=== PATIENT | male | born 1945 | race Caucasian/White ===

== ENCOUNTER 2024-06-05 08:46 | Observation (INO) ==
--- NOTE | 2024-06-05 10:12 | History & Physical Bridge Note ---
Date of Service June 05, 2024 History & Physical Bridge Note I have examined the patient, reviewed the History & Physical and in the interval since the performance of the History & Physical I have noted the following changes of clinical significance: no changes noted
--- NOTE | 2024-06-05 10:12 | Pre Anesthesia Assessment ---
Date of Service June 05, 2024 Pre Sedation Assessment Vital Signs Temp Resp BP Pulse Ox O2 Del Method 06/05/24 09:07 98.8 F 14 168/83 H 100 Room Air Cardiovascular + regular rate Respiratory + respiratory effort normal Pre-Sedation Airway Assessment Smoking Status: Never smoker Hx Sleep Apnea: No Hx Difficult Intubation: No Short, Thick Neck: No Thyromental Distance: > or= 3.5 Finger Breadths Oral Cavity: + WNL Mallampati Class: II ASA: ASA2 NPO Status Date of Last Intake of Fluids: 06/04/24 Time of Last Intake of Fluids: 18:00 Date of Last Intake of Solid Food: 06/04/24 Time of Last Intake of Solid Foods: 18:00 Procedure Planning Contraindications for Sedation: none Current Medications Reviewed: Yes Notes The planned sedation has been discussed with the patient. Informed Consent was obtained. I have identified the patient, determined the appropriateness of sedation and have assessed the patient immediately prior to the procedure. All medicine(s) and interventions are by my order.
[2024-06-05] MEDS: LIDOCAINE 1% LOCAL 20 ML VIAL ONE (10:21)
[2024-06-05] MEDS: HEPARIN (PORCINE) 1000 UNIT/ML 10 ML (CATH LAB USE ONLY) ONE (11:47)
[2024-06-05] MEDS: fentaNYL citrate PF 100 MCG/2 ML VIAL ONE (11:47)
[2024-06-05] MEDS: MIDAZOLAM HCL 1 MG/ML 2ML VIAL ONE ×2 (11:47→11:49)
[2024-06-05] MEDS: niCARdipine HCL INJ 2.5 MG/ML 10 ML AMP ONE (11:48)
[2024-06-05] MEDS: NITROGLYCERIN/D5W 100MCG/ML 20ML SYR ONE (11:48)
[2024-06-05] MEDS: hydrALAZINE HCL 20 MG/ML VIAL ONE (11:49)
[2024-06-05] MEDS ORDERED: ONDANSETRON INJ 2 MG/ML 2 ML VIAL IV PRN (13:10)
[2024-06-05] MEDS ORDERED: PHARMACY GLYCEMIC MGMT CONSULT PRN (13:20)
[2024-06-05] MEDS ORDERED: CARBOHYDRATES FOR HYPOGLYCEMIA PO PRN (13:20)
[2024-06-05] MEDS ORDERED: DEXTROSE 50% 50 ML SYRINGE IV PRN (13:20)
[2024-06-05] MEDS ORDERED: GLUCOSE 10 TAB/TUBE PO PRN (13:20)
[2024-06-05] MEDS ORDERED: GLUCOSE 40% GEL 15 GM TUBE PO PRN (13:20)
[2024-06-05] MEDS ORDERED: GLUCAGON FOR INJ 1 MG VIAL SQ PRN (13:20)
[2024-06-05] MEDS: HEPARIN SODIUM/DEXTROSE 25,000 UNITS/500 ML BAG IV SCH (13:20)
[2024-06-05] MEDS ORDERED: NON-FORMULARY MEDICATION (Insulin Lispro [Humalog Kwikpen Insulin] 100 unit/mL insulin pen SQ SCH (13:30)
[2024-06-05] MEDS: Heparin IV Adult Wt-Based Standard *NO* INITIAL Bolus Protocol IV STA (16:34)
[2024-06-05] MEDS: HEPARIN 25000 UNIT/500 ML D5W IV ONE (16:34)
--- NOTE | 2024-06-05 17:55 | Post Anesthesia Assessment ---
Date of Service June 05, 2024 Post Sedation Assessment Vital Signs Temp Pulse Resp BP Pulse Ox O2 Del Method 06/05/24 17:24 98.1 F 85 19 154/61 H 96 Room Air 06/05/24 16:13 98.1 F 83 19 146/64 H 97 Room Air 06/05/24 15:30 83 18 122/65 97 Room Air 06/05/24 15:15 79 18 130/56 L 97 Room Air 06/05/24 15:00 80 18 118/56 L 98 Room Air 06/05/24 14:45 77 18 120/54 L 96 Room Air 06/05/24 14:30 80 18 119/54 L 97 Room Air 06/05/24 14:15 85 18 130/57 L 98 Room Air 06/05/24 14:00 76 18 125/50 L 98 Room Air 06/05/24 13:45 78 18 127/54 L 97 Room Air 06/05/24 13:30 76 18 126/57 L 99 Room Air 06/05/24 13:15 78 18 124/52 L 98 Room Air 06/05/24 13:00 78 18 130/49 L 97 Room Air 06/05/24 12:45 78 18 118/56 L 97 Room Air 06/05/24 09:07 98.8 F 14 168/83 H 100 Room Air Recovery Score Activity: Moves 4 extremities Respiration: Deep Breath/Cough Circulation: +/-20% PreAnes Value Consciousness: Fully Awake Oxygen Saturation: O2 needed for >90% Post Anesthesia Score: 10 Discharge Sedation Level of Care: Fast Track Phase II Post Sedation Plan On clinical assessment, the patient appears to have tolerated the sedation without complications. Patient is recovering as anticipated. Patient will continue to be monitored by nursing and may be discharged when sedation discharge criteria are met per below protocol. Upon Completions of procedure up to 15 minutes continue every 5 minute vital signs and the P.A.R. score; then discharge to a Phase I or Fast Track to Phase II per the following guidelines: * Discharge Patient to appropriate Phase II area if PAR is 8 or greater or return to pre- procedure baseline. The post - procedure orders will be as directed. * If PAR score is less than 8 or not return to pre-procedure baseline then patient will follow Phase I monitoring till PAR is reached for Phase II. The Phase I may be done in procedure room or may call to secure a Phase I area. * If naloxone or flumazenil are used for reversal, hold in Phase I for continued monitoring from when last reversal dose was given for a minimum of 60 minutes or longer pending the nurse and/or physician discretion of patient condition before discharge to Phase II. Please call the Sedation Physician to re-evaluate and complete post-note for discharge to Phase II area. Do NOT discharge from procedure sedation or Phase 1 until post- sedation evaluation note is complete by procedure /sedation MD Sedation Discharge Instructions to be given to the patient at discharge to home.
[2024-06-05] MEDS: INSULIN ASPART PER UNIT CHARGE SC SCH (17:59)
[2024-06-05] MEDS: SODIUM CHLORIDE 0.9% 1,000 ML IV SCH (17:59)
--- NOTE | 2024-06-05 21:47 | Endovascular Procedure Note ---
[facility] Endovascular Procedure Rpt Pre & Post Diagnosis Peripheral arterial disease I identified the patient and participated in the time-out.: Yes Procedure Operation Date: 06/05/24 10:00 Actual Procedures p Angio Extremity Unilateral - Devan Farr MD s Tibial Peroneal Balloon - Devan Farr MD Surgeon Devan Farr MD Audio Visual Technician Sury Estimated Blood Loss 25 Findings See Below Right lower extremity-- -External iliacwidely patent -ASSISTANT OPERATOR, profunda widely patent -SFA widely patent proximally Left lower extremity-- -SFA widely patent -Rdohhedra88% mid segment stenosis (no pullback gradient) -ALETHA patent proximally, sluggish flow in distal segment prior to 100% short occlusion just above the ankle -BUSINESS AND MARKETING TEACHER calcified distally with diffuse 40% disease. Severe diffuse disease has wraps around the ankle. -Peroneal patent proximally, diffuse disease distally tapers just above the ankle and gives off collaterals to the foot (lateral tarsal) Plantar arteries diffusely disease and extends to the forefoot. -DPA partially reconstitutes in hindfoot via collaterals, diffusely diseased, trickle flow to deep plantar. Anesthesia Type RN Sedation Radiation Exposure (mGv) Radiation (mGy): 176 Contrast Contrast: 130 Disposition Accompanied Patient To Recovery: Yes Disposition: PCU Description of Procedure 5 Fr ASSISTANT OPERATOR access obtained under ultrasound guidance, short 5Fr sheath placed Up and over with RIM catheter. Selective angiography with quick cross catheter placed in distal SFA 6 Fr 90 cm destination sheath placed from right ASSISTANT OPERATOR to left popliteal 0.14 command wire navigated into distal ALETHA With the aid of a Corsair catheter eventually able to navigate to the area of occlusion and after attempts with multiple different wires eventually distal occlusion crossed with 0.14 command. Intraluminal position confirmed via injection through catheter. Distal ALETHA into DPA/lateral tarsal dilated with 1.5 and 2.0 balloons Post angioplasty still with no reflow in distal ALETHA. Distal ALETHA further dilated with 2.5 balloon Noted to have reduced collateral flow and mid peroneal noted to be newly occluded with some evidence of thrombus at bifurcation of BUSINESS AND MARKETING TEACHER/peroneal Additional heparin, vasodilators administered Peroneal occlusion crossed with 0.18 Gladius Mungo wire Angioplasty of mid to distal peroneal with 2.0 balloons Additional vasodilators administered Post procedure had brisk proximal tibial vessel flow. Still with limited flow in distal ALETHA and distal peroneal into collaterals. Further attempts at angioplasty unlikely to change current flow. Decision to finish procedure and admit for IV heparin administration overnight. Contrast used: 130 mL Moderate sedation: [id number] Access closure: Angio-Seal Summary: 1. Left lower extremity --40% distal popliteal (no pullback gradient), 100% distal ALETHA occlusion at level of the ankle. Peroneal tapers prior to ankle and gives collaterals to pedal vessels. Distal BUSINESS AND MARKETING TEACHER into the foot with diffuse disease. Small diffusely diseased pedal vessels with limited flow to the toes. 2. Angioplasty of distal ALETHA into the foot with limited pedal outflow 3. Angioplasty of acute thrombotic occlusion of mid peroneal artery with 2.0 balloon Recommendations: With likely distal thrombus impacting flow through small diffusely diseased pedal vessels will admit for IV heparin administration overnight. Plan for discharge on DOAC No other real options for further revascularization. Follow-up noninvasive testing in 1 to 2 weeks I attest to the content of the Intraoperative Record and any orders documented therein. Any exceptions are noted below. Vascular Charges Angiography/Venography Procedure 1: Angiography/Venography charges: [id number] Initial 3rd order or selective abd, pelvic, or LE branch Lower Extremity Interventions Procedure 1: Lower Extremity Intervention charges: [id number] Angioplasty, tibial, peroneal artery, unilateral, initial vessel Procedure 2: Lower Extremity Intervention charges: [id number] Angioplasty, tibial, peroneal artery, UL each add'l vessel Additional Services Procedure 1: Additional Services Charges: 09543 Ultrasound guidance - vascular access Procedure 2: Additional Services Charges: 87320 Moderate sedation initial 15 min Procedure 3: Additional Services Charges: 57227 Moderate sedation, each additional 15 min
[2024-06-05 22:22] LABS: ANTI-Xa, UFH(UnfractionatedHep 1.31 IU/ml (0.3-0.7)
[2024-06-06 01:22] LABS: ANTI-Xa, UFH(UnfractionatedHep 0.47 IU/ml (0.3-0.7)
[2024-06-06] MEDS: INSULIN ASPART PER UNIT CHARGE SC SCH (02:45)
[2024-06-06] MEDS: LEVOTHYROXINE SODIUM 50 MCG TABLET PO SCH (06:06)
[2024-06-06 07:55] LABS: Basophils # (auto) 0.06 K/uL (0.00-0.20); Basophils % (auto) 0.5 %; Eosinophils # (auto) 0.17 K/uL (0.00-0.50); Eosinophils % (auto) 1.4 %; Hematocrit (blood only) 27.5 % (42.0-52.0); Hemoglobin 9.2 g/dl (14.0-18.0); Immature Granulocytes # (auto) 0.06 K/uL (0.01-0.20); Immature Granulocytes % (auto) 0.5 %; Lymphocytes # (auto) 2.17 K/uL (1.20-3.40); Lymphocytes % (auto) 18.1 %; Mean Corpuscular Hemoglobin 30.2 pg (25.0-34.0); Mean Corpuscular Hgb Conc 33.5 g/dL (32.0-36.0); Mean Corpuscular Volume 90.2 fL (80.0-100.0); Mean Platelet Volume 8.6 fL (9.4-12.4); Monocytes # (auto) 0.95 K/uL (0.11-0.59); Monocytes % (auto) 7.9 %; Neutrophils # (auto) 8.55 K/uL (1.40-6.50); Neutrophils % (auto) 71.6 %; Platelet Count 345 K/uL (130-400); RDW Coefficient of Variation 12.6 % (11.5-14.5); Red Blood Count 3.05 M/uL (4.70-6.10); White Blood Count 11.96 K/ul (4.8-10.8)
[2024-06-06 08:19] LABS: ANTI-Xa, UFH(UnfractionatedHep 0.43 IU/ml (0.3-0.7)
[2024-06-06 08:20] LABS: BUN Creatinine Ratio 19.2 (10-20); Calcium 8.3 mg/dl (8.6-10.3); Creatinine Clr Calc Pharmacy 54.6 ml/min; Est GFR (African American) 83.6 ml/min; Est GFR (Non-African American) 72.1 ml/min; Potassium 3.8 mmol/L (3.5-5.1)
[2024-06-06] MEDS: LANTUS PER UNIT CHARGE SQ SCH (08:42)
[2024-06-06] MEDS: ATORVASTATIN 40 MG TAB PO SCH (08:45)
[2024-06-06] MEDS: CLOPIDOGREL BISULFATE 75 MG TAB PO SCH (08:46)
[2024-06-06] MEDS: ASPIRIN 81 MG ECTAB PO SCH (08:46)
[2024-06-06 08:47] LABS: Estimated Average Glucose 171 mg/dl; Hemoglobin A1C 7.6 % (4.5-5.6)
[2024-06-06] MEDS ORDERED: NON-FORMULARY MEDICATION (Coenzyme Q10 100 mg capsule) PO SCH (09:00)
--- NOTE | 2024-06-06 12:40 | Pharmacy Report ---
Pharmacy Glycemic Short Note 2 - Date of Service June 06, 2024 - Glycemic Short BSG Results (Last 24 hours): 06/05/24 06/05/24 06/06/24 16:59 20:53 02:42 Glucose POC Glucose 153 H 182 H 102 H 06/06/24 06/06/24 06/06/24 07:15 07:34 11:30 Glucose 121 H POC Glucose 139 H 236 H OUTPATIENT ANTIDIABETIC REGIMEN: * Lantus 14 units SQ qAM * Humalog SSI, plus * 3 units with breakfast * 3-5 units with lunch * 4-10 units with dinner * HbA1c: 7.6% (06/06/24) ASSESSMENT: * Mr Gonzalez is a 79yo diabetic M, POD #1 s/p CCL procedure yesterday with Dr Farr. * Pt is currently on an IV heparin gtt, which contains dextrose. * Pt was initiated on basal/bolus insulin regimen on admission. * Pharmacy will continue to follow and adjust regimen as indicated. PLAN FOR INPATIENT GLYCEMIC CONTROL: * Basal insulin * Lantus 14 units SQ qAM * Bolus insulin * NovoLog per scale ACHS or Q6hrs while NPO * Goal Range: Low 110 mg/dL - High 140 mg/dL * Correction Factor: 35 mg/dL/unit * Nutritional / Prandial insulin per carb ratio of 1 unit per 12 grams CHO consumed
--- NOTE | 2024-06-06 17:01 | Discharge Summary ---
Date of Service June 06, 2024 Admission HPI Per Admitting Provider Mr. Gonzalez is a very pleasant 79-year-old man seen in office today for LT lower extremity ulceration in the setting of PAD. Prior medical history remarkable for type 1 diabetes (diagnosed in 1970s), coronary artery disease post 4vCABG 2002, mild to moderate , hypertension, dyslipidemia, stage III CKD, hypothyroidism, <50% carotid artery disease, chronic right bundle branch block. Life-long non-smoker. For the last 2 to 3 months has been dealing with nonhealing ulcers involving first, second toes on left foot and lateral aspect of foot at fifth metatarsal. Following with podiatry regularly in [place]. Painting dry gangrene wounds with Betadine, on doxycycline. Has previously followed with [facility] vascular. Is post partial amputation of right great toe in the setting of nonhealing ulcer. Underwent abdominal aortogram 12/2023 at that time which showed three-vessel runoff with severe small vessel disease. Per report recent BETSY NC. Right toe pressure 51, left toe pressure 0. Underwent left lower extremity angiogram with Dr. Cifuentes at [facility] 05/17/2024. Described as follows - Widely patent SFA/popliteal. Proximal tibial vessels patent, peroneal tapers distally. ALETHA and DYE HOUSE HELPER tapers at the level of the ankle and gives rise to only collaterals in the foot. Small vessel disease in the foot with minimal flow out to digits. At baseline active. Prior to wound no rest pain in feet bilaterally. No claudication. Does feel that left feet is more painful to walk on since wounds and has some calf pain as well. Sensation remains intact. 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 Went to [place] with Shaista's parents. Non-smoker denies any alcohol. Discharge Data Procedures Performed Operation Date: 06/05/24 10:00 Actual Procedures p Angio Extremity Unilateral - Devan aFrr MD s Tibial Peroneal Balloon - Devan Farr MD Hospital Course (1) PAD (peripheral artery disease): Plan Patient underwent repeat angiography of left lower extremity in the hopes of intervention to distal tibial vessel disease. Repeat angiogram confirmed short ALETHA occlusion at the level of the ankle and severe diffuse disease and distal DYE HOUSE HELPER as wraps around the ankle with diffuse small pedal vessel disease. Intervention to left ALETHA with angioplasty with 1.5, 2.0 and 2.5 balloons. Post angioplasty had only limited flow into small DPA/lateral tarsal artery. On post angiography noted to have reduced collateral flow and peroneal artery shown to be newly occluded in the midsegment with apparent residual clot at bifurcation of peroneal/DYE HOUSE HELPER. Flow reestablished into distal peroneal with angioplasty of mid segment with 2.0 balloon. Post angioplasty continued to have sluggish collateral flow in the foot thought in part secondary to intraprocedure distal thromboembolism. Decision to admit for observation and for IV heparin overnight. Overnight patient remained comfortable with no new foot pain. Telemetry unremarkable. On postprocedural labs creatinine stable. Hemoglobin 9.6, A1c 7.6. On postprocedure day 1 feeling well. Had improved dopplerable DP/ALETHA pulse. Forefoot warm. Sluggish capillary refill in 3rd/4th digits. No apparent access site complications. Discharged to home on oral anticoagulation with Eliquis and new clopidogrel. Prior cilostazol/aspirin discontinued. Has scheduled follow-up with wound clinic on Saturday 06/09. Follow-up with vascular medicine in 1 to 2 weeks with repeat BETSY/TBI. Will consider increasing amlodipine, reducing beta-diogo. Discharge Instructions Home Medications atorvastatin 40 mg tablet 40 mg PO DAILY 08/24/19 [History Confirmed 06/05/24] blood sugar diagnostic (OneTouch Ultra Blue Test Strip) #10 ea 08/24/19 [History Confirmed 11/27/19] brimonidine 0.1 % eye drops See Rx Instructions ophthalmic (eye) .COMPLEX 08/24/19 [History Confirmed 06/05/24] cholecalciferol (vitamin D3) 50 mcg (2,000 unit) capsule 2,000 units PO DAILY #90 caps 08/24/19 [History Confirmed 06/05/24] coenzyme Q10 100 mg capsule 100 mg PO DAILY 08/24/19 [History Confirmed 06/05/24] insulin syringe-needle U-100 0.3 mL 31 gauge x 5/16" (BD Insulin Syringe Ultra- Fine) #10 ea 08/24/19 [History Confirmed 11/27/19] levothyroxine 50 mcg tablet 50 mcg PO DAILY #90 tabs 08/24/19 [History Confirmed 06/05/24] ipjbodvs-breduvdl-wxlcm acid 400 mcg-vit K 20 mcg-lycop 300 mcg tablet (One-A-Day Men's Multivitamin) 1 tab PO DAILY 08/24/19 [History Confirmed 06/05/24] pen needle, diabetic 32 gauge x 5/32" (BD Ultra-Fine Rupal Pen Needle) #10 ea 08/24/19 [History Confirmed 11/27/19] glucagon (human recombinant) 1 mg solution for injection (Glucagon Emergency Kit) 1 mg subcut Q20M PRN hypoglycemia #1 ea 09/15/19 [Rx Confirmed 06/05/24] alendronate 35 mg tablet 35 mg PO .COMPLEX 05/22/24 [History Confirmed 06/05/24] amlodipine 2.5 mg tablet 2.5 mg PO DAILY #30 tabs 05/22/24 [Rx Confirmed 06/05/24] cetirizine 10 mg tablet (Allergy Relief (cetirizine)) 10 mg PO DAILY PRN Hypoglycemia 05/22/24 [History Confirmed 06/05/24] insulin glargine 100 unit/mL subcutaneous solution (Lantus U-100 Insulin) 14 unit subcut QAM 05/22/24 [History Confirmed 06/05/24] insulin lispro 100 unit/mL subcutaneous pen (Humalog KwikPen (U-100) Insulin) See Rx Instructions subcut .COMPLEX 05/22/24 [History Confirmed 06/05/24] metoprolol tartrate 50 mg tablet 50 mg PO BID 05/22/24 [History Confirmed 06/05/24] timolol 0.25 % eye drops 1 drp ophthalmic (eye) DAILY 05/22/24 [History Confirmed 06/05/24] apixaban 5 mg tablet (Eliquis) 5 mg PO BID #60 tabs 06/06/24 [Rx] clopidogrel 75 mg tablet 75 mg PO DAILY #30 tabs 06/06/24 [Rx] Coding Level of Care Code 00486 IN/OBS DISCH 30 MIN/LESS Diagnoses PAD (peripheral artery disease) I73.9
== END 2024-06-06 15:38 | disposition home or self-care (01) ==
LOC: EP 08:46 → 4W 08:46
PROC: CLB.AEU (2024-06-05 10:00)

== ENCOUNTER 2024-07-04 08:28 | Inpatient (IN) ==
--- NOTE | 2024-07-03 09:18 | Anesthesiology Consultation ---
Date of Service July 03, 2024 Assessment & Plan (1) Encounter for pre-operative examination: Plan - check BSG and BMP STAT am DOS. Fluid orders to anesthesiologist review DOS. - hyponatremia, 127: Case discussed in detail with Dr. Raymundo who advised notifying surgeon's office and plan will be to repeat BMP DOS given nature of the procedure. Final determination on proceeding/post-op care will pend repeat BMP DOS. Surgeon's office made aware. - medical clearance 06/29/24 [facility]: "...L BKA...cleared to proceed with surgery...low medical risk..." - cardiology office visit 05/03/24: "...small vessel disease and asx carotid disease...severe small vessel disease with 3-vessel runoff not requiring intervention...developed left foot wounds about 8 weeks ago...dry gangrene of the left foot...repeat carotid doppler in 1 year..." - Per painter sign maintenance on 06/29/24: No known infectious disease contacts, current infectious disease symptoms in past 10 days or COVID positive test result in the past 30 days. Chart Review Chart Review: Acceptable Risk for Surgery and Patient NOT seen in Pre Admission Testing History Surgery Operation Date: 07/04/24 10:10 Proposed Procedures p Left Below Knee Amputation - Marquis Dominguez MD Height/Weight Height: 5 ft 6 in Weight: 65.771 kg Allergies Allergy/AdvReac Type Severity Reaction Status Date / Time amoxicillin [From Augmentin] AdvReac Severe Vomiting Verified 06/29/24 13:09 clavulanic acid AdvReac Severe Vomiting Verified 06/29/24 13:09 [From Augmentin] codeine AdvReac Severe Vomiting Verified 06/29/24 13:09 sulfamethoxazole AdvReac Severe Vomiting Verified 06/29/24 13:09 [From Bactrim] trimethoprim [From Bactrim] AdvReac Severe Vomiting Verified 06/29/24 13:09 Medications Home Medications Medication Instructions Recorded Confirmed Last Taken atorvastatin 40 mg tablet (Lipitor) 40 mg PO 1700 08/24/19 06/29/24 06/04/24 blood sugar diagnostic (OneTouch #10 ea 08/24/19 06/27/24 Unknown Ultra Blue Test Strip) cholecalciferol (vitamin D3) 50 2,000 units PO 1200 #90 caps 08/24/19 06/29/24 06/04/24 mcg (2,000 unit) capsule coenzyme Q10 100 mg capsule 100 mg PO QPM 08/24/19 06/29/24 06/04/24 insulin syringe-needle U-100 0.3 #10 ea 08/24/19 06/27/24 Unknown mL 31 gauge x 5/16" (BD Insulin Syringe Ultra-Fine) levothyroxine 50 mcg tablet 50 mcg PO QAM #90 tabs 08/24/19 06/29/24 06/04/24 frehytoj-sipripie-bxkaj acid 400 1 tab PO DAILY 08/24/19 06/29/24 06/04/24 mcg-vit K 20 mcg-lycop 300 mcg tablet (One-A-Day Men's Multivitamin) pen needle, diabetic 32 gauge x #10 ea 08/24/19 06/27/24 Unknown 32" (BD Ultra-Fine Rupal Pen Needle) glucagon (human recombinant) 1 mg 1 mg subcut Q20M PRN hypoglycemia 09/15/19 06/29/24 Unknown solution for injection (Glucagon #1 ea Emergency Kit) alendronate 35 mg tablet 35 mg PO WK 05/22/24 06/29/24 Unknown cetirizine 10 mg tablet (Allergy 10 mg PO QPM 05/22/24 06/29/24 06/04/24 Relief (cetirizine)) insulin glargine 100 unit/mL 14 unit subcut QAM 05/22/24 06/29/24 06/04/24 subcutaneous solution (Lantus U-100 Insulin) insulin lispro 100 unit/mL See Rx Instructions subcut .COMPLEX 05/22/24 06/29/24 06/04/24 subcutaneous pen (Humalog KwikPen (U-100) Insulin) timolol 0.25 % eye drops 1 drp ophthalmic (eye) BID 05/22/24 06/29/24 06/04/24 apixaban 5 mg tablet (Eliquis) 5 mg PO BID #60 tabs 06/06/24 06/29/24 Unknown doxycycline hyclate 100 mg capsule 100 mg PO QPM 06/20/24 06/29/24 Unknown brimonidine 0.1 % eye drops 1 drp ophthalmic (eye) BID 06/27/24 06/29/24 Unknown (Alphagan P) gabapentin 300 mg capsule 300 mg PO .COMPLEX #90 caps 06/27/24 06/29/24 Unknown tramadol 50 mg tablet 100 mg (2 x 50 mg) PO .BID-TID PRN 06/27/24 06/29/24 Unknown pain #50 tabs amlodipine 2.5 mg tablet 2.5 mg PO 1200 06/29/24 06/29/24 Unknown clopidogrel 75 mg tablet 75 mg PO QPM 06/29/24 06/29/24 Unknown metoprolol succinate 50 mg 50 mg PO BID 06/29/24 06/29/24 Unknown tablet,extended release 24 hr Past Medical History Medical History Amputation of toe of right foot partial big toe amputation CAD (coronary artery disease) Chronic kidney disease stage 3 Glaucoma Ashlie thyroiditis per medical record, pt unaware History of flexible sigmoidoscopy Hyperlipidemia Hypertension Hypothyroidism Necrosis left foot toes and base of foot -> reason for the doxycycline prophylactic treatment On anticoagulant therapy preventative treatment for a clot that developed during patient's angiogram at [facility] 05/2024 Osteopenia Proliferative diabetic retinopathy PVD (peripheral vascular disease) S/P angiogram of extremity left leg (05/2024) at [facility] with Dr. Farr left leg (11/2023) [facility] Type 1 diabetes Past Family History Family History Father Gout Other No family history of adverse response to anesthesia Past Surgical History Surgical History History of cardiac cath (09/2003) at [facility]. no stents History of cataract surgery bilateral History of colonoscopy Hx of CABG (10/11/03) quadruple bypass at [facility] S/P eye surgery retinopexy bilateral laser surgery Social History Smoking Status: Never smoker Do You Dip or Chew Tobacco: No Hx Alcohol Use: Yes alcohol intake frequency: a few times a month Hx Substance Use: No substance use type: does not use Lab Results Anesthesia Preop Results Results Anesthesia Widget: WBC 15.27 K/ul (4.8-10.8) H 06/30/24 Hgb 9.7 g/dl (14.0-18.0) L 06/30/24 Hct 29.4 % (42.0-52.0) L 06/30/24 Plt 481 K/uL (130-400) H 06/30/24 Na 127 mmol/L (136-145) L 06/30/24 K 4.6 mmol/L (3.5-5.1) 06/30/24 Cl 93 mmol/L (98-107) L 06/30/24 CO2 25 mmol/L (21-32) 06/30/24 BUN 25 mg/dl (6-23) H 06/30/24 Creat 1.13 mg/dl (0.6-1.4) 06/30/24 Glucose Level 76 mg/dl (70-99(Fasting)) 06/30/24 POC Glucose 236 mg/dl (70-99) H 06/06/24 HA1c 7.7 % (4.5-5.6) H 06/30/24 Testing Laboratory Results Surgeon's office made aware of leukocytosis with left shift and anemia. Electrocardiogram Date: 07/03/24 NSR, rate 76 bpm RBBB Unconfirmed-pending anesthesiologist evaluation am DOS Echocardiogram Date: 04/05/24 EF 55-60% Mild to moderate mitral regurgitation Mild tricuspid regurgitation Other Testing Carotid doppler 05/03/24 < 50% stenosis bilat
[2024-07-04 09:23] LABS: BUN Creatinine Ratio 19.8 (10-20); Calcium 9.4 mg/dl (8.6-10.3); Creatinine Clr Calc Pharmacy 48.7 ml/min; Est GFR (African American) 72.8 ml/min; Est GFR (Non-African American) 62.8 ml/min; Potassium 4.3 mmol/L (3.5-5.1)
[2024-07-04] MEDS: LACTATED RINGER'S 1,000 ML IV SCH (09:43)
[2024-07-04] MEDS: INSULIN ASPART PER UNIT CHARGE SC STA (10:31)
--- OUTSIDE RECORDS SUMMARY | 2024-07-04 10:38 | External Medical Summary | Summary of Care ---
Author Name Unknown Organization [facility] Address [address] [place] [address] Phone [phone] Care Team Providers Care Event Specialist Name Role Phone Louisa Quiroga DO Primary Care Provider [phone] Reason for Visit * Reason Comments EKG Encounter Details Date Type Department Care Team (Late st Contact Info) Description 07/03/2024 9:00 AM EDT Nurse Only Ancillary [address], [place] [address] [place] [address] [place], Nurse [facility] [address] [place] [address] EKG Allergies Active Allergy Reactions Criticality Noted Date Comments Amoxicillin Nausea/vomiting 02/12/2023 Morphine And Codeine Nausea/vomiting Low 02/28/2010 Pollen 02/28/2010 Guaifenesin-Codeine Nausea/vomiting Low 02/28/2010 Sulfamethoxazole-Trimethoprim Nausea/vomiting 0 06/17/2018 documented as of this encounter (statuses as of 07/03/2024) Medications Medication Sig Dispensed Refills Start Date End Date Status ALPHAGAN P 0.1 % OP SOLN ONE DROP IN BOTH EYES TWICE DAILY Active ONETOUCH ULTRA TEST STRPIndications:DM type 1, goal A1c below 7 as directed 1 Box 11 12/04/2010 Active VIAGRA 50 MG PO TABSIndications:Impot ence of organic origin 1/4 TABLET NEEDED 5 Tab 11 05/15/2011 Active LANTUS 100 UNIT/ML SUBQ SOLNIndications:DM type 1, goal A1c below 7 INJECT 24 UNITS IN THE AM 3 Vial 3 08/17/2011 Active Additional Information Patient taking differently:Subcutaneous,13 units in the morning, Reported on 03/02/2024 Multivitamin Adult Oral Tablet Take 1 Capsule by mouth in the morning. Active Cetirizine HCl 10 MG Oral Tablet Chewable Take 1 Tablet by mouth. Active CoQ-10 100 MG Oral Capsule Take by mouth. Active Atorvastatin Calcium 40 MG Oral Tablet (Lipitor)Indications: Dyslipidemia, goal LDL below 70 Take 1 Tablet by mouth in the morning. 90 Tablet 3 06/15/2023 Active HumaLOG 100 UNIT/ML Subcutaneous Solution (insulin lispro (human))Indications:T ype 1 diabetes mellitus with hemoglobin A1c goal of less than 7.0% ([facility]) Sliding scale 8-12 units prior to meals 4 Each 5 06/15/2023 Active Insulin Syringe-Needle U-100 31G X 1/4" 0.3 MLIndications:Diabete s mellitus with background retinopathy ([facility]) Use as directed. For use of insulin up to 4 times daily 400 Each 3 07/24/2023 Active Levothyroxine Sodium 50 MCG Oral Tablet (Levoxyl)Indications: Acquired hypothyroidism TAKE 1 TABLET BY MOUTH DAILY FIRST THING IN THE MORNING 90 Tablet 1 01/20/2024 Active Metoprolol Succinate ER 50 MG Oral Tablet Extended Release 24 Hour (toPROL XL) TAKE 1 TABLET BY MOUTH IN THE MORNING 90 Tablet 1 02/08/2024 Active Vitamin D3 250 MCG (24704 UT) Oral Tablet (Cholecalciferol) Take 1 Tablet by mouth every evening. Active Timolol Maleate 0.25 % Ophthalmic Solution (Timoptic) Instill 1 Drop into both eyes in the morning and 1 Drop before bedtime. 07/07/2023 Active Pen Henry 31G X 5 MMIndications:Type 1 diabetes mellitus with hemoglobin A1c goal of less than 7.0% ([facility]) Use as directed. 400 Each 3 03/14/2024 Active Alendronate Sodium 35 MG Oral Tablet (Fosamax)Indications: Osteoporosis, unspecified osteoporosis type, unspecified pathological fracture presence Take 1 Tablet by mouth once a week. Take in the morning with a full glass of water, on an empty stomach, and do not take anything else by mouth or lie down for the next 30 min. 12 Tablet 3 06/19/2024 Active Apixaban 5 MG Oral Tablet (Eliquis) Take 1 Tablet by mouth in the morning and 1 Tablet before bedtime. Active Clopidogrel Bisulfate 75 MG Oral Tablet (Plavix) Take 1 Tablet by mouth in the morning. Active traMADol HCl 50 MG Oral Tablet Take 2 Tablets by mouth every 8 hours as needed for Pain, Severe. Active documented as of this encounter (statuses as of 07/03/2024) Active Problems Problem Noted Date Diagnosed Date Osteopenia 03/02/2024 Nonrheumatic aortic valve stenosis 04/08/2022 Essential hypertension 10/07/2018 Glaucoma 10/07/2018 CKD stage 3 due to type 1 diabetes mellitus 08/22 Diabetic retinopathy associa alexandra with type 1 diabetes mellitus 09/07/2018 Hypothyroidism 09/07/2018 Posterior vitreous detachment of left eye 2017 Right bundle branch block 07/28/2018 Carotid stenosis, asymptomatic, bilateral 2016 Type 1 diabetes mellitus with hyperglycemia 02/21 Peripheral vascular disease 05/10/2013 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 02/28/2010 GLAUCOMA 02/28/2010 OSTEOARTHRITIS 02/28/2010 HYPERKALEMIA 02/28/2010 CATARACTS 02/28/2010 Type 1 diabetes mellitus wit h hemoglobin A1c goal of less than 7.0% 02/28/2010 Overview: ICD-10 update of inactive term Pure hypercholesterolemia 07/01/2009 documented as of this encounter (statuses as of 07/03/2024) Resolved Problems Problem Noted Date Diagnosed Date Resolved Date RENAL INSUFFICIENCY 07/08/2010 03/02/20 24 documented as of this encounter (statuses as of 07/03/2024) Immunizations Name Administration Dates Next Due COVID-19 mRNA, LNP-s, No Pre serve, 2-Dose Series (Pfizer) 09/05/2021,01/30/2021,01/03/2021 DTaP Dipth/Tet/Acell Pertussis (Infanrix), Peds 04/13/2022 Pneumococcal Conjugate Vacc, 13 Valent (Prevnar) 07/29/2016 Pneumococcal Polysaccharide PPV23 (Pneumovax) 10/11/2014,11/22/2003 RSV Vac., Recomb, Adjuvant, PF,0.5 Ml (Arexvy) 10/08/2023 SARS-COV-2 (COVID-19) Vaccin e Unspecified 08/21/2022 Seasonal Influenza, Quadriva lent Hd (Fluzone Hd) 08/09/2023 Seasonal Influenza, Quadrivalent, ID 07/2019,07/29/2016,08/28/2015,08/01,08/24/2011,09/10/2009,10/13/2004 Seasonal Influenza, Recombin ant, RIV4, PF, (Flublock) 09/02/2022,09/03/2021,09/02/2020,08/30 Seasonal Influenza, Split, I IV3, With Preserve, Inj 09/03/2021,09/02/2020,08/30/2019,07/29,08/28/2015,08/01/2013,08/24/2011 ,09/10/2009,10/13/2004 TD, Preservative Free 11/22/1997 TDAP, Age 7 and older, IM (Adacel) 04/09/2011 Varicella Zoster Vaccine (Adult) 05/27/2011 Zoster Vaccine Recombinant (Shingrix) 10/05/2018 ,04/04/2018 documented as of this encounter Social History Tobacco Use Types Packs/Day Years Used Date Smoking Tobacco: Never Smokeless Tobacco: Never Alcohol Use Standard Drinks/Week Comments Yes 5.8 (1 standard drink = 0.6 oz p ure alcohol) PHQ-2 Answer Date Recorded PHQ Adult Total Score 11 06/29/2024 Hunger Vital Sign Answer Date Recorded Within the past 12 months, y ou worried that your food would run out before you got the money to buy more. Never true 06/29/20 24 Within the past 12 months, t he food you bought just didn't last and you didn't have money to get more. Never true 06/29/2024 Childcare Answer Date Recorded Do you feel overwhelmed with taking care of a child, family member or friend? No 06/29/2024 Does your family need help f inding childcare? (Household - for ages 0-17 years) Not on file 06/29/2024 Clothing Answer Date Recorded Have you been unable to get clothing when it was really needed? No 06/29/2024 Is your family able to get c lothes or diapers when needed? (Household - for ages 0-17 years) Not on file 06/29/2024 Personal Safety Answer Date Recorded Do you feel unsafe or have concerns for your saf ety? No 06/29/2024 Do you have concerns for you r family's safety? (Household - for ages 0-17 years) Not on file 06/29/2024 Utilities Answer Date Recorded Do you have trouble paying y our heating, water, or electric bill? No 06/29/2024 Is your family able to pay t he heat, water, or electric bill? (Household - for ages 0-17 years) Not on file 06/29/2024 Does your family have access to good internet? (Household - for ages 0-17 years) Not on file 06/29/2024 Employment Status Answer Date Recorded Are you unemployed or without regular income? No 06/29/2024 Does the household have a re gular source of income? (Household - for ages 0-17 years) Not on file 06/29/2024 Social Connections Answer Date Recorded How often do you feel lonely or isolated from th ose around you? Rarely 06/29/2024 Financial Resource Strain Answer Date R ecorded Do you have any trouble payi ng for your medications, or do you think you might in the future? No 06/29/2024 Does your family have troubl e paying for medicine? (Household - for ages 0-17 years) Not on file 06/29/2024 Transportation Needs Answer Date Record ed Do you have trouble getting a ride to medical visits or work? (Adult - for ages 18 years and over) Not on file 06/29/2024 Does your family have a hard time getting a ride to doctors visits? (Household - for ages 0-17 years) Not on file 06/29/2024 Has lack of transportation k ept you from medical appointments, meetings, work, or from getting things needed for daily living? Check all that apply. No 06/29/2024 Do you (or your family) have trouble finding or paying for a ride (transportation)? (Household - for ages 0-17 years) Not on file 06/29/2024 Housing Stability Answer Date Recorded Do you currently live in a s helter or have no steady place to sleep at night? No 06/29/2024 Do you think you are at risk of becoming homeless? (Adult - for ages 18 years and over) Not on file 06/29/2024 Does your family worry about paying for your home or becoming homeless? (Household - for ages 0-17 years) Not on file 0 06/29/2024 Are you homeless or worried that you might be in the future? No 06/29/2024 Are you (or your family) moreno eless or worried that you might be in the future? (Household - for ages 0-17 years) Not on file Food Insecurity Answer Date Recorded Do you need food for this week? No 06/29/2024 Are you able to get enough f ood for your family? (Household - for ages 0-17 years) Not on file 06/29/2024 Does your family need food t his week? (Household - for ages 0-17 years) Not on file 06/29/2024 Do you always have enough fo od for your family? (Household - for ages 0-17 years) Not on file 06/29/2024 Sex and Gender Information Value Date Recorded Sex Assigned at Male 02/08/2023 9:38 AM EDT Gender Identity Male 02/08/2023 9:38 AM EDT Sexual Orientation Straight 02/08/2023 9: 38 AM EDT Job Start Date Occupation Industry Not on file Not on file Not on file documented as of this encounter Nursing Notes * Xiomara Jack LPN - 07/03/2024 9:23 AM EDT Pre-op EKG completed as requested documented in this encounter Plan of Treatment Upcoming Encounters Date Type Department Care Team (Late st Contact Info) Description 08/31/2024 9:40 AM EDT Office Visit Family Practice [address] [place] [address] Louisa Quiroga DO [address] [place] [address] Scheduled Orders Name Type Priority Associated Diagnoses Orde r Schedule EKG EKG Routine ASCVD (arteriosclerotic cardiovascular disease) Expected: 07/03/2024 (Approximate), Expires: 08/03/2025 Health Maintenance Due Date Last Done Comments Hepatitis C Screening 1963 Diabetic Foot Exam 05/15/2012 05/15/2011, 06/02/2010 COVID-19 Vaccine ( season) 2024 09/20/2023, 08/21/2022, 09/05/2021, Additional history exists CKD PHOS USE SMARTSET 12972 06/15/2024 06/15/2023 Influenza Vaccine (FLU shot) (#1) 2024 08/09/2023, 09/02/2022, 09/03/2021, Additional history exists HbA1c 09/01/2024 03/02/2024, 05/23, 09/03/2022, Additional history exists Diabetic Eye Exam 11/10/2024 11/10/2023, , 08/22/2021, Additional history exists GFR 11/16/2024 05/17/2024, 04/23, 03/02/2024, Additional history exists Albumin/Creatinine Ratio 03/02/2025 024, 06/15/2023, 02/25/2022, Additional history exists TSH 03/02/2025 03/02/2024, 05/23, 06/15/2023 CKD HGB USE SMARTSET 62964 05/17/202505/17, 03/02/2024, 03/02/2024, Additional history exists Depression Monitoring 06/29/2025 06/29/2024, 024 DTaP,Tdap,and Td Vaccines (3 - Td or Tdap) 04/13/2032 04/13/2022, 04/09/2011, 11/22/1997 Pneumococcal Vaccine: 65+ Years Completed 07/29/2016, 10/11/2014, 11/22/2003 Zoster Vaccines Completed 10/05/2018, 03/22, 05/27/2011 HPV (Gardasil) Vaccine Aged Out No lo nger eligible based on patient's age to complete this topic Hepatitis B Vaccine Aged Out No longe r eligible based on patient's age to complete this topic MENINGOCOCCAL (MENACTRA/MENVEO) Aged Out No longer eligible based on patient's age to complete this topic documented as of this encounter Medical Devices Not on filedocumented as of this encounter Visit Diagnoses Diagnosis ASCVD (arteriosclerotic cardiovascular disease)- Primary Unspecified cardiovascular disease documented in this encounter Care Teams Event Specialist Relationship Specialty Start Date End Date Louisa Quiroga DO [address] [facility] [place] [address] PCP - General Family Medicine 07/03/24 documented as of this encounter
--- OUTSIDE RECORDS SUMMARY | 2024-07-04 10:38 | External Medical Summary | Continuity of Care Document ---
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 PAD (peripheral artery disease)(Discharge Diagnosis) - 06/30/24 Preop testing(Discharge Diagnosis) - 06/30/24 Discharge Disposition: Home or Self Care Attending Physician: MARCO Paz, Gege Cunningham Referring Physician: MD Angelica, Marquis Rodríguez Allergies, Adverse Reactions, Alerts Substance Criticality Severity Reaction Reaction Severity Status codeine Amoxicillin vomiting Active amoxicillin vomiting Active Augmentin vominting Active traMADol low blood sugar , stiff, dizzy Active Medications alendronate 35 mg oral tablet Start: 06/26/24 4:01:00 PM EDT Start Date: 06/26/24 Status: Ordered amLODIPine 2.5 mg oral tablet Start: 06/26/24 4:00:00 PM EDT Start Date: 06/26/24 Status: Ordered atorvastatin 80 mg oral tablet Start: 06/26/24 4:00:00 PM EDT Start Date: 06/26/24 Status: Ordered CoQ10 Start: 06/26/24 4:02:00 PM EDT Start Date: 06/26/24 Status: Ordered doxycycline hyclate 100 mg oral capsule Start: 06/26/24 4:00:00 PM EDT Start Date: 06/26/24 Status: Ordered Eliquis 5 mg oral tablet Start: 06/26/24 3:59:00 PM EDT Start Date: 06/26/24 Status: Ordered HumaLOG KwikPen 100 units/mL injectable solution Start: 06/26/24 4:01:00 PM EDT, 4 unit = Start Date: 06/26/24 Status: Ordered insulin glargine (Lantus) Start: 06/26/24 4:03:00 PM EDT Start Date: 06/26/24 Status: Ordered levothyroxine 50 mcg (0.05 mg) oral tablet Start: 06/26/24 4:01:00 PM EDT Start Date: 06/26/24 Status: Ordered Metoprolol Succinate ER 50 mg oral tablet, extended release Start: 06/26/24 4:01:00 PM EDT Start Date: 06/26/24 Status: Ordered Plavix 75 mg oral tablet Start: 06/26/24 4:02:00 PM EDT Start Date: 06/26/24 Status: Ordered timolol maleate 0.25% ophthalmic solution Start: 06/26/24 4:01:00 PM EDT Start Date: 06/26/24 Status: Ordered traMADol 50 mg oral tablet Start: 06/26/24 4:00:00 PM EDT Start Date: 06/26/24 Status: Ordered Mental Status 06/30/24 Barriers to Learning one year None evide nt Mandatory Health Literacy Documentation Yes Health Literacy Communication Barriers N ever Primary Language Maltese Problem List Condition Confirmation Course Effective Dates Status Health St atus Informant Ischemic necrosis of foot Confirmed Active PAD (peripheral artery disease) Confirmed Active Diagnosis Diagnosis Type Effective Dates Health Status Cl inical Service Informant Ischemic necrosis of foot Discharge Diagnosis 06/30/24 PAD (peripheral artery disease) Discharge Diagnosis 06/30/24 Preop testing Discharge Diagnosis 06/30/24 Non-Specified Vital Signs Most recent to oldest [Reference Range]: 1 Height 170.5 cm (06/30/24 11:01 AM) Patient Weight 65.2 kg (06/30/24 11:01 AM) Body Mass Index 22.43 kg/m2 (06/30/24 11:01 AM) Temperature [36.5-37.9 DegC] 36.7 DegC (06/30/24 11:01 AM) Heart Rate 69 bpm (06/30/24 11:01 AM) Blood Pressure 142/58mmHg (06/30/24 11:01 AM) Social History Social History Type Response Smoking Status Never smoked cigaret luana Sex Male Sex Representation Male (finding)
--- OUTSIDE RECORDS SUMMARY | 2024-07-04 10:38 | External Medical Summary | Summary of Care ---
Author Name Unknown Organization [facility] Address [address] [place] [address] Phone [phone] Care Team Providers Care Phlebotomist Name Role Phone Unavailable Primary Care Provider Unavailabl e Reason for Visit * Reason Comments Routine Exam Routine exam, he see s podiatry, having some increased pain along the outer aspect of right foot, he does known calluses and bunions there, next pod appt is 03/22. 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); Acquired hypothyroidism; Dyslipidemia, goal LDL below 70; Essential hypertension; Peripheral vascular disease (HCC); ASCVD (arteriosclerotic cardiovascular disease); Atherosclerosis of telida coronary artery of telida heart without angina pectoris; BPH; Horseshoe kidney; Osteopenia, unspecified location Allergies Active Allergy Reactions Criticality Noted Date [...] 11 12/04/2010 Active VIAGRA 50 MG PO TABSIndications:Imp otence of organic origin 1/4 TABLET NEEDED 5 [...] Active Atorvastatin Calcium 40 MG Oral Tablet (Lipitor)Indication s:Dyslipidemia, goal LDL below 70 Take 1 Tablet by mouth in the morning. 90 Tablet 3 06/15/2023 Active HumaLOG 100 UNIT/ML Subcutaneous Solution (insulin lispro (human))Indications :Type 1 diabetes mellitus with hemoglobin A1c goal of less than 7.0% ([facility]) Sliding scale 8-12 units prior to meals 4 Each 5 06/15/2023 Active Insulin Syringe-Needle U-100 31G X 1/4" 0.3 MLIndications:Diabe luana mellitus with background retinopathy (HCC) Use as directed. For use of insulin up to 4 times daily 400 Each 3 07/24/2023 Active Levothyroxine Sodium 50 MCG Oral Tablet (Levoxyl)Indication s:Acquired hypothyroidism TAKE 1 TABLET BY MOUTH DAILY FIRST THING IN THE MORNING 90 Tablet 1 01/20/2024 Active Metoprolol Succinate ER 50 MG Oral Tablet Extended Release 24 Hour (toPROL XL) TAKE 1 TABLET BY MOUTH IN THE MORNING 90 Tablet 1 02/08/2024 Active Vitamin D3 250 MCG (89254 UT) Oral Tablet (Cholecalciferol) Take 1 Tablet by mouth every evening. Active Timolol Maleate 0.25 % Ophthalmic Solution (Timoptic) Instill 1 Drop into both eyes in the morning and 1 Drop before bedtime. 07/07/2023 Active Alendronate Sodium 35 MG Oral Tablet (Fosamax)Indication s:Osteoporosis, unspecified osteoporosis type, unspecified pathological fracture presence TAKE 1 TABLET BY MOUTH WEEKLY WITH 8 OZ OF PLAIN WATER 30 MINUTES BEFORE FIRST FOOD, DRINK OR MEDS. STAY UPRIGHT FOR 30 MINS 12 Tablet 3 08/05/2023 4 Discontinue d(Refill) Pen [place] 31G X 5 MMIndications:Type 1 diabetes mellitus with hemoglobin A1c goal of less than 7.0% ([facility]) Use as directed. 400 Each 3 10/25/2023 4 Discontinue d(Refill) Aspirin 81 MG Oral Tablet Delayed Release Take 1 Tablet by mouth in the morning. 4 Discontinue d(Medicatio n List Clean Up) documented as of this encounter (statuses as [...] mRNA, LNP-s, No Pre serve, 2-Dose Series ([employer]) 09/05/2021,01/30/2021,01/03/2021 DTaP Dipth/Tet/Acell Pertussis ([employer]), Peds 04/13/2022 [...] Date Smoking Tobacco: Never Smokeless Tobacco: Never Tobacco Cessation:Counseling Given: No Alcohol Use Standard Drinks/Week Comments Yes 5.8 (1 standard drink = 0.6 oz p ure alcohol) PHQ-2 Answer Date Recorded PHQ Adult Total Score 0 06/15/2023 Hunger Vital Sign Answer Date Recorded Within the past 12 months, y ou worried that your food would run out before you got the money to buy more. Never true 06/11/20 23 Within the past 12 months, t he food you bought just didn't last and you didn't have money to get more. Never true 06/11/2023 Childcare Answer Date Recorded Do you feel overwhelmed with taking care of a child, family member or friend? No 06/11/2023 Does your family need help f inding childcare? (Household - for ages 0-17 years) Not on file 06/11/2023 Clothing Answer Date Recorded Have you been unable to get clothing when it was really needed? No 06/11/2023 Is your family able to get c lothes or diapers when needed? (Household - for ages 0-17 years) Not on file 06/11/2023 Personal Safety Answer Date Recorded Do you feel unsafe or have concerns for your saf ety? No 06/11/2023 Do you have concerns for you r family's safety? (Household - for ages 0-17 years) Not on file 06/11/2023 Utilities Answer Date Recorded Do you have trouble paying y our heating, water, or electric bill? No 06/11/2023 Is your family able to pay t he heat, water, or electric bill? (Household - for ages 0-17 years) Not on file 06/11/2023 Does your family have access to good internet? (Household - for ages 0-17 years) Not on file 06/11/2023 Employment Status Answer Date Recorded Are you unemployed or without regular income? No 06/11/2023 Does the household have a re gular source of income? (Household - for ages 0-17 years) Not on file 06/11/2023 Social Connections Answer Date Recorded How often do you feel lonely or isolated from th ose around you? Never 06/11/2023 Financial Resource Strain Answer Date R ecorded Do you have any trouble payi ng for your medications, or do you think you might in the future? No 06/11/2023 Does your family have troubl e paying for medicine? (Household - for ages 0-17 years) Not on file 06/11/2023 Transportation Needs Answer Date Record ed READ ONLY Do you have troubl e getting a ride to medical visits or work? Never True 06/11/2023 Does your family have a hard time getting a ride to doctors visits? (Household - for ages 0-17 years) Not on file 06/11/2023 Has lack of transportation k ept you from medical appointments, meetings, work, or from getting things needed for daily living? Check all that apply. (Adult - for ages 18 years and over) Not on file 06/11/2023 Do you (or your family) have trouble finding or paying for a ride (transportation)? (Household - for ages 0-17 years) Not on file 06/11/2023 Housing Stability Answer Date Recorded Do you currently live in a s helter or have no steady place to sleep at night? No 06/11/2023 READ ONLY Do you think you a re at risk of becoming homeless? No 06/11/2023 Does your family worry about paying for your home or becoming homeless? (Household - for ages 0-17 years) Not on file 0 06/11/2023 Are you homeless or worried that you might be in the future? (Adult - for ages 18 years and over) Not on file Are you (or your family) moreno eless or worried that you might be in the future? (Household - for ages 0-17 years) Not on file Food Insecurity Answer Date Recorded Do you need food for this week? No 06/11/2023 Are you able to get enough f ood for your family? (Household - for ages 0-17 years) Not on file 06/11/2023 Does your family need food t his week? (Household - for ages 0-17 years) Not on file 06/11/2023 Do you always have enough fo od for your family? (Household - for ages 0-17 years) Not on file 06/11/2023 Sex and Gender Information Value Date Recorded Sex Assigned at Male 02/08/2023 9:38 AM EDT Gender Identity Male 02/08/2023 9:38 AM EDT Sexual Orientation Straight 02/08/2023 9: 38 AM EDT Job Start Date Occupation Industry Not on file Not on file Not on file documented as of this encounter Last Filed Vital Signs Vital Sign Reading Time Taken Comments Blood Pressure 158/70 03/02/2024 9:52 AM EDT Pulse 60 03/02/2024 9:52 AM EDT Temperature 36.7 C (98.1 F) 03/02/2024 9:52 AM ED T Respiratory Rate 20 03/02/2024 9:52 AM EDT Oxygen Saturation 98% 03/02/2024 9:52 AM EDT Inhaled Oxygen Concentration - - Weight 69.1 kg (152 lb 6.4 oz) 03/02/2024 9:52 A M EDT Height 170.2 cm (5' 7") 03/02/2024 9:52 AM EDT Body Mass Index 23.87 03/02/2024 9:52 AM EDT documented in this encounter Progress Notes * Louisa Quiroga, DO - 03/02/2024 10:03 AM EDT Subjective Tre Gonzalez is a 78 year old male. Chief Complaint Patient presents with Routine Exam Routine exam, he sees podiatry, having some increased pain along the outer aspect of right foot, hedoes known calluses and bunions there, next pod appt is 03/22. HPI: 70-year-old male here today for routine visit Chart reviewed Overall patient is doing well He follows with Dr. Santiago his union organizer on a regular basis, does have an appointment coming up within the next week or so He did have some issues with a red sore area on his toe, no ulceration or skin breakdown, was seen by his refinery operator alkylation and given Bactroban and ketoconazole cream which he is using His blood pressure is well controlled with current medications Diabetes has been well controlled with current meds, uses his sensor on a regular basis He follows with vascular at [facility] on a regular basis He follows with Oncology at [facility] for his underlying anemia He is due for labs today PMH: Patient Active Problem List Diagnosis Code CAD-S/PCABGX4 I25.10 Dyslipidemia, goal LDL below 70 E78.5 ASCVD (arteriosclerotic cardiovascular disease) I25.10 Diabetes mellitus with background retinopathy (HCC) E11.3299 E.D. 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 BPH N40.0 Carotid stenosis, asymptomatic, bilateral I65.23 CKD stage 3 due to type 1 diabetes mellitus ([facility]) E10.22, N18.30 Diabetic retinopathy associated with type 1 diabetes mellitus ([facility]) E10.319 Essential hypertension I10 Glaucoma H40.9 Hypothyroidism E03.9 Nonrheumatic aortic valve stenosis I35.0 Peripheral vascular disease ([facility]) I73.9 Posterior vitreous detachment of left eye H43.812 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 13 units in the morning) 3 Vial 3 Multivitamin Adult Oral Tablet Take 1 Capsule by mouth in the morning. Cetirizine HCl 10 MG Oral Tablet Chewable Take 1 Tablet by mouth. CoQ-10 100 MG Oral Capsule Take by mouth. Atorvastatin Calcium 40 MG Oral Tablet (Lipitor) Take 1 Tablet by mouth in the morning. 90 Tablet 3 HumaLOG 100 UNIT/ML Subcutaneous Solution (insulin lispro (human)) Sliding scale 8-12 units prior to meals 4 Each 5 Insulin Syringe-Needle U-100 31G X 1/4" 0.3 ML Use as directed. For use of insulin up to 4 times daily 400 Each 3 Alendronate Sodium 35 MG Oral Tablet (Fosamax) TAKE 1 TABLET BY MOUTH WEEKLY WITH 8 OZ OF PLAIN WATER 30 MINUTES BEFORE FIRST FOOD, DRINK OR MEDS. STAY UPRIGHT FOR 30 MINS 12 Tablet 3 [place] 31G X 5 MM Use as directed. 400 Each 3 Levothyroxine Sodium 50 MCG Oral Tablet (Levoxyl) TAKE 1 TABLET BY MOUTH DAILY FIRST THING IN THE MORNING 90 Tablet 1 Metoprolol Succinate ER 50 MG Oral Tablet Extended Release 24 Hour (toPROL XL) TAKE 1 TABLET BY MOUTH IN THE MORNING 90 Tablet 1 Aspirin 81 MG Oral Tablet Delayed Release Take 1 Tablet by mouth in the morning. Vitamin D3 250 MCG (23934 UT) Oral Tablet (Cholecalciferol) Take 1 Tablet by mouth every evening. Timolol Maleate 0.25 % Ophthalmic Solution (Timoptic) Instill 1 Drop into both eyes in the morning and 1 Drop before bedtime. No current facility-administered medications for this visit. Past Medical History: Diagnosis Date GLAUCOMA 02/28/2010 Anemia 06/02/2010 ASCVD (arteriosclerotic cardiovascular disease) 02/28/2010 CAD-S/PCABGX4 02/28/2010 CATARACTS 02/28/2010 DIABETIC RETINOPATHY 02/28/2010 DM type 1, goal A1c below 7 02/28/2010 Dyslipidemia, goal LDL below 70 02/28/2010 E.D. 02/28/2010 Horseshoe kidney 07/29/2010 HYPERKALEMIA 02/28/2010 OSTEOARTHRITIS 02/28/2010 RENAL INSUFFICIENCY 07/08/2010 Past Surgical History: Procedure Laterality Date CABG, ARTERY-VEIN, FOUR COLONOSCOPY 06/29/2006 INT HEMS LASER TRABECULOPLASTY Bilateral LEFT EYE DE AMPUTATION TOE METATARSOPHALANGEAL JOINT Right right foot Great toe Review of patient's allergies indicates: Allergen Reactions Amoxicillin Nausea/vomiting Pollen Sulfamethoxazole-Trimethoprim Nausea/vomiting Morphine And Related Nausea/vomiting Robitussin A-C [Guaifenesin-Codeine] Nausea/vomiting Family History Problem Relation Age of Onset Arthritis Mother Family Status Relation Status Mo at age 94 SEPSIS Fa at age 50 GANGRENE Son Alive Sis Alive Social History Socioeconomic History Marital status: Spouse name: Not on file Number of children: 1 Years of education: Not on file Highest education level: Not on file Occupational History Not on file Tobacco Use Smoking status: Never Smokeless tobacco: Never Vaping Use Vaping Use: Never used Substance and Sexual Activity Alcohol use: Yes Alcohol/week: 5.8 standard drinks of alcohol Types: 7 5 oz of wine per week Drug use: No Sexual activity: Yes Partners: Female Other Topics Concern Not on file Social History Narrative Not on file Social Determinants of Health Financial Resource Strain: Not on file Food Insecurity: No Food Insecurity (06/11/2023) Hunger Vital Sign Worried About Running Out of Food in the Last Year: Never true Ran Out of Food in the Last Year: Never true Transportation Needs: Not on file Physical Activity: Not on file Stress: Not on file Social Connections: Not on file Intimate Partner Violence: Not on file Housing Stability: Not on file Objective BP 158/70 | Pulse 60 | Temp 36.7 C (98.1 F) (Temporal Artery) | Resp 20 | Ht 1.702 m (5' 7") | Wt 69.1 kg (152 lb 6.4 oz) | SpO2 98% | BMI 23.87 kg/m | BSA 1.81 m Physical Exam Vitals and nursing note reviewed. Constitutional: General: He is not in acute distress. Appearance: Normal appearance. He is well-developed. He is not ill-appearing or diaphoretic. HENT: Head: Normocephalic and atraumatic. Right Ear: External ear normal. Left Ear: External ear normal. Eyes: General: No scleral icterus. Right eye: No discharge. Left eye: No discharge. Neck: Thyroid: No thyromegaly. Cardiovascular: Rate and Rhythm: Normal rate and regular rhythm. Heart sounds: Normal heart sounds. No murmur heard. Pulmonary: Effort: Pulmonary effort is normal. No respiratory distress. Breath sounds: Normal breath sounds. No wheezing, rhonchi or rales. Abdominal: General: Bowel sounds are normal. There is no distension. Palpations: Abdomen is soft. Tenderness: There is no abdominal tenderness. Musculoskeletal: General: No deformity. Cervical back: Neck supple. Right lower leg: No edema. Left lower leg: No edema. Lymphadenopathy: Cervical: No cervical adenopathy. Skin: General: Skin is warm and dry. Neurological: General: No focal deficit present. Mental Status: He is alert and oriented to person, place, and time. Gait: Gait normal. Psychiatric: Mood and Affect: Mood normal. Behavior: Behavior normal. Thought Content: Thought content normal. Judgment: Judgment normal. 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) (Primary) - HEMOGLOBIN A1C; Future; Expected date: 03/02/2024 - COMPREHENSIVE METABOLIC PANEL; Future; Expected date: 03/02/2024 - LIPID PANEL WITH DIRECT LDL IF TG IS HIGH; Future; Expected date: 03/02/2024 - CBC WITH WBC DIFFERENTIAL; Future; Expected date: 03/02/2024 - ALBUMIN / CREATININE RATIO, URINE; Future; Expected date: 03/02/2024 Type 1 diabetes mellitus with hyperglycemia (HCC) - COMPREHENSIVE METABOLIC PANEL; Future; Expected date: 03/02/2024 - LIPID PANEL WITH DIRECT LDL IF TG IS HIGH; Future; Expected date: 03/02/2024 - CBC WITH WBC DIFFERENTIAL; Future; Expected date: 03/02/2024 - ALBUMIN / CREATININE RATIO, URINE; Future; Expected date: 03/02/2024 Acquired hypothyroidism - COMPREHENSIVE METABOLIC PANEL; Future; Expected date: 03/02/2024 - LIPID PANEL WITH DIRECT LDL IF TG IS HIGH; Future; Expected date: 03/02/2024 - CBC WITH WBC DIFFERENTIAL; Future; Expected date: 03/02/2024 - ALBUMIN / CREATININE RATIO, URINE; Future; Expected date: 03/02/2024 - TSH WITH FREE T4 IF INDICATED; Future; Expected date: 03/02/2024 Dyslipidemia, goal LDL below 70 - COMPREHENSIVE METABOLIC PANEL; Future; Expected date: 03/02/2024 - LIPID PANEL WITH DIRECT LDL IF TG IS HIGH; Future; Expected date: 03/02/2024 - CBC WITH WBC DIFFERENTIAL; Future; Expected date: 03/02/2024 - ALBUMIN / CREATININE RATIO, URINE; Future; Expected date: 03/02/2024 Essential hypertension - COMPREHENSIVE METABOLIC PANEL; Future; Expected date: 03/02/2024 - LIPID PANEL WITH DIRECT LDL IF TG IS HIGH; Future; Expected date: 03/02/2024 - CBC WITH WBC DIFFERENTIAL; Future; Expected date: 03/02/2024 - ALBUMIN / CREATININE RATIO, URINE; Future; Expected date: 03/02/2024 Peripheral vascular disease (HCC) 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 | For: schedule with dr munguia for routine care , Labs today | Check-out note: Need copy of last colonoscopy done at [facility] Louisa Quiroga, DO * Sonam David LPN - 03/02/2024 9:47 AM EDT Hemoglobin a1c ordered today. Provider aware. Sonam David LPN documented in this encounter Nursing Notes * Sonam David LPN - 03/02/2024 9:46 AM EDT Chief Complaint Patient presents with Routine Exam Routine exam, he sees podiatry, having some increased pain along the outer aspect of right foot, hedoes known calluses and bunions there, next pod appt is 03/22. documented in this encounter Plan of Treatment Upcoming Encounters Date Type Department Care Team (Late st Contact Info) Description 07/03/2024 9:00 AM EDT Nurse Only Ancillary [address], [place] [address] [place] [address] [place], Nurse [facility] [address] [place] [address] 08/31/2024 9:40 AM EDT Office Visit [facility] [address] [address] [place] [address] Louisa Quiroga DO [address] [place] [address] Health Maintenance Due Date Last Done Comments Hepatitis C Screening 1963 Diabetic Foot Exam 05/15/2012 05/15/2011, 06/02/2010 COVID-19 Vaccine ( season) 2024 09/20/2023, 08/21/2022, 09/05/2021, Additional history exists CKD PHOS USE SMARTSET 52030 06/15/2024 06/15/2023 Influenza Vaccine (FLU shot) (#1) 2024 08/09/2023, 09/02/2022, 09/03/2021, Additional history exists HbA1c 09/01/2024 03/02/2024, 05/23, 09/03/2022, Additional history exists Diabetic Eye Exam 11/10/2024 11/10/2023, , 08/22/2021, Additional history exists GFR 11/16/2024 05/17/2024, 04/23, 03/02/2024, Additional history exists Albumin/Creatinine Ratio 03/02/2025 024, 06/15/2023, 02/25/2022, Additional history exists TSH 03/02/2025 03/02/2024, 05/23, 06/15/2023 CKD HGB USE SMARTSET 51189 05/17/202505/17, 03/02/2024, 03/02/2024, Additional history exists Depression [...] Not on filedocumented as of this encounter Results * TSH WITH FREE T4 IF INDICATED (03/02/2024 10:30 AM EDT) TSH 2.11 0.27 - 4.20 uIU/mL 03/03/2024 6:56 AM EDT LABORATORY [facility] Blood Venous blood specimen / Unknown Venipuncture / Unknown 03/02/2024 10:30 AM EDT 03/02/2024 10:30 AM EDT Louisa Burleson Junaid DO LAB BLOOD ORDERABL ES Performing Organization Address [facility] de Phone Number LABORATORY [address] [address] * (ABNORMAL) ALBUMIN / CREATININE RATIO, URINE (03/02/2024 10:30 AM EDT) Albumin, Random Urine 4.94 mg/dL 03/02/2024 11:26 PM EDT LABORATORY [facility] Creatinine, Random Urine 38 mg/dL 03/02/2024 11:26 PM EDT LABORATORY [facility] Albumin / Creatinine Ratio, Urine 130(H) <30 mg/g Creat 03/02/2024 11:26 PM EDT LABORATORY [facility] Urine Urine specimen obtained by clean catch procedure / Unknown Non-blood Collection / Unknown 03/02/2024 10:30 AM EDT 03/02/2024 10:30 AM EDT Narrative LABORATORY [facility] - 03/02/2024 11:26 PM EDT Normal: <30 mg/g creatinine High: 30-300 mg/g creatinine Very High: >300 mg/g creatinine Nephrotic: >2200 mg/g creatinine Louisa Sarah Beth Quiroga DO LAB URINE ORDERABL ES Performing Organization Address [facility] Co de Phone Number LABORATORY [address] [address] * LIPID PANEL WITH DIRECT LDL IF TG IS HIGH (03/02/2024 10:30 AM EDT) Triglycerides 78 <=174 mg/dL 03/03/2024 4:50 AM EDT LABORATORY [facility] Comment: Triglyceride Reference Ranges (mg/dL): <150 Acceptable 150-174 Borderline high 175-499 High >=500 Very high Cholesterol 138 <200 mg/dL 03/03/2024 4:50 AM EDT LABORATORY [facility] Comment: Total Cholesterol Reference Ranges (mg/dL): <200 Desirable 200-239 Borderline high >=240 High HDL Cholesterol 64 >39 mg/dL 4:50 AM EDT LABORATORY [facility] Comment: HDL Cholesterol Reference Ranges (mg/dL): >=60 High (Desirable) <50 Low (Undesirable) For Females <40 Low (Undesirable) For Males Non-HDL Cholesterol 74 <=159 mg/dL 03/03/2024 4:50 AM EDT LABORATORY [facility] Comment: Non-HDL Cholesterol Reference Range (mg/dL): <100 Target level for high risk ASCVD patient <130 Optimal for general population 130-159 Near optimal for general population 160-189 Borderline High 190-219 High >=220 Very High LDL Cholesterol 58 <=129 mg/dL 03/03/2024 4:50 AM EDT LABORATORY [facility] Comment: LDL Cholesterol Reference Ranges (mg/dL): <70 Target level for high risk ASCVD patient <100 Optimal for general population 100-129 Near optimal for general population 130-159 Borderline high 160-189 High >=190 Very high Blood Venous blood specimen / Unknown Venipuncture / Unknown 03/02/2024 10:30 AM EDT 03/02/2024 10:30 AM EDT Louisa Quiroga DO LAB BLOOD ORDERABL ES LABORATORY [facility] [address] [place] [address] * (ABNORMAL) COMPREHENSIVE METABOLIC PANEL (03/02/2024 10:30 AM EDT) BUN 22(H) 6 - 20 mg/dL 03/03/2024 4:50 AM EDT LABORATORY [facility] Creatinine 1.1 0.6 - 1.2 mg/dL 03/03/2024 4:50 AM EDT LABORATORY [facility] Estimated Glomerular Filtration Rate 69 >=60 mL/min 03/03/2024 4:50 AM EDT LABORATORY [facility] Comment:eGFR is calculated b ased on the CKD-EPI 2020 equation Sodium 131(L) 135 - 146 mmol/L 03/03/2024 4:50 AM EDT LABORATORY [facility] Potassium 5.1 3.5 - 5.1 mmol/L 03/03/2024 4:50 AM EDT LABORATORY C Chloride 96(L) 98 - 107 mmol/L 03/03/2024 4:50 AM EDT LAB[facility]ATORY [facility] CO2 22 22 - 32 mmol/L 03/03/2024 4:50 AM EDT LABORATORY C Anion Gap 13 7 - 15 mmol/L 03/03/2024 4:50 AM EDT LABORATORY C Glucose 151(H) 70 - 120 mg/dL 03/03/2024 4:50 AM EDT LABORATORY C Albumin 4.6 3.8 - 5.0 g/dL 03/03/2024 4:50 AM EDT LABORATORY C AST 29 10 - 50 U/L 03/03/2024 4:50 AM EDT LABORATORY C Alkaline Phosphatase 53 35 - 130 U/L 03/03/2024 4:50 AM EDT LABORATORY [facility] Bilirubin, Total 0.4 <=1.2 mg/dL 03/03/2024 4:50 AM EDT LABORATORY C Calcium 9.3 8.4 - 10.2 mg/dL 03/03/2024 4:50 AM EDT LABORATORY C Protein 6.2 6.0 - 8.3 g/dL 03/03/2024 4:50 AM EDT LABORATORY C ALT 31 10 - 50 U/L 03/03/2024 4:50 AM EDT LAB[facility] [place] Venous blood specimen / Unknown Venipuncture / Unknown 03/02/2024 10:30 AM EDT 03/02/2024 10:30 AM EDT Louisa Quiroga DO LAB BLOOD ORDERABL ES LAB[facility]AT[facility] [address] [place] [address] * (ABNORMAL) HEMOGLOBIN A1C (03/02/2024 10:30 AM EDT) Hemoglobin A1C 7.3(H) 4.0 - 5.6 % 03/03/2024 4:38 AM EDT LABORATORY C Comment:The use of HbA1c to monitor glycemic status is based on normal hemoglobin and HbA composition. This test should not be used in patients with abnormal hemoglobin that affects the half life of the red blood cell or the in vivo glycation rates. Estimated Average Glucose 163(H) <126 mg/dL 03/03/2024 4:38 AM EDT LABORATORY [facility] Blood Venous blood specimen / Unknown Venipuncture / Unknown 03/02/2024 10:30 AM EDT 03/02/2024 10:30 AM EDT Louisa Quiroga DO LAB BLOOD ORDERABL ES LAB[facility]AT[facility] [address] [place] [address] documented in this encounter Visit Diagnoses Diagnosis Type 1 diabetes mellitus with hyperglycemia (HCC)- Primary Type I (juvenile type) diabetes mellitus without mention of complication, not stated as uncontrolled CKD stage 3 due to type 1 diabetes mellitus (HCC) Acquired hypothyroidism Unspecified hypothyroidism Dyslipidemia, goal LDL below 70 Other and unspecified hyperlipidemia Essential hypertension Unspecified essential hypertension Peripheral vascular disease (HCC) Peripheral vascular disease, unspecified ASCVD (arteriosclerotic cardiovascular disease) Unspecified cardiovascular disease Atherosclerosis of telida coronary artery of telida heart without angina pectoris BPH Hypertrophy of prostate without urinary obstruction and other lower urinary tract symptoms (LUTS) 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
[2024-07-04] MEDS ORDERED: fentaNYL citrate PF 100 MCG/2 ML VIAL ONE (10:40)
--- NOTE | 2024-07-04 11:06 | History & Physical Bridge Note ---
Date of Service July 04, 2024 History & Physical Bridge Note I have examined the patient, reviewed the History & Physical and in the interval since the performance of the History & Physical I have noted the following changes of clinical significance: no changes noted
[2024-07-04] MEDS ORDERED: ROPIVACAINE 0.5% 5 MG/ML 30 ML VIAL ONE (11:24)
[2024-07-04] MEDS ORDERED: HYDROmorphone INJ 1 MG/ML SYRINGE IV PRN (11:46)
[2024-07-04] MEDS ORDERED: ePHEDrine sulfate 50 MG/ML AMP IV PRN (11:46)
[2024-07-04] MEDS ORDERED: ATROPINE SULFATE 0.1 MG/ML 10ML SYR IV PRN (11:46)
[2024-07-04] MEDS ORDERED: ONDANSETRON INJ 2 MG/ML 2 ML VIAL IV PRN ×2 (11:46→16:16)
[2024-07-04] MEDS: TRANEXAMIC ACID / 0.7% NACL 1000MG/100ML BAG IV ONE (12:25)
[2024-07-04] MEDS: ceFAZolin 2000MG 2,000 MG/15 ML SYR IV SCH (12:55)
[2024-07-04] MEDS ORDERED: PROPOFOL IV EMULSION 10 MG/ML 20 ML VIAL IV ONE (13:01)
[2024-07-04] MEDS ORDERED: PHENYLEPHRINE 100MCG/ML 10ML SYR IV ONE (13:02)
[2024-07-04] MEDS ORDERED: PHENYLEPHRINE HCL 10 MG/ML VIAL ONE (13:02)
[2024-07-04] MEDS ORDERED: ePHEDrine sulfate 50 MG/5 ML SYR ONE (13:02)
--- NOTE | 2024-07-04 14:46 | Operative Report ---
Post Operative Report Pre & Post Diagnosis Operation Date: 07/04/24 10:10 Pre-Op Diagnosis: Peripheral Artery Disease, Ischemic Necrosis of Foot Post-Op Diagnosis: Peripheral Artery Disease, Ischemic Necrosis of Foot I identified the patient and participated in the time-out.: Yes Procedure Operation Date: 07/04/24 10:10 Actual Procedures p Left Below Knee Amputation(Left) - Marquis Dominguez MD Surgeon Marquis Dominguez MD Loan Examiner Gege Paz no resident or fellow available Estimated Blood Loss 100 Findings Consistent with Post-Op Diagnosis Specimens Amputated right lower leg Drains Hemovac x 1 Anesthesia Type General Regional Complications none Disposition Accompanied Patient To Recovery: No Disposition: Recovery Room Indications Tre is 79 years old. He has longstanding diabetes. He has peripheral vascular disease. He has an ischemic necrosis of multiple toes on his left foot. He has been evaluated by vascular surgery. He requires ablative surgery and the best level is thought to be a below-knee amputation based upon his circulation studies. Description of Procedure Informed consent. Patient identified. He identified the procedure site as the left leg. I marked with my initials. A preoperative surgical timeout was performed. A preop dose of IV antibiotics was given. TXA given. Taken to the operating room positioned supine on the operating room table. A tourniquet applied to the left thigh. Leg was scrubbed with Betadine and then prepped with Betadine paint. DVT prophylaxis intraoperatively with foot pumps. Postop early mobility and mechanical devices. He will also resume his Eliquis which was stopped 3 days before surgery. There was ischemic necrosis of the left foot. The big toe second toe and the fifth toe with involvement of the fifth metatarsophalangeal joint. There was 1+ edema of the leg and some erythema of the foot. The lower leg area was otherwise unremarkable. The limb was exsanguinated with the Esmarch beginning at the ankle and proceeding proximally. A 12.5 cm residual limb was marked out using fluoroscopic guidance. This was measured from the medial joint line down to the tibia. The skin incision was made 1 cm distal to this. The anterior-posterior width of the leg at this location was 10 cm. The proximal incision curved slightly posterior to the midline and then a posterior flap was fashioned that was 15 cm in length. The skin was incised followed by electrocautery down to the level of the fascia. The surgery began by dividing the anterior compartment muscles. The anterior neurovascular bundle was doubly ligated proximally with 0 silk ties and single ligation distally and then they were amputated. Likewise the peroneal structures were ligated. The lateral compartment muscles were also divided. I then opened up the interosseous membrane and identified the posterior neurovascular structures which were ligated in a similar fashion. The posterior compartment muscles and the deep compartment were divided using electrocautery. The muscles were beefy red and healthy in appearance and had some bleeding. The level of resection of the tibia was rechecked and the cut was made 12-1/2 cm distal to the medial joint line. An anterior bevel cut was made. The fibula was transected about 1 and half centimeters proximal to the tibia. I then identified the interval between the superficial and deep posterior compartments. This interval was exploited to complete the amputation and form a posterior flap. The amputated limb was sent for specimen. The tourniquet was let down and none of the ligated vessels demonstrated any significant bleeding and the sutures were cut. The posterior flap was trimmed to eliminate bulkiness. Stick ties were utilized to control some superficial bleeders on the posterior flap. Hemovac drain was inserted. The muscular fascia of the posterior flap was reapproximated to the anterior compartment fascia level anteriorly and secured with #1 Vicryl's. There was slight skin length mismatch which was adjusted as necessary. 2-0 Vicryl for subcutaneous layer. Skin closed with 2-0 nylon horizontal mattress stitches. Leg was cleaned with wet and dry sponges saw sterile dressing was applied Xeroform 4 x 4's ABDs. All bony prominences were inspected and the patient was placed into a posterior splint coming up over the stump and anterior need to hold the leg straight. The Hemovac was connected. Patient awakened from anesthesia without difficulty taken to the recovery room in stable condition. There were no complications. Counts were correct. The resected limb was sent for specimen. At the conclusion the operation spoke with patient's family informed of my findings. Medicine consult. Resume blood thinner in the morning. PT and OT. Edema control. There was swelling of the limb. I attest to the content of the Intraoperative Record and any orders documented therein. Any exceptions are noted below.
--- NOTE | 2024-07-04 14:57 | Operative Report ---
Post Operative Report Pre & Post Diagnosis Operation Date: 07/04/24 10:10 Pre-Op Diagnosis: Peripheral Artery Disease, Ischemic Necrosis of Foot Post-Op Diagnosis: Peripheral Artery Disease, Ischemic Necrosis of Foot I identified the patient and participated in the time-out.: Yes Procedure Operation Date: 07/04/24 10:10 Actual Procedures p Left Below Knee Amputation(Left) - Marquis Dominguez MD Surgeon Marquis Dominguez M.D. Building Rental Manager Gege Paz no resident or fellow available Estimated Blood Loss 100 Findings Consistent with Post-Op Diagnosis Gangrene left foot Specimens Left lower leg Anesthesia Type General Regional Description of Procedure Patient was taken to the operating room, placed under general anesthesia. Time out performed, prepped and draped in routine sterile fashion. Patient was given 2 gm IV Ancef for surgical prophylaxis. He was given 1gm IV TXA preoperatively. I was present during the entire case, please see Dr. Dominguez's operative report for further details regarding today's procedure. Patient was awakened and taken to the recovery room in stable condition. I attest to the content of the Intraoperative Record and any orders documented therein. Any exceptions are noted below.
--- NOTE | 2024-07-04 15:01 | Fluoroscopy Report ---
FL knee LT 1 or 2V CLINICAL HISTORY: LEFT BELOW KNEE AMPUTATION COMPARISON STUDY: None. FLUOROSCOPY TIME: 6 seconds FLUOROSCOPY IMAGES: Ka,r: 0.1 mGy FINDINGS: Postoperative changes consistent with a left below the knee amputation. Surgical drain is i n place. IMPRESSION: Fluoroscopic assistance as above. ACT 112: Negative or not required by law. Electronically signed by: Bang Tran M.D. 07/04/2024 2:59 PM
--- NOTE | 2024-07-04 15:25 | Anesthesiology Progress Note ---
Date of Service July 04, 2024 Anesthesia Post Procedure Vital Signs Vital Signs: Temp Pulse Resp BP Pulse Ox O2 Del Method 07/04/24 09:16 36.9 C 80 18 168/88 H 100 Room Air Transfer of Care Handoff Completed per policy Notes Mental Status: alert / awake / arousable Patient Amnestic to Procedure: Yes Nausea / Vomiting: adequately controlled Pain: adequately controlled Airway Patency, RR, SpO2: stable & adequate BP & HR: stable & adequate Hydration State: stable & adequate Anesthetic Complications: no major complications apparent and Pt Satisfied with anesthetic care
[2024-07-04] MEDS ORDERED: MAGNESIUM HYDROXIDE SUSP 30 ML UDC PO PRN (16:16)
[2024-07-04] MEDS ORDERED: METOCLOPRAMIDE HCL INJ 5 MG/ML 2 ML VIAL IV PRN (16:16)
[2024-07-04] MEDS ORDERED: HYDROmorphone INJ 0.5 MG/0.5 ML SYR IV PRN (16:16)
[2024-07-04] MEDS ORDERED: traMADol HCL 50 MG TABLET PO PRN (16:16)
[2024-07-04] MEDS ORDERED: PHARMACY GLYCEMIC MGMT CONSULT PRN ×2 (16:16→19:08)
[2024-07-04] MEDS ORDERED: NALOXONE HCL 0.4 MG/1 ML VIAL/CARP IV PRN (16:16)
[2024-07-04] MEDS ORDERED: TAMSULOSIN HCL 0.4 MG CAP PO PRN (16:16)
[2024-07-04 16:47] LABS: Hematocrit (blood only) 25.6 % (42.0-52.0); Hemoglobin 8.9 g/dl (14.0-18.0)
[2024-07-04] MEDS: SODIUM CHLORIDE 0.9% 1,000 ML IV SCH (16:59)
[2024-07-04] MEDS: ATORVASTATIN 40 MG TAB PO SCH (17:00)
[2024-07-04] MEDS: INSULIN ASPART PER UNIT CHARGE SC SCH (17:28)
--- NOTE | 2024-07-04 17:35 | Orthopedic Progress Note ---
Date of Service July 04, 2024 Assessment & Plan (1) PAD (peripheral artery disease): Plan: Stable postoperatively. PT and OT in the morning. Postop antibiotics. Anticoagulation starting tomorrow. (2) Diabetic foot ulcer: Admission and Anticipated Discharge Date Admission Date: July 04, 2024 Subjective No problems reported. Results of surgery discussed. Physical Exam Physical Exam: Dressing is clean dry and intact. Hemovac in place.H&H 9 and 27. Results & Data Vital Signs (Past 12 Hours) Vital Signs Temp Pulse Pulse Resp BP Pulse Ox O2 Del Method 07/04/24 16:57 85 18 130/68 100 Room Air 07/04/24 16:32 78 18 138/70 100 Room Air 07/04/24 16:00 36.5 C 78 16 129/66 100 Room Air 07/04/24 15:45 70 17 127/58 L 100 Room Air 07/04/24 15:35 69 12 128/57 L 100 Room Air 07/04/24 15:25 36.4 C L 71 18 130/58 L 100 Room Air 07/04/24 15:15 74 21 131/60 100 Room Air 07/04/24 15:05 69 13 133/61 100 Oxymask 07/04/24 14:58 36.4 C L 79 15 141/64 H 100 Oxymask 07/04/24 09:16 36.9 C 80 18 168/88 H 100 Room Air O2 Flow Rate 07/04/24 16:57 07/04/24 16:32 07/04/24 16:00 07/04/24 15:45 07/04/24 15:35 07/04/24 15:25 07/04/24 15:15 07/04/24 15:05 5 07/04/24 14:58 5 07/04/24 09:16
--- NOTE | 2024-07-04 19:53 | Consultation ---
Date of Consultation July 04, 2024 Assessment & Plan (1) Post-operative state: (2) S/P BKA (below knee amputation) unilateral: (3) CAD (coronary atherosclerotic disease): (4) PAD (peripheral artery disease): (5) Type 1 diabetes mellitus with complications: 79-year-old male with history of coronary disease/CABG, aortic valve stenosis, peripheral vascular disease, carotid stenosis, diabetes type 1, hypertension, CKD stage III, hypothyroidism, BPH, horseshoe kidney Presenting status post left BKA. Status post BKA, left Nonhealing Diabetic foot ulcer Stable overall Check labs tomorrow Pain control, DVT prophylaxis per orthopedic service CAD/CABG Peripheral Arterial disease Carotid stenosis Hypertension Follows with vascular service Dr. Devan Farr On apixaban 5 mg twice a day and Plavix 75 mg daily-resume once hemostasis stable as per Ortho Continue metoprolol XL, Lipitor Continue amlodipine Diabetes type 1 Usually on insulin lispro and Lantus BSG is 220s Will consult pharmacy glycemic control service CKD stage III Stable Monitor labs Hypothyroidism Continue levothyroxine 50 mcg daily DVT prophylaxis Resume patient's usual apixaban 5 mg p.o. twice a day once hemostasis is stable per Ortho Thank you for this consultation. We will follow the patient with you during their hospital stay. You can reach a member of the [facility] 14/06 via pager @ [phone]. History of Present Illness Reason for Consultation: Postoperative medical management Attending Physician: Marquis Dominguez MD History of Present Illness 79-year-old male with history of coronary disease/CABG, aortic valve stenosis, peripheral vascular disease, carotid stenosis, diabetes type 1, hypertension, CKD stage III, hypothyroidism, BPH, horseshoe kidney Presenting status post left BKA. Patient underwent left below the knee amputation today by Dr. Dominguez for nonhealing ulcer of the left foot in the setting of diabetes type 1, peripheral artery disease.. Procedure uneventful, transferred to the floor with no issues. On exam, patient seen resting recommend sitting up in good spirits, watching TV. States he feels fine overall. Denies headache, dizziness, chest pain, shortness of breath, abdominal pain, nausea vomiting. Postop pain well-controlled. Allergies Allergy/AdvReac Type Severity Reaction Status Date / Time amoxicillin [From Augmentin] AdvReac Severe Vomiting Verified 07/04/24 09:10 clavulanic acid AdvReac Severe Vomiting Verified 07/04/24 09:10 [From Augmentin] codeine AdvReac Severe Vomiting Verified 07/04/24 09:10 sulfamethoxazole AdvReac Severe Vomiting Verified 07/04/24 09:10 [From Bactrim] trimethoprim [From Bactrim] AdvReac Severe Vomiting Verified 07/04/24 09:10 Home Medications Medication Instructions Recorded Confirmed Type atorvastatin 40 mg tablet (Lipitor) 40 mg PO 1700 08/24/19 07/04/24 History blood sugar diagnostic (OneTouch #10 ea 08/24/19 06/27/24 History Ultra Blue Test Strip) cholecalciferol (vitamin D3) 50 2,000 units PO 1200 #90 caps 08/24/19 07/04/24 History mcg (2,000 unit) capsule coenzyme Q10 100 mg capsule 100 mg PO QPM 08/24/19 07/04/24 History insulin syringe-needle U-100 0.3 #10 ea 08/24/19 06/27/24 History mL 31 gauge x 5/16" (BD Insulin Syringe Ultra-Fine) levothyroxine 50 mcg tablet 50 mcg PO QAM #90 tabs 08/24/19 07/04/24 History kkengtni-wavmiyov-xiosj acid 400 1 tab PO DAILY 08/24/19 07/04/24 History mcg-vit K 20 mcg-lycop 300 mcg tablet (One-A-Day Men's Multivitamin) pen needle, diabetic 32 gauge x #10 ea 08/24/19 06/27/24 History 5/32" (BD Ultra-Fine Rupal Pen Needle) glucagon (human recombinant) 1 mg 1 mg subcut Q20M PRN hypoglycemia 09/15/19 07/04/24 Rx solution for injection (Glucagon #1 ea Emergency Kit) alendronate 35 mg tablet 35 mg PO WK 05/22/24 07/04/24 History cetirizine 10 mg tablet (Allergy 10 mg PO QPM 05/22/24 07/04/24 History Relief (cetirizine)) insulin glargine 100 unit/mL 14 unit subcut QAM 05/22/24 07/04/24 History subcutaneous solution (Lantus U-100 Insulin) insulin lispro 100 unit/mL See Rx Instructions subcut .COMPLEX 05/22/24 07/04/24 History subcutaneous pen (Humalog KwikPen (U-100) Insulin) timolol 0.25 % eye drops 1 drp ophthalmic (eye) BID 05/22/24 07/04/24 History apixaban 5 mg tablet (Eliquis) 5 mg PO BID #60 tabs 06/06/24 07/04/24 Rx doxycycline hyclate 100 mg capsule 100 mg PO QPM 06/20/24 07/04/24 History brimonidine 0.1 % eye drops 1 drp ophthalmic (eye) BID 06/27/24 07/04/24 History (Alphagan P) gabapentin 300 mg capsule 300 mg PO .COMPLEX #90 caps 06/27/24 07/04/24 Rx tramadol 50 mg tablet 100 mg (2 x 50 mg) PO .BID-TID PRN 06/27/24 07/04/24 Rx pain #50 tabs amlodipine 2.5 mg tablet 2.5 mg PO 1200 06/29/24 07/04/24 History clopidogrel 75 mg tablet 75 mg PO QPM 06/29/24 07/04/24 History metoprolol succinate 50 mg 50 mg PO BID 06/29/24 07/04/24 History tablet,extended release 24 hr Patient History Medical History Amputation of toe of right foot partial big toe amputation CAD (coronary artery disease) Chronic kidney disease stage 3 Glaucoma Ashlie thyroiditis per medical record, pt unaware History of flexible sigmoidoscopy Hyperlipidemia Hypertension Hypothyroidism Necrosis left foot toes and base of foot -> reason for the doxycycline prophylactic treatment On anticoagulant therapy preventative treatment for a clot that developed during patient's angiogram at [facility] 05/2024 Osteopenia Proliferative diabetic retinopathy PVD (peripheral vascular disease) S/P angiogram of extremity left leg (05/2024) at [facility] with Dr. Farr left leg (11/2023) Formerly [facility] Type 1 diabetes Surgical History History of cardiac cath (09/2003) at [facility]. no stents History of cataract surgery bilateral History of colonoscopy Hx of CABG (10/11/03) quadruple bypass at [facility] S/P eye surgery retinopexy bilateral laser surgery Family History Father Gout Other No family history of adverse response to anesthesia Social History Smoking Status: Never smoker Second Hand Exposure: No; Do You Dip or Chew Tobacco: No; Tobacco Cessation Education Requested by Patient: No Hx Alcohol Use: Yes Hx Substance Use: No Preferred Language: Cymro Communication Ability: Effective Bread Wrapper Required: No Beliefs That Will Affect Care: None Current Living Situation: Spouse Other Information That Helps Us Care for You: No Feels Safe at Home: Yes Safety Concerns: Feels Safe At This Time Assistive Devices: Cane, Glasses and Special Shoe Review of Systems Review of Systems: all noted and negative except for above Physical Exam Physical Exam: General- oriented x 3, not in distress, speaks in sentences with no effort or accessory muscle use Head- atraumatic Eyes- PERRL, EOMI, anicteric ENT- oropharynx clear Neck- supple, no JVD, no adenopathy, no thyromegaly; carotids +2/2, no bruits appreciated Lungs- clear to auscultation bilaterally, no rales/wheezes Heart- normal rate, regular rhythm; no murmur, no gallop, no rub appreciated Abdomen- normal bowel sounds, nondistended, soft, nontender, no masses or hepatosplenomegaly Extremities- Right lower extremity:no pretibial edema, no calf tenderness; peripheral pulses intact Left lower extremity: Status post BKA, have a dressing in place, drain in place with scant sanguinous output Neuro- alert, oriented x 3; CN 2-12 grossly intact; motor 5/5 bilaterally;sensation 100% on all extremities; no other gross focal neurologic deficits Skin- warm & dry Results & Data Vital Signs (Past 12 Hours) Vital Signs Temp Pulse Pulse Resp BP BP Pulse Ox 07/04/24 19:05 36.6 C 83 16 135/65 99 07/04/24 18:06 79 16 130/63 100 07/04/24 16:57 85 18 130/68 100 07/04/24 16:32 78 18 138/70 100 07/04/24 16:00 36.5 C 78 16 129/66 100 07/04/24 15:45 70 17 127/58 L 100 07/04/24 15:35 69 12 128/57 L 100 07/04/24 15:25 36.4 C L 71 18 130/58 L 100 07/04/24 15:15 74 21 131/60 100 07/04/24 15:05 69 13 133/61 100 07/04/24 14:58 36.4 C L 79 15 141/64 H 100 07/04/24 09:16 36.9 C 80 18 168/88 H 100 O2 Del Method O2 Flow Rate 07/04/24 19:05 Room Air 07/04/24 18:06 Room Air 07/04/24 16:57 Room Air 07/04/24 16:32 Room Air 07/04/24 16:00 Room Air 07/04/24 15:45 Room Air 07/04/24 15:35 Room Air 07/04/24 15:25 Room Air 07/04/24 15:15 Room Air 07/04/24 15:05 Oxymask 5 07/04/24 14:58 Oxymask 5 07/04/24 09:16 Room Air
[2024-07-04] MEDS ORDERED: NON-FORMULARY MEDICATION (Coenzyme Q10 100 mg capsule) PO SCH (21:00)
[2024-07-04] MEDS: SENNA 8.6 MG TAB PO SCH (21:19)
[2024-07-04] MEDS: ACETAMINOPHEN 500 MG TAB PO SCH (21:19)
[2024-07-04] MEDS: METOPROLOL SUCC 50MG EXT REL TAB PO SCH (21:19)
[2024-07-04] MEDS: CETIRIZINE HCL 10 MG TABLET PO SCH (21:19)
[2024-07-04] MEDS: DOCUSATE SODIUM 100 MG CAP PO SCH (21:19)
[2024-07-04] MEDS: ceFAZolin 1000MG 1,000 MG/7.5 ML SYR IV SCH (21:20)
[2024-07-04] MEDS: TRANEXAMIC ACID / 0.7% NACL 1,000 MG/100 ML BAG IV SCH (21:20)
[2024-07-04] MEDS: TIMOLOL MALEATE 0.25% OP SOLN 5 ML BTL OP SCH (21:20)
[2024-07-05] MEDS: oxyCODONE HCL IR 5 MG TAB (IMMEDIATE RELEASE) PO PRN (02:22)
[2024-07-05] MEDS: HYDROmorphone INJ 1 MG/ML SYRINGE IV PRN ×2 (03:16→17:05)
[2024-07-05] MEDS: LEVOTHYROXINE SODIUM 50 MCG TABLET PO SCH (05:45)
[2024-07-05 06:54] LABS: Hematocrit (blood only) 23.7 % (42.0-52.0); Hemoglobin 8.1 g/dl (14.0-18.0); Mean Corpuscular Hemoglobin 30.2 pg (25.0-34.0); Mean Corpuscular Hgb Conc 34.2 g/dL (32.0-36.0); Mean Corpuscular Volume 88.4 fL (80.0-100.0); Mean Platelet Volume 8.4 fL (9.4-12.4); Platelet Count 343 K/uL (130-400); RDW Coefficient of Variation 12.4 % (11.5-14.5); RDW Standard Deviation 39.8 fL (36.4-46.3); Red Blood Count 2.68 M/uL (4.70-6.10); White Blood Count 16.64 K/ul (4.8-10.8)
[2024-07-05 07:14] LABS: BUN Creatinine Ratio 18.4 (10-20); Calcium 7.9 mg/dl (8.6-10.3); Est GFR (African American) 84.6 ml/min
[2024-07-05] MEDS: LANTUS PER UNIT CHARGE SC SCH (08:30)
[2024-07-05] MEDS: APIXABAN 5 MG TABLET PO SCH (08:39)
[2024-07-05] MEDS: MULTIVITAMIN TAB PO SCH (08:39)
--- NOTE | 2024-07-05 08:42 | Orthopedic Progress Note ---
Date of Service July 05, 2024 Assessment & Plan (1) S/P BKA (below knee amputation) unilateral: Plan: Stable postoperatively. PT and OT today. Case management. Labs noted. Restart Eliquis and Plavix. Routine postop antibiotics. Appreciate hospitalist assistance. Admission and Anticipated Discharge Date Admission Date: July 04, 2024 Subjective Sore throat. Feels groggy. Some pain which is improved with medication. Interested in going to rehab. Physical Exam Physical Exam: Hemovac output is nil. Pulled. Dressing intact. Results & Data Vital Signs (Past 12 Hours) Vital Signs Temp Pulse Pulse Resp BP BP Pulse Ox 07/05/24 07:54 37.3 C 76 14 140/58 L 99 07/05/24 03:23 36.9 C 77 18 136/58 L 91 07/04/24 23:26 37.3 C 79 18 113/55 L 98 O2 Del Method 07/05/24 07:54 Room Air 07/05/24 03:23 Room Air 07/04/24 23:26 Room Air Laboratory Results Laboratory Results WBC 16.64 K/ul (4.8-10.8) H 07/05/24 06:25 RBC 2.68 M/uL (4.70-6.10) L 07/05/24 06:25 Hgb 8.1 g/dl (14.0-18.0) L 07/05/24 06:25 Hct 23.7 % (42.0-52.0) L 07/05/24 06:25 MCV 88.4 fL (80.0-100.0) 07/05/24 06:25 MCH 30.2 pg (25.0-34.0) 07/05/24 06:25 MCHC 34.2 g/dL (32.0-36.0) 07/05/24 06:25 RDW Std Deviation 39.8 fL (36.4-46.3) 07/05/24 06:25 RDW Coeff of Swetha 12.4 % (11.5-14.5) 07/05/24 06:25 Plt Count 343 K/uL (130-400) 07/05/24 06:25 MPV 8.4 fL (9.4-12.4) L 07/05/24 06:25 Sodium 129 mmol/L (136-145) L 07/05/24 06:25 Potassium 4.0 mmol/L (3.5-5.1) 07/05/24 06:25 Chloride 98 mmol/L (98-107) 07/05/24 06:25 Carbon Dioxide 23 mmol/L (21-32) 07/05/24 06:25 Anion Gap 8 (3-11) 07/05/24 06:25 BUN 18 mg/dl (6-23) 07/05/24 06:25 Creatinine 0.98 mg/dl (0.6-1.4) 07/05/24 06:25 Est Cr Clr Drug Dosing 54.0 ml/min 07/05/24 06:25 Est GFR ( Amer) 84.6 ml/min 07/05/24 06:25 Est GFR (Non-Af Amer) 73.0 ml/min 07/05/24 06:25 BUN/Creatinine Ratio 18.4 (10-20) 07/05/24 06:25 Glucose 117 mg/dl (70-99(Fasting)) H 07/05/24 06:25 POC Glucose 132 mg/dl (70-99) H 07/05/24 07:19 Calcium 7.9 mg/dl (8.6-10.3) L 07/05/24 06:25 Blood Type O Negative 07/04/24 08:54 Antibody Screen NEGATIVE 07/04/24 08:54 Impressions Knee X-Ray 07/04/24 10:10 FL knee LT 1 or 2V CLINICAL HISTORY: LEFT BELOW KNEE AMPUTATION COMPARISON STUDY: None. FLUOROSCOPY TIME: 6 seconds FLUOROSCOPY IMAGES: Ka,r: 0.1 mGy FINDINGS: Postoperative changes consistent with a left below the knee amputation. Surgical drain is in place. IMPRESSION: Fluoroscopic assistance as above. ACT 112: Negative or not required by law. Electronically signed by: Bang Tran M.D. 07/04/2024 2:59 PM
[2024-07-05] MEDS: CHOLECALCIFEROL 25 MCG (1000 UNITS) TAB PO SCH (12:27)
[2024-07-05] MEDS: amLODIPine BESYLATE 5 MG TAB PO SCH (12:27)
--- NOTE | 2024-07-05 13:03 | Pharmacy Report ---
Pharmacy Glycemic Short Note 2 - Date of Service July 05, 2024 - Glycemic Short BSG Results (Last 24 hours): 07/04/24 07/04/24 07/04/24 14:58 16:38 19:53 Glucose POC Glucose 199 H 228 H 208 H 07/05/24 07/05/24 07/05/24 06:25 07:19 11:23 Glucose 117 H POC Glucose 132 H 173 H OUTPATIENT ANTIDIABETIC REGIMEN: * Lantus 14 units Qam, Lispro 3 units breakfast, 3-5 units lunch, 4-10 units dinner ASSESSMENT: * Patient is s/p surgery, POD 1. Patient type 1 diabetic, pharmacy consulted for glycemic management. Fasting BSG this AM 132 mg/dL - diet ordered this Am, will resume home basal insulin this morning. Will utilize weight based stress 2 for novolog. PLAN FOR INPATIENT GLYCEMIC CONTROL: * Hold outpatient oral diabetes medications * Basal insulin * Lantus 14 units daily * Bolus insulin * NovoLog per scale ACHS or Q6hrs while NPO * Goal Range: Low 110 mg/dL - High 140 mg/dL * Correction Factor: 35 mg/dL/unit * Nutritional / Prandial insulin per carb ratio of 1 unit per 12 grams CHO consumed
[2024-07-05] MEDS: BRIMONIDINE TAR 0.1% 75 DROPS/5 ML BTL OP SCH (13:26)
[2024-07-05 14:57] LABS: Calcium 7.9 mg/dl (8.6-10.3); Est GFR (Non-African American) 66.4 ml/min; Potassium 4.2 mmol/L (3.5-5.1)
--- NOTE | 2024-07-05 16:48 | Hospitalist Progress Note ---
Date of Service July 05, 2024 Assessment & Plan (1) Post-operative state: (2) S/P BKA (below knee amputation) unilateral: (3) CAD (coronary atherosclerotic disease): (4) PAD (peripheral artery disease): (5) Type 1 diabetes mellitus with complications: Plan: Mr. Gonzalez is a 79-year-old male with history of coronary disease/CABG, aortic valve stenosis, peripheral vascular disease, carotid stenosis, diabetes type 1, hypertension, CKD stage III, hypothyroidism, BPH, horseshoe kidney [facility] op co management for BKA. Labs notable for hyponatremia, down to 127. Patient reports fatigue and exhaustion but no neuro deficits noted. Reports history of hyponatremia, but unable to see any visits or interventions noted. 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 #Status post BKA, left 07/04 Nonhealing Diabetic foot ulcer Stable overall, performed by Dr. Dominguez Pain control, DVT prophylaxis per orthopedic service PT/OT, posisble rehab bowel regimen #Acute hyponatremia down to 127 Serum osmo and urine studies ordered Trend BMP q6h Will avoid FR and encourage PO until results return given recent poor po intake Nephrology consult #Acute on chronic anemia, 2/2 postoperative losses Baseline seems to range in 9-10 recently Follow heme/onc in 2022 2/2 anemia, thought to be 2/2 anemia chronic disease/CKD Preop 9, now 8.1 post op Trend CBC, transfuse < 7.0 #CAD/CABG #Peripheral Arterial disease #Carotid stenosis #Hypertension Follows with vascular service Dr. Devan Farr On apixaban 5 mg twice a day and Plavix 75 mg daily-resumed per Ortho Continue metoprolol XL, Lipitor Continue amlodipine #Diabetes type 1 Usually on insulin lispro and Lantus BSG is 220s Will consult pharmacy glycemic control service #CKD stage III Stable Monitor labs #Hypothyroidism Continue levothyroxine 50 mcg daily DVT prophylaxis apixaban 5 mg p.o. twice a day Thank you for this consultation. We will follow the patient with you during their hospital stay. You can reach a member of the [facility] Team 14/06 via pager @ [phone]. Admission and Anticipated Discharge Date Admission Date: July 04, 2024 Subjective s/p BKA Patient reports feeling anxious about "learning how to live with 1 leg" States pain medicine helps, but seems to wear off quickly Denies any new concerns otherwise--discussed labs including low sodium Reports no BM for "days" but still with flatus Physical Exam Constitutional: WD/WN, vitals as above Respiratory: normal respiratory effort, lungs clear to auscultation Cardiovascular: RRR, no murmur, no edema Gastrointestinal (Abdomen): normal bowel sounds, soft, nontender, no hepatosplenomegaly Musculoskeletal: left stump with bandage/dressing CDI Results & Data Results & Data Vital Signs (Past 12 Hours) Vital Signs Temp Pulse Resp BP Pulse Ox O2 Del Method 07/05/24 12:54 37.3 C 70 16 138/68 99 Room Air 07/05/24 07:54 37.3 C 76 14 140/58 L 99 Room Air Laboratory Results Short CBC 07/05/24 Range/Units 06:25 WBC 16.64 H (4.8-10.8) K/ul Hgb 8.1 L (14.0-18.0) g/dl Hct 23.7 L (42.0-52.0) % Plt Count 343 (130-400) K/uL BMP 07/05/24 07/05/24 06:25 14:24 Sodium 129 L 127 L Potassium 4.0 4.2 Chloride 98 97 L Carbon Dioxide 23 26 BUN 18 17 Creatinine 0.98 1.06 Glucose 117 H 129 H Calcium 7.9 L 7.9 L Medications Administered Home Medications Medication Instructions Recorded Confirmed Last Taken atorvastatin 40 mg tablet (Lipitor) 40 mg PO 1700 08/24/19 07/04/24 07/03/24 18:00 blood sugar diagnostic (OneTouch #10 ea 08/24/19 06/27/24 Unknown Ultra Blue Test Strip) cholecalciferol (vitamin D3) 50 2,000 units PO 1200 #90 caps 08/24/19 07/04/24 07/03/24 12:00 mcg (2,000 unit) capsule coenzyme Q10 100 mg capsule 100 mg PO QPM 08/24/19 07/04/24 07/03/24 18:00 insulin syringe-needle U-100 0.3 #10 ea 08/24/19 06/27/24 Unknown mL 31 gauge x 5/16" (BD Insulin Syringe Ultra-Fine) levothyroxine 50 mcg tablet 50 mcg PO QAM #90 tabs 08/24/19 07/04/24 07/04/24 07:30 wictxadd-rrpwbccq-ryzha acid 400 1 tab PO DAILY 08/24/19 07/04/24 07/03/24 08:00 mcg-vit K 20 mcg-lycop 300 mcg tablet (One-A-Day Men's Multivitamin) pen needle, diabetic 32 gauge x #10 ea 08/24/19 06/27/24 Unknown " (BD Ultra-Fine Rupal Pen Needle) glucagon (human recombinant) 1 mg 1 mg subcut Q20M PRN hypoglycemia 09/15/19 07/04/24 Unknown solution for injection (Glucagon #1 ea Emergency Kit) alendronate 35 mg tablet 35 mg PO WK 05/22/24 07/04/24 07/02/24 cetirizine 10 mg tablet (Allergy 10 mg PO QPM 05/22/24 07/04/24 07/03/24 18:00 Relief (cetirizine)) insulin glargine 100 unit/mL 14 unit subcut QAM 05/22/24 07/04/24 07/04/24 07:30 subcutaneous solution (Lantus U-100 Insulin) insulin lispro 100 unit/mL See Rx Instructions subcut .COMPLEX 05/22/24 07/04/24 07/03/24 18:00 subcutaneous pen (Humalog KwikPen (U-100) Insulin) timolol 0.25 % eye drops 1 drp ophthalmic (eye) BID 05/22/24 07/04/24 07/04/24 07:30 apixaban 5 mg tablet (Eliquis) 5 mg PO BID #60 tabs 06/06/24 07/04/24 06/30/24 doxycycline hyclate 100 mg capsule 100 mg PO QPM 06/20/24 07/04/24 07/03/24 12:00 brimonidine 0.1 % eye drops 1 drp ophthalmic (eye) BID 06/27/24 07/04/24 07/04/24 07:30 (Alphagan P) gabapentin 300 mg capsule 300 mg PO .COMPLEX #90 caps 06/27/24 07/04/24 Unknown tramadol 50 mg tablet 100 mg (2 x 50 mg) PO .BID-TID PRN 06/27/24 07/04/24 Unknown pain #50 tabs amlodipine 2.5 mg tablet 2.5 mg PO 1200 06/29/24 07/04/24 07/03/24 12:00 clopidogrel 75 mg tablet 75 mg PO QPM 06/29/24 07/04/24 06/30/24 metoprolol succinate 50 mg 50 mg PO BID 06/29/24 07/04/24 07/04/24 07:30 tablet,extended release 24 hr Active Medications Generic Name Dose Route Start Last Admin Trade Name Albino PRN Reason Stop Dose Admin Acetaminophen 1,000 mg 07/04/24 22:00 07/05/24 14:57 Acetaminophen 500 Mg Tab PO 08/03/24 21:59 1,000 mg Q8 LUIS MANUEL Administration Amlodipine Besylate 2.5 mg 07/05/24 12:00 07/05/24 12:27 Amlodipine Besylate 5 Mg Tab PO 08/04/24 11:59 2.5 mg 1200 LUIS MANUEL Administration Apixaban 5 mg 07/05/24 09:00 07/05/24 08:39 Apixaban 5 Mg Tablet PO 08/04/24 08:59 5 mg BID LUIS MANUEL Administration Atorvastatin Calcium 40 mg 07/04/24 17:00 07/05/24 16:07 Atorvastatin 40 Mg Tab PO 08/03/24 16:59 40 mg 1700 LUIS MANUEL Administration Brimonidine Tartrate 1 drops 07/05/24 13:15 07/05/24 13:26 Brimonidine Tar 0.1% 75 Drops/5 Ml Btl OP 08/04/24 13:14 Not Given BID LUIS MANUEL Cetirizine HCl 10 mg 07/04/24 21:00 07/04/24 21:19 Cetirizine Hcl 10 Mg Tablet PO 08/03/24 20:59 10 mg QPM LUIS MANUEL Administration Docusate Sodium 100 mg 07/04/24 21:00 07/05/24 08:39 Docusate Sodium 100 Mg Cap PO 08/03/24 20:59 100 mg BID LUIS MANUEL Administration Insulin Aspart 0 units 07/04/24 16:45 07/05/24 12:22 Insulin Aspart Per Unit Charge SC 08/03/24 16:44 1 units ACHS LUIS MANUEL Administration Insulin Glargine 14 units 07/05/24 09:00 07/05/24 08:30 Lantus Per Unit Charge SC 08/04/24 08:59 14 units QAM LUIS MANUEL Administration Levothyroxine Sodium 50 mcg 07/05/24 06:30 07/05/24 05:45 Levothyroxine Sodium 50 Mcg Tablet PO 08/04/24 06:29 50 mcg DAILYBB LUIS MANUEL Administration Metoprolol Succinate 50 mg 07/04/24 21:00 07/05/24 08:39 Metoprolol Succ 50mg Ext Rel Tab PO 08/03/24 20:59 50 mg BID LUIS MANUEL Administration Multivitamins 1 tab 07/05/24 09:00 07/05/24 08:39 Multivitamin Tab PO 08/04/24 08:59 1 tab DAILY LUIS MANUEL Administration Oxycodone HCl 5 - 10 mg 07/04/24 16:16 07/05/24 16:06 Oxycodone Hcl Ir 5 Mg Tab (Immediate Release) PO 07/18/24 16:15 10 mg Q4H PRN Administration Pain or Pre PT Sennosides 17.2 mg 07/04/24 21:00 07/04/24 21:19 Senna 8.6 Mg Tab PO 08/03/24 20:59 17.2 mg HS LUIS MANUEL Administration Timolol Maleate 1 drops 07/04/24 21:00 07/05/24 08:40 Timolol Maleate 0.25% Op Soln 5 Ml Btl OP 08/03/24 20:59 1 drops BID LUIS MANUEL Administration Vitamin D 50 mcg 07/05/24 12:00 07/05/24 12:27 Cholecalciferol 25 Mcg (1000 Units) Tab PO 08/04/24 11:59 50 mcg 1200 LUIS MANUEL Administration
[2024-07-05] MEDS: POLYETHYLENE (MIRALAX) 17 GM PACK PO SCH (17:04)
[2024-07-05] MEDS: CLOPIDOGREL BISULFATE 75 MG TAB PO SCH (20:46)
[2024-07-05 22:30] LABS: Urine Potassium 33.2 mmol/L
[2024-07-06 02:31] LABS: Basophils # (auto) 0.03 K/uL (0.00-0.20); Basophils % (auto) 0.2 %; Eosinophils # (auto) 0.11 K/uL (0.00-0.50); Eosinophils % (auto) 0.6 %; Hematocrit (blood only) 23.3 % (42.0-52.0); Hemoglobin 7.9 g/dl (14.0-18.0); Immature Granulocytes # (auto) 0.12 K/uL (0.01-0.20); Immature Granulocytes % (auto) 0.7 %; Lymphocytes # (auto) 1.56 K/uL (1.20-3.40); Lymphocytes % (auto) 8.9 %; Mean Corpuscular Hgb Conc 33.9 g/dL (32.0-36.0); Mean Corpuscular Volume 88.6 fL (80.0-100.0); Mean Platelet Volume 8.5 fL (9.4-12.4); Monocytes % (auto) 8.5 %; Neutrophils # (auto) 14.23 K/uL (1.40-6.50); Neutrophils % (auto) 81.1 %; Platelet Count 331 K/uL (130-400); RDW Coefficient of Variation 12.5 % (11.5-14.5); RDW Standard Deviation 40.4 fL (36.4-46.3); Red Blood Count 2.63 M/uL (4.70-6.10); White Blood Count 17.55 K/ul (4.8-10.8)
[2024-07-06 02:41] LABS: BUN Creatinine Ratio 16.5 (10-20); Calcium 8.4 mg/dl (8.6-10.3); Creatinine Clr Calc Pharmacy 51.4 ml/min; Est GFR (African American) 79.7 ml/min; Est GFR (Non-African American) 68.8 ml/min; Potassium 4.2 mmol/L (3.5-5.1)
[2024-07-06 02:53] LABS: RBC Morphology Unremarkable
[2024-07-06] MEDS ORDERED: SODIUM CHLORIDE 0.9% 250 ML IV PRN ×2 (03:04→09:07)
[2024-07-06] MEDS: ACETAMINOPHEN 500 MG TAB PO STA (04:23)
--- NOTE | 2024-07-06 04:24 | Communication Note ---
Date of Service: July 06, 2024
[2024-07-06] MEDS: FUROSEMIDE INJ 20 MG/2 ML VIAL IV ONE (04:27)
[2024-07-06 04:32] LABS: Appearance Urine Clear (Clear); Bacteria Urine Automated None Seen (None Seen); Bilirubin Urine Negative (Negative); Blood Urine Negative (Negative); Cast Urine Automated 0-2 /lpf (0-2); Color Urine Yellow; Epithelial Cell Urine Auto 0-2 /hpf (0-2); Glucose Urine UA Negative (Negative); Ketones Urine Negative (Negative); Leukocyte Esterase Urine Negative (Negative); Nitrite Urine Negative (Negative); Protein Urine Trace (Negative); RBC Urine Automated 0-2 /hpf (0-2); Specific Gravity Urine 1.013 (1.000-1.030); Urobilinogen Urine Negative (Negative); WBC Urine Automated 0-5 /hpf (0-5)
[2024-07-06 04:37] LABS: Albumin Level 3.3 gm/dl (3.4-5.0); Bilirubin Direct 0.1 mg/dl (0-0.2); Bilirubin,Total 0.4 mg/dl (0.2-1.0); Total Protein 5.7 gm/dl (6.0-8.3)
[2024-07-06 04:43] LABS: Thyroid Stimulating Hormone 3.417 uIu/ml (0.300-4.500)
[2024-07-06 06:09] LABS: Adenovirus PCR Not Detected (NotDetected); Bordetella parapertussis PCR Not Detected (NotDetected); Bordetella pertussis PCR Not Detected (NotDetected); Chlamydia pneumoniae PCR Not Detected (NotDetected); Coronavirus 229E PCR Not Detected (NotDetected); Coronavirus CoV-2 (COVID19)PCR Not Detected (NotDetected); Coronavirus HKU1 PCR Not Detected (NotDetected); Coronavirus NL63 PCR Not Detected (NotDetected); Coronavirus OC43PCR Not Detected (NotDetected); Human Metapneumovirus PCR Not Detected (NotDetected); Influenza A PCR Not Detected (NotDetected); Influenza B PCR Not Detected (NotDetected); Mycoplasma pneumoniae PCR Not Detected (NotDetected); Parainfluenza Virus 1 PCR Not Detected (NotDetected); Parainfluenza Virus 2 PCR Not Detected (NotDetected); Parainfluenza Virus 3 PCR Not Detected (NotDetected); Parainfluenza Virus 4 PCR Not Detected (NotDetected); Respiratory Syncytial VirusPCR Not Detected (NotDetected); Rhinovirus/Enterovirus PCR Not Detected (NotDetected)
--- NOTE | 2024-07-06 06:32 | XRay Report ---
XR chest 1V portable CLINICAL HISTORY: hyponatremia COMPARISON STUDY: No previous studies for comparison. FINDINGS: Status post median sternotomy. Lung volumes are normal. Patchy left midlung opacities are p resent. There are also linear left basilar densities. There is no pneumothorax or pleural effusion. C ardiac size is normal. Mediastinal contours are normal. There is no evidence for pulmonary edema. Neal cific tendinitis of the left rotator cuff is incidentally noted. IMPRESSION: Patchy left midlung airspace opacities suggestive of pneumonia. However, radiographic fo llow-up to ensure resolution and exclude the possibility of an underlying pulmonary lesion is recomme nded. ACT 112: Positive. There are findings on this exam that require communication between the performing entity and the patient following Patient Test Result Information Act ([place] Act 112) guidelines. Electronically signed by: Jimenez Clinton M.D. 07/06/2024 6:30 AM
[2024-07-06 09:01] LABS: Hematocrit (blood only) 20.7 % (42.0-52.0); Hemoglobin 7.1 g/dl (14.0-18.0)
--- NOTE | 2024-07-06 11:01 | Nephrology Consultation ---
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 Urine osmolality was 379 and urine sodium of 44. Patient reports chronic hyponatremia. Sodium is 126 today. Will start him on urea 15 g twice daily. Okay to monitor sodium once daily. (2) S/P BKA (below knee amputation) unilateral: Please manage pain aggressively which is a known trigger for SIADH. History of Present Illness Reason for Consultation: Hyponatremia Requesting Physician: Marquis Dominguez MD Attending Physician: Marquis Dominguez MD History of Present Illness This is 79-year-old male with history of hypertension, hypothyroidism, coronary artery disease status post CABG, aortic valve stenosis, peripheral artery disease and type 1 diabetes who is status post left BKA on 07/04/24 now being evaluated for hyponatremia. He reports chronic hyponatremia. Sodium has been around 126 since admission. He may have been drinking more than usual. He has now been put on a fluid limit to 1.5 L daily. He denies any pain, nausea or vomiting. Right leg is not swollen but has some wounds. Right leg is in a compression stocking. Left amputation stump is wrapped. Allergies Allergy/AdvReac Type Severity Reaction Status Date / Time amoxicillin [From Augmentin] AdvReac Severe Vomiting Verified 07/04/24 09:10 clavulanic acid AdvReac Severe Vomiting Verified 07/04/24 09:10 [From Augmentin] codeine AdvReac Severe Vomiting Verified 07/04/24 09:10 sulfamethoxazole AdvReac Severe Vomiting Verified 07/04/24 09:10 [From Bactrim] trimethoprim [From Bactrim] AdvReac Severe Vomiting Verified 07/04/24 09:10 Home Medications Medication Instructions Recorded Confirmed Type atorvastatin 40 mg tablet (Lipitor) 40 mg PO 1700 08/24/19 07/04/24 History blood sugar diagnostic (OneTouch #10 ea 08/24/19 06/27/24 History Ultra Blue Test Strip) cholecalciferol (vitamin D3) 50 2,000 units PO 1200 #90 caps 08/24/19 07/04/24 History mcg (2,000 unit) capsule coenzyme Q10 100 mg capsule 100 mg PO QPM 08/24/19 07/04/24 History insulin syringe-needle U-100 0.3 #10 ea 08/24/19 06/27/24 History mL 31 gauge x 5/16" (BD Insulin Syringe Ultra-Fine) levothyroxine 50 mcg tablet 50 mcg PO QAM #90 tabs 08/24/19 07/04/24 History pyixvgrk-piqvetll-aamda acid 400 1 tab PO DAILY 08/24/19 07/04/24 History mcg-vit K 20 mcg-lycop 300 mcg tablet (One-A-Day Men's Multivitamin) pen needle, diabetic 32 gauge x #10 ea 08/24/19 06/27/24 History 5/32" (BD Ultra-Fine Rupal Pen Needle) glucagon (human recombinant) 1 mg 1 mg subcut Q20M PRN hypoglycemia 09/15/19 07/04/24 Rx solution for injection (Glucagon #1 ea Emergency Kit) alendronate 35 mg tablet 35 mg PO WK 05/22/24 07/04/24 History cetirizine 10 mg tablet (Allergy 10 mg PO QPM 05/22/24 07/04/24 History Relief (cetirizine)) insulin glargine 100 unit/mL 14 unit subcut QAM 05/22/24 07/04/24 History subcutaneous solution (Lantus U-100 Insulin) insulin lispro 100 unit/mL See Rx Instructions subcut .COMPLEX 05/22/24 07/04/24 History subcutaneous pen (Humalog KwikPen (U-100) Insulin) timolol 0.25 % eye drops 1 drp ophthalmic (eye) BID 05/22/24 07/04/24 History apixaban 5 mg tablet (Eliquis) 5 mg PO BID #60 tabs 06/06/24 07/04/24 Rx doxycycline hyclate 100 mg capsule 100 mg PO QPM 06/20/24 07/04/24 History brimonidine 0.1 % eye drops 1 drp ophthalmic (eye) BID 06/27/24 07/04/24 History (Alphagan P) gabapentin 300 mg capsule 300 mg PO .COMPLEX #90 caps 06/27/24 07/04/24 Rx tramadol 50 mg tablet 100 mg (2 x 50 mg) PO .BID-TID PRN 06/27/24 07/04/24 Rx pain #50 tabs amlodipine 2.5 mg tablet 2.5 mg PO 1200 06/29/24 07/04/24 History clopidogrel 75 mg tablet 75 mg PO QPM 06/29/24 07/04/24 History metoprolol succinate 50 mg 50 mg PO BID 06/29/24 07/04/24 History tablet,extended release 24 hr Patient History Medical History Amputation of toe of right foot partial big toe amputation CAD (coronary artery disease) Chronic kidney disease stage 3 Glaucoma Ashlie thyroiditis per medical record, pt unaware History of flexible sigmoidoscopy Hyperlipidemia Hypertension Hypothyroidism Necrosis left foot toes and base of foot -> reason for the doxycycline prophylactic treatment On anticoagulant therapy preventative treatment for a clot that developed during patient's angiogram at [facility] 05/2024 Osteopenia Proliferative diabetic retinopathy PVD (peripheral vascular disease) S/P angiogram of extremity left leg (05/2024) at [facility] with Dr. Farr left leg (11/2023) [facility] Type 1 diabetes Surgical History History of cardiac cath (09/2003) at [facility]. 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 Gastrointestinal: Abdomen is soft, non distended, non tender, bowel sounds are present CVS: Regular rate and rhythm. No murmurs, rubs or gallops Musculoskeletal: No joint or muscle tenderness Extremities: Non tender, no edema, peripheral pulses are present Neuro: Oriented, no tremors, no focal neurological deficits Skin: No rashes Results & Data Vital Signs (Past 12 Hours) Vital Signs Temp Pulse Pulse Resp BP BP BP 07/06/24 10:47 36.8 C 07/06/24 10:47 68 14 116/61 07/06/24 07:40 37.1 C 71 18 115/63 07/06/24 05:07 37.6 C H 76 16 122/67 07/06/24 04:07 38.4 C H 77 16 130/70 Pulse Ox O2 Del Method O2 Flow Rate 07/06/24 10:47 07/06/24 10:47 98 0 07/06/24 07:40 97 Room Air 07/06/24 05:07 96 Room Air 07/06/24 04:07 94 Room Air Laboratory Results 07/06/24 08:18 07/06/24 02:08 WBC 17.55 H RBC 2.63 L MCV 88.6 MCH 30.0 MCHC 33.9 RDW Std Deviation 40.4 RDW Coeff of Swetha 12.5 Plt Count 331 MPV 8.5 L Albumin 3.3 L
[2024-07-06] MEDS: UREA (UREA-NA) 15 GM PACK PO SCH (11:27)
[2024-07-06] MEDS: ACETAMINOPHEN 500 MG TAB PO SCH (12:31)
--- NOTE | 2024-07-06 12:46 | Hospitalist Progress Note ---
Date of Service July 06, 2024 Assessment & Plan (1) Post-operative state: (2) S/P BKA (below knee amputation) unilateral: (3) CAD (coronary atherosclerotic disease): (4) PAD (peripheral artery disease): (5) Type 1 diabetes mellitus with complications: Plan: Mr. Gonzalez is a 79-year-old male with history of coronary disease/CABG, aortic valve stenosis, peripheral vascular disease, carotid stenosis, diabetes type 1, hypertension, CKD stage III, hypothyroidism, BPH, horseshoe kidney for whom [facility] is consulted for post op co management for BKA. Labs notable for hyponatremia, down to 127. Patient reports fatigue and exhaustion but no neuro deficits noted. Reports history of hyponatremia, but unable to see any visits or interventions noted. Labs c/w SIADH. Nephrology starting urea BID hgb at 7.1 this am--given notable vascular history, will transfuse and opt for goal hgb >8.0 #Acute on chronic anemia, 2/2 postoperative losses Baseline seems to range in 9-10 recently Follow heme/onc in 2022 2/2 anemia, thought to be 2/2 anemia chronic disease/CKD Preop 9, now 8.1 post op Trend CBC, transfuse < 8.9 Given history of PAD, CKD, CAD, will pursue transfusion goal > 8.0; therefore s/p 1 UPRBC this am for hgb 7.1 #Status post BKA, left 07/04 #Nonhealing Diabetic foot ulcer Stable overall, performed by Dr. Dominguez Pain control, DVT prophylaxis per orthopedic service PT/OT, posisble rehab bowel regimen #Acute hyponatremia as low as 126 Serum osmo and urine studies ordered Trend BMP daily per nephrology Will avoid FR and encourage PO until results return given recent poor po intake Nephrology consult -UREA bid #CAD/CABG #Peripheral Arterial disease #Carotid stenosis #Hypertension Follows with vascular service Dr. Devan Farr On apixaban 5 mg twice a day and Plavix 75 mg daily-resumed per Ortho Continue metoprolol XL, Lipitor Continue amlodipine #Diabetes type 1 Usually on insulin lispro and Lantus BSG is 220s Will consult pharmacy glycemic control service #CKD stage III Stable Monitor labs #Hypothyroidism Continue levothyroxine 50 mcg daily DVT prophylaxis apixaban 5 mg p.o. twice a day Thank you for this consultation. We will follow the patient with you during their hospital stay. You can reach a member of the [facility] 14/06 via pager @ [phone]. Admission and Anticipated Discharge Date Admission Date: July 04, 2024 Subjective Patient reports feeling much improved overall States pain better controlled, still passing flatus but no BM this morning Denies any nausea, vomiting or other acute concerns VS stable Physical Exam Constitutional: WD/WN, vitals as above Respiratory: normal respiratory effort, lungs clear to auscultation Cardiovascular: RRR, no murmur, no edema Results & Data Results & Data Vital Signs (Past 12 Hours) Vital Signs Temp Pulse Pulse Resp BP BP BP 07/06/24 11:21 36.8 C 67 15 130/70 07/06/24 11:07 37.3 C 67 15 117/65 07/06/24 10:47 36.8 C 07/06/24 10:47 68 14 116/61 07/06/24 07:40 37.1 C 71 18 115/63 07/06/24 05:07 37.6 C H 76 16 122/67 07/06/24 04:07 38.4 C H 77 16 130/70 Pulse Ox O2 Del Method O2 Flow Rate 07/06/24 11:21 97 0 07/06/24 11:07 98 0 07/06/24 10:47 07/06/24 10:47 98 0 07/06/24 07:40 97 Room Air 07/06/24 05:07 96 Room Air 07/06/24 04:07 94 Room Air Laboratory Results Short CBC 07/06/24 07/06/24 Range/Units 02:08 08:18 WBC 17.55 H (4.8-10.8) K/ul Hgb 7.9 L 7.1 L (14.0-18.0) g/dl Hct 23.3 L 20.7 L* (42.0-52.0) % Plt Count 331 (130-400) K/uL BMP 07/05/24 07/06/24 07/06/24 14:24 02:08 08:18 Sodium 127 L 125 L 126 L Potassium 4.2 4.2 Chloride 97 L 94 L Carbon Dioxide 26 22 BUN 17 17 Creatinine 1.06 1.03 Glucose 129 H 127 H Calcium 7.9 L 8.4 L Liver Function 07/06/24 Range/Units 02:08 Total Bilirubin 0.4 (0.2-1.0) mg/dl Direct Bilirubin 0.1 (0-0.2) mg/dl AST 39 (13-39) U/L ALT 14 (7-52) U/L Alkaline Phosphatase 51 (34-104) U/L Albumin 3.3 L (3.4-5.0) gm/dl Urine 07/06/24 Range/Units Unknown Urine Color Yellow Urine Appearance Clear (Clear) Urine pH 6.0 (4.5-7.5) Ur Specific Beulah 1.013 (1.000-1.030) Urine Protein Trace H (Negative) Urine Glucose (UA) Negative (Negative) Medications Administered Home Medications Medication Instructions Recorded Confirmed Last Taken atorvastatin 40 mg tablet (Lipitor) 40 mg PO 1700 08/24/19 07/04/24 07/03/24 18:00 blood sugar diagnostic (OneTouch #10 ea 08/24/19 06/27/24 Unknown Ultra Blue Test Strip) cholecalciferol (vitamin D3) 50 2,000 units PO 1200 #90 caps 08/24/19 07/04/24 07/03/24 12:00 mcg (2,000 unit) capsule coenzyme Q10 100 mg capsule 100 mg PO QPM 08/24/19 07/04/24 07/03/24 18:00 insulin syringe-needle U-100 0.3 #10 ea 08/24/19 06/27/24 Unknown mL 31 gauge x 5/16" (BD Insulin Syringe Ultra-Fine) levothyroxine 50 mcg tablet 50 mcg PO QAM #90 tabs 08/24/19 07/04/24 07/04/24 07:30 ehihcrbb-rnefebwx-rybvb acid 400 1 tab PO DAILY 08/24/19 07/04/24 07/03/24 08:00 mcg-vit K 20 mcg-lycop 300 mcg tablet (One-A-Day Men's Multivitamin) pen needle, diabetic 32 gauge x #10 ea 08/24/19 06/27/24 Unknown 5/32" (BD Ultra-Fine Rupal Pen Needle) glucagon (human recombinant) 1 mg 1 mg subcut Q20M PRN hypoglycemia 09/15/19 07/04/24 Unknown solution for injection (Glucagon #1 ea Emergency Kit) alendronate 35 mg tablet 35 mg PO WK 05/22/24 07/04/24 07/02/24 cetirizine 10 mg tablet (Allergy 10 mg PO QPM 05/22/24 07/04/24 07/03/24 18:00 Relief (cetirizine)) insulin glargine 100 unit/mL 14 unit subcut QAM 05/22/24 07/04/24 07/04/24 07:30 subcutaneous solution (Lantus U-100 Insulin) insulin lispro 100 unit/mL See Rx Instructions subcut .COMPLEX 05/22/24 07/04/24 07/03/24 18:00 subcutaneous pen (Humalog KwikPen (U-100) Insulin) timolol 0.25 % eye drops 1 drp ophthalmic (eye) BID 05/22/24 07/04/24 07/04/24 07:30 apixaban 5 mg tablet (Eliquis) 5 mg PO BID #60 tabs 06/06/24 07/04/24 06/30/24 doxycycline hyclate 100 mg capsule 100 mg PO QPM 06/20/24 07/04/24 07/03/24 12:00 brimonidine 0.1 % eye drops 1 drp ophthalmic (eye) BID 06/27/24 07/04/24 07/04/24 07:30 (Alphagan P) gabapentin 300 mg capsule 300 mg PO .COMPLEX #90 caps 06/27/24 07/04/24 Unknown tramadol 50 mg tablet 100 mg (2 x 50 mg) PO .BID-TID PRN 06/27/24 07/04/24 Unknown pain #50 tabs amlodipine 2.5 mg tablet 2.5 mg PO 1200 06/29/24 07/04/24 07/03/24 12:00 clopidogrel 75 mg tablet 75 mg PO QPM 06/29/24 07/04/24 06/30/24 metoprolol succinate 50 mg 50 mg PO BID 06/29/24 07/04/24 07/04/24 07:30 tablet,extended release 24 hr Active Medications Generic Name Dose Route Start Last Admin Trade Name Freq PRN Reason Stop Dose Admin Acetaminophen 1,000 mg 07/06/24 13:00 07/06/24 12:31 Acetaminophen 500 Mg Tab PO 08/05/24 12:59 1,000 mg Q8H LUIS MANUEL Administration Amlodipine Besylate 2.5 mg 07/05/24 12:00 07/06/24 12:31 Amlodipine Besylate 5 Mg Tab PO 08/04/24 11:59 2.5 mg 1200 LUIS MANUEL Administration Apixaban 5 mg 07/05/24 09:00 07/06/24 08:38 Apixaban 5 Mg Tablet PO 08/04/24 08:59 5 mg BID LUIS MANUEL Administration Atorvastatin Calcium 40 mg 07/04/24 17:00 07/05/24 16:07 Atorvastatin 40 Mg Tab PO 08/03/24 16:59 40 mg 1700 LUIS MANUEL Administration Brimonidine Tartrate 1 drops 07/05/24 13:15 07/06/24 08:38 Brimonidine Tar 0.1% 75 Drops/5 Ml Btl OP 08/04/24 13:14 1 drops BID LUIS MANUEL Administration Cetirizine HCl 10 mg 07/04/24 21:00 07/05/24 20:46 Cetirizine Hcl 10 Mg Tablet PO 08/03/24 20:59 10 mg QPM LUIS MANUEL Administration Clopidogrel Bisulfate 75 mg 07/05/24 21:00 07/05/24 20:46 Clopidogrel Bisulfate 75 Mg Tab PO 08/04/24 20:59 75 mg QPM LUIS MANUEL Administration Docusate Sodium 100 mg 07/04/24 21:00 07/06/24 08:38 Docusate Sodium 100 Mg Cap PO 08/03/24 20:59 100 mg BID LUIS MANUEL Administration Hydromorphone HCl 1 mg 07/05/24 14:30 07/05/24 23:18 Hydromorphone Inj 1 Mg/Ml Syringe IV 07/18/24 16:15 1 mg Q3H PRN Administration Pain Insulin Aspart 0 units 07/04/24 16:45 07/06/24 12:32 Insulin Aspart Per Unit Charge SC 08/03/24 16:44 15 units ACHS LUIS MANUEL Administration Protocol Insulin Glargine 14 units 07/05/24 09:00 07/06/24 08:43 Lantus Per Unit Charge SC 08/04/24 08:59 14 units QAM LUIS MANUEL Administration Levothyroxine Sodium 50 mcg 07/05/24 06:30 07/06/24 05:34 Levothyroxine Sodium 50 Mcg Tablet PO 09/13/24 06:29 50 mcg DAILYBB LUIS MANUEL Administration Metoprolol Succinate 50 mg 07/04/24 21:00 07/06/24 08:37 Metoprolol Succ 50mg Ext Rel Tab PO 08/03/24 20:59 50 mg BID LUIS MANUEL Administration Multivitamins 1 tab 07/05/24 09:00 07/06/24 08:38 Multivitamin Tab PO 08/04/24 08:59 1 tab DAILY LUIS MANUEL Administration Oxycodone HCl 5 - 10 mg 07/04/24 16:16 07/05/24 16:06 Oxycodone Hcl Ir 5 Mg Tab (Immediate Release) PO 07/18/24 16:15 10 mg Q4H PRN Administration Pain or Pre PT Polyethylene Glycol 17 gm 07/05/24 16:40 07/06/24 08:51 Polyethylene (Miralax) 17 Gm Pack PO 08/04/24 16:39 17 gm TID LUIS MANUEL Administration Sennosides 17.2 mg 07/04/24 21:00 07/05/24 20:45 Senna 8.6 Mg Tab PO 08/03/24 20:59 17.2 mg HS LUIS MANUEL Administration Timolol Maleate 1 drops 07/04/24 21:00 07/06/24 08:38 Timolol Maleate 0.25% Op Soln 5 Ml Btl OP 08/03/24 20:59 1 drops BID LUIS MANUEL Administration Urea 15 gm 07/06/24 09:55 07/06/24 11:27 Urea (Urea-Na) 15 Gm Pack PO 08/05/24 09:54 15 gm BID LUIS MANUEL Administration Vitamin D 50 mcg 07/05/24 12:00 07/06/24 12:30 Cholecalciferol 25 Mcg (1000 Units) Tab PO 08/04/24 11:59 50 mcg 1200 LUIS MANUEL Administration
--- NOTE | 2024-07-06 14:32 | Orthopedic Progress Note ---
Date of Service July 06, 2024 Assessment & Plan (1) S/P BKA (below knee amputation) unilateral: Plan: Reinforced elevation. He was accepted at [facility] however would like to go to [facility] and authorization is pending. Would like him to be out of bed sitting in a chair. Work on coughing and deep breaths. Incentive spirometry encouraged. He did have a fever last night of 38.4. His white blood cell count has increased to almost 18,000. I see no obvious source for infection at present. He had a chest x-ray which is noted and a UA which was negative. Surgical wound is benign. Will continue to monitor and encourage pulmonary toilet. He was anemic with a hemoglobin of 21 today and did receive 1 unit of packed red blood cells via the hospitalist. Continue Eliquis. Out of bed to chair with assistance. Will reassess tomorrow. Nutrition consult. Pain is well-controlled. Admission and Anticipated Discharge Date Admission Date: July 04, 2024 Subjective Feels better today. Less groggy. Pain controlled with Tylenol. He has been to the bedside and standing up but has not ambulated or been out of bed to chair. He denies diarrhea dysuria cough runny noseOr feelings of illness Physical Exam Physical Exam: Dressing changed. No drainage or erythema. Swelling is mild and appropriate. There is some bruising and petechial hemorrhage along the posterior flap. The skin edges are well-approximated and there is no drainage. No fluctuance. There is a 3 cm area of superficial blanching erythema over the anterior aspect of the knee which is present despite abundant padding underneath the splint. He is able to flex and extend the knee. Results & Data Vital Signs (Past 12 Hours) Vital Signs Temp Pulse Pulse Resp BP BP BP 07/06/24 12:52 37.4 C 69 16 134/71 07/06/24 11:52 36.9 C 68 16 128/70 07/06/24 11:21 36.8 C 67 15 130/70 07/06/24 11:07 37.3 C 67 15 117/65 07/06/24 10:47 36.8 C 07/06/24 10:47 68 14 116/61 07/06/24 07:40 37.1 C 71 18 115/63 07/06/24 05:07 37.6 C H 76 16 122/67 07/06/24 04:07 38.4 C H 77 16 130/70 Pulse Ox O2 Del Method O2 Flow Rate 07/06/24 12:52 98 0 07/06/24 11:52 98 0 07/06/24 11:21 97 0 07/06/24 11:07 98 0 07/06/24 10:47 07/06/24 10:47 98 0 07/06/24 07:40 97 Room Air 07/06/24 05:07 96 Room Air 07/06/24 04:07 94 Room Air Laboratory Results Laboratory Results WBC 17.55 K/ul (4.8-10.8) H 07/06/24 02:08 RBC 2.63 M/uL (4.70-6.10) L 07/06/24 02:08 Hgb 7.1 g/dl (14.0-18.0) L 07/06/24 08:18 Hct 20.7 % (42.0-52.0) L* 07/06/24 08:18 MCV 88.6 fL (80.0-100.0) 07/06/24 02:08 MCH 30.0 pg (25.0-34.0) 07/06/24 02:08 MCHC 33.9 g/dL (32.0-36.0) 07/06/24 02:08 RDW Std Deviation 40.4 fL (36.4-46.3) 07/06/24 02:08 RDW Coeff of Swetha 12.5 % (11.5-14.5) 07/06/24 02:08 Plt Count 331 K/uL (130-400) 07/06/24 02:08 MPV 8.5 fL (9.4-12.4) L 07/06/24 02:08 Immature Gran % (Auto) 0.7 % 07/06/24 02:08 Neut % (Auto) 81.1 % 07/06/24 02:08 Lymph % (Auto) 8.9 % 07/06/24 02:08 Mccreary % (Auto) 8.5 % 07/06/24 02:08 Eos % (Auto) 0.6 % 07/06/24 02:08 Baso % (Auto) 0.2 % 07/06/24 02:08 Neut # (Auto) 14.23 K/uL (1.40-6.50) H 07/06/24 02:08 Lymph # (Auto) 1.56 K/uL (1.20-3.40) 07/06/24 02:08 Mccreary # (Auto) 1.50 K/uL (0.11-0.59) H 07/06/24 02:08 Eos # (Auto) 0.11 K/uL (0.00-0.50) 07/06/24 02:08 Baso # (Auto) 0.03 K/uL (0.00-0.20) 07/06/24 02:08 Immature Gran # (Auto) 0.12 K/uL (0.01-0.20) 07/06/24 02:08 RBC Morphology Unremarkable 07/06/24 02:08 Sodium 126 mmol/L (136-145) L 07/06/24 08:18 Potassium 4.2 mmol/L (3.5-5.1) 07/06/24 02:08 Chloride 94 mmol/L (98-107) L 07/06/24 02:08 Carbon Dioxide 22 mmol/L (21-32) 07/06/24 02:08 Anion Gap 9 (3-11) 07/06/24 02:08 BUN 17 mg/dl (6-23) 07/06/24 02:08 Creatinine 1.03 mg/dl (0.6-1.4) 07/06/24 02:08 Est Cr Clr Drug Dosing 51.4 ml/min 07/06/24 02:08 Est GFR ( Amer) 79.7 ml/min 07/06/24 02:08 Est GFR (Non-Af Amer) 68.8 ml/min 07/06/24 02:08 BUN/Creatinine Ratio 16.5 (10-20) 07/06/24 02:08 Glucose 127 mg/dl (70-99(Fasting)) H 07/06/24 02:08 POC Glucose 319 mg/dl (70-99) H* 07/06/24 11:54 Osmolality 266 mOsm/kg (280-300) L 07/05/24 11:49 Lactate 0.8 mmol/L (0.4-2.0) 07/06/24 04:46 Calcium 8.4 mg/dl (8.6-10.3) L 07/06/24 02:08 Total Bilirubin 0.4 mg/dl (0.2-1.0) 07/06/24 02:08 Direct Bilirubin 0.1 mg/dl (0-0.2) 07/06/24 02:08 AST 39 U/L (13-39) 07/06/24 02:08 ALT 14 U/L (7-52) 07/06/24 02:08 Alkaline Phosphatase 51 U/L (34-104) 07/06/24 02:08 Total Protein 5.7 gm/dl (6.0-8.3) L 07/06/24 02:08 Albumin 3.3 gm/dl (3.4-5.0) L 07/06/24 02:08 25-OH Vitamin D Total 35.3 ng/ml (30-100) 07/05/24 11:49 Procalcitonin 0.15 ng/ml (0-0.5) 07/06/24 04:46 TSH 3.417 uIu/ml (0.300-4.500) 07/06/24 02:08 PTH Intact 152.2 pg/ml (12.0-88.0) H 07/06/24 02:08 Urine Color Yellow 07/06/24 Unknown Urine Appearance Clear (Clear) 07/06/24 Unknown Urine pH 6.0 (4.5-7.5) 07/06/24 Unknown Ur Specific Hasty 1.013 (1.000-1.030) 07/06/24 Unknown Urine Protein Trace (Negative) H 07/06/24 Unknown Urine Glucose (UA) Negative (Negative) 07/06/24 Unknown Urine Ketones Negative (Negative) 07/06/24 Unknown Urine Blood Negative (Negative) 07/06/24 Unknown Urine Nitrite Negative (Negative) 07/06/24 Unknown Urine Bilirubin Negative (Negative) 07/06/24 Unknown Urine Urobilinogen Negative (Negative) 07/06/24 Unknown Ur Leukocyte Esterase Negative (Negative) 07/06/24 Unknown Urine WBC (Auto) 0-5 /hpf (0-5) 07/06/24 Unknown Urine RBC (Auto) 0-2 /hpf (0-2) 07/06/24 Unknown U Hyaline Cast (Auto) 0-2 /lpf (0-2) 07/06/24 Unknown U Epithel Cells (Auto) 0-2 /hpf (0-2) 07/06/24 Unknown Urine Bacteria (Auto) None Seen (None Seen) 07/06/24 Unknown Urine Osmolality 379 mOsm/kg (500-800) L 07/05/24 Unknown Urine Sodium 44 mmol/L 07/05/24 Unknown Urine Potassium 33.2 mmol/L 07/05/24 Unknown Urine Chloride 53 mmol/L 07/05/24 Unknown Adenovirus (PCR) Not Detected (NotDetected) 07/06/24 04:50 B. pertussis DNA (PCR) Not Detected (NotDetected) 07/06/24 04:50 B.parapertussis DNA PCR Not Detected (NotDetected) 07/06/24 04:50 C. pneumoniae DNA (PCR) Not Detected (NotDetected) 07/06/24 04:50 Coronavirus OC43 (PCR) Not Detected (NotDetected) 07/06/24 04:50 Coronavirus HKU1 (PCR) Not Detected (NotDetected) 07/06/24 04:50 Coronavirus 229E (PCR) Not Detected (NotDetected) 07/06/24 04:50 SARS-CoV-2 (PCR) Not Detected (NotDetected) 07/06/24 04:50 Coronavirus NL63 (PCR) Not Detected (NotDetected) 07/06/24 04:50 Human Metapneumovir PCR Not Detected (NotDetected) 07/06/24 04:50 Influenza Type A (PCR) Not Detected (NotDetected) 07/06/24 04:50 Influenza Type B (PCR) Not Detected (NotDetected) 07/06/24 04:50 M. pneumoniae (PCR) Not Detected (NotDetected) 07/06/24 04:50 Parainfluenza 1 (PCR) Not Detected (NotDetected) 07/06/24 04:50 Parainfluenza 2 (PCR) Not Detected (NotDetected) 07/06/24 04:50 Parainfluenza 3 (PCR) Not Detected (NotDetected) 07/06/24 04:50 Parainfluenza 4 (PCR) Not Detected (NotDetected) 07/06/24 04:50 RSV (PCR) Not Detected (NotDetected) 07/06/24 04:50 Entero/Rhino (PCR) Not Detected (NotDetected) 07/06/24 04:50 Blood Type O Negative 07/04/24 08:54 Blood Type Recheck O Negative 07/06/24 02:08 Antibody Screen NEGATIVE 07/04/24 08:54 Crossmatch See Detail 07/04/24 08:54 Impressions Knee X-Ray 07/04/24 10:10 FL knee LT 1 or 2V CLINICAL HISTORY: LEFT BELOW KNEE AMPUTATION COMPARISON STUDY: None. FLUOROSCOPY TIME: 6 seconds FLUOROSCOPY IMAGES: Ka,r: 0.1 mGy FINDINGS: Postoperative changes consistent with a left below the knee amputation. Surgical drain is in place. IMPRESSION: Fluoroscopic assistance as above. ACT 112: Negative or not required by law. Electronically signed by: Bang Tran M.D. 07/04/2024 2:59 PM Chest X-Ray 07/06/24 03:05 XR chest 1V portable CLINICAL HISTORY: hyponatremia COMPARISON STUDY: No previous studies for comparison. FINDINGS: Status post median sternotomy. Lung volumes are normal. Patchy left midlung opacities are present. There are also linear left basilar densities. There is no pneumothorax or pleural effusion. Cardiac size is normal. Mediastinal contours are normal. There is no evidence for pulmonary edema. Calcific tendinitis of the left rotator cuff is incidentally noted. IMPRESSION: Patchy left midlung airspace opacities suggestive of pneumonia. However, radiographic follow-up to ensure resolution and exclude the possibility of an underlying pulmonary lesion is recommended. ACT 112: Positive. There are findings on this exam that require communication between the performing entity and the patient following Patient Test Result Information Act ([place] Act 112) guidelines. Electronically signed by: Jimenez Clinton M.D. 07/06/2024 6:30 AM
[2024-07-06] MEDS: bisacodyL 10 MG SUPP PR PRN (14:43)
[2024-07-06 15:56] LABS: Hematocrit (blood only) 25.4 % (42.0-52.0); Hemoglobin 8.8 g/dl (14.0-18.0)
[2024-07-06] MEDS: LANTUS PER UNIT CHARGE SC ONE (21:16)
[2024-07-07 06:27] LABS: Hematocrit (blood only) 25.9 % (42.0-52.0); Mean Corpuscular Hemoglobin 29.4 pg (25.0-34.0); Mean Corpuscular Hgb Conc 34.7 g/dL (32.0-36.0); Mean Corpuscular Volume 84.6 fL (80.0-100.0); Mean Platelet Volume 9.1 fL (9.4-12.4); Platelet Count 344 K/uL (130-400); RDW Coefficient of Variation 13.4 % (11.5-14.5); RDW Standard Deviation 41.5 fL (36.4-46.3); Red Blood Count 3.06 M/uL (4.70-6.10); White Blood Count 15.78 K/ul (4.8-10.8)
[2024-07-07 07:01] LABS: BUN Creatinine Ratio 31.2 (10-20); Calcium 8.6 mg/dl (8.6-10.3); Creatinine Clr Calc Pharmacy 48.6 ml/min; Est GFR (African American) 74.4 ml/min; Est GFR (Non-African American) 64.2 ml/min; Potassium 4.4 mmol/L (3.5-5.1)
--- NOTE | 2024-07-07 07:23 | Pharmacy Report ---
Pharmacy Glycemic Short Note 2 - Date of Service July 07, 2024 - Glycemic Short BSG Results (Last 24 hours): 07/06/24 07/06/24 07/06/24 07:36 11:52 11:54 Glucose POC Glucose 220 H 303 H* 319 H* 07/06/24 07/06/24 07/07/24 16:33 20:46 05:32 Glucose 273 H POC Glucose 194 H 130 H OUTPATIENT ANTIDIABETIC REGIMEN: * Lantus 14 units Qam, Lispro 3 units breakfast, 3-5 units lunch, 4-10 units dinner ASSESSMENT: 07/07 * POD3, patient received 41 units of insulin yesterday, 14 units basal, blood sugar was rising with meals - tightened CF/CR - and blood sugars improved. Continue. * Fasting blood sugar up to 273mg/dl this morning (from 130mg/dl at HS), increase basal at this time. 07/05 * Patient is s/p surgery, POD 1. Patient type 1 diabetic, pharmacy consulted for glycemic management. Fasting BSG this AM 132 mg/dL - diet ordered this Am, will resume home basal insulin this morning. Will utilize weight based stress 2 for NovoLog. PLAN FOR INPATIENT GLYCEMIC CONTROL: * Basal insulin * Lantus 20 units daily * Bolus insulin * NovoLog per scale ACHS or Q6hrs while NPO * Goal Range: Low 110 mg/dL - High 140 mg/dL * Correction Factor: 25 mg/dL/unit * Nutritional / Prandial insulin per carb ratio of 1 unit per 7 grams CHO consumed
[2024-07-07] MEDS: LANTUS PER UNIT CHARGE SC SCH (08:07)
--- NOTE | 2024-07-07 10:02 | Orthopedic Progress Note ---
Date of Service July 07, 2024 Assessment & Plan (1) S/P BKA (below knee amputation) unilateral: Plan: Postop day 3-status post left BKA with Dr. Dominguez Continue out of bed with PT and OT. Transfers to chair with assistance. Encouraged range of motion of his left knee and hip as tolerated. Encouraged ice and elevation of the left leg to reduce swelling and help with pain. White blood cell count continues to be elevated but better than yesterday. No evident source of infection. Hemoglobin is 9 status post 1 unit of packed red blood cells Continues to be hyponatremic but improved from yesterday. Will await medicine's eval to see if he could potentially be discharged today or not. Afebrile. Attempted to apply Tubigrip to the left leg which she did not tolerate. Will send this with him to [facility]. Patient understands and agrees with the plan. Will discuss findings with Dr. Dominguez. Will continue to follow. Plan is to discharge to [facility] when medically stable. Admission and Anticipated Discharge Date Admission Date: July 04, 2024 Subjective Feeling good today. States that he is doing better today than yesterday due to his 2 bowel movements. He has been out of bed transferring to a chair. He has only been on Tylenol for pain medication. He has been applying ice and keeping his leg elevated. He states that he has not had much time to do exercises yet this morning. Physical Exam Musculoskeletal: Exam of his left lower extremity: His dressings are clean, dry and intact. Not removed today. He can do active extension and flexion of his left knee. Tolerates logrolling of his hip. He was sitting at the side of the bed upon exam. I attempted to put a Tubigrip on his left leg but it was a little too tight and uncomfortable for him so we removed it and will send it with him to rehab. Results & Data Vital Signs (Past 12 Hours) Vital Signs Temp Pulse Pulse Resp BP BP Pulse Ox 07/07/24 07:56 36.8 C 67 17 152/66 H 97 07/07/24 07:19 36.8 C 70 18 149/61 H 97 O2 Del Method 07/07/24 07:56 Room Air 07/07/24 07:19 Room Air Laboratory Results 07/07/24 07/07/24 07/07/24 Range/Units 07:45 07:43 05:32 WBC 15.78 H (4.8-10.8) K/ul RBC 3.06 L (4.70-6.10) M/uL Hgb 9.0 L (14.0-18.0) g/dl Hct 25.9 L (42.0-52.0) % MCV 84.6 (80.0-100.0) fL MCH 29.4 (25.0-34.0) pg MCHC 34.7 (32.0-36.0) g/dL RDW Std Deviation 41.5 (36.4-46.3) fL RDW Coeff of Swetha 13.4 (11.5-14.5) % Plt Count 344 (130-400) K/uL MPV 9.1 L (9.4-12.4) fL Sodium 128 L (136-145) mmol/L Potassium 4.4 (3.5-5.1) mmol/L Chloride 94 L (98-107) mmol/L Carbon Dioxide 28 (21-32) mmol/L Anion Gap 6 (3-11) BUN 34 H (6-23) mg/dl Creatinine 1.09 (0.6-1.4) mg/dl Est Cr Clr Drug Dosing 48.6 ml/min Est GFR ( Amer) 74.4 ml/min Est GFR (Non-Af Amer) 64.2 ml/min BUN/Creatinine Ratio 31.2 H (10-20) Glucose 273 H (70-99(Fasting)) mg/dl POC Glucose 296 H 315 H* (70-99) mg/dl Calcium 8.6 (8.6-10.3) mg/dl Blood Type Antibody Screen Crossmatch 07/06/24 07/06/24 07/06/24 Range/Units 20:46 16:33 15:28 WBC (4.8-10.8) K/ul RBC (4.70-6.10) M/uL Hgb 8.8 L (14.0-18.0) g/dl Hct 25.4 L (42.0-52.0) % MCV (80.0-100.0) fL MCH (25.0-34.0) pg MCHC (32.0-36.0) g/dL RDW Std Deviation (36.4-46.3) fL RDW Coeff of Swetha (11.5-14.5) % Plt Count (130-400) K/uL MPV (9.4-12.4) fL Sodium (136-145) mmol/L Potassium (3.5-5.1) mmol/L Chloride (98-107) mmol/L Carbon Dioxide (21-32) mmol/L Anion Gap (3-11) BUN (6-23) mg/dl Creatinine (0.6-1.4) mg/dl Est Cr Clr Drug Dosing ml/min Est GFR ( Amer) ml/min Est GFR (Non-Af Amer) ml/min BUN/Creatinine Ratio (10-20) Glucose (70-99(Fasting)) mg/dl POC Glucose 130 H 194 H (70-99) mg/dl Calcium (8.6-10.3) mg/dl Blood Type Antibody Screen Crossmatch 07/06/24 07/06/24 07/04/24 Range/Units 11:54 11:52 08:54 WBC (4.8-10.8) K/ul RBC (4.70-6.10) M/uL Hgb (14.0-18.0) g/dl Hct (42.0-52.0) % MCV (80.0-100.0) fL MCH (25.0-34.0) pg MCHC (32.0-36.0) g/dL RDW Std Deviation (36.4-46.3) fL RDW Coeff of Swetha (11.5-14.5) % Plt Count (130-400) K/uL MPV (9.4-12.4) fL Sodium (136-145) mmol/L Potassium (3.5-5.1) mmol/L Chloride (98-107) mmol/L Carbon Dioxide (21-32) mmol/L Anion Gap (3-11) BUN (6-23) mg/dl Creatinine (0.6-1.4) mg/dl Est Cr Clr Drug Dosing ml/min Est GFR ( Amer) ml/min Est GFR (Non-Af Amer) ml/min BUN/Creatinine Ratio (10-20) Glucose (70-99(Fasting)) mg/dl POC Glucose 319 H* 303 H* (70-99) mg/dl Calcium (8.6-10.3) mg/dl Blood Type O Negative Antibody Screen NEGATIVE Crossmatch See Detail
--- NOTE | 2024-07-07 10:28 | Nephrology Progress Note ---
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 Urine osmolality was 379 and urine sodium of 44. Patient reports chronic hyponatremia. Sodium is 128 today. Will continue him on urea 15 g twice daily. Okay to monitor sodium once daily. From renal standpoint, patient can be discharged to rehab. He will continue urea 15 g twice daily. After rehab patient can be discharged on urea 15 g daily as an outpatient. He will need renal follow-up after discharge from rehab (2) S/P BKA (below knee amputation) unilateral: Plan: Please manage pain aggressively which is a known trigger for SIADH. Admission and Anticipated Discharge Date Admission Date: July 04, 2024 Subjective Seen for hyponatremia. He feels better today. No shortness of breath. Sodium uptrending to 128. Review of Systems 2 Review of Systems: All other systems were reviewed and negative except as noted in HPI Physical Exam 2 Physical Exam: General exam: Appears comfortable, no acute distress HEENT: Pupils are equal and reactive to light Neck: No JVD, neck is supple trachea is midline Respiratory system: Clear breath sounds bilaterally. Gastrointestinal: Abdomen is soft, non distended, non tender, bowel sounds are present CVS: Regular rate and rhythm. No murmurs, rubs or gallops Musculoskeletal: No joint or muscle tenderness Extremities: Non tender, no edema, peripheral pulses are present Neuro: Oriented, no tremors, no focal neurological deficits Skin: No rashes Results & Data Vital Signs (Past 12 Hours) Vital Signs Temp Pulse Pulse Resp BP BP Pulse Ox 07/07/24 07:56 36.8 C 67 17 152/66 H 97 07/07/24 07:19 36.8 C 70 18 149/61 H 97 O2 Del Method 07/07/24 07:56 Room Air 07/07/24 07:19 Room Air Laboratory Results 07/07/24 05:32 07/07/24 05:32 WBC 15.78 H RBC 3.06 L MCV 84.6 MCH 29.4 MCHC 34.7 RDW Std Deviation 41.5 RDW Coeff of Swetha 13.4 Plt Count 344 MPV 9.1 L
[2024-07-07 12:12] VITALS: O2SAT 99
--- NOTE | 2024-07-07 12:23 | Hospitalist Progress Note ---
Date of Service July 07, 2024 Assessment & Plan (1) S/P BKA (below knee amputation) unilateral: (2) CAD (coronary atherosclerotic disease): (3) PAD (peripheral artery disease): (4) Type 1 diabetes mellitus with complications: Plan: Mr. Gonzalez is a 79-year-old male with history of coronary disease/CABG, aortic valve stenosis, peripheral vascular disease, carotid stenosis, diabetes type 1, hypertension, CKD stage III, hypothyroidism, BPH, horseshoe kidney for whom [facility] is consulted for post op co management for BKA. Labs notable for hyponatremia, down to 127. Patient reports fatigue and exhaustion but no neuro deficits noted. Reports history of hyponatremia, but unable to see any visits or interventions noted. Labs c/w SIADH. Nephrology starting urea BID to continue through his stay at rehab with discharge plans for once daily Patient can resume all other home medications as prescribed. #Acute on chronic anemia, 2/2 postoperative losses Baseline seems to range in 9-10 recently Follow heme/onc in 2022 2/2 anemia, thought to be 2/2 anemia chronic disease/CKD Trend CBC, transfuse < 8.0 Given history of PAD, CKD, CAD, will pursue transfusion goal > 8.0; therefore s/p 1 UPRBC 07/06 for hgb 7.1 Robust response to transfusion #Status post BKA, left 07/04 #Nonhealing Diabetic foot ulcer Stable overall, performed by Dr. Dominguez Pain control, DVT prophylaxis per orthopedic service PT/OT, d/c to rehab bowel regimen #Acute hyponatremia 2/2 SIADH as low as 126 Serum osmo and urine studies suggestive of SIADH Trend BMP daily per nephrology Will avoid FR and encourage PO until results return given recent poor po intake Nephrology consult -UREA bid while at rehab and daily BMP for sodium monitoring -Discharge from rehab with daily urea -Follow up post rehab with nephrology #CAD/CABG #Peripheral Arterial disease #Carotid stenosis #Hypertension Follows with vascular service Dr. Devan Farr On apixaban 5 mg twice a day and Plavix 75 mg daily-resumed per Ortho Continue metoprolol XL, Lipitor Continue amlodipine #Diabetes type 1 Usually on insulin lispro and Lantus resume insulin as prescribed on d/c #CKD stage III Stable Monitor labs #Hypothyroidism Continue levothyroxine 50 mcg daily DVT prophylaxis apixaban 5 mg p.o. twice a day Thank you for this consultation. We will follow the patient with you during their hospital stay. You can reach a member of the [facility] Hospitalist Team 14/06 via pager @ [phone]. Admission and Anticipated Discharge Date Admission Date: July 04, 2024 Subjective NAEO Reports feeling much improved overall and denies any acute concerns Denies any neuro changes or headache Reports bowel movement last evening Physical Exam Constitutional: WD/WN, vitals as above Respiratory: normal respiratory effort, lungs clear to auscultation Cardiovascular: RRR, no murmur, no edema Gastrointestinal (Abdomen): normal bowel sounds, soft, nontender, no hepatosplenomegaly Musculoskeletal: left stump with tish bandage CDI Results & Data Results & Data Vital Signs (Past 12 Hours) Vital Signs Temp Pulse Pulse Resp BP BP Pulse Ox 07/07/24 12:10 36.8 C 72 16 134/56 L 99 07/07/24 07:56 36.8 C 67 17 152/66 H 97 07/07/24 07:19 36.8 C 70 18 149/61 H 97 O2 Del Method 07/07/24 12:10 Room Air 07/07/24 07:56 Room Air 07/07/24 07:19 Room Air Laboratory Results Short CBC 07/06/24 07/07/24 Range/Units 15:28 05:32 WBC 15.78 H (4.8-10.8) K/ul Hgb 8.8 L 9.0 L (14.0-18.0) g/dl Hct 25.4 L 25.9 L (42.0-52.0) % Plt Count 344 (130-400) K/uL BMP 07/07/24 05:32 Sodium 128 L Potassium 4.4 Chloride 94 L Carbon Dioxide 28 BUN 34 H Creatinine 1.09 Glucose 273 H Calcium 8.6 Medications Administered Home Medications Medication Instructions Recorded Confirmed Last Taken atorvastatin 40 mg tablet (Lipitor) 40 mg PO 1700 08/24/19 07/04/24 07/03/24 18:00 blood sugar diagnostic (OneTouch #10 ea 08/24/19 06/27/24 Unknown Ultra Blue Test Strip) cholecalciferol (vitamin D3) 50 2,000 units PO 1200 #90 caps 08/24/19 07/04/24 07/03/24 12:00 mcg (2,000 unit) capsule coenzyme Q10 100 mg capsule 100 mg PO QPM 08/24/19 07/04/24 07/03/24 18:00 insulin syringe-needle U-100 0.3 #10 ea 08/24/19 06/27/24 Unknown mL 31 gauge x 5/16" (BD Insulin Syringe Ultra-Fine) levothyroxine 50 mcg tablet 50 mcg PO QAM #90 tabs 08/24/19 07/04/24 07/04/24 07:30 ktmhjvgi-xtnozxzk-miqfu acid 400 1 tab PO DAILY 08/24/19 07/04/24 07/03/24 08:00 mcg-vit K 20 mcg-lycop 300 mcg tablet (One-A-Day Men's Multivitamin) pen needle, diabetic 32 gauge x #10 ea 08/24/19 06/27/24 Unknown 5/32" (BD Ultra-Fine Rupal Pen Needle) glucagon (human recombinant) 1 mg 1 mg subcut Q20M PRN hypoglycemia 09/15/19 07/04/24 Unknown solution for injection (Glucagon #1 ea Emergency Kit) alendronate 35 mg tablet 35 mg PO WK 05/22/24 07/04/24 07/02/24 cetirizine 10 mg tablet (Allergy 10 mg PO QPM 05/22/24 07/04/24 07/03/24 18:00 Relief (cetirizine)) insulin glargine 100 unit/mL 14 unit subcut QAM 05/22/24 07/04/24 07/04/24 07:30 subcutaneous solution (Lantus U-100 Insulin) insulin lispro 100 unit/mL See Rx Instructions subcut .COMPLEX 05/22/24 07/04/24 07/03/24 18:00 subcutaneous pen (Humalog KwikPen (U-100) Insulin) timolol 0.25 % eye drops 1 drp ophthalmic (eye) BID 05/22/24 07/04/24 07/04/24 07:30 apixaban 5 mg tablet (Eliquis) 5 mg PO BID #60 tabs 06/06/24 07/04/24 06/30/24 doxycycline hyclate 100 mg capsule 100 mg PO QPM 06/20/24 07/04/24 07/03/24 12:00 brimonidine 0.1 % eye drops 1 drp ophthalmic (eye) BID 06/27/24 07/04/24 07/04/24 07:30 (Alphagan P) gabapentin 300 mg capsule 300 mg PO .COMPLEX #90 caps 06/27/24 07/04/24 Unknown tramadol 50 mg tablet 100 mg (2 x 50 mg) PO .BID-TID PRN 06/27/24 07/04/24 Unknown pain #50 tabs amlodipine 2.5 mg tablet 2.5 mg PO 1200 06/29/24 07/04/24 07/03/24 12:00 clopidogrel 75 mg tablet 75 mg PO QPM 06/29/24 07/04/24 06/30/24 metoprolol succinate 50 mg 50 mg PO BID 06/29/24 07/04/24 07/04/24 07:30 tablet,extended release 24 hr urea 15 gram oral powder packet 15 g PO BID #32 ea 07/07/24 Unknown (Ure-Na) Active Medications Generic Name Dose Route Start Last Admin Trade Name Albino PRN Reason Stop Dose Admin Acetaminophen 1,000 mg 07/06/24 13:00 07/07/24 05:38 Acetaminophen 500 Mg Tab PO 08/05/24 12:59 1,000 mg Q8H LUIS MANUEL Administration Amlodipine Besylate 2.5 mg 07/05/24 12:00 07/07/24 12:17 Amlodipine Besylate 5 Mg Tab PO 08/04/24 11:59 2.5 mg 1200 LUIS MANUEL Administration Apixaban 5 mg 07/05/24 09:00 07/07/24 07:48 Apixaban 5 Mg Tablet PO 08/04/24 08:59 5 mg BID LUIS MANUEL Administration Atorvastatin Calcium 40 mg 07/04/24 17:00 07/06/24 17:44 Atorvastatin 40 Mg Tab PO 08/03/24 16:59 40 mg 1700 LUIS MANUEL Administration Bisacodyl 10 mg 07/04/24 16:16 07/06/24 14:43 Bisacodyl 10 Mg Supp [place] 08/03/24 16:15 10 mg DAILY PRN Administration Constipation Brimonidine Tartrate 1 drops 07/05/24 13:15 07/07/24 07:49 Brimonidine Tar 0.1% 75 Drops/5 Ml Btl OP 08/04/24 13:14 1 drops BID LUIS MANUEL Administration Cetirizine HCl 10 mg 07/04/24 21:00 07/06/24 21:22 Cetirizine Hcl 10 Mg Tablet PO 08/03/24 20:59 10 mg QPM LUIS MANUEL Administration Clopidogrel Bisulfate 75 mg 07/05/24 21:00 07/06/24 21:18 Clopidogrel Bisulfate 75 Mg Tab PO 08/04/24 20:59 75 mg QPM LUIS MANUEL Administration Docusate Sodium 100 mg 07/04/24 21:00 07/07/24 07:48 Docusate Sodium 100 Mg Cap PO 08/03/24 20:59 100 mg BID LUIS MANUEL Administration Hydromorphone HCl 1 mg 07/05/24 14:30 07/05/24 23:18 Hydromorphone Inj 1 Mg/Ml Syringe IV 07/18/24 16:15 1 mg Q3H PRN Administration Pain Insulin Aspart 0 units 07/04/24 16:45 07/07/24 12:16 Insulin Aspart Per Unit Charge [place] 08/03/24 16:44 8 units ACHS LUIS MANUEL Administration Protocol Insulin Glargine 20 units 07/07/24 09:00 07/07/24 08:07 Lantus Per Unit Charge [place] 08/06/24 08:59 20 units QAM LUIS MANUEL Administration Levothyroxine Sodium 50 mcg 07/05/24 06:30 07/07/24 05:38 Levothyroxine Sodium 50 Mcg Tablet PO 08/04/24 06:29 50 mcg DAILYBB LUIS MANUEL Administration Metoprolol Succinate 50 mg 07/04/24 21:00 07/07/24 07:48 Metoprolol Succ 50mg Ext Rel Tab PO 08/03/24 20:59 50 mg BID LUIS MANUEL Administration Multivitamins 1 tab 07/05/24 09:00 07/07/24 07:47 Multivitamin Tab PO 08/04/24 08:59 1 tab DAILY LUIS MANUEL Administration Oxycodone HCl 5 - 10 mg 07/04/24 16:16 07/05/24 16:06 Oxycodone Hcl Ir 5 Mg Tab (Immediate Release) PO 07/18/24 16:15 10 mg Q4H PRN Administration Pain or Pre PT Polyethylene Glycol 17 gm 07/05/24 16:40 07/07/24 07:47 Polyethylene (Miralax) 17 Gm Pack PO 08/04/24 16:39 17 gm TID LUIS MANUEL Administration Sennosides 17.2 mg 07/04/24 21:00 07/06/24 21:18 Senna 8.6 Mg Tab PO 08/03/24 20:59 17.2 mg HS LUIS MANUEL Administration Timolol Maleate 1 drops 07/04/24 21:00 07/07/24 08:59 Timolol Maleate 0.25% Op Soln 5 Ml Btl OP 08/03/24 20:59 1 drops BID LUIS MANUEL Administration Urea 15 gm 07/06/24 09:55 07/07/24 07:47 Urea (Urea-Na) 15 Gm Pack PO 08/05/24 09:54 15 gm BID LUIS MANUEL Administration Vitamin D 50 mcg 07/05/24 12:00 07/07/24 12:16 Cholecalciferol 25 Mcg (1000 Units) Tab PO 08/04/24 11:59 50 mcg 1200 LUIS MANUEL Administration
[2024-07-07 13:15] VITALS: BP 152/68; PULSE 76; RESP 18; TEMP 98.1
--- NOTE | 2024-07-07 13:44 | Discharge Summary ---
Date of Service July 07, 2024 Discharge Data Consultations 07/04/24 16:16 Consult Hospitalist Routine 07/05/24 16:37 Consult Nephrology Routine Procedures Performed Operation Date: 07/04/24 10:10 Actual Procedures p Left Below Knee Amputation(Left) - Marquis Dominguez MD Hospital Course (1) S/P BKA (below knee amputation) unilateral: Patient was admitted to [facility] after undergoing a left below-knee amputation with Dr. Dominguez on July 04, 2024. His surgery was performed with general anesthesia. He tolerated the procedure well without any intraoperative complications. He was given 2 g of IV Ancef for surgical prophylaxis which was continued for 24 hours after his procedure. He was also given 1 g of IV TXA which was then repeated 6 hours after his procedure. After surgery he was allowed out of bed, nonweightbearing left lower extremity with assistance to a chair. Physical therapy and Occupational Therapy consults were placed. Hospitalist consult was placed for management of his chronic medical conditions during his inpatient stay. A glycemic control consult was also placed for management of his type I diabetes. He was given a carb controlled diet. His home medications were continued. His Eliquis 5 mg p.o. twice daily was resumed and his Plavix restarted on postoperative day 1. He did have a splint on the left leg for 2 days after surgery. On postoperative day 2 his dressings were changed and his incision was checked. His incision was clean, dry and intact and new dressings were applied. He did have a little erythema on the top of his kneecap but it was blanchable with no open wounds. He was encouraged to do range of motion of the knee and hip as tolerated. Pain medication was provided and he did require oxycodone on postoperative day 1 but since postoperative day 2 has been taking oral Tylenol without significant pain. He was hyponatremic prior to surgery which continued to develop during his inpatient stay. Nephrology consult was placed. They recommended daily sodium checks as well as urea 15 mg twice a day. This will be continued as an outpa tient. He did develop a low-grade temperature on postoperative day 1 with no source evident and an elevation of his white blood cell count. A CBC was checked daily and his white blood cell count started to trend down on postoperative day 3. He had a normal chest x-ray as well as urinalysis. He was encouraged to use his disbanded spirometer as atelectasis was most likely cause. His incision showed no evidence of any type of infection. On postoperative day 2 his hemoglobin was 7.1 and he was given 1 unit of packed red blood cells. He felt significantly better after that unit of blood was given and his hemoglobin stabilized at 9. Patient has scheduled follow-up in our office next week for dressing change. Discharge instructions were reviewed with the patient. Case management was involved for disposition needs and he was initially approved for [facility] rehab but due to the distance from his he wished to go to [facility]. He has been approved by [facility] through his insurance and bed is available. He was discharged to [facility] in stable condition on July 07, 2024. Discharge instructions were reviewed including orthopedic and nephrology recommendations. (2) Hyponatremia:
== END 2024-07-07 15:45 | DRG 617 ==
LOC: ASU 08:28 → 3E 15:03

== ENCOUNTER 2024-07-25 12:53 | Inpatient (IN) ==
[2024-07-25] MEDS ORDERED: diphenhydrAMINE 50 MG/ML VIAL IV PRN (13:07)
[2024-07-25] MEDS ORDERED: ALUMINUM/MAGNESIUM SUSP 30 ML UDC PO PRN (13:07)
[2024-07-25] MEDS ORDERED: ACETAMINOPHEN 325 MG TAB PO PRN (13:07)
[2024-07-25] MEDS ORDERED: ONDANSETRON INJ 2 MG/ML 2 ML VIAL IV PRN (13:07)
[2024-07-25] MEDS ORDERED: PHARMACY GLYCEMIC MGMT CONSULT PRN (13:18)
[2024-07-25] MEDS ORDERED: VANCOMYCIN HCL 1,250 MG in SODIUM CHLORIDE 0.9% 500 ML IV ONE (13:18)
[2024-07-25] MEDS ORDERED: VANCOMYCIN CONSULT ACTIVE PRN (13:18)
--- NOTE | 2024-07-25 13:21 | Consultation ---
Date of Consultation July 25, 2024 History of Present Illness Attending Physician: Marquis Dominguez MD History of Present Illness This is a 79yo M with a PMH of coronary disease/CABG, aortic valve stenosis, peripheral vascular disease, carotid stenosis, diabetes type 1, hypertension, CKD stage III, hypothyroidism, BPH, horseshoe kidney, recent left BKA complicated by postop infection presents with Allergies Allergy/AdvReac Type Severity Reaction Status Date / Time amoxicillin [From Augmentin] AdvReac Severe Vomiting Verified 07/04/24 09:10 clavulanic acid AdvReac Severe Vomiting Verified 07/04/24 09:10 [From Augmentin] codeine AdvReac Severe Vomiting Verified 07/04/24 09:10 sulfamethoxazole AdvReac Severe Vomiting Verified 07/04/24 09:10 [From Bactrim] trimethoprim [From Bactrim] AdvReac Severe Vomiting Verified 07/04/24 09:10 Home Medications Medication Instructions Recorded Confirmed Type atorvastatin 40 mg tablet (Lipitor) 40 mg PO 1700 08/24/19 07/04/24 History blood sugar diagnostic (OneTouch #10 ea 08/24/19 06/27/24 History Ultra Blue Test Strip) cholecalciferol (vitamin D3) 50 2,000 units PO 1200 #90 caps 08/24/19 07/04/24 History mcg (2,000 unit) capsule coenzyme Q10 100 mg capsule 100 mg PO QPM 08/24/19 07/04/24 History insulin syringe-needle U-100 0.3 #10 ea 08/24/19 06/27/24 History mL 31 gauge x 5/16" (BD Insulin Syringe Ultra-Fine) levothyroxine 50 mcg tablet 50 mcg PO QAM #90 tabs 08/24/19 07/04/24 History iklitgof-ubkqmjbb-tazea acid 400 1 tab PO DAILY 08/24/19 07/04/24 History mcg-vit K 20 mcg-lycop 300 mcg tablet (One-A-Day Men's Multivitamin) pen needle, diabetic 32 gauge x #10 ea 08/24/19 06/27/24 History 5/32" (BD Ultra-Fine Rupal Pen Needle) glucagon (human recombinant) 1 mg 1 mg subcut Q20M PRN hypoglycemia 09/15/19 07/04/24 Rx solution for injection (Glucagon #1 ea Emergency Kit) alendronate 35 mg tablet 35 mg PO WK 05/22/24 07/04/24 History cetirizine 10 mg tablet (Allergy 10 mg PO QPM 05/22/24 07/04/24 History Relief (cetirizine)) insulin glargine 100 unit/mL 14 unit subcut QAM 05/22/24 07/04/24 History subcutaneous solution (Lantus U-100 Insulin) insulin lispro 100 unit/mL See Rx Instructions subcut .COMPLEX 05/22/24 07/04/24 History subcutaneous pen (Humalog KwikPen (U-100) Insulin) timolol 0.25 % eye drops 1 drp ophthalmic (eye) BID 05/22/24 07/04/24 History apixaban 5 mg tablet (Eliquis) 5 mg PO BID #60 tabs 06/06/24 07/04/24 Rx brimonidine 0.1 % eye drops 1 drp ophthalmic (eye) BID 06/27/24 07/04/24 History (Alphagan P) gabapentin 300 mg capsule 300 mg PO .COMPLEX #90 caps 06/27/24 07/04/24 Rx tramadol 50 mg tablet 100 mg (2 x 50 mg) PO .BID-TID PRN 06/27/24 07/04/24 Rx pain #50 tabs amlodipine 2.5 mg tablet 2.5 mg PO 1200 06/29/24 07/04/24 History clopidogrel 75 mg tablet 75 mg PO QPM 06/29/24 07/04/24 History metoprolol succinate 50 mg 50 mg PO BID 06/29/24 07/04/24 History tablet,extended release 24 hr acetaminophen 500 mg tablet 1,000 mg (2 x 500 mg) PO Q8H PRN 07/07/24 Rx (Tylenol Extra Strength) pain #30 tabs urea 15 gram oral powder packet 15 g PO BID #32 ea 07/07/24 Rx (Ure-Na) Patient History Medical History Amputation of toe of right foot partial big toe amputation CAD (coronary artery disease) Chronic kidney disease stage 3 Glaucoma Ashlie thyroiditis per medical record, pt unaware History of flexible sigmoidoscopy Hyperlipidemia Hypertension Hypothyroidism Necrosis left foot toes and base of foot -> reason for the doxycycline prophylactic treatment On anticoagulant therapy preventative treatment for a clot that developed during patient's angiogram at [facility] 05/2024 Osteopenia Proliferative diabetic retinopathy PVD (peripheral vascular disease) S/P angiogram of extremity left leg (05/2024) at [facility] with Dr. Farr left leg (11/2023) [facility] Type 1 diabetes Surgical History History of cardiac cath (09/2003) at [facility]. no stents History of cataract surgery bilateral History of colonoscopy Hx of CABG (10/11/03) quadruple bypass at [facility] S/P eye surgery retinopexy bilateral laser surgery Family History Father Gout Other No family history of adverse response to anesthesia Social History Smoking Status: Never smoker Second Hand Exposure: No; Do You Dip or Chew Tobacco: No; Hx Alcohol Use: Yes Hx Substance Use: No Preferred Language: Indonesian Communication Ability: Effective Pull Up Hand Required: No Beliefs That Will Affect Care: None Current Living Situation: Spouse Feels Safe at Home: Yes Assistive Devices: Cane and Walker
--- NOTE | 2024-07-25 13:41 | History & Physical Report ---
Date of Service July 25, 2024 Assessment & Plan (1) Post-operative infection: Plan: Surgical intervention options were discussed with the patient. He would like to proceed with irrigation and debridement, and possible revision of his left below-knee amputation. He will be made n.p.o. after midnight. He already took his Eliquis and Plavix this morning. Evening doses [facility] be held[facility]. Pharmacy will be consulted for glycemic management given his insulin-dependent diabetes. I will also speak with Dr. Elias regarding his anticoagulation status, given his last doses of Plavix and Eliquis. Bedrest tonight. He will be a direct admission at this time to the orthopedic service. IV vancomycin and cefepime have been ordered. History of Present Illness Chief Complaint: Left below-knee amputation infection Primary Care Provider: Louisa Quiroga DO This 79-year-old male presented to the office this morning, for reevaluation of his left below-knee amputation. The patient had surgery 3 weeks ago. He was initially doing well in his recovery. Over the weekend, he fell while doing a transfer from bed to chair. He landed on his right knee and left stump. He was initially seen at the ED and some swelling and bruising was noted. He presented to the office today for reevaluation. He denies any fevers or chills. He denies any redness, streaking, or increasing pain. Upon removal of the dressings, there was concern for significant infection in his stump. It is draining at this time. Cultures were obtained. Recommendation for admission and irrigation and debridement with possible revision of his amputation was discussed. He is in agreement. Direct admission will be performed at this time. The patient states he did take his morning dose of Eliquis and Plavix. Allergies Allergy/AdvReac Type Severity Reaction Status Date / Time amoxicillin [From Augmentin] AdvReac Severe Vomiting Verified 07/04/24 09:10 clavulanic acid AdvReac Severe Vomiting Verified 07/04/24 09:10 [From Augmentin] codeine AdvReac Severe Vomiting Verified 07/04/24 09:10 sulfamethoxazole AdvReac Severe Vomiting Verified 07/04/24 09:10 [From Bactrim] trimethoprim [From Bactrim] AdvReac Severe Vomiting Verified 07/04/24 09:10 Home Medications Medication Instructions Recorded Confirmed Type atorvastatin 40 mg tablet (Lipitor) 40 mg PO 1700 08/24/19 07/04/24 History blood sugar diagnostic (OneTouch #10 ea 08/24/19 06/27/24 History Ultra Blue Test Strip) cholecalciferol (vitamin D3) 50 2,000 units PO 1200 #90 caps 08/24/19 07/04/24 History mcg (2,000 unit) capsule coenzyme Q10 100 mg capsule 100 mg PO QPM 08/24/19 07/04/24 History insulin syringe-needle U-100 0.3 #10 ea 08/24/19 06/27/24 History mL 31 gauge x 5/16" (BD Insulin Syringe Ultra-Fine) levothyroxine 50 mcg tablet 50 mcg PO QAM #90 tabs 08/24/19 07/04/24 History bgahnsct-rfkvzhpn-idyxz acid 400 1 tab PO DAILY 08/24/19 07/04/24 History mcg-vit K 20 mcg-lycop 300 mcg tablet (One-A-Day Men's Multivitamin) pen needle, diabetic 32 gauge x #10 ea 08/24/19 06/27/24 History 5/32" (BD Ultra-Fine Rupal Pen Needle) glucagon (human recombinant) 1 mg 1 mg subcut Q20M PRN hypoglycemia 09/15/19 07/04/24 Rx solution for injection (Glucagon #1 ea Emergency Kit) alendronate 35 mg tablet 35 mg PO WK 05/22/24 07/04/24 History cetirizine 10 mg tablet (Allergy 10 mg PO QPM 05/22/24 07/04/24 History Relief (cetirizine)) insulin glargine 100 unit/mL 14 unit subcut QAM 05/22/24 07/04/24 History subcutaneous solution (Lantus U-100 Insulin) insulin lispro 100 unit/mL See Rx Instructions subcut .COMPLEX 05/22/24 07/04/24 History subcutaneous pen (Humalog KwikPen (U-100) Insulin) timolol 0.25 % eye drops 1 drp ophthalmic (eye) BID 05/22/24 07/04/24 History apixaban 5 mg tablet (Eliquis) 5 mg PO BID #60 tabs 06/06/24 07/04/24 Rx brimonidine 0.1 % eye drops 1 drp ophthalmic (eye) BID 06/27/24 07/04/24 History (Alphagan P) gabapentin 300 mg capsule 300 mg PO .COMPLEX #90 caps 06/27/24 07/04/24 Rx tramadol 50 mg tablet 100 mg (2 x 50 mg) PO .BID-TID PRN 06/27/24 07/04/24 Rx pain #50 tabs amlodipine 2.5 mg tablet 2.5 mg PO 1200 06/29/24 07/04/24 History clopidogrel 75 mg tablet 75 mg PO QPM 06/29/24 07/04/24 History metoprolol succinate 50 mg 50 mg PO BID 06/29/24 07/04/24 History tablet,extended release 24 hr acetaminophen 500 mg tablet 1,000 mg (2 x 500 mg) PO Q8H PRN 07/07/24 Rx (Tylenol Extra Strength) pain #30 tabs urea 15 gram oral powder packet 15 g PO BID #32 ea 07/07/24 Rx (Ure-Na) Past Med/Surg History Problem List (Updated 07/25/24 @ 13:40 by Parviz Almaraz PA-C) Post-operative infection Hemorrhage from wound (Acute) S/P BKA (below knee amputation) unilateral Ischemic pain of left foot Diabetic foot ulcer PAD (peripheral artery disease) Hyponatremia (Chronic) 12/17/19 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 callous (Chronic) Personal history of diabetic foot ulcer (Chronic) Status post partial amputation of foot (Chronic) Loss of protective sensation of skin of foot (Chronic) Diabetic peripheral neuropathy associated with type 1 diabetes mellitus (Chronic) Proliferative diabetic retinopathy associated with type 1 diabetes mellitus (Chronic) CAD (coronary atherosclerotic disease) (Chronic) Diabetes type 1, controlled (Chronic) Dyslipidemia (Chronic) Ashlie's thyroiditis (Chronic) Hyperkalemia (Chronic) 12/16/19 Hypertension (Chronic) Hypothyroidism (Chronic) PVD (peripheral vascular disease) (Chronic) Vitamin D deficiency (Chronic) Medical History On anticoagulant therapy preventative treatment for a clot that developed during patient's angiogram at [facility] 05/2024 Necrosis left foot toes and base of foot -> reason for the doxycycline prophylactic treatment History of flexible sigmoidoscopy Glaucoma S/P angiogram of extremity left leg (05/2024) at [facility] with Dr. Farr left leg (11/2023) [facility] Chronic kidney disease stage 3 Proliferative diabetic retinopathy Osteopenia CAD (coronary artery disease) Amputation of toe of right foot partial big toe amputation Ashlie thyroiditis per medical record, pt unaware PVD (peripheral vascular disease) Type 1 diabetes Hyperlipidemia Hypertension Hypothyroidism Surgical History History of colonoscopy S/P eye surgery retinopexy bilateral laser surgery History of cataract surgery bilateral History of cardiac cath (09/2003) at [facility]. 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 at [facility] Family History Father Gout Other No family history of adverse response to anesthesia Social History Smoking Status: Never smoker Second Hand Exposure: No; Do You Dip or Chew Tobacco: No; Hx Alcohol Use: Yes Hx Substance Use: No Preferred Language: Amharic Communication Ability: Effective Manager Furniture Required: No Beliefs That Will Affect Care: None Current Living Situation: Spouse Feels Safe at Home: Yes Assistive Devices: Cane and Walker Review of Systems Review of Systems: All systems reviewed & are unremarkable except as noted in HPI & below Physical Exam Physical Exam: General: Well-developed, elderly male, in no acute distress. Sitting in a wheelchair. Alert and oriented. Conversive. Skin: Warm dry with good turgor. No rashes. The patient has a post surgical wound on the left leg below the knee at his amputation site. Erythema, edema, and drainage are present. There is no lymphangitis on the leg. No swelling of the knee. There is no warmth or edema proximal to the tibial tubercle. HEENT: Normocephalic, atraumatic. Eyes PERRLA, EOMI. Nares patent bilaterally without nasal drainage. Oral mucosa moist. Heart: RRR. No MGR. Peripheral pulses are 2+. Lungs: Clear to auscultation bilaterally. No crackles, rhonchi, or wheezing. Good air movement. Abdomen: Bowel sounds present x 4. Soft nontender. No organomegaly. Musculoskeletal: The patient has intact motor function of his left hip and knee. Amputation of the lower leg is present. Neurologic: Gross sensation is intact across the right leg and left thigh by soft touch. Results & Data Results & Data Laboratory Results Wound cultures obtained this morning are pending. Code Status & VTE Plan VTE Prophylaxis Plan VTE Prophylaxis will be ordered: Yes (1) Post-operative infection Encounter type: initial encounter Postoperative infection type: deep incisional surgical site Qualified Code(s): T81.42XA - Infection following a procedure, deep incisional surgical site, initial encounter
[2024-07-25] MEDS ORDERED: Patient's HEIGHT &/or WEIGHT Needed SCH (13:45)
--- NOTE | 2024-07-25 14:41 | Hospitalist Consultation ---
Date of Consultation July 25, 2024 Assessment & Plan (1) S/P BKA (below knee amputation) unilateral: (2) Post-operative infection: (3) PAD (peripheral artery disease): (4) Type 1 diabetes mellitus with complications: (5) Dyslipidemia: (6) Hypertension: (7) Hypothyroidism: Plan This is a 79-year-old male with history of coronary disease/CABG, aortic valve stenosis, peripheral vascular disease, carotid stenosis, diabetes type 1, hypertension, CKD stage III, hypothyroidism, BPH and recent BKA complicated by post-op infection who presents as a direct admission for I&D with orthopedic service tomorrow. S/p left BKA Post-op infection of stump History of L BKA by Dr. 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 Farr of vascular service On apixaban 5 mg twice a day and Plavix 75 mg daily- holding for now Continue Toprol, Lipitor Continue Amlodipine (given missed noontime dose) Diabetes type 1 Usually on insulin lispro and Lantus Glycemic consult placed by primary service BSG ACHS CKD stage III Initial Cr 1.02, at baseline Monitor labs Hypothyroidism Continue levothyroxine 50 mcg daily DVT Ppx: hold Eliquis with plans for OR tomorrow Code status: FULL PCP: Debora Dispo: Per primary service Patient seen in collaboration with Dr. Darling. Please see addendum. I spent a total of 60 minutes coordinating, documenting, and providing care for this patient excluding time spent in the performance of separately billed services. Thank you for this consultation. We will follow the patient with you during their hospital stay. You can reach a member of the [facility] Hospitalist Team 14/06 via pager @ [phone]. Supervising Physician Co-Signing Physician Notes I have seen and discussed the case with the collaborating advanced practitioner. I agree with the above H&P. I have reviewed and confirmed the patients medical history, the findings on physical examination, and the patients diagnosis and treatment plan with Joe LARA and agree with the information documented. In short, Mr. Gonzalez is a 79 year old gentleman with recent left BKA with c/f surgical site infection pending I&D tomorrow. GENERAL APPEARANCE: AxOx4, generally well-appearing male, no acute distress. HEENT: NC, AT. MMM. EOMI, clear conjunctiva, oropharynx clear. NECK: Supple without lymphadenopathy. No stiffness or restricted ROM. HEART: Normal rate and regular rhythm, normal S1/S1, no m/r/g LUNGS: CTAB, moving air well. No crackles or wheezes are heard. ABDOMEN: Soft, nontender, nondistended with good bowel sounds heard. EXTREMITIES: Without cyanosis, clubbing or edema. left stump with clean kerlex dressing in place NEUROLOGICAL: Grossly nonfocal. Alert and oriented, moving all 4 extremities. CN not formally tested but appear grossly intact. Skin: Warm and dry without any rash. #Left stump infection plan for I&D tomorrow Continue abx, follow Op wound cx and narrow as able analgesia prn as above #Chronic hyponatremia worsened post op 2/2 SIADH No longer on urea baseline 129-130s Trend BMP #DM glycemic pharmacy #HTN resume home meds Rest of plan as above : I spent a total of minutes coordinating, documenting, and providing care for this patient excluding time spent in the performance of separately billed services. All of the aforementioned completed outside of collaborating with the assigned advanced practitioner for a full treatment plan. I have reviewed the advanced practitioner's documentation, and I agree with, and take responsibility for the plan of care History of Present Illness Reason for Consultation: med mgmt Attending Physician: Marquis Dominguez MD History of Present Illness This is a 79-year-old male with history of coronary disease/CABG, aortic valve stenosis, peripheral vascular disease, carotid stenosis, diabetes type 1, hypertension, CKD stage III, hypothyroidism, BPH and recent BKA complicated by post-op infection who presents as a direct admission for I&D with orthopedic service tomorrow. Underwent L BKA by Dr. Dominguez on 07/04/24 and was then discharged to [facility], returning home this past Wednesday. On Wednesday, patient lost his footing when transferring from bed to chair and landed on R knee and L stump. Was seen in ED for bleeding wound that resolved and was then discharged back to [facility] over the holiday weekend. Was seen in ortho office earlier tod ay in follow up and due to concern for infection the stump, cultures were obtained and patient was directly admitted to hospital for planned I&D in OR tomorrow. Patient did take his morning Eliquis and Plavix. No longer taking Urea but was started on salt tabs for low sodium. Currently having pain at infection site. No F/C, lightheadedness, CP, SOB, N/V, abd pain, dysuria or constipation. Has been taking stool softeners to have adequate bowel movements. Allergies Allergy/AdvReac Type Severity Reaction Status Date / Time amoxicillin [From Augmentin] AdvReac Severe Vomiting Verified 07/04/24 09:10 clavulanic acid AdvReac Severe Vomiting Verified 07/04/24 09:10 [From Augmentin] codeine AdvReac Severe Vomiting Verified 07/04/24 09:10 sulfamethoxazole AdvReac Severe Vomiting Verified 07/04/24 09:10 [From Bactrim] trimethoprim [From Bactrim] AdvReac Severe Vomiting Verified 07/04/24 09:10 Home Medications Medication Instructions Recorded Confirmed Type atorvastatin 40 mg tablet (Lipitor) 40 mg PO 1700 08/24/19 07/25/24 History cholecalciferol (vitamin D3) 50 2,000 units PO 1200 #90 caps 08/24/19 07/25/24 History mcg (2,000 unit) capsule coenzyme Q10 100 mg capsule 100 mg PO QPM 08/24/19 07/25/24 History levothyroxine 50 mcg tablet 50 mcg PO QAM #90 tabs 08/24/19 07/25/24 History ikjvrsmj-jfefobnm-zayzb acid 400 1 tab PO DAILY 08/24/19 07/25/24 History mcg-vit K 20 mcg-lycop 300 mcg tablet (One-A-Day Men's Multivitamin) glucagon (human recombinant) 1 mg 1 mg subcut Q20M PRN hypoglycemia 09/15/19 07/25/24 Rx solution for injection (Glucagon #1 ea Emergency Kit) alendronate 35 mg tablet 35 mg PO WK 05/22/24 07/25/24 History cetirizine 10 mg tablet (Allergy 10 mg PO QPM 05/22/24 07/25/24 History Relief (cetirizine)) insulin glargine 100 unit/mL 14 unit subcut QAM 05/22/24 07/25/24 History subcutaneous solution (Lantus U-100 Insulin) insulin lispro 100 unit/mL See Rx Instructions subcut .COMPLEX 05/22/24 07/25/24 History subcutaneous pen (Humalog KwikPen (U-100) Insulin) timolol 0.25 % eye drops 1 drp ophthalmic (eye) BID 05/22/24 07/25/24 History apixaban 5 mg tablet (Eliquis) 5 mg PO BID #60 tabs 06/06/24 07/25/24 Rx brimonidine 0.1 % eye drops 1 drp ophthalmic (eye) BID 06/27/24 07/25/24 History (Alphagan P) gabapentin 300 mg capsule 300 mg PO .COMPLEX #90 caps 06/27/24 07/25/24 Rx tramadol 50 mg tablet 100 mg (2 x 50 mg) PO .BID-TID PRN 06/27/24 07/25/24 Rx pain #50 tabs amlodipine 2.5 mg tablet 2.5 mg PO 1200 06/29/24 07/25/24 History clopidogrel 75 mg tablet 75 mg PO QPM 06/29/24 07/25/24 History metoprolol succinate 50 mg 50 mg PO BID 06/29/24 07/25/24 History tablet,extended release 24 hr acetaminophen 500 mg tablet 1,000 mg (2 x 500 mg) PO Q8H PRN 07/07/24 07/25/24 Rx (Tylenol Extra Strength) pain #30 tabs Patient History Medical History On anticoagulant therapy preventative treatment for a clot that developed during patient's angiogram at [facility] 05/2024 Necrosis left foot toes and base of foot -> reason for the doxycycline prophylactic treatment History of flexible sigmoidoscopy Glaucoma S/P angiogram of extremity left leg (05/2024) at [facility] with Dr. Farr left leg (11/2023) [facility] Chronic kidney disease stage 3 Proliferative diabetic retinopathy Osteopenia CAD (coronary artery disease) Amputation of toe of right foot partial big toe amputation Ashlie thyroiditis per medical record, pt unaware PVD (peripheral vascular disease) Type 1 diabetes Hyperlipidemia Hypertension Hypothyroidism Surgical History History of colonoscopy S/P eye surgery retinopexy bilateral laser surgery History of cataract surgery bilateral History of cardiac cath (09/2003) at [facility]. 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 at [facility] Family History Father Gout Other No family history of adverse response to anesthesia Social History Smoking Status: Never smoker Second Hand Exposure: No; Do You Dip or Chew Tobacco: No; Hx Alcohol Use: Yes Hx Substance Use: No Preferred Language: Kuwaiti Communication Ability: Effective Stem Cleaning Machine Feeder Required: No Beliefs That Will Affect Care: None Current Living Situation: Spouse Other Information That Helps Us Care for You: No Feels Safe at Home: Yes Safety Concerns: Feels Safe At This Time Assistive Devices: Glasses, Slide Board and Wheelchair Review of Systems Review of Systems: At least ten systems reviewed and negative except as noted in the HPI. Physical Exam Physical Exam: Please see Dr. Darling' addendum for physical exam. Results & Data Results & Data Laboratory Results Short CBC 07/25/24 Range/Units 15:04 WBC 15.35 H (4.8-10.8) K/ul Hgb 9.6 L (14.0-18.0) g/dl Hct 28.7 L (42.0-52.0) % Plt Count 499 H (130-400) K/uL BMP 07/25/24 15:04 Sodium 131 L Potassium 4.4 Chloride 100 Carbon Dioxide 23 BUN 37 H Creatinine 1.02 Glucose 233 H Calcium 9.0 Liver Function 07/25/24 Range/Units 15:04 Total Bilirubin 0.4 (0.2-1.0) mg/dl AST 16 (13-39) U/L ALT 17 (7-52) U/L Alkaline Phosphatase 62 (34-104) U/L Albumin 3.7 (3.4-5.0) gm/dl (2) Post-operative infection Encounter type: initial encounter Postoperative infection type: deep incisional surgical site Qualified Code(s): T81.42XA - Infection following a procedure, deep incisional surgical site, initial encounter
[2024-07-25 15:22] LABS: Basophils # (auto) 0.04 K/uL (0.00-0.20); Basophils % (auto) 0.3 %; Eosinophils # (auto) 0.25 K/uL (0.00-0.50); Eosinophils % (auto) 1.6 %; Hematocrit (blood only) 28.7 % (42.0-52.0); Hemoglobin 9.6 g/dl (14.0-18.0); Immature Granulocytes # (auto) 0.09 K/uL (0.01-0.20); Immature Granulocytes % (auto) 0.6 %; Lymphocytes # (auto) 1.71 K/uL (1.20-3.40); Lymphocytes % (auto) 11.1 %; Mean Corpuscular Hemoglobin 29.7 pg (25.0-34.0); Mean Corpuscular Hgb Conc 33.4 g/dL (32.0-36.0); Mean Corpuscular Volume 88.9 fL (80.0-100.0); Mean Platelet Volume 8.8 fL (9.4-12.4); Monocytes # (auto) 1.35 K/uL (0.11-0.59); Monocytes % (auto) 8.8 %; Neutrophils # (auto) 11.91 K/uL (1.40-6.50); Neutrophils % (auto) 77.6 %; Platelet Count 499 K/uL (130-400); RDW Coefficient of Variation 14.1 % (11.5-14.5); RDW Standard Deviation 45.9 fL (36.4-46.3); Red Blood Count 3.23 M/uL (4.70-6.10); White Blood Count 15.35 K/ul (4.8-10.8)
[2024-07-25 15:56] LABS: Albumin Globulin Ratio 1.2 (0.9-2); Albumin Level 3.7 gm/dl (3.4-5.0); BUN Creatinine Ratio 36.3 (10-20); Bilirubin,Total 0.4 mg/dl (0.2-1.0); C Reactive Protein 9.69 mg/dl (0-0.5); Creatinine Clr Calc Pharmacy 50.3 ml/min; Est GFR (African American) 80.6 ml/min; Est GFR (Non-African American) 69.6 ml/min; Globulin 3.1 gm/dl (2.5-4.0); Potassium 4.4 mmol/L (3.5-5.1); Total Protein 6.8 gm/dl (6.0-8.3)
[2024-07-25] MEDS: SODIUM CHLORIDE 0.9% 1,000 ML IV SCH (16:03)
--- NOTE | 2024-07-25 16:57 | Pharmacy Report ---
Pharmacy Glycemic Short Note 2 - Date of Service July 25, 2024 - Glycemic Short BSG Results (Last 24 hours): 07/25/24 07/25/24 15:04 16:36 Glucose 233 H POC Glucose 207 H OUTPATIENT ANTIDIABETIC REGIMEN: * Lantus 14 units QAM * Humalog SS (TDD 30) * 3 units with BF * 3-5 units with VICENTA * 4-10 units with DIN ASSESSMENT: * Tre is a 79 YOM admitted with a post operative stump infection and a histor y of type 1 diabetes mellitus. Pharmacy has been consulted to assist with glycemic management while inpatient. * Confirmed with RN that he did take his basal insulin this morning, dinnertime BSGs elevated in low 200s, will add a small additional dose of Lantus this evening if BSGs remain elevated. He is receiving vancomycin and cefepime for his infection. * Novolog initiated between a weight based stress of 2-3, has required tighter parameters on previous admissions. PLAN FOR INPATIENT GLYCEMIC CONTROL: * Hold outpatient oral diabetes medications * Basal insulin * Lantus 5 units SQ HS x1 (if BSGs 220mg/dL or greater) * Reassess basal insulin in AM * Bolus insulin * NovoLog per scale ACHS or Q6hrs while NPO * Goal Range: Low 110 mg/dL - High 140 mg/dL * Correction Factor: 30 mg/dL/unit * Nutritional / Prandial insulin per carb ratio of 1 unit per 10 grams CHO consumed
[2024-07-25] MEDS: VANCOMYCIN HCL 1,250 MG in SODIUM CHLORIDE 0.9% 250 ML IV ONE (16:59)
[2024-07-25] MEDS: CEFEPIME 2,000 MG in SYRINGE 0 ML IV ONE (17:10)
[2024-07-25] MEDS: amLODIPine BESYLATE 5 MG TAB PO ONE (17:34)
[2024-07-25] MEDS: ATORVASTATIN 40 MG TAB PO SCH (17:34)
--- NOTE | 2024-07-25 17:34 | Pharmacy Report ---
Pharmacy PK ABX Note - Date of Service July 25, 2024 - Assessment and Plan Assessment 79 year old M receiving vancomycin/cefepime for treatment of BKA site infection post-op 07/04/24. Pertinent microbiologic data includes: No cultures ordered at this time, but I&D scheduled for tomorrow. Day # 1 of antimicrobial therapy. Plan Vancomycin * Loading dose: 1250 mg IV x 1 * Maintenance dose: 1250 mg IV every 24 hours * Regimen is predicted to achieve target AUC/SHIRA of 400-600 mg/L.hr * Trough level ordered for: 07/28/24 @ 0530. Pharmacy will continue to follow and will adjust dose/frequency as necessary. Thank you. Pharmacy has transitioned to AUC monitoring for vancomycin. AUC/SHIRA is the preferred PK/PD target and is associated with decreased risk of nephrotoxicity compared to traditional trough targets.
[2024-07-25] MEDS: INSULIN ASPART PER UNIT CHARGE SC SCH (17:38)
[2024-07-25] MEDS: ACETAMINOPHEN 500 MG TAB PO SCH (17:39)
[2024-07-25] MEDS ORDERED: NON-FORMULARY MEDICATION (Coenzyme Q10 100 mg capsule) PO SCH (21:00)
[2024-07-25] MEDS: CETIRIZINE HCL 10 MG TABLET PO SCH (21:09)
[2024-07-25] MEDS: METOPROLOL SUCC 50MG EXT REL TAB PO SCH (21:09)
[2024-07-25] MEDS: TIMOLOL MALEATE 0.25% OP SOLN 5 ML BTL OP SCH (21:10)
[2024-07-25] MEDS: LANTUS PER UNIT CHARGE SC SCH (21:17)
[2024-07-25] MEDS: oxyCODONE HCL IR 5 MG TAB (IMMEDIATE RELEASE) PO PRN (21:21)
[2024-07-25] MEDS: BRIMONIDINE TAR OP SCH (23:25)
[2024-07-26] MEDS: BRIMONIDINE TARTRATE-P 0.15% 5 ML BTL OP SCH (00:35)
[2024-07-26] MEDS ORDERED: Nursing to Pharmacy Communication SCH ×2 (01:45→16:15)
[2024-07-26] MEDS: CEFEPIME 2,000 MG in SYRINGE 0 ML IV SCH (05:54)
[2024-07-26] MEDS: VANCOMYCIN HCL 1,250 MG in SODIUM CHLORIDE 0.9% 250 ML IV SCH (05:56)
[2024-07-26] MEDS: LEVOTHYROXINE SODIUM 50 MCG TABLET PO SCH (05:58)
[2024-07-26] MEDS: INSULIN ASPART PER UNIT CHARGE SC SCH ×2 (06:04→17:44)
[2024-07-26 07:53] LABS: Hematocrit (blood only) 26.4 % (42.0-52.0); Hemoglobin 8.7 g/dl (14.0-18.0); Mean Corpuscular Hemoglobin 29.8 pg (25.0-34.0); Mean Corpuscular Volume 90.4 fL (80.0-100.0); Mean Platelet Volume 8.8 fL (9.4-12.4); Nucleated RBC # (auto) 0.03 K/uL (0.00-0.12); Nucleated RBC % (auto) 0.2 %; Platelet Count 415 K/uL (130-400); RDW Standard Deviation 46.6 fL (36.4-46.3); Red Blood Count 2.92 M/uL (4.70-6.10); White Blood Count 13.53 K/ul (4.8-10.8)
[2024-07-26 07:59] LABS: BUN Creatinine Ratio 27.6 (10-20); Creatinine Clr Calc Pharmacy 48.8 ml/min; Est GFR (African American) 77.9 ml/min; Est GFR (Non-African American) 67.2 ml/min; Potassium 3.9 mmol/L (3.5-5.1)
[2024-07-26] MEDS: LANTUS PER UNIT CHARGE SC SCH (08:21)
[2024-07-26] MEDS: CEROVITE ADV FORMULA TAB PO SCH (08:59)
[2024-07-26] MEDS: SODIUM CHLORIDE 0.9% 1,000 ML IV SCH ×2 (10:38→15:33)
[2024-07-26] MEDS ORDERED: LACTATED RINGER'S 1,000 ML IV SCH (10:45)
[2024-07-26] MEDS ORDERED: fentaNYL citrate PF 100 MCG/2 ML VIAL ONE (10:55)
--- NOTE | 2024-07-26 11:01 | Anesthesiology Consultation ---
Date of Service July 26, 2024 Assessment & Plan Chart Review Chart Review: Acceptable Risk for Surgery and Patient NOT seen in Pre Admission Testing Consults Requested none ASA ASA4 Proposed Anesthesia Anesthesia Type: General Risk / Benefits Reviewed With: PT / POA / Parent / Guardian, Accepts Plan and Informed Consent Obtained History Surgery Operation Date: 07/26/24 11:00 Proposed Procedures p Left Knee Incision Drainage, Irrigation and Debridement - Marquis Dominguez MD s Possible Revision Amputation Left Leg - Marquis Dominguez MD Height/Weight Height: 5 ft 6 in Weight: 60.526 kg Allergies Allergy/AdvReac Type Severity Reaction Status Date / Time amoxicillin [From Augmentin] AdvReac Severe Vomiting Verified 07/26/24 10:26 clavulanic acid AdvReac Severe Vomiting Verified 07/26/24 10:26 [From Augmentin] codeine AdvReac Severe Vomiting Verified 07/26/24 10:26 sulfamethoxazole AdvReac Severe Vomiting Verified 07/26/24 10:26 [From Bactrim] trimethoprim [From Bactrim] AdvReac Severe Vomiting Verified 07/26/24 10:26 Medications Home Medications Medication Instructions Recorded Confirmed Last Taken atorvastatin 40 mg tablet (Lipitor) 40 mg PO 1700 08/24/19 07/25/24 07/03/24 18:00 cholecalciferol (vitamin D3) 50 2,000 units PO 1200 #90 caps 08/24/19 07/25/24 07/03/24 12:00 mcg (2,000 unit) capsule coenzyme Q10 100 mg capsule 100 mg PO QPM 08/24/19 07/25/24 07/03/24 18:00 levothyroxine 50 mcg tablet 50 mcg PO QAM #90 tabs 08/24/19 07/25/24 07/04/24 07:30 xiyokidt-izdklskf-pmdfc acid 400 1 tab PO DAILY 08/24/19 07/25/24 07/03/24 08:00 mcg-vit K 20 mcg-lycop 300 mcg tablet (One-A-Day Men's Multivitamin) glucagon (human recombinant) 1 mg 1 mg subcut Q20M PRN hypoglycemia 09/15/19 07/25/24 Unknown solution for injection (Glucagon #1 ea Emergency Kit) alendronate 35 mg tablet 35 mg PO WK 05/22/24 07/25/24 07/02/24 cetirizine 10 mg tablet (Allergy 10 mg PO QPM 05/22/24 07/25/24 07/03/24 18:00 Relief (cetirizine)) insulin glargine 100 unit/mL 14 unit subcut QAM 05/22/24 07/25/24 07/04/24 07:30 subcutaneous solution (Lantus U-100 Insulin) insulin lispro 100 unit/mL See Rx Instructions subcut .COMPLEX 05/22/24 07/25/24 07/03/24 18:00 subcutaneous pen (Humalog KwikPen (U-100) Insulin) timolol 0.25 % eye drops 1 drp ophthalmic (eye) BID 05/22/24 07/25/24 07/04/24 07:30 apixaban 5 mg tablet (Eliquis) 5 mg PO BID #60 tabs 06/06/24 07/25/24 06/30/24 brimonidine 0.1 % eye drops 1 drp ophthalmic (eye) BID 06/27/24 07/25/24 07/04/24 07:30 (Alphagan P) amlodipine 2.5 mg tablet 2.5 mg PO 1200 06/29/24 07/25/24 07/03/24 12:00 clopidogrel 75 mg tablet 75 mg PO QPM 06/29/24 07/25/24 06/30/24 metoprolol succinate 50 mg 50 mg PO DAILY 06/29/24 07/25/24 07/04/24 07:30 tablet,extended release 24 hr acetaminophen 500 mg tablet 1,000 mg (2 x 500 mg) PO Q8H PRN 07/07/24 07/25/24 Unknown (Tylenol Extra Strength) pain #30 tabs Active Medications Generic Name Dose Route Start Last Admin Trade Name Freq PRN Reason Stop Dose Admin Acetaminophen 1,000 mg 07/25/24 16:30 07/26/24 08:21 Acetaminophen 500 Mg Tab PO 08/24/24 16:29 1,000 mg Q8H LUIS MANUEL Administration Atorvastatin Calcium 40 mg 07/25/24 17:00 07/25/24 17:34 Atorvastatin 40 Mg Tab PO 08/24/24 16:59 40 mg 1700 LUIS MANUEL Administration Brimonidine Tartrate 1 drops 07/25/24 23:30 07/26/24 08:06 Brimonidine Tartrate-P 0.15% 5 Ml Btl OP 08/24/24 23:29 1 drops BID LUIS MANUEL Administration Cetirizine HCl 10 mg 07/25/24 21:00 07/25/24 21:09 Cetirizine Hcl 10 Mg Tablet PO 08/24/24 20:59 10 mg QPM LUIS MANUEL Administration Sodium Chloride 1,000 mls @ 80 mls/hr 07/25/24 13:15 07/26/24 05:56 Nss IV 08/24/24 13:14 0 mls/hr .[id number] LUIS MANUEL Infusion Cefepime HCl 2,000 mg/ Syringe 20 mls @ 5 mls/min 07/26/24 05:00 07/26/24 05:54 IV 08/02/24 04:59 5 mls/min Q12H LUIS MANUEL Administration Protocol Vancomycin HCl 1,250 mg/ 275 mls @ 200 mls/hr 07/26/24 06:00 07/26/24 08:55 Sodium Chloride IV 08/02/24 05:59 Infused Q24H LUIS MANUEL Infusion Sodium Chloride 1,000 mls @ 15 mls/hr 07/26/24 10:45 07/26/24 10:38 Nss IV 08/25/24 10:44 15 mls/hr .Q24H LUIS MANUEL Administration Insulin Aspart 0 units 07/26/24 06:00 07/26/24 06:04 Insulin Aspart Per Unit Charge [place] 08/25/24 05:59 1 units Q6 LUIS MANUEL Administration Insulin Glargine 11 units 07/26/24 09:00 07/26/24 08:21 Lantus Per Unit Charge OH 07/26/24 12:00 11 units DAILY LUIS MANUEL Administration Levothyroxine Sodium 50 mcg 07/26/24 06:30 07/26/24 05:58 Levothyroxine Sodium 50 Mcg Tablet PO 08/25/24 06:29 50 mcg DAILYBB LUIS MANUEL Administration Metoprolol Succinate 50 mg 07/25/24 21:00 07/26/24 08:05 Metoprolol Succ 50mg Ext Rel Tab PO 08/24/24 20:59 50 mg BID LUIS MANUEL Administration Multivitamins/Minerals 1 tab 07/26/24 09:00 07/26/24 08:59 Cerovite Adv Formula Tab PO 08/25/24 08:59 1 tab DAILY LUIS MANUEL Administration Oxycodone HCl 5 mg 07/25/24 16:24 07/25/24 21:21 Oxycodone Hcl Ir 5 Mg Tab (Immediate Release) PO 08/08/24 16:23 5 mg Q6H PRN Administration Mod-Sev Pain (Scale 4-10) Timolol Maleate 1 drops 07/25/24 21:00 07/26/24 08:06 Timolol Maleate 0.25% Op Soln 5 Ml Btl OP 08/24/24 20:59 1 drops BID LUIS MANUEL Administration NPO Date Last Intake of Fluids: 07/25/24 Time Last Intake of Fluids: 22:00 Date Last Intake of Solids: 07/25/24 Time Last Intake of Solids: 22:00 Past Medical History Medical History On anticoagulant therapy preventative treatment for a clot that developed during patient's angiogram at [facility] 05/2024 Necrosis left foot toes and base of foot -> reason for the doxycycline prophylactic treatment History of flexible sigmoidoscopy Glaucoma S/P angiogram of extremity left leg (05/2024) at [facility] with Dr. 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 at [facility] Past Anesthesia History No Hx of Anesthesia Complications and No Family Hx of Anesthesia Complications History of PONV No Hx of PONV and No Hx of Motion Sickness Social History Smoking Status: Never smoker Do You Dip or Chew Tobacco: No Hx Alcohol Use: Yes alcohol intake frequency: holidays/special occasions only Hx Substance Use: No substance use type: does not use Physical Exam Vital Signs Last Vital Signs Temp 37.0 C 07/26/24 10:27 Pulse 60 07/26/24 10:27 Resp 18 07/26/24 10:27 BP 120/57 L 07/26/24 10:27 Pulse Ox 98 07/26/24 10:27 O2 Del Method Room Air 07/26/24 10:27 Constitutional no acute distress ENMT Mouth: no dentition abnormality Thyromental Distance: > or= 3.5 Finger Breadths Mallampati Class: II Neck normal visual inspection and trachea midline; neck extension not limited Respiratory normal respiratory effort Auscultation: lungs clear to auscultation bilaterally Cardiovascular Rate/Rhythm: regular rate and regular rhythm Heart Sounds: no murmur Vessels: no carotid bruit Musculoskeletal Spine: normal cervical ROM and no pain with cervical ROM Extremities: + amputation noted (Left leg); + extremities abnormal to inspection Neurologic moves all extremities Motor/Sensory: + sensory deficit Psychiatric Orientation: alert and oriented x 3 Testing Laboratory Results 07/26/24 07:20 07/26/24 07:20 Blood Type O Negative 07/25/24 15:04 Antibody Screen NEGATIVE 07/25/24 15:04 07/26/24 07/26/24 07/26/24 10:33 05:53 00:47 POC Glucose 124 H 166 H 78 Electrocardiogram Date: 07/03/24 Findings: + NSR @ (@ 76) and + RBBB Chest X-Ray Date: 07/06/24 Findings: + infiltrate (left midlung opacity c/w pneumonia) Echocardiogram Date: 04/05/24 EF: 55% LV Function: normal RWMA: + none Valvular Disease: + MR (mild- moderate MR) TR- mild Other Testing 05/03/24-carotid U/S-B/L ICA's < 50%
--- NOTE | 2024-07-26 11:24 | History & Physical Bridge Note ---
Date of Service July 26, 2024 History & Physical Bridge Note I have examined the patient, reviewed the History & Physical and in the interval since the performance of the History & Physical I have noted the following changes of clinical significance: no changes noted
[2024-07-26] MEDS ORDERED: TRANEXAMIC ACID / 0.7% NACL 1000MG/100ML BAG IV ONE (11:56)
[2024-07-26] MEDS ORDERED: ceFAZolin 330 MG/ML 1 GM VIAL ONE ×2 (11:58)
[2024-07-26] MEDS ORDERED: LIDOCAINE 2% 2 ML VIAL/AMP(20MG/ML) INFIL ONE (12:12)
[2024-07-26] MEDS ORDERED: ONDANSETRON INJ 2 MG/ML 2 ML VIAL ONE (12:12)
[2024-07-26] MEDS ORDERED: ePHEDrine sulfate 50 MG/5 ML SYR ONE (12:12)
[2024-07-26] MEDS ORDERED: PROPOFOL IV EMULSION 10 MG/ML 20 ML VIAL IV ONE (12:12)
--- NOTE | 2024-07-26 12:16 | Pharmacy Report ---
Pharmacy Glycemic Short Note 2 - Date of Service July 26, 2024 - Glycemic Short BSG Results (Last 24 hours): 07/25/24 07/25/24 07/25/24 15:04 16:36 20:37 Glucose 233 H POC Glucose 207 H 171 H 07/26/24 07/26/24 07/26/24 00:47 05:53 07:20 Glucose 137 H POC Glucose 78 166 H 07/26/24 10:33 Glucose POC Glucose 124 H OUTPATIENT ANTIDIABETIC REGIMEN: * Lantus 14 units QAM * Humalog SS (TDD 30) * 3 units with BF * 3-5 units with VICENTA * 4-10 units with DIN ASSESSMENT: 07/26 * Patient received total of 19 units of insulin yesterday, of which 14 units were basal (home dose/taken DENITRATOR) * Fasting BSG 137 mg/dL - patient NPO for procedure today, will reduce ~20% to 11 units basal this AM for NPO status * No change to CF/CR 07/25 * Tre is a 79 YOM admitted with a post operative stump infection and a history of type 1 diabetes mellitus. Pharmacy has been consulted to assist with glycemic management while inpatient. * Confirmed with RN that he did take his basal insulin this morning, dinnertime BSGs elevated in low 200s, will add a small additional dose of Lantus this evening if BSGs remain elevated. He is receiving vancomycin and cefepime for his infection. * Novolog initiated between a weight based stress of 2-3, has required tighter parameters on previous admissions. PLAN FOR INPATIENT GLYCEMIC CONTROL: * Hold outpatient oral diabetes medications * Basal insulin * Lantus 11 units daily x 1 today for NPO status * Bolus insulin * NovoLog per scale ACHS or Q6hrs while NPO * Goal Range: Low 110 mg/dL - High 140 mg/dL * Correction Factor: 30 mg/dL/unit * Nutritional / Prandial insulin per carb ratio of 1 unit per 10 grams CHO consumed
[2024-07-26] MEDS: LIDOCAINE 1% LOCAL 20 ML VIAL ONE (13:08)
[2024-07-26] MEDS: BUPIVACAINE 0.5 % 5 MG/1 ML MPF 30ML VIAL ONE (13:08)
--- NOTE | 2024-07-26 13:12 | Fluoroscopy Report ---
FL knee LT 1 or 2V CLINICAL HISTORY: LT KNEE REVISION/AMPUTATION COMPARISON STUDY: 07/25/2024 FLUOROSCOPY TIME: 2.9 seconds FLUOROSCOPY IMAGES: 1 EXPOSURE DOSE: 0.13 mGy FINDINGS: Status post below the knee dilatation with soft tissue swelling and arterial calcifications . Expected postoperative deep tissue air. IMPRESSION: Fluoroscopic assistance as above. ACT 112: Negative or not required by law. Electronically signed by: Juan Lou M.D. 07/26/2024 1:11 PM
--- NOTE | 2024-07-26 13:29 | Operative Report ---
Post Operative Report Pre & Post Diagnosis Operation Date: 07/26/24 11:00 Pre-Op Diagnosis: infected bka Post-Op Diagnosis: infected bka I identified the patient and participated in the time-out.: Yes Procedure Operation Date: 07/26/24 11:00 Actual Procedures p Left Knee Incision Drainage, Irrigation and Debridement(Left) - Marquis Dominguez MD s Revision Amputation Left Leg(Left) - Marquis Dominguez MD Surgeon Marquis Dominguez MD Gas Shovel Operator Erik Madison DO/ Parviz Almaraz PA-C Estimated Blood Loss 50 Findings Consistent with Post-Op Diagnosis Specimens BKA stump cultures x 1 Description of Procedure Patient was brought to the operative suite, left lower extremity was prepped and draped in usual sterile fashion. Surgical timeout is performed. Patient underwent left lower extremity irrigation and debridement with revision BKA, please see Dr. Dominguez's operative report for full details. Is present assisted with surgical debridement, limb positioning, soft tissue retraction, revision BKA procedure, wound closure, postoperative dressing placement. Patient was awakened and taken to the recovery room in stable condition. I attest to the content of the Intraoperative Record and any orders documented therein. Any exceptions are noted below.
[2024-07-26] MEDS: HYDROmorphone INJ 0.5 MG/0.5 ML SYR IV PRN (13:40)
--- NOTE | 2024-07-26 13:43 | Operative Report ---
Post Operative Report Pre & Post Diagnosis Operation Date: 07/26/24 11:00 Pre-Op Diagnosis: infected bka Post-Op Diagnosis: infected bka I identified the patient and participated in the time-out.: Yes Procedure Operation Date: 07/26/24 11:00 Actual Procedures p Left Knee Incision Drainage, Irrigation and Debridement(Left) - Marquis Dominguez MD s Revision Amputation Left Leg(Left) - Marquis Dominguez MD Surgeon Marquis Dominguez MD Rental Coordinator Erik Madison DO/ Parviz Almaraz PA-C Estimated Blood Loss 50 Findings Consistent with Post-Op Diagnosis Specimens Deep culture left BKA sent for routine analysis Gram stain anaerobic aerobic cultures.Resected bone and soft tissue. Drains Hemovac x 1 Anesthesia Type General Regional Complications none Disposition Accompanied Patient To Recovery: No Disposition: Recovery Room Indications Mr. Yañez is approximately 3-week status post a left BKA secondary to diabetes foot wounds and this vascularity. He had a fall last Wednesday. He is subsequently developed an infection with wound dehiscence and purulent drainage. I recommended irrigation debridement possible revision BKA or AKA and he has agreed to proceed. Description of Procedure Informed consent. Patient identified. He identified the procedure site as the left lower leg. I marked with my initials. A preoperative surgical timeout was performed. A preop dose of IV antibiotics was given. He was positioned supine on the OR table. A tourniquet was applied to the left thigh but not inflated during the case. The leg was scrubbed with Betadine and then prepped with Betadine paint. The sutures present were removed. There was dehiscence along the medial one quarter of the wound. There was impaired wound healing over the lateral one quarter of the wound. The medial and lateral extents especially lateral appear to be well-healed. There was purulent drainage anteromedially. There is no exposed bone. DVT prophylaxis with mechanical devices intraoperatively and chemoprophylaxis postop. He was on Eliquis. Last dose was 1 day ago. He was given Kcentra and TXA. The wound was opened up with blunt dissection or sharply as dictated by the degree of healing. The lateral half of the wound was reasonably well-healed and in particular deeply the deeper fascial layer was complete completely healed and there was no evidence of infection laterally. I did debride the skin margins throughout as there was some necrotic skin and areas of poor healing. Central medial was an area of abscess formation. This tracked down and superficially through the deep muscle layer to the level of the bone. A culture was obtained and sent for routine analysis. The infection and unhealthy tissue/tissue necrosis was mostly central and medial. Sharp excisional debridement using scissors and scalpel as well as rongeur was performed back to healthy bleeding tissue. There is nothing infection gilmore tracking laterally. Nothing went further than the stump of the bone in any direction proximally. Irrigation was performed with 6 L of saline pulsatile lavage. Further debridement was performed as necessary of skin soft tissue muscle tendon and subcutaneous fat in a sharp fashion. Wound could not be closed with the bone at present length. The bone length was measured to be 13 cm. The distal portion was dissected out and the tibia was shortened by approximately 1.5 cm and beveled anteriorly and then smoothed with a rongeur. This allowed a tension-free soft tissue closure. I felt that the tissue looked healthy enough and the infection was reasonably well and of confined to that this was a realistic option. Hemovac drain was inserted deep and exited out medially. The skin was then cl osed with simple sutures and mainly near far far near retention stitches. The leg was cleaned with wet and dry sponges and a saw sterile dressing was applied Xeroform 4 x 4's ABD soft wrap Jonathan wrap. The patient was awakened from anesthesia and taken to recovery in stable condition. The bone did not appear to be soft. There were no specimens or complications. Counts were correct and blood loss is estimated to be 50 cc. At the conclusion the operation spoke the patient's family informed of my findings and discussed the postoperative plan. IV antibiotics. Wound monitoring. Probable ID consultation.Hold Eliquis in case there is a need for short-term revision surgery. I attest to the content of the Intraoperative Record and any orders documented therein. Any exceptions are noted below.
[2024-07-26] MEDS ORDERED: HYDROmorphone INJ 0.5 MG/0.5 ML SYR IV PRN (14:07)
--- NOTE | 2024-07-26 14:11 | Anesthesiology Progress Note ---
Date of Service July 26, 2024 Anesthesia Post Procedure Vital Signs Vital Signs: Temp Pulse Pulse Resp BP BP Pulse Ox 07/26/24 14:00 61 12 119/49 L 98 07/26/24 13:50 57 L 12 124/49 L 100 07/26/24 13:40 59 L 13 130/54 L 100 07/26/24 13:30 60 14 139/55 L 100 07/26/24 13:20 36.7 C 64 19 142/60 H 100 07/26/24 12:05 37.0 C 60 18 120/60 98 07/26/24 10:27 37.0 C 60 18 120/57 L 98 07/26/24 07:47 36.8 C 66 68 18 138/68 100 07/25/24 19:51 36.8 C 68 18 134/64 100 07/25/24 15:22 36.6 C 87 16 180/74 H 100 O2 Del Method O2 Flow Rate 07/26/24 14:00 Room Air 0 07/26/24 13:50 Room Air 0 07/26/24 13:40 Oxymask 4 07/26/24 13:30 Oxymask 4 07/26/24 13:20 Oxymask 4 07/26/24 12:05 Room Air 07/26/24 10:27 Room Air 07/26/24 07:47 Room Air 07/25/24 19:51 Room Air 07/25/24 15:22 Room Air Pain Intensity Left Leg: Pain Intensity: 7 Transfer of Care Handoff Completed per policy Notes Mental Status: alert / awake / arousable Patient Amnestic to Procedure: Yes Nausea / Vomiting: adequately controlled Pain: adequately controlled Airway Patency, RR, SpO2: stable & adequate BP & HR: stable & adequate Hydration State: stable & adequate Anesthetic Complications: no major complications apparent
[2024-07-26] MEDS ORDERED: FLUMAZENIL 0.1 MG/1 ML 10 ML VIAL IV PRN (14:16)
[2024-07-26] MEDS ORDERED: ONDANSETRON INJ 2 MG/ML 2 ML VIAL IV PRN ×2 (14:16→15:02)
[2024-07-26] MEDS ORDERED: ATROPINE SULFATE 0.1 MG/ML 10ML SYR IV PRN (14:16)
[2024-07-26] MEDS ORDERED: NALOXONE HCL 0.4 MG/1 ML VIAL/CARP IV PRN ×2 (14:16→15:02)
[2024-07-26] MEDS ORDERED: LABETALOL HCL IV 5 MG/ML 20ML IV PRN (14:16)
[2024-07-26] MEDS ORDERED: fentaNYL citrate PF 100 MCG/2 ML VIAL IV PRN (14:16)
[2024-07-26] MEDS ORDERED: ePHEDrine sulfate 50 MG/ML AMP IV PRN (14:16)
[2024-07-26] MEDS ORDERED: PROMETHAZINE HCL 6.25 MG in SODIUM CHLORIDE 0.9% 50 ML IV PRN (14:16)
[2024-07-26] MEDS: HYDROmorphone INJ 2 MG/ML SYR/VIAL ONE (14:18)
[2024-07-26] MEDS ORDERED: HYDROmorphone INJ 2 MG/ML SYR/VIAL IV PRN (14:45)
[2024-07-26] MEDS ORDERED: MAGNESIUM HYDROXIDE SUSP 30 ML UDC PO PRN (15:02)
[2024-07-26] MEDS ORDERED: bisacodyL 10 MG SUPP PR PRN (15:02)
[2024-07-26] MEDS ORDERED: METOCLOPRAMIDE HCL INJ 5 MG/ML 2 ML VIAL IV PRN (15:02)
[2024-07-26] MEDS: KCENTRA (500unit vial) 2000 units IVP IV SCH (15:44)
[2024-07-26] MEDS: amLODIPine BESYLATE 5 MG TAB PO SCH (17:12)
[2024-07-26] MEDS: CHOLECALCIFEROL 25 MCG (1000 UNITS) TAB PO SCH (17:13)
--- NOTE | 2024-07-26 18:03 | Hospitalist Progress Note ---
Date of Service July 26, 2024 delayed entry date of service noted above Assessment & Plan (1) S/P BKA (below knee amputation) unilateral: (2) Post-operative infection: (3) PAD (peripheral artery disease): (4) Type 1 diabetes mellitus with complications: (5) Dyslipidemia: (6) Hypertension: (7) Hypothyroidism: Plan Per previous hospitalist service note with addendum: This is a 79-year-old male with history of coronary disease/CABG, aortic valve stenosis, peripheral vascular disease, carotid stenosis, diabetes type 1, hypertension, CKD stage III, hypothyroidism, BPH and recent BKA complicated by post-op infection who presents as a direct admission for I&D with orthopedic service tomorrow. S/p left BKA Post-op infection of stump History of L BKA by Dr. Dominguez on 07/04/24 Direct admission by ortho from clinic due to concern for infection the stump Cultures obtained in clinic - follow Planned I&D, possible revision of his left below-knee amputation in OR tomorrow Continue IV Cefepime, vanco Patient did take his morning Eliquis and Plavix - hold evening dose Pain control NPO at midnight 07/26 Stable overall Hold Eliquis until okay with orthopedic surgery Eliquis utilized for peripheral vascular disease as per patient Repeat CBC, BMP tomorrow H/o SIADH Seen by nephro for this during previous admission in mid-June Was started on Urea BID to continue through his stay at rehab but has since been discontinued, has been taking salt tabs Sodium improved, at 131 Monitor with daily BMP Anemia, post-op Hgb in 9-10 range following recent BKA Trend CBC, transfuse < 8.0 Given history of PAD, CKD, CAD, will pursue transfusion goal > 8.0 CAD/CABG Peripheral Arterial disease Carotid stenosis Hypertension Follows with Dr. Farr of vascular service On apixaban 5 mg twice a day and Plavix 75 mg daily- holding for now Continue Toprol, Lipitor Continue Amlodipine (given missed noontime dose) Diabetes type 1 Usually on insulin lispro and Lantus Glycemic consult placed by primary service BSG ACHS CKD stage III Initial Cr 1.02, at baseline Monitor labs Hypothyroidism Continue levothyroxine 50 mcg daily DVT Ppx: hold usual Eliquis until ok with Ortho SCDs Code status: FULL PCP: Debora Dispo: Per primary service Thank you for this consultation. We will follow the patient with you during their hospital stay. You can [facility] via pager @ [phone]. Admission and Anticipated Discharge Date Admission Date: July 25, 2024 Subjective ff up for Left BKA infection, status post debridement, etc. Seen resting in bed, sitting up, not in distress, comfortable States he feels fine overall Denies chest pain, shortness of breath, palpitations, dizziness No nausea vomiting, abdominal pain Denies pain over the surgical site No other new symptoms Review of Systems Review of Systems: all noted and negative except for above Physical Exam Physical Exam: General- oriented x 3, not in distress, speaks in sentences with no effort or accessory muscle use Eyes- anicteric Neck- no JVD Lungs- clear breath sounds bilaterally, no rales/wheezes Heart- normal rate, regular rhythm; no murmurs Abdomen- normal bowel sounds, nondistended, soft, No tenderness Extremities- no pretibial edema, no calf tenderness Left lower extremity: Have a dressing in place Neuro- alert, oriented x 3; no gross focal neurologic deficits Skin- warm & dry Results & Data Results & Data Vital Signs (Past 12 Hours) Vital Signs Temp Pulse Pulse Resp BP BP Pulse Ox 07/26/24 17:05 78 18 152/70 H 97 07/26/24 16:08 36.4 C L 75 16 138/70 97 07/26/24 15:33 36.7 C 70 16 145/67 H 98 07/26/24 15:00 36.7 C 68 18 131/63 100 07/26/24 14:44 63 16 123/49 L 100 07/26/24 14:30 36.4 C L 60 12 120/50 L 100 07/26/24 14:20 61 17 124/51 L 100 07/26/24 14:10 63 16 122/51 L 07/26/24 14:00 61 12 119/49 L 98 07/26/24 13:50 57 L 12 124/49 L 100 07/26/24 13:40 59 L 13 130/54 L 100 07/26/24 13:30 60 14 139/55 L 100 07/26/24 13:20 36.7 C 64 19 142/60 H 100 07/26/24 12:05 37.0 C 60 18 120/60 98 07/26/24 10:27 37.0 C 60 18 120/57 L 98 07/26/24 07:47 36.8 C 66 68 18 138/68 100 O2 Del Method O2 Flow Rate 07/26/24 17:05 Room Air 07/26/24 16:08 Room Air 07/26/24 15:33 Room Air 07/26/24 15:00 Room Air 07/26/24 14:44 Room Air 07/26/24 14:30 Room Air 07/26/24 14:20 Room Air 07/26/24 14:10 Room Air 07/26/24 14:00 Room Air 0 07/26/24 13:50 Room Air 0 07/26/24 13:40 Oxymask 4 07/26/24 13:30 Oxymask 4 07/26/24 13:20 Oxymask 4 07/26/24 12:05 Room Air 07/26/24 10:27 Room Air 07/26/24 07:47 Room Air all noted and reviewed including below (2) Post-operative infection Encounter type: initial encounter Postoperative infection type: deep incisional surgical site Qualified Code(s): T81.42XA - Infection following a procedure, deep incisional surgical site, initial encounter
--- NOTE | 2024-07-26 18:08 | Orthopedic Progress Note ---
Date of Service July 26, 2024 Assessment & Plan (1) Post-operative infection: Plan: Pain well-controlled. Discussed results of surgery. Vitals are stable. Office culture growing out staph. Sensitivities pending. Discussed postoperative plan including ID consult and probable IV antibiotics. Stable postoperatively. Admission and Anticipated Discharge Date Admission Date: July 25, 2024 (1) Post-operative infection Encounter type: initial encounter Postoperative infection type: deep incisional surgical site Qualified Code(s): T81.42XA - Infection following a procedure, deep incisional surgical site, initial encounter
[2024-07-26] MEDS: DOCUSATE SODIUM 100 MG CAP PO SCH (20:40)
[2024-07-26] MEDS: SENNA 8.6 MG TAB PO SCH (20:40)
--- NOTE | 2024-07-26 21:29 | Operative Report ---
Post Operative Report Pre & Post Diagnosis Operation Date: 07/26/24 11:00 Pre-Op Diagnosis: infected bka Post-Op Diagnosis: infected bka I identified the patient and participated in the time-out.: Yes Procedure Operation Date: 07/26/24 11:00 Actual Procedures p Left Knee Incision Drainage, Irrigation and Debridement(Left) - Marquis Dominguez MD s Revision Amputation Left Leg(Left) - Marquis Dominguez MD Surgeon ENRIKE Dominguez MD Forcer Maker Erik Madison DO/ Parviz Almaraz PA-C Estimated Blood Loss 50 Findings Consistent with Post-Op Diagnosis see operative report Specimens see operative report Drains hemovac x 1 Complications none Disposition Accompanied Patient To Recovery: Yes Indications This 79-year-old male presented to the office with complaints of increasing redness and drainage from his left BKA stump. He was found to have a suspected infection. He elected to proceed with surgical intervention after being educated about potential risks and outcomes. Preoperative imaging was obtained. Description of Procedure The patient was taken to the operating room where he was given general anesthesia. He was prepped and draped in the usual sterile fashion. Please see Dr. Dominguez's operative report for specifics of the procedure. I was present for the first half of the case, including patient positioning, tissue retrac tion, hemostasis, tissue debridement, and wound irrigation. The patient was taken to the recovery room in satisfactory condition upon completion of the case. I attest to the content of the Intraoperative Record and any orders documented therein. Any exceptions are noted below.
[2024-07-27 07:47] LABS: Hematocrit (blood only) 21.9 % (42.0-52.0); Hemoglobin 7.3 g/dl (14.0-18.0); Mean Corpuscular Hgb Conc 33.3 g/dL (32.0-36.0); Mean Corpuscular Volume 90.1 fL (80.0-100.0); Mean Platelet Volume 8.8 fL (9.4-12.4); Platelet Count 376 K/uL (130-400); RDW Coefficient of Variation 13.9 % (11.5-14.5); RDW Standard Deviation 46.5 fL (36.4-46.3); Red Blood Count 2.43 M/uL (4.70-6.10); White Blood Count 14.08 K/ul (4.8-10.8)
[2024-07-27] MEDS ORDERED: SODIUM CHLORIDE 0.9% 250 ML IV PRN ×2 (07:57→08:04)
--- NOTE | 2024-07-27 08:02 | Orthopedic Progress Note ---
Date of Service July 27, 2024 Assessment & Plan (1) Post-operative infection: Plan: Pain well-controlled. Afebrile vital signs stable. No recorded output from the Hemovac although there has 5 or 10 cc in the clement. Dressing is clean and dry. Office cultures grew out Staphylococcus. Sensitivities pending. Hemoglobin is 7 and hematocrit 21. Likely secondary to chronic anemia in the setting of acute postsurgical blood loss. I will order 1 unit of packed red blood cells given his health history. Will likely pull the drain later today if there is no further output. Infectious disease consultation was ordered. He can be out of bed with assistance. Continue IV antibiotics. Mechanical devices for DVT prophylaxis. Would like to hold Eliquis for short period of time postoperatively, 3 to 5 days if possible. At this point he could be covered with another anticoagulant such as Lovenox if necessary. Will discuss with medicine. Admission and Anticipated Discharge Date Admission Date: July 25, 2024 (1) Post-operative infection Encounter type: initial encounter Postoperative infection type: deep incisional surgical site Qualified Code(s): T81.42XA - Infection following a procedure, deep incisional surgical site, initial encounter
[2024-07-27 08:17] LABS: Calcium 7.7 mg/dl (8.6-10.3); Potassium 4.2 mmol/L (3.5-5.1)
[2024-07-27 08:23] LABS: BUN Creatinine Ratio 25.3 (10-20); Creatinine Clr Calc Pharmacy 58.9 ml/min; Est GFR (African American) 95.1 ml/min; Est GFR (Non-African American) 82.1 ml/min
[2024-07-27] MEDS: LANTUS PER UNIT CHARGE SC SCH (08:25)
[2024-07-27] MEDS: ENOXAPARIN INJ 40 MG/0.4 ML SYR SQ SCH (11:11)
[2024-07-27] MEDS: PANTOprazole 40 MG TAB PO SCH (11:13)
--- NOTE | 2024-07-27 11:37 | Hospitalist Progress Note ---
<Statement entered by David Jameson DO - 07/27/24 14:18> I have seen and examined the patient and have discussed the case with the provider above. I have reviewed the advanced practitioner's documentation, and I agree with, and take responsibility for that plan of care. 10 minutes spent on coordination care and evaluation patient at bedside Patient comfortable in bed, receiving PRBCs. at bedside. Plan of care as outlined below Date of Service July 27, 2024 Assessment & Plan (1) S/P BKA (below knee amputation) unilateral: (2) Post-operative infection: (3) PAD (peripheral artery disease): (4) Type 1 diabetes mellitus with complications: (5) Dyslipidemia: (6) Hypertension: (7) Hypothyroidism: Plan This is a 79-year-old male with history of coronary disease/CABG, aortic valve stenosis, peripheral vascular disease, carotid stenosis, diabetes type 1, hypertension, CKD stage III, hypothyroidism, BPH and recent BKA complicated by post-op infection who presents as a direct admission for I&D with orthopedic service. S/p left BKA Post-op infection of stump History of L BKA by Dr. Dominguez on 07/04/24 Direct admission by ortho from clinic due to concern for infection the stump S/p Left Knee I&D, Irrigation and Debridement(Left), Revision Amputation Left Leg(Left) by Dr. Dominguez on 07/26/24 Preliminary cultures growing staphylococcus, sensitivities pending ID consulted, continue empiric abx for now Ortho recommending holding Eliquis 3 days post-op For mobility, can be out of bed with assistance PT / OT consulted, patient open to returning to [facility] H/o SIADH Seen by nephro for this during previous admission in mid-June Was started on Urea BID to continue through his stay at rehab but has since been discontinued Sodium improved, 134 today Monitor with daily BMP Anemia, post-op Hgb in 9-10 range, down to 7.3 post-operatively Given history of PAD, CKD, CAD, will pursue transfusion goal > 8.0 Ortho ordered 1u prbc this morning, repeat H&H this afternoon Daily CBC CAD/CABG Peripheral Arterial disease Carotid stenosis Hypertension Follows with Dr. Farr of vascular service On apixaban 5 mg twice a day and Plavix 75 mg daily- resuming plavix this evening Continue to hold Eliquis for 1-2 more days per ortho Continue Toprol, Lipitor, amlodipine Diabetes type 1 Usually on insulin lispro and Lantus Glycemic consult placed by primary service BSG ACHS CKD stage III Cr at baseline Monitor labs Hypothyroidism Continue levothyroxine 50 mcg daily DVT Ppx: hold Eliquis for 1-1 more days per ortho, resumed plavix and Lovenox 40mg SQ daily Code status: FULL PCP: Debora Dispo: Per primary service Care coordinated with Dr. Jameson. I spent a total of 60 minutes coordinating, documenting, and providing care for this patient excluding time spent in the performance of separately billed services. Thank you for this consultation. We will follow the patient with you during their hospital stay. You can reach a [facility] via pager @ [phone]. Admission and Anticipated Discharge Date Admission Date: July 25, 2024 Subjective Seen in follow up today for Left BKA infection, status post debridement. Feeling well physically, other than feeling fatigued. No pain at stump site, comfortably playing a game on his ipad. Feels overwhelmed with recent hospitalizations and ready to get cleaned up and move to bedside chair. No F/C, lightheadedness, chest pain, SOB, N/V, abd pain, dysuria. No bowel movement in 2 days but taking stool softeners, passing gas. No other new symptoms. Review of Systems Review of Systems: At least ten systems reviewed and negative except as noted in the HPI. Physical Exam Physical Exam: General Appearance: WD/WN, vitals as above, NAD, sitting up in bed, pleasant, conversing easily, + pale Head: normocephalic, atraumatic Eyes: normal inspection Neck: normal visual inspection Respiratory: normal respiratory effort, lungs clear to auscultation, no wheeze, rales, rhonchi. No accessory muscle use Cardiovascular: regular rate, rhythm, normal peripheral pulses Abdomen/GI: normal bowel sounds, soft, nontender, no hepatosplenomegaly Extremities/Musculoskeletal: + L BKA dressing c/d/i. No drainage. RLE with teds, no edema notes. No cyanosis or clubbing, extremities motor strength 5/5 Neurologic: PERRL, EOMI, accommodation nl, no face palsy, no dysarthria, CN's II-XI intact bilaterally and moves all extremities Psychiatric: A+Ox3, anxious Skin: no rashes, warm/dry Results & Data Results & Data Vital Signs (Past 12 Hours) Vital Signs Temp Pulse Pulse Resp BP BP Pulse Ox 07/27/24 10:22 37.1 C 66 18 148/70 H 98 07/27/24 10:22 37.0 C 75 16 153/70 H 100 07/27/24 10:07 37.1 C 74 18 124/55 L 100 07/27/24 09:43 37.0 C 74 16 139/57 L 100 07/27/24 07:53 37.0 C 75 16 151/65 H 98 07/27/24 03:39 36.6 C 62 18 117/61 97 07/26/24 23:46 36.6 C 63 18 103/53 L 99 O2 Del Method 07/27/24 10:22 07/27/24 10:22 07/27/24 10:07 07/27/24 09:43 07/27/24 07:53 Room Air 07/27/24 03:39 Room Air 07/26/24 23:46 Room Air Laboratory Results Short CBC 07/27/24 Range/Units 07:24 WBC 14.08 H (4.8-10.8) K/ul Hgb 7.3 L (14.0-18.0) g/dl Hct 21.9 L (42.0-52.0) % Plt Count 376 (130-400) K/uL BMP 07/27/24 07:24 Sodium 134 L Potassium 4.2 Chloride 108 H Carbon Dioxide 21 BUN 22 Creatinine 0.87 Glucose 138 H Calcium 7.7 L Diagnostic Findings Knee X-Ray 07/26/24 11:25 FL knee LT 1 or 2V CLINICAL HISTORY: LT KNEE REVISION/AMPUTATION COMPARISON STUDY: 07/25/2024 FLUOROSCOPY TIME: 2.9 seconds FLUOROSCOPY IMAGES: 1 EXPOSURE DOSE: 0.13 mGy FINDINGS: Status post below the knee dilatation with soft tissue swelling and arterial calcifications. Expected postoperative deep tissue air. IMPRESSION: Fluoroscopic assistance as above. ACT 112: Negative or not required by law. Electronically signed by: Juan Lou M.D. 07/26/2024 1:11 PM (2) Post-operative infection Encounter type: initial encounter Postoperative infection type: deep incisional surgical site Qualified Code(s): T81.42XA - Infection following a procedure, deep incisional surgical site, initial encounter
--- NOTE | 2024-07-27 12:10 | Pharmacy Report ---
Pharmacy Glycemic Short Note 2 - Date of Service July 27, 2024 - Glycemic Short BSG Results (Last 24 hours): 07/26/24 07/26/24 07/26/24 13:28 16:32 20:43 Glucose POC Glucose 96 79 278 H 07/27/24 07/27/24 07/27/24 07:17 07:24 11:56 Glucose 138 H POC Glucose 131 H 217 H OUTPATIENT ANTIDIABETIC REGIMEN: * Lantus 14 units QAM * Humalog SS (TDD 30) * 3 units with BF * 3-5 units with VICENTA * 4-10 units with DIN ASSESSMENT: 07/27 * Patient received total of 19 units of insulin yesterday of which 11 units were basal (decreased for NPO status) * Fasting BSG 131 mg/dL - will resume home basal of 14 units this AM as diet now ordered 07/26 * Patient received total of 19 units of insulin yesterday, of which 14 units were basal (home dose/taken [employer]) * Fasting BSG 137 mg/dL - patient NPO for procedure today, will reduce ~20% to 11 units basal this AM for NPO status * No change to CF/CR 07/25 * Tre is a 79 YOM admitted with a post operative stump infection and a history of type 1 diabetes mellitus. Pharmacy has been consulted to assist with glycemic management while inpatient. * Confirmed with RN that he did take his basal insulin this morning, dinnertime BSGs elevated in low 200s, will add a small additional dose of Lantus this evening if BSGs remain elevated. He is receiving vancomycin and cefepime for his infection. * Novolog initiated between a weight based stress of 2-3, has required tighter parameters on previous admissions. PLAN FOR INPATIENT GLYCEMIC CONTROL: * Hold outpatient oral diabetes medications * Basal insulin * Lantus 14 units daily * Bolus insulin * NovoLog per scale ACHS or Q6hrs while NPO * Goal Range: Low 110 mg/dL - High 140 mg/dL * Correction Factor: 30 mg/dL/unit * Nutritional / Prandial insulin per carb ratio of 1 unit per 10 grams CHO consumed
--- NOTE | 2024-07-27 16:27 | Infectious Disease Consult ---
Date of Consultation July 27, 2024 Assessment & Plan (1) Post-operative infection: (2) S/P BKA (below knee amputation) unilateral: (3) PAD (peripheral artery disease): Plan 79-year-old man with a past medical history of CAD status post CABG, aortic valve stenosis, CKD stage III, DM1, PVD, right great toe partial amputation, left foot necrosis status post left BKA on 07/04/2024 presents as a direct admit for evaluation of left BKA site infection and surgical intervention. He was initially doing well postop and on Wednesday07/22/2024 he fell while transferring out of bed and landed on his right knee and left BKA stump. He was initially seen in the ED for increasing stump site edema and bruising and was discharged. He denied any associated fever, chills, sweats, nausea, vomiting, shortness of breath, drainage from BKA site. The stump was dressed for few days. He fol lowed up at his orthopedic surgeons office on 07/25/2024. Upon removal of the dressing there was concern for infection at stump site and drainage was noted. This area was cultured. It is growing staph species. He was directly admitted on 07/25/2024 for irrigation and debridement with possible revision of the amputation site. On admission he is afebrile and hemodynamically stable. Labs: WBC 15.35, platelets 499, ESR 80, BUN 37, creatinine 1.02, CRP 9.69. LLE x-ray showed status post below the knee dilatation with soft tissue swelling and arterial calcifications. He underwent left knee incision and drainage, irrigation and debridement with revision of the amputation on 07/26/2024. Deep cultures of the left BKA sent for aerobic, anaerobic cultures and Gram stain. Resected bone and soft tissue sent for pathology. He is currently on IV vancomycin and cefepime. Intraoperative cultures also growing staph species pending susceptibility. ID asked to consult for left BKA site infection. On my initial evaluation patient is comfortable. Left BKA site pain is controlled. He denies fever or chills. Microbiology: Wound culture /3 G/S few GPC in clusters: Many Staphylococcus species (pr eliminary) Wound culture 07/26 ( OR ) G/S few GPC in clusters: Moderate Staphylococcus species (preliminary) Antibiotics Vancomycin 07/25ongoing Cefepime #Left BKA site SSTI ; rule out deep space infection - sp I and d , cx and bone sent + staph sp so far # R LE chronic ulcers- no acute infection #DM1 #PAD # Leukocytosis -WBC 15.5=35-->13.53-->14.08 #Amoxicillin/clav, trimethoprim/sulfa Side effects: vomiting He likely has a SSTI at the left BKA site, however will await intraoperative cultures and pathology as well as input from Ortho on concerns for deep space/bone infection. For SSTI, a short course of 10 to 14 days of oral antibiotics would be sufficient. If patient has bone infection, then a longer course of IV antibiotics warranted. So far outpatient and OR cultures growing staph species only. Cultures have not yet finalized. He has no hardware, grafts or prosthetics in LLE. Recommendations: -Continue IV vancomycin per pharmacy protocol -Discontinued Cefepime as only gpc/staph sp growing in all cultures to date. -Follow up staph species susceptibilities from 07/25 and 07/26 ( OR cx) -Follow up bone pathology. If bone pathology margins clear and no evidence of residual infection or no concerns or bone infection per ortho, will treat as SSTI with a short course of oral antibiotics. If concerns for deep space infection/bone infection then will need 6 weeks of IV antibiotics -Monitor WBC . Thank you for this consult. ID will continue to follow Sharri Teixeira MD, MPH Infectious Disease [facility], [facility] Call [phone] with questions Consultation Information Consultation was provided via telemedicine using two-way real-time interactive telecommunication between the patient and the telemedicine provider. For the duration of the visit, the provider was performing the assessment from a different facility than the patient. This includesuse of bluetooth stethoscope forauscultationperformed by the telepresenter that the telemedicine provider can hear if described in the physical exam. Lead Neurodiagnostic Technologist contact information: Please call [facility] Call Center . (Phone Number For Physician Use Only) After establishing a telemedicine visit, patient was: Patient was verified with two unique identifiers Time Spent with Patient: Initial => 75 min History of Present Illness Reason for Consultation: Left BKA infection Requesting Physician: Marquis Dominguez MD Attending Physician: Marquis Dominguez MD Allergies Allergy/AdvReac Type Severity Reaction Status Date / Time amoxicillin [From Augmentin] AdvReac Severe Vomiting Verified 07/26/24 10:26 clavulanic acid AdvReac Severe Vomiting Verified 07/26/24 10:26 [From Augmentin] codeine AdvReac Severe Vomiting Verified 07/26/24 10:26 sulfamethoxazole AdvReac Severe Vomiting Verified 07/26/24 10:26 [From Bactrim] trimethoprim [From Bactrim] AdvReac Severe Vomiting Verified 07/26/24 10:26 Home Medications Medication Instructions Recorded Confirmed Type atorvastatin 40 mg tablet (Lipitor) 40 mg PO 1700 08/24/19 07/25/24 History cholecalciferol (vitamin D3) 50 2,000 units PO 1200 #90 caps 08/24/19 07/25/24 History mcg (2,000 unit) capsule coenzyme Q10 100 mg capsule 100 mg PO QPM 08/24/19 07/25/24 History levothyroxine 50 mcg tablet 50 mcg PO QAM #90 tabs 08/24/19 07/25/24 History cdeuidhb-aoiwqmov-hxbri acid 400 1 tab PO DAILY 08/24/19 07/25/24 History mcg-vit K 20 mcg-lycop 300 mcg tablet (One-A-Day Men's Multivitamin) glucagon (human recombinant) 1 mg 1 mg subcut Q20M PRN hypoglycemia 09/15/19 07/25/24 Rx solution for injection (Glucagon #1 ea Emergency Kit) alendronate 35 mg tablet 35 mg PO WK 05/22/24 07/25/24 History cetirizine 10 mg tablet (Allergy 10 mg PO QPM 05/22/24 07/25/24 History Relief (cetirizine)) insulin glargine 100 unit/mL 14 unit subcut QAM 05/22/24 07/25/24 History subcutaneous solution (Lantus U-100 Insulin) insulin lispro 100 unit/mL See Rx Instructions subcut .COMPLEX 05/22/24 07/25/24 History subcutaneous pen (Humalog KwikPen (U-100) Insulin) timolol 0.25 % eye drops 1 drp ophthalmic (eye) BID 05/22/24 07/25/24 History apixaban 5 mg tablet (Eliquis) 5 mg PO BID #60 tabs 06/06/24 07/25/24 Rx brimonidine 0.1 % eye drops 1 drp ophthalmic (eye) BID 06/27/24 07/25/24 History (Alphagan P) amlodipine 2.5 mg tablet 2.5 mg PO 1200 06/29/24 07/25/24 History clopidogrel 75 mg tablet 75 mg PO QPM 06/29/24 07/25/24 History metoprolol succinate 50 mg 50 mg PO DAILY 06/29/24 07/25/24 History tablet,extended release 24 hr acetaminophen 500 mg tablet 1,000 mg (2 x 500 mg) PO Q8H PRN 07/07/24 07/25/24 Rx (Tylenol Extra Strength) pain #30 tabs Patient History Medical History On anticoagulant therapy preventative treatment for a clot that developed during patient's angiogram at [facility] 05/2024 Necrosis left foot toes and base of foot -> reason for the doxycycline prophylactic treatment History of flexible sigmoidoscopy Glaucoma S/P angiogram of extremity left leg (05/2024) at [facility] with Dr. Farr left leg (11/2023) [facility] Chronic kidney disease stage 3 Proliferative diabetic retinopathy Osteopenia CAD (coronary artery disease) Amputation of toe of right foot partial big toe amputation Ashlie thyroiditis per medical record, pt unaware PVD (peripheral vascular disease) Type 1 diabetes Hyperlipidemia Hypertension Hypothyroidism Surgical History History of colonoscopy S/P eye surgery retinopexy bilateral laser surgery History of cataract surgery bilateral History of cardiac cath (09/2003) at [facility]. 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 at [facility] Family History Father Gout Other No family history of adverse response to anesthesia Social History Smoking Status: Never smoker Second Hand Exposure: No; Do You Dip or Chew Tobacco: No; Hx Alcohol Use: Yes Hx Substance Use: No Preferred Language: Cymraes Communication Ability: Effective Development Scientist Required: No Beliefs That Will Affect Care: None Current Living Situation: Spouse Other Information That Helps Us Care for You: No Feels Safe at Home: Yes Safety Concerns: Feels Safe At This Time Assistive Devices: Cane and Walker Review of System A 10 point ROS obtained. Pertinent positives as per HPI. Physical Exam Physical Exam: Gen- NAD HEENT- NCAT, Anicteric sclera Neck- supple Lung- No increased work of breathing Abd- soft, not tender, not distended Ext- RLE with non tender heel blister, second toe blister- no s/o infection. Left BKA sp OR, dressed , hemovac in place with some sanguinous drainage. Dresing dry. Neuro- AAO*3 Psych- normal mod, pleasant Results & Data Vital Signs (Past 12 Hours) Vital Signs Temp Pulse Pulse Resp BP BP Pulse Ox 07/27/24 13:52 37.1 C 69 18 127/57 L 98 07/27/24 12:52 37.1 C 67 16 135/71 97 07/27/24 11:52 37.1 C 69 18 157/71 H 99 07/27/24 11:22 37.1 C 67 18 157/70 H 98 07/27/24 11:00 37.1 C 66 18 140/70 100 07/27/24 10:52 37.1 C 66 18 148/70 H 98 07/27/24 10:22 37.1 C 66 18 148/70 H 98 07/27/24 10:22 37.0 C 75 16 153/70 H 100 07/27/24 10:07 37.1 C 74 18 124/55 L 100 07/27/24 09:43 37.0 C 74 16 139/57 L 100 07/27/24 07:53 37.0 C 75 16 151/65 H 98 O2 Del Method 07/27/24 13:52 07/27/24 12:52 07/27/24 11:52 07/27/24 11:22 07/27/24 11:00 Room Air 07/27/24 10:52 07/27/24 10:22 07/27/24 10:22 07/27/24 10:07 07/27/24 09:43 07/27/24 07:53 Room Air Laboratory Results Laboratory Results - last 48 hr 07/25/24 07/25/24 07/25/24 15:04 16:36 20:37 WBC RBC Hgb Hct MCV MCH MCHC RDW Std Deviation RDW Coeff of Swetha Plt Count MPV Absolute Nucleated RBC Nucleated RBC % (auto) Sodium Potassium Chloride Carbon Dioxide Anion Gap BUN Creatinine Est Cr Clr Drug Dosing Est GFR ( Amer) Est GFR (Non-Af Amer) BUN/Creatinine Ratio Glucose POC Glucose 207 H 171 H Calcium Blood Type O Negative Antibody Screen NEGATIVE Crossmatch See Detail 07/26/24 07/26/24 07/26/24 00:47 05:53 07:20 WBC 13.53 H RBC 2.92 L Hgb 8.7 L Hct 26.4 L MCV 90.4 MCH 29.8 MCHC 33.0 RDW Std Deviation 46.6 H RDW Coeff of Swetha 14.0 Plt Count 415 H MPV 8.8 L Absolute Nucleated RBC 0.03 Nucleated RBC % (auto) 0.2 Sodium 133 L Potassium 3.9 Chloride 105 Carbon Dioxide 24 Anion Gap 4 BUN 29 H Creatinine 1.05 Est Cr Clr Drug Dosing 48.8 Est GFR ( Amer) 77.9 Est GFR (Non-Af Amer) 67.2 BUN/Creatinine Ratio 27.6 H Glucose 137 H POC Glucose 78 166 H Calcium 8.0 L Blood Type Antibody Screen Crossmatch 07/26/24 07/26/24 07/26/24 10:33 13:28 16:32 WBC RBC Hgb Hct MCV MCH MCHC RDW Std Deviation RDW Coeff of Swetha Plt Count MPV Absolute Nucleated RBC Nucleated RBC % (auto) Sodium Potassium Chloride Carbon Dioxide Anion Gap BUN Creatinine Est Cr Clr Drug Dosing Est GFR ( Amer) Est GFR (Non-Af Amer) BUN/Creatinine Ratio Glucose POC Glucose 124 H 96 79 Calcium Blood Type Antibody Screen Crossmatch 07/26/24 07/27/24 07/27/24 20:43 07:17 07:24 WBC 14.08 H RBC 2.43 L Hgb 7.3 L Hct 21.9 L MCV 90.1 MCH 30.0 MCHC 33.3 RDW Std Deviation 46.5 H RDW Coeff of Swetha 13.9 Plt Count 376 MPV 8.8 L Absolute Nucleated RBC Nucleated RBC % (auto) Sodium 134 L Potassium 4.2 Chloride 108 H Carbon Dioxide 21 Anion Gap 5 BUN 22 Creatinine 0.87 Est Cr Clr Drug Dosing 58.9 Est GFR ( Amer) 95.1 Est GFR (Non-Af Amer) 82.1 BUN/Creatinine Ratio 25.3 H Glucose 138 H POC Glucose 278 H 131 H Calcium 7.7 L Blood Type Antibody Screen Crossmatch 07/27/24 11:56 WBC RBC Hgb Hct MCV MCH MCHC RDW Std Deviation RDW Coeff of Swetha Plt Count MPV Absolute Nucleated RBC Nucleated RBC % (auto) Sodium Potassium Chloride Carbon Dioxide Anion Gap BUN Creatinine Est Cr Clr Drug Dosing Est GFR ( Amer) Est GFR (Non-Af Amer) BUN/Creatinine Ratio Glucose POC Glucose 217 H Calcium Blood Type Antibody Screen Crossmatch Diagnostic Findings Microbiology 07/26/24 Unknown Leg,Left Gram Stain - Final 07/26/24 Unknown Leg,Left Aerobic and Anaerobic Culture - Preliminary Staphylococcus species Knee X-Ray 07/26/24 11:25 FL knee LT 1 or 2V CLINICAL HISTORY: LT KNEE REVISION/AMPUTATION COMPARISON STUDY: 07/25/2024 FLUOROSCOPY TIME: 2.9 seconds FLUOROSCOPY IMAGES: 1 EXPOSURE DOSE: 0.13 mGy FINDINGS: Status post below the knee dilatation with soft tissue swelling and arterial calcifications. Expected postoperative deep tissue air. IMPRESSION: Fluoroscopic assistance as above. ACT 112: Negative or not required by law. Electronically signed by: Juan Lou M.D. 07/26/2024 1:11 PM Medications Administered Home Medications Medication Instructions Recorded Confirmed Last Taken atorvastatin 40 mg tablet (Lipitor) 40 mg PO 1700 08/24/19 07/25/24 07/03/24 18:00 cholecalciferol (vitamin D3) 50 2,000 units PO 1200 #90 caps 08/24/19 07/25/24 07/03/24 12:00 mcg (2,000 unit) capsule coenzyme Q10 100 mg capsule 100 mg PO QPM 08/24/19 07/25/24 07/03/24 18:00 levothyroxine 50 mcg tablet 50 mcg PO QAM #90 tabs 08/24/19 07/25/24 07/04/24 07:30 pslqpjip-wulevsgi-mrwae acid 400 1 tab PO DAILY 08/24/19 07/25/24 07/03/24 08:00 mcg-vit K 20 mcg-lycop 300 mcg tablet (One-A-Day Men's Multivitamin) glucagon (human recombinant) 1 mg 1 mg subcut Q20M PRN hypoglycemia 09/15/19 07/25/24 Unknown solution for injection (Glucagon #1 ea Emergency Kit) alendronate 35 mg tablet 35 mg PO WK 05/22/24 07/25/24 07/02/24 cetirizine 10 mg tablet (Allergy 10 mg PO QPM 05/22/24 07/25/24 07/03/24 18:00 Relief (cetirizine)) insulin glargine 100 unit/mL 14 unit subcut QAM 05/22/24 07/25/24 07/04/24 07:30 subcutaneous solution (Lantus U-100 Insulin) insulin lispro 100 unit/mL See Rx Instructions subcut .COMPLEX 05/22/24 07/25/24 07/03/24 18:00 subcutaneous pen (Humalog KwikPen (U-100) Insulin) timolol 0.25 % eye drops 1 drp ophthalmic (eye) BID 05/22/24 07/25/24 07/04/24 0 7:30 apixaban 5 mg tablet (Eliquis) 5 mg PO BID #60 tabs 06/06/24 07/25/24 06/30/24 brimonidine 0.1 % eye drops 1 drp ophthalmic (eye) BID 06/27/24 07/25/24 07/04/24 07:30 (Alphagan P) amlodipine 2.5 mg tablet 2.5 mg PO 1200 06/29/24 07/25/24 07/03/24 12:00 clopidogrel 75 mg tablet 75 mg PO QPM 06/29/24 07/25/24 06/30/24 metoprolol succinate 50 mg 50 mg PO DAILY 06/29/24 07/25/24 07/04/24 07:30 tablet,extended release 24 hr acetaminophen 500 mg tablet 1,000 mg (2 x 500 mg) PO Q8H PRN 07/07/24 07/25/24 Unknown (Tylenol Extra Strength) pain #30 tabs Active Medications Generic Name Dose Route Start Last Admin Trade Name Freq PRN Reason Stop Dose Admin Acetaminophen 1,000 mg 07/25/24 16:30 07/27/24 08:25 Acetaminophen 500 Mg Tab PO 08/24/24 16:29 1,000 mg Q8H LUIS MANUEL Administration Amlodipine Besylate 2.5 mg 07/26/24 12:00 07/27/24 11:53 Amlodipine Besylate 5 Mg Tab PO 08/25/24 11:59 2.5 mg 1200 LUIS MANUEL Administration Atorvastatin Calcium 40 mg 07/25/24 17:00 07/26/24 17:13 Atorvastatin 40 Mg Tab PO 08/24/24 16:59 40 mg 1700 LUIS MANUEL Administration Brimonidine Tartrate 1 drops 07/25/24 23:30 07/27/24 08:24 Brimonidine Tartrate-P 0.15% 5 Ml Btl OP 08/24/24 23:29 1 drops BID LUIS MANUEL Administration Cetirizine HCl 10 mg 07/25/24 21:00 07/26/24 20:40 Cetirizine Hcl 10 Mg Tablet PO 08/24/24 20:59 10 mg QPM LUIS MANUEL Administration Docusate Sodium 100 mg 07/26/24 21:00 07/27/24 08:25 Docusate Sodium 100 Mg Cap PO 08/25/24 20:59 100 mg BID LUIS MANUEL Administration Enoxaparin Sodium 40 mg 07/27/24 10:00 07/27/24 11:11 Enoxaparin Inj 40 Mg/0.4 Ml Syr SQ 08/26/24 09:59 40 mg QAM LUIS MANUEL Administration Hydromorphone HCl 0.5 mg 07/25/24 16:27 07/26/24 13:40 Hydromorphone Inj 0.5 Mg/0.5 Ml Syr IV 08/08/24 16:26 0.5 mg Q6H PRN Administration Severe Pain (Scale 7, 8, 9,10) Sodium Chloride 1,000 mls @ 80 mls/hr 07/25/24 13:15 07/27/24 11:21 Nss IV 08/24/24 13:14 0 mls/hr .[id number] LUIS MANUEL Infusion Cefepime HCl 2,000 mg/ Syringe 20 mls @ 5 mls/min 07/26/24 05:00 07/27/24 05:49 IV 08/02/24 04:59 5 mls/min Q12H LUIS MANUEL Administration Protocol Vancomycin HCl 1,250 mg/ 275 mls @ 200 mls/hr 07/26/24 06:00 07/27/24 08:38 Sodium Chloride IV 08/02/24 05:59 Infused Q24H LUIS MANUEL Infusion Sodium Chloride 1,000 mls @ 15 mls/hr 07/26/24 10:45 07/27/24 11:23 Nss IV 08/25/24 10:44 Not Given .Q24H LUIS MANUEL Insulin Aspart 0 units 07/26/24 16:30 07/27/24 12:06 Insulin Aspart Per Unit Charge SC 08/25/24 16:29 6 units ACHS LUIS MANUEL Administration Insulin Glargine 14 units 07/27/24 09:00 07/27/24 08:25 Lantus Per Unit Charge SC 08/26/24 08:59 14 units DAILY LUIS MANUEL Administration Levothyroxine Sodium 50 mcg 07/26/24 06:30 07/27/24 05:55 Levothyroxine Sodium 50 Mcg Tablet PO 08/25/24 06:29 50 mcg DAILYBB LUIS MANUEL Administration Metoprolol Succinate 50 mg 07/25/24 21:00 07/27/24 08:24 Metoprolol Succ 50mg Ext Rel Tab PO 08/24/24 20:59 50 mg BID LUIS MANUEL Administration Multivitamins/Minerals 1 tab 07/26/24 09:00 07/27/24 08:24 Cerovite Adv Formula Tab PO 08/25/24 08:59 1 tab DAILY LUIS MANUEL Administration Oxycodone HCl 5 mg 07/25/24 16:24 07/25/24 21:21 Oxycodone Hcl Ir 5 Mg Tab (Immediate Release) PO 08/08/24 16:23 5 mg Q6H PRN Administration Mod-Sev Pain (Scale 4-10) Pantoprazole Sodium 40 mg 07/27/24 09:00 07/27/24 11:13 Pantoprazole 40 Mg Tab PO 08/26/24 08:59 40 mg QAM LUIS MANUEL Administration Sennosides 17.2 mg 07/26/24 21:00 07/26/24 20:40 Senna 8.6 Mg Tab PO 08/25/24 20:59 17.2 mg HS LUIS MANUEL Administration Timolol Maleate 1 drops 07/25/24 21:00 07/27/24 08:23 Timolol Maleate 0.25% Op Soln 5 Ml Btl OP 08/24/24 20:59 1 drops BID LUIS MANUEL Administration Vitamin D 50 mcg 07/26/24 12:00 07/27/24 11:53 Cholecalciferol 25 Mcg (1000 Units) Tab PO 10/04/24 11:59 50 mcg 1200 LUIS MANUEL Administration (1) Post-operative infection Encounter type: initial encounter Postoperative infection type: deep incisional surgical site Qualified Code(s): T81.42XA - Infection following a procedure, deep incisional surgical site, initial encounter
--- NOTE | 2024-07-27 16:45 | Orthopedic Progress Note ---
Date of Service July 27, 2024 Assessment & Plan (1) Post-operative infection: Plan: Postop day 1-status post irrigation, debridement and revision amputation left lower extremity with Dr. Dominguez. May be out of bed, nonweightbearing left lower extremity. Elevate left leg above heart to relieve pain and swelling. Ice to left leg as needed for pain. Hemovac in place, functioning but removed today. Will plan to remove Colindres in the morning. Will check H&H tomorrow morning as well. Patient seen by infectious disease today, note is currently pending. Will plan to change dressings of the left lower extremity tomorrow. Continue IV antibiotics as ordered. Continue regular diet. Patient is in agreement with plan thus far. Appreciate medicine input and assistance. Case management for disposition needs. Patient would like to potentially go back to [facility]. (2) Hemorrhage from wound: Plan: Waffle boots in place. Keep heel off of bed at all times. Wound care as per the wound care nurse. Will continue to follow. Admission and Anticipated Discharge Date Admission Date: July 25, 2024 Subjective Patient is resting in bed. Status post a transfusion.States that he is currently "confused". He states that his nurse was trying to get him out of bed but he did not want to get out of bed until he talked with Dr. Dominguez. He had a consultation with infectious disease today. He states that they recommended IV antibiotics and most likely oral suppressive antibiotics in the future. He also is concerned about his right heel. He had some pressure blisters that formed when he was at [facility] recently and now it "looks worse and more concerning". He was also seen and evaluated by the wound care nurse which painted it with Betadine swab. Denies any pain in his right heel. He also has a wound on the second toe that is managed by the wound clinic as well. No pain or issues with the left leg. Hemovac is in place but not draining much. Has it elevated on a pillow. Physical Exam Musculoskeletal: Exam of his right lower extremity: He does have a large, 50 cent sized Blood blister at his right heel. It is nontender with palpation. Does not have any erythema or underlying fluctuance. There is some mild blister formation but no underlying fluctuance . No open wounds. No open drainage. Exam of the left lower extremity:Postoperative dressings of the left lower extremity are clean, dry and intact. His Hemovac is in place and removed today. Results & Data Vital Signs (Past 12 Hours) Vital Signs Temp Pulse Pulse Resp BP BP Pulse Ox 07/27/24 16:30 37.0 C 71 16 125/64 99 07/27/24 13:52 37.1 C 69 18 127/57 L 98 07/27/24 12:52 37.1 C 67 16 135/71 97 07/27/24 11:52 37.1 C 69 18 157/71 H 99 07/27/24 11:22 37.1 C 67 18 157/70 H 98 07/27/24 11:00 37.1 C 66 18 140/70 100 07/27/24 10:52 37.1 C 66 18 148/70 H 98 07/27/24 10:22 37.1 C 66 18 148/70 H 98 07/27/24 10:22 37.0 C 75 16 153/70 H 100 07/27/24 10:07 37.1 C 74 18 124/55 L 100 07/27/24 09:43 37.0 C 74 16 139/57 L 100 07/27/24 07:53 37.0 C 75 16 151/65 H 98 O2 Del Method 07/27/24 16:30 Room Air 07/27/24 13:52 07/27/24 12:52 07/27/24 11:52 07/27/24 11:22 07/27/24 11:00 Room Air 07/27/24 10:52 07/27/24 10:22 07/27/24 10:22 07/27/24 10:07 07/27/24 09:43 07/27/24 07:53 Room Air Laboratory Results 07/27/24 07/27/24 07/27/24 Range/Units 16:38 11:56 07:24 WBC 14.08 H (4.8-10.8) K/ul RBC 2.43 L (4.70-6.10) M/uL Hgb 7.3 L (14.0-18.0) g/dl Hct 21.9 L (42.0-52.0) % MCV 90.1 (80.0-100.0) fL MCH 30.0 (25.0-34.0) pg MCHC 33.3 (32.0-36.0) g/dL RDW Std Deviation 46.5 H (36.4-46.3) fL RDW Coeff of Swetha 13.9 (11.5-14.5) % Plt Count 376 (130-400) K/uL MPV 8.8 L (9.4-12.4) fL Sodium 134 L (136-145) mmol/L Potassium 4.2 (3.5-5.1) mmol/L Chloride 108 H (98-107) mmol/L Carbon Dioxide 21 (21-32) mmol/L Anion Gap 5 (3-11) BUN 22 (6-23) mg/dl Creatinine 0.87 (0.6-1.4) mg/dl Est Cr Clr Drug Dosing 58.9 ml/min Est GFR ( Amer) 95.1 ml/min Est GFR (Non-Af Amer) 82.1 ml/min BUN/Creatinine Ratio 25.3 H (10-20) Glucose 138 H (70-99(Fasting)) mg/dl POC Glucose 241 H 217 H (70-99) mg/dl Calcium 7.7 L (8.6-10.3) mg/dl Blood Type Antibody Screen Crossmatch 07/27/24 07/26/24 07/25/24 Range/Units 07:17 20:43 15:04 WBC (4.8-10.8) K/ul RBC (4.70-6.10) M/uL Hgb (14.0-18.0) g/dl Hct (42.0-52.0) % MCV (80.0-100.0) fL MCH (25.0-34.0) pg MCHC (32.0-36.0) g/dL RDW Std Deviation (36.4-46.3) fL RDW Coeff of Swetha (11.5-14.5) % Plt Count (130-400) K/uL MPV (9.4-12.4) fL Sodium (136-145) mmol/L Potassium (3.5-5.1) mmol/L Chloride (98-107) mmol/L Carbon Dioxide (21-32) mmol/L Anion Gap (3-11) BUN (6-23) mg/dl Creatinine (0.6-1.4) mg/dl Est Cr Clr Drug Dosing ml/min Est GFR ( Amer) ml/min Est GFR (Non-Af Amer) ml/min BUN/Creatinine Ratio (10-20) Glucose (70-99(Fasting)) mg/dl POC Glucose 131 H 278 H (70-99) mg/dl Calcium (8.6-10.3) mg/dl Blood Type O Negative Antibody Screen NEGATIVE Crossmatch See Detail Microbiology 07/26/24 Unknown Gram Stain - Final Leg,Left Aerobic and Anaerobic Culture - Preliminary Staphylococcus species (1) Post-operative infection Encounter type: initial encounter Postoperative infection type: deep incisional surgical site Qualified Code(s): T81.42XA - Infection following a procedure, deep incisional surgical site, initial encounter
[2024-07-27 19:34] LABS: Hematocrit (blood only) 25.2 % (42.0-52.0); Hemoglobin 8.3 g/dl (14.0-18.0)
[2024-07-27] MEDS: CLOPIDOGREL BISULFATE 75 MG TAB PO SCH (20:37)
[2024-07-28 06:04] LABS: Hematocrit (blood only) 25.9 % (42.0-52.0); Hemoglobin 8.7 g/dl (14.0-18.0); Mean Corpuscular Hemoglobin 30.1 pg (25.0-34.0); Mean Corpuscular Hgb Conc 33.6 g/dL (32.0-36.0); Mean Corpuscular Volume 89.6 fL (80.0-100.0); Mean Platelet Volume 9.1 fL (9.4-12.4); Platelet Count 326 K/uL (130-400); RDW Standard Deviation 45.9 fL (36.4-46.3); Red Blood Count 2.89 M/uL (4.70-6.10); White Blood Count 10.33 K/ul (4.8-10.8)
[2024-07-28] MEDS: VANCOMYCIN LEVEL ONE (06:18)
[2024-07-28 06:22] LABS: BUN Creatinine Ratio 22.2 (10-20); Creatinine Clr Calc Pharmacy 47.5 ml/min; Est GFR (African American) 75.3 ml/min; Est GFR (Non-African American) 64.9 ml/min; Potassium 4.1 mmol/L (3.5-5.1)
[2024-07-28 08:14] VITALS: RESP 16
[2024-07-28] MEDS ORDERED: LANTUS PER UNIT CHARGE SC SCH (09:00)
[2024-07-28] MEDS: MAGNESIUM HYDROXIDE SUSP 30 ML UDC PO PRN (09:07)
[2024-07-28] MEDS: LANTUS PER UNIT CHARGE SC SCH (09:07)
--- NOTE | 2024-07-28 09:28 | Pharmacy Report ---
Pharmacy PK ABX Note - Date of Service July 28, 2024 - Assessment and Plan Assessment 07/28 * Random vancomycin collected this morning was 10.4. The level correlates with vanco AUC of 551. Since at goal, current regimen of vancomycin 1250mg q24 hours will be continued. Cultures growing MRSA, awaiting sensitivities. 07/25 * 79 year old M receiving vancomycin/cefepime for treatment of BKA site infection post-op 07/04/24. Pertinent microbiologic data includes: No cultures ordered at this time, but I&D scheduled for tomorrow. Plan Vancomycin * Continue vancomycin 1250mg q 24 hours * Could consider ordering vanco level in the next 2-3 days if continued. Pharmacy will continue to follow and will adjust dose/frequency as necessary. Thank you. Pharmacy has transitioned to AUC monitoring for vancomycin. AUC/SHIRA is the preferred PK/PD target and is associated with decreased risk of nephrotoxicity compared to traditional trough targets.
--- NOTE | 2024-07-28 10:55 | Infectious Disease Progress Nt ---
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 He was initially doing well postop and on Wednesday07/22/2024, he fell while transferring out of bed and landed on his right knee and left BKA stump. He was initially seen in the ED for increasing stump site edema and bruising and was discharged. He denied any associated fever, chills, sweats, nausea, vomiting, shortness of breath, drainage from BKA site. The stump was dressed for few days. He followed up at his orthopedic surgeons office on 07/25/2024. Upon removal of the dressing there was concern for infection at stump site and drainage was noted. This area was cultured. It grew staph species ( prelim). He was directly admitted on 07/25/2024 for irrigation and debridement with possible revision of the amputation site. On admission he is afebrile and hemodynamically stable. Labs: WBC 15.35, platelets 499, ESR 80, BUN 37, creatinine 1.02, CRP 9.69. LLE x-ray showed status post below the knee dilatation with soft tissue swelling and arterial calcifications. He underwent left knee incision and drainage, irrigation and debridement with revision of the amputation on 07/26/2024. Deep cultures of the left BKA sent for aerobic, anaerobic cultures and Gram stain. Resected bone and soft tissue removed but not sent for pathology. He is currently on IV vancomycin and cefepime. Intraoperative cultures and outpt cultures growing MRSA. ID asked to consult for left BKA site infection. On my initial evaluation patient is comfortable. Left BKA site pain is controlled. He denies fever or chills. Microbiology: Wound culture 07/25 ( out pt) G/S few GPC in clusters: Many MRSA (S vanco, Dapto, tmp/sulfa) Wound culture 07/26 ( OR ) G/S few GPC in clusters: Moderate MRSA (preliminary) Antibiotics Vancomycin Cefepime Daptomycin 07/28-ongoing #Left BKA site SSTI ; rule out deep space infection - sp I and D, MRSA so far # R LE chronic ulcers- no acute infection #DM1 #PAD # Leukocytosis -WBC 15.5->13.53-->14.08 --> 10.33 #Amoxicillin/clav, trimethoprim/sulfa Side effects: vomiting # Elevated inflammatory markers - ESR 80, crp >9 Discussion: possible SSTI at the left BKA site, however can not rule out a deeper space infection. I discussed with Ortho concerns for deep space/bone infection. Suspicion for bone infection is lower, but no bone path available and based on appearance of soft tissue, ortho would prefer a longer course of antibiotics for a deeper space infection. He has no hardware, grafts or prosthetics in LLE. WBC downtrending. Anticipate 6 weeks of IV abx therapy from OR date Recommendations: -Discontinued IV vancomycin - Started Daptomycin 8 mg/kg Iv daily ( cr cl ~47.5) for Mrsa deep skin/st infection ( 07/26/2024-09/06/2024) . CPK ordered. Monitor CPK closely as pt also on atorvastatin. Can consider stopping IV abx at 4 weeks as no definitive osteomyelitis ( to end 08/23/24) and completing remaining 2 weeks of abx on linezolid 600 mg po bid to end 09/06/2024 ( normal plts, not on SSRI) . Would not recommend Linezolid use for longer than 2 weeks given side effects. -Follow up 07/26 ( OR cx) to finalization to ensure no other organism growing. - Can place PICC line - Check weekly CBC with diff, BMP, LFT, CPK, ESR, CRP on antibiotics - Establish care with Local [facility] - Close Orthopedics follow up D/W ortho. ID will sign off. Call [phone] with questions or OR cx growing an organism other than MRSA. Sharri Teixeira MD, MPH Infectious Disease ID Connect [facility], ID Division Admission and Anticipated Discharge Date Admission Date: July 25, 2024 Subjective This patient recommendation is based on a telemedicine consult request which was completed asynchronously through chart review and information provided by the primary physician. The patient was not seen or examined today. The evaluation is consultative in nature and all patient care and treatment decisions can either be accepted or rejected by the patient's primary hospital-based treating physician using their own independent medical judgment for their patient. Time Spent Reviewing Chart: 21 - 30 minutes Discussed case with ortho. No bone path available at this time. Possible that he may have a deeper space infection outpatient cultures finalized as MRSA OR cx with MRSA so far He is afebrile WBc 10.33, cr 1.08 Results & Data Vital Signs (Past 12 Hours) Vital Signs Temp Pulse Resp BP Pulse Ox O2 Del Method 07/28/24 08:13 36.4 C L 72 16 160/62 H 99 Room Air Laboratory Results 07/26/24 Unknown Gram Stain - Final Leg,Left Aerobic and Anaerobic Culture - Preliminary Staph aureus MRSA 07/28/24 07/28/24 07/27/24 07:42 05:19 20:37 WBC 10.33 RBC 2.89 L Hgb 8.7 L Hct 25.9 L MCV 89.6 MCH 30.1 MCHC 33.6 RDW Std Deviation 45.9 RDW Coeff of Swetha 14.0 Plt Count 326 MPV 9.1 L Sodium 133 L Potassium 4.1 Chloride 105 Carbon Dioxide 21 Anion Gap 7 BUN 24 H Creatinine 1.08 Est Cr Clr Drug Dosing 47.5 Est GFR ( Amer) 75.3 Est GFR (Non-Af Amer) 64.9 BUN/Creatinine Ratio 22.2 H Glucose 222 H POC Glucose 260 H 218 H Calcium 8.0 L Random Vancomycin 10.4 Crossmatch 07/27/24 07/27/24 07/27/24 18:54 16:38 11:56 WBC RBC Hgb 8.3 L Hct 25.2 L MCV MCH MCHC RDW Std Deviation RDW Coeff of Swetha Plt Count MPV Sodium Potassium Chloride Carbon Dioxide Anion Gap BUN Creatinine Est Cr Clr Drug Dosing Est GFR ( Amer) Est GFR (Non-Af Amer) BUN/Creatinine Ratio Glucose POC Glucose 241 H 217 H Calcium Random Vancomycin Crossmatch 07/25/24 15:04 WBC RBC Hgb Hct MCV MCH MCHC RDW Std Deviation RDW Coeff of Swetha Plt Count MPV Sodium Potassium Chloride Carbon Dioxide Anion Gap BUN Creatinine Est Cr Clr Drug Dosing Est GFR ( Amer) Est GFR (Non-Af Amer) BUN/Creatinine Ratio Glucose POC Glucose Calcium Random Vancomycin Crossmatch See Detail Diagnostic Findings Knee X-Ray 07/26/24 11:25 FL knee LT 1 or 2V CLINICAL HISTORY: LT KNEE REVISION/AMPUTATION COMPARISON STUDY: 07/25/2024 FLUOROSCOPY TIME: 2.9 seconds FLUOROSCOPY IMAGES: 1 EXPOSURE DOSE: 0.13 mGy FINDINGS: Status post below the knee dilatation with soft tissue swelling and arterial calcifications. Expected postoperative deep tissue air. IMPRESSION: Fluoroscopic assistance as above. ACT 112: Negative or not required by law. Electronically signed by: Juan Lou M.D. 07/26/2024 1:11 PM Medications Administered Home Medications Medication Instructions Recorded Confirmed Last Taken atorvastatin 40 mg tablet (Lipitor) 40 mg PO 1700 08/24/19 07/25/24 07/03/24 18:00 cholecalciferol (vitamin D3) 50 2,000 units PO 1200 #90 caps 08/24/19 07/25/24 07/03/24 12:00 mcg (2,000 unit) capsule coenzyme Q10 100 mg capsule 100 mg PO QPM 08/24/19 07/25/24 07/03/24 18:00 levothyroxine 50 mcg tablet 50 mcg PO QAM #90 tabs 08/24/19 07/25/24 07/04/24 07:30 xsdvayaj-ncxntgur-dnvea acid 400 1 tab PO DAILY 08/24/19 07/25/24 07/03/24 08:00 mcg-vit K 20 mcg-lycop 300 mcg tablet (One-A-Day Men's Multivitamin) glucagon (human recombinant) 1 mg 1 mg subcut Q20M PRN hypoglycemia 09/15/19 07/25/24 Unknown solution for injection (Glucagon #1 ea Emergency Kit) alendronate 35 mg tablet 35 mg PO WK 05/22/24 07/25/24 07/02/24 cetirizine 10 mg tablet (Allergy 10 mg PO QPM 05/22/24 07/25/24 07/03/24 18:00 Relief (cetirizine)) insulin glargine 100 unit/mL 14 unit subcut QAM 05/22/24 07/25/24 07/04/24 07:30 subcutaneous solution (Lantus U-100 Insulin) insulin lispro 100 unit/mL See Rx Instructions subcut .COMPLEX 05/22/24 07/25/24 07/03/24 18:00 subcutaneous pen (Humalog KwikPen (U-100) Insulin) timolol 0.25 % eye drops 1 drp ophthalmic (eye) BID 05/22/24 07/25/24 07/04/24 07:30 apixaban 5 mg tablet (Eliquis) 5 mg PO BID #60 tabs 06/06/24 07/25/24 06/30/24 brimonidine 0.1 % eye drops 1 drp ophthalmic (eye) BID 06/27/24 07/25/24 07/04/24 07:30 (Alphagan P) amlodipine 2.5 mg tablet 2.5 mg PO 1200 06/29/24 07/25/24 07/03/24 12:00 clopidogrel 75 mg tablet 75 mg PO QPM 06/29/24 07/25/24 06/30/24 metoprolol succinate 50 mg 50 mg PO DAILY 06/29/24 07/25/24 07/04/24 07:30 tablet,extended release 24 hr acetaminophen 500 mg tablet 1,000 mg (2 x 500 mg) PO Q8H PRN 07/07/24 07/25/24 Unknown (Tylenol Extra Strength) pain #30 tabs Active Medications Generic Name Dose Route Start Last Admin Trade Name Freq PRN Reason Stop Dose Admin Acetaminophen 1,000 mg 07/25/24 16:30 07/28/24 08:58 Acetaminophen 500 Mg Tab PO 08/24/24 16:29 1,000 mg Q8H LUIS MANUEL Administration Amlodipine Besylate 2.5 mg 07/26/24 12:00 07/28/24 08:59 Amlodipine Besylate 5 Mg Tab PO 08/25/24 11:59 2.5 mg 1200 LUIS MANUEL Administration Atorvastatin Calcium 40 mg 07/25/24 17:00 07/27/24 16:25 Atorvastatin 40 Mg Tab PO 08/24/24 16:59 40 mg 1700 LUIS MANUEL Administration Brimonidine Tartrate 1 drops 07/25/24 23:30 07/28/24 09:01 Brimonidine Tartrate-P 0.15% 5 Ml Btl OP 08/24/24 23:29 1 drops BID LUIS MANUEL Administration Cetirizine HCl 10 mg 07/25/24 21:00 07/27/24 20:45 Cetirizine Hcl 10 Mg Tablet PO 08/24/24 20:59 Not Given QPM LUIS MANUEL Clopidogrel Bisulfate 75 mg 07/27/24 21:00 07/27/24 20:37 Clopidogrel Bisulfate 75 Mg Tab PO 08/26/24 20:59 75 mg QPM LUIS MANUEL Administration Docusate Sodium 100 mg 07/26/24 21:00 07/28/24 09:07 Docusate Sodium 100 Mg Cap PO 08/25/24 20:59 100 mg BID LUIS MANUEL Administration Enoxaparin Sodium 40 mg 07/27/24 10:00 07/28/24 08:58 Enoxaparin Inj 40 Mg/0.4 Ml Syr SQ 08/26/24 09:59 40 mg QAM LUIS MANUEL Administration Sodium Chloride 1,000 mls @ 80 mls/hr 07/25/24 13:15 07/28/24 07:53 Nss IV 08/24/24 13:14 80 mls/hr .[id number] LUIS MANUEL Infusion Vancomycin HCl 1,250 mg/ 275 mls @ 200 mls/hr 07/26/24 06:00 07/28/24 07:53 Sodium Chloride IV 08/02/24 05:59 Infused Q24H LUIS MANUEL Infusion Sodium Chloride 1,000 mls @ 15 mls/hr 07/26/24 10:45 07/28/24 09:01 Nss IV 08/25/24 10:44 Not Given .Q24H LUIS MANUEL Insulin Aspart 0 units 07/26/24 16:30 07/28/24 09:08 Insulin Aspart Per Unit Charge SC 08/25/24 16:29 6 units ACHS LUIS MANUEL Administration Insulin Glargine 17 units 07/28/24 09:00 07/28/24 09:07 Lantus Per Unit Charge SC 08/27/24 08:59 17 units DAILY LUIS MANUEL Administration Levothyroxine Sodium 50 mcg 07/26/24 06:30 07/28/24 06:18 Levothyroxine Sodium 50 Mcg Tablet PO 08/25/24 06:29 50 mcg DAILYBB LUIS MANUEL Administration Magnesium Hydroxide 30 ml 07/25/24 13:07 07/28/24 09:07 Magnesium Hydroxide Susp 30 Ml Udc PO 08/24/24 13:06 30 ml Q6H PRN Administration Constipation Metoprolol Succinate 50 mg 07/25/24 21:00 07/28/24 09:00 Metoprolol Succ 50mg Ext Rel Tab PO 08/24/24 20:59 50 mg BID LUIS MANUEL Administration Multivitamins/Minerals 1 tab 07/26/24 09:00 07/28/24 08:59 Cerovite Adv Formula Tab PO 08/25/24 08:59 1 tab DAILY LUIS MANUEL Administration Oxycodone HCl 5 mg 07/25/24 16:24 07/25/24 21:21 Oxycodone Hcl Ir 5 Mg Tab (Immediate Release) PO 08/08/24 16:23 5 mg Q6H PRN Administration Mod-Sev Pain (Scale 4-10) Pantoprazole Sodium 40 mg 07/27/24 09:00 07/28/24 08:59 Pantoprazole 40 Mg Tab PO 08/26/24 08:59 40 mg QAM LUIS MANUEL Administration Sennosides 17.2 mg 07/26/24 21:00 07/27/24 20:36 Senna 8.6 Mg Tab PO 08/25/24 20:59 17.2 mg HS LUIS MANUEL Administration Timolol Maleate 1 drops 07/25/24 21:00 07/28/24 09:00 Timolol Maleate 0.25% Op Soln 5 Ml Btl OP 08/24/24 20:59 1 drops BID LUIS MANUEL Administration Vitamin D 50 mcg 07/26/24 12:00 07/27/24 11:53 Cholecalciferol 25 Mcg (1000 Units) Tab PO 08/25/24 11:59 50 mcg 1200 LUIS MANUEL Administration (1) Post-operative infection Encounter type: initial encounter Postoperative infection type: deep incisional surgical site Qualified Code(s): T81.42XA - Infection following a procedure, deep incisional surgical site, initial encounter
--- NOTE | 2024-07-28 11:09 | Hospitalist Progress Note ---
<Statement entered by David Jameson DO - 07/28/24 13:12> I have seen and examined the patient and have discussed the case with the provider above. I have reviewed the advanced practitioner's documentation, and I agree with, and take responsibility for that plan of care. 10 minutes spent in examination patient and coordination of care. Patient sitting up in bed. Reports no acute issues overnight. Understands plan for PICC line placement for prolonged IV antibiotics and anticipate discharge to rehab facility. Plan of care as outlined below Date of Service July 28, 2024 Assessment & Plan (1) S/P BKA (below knee amputation) unilateral: (2) Post-operative infection: (3) PAD (peripheral artery disease): (4) Type 1 diabetes mellitus with complications: (5) Dyslipidemia: (6) Hypertension: (7) Hypothyroidism: Plan This is a 79-year-old male with history of coronary disease/CABG, aortic valve stenosis, peripheral vascular disease, carotid stenosis, diabetes type 1, hypertension, CKD stage III, hypothyroidism, BPH and recent BKA complicated by post-op infection who presents as a direct admission for I&D with orthopedic service. S/p left BKA Post-op infection of stump History of L BKA by Dr. Dominguez on 07/04/24 Direct admission by ortho from clinic due to concern for infection the stump S/p Left Knee I&D, Irrigation and Debridement(Left), Revision Amputation Left Leg(Left) by Dr. Dominguez on 07/26/24 OR cultures growing staph MRSA Awaiting final recs from ID, picc line ordered by ortho for IV abx course For mobility, can be out of bed with assistance PT / OT consulted, CM coordinating dc to [facility]/o SIADH Seen by nephro for this during previous admission in mid-June Was started on Urea BID to continue through his stay at rehab but has since been discontinued Sodium improved, 133 today Monitor with daily BMP Anemia, post-op Hgb in 9-10 range, down to 7.3 post-operatively Given history of PAD, CKD, CAD, transfusion goal > 8.0 S/p 1u prbcs yesterday, hgb now 8.7 Daily CBC CAD/CABG Peripheral Arterial disease Carotid stenosis Hypertension Follows with Dr. Farr of vascular service Resumed plavix on 07/28, plan to resume Eliquis tomorrow if okay with ortho Continue Toprol, Lipitor, amlodipine Diabetes type 1 Usually on insulin lispro and Lantus Glycemic consult placed by primary service BSG ACHS CKD stage III Cr at baseline Monitor labs Hypothyroidism Continue levothyroxine 50 mcg daily DVT Ppx: Resumed plavix yesterday and started Lovenox 40mg SQ daily Code status: FULL PCP: Debora Dispo: Per primary service Care coordinated with Dr. Jameson. I spent a total of 35 minutes coordinating, documenting, and providing care for this patient excluding time spent in the performance of separately billed services. Thank you for this consultation. We will follow the patient with you during their hospital stay. You can reach a member of the [facility] Hospitalist Team 14/06 via pager @ [phone]. Admission and Anticipated Discharge Date Admission Date: July 25, 2024 Subjective Seen and examined in 353 bed 2. Feeling better today, less fatigued. Denies any pain at BKA site. No F/C, lightheadedness, chest pain, SOB, N/V, abd pain, dysuria. No bowel movement in 2 days but passing gas. Physical Exam Physical Exam: General Appearance: WD/WN, vitals as above, NAD, sitting up in bed, pleasant, conversing easily Head: normocephalic, atraumatic Eyes: normal inspection Neck: normal visual inspection Respiratory: normal respiratory effort, lungs clear to auscultation, no wheeze, rales, rhonchi. No accessory muscle use Cardiovascular: regular rate, rhythm, normal peripheral pulses Abdomen/GI: normal bowel sounds, soft, nontender, no hepatosplenomegaly Extremities/Musculoskeletal: + L BKA dressing c/d/i. No drainage. RLE with teds, no edema noted. No cyanosis or clubbing, extremities motor strength 5/5 Neurologic: PERRL, EOMI, accommodation nl, no face palsy, no dysarthria, CN's II-XI intact bilaterally and moves all extremities Psychiatric: A+Ox3 Skin: no rashes, warm/dry Results & Data Results & Data Vital Signs (Past 12 Hours) Vital Signs Temp Pulse Resp BP Pulse Ox O2 Del Method 07/28/24 08:13 36.4 C L 72 16 160/62 H 99 Room Air Laboratory Results Short CBC 07/27/24 07/28/24 Range/Units 18:54 05:19 WBC 10.33 (4.8-10.8) K/ul Hgb 8.3 L 8.7 L (14.0-18.0) g/dl Hct 25.2 L 25.9 L (42.0-52.0) % Plt Count 326 (130-400) K/uL BMP 07/28/24 05:19 Sodium 133 L Potassium 4.1 Chloride 105 Carbon Dioxide 21 BUN 24 H Creatinine 1.08 Glucose 222 H Calcium 8.0 L Diagnostic Findings Knee X-Ray 07/26/24 11:25 FL knee LT 1 or 2V CLINICAL HISTORY: LT KNEE REVISION/AMPUTATION COMPARISON STUDY: 07/25/2024 FLUOROSCOPY TIME: 2.9 seconds FLUOROSCOPY IMAGES: 1 EXPOSURE DOSE: 0.13 mGy FINDINGS: Status post below the knee dilatation with soft tissue swelling and arterial calcifications. Expected postoperative deep tissue air. IMPRESSION: Fluoroscopic assistance as above. ACT 112: Negative or not required by law. Electronically signed by: Juan Lou M.D. 07/26/2024 1:11 PM (2) Post-operative infection Encounter type: initial encounter Postoperative infection type: deep incisional surgical site Qualified Code(s): T81.42XA - Infection following a procedure, deep incisional surgical site, initial encounter
--- NOTE | 2024-07-28 11:14 | Orthopedic Progress Note ---
Date of Service July 28, 2024 Assessment & Plan (1) Post-operative infection: Plan: Postop day 2-status post irrigation, debridement and revision amputation left lower extremity with Dr. Dominguez. PICC line consent obtained and in chart May be out of bed, nonweightbearing left lower extremity. Elevate left leg above heart to relieve pain and swelling. Ice to left leg as needed for pain. Patient seen by infectious disease Yesterday. Will plan to change dressings of the left lower extremity later today Continue IV antibiotics as ordered. Continue regular diet. Patient is in agreement with plan thus far. Appreciate medicine input and assistance. Case management for disposition needs. Patient would like to go back to [facility]. (2) Hemorrhage from wound: Plan: Waffle boots in place. Keep heel off of bed at all times. Wound care as per the wound care nurse. Will continue to follow. Admission and Anticipated Discharge Date Admission Date: July 25, 2024 Subjective This 79-year-old male is day 2 status post irrigation, debridement and revision amputation left lower extremity with Dr. Dominguez. Patient is in good spirits currently sitting up in bed eating his breakfast. He states that he has no pain in the stump of the left lower extremity. Patient was advised that he will most likely need a PICC line and IV antibiotics for 6 weeks. I did have him sign the consent form for the PICC line after going over thoroughly. Currently the patie nt denies chest pain, shortness of breath, fever, chills, sweats, lethargy, numbness or tingling in any extremities. He also denies nausea, vomiting, diarrhea or difficulty voiding. Review of Systems Review of Systems: All systems reviewed & are unremarkable except as noted in Subjective Physical Exam Physical Exam: Left BKA stump: Dressing was clean dry and intact and left in place. Patient is able to flex at the knee. He is able to lift the leg actively off of the bed. He has no tenderness to palpation over the quadricep. He does have some sensitivity with light touch over the distal aspect of the stump. Results & Data Vital Signs (Past 12 Hours) Vital Signs Temp Pulse Resp BP Pulse Ox O2 Del Method 07/28/24 08:13 36.4 C L 72 16 160/62 H 99 Room Air Diagnostic Findings Laboratory Results WBC 10.33 K/ul (4.8-10.8) 07/28/24 05:19 RBC 2.89 M/uL (4.70-6.10) L 07/28/24 05:19 Hgb 8.7 g/dl (14.0-18.0) L 07/28/24 05:19 Hct 25.9 % (42.0-52.0) L 07/28/24 05:19 MCV 89.6 fL (80.0-100.0) 07/28/24 05:19 MCH 30.1 pg (25.0-34.0) 07/28/24 05:19 MCHC 33.6 g/dL (32.0-36.0) 07/28/24 05:19 RDW Std Deviation 45.9 fL (36.4-46.3) 07/28/24 05:19 RDW Coeff of Swetha 14.0 % (11.5-14.5) 07/28/24 05:19 Plt Count 326 K/uL (130-400) 07/28/24 05:19 MPV 9.1 fL (9.4-12.4) L 07/28/24 05:19 Immature Gran % (Auto) 0.6 % 07/25/24 15:04 Neut % (Auto) 77.6 % 07/25/24 15:04 Lymph % (Auto) 11.1 % 07/25/24 15:04 [place] % (Auto) 8.8 % 07/25/24 15:04 Eos % (Auto) 1.6 % 07/25/24 15:04 Baso % (Auto) 0.3 % 07/25/24 15:04 Neut # (Auto) 11.91 K/uL (1.40-6.50) H 07/25/24 15:04 Lymph # (Auto) 1.71 K/uL (1.20-3.40) 07/25/24 15:04 [place] # (Auto) 1.35 K/uL (0.11-0.59) H 07/25/24 15:04 Eos # (Auto) 0.25 K/uL (0.00-0.50) 07/25/24 15:04 Baso # (Auto) 0.04 K/uL (0.00-0.20) 07/25/24 15:04 Immature Gran # (Auto) 0.09 K/uL (0.01-0.20) 07/25/24 15:04 Absolute Nucleated RBC 0.03 K/uL (0.00-0.12) 07/26/24 07:20 Nucleated RBC % (auto) 0.2 % 07/26/24 07:20 ESR 80 mm/hr (0-20) H 07/25/24 15:04 Sodium 133 mmol/L (136-145) L 07/28/24 05:19 Potassium 4.1 mmol/L (3.5-5.1) 07/28/24 05:19 Chloride 105 mmol/L (98-107) 07/28/24 05:19 Carbon Dioxide 21 mmol/L (21-32) 07/28/24 05:19 Anion Gap 7 (3-11) 07/28/24 05:19 BUN 24 mg/dl (6-23) H 07/28/24 05:19 Creatinine 1.08 mg/dl (0.6-1.4) 07/28/24 05:19 Est Cr Clr Drug Dosing 47.5 ml/min 07/28/24 05:19 Est GFR ( Amer) 75.3 ml/min 07/28/24 05:19 Est GFR (Non-Af Amer) 64.9 ml/min 07/28/24 05:19 BUN/Creatinine Ratio 22.2 (10-20) H 07/28/24 05:19 Glucose 222 mg/dl (70-99(Fasting)) H 07/28/24 05:19 POC Glucose 260 mg/dl (70-99) H 07/28/24 07:42 Calcium 8.0 mg/dl (8.6-10.3) L 07/28/24 05:19 Total Bilirubin 0.4 mg/dl (0.2-1.0) 07/25/24 15:04 AST 16 U/L (13-39) 07/25/24 15:04 ALT 17 U/L (7-52) 07/25/24 15:04 Alkaline Phosphatase 62 U/L (34-104) 07/25/24 15:04 C-Reactive Protein 9.69 mg/dl (0-0.5) H 07/25/24 15:04 Total Protein 6.8 gm/dl (6.0-8.3) 07/25/24 15:04 Albumin 3.7 gm/dl (3.4-5.0) 07/25/24 15:04 Globulin 3.1 gm/dl (2.5-4.0) 07/25/24 15:04 Albumin/Globulin Ratio 1.2 (0.9-2) 07/25/24 15:04 Random Vancomycin 10.4 mcg/ml (10-20) 07/28/24 05:19 Blood Type O Negative 07/25/24 15:04 Antibody Screen NEGATIVE 07/25/24 15:04 Crossmatch See Detail 07/25/24 15:04 Impressions Knee X-Ray 07/26/24 11:25 FL knee LT 1 or 2V CLINICAL HISTORY: LT KNEE REVISION/AMPUTATION COMPARISON STUDY: 07/25/2024 FLUOROSCOPY TIME: 2.9 seconds FLUOROSCOPY IMAGES: 1 EXPOSURE DOSE: 0.13 mGy FINDINGS: Status post below the knee dilatation with soft tissue swelling and arterial calcifications. Expected postoperative deep tissue air. IMPRESSION: Fluoroscopic assistance as above. ACT 112: Negative or not required by law. Electronically signed by: Juan Lou M.D. 07/26/2024 1:11 PM (1) Post-operative infection Encounter type: initial encounter Postoperative infection type: deep incisional surgical site Qualified Code(s): T81.42XA - Infection following a procedure, deep incisional surgical site, initial encounter
[2024-07-28] MEDS: POLYETHYLENE (MIRALAX) 17 GM PACK PO SCH (12:05)
[2024-07-28 12:24] VITALS: TEMP 98.6; O2SAT 100
[2024-07-28] MEDS: DAPTOmycin 500 MG in SYRINGE 0 ML IV SCH (14:34)
--- NOTE | 2024-07-28 14:41 | Discharge Summary ---
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 The patient had surgery 3 weeks ago. He was initially doing well in his recovery. Over the weekend, he fell while doing a transfer from bed to chair. He landed on his right knee and left stump. He was initially seen at the ED and some swelling and bruising was noted. He presented to the office today for reevaluation. He denies any fevers or chills. He denies any redness, streaking, or increasing pain. Upon removal of the dressings, there was concern for significant infection in his stump. It is draining at this time. Cultures were obtained. Recommendation for admission and irrigation and debridement with possible revision of his amputation was discussed. He is in agreement. Direct admission will be performed at this time. The patient states he did take his morning dose of Eliquis and Plavix. Discharge Data Consultations 07/25/24 13:18 Consult Internal Medicine Routine 07/27/24 07:35 Consult Infectious Diseases Routine Procedures Performed Operation Date: 07/26/24 11:00 Actual Procedures p Left Knee Incision Drainage, Irrigation and Debridement(Left) - Marquis Dominguez MD s Revision Amputation Left Leg(Left) - Marquis Dominguez MD Hospital Course (1) Post-operative infection: Patient was seen and evaluated in our office by Dr. Dominguez. He was found to have an infected left BKA stump. He was directly admitted to [facility] from our office. He was made n.p.o. after midnight. Hospitalist consult was planned for inpatient medical management. A glycemic control consult was also placed for management of his diabetes while inpatient. Plans for irrigation, debridement and revision amputation left lower extremity was Angelica were made. He underwent this procedure on July 26, 2024. His surgery was performed with general anesthesia and he tolerated the procedure well. He was placed on ceftriaxone and IV vancomycin pre and postoperatively. Intraoperative cultures were obtained and grew out MRSA. He was placed on IV vancomycin independently and the ceftriaxone was discontinued. An infectious d isease consult was placed. Was recommended for continuing the IV vancomycin until susceptibilities were obtained. On postoperative day 2 susceptibilities were obtained and cultures are more definitive for MRSA. He was changed from IV vancomycin to IV daptomycin 500 mg IV every 8 hours. PICC line was recommended for 4 to 6 weeks. This was discussed with Dr. Dominguez. While he was in inpatient his regular diet was continued. He did develop acute blood loss anemia in which 1 unit of packed red blood cells was given on postoperative day 1. He was allowed out of bed, nonweightbearing left lower extremity transfers from bed to chair only. A Colindres catheter was placed on the day of admission which was discontinued on 07/28/2024. His vital signs remained stable during his inpatient stay. His lab work, CBC, BMP, ESR and CRP improved during this inpatient stay. He did not he remained afebrile. A wound care consult was also placed for evaluation of a right heel blister/wound. This developed during his most recent stay at [facility]. Waffle boots were ordered and pressure was kept off of his right heel. This was cleansed with some Betadine swabs no debridement was performed of the right heel. Dressing change was performed on postoperative day 2 which showed an intact incision with mild bloody drainage. No purulence. No need for further surgical intervention. PIC line consent was obtained on 07/28/2024. A PICC was placed into his left arm on 07/28/2024. He received his first IV daptomycin dose through his PICC line on 07/28/2024. He was safe from a medical standpoint for discharge to [facility]. Case management was involved for disposition needs. He was discharged to [facility] on 07/28/2024 in stable condition.
[2024-07-28 15:49] VITALS: BP 126/67; PULSE 64
[2024-07-29] MEDS ORDERED: APIXABAN 5 MG TABLET PO SCH (09:00)
== END 2024-07-28 17:43 | DRG 475 ==
LOC: 3W 14:48

== ENCOUNTER 2024-08-18 11:22 | Inpatient (IN) ==
--- NOTE | 2024-08-17 13:37 | Anesthesiology Consultation ---
Date of Service August 17, 2024 Assessment & Plan (1) Encounter for pre-operative examination: Chart Review Chart Review: Acceptable Risk for Surgery and Patient NOT seen in Pre Admission Testing -Pt saw Vascular 08/11/24: "Patient here today due to right second toe ulcer and new right heel pressure ulcer. On exam has palpable DP pulse and normal capillary refill. Right heel ulcer bed appears healthy without signs of infection. Underwent repeat right lower extremity arterial duplex today. Right EIA through popliteal arteries widely patent with multiphasic waveforms. ALETHA/WINDSCREEN FITTER calcified but patent to the foot with multiphasic waveforms. Toe pressure 55. Based on exam, duplex/toe pressure feel arterial perfusion should be adequate to heal current right foot wounds. No need for additional invasive testing/revascularization at this time. Plans to follow-up with wound clinic next week. If wounds deteriorate in the future would have low threshold to confirm arterial anatomy with angiogram. Can discontinue Eliquis and clopidogrel. Replace with aspirin 81 mg daily. Continue amlodipine as needed for blood pressure. Follow-up with vascular medicine as needed. -Pt seen (and 'cleared') by PCP and Cardiology prior to L BKA 07/04/24 Infectious Disease screening: Per PAT nursing assessment on 08/17/24, No known infectious disease contacts in past 10 days or current infectious disease symptoms. No recent travel outside the country. History Surgery Operation Date: 08/18/24 13:00 Proposed Procedures p Right Second Toe Amputation - Marquis Dominguez MD Height/Weight Height: 5 ft 6 in Weight: 61.235 kg Allergies Allergy/AdvReac Type Severity Reaction Status Date / Time tramadol Allergy Severe horrible Verified 08/17/24 12:55 experience>muscle stiffness, low bs amoxicillin [From Augmentin] AdvReac Severe Vomiting Verified 08/17/24 12:55 clavulanic acid AdvReac Severe Vomiting Verified 08/17/24 12:55 [From Augmentin] codeine AdvReac Severe Vomiting Verified 08/17/24 12:55 sulfamethoxazole AdvReac Severe Vomiting Verified 08/17/24 12:55 [From Bactrim] trimethoprim [From Bactrim] AdvReac Severe Vomiting Verified 08/17/24 12:55 Medications Home Medications Medication Instructions Recorded Confirmed Last Taken atorvastatin 40 mg tablet (Lipitor) 40 mg PO 1700 08/24/19 08/17/24 07/03/24 18:00 cholecalciferol (vitamin D3) 50 2,000 units PO 1200 #90 caps 08/24/19 08/17/24 07/03/24 12:00 mcg (2,000 unit) capsule coenzyme Q10 100 mg capsule 100 mg PO QPM 08/24/19 08/17/24 07/03/24 18:00 levothyroxine 50 mcg tablet 50 mcg PO QAM #90 tabs 08/24/19 08/17/24 07/04/24 07:30 uomsowom-wxrolwmw-uzjvz acid 400 1 tab PO DAILY 08/24/19 08/17/24 07/03/24 08:00 mcg-vit K 20 mcg-lycop 300 mcg tablet (One-A-Day Men's Multivitamin) glucagon (human recombinant) 1 mg 1 mg subcut Q20M PRN hypoglycemia 09/15/19 08/17/24 Unknown solution for injection (Glucagon #1 ea Emergency Kit) alendronate 35 mg tablet 35 mg PO WK 05/22/24 08/17/24 07/02/24 cetirizine 10 mg tablet (Allergy 10 mg PO QPM 05/22/24 08/17/24 07/03/24 18:00 Relief (cetirizine)) insulin glargine 100 unit/mL 18 unit subcut QAM 05/22/24 08/17/24 07/04/24 07:30 subcutaneous solution (Lantus U-100 Insulin) insulin lispro 100 unit/mL See Rx Instructions subcut .COMPLEX 05/22/24 08/17/24 07/03/24 18:00 subcutaneous pen (Humalog KwikPen (U-100) Insulin) timolol 0.25 % eye drops 1 drp ophthalmic (eye) BID 05/22/24 08/17/24 07/04/24 07:30 apixaban 5 mg tablet (Eliquis) 5 mg PO BID #60 tabs 06/06/24 07/25/24 06/30/24 brimonidine 0.1 % eye drops 1 drp ophthalmic (eye) BID 06/27/24 08/17/24 07/04/24 07:30 (Alphagan P) amlodipine 2.5 mg tablet 2.5 mg PO 1200 06/29/24 08/17/24 07/03/24 12:00 clopidogrel 75 mg tablet 75 mg PO QPM 06/29/24 07/25/24 06/30/24 metoprolol succinate 50 mg 50 mg PO QAM 06/29/24 08/17/24 07/04/24 07:30 tablet,extended release 24 hr acetaminophen 500 mg tablet 1,000 mg (2 x 500 mg) PO Q8H PRN 07/07/24 08/17/24 Unknown (Tylenol Extra Strength) pain #30 tabs docusate sodium 100 mg capsule 100 mg PO BID PRN Constipation 08/11/24 08/17/24 Unknown daptomycin 500 mg intravenous 500 mg IV DAILY 08/17/24 08/17/24 Unknown solution Past Medical History Medical History (Updated 08/17/24 @ 14:36 by Sakina Terrell PA-C) Amputation of toe of right foot partial big toe amputation Anemia pt given 1 unit PRBCs during 07/25-07/28/24 hospital admission CAD (coronary artery disease) Carotid artery stenosis asymptomatic; <50% B/L Chronic kidney disease stage 3 Diabetic foot ulcers current: necrosis R 2nd toe and R heel would; following with wound care. Glaucoma Ashlie thyroiditis History of flexible sigmoidoscopy Hyperlipidemia Hypertension Hypothyroidism Mitral regurgitation mild-mod per 03/2024 ECHO Osteopenia Proliferative diabetic retinopathy PVD (peripheral vascular disease) S/P angiogram of extremity multiple; most recent: 06/05/24 B/L LE; thrombus noted at bifurcation of WINDSCREEN FITTER/peroneal; Discharged on DOAC (DOAC D/C at 08/11/24 vascular visit; pt to replace with CGH23cg daily) SIADH (syndrome of inappropriate ADH production) pt had hyponatremia during 06/2024 hospital stay and nephro consulted; per note, 'likely due to to SIADH'; pt started on urea 15g daily but pt did not continue taking at hospital D/C Type 1 diabetes Past Family History Family History Father Gout Other No family history of adverse response to anesthesia Past Surgical History Surgical History (Updated 08/17/24 @ 14:33 by Sakina Terrell PA-C) History of amputation (07/26/24) I&D, left bka revision: LMA#4 iGel; pt remains on IV abx and following with wound care History of cardiac cath (09/2003) at [facility]. no stents History of cataract surgery bilateral History of colonoscopy Hx of CABG (10/11/03) CABG x 4 2002 [facility] Hx of left BKA 07/04/24 S/P eye surgery retinopexy bilateral laser surgery S/P PICC central line placement Social History Smoking Status: Never smoker Do You Dip or Chew Tobacco: No Hx Alcohol Use: No alcohol intake frequency: holidays/special occasions only Hx Substance Use: No substance use type: does not use Lab Results Anesthesia Preop Results Results Anesthesia Widget: WBC 10.33 K/ul (4.8-10.8) 07/28/24 Hgb 8.7 g/dl (14.0-18.0) L 07/28/24 Hct 25.9 % (42.0-52.0) L 07/28/24 Plt 326 K/uL (130-400) 07/28/24 Na 133 mmol/L (136-145) L 07/28/24 K 4.1 mmol/L (3.5-5.1) 07/28/24 Cl 105 mmol/L (98-107) 07/28/24 CO2 21 mmol/L (21-32) 07/28/24 BUN 24 mg/dl (6-23) H 07/28/24 Creat 1.08 mg/dl (0.6-1.4) 07/28/24 Glucose Level 222 mg/dl (70-99(Fasting)) H 07/28/24 POC Glucose 298 mg/dl (70-99) H 07/28/24 TSH 3.417 uIu/ml (0.300-4.500) 07/06/24 HA1c 7.7 % (4.5-5.6) H 06/30/24 Urine Color Yellow 07/06/24 Urine Appearance Clear (Clear) 07/06/24 Urine pH 6.0 (4.5-7.5) 07/06/24 Urine Specific Marshall 1.013 (1.000-1.030) 07/06/24 Urine Protein Trace (Negative) H 07/06/24 Urine Glucose (UA) Negative (Negative) 07/06/24 Urine Ketones Negative (Negative) 07/06/24 Urine Blood Negative (Negative) 07/06/24 Urine Nitrite Negative (Negative) 07/06/24 Urine Bilirubin Negative (Negative) 07/06/24 Urine Urobilinogen Negative (Negative) 07/06/24 Urine Leukocyte Esterase Negative (Negative) 07/06/24 Urine WBC (Auto) 0-5 /hpf (0-5) 07/06/24 Urine RBC (Auto) 0-2 /hpf (0-2) 07/06/24 Urine Hyaline Casts (Auto) 0-2 /lpf (0-2) 07/06/24 Urine Epithelial Cells (Auto) 0-2 /hpf (0-2) 07/06/24 Urine Bacteria (Auto) None Seen (None Seen) 07/06/24 Coronavirus OC43 (PCR) Not Detected (NotDetected) 07/06/24 Coronavirus HKU1 (PCR) Not Detected (NotDetected) 07/06/24 Coronavirus 229E (PCR) Not Detected (NotDetected) 07/06/24 COVID-19 PCR Not Detected (NotDetected) 07/06/24 Coronavirus NL63 (PCR) Not Detected (NotDetected) 07/06/24 Blood Type O Negative 07/25/24 Antibody Screen NEGATIVE 07/25/24 Testing Electrocardiogram Date: 07/03/24 Findings: + NSR @ (76bpm) RBBB Echocardiogram Date: 04/05/24 EF: 55-60% LV Function: normal RWMA: + none Thickened mitral valve with mild-mod MR. Mild TR. (Diastolic function could not be assessed due to mitral annular calcification) Other Testing Lower Extremity Arterial Duplex Evaluation 08/11/24: 1 Patent RLE arterial system from distal external iliac through popliteal artery with multiphasic waveforms. 2. Patent RT ALETHA, WINDSCREEN FITTER and proximal Peroneal arteries 3. RT second digit borderline adequate for healing (55mmHg) 4. No prior study for comparison Carotid Doppler 05/03/24: The Right CCA appears normal. The Right ECA orifice appears normal. There is heterogeneous plaque visualized in the proximal R ICA. The R ICA peak systolic flow velocity is 69cm/s, end diastolic velocity of 14cm/s. Doppler criteria suggest <50% stenosis range. The Right vertebral artery flow is antegrade with decreased flow. The Left CCA appears normal. The Left ECA orifice appears normal. There is mild heterogeneous plaque visualized in the proximal Left ICA. The L ICA peak systolic flow velocity is 106cm/s, end diastolic velocity of 22cm/s. Doppler criteria suggest <50% stenosis range. The Left vertebral artery flow is antegrade. B/L LE Angio 06/05/14: Summary: 1. Left lower extremity --40% distal popliteal (no pullback gradient), 100% distal ALETHA occlusion at level of the ankle. Peroneal tapers prior to ankle and gives collaterals to pedal vessels. Distal WINDSCREEN FITTER into the foot with diffuse disease. Small diffusely diseased pedal vessels with limited flow to the toes. 2. Angioplasty of distal ALETHA into the foot with limited pedal outflow 3. Angioplasty of acute thrombotic occlusion of mid peroneal artery with 2.0 balloon Recommendations: With likely distal thrombus impacting flow through small diffusely diseased pedal vessels will admit for IV heparin administration overnight. Plan for discharge on DOAC No other real options for further revascularization. Follow-up noninvasive testing in 1 to 2 week
[2024-08-18] MEDS ORDERED: ePHEDrine sulfate 50 MG/ML AMP IV PRN (12:20)
[2024-08-18] MEDS ORDERED: ONDANSETRON INJ 2 MG/ML 2 ML VIAL IV PRN ×2 (12:20→15:56)
[2024-08-18] MEDS ORDERED: PROMETHAZINE HCL 6.25 MG in SODIUM CHLORIDE 0.9% 50 ML IV PRN (12:20)
[2024-08-18] MEDS ORDERED: FLUMAZENIL 0.1 MG/1 ML 10 ML VIAL IV PRN (12:20)
[2024-08-18] MEDS ORDERED: fentaNYL citrate PF 100 MCG/2 ML VIAL IV PRN (12:20)
[2024-08-18] MEDS ORDERED: NALOXONE HCL 0.4 MG/1 ML VIAL/CARP IV PRN ×2 (12:20→15:56)
[2024-08-18] MEDS ORDERED: LABETALOL HCL IV 5 MG/ML 20ML IV PRN (12:20)
[2024-08-18] MEDS ORDERED: ATROPINE SULFATE 0.1 MG/ML 10ML SYR IV PRN (12:20)
[2024-08-18 12:22] LABS: Basophils # (auto) 0.05 K/uL (0.00-0.20); Basophils % (auto) 0.4 %; Eosinophils # (auto) 1.11 K/uL (0.00-0.50); Eosinophils % (auto) 9.4 %; Hematocrit (blood only) 27.6 % (42.0-52.0); Hemoglobin 9.2 g/dl (14.0-18.0); Immature Granulocytes # (auto) 0.06 K/uL (0.01-0.20); Immature Granulocytes % (auto) 0.5 %; Lymphocytes # (auto) 1.37 K/uL (1.20-3.40); Lymphocytes % (auto) 11.6 %; Mean Corpuscular Hemoglobin 29.8 pg (25.0-34.0); Mean Corpuscular Hgb Conc 33.3 g/dL (32.0-36.0); Mean Corpuscular Volume 89.3 fL (80.0-100.0); Mean Platelet Volume 8.8 fL (9.4-12.4); Monocytes # (auto) 1.38 K/uL (0.11-0.59); Monocytes % (auto) 11.7 %; Neutrophils # (auto) 7.83 K/uL (1.40-6.50); Neutrophils % (auto) 66.4 %; Platelet Count 429 K/uL (130-400); RDW Coefficient of Variation 14.3 % (11.5-14.5); RDW Standard Deviation 46.7 fL (36.4-46.3); Red Blood Count 3.09 M/uL (4.70-6.10)
[2024-08-18] MEDS: LR 15ML/HR IV SCH (12:22)
[2024-08-18] MEDS: LACTATED RINGER'S 1,000 ML IV SCH (12:22)
[2024-08-18 12:36] LABS: Calcium 8.8 mg/dl (8.6-10.3); Creatinine Clr Calc Pharmacy 51.9 ml/min; Est GFR (African American) 82.6 ml/min; Est GFR (Non-African American) 71.3 ml/min; Potassium 3.9 mmol/L (3.5-5.1)
[2024-08-18] MEDS ORDERED: fentaNYL citrate PF 100 MCG/2 ML VIAL ONE (12:53)
[2024-08-18] MEDS ORDERED: MIDAZOLAM HCL 1 MG/ML 2ML VIAL ONE (12:53)
--- NOTE | 2024-08-18 13:23 | History & Physical Bridge Note ---
Date of Service August 18, 2024 History & Physical Bridge Note I have examined the patient, reviewed the History & Physical and in the interval since the performance of the History & Physical I have noted the following changes of clinical significance: no changes noted
--- NOTE | 2024-08-18 13:34 | History & Physical Report ---
Date of Service August 18, 2024 Assessment & Plan (1) Diabetic foot ulcer: Plan: The risks and benefits of surgery as well as the post operative course was explained and discussed with the patient. Written consent obtained. The patient's past medical history, surgeries, social history, medication list, allergies and PDMP were reviewed and confirmed with the patient. Preoperative orders were placed. We discussed postoperative pain management and patient says for his last surgery he only did Tylenol not so he would like to do this time as well. He did not want any narcotic pain medication. Patient was scheduled with postoperative appointments. The patient was given a preoperative booklet and we reviewed the most pertinent things leading up to the surgery and the day of surgery; including any assisted devices pt may need, when/who to call for the surgery time, where to arrive the day of surgery, NPO after midnight, medications to hold, prepping the skin with CHG to prevent infection etc. All of their questions and concerns were answered today. They were instructed to call our office if they have any further questions or concerns. History of Present Illness Primary Care Provider: Louisa Quiroga DO Tre Gonzalez is a 79 year old Male who presents today for pre-op H&P for . He is s/p RBKA with Dr Dominguez. He was seen by [facility] yesterday Dr. Dumont, infectious disease, who recommend 3 more weeks of IV antibiotics. He has not had any drainage or other complications. He is scheduled with the wound clinic on 08/18. Otherwise he is doing well but notes this has been a difficult process. He had a circulation testing done on the right leg and results did not indicate any necessary intervention. He discontinued Plavix and Eliquis but is taking baby Aspirin at this point per Dr. Farr. He has been dealing with 2nd toe wound for a while now with no improvement. He was seen by Dr Dominguez who recommended toe amputation. Allergies Allergy/AdvReac Type Severity Reaction Status Date / Time tramadol Allergy Severe horrible Verified 08/18/24 11:50 experience>muscle stiffness, low bs amoxicillin [From Augmentin] AdvReac Severe Vomiting Verified 08/18/24 11:50 clavulanic acid AdvReac Severe Vomiting Verified 08/18/24 11:50 [From Augmentin] codeine AdvReac Severe Vomiting Verified 08/18/24 11:50 sulfamethoxazole AdvReac Severe Vomiting Verified 08/18/24 11:50 [From Bactrim] trimethoprim [From Bactrim] AdvReac Severe Vomiting Verified 08/18/24 11:50 Home Medications Medication Instructions Recorded Confirmed Type atorvastatin 40 mg tablet (Lipitor) 40 mg PO 1700 08/24/19 08/18/24 History cholecalciferol (vitamin D3) 50 2,000 units PO 1200 #90 caps 08/24/19 08/18/24 History mcg (2,000 unit) capsule coenzyme Q10 100 mg capsule 100 mg PO QPM 08/24/19 08/18/24 History levothyroxine 50 mcg tablet 50 mcg PO QAM #90 tabs 08/24/19 08/18/24 History ixeuuudu-shbdlqvj-ywrlq acid 400 1 tab PO DAILY 08/24/19 08/18/24 History mcg-vit K 20 mcg-lycop 300 mcg tablet (One-A-Day Men's Multivitamin) glucagon (human recombinant) 1 mg 1 mg subcut Q20M PRN hypoglycemia 09/15/19 08/18/24 Rx solution for injection (Glucagon #1 ea Emergency Kit) alendronate 35 mg tablet 35 mg PO WK 05/22/24 08/18/24 History cetirizine 10 mg tablet (Allergy 10 mg PO QPM 05/22/24 08/18/24 History Relief (cetirizine)) insulin glargine 100 unit/mL 18 unit subcut QAM 05/22/24 08/18/24 History subcutaneous solution (Lantus U-100 Insulin) insulin lispro 100 unit/mL See Rx Instructions subcut .COMPLEX 05/22/24 08/18/24 History subcutaneous pen (Humalog KwikPen (U-100) Insulin) timolol 0.25 % eye drops 1 drp ophthalmic (eye) BID 05/22/24 08/18/24 History apixaban 5 mg tablet (Eliquis) 5 mg PO BID #60 tabs 06/06/24 08/18/24 Rx brimonidine 0.1 % eye drops 1 drp ophthalmic (eye) BID 06/27/24 08/18/24 History (Alphagan P) amlodipine 2.5 mg tablet 2.5 mg PO 1200 06/29/24 08/18/24 History clopidogrel 75 mg tablet 75 mg PO QPM 06/29/24 08/18/24 History metoprolol succinate 50 mg 50 mg PO QAM 06/29/24 08/18/24 History tablet,extended release 24 hr acetaminophen 500 mg tablet 1,000 mg (2 x 500 mg) PO Q8H PRN 07/07/24 08/18/24 Rx (Tylenol Extra Strength) pain #30 tabs docusate sodium 100 mg capsule 100 mg PO BID PRN Constipation 08/11/24 08/18/24 History daptomycin 500 mg intravenous 500 mg IV DAILY 08/17/24 08/18/24 History solution Past Med/Surg History Problem List Encounter for pre-operative examination Post-operative infection S/P BKA (below knee amputation) unilateral Diabetic foot ulcer PAD (peripheral artery disease) Hyponatremia (Chronic) 12/17/19 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 callous (Chronic) Personal history of diabetic foot ulcer (Chronic) Status post partial amputation of foot (Chronic) Loss of protective sensation of skin of foot (Chronic) Diabetic peripheral neuropathy associated with type 1 diabetes mellitus (Chronic) Proliferative diabetic retinopathy associated with type 1 diabetes mellitus (Chronic) CAD (coronary atherosclerotic disease) (Chronic) Diabetes type 1, controlled (Chronic) Dyslipidemia (Chronic) Ashlie's thyroiditis (Chronic) Hyperkalemia (Chronic) 12/16/19 Hypertension (Chronic) Hypothyroidism (Chronic) PVD (peripheral vascular disease) (Chronic) Vitamin D deficiency (Chronic) Medical History MRSA (methicillin resistant Staphylococcus aureus) Neuropathy Anemia pt given 1 unit PRBCs during 07/25-07/28/24 hospital admission Mitral regurgitation mild-mod per 03/2024 ECHO Diabetic foot ulcers current: necrosis R 2nd toe and R heel would; following with wound care. Carotid artery stenosis asymptomatic; <50% B/L SIADH (syndrome of inappropriate ADH production) pt had hyponatremia during 06/2024 hospital stay and nephro consulted; per note, 'likely due to to SIADH'; pt started on urea 15g daily but pt did not continue taking at hospital D/C History of flexible sigmoidoscopy Glaucoma S/P angiogram of extremity multiple; most recent: 06/05/24 B/L LE; thrombus noted at bifurcation of RAILWAY ENGINEER/peroneal; Discharged on DOAC (DOAC D/C at 08/11/24 vascular visit; pt to replace with [id number] daily) Chronic kidney disease stage 3 Proliferative diabetic retinopathy Osteopenia CAD (coronary artery disease) Amputation of toe of right foot partial big toe amputation Ashlie thyroiditis PVD (peripheral vascular disease) Type 1 diabetes Hyperlipidemia Hypertension Hypothyroidism Surgical History Hx of left BKA 07/04/24 S/P PICC central line placement History of amputation (07/26/24) I&D, left bka revision: LMA#4 iGel; pt remains on IV abx and following with wound care History of colonoscopy S/P eye surgery retinopexy bilateral laser surgery History of cataract surgery bilateral History of cardiac cath (09/2003) at [facility]. no stents Hx of CABG (10/11/03) CABG x 4 2002 [facility] Family History Father Gout Other No family history of adverse response to anesthesia Social History Smoking Status: Never smoker Second Hand Exposure: No; Do You Dip or Chew Tobacco: No; Hx Alcohol Use: No Hx Substance Use: No Preferred Language: Pakistani Communication Ability: Effective Radio Disc Jockey Required: No Beliefs That Will Affect Care: None Current Living Situation: Spouse Feels Safe at Home: Yes Safety Concerns: Feels Safe At This Time Assistive Devices: Glasses and Wheelchair Review of Systems Review of Systems: Denies Recent illnesses, colds/flu, pneumonia, COVID or COVID exposures; Denies Fevers, chills, malaise; Denies Chest pain, heart palpitations; Denies Shortness of breath, cough; Denies Headache or blurry vision; Denies Abdominal pain, nausea, vomiting, diarrhea, or urinary symptoms Physical Exam Physical Exam: General: Pt is well nourished, seated on the exam table AA&O, in NAD, calm and cooperative during exam HENT: Nontraumatic, no gross deformity, hearing and vision grossly in-tact, PERRL Heart: +S1, +S2, RRR, no murmurs appreciated Lungs: CTABL, no wheezing appreciated Focus on the right lower extremity: 3-4 cm in diameter over heel and shows superficial good granulating base. No significant necrosis. It is tender. Right second toe has necrotic tissue at the tip. Attempted to debride the tissue with patient's permission. Prepped with Betadine 1 cm diameter eschar tip second toe sharply debrided with his permission with scissors. Distal phalanx exposed with good bleeding tissue. Foot swollen but no surrounding erythema no drainage. The bone was underneath the eschar. Results & Data Results & Data Vital Signs (Past 12 Hours) Vital Signs Temp Pulse Resp BP Pulse Ox O2 Del Method 08/18/24 12:04 36.7 C 87 18 156/76 H 97 Room Air
[2024-08-18] MEDS: ceFAZolin 2000MG 2,000 MG/15 ML SYR IV SCH (13:55)
[2024-08-18] MEDS ORDERED: LIDOCAINE 2% 2 ML VIAL/AMP(20MG/ML) INFIL ONE (13:58)
[2024-08-18] MEDS ORDERED: PROPOFOL IV EMULSION 10 MG/ML 20 ML VIAL IV ONE (13:58)
[2024-08-18] MEDS ORDERED: ONDANSETRON INJ 2 MG/ML 2 ML VIAL ONE (13:58)
[2024-08-18] MEDS ORDERED: ePHEDrine sulfate 50 MG/5 ML SYR ONE (14:02)
[2024-08-18] MEDS: BUPIVACAINE 0.5 % 5 MG/1 ML MPF 30ML VIAL ONE (14:32)
[2024-08-18] MEDS: LIDOCAINE 1% LOCAL 20 ML VIAL ONE (14:32)
--- NOTE | 2024-08-18 14:52 | Operative Report ---
Post Operative Report Pre & Post Diagnosis Operation Date: 08/18/24 13:00 Pre-Op Diagnosis: Peripheral Vascular Disease, Diabetes, open wound of the right foot second toe with exposed distal phalanx, probable osteomyelitis Post-Op Diagnosis: Same I identified the patient and participated in the time-out.: Yes Procedure Operation Date: 08/18/24 13:00 Actual Procedures p Right Second Toe Amputation(Right) - Marquis Dominguze MD Surgeon Marquis Dominguez MD Consulting Services Project Manager None Estimated Blood Loss 1 Findings Consistent with Post-Op Diagnosis Specimens Right foot second toe for culture and biopsy Anesthesia Type General Regional Complications none Disposition Accompanied Patient To Recovery: No Disposition: Recovery Room Indications Mr. Gonzalez is 79 years old. He is currently undergoing treatment for left BKA infection. He has a superficial wound on his right heel which is doing well. He has developed a progressive chronic wound at the tip of the right second toe. When evaluated in the office and it was debrided revealed exposed distal phalanx bone. This is unlikely to heal given his diabetes and peripheral vascular disease. Likely osteomyelitis and I recommended an amputation and he agreed to proceed.He is on chronic daptomycin for his left lower extremity. Description of Procedure Informed consent. Patient identified. He identified the procedure site as the right foot second toe. I marked with my initials. A preoperative surgical timeout performed and a preop dose of antibiotics was given. He was taken to the operating room positioned supine on the OR table. A tourniquet was applied to the right calf below the peroneal nerve but not inflated during the case. The leg was scrubbed and then prepped and draped in usual sterile fashion. There was a 4 cm lesion on the heel in which the epidermis was lost secondary to blistering but there was healthy red dermal tissue beneath this without any surrounding erythema purulence or fluctuance. The right second toe demonstrated exposed bone at the tip with no active bleeding no erythema swelling purulence or drainage. 7 cc of a 50-50 mixture of lidocaine and Marcaine were injected for digital block. DVT prophylaxis was not indicated. Fluoroscopic guidance was utilized. I did a fishmouth amputation through the PIP joint of the second toe. The skin was incised just distal to the joint. The joint was entered the collateral ligaments resection. The flexor tendon was released and allowed to retract. A plantar flap was created. There was reasonable bleeding throughout including the flap. The toe was removed and sent for specimen. Culture and biopsy. The toe was irrigated and closed with interrupted 3-0 nylon horizontal mattress stitches. A soft sterile dressing was applied. Optifoam on the heel. Soft wrap Jonathan wrap postop shoe. Patient awakened from anesthesia without difficulty taken to the recovery room in stable condition. There were no complications. Counts were correct. Blood loss was 1 cc. At the conclusion of the procedure I spoke to the family discussed my findings and gave postop instructions. He will remain limited weightbearing on the right lower extremity secondary to his wounds. He will continue his IV daptomycin. Will see if the wound care nurse can see him about his left BKA. Anticipate discharge tomorrow if he is stable. I attest to the content of the Intraoperative Record and any orders documented therein. Any exceptions are noted below.
--- NOTE | 2024-08-18 15:05 | Fluoroscopy Report ---
FL toe RT 2V CLINICAL HISTORY: RIGHT TOE AMP COMPARISON STUDY: None. FLUOROSCOPY TIME: 1 second. Ka, r: 0.06 mGy FLUOROSCOPIC IMAGES: 1 FINDINGS: Fluoroscopy was provided during right second toe amputation. There are no unexpected radiop aque bodies. There are no fractures. Previous right first toe amputation is incidentally noted. IMPRESSION: Fluoroscopy provided during right second toe amputation. ACT 112: Negative or not required by law. Electronically signed by: Jimenez Clinton M.D. 08/18/2024 3:03 PM
--- NOTE | 2024-08-18 15:18 | Anesthesiology Progress Note ---
Date of Service August 18, 2024 Anesthesia Post Procedure Vital Signs Vital Signs: Temp Pulse Pulse Resp BP Pulse Ox O2 Del Method 08/18/24 15:10 80 18 138/68 95 Room Air 08/18/24 15:00 80 18 132/65 94 Room Air 08/18/24 14:50 85 20 128/61 98 Oxymask 08/18/24 14:38 37.4 C 83 14 128/62 97 Oxymask 08/18/24 12:04 36.7 C 87 18 156/76 H 97 Room Air O2 Flow Rate 08/18/24 15:10 08/18/24 15:00 08/18/24 14:50 3 08/18/24 14:38 6 08/18/24 12:04 Transfer of Care Handoff Completed per policy Notes Mental Status: alert / awake / arousable and participated in evaluation Patient Amnestic to Procedure: Yes Nausea / Vomiting: adequately controlled Pain: adequately controlled Airway Patency, RR, SpO2: stable & adequate BP & HR: stable & adequate Hydration State: stable & adequate Anesthetic Complications: no major complications apparent and Pt Satisfied with anesthetic care
[2024-08-18] MEDS ORDERED: DOCUSATE SODIUM 100 MG CAP PO PRN (15:56)
[2024-08-18] MEDS ORDERED: bisacodyL 10 MG SUPP PR PRN (15:56)
[2024-08-18] MEDS ORDERED: HYDROmorphone INJ 1 MG/ML SYRINGE IV PRN (15:56)
[2024-08-18] MEDS ORDERED: PHARMACY GLYCEMIC MGMT CONSULT PRN (15:56)
[2024-08-18] MEDS ORDERED: HYDROmorphone INJ 0.5 MG/0.5 ML SYR IV PRN (15:56)
[2024-08-18] MEDS ORDERED: TAMSULOSIN HCL 0.4 MG CAP PO PRN (15:56)
[2024-08-18] MEDS: SODIUM CHLORIDE 0.9% 1,000 ML IV SCH (16:39)
--- NOTE | 2024-08-18 17:07 | Consultation ---
<Statement entered by Chung Bailey MD - 08/18/24 19:04> Attending Addendum: Case reviewed with the advanced practitioner. I have personally performed a history and physical examination on the patient. I have reviewed the advanced practitioner's documentation on the date of service referenced in note, and I agree with, and take responsibility for the plan of care. Consultation by surgical team for medical management, will restart T1DM management in conjunction with pharmacy as well as address other chronic issues. 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 This included personally reviewing all current laboratories and imaging studies, medication reconciliation, outpatient chart review, and discussion with specialist History of Present Illness Reason for Consultation: Post-op medical management Peripheral Vascular Disease, Diabetes, open wound of the right foot second toe with exposed distal phalanx, probable osteomyelitis Attending Physician: Marquis Dominguez MD History of Present Illness The patient is a 79-year-old male with a past medical history of left below-knee amputation on 07/04/2024, SIADH, anemia, CAD/CABG, PAD, carotid stenosis, HTN, DM type I, CKD 3, hypothyroidism who presented to the hospital today 08/18/2024 Patient was recently hospitalized on 07/28/2024 s/p left BKA with a postop infect ion of stump. S/p left knee I&D, revision amputation left leg on 08/15 OR cultures were growing staph MRSA A PICC line was ordered by Ortho for IV antibiotic course. Hospital medicine follow-up throughout the admission Today, the patient is s/p right second toe amputation with Dr. Gomez Cummings. We were asked to see the patient for postop management The patient is still currently undergoing treatment for left BKA infection. He had a superficial wound on his right heel and he developed a progressive chronic wound at the tip of the right second toe. The patient was evaluated in the office and it was debrided that showed an exposed distal phalanx bone. With his underlying issues of diabetes and peripheral vascular disease, there was suspicion for osteomyelitis and it was recommended for right second toe amputation. He continues on daptomycin for his left lower extremity infection. On exam, the patient is sitting in bed eating dinner. Denies any chest pain/shortness of breath/fever/chills/nausea/vomiting/diarrhea/abdominal pain. Allergies Allergy/AdvReac Type Severity Reaction Status Date / Time tramadol Allergy Severe horrible Verified 08/18/24 11:50 experience>muscle stiffness, low bs amoxicillin [From Augmentin] AdvReac Severe Vomiting Verified 08/18/24 11:50 clavulanic acid AdvReac Severe Vomiting Verified 08/18/24 11:50 [From Augmentin] codeine AdvReac Severe Vomiting Verified 08/18/24 11:50 sulfamethoxazole AdvReac Severe Vomiting Verified 08/18/24 11:50 [From Bactrim] trimethoprim [From Bactrim] AdvReac Severe Vomiting Verified 08/18/24 11:50 Home Medications Medication Instructions Recorded Confirmed Type atorvastatin 40 mg tablet (Lipitor) 40 mg PO 1700 08/24/19 08/18/24 History cholecalciferol (vitamin D3) 50 2,000 units PO 1200 #90 caps 08/24/19 08/18/24 History mcg (2,000 unit) capsule coenzyme Q10 100 mg capsule 100 mg PO QPM 08/24/19 08/18/24 History levothyroxine 50 mcg tablet 50 mcg PO QAM #90 tabs 08/24/19 08/18/24 History gjkfwltt-atjxfzgl-qxmvi acid 400 1 tab PO DAILY 08/24/19 08/18/24 History mcg-vit K 20 mcg-lycop 300 mcg tablet (One-A-Day Men's Multivitamin) glucagon (human recombinant) 1 mg 1 mg subcut Q20M PRN hypoglycemia 09/15/19 08/18/24 Rx solution for injection (Glucagon #1 ea Emergency Kit) alendronate 35 mg tablet 35 mg PO WK 05/22/24 08/18/24 History cetirizine 10 mg tablet (Allergy 10 mg PO QPM 05/22/24 08/18/24 History Relief (cetirizine)) insulin glargine 100 unit/mL 18 unit subcut QAM 05/22/24 08/18/24 History subcutaneous solution (Lantus U-100 Insulin) insulin lispro 100 unit/mL See Rx Instructions subcut .COMPLEX 05/22/24 08/18/24 History subcutaneous pen (Humalog KwikPen (U-100) Insulin) timolol 0.25 % eye drops 1 drp ophthalmic (eye) BID 05/22/24 08/18/24 History apixaban 5 mg tablet (Eliquis) 5 mg PO BID #60 tabs 06/06/24 08/18/24 Rx brimonidine 0.1 % eye drops 1 drp ophthalmic (eye) BID 06/27/24 08/18/24 History (Alphagan P) amlodipine 2.5 mg tablet 2.5 mg PO 1200 06/29/24 08/18/24 History clopidogrel 75 mg tablet 75 mg PO QPM 06/29/24 08/18/24 History metoprolol succinate 50 mg 50 mg PO QAM 06/29/24 08/18/24 History tablet,extended release 24 hr acetaminophen 500 mg tablet 1,000 mg (2 x 500 mg) PO Q8H PRN 07/07/24 08/18/24 Rx (Tylenol Extra Strength) pain #30 tabs docusate sodium 100 mg capsule 100 mg PO BID PRN Constipation 08/11/24 08/18/24 History daptomycin 500 mg intravenous 500 mg IV DAILY 08/17/24 08/18/24 History solution Patient History Medical History MRSA (methicillin resistant Staphylococcus aureus) Neuropathy Anemia pt given 1 unit PRBCs during 07/25-07/28/24 hospital admission Mitral regurgitation mild-mod per 03/2024 ECHO Diabetic foot ulcers current: necrosis R 2nd toe and R heel would; following with wound care. 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; Discharged on DOAC (DOAC D/C at 08/11/24 vascular visit; pt to replace with [id number] daily) Chronic kidney disease stage 3 Proliferative diabetic retinopathy Osteopenia CAD (coronary artery disease) Amputation of toe of right foot partial big toe amputation Ashlie thyroiditis PVD (peripheral vascular disease) Type 1 diabetes Hyperlipidemia Hypertension Hypothyroidism Surgical History Hx of left BKA 07/04/24 S/P PICC central line placement History of amputation (07/26/24) I&D, left bka revision: LMA#4 iGel; pt remains on IV abx and following with wound care History of colonoscopy S/P eye surgery retinopexy bilateral laser surgery History of cataract surgery bilateral History of cardiac cath (09/2003) at [facility]. no stents Hx of CABG (10/11/03) CABG x 4 2002 [facility] Family History Father Gout Other No family history of adverse response to anesthesia Social History Smoking Status: Never smoker Second Hand Exposure: No; Do You Dip or Chew Tobacco: No; Hx Alcohol Use: No Hx Substance Use: No Preferred Language: [place] Citizen Communication Ability: Effective Medical Donation Professional Required: No Beliefs That Will Affect Care: None Current Living Situation: Spouse Feels Safe at Home: Yes Safety Concerns: Feels Safe At This Time Assistive Devices: Glasses and Wheelchair Review of Systems Review of Systems: All systems reviewed & are unremarkable except as noted in HPI & below Physical Exam Constitutional: WD/WN, vitals as above Eyes: PERRL, conjunctivae normal, anicteric sclerae ENMT: external ear and nose normal, oropharynx normal Neck: trachea midline, no thyromegaly Respiratory: normal respiratory effort, lungs clear to auscultation Cardiovascular: RRR, no murmur, no edema Chest (Breasts): normal inspection/palpation of breasts Gastrointestinal (Abdomen): normal bowel sounds, soft, nontender, no hepatosplenomegaly Musculoskeletal: no cyanosis or clubbing, extremities motor strength 5/5 (Left BKA, right second toe amputation) Skin: no rashes, warm and dry Neurologic: PERRL, EOMI, accommodation nl, no face palsy, no dysarthria Psychiatric: A+Ox3, euthymic affect Lymphatic: no cervical or axillary lymphadenopathy Results & Data Vital Signs (Past 12 Hours) Vital Signs Temp Pulse Pulse Resp BP Pulse Ox O2 Del Method 08/18/24 16:40 36.9 C 86 18 160/71 H 95 Room Air 08/18/24 16:19 Room Air 08/18/24 16:19 36.7 C 88 16 156/66 H 94 Room Air 08/18/24 16:16 36.7 C 88 18 156/66 H 94 Room Air 08/18/24 15:45 83 20 148/63 H 97 Room Air 08/18/24 15:30 78 16 146/67 H 94 Room Air 08/18/24 15:10 37.3 C 80 18 138/68 94 Room Air 08/18/24 15:00 80 18 132/65 94 Room Air 08/18/24 14:50 85 20 128/61 98 Oxymask 08/18/24 14:38 37.4 C 83 14 128/62 97 Oxymask 08/18/24 12:04 36.7 C 87 18 156/76 H 97 Room Air O2 Flow Rate 08/18/24 16:40 08/18/24 16:19 08/18/24 16:19 08/18/24 16:16 08/18/24 15:45 08/18/24 15:30 08/18/24 15:10 08/18/24 15:00 08/18/24 14:50 3 08/18/24 14:38 6 08/18/24 12:04 Diagnostic Findings Laboratory Results WBC 11.80 K/ul (4.8-10.8) H 08/18/24 11:59 RBC 3.09 M/uL (4.70-6.10) L 08/18/24 11:59 Hgb 9.2 g/dl (14.0-18.0) L 08/18/24 11:59 Hct 27.6 % (42.0-52.0) L 08/18/24 11:59 MCV 89.3 fL (80.0-100.0) 08/18/24 11:59 MCH 29.8 pg (25.0-34.0) 08/18/24 11:59 MCHC 33.3 g/dL (32.0-36.0) 08/18/24 11:59 RDW Std Deviation 46.7 fL (36.4-46.3) H 08/18/24 11:59 RDW Coeff of Swetha 14.3 % (11.5-14.5) 08/18/24 11:59 Plt Count 429 K/uL (130-400) H 08/18/24 11:59 MPV 8.8 fL (9.4-12.4) L 08/18/24 11:59 Immature Gran % (Auto) 0.5 % 08/18/24 11:59 Neut % (Auto) 66.4 % 08/18/24 11:59 Lymph % (Auto) 11.6 % 08/18/24 11:59 [place] % (Auto) 11.7 % 08/18/24 11:59 Eos % (Auto) 9.4 % 08/18/24 11:59 Baso % (Auto) 0.4 % 08/18/24 11:59 Neut # (Auto) 7.83 K/uL (1.40-6.50) H 08/18/24 11:59 Lymph # (Auto) 1.37 K/uL (1.20-3.40) 08/18/24 11:59 [place] # (Auto) 1.38 K/uL (0.11-0.59) H 08/18/24 11:59 Eos # (Auto) 1.11 K/uL (0.00-0.50) H 08/18/24 11:59 Baso # (Auto) 0.05 K/uL (0.00-0.20) 08/18/24 11:59 Immature Gran # (Auto) 0.06 K/uL (0.01-0.20) 08/18/24 11:59 Sodium 130 mmol/L (136-145) L 08/18/24 11:59 Potassium 3.9 mmol/L (3.5-5.1) 08/18/24 11:59 Chloride 98 mmol/L (98-107) 08/18/24 11:59 Carbon Dioxide 22 mmol/L (21-32) 08/18/24 11:59 Anion Gap 10 (3-11) 08/18/24 11:59 BUN 22 mg/dl (6-23) 08/18/24 11:59 Creatinine 1.00 mg/dl (0.6-1.4) 08/18/24 11:59 Est Cr Clr Drug Dosing 51.9 ml/min 08/18/24 11:59 Est GFR ( Amer) 82.6 ml/min 08/18/24 11:59 Est GFR (Non-Af Amer) 71.3 ml/min 08/18/24 11:59 BUN/Creatinine Ratio 22.0 (10-20) H 08/18/24 11:59 Glucose 159 mg/dl (70-99(Fasting)) H 08/18/24 11:59 POC Glucose 148 mg/dl (70-99) H 08/18/24 16:26 Calcium 8.8 mg/dl (8.6-10.3) 08/18/24 11:59 Impressions Toe X-Ray 08/18/24 13:00 FL toe RT 2V CLINICAL HISTORY: RIGHT TOE AMP COMPARISON STUDY: None. FLUOROSCOPY TIME: 1 second. Ka, r: 0.06 mGy FLUOROSCOPIC IMAGES: 1 FINDINGS: Fluoroscopy was provided during right second toe amputation. There are no unexpected radiopaque bodies. There are no fractures. Previous right first toe amputation is incidentally noted. IMPRESSION: Fluoroscopy provided during right second toe amputation. ACT 112: Negative or not required by law. Electronically signed by: Jimenez Clinton M.D. 08/18/2024 3:03 PM (2) Post-operative infection Encounter type: initial encounter Postoperative infection type: deep incis ional surgical site Qualified Code(s): T81.42XA - Infection following a procedure, deep incisional surgical site, initial encounter
[2024-08-18] MEDS ORDERED: GLUCOSE 10 TAB/TUBE PO PRN ×2 (17:15→17:30)
[2024-08-18] MEDS ORDERED: GLUCOSE 40% GEL 15 GM TUBE PO PRN ×2 (17:15→17:30)
[2024-08-18] MEDS ORDERED: GLUCAGON FOR INJ 1 MG VIAL SQ PRN ×2 (17:15→17:30)
[2024-08-18] MEDS ORDERED: DEXTROSE 50% 50 ML SYRINGE IV PRN ×2 (17:15→17:30)
[2024-08-18] MEDS ORDERED: CARBOHYDRATES FOR HYPOGLYCEMIA PO PRN (17:30)
[2024-08-18] MEDS: INSULIN ASPART PER UNIT CHARGE SC SCH (17:38)
[2024-08-18] MEDS: CLOPIDOGREL BISULFATE 75 MG TAB PO SCH (20:58)
[2024-08-18] MEDS ORDERED: INSULIN ASPART PER UNIT CHARGE SC SCH (21:00)
[2024-08-18] MEDS ORDERED: NON-FORMULARY MEDICATION (Coenzyme Q10 100 mg capsule) PO SCH (21:00)
[2024-08-18] MEDS: TIMOLOL MALEATE 0.25% OP SOLN 5 ML BTL OP SCH (21:00)
[2024-08-18] MEDS: DOCUSATE SODIUM 100 MG CAP PO SCH (21:00)
[2024-08-18] MEDS ORDERED: LANTUS PER UNIT CHARGE SQ SCH (21:00)
[2024-08-18] MEDS ORDERED: TIMOLOL MALEATE 0.25% OP SOLN 5 ML BTL OP SCH (21:00)
[2024-08-18] MEDS: CETIRIZINE HCL 10 MG TABLET PO SCH (21:00)
--- OUTSIDE RECORDS SUMMARY | 2024-08-18 21:15 | External Medical Summary | Summary of Care ---
Author Name Unknown Organization [facility] Address [address] [place] [address] Phone [phone] Care Team Providers Care Intake Rn Name Role Phone Louisa Quiroga DO Primary Care Provider [phone]- [phone] Reason for Visit * Reason Onset Date Comments Health Maintenance 08/14/2024 Encounter Details Date Type Department Care Team (Late st Contact Info) Description 08/14/2024 Telephone Family Practice [facility] [place] [address] [place], [place] [id number] Louisa Quiroga DO [address] [place] [address] Health Maintenance Allergies Active Allergy Reactions Criticality Noted Date Comments Amoxicillin Nausea/vomiting 02/12/2023 Morphine And Codeine Nausea/vomiting Low 02/28/2010 Pollen 02/28/2010 Guaifenesin-Codeine Nausea/vomiting Low 02/28/2010 Sulfamethoxazole-Trimethoprim Nausea/vomiting 0 06/17/2018 documented as of this encounter (statuses as of 08/14/2024) Medications Medication Sig Dispensed Refills Start Date [...] A1c goal of less than 7.0% ([facility]) Sliding scale 8-12 units prior to meals 4 Each 5 06/15/2023 Active Insulin Syringe-Needle U-100 31G X 1/4" 0.3 MLIndications:Diabete s mellitus with background retinopathy ([facility]) Use as directed. For use of insulin up to 4 times daily 400 Each 3 07/24/2023 Active Metoprolol Succinate ER 50 MG Oral Tablet Extended Release 24 Hour (toPROL XL) TAKE 1 TABLET BY MOUTH IN THE MORNING 90 Tablet 1 02/08/2024 Active Vitamin D3 250 MCG (79618 UT) Oral Tablet (Cholecalciferol) Take 1 Tablet by mouth every evening. Active Timolol Maleate 0.25 % Ophthalmic Solution (Timoptic) Instill 1 Drop into both eyes in the morning and 1 Drop before bedtime. 07/07/2023 Active Pen [place] 31G X 5 MMIndications:Type 1 diabetes mellitus with hemoglobin A1c goal of less than 7.0% ([facility]) Use as directed. 400 Each 3 03/14/2024 [...] hours as needed for Pain, Severe. Active Levothyroxine Sodium 50 MCG Oral Tablet (Levoxyl)Indications: Acquired hypothyroidism TAKE 1 TABLET BY MOUTH DAILY FIRST THING IN THE MORNING 90 Tablet 2 07/09/2024 Active documented as of this encounter (statuses as of 08/14/2024) Active Problems Problem Noted Date Diagnosed Date [...] as of this encounter (statuses as of 08/14/2024) Resolved Problems Problem Noted Date Diagnosed Date Resolved Date RENAL INSUFFICIENCY 07/08/2010 03/02/20 24 documented as of this encounter (statuses as of 08/14/2024) Immunizations Name Administration Dates Next Due COVID-19 [...] ant, RIV4, PF, (Flublock) 09/02/2022,09/03/2021,09/02/2020,08/30 Seasonal Influenza, Trivalen t, (IIV3), with Preserv, (Fluzone) 09/03/2021,09/02/2020,08/30/2019,07/29,08/28/2015,08/01/2013,08/24/2011 ,09/10/2009,10/13/2004 TD, Preservative Free 11/22/1997 TDAP, [...] the money to buy more. Never true 08/08/20 24 Within the past 12 months, t [...] on file documented as of this encounter Miscellaneous Notes * Telephone Encounter - Fransisca Melendrez LPN - 08/14/2024 11:53 AM EDT Care Gaps Comprehensive Care Outreach Last Office/Telemedicine Visit: 03/02/2024 (in office), Visit date not found (telemedicine) Next Office Visit: 08/31/2024 Hemoglobin AIC Results: Lab Results Component Value Date/Time HEMOGLOBIN A1C - [facility] 7.3 (H) 03/02/2024 10:30 AM HEMOGLOBIN A1C - [facility] 8.1 (H) 06/15/2023 12:11 PM HEMOGLOBIN A1C - [facility] 9.9 (H) 04/09/2011 10:44 AM BP Readings from Last 1 Encounters: 06/29/24 128/68 Reviewed Health Maintenance below: Health Maintenance Topic Date Due Hepatitis C Screening Never done Adult Wellness Visit Never done Diabetic Foot Exam 05/15/2012 CKD PHOS USE SMARTSET 16757 06/15/2024 HbA1c 09/01/2024 Diabetic Eye Exam 11/10/2024 GFR 02/02/2025 Albumin/Creatinine Ratio 03/02/2025 Care Gap Outreach Action Taken: Left message documented in this encounter Plan of Treatment Upcoming Encounters Date Type Department Care Team (Late st Contact Info) Description 08/31/2024 9:40 AM EDT Office Visit Family Practice [address] [place] [address] Louisa Quiroga DO [address] [place] [address] Health Maintenance Due Date Last Done Comments Hepatitis C Screening 1963 Adult Wellness Visit 2011 Diabetic Foot Exam 05/15/2012 05/15/2011, 06/02/2010 CKD PHOS USE SMARTSET 98287 06/15/2024 06/15/2023 COVID-19 Vaccine ( season) 2024 09/20/2023, 08/21/2022, 09/05/2021, Additional history exists Influenza Vaccine (FLU shot) (#1) 2024 08/09/2023, 09/02/2022, 09/03/2021, Additional history exists HbA1c 09/01/2024 03/02/2024, 07/2 03/2023, 09/03/2022, Additional history exists Diabetic Eye Exam 11/10/2024 11/10/2023, , 08/22/2021, Additional history exists GFR 02/02/2025 08/05/2024, 05/2024, 07/23/2024, Additional history exists Albumin/Creatinine Ratio 03/02/2025 024, 06/15/2023, 02/25/2022, Additional history exists Depression Monitoring 06/29/2025 06/29/2024, 024 TSH 08/01/2025 08/01/2024, 02/20, 06/15/2023, Additional history exists CKD HGB USE SMARTSET 74304 08/05/202508/05, 07/29/2024, 07/23/2024, Additional history exists DTap/Tdap Vaccines (3 - Td or Tdap) 04/13/2032 [...] Not on filedocumented as of this encounter Care Teams Intake Rn Relationship Specialty Start Date End Date Louisa Quiroga DO [address] [facility] [place] [address] PCP - General Family Medicine 07/03/24 documented as of this encounter
--- OUTSIDE RECORDS SUMMARY | 2024-08-18 21:15 | External Medical Summary | Continuity of Care Document ---
Author Name Unknown Organization [facility] [address] [place], [place] [address] Address [address] [place] [address] [phone] Care Team Providers Care Supervisor Education Name Role Phone Louisa Quiroga Primary Care Physician [phone] [facility]counter [facility] [id number] Date(s): 08/09/24 - 08/09/24 [facility] [address] [id number] [facility] [address] [place] [id number] Encounter Diagnosis Delayed wound healing(Discharge Diagnosis) - 08/10/24 S/P BKA (below knee amputation)(Discharge Diagnosis) - 08/10/24 Ischemic necrosis of foot(Discharge Diagnosis) - 08/10/24 PAD (peripheral artery disease)(Discharge Diagnosis) - 08/10/24 Pressure ulcer of heel(Discharge Diagnosis) - 08/11/24 Discharge Disposition: Home or Self Care Attending Physician: MARCO Paz Jennifer R Allergies, Adverse Reactions, Alerts Substance Criticality Severity Reaction Reaction Severity Status codeine Amoxicillin vomiting Active Augmentin vominting Active traMADol low blood sugar , stiff, dizzy Active amoxicillin vomiting Active Assessment and Plan Extracted from: Title:Orthopaedics Office Visit Note Author:Gianna muro PA-C, Jennifer R Date:08/09/24 1. Status post left BKA, s tatus post I&D left BKA stump infection Continue dressings on the left BKA stump. Okay to change every 2 days. May get wet in the shower. Will refer to wound clinic for further evaluation of and treatment of the delayed wound healing. Sutures are left in place today. Encouraged ice and elevation. His feels comfortable changing the dressings on her own. Continue the IV daptomycin as recommended by infectious disease. Follow-up with ID as scheduled. Follow-up next week as scheduled with Dr. Dominguez. Call with any worsening problems, questions or concerns. 2. Pressure ulcer of right heel The blister was unroofed using sterile technique today. Optifoam dressing was applied to the heel. He will be seeing Dr. Devan Farr on Wednesday for evaluation and determination of blood flow to the right lower extremity to see if he can heal this ulcer. Encouraged no pressure on the right heel at all times.Keep the Optifoam dressing in place. Call with any problems, questions or concerns. Dr. Dmoinguez was aware of today's findings. Medications alendronate 35 mg oral tablet Start: [...] Start Date: 06/26/24 Status: Ordered Mental Status 08/09/24 Barriers to Learning one year None evide nt Mandatory Health Literacy Documentation Yes Health Literacy Communication Barriers N ever Primary Language Slovenian Problem List Condition Confirmation Course Effective Dates Status Health St atus Informant Ischemic necrosis of foot Confirmed Active PAD (peripheral artery disease) Confirmed Active Pressure ulcer of heel Confirmed Active Diagnosis Diagnosis Type Effective Dates Health Status Cl inical Service Informant S/P BKA (below knee amputation) Discharge Diagnosis 08/10/24 Non-Specified Delayed wound healing Discharge Diagnosis 08/10/24 Non-Specified Ischemic necrosis of foot Discharge Diagnosis 08/10/24 Non-Specified PAD (peripheral artery disease) Discharge Diagnosis 08/10/24 Non-Specified Pressure ulcer of heel Discharge Diagnosis 08/11/24 Non-Specified Procedures Procedure Date Related Diagnosis Body Site Status Amputation below-knee 1 07/04/24 C ompleted 1Left Social History Social History Type Response Smoking Status Never smoked cigaret luana Sex Male Sex Representation Male (finding) Ortho Outpt Note * MARCO Paz, Gege R: PERFORM, MODIFY, MODIFY Event Display: Ortho Outpt Note Authored Date: [id number] Primary Care Provider DO Quiroga Jessie L Chief Complaint dressing change l bka History of Present Illness Patient is here today with his . He has been discharged [facility] on Wednesday and has beenhome ever since. He is continued his PICC line and IV antibiotics. He is on IV daptomycin daily. He has an upcoming appointment in August with infectious disease at [facility]. He has an appoint with Dr. Devan Farr this Wednesday with regards to blood flow to the right lower extremity. Denies any significant pain in the left leg or right foot. His did not change his dressing asit was changed on Wednesday and he was coming in today for an appointment. They have not noticed anysignificant drainage. He said no fevers or chills. He has not been wearing his stump protector.He has been elevating. He does feel that the swelling has improved. He has been keeping pressure off of the right heel. He has not seen it and he does not know how it looks today as compared to last appointment. Review of Systems Denies any recent cough, cold, fevers, chills or flulike symptoms. He denies any lightheadedness, dizziness, syncopal episodes, headaches, migraines or seizures. Denies any bleeding or clotting disorders or history of DVT or pulmonary embolism. Denies any recent hospitalizations. Denies any historyof metal sensitivity, latex allergy or MRSA. Denies any shortness of breath or chest pain. Denies abdominal pain, heartburn, indigestion, nausea, vomiting, diarrhea or constipation. Denies any urinary tract infections. Denies any hearing or vision changes. Denies any dental problems. Physical Exam Exam of his left lower extremity: His incision of his left stump is intact. There in the anterioraspect of the incision is a couple areas healed opening of about 2 to 3 mm. There is healthy granulation tissue. Mild serous drainage on the dressings. No active bleeding or drainage. No underlying seroma or hematoma. Sutures are still retained. The stump itself is much less swollen with positive skin wrinkles. There is no tenderness throughout the stump. The skin is otherwise intact and healthy. He is able to flex and extend his left knee. There is no knee joint effusion. No surrounding erythema or ecchymosis to the stump or incision. Exam of his right foot: He has a large blood blister on the back of his right heel. It is nontender to palpation but fluid-filled. It is deepinpurpleish coloration. Today under sterile technique after was cleansed with Betadine the blister was unroofed with sterile pickups and a scissors.Please see below the [id number] picture. Diagnostic Results Images 2024-08-09 14:42:10 2024-08-09 14:50:23 Assessment/Plan 1. Status post left BKA, status post I&D left BKA stump infection Continue dressings on the left BKA stump. Okay to change every 2 days. May get wet in the shower. Will refer to wound clinic for further evaluation of and treatment of the delayed wound healing. Sutures are left in place today. Encouraged ice and elevation. His feels comfortable changing the dressings on her own. Continue the IV daptomycin as recommended by infectious disease. Follow-up with ID as scheduled. Follow-up next week as scheduled with Dr. Dominguez. Call withany worsening problems, questions or concerns. 2. Pressure ulcer of right heel The blister was unroofed using sterile technique today. Optifoam dressing was applied to the heel. He will be seeing Dr. Devan Farr on Wednesday for evaluation and determination of blood flow to the right lower extremity to see if he can heal this ulcer. Encouraged no pressure on the right heel at all times.Keep the Optifoam dressing in place. Call with any problems, questions orconcerns. Dr. Dominguez was aware of today's findings. Problem List/Past Medical History Ongoing Ischemic necrosis of foot PAD (peripheral artery disease) Pressure ulcer of heel Procedure/Surgical History Amputation below-knee| Service Date: 07/04/2024 Medications alendronate(alendronate 35 mg oral tablet) amLODIPine(amLODIPine 2.5 mg oral tablet) apixaban(Eliquis 5 mg oral tablet) atorvastatin(atorvastatin 80 mg oral tablet) clopidogrel(Plavix 75 mg oral tablet) doxycycline(doxycycline hyclate 100 mg oral capsule) insulin glargine(insulin glargine (Lantus)) insulin lispro(HumaLOG KwikPen 100 units/mL injectable solution), 4 unit levothyroxine(levothyroxine 50 mcg (0.05 mg) oral tablet) metoprolol(Metoprolol Succinate ER 50 mg oral tablet, extended release) timolol ophthalmic(timolol maleate 0.25% ophthalmic solution) traMADol(traMADol 50 mg oral tablet) ubiquinone(CoQ10) Allergies Augmentinvominting amoxicillinvomiting codeineAmoxicillin, vomiting traMADollow blood sugar, stiff, dizzy Electronic Signature on File Electronically Reviewed/Signed by: Gege Paz PA-C Author Signature Dt/Tm:08/10/2024 03:25PM Division of Sports Medicine Electronically Reviewed/Signed by: MD Lokesh Sanchezigner Signature Dt/Tm: 08/10/2024 04:19 PM Division of Sports Medicine [facility] Patient Care team information Care Team Personnel Name: DO Quiroga Jessie L Position: Referring DIRECT Member Role: Primary Care Provider Address: [address] [place] [address] [place]"
--- OUTSIDE RECORDS SUMMARY | 2024-08-18 21:15 | External Medical Summary | Summary of Care ---
Author Name Unknown Organization [facility] Address [address] [place] [address] Phone [phone] Care Team Providers Care School Superintendent Name Role Phone Louisa Quiroga DO Primary Care Provider [phone] Reason for Visit * Reason Onset Date Comments Encounter Created in Error 08/14/2024 Encounter Details Date Type Department Care Team (Late st Contact Info) Description 08/14/[address] [facility] [place] [address] [place] [address] Louisa Quiroga DO [address] [place] [address] Encounter created in error Allergies Active Allergy Reactions Criticality Noted Date [...] MG PO TABSIndications:Impot ence of organic origin / TABLET NEEDED 5 Tab 11 05/15/2011 Active [...] hemoglobin A1c goal of less than 7.0% (HCC) Sliding scale 8-12 units prior to meals 4 Each 5 06/15/2023 Active Insulin Syringe-Needle U-100 31G X 1/4" 0.3 MLIndications:Diabete s mellitus with background retinopathy ([facility]) Use as directed. For use of insulin up to 4 times daily 400 Each 3 07/24/2023 Active Metoprolol Succinate ER 50 MG Oral Tablet Extended Release 24 Hour (toPROL XL) TAKE 1 TABLET BY MOUTH IN THE MORNING 90 Tablet 1 02/08/2024 Active Vitamin D3 250 MCG (50751 UT) Oral Tablet (Cholecalciferol) Take 1 Tablet by mouth every evening. Active Timolol Maleate 0.25 % Ophthalmic Solution (Timoptic) Instill 1 Drop into both eyes in the morning and 1 Drop before bedtime. 07/07/2023 Active Pen [place] 31G X 5 MMIndications:Type 1 diabetes mellitus with hemoglobin A1c goal of less than 7.0% ([facility]) Use as directed. 400 Each 3 03/14/2024 [...] mRNA, LNP-s, No Pre serve, 2-Dose Series ([employer]) 09/05/2021,01/30/2021,01/03/2021 DTaP Dipth/Tet/Acell Pertussis (Infanrix), Peds 04/13/2022 [...] Encounter - Fransisca Melendrez LPN - 08/14/2024 11:58 AM EDT This encounter was created in error. 08/14/2024, 11:59 AM, Fransisca Melendrez LPN documented in this encounter Plan of Treatment Upcoming Encounters Date Type Department Care Team (Late st Contact Info) Description 08/31/2024 9:40 AM EDT Office Visit [facility] [address] [place] [address] Louisa Quiroga DO [address] [place] [address] Health Maintenance Due Date Last Done Comments Hepatitis C Screening 1963 Adult Wellness Visit 2011 Diabetic Foot Exam 05/15/2012 05/15/2011, 06/02/2010 CKD PHOS USE SMARTSET 42384 06/15/2024 06/15/2023 COVID-19 Vaccine ( season) 2024 09/20/2023, 08/21/2022, 09/05/2021, Additional history exists Influenza Vaccine (FLU shot) (#1) 2024 08/09/2023, 09/02/2022, 09/03/2021, Additional history exists HbA1c 09/01/2024 03/02/2024, 0703/2023, 09/03/2022, Additional history exists Diabetic Eye Exam 11/10/2024 11/10/2023, , 08/22/2021, Additional history exists GFR 02/02/2025 08/05/2024, 09/0 05/2024, 07/23/2024, Additional history exists Albumin/Creatinine Ratio 03/02/2025 024, 06/15/2023, 02/25/2022, Additional history exists Depression Monitoring 06/29/2025 06/29/2024, 024 TSH 08/01/2025 08/01/2024, 0411/2023, 06/15/2023, Additional history exists CKD HGB USE SMARTSET 56246 08/05/202508/05, 07/29/2024, 07/23/2024, Additional history exists DTap/Tdap [...] as of this encounter Visit Diagnoses Diagnosis Encounter Created In Error- Primary documented in this encounter Care Teams School Superintendent Relationship Specialty Start Date End Date Louisa Quiroga DO [address] [facility] [place] [place] [address] PCP - General Family Medicine 07/03/24 documented as of this encounter
[2024-08-19] MEDS: MAGNESIUM HYDROXIDE SUSP 30 ML UDC PO PRN (04:25)
[2024-08-19] MEDS: LEVOTHYROXINE SODIUM 50 MCG TABLET PO SCH (06:16)
[2024-08-19 07:22] LABS: Hemoglobin 7.6 g/dl (14.0-18.0); Mean Corpuscular Hemoglobin 29.8 pg (25.0-34.0); Mean Corpuscular Volume 90.2 fL (80.0-100.0); Mean Platelet Volume 8.7 fL (9.4-12.4); Platelet Count 372 K/uL (130-400); RDW Coefficient of Variation 14.3 % (11.5-14.5); RDW Standard Deviation 47.7 fL (36.4-46.3); Red Blood Count 2.55 M/uL (4.70-6.10); White Blood Count 11.12 K/ul (4.8-10.8)
[2024-08-19 07:45] LABS: BUN Creatinine Ratio 20.9 (10-20); Calcium 7.8 mg/dl (8.6-10.3); Creatinine Clr Calc Pharmacy 47.2 ml/min; Est GFR (African American) 73.6 ml/min; Est GFR (Non-African American) 63.5 ml/min; Potassium 4.1 mmol/L (3.5-5.1)
[2024-08-19] MEDS: LANTUS PER UNIT CHARGE SQ SCH ×2 (08:53→20:14)
[2024-08-19] MEDS ORDERED: DAPTOmycin 500 MG VIAL IV SCH (09:00)
[2024-08-19] MEDS: COUGH DROP (SUGAR FREE) LOZ 24 LOZ/1 BOX BUCCAL ONE (09:02)
[2024-08-19] MEDS: METOPROLOL SUCC 50MG EXT REL TAB PO SCH (09:03)
[2024-08-19] MEDS: MULTIVITAMIN TAB PO SCH (09:03)
[2024-08-19] MEDS: APIXABAN 5 MG TABLET PO SCH (09:35)
[2024-08-19] MEDS: SENNA 8.6 MG TAB PO PRN (10:06)
--- NOTE | 2024-08-19 10:06 | Orthopedic Progress Note ---
Date of Service August 19, 2024 Assessment & Plan (1) Diabetic foot ulcer: Plan: Findings discussed. Senokot for constipation. Incentive spirometry. Pulmonary toilet. Out of bed sitting in the chair with leg elevated. May bear weight with postop shoe on right leg for pivot transfer. Hemoglobin is down to 7 from 9 yesterday. It may have been drawn through the PICC line. He has not had any lightheadedness dizziness. He is not tachycardic. Will recheck the H&H. He may need to stay here be because of that and the fever. Temperature is likely secondary to atelectasis. Promote pulmonary toilet. He will continue his IV daptomycin. Admission and Anticipated Discharge Date Admission Date: August 18, 2024 Subjective Patient reports he is constipated. He had some questions about his dressing. Also about weightbearing. He can weight-bear with the postop shoe just for transfers otherwise a do not want him walking on the right foot. Physical Exam Physical Exam: Right foot dressing is clean dry and intact. Left BKA dressing is changed. There are 2 or three 5 mm spots of dried bloody drainage on the dressing otherwise there is no erythema or drainage. There are Steri-Strips over the areas that have not completely healed. Otherwise the wound looks benign there is no erythema induration or significant swelling. New dressing applied. Results & Data Vital Signs (Past 12 Hours) Vital Signs Temp Pulse Resp BP Pulse Ox O2 Del Method 08/19/24 08:04 37.3 C 80 15 92 Room Air 08/19/24 07:15 38.4 C H 83 16 130/60 91 Room Air 08/19/24 03:00 36.9 C 83 16 128/56 L 93 Room Air 08/18/24 23:16 37.3 C 87 14 148/61 H 95 Room Air Laboratory Results Laboratory Results WBC 11.12 K/ul (4.8-10.8) H 08/19/24 06:36 RBC 2.55 M/uL (4.70-6.10) L 08/19/24 06:36 Hgb 7.6 g/dl (14.0-18.0) L 08/19/24 06:36 Hct 23.0 % (42.0-52.0) L 08/19/24 06:36 MCV 90.2 fL (80.0-100.0) 08/19/24 06:36 MCH 29.8 pg (25.0-34.0) 08/19/24 06:36 MCHC 33.0 g/dL (32.0-36.0) 08/19/24 06:36 RDW Std Deviation 47.7 fL (36.4-46.3) H 08/19/24 06:36 RDW Coeff of Swetha 14.3 % (11.5-14.5) 08/19/24 06:36 Plt Count 372 K/uL (130-400) 08/19/24 06:36 MPV 8.7 fL (9.4-12.4) L 08/19/24 06:36 Immature Gran % (Auto) 0.5 % 08/18/24 11:59 Neut % (Auto) 66.4 % 08/18/24 11:59 Lymph % (Auto) 11.6 % 08/18/24 11:59 [place] % (Auto) 11.7 % 08/18/24 11:59 Eos % (Auto) 9.4 % 08/18/24 11:59 Baso % (Auto) 0.4 % 08/18/24 11:59 Neut # (Auto) 7.83 K/uL (1.40-6.50) H 08/18/24 11:59 Lymph # (Auto) 1.37 K/uL (1.20-3.40) 08/18/24 11:59 [place] # (Auto) 1.38 K/uL (0.11-0.59) H 08/18/24 11:59 Eos # (Auto) 1.11 K/uL (0.00-0.50) H 08/18/24 11:59 Baso # (Auto) 0.05 K/uL (0.00-0.20) 08/18/24 11:59 Immature Gran # (Auto) 0.06 K/uL (0.01-0.20) 08/18/24 11:59 Sodium 130 mmol/L (136-145) L 08/19/24 06:36 Potassium 4.1 mmol/L (3.5-5.1) 08/19/24 06:36 Chloride 99 mmol/L (98-107) 08/19/24 06:36 Carbon Dioxide 24 mmol/L (21-32) 08/19/24 06:36 Anion Gap 7 (3-11) 08/19/24 06:36 BUN 23 mg/dl (6-23) 08/19/24 06:36 Creatinine 1.10 mg/dl (0.6-1.4) 08/19/24 06:36 Est Cr Clr Drug Dosing 47.2 ml/min 08/19/24 06:36 Est GFR ( Amer) 73.6 ml/min 08/19/24 06:36 Est GFR (Non-Af Amer) 63.5 ml/min 08/19/24 06:36 BUN/Creatinine Ratio 20.9 (10-20) H 08/19/24 06:36 Glucose 123 mg/dl (70-99(Fasting)) H 08/19/24 06:36 POC Glucose 134 mg/dl (70-99) H 08/19/24 07:34 Calcium 7.8 mg/dl (8.6-10.3) L 08/19/24 06:36 Impressions Toe X-Ray 08/18/24 13:00 FL toe RT 2V CLINICAL HISTORY: RIGHT TOE AMP COMPARISON STUDY: None. FLUOROSCOPY TIME: 1 second. Ka, r: 0.06 mGy FLUOROSCOPIC IMAGES: 1 FINDINGS: Fluoroscopy was provided during right second toe amputation. There are no unexpected radiopaque bodies. There are no fractures. Previous right first toe amputation is incidentally noted. IMPRESSION: Fluoroscopy provided during right second toe amputation. ACT 112: Negative or not required by law. Electronically signed by: Jimenez Clinton M.D. 08/18/2024 3:03 PM
[2024-08-19 10:21] LABS: Hematocrit (blood only) 23.3 % (42.0-52.0); Hemoglobin 7.7 g/dl (14.0-18.0)
[2024-08-19] MEDS: DAPTOmycin 500 MG in SYRINGE 0 ML IV SCH (10:48)
--- NOTE | 2024-08-19 11:09 | Hospitalist Progress Note ---
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 Likely hold today in view of worsened anemia I spent a total of 40 minutes coordinating, documenting and providing care for this patient excluding time spent in performance of separately billed services Admission and Anticipated Discharge Date Admission Date: August 18, 2024 Subjective Patient seen and examined Reports no surgical site pain at this time Denied chest pain, SOB, dizziness Denied any other complaints Physical Exam Constitutional: + well hydrated; no acute distress Eyes: +pallor ENMT: external ear and nose normal, oropharynx normal Respiratory: normal respiratory effort, lungs clear to auscultation Cardiovascular: Rate/Rhythm: regular rate and regular rhythm Gastrointestinal (Abdomen): normal bowel sounds, soft, nontender, no hepatosplenomegaly Musculoskeletal: Left BKA with clean dressing Clean dressing over right foot surgical site Neurologic: PERRL, EOMI, accommodation nl, no face palsy, no dysarthria Psychiatric: A+Ox3, euthymic affect Results & Data Results & Data Vital Signs (Past 12 Hours) Vital Signs Temp Pulse Resp BP Pulse Ox O2 Del Method 08/19/24 08:04 37.3 C 80 15 92 Room Air 08/19/24 07:15 38.4 C H 83 16 130/60 91 Room Air 08/19/24 03:00 36.9 C 83 16 128/56 L 93 Room Air 08/18/24 23:16 37.3 C 87 14 148/61 H 95 Room Air Laboratory Results Abnormal lab results 08/18/24 08/18/24 08/19/24 Range/Units 14:44 16:26 06:36 WBC 11.12 H (4.8-10.8) K/ul RBC 2.55 L (4.70-6.10) M/uL Hgb 7.6 L (14.0-18.0) g/dl Hct 23.0 L (42.0-52.0) % RDW Std Deviation 47.7 H (36.4-46.3) fL MPV 8.7 L (9.4-12.4) fL Sodium 130 L (136-145) mmol/L BUN/Creatinine Ratio 20.9 H (10-20) Glucose 123 H (70-99(Fasting)) mg/dl POC Glucose 144 H 148 H (70-99) mg/dl Calcium 7.8 L (8.6-10.3) mg/dl Iron (35-175) mcg/dl Transferrin (200-360) mg/dl Ferritin (8-388) ng/ml Crossmatch 08/19/24 08/19/24 08/19/24 Range/Units 07:34 10:08 12:37 WBC (4.8-10.8) K/ul RBC (4.70-6.10) M/uL Hgb 7.7 L (14.0-18.0) g/dl Hct 23.3 L (42.0-52.0) % RDW Std Deviation (36.4-46.3) fL MPV (9.4-12.4) fL Sodium (136-145) mmol/L BUN/Creatinine Ratio (10-20) Glucose (70-99(Fasting)) mg/dl POC Glucose 134 H (70-99) mg/dl Calcium (8.6-10.3) mg/dl Iron < 10 L (35-175) mcg/dl Transferrin 110 L (200-360) mg/dl Ferritin 810.4 H (8-388) ng/ml Crossmatch See Detail (2) Post-operative infection Encounter type: initial encounter Postoperative infection type: deep incisional surgical site Qualified Code(s): T81.42XA - Infection following a procedure, deep incisional surgical site, initial encounter
[2024-08-19] MEDS: amLODIPine BESYLATE 5 MG TAB PO SCH (11:34)
[2024-08-19] MEDS: CHOLECALCIFEROL 25 MCG (1000 UNITS) TAB PO SCH (11:34)
[2024-08-19] MEDS: ACETAMINOPHEN 500 MG TAB PO PRN (11:34)
[2024-08-19] MEDS ORDERED: SODIUM CHLORIDE 0.9% 250 ML IV PRN (12:30)
[2024-08-19 12:58] LABS: Reticulocyte % 1.12 % (0.50-2.00); Reticulocytes # 0.03 10^6/uL (0.020-0.100)
[2024-08-19 13:17] LABS: Iron < 10 mcg/dl (35-175); Lactate Dehydrogenase 180 U/L (86-244); Transferrin 110 mg/dl (200-360)
[2024-08-19 13:33] LABS: Ferritin 810.4 ng/ml (8-388)
[2024-08-19 13:39] LABS: Folate (Folic Acid),Ser orPlas > 22.30 ng/ml (>5.38)
[2024-08-19 13:40] LABS: Vitamin B12 668 pg/ml (180-914)
[2024-08-19 15:25] LABS: Unsaturated Iron Binding Cap 154 mcg/dl (155-355)
[2024-08-20 06:19] LABS: Hematocrit (blood only) 28.1 % (42.0-52.0); Hemoglobin 9.5 g/dl (14.0-18.0); Mean Corpuscular Hemoglobin 29.8 pg (25.0-34.0); Mean Corpuscular Hgb Conc 33.8 g/dL (32.0-36.0); Mean Corpuscular Volume 88.1 fL (80.0-100.0); Mean Platelet Volume 8.7 fL (9.4-12.4); Platelet Count 358 K/uL (130-400); RDW Coefficient of Variation 14.6 % (11.5-14.5); RDW Standard Deviation 46.5 fL (36.4-46.3); Red Blood Count 3.19 M/uL (4.70-6.10); White Blood Count 11.33 K/ul (4.8-10.8)
[2024-08-20 06:35] LABS: BUN Creatinine Ratio 22.1 (10-20); Calcium 8.3 mg/dl (8.6-10.3); Creatinine Clr Calc Pharmacy 54.6 ml/min; Est GFR (African American) 87.9 ml/min; Est GFR (Non-African American) 75.8 ml/min; Potassium 3.9 mmol/L (3.5-5.1)
[2024-08-20] MEDS: LANTUS PER UNIT CHARGE SQ SCH (09:15)
--- NOTE | 2024-08-20 11:48 | Hospitalist Progress Note ---
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 Preop was 9.2 Acute on chronic anemia Unlikely blood loss from OR Possible dilutional Considering patient extensive cardiovascular disease, got 1 PRBC to get Hb>8 Hb is 9.5 today Anemia workup showed low iron level Started on iron tab. Toe culture growing Serratia. Already started on cipro by Surgeon S/p left BKA Postop infection of stump: Continue IV Dapto which was started last admission 07/28 Hx SIADH: Sodium 131, stable Monitor Hx CAD/CABG/PAD: Hx carotid stenosis/HTN: Follows with vascular surgery Takes Eliquis/Plavixcontinue both when okay with primary team Continue Toprol/amlodipine/Lipitor Hx DM1: Takes lispro and Lantus at home, glycemic consult placed 4 times daily BGM, continue to monitor Hx hypothyroidism: Continue levothyroxine Full code DVT prophylaxis: Defer to Surgeon PT/OT eval for possible rehab/SNF I spent a total of 35 minutes coordinating, documenting and providing care for this patient excluding time spent in performance of separately billed services Admission and Anticipated Discharge Date Admission Date: August 18, 2024 Subjective Patient seen and examined Reports no surgical site pain at this time No new complaints Reports he wants to go to rehab Physical Exam Constitutional: + well hydrated; no acute distress Eyes: PERRL, conjunctivae normal, anicteric sclerae ENMT: external ear and nose normal, oropharynx normal Respiratory: normal respiratory effort, lungs clear to auscultation Cardiovascular: Rate/Rhythm: regular rate and regular rhythm Gastrointestinal (Abdomen): normal bowel sounds, soft, nontender, no hepatosplenomegaly Musculoskeletal: Left BKA with clean dressing Clean dressing over right foot surgical site Neurologic: PERRL, EOMI, accommodation nl, no face palsy, no dysarthria Psychiatric: A+Ox3, euthymic affect Results & Data Results & Data Vital Signs (Past 12 Hours) Vital Signs Temp Pulse Resp BP Pulse Ox O2 Del Method 08/20/24 07:44 36.9 C 74 18 131/65 94 Room Air Laboratory Results Abnormal lab results 08/19/24 08/20/24 08/20/24 Range/Units 12:37 05:57 11:39 WBC 11.33 H (4.8-10.8) K/ul RBC 3.19 L (4.70-6.10) M/uL Hgb 9.5 L (14.0-18.0) g/dl Hct 28.1 L (42.0-52.0) % RDW Std Deviation 46.5 H (36.4-46.3) fL RDW Coeff of Swetha 14.6 H (11.5-14.5) % MPV 8.7 L (9.4-12.4) fL Sodium 131 L (136-145) mmol/L BUN/Creatinine Ratio 22.1 H (10-20) Glucose 100 H (70-99(Fasting)) mg/dl POC Glucose 198 H (70-99) mg/dl Calcium 8.3 L (8.6-10.3) mg/dl Crossmatch See Detail (2) Post-operative infection Encounter type: initial encounter Postoperative infection type: deep incisional surgical site Qualified Code(s): T81.42XA - Infection following a procedure, deep incisional surgical site, initial encounter
--- NOTE | 2024-08-20 12:30 | Orthopedic Progress Note ---
Date of Service August 20, 2024 Assessment & Plan (1) Diabetic foot ulcer: Plan: Findings discussed. Hemoglobin hematocrit improved status post transfusion. He is out of bed. No further fevers. They are interested in rehab or correction. Will put in a consultation. Betzaida dowell. The right second toe amputation has grown out Serratia marcescens. Spoke with pharmacy. I think an oral antibiotic like Cipro would be appropriate at this time given that the diseased tissue has been surgically excised without any residual issues. Admission and Anticipated Discharge Date Admission Date: August 18, 2024 Subjective Doing well. Feels better than yesterday. Received 1 unit of blood. Sitting in chair. Concerned about inability to take care of himself at home. Physical Exam Physical Exam: BKA dressing clean and dry. Left. Right foot dressing changed. No active bleeding. Minimal swelling. Some dried blood eschar around the margins. All flaps are viable. No purulent drainage. A new dressing is applied. Results & Data Vital Signs (Past 12 Hours) Vital Signs Temp Pulse Resp BP Pulse Ox O2 Del Method 08/20/24 07:44 36.9 C 74 18 131/65 94 Room Air Laboratory Results Laboratory Results WBC 11.33 K/ul (4.8-10.8) H 08/20/24 05:57 RBC 3.19 M/uL (4.70-6.10) L 08/20/24 05:57 Hgb 9.5 g/dl (14.0-18.0) L 08/20/24 05:57 Hct 28.1 % (42.0-52.0) L 08/20/24 05:57 MCV 88.1 fL (80.0-100.0) 08/20/24 05:57 MCH 29.8 pg (25.0-34.0) 08/20/24 05:57 MCHC 33.8 g/dL (32.0-36.0) 08/20/24 05:57 RDW Std Deviation 46.5 fL (36.4-46.3) H 08/20/24 05:57 RDW Coeff of Swetha 14.6 % (11.5-14.5) H 08/20/24 05:57 Plt Count 358 K/uL (130-400) 08/20/24 05:57 MPV 8.7 fL (9.4-12.4) L 08/20/24 05:57 Immature Gran % (Auto) 0.5 % 08/18/24 11:59 Neut % (Auto) 66.4 % 08/18/24 11:59 Lymph % (Auto) 11.6 % 08/18/24 11:59 [place] % (Auto) 11.7 % 08/18/24 11:59 Eos % (Auto) 9.4 % 08/18/24 11:59 Baso % (Auto) 0.4 % 08/18/24 11:59 Reticulocyte % (Auto) 1.12 % (0.50-2.00) 08/19/24 12:37 Neut # (Auto) 7.83 K/uL (1.40-6.50) H 08/18/24 11:59 Lymph # (Auto) 1.37 K/uL (1.20-3.40) 08/18/24 11:59 [place] # (Auto) 1.38 K/uL (0.11-0.59) H 08/18/24 11:59 Eos # (Auto) 1.11 K/uL (0.00-0.50) H 08/18/24 11:59 Baso # (Auto) 0.05 K/uL (0.00-0.20) 08/18/24 11:59 Reticulocyte # 0.030 10^6/uL (0.020-0.100) 08/19/24 12:37 Immature Gran # (Auto) 0.06 K/uL (0.01-0.20) 08/18/24 11:59 Sodium 131 mmol/L (136-145) L 08/20/24 05:57 Potassium 3.9 mmol/L (3.5-5.1) 08/20/24 05:57 Chloride 100 mmol/L (98-107) 08/20/24 05:57 Carbon Dioxide 24 mmol/L (21-32) 08/20/24 05:57 Anion Gap 7 (3-11) 08/20/24 05:57 BUN 21 mg/dl (6-23) 08/20/24 05:57 Creatinine 0.95 mg/dl (0.6-1.4) 08/20/24 05:57 Est Cr Clr Drug Dosing 54.6 ml/min 08/20/24 05:57 Est GFR ( Amer) 87.9 ml/min 08/20/24 05:57 Est GFR (Non-Af Amer) 75.8 ml/min 08/20/24 05:57 BUN/Creatinine Ratio 22.1 (10-20) H 08/20/24 05:57 Glucose 100 mg/dl (70-99(Fasting)) H 08/20/24 05:57 POC Glucose 198 mg/dl (70-99) H 08/20/24 11:39 Calcium 8.3 mg/dl (8.6-10.3) L 08/20/24 05:57 Iron < 10 mcg/dl (35-175) L 08/19/24 12:37 Unsaturated IBC 154 mcg/dl (155-355) L 08/19/24 12:37 Transferrin 110 mg/dl (200-360) L 08/19/24 12:37 Ferritin 810.4 ng/ml (8-388) H 08/19/24 12:37 Lactate Dehydrogenase 180 U/L (86-244) 08/19/24 12:37 Vitamin B12 668 pg/ml (180-914) 08/19/24 12:37 Folate > 22.30 ng/ml (>5.38) 08/19/24 12:37 Blood Type O Negative 08/19/24 12:37 Antibody Screen NEGATIVE 08/19/24 12:37 Crossmatch See Detail 08/19/24 12:37 Impressions Toe X-Ray 08/18/24 13:00 FL toe RT 2V CLINICAL HISTORY: RIGHT TOE AMP COMPARISON STUDY: None. FLUOROSCOPY TIME: 1 second. Ka, r: 0.06 mGy FLUOROSCOPIC IMAGES: 1 FINDINGS: Fluoroscopy was provided during right second toe amputation. There are no unexpected radiopaque bodies. There are no fractures. Previous right first toe amputation is incidentally noted. IMPRESSION: Fluoroscopy provided during right second toe amputation. ACT 112: Negative or not required by law. Electronically signed by: Jimenez Clinton M.D. 08/18/2024 3:03 PM
[2024-08-20] MEDS: FERROUS SULFATE 325 MG TAB PO SCH (12:42)
[2024-08-20] MEDS: CIPROFLOXACIN 500 MG TAB PO SCH (12:50)
--- NOTE | 2024-08-20 15:29 | Pharmacy Report ---
Pharmacy Glycemic Short Note 2 - Date of Service August 20, 2024 - Glycemic Short BSG Results (Last 24 hours): 08/20/24 08/20/24 08/20/24 05:57 07:41 11:39 Glucose 100 H POC Glucose 95 198 H OUTPATIENT ANTIDIABETIC REGIMEN: * Lantus 18 units SQ qAM * Lispro 3 units with break, 3-5 units with lunch, 4-10 units with dinner * A1c = 7.7% ASSESSMENT: * Tre is a 79 yo T1DM admitted with diabetic foot ulcer s/p right second toe amputation on 08/18 * Fasting BSG today is at goal but trending downward. Will decrease dose slightly this morning. Patient required ~14 units of basal insulin per day during past admission. * Post prandial BSG is acceptable today. Of note, patient did experience hyperglycemia yesterday evening. I suspect this was actually due to basal deficiency after he took a partial dose of Lantus prior to surgery on 08/18 AM. Because of this, will hold off on tightening Novolog today. PLAN FOR INPATIENT GLYCEMIC CONTROL: * Hold outpatient oral diabetes medications * Basal insulin * Lantus 15 units SQ qAM * Bolus insulin * NovoLog per scale ACHS or Q6hrs while NPO * Goal Range: Low 110 mg/dL - High 140 mg/dL * Correction Factor: 30 mg/dL/unit * Nutritional / Prandial insulin per carb ratio of 1 unit per 11 grams CHO consumed
[2024-08-20] MEDS: ASPIRIN 325 MG ECTAB PO SCH (21:33)
[2024-08-21] MEDS: CARBOHYDRATES FOR HYPOGLYCEMIA PO PRN (01:31)
[2024-08-21] MEDS: LANTUS PER UNIT CHARGE SQ SCH (09:03)
--- NOTE | 2024-08-21 09:58 | Orthopedic Progress Note ---
Date of Service August 21, 2024 Assessment & Plan (1) Status post amputation of toe of right foot: Plan: Patient is doing well this morning. Pain is controlled. Continue with pain control. Dressing was changed yesterday 08/20/2024. It was left in place today. Case management was consulted for rehab for mcc. Continue with physical therapy. Cultures grew Serratia Marcescens, pharmacy and Dr. Dominguez recommended oral ciprofloxacin. ASA 325 BID for DVT phx. Patient can weight-bear with the postop shoe for transfers otherwise should not be walking on right foot. Left BKA dressing was changed 08/19/2024 Admission and Anticipated Discharge Date Admission Date: August 20, 2024 Subjective Patient was seen and examined at bedside this morning. He says that he is overall doing well. Denies any fevers. Pain is controlled. He does not have any questions or concerns today. Physical Exam Physical Exam: Right lower extremity: Dressing is clean, dry and intact. Patient has sensation intact distally to light touch. He is able to wiggle his remaining toes. Skin is warm and pink. Left BKA Results & Data Vital Signs (Past 12 Hours) Vital Signs Temp Pulse Resp BP Pulse Ox O2 Del Method 08/21/24 07:13 36.9 C 81 18 155/72 H 90 Room Air Laboratory Results 08/21/24 08/21/24 08/21/24 Range/Units 07:11 01:46 01:27 POC Glucose 145 H 88 68 L* (70-99) mg/dl 08/20/24 08/20/24 08/20/24 Range/Units 20:10 16:48 11:39 POC Glucose 239 H 280 H 198 H (70-99) mg/dl Microbiology 08/18/24 Unknown Gram Stain - Final Toe,Right Second Aerobic and Anaerobic Culture - Preliminary Serratia marcescens
--- NOTE | 2024-08-21 12:37 | Hospitalist Progress Note ---
Date of Service August 21, 2024 Assessment & Plan (1) S/P BKA (below knee amputation) unilateral: (2) Post-operative infection: (3) PAD (peripheral artery disease): (4) Diabetic foot ulcer: (5) Type 1 diabetes mellitus with complications: (6) CAD (coronary atherosclerotic disease): (7) Dyslipidemia: (8) Hypertension: (9) Hypothyroidism: Plan S/p right second toe amputation 08/18: POD 3 Postop pain management/wound care per primary team Hb is 7.6 on POD 1. Preop was 9.2 Acute on chronic anemia Unlikely blood loss from OR Possible dilutional Considering patient extensive cardiovascular disease, got 1 PRBC to get Hb>8 Hb 9.5 on 08/20/24 Anemia workup showed low iron level <10 Started on iron tab. 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 Hx CAD/CABG/PAD: Hx carotid stenosis/HTN: Follows with vascular surgery Takes Eliquis/Plavixcontinue both when okay with primary team Continue Toprol/amlodipine/Lipitor Hx DM1: Takes lispro and Lantus at home, glycemic consult placed 4 times daily BGM, continue to monitor Hx hypothyroidism: Continue levothyroxine Full code DVT prophylaxis: Defer to Surgeon Awaiting placement I spent a total of 35 minutes coordinating, documenting and providing care for this patient excluding time spent in performance of separately billed services Admission and Anticipated Discharge Date Admission Date: August 20, 2024 Subjective Patient seen and examined No new complaints today Physical Exam Constitutional: + well hydrated; no acute distress Eyes: PERRL, conjunctivae normal, anicteric sclerae ENMT: external ear and nose normal, oropharynx normal Respiratory: normal respiratory effort, lungs clear to auscultation Cardiovascular: Rate/Rhythm: regular rate and regular rhythm Gastrointestinal (Abdomen): normal bowel sounds, soft, nontender, no hepatospl enomegaly Musculoskeletal: Left BKA with clean dressing Clean dressing over right foot surgical site Neurologic: PERRL, EOMI, accommodation nl, no face palsy, no dysarthria Psychiatric: A+Ox3, euthymic affect Results & Data Results & Data Vital Signs (Past 12 Hours) Vital Signs Temp Pulse Resp BP Pulse Ox O2 Del Method 08/21/24 07:13 36.9 C 81 18 155/72 H 90 Room Air Laboratory Results Abnormal lab results 08/20/24 08/21/24 08/21/24 Range/Units 20:10 01:27 07:11 POC Glucose 239 H 68 L* 145 H (70-99) mg/dl 08/21/24 08/21/24 Range/Units 11:39 16:32 POC Glucose 220 H 165 H (70-99) mg/dl (2) Post-operative infection Encounter type: initial encounter Postoperative infection type: deep incisional surgical site Qualified Code(s): T81.42XA - Infection following a procedure, deep incisional surgical site, initial encounter
--- NOTE | 2024-08-21 15:03 | Pharmacy Report ---
Pharmacy Glycemic Short Note 2 - Date of Service August 21, 2024 - Glycemic Short BSG Results (Last 24 hours): 08/20/24 08/20/24 08/21/24 16:48 20:10 01:27 POC Glucose 280 H 239 H 68 L* 08/21/24 08/21/24 08/21/24 01:46 07:11 11:39 POC Glucose 88 145 H 220 H OUTPATIENT ANTIDIABETIC REGIMEN: * Lantus 18 units SQ qAM * Lispro 3 units with break, 3-5 units with lunch, 4-10 units with dinner * A1c = 7.7% ASSESSMENT: 08/21 * Patient requesting that his lantus be increased to his home dose of 18 units despite hypoglycemia seen this morning. Since this low BSG is likely not due to the Lantus (last dose was 08/20 AM and BSG last evening was 239mg/dL), it was increased from 15 units to 18 units this morning. * The bedtime bolus regimen was changed in order to help prevent low BSG in the morning. The goal range was increased to 140-160 and the CF was loosened only for HS. 08/20 * Tre is a 79 yo T1DM admitted with diabetic foot ulcer s/p right second toe amputation on 08/18 * Fasting BSG today is at goal but trending downward. Will decrease dose slightly this morning. Patient required ~14 units of basal insulin per day during past admission. * Post prandial BSG is acceptable today. Of note, patient did experience hyperglycemia yesterday evening. I suspect this was actually due to basal deficiency after he took a partial dose of Lantus prior to surgery on 08/18 AM. Because of this, will hold off on tightening Novolog today. PLAN FOR INPATIENT GLYCEMIC CONTROL: * Hold outpatient diabetes medications * Basal insulin * Lantus 18 units SQ qAM * Bolus insulin * NovoLog per scale ACHS or Q6hrs while NPO * Goal Range: Low 110 mg/dL - High 140 mg/dL before meals; and Low 140mg/dL - High 180mg/dL at bedtime * Correction Factor: 30 mg/dL/unit before meals; and 45 mg/dL at bedtime. * Nutritional / Prandial insulin per carb ratio of 1 unit per 11 grams CHO consumed
[2024-08-21] MEDS: INSULIN ASPART PER UNIT CHARGE SC SCH ×2 (17:18→21:05)
--- NOTE | 2024-08-22 09:28 | Orthopedic Progress Note ---
<Statement entered by Marquis Dominguez MD - 08/22/24 15:43> Patient seen and evaluated. He did have a temperature over 30 degrees in the past 24 hours. Pathology from the right second toe is pending. It did grew out Serratia marcescens. He has been started on ciprofloxacin because of this. Discussed with patient. He has been seen by wound care. Betzaida boot was orde red but not in place. I applied it. Right foot. He has been afebrile. We are checking repeat labs today CBC sed rate C-reactive protein. Plan is for [facility] tomorrow. He will continue on his p.o. Cipro x 2 to 3 weeks. He will continue his IV daptomycin until September 05. The left BKA stump is benign there is no swelling erythema or drainage. The previous areas of delayed wound healing anterior and anterolateral are improving. The anterolateral area appears to be completely closed. The anterior area has a 7 x 12 mm firmly adherent eschar. The anterolateral small eschar is debrided. Remaining sutures are removed except for the more anterior area. No depth. Redressed. Right second toe evaluated. The heel is doing well. Reepithelializing. No areas of necrosis. The second toe shows marginal eschar good capillary refill some mild erythema consistent with healing. Minimal swelling. He will partial weight-bear on his foot for transfers only. Aspirin for DVT pro phylaxis. He will follow-up with me next week as scheduled after his transfer. Date of Service August 22, 2024 Assessment & Plan (1) Status post amputation of toe of right foot: Plan: Continue with pain control. Dressing will be changed by Dr. Dominguez later today. Patient to be discharged to [facility] tomorrow 08/23/2024. Has wound care appointment scheduled for 08/25/2024. Per patient, he had seen infectious disease prior to admission who made recommendations. Cultures grew Serratia Marcescens, pharmacy and Dr. Dominguez recommended oral ciprofloxacin. Also receiving Daptomycin through PICC line. ASA 325 BID for DVT prophylaxis. Patient can weight-bear with the postop shoe for transfers otherwise should not be walking on right foot. Left BKA dressing was changed 08/19/2024 Admission and Anticipated Discharge Date Admission Date: August 20, 2024 Subjective Patient seen in this room this morning. He is doing well, tolerating antibiotics. He is elevating and protecting his right heel. He denies any chest pain, shortness of breath, fever, chills, nausea, vomiting, or significant pain. He will be discharged to [facility] tomorrow. Review of Systems Review of Systems: All systems reviewed & are unremarkable except as noted in Subjective Physical Exam Constitutional: Resting comfortably sitting upright in bed, in no distress Musculoskeletal: Left lower extremity: BKA with dressing over the stump. No tenderness over the stump. Dressing is dry. Right lower extremity: Dressing in place over the right foot/second toe. Dressing is dry. Minimal tenderness in the posterior heel. Ankle plantarflexion dorsiflexion 5/5 Neurologic: No sensory deficits to light touch in bilateral lower extremities. Results & Data Vital Signs (Past 12 Hours) Vital Signs Temp Pulse Resp BP Pulse Ox O2 Del Method 08/22/24 07:18 98.1 F 67 18 138/56 L 91 Room Air 08/21/24 22:00 98.5 F
[2024-08-22] MEDS ORDERED: POLYETHYLENE (MIRALAX) 17 GM PACK PO PRN (12:26)
[2024-08-22] MEDS: SENNA 8.6 MG TAB PO SCH (12:50)
--- NOTE | 2024-08-22 12:59 | Hospitalist Progress Note ---
Date of Service August 22, 2024 Assessment & Plan (1) S/P BKA (below knee amputation) unilateral: (2) Post-operative infection: (3) PAD (peripheral artery disease): (4) Diabetic foot ulcer: (5) Type 1 diabetes mellitus with complications: (6) CAD (coronary atherosclerotic disease): (7) Dyslipidemia: (8) Hypertension: (9) Hypothyroidism: Plan S/p right second toe amputation 08/18: POD 4 Postop pain management/wound care per primary team Hb is 7.6 on POD 1. Preop was 9.2 Acute on chronic anemia Unlikely blood loss from OR Possible dilutional Considering patient extensive cardiovascular disease, got 1 PRBC to get Hb>8 Hb 11.5 today Anemia workup showed low iron level <10 Started on iron tab. Toe culture grew Serratia and another GNR Currently on cipro by Surgeon Per surgery, he can weight-bear with the postop shoe for transfers otherwise should not be walking on right foot. Senokot scheduled daily per patient's preference Miralax prn constipation Did have fever yesterday and low grade temp today WBC is increased to 15K. Though this could be reactive in view of recent surg. 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 Hx CAD/CABG/PAD: Hx carotid stenosis/HTN: Follows with vascular surgery Takes Eliquis/Plavixcontinue both when okay with primary team Continue Toprol/amlodipine/Lipitor Hx DM1: Takes lispro and Lantus at home, glycemic consult placed 4 times daily BGM, continue to monitor Hx hypothyroidism: Continue levothyroxine Full code DVT prophylaxis: Defer to Surgeon Awaiting placement I spent a total of 35 minutes coordinating, documenting and providing care for this patient excluding time spent in performance of separately billed services Admission and Anticipated Discharge Date Admission Date: August 20, 2024 Subjective Patient seen and examined Reports constipation Denied surgical site pain No new complaints today Physical Exam Constitutional: + well hydrated; no acute distress Eyes: PERRL, conjunctivae normal, anicteric sclerae ENMT: external ear and nose normal, oropharynx normal Respiratory: normal respiratory effort, lungs clear to auscultation Cardiovascular: Rate/Rhythm: regular rate and regular rhythm Gastrointestinal (Abdomen): normal bowel sounds, soft, nontender, no hepatosplenomegaly Musculoskeletal: Left BKA with clean dressing Clean dressing over right foot surgical site Neurologic: PERRL, EOMI, accommodation nl, no face palsy, no dysarthria Psychiatric: A+Ox3, euthymic affect Results & Data Results & Data Vital Signs (Past 12 Hours) Vital Signs Temp Pulse Resp BP Pulse Ox O2 Del Method 08/22/24 09:15 75 18 150/71 H 92 Room Air 08/22/24 07:18 36.7 C 67 18 138/56 L 91 Room Air Laboratory Results Abnormal lab results 08/19/24 08/21/24 08/21/24 Range/Units 12:37 16:32 20:28 Haptoglobin 439 H (43-212) mg/dL POC Glucose 165 H 177 H (70-99) mg/dl 08/22/24 08/22/24 Range/Units 07:17 11:24 Haptoglobin (43-212) mg/dL POC Glucose 220 H 204 H (70-99) mg/dl (2) Post-operative infection Encounter type: initial encounter Postoperative infection type: deep incisional surgical site Qualified Code(s): T81.42XA - Infection following a procedure, deep incisional surgical site, initial encounter
[2024-08-22 15:00] LABS: Basophils # (auto) 0.05 K/uL (0.00-0.20); Basophils % (auto) 0.3 %; Eosinophils # (auto) 1.26 K/uL (0.00-0.50); Hematocrit (blood only) 34.1 % (42.0-52.0); Hemoglobin 11.5 g/dl (14.0-18.0); Immature Granulocytes # (auto) 0.09 K/uL (0.01-0.20); Immature Granulocytes % (auto) 0.6 %; Lymphocytes % (auto) 6.4 %; Mean Corpuscular Hemoglobin 29.6 pg (25.0-34.0); Mean Corpuscular Hgb Conc 33.7 g/dL (32.0-36.0); Mean Corpuscular Volume 87.9 fL (80.0-100.0); Mean Platelet Volume 8.7 fL (9.4-12.4); Monocytes % (auto) 6.4 %; Neutrophils % (auto) 78.3 %; Platelet Count 507 K/uL (130-400); RDW Coefficient of Variation 14.3 % (11.5-14.5); RDW Standard Deviation 45.9 fL (36.4-46.3); Red Blood Count 3.88 M/uL (4.70-6.10)
--- NOTE | 2024-08-22 16:50 | XRay Report ---
XR chest 1V portable CLINICAL HISTORY: Infection workup TECHNIQUE: Single frontal radiograph of the chest was obtained. Comparison: Comparison is made to chest radiograph 07/06/2024 FINDINGS: Median sternotomy wires are unchanged. Left PICC terminates in the mid SVC. The cardiomediastinal natacha houette is normal. Previously noted left airspace opacities have resolved. There are now airspace opa cities in the right midlung. No evidence of pleural effusion or pneumothorax. IMPRESSION: Airspace opacity in the right midlung is compatible with aspiration/pneumonia. ACT 112: Negative or not required by law. Electronically signed by: Robinson Rosales M.D. 08/22/2024 4:49 PM
[2024-08-22 17:38] LABS: Appearance Urine Clear (Clear); Bacteria Urine Automated None Seen (None Seen); Bilirubin Urine Negative (Negative); Blood Urine Negative (Negative); Cast Urine Automated 0-2 /lpf (0-2); Color Urine Yellow; Epithelial Cell Urine Auto 0-2 /hpf (0-2); Glucose Urine UA Negative (Negative); Ketones Urine Negative (Negative); Leukocyte Esterase Urine Negative (Negative); Nitrite Urine Negative (Negative); Protein Urine 2+ (Negative); RBC Urine Automated 0-2 /hpf (0-2); Specific Gravity Urine 1.021 (1.000-1.030); Urobilinogen Urine Negative (Negative); WBC Urine Automated 0-5 /hpf (0-5); pH Urine 5.5 (4.5-7.5)
[2024-08-23 07:17] LABS: Hematocrit (blood only) 30.4 % (42.0-52.0); Hemoglobin 10.4 g/dl (14.0-18.0); Mean Corpuscular Hgb Conc 34.2 g/dL (32.0-36.0); Mean Corpuscular Volume 87.6 fL (80.0-100.0); Mean Platelet Volume 8.7 fL (9.4-12.4); Platelet Count 436 K/uL (130-400); RDW Coefficient of Variation 14.1 % (11.5-14.5); RDW Standard Deviation 45.1 fL (36.4-46.3); Red Blood Count 3.47 M/uL (4.70-6.10)
[2024-08-23 07:28] LABS: C Reactive Protein 22.22 mg/dl (0-0.5); Calcium 8.5 mg/dl (8.6-10.3); Creatinine Clr Calc Pharmacy 51.9 ml/min; Est GFR (African American) 82.6 ml/min; Est GFR (Non-African American) 71.3 ml/min; Potassium 3.9 mmol/L (3.5-5.1)
--- NOTE | 2024-08-23 10:42 | Orthopedic Progress Note ---
Date of Service August 23, 2024 Assessment & Plan (1) Status post amputation of toe of right foot: Plan: White blood cell count and inflammatory markers elevated. Could be explainable by blood transfusion and recent toe surgery. However concern regarding findings. UA looks clean. Left BKA and right foot look benign. Spoke with hospitalist yesterday. Spoke with patient today. Reconsult ID for their advice. Pharmacy is also evaluating. He has grown out a second organism not sensitive to Cipro from the right second toe culture. May need to delay transfer to [facility]. Admission and Anticipated Discharge Date Admission Date: August 20, 2024
--- NOTE | 2024-08-23 11:28 | Hospitalist Progress Note ---
Date of Service August 23, 2024 Assessment & Plan (1) S/P BKA (below knee amputation) unilateral: (2) Post-operative infection: (3) PAD (peripheral artery disease): (4) Diabetic foot ulcer: (5) Type 1 diabetes mellitus with complications: (6) CAD (coronary atherosclerotic disease): (7) Dyslipidemia: (8) Hypertension: (9) Hypothyroidism: Plan Patient is a 79-year-old male with a past medical history of left BKA on 07/04/2024, SIADH, anemia, CAD with Hx of CABG, PAD, carotid stenosis, HTN, DM type I, CKD 3, hypothyroidism who is s/p R second toe amputation on 08/18 with orthopedic surgery. S/p right second toe amputation 08/18 POD 5 Postop pain management/wound care per primary team Hgb was 7.6 on POD 1. Preop was 9.2 Acute on chronic anemia Unlikely blood loss from OR Possible dilutional Considering patient's extensive Hx of cardiovascular disease, got 1 PRBC to get Hgb>8. Hgb currently >8 Anemia workup showed low iron level <10, on iron supplements Intraop Toe culture from 08/18 grew Serratia, Stenotrophomonas, ngoc Blood Cx x2 sets pending from 08/22 with noted increasing leukocytosis, fever and elevated crp. Procal negative Was on IV daptomycin and po cipro per orthopedics. ID consulted, appreciate further recs -Discussion with [facility] ID Dr Valdivia on 08/23/24. Advised the following: -discontinue IV daptomycin due to concern for eosinophilic pneumonia -start Linezolid for 2 weeks, and Rocephin for aspiration pneumonia noted on chest xray (per ID no need for Flagyl as rocephin covers mouth anaerobes) and serratia noted on toe cx -consider addition of fluconazole for ngoc noted -can further define chest pathology with CT chest, ordered Follow AM CBC Per orthopedic surgery, he can weight-bear with the postop shoe for transfers otherwise should not be walking on right foot. Pain control with tylenol and IV narcotics. Monitor bowel function Senokot scheduled daily per patient's preference Miralax prn constipation Continue to monitor S/p left BKA Postop infection of stump: Was on IV Dapto which was started last admission 07/28 Discontinued as above on 08/23 Per ID continue with IV Linezolid and Rocephin as noted above Hx SIADH: Stable Monitor Hx CAD/CABG/PAD: Hx carotid stenosis/HTN: Follows with vascular surgery Takes Eliquis/Plavixcontinue both when okay with primary team Continue Toprol/amlodipine/Lipitor Hx DM1: Takes lispro and Lantus at home, glycemic consult placed 4 times daily BGM, continue to monitor Hx hypothyroidism: Continue levothyroxine Full code DVT prophylaxis: Defer to Surgeon Dispo: placement once medically stable Admission and Anticipated Discharge Date Admission Date: August 20, 2024 Subjective Patient was seen in the a.m., sitting up in bed on his computer. States that he feels "shitty". Expresses disappointment with not being able to be discharged today. Denies any fevers chills or night sweats. States pain is well-controlled. States he is eating and drinking without issue. Frequent bowel movements. Case discussed with ID specialist from [facility] Dr Valdivia Review of Systems Review of Systems: All systems reviewed & are unremarkable except as noted in Subjective Physical Exam Physical Exam: General: Alert, oriented. No acute distress Psych: Appropriate mood and affect HEENT: NC/AT CV: RRR Resp: Breath sounds clear bilaterally, no increased effort of breathing Abdomen: Soft, nontender Extremities: LLE with noted bandaged stump, RLE with bandaged toes Results & Data Results & Data Vital Signs (Past 12 Hours) Vital Signs Temp Pulse Resp BP Pulse Ox O2 Del Method 08/23/24 07:40 36.8 C 74 18 123/63 94 Room Air 08/23/24 01:47 36.4 C L 61 16 130/64 94 Room Air Diagnostic Findings Toe X-Ray 08/18/24 13:00 FL toe RT 2V CLINICAL HISTORY: RIGHT TOE AMP COMPARISON STUDY: None. FLUOROSCOPY TIME: 1 second. Ka, r: 0.06 mGy FLUOROSCOPIC IMAGES: 1 FINDINGS: Fluoroscopy was provided during right second toe amputation. There are no unexpected radiopaque bodies. There are no fractures. Previous right first toe amputation is incidentally noted. IMPRESSION: Fluoroscopy provided during right second toe amputation. ACT 112: Negative or not required by law. Electronically signed by: Jimenez Clinton M.D. 08/18/2024 3:03 PM Chest X-Ray 08/22/24 16:01 XR chest 1V portable CLINICAL HISTORY: Infection workup TECHNIQUE: Single frontal radiograph of the chest was obtained. Comparison: Comparison is made to chest radiograph 07/06/2024 FINDINGS: Median sternotomy wires are unchanged. Left PICC terminates in the mid SVC. The cardiomediastinal silhouette is normal. Previously noted left airspace opacities have resolved. There are now airspace opacities in the right midlung. No evidence of pleural effusion or pneumothorax. IMPRESSION: Airspace opacity in the right midlung is compatible with aspiration/pneumonia. ACT 112: Negative or not required by law. Electronically signed by: Robinson Rosales M.D. 08/22/2024 4:49 PM (2) Post-operative infection Encounter type: initial encounter Postoperative infection type: deep incisional surgical site Qualified Code(s): T81.42XA - Infection following a procedure, deep incisional surgical site, initial encounter
[2024-08-23] MEDS: cefTRIAXone SODIUM 2,000 MG/50 ML BAG IV SCH (12:45)
[2024-08-23] MEDS ORDERED: FLUCONAZOLE 200 MG/100 ML BAG IV SCH (13:00)
--- NOTE | 2024-08-23 13:19 | Infectious Disease Consult ---
Date of Consultation August 23, 2024 Assessment & Plan (1) Status post amputation of toe of right foot: (2) Postoperative fever: (3) Peripheral eosinophilia: Plan ID Problem List: 1. 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 Fevers, leukocytosis 4. Peripheral eosinophilia 5. Concern for daptomycin-related drug reaction including possible eosinophil ic pneumonia 6. Possible antibiotic allergies: Augmentin (vomiting), Bactrim (vomiting) Impression: Tre Gonzalez is a 79-year-old man with history of L BKA on 07/04/2024 c/b stump infection s/p I&D with L BKA revision on 07/26/24, history of R great toe partial amputation, SIADH, , CAD s/p CABG, PAD, T1DM, CKD3, HTN, who presents to [facility] on 08/18/24 with R 2nd toe wound with exposed bone, now s/p R 2nd toe amputation on 08/18/24. Post-operative course c/b fevers and leukocytosis. ID is consulted for R 2nd toe osteomyelitis, and post-op fevers and leukocytosis. The patient recently had L BKA on 07/04/2024. He was recently hospitalized 07/25 - 07/28/24 for post-operative stump infection. He underwent I&D and L BKA revision on 07/26/24, OR Cx grew MRSA. He was seen by ID, who noted that there was not definitive evidence of stump osteomyelitis (no OR pathology was sent), however per orthopedic surgery was preferring a longer (tentative 6-week course) of abx out of caution. He was placed on IV daptomycin (8 mg/kg) for an intended 6-week course (07/2609/06/24). He was reportedly seen by [facility] (Dr. Dumont) as an outpatient, who recommended to continue the full 6-week course of IV abx (EOT 09/06/24). He also has a chronic wound at the tip of his R 2nd toe with exposed bone and c/f osteomyelitis. He was seen by Dr. Dominguez who recommended toe amputation. Now s/p R 2nd toe amputation on 08/18/24, Cx + Serratia marcescens, Stenotrophomonas maltophilia, and Jailyn albicans/dubliniensis. His IV daptomycin was continued. He was started on ciprofloxacin on 08/20. I discussed with Dr. Dominguez on 08/23/24. Intraoperatively, the site of amputation was very proximal to the infected portion of the toe. Therefore, very low suspicion for any residual osteomyelitis, and Dr. Dominguez recommends to treat just for any residual SSTI. Also per Dr. Dominguez, the pts L BKA site appears to be healing well. His hospital course has been c/b fevers T38.4 on 08/19, T38.5 on 08/21, T38.2 on 08/23. His WBC count has been elevated, 15.7 on 08/22 (eos 8% and AEC 1260). On 08/18, he also had elevated peripheral eosinophilia (WBC 11.8, eos 9.4%, and AEC 1110). SpO2 ranging 90-95% on RA; a CXR from 08/22 showing R midlung airspace opacity with question of possible aspiration pna. At the time of evaluation, the patient feels frustrated that he is remaining in the hospital. He denies pain, rash, diarrhea, or other symptoms. No recent travel or other exposures; no travel internationally since 2006 (only been to countries including [place], [place], [place], [place]; no travel to [place] or [place]). Has two 13yo indoor cats; no other wild/farm animal exposures. No raw meat/fish or other ingestions. Discussion Pt with R 2nd toe osteomyelitis now s/p amputation per Dr. Dominguez, the amputation was quite proximal to the exposed bone in the distal toe and there is very low suspicion for any residual bony infection. Per Dr. Dominguez, the pts L BKA site (for which pt had recent I&D for MRSA stump infection and was on IV daptomycin prior to admission) looks good and the wound is healing well. His OR wound Cx from 08/18 grew Serratia marcescens, Stenotrophomonas maltophilia, and Jailyn albicans/dubliniensis which were reported to be from the distally amputated site. It is likely that the Jailyn and Stenotrophomonas were both wound colonizers and underwent the majority of source control in the OR. Pt had been on ciprofloxacin for the Serratia. Note QTc of 482 on 08/23/24 (after having been on ciprofloxacin since 08/20). Reasonable to continue coverage for possible residual Serratia SSTI for a ~2 week course post-OR. Would also continue MRSA coverage to complete a 6-week course. Post-operatively, he has had multiple fevers and a rising leukocytosis, accompanied by a peripheral eosinophilia. No rashes, diarrhea, or other localizing symptoms. He has had mild hypoxemia (Spo2 90-95% on RA on 08/23) with 08/22 CXR showing a R midlung opacity with c/f aspiration pna; no coughing or shortness of breath. He otherwise feels well and without other localizing s/sx. Wonder whether pt may have a drug reaction to daptomycin (that explains the fevers/leukocytosis) including possible daptomycin-induced eosinophilic pneumonia, especially given that pt has been on daptomycin for ~4 weeks. For now, out of caution, will change daptomycin to linezolid (especially per prior ID consult without overt evidence of bony infection, and per surgery his L BKA site appears to be doing very well) to continue MRSA coverage for his L BKA infection to complete a 6-week course. If this is indeed a daptomycin reaction, symptoms may improve with cessation of daptomycin alone, but if they persist may consider a trial of steroids. Can also change from ciprofloxacin to ceftriaxone for now to cover for both possible aspiration pna and Serratia SSTI of the R foot. Will follow 08/[address] chest. Will continue to monitor fever curve and WBC count. Recommendations: - Change daptomycin to linezolid 600 mg PO BID to complete a 6-week course (EOT 09/06/24) for MRSA L BKA infection - Change to ceftriaxone 2g IV q24h to cover possible aspiration pna and Serratia SSTI of the R foot - If fevers/leukocytosis are indeed a from daptomycin reaction, symptoms may improve with cessation of daptomycin alone, but if they persist may consider a trial of steroids. - Holding off on additional abx for Jailyn or Stenotrophomonas at this time given likelihood of wound colonizers (removed by amputation) - Continue to monitor fever curve, CBC w/ diff (including eosinophil count) - F/u 08/23 BCx - F/u CT chest - Weekly lab monitoring while on IV antibiotics: CBC w/ diff, CMP, ESR, CRP, CK for daptomycin (consider twice weekly if on a statin). Ensure that labs are faxed to PCP and ID clinic (if applicable) - Ensure close follow-up with ID (pt recently established with outpatient [facility]), orthopedic surgery, and primary care ID will continue to follow. Karen Valdivia MD, S Infectious Diseases [facility]/ID Connect ID Connect direct line: [phone] Consultation Information Consultation was provided via telemedicine using two-way real-time interactive telecommunication between the patient and the telemedicine provider. For the duration of the visit, the provider was performing the assessment from a different facility than the patient. This includesuse of bluetooth stethoscope forauscultationperformed by the telepresenter that the telemedicine provider can hear if described in the physical exam. Disease Control Inspector contact information: Please call ID Connect Call Center [phone]. (Phone Number For Physician Use Only) After establishing a telemedicine visit, patient was: Patient was verified with two unique identifiers, Patient/authorized rep acknowledged consent and understanding and Gave permission to continue telehealth session Time Spent with Patient: Initial => 75 min History of Present Illness Reason for Consultation: R 2nd toe osteomyelitis, and post-op fevers and leukocytosis. Attending Physician: Marquis Dominguez MD History of Present Illness Tre Gonzalez is a 79-year-old man with history of L BKA on 07/04/2024 c/b stump infection s/p I&D with L BKA revision on 07/26/24, history of R great toe partial amputation, SIADH, , CAD s/p CABG, PAD, T1DM, CKD3, HTN, who presents to [facility] on 08/18/24 with R 2nd toe wound with exposed bone, now s/p R 2nd toe amputation on 08/18/24. Post-operative course c/b fevers and leukocytosis. ID is consulted for R 2nd toe osteomyelitis, and post-op fevers and leukocytosis. The patient recently had L BKA on 07/04/2024. He was recently hospitalized 07/25 - 07/28/24 for post-operative stump infection. He underwent I&D and L BKA revision on 07/26/24, OR Cx grew MRSA. He was seen by ID, who noted that there was not definitive evidence of stump osteomyelitis (no OR pathology was sent), however per orthopedic surgery was preferring a longer (tentative 6-week course) of abx out of caution. He was placed on IV daptomycin (8 mg/kg) for an intended 6-week course (07/2609/06/24). He was reportedly seen by [facility] infectious diseases (Dr. Dumont) as an outpatient, who recommended to continue the full 6-week course of IV abx (EOT 09/06/24). He also has a chronic wound at the tip of his R 2nd toe with exposed bone and c/f osteomyelitis. He was seen by Dr. Dominguez who recommended toe amputation. Now s/p R 2nd toe amputation on 08/18/24, Cx + Serratia marcescens, Stenotrophomonas maltophilia, and Jailyn albicans/dubliniensis. His IV daptomycin was continued. He was started on ciprofloxacin on 08/20. I discussed with Dr. Dominguez on 08/23/24. Intraoperatively, the site of amputation was very proximal to the infected portion of the toe. Therefore, very low suspicion for any residual osteomyelitis, and Dr. Dominguez recommends to treat just for any residual SSTI. Also per Dr. Dominguez, the pts L BKA site appears to be healing well. His hospital course has been c/b fevers T38.4 on 08/19, T38.5 on 08/21, T38.2 on 08/23. His WBC count has been elevated, 15.7 on 08/22 (eos 8% and AEC 1260). On 08/18, he also had elevated peripheral eosinophilia (WBC 11.8, eos 9.4%, and AEC 1110). SpO2 ranging 90-95% on RA; a CXR from 08/22 showing R midlung airspace opacity with question of possible aspiration pna. At the time of evaluation, the patient feels frustrated that he is remaining in the hospital. He denies pain, rash, diarrhea, or other symptoms. No recent travel or other exposures; no travel internationally since 2006 (only been to countries including [place], [place], [place], [place]; no travel to [place] or [place]). Has two 13yo indoor cats; no other wild/farm animal exposures. No raw meat/fish or other ingestions. Allergies Allergy/AdvReac Type Severity Reaction Status Date / Time tramadol Allergy Severe horrible Verified 08/18/24 11:50 experience>muscle stiffness, low bs amoxicillin [From Augmentin] AdvReac Severe Vomiting Verified 08/18/24 11:50 clavulanic acid AdvReac Severe Vomiting Verified 08/18/24 11:50 [From Augmentin] codeine AdvReac Severe Vomiting Verified 08/18/24 11:50 sulfamethoxazole AdvReac Severe Vomiting Verified 08/18/24 11:50 [From Bactrim] trimethoprim [From Bactrim] AdvReac Severe Vomiting Verified 08/18/24 11:50 Home Medications Medication Instructions Recorded Confirmed Type atorvastatin 40 mg tablet (Lipitor) 40 mg PO 1700 08/24/19 08/18/24 History cholecalciferol (vitamin D3) 50 2,000 units PO 1200 #90 caps 08/24/19 08/18/24 History mcg (2,000 unit) capsule coenzyme Q10 100 mg capsule 100 mg PO QPM 08/24/19 08/18/24 History levothyroxine 50 mcg tablet 50 mcg PO QAM #90 tabs 08/24/19 08/18/24 History znaeotpa-kecnitwd-sxxls acid 400 1 tab PO DAILY 08/24/19 08/18/24 History mcg-vit K 20 mcg-lycop 300 mcg tablet (One-A-Day Men's Multivitamin) glucagon (human recombinant) 1 mg 1 mg subcut Q20M PRN hypoglycemia 09/15/19 08/18/24 Rx solution for injection (Glucagon #1 ea Emergency Kit) alendronate 35 mg tablet 35 mg PO WK 05/22/24 08/18/24 History cetirizine 10 mg tablet (Allergy 10 mg PO QPM 05/22/24 08/18/24 History Relief (cetirizine)) insulin glargine 100 unit/mL 18 unit subcut QAM 05/22/24 08/18/24 History subcutaneous solution (Lantus U-100 Insulin) insulin lispro 100 unit/mL See Rx Instructions subcut .COMPLEX 05/22/24 08/18/24 History subcutaneous pen (Humalog KwikPen (U-100) Insulin) timolol 0.25 % eye drops 1 drp ophthalmic (eye) BID 05/22/24 08/18/24 History apixaban 5 mg tablet (Eliquis) 5 mg PO BID #60 tabs 06/06/24 08/18/24 Rx brimonidine 0.1 % eye drops 1 drp ophthalmic (eye) BID 06/27/24 08/18/24 History (Alphagan P) amlodipine 2.5 mg tablet 2.5 mg PO 1200 06/29/24 08/18/24 History clopidogrel 75 mg tablet 75 mg PO QPM 06/29/24 08/18/24 History metoprolol succinate 50 mg 50 mg PO QAM 06/29/24 08/18/24 History tablet,extended release 24 hr acetaminophen 500 mg tablet 1,000 mg (2 x 500 mg) PO Q8H PRN 07/07/24 08/18/24 Rx (Tylenol Extra Strength) pain #30 tabs docusate sodium 100 mg capsule 100 mg PO BID PRN Constipation 08/11/24 08/18/24 History daptomycin 500 mg intravenous 500 mg IV DAILY 08/17/24 08/18/24 History solution Patient History Medical History (Updated 08/23/24 @ 13:32 by Karen Valdivia MD) MRSA (methicillin resistant Staphylococcus aureus) Neuropathy Anemia pt given 1 unit PRBCs during 07/25-07/28/24 hospital admission Mitral regurgitation mild-mod per 03/2024 ECHO Diabetic foot ulcers current: necrosis R 2nd toe and R heel would; following with wound care. 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; Discharged on DOAC (DOAC D/C at 08/11/24 vascular visit; pt to replace with [id number] daily) Chronic kidney disease stage 3 Proliferative diabetic retinopathy Osteopenia CAD (coronary artery disease) Amputation of toe of right foot partial big toe amputation Ashlie thyroiditis PVD (peripheral vascular disease) Type 1 diabetes Hyperlipidemia Hypertension Hypothyroidism Surgical History (Updated 08/21/24 @ 09:56 by Fadumo Hancock PA-C) Hx of left BKA 07/04/24 S/P PICC central line placement History of amputation (07/26/24) I&D, left bka revision: LMA#4 iGel; pt remains on IV abx and following with wound care History of colonoscopy S/P eye surgery retinopexy bilateral laser surgery History of cataract surgery bilateral History of cardiac cath (09/2003) at [facility]. no stents Hx of CABG (10/11/03) CABG x 4 [facility] Family History Father Gout Other No family history of adverse response to anesthesia Social History Smoking Status: Never smoker Second Hand Exposure: No; Do You Dip or Chew Tobacco: No; Hx Alcohol Use: No Hx Substance Use: No Preferred Language: Lao Communication Ability: Effective Chemist Organic Required: No Beliefs That Will Affect Care: None Current Living Situation: Spouse Feels Safe at Home: Yes Safety Concerns: Feels Safe At This Time Assistive Devices: Slide Board, Walker and Wheelchair Review of System As per HPI Physical Exam Physical Exam: Exam obtained with aid of in-person telepresenter. General: Well-appearing, no acute distress HEENT: Conjunctivae non-injected, sclerae anicteric, MMM, OP clear. Resp: Respirations nonlabored. Ext: L BKA and R foot both with dressings in place. No joint warmth or effusions noted. Skin: No rashes or lesions. Neuro: Alert & interactive. Grossly non-focal. Psych: Pleasant, appropriate. Results & Data Vital Signs (Past 12 Hours) Vital Signs Temp Pulse Resp BP Pulse Ox O2 Del Method 08/23/24 07:40 36.8 C 74 18 123/63 94 Room Air 08/23/24 07:30 Room Air 08/23/24 01:47 36.4 C L 61 16 130/64 94 Room Air Diagnostic Findings Diagnostics: 08/22 CXR Airspace opacity in the right midlung is compatible with aspiration/pneumonia. 08/21 OR path: PENDING 08/18/24 Op note Procedures p Right Second Toe Amputation(Right) Description of Procedure There was a 4 cm lesion on the heel in which the epidermis was lost secondary to blistering but there was healthy red dermal tissue beneath this without any surrounding erythema purulence or fluctuance. The right second toe demonstrated exposed bone at the tip with no active bleeding no erythema swelling purulence or drainage. 7 cc of a 50-50 mixture of lidocaine and Marcaine were injected for digital block. DVT prophylaxis was not indicated. Fluoroscopic guidance was utilized. I did a fishmouth amputation through the PIP joint of the second toe. The skin was incised just distal to the joint. The joint was entered the collateral ligaments resection. The flexor tendon was released and allowed to retract. A plantar flap was created. There was reasonable bleeding throughout including the flap. The toe was removed and sent for specimen. Culture and biopsy. The toe was irrigated and closed with interrupted 3-0 nylon horizontal mattress stitches. A soft sterile dressing was applied. Optifoam on the heel. Soft wrap Jonathan wrap postop shoe. Micro Data: 08/22 BCx x2: PEND 08/18 R 2nd toe OR Cx: many Serratia marcescens (koehler-S including S- ceftriaxone/cipro/Bactrim), few Stenotrophomonas maltophilia (S-Bactrim), few Jailyn albicans/dubliniensis prior micro Wound culture 07/26 (OR) L BKA: G/S few GPC in clusters: Moderate MRSA (no new sensis) Wound culture 07/25 (outpt) L BKA: G/S few GPC in clusters: Many MRSA (S- vanco/dapto/Bactrim) Antibiotic Summary: linezolid (08/23 present) ceftriaxone (08/23 present) prior daptomycin (07/28 08/23, intended EOT 09/06/24) ciprofloxacin (08/20 08/23) vancomycin cefepime
[2024-08-23] MEDS: LINEZOLID 600 MG TAB PO SCH (14:50)
--- NOTE | 2024-08-23 15:27 | Electrocardiogram Report ---
Test Reason : Blood Pressure : */* mmHG Vent. Rate : 77 BPM Atrial Rate : 77 BPM P-R Int : 154 ms QRS Dur : 130 ms QT Int : 426 ms P-R-T Axes : 15 -4 14 degrees QTcB Int : 482 ms Normal sinus rhythm Right bundle branch block Abnormal ECG No previous ECGs available Confirmed by Devan Ashley ([id number]) on 08/23/2024 3:27:07 PM Referred By: Marquis Dominguez Confirmed By: Devan Ashley
--- NOTE | 2024-08-23 16:08 | CT Scan Report ---
CT chest diagnostic wo con CT DOSE: 262.41 mGy.cm CLINICAL HISTORY: 79 years-old Male with fever, leukocytosis. Acute febrile shortness of breath TECHNIQUE: Multiaxial CT images of the chest were performed without contrast. A dose lowering techni que was utilized adhering to the principles of ALARA. COMPARISON: Chest radiograph 08/22/2024 FINDINGS: Unremarkable thyroid. A left-sided PICC is noted with distal tip terminating within the inf erior SVC. Heart is upper limits of normal in size. Median sternotomy with CABG. Extensive coronary a rtery calcifications. No thoracic aortic aneurysm. Mild generalized body wall edema. Mild subcarinal lymphadenopathy with lymph nodes measuring up to 11 mm, likely reactive. Trace pleural effusions. No pneumothorax. There is progressive worsening of the multifocal patchy rashi eolar opacities with surrounding groundglass density. Scattered subcentimeter nodular foci are also p resent within the lower lobes, likely related to the airspace disease. Central airways are patent. Distended stomach. Moderate fecal retention. Unremarkable soft tissues. No acute fracture. IMPRESSION: 1. Multifocal pneumonia within the right greater than left lungs. Follow-up imaging to document resol ution recommended after treatment course. 2. Mild likely reactive mediastinal lymphadenopathy with trace pleural effusions. 3. Satisfactory positioning of the left-sided PICC. ACT 112: Negative or not required by law. Electronically signed by: Juan Lou M.D. 08/23/2024 4:06 PM
[2024-08-23] MEDS: LINEZOLID 600 MG/300 ML BAG IV SCH (16:47)
[2024-08-24 05:53] LABS: Basophils # (auto) 0.07 K/uL (0.00-0.20); Basophils % (auto) 0.4 %; Eosinophils # (auto) 1.24 K/uL (0.00-0.50); Eosinophils % (auto) 7.4 %; Hematocrit (blood only) 27.5 % (42.0-52.0); Hemoglobin 9.6 g/dl (14.0-18.0); Immature Granulocytes # (auto) 0.13 K/uL (0.01-0.20); Immature Granulocytes % (auto) 0.8 %; Lymphocytes % (auto) 7.1 %; Mean Corpuscular Hemoglobin 29.8 pg (25.0-34.0); Mean Corpuscular Hgb Conc 34.9 g/dL (32.0-36.0); Mean Corpuscular Volume 85.4 fL (80.0-100.0); Mean Platelet Volume 8.6 fL (9.4-12.4); Monocytes # (auto) 1.21 K/uL (0.11-0.59); Monocytes % (auto) 7.2 %; Neutrophils # (auto) 12.98 K/uL (1.40-6.50); Neutrophils % (auto) 77.1 %; Platelet Count 475 K/uL (130-400); RDW Coefficient of Variation 14.2 % (11.5-14.5); RDW Standard Deviation 44.4 fL (36.4-46.3); Red Blood Count 3.22 M/uL (4.70-6.10); White Blood Count 16.83 K/ul (4.8-10.8)
[2024-08-24 06:08] LABS: Albumin Level 2.7 gm/dl (3.4-5.0); BUN Creatinine Ratio 27.1 (10-20); Bilirubin,Total 0.5 mg/dl (0.2-1.0); Calcium 8.3 mg/dl (8.6-10.3); Magnesium 1.7 mg/dl (1.7-2.4); Phosphorus 3.6 mg/dl (2.5-4.9); Potassium 3.8 mmol/L (3.5-5.1); Total Protein 5.8 gm/dl (6.0-8.3)
[2024-08-24] MEDS: LANTUS PER UNIT CHARGE SQ SCH (08:55)
--- NOTE | 2024-08-24 10:24 | Infectious Disease Progress Nt ---
Date of Service August 24, 2024 Assessment & Plan (1) Status post amputation of toe of right foot: (2) Postoperative fever: (3) Peripheral eosinophilia: Plan ID Problem List: 1. 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 Fevers, leukocytosis 4. Peripheral eosinophilia 5. Concern for daptomycin-related drug reaction including possible eosinophi lic pneumonia 6. Possible antibiotic allergies: Augmentin (vomiting), Bactrim (vomiting) Impression: Tre Gonzalez is a 79-year-old man with history of L BKA on 07/04/2024 c/b stump infection s/p I&D with L BKA revision on 07/26/24, history of R great toe partial amputation, SIADH, , CAD s/p CABG, PAD, T1DM, CKD3, HTN, who presents to [facility] on 08/18/24 with R 2nd toe wound with exposed bone, now s/p R 2nd toe amputation on 08/18/24. Post-operative course c/b fevers and leukocytosis. ID is consulted for R 2nd toe osteomyelitis, and post-op fevers and leukocytosis. The patient recently had L BKA on 07/04/2024. He was recently hospitalized 07/25 - 07/28/24 for post-operative stump infection. He underwent I&D and L BKA revision on 07/26/24, OR Cx grew MRSA. He was seen by ID, who noted that there was not definitive evidence of stump osteomyelitis (no OR pathology was sent), however per orthopedic surgery was preferring a longer (tentative 6-week course) of abx out of caution. He was placed on IV daptomycin (8 mg/kg) for an intended 6-week course (07/2609/06/24). He was reportedly seen by [facility] infectious diseases (Dr. Dumont) as an outpatient, who recommended to continue the full 6-week course of IV abx (EOT 09/06/24). He also has a chronic wound at the tip of his R 2nd toe with exposed bone and c/f osteomyelitis. He was seen by Dr. Dominguez who recommended toe amputation. Now s/p R 2nd toe amputation on 08/18/24, Cx + Serratia marcescens, Stenotrophomonas maltophilia, and Jailyn albicans/dubliniensis. His IV daptomycin was continued. He was started on ciprofloxacin on 08/20. I discussed with Dr. Dominguez on 08/23/24. Intraoperatively, the site of amputation was very proximal to the infected portion of the toe. Therefore, very low suspicion for any residual osteomyelitis, and Dr. Dominguez recommends to treat just for any residual SSTI. Also per Dr. Dominguez, the pts L BKA site appears to be healing well. His hospital course has been c/b fevers T38.4 on 08/19, T38.5 on 08/21, T38.2 on 08/23. His WBC count has been elevated, 15.7 on 08/22 (eos 8% and AEC 1260). On 08/18, he also had elevated peripheral eosinophilia (WBC 11.8, eos 9.4%, and AEC 1110). SpO2 ranging 90-95% on RA; a CXR from 08/22 showing R midlung airspace opacity with question of possible aspiration pna. At the time of evaluation, the patient feels frustrated that he is remaining in the hospital. He denies pain, rash, diarrhea, or other symptoms. No recent travel or other exposures; no travel internationally since 2006 (only been to countries including [place], [place], [place], [place]; no travel to [place] or [place]). Has two 13yo indoor cats; no other wild/farm animal exposures. No raw meat/fish or other ingestions. Discussion Pt with R 2nd toe osteomyelitis now s/p amputation per Dr. Dominguez, the amputation was quite proximal to the exposed bone in the distal toe and there is very low suspicion for any residual bony infection. Per Dr. Dominguez, the pts L BKA site (for which pt had recent I&D for MRSA stump infection and was on IV daptomycin prior to admission) looks good and the wound is healing well. His OR wound Cx from 08/18 grew Serratia marcescens, Stenotrophomonas maltophilia, and Jailyn albicans/dubliniensis which were reported to be from the distally amputated site. It is likely that the Jailyn and Stenotrophomonas were both wound colonizers and underwent the majority of source control in the OR. Pt had been on ciprofloxacin for the Serratia. Note QTc of 482 on 08/23/24 (after having been on ciprofloxacin since 08/20). Reasonable to continue coverage for possible residual Serratia SSTI for a ~2 week course post-OR. Would also continue MRSA coverage to complete a 6-week course. Post-operatively, he has had multiple fevers and a rising leukocytosis, accompanied by a peripheral eosinophilia. No rashes, diarrhea, or other localizing symptoms. He has had mild hypoxemia (Spo2 90-95% on RA on 08/23) with 08/22 CXR showing a R midlung opacity with c/f aspiration pna; 08/23 CT chest with multifocal pna R > L (patch alveolar opacities with surrounding GGOs, scattered subcentimenter nodular foci in lower lobes), mild reactive mediastinal LAD and trace pleural effusions. The patient has had no coughing or shortness of breath. He otherwise feels well and without other localizing s/sx. Wonder whether pt may have a drug reaction to daptomycin (that explains the fevers/leukocytosis and pulmonary infiltrates) including possible daptomycin- induced eosinophilic pneumonia, especially given that pt has been on daptomycin for ~4 weeks. Have changed from daptomycin to linezolid on 08/23 (especially per prior ID consult without overt evidence of bony infection and prior recs considering changing to PO after 4 weeks of IV abx, and per surgery his L BKA site appears to be doing very well) to continue MRSA coverage for his L BKA infection to complete a 6-week course. Have also changed from ciprofloxacin to ceftriaxone to cover for both possible aspiration/bacterial pna and Serratia SSTI of the R foot. Will follow 08/23 BCx, thus far NGTD. Will continue to monitor fever curve and WBC count. On 08/24, he is thus far afebrile but does continue to have leukocytosis with peripheral eosinophilia this is difficult to interpret since he received daptomycin on 08/23 (and therefore 08/24 is his first day off daptomycin). If this is indeed a daptomycin reaction, symptoms may improve with cessation of daptomycin alone, but if they persist may consider a trial of steroids. Would also start steroids if significant respiratory worsening (worsening hypoxemia or respiratory symptoms). Recommendations: - Continue linezolid 600 mg PO BID to complete a 6-week course (EOT 09/06/24) for MRSA L BKA infection - Continue ceftriaxone 2g IV q24h to cover possible aspiration pna and Serratia SSTI of the R foot - If fevers/leukocytosis are indeed a from daptomycin reaction, symptoms may improve with cessation of daptomycin alone, but if they persist may consider a trial of steroids. Would also start steroids if significant respiratory worsening (worsening hypoxemia or respiratory symptoms) - Holding off on additional abx for Jailyn or Stenotrophomonas at this time given likelihood of wound colonizers (that were removed by amputation) - Continue to monitor fever curve, CBC w/ diff (including eosinophil count) - F/u 08/23 BCx until finalized to ensure remain negative - Weekly lab monitoring while on IV antibiotics: CBC w/ diff, CMP, ESR, CRP, CK for daptomycin (consider twice weekly if on a statin). Ensure that labs are faxed to PCP and ID clinic (if applicable) - Ensure close follow-up with ID (pt recently established with outpatient [facility] ID), orthopedic surgery, and primary care ID will continue to follow. Karen Valdivia MD, [facility] Infectious Diseases [facility] Connect ID Connect direct line: [phone] Admission and Anticipated Discharge Date Admission Date: August 20, 2024 Subjective Subsequent visit was provided via telemedicine using two-way real-time interactive telecommunication between the patient and the telemedicine provider. For the duration of the visit, the provider was performing the assessment from a different facility than the patient. This includesuse of bluetooth stethoscope forauscultationperformed by the telepresenter that the telemedicine provider can hear if described in the physical exam. Television Actor contact information: Please call ID Connect Call Center [phone]. (Phone Number For Physician Use Only) After establishing a telemedicine visit, patient was: Patient was verified with two unique identifiers, Patient/authorized rep acknowledged consent and understanding and Gave permission to continue telehealth session Time Spent with Patient: Subsequent => 35 min - Afebrile, WBC 16.83 (eos 7.4% AEC 1240). Remains afebrile thus far this AM - AST 40 ALT 57 alk phos 89 tbili 0.5 - SpO2 90-95% on RA - Last dose of daptomycin was 08/23 at 10:35am - 08/23 CT chest with multifocal pna R > L (patch alveolar opacities with surrounding GGOs, scattered subcentimenter nodular foci in lower lobes), mild reactive mediastinal LAD and trace pleural effusions - Feels well, denies any new symptoms, no cough or shortness of breath. Frustrated by extended hospitalization Physical Exam Physical Exam: Exam obtained with aid of in-person telepresenter. General: Well-appearing, no acute distress HEENT: Conjunctivae non-injected, sclerae anicteric, MMM, OP clear. Resp: Respirations nonlabored. Ext: L BKA and R foot both with dressings in place. No joint warmth or effusions noted. Skin: No rashes or lesions. Neuro: Alert & interactive. Grossly non-focal. Psych: Pleasant, appropriate. Results & Data Vital Signs (Past 12 Hours) Vital Signs Temp Pulse Resp BP Pulse Ox O2 Del Method 08/24/24 07:33 37.4 C 65 20 121/61 95 Room Air Diagnostic Findings Diagnostics: 08/23 CT chest FINDINGS: Unremarkable thyroid. A left-sided PICC is noted with distal tip terminating within the inferior SVC. Heart is upper limits of normal in size. Median sternotomy with CABG. Extensive coronary artery calcifications. No thoracic aortic aneurysm. Mild generalized body wall edema. Mild subcarinal lymp hadenopathy with lymph nodes measuring up to 11 mm, likely reactive. Trace pleural effusions. No pneumothorax. There is progressive worsening of the multifocal patchy alveolar opacities with surrounding groundglass density. Scattered subcentimeter nodular foci are also present within the lower lobes, likely related to the airspace disease. Central airways are patent. Distended stomach. Moderate fecal retention. Unremarkable soft tissues. No acute fracture. IMPRESSION 1. Multifocal pneumonia within the right greater than left lungs. Follow-up imaging to document resolution recommended after treatment course. 2. Mild likely reactive mediastinal lymphadenopathy with trace pleural effusions. 3. Satisfactory positioning of the left-sided PICC. 08/22 CXR Airspace opacity in the right midlung is compatible with aspiration/pneumonia. 08/21 OR path: PENDING 08/18/24 Op note Procedures p Right Second Toe Amputation(Right) Description of Procedure There was a 4 cm lesion on the heel in which the epidermis was lost secondary to blistering but there was healthy red dermal tissue beneath this without any surrounding erythema purulence or fluctuance. The right second toe demonstrated exposed bone at the tip with no active bleeding no erythema swelling purulence or drainage. 7 cc of a 50-50 mixture of lidocaine and Marcaine were injected for digital block. DVT prophylaxis was not indicated. Fluoroscopic guidance was utilized. I did a fishmouth amputation through the PIP joint of the second toe. The skin was incised just distal to the joint. The joint was entered the collateral ligaments resection. The flexor tendon was released and allowed to retract. A plantar flap was created. There was reasonable bleeding throughout including the flap. The toe was removed and sent for specimen. Culture and biopsy. The toe was irrigated and closed with interrupted 3-0 nylon horizontal mattress stitches. A soft sterile dressing was applied. Optifoam on the heel. Soft wrap Jonathan wrap postop shoe. Micro Data: 08/22 BCx x2: NGTD 08/18 R 2nd toe OR Cx: many Serratia marcescens (koehler-S including S- ceftriaxone/cipro/Bactrim), few Stenotrophomonas maltophilia (S-Bactrim), few Jailyn albicans/dubliniensis prior micro Wound culture 07/26 (OR) L BKA: G/S few GPC in clusters: Moderate MRSA (no new sensis) Wound culture 07/25 (outpt) L BKA: G/S few GPC in clusters: Many MRSA (S- vanco/dapto/Bactrim) Antibiotic Summary: linezolid (08/23 present) ceftriaxone (08/23 present) prior daptomycin (07/28 08/23, intended EOT 09/06/24) ciprofloxacin (08/20 08/23) vancomycin cefepime
--- NOTE | 2024-08-24 14:09 | Hospitalist Progress Note ---
Date of Service August 24, 2024 Assessment & Plan (1) S/P BKA (below knee amputation) unilateral: (2) Post-operative infection: (3) PAD (peripheral artery disease): (4) Diabetic foot ulcer: (5) Type 1 diabetes mellitus with complications: (6) CAD (coronary atherosclerotic disease): (7) Dyslipidemia: (8) Hypertension: (9) Hypothyroidism: Plan Patient is a 79-year-old male with a past medical history of left BKA on 07/04/2024, SIADH, anemia, CAD with Hx of CABG, PAD, carotid stenosis, HTN, DM type I, CKD 3, hypothyroidism who is s/p R second toe amputation on 08/18 with orthopedic surgery. S/p right second toe amputation 08/18 POD 6 Postop pain management/wound care per primary team Hgb was 7.6 on POD 1. Preop was 9.2 Acute on chronic anemia Unlikely blood loss from OR Possible dilutional Considering patient's extensive Hx of cardiovascular disease, got 1 PRBC to get Hgb>8. Hgb currently >8 Anemia workup showed low iron level <10, on iron supplements Intraop Toe culture from 08/18 grew Serratia, Stenotrophomonas, ngoc Blood Cx x2 sets pending from 08/22 with noted increasing leukocytosis, fever and elevated crp. Procal negative Was on IV daptomycin and po cipro per orthopedics. ID consulted, appreciate further recs -Discussion with [facility] ID Dr Valdivia on 08/23/24. Advised the following: -discontinue IV daptomycin due to concern for eosinophilic pneumonia -start Linezolid for 2 weeks, and Rocephin for aspiration pneumonia noted on chest xray (per ID no need for Flagyl as rocephin covers mouth anaerobes) and serratia noted on toe cx -consider addition of fluconazole for ngoc noted -can further define chest pathology with CT chest, ordered. Noted pneumonia Per orthopedic surgery, he can weight-bear with the postop shoe for transfers otherwise should not be walking on right foot. Pain control with tylenol and IV narcotics. Monitor bowel function Senokot scheduled daily per patient's preference Miralax prn constipation Continue to monitor S/p left BKA Postop infection of stump: Was on IV Dapto which was started last admission 07/28 Discontinued as above on 08/23 Per ID continue with IV Linezolid and Rocephin as noted above Hx SIADH: Stable Monitor Hx CAD/CABG/PAD: Hx carotid stenosis/HTN: Follows with vascular surgery Takes Eliquis/Plavixcontinue both when okay with primary team Continue Toprol/amlodipine/Lipitor Hx DM1: Takes lispro and Lantus at home, glycemic consult placed 4 times daily BGM, continue to monitor Hx hypothyroidism: Continue levothyroxine Full code DVT prophylaxis: Defer to Surgeon Dispo: placement once medically stable Admission and Anticipated Discharge Date Admission Date: August 20, 2024 Subjective Patient was seen sitting up in bed. Expressing desire to go home once more. Denies pain. With some constipation, states he feels like his appetite is decreasing. Review of Systems Review of Systems: All systems reviewed & are unremarkable except as noted in Subjective Physical Exam Physical Exam: General: Alert, oriented. No acute distress Psych: Appropriate mood and affect HEENT: NC/AT CV: RRR Resp: Breath sounds clear bilaterally, no increased effort of breathing Abdomen: Soft, nontender Extremities: LLE with noted bandaged stump, RLE with bandaged toes Results & Data Results & Data Vital Signs (Past 12 Hours) Vital Signs Temp Pulse Resp BP Pulse Ox O2 Del Method 08/24/24 07:33 37.4 C 65 20 121/61 95 Room Air (2) Post-operative infection Encounter type: initial encounter Postoperative infection type: deep incisional surgical site Qualified Code(s): T81.42XA - Infection following a procedure, deep incisional surgical site, initial encounter
--- NOTE | 2024-08-24 14:26 | Pharmacy Report ---
Pharmacy Glycemic Short Note 2 - Date of Service August 24, 2024 - Glycemic Short BSG Results (Last 24 hours): 08/23/24 08/23/24 08/24/24 16:34 20:37 05:29 Glucose 214 H POC Glucose 185 H 217 H 08/24/24 08/24/24 07:42 11:36 Glucose POC Glucose 193 H 155 H OUTPATIENT ANTIDIABETIC REGIMEN: * Lantus 18 units SQ qAM * Lispro 3 units with break, 3-5 units with lunch, 4-10 units with dinner * A1c = 7.7% ASSESSMENT: 08/24 * 34 units of insulin have been given yesterday. 18 units were basal insulin and 16 units of bolus insulin. * BSG has been elevated through day so basal insulin was increased slightly to 20 units in the morning. * Fasting BSG has also been elevated the last few days, so the HS correction factor was decreased slightly. 08/21 * Patient requesting that his lantus be increased to his home dose of 18 units despite hypoglycemia seen this morning. Since this low BSG is likely not due to the Lantus (last dose was 08/20 AM and BSG last evening was 239mg/dL), it was increased from 15 units to 18 units this morning. * The bedtime bolus regimen was changed in order to help prevent low BSG in the morning. The goal range was increased to 140-160 and the CF was loosened only for HS. 08/20 * Tre is a 79 yo T1DM admitted with diabetic foot ulcer s/p right second toe amputation on 08/18 * Fasting BSG today is at goal but trending downward. Will decrease dose slightly this morning. Patient required ~14 units of basal insulin per day during past admission. * Post prandial BSG is acceptable today. Of note, patient did experience hyperglycemia yesterday evening. I suspect this was actually due to basal deficiency after he took a partial dose of Lantus prior to surgery on 08/18 AM. Because of this, will hold off on tightening Novolog today. PLAN FOR INPATIENT GLYCEMIC CONTROL: * Hold outpatient diabetes medications * Basal insulin * Lantus 20 units SQ qAM * Bolus insulin * NovoLog per scale ACHS or Q6hrs while NPO * Goal Range: Low 110 mg/dL - High 140 mg/dL before meals; and Low 140mg/dL - High 180mg/dL at bedtime * Correction Factor: 30 mg/dL/unit before meals; and 40 mg/dL at bedtime. * Nutritional / Prandial insulin per carb ratio of 1 unit per 11 grams CHO consumed
--- NOTE | 2024-08-24 16:37 | Orthopedic Progress Note ---
Date of Service August 24, 2024 Assessment & Plan (1) Status post amputation of toe of right foot: Plan: s/p Right 2nd toe amputation for osteomyelitis on 08/18/24. 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 Continue Aspirin 325mg twice daily for DVT prophylaxis. May be out of bed to chair using sliding board and right foot on ground for balance with post op shoe in place. Keep pressure off heels when in bed, using pillow or waffle boot Elevate left leg and right foot as needed for swelling. Continue antibiotics as recommended by Infectious Disease - appreciate their input. Currently on Linezolid and Ceftriaxone, IV dapto stopped as of 08/23/24 Case management for disposition needs If symptoms continue to improve then plan for possible discharge to [facility] tomorrow. Dr. Dominguez present for today's visit Will re-eval in AM. (2) Postoperative fever: Plan: see above (3) Peripheral eosinophilia: Plan: see above (4) S/P BKA (below knee amputation) unilateral: Plan: see above (5) Pressure ulcer of right heel: Plan: see above Admission and Anticipated Discharge Date Admission Date: August 20, 2024 Subjective Patient sitting up in chair. Seems a little "down" due to extended hospital stay. States that he has a little bit of a dry cough, occasionally with some production "if he coughs hard enough". Using incentive spirometer. on speakerphone for visit today. Physical Exam Musculoskeletal: Exam of his left stump: Dressings removed, incisions clean,dry and intact. 2 sutures retained, steri-strips in place. No edema, skin is dry, no erythema, nontender to palpation. Full left knee ROM. Able to independently straight leg raise. Exam of right 2nd toe: Dried bloody drainage evident over incision. Sutures intact. Toe cleansed with a sterile saline wipe. Cap refill brisk. Nontender to palpation. Mild erythema. Mild edema. Exam of right heel: Optifoam in place. Not removed today. Results & Data Vital Signs (Past 12 Hours) Vital Signs Temp Pulse Resp BP Pulse Ox O2 Del Method 08/24/24 15:49 37.2 C 96 H 18 137/64 94 Room Air 08/24/24 07:33 37.4 C 65 20 121/61 95 Room Air Laboratory Results 08/24/24 08/24/24 08/24/24 Range/Units 11:36 07:42 05:29 WBC 16.83 H (4.8-10.8) K/ul RBC 3.22 L (4.70-6.10) M/uL Hgb 9.6 L (14.0-18.0) g/dl Hct 27.5 L (42.0-52.0) % MCV 85.4 (80.0-100.0) fL MCH 29.8 (25.0-34.0) pg MCHC 34.9 (32.0-36.0) g/dL RDW Std Deviation 44.4 (36.4-46.3) fL RDW Coeff of Swetha 14.2 (11.5-14.5) % Plt Count 475 H (130-400) K/uL MPV 8.6 L (9.4-12.4) fL Immature Gran % (Auto) 0.8 % Neut % (Auto) 77.1 % Lymph % (Auto) 7.1 % [place] % (Auto) 7.2 % Eos % (Auto) 7.4 % Baso % (Auto) 0.4 % Neut # (Auto) 12.98 H (1.40-6.50) K/uL Lymph # (Auto) 1.20 (1.20-3.40) K/uL [place] # (Auto) 1.21 H (0.11-0.59) K/uL Eos # (Auto) 1.24 H (0.00-0.50) K/uL Baso # (Auto) 0.07 (0.00-0.20) K/uL Immature Gran # (Auto) 0.13 (0.01-0.20) K/uL Sodium 127 L (136-145) mmol/L Potassium 3.8 (3.5-5.1) mmol/L Chloride 95 L (98-107) mmol/L Carbon Dioxide 23 (21-32) mmol/L Anion Gap 9 (3-11) BUN 26 H (6-23) mg/dl Creatinine 0.96 (0.6-1.4) mg/dl Est Cr Clr Drug Dosing 54.0 ml/min eGFR 80.40 BUN/Creatinine Ratio 27.1 H (10-20) Glucose 214 H (70-99(Fasting)) mg/dl POC Glucose 155 H 193 H (70-99) mg/dl Calcium 8.3 L (8.6-10.3) mg/dl Phosphorus 3.6 (2.5-4.9) mg/dl Magnesium 1.7 (1.7-2.4) mg/dl Total Bilirubin 0.5 (0.2-1.0) mg/dl Direct Bilirubin 0.0 (0-0.2) mg/dl AST 40 H (13-39) U/L ALT 57 H (7-52) U/L Alkaline Phosphatase 89 (34-104) U/L Total Protein 5.8 L (6.0-8.3) gm/dl Albumin 2.7 L (3.4-5.0) gm/dl 08/23/24 08/23/24 Range/Units 20:37 16:34 WBC (4.8-10.8) K/ul RBC (4.70-6.10) M/uL Hgb (14.0-18.0) g/dl Hct (42.0-52.0) % MCV (80.0-100.0) fL MCH (25.0-34.0) pg MCHC (32.0-36.0) g/dL RDW Std Deviation (36.4-46.3) fL RDW Coeff of Swetha (11.5-14.5) % Plt Count (130-400) K/uL MPV (9.4-12.4) fL Immature Gran % (Auto) % Neut % (Auto) % Lymph % (Auto) % [place] % (Auto) % Eos % (Auto) % Baso % (Auto) % Neut # (Auto) (1.40-6.50) K/uL Lymph # (Auto) (1.20-3.40) K/uL [place] # (Auto) (0.11-0.59) K/uL Eos # (Auto) (0.00-0.50) K/uL Baso # (Auto) (0.00-0.20) K/uL Immature Gran # (Auto) (0.01-0.20) K/uL Sodium (136-145) mmol/L Potassium (3.5-5.1) mmol/L Chloride (98-107) mmol/L Carbon Dioxide (21-32) mmol/L Anion Gap (3-11) BUN (6-23) mg/dl Creatinine (0.6-1.4) mg/dl Est Cr Clr Drug Dosing ml/min eGFR BUN/Creatinine Ratio (10-20) Glucose (70-99(Fasting)) mg/dl POC Glucose 217 H 185 H (70-99) mg/dl Calcium (8.6-10.3) mg/dl Phosphorus (2.5-4.9) mg/dl Magnesium (1.7-2.4) mg/dl Total Bilirubin (0.2-1.0) mg/dl Direct Bilirubin (0-0.2) mg/dl AST (13-39) U/L ALT (7-52) U/L Alkaline Phosphatase (34-104) U/L Total Protein (6.0-8.3) gm/dl Albumin (3.4-5.0) gm/dl Microbiology 08/22/24 18:34 Aerobic Blood Culture - Preliminary Blood No growth in Aerobic bottle after 24 hours. Anaerobic Blood Culture - Preliminary No growth in Anaerobic bottle after 24 hours. 08/22/24 18:28 Aerobic Blood Culture - Preliminary Blood No growth in Aerobic bottle after 24 hours. Anaerobic Blood Culture - Preliminary No growth in Anaerobic bottle after 24 hours.
[2024-08-25 07:41] VITALS: RESP 18; TEMP 98.8
[2024-08-25 07:50] LABS: Basophils # (auto) 0.06 K/uL (0.00-0.20); Basophils % (auto) 0.4 %; Eosinophils # (auto) 2.34 K/uL (0.00-0.50); Eosinophils % (auto) 14.7 %; Hematocrit (blood only) 25.7 % (42.0-52.0); Hemoglobin 8.8 g/dl (14.0-18.0); Immature Granulocytes # (auto) 0.11 K/uL (0.01-0.20); Immature Granulocytes % (auto) 0.7 %; Lymphocytes # (auto) 1.31 K/uL (1.20-3.40); Lymphocytes % (auto) 8.2 %; Mean Corpuscular Hemoglobin 29.5 pg (25.0-34.0); Mean Corpuscular Hgb Conc 34.2 g/dL (32.0-36.0); Mean Corpuscular Volume 86.2 fL (80.0-100.0); Mean Platelet Volume 8.7 fL (9.4-12.4); Monocytes # (auto) 1.23 K/uL (0.11-0.59); Monocytes % (auto) 7.7 %; Neutrophils # (auto) 10.91 K/uL (1.40-6.50); Neutrophils % (auto) 68.3 %; Platelet Count 445 K/uL (130-400); RDW Coefficient of Variation 14.3 % (11.5-14.5); RDW Standard Deviation 45.5 fL (36.4-46.3); Red Blood Count 2.98 M/uL (4.70-6.10); White Blood Count 15.96 K/ul (4.8-10.8)
[2024-08-25 07:54] LABS: BUN Creatinine Ratio 24.5 (10-20); Calcium 8.5 mg/dl (8.6-10.3); Creatinine Clr Calc Pharmacy 52.9 ml/min; Magnesium 1.8 mg/dl (1.7-2.4); Phosphorus 3.6 mg/dl (2.5-4.9); Potassium 3.6 mmol/L (3.5-5.1)
--- NOTE | 2024-08-25 10:11 | Infectious Disease Progress Nt ---
Date of Service August 25, 2024 Assessment & Plan (1) Status post amputation of toe of right foot: (2) Postoperative fever: (3) Peripheral eosinophilia: Plan ID Problem List: 1. 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 Fevers, leukocytosis 4. Peripheral eosinophilia 5. Pulmonary infiltrates 6. 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 Possible antibiotic allergies: Augmentin (vomiting), Bactrim (vomiting) Impression: Tre Gonzalez is a 79-year-old man with history of L BKA on 07/04/2024 c/b stump infection s/p I&D with L BKA revision on 07/26/24, history of R great toe partial amputation, SIADH, , CAD s/p CABG, PAD, T1DM, CKD3, HTN, who presents to [facility] on 08/18/24 with R 2nd toe wound with exposed bone, now s/p R 2nd toe amputation on 08/18/24. Post-operative course c/b fevers and leukocytosis. ID is consulted for R 2nd toe osteomyelitis, and post-op fevers and leukocytosis. The patient recently had L BKA on 07/04/2024. He was recently hospitalized 07/25 - 07/28/24 for post-operative stump infection. He underwent I&D and L BKA revision on 07/26/24, OR Cx grew MRSA. He was seen by ID, who noted that there was not definitive evidence of stump osteomyelitis (no OR pathology was sent), however per orthopedic surgery was preferring a longer (tentative 6-week course) of abx out of caution. He was placed on IV daptomycin (8 mg/kg) for an intended 6-week course (07/2609/06/24). He was reportedly seen by [facility] infectious diseases (Dr. Dumont) as an outpatient, who recommended to continue the full 6-week course of IV abx (EOT 09/06/24). He also has a chronic wound at the tip of his R 2nd toe with exposed bone and c/f osteomyelitis. He was seen by Dr. Dominguez who recommended toe amputation. Now s/p R 2nd toe amputation on 08/18/24, Cx + Serratia marcescens, Stenotrophomonas maltophilia, and Jailyn albicans/dubliniensis. His IV daptomy karen was continued. He was started on ciprofloxacin on 08/20. I discussed with Dr. Dominguez on 08/23/24. Intraoperatively, the site of amputation was very proximal to the infected portion of the toe. Therefore, very low suspicion for any residual osteomyelitis, and Dr. Dominguez recommends to treat just for any residual SSTI. Also per Dr. Dominguez, the pts L BKA site appears to be healing well. His hospital course has been c/b fevers T38.4 on 08/19, T38.5 on 08/21, T38.2 on 08/23. His WBC count has been elevated, 15.7 on 08/22 (eos 8% and AEC 1260). On 08/18, he also had elevated peripheral eosinophilia (WBC 11.8, eos 9.4%, and AEC 1110). SpO2 ranging 90-95% on RA; a CXR from 08/22 showing R midlung airspace opacity with question of possible aspiration pna. At the time of evaluation, the patient feels frustrated that he is remaining in the hospital. He denies pain, rash, diarrhea, or other symptoms. No recent travel or other exposures; no travel internationally since 2006 (only been to countries including [place], [place], [place], [place]; no travel to [place] or [place]). Has two 13yo indoor cats; no other wild/farm animal exposures. No raw meat/fish or other ingestions. Discussion Pt with R 2nd toe osteomyelitis now s/p amputation per Dr. Dominguez, the amputation was quite proximal to the exposed bone in the distal toe and there is low suspicion for any residual bony infection. Furthermore, 08/18 OR pathology showed that underlying bone is viable without evidence of osteomyelitis. Therefore, would only cover for any residual SSTI. His OR wound Cx from 08/18 grew many Serratia marcescens, few Stenotrophomonas maltophilia, and few Jailyn albicans/dubliniensis which were reported to be from the distally amputated site. Reasonable to continue coverage for possible residual SSTI including Serratia for a ~2 week course post-OR. It is likely that the Jailyn and Stenotrophomonas were both low-level wound colonizers and that the patient already underwent the majority of source control in the OR and thus will not target treatment specifically for those organisms. Per Dr. Dominguez, the pts L BKA site (for which pt had recent I&D for MRSA stump infection and was on IV daptomycin prior to admission) looks good and the wound is healing well. Would also continue MRSA coverage to complete a 6-week course. Post-operatively, he developed fevers, leukocytosis up to 16, and a new peripheral eosinophilia. He has had a very mild hypoxemia (down to SpO2 of 90% though more often saturating in mid-90s on RA) but denies ayn respiratory symptoms; no cough or shortness of breath. 08/22 CXR showing a R midlung opacity with c/f aspiration pna; 08/23 CT chest with multifocal pna R > L (patch alveolar opacities with surrounding GGOs, scattered subcentimenter nodular foci in lower lobes), mild reactive mediastinal LAD and trace pleural effusions. He did not develop any symptoms. He otherwise feels well and without other localizing s/sx; no rashes, diarrhea, dysuria, joint pain, back pain or other new symptoms. Given his fevers, leukocytosis, and pulmonary infiltrates, concerned that patient may have had a drug reaction to daptomycin including possible daptomycin-induced eosinophilic pneumonia, especially given that pt has been on daptomycin for ~4 weeks (symptoms often appear after a few weeks of therapy). The patient had not been consistently on another class of abx (was briefly on cipro for Serratia; was only placed on ceftriaxone after already having symptoms). Have stopped daptomycin and changed to linezolid on 08/23 to complete his 6-week MRSA course (especially per prior ID consult without overt evidence of bony infection and prior recs considering changing to PO after 4 weeks of IV abx, and per surgery his L BKA site appears to be doing very well). He last received daptomycin on 08/23. His fevers appear to be improving afebrile since 08/22, though still with leukocytosis up to 16 and rising eosinophilia up to WBC 16 (14.7% eos with AEC 2340) on 08/25. He otherwise feels well and is clinically stable; he developed only a very mild cough on 08/25 without shortness of breath. If the eosinophilia and pulmonary findings are indeed due to daptomycin, then overall his drug reaction is mild and would expected continued improvement with cessation of daptomycin especially as his fevers have already stopped. 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 If discharging, would ensure close lab follow-up as well as follow-up with SNF physicians and ID clinic (see below). It seems less likely that the patient has a typical bacterial pneumonia given his lack of symptoms. Nevertheless can cover slightly more broadly for Serratia/SSTI of the R foot and encompass treatment of possible pneumonia in this. Has been on ceftriaxone inpatient; can change to cefpodoxime if will be discharging. Recommendations: - Continue linezolid 600 mg PO BID to complete a 6-week course (EOT 09/06/24) for MRSA L BKA infection (can remove PICC) - Continue ceftriaxone while inpatient to cover possible aspiration pna and Serratia SSTI of the R foot. If stable/improving and will be discharging, change to cefpodoxime 400 mg PO BID to complete a 14-day course (08/1808/31/24) - Expect that eosinophilia will resolve with cessation of daptomycin, and reassuring that fevers have already stopped. If recurrent fevers or new hypoxemia (especially in the setting of continued peripheral eosinophilia), would consider a trial of steroids (e.g., prednisone 40 mg daily for two weeks) for possible daptomycin-induced eosinophilic pneumonitis, and would also reevaluate for new infectious sources - Continue to monitor fever curve, CBC w/ diff (including eosinophil count), CMP if discharging please ensure labs are checked within 3 days post-discharge - F/u 08/23 BCx until finalized to ensure remain negative - Weekly lab monitoring while on IV antibiotics: CBC w/ diff, CMP, ESR, CRP, CK for daptomycin. Ensure that labs are faxed to PCP and ID clinic (if applicable) - Ensure close follow-up with ID (pt recently established with outpatient Sergey QUIÑONEZ), orthopedic surgery, and primary care/SNF physician Plan discussed with Dr. Urias and Dr. Dominguez. Patient will likely soon, with close follow-up. Thank you for letting ID participate in the care of this patient. ID will sign off at this time. If questions, please contact the [facility] call center at [phone]. Karen Valdivia MD, M[facility] Infectious Diseases [facility] direct line: [phone] Admission and Anticipated Discharge Date Admission Date: August 20, 2024 Subjective Subsequent visit was provided via telemedicine using two-way real-time interactive telecommunication between the patient and the telemedicine provider. For the duration of the visit, the provider was performing the assessment from a different facility than the patient. This includesuse of bluetooth stethoscope forauscultationperformed by the telepresenter that the telemedicine provider can hear if described in the physical exam. Campus Security Director contact information: Please call [facility] Call Center . (Phone Number For Physician Use Only) After establishing a telemedicine visit, patient was: Patient was verified with two unique identifiers, Patient/authorized rep acknowledged consent and understanding and Gave permission to continue telehealth session Time Spent with Patient: Subsequent => 55 min - Feels well. No pain. Very mild cough that is new; no shortness of breath or pain. - Has remained afebrile since 08/22, WBC 16 (14.7% eos with AEC 2340). SpO2 93% on RA Physical Exam Physical Exam: Exam obtained with aid of in-person telepresenter. General: Well-appearing, no acute distress HEENT: Conjunctivae non-injected, sclerae anicteric, MMM, OP clear. Resp: Respirations nonlabored. Ext: Intertrigo of the groin, with cream in place. L BKA and R foot both with dressings in place. No joint warmth or effusions noted. Skin: No rashes or lesions. Neuro: Alert & interactive. Grossly non-focal. Psych: Pleasant, appropriate. Results & Data Vital Signs (Past 12 Hours) Vital Signs Temp Pulse Resp BP Pulse Ox O2 Del Method 08/25/24 07:40 37.1 C 69 18 137/65 93 Room Air 08/25/24 07:27 Room Air Diagnostic Findings Diagnostics: 08/23 CT chest FINDINGS: Unremarkable thyroid. A left-sided PICC is noted with distal tip terminating within the inferior SVC. Heart is upper limits of normal in size. Median sternotomy with CABG. Extensive coronary artery calcifications. No thoracic aortic aneurysm. Mild generalized body wall edema. Mild subcarinal lymphadenopathy with lymph nodes measuring up to 11 mm, likely reactive. Trace pleural effusions. No pneumothorax. There is progressive worsening of the multifocal patchy alveolar opacities with surrounding groundglass density. Scattered subcentimeter nodular foci are also present within the lower lobes, likely related to the airspace disease. Central airways are patent. Distended stomach. Moderate fecal retention. Unremarkable soft tissues. No acute fracture. IMPRESSION 1. Multifocal pneumonia within the right greater than left lungs. Follow-up imaging to document resolution recommended after treatment course. 2. Mild likely reactive mediastinal lymphadenopathy with trace pleural effusions. 3. Satisfactory positioning of the left-sided PICC. 08/22 CXR Airspace opacity in the right midlung is compatible with aspiration/pneumonia. 08/18 OR path: Toe, right second (right second toe amputation): - An ulcer with fibrinopurulent exudate is seen. - The underlying bone is viable and there is no evidence of osteomyelitis or osteonecrosis. - Gross examination reveals that much of the distal portion of this toe is ulcerated with exposed underlying phalangeal bone 08/18/24 Op note Procedures p Right Second Toe Amputation(Right) Description of Procedure There was a 4 cm lesion on the heel in which the epidermis was lost secondary to blistering but there was healthy red dermal tissue beneath this without any surrounding erythema purulence or fluctuance. The right second toe demonstrated exposed bone at the tip with no active bleeding no erythema swelling purulence or drainage. 7 cc of a 50-50 mixture of lidocaine and Marcaine were injected for digital block. DVT prophylaxis was not indicated. Fluoroscopic guidance was utilized. I did a fishmouth amputation through the PIP joint of the second toe. The skin was incised just distal to the joint. The joint was entered the collateral ligaments resection. The flexor tendon was released and allowed to retract. A plantar flap was created. There was reasonable bleeding throughout including the flap. The toe was removed and sent for specimen. Culture and biopsy. The toe was irrigated and closed with interrupted 3-0 nylon horizontal mattress stitches. A soft sterile dressing was applied. Optifoam on the heel. Soft wrap Jonathan wrap postop shoe. Micro Data: 08/22 BCx x2: NGTD 08/18 R 2nd toe OR Cx: many Serratia marcescens (koehler-S including S- ceftriaxone/cipro/Bactrim), few Stenotrophomonas maltophilia (S-Bactrim), few Jailyn albicans/dubliniensis prior micro Wound culture 07/26 (OR) L BKA: G/S few GPC in clusters: Moderate MRSA (no new sensis) Wound culture 07/25 (outpt) L BKA: G/S few GPC in clusters: Many MRSA (S- vanco/dapto/Bactrim) Antibiotic Summary: linezolid (08/23 present) ceftriaxone (08/23 present) prior daptomycin (07/28 08/23, intended EOT 09/06/24) ciprofloxacin (08/20 08/23) vancomycin cefepime
[2024-08-25] MEDS: SODIUM CHLORIDE 0.9% 1,000 ML IV SCH (10:14)
--- NOTE | 2024-08-25 12:11 | Discharge Summary ---
Date of Service August 25, 2024 Admission HPI Per Admitting Provider Tre Gonzalez is a 79 year old Male who presents today for pre-op H&P for . He is s/p RBKA with Dr Dominguez. He was seen by Serge[facility] yesterday Dr. Dumont, infectious disease, who recommend 3 more weeks of IV antibiotics. He has not had any drainage or other complications. He is scheduled with the wound clinic on 08/18. Otherwise he is doing well but notes this has been a difficult process. He had a circulation testing done on the right leg and results did not indicate any necessary intervention. He discontinued Plavix and Eliquis but is taking baby Aspirin at this point per Dr. Farr. He has been dealing with 2nd toe wound for a while now with no improvement. He was seen by Dr Dominguez who recommended toe amputation. Specialty Data Specialty Data ID Problem List: 1. 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 Fevers, leukocytosis 4. Peripheral eosinophilia 5. Pulmonary infiltrates 6. 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 Possible antibiotic allergies: Augmentin (vomiting), Bactrim (vomiting) Impression: Tre Gonzalez is a 79-year-old man with history of L BKA on 07/04/2024 c/b stump infection s/p I&D with L BKA revision on 07/26/24, history of R great toe partial amputation, SIADH, , CAD s/p CABG, PAD, T1DM, CKD3, HTN, who presents to [facility] on 08/18/24 with R 2nd toe wound with exposed bone, now s/p R 2nd toe amputation on 08/18/24. Post-operative course c/b fevers and leukocytosis. ID is consulted for R 2nd toe osteomyelitis, and post-op fevers and leukocytosis. The patient recently had L BKA on 07/04/2024. He was recently hospitalized 07/25 - 07/28/24 for post-operative stump infection. He underwent I&D and L BKA revision on 07/26/24, OR Cx grew MRSA. He was seen by ID, who noted that there was not definitive evidence of stump osteomyelitis (no OR pathology was sent), however per orthopedic surgery was preferring a longer (tentative 6-week course) of abx out of caution. He was placed on IV daptomycin (8 mg/kg) for an intended 6-week course (07/2609/06/24). He was reportedly seen by [facility] infectious diseases (Dr. Dumont) as an outpatient, who recommended to continue the full 6-week course of IV abx (EOT 09/06/24). He also has a chronic wound at the tip of his R 2nd toe with exposed bone and c/f osteomyelitis. He was seen by Dr. Dominguez who recommended toe amputation. Now s/p R 2nd toe amputation on 08/18/24, Cx + Serratia marcescens, Stenotrophomonas maltophilia, and Jailyn albicans/dubliniensis. His IV daptomycin was continued. He was started on ciprofloxacin on 08/20. I discussed with Dr. Dominguez on 08/23/24. Intraoperatively, the site of amputation was very proximal to the infected portion of the toe. Therefore, very low suspicion for any residual osteomyelitis, and Dr. Dominguez recommends to treat just for any residual SSTI. Also per Dr. Dominguez, the pts L BKA site appears to be healing well. His hospital course has been c/b fevers T38.4 on 08/19, T38.5 on 08/21, T38.2 on 08/23. His WBC count has been elevated, 15.7 on 08/22 (eos 8% and AEC 1260). On 08/18, he also had elevated peripheral eosinophilia (WBC 11.8, eos 9.4%, and AEC 1110). SpO2 ranging 90-95% on RA; a CXR from 08/22 showing R midlung airspace opacity with question of possible aspiration pna. At the time of evaluation, the patient feels frustrated that he is remaining in the hospital. He denies pain, rash, diarrhea, or other symptoms. No recent travel or other exposures; no travel internationally since 2006 (only been to countries including [place], [place], [place], [place]; no travel to [place] or [place]). Has two 13yo indoor cats; no other wild/farm animal exposures. No raw meat/fish or other ingestions. Discussion Pt with R 2nd toe osteomyelitis now s/p amputation per Dr. Dominguez, the amputation was quite proximal to the exposed bone in the distal toe and there is low suspicion for any residual bony infection. Furthermore, 08/18 OR pathology showed that underlying bone is viable without evidence of osteomyelitis. Therefore, would only cover for any residual SSTI. His OR wound Cx from 08/18 grew many Serratia marcescens, few Stenotrophomonas maltophilia, and few Jailyn albicans/dubliniensis which were reported to be from the distally amputated site. Reasonable to continue coverage for possible residual SSTI including Serratia for a ~2 week course post-OR. It is likely that the Jailyn and Stenotrophomonas were both low-level wound colonizers and that the patient already underwent the majority of source control in the OR and thus will not target treatment specifically for those organisms. Per Dr. Dominguez, the pts L BKA site (for which pt had recent I&D for MRSA stump infection and was on IV daptomycin prior to admission) looks good and the wound is healing well. Would also continue MRSA coverage to complete a 6-week course. Post-operatively, he developed fevers, leukocytosis up to 16, and a new peripheral eosinophilia. He has had a very mild hypoxemia (down to SpO2 of 90% though more often saturating in mid-90s on RA) but denies ayn respiratory symptoms; no cough or shortness of breath. 08/22 CXR showing a R midlung opacity with c/f aspiration pna; 08/23 CT chest with multifocal pna R > L (patch alveolar opacities with surrounding GGOs, scattered subcentimenter nodular foci in lower lobes), mild reactive mediastinal LAD and trace pleural effusions. He did not develop any symptoms. He otherwise feels well and without other localizing s/sx; no rashes, diarrhea, dysuria, joint pain, back pain or other new symptoms. Given his fevers, leukocytosis, and pulmonary infiltrates, concerned that patient may have had a drug reaction to daptomycin including possible daptomycin-induced eosinophilic pneumonia, especially given that pt has been on daptomycin for ~4 weeks (symptoms often appear after a few weeks of therapy). The patient had not been consistently on another class of abx (was briefly on cipro for Serratia; was only placed on ceftriaxone after already having symptoms). Have stopped daptomycin and changed to linezolid on 08/23 to complete his 6-week MRSA course (especially per prior ID consult without overt evidence of bony infection and prior recs considering changing to PO after 4 weeks of IV abx, and per surgery his L BKA site appears to be doing very well). He last received daptomycin on 08/23. His fevers appear to be improving afebrile since 08/22, though still with leukocytosis up to 16 and rising eosinophilia up to WBC 16 (14.7% eos with AEC 2340) on 08/25. He otherwise feels well and is clinically stable; he developed only a very mild cough on 08/25 without shortness of breath. If the eosinophilia and pulmonary findings are indeed due to daptomycin, then overall his drug reaction is mild and would expected continued improvement with cessation of daptomycin especially as his fevers have already stopped. 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 If discharging, would ensure close lab follow-up as well as follow-up with SNF physicians and ID clinic (see below). It seems less likely that the patient has a typical bacterial pneumonia given his lack of symptoms. Nevertheless can cover slightly more broadly for Serratia/SSTI of the R foot and encompass treatment of possible pneumonia in this. Has been on ceftriaxone inpatient; can change to cefpodoxime if will be discharging. Recommendations: - Continue linezolid 600 mg PO BID to complete a 6-week course (EOT 09/06/24) for MRSA L BKA infection (can remove PICC) - Continue ceftriaxone while inpatient to cover possible aspiration pna and Serratia SSTI of the R foot. If stable/improving and will be discharging, change to cefpodoxime 400 mg PO BID to complete a 14-day course (08/1808/31/24) - Expect that eosinophilia will resolve with cessation of daptomycin, and reassuring that fevers have already stopped. 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 Ensure that labs are faxed to PCP and ID clinic (if applicable) - Ensure close follow-up with ID (pt recently established with outpatient [facility]), orthopedic surgery, and primary care/SNF physician Plan discussed with Dr. Urias and Dr. Dominguez. Patient will likely soon, with close follow-up. Thank you for letting ID participate in the care of this patient. ID will sign off at this time. If questions, [facility] at [phone]. Karen Valdivia MD, S Infectious Diseases [facility]/ID Connect ID Connect direct line: [phone] Discharge Data Consultations 08/18/24 15:56 Consult Hospitalist Routine 08/23/24 08:41 Consult Infectious Diseases Routine Procedures Performed Operation Date: 08/18/24 13:00 Actual Procedures p Right Second Toe Amputation(Right) - Marquis Dominguez MD Hospital Course (1) Status post amputation of toe of right foot: Patient was kept in observation at [facility] after undergoing an elective right second toe amputation for osteomyelitis on August 18, [address] Dominguez. He tolerated the procedure well. He was kept overnight for observation. His IV daptomycin that he was on for history of a stump infection status post I&D on July 26, 2024 was continued. He was given a regular diet. A hospice consultation was placed for postoperative medical management. Intraoperative cultures of the right second toe were obtained. The cultures grew out Serratia marcescens and Stenotrophomonas maltophilia. He was placed on Cipro for the coverage of the Serratia marcescens. Due to the new bacteria growth a few days after surgery and infectious disease consult was placed. He is also becoming febrile through the evening. His white blood cell count was also climbing and he developed eosinophilia. Per infectious disease specialist the thought was that he was having an adverse reaction to the IV daptomycin. Chest x-ray and CT scan was performed and he was found to have thought possible aspiration pneumonia. The thought was that these pulmonary infiltrates were from eosinophilic pneumonia. His IV daptomycin was discontinued on 08 23 and he was started on IV ceftriaxone every 24 hours. He was also changed to linezolid 600 mg twice daily. His PICC line was present from his previous admission and was kept in place. Once the IV daptomycin was discontinued he continued to improve. He was placed on aspirin 325 mg p.o. twice daily for DVT prophylaxis. His Eliquis and Plavix was discontinued. He was allowed out of bed, transfer to a chair. He uses a sliding board. His dressings were changed every couple of days. Wound care nurse was placed for management of his right heel. An Optifoam dressing was applied over that. He was also given waffle boots to prevent any pressure on the heel. His stump dressing was also changed every other day. His incision is clean, dry and intact and healing well. On August 23, 2024 we removed a few sutures of the left leg stump. Encouraged elevation when in bed. He was given his normal diet. Each day he continued to improve. On August 24 he was afebrile and has remained that through today. Denies any significant pain. If he did have pain it was controlled with Tylenol. Appreciate hospitalist and infectious disease input. It was determined on August 25, 2024 he was stable for discharge.His PICC line was removed. He was discharged to [facility] on oral antibiotics; linezolid 600 mg p.o. twice daily until 09/06/2024 and cefpodoxime 400 mg twice daily until 08/31/2024. He was transferred to [facility] in stable condition. He will follow-up with his family physician in the next week to 10 days. He will follow-up with an outpatient infectious disease provider here in [place]. He will follow-up with Dr. Dominguez as scheduled on August 30, 2024. Discharge instructions were reviewed with the patient and provided for [facility]. (2) Postoperative fever: see above (3) Peripheral eosinophilia: see above Plan
[2024-08-25 12:52] VITALS: BP 155/70; PULSE 77; O2SAT 92
--- NOTE | 2024-08-25 13:27 | Hospitalist Progress Note ---
Date of Service August 25, 2024 Assessment & Plan (1) S/P BKA (below knee amputation) unilateral: (2) Post-operative infection: (3) PAD (peripheral artery disease): (4) Diabetic foot ulcer: (5) Type 1 diabetes mellitus with complications: (6) CAD (coronary atherosclerotic disease): (7) Dyslipidemia: (8) Hypertension: (9) Hypothyroidism: Plan Patient is a 79-year-old male with a past medical history of left BKA on 07/04/2024, SIADH, anemia, CAD with Hx of CABG, PAD, carotid stenosis, HTN, DM type I, CKD 3, hypothyroidism who is s/p R second toe amputation on 08/18 with orthopedic surgery. S/p right second toe amputation 08/18 POD 7 Postop pain management/wound care per primary team Hgb was 7.6 on POD 1. Preop was 9.2 Acute on chronic anemia Unlikely blood loss from OR Possible dilutional Considering patient's extensive Hx of cardiovascular disease, got 1 PRBC to get Hgb>8. Hgb currently >8 Anemia workup showed low iron level <10, on iron supplements Intraop Toe culture from 08/18 grew Serratia, Stenotrophomonas, ngoc Blood Cx x2 sets pending from 08/22 with noted increasing leukocytosis, fever and elevated crp. Procal negative Was on IV daptomycin and po cipro per orthopedics. ID consulted, appreciate further recs -[facility] 08[facility]24. Advised the following: -discontinue IV daptomycin due to concern for eosinophilic pneumonia -start po Linezolid for 2 weeks, and Rocephin for aspiration pneumonia noted on chest xray (per ID no need for Flagyl as rocephin covers mouth anaerobes) and serratia noted on toe cx. Recommended -recommended no addition of fluconazole for ngoc noted -can further define chest pathology with CT chest, ordered. Noted pneumonia ID recommended the following for discharge: "Remove PICC Continue linezolid 600 mg PO BID to complete a 6-week course (EOT 09/06/24) for MRSA L BKA infection) Transition ceftriaxone to cefpodoxime 400 mg PO BID to complete a 14-day course (08/1808/31/24) to cover possible aspiration pna and Serratia SSTI of the R foot. 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 Ensure that labs are faxed to PCP and ID clinic (if applicable). Start checking 3 days after discharge Ensure close follow-up with ID (pt recently established with outpatient Sergey QUIÑONEZ), orthopedic surgery, and primary care/SNF physician" Per orthopedic surgery, "Continue Aspirin 325mg twice daily for DVT prophylaxis. May be out of bed to chair using sliding board and right foot on ground for ba johann with post op shoe in place. Keep pressure off heels when in bed, using pillow or waffle boot Elevate left leg and right foot as needed for swelling." While hospitalized, Pain control with tylenol and IV narcotics. Monitor bowel function Senokot scheduled daily per patient's preference Miralax prn constipation Ensure close PCP/[place] followup, as well as close followup with ID and orthopedic surgery. S/p left BKA Postop infection of stump: Was on IV Dapto which was started last admission 07/28 Discontinued as above on 08/23 Per ID continue with po Linezolid and cefpodoxime as noted above Hx SIADH: Hyponatremia Stable Monitor Close PCP and nephrology followup after discharge Hx CAD/CABG/PAD: Hx carotid stenosis/HTN: Follows with vascular surgery Takes Eliquis/Plavixcontinue both when okay with primary team Continue Toprol/amlodipine/Lipitor Hx DM1: Takes lispro and Lantus at home, glycemic consult placed 4 times daily BGM, continue to monitor PCP followup Hx hypothyroidism: Continue levothyroxine Full code DVT prophylaxis: Defer to Surgeon Dispo: Discharged to [facility] Admission and Anticipated Discharge Date Admission Date: August 20, 2024 Subjective patient was seen with at bedside. Was anticipating discharge. Lots of questions answered about next steps. Denied pain, stated he still had no to very little appetite for solid food but would be able to eat soups. Case discussed with both infectious disease and orthopedics in terms of discharge recs. Review of Systems Review of Systems: All systems reviewed & are unremarkable except as noted in Subjective Physical Exam Physical Exam: General: Alert, oriented. No acute distress Psych: Appropriate mood and affect HEENT: NC/AT CV: RRR Resp: Breath sounds clear bilaterally, no increased effort of breathing Abdomen: Soft, nontender Extremities: LLE with noted bandaged stump, RLE with bandaged toes Results & Data Results & Data Vital Signs (Past 12 Hours) Vital Signs Temp Pulse Resp BP Pulse Ox O2 Del Method 08/25/24 12:52 77 155/70 H 92 Room Air 08/25/24 07:40 37.1 C 69 18 137/65 93 Room Air 08/25/24 07:27 Room Air (2) Post-operative infection Encounter type: initial encounter Postoperative infection type: deep incisional surgical site Qualified Code(s): T81.42XA - Infection following a procedure, deep incisional surgical site, initial encounter
[2024-08-25] MEDS: PNEUMOCOCCAL VACCINE (PCV20) 20-VAL CONJ-DIP CRM/PF 0.5 ML SYR IM ONE (14:54)
--- NOTE | 2024-08-25 14:55 | Orthopedic Progress Note ---
Date of Service August 25, 2024 Assessment & Plan (1) Status post amputation of toe of right foot: Plan: s/p Right 2nd toe amputation for osteomyelitis on 08/18/24. 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 Continue Aspirin 325mg twice daily for DVT prophylaxis. May be out of bed to chair using sliding board and right foot on ground for balance with post op shoe in place. Keep pressure off heels when in bed, using pillow or waffle boot Elevate left leg and right foot as needed for swelling. Continue antibiotics as recommended by Infectious Disease - appreciate their input. Currently on Linezolid and Ceftriaxone, IV dapto stopped as of 08/23/24. will discharge on Cefpodoxime 400mg BID to complete by 08/31/24. Case management for disposition needs. Patient aware of need for close follow up with primary physician and outpatient infectious Disease physician Will plan for discharge to [facility] today. Dr. Dominguez present for today's visit Follow up as scheduled. Discharge instructions reviewed. (2) Postoperative fever: Plan: see above (3) Peripheral eosinophilia: Plan: see above Admission and Anticipated Discharge Date Admission Date: August 20, 2024 Subjective Patient sitting in bedside chair. Doing well. No complaints today. Physical Exam Musculoskeletal: Dressings left in place for left leg and right foot. Dressings clean, dry and intact Left leg elevated/supported on pillow Results & Data Vital Signs (Past 12 Hours) Vital Signs Temp Pulse Resp BP Pulse Ox O2 Del Method 08/25/24 12:52 77 155/70 H 92 Room Air 08/25/24 07:40 37.1 C 69 18 137/65 93 Room Air 08/25/24 07:27 Room Air Laboratory Results 08/25/24 08/25/24 08/25/24 Range/Units 11:38 07:39 07:18 WBC 15.96 H (4.8-10.8) K/ul RBC 2.98 L (4.70-6.10) M/uL Hgb 8.8 L (14.0-18.0) g/dl Hct 25.7 L (42.0-52.0) % MCV 86.2 (80.0-100.0) fL MCH 29.5 (25.0-34.0) pg MCHC 34.2 (32.0-36.0) g/dL RDW Std Deviation 45.5 (36.4-46.3) fL RDW Coeff of Swetha 14.3 (11.5-14.5) % Plt Count 445 H (130-400) K/uL MPV 8.7 L (9.4-12.4) fL Immature Gran % (Auto) 0.7 % Neut % (Auto) 68.3 % Lymph % (Auto) 8.2 % [place] % (Auto) 7.7 % Eos % (Auto) 14.7 % Baso % (Auto) 0.4 % Neut # (Auto) 10.91 H (1.40-6.50) K/uL Lymph # (Auto) 1.31 (1.20-3.40) K/uL [place] # (Auto) 1.23 H (0.11-0.59) K/uL Eos # (Auto) 2.34 H (0.00-0.50) K/uL Baso # (Auto) 0.06 (0.00-0.20) K/uL Immature Gran # (Auto) 0.11 (0.01-0.20) K/uL Sodium 129 L (136-145) mmol/L Potassium 3.6 (3.5-5.1) mmol/L Chloride 95 L (98-107) mmol/L Carbon Dioxide 26 (21-32) mmol/L Anion Gap 8 (3-11) BUN 24 H (6-23) mg/dl Creatinine 0.98 (0.6-1.4) mg/dl Est Cr Clr Drug Dosing 52.9 ml/min eGFR 78.44 BUN/Creatinine Ratio 24.5 H (10-20) Glucose 97 (70-99(Fasting)) mg/dl POC Glucose 209 H 109 H (70-99) mg/dl Calcium 8.5 L (8.6-10.3) mg/dl Phosphorus 3.6 (2.5-4.9) mg/dl Magnesium 1.8 (1.7-2.4) mg/dl 08/24/24 08/24/24 Range/Units 20:19 16:48 WBC (4.8-10.8) K/ul RBC (4.70-6.10) M/uL Hgb (14.0-18.0) g/dl Hct (42.0-52.0) % MCV (80.0-100.0) fL MCH (25.0-34.0) pg MCHC (32.0-36.0) g/dL RDW Std Deviation (36.4-46.3) fL RDW Coeff of Swetha (11.5-14.5) % Plt Count (130-400) K/uL MPV (9.4-12.4) fL Immature Gran % (Auto) % Neut % (Auto) % Lymph % (Auto) % [place] % (Auto) % Eos % (Auto) % Baso % (Auto) % Neut # (Auto) (1.40-6.50) K/uL Lymph # (Auto) (1.20-3.40) K/uL [place] # (Auto) (0.11-0.59) K/uL Eos # (Auto) (0.00-0.50) K/uL Baso # (Auto) (0.00-0.20) K/uL Immature Gran # (Auto) (0.01-0.20) K/uL Sodium (136-145) mmol/L Potassium (3.5-5.1) mmol/L Chloride (98-107) mmol/L Carbon Dioxide (21-32) mmol/L Anion Gap (3-11) BUN (6-23) mg/dl Creatinine (0.6-1.4) mg/dl Est Cr Clr Drug Dosing ml/min eGFR BUN/Creatinine Ratio (10-20) Glucose (70-99(Fasting)) mg/dl POC Glucose 229 H 160 H (70-99) mg/dl Calcium (8.6-10.3) mg/dl Phosphorus (2.5-4.9) mg/dl Magnesium (1.7-2.4) mg/dl
== END 2024-08-25 16:14 | DRG 255 ==
LOC: 3W 11:22 → ASU 11:22 → 3W 08-19 13:05

== ENCOUNTER 2024-10-03 07:24 | Inpatient (IN) ==
--- NOTE | 2024-10-02 10:02 | Anesthesiology Consultation ---
Date of Service October 02, 2024 Assessment & Plan (1) Encounter for pre-operative examination: Chart Review Chart Review: Acceptable Risk for Surgery (pending DOS labs and anesthesia evaluation DOS ) and Patient NOT seen in Pre Admission Testing - Discussed leukocytosis, anemia, hyponatremia and abnormal CXR/CT scan with Dr Gonzales. Due to nature of procedure- patient can proceed as scheduled at this time. Will repeat CBC with diff and PRP DOS. Will leave to anesthesiologist's discretion if repeat CXR needed - Check BSG AM DOS Wheelchair bound -Infectious Disease screening: Per PAT nursing assessment on 10/02/24. No known infectious disease contacts in past 10 days or current infectious disease symptoms. No recent travel outside the country. Right 2nd toe amputation 08/18/24= Done under [place] with LMA #4 (iGel) (had postoperative fevers and leukocytosis due to osteomyelitis; concern for daptomycin related drug reaction including possible eosinophilic pneumonia per 08/25/24 [place] Discharge Summary) Medical clearance 06/29/24 [facility] (prior to left BKA 07/04/24) : "...L BKA...cleared to proceed with surgery...low medical risk..." Last seen by cardio 05/03/24: "...small vessel disease and asx carotid disease...severe small vessel disease with 3-vessel runoff not requiring intervention...developed left foot wounds about 8 weeks ago...dry gangrene of the left foot...repeat carotid doppler in 1 year..." History Surgery Operation Date: 10/03/24 09:20 Proposed Procedures p Right Second Toe Amputation - Marquis Dominguez MD Height/Weight Height: 5 ft 6 in Weight: 61.235 kg Allergies Allergy/AdvReac Type Severity Reaction Status Date / Time tramadol Allergy Severe horrible Verified 10/02/24 10:56 experience>muscle stiffness, low bs amoxicillin [From Augmentin] AdvReac Severe Vomiting Verified 10/02/24 10:56 clavulanic acid AdvReac Severe Vomiting Verified 10/02/24 10:56 [From Augmentin] codeine AdvReac Severe Vomiting Verified 10/02/24 10:56 sulfamethoxazole AdvReac Severe Vomiting Verified 10/02/24 10:56 [From Bactrim] trimethoprim [From Bactrim] AdvReac Severe Vomiting Verified 10/02/24 10:56 Medications Home Medications Medication Instructions Recorded Confirmed Last Taken atorvastatin 40 mg tablet (Lipitor) 40 mg PO 1700 08/24/19 10/02/24 08/17/24 17:00 cholecalciferol (vitamin D3) 50 2,000 units PO 1200 #90 caps 08/24/19 10/02/24 08/17/24 12:00 mcg (2,000 unit) capsule coenzyme Q10 100 mg capsule 100 mg PO QPM 08/24/19 10/02/24 08/17/24 17:00 levothyroxine 50 mcg tablet 50 mcg PO QAM #90 tabs 08/24/19 10/02/24 08/18/24 08:30 fhaxpacg-mccbfbvb-snixc acid 400 1 tab PO DAILY 08/24/19 10/02/24 08/17/24 18:00 mcg-vit K 20 mcg-lycop 300 mcg tablet (One-A-Day Men's Multivitamin) alendronate 35 mg tablet 35 mg PO WK 05/22/24 10/02/24 08/13/24 cetirizine 10 mg tablet (Allergy 10 mg PO QPM 05/22/24 10/02/24 08/17/24 17:00 Relief (cetirizine)) insulin glargine 100 unit/mL 18 unit subcut QAM 05/22/24 10/02/24 08/18/24 08:30 subcutaneous solution (Lantus 9 units U-100 Insulin) insulin lispro 100 unit/mL See Rx Instructions subcut .COMPLEX 05/22/24 10/02/24 08/18/24 08:30 subcutaneous pen (Humalog KwikPen 2 units (U-100) Insulin) timolol 0.25 % eye drops 1 drp ophthalmic (eye) BID 05/22/24 10/02/24 08/18/24 09:30 brimonidine 0.1 % eye drops 1 drp ophthalmic (eye) BID 06/27/24 10/02/24 08/18/24 09:00 (Alphagan P) amlodipine 2.5 mg tablet 2.5 mg PO 1200 06/29/24 10/02/24 08/17/24 12:00 metoprolol succinate 50 mg 50 mg PO QAM 06/29/24 10/02/24 08/18/24 08:30 tablet,extended release 24 hr acetaminophen 500 mg tablet 1,000 mg (2 x 500 mg) PO Q8H PRN 07/07/24 10/02/24 Unknown (Tylenol Extra Strength) pain #30 tabs docusate sodium 100 mg capsule 100 mg PO BID PRN Constipation 08/11/24 10/02/24 Unknown ferrous sulfate 325 mg (65 mg 325 mg PO QAM #14 tabs 08/22/24 10/02/24 Unknown iron) tablet,delayed release ProSource 1 ea PO DAILY 10/02/24 10/02/24 Unknown aspirin 81 mg tablet,delayed 81 mg PO HS 10/02/24 10/02/24 Unknown release cefpodoxime 100 mg tablet 200 mg PO BID 10/02/24 10/02/24 Unknown doxycycline hyclate 100 mg tablet 100 mg PO BID 10/02/24 10/02/24 Unknown nut.tx.gluc.intol,lac-free,soy 1 ea PO DAILY 10/02/24 10/02/24 Unknown (Glucerna oral liquid) Past Medical History Medical History (Updated 10/02/24 @ 12:07 by Lena Stroud PA-C) Anemia pt given 1 unit PRBCs during 07/25/24-07/28/24 hospital admission - pt unsure if 2nd infusion done CAD (coronary artery disease) s/p 4 vessel CABG 2004 [facility] Carotid artery stenosis asymptomatic; <50% B/L - [facility] Chronic kidney disease stage 3 - no cardiac exercise specialist Diabetic foot ulcers current: necrosis R 2nd toe and R heel would; following with wound care. 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/peroneal; Discharged on DOAC (DOAC D/C at 08/11/24 vascular visit; pt to replace with [id number] daily) SIADH (syndrome of inappropriate ADH production) pt had hyponatremia during 06/2024 hospital stay and nephro consulted; per note, 'likely due to to SIADH'; pt started on urea 15g daily but pt did not continue taking at hospital D/C Type 1 diabetes IDDM Past Family History Family History Father Gout Other No family history of adverse response to anesthesia Past Surgical History Surgical History (Updated 10/02/24 @ 12:07 by Lena Stroud PA-C) Amputation of toe of right foot - history of right partial big toe amputation - right 2nd toe amputation 08/18/24= Done under [place] with LMA #4 (iGel) History of amputation (07/26/24) I&D, left bka revision: LMA#4 iGel; pt remains on IV abx and following with wound care (due to stump infection) History of cardiac cath (09/2003) at [facility]. 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 S/P eye surgery retinopexy bilateral laser surgery S/P PICC central line placement no longer has Social History Smoking Status: Never smoker Do You Dip or Chew Tobacco: No Hx Alcohol Use: No alcohol intake frequency: holidays/special occasions only Hx Substance Use: No substance use type: does not use Lab Results Anesthesia Preop Results Results Anesthesia Widget: WBC 15.96 K/ul (4.8-10.8) H 08/25/24 Hgb 8.8 g/dl (14.0-18.0) L 08/25/24 Hct 25.7 % (42.0-52.0) L 08/25/24 Plt 445 K/uL (130-400) H 08/25/24 Na 129 mmol/L (136-145) L 08/25/24 K 3.6 mmol/L (3.5-5.1) 08/25/24 Cl 95 mmol/L (98-107) L 08/25/24 CO2 26 mmol/L (21-32) 08/25/24 BUN 24 mg/dl (6-23) H 08/25/24 Creat 0.98 mg/dl (0.6-1.4) 08/25/24 Glucose Level 97 mg/dl (70-99(Fasting)) 08/25/24 POC Glucose 209 mg/dl (70-99) H 08/25/24 Urine Color Yellow 08/22/24 Urine Appearance Clear (Clear) 08/22/24 Urine pH 5.5 (4.5-7.5) 08/22/24 Urine Specific [place] 1.021 (1.000-1.030) 08/22/24 Urine Protein 2+ (Negative) H 08/22/24 Urine Glucose (UA) Negative (Negative) 08/22/24 Urine Ketones Negative (Negative) 08/22/24 Urine Blood Negative (Negative) 08/22/24 Urine Nitrite Negative (Negative) 08/22/24 Urine Bilirubin Negative (Negative) 08/22/24 Urine Urobilinogen Negative (Negative) 08/22/24 Urine Leukocyte Esterase Negative (Negative) 08/22/24 Urine WBC (Auto) 0-5 /hpf (0-5) 08/22/24 Urine RBC (Auto) 0-2 /hpf (0-2) 08/22/24 Urine Hyaline Casts (Auto) 0-2 /lpf (0-2) 08/22/24 Urine Epithelial Cells (Auto) 0-2 /hpf (0-2) 08/22/24 Urine Bacteria (Auto) None Seen (None Seen) 08/22/24 Blood Type O Negative 08/19/24 Antibody Screen NEGATIVE 08/19/24 Testing Laboratory Results Elevated WBC - since at least 05/2024- will repeat CBC with diff DOS Anemia- since at least 05/2024- Hgb fluctuating 7-10- will check CBC with diff DOS Hyponatremia- chronic since at least 05/2024- Na 127 on 08/24/24- will repeat DOS (presumed hx of SIADH per records) 07/06/24= TSH: 3.417 (WNL) Electrocardiogram Date: 08/23/24 Findings: + NSR @ (76bpm) RBBB Chest X-Ray Date: 08/22/24 FINDINGS: Median sternotomy wires are unchanged. Left PICC terminates in the mid SVC. The cardiomediastinal silhouette is normal. Previously noted left airspace opacities have resolved. There are now airspace opacities in the right midlung. No evidence of pleural effusion or pneumothorax. IMPRESSION: Airspace opacity in the right midlung is compatible with aspiration/pneumonia. Echocardiogram Date: 04/05/24 EF: 55-60% LV Function: normal RWMA: + none Thickened mitral valve with mild-mod MR. Mild TR. (Diastolic function could not be assessed due to mitral annular calcification) Other Testing Chest CT 08/23/24= IMPRESSION: 1. Multifocal pneumonia within the right greater than left lungs. Follow-up imaging to document resolution recommended after treatment course. 2. Mild likely reactive mediastinal lymphadenopathy with trace pleural effusions. 3. Satisfactory positioning of the left-sided PICC. (Chest CT done while inpatient at [facility]- patient was asymptomatic but treated with ceftriaxone as inpatient and discharged on cefpodoxime per 08/25/24 discharge summary) Lower Extremity Arterial Duplex Evaluation 08/11/24: 1 Patent RLE arterial system from distal external iliac through popliteal artery with multiphasic waveforms. 2. Patent RT ALETHA, [employer] and proximal Peroneal arteries 3. RT second digit borderline adequate for healing (55mmHg) 4. No prior study for comparison Carotid Doppler 05/03/24: The Right CCA appears normal. The Right ECA orifice appears normal. There is heterogeneous plaque visualized in the proximal R ICA. The R ICA peak systolic flow velocity is 69cm/s, end diastolic velocity of 14cm/s. Doppler criteria suggest <50% stenosis range. The Right vertebral artery flow is antegrade with decreased flow. The Left CCA appears normal. The Left ECA orifice appears normal. There is mild heterogeneous plaque visualized in the proximal Left ICA. The L ICA peak systolic flow velocity is 106cm/s, end diastolic velocity of 22cm/s. Doppler criteria suggest <50% stenosis range. The Left vertebral artery flow is antegrade. B/L LE Angio 06/05/14: Summary: 1. Left lower extremity --40% distal popliteal (no pullback gradient), 100% distal ALETHA occlusion at level of the ankle. Peroneal tapers prior to ankle and gives collaterals to pedal vessels. Distal [employer] into the foot with diffuse disease. Small diffusely diseased pedal vessels with limited flow to the toes. 2. Angioplasty of distal ALETHA into the foot with limited pedal outflow 3. Angioplasty of acute thrombotic occlusion of mid peroneal artery with 2.0 balloon Recommendations: With likely distal thrombus impacting flow through small diffusely diseased pedal vessels will admit for IV heparin administration overnight. Plan for discharge on DOAC No other real options for further revascularization. Follow-up noninvasive testing in 1 to 2 week
[2024-10-03 08:01] LABS: Basophils # (auto) 0.07 K/uL (0.00-0.20); Basophils % (auto) 0.8 %; Eosinophils # (auto) 0.46 K/uL (0.00-0.50); Eosinophils % (auto) 5.2 %; Hematocrit (blood only) 35.4 % (42.0-52.0); Hemoglobin 11.7 g/dl (14.0-18.0); Immature Granulocytes # (auto) 0.02 K/uL (0.01-0.20); Immature Granulocytes % (auto) 0.2 %; Lymphocytes % (auto) 28.3 %; Mean Corpuscular Hemoglobin 30.3 pg (25.0-34.0); Mean Corpuscular Hgb Conc 33.1 g/dL (32.0-36.0); Mean Corpuscular Volume 91.7 fL (80.0-100.0); Mean Platelet Volume 9.4 fL (9.4-12.4); Monocytes # (auto) 0.86 K/uL (0.11-0.59); Monocytes % (auto) 9.7 %; Neutrophils # (auto) 4.92 K/uL (1.40-6.50); Neutrophils % (auto) 55.8 %; Platelet Count 293 K/uL (130-400); RDW Standard Deviation 54.3 fL (36.4-46.3); Red Blood Count 3.86 M/uL (4.70-6.10); White Blood Count 8.83 K/ul (4.8-10.8)
[2024-10-03] MEDS: LR 15ML/HR IV SCH (08:15)
[2024-10-03 08:19] LABS: BUN Creatinine Ratio 40.2 (10-20); Calcium 9.5 mg/dl (8.6-10.3); Creatinine Clr Calc Pharmacy 42.2 ml/min; Potassium 4.2 mmol/L (3.5-5.1)
[2024-10-03] MEDS: LACTATED RINGER'S 1,000 ML IV SCH (08:24)
[2024-10-03] MEDS: VANCOMYCIN HCL 1,000 MG/270 ML BAG IV SCH ×2 (08:40→15:21)
--- NOTE | 2024-10-03 09:38 | History & Physical Bridge Note ---
Date of Service October 03, 2024 History & Physical Bridge Note I have examined the patient, reviewed the History & Physical and in the interval since the performance of the History & Physical I have noted the following changes of clinical significance: no changes noted
[2024-10-03] MEDS ORDERED: fentaNYL citrate PF 100 MCG/2 ML VIAL ONE (09:59)
[2024-10-03] MEDS ORDERED: PROPOFOL IV EMULSION 10 MG/ML 20 ML VIAL IV ONE ×3 (10:00→11:18)
[2024-10-03] MEDS ORDERED: LIDOCAINE 2% 2 ML VIAL/AMP(20MG/ML) INFIL ONE ×2 (10:17)
--- OUTSIDE RECORDS SUMMARY | 2024-10-03 10:50 | External Medical Summary | Summary of Care ---
Author Name Unknown Organization [facility] Address [address] [place] [address] Phone [phone] Care Team Providers Care In File Operator Name Role Phone Louisa Quiroga DO Primary Care Provider [phone]- [phone] Reason for Visit * Reason Onset Date Comments Medication Refill 09/22/2024 Encounter Details Date Type Department Care Team (Late st Contact Info) Description 09/22/2024 Refill [facility] [place] [address] [place] [address] Louisa Quiroga DO [address] [place] [address] Allergies Active Allergy Reactions Criticality Noted Date Comments Amoxicillin Nausea/vomiting 02/12/2023 Morphine And Codeine Nausea/vomiting Low 02/28/2010 Pollen 02/28/2010 Guaifenesin-Codeine Nausea/vomiting Low 02/28/2010 Sulfamethoxazole-Trimethoprim Nausea/vomiting 0 06/17/2018 documented as of this encounter (statuses as of 09/22/2024) Medications Medication Sig Dispensed Refills Start Date [...] of less than 7.0% ([facility]) Sliding scale 8-12 units prior to meals 4 Each 5 06/15/2023 Active Insulin Syringe-Needle U-100 31G X 1/4" 0.3 MLIndications:Diabete s mellitus with background retinopathy ([facility]) Use as directed. For use of insulin up to 4 times daily 400 Each 3 07/24/2023 Active Metoprolol Succinate ER 50 MG Oral Tablet Extended Release 24 Hour (toPROL XL) TAKE 1 TABLET BY MOUTH IN THE MORNING 90 Tablet 1 02/08/2024 Active Vitamin D3 250 MCG (33341 UT) Oral Tablet (Cholecalciferol) Take 1 Tablet by mouth every evening. Active Timolol Maleate 0.25 % Ophthalmic Solution (Timoptic) Instill 1 Drop into both eyes in the morning and 1 Drop before bedtime. 07/07/2023 Active Pen [place] 31G X 5 MMIndications:Type 1 diabetes mellitus with hemoglobin A1c goal of less than 7.0% ([facility]) Use as directed. 400 Each 3 03/14/2024 [...] as of this encounter (statuses as of 09/22/2024) Active Problems Problem Noted Date Diagnosed Date [...] as of this encounter (statuses as of 09/22/2024) Resolved Problems Problem Noted Date Diagnosed Date Resolved Date RENAL INSUFFICIENCY 07/08/2010 03/02/20 24 documented as of this encounter (statuses as of 09/22/2024) Immunizations Name Administration Dates Next Due COVID-19 mRNA, LNP-s, No Pre serve, 2-Dose Series (Pfizer) 09/05/2021,01/30/2021,01/03/2021 DTaP Dipth/Tet/Acell Pertussis (Infanrix), Peds 04/13/2022 Pneumococcal Conjugate Vacc, 13 Valent (Prevnar) 07/29/2016 Pneumococcal Polysaccharide PPV23 (Pneumovax) 10/11/2014,11/22/2003 RSV Vac., Recomb, Adjuvant, PF,0.5 Ml (Arexvy) 10/08/2023 SARS-COV-2 (COVID-19) Vaccin e Unspecified 08/21/2022 Seasonal Influenza Vac., MDV , IM, 0.5 mL (Fluzone) 09/03/2021,09/02/2020,08/30/2019,07/29,08/28/2015,08/01/2013,08/24/2011 ,09/10/2009,10/13/2004 Seasonal Influenza, Quadriva lent Hd (Fluzone Hd) 08/09/2023 Seasonal Influenza, Quadrivalent, ID 07/2019,07/29/2016,08/28/2015,08/01,08/24/2011,09/10/2009,10/13/2004 Seasonal Influenza, Recombin ant, RIV4, PF, (Flublock) 09/02/2022,09/03/2021,09/02/2020,08/30 TD, Preservative Free 11/22/1997 TDAP, Age 7 [...] as of this encounter Miscellaneous Notes * Addendum Note - Maribel Greenwood LPN - 09/22/2024 3:08 PM EDTAddended by: MARIBEL GREENWOOD on: 09/22/2024 03:08 PM Modules accepted: Orders * Telephone Encounter - JorgeMaribel ARNALDO Gaines - 09/22/2024 3:07 PM EDT Pending Prescriptions: Disp Refills Insulin Syringe-Needle U-100 30G X 3/16" *300 Ea*3 Sig: Use as directed. Last Visit: 03/02/2024 (in office), Visit date not found (telemedicine) Next Visit: 09/28/2024 Last date the medication was ordered: Patient Active Problem List Diagnosis CAD-S/PCABGX4 Dyslipidemia, goal LDL below 70 ASCVD (arteriosclerotic cardiovascular disease) Diabetes mellitus with background retinopathy (HCC) E.D. GLAUCOMA OSTEOARTHRITIS HYPERKALEMIA CATARACTS Type 1 diabetes mellitus with hemoglobin A1c goal of less than 7.0% (HCC) Anemia Horseshoe kidney BIILAT INGUINAL HERNIA Anal fistula BPH Carotid stenosis, asymptomatic, bilateral CKD stage 3 due to type 1 diabetes mellitus (HCC) Diabetic retinopathy associated with type 1 diabetes mellitus (HCC) Essential hypertension Glaucoma Hypothyroidism Nonrheumatic aortic valve stenosis Peripheral vascular disease (HCC) Posterior vitreous detachment of left eye Postsurgical aortocoronary bypass status Right bundle branch block Pure hypercholesterolemia Type 1 diabetes mellitus with hyperglycemia (HCC) Osteopenia Labs: Lab Results Component Value Date/Time CREATININE - [facility] 1.10 08/16/2024 12:00 AM CREATININE - [facility] 1.22 05/17/2024 12:54 PM CREATININE - [facility] 1.2 04/09/2011 10:44 AM CREATININE, RANDOM URINE - [facility] 38 03/02/2024 10:30 AM CREATININE, RANDOM URINE - [facility] 139 04/09/2011 10:44 AM Lab Results Component Value Date/Time POTASSIUM - [facility] 4.2 08/16/2024 12:00 AM POTASSIUM - [facility] 4.4 05/17/2024 12:54 PM POTASSIUM - [facility] 5.6 (H) 04/09/2011 10:44 AM Lab Results Component Value Date/Time TSH - [facility] 1.51 08/01/2024 06:02 AM Lab Results Component Value Date/Time LDL (CALCULATED)-[facility] 62 02/25/2022 12:00 AM LDL (CALCULATED)-[facility]TSIDE LAB 56 10/28/2010 12:00 AM LDL CHOLESTEROL (CALCULATED) - [facility] 58 03/02/2024 10:30 AM LDL CHOLESTEROL (CALCULATED) - [facility] 74 06/15/2023 12:11 PM LDL CHOLESTEROL-[facility] 62 02/25/2022 08:14 AM LDL CHOLESTEROL-OUTSIDE LAB 64 02/28/2021 03:00 PM Lab Results Component Value Date/Time ALT - [facility] 31 03/02/2024 10:30 AM Hemoglobin AIC Results: Lab Results Component Value Date/Time HEMOGLOBIN A1C - [facility] 7.3 (H) 03/02/2024 10:30 AM HEMOGLOBIN A1C - [facility] 8.1 (H) 06/15/2023 12:11 PM HEMOGLOBIN A1C - [facility] 9.9 (H) 04/09/2011 10:44 AM * Telephone Encounter - Miriam Bowens PHARM Tech - 09/22/2024 2:51 PM EDT Pt calling to request new needles.Pt asking for BD Auto Shield 0.03 mil / 5 mil X 30 barby by 02/04. Pt was just relased from rehab and these are the needles he is looking for. Please send a script to [facility]- [place] Thank you, Miriam Bowens CPhT Thermostat Repairer II [facility] 09/22/2024,2:53 PM documented in this encounter Plan of Treatment Upcoming Encounters Date Type Department Care Team (Late st Contact Info) Description 09/28/2024 1:40 PM EST Office Visit Family Practice [address] [place] [address] Louisa Quiroga DO [address] [place] [address] Health Maintenance Due Date Last Done Comments Hepatitis C Screening 1963 Adult Wellness Visit 2011 Diabetic Foot Exam 05/15/2012 05/15/2011, 06/02/2010 CKD PHOS USE SMARTSET 14467 06/15/2024 06/15/2023 COVID-19 Vaccine ( season) 2024 09/20/2023, 08/21/2022, 09/05/2021, Additional history exists Influenza Vaccine (FLU shot) (#1) 2024 08/09/2023, 09/02/2022, 09/03/2021, Additional history exists HbA1c 09/01/2024 03/02/2024, 05/23, 09/03/2022, Additional history exists Diabetic Eye Exam 11/10/2024 11/10/2023, , 08/22/2021, Additional history exists GFR 02/13/2025 08/16/2024, 07/23, 07/29/2024, Additional history exists Albumin/Creatinine Ratio 03/02/2025 024, 06/15/2023, 02/25/2022, Additional history exists Depression Monitoring 06/29/2025 06/29/2024, 024 TSH 08/01/2025 08/01/2024, 02/20, 06/15/2023, Additional history exists CKD HGB USE SMARTSET 16035 08/16/202508/16, 08/05/2024, 07/29/2024, Additional history exists DTap/Tdap Vaccines (3 - [...] filedocumented as of this encounter Care Teams In File Operator Relationship Specialty Start Date End Date Louisa Quiroga DO [address] [facility] [place] [address] PCP - General Family Medicine 07/03/24 documented as of this encounter
--- OUTSIDE RECORDS SUMMARY | 2024-10-03 10:50 | External Medical Summary | Summary of Care ---
Author Name Unknown Organization [facility] Address [address] [place] [address] Phone [phone] Care Team Providers Care Transmission Assembler Name Role Phone Louisa Quiroga DO Primary Care Provider [phone]- [phone] Reason for Visit * Reason Onset Date Comments Medication Refill 09/22/2024 Encounter Details Date Type Department Care Team (Late st Contact Info) Description 09/22/2024 Refill [facility] [address] [place] [address] Louisa Quiroga DO [address] [place] [address] Allergies Active Allergy Reactions Criticality [...] A1c goal of less than 7.0% ([facility]) Sliding scale 8-12 units prior to meals 4 Each 5 06/15/2023 Active Insulin Syringe-Needle U-100 31G X 1/4" 0.3 MLIndications:Diabete s mellitus with background retinopathy ([facility]) Use as directed. For use of insulin up to 4 times daily 400 Each 3 07/24/2023 Active Metoprolol Succinate ER 50 MG Oral Tablet Extended Release 24 Hour (toPROL XL) TAKE 1 TABLET BY MOUTH IN THE MORNING 90 Tablet 1 02/08/2024 Active Vitamin D3 250 MCG (79812 UT) Oral Tablet (Cholecalciferol) Take 1 Tablet by mouth every evening. Active Timolol Maleate 0.25 % Ophthalmic Solution (Timoptic) Instill 1 Drop into both eyes in the morning and 1 Drop before bedtime. 07/07/2023 Active Pen [place] 31G X 5 MMIndications:Type 1 diabetes mellitus with hemoglobin A1c goal of less than 7.0% ([facility]) Use as directed. 400 Each 3 03/14/2024 [...] send a script to [facility]- [place] Thank you, Miriam Bowens CPhT Costing Analyst II [facility] 09/22/2024,2:53 PM documented in this encounter Plan of Treatment Upcoming Encounters Date Type Department Care Team (Late st Contact Info) Description 09/28/2024 1:40 PM EST Office Visit Family Practice [address] [place] [address] Louisa uQiroga DO [address] [place] [address] Health Maintenance Due Date Last Done Comments Hepatitis C Screening 1963 Adult Wellness Visit 2011 Diabetic Foot Exam 05/15/2012 05/15/2011, 06/02/2010 CKD PHOS USE SMARTSET 48992 06/15/2024 06/15/2023 COVID-19 Vaccine ( season) 2024 [...] Additional history exists CKD HGB USE SMARTSET 16595 08/16/202508/16, 08/05/2024, 07/29/2024, Additional history exists DTap/Tdap [...] filedocumented as of this encounter Care Teams Transmission Assembler Relationship Specialty Start Date End Date Louisa Quiroga DO [address] [facility] [place] [address] PCP - General Family Medicine 07/03/24 documented as of this encounter
--- OUTSIDE RECORDS SUMMARY | 2024-10-03 10:50 | External Medical Summary | Continuity of Care Document ---
Author Name Unknown Organization [facility] [address] [place], [place] [address]A Address [address] [place] [phone] Care Team Providers Care Rn Complex Care Name Role Phone Louisa Quiroga Primary Care Physician [phone] [facility]counter [facility] [id number] Date(s): 09/29/24 - 09/29/24 [facility] [address] [place] [id number] [place] [id number] Encounter Diagnosis Ischemic necrosis of foot(Discharge Diagnosis) - 09/29/24 PAD (peripheral artery disease)(Discharge Diagnosis) - 09/29/24 Pressure ulcer of heel(Discharge Diagnosis) - 09/29/24 Hx of BKA(Discharge Diagnosis) - 09/29/24 Discharge Disposition: Home or Self Care Attending Physician: MD Angelica, Marquis Rodríguez Allergies, Adverse Reactions, Alerts Substance Criticality Severity Reaction Reaction Severity Status codeine Amoxicillin vomiting Active traMADol low blood sugar , stiff, dizzy Active amoxicillin vomiting Active Augmentin vominting Active Medications alendronate 35 mg oral tablet Start: 06/26/24 4:01:00 PM EDT Start Date: 06/26/24 Status: Ordered amLODIPine 2.5 mg oral tablet Start: 06/26/24 4:00:00 PM EDT Start Date: 06/26/24 Status: Ordered aspirin 81 mg oral capsule Start: 08/16/24 1:08:00 PM EDT Start Date: 08/16/24 Status: Ordered atorvastatin 80 mg oral tablet Start: 06/26/24 4:00:00 PM EDT Start Date: 06/26/24 Status: Ordered cefpodoxime 100 mg oral tablet Start: 09/29/24 12:41:00 PM EST, 2 tab, PO, q12h, Disp# 15 tab, Refills: 1, [facility]: [id number] Start Date: 09/29/24 Status: Ordered Co-Q10 100 mg oral capsule Start: 09/29/24 11:32:00 AM EST, 1 cap, PO, Daily Start Date: 09/29/24 Status: Ordered CoQ10 Start: 06/26/24 4:02:00 PM EDT Start Date: 06/26/24 Status: Ordered doxycycline hyclate 100 mg oral capsule Start: 09/29/24 12:41:00 PM EST, 1 cap, PO, bid, Disp# 10 cap, Refills: 1, [facility]acy: [id number] Start Date: 09/29/24 Stop Date: 10/09/24 Status: Ordered ferrous sulfate 325 mg (65 mg elemental iron) oral delayed release tablet Start: 09/29/24 11:31:00 AM EST, 1 tab, PO, Daily Start Date: 09/29/24 Status: Ordered HumaLOG KwikPen 100 units/mL injectable solution Start: 06/26/24 4:01:00 PM EDT, 4 unit = Start Date: 06/26/24 Status: Ordered insulin glargine (Lantus) Start: 06/26/24 4:03:00 PM EDT Start Date: 06/26/24 Status: Ordered levothyroxine 50 mcg (0.05 mg) oral tablet Start: 06/26/24 4:01:00 PM EDT Start Date: 06/26/24 Status: Ordered linezolid 600 mg oral tablet Start: 08/30/24 2:44:00 PM EDT, 1 tab, PO, q12h Start Date: 08/30/24 Status: Ordered Metoprolol Succinate ER 50 mg oral tablet, extended release Start: 06/26/24 4:01:00 PM EDT Start Date: 06/26/24 Status: Ordered timolol maleate 0.25% ophthalmic solution Start: 06/26/24 4:01:00 PM EDT Start Date: 06/26/24 Status: Ordered traMADol 50 mg oral tablet Start: 06/26/24 4:00:00 PM EDT Start Date: 06/26/24 Status: Ordered Mental Status 09/29/24 Barriers to Learning one year None evide nt Mandatory Health Literacy Documentation Yes Health Literacy Communication Barriers N ever Primary Language Guatemalan Problem List Condition Confirmation Course Effective Dates Status Health St atus Informant Ischemic necrosis of foot Confirmed Active PAD (peripheral artery disease) Confirmed Active Pressure ulcer of heel Confirmed Active Diagnosis Diagnosis Type Effective Dates Health Status Cl inical Service Informant Ischemic necrosis of foot Discharge Diagnosis 09/29/24 Non-Specified Pressure ulcer of heel Discharge Diagnosis 09/29/24 Non-Specified PAD (peripheral artery disease) Discharge Diagnosis 09/29/24 Non-Specified Hx of BKA Discharge Diagnosis 09/29/24 Non-Specified Procedures Procedure Date Related Diagnosis Body Site Status Amputation below-knee 1 07/04/24 C ompleted 1Left Vital Signs Most recent to oldest [Reference Range]: 1 Height 167.5 cm (09/29/24 11:32 AM) Patient Weight 61.3 kg (09/29/24 11:32 AM) Body Mass Index 21.85 kg/m2 (09/29/24 11:32 AM) Temperature [36.5-37.9 DegC] 36.6 DegC (09/29/24 11:32 AM) Heart Rate 68 bpm (09/29/24 11:32 AM) Blood Pressure 128/60mmHg (09/29/24 11:32 AM) Social History Social History Type Response Smoking Status Never smoked cigaret luana Sex Male Sex Representation Male (finding) Ortho Outpt Note * MD Angelica, Marquis S: PERFORM Event Display: Ortho Outpt Note Authored Date: [id number] Name:JUSTIN BARNES Patient Number:[id number] :1945 Date of Service:09/29/2024 Follow-upbilateral legs. He is at home. Off antibiotics. Getting PT at home. Functioning much better. The heel is being coated with Betadine. He was previously seen at [facility] wound care and does not have any 1 watching this now. The toeright foot#2 was amputated August 18. The BKA was done July 04 with a revision secondary to infection July 26. [facility] He was to follow-up as needed. Labs done September 18 white count [id number] hematocrit 31sed rate was 41 which is increased from 25 previously. CRP was 0.36 which is within normal limits. His PRPis noted. Low protein which she is working onwith nutrition supplements. BUN 42. Examination of theleft BKA stump shows that it is completely healed there is noswelling rednesserythema wound breakdown or drainage. No tenderness. He has good range of motionof theknee joint. Examination of the right heel reveals a15 mm x 12 mmblack eschar over the heel. There is no surrounding erythema. No drainageandno exposed bone. Evaluation of the right second toe reveals a thick black eschar over the surgical site area. There is noredness drainage or swelling. The impression is arevisionleft BKA secondary to infection with MRSA. Right heel wound and a right foot second toeamputation secondary to ischemia. Plan:He may consider using a knee scooter for short distances. [facility]. We can refer back to the prosthetists for evaluation and consideration ofleft lower extremity prosthesis. I discussed with him that there are many obstacles to overcomeincluding gettinga good fit without causing skin breakdown and then finding enoughenergy to be able to ambulate with a prosthesis. It has been 6 weeks and the eschar on theright second toe is present. We could leave alone or so can try to remove. Hopefully healed underneath. He consented to this and after soak I peeled back theblack eschar which was essentially a full-thickness necrosis of the wound margins. Upon removing this the distal portion of the proximal phalanx was visible within the wound area. There is a posteriorskin bleeder which was cauterizedwith silver nitrate. There was some mucinous materialprobably loculatedpurulenceunderneath the black escharhowever the remainder of the tissue appeared healthy. Unfortunately this has not healed. This was just a thick black eschar. Wet to dry dressing. Will restart on thedoxycycline andcefpodoxime. Prophylactic. Recommendrevisiontoe amputation Wednesday or Wednesday and he agrees to proceed. Overnight stay. Treatment options risks benefits discussed. May need to do a partial second ray resection based uponsoft tissue closure. Unfortunatelythis distalamputation did not heal. Will move a little bit more proximal. Hopefully we can gethealing at that level. Small chance for something like a wound VAC. Preop today. Iobtained informed consent. There is not adequate tissue presently to cover over the distal phalanx. Electronic Signature on File Electronically Reviewed/Signed by: Marquis Dominguez MD Author Signature Dt/Tm:09/29/2024 03:53 PM Division of Sports Medicine PSS Patient Care team information Care Team Personnel Name: DO Quiroga Jessie L Position: Referring DIRECT Member Role: Primary Care Provider Address: [address] [address]
--- OUTSIDE RECORDS SUMMARY | 2024-10-03 10:50 | External Medical Summary | Summary of Care ---
Author Name Unknown Organization [facility] Address [address] [place] [address] Phone [phone] Care Team Providers Care Skein Straightener Name Role Phone Louisa Quiroga DO Primary Care Provider [phone] Reason for Visit * Reason Onset Date Comments Hospital Follow-Up Pt reports fo r discharge from , limited due to mobility, denies pain, bowels moving, looking forward to prosthesis, sees the surgeon tomorrow, has records with him Hospital Follow-Up 09/28/2024 Encounter Details Date Type Department Care Team (Late st Contact Info) Description 09/28/2024 1:40 PM EST Office Visit [facility] [address] [place] [address] Louisa Quiroga DO [address] [place] [address] Hospital discharge follow-up*; Status post below-knee amputation of left lower extremity (HCC); Type 1 diabetes mellitus with hemoglobin A1c goal of less than 7.0% (HCC); Peripheral vascular disease (HCC) Allergies Active Allergy Reactions Criticality Noted Date Comments Amoxicillin Nausea/vomiting 02/12/2023 Morphine And Codeine Nausea/vomiting Low 02/28/2010 Pollen 02/28/2010 Guaifenesin-Codeine Nausea/vomiting Low 02/28/2010 Sulfamethoxazole-Trimethoprim Nausea/vomiting 0 06/17/2018 documented as of this encounter (statuses as of 09/28/2024) Medications Medication Sig Dispensed Refills Start Date [...] hemoglobin A1c goal of less than 7.0% ([facility]) Sliding scale 8-12 units prior to meals 4 Each 5 06/15/2023 Active Insulin Syringe-Needle U-100 31G X 1/4" 0.3 MLIndications:Diabete s mellitus with background retinopathy (HCC) Use as directed. For use of insulin up to 4 times daily 400 Each 3 07/24/2023 Active Metoprolol Succinate ER 50 MG Oral Tablet Extended Release 24 Hour (toPROL XL) TAKE 1 TABLET BY MOUTH IN THE MORNING 90 Tablet 1 02/08/2024 Active Vitamin D3 250 MCG (17611 UT) Oral Tablet (Cholecalciferol) Take 1 Tablet by mouth every evening. Active Timolol Maleate 0.25 % Ophthalmic Solution (Timoptic) Instill 1 Drop into both eyes in the morning and 1 Drop before bedtime. 07/07/2023 Active Pen Shafter 31G X 5 MMIndications:Type 1 diabetes mellitus with hemoglobin A1c goal of less than 7.0% (HCC) Use as directed. 400 Each 3 03/14/2024 [...] THE MORNING 90 Tablet 2 07/09/2024 Active Insulin Syringe-Needle U-100 30G X 3/16" 0.5 ML Use as directed. 300 Each 3 09/22/2024 Active amLODIPine Besylate 2.5 MG Oral Tablet (Norvasc) Take 1 Tablet by mouth in the morning. Active Ferrous Sulfate 325 (65 Fe) MG Oral Tablet Delayed Release Take 1 Tablet by mouth in the morning and 1 Tablet at noon and 1 Tablet in the evening. Take with meals. Active Aspirin 325 MG Oral Capsule Take by mouth. Active ProSource Oral Liquid Take by mouth. Active Zinc Oxide 9.38 % External Ointment Apply 40 % topically to affected area once. Apply to groin area Active documented as of this encounter (statuses as of 09/28/2024) Active Problems Problem Noted Date Diagnosed Date Status post below-knee amputation of left lower extremity 09/28/2024 Osteopenia 03/02/2024 Nonrheumatic aortic valve stenosis 04/08/2022 [...] as of this encounter (statuses as of 09/28/2024) Resolved Problems Problem Noted Date Diagnosed Date Resolved Date RENAL INSUFFICIENCY 07/08/2010 03/02/20 24 documented as of this encounter (statuses as of 09/28/2024) Immunizations Name Administration Dates Next Due COVID-19 mRNA, LNP-s, No Pre serve, 2-Dose Series ([employer]) 09/05/2021,01/30/2021,01/03/2021 DTaP Dipth/Tet/Acell Pertussis (Infanrix), Peds 04/13/2022 Pneumococcal Conjugate Vacc, 13 Valent (Prevnar) 07/29/2016 Pneumococcal Polysaccharide PPV23 (Pneumovax) 10/11/2014,11/22/2003 RSV Vac., Recomb, Adjuvant, PF,0.5 Ml (Arexvy) 10/08/2023 SARS-COV-2 (COVID-19) Vaccin e Unspecified 08/21/2022 Seasonal Influenza Vac., MDV , IM, 0.5 mL (Fluzone) 09/03/2021,09/02/2020,08/30/2019,07/29,08/28/2015,08/01/2013,08/24/2011 ,09/10/2009,10/13/2004 Seasonal Influenza Virus Vac cine, Unspecified Formulation 09/14/2024 Seasonal Influenza, Quadriva lent Hd (Fluzone Hd) [...] Sign Reading Time Taken Comments Blood Pressure 118/64 09/28/2024 1:58 PM EST Pulse 79 09/28/2024 1:58 PM EST Temperature 36.8 C (98.3 F) 09/28/2024 1:58 PM ES T Respiratory Rate 20 09/28/2024 1:58 PM EST Oxygen Saturation 100% 09/28/2024 1:58 PM EST Inhaled Oxygen Concentration - - Weight - - Height 168.9 cm (5' 6.5") 09/28/2024 1:58 PM EST Body Mass Index - - documented in this encounter Progress Notes * Louisa Quiroga, - 09/28/2024 7:51 PM EST SUBJECTIVE: Tre Gonzalez is a 79 year old male. Chief Complaint Patient presents with Hospital Follow-Up Pt reports for discharge from , limited due to mobility, denies pain, bowels moving, looking forward to prosthesis, sees the surgeon tomorrow, has records with him Hospital Follow-Up Recent Admission: Patient was recently admitted to [facility]. The date of discharge was 09/22/24. Discharge report received and reviewed. HPI: 79-year-old male here today for hospital follow-up Chart reviewed Patient was admitted for [id number] amputation on his left leg Patient has a diagnosis of type 1 diabetes and had developed ongoing nonhealing wounds of his leg Was found to have pretty significant peripheral vascular disease Overall amputation went well, unfortunately he did develop a MRSA infection and was on IV antibiotics He continues to follow with Wound Care and Orthopedics He does have follow-up with the surgeon tomorrow Did meet with prosthetics, hopefully will be able to have fitting for his leg in the very near future Overall he feels like his diabetes starting to get back to normal now that he is back home Patient Active Problem List Diagnosis CAD-S/PCABGX4 Dyslipidemia, goal LDL below 70 ASCVD (arteriosclerotic cardiovascular disease) Diabetes mellitus with background retinopathy ([facility]) E.D. GLAUCOMA OSTEOARTHRITIS HYPERKALEMIA CATARACTS Type 1 diabetes mellitus with hemoglobin A1c goal of less than 7.0% ([facility]) Anemia Horseshoe kidney BIILAT INGUINAL HERNIA Anal fistula BPH Carotid stenosis, asymptomatic, bilateral CKD stage 3 due to type 1 diabetes mellitus ([facility]) Diabetic retinopathy associated with type 1 diabetes mellitus ([facility]) Essential hypertension Glaucoma Hypothyroidism Nonrheumatic aortic valve stenosis Peripheral vascular disease ([facility]) Posterior vitreous detachment of left eye Postsurgical aortocoronary bypass status Right bundle branch block Pure hypercholesterolemia Type 1 diabetes mellitus with hyperglycemia ([facility]) Osteopenia Status post below-knee amputation of left lower extremity ([facility]) Current Outpatient Medications Medication Sig Dispense Refill [...] to 4 times daily 400 Each 3 Metoprolol Succinate ER 50 MG Oral Tablet Extended Release 24 Hour (toPROL XL) TAKE 1 TABLET BY MOUTH IN THE MORNING 90 Tablet 1 Vitamin D3 250 MCG (01887 UT) Oral Tablet (Cholecalciferol) Take 1 Tablet by mouth every evening. Timolol Maleate 0.25 % Ophthalmic Solution (Timoptic) Instill 1 Drop into both eyes in the morning and 1 Drop before bedtime. Pen Shafter 31G X 5 MM Use as directed. 400 Each 3 Alendronate Sodium 35 MG Oral Tablet (Fosamax) Take 1 Tablet by mouth once a week. Take in the morning with a full glass of water, on an empty stomach, and do not take anything else by mouth or lie down for the next 30 min. 12 Tablet 3 Levothyroxine Sodium 50 MCG Oral Tablet (Levoxyl) TAKE 1 TABLET BY MOUTH DAILY FIRST THING IN THE MORNING 90 Tablet 2 Insulin Syringe-Needle U-100 30G X 3/16" 0.5 ML Use as directed. 300 Each 3 Ferrous Sulfate 325 (65 Fe) MG Oral Tablet Delayed Release Take 1 Tablet by mouth in the morning and 1 Tablet at noon and 1 Tablet in the evening. Take with meals. Aspirin 325 MG Oral Capsule Take by mouth. ProSource Oral Liquid Take by mouth. Zinc Oxide 9.38 % External Ointment Apply 40 % topically to affected area once. Apply to groin area Apixaban 5 MG Oral Tablet (Eliquis) Take 1 Tablet by mouth in the morning and 1 Tablet before bedtime. (Patient not taking: Reported on 09/28/2024) Clopidogrel Bisulfate 75 MG Oral Tablet (Plavix) Take 1 Tablet by mouth in the morning. (Patient not taking: Reported on 09/28/2024) traMADol HCl 50 MG Oral Tablet Take 2 Tablets by mouth every 8 hours as needed for Pain, Severe. (Patient not taking: Reported on 09/28/2024) amLODIPine Besylate 2.5 MG Oral Tablet (Norvasc) Take 1 Tablet by mouth in the morning. No current facility-administered medications for this visit. Current and discharge medications have been reconciled. Review of patient's allergies indicates: Allergen Reactions Amoxicillin Nausea/vomiting Pollen Sulfamethoxazole-Trimethoprim Nausea/vomiting Morphine And Codeine Nausea/vomiting Robitussin A-C [Guaifenesin-Codeine] Nausea/vomiting OBJECTIVE: BP 118/64 | Pulse 79 | Temp 36.8 C (98.3 F) (Temporal Artery) | Resp 20 | Ht 1.689 m (5' 6.5") | SpO2 100% | BMI 23.18 kg/m | BSA 1.76 m REVIEW OF SYSTEMS: PHYSICAL EXAM: BP 118/64 | Pulse 79 | Temp 36.8 C (98.3 F) (Temporal Artery) | Resp 20 | Ht 1.689 m (5' 6.5") | SpO2 100% | BMI 23.18 kg/m | BSA 1.76 m Physical Exam Vitals and nursing note reviewed. Constitutional: General: He is not in acute distress. Appearance: He is well-developed. He is not diaphoretic. Neck: Thyroid: No thyromegaly. Cardiovascular: Rate and Rhythm: Normal rate and regular rhythm. Heart sounds: Normal heart sounds. No murmur heard. Pulmonary: Effort: Pulmonary effort is normal. No respiratory distress. Breath sounds: Normal breath sounds. Abdominal: General: There is no distension. Musculoskeletal: Cervical back: Neck supple. Comments: Left bka, stump healed well Right foot with ulcer on heel, mild swelling of right foot and ankle Lymphadenopathy: Cervical: No cervical adenopathy. Skin: General: Skin is warm and dry. Neurological: Mental Status: He is alert and oriented to person, place, and time. Psychiatric: Behavior: Behavior normal. Thought Content: Thought content normal. Judgment: Judgment normal. ASSESSMENT: Hospital discharge follow-up (Primary) - DISCH MED RECON CUR MED LIS Status post below-knee amputation of left lower extremity (HCC) Type 1 diabetes mellitus with hemoglobin A1c goal of less than 7.0% (HCC) Peripheral vascular disease (HCC) Overall doing well No major changes today Follow up with orthopedics, and vascular Will check if hyperbaric chamber available at [facility] wound care Follow Up: Return in about 6 months (around 03/28/2025). I spent a total of 30-39 minutes (exact time 35 mins) minutes on the date of service in preparation, delivery, and documentation of the care provided to Tre Gonzalez excluding any time spent in performance of separately billed services. Louisa Quiroga DO documented in this encounter Plan of Treatment Upcoming Encounters Date Type Department Care Team (Late st Contact Info) Description 07/26/2025 10:20 AM EDT Office Visit Family Practice [address] [place] [address] [place] [address] Louisa Quiroga DO [address] [place] [address] Health Maintenance Due Date Last Done Comments Hepatitis C Screening 1963 Adult Wellness Visit 2011 Diabetic Foot Exam 05/15/2012 05/15/2011, 06/02/2010 CKD PHOS USE SMARTSET [id number] 06/15/2024 06/15/2023 COVID-19 Vaccine ( season) 2024 09/20/2023, 08/21/2022, 09/05/2021, Additional history exists HbA1c 09/01/2024 03/02/2024, 05/23, 09/03/2022, Additional history exists Diabetic Eye Exam 11/10/2024 11/10/2023, , 08/22/2021, Additional history exists Albumin/Creatinine Ratio 03/02/2025 024, 06/15/2023, 02/25/2022, Additional history exists GFR 03/19/2025 09/18/2024, 07/24, 08/05/2024, Additional history exists Depression Monitoring 06/29/2025 06/29/2024, 024 CKD HGB USE SMARTSET 38347 09/18/202509/18, 08/16/2024, 08/05/2024, Additional history exists TSH 09/18/2025 09/18/2024, 07/23, 03/02/2024, Additional history exists DTap/Tdap Vaccines (3 - Td or Tdap) 04/13/2032 04/13/2022, 04/09/2011, 11/22/1997 Pneumococcal Vaccine: 65+ Years Completed 07/29/2016, 10/11/2014, 11/22/2003 Zoster Vaccines Completed 10/05/2018, 03/22, 05/27/2011 Influenza Vaccine (FLU shot) Completed , 08/09/2023, 09/02/2022, Additional history exists HPV (Gardasil) Vaccine Aged Out No lo [...] as of this encounter Visit Diagnoses Diagnosis Hospital discharge follow-up- Primary Other follow-up examination Status post below-knee amputation of left lower extremity (HCC) Type 1 diabetes mellitus with hemoglobin A1c goal of less than 7.0% (HCC) Peripheral vascular disease (HCC) Peripheral vascular disease, unspecified documented in this encounter Care Teams Skein Straightener Relationship Specialty Start Date End Date Louisa Quiroga DO [address] [facility] [place] [address] PCP - General Family Medicine 07/03/24 documented as of this encounter
--- OUTSIDE RECORDS SUMMARY | 2024-10-03 10:50 | External Medical Summary | Continuity Of Care Document ---
Author Name Unknown Address [address] [address] Organization [facility] () Care Team Providers Care Lens Grinder Name Role Phone DO Machado Amy Primary Care Provider [phone] Allergies Allergy Reaction Start Date End Date Status TRAMADOL Weakness Active AMOXICILLIN Nausea, Weakness Active AUGMENTIN Active CODEINE Active SULFA (SULFONAMIDE ANTIBIOTICS) 00/0 Active Medications Medication Instructions Dosage Start Date End Date Status Order Date Drug Code Frequency Route of Admin Diagnosis Code Substitutions Allowed Tubersol 5 tub. unit/0.1 mL intradermal injection solution [Tuberculin PPD] 0.1 mL Intradermal 1 time For PPD Step 1 GIVE on Day 1 and read results Day 3 0.1 mL 08/29 Inactiv e 2023 33767 36561 0 1 time Intrad ermal False Tubersol 5 tub. unit/0.1 mL intradermal injection solution [Tuberculin PPD] 0.1mL Intradermal 1 time For PPD 2nd Step Give 2nd Step PPD Day 1 and Read results Day 3 (schedule 7 days after 1st READ) 0.1mL 09/08 Inactiv e 2023 43855 80092 0 1 time Intrad ermal False [facility] - Nurse initials indicate verificatio n that [id number] vaccine was administere d by [facility] Representat scar 1 Intramuscular 1 time ( Indicate vaccine type) For vaccine 1 09/15 Inactiv e 2023 1 time Intram uscula r False Humalog KwikPen (U-100) Insulin 100 unit/mL subcutaneou s Subcutaneous AC & HS times a day <70 HOLD - Initiate Hypoglycemic Protocol HOLD 150-199 give 1.0 Units 200-249 give 3.0 Units 250-299 give 5.0 Units 300-349 give 7.0 Units 350-399 give 9.0 Units >450 Call Provider for one- time order >500 Call Provider for one-time order For Diabetes 08/25 Inactiv e 2023 77071 93188 9 4 times a day Subcut aneous False Aspirin 325 mg tablet [generic] 325 By Mouth Twice daily For Anticoagulati on 325 09/25 Active 2023 89189 00049 1 Twice daily By Mouth False Ferrous sulfate 325 mg (65 mg iron) tablet [generic] 325 By Mouth Once daily For anemia 325 2023 Active 2023 39212 20004 5 Once daily By Mouth False Linezolid 600 mg tablet [generic] 600 mg By Mouth Every 12 hours For MRSA INFECTION L BKA 600 mg 08/25 Inactiv e 2023 50499 41573 1 Every 12 hours By Mouth False Cefpodoxime 200 mg tablet [generic] 400 mg By Mouth Twice daily For MRSA INFECTION L BKA 400 mg 08/25 Inactiv e 2023 86166 87827 0 Twice daily By Mouth False Coenzyme Q10 100 mg tablet [generic] 100 mg By Mouth Once daily For SUPP 100 mg 2023 Active 2023 98559 04301 0 Once daily By Mouth False Levothyroxi ne 50 mcg tablet [generic] 50mcg By Mouth Once daily For hypothyroidis m 50mcg 2023 Active 2023 64820 15065 0 Once daily By Mouth False One A Day Men Complete 240 mcg-25 mcg-300 mcg tablet 1 tab By Mouth Once daily For supplement 1 tab 2023 Active 2023 78253 14263 1 Once daily By Mouth False Cholecalcif adalberto (vitamin D3) 50 mcg (2,000 unit) tablet [generic] 1 TAB By Mouth Once daily For SUPP 1 TAB 2023 Active 2023 38871 59833 1 Once daily By Mouth False Cetirizine 10 mg tablet [generic] 1 TAB By Mouth At bedtime For Allergies 1 TAB 2023 Active 2023 56002 67972 0 At bedtime By Mouth False Timolol maleate 0.25 % eye drops [generic] 1 drop Both Eyes Twice daily For glaucoma 1 drop 2023 Active 2023 53014 21569 5 Twice daily Both Eyes False Alendronate 35 mg tablet [generic] 35mg By Mouth Every week For SIADH 35mg 08/31 Inactiv e 2023 03758 29215 5 Every week By Mouth False Lantus Solostar U-100 Insulin 100 unit/mL (3 mL) subcutaneou s pen 18 units Subcutaneous Every morning For DIABETES 18 units 08/25 Inactiv e 2023 72139 33121 0 Every morning Subcut aneous False Lantus Solostar U-100 Insulin 100 unit/mL (3 mL) subcutaneou s pen 18 units Subcutaneous Every morning For DIABETES 18 units 2023 Active 2023 41894 58062 0 Every morning Subcut aneous False Linezolid 600 mg tablet [generic] 600 mg By Mouth Every 12 hours For MRSA INFECTION L BKA 600 mg 08/28 Inactiv e 2023 95406 57168 1 Every 12 hours By Mouth False Humalog KwikPen (U-100) Insulin 100 unit/mL subcutaneou s Subcutaneous AC & HS times a day <70 HOLD - Initiate Hypoglycemic Protocol HOLD 150-199 give 1.0 Units 200-249 give 3.0 Units 250-299 give 5.0 Units 300-349 give 7.0 Units 350-399 give 9.0 Units >450 Call Provider for one- time order >500 Call Provider for one-time order For Diabetes 08/31 Inactiv e 2023 63963 08054 9 4 times a day Subcut aneous False Cefpodoxime 200 mg tablet [generic] 400 mg By Mouth Twice daily For MRSA INFECTION L BKA 400 mg 08/28 Inactiv e 2023 09935 19208 0 Twice daily By Mouth False Brimonidine 0.1 % eye drops [generic] 1 drop Both Eyes Twice daily For glaucoma 1 drop 2023 Active 2023 33728 63490 0 Twice daily Both Eyes False Metoprolol succinate ER 50 mg tablet,exte nded release 24 hr [generic] 50 mg By Mouth Once daily HOLD FOR SBP <100, or pulse <60 For HTN 50 mg 2023 Active 2023 37921 32895 1 Once daily By Mouth False Amlodipine 2.5 mg tablet [generic] 2.5 mg By Mouth Once daily For HTN 2.5 mg 2023 Active 2023 55222 57899 5 Once daily By Mouth False Docusate sodium 100 mg capsule [generic] 100mg By Mouth Twice daily as needed For constipation HOLD FOR LOOSE STOOLS 100mg 2023 Active 2023 92813 12914 1 Twice daily as needed By Mouth False Atorvastati n 40 mg tablet [generic] 40mg By Mouth Once daily For HDL 40mg 08/26 Inactiv e 2023 66328 72676 5 Once daily By Mouth False Tylenol 325 mg tablet 2 tabs By Mouth Every 4 hours as needed For Pain DO NOT EXCEED 3000 MG APAP/24 Hours 2 tabs 2023 Active 2023 70465 38414 0 Every 4 hours as needed By Mouth False Tylenol 325 mg tablet 2 tabs By Mouth Every 4 hours as needed For Fever >100 DO NOT EXCEED 3000 MG APAP/24 Hours 2 tabs 2023 Active 2023 77367 11812 0 Every 4 hours as needed By Mouth False Dulcolax (bisacodyl) 10 mg rectal suppository One Suppository per rectum PRN if Milk of Magnisia ineffective. Give on day 5 of no BM 1 sup 2023 Active 2023 69523 31060 1 Daily as needed Rectal False Fleet Enema 19 gram-7 gram/118 mL Administer per rectum PRN one time if dulcolax suppository not effective. Give on day 6 of no BM 1 2023 Active 2023 02881 33731 6 Daily as needed Rectal False Dextrose 50 % in water (D50W) intravenous solution [generic] Dextrose 50% evonne 20-50 ml (slow push) Intravenous if Glucagon not effective after 15 minutes. CALL 911 for ED Evaluation. 50% evonne 2023 Active 2023 12436 04078 9 Intrav enous False Glucagon (HCl) Emergency Kit 1 mg solution for injection Administer Glucagon 1 mg Intramuscular if 15 minutes after GLucose Gel is administered Glucose remains less than 70 1 mg 2023 Active 2023 00705 99407 2 Intram uscula r False Glucose Gel 40 % oral gel [Dextrose] PRN If resident is unable to swallow (with or without symptoms) and Glucose results less than 70 give GLucose 40% Gel 1 tube orally - Recheck Glucose 15 minutes after administratio n. 1 tube 2023 Active 2023 22843 04905 8 By Mouth False Milk of Magnesia 400 mg/5 mL oral suspension [Magnesium hydroxide] PRN 30ml By Mouth Daily as needed for constipation one time daily if no BM, on day 4 of no BM (PRN refer to instructions) For Constipation 30 mL 2023 Active 2023 98010 81447 6 Daily as needed By Mouth False Atorvastati n 40 mg tablet [generic] 08/26 Inactiv e 2023 52564 37148 5 Atorvastati n 40 mg tablet [generic] 40mg By Mouth Once daily For HDL 40mg 2023 Active 2023 08545 11722 5 Once daily By Mouth False Insulin aspart (U-100) 100 unit/mL (3 mL) subcutaneou s pen [generic] 15 units Subcutaneous 1 time For dm 15 units 08/26 Inactiv e 2023 08229 96046 5 1 time Subcut aneous False Humalog KwikPen (U-100) Insulin 100 unit/mL subcutaneou s 15 units Subcutaneous 1 time For dm 15 units 08/27 Inactiv e 2023 40786 28998 9 1 time Subcut aneous False Linezolid 600 mg tablet [generic] 600 mg By Mouth Every 12 hours For MRSA INFECTION L BKA 600 mg 09/06 Inactiv e 2023 12392 46853 1 Every 12 hours By Mouth False Cefpodoxime 200 mg tablet [generic] 400 mg By Mouth Twice daily For MRSA INFECTION L BKA 400 mg 08/31 Inactiv e 2023 86676 14300 0 Twice daily By Mouth False Senna 8.6 mg tablet 8.6 mg By Mouth Once daily For Constipation 8.6 mg 09/07 Inactiv e 2023 26452 15678 1 Once daily By Mouth False Humalog KwikPen (U-100) Insulin 100 unit/mL subcutaneou s Before meals and before bedtime subcutaneuous self-administ ration of insulin. Resident will self-administ er and self-manage insulin per his carb-counting method. Insulin Pen is kept with nursing team, provided to resident for self-injectio n. Each administratio n nursing team will record blood sugar and amount administered. Normal hypoglycemic and hyperglycemic protocols will still be followed. Physician will be notified of abnormalities . Per Carb 09/19 Inactiv e 2023 01314 82201 9 4 times a day Subcut aneous False Alendronate 35 mg tablet [generic] 08/31 Inactiv e 2023 51161 41054 5 Alendronate 35 mg tablet [generic] 35mg By Mouth Every week For Osteoporosis 35mg 09/21 Inactiv e 2023 87651 88359 5 Every week By Mouth False ProSource 10 gram-100 kcal/30 mL oral liquid 30 ml By Mouth Once daily For wound healing 30 ml 2023 Active 2023 38002 51998 2 Once daily By Mouth False Problems Code Description Start Date End Date Status D64.9 Anemia, unspecified 08/25/2024 Activ e I25.10 Atherosclerotic hear t disease of [place] coronary artery without angina pectoris 08/25/2024 Active E78.5 Hyperlipidemia, unspecified 08/25/2024 00 Active I10. 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) 08/25/20 24 Active Z47.81 Encounter for orthop edic aftercare following surgical amputation 08/25/2024 Active E06.3 Autoimmune thyroiditis 08/25/2024 Ac tive E03.9 Hypothyroidism, unspecified 08/25/2024 00 Active H40.9 Unspecified glaucoma 08/25/2024 Acti ve I34.0 Nonrheumatic mitral (valve) insufficiency 08/25 Active M85.80 Other specified diso rders of bone density and structure, unspecified site 08/25/2024 Active I73.9 Peripheral vascular disease, unspecified 2023 Active 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00/min 51407 004 78351 2 67.00 mm[Hg] - Sitting 145.00 mm[Hg] - Sitting 98.50 Tympanic 81.00/ min 16.00/min 98625 004 92788 5 56.00 mm[Hg] - Sitting 142.00 mm[Hg] - Sitting 136.40 NI 100.20 Tympanic 96.00 % 92.00/ min 18.00/min 63415 004 05336 6 77411 004 27955 4 143.00 mg/dL 004 29048 0 97.80 Tympanic 53335 005 72292 7 60.00 mm[Hg] - Sitting 140.00 mm[Hg] - Sitting 98.00 Tympanic 84.00/ min 18.00/min 95647 005 52100 0 63.00 mm[Hg] - Sitting 141.00 mm[Hg] - Sitting 98.20 Tympanic 92.00 % 63.00/ min 16.00/min 36812 005 80886 8 69.00 mm[Hg] - Sitting 106.00 mm[Hg] - Sitting 97.20 Tympanic 73919 005 64902 7 69.00/ min 16.00/min 86553 005 10001 3 69.00 mm[Hg] - Sitting 106.00 mm[Hg] - Sitting 98.20 Tympanic 69.00/ min 16.00/min 05186 005 45952 1 367.00 mg/dL 51560 005 84662 2 97.20 Tympanic 14041 005 73333 4 97.20 Tympanic 74727 005 71769 0 69.00 mm[Hg] - Sitting 106.00 mm[Hg] - Sitting 69.00/ min 60615 005 48858 3 452.00 mg/dL 21613 005 63122 3 452.00 mg/dL 69370 005 18559 5 352.00 mg/dL 87724 005 95817 3 352.00 mg/dL 15906 005 65777 7 98.20 Tympanic 92219 005 71121 3 101.00 mg/dL 49605 005 44072 8 101.00 mg/dL 06817 006 33750 4 66.00 mm[Hg] - Sitting 107.00 mm[Hg] - Sitting 98.00 Tympanic 66.00/ min 18.00/min 10927 006 43274 0 62.00 mm[Hg] - Sitting 162.00 mm[Hg] - Sitting 98.20 Tympanic 96.00 % 60.00/ min 16.00/min 26443 006 04680 4 62.00 mm[Hg] - Sitting 162.00 mm[Hg] - Sitting 98.00 Tympanic 70.00/ min 18.00/min 43922 006 51697 8 62.00 mm[Hg] - Sitting 162.00 mm[Hg] - Sitting 98.20 Tympanic 70.00/ min 18.00/min 97044 006 29319 2 66.00 mm[Hg] - Sitting 132.00 mm[Hg] - Sitting 98.60 Tympanic 74.00/ min 16.00/min 35875 006 16954 5 159.00 mg/dL 31203 006 01097 1 159.00 mg/dL 45659 006 90161 8 98.00 Tympanic 14432 006 13469 2 62.00 mm[Hg] - Sitting 162.00 mm[Hg] - Sitting 70.00/ min 48781 006 71919 7 264.00 mg/dL 63329 006 66852 7 264.00 mg/dL 12840 006 61155 4 196.00 mg/dL 98699 006 72007 3 98.20 Tympanic 72269 006 92190 6 271.00 mg/dL 53948 007 40392 3 97.20 Tympanic 05368 007 26403 2 63.00 mm[Hg] - Sitting 132.00 mm[Hg] - Sitting 98.50 Tympanic 94.00 % 66.00/ min 16.00/min 45860 007 15022 5 188.00 mg/dL 36363 007 45261 2 188.00 mg/dL 84174 007 20526 2 188.00 mg/dL 17602 007 41353 7 97.20 Tympanic 11439 007 50406 6 97.20 Tympanic 43582 007 74924 5 67.00 mm[Hg] - Sitting 152.00 mm[Hg] - Sitting 68.00/ min 37289 007 02453 0 141.00 mg/dL 09564 007 49405 3 141.00 mg/dL 20096 007 54347 1 366.00 mg/dL 82677 007 26099 7 366.00 mg/dL 25574 007 40295 7 98.00 Tympanic 61149 007 14524 6 324.00 mg/dL 12011 007 75853 3 98.00 Tympanic 01260 007 00729 7 324.00 mg/dL 69746 008 23616 0 98.00 Tympanic 58946 008 09604 2 97.90 Tympanic 42133 008 12657 0 98.20 Tympanic 66310 008 15328 0 73.00 mm[Hg] - Sitting 156.00 mm[Hg] - Sitting 98.60 Tympanic 99.00 % 66.00/ min 20.00/min 18207 008 43374 5 137.00 mg/dL 42602 008 25700 7 137.00 mg/dL 28421 008 01317 2 97.90 Tympanic 01740 008 79807 1 137.00 mg/dL 79517 008 68701 8 97.90 Tympanic 69575 008 75820 5 67.00 mm[Hg] - Sitting 124.00 /min 03507 008 25774 6 212.00 mg/dL 35679 008 17431 6 212.00 mg/dL 70455 008 84135 9 317.00 mg/dL 96359 008 08532 4 317.00 mg/dL 04030 008 82045 8 252.00 mg/dL 22877 008 09322 0 98.70 Tympanic 36319 008 65904 7 252.00 mg/dL 92523 008 33712 3 98.70 Tympanic 32375 009 48497 9 98.70 Tympanic 63342 009 27159 3 98.20 Tympanic 67973 009 72472 5 98.40 Tympanic 61661 009 68543 5 57.00 mm[Hg] - Sitting 129.00 mm[Hg] - Sitting 98.30 Tympanic 97.00 % 65.00/ min 18.00/min 61486 009 87398 1 255.00 mg/dL 28970 009 87099 4 255.00 mg/dL 00472 009 41512 5 98.20 Tympanic 71971 009 66216 0 255.00 mg/dL 04637 009 29623 0 98.20 Tympanic 59477 009 98270 4 63.00 mm[Hg] - Lying Down 102.00 mm[Hg] - Lying Down 58.00/ min 45313 009 30300 0 167.00 mg/dL 05858 009 89357 1 167.00 mg/dL 20873 009 91738 2 164.00 mg/dL 68133 009 62204 1 164.00 mg/dL 16391 009 63316 5 208.00 mg/dL 76756 010 75619 3 98.40 Tympanic 61896 010 48030 5 98.40 Tympanic 00510 010 00842 7 66 [place] 90650 010 98273 4 60.00 mm[Hg] - Sitting 143.00 mm[Hg] - Sitting 98.90 Tympanic 98.00 % 67.00/ min 18.00/min 26458 010 98168 2 214.00 mg/dL 68931 010 19310 0 214.00 mg/dL 77617 010 62076 7 214.00 mg/dL 01716 010 67601 6 64.00 mm[Hg] - Sitting 110.00 mm[Hg] - Sitting 72.00/ min 32954 010 48680 7 98.40 Tympanic 68559 010 68102 1 212.00 mg/dL 45649 010 76322 2 212.00 mg/dL 09953 010 95757 1 115.00 mg/dL 05115 010 35704 0 115.00 mg/dL 59912 010 76893 4 98.50 Tympanic 77409 010 97758 4 150.00 mg/dL 72730 010 47806 0 150.00 mg/dL 26229 011 23788 9 98.60 Tympanic 02809 011 15516 1 67.00 mm[Hg] - Sitting 144.00 mm[Hg] - Sitting 98.20 Tympanic 98.00 % 61.00/ min 18.00/min 09916 011 88071 7 290.00 mg/dL 47714 011 94317 2 290.00 mg/dL 08005 011 26035 2 290.00 mg/dL 25058 011 22400 7 54.00 mm[Hg] - Sitting 136.00 mm[Hg] - Sitting 101.00 /min 82335 011 42509 7 98.60 Tympanic 41350 011 79493 5 240.00 mg/dL 05203 011 40986 1 240.00 mg/dL 91141 011 22375 1 156.00 mg/dL 39278 011 66269 9 156.00 mg/dL 22312 011 69660 0 97.80 Tympanic 83523 011 59778 8 343.00 mg/dL 66397 012 22181 9 97.90 Tympanic 56803 012 60462 2 466.00 mg/dL 08092 012 68633 1 466.00 mg/dL 81551 012 46990 3 466.00 mg/dL 45171 012 60828 8 97.90 Tympanic 79235 012 22285 8 56.00 mm[Hg] - Sitting 96.00 mm[Hg] - Sitting 61.00/ min 98966 012 20276 7 350.00 mg/dL 67707 012 67083 5 350.00 mg/dL 06509 012 23920 6 111.00 mg/dL 29096 012 62615 0 111.00 mg/dL 89573 012 30556 5 98.40 Tympanic 94363 012 00026 6 114.00 mg/dL 78298 013 23765 4 74.00 mm[Hg] - Sitting 112.00 mm[Hg] - Sitting 98.40 Tympanic 70.00/ min 18.00/min 44139 013 50543 8 244.00 mg/dL 21297 013 59059 7 244.00 mg/dL 16349 013 73748 1 244.00 mg/dL 21941 013 25169 1 98.20 Tympanic 39044 013 65013 7 72.00 mm[Hg] - Sitting 119.00 mm[Hg] - Sitting 76.00/ min 17930 013 94936 7 253.00 mg/dL 47394 013 77738 4 253.00 mg/dL 14403 013 43113 9 156.00 mg/dL 63291 013 61880 5 156.00 mg/dL 18056 013 11423 4 97.90 Tympanic 45465 013 78332 5 189.00 mg/dL 94933 014 70481 9 98.10 Tympanic 72958 014 49139 0 61.00 mm[Hg] - Sitting 139.00 mm[Hg] - Sitting 98.20 Forehead Scan 99.00 % 66.00/ min 18.00/min 52878 014 83598 3 169.00 mg/dL 74432 014 08319 3 98.10 Tympanic 30705 014 50240 3 75.00 mm[Hg] - Sitting 121.00 mm[Hg] - Sitting 71.00/ min 88612 014 63198 9 221.00 mg/dL 78361 014 40815 9 62.00 mg/dL 97164 014 04103 5 62.00 mg/dL 07978 014 78691 8 156.00 mg/dL 84519 014 51177 6 98.10 Tympanic 39986 014 68527 7 156.00 mg/dL 23272 015 81365 4 54038 015 33463 7 62.00 mm[Hg] - Sitting 142.00 mm[Hg] - Sitting 98.20 Tympanic 99.00 % 67.00/ min 18.00/min 51257 015 82015 9 120.00 mg/dL 44095 015 68216 7 98.00 Tympanic 49114 015 47866 2 82.00 mm[Hg] - Sitting 119.00 /min 44339 015 16786 9 110.00 mg/dL 98096 015 60081 6 104.00 mg/dL 82240 015 45539 0 100.00 mg/dL 49553 015 74382 2 98.10 Tympanic 29104 015 78159 6 100.00 mg/dL 04384 016 52533 2 67.00 mm[Hg] - Sitting 147.00 mm[Hg] - Sitting 99.00 Tympanic 99.00 % 78.00/ min 20.00/min 93318 016 71699 5 158.00 mg/dL 62953 016 08159 1 158.00 mg/dL 90646 016 77241 2 158.00 mg/dL 92665 016 59052 0 66.00 mm[Hg] - Sitting 121.00 mm[Hg] - Sitting 74.00/ min 70779 016 60353 1 97.00 mg/dL 95218 016 74504 5 97.00 mg/dL 07346 016 34746 4 78.00 mg/dL 14249 016 85670 6 78.00 mg/dL 62770 016 49543 5 248.00 mg/dL 39068 016 53187 8 248.00 mg/dL 25353 017 45714 3 54.00 mm[Hg] - Sitting 142.00 mm[Hg] - Sitting 98.30 Tympanic 99.00 % 76.00/ min 18.00/min 32345 017 97746 4 267.00 mg/dL 17780 017 83915 6 73.00 mm[Hg] - Sitting 109.00 mm[Hg] - Sitting 70.00/ min 32488 017 62017 1 184.00 mg/dL 17616 017 25290 5 184.00 mg/dL 74147 017 93665 9 248.00 mg/dL 12021 017 64606 8 299.00 mg/dL 79603 017 35397 3 299.00 mg/dL 11020 018 88213 7 50.00 mm[Hg] - Sitting 125.00 mm[Hg] - Sitting 98.30 Tympanic 98.00 % 76.00/ min 16.00/min 52172 018 01567 3 168.00 mg/dL 73585 018 70749 0 75.00 mm[Hg] - Sitting 121.00 mm[Hg] - Sitting 70.00/ min 27994 018 17310 7 264.00 mg/dL 05859 018 81886 6 132.00 mg/dL 11557 018 05092 6 154.00 mg/dL 84985 018 22233 6 154.00 mg/dL 89703 019 74075 4 63.00 mm[Hg] - Sitting 147.00 mm[Hg] - Sitting 98.50 Tympanic 99.00 % 69.00/ min 18.00/min 51850 019 38803 9 159.00 mg/dL 43439 019 45205 8 73.00 mm[Hg] - Sitting 110.00 mm[Hg] - Sitting 72.00/ min 13201 019 99010 4 191.00 mg/dL 42343 019 68926 8 70.00 mg/dL 48305 019 89314 4 70.00 mg/dL 86989 019 02335 6 198.00 mg/dL 91763 019 31962 0 198.00 mg/dL 10453 020 28482 2 59.00 mm[Hg] - Sitting 131.00 mm[Hg] - Sitting 98.90 Tympanic 99.00 % 69.00/ min 18.00/min 22975 020 42112 7 299.00 mg/dL 66164 020 68167 0 62.00 mm[Hg] - Sitting 132.00 mm[Hg] - Sitting 68.00/ min 41922 020 26316 3 299.00 mg/dL 16989 020 74616 3 299.00 mg/dL 89120 020 33692 9 220.00 mg/dL 13426 020 90276 1 220.00 mg/dL 56816 020 21590 1 270.00 mg/dL 82930 020 88470 4 270.00 mg/dL 81712 020 11860 9 143.00 mg/dL 06260 020 24523 4 143.00 mg/dL 12030 021 22266 0 59.00 mm[Hg] - Sitting 121.00 mm[Hg] - Sitting 98.40 Forehead Scan 98.00 % 70.00/ min 16.00/min 64595 021 41146 0 140.00 mg/dL 10434 021 57382 0 67.00 mm[Hg] - Sitting 130.00 mm[Hg] - Sitting 68.00/ min 56182 021 81144 8 140.00 mg/dL 04985 021 06483 6 140.00 mg/dL 86733 021 80533 8 156.00 mg/dL 15759 021 63408 1 156.00 mg/dL 49297 021 26176 5 146.00 mg/dL 24209 021 74251 4 146.00 mg/dL 68813 021 78273 5 183.00 mg/dL 84296 021 76089 2 183.00 mg/dL 07223 022 63282 3 24272 022 50390 1 43.00 mm[Hg] - Sitting 113.00 mm[Hg] - Sitting 97.80 Tympanic 97.00 % 64.00/ min 18.00/min 44408 022 57037 6 270.00 mg/dL 18130 022 09779 5 68.00 mm[Hg] - Sitting 122.00 mm[Hg] - Sitting 67.00/ min 06770 022 32144 9 270.00 mg/dL 42165 022 03233 4 270.00 mg/dL 55105 022 44235 4 207.00 mg/dL 31605 022 33972 8 207.00 mg/dL 90727 022 14024 9 217.00 mg/dL 39165 022 2 217.00 mg/dL 42340 022 41056 0 192.00 mg/dL 75343 022 10220 9 192.00 mg/dL 08309 023 24050 8 48.00 mm[Hg] - Sitting 116.00 mm[Hg] - Sitting 98.50 Tympanic 97.00 % 63.00/ min 18.00/min 00327 023 94185 9 68.00 mm[Hg] - Sitting 131.00 mm[Hg] - Sitting 68.00/ min 35128 023 90340 8 235.00 mg/dL 29203 023 54474 4 235.00 mg/dL 21557 023 95524 0 235.00 mg/dL 85437 023 50362 0 199.00 mg/dL 51752 023 58555 7 199.00 mg/dL 25250 023 82579 4 233.00 mg/dL 43042 023 29551 3 233.00 mg/dL 40527 023 22076 6 229.00 mg/dL 37243 023 71238 4 229.00 mg/dL 05265 024 48882 3 58.00 mm[Hg] - Sitting 102.00 mm[Hg] - Sitting 58.00/ min 30726 024 84643 9 156.00 mg/dL 03891 024 97493 4 156.00 mg/dL 09294 024 62159 3 156.00 mg/dL 67151 024 33321 0 343.00 mg/dL 57293 024 16787 6 343.00 mg/dL 20861 024 83120 2 167.00 mg/dL 96473 024 55105 0 167.00 mg/dL 89437 024 53620 8 155.00 mg/dL 31688 024 03658 7 155.00 mg/dL 75020 025 55188 0 51.00 mm[Hg] - Lying Down 109.00 mm[Hg] - Lying Down 98.60 Tympanic 95.00 % 67.00/ min 20.00/min 64822 025 19529 0 60.00 mm[Hg] - Sitting 118.00 mm[Hg] - Sitting 98.30 Forehead Scan 98.00 % 68.00/ min 16.00/min 87351 025 18886 3 235.00 mg/dL 68481 025 63205 1 63.00 mm[Hg] - Sitting 110.00 mm[Hg] - Sitting 75.00/ min 66481 025 88720 9 295.00 mg/dL 38191 025 08047 4 94.00 mg/dL 19763 025 72804 1 132.00 mg/dL 94144 025 34224 2 132.00 mg/dL 55156 026 02231 8 50.00 mm[Hg] - Sitting 123.00 mm[Hg] - Sitting 98.50 Tympanic 95.00 % 66.00/ min 18.00/min 20134 026 82536 0 275.00 mg/dL 15148 026 92421 7 275.00 mg/dL 78387 026 72974 1 275.00 mg/dL 17046 026 31539 6 67.00 mm[Hg] - Sitting 123.00 mm[Hg] - Sitting 66.00/ min 70161 026 43507 3 187.00 mg/dL 42116 026 98382 5 187.00 mg/dL 80201 026 84741 0 167.00 mg/dL 73354 026 26720 8 167.00 mg/dL 64240 026 37107 6 387.00 mg/dL 40603 027 53119 7 53.00 mm[Hg] - Sitting 132.00 mm[Hg] - Sitting 98.60 Tympanic 97.00 % 64.00/ min 18.00/min 88757 027 11443 9 189.00 mg/dL 23069 027 04118 4 67.00 mm[Hg] - Sitting 118.00 mm[Hg] - Sitting 66.00/ min 38833 027 07913 2 189.00 mg/dL 10036 027 19788 7 189.00 mg/dL 15521 027 07367 1 105.00 mg/dL 12451 027 36389 8 105.00 mg/dL 82349 027 93975 4 223.00 mg/dL 37373 027 07084 9 223.00 mg/dL 20649 027 65233 9 164.00 mg/dL 12195 028 02197 0 68.00 mm[Hg] - Sitting 115.00 mm[Hg] - Sitting 98.60 Forehead Scan 96.00 % 71.00/ min 16.00/min 07204 028 65705 1 200.00 mg/dL 75823 028 10380 9 200.00 mg/dL 18340 028 82125 1 69.00 mm[Hg] - Sitting 122.00 mm[Hg] - Sitting 67.00/ min 73742 028 58693 3 200.00 mg/dL 78473 028 13238 0 117.00 mg/dL 46849 028 15920 0 117.00 mg/dL 58128 028 94621 1 114.00 mg/dL 07960 028 64621 7 114.00 mg/dL 36355 028 92268 0 179.00 mg/dL 32857 028 21772 8 179.00 mg/dL 30055 029 81690 4 44.00 mm[Hg] - Sitting 121.00 mm[Hg] - Sitting 98.30 Tympanic 97.00 % 65.00/ min 18.00/min 74318 029 64811 9 147.00 mg/dL 99293 029 40942 0 147.00 mg/dL 58717 029 95885 4 147.00 mg/dL 86253 029 57735 1 63.00 mm[Hg] - Sitting 118.00 mm[Hg] - Sitting 74.00/ min 04484 029 92798 2 278.00 mg/dL 60924 029 70023 3 278.00 mg/dL 59134 029 34666 1 241.00 mg/dL 74263 029 35290 8 66171 029 30474 1 504.00 mg/dL 57064 030 87190 0 54.00 mm[Hg] - Sitting 122.00 mm[Hg] - Sitting 98.40 Tympanic 98.00 % 70.00/ min 18.00/min 10665 030 26007 4 242.00 mg/dL 77458 030 85317 8 68.00 mm[Hg] - Sitting 121.00 mm[Hg] - Sitting 68.00/ min 16611 030 55754 2 242.00 mg/dL 15150 030 95680 3 170.00 mg/dL 66517 030 84260 0 170.00 mg/dL 45015 030 30722 4 200.00 mg/dL 86468 030 71429 7 200.00 mg/dL 06556 030 89180 3 131.00 mg/dL 11117 030 72961 5 131.00 mg/dL 91378 031 20201 2 150.00 mg/dL 43594 031 27234 6 60.00 mm[Hg] - Sitting 108.00 mm[Hg] - Sitting 60.00/ min 86898 031 64369 8 150.00 mg/dL 78575 031 72344 4 140.00 mg/dL 44521 031 64240 7 140.00 mg/dL 97192 031 09863 9 140.00 mg/dL 31279 031 82009 0 140.00 mg/dL Immunizations Vaccine Date Status COVID-19 09/20/2023 Completed Influenza 09/14/2024 Completed Other 10/08/2023 Completed Shingles 05/27/2011 Completed Tetanus 04/13/2022 Completed TDaP 04/13/2022 Completed Shingles 2 10/05/2018 Completed
--- OUTSIDE RECORDS SUMMARY | 2024-10-03 10:50 | External Medical Summary | Continuity of Care Document ---
Author Name Unknown Organization [facility] [address] [place], [place] [address]A Address [address] [place] [id number] Care Team Providers Care Motion Picture Critic Name Role Phone Louisa Quiroga Primary Care Physician [phone] [id number] Date(s): 09/29/24 - 09/29/24 [facility] [address] [id number] [facility] Medicine [address] [place], [place] [id number] Discharge Disposition: Home or Self Care Attending Physician: MARCO Hancock [place] Allergies, Adverse Reactions, Alerts Substance Criticality Severity Reaction Reaction Severity Status codeine Amoxicillin vomiting Active traMADol low blood sugar , stiff, dizzy Active Augmentin vominting Active amoxicillin vomiting Active Medications alendronate 35 mg oral tablet [...] Disp# 15 tab, Refills: 1, Pharmacy: [id number] Start Date: 09/29/24 Status: Ordered Co-Q10 100 [...] Literacy Communication Barriers N ever Primary Language [place] Problem List Condition Confirmation Course Effective Dates Status Health St atus Informant Ischemic necrosis of foot Confirmed Active PAD (peripheral artery disease) Confirmed Active Pressure ulcer of heel Confirmed Active Procedures Procedure Date Related Diagnosis Body Site Status Amputation below-knee 1 07/04/24 C ompleted 1Left Social History Social History Type Response Smoking Status Never smoked cigaret luana Sex Male Sex Representation Male (finding) Pre-OP H & P * MARCO Hancock, Fadumo: PERFORM Event Display: Pre-OP H & P Authored Date: Name:JUSTIN BARNES Patient Number:[id number] :1945 Date of Service:09/29/2024 Procedure: Right second toe amputation Chief Complaint pre-op History of Present Illness Patient is a79 year-oldmalepresenting today for their pre-operative history and physical examination for the above-noted surgery with Alia. He has history of left BKAand previousright secondtoeamputation. He was seen today by Dr. Domniguez who debridedan eschar over hissecond toe and underneath there was bone exposed. Patient is not having any pain. He has peripheral arterial disease.Dr. Dominguez recommendedrightsecond toe amputation and patient has agreed to proceeed. Review of Systems DeniesRecent illnesses, colds/flu, pneumonia, COVID or COVID exposures; DeniesFevers, chills, malaise; DeniesChest pain, heart palpitations; DeniesShortness of breath, cough; DeniesHeadacheor blurry vision; DeniesAbdominal pain, nausea, vomiting, diarrhea, or urinary symptoms Physical Exam General: Pt is well nourished, seated on the exam table AA&O, in NAD, calm and cooperative during exam HENT: Nontraumatic, no gross deformity, hearing and vision grossly in-tact, PERRL Heart: +S1, +S2, RRR, no murmurs appreciated Lungs: CTABL, no wheezing appreciated Patient has aleft BKA.He has arightsecond toe wound with bone exposed. This was redressed doing a wet-to-dry dressingand wrapping with Kerlix and an Jonathan wrap. Postop shoe was reapplied. Please refer to Dr. Dominguez's note for furtherexamination. Assessment/Plan Preop for right second toe amputation The risks and benefits of surgery as well as the post operative course was explained and discussed with the patient. Written consent obtained. The patient's past medical history, surgeries, social history, medication list, allergies and PDMP were reviewed and confirmed with the patient.He will be admitted after the surgery. Preoperative orders were placed. We discussed postoperative pain medications includingoxycodone, tylenol,as well as icing and elevating to control pain.Post operative DVT prophylaxiswill be discussed after surgery. He is currently on 81 mg aspirin daily. The patient has been scheduled for post operative appointments. They were advised to do dressing changes daily or every other dayuntil the surgery. The patient was given a preoperative booklet andwe reviewed the most pertinent things leading up to the surgery and the day of surgery; including any assisted devices pt may need, when/who to call for the surgery time, where to arrive the day of surgery, NPO after midnight, medications to hold etc. All of their questions and concerns were answered today. They were instructed to call our office if they have any further questions or concerns. Problem List/Past Medical History Ongoing Ischemic necrosis of foot PAD (peripheral artery disease) Pressure ulcer of heel Procedure/Surgical History Amputation below-knee| Service Date: 07/04/2024 Medications Home alendronate(alendronate 35 mg oral tablet) amLODIPine(amLODIPine 2.5 mg oral tablet) aspirin(aspirin 81 mg oral capsule) atorvastatin(atorvastatin 80 mg oral tablet) cefpodoxime(cefpodoxime 100 mg oral tablet), 200 mg= 2 tab, PO, q12h, 1 refills doxycycline(doxycycline hyclate 100 mg oral capsule), 100 mg= 1 cap, PO, bid, 1 refills ferrous sulfate(ferrous sulfate 325 mg (65 mg elemental iron) oral delayed release tablet), 325 mg=1 tab, PO, Daily insulin glargine(insulin glargine (Lantus)) insulin lispro(HumaLOG KwikPen 100 units/mL injectable solution), 4 unit levothyroxine(levothyroxine 50 mcg (0.05 mg) oral tablet) linezolid(linezolid 600 mg oral tablet), 600 mg= 1 tab, PO, q12h metoprolol(Metoprolol Succinate ER 50 mg oral tablet, extended release) timolol ophthalmic(timolol maleate 0.25% ophthalmic solution) traMADol(traMADol 50 mg oral tablet) ubiquinone(CoQ10) ubiquinone(Co-Q10 100 mg oral capsule), 100 mg= 1 cap, PO, Daily Allergies Augmentinvominting amoxicillinvomiting codeineAmoxicillin, vomiting traMADollow blood sugar, stiff, dizzy Social History Smoking Status Never smoked cigarettes Electronic Signature on File Electronically Reviewed/Signed by: Fadumo Hancock PA-C Author Signature Dt/Tm:09/29/2024 03:29 PM Physician [employer], [facility] [address], [place] [address] Electronically Reviewed/Signed by: MD Lokesh Sanchezigner Signature Dt/Tm: 09/29/2024 04:11 PM Division of Sports Medicine [place] Patient Care team information Care Team Personnel Name: DO Quiroga Jessie L Position: Referring DIRECT Member Role: Primary Care Provider Address: [address] [place] [address]"
--- OUTSIDE RECORDS SUMMARY | 2024-10-03 10:50 | External Medical Summary | Summary of Care ---
Author Name Unknown Organization [facility] Address [address] [place] [address] Phone [phone] Care Team Providers Care Inside Technical Sales Representative Name Role Phone Louisa Quiroga DO Primary Care Provider [phone] Encounter Details Date Type Department Care Team (Late st Contact Info) Description 09/26/2024 Orders Only Family Practice [facility] [address] [place] [address] Louisa Quiroga DO [address] [place] [address] Allergies Active Allergy Reactions Criticality Noted Date Comments Amoxicillin Nausea/vomiting 02/12/2023 Morphine And Codeine Nausea/vomiting Low 02/28/2010 Pollen 02/28/2010 Guaifenesin-Codeine Nausea/vomiting Low 02/28/2010 Sulfamethoxazole-Trimethoprim Nausea/vomiting 0 06/17/2018 documented as of this encounter (statuses as of 09/26/2024) Medications Medication Sig Dispensed Refills Start Date [...] hemoglobin A1c goal of less than 7.0% ([facility]) Sliding scale 8-12 units prior to meals 4 Each 5 06/15/2023 Active Insulin Syringe-Needle U-100 31G X 1/4" 0.3 MLIndications:Diabete s mellitus with background retinopathy ([facility]) Use as directed. For use of insulin up to 4 times daily 400 Each 3 07/24/2023 Active Metoprolol Succinate ER 50 MG Oral Tablet Extended Release 24 Hour (toPROL XL) TAKE 1 TABLET BY MOUTH IN THE MORNING 90 Tablet 1 02/08/2024 Active Vitamin D3 250 MCG (62967 UT) Oral Tablet (Cholecalciferol) Take 1 Tablet by mouth every evening. Active Timolol Maleate 0.25 % Ophthalmic Solution (Timoptic) Instill 1 Drop into both eyes in the morning and 1 Drop before bedtime. 07/07/2023 Active Pen [place] 31G X 5 MMIndications:Type 1 diabetes mellitus with hemoglobin A1c goal of less than 7.0% ([facility]) Use as directed. 400 Each 3 03/14/2024 [...] as directed. 300 Each 3 09/22/2024 Active documented as of this encounter (statuses as of 09/26/2024) Active Problems Problem Noted Date Diagnosed Date [...] as of this encounter (statuses as of 09/26/2024) Resolved Problems Problem Noted Date Diagnosed Date Resolved Date RENAL INSUFFICIENCY 07/08/2010 03/02/20 24 documented as of this encounter (statuses as of 09/26/2024) Immunizations Name Administration Dates Next Due COVID-19 [...] on file documented as of this encounter Plan of Treatment Upcoming Encounters Date Type Department Care Team (Late st Contact Info) Description 09/28/2024 1:40 PM EST Office Visit Family Practice [address] [place] [address] Louisa Quiroga, DO [address] [facility] [place] [address] Health Maintenance Due Date Last Done Comments Hepatitis C Screening 1963 Adult Wellness Visit 2011 Diabetic Foot Exam 05/15/2012 05/15/2011, 06/02/2010 CKD PHOS USE SMARTSET 63304 06/15/2024 06/15/2023 COVID-19 Vaccine ( season) 2024 09/20/2023, 08/21/2022, 09/05/2021, Additional history exists Influenza Vaccine (FLU shot) (#1) 2024 08/09/2023, 09/02/2022, 09/03/2021, Additional history exists HbA1c 09/01/2024 03/02/2024, 05/23, 09/03/2022, Additional history exists Diabetic Eye Exam 11/10/2024 11/10/2023, , 08/22/2021, Additional history exists GFR 02/13/2025 09/18/2024, 07/24, 08/05/2024, Additional history exists Albumin/Creatinine Ratio 03/02/2025 024, 06/15/2023, 02/25/2022, Additional history exists Depression Monitoring 06/29/2025 06/29/2024, 024 TSH 08/01/2025 09/18/2024, 07/23, 03/02/2024, Additional history exists CKD HGB USE SMARTSET 18622 08/16/202509/18, 08/16/2024, 08/05/2024, Additional history exists DTap/Tdap Vaccines (3 - [...] Not on filedocumented as of this encounter Procedures Procedure Name Priority Date/Time Associated Diagnosis Comments CHEMISTRY-OUTSIDE Routine 09/18/2024 TSH Routine 09/18/2024 documented in this encounter Results * TSH (09/18/2024) TSH - OUTSIDE LAB 2.370 0.410 - 4.670 MCIU/ML OUTSIDE LAB (SEE SCANNED REPORT) Blood Venous blood specimen / Unknown 09/18/2024 Saira Machado DO LAB BLOOD ORDERAB LES OUTSIDE LAB (SEE SCANNED REPORT) * (ABNORMAL) CHEMISTRY-OUTSIDE (09/18/2024) Not all results display below - see scan for full detail OUTSIDE LAB (SEE SCANNED REPORT) Comment:SCAN INCLUDES: CMP, CRP, TSH, CBCD, SED RATE CREATININE 1.00 0.40 - 1.50 MG/DL OUTSIDE LAB (SEE SCANNED REPORT) EGFR 77 >=60 ML/MIN OUTSIDE LAB (SEE SCANNED REPORT) POTASSIUM 4.5 3.6 - 5.0 MMOL/L OUTSIDE LAB (SEE SCANNED REPORT) GLUCOSE 140(A) 65 - 110 MG/DL OUTSIDE LAB (SEE SCANNED REPORT) HOURS FASTING OUTSID E LAB (SEE SCANNED REPORT) TRIGLYCERIDES-OUT SIDE LAB OUTSIDE LAB (SEE SCANNED REPORT) CHOLESTEROL-OUTSI DE LAB OUTSIDE LAB (SEE SCANNED REPORT) HDL-OUTSIDE LAB OUTS NEO LAB (SEE SCANNED REPORT) CHOL/HDL RATIO-OUTSIDE LAB OUTSIDE LA B (SEE SCANNED REPORT) LDL (CALCULATED)-OUTS NEO LAB OUTSIDE LAB (SEE SCANNED REPORT) LDL (DIRECT MEASURE)-OUTSIDE LAB OUTSIDE LAB (SEE SCANNED REPORT) HEMOGLOBIN, [id number] LAB OUTSIDE LAB (SEE SCANNED REPORT) PHOSPHORUS-OUTSID E LAB OUTSIDE LAB (SEE SCANNED REPORT) PTH-OUTSIDE LAB OUTS NEO LAB (SEE SCANNED REPORT) MICROALBUMIN RATIO-OUTSIDE LAB OUTSIDE LA B (SEE SCANNED REPORT) PROTEIN, UA-OUTSIDE LAB OUTSIDE LAB (SEE SCANNED REPORT) HGB 9.9(A) 14.0 - 18.0 GM/DL OUTSIDE LAB (SEE SCANNED REPORT) 09/18/2024 Saira Machado DO LABORATORY OUTSIDE LAB (SEE SCANNED REPORT) documented in this encounter Care Teams Inside Technical Sales Representative Relationship Specialty Start Date End Date Louisa Quiroga DO [address] [facility] [place] [place] [address] PCP - General Family Medicine 07/03/24 documented as of this encounter
--- OUTSIDE RECORDS SUMMARY | 2024-10-03 10:51 | External Medical Summary | Continuity Of Care Document ---
Author Name Unknown Address [address] [address] Organization [facility] () Care Team Providers Care Hand Mold Maker Name Role Phone DO Machado Amy Primary Care Provider [phone] Allergies Allergy Reaction Start Date End Date [...] 3 0.1 mL 08/29 Inactiv e 2023 71617 40388 0 1 time Intrad ermal False Tubersol 5 tub. unit/0.1 mL intradermal injection solution [Tuberculin PPD] 0.1mL Intradermal 1 time For PPD 2nd Step Give 2nd Step PPD Day 1 and Read results Day 3 (schedule 7 days after 1st READ) 0.1mL 09/08 Inactiv e 2023 23489 23020 0 1 time Intrad ermal False [facility] - Nurse initials indicate verificatio n that [id number] vaccine was administere d by [facility] [...] order For Diabetes 08/25 Inactiv e 2023 49765 18462 9 4 times a day Subcut aneous False Aspirin 325 mg tablet [generic] 325 By Mouth Twice daily For Anticoagulati on 325 09/25 Active 2023 59978 80276 1 Twice daily By Mouth False Ferrous sulfate 325 mg (65 mg iron) tablet [generic] 325 By Mouth Once daily For anemia 325 2023 Active 2023 97564 03542 5 Once daily By Mouth False Linezolid 600 mg tablet [generic] 600 mg By Mouth Every 12 hours For MRSA INFECTION L BKA 600 mg 08/25 Inactiv e 2023 44730 08507 1 Every 12 hours By Mouth False Cefpodoxime 200 mg tablet [generic] 400 mg By Mouth Twice daily For MRSA INFECTION L BKA 400 mg 08/25 Inactiv e 2023 97359 98630 0 Twice daily By Mouth False Coenzyme Q10 100 mg tablet [generic] 100 mg By Mouth Once daily For SUPP 100 mg 2023 Active 2023 78445 53726 0 Once daily By Mouth False Levothyroxi ne 50 mcg tablet [generic] 50mcg By Mouth Once daily For hypothyroidis m 50mcg 2023 Active 2023 55027 11842 0 Once daily By Mouth False One A Day Men Complete 240 mcg-25 mcg-300 mcg tablet 1 tab By Mouth Once daily For supplement 1 tab 2023 Active 2023 88485 68052 1 Once daily By Mouth False Cholecalcif adalberto (vitamin D3) 50 mcg (2,000 unit) tablet [generic] 1 TAB By Mouth Once daily For SUPP 1 TAB 2023 Active 2023 91626 09306 1 Once daily By Mouth False Cetirizine 10 mg tablet [generic] 1 TAB By Mouth At bedtime For Allergies 1 TAB 2023 Active 2023 00696 79637 0 At bedtime By Mouth False Timolol maleate 0.25 % eye drops [generic] 1 drop Both Eyes Twice daily For glaucoma 1 drop 2023 Active 2023 58660 65904 5 Twice daily Both Eyes False Alendronate 35 mg tablet [generic] 35mg By Mouth Every week For SIADH 35mg 08/31 Inactiv e 2023 13100 77877 5 Every week By Mouth False Lantus Solostar U-100 Insulin 100 unit/mL (3 mL) subcutaneou s pen 18 units Subcutaneous Every morning For DIABETES 18 units 08/25 Inactiv e 2023 95729 32866 0 Every morning Subcut aneous False Lantus Solostar U-100 Insulin 100 unit/mL (3 mL) subcutaneou s pen 18 units Subcutaneous Every morning For DIABETES 18 units 2023 Active 2023 14871 05749 0 Every morning Subcut aneous False Linezolid 600 mg tablet [generic] 600 mg By Mouth Every 12 hours For MRSA INFECTION L BKA 600 mg 08/28 Inactiv e 2023 18188 14087 1 Every 12 hours By Mouth False [...] order For Diabetes 08/31 Inactiv e 2023 59132 44391 9 4 times a day Subcut aneous False Cefpodoxime 200 mg tablet [generic] 400 mg By Mouth Twice daily For MRSA INFECTION L BKA 400 mg 08/28 Inactiv e 2023 75736 80010 0 Twice daily By Mouth False Brimonidine 0.1 % eye drops [generic] 1 drop Both Eyes Twice daily For glaucoma 1 drop 2023 Active 2023 22919 56280 0 Twice daily Both Eyes False Metoprolol succinate ER 50 mg tablet,exte nded release 24 hr [generic] 50 mg By Mouth Once daily HOLD FOR SBP <100, or pulse <60 For HTN 50 mg 2023 Active 2023 82188 83443 1 Once daily By Mouth False Amlodipine 2.5 mg tablet [generic] 2.5 mg By Mouth Once daily For HTN 2.5 mg 2023 Active 2023 40720 99761 5 Once daily By Mouth False Docusate sodium 100 mg capsule [generic] 100mg By Mouth Twice daily as needed For constipation HOLD FOR LOOSE STOOLS 100mg 2023 Active 2023 29325 04976 1 Twice daily as needed By Mouth False Atorvastati n 40 mg tablet [generic] 40mg By Mouth Once daily For HDL 40mg 08/26 Inactiv e 2023 46022 41234 5 Once daily By Mouth False Tylenol 325 mg tablet 2 tabs By Mouth Every 4 hours as needed For Pain DO NOT EXCEED 3000 MG APAP/24 Hours 2 tabs 2023 Active 2023 57998 40404 0 Every 4 hours as needed By Mouth False Tylenol 325 mg tablet 2 tabs By Mouth Every 4 hours as needed For Fever >100 DO NOT EXCEED 3000 MG APAP/24 Hours 2 tabs 2023 Active 2023 76893 46024 0 Every 4 hours as needed By Mouth False Dulcolax (bisacodyl) 10 mg rectal suppository One Suppository per rectum PRN if Milk of Magnisia ineffective. Give on day 5 of no BM 1 sup 2023 Active 2023 87610 17293 1 Daily as needed Rectal False Fleet Enema 19 gram-7 gram/118 mL Administer per rectum PRN one time if dulcolax suppository not effective. Give on day 6 of no BM 1 2023 Active 2023 00501 88439 6 Daily as needed Rectal False Dextrose 50 % in water (D50W) intravenous solution [generic] Dextrose 50% evonne 20-50 ml (slow push) Intravenous if Glucagon not effective after 15 minutes. CALL 911 for ED Evaluation. 50% evonne 2023 Active 2023 66365 21327 9 Intrav enous False Glucagon (HCl) Emergency Kit 1 mg solution for injection Administer Glucagon 1 mg Intramuscular if 15 minutes after GLucose Gel is administered Glucose remains less than 70 1 mg 2023 Active 2023 58229 57862 2 Intram uscula r False Glucose Gel 40 % oral gel [Dextrose] PRN If resident is unable to swallow (with or without symptoms) and Glucose results less than 70 give GLucose 40% Gel 1 tube orally - Recheck Glucose 15 minutes after administratio n. 1 tube 2023 Active 2023 02564 79607 8 By Mouth False Milk of Magnesia 400 mg/5 mL oral suspension [Magnesium hydroxide] PRN 30ml By Mouth Daily as needed for constipation one time daily if no BM, on day 4 of no BM (PRN refer to instructions) For Constipation 30 mL 2023 Active 2023 48852 43678 6 Daily as needed By Mouth False Atorvastati n 40 mg tablet [generic] 08/26 Inactiv e 2023 00423 49749 5 Atorvastati n 40 mg tablet [generic] 40mg By Mouth Once daily For HDL 40mg 2023 Active 2023 19449 18143 5 Once daily By Mouth False Insulin aspart (U-100) 100 unit/mL (3 mL) subcutaneou s pen [generic] 15 units Subcutaneous 1 time For dm 15 units 08/26 Inactiv e 2023 36266 31325 5 1 time Subcut aneous False Humalog KwikPen (U-100) Insulin 100 unit/mL subcutaneou s 15 units Subcutaneous 1 time For dm 15 units 08/27 Inactiv e 2023 59181 08122 9 1 time Subcut aneous False Linezolid 600 mg tablet [generic] 600 mg By Mouth Every 12 hours For MRSA INFECTION L BKA 600 mg 09/06 Inactiv e 2023 02481 04472 1 Every 12 hours By Mouth False Cefpodoxime 200 mg tablet [generic] 400 mg By Mouth Twice daily For MRSA INFECTION L BKA 400 mg 08/31 Inactiv e 2023 14804 02594 0 Twice daily By Mouth False Senna 8.6 mg tablet 8.6 mg By Mouth Once daily For Constipation 8.6 mg 09/07 Inactiv e 2023 10072 77061 1 Once daily By Mouth False Humalog [...] . Per Carb 09/19 Inactiv e 2023 41220 50079 9 4 times a day Subcut aneous False Alendronate 35 mg tablet [generic] 08/31 Inactiv e 2023 53429 53347 5 Alendronate 35 mg tablet [generic] 35mg By Mouth Every week For Osteoporosis 35mg 09/21 Inactiv e 2023 57683 44277 5 Every week By Mouth False ProSource 10 gram-100 kcal/30 mL oral liquid 30 ml By Mouth Once daily For wound healing 30 ml 2023 Active 2023 54553 16679 2 Once daily By Mouth False Clotrimazol e 1 % topical cream [generic] 1 applicaiton Topical Twice daily For tinea, apply to groin rash after cleansing and throughouly drying. Can discontinue order 3 days after rash resolves. 1 applica stacy 09/08 Inactiv e 2023 90727 82699 0 Twice daily Topica l False MAGIC MIX 1:1:1:1 : ZINC OXIDE EXTERNAL OINTMENT 40%; HYDROCOTISO NE EXTERNAL CREAM 1%; NYSTATIN EXTERNAL CREAM 393931G/GM; SILVADENE CREAM 1% Every shift Apply topically to MASD area on coccyx/buttoc ks each shift and as needed for incontinence care For MASD on coccyx layer 2023 Active 2023 Every shift Topica l False Senna 8.6 mg tablet 8.6 mg By Mouth Once daily For Constipation 8.6 mg 09/07 Inactiv e 2023 21617 88776 1 Once daily By Mouth False Senna 8.6 mg tablet 8.6 mg By Mouth Once daily As Needed For Constipation 8.6 mg 2023 Active 2023 06313 14320 1 Once daily By Mouth False BD AutoShield Duo Pen Needle 30 gauge x 3/16in 1 pen needle Subcutaneous 4 times a day For DM 1 pen needle 202300 Active 2023 63773 56240 5 4 times a day Subcut aneous False Hydrocortis one 1 % topical ointment [generic] 1 application Topical Twice daily For tinea *mix 1:1 with clotrimazole cream and apply to clean/dry groin rash 1 applica peggy 09/19 Inactiv e 2023 14163 39848 6 Twice daily Topica l False Clotrimazol e 1 % topical cream [generic] 1 applicaiton Topical Twice daily For tinea, apply to groin rash after cleansing and throughouly drying. MIX WITH HYDROCORTISON E Can discontinue order 3 days after rash resolves. 1 applica stacy 2023 Active 2023 25993 84889 0 Twice daily Topica l False Humalog KwikPen (U-100) Insulin 100 unit/mL subcutaneou s 09/19 Inactiv e 2023 52742 48215 9 Humalog KwikPen (U-100) Insulin 100 unit/mL subcutaneou [...] be notified of abnormalities . Per Carb 2023 Active 2023 23817 69612 9 4 times a day Subcut aneous False Humalog KwikPen (U-100) Insulin 100 unit/mL subcutaneou s 10 units Subcutaneous 1 time For DM 10 units 09/20 Inactiv e 2023 61614 37499 9 1 time Subcut aneous False Alendronate 35 mg tablet [generic] 09/21 Inactiv e 2023 46108 53957 5 Alendronate 35 mg tablet [generic] 35mg By Mouth Every week For Osteoporosis take with a full glass of water on an empty stomach no other food or medication remain upright do not crush 35mg 2023 Active 2023 44885 88773 5 Every week By Mouth False Humalog KwikPen (U-100) Insulin 100 unit/mL subcutaneou s 08/31 Inactiv e 2023 86218 36620 9 MediHoney HCS 4 1/2in X 4 1/2in bandage Cleanse area with NSS, apply one medihoney hydrocolloid dressing, non adherent dressing, kerlix secure with paper tape daily. For wound stage III 1 09/19 Inactiv e 2023 50020 08626 1 Once daily Topica l False Betadine 10 % topical solution wound care cleanse withnormal saline, apply gauze soaked in betadine, leave on 5 minutes pat dry leave open to air 1 2023 Active 2023 89844 28983 1 Once daily Topica l False Problems Code Description Start Date End Date Status D64.9 Anemia, unspecified 08/25/2024 Activ e I25.10 Atherosclerotic hear t disease of [place] coronary artery without angina pectoris 08/25/2024 Active [...] weight Temperature SpO2 Blood Sugar Pulse Respirations 68092 8 67.00 mm[Hg] - Sitting 145.00 mm[Hg] - Sitting 98.50 Forehead Scan 96.00 % 81.00/ min 16.00/min 11815 004 11806 2 67.00 mm[Hg] - Sitting 145.00 mm[Hg] - Sitting 98.50 Tympanic 81.00/ min 16.00/min 06995 004 73285 5 56.00 mm[Hg] - Sitting 142.00 mm[Hg] - Sitting 136.40 NI 100.20 Tympanic 96.00 % 92.00/ min 18.00/min 93439 004 21814 6 09245 004 86499 4 143.00 mg/dL 004 18639 0 97.80 Tympanic 68738 005 14752 7 60.00 mm[Hg] - Sitting 140.00 mm[Hg] - Sitting 98.00 Tympanic 84.00/ min 18.00/min 84212 005 73009 0 63.00 mm[Hg] - Sitting 141.00 mm[Hg] - Sitting 98.20 Tympanic 92.00 % 63.00/ min 16.00/min 25571 005 66451 8 69.00 mm[Hg] - Sitting 106.00 mm[Hg] - Sitting 97.20 Tympanic 56568 005 16770 7 69.00/ min 16.00/min 66710 005 13245 3 69.00 mm[Hg] - Sitting 106.00 mm[Hg] - Sitting 98.20 Tympanic 69.00/ min 16.00/min 22243 005 67946 1 367.00 mg/dL 43001 005 62885 2 97.20 Tympanic 77634 005 26776 4 97.20 Tympanic 42804 005 00620 0 69.00 mm[Hg] - Sitting 106.00 mm[Hg] - Sitting 69.00/ min 11272 005 09571 3 452.00 mg/dL 43984 005 35548 3 452.00 mg/dL 20742 005 41333 5 352.00 mg/dL 95424 005 98165 3 352.00 mg/dL 82657 005 89945 7 98.20 Tympanic 80915 005 30428 3 101.00 mg/dL 81568 005 8 101.00 mg/dL 81384 006 07478 4 66.00 mm[Hg] - Sitting 107.00 mm[Hg] - Sitting 98.00 Tympanic 66.00/ min 18.00/min 38168 006 45028 0 62.00 mm[Hg] - Sitting 162.00 mm[Hg] - Sitting 98.20 Tympanic 96.00 % 60.00/ min 16.00/min 11308 006 79322 4 62.00 mm[Hg] - Sitting 162.00 mm[Hg] - Sitting 98.00 Tympanic 70.00/ min 18.00/min 28008 006 43576 8 62.00 mm[Hg] - Sitting 162.00 mm[Hg] - Sitting 98.20 Tympanic 70.00/ min 18.00/min 14718 006 13355 2 66.00 mm[Hg] - Sitting 132.00 mm[Hg] - Sitting 98.60 Tympanic 74.00/ min 16.00/min 79506 006 11778 5 159.00 mg/dL 03617 006 10440 1 159.00 mg/dL 03823 006 02339 8 98.00 Tympanic 66777 006 64355 2 62.00 mm[Hg] - Sitting 162.00 mm[Hg] - Sitting 70.00/ min 52857 006 27145 7 264.00 mg/dL 32993 006 74366 7 264.00 mg/dL 86249 006 46963 4 196.00 mg/dL 40744 006 18184 3 98.20 Tympanic 44460 006 11251 6 271.00 mg/dL 18505 007 63104 3 97.20 Tympanic 25660 007 08991 2 63.00 mm[Hg] - Sitting 132.00 mm[Hg] - Sitting 98.50 Tympanic 94.00 % 66.00/ min 16.00/min 42195 007 79346 5 188.00 mg/dL 61915 007 65338 2 188.00 mg/dL 88823 007 40444 2 188.00 mg/dL 34097 007 21302 7 97.20 Tympanic 82922 007 90935 6 97.20 Tympanic 91192 007 45409 5 67.00 mm[Hg] - Sitting 152.00 mm[Hg] - Sitting 68.00/ min 30961 007 34628 0 141.00 mg/dL 60021 007 10847 3 141.00 mg/dL 87253 007 06408 1 366.00 mg/dL 85950 007 93865 7 366.00 mg/dL 09121 007 07105 7 98.00 Tympanic 64063 007 96219 6 324.00 mg/dL 09891 007 50542 3 98.00 Tympanic 29653 007 70046 7 324.00 mg/dL 54758 008 34069 0 98.00 Tympanic 07980 008 95663 2 97.90 Tympanic 24704 008 12045 0 98.20 Tympanic 35065 008 84431 0 73.00 mm[Hg] - Sitting 156.00 mm[Hg] - Sitting 98.60 Tympanic 99.00 % 66.00/ min 20.00/min 78919 008 89654 5 137.00 mg/dL 92818 008 38014 7 137.00 mg/dL 78527 008 65517 2 97.90 Tympanic 08460 008 10806 1 137.00 mg/dL 27016 008 99497 8 97.90 Tympanic 43348 008 26039 5 67.00 mm[Hg] - Sitting 124.00 /min 15696 008 33844 6 212.00 mg/dL 22706 008 33170 6 212.00 mg/dL 01598 008 52718 9 317.00 mg/dL 95415 008 36522 4 317.00 mg/dL 42207 008 56326 8 252.00 mg/dL 69806 008 37588 0 98.70 Tympanic 16698 008 88869 7 252.00 mg/dL 91118 008 72155 3 98.70 Tympanic 65606 009 14785 9 98.70 Tympanic 48703 009 42541 3 98.20 Tympanic 61817 009 56154 5 98.40 Tympanic 69718 009 11131 5 57.00 mm[Hg] - Sitting 129.00 mm[Hg] - Sitting 98.30 Tympanic 97.00 % 65.00/ min 18.00/min 60621 009 54880 1 255.00 mg/dL 30638 009 62958 4 255.00 mg/dL 20656 009 33370 5 98.20 Tympanic 37453 009 09901 0 255.00 mg/dL 45073 009 17806 0 98.20 Tympanic 45890 009 64804 4 63.00 mm[Hg] - Lying Down 102.00 mm[Hg] - Lying Down 58.00/ min 50593 009 78808 0 167.00 mg/dL 33004 009 84004 1 167.00 mg/dL 09953 009 52824 2 164.00 mg/dL 46819 009 11654 1 164.00 mg/dL 39794 009 95392 5 208.00 mg/dL 82561 010 30181 3 98.40 Tympanic 12800 010 68010 5 98.40 Tympanic 38004 010 09334 7 66 NI 42460 010 47742 4 60.00 mm[Hg] - Sitting 143.00 mm[Hg] - Sitting 98.90 Tympanic 98.00 % 67.00/ min 18.00/min 53140 010 27860 2 214.00 mg/dL 48777 010 75904 0 214.00 mg/dL 53894 010 88256 7 214.00 mg/dL 35358 010 42628 6 64.00 mm[Hg] - Sitting 110.00 mm[Hg] - Sitting 72.00/ min 88196 010 16950 7 98.40 Tympanic 59594 010 33928 1 212.00 mg/dL 61115 010 71436 2 212.00 mg/dL 20793 010 86117 1 115.00 mg/dL 74158 010 98482 0 115.00 mg/dL 26273 010 34829 4 98.50 Tympanic 43349 010 16968 4 150.00 mg/dL 19191 010 46242 0 150.00 mg/dL 27266 011 22946 9 98.60 Tympanic 17021 011 10860 1 67.00 mm[Hg] - Sitting 144.00 mm[Hg] - Sitting 98.20 Tympanic 98.00 % 61.00/ min 18.00/min 59193 011 37543 7 290.00 mg/dL 23717 011 22428 2 290.00 mg/dL 15444 011 53796 2 290.00 mg/dL 33622 011 64558 7 54.00 mm[Hg] - Sitting 136.00 mm[Hg] - Sitting 101.00 /min 99079 011 33766 7 98.60 Tympanic 92181 011 16066 5 240.00 mg/dL 37591 011 94957 1 240.00 mg/dL 08774 011 94074 1 156.00 mg/dL 08951 011 69397 9 156.00 mg/dL 08519 011 03131 0 97.80 Tympanic 04878 011 72842 8 343.00 mg/dL 83448 012 81993 9 97.90 Tympanic 63044 012 75368 2 466.00 mg/dL 78802 012 10025 1 466.00 mg/dL 60575 012 53572 3 466.00 mg/dL 88871 012 68522 8 97.90 Tympanic 73791 012 84596 8 56.00 mm[Hg] - Sitting 96.00 mm[Hg] - Sitting 61.00/ min 41249 012 96750 7 350.00 mg/dL 36173 012 39610 5 350.00 mg/dL 32620 012 87920 6 111.00 mg/dL 31431 012 74063 0 111.00 mg/dL 77172 012 42129 5 98.40 Tympanic 87280 012 92644 6 114.00 mg/dL 95026 013 85789 4 74.00 mm[Hg] - Sitting 112.00 mm[Hg] - Sitting 98.40 Tympanic 70.00/ min 18.00/min 97698 013 36923 8 244.00 mg/dL 63754 013 24927 7 244.00 mg/dL 65945 013 83077 1 244.00 mg/dL 69831 013 78832 1 98.20 Tympanic 87959 013 78026 7 72.00 mm[Hg] - Sitting 119.00 mm[Hg] - Sitting 76.00/ min 62994 013 41425 7 253.00 mg/dL 13609 013 59650 4 253.00 mg/dL 67993 013 29226 9 156.00 mg/dL 99854 013 77877 5 156.00 mg/dL 43961 013 31677 4 97.90 Tympanic 72513 013 05745 5 189.00 mg/dL 69931 014 03127 9 98.10 Tympanic 20089 014 60347 0 61.00 mm[Hg] - Sitting 139.00 mm[Hg] - Sitting 98.20 Forehead Scan 99.00 % 66.00/ min 18.00/min 87617 014 27923 3 169.00 mg/dL 59896 014 30039 3 98.10 Tympanic 08221 014 63688 3 75.00 mm[Hg] - Sitting 121.00 mm[Hg] - Sitting 71.00/ min 74336 014 62571 9 221.00 mg/dL 29525 014 11597 9 62.00 mg/dL 97069 014 74651 5 62.00 mg/dL 58932 014 85047 8 156.00 mg/dL 91301 014 82211 6 98.10 Tympanic 32404 014 15161 7 156.00 mg/dL 80310 015 46060 4 43052 015 72708 7 62.00 mm[Hg] - Sitting 142.00 mm[Hg] - Sitting 98.20 Tympanic 99.00 % 67.00/ min 18.00/min 99783 015 84641 9 120.00 mg/dL 23547 015 47140 7 98.00 Tympanic 56501 015 21389 2 82.00 mm[Hg] - Sitting 119.00 /min 46929 015 98882 9 110.00 mg/dL 72544 015 33588 6 104.00 mg/dL 34484 015 52709 0 100.00 mg/dL 02253 015 62672 2 98.10 Tympanic 35725 015 95284 6 100.00 mg/dL 54515 016 49273 2 67.00 mm[Hg] - Sitting 147.00 mm[Hg] - Sitting 99.00 Tympanic 99.00 % 78.00/ min 20.00/min 97645 016 88023 5 158.00 mg/dL 80495 016 20396 1 158.00 mg/dL 94242 016 38366 2 158.00 mg/dL 27382 016 15248 0 66.00 mm[Hg] - Sitting 121.00 mm[Hg] - Sitting 74.00/ min 56429 016 93035 1 97.00 mg/dL 92689 016 96242 5 97.00 mg/dL 00345 016 33547 4 78.00 mg/dL 22986 016 10320 6 78.00 mg/dL 48767 016 47926 5 248.00 mg/dL 89794 016 44183 8 248.00 mg/dL 01557 017 33048 3 54.00 mm[Hg] - Sitting 142.00 mm[Hg] - Sitting 98.30 Tympanic 99.00 % 76.00/ min 18.00/min 41463 017 94400 4 267.00 mg/dL 44857 017 35711 6 73.00 mm[Hg] - Sitting 109.00 mm[Hg] - Sitting 70.00/ min 82588 017 22705 1 184.00 mg/dL 09300 017 21211 5 184.00 mg/dL 17572 017 63386 9 248.00 mg/dL 36388 017 32121 8 299.00 mg/dL 63720 017 16389 3 299.00 mg/dL 05709 018 98816 7 50.00 mm[Hg] - Sitting 125.00 mm[Hg] - Sitting 98.30 Tympanic 98.00 % 76.00/ min 16.00/min 62745 018 13988 3 168.00 mg/dL 33529 018 53034 0 75.00 mm[Hg] - Sitting 121.00 mm[Hg] - Sitting 70.00/ min 04437 018 86560 7 264.00 mg/dL 94722 018 48889 6 132.00 mg/dL 87289 018 09156 6 154.00 mg/dL 77143 018 12692 6 154.00 mg/dL 92499 019 01400 4 63.00 mm[Hg] - Sitting 147.00 mm[Hg] - Sitting 98.50 Tympanic 99.00 % 69.00/ min 18.00/min 62207 019 40921 9 159.00 mg/dL 16202 019 38387 8 73.00 mm[Hg] - Sitting 110.00 mm[Hg] - Sitting 72.00/ min 95624 019 19464 4 191.00 mg/dL 29769 019 16906 8 70.00 mg/dL 04754 019 77971 4 70.00 mg/dL 17863 019 59204 6 198.00 mg/dL 12828 019 36430 0 198.00 mg/dL 17467 020 86556 2 59.00 mm[Hg] - Sitting 131.00 mm[Hg] - Sitting 98.90 Tympanic 99.00 % 69.00/ min 18.00/min 94748 020 53388 7 299.00 mg/dL 53129 020 26421 0 62.00 mm[Hg] - Sitting 132.00 mm[Hg] - Sitting 68.00/ min 96492 020 87358 3 299.00 mg/dL 81423 020 71866 3 299.00 mg/dL 69996 020 91209 9 220.00 mg/dL 14725 020 91597 1 220.00 mg/dL 29571 020 54075 1 270.00 mg/dL 41517 020 08619 4 270.00 mg/dL 03246 020 73231 9 143.00 mg/dL 04340 020 61377 4 143.00 mg/dL 11742 021 26793 0 59.00 mm[Hg] - Sitting 121.00 mm[Hg] - Sitting 98.40 Forehead Scan 98.00 % 70.00/ min 16.00/min 45384 021 58571 0 140.00 mg/dL 92698 021 44423 0 67.00 mm[Hg] - Sitting 130.00 mm[Hg] - Sitting 68.00/ min 90021 021 09040 8 140.00 mg/dL 78800 021 55967 6 140.00 mg/dL 13827 021 56118 8 156.00 mg/dL 15904 021 02157 1 156.00 mg/dL 47931 021 72114 5 146.00 mg/dL 31548 021 28670 4 146.00 mg/dL 99033 021 20265 5 183.00 mg/dL 89008 021 99152 2 183.00 mg/dL 30481 022 61233 3 57564 022 03983 1 43.00 mm[Hg] - Sitting 113.00 mm[Hg] - Sitting 97.80 Tympanic 97.00 % 64.00/ min 18.00/min 82520 022 04864 6 270.00 mg/dL 10271 022 14551 5 68.00 mm[Hg] - Sitting 122.00 mm[Hg] - Sitting 67.00/ min 09844 022 82549 9 270.00 mg/dL 80763 022 23457 4 270.00 mg/dL 55185 022 20807 4 207.00 mg/dL 48161 022 85813 8 207.00 mg/dL 65532 022 38682 9 217.00 mg/dL 21867 022 66387 2 217.00 mg/dL 97868 022 20223 0 192.00 mg/dL 33987 022 18869 9 192.00 mg/dL 79471 023 96278 8 48.00 mm[Hg] - Sitting 116.00 mm[Hg] - Sitting 98.50 Tympanic 97.00 % 63.00/ min 18.00/min 45340 023 61433 9 68.00 mm[Hg] - Sitting 131.00 mm[Hg] - Sitting 68.00/ min 61422 023 86269 8 235.00 mg/dL 15047 023 18192 4 235.00 mg/dL 53308 023 41256 0 235.00 mg/dL 98610 023 22998 0 199.00 mg/dL 14982 023 63254 7 199.00 mg/dL 51553 023 17394 4 233.00 mg/dL 15970 023 53301 3 233.00 mg/dL 83547 023 56236 6 229.00 mg/dL 27792 023 74076 4 229.00 mg/dL 59687 024 74503 3 58.00 mm[Hg] - Sitting 102.00 mm[Hg] - Sitting 58.00/ min 74283 024 90888 9 156.00 mg/dL 89676 024 50703 4 156.00 mg/dL 29640 024 63765 3 156.00 mg/dL 95851 024 10489 0 343.00 mg/dL 01708 024 76417 6 343.00 mg/dL 50413 024 27048 2 167.00 mg/dL 74250 024 13567 0 167.00 mg/dL 06495 024 53404 8 155.00 mg/dL 67539 024 94400 7 155.00 mg/dL 56335 025 13204 0 51.00 mm[Hg] - Lying Down 109.00 mm[Hg] - Lying Down 98.60 Tympanic 95.00 % 67.00/ min 20.00/min 92783 025 94349 0 60.00 mm[Hg] - Sitting 118.00 mm[Hg] - Sitting 98.30 Forehead Scan 98.00 % 68.00/ min 16.00/min 73971 025 08953 3 235.00 mg/dL 59729 025 83929 1 63.00 mm[Hg] - Sitting 110.00 mm[Hg] - Sitting 75.00/ min 70828 025 99477 9 295.00 mg/dL 78282 025 42309 4 94.00 mg/dL 26652 025 41504 1 132.00 mg/dL 51778 025 30021 2 132.00 mg/dL 30915 026 86235 8 50.00 mm[Hg] - Sitting 123.00 mm[Hg] - Sitting 98.50 Tympanic 95.00 % 66.00/ min 18.00/min 74166 026 99605 0 275.00 mg/dL 37863 026 04438 7 275.00 mg/dL 04677 026 98471 1 275.00 mg/dL 15701 026 50711 6 67.00 mm[Hg] - Sitting 123.00 mm[Hg] - Sitting 66.00/ min 77402 026 65933 3 187.00 mg/dL 87928 026 16866 5 187.00 mg/dL 18799 026 57050 0 167.00 mg/dL 44772 026 92970 8 167.00 mg/dL 23808 026 71290 6 387.00 mg/dL 14687 027 95969 7 53.00 mm[Hg] - Sitting 132.00 mm[Hg] - Sitting 98.60 Tympanic 97.00 % 64.00/ min 18.00/min 08918 027 70586 9 189.00 mg/dL 53743 027 83202 4 67.00 mm[Hg] - Sitting 118.00 mm[Hg] - Sitting 66.00/ min 65872 027 23899 2 189.00 mg/dL 03185 027 79052 7 189.00 mg/dL 69553 027 70030 1 105.00 mg/dL 26807 027 54711 8 105.00 mg/dL 84105 027 65931 4 223.00 mg/dL 20850 027 30982 9 223.00 mg/dL 11057 027 36363 9 164.00 mg/dL 60628 028 32318 0 68.00 mm[Hg] - Sitting 115.00 mm[Hg] - Sitting 98.60 Forehead Scan 96.00 % 71.00/ min 16.00/min 65180 028 69113 1 200.00 mg/dL 06417 028 84771 9 200.00 mg/dL 57653 028 91168 1 69.00 mm[Hg] - Sitting 122.00 mm[Hg] - Sitting 67.00/ min 50380 028 44110 3 200.00 mg/dL 01054 028 16754 0 117.00 mg/dL 30215 028 09113 0 117.00 mg/dL 40297 028 23007 1 114.00 mg/dL 80761 028 60274 7 114.00 mg/dL 85592 028 87369 0 179.00 mg/dL 18445 028 09472 8 179.00 mg/dL 42438 029 28970 4 44.00 mm[Hg] - Sitting 121.00 mm[Hg] - Sitting 98.30 Tympanic 97.00 % 65.00/ min 18.00/min 62187 029 25964 9 147.00 mg/dL 33797 029 45944 0 147.00 mg/dL 10491 029 97585 4 147.00 mg/dL 69490 029 65498 1 63.00 mm[Hg] - Sitting 118.00 mm[Hg] - Sitting 74.00/ min 48298 029 43167 2 278.00 mg/dL 16202 029 47395 3 278.00 mg/dL 96360 029 71523 1 241.00 mg/dL 09127 029 94162 8 97604 029 89557 1 504.00 mg/dL 24863 030 21547 0 54.00 mm[Hg] - Sitting 122.00 mm[Hg] - Sitting 98.40 Tympanic 98.00 % 70.00/ min 18.00/min 81337 030 71744 4 242.00 mg/dL 92750 030 01876 8 68.00 mm[Hg] - Sitting 121.00 mm[Hg] - Sitting 68.00/ min 10264 030 26263 2 242.00 mg/dL 18639 030 60008 3 170.00 mg/dL 70423 030 12407 0 170.00 mg/dL 98562 030 00011 4 200.00 mg/dL 59051 030 56759 7 200.00 mg/dL 30813 030 19109 3 131.00 mg/dL 35482 030 05570 5 131.00 mg/dL 42814 031 41461 2 150.00 mg/dL 51041 031 61185 6 60.00 mm[Hg] - Sitting 108.00 mm[Hg] - Sitting 60.00/ min [id number] 031 38402 8 150.00 mg/dL 64830 031 69508 4 140.00 mg/dL 46115 031 79178 7 140.00 mg/dL 54385 031 88570 9 140.00 mg/dL 95109 031 66595 0 140.00 mg/dL 67308 031 21611 7 153.00 mg/dL 55696 031 45303 8 153.00 mg/dL 69446 101 96419 2 18.00/mi n 16154 101 04403 8 250.00 mg/dL Immunizations Vaccine Date Status COVID-19 09/20/2023 Completed Influenza 09/14/2024 Completed Other 10/08/2023 Completed Shingles 05/27/2011 Completed Tetanus 04/13/2022 Completed TDaP 04/13/2022 Completed Shingles 2 10/05/2018 Completed
--- OUTSIDE RECORDS SUMMARY | 2024-10-03 10:51 | External Medical Summary | Continuity Of Care Document ---
Author Name Unknown Address [address] [address] Organization [facility] () Care Team Providers Care Warehouse Coordinator Name Role Phone DO Machado Amy Primary Care Provider [phone] Allergies Allergy Reaction Start Date End Date [...] 3 0.1 mL 08/29 Inactiv e 2023 44698 54548 0 1 time Intrad ermal False Tubersol 5 tub. unit/0.1 mL intradermal injection solution [Tuberculin PPD] 0.1mL Intradermal 1 time For PPD 2nd Step Give 2nd Step PPD Day 1 and Read results Day 3 (schedule 7 days after 1st READ) 0.1mL 09/08 Inactiv e 2023 46657 16838 0 1 time Intrad ermal False [facility] - Nurse initials indicate verificatio n that [id number] vaccine was administere d by [facility] [...] order For Diabetes 08/25 Inactiv e 2023 73211 15596 9 4 times a day Subcut aneous False Aspirin 325 mg tablet [generic] 325 By Mouth Twice daily For Anticoagulati on 325 09/25 Active 2023 08935 00968 1 Twice daily By Mouth False Ferrous sulfate 325 mg (65 mg iron) tablet [generic] 325 By Mouth Once daily For anemia 325 2023 Active 2023 63998 73081 5 Once daily By Mouth False Linezolid 600 mg tablet [generic] 600 mg By Mouth Every 12 hours For MRSA INFECTION L BKA 600 mg 08/25 Inactiv e 2023 25455 42014 1 Every 12 hours By Mouth False Cefpodoxime 200 mg tablet [generic] 400 mg By Mouth Twice daily For MRSA INFECTION L BKA 400 mg 08/25 Inactiv e 2023 64097 94747 0 Twice daily By Mouth False Coenzyme Q10 100 mg tablet [generic] 100 mg By Mouth Once daily For SUPP 100 mg 2023 Active 2023 69654 48756 0 Once daily By Mouth False Levothyroxi ne 50 mcg tablet [generic] 50mcg By Mouth Once daily For hypothyroidis m 50mcg 2023 Active 2023 08141 92494 0 Once daily By Mouth False One A Day Men Complete 240 mcg-25 mcg-300 mcg tablet 1 tab By Mouth Once daily For supplement 1 tab 2023 Active 2023 12058 04248 1 Once daily By Mouth False Cholecalcif adalberto (vitamin D3) 50 mcg (2,000 unit) tablet [generic] 1 TAB By Mouth Once daily For SUPP 1 TAB 2023 Active 2023 43748 50862 1 Once daily By Mouth False Cetirizine 10 mg tablet [generic] 1 TAB By Mouth At bedtime For Allergies 1 TAB 2023 Active 2023 36626 77023 0 At bedtime By Mouth False Timolol maleate 0.25 % eye drops [generic] 1 drop Both Eyes Twice daily For glaucoma 1 drop 2023 Active 2023 50853 57193 5 Twice daily Both Eyes False Alendronate 35 mg tablet [generic] 35mg By Mouth Every week For SIADH 35mg 08/31 Inactiv e 2023 50236 92048 5 Every week By Mouth False Lantus Solostar U-100 Insulin 100 unit/mL (3 mL) subcutaneou s pen 18 units Subcutaneous Every morning For DIABETES 18 units 08/25 Inactiv e 2023 69017 23028 0 Every morning Subcut aneous False Lantus Solostar U-100 Insulin 100 unit/mL (3 mL) subcutaneou s pen 18 units Subcutaneous Every morning For DIABETES 18 units 2023 Active 2023 20767 46577 0 Every morning Subcut aneous False Linezolid 600 mg tablet [generic] 600 mg By Mouth Every 12 hours For MRSA INFECTION L BKA 600 mg 08/28 Inactiv e 2023 95025 13825 1 Every 12 hours By Mouth False [...] order For Diabetes 08/31 Inactiv e 2023 20685 59299 9 4 times a day Subcut aneous False Cefpodoxime 200 mg tablet [generic] 400 mg By Mouth Twice daily For MRSA INFECTION L BKA 400 mg 08/28 Inactiv e 2023 98623 04326 0 Twice daily By Mouth False Brimonidine 0.1 % eye drops [generic] 1 drop Both Eyes Twice daily For glaucoma 1 drop 2023 Active 2023 54132 01997 0 Twice daily Both Eyes False Metoprolol succinate ER 50 mg tablet,exte nded release 24 hr [generic] 50 mg By Mouth Once daily HOLD FOR SBP <100, or pulse <60 For HTN 50 mg 2023 Active 2023 64200 09942 1 Once daily By Mouth False Amlodipine 2.5 mg tablet [generic] 2.5 mg By Mouth Once daily For HTN 2.5 mg 2023 Active 2023 32956 48511 5 Once daily By Mouth False Docusate sodium 100 mg capsule [generic] 100mg By Mouth Twice daily as needed For constipation HOLD FOR LOOSE STOOLS 100mg 2023 Active 2023 26121 63049 1 Twice daily as needed By Mouth False Atorvastati n 40 mg tablet [generic] 40mg By Mouth Once daily For HDL 40mg 08/26 Inactiv e 2023 70565 53102 5 Once daily By Mouth False Tylenol 325 mg tablet 2 tabs By Mouth Every 4 hours as needed For Pain DO NOT EXCEED 3000 MG APAP/24 Hours 2 tabs 2023 Active 2023 38725 98416 0 Every 4 hours as needed By Mouth False Tylenol 325 mg tablet 2 tabs By Mouth Every 4 hours as needed For Fever >100 DO NOT EXCEED 3000 MG APAP/24 Hours 2 tabs 2023 Active 2023 83954 86339 0 Every 4 hours as needed By Mouth False Dulcolax (bisacodyl) 10 mg rectal suppository One Suppository per rectum PRN if Milk of Magnisia ineffective. Give on day 5 of no BM 1 sup 2023 Active 2023 50635 86521 1 Daily as needed Rectal False Fleet Enema 19 gram-7 gram/118 mL Administer per rectum PRN one time if dulcolax suppository not effective. Give on day 6 of no BM 1 2023 Active 2023 30139 28749 6 Daily as needed Rectal False Dextrose 50 % in water (D50W) intravenous solution [generic] Dextrose 50% evonne 20-50 ml (slow push) Intravenous if Glucagon not effective after 15 minutes. CALL 911 for ED Evaluation. 50% evonne 2023 Active 2023 20035 38838 9 Intrav enous False Glucagon (HCl) Emergency Kit 1 mg solution for injection Administer Glucagon 1 mg Intramuscular if 15 minutes after GLucose Gel is administered Glucose remains less than 70 1 mg 2023 Active 2023 55828 82020 2 Intram uscula r False Glucose Gel 40 % oral gel [Dextrose] PRN If resident is unable to swallow (with or without symptoms) and Glucose results less than 70 give GLucose 40% Gel 1 tube orally - Recheck Glucose 15 minutes after administratio n. 1 tube 2023 Active 2023 09921 30597 8 By Mouth False Milk of Magnesia 400 mg/5 mL oral suspension [Magnesium hydroxide] PRN 30ml By Mouth Daily as needed for constipation one time daily if no BM, on day 4 of no BM (PRN refer to instructions) For Constipation 30 mL 2023 Active 2023 97022 17163 6 Daily as needed By Mouth False Atorvastati n 40 mg tablet [generic] 08/26 Inactiv e 2023 17842 59701 5 Atorvastati n 40 mg tablet [generic] 40mg By Mouth Once daily For HDL 40mg 2023 Active 2023 08605 12032 5 Once daily By Mouth False Insulin aspart (U-100) 100 unit/mL (3 mL) subcutaneou s pen [generic] 15 units Subcutaneous 1 time For dm 15 units 08/26 Inactiv e 2023 76551 09741 5 1 time Subcut aneous False Humalog KwikPen (U-100) Insulin 100 unit/mL subcutaneou s 15 units Subcutaneous 1 time For dm 15 units 08/27 Inactiv e 2023 22514 64206 9 1 time Subcut aneous False Linezolid 600 mg tablet [generic] 600 mg By Mouth Every 12 hours For MRSA INFECTION L BKA 600 mg 09/06 Inactiv e 2023 56252 60246 1 Every 12 hours By Mouth False Cefpodoxime 200 mg tablet [generic] 400 mg By Mouth Twice daily For MRSA INFECTION L BKA 400 mg 08/31 Inactiv e 2023 76846 38274 0 Twice daily By Mouth False Senna 8.6 mg tablet 8.6 mg By Mouth Once daily For Constipation 8.6 mg 09/07 Inactiv e 2023 40401 72760 1 Once daily By Mouth False Humalog [...] . Per Carb 09/19 Inactiv e 2023 13669 22504 9 4 times a day Subcut aneous False Alendronate 35 mg tablet [generic] 08/31 Inactiv e 2023 14548 57268 5 Alendronate 35 mg tablet [generic] 35mg By Mouth Every week For Osteoporosis 35mg 09/21 Inactiv e 2023 80373 31051 5 Every week By Mouth False ProSource 10 gram-100 kcal/30 mL oral liquid 30 ml By Mouth Once daily For wound healing 30 ml 2023 Active 2023 48833 93940 2 Once daily By Mouth False Clotrimazol e 1 % topical cream [generic] 1 applicaiton Topical Twice daily For tinea, apply to groin rash after cleansing and throughouly drying. Can discontinue order 3 days after rash resolves. 1 applica stacy 09/08 Inactiv e 2023 59711 35880 0 Twice daily Topica l False MAGIC MIX 1:1:1:1 : ZINC OXIDE EXTERNAL OINTMENT 40%; HYDROCOTISO NE EXTERNAL CREAM 1%; NYSTATIN EXTERNAL CREAM [id number]/GM; SILVADENE CREAM 1% Every shift Apply topically to MASD area on coccyx/buttoc ks each shift and as needed for incontinence care For MASD on coccyx layer 2023 Active 2023 Every shift Topica l False Senna 8.6 mg tablet 8.6 mg By Mouth Once daily For Constipation 8.6 mg 09/07 Inactiv e 2023 71608 18376 1 Once daily By Mouth False Senna 8.6 mg tablet 8.6 mg By Mouth Once daily As Needed For Constipation 8.6 mg 2023 Active 2023 30970 54824 1 Once daily By Mouth False BD AutoShield Duo Pen Needle 30 gauge x 3/16in 1 pen needle Subcutaneous 4 times a day For DM 1 pen needle 202300 Active 2023 35004 94065 5 4 times a day Subcut aneous False Hydrocortis one 1 % topical ointment [generic] 1 application Topical Twice daily For tinea *mix 1:1 with clotrimazole cream and apply to clean/dry groin rash 1 applica peggy 09/19 Inactiv e 2023 75217 35440 6 Twice daily Topica l False Clotrimazol e 1 % topical cream [generic] 1 applicaiton Topical Twice daily For tinea, apply to groin rash after cleansing and throughouly drying. MIX WITH HYDROCORTISON E Can discontinue order 3 days after rash resolves. 1 applica stacy 2023 Active 2023 18175 48558 0 Twice daily Topica l False Humalog KwikPen (U-100) Insulin 100 unit/mL subcutaneou s 09/19 Inactiv e 2023 36395 37079 9 Humalog KwikPen (U-100) Insulin 100 unit/mL [...] abnormalities . Per Carb 2023 Active 2023 21975 59857 9 4 times a day Subcut aneous False Humalog KwikPen (U-100) Insulin 100 unit/mL subcutaneou s 10 units Subcutaneous 1 time For DM 10 units 09/20 Inactiv e 2023 19995 70121 9 1 time Subcut aneous False Alendronate 35 mg tablet [generic] 09/21 Inactiv e 2023 28470 49865 5 Alendronate 35 mg tablet [generic] 35mg By Mouth Every week For Osteoporosis take with a full glass of water on an empty stomach no other food or medication remain upright do not crush 35mg 2023 Active 2023 15971 87073 5 Every week By Mouth False Aspirin 325 mg tablet [generic] 325 By Mouth Twice daily For Anticoagulati on 325 2023 Active 2023 36480 11888 1 Twice daily By Mouth False Ferrous sulfate 325 mg (65 mg iron) tablet [generic] 325 By Mouth Once daily For anemia 325 2023 Active 2023 16515 88927 5 Once daily By Mouth False Coenzyme Q10 100 mg tablet [generic] 100 mg By Mouth Once daily For SUPP 100 mg 2023 Active 2023 54048 89864 0 Once daily By Mouth False Levothyroxi ne 50 mcg tablet [generic] 50mcg By Mouth Once daily For hypothyroidis m 50mcg 2023 Active 2023 34609 91108 0 Once daily By Mouth False One A Day Men Complete 240 mcg-25 mcg-300 mcg tablet 1 tab By Mouth Once daily For supplement 1 tab 2023 Active 2023 54448 68964 1 Once daily By Mouth False Cholecalcif adalberto (vitamin D3) 50 mcg (2,000 unit) tablet [generic] 1 TAB By Mouth Once daily For SUPP 1 TAB 2023 Active 2023 41128 26343 1 Once daily By Mouth False Cetirizine 10 mg tablet [generic] 1 TAB By Mouth At bedtime For Allergies 1 TAB 2023 Active 2023 30348 98904 0 At bedtime By Mouth False Timolol maleate 0.25 % eye drops [generic] 1 drop Both Eyes Twice daily For glaucoma 1 drop 2023 Active 2023 87706 89185 5 Twice daily Both Eyes False Lantus Solostar U-100 Insulin 100 unit/mL (3 mL) subcutaneou s pen 18 units Subcutaneous Every morning For DIABETES 18 units 2023 Active 2023 88935 82666 0 Every morning Subcut aneous False Brimonidine 0.1 % eye drops [generic] 1 drop Both Eyes Twice daily For glaucoma 1 drop 2023 Active 2023 28115 65308 0 Twice daily Both Eyes False Metoprolol succinate ER 50 mg tablet,exte nded release 24 hr [generic] 50 mg By Mouth Once daily HOLD FOR SBP <100, or pulse <60 For HTN 50 mg 2023 Active 2023 76546 79899 1 Once daily By Mouth False Amlodipine 2.5 mg tablet [generic] 2.5 mg By Mouth Once daily For HTN 2.5 mg 2023 Active 2023 66630 87724 5 Once daily By Mouth False Docusate sodium 100 mg capsule [generic] 100mg By Mouth Twice daily as needed For constipation HOLD FOR LOOSE STOOLS 100mg 2023 Active 2023 30136 80717 1 Twice daily as needed By Mouth False Atorvastati n 40 mg tablet [generic] 40mg By Mouth Once daily For HDL 40mg 2023 Active 2023 84875 66153 5 Once daily By Mouth False ProSource 10 gram-100 kcal/30 mL oral liquid 30 ml By Mouth Once daily For wound healing 30 ml 2023 Active 2023 58832 95128 2 Once daily By Mouth False MAGIC MIX 1:1:1:1 : ZINC OXIDE EXTERNAL OINTMENT 40%; HYDROCOTISO NE EXTERNAL CREAM 1%; NYSTATIN EXTERNAL CREAM [id number]/GM; SILVADENE CREAM 1% Every shift Apply topically to MASD area on coccyx/buttoc ks each shift and as needed for incontinence care For MASD on coccyx layer 2023 Active 2023 Every shift Topica l False Senna 8.6 mg tablet 8.6 mg By Mouth Once daily As Needed For Constipation 8.6 mg 2023 Active 2023 97628 35294 1 Once daily By Mouth False Clotrimazol e 1 % topical cream [generic] 1 applicaiton Topical Twice daily For tinea, apply to groin rash after cleansing and throughouly drying. MIX WITH HYDROCORTISON E Can discontinue order 3 days after rash resolves. 1 applica stacy 2023 Active 2023 31570 74056 0 Twice daily Topica l False Humalog [...] abnormalities . Per Carb 2023 Active 2023 80794 69826 9 4 times a day Subcut aneous False Alendronate 35 mg tablet [generic] 35mg By Mouth Every week For Osteoporosis take with a full glass of water on an empty stomach no other food or medication remain upright do not crush 35mg 2023 Active 2023 71058 80623 5 Every week By Mouth False Humalog KwikPen (U-100) Insulin 100 unit/mL subcutaneou s 08/31 Inactiv e 2023 68711 41787 9 MediHoney HCS 4 1/2in X 4 1/2in bandage Cleanse area with NSS, apply one medihoney hydrocolloid dressing, non adherent dressing, kerlix secure with paper tape daily. For wound stage III 1 09/19 Inactiv e 2023 85761 91800 1 Once daily Topica l False Betadine 10 % topical solution wound care cleanse withnormal saline, apply gauze soaked in betadine, leave on 5 minutes pat dry leave open to air 1 2023 Active 2023 86528 63896 1 Once daily Topica l False Betadine 10 % topical solution wound care cleanse withnormal saline, apply gauze soaked in betadine, leave on 5 minutes pat dry leave open to air 1 2023 Active 2023 77535 60870 1 Once daily Topica l False Problems Code Description Start Date End Date Status D64.9 Anemia, unspecified 08/25/2024 Activ e I25.10 Atherosclerotic hear t disease of [place] coronary artery without angina pectoris 08/25/2024 Active [...] weight Temperature SpO2 Blood Sugar Pulse Respirations 94364 8 67.00 mm[Hg] - Sitting 145.00 mm[Hg] - Sitting 98.50 Forehead Scan 96.00 % 81.00/ min 16.00/min 2 67.00 mm[Hg] - Sitting 145.00 mm[Hg] - Sitting 98.50 Tympanic 81.00/ min 16.00/min 71667 004 61208 5 56.00 mm[Hg] - Sitting 142.00 mm[Hg] - Sitting 136.40 NI 100.20 Tympanic 96.00 % 92.00/ min 18.00/min 72314 004 12274 6 59237 004 65122 4 143.00 mg/dL 06965 004 68726 0 97.80 Tympanic 65087 005 71171 7 60.00 mm[Hg] - Sitting 140.00 mm[Hg] - Sitting 98.00 Tympanic 84.00/ min 18.00/min 54672 005 43219 0 63.00 mm[Hg] - Sitting 141.00 mm[Hg] - Sitting 98.20 Tympanic 92.00 % 63.00/ min 16.00/min 49659 005 00739 8 69.00 mm[Hg] - Sitting 106.00 mm[Hg] - Sitting 97.20 Tympanic 71718 005 73847 7 69.00/ min 16.00/min 75424 005 56587 3 69.00 mm[Hg] - Sitting 106.00 mm[Hg] - Sitting 98.20 Tympanic 69.00/ min 16.00/min 76406 005 55701 1 367.00 mg/dL 49644 005 85513 2 97.20 Tympanic 52865 005 59845 4 97.20 Tympanic 46580 005 28423 0 69.00 mm[Hg] - Sitting 106.00 mm[Hg] - Sitting 69.00/ min 49355 005 73981 3 452.00 mg/dL 21071 005 97369 3 452.00 mg/dL 54584 005 58606 5 352.00 mg/dL 12720 005 65303 3 352.00 mg/dL 20530 005 54318 7 98.20 Tympanic 54540 005 12413 3 101.00 mg/dL 17464 005 57618 8 101.00 mg/dL 14428 006 93800 4 66.00 mm[Hg] - Sitting 107.00 mm[Hg] - Sitting 98.00 Tympanic 66.00/ min 18.00/min 30460 006 77220 0 62.00 mm[Hg] - Sitting 162.00 mm[Hg] - Sitting 98.20 Tympanic 96.00 % 60.00/ min 16.00/min 18567 006 60670 4 62.00 mm[Hg] - Sitting 162.00 mm[Hg] - Sitting 98.00 Tympanic 70.00/ min 18.00/min 72884 006 54604 8 62.00 mm[Hg] - Sitting 162.00 mm[Hg] - Sitting 98.20 Tympanic 70.00/ min 18.00/min 63866 006 82940 2 66.00 mm[Hg] - Sitting 132.00 mm[Hg] - Sitting 98.60 Tympanic 74.00/ min 16.00/min 48408 006 54903 5 159.00 mg/dL 57601 006 48052 1 159.00 mg/dL 45397 006 30525 8 98.00 Tympanic 24493 006 94190 2 62.00 mm[Hg] - Sitting 162.00 mm[Hg] - Sitting 70.00/ min 51625 006 11298 7 264.00 mg/dL 67824 006 03504 7 264.00 mg/dL 33213 006 68298 4 196.00 mg/dL 40794 006 76339 3 98.20 Tympanic 97182 006 67033 6 271.00 mg/dL 97137 007 90763 3 97.20 Tympanic 28897 007 40396 2 63.00 mm[Hg] - Sitting 132.00 mm[Hg] - Sitting 98.50 Tympanic 94.00 % 66.00/ min 16.00/min 78027 007 10861 5 188.00 mg/dL 65239 007 68830 2 188.00 mg/dL 95184 007 63945 2 188.00 mg/dL 01800 007 94455 7 97.20 Tympanic 86749 007 19962 6 97.20 Tympanic 00254 007 27224 5 67.00 mm[Hg] - Sitting 152.00 mm[Hg] - Sitting 68.00/ min 74615 007 86117 0 141.00 mg/dL 14425 007 56882 3 141.00 mg/dL 89516 007 62196 1 366.00 mg/dL 65458 007 73935 7 366.00 mg/dL 88306 007 93197 7 98.00 Tympanic 71406 007 20648 6 324.00 mg/dL 15915 007 36494 3 98.00 Tympanic 26287 007 87369 7 324.00 mg/dL 39453 008 94712 0 98.00 Tympanic 64246 008 81447 2 97.90 Tympanic 76216 008 07143 0 98.20 Tympanic 62236 008 11548 0 73.00 mm[Hg] - Sitting 156.00 mm[Hg] - Sitting 98.60 Tympanic 99.00 % 66.00/ min 20.00/min 56134 008 08509 5 137.00 mg/dL 77682 008 69821 7 137.00 mg/dL 60959 008 53758 2 97.90 Tympanic 76858 008 93481 1 137.00 mg/dL 11861 008 33557 8 97.90 Tympanic 62488 008 45223 5 67.00 mm[Hg] - Sitting 124.00 /min 03131 008 76273 6 212.00 mg/dL 83403 008 45748 6 212.00 mg/dL 78946 008 07760 9 317.00 mg/dL 83809 008 18086 4 317.00 mg/dL 56571 008 99647 8 252.00 mg/dL 82415 008 29083 0 98.70 Tympanic 85654 008 42823 7 252.00 mg/dL 60340 008 32134 3 98.70 Tympanic 22761 009 97619 9 98.70 Tympanic 54245 009 22598 3 98.20 Tympanic 71820 009 01698 5 98.40 Tympanic 42284 009 08345 5 57.00 mm[Hg] - Sitting 129.00 mm[Hg] - Sitting 98.30 Tympanic 97.00 % 65.00/ min 18.00/min 09567 009 71699 1 255.00 mg/dL 14329 009 00768 4 255.00 mg/dL 23611 009 81487 5 98.20 Tympanic 79613 009 25253 0 255.00 mg/dL 26088 009 88995 0 98.20 Tympanic 49257 009 82696 4 63.00 mm[Hg] - Lying Down 102.00 mm[Hg] - Lying Down 58.00/ min 17946 009 39519 0 167.00 mg/dL 07270 009 27706 1 167.00 mg/dL 10355 009 42295 2 164.00 mg/dL 56800 009 69224 1 164.00 mg/dL 12875 009 01759 5 208.00 mg/dL 62934 010 77215 3 98.40 Tympanic 01663 010 66097 5 98.40 Tympanic 29155 010 00955 7 66 NI 65927 010 10286 4 60.00 mm[Hg] - Sitting 143.00 mm[Hg] - Sitting 98.90 Tympanic 98.00 % 67.00/ min 18.00/min 83408 010 38981 2 214.00 mg/dL 97496 010 47946 0 214.00 mg/dL 53781 010 90835 7 214.00 mg/dL 25432 010 57191 6 64.00 mm[Hg] - Sitting 110.00 mm[Hg] - Sitting 72.00/ min 43015 010 99101 7 98.40 Tympanic 09125 010 56684 1 212.00 mg/dL 73194 010 99911 2 212.00 mg/dL 01383 010 42845 1 115.00 mg/dL 08924 010 66450 0 115.00 mg/dL 27454 010 85107 4 98.50 Tympanic 81484 010 47275 4 150.00 mg/dL 19285 010 38268 0 150.00 mg/dL 71358 011 66849 9 98.60 Tympanic 25646 011 82042 1 67.00 mm[Hg] - Sitting 144.00 mm[Hg] - Sitting 98.20 Tympanic 98.00 % 61.00/ min 18.00/min 27666 011 56703 7 290.00 mg/dL 38488 011 44578 2 290.00 mg/dL 34285 011 06983 2 290.00 mg/dL 07412 011 31185 7 54.00 mm[Hg] - Sitting 136.00 mm[Hg] - Sitting 101.00 /min 93777 011 42014 7 98.60 Tympanic 75452 011 08342 5 240.00 mg/dL 47309 011 73238 1 240.00 mg/dL 31150 011 22014 1 156.00 mg/dL 90369 011 09236 9 156.00 mg/dL 11481 011 67462 0 97.80 Tympanic 06041 011 70039 8 343.00 mg/dL 71949 012 10785 9 97.90 Tympanic 11221 012 22375 2 466.00 mg/dL 85932 012 32651 1 466.00 mg/dL 01595 012 86380 3 466.00 mg/dL 43107 012 90229 8 97.90 Tympanic 81691 012 68093 8 56.00 mm[Hg] - Sitting 96.00 mm[Hg] - Sitting 61.00/ min 98801 012 66645 7 350.00 mg/dL 79704 012 63076 5 350.00 mg/dL 70920 012 77014 6 111.00 mg/dL 65873 012 30026 0 111.00 mg/dL 70951 012 38779 5 98.40 Tympanic 70156 012 45872 6 114.00 mg/dL 88740 013 42546 4 74.00 mm[Hg] - Sitting 112.00 mm[Hg] - Sitting 98.40 Tympanic 70.00/ min 18.00/min 44119 013 08084 8 244.00 mg/dL 67873 013 45455 7 244.00 mg/dL 59538 013 92547 1 244.00 mg/dL 17831 013 33059 1 98.20 Tympanic 44483 013 66535 7 72.00 mm[Hg] - Sitting 119.00 mm[Hg] - Sitting 76.00/ min 90373 013 14842 7 253.00 mg/dL 08357 013 79761 4 253.00 mg/dL 53885 013 85447 9 156.00 mg/dL 82358 013 47402 5 156.00 mg/dL 44628 013 59939 4 97.90 Tympanic 62362 013 47344 5 189.00 mg/dL 27897 014 46169 9 98.10 Tympanic 02438 014 60417 0 61.00 mm[Hg] - Sitting 139.00 mm[Hg] - Sitting 98.20 Forehead Scan 99.00 % 66.00/ min 18.00/min 07889 014 39413 3 169.00 mg/dL 17374 014 44655 3 98.10 Tympanic 53868 014 88861 3 75.00 mm[Hg] - Sitting 121.00 mm[Hg] - Sitting 71.00/ min 80138 014 75566 9 221.00 mg/dL 36316 014 27637 9 62.00 mg/dL 29745 014 42619 5 62.00 mg/dL 55146 014 96999 8 156.00 mg/dL 42248 014 43129 6 98.10 Tympanic 35809 014 10874 7 156.00 mg/dL 32443 015 10046 4 45539 015 94981 7 62.00 mm[Hg] - Sitting 142.00 mm[Hg] - Sitting 98.20 Tympanic 99.00 % 67.00/ min 18.00/min 79098 015 50538 9 120.00 mg/dL 07127 015 34423 7 98.00 Tympanic 01488 015 89162 2 82.00 mm[Hg] - Sitting 119.00 /min 84444 015 86696 9 110.00 mg/dL 01744 015 53888 6 104.00 mg/dL 49363 015 30565 0 100.00 mg/dL 58064 015 11214 2 98.10 Tympanic 27467 015 69986 6 100.00 mg/dL 55143 016 33531 2 67.00 mm[Hg] - Sitting 147.00 mm[Hg] - Sitting 99.00 Tympanic 99.00 % 78.00/ min 20.00/min 53044 016 45963 5 158.00 mg/dL 81554 016 29409 1 158.00 mg/dL 63006 016 65143 2 158.00 mg/dL 30046 016 91427 0 66.00 mm[Hg] - Sitting 121.00 mm[Hg] - Sitting 74.00/ min 13635 016 21191 1 97.00 mg/dL 93162 016 26000 5 97.00 mg/dL 35508 016 15101 4 78.00 mg/dL 43972 016 24574 6 78.00 mg/dL 74847 016 56642 5 248.00 mg/dL 42574 016 93393 8 248.00 mg/dL 62989 017 72525 3 54.00 mm[Hg] - Sitting 142.00 mm[Hg] - Sitting 98.30 Tympanic 99.00 % 76.00/ min 18.00/min 87092 017 53329 4 267.00 mg/dL 57580 017 12279 6 73.00 mm[Hg] - Sitting 109.00 mm[Hg] - Sitting 70.00/ min 61184 017 94905 1 184.00 mg/dL 30779 017 93678 5 184.00 mg/dL 27333 017 59602 9 248.00 mg/dL 54223 017 75861 8 299.00 mg/dL 87669 017 54708 3 299.00 mg/dL 20495 018 26969 7 50.00 mm[Hg] - Sitting 125.00 mm[Hg] - Sitting 98.30 Tympanic 98.00 % 76.00/ min 16.00/min 05583 018 21123 3 168.00 mg/dL 58604 018 06526 0 75.00 mm[Hg] - Sitting 121.00 mm[Hg] - Sitting 70.00/ min 94050 018 83668 7 264.00 mg/dL 91125 018 10191 6 132.00 mg/dL 85597 018 73141 6 154.00 mg/dL 42496 018 00907 6 154.00 mg/dL 45688 019 61953 4 63.00 mm[Hg] - Sitting 147.00 mm[Hg] - Sitting 98.50 Tympanic 99.00 % 69.00/ min 18.00/min 11922 019 24394 9 159.00 mg/dL 54725 019 05162 8 73.00 mm[Hg] - Sitting 110.00 mm[Hg] - Sitting 72.00/ min 75862 019 63614 4 191.00 mg/dL 45643 019 64237 8 70.00 mg/dL 41894 019 22506 4 70.00 mg/dL 10635 019 28078 6 198.00 mg/dL 02450 019 84505 0 198.00 mg/dL 22886 020 30880 2 59.00 mm[Hg] - Sitting 131.00 mm[Hg] - Sitting 98.90 Tympanic 99.00 % 69.00/ min 18.00/min 79423 020 17187 7 299.00 mg/dL 63684 020 68065 0 62.00 mm[Hg] - Sitting 132.00 mm[Hg] - Sitting 68.00/ min 38722 020 43711 3 299.00 mg/dL 07034 020 82013 3 299.00 mg/dL 97273 020 23841 9 220.00 mg/dL 51779 020 25625 1 220.00 mg/dL 57630 020 77555 1 270.00 mg/dL 46683 020 68497 4 270.00 mg/dL 95092 020 63020 9 143.00 mg/dL 12450 020 20755 4 143.00 mg/dL 78806 021 87613 0 59.00 mm[Hg] - Sitting 121.00 mm[Hg] - Sitting 98.40 Forehead Scan 98.00 % 70.00/ min 16.00/min 83071 021 86361 0 140.00 mg/dL 59981 021 21525 0 67.00 mm[Hg] - Sitting 130.00 mm[Hg] - Sitting 68.00/ min 47660 021 60048 8 140.00 mg/dL 67206 021 50106 6 140.00 mg/dL 65565 021 54549 8 156.00 mg/dL 80904 021 58120 1 156.00 mg/dL 06587 021 42267 5 146.00 mg/dL 76855 021 13181 4 146.00 mg/dL 45607 021 45236 5 183.00 mg/dL 43718 021 36020 2 183.00 mg/dL 10777 022 67806 3 98319 022 68794 1 43.00 mm[Hg] - Sitting 113.00 mm[Hg] - Sitting 97.80 Tympanic 97.00 % 64.00/ min 18.00/min 12522 022 01905 6 270.00 mg/dL 36541 022 76549 5 68.00 mm[Hg] - Sitting 122.00 mm[Hg] - Sitting 67.00/ min 33771 022 63494 9 270.00 mg/dL 02996 022 38088 4 270.00 mg/dL 86716 022 78143 4 207.00 mg/dL 49846 022 69603 8 207.00 mg/dL 04470 022 67358 9 217.00 mg/dL 76855 022 17920 2 217.00 mg/dL 95516 022 69013 0 192.00 mg/dL 86400 022 81849 9 192.00 mg/dL 09642 023 95671 8 48.00 mm[Hg] - Sitting 116.00 mm[Hg] - Sitting 98.50 Tympanic 97.00 % 63.00/ min 18.00/min 88586 023 18791 9 68.00 mm[Hg] - Sitting 131.00 mm[Hg] - Sitting 68.00/ min 25411 023 77969 8 235.00 mg/dL 51229 023 52371 4 235.00 mg/dL 97396 023 74891 0 235.00 mg/dL 06927 023 73622 0 199.00 mg/dL 50648 023 34254 7 199.00 mg/dL 52353 023 74433 4 233.00 mg/dL 63955 023 08006 3 233.00 mg/dL 67404 023 80160 6 229.00 mg/dL 32074 023 78434 4 229.00 mg/dL 91789 024 51081 3 58.00 mm[Hg] - Sitting 102.00 mm[Hg] - Sitting 58.00/ min 54114 024 84650 9 156.00 mg/dL 69662 024 05400 4 156.00 mg/dL 04440 024 76855 3 156.00 mg/dL 69399 024 60389 0 343.00 mg/dL 17390 024 17874 6 343.00 mg/dL 66425 024 38325 2 167.00 mg/dL 79228 024 67632 0 167.00 mg/dL 86546 024 68958 8 155.00 mg/dL 02214 024 95111 7 155.00 mg/dL 46167 025 08935 0 51.00 mm[Hg] - Lying Down 109.00 mm[Hg] - Lying Down 98.60 Tympanic 95.00 % 67.00/ min 20.00/min 76683 025 97529 0 60.00 mm[Hg] - Sitting 118.00 mm[Hg] - Sitting 98.30 Forehead Scan 98.00 % 68.00/ min 16.00/min 16052 025 83321 3 235.00 mg/dL 86788 025 89244 1 63.00 mm[Hg] - Sitting 110.00 mm[Hg] - Sitting 75.00/ min 22792 025 56680 9 295.00 mg/dL 70065 025 30964 4 94.00 mg/dL 50210 025 28659 1 132.00 mg/dL 27603 025 03124 2 132.00 mg/dL 27727 026 01354 8 50.00 mm[Hg] - Sitting 123.00 mm[Hg] - Sitting 98.50 Tympanic 95.00 % 66.00/ min 18.00/min 59088 026 17261 0 275.00 mg/dL 99475 026 58790 7 275.00 mg/dL 38364 026 06163 1 275.00 mg/dL 03789 026 64978 6 67.00 mm[Hg] - Sitting 123.00 mm[Hg] - Sitting 66.00/ min 37732 026 75358 3 187.00 mg/dL 44545 026 33431 5 187.00 mg/dL 60030 026 85572 0 167.00 mg/dL 21765 026 44999 8 167.00 mg/dL 18566 026 96969 6 387.00 mg/dL 81964 027 43546 7 53.00 mm[Hg] - Sitting 132.00 mm[Hg] - Sitting 98.60 Tympanic 97.00 % 64.00/ min 18.00/min 15106 027 90250 9 189.00 mg/dL 16434 027 67366 4 67.00 mm[Hg] - Sitting 118.00 mm[Hg] - Sitting 66.00/ min 02087 027 35127 2 189.00 mg/dL 83940 027 31316 7 189.00 mg/dL 43967 027 71886 1 105.00 mg/dL 06380 027 75518 8 105.00 mg/dL 03687 027 12933 4 223.00 mg/dL 08357 027 69780 9 223.00 mg/dL 57235 027 18257 9 164.00 mg/dL 80933 028 60455 0 68.00 mm[Hg] - Sitting 115.00 mm[Hg] - Sitting 98.60 Forehead Scan 96.00 % 71.00/ min 16.00/min 98208 028 59895 1 200.00 mg/dL 44841 028 67241 9 200.00 mg/dL 24527 028 09327 1 69.00 mm[Hg] - Sitting 122.00 mm[Hg] - Sitting 67.00/ min 60065 028 91859 3 200.00 mg/dL 66132 028 70924 0 117.00 mg/dL 49972 028 05806 0 117.00 mg/dL 80684 028 61615 1 114.00 mg/dL 58411 028 69314 7 114.00 mg/dL 75731 028 51335 0 179.00 mg/dL 52944 028 69045 8 179.00 mg/dL 01544 029 95648 4 44.00 mm[Hg] - Sitting 121.00 mm[Hg] - Sitting 98.30 Tympanic 97.00 % 65.00/ min 18.00/min 48093 029 61014 9 147.00 mg/dL 10160 029 10512 0 147.00 mg/dL 42760 029 33579 4 147.00 mg/dL 26894 029 61729 1 63.00 mm[Hg] - Sitting 118.00 mm[Hg] - Sitting 74.00/ min 97363 029 90518 2 278.00 mg/dL 57145 029 35343 3 278.00 mg/dL 21858 029 26372 1 241.00 mg/dL 72636 029 77813 8 51550 029 28277 1 504.00 mg/dL 19577 030 97216 0 54.00 mm[Hg] - Sitting 122.00 mm[Hg] - Sitting 98.40 Tympanic 98.00 % 70.00/ min 18.00/min 27488 030 24208 4 242.00 mg/dL 86657 030 59755 8 68.00 mm[Hg] - Sitting 121.00 mm[Hg] - Sitting 68.00/ min 09277 030 51726 2 242.00 mg/dL 91335 030 35785 3 170.00 mg/dL 44163 030 09275 0 170.00 mg/dL 44996 030 10820 4 200.00 mg/dL 73737 030 60759 7 200.00 mg/dL 52789 030 94058 3 131.00 mg/dL 18412 030 62941 5 131.00 mg/dL 86796 031 02270 2 150.00 mg/dL 63893 031 11215 6 60.00 mm[Hg] - Sitting 108.00 mm[Hg] - Sitting 60.00/ min 93860 031 29628 8 150.00 mg/dL 38570 031 43770 4 140.00 mg/dL 62612 031 97570 7 140.00 mg/dL 06549 031 95716 9 140.00 mg/dL 27332 031 79420 0 140.00 mg/dL 35280 031 49191 7 153.00 mg/dL 83880 031 17450 8 153.00 mg/dL 28759 101 68931 2 18.00/mi n 07414 101 27542 8 250.00 mg/dL 02319 101 46948 8 250.00 mg/dL Immunizations Vaccine Date Status COVID-19 09/20/2023 Completed Influenza 09/14/2024 Completed Other 10/08/2023 Completed Shingles 05/27/2011 Completed Tetanus 04/13/2022 Completed TDaP 04/13/2022 Completed Shingles 2 10/05/2018 Completed
--- OUTSIDE RECORDS SUMMARY | 2024-10-03 10:51 | External Medical Summary | Continuity Of Care Document ---
Author Name Unknown Address [address] [address] Organization [facility] () Care Team Providers Care Restaurant Worker Name Role Phone DO Machado Amy Primary Care Provider [phone] Allergies Allergy Reaction Start Date End Date [...] 3 0.1 mL 08/29 Inactiv e 2023 35093 12938 0 1 time Intrad ermal False Tubersol 5 tub. unit/0.1 mL intradermal injection solution [Tuberculin PPD] 0.1mL Intradermal 1 time For PPD 2nd Step Give 2nd Step PPD Day 1 and Read results Day 3 (schedule 7 days after 1st READ) 0.1mL 09/08 Inactiv e 2023 82299 77079 0 1 time Intrad ermal False [facility] - Nurse initials indicate verificatio n that [id number] vaccine was administere d by [facility] [...] order For Diabetes 08/25 Inactiv e 2023 57020 69709 9 4 times a day Subcut aneous False Aspirin 325 mg tablet [generic] 325 By Mouth Twice daily For Anticoagulati on 325 09/25 Active 2023 36723 90906 1 Twice daily By Mouth False Ferrous sulfate 325 mg (65 mg iron) tablet [generic] 325 By Mouth Once daily For anemia 325 2023 Active 2023 65589 94340 5 Once daily By Mouth False Linezolid 600 mg tablet [generic] 600 mg By Mouth Every 12 hours For MRSA INFECTION L BKA 600 mg 08/25 Inactiv e 2023 79630 02376 1 Every 12 hours By Mouth False Cefpodoxime 200 mg tablet [generic] 400 mg By Mouth Twice daily For MRSA INFECTION L BKA 400 mg 08/25 Inactiv e 2023 44833 18990 0 Twice daily By Mouth False Coenzyme Q10 100 mg tablet [generic] 100 mg By Mouth Once daily For SUPP 100 mg 2023 Active 2023 16371 55434 0 Once daily By Mouth False Levothyroxi ne 50 mcg tablet [generic] 50mcg By Mouth Once daily For hypothyroidis m 50mcg 2023 Active 2023 44166 10749 0 Once daily By Mouth False One A Day Men Complete 240 mcg-25 mcg-300 mcg tablet 1 tab By Mouth Once daily For supplement 1 tab 2023 Active 2023 62185 99988 1 Once daily By Mouth False Cholecalcif adalberto (vitamin D3) 50 mcg (2,000 unit) tablet [generic] 1 TAB By Mouth Once daily For SUPP 1 TAB 2023 Active 2023 73793 45502 1 Once daily By Mouth False Cetirizine 10 mg tablet [generic] 1 TAB By Mouth At bedtime For Allergies 1 TAB 2023 Active 2023 76375 96491 0 At bedtime By Mouth False Timolol maleate 0.25 % eye drops [generic] 1 drop Both Eyes Twice daily For glaucoma 1 drop 2023 Active 2023 12657 63510 5 Twice daily Both Eyes False Alendronate 35 mg tablet [generic] 35mg By Mouth Every week For SIADH 35mg 08/31 Inactiv e 2023 65627 55115 5 Every week By Mouth False Lantus Solostar U-100 Insulin 100 unit/mL (3 mL) subcutaneou s pen 18 units Subcutaneous Every morning For DIABETES 18 units 08/25 Inactiv e 2023 85020 66564 0 Every morning Subcut aneous False Lantus Solostar U-100 Insulin 100 unit/mL (3 mL) subcutaneou s pen 18 units Subcutaneous Every morning For DIABETES 18 units 2023 Active 2023 40278 05274 0 Every morning Subcut aneous False Linezolid 600 mg tablet [generic] 600 mg By Mouth Every 12 hours For MRSA INFECTION L BKA 600 mg 08/28 Inactiv e 2023 19863 40908 1 Every 12 hours By Mouth False [...] order For Diabetes 08/31 Inactiv e 2023 07321 22970 9 4 times a day Subcut aneous False Cefpodoxime 200 mg tablet [generic] 400 mg By Mouth Twice daily For MRSA INFECTION L BKA 400 mg 08/28 Inactiv e 2023 66238 32811 0 Twice daily By Mouth False Brimonidine 0.1 % eye drops [generic] 1 drop Both Eyes Twice daily For glaucoma 1 drop 2023 Active 2023 77351 71716 0 Twice daily Both Eyes False Metoprolol succinate ER 50 mg tablet,exte nded release 24 hr [generic] 50 mg By Mouth Once daily HOLD FOR SBP <100, or pulse <60 For HTN 50 mg 2023 Active 2023 46855 12634 1 Once daily By Mouth False Amlodipine 2.5 mg tablet [generic] 2.5 mg By Mouth Once daily For HTN 2.5 mg 2023 Active 2023 73056 06702 5 Once daily By Mouth False Docusate sodium 100 mg capsule [generic] 100mg By Mouth Twice daily as needed For constipation HOLD FOR LOOSE STOOLS 100mg 2023 Active 2023 22506 08503 1 Twice daily as needed By Mouth False Atorvastati n 40 mg tablet [generic] 40mg By Mouth Once daily For HDL 40mg 08/26 Inactiv e 2023 26795 47835 5 Once daily By Mouth False Tylenol 325 mg tablet 2 tabs By Mouth Every 4 hours as needed For Pain DO NOT EXCEED 3000 MG APAP/24 Hours 2 tabs 2023 Active 2023 69113 70584 0 Every 4 hours as needed By Mouth False Tylenol 325 mg tablet 2 tabs By Mouth Every 4 hours as needed For Fever >100 DO NOT EXCEED 3000 MG APAP/24 Hours 2 tabs 2023 Active 2023 83177 49285 0 Every 4 hours as needed By Mouth False Dulcolax (bisacodyl) 10 mg rectal suppository One Suppository per rectum PRN if Milk of Magnisia ineffective. Give on day 5 of no BM 1 sup 2023 Active 2023 73831 40802 1 Daily as needed Rectal False Fleet Enema 19 gram-7 gram/118 mL Administer per rectum PRN one time if dulcolax suppository not effective. Give on day 6 of no BM 1 2023 Active 2023 78553 09511 6 Daily as needed Rectal False Dextrose 50 % in water (D50W) intravenous solution [generic] Dextrose 50% evonne 20-50 ml (slow push) Intravenous if Glucagon not effective after 15 minutes. CALL 911 for ED Evaluation. 50% evonne 2023 Active 2023 31620 27163 9 Intrav enous False Glucagon (HCl) Emergency Kit 1 mg solution for injection Administer Glucagon 1 mg Intramuscular if 15 minutes after GLucose Gel is administered Glucose remains less than 70 1 mg 2023 Active 2023 44559 22436 2 Intram uscula r False Glucose Gel 40 % oral gel [Dextrose] PRN If resident is unable to swallow (with or without symptoms) and Glucose results less than 70 give GLucose 40% Gel 1 tube orally - Recheck Glucose 15 minutes after administratio n. 1 tube 2023 Active 2023 75954 37888 8 By Mouth False Milk of Magnesia 400 mg/5 mL oral suspension [Magnesium hydroxide] PRN 30ml By Mouth Daily as needed for constipation one time daily if no BM, on day 4 of no BM (PRN refer to instructions) For Constipation 30 mL 2023 Active 2023 03217 44043 6 Daily as needed By Mouth False Atorvastati n 40 mg tablet [generic] 08/26 Inactiv e 2023 25523 84004 5 Atorvastati n 40 mg tablet [generic] 40mg By Mouth Once daily For HDL 40mg 2023 Active 2023 25358 04791 5 Once daily By Mouth False Insulin aspart (U-100) 100 unit/mL (3 mL) subcutaneou s pen [generic] 15 units Subcutaneous 1 time For dm 15 units 08/26 Inactiv e 2023 25083 10866 5 1 time Subcut aneous False Humalog KwikPen (U-100) Insulin 100 unit/mL subcutaneou s 15 units Subcutaneous 1 time For dm 15 units 08/27 Inactiv e 2023 41348 51748 9 1 time Subcut aneous False Linezolid 600 mg tablet [generic] 600 mg By Mouth Every 12 hours For MRSA INFECTION L BKA 600 mg 09/06 Inactiv e 2023 15172 11132 1 Every 12 hours By Mouth False Cefpodoxime 200 mg tablet [generic] 400 mg By Mouth Twice daily For MRSA INFECTION L BKA 400 mg 08/31 Inactiv e 2023 87787 61247 0 Twice daily By Mouth False Senna 8.6 mg tablet 8.6 mg By Mouth Once daily For Constipation 8.6 mg 09/07 Inactiv e 2023 41304 39232 1 Once daily By Mouth False Humalog [...] . Per Carb 09/19 Inactiv e 2023 07989 10259 9 4 times a day Subcut aneous False Alendronate 35 mg tablet [generic] 08/31 Inactiv e 2023 12569 99073 5 Alendronate 35 mg tablet [generic] 35mg By Mouth Every week For Osteoporosis 35mg 09/21 Inactiv e 2023 12937 19533 5 Every week By Mouth False ProSource 10 gram-100 kcal/30 mL oral liquid 30 ml By Mouth Once daily For wound healing 30 ml 2023 Active 2023 21481 87703 2 Once daily By Mouth False Clotrimazol e 1 % topical cream [generic] 1 applicaiton Topical Twice daily For tinea, apply to groin rash after cleansing and throughouly drying. Can discontinue order 3 days after rash resolves. 1 applica stacy 09/08 Inactiv e 2023 92879 51888 0 Twice daily Topica l False MAGIC MIX 1:1:1:1 : ZINC OXIDE EXTERNAL OINTMENT 40%; HYDROCOTISO NE EXTERNAL CREAM 1%; NYSTATIN EXTERNAL CREAM 860878W/GM; SILVADENE CREAM 1% Every shift Apply topically to MASD area on coccyx/buttoc ks each shift and as needed for incontinence care For MASD on coccyx layer 2023 Active 2023 Every shift Topica l False Senna 8.6 mg tablet 8.6 mg By Mouth Once daily For Constipation 8.6 mg 09/07 Inactiv e 2023 68021 44960 1 Once daily By Mouth False Senna 8.6 mg tablet 8.6 mg By Mouth Once daily As Needed For Constipation 8.6 mg 2023 Active 2023 61170 74579 1 Once daily By Mouth False BD AutoShield Duo Pen Needle 30 gauge x 3/16in 1 pen needle Subcutaneous 4 times a day For DM 1 pen needle 202300 Active 2023 88005 84439 5 4 times a day Subcut aneous False Hydrocortis one 1 % topical ointment [generic] 1 application Topical Twice daily For tinea *mix 1:1 with clotrimazole cream and apply to clean/dry groin rash 1 applica peggy 09/19 Inactiv e 2023 07226 90307 6 Twice daily Topica l False Clotrimazol e 1 % topical cream [generic] 1 applicaiton Topical Twice daily For tinea, apply to groin rash after cleansing and throughouly drying. MIX WITH HYDROCORTISON E Can discontinue order 3 days after rash resolves. 1 applica stacy 2023 Active 2023 81584 62357 0 Twice daily Topica l False Humalog KwikPen (U-100) Insulin 100 unit/mL subcutaneou s 09/19 Inactiv e 2023 57527 44578 9 Humalog KwikPen (U-100) Insulin 100 unit/mL [...] abnormalities . Per Carb 2023 Active 2023 07534 40370 9 4 times a day Subcut aneous False Humalog KwikPen (U-100) Insulin 100 unit/mL subcutaneou s 10 units Subcutaneous 1 time For DM 10 units 09/20 Inactiv e 2023 95159 55875 9 1 time Subcut aneous False Alendronate 35 mg tablet [generic] 09/21 Inactiv e 2023 88379 29776 5 Alendronate 35 mg tablet [generic] 35mg By Mouth Every week For Osteoporosis take with a full glass of water on an empty stomach no other food or medication remain upright do not crush 35mg 2023 Active 2023 95661 02627 5 Every week By Mouth False Aspirin 325 mg tablet [generic] 325 By Mouth Twice daily For Anticoagulati on 325 2023 Active 2023 46151 21797 1 Twice daily By Mouth False Ferrous sulfate 325 mg (65 mg iron) tablet [generic] 325 By Mouth Once daily For anemia 325 2023 Active 2023 35817 63042 5 Once daily By Mouth False Coenzyme Q10 100 mg tablet [generic] 100 mg By Mouth Once daily For SUPP 100 mg 2023 Active 2023 23712 55783 0 Once daily By Mouth False Levothyroxi ne 50 mcg tablet [generic] 50mcg By Mouth Once daily For hypothyroidis m 50mcg 2023 Active 2023 56870 05849 0 Once daily By Mouth False One A Day Men Complete 240 mcg-25 mcg-300 mcg tablet 1 tab By Mouth Once daily For supplement 1 tab 2023 Active 2023 60750 11474 1 Once daily By Mouth False Cholecalcif adalberto (vitamin D3) 50 mcg (2,000 unit) tablet [generic] 1 TAB By Mouth Once daily For SUPP 1 TAB 2023 Active 2023 50117 34155 1 Once daily By Mouth False Cetirizine 10 mg tablet [generic] 1 TAB By Mouth At bedtime For Allergies 1 TAB 2023 Active 2023 53794 32400 0 At bedtime By Mouth False Timolol maleate 0.25 % eye drops [generic] 1 drop Both Eyes Twice daily For glaucoma 1 drop 2023 Active 2023 66336 34755 5 Twice daily Both Eyes False Lantus Solostar U-100 Insulin 100 unit/mL (3 mL) subcutaneou s pen 18 units Subcutaneous Every morning For DIABETES 18 units 2023 Active 2023 05024 39714 0 Every morning Subcut aneous False Brimonidine 0.1 % eye drops [generic] 1 drop Both Eyes Twice daily For glaucoma 1 drop 2023 Active 2023 50041 62046 0 Twice daily Both Eyes False Metoprolol succinate ER 50 mg tablet,exte nded release 24 hr [generic] 50 mg By Mouth Once daily HOLD FOR SBP <100, or pulse <60 For HTN 50 mg 2023 Active 2023 79023 76830 1 Once daily By Mouth False Amlodipine 2.5 mg tablet [generic] 2.5 mg By Mouth Once daily For HTN 2.5 mg 2023 Active 2023 37227 01958 5 Once daily By Mouth False Docusate sodium 100 mg capsule [generic] 100mg By Mouth Twice daily as needed For constipation HOLD FOR LOOSE STOOLS 100mg 2023 Active 2023 38601 14487 1 Twice daily as needed By Mouth False Atorvastati n 40 mg tablet [generic] 40mg By Mouth Once daily For HDL 40mg 2023 Active 2023 82146 17982 5 Once daily By Mouth False ProSource 10 gram-100 kcal/30 mL oral liquid 30 ml By Mouth Once daily For wound healing 30 ml 2023 Active 2023 15191 73348 2 Once daily By Mouth False MAGIC MIX 1:1:1:1 : ZINC OXIDE EXTERNAL OINTMENT 40%; HYDROCOTISO NE EXTERNAL CREAM 1%; NYSTATIN EXTERNAL CREAM 519478C/GM; SILVADENE CREAM 1% Every shift Apply topically to MASD area on coccyx/buttoc ks each shift and as needed for incontinence care For MASD on coccyx layer 2023 Active 2023 Every shift Topica l False Senna 8.6 mg tablet 8.6 mg By Mouth Once daily As Needed For Constipation 8.6 mg 2023 Active 2023 72293 74659 1 Once daily By Mouth False Clotrimazol e 1 % topical cream [generic] 1 applicaiton Topical Twice daily For tinea, apply to groin rash after cleansing and throughouly drying. MIX WITH HYDROCORTISON E Can discontinue order 3 days after rash resolves. 1 applica stacy 2023 Active 2023 47255 44012 0 Twice daily Topica l False Humalog [...] abnormalities . Per Carb 2023 Active 2023 39967 24295 9 4 times a day Subcut aneous False Alendronate 35 mg tablet [generic] 35mg By Mouth Every week For Osteoporosis take with a full glass of water on an empty stomach no other food or medication remain upright do not crush 35mg 2023 Active 2023 87556 97916 5 Every week By Mouth False Humalog KwikPen (U-100) Insulin 100 unit/mL subcutaneou s 08/31 Inactiv e 2023 07297 24795 9 MediHoney HCS 4 1/2in X 4 1/2in bandage Cleanse area with NSS, apply one medihoney hydrocolloid dressing, non adherent dressing, kerlix secure with paper tape daily. For wound stage III 1 09/19 Inactiv e 2023 56278 99734 1 Once daily Topica l False Betadine 10 % topical solution wound care cleanse withnormal saline, apply gauze soaked in betadine, leave on 5 minutes pat dry leave open to air 1 2023 Active 2023 10163 71033 1 Once daily Topica l False Betadine 10 % topical solution wound care cleanse withnormal saline, apply gauze soaked in betadine, leave on 5 minutes pat dry leave open to air 1 2023 Active 2023 69067 57448 1 Once daily Topica l False Problems Code Description Start Date End Date Status D64.9 Anemia, unspecified 08/25/2024 Activ e I25.10 Atherosclerotic hear t disease of [place] coronary artery without angina pectoris 08/25/2024 Active [...] weight Temperature SpO2 Blood Sugar Pulse Respirations 96735 8 67.00 mm[Hg] - Sitting 145.00 mm[Hg] - Sitting 98.50 Forehead Scan 96.00 % 81.00/ min 16.00/min 2 67.00 mm[Hg] - Sitting 145.00 mm[Hg] - Sitting 98.50 Tympanic 81.00/ min 16.00/min 91121 004 51162 5 56.00 mm[Hg] - Sitting 142.00 mm[Hg] - Sitting 136.40 NI 100.20 Tympanic 96.00 % 92.00/ min 18.00/min 02476 004 44462 6 34023 004 46465 4 143.00 mg/dL 93658 004 19691 0 97.80 Tympanic 22993 005 59373 7 60.00 mm[Hg] - Sitting 140.00 mm[Hg] - Sitting 98.00 Tympanic 84.00/ min 18.00/min 31420 005 58652 0 63.00 mm[Hg] - Sitting 141.00 mm[Hg] - Sitting 98.20 Tympanic 92.00 % 63.00/ min 16.00/min 86404 005 11228 8 69.00 mm[Hg] - Sitting 106.00 mm[Hg] - Sitting 97.20 Tympanic 44011 005 17951 7 69.00/ min 16.00/min 74667 005 16156 3 69.00 mm[Hg] - Sitting 106.00 mm[Hg] - Sitting 98.20 Tympanic 69.00/ min 16.00/min 86949 005 51906 1 367.00 mg/dL 10618 005 57343 2 97.20 Tympanic 96963 005 16535 4 97.20 Tympanic 43913 005 74716 0 69.00 mm[Hg] - Sitting 106.00 mm[Hg] - Sitting 69.00/ min 18018 005 84313 3 452.00 mg/dL 66847 005 90344 3 452.00 mg/dL 17321 005 20027 5 352.00 mg/dL 68640 005 07549 3 352.00 mg/dL 11433 005 96312 7 98.20 Tympanic 89901 005 81616 3 101.00 mg/dL 79101 005 26895 8 101.00 mg/dL 31484 006 42743 4 66.00 mm[Hg] - Sitting 107.00 mm[Hg] - Sitting 98.00 Tympanic 66.00/ min 18.00/min 47656 006 27669 0 62.00 mm[Hg] - Sitting 162.00 mm[Hg] - Sitting 98.20 Tympanic 96.00 % 60.00/ min 16.00/min 56770 006 62811 4 62.00 mm[Hg] - Sitting 162.00 mm[Hg] - Sitting 98.00 Tympanic 70.00/ min 18.00/min 75422 006 53717 8 62.00 mm[Hg] - Sitting 162.00 mm[Hg] - Sitting 98.20 Tympanic 70.00/ min 18.00/min 52173 006 93836 2 66.00 mm[Hg] - Sitting 132.00 mm[Hg] - Sitting 98.60 Tympanic 74.00/ min 16.00/min 29921 006 51537 5 159.00 mg/dL 68539 006 36878 1 159.00 mg/dL 63958 006 10732 8 98.00 Tympanic 49560 006 47041 2 62.00 mm[Hg] - Sitting 162.00 mm[Hg] - Sitting 70.00/ min 50007 006 47074 7 264.00 mg/dL 92461 006 40269 7 264.00 mg/dL 36141 006 76787 4 196.00 mg/dL 53207 006 20150 3 98.20 Tympanic 55082 006 55418 6 271.00 mg/dL 88588 007 12000 3 97.20 Tympanic 07122 007 09404 2 63.00 mm[Hg] - Sitting 132.00 mm[Hg] - Sitting 98.50 Tympanic 94.00 % 66.00/ min 16.00/min 05623 007 30263 5 188.00 mg/dL 62966 007 67201 2 188.00 mg/dL 97426 007 05131 2 188.00 mg/dL 48359 007 43164 7 97.20 Tympanic 82689 007 91387 6 97.20 Tympanic 67630 007 01868 5 67.00 mm[Hg] - Sitting 152.00 mm[Hg] - Sitting 68.00/ min 74355 007 28068 0 141.00 mg/dL 40276 007 29479 3 141.00 mg/dL 66824 007 85548 1 366.00 mg/dL 23985 007 29186 7 366.00 mg/dL 30190 007 42895 7 98.00 Tympanic 96530 007 66039 6 324.00 mg/dL 69837 007 94237 3 98.00 Tympanic 03426 007 04978 7 324.00 mg/dL 21135 008 52684 0 98.00 Tympanic 16771 008 07480 2 97.90 Tympanic 37079 008 77567 0 98.20 Tympanic 35991 008 79461 0 73.00 mm[Hg] - Sitting 156.00 mm[Hg] - Sitting 98.60 Tympanic 99.00 % 66.00/ min 20.00/min 35502 008 27350 5 137.00 mg/dL 87063 008 01619 7 137.00 mg/dL 39477 008 49103 2 97.90 Tympanic 43792 008 44594 1 137.00 mg/dL 99514 008 62314 8 97.90 Tympanic 33989 008 71791 5 67.00 mm[Hg] - Sitting 124.00 /min 35064 008 77637 6 212.00 mg/dL 33097 008 85625 6 212.00 mg/dL 94653 008 21216 9 317.00 mg/dL 09642 008 99624 4 317.00 mg/dL 36788 008 72153 8 252.00 mg/dL 22330 008 99041 0 98.70 Tympanic 65323 008 57603 7 252.00 mg/dL 27435 008 42797 3 98.70 Tympanic 79270 009 12040 9 98.70 Tympanic 89140 009 28872 3 98.20 Tympanic 33401 009 89849 5 98.40 Tympanic 75067 009 40512 5 57.00 mm[Hg] - Sitting 129.00 mm[Hg] - Sitting 98.30 Tympanic 97.00 % 65.00/ min 18.00/min 99880 009 98326 1 255.00 mg/dL 26684 009 90026 4 255.00 mg/dL 66080 009 04379 5 98.20 Tympanic 75218 009 26049 0 255.00 mg/dL 89802 009 71125 0 98.20 Tympanic 63592 009 86660 4 63.00 mm[Hg] - Lying Down 102.00 mm[Hg] - Lying Down 58.00/ min 36415 009 05327 0 167.00 mg/dL 20434 009 04648 1 167.00 mg/dL 32144 009 35786 2 164.00 mg/dL 88117 009 22301 1 164.00 mg/dL 58968 009 73913 5 208.00 mg/dL 84416 010 11493 3 98.40 Tympanic 12170 010 71778 5 98.40 Tympanic 44104 010 37918 7 66 [place] [address]681 010 33340 4 60.00 mm[Hg] - Sitting 143.00 mm[Hg] - Sitting 98.90 Tympanic 98.00 % 67.00/ min 18.00/min 04249 010 17726 2 214.00 mg/dL 75165 010 66816 0 214.00 mg/dL 39469 010 64568 7 214.00 mg/dL 91947 010 64929 6 64.00 mm[Hg] - Sitting 110.00 mm[Hg] - Sitting 72.00/ min 15988 010 42919 7 98.40 Tympanic 99651 010 47884 1 212.00 mg/dL 61177 010 69699 2 212.00 mg/dL 57120 010 46886 1 115.00 mg/dL 74472 010 59866 0 115.00 mg/dL 73221 010 99337 4 98.50 Tympanic 30906 010 41473 4 150.00 mg/dL 80680 010 01969 0 150.00 mg/dL 64509 011 28713 9 98.60 Tympanic 14055 011 86539 1 67.00 mm[Hg] - Sitting 144.00 mm[Hg] - Sitting 98.20 Tympanic 98.00 % 61.00/ min 18.00/min 34313 011 25726 7 290.00 mg/dL 15738 011 57738 2 290.00 mg/dL 82191 011 77389 2 290.00 mg/dL 92959 011 72885 7 54.00 mm[Hg] - Sitting 136.00 mm[Hg] - Sitting 101.00 /min 40173 011 46826 7 98.60 Tympanic 57874 011 18461 5 240.00 mg/dL 30638 011 49448 1 240.00 mg/dL 00261 011 68311 1 156.00 mg/dL 62058 011 02746 9 156.00 mg/dL 14709 011 03076 0 97.80 Tympanic 06717 011 09531 8 343.00 mg/dL 07369 012 52866 9 97.90 Tympanic 32924 012 26965 2 466.00 mg/dL 36033 012 83102 1 466.00 mg/dL 94415 012 32495 3 466.00 mg/dL 67681 012 62122 8 97.90 Tympanic 89272 012 48981 8 56.00 mm[Hg] - Sitting 96.00 mm[Hg] - Sitting 61.00/ min 67622 012 51000 7 350.00 mg/dL 07167 012 22209 5 350.00 mg/dL 02209 012 41412 6 111.00 mg/dL 87141 012 87114 0 111.00 mg/dL 50363 012 28101 5 98.40 Tympanic 92651 012 05088 6 114.00 mg/dL 91557 013 40004 4 74.00 mm[Hg] - Sitting 112.00 mm[Hg] - Sitting 98.40 Tympanic 70.00/ min 18.00/min 46518 013 89714 8 244.00 mg/dL 52867 013 80575 7 244.00 mg/dL 93037 013 81881 1 244.00 mg/dL 99388 013 98751 1 98.20 Tympanic 81852 013 48004 7 72.00 mm[Hg] - Sitting 119.00 mm[Hg] - Sitting 76.00/ min 24021 013 89543 7 253.00 mg/dL 42931 013 85539 4 253.00 mg/dL 91754 013 42961 9 156.00 mg/dL 80828 013 08727 5 156.00 mg/dL 03003 013 50878 4 97.90 Tympanic 43838 013 88938 5 189.00 mg/dL 60417 014 94762 9 98.10 Tympanic 57466 014 54019 0 61.00 mm[Hg] - Sitting 139.00 mm[Hg] - Sitting 98.20 Forehead Scan 99.00 % 66.00/ min 18.00/min 78603 014 76104 3 169.00 mg/dL 53978 014 90104 3 98.10 Tympanic 12903 014 99072 3 71.00/ min Immunizations Vaccine Date Status COVID-19 09/20/2023 Completed Influenza 09/14/2024 Completed Other 10/08/2023 Completed Shingles 05/27/2011 Completed Tetanus 04/13/2022 Completed TDaP 04/13/2022 Completed Shingles 2 10/05/2018 Completed
--- OUTSIDE RECORDS SUMMARY | 2024-10-03 10:51 | External Medical Summary | Continuity Of Care Document ---
Author Name Unknown Address [address] [address] Organization [facility] () Care Team Providers Care Heavy Mobile Equipment Operator Name Role Phone DO Machado Amy Primary Care Provider [phone] Allergies Allergy Reaction Start Date End Date [...] 3 0.1 mL 08/29 Inactiv e 2023 77467 22705 0 1 time Intrad ermal False Tubersol 5 tub. unit/0.1 mL intradermal injection solution [Tuberculin PPD] 0.1mL Intradermal 1 time For PPD 2nd Step Give 2nd Step PPD Day 1 and Read results Day 3 (schedule 7 days after 1st READ) 0.1mL 09/08 Inactiv e 2023 06333 29591 0 1 time Intrad ermal False [facility] - Nurse initials indicate verificatio n that [id number] vaccine was administere d by [facility] [...] order For Diabetes 08/25 Inactiv e 2023 70220 49158 9 4 times a day Subcut aneous False Aspirin 325 mg tablet [generic] 325 By Mouth Twice daily For Anticoagulati on 325 09/25 Active 2023 48304 05319 1 Twice daily By Mouth False Ferrous sulfate 325 mg (65 mg iron) tablet [generic] 325 By Mouth Once daily For anemia 325 2023 Active 2023 03945 99379 5 Once daily By Mouth False Linezolid 600 mg tablet [generic] 600 mg By Mouth Every 12 hours For MRSA INFECTION L BKA 600 mg 08/25 Inactiv e 2023 30669 01202 1 Every 12 hours By Mouth False Cefpodoxime 200 mg tablet [generic] 400 mg By Mouth Twice daily For MRSA INFECTION L BKA 400 mg 08/25 Inactiv e 2023 57691 75299 0 Twice daily By Mouth False Coenzyme Q10 100 mg tablet [generic] 100 mg By Mouth Once daily For SUPP 100 mg 2023 Active 2023 17188 87650 0 Once daily By Mouth False Levothyroxi ne 50 mcg tablet [generic] 50mcg By Mouth Once daily For hypothyroidis m 50mcg 2023 Active 2023 39625 80337 0 Once daily By Mouth False One A Day Men Complete 240 mcg-25 mcg-300 mcg tablet 1 tab By Mouth Once daily For supplement 1 tab 2023 Active 2023 90000 96413 1 Once daily By Mouth False Cholecalcif adalberto (vitamin D3) 50 mcg (2,000 unit) tablet [generic] 1 TAB By Mouth Once daily For SUPP 1 TAB 2023 Active 2023 70412 18788 1 Once daily By Mouth False Cetirizine 10 mg tablet [generic] 1 TAB By Mouth At bedtime For Allergies 1 TAB 2023 Active 2023 89204 98927 0 At bedtime By Mouth False Timolol maleate 0.25 % eye drops [generic] 1 drop Both Eyes Twice daily For glaucoma 1 drop 2023 Active 2023 87891 56494 5 Twice daily Both Eyes False Alendronate 35 mg tablet [generic] 35mg By Mouth Every week For SIADH 35mg 08/31 Inactiv e 2023 17666 37712 5 Every week By Mouth False Lantus Solostar U-100 Insulin 100 unit/mL (3 mL) subcutaneou s pen 18 units Subcutaneous Every morning For DIABETES 18 units 08/25 Inactiv e 2023 19131 83462 0 Every morning Subcut aneous False Lantus Solostar U-100 Insulin 100 unit/mL (3 mL) subcutaneou s pen 18 units Subcutaneous Every morning For DIABETES 18 units 2023 Active 2023 38673 53177 0 Every morning Subcut aneous False Linezolid 600 mg tablet [generic] 600 mg By Mouth Every 12 hours For MRSA INFECTION L BKA 600 mg 08/28 Inactiv e 2023 34963 44766 1 Every 12 hours By Mouth False [...] order For Diabetes 08/31 Inactiv e 2023 31113 06370 9 4 times a day Subcut aneous False Cefpodoxime 200 mg tablet [generic] 400 mg By Mouth Twice daily For MRSA INFECTION L BKA 400 mg 08/28 Inactiv e 2023 36554 07425 0 Twice daily By Mouth False Brimonidine 0.1 % eye drops [generic] 1 drop Both Eyes Twice daily For glaucoma 1 drop 2023 Active 2023 62926 31553 0 Twice daily Both Eyes False Metoprolol succinate ER 50 mg tablet,exte nded release 24 hr [generic] 50 mg By Mouth Once daily HOLD FOR SBP <100, or pulse <60 For HTN 50 mg 2023 Active 2023 47943 22148 1 Once daily By Mouth False Amlodipine 2.5 mg tablet [generic] 2.5 mg By Mouth Once daily For HTN 2.5 mg 2023 Active 2023 13498 80558 5 Once daily By Mouth False Docusate sodium 100 mg capsule [generic] 100mg By Mouth Twice daily as needed For constipation HOLD FOR LOOSE STOOLS 100mg 2023 Active 2023 59472 11143 1 Twice daily as needed By Mouth False Atorvastati n 40 mg tablet [generic] 40mg By Mouth Once daily For HDL 40mg 08/26 Inactiv e 2023 87506 07805 5 Once daily By Mouth False Tylenol 325 mg tablet 2 tabs By Mouth Every 4 hours as needed For Pain DO NOT EXCEED 3000 MG APAP/24 Hours 2 tabs 2023 Active 2023 51704 56752 0 Every 4 hours as needed By Mouth False Tylenol 325 mg tablet 2 tabs By Mouth Every 4 hours as needed For Fever >100 DO NOT EXCEED 3000 MG APAP/24 Hours 2 tabs 2023 Active 2023 86755 53716 0 Every 4 hours as needed By Mouth False Dulcolax (bisacodyl) 10 mg rectal suppository One Suppository per rectum PRN if Milk of Magnisia ineffective. Give on day 5 of no BM 1 sup 2023 Active 2023 72605 94814 1 Daily as needed Rectal False Fleet Enema 19 gram-7 gram/118 mL Administer per rectum PRN one time if dulcolax suppository not effective. Give on day 6 of no BM 1 2023 Active 2023 93607 12773 6 Daily as needed Rectal False Dextrose 50 % in water (D50W) intravenous solution [generic] Dextrose 50% evonne 20-50 ml (slow push) Intravenous if Glucagon not effective after 15 minutes. CALL 911 for ED Evaluation. 50% evonne 2023 Active 2023 08384 81379 9 Intrav enous False Glucagon (HCl) Emergency Kit 1 mg solution for injection Administer Glucagon 1 mg Intramuscular if 15 minutes after GLucose Gel is administered Glucose remains less than 70 1 mg 2023 Active 2023 41211 21289 2 Intram uscula r False Glucose Gel 40 % oral gel [Dextrose] PRN If resident is unable to swallow (with or without symptoms) and Glucose results less than 70 give GLucose 40% Gel 1 tube orally - Recheck Glucose 15 minutes after administratio n. 1 tube 2023 Active 2023 94775 82173 8 By Mouth False Milk of Magnesia 400 mg/5 mL oral suspension [Magnesium hydroxide] PRN 30ml By Mouth Daily as needed for constipation one time daily if no BM, on day 4 of no BM (PRN refer to instructions) For Constipation 30 mL 2023 Active 2023 87892 43314 6 Daily as needed By Mouth False Atorvastati n 40 mg tablet [generic] 08/26 Inactiv e 2023 76224 80816 5 Atorvastati n 40 mg tablet [generic] 40mg By Mouth Once daily For HDL 40mg 2023 Active 2023 40524 98493 5 Once daily By Mouth False Insulin aspart (U-100) 100 unit/mL (3 mL) subcutaneou s pen [generic] 15 units Subcutaneous 1 time For dm 15 units 08/26 Inactiv e 2023 30002 43256 5 1 time Subcut aneous False Humalog KwikPen (U-100) Insulin 100 unit/mL subcutaneou s 15 units Subcutaneous 1 time For dm 15 units 08/27 Inactiv e 2023 84897 29430 9 1 time Subcut aneous False Linezolid 600 mg tablet [generic] 600 mg By Mouth Every 12 hours For MRSA INFECTION L BKA 600 mg 09/06 Inactiv e 2023 58527 45950 1 Every 12 hours By Mouth False Cefpodoxime 200 mg tablet [generic] 400 mg By Mouth Twice daily For MRSA INFECTION L BKA 400 mg 08/31 Inactiv e 2023 26420 94329 0 Twice daily By Mouth False Senna 8.6 mg tablet 8.6 mg By Mouth Once daily For Constipation 8.6 mg 09/07 Inactiv e 2023 74613 66081 1 Once daily By Mouth False Humalog [...] . Per Carb 09/19 Inactiv e 2023 95545 86660 9 4 times a day Subcut aneous False Alendronate 35 mg tablet [generic] 08/31 Inactiv e 2023 92534 22438 5 Alendronate 35 mg tablet [generic] 35mg By Mouth Every week For Osteoporosis 35mg 09/21 Inactiv e 2023 53361 66535 5 Every week By Mouth False ProSource 10 gram-100 kcal/30 mL oral liquid 30 ml By Mouth Once daily For wound healing 30 ml 2023 Active 2023 72618 59598 2 Once daily By Mouth False Clotrimazol e 1 % topical cream [generic] 1 applicaiton Topical Twice daily For tinea, apply to groin rash after cleansing and throughouly drying. Can discontinue order 3 days after rash resolves. 1 applica stacy 09/08 Inactiv e 2023 53694 57721 0 Twice daily Topica l False MAGIC MIX 1:1:1:1 : ZINC OXIDE EXTERNAL OINTMENT 40%; HYDROCOTISO NE EXTERNAL CREAM 1%; NYSTATIN EXTERNAL CREAM 687340T/GM; SILVADENE CREAM 1% Every shift Apply topically to MASD area on coccyx/buttoc ks each shift and as needed for incontinence care For MASD on coccyx layer 2023 Active 2023 Every shift Topica l False Senna 8.6 mg tablet 8.6 mg By Mouth Once daily For Constipation 8.6 mg 09/07 Inactiv e 2023 38499 95211 1 Once daily By Mouth False Senna 8.6 mg tablet 8.6 mg By Mouth Once daily As Needed For Constipation 8.6 mg 2023 Active 2023 89891 00658 1 Once daily By Mouth False BD AutoShield Duo Pen Needle 30 gauge x 3/16in 1 pen needle Subcutaneous 4 times a day For DM 1 pen needle 202300 Active 2023 92763 85263 5 4 times a day Subcut aneous False Hydrocortis one 1 % topical ointment [generic] 1 application Topical Twice daily For tinea *mix 1:1 with clotrimazole cream and apply to clean/dry groin rash 1 applica peggy 09/19 Inactiv e 2023 51311 75871 6 Twice daily Topica l False Clotrimazol e 1 % topical cream [generic] 1 applicaiton Topical Twice daily For tinea, apply to groin rash after cleansing and throughouly drying. MIX WITH HYDROCORTISON E Can discontinue order 3 days after rash resolves. 1 applica stacy 2023 Active 2023 83750 77927 0 Twice daily Topica l False Humalog KwikPen (U-100) Insulin 100 unit/mL subcutaneou s 09/19 Inactiv e 2023 62936 68967 9 Humalog KwikPen (U-100) Insulin 100 unit/mL [...] abnormalities . Per Carb 2023 Active 2023 50482 55705 9 4 times a day Subcut aneous False Humalog KwikPen (U-100) Insulin 100 unit/mL subcutaneou s 10 units Subcutaneous 1 time For DM 10 units 09/20 Inactiv e 2023 83679 76423 9 1 time Subcut aneous False Alendronate 35 mg tablet [generic] 09/21 Inactiv e 2023 50490 03146 5 Alendronate 35 mg tablet [generic] 35mg By Mouth Every week For Osteoporosis take with a full glass of water on an empty stomach no other food or medication remain upright do not crush 35mg 2023 Active 2023 01198 95007 5 Every week By Mouth False Aspirin 325 mg tablet [generic] 325 By Mouth Twice daily For Anticoagulati on 325 2023 Active 2023 38865 93115 1 Twice daily By Mouth False Ferrous sulfate 325 mg (65 mg iron) tablet [generic] 325 By Mouth Once daily For anemia 325 2023 Active 2023 98640 58555 5 Once daily By Mouth False Coenzyme Q10 100 mg tablet [generic] 100 mg By Mouth Once daily For SUPP 100 mg 2023 Active 2023 57404 55346 0 Once daily By Mouth False Levothyroxi ne 50 mcg tablet [generic] 50mcg By Mouth Once daily For hypothyroidis m 50mcg 2023 Active 2023 25868 89753 0 Once daily By Mouth False One A Day Men Complete 240 mcg-25 mcg-300 mcg tablet 1 tab By Mouth Once daily For supplement 1 tab 2023 Active 2023 47195 05629 1 Once daily By Mouth False Cholecalcif adalberto (vitamin D3) 50 mcg (2,000 unit) tablet [generic] 1 TAB By Mouth Once daily For SUPP 1 TAB 2023 Active 2023 47236 72949 1 Once daily By Mouth False Cetirizine 10 mg tablet [generic] 1 TAB By Mouth At bedtime For Allergies 1 TAB 2023 Active 2023 74450 03550 0 At bedtime By Mouth False Timolol maleate 0.25 % eye drops [generic] 1 drop Both Eyes Twice daily For glaucoma 1 drop 2023 Active 2023 04059 55957 5 Twice daily Both Eyes False Lantus Solostar U-100 Insulin 100 unit/mL (3 mL) subcutaneou s pen 18 units Subcutaneous Every morning For DIABETES 18 units 2023 Active 2023 92807 71364 0 Every morning Subcut aneous False Brimonidine 0.1 % eye drops [generic] 1 drop Both Eyes Twice daily For glaucoma 1 drop 2023 Active 2023 37897 20652 0 Twice daily Both Eyes False Metoprolol succinate ER 50 mg tablet,exte nded release 24 hr [generic] 50 mg By Mouth Once daily HOLD FOR SBP <100, or pulse <60 For HTN 50 mg 2023 Active 2023 25948 03640 1 Once daily By Mouth False Amlodipine 2.5 mg tablet [generic] 2.5 mg By Mouth Once daily For HTN 2.5 mg 2023 Active 2023 17739 95891 5 Once daily By Mouth False Docusate sodium 100 mg capsule [generic] 100mg By Mouth Twice daily as needed For constipation HOLD FOR LOOSE STOOLS 100mg 2023 Active 2023 76949 71181 1 Twice daily as needed By Mouth False Atorvastati n 40 mg tablet [generic] 40mg By Mouth Once daily For HDL 40mg 2023 Active 2023 86487 62448 5 Once daily By Mouth False ProSource 10 gram-100 kcal/30 mL oral liquid 30 ml By Mouth Once daily For wound healing 30 ml 2023 Active 2023 43998 81527 2 Once daily By Mouth False MAGIC MIX 1:1:1:1 : ZINC OXIDE EXTERNAL OINTMENT 40%; HYDROCOTISO NE EXTERNAL CREAM 1%; NYSTATIN EXTERNAL CREAM 057480P/GM; SILVADENE CREAM 1% Every shift Apply topically to MASD area on coccyx/buttoc ks each shift and as needed for incontinence care For MASD on coccyx layer 2023 Active 2023 Every shift Topica l False Senna 8.6 mg tablet 8.6 mg By Mouth Once daily As Needed For Constipation 8.6 mg 2023 Active 2023 47920 52879 1 Once daily By Mouth False Clotrimazol e 1 % topical cream [generic] 1 applicaiton Topical Twice daily For tinea, apply to groin rash after cleansing and throughouly drying. MIX WITH HYDROCORTISON E Can discontinue order 3 days after rash resolves. 1 applica stacy 2023 Active 2023 42283 78003 0 Twice daily Topica l False Humalog [...] abnormalities . Per Carb 2023 Active 2023 40922 70565 9 4 times a day Subcut aneous False Alendronate 35 mg tablet [generic] 35mg By Mouth Every week For Osteoporosis take with a full glass of water on an empty stomach no other food or medication remain upright do not crush 35mg 2023 Active 2023 59118 94123 5 Every week By Mouth False Humalog KwikPen (U-100) Insulin 100 unit/mL subcutaneou s 08/31 Inactiv e 2023 82508 99230 9 MediHoney HCS 4 1/2in X 4 1/2in bandage Cleanse area with NSS, apply one medihoney hydrocolloid dressing, non adherent dressing, kerlix secure with paper tape daily. For wound stage III 1 09/19 Inactiv e 2023 46405 33045 1 Once daily Topica l False Betadine 10 % topical solution wound care cleanse withnormal saline, apply gauze soaked in betadine, leave on 5 minutes pat dry leave open to air 1 2023 Active 2023 96564 20627 1 Once daily Topica l False Betadine 10 % topical solution wound care cleanse withnormal saline, apply gauze soaked in betadine, leave on 5 minutes pat dry leave open to air 1 2023 Active 2023 87385 72592 1 Once daily Topica l False Problems Code Description Start Date End Date Status D64.9 Anemia, unspecified 08/25/2024 Activ e I25.10 Atherosclerotic hear t disease of [place] coronary artery without angina pectoris 08/25/2024 Active [...] weight Temperature SpO2 Blood Sugar Pulse Respirations 02147 8 67.00 mm[Hg] - Sitting 145.00 mm[Hg] - Sitting 98.50 Forehead Scan 96.00 % 81.00/ min 16.00/min 2 67.00 mm[Hg] - Sitting 145.00 mm[Hg] - Sitting 98.50 Tympanic 81.00/ min 16.00/min 90514 004 09491 5 56.00 mm[Hg] - Sitting 142.00 mm[Hg] - Sitting 136.40 NI 100.20 Tympanic 96.00 % 92.00/ min 18.00/min 68400 004 84679 6 09128 004 96674 4 143.00 mg/dL 33942 004 21098 0 97.80 Tympanic 16879 005 08214 7 60.00 mm[Hg] - Sitting 140.00 mm[Hg] - Sitting 98.00 Tympanic 84.00/ min 18.00/min 21779 005 41366 0 63.00 mm[Hg] - Sitting 141.00 mm[Hg] - Sitting 98.20 Tympanic 92.00 % 63.00/ min 16.00/min 55582 005 51192 8 69.00 mm[Hg] - Sitting 106.00 mm[Hg] - Sitting 97.20 Tympanic 91930 005 05393 7 69.00/ min 16.00/min 70512 005 52475 3 69.00 mm[Hg] - Sitting 106.00 mm[Hg] - Sitting 98.20 Tympanic 69.00/ min 16.00/min 81947 005 89472 1 367.00 mg/dL 92210 005 52775 2 97.20 Tympanic 85146 005 45085 4 97.20 Tympanic 54703 005 77732 0 69.00 mm[Hg] - Sitting 106.00 mm[Hg] - Sitting 69.00/ min 96645 005 10450 3 452.00 mg/dL 20805 005 59233 3 452.00 mg/dL 29394 005 62594 5 352.00 mg/dL 83681 005 34127 3 352.00 mg/dL 48445 005 34528 7 98.20 Tympanic 70477 005 33239 3 101.00 mg/dL 05971 005 49133 8 101.00 mg/dL 60190 006 52675 4 66.00 mm[Hg] - Sitting 107.00 mm[Hg] - Sitting 98.00 Tympanic 66.00/ min 18.00/min 72908 006 05128 0 62.00 mm[Hg] - Sitting 162.00 mm[Hg] - Sitting 98.20 Tympanic 96.00 % 60.00/ min 16.00/min 90537 006 03963 4 62.00 mm[Hg] - Sitting 162.00 mm[Hg] - Sitting 98.00 Tympanic 70.00/ min 18.00/min 27269 006 88581 8 62.00 mm[Hg] - Sitting 162.00 mm[Hg] - Sitting 98.20 Tympanic 70.00/ min 18.00/min 36657 006 50244 2 66.00 mm[Hg] - Sitting 132.00 mm[Hg] - Sitting 98.60 Tympanic 74.00/ min 16.00/min 29706 006 89673 5 159.00 mg/dL 50417 006 37187 1 159.00 mg/dL 31944 006 60802 8 98.00 Tympanic 58962 006 44972 2 62.00 mm[Hg] - Sitting 162.00 mm[Hg] - Sitting 70.00/ min 75694 006 43590 7 264.00 mg/dL 91425 006 21521 7 264.00 mg/dL 81293 006 56476 4 196.00 mg/dL 98480 006 72955 3 98.20 Tympanic 50198 006 75547 6 271.00 mg/dL 72941 007 50354 3 97.20 Tympanic 44430 007 42300 2 63.00 mm[Hg] - Sitting 132.00 mm[Hg] - Sitting 98.50 Tympanic 94.00 % 66.00/ min 16.00/min 45788 007 64837 5 188.00 mg/dL 22321 007 43813 2 188.00 mg/dL 61490 007 55120 2 188.00 mg/dL 56519 007 50275 7 97.20 Tympanic 84769 007 22175 6 97.20 Tympanic 56355 007 01272 5 67.00 mm[Hg] - Sitting 152.00 mm[Hg] - Sitting 68.00/ min 90354 007 62112 0 141.00 mg/dL 56442 007 76973 3 141.00 mg/dL 57537 007 33250 1 366.00 mg/dL 62856 007 83845 7 366.00 mg/dL 33927 007 77913 7 98.00 Tympanic 61112 007 27470 6 324.00 mg/dL 11180 007 27411 3 98.00 Tympanic 13810 007 59986 7 324.00 mg/dL 95238 008 49067 0 98.00 Tympanic 72050 008 07193 2 97.90 Tympanic 25881 008 66570 0 98.20 Tympanic 03752 008 19244 0 73.00 mm[Hg] - Sitting 156.00 mm[Hg] - Sitting 98.60 Tympanic 99.00 % 66.00/ min 20.00/min 27073 008 10681 5 137.00 mg/dL 06499 008 42663 7 137.00 mg/dL 34617 008 65447 2 97.90 Tympanic 32749 008 03983 1 137.00 mg/dL 88838 008 62660 8 97.90 Tympanic 40625 008 56481 5 67.00 mm[Hg] - Sitting 124.00 /min 56561 008 06873 6 212.00 mg/dL 97446 008 99673 6 212.00 mg/dL 39287 008 45407 9 317.00 mg/dL 35394 008 70067 4 317.00 mg/dL 38068 008 07596 8 252.00 mg/dL 80780 008 41694 0 98.70 Tympanic 60048 008 06941 7 252.00 mg/dL 98573 008 28564 3 98.70 Tympanic 91959 009 60996 9 98.70 Tympanic 36179 009 46582 3 98.20 Tympanic 01769 009 20134 5 98.40 Tympanic 60343 009 68708 5 57.00 mm[Hg] - Sitting 129.00 mm[Hg] - Sitting 98.30 Tympanic 97.00 % 65.00/ min 18.00/min 36267 009 13879 1 255.00 mg/dL 45619 009 65254 4 255.00 mg/dL 08744 009 97640 5 98.20 Tympanic 21902 009 48477 0 255.00 mg/dL 56562 009 70701 0 98.20 Tympanic 48178 009 69828 4 63.00 mm[Hg] - Lying Down 102.00 mm[Hg] - Lying Down 58.00/ min 99127 009 60557 0 167.00 mg/dL 44691 009 58136 1 167.00 mg/dL 77398 009 56228 2 164.00 mg/dL 45304 009 29272 1 164.00 mg/dL 29555 009 89013 5 208.00 mg/dL 04215 010 12402 3 98.40 Tympanic 34452 010 56296 5 98.40 Tympanic 79725 010 18822 7 66 NI 04169 010 32673 4 60.00 mm[Hg] - Sitting 143.00 mm[Hg] - Sitting 98.90 Tympanic 98.00 % 67.00/ min 18.00/min 49727 010 11638 2 214.00 mg/dL 26679 010 70217 0 214.00 mg/dL 89524 010 92820 7 214.00 mg/dL 09963 010 70426 6 64.00 mm[Hg] - Sitting 110.00 mm[Hg] - Sitting 72.00/ min 51970 010 89487 7 98.40 Tympanic 16331 010 42528 1 212.00 mg/dL 05236 010 84394 2 212.00 mg/dL 49740 010 42259 1 115.00 mg/dL 44210 010 77187 0 115.00 mg/dL 79003 010 73865 4 98.50 Tympanic 69733 010 97156 4 150.00 mg/dL 60165 010 04632 0 150.00 mg/dL 03524 011 44049 9 98.60 Tympanic 16730 011 54165 1 67.00 mm[Hg] - Sitting 144.00 mm[Hg] - Sitting 98.20 Tympanic 98.00 % 61.00/ min 18.00/min 81731 011 96304 7 290.00 mg/dL 43409 011 60333 2 290.00 mg/dL 23691 011 55334 2 290.00 mg/dL 96682 011 35822 7 54.00 mm[Hg] - Sitting 136.00 mm[Hg] - Sitting 101.00 /min 43153 011 33981 7 98.60 Tympanic 47033 011 54516 5 240.00 mg/dL 44614 011 45284 1 240.00 mg/dL 40251 011 87588 1 156.00 mg/dL 99913 011 43678 9 156.00 mg/dL 47072 011 42915 0 97.80 Tympanic 47338 011 61484 8 343.00 mg/dL 37249 012 37937 9 97.90 Tympanic 98811 012 77261 2 466.00 mg/dL 13437 012 63137 1 466.00 mg/dL 37593 012 33360 3 466.00 mg/dL 52338 012 33509 8 97.90 Tympanic 62484 012 27129 8 56.00 mm[Hg] - Sitting 96.00 mm[Hg] - Sitting 61.00/ min 11905 012 71812 7 350.00 mg/dL 99947 012 49517 5 350.00 mg/dL 71466 012 17424 6 111.00 mg/dL 52926 012 51011 0 111.00 mg/dL 13841 012 67683 5 98.40 Tympanic 83292 012 69502 6 114.00 mg/dL 11750 013 52513 4 74.00 mm[Hg] - Sitting 112.00 mm[Hg] - Sitting 98.40 Tympanic 70.00/ min 18.00/min 80373 013 88697 8 244.00 mg/dL 27698 013 80893 7 244.00 mg/dL 56965 013 50119 1 244.00 mg/dL 56267 013 85503 1 98.20 Tympanic 19249 013 60844 7 72.00 mm[Hg] - Sitting 119.00 mm[Hg] - Sitting 76.00/ min 89556 013 32489 7 253.00 mg/dL 51217 013 05873 4 253.00 mg/dL 25216 013 23730 9 156.00 mg/dL 46679 013 50588 5 156.00 mg/dL 45107 013 43393 4 97.90 Tympanic 70092 013 44565 5 189.00 mg/dL 01679 014 44352 9 98.10 Tympanic 37728 014 23691 0 61.00 mm[Hg] - Sitting 139.00 mm[Hg] - Sitting 98.20 Forehead Scan 99.00 % 66.00/ min 18.00/min 46708 014 46040 3 169.00 mg/dL 67429 014 91897 3 98.10 Tympanic 11884 014 35832 3 75.00 mm[Hg] - Sitting 121.00 mm[Hg] - Sitting 71.00/ min 54466 014 51366 9 221.00 mg/dL 56622 014 94120 9 62.00 mg/dL 81561 014 95462 5 62.00 mg/dL 35872 014 35760 8 156.00 mg/dL 20411 014 82881 6 98.10 Tympanic 13089 014 50787 7 156.00 mg/dL 37139 015 93313 4 15948 015 17745 7 62.00 mm[Hg] - Sitting 142.00 mm[Hg] - Sitting 98.20 Tympanic 99.00 % 67.00/ min 18.00/min 04828 015 22004 9 120.00 mg/dL 78552 015 86818 7 98.00 Tympanic 33685 015 78944 2 82.00 mm[Hg] - Sitting 119.00 /min 45666 015 30138 9 110.00 mg/dL 54596 015 46322 6 104.00 mg/dL 29567 015 29150 0 100.00 mg/dL 63633 015 30081 2 98.10 Tympanic 92742 015 78084 6 100.00 mg/dL 38991 016 25248 2 67.00 mm[Hg] - Sitting 147.00 mm[Hg] - Sitting 99.00 Tympanic 99.00 % 78.00/ min 20.00/min 82079 016 92391 5 158.00 mg/dL 08781 016 52192 1 158.00 mg/dL 83878 016 89521 2 158.00 mg/dL 69486 016 37037 0 66.00 mm[Hg] - Sitting 121.00 mm[Hg] - Sitting 74.00/ min 55062 016 88684 1 97.00 mg/dL 83839 016 10602 5 97.00 mg/dL 29401 016 12148 4 78.00 mg/dL 95037 016 78089 6 78.00 mg/dL 60793 016 86468 5 248.00 mg/dL 54087 016 53609 8 248.00 mg/dL 06726 017 22943 3 54.00 mm[Hg] - Sitting 142.00 mm[Hg] - Sitting 98.30 Tympanic 99.00 % 76.00/ min 18.00/min 73017 017 57843 4 267.00 mg/dL 87074 017 92785 6 73.00 mm[Hg] - Sitting 109.00 mm[Hg] - Sitting 70.00/ min 95630 017 09155 1 184.00 mg/dL 41455 017 63099 5 184.00 mg/dL 88004 017 80263 9 248.00 mg/dL 36031 017 30703 8 299.00 mg/dL 78008 017 85575 3 299.00 mg/dL 82610 018 01943 7 50.00 mm[Hg] - Sitting 125.00 mm[Hg] - Sitting 98.30 Tympanic 98.00 % 76.00/ min 16.00/min 79946 018 08818 3 168.00 mg/dL 67501 018 40938 0 75.00 mm[Hg] - Sitting 121.00 mm[Hg] - Sitting 70.00/ min 96886 018 51112 7 264.00 mg/dL 59975 018 78759 6 132.00 mg/dL 83597 018 77698 6 154.00 mg/dL 71376 018 88196 6 154.00 mg/dL 68572 019 40750 4 63.00 mm[Hg] - Sitting 147.00 mm[Hg] - Sitting 98.50 Tympanic 99.00 % 69.00/ min 18.00/min 63231 019 91177 9 159.00 mg/dL 75489 019 73140 8 73.00 mm[Hg] - Sitting 110.00 mm[Hg] - Sitting 72.00/ min 90558 019 66645 4 191.00 mg/dL 17986 019 17151 8 70.00 mg/dL 12350 019 24215 4 70.00 mg/dL 33463 019 31053 6 198.00 mg/dL 37545 019 08418 0 198.00 mg/dL 41475 020 13568 2 59.00 mm[Hg] - Sitting 131.00 mm[Hg] - Sitting 98.90 Tympanic 99.00 % 69.00/ min 18.00/min 05172 020 53925 7 299.00 mg/dL 65934 020 26069 0 62.00 mm[Hg] - Sitting 132.00 mm[Hg] - Sitting 68.00/ min 79423 020 22685 3 299.00 mg/dL 27819 020 08281 3 299.00 mg/dL 11748 020 87318 9 220.00 mg/dL 70312 020 91358 1 220.00 mg/dL 50801 020 36843 1 270.00 mg/dL 26265 020 30719 4 270.00 mg/dL 77413 020 02400 9 143.00 mg/dL 77373 020 63865 4 143.00 mg/dL 92374 021 28942 0 59.00 mm[Hg] - Sitting 121.00 mm[Hg] - Sitting 98.40 Forehead Scan 98.00 % 70.00/ min 16.00/min 45143 021 12707 0 140.00 mg/dL 43921 021 30566 0 67.00 mm[Hg] - Sitting 130.00 mm[Hg] - Sitting 68.00/ min 89393 021 47703 8 140.00 mg/dL 22609 021 91878 6 140.00 mg/dL 05533 021 66188 8 156.00 mg/dL 48735 021 71843 1 156.00 mg/dL 47933 021 34058 5 146.00 mg/dL 96574 021 06863 4 146.00 mg/dL 18773 021 32296 5 183.00 mg/dL 70735 021 58286 2 183.00 mg/dL 74483 022 56716 3 44207 022 66829 1 43.00 mm[Hg] - Sitting 113.00 mm[Hg] - Sitting 97.80 Tympanic 97.00 % 64.00/ min 18.00/min 57687 022 91040 6 270.00 mg/dL 20767 022 43038 5 68.00 mm[Hg] - Sitting 122.00 mm[Hg] - Sitting 67.00/ min 80884 022 06259 9 270.00 mg/dL 62715 022 58484 4 270.00 mg/dL 01229 022 45332 4 207.00 mg/dL 71232 022 19945 8 207.00 mg/dL 86683 022 24569 9 217.00 mg/dL 70235 022 27464 2 217.00 mg/dL 40267 022 13743 0 192.00 mg/dL 20752 022 98752 9 192.00 mg/dL 21317 023 96773 8 48.00 mm[Hg] - Sitting 116.00 mm[Hg] - Sitting 98.50 Tympanic 97.00 % 63.00/ min 18.00/min 49094 023 48586 9 68.00 mm[Hg] - Sitting 131.00 mm[Hg] - Sitting 68.00/ min 86277 023 78698 8 235.00 mg/dL 45802 023 78590 4 235.00 mg/dL 81798 023 89370 0 235.00 mg/dL 83599 023 29439 0 199.00 mg/dL 94875 023 83717 7 199.00 mg/dL 13759 023 23381 4 233.00 mg/dL 34451 023 06989 3 233.00 mg/dL 22317 023 16810 6 229.00 mg/dL 00228 023 78996 4 229.00 mg/dL 35718 024 37016 3 58.00 mm[Hg] - Sitting 102.00 mm[Hg] - Sitting 58.00/ min 71023 024 18493 9 156.00 mg/dL 63075 024 52567 4 156.00 mg/dL 44481 024 02875 3 156.00 mg/dL 45507 024 25732 0 343.00 mg/dL 81262 024 40961 6 343.00 mg/dL 54216 024 90377 2 167.00 mg/dL 87570 024 33868 0 167.00 mg/dL 21597 024 11331 8 155.00 mg/dL 64738 024 29169 7 155.00 mg/dL 53994 025 71660 0 51.00 mm[Hg] - Lying Down 109.00 mm[Hg] - Lying Down 98.60 Tympanic 95.00 % 67.00/ min 20.00/min 97542 025 06975 0 60.00 mm[Hg] - Sitting 118.00 mm[Hg] - Sitting 98.30 Forehead Scan 98.00 % 68.00/ min 16.00/min 19196 025 42909 3 235.00 mg/dL 79139 025 69639 1 63.00 mm[Hg] - Sitting 110.00 mm[Hg] - Sitting 75.00/ min 37941 025 28842 9 295.00 mg/dL 09880 025 61097 4 94.00 mg/dL 26878 025 39076 1 132.00 mg/dL 75313 025 93326 2 132.00 mg/dL 06259 026 12408 8 50.00 mm[Hg] - Sitting 123.00 mm[Hg] - Sitting 98.50 Tympanic 95.00 % 66.00/ min 18.00/min 66536 026 71725 0 275.00 mg/dL 51646 026 76045 7 275.00 mg/dL 77574 026 79028 1 275.00 mg/dL 42996 026 59511 6 67.00 mm[Hg] - Sitting 123.00 mm[Hg] - Sitting 66.00/ min 05471 026 32080 3 187.00 mg/dL 09415 026 51816 5 187.00 mg/dL 06475 026 89338 0 167.00 mg/dL 34151 026 05207 8 167.00 mg/dL 22944 026 36456 6 387.00 mg/dL 43370 027 12592 7 53.00 mm[Hg] - Sitting 132.00 mm[Hg] - Sitting 98.60 Tympanic 97.00 % 64.00/ min 18.00/min 18897 027 32912 9 189.00 mg/dL 63352 027 50911 4 67.00 mm[Hg] - Sitting 118.00 mm[Hg] - Sitting 66.00/ min 53201 027 39284 2 189.00 mg/dL 51353 027 72247 7 189.00 mg/dL 31557 027 10577 1 105.00 mg/dL 96850 027 78426 8 105.00 mg/dL 19430 027 29563 4 223.00 mg/dL 14302 027 02552 9 223.00 mg/dL 80687 027 52310 9 164.00 mg/dL 46027 028 93001 0 68.00 mm[Hg] - Sitting 115.00 mm[Hg] - Sitting 98.60 Forehead Scan 96.00 % 71.00/ min 16.00/min 96411 028 15616 1 200.00 mg/dL 02221 028 19958 9 200.00 mg/dL 06786 028 73527 1 69.00 mm[Hg] - Sitting 122.00 mm[Hg] - Sitting 67.00/ min 33541 028 02275 3 200.00 mg/dL 13236 028 32801 0 117.00 mg/dL 26730 028 13252 0 117.00 mg/dL 81461 028 43202 1 114.00 mg/dL 54458 028 77732 7 114.00 mg/dL 84287 028 71439 0 179.00 mg/dL 57720 028 77799 8 179.00 mg/dL 92499 029 30937 4 44.00 mm[Hg] - Sitting 121.00 mm[Hg] - Sitting 98.30 Tympanic 97.00 % 65.00/ min 18.00/min 19615 029 02700 9 147.00 mg/dL 02197 029 95384 0 147.00 mg/dL 79255 029 08734 4 147.00 mg/dL 54776 029 64795 1 63.00 mm[Hg] - Sitting 118.00 mm[Hg] - Sitting 74.00/ min 36469 029 63281 2 278.00 mg/dL 27622 029 66812 3 278.00 mg/dL 00743 029 63679 1 241.00 mg/dL 57027 029 55268 8 34669 029 48603 1 504.00 mg/dL 26267 030 59083 0 54.00 mm[Hg] - Sitting 122.00 mm[Hg] - Sitting 98.40 Tympanic 98.00 % 70.00/ min 18.00/min 24208 030 68298 4 242.00 mg/dL 31721 030 85738 8 68.00 mm[Hg] - Sitting 121.00 mm[Hg] - Sitting 68.00/ min 58434 030 21333 2 242.00 mg/dL 85489 030 49979 3 170.00 mg/dL 62859 030 90109 0 170.00 mg/dL 75274 030 29586 4 200.00 mg/dL 12027 030 90556 7 200.00 mg/dL 77714 030 30313 3 131.00 mg/dL 95767 030 62138 5 131.00 mg/dL 10214 031 31686 2 150.00 mg/dL 60720 031 08342 6 60.00 mm[Hg] - Sitting 108.00 mm[Hg] - Sitting 60.00/ min 17229 031 02518 8 150.00 mg/dL 25964 031 53878 4 140.00 mg/dL 21393 031 70015 7 140.00 mg/dL 37779 031 96602 9 140.00 mg/dL 69920 031 06118 0 140.00 mg/dL 86521 031 83486 7 153.00 mg/dL 28754 031 46043 8 153.00 mg/dL 46990 101 85587 2 18.00/mi n 76348 101 08164 8 250.00 mg/dL 04587 101 04910 8 250.00 mg/dL Immunizations Vaccine Date Status COVID-19 09/20/2023 Completed Influenza 09/14/2024 Completed Other 10/08/2023 Completed Shingles 05/27/2011 Completed Tetanus 04/13/2022 Completed TDaP 04/13/2022 Completed Shingles 2 10/05/2018 Completed
--- OUTSIDE RECORDS SUMMARY | 2024-10-03 10:52 | External Medical Summary | Continuity Of Care Document ---
Author Name Unknown Address [address] [address] Organization [facility] () Care Team Providers Care [employer] Name Role Phone DO Machado Amy Primary Care Provider [phone] Allergies Allergy Reaction Start Date End Date [...] 3 0.1 mL 08/29 Inactiv e 2023 66066 39513 0 1 time Intrad ermal False Tubersol 5 tub. unit/0.1 mL intradermal injection solution [Tuberculin PPD] 0.1mL Intradermal 1 time For PPD 2nd Step Give 2nd Step PPD Day 1 and Read results Day 3 (schedule 7 days after 1st READ) 0.1mL 09/08 Inactiv e 2023 10246 45497 0 1 time Intrad ermal False [facility] - Nurse initials indicate verificatio n that [id number] vaccine was administere d by [facility] [...] order For Diabetes 08/25 Inactiv e 2023 54933 47798 9 4 times a day Subcut aneous False Aspirin 325 mg tablet [generic] 325 By Mouth Twice daily For Anticoagulati on 325 09/25 Active 2023 32745 10672 1 Twice daily By Mouth False Ferrous sulfate 325 mg (65 mg iron) tablet [generic] 325 By Mouth Once daily For anemia 325 2023 Active 2023 00495 26362 5 Once daily By Mouth False Linezolid 600 mg tablet [generic] 600 mg By Mouth Every 12 hours For MRSA INFECTION L BKA 600 mg 08/25 Inactiv e 2023 11763 47183 1 Every 12 hours By Mouth False Cefpodoxime 200 mg tablet [generic] 400 mg By Mouth Twice daily For MRSA INFECTION L BKA 400 mg 08/25 Inactiv e 2023 52663 02498 0 Twice daily By Mouth False Coenzyme Q10 100 mg tablet [generic] 100 mg By Mouth Once daily For SUPP 100 mg 2023 Active 2023 15808 67961 0 Once daily By Mouth False Levothyroxi ne 50 mcg tablet [generic] 50mcg By Mouth Once daily For hypothyroidis m 50mcg 2023 Active 2023 69716 53507 0 Once daily By Mouth False One A Day Men Complete 240 mcg-25 mcg-300 mcg tablet 1 tab By Mouth Once daily For supplement 1 tab 2023 Active 2023 03738 50773 1 Once daily By Mouth False Cholecalcif adalberto (vitamin D3) 50 mcg (2,000 unit) tablet [generic] 1 TAB By Mouth Once daily For SUPP 1 TAB 2023 Active 2023 74857 05251 1 Once daily By Mouth False Cetirizine 10 mg tablet [generic] 1 TAB By Mouth At bedtime For Allergies 1 TAB 2023 Active 2023 71600 18209 0 At bedtime By Mouth False Timolol maleate 0.25 % eye drops [generic] 1 drop Both Eyes Twice daily For glaucoma 1 drop 2023 Active 2023 02602 76387 5 Twice daily Both Eyes False Alendronate 35 mg tablet [generic] 35mg By Mouth Every week For SIADH 35mg 08/31 Inactiv e 2023 09198 04564 5 Every week By Mouth False Lantus Solostar U-100 Insulin 100 unit/mL (3 mL) subcutaneou s pen 18 units Subcutaneous Every morning For DIABETES 18 units 08/25 Inactiv e 2023 69719 10591 0 Every morning Subcut aneous False Lantus Solostar U-100 Insulin 100 unit/mL (3 mL) subcutaneou s pen 18 units Subcutaneous Every morning For DIABETES 18 units 2023 Active 2023 26706 62784 0 Every morning Subcut aneous False Linezolid 600 mg tablet [generic] 600 mg By Mouth Every 12 hours For MRSA INFECTION L BKA 600 mg 08/28 Inactiv e 2023 62776 40177 1 Every 12 hours By Mouth False [...] order For Diabetes 08/31 Inactiv e 2023 34738 90951 9 4 times a day Subcut aneous False Cefpodoxime 200 mg tablet [generic] 400 mg By Mouth Twice daily For MRSA INFECTION L BKA 400 mg 08/28 Inactiv e 2023 92152 03924 0 Twice daily By Mouth False Brimonidine 0.1 % eye drops [generic] 1 drop Both Eyes Twice daily For glaucoma 1 drop 2023 Active 2023 83890 03794 0 Twice daily Both Eyes False Metoprolol succinate ER 50 mg tablet,exte nded release 24 hr [generic] 50 mg By Mouth Once daily HOLD FOR SBP <100, or pulse <60 For HTN 50 mg 2023 Active 2023 17972 86483 1 Once daily By Mouth False Amlodipine 2.5 mg tablet [generic] 2.5 mg By Mouth Once daily For HTN 2.5 mg 2023 Active 2023 64214 94907 5 Once daily By Mouth False Docusate sodium 100 mg capsule [generic] 100mg By Mouth Twice daily as needed For constipation HOLD FOR LOOSE STOOLS 100mg 2023 Active 2023 60411 92584 1 Twice daily as needed By Mouth False Atorvastati n 40 mg tablet [generic] 40mg By Mouth Once daily For HDL 40mg 08/26 Inactiv e 2023 06187 47083 5 Once daily By Mouth False Tylenol 325 mg tablet 2 tabs By Mouth Every 4 hours as needed For Pain DO NOT EXCEED 3000 MG APAP/24 Hours 2 tabs 2023 Active 2023 57867 36725 0 Every 4 hours as needed By Mouth False Tylenol 325 mg tablet 2 tabs By Mouth Every 4 hours as needed For Fever >100 DO NOT EXCEED 3000 MG APAP/24 Hours 2 tabs 2023 Active 2023 60366 87747 0 Every 4 hours as needed By Mouth False Dulcolax (bisacodyl) 10 mg rectal suppository One Suppository per rectum PRN if Milk of Magnisia ineffective. Give on day 5 of no BM 1 sup 2023 Active 2023 57712 07989 1 Daily as needed Rectal False Fleet Enema 19 gram-7 gram/118 mL Administer per rectum PRN one time if dulcolax suppository not effective. Give on day 6 of no BM 1 2023 Active 2023 55432 23740 6 Daily as needed Rectal False Dextrose 50 % in water (D50W) intravenous solution [generic] Dextrose 50% evonne 20-50 ml (slow push) Intravenous if Glucagon not effective after 15 minutes. CALL 911 for ED Evaluation. 50% evonne 2023 Active 2023 00492 20879 9 Intrav enous False Glucagon (HCl) Emergency Kit 1 mg solution for injection Administer Glucagon 1 mg Intramuscular if 15 minutes after GLucose Gel is administered Glucose remains less than 70 1 mg 2023 Active 2023 12791 14503 2 Intram uscula r False Glucose Gel 40 % oral gel [Dextrose] PRN If resident is unable to swallow (with or without symptoms) and Glucose results less than 70 give GLucose 40% Gel 1 tube orally - Recheck Glucose 15 minutes after administratio n. 1 tube 2023 Active 2023 35785 94663 8 By Mouth False Milk of Magnesia 400 mg/5 mL oral suspension [Magnesium hydroxide] PRN 30ml By Mouth Daily as needed for constipation one time daily if no BM, on day 4 of no BM (PRN refer to instructions) For Constipation 30 mL 2023 Active 2023 28160 89970 6 Daily as needed By Mouth False Atorvastati n 40 mg tablet [generic] 08/26 Inactiv e 2023 44172 14495 5 Atorvastati n 40 mg tablet [generic] 40mg By Mouth Once daily For HDL 40mg 2023 Active 2023 50225 93632 5 Once daily By Mouth False Insulin aspart (U-100) 100 unit/mL (3 mL) subcutaneou s pen [generic] 15 units Subcutaneous 1 time For dm 15 units 08/26 Inactiv e 2023 24929 28233 5 1 time Subcut aneous False Humalog KwikPen (U-100) Insulin 100 unit/mL subcutaneou s 15 units Subcutaneous 1 time For dm 15 units 08/27 Inactiv e 2023 30794 91849 9 1 time Subcut aneous False Linezolid 600 mg tablet [generic] 600 mg By Mouth Every 12 hours For MRSA INFECTION L BKA 600 mg 09/06 Inactiv e 2023 16757 22095 1 Every 12 hours By Mouth False Cefpodoxime 200 mg tablet [generic] 400 mg By Mouth Twice daily For MRSA INFECTION L BKA 400 mg 08/31 Inactiv e 2023 70565 90155 0 Twice daily By Mouth False Senna 8.6 mg tablet 8.6 mg By Mouth Once daily For Constipation 8.6 mg 09/07 Inactiv e 2023 52805 28675 1 Once daily By Mouth False Humalog [...] . Per Carb 09/19 Inactiv e 2023 29048 93171 9 4 times a day Subcut aneous False Alendronate 35 mg tablet [generic] 08/31 Inactiv e 2023 28270 00839 5 Alendronate 35 mg tablet [generic] 35mg By Mouth Every week For Osteoporosis 35mg 09/21 Inactiv e 2023 30545 32030 5 Every week By Mouth False ProSource 10 gram-100 kcal/30 mL oral liquid 30 ml By Mouth Once daily For wound healing 30 ml 2023 Active 2023 74146 86023 2 Once daily By Mouth False Clotrimazol e 1 % topical cream [generic] 1 applicaiton Topical Twice daily For tinea, apply to groin rash after cleansing and throughouly drying. Can discontinue order 3 days after rash resolves. 1 applica stacy 09/08 Inactiv e 2023 04351 04950 0 Twice daily Topica l False MAGIC MIX 1:1:1:1 : ZINC OXIDE EXTERNAL OINTMENT 40%; HYDROCOTISO NE EXTERNAL CREAM 1%; NYSTATIN EXTERNAL CREAM 466943S/GM; SILVADENE CREAM 1% Every shift Apply topically to MASD area on coccyx/buttoc ks each shift and as needed for incontinence care For MASD on coccyx layer 2023 Active 2023 Every shift Topica l False Senna 8.6 mg tablet 8.6 mg By Mouth Once daily For Constipation 8.6 mg 09/07 Inactiv e 2023 85696 71037 1 Once daily By Mouth False Senna 8.6 mg tablet 8.6 mg By Mouth Once daily As Needed For Constipation 8.6 mg 2023 Active 2023 54790 87053 1 Once daily By Mouth False BD AutoShield Duo Pen Needle 30 gauge x 3/16in 1 pen needle Subcutaneous 4 times a day For DM 1 pen needle 202300 Active 2023 77520 67463 5 4 times a day Subcut aneous False Hydrocortis one 1 % topical ointment [generic] 1 application Topical Twice daily For tinea *mix 1:1 with clotrimazole cream and apply to clean/dry groin rash 1 applica peggy 09/19 Inactiv e 2023 65425 96697 6 Twice daily Topica l False Clotrimazol e 1 % topical cream [generic] 1 applicaiton Topical Twice daily For tinea, apply to groin rash after cleansing and throughouly drying. MIX WITH HYDROCORTISON E Can discontinue order 3 days after rash resolves. 1 applica stacy 2023 Active 2023 12635 12640 0 Twice daily Topica l False Humalog KwikPen (U-100) Insulin 100 unit/mL subcutaneou s 09/19 Inactiv e 2023 13722 73983 9 Humalog KwikPen (U-100) Insulin 100 unit/mL [...] abnormalities . Per Carb 2023 Active 2023 91660 63450 9 4 times a day Subcut aneous False Humalog KwikPen (U-100) Insulin 100 unit/mL subcutaneou s 10 units Subcutaneous 1 time For DM 10 units 09/20 Inactiv e 2023 44344 04420 9 1 time Subcut aneous False Alendronate 35 mg tablet [generic] 09/21 Inactiv e 2023 60569 91216 5 Alendronate 35 mg tablet [generic] 35mg By Mouth Every week For Osteoporosis take with a full glass of water on an empty stomach no other food or medication remain upright do not crush 35mg 2023 Active 2023 60168 29206 5 Every week By Mouth False Humalog KwikPen (U-100) Insulin 100 unit/mL subcutaneou s 08/31 Inactiv e 2023 03979 63445 9 MediHoney HCS 4 1/2in X 4 1/2in bandage Cleanse area with NSS, apply one medihoney hydrocolloid dressing, non adherent dressing, kerlix secure with paper tape daily. 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 08/25/2024 Active [...] weight Temperature SpO2 Blood Sugar Pulse Respirations 03125 8 67.00 mm[Hg] - Sitting 145.00 mm[Hg] - Sitting 98.50 Forehead Scan 96.00 % 81.00/ min 16.00/min 47226 004 47913 2 67.00 mm[Hg] - Sitting 145.00 mm[Hg] - Sitting 98.50 Tympanic 81.00/ min 16.00/min 42863 004 81551 5 56.00 mm[Hg] - Sitting 142.00 mm[Hg] - Sitting 136.40 NI 100.20 Tympanic 96.00 % 92.00/ min 18.00/min 87465 004 81034 6 76759 004 38986 4 143.00 mg/dL 004 29187 0 97.80 Tympanic 62032 005 37643 7 60.00 mm[Hg] - Sitting 140.00 mm[Hg] - Sitting 98.00 Tympanic 84.00/ min 18.00/min 17182 005 84349 0 63.00 mm[Hg] - Sitting 141.00 mm[Hg] - Sitting 98.20 Tympanic 92.00 % 63.00/ min 16.00/min 51740 005 22549 8 69.00 mm[Hg] - Sitting 106.00 mm[Hg] - Sitting 97.20 Tympanic 79342 005 53247 7 69.00/ min 16.00/min 19549 005 19166 3 69.00 mm[Hg] - Sitting 106.00 mm[Hg] - Sitting 98.20 Tympanic 69.00/ min 16.00/min 63463 005 39871 1 367.00 mg/dL 98684 005 91633 2 97.20 Tympanic 25106 005 53756 4 97.20 Tympanic 31587 005 81600 0 69.00 mm[Hg] - Sitting 106.00 mm[Hg] - Sitting 69.00/ min 20008 005 37946 3 452.00 mg/dL 28719 005 27355 3 452.00 mg/dL 10722 005 88763 5 352.00 mg/dL 09238 005 60162 3 352.00 mg/dL 81927 005 39044 7 98.20 Tympanic 50669 005 95995 3 101.00 mg/dL 30025 005 8 101.00 mg/dL 67811 006 29542 4 66.00 mm[Hg] - Sitting 107.00 mm[Hg] - Sitting 98.00 Tympanic 66.00/ min 18.00/min 18333 006 07335 0 62.00 mm[Hg] - Sitting 162.00 mm[Hg] - Sitting 98.20 Tympanic 96.00 % 60.00/ min 16.00/min 58028 006 56354 4 62.00 mm[Hg] - Sitting 162.00 mm[Hg] - Sitting 98.00 Tympanic 70.00/ min 18.00/min 84920 006 03920 8 62.00 mm[Hg] - Sitting 162.00 mm[Hg] - Sitting 98.20 Tympanic 70.00/ min 18.00/min 49227 006 19813 2 66.00 mm[Hg] - Sitting 132.00 mm[Hg] - Sitting 98.60 Tympanic 74.00/ min 16.00/min 08615 006 69342 5 159.00 mg/dL 58427 006 28962 1 159.00 mg/dL 22659 006 27490 8 98.00 Tympanic 09185 006 68360 2 62.00 mm[Hg] - Sitting 162.00 mm[Hg] - Sitting 70.00/ min 60560 006 96775 7 264.00 mg/dL 93549 006 63907 7 264.00 mg/dL 33593 006 85206 4 196.00 mg/dL 14525 006 92557 3 98.20 Tympanic 79411 006 62105 6 271.00 mg/dL 53554 007 93723 3 97.20 Tympanic 87602 007 31816 2 63.00 mm[Hg] - Sitting 132.00 mm[Hg] - Sitting 98.50 Tympanic 94.00 % 66.00/ min 16.00/min 80502 007 00969 5 188.00 mg/dL 67423 007 02016 2 188.00 mg/dL 41222 007 58574 2 188.00 mg/dL 45447 007 27631 7 97.20 Tympanic 59292 007 03167 6 97.20 Tympanic 20345 007 74495 5 67.00 mm[Hg] - Sitting 152.00 mm[Hg] - Sitting 68.00/ min 62843 007 66461 0 141.00 mg/dL 96456 007 42207 3 141.00 mg/dL 09547 007 41176 1 366.00 mg/dL 97429 007 95901 7 366.00 mg/dL 42617 007 79457 7 98.00 Tympanic 31496 007 76184 6 324.00 mg/dL 92333 007 29533 3 98.00 Tympanic 00802 007 91835 7 324.00 mg/dL 78245 008 73240 0 98.00 Tympanic 59550 008 19906 2 97.90 Tympanic 72393 008 09556 0 98.20 Tympanic 84840 008 25016 0 98.60 Tympanic 99.00 % 66.00/ min 20.00/min Immunizations Vaccine Date Status COVID-19 09/20/2023 Completed Influenza 09/14/2024 Completed Other 10/08/2023 Completed Shingles 05/27/2011 Completed Tetanus 04/13/2022 Completed TDaP 04/13/2022 Completed Shingles 2 10/05/2018 Completed
--- OUTSIDE RECORDS SUMMARY | 2024-10-03 10:52 | External Medical Summary | Continuity Of Care Document ---
Author Name Unknown Address [address] [address] Organization [facility] () Care Team Providers Care Efficiency Analyst Name Role Phone DO Machado Amy Primary Care Provider [phone] Allergies Allergy Reaction Start Date End Date [...] 3 0.1 mL 08/29 Inactiv e 2023 19800 86332 0 1 time Intrad ermal False Tubersol 5 tub. unit/0.1 mL intradermal injection solution [Tuberculin PPD] 0.1mL Intradermal 1 time For PPD 2nd Step Give 2nd Step PPD Day 1 and Read results Day 3 (schedule 7 days after 1st READ) 0.1mL 09/08 Inactiv e 2023 17664 65699 0 1 time Intrad ermal False [facility] - Nurse initials indicate verificatio n that [id number] vaccine was administere d by [facility] [...] order For Diabetes 08/25 Inactiv e 2023 92641 53050 9 4 times a day Subcut aneous False Aspirin 325 mg tablet [generic] 325 By Mouth Twice daily For Anticoagulati on 325 09/25 Active 2023 16721 66246 1 Twice daily By Mouth False Ferrous sulfate 325 mg (65 mg iron) tablet [generic] 325 By Mouth Once daily For anemia 325 2023 Active 2023 43868 65366 5 Once daily By Mouth False Linezolid 600 mg tablet [generic] 600 mg By Mouth Every 12 hours For MRSA INFECTION L BKA 600 mg 08/25 Inactiv e 2023 86524 80739 1 Every 12 hours By Mouth False Cefpodoxime 200 mg tablet [generic] 400 mg By Mouth Twice daily For MRSA INFECTION L BKA 400 mg 08/25 Inactiv e 2023 59025 92300 0 Twice daily By Mouth False Coenzyme Q10 100 mg tablet [generic] 100 mg By Mouth Once daily For SUPP 100 mg 2023 Active 2023 03931 46678 0 Once daily By Mouth False Levothyroxi ne 50 mcg tablet [generic] 50mcg By Mouth Once daily For hypothyroidis m 50mcg 2023 Active 2023 27303 92938 0 Once daily By Mouth False One A Day Men Complete 240 mcg-25 mcg-300 mcg tablet 1 tab By Mouth Once daily For supplement 1 tab 2023 Active 2023 80870 81177 1 Once daily By Mouth False Cholecalcif adalberto (vitamin D3) 50 mcg (2,000 unit) tablet [generic] 1 TAB By Mouth Once daily For SUPP 1 TAB 2023 Active 2023 32430 41151 1 Once daily By Mouth False Cetirizine 10 mg tablet [generic] 1 TAB By Mouth At bedtime For Allergies 1 TAB 2023 Active 2023 46936 34260 0 At bedtime By Mouth False Timolol maleate 0.25 % eye drops [generic] 1 drop Both Eyes Twice daily For glaucoma 1 drop 2023 Active 2023 67119 25602 5 Twice daily Both Eyes False Alendronate 35 mg tablet [generic] 35mg By Mouth Every week For SIADH 35mg 08/31 Inactiv e 2023 88500 40358 5 Every week By Mouth False Lantus Solostar U-100 Insulin 100 unit/mL (3 mL) subcutaneou s pen 18 units Subcutaneous Every morning For DIABETES 18 units 08/25 Inactiv e 2023 15921 80602 0 Every morning Subcut aneous False Lantus Solostar U-100 Insulin 100 unit/mL (3 mL) subcutaneou s pen 18 units Subcutaneous Every morning For DIABETES 18 units 2023 Active 2023 60931 69451 0 Every morning Subcut aneous False Linezolid 600 mg tablet [generic] 600 mg By Mouth Every 12 hours For MRSA INFECTION L BKA 600 mg 08/28 Inactiv e 2023 50196 06147 1 Every 12 hours By Mouth False [...] order For Diabetes 08/31 Inactiv e 2023 74503 80691 9 4 times a day Subcut aneous False Cefpodoxime 200 mg tablet [generic] 400 mg By Mouth Twice daily For MRSA INFECTION L BKA 400 mg 08/28 Inactiv e 2023 91531 38616 0 Twice daily By Mouth False Brimonidine 0.1 % eye drops [generic] 1 drop Both Eyes Twice daily For glaucoma 1 drop 2023 Active 2023 69099 80530 0 Twice daily Both Eyes False Metoprolol succinate ER 50 mg tablet,exte nded release 24 hr [generic] 50 mg By Mouth Once daily HOLD FOR SBP <100, or pulse <60 For HTN 50 mg 2023 Active 2023 39760 87600 1 Once daily By Mouth False Amlodipine 2.5 mg tablet [generic] 2.5 mg By Mouth Once daily For HTN 2.5 mg 2023 Active 2023 97302 93252 5 Once daily By Mouth False Docusate sodium 100 mg capsule [generic] 100mg By Mouth Twice daily as needed For constipation HOLD FOR LOOSE STOOLS 100mg 2023 Active 2023 32980 33037 1 Twice daily as needed By Mouth False Atorvastati n 40 mg tablet [generic] 40mg By Mouth Once daily For HDL 40mg 08/26 Inactiv e 2023 49051 77686 5 Once daily By Mouth False Tylenol 325 mg tablet 2 tabs By Mouth Every 4 hours as needed For Pain DO NOT EXCEED 3000 MG APAP/24 Hours 2 tabs 2023 Active 2023 55348 25959 0 Every 4 hours as needed By Mouth False Tylenol 325 mg tablet 2 tabs By Mouth Every 4 hours as needed For Fever >100 DO NOT EXCEED 3000 MG APAP/24 Hours 2 tabs 2023 Active 2023 39097 82191 0 Every 4 hours as needed By Mouth False Dulcolax (bisacodyl) 10 mg rectal suppository One Suppository per rectum PRN if Milk of Magnisia ineffective. Give on day 5 of no BM 1 sup 2023 Active 2023 65856 84558 1 Daily as needed Rectal False Fleet Enema 19 gram-7 gram/118 mL Administer per rectum PRN one time if dulcolax suppository not effective. Give on day 6 of no BM 1 2023 Active 2023 77961 85722 6 Daily as needed Rectal False Dextrose 50 % in water (D50W) intravenous solution [generic] Dextrose 50% evonne 20-50 ml (slow push) Intravenous if Glucagon not effective after 15 minutes. CALL 911 for ED Evaluation. 50% evonne 2023 Active 2023 28728 36071 9 Intrav enous False Glucagon (HCl) Emergency Kit 1 mg solution for injection Administer Glucagon 1 mg Intramuscular if 15 minutes after GLucose Gel is administered Glucose remains less than 70 1 mg 2023 Active 2023 93414 94584 2 Intram uscula r False Glucose Gel 40 % oral gel [Dextrose] PRN If resident is unable to swallow (with or without symptoms) and Glucose results less than 70 give GLucose 40% Gel 1 tube orally - Recheck Glucose 15 minutes after administratio n. 1 tube 2023 Active 2023 01479 47351 8 By Mouth False Milk of Magnesia 400 mg/5 mL oral suspension [Magnesium hydroxide] PRN 30ml By Mouth Daily as needed for constipation one time daily if no BM, on day 4 of no BM (PRN refer to instructions) For Constipation 30 mL 2023 Active 2023 97955 36648 6 Daily as needed By Mouth False Atorvastati n 40 mg tablet [generic] 08/26 Inactiv e 2023 42109 21961 5 Atorvastati n 40 mg tablet [generic] 40mg By Mouth Once daily For HDL 40mg 2023 Active 2023 52019 59876 5 Once daily By Mouth False Insulin aspart (U-100) 100 unit/mL (3 mL) subcutaneou s pen [generic] 15 units Subcutaneous 1 time For dm 15 units 08/26 Inactiv e 2023 38260 73071 5 1 time Subcut aneous False Humalog KwikPen (U-100) Insulin 100 unit/mL subcutaneou s 15 units Subcutaneous 1 time For dm 15 units 08/27 Inactiv e 2023 65875 27277 9 1 time Subcut aneous False Linezolid 600 mg tablet [generic] 600 mg By Mouth Every 12 hours For MRSA INFECTION L BKA 600 mg 09/06 Inactiv e 2023 80454 35259 1 Every 12 hours By Mouth False Cefpodoxime 200 mg tablet [generic] 400 mg By Mouth Twice daily For MRSA INFECTION L BKA 400 mg 08/31 Inactiv e 2023 85672 19291 0 Twice daily By Mouth False Senna 8.6 mg tablet 8.6 mg By Mouth Once daily For Constipation 8.6 mg 09/07 Inactiv e 2023 65538 05841 1 Once daily By Mouth False Humalog [...] . Per Carb 09/19 Inactiv e 2023 98670 80627 9 4 times a day Subcut aneous False Alendronate 35 mg tablet [generic] 08/31 Inactiv e 2023 16447 88228 5 Alendronate 35 mg tablet [generic] 35mg By Mouth Every week For Osteoporosis 35mg 09/21 Inactiv e 2023 19257 16231 5 Every week By Mouth False ProSource 10 gram-100 kcal/30 mL oral liquid 30 ml By Mouth Once daily For wound healing 30 ml 2023 Active 2023 40151 33449 2 Once daily By Mouth False Clotrimazol e 1 % topical cream [generic] 1 applicaiton Topical Twice daily For tinea, apply to groin rash after cleansing and throughouly drying. Can discontinue order 3 days after rash resolves. 1 applica stacy 09/08 Inactiv e 2023 03685 56424 0 Twice daily Topica l False MAGIC MIX 1:1:1:1 : ZINC OXIDE EXTERNAL OINTMENT 40%; HYDROCOTISO NE EXTERNAL CREAM 1%; NYSTATIN EXTERNAL CREAM [id number]/GM; SILVADENE CREAM 1% Every shift Apply topically to MASD area on coccyx/buttoc ks each shift and as needed for incontinence care For MASD on coccyx layer 2023 Active 2023 Every shift Topica l False Senna 8.6 mg tablet 8.6 mg By Mouth Once daily For Constipation 8.6 mg 09/07 Inactiv e 2023 63410 31276 1 Once daily By Mouth False Senna 8.6 mg tablet 8.6 mg By Mouth Once daily As Needed For Constipation 8.6 mg 2023 Active 2023 88138 10667 1 Once daily By Mouth False BD AutoShield Duo Pen Needle 30 gauge x 3/16in 1 pen needle Subcutaneous 4 times a day For DM 1 pen needle 202300 Active 2023 06585 31244 5 4 times a day Subcut aneous False Hydrocortis one 1 % topical ointment [generic] 1 application Topical Twice daily For tinea *mix 1:1 with clotrimazole cream and apply to clean/dry groin rash 1 applica peggy 09/19 Inactiv e 2023 03204 50572 6 Twice daily Topica l False Clotrimazol e 1 % topical cream [generic] 1 applicaiton Topical Twice daily For tinea, apply to groin rash after cleansing and throughouly drying. MIX WITH HYDROCORTISON E Can discontinue order 3 days after rash resolves. 1 applica stacy 2023 Active 2023 97397 60080 0 Twice daily Topica l False Humalog KwikPen (U-100) Insulin 100 unit/mL subcutaneou s 09/19 Inactiv e 2023 51098 24045 9 Humalog KwikPen (U-100) Insulin 100 unit/mL [...] abnormalities . Per Carb 2023 Active 2023 56298 50830 9 4 times a day Subcut aneous False Humalog KwikPen (U-100) Insulin 100 unit/mL subcutaneou s 10 units Subcutaneous 1 time For DM 10 units 09/20 Inactiv e 2023 98436 30736 9 1 time Subcut aneous False Alendronate 35 mg tablet [generic] 09/21 Inactiv e 2023 50329 03163 5 Alendronate 35 mg tablet [generic] 35mg By Mouth Every week For Osteoporosis take with a full glass of water on an empty stomach no other food or medication remain upright do not crush 35mg 2023 Active 2023 83753 89911 5 Every week By Mouth False Aspirin 325 mg tablet [generic] 325 By Mouth Twice daily For Anticoagulati on 325 2023 Active 2023 65563 43605 1 Twice daily By Mouth False Ferrous sulfate 325 mg (65 mg iron) tablet [generic] 325 By Mouth Once daily For anemia 325 2023 Active 2023 53896 28909 5 Once daily By Mouth False Coenzyme Q10 100 mg tablet [generic] 100 mg By Mouth Once daily For SUPP 100 mg 2023 Active 2023 53279 76271 0 Once daily By Mouth False Levothyroxi ne 50 mcg tablet [generic] 50mcg By Mouth Once daily For hypothyroidis m 50mcg 2023 Active 2023 28886 58065 0 Once daily By Mouth False One A Day Men Complete 240 mcg-25 mcg-300 mcg tablet 1 tab By Mouth Once daily For supplement 1 tab 2023 Active 2023 57009 00510 1 Once daily By Mouth False Cholecalcif adalberto (vitamin D3) 50 mcg (2,000 unit) tablet [generic] 1 TAB By Mouth Once daily For SUPP 1 TAB 2023 Active 2023 30328 64062 1 Once daily By Mouth False Cetirizine 10 mg tablet [generic] 1 TAB By Mouth At bedtime For Allergies 1 TAB 2023 Active 2023 90172 58872 0 At bedtime By Mouth False Timolol maleate 0.25 % eye drops [generic] 1 drop Both Eyes Twice daily For glaucoma 1 drop 2023 Active 2023 19980 13188 5 Twice daily Both Eyes False Lantus Solostar U-100 Insulin 100 unit/mL (3 mL) subcutaneou s pen 18 units Subcutaneous Every morning For DIABETES 18 units 2023 Active 2023 66965 38081 0 Every morning Subcut aneous False Brimonidine 0.1 % eye drops [generic] 1 drop Both Eyes Twice daily For glaucoma 1 drop 2023 Active 2023 87297 09217 0 Twice daily Both Eyes False Metoprolol succinate ER 50 mg tablet,exte nded release 24 hr [generic] 50 mg By Mouth Once daily HOLD FOR SBP <100, or pulse <60 For HTN 50 mg 2023 Active 2023 04611 99699 1 Once daily By Mouth False Amlodipine 2.5 mg tablet [generic] 2.5 mg By Mouth Once daily For HTN 2.5 mg 2023 Active 2023 63185 95312 5 Once daily By Mouth False Docusate sodium 100 mg capsule [generic] 100mg By Mouth Twice daily as needed For constipation HOLD FOR LOOSE STOOLS 100mg 2023 Active 2023 25431 97503 1 Twice daily as needed By Mouth False Atorvastati n 40 mg tablet [generic] 40mg By Mouth Once daily For HDL 40mg 2023 Active 2023 64596 46810 5 Once daily By Mouth False ProSource 10 gram-100 kcal/30 mL oral liquid 30 ml By Mouth Once daily For wound healing 30 ml 2023 Active 2023 45533 81909 2 Once daily By Mouth False MAGIC MIX 1:1:1:1 : ZINC OXIDE EXTERNAL OINTMENT 40%; HYDROCOTISO NE EXTERNAL CREAM 1%; NYSTATIN EXTERNAL CREAM [id number]/GM; SILVADENE CREAM 1% Every shift Apply topically to MASD area on coccyx/buttoc ks each shift and as needed for incontinence care For MASD on coccyx layer 2023 Active 2023 Every shift Topica l False Senna 8.6 mg tablet 8.6 mg By Mouth Once daily As Needed For Constipation 8.6 mg 2023 Active 2023 64656 45587 1 Once daily By Mouth False Clotrimazol e 1 % topical cream [generic] 1 applicaiton Topical Twice daily For tinea, apply to groin rash after cleansing and throughouly drying. MIX WITH HYDROCORTISON E Can discontinue order 3 days after rash resolves. 1 applica stacy 2023 Active 2023 97059 65757 0 Twice daily Topica l False Humalog [...] abnormalities . Per Carb 2023 Active 2023 51732 92206 9 4 times a day Subcut aneous False Alendronate 35 mg tablet [generic] 35mg By Mouth Every week For Osteoporosis take with a full glass of water on an empty stomach no other food or medication remain upright do not crush 35mg 2023 Active 2023 52623 14122 5 Every week By Mouth False Humalog KwikPen (U-100) Insulin 100 unit/mL subcutaneou s 08/31 Inactiv e 2023 21436 60004 9 MediHoney HCS 4 1/2in X 4 1/2in bandage Cleanse area with NSS, apply one medihoney hydrocolloid dressing, non adherent dressing, kerlix secure with paper tape daily. For wound stage III 1 09/19 Inactiv e 2023 22024 46534 1 Once daily Topica l False Betadine 10 % topical solution wound care cleanse withnormal saline, apply gauze soaked in betadine, leave on 5 minutes pat dry leave open to air 1 2023 Active 2023 37887 90045 1 Once daily Topica l False Betadine 10 % topical solution wound care cleanse withnormal saline, apply gauze soaked in betadine, leave on 5 minutes pat dry leave open to air 1 2023 Active 2023 52312 77379 1 Once daily Topica l False Problems Code Description Start Date End Date Status D64.9 Anemia, unspecified 08/25/2024 Activ e I25.10 Atherosclerotic hear t disease of [place] coronary artery without angina pectoris 08/25/2024 Active [...] weight Temperature SpO2 Blood Sugar Pulse Respirations 08674 8 67.00 mm[Hg] - Sitting 145.00 mm[Hg] - Sitting 98.50 Forehead Scan 96.00 % 81.00/ min 16.00/min 2 67.00 mm[Hg] - Sitting 145.00 mm[Hg] - Sitting 98.50 Tympanic 81.00/ min 16.00/min 66440 004 88227 5 56.00 mm[Hg] - Sitting 142.00 mm[Hg] - Sitting 136.40 NI 100.20 Tympanic 96.00 % 92.00/ min 18.00/min 06514 004 74659 6 71230 004 74171 4 143.00 mg/dL 14985 004 00392 0 97.80 Tympanic 30052 005 40849 7 60.00 mm[Hg] - Sitting 140.00 mm[Hg] - Sitting 98.00 Tympanic 84.00/ min 18.00/min 00820 005 10728 0 63.00 mm[Hg] - Sitting 141.00 mm[Hg] - Sitting 98.20 Tympanic 92.00 % 63.00/ min 16.00/min 43621 005 87137 8 69.00 mm[Hg] - Sitting 106.00 mm[Hg] - Sitting 97.20 Tympanic 03508 005 40782 7 69.00/ min 16.00/min 91619 005 99097 3 69.00 mm[Hg] - Sitting 106.00 mm[Hg] - Sitting 98.20 Tympanic 69.00/ min 16.00/min 68335 005 47658 1 367.00 mg/dL 53377 005 32872 2 97.20 Tympanic 83632 005 55489 4 97.20 Tympanic 72685 005 29145 0 69.00 mm[Hg] - Sitting 106.00 mm[Hg] - Sitting 69.00/ min 04822 005 29526 3 452.00 mg/dL 70688 005 29634 3 452.00 mg/dL 41530 005 37534 5 352.00 mg/dL 39710 005 90343 3 352.00 mg/dL 29278 005 28245 7 98.20 Tympanic 78674 005 45940 3 101.00 mg/dL 59667 005 66223 8 101.00 mg/dL 27109 006 95639 4 66.00 mm[Hg] - Sitting 107.00 mm[Hg] - Sitting 98.00 Tympanic 66.00/ min 18.00/min 85419 006 70186 0 62.00 mm[Hg] - Sitting 162.00 mm[Hg] - Sitting 98.20 Tympanic 96.00 % 60.00/ min 16.00/min 34384 006 52149 4 62.00 mm[Hg] - Sitting 162.00 mm[Hg] - Sitting 98.00 Tympanic 70.00/ min 18.00/min 65250 006 87458 8 62.00 mm[Hg] - Sitting 162.00 mm[Hg] - Sitting 98.20 Tympanic 70.00/ min 18.00/min 50261 006 05664 2 66.00 mm[Hg] - Sitting 132.00 mm[Hg] - Sitting 98.60 Tympanic 74.00/ min 16.00/min 99869 006 57885 5 159.00 mg/dL 84001 006 93830 1 159.00 mg/dL 75003 006 85714 8 98.00 Tympanic 47255 006 53389 2 62.00 mm[Hg] - Sitting 162.00 mm[Hg] - Sitting 70.00/ min 13766 006 88398 7 264.00 mg/dL 62672 006 04604 7 264.00 mg/dL 90469 006 23277 4 196.00 mg/dL 45566 006 84387 3 98.20 Tympanic 94121 006 65862 6 271.00 mg/dL 50374 007 73278 3 97.20 Tympanic 30767 007 06632 2 63.00 mm[Hg] - Sitting 132.00 mm[Hg] - Sitting 98.50 Tympanic 94.00 % 66.00/ min 16.00/min 81171 007 84365 5 188.00 mg/dL 24238 007 87564 2 188.00 mg/dL 14965 007 19166 2 188.00 mg/dL 51147 007 38388 7 97.20 Tympanic 45732 007 55724 6 97.20 Tympanic 67587 007 93766 5 67.00 mm[Hg] - Sitting 152.00 mm[Hg] - Sitting 68.00/ min 23872 007 11333 0 141.00 mg/dL 33933 007 92158 3 141.00 mg/dL 74505 007 71090 1 366.00 mg/dL 10470 007 55960 7 366.00 mg/dL 06068 007 89904 7 98.00 Tympanic 06898 007 61245 6 324.00 mg/dL 26976 007 57999 3 98.00 Tympanic 10415 007 87726 7 324.00 mg/dL 90624 008 80579 0 98.00 Tympanic 36535 008 20070 2 97.90 Tympanic 49710 008 71599 0 98.20 Tympanic 01250 008 84106 0 73.00 mm[Hg] - Sitting 156.00 mm[Hg] - Sitting 98.60 Tympanic 99.00 % 66.00/ min 20.00/min 55075 008 72279 5 137.00 mg/dL 10214 008 60709 7 137.00 mg/dL 96066 008 48547 2 97.90 Tympanic 55428 008 02839 1 137.00 mg/dL 36823 008 97651 8 97.90 Tympanic 20243 008 16022 5 67.00 mm[Hg] - Sitting 124.00 /min 83595 008 03064 6 212.00 mg/dL 67026 008 79234 6 212.00 mg/dL 96916 008 52273 9 317.00 mg/dL 13524 008 42927 4 317.00 mg/dL 37176 008 84035 8 252.00 mg/dL 80941 008 70795 0 98.70 Tympanic 18968 008 83781 7 252.00 mg/dL 83140 008 40957 3 98.70 Tympanic 26880 009 91831 9 98.70 Tympanic 28686 009 96705 3 98.20 Tympanic 27725 009 54331 5 98.40 Tympanic 64644 009 93378 5 57.00 mm[Hg] - Sitting 129.00 mm[Hg] - Sitting 98.30 Tympanic 97.00 % 65.00/ min 18.00/min 34645 009 40842 1 255.00 mg/dL 85076 009 51341 4 255.00 mg/dL 79178 009 62681 5 98.20 Tympanic 04247 009 23193 0 255.00 mg/dL 92969 009 21494 0 98.20 Tympanic 29057 009 06482 4 63.00 mm[Hg] - Lying Down 102.00 mm[Hg] - Lying Down 58.00/ min 35724 009 51185 0 167.00 mg/dL 31282 009 94185 1 167.00 mg/dL 94803 009 75861 2 164.00 mg/dL 52544 009 75902 1 164.00 mg/dL 93507 009 40512 5 208.00 mg/dL 56930 010 61739 3 98.40 Tympanic 42293 010 57067 5 98.40 Tympanic 02663 010 70412 7 66 [place] [address]198 010 92591 4 60.00 mm[Hg] - Sitting 143.00 mm[Hg] - Sitting 98.90 Tympanic 98.00 % 67.00/ min 18.00/min 25923 010 21272 2 214.00 mg/dL 98700 010 87781 0 214.00 mg/dL 34346 010 10515 7 214.00 mg/dL 69963 010 36393 6 64.00 mm[Hg] - Sitting 110.00 mm[Hg] - Sitting 72.00/ min 32538 010 07589 7 98.40 Tympanic 80189 010 41706 1 212.00 mg/dL 09409 010 36376 2 212.00 mg/dL 96587 010 21499 1 115.00 mg/dL 82927 010 25607 0 115.00 mg/dL 54615 010 59659 4 98.50 Tympanic 55348 010 29618 4 150.00 mg/dL 91176 010 27117 0 150.00 mg/dL 12648 011 44660 9 98.60 Tympanic 22880 011 94567 1 67.00 mm[Hg] - Sitting 144.00 mm[Hg] - Sitting 98.20 Tympanic 98.00 % 61.00/ min 18.00/min 50857 011 94124 7 290.00 mg/dL 19656 011 45250 2 290.00 mg/dL 86884 011 71664 2 290.00 mg/dL 42922 011 93431 7 54.00 mm[Hg] - Sitting 136.00 mm[Hg] - Sitting 101.00 /min 47777 011 76469 7 98.60 Tympanic 41429 011 56332 5 240.00 mg/dL 31923 011 42534 1 240.00 mg/dL 10345 011 06460 1 156.00 mg/dL 77572 011 76705 9 156.00 mg/dL 56621 011 86326 0 97.80 Tympanic 10979 011 65697 8 343.00 mg/dL 08116 012 55869 9 97.90 Tympanic 59255 012 85519 2 466.00 mg/dL 38925 012 06876 1 466.00 mg/dL 87660 012 26501 3 466.00 mg/dL 25886 012 66940 8 97.90 Tympanic 00041 012 83105 8 56.00 mm[Hg] - Sitting 96.00 mm[Hg] - Sitting 61.00/ min 07474 012 34223 7 350.00 mg/dL 33505 012 55515 5 350.00 mg/dL 83299 012 93175 6 111.00 mg/dL 40701 012 56582 0 111.00 mg/dL 47303 012 31029 5 98.40 Tympanic 31517 012 26462 6 114.00 mg/dL 66754 013 26129 4 74.00 mm[Hg] - Sitting 112.00 mm[Hg] - Sitting 98.40 Tympanic 70.00/ min 18.00/min 09667 013 75640 8 244.00 mg/dL 81479 013 09006 7 244.00 mg/dL 92845 013 82790 1 244.00 mg/dL 01682 013 98679 1 98.20 Tympanic 35066 013 39546 7 72.00 mm[Hg] - Sitting 119.00 mm[Hg] - Sitting 76.00/ min 39211 013 52404 7 253.00 mg/dL 40056 013 76906 4 253.00 mg/dL 46017 013 41294 9 156.00 mg/dL 00246 013 02772 5 156.00 mg/dL 20066 013 96747 4 97.90 Tympanic 38754 013 28541 5 189.00 mg/dL 34549 014 13804 9 98.10 Tympanic 07257 014 08452 0 61.00 mm[Hg] - Sitting 139.00 mm[Hg] - Sitting 98.20 Forehead Scan 99.00 % 66.00/ min 18.00/min 17672 014 63378 3 169.00 mg/dL 36263 014 55146 3 98.10 Tympanic 28545 014 76562 3 75.00 mm[Hg] - Sitting 121.00 mm[Hg] - Sitting 71.00/ min 37093 014 27426 9 221.00 mg/dL 77616 014 99565 9 62.00 mg/dL 74228 014 98561 5 62.00 mg/dL 01226 014 59475 8 156.00 mg/dL 80569 014 67946 6 98.10 Tympanic 85341 014 80491 7 156.00 mg/dL 05848 015 50565 4 12988 015 59649 7 62.00 mm[Hg] - Sitting 142.00 mm[Hg] - Sitting 98.20 Tympanic 99.00 % 67.00/ min 18.00/min 77230 015 48530 9 120.00 mg/dL 47439 015 63848 7 98.00 Tympanic 55342 015 57179 2 82.00 mm[Hg] - Sitting 119.00 /min 99759 015 18740 9 110.00 mg/dL 68504 015 41468 6 104.00 mg/dL 95315 015 47936 0 100.00 mg/dL 98553 015 92935 2 98.10 Tympanic 03297 015 74980 6 100.00 mg/dL 14939 016 78530 2 67.00 mm[Hg] - Sitting 147.00 mm[Hg] - Sitting 99.00 Tympanic 99.00 % 78.00/ min 20.00/min 76308 016 67535 5 158.00 mg/dL 38987 016 80934 1 158.00 mg/dL 44618 016 03665 2 158.00 mg/dL 92198 016 56305 0 66.00 mm[Hg] - Sitting 121.00 mm[Hg] - Sitting 74.00/ min 59806 016 02434 1 97.00 mg/dL 65941 016 18125 5 97.00 mg/dL 33507 016 68398 4 78.00 mg/dL 94143 016 54696 6 78.00 mg/dL 20980 016 66473 5 248.00 mg/dL 34338 016 94847 8 248.00 mg/dL 68201 017 85615 3 54.00 mm[Hg] - Sitting 142.00 mm[Hg] - Sitting 98.30 Tympanic 99.00 % 76.00/ min 18.00/min 25543 017 72013 4 267.00 mg/dL 00792 017 57330 6 73.00 mm[Hg] - Sitting 109.00 mm[Hg] - Sitting 70.00/ min 25008 017 38184 1 184.00 mg/dL 08498 017 01005 5 184.00 mg/dL 52537 017 39534 9 248.00 mg/dL 03305 017 86872 8 299.00 mg/dL 86111 017 08757 3 299.00 mg/dL 90705 018 91178 7 50.00 mm[Hg] - Sitting 125.00 mm[Hg] - Sitting 98.30 Tympanic 98.00 % 76.00/ min 16.00/min 58435 018 74572 3 168.00 mg/dL 15371 018 10195 0 75.00 mm[Hg] - Sitting 121.00 mm[Hg] - Sitting 70.00/ min 97327 018 72398 7 264.00 mg/dL 68830 018 97476 6 132.00 mg/dL 51777 018 83856 6 154.00 mg/dL 59543 018 91501 6 154.00 mg/dL 27371 019 76403 4 63.00 mm[Hg] - Sitting 147.00 mm[Hg] - Sitting 98.50 Tympanic 99.00 % 69.00/ min 18.00/min 73229 019 72626 9 159.00 mg/dL 78925 019 93778 8 73.00 mm[Hg] - Sitting 110.00 mm[Hg] - Sitting 72.00/ min 92956 019 29924 4 191.00 mg/dL 81494 019 48674 8 70.00 mg/dL 84323 019 39763 4 70.00 mg/dL 97415 019 37597 6 198.00 mg/dL 18112 019 87550 0 198.00 mg/dL 23702 020 26705 2 59.00 mm[Hg] - Sitting 131.00 mm[Hg] - Sitting 98.90 Tympanic 99.00 % 69.00/ min 18.00/min 22562 020 18099 7 299.00 mg/dL 07814 020 87129 0 62.00 mm[Hg] - Sitting 132.00 mm[Hg] - Sitting 68.00/ min 83601 020 57553 3 299.00 mg/dL 03175 020 75754 3 299.00 mg/dL 34408 020 95074 9 220.00 mg/dL 30310 020 41558 1 220.00 mg/dL 46551 020 37565 1 270.00 mg/dL 19030 020 36400 4 270.00 mg/dL 02036 020 19512 9 143.00 mg/dL 03803 020 52644 4 143.00 mg/dL 31039 021 40063 0 59.00 mm[Hg] - Sitting 121.00 mm[Hg] - Sitting 98.40 Forehead Scan 98.00 % 70.00/ min 16.00/min 61124 021 78572 0 140.00 mg/dL 46422 021 68725 0 67.00 mm[Hg] - Sitting 130.00 mm[Hg] - Sitting 68.00/ min 08881 021 62517 8 140.00 mg/dL 43486 021 93320 6 140.00 mg/dL 07918 021 67678 8 156.00 mg/dL 55935 021 55883 1 156.00 mg/dL 89379 021 62673 5 146.00 mg/dL 34368 021 85549 4 146.00 mg/dL 64544 021 99052 5 183.00 mg/dL 39758 021 01720 2 183.00 mg/dL 25253 022 67317 3 71924 022 37814 1 43.00 mm[Hg] - Sitting 113.00 mm[Hg] - Sitting 97.80 Tympanic 97.00 % 64.00/ min 18.00/min 60274 022 58930 6 270.00 mg/dL 62849 022 57954 5 68.00 mm[Hg] - Sitting 122.00 mm[Hg] - Sitting 67.00/ min 65048 022 25536 9 270.00 mg/dL 12044 022 29772 4 270.00 mg/dL 61310 022 57579 4 207.00 mg/dL 40830 022 01709 8 207.00 mg/dL 43256 022 47592 9 217.00 mg/dL 97409 022 80551 2 217.00 mg/dL 79097 022 12374 0 192.00 mg/dL 58272 022 28545 9 192.00 mg/dL 48813 023 76452 8 48.00 mm[Hg] - Sitting 116.00 mm[Hg] - Sitting 98.50 Tympanic 97.00 % 63.00/ min 18.00/min 50796 023 93409 9 68.00 mm[Hg] - Sitting 131.00 mm[Hg] - Sitting 68.00/ min 88385 023 54924 8 235.00 mg/dL 05667 023 17302 4 235.00 mg/dL 15020 023 69046 0 235.00 mg/dL 71668 023 46492 0 199.00 mg/dL 69599 023 25828 7 199.00 mg/dL 88852 023 01158 4 233.00 mg/dL 75948 023 51385 3 233.00 mg/dL 24088 023 57333 6 229.00 mg/dL 21638 023 69123 4 229.00 mg/dL 52336 024 53153 3 58.00 mm[Hg] - Sitting 102.00 mm[Hg] - Sitting 58.00/ min 01242 024 64183 9 156.00 mg/dL 86567 024 03764 4 156.00 mg/dL 76764 024 19891 3 156.00 mg/dL 23407 024 73923 0 343.00 mg/dL 36144 024 88749 6 343.00 mg/dL 49341 024 21677 2 167.00 mg/dL 69331 024 56345 0 167.00 mg/dL 74988 024 01282 8 155.00 mg/dL 59672 024 86964 7 155.00 mg/dL 83859 025 98598 0 51.00 mm[Hg] - Lying Down 109.00 mm[Hg] - Lying Down 98.60 Tympanic 95.00 % 67.00/ min 20.00/min 25370 025 63716 0 60.00 mm[Hg] - Sitting 118.00 mm[Hg] - Sitting 98.30 Forehead Scan 98.00 % 68.00/ min 16.00/min 89649 025 89161 3 235.00 mg/dL 05982 025 37965 1 63.00 mm[Hg] - Sitting 110.00 mm[Hg] - Sitting 75.00/ min 47840 025 68555 9 295.00 mg/dL 08878 025 74098 4 94.00 mg/dL 98083 025 97116 1 132.00 mg/dL 54453 025 23862 2 132.00 mg/dL 12951 026 55059 8 50.00 mm[Hg] - Sitting 123.00 mm[Hg] - Sitting 98.50 Tympanic 95.00 % 66.00/ min 18.00/min 61638 026 84264 0 275.00 mg/dL 62498 026 52616 7 275.00 mg/dL 79949 026 23412 1 275.00 mg/dL 35400 026 20954 6 67.00 mm[Hg] - Sitting 123.00 mm[Hg] - Sitting 66.00/ min 14209 026 55286 3 187.00 mg/dL 32454 026 94180 5 187.00 mg/dL 48156 026 58004 0 167.00 mg/dL 74527 026 36214 8 167.00 mg/dL 95285 026 40578 6 387.00 mg/dL 36208 027 01911 7 53.00 mm[Hg] - Sitting 132.00 mm[Hg] - Sitting 98.60 Tympanic 97.00 % 64.00/ min 18.00/min 82500 027 49812 9 189.00 mg/dL 86703 027 45603 4 67.00 mm[Hg] - Sitting 118.00 mm[Hg] - Sitting 66.00/ min 02869 027 46183 2 189.00 mg/dL 50918 027 81996 7 189.00 mg/dL 68522 027 31445 1 105.00 mg/dL 53096 027 51552 8 105.00 mg/dL 77438 027 25981 4 223.00 mg/dL 82051 027 95027 9 223.00 mg/dL 55606 027 01764 9 164.00 mg/dL 50629 028 49291 0 68.00 mm[Hg] - Sitting 115.00 mm[Hg] - Sitting 98.60 Forehead Scan 96.00 % 71.00/ min 16.00/min 53776 028 56510 1 200.00 mg/dL 50136 028 75923 9 200.00 mg/dL 24605 028 99838 1 69.00 mm[Hg] - Sitting 122.00 mm[Hg] - Sitting 67.00/ min 63526 028 44968 3 200.00 mg/dL 62553 028 80112 0 117.00 mg/dL 40214 028 48646 0 117.00 mg/dL 40001 028 81845 1 114.00 mg/dL 77253 028 24434 7 114.00 mg/dL 93290 028 58925 0 179.00 mg/dL 59167 028 33309 8 179.00 mg/dL 41853 029 48447 4 44.00 mm[Hg] - Sitting 121.00 mm[Hg] - Sitting 98.30 Tympanic 97.00 % 65.00/ min 18.00/min 85280 029 40699 9 147.00 mg/dL 23025 029 14609 0 147.00 mg/dL 41654 029 61448 4 147.00 mg/dL 58561 029 67858 1 63.00 mm[Hg] - Sitting 118.00 mm[Hg] - Sitting 74.00/ min 66514 029 63924 2 278.00 mg/dL 22520 029 57805 3 278.00 mg/dL 66572 029 57348 1 241.00 mg/dL 37167 029 83936 8 11761 029 04879 1 504.00 mg/dL 11149 030 27064 0 54.00 mm[Hg] - Sitting 122.00 mm[Hg] - Sitting 98.40 Tympanic 98.00 % 70.00/ min 18.00/min 31931 030 87076 4 242.00 mg/dL 22805 030 80779 8 68.00 mm[Hg] - Sitting 121.00 mm[Hg] - Sitting 68.00/ min 77045 030 74131 2 242.00 mg/dL 25758 030 66926 3 170.00 mg/dL 60995 030 72132 0 170.00 mg/dL 66517 030 35090 4 200.00 mg/dL 62642 030 58939 7 200.00 mg/dL 47377 030 95123 3 131.00 mg/dL 68001 030 63580 5 131.00 mg/dL 33990 031 45300 2 150.00 mg/dL 42000 031 34879 6 60.00 mm[Hg] - Sitting 108.00 mm[Hg] - Sitting 60.00/ min 74359 031 92419 8 150.00 mg/dL 29392 031 35951 4 140.00 mg/dL 10846 031 76896 7 140.00 mg/dL 22072 031 11982 9 140.00 mg/dL 15625 031 37980 0 140.00 mg/dL 80055 031 31211 7 153.00 mg/dL 47867 031 95068 8 153.00 mg/dL 15520 101 79435 2 18.00/mi n 00057 101 34917 8 250.00 mg/dL 75969 101 95248 8 250.00 mg/dL Immunizations Vaccine Date Status COVID-19 09/20/2023 Completed Influenza 09/14/2024 Completed Other 10/08/2023 Completed Shingles 05/27/2011 Completed Tetanus 04/13/2022 Completed TDaP 04/13/2022 Completed Shingles 2 10/05/2018 Completed
--- OUTSIDE RECORDS SUMMARY | 2024-10-03 10:53 | External Medical Summary | Continuity Of Care Document ---
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 unit/0.1 mL intradermal injection solution [Tuberculin PPD] 0.1mL Intradermal 1 time For PPD 2nd Step Give 2nd Step PPD Day 1 and Read results Day 3 (schedule 7 days after 1st READ) 0.1mL 09/08 Inactiv e 2023 49776 32640 0 1 time Intrad ermal False [facility] - Nurse initials indicate verificatio n that [id number] vaccine was administere d by [facility] [...] order For Diabetes 08/25 Inactiv e 2023 65133 63082 9 4 times a day Subcut aneous False Aspirin 325 mg tablet [generic] 325 By Mouth Twice daily For Anticoagulati on 325 09/25 Active 2023 50342 63437 1 Twice daily By Mouth False Ferrous sulfate 325 mg (65 mg iron) tablet [generic] 325 By Mouth Once daily For anemia 325 2023 Active 2023 80384 15600 5 Once daily By Mouth False Linezolid 600 mg tablet [generic] 600 mg By Mouth Every 12 hours For MRSA INFECTION L BKA 600 mg 08/25 Inactiv e 2023 62806 13732 1 Every 12 hours By Mouth False Cefpodoxime 200 mg tablet [generic] 400 mg By Mouth Twice daily For MRSA INFECTION L BKA 400 mg 08/25 Inactiv e 2023 33265 28371 0 Twice daily By Mouth False Coenzyme Q10 100 mg tablet [generic] 100 mg By Mouth Once daily For SUPP 100 mg 2023 Active 2023 82713 99210 0 Once daily By Mouth False Levothyroxi ne 50 mcg tablet [generic] 50mcg By Mouth Once daily For hypothyroidis m 50mcg 2023 Active 2023 98916 50784 0 Once daily By Mouth False One A Day Men Complete 240 mcg-25 mcg-300 mcg tablet 1 tab By Mouth Once daily For supplement 1 tab 2023 Active 2023 28084 39859 1 Once daily By Mouth False Cholecalcif adalberto (vitamin D3) 50 mcg (2,000 unit) tablet [generic] 1 TAB By Mouth Once daily For SUPP 1 TAB 2023 Active 2023 57087 72557 1 Once daily By Mouth False Cetirizine 10 mg tablet [generic] 1 TAB By Mouth At bedtime For Allergies 1 TAB 2023 Active 2023 07101 20741 0 At bedtime By Mouth False Timolol maleate 0.25 % eye drops [generic] 1 drop Both Eyes Twice daily For glaucoma 1 drop 2023 Active 2023 01299 80651 5 Twice daily Both Eyes False Alendronate 35 mg tablet [generic] 35mg By Mouth Every week For SIADH 35mg 08/31 Inactiv e 2023 45781 70583 5 Every week By Mouth False Lantus Solostar U-100 Insulin 100 unit/mL (3 mL) subcutaneou s pen 18 units Subcutaneous Every morning For DIABETES 18 units 08/25 Inactiv e 2023 58738 42860 0 Every morning Subcut aneous False Lantus Solostar U-100 Insulin 100 unit/mL (3 mL) subcutaneou s pen 18 units Subcutaneous Every morning For DIABETES 18 units 2023 Active 2023 29366 06549 0 Every morning Subcut aneous False Linezolid 600 mg tablet [generic] 600 mg By Mouth Every 12 hours For MRSA INFECTION L BKA 600 mg 08/28 Inactiv e 2023 90054 77591 1 Every 12 hours By Mouth False [...] order For Diabetes 08/31 Inactiv e 2023 11217 55145 9 4 times a day Subcut aneous False Cefpodoxime 200 mg tablet [generic] 400 mg By Mouth Twice daily For MRSA INFECTION L BKA 400 mg 08/28 Inactiv e 2023 95211 42521 0 Twice daily By Mouth False Brimonidine 0.1 % eye drops [generic] 1 drop Both Eyes Twice daily For glaucoma 1 drop 2023 Active 2023 18896 20420 0 Twice daily Both Eyes False Metoprolol succinate ER 50 mg tablet,exte nded release 24 hr [generic] 50 mg By Mouth Once daily HOLD FOR SBP <100, or pulse <60 For HTN 50 mg 2023 Active 2023 95220 78589 1 Once daily By Mouth False Amlodipine 2.5 mg tablet [generic] 2.5 mg By Mouth Once daily For HTN 2.5 mg 2023 Active 2023 40800 24065 5 Once daily By Mouth False Docusate sodium 100 mg capsule [generic] 100mg By Mouth Twice daily as needed For constipation HOLD FOR LOOSE STOOLS 100mg 2023 Active 2023 85168 38042 1 Twice daily as needed By Mouth False Atorvastati n 40 mg tablet [generic] 40mg By Mouth Once daily For HDL 40mg 08/26 Inactiv e 2023 79853 41039 5 Once daily By Mouth False Tylenol 325 mg tablet 2 tabs By Mouth Every 4 hours as needed For Pain DO NOT EXCEED 3000 MG APAP/24 Hours 2 tabs 2023 Active 2023 05472 01943 0 Every 4 hours as needed By Mouth False Tylenol 325 mg tablet 2 tabs By Mouth Every 4 hours as needed For Fever >100 DO NOT EXCEED 3000 MG APAP/24 Hours 2 tabs 2023 Active 2023 61202 73488 0 Every 4 hours as needed By Mouth False Dulcolax (bisacodyl) 10 mg rectal suppository One Suppository per rectum PRN if Milk of Magnisia ineffective. Give on day 5 of no BM 1 sup 2023 Active 2023 63243 58346 1 Daily as needed Rectal False Fleet Enema 19 gram-7 gram/118 mL Administer per rectum PRN one time if dulcolax suppository not effective. Give on day 6 of no BM 1 2023 Active 2023 83223 99963 6 Daily as needed Rectal False Dextrose 50 % in water (D50W) intravenous solution [generic] Dextrose 50% evonne 20-50 ml (slow push) Intravenous if Glucagon not effective after 15 minutes. CALL 911 for ED Evaluation. 50% evonne 2023 Active 2023 84416 22481 9 Intrav enous False Glucagon (HCl) Emergency Kit 1 mg solution for injection Administer Glucagon 1 mg Intramuscular if 15 minutes after GLucose Gel is administered Glucose remains less than 70 1 mg 2023 Active 2023 21458 46117 2 Intram uscula r False Glucose Gel 40 % oral gel [Dextrose] PRN If resident is unable to swallow (with or without symptoms) and Glucose results less than 70 give GLucose 40% Gel 1 tube orally - Recheck Glucose 15 minutes after administratio n. 1 tube 2023 Active 2023 44654 60775 8 By Mouth False Milk of Magnesia 400 mg/5 mL oral suspension [Magnesium hydroxide] PRN 30ml By Mouth Daily as needed for constipation one time daily if no BM, on day 4 of no BM (PRN refer to instructions) For Constipation 30 mL 2023 Active 2023 16460 29648 6 Daily as needed By Mouth False Atorvastati n 40 mg tablet [generic] 08/26 Inactiv e 2023 67210 30305 5 Atorvastati n 40 mg tablet [generic] 40mg By Mouth Once daily For HDL 40mg 2023 Active 2023 27964 81181 5 Once daily By Mouth False Insulin aspart (U-100) 100 unit/mL (3 mL) subcutaneou s pen [generic] 15 units Subcutaneous 1 time For dm 15 units 08/26 Inactiv e 2023 01428 74032 5 1 time Subcut aneous False Problems Code Description Start Date End Date Status D64.9 Anemia, unspecified 08/25/2024 Activ e I25.10 Atherosclerotic hear t disease of [place] coronary artery without angina pectoris 08/25/2024 Active [...] Temperature SpO2 Blood Sugar Pulse Respirations 004 19993 8 67.00 mm[Hg] - Sitting 145.00 mm[Hg] - Sitting 98.50 Forehead Scan 96.00 % 81.00/ min 16.00/min 81437 004 97503 2 67.00 mm[Hg] - Sitting 145.00 mm[Hg] - Sitting 98.50 Tympanic 81.00/ min 16.00/min 96902 004 69694 5 56.00 mm[Hg] - Sitting 142.00 mm[Hg] - Sitting 136.40 NI 100.20 Tympanic 96.00 % 92.00/ min 18.00/min 16868 004 23869 6 28488 004 69687 4 143.00 mg/dL 64727 004 81229 0 97.80 Tympanic 90056 005 65177 7 60.00 mm[Hg] - Sitting 140.00 mm[Hg] - Sitting 98.00 Tympanic 84.00/ min 18.00/min 99855 005 06619 0 63.00 mm[Hg] - Sitting 141.00 mm[Hg] - Sitting 98.20 Tympanic 92.00 % 63.00/ min 16.00/min 73030 005 55706 8 69.00 mm[Hg] - Sitting 106.00 mm[Hg] - Sitting 97.20 Tympanic 32493 005 67622 7 69.00/ min 16.00/min 53721 005 41987 3 69.00 mm[Hg] - Sitting 106.00 mm[Hg] - Sitting 98.20 Tympanic 69.00/ min 16.00/min 84566 005 29021 1 367.00 mg/dL 41343 005 10626 2 97.20 Tympanic 22151 005 36291 4 97.20 Tympanic 83570 005 00166 0 69.00 mm[Hg] - Sitting 106.00 mm[Hg] - Sitting 69.00/ min 15581 005 25912 3 452.00 mg/dL 08924 005 67915 3 452.00 mg/dL 89649 005 93240 5 352.00 mg/dL 85629 005 48235 3 352.00 mg/dL 50624 005 65421 7 98.20 Tympanic 29901 005 56061 3 101.00 mg/dL 87509 005 40551 8 101.00 mg/dL 99313 006 23368 4 66.00 mm[Hg] - Sitting 107.00 mm[Hg] - Sitting 98.00 Tympanic 66.00/ min 18.00/min 38880 006 01241 0 62.00 mm[Hg] - Sitting 162.00 mm[Hg] - Sitting 98.20 Tympanic 96.00 % 60.00/ min 16.00/min 30766 006 65995 4 62.00 mm[Hg] - Sitting 162.00 mm[Hg] - Sitting 98.00 Tympanic 70.00/ min 18.00/min 70334 006 50678 8 62.00 mm[Hg] - Sitting 162.00 mm[Hg] - Sitting 98.20 Tympanic 70.00/ min 18.00/min 22178 006 80020 2 66.00 mm[Hg] - Sitting 132.00 mm[Hg] - Sitting 98.60 Tympanic 74.00/ min 16.00/min 14643 006 03082 5 159.00 mg/dL 07624 006 79929 1 159.00 mg/dL 75369 006 58378 8 98.00 Tympanic 15035 006 26217 2 62.00 mm[Hg] - Sitting 162.00 mm[Hg] - Sitting 70.00/ min 72480 006 34929 7 264.00 mg/dL 59889 006 32328 7 264.00 mg/dL 27203 006 31592 4 196.00 mg/dL 60534 006 65915 3 98.20 Tympanic 62996 006 42099 6 271.00 mg/dL 01328 007 20301 3 97.20 Tympanic 67887 007 41939 2 63.00 mm[Hg] - Sitting 132.00 mm[Hg] - Sitting 98.50 Tympanic 94.00 % 66.00/ min 16.00/min 13721 007 65839 5 188.00 mg/dL 40872 007 78228 2 188.00 mg/dL 32447 007 58656 2 188.00 mg/dL 25528 007 09674 7 97.20 Tympanic 06650 007 32361 6 97.20 Tympanic 14363 007 09998 5 67.00 mm[Hg] - Sitting 152.00 mm[Hg] - Sitting 68.00/ min 01096 007 27443 0 141.00 mg/dL 42314 007 49597 3 141.00 mg/dL 09232 007 91134 1 366.00 mg/dL 18632 007 06504 7 366.00 mg/dL 25966 007 73152 7 98.00 Tympanic 18819 007 06327 6 324.00 mg/dL 04948 007 82365 3 98.00 Tympanic 71467 007 95122 7 324.00 mg/dL 02620 008 84305 0 98.00 Tympanic 09845 008 50204 2 97.90 Tympanic 72262 008 54486 0 98.20 Tympanic 99782 008 29219 0 73.00 mm[Hg] - Sitting 156.00 mm[Hg] - Sitting 98.60 Tympanic 99.00 % 66.00/ min 20.00/min 07555 008 42621 5 137.00 mg/dL 29562 008 62217 7 137.00 mg/dL 13266 008 80067 2 97.90 Tympanic 18770 008 21785 1 137.00 mg/dL 33778 008 01171 8 97.90 Tympanic 63807 008 91404 5 67.00 mm[Hg] - Sitting 124.00 /min 94406 008 46652 6 212.00 mg/dL 19426 008 83219 6 212.00 mg/dL 64220 008 20087 9 317.00 mg/dL 27875 008 62773 4 317.00 mg/dL 75103 008 30971 8 252.00 mg/dL 39006 008 72223 0 98.70 Tympanic 76576 008 16205 7 252.00 mg/dL 04305 008 86866 3 98.70 Tympanic 71781 009 90607 9 98.70 Tympanic 04240 009 27257 3 98.20 Tympanic 16591 009 86191 5 98.40 Tympanic 80854 009 19486 5 57.00 mm[Hg] - Sitting 129.00 mm[Hg] - Sitting 98.30 Tympanic 97.00 % 65.00/ min 18.00/min 04943 009 51434 1 255.00 mg/dL 75332 009 80475 4 255.00 mg/dL 79242 009 60138 5 98.20 Tympanic 08455 009 52049 0 255.00 mg/dL 78313 009 12317 0 98.20 Tympanic 27821 009 31435 4 63.00 mm[Hg] - Lying Down 102.00 mm[Hg] - Lying Down 58.00/ min 70663 009 85046 0 167.00 mg/dL 05271 009 41646 1 167.00 mg/dL 94181 009 52322 2 164.00 mg/dL 74188 009 48466 1 164.00 mg/dL 47023 009 95224 5 208.00 mg/dL 04828 010 41906 3 98.40 Tympanic 48551 010 05385 5 98.40 Tympanic 25627 010 20067 7 66 [place] [address] 010 49324 4 60.00 mm[Hg] - Sitting 143.00 mm[Hg] - Sitting 98.90 Tympanic 98.00 % 67.00/ min 18.00/min 56646 010 63068 2 214.00 mg/dL 19354 010 30401 0 214.00 mg/dL 18994 010 36077 7 214.00 mg/dL 66688 010 06376 6 64.00 mm[Hg] - Sitting 110.00 mm[Hg] - Sitting 72.00/ min 69572 010 33386 7 98.40 Tympanic 25483 010 31232 1 212.00 mg/dL 68329 010 15019 2 212.00 mg/dL 43375 010 51030 1 115.00 mg/dL 09551 010 20331 0 115.00 mg/dL 22591 010 24847 4 98.50 Tympanic 61496 010 49278 4 150.00 mg/dL 96396 010 69614 0 150.00 mg/dL 99857 011 86760 9 98.60 Tympanic 31749 011 98978 1 67.00 mm[Hg] - Sitting 144.00 mm[Hg] - Sitting 98.20 Tympanic 98.00 % 61.00/ min 18.00/min 47944 011 82379 7 290.00 mg/dL 81553 011 28073 2 290.00 mg/dL 24623 011 98600 2 290.00 mg/dL 57584 011 18360 7 54.00 mm[Hg] - Sitting 136.00 mm[Hg] - Sitting 101.00 /min 50873 011 43976 7 98.60 Tympanic 09062 011 79567 5 240.00 mg/dL 87440 011 65558 1 240.00 mg/dL 38353 011 78725 1 156.00 mg/dL 33063 011 08369 9 156.00 mg/dL 85994 011 66804 0 97.80 Tympanic 26567 011 23829 8 343.00 mg/dL 36546 012 32318 9 97.90 Tympanic 74106 012 89538 2 466.00 mg/dL 67098 012 03765 1 466.00 mg/dL 62211 012 79809 3 466.00 mg/dL 43213 012 79365 8 97.90 Tympanic 58656 012 16731 8 56.00 mm[Hg] - Sitting 96.00 mm[Hg] - Sitting 61.00/ min 49272 012 84197 7 350.00 mg/dL 16672 012 81857 5 350.00 mg/dL 56151 012 39737 6 111.00 mg/dL 57903 012 24555 0 111.00 mg/dL 06207 012 93831 5 98.40 Tympanic 71403 012 19366 6 114.00 mg/dL 62655 013 66508 4 74.00 mm[Hg] - Sitting 112.00 mm[Hg] - Sitting 98.40 Tympanic 70.00/ min 18.00/min 40829 013 53646 8 244.00 mg/dL 74062 013 60056 7 244.00 mg/dL 05353 013 89477 1 244.00 mg/dL 89181 013 93496 1 98.20 Tympanic 95894 013 88805 7 72.00 mm[Hg] - Sitting 119.00 mm[Hg] - Sitting 76.00/ min 22831 013 09665 7 253.00 mg/dL 82931 013 06122 4 253.00 mg/dL 84335 013 11728 9 156.00 mg/dL 78972 013 37491 5 156.00 mg/dL 99541 013 40761 4 97.90 Tympanic 32565 013 81336 5 189.00 mg/dL 73455 014 48734 9 98.10 Tympanic 58783 014 32634 0 61.00 mm[Hg] - Sitting 139.00 mm[Hg] - Sitting 98.20 Forehead Scan 99.00 % 66.00/ min 18.00/min 72543 014 67321 3 169.00 mg/dL 63063 014 81187 3 98.10 Tympanic 10256 014 35170 3 75.00 mm[Hg] - Sitting 121.00 mm[Hg] - Sitting 71.00/ min 92055 014 65538 9 221.00 mg/dL 59490 014 80663 9 62.00 mg/dL 41010 014 19089 5 62.00 mg/dL 62537 014 29367 8 156.00 mg/dL 90800 014 51229 6 98.10 Tympanic 16911 014 52354 7 156.00 mg/dL 15075 015 08519 4 99403 015 24895 7 62.00 mm[Hg] - Sitting 142.00 mm[Hg] - Sitting 98.20 Tympanic 99.00 % 67.00/ min 18.00/min 12206 015 52710 9 120.00 mg/dL 73486 015 53416 7 98.00 Tympanic 89339 015 34295 2 82.00 mm[Hg] - Sitting 119.00 /min 64368 015 90613 9 110.00 mg/dL 36988 015 57229 6 104.00 mg/dL 61175 015 30298 0 100.00 mg/dL 59266 015 77521 2 98.10 Tympanic 84403 015 49735 6 100.00 mg/dL 86354 016 34785 2 67.00 mm[Hg] - Sitting 147.00 mm[Hg] - Sitting 99.00 Tympanic 99.00 % 78.00/ min 20.00/min 81147 016 52126 5 158.00 mg/dL 49636 016 35460 1 158.00 mg/dL 85787 016 78249 2 158.00 mg/dL 38987 016 26457 0 66.00 mm[Hg] - Sitting 121.00 mm[Hg] - Sitting 74.00/ min 76419 016 13284 1 97.00 mg/dL 03165 016 13373 5 97.00 mg/dL 17166 016 75832 4 78.00 mg/dL 37514 016 62448 6 78.00 mg/dL 50139 016 94497 5 248.00 mg/dL 68646 016 74223 8 248.00 mg/dL 10558 017 29175 3 54.00 mm[Hg] - Sitting 142.00 mm[Hg] - Sitting 98.30 Tympanic 99.00 % 76.00/ min 18.00/min 41658 017 07958 4 267.00 mg/dL 69796 017 21383 6 73.00 mm[Hg] - Sitting 109.00 mm[Hg] - Sitting 70.00/ min 98529 017 94141 1 184.00 mg/dL 14119 017 96982 5 184.00 mg/dL 67759 017 46471 9 248.00 mg/dL 74820 017 16487 8 299.00 mg/dL 54841 017 99690 3 299.00 mg/dL 27554 018 56134 7 50.00 mm[Hg] - Sitting 125.00 mm[Hg] - Sitting 98.30 Tympanic 98.00 % 76.00/ min 16.00/min 64638 018 78634 3 168.00 mg/dL 82209 018 97658 0 75.00 mm[Hg] - Sitting 121.00 mm[Hg] - Sitting 70.00/ min 60552 018 14892 7 264.00 mg/dL 63860 018 60635 6 132.00 mg/dL 86062 018 78645 6 154.00 mg/dL 54282 018 92457 6 154.00 mg/dL 69771 019 43830 4 63.00 mm[Hg] - Sitting 147.00 mm[Hg] - Sitting 98.50 Tympanic 99.00 % 69.00/ min 18.00/min 63006 019 20454 9 159.00 mg/dL 14198 019 51966 8 73.00 mm[Hg] - Sitting 110.00 mm[Hg] - Sitting 72.00/ min 10064 019 13313 4 191.00 mg/dL 73758 019 32714 8 70.00 mg/dL 73446 019 43490 4 70.00 mg/dL 53793 019 27941 6 198.00 mg/dL 34349 019 72054 0 198.00 mg/dL 01902 020 56698 2 59.00 mm[Hg] - Sitting 131.00 mm[Hg] - Sitting 98.90 Tympanic 99.00 % 69.00/ min 18.00/min 31563 020 78599 7 299.00 mg/dL 17671 020 03631 0 62.00 mm[Hg] - Sitting 132.00 mm[Hg] - Sitting 68.00/ min 99776 020 80271 3 299.00 mg/dL 09798 020 03646 3 299.00 mg/dL 04158 020 73236 9 220.00 mg/dL 74381 020 05034 1 220.00 mg/dL 45089 020 83898 1 270.00 mg/dL 94557 020 05564 4 270.00 mg/dL 62429 020 97250 9 143.00 mg/dL 06376 020 28696 4 143.00 mg/dL 92683 021 87244 0 59.00 mm[Hg] - Sitting 121.00 mm[Hg] - Sitting 98.40 Forehead Scan 98.00 % 70.00/ min 16.00/min 77132 021 98262 0 140.00 mg/dL 10256 021 83731 0 67.00 mm[Hg] - Sitting 130.00 mm[Hg] - Sitting 68.00/ min 05314 021 64189 8 140.00 mg/dL 62421 021 89074 6 140.00 mg/dL 36814 021 55524 8 156.00 mg/dL 02467 021 99019 1 156.00 mg/dL 34014 021 13033 5 146.00 mg/dL 18043 021 19049 4 146.00 mg/dL 86146 021 87638 5 183.00 mg/dL 12145 021 51716 2 183.00 mg/dL 29423 022 84004 3 32749 022 18293 1 43.00 mm[Hg] - Sitting 113.00 mm[Hg] - Sitting 97.80 Tympanic 97.00 % 64.00/ min 18.00/min 10644 022 20918 6 270.00 mg/dL 29152 022 80287 5 68.00 mm[Hg] - Sitting 122.00 mm[Hg] - Sitting 67.00/ min 80199 022 49905 9 270.00 mg/dL 65347 022 35638 4 270.00 mg/dL 37293 022 89927 4 207.00 mg/dL 31119 022 42673 8 207.00 mg/dL 21150 022 58755 9 217.00 mg/dL 60641 022 58332 2 217.00 mg/dL 52010 022 34354 0 192.00 mg/dL 46725 022 22820 9 192.00 mg/dL 88047 023 00443 8 48.00 mm[Hg] - Sitting 116.00 mm[Hg] - Sitting 98.50 Tympanic 97.00 % 63.00/ min 18.00/min 60869 023 05820 9 68.00 mm[Hg] - Sitting 131.00 mm[Hg] - Sitting 68.00/ min 99055 023 33635 8 235.00 mg/dL 53190 023 79490 4 235.00 mg/dL 76882 023 81052 0 235.00 mg/dL 47177 023 08795 0 199.00 mg/dL 22913 023 87989 7 199.00 mg/dL 02075 023 52482 4 233.00 mg/dL 80615 023 73073 3 233.00 mg/dL 62617 023 51794 6 229.00 mg/dL 33335 023 66176 4 229.00 mg/dL 13671 024 51524 3 58.00 mm[Hg] - Sitting 102.00 mm[Hg] - Sitting 58.00/ min 54079 024 48130 9 156.00 mg/dL 68980 024 65750 4 156.00 mg/dL 95003 024 82423 3 156.00 mg/dL 52494 024 02568 0 343.00 mg/dL 92867 024 87902 6 343.00 mg/dL 13080 024 44106 2 167.00 mg/dL 09501 024 88460 0 167.00 mg/dL 51331 024 77134 8 155.00 mg/dL 94159 024 06346 7 155.00 mg/dL 89444 025 79202 0 51.00 mm[Hg] - Lying Down 109.00 mm[Hg] - Lying Down 98.60 Tympanic 95.00 % 67.00/ min 20.00/min 77354 025 08362 0 60.00 mm[Hg] - Sitting 118.00 mm[Hg] - Sitting 98.30 Forehead Scan 98.00 % 68.00/ min 16.00/min 54053 025 59689 3 235.00 mg/dL 55391 025 33442 1 63.00 mm[Hg] - Sitting 110.00 mm[Hg] - Sitting 75.00/ min 39921 025 56937 9 295.00 mg/dL 50399 025 36818 4 94.00 mg/dL 01600 025 45047 1 132.00 mg/dL 54321 025 14047 2 132.00 mg/dL 28121 026 33831 8 50.00 mm[Hg] - Sitting 123.00 mm[Hg] - Sitting 98.50 Tympanic 95.00 % 66.00/ min 18.00/min 75900 026 51531 0 275.00 mg/dL 96035 026 21711 7 275.00 mg/dL 25778 026 81165 1 275.00 mg/dL 03331 026 33778 6 67.00 mm[Hg] - Sitting 123.00 mm[Hg] - Sitting 66.00/ min 38921 026 21372 3 187.00 mg/dL 63499 026 91502 5 187.00 mg/dL 86843 026 77085 0 167.00 mg/dL 52514 026 51077 8 167.00 mg/dL 41395 026 55558 6 387.00 mg/dL 51793 027 41938 7 53.00 mm[Hg] - Sitting 132.00 mm[Hg] - Sitting 98.60 Tympanic 97.00 % 64.00/ min 18.00/min 43091 027 67113 9 189.00 mg/dL 08316 027 10518 4 67.00 mm[Hg] - Sitting 118.00 mm[Hg] - Sitting 66.00/ min 94492 027 10935 2 189.00 mg/dL 52919 027 07558 7 189.00 mg/dL 81876 027 55927 1 105.00 mg/dL 02194 027 75465 8 105.00 mg/dL 79635 027 15949 4 223.00 mg/dL 21561 027 27393 9 223.00 mg/dL 99806 027 09371 9 164.00 mg/dL 90609 028 72036 0 68.00 mm[Hg] - Sitting 115.00 mm[Hg] - Sitting 98.60 Forehead Scan 96.00 % 71.00/ min 16.00/min 87024 028 36759 1 200.00 mg/dL 26787 028 59803 9 200.00 mg/dL 91779 028 98656 1 69.00 mm[Hg] - Sitting 122.00 mm[Hg] - Sitting 67.00/ min 18499 028 77940 3 200.00 mg/dL 51037 028 31705 0 117.00 mg/dL 71047 028 18180 0 117.00 mg/dL 44894 028 77870 1 114.00 mg/dL 06448 028 06561 7 114.00 mg/dL 83341 028 25659 0 179.00 mg/dL 76170 028 47191 8 179.00 mg/dL 46144 029 16141 4 44.00 mm[Hg] - Sitting 121.00 mm[Hg] - Sitting 98.30 Tympanic 97.00 % 65.00/ min 18.00/min 18195 029 45468 9 147.00 mg/dL 62229 029 28773 0 147.00 mg/dL 10842 029 56590 4 147.00 mg/dL 95425 029 75155 1 63.00 mm[Hg] - Sitting 118.00 mm[Hg] - Sitting 74.00/ min 68751 029 00002 2 278.00 mg/dL 95390 029 00194 3 278.00 mg/dL 22684 029 94070 1 241.00 mg/dL 87703 029 62137 8 57831 029 53162 1 504.00 mg/dL 86691 030 22623 0 54.00 mm[Hg] - Sitting 122.00 mm[Hg] - Sitting 98.40 Tympanic 98.00 % 70.00/ min 18.00/min 22254 030 86959 4 242.00 mg/dL 60665 030 99866 8 68.00 mm[Hg] - Sitting 121.00 mm[Hg] - Sitting 68.00/ min 67618 030 44372 2 242.00 mg/dL 24623 030 76906 3 170.00 mg/dL 82461 030 55395 0 170.00 mg/dL 65494 030 21243 4 200.00 mg/dL 62775 030 20196 7 200.00 mg/dL 41425 030 80267 3 131.00 mg/dL 22294 030 09416 5 131.00 mg/dL 28450 031 65214 2 150.00 mg/dL 01672 031 01575 6 60.00 mm[Hg] - Sitting 108.00 mm[Hg] - Sitting 60.00/ min 94637 031 72319 8 150.00 mg/dL 65692 031 01868 4 140.00 mg/dL 36568 031 34610 7 140.00 mg/dL 21702 031 72896 9 140.00 mg/dL 12280 031 89933 0 140.00 mg/dL Immunizations Vaccine Date Status COVID-19 09/20/2023 Completed Influenza 09/14/2024 Completed Other 10/08/2023 Completed Shingles 05/27/2011 Completed Tetanus 04/13/2022 Completed TDaP 04/13/2022 Completed Shingles 2 10/05/2018 Completed
--- OUTSIDE RECORDS SUMMARY | 2024-10-03 10:53 | External Medical Summary | Continuity Of Care Document ---
Author Name Unknown Address [address] [address] Organization [facility] () Care Team Providers Care Machine Sneller Name Role Phone DO Machado Amy Primary Care Provider [phone] Allergies Allergy Reaction Start Date End Date [...] 3 0.1 mL 08/29 Inactiv e 2023 24201 28876 0 1 time Intrad ermal False Tubersol 5 tub. unit/0.1 mL intradermal injection solution [Tuberculin PPD] 0.1mL Intradermal 1 time For PPD 2nd Step Give 2nd Step PPD Day 1 and Read results Day 3 (schedule 7 days after 1st READ) 0.1mL 09/08 Inactiv e 2023 66452 57381 0 1 time Intrad ermal False [facility] - Nurse initials indicate verificatio n that [id number] vaccine was administere d by [facility] [...] order For Diabetes 08/25 Inactiv e 2023 58283 87379 9 4 times a day Subcut aneous False Aspirin 325 mg tablet [generic] 325 By Mouth Twice daily For Anticoagulati on 325 09/25 Active 2023 89338 43879 1 Twice daily By Mouth False Ferrous sulfate 325 mg (65 mg iron) tablet [generic] 325 By Mouth Once daily For anemia 325 2023 Active 2023 86422 97069 5 Once daily By Mouth False Linezolid 600 mg tablet [generic] 600 mg By Mouth Every 12 hours For MRSA INFECTION L BKA 600 mg 08/25 Inactiv e 2023 59449 52886 1 Every 12 hours By Mouth False Cefpodoxime 200 mg tablet [generic] 400 mg By Mouth Twice daily For MRSA INFECTION L BKA 400 mg 08/25 Inactiv e 2023 43865 30082 0 Twice daily By Mouth False Coenzyme Q10 100 mg tablet [generic] 100 mg By Mouth Once daily For SUPP 100 mg 2023 Active 2023 15538 74795 0 Once daily By Mouth False Levothyroxi ne 50 mcg tablet [generic] 50mcg By Mouth Once daily For hypothyroidis m 50mcg 2023 Active 2023 13908 06928 0 Once daily By Mouth False One A Day Men Complete 240 mcg-25 mcg-300 mcg tablet 1 tab By Mouth Once daily For supplement 1 tab 2023 Active 2023 37317 68309 1 Once daily By Mouth False Cholecalcif adalberto (vitamin D3) 50 mcg (2,000 unit) tablet [generic] 1 TAB By Mouth Once daily For SUPP 1 TAB 2023 Active 2023 41856 61985 1 Once daily By Mouth False Cetirizine 10 mg tablet [generic] 1 TAB By Mouth At bedtime For Allergies 1 TAB 2023 Active 2023 44194 27835 0 At bedtime By Mouth False Timolol maleate 0.25 % eye drops [generic] 1 drop Both Eyes Twice daily For glaucoma 1 drop 2023 Active 2023 51456 80685 5 Twice daily Both Eyes False Alendronate 35 mg tablet [generic] 35mg By Mouth Every week For SIADH 35mg 08/31 Inactiv e 2023 02435 76734 5 Every week By Mouth False Lantus Solostar U-100 Insulin 100 unit/mL (3 mL) subcutaneou s pen 18 units Subcutaneous Every morning For DIABETES 18 units 08/25 Inactiv e 2023 50197 31922 0 Every morning Subcut aneous False Lantus Solostar U-100 Insulin 100 unit/mL (3 mL) subcutaneou s pen 18 units Subcutaneous Every morning For DIABETES 18 units 2023 Active 2023 27587 83096 0 Every morning Subcut aneous False Linezolid 600 mg tablet [generic] 600 mg By Mouth Every 12 hours For MRSA INFECTION L BKA 600 mg 08/28 Inactiv e 2023 07123 25415 1 Every 12 hours By Mouth False [...] order For Diabetes 08/31 Inactiv e 2023 65462 40981 9 4 times a day Subcut aneous False Cefpodoxime 200 mg tablet [generic] 400 mg By Mouth Twice daily For MRSA INFECTION L BKA 400 mg 08/28 Inactiv e 2023 69958 98073 0 Twice daily By Mouth False Brimonidine 0.1 % eye drops [generic] 1 drop Both Eyes Twice daily For glaucoma 1 drop 2023 Active 2023 23877 41533 0 Twice daily Both Eyes False Metoprolol succinate ER 50 mg tablet,exte nded release 24 hr [generic] 50 mg By Mouth Once daily HOLD FOR SBP <100, or pulse <60 For HTN 50 mg 2023 Active 2023 28931 50965 1 Once daily By Mouth False Amlodipine 2.5 mg tablet [generic] 2.5 mg By Mouth Once daily For HTN 2.5 mg 2023 Active 2023 45394 71430 5 Once daily By Mouth False Docusate sodium 100 mg capsule [generic] 100mg By Mouth Twice daily as needed For constipation HOLD FOR LOOSE STOOLS 100mg 2023 Active 2023 70079 82039 1 Twice daily as needed By Mouth False Atorvastati n 40 mg tablet [generic] 40mg By Mouth Once daily For HDL 40mg 08/26 Inactiv e 2023 42315 65791 5 Once daily By Mouth False Tylenol 325 mg tablet 2 tabs By Mouth Every 4 hours as needed For Pain DO NOT EXCEED 3000 MG APAP/24 Hours 2 tabs 2023 Active 2023 06369 27206 0 Every 4 hours as needed By Mouth False Tylenol 325 mg tablet 2 tabs By Mouth Every 4 hours as needed For Fever >100 DO NOT EXCEED 3000 MG APAP/24 Hours 2 tabs 2023 Active 2023 55290 32201 0 Every 4 hours as needed By Mouth False Dulcolax (bisacodyl) 10 mg rectal suppository One Suppository per rectum PRN if Milk of Magnisia ineffective. Give on day 5 of no BM 1 sup 2023 Active 2023 94118 02405 1 Daily as needed Rectal False Fleet Enema 19 gram-7 gram/118 mL Administer per rectum PRN one time if dulcolax suppository not effective. Give on day 6 of no BM 1 2023 Active 2023 95326 83496 6 Daily as needed Rectal False Dextrose 50 % in water (D50W) intravenous solution [generic] Dextrose 50% evonne 20-50 ml (slow push) Intravenous if Glucagon not effective after 15 minutes. CALL 911 for ED Evaluation. 50% evonne 2023 Active 2023 28876 04072 9 Intrav enous False Glucagon (HCl) Emergency Kit 1 mg solution for injection Administer Glucagon 1 mg Intramuscular if 15 minutes after GLucose Gel is administered Glucose remains less than 70 1 mg 2023 Active 2023 44833 75397 2 Intram uscula r False Glucose Gel 40 % oral gel [Dextrose] PRN If resident is unable to swallow (with or without symptoms) and Glucose results less than 70 give GLucose 40% Gel 1 tube orally - Recheck Glucose 15 minutes after administratio n. 1 tube 2023 Active 2023 56806 77404 8 By Mouth False Milk of Magnesia 400 mg/5 mL oral suspension [Magnesium hydroxide] PRN 30ml By Mouth Daily as needed for constipation one time daily if no BM, on day 4 of no BM (PRN refer to instructions) For Constipation 30 mL 2023 Active 2023 03651 82062 6 Daily as needed By Mouth False Atorvastati n 40 mg tablet [generic] 08/26 Inactiv e 2023 14343 32253 5 Atorvastati n 40 mg tablet [generic] 40mg By Mouth Once daily For HDL 40mg 2023 Active 2023 13338 46342 5 Once daily By Mouth False Insulin aspart (U-100) 100 unit/mL (3 mL) subcutaneou s pen [generic] 15 units Subcutaneous 1 time For dm 15 units 08/26 Inactiv e 2023 54813 47632 5 1 time Subcut aneous False Humalog KwikPen (U-100) Insulin 100 unit/mL subcutaneou s 15 units Subcutaneous 1 time For dm 15 units 08/27 Inactiv e 2023 65455 18754 9 1 time Subcut aneous False Linezolid 600 mg tablet [generic] 600 mg By Mouth Every 12 hours For MRSA INFECTION L BKA 600 mg 09/06 Inactiv e 2023 39988 67656 1 Every 12 hours By Mouth False Cefpodoxime 200 mg tablet [generic] 400 mg By Mouth Twice daily For MRSA INFECTION L BKA 400 mg 08/31 Inactiv e 2023 02303 89328 0 Twice daily By Mouth False Senna 8.6 mg tablet 8.6 mg By Mouth Once daily For Constipation 8.6 mg 09/07 Inactiv e 2023 24885 35313 1 Once daily By Mouth False Humalog [...] . Per Carb 09/19 Inactiv e 2023 54309 10188 9 4 times a day Subcut aneous False Alendronate 35 mg tablet [generic] 08/31 Inactiv e 2023 67596 44063 5 Alendronate 35 mg tablet [generic] 35mg By Mouth Every week For Osteoporosis 35mg 09/21 Inactiv e 2023 36312 97392 5 Every week By Mouth False ProSource 10 gram-100 kcal/30 mL oral liquid 30 ml By Mouth Once daily For wound healing 30 ml 2023 Active 2023 24468 36907 2 Once daily By Mouth False Clotrimazol e 1 % topical cream [generic] 1 applicaiton Topical Twice daily For tinea, apply to groin rash after cleansing and throughouly drying. Can discontinue order 3 days after rash resolves. 1 applica stacy 09/08 Inactiv e 2023 29069 95181 0 Twice daily Topica l False MAGIC MIX 1:1:1:1 : ZINC OXIDE EXTERNAL OINTMENT 40%; HYDROCOTISO NE EXTERNAL CREAM 1%; NYSTATIN EXTERNAL CREAM 029219T/GM; SILVADENE CREAM 1% Every shift Apply topically to MASD area on coccyx/buttoc ks each shift and as needed for incontinence care For MASD on coccyx layer 2023 Active 2023 Every shift Topica l False Senna 8.6 mg tablet 8.6 mg By Mouth Once daily For Constipation 8.6 mg 09/07 Inactiv e 2023 15615 71502 1 Once daily By Mouth False Senna 8.6 mg tablet 8.6 mg By Mouth Once daily As Needed For Constipation 8.6 mg 2023 Active 2023 08698 86144 1 Once daily By Mouth False BD AutoShield Duo Pen Needle 30 gauge x 3/16in 1 pen needle Subcutaneous 4 times a day For DM 1 pen needle 202300 Active 2023 57574 07282 5 4 times a day Subcut aneous False Hydrocortis one 1 % topical ointment [generic] 1 application Topical Twice daily For tinea *mix 1:1 with clotrimazole cream and apply to clean/dry groin rash 1 applica peggy 09/19 Inactiv e 2023 83604 28721 6 Twice daily Topica l False Clotrimazol e 1 % topical cream [generic] 1 applicaiton Topical Twice daily For tinea, apply to groin rash after cleansing and throughouly drying. MIX WITH HYDROCORTISON E Can discontinue order 3 days after rash resolves. 1 applica stacy 2023 Active 2023 78488 64893 0 Twice daily Topica l False Humalog KwikPen (U-100) Insulin 100 unit/mL subcutaneou s 09/19 Inactiv e 2023 94984 00839 9 Humalog KwikPen (U-100) Insulin 100 unit/mL [...] abnormalities . Per Carb 2023 Active 2023 10124 08494 9 4 times a day Subcut aneous False Humalog KwikPen (U-100) Insulin 100 unit/mL subcutaneou s 10 units Subcutaneous 1 time For DM 10 units 09/20 Inactiv e 2023 15209 37978 9 1 time Subcut aneous False Alendronate 35 mg tablet [generic] 09/21 Inactiv e 2023 66419 26322 5 Alendronate 35 mg tablet [generic] 35mg By Mouth Every week For Osteoporosis take with a full glass of water on an empty stomach no other food or medication remain upright do not crush 35mg 2023 Active 2023 72506 55745 5 Every week By Mouth False Humalog KwikPen (U-100) Insulin 100 unit/mL subcutaneou s 08/31 Inactiv e 2023 47034 57196 9 MediHoney HCS 4 1/2in X 4 1/2in bandage Cleanse area with NSS, apply one medihoney hydrocolloid dressing, non adherent dressing, kerlix secure with paper tape daily. For wound stage III 1 09/19 Inactiv e 2023 03833 92954 1 Once daily Topica l False Betadine 10 % topical solution wound care cleanse withnormal saline, apply gauze soaked in betadine, leave on 5 minutes pat dry leave open to air 1 2023 Active 2023 75897 74751 1 Once daily Topica l False Problems Code Description Start Date End Date Status D64.9 Anemia, unspecified 08/25/2024 Activ e I25.10 Atherosclerotic hear t disease of [place] coronary artery without angina pectoris 08/25/2024 Active [...] weight Temperature SpO2 Blood Sugar Pulse Respirations 47257 8 67.00 mm[Hg] - Sitting 145.00 mm[Hg] - Sitting 98.50 Forehead Scan 96.00 % 81.00/ min 16.00/min 99256 004 00706 2 67.00 mm[Hg] - Sitting 145.00 mm[Hg] - Sitting 98.50 Tympanic 81.00/ min 16.00/min 16340 004 72339 5 56.00 mm[Hg] - Sitting 142.00 mm[Hg] - Sitting 136.40 NI 100.20 Tympanic 96.00 % 92.00/ min 18.00/min 02966 004 94261 6 90700 004 99888 4 143.00 mg/dL 004 05924 0 97.80 Tympanic 87016 005 06162 7 60.00 mm[Hg] - Sitting 140.00 mm[Hg] - Sitting 98.00 Tympanic 84.00/ min 18.00/min 49819 005 55689 0 63.00 mm[Hg] - Sitting 141.00 mm[Hg] - Sitting 98.20 Tympanic 92.00 % 63.00/ min 16.00/min 69217 005 64312 8 69.00 mm[Hg] - Sitting 106.00 mm[Hg] - Sitting 97.20 Tympanic 55537 005 39917 7 69.00/ min 16.00/min 65815 005 83905 3 69.00 mm[Hg] - Sitting 106.00 mm[Hg] - Sitting 98.20 Tympanic 69.00/ min 16.00/min 66991 005 77927 1 367.00 mg/dL 73464 005 26800 2 97.20 Tympanic 05821 005 02258 4 97.20 Tympanic 48845 005 16395 0 69.00 mm[Hg] - Sitting 106.00 mm[Hg] - Sitting 69.00/ min 01525 005 09471 3 452.00 mg/dL 19515 005 02142 3 452.00 mg/dL 48035 005 04353 5 352.00 mg/dL 89168 005 27374 3 352.00 mg/dL 32795 005 50116 7 98.20 Tympanic 95493 005 34584 3 101.00 mg/dL 48497 005 8 101.00 mg/dL 39543 006 78705 4 66.00 mm[Hg] - Sitting 107.00 mm[Hg] - Sitting 98.00 Tympanic 66.00/ min 18.00/min 50168 006 69906 0 62.00 mm[Hg] - Sitting 162.00 mm[Hg] - Sitting 98.20 Tympanic 96.00 % 60.00/ min 16.00/min 15145 006 00083 4 62.00 mm[Hg] - Sitting 162.00 mm[Hg] - Sitting 98.00 Tympanic 70.00/ min 18.00/min 25958 006 25626 8 62.00 mm[Hg] - Sitting 162.00 mm[Hg] - Sitting 98.20 Tympanic 70.00/ min 18.00/min 81309 006 32216 2 66.00 mm[Hg] - Sitting 132.00 mm[Hg] - Sitting 98.60 Tympanic 74.00/ min 16.00/min 53609 006 05946 5 159.00 mg/dL 16837 006 52855 1 159.00 mg/dL 19164 006 48671 8 98.00 Tympanic 23828 006 04629 2 62.00 mm[Hg] - Sitting 162.00 mm[Hg] - Sitting 70.00/ min 91621 006 51205 7 264.00 mg/dL 65253 006 80644 7 264.00 mg/dL 96223 006 84673 4 196.00 mg/dL 22560 006 16300 3 98.20 Tympanic 05034 006 01573 6 271.00 mg/dL 66186 007 80129 3 97.20 Tympanic 02326 007 45029 2 63.00 mm[Hg] - Sitting 132.00 mm[Hg] - Sitting 98.50 Tympanic 94.00 % 66.00/ min 16.00/min 63180 007 93885 5 188.00 mg/dL 52866 007 41872 2 188.00 mg/dL 39530 007 36077 2 188.00 mg/dL 71411 007 57548 7 97.20 Tympanic 42992 007 39636 6 97.20 Tympanic 01263 007 48236 5 67.00 mm[Hg] - Sitting 152.00 mm[Hg] - Sitting 68.00/ min 83215 007 36701 0 141.00 mg/dL 28428 007 48786 3 141.00 mg/dL 07280 007 57128 1 366.00 mg/dL 64028 007 64498 7 366.00 mg/dL 03279 007 92676 7 98.00 Tympanic 97065 007 04450 6 324.00 mg/dL 08142 007 43285 3 98.00 Tympanic 64781 007 74370 7 324.00 mg/dL 05671 008 31698 0 98.00 Tympanic 07819 008 77576 2 97.90 Tympanic 58354 008 43422 0 98.20 Tympanic 98498 008 78312 0 73.00 mm[Hg] - Sitting 156.00 mm[Hg] - Sitting 98.60 Tympanic 99.00 % 66.00/ min 20.00/min 03174 008 76460 5 137.00 mg/dL 61982 008 57122 7 137.00 mg/dL 01323 008 29163 2 97.90 Tympanic 12953 008 18011 1 137.00 mg/dL 89328 008 40375 8 97.90 Tympanic 10469 008 26407 5 67.00 mm[Hg] - Sitting 124.00 /min 21427 008 75273 6 212.00 mg/dL 00909 008 35772 6 212.00 mg/dL 08689 008 82753 9 317.00 mg/dL 47434 008 38124 4 317.00 mg/dL 23447 008 18886 8 252.00 mg/dL 85681 008 58400 0 98.70 Tympanic 27493 008 74895 7 252.00 mg/dL 85533 008 15245 3 98.70 Tympanic 81956 009 86768 9 98.70 Tympanic 71489 009 28192 3 98.20 Tympanic 79545 009 83478 5 98.40 Tympanic 37117 009 96145 5 57.00 mm[Hg] - Sitting 129.00 mm[Hg] - Sitting 98.30 Tympanic 97.00 % 65.00/ min 18.00/min 06885 009 89768 1 255.00 mg/dL 19840 009 16110 4 255.00 mg/dL 86889 009 83406 5 98.20 Tympanic 59203 009 95474 0 255.00 mg/dL 03122 009 60863 0 98.20 Tympanic 56961 009 62835 4 63.00 mm[Hg] - Lying Down 102.00 mm[Hg] - Lying Down 58.00/ min 20634 009 56875 0 167.00 mg/dL 41321 009 57431 1 167.00 mg/dL 64411 009 41706 2 164.00 mg/dL 28739 009 09988 1 164.00 mg/dL 66506 009 45931 5 208.00 mg/dL 81747 010 11595 3 98.40 Tympanic 19391 010 26483 5 98.40 Tympanic 34107 010 90802 7 66 [place] 85262 010 63032 4 60.00 mm[Hg] - Sitting 143.00 mm[Hg] - Sitting 98.90 Tympanic 98.00 % 67.00/ min 18.00/min 31372 010 27559 2 214.00 mg/dL 07587 010 71046 0 214.00 mg/dL 53018 010 02932 7 214.00 mg/dL 15452 010 37138 6 64.00 mm[Hg] - Sitting 110.00 mm[Hg] - Sitting 72.00/ min 06483 010 85929 7 98.40 Tympanic 92262 010 62427 1 212.00 mg/dL 54492 010 78764 2 212.00 mg/dL 40245 010 37144 1 115.00 mg/dL 47723 010 47005 0 115.00 mg/dL 11588 010 42093 4 98.50 Tympanic 75696 010 47808 4 150.00 mg/dL 51028 010 40293 0 150.00 mg/dL 91320 011 61704 9 98.60 Tympanic 63077 011 24309 1 67.00 mm[Hg] - Sitting 144.00 mm[Hg] - Sitting 98.20 Tympanic 98.00 % 61.00/ min 18.00/min 59401 011 91297 7 290.00 mg/dL 25831 011 26535 2 290.00 mg/dL 96048 011 05557 2 290.00 mg/dL 95501 011 63694 7 54.00 mm[Hg] - Sitting 136.00 mm[Hg] - Sitting 101.00 /min 78273 011 76275 7 98.60 Tympanic 39905 011 98080 5 240.00 mg/dL 40347 011 26672 1 240.00 mg/dL 62303 011 94212 1 156.00 mg/dL 12262 011 62918 9 156.00 mg/dL 50292 011 44624 0 97.80 Tympanic 90692 011 91129 8 343.00 mg/dL 14153 012 11911 9 97.90 Tympanic 38914 012 08415 2 466.00 mg/dL 03256 012 57347 1 466.00 mg/dL 94601 012 67990 3 466.00 mg/dL 89873 012 13520 8 97.90 Tympanic 49893 012 18052 8 56.00 mm[Hg] - Sitting 96.00 mm[Hg] - Sitting 61.00/ min 16422 012 05505 7 350.00 mg/dL 03128 012 18336 5 350.00 mg/dL 18777 012 31029 6 111.00 mg/dL 17070 012 15506 0 111.00 mg/dL 78395 012 03680 5 98.40 Tympanic 79069 012 68314 6 114.00 mg/dL 78054 013 22900 4 74.00 mm[Hg] - Sitting 112.00 mm[Hg] - Sitting 98.40 Tympanic 70.00/ min 18.00/min 80336 013 10101 8 244.00 mg/dL 43473 013 18919 7 244.00 mg/dL 27244 013 10200 1 244.00 mg/dL 15866 013 69485 1 98.20 Tympanic 99993 013 64173 7 72.00 mm[Hg] - Sitting 119.00 mm[Hg] - Sitting 76.00/ min 02809 013 59639 7 253.00 mg/dL 06550 013 03079 4 253.00 mg/dL 74729 013 03869 9 156.00 mg/dL 40808 013 85758 5 156.00 mg/dL 51172 013 69669 4 97.90 Tympanic 10076 013 02713 5 189.00 mg/dL 09624 014 00687 9 98.10 Tympanic 24966 014 28998 0 61.00 mm[Hg] - Sitting 139.00 mm[Hg] - Sitting 98.20 Forehead Scan 99.00 % 66.00/ min 18.00/min 12487 014 13891 3 169.00 mg/dL 01029 014 80691 3 98.10 Tympanic 73846 014 50286 3 75.00 mm[Hg] - Sitting 121.00 mm[Hg] - Sitting 71.00/ min 43231 014 75599 9 221.00 mg/dL 53637 014 38989 9 62.00 mg/dL 11104 014 16572 5 62.00 mg/dL 89977 014 21696 8 156.00 mg/dL 52858 014 17431 6 98.10 Tympanic 86353 014 31427 7 156.00 mg/dL 30839 015 44141 4 52671 015 48648 7 62.00 mm[Hg] - Sitting 142.00 mm[Hg] - Sitting 98.20 Tympanic 99.00 % 67.00/ min 18.00/min 84023 015 62098 9 120.00 mg/dL 55370 015 62204 7 98.00 Tympanic 92703 015 14067 2 82.00 mm[Hg] - Sitting 119.00 /min 69487 015 73215 9 110.00 mg/dL 22366 015 54165 6 104.00 mg/dL 82359 015 95586 0 100.00 mg/dL 39082 015 03758 2 98.10 Tympanic 60938 015 57510 6 100.00 mg/dL 20491 016 22773 2 67.00 mm[Hg] - Sitting 147.00 mm[Hg] - Sitting 99.00 Tympanic 99.00 % 78.00/ min 20.00/min 95537 016 48818 5 158.00 mg/dL 68687 016 70006 1 158.00 mg/dL 20945 016 62606 2 158.00 mg/dL 21688 016 88053 0 66.00 mm[Hg] - Sitting 121.00 mm[Hg] - Sitting 74.00/ min 70809 016 88728 1 97.00 mg/dL 36245 016 66561 5 97.00 mg/dL 59833 016 14807 4 78.00 mg/dL 27285 016 37232 6 78.00 mg/dL 79366 016 86625 5 248.00 mg/dL 11906 016 27116 8 248.00 mg/dL 22470 017 63653 3 54.00 mm[Hg] - Sitting 142.00 mm[Hg] - Sitting 98.30 Tympanic 99.00 % 76.00/ min 18.00/min 98921 017 63384 4 267.00 mg/dL 70662 017 12879 6 73.00 mm[Hg] - Sitting 109.00 mm[Hg] - Sitting 70.00/ min 60618 017 75360 1 184.00 mg/dL 75305 017 60649 5 184.00 mg/dL 36607 017 56227 9 248.00 mg/dL 46798 017 83320 8 299.00 mg/dL 04305 017 37373 3 299.00 mg/dL 98238 018 58055 7 50.00 mm[Hg] - Sitting 125.00 mm[Hg] - Sitting 98.30 Tympanic 98.00 % 76.00/ min 16.00/min 33864 018 28008 3 168.00 mg/dL 54133 018 97674 0 75.00 mm[Hg] - Sitting 121.00 mm[Hg] - Sitting 70.00/ min 99442 018 81433 7 264.00 mg/dL 32565 018 21943 6 132.00 mg/dL 10228 018 81336 6 154.00 mg/dL 12410 018 89660 6 154.00 mg/dL 99273 019 23432 4 63.00 mm[Hg] - Sitting 147.00 mm[Hg] - Sitting 98.50 Tympanic 99.00 % 69.00/ min 18.00/min 34462 019 79061 9 159.00 mg/dL 59583 019 24860 8 73.00 mm[Hg] - Sitting 110.00 mm[Hg] - Sitting 72.00/ min 95396 019 02073 4 191.00 mg/dL 99884 019 82417 8 70.00 mg/dL 30126 019 41668 4 70.00 mg/dL 51752 019 26603 6 198.00 mg/dL 85771 019 16882 0 198.00 mg/dL 35901 020 06224 2 59.00 mm[Hg] - Sitting 131.00 mm[Hg] - Sitting 98.90 Tympanic 99.00 % 69.00/ min 18.00/min 39127 020 32907 7 299.00 mg/dL 10554 020 55024 0 62.00 mm[Hg] - Sitting 132.00 mm[Hg] - Sitting 68.00/ min 85491 020 50401 3 299.00 mg/dL 01577 020 39115 3 299.00 mg/dL 66153 020 31902 9 220.00 mg/dL 35756 020 29217 1 220.00 mg/dL 74834 020 01275 1 270.00 mg/dL 91215 020 22640 4 270.00 mg/dL 98096 020 27309 9 143.00 mg/dL 40630 020 66445 4 143.00 mg/dL 78013 021 91056 0 59.00 mm[Hg] - Sitting 121.00 mm[Hg] - Sitting 98.40 Forehead Scan 98.00 % 70.00/ min 16.00/min 68146 021 00313 0 140.00 mg/dL 03126 021 02902 0 67.00 mm[Hg] - Sitting 130.00 mm[Hg] - Sitting 68.00/ min 14478 021 54157 8 140.00 mg/dL 85414 021 09235 6 140.00 mg/dL 34317 021 49747 8 156.00 mg/dL 49280 021 43227 1 156.00 mg/dL 78582 021 91592 5 146.00 mg/dL 30194 021 83309 4 146.00 mg/dL 26699 021 52480 5 183.00 mg/dL 84951 021 01225 2 183.00 mg/dL 15600 022 49987 3 13968 022 71150 1 43.00 mm[Hg] - Sitting 113.00 mm[Hg] - Sitting 97.80 Tympanic 97.00 % 64.00/ min 18.00/min 55454 022 05159 6 270.00 mg/dL 14064 022 27352 5 68.00 mm[Hg] - Sitting 122.00 mm[Hg] - Sitting 67.00/ min 20861 022 92787 9 270.00 mg/dL 06252 022 22039 4 270.00 mg/dL 25167 022 41522 4 207.00 mg/dL 21944 022 74740 8 207.00 mg/dL 93182 022 00153 9 217.00 mg/dL 65981 022 10069 2 217.00 mg/dL 57553 022 98792 0 192.00 mg/dL 60532 022 81499 9 192.00 mg/dL 09476 023 98252 8 48.00 mm[Hg] - Sitting 116.00 mm[Hg] - Sitting 98.50 Tympanic 97.00 % 63.00/ min 18.00/min 28501 023 34869 9 68.00 mm[Hg] - Sitting 131.00 mm[Hg] - Sitting 68.00/ min 02043 023 00882 8 235.00 mg/dL 67377 023 37172 4 235.00 mg/dL 55101 023 05875 0 235.00 mg/dL 91071 023 08389 0 199.00 mg/dL 81589 023 45855 7 199.00 mg/dL 77725 023 68330 4 233.00 mg/dL 80891 023 23400 3 233.00 mg/dL 31758 023 65921 6 229.00 mg/dL 37114 023 34963 4 229.00 mg/dL 90745 024 96825 3 58.00 mm[Hg] - Sitting 102.00 mm[Hg] - Sitting 58.00/ min 53397 024 62450 9 156.00 mg/dL 97313 024 57543 4 156.00 mg/dL 37412 024 75884 3 156.00 mg/dL 98332 024 35854 0 343.00 mg/dL 86191 024 69836 6 343.00 mg/dL 24392 024 16647 2 167.00 mg/dL 72056 024 26313 0 167.00 mg/dL 15068 024 03683 8 155.00 mg/dL 33622 024 17441 7 155.00 mg/dL 53530 025 80823 0 51.00 mm[Hg] - Lying Down 109.00 mm[Hg] - Lying Down 98.60 Tympanic 95.00 % 67.00/ min 20.00/min 69864 025 50961 0 60.00 mm[Hg] - Sitting 118.00 mm[Hg] - Sitting 98.30 Forehead Scan 98.00 % 68.00/ min 16.00/min 86847 025 42392 3 235.00 mg/dL 08172 025 41257 1 63.00 mm[Hg] - Sitting 110.00 mm[Hg] - Sitting 75.00/ min 42950 025 66656 9 295.00 mg/dL 89879 025 26570 4 94.00 mg/dL 16152 025 48980 1 132.00 mg/dL 84898 025 96017 2 132.00 mg/dL 24217 026 90288 8 50.00 mm[Hg] - Sitting 123.00 mm[Hg] - Sitting 98.50 Tympanic 95.00 % 66.00/ min 18.00/min 43155 026 91406 0 275.00 mg/dL 87639 026 25580 7 275.00 mg/dL 17211 026 07481 1 275.00 mg/dL 46721 026 66252 6 67.00 mm[Hg] - Sitting 123.00 mm[Hg] - Sitting 66.00/ min 57534 026 37419 3 187.00 mg/dL 84114 026 25861 5 187.00 mg/dL 11741 026 04816 0 167.00 mg/dL 48452 026 20475 8 167.00 mg/dL 16311 026 49828 6 387.00 mg/dL 54264 027 73974 7 53.00 mm[Hg] - Sitting 132.00 mm[Hg] - Sitting 98.60 Tympanic 97.00 % 64.00/ min 18.00/min 47872 027 76659 9 189.00 mg/dL 24920 027 68376 4 67.00 mm[Hg] - Sitting 118.00 mm[Hg] - Sitting 66.00/ min 48224 027 32016 2 189.00 mg/dL 12977 027 58932 7 189.00 mg/dL 73341 027 46873 1 105.00 mg/dL 20449 027 10589 8 105.00 mg/dL 28762 027 85064 4 223.00 mg/dL 12480 027 97329 9 223.00 mg/dL 91033 027 37159 9 164.00 mg/dL 79640 028 28189 0 68.00 mm[Hg] - Sitting 115.00 mm[Hg] - Sitting 98.60 Forehead Scan 96.00 % 71.00/ min 16.00/min 68650 028 94135 1 200.00 mg/dL 79575 028 89156 9 200.00 mg/dL 52119 028 74903 1 69.00 mm[Hg] - Sitting 122.00 mm[Hg] - Sitting 67.00/ min 65624 028 17568 3 200.00 mg/dL 25638 028 14357 0 117.00 mg/dL 84215 028 85742 0 117.00 mg/dL 96720 028 16951 1 114.00 mg/dL 92525 028 46208 7 114.00 mg/dL 26357 028 04980 0 179.00 mg/dL 21005 028 48572 8 179.00 mg/dL 69549 029 72908 4 44.00 mm[Hg] - Sitting 121.00 mm[Hg] - Sitting 98.30 Tympanic 97.00 % 65.00/ min 18.00/min 59485 029 88145 9 147.00 mg/dL 67612 029 81286 0 147.00 mg/dL 13508 029 36410 4 147.00 mg/dL 51319 029 19453 1 63.00 mm[Hg] - Sitting 118.00 mm[Hg] - Sitting 74.00/ min 71440 029 97420 2 278.00 mg/dL 99709 029 55743 3 278.00 mg/dL 56326 029 02837 1 241.00 mg/dL 02460 029 25686 8 99307 029 46425 1 504.00 mg/dL 52315 030 99707 0 54.00 mm[Hg] - Sitting 122.00 mm[Hg] - Sitting 98.40 Tympanic 98.00 % 70.00/ min 18.00/min 03818 030 37733 4 242.00 mg/dL 33019 030 95687 8 68.00 mm[Hg] - Sitting 121.00 mm[Hg] - Sitting 68.00/ min 08946 030 74064 2 242.00 mg/dL 67364 030 55138 3 170.00 mg/dL 38234 030 18290 0 170.00 mg/dL 56721 030 62427 4 200.00 mg/dL 90552 030 89459 7 200.00 mg/dL 80741 030 91643 3 131.00 mg/dL 62315 030 77427 5 131.00 mg/dL Immunizations Vaccine Date Status COVID-19 09/20/2023 Completed Influenza 09/14/2024 Completed Other 10/08/2023 Completed Shingles 05/27/2011 Completed Tetanus 04/13/2022 Completed TDaP 04/13/2022 Completed Shingles 2 10/05/2018 Completed
--- OUTSIDE RECORDS SUMMARY | 2024-10-03 10:53 | External Medical Summary | Continuity Of Care Document ---
Author Name Unknown Address [address] [address] Organization [facility] () Care Team Providers Care Business Management Professor Name Role Phone DO Machado Amy Primary Care Provider [phone] Allergies Allergy Reaction Start Date End Date [...] 3 0.1 mL 08/29 Inactiv e 2023 68865 26960 0 1 time Intrad ermal False Tubersol 5 tub. unit/0.1 mL intradermal injection solution [Tuberculin PPD] 0.1mL Intradermal 1 time For PPD 2nd Step Give 2nd Step PPD Day 1 and Read results Day 3 (schedule 7 days after 1st READ) 0.1mL 09/08 Inactiv e 2023 59202 77586 0 1 time Intrad ermal False [facility] - Nurse initials indicate verificatio n that [id number] vaccine was administere d by [facility] [...] order For Diabetes 08/25 Inactiv e 2023 95419 58979 9 4 times a day Subcut aneous False Aspirin 325 mg tablet [generic] 325 By Mouth Twice daily For Anticoagulati on 325 09/25 Active 2023 22604 25708 1 Twice daily By Mouth False Ferrous sulfate 325 mg (65 mg iron) tablet [generic] 325 By Mouth Once daily For anemia 325 2023 Active 2023 22018 88795 5 Once daily By Mouth False Linezolid 600 mg tablet [generic] 600 mg By Mouth Every 12 hours For MRSA INFECTION L BKA 600 mg 08/25 Inactiv e 2023 11364 44676 1 Every 12 hours By Mouth False Cefpodoxime 200 mg tablet [generic] 400 mg By Mouth Twice daily For MRSA INFECTION L BKA 400 mg 08/25 Inactiv e 2023 22704 75051 0 Twice daily By Mouth False Coenzyme Q10 100 mg tablet [generic] 100 mg By Mouth Once daily For SUPP 100 mg 2023 Active 2023 76947 13329 0 Once daily By Mouth False Levothyroxi ne 50 mcg tablet [generic] 50mcg By Mouth Once daily For hypothyroidis m 50mcg 2023 Active 2023 62078 40127 0 Once daily By Mouth False One A Day Men Complete 240 mcg-25 mcg-300 mcg tablet 1 tab By Mouth Once daily For supplement 1 tab 2023 Active 2023 73998 79699 1 Once daily By Mouth False Cholecalcif adalberto (vitamin D3) 50 mcg (2,000 unit) tablet [generic] 1 TAB By Mouth Once daily For SUPP 1 TAB 2023 Active 2023 89912 53651 1 Once daily By Mouth False Cetirizine 10 mg tablet [generic] 1 TAB By Mouth At bedtime For Allergies 1 TAB 2023 Active 2023 23160 14137 0 At bedtime By Mouth False Timolol maleate 0.25 % eye drops [generic] 1 drop Both Eyes Twice daily For glaucoma 1 drop 2023 Active 2023 90940 60967 5 Twice daily Both Eyes False Alendronate 35 mg tablet [generic] 35mg By Mouth Every week For SIADH 35mg 08/31 Inactiv e 2023 08130 76525 5 Every week By Mouth False Lantus Solostar U-100 Insulin 100 unit/mL (3 mL) subcutaneou s pen 18 units Subcutaneous Every morning For DIABETES 18 units 08/25 Inactiv e 2023 42768 83565 0 Every morning Subcut aneous False Lantus Solostar U-100 Insulin 100 unit/mL (3 mL) subcutaneou s pen 18 units Subcutaneous Every morning For DIABETES 18 units 2023 Active 2023 09793 46325 0 Every morning Subcut aneous False Linezolid 600 mg tablet [generic] 600 mg By Mouth Every 12 hours For MRSA INFECTION L BKA 600 mg 08/28 Inactiv e 2023 14809 98756 1 Every 12 hours By Mouth False [...] order For Diabetes 08/31 Inactiv e 2023 39150 43655 9 4 times a day Subcut aneous False Cefpodoxime 200 mg tablet [generic] 400 mg By Mouth Twice daily For MRSA INFECTION L BKA 400 mg 08/28 Inactiv e 2023 91502 31258 0 Twice daily By Mouth False Brimonidine 0.1 % eye drops [generic] 1 drop Both Eyes Twice daily For glaucoma 1 drop 2023 Active 2023 99043 26064 0 Twice daily Both Eyes False Metoprolol succinate ER 50 mg tablet,exte nded release 24 hr [generic] 50 mg By Mouth Once daily HOLD FOR SBP <100, or pulse <60 For HTN 50 mg 2023 Active 2023 36335 49104 1 Once daily By Mouth False Amlodipine 2.5 mg tablet [generic] 2.5 mg By Mouth Once daily For HTN 2.5 mg 2023 Active 2023 86324 83242 5 Once daily By Mouth False Docusate sodium 100 mg capsule [generic] 100mg By Mouth Twice daily as needed For constipation HOLD FOR LOOSE STOOLS 100mg 2023 Active 2023 07407 77030 1 Twice daily as needed By Mouth False Atorvastati n 40 mg tablet [generic] 40mg By Mouth Once daily For HDL 40mg 08/26 Inactiv e 2023 49888 63841 5 Once daily By Mouth False Tylenol 325 mg tablet 2 tabs By Mouth Every 4 hours as needed For Pain DO NOT EXCEED 3000 MG APAP/24 Hours 2 tabs 2023 Active 2023 63603 54043 0 Every 4 hours as needed By Mouth False Tylenol 325 mg tablet 2 tabs By Mouth Every 4 hours as needed For Fever >100 DO NOT EXCEED 3000 MG APAP/24 Hours 2 tabs 2023 Active 2023 96390 84741 0 Every 4 hours as needed By Mouth False Dulcolax (bisacodyl) 10 mg rectal suppository One Suppository per rectum PRN if Milk of Magnisia ineffective. Give on day 5 of no BM 1 sup 2023 Active 2023 59391 93962 1 Daily as needed Rectal False Fleet Enema 19 gram-7 gram/118 mL Administer per rectum PRN one time if dulcolax suppository not effective. Give on day 6 of no BM 1 2023 Active 2023 15537 35279 6 Daily as needed Rectal False Dextrose 50 % in water (D50W) intravenous solution [generic] Dextrose 50% evonne 20-50 ml (slow push) Intravenous if Glucagon not effective after 15 minutes. CALL 911 for ED Evaluation. 50% evonne 2023 Active 2023 52297 42593 9 Intrav enous False Glucagon (HCl) Emergency Kit 1 mg solution for injection Administer Glucagon 1 mg Intramuscular if 15 minutes after GLucose Gel is administered Glucose remains less than 70 1 mg 2023 Active 2023 31659 37181 2 Intram uscula r False Glucose Gel 40 % oral gel [Dextrose] PRN If resident is unable to swallow (with or without symptoms) and Glucose results less than 70 give GLucose 40% Gel 1 tube orally - Recheck Glucose 15 minutes after administratio n. 1 tube 2023 Active 2023 67536 04349 8 By Mouth False Milk of Magnesia 400 mg/5 mL oral suspension [Magnesium hydroxide] PRN 30ml By Mouth Daily as needed for constipation one time daily if no BM, on day 4 of no BM (PRN refer to instructions) For Constipation 30 mL 2023 Active 2023 19094 49003 6 Daily as needed By Mouth False Atorvastati n 40 mg tablet [generic] 08/26 Inactiv e 2023 94720 83888 5 Atorvastati n 40 mg tablet [generic] 40mg By Mouth Once daily For HDL 40mg 2023 Active 2023 92584 80726 5 Once daily By Mouth False Insulin aspart (U-100) 100 unit/mL (3 mL) subcutaneou s pen [generic] 15 units Subcutaneous 1 time For dm 15 units 08/26 Inactiv e 2023 31826 33208 5 1 time Subcut aneous False Humalog KwikPen (U-100) Insulin 100 unit/mL subcutaneou s 15 units Subcutaneous 1 time For dm 15 units 08/27 Inactiv e 2023 05256 75006 9 1 time Subcut aneous False Linezolid 600 mg tablet [generic] 600 mg By Mouth Every 12 hours For MRSA INFECTION L BKA 600 mg 09/06 Inactiv e 2023 97109 05335 1 Every 12 hours By Mouth False Cefpodoxime 200 mg tablet [generic] 400 mg By Mouth Twice daily For MRSA INFECTION L BKA 400 mg 08/31 Inactiv e 2023 29217 47421 0 Twice daily By Mouth False Senna 8.6 mg tablet 8.6 mg By Mouth Once daily For Constipation 8.6 mg 09/07 Inactiv e 2023 27001 47241 1 Once daily By Mouth False Humalog [...] . Per Carb 09/19 Inactiv e 2023 90109 42493 9 4 times a day Subcut aneous False Alendronate 35 mg tablet [generic] 08/31 Inactiv e 2023 09302 36560 5 Alendronate 35 mg tablet [generic] 35mg By Mouth Every week For Osteoporosis 35mg 09/21 Inactiv e 2023 75725 12680 5 Every week By Mouth False ProSource 10 gram-100 kcal/30 mL oral liquid 30 ml By Mouth Once daily For wound healing 30 ml 2023 Active 2023 78695 39261 2 Once daily By Mouth False Clotrimazol e 1 % topical cream [generic] 1 applicaiton Topical Twice daily For tinea, apply to groin rash after cleansing and throughouly drying. Can discontinue order 3 days after rash resolves. 1 applica stacy 09/08 Inactiv e 2023 68532 36538 0 Twice daily Topica l False MAGIC MIX 1:1:1:1 : ZINC OXIDE EXTERNAL OINTMENT 40%; HYDROCOTISO NE EXTERNAL CREAM 1%; NYSTATIN EXTERNAL CREAM 547370G/GM; SILVADENE CREAM 1% Every shift Apply topically to MASD area on coccyx/buttoc ks each shift and as needed for incontinence care For MASD on coccyx layer 2023 Active 2023 Every shift Topica l False Senna 8.6 mg tablet 8.6 mg By Mouth Once daily For Constipation 8.6 mg 09/07 Inactiv e 2023 75001 60190 1 Once daily By Mouth False Senna 8.6 mg tablet 8.6 mg By Mouth Once daily As Needed For Constipation 8.6 mg 2023 Active 2023 22450 72408 1 Once daily By Mouth False BD AutoShield Duo Pen Needle 30 gauge x 3/16in 1 pen needle Subcutaneous 4 times a day For DM 1 pen needle 202300 Active 2023 64707 92497 5 4 times a day Subcut aneous False Hydrocortis one 1 % topical ointment [generic] 1 application Topical Twice daily For tinea *mix 1:1 with clotrimazole cream and apply to clean/dry groin rash 1 applica peggy 09/19 Inactiv e 2023 64523 85422 6 Twice daily Topica l False Clotrimazol e 1 % topical cream [generic] 1 applicaiton Topical Twice daily For tinea, apply to groin rash after cleansing and throughouly drying. MIX WITH HYDROCORTISON E Can discontinue order 3 days after rash resolves. 1 applica stacy 2023 Active 2023 90850 05467 0 Twice daily Topica l False Humalog KwikPen (U-100) Insulin 100 unit/mL subcutaneou s 09/19 Inactiv e 2023 58802 12635 9 Humalog KwikPen (U-100) Insulin 100 unit/mL [...] abnormalities . Per Carb 2023 Active 2023 36617 46470 9 4 times a day Subcut aneous False Humalog KwikPen (U-100) Insulin 100 unit/mL subcutaneou s 10 units Subcutaneous 1 time For DM 10 units 09/20 Inactiv e 2023 42923 80716 9 1 time Subcut aneous False Alendronate 35 mg tablet [generic] 09/21 Inactiv e 2023 72527 65679 5 Alendronate 35 mg tablet [generic] 35mg By Mouth Every week For Osteoporosis take with a full glass of water on an empty stomach no other food or medication remain upright do not crush 35mg 2023 Active 2023 92009 87854 5 Every week By Mouth False Humalog KwikPen (U-100) Insulin 100 unit/mL subcutaneou s 08/31 Inactiv e 2023 65540 92960 9 MediHoney HCS 4 1/2in X 4 1/2in bandage Cleanse area with NSS, apply one medihoney hydrocolloid dressing, non adherent dressing, kerlix secure with paper tape daily. For wound stage III 1 09/19 Inactiv e 2023 91486 67901 1 Once daily Topica l False Betadine 10 % topical solution wound care cleanse withnormal saline, apply gauze soaked in betadine, leave on 5 minutes pat dry leave open to air 1 2023 Active 2023 49575 75449 1 Once daily Topica l False Problems Code Description Start Date End Date Status D64.9 Anemia, unspecified 08/25/2024 Activ e I25.10 Atherosclerotic hear t disease of [place] coronary artery without angina pectoris 08/25/2024 Active [...] weight Temperature SpO2 Blood Sugar Pulse Respirations 20139 8 67.00 mm[Hg] - Sitting 145.00 mm[Hg] - Sitting 98.50 Forehead Scan 96.00 % 81.00/ min 16.00/min 80284 004 74607 2 67.00 mm[Hg] - Sitting 145.00 mm[Hg] - Sitting 98.50 Tympanic 81.00/ min 16.00/min 74859 004 42213 5 56.00 mm[Hg] - Sitting 142.00 mm[Hg] - Sitting 136.40 NI 100.20 Tympanic 96.00 % 92.00/ min 18.00/min 07324 004 36060 6 46072 004 25517 4 143.00 mg/dL 004 61497 0 97.80 Tympanic 86829 005 58960 7 60.00 mm[Hg] - Sitting 140.00 mm[Hg] - Sitting 98.00 Tympanic 84.00/ min 18.00/min 67816 005 75382 0 63.00 mm[Hg] - Sitting 141.00 mm[Hg] - Sitting 98.20 Tympanic 92.00 % 63.00/ min 16.00/min 20705 005 48048 8 69.00 mm[Hg] - Sitting 106.00 mm[Hg] - Sitting 97.20 Tympanic 95408 005 53004 7 69.00/ min 16.00/min 19217 005 89492 3 69.00 mm[Hg] - Sitting 106.00 mm[Hg] - Sitting 98.20 Tympanic 69.00/ min 16.00/min 48225 005 93274 1 367.00 mg/dL 00436 005 45933 2 97.20 Tympanic 79017 005 99932 4 97.20 Tympanic 74065 005 24036 0 69.00 mm[Hg] - Sitting 106.00 mm[Hg] - Sitting 69.00/ min 96795 005 30277 3 452.00 mg/dL 51804 005 00400 3 452.00 mg/dL 19778 005 90339 5 352.00 mg/dL 88843 005 48725 3 352.00 mg/dL 69639 005 34408 7 98.20 Tympanic 05322 005 32785 3 101.00 mg/dL 05347 005 8 101.00 mg/dL 07136 006 07527 4 66.00 mm[Hg] - Sitting 107.00 mm[Hg] - Sitting 98.00 Tympanic 66.00/ min 18.00/min 12751 006 01222 0 62.00 mm[Hg] - Sitting 162.00 mm[Hg] - Sitting 98.20 Tympanic 96.00 % 60.00/ min 16.00/min 11567 006 99430 4 62.00 mm[Hg] - Sitting 162.00 mm[Hg] - Sitting 98.00 Tympanic 70.00/ min 18.00/min 60684 006 85262 8 62.00 mm[Hg] - Sitting 162.00 mm[Hg] - Sitting 98.20 Tympanic 70.00/ min 18.00/min 59903 006 55393 2 66.00 mm[Hg] - Sitting 132.00 mm[Hg] - Sitting 98.60 Tympanic 74.00/ min 16.00/min 76100 006 73792 5 159.00 mg/dL 93426 006 60704 1 159.00 mg/dL 49244 006 50937 8 98.00 Tympanic 39847 006 13470 2 62.00 mm[Hg] - Sitting 162.00 mm[Hg] - Sitting 70.00/ min 66572 006 12880 7 264.00 mg/dL 50902 006 70695 7 264.00 mg/dL 10846 006 35692 4 196.00 mg/dL 09435 006 15026 3 98.20 Tympanic 92576 006 68830 6 271.00 mg/dL 20198 007 22276 3 97.20 Tympanic 37878 007 76370 2 63.00 mm[Hg] - Sitting 132.00 mm[Hg] - Sitting 98.50 Tympanic 94.00 % 66.00/ min 16.00/min 44060 007 44919 5 188.00 mg/dL 99697 007 37027 2 188.00 mg/dL 43055 007 45903 2 188.00 mg/dL 38256 007 96134 7 97.20 Tympanic 68609 007 59507 6 97.20 Tympanic 26869 007 22701 5 67.00 mm[Hg] - Sitting 152.00 mm[Hg] - Sitting 68.00/ min 53036 007 31519 0 141.00 mg/dL 81839 007 75147 3 141.00 mg/dL 54231 007 36556 1 366.00 mg/dL 08860 007 46965 7 366.00 mg/dL 05521 007 47275 7 98.00 Tympanic 96601 007 50515 6 324.00 mg/dL 39273 007 17384 3 98.00 Tympanic 12923 007 47642 7 324.00 mg/dL 66376 008 94030 0 98.00 Tympanic 05448 008 10648 2 97.90 Tympanic 08369 008 50427 0 98.20 Tympanic 08122 008 87085 0 73.00 mm[Hg] - Sitting 156.00 mm[Hg] - Sitting 98.60 Tympanic 99.00 % 66.00/ min 20.00/min 15710 008 88681 5 137.00 mg/dL 29030 008 20030 7 137.00 mg/dL 85812 008 65522 2 97.90 Tympanic 21666 008 89235 1 137.00 mg/dL 75702 008 56392 8 97.90 Tympanic 07010 008 14786 5 67.00 mm[Hg] - Sitting 124.00 /min 34040 008 43901 6 212.00 mg/dL 87138 008 80505 6 212.00 mg/dL 44271 008 79117 9 317.00 mg/dL 60216 008 37237 4 317.00 mg/dL 58274 008 45055 8 252.00 mg/dL 58908 008 11925 0 98.70 Tympanic 34605 008 89358 7 252.00 mg/dL 58238 008 24814 3 98.70 Tympanic 17748 009 67539 9 98.70 Tympanic 86498 009 13089 3 98.20 Tympanic 73989 009 87811 5 98.40 Tympanic 56221 009 15338 5 57.00 mm[Hg] - Sitting 129.00 mm[Hg] - Sitting 98.30 Tympanic 97.00 % 65.00/ min 18.00/min 84127 009 98034 1 255.00 mg/dL 65771 009 33570 4 255.00 mg/dL 38739 009 80117 5 98.20 Tympanic 66756 009 37543 0 255.00 mg/dL 87200 009 86786 0 98.20 Tympanic 03878 009 08966 4 63.00 mm[Hg] - Lying Down 102.00 mm[Hg] - Lying Down 58.00/ min 87911 009 18792 0 167.00 mg/dL 34679 009 86164 1 167.00 mg/dL 49136 009 25748 2 164.00 mg/dL 01379 009 67306 1 164.00 mg/dL 96876 009 90170 5 208.00 mg/dL 42277 010 38330 3 98.40 Tympanic 64531 010 06464 5 98.40 Tympanic 95359 010 42381 7 66 NI 65513 010 56414 4 60.00 mm[Hg] - Sitting 143.00 mm[Hg] - Sitting 98.90 Tympanic 98.00 % 67.00/ min 18.00/min 41710 010 64226 2 214.00 mg/dL 42737 010 06456 0 214.00 mg/dL 55293 010 36029 7 214.00 mg/dL 29424 010 71845 6 64.00 mm[Hg] - Sitting 110.00 mm[Hg] - Sitting 72.00/ min 89703 010 80503 7 98.40 Tympanic 41312 010 99123 1 212.00 mg/dL 76089 010 39455 2 212.00 mg/dL 14552 010 74811 1 115.00 mg/dL 88971 010 61137 0 115.00 mg/dL 71270 010 67586 4 98.50 Tympanic 24649 010 64780 4 150.00 mg/dL 22882 010 02579 0 150.00 mg/dL 36715 011 82352 9 98.60 Tympanic 62171 011 23669 1 67.00 mm[Hg] - Sitting 144.00 mm[Hg] - Sitting 98.20 Tympanic 98.00 % 61.00/ min 18.00/min 02115 011 84131 7 290.00 mg/dL 67360 011 75090 2 290.00 mg/dL 15686 011 20811 2 290.00 mg/dL 20504 011 03098 7 54.00 mm[Hg] - Sitting 136.00 mm[Hg] - Sitting 101.00 /min 29792 011 74792 7 98.60 Tympanic 61855 011 97470 5 240.00 mg/dL 68357 011 61602 1 240.00 mg/dL 17640 011 05410 1 156.00 mg/dL 90483 011 95415 9 156.00 mg/dL 38281 011 48420 0 97.80 Tympanic 33854 011 49049 8 343.00 mg/dL 40063 012 88857 9 97.90 Tympanic 01073 012 94952 2 466.00 mg/dL 66407 012 31507 1 466.00 mg/dL 17499 012 68182 3 466.00 mg/dL 84271 012 75725 8 97.90 Tympanic 16095 012 83427 8 56.00 mm[Hg] - Sitting 96.00 mm[Hg] - Sitting 61.00/ min 93644 012 22513 7 350.00 mg/dL 77985 012 70645 5 350.00 mg/dL 20946 012 59874 6 111.00 mg/dL 31718 012 87898 0 111.00 mg/dL 84958 012 88090 5 98.40 Tympanic 93280 012 21995 6 114.00 mg/dL 63166 013 29501 4 74.00 mm[Hg] - Sitting 112.00 mm[Hg] - Sitting 98.40 Tympanic 70.00/ min 18.00/min 89236 013 69559 8 244.00 mg/dL 98950 013 77196 7 244.00 mg/dL 59651 013 81165 1 244.00 mg/dL 02882 013 19990 1 98.20 Tympanic 50532 013 15349 7 72.00 mm[Hg] - Sitting 119.00 mm[Hg] - Sitting 76.00/ min 12638 013 24092 7 253.00 mg/dL 23616 013 59819 4 253.00 mg/dL 73191 013 36840 9 156.00 mg/dL 35335 013 39972 5 156.00 mg/dL 46883 013 71128 4 97.90 Tympanic 42083 013 33079 5 189.00 mg/dL 88628 014 68842 9 98.10 Tympanic 62055 014 21770 0 61.00 mm[Hg] - Sitting 139.00 mm[Hg] - Sitting 98.20 Forehead Scan 99.00 % 66.00/ min 18.00/min 59162 014 57651 3 169.00 mg/dL 43916 014 47051 3 98.10 Tympanic 25312 014 08458 3 75.00 mm[Hg] - Sitting 121.00 mm[Hg] - Sitting 71.00/ min 65720 014 05035 9 221.00 mg/dL 87452 014 48975 9 62.00 mg/dL 79635 014 81434 5 62.00 mg/dL 05325 014 90174 8 156.00 mg/dL 14908 014 76042 6 98.10 Tympanic 32216 014 38364 7 156.00 mg/dL 41769 015 39080 4 58207 015 71213 7 62.00 mm[Hg] - Sitting 142.00 mm[Hg] - Sitting 98.20 Tympanic 99.00 % 67.00/ min 18.00/min 41262 015 42606 9 120.00 mg/dL 67370 015 46532 7 98.00 Tympanic 01258 015 68932 2 82.00 mm[Hg] - Sitting 119.00 /min 86209 015 84598 9 110.00 mg/dL 20239 015 50301 6 104.00 mg/dL 76163 015 15421 0 100.00 mg/dL 40404 015 10993 2 98.10 Tympanic 25380 015 67876 6 100.00 mg/dL 08695 016 03166 2 67.00 mm[Hg] - Sitting 147.00 mm[Hg] - Sitting 99.00 Tympanic 99.00 % 78.00/ min 20.00/min 41883 016 84739 5 158.00 mg/dL 48392 016 55103 1 158.00 mg/dL 50015 016 79325 2 158.00 mg/dL 27485 016 45474 0 66.00 mm[Hg] - Sitting 121.00 mm[Hg] - Sitting 74.00/ min 86944 016 34857 1 97.00 mg/dL 82616 016 66313 5 97.00 mg/dL 61258 016 02647 4 78.00 mg/dL 71185 016 48369 6 78.00 mg/dL 42095 016 54194 5 248.00 mg/dL 88315 016 27012 8 248.00 mg/dL 64252 017 43466 3 54.00 mm[Hg] - Sitting 142.00 mm[Hg] - Sitting 98.30 Tympanic 99.00 % 76.00/ min 18.00/min 78254 017 29237 4 267.00 mg/dL 09263 017 11215 6 73.00 mm[Hg] - Sitting 109.00 mm[Hg] - Sitting 70.00/ min 69418 017 90757 1 184.00 mg/dL 50109 017 38098 5 184.00 mg/dL 83917 017 10393 9 248.00 mg/dL 03154 017 32864 8 299.00 mg/dL 23838 017 58492 3 299.00 mg/dL 31502 018 44730 7 50.00 mm[Hg] - Sitting 125.00 mm[Hg] - Sitting 98.30 Tympanic 98.00 % 76.00/ min 16.00/min 27361 018 68836 3 168.00 mg/dL 89571 018 78282 0 75.00 mm[Hg] - Sitting 121.00 mm[Hg] - Sitting 70.00/ min 42670 018 25489 7 264.00 mg/dL 87282 018 73675 6 132.00 mg/dL 59839 018 17914 6 154.00 mg/dL 96683 018 37336 6 154.00 mg/dL 88361 019 67420 4 63.00 mm[Hg] - Sitting 147.00 mm[Hg] - Sitting 98.50 Tympanic 99.00 % 69.00/ min 18.00/min 32256 019 56050 9 159.00 mg/dL 84568 019 54007 8 73.00 mm[Hg] - Sitting 110.00 mm[Hg] - Sitting 72.00/ min 51420 019 55811 4 191.00 mg/dL 85387 019 09329 8 70.00 mg/dL 24670 019 17397 4 70.00 mg/dL 82769 019 35812 6 198.00 mg/dL 93148 019 78342 0 198.00 mg/dL 48058 020 27305 2 59.00 mm[Hg] - Sitting 131.00 mm[Hg] - Sitting 98.90 Tympanic 99.00 % 69.00/ min 18.00/min 70937 020 45110 7 299.00 mg/dL 86782 020 46048 0 62.00 mm[Hg] - Sitting 132.00 mm[Hg] - Sitting 68.00/ min 17147 020 86404 3 299.00 mg/dL 33813 020 49455 3 299.00 mg/dL 54347 020 58815 9 220.00 mg/dL 04415 020 78759 1 220.00 mg/dL 32447 020 52665 1 270.00 mg/dL 87103 020 29840 4 270.00 mg/dL 51604 020 88358 9 143.00 mg/dL 19385 020 52971 4 143.00 mg/dL 76979 021 20476 0 59.00 mm[Hg] - Sitting 121.00 mm[Hg] - Sitting 98.40 Forehead Scan 98.00 % 70.00/ min 16.00/min 02628 021 31639 0 140.00 mg/dL 21294 021 88096 0 67.00 mm[Hg] - Sitting 130.00 mm[Hg] - Sitting 68.00/ min 87252 021 90337 8 140.00 mg/dL 06264 021 34882 6 140.00 mg/dL 34385 021 30581 8 156.00 mg/dL 55251 021 03080 1 156.00 mg/dL 41685 021 74068 5 146.00 mg/dL 73695 021 70254 4 146.00 mg/dL 90745 021 76417 5 183.00 mg/dL 44234 021 34863 2 183.00 mg/dL 11667 022 50668 3 87836 022 08434 1 43.00 mm[Hg] - Sitting 113.00 mm[Hg] - Sitting 97.80 Tympanic 97.00 % 64.00/ min 18.00/min 84276 022 65661 6 270.00 mg/dL 85427 022 70559 5 68.00 mm[Hg] - Sitting 122.00 mm[Hg] - Sitting 67.00/ min 01961 022 00104 9 270.00 mg/dL 52563 022 25957 4 270.00 mg/dL 97144 022 68374 4 207.00 mg/dL 67503 022 73797 8 207.00 mg/dL 90131 022 83739 9 217.00 mg/dL 86684 022 70233 2 217.00 mg/dL 89646 022 72128 0 192.00 mg/dL 65673 022 69459 9 192.00 mg/dL 48569 023 50633 8 48.00 mm[Hg] - Sitting 116.00 mm[Hg] - Sitting 98.50 Tympanic 97.00 % 63.00/ min 18.00/min 62042 023 32376 9 68.00 mm[Hg] - Sitting 131.00 mm[Hg] - Sitting 68.00/ min 77686 023 82542 8 235.00 mg/dL 39214 023 23935 4 235.00 mg/dL 86646 023 77662 0 235.00 mg/dL 53886 023 58778 0 199.00 mg/dL 80091 023 14592 7 199.00 mg/dL 32145 023 02241 4 233.00 mg/dL 10813 023 21813 3 233.00 mg/dL 75363 023 12462 6 229.00 mg/dL 66593 023 81929 4 229.00 mg/dL 62072 024 06341 3 58.00 mm[Hg] - Sitting 102.00 mm[Hg] - Sitting 58.00/ min 63068 024 68149 9 156.00 mg/dL 48844 024 92447 4 156.00 mg/dL 47483 024 30775 3 156.00 mg/dL 20633 024 84641 0 343.00 mg/dL 18484 024 65720 6 343.00 mg/dL 35102 024 19369 2 167.00 mg/dL 29684 024 81413 0 167.00 mg/dL 81971 024 36421 8 155.00 mg/dL 25661 024 25834 7 155.00 mg/dL 93343 025 94349 0 51.00 mm[Hg] - Lying Down 109.00 mm[Hg] - Lying Down 98.60 Tympanic 95.00 % 67.00/ min 20.00/min 42837 025 78798 0 60.00 mm[Hg] - Sitting 118.00 mm[Hg] - Sitting 98.30 Forehead Scan 98.00 % 68.00/ min 16.00/min 23888 025 89597 3 235.00 mg/dL 04618 025 18162 1 63.00 mm[Hg] - Sitting 110.00 mm[Hg] - Sitting 75.00/ min 27472 025 89378 9 295.00 mg/dL 40081 025 82763 4 94.00 mg/dL 65216 025 59532 1 132.00 mg/dL 58637 025 30381 2 132.00 mg/dL 76104 026 69540 8 50.00 mm[Hg] - Sitting 123.00 mm[Hg] - Sitting 98.50 Tympanic 95.00 % 66.00/ min 18.00/min 53924 026 39322 0 275.00 mg/dL 40065 026 10677 7 275.00 mg/dL 55554 026 55892 1 275.00 mg/dL 99865 026 41913 6 67.00 mm[Hg] - Sitting 123.00 mm[Hg] - Sitting 66.00/ min 44462 026 27905 3 187.00 mg/dL 19262 026 90233 5 187.00 mg/dL 98903 026 51787 0 167.00 mg/dL 50187 026 87655 8 167.00 mg/dL 13487 026 18168 6 387.00 mg/dL 53001 027 90108 7 53.00 mm[Hg] - Sitting 132.00 mm[Hg] - Sitting 98.60 Tympanic 97.00 % 64.00/ min 18.00/min 38560 027 64987 9 189.00 mg/dL 81501 027 11028 4 67.00 mm[Hg] - Sitting 118.00 mm[Hg] - Sitting 66.00/ min 40092 027 41052 2 189.00 mg/dL 22149 027 00781 7 189.00 mg/dL 82004 027 73176 1 105.00 mg/dL 06315 027 12940 8 105.00 mg/dL 57867 027 33718 4 223.00 mg/dL 81866 027 61378 9 223.00 mg/dL 67589 027 11485 9 164.00 mg/dL 76725 028 61412 0 68.00 mm[Hg] - Sitting 115.00 mm[Hg] - Sitting 98.60 Forehead Scan 96.00 % 71.00/ min 16.00/min 79818 028 37023 1 200.00 mg/dL 72185 028 40198 9 200.00 mg/dL 84259 028 14583 1 69.00 mm[Hg] - Sitting 122.00 mm[Hg] - Sitting 67.00/ min 54519 028 45118 3 200.00 mg/dL 79253 028 84819 0 117.00 mg/dL 01528 028 73642 0 117.00 mg/dL 62475 028 78017 1 114.00 mg/dL 09434 028 79317 7 114.00 mg/dL 39927 028 83541 0 179.00 mg/dL 43217 028 19767 8 179.00 mg/dL 46793 029 71773 4 44.00 mm[Hg] - Sitting 121.00 mm[Hg] - Sitting 98.30 Tympanic 97.00 % 65.00/ min 18.00/min 41932 029 70233 9 147.00 mg/dL 99713 029 59831 0 147.00 mg/dL 83412 029 79663 4 147.00 mg/dL 68704 029 53780 1 63.00 mm[Hg] - Sitting 118.00 mm[Hg] - Sitting 74.00/ min 93085 029 86656 2 278.00 mg/dL 10142 029 64164 3 278.00 mg/dL 73779 029 33904 1 241.00 mg/dL 73653 029 54952 8 23865 029 01195 1 504.00 mg/dL 79860 030 09417 0 54.00 mm[Hg] - Sitting 122.00 mm[Hg] - Sitting 98.40 Tympanic 98.00 % 70.00/ min 18.00/min 07655 030 67601 4 242.00 mg/dL 55233 030 02947 8 68.00 mm[Hg] - Sitting 121.00 mm[Hg] - Sitting 68.00/ min 54864 030 60932 2 242.00 mg/dL 89547 030 54091 3 170.00 mg/dL 37856 030 76118 0 170.00 mg/dL 29677 030 99369 4 200.00 mg/dL 68812 030 17549 7 200.00 mg/dL 82039 030 00276 3 131.00 mg/dL 03596 030 00932 5 131.00 mg/dL Immunizations Vaccine Date Status COVID-19 09/20/2023 Completed Influenza 09/14/2024 Completed Other 10/08/2023 Completed Shingles 05/27/2011 Completed Tetanus 04/13/2022 Completed TDaP 04/13/2022 Completed Shingles 2 10/05/2018 Completed
--- OUTSIDE RECORDS SUMMARY | 2024-10-03 10:53 | External Medical Summary | Continuity Of Care Document ---
Author Name Unknown Address [address] [address] Organization [facility] () Care Team Providers Care Motorcycle Mechanic Name Role Phone DO Machado Amy Primary Care Provider [phone] Allergies Allergy Reaction Start Date End Date [...] 3 0.1 mL 08/29 Inactiv e 2023 54205 57354 0 1 time Intrad ermal False Tubersol 5 tub. unit/0.1 mL intradermal injection solution [Tuberculin PPD] 0.1mL Intradermal 1 time For PPD 2nd Step Give 2nd Step PPD Day 1 and Read results Day 3 (schedule 7 days after 1st READ) 0.1mL 09/08 Inactiv e 2023 12330 74635 0 1 time Intrad ermal False [facility] - Nurse initials indicate verificatio n that [id number] vaccine was administere d by [facility] [...] order For Diabetes 08/25 Inactiv e 2023 07533 78866 9 4 times a day Subcut aneous False Aspirin 325 mg tablet [generic] 325 By Mouth Twice daily For Anticoagulati on 325 09/25 Active 2023 39155 06513 1 Twice daily By Mouth False Ferrous sulfate 325 mg (65 mg iron) tablet [generic] 325 By Mouth Once daily For anemia 325 2023 Active 2023 06898 01563 5 Once daily By Mouth False Linezolid 600 mg tablet [generic] 600 mg By Mouth Every 12 hours For MRSA INFECTION L BKA 600 mg 08/25 Inactiv e 2023 05567 78755 1 Every 12 hours By Mouth False Cefpodoxime 200 mg tablet [generic] 400 mg By Mouth Twice daily For MRSA INFECTION L BKA 400 mg 08/25 Inactiv e 2023 81225 80498 0 Twice daily By Mouth False Coenzyme Q10 100 mg tablet [generic] 100 mg By Mouth Once daily For SUPP 100 mg 2023 Active 2023 10553 01887 0 Once daily By Mouth False Levothyroxi ne 50 mcg tablet [generic] 50mcg By Mouth Once daily For hypothyroidis m 50mcg 2023 Active 2023 30585 02421 0 Once daily By Mouth False One A Day Men Complete 240 mcg-25 mcg-300 mcg tablet 1 tab By Mouth Once daily For supplement 1 tab 2023 Active 2023 72950 37702 1 Once daily By Mouth False Cholecalcif adalberto (vitamin D3) 50 mcg (2,000 unit) tablet [generic] 1 TAB By Mouth Once daily For SUPP 1 TAB 2023 Active 2023 65842 42441 1 Once daily By Mouth False Cetirizine 10 mg tablet [generic] 1 TAB By Mouth At bedtime For Allergies 1 TAB 2023 Active 2023 18670 01975 0 At bedtime By Mouth False Timolol maleate 0.25 % eye drops [generic] 1 drop Both Eyes Twice daily For glaucoma 1 drop 2023 Active 2023 16732 60187 5 Twice daily Both Eyes False Alendronate 35 mg tablet [generic] 35mg By Mouth Every week For SIADH 35mg 08/31 Inactiv e 2023 00853 13303 5 Every week By Mouth False Lantus Solostar U-100 Insulin 100 unit/mL (3 mL) subcutaneou s pen 18 units Subcutaneous Every morning For DIABETES 18 units 08/25 Inactiv e 2023 11813 48683 0 Every morning Subcut aneous False Lantus Solostar U-100 Insulin 100 unit/mL (3 mL) subcutaneou s pen 18 units Subcutaneous Every morning For DIABETES 18 units 2023 Active 2023 74311 77291 0 Every morning Subcut aneous False Linezolid 600 mg tablet [generic] 600 mg By Mouth Every 12 hours For MRSA INFECTION L BKA 600 mg 08/28 Inactiv e 2023 57396 46906 1 Every 12 hours By Mouth False [...] order For Diabetes 08/31 Inactiv e 2023 75708 26313 9 4 times a day Subcut aneous False Cefpodoxime 200 mg tablet [generic] 400 mg By Mouth Twice daily For MRSA INFECTION L BKA 400 mg 08/28 Inactiv e 2023 24118 60948 0 Twice daily By Mouth False Brimonidine 0.1 % eye drops [generic] 1 drop Both Eyes Twice daily For glaucoma 1 drop 2023 Active 2023 80937 75931 0 Twice daily Both Eyes False Metoprolol succinate ER 50 mg tablet,exte nded release 24 hr [generic] 50 mg By Mouth Once daily HOLD FOR SBP <100, or pulse <60 For HTN 50 mg 2023 Active 2023 27355 10333 1 Once daily By Mouth False Amlodipine 2.5 mg tablet [generic] 2.5 mg By Mouth Once daily For HTN 2.5 mg 2023 Active 2023 59824 35275 5 Once daily By Mouth False Docusate sodium 100 mg capsule [generic] 100mg By Mouth Twice daily as needed For constipation HOLD FOR LOOSE STOOLS 100mg 2023 Active 2023 67457 25629 1 Twice daily as needed By Mouth False Atorvastati n 40 mg tablet [generic] 40mg By Mouth Once daily For HDL 40mg 08/26 Inactiv e 2023 65712 14906 5 Once daily By Mouth False Tylenol 325 mg tablet 2 tabs By Mouth Every 4 hours as needed For Pain DO NOT EXCEED 3000 MG APAP/24 Hours 2 tabs 2023 Active 2023 87078 00004 0 Every 4 hours as needed By Mouth False Tylenol 325 mg tablet 2 tabs By Mouth Every 4 hours as needed For Fever >100 DO NOT EXCEED 3000 MG APAP/24 Hours 2 tabs 2023 Active 2023 94107 52014 0 Every 4 hours as needed By Mouth False Dulcolax (bisacodyl) 10 mg rectal suppository One Suppository per rectum PRN if Milk of Magnisia ineffective. Give on day 5 of no BM 1 sup 2023 Active 2023 04361 57947 1 Daily as needed Rectal False Fleet Enema 19 gram-7 gram/118 mL Administer per rectum PRN one time if dulcolax suppository not effective. Give on day 6 of no BM 1 2023 Active 2023 82037 67566 6 Daily as needed Rectal False Dextrose 50 % in water (D50W) intravenous solution [generic] Dextrose 50% evonne 20-50 ml (slow push) Intravenous if Glucagon not effective after 15 minutes. CALL 911 for ED Evaluation. 50% evonne 2023 Active 2023 18603 40077 9 Intrav enous False Glucagon (HCl) Emergency Kit 1 mg solution for injection Administer Glucagon 1 mg Intramuscular if 15 minutes after GLucose Gel is administered Glucose remains less than 70 1 mg 2023 Active 2023 76699 84443 2 Intram uscula r False Glucose Gel 40 % oral gel [Dextrose] PRN If resident is unable to swallow (with or without symptoms) and Glucose results less than 70 give GLucose 40% Gel 1 tube orally - Recheck Glucose 15 minutes after administratio n. 1 tube 2023 Active 2023 04764 87686 8 By Mouth False Milk of Magnesia 400 mg/5 mL oral suspension [Magnesium hydroxide] PRN 30ml By Mouth Daily as needed for constipation one time daily if no BM, on day 4 of no BM (PRN refer to instructions) For Constipation 30 mL 2023 Active 2023 05584 11882 6 Daily as needed By Mouth False Atorvastati n 40 mg tablet [generic] 08/26 Inactiv e 2023 15782 19621 5 Atorvastati n 40 mg tablet [generic] 40mg By Mouth Once daily For HDL 40mg 2023 Active 2023 58126 93609 5 Once daily By Mouth False Insulin aspart (U-100) 100 unit/mL (3 mL) subcutaneou s pen [generic] 15 units Subcutaneous 1 time For dm 15 units 08/26 Inactiv e 2023 88419 48914 5 1 time Subcut aneous False Humalog KwikPen (U-100) Insulin 100 unit/mL subcutaneou s 15 units Subcutaneous 1 time For dm 15 units 08/27 Inactiv e 2023 31585 43209 9 1 time Subcut aneous False Linezolid 600 mg tablet [generic] 600 mg By Mouth Every 12 hours For MRSA INFECTION L BKA 600 mg 09/06 Inactiv e 2023 42251 90110 1 Every 12 hours By Mouth False Cefpodoxime 200 mg tablet [generic] 400 mg By Mouth Twice daily For MRSA INFECTION L BKA 400 mg 08/31 Inactiv e 2023 42736 33240 0 Twice daily By Mouth False Senna 8.6 mg tablet 8.6 mg By Mouth Once daily For Constipation 8.6 mg 09/07 Inactiv e 2023 72732 94488 1 Once daily By Mouth False Humalog [...] . 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 08/25/2024 Active [...] weight Temperature SpO2 Blood Sugar Pulse Respirations 39134 8 67.00 mm[Hg] - Sitting 145.00 mm[Hg] - Sitting 98.50 Forehead Scan 96.00 % 81.00/ min 16.00/min 95370 2 67.00 mm[Hg] - Sitting 145.00 mm[Hg] - Sitting 98.50 Tympanic 81.00/ min 16.00/min 24671 004 09359 5 56.00 mm[Hg] - Sitting 142.00 mm[Hg] - Sitting 136.40 NI 100.20 Tympanic 96.00 % 92.00/ min 18.00/min 96116 004 95931 6 07270 004 92978 4 143.00 mg/dL 79616 004 18372 0 97.80 Tympanic 16824 005 80518 7 60.00 mm[Hg] - Sitting 140.00 mm[Hg] - Sitting 98.00 Tympanic 84.00/ min 18.00/min 55347 005 64037 0 63.00 mm[Hg] - Sitting 141.00 mm[Hg] - Sitting 98.20 Tympanic 92.00 % 63.00/ min 16.00/min 03523 005 88620 8 69.00 mm[Hg] - Sitting 106.00 mm[Hg] - Sitting 97.20 Tympanic 53454 005 82599 7 69.00/ min 16.00/min 88338 005 97467 3 69.00 mm[Hg] - Sitting 106.00 mm[Hg] - Sitting 98.20 Tympanic 69.00/ min 16.00/min 40320 005 17951 1 367.00 mg/dL 11808 005 33185 2 97.20 Tympanic 60536 005 22395 4 97.20 Tympanic 70982 005 17385 0 69.00 mm[Hg] - Sitting 106.00 mm[Hg] - Sitting 69.00/ min 25538 005 80281 3 452.00 mg/dL 57558 005 88316 3 452.00 mg/dL 61243 005 37916 5 352.00 mg/dL 97609 005 33191 3 352.00 mg/dL 13284 005 73645 7 98.20 Tympanic 31063 005 18645 3 101.00 mg/dL 18152 005 77173 8 101.00 mg/dL 83779 006 90958 4 66.00 mm[Hg] - Sitting 107.00 mm[Hg] - Sitting 98.00 Tympanic 66.00/ min 18.00/min 00957 006 57469 0 62.00 mm[Hg] - Sitting 162.00 mm[Hg] - Sitting 98.20 Tympanic 96.00 % 60.00/ min 16.00/min 29059 006 94299 4 62.00 mm[Hg] - Sitting 162.00 mm[Hg] - Sitting 98.00 Tympanic 70.00/ min 18.00/min 59310 006 30415 8 62.00 mm[Hg] - Sitting 162.00 mm[Hg] - Sitting 98.20 Tympanic 70.00/ min 18.00/min 32916 006 61181 2 66.00 mm[Hg] - Sitting 132.00 mm[Hg] - Sitting 98.60 Tympanic 74.00/ min 16.00/min 04091 006 71894 5 159.00 mg/dL 59385 006 91430 1 159.00 mg/dL 03730 006 68449 8 98.00 Tympanic 81646 006 54531 2 62.00 mm[Hg] - Sitting 162.00 mm[Hg] - Sitting 70.00/ min 86644 006 65586 7 264.00 mg/dL 35515 006 57246 7 264.00 mg/dL 92230 006 43287 4 196.00 mg/dL 60070 006 31450 3 98.20 Tympanic 90189 006 45003 6 271.00 mg/dL 11804 007 73861 3 97.20 Tympanic 85192 007 23858 2 63.00 mm[Hg] - Sitting 132.00 mm[Hg] - Sitting 98.50 Tympanic 94.00 % 66.00/ min 16.00/min 52535 007 29484 5 188.00 mg/dL 37880 007 56742 2 188.00 mg/dL 45952 007 88012 2 188.00 mg/dL 56277 007 67398 7 97.20 Tympanic 06329 007 28448 6 97.20 Tympanic 20102 007 38927 5 67.00 mm[Hg] - Sitting 152.00 mm[Hg] - Sitting 68.00/ min 05842 007 42570 0 141.00 mg/dL 89979 007 94944 3 141.00 mg/dL 16656 007 81059 1 366.00 mg/dL 55473 007 26623 7 366.00 mg/dL 79212 007 81423 7 98.00 Tympanic 91832 007 29870 6 324.00 mg/dL 96140 007 09838 3 98.00 Tympanic 82346 007 78991 7 324.00 mg/dL 56287 008 32375 0 98.00 Tympanic 00743 008 37039 2 97.90 Tympanic 33908 008 39754 0 98.20 Tympanic 43703 008 89374 0 73.00 mm[Hg] - Sitting 156.00 mm[Hg] - Sitting 98.60 Tympanic 99.00 % 66.00/ min 20.00/min 46416 008 89784 5 137.00 mg/dL 69644 008 70672 7 137.00 mg/dL 19352 008 24890 2 97.90 Tympanic 15486 008 83359 1 137.00 mg/dL 29609 008 63540 8 97.90 Tympanic 88764 008 97374 5 67.00 mm[Hg] - Sitting 124.00 /min 49051 008 76007 6 212.00 mg/dL 87094 008 18423 6 212.00 mg/dL 78918 008 37012 9 317.00 mg/dL 89944 008 99484 4 317.00 mg/dL 77629 008 14744 8 252.00 mg/dL 73614 008 66277 0 98.70 Tympanic 33841 008 84637 7 252.00 mg/dL 63495 008 73384 3 98.70 Tympanic 98114 009 75212 9 98.70 Tympanic 74429 009 06619 3 98.20 Tympanic 21863 009 64661 5 98.40 Tympanic 65845 009 28624 5 57.00 mm[Hg] - Sitting 129.00 mm[Hg] - Sitting 98.30 Tympanic 97.00 % 65.00/ min 18.00/min 79810 009 70414 1 255.00 mg/dL 38714 009 95084 4 255.00 mg/dL 83742 009 78117 5 98.20 Tympanic 15014 009 27424 0 255.00 mg/dL 95600 009 30642 0 98.20 Tympanic 04370 009 01877 4 63.00 mm[Hg] - Lying Down 102.00 mm[Hg] - Lying Down 58.00/ min 47679 009 88922 0 167.00 mg/dL 11657 009 32986 1 167.00 mg/dL 78910 009 99053 2 164.00 mg/dL 87370 009 40692 1 164.00 mg/dL 69499 009 48021 5 208.00 mg/dL 34182 010 21526 3 98.40 Tympanic 13489 010 57064 5 98.40 Tympanic 87116 010 30884 7 66 NI 99214 010 17804 4 60.00 mm[Hg] - Sitting 143.00 mm[Hg] - Sitting 98.90 Tympanic 98.00 % 67.00/ min 18.00/min 08625 010 22595 2 214.00 mg/dL 49759 010 40755 0 214.00 mg/dL 08401 010 31046 7 214.00 mg/dL 15339 010 68471 6 64.00 mm[Hg] - Sitting 110.00 mm[Hg] - Sitting 72.00/ min 66728 010 86302 7 98.40 Tympanic 89020 010 97884 1 212.00 mg/dL 91766 010 86715 2 212.00 mg/dL 39496 010 77803 1 115.00 mg/dL 55385 010 67978 0 115.00 mg/dL 23623 010 20769 4 98.50 Tympanic 11494 010 46049 4 150.00 mg/dL 20998 010 14110 0 150.00 mg/dL 20301 011 27299 9 98.60 Tympanic 13409 011 39387 1 67.00 mm[Hg] - Sitting 144.00 mm[Hg] - Sitting 98.20 Tympanic 98.00 % 61.00/ min 18.00/min 67900 011 87781 7 290.00 mg/dL 29775 011 44065 2 290.00 mg/dL 42015 011 40877 2 290.00 mg/dL 36647 011 59347 7 54.00 mm[Hg] - Sitting 136.00 mm[Hg] - Sitting 101.00 /min 75062 011 60775 7 98.60 Tympanic 38229 011 05977 5 240.00 mg/dL 11913 011 86453 1 240.00 mg/dL 69877 011 65456 1 156.00 mg/dL 91924 011 58194 9 156.00 mg/dL 36622 011 93736 0 97.80 Tympanic 87628 011 01546 8 343.00 mg/dL 18469 012 82365 9 97.90 Tympanic 83326 012 32586 2 466.00 mg/dL 03667 012 60947 1 466.00 mg/dL 20249 012 37343 3 466.00 mg/dL 83362 012 26748 8 97.90 Tympanic 95897 012 55639 8 56.00 mm[Hg] - Sitting 96.00 mm[Hg] - Sitting 61.00/ min 14164 012 98371 7 350.00 mg/dL 75060 012 21728 5 350.00 mg/dL 43597 012 93058 6 111.00 mg/dL 60037 012 08385 0 111.00 mg/dL 28335 012 09171 5 98.40 Tympanic 48349 012 75825 6 114.00 mg/dL 30761 013 57234 4 74.00 mm[Hg] - Sitting 112.00 mm[Hg] - Sitting 98.40 Tympanic 70.00/ min 18.00/min 10919 013 07955 8 244.00 mg/dL 01902 013 49181 7 244.00 mg/dL 72664 013 45558 1 244.00 mg/dL 66329 013 43842 1 98.20 Tympanic 47789 013 73890 7 72.00 mm[Hg] - Sitting 119.00 mm[Hg] - Sitting 76.00/ min 56404 013 24664 7 253.00 mg/dL 33221 013 46337 4 253.00 mg/dL 59017 013 64208 9 156.00 mg/dL 83697 013 02316 5 156.00 mg/dL 39002 013 15992 4 97.90 Tympanic 81094 013 66606 5 189.00 mg/dL 40809 014 42928 9 98.10 Tympanic 87394 014 85968 0 61.00 mm[Hg] - Sitting 139.00 mm[Hg] - Sitting 98.20 Forehead Scan 99.00 % 66.00/ min 18.00/min 17787 014 73705 3 169.00 mg/dL 82882 014 72845 3 98.10 Tympanic 76135 014 34207 3 75.00 mm[Hg] - Sitting 121.00 mm[Hg] - Sitting 71.00/ min 51006 014 93385 9 221.00 mg/dL 03814 014 65021 9 62.00 mg/dL 53950 014 72535 5 62.00 mg/dL 38310 014 75879 8 156.00 mg/dL 15707 014 19313 6 98.10 Tympanic 60537 014 04517 7 156.00 mg/dL 37116 015 36501 4 98005 015 89749 7 62.00 mm[Hg] - Sitting 142.00 mm[Hg] - Sitting 98.20 Tympanic 99.00 % 67.00/ min 18.00/min 61850 015 97619 9 120.00 mg/dL 66003 015 04614 7 98.00 Tympanic 39014 015 63609 2 82.00 mm[Hg] - Sitting 119.00 /min 52244 015 07691 9 110.00 mg/dL 92300 015 94963 6 104.00 mg/dL 39415 015 74397 0 100.00 mg/dL 56803 015 09115 2 98.10 Tympanic 88558 015 47422 6 100.00 mg/dL 60459 016 80049 2 67.00 mm[Hg] - Sitting 147.00 mm[Hg] - Sitting 99.00 Tympanic 99.00 % 78.00/ min 20.00/min 36120 016 56467 5 158.00 mg/dL 62100 016 11413 1 158.00 mg/dL 11044 016 86353 2 158.00 mg/dL 79530 016 88600 0 66.00 mm[Hg] - Sitting 121.00 mm[Hg] - Sitting 74.00/ min 03051 016 57482 1 97.00 mg/dL 03607 016 30367 5 97.00 mg/dL 84660 016 59789 4 78.00 mg/dL 99610 016 42293 6 78.00 mg/dL 46751 016 30323 5 248.00 mg/dL 85514 016 69017 8 248.00 mg/dL 20990 017 41376 3 54.00 mm[Hg] - Sitting 142.00 mm[Hg] - Sitting 98.30 Tympanic 99.00 % 76.00/ min 18.00/min 97978 017 80576 4 267.00 mg/dL 93948 017 73194 6 73.00 mm[Hg] - Sitting 109.00 mm[Hg] - Sitting 70.00/ min 21399 017 37335 1 184.00 mg/dL 11138 017 45165 5 184.00 mg/dL 11426 017 74699 9 248.00 mg/dL 59989 017 23674 8 299.00 mg/dL 69228 017 86497 3 299.00 mg/dL 20892 018 53519 7 50.00 mm[Hg] - Sitting 125.00 mm[Hg] - Sitting 98.30 Tympanic 98.00 % 76.00/ min 16.00/min 00747 018 56309 3 168.00 mg/dL 90101 018 29180 0 75.00 mm[Hg] - Sitting 121.00 mm[Hg] - Sitting 70.00/ min 26206 018 54249 7 264.00 mg/dL 05070 018 38879 6 132.00 mg/dL 87129 018 47776 6 154.00 mg/dL 64125 018 54525 6 154.00 mg/dL 40760 019 13743 4 63.00 mm[Hg] - Sitting 147.00 mm[Hg] - Sitting 98.50 Tympanic 99.00 % 69.00/ min 18.00/min 13492 019 52322 9 159.00 mg/dL 58935 019 32627 8 73.00 mm[Hg] - Sitting 110.00 mm[Hg] - Sitting 72.00/ min 80921 019 65531 4 191.00 mg/dL 18159 019 50371 8 70.00 mg/dL 59219 019 77344 4 70.00 mg/dL 98652 019 69431 6 198.00 mg/dL 56552 019 76688 0 198.00 mg/dL 39888 020 68096 2 59.00 mm[Hg] - Sitting 131.00 mm[Hg] - Sitting 98.90 Tympanic 99.00 % 69.00/ min 18.00/min 50974 020 17301 7 299.00 mg/dL 05214 020 21990 0 62.00 mm[Hg] - Sitting 132.00 mm[Hg] - Sitting 68.00/ min 22468 020 97253 3 299.00 mg/dL 34143 020 96357 3 299.00 mg/dL 99781 020 55425 9 220.00 mg/dL 41798 020 21499 1 220.00 mg/dL 47192 020 96827 1 270.00 mg/dL 72945 020 77926 4 270.00 mg/dL 58711 020 66245 9 143.00 mg/dL 93362 020 70225 4 143.00 mg/dL 28036 021 79572 0 59.00 mm[Hg] - Sitting 121.00 mm[Hg] - Sitting 98.40 Forehead Scan 98.00 % 70.00/ min 16.00/min 98089 021 05001 0 140.00 mg/dL 23277 021 52108 0 67.00 mm[Hg] - Sitting 130.00 mm[Hg] - Sitting 68.00/ min 07691 021 40162 8 140.00 mg/dL 91842 021 65918 6 140.00 mg/dL 11528 021 35039 8 156.00 mg/dL 96477 021 84993 1 156.00 mg/dL 04345 021 69480 5 146.00 mg/dL 62565 021 49655 4 146.00 mg/dL 08828 021 46238 5 183.00 mg/dL 91816 021 24910 2 183.00 mg/dL 12817 022 21323 3 30974 022 97152 1 43.00 mm[Hg] - Sitting 113.00 mm[Hg] - Sitting 97.80 Tympanic 97.00 % 64.00/ min 18.00/min 58283 022 92011 6 270.00 mg/dL 38734 022 61253 5 68.00 mm[Hg] - Sitting 122.00 mm[Hg] - Sitting 67.00/ min 48911 022 29157 9 270.00 mg/dL 36282 022 04827 4 270.00 mg/dL 86690 022 44703 4 207.00 mg/dL 08127 022 62086 8 207.00 mg/dL 55686 022 24042 9 217.00 mg/dL 00655 022 78781 2 217.00 mg/dL 97205 022 37803 0 192.00 mg/dL 11654 022 54372 9 192.00 mg/dL 15810 023 03859 8 48.00 mm[Hg] - Sitting 116.00 mm[Hg] - Sitting 98.50 Tympanic 97.00 % 63.00/ min 18.00/min 52061 023 73523 9 68.00 mm[Hg] - Sitting 131.00 mm[Hg] - Sitting 68.00/ min 05195 023 11261 8 235.00 mg/dL 64209 023 20895 4 235.00 mg/dL 52358 023 00705 0 235.00 mg/dL 92256 023 51276 0 199.00 mg/dL 35491 023 61279 7 199.00 mg/dL 45358 023 38836 4 233.00 mg/dL 83284 023 01208 3 233.00 mg/dL 19918 023 83683 6 229.00 mg/dL 14968 023 30471 4 229.00 mg/dL 66552 024 81339 3 58.00 mm[Hg] - Sitting 102.00 mm[Hg] - Sitting 58.00/ min 36115 024 04108 9 156.00 mg/dL 84383 024 56426 4 156.00 mg/dL 19187 024 72613 3 156.00 mg/dL 99739 024 14303 0 343.00 mg/dL 03389 024 47630 6 343.00 mg/dL 07207 024 67776 2 167.00 mg/dL 95824 024 39340 0 167.00 mg/dL 54338 024 76843 8 155.00 mg/dL 28081 024 29334 7 155.00 mg/dL 17765 025 69910 0 51.00 mm[Hg] - Lying Down 109.00 mm[Hg] - Lying Down 98.60 Tympanic 95.00 % 67.00/ min 20.00/min 51980 025 85944 0 60.00 mm[Hg] - Sitting 118.00 mm[Hg] - Sitting 98.30 Forehead Scan 98.00 % 68.00/ min 16.00/min 05067 025 84551 3 235.00 mg/dL 55794 025 89761 1 63.00 mm[Hg] - Sitting 110.00 mm[Hg] - Sitting 75.00/ min 74542 025 34118 9 295.00 mg/dL 82698 025 19538 4 94.00 mg/dL 59041 025 27822 1 132.00 mg/dL 14998 025 44580 2 132.00 mg/dL 88387 026 24125 8 50.00 mm[Hg] - Sitting 123.00 mm[Hg] - Sitting 98.50 Tympanic 95.00 % 66.00/ min 18.00/min 13510 026 94973 0 275.00 mg/dL 47594 026 45440 7 275.00 mg/dL 91577 026 58794 1 275.00 mg/dL 23096 026 64751 6 67.00 mm[Hg] - Sitting 123.00 mm[Hg] - Sitting 66.00/ min 41598 026 09334 3 187.00 mg/dL 26316 026 29637 5 187.00 mg/dL 20299 026 38841 0 167.00 mg/dL 98191 026 10839 8 167.00 mg/dL 94149 026 66742 6 387.00 mg/dL 91842 027 72942 7 53.00 mm[Hg] - Sitting 132.00 mm[Hg] - Sitting 98.60 Tympanic 97.00 % 64.00/ min 18.00/min 11852 027 84409 9 189.00 mg/dL 35518 027 92879 4 67.00 mm[Hg] - Sitting 118.00 mm[Hg] - Sitting 66.00/ min 40588 027 07227 2 189.00 mg/dL 24992 027 76185 7 189.00 mg/dL 07927 027 90485 1 105.00 mg/dL 39877 027 30980 8 105.00 mg/dL 50720 027 90235 4 223.00 mg/dL 48056 027 36388 9 223.00 mg/dL 52773 027 38633 9 164.00 mg/dL 94051 028 81797 0 68.00 mm[Hg] - Sitting 115.00 mm[Hg] - Sitting 98.60 Forehead Scan 96.00 % 71.00/ min 16.00/min 55250 028 20537 1 200.00 mg/dL 64421 028 21874 9 200.00 mg/dL 03367 028 14813 1 69.00 mm[Hg] - Sitting 122.00 mm[Hg] - Sitting 67.00/ min 12017 028 78621 3 200.00 mg/dL 86426 028 82416 0 117.00 mg/dL 24567 028 20740 0 117.00 mg/dL 89913 028 47823 1 114.00 mg/dL 77212 028 72627 7 114.00 mg/dL 68453 028 04182 0 179.00 mg/dL 70310 028 46696 8 179.00 mg/dL 95832 029 59200 4 44.00 mm[Hg] - Sitting 121.00 mm[Hg] - Sitting 98.30 Tympanic 97.00 % 65.00/ min 18.00/min 85727 029 82621 9 147.00 mg/dL 83062 029 96748 0 147.00 mg/dL 84358 029 37097 4 147.00 mg/dL 73201 029 42986 1 63.00 mm[Hg] - Sitting 118.00 mm[Hg] - Sitting 74.00/ min 40969 029 82746 2 278.00 mg/dL 89470 029 54172 3 278.00 mg/dL 86104 029 80638 1 241.00 mg/dL 79979 029 41525 8 11164 029 77578 1 504.00 mg/dL 10741 030 82990 4 242.00 mg/dL 22016 030 45994 8 68.00 mm[Hg] - Sitting 121.00 mm[Hg] - Sitting 68.00/ min 45725 030 99624 2 242.00 mg/dL 76913 030 42992 3 170.00 mg/dL 030 98192 0 170.00 mg/dL 030 22004 4 200.00 mg/dL 030 85578 7 200.00 mg/dL Immunizations Vaccine Date Status COVID-19 09/20/2023 Completed Influenza 09/14/2024 Completed Other 10/08/2023 Completed Shingles 05/27/2011 Completed Tetanus 04/13/2022 Completed TDaP 04/13/2022 Completed Shingles 2 10/05/2018 Completed
--- OUTSIDE RECORDS SUMMARY | 2024-10-03 10:54 | External Medical Summary | Continuity Of Care Document ---
Author Name Unknown Address [address] [address] Organization [facility] () Care Team Providers [facility] Name Role Phone DO Machado Amy Primary Care Provider [phone] Allergies Allergy Reaction Start Date End Date [...] 3 0.1 mL 08/29 Inactiv e 2023 09704 63822 0 1 time Intrad ermal False Tubersol 5 tub. unit/0.1 mL intradermal injection solution [Tuberculin PPD] 0.1mL Intradermal 1 time For PPD 2nd Step Give 2nd Step PPD Day 1 and Read results Day 3 (schedule 7 days after 1st READ) 0.1mL 09/08 Inactiv e 2023 77432 62448 0 1 time Intrad ermal False [facility] - Nurse initials indicate verificatio n that [id number] vaccine was administere d by [facility] [...] order For Diabetes 08/25 Inactiv e 2023 44987 29591 9 4 times a day Subcut aneous False Aspirin 325 mg tablet [generic] 325 By Mouth Twice daily For Anticoagulati on 325 09/25 Active 2023 45193 91841 1 Twice daily By Mouth False Ferrous sulfate 325 mg (65 mg iron) tablet [generic] 325 By Mouth Once daily For anemia 325 2023 Active 2023 27232 60442 5 Once daily By Mouth False Linezolid 600 mg tablet [generic] 600 mg By Mouth Every 12 hours For MRSA INFECTION L BKA 600 mg 08/25 Inactiv e 2023 47394 42226 1 Every 12 hours By Mouth False Cefpodoxime 200 mg tablet [generic] 400 mg By Mouth Twice daily For MRSA INFECTION L BKA 400 mg 08/25 Inactiv e 2023 25382 26865 0 Twice daily By Mouth False Coenzyme Q10 100 mg tablet [generic] 100 mg By Mouth Once daily For SUPP 100 mg 2023 Active 2023 99578 81033 0 Once daily By Mouth False Levothyroxi ne 50 mcg tablet [generic] 50mcg By Mouth Once daily For hypothyroidis m 50mcg 2023 Active 2023 83740 94988 0 Once daily By Mouth False One A Day Men Complete 240 mcg-25 mcg-300 mcg tablet 1 tab By Mouth Once daily For supplement 1 tab 2023 Active 2023 75194 37645 1 Once daily By Mouth False Cholecalcif adalberto (vitamin D3) 50 mcg (2,000 unit) tablet [generic] 1 TAB By Mouth Once daily For SUPP 1 TAB 2023 Active 2023 99042 98615 1 Once daily By Mouth False Cetirizine 10 mg tablet [generic] 1 TAB By Mouth At bedtime For Allergies 1 TAB 2023 Active 2023 85710 79786 0 At bedtime By Mouth False Timolol maleate 0.25 % eye drops [generic] 1 drop Both Eyes Twice daily For glaucoma 1 drop 2023 Active 2023 87220 08834 5 Twice daily Both Eyes False Alendronate 35 mg tablet [generic] 35mg By Mouth Every week For SIADH 35mg 08/31 Inactiv e 2023 55982 87970 5 Every week By Mouth False Lantus Solostar U-100 Insulin 100 unit/mL (3 mL) subcutaneou s pen 18 units Subcutaneous Every morning For DIABETES 18 units 08/25 Inactiv e 2023 53257 23995 0 Every morning Subcut aneous False Lantus Solostar U-100 Insulin 100 unit/mL (3 mL) subcutaneou s pen 18 units Subcutaneous Every morning For DIABETES 18 units 2023 Active 2023 48974 71373 0 Every morning Subcut aneous False Linezolid 600 mg tablet [generic] 600 mg By Mouth Every 12 hours For MRSA INFECTION L BKA 600 mg 08/28 Inactiv e 2023 00630 02963 1 Every 12 hours By Mouth False [...] order For Diabetes 08/31 Inactiv e 2023 63889 83581 9 4 times a day Subcut aneous False Cefpodoxime 200 mg tablet [generic] 400 mg By Mouth Twice daily For MRSA INFECTION L BKA 400 mg 08/28 Inactiv e 2023 20376 79864 0 Twice daily By Mouth False Brimonidine 0.1 % eye drops [generic] 1 drop Both Eyes Twice daily For glaucoma 1 drop 2023 Active 2023 56489 79220 0 Twice daily Both Eyes False Metoprolol succinate ER 50 mg tablet,exte nded release 24 hr [generic] 50 mg By Mouth Once daily HOLD FOR SBP <100, or pulse <60 For HTN 50 mg 2023 Active 2023 81490 66345 1 Once daily By Mouth False Amlodipine 2.5 mg tablet [generic] 2.5 mg By Mouth Once daily For HTN 2.5 mg 2023 Active 2023 59084 35008 5 Once daily By Mouth False Docusate sodium 100 mg capsule [generic] 100mg By Mouth Twice daily as needed For constipation HOLD FOR LOOSE STOOLS 100mg 2023 Active 2023 78889 73544 1 Twice daily as needed By Mouth False Atorvastati n 40 mg tablet [generic] 40mg By Mouth Once daily For HDL 40mg 08/26 Inactiv e 2023 74485 08857 5 Once daily By Mouth False Tylenol 325 mg tablet 2 tabs By Mouth Every 4 hours as needed For Pain DO NOT EXCEED 3000 MG APAP/24 Hours 2 tabs 2023 Active 2023 66213 20474 0 Every 4 hours as needed By Mouth False Tylenol 325 mg tablet 2 tabs By Mouth Every 4 hours as needed For Fever >100 DO NOT EXCEED 3000 MG APAP/24 Hours 2 tabs 2023 Active 2023 05667 42779 0 Every 4 hours as needed By Mouth False Dulcolax (bisacodyl) 10 mg rectal suppository One Suppository per rectum PRN if Milk of Magnisia ineffective. Give on day 5 of no BM 1 sup 2023 Active 2023 35675 95325 1 Daily as needed Rectal False Fleet Enema 19 gram-7 gram/118 mL Administer per rectum PRN one time if dulcolax suppository not effective. Give on day 6 of no BM 1 2023 Active 2023 36862 89840 6 Daily as needed Rectal False Dextrose 50 % in water (D50W) intravenous solution [generic] Dextrose 50% evonne 20-50 ml (slow push) Intravenous if Glucagon not effective after 15 minutes. CALL 911 for ED Evaluation. 50% evonne 2023 Active 2023 03089 68447 9 Intrav enous False Glucagon (HCl) Emergency Kit 1 mg solution for injection Administer Glucagon 1 mg Intramuscular if 15 minutes after GLucose Gel is administered Glucose remains less than 70 1 mg 2023 Active 2023 60174 08361 2 Intram uscula r False Glucose Gel 40 % oral gel [Dextrose] PRN If resident is unable to swallow (with or without symptoms) and Glucose results less than 70 give GLucose 40% Gel 1 tube orally - Recheck Glucose 15 minutes after administratio n. 1 tube 2023 Active 2023 34197 25169 8 By Mouth False Milk of Magnesia 400 mg/5 mL oral suspension [Magnesium hydroxide] PRN 30ml By Mouth Daily as needed for constipation one time daily if no BM, on day 4 of no BM (PRN refer to instructions) For Constipation 30 mL 2023 Active 2023 45614 81322 6 Daily as needed By Mouth False Atorvastati n 40 mg tablet [generic] 08/26 Inactiv e 2023 13088 36750 5 Atorvastati n 40 mg tablet [generic] 40mg By Mouth Once daily For HDL 40mg 2023 Active 2023 26958 92327 5 Once daily By Mouth False Insulin aspart (U-100) 100 unit/mL (3 mL) subcutaneou s pen [generic] 15 units Subcutaneous 1 time For dm 15 units 08/26 Inactiv e 2023 22542 76290 5 1 time Subcut aneous False Humalog KwikPen (U-100) Insulin 100 unit/mL subcutaneou s 15 units Subcutaneous 1 time For dm 15 units 08/27 Inactiv e 2023 85275 64974 9 1 time Subcut aneous False Linezolid 600 mg tablet [generic] 600 mg By Mouth Every 12 hours For MRSA INFECTION L BKA 600 mg 09/06 Inactiv e 2023 56265 91338 1 Every 12 hours By Mouth False Cefpodoxime 200 mg tablet [generic] 400 mg By Mouth Twice daily For MRSA INFECTION L BKA 400 mg 08/31 Inactiv e 2023 39905 65979 0 Twice daily By Mouth False Senna 8.6 mg tablet 8.6 mg By Mouth Once daily For Constipation 8.6 mg 09/07 Inactiv e 2023 74513 84104 1 Once daily By Mouth False Humalog [...] . Per Carb 09/19 Inactiv e 2023 10695 85075 9 4 times a day Subcut aneous False Alendronate 35 mg tablet [generic] 08/31 Inactiv e 2023 05591 84207 5 Alendronate 35 mg tablet [generic] 35mg By Mouth Every week For Osteoporosis 35mg 2023 00/00 /0000 Active 2023 25155 49537 5 Every week By Mouth False ProSource 10 gram-100 kcal/30 mL oral liquid 30 ml By Mouth Once daily For wound healing 30 ml 2023 Active 2023 91708 44255 2 Once daily By Mouth False Clotrimazol e 1 % topical cream [generic] 1 applicaiton Topical Twice daily For tinea, apply to groin rash after cleansing and throughouly drying. Can discontinue order 3 days after rash resolves. 1 applica stacy 09/08 Inactiv e 2023 45857 53012 0 Twice daily Topica l False MAGIC MIX 1:1:1:1 : ZINC OXIDE EXTERNAL OINTMENT 40%; HYDROCOTISO NE EXTERNAL CREAM 1%; NYSTATIN EXTERNAL CREAM 955202N/GM; SILVADENE CREAM 1% Every shift Apply topically to MASD area on coccyx/buttoc ks each shift and as needed for incontinence care For MASD on coccyx layer 2023 Active 2023 Every shift Topica l False Senna 8.6 mg tablet 8.6 mg By Mouth Once daily For Constipation 8.6 mg 09/07 Inactiv e 2023 91106 90994 1 Once daily By Mouth False Senna 8.6 mg tablet 8.6 mg By Mouth Once daily As Needed For Constipation 8.6 mg 2023 Active 2023 59255 52951 1 Once daily By Mouth False BD AutoShield Duo Pen Needle 30 gauge x 3/16in 1 pen needle Subcutaneous 4 times a day For DM 1 pen needle 2023 Active 2023 38819 18262 5 4 times a day Subcut aneous False Hydrocortis one 1 % topical ointment [generic] 1 application Topical Twice daily For tinea *mix 1:1 with clotrimazole cream and apply to clean/dry groin rash 1 applica peggy 09/19 Inactiv e 2023 87521 43729 6 Twice daily Topica l False Clotrimazol e 1 % topical cream [generic] 1 applicaiton Topical Twice daily For tinea, apply to groin rash after cleansing and throughouly drying. MIX WITH HYDROCORTISON E Can discontinue order 3 days after rash resolves. 1 applica stacy 2023 Active 2023 85672 73837 0 Twice daily Topica l False Humalog KwikPen (U-100) Insulin 100 unit/mL subcutaneou s 09/19 Inactiv e 2023 83289 65153 9 Humalog KwikPen (U-100) Insulin 100 unit/mL [...] abnormalities . Per Carb 2023 Active 2023 57695 76683 9 4 times a day Subcut aneous False Humalog KwikPen (U-100) Insulin 100 unit/mL subcutaneou s 10 units Subcutaneous 1 time For DM 10 units 09/20 Active 2023 43510 68212 9 1 time Subcut aneous False Humalog KwikPen (U-100) Insulin 100 unit/mL subcutaneou s 08/31 Inactiv e 2023 17242 36672 9 MediHoney HCS 4 1/2in X 4 1/2in bandage Cleanse area with NSS, apply one medihoney hydrocolloid dressing, non adherent dressing, kerlix secure with paper tape daily. For wound stage III 1 09/19 Inactiv e 2023 98978 47494 1 Once daily Topica l False Betadine 10 % topical solution wound care cleanse withnormal saline, apply gauze soaked in betadine, leave on 5 minutes pat dry leave open to air 1 2023 Active 2023 78391 65395 1 Once daily Topica l False Problems Code Description Start Date End Date Status D64.9 Anemia, unspecified 08/25/2024 Activ e I25.10 Atherosclerotic hear t disease of [place] coronary artery without angina pectoris 08/25/2024 Active [...] weight Temperature SpO2 Blood Sugar Pulse Respirations 63473 004 20139 8 67.00 mm[Hg] - Sitting 145.00 mm[Hg] - Sitting 98.50 Forehead Scan 96.00 % 81.00/ min 16.00/min 64996 004 70125 2 67.00 mm[Hg] - Sitting 145.00 mm[Hg] - Sitting 98.50 Tympanic 81.00/ min 16.00/min 18803 004 86184 5 56.00 mm[Hg] - Sitting 142.00 mm[Hg] - Sitting 136.40 NI 100.20 Tympanic 96.00 % 92.00/ min 18.00/min 19524 004 72695 6 51009 004 18104 4 143.00 mg/dL 46828 004 20775 0 97.80 Tympanic 38515 005 16479 7 60.00 mm[Hg] - Sitting 140.00 mm[Hg] - Sitting 98.00 Tympanic 84.00/ min 18.00/min 13245 005 88896 0 63.00 mm[Hg] - Sitting 141.00 mm[Hg] - Sitting 98.20 Tympanic 92.00 % 63.00/ min 16.00/min 14908 005 71492 8 69.00 mm[Hg] - Sitting 106.00 mm[Hg] - Sitting 97.20 Tympanic 93725 005 03625 7 69.00/ min 16.00/min 60880 005 49166 3 69.00 mm[Hg] - Sitting 106.00 mm[Hg] - Sitting 98.20 Tympanic 69.00/ min 16.00/min 23783 005 43193 1 367.00 mg/dL 04329 005 69250 2 97.20 Tympanic 90486 005 96951 4 97.20 Tympanic 21486 005 18320 0 69.00 mm[Hg] - Sitting 106.00 mm[Hg] - Sitting 69.00/ min 27173 005 15531 3 452.00 mg/dL 63499 005 38204 3 452.00 mg/dL 64285 005 22893 5 352.00 mg/dL 68600 005 36361 3 352.00 mg/dL 81771 005 24703 7 98.20 Tympanic 95050 005 34163 3 101.00 mg/dL 51840 005 53641 8 101.00 mg/dL 42282 006 99617 4 66.00 mm[Hg] - Sitting 107.00 mm[Hg] - Sitting 98.00 Tympanic 66.00/ min 18.00/min 34522 006 03125 0 62.00 mm[Hg] - Sitting 162.00 mm[Hg] - Sitting 98.20 Tympanic 96.00 % 60.00/ min 16.00/min 22304 006 48660 4 62.00 mm[Hg] - Sitting 162.00 mm[Hg] - Sitting 98.00 Tympanic 70.00/ min 18.00/min 45496 006 04291 8 62.00 mm[Hg] - Sitting 162.00 mm[Hg] - Sitting 98.20 Tympanic 70.00/ min 18.00/min 86765 006 52394 2 66.00 mm[Hg] - Sitting 132.00 mm[Hg] - Sitting 98.60 Tympanic 74.00/ min 16.00/min 70535 006 73225 5 159.00 mg/dL 32665 006 51943 1 159.00 mg/dL 29607 006 67582 8 98.00 Tympanic 00041 006 04690 2 62.00 mm[Hg] - Sitting 162.00 mm[Hg] - Sitting 70.00/ min 41237 006 19875 7 264.00 mg/dL 14014 006 18044 7 264.00 mg/dL 91304 006 20314 4 196.00 mg/dL 66793 006 40553 3 98.20 Tympanic 55984 006 91022 6 271.00 mg/dL 63072 007 26214 3 97.20 Tympanic 93380 007 78522 2 63.00 mm[Hg] - Sitting 132.00 mm[Hg] - Sitting 98.50 Tympanic 94.00 % 66.00/ min 16.00/min 04446 007 70807 5 188.00 mg/dL 31993 007 53448 2 188.00 mg/dL 53148 007 26817 2 188.00 mg/dL 11419 007 22522 7 97.20 Tympanic 36107 007 69795 6 97.20 Tympanic 42405 007 10049 5 67.00 mm[Hg] - Sitting 152.00 mm[Hg] - Sitting 68.00/ min 73251 007 60820 0 141.00 mg/dL 50363 007 57354 3 141.00 mg/dL 54298 007 60834 1 366.00 mg/dL 34589 007 48721 7 366.00 mg/dL 12835 007 96307 7 98.00 Tympanic 00633 007 88666 6 324.00 mg/dL 05333 007 12740 3 98.00 Tympanic 76330 007 16053 7 324.00 mg/dL 52570 008 97849 0 98.00 Tympanic 52865 008 42015 2 97.90 Tympanic 19388 008 41259 0 98.20 Tympanic 53301 008 98910 0 73.00 mm[Hg] - Sitting 156.00 mm[Hg] - Sitting 98.60 Tympanic 99.00 % 66.00/ min 20.00/min 46713 008 18541 5 137.00 mg/dL 70033 008 25681 7 137.00 mg/dL 06589 008 98591 2 97.90 Tympanic 24593 008 71230 1 137.00 mg/dL 85362 008 80280 8 97.90 Tympanic 73910 008 60721 5 67.00 mm[Hg] - Sitting 124.00 /min 14914 008 30353 6 212.00 mg/dL 46532 008 01072 6 212.00 mg/dL 02307 008 46924 9 317.00 mg/dL 83101 008 64508 4 317.00 mg/dL 19398 008 35030 8 252.00 mg/dL 88464 008 07824 0 98.70 Tympanic 04366 008 93650 7 252.00 mg/dL 48519 008 09318 3 98.70 Tympanic 94689 009 35637 9 98.70 Tympanic 55447 009 45111 3 98.20 Tympanic 04327 009 51218 5 98.40 Tympanic 57240 009 75053 5 57.00 mm[Hg] - Sitting 129.00 mm[Hg] - Sitting 98.30 Tympanic 97.00 % 65.00/ min 18.00/min 84546 009 34184 1 255.00 mg/dL 88080 009 43805 4 255.00 mg/dL 35920 009 91483 5 98.20 Tympanic 41584 009 41074 0 255.00 mg/dL 42457 009 73542 0 98.20 Tympanic 10230 009 23533 4 63.00 mm[Hg] - Lying Down 102.00 mm[Hg] - Lying Down 58.00/ min 99188 009 02081 0 167.00 mg/dL 60357 009 63134 1 167.00 mg/dL 46661 009 62314 2 164.00 mg/dL 29320 009 77886 1 164.00 mg/dL 40329 009 50857 5 208.00 mg/dL 76426 010 24843 3 98.40 Tympanic 27620 010 42455 5 98.40 Tympanic 65769 010 31430 7 66 NI 04362 010 81543 4 60.00 mm[Hg] - Sitting 143.00 mm[Hg] - Sitting 98.90 Tympanic 98.00 % 67.00/ min 18.00/min 49717 010 35480 2 214.00 mg/dL 18588 010 28381 0 214.00 mg/dL 23870 010 30419 7 214.00 mg/dL 00994 010 92354 6 64.00 mm[Hg] - Sitting 110.00 mm[Hg] - Sitting 72.00/ min 82797 010 72041 7 98.40 Tympanic 38892 010 31378 1 212.00 mg/dL 97869 010 40190 2 212.00 mg/dL 67252 010 50637 1 115.00 mg/dL 68559 010 73348 0 115.00 mg/dL 35959 010 09438 4 98.50 Tympanic 28795 010 44835 4 150.00 mg/dL 82679 010 72143 0 150.00 mg/dL 75588 011 38417 9 98.60 Tympanic 61660 011 10470 1 67.00 mm[Hg] - Sitting 144.00 mm[Hg] - Sitting 98.20 Tympanic 98.00 % 61.00/ min 18.00/min 28807 011 34933 7 290.00 mg/dL 09745 011 68157 2 290.00 mg/dL 92393 011 11757 2 290.00 mg/dL 43120 011 26394 7 54.00 mm[Hg] - Sitting 136.00 mm[Hg] - Sitting 101.00 /min 50294 011 93839 7 98.60 Tympanic 53791 011 28016 5 240.00 mg/dL 99226 011 86310 1 240.00 mg/dL 82615 011 03948 1 156.00 mg/dL 17327 011 93049 9 156.00 mg/dL 66312 011 43795 0 97.80 Tympanic 40202 011 14430 8 343.00 mg/dL 28303 012 43656 9 97.90 Tympanic 68020 012 50422 2 466.00 mg/dL 15104 012 51696 1 466.00 mg/dL 62919 012 72131 3 466.00 mg/dL 86149 012 51088 8 97.90 Tympanic 73587 012 16953 8 56.00 mm[Hg] - Sitting 96.00 mm[Hg] - Sitting 61.00/ min 09560 012 33503 7 350.00 mg/dL 24103 012 58679 5 350.00 mg/dL 84207 012 98761 6 111.00 mg/dL 04650 012 64535 0 111.00 mg/dL 23115 012 74213 5 98.40 Tympanic 08966 012 72181 6 114.00 mg/dL 09459 013 22798 4 74.00 mm[Hg] - Sitting 112.00 mm[Hg] - Sitting 98.40 Tympanic 70.00/ min 18.00/min 58005 013 54327 8 244.00 mg/dL 54633 013 50644 7 244.00 mg/dL 42677 013 44061 1 244.00 mg/dL 08305 013 41524 1 98.20 Tympanic 00753 013 88351 7 72.00 mm[Hg] - Sitting 119.00 mm[Hg] - Sitting 76.00/ min 25373 013 64262 7 253.00 mg/dL 06751 013 55341 4 253.00 mg/dL 51609 013 40275 9 156.00 mg/dL 86331 013 68001 5 156.00 mg/dL 22628 013 98781 4 97.90 Tympanic 36927 013 34644 5 189.00 mg/dL 17472 014 08829 9 98.10 Tympanic 04941 014 83945 0 61.00 mm[Hg] - Sitting 139.00 mm[Hg] - Sitting 98.20 Forehead Scan 99.00 % 66.00/ min 18.00/min 99225 014 87744 3 169.00 mg/dL 22104 014 32067 3 98.10 Tympanic 11483 014 18242 3 75.00 mm[Hg] - Sitting 121.00 mm[Hg] - Sitting 71.00/ min 70865 014 33334 9 221.00 mg/dL 90201 014 72330 9 62.00 mg/dL 02293 014 54198 5 62.00 mg/dL 40248 014 28358 8 156.00 mg/dL 84559 014 93969 6 98.10 Tympanic 55894 014 00492 7 156.00 mg/dL 80806 015 69799 4 72812 015 15161 7 62.00 mm[Hg] - Sitting 142.00 mm[Hg] - Sitting 98.20 Tympanic 99.00 % 67.00/ min 18.00/min 72369 015 80246 9 120.00 mg/dL 77904 015 45217 7 98.00 Tympanic 55137 015 95221 2 82.00 mm[Hg] - Sitting 119.00 /min 90935 015 53604 9 110.00 mg/dL 69035 015 94895 6 104.00 mg/dL 63886 015 01908 0 100.00 mg/dL 47044 015 57663 2 98.10 Tympanic 16967 015 54943 6 100.00 mg/dL 36363 016 95261 2 67.00 mm[Hg] - Sitting 147.00 mm[Hg] - Sitting 99.00 Tympanic 99.00 % 78.00/ min 20.00/min 59930 016 61830 5 158.00 mg/dL 31878 016 70947 1 158.00 mg/dL 63130 016 46011 2 158.00 mg/dL 48969 016 81327 0 66.00 mm[Hg] - Sitting 121.00 mm[Hg] - Sitting 74.00/ min 16498 016 05940 1 97.00 mg/dL 40206 016 79533 5 97.00 mg/dL 51825 016 96207 4 78.00 mg/dL 66314 016 90684 6 78.00 mg/dL 95989 016 89209 5 248.00 mg/dL 33792 016 35745 8 248.00 mg/dL 66516 017 58830 3 54.00 mm[Hg] - Sitting 142.00 mm[Hg] - Sitting 98.30 Tympanic 99.00 % 76.00/ min 18.00/min 88926 017 43447 4 267.00 mg/dL 57042 017 18808 6 73.00 mm[Hg] - Sitting 109.00 mm[Hg] - Sitting 70.00/ min 80658 017 10230 1 184.00 mg/dL 92400 017 76548 5 184.00 mg/dL 80452 017 63348 9 248.00 mg/dL 64230 017 02230 8 299.00 mg/dL 04454 017 79478 3 299.00 mg/dL 21123 018 77954 7 50.00 mm[Hg] - Sitting 125.00 mm[Hg] - Sitting 98.30 Tympanic 98.00 % 76.00/ min 16.00/min 18351 018 99043 3 168.00 mg/dL 31503 018 65591 0 75.00 mm[Hg] - Sitting 121.00 mm[Hg] - Sitting 70.00/ min 38413 018 95295 7 264.00 mg/dL 91221 018 57269 6 132.00 mg/dL 15855 018 38960 6 154.00 mg/dL 34203 018 70345 6 154.00 mg/dL 40070 019 81697 4 63.00 mm[Hg] - Sitting 147.00 mm[Hg] - Sitting 98.50 Tympanic 99.00 % 69.00/ min 18.00/min 73544 019 12322 9 159.00 mg/dL 11161 019 21448 8 73.00 mm[Hg] - Sitting 110.00 mm[Hg] - Sitting 72.00/ min 58040 019 78256 4 191.00 mg/dL 47490 019 68795 8 70.00 mg/dL 20744 019 53128 4 70.00 mg/dL 37352 019 98520 6 198.00 mg/dL 68390 019 07202 0 198.00 mg/dL 50682 020 76693 2 59.00 mm[Hg] - Sitting 131.00 mm[Hg] - Sitting 98.90 Tympanic 99.00 % 69.00/ min 18.00/min 65431 020 85856 7 299.00 mg/dL 84190 020 03077 0 62.00 mm[Hg] - Sitting 132.00 mm[Hg] - Sitting 68.00/ min 00841 020 21776 3 299.00 mg/dL 57788 020 63313 3 299.00 mg/dL 15131 020 04020 9 220.00 mg/dL 35354 020 44618 1 220.00 mg/dL 06745 020 58779 1 270.00 mg/dL 43233 020 49541 4 270.00 mg/dL 00208 020 12736 9 143.00 mg/dL 58575 020 04890 4 143.00 mg/dL 34524 021 05456 0 59.00 mm[Hg] - Sitting 121.00 mm[Hg] - Sitting 98.40 Forehead Scan 98.00 % 70.00/ min 16.00/min 32619 021 93922 0 140.00 mg/dL 58375 021 11881 0 67.00 mm[Hg] - Sitting 130.00 mm[Hg] - Sitting 68.00/ min 80049 021 11608 8 140.00 mg/dL 34983 021 27133 6 140.00 mg/dL 88450 021 17779 8 156.00 mg/dL 35013 021 38742 1 156.00 mg/dL 52647 021 40360 5 146.00 mg/dL 48536 021 38172 4 146.00 mg/dL 93836 021 59459 5 183.00 mg/dL 72658 021 62395 2 183.00 mg/dL 56368 022 84934 3 76469 022 71686 1 43.00 mm[Hg] - Sitting 113.00 mm[Hg] - Sitting 97.80 Tympanic 97.00 % 64.00/ min 18.00/min 77593 022 64408 6 270.00 mg/dL 51468 022 47941 5 68.00 mm[Hg] - Sitting 122.00 mm[Hg] - Sitting 67.00/ min 40559 022 22832 9 270.00 mg/dL 22451 022 07115 4 270.00 mg/dL 92331 022 25299 4 207.00 mg/dL 50582 022 29446 8 207.00 mg/dL 93037 022 34102 9 217.00 mg/dL 70488 022 19622 2 217.00 mg/dL 18322 022 45202 0 192.00 mg/dL 26938 022 79609 9 192.00 mg/dL 26413 023 03102 8 48.00 mm[Hg] - Sitting 116.00 mm[Hg] - Sitting 98.50 Tympanic 97.00 % 63.00/ min 18.00/min 48962 023 41942 9 68.00 mm[Hg] - Sitting 131.00 mm[Hg] - Sitting 68.00/ min 43289 023 97261 8 235.00 mg/dL 72194 023 92040 4 235.00 mg/dL 27519 023 67908 0 235.00 mg/dL 03269 023 78323 0 199.00 mg/dL 62245 023 41551 7 199.00 mg/dL 92997 023 06991 4 233.00 mg/dL 93548 023 11481 3 233.00 mg/dL 94871 023 09415 6 229.00 mg/dL 58911 023 51518 4 229.00 mg/dL 04034 024 26648 3 58.00 mm[Hg] - Sitting 102.00 mm[Hg] - Sitting 58.00/ min 73789 024 34316 9 156.00 mg/dL 49482 024 26526 4 156.00 mg/dL 50035 024 75985 3 156.00 mg/dL 47880 024 69685 0 343.00 mg/dL 41863 024 28291 6 343.00 mg/dL 05508 024 17622 2 167.00 mg/dL 42739 024 74493 0 167.00 mg/dL 84370 024 74937 8 155.00 mg/dL 53311 024 75194 7 155.00 mg/dL 67168 025 43904 0 51.00 mm[Hg] - Lying Down 109.00 mm[Hg] - Lying Down 98.60 Tympanic 95.00 % 67.00/ min 20.00/min 50077 025 42856 0 60.00 mm[Hg] - Sitting 118.00 mm[Hg] - Sitting 98.30 Forehead Scan 98.00 % 68.00/ min 16.00/min 22949 025 22681 3 235.00 mg/dL 26392 025 98341 1 63.00 mm[Hg] - Sitting 110.00 mm[Hg] - Sitting 75.00/ min 87576 025 83051 9 295.00 mg/dL 56358 025 90711 4 94.00 mg/dL 62754 025 64372 1 132.00 mg/dL 13595 025 32916 2 132.00 mg/dL 17748 026 77730 8 50.00 mm[Hg] - Sitting 123.00 mm[Hg] - Sitting 98.50 Tympanic 95.00 % 66.00/ min 18.00/min 04769 026 68477 0 275.00 mg/dL 37427 026 19297 7 275.00 mg/dL 75684 026 84456 1 275.00 mg/dL 77410 026 80993 6 67.00 mm[Hg] - Sitting 123.00 mm[Hg] - Sitting 66.00/ min 95938 026 06426 3 187.00 mg/dL 81450 026 46300 5 187.00 mg/dL 65556 026 89180 0 167.00 mg/dL 79371 026 78456 8 167.00 mg/dL 14455 026 01935 6 387.00 mg/dL 66698 027 73050 7 53.00 mm[Hg] - Sitting 132.00 mm[Hg] - Sitting 98.60 Tympanic 97.00 % 64.00/ min 18.00/min 86498 027 23355 9 189.00 mg/dL 74255 027 60337 4 67.00 mm[Hg] - Sitting 118.00 mm[Hg] - Sitting 66.00/ min 59325 027 43978 2 189.00 mg/dL 68337 027 69786 7 189.00 mg/dL 41259 027 01885 1 105.00 mg/dL 82981 027 70023 8 105.00 mg/dL 34580 027 89450 4 223.00 mg/dL 89176 027 07423 9 223.00 mg/dL 93841 027 29494 9 164.00 mg/dL 49874 028 23451 0 68.00 mm[Hg] - Sitting 115.00 mm[Hg] - Sitting 98.60 Forehead Scan 96.00 % 71.00/ min 16.00/min 82084 028 43159 1 200.00 mg/dL 74767 028 63650 9 200.00 mg/dL 35858 028 33306 1 69.00 mm[Hg] - Sitting 122.00 mm[Hg] - Sitting 67.00/ min 76459 028 65261 3 200.00 mg/dL 27661 028 87783 0 117.00 mg/dL 59997 028 34353 0 117.00 mg/dL 79528 028 82633 1 114.00 mg/dL 64506 028 11792 7 114.00 mg/dL 92983 028 70985 0 179.00 mg/dL 68831 028 85579 8 179.00 mg/dL 39533 029 35894 4 44.00 mm[Hg] - Sitting 121.00 mm[Hg] - Sitting 98.30 Tympanic 97.00 % 65.00/ min 18.00/min 86934 029 53593 9 147.00 mg/dL 64599 029 19914 0 147.00 mg/dL 55261 029 49762 4 147.00 mg/dL 72360 029 63005 1 63.00 mm[Hg] - Sitting 118.00 mm[Hg] - Sitting 74.00/ min 65722 029 14227 2 278.00 mg/dL 50905 029 88966 3 278.00 mg/dL 43382 029 05921 1 241.00 mg/dL Immunizations Vaccine Date Status COVID-19 09/20/2023 Completed Influenza 09/14/2024 Completed Other 10/08/2023 Completed Shingles 05/27/2011 Completed Tetanus 04/13/2022 Completed TDaP 04/13/2022 Completed Shingles 2 10/05/2018 Completed
--- OUTSIDE RECORDS SUMMARY | 2024-10-03 10:54 | External Medical Summary | Continuity Of Care Document ---
Author Name Unknown Address [address] [id number] Organization [facility] () Care Team Providers Care Transmission Repairer Name Role Phone DO Machado Amy Primary Care Provider [phone] Allergies Allergy Reaction Start Date End Date [...] 3 0.1 mL 08/29 Inactiv e 2023 55757 25335 0 1 time Intrad ermal False Tubersol 5 tub. unit/0.1 mL intradermal injection solution [Tuberculin PPD] 0.1mL Intradermal 1 time For PPD 2nd Step Give 2nd Step PPD Day 1 and Read results Day 3 (schedule 7 days after 1st READ) 0.1mL 09/08 Inactiv e 2023 71531 93280 0 1 time Intrad ermal False [facility] - Nurse initials indicate verificatio n that [id number] vaccine was administere d by [facility] [...] order For Diabetes 08/25 Inactiv e 2023 55185 26108 9 4 times a day Subcut aneous False Aspirin 325 mg tablet [generic] 325 By Mouth Twice daily For Anticoagulati on 325 09/25 Active 2023 59599 68436 1 Twice daily By Mouth False Ferrous sulfate 325 mg (65 mg iron) tablet [generic] 325 By Mouth Once daily For anemia 325 2023 Active 2023 32517 58034 5 Once daily By Mouth False Linezolid 600 mg tablet [generic] 600 mg By Mouth Every 12 hours For MRSA INFECTION L BKA 600 mg 08/25 Inactiv e 2023 17610 81542 1 Every 12 hours By Mouth False Cefpodoxime 200 mg tablet [generic] 400 mg By Mouth Twice daily For MRSA INFECTION L BKA 400 mg 08/25 Inactiv e 2023 28439 42159 0 Twice daily By Mouth False Coenzyme Q10 100 mg tablet [generic] 100 mg By Mouth Once daily For SUPP 100 mg 2023 Active 2023 13338 65225 0 Once daily By Mouth False Levothyroxi ne 50 mcg tablet [generic] 50mcg By Mouth Once daily For hypothyroidis m 50mcg 2023 Active 2023 18598 59112 0 Once daily By Mouth False One A Day Men Complete 240 mcg-25 mcg-300 mcg tablet 1 tab By Mouth Once daily For supplement 1 tab 2023 Active 2023 67206 41676 1 Once daily By Mouth False Cholecalcif adalberto (vitamin D3) 50 mcg (2,000 unit) tablet [generic] 1 TAB By Mouth Once daily For SUPP 1 TAB 2023 Active 2023 66311 71440 1 Once daily By Mouth False Cetirizine 10 mg tablet [generic] 1 TAB By Mouth At bedtime For Allergies 1 TAB 2023 Active 2023 33123 08906 0 At bedtime By Mouth False Timolol maleate 0.25 % eye drops [generic] 1 drop Both Eyes Twice daily For glaucoma 1 drop 2023 Active 2023 84355 21639 5 Twice daily Both Eyes False Alendronate 35 mg tablet [generic] 35mg By Mouth Every week For SIADH 35mg 08/31 Inactiv e 2023 77642 45618 5 Every week By Mouth False Lantus Solostar U-100 Insulin 100 unit/mL (3 mL) subcutaneou s pen 18 units Subcutaneous Every morning For DIABETES 18 units 08/25 Inactiv e 2023 52274 79866 0 Every morning Subcut aneous False Lantus Solostar U-100 Insulin 100 unit/mL (3 mL) subcutaneou s pen 18 units Subcutaneous Every morning For DIABETES 18 units 2023 Active 2023 63402 17309 0 Every morning Subcut aneous False Linezolid 600 mg tablet [generic] 600 mg By Mouth Every 12 hours For MRSA INFECTION L BKA 600 mg 08/28 Inactiv e 2023 46163 84621 1 Every 12 hours By Mouth False [...] order For Diabetes 08/31 Inactiv e 2023 76139 83882 9 4 times a day Subcut aneous False Cefpodoxime 200 mg tablet [generic] 400 mg By Mouth Twice daily For MRSA INFECTION L BKA 400 mg 08/28 Inactiv e 2023 36922 77707 0 Twice daily By Mouth False Brimonidine 0.1 % eye drops [generic] 1 drop Both Eyes Twice daily For glaucoma 1 drop 2023 Active 2023 69328 84585 0 Twice daily Both Eyes False Metoprolol succinate ER 50 mg tablet,exte nded release 24 hr [generic] 50 mg By Mouth Once daily HOLD FOR SBP <100, or pulse <60 For HTN 50 mg 2023 Active 2023 12833 13404 1 Once daily By Mouth False Amlodipine 2.5 mg tablet [generic] 2.5 mg By Mouth Once daily For HTN 2.5 mg 2023 Active 2023 72420 48142 5 Once daily By Mouth False Docusate sodium 100 mg capsule [generic] 100mg By Mouth Twice daily as needed For constipation HOLD FOR LOOSE STOOLS 100mg 2023 Active 2023 83045 75621 1 Twice daily as needed By Mouth False Atorvastati n 40 mg tablet [generic] 40mg By Mouth Once daily For HDL 40mg 08/26 Inactiv e 2023 45243 46191 5 Once daily By Mouth False Tylenol 325 mg tablet 2 tabs By Mouth Every 4 hours as needed For Pain DO NOT EXCEED 3000 MG APAP/24 Hours 2 tabs 2023 Active 2023 67150 69709 0 Every 4 hours as needed By Mouth False Tylenol 325 mg tablet 2 tabs By Mouth Every 4 hours as needed For Fever >100 DO NOT EXCEED 3000 MG APAP/24 Hours 2 tabs 2023 Active 2023 19586 41499 0 Every 4 hours as needed By Mouth False Dulcolax (bisacodyl) 10 mg rectal suppository One Suppository per rectum PRN if Milk of Magnisia ineffective. Give on day 5 of no BM 1 sup 2023 Active 2023 80733 08547 1 Daily as needed Rectal False Fleet Enema 19 gram-7 gram/118 mL Administer per rectum PRN one time if dulcolax suppository not effective. Give on day 6 of no BM 1 2023 Active 2023 85063 56520 6 Daily as needed Rectal False Dextrose 50 % in water (D50W) intravenous solution [generic] Dextrose 50% evonne 20-50 ml (slow push) Intravenous if Glucagon not effective after 15 minutes. CALL 911 for ED Evaluation. 50% evonne 2023 Active 2023 80524 94643 9 Intrav enous False Glucagon (HCl) Emergency Kit 1 mg solution for injection Administer Glucagon 1 mg Intramuscular if 15 minutes after GLucose Gel is administered Glucose remains less than 70 1 mg 2023 Active 2023 91535 79164 2 Intram uscula r False Glucose Gel 40 % oral gel [Dextrose] PRN If resident is unable to swallow (with or without symptoms) and Glucose results less than 70 give GLucose 40% Gel 1 tube orally - Recheck Glucose 15 minutes after administratio n. 1 tube 2023 Active 2023 46977 15178 8 By Mouth False Milk of Magnesia 400 mg/5 mL oral suspension [Magnesium hydroxide] PRN 30ml By Mouth Daily as needed for constipation one time daily if no BM, on day 4 of no BM (PRN refer to instructions) For Constipation 30 mL 2023 Active 2023 01744 85358 6 Daily as needed By Mouth False Atorvastati n 40 mg tablet [generic] 08/26 Inactiv e 2023 66087 87713 5 Atorvastati n 40 mg tablet [generic] 40mg By Mouth Once daily For HDL 40mg 2023 Active 2023 71506 47368 5 Once daily By Mouth False Insulin aspart (U-100) 100 unit/mL (3 mL) subcutaneou s pen [generic] 15 units Subcutaneous 1 time For dm 15 units 08/26 Inactiv e 2023 17937 80829 5 1 time Subcut aneous False Humalog KwikPen (U-100) Insulin 100 unit/mL subcutaneou s 15 units Subcutaneous 1 time For dm 15 units 08/27 Inactiv e 2023 56684 89641 9 1 time Subcut aneous False Linezolid 600 mg tablet [generic] 600 mg By Mouth Every 12 hours For MRSA INFECTION L BKA 600 mg 09/06 Inactiv e 2023 34505 40776 1 Every 12 hours By Mouth False Cefpodoxime 200 mg tablet [generic] 400 mg By Mouth Twice daily For MRSA INFECTION L BKA 400 mg 08/31 Inactiv e 2023 25045 02443 0 Twice daily By Mouth False Senna 8.6 mg tablet 8.6 mg By Mouth Once daily For Constipation 8.6 mg 09/07 Inactiv e 2023 15631 68242 1 Once daily By Mouth False Humalog [...] . Per Carb 09/19 Inactiv e 2023 73839 87992 9 4 times a day Subcut aneous False Alendronate 35 mg tablet [generic] 08/31 Inactiv e 2023 85856 59352 5 Problems Code Description Start Date End Date Status D64.9 Anemia, unspecified 08/25/2024 Activ e I25.10 Atherosclerotic hear t disease of [place] coronary artery without angina pectoris 08/25/2024 Active [...] weight Temperature SpO2 Blood Sugar Pulse Respirations 04867 8 67.00 mm[Hg] - Sitting 145.00 mm[Hg] - Sitting 98.50 Forehead Scan 96.00 % 81.00/ min 16.00/min 97332 2 67.00 mm[Hg] - Sitting 145.00 mm[Hg] - Sitting 98.50 Tympanic 81.00/ min 16.00/min 86829 004 27457 5 56.00 mm[Hg] - Sitting 142.00 mm[Hg] - Sitting 136.40 NI 100.20 Tympanic 96.00 % 92.00/ min 18.00/min 44359 004 28382 6 71167 004 05640 4 143.00 mg/dL 32314 004 57734 0 97.80 Tympanic 93399 005 74612 7 60.00 mm[Hg] - Sitting 140.00 mm[Hg] - Sitting 98.00 Tympanic 84.00/ min 18.00/min 41058 005 40392 0 63.00 mm[Hg] - Sitting 141.00 mm[Hg] - Sitting 98.20 Tympanic 92.00 % 63.00/ min 16.00/min 51692 005 62554 8 69.00 mm[Hg] - Sitting 106.00 mm[Hg] - Sitting 97.20 Tympanic 89290 005 62104 7 69.00/ min 16.00/min 40035 005 63191 3 69.00 mm[Hg] - Sitting 106.00 mm[Hg] - Sitting 98.20 Tympanic 69.00/ min 16.00/min 16017 005 33000 1 367.00 mg/dL 48318 005 81690 2 97.20 Tympanic 98113 005 18719 4 97.20 Tympanic 49281 005 76624 0 69.00 mm[Hg] - Sitting 106.00 mm[Hg] - Sitting 69.00/ min 03228 005 41450 3 452.00 mg/dL 31406 005 43263 3 452.00 mg/dL 75342 005 95340 5 352.00 mg/dL 41548 005 19867 3 352.00 mg/dL 10399 005 41904 7 98.20 Tympanic 05999 005 19909 3 101.00 mg/dL 05587 005 41204 8 101.00 mg/dL 43299 006 17048 4 66.00 mm[Hg] - Sitting 107.00 mm[Hg] - Sitting 98.00 Tympanic 66.00/ min 18.00/min 10077 006 98411 0 62.00 mm[Hg] - Sitting 162.00 mm[Hg] - Sitting 98.20 Tympanic 96.00 % 60.00/ min 16.00/min 54610 006 76080 4 62.00 mm[Hg] - Sitting 162.00 mm[Hg] - Sitting 98.00 Tympanic 70.00/ min 18.00/min 72422 006 54279 8 62.00 mm[Hg] - Sitting 162.00 mm[Hg] - Sitting 98.20 Tympanic 70.00/ min 18.00/min 01017 006 43505 2 66.00 mm[Hg] - Sitting 132.00 mm[Hg] - Sitting 98.60 Tympanic 74.00/ min 16.00/min 79383 006 28798 5 159.00 mg/dL 59120 006 19458 1 159.00 mg/dL 11350 006 28333 8 98.00 Tympanic 40579 006 51053 2 62.00 mm[Hg] - Sitting 162.00 mm[Hg] - Sitting 70.00/ min 52834 006 45601 7 264.00 mg/dL 33377 006 79347 7 264.00 mg/dL 01442 006 98199 4 196.00 mg/dL 61361 006 25198 3 98.20 Tympanic 12815 006 85051 6 271.00 mg/dL 48327 007 13205 3 97.20 Tympanic 80225 007 52145 2 63.00 mm[Hg] - Sitting 132.00 mm[Hg] - Sitting 98.50 Tympanic 94.00 % 66.00/ min 16.00/min 43004 007 69429 5 188.00 mg/dL 06547 007 73510 2 188.00 mg/dL 06670 007 79421 2 188.00 mg/dL 08390 007 23594 7 97.20 Tympanic 50591 007 03077 6 97.20 Tympanic 27259 007 36516 5 67.00 mm[Hg] - Sitting 152.00 mm[Hg] - Sitting 68.00/ min 21473 007 50461 0 141.00 mg/dL 55984 007 72321 3 141.00 mg/dL 33980 007 97168 1 366.00 mg/dL 11234 007 50466 7 366.00 mg/dL 33489 007 42493 7 98.00 Tympanic 38835 007 09694 6 324.00 mg/dL 05793 007 05287 3 98.00 Tympanic 33036 007 30583 7 324.00 mg/dL 97792 008 85229 0 98.00 Tympanic 27638 008 02824 2 97.90 Tympanic 54715 008 21063 0 98.20 Tympanic 64314 008 80811 0 73.00 mm[Hg] - Sitting 156.00 mm[Hg] - Sitting 98.60 Tympanic 99.00 % 66.00/ min 20.00/min 86794 008 73137 5 137.00 mg/dL 49377 008 47927 7 137.00 mg/dL 84741 008 55880 2 97.90 Tympanic 15603 008 96078 1 137.00 mg/dL 34962 008 89413 8 97.90 Tympanic 32461 008 48642 5 67.00 mm[Hg] - Sitting 124.00 /min 68675 008 33385 6 212.00 mg/dL 42498 008 39986 6 212.00 mg/dL 74088 008 22397 9 317.00 mg/dL 56160 008 29854 4 317.00 mg/dL 57932 008 92944 8 252.00 mg/dL 69396 008 65921 0 98.70 Tympanic 31889 008 63657 7 252.00 mg/dL 33963 008 67416 3 98.70 Tympanic 13168 009 84898 9 98.70 Tympanic 75791 009 69986 3 98.20 Tympanic 34614 009 21204 5 98.40 Tympanic 48180 009 97437 5 57.00 mm[Hg] - Sitting 129.00 mm[Hg] - Sitting 98.30 Tympanic 97.00 % 65.00/ min 18.00/min 73166 009 58252 1 255.00 mg/dL 61781 009 98184 4 255.00 mg/dL 89245 009 38802 5 98.20 Tympanic 06166 009 27872 0 255.00 mg/dL 11543 009 62977 0 98.20 Tympanic 10730 009 34949 4 63.00 mm[Hg] - Lying Down 102.00 mm[Hg] - Lying Down 58.00/ min 17517 009 21996 0 167.00 mg/dL 62479 009 87902 1 167.00 mg/dL 32474 009 19454 2 164.00 mg/dL 56131 009 50123 1 164.00 mg/dL 70890 009 44916 5 208.00 mg/dL 91141 010 21993 3 98.40 Tympanic 49903 010 05091 5 98.40 Tympanic 03719 010 12091 7 66 [place] [address]79 010 94531 4 60.00 mm[Hg] - Sitting 143.00 mm[Hg] - Sitting 98.90 Tympanic 98.00 % 67.00/ min 18.00/min 03776 010 48946 2 214.00 mg/dL 68066 010 07794 0 214.00 mg/dL 14874 010 31809 7 214.00 mg/dL 15614 010 59823 6 64.00 mm[Hg] - Sitting 110.00 mm[Hg] - Sitting 72.00/ min 51231 010 79368 7 98.40 Tympanic 88086 010 83927 1 212.00 mg/dL 64463 010 80584 2 212.00 mg/dL 02335 010 51060 1 115.00 mg/dL 08182 010 86634 0 115.00 mg/dL 84641 010 09215 4 98.50 Tympanic 03642 010 35718 4 150.00 mg/dL 57515 010 84820 0 150.00 mg/dL 69337 011 36168 9 98.60 Tympanic 03353 011 93472 1 67.00 mm[Hg] - Sitting 144.00 mm[Hg] - Sitting 98.20 Tympanic 98.00 % 61.00/ min 18.00/min 55996 011 94996 7 290.00 mg/dL 70533 011 04161 2 290.00 mg/dL 62289 011 08795 2 290.00 mg/dL 65856 011 34700 7 54.00 mm[Hg] - Sitting 136.00 mm[Hg] - Sitting 101.00 /min 00609 011 64280 7 98.60 Tympanic 97477 011 40551 5 240.00 mg/dL 51305 011 45466 1 240.00 mg/dL 84873 011 86678 1 156.00 mg/dL 84099 011 81381 9 156.00 mg/dL 10102 011 55323 0 97.80 Tympanic 17788 011 50654 8 343.00 mg/dL 32579 012 09152 9 97.90 Tympanic 44402 012 86510 2 466.00 mg/dL 38515 012 61846 1 466.00 mg/dL 44565 012 41544 3 466.00 mg/dL 18157 012 52837 8 97.90 Tympanic 51034 012 78888 8 56.00 mm[Hg] - Sitting 96.00 mm[Hg] - Sitting 61.00/ min 06708 012 45651 7 350.00 mg/dL 83691 012 64652 5 350.00 mg/dL 84946 012 41018 6 111.00 mg/dL 67084 012 61736 0 111.00 mg/dL 19263 012 43681 5 98.40 Tympanic 10526 012 83921 6 114.00 mg/dL 42135 013 34232 4 74.00 mm[Hg] - Sitting 112.00 mm[Hg] - Sitting 98.40 Tympanic 70.00/ min 18.00/min 69584 013 70521 8 244.00 mg/dL 45882 013 58276 7 244.00 mg/dL 21086 013 20717 1 244.00 mg/dL 95396 013 23960 1 98.20 Tympanic 73794 013 04965 7 72.00 mm[Hg] - Sitting 119.00 mm[Hg] - Sitting 76.00/ min 16452 013 40147 7 253.00 mg/dL 84858 013 47904 4 253.00 mg/dL 93697 013 19245 9 156.00 mg/dL 69666 013 72356 5 156.00 mg/dL 26607 013 82723 4 97.90 Tympanic 22067 013 36597 5 189.00 mg/dL 51760 014 97850 9 98.10 Tympanic 85586 014 29467 0 61.00 mm[Hg] - Sitting 139.00 mm[Hg] - Sitting 98.20 Forehead Scan 99.00 % 66.00/ min 18.00/min 91713 014 85326 3 169.00 mg/dL 54572 014 14969 3 98.10 Tympanic 15769 014 67307 3 75.00 mm[Hg] - Sitting 121.00 mm[Hg] - Sitting 71.00/ min 13147 014 91264 9 221.00 mg/dL 93930 014 60899 9 62.00 mg/dL 84565 014 74703 5 62.00 mg/dL 31654 014 95427 8 156.00 mg/dL 37005 014 82751 6 98.10 Tympanic 23920 014 90824 7 156.00 mg/dL 75291 015 44330 4 13139 015 96785 7 62.00 mm[Hg] - Sitting 142.00 mm[Hg] - Sitting 98.20 Tympanic 99.00 % 67.00/ min 18.00/min 65837 015 95440 9 120.00 mg/dL 24039 015 91866 7 98.00 Tympanic 16227 015 47558 2 82.00 mm[Hg] - Sitting 119.00 /min 45890 015 50606 9 110.00 mg/dL 04913 015 04159 6 104.00 mg/dL 21116 015 67427 0 100.00 mg/dL 42096 015 57248 2 98.10 Tympanic 85196 015 11760 6 100.00 mg/dL 66598 016 86142 2 67.00 mm[Hg] - Sitting 147.00 mm[Hg] - Sitting 99.00 Tympanic 99.00 % 78.00/ min 20.00/min 00378 016 82294 5 158.00 mg/dL 15994 016 38269 1 158.00 mg/dL 50541 016 53470 2 158.00 mg/dL 44308 016 42778 0 66.00 mm[Hg] - Sitting 121.00 mm[Hg] - Sitting 74.00/ min 62402 016 61651 1 97.00 mg/dL 13912 016 71127 5 97.00 mg/dL 88463 016 11608 4 78.00 mg/dL 39508 016 22098 6 78.00 mg/dL 42793 016 58639 5 248.00 mg/dL 87842 016 70177 8 248.00 mg/dL 15679 017 25285 3 54.00 mm[Hg] - Sitting 142.00 mm[Hg] - Sitting 98.30 Tympanic 99.00 % 76.00/ min 18.00/min 82233 017 24821 4 267.00 mg/dL 85971 017 12728 6 73.00 mm[Hg] - Sitting 109.00 mm[Hg] - Sitting 70.00/ min 60855 017 38923 1 184.00 mg/dL 87138 017 11916 5 184.00 mg/dL 95999 017 75309 9 248.00 mg/dL 95229 017 48252 8 299.00 mg/dL 50384 017 40470 3 299.00 mg/dL 98669 018 34328 7 50.00 mm[Hg] - Sitting 125.00 mm[Hg] - Sitting 98.30 Tympanic 98.00 % 76.00/ min 16.00/min 42946 018 78190 3 168.00 mg/dL 56862 018 70258 0 75.00 mm[Hg] - Sitting 121.00 mm[Hg] - Sitting 70.00/ min 44093 018 25446 7 264.00 mg/dL 47151 018 29268 6 132.00 mg/dL 00725 018 88550 6 154.00 mg/dL 90134 018 19531 6 154.00 mg/dL 42470 019 80732 4 63.00 mm[Hg] - Sitting 147.00 mm[Hg] - Sitting 98.50 Tympanic 99.00 % 69.00/ min 18.00/min 22966 019 33465 9 159.00 mg/dL 86074 019 07174 8 73.00 mm[Hg] - Sitting 110.00 mm[Hg] - Sitting 72.00/ min 59533 019 21894 4 191.00 mg/dL 82818 019 47621 8 70.00 mg/dL 89399 019 04344 4 70.00 mg/dL 31760 019 51680 6 198.00 mg/dL 79551 019 19877 0 198.00 mg/dL 43038 020 88625 2 59.00 mm[Hg] - Sitting 131.00 mm[Hg] - Sitting 98.90 Tympanic 99.00 % 69.00/ min 18.00/min 15373 020 19229 7 299.00 mg/dL 04204 020 42204 0 62.00 mm[Hg] - Sitting 132.00 mm[Hg] - Sitting 68.00/ min 38538 020 71732 3 299.00 mg/dL 91069 020 58431 3 299.00 mg/dL 31800 020 88167 9 220.00 mg/dL 40497 020 50049 1 220.00 mg/dL 10582 020 73513 1 270.00 mg/dL 80303 020 70908 4 270.00 mg/dL 97992 020 01198 9 143.00 mg/dL 93270 020 79867 4 143.00 mg/dL 43546 021 17595 0 59.00 mm[Hg] - Sitting 121.00 mm[Hg] - Sitting 98.40 Forehead Scan 98.00 % 70.00/ min 16.00/min 28610 021 46873 0 140.00 mg/dL 58354 021 16491 0 67.00 mm[Hg] - Sitting 130.00 mm[Hg] - Sitting 68.00/ min 79765 021 50919 8 140.00 mg/dL 47533 021 88477 6 140.00 mg/dL 76692 021 43057 8 156.00 mg/dL 40547 021 32909 1 156.00 mg/dL 24007 021 15003 5 146.00 mg/dL 83331 021 06406 4 146.00 mg/dL 35496 021 10026 5 183.00 mg/dL 56968 021 82605 2 183.00 mg/dL 32858 022 97628 3 77754 022 80650 1 43.00 mm[Hg] - Sitting 113.00 mm[Hg] - Sitting 97.80 Tympanic 97.00 % 64.00/ min 18.00/min 83118 022 48167 6 270.00 mg/dL 16835 022 37830 5 68.00 mm[Hg] - Sitting 122.00 mm[Hg] - Sitting 67.00/ min 98921 022 13764 9 270.00 mg/dL 64097 022 17068 4 270.00 mg/dL 03834 022 34708 4 207.00 mg/dL 85200 022 00803 8 207.00 mg/dL 53153 022 02458 9 217.00 mg/dL 49542 022 10561 2 217.00 mg/dL 74734 022 52116 0 192.00 mg/dL 67714 022 92134 9 192.00 mg/dL 06010 023 92911 8 98.50 Tympanic 63.00/ min 18.00/min Immunizations Vaccine Date Status COVID-19 09/20/2023 Completed Influenza 09/14/2024 Completed Other 10/08/2023 Completed Shingles 05/27/2011 Completed Tetanus 04/13/2022 Completed TDaP 04/13/2022 Completed Shingles 2 10/05/2018 Completed
--- OUTSIDE RECORDS SUMMARY | 2024-10-03 10:54 | External Medical Summary | Continuity Of Care Document ---
Author Name Unknown Address [id number] [facility] () Care Team Providers [facility] [employer] Name Role Phone DO Machado Amy Primary Care Provider [phone] Allergies Allergy Reaction Start Date End Date [...] 3 0.1 mL 08/29 Inactiv e 2023 23915 30337 0 1 time Intrad ermal False Tubersol 5 tub. unit/0.1 mL intradermal injection solution [Tuberculin PPD] 0.1mL Intradermal 1 time For PPD 2nd Step Give 2nd Step PPD Day 1 and Read results Day 3 (schedule 7 days after 1st READ) 0.1mL 09/08 Inactiv e 2023 17088 70916 0 1 time Intrad ermal False [facility] - Nurse initials indicate verificatio n that [id number] vaccine was administere d by [facility] [...] order For Diabetes 08/25 Inactiv e 2023 39598 16785 9 4 times a day Subcut aneous False Aspirin 325 mg tablet [generic] 325 By Mouth Twice daily For Anticoagulati on 325 09/25 Active 2023 95158 28703 1 Twice daily By Mouth False Ferrous sulfate 325 mg (65 mg iron) tablet [generic] 325 By Mouth Once daily For anemia 325 2023 Active 2023 62865 74029 5 Once daily By Mouth False Linezolid 600 mg tablet [generic] 600 mg By Mouth Every 12 hours For MRSA INFECTION L BKA 600 mg 08/25 Inactiv e 2023 60625 27132 1 Every 12 hours By Mouth False Cefpodoxime 200 mg tablet [generic] 400 mg By Mouth Twice daily For MRSA INFECTION L BKA 400 mg 08/25 Inactiv e 2023 88891 94614 0 Twice daily By Mouth False Coenzyme Q10 100 mg tablet [generic] 100 mg By Mouth Once daily For SUPP 100 mg 2023 Active 2023 82704 28373 0 Once daily By Mouth False Levothyroxi ne 50 mcg tablet [generic] 50mcg By Mouth Once daily For hypothyroidis m 50mcg 2023 Active 2023 10154 75493 0 Once daily By Mouth False One A Day Men Complete 240 mcg-25 mcg-300 mcg tablet 1 tab By Mouth Once daily For supplement 1 tab 2023 Active 2023 61082 16009 1 Once daily By Mouth False Cholecalcif adalberto (vitamin D3) 50 mcg (2,000 unit) tablet [generic] 1 TAB By Mouth Once daily For SUPP 1 TAB 2023 Active 2023 00642 00286 1 Once daily By Mouth False Cetirizine 10 mg tablet [generic] 1 TAB By Mouth At bedtime For Allergies 1 TAB 2023 Active 2023 41627 19986 0 At bedtime By Mouth False Timolol maleate 0.25 % eye drops [generic] 1 drop Both Eyes Twice daily For glaucoma 1 drop 2023 Active 2023 14357 50523 5 Twice daily Both Eyes False Alendronate 35 mg tablet [generic] 35mg By Mouth Every week For SIADH 35mg 08/31 Inactiv e 2023 98460 36690 5 Every week By Mouth False Lantus Solostar U-100 Insulin 100 unit/mL (3 mL) subcutaneou s pen 18 units Subcutaneous Every morning For DIABETES 18 units 08/25 Inactiv e 2023 19291 52549 0 Every morning Subcut aneous False Lantus Solostar U-100 Insulin 100 unit/mL (3 mL) subcutaneou s pen 18 units Subcutaneous Every morning For DIABETES 18 units 2023 Active 2023 21840 71242 0 Every morning Subcut aneous False Linezolid 600 mg tablet [generic] 600 mg By Mouth Every 12 hours For MRSA INFECTION L BKA 600 mg 08/28 Inactiv e 2023 76635 97546 1 Every 12 hours By Mouth False [...] order For Diabetes 08/31 Inactiv e 2023 25821 75370 9 4 times a day Subcut aneous False Cefpodoxime 200 mg tablet [generic] 400 mg By Mouth Twice daily For MRSA INFECTION L BKA 400 mg 08/28 Inactiv e 2023 34501 49271 0 Twice daily By Mouth False Brimonidine 0.1 % eye drops [generic] 1 drop Both Eyes Twice daily For glaucoma 1 drop 2023 Active 2023 29231 69914 0 Twice daily Both Eyes False Metoprolol succinate ER 50 mg tablet,exte nded release 24 hr [generic] 50 mg By Mouth Once daily HOLD FOR SBP <100, or pulse <60 For HTN 50 mg 2023 Active 2023 22857 11783 1 Once daily By Mouth False Amlodipine 2.5 mg tablet [generic] 2.5 mg By Mouth Once daily For HTN 2.5 mg 2023 Active 2023 03828 10185 5 Once daily By Mouth False Docusate sodium 100 mg capsule [generic] 100mg By Mouth Twice daily as needed For constipation HOLD FOR LOOSE STOOLS 100mg 2023 Active 2023 74037 20831 1 Twice daily as needed By Mouth False Atorvastati n 40 mg tablet [generic] 40mg By Mouth Once daily For HDL 40mg 08/26 Inactiv e 2023 45736 32325 5 Once daily By Mouth False Tylenol 325 mg tablet 2 tabs By Mouth Every 4 hours as needed For Pain DO NOT EXCEED 3000 MG APAP/24 Hours 2 tabs 2023 Active 2023 20979 83944 0 Every 4 hours as needed By Mouth False Tylenol 325 mg tablet 2 tabs By Mouth Every 4 hours as needed For Fever >100 DO NOT EXCEED 3000 MG APAP/24 Hours 2 tabs 2023 Active 2023 05014 78639 0 Every 4 hours as needed By Mouth False Dulcolax (bisacodyl) 10 mg rectal suppository One Suppository per rectum PRN if Milk of Magnisia ineffective. Give on day 5 of no BM 1 sup 2023 Active 2023 90841 55768 1 Daily as needed Rectal False Fleet Enema 19 gram-7 gram/118 mL Administer per rectum PRN one time if dulcolax suppository not effective. Give on day 6 of no BM 1 2023 Active 2023 69756 77916 6 Daily as needed Rectal False Dextrose 50 % in water (D50W) intravenous solution [generic] Dextrose 50% evonne 20-50 ml (slow push) Intravenous if Glucagon not effective after 15 minutes. CALL 911 for ED Evaluation. 50% evonne 2023 Active 2023 42586 68683 9 Intrav enous False Glucagon (HCl) Emergency Kit 1 mg solution for injection Administer Glucagon 1 mg Intramuscular if 15 minutes after GLucose Gel is administered Glucose remains less than 70 1 mg 2023 Active 2023 45726 62092 2 Intram uscula r False Glucose Gel 40 % oral gel [Dextrose] PRN If resident is unable to swallow (with or without symptoms) and Glucose results less than 70 give GLucose 40% Gel 1 tube orally - Recheck Glucose 15 minutes after administratio n. 1 tube 2023 Active 2023 21403 26069 8 By Mouth False Milk of Magnesia 400 mg/5 mL oral suspension [Magnesium hydroxide] PRN 30ml By Mouth Daily as needed for constipation one time daily if no BM, on day 4 of no BM (PRN refer to instructions) For Constipation 30 mL 2023 Active 2023 29602 36982 6 Daily as needed By Mouth False Atorvastati n 40 mg tablet [generic] 08/26 Inactiv e 2023 23282 87051 5 Atorvastati n 40 mg tablet [generic] 40mg By Mouth Once daily For HDL 40mg 2023 Active 2023 52621 34328 5 Once daily By Mouth False Insulin aspart (U-100) 100 unit/mL (3 mL) subcutaneou s pen [generic] 15 units Subcutaneous 1 time For dm 15 units 08/26 Inactiv e 2023 16297 22651 5 1 time Subcut aneous False Humalog KwikPen (U-100) Insulin 100 unit/mL subcutaneou s 15 units Subcutaneous 1 time For dm 15 units 08/27 Inactiv e 2023 11037 86935 9 1 time Subcut aneous False Linezolid 600 mg tablet [generic] 600 mg By Mouth Every 12 hours For MRSA INFECTION L BKA 600 mg 09/06 Inactiv e 2023 82966 40955 1 Every 12 hours By Mouth False Cefpodoxime 200 mg tablet [generic] 400 mg By Mouth Twice daily For MRSA INFECTION L BKA 400 mg 08/31 Inactiv e 2023 62005 61842 0 Twice daily By Mouth False Senna 8.6 mg tablet 8.6 mg By Mouth Once daily For Constipation 8.6 mg 09/07 Inactiv e 2023 89333 82886 1 Once daily By Mouth False Humalog [...] . Per Carb 09/19 Inactiv e 2023 10122 07512 9 4 times a day Subcut aneous False Alendronate 35 mg tablet [generic] 08/31 Inactiv e 2023 51700 01997 5 Alendronate 35 mg tablet [generic] 35mg By Mouth Every week For Osteoporosis 35mg 2023 00/00 /0000 Active 2023 26289 27568 5 Every week By Mouth False ProSource 10 gram-100 kcal/30 mL oral liquid 30 ml By Mouth Once daily For wound healing 30 ml 2023 Active 2023 96615 66189 2 Once daily By Mouth False Clotrimazol e 1 % topical cream [generic] 1 applicaiton Topical Twice daily For tinea, apply to groin rash after cleansing and throughouly drying. Can discontinue order 3 days after rash resolves. 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 08/25/2024 Active [...] weight Temperature SpO2 Blood Sugar Pulse Respirations 11535 8 67.00 mm[Hg] - Sitting 145.00 mm[Hg] - Sitting 98.50 Forehead Scan 96.00 % 81.00/ min 16.00/min 004 51841 2 67.00 mm[Hg] - Sitting 145.00 mm[Hg] - Sitting 98.50 Tympanic 81.00/ min 16.00/min 004 16420 5 56.00 mm[Hg] - Sitting 142.00 mm[Hg] - Sitting 136.40 NI 100.20 Tympanic 96.00 % 92.00/ min 18.00/min 004 30554 6 004 04253 4 143.00 mg/dL 42603 0 97.80 Tympanic 005 26017 7 60.00 mm[Hg] - Sitting 140.00 mm[Hg] - Sitting 98.00 Tympanic 84.00/ min 18.00/min 46350 005 92111 0 63.00 mm[Hg] - Sitting 141.00 mm[Hg] - Sitting 98.20 Tympanic 92.00 % 63.00/ min 16.00/min 37289 005 77435 8 69.00 mm[Hg] - Sitting 106.00 mm[Hg] - Sitting 97.20 Tympanic 005 87857 7 69.00/ min 16.00/min 99055 005 46782 3 69.00 mm[Hg] - Sitting 106.00 mm[Hg] - Sitting 98.20 Tympanic 69.00/ min 16.00/min 09291 005 89756 1 367.00 mg/dL 06689 005 95816 2 97.20 Tympanic 11846 005 15404 4 97.20 Tympanic 78230 005 04913 0 69.00 mm[Hg] - Sitting 106.00 mm[Hg] - Sitting 69.00/ min 23859 005 62124 3 452.00 mg/dL 70330 005 26737 3 452.00 mg/dL 41116 005 27799 5 352.00 mg/dL 97654 005 56399 3 352.00 mg/dL 73487 005 52222 7 98.20 Tympanic 85810 005 3 101.00 mg/dL 70321 005 01223 8 101.00 mg/dL 65584 006 90501 4 66.00 mm[Hg] - Sitting 107.00 mm[Hg] - Sitting 98.00 Tympanic 66.00/ min 18.00/min 07864 006 54807 0 62.00 mm[Hg] - Sitting 162.00 mm[Hg] - Sitting 98.20 Tympanic 96.00 % 60.00/ min 16.00/min 97094 006 75944 4 62.00 mm[Hg] - Sitting 162.00 mm[Hg] - Sitting 98.00 Tympanic 70.00/ min 18.00/min 91547 006 48143 8 62.00 mm[Hg] - Sitting 162.00 mm[Hg] - Sitting 98.20 Tympanic 70.00/ min 18.00/min 57094 006 51813 2 66.00 mm[Hg] - Sitting 132.00 mm[Hg] - Sitting 98.60 Tympanic 74.00/ min 16.00/min 80663 006 53879 5 159.00 mg/dL 66674 006 92589 1 159.00 mg/dL 58880 006 09423 8 98.00 Tympanic 15343 006 67879 2 62.00 mm[Hg] - Sitting 162.00 mm[Hg] - Sitting 70.00/ min 77502 006 16517 7 264.00 mg/dL 25649 006 77902 7 264.00 mg/dL 09700 006 71715 4 196.00 mg/dL 94109 006 75782 3 98.20 Tympanic 11758 006 01399 6 271.00 mg/dL 84927 007 40192 3 97.20 Tympanic 72986 007 81320 2 63.00 mm[Hg] - Sitting 132.00 mm[Hg] - Sitting 98.50 Tympanic 94.00 % 66.00/ min 16.00/min 62406 007 36751 5 188.00 mg/dL 78342 007 37928 2 188.00 mg/dL 36691 007 25546 2 188.00 mg/dL 48156 007 95102 7 97.20 Tympanic 19117 007 77056 6 97.20 Tympanic 98976 007 75400 5 67.00 mm[Hg] - Sitting 152.00 mm[Hg] - Sitting 68.00/ min 99442 007 31982 0 141.00 mg/dL 86498 007 85258 3 141.00 mg/dL 39206 007 17503 1 366.00 mg/dL 13261 007 55161 7 366.00 mg/dL 66394 007 85128 7 98.00 Tympanic 44402 007 86920 6 324.00 mg/dL 25614 007 18265 3 98.00 Tympanic 81866 007 46903 7 324.00 mg/dL 65115 008 35638 0 98.00 Tympanic 43958 008 73364 2 97.90 Tympanic 64217 008 94470 0 98.20 Tympanic 45143 008 16686 0 73.00 mm[Hg] - Sitting 156.00 mm[Hg] - Sitting 98.60 Tympanic 99.00 % 66.00/ min 20.00/min 96958 008 23861 5 137.00 mg/dL 41994 008 39393 7 137.00 mg/dL 38848 008 67057 2 97.90 Tympanic 03673 008 56400 1 137.00 mg/dL 55549 008 52454 8 97.90 Tympanic 69275 008 43061 5 67.00 mm[Hg] - Sitting 124.00 /min 36879 008 32924 6 212.00 mg/dL 29199 008 64462 6 212.00 mg/dL 42065 008 98923 9 317.00 mg/dL 49661 008 60153 4 317.00 mg/dL 85276 008 99460 8 252.00 mg/dL 77360 008 37092 0 98.70 Tympanic 92820 008 58430 7 252.00 mg/dL 84233 008 83180 3 98.70 Tympanic 01058 009 03383 9 98.70 Tympanic 29239 009 54896 3 98.20 Tympanic 90369 009 96774 5 98.40 Tympanic 77971 009 45233 5 57.00 mm[Hg] - Sitting 129.00 mm[Hg] - Sitting 98.30 Tympanic 97.00 % 65.00/ min 18.00/min 07225 009 41327 1 255.00 mg/dL 79689 009 26930 4 255.00 mg/dL 63434 009 81140 5 98.20 Tympanic 40445 009 91686 0 255.00 mg/dL 14438 009 93848 0 98.20 Tympanic 00482 009 54037 4 63.00 mm[Hg] - Lying Down 102.00 mm[Hg] - Lying Down 58.00/ min 99814 009 82274 0 167.00 mg/dL 89585 009 28381 1 167.00 mg/dL 42459 009 55686 2 164.00 mg/dL 52330 009 10395 1 164.00 mg/dL 21371 009 28696 5 208.00 mg/dL 94261 010 13741 3 98.40 Tympanic 98293 010 46904 5 98.40 Tympanic 49372 010 66708 7 66 NI 01471 010 31963 4 60.00 mm[Hg] - Sitting 143.00 mm[Hg] - Sitting 98.90 Tympanic 98.00 % 67.00/ min 18.00/min 80809 010 55177 2 214.00 mg/dL 78113 010 58257 0 214.00 mg/dL 94350 010 40633 7 214.00 mg/dL 10867 010 67008 6 64.00 mm[Hg] - Sitting 110.00 mm[Hg] - Sitting 72.00/ min 10091 010 07282 7 98.40 Tympanic 09620 010 54806 1 212.00 mg/dL 83712 010 46429 2 212.00 mg/dL 72165 010 23878 1 115.00 mg/dL 38829 010 13809 0 115.00 mg/dL 24864 010 80215 4 98.50 Tympanic 15330 010 99397 4 150.00 mg/dL 23064 010 88679 0 150.00 mg/dL 27709 011 00546 9 98.60 Tympanic 81330 011 08335 1 67.00 mm[Hg] - Sitting 144.00 mm[Hg] - Sitting 98.20 Tympanic 98.00 % 61.00/ min 18.00/min 66287 011 63816 7 290.00 mg/dL 60060 011 05550 2 290.00 mg/dL 13184 011 12352 2 290.00 mg/dL 96657 011 35604 7 54.00 mm[Hg] - Sitting 136.00 mm[Hg] - Sitting 101.00 /min 35002 011 38497 7 98.60 Tympanic 49263 011 14788 5 240.00 mg/dL 32242 011 87579 1 240.00 mg/dL 90662 011 55986 1 156.00 mg/dL 44403 011 68305 9 156.00 mg/dL 25385 011 36273 0 97.80 Tympanic 57028 011 03210 8 343.00 mg/dL 99045 012 59735 9 97.90 Tympanic 58587 012 90760 2 466.00 mg/dL 90721 012 92857 1 466.00 mg/dL 10360 012 50825 3 466.00 mg/dL 01567 012 49053 8 97.90 Tympanic 52217 012 32838 8 56.00 mm[Hg] - Sitting 96.00 mm[Hg] - Sitting 61.00/ min 15580 012 69218 7 350.00 mg/dL 63974 012 81102 5 350.00 mg/dL 62443 012 60172 6 111.00 mg/dL 49632 012 95634 0 111.00 mg/dL 81367 012 79057 5 98.40 Tympanic 66664 012 76579 6 114.00 mg/dL 58754 013 77144 4 74.00 mm[Hg] - Sitting 112.00 mm[Hg] - Sitting 98.40 Tympanic 70.00/ min 18.00/min 27964 013 91741 8 244.00 mg/dL 76786 013 98468 7 244.00 mg/dL 52747 013 92837 1 244.00 mg/dL 79657 013 34543 1 98.20 Tympanic 77974 013 34827 7 72.00 mm[Hg] - Sitting 119.00 mm[Hg] - Sitting 76.00/ min 66079 013 43133 7 253.00 mg/dL 90805 013 65746 4 253.00 mg/dL 82204 013 97267 9 156.00 mg/dL 14585 013 29220 5 156.00 mg/dL 64846 013 29449 4 97.90 Tympanic 43536 013 49268 5 189.00 mg/dL 10967 014 38359 9 98.10 Tympanic 40456 014 85537 0 61.00 mm[Hg] - Sitting 139.00 mm[Hg] - Sitting 98.20 Forehead Scan 99.00 % 66.00/ min 18.00/min 44859 014 61834 3 169.00 mg/dL 35965 014 51157 3 98.10 Tympanic 17264 014 82829 3 75.00 mm[Hg] - Sitting 121.00 mm[Hg] - Sitting 71.00/ min 89984 014 77798 9 221.00 mg/dL 24297 014 75147 9 62.00 mg/dL 69081 014 92732 5 62.00 mg/dL 39001 014 81599 8 156.00 mg/dL 25381 014 37162 6 98.10 Tympanic 66854 014 49845 7 156.00 mg/dL 65571 015 48112 4 71435 015 12389 7 62.00 mm[Hg] - Sitting 142.00 mm[Hg] - Sitting 98.20 Tympanic 99.00 % 67.00/ min 18.00/min 05111 015 73239 9 120.00 mg/dL 78442 015 90856 7 98.00 Tympanic 69179 015 75412 2 82.00 mm[Hg] - Sitting 119.00 /min 75412 015 01228 9 110.00 mg/dL 70124 015 86319 6 104.00 mg/dL 29504 015 68248 0 100.00 mg/dL 68385 015 88606 2 98.10 Tympanic 61179 015 51531 6 100.00 mg/dL 98841 016 18636 2 67.00 mm[Hg] - Sitting 147.00 mm[Hg] - Sitting 99.00 Tympanic 99.00 % 78.00/ min 20.00/min 01623 016 47553 5 158.00 mg/dL 42450 016 39106 1 158.00 mg/dL 94299 016 27505 2 158.00 mg/dL 40973 016 85225 0 66.00 mm[Hg] - Sitting 121.00 mm[Hg] - Sitting 74.00/ min 99777 016 08167 1 97.00 mg/dL 31260 016 52520 5 97.00 mg/dL 76445 016 75559 4 78.00 mg/dL 87936 016 24928 6 78.00 mg/dL 88363 016 85239 5 248.00 mg/dL 28708 016 31453 8 248.00 mg/dL 97171 017 75571 3 54.00 mm[Hg] - Sitting 142.00 mm[Hg] - Sitting 98.30 Tympanic 99.00 % 76.00/ min 18.00/min 55218 017 85044 4 267.00 mg/dL 87740 017 95866 6 73.00 mm[Hg] - Sitting 109.00 mm[Hg] - Sitting 70.00/ min 13326 017 07776 1 184.00 mg/dL 70428 017 07214 5 184.00 mg/dL 20019 017 68287 9 248.00 mg/dL 23951 017 23854 8 299.00 mg/dL 69682 017 93832 3 299.00 mg/dL 39410 018 91338 7 50.00 mm[Hg] - Sitting 125.00 mm[Hg] - Sitting 98.30 Tympanic 98.00 % 76.00/ min 16.00/min 69221 018 26781 3 168.00 mg/dL 63474 018 12369 0 75.00 mm[Hg] - Sitting 121.00 mm[Hg] - Sitting 70.00/ min 53242 018 80282 7 264.00 mg/dL 89180 018 89495 6 132.00 mg/dL 06206 018 38119 6 154.00 mg/dL 76950 018 49841 6 154.00 mg/dL 25497 019 30937 4 63.00 mm[Hg] - Sitting 147.00 mm[Hg] - Sitting 98.50 Tympanic 99.00 % 69.00/ min 18.00/min 35154 019 78142 9 159.00 mg/dL 91762 019 74515 8 73.00 mm[Hg] - Sitting 110.00 mm[Hg] - Sitting 72.00/ min 11577 019 97512 4 191.00 mg/dL 79742 019 19486 8 70.00 mg/dL 08822 019 55401 4 70.00 mg/dL 40525 019 18576 6 198.00 mg/dL 41563 019 47197 0 198.00 mg/dL 36699 020 86162 2 59.00 mm[Hg] - Sitting 131.00 mm[Hg] - Sitting 98.90 Tympanic 99.00 % 69.00/ min 18.00/min 32029 020 46108 7 299.00 mg/dL 61044 020 19965 0 62.00 mm[Hg] - Sitting 132.00 mm[Hg] - Sitting 68.00/ min 61777 020 15097 3 299.00 mg/dL 03169 020 32309 3 299.00 mg/dL 32792 020 20510 9 220.00 mg/dL 13920 020 07747 1 220.00 mg/dL 48490 020 85119 1 270.00 mg/dL 92367 020 59775 4 270.00 mg/dL 23680 020 75703 9 143.00 mg/dL 58481 020 30599 4 143.00 mg/dL 82834 021 33779 0 59.00 mm[Hg] - Sitting 121.00 mm[Hg] - Sitting 98.40 Forehead Scan 98.00 % 70.00/ min 16.00/min 58414 021 83574 0 140.00 mg/dL 54381 021 88756 0 67.00 mm[Hg] - Sitting 130.00 mm[Hg] - Sitting 68.00/ min 85178 021 69877 8 140.00 mg/dL 44467 021 95142 6 140.00 mg/dL 70464 021 63993 8 156.00 mg/dL 42239 021 01187 1 156.00 mg/dL 70512 021 33296 5 146.00 mg/dL 08876 021 68093 4 146.00 mg/dL 07400 021 32717 5 183.00 mg/dL 81823 021 69050 2 183.00 mg/dL 74858 022 54742 3 41883 022 81970 1 43.00 mm[Hg] - Sitting 113.00 mm[Hg] - Sitting 97.80 Tympanic 97.00 % 64.00/ min 18.00/min 41921 022 11664 6 270.00 mg/dL 99728 022 68424 5 68.00 mm[Hg] - Sitting 122.00 mm[Hg] - Sitting 67.00/ min 22758 022 59252 9 270.00 mg/dL 55627 022 26925 4 270.00 mg/dL 06986 022 12545 4 207.00 mg/dL 59848 022 31393 8 207.00 mg/dL 91249 022 33356 9 217.00 mg/dL 47181 022 42496 2 217.00 mg/dL 45229 022 40028 0 192.00 mg/dL 78699 022 47652 9 192.00 mg/dL 00874 023 35279 8 48.00 mm[Hg] - Sitting 116.00 mm[Hg] - Sitting 98.50 Tympanic 97.00 % 63.00/ min 18.00/min 21386 023 88904 9 68.00 mm[Hg] - Sitting 131.00 mm[Hg] - Sitting 68.00/ min 25190 023 08975 8 235.00 mg/dL 52219 023 92326 4 235.00 mg/dL 65319 023 26953 0 235.00 mg/dL 51807 023 96195 0 199.00 mg/dL 96984 023 76726 7 199.00 mg/dL 37002 023 00572 4 233.00 mg/dL 55173 023 94408 3 233.00 mg/dL 94326 023 52650 6 229.00 mg/dL 99661 023 45835 4 229.00 mg/dL 79773 024 61444 3 58.00 mm[Hg] - Sitting 102.00 mm[Hg] - Sitting 58.00/ min 10066 024 43382 9 156.00 mg/dL 14510 024 85106 4 156.00 mg/dL 47187 024 30070 3 156.00 mg/dL 30880 024 12694 0 343.00 mg/dL 79010 024 75153 6 343.00 mg/dL 49089 024 60770 2 167.00 mg/dL 28591 024 89793 0 167.00 mg/dL 32825 024 06743 8 155.00 mg/dL 35605 024 48702 7 155.00 mg/dL 52840 025 04578 0 51.00 mm[Hg] - Lying Down 109.00 mm[Hg] - Lying Down 98.60 Tympanic 95.00 % 67.00/ min 20.00/min 72190 025 72819 0 60.00 mm[Hg] - Sitting 118.00 mm[Hg] - Sitting 98.30 Forehead Scan 98.00 % 68.00/ min 16.00/min 60862 025 10018 3 235.00 mg/dL 05239 025 79458 1 63.00 mm[Hg] - Sitting 110.00 mm[Hg] - Sitting 75.00/ min 10264 025 59650 9 295.00 mg/dL 36897 025 74253 4 94.00 mg/dL 98584 025 49437 1 132.00 mg/dL 07234 025 05317 2 132.00 mg/dL 44977 026 53300 8 50.00 mm[Hg] - Sitting 123.00 mm[Hg] - Sitting 98.50 Tympanic 95.00 % 66.00/ min 18.00/min 42511 026 68407 0 275.00 mg/dL 16985 026 75209 7 275.00 mg/dL 72351 026 07706 1 275.00 mg/dL 81826 026 32060 6 67.00 mm[Hg] - Sitting 123.00 mm[Hg] - Sitting 66.00/ min 44289 026 88701 3 187.00 mg/dL 26909 026 60044 5 187.00 mg/dL 14855 026 50879 0 167.00 mg/dL 94183 026 03172 8 167.00 mg/dL 70024 026 61237 6 387.00 mg/dL 20592 027 69459 7 53.00 mm[Hg] - Sitting 132.00 mm[Hg] - Sitting 98.60 Tympanic 97.00 % 64.00/ min 18.00/min 67470 027 18699 9 189.00 mg/dL 71831 027 28165 4 67.00 mm[Hg] - Sitting 118.00 mm[Hg] - Sitting 66.00/ min 24688 027 73935 2 189.00 mg/dL 23862 027 26756 7 189.00 mg/dL 23337 027 90466 1 105.00 mg/dL 56396 027 51776 8 105.00 mg/dL 44493 027 95583 4 223.00 mg/dL 04303 027 69882 9 223.00 mg/dL 69262 027 06531 9 164.00 mg/dL 73603 028 51993 0 68.00 mm[Hg] - Sitting 115.00 mm[Hg] - Sitting 98.60 Forehead Scan 96.00 % 71.00/ min 16.00/min 52964 028 40035 1 200.00 mg/dL 42944 028 18783 9 200.00 mg/dL 93511 028 15660 1 69.00 mm[Hg] - Sitting 122.00 mm[Hg] - Sitting 67.00/ min 39034 028 30740 3 200.00 mg/dL 22243 028 59990 0 117.00 mg/dL 81008 028 16576 0 117.00 mg/dL 72048 028 20285 1 114.00 mg/dL 89889 028 51666 7 114.00 mg/dL 91863 028 54439 0 179.00 mg/dL 97011 028 37215 8 179.00 mg/dL 04098 029 84452 4 44.00 mm[Hg] - Sitting 121.00 mm[Hg] - Sitting 98.30 Tympanic 97.00 % 65.00/ min 18.00/min 75081 029 90486 9 147.00 mg/dL 04940 029 93817 0 147.00 mg/dL 53828 029 58918 4 147.00 mg/dL 02386 029 61091 1 63.00 mm[Hg] - Sitting 118.00 mm[Hg] - Sitting 74.00/ min 06609 029 34933 2 278.00 mg/dL 68740 029 28721 3 278.00 mg/dL 74747 029 93402 1 241.00 mg/dL 38847 029 59930 8 45199 029 53967 1 504.00 mg/dL Immunizations Vaccine Date Status COVID-19 09/20/2023 Completed Influenza 09/14/2024 Completed Other 10/08/2023 Completed Shingles 05/27/2011 Completed Tetanus 04/13/2022 Completed TDaP 04/13/2022 Completed Shingles 2 10/05/2018 Completed
--- OUTSIDE RECORDS SUMMARY | 2024-10-03 10:54 | External Medical Summary | Continuity Of Care Document ---
Author Name Unknown Address [address] [address] Organization [facility] () Care Team Providers Care [employer] Engineer Name Role Phone DO Machado Amy Primary Care Provider [phone] Allergies Allergy Reaction Start Date End Date [...] 3 0.1 mL 08/29 Inactiv e 2023 70452 32713 0 1 time Intrad ermal False Tubersol 5 tub. unit/0.1 mL intradermal injection solution [Tuberculin PPD] 0.1mL Intradermal 1 time For PPD 2nd Step Give 2nd Step PPD Day 1 and Read results Day 3 (schedule 7 days after 1st READ) 0.1mL 09/08 Inactiv e 2023 15057 93710 0 1 time Intrad ermal False [facility] - Nurse initials indicate verificatio n that [id number] vaccine was administere d by [facility] [...] order For Diabetes 08/25 Inactiv e 2023 22826 36143 9 4 times a day Subcut aneous False Aspirin 325 mg tablet [generic] 325 By Mouth Twice daily For Anticoagulati on 325 09/25 Active 2023 50032 79322 1 Twice daily By Mouth False Ferrous sulfate 325 mg (65 mg iron) tablet [generic] 325 By Mouth Once daily For anemia 325 2023 Active 2023 61353 50261 5 Once daily By Mouth False Linezolid 600 mg tablet [generic] 600 mg By Mouth Every 12 hours For MRSA INFECTION L BKA 600 mg 08/25 Inactiv e 2023 17985 70018 1 Every 12 hours By Mouth False Cefpodoxime 200 mg tablet [generic] 400 mg By Mouth Twice daily For MRSA INFECTION L BKA 400 mg 08/25 Inactiv e 2023 12288 11859 0 Twice daily By Mouth False Coenzyme Q10 100 mg tablet [generic] 100 mg By Mouth Once daily For SUPP 100 mg 2023 Active 2023 45632 57019 0 Once daily By Mouth False Levothyroxi ne 50 mcg tablet [generic] 50mcg By Mouth Once daily For hypothyroidis m 50mcg 2023 Active 2023 66101 36185 0 Once daily By Mouth False One A Day Men Complete 240 mcg-25 mcg-300 mcg tablet 1 tab By Mouth Once daily For supplement 1 tab 2023 Active 2023 53549 71656 1 Once daily By Mouth False Cholecalcif adalberto (vitamin D3) 50 mcg (2,000 unit) tablet [generic] 1 TAB By Mouth Once daily For SUPP 1 TAB 2023 Active 2023 83561 58761 1 Once daily By Mouth False Cetirizine 10 mg tablet [generic] 1 TAB By Mouth At bedtime For Allergies 1 TAB 2023 Active 2023 80612 25585 0 At bedtime By Mouth False Timolol maleate 0.25 % eye drops [generic] 1 drop Both Eyes Twice daily For glaucoma 1 drop 2023 Active 2023 63255 75272 5 Twice daily Both Eyes False Alendronate 35 mg tablet [generic] 35mg By Mouth Every week For SIADH 35mg 08/31 Inactiv e 2023 65392 56591 5 Every week By Mouth False Lantus Solostar U-100 Insulin 100 unit/mL (3 mL) subcutaneou s pen 18 units Subcutaneous Every morning For DIABETES 18 units 08/25 Inactiv e 2023 14691 07218 0 Every morning Subcut aneous False Lantus Solostar U-100 Insulin 100 unit/mL (3 mL) subcutaneou s pen 18 units Subcutaneous Every morning For DIABETES 18 units 2023 Active 2023 37275 31273 0 Every morning Subcut aneous False Linezolid 600 mg tablet [generic] 600 mg By Mouth Every 12 hours For MRSA INFECTION L BKA 600 mg 08/28 Inactiv e 2023 82709 85798 1 Every 12 hours By Mouth False [...] order For Diabetes 08/31 Inactiv e 2023 19952 72295 9 4 times a day Subcut aneous False Cefpodoxime 200 mg tablet [generic] 400 mg By Mouth Twice daily For MRSA INFECTION L BKA 400 mg 08/28 Inactiv e 2023 64170 58077 0 Twice daily By Mouth False Brimonidine 0.1 % eye drops [generic] 1 drop Both Eyes Twice daily For glaucoma 1 drop 2023 Active 2023 58380 29498 0 Twice daily Both Eyes False Metoprolol succinate ER 50 mg tablet,exte nded release 24 hr [generic] 50 mg By Mouth Once daily HOLD FOR SBP <100, or pulse <60 For HTN 50 mg 2023 Active 2023 52561 41389 1 Once daily By Mouth False Amlodipine 2.5 mg tablet [generic] 2.5 mg By Mouth Once daily For HTN 2.5 mg 2023 Active 2023 82717 29258 5 Once daily By Mouth False Docusate sodium 100 mg capsule [generic] 100mg By Mouth Twice daily as needed For constipation HOLD FOR LOOSE STOOLS 100mg 2023 Active 2023 50729 26598 1 Twice daily as needed By Mouth False Atorvastati n 40 mg tablet [generic] 40mg By Mouth Once daily For HDL 40mg 08/26 Inactiv e 2023 30523 33556 5 Once daily By Mouth False Tylenol 325 mg tablet 2 tabs By Mouth Every 4 hours as needed For Pain DO NOT EXCEED 3000 MG APAP/24 Hours 2 tabs 2023 Active 2023 15655 92410 0 Every 4 hours as needed By Mouth False Tylenol 325 mg tablet 2 tabs By Mouth Every 4 hours as needed For Fever >100 DO NOT EXCEED 3000 MG APAP/24 Hours 2 tabs 2023 Active 2023 01269 66719 0 Every 4 hours as needed By Mouth False Dulcolax (bisacodyl) 10 mg rectal suppository One Suppository per rectum PRN if Milk of Magnisia ineffective. Give on day 5 of no BM 1 sup 2023 Active 2023 61000 05356 1 Daily as needed Rectal False Fleet Enema 19 gram-7 gram/118 mL Administer per rectum PRN one time if dulcolax suppository not effective. Give on day 6 of no BM 1 2023 Active 2023 30528 53034 6 Daily as needed Rectal False Dextrose 50 % in water (D50W) intravenous solution [generic] Dextrose 50% evonne 20-50 ml (slow push) Intravenous if Glucagon not effective after 15 minutes. CALL 911 for ED Evaluation. 50% evonne 2023 Active 2023 31310 08355 9 Intrav enous False Glucagon (HCl) Emergency Kit 1 mg solution for injection Administer Glucagon 1 mg Intramuscular if 15 minutes after GLucose Gel is administered Glucose remains less than 70 1 mg 2023 Active 2023 27181 34463 2 Intram uscula r False Glucose Gel 40 % oral gel [Dextrose] PRN If resident is unable to swallow (with or without symptoms) and Glucose results less than 70 give GLucose 40% Gel 1 tube orally - Recheck Glucose 15 minutes after administratio n. 1 tube 2023 Active 2023 67997 27582 8 By Mouth False Milk of Magnesia 400 mg/5 mL oral suspension [Magnesium hydroxide] PRN 30ml By Mouth Daily as needed for constipation one time daily if no BM, on day 4 of no BM (PRN refer to instructions) For Constipation 30 mL 2023 Active 2023 05703 28252 6 Daily as needed By Mouth False Atorvastati n 40 mg tablet [generic] 08/26 Inactiv e 2023 90922 77108 5 Atorvastati n 40 mg tablet [generic] 40mg By Mouth Once daily For HDL 40mg 2023 Active 2023 57409 15538 5 Once daily By Mouth False Insulin aspart (U-100) 100 unit/mL (3 mL) subcutaneou s pen [generic] 15 units Subcutaneous 1 time For dm 15 units 08/26 Inactiv e 2023 68325 90938 5 1 time Subcut aneous False Humalog KwikPen (U-100) Insulin 100 unit/mL subcutaneou s 15 units Subcutaneous 1 time For dm 15 units 08/27 Inactiv e 2023 17925 23588 9 1 time Subcut aneous False Linezolid 600 mg tablet [generic] 600 mg By Mouth Every 12 hours For MRSA INFECTION L BKA 600 mg 09/06 Inactiv e 2023 41453 87475 1 Every 12 hours By Mouth False Cefpodoxime 200 mg tablet [generic] 400 mg By Mouth Twice daily For MRSA INFECTION L BKA 400 mg 08/31 Inactiv e 2023 06526 05915 0 Twice daily By Mouth False Senna 8.6 mg tablet 8.6 mg By Mouth Once daily For Constipation 8.6 mg 09/07 Inactiv e 2023 24995 95129 1 Once daily By Mouth False Humalog [...] . Per Carb 09/19 Inactiv e 2023 99971 81435 9 4 times a day Subcut aneous False Alendronate 35 mg tablet [generic] 08/31 Inactiv e 2023 36038 24377 5 Alendronate 35 mg tablet [generic] 35mg By Mouth Every week For Osteoporosis 35mg 09/21 Inactiv e 2023 00338 54907 5 Every week By Mouth False ProSource 10 gram-100 kcal/30 mL oral liquid 30 ml By Mouth Once daily For wound healing 30 ml 2023 Active 2023 62380 86187 2 Once daily By Mouth False Clotrimazol e 1 % topical cream [generic] 1 applicaiton Topical Twice daily For tinea, apply to groin rash after cleansing and throughouly drying. Can discontinue order 3 days after rash resolves. 1 applica stacy 09/08 Inactiv e 2023 08660 28233 0 Twice daily Topica l False MAGIC MIX 1:1:1:1 : ZINC OXIDE EXTERNAL OINTMENT 40%; HYDROCOTISO NE EXTERNAL CREAM 1%; NYSTATIN EXTERNAL CREAM 982099N/GM; SILVADENE CREAM 1% Every shift Apply topically to MASD area on coccyx/buttoc ks each shift and as needed for incontinence care For MASD on coccyx layer 2023 Active 2023 Every shift Topica l False Senna 8.6 mg tablet 8.6 mg By Mouth Once daily For Constipation 8.6 mg 09/07 Inactiv e 2023 70184 80339 1 Once daily By Mouth False Senna 8.6 mg tablet 8.6 mg By Mouth Once daily As Needed For Constipation 8.6 mg 2023 Active 2023 39622 72868 1 Once daily By Mouth False BD AutoShield Duo Pen Needle 30 gauge x 3/16in 1 pen needle Subcutaneous 4 times a day For DM 1 pen needle 202300 Active 2023 12578 05668 5 4 times a day Subcut aneous False Hydrocortis one 1 % topical ointment [generic] 1 application Topical Twice daily For tinea *mix 1:1 with clotrimazole cream and apply to clean/dry groin rash 1 applica peggy 09/19 Inactiv e 2023 15136 87874 6 Twice daily Topica l False Clotrimazol e 1 % topical cream [generic] 1 applicaiton Topical Twice daily For tinea, apply to groin rash after cleansing and throughouly drying. MIX WITH HYDROCORTISON E Can discontinue order 3 days after rash resolves. 1 applica stacy 2023 Active 2023 70378 55189 0 Twice daily Topica l False Humalog KwikPen (U-100) Insulin 100 unit/mL subcutaneou s 09/19 Inactiv e 2023 80406 19663 9 Humalog KwikPen (U-100) Insulin 100 unit/mL [...] abnormalities . Per Carb 2023 Active 2023 84187 39627 9 4 times a day Subcut aneous False Humalog KwikPen (U-100) Insulin 100 unit/mL subcutaneou s 10 units Subcutaneous 1 time For DM 10 units 09/20 Inactiv e 2023 08342 25516 9 1 time Subcut aneous False Alendronate 35 mg tablet [generic] 09/21 Inactiv e 2023 13770 35439 5 Alendronate 35 mg tablet [generic] 35mg By Mouth Every week For Osteoporosis take with a full glass of water on an empty stomach no other food or medication remain upright do not crush 35mg 2023 Active 2023 16012 08852 5 Every week By Mouth False Humalog KwikPen (U-100) Insulin 100 unit/mL subcutaneou s 08/31 Inactiv e 2023 38250 71485 9 MediHoney HCS 4 1/2in X 4 1/2in bandage Cleanse area with NSS, apply one medihoney hydrocolloid dressing, non adherent dressing, kerlix secure with paper tape daily. For wound stage III 1 09/19 Inactiv e 2023 90259 48048 1 Once daily Topica l False Betadine 10 % topical solution wound care cleanse withnormal saline, apply gauze soaked in betadine, leave on 5 minutes pat dry leave open to air 1 2023 Active 2023 64929 40880 1 Once daily Topica l False Problems Code Description Start Date End Date Status D64.9 Anemia, unspecified 08/25/2024 Activ e I25.10 Atherosclerotic hear t disease of [place] coronary artery without angina pectoris 08/25/2024 Active [...] weight Temperature SpO2 Blood Sugar Pulse Respirations 06589 8 67.00 mm[Hg] - Sitting 145.00 mm[Hg] - Sitting 98.50 Forehead Scan 96.00 % 81.00/ min 16.00/min 72104 004 42330 2 67.00 mm[Hg] - Sitting 145.00 mm[Hg] - Sitting 98.50 Tympanic 81.00/ min 16.00/min 22580 004 28776 5 56.00 mm[Hg] - Sitting 142.00 mm[Hg] - Sitting 136.40 NI 100.20 Tympanic 96.00 % 92.00/ min 18.00/min 80595 004 85967 6 95538 004 85349 4 143.00 mg/dL 004 55130 0 97.80 Tympanic 97158 005 11976 7 60.00 mm[Hg] - Sitting 140.00 mm[Hg] - Sitting 98.00 Tympanic 84.00/ min 18.00/min 23607 005 79976 0 63.00 mm[Hg] - Sitting 141.00 mm[Hg] - Sitting 98.20 Tympanic 92.00 % 63.00/ min 16.00/min 20153 005 46776 8 69.00 mm[Hg] - Sitting 106.00 mm[Hg] - Sitting 97.20 Tympanic 67639 005 84858 7 69.00/ min 16.00/min 65852 005 66958 3 69.00 mm[Hg] - Sitting 106.00 mm[Hg] - Sitting 98.20 Tympanic 69.00/ min 16.00/min 36748 005 16286 1 367.00 mg/dL 75952 005 55634 2 97.20 Tympanic 89102 005 53722 4 97.20 Tympanic 75381 005 51902 0 69.00 mm[Hg] - Sitting 106.00 mm[Hg] - Sitting 69.00/ min 43258 005 07160 3 452.00 mg/dL 94232 005 73693 3 452.00 mg/dL 26978 005 25527 5 352.00 mg/dL 09977 005 47372 3 352.00 mg/dL 98958 005 02064 7 98.20 Tympanic 59469 005 3 101.00 mg/dL 28499 005 8 101.00 mg/dL 44767 006 74450 4 66.00 mm[Hg] - Sitting 107.00 mm[Hg] - Sitting 98.00 Tympanic 66.00/ min 18.00/min 98521 006 27962 0 62.00 mm[Hg] - Sitting 162.00 mm[Hg] - Sitting 98.20 Tympanic 96.00 % 60.00/ min 16.00/min 86817 006 25553 4 98.00 Tympanic Immunizations Vaccine Date Status COVID-19 09/20/2023 Completed Influenza 09/14/2024 Completed Other 10/08/2023 Completed Shingles 05/27/2011 Completed Tetanus 04/13/2022 Completed TDaP 04/13/2022 Completed Shingles 2 10/05/2018 Completed
--- OUTSIDE RECORDS SUMMARY | 2024-10-03 10:55 | External Medical Summary | Continuity Of Care Document ---
Author Name Unknown Address [address] [address] Organization [facility] () Care Team Providers Care Fare Collector Name Role Phone DO Machado Amy Primary Care Provider [phone] Allergies Allergy Reaction Start Date End Date [...] 3 0.1 mL 08/29 Inactiv e 2023 06276 87764 0 1 time Intrad ermal False Tubersol 5 tub. unit/0.1 mL intradermal injection solution [Tuberculin PPD] 0.1mL Intradermal 1 time For PPD 2nd Step Give 2nd Step PPD Day 1 and Read results Day 3 (schedule 7 days after 1st READ) 0.1mL 09/08 Inactiv e 2023 06745 73848 0 1 time Intrad ermal False [facility] - Nurse initials indicate verificatio n that [id number] vaccine was administere d by [facility] [...] order For Diabetes 08/25 Inactiv e 2023 68351 47418 9 4 times a day Subcut aneous False Aspirin 325 mg tablet [generic] 325 By Mouth Twice daily For Anticoagulati on 325 09/25 Active 2023 66174 72383 1 Twice daily By Mouth False Ferrous sulfate 325 mg (65 mg iron) tablet [generic] 325 By Mouth Once daily For anemia 325 2023 Active 2023 93476 83985 5 Once daily By Mouth False Linezolid 600 mg tablet [generic] 600 mg By Mouth Every 12 hours For MRSA INFECTION L BKA 600 mg 08/25 Inactiv e 2023 25360 79024 1 Every 12 hours By Mouth False Cefpodoxime 200 mg tablet [generic] 400 mg By Mouth Twice daily For MRSA INFECTION L BKA 400 mg 08/25 Inactiv e 2023 32547 31931 0 Twice daily By Mouth False Coenzyme Q10 100 mg tablet [generic] 100 mg By Mouth Once daily For SUPP 100 mg 2023 Active 2023 29364 72808 0 Once daily By Mouth False Levothyroxi ne 50 mcg tablet [generic] 50mcg By Mouth Once daily For hypothyroidis m 50mcg 2023 Active 2023 47958 67107 0 Once daily By Mouth False One A Day Men Complete 240 mcg-25 mcg-300 mcg tablet 1 tab By Mouth Once daily For supplement 1 tab 2023 Active 2023 45494 65306 1 Once daily By Mouth False Cholecalcif adalberto (vitamin D3) 50 mcg (2,000 unit) tablet [generic] 1 TAB By Mouth Once daily For SUPP 1 TAB 2023 Active 2023 85605 87686 1 Once daily By Mouth False Cetirizine 10 mg tablet [generic] 1 TAB By Mouth At bedtime For Allergies 1 TAB 2023 Active 2023 76248 16027 0 At bedtime By Mouth False Timolol maleate 0.25 % eye drops [generic] 1 drop Both Eyes Twice daily For glaucoma 1 drop 2023 Active 2023 76978 75414 5 Twice daily Both Eyes False Alendronate 35 mg tablet [generic] 35mg By Mouth Every week For SIADH 35mg 08/31 Inactiv e 2023 26690 12560 5 Every week By Mouth False Lantus Solostar U-100 Insulin 100 unit/mL (3 mL) subcutaneou s pen 18 units Subcutaneous Every morning For DIABETES 18 units 08/25 Inactiv e 2023 76403 16598 0 Every morning Subcut aneous False Lantus Solostar U-100 Insulin 100 unit/mL (3 mL) subcutaneou s pen 18 units Subcutaneous Every morning For DIABETES 18 units 2023 Active 2023 52849 11852 0 Every morning Subcut aneous False Linezolid 600 mg tablet [generic] 600 mg By Mouth Every 12 hours For MRSA INFECTION L BKA 600 mg 08/28 Inactiv e 2023 00259 46219 1 Every 12 hours By Mouth False [...] order For Diabetes 08/31 Inactiv e 2023 57619 74610 9 4 times a day Subcut aneous False Cefpodoxime 200 mg tablet [generic] 400 mg By Mouth Twice daily For MRSA INFECTION L BKA 400 mg 08/28 Inactiv e 2023 06894 02803 0 Twice daily By Mouth False Brimonidine 0.1 % eye drops [generic] 1 drop Both Eyes Twice daily For glaucoma 1 drop 2023 Active 2023 46110 61636 0 Twice daily Both Eyes False Metoprolol succinate ER 50 mg tablet,exte nded release 24 hr [generic] 50 mg By Mouth Once daily HOLD FOR SBP <100, or pulse <60 For HTN 50 mg 2023 Active 2023 20795 62131 1 Once daily By Mouth False Amlodipine 2.5 mg tablet [generic] 2.5 mg By Mouth Once daily For HTN 2.5 mg 2023 Active 2023 55996 93535 5 Once daily By Mouth False Docusate sodium 100 mg capsule [generic] 100mg By Mouth Twice daily as needed For constipation HOLD FOR LOOSE STOOLS 100mg 2023 Active 2023 16696 34165 1 Twice daily as needed By Mouth False Atorvastati n 40 mg tablet [generic] 40mg By Mouth Once daily For HDL 40mg 08/26 Inactiv e 2023 51206 46975 5 Once daily By Mouth False Tylenol 325 mg tablet 2 tabs By Mouth Every 4 hours as needed For Pain DO NOT EXCEED 3000 MG APAP/24 Hours 2 tabs 2023 Active 2023 45141 89068 0 Every 4 hours as needed By Mouth False Tylenol 325 mg tablet 2 tabs By Mouth Every 4 hours as needed For Fever >100 DO NOT EXCEED 3000 MG APAP/24 Hours 2 tabs 2023 Active 2023 02053 57970 0 Every 4 hours as needed By Mouth False Dulcolax (bisacodyl) 10 mg rectal suppository One Suppository per rectum PRN if Milk of Magnisia ineffective. Give on day 5 of no BM 1 sup 2023 Active 2023 94108 19595 1 Daily as needed Rectal False Fleet Enema 19 gram-7 gram/118 mL Administer per rectum PRN one time if dulcolax suppository not effective. Give on day 6 of no BM 1 2023 Active 2023 34380 66774 6 Daily as needed Rectal False Dextrose 50 % in water (D50W) intravenous solution [generic] Dextrose 50% evonne 20-50 ml (slow push) Intravenous if Glucagon not effective after 15 minutes. CALL 911 for ED Evaluation. 50% evonne 2023 Active 2023 33969 35540 9 Intrav enous False Glucagon (HCl) Emergency Kit 1 mg solution for injection Administer Glucagon 1 mg Intramuscular if 15 minutes after GLucose Gel is administered Glucose remains less than 70 1 mg 2023 Active 2023 98399 12691 2 Intram uscula r False Glucose Gel 40 % oral gel [Dextrose] PRN If resident is unable to swallow (with or without symptoms) and Glucose results less than 70 give GLucose 40% Gel 1 tube orally - Recheck Glucose 15 minutes after administratio n. 1 tube 2023 Active 2023 57875 81763 8 By Mouth False Milk of Magnesia 400 mg/5 mL oral suspension [Magnesium hydroxide] PRN 30ml By Mouth Daily as needed for constipation one time daily if no BM, on day 4 of no BM (PRN refer to instructions) For Constipation 30 mL 2023 Active 2023 66828 85720 6 Daily as needed By Mouth False Atorvastati n 40 mg tablet [generic] 08/26 Inactiv e 2023 46640 75354 5 Atorvastati n 40 mg tablet [generic] 40mg By Mouth Once daily For HDL 40mg 2023 Active 2023 65136 18457 5 Once daily By Mouth False Insulin aspart (U-100) 100 unit/mL (3 mL) subcutaneou s pen [generic] 15 units Subcutaneous 1 time For dm 15 units 08/26 Inactiv e 2023 88024 09857 5 1 time Subcut aneous False Humalog KwikPen (U-100) Insulin 100 unit/mL subcutaneou s 15 units Subcutaneous 1 time For dm 15 units 08/27 Inactiv e 2023 45177 13625 9 1 time Subcut aneous False Linezolid 600 mg tablet [generic] 600 mg By Mouth Every 12 hours For MRSA INFECTION L BKA 600 mg 09/06 Inactiv e 2023 21209 03674 1 Every 12 hours By Mouth False Cefpodoxime 200 mg tablet [generic] 400 mg By Mouth Twice daily For MRSA INFECTION L BKA 400 mg 08/31 Inactiv e 2023 06910 70449 0 Twice daily By Mouth False Senna 8.6 mg tablet 8.6 mg By Mouth Once daily For Constipation 8.6 mg 09/07 Inactiv e 2023 10518 22512 1 Once daily By Mouth False Humalog [...] . Per Carb 09/19 Inactiv e 2023 29881 17297 9 4 times a day Subcut aneous False Alendronate 35 mg tablet [generic] 08/31 Inactiv e 2023 63194 44975 5 Alendronate 35 mg tablet [generic] 35mg By Mouth Every week For Osteoporosis 35mg 2023 00/00 /0000 Active 2023 91550 76731 5 Every week By Mouth False ProSource 10 gram-100 kcal/30 mL oral liquid 30 ml By Mouth Once daily For wound healing 30 ml 2023 Active 2023 06127 16779 2 Once daily By Mouth False Clotrimazol e 1 % topical cream [generic] 1 applicaiton Topical Twice daily For tinea, apply to groin rash after cleansing and throughouly drying. Can discontinue order 3 days after rash resolves. 1 applica stacy 09/08 Inactiv e 2023 20711 92668 0 Twice daily Topica l False MAGIC MIX 1:1:1:1 : ZINC OXIDE EXTERNAL OINTMENT 40%; HYDROCOTISO NE EXTERNAL CREAM 1%; NYSTATIN EXTERNAL CREAM 052188Q/GM; SILVADENE CREAM 1% Every shift Apply topically to MASD area on coccyx/buttoc ks each shift and as needed for incontinence care For MASD on coccyx layer 2023 Active 2023 Every shift Topica l False Senna 8.6 mg tablet 8.6 mg By Mouth Once daily For Constipation 8.6 mg 09/07 Inactiv e 2023 38123 39664 1 Once daily By Mouth False Senna 8.6 mg tablet 8.6 mg By Mouth Once daily As Needed For Constipation 8.6 mg 2023 Active 2023 94438 70132 1 Once daily By Mouth False BD AutoShield Duo Pen Needle 30 gauge x 3/16in 1 pen needle Subcutaneous 4 times a day For DM 1 pen needle 2023 Active 2023 81779 37116 5 4 times a day Subcut aneous False Hydrocortis one 1 % topical ointment [generic] 1 application Topical Twice daily For tinea *mix 1:1 with clotrimazole cream and apply to clean/dry groin rash 1 applica peggy 09/19 Inactiv e 2023 09428 60366 6 Twice daily Topica l False Clotrimazol e 1 % topical cream [generic] 1 applicaiton Topical Twice daily For tinea, apply to groin rash after cleansing and throughouly drying. MIX WITH HYDROCORTISON E Can discontinue order 3 days after rash resolves. 1 applica stacy 2023 Active 2023 63107 33153 0 Twice daily Topica l False Humalog KwikPen (U-100) Insulin 100 unit/mL subcutaneou s 09/19 Inactiv e 2023 71120 41255 9 Humalog KwikPen (U-100) Insulin 100 unit/mL [...] abnormalities . Per Carb 2023 Active 2023 90858 51386 9 4 times a day Subcut aneous False Humalog KwikPen (U-100) Insulin 100 unit/mL subcutaneou s 10 units Subcutaneous 1 time For DM 10 units 09/20 Inactiv e 2023 78353 27476 9 1 time Subcut aneous False Humalog KwikPen (U-100) Insulin 100 unit/mL subcutaneou s 08/31 Inactiv e 2023 09225 15018 9 MediHoney HCS 4 1/2in X 4 1/2in bandage Cleanse area with NSS, apply one mediney hydrocolloid dressing, non adherent dressing, kerlix secure with paper tape daily. For wound stage III 1 09/19 Inactiv e 2023 24993 99104 1 Once daily Topica l False Betadine 10 % topical solution wound care cleanse withnormal saline, apply gauze soaked in betadine, leave on 5 minutes pat dry leave open to air 1 2023 Active 2023 95150 45535 1 Once daily Topica l False Problems Code Description Start Date End Date Status D64.9 Anemia, unspecified 08/25/2024 Activ e I25.10 Atherosclerotic hear t disease of [place] coronary artery without angina pectoris 08/25/2024 Active [...] 08/25/2024 Ac tive E03.9 Hypothyroidism, unspecified 08/25/2024 Active H40.9 Unspecified glaucoma 08/25/2024 Acti ve [...] weight Temperature SpO2 Blood Sugar Pulse Respirations 29365 004 45828 8 67.00 mm[Hg] - Sitting 145.00 mm[Hg] - Sitting 98.50 Forehead Scan 96.00 % 81.00/ min 16.00/min 48461 004 28170 2 67.00 mm[Hg] - Sitting 145.00 mm[Hg] - Sitting 98.50 Tympanic 81.00/ min 16.00/min 82734 004 97947 5 56.00 mm[Hg] - Sitting 142.00 mm[Hg] - Sitting 136.40 NI 100.20 Tympanic 96.00 % 92.00/ min 18.00/min 16286 004 12323 6 25921 004 78947 4 143.00 mg/dL 46809 004 42481 0 97.80 Tympanic 69249 005 78609 7 60.00 mm[Hg] - Sitting 140.00 mm[Hg] - Sitting 98.00 Tympanic 84.00/ min 18.00/min 24121 005 90122 0 63.00 mm[Hg] - Sitting 141.00 mm[Hg] - Sitting 98.20 Tympanic 92.00 % 63.00/ min 16.00/min 68421 005 62049 8 69.00 mm[Hg] - Sitting 106.00 mm[Hg] - Sitting 97.20 Tympanic 11447 005 27687 7 69.00/ min 16.00/min 51992 005 26117 3 69.00 mm[Hg] - Sitting 106.00 mm[Hg] - Sitting 98.20 Tympanic 69.00/ min 16.00/min 51275 005 67350 1 367.00 mg/dL 83039 005 02889 2 97.20 Tympanic 25669 005 00524 4 97.20 Tympanic 15793 005 02299 0 69.00 mm[Hg] - Sitting 106.00 mm[Hg] - Sitting 69.00/ min 71363 005 75639 3 452.00 mg/dL 31320 005 20052 3 452.00 mg/dL 99267 005 95222 5 352.00 mg/dL 45427 005 62417 3 352.00 mg/dL 66667 005 28543 7 98.20 Tympanic 61303 005 37404 3 101.00 mg/dL 82121 005 89059 8 101.00 mg/dL 88429 006 26136 4 66.00 mm[Hg] - Sitting 107.00 mm[Hg] - Sitting 98.00 Tympanic 66.00/ min 18.00/min 95486 006 53064 0 62.00 mm[Hg] - Sitting 162.00 mm[Hg] - Sitting 98.20 Tympanic 96.00 % 60.00/ min 16.00/min 94547 006 44532 4 62.00 mm[Hg] - Sitting 162.00 mm[Hg] - Sitting 98.00 Tympanic 70.00/ min 18.00/min 06073 006 74520 8 62.00 mm[Hg] - Sitting 162.00 mm[Hg] - Sitting 98.20 Tympanic 70.00/ min 18.00/min 93412 006 53256 2 66.00 mm[Hg] - Sitting 132.00 mm[Hg] - Sitting 98.60 Tympanic 74.00/ min 16.00/min 87459 006 28697 5 159.00 mg/dL 70089 006 52971 1 159.00 mg/dL 37122 006 30881 8 98.00 Tympanic 33495 006 99186 2 62.00 mm[Hg] - Sitting 162.00 mm[Hg] - Sitting 70.00/ min 79495 006 86177 7 264.00 mg/dL 50761 006 76009 7 264.00 mg/dL 42382 006 73520 4 196.00 mg/dL 55231 006 72772 3 98.20 Tympanic 66702 006 29419 6 271.00 mg/dL 24675 007 26549 3 97.20 Tympanic 47203 007 94438 2 63.00 mm[Hg] - Sitting 132.00 mm[Hg] - Sitting 98.50 Tympanic 94.00 % 66.00/ min 16.00/min 75076 007 16562 5 188.00 mg/dL 63377 007 09029 2 188.00 mg/dL 34866 007 95607 2 188.00 mg/dL 29312 007 27402 7 97.20 Tympanic 88186 007 51738 6 97.20 Tympanic 60797 007 50213 5 67.00 mm[Hg] - Sitting 152.00 mm[Hg] - Sitting 68.00/ min 52023 007 27032 0 141.00 mg/dL 94512 007 25946 3 141.00 mg/dL 57171 007 56827 1 366.00 mg/dL 07281 007 18278 7 366.00 mg/dL 27978 007 93376 7 98.00 Tympanic 19987 007 98504 6 324.00 mg/dL 61324 007 26068 3 98.00 Tympanic 88813 007 99941 7 324.00 mg/dL 40297 008 85231 0 98.00 Tympanic 19806 008 02104 2 97.90 Tympanic 96596 008 69284 0 98.20 Tympanic 28356 008 29051 0 73.00 mm[Hg] - Sitting 156.00 mm[Hg] - Sitting 98.60 Tympanic 99.00 % 66.00/ min 20.00/min 41150 008 93245 5 137.00 mg/dL 80616 008 56327 7 137.00 mg/dL 17095 008 29801 2 97.90 Tympanic 00922 008 29166 1 137.00 mg/dL 14229 008 66744 8 97.90 Tympanic 86686 008 81773 5 67.00 mm[Hg] - Sitting 124.00 /min 17975 008 06288 6 212.00 mg/dL 61118 008 02182 6 212.00 mg/dL 00509 008 27667 9 317.00 mg/dL 98774 008 95827 4 317.00 mg/dL 28831 008 99043 8 252.00 mg/dL 77121 008 25648 0 98.70 Tympanic 11550 008 64847 7 252.00 mg/dL 04982 008 35480 3 98.70 Tympanic 80459 009 54758 9 98.70 Tympanic 87472 009 58248 3 98.20 Tympanic 02807 009 76887 5 98.40 Tympanic 81847 009 17368 5 57.00 mm[Hg] - Sitting 129.00 mm[Hg] - Sitting 98.30 Tympanic 97.00 % 65.00/ min 18.00/min 45991 009 82549 1 255.00 mg/dL 60869 009 95666 4 255.00 mg/dL 13324 009 90758 5 98.20 Tympanic 16029 009 88359 0 255.00 mg/dL 90920 009 30632 0 98.20 Tympanic 29366 009 96890 4 63.00 mm[Hg] - Lying Down 102.00 mm[Hg] - Lying Down 58.00/ min 35540 009 05630 0 167.00 mg/dL 71162 009 38517 1 167.00 mg/dL 03845 009 59248 2 164.00 mg/dL 49871 009 51484 1 164.00 mg/dL 27954 009 86943 5 208.00 mg/dL 12592 010 88824 3 98.40 Tympanic 73101 010 84435 5 98.40 Tympanic 96726 010 57806 7 66 [place] [address] 010 84780 4 60.00 mm[Hg] - Sitting 143.00 mm[Hg] - Sitting 98.90 Tympanic 98.00 % 67.00/ min 18.00/min 74740 010 90673 2 214.00 mg/dL 33590 010 36814 0 214.00 mg/dL 03261 010 66374 7 214.00 mg/dL 99561 010 73186 6 64.00 mm[Hg] - Sitting 110.00 mm[Hg] - Sitting 72.00/ min 63034 010 60181 7 98.40 Tympanic 38049 010 09982 1 212.00 mg/dL 60446 010 29582 2 212.00 mg/dL 22840 010 67893 1 115.00 mg/dL 75278 010 16272 0 115.00 mg/dL 59236 010 47677 4 98.50 Tympanic 04816 010 19976 4 150.00 mg/dL 55720 010 92546 0 150.00 mg/dL 30708 011 16287 9 98.60 Tympanic 38102 011 19157 1 67.00 mm[Hg] - Sitting 144.00 mm[Hg] - Sitting 98.20 Tympanic 98.00 % 61.00/ min 18.00/min 14736 011 52287 7 290.00 mg/dL 01603 011 00985 2 290.00 mg/dL 78934 011 83592 2 290.00 mg/dL 00899 011 17527 7 54.00 mm[Hg] - Sitting 136.00 mm[Hg] - Sitting 101.00 /min 57034 011 91006 7 98.60 Tympanic 53357 011 53586 5 240.00 mg/dL 34054 011 97686 1 240.00 mg/dL 84555 011 92263 1 156.00 mg/dL 28744 011 13807 9 156.00 mg/dL 02292 011 69391 0 97.80 Tympanic 53621 011 38252 8 343.00 mg/dL 69270 012 65869 9 97.90 Tympanic 92058 012 24662 2 466.00 mg/dL 38316 012 24826 1 466.00 mg/dL 62697 012 63202 3 466.00 mg/dL 83313 012 89708 8 97.90 Tympanic 93020 012 53841 8 56.00 mm[Hg] - Sitting 96.00 mm[Hg] - Sitting 61.00/ min 06548 012 71313 7 350.00 mg/dL 83730 012 52842 5 350.00 mg/dL 92228 012 12605 6 111.00 mg/dL 11259 012 70910 0 111.00 mg/dL 90915 012 23650 5 98.40 Tympanic 47304 012 49269 6 114.00 mg/dL 73391 013 53361 4 74.00 mm[Hg] - Sitting 112.00 mm[Hg] - Sitting 98.40 Tympanic 70.00/ min 18.00/min 26009 013 08002 8 244.00 mg/dL 59237 013 30120 7 244.00 mg/dL 77314 013 39679 1 244.00 mg/dL 60917 013 03231 1 98.20 Tympanic 47777 013 68490 7 72.00 mm[Hg] - Sitting 119.00 mm[Hg] - Sitting 76.00/ min 19894 013 69661 7 253.00 mg/dL 75883 013 50940 4 253.00 mg/dL 61344 013 18324 9 156.00 mg/dL 13042 013 28278 5 156.00 mg/dL 49420 013 22892 4 97.90 Tympanic 99958 013 76877 5 189.00 mg/dL 64636 014 44431 9 98.10 Tympanic 26485 014 06912 0 61.00 mm[Hg] - Sitting 139.00 mm[Hg] - Sitting 98.20 Forehead Scan 99.00 % 66.00/ min 18.00/min 99800 014 76539 3 169.00 mg/dL 03953 014 28864 3 98.10 Tympanic 98491 014 35713 3 75.00 mm[Hg] - Sitting 121.00 mm[Hg] - Sitting 71.00/ min 52672 014 79596 9 221.00 mg/dL 38626 014 11439 9 62.00 mg/dL 01695 014 36289 5 62.00 mg/dL 22719 014 60522 8 156.00 mg/dL 20595 014 63017 6 98.10 Tympanic 38046 014 63290 7 156.00 mg/dL 05036 015 43450 4 39728 015 57040 7 62.00 mm[Hg] - Sitting 142.00 mm[Hg] - Sitting 98.20 Tympanic 99.00 % 67.00/ min 18.00/min 77395 015 09314 9 120.00 mg/dL 83471 015 90621 7 98.00 Tympanic 92598 015 27600 2 82.00 mm[Hg] - Sitting 119.00 /min 41568 015 64769 9 110.00 mg/dL 15285 015 78304 6 104.00 mg/dL 51631 015 59309 0 100.00 mg/dL 16008 015 54576 2 98.10 Tympanic 48121 015 36172 6 100.00 mg/dL 57545 016 87653 2 67.00 mm[Hg] - Sitting 147.00 mm[Hg] - Sitting 99.00 Tympanic 99.00 % 78.00/ min 20.00/min 71608 016 16751 5 158.00 mg/dL 58875 016 19601 1 158.00 mg/dL 04269 016 83884 2 158.00 mg/dL 34189 016 25951 0 66.00 mm[Hg] - Sitting 121.00 mm[Hg] - Sitting 74.00/ min 15525 016 67006 1 97.00 mg/dL 45137 016 11260 5 97.00 mg/dL 37685 016 63483 4 78.00 mg/dL 05411 016 52893 6 78.00 mg/dL 92722 016 85683 5 248.00 mg/dL 32788 016 21631 8 248.00 mg/dL 52369 017 99285 3 54.00 mm[Hg] - Sitting 142.00 mm[Hg] - Sitting 98.30 Tympanic 99.00 % 76.00/ min 18.00/min 71508 017 66080 4 267.00 mg/dL 43867 017 91049 6 73.00 mm[Hg] - Sitting 109.00 mm[Hg] - Sitting 70.00/ min 27239 017 34703 1 184.00 mg/dL 62159 017 28441 5 184.00 mg/dL 65870 017 17323 9 248.00 mg/dL 86968 017 25054 8 299.00 mg/dL 43773 017 86157 3 299.00 mg/dL 26369 018 09046 7 50.00 mm[Hg] - Sitting 125.00 mm[Hg] - Sitting 98.30 Tympanic 98.00 % 76.00/ min 16.00/min 70734 018 40294 3 168.00 mg/dL 53019 018 95160 0 75.00 mm[Hg] - Sitting 121.00 mm[Hg] - Sitting 70.00/ min 90416 018 68999 7 264.00 mg/dL 18870 018 04087 6 132.00 mg/dL 82426 018 86906 6 154.00 mg/dL 16097 018 75312 6 154.00 mg/dL 54673 019 85523 4 63.00 mm[Hg] - Sitting 147.00 mm[Hg] - Sitting 98.50 Tympanic 99.00 % 69.00/ min 18.00/min 70401 019 35796 9 159.00 mg/dL 23743 019 16438 8 73.00 mm[Hg] - Sitting 110.00 mm[Hg] - Sitting 72.00/ min 36209 019 45139 4 191.00 mg/dL 72348 019 80418 8 70.00 mg/dL 17333 019 13132 4 70.00 mg/dL 78253 019 92499 6 198.00 mg/dL 88412 019 61750 0 198.00 mg/dL 47117 020 95786 2 59.00 mm[Hg] - Sitting 131.00 mm[Hg] - Sitting 98.90 Tympanic 99.00 % 69.00/ min 18.00/min 92254 020 84145 7 299.00 mg/dL 74388 020 88317 0 62.00 mm[Hg] - Sitting 132.00 mm[Hg] - Sitting 68.00/ min 54175 020 98001 3 299.00 mg/dL 26478 020 97031 3 299.00 mg/dL 04049 020 50785 9 220.00 mg/dL 23336 020 42329 1 220.00 mg/dL 23938 020 44412 1 270.00 mg/dL 00737 020 99753 4 270.00 mg/dL 32814 020 87518 9 143.00 mg/dL 53676 020 49552 4 143.00 mg/dL 02401 021 57162 0 59.00 mm[Hg] - Sitting 121.00 mm[Hg] - Sitting 98.40 Forehead Scan 98.00 % 70.00/ min 16.00/min 38511 021 34618 0 140.00 mg/dL 72891 021 28364 0 67.00 mm[Hg] - Sitting 130.00 mm[Hg] - Sitting 68.00/ min 76772 021 17455 8 140.00 mg/dL 53223 021 96915 6 140.00 mg/dL 86253 021 52805 8 156.00 mg/dL 23461 021 11315 1 156.00 mg/dL 34324 021 02484 5 146.00 mg/dL 19375 021 45333 4 146.00 mg/dL 64320 021 49163 5 183.00 mg/dL 69284 021 39896 2 183.00 mg/dL 01545 022 39955 3 76811 022 70767 1 43.00 mm[Hg] - Sitting 113.00 mm[Hg] - Sitting 97.80 Tympanic 97.00 % 64.00/ min 18.00/min 34526 022 61574 6 270.00 mg/dL 32876 022 12763 5 68.00 mm[Hg] - Sitting 122.00 mm[Hg] - Sitting 67.00/ min 12466 022 81791 9 270.00 mg/dL 54664 022 92693 4 270.00 mg/dL 47654 022 23640 4 207.00 mg/dL 49704 022 71911 8 207.00 mg/dL 64887 022 83810 9 217.00 mg/dL 85361 022 57067 2 217.00 mg/dL 79412 022 35154 0 192.00 mg/dL 24127 022 95848 9 192.00 mg/dL 72470 023 48626 8 48.00 mm[Hg] - Sitting 116.00 mm[Hg] - Sitting 98.50 Tympanic 97.00 % 63.00/ min 18.00/min 85890 023 62415 9 68.00 mm[Hg] - Sitting 131.00 mm[Hg] - Sitting 68.00/ min 81500 023 86034 8 235.00 mg/dL 58344 023 43021 4 235.00 mg/dL 10189 023 49978 0 235.00 mg/dL 07284 023 52998 0 199.00 mg/dL 02904 023 84496 7 199.00 mg/dL 73438 023 18739 4 233.00 mg/dL 55176 023 85674 3 233.00 mg/dL 08863 023 03054 6 229.00 mg/dL 14220 023 13133 4 229.00 mg/dL 16538 024 78585 3 58.00 mm[Hg] - Sitting 102.00 mm[Hg] - Sitting 58.00/ min 35821 024 92791 9 156.00 mg/dL 60333 024 09816 4 156.00 mg/dL 07618 024 61426 3 156.00 mg/dL 01763 024 85725 0 343.00 mg/dL 75940 024 54897 6 343.00 mg/dL 17612 024 26147 2 167.00 mg/dL 15973 024 17855 0 167.00 mg/dL 53368 024 98519 8 155.00 mg/dL 45660 024 48829 7 155.00 mg/dL 42840 025 44646 0 51.00 mm[Hg] - Lying Down 109.00 mm[Hg] - Lying Down 98.60 Tympanic 95.00 % 67.00/ min 20.00/min 11784 025 98489 0 60.00 mm[Hg] - Sitting 118.00 mm[Hg] - Sitting 98.30 Forehead Scan 98.00 % 68.00/ min 16.00/min 33411 025 14112 3 235.00 mg/dL 02797 025 00196 1 63.00 mm[Hg] - Sitting 110.00 mm[Hg] - Sitting 75.00/ min 21645 025 58088 9 295.00 mg/dL 45544 025 30183 4 94.00 mg/dL 08772 025 20338 1 132.00 mg/dL 21958 025 94297 2 132.00 mg/dL 08089 026 14774 8 50.00 mm[Hg] - Sitting 123.00 mm[Hg] - Sitting 98.50 Tympanic 95.00 % 66.00/ min 18.00/min 54589 026 44419 0 275.00 mg/dL 75846 026 50331 7 275.00 mg/dL 72681 026 02869 1 275.00 mg/dL 24255 026 23100 6 67.00 mm[Hg] - Sitting 123.00 mm[Hg] - Sitting 66.00/ min 49860 026 96934 3 187.00 mg/dL 57744 026 31849 5 187.00 mg/dL 55892 026 48556 0 167.00 mg/dL 75241 026 87484 8 167.00 mg/dL 80592 026 69521 6 387.00 mg/dL 01207 027 02371 7 53.00 mm[Hg] - Sitting 132.00 mm[Hg] - Sitting 98.60 Tympanic 97.00 % 64.00/ min 18.00/min 76557 027 66305 9 189.00 mg/dL 30893 027 60042 4 67.00 mm[Hg] - Sitting 118.00 mm[Hg] - Sitting 66.00/ min 58875 027 58693 2 189.00 mg/dL 58977 027 38369 7 189.00 mg/dL 91257 027 15302 1 105.00 mg/dL 74345 027 03647 8 105.00 mg/dL 23067 027 93317 4 223.00 mg/dL 45476 027 18444 9 223.00 mg/dL 35660 027 53733 9 164.00 mg/dL 65354 028 77519 0 68.00 mm[Hg] - Sitting 115.00 mm[Hg] - Sitting 98.60 Forehead Scan 96.00 % 71.00/ min 16.00/min 22131 028 89436 1 200.00 mg/dL 40807 028 31861 9 200.00 mg/dL 27183 028 58018 1 69.00 mm[Hg] - Sitting 122.00 mm[Hg] - Sitting 67.00/ min 03055 028 26056 3 200.00 mg/dL 34274 028 99752 0 117.00 mg/dL 69052 028 75211 0 117.00 mg/dL 22007 028 88040 1 114.00 mg/dL 64691 028 23754 7 114.00 mg/dL 03649 028 22361 0 179.00 mg/dL 37499 028 50736 8 179.00 mg/dL 99607 029 03222 4 44.00 mm[Hg] - Sitting 121.00 mm[Hg] - Sitting 98.30 Tympanic 97.00 % 65.00/ min 18.00/min 69842 029 93411 9 147.00 mg/dL 73710 029 89321 0 147.00 mg/dL 93209 029 73155 4 147.00 mg/dL 37625 029 42970 1 63.00 mm[Hg] - Sitting 118.00 mm[Hg] - Sitting 74.00/ min 46913 029 60023 2 278.00 mg/dL 21250 029 04994 3 278.00 mg/dL 45515 029 52401 1 241.00 mg/dL 93177 029 85900 8 13808 029 02828 1 504.00 mg/dL 64428 030 83748 4 242.00 mg/dL 030 97954 8 68.00 mm[Hg] - Sitting 121.00 mm[Hg] - Sitting 68.00/ min 030 62358 2 242.00 mg/dL 030 19473 3 170.00 mg/dL 030 10897 0 170.00 mg/dL Immunizations Vaccine Date Status COVID-19 09/20/2023 Completed Influenza 09/14/2024 Completed Other 10/08/2023 Completed Shingles 05/27/2011 Completed Tetanus 04/13/2022 Completed TDaP 04/13/2022 Completed Shingles 2 10/05/2018 Completed
--- OUTSIDE RECORDS SUMMARY | 2024-10-03 10:55 | External Medical Summary | Continuity Of Care Document ---
Author Name Unknown Address [address] [address] Organization [facility] () Care Team Providers Care Youth Director Name Role Phone DO Machado Amy Primary Care Provider [phone] Allergies Allergy Reaction Start Date End Date [...] 3 0.1 mL 08/29 Inactiv e 2023 56354 60401 0 1 time Intrad ermal False Tubersol 5 tub. unit/0.1 mL intradermal injection solution [Tuberculin PPD] 0.1mL Intradermal 1 time For PPD 2nd Step Give 2nd Step PPD Day 1 and Read results Day 3 (schedule 7 days after 1st READ) 0.1mL 09/08 Inactiv e 2023 51001 67218 0 1 time Intrad ermal False [facility] - Nurse initials indicate verificatio n that [id number] vaccine was administere d by [facility] [...] order For Diabetes 08/25 Inactiv e 2023 25984 63593 9 4 times a day Subcut aneous False Aspirin 325 mg tablet [generic] 325 By Mouth Twice daily For Anticoagulati on 325 09/25 Active 2023 96078 62625 1 Twice daily By Mouth False Ferrous sulfate 325 mg (65 mg iron) tablet [generic] 325 By Mouth Once daily For anemia 325 2023 Active 2023 26059 23041 5 Once daily By Mouth False Linezolid 600 mg tablet [generic] 600 mg By Mouth Every 12 hours For MRSA INFECTION L BKA 600 mg 08/25 Inactiv e 2023 41466 30146 1 Every 12 hours By Mouth False Cefpodoxime 200 mg tablet [generic] 400 mg By Mouth Twice daily For MRSA INFECTION L BKA 400 mg 08/25 Inactiv e 2023 94869 06301 0 Twice daily By Mouth False Coenzyme Q10 100 mg tablet [generic] 100 mg By Mouth Once daily For SUPP 100 mg 2023 Active 2023 59977 55301 0 Once daily By Mouth False Levothyroxi ne 50 mcg tablet [generic] 50mcg By Mouth Once daily For hypothyroidis m 50mcg 2023 Active 2023 49240 67783 0 Once daily By Mouth False One A Day Men Complete 240 mcg-25 mcg-300 mcg tablet 1 tab By Mouth Once daily For supplement 1 tab 2023 Active 2023 80176 91439 1 Once daily By Mouth False Cholecalcif adalberto (vitamin D3) 50 mcg (2,000 unit) tablet [generic] 1 TAB By Mouth Once daily For SUPP 1 TAB 2023 Active 2023 22860 68884 1 Once daily By Mouth False Cetirizine 10 mg tablet [generic] 1 TAB By Mouth At bedtime For Allergies 1 TAB 2023 Active 2023 34291 78570 0 At bedtime By Mouth False Timolol maleate 0.25 % eye drops [generic] 1 drop Both Eyes Twice daily For glaucoma 1 drop 2023 Active 2023 07265 03612 5 Twice daily Both Eyes False Alendronate 35 mg tablet [generic] 35mg By Mouth Every week For SIADH 35mg 08/31 Inactiv e 2023 64482 21690 5 Every week By Mouth False Lantus Solostar U-100 Insulin 100 unit/mL (3 mL) subcutaneou s pen 18 units Subcutaneous Every morning For DIABETES 18 units 08/25 Inactiv e 2023 40944 48200 0 Every morning Subcut aneous False Lantus Solostar U-100 Insulin 100 unit/mL (3 mL) subcutaneou s pen 18 units Subcutaneous Every morning For DIABETES 18 units 2023 Active 2023 65236 28289 0 Every morning Subcut aneous False Linezolid 600 mg tablet [generic] 600 mg By Mouth Every 12 hours For MRSA INFECTION L BKA 600 mg 08/28 Inactiv e 2023 32296 79453 1 Every 12 hours By Mouth False [...] order For Diabetes 08/31 Inactiv e 2023 31983 76390 9 4 times a day Subcut aneous False Cefpodoxime 200 mg tablet [generic] 400 mg By Mouth Twice daily For MRSA INFECTION L BKA 400 mg 08/28 Inactiv e 2023 91980 72113 0 Twice daily By Mouth False Brimonidine 0.1 % eye drops [generic] 1 drop Both Eyes Twice daily For glaucoma 1 drop 2023 Active 2023 14411 81202 0 Twice daily Both Eyes False Metoprolol succinate ER 50 mg tablet,exte nded release 24 hr [generic] 50 mg By Mouth Once daily HOLD FOR SBP <100, or pulse <60 For HTN 50 mg 2023 Active 2023 67870 96604 1 Once daily By Mouth False Amlodipine 2.5 mg tablet [generic] 2.5 mg By Mouth Once daily For HTN 2.5 mg 2023 Active 2023 81722 87190 5 Once daily By Mouth False Docusate sodium 100 mg capsule [generic] 100mg By Mouth Twice daily as needed For constipation HOLD FOR LOOSE STOOLS 100mg 2023 Active 2023 94988 38570 1 Twice daily as needed By Mouth False Atorvastati n 40 mg tablet [generic] 40mg By Mouth Once daily For HDL 40mg 08/26 Inactiv e 2023 28404 94379 5 Once daily By Mouth False Tylenol 325 mg tablet 2 tabs By Mouth Every 4 hours as needed For Pain DO NOT EXCEED 3000 MG APAP/24 Hours 2 tabs 2023 Active 2023 69130 68938 0 Every 4 hours as needed By Mouth False Tylenol 325 mg tablet 2 tabs By Mouth Every 4 hours as needed For Fever >100 DO NOT EXCEED 3000 MG APAP/24 Hours 2 tabs 2023 Active 2023 37395 07201 0 Every 4 hours as needed By Mouth False Dulcolax (bisacodyl) 10 mg rectal suppository One Suppository per rectum PRN if Milk of Magnisia ineffective. Give on day 5 of no BM 1 sup 2023 Active 2023 11088 21749 1 Daily as needed Rectal False Fleet Enema 19 gram-7 gram/118 mL Administer per rectum PRN one time if dulcolax suppository not effective. Give on day 6 of no BM 1 2023 Active 2023 06259 78560 6 Daily as needed Rectal False Dextrose 50 % in water (D50W) intravenous solution [generic] Dextrose 50% evonne 20-50 ml (slow push) Intravenous if Glucagon not effective after 15 minutes. CALL 911 for ED Evaluation. 50% evonne 2023 Active 2023 10326 43045 9 Intrav enous False Glucagon (HCl) Emergency Kit 1 mg solution for injection Administer Glucagon 1 mg Intramuscular if 15 minutes after GLucose Gel is administered Glucose remains less than 70 1 mg 2023 Active 2023 14085 14838 2 Intram uscula r False Glucose Gel 40 % oral gel [Dextrose] PRN If resident is unable to swallow (with or without symptoms) and Glucose results less than 70 give GLucose 40% Gel 1 tube orally - Recheck Glucose 15 minutes after administratio n. 1 tube 2023 Active 2023 02487 43203 8 By Mouth False Milk of Magnesia 400 mg/5 mL oral suspension [Magnesium hydroxide] PRN 30ml By Mouth Daily as needed for constipation one time daily if no BM, on day 4 of no BM (PRN refer to instructions) For Constipation 30 mL 2023 Active 2023 19670 35830 6 Daily as needed By Mouth False Atorvastati n 40 mg tablet [generic] 08/26 Inactiv e 2023 10927 87578 5 Atorvastati n 40 mg tablet [generic] 40mg By Mouth Once daily For HDL 40mg 2023 Active 2023 11168 58578 5 Once daily By Mouth False Insulin aspart (U-100) 100 unit/mL (3 mL) subcutaneou s pen [generic] 15 units Subcutaneous 1 time For dm 15 units 08/26 Inactiv e 2023 43061 82210 5 1 time Subcut aneous False Humalog KwikPen (U-100) Insulin 100 unit/mL subcutaneou s 15 units Subcutaneous 1 time For dm 15 units 08/27 Inactiv e 2023 36571 29079 9 1 time Subcut aneous False Linezolid 600 mg tablet [generic] 600 mg By Mouth Every 12 hours For MRSA INFECTION L BKA 600 mg 09/06 Inactiv e 2023 07524 95699 1 Every 12 hours By Mouth False Cefpodoxime 200 mg tablet [generic] 400 mg By Mouth Twice daily For MRSA INFECTION L BKA 400 mg 08/31 Inactiv e 2023 65690 55488 0 Twice daily By Mouth False Senna 8.6 mg tablet 8.6 mg By Mouth Once daily For Constipation 8.6 mg 09/07 Inactiv e 2023 39811 30682 1 Once daily By Mouth False Humalog [...] . Per Carb 09/19 Inactiv e 2023 86919 70479 9 4 times a day Subcut aneous False Alendronate 35 mg tablet [generic] 08/31 Inactiv e 2023 58318 21725 5 Alendronate 35 mg tablet [generic] 35mg By Mouth Every week For Osteoporosis 35mg 2023 00/00 /0000 Active 2023 67609 17048 5 Every week By Mouth False ProSource 10 gram-100 kcal/30 mL oral liquid 30 ml By Mouth Once daily For wound healing 30 ml 2023 Active 2023 45565 06782 2 Once daily By Mouth False Clotrimazol e 1 % topical cream [generic] 1 applicaiton Topical Twice daily For tinea, apply to groin rash after cleansing and throughouly drying. Can discontinue order 3 days after rash resolves. 1 applica stacy 09/08 Inactiv e 2023 59973 89122 0 Twice daily Topica l False MAGIC MIX 1:1:1:1 : ZINC OXIDE EXTERNAL OINTMENT 40%; HYDROCOTISO NE EXTERNAL CREAM 1%; NYSTATIN EXTERNAL CREAM [id number]/GM; SILVADENE CREAM 1% Every shift Apply topically to MASD area on coccyx/buttoc ks each shift and as needed for incontinence care For MASD on coccyx layer 2023 Active 2023 Every shift Topica l False Senna 8.6 mg tablet 8.6 mg By Mouth Once daily For Constipation 8.6 mg 09/07 Inactiv e 2023 16726 66322 1 Once daily By Mouth False Senna 8.6 mg tablet 8.6 mg By Mouth Once daily As Needed For Constipation 8.6 mg 2023 Active 2023 89937 82038 1 Once daily By Mouth False BD AutoShield Duo Pen Needle 30 gauge x 3/16in 1 pen needle Subcutaneous 4 times a day For DM 1 pen needle 2023 Active 2023 57854 12128 5 4 times a day Subcut aneous False Hydrocortis one 1 % topical ointment [generic] 1 application Topical Twice daily For tinea *mix 1:1 with clotrimazole cream and apply to clean/dry groin rash 1 applica peggy 09/19 Inactiv e 2023 84987 97535 6 Twice daily Topica l False Clotrimazol e 1 % topical cream [generic] 1 applicaiton Topical Twice daily For tinea, apply to groin rash after cleansing and throughouly drying. MIX WITH HYDROCORTISON E Can discontinue order 3 days after rash resolves. 1 applica stacy 2023 Active 2023 89110 59680 0 Twice daily Topica l False Humalog KwikPen (U-100) Insulin 100 unit/mL subcutaneou s 09/19 Inactiv e 2023 29840 13733 9 Humalog KwikPen (U-100) Insulin 100 unit/mL [...] abnormalities . Per Carb 2023 Active 2023 33869 20912 9 4 times a day Subcut aneous False Humalog KwikPen (U-100) Insulin 100 unit/mL subcutaneou s 10 units Subcutaneous 1 time For DM 10 units 09/20 Inactiv e 2023 08228 32707 9 1 time Subcut aneous False Humalog KwikPen (U-100) Insulin 100 unit/mL subcutaneou s 08/31 Inactiv e 2023 99945 42383 9 MediHoney HCS 4 1/2in X 4 1/2in bandage Cleanse area with NSS, apply one mediney hydrocolloid dressing, non adherent dressing, kerlix secure with paper tape daily. For wound stage III 1 09/19 Inactiv e 2023 82710 92884 1 Once daily Topica l False Betadine 10 % topical solution wound care cleanse withnormal saline, apply gauze soaked in betadine, leave on 5 minutes pat dry leave open to air 1 2023 Active 2023 15312 43596 1 Once daily Topica l False Problems Code Description Start Date End Date Status D64.9 Anemia, unspecified 08/25/2024 Activ e I25.10 Atherosclerotic hear t disease of [place] coronary artery without angina pectoris 08/25/2024 Active [...] weight Temperature SpO2 Blood Sugar Pulse Respirations 27728 004 63071 8 67.00 mm[Hg] - Sitting 145.00 mm[Hg] - Sitting 98.50 Forehead Scan 96.00 % 81.00/ min 16.00/min 42495 004 59310 2 67.00 mm[Hg] - Sitting 145.00 mm[Hg] - Sitting 98.50 Tympanic 81.00/ min 16.00/min 57259 004 71559 5 56.00 mm[Hg] - Sitting 142.00 mm[Hg] - Sitting 136.40 NI 100.20 Tympanic 96.00 % 92.00/ min 18.00/min 57808 004 20435 6 94243 004 17231 4 143.00 mg/dL 26765 004 70618 0 97.80 Tympanic 06934 005 59685 7 60.00 mm[Hg] - Sitting 140.00 mm[Hg] - Sitting 98.00 Tympanic 84.00/ min 18.00/min 93057 005 81824 0 63.00 mm[Hg] - Sitting 141.00 mm[Hg] - Sitting 98.20 Tympanic 92.00 % 63.00/ min 16.00/min 36452 005 26935 8 69.00 mm[Hg] - Sitting 106.00 mm[Hg] - Sitting 97.20 Tympanic 88584 005 22880 7 69.00/ min 16.00/min 59097 005 01409 3 69.00 mm[Hg] - Sitting 106.00 mm[Hg] - Sitting 98.20 Tympanic 69.00/ min 16.00/min 54807 005 49927 1 367.00 mg/dL 96740 005 91878 2 97.20 Tympanic 00643 005 74161 4 97.20 Tympanic 05953 005 08780 0 69.00 mm[Hg] - Sitting 106.00 mm[Hg] - Sitting 69.00/ min 02846 005 32504 3 452.00 mg/dL 95502 005 03058 3 452.00 mg/dL 18683 005 21704 5 352.00 mg/dL 94546 005 69857 3 352.00 mg/dL 29764 005 58256 7 98.20 Tympanic 94570 005 76844 3 101.00 mg/dL 63219 005 54314 8 101.00 mg/dL 31518 006 13316 4 66.00 mm[Hg] - Sitting 107.00 mm[Hg] - Sitting 98.00 Tympanic 66.00/ min 18.00/min 24373 006 53754 0 62.00 mm[Hg] - Sitting 162.00 mm[Hg] - Sitting 98.20 Tympanic 96.00 % 60.00/ min 16.00/min 93893 006 39961 4 62.00 mm[Hg] - Sitting 162.00 mm[Hg] - Sitting 98.00 Tympanic 70.00/ min 18.00/min 82637 006 10645 8 62.00 mm[Hg] - Sitting 162.00 mm[Hg] - Sitting 98.20 Tympanic 70.00/ min 18.00/min 69035 006 69318 2 66.00 mm[Hg] - Sitting 132.00 mm[Hg] - Sitting 98.60 Tympanic 74.00/ min 16.00/min 98374 006 35647 5 159.00 mg/dL 61249 006 77734 1 159.00 mg/dL 59981 006 18729 8 98.00 Tympanic 81008 006 37195 2 62.00 mm[Hg] - Sitting 162.00 mm[Hg] - Sitting 70.00/ min 13824 006 28822 7 264.00 mg/dL 10334 006 98000 7 264.00 mg/dL 17179 006 98596 4 196.00 mg/dL 48465 006 31858 3 98.20 Tympanic 39845 006 46152 6 271.00 mg/dL 64505 007 23774 3 97.20 Tympanic 67299 007 50082 2 63.00 mm[Hg] - Sitting 132.00 mm[Hg] - Sitting 98.50 Tympanic 94.00 % 66.00/ min 16.00/min 18946 007 57888 5 188.00 mg/dL 40140 007 98215 2 188.00 mg/dL 94804 007 53972 2 188.00 mg/dL 48338 007 33962 7 97.20 Tympanic 31226 007 54231 6 97.20 Tympanic 31172 007 15252 5 67.00 mm[Hg] - Sitting 152.00 mm[Hg] - Sitting 68.00/ min 18848 007 36266 0 141.00 mg/dL 63974 007 59886 3 141.00 mg/dL 99731 007 88813 1 366.00 mg/dL 70913 007 22953 7 366.00 mg/dL 28444 007 05493 7 98.00 Tympanic 59864 007 93340 6 324.00 mg/dL 45002 007 99745 3 98.00 Tympanic 78258 007 81228 7 324.00 mg/dL 48476 008 66362 0 98.00 Tympanic 39893 008 67083 2 97.90 Tympanic 58032 008 49590 0 98.20 Tympanic 27726 008 95941 0 73.00 mm[Hg] - Sitting 156.00 mm[Hg] - Sitting 98.60 Tympanic 99.00 % 66.00/ min 20.00/min 30710 008 39838 5 137.00 mg/dL 76210 008 15634 7 137.00 mg/dL 39231 008 55706 2 97.90 Tympanic 07889 008 67498 1 137.00 mg/dL 33290 008 57300 8 97.90 Tympanic 99455 008 00605 5 67.00 mm[Hg] - Sitting 124.00 /min 20616 008 03671 6 212.00 mg/dL 57961 008 58534 6 212.00 mg/dL 52142 008 09548 9 317.00 mg/dL 09678 008 86997 4 317.00 mg/dL 12277 008 94998 8 252.00 mg/dL 71034 008 47254 0 98.70 Tympanic 18518 008 99964 7 252.00 mg/dL 91093 008 85284 3 98.70 Tympanic 69879 009 08284 9 98.70 Tympanic 97781 009 01288 3 98.20 Tympanic 09297 009 17631 5 98.40 Tympanic 70554 009 39789 5 57.00 mm[Hg] - Sitting 129.00 mm[Hg] - Sitting 98.30 Tympanic 97.00 % 65.00/ min 18.00/min 25777 009 01687 1 255.00 mg/dL 69166 009 65603 4 255.00 mg/dL 08008 009 93610 5 98.20 Tympanic 28164 009 14344 0 255.00 mg/dL 18099 009 90584 0 98.20 Tympanic 80616 009 06686 4 63.00 mm[Hg] - Lying Down 102.00 mm[Hg] - Lying Down 58.00/ min 06264 009 77091 0 167.00 mg/dL 36125 009 31916 1 167.00 mg/dL 35213 009 34133 2 164.00 mg/dL 43000 009 87602 1 164.00 mg/dL 19391 009 49370 5 208.00 mg/dL 44859 010 70183 3 98.40 Tympanic 76328 010 16918 5 98.40 Tympanic 82066 010 94316 7 66 NI 63733 010 96349 4 60.00 mm[Hg] - Sitting 143.00 mm[Hg] - Sitting 98.90 Tympanic 98.00 % 67.00/ min 18.00/min 22664 010 11034 2 214.00 mg/dL 10546 010 73368 0 214.00 mg/dL 92612 010 09924 7 214.00 mg/dL 66219 010 62613 6 64.00 mm[Hg] - Sitting 110.00 mm[Hg] - Sitting 72.00/ min 36815 010 03313 7 98.40 Tympanic 76740 010 20051 1 212.00 mg/dL 07419 010 89056 2 212.00 mg/dL 79112 010 35490 1 115.00 mg/dL 17905 010 58358 0 115.00 mg/dL 62652 010 34823 4 98.50 Tympanic 86416 010 05412 4 150.00 mg/dL 53087 010 64758 0 150.00 mg/dL 80075 011 16404 9 98.60 Tympanic 60877 011 25940 1 67.00 mm[Hg] - Sitting 144.00 mm[Hg] - Sitting 98.20 Tympanic 98.00 % 61.00/ min 18.00/min 68842 011 33455 7 290.00 mg/dL 29756 011 46331 2 290.00 mg/dL 34425 011 68859 2 290.00 mg/dL 20533 011 67661 7 54.00 mm[Hg] - Sitting 136.00 mm[Hg] - Sitting 101.00 /min 30340 011 47627 7 98.60 Tympanic 38878 011 23145 5 240.00 mg/dL 17713 011 08483 1 240.00 mg/dL 60450 011 97933 1 156.00 mg/dL 34153 011 49582 9 156.00 mg/dL 02312 011 01348 0 97.80 Tympanic 08754 011 69193 8 343.00 mg/dL 25846 012 16445 9 97.90 Tympanic 76058 012 19760 2 466.00 mg/dL 74573 012 93005 1 466.00 mg/dL 56631 012 72215 3 466.00 mg/dL 81400 012 01948 8 97.90 Tympanic 30314 012 14623 8 56.00 mm[Hg] - Sitting 96.00 mm[Hg] - Sitting 61.00/ min 45265 012 96363 7 350.00 mg/dL 32716 012 50600 5 350.00 mg/dL 79359 012 92394 6 111.00 mg/dL 14174 012 70473 0 111.00 mg/dL 25248 012 20575 5 98.40 Tympanic 99190 012 77994 6 114.00 mg/dL 89073 013 24574 4 74.00 mm[Hg] - Sitting 112.00 mm[Hg] - Sitting 98.40 Tympanic 70.00/ min 18.00/min 56886 013 74271 8 244.00 mg/dL 95740 013 26259 7 244.00 mg/dL 42812 013 95694 1 244.00 mg/dL 72814 013 53702 1 98.20 Tympanic 56981 013 20373 7 72.00 mm[Hg] - Sitting 119.00 mm[Hg] - Sitting 76.00/ min 68733 013 15501 7 253.00 mg/dL 06438 013 80975 4 253.00 mg/dL 29060 013 86097 9 156.00 mg/dL 51499 013 36288 5 156.00 mg/dL 63923 013 98577 4 97.90 Tympanic 11836 013 08843 5 189.00 mg/dL 55931 014 72101 9 98.10 Tympanic 80313 014 18315 0 61.00 mm[Hg] - Sitting 139.00 mm[Hg] - Sitting 98.20 Forehead Scan 99.00 % 66.00/ min 18.00/min 66364 014 17286 3 169.00 mg/dL 18673 014 04613 3 98.10 Tympanic 43186 014 82676 3 75.00 mm[Hg] - Sitting 121.00 mm[Hg] - Sitting 71.00/ min 57972 014 28302 9 221.00 mg/dL 74260 014 40238 9 62.00 mg/dL 06710 014 12572 5 62.00 mg/dL 93995 014 62357 8 156.00 mg/dL 81252 014 51026 6 98.10 Tympanic 39337 014 12867 7 156.00 mg/dL 62086 015 64151 4 45328 015 38354 7 62.00 mm[Hg] - Sitting 142.00 mm[Hg] - Sitting 98.20 Tympanic 99.00 % 67.00/ min 18.00/min 78053 015 41377 9 120.00 mg/dL 25273 015 91581 7 98.00 Tympanic 55599 015 92524 2 82.00 mm[Hg] - Sitting 119.00 /min 38429 015 71475 9 110.00 mg/dL 33970 015 60249 6 104.00 mg/dL 17023 015 01042 0 100.00 mg/dL 75360 015 87325 2 98.10 Tympanic 40818 015 65428 6 100.00 mg/dL 22754 016 24614 2 67.00 mm[Hg] - Sitting 147.00 mm[Hg] - Sitting 99.00 Tympanic 99.00 % 78.00/ min 20.00/min 34734 016 28066 5 158.00 mg/dL 60602 016 33788 1 158.00 mg/dL 90992 016 06447 2 158.00 mg/dL 69363 016 36200 0 66.00 mm[Hg] - Sitting 121.00 mm[Hg] - Sitting 74.00/ min 66024 016 37607 1 97.00 mg/dL 14415 016 38359 5 97.00 mg/dL 17807 016 18913 4 78.00 mg/dL 41042 016 32647 6 78.00 mg/dL 46999 016 55411 5 248.00 mg/dL 08237 016 70778 8 248.00 mg/dL 01426 017 54259 3 54.00 mm[Hg] - Sitting 142.00 mm[Hg] - Sitting 98.30 Tympanic 99.00 % 76.00/ min 18.00/min 40742 017 25434 4 267.00 mg/dL 53943 017 73356 6 73.00 mm[Hg] - Sitting 109.00 mm[Hg] - Sitting 70.00/ min 82263 017 27439 1 184.00 mg/dL 88538 017 93535 5 184.00 mg/dL 70164 017 97351 9 248.00 mg/dL 09759 017 11357 8 299.00 mg/dL 12145 017 94005 3 299.00 mg/dL 23868 018 10405 7 50.00 mm[Hg] - Sitting 125.00 mm[Hg] - Sitting 98.30 Tympanic 98.00 % 76.00/ min 16.00/min 75364 018 32151 3 168.00 mg/dL 80393 018 45494 0 75.00 mm[Hg] - Sitting 121.00 mm[Hg] - Sitting 70.00/ min 49983 018 49446 7 264.00 mg/dL 65124 018 63169 6 132.00 mg/dL 81862 018 88228 6 154.00 mg/dL 68119 018 30436 6 154.00 mg/dL 03835 019 00066 4 63.00 mm[Hg] - Sitting 147.00 mm[Hg] - Sitting 98.50 Tympanic 99.00 % 69.00/ min 18.00/min 54533 019 55010 9 159.00 mg/dL 46279 019 51367 8 73.00 mm[Hg] - Sitting 110.00 mm[Hg] - Sitting 72.00/ min 36204 019 55003 4 191.00 mg/dL 71440 019 76790 8 70.00 mg/dL 93584 019 80532 4 70.00 mg/dL 54826 019 21705 6 198.00 mg/dL 96799 019 39395 0 198.00 mg/dL 77431 020 77493 2 59.00 mm[Hg] - Sitting 131.00 mm[Hg] - Sitting 98.90 Tympanic 99.00 % 69.00/ min 18.00/min 96540 020 24845 7 299.00 mg/dL 68600 020 64593 0 62.00 mm[Hg] - Sitting 132.00 mm[Hg] - Sitting 68.00/ min 52344 020 33541 3 299.00 mg/dL 23123 020 78372 3 299.00 mg/dL 02071 020 58968 9 220.00 mg/dL 03831 020 75081 1 220.00 mg/dL 20173 020 89970 1 270.00 mg/dL 09067 020 63516 4 270.00 mg/dL 86168 020 30070 9 143.00 mg/dL 14682 020 91401 4 143.00 mg/dL 66223 021 54198 0 59.00 mm[Hg] - Sitting 121.00 mm[Hg] - Sitting 98.40 Forehead Scan 98.00 % 70.00/ min 16.00/min 70508 021 61514 0 140.00 mg/dL 95342 021 59531 0 67.00 mm[Hg] - Sitting 130.00 mm[Hg] - Sitting 68.00/ min 45996 021 81694 8 140.00 mg/dL 66974 021 19419 6 140.00 mg/dL 63518 021 69388 8 156.00 mg/dL 62838 021 11698 1 156.00 mg/dL 32772 021 18407 5 146.00 mg/dL 01522 021 64621 4 146.00 mg/dL 92428 021 63052 5 183.00 mg/dL 78265 021 97569 2 183.00 mg/dL 37954 022 47332 3 63403 022 86773 1 43.00 mm[Hg] - Sitting 113.00 mm[Hg] - Sitting 97.80 Tympanic 97.00 % 64.00/ min 18.00/min 25072 022 20312 6 270.00 mg/dL 52184 022 76634 5 68.00 mm[Hg] - Sitting 122.00 mm[Hg] - Sitting 67.00/ min 88365 022 12044 9 270.00 mg/dL 57371 022 68858 4 270.00 mg/dL 49838 022 32986 4 207.00 mg/dL 72164 022 88080 8 207.00 mg/dL 95743 022 81290 9 217.00 mg/dL 13055 022 28281 2 217.00 mg/dL 37106 022 32764 0 192.00 mg/dL 21912 022 00855 9 192.00 mg/dL 46893 023 80880 8 48.00 mm[Hg] - Sitting 116.00 mm[Hg] - Sitting 98.50 Tympanic 97.00 % 63.00/ min 18.00/min 56909 023 30073 9 68.00 mm[Hg] - Sitting 131.00 mm[Hg] - Sitting 68.00/ min 80576 023 91856 8 235.00 mg/dL 38036 023 78364 4 235.00 mg/dL 02450 023 21787 0 235.00 mg/dL 07005 023 08071 0 199.00 mg/dL 98365 023 80574 7 199.00 mg/dL 42709 023 18278 4 233.00 mg/dL 12989 023 10577 3 233.00 mg/dL 13179 023 92089 6 229.00 mg/dL 32005 023 19691 4 229.00 mg/dL 94069 024 71599 3 58.00 mm[Hg] - Sitting 102.00 mm[Hg] - Sitting 58.00/ min 85681 024 04045 9 156.00 mg/dL 90115 024 57998 4 156.00 mg/dL 79412 024 14115 3 156.00 mg/dL 37112 024 14349 0 343.00 mg/dL 25932 024 89060 6 343.00 mg/dL 11601 024 23690 2 167.00 mg/dL 47073 024 18643 0 167.00 mg/dL 16456 024 74475 8 155.00 mg/dL 60497 024 68113 7 155.00 mg/dL 01089 025 18239 0 51.00 mm[Hg] - Lying Down 109.00 mm[Hg] - Lying Down 98.60 Tympanic 95.00 % 67.00/ min 20.00/min 71382 025 36601 0 60.00 mm[Hg] - Sitting 118.00 mm[Hg] - Sitting 98.30 Forehead Scan 98.00 % 68.00/ min 16.00/min 70358 025 78493 3 235.00 mg/dL 90325 025 36758 1 63.00 mm[Hg] - Sitting 110.00 mm[Hg] - Sitting 75.00/ min 33549 025 24214 9 295.00 mg/dL 07693 025 99567 4 94.00 mg/dL 64643 025 39633 1 132.00 mg/dL 67590 025 78368 2 132.00 mg/dL 97354 026 39515 8 50.00 mm[Hg] - Sitting 123.00 mm[Hg] - Sitting 98.50 Tympanic 95.00 % 66.00/ min 18.00/min 11826 026 03299 0 275.00 mg/dL 12939 026 07521 7 275.00 mg/dL 65960 026 69606 1 275.00 mg/dL 49607 026 43380 6 67.00 mm[Hg] - Sitting 123.00 mm[Hg] - Sitting 66.00/ min 41332 026 70621 3 187.00 mg/dL 48453 026 49946 5 187.00 mg/dL 00125 026 89885 0 167.00 mg/dL 13898 026 96222 8 167.00 mg/dL 66917 026 60033 6 387.00 mg/dL 47772 027 64673 7 53.00 mm[Hg] - Sitting 132.00 mm[Hg] - Sitting 98.60 Tympanic 97.00 % 64.00/ min 18.00/min 66528 027 97796 9 189.00 mg/dL 28141 027 88418 4 67.00 mm[Hg] - Sitting 118.00 mm[Hg] - Sitting 66.00/ min 97654 027 99092 2 189.00 mg/dL 35609 027 31260 7 189.00 mg/dL 74195 027 90218 1 105.00 mg/dL 61800 027 96788 8 105.00 mg/dL 08854 027 81498 4 223.00 mg/dL 33455 027 11972 9 223.00 mg/dL 05658 027 26249 9 164.00 mg/dL 52397 028 46348 0 68.00 mm[Hg] - Sitting 115.00 mm[Hg] - Sitting 98.60 Forehead Scan 96.00 % 71.00/ min 16.00/min 58749 028 98963 1 200.00 mg/dL 56241 028 40988 9 200.00 mg/dL 95201 028 22257 1 69.00 mm[Hg] - Sitting 122.00 mm[Hg] - Sitting 67.00/ min 45814 028 42551 3 200.00 mg/dL 61187 028 78358 0 117.00 mg/dL 74713 028 79122 0 117.00 mg/dL 87409 028 56337 1 114.00 mg/dL 15453 028 93461 7 114.00 mg/dL 82024 028 38979 0 179.00 mg/dL 96703 028 71673 8 179.00 mg/dL 85335 029 98784 4 44.00 mm[Hg] - Sitting 121.00 mm[Hg] - Sitting 98.30 Tympanic 97.00 % 65.00/ min 18.00/min 90792 029 24295 9 147.00 mg/dL 53578 029 87326 0 147.00 mg/dL 89920 029 61514 4 147.00 mg/dL 39383 029 53026 1 63.00 mm[Hg] - Sitting 118.00 mm[Hg] - Sitting 74.00/ min 02592 029 00376 2 278.00 mg/dL 24064 029 64797 3 278.00 mg/dL 85049 029 14182 1 241.00 mg/dL 21220 029 07211 8 30823 029 13890 1 504.00 mg/dL Immunizations Vaccine Date Status COVID-19 09/20/2023 Completed Influenza 09/14/2024 Completed Other 10/08/2023 Completed Shingles 05/27/2011 Completed Tetanus 04/13/2022 Completed TDaP 04/13/2022 Completed Shingles 2 10/05/2018 Completed
--- OUTSIDE RECORDS SUMMARY | 2024-10-03 10:55 | External Medical Summary | Continuity Of Care Document ---
Author Name Unknown Address [address] [address] Organization [facility] () Care Team Providers Care Cable Driller Name Role Phone DO Machado Amy Primary Care Provider [phone] Allergies Allergy Reaction Start Date End Date [...] 3 0.1 mL 08/29 Inactiv e 2023 03829 75282 0 1 time Intrad ermal False Tubersol 5 tub. unit/0.1 mL intradermal injection solution [Tuberculin PPD] 0.1mL Intradermal 1 time For PPD 2nd Step Give 2nd Step PPD Day 1 and Read results Day 3 (schedule 7 days after 1st READ) 0.1mL 09/08 Inactiv e 2023 02330 71927 0 1 time Intrad ermal False [facility] - Nurse initials indicate verificatio n that [id number] vaccine was administere d by [facility] [...] order For Diabetes 08/25 Inactiv e 2023 96625 44142 9 4 times a day Subcut aneous False Aspirin 325 mg tablet [generic] 325 By Mouth Twice daily For Anticoagulati on 325 09/25 Active 2023 71397 45140 1 Twice daily By Mouth False Ferrous sulfate 325 mg (65 mg iron) tablet [generic] 325 By Mouth Once daily For anemia 325 2023 Active 2023 41050 86449 5 Once daily By Mouth False Linezolid 600 mg tablet [generic] 600 mg By Mouth Every 12 hours For MRSA INFECTION L BKA 600 mg 08/25 Inactiv e 2023 10843 51326 1 Every 12 hours By Mouth False Cefpodoxime 200 mg tablet [generic] 400 mg By Mouth Twice daily For MRSA INFECTION L BKA 400 mg 08/25 Inactiv e 2023 24666 23706 0 Twice daily By Mouth False Coenzyme Q10 100 mg tablet [generic] 100 mg By Mouth Once daily For SUPP 100 mg 2023 Active 2023 38572 29944 0 Once daily By Mouth False Levothyroxi ne 50 mcg tablet [generic] 50mcg By Mouth Once daily For hypothyroidis m 50mcg 2023 Active 2023 24353 60909 0 Once daily By Mouth False One A Day Men Complete 240 mcg-25 mcg-300 mcg tablet 1 tab By Mouth Once daily For supplement 1 tab 2023 Active 2023 92771 73788 1 Once daily By Mouth False Cholecalcif adalberto (vitamin D3) 50 mcg (2,000 unit) tablet [generic] 1 TAB By Mouth Once daily For SUPP 1 TAB 2023 Active 2023 27352 84598 1 Once daily By Mouth False Cetirizine 10 mg tablet [generic] 1 TAB By Mouth At bedtime For Allergies 1 TAB 2023 Active 2023 07132 01006 0 At bedtime By Mouth False Timolol maleate 0.25 % eye drops [generic] 1 drop Both Eyes Twice daily For glaucoma 1 drop 2023 Active 2023 86606 39868 5 Twice daily Both Eyes False Alendronate 35 mg tablet [generic] 35mg By Mouth Every week For SIADH 35mg 08/31 Inactiv e 2023 29904 12079 5 Every week By Mouth False Lantus Solostar U-100 Insulin 100 unit/mL (3 mL) subcutaneou s pen 18 units Subcutaneous Every morning For DIABETES 18 units 08/25 Inactiv e 2023 52300 95588 0 Every morning Subcut aneous False Lantus Solostar U-100 Insulin 100 unit/mL (3 mL) subcutaneou s pen 18 units Subcutaneous Every morning For DIABETES 18 units 2023 Active 2023 38501 86809 0 Every morning Subcut aneous False Linezolid 600 mg tablet [generic] 600 mg By Mouth Every 12 hours For MRSA INFECTION L BKA 600 mg 08/28 Inactiv e 2023 43063 87611 1 Every 12 hours By Mouth False [...] order For Diabetes 08/31 Inactiv e 2023 85561 23352 9 4 times a day Subcut aneous False Cefpodoxime 200 mg tablet [generic] 400 mg By Mouth Twice daily For MRSA INFECTION L BKA 400 mg 08/28 Inactiv e 2023 28271 23190 0 Twice daily By Mouth False Brimonidine 0.1 % eye drops [generic] 1 drop Both Eyes Twice daily For glaucoma 1 drop 2023 Active 2023 35671 04469 0 Twice daily Both Eyes False Metoprolol succinate ER 50 mg tablet,exte nded release 24 hr [generic] 50 mg By Mouth Once daily HOLD FOR SBP <100, or pulse <60 For HTN 50 mg 2023 Active 2023 93276 30186 1 Once daily By Mouth False Amlodipine 2.5 mg tablet [generic] 2.5 mg By Mouth Once daily For HTN 2.5 mg 2023 Active 2023 01936 00622 5 Once daily By Mouth False Docusate sodium 100 mg capsule [generic] 100mg By Mouth Twice daily as needed For constipation HOLD FOR LOOSE STOOLS 100mg 2023 Active 2023 73343 43051 1 Twice daily as needed By Mouth False Atorvastati n 40 mg tablet [generic] 40mg By Mouth Once daily For HDL 40mg 08/26 Inactiv e 2023 66754 16096 5 Once daily By Mouth False Tylenol 325 mg tablet 2 tabs By Mouth Every 4 hours as needed For Pain DO NOT EXCEED 3000 MG APAP/24 Hours 2 tabs 2023 Active 2023 85316 69547 0 Every 4 hours as needed By Mouth False Tylenol 325 mg tablet 2 tabs By Mouth Every 4 hours as needed For Fever >100 DO NOT EXCEED 3000 MG APAP/24 Hours 2 tabs 2023 Active 2023 74403 11143 0 Every 4 hours as needed By Mouth False Dulcolax (bisacodyl) 10 mg rectal suppository One Suppository per rectum PRN if Milk of Magnisia ineffective. Give on day 5 of no BM 1 sup 2023 Active 2023 32087 49138 1 Daily as needed Rectal False Fleet Enema 19 gram-7 gram/118 mL Administer per rectum PRN one time if dulcolax suppository not effective. Give on day 6 of no BM 1 2023 Active 2023 20811 88405 6 Daily as needed Rectal False Dextrose 50 % in water (D50W) intravenous solution [generic] Dextrose 50% evonne 20-50 ml (slow push) Intravenous if Glucagon not effective after 15 minutes. CALL 911 for ED Evaluation. 50% evonne 2023 Active 2023 37777 39131 9 Intrav enous False Glucagon (HCl) Emergency Kit 1 mg solution for injection Administer Glucagon 1 mg Intramuscular if 15 minutes after GLucose Gel is administered Glucose remains less than 70 1 mg 2023 Active 2023 12816 96236 2 Intram uscula r False Glucose Gel 40 % oral gel [Dextrose] PRN If resident is unable to swallow (with or without symptoms) and Glucose results less than 70 give GLucose 40% Gel 1 tube orally - Recheck Glucose 15 minutes after administratio n. 1 tube 2023 Active 2023 57861 21683 8 By Mouth False Milk of Magnesia 400 mg/5 mL oral suspension [Magnesium hydroxide] PRN 30ml By Mouth Daily as needed for constipation one time daily if no BM, on day 4 of no BM (PRN refer to instructions) For Constipation 30 mL 2023 Active 2023 65004 86037 6 Daily as needed By Mouth False Atorvastati n 40 mg tablet [generic] 08/26 Inactiv e 2023 41239 88440 5 Atorvastati n 40 mg tablet [generic] 40mg By Mouth Once daily For HDL 40mg 2023 Active 2023 46858 92586 5 Once daily By Mouth False Insulin aspart (U-100) 100 unit/mL (3 mL) subcutaneou s pen [generic] 15 units Subcutaneous 1 time For dm 15 units 08/26 Inactiv e 2023 08305 65618 5 1 time Subcut aneous False Humalog CurtisPen (U-100) Insulin 100 unit/mL subcutaneou s 15 units Subcutaneous 1 time For dm 15 units 08/27 Inactiv e 2023 87854 94674 9 1 time Subcut aneous False Linezolid 600 mg tablet [generic] 600 mg By Mouth Every 12 hours For MRSA INFECTION L BKA 600 mg 09/06 Inactiv e 2023 58865 06915 1 Every 12 hours By Mouth False Cefpodoxime 200 mg tablet [generic] 400 mg By Mouth Twice daily For MRSA INFECTION L BKA 400 mg 08/31 Inactiv e 2023 40624 63652 0 Twice daily By Mouth False Senna 8.6 mg tablet 8.6 mg By Mouth Once daily For Constipation 8.6 mg 09/07 Inactiv e 2023 31185 20046 1 Once daily By Mouth False Problems Code Description Start Date End Date Status D64.9 Anemia, unspecified 08/25/2024 Activ e I25.10 Atherosclerotic hear t disease of [place] coronary artery without angina pectoris 08/25/2024 Active [...] weight Temperature SpO2 Blood Sugar Pulse Respirations 26297 8 67.00 mm[Hg] - Sitting 145.00 mm[Hg] - Sitting 98.50 Forehead Scan 96.00 % 81.00/ min 16.00/min 51800 004 44716 2 67.00 mm[Hg] - Sitting 145.00 mm[Hg] - Sitting 98.50 Tympanic 81.00/ min 16.00/min 31598 004 82873 5 56.00 mm[Hg] - Sitting 142.00 mm[Hg] - Sitting 136.40 NI 100.20 Tympanic 96.00 % 92.00/ min 18.00/min 18872 004 24293 6 05209 004 35239 4 143.00 mg/dL 59090 0 97.80 Tympanic 005 89288 7 60.00 mm[Hg] - Sitting 140.00 mm[Hg] - Sitting 98.00 Tympanic 84.00/ min 18.00/min 23849 005 57700 0 63.00 mm[Hg] - Sitting 141.00 mm[Hg] - Sitting 98.20 Tympanic 92.00 % 63.00/ min 16.00/min 98284 005 50803 8 69.00 mm[Hg] - Sitting 106.00 mm[Hg] - Sitting 97.20 Tympanic 11212 005 84439 7 69.00/ min 16.00/min 54533 005 44536 3 69.00 mm[Hg] - Sitting 106.00 mm[Hg] - Sitting 98.20 Tympanic 69.00/ min 16.00/min 44132 005 94520 1 367.00 mg/dL 73756 005 38440 2 97.20 Tympanic 89745 005 95101 4 97.20 Tympanic 35851 005 19758 0 69.00 mm[Hg] - Sitting 106.00 mm[Hg] - Sitting 69.00/ min 38501 005 78100 3 452.00 mg/dL 43454 005 15861 3 452.00 mg/dL 72078 005 36215 5 352.00 mg/dL 69113 005 43470 3 352.00 mg/dL 42216 005 33819 7 98.20 Tympanic 77550 005 35322 3 101.00 mg/dL 49531 005 53116 8 101.00 mg/dL 63535 006 35297 4 66.00 mm[Hg] - Sitting 107.00 mm[Hg] - Sitting 98.00 Tympanic 66.00/ min 18.00/min 03150 006 10179 0 62.00 mm[Hg] - Sitting 162.00 mm[Hg] - Sitting 98.20 Tympanic 96.00 % 60.00/ min 16.00/min 04042 006 00960 4 62.00 mm[Hg] - Sitting 162.00 mm[Hg] - Sitting 98.00 Tympanic 70.00/ min 18.00/min 36557 006 57636 8 62.00 mm[Hg] - Sitting 162.00 mm[Hg] - Sitting 98.20 Tympanic 70.00/ min 18.00/min 78763 006 14196 2 66.00 mm[Hg] - Sitting 132.00 mm[Hg] - Sitting 98.60 Tympanic 74.00/ min 16.00/min 83495 006 06620 5 159.00 mg/dL 80019 006 13611 1 159.00 mg/dL 03403 006 91561 8 98.00 Tympanic 47500 006 57682 2 62.00 mm[Hg] - Sitting 162.00 mm[Hg] - Sitting 70.00/ min 55115 006 72270 7 264.00 mg/dL 04377 006 96133 7 264.00 mg/dL 29499 006 36814 4 196.00 mg/dL 70743 006 75402 3 98.20 Tympanic 25021 006 55143 6 271.00 mg/dL 78399 007 14664 3 97.20 Tympanic 38211 007 35173 2 63.00 mm[Hg] - Sitting 132.00 mm[Hg] - Sitting 98.50 Tympanic 94.00 % 66.00/ min 16.00/min 80373 007 68013 5 188.00 mg/dL 61429 007 89123 2 188.00 mg/dL 86539 007 08084 2 188.00 mg/dL 74826 007 36158 7 97.20 Tympanic 77595 007 71989 6 97.20 Tympanic 49378 007 08693 5 67.00 mm[Hg] - Sitting 152.00 mm[Hg] - Sitting 68.00/ min 73718 007 42097 0 141.00 mg/dL 27354 007 64745 3 141.00 mg/dL 65913 007 31439 1 366.00 mg/dL 07462 007 73833 7 366.00 mg/dL 72759 007 77637 7 98.00 Tympanic 93157 007 37243 6 324.00 mg/dL 98730 007 32624 3 98.00 Tympanic 48444 007 73117 7 324.00 mg/dL 87998 008 55270 0 98.00 Tympanic 59820 008 52478 2 97.90 Tympanic 44695 008 10367 0 98.20 Tympanic 45305 008 55099 0 73.00 mm[Hg] - Sitting 156.00 mm[Hg] - Sitting 98.60 Tympanic 99.00 % 66.00/ min 20.00/min 38933 008 50672 5 137.00 mg/dL 53155 008 52659 7 137.00 mg/dL 59833 008 13076 2 97.90 Tympanic 66416 008 36528 1 137.00 mg/dL 00154 008 31754 8 97.90 Tympanic 44891 008 29043 5 67.00 mm[Hg] - Sitting 124.00 /min 42553 008 71827 6 212.00 mg/dL 43469 008 94134 6 212.00 mg/dL 21619 008 15405 9 317.00 mg/dL 15739 008 14148 4 317.00 mg/dL 97074 008 68035 8 252.00 mg/dL 39791 008 28323 0 98.70 Tympanic 91676 008 38636 7 252.00 mg/dL 00288 008 56428 3 98.70 Tympanic 65733 009 42037 9 98.70 Tympanic 91945 009 59002 3 98.20 Tympanic 17885 009 38392 5 98.40 Tympanic 16434 009 01502 5 57.00 mm[Hg] - Sitting 129.00 mm[Hg] - Sitting 98.30 Tympanic 97.00 % 65.00/ min 18.00/min 28415 009 26064 1 255.00 mg/dL 14102 009 10154 4 255.00 mg/dL 28474 009 32282 5 98.20 Tympanic 72042 009 89527 0 255.00 mg/dL 36018 009 42084 0 98.20 Tympanic 43123 009 91710 4 63.00 mm[Hg] - Lying Down 102.00 mm[Hg] - Lying Down 58.00/ min 59204 009 07520 0 167.00 mg/dL 58846 009 52494 1 167.00 mg/dL 57663 009 05110 2 164.00 mg/dL 97122 009 06521 1 164.00 mg/dL 67387 009 64904 5 208.00 mg/dL 22641 010 38597 3 98.40 Tympanic 17118 010 84239 5 98.40 Tympanic 25625 010 36347 7 66 NI 92524 010 36713 4 60.00 mm[Hg] - Sitting 143.00 mm[Hg] - Sitting 98.90 Tympanic 98.00 % 67.00/ min 18.00/min 66714 010 06735 2 214.00 mg/dL 50038 010 52387 0 214.00 mg/dL 84860 010 27842 7 214.00 mg/dL 46262 010 75992 6 64.00 mm[Hg] - Sitting 110.00 mm[Hg] - Sitting 72.00/ min 51402 010 79980 7 98.40 Tympanic 52679 010 40665 1 212.00 mg/dL 79337 010 98764 2 212.00 mg/dL 13604 010 28939 1 115.00 mg/dL 21724 010 23674 0 115.00 mg/dL 36442 010 81683 4 98.50 Tympanic 53747 010 49502 4 150.00 mg/dL 25257 010 99886 0 150.00 mg/dL 69203 011 59591 9 98.60 Tympanic 12942 011 71366 1 67.00 mm[Hg] - Sitting 144.00 mm[Hg] - Sitting 98.20 Tympanic 98.00 % 61.00/ min 18.00/min 81042 011 34337 7 290.00 mg/dL 60434 011 99688 2 290.00 mg/dL 64094 011 01246 2 290.00 mg/dL 46635 011 71820 7 54.00 mm[Hg] - Sitting 136.00 mm[Hg] - Sitting 101.00 /min 67254 011 40628 7 98.60 Tympanic 62745 011 64699 5 240.00 mg/dL 24611 011 09489 1 240.00 mg/dL 26895 011 04666 1 156.00 mg/dL 37644 011 55116 9 156.00 mg/dL 40780 011 09935 0 97.80 Tympanic 80463 011 31312 8 343.00 mg/dL 72704 012 87175 9 97.90 Tympanic 89454 012 96087 2 466.00 mg/dL 93565 012 93982 1 466.00 mg/dL 34800 012 71451 3 466.00 mg/dL 53521 012 76351 8 97.90 Tympanic 08316 012 20727 8 56.00 mm[Hg] - Sitting 96.00 mm[Hg] - Sitting 61.00/ min 30213 012 11842 7 350.00 mg/dL 19458 012 61428 5 350.00 mg/dL 54237 012 16316 6 111.00 mg/dL 08182 012 11546 0 111.00 mg/dL 07773 012 84003 5 98.40 Tympanic 87433 012 80176 6 114.00 mg/dL 31557 013 93599 4 74.00 mm[Hg] - Sitting 112.00 mm[Hg] - Sitting 98.40 Tympanic 70.00/ min 18.00/min 32885 013 81065 8 244.00 mg/dL 80390 013 66430 7 244.00 mg/dL 37048 013 31547 1 244.00 mg/dL 66362 013 32754 1 98.20 Tympanic 28139 013 70626 7 72.00 mm[Hg] - Sitting 119.00 mm[Hg] - Sitting 76.00/ min 08967 013 09015 7 253.00 mg/dL 79266 013 48996 4 253.00 mg/dL 22911 013 66299 9 156.00 mg/dL 16424 013 83512 5 156.00 mg/dL 79226 013 13659 4 97.90 Tympanic 73141 013 58903 5 189.00 mg/dL 53178 014 02880 9 98.10 Tympanic 63692 014 37931 0 61.00 mm[Hg] - Sitting 139.00 mm[Hg] - Sitting 98.20 Forehead Scan 99.00 % 66.00/ min 18.00/min 62417 014 56379 3 169.00 mg/dL 76376 014 20072 3 98.10 Tympanic 02394 014 68308 3 75.00 mm[Hg] - Sitting 121.00 mm[Hg] - Sitting 71.00/ min 87533 014 66120 9 221.00 mg/dL 49111 014 53686 9 62.00 mg/dL 27992 014 32159 5 62.00 mg/dL 27427 014 39916 8 156.00 mg/dL 87618 014 90361 6 98.10 Tympanic 30130 014 67407 7 156.00 mg/dL 97105 015 06650 4 01472 015 05020 7 62.00 mm[Hg] - Sitting 142.00 mm[Hg] - Sitting 98.20 Tympanic 99.00 % 67.00/ min 18.00/min 48107 015 02193 9 120.00 mg/dL 67636 015 49523 7 98.00 Tympanic 23108 015 97345 2 82.00 mm[Hg] - Sitting 119.00 /min 64533 015 30310 9 110.00 mg/dL 28728 015 59442 6 104.00 mg/dL 51443 015 11286 0 100.00 mg/dL 72694 015 76538 2 98.10 Tympanic 03935 015 25536 6 100.00 mg/dL 91829 016 58420 2 67.00 mm[Hg] - Sitting 147.00 mm[Hg] - Sitting 99.00 Tympanic 99.00 % 78.00/ min 20.00/min 53349 016 30084 5 158.00 mg/dL 22868 016 57718 1 158.00 mg/dL 59887 016 70881 2 158.00 mg/dL 46054 016 13711 0 66.00 mm[Hg] - Sitting 121.00 mm[Hg] - Sitting 74.00/ min 54292 016 58308 1 97.00 mg/dL 36606 016 90986 5 97.00 mg/dL 09726 016 36095 4 78.00 mg/dL 72892 016 33941 6 78.00 mg/dL 08502 016 18287 5 248.00 mg/dL 99043 016 12848 8 248.00 mg/dL 59227 017 18616 3 54.00 mm[Hg] - Sitting 142.00 mm[Hg] - Sitting 98.30 Tympanic 99.00 % 76.00/ min 18.00/min 33441 017 57067 4 267.00 mg/dL 11829 017 98834 6 73.00 mm[Hg] - Sitting 109.00 mm[Hg] - Sitting 70.00/ min 75113 017 78120 1 184.00 mg/dL 28043 017 25436 5 184.00 mg/dL 87968 017 20480 9 248.00 mg/dL 02420 017 14702 8 299.00 mg/dL 93998 017 66402 3 299.00 mg/dL 92307 018 23120 7 50.00 mm[Hg] - Sitting 125.00 mm[Hg] - Sitting 98.30 Tympanic 98.00 % 76.00/ min 16.00/min 10688 018 06997 3 168.00 mg/dL 97920 018 75969 0 75.00 mm[Hg] - Sitting 121.00 mm[Hg] - Sitting 70.00/ min 56966 018 89262 7 264.00 mg/dL 51287 018 02408 6 132.00 mg/dL 44837 018 79213 6 154.00 mg/dL 86180 018 56214 6 154.00 mg/dL 13996 019 50089 4 63.00 mm[Hg] - Sitting 147.00 mm[Hg] - Sitting 98.50 Tympanic 99.00 % 69.00/ min 18.00/min 30782 019 98689 9 159.00 mg/dL 64242 019 86986 8 73.00 mm[Hg] - Sitting 110.00 mm[Hg] - Sitting 72.00/ min 72873 019 59324 4 191.00 mg/dL 92696 019 32016 8 70.00 mg/dL 94263 019 34597 4 70.00 mg/dL 82483 019 18695 6 198.00 mg/dL 41281 019 74361 0 198.00 mg/dL 89398 020 90578 2 59.00 mm[Hg] - Sitting 131.00 mm[Hg] - Sitting 98.90 Tympanic 99.00 % 69.00/ min 18.00/min 66292 020 50012 7 299.00 mg/dL 08516 020 54863 0 62.00 mm[Hg] - Sitting 132.00 mm[Hg] - Sitting 68.00/ min 65569 020 68793 3 299.00 mg/dL 68154 020 30447 3 299.00 mg/dL 78616 020 29597 9 220.00 mg/dL 35912 020 40584 1 220.00 mg/dL 19147 020 37269 1 270.00 mg/dL 96640 020 86608 4 270.00 mg/dL 29917 020 55837 9 143.00 mg/dL 93373 020 47689 4 143.00 mg/dL 50129 021 26784 0 59.00 mm[Hg] - Sitting 121.00 mm[Hg] - Sitting 98.40 Forehead Scan 98.00 % 70.00/ min 16.00/min 96853 021 09040 0 140.00 mg/dL 28545 021 02231 0 67.00 mm[Hg] - Sitting 130.00 mm[Hg] - Sitting 68.00/ min 38878 021 95349 8 140.00 mg/dL 65853 021 05209 6 140.00 mg/dL 56095 021 86348 8 156.00 mg/dL 80724 021 13958 1 156.00 mg/dL 97640 021 42300 5 146.00 mg/dL 67386 021 45173 4 146.00 mg/dL 91637 021 96883 5 183.00 mg/dL 43848 021 87045 2 183.00 mg/dL 59046 022 53162 3 07844 022 96711 1 43.00 mm[Hg] - Sitting 113.00 mm[Hg] - Sitting 97.80 Tympanic 97.00 % 64.00/ min 18.00/min 82889 022 49115 6 270.00 mg/dL 43140 022 55387 5 68.00 mm[Hg] - Sitting 122.00 mm[Hg] - Sitting 67.00/ min 13514 022 27895 9 270.00 mg/dL 48467 022 78283 4 270.00 mg/dL 32453 022 09290 4 207.00 mg/dL 43712 022 33864 8 207.00 mg/dL 62541 022 75342 9 217.00 mg/dL 98480 022 36113 2 217.00 mg/dL 94412 022 66595 0 192.00 mg/dL 43481 022 01953 9 192.00 mg/dL 88836 023 85883 8 48.00 mm[Hg] - Sitting 116.00 mm[Hg] - Sitting 98.50 Tympanic 97.00 % 63.00/ min 18.00/min 22020 023 23618 9 68.00 mm[Hg] - Sitting 131.00 mm[Hg] - Sitting 68.00/ min 00377 023 28189 8 235.00 mg/dL 69134 023 56547 4 235.00 mg/dL 39875 023 15244 0 235.00 mg/dL 38723 023 67322 0 199.00 mg/dL 86854 023 95289 7 199.00 mg/dL 37053 023 78556 4 233.00 mg/dL 61627 023 35409 3 233.00 mg/dL 54000 023 65127 6 229.00 mg/dL 57250 023 94143 4 229.00 mg/dL 08058 024 52427 3 58.00 mm[Hg] - Sitting 102.00 mm[Hg] - Sitting 58.00/ min 95527 024 98595 9 156.00 mg/dL 79510 024 12709 4 156.00 mg/dL 52583 024 71650 3 156.00 mg/dL 41065 024 47132 0 343.00 mg/dL 83896 024 28607 6 343.00 mg/dL 97386 024 80423 2 167.00 mg/dL 39309 024 21368 0 167.00 mg/dL 79716 024 82282 8 155.00 mg/dL 23606 024 57502 7 155.00 mg/dL 23722 025 10882 0 51.00 mm[Hg] - Lying Down 109.00 mm[Hg] - Lying Down 98.60 Tympanic 95.00 % 67.00/ min 20.00/min 32178 025 67659 0 60.00 mm[Hg] - Sitting 118.00 mm[Hg] - Sitting 98.30 Forehead Scan 98.00 % 68.00/ min 16.00/min 17871 025 71570 3 235.00 mg/dL 61401 025 78854 1 63.00 mm[Hg] - Sitting 110.00 mm[Hg] - Sitting 75.00/ min 93405 025 61732 9 295.00 mg/dL 21759 025 91423 4 94.00 mg/dL 65553 025 41922 1 132.00 mg/dL 85232 025 20327 2 132.00 mg/dL 90373 026 35079 8 50.00 mm[Hg] - Sitting 123.00 mm[Hg] - Sitting 98.50 Tympanic 95.00 % 66.00/ min 18.00/min 35752 026 73575 0 275.00 mg/dL 88023 026 75287 7 275.00 mg/dL 44080 026 40891 1 275.00 mg/dL 09553 026 92648 6 67.00 mm[Hg] - Sitting 123.00 mm[Hg] - Sitting 66.00/ min 41569 026 67092 3 187.00 mg/dL 76667 026 35655 5 187.00 mg/dL 01303 026 52133 0 167.00 mg/dL 03641 026 02148 8 167.00 mg/dL 30407 026 61473 6 387.00 mg/dL 92799 027 99946 7 53.00 mm[Hg] - Sitting 132.00 mm[Hg] - Sitting 98.60 Tympanic 97.00 % 64.00/ min 18.00/min 23591 027 09615 9 189.00 mg/dL 97149 027 13439 4 67.00 mm[Hg] - Sitting 118.00 mm[Hg] - Sitting 66.00/ min 28820 027 64624 2 189.00 mg/dL 83008 027 85916 7 189.00 mg/dL 33314 027 35169 1 105.00 mg/dL 33987 027 96715 8 105.00 mg/dL 03116 027 44713 4 223.00 mg/dL 86454 027 30386 9 223.00 mg/dL 19278 027 60289 9 164.00 mg/dL 57524 028 53283 0 68.00 mm[Hg] - Sitting 115.00 mm[Hg] - Sitting 98.60 Forehead Scan 96.00 % 71.00/ min 16.00/min 10109 028 99044 1 200.00 mg/dL 87267 028 41010 9 200.00 mg/dL 38134 028 74733 1 69.00 mm[Hg] - Sitting 122.00 mm[Hg] - Sitting 67.00/ min 10155 028 79839 3 200.00 mg/dL 21414 028 44574 0 117.00 mg/dL 18615 028 89306 0 117.00 mg/dL 94197 028 16565 1 114.00 mg/dL 95154 028 27651 7 114.00 mg/dL 74311 028 68120 0 179.00 mg/dL 58073 028 95760 8 179.00 mg/dL 98937 029 75793 4 44.00 mm[Hg] - Sitting 121.00 mm[Hg] - Sitting 98.30 Tympanic 97.00 % 65.00/ min 18.00/min 21137 029 16287 9 147.00 mg/dL 04744 029 01535 0 147.00 mg/dL 52157 029 81284 4 147.00 mg/dL 33420 029 75936 1 63.00 mm[Hg] - Sitting 118.00 mm[Hg] - Sitting 74.00/ min 12372 029 63794 2 278.00 mg/dL 09064 029 85463 3 278.00 mg/dL 77027 029 20540 1 241.00 mg/dL 48415 029 77633 8 95297 029 59841 1 504.00 mg/dL 31527 030 73217 4 242.00 mg/dL 17652 030 16316 8 68.00 mm[Hg] - Sitting 121.00 mm[Hg] - Sitting 68.00/ min 95121 030 73745 2 242.00 mg/dL 75808 030 35159 3 170.00 mg/dL 08078 030 72042 0 170.00 mg/dL 44432 030 39426 4 200.00 mg/dL 12527 030 18091 7 200.00 mg/dL Immunizations Vaccine Date Status COVID-19 09/20/2023 Completed Influenza 09/14/2024 Completed Other 10/08/2023 Completed Shingles 05/27/2011 Completed Tetanus 04/13/2022 Completed TDaP 04/13/2022 Completed Shingles 2 10/05/2018 Completed
--- OUTSIDE RECORDS SUMMARY | 2024-10-03 10:56 | External Medical Summary | Continuity Of Care Document ---
Author Name Unknown Address [address] [address] Organization [facility] () Care Team Providers Care Technical Lead Name Role Phone DO Machado Amy Primary Care Provider [phone] Allergies Allergy Reaction Start Date End Date [...] 3 0.1 mL 08/29 Inactiv e 2023 47617 63241 0 1 time Intrad ermal False Tubersol 5 tub. unit/0.1 mL intradermal injection solution [Tuberculin PPD] 0.1mL Intradermal 1 time For PPD 2nd Step Give 2nd Step PPD Day 1 and Read results Day 3 (schedule 7 days after 1st READ) 0.1mL 09/08 Inactiv e 2023 88618 94902 0 1 time Intrad ermal False [facility] - Nurse initials indicate verificatio n that [id number] vaccine was administere d by [facility] [...] order For Diabetes 08/25 Inactiv e 2023 80926 50953 9 4 times a day Subcut aneous False Aspirin 325 mg tablet [generic] 325 By Mouth Twice daily For Anticoagulati on 325 09/25 Active 2023 05746 12815 1 Twice daily By Mouth False Ferrous sulfate 325 mg (65 mg iron) tablet [generic] 325 By Mouth Once daily For anemia 325 2023 Active 2023 84002 37852 5 Once daily By Mouth False Linezolid 600 mg tablet [generic] 600 mg By Mouth Every 12 hours For MRSA INFECTION L BKA 600 mg 08/25 Inactiv e 2023 80763 94319 1 Every 12 hours By Mouth False Cefpodoxime 200 mg tablet [generic] 400 mg By Mouth Twice daily For MRSA INFECTION L BKA 400 mg 08/25 Inactiv e 2023 67056 67898 0 Twice daily By Mouth False Coenzyme Q10 100 mg tablet [generic] 100 mg By Mouth Once daily For SUPP 100 mg 2023 Active 2023 28266 21935 0 Once daily By Mouth False Levothyroxi ne 50 mcg tablet [generic] 50mcg By Mouth Once daily For hypothyroidis m 50mcg 2023 Active 2023 41625 08950 0 Once daily By Mouth False One A Day Men Complete 240 mcg-25 mcg-300 mcg tablet 1 tab By Mouth Once daily For supplement 1 tab 2023 Active 2023 94950 30479 1 Once daily By Mouth False Cholecalcif adalberto (vitamin D3) 50 mcg (2,000 unit) tablet [generic] 1 TAB By Mouth Once daily For SUPP 1 TAB 2023 Active 2023 10165 81703 1 Once daily By Mouth False Cetirizine 10 mg tablet [generic] 1 TAB By Mouth At bedtime For Allergies 1 TAB 2023 Active 2023 77621 83249 0 At bedtime By Mouth False Timolol maleate 0.25 % eye drops [generic] 1 drop Both Eyes Twice daily For glaucoma 1 drop 2023 Active 2023 87444 48169 5 Twice daily Both Eyes False Alendronate 35 mg tablet [generic] 35mg By Mouth Every week For SIADH 35mg 08/31 Inactiv e 2023 92220 31934 5 Every week By Mouth False Lantus Solostar U-100 Insulin 100 unit/mL (3 mL) subcutaneou s pen 18 units Subcutaneous Every morning For DIABETES 18 units 08/25 Inactiv e 2023 11420 83920 0 Every morning Subcut aneous False Lantus Solostar U-100 Insulin 100 unit/mL (3 mL) subcutaneou s pen 18 units Subcutaneous Every morning For DIABETES 18 units 2023 Active 2023 75826 76331 0 Every morning Subcut aneous False Linezolid 600 mg tablet [generic] 600 mg By Mouth Every 12 hours For MRSA INFECTION L BKA 600 mg 08/28 Inactiv e 2023 27805 28824 1 Every 12 hours By Mouth False [...] order For Diabetes 08/31 Inactiv e 2023 66342 74036 9 4 times a day Subcut aneous False Cefpodoxime 200 mg tablet [generic] 400 mg By Mouth Twice daily For MRSA INFECTION L BKA 400 mg 08/28 Inactiv e 2023 36863 50736 0 Twice daily By Mouth False Brimonidine 0.1 % eye drops [generic] 1 drop Both Eyes Twice daily For glaucoma 1 drop 2023 Active 2023 15088 87848 0 Twice daily Both Eyes False Metoprolol succinate ER 50 mg tablet,exte nded release 24 hr [generic] 50 mg By Mouth Once daily HOLD FOR SBP <100, or pulse <60 For HTN 50 mg 2023 Active 2023 96207 78624 1 Once daily By Mouth False Amlodipine 2.5 mg tablet [generic] 2.5 mg By Mouth Once daily For HTN 2.5 mg 2023 Active 2023 62766 02780 5 Once daily By Mouth False Docusate sodium 100 mg capsule [generic] 100mg By Mouth Twice daily as needed For constipation HOLD FOR LOOSE STOOLS 100mg 2023 Active 2023 59135 56446 1 Twice daily as needed By Mouth False Atorvastati n 40 mg tablet [generic] 40mg By Mouth Once daily For HDL 40mg 08/26 Inactiv e 2023 66840 37382 5 Once daily By Mouth False Tylenol 325 mg tablet 2 tabs By Mouth Every 4 hours as needed For Pain DO NOT EXCEED 3000 MG APAP/24 Hours 2 tabs 2023 Active 2023 81393 69324 0 Every 4 hours as needed By Mouth False Tylenol 325 mg tablet 2 tabs By Mouth Every 4 hours as needed For Fever >100 DO NOT EXCEED 3000 MG APAP/24 Hours 2 tabs 2023 Active 2023 75457 93201 0 Every 4 hours as needed By Mouth False Dulcolax (bisacodyl) 10 mg rectal suppository One Suppository per rectum PRN if Milk of Magnisia ineffective. Give on day 5 of no BM 1 sup 2023 Active 2023 85232 61956 1 Daily as needed Rectal False Fleet Enema 19 gram-7 gram/118 mL Administer per rectum PRN one time if dulcolax suppository not effective. Give on day 6 of no BM 1 2023 Active 2023 17932 29168 6 Daily as needed Rectal False Dextrose 50 % in water (D50W) intravenous solution [generic] Dextrose 50% evonne 20-50 ml (slow push) Intravenous if Glucagon not effective after 15 minutes. CALL 911 for ED Evaluation. 50% evonne 2023 Active 2023 15251 19141 9 Intrav enous False Glucagon (HCl) Emergency Kit 1 mg solution for injection Administer Glucagon 1 mg Intramuscular if 15 minutes after GLucose Gel is administered Glucose remains less than 70 1 mg 2023 Active 2023 17861 31412 2 Intram uscula r False Glucose Gel 40 % oral gel [Dextrose] PRN If resident is unable to swallow (with or without symptoms) and Glucose results less than 70 give GLucose 40% Gel 1 tube orally - Recheck Glucose 15 minutes after administratio n. 1 tube 2023 Active 2023 13525 32764 8 By Mouth False Milk of Magnesia 400 mg/5 mL oral suspension [Magnesium hydroxide] PRN 30ml By Mouth Daily as needed for constipation one time daily if no BM, on day 4 of no BM (PRN refer to instructions) For Constipation 30 mL 2023 Active 2023 09658 51049 6 Daily as needed By Mouth False Atorvastati n 40 mg tablet [generic] 08/26 Inactiv e 2023 22361 85416 5 Atorvastati n 40 mg tablet [generic] 40mg By Mouth Once daily For HDL 40mg 2023 Active 2023 37528 26300 5 Once daily By Mouth False Insulin aspart (U-100) 100 unit/mL (3 mL) subcutaneou s pen [generic] 15 units Subcutaneous 1 time For dm 15 units 08/26 Inactiv e 2023 67416 86446 5 1 time Subcut aneous False Humalog KwikPen (U-100) Insulin 100 unit/mL subcutaneou s 15 units Subcutaneous 1 time For dm 15 units 08/27 Inactiv e 2023 78303 20371 9 1 time Subcut aneous False Linezolid 600 mg tablet [generic] 600 mg By Mouth Every 12 hours For MRSA INFECTION L BKA 600 mg 09/06 Inactiv e 2023 32432 78764 1 Every 12 hours By Mouth False Cefpodoxime 200 mg tablet [generic] 400 mg By Mouth Twice daily For MRSA INFECTION L BKA 400 mg 08/31 Inactiv e 2023 22219 28956 0 Twice daily By Mouth False Senna 8.6 mg tablet 8.6 mg By Mouth Once daily For Constipation 8.6 mg 09/07 Inactiv e 2023 39462 36262 1 Once daily By Mouth False Humalog [...] abnormalities . Per Carb 2023 Active 2023 85970 15982 9 4 times a day Subcut aneous False Alendronate 35 mg tablet [generic] 08/31 Inactiv e 2023 98784 28210 5 Alendronate 35 mg tablet [generic] 35mg By Mouth Every week For Osteoporosis 35mg 202300 /0000 Active 2023 55430 11711 5 Every week By Mouth False ProSource 10 gram-100 kcal/30 mL oral liquid 30 ml By Mouth Once daily For wound healing 30 ml 2023 Active 2023 61809 81765 2 Once daily By Mouth False Clotrimazol e 1 % topical cream [generic] 1 applicaiton Topical Twice daily For tinea, apply to groin rash after cleansing and throughouly drying. Can discontinue order 3 days after rash resolves. 1 applica stacy 09/08 Inactiv e 2023 27880 92568 0 Twice daily Topica l False MAGIC MIX 1:1:1:1 : ZINC OXIDE EXTERNAL OINTMENT 40%; HYDROCOTISO NE EXTERNAL CREAM 1%; NYSTATIN EXTERNAL CREAM 150745U/GM; SILVADENE CREAM 1% Every shift Apply topically to MASD area on coccyx/buttoc ks each shift and as needed for incontinence care For MASD on coccyx layer 2023 Active 2023 Every shift Topica l False Senna 8.6 mg tablet 8.6 mg By Mouth Once daily For Constipation 8.6 mg 09/07 Inactiv e 2023 73353 95393 1 Once daily By Mouth False Senna 8.6 mg tablet 8.6 mg By Mouth Once daily As Needed For Constipation 8.6 mg 2023 Active 2023 62953 59211 1 Once daily By Mouth False BD AutoShield Duo Pen Needle 30 gauge x 3/16in 1 pen needle Subcutaneous 4 times a day For DM 1 pen needle 2023 Active 2023 61556 77964 5 4 times a day Subcut aneous False Hydrocortis one 1 % topical ointment [generic] 1 application Topical Twice daily For tinea *mix 1:1 with clotrimazole cream and apply to clean/dry groin rash 1 applica peggy 09/19 Inactiv e 2023 84341 46494 6 Twice daily Topica l False Clotrimazol e 1 % topical cream [generic] 1 applicaiton Topical Twice daily For tinea, apply to groin rash after cleansing and throughouly drying. MIX WITH HYDROCORTISON E Can discontinue order 3 days after rash resolves. 1 applica stacy 2023 Active 2023 93675 35012 0 Twice daily Topica l False Humalog KwikPen (U-100) Insulin 100 unit/mL subcutaneou s 08/31 Inactiv e 2023 68517 48986 9 MediHoney HCS 4 1/2in X 4 1/2in bandage Cleanse area with NSS, [facility] hydrocoll[facility] dressing, non adherent dressing, kerlix secure with paper tape daily. 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 08/25/2024 Active [...] weight Temperature SpO2 Blood Sugar Pulse Respirations 26711 8 67.00 mm[Hg] - Sitting 145.00 mm[Hg] - Sitting 98.50 Forehead Scan 96.00 % 81.00/ min 16.00/min 004 66590 2 67.00 mm[Hg] - Sitting 145.00 mm[Hg] - Sitting 98.50 Tympanic 81.00/ min 16.00/min 98015 004 68947 5 56.00 mm[Hg] - Sitting 142.00 mm[Hg] - Sitting 136.40 NI 100.20 Tympanic 96.00 % 92.00/ min 18.00/min 91794 004 30027 6 26738 004 65193 4 143.00 mg/dL 38624 0 97.80 Tympanic 005 10622 7 60.00 mm[Hg] - Sitting 140.00 mm[Hg] - Sitting 98.00 Tympanic 84.00/ min 18.00/min 44402 005 66100 0 63.00 mm[Hg] - Sitting 141.00 mm[Hg] - Sitting 98.20 Tympanic 92.00 % 63.00/ min 16.00/min 48446 005 72888 8 69.00 mm[Hg] - Sitting 106.00 mm[Hg] - Sitting 97.20 Tympanic 49923 005 02902 7 69.00/ min 16.00/min 61357 005 24504 3 69.00 mm[Hg] - Sitting 106.00 mm[Hg] - Sitting 98.20 Tympanic 69.00/ min 16.00/min 91553 005 38082 1 367.00 mg/dL 39195 005 74286 2 97.20 Tympanic 15179 005 45795 4 97.20 Tympanic 88993 005 80669 0 69.00 mm[Hg] - Sitting 106.00 mm[Hg] - Sitting 69.00/ min 03586 005 04075 3 452.00 mg/dL 07512 005 27371 3 452.00 mg/dL 53566 005 10459 5 352.00 mg/dL 23973 005 22526 3 352.00 mg/dL 00501 005 34028 7 98.20 Tympanic 77339 005 3 101.00 mg/dL 27793 005 8 101.00 mg/dL 74256 006 88639 4 66.00 mm[Hg] - Sitting 107.00 mm[Hg] - Sitting 98.00 Tympanic 66.00/ min 18.00/min 17658 006 18864 0 62.00 mm[Hg] - Sitting 162.00 mm[Hg] - Sitting 98.20 Tympanic 96.00 % 60.00/ min 16.00/min 45897 006 98455 4 62.00 mm[Hg] - Sitting 162.00 mm[Hg] - Sitting 98.00 Tympanic 70.00/ min 18.00/min 41861 006 26794 8 62.00 mm[Hg] - Sitting 162.00 mm[Hg] - Sitting 98.20 Tympanic 70.00/ min 18.00/min 15823 006 82879 2 66.00 mm[Hg] - Sitting 132.00 mm[Hg] - Sitting 98.60 Tympanic 74.00/ min 16.00/min 80639 006 09405 5 159.00 mg/dL 48604 006 93751 1 159.00 mg/dL 93744 006 14511 8 98.00 Tympanic 90370 006 80763 2 62.00 mm[Hg] - Sitting 162.00 mm[Hg] - Sitting 70.00/ min 02158 006 45403 7 264.00 mg/dL 39376 006 84983 7 264.00 mg/dL 10241 006 11889 4 196.00 mg/dL 59711 006 09316 3 98.20 Tympanic 95097 006 04574 6 271.00 mg/dL 12042 007 37685 3 97.20 Tympanic 82465 007 21299 2 63.00 mm[Hg] - Sitting 132.00 mm[Hg] - Sitting 98.50 Tympanic 94.00 % 66.00/ min 16.00/min 91704 007 68310 5 188.00 mg/dL 79799 007 48737 2 188.00 mg/dL 19204 007 20788 2 188.00 mg/dL 54867 007 45994 7 97.20 Tympanic 82638 007 64753 6 97.20 Tympanic 14586 007 52779 5 67.00 mm[Hg] - Sitting 152.00 mm[Hg] - Sitting 68.00/ min 23532 007 54429 0 141.00 mg/dL 68890 007 24966 3 141.00 mg/dL 18707 007 26457 1 366.00 mg/dL 42302 007 51039 7 366.00 mg/dL 40089 007 39584 7 98.00 Tympanic 52411 007 61798 6 324.00 mg/dL 00233 007 32461 3 98.00 Tympanic 47164 007 29978 7 324.00 mg/dL 27269 008 69446 0 98.00 Tympanic 63617 008 47262 2 97.90 Tympanic 41727 008 76743 0 98.20 Tympanic 95883 008 30872 0 73.00 mm[Hg] - Sitting 156.00 mm[Hg] - Sitting 98.60 Tympanic 99.00 % 66.00/ min 20.00/min 65991 008 20528 5 137.00 mg/dL 65775 008 82086 7 137.00 mg/dL 52177 008 74637 2 97.90 Tympanic 96452 008 00441 1 137.00 mg/dL 56840 008 27814 8 97.90 Tympanic 48904 008 18468 5 67.00 mm[Hg] - Sitting 124.00 /min 32445 008 95404 6 212.00 mg/dL 17542 008 64531 6 212.00 mg/dL 36912 008 97989 9 317.00 mg/dL 26318 008 56396 4 317.00 mg/dL 03015 008 48566 8 252.00 mg/dL 04123 008 48179 0 98.70 Tympanic 05972 008 21084 7 252.00 mg/dL 73295 008 64288 3 98.70 Tympanic 39060 009 75454 9 98.70 Tympanic 43553 009 56560 3 98.20 Tympanic 80355 009 06177 5 98.40 Tympanic 72717 009 17643 5 57.00 mm[Hg] - Sitting 129.00 mm[Hg] - Sitting 98.30 Tympanic 97.00 % 65.00/ min 18.00/min 53901 009 04737 1 255.00 mg/dL 48622 009 28662 4 255.00 mg/dL 51542 009 72425 5 98.20 Tympanic 40267 009 96949 0 255.00 mg/dL 89427 009 62137 0 98.20 Tympanic 56456 009 75450 4 63.00 mm[Hg] - Lying Down 102.00 mm[Hg] - Lying Down 58.00/ min 51726 009 66030 0 167.00 mg/dL 41416 009 18980 1 167.00 mg/dL 72256 009 92163 2 164.00 mg/dL 26504 009 25923 1 164.00 mg/dL 90732 009 11340 5 208.00 mg/dL 11953 010 51345 3 98.40 Tympanic 04516 010 75875 5 98.40 Tympanic 45663 010 02075 7 66 [place] [address] 010 74806 4 60.00 mm[Hg] - Sitting 143.00 mm[Hg] - Sitting 98.90 Tympanic 98.00 % 67.00/ min 18.00/min 55118 010 26118 2 214.00 mg/dL 81660 010 98277 0 214.00 mg/dL 26220 010 51468 7 214.00 mg/dL 94121 010 07506 6 64.00 mm[Hg] - Sitting 110.00 mm[Hg] - Sitting 72.00/ min 38327 010 61158 7 98.40 Tympanic 80041 010 27067 1 212.00 mg/dL 67710 010 89012 2 212.00 mg/dL 85129 010 50838 1 115.00 mg/dL 55301 010 54618 0 115.00 mg/dL 17042 010 66964 4 98.50 Tympanic 38744 010 77632 4 150.00 mg/dL 73179 010 10979 0 150.00 mg/dL 28498 011 14357 9 98.60 Tympanic 51003 011 42267 1 67.00 mm[Hg] - Sitting 144.00 mm[Hg] - Sitting 98.20 Tympanic 98.00 % 61.00/ min 18.00/min 66698 011 82916 7 290.00 mg/dL 20180 011 57600 2 290.00 mg/dL 10396 011 13575 2 290.00 mg/dL 54211 011 36897 7 54.00 mm[Hg] - Sitting 136.00 mm[Hg] - Sitting 101.00 /min 79401 011 99710 7 98.60 Tympanic 49255 011 14054 5 240.00 mg/dL 49094 011 68963 1 240.00 mg/dL 35023 011 33112 1 156.00 mg/dL 40481 011 01707 9 156.00 mg/dL 39430 011 53966 0 97.80 Tympanic 25128 011 55048 8 343.00 mg/dL 98912 012 80532 9 97.90 Tympanic 89188 012 00762 2 466.00 mg/dL 00192 012 94353 1 466.00 mg/dL 03679 012 93093 3 466.00 mg/dL 94989 012 99913 8 97.90 Tympanic 42707 012 56746 8 56.00 mm[Hg] - Sitting 96.00 mm[Hg] - Sitting 61.00/ min 75391 012 41187 7 350.00 mg/dL 03096 012 39017 5 350.00 mg/dL 02699 012 84039 6 111.00 mg/dL 44342 012 27877 0 111.00 mg/dL 68525 012 41283 5 98.40 Tympanic 61508 012 08503 6 114.00 mg/dL 03259 013 50460 4 74.00 mm[Hg] - Sitting 112.00 mm[Hg] - Sitting 98.40 Tympanic 70.00/ min 18.00/min 46234 013 02368 8 244.00 mg/dL 31230 013 74486 7 244.00 mg/dL 97407 013 94481 1 244.00 mg/dL 94509 013 04984 1 98.20 Tympanic 83051 013 12907 7 72.00 mm[Hg] - Sitting 119.00 mm[Hg] - Sitting 76.00/ min 48505 013 32575 7 253.00 mg/dL 79953 013 23558 4 253.00 mg/dL 20211 013 66628 9 156.00 mg/dL 29518 013 74670 5 156.00 mg/dL 57002 013 73188 4 97.90 Tympanic 00374 013 22513 5 189.00 mg/dL 85599 014 12342 9 98.10 Tympanic 66776 014 37357 0 61.00 mm[Hg] - Sitting 139.00 mm[Hg] - Sitting 98.20 Forehead Scan 99.00 % 66.00/ min 18.00/min 25048 014 22488 3 169.00 mg/dL 44630 014 49077 3 98.10 Tympanic 63294 014 33926 3 75.00 mm[Hg] - Sitting 121.00 mm[Hg] - Sitting 71.00/ min 25911 014 64398 9 221.00 mg/dL 90470 014 94005 9 62.00 mg/dL 56423 014 35941 5 62.00 mg/dL 85033 014 28840 8 156.00 mg/dL 75844 014 48479 6 98.10 Tympanic 10838 014 64689 7 156.00 mg/dL 02477 015 49873 4 52887 015 28377 7 62.00 mm[Hg] - Sitting 142.00 mm[Hg] - Sitting 98.20 Tympanic 99.00 % 67.00/ min 18.00/min 13935 015 72758 9 120.00 mg/dL 22295 015 46734 7 98.00 Tympanic 10007 015 49433 2 82.00 mm[Hg] - Sitting 119.00 /min 98076 015 09190 9 110.00 mg/dL 33870 015 85285 6 104.00 mg/dL 98012 015 96136 0 100.00 mg/dL 21161 015 22313 2 98.10 Tympanic 38693 015 36888 6 100.00 mg/dL 90859 016 63427 2 67.00 mm[Hg] - Sitting 147.00 mm[Hg] - Sitting 99.00 Tympanic 99.00 % 78.00/ min 20.00/min 70546 016 31413 5 158.00 mg/dL 05365 016 15301 1 158.00 mg/dL 29889 016 48930 2 158.00 mg/dL 84291 016 21824 0 66.00 mm[Hg] - Sitting 121.00 mm[Hg] - Sitting 74.00/ min 95031 016 57447 1 97.00 mg/dL 42249 016 78877 5 97.00 mg/dL 23766 016 45212 4 78.00 mg/dL 79663 016 17770 6 78.00 mg/dL 49507 016 51043 5 248.00 mg/dL 67850 016 34269 8 248.00 mg/dL 33308 017 17368 3 54.00 mm[Hg] - Sitting 142.00 mm[Hg] - Sitting 98.30 Tympanic 99.00 % 76.00/ min 18.00/min 02554 017 98632 4 267.00 mg/dL 31822 017 11844 6 73.00 mm[Hg] - Sitting 109.00 mm[Hg] - Sitting 70.00/ min 55162 017 13140 1 184.00 mg/dL 34760 017 07544 5 184.00 mg/dL 02849 017 82321 9 248.00 mg/dL 21774 017 01655 8 299.00 mg/dL 47315 017 18213 3 299.00 mg/dL 90754 018 26749 7 50.00 mm[Hg] - Sitting 125.00 mm[Hg] - Sitting 98.30 Tympanic 98.00 % 76.00/ min 16.00/min 13276 018 78997 3 168.00 mg/dL 97005 018 98776 0 75.00 mm[Hg] - Sitting 121.00 mm[Hg] - Sitting 70.00/ min 17776 018 14408 7 264.00 mg/dL 11314 018 83677 6 132.00 mg/dL 38938 018 87498 6 154.00 mg/dL 44175 018 42594 6 154.00 mg/dL 99287 019 72294 4 63.00 mm[Hg] - Sitting 147.00 mm[Hg] - Sitting 98.50 Tympanic 99.00 % 69.00/ min 18.00/min 03954 019 26667 9 159.00 mg/dL 00567 019 54662 8 73.00 mm[Hg] - Sitting 110.00 mm[Hg] - Sitting 72.00/ min 64631 019 85817 4 191.00 mg/dL 24106 019 91325 8 70.00 mg/dL 04102 019 62513 4 70.00 mg/dL 39014 019 27142 6 198.00 mg/dL 65427 019 41090 0 198.00 mg/dL 01084 020 34056 2 59.00 mm[Hg] - Sitting 131.00 mm[Hg] - Sitting 98.90 Tympanic 99.00 % 69.00/ min 18.00/min 40192 020 07215 7 299.00 mg/dL 14611 020 36454 0 62.00 mm[Hg] - Sitting 132.00 mm[Hg] - Sitting 68.00/ min 20850 020 62750 3 299.00 mg/dL 00274 020 17062 3 299.00 mg/dL 45069 020 86716 9 220.00 mg/dL 36163 020 67076 1 220.00 mg/dL 08921 020 91832 1 270.00 mg/dL 45608 020 81207 4 270.00 mg/dL 80432 020 89408 9 143.00 mg/dL 42323 020 02699 4 143.00 mg/dL 26999 021 28001 0 59.00 mm[Hg] - Sitting 121.00 mm[Hg] - Sitting 98.40 Forehead Scan 98.00 % 70.00/ min 16.00/min 66695 021 28977 0 140.00 mg/dL 76410 021 58465 0 67.00 mm[Hg] - Sitting 130.00 mm[Hg] - Sitting 68.00/ min 47536 021 20008 8 140.00 mg/dL 09166 021 76575 6 140.00 mg/dL 15661 021 88712 8 156.00 mg/dL 03205 021 71608 1 156.00 mg/dL 21262 021 45650 5 146.00 mg/dL 40931 021 86786 4 146.00 mg/dL 88978 021 44925 5 183.00 mg/dL 43802 021 00602 2 183.00 mg/dL 37574 022 58646 3 59745 022 89013 1 43.00 mm[Hg] - Sitting 113.00 mm[Hg] - Sitting 97.80 Tympanic 97.00 % 64.00/ min 18.00/min 80685 022 92936 6 270.00 mg/dL 20062 022 53453 5 68.00 mm[Hg] - Sitting 122.00 mm[Hg] - Sitting 67.00/ min 88107 022 05341 9 270.00 mg/dL 42635 022 94252 4 270.00 mg/dL 62089 022 68428 4 207.00 mg/dL 23443 022 47862 8 207.00 mg/dL 76621 022 51721 9 217.00 mg/dL 24329 022 09189 2 217.00 mg/dL 33041 022 37383 0 192.00 mg/dL 73222 022 44914 9 192.00 mg/dL 97879 023 41624 8 48.00 mm[Hg] - Sitting 116.00 mm[Hg] - Sitting 98.50 Tympanic 97.00 % 63.00/ min 18.00/min 43149 023 96924 9 68.00 mm[Hg] - Sitting 131.00 mm[Hg] - Sitting 68.00/ min 29289 023 10390 8 235.00 mg/dL 44955 023 52232 4 235.00 mg/dL 37590 023 44004 0 235.00 mg/dL 90430 023 40319 0 199.00 mg/dL 80489 023 13318 7 199.00 mg/dL 36704 023 31092 4 233.00 mg/dL 42846 023 19402 3 233.00 mg/dL 67469 023 26837 6 229.00 mg/dL 48728 023 34745 4 229.00 mg/dL 63259 024 18093 3 58.00 mm[Hg] - Sitting 102.00 mm[Hg] - Sitting 58.00/ min 25910 024 81248 9 156.00 mg/dL 35613 024 24431 4 156.00 mg/dL 34832 024 15960 3 156.00 mg/dL 06290 024 00604 0 343.00 mg/dL 03812 024 82675 6 343.00 mg/dL 60149 024 38657 2 167.00 mg/dL 88616 024 00301 0 167.00 mg/dL 47881 024 66036 8 155.00 mg/dL 86553 024 97222 7 155.00 mg/dL 52961 025 57151 0 51.00 mm[Hg] - Lying Down 109.00 mm[Hg] - Lying Down 98.60 Tympanic 95.00 % 67.00/ min 20.00/min 05820 025 91994 0 60.00 mm[Hg] - Sitting 118.00 mm[Hg] - Sitting 98.30 Forehead Scan 98.00 % 68.00/ min 16.00/min 54920 025 95164 3 235.00 mg/dL 61182 025 49870 1 63.00 mm[Hg] - Sitting 110.00 mm[Hg] - Sitting 75.00/ min 37069 025 61516 9 295.00 mg/dL 71361 025 55233 4 94.00 mg/dL 84106 025 13786 1 132.00 mg/dL 36056 025 14698 2 132.00 mg/dL 06444 026 24259 8 50.00 mm[Hg] - Sitting 123.00 mm[Hg] - Sitting 98.50 Tympanic 95.00 % 66.00/ min 18.00/min 73973 026 35572 0 275.00 mg/dL 83383 026 25953 7 275.00 mg/dL 93975 026 48511 1 275.00 mg/dL 84202 026 34032 6 67.00 mm[Hg] - Sitting 123.00 mm[Hg] - Sitting 66.00/ min 15363 026 47593 3 187.00 mg/dL 28437 026 72504 5 187.00 mg/dL 22278 026 86045 0 167.00 mg/dL 00222 026 92145 8 167.00 mg/dL 32571 026 81652 6 387.00 mg/dL 93175 027 27892 7 53.00 mm[Hg] - Sitting 132.00 mm[Hg] - Sitting 98.60 Tympanic 97.00 % 64.00/ min 18.00/min 16253 027 56814 9 189.00 mg/dL 07055 027 63037 4 67.00 mm[Hg] - Sitting 118.00 mm[Hg] - Sitting 66.00/ min 05995 027 48833 2 189.00 mg/dL 66060 027 28246 7 189.00 mg/dL 12238 027 11942 1 105.00 mg/dL 53108 027 37124 8 105.00 mg/dL 33273 027 85051 4 223.00 mg/dL 65457 027 53842 9 223.00 mg/dL 78158 027 19362 9 164.00 mg/dL 17088 028 75832 0 68.00 mm[Hg] - Sitting 115.00 mm[Hg] - Sitting 98.60 Forehead Scan 96.00 % 71.00/ min 16.00/min 96272 028 82449 1 200.00 mg/dL 41654 028 90265 9 200.00 mg/dL 30986 028 64062 1 69.00 mm[Hg] - Sitting 122.00 mm[Hg] - Sitting 67.00/ min 60284 028 59628 3 200.00 mg/dL 42193 028 80247 0 117.00 mg/dL 95370 028 75741 0 117.00 mg/dL 10855 028 90287 1 114.00 mg/dL 94333 028 83377 7 114.00 mg/dL 64308 028 21051 0 179.00 mg/dL 87426 028 53922 8 179.00 mg/dL 029 42962 9 147.00 mg/dL 029 53918 0 147.00 mg/dL 029 34747 4 147.00 mg/dL 029 74585 1 63.00 mm[Hg] - Sitting 118.00 mm[Hg] - Sitting 74.00/ min 029 97203 2 278.00 mg/dL 029 41404 3 278.00 mg/dL Immunizations Vaccine Date Status COVID-19 09/20/2023 Completed Influenza 09/14/2024 Completed Other 10/08/2023 Completed Shingles 05/27/2011 Completed Tetanus 04/13/2022 Completed TDaP 04/13/2022 Completed Shingles 2 10/05/2018 Completed
--- OUTSIDE RECORDS SUMMARY | 2024-10-03 10:56 | External Medical Summary | Continuity Of Care Document ---
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 unit/0.1 mL intradermal injection solution [Tuberculin PPD] 0.1mL Intradermal 1 time For PPD 2nd Step Give 2nd Step PPD Day 1 and Read results Day 3 (schedule 7 days after 1st READ) 0.1mL 09/08 Inactiv e 2023 54947 30825 0 1 time Intrad ermal False [facility] - Nurse initials indicate verificatio n that [id number] vaccine was administere d by [facility] [...] order For Diabetes 08/25 Inactiv e 2023 75966 08903 9 4 times a day Subcut aneous False Aspirin 325 mg tablet [generic] 325 By Mouth Twice daily For Anticoagulati on 325 09/25 Active 2023 54638 64247 1 Twice daily By Mouth False Ferrous sulfate 325 mg (65 mg iron) tablet [generic] 325 By Mouth Once daily For anemia 325 2023 Active 2023 73414 58700 5 Once daily By Mouth False Linezolid 600 mg tablet [generic] 600 mg By Mouth Every 12 hours For MRSA INFECTION L BKA 600 mg 08/25 Inactiv e 2023 97813 16387 1 Every 12 hours By Mouth False Cefpodoxime 200 mg tablet [generic] 400 mg By Mouth Twice daily For MRSA INFECTION L BKA 400 mg 08/25 Inactiv e 2023 43608 03846 0 Twice daily By Mouth False Coenzyme Q10 100 mg tablet [generic] 100 mg By Mouth Once daily For SUPP 100 mg 2023 Active 2023 85747 55410 0 Once daily By Mouth False Levothyroxi ne 50 mcg tablet [generic] 50mcg By Mouth Once daily For hypothyroidis m 50mcg 2023 Active 2023 38437 25747 0 Once daily By Mouth False One A Day Men Complete 240 mcg-25 mcg-300 mcg tablet 1 tab By Mouth Once daily For supplement 1 tab 2023 Active 2023 80212 22171 1 Once daily By Mouth False Cholecalcif adalberto (vitamin D3) 50 mcg (2,000 unit) tablet [generic] 1 TAB By Mouth Once daily For SUPP 1 TAB 2023 Active 2023 78472 17717 1 Once daily By Mouth False Cetirizine 10 mg tablet [generic] 1 TAB By Mouth At bedtime For Allergies 1 TAB 2023 Active 2023 25287 04135 0 At bedtime By Mouth False Timolol maleate 0.25 % eye drops [generic] 1 drop Both Eyes Twice daily For glaucoma 1 drop 2023 Active 2023 48113 30463 5 Twice daily Both Eyes False Alendronate 35 mg tablet [generic] 35mg By Mouth Every week For SIADH 35mg 08/31 Inactiv e 2023 93574 32475 5 Every week By Mouth False Lantus Solostar U-100 Insulin 100 unit/mL (3 mL) subcutaneou s pen 18 units Subcutaneous Every morning For DIABETES 18 units 08/25 Inactiv e 2023 73611 79631 0 Every morning Subcut aneous False Lantus Solostar U-100 Insulin 100 unit/mL (3 mL) subcutaneou s pen 18 units Subcutaneous Every morning For DIABETES 18 units 2023 Active 2023 66356 68999 0 Every morning Subcut aneous False Linezolid 600 mg tablet [generic] 600 mg By Mouth Every 12 hours For MRSA INFECTION L BKA 600 mg 08/28 Inactiv e 2023 83604 10947 1 Every 12 hours By Mouth False [...] order For Diabetes 08/31 Inactiv e 2023 67511 11897 9 4 times a day Subcut aneous False Cefpodoxime 200 mg tablet [generic] 400 mg By Mouth Twice daily For MRSA INFECTION L BKA 400 mg 08/28 Inactiv e 2023 53660 63760 0 Twice daily By Mouth False Brimonidine 0.1 % eye drops [generic] 1 drop Both Eyes Twice daily For glaucoma 1 drop 2023 Active 2023 35650 37448 0 Twice daily Both Eyes False Metoprolol succinate ER 50 mg tablet,exte nded release 24 hr [generic] 50 mg By Mouth Once daily HOLD FOR SBP <100, or pulse <60 For HTN 50 mg 2023 Active 2023 62177 97323 1 Once daily By Mouth False Amlodipine 2.5 mg tablet [generic] 2.5 mg By Mouth Once daily For HTN 2.5 mg 2023 Active 2023 45456 49704 5 Once daily By Mouth False Docusate sodium 100 mg capsule [generic] 100mg By Mouth Twice daily as needed For constipation HOLD FOR LOOSE STOOLS 100mg 2023 Active 2023 25129 19619 1 Twice daily as needed By Mouth False Atorvastati n 40 mg tablet [generic] 40mg By Mouth Once daily For HDL 40mg 08/26 Inactiv e 2023 61385 56305 5 Once daily By Mouth False Tylenol 325 mg tablet 2 tabs By Mouth Every 4 hours as needed For Pain DO NOT EXCEED 3000 MG APAP/24 Hours 2 tabs 2023 Active 2023 50225 30569 0 Every 4 hours as needed By Mouth False Tylenol 325 mg tablet 2 tabs By Mouth Every 4 hours as needed For Fever >100 DO NOT EXCEED 3000 MG APAP/24 Hours 2 tabs 2023 Active 2023 06247 48823 0 Every 4 hours as needed By Mouth False Dulcolax (bisacodyl) 10 mg rectal suppository One Suppository per rectum PRN if Milk of Magnisia ineffective. Give on day 5 of no BM 1 sup 2023 Active 2023 60112 28745 1 Daily as needed Rectal False Fleet Enema 19 gram-7 gram/118 mL Administer per rectum PRN one time if dulcolax suppository not effective. Give on day 6 of no BM 1 2023 Active 2023 34347 44723 6 Daily as needed Rectal False Dextrose 50 % in water (D50W) intravenous solution [generic] Dextrose 50% evonne 20-50 ml (slow push) Intravenous if Glucagon not effective after 15 minutes. CALL 911 for ED Evaluation. 50% evonne 2023 Active 2023 73572 48526 9 Intrav enous False Glucagon (HCl) Emergency Kit 1 mg solution for injection Administer Glucagon 1 mg Intramuscular if 15 minutes after GLucose Gel is administered Glucose remains less than 70 1 mg 2023 Active 2023 03293 05932 2 Intram uscula r False Glucose Gel 40 % oral gel [Dextrose] PRN If resident is unable to swallow (with or without symptoms) and Glucose results less than 70 give GLucose 40% Gel 1 tube orally - Recheck Glucose 15 minutes after administratio n. 1 tube 2023 Active 2023 46281 97828 8 By Mouth False Milk of Magnesia 400 mg/5 mL oral suspension [Magnesium hydroxide] PRN 30ml By Mouth Daily as needed for constipation one time daily if no BM, on day 4 of no BM (PRN refer to instructions) For Constipation 30 mL 2023 Active 2023 71036 05856 6 Daily as needed By Mouth False Atorvastati n 40 mg tablet [generic] 08/26 Inactiv e 2023 93308 95180 5 Atorvastati n 40 mg tablet [generic] 40mg By Mouth Once daily For HDL 40mg 2023 Active 2023 05514 45098 5 Once daily By Mouth False Insulin aspart (U-100) 100 unit/mL (3 mL) subcutaneou s pen [generic] 15 units Subcutaneous 1 time For dm 15 units 08/26 Inactiv e 2023 34650 06907 5 1 time Subcut aneous False Humalog KwikPen (U-100) Insulin 100 unit/mL subcutaneou s 15 units Subcutaneous 1 time For dm 15 units 08/27 Inactiv e 2023 99868 50340 9 1 time Subcut aneous False Linezolid 600 mg tablet [generic] 600 mg By Mouth Every 12 hours For MRSA INFECTION L BKA 600 mg 09/06 Inactiv e 2023 58838 38369 1 Every 12 hours By Mouth False Cefpodoxime 200 mg tablet [generic] 400 mg By Mouth Twice daily For MRSA INFECTION L BKA 400 mg 08/31 Inactiv e 2023 58006 24737 0 Twice daily By Mouth False Senna 8.6 mg tablet 8.6 mg By Mouth Once daily For Constipation 8.6 mg 09/07 Inactiv e 2023 78517 94426 1 Once daily By Mouth False Humalog [...] abnormalities . Per Carb 2023 Active 2023 87117 73609 9 4 times a day Subcut aneous False Alendronate 35 mg tablet [generic] 08/31 Inactiv e 2023 38187 08474 5 Alendronate 35 mg tablet [generic] 35mg By Mouth Every week For Osteoporosis 35mg 202300 /0000 Active 2023 18780 91033 5 Every week By Mouth False ProSource 10 gram-100 kcal/30 mL oral liquid 30 ml By Mouth Once daily For wound healing 30 ml 2023 Active 2023 94653 41511 2 Once daily By Mouth False Clotrimazol e 1 % topical cream [generic] 1 applicaiton Topical Twice daily For tinea, apply to groin rash after cleansing and throughouly drying. Can discontinue order 3 days after rash resolves. 1 applica stacy 09/08 Inactiv e 2023 73632 65176 0 Twice daily Topica l False Problems Code Description Start Date End Date Status D64.9 Anemia, unspecified 08/25/2024 Activ e I25.10 Atherosclerotic hear t disease of [place] coronary artery without angina pectoris 08/25/2024 Active [...] weight Temperature SpO2 Blood Sugar Pulse Respirations 42071 8 67.00 mm[Hg] - Sitting 145.00 mm[Hg] - Sitting 98.50 Forehead Scan 96.00 % 81.00/ min 16.00/min 70148 004 11297 2 67.00 mm[Hg] - Sitting 145.00 mm[Hg] - Sitting 98.50 Tympanic 81.00/ min 16.00/min 59979 004 80371 5 56.00 mm[Hg] - Sitting 142.00 mm[Hg] - Sitting 136.40 NI 100.20 Tympanic 96.00 % 92.00/ min 18.00/min 84695 004 81204 6 40421 004 76530 4 143.00 mg/dL 82626 004 33200 0 97.80 Tympanic 83619 005 64987 7 60.00 mm[Hg] - Sitting 140.00 mm[Hg] - Sitting 98.00 Tympanic 84.00/ min 18.00/min 21552 005 30595 0 63.00 mm[Hg] - Sitting 141.00 mm[Hg] - Sitting 98.20 Tympanic 92.00 % 63.00/ min 16.00/min 71433 005 87476 8 69.00 mm[Hg] - Sitting 106.00 mm[Hg] - Sitting 97.20 Tympanic 63686 005 13969 7 69.00/ min 16.00/min 13803 005 63737 3 69.00 mm[Hg] - Sitting 106.00 mm[Hg] - Sitting 98.20 Tympanic 69.00/ min 16.00/min 16675 005 95873 1 367.00 mg/dL 75025 005 50079 2 97.20 Tympanic 36031 005 71788 4 97.20 Tympanic 43420 005 85026 0 69.00 mm[Hg] - Sitting 106.00 mm[Hg] - Sitting 69.00/ min 52931 005 71575 3 452.00 mg/dL 69692 005 22238 3 452.00 mg/dL 22346 005 34699 5 352.00 mg/dL 65741 005 64164 3 352.00 mg/dL 92230 005 98091 7 98.20 Tympanic 66977 005 52793 3 101.00 mg/dL 94105 005 22647 8 101.00 mg/dL 39333 006 81321 4 66.00 mm[Hg] - Sitting 107.00 mm[Hg] - Sitting 98.00 Tympanic 66.00/ min 18.00/min 56918 006 30319 0 62.00 mm[Hg] - Sitting 162.00 mm[Hg] - Sitting 98.20 Tympanic 96.00 % 60.00/ min 16.00/min 75849 006 85988 4 62.00 mm[Hg] - Sitting 162.00 mm[Hg] - Sitting 98.00 Tympanic 70.00/ min 18.00/min 59641 006 32871 8 62.00 mm[Hg] - Sitting 162.00 mm[Hg] - Sitting 98.20 Tympanic 70.00/ min 18.00/min 96183 006 60151 2 66.00 mm[Hg] - Sitting 132.00 mm[Hg] - Sitting 98.60 Tympanic 74.00/ min 16.00/min 03487 006 83434 5 159.00 mg/dL 34068 006 89115 1 159.00 mg/dL 93263 006 46973 8 98.00 Tympanic 61951 006 85985 2 62.00 mm[Hg] - Sitting 162.00 mm[Hg] - Sitting 70.00/ min 00738 006 81124 7 264.00 mg/dL 47972 006 93179 7 264.00 mg/dL 65765 006 58316 4 196.00 mg/dL 52592 006 57217 3 98.20 Tympanic 70245 006 20756 6 271.00 mg/dL 24706 007 05578 3 97.20 Tympanic 24436 007 43271 2 63.00 mm[Hg] - Sitting 132.00 mm[Hg] - Sitting 98.50 Tympanic 94.00 % 66.00/ min 16.00/min 91916 007 14964 5 188.00 mg/dL 82540 007 34514 2 188.00 mg/dL 46461 007 40372 2 188.00 mg/dL 66430 007 77607 7 97.20 Tympanic 75916 007 85021 6 97.20 Tympanic 38228 007 85887 5 67.00 mm[Hg] - Sitting 152.00 mm[Hg] - Sitting 68.00/ min 10945 007 52407 0 141.00 mg/dL 98713 007 25119 3 141.00 mg/dL 47400 007 45202 1 366.00 mg/dL 28929 007 83807 7 366.00 mg/dL 80183 007 48376 7 98.00 Tympanic 42394 007 46133 6 324.00 mg/dL 83540 007 70559 3 98.00 Tympanic 84970 007 58439 7 324.00 mg/dL 49539 008 73975 0 98.00 Tympanic 44683 008 10124 2 97.90 Tympanic 71936 008 29040 0 98.20 Tympanic 66950 008 52163 0 73.00 mm[Hg] - Sitting 156.00 mm[Hg] - Sitting 98.60 Tympanic 99.00 % 66.00/ min 20.00/min 25330 008 23888 5 137.00 mg/dL 40972 008 23635 7 137.00 mg/dL 82132 008 72218 2 97.90 Tympanic 59186 008 78890 1 137.00 mg/dL 29972 008 25903 8 97.90 Tympanic 23736 008 59817 5 67.00 mm[Hg] - Sitting 124.00 /min 30992 008 27806 6 212.00 mg/dL 05334 008 22180 6 212.00 mg/dL 42689 008 51454 9 317.00 mg/dL 60863 008 80977 4 317.00 mg/dL 22258 008 42933 8 252.00 mg/dL 54285 008 09158 0 98.70 Tympanic 67334 008 65447 7 252.00 mg/dL 04309 008 11435 3 98.70 Tympanic 88217 009 25110 9 98.70 Tympanic 51727 009 43763 3 98.20 Tympanic 41036 009 37582 5 98.40 Tympanic 04497 009 44687 5 57.00 mm[Hg] - Sitting 129.00 mm[Hg] - Sitting 98.30 Tympanic 97.00 % 65.00/ min 18.00/min 76737 009 25755 1 255.00 mg/dL 71311 009 84674 4 255.00 mg/dL 64073 009 46964 5 98.20 Tympanic 76286 009 49496 0 255.00 mg/dL 54725 009 11469 0 98.20 Tympanic 24061 009 10504 4 63.00 mm[Hg] - Lying Down 102.00 mm[Hg] - Lying Down 58.00/ min 44945 009 59186 0 167.00 mg/dL 81774 009 43236 1 167.00 mg/dL 09277 009 85650 2 164.00 mg/dL 71430 009 48063 1 164.00 mg/dL 58796 009 22971 5 208.00 mg/dL 64038 010 22400 3 98.40 Tympanic 60747 010 27400 5 98.40 Tympanic 21492 010 17542 7 66 [place] [address] 010 66879 4 60.00 mm[Hg] - Sitting 143.00 mm[Hg] - Sitting 98.90 Tympanic 98.00 % 67.00/ min 18.00/min 16622 010 51675 2 214.00 mg/dL 88739 010 96605 0 214.00 mg/dL 94724 010 50310 7 214.00 mg/dL 21116 010 84953 6 64.00 mm[Hg] - Sitting 110.00 mm[Hg] - Sitting 72.00/ min 59973 010 19029 7 98.40 Tympanic 01335 010 34314 1 212.00 mg/dL 07985 010 09535 2 212.00 mg/dL 12683 010 39273 1 115.00 mg/dL 98859 010 75914 0 115.00 mg/dL 54655 010 71906 4 98.50 Tympanic 45950 010 32096 4 150.00 mg/dL 23386 010 31261 0 150.00 mg/dL 59769 011 77119 9 98.60 Tympanic 74471 011 76249 1 67.00 mm[Hg] - Sitting 144.00 mm[Hg] - Sitting 98.20 Tympanic 98.00 % 61.00/ min 18.00/min 33116 011 85321 7 290.00 mg/dL 17252 011 58712 2 290.00 mg/dL 26327 011 81319 2 290.00 mg/dL 34648 011 91694 7 54.00 mm[Hg] - Sitting 136.00 mm[Hg] - Sitting 101.00 /min 66324 011 09396 7 98.60 Tympanic 70958 011 70405 5 240.00 mg/dL 66685 011 80092 1 240.00 mg/dL 76666 011 25453 1 156.00 mg/dL 64645 011 87390 9 156.00 mg/dL 05351 011 24774 0 97.80 Tympanic 30930 011 87398 8 343.00 mg/dL 92784 012 43824 9 97.90 Tympanic 79317 012 70301 2 466.00 mg/dL 05409 012 23823 1 466.00 mg/dL 70717 012 95579 3 466.00 mg/dL 36469 012 61545 8 97.90 Tympanic 64112 012 26885 8 56.00 mm[Hg] - Sitting 96.00 mm[Hg] - Sitting 61.00/ min 61143 012 41830 7 350.00 mg/dL 34453 012 00505 5 350.00 mg/dL 30193 012 92600 6 111.00 mg/dL 90447 012 37485 0 111.00 mg/dL 16877 012 31895 5 98.40 Tympanic 28740 012 78469 6 114.00 mg/dL 88602 013 43630 4 74.00 mm[Hg] - Sitting 112.00 mm[Hg] - Sitting 98.40 Tympanic 70.00/ min 18.00/min 24631 013 59089 8 244.00 mg/dL 56921 013 80316 7 244.00 mg/dL 26173 013 83506 1 244.00 mg/dL 96299 013 77901 1 98.20 Tympanic 98896 013 31203 7 72.00 mm[Hg] - Sitting 119.00 mm[Hg] - Sitting 76.00/ min 33683 013 03640 7 253.00 mg/dL 01075 013 32451 4 253.00 mg/dL 22389 013 97112 9 156.00 mg/dL 06025 013 80553 5 156.00 mg/dL 50825 013 93855 4 97.90 Tympanic 09915 013 43931 5 189.00 mg/dL 83902 014 59849 9 98.10 Tympanic 39398 014 75690 0 61.00 mm[Hg] - Sitting 139.00 mm[Hg] - Sitting 98.20 Forehead Scan 99.00 % 66.00/ min 18.00/min 64306 014 83019 3 169.00 mg/dL 73901 014 40587 3 98.10 Tympanic 50821 014 30293 3 75.00 mm[Hg] - Sitting 121.00 mm[Hg] - Sitting 71.00/ min 21101 014 72288 9 221.00 mg/dL 54436 014 36810 9 62.00 mg/dL 32831 014 61525 5 62.00 mg/dL 52394 014 15080 8 156.00 mg/dL 69035 014 69928 6 98.10 Tympanic 14767 014 28697 7 156.00 mg/dL 49119 015 37171 4 48867 015 71801 7 62.00 mm[Hg] - Sitting 142.00 mm[Hg] - Sitting 98.20 Tympanic 99.00 % 67.00/ min 18.00/min 38879 015 12447 9 120.00 mg/dL 35012 015 04535 7 98.00 Tympanic 47341 015 51941 2 82.00 mm[Hg] - Sitting 119.00 /min 23098 015 51190 9 110.00 mg/dL 06762 015 44787 6 104.00 mg/dL 37565 015 17341 0 100.00 mg/dL 84077 015 20698 2 98.10 Tympanic 46834 015 22448 6 100.00 mg/dL 37978 016 58461 2 67.00 mm[Hg] - Sitting 147.00 mm[Hg] - Sitting 99.00 Tympanic 99.00 % 78.00/ min 20.00/min 72394 016 42295 5 158.00 mg/dL 53999 016 43103 1 158.00 mg/dL 10527 016 74039 2 158.00 mg/dL 92810 016 13880 0 66.00 mm[Hg] - Sitting 121.00 mm[Hg] - Sitting 74.00/ min 29360 016 75293 1 97.00 mg/dL 64330 016 79212 5 97.00 mg/dL 92704 016 48950 4 78.00 mg/dL 83164 016 00552 6 78.00 mg/dL 31461 016 40005 5 248.00 mg/dL 86041 016 92945 8 248.00 mg/dL 39277 017 49233 3 54.00 mm[Hg] - Sitting 142.00 mm[Hg] - Sitting 98.30 Tympanic 99.00 % 76.00/ min 18.00/min 88717 017 88608 4 267.00 mg/dL 47090 017 28731 6 73.00 mm[Hg] - Sitting 109.00 mm[Hg] - Sitting 70.00/ min 61575 017 17847 1 184.00 mg/dL 54263 017 78750 5 184.00 mg/dL 94583 017 81624 9 248.00 mg/dL 63648 017 87372 8 299.00 mg/dL 14047 017 43806 3 299.00 mg/dL 78392 018 53707 7 50.00 mm[Hg] - Sitting 125.00 mm[Hg] - Sitting 98.30 Tympanic 98.00 % 76.00/ min 16.00/min 03306 018 17166 3 168.00 mg/dL 40382 018 85561 0 75.00 mm[Hg] - Sitting 121.00 mm[Hg] - Sitting 70.00/ min 25727 018 93768 7 264.00 mg/dL 38240 018 14528 6 132.00 mg/dL 87824 018 58184 6 154.00 mg/dL 23354 018 96881 6 154.00 mg/dL 48979 019 73543 4 63.00 mm[Hg] - Sitting 147.00 mm[Hg] - Sitting 98.50 Tympanic 99.00 % 69.00/ min 18.00/min 89802 019 64493 9 159.00 mg/dL 05139 019 73021 8 73.00 mm[Hg] - Sitting 110.00 mm[Hg] - Sitting 72.00/ min 51792 019 63409 4 191.00 mg/dL 37523 019 47978 8 70.00 mg/dL 21437 019 15234 4 70.00 mg/dL 17024 019 89407 6 198.00 mg/dL 76103 019 86523 0 198.00 mg/dL 68159 020 57152 2 59.00 mm[Hg] - Sitting 131.00 mm[Hg] - Sitting 98.90 Tympanic 99.00 % 69.00/ min 18.00/min 82688 020 70021 7 299.00 mg/dL 05080 020 25997 0 62.00 mm[Hg] - Sitting 132.00 mm[Hg] - Sitting 68.00/ min 03379 020 78330 3 299.00 mg/dL 58207 020 11701 3 299.00 mg/dL 47312 020 99924 9 220.00 mg/dL 45779 020 39702 1 220.00 mg/dL 59067 020 27799 1 270.00 mg/dL 54858 020 63426 4 270.00 mg/dL 62487 020 14206 9 143.00 mg/dL 71108 020 99479 4 143.00 mg/dL 32841 021 53054 0 59.00 mm[Hg] - Sitting 121.00 mm[Hg] - Sitting 98.40 Forehead Scan 98.00 % 70.00/ min 16.00/min 24237 021 35847 0 140.00 mg/dL 07061 021 89318 0 67.00 mm[Hg] - Sitting 130.00 mm[Hg] - Sitting 68.00/ min 09472 021 98710 8 140.00 mg/dL 67403 021 06673 6 140.00 mg/dL 07885 021 82876 8 156.00 mg/dL 82748 021 37515 1 156.00 mg/dL 55194 021 74240 5 146.00 mg/dL 14171 021 59827 4 146.00 mg/dL 30232 021 94719 5 183.00 mg/dL 65011 021 15756 2 183.00 mg/dL 18792 022 75729 3 67854 022 47422 1 43.00 mm[Hg] - Sitting 113.00 mm[Hg] - Sitting 97.80 Tympanic 97.00 % 64.00/ min 18.00/min 30990 022 15572 6 270.00 mg/dL 65185 022 65408 5 68.00 mm[Hg] - Sitting 122.00 mm[Hg] - Sitting 67.00/ min 28706 022 88092 9 270.00 mg/dL 05333 022 88021 4 270.00 mg/dL 06312 022 27486 4 207.00 mg/dL 81211 022 18726 8 207.00 mg/dL 70534 022 47976 9 217.00 mg/dL 35943 022 64994 2 217.00 mg/dL 29678 022 55104 0 192.00 mg/dL 09289 022 54703 9 192.00 mg/dL 43515 023 60804 8 48.00 mm[Hg] - Sitting 116.00 mm[Hg] - Sitting 98.50 Tympanic 97.00 % 63.00/ min 18.00/min 51921 023 68113 9 68.00 mm[Hg] - Sitting 131.00 mm[Hg] - Sitting 68.00/ min 70261 023 76595 8 235.00 mg/dL 76268 023 93491 4 235.00 mg/dL 42227 023 00566 0 235.00 mg/dL 54620 023 66136 0 199.00 mg/dL 48484 023 78014 7 199.00 mg/dL 23419 023 77291 4 233.00 mg/dL 66949 023 12849 3 233.00 mg/dL 14235 023 02956 6 229.00 mg/dL 11042 023 84666 4 229.00 mg/dL 18208 024 12247 3 58.00 mm[Hg] - Sitting 102.00 mm[Hg] - Sitting 58.00/ min 40699 024 82390 9 156.00 mg/dL 23153 024 14227 4 156.00 mg/dL 79460 024 57640 3 156.00 mg/dL 04069 024 21101 0 343.00 mg/dL 86688 024 69928 6 343.00 mg/dL 09836 024 81238 2 167.00 mg/dL 63117 024 82920 0 167.00 mg/dL 11551 024 18485 8 155.00 mg/dL 54071 024 23550 7 155.00 mg/dL 25721 025 95382 0 51.00 mm[Hg] - Lying Down 109.00 mm[Hg] - Lying Down 98.60 Tympanic 95.00 % 67.00/ min 20.00/min 36159 025 21315 0 60.00 mm[Hg] - Sitting 118.00 mm[Hg] - Sitting 98.30 Forehead Scan 98.00 % 68.00/ min 16.00/min 06113 025 97849 3 235.00 mg/dL 79060 025 18073 1 63.00 mm[Hg] - Sitting 110.00 mm[Hg] - Sitting 75.00/ min 11106 025 21257 9 295.00 mg/dL 75492 025 76402 4 94.00 mg/dL 01687 025 83598 1 132.00 mg/dL 29583 025 76232 2 132.00 mg/dL 19183 026 66476 8 50.00 mm[Hg] - Sitting 123.00 mm[Hg] - Sitting 98.50 Tympanic 95.00 % 66.00/ min 18.00/min 94503 026 19787 0 275.00 mg/dL 00070 026 23338 7 275.00 mg/dL 56344 026 46020 1 275.00 mg/dL 42379 026 99248 6 67.00 mm[Hg] - Sitting 123.00 mm[Hg] - Sitting 66.00/ min 21953 026 36114 3 187.00 mg/dL 01562 026 03042 5 187.00 mg/dL 78316 026 10908 0 167.00 mg/dL 01019 026 55915 8 167.00 mg/dL 53515 026 24112 6 387.00 mg/dL 64640 027 16053 7 53.00 mm[Hg] - Sitting 132.00 mm[Hg] - Sitting 98.60 Tympanic 97.00 % 64.00/ min 18.00/min 87121 027 33062 9 189.00 mg/dL 83663 027 28291 4 67.00 mm[Hg] - Sitting 118.00 mm[Hg] - Sitting 66.00/ min 81015 027 03259 2 189.00 mg/dL 47780 027 14803 7 189.00 mg/dL 46640 027 54039 1 105.00 mg/dL 81631 027 95864 8 105.00 mg/dL 49656 027 20269 4 223.00 mg/dL 19555 027 05681 9 223.00 mg/dL 00930 027 72889 9 164.00 mg/dL 89394 028 57599 1 200.00 mg/dL 56540 028 95398 9 200.00 mg/dL 09231 028 30878 1 69.00 mm[Hg] - Sitting 122.00 mm[Hg] - Sitting 67.00/ min 63033 028 51966 3 200.00 mg/dL 47421 028 94526 0 117.00 mg/dL 79996 028 76042 0 117.00 mg/dL 50885 028 21525 1 114.00 mg/dL 98132 028 76754 7 114.00 mg/dL 19217 028 77844 0 179.00 mg/dL 00967 028 37338 8 179.00 mg/dL Immunizations Vaccine Date Status COVID-19 09/20/2023 Completed Influenza 09/14/2024 Completed Other 10/08/2023 Completed Shingles 05/27/2011 Completed Tetanus 04/13/2022 Completed TDaP 04/13/2022 Completed Shingles 2 10/05/2018 Completed
--- OUTSIDE RECORDS SUMMARY | 2024-10-03 10:56 | External Medical Summary | Continuity Of Care Document ---
Author Name Unknown Address [address] [address] Organization [facility] () Care Team Providers Care Audio Installer Name Role Phone DO Machado Amy Primary Care Provider [phone] Allergies Allergy Reaction Start Date End Date [...] 3 0.1 mL 08/29 Inactiv e 2023 20951 68322 0 1 time Intrad ermal False Tubersol 5 tub. unit/0.1 mL intradermal injection solution [Tuberculin PPD] 0.1mL Intradermal 1 time For PPD 2nd Step Give 2nd Step PPD Day 1 and Read results Day 3 (schedule 7 days after 1st READ) 0.1mL 09/08 Inactiv e 2023 52783 75512 0 1 time Intrad ermal False [facility] - Nurse initials indicate verificatio n that [id number] vaccine was administere d by [facility] [...] order For Diabetes 08/25 Inactiv e 2023 33395 75058 9 4 times a day Subcut aneous False Aspirin 325 mg tablet [generic] 325 By Mouth Twice daily For Anticoagulati on 325 09/25 Active 2023 54534 06351 1 Twice daily By Mouth False Ferrous sulfate 325 mg (65 mg iron) tablet [generic] 325 By Mouth Once daily For anemia 325 2023 Active 2023 54260 89514 5 Once daily By Mouth False Linezolid 600 mg tablet [generic] 600 mg By Mouth Every 12 hours For MRSA INFECTION L BKA 600 mg 08/25 Inactiv e 2023 73853 09996 1 Every 12 hours By Mouth False Cefpodoxime 200 mg tablet [generic] 400 mg By Mouth Twice daily For MRSA INFECTION L BKA 400 mg 08/25 Inactiv e 2023 37258 09364 0 Twice daily By Mouth False Coenzyme Q10 100 mg tablet [generic] 100 mg By Mouth Once daily For SUPP 100 mg 2023 Active 2023 23867 35432 0 Once daily By Mouth False Levothyroxi ne 50 mcg tablet [generic] 50mcg By Mouth Once daily For hypothyroidis m 50mcg 2023 Active 2023 92928 33105 0 Once daily By Mouth False One A Day Men Complete 240 mcg-25 mcg-300 mcg tablet 1 tab By Mouth Once daily For supplement 1 tab 2023 Active 2023 86414 89707 1 Once daily By Mouth False Cholecalcif adalberto (vitamin D3) 50 mcg (2,000 unit) tablet [generic] 1 TAB By Mouth Once daily For SUPP 1 TAB 2023 Active 2023 61315 94423 1 Once daily By Mouth False Cetirizine 10 mg tablet [generic] 1 TAB By Mouth At bedtime For Allergies 1 TAB 2023 Active 2023 64725 28049 0 At bedtime By Mouth False Timolol maleate 0.25 % eye drops [generic] 1 drop Both Eyes Twice daily For glaucoma 1 drop 2023 Active 2023 90043 37923 5 Twice daily Both Eyes False Alendronate 35 mg tablet [generic] 35mg By Mouth Every week For SIADH 35mg 08/31 Inactiv e 2023 71191 51239 5 Every week By Mouth False Lantus Solostar U-100 Insulin 100 unit/mL (3 mL) subcutaneou s pen 18 units Subcutaneous Every morning For DIABETES 18 units 08/25 Inactiv e 2023 41443 27983 0 Every morning Subcut aneous False Lantus Solostar U-100 Insulin 100 unit/mL (3 mL) subcutaneou s pen 18 units Subcutaneous Every morning For DIABETES 18 units 2023 Active 2023 58525 04566 0 Every morning Subcut aneous False Linezolid 600 mg tablet [generic] 600 mg By Mouth Every 12 hours For MRSA INFECTION L BKA 600 mg 08/28 Inactiv e 2023 69532 68370 1 Every 12 hours By Mouth False [...] order For Diabetes 08/31 Inactiv e 2023 85634 02267 9 4 times a day Subcut aneous False Cefpodoxime 200 mg tablet [generic] 400 mg By Mouth Twice daily For MRSA INFECTION L BKA 400 mg 08/28 Inactiv e 2023 59899 99782 0 Twice daily By Mouth False Brimonidine 0.1 % eye drops [generic] 1 drop Both Eyes Twice daily For glaucoma 1 drop 2023 Active 2023 90156 25292 0 Twice daily Both Eyes False Metoprolol succinate ER 50 mg tablet,exte nded release 24 hr [generic] 50 mg By Mouth Once daily HOLD FOR SBP <100, or pulse <60 For HTN 50 mg 2023 Active 2023 74163 74402 1 Once daily By Mouth False Amlodipine 2.5 mg tablet [generic] 2.5 mg By Mouth Once daily For HTN 2.5 mg 2023 Active 2023 28420 83588 5 Once daily By Mouth False Docusate sodium 100 mg capsule [generic] 100mg By Mouth Twice daily as needed For constipation HOLD FOR LOOSE STOOLS 100mg 2023 Active 2023 04380 84345 1 Twice daily as needed By Mouth False Atorvastati n 40 mg tablet [generic] 40mg By Mouth Once daily For HDL 40mg 08/26 Inactiv e 2023 51652 97499 5 Once daily By Mouth False Tylenol 325 mg tablet 2 tabs By Mouth Every 4 hours as needed For Pain DO NOT EXCEED 3000 MG APAP/24 Hours 2 tabs 2023 Active 2023 96776 05933 0 Every 4 hours as needed By Mouth False Tylenol 325 mg tablet 2 tabs By Mouth Every 4 hours as needed For Fever >100 DO NOT EXCEED 3000 MG APAP/24 Hours 2 tabs 2023 Active 2023 01522 54801 0 Every 4 hours as needed By Mouth False Dulcolax (bisacodyl) 10 mg rectal suppository One Suppository per rectum PRN if Milk of Magnisia ineffective. Give on day 5 of no BM 1 sup 2023 Active 2023 15928 98617 1 Daily as needed Rectal False Fleet Enema 19 gram-7 gram/118 mL Administer per rectum PRN one time if dulcolax suppository not effective. Give on day 6 of no BM 1 2023 Active 2023 29237 24605 6 Daily as needed Rectal False Dextrose 50 % in water (D50W) intravenous solution [generic] Dextrose 50% evonne 20-50 ml (slow push) Intravenous if Glucagon not effective after 15 minutes. CALL 911 for ED Evaluation. 50% evonne 2023 Active 2023 03355 92067 9 Intrav enous False Glucagon (HCl) Emergency Kit 1 mg solution for injection Administer Glucagon 1 mg Intramuscular if 15 minutes after GLucose Gel is administered Glucose remains less than 70 1 mg 2023 Active 2023 22414 61972 2 Intram uscula r False Glucose Gel 40 % oral gel [Dextrose] PRN If resident is unable to swallow (with or without symptoms) and Glucose results less than 70 give GLucose 40% Gel 1 tube orally - Recheck Glucose 15 minutes after administratio n. 1 tube 2023 Active 2023 96293 76023 8 By Mouth False Milk of Magnesia 400 mg/5 mL oral suspension [Magnesium hydroxide] PRN 30ml By Mouth Daily as needed for constipation one time daily if no BM, on day 4 of no BM (PRN refer to instructions) For Constipation 30 mL 2023 Active 2023 20983 49879 6 Daily as needed By Mouth False Atorvastati n 40 mg tablet [generic] 08/26 Inactiv e 2023 00547 08502 5 Atorvastati n 40 mg tablet [generic] 40mg By Mouth Once daily For HDL 40mg 2023 Active 2023 54695 25108 5 Once daily By Mouth False Insulin aspart (U-100) 100 unit/mL (3 mL) subcutaneou s pen [generic] 15 units Subcutaneous 1 time For dm 15 units 08/26 Inactiv e 2023 46093 27130 5 1 time Subcut aneous False Humalog KwikPen (U-100) Insulin 100 unit/mL subcutaneou s 15 units Subcutaneous 1 time For dm 15 units 08/27 Inactiv e 2023 95630 71270 9 1 time Subcut aneous False Linezolid 600 mg tablet [generic] 600 mg By Mouth Every 12 hours For MRSA INFECTION L BKA 600 mg 09/06 Inactiv e 2023 87730 27545 1 Every 12 hours By Mouth False Cefpodoxime 200 mg tablet [generic] 400 mg By Mouth Twice daily For MRSA INFECTION L BKA 400 mg 08/31 Inactiv e 2023 68160 47756 0 Twice daily By Mouth False Senna 8.6 mg tablet 8.6 mg By Mouth Once daily For Constipation 8.6 mg 09/07 Inactiv e 2023 85601 35671 1 Once daily By Mouth False Humalog [...] abnormalities . Per Carb 2023 Active 2023 86145 22055 9 4 times a day Subcut aneous False Alendronate 35 mg tablet [generic] 08/31 Inactiv e 2023 44893 05484 5 Alendronate 35 mg tablet [generic] 35mg By Mouth Every week For Osteoporosis 35mg 202300 /0000 Active 2023 18728 73930 5 Every week By Mouth False ProSource 10 gram-100 kcal/30 mL oral liquid 30 ml By Mouth Once daily For wound healing 30 ml 2023 Active 2023 67306 09017 2 Once daily By Mouth False Clotrimazol e 1 % topical cream [generic] 1 applicaiton Topical Twice daily For tinea, apply to groin rash after cleansing and throughouly drying. Can discontinue order 3 days after rash resolves. 1 applica stacy 09/08 Inactiv e 2023 45916 96290 0 Twice daily Topica l False MAGIC MIX 1:1:1:1 : ZINC OXIDE EXTERNAL OINTMENT 40%; HYDROCOTISO NE EXTERNAL CREAM 1%; NYSTATIN EXTERNAL CREAM 452600K/GM; SILVADENE CREAM 1% Every shift Apply topically to MASD area on coccyx/buttoc ks each shift and as needed for incontinence care For MASD on coccyx layer 2023 Active 2023 Every shift Topica l False Senna 8.6 mg tablet 8.6 mg By Mouth Once daily For Constipation 8.6 mg 09/07 Inactiv e 2023 48093 16805 1 Once daily By Mouth False Senna 8.6 mg tablet 8.6 mg By Mouth Once daily As Needed For Constipation 8.6 mg 2023 Active 2023 39751 15265 1 Once daily By Mouth False BD AutoShield Duo Pen Needle 30 gauge x 3/16in 1 pen needle Subcutaneous 4 times a day For DM 1 pen needle 2023 Active 2023 73076 30158 5 4 times a day Subcut aneous False Hydrocortis one 1 % topical ointment [generic] 1 application Topical Twice daily For tinea *mix 1:1 with clotrimazole cream and apply to clean/dry groin rash 1 applica peggy 09/19 Inactiv e 2023 39356 86957 6 Twice daily Topica l False Clotrimazol e 1 % topical cream [generic] 1 applicaiton Topical Twice daily For tinea, apply to groin rash after cleansing and throughouly drying. MIX WITH HYDROCORTISON E Can discontinue order 3 days after rash resolves. 1 applica stacy 2023 Active 2023 94660 88683 0 Twice daily Topica l False Humalog KwikPen (U-100) Insulin 100 unit/mL subcutaneou s 08/31 Inactiv e 2023 35795 02979 9 MediHoney HCS 4 1/2in X 4 1/2in bandage Cleanse area with NSS, [facility] hydrocoll[facility] dressing, non adherent dressing, kerlix secure with paper tape daily. For wound stage III 1 2023 Active 2023 33755 86935 1 Once daily Topica l False Problems Code Description Start Date End Date Status D64.9 Anemia, unspecified 08/25/2024 Activ e I25.10 Atherosclerotic hear t disease of [place] coronary artery without angina pectoris 08/25/2024 Active [...] weight Temperature SpO2 Blood Sugar Pulse Respirations 96125 8 67.00 mm[Hg] - Sitting 145.00 mm[Hg] - Sitting 98.50 Forehead Scan 96.00 % 81.00/ min 16.00/min 004 19975 2 67.00 mm[Hg] - Sitting 145.00 mm[Hg] - Sitting 98.50 Tympanic 81.00/ min 16.00/min 38645 004 01772 5 56.00 mm[Hg] - Sitting 142.00 mm[Hg] - Sitting 136.40 NI 100.20 Tympanic 96.00 % 92.00/ min 18.00/min 09846 004 76260 6 92344 004 24905 4 143.00 mg/dL 50040 0 97.80 Tympanic 005 96452 7 60.00 mm[Hg] - Sitting 140.00 mm[Hg] - Sitting 98.00 Tympanic 84.00/ min 18.00/min 30073 005 44496 0 63.00 mm[Hg] - Sitting 141.00 mm[Hg] - Sitting 98.20 Tympanic 92.00 % 63.00/ min 16.00/min 17892 005 94471 8 69.00 mm[Hg] - Sitting 106.00 mm[Hg] - Sitting 97.20 Tympanic 47829 005 86632 7 69.00/ min 16.00/min 24195 005 70671 3 69.00 mm[Hg] - Sitting 106.00 mm[Hg] - Sitting 98.20 Tympanic 69.00/ min 16.00/min 77597 005 18779 1 367.00 mg/dL 98150 005 14227 2 97.20 Tympanic 50284 005 46620 4 97.20 Tympanic 18209 005 41027 0 69.00 mm[Hg] - Sitting 106.00 mm[Hg] - Sitting 69.00/ min 15827 005 99775 3 452.00 mg/dL 95281 005 96833 3 452.00 mg/dL 48993 005 07598 5 352.00 mg/dL 91950 005 89123 3 352.00 mg/dL 27731 005 63891 7 98.20 Tympanic 36237 005 3 101.00 mg/dL 91674 005 8 101.00 mg/dL 41737 006 30201 4 66.00 mm[Hg] - Sitting 107.00 mm[Hg] - Sitting 98.00 Tympanic 66.00/ min 18.00/min 47736 006 85501 0 62.00 mm[Hg] - Sitting 162.00 mm[Hg] - Sitting 98.20 Tympanic 96.00 % 60.00/ min 16.00/min 78643 006 18524 4 62.00 mm[Hg] - Sitting 162.00 mm[Hg] - Sitting 98.00 Tympanic 70.00/ min 18.00/min 93075 006 47556 8 62.00 mm[Hg] - Sitting 162.00 mm[Hg] - Sitting 98.20 Tympanic 70.00/ min 18.00/min 60904 006 22404 2 66.00 mm[Hg] - Sitting 132.00 mm[Hg] - Sitting 98.60 Tympanic 74.00/ min 16.00/min 83421 006 50339 5 159.00 mg/dL 43026 006 02486 1 159.00 mg/dL 01717 006 50723 8 98.00 Tympanic 45121 006 04034 2 62.00 mm[Hg] - Sitting 162.00 mm[Hg] - Sitting 70.00/ min 62187 006 25016 7 264.00 mg/dL 93072 006 34056 7 264.00 mg/dL 88636 006 62389 4 196.00 mg/dL 01001 006 86495 3 98.20 Tympanic 04739 006 67072 6 271.00 mg/dL 28377 007 75629 3 97.20 Tympanic 12105 007 57402 2 63.00 mm[Hg] - Sitting 132.00 mm[Hg] - Sitting 98.50 Tympanic 94.00 % 66.00/ min 16.00/min 69069 007 24340 5 188.00 mg/dL 81249 007 32923 2 188.00 mg/dL 97506 007 83873 2 188.00 mg/dL 15677 007 79020 7 97.20 Tympanic 85441 007 52586 6 97.20 Tympanic 00981 007 97503 5 67.00 mm[Hg] - Sitting 152.00 mm[Hg] - Sitting 68.00/ min 01224 007 95582 0 141.00 mg/dL 25682 007 98032 3 141.00 mg/dL 20189 007 55691 1 366.00 mg/dL 69109 007 59139 7 366.00 mg/dL 15617 007 37678 7 98.00 Tympanic 16394 007 72064 6 324.00 mg/dL 31619 007 51737 3 98.00 Tympanic 36468 007 17424 7 324.00 mg/dL 25733 008 16544 0 98.00 Tympanic 17144 008 38084 2 97.90 Tympanic 26337 008 26538 0 98.20 Tympanic 79423 008 54431 0 73.00 mm[Hg] - Sitting 156.00 mm[Hg] - Sitting 98.60 Tympanic 99.00 % 66.00/ min 20.00/min 46877 008 63205 5 137.00 mg/dL 18398 008 89651 7 137.00 mg/dL 45913 008 57278 2 97.90 Tympanic 66600 008 12816 1 137.00 mg/dL 84772 008 27636 8 97.90 Tympanic 73765 008 97837 5 67.00 mm[Hg] - Sitting 124.00 /min 13858 008 83464 6 212.00 mg/dL 65281 008 11197 6 212.00 mg/dL 84161 008 94427 9 317.00 mg/dL 84780 008 16265 4 317.00 mg/dL 43077 008 83931 8 252.00 mg/dL 44592 008 25165 0 98.70 Tympanic 37748 008 38736 7 252.00 mg/dL 36556 008 86284 3 98.70 Tympanic 36426 009 52571 9 98.70 Tympanic 93304 009 77171 3 98.20 Tympanic 55728 009 12130 5 98.40 Tympanic 52093 009 75836 5 57.00 mm[Hg] - Sitting 129.00 mm[Hg] - Sitting 98.30 Tympanic 97.00 % 65.00/ min 18.00/min 68222 009 38460 1 255.00 mg/dL 84553 009 90474 4 255.00 mg/dL 82908 009 25776 5 98.20 Tympanic 51639 009 96469 0 255.00 mg/dL 52455 009 53612 0 98.20 Tympanic 25024 009 29456 4 63.00 mm[Hg] - Lying Down 102.00 mm[Hg] - Lying Down 58.00/ min 01042 009 54997 0 167.00 mg/dL 89862 009 27461 1 167.00 mg/dL 24572 009 31696 2 164.00 mg/dL 25715 009 22735 1 164.00 mg/dL 89316 009 89081 5 208.00 mg/dL 73233 010 38087 3 98.40 Tympanic 30457 010 83030 5 98.40 Tympanic 65994 010 34592 7 66 NI 01461 010 59387 4 60.00 mm[Hg] - Sitting 143.00 mm[Hg] - Sitting 98.90 Tympanic 98.00 % 67.00/ min 18.00/min 10775 010 85377 2 214.00 mg/dL 40294 010 57086 0 214.00 mg/dL 89015 010 36449 7 214.00 mg/dL 88901 010 71767 6 64.00 mm[Hg] - Sitting 110.00 mm[Hg] - Sitting 72.00/ min 57129 010 63763 7 98.40 Tympanic 55487 010 97892 1 212.00 mg/dL 62739 010 05139 2 212.00 mg/dL 63703 010 20266 1 115.00 mg/dL 35660 010 96498 0 115.00 mg/dL 55077 010 17926 4 98.50 Tympanic 67357 010 63252 4 150.00 mg/dL 10333 010 92820 0 150.00 mg/dL 27288 011 32300 9 98.60 Tympanic 11619 011 53812 1 67.00 mm[Hg] - Sitting 144.00 mm[Hg] - Sitting 98.20 Tympanic 98.00 % 61.00/ min 18.00/min 49806 011 40628 7 290.00 mg/dL 63045 011 78941 2 290.00 mg/dL 38792 011 86885 2 290.00 mg/dL 11197 011 69890 7 54.00 mm[Hg] - Sitting 136.00 mm[Hg] - Sitting 101.00 /min 09744 011 62555 7 98.60 Tympanic 99030 011 76932 5 240.00 mg/dL 30523 011 38946 1 240.00 mg/dL 36020 011 49223 1 156.00 mg/dL 72654 011 73952 9 156.00 mg/dL 47512 011 11652 0 97.80 Tympanic 07768 011 32115 8 343.00 mg/dL 10961 012 05395 9 97.90 Tympanic 45922 012 31180 2 466.00 mg/dL 73168 012 53729 1 466.00 mg/dL 38547 012 72481 3 466.00 mg/dL 54452 012 21957 8 97.90 Tympanic 68354 012 92879 8 56.00 mm[Hg] - Sitting 96.00 mm[Hg] - Sitting 61.00/ min 10396 012 03064 7 350.00 mg/dL 96629 012 30624 5 350.00 mg/dL 35898 012 11682 6 111.00 mg/dL 69703 012 87612 0 111.00 mg/dL 07918 012 21251 5 98.40 Tympanic 27989 012 01534 6 114.00 mg/dL 05429 013 51323 4 74.00 mm[Hg] - Sitting 112.00 mm[Hg] - Sitting 98.40 Tympanic 70.00/ min 18.00/min 54131 013 96370 8 244.00 mg/dL 67197 013 90316 7 244.00 mg/dL 10522 013 38304 1 244.00 mg/dL 94322 013 77664 1 98.20 Tympanic 45075 013 12303 7 72.00 mm[Hg] - Sitting 119.00 mm[Hg] - Sitting 76.00/ min 25777 013 61426 7 253.00 mg/dL 44950 013 64998 4 253.00 mg/dL 42991 013 94046 9 156.00 mg/dL 53270 013 79435 5 156.00 mg/dL 87717 013 30109 4 97.90 Tympanic 08664 013 79210 5 189.00 mg/dL 97696 014 23857 9 98.10 Tympanic 94610 014 19017 0 61.00 mm[Hg] - Sitting 139.00 mm[Hg] - Sitting 98.20 Forehead Scan 99.00 % 66.00/ min 18.00/min 48596 014 17554 3 169.00 mg/dL 62820 014 08714 3 98.10 Tympanic 57126 014 09600 3 75.00 mm[Hg] - Sitting 121.00 mm[Hg] - Sitting 71.00/ min 96412 014 75891 9 221.00 mg/dL 92610 014 27363 9 62.00 mg/dL 68858 014 57435 5 62.00 mg/dL 53441 014 30042 8 156.00 mg/dL 73198 014 65472 6 98.10 Tympanic 98343 014 07910 7 156.00 mg/dL 46506 015 26914 4 02500 015 38729 7 62.00 mm[Hg] - Sitting 142.00 mm[Hg] - Sitting 98.20 Tympanic 99.00 % 67.00/ min 18.00/min 82006 015 63625 9 120.00 mg/dL 75310 015 04991 7 98.00 Tympanic 09038 015 88639 2 82.00 mm[Hg] - Sitting 119.00 /min 55334 015 03337 9 110.00 mg/dL 26039 015 97557 6 104.00 mg/dL 01446 015 66310 0 100.00 mg/dL 08894 015 40119 2 98.10 Tympanic 15058 015 92967 6 100.00 mg/dL 97243 016 27834 2 67.00 mm[Hg] - Sitting 147.00 mm[Hg] - Sitting 99.00 Tympanic 99.00 % 78.00/ min 20.00/min 93324 016 02663 5 158.00 mg/dL 07377 016 48588 1 158.00 mg/dL 94552 016 42122 2 158.00 mg/dL 71938 016 92455 0 66.00 mm[Hg] - Sitting 121.00 mm[Hg] - Sitting 74.00/ min 14514 016 36214 1 97.00 mg/dL 88521 016 90493 5 97.00 mg/dL 29538 016 96762 4 78.00 mg/dL 57500 016 14683 6 78.00 mg/dL 62822 016 76413 5 248.00 mg/dL 86040 016 91512 8 248.00 mg/dL 71973 017 28865 3 54.00 mm[Hg] - Sitting 142.00 mm[Hg] - Sitting 98.30 Tympanic 99.00 % 76.00/ min 18.00/min 13614 017 17197 4 267.00 mg/dL 14277 017 82324 6 73.00 mm[Hg] - Sitting 109.00 mm[Hg] - Sitting 70.00/ min 72117 017 81981 1 184.00 mg/dL 10806 017 91183 5 184.00 mg/dL 88872 017 24080 9 248.00 mg/dL 28223 017 27852 8 299.00 mg/dL 28598 017 34621 3 299.00 mg/dL 43137 018 69269 7 50.00 mm[Hg] - Sitting 125.00 mm[Hg] - Sitting 98.30 Tympanic 98.00 % 76.00/ min 16.00/min 12511 018 42441 3 168.00 mg/dL 36571 018 84549 0 75.00 mm[Hg] - Sitting 121.00 mm[Hg] - Sitting 70.00/ min 82500 018 21761 7 264.00 mg/dL 44230 018 58109 6 132.00 mg/dL 39790 018 82812 6 154.00 mg/dL 89466 018 52694 6 154.00 mg/dL 83502 019 32216 4 63.00 mm[Hg] - Sitting 147.00 mm[Hg] - Sitting 98.50 Tympanic 99.00 % 69.00/ min 18.00/min 31136 019 97998 9 159.00 mg/dL 31636 019 55059 8 73.00 mm[Hg] - Sitting 110.00 mm[Hg] - Sitting 72.00/ min 30541 019 92503 4 191.00 mg/dL 04340 019 45744 8 70.00 mg/dL 95538 019 51033 4 70.00 mg/dL 64779 019 39893 6 198.00 mg/dL 71211 019 03091 0 198.00 mg/dL 17969 020 22262 2 59.00 mm[Hg] - Sitting 131.00 mm[Hg] - Sitting 98.90 Tympanic 99.00 % 69.00/ min 18.00/min 94098 020 69879 7 299.00 mg/dL 50415 020 16391 0 62.00 mm[Hg] - Sitting 132.00 mm[Hg] - Sitting 68.00/ min 51764 020 73898 3 299.00 mg/dL 15892 020 26330 3 299.00 mg/dL 86589 020 92682 9 220.00 mg/dL 34691 020 00860 1 220.00 mg/dL 66632 020 45215 1 270.00 mg/dL 85483 020 43429 4 270.00 mg/dL 67025 020 12833 9 143.00 mg/dL 68557 020 62319 4 143.00 mg/dL 12106 021 66561 0 59.00 mm[Hg] - Sitting 121.00 mm[Hg] - Sitting 98.40 Forehead Scan 98.00 % 70.00/ min 16.00/min 97819 021 62115 0 140.00 mg/dL 60658 021 59337 0 67.00 mm[Hg] - Sitting 130.00 mm[Hg] - Sitting 68.00/ min 25211 021 34650 8 140.00 mg/dL 73535 021 56786 6 140.00 mg/dL 22336 021 86841 8 156.00 mg/dL 22261 021 02604 1 156.00 mg/dL 00943 021 30609 5 146.00 mg/dL 88915 021 88911 4 146.00 mg/dL 76270 021 69414 5 183.00 mg/dL 21049 021 29054 2 183.00 mg/dL 42640 022 02351 3 67771 022 65904 1 43.00 mm[Hg] - Sitting 113.00 mm[Hg] - Sitting 97.80 Tympanic 97.00 % 64.00/ min 18.00/min 90544 022 99442 6 270.00 mg/dL 53284 022 03115 5 68.00 mm[Hg] - Sitting 122.00 mm[Hg] - Sitting 67.00/ min 35789 022 23035 9 270.00 mg/dL 52867 022 39222 4 270.00 mg/dL 11422 022 51567 4 207.00 mg/dL 71387 022 93820 8 207.00 mg/dL 81766 022 87608 9 217.00 mg/dL 30700 022 12420 2 217.00 mg/dL 98393 022 51739 0 192.00 mg/dL 03849 022 69736 9 192.00 mg/dL 24122 023 14834 8 48.00 mm[Hg] - Sitting 116.00 mm[Hg] - Sitting 98.50 Tympanic 97.00 % 63.00/ min 18.00/min 26837 023 11709 9 68.00 mm[Hg] - Sitting 131.00 mm[Hg] - Sitting 68.00/ min 46916 023 48485 8 235.00 mg/dL 30905 023 78939 4 235.00 mg/dL 41883 023 77627 0 235.00 mg/dL 36191 023 70736 0 199.00 mg/dL 20435 023 92104 7 199.00 mg/dL 74231 023 69043 4 233.00 mg/dL 32990 023 08637 3 233.00 mg/dL 28776 023 67090 6 229.00 mg/dL 77737 023 87558 4 229.00 mg/dL 60121 024 09036 3 58.00 mm[Hg] - Sitting 102.00 mm[Hg] - Sitting 58.00/ min 04588 024 45610 9 156.00 mg/dL 88683 024 63576 4 156.00 mg/dL 26067 024 53776 3 156.00 mg/dL 76654 024 45308 0 343.00 mg/dL 13211 024 57955 6 343.00 mg/dL 46919 024 78864 2 167.00 mg/dL 35468 024 15936 0 167.00 mg/dL 06912 024 44501 8 155.00 mg/dL 33059 024 73646 7 155.00 mg/dL 67555 025 78037 0 51.00 mm[Hg] - Lying Down 109.00 mm[Hg] - Lying Down 98.60 Tympanic 95.00 % 67.00/ min 20.00/min 39756 025 33510 0 60.00 mm[Hg] - Sitting 118.00 mm[Hg] - Sitting 98.30 Forehead Scan 98.00 % 68.00/ min 16.00/min 53450 025 84323 3 235.00 mg/dL 04856 025 01825 1 63.00 mm[Hg] - Sitting 110.00 mm[Hg] - Sitting 75.00/ min 35339 025 76545 9 295.00 mg/dL 58161 025 06639 4 94.00 mg/dL 97762 025 57488 1 132.00 mg/dL 16011 025 35626 2 132.00 mg/dL 23428 026 93739 8 50.00 mm[Hg] - Sitting 123.00 mm[Hg] - Sitting 98.50 Tympanic 95.00 % 66.00/ min 18.00/min 12736 026 05313 0 275.00 mg/dL 77796 026 75707 7 275.00 mg/dL 66398 026 51909 1 275.00 mg/dL 33487 026 24314 6 67.00 mm[Hg] - Sitting 123.00 mm[Hg] - Sitting 66.00/ min 62024 026 15549 3 187.00 mg/dL 61443 026 84135 5 187.00 mg/dL 12515 026 50936 0 167.00 mg/dL 46535 026 91292 8 167.00 mg/dL 21931 026 72024 6 387.00 mg/dL 19635 027 36159 7 53.00 mm[Hg] - Sitting 132.00 mm[Hg] - Sitting 98.60 Tympanic 97.00 % 64.00/ min 18.00/min 78256 027 25407 9 189.00 mg/dL 56565 027 68664 4 67.00 mm[Hg] - Sitting 118.00 mm[Hg] - Sitting 66.00/ min 99596 027 45607 2 189.00 mg/dL 02401 027 93430 7 189.00 mg/dL 00713 027 89609 1 105.00 mg/dL 03707 027 70399 8 105.00 mg/dL 41766 027 93971 4 223.00 mg/dL 61085 027 02350 9 223.00 mg/dL 46706 027 52415 9 164.00 mg/dL 77522 028 87607 0 68.00 mm[Hg] - Sitting 115.00 mm[Hg] - Sitting 98.60 Forehead Scan 96.00 % 71.00/ min 16.00/min 60412 028 06286 1 200.00 mg/dL 98245 028 00037 9 200.00 mg/dL 18416 028 73740 1 69.00 mm[Hg] - Sitting 122.00 mm[Hg] - Sitting 67.00/ min 72304 028 65000 3 200.00 mg/dL 33100 028 14300 0 117.00 mg/dL 21900 028 65972 0 117.00 mg/dL 71881 028 60685 1 114.00 mg/dL 24832 028 24932 7 114.00 mg/dL 71839 028 04832 0 179.00 mg/dL 69752 028 66320 8 179.00 mg/dL 029 60268 9 147.00 mg/dL 029 12230 0 147.00 mg/dL 029 09984 4 147.00 mg/dL 029 45133 1 63.00 mm[Hg] - Sitting 118.00 mm[Hg] - Sitting 74.00/ min 029 94372 2 278.00 mg/dL 029 57610 3 278.00 mg/dL Immunizations Vaccine Date Status COVID-19 09/20/2023 Completed Influenza 09/14/2024 Completed Other 10/08/2023 Completed Shingles 05/27/2011 Completed Tetanus 04/13/2022 Completed TDaP 04/13/2022 Completed Shingles 2 10/05/2018 Completed
--- OUTSIDE RECORDS SUMMARY | 2024-10-03 10:57 | External Medical Summary | Continuity Of Care Document ---
Author Name Unknown Address [address] [address] Organization [facility] () Care Team Providers Care Line Maintenance Supervisor Name Role Phone DO Machado Amy Primary Care Provider [phone] Allergies Allergy Reaction Start Date End Date [...] 3 0.1 mL 08/29 Inactiv e 2023 16757 89879 0 1 time Intrad ermal False Tubersol 5 tub. unit/0.1 mL intradermal injection solution [Tuberculin PPD] 0.1mL Intradermal 1 time For PPD 2nd Step Give 2nd Step PPD Day 1 and Read results Day 3 (schedule 7 days after 1st READ) 0.1mL 09/08 Inactiv e 2023 55465 32977 0 1 time Intrad ermal False [facility] - Nurse initials indicate verificatio n that [id number] vaccine was administere d by [facility] [...] order For Diabetes 08/25 Inactiv e 2023 75579 35920 9 4 times a day Subcut aneous False Aspirin 325 mg tablet [generic] 325 By Mouth Twice daily For Anticoagulati on 325 09/25 Active 2023 12214 26613 1 Twice daily By Mouth False Ferrous sulfate 325 mg (65 mg iron) tablet [generic] 325 By Mouth Once daily For anemia 325 2023 Active 2023 70135 07644 5 Once daily By Mouth False Linezolid 600 mg tablet [generic] 600 mg By Mouth Every 12 hours For MRSA INFECTION L BKA 600 mg 08/25 Inactiv e 2023 22168 22796 1 Every 12 hours By Mouth False Cefpodoxime 200 mg tablet [generic] 400 mg By Mouth Twice daily For MRSA INFECTION L BKA 400 mg 08/25 Inactiv e 2023 33063 49196 0 Twice daily By Mouth False Coenzyme Q10 100 mg tablet [generic] 100 mg By Mouth Once daily For SUPP 100 mg 2023 Active 2023 95050 21716 0 Once daily By Mouth False Levothyroxi ne 50 mcg tablet [generic] 50mcg By Mouth Once daily For hypothyroidis m 50mcg 2023 Active 2023 20326 84221 0 Once daily By Mouth False One A Day Men Complete 240 mcg-25 mcg-300 mcg tablet 1 tab By Mouth Once daily For supplement 1 tab 2023 Active 2023 30527 36519 1 Once daily By Mouth False Cholecalcif adalberto (vitamin D3) 50 mcg (2,000 unit) tablet [generic] 1 TAB By Mouth Once daily For SUPP 1 TAB 2023 Active 2023 51906 93754 1 Once daily By Mouth False Cetirizine 10 mg tablet [generic] 1 TAB By Mouth At bedtime For Allergies 1 TAB 2023 Active 2023 61716 04745 0 At bedtime By Mouth False Timolol maleate 0.25 % eye drops [generic] 1 drop Both Eyes Twice daily For glaucoma 1 drop 2023 Active 2023 25656 26628 5 Twice daily Both Eyes False Alendronate 35 mg tablet [generic] 35mg By Mouth Every week For SIADH 35mg 08/31 Inactiv e 2023 67477 91775 5 Every week By Mouth False Lantus Solostar U-100 Insulin 100 unit/mL (3 mL) subcutaneou s pen 18 units Subcutaneous Every morning For DIABETES 18 units 08/25 Inactiv e 2023 93614 24411 0 Every morning Subcut aneous False Lantus Solostar U-100 Insulin 100 unit/mL (3 mL) subcutaneou s pen 18 units Subcutaneous Every morning For DIABETES 18 units 2023 Active 2023 40181 15055 0 Every morning Subcut aneous False Linezolid 600 mg tablet [generic] 600 mg By Mouth Every 12 hours For MRSA INFECTION L BKA 600 mg 08/28 Inactiv e 2023 81077 34172 1 Every 12 hours By Mouth False [...] order For Diabetes 08/31 Inactiv e 2023 56187 25517 9 4 times a day Subcut aneous False Cefpodoxime 200 mg tablet [generic] 400 mg By Mouth Twice daily For MRSA INFECTION L BKA 400 mg 08/28 Inactiv e 2023 34270 78840 0 Twice daily By Mouth False Brimonidine 0.1 % eye drops [generic] 1 drop Both Eyes Twice daily For glaucoma 1 drop 2023 Active 2023 96823 12044 0 Twice daily Both Eyes False Metoprolol succinate ER 50 mg tablet,exte nded release 24 hr [generic] 50 mg By Mouth Once daily HOLD FOR SBP <100, or pulse <60 For HTN 50 mg 2023 Active 2023 36633 11920 1 Once daily By Mouth False Amlodipine 2.5 mg tablet [generic] 2.5 mg By Mouth Once daily For HTN 2.5 mg 2023 Active 2023 08247 79874 5 Once daily By Mouth False Docusate sodium 100 mg capsule [generic] 100mg By Mouth Twice daily as needed For constipation HOLD FOR LOOSE STOOLS 100mg 2023 Active 2023 10843 05387 1 Twice daily as needed By Mouth False Atorvastati n 40 mg tablet [generic] 40mg By Mouth Once daily For HDL 40mg 08/26 Inactiv e 2023 84038 95766 5 Once daily By Mouth False Tylenol 325 mg tablet 2 tabs By Mouth Every 4 hours as needed For Pain DO NOT EXCEED 3000 MG APAP/24 Hours 2 tabs 2023 Active 2023 95242 91241 0 Every 4 hours as needed By Mouth False Tylenol 325 mg tablet 2 tabs By Mouth Every 4 hours as needed For Fever >100 DO NOT EXCEED 3000 MG APAP/24 Hours 2 tabs 2023 Active 2023 22430 59044 0 Every 4 hours as needed By Mouth False Dulcolax (bisacodyl) 10 mg rectal suppository One Suppository per rectum PRN if Milk of Magnisia ineffective. Give on day 5 of no BM 1 sup 2023 Active 2023 50178 04291 1 Daily as needed Rectal False Fleet Enema 19 gram-7 gram/118 mL Administer per rectum PRN one time if dulcolax suppository not effective. Give on day 6 of no BM 1 2023 Active 2023 21139 62425 6 Daily as needed Rectal False Dextrose 50 % in water (D50W) intravenous solution [generic] Dextrose 50% evonne 20-50 ml (slow push) Intravenous if Glucagon not effective after 15 minutes. CALL 911 for ED Evaluation. 50% evonne 2023 Active 2023 08278 02396 9 Intrav enous False Glucagon (HCl) Emergency Kit 1 mg solution for injection Administer Glucagon 1 mg Intramuscular if 15 minutes after GLucose Gel is administered Glucose remains less than 70 1 mg 2023 Active 2023 41018 34498 2 Intram uscula r False Glucose Gel 40 % oral gel [Dextrose] PRN If resident is unable to swallow (with or without symptoms) and Glucose results less than 70 give GLucose 40% Gel 1 tube orally - Recheck Glucose 15 minutes after administratio n. 1 tube 2023 Active 2023 72691 46235 8 By Mouth False Milk of Magnesia 400 mg/5 mL oral suspension [Magnesium hydroxide] PRN 30ml By Mouth Daily as needed for constipation one time daily if no BM, on day 4 of no BM (PRN refer to instructions) For Constipation 30 mL 2023 Active 2023 03314 83068 6 Daily as needed By Mouth False Atorvastati n 40 mg tablet [generic] 08/26 Inactiv e 2023 07108 98416 5 Atorvastati n 40 mg tablet [generic] 40mg By Mouth Once daily For HDL 40mg 2023 Active 2023 15217 71217 5 Once daily By Mouth False Insulin aspart (U-100) 100 unit/mL (3 mL) subcutaneou s pen [generic] 15 units Subcutaneous 1 time For dm 15 units 08/26 Inactiv e 2023 51443 16229 5 1 time Subcut aneous False Humalog KwikPen (U-100) Insulin 100 unit/mL subcutaneou s 15 units Subcutaneous 1 time For dm 15 units 08/27 Inactiv e 2023 84979 66074 9 1 time Subcut aneous False Linezolid 600 mg tablet [generic] 600 mg By Mouth Every 12 hours For MRSA INFECTION L BKA 600 mg 09/06 Inactiv e 2023 13819 62395 1 Every 12 hours By Mouth False Cefpodoxime 200 mg tablet [generic] 400 mg By Mouth Twice daily For MRSA INFECTION L BKA 400 mg 08/31 Inactiv e 2023 92073 27838 0 Twice daily By Mouth False Senna 8.6 mg tablet 8.6 mg By Mouth Once daily For Constipation 8.6 mg 09/07 Inactiv e 2023 92230 67440 1 Once daily By Mouth False Humalog [...] abnormalities . Per Carb 2023 Active 2023 00131 05767 9 4 times a day Subcut aneous False Alendronate 35 mg tablet [generic] 08/31 Inactiv e 2023 93772 13724 5 Alendronate 35 mg tablet [generic] 35mg By Mouth Every week For Osteoporosis 35mg 202300 /0000 Active 2023 52972 36852 5 Every week By Mouth False ProSource 10 gram-100 kcal/30 mL oral liquid 30 ml By Mouth Once daily For wound healing 30 ml 2023 Active 2023 29405 40119 2 Once daily By Mouth False Clotrimazol e 1 % topical cream [generic] 1 applicaiton Topical Twice daily For tinea, apply to groin rash after cleansing and throughouly drying. Can discontinue order 3 days after rash resolves. 1 applica stacy 09/08 Inactiv e 2023 27551 98340 0 Twice daily Topica l False MAGIC MIX 1:1:1:1 : ZINC OXIDE EXTERNAL OINTMENT 40%; HYDROCOTISO NE EXTERNAL CREAM 1%; NYSTATIN EXTERNAL CREAM 571978K/GM; SILVADENE CREAM 1% Every shift Apply topically to MASD area on coccyx/buttoc ks each shift and as needed for incontinence care For MASD on coccyx layer 2023 Active 2023 Every shift Topica l False Senna 8.6 mg tablet 8.6 mg By Mouth Once daily For Constipation 8.6 mg 09/07 Inactiv e 2023 98980 82133 1 Once daily By Mouth False Senna 8.6 mg tablet 8.6 mg By Mouth Once daily As Needed For Constipation 8.6 mg 2023 Active 2023 98617 65308 1 Once daily By Mouth False BD AutoShield Duo Pen Needle 30 gauge x 3/16in 1 pen needle Subcutaneous 4 times a day For DM 1 pen needle 2023 Active 2023 16603 53904 5 4 times a day Subcut aneous False Hydrocortis one 1 % topical ointment [generic] 1 application Topical Twice daily For tinea *mix 1:1 with clotrimazole cream and apply to clean/dry groin rash 1 applica peggy 09/19 Inactiv e 2023 16760 93952 6 Twice daily Topica l False Clotrimazol e 1 % topical cream [generic] 1 applicaiton Topical Twice daily For tinea, apply to groin rash after cleansing and throughouly drying. MIX WITH HYDROCORTISON E Can discontinue order 3 days after rash resolves. 1 applica stacy 2023 Active 2023 72179 29204 0 Twice daily Topica l False Humalog KwikPen (U-100) Insulin 100 unit/mL subcutaneou s 08/31 Inactiv e 2023 01058 31143 9 MediHoney HCS 4 1/2in X 4 1/2in bandage Cleanse area with NSS, [facility] hydrocolloid dressing, non adherent dressing, kerlix secure with paper tape daily. For wound stage III 1 2023 Active 2023 48684 74057 1 Once daily Topica l False Problems Code Description Start Date End Date Status D64.9 Anemia, unspecified 08/25/2024 Activ e I25.10 Atherosclerotic hear t disease of [place] coronary artery without angina pectoris 08/25/2024 Active [...] weight Temperature SpO2 Blood Sugar Pulse Respirations 80313 8 67.00 mm[Hg] - Sitting 145.00 mm[Hg] - Sitting 98.50 Forehead Scan 96.00 % 81.00/ min 16.00/min 004 45286 2 67.00 mm[Hg] - Sitting 145.00 mm[Hg] - Sitting 98.50 Tympanic 81.00/ min 16.00/min 12587 004 73255 5 56.00 mm[Hg] - Sitting 142.00 mm[Hg] - Sitting 136.40 NI 100.20 Tympanic 96.00 % 92.00/ min 18.00/min 17070 004 50713 6 00362 004 22114 4 143.00 mg/dL 51991 0 97.80 Tympanic 005 71693 7 60.00 mm[Hg] - Sitting 140.00 mm[Hg] - Sitting 98.00 Tympanic 84.00/ min 18.00/min 79002 005 79751 0 63.00 mm[Hg] - Sitting 141.00 mm[Hg] - Sitting 98.20 Tympanic 92.00 % 63.00/ min 16.00/min 60265 005 16838 8 69.00 mm[Hg] - Sitting 106.00 mm[Hg] - Sitting 97.20 Tympanic 76728 005 03045 7 69.00/ min 16.00/min 31461 005 92041 3 69.00 mm[Hg] - Sitting 106.00 mm[Hg] - Sitting 98.20 Tympanic 69.00/ min 16.00/min 88776 005 04627 1 367.00 mg/dL 80016 005 56244 2 97.20 Tympanic 76757 005 12759 4 97.20 Tympanic 13974 005 24583 0 69.00 mm[Hg] - Sitting 106.00 mm[Hg] - Sitting 69.00/ min 45564 005 38009 3 452.00 mg/dL 05290 005 03098 3 452.00 mg/dL 29686 005 75108 5 352.00 mg/dL 84441 005 45934 3 352.00 mg/dL 27453 005 72392 7 98.20 Tympanic 34354 005 3 101.00 mg/dL 78182 005 8 101.00 mg/dL 72920 006 72044 4 66.00 mm[Hg] - Sitting 107.00 mm[Hg] - Sitting 98.00 Tympanic 66.00/ min 18.00/min 21729 006 48794 0 62.00 mm[Hg] - Sitting 162.00 mm[Hg] - Sitting 98.20 Tympanic 96.00 % 60.00/ min 16.00/min 18621 006 04133 4 62.00 mm[Hg] - Sitting 162.00 mm[Hg] - Sitting 98.00 Tympanic 70.00/ min 18.00/min 90914 006 25730 8 62.00 mm[Hg] - Sitting 162.00 mm[Hg] - Sitting 98.20 Tympanic 70.00/ min 18.00/min 97838 006 58114 2 66.00 mm[Hg] - Sitting 132.00 mm[Hg] - Sitting 98.60 Tympanic 74.00/ min 16.00/min 57948 006 26095 5 159.00 mg/dL 99250 006 15032 1 159.00 mg/dL 71057 006 39406 8 98.00 Tympanic 24019 006 53461 2 62.00 mm[Hg] - Sitting 162.00 mm[Hg] - Sitting 70.00/ min 30262 006 77107 7 264.00 mg/dL 53889 006 68659 7 264.00 mg/dL 18689 006 70737 4 196.00 mg/dL 79599 006 32843 3 98.20 Tympanic 62073 006 23782 6 271.00 mg/dL 31773 007 98138 3 97.20 Tympanic 42656 007 01624 2 63.00 mm[Hg] - Sitting 132.00 mm[Hg] - Sitting 98.50 Tympanic 94.00 % 66.00/ min 16.00/min 59531 007 15447 5 188.00 mg/dL 96004 007 78994 2 188.00 mg/dL 49613 007 58131 2 188.00 mg/dL 22518 007 88193 7 97.20 Tympanic 49631 007 99037 6 97.20 Tympanic 58152 007 56018 5 67.00 mm[Hg] - Sitting 152.00 mm[Hg] - Sitting 68.00/ min 41050 007 46004 0 141.00 mg/dL 31636 007 67741 3 141.00 mg/dL 49813 007 08563 1 366.00 mg/dL 33045 007 78704 7 366.00 mg/dL 14094 007 81518 7 98.00 Tympanic 62219 007 12616 6 324.00 mg/dL 72042 007 96524 3 98.00 Tympanic 89408 007 89335 7 324.00 mg/dL 52550 008 16046 0 98.00 Tympanic 54918 008 75457 2 97.90 Tympanic 73953 008 52239 0 98.20 Tympanic 70557 008 08359 0 73.00 mm[Hg] - Sitting 156.00 mm[Hg] - Sitting 98.60 Tympanic 99.00 % 66.00/ min 20.00/min 81612 008 98103 5 137.00 mg/dL 22213 008 49790 7 137.00 mg/dL 29669 008 21192 2 97.90 Tympanic 93599 008 05883 1 137.00 mg/dL 43239 008 97587 8 97.90 Tympanic 01112 008 73197 5 67.00 mm[Hg] - Sitting 124.00 /min 35708 008 17048 6 212.00 mg/dL 01988 008 51337 6 212.00 mg/dL 30984 008 27813 9 317.00 mg/dL 55911 008 20202 4 317.00 mg/dL 86838 008 54356 8 252.00 mg/dL 28014 008 26251 0 98.70 Tympanic 62086 008 71031 7 252.00 mg/dL 53424 008 65716 3 98.70 Tympanic 10728 009 82017 9 98.70 Tympanic 74473 009 06537 3 98.20 Tympanic 25591 009 64038 5 98.40 Tympanic 02086 009 94098 5 57.00 mm[Hg] - Sitting 129.00 mm[Hg] - Sitting 98.30 Tympanic 97.00 % 65.00/ min 18.00/min 83843 009 26840 1 255.00 mg/dL 41650 009 48683 4 255.00 mg/dL 69782 009 12508 5 98.20 Tympanic 46857 009 34430 0 255.00 mg/dL 24091 009 91069 0 98.20 Tympanic 00059 009 53935 4 63.00 mm[Hg] - Lying Down 102.00 mm[Hg] - Lying Down 58.00/ min 71046 009 69381 0 167.00 mg/dL 86674 009 28136 1 167.00 mg/dL 31314 009 53376 2 164.00 mg/dL 58140 009 22715 1 164.00 mg/dL 49693 009 17747 5 208.00 mg/dL 16393 010 02717 3 98.40 Tympanic 08491 010 05557 5 98.40 Tympanic 42490 010 82812 7 66 [place] [address] 010 64475 4 60.00 mm[Hg] - Sitting 143.00 mm[Hg] - Sitting 98.90 Tympanic 98.00 % 67.00/ min 18.00/min 85020 010 51042 2 214.00 mg/dL 75221 010 05908 0 214.00 mg/dL 81564 010 57963 7 214.00 mg/dL 38801 010 16740 6 64.00 mm[Hg] - Sitting 110.00 mm[Hg] - Sitting 72.00/ min 54250 010 99898 7 98.40 Tympanic 52765 010 08274 1 212.00 mg/dL 20679 010 98918 2 212.00 mg/dL 40401 010 62883 1 115.00 mg/dL 72858 010 75404 0 115.00 mg/dL 50522 010 86744 4 98.50 Tympanic 85914 010 58986 4 150.00 mg/dL 73154 010 63674 0 150.00 mg/dL 04267 011 90661 9 98.60 Tympanic 17414 011 62805 1 67.00 mm[Hg] - Sitting 144.00 mm[Hg] - Sitting 98.20 Tympanic 98.00 % 61.00/ min 18.00/min 83874 011 79691 7 290.00 mg/dL 77629 011 43180 2 290.00 mg/dL 42320 011 15830 2 290.00 mg/dL 42988 011 12114 7 54.00 mm[Hg] - Sitting 136.00 mm[Hg] - Sitting 101.00 /min 25408 011 05861 7 98.60 Tympanic 29667 011 08257 5 240.00 mg/dL 33763 011 02780 1 240.00 mg/dL 94071 011 15486 1 156.00 mg/dL 87849 011 61579 9 156.00 mg/dL 53369 011 53131 0 97.80 Tympanic 78964 011 22377 8 343.00 mg/dL 07456 012 32705 9 97.90 Tympanic 30396 012 71782 2 466.00 mg/dL 62564 012 62605 1 466.00 mg/dL 82907 012 35481 3 466.00 mg/dL 94275 012 23850 8 97.90 Tympanic 26671 012 31469 8 56.00 mm[Hg] - Sitting 96.00 mm[Hg] - Sitting 61.00/ min 18737 012 93080 7 350.00 mg/dL 48492 012 40214 5 350.00 mg/dL 04505 012 39939 6 111.00 mg/dL 00800 012 27878 0 111.00 mg/dL 36016 012 13444 5 98.40 Tympanic 59206 012 10265 6 114.00 mg/dL 30060 013 73478 4 74.00 mm[Hg] - Sitting 112.00 mm[Hg] - Sitting 98.40 Tympanic 70.00/ min 18.00/min 82013 013 72767 8 244.00 mg/dL 56441 013 57234 7 244.00 mg/dL 57714 013 29679 1 244.00 mg/dL 65397 013 12574 1 98.20 Tympanic 29276 013 26163 7 72.00 mm[Hg] - Sitting 119.00 mm[Hg] - Sitting 76.00/ min 72057 013 54002 7 253.00 mg/dL 64641 013 90545 4 253.00 mg/dL 95820 013 05959 9 156.00 mg/dL 40919 013 02250 5 156.00 mg/dL 95664 013 99654 4 97.90 Tympanic 91845 013 43837 5 189.00 mg/dL 89812 014 19814 9 98.10 Tympanic 89347 014 71768 0 61.00 mm[Hg] - Sitting 139.00 mm[Hg] - Sitting 98.20 Forehead Scan 99.00 % 66.00/ min 18.00/min 73560 014 17482 3 169.00 mg/dL 30355 014 48068 3 98.10 Tympanic 40958 014 00924 3 75.00 mm[Hg] - Sitting 121.00 mm[Hg] - Sitting 71.00/ min 89010 014 95040 9 221.00 mg/dL 17060 014 82853 9 62.00 mg/dL 84565 014 00916 5 62.00 mg/dL 12955 014 26274 8 156.00 mg/dL 11361 014 15759 6 98.10 Tympanic 42075 014 42393 7 156.00 mg/dL 12582 015 30917 4 68413 015 96671 7 62.00 mm[Hg] - Sitting 142.00 mm[Hg] - Sitting 98.20 Tympanic 99.00 % 67.00/ min 18.00/min 29198 015 98030 9 120.00 mg/dL 52579 015 95788 7 98.00 Tympanic 18209 015 40762 2 82.00 mm[Hg] - Sitting 119.00 /min 49963 015 75075 9 110.00 mg/dL 83903 015 10506 6 104.00 mg/dL 95502 015 36601 0 100.00 mg/dL 75438 015 47209 2 98.10 Tympanic 00033 015 18732 6 100.00 mg/dL 02365 016 16084 2 67.00 mm[Hg] - Sitting 147.00 mm[Hg] - Sitting 99.00 Tympanic 99.00 % 78.00/ min 20.00/min 27954 016 85057 5 158.00 mg/dL 05119 016 67027 1 158.00 mg/dL 62280 016 96743 2 158.00 mg/dL 67199 016 59717 0 66.00 mm[Hg] - Sitting 121.00 mm[Hg] - Sitting 74.00/ min 25630 016 20708 1 97.00 mg/dL 90613 016 23411 5 97.00 mg/dL 45935 016 18713 4 78.00 mg/dL 75867 016 81167 6 78.00 mg/dL 70413 016 37629 5 248.00 mg/dL 77490 016 18760 8 248.00 mg/dL 21019 017 87283 3 54.00 mm[Hg] - Sitting 142.00 mm[Hg] - Sitting 98.30 Tympanic 99.00 % 76.00/ min 18.00/min 73024 017 33758 4 267.00 mg/dL 51741 017 28653 6 73.00 mm[Hg] - Sitting 109.00 mm[Hg] - Sitting 70.00/ min 75476 017 31809 1 184.00 mg/dL 08772 017 67445 5 184.00 mg/dL 18737 017 26505 9 248.00 mg/dL 63446 017 00386 8 299.00 mg/dL 70397 017 69643 3 299.00 mg/dL 47188 018 14484 7 50.00 mm[Hg] - Sitting 125.00 mm[Hg] - Sitting 98.30 Tympanic 98.00 % 76.00/ min 16.00/min 63993 018 60701 3 168.00 mg/dL 85550 018 98481 0 75.00 mm[Hg] - Sitting 121.00 mm[Hg] - Sitting 70.00/ min 25996 018 55919 7 264.00 mg/dL 08625 018 25123 6 132.00 mg/dL 34483 018 55935 6 154.00 mg/dL 05771 018 81725 6 154.00 mg/dL 09444 019 57206 4 63.00 mm[Hg] - Sitting 147.00 mm[Hg] - Sitting 98.50 Tympanic 99.00 % 69.00/ min 18.00/min 82602 019 15431 9 159.00 mg/dL 95311 019 42893 8 73.00 mm[Hg] - Sitting 110.00 mm[Hg] - Sitting 72.00/ min 39055 019 68856 4 191.00 mg/dL 41477 019 65429 8 70.00 mg/dL 70989 019 05153 4 70.00 mg/dL 32069 019 83874 6 198.00 mg/dL 50280 019 69982 0 198.00 mg/dL 69555 020 38971 2 59.00 mm[Hg] - Sitting 131.00 mm[Hg] - Sitting 98.90 Tympanic 99.00 % 69.00/ min 18.00/min 93655 020 22425 7 299.00 mg/dL 18868 020 34999 0 62.00 mm[Hg] - Sitting 132.00 mm[Hg] - Sitting 68.00/ min 64501 020 35921 3 299.00 mg/dL 62876 020 81437 3 299.00 mg/dL 07889 020 56158 9 220.00 mg/dL 05752 020 57105 1 220.00 mg/dL 31165 020 58987 1 270.00 mg/dL 99943 020 15432 4 270.00 mg/dL 22083 020 40316 9 143.00 mg/dL 02575 020 39087 4 143.00 mg/dL 91220 021 37072 0 59.00 mm[Hg] - Sitting 121.00 mm[Hg] - Sitting 98.40 Forehead Scan 98.00 % 70.00/ min 16.00/min 23159 021 72614 0 140.00 mg/dL 60624 021 53997 0 67.00 mm[Hg] - Sitting 130.00 mm[Hg] - Sitting 68.00/ min 16186 021 60606 8 140.00 mg/dL 66448 021 95151 6 140.00 mg/dL 67142 021 27126 8 156.00 mg/dL 10877 021 07663 1 156.00 mg/dL 27694 021 45655 5 146.00 mg/dL 98826 021 32681 4 146.00 mg/dL 09321 021 15738 5 183.00 mg/dL 26125 021 35728 2 183.00 mg/dL 30139 022 70841 3 37532 022 03430 1 43.00 mm[Hg] - Sitting 113.00 mm[Hg] - Sitting 97.80 Tympanic 97.00 % 64.00/ min 18.00/min 12241 022 34055 6 270.00 mg/dL 54665 022 18811 5 68.00 mm[Hg] - Sitting 122.00 mm[Hg] - Sitting 67.00/ min 12214 022 57174 9 270.00 mg/dL 56753 022 04865 4 270.00 mg/dL 77492 022 02943 4 207.00 mg/dL 46993 022 15302 8 207.00 mg/dL 35404 022 98928 9 217.00 mg/dL 56407 022 60319 2 217.00 mg/dL 77559 022 67328 0 192.00 mg/dL 45436 022 90970 9 192.00 mg/dL 21270 023 46534 8 48.00 mm[Hg] - Sitting 116.00 mm[Hg] - Sitting 98.50 Tympanic 97.00 % 63.00/ min 18.00/min 20783 023 85682 9 68.00 mm[Hg] - Sitting 131.00 mm[Hg] - Sitting 68.00/ min 84721 023 92843 8 235.00 mg/dL 87314 023 88600 4 235.00 mg/dL 35353 023 83217 0 235.00 mg/dL 36320 023 70100 0 199.00 mg/dL 28916 023 80550 7 199.00 mg/dL 71634 023 18532 4 233.00 mg/dL 22428 023 73252 3 233.00 mg/dL 54693 023 20889 6 229.00 mg/dL 68594 023 80057 4 229.00 mg/dL 41089 024 74282 3 58.00 mm[Hg] - Sitting 102.00 mm[Hg] - Sitting 58.00/ min 24146 024 39606 9 156.00 mg/dL 85460 024 75903 4 156.00 mg/dL 08109 024 56621 3 156.00 mg/dL 62683 024 50147 0 343.00 mg/dL 50066 024 22564 6 343.00 mg/dL 03936 024 36805 2 167.00 mg/dL 36636 024 56720 0 167.00 mg/dL 80851 024 19678 8 155.00 mg/dL 73903 024 55463 7 155.00 mg/dL 54609 025 08477 0 51.00 mm[Hg] - Lying Down 109.00 mm[Hg] - Lying Down 98.60 Tympanic 95.00 % 67.00/ min 20.00/min 80625 025 62932 0 60.00 mm[Hg] - Sitting 118.00 mm[Hg] - Sitting 98.30 Forehead Scan 98.00 % 68.00/ min 16.00/min 29403 025 45038 3 235.00 mg/dL 78536 025 92206 1 63.00 mm[Hg] - Sitting 110.00 mm[Hg] - Sitting 75.00/ min 96570 025 62471 9 295.00 mg/dL 25098 025 51273 4 94.00 mg/dL 58957 025 66943 1 132.00 mg/dL 80297 025 39514 2 132.00 mg/dL 77906 026 19007 8 50.00 mm[Hg] - Sitting 123.00 mm[Hg] - Sitting 98.50 Tympanic 95.00 % 66.00/ min 18.00/min 99831 026 71665 0 275.00 mg/dL 91725 026 71061 7 275.00 mg/dL 49112 026 90457 1 275.00 mg/dL 91216 026 39375 6 67.00 mm[Hg] - Sitting 123.00 mm[Hg] - Sitting 66.00/ min 02023 026 96916 3 187.00 mg/dL 72683 026 67557 5 187.00 mg/dL 68592 026 88085 0 167.00 mg/dL 04058 026 02520 8 167.00 mg/dL 71003 026 24277 6 387.00 mg/dL 42930 027 39397 7 53.00 mm[Hg] - Sitting 132.00 mm[Hg] - Sitting 98.60 Tympanic 97.00 % 64.00/ min 18.00/min 98692 027 40151 9 189.00 mg/dL 94386 027 73895 4 67.00 mm[Hg] - Sitting 118.00 mm[Hg] - Sitting 66.00/ min 55512 027 31679 2 189.00 mg/dL 36217 027 07878 7 189.00 mg/dL 53530 027 53564 1 105.00 mg/dL 66659 027 22195 8 105.00 mg/dL 83649 027 73473 4 223.00 mg/dL 59996 027 67036 9 223.00 mg/dL 96288 027 85226 9 164.00 mg/dL 20360 028 23070 0 68.00 mm[Hg] - Sitting 115.00 mm[Hg] - Sitting 98.60 Forehead Scan 96.00 % 71.00/ min 16.00/min 11982 028 26612 1 200.00 mg/dL 34165 028 37959 9 200.00 mg/dL 23325 028 50347 1 69.00 mm[Hg] - Sitting 122.00 mm[Hg] - Sitting 67.00/ min 48949 028 59518 3 200.00 mg/dL 16236 028 33371 0 117.00 mg/dL 15951 028 14197 0 117.00 mg/dL 22285 028 73312 1 114.00 mg/dL 17576 028 30328 7 114.00 mg/dL 82330 028 44857 0 179.00 mg/dL 23624 028 21051 8 179.00 mg/dL 029 24039 9 147.00 mg/dL 029 03069 0 147.00 mg/dL 029 23339 4 147.00 mg/dL 029 99357 1 63.00 mm[Hg] - Sitting 118.00 mm[Hg] - Sitting 74.00/ min 029 42676 2 278.00 mg/dL 029 55381 3 278.00 mg/dL Immunizations Vaccine Date Status COVID-19 09/20/2023 Completed Influenza 09/14/2024 Completed Other 10/08/2023 Completed Shingles 05/27/2011 Completed Tetanus 04/13/2022 Completed TDaP 04/13/2022 Completed Shingles 2 10/05/2018 Completed
--- OUTSIDE RECORDS SUMMARY | 2024-10-03 10:57 | External Medical Summary | Continuity Of Care Document ---
Author Name Unknown Address [address] [address] Organization [facility] () Care Team Providers Care Supervisor [employer] Name Role Phone DO Machado Amy Primary Care Provider [phone] Allergies Allergy Reaction Start Date End Date [...] 3 0.1 mL 08/29 Inactiv e 2023 20693 87471 0 1 time Intrad ermal False Tubersol 5 tub. unit/0.1 mL intradermal injection solution [Tuberculin PPD] 0.1mL Intradermal 1 time For PPD 2nd Step Give 2nd Step PPD Day 1 and Read results Day 3 (schedule 7 days after 1st READ) 0.1mL 09/08 Inactiv e 2023 01272 08992 0 1 time Intrad ermal False [facility] - Nurse initials indicate verificatio n that [id number] vaccine was administere d by [facility] [...] order For Diabetes 08/25 Inactiv e 2023 27393 13340 9 4 times a day Subcut aneous False Aspirin 325 mg tablet [generic] 325 By Mouth Twice daily For Anticoagulati on 325 09/25 Active 2023 36677 82681 1 Twice daily By Mouth False Ferrous sulfate 325 mg (65 mg iron) tablet [generic] 325 By Mouth Once daily For anemia 325 2023 Active 2023 98602 01044 5 Once daily By Mouth False Linezolid 600 mg tablet [generic] 600 mg By Mouth Every 12 hours For MRSA INFECTION L BKA 600 mg 08/25 Inactiv e 2023 77051 03796 1 Every 12 hours By Mouth False Cefpodoxime 200 mg tablet [generic] 400 mg By Mouth Twice daily For MRSA INFECTION L BKA 400 mg 08/25 Inactiv e 2023 07673 10331 0 Twice daily By Mouth False Coenzyme Q10 100 mg tablet [generic] 100 mg By Mouth Once daily For SUPP 100 mg 2023 Active 2023 07306 29254 0 Once daily By Mouth False Levothyroxi ne 50 mcg tablet [generic] 50mcg By Mouth Once daily For hypothyroidis m 50mcg 2023 Active 2023 76429 99101 0 Once daily By Mouth False One A Day Men Complete 240 mcg-25 mcg-300 mcg tablet 1 tab By Mouth Once daily For supplement 1 tab 2023 Active 2023 15358 68201 1 Once daily By Mouth False Cholecalcif adalberto (vitamin D3) 50 mcg (2,000 unit) tablet [generic] 1 TAB By Mouth Once daily For SUPP 1 TAB 2023 Active 2023 36036 58838 1 Once daily By Mouth False Cetirizine 10 mg tablet [generic] 1 TAB By Mouth At bedtime For Allergies 1 TAB 2023 Active 2023 10459 42511 0 At bedtime By Mouth False Timolol maleate 0.25 % eye drops [generic] 1 drop Both Eyes Twice daily For glaucoma 1 drop 2023 Active 2023 04838 73746 5 Twice daily Both Eyes False Alendronate 35 mg tablet [generic] 35mg By Mouth Every week For SIADH 35mg 08/31 Inactiv e 2023 53071 85248 5 Every week By Mouth False Lantus Solostar U-100 Insulin 100 unit/mL (3 mL) subcutaneou s pen 18 units Subcutaneous Every morning For DIABETES 18 units 08/25 Inactiv e 2023 50915 33607 0 Every morning Subcut aneous False Lantus Solostar U-100 Insulin 100 unit/mL (3 mL) subcutaneou s pen 18 units Subcutaneous Every morning For DIABETES 18 units 2023 Active 2023 46004 55244 0 Every morning Subcut aneous False Linezolid 600 mg tablet [generic] 600 mg By Mouth Every 12 hours For MRSA INFECTION L BKA 600 mg 08/28 Inactiv e 2023 53794 29308 1 Every 12 hours By Mouth False [...] order For Diabetes 08/31 Inactiv e 2023 78965 62105 9 4 times a day Subcut aneous False Cefpodoxime 200 mg tablet [generic] 400 mg By Mouth Twice daily For MRSA INFECTION L BKA 400 mg 08/28 Inactiv e 2023 20595 32927 0 Twice daily By Mouth False Brimonidine 0.1 % eye drops [generic] 1 drop Both Eyes Twice daily For glaucoma 1 drop 2023 Active 2023 67169 55238 0 Twice daily Both Eyes False Metoprolol succinate ER 50 mg tablet,exte nded release 24 hr [generic] 50 mg By Mouth Once daily HOLD FOR SBP <100, or pulse <60 For HTN 50 mg 2023 Active 2023 08955 52368 1 Once daily By Mouth False Amlodipine 2.5 mg tablet [generic] 2.5 mg By Mouth Once daily For HTN 2.5 mg 2023 Active 2023 54147 50841 5 Once daily By Mouth False Docusate sodium 100 mg capsule [generic] 100mg By Mouth Twice daily as needed For constipation HOLD FOR LOOSE STOOLS 100mg 2023 Active 2023 92602 36087 1 Twice daily as needed By Mouth False Atorvastati n 40 mg tablet [generic] 40mg By Mouth Once daily For HDL 40mg 08/26 Inactiv e 2023 56254 87161 5 Once daily By Mouth False Tylenol 325 mg tablet 2 tabs By Mouth Every 4 hours as needed For Pain DO NOT EXCEED 3000 MG APAP/24 Hours 2 tabs 2023 Active 2023 93161 74320 0 Every 4 hours as needed By Mouth False Tylenol 325 mg tablet 2 tabs By Mouth Every 4 hours as needed For Fever >100 DO NOT EXCEED 3000 MG APAP/24 Hours 2 tabs 2023 Active 2023 73649 92305 0 Every 4 hours as needed By Mouth False Dulcolax (bisacodyl) 10 mg rectal suppository One Suppository per rectum PRN if Milk of Magnisia ineffective. Give on day 5 of no BM 1 sup 2023 Active 2023 17259 43679 1 Daily as needed Rectal False Fleet Enema 19 gram-7 gram/118 mL Administer per rectum PRN one time if dulcolax suppository not effective. Give on day 6 of no BM 1 2023 Active 2023 37485 55334 6 Daily as needed Rectal False Dextrose 50 % in water (D50W) intravenous solution [generic] Dextrose 50% evonne 20-50 ml (slow push) Intravenous if Glucagon not effective after 15 minutes. CALL 911 for ED Evaluation. 50% evonne 2023 Active 2023 80145 51109 9 Intrav enous False Glucagon (HCl) Emergency Kit 1 mg solution for injection Administer Glucagon 1 mg Intramuscular if 15 minutes after GLucose Gel is administered Glucose remains less than 70 1 mg 2023 Active 2023 52638 28144 2 Intram uscula r False Glucose Gel 40 % oral gel [Dextrose] PRN If resident is unable to swallow (with or without symptoms) and Glucose results less than 70 give GLucose 40% Gel 1 tube orally - Recheck Glucose 15 minutes after administratio n. 1 tube 2023 Active 2023 39948 56496 8 By Mouth False Milk of Magnesia 400 mg/5 mL oral suspension [Magnesium hydroxide] PRN 30ml By Mouth Daily as needed for constipation one time daily if no BM, on day 4 of no BM (PRN refer to instructions) For Constipation 30 mL 2023 Active 2023 05549 05906 6 Daily as needed By Mouth False Atorvastati n 40 mg tablet [generic] 08/26 Inactiv e 2023 08682 78262 5 Atorvastati n 40 mg tablet [generic] 40mg By Mouth Once daily For HDL 40mg 2023 Active 2023 62159 97735 5 Once daily By Mouth False Insulin aspart (U-100) 100 unit/mL (3 mL) subcutaneou s pen [generic] 15 units Subcutaneous 1 time For dm 15 units 08/26 Inactiv e 2023 53280 66499 5 1 time Subcut aneous False Humalog KwikPen (U-100) Insulin 100 unit/mL subcutaneou s 15 units Subcutaneous 1 time For dm 15 units 08/27 Inactiv e 2023 50831 12999 9 1 time Subcut aneous False Linezolid 600 mg tablet [generic] 600 mg By Mouth Every 12 hours For MRSA INFECTION L BKA 600 mg 09/06 Inactiv e 2023 64594 35960 1 Every 12 hours By Mouth False Cefpodoxime 200 mg tablet [generic] 400 mg By Mouth Twice daily For MRSA INFECTION L BKA 400 mg 08/31 Inactiv e 2023 47706 66121 0 Twice daily By Mouth False Senna 8.6 mg tablet 8.6 mg By Mouth Once daily For Constipation 8.6 mg 09/07 Inactiv e 2023 14775 94469 1 Once daily By Mouth False Humalog [...] abnormalities . Per Carb 2023 Active 2023 45459 83508 9 4 times a day Subcut aneous False Alendronate 35 mg tablet [generic] 08/31 Inactiv e 2023 31812 43029 5 Alendronate 35 mg tablet [generic] 35mg By Mouth Every week For Osteoporosis 35mg 202300 /0000 Active 2023 35874 90180 5 Every week By Mouth False ProSource 10 gram-100 kcal/30 mL oral liquid 30 ml By Mouth Once daily For wound healing 30 ml 2023 Active 2023 30023 08261 2 Once daily By Mouth False Problems Code Description Start Date End Date Status D64.9 Anemia, unspecified 08/25/2024 Activ e I25.10 Atherosclerotic hear t disease of [place] coronary artery without angina pectoris 08/25/2024 Active [...] Temperature SpO2 Blood Sugar Pulse Respirations 004 88578 8 67.00 mm[Hg] - Sitting 145.00 mm[Hg] - Sitting 98.50 Forehead Scan 96.00 % 81.00/ min 16.00/min 45471 004 16546 2 67.00 mm[Hg] - Sitting 145.00 mm[Hg] - Sitting 98.50 Tympanic 81.00/ min 16.00/min 58587 004 24039 5 56.00 mm[Hg] - Sitting 142.00 mm[Hg] - Sitting 136.40 NI 100.20 Tympanic 96.00 % 92.00/ min 18.00/min 80919 004 43425 6 11797 004 16197 4 143.00 mg/dL 80579 004 27175 0 97.80 Tympanic 47990 005 37476 7 60.00 mm[Hg] - Sitting 140.00 mm[Hg] - Sitting 98.00 Tympanic 84.00/ min 18.00/min 25384 005 38432 0 63.00 mm[Hg] - Sitting 141.00 mm[Hg] - Sitting 98.20 Tympanic 92.00 % 63.00/ min 16.00/min 66871 005 07320 8 69.00 mm[Hg] - Sitting 106.00 mm[Hg] - Sitting 97.20 Tympanic 24549 005 06529 7 69.00/ min 16.00/min 13594 005 16059 3 69.00 mm[Hg] - Sitting 106.00 mm[Hg] - Sitting 98.20 Tympanic 69.00/ min 16.00/min 49405 005 15981 1 367.00 mg/dL 42015 005 36899 2 97.20 Tympanic 44785 005 57363 4 97.20 Tympanic 84533 005 25576 0 69.00 mm[Hg] - Sitting 106.00 mm[Hg] - Sitting 69.00/ min 42057 005 52903 3 452.00 mg/dL 02650 005 54578 3 452.00 mg/dL 90237 005 98756 5 352.00 mg/dL 68062 005 87941 3 352.00 mg/dL 18051 005 11207 7 98.20 Tympanic 02814 005 3 101.00 mg/dL 62366 005 13514 8 101.00 mg/dL 09336 006 72149 4 66.00 mm[Hg] - Sitting 107.00 mm[Hg] - Sitting 98.00 Tympanic 66.00/ min 18.00/min 78628 006 45280 0 62.00 mm[Hg] - Sitting 162.00 mm[Hg] - Sitting 98.20 Tympanic 96.00 % 60.00/ min 16.00/min 56618 006 15434 4 62.00 mm[Hg] - Sitting 162.00 mm[Hg] - Sitting 98.00 Tympanic 70.00/ min 18.00/min 51712 006 31795 8 62.00 mm[Hg] - Sitting 162.00 mm[Hg] - Sitting 98.20 Tympanic 70.00/ min 18.00/min 67145 006 48720 2 66.00 mm[Hg] - Sitting 132.00 mm[Hg] - Sitting 98.60 Tympanic 74.00/ min 16.00/min 42634 006 15974 5 159.00 mg/dL 61894 006 17469 1 159.00 mg/dL 81383 006 54769 8 98.00 Tympanic 28895 006 55023 2 62.00 mm[Hg] - Sitting 162.00 mm[Hg] - Sitting 70.00/ min 19795 006 65348 7 264.00 mg/dL 80506 006 62616 7 264.00 mg/dL 57582 006 47336 4 196.00 mg/dL 94841 006 75697 3 98.20 Tympanic 97019 006 04108 6 271.00 mg/dL 75055 007 90767 3 97.20 Tympanic 02680 007 76788 2 63.00 mm[Hg] - Sitting 132.00 mm[Hg] - Sitting 98.50 Tympanic 94.00 % 66.00/ min 16.00/min 27046 007 68591 5 188.00 mg/dL 48601 007 24373 2 188.00 mg/dL 09691 007 57818 2 188.00 mg/dL 49590 007 37984 7 97.20 Tympanic 61966 007 05101 6 97.20 Tympanic 54341 007 08012 5 67.00 mm[Hg] - Sitting 152.00 mm[Hg] - Sitting 68.00/ min 53078 007 78677 0 141.00 mg/dL 11523 007 18822 3 141.00 mg/dL 93204 007 53325 1 366.00 mg/dL 18020 007 74569 7 366.00 mg/dL 90696 007 68760 7 98.00 Tympanic 19022 007 14017 6 324.00 mg/dL 55655 007 83867 3 98.00 Tympanic 20386 007 49037 7 324.00 mg/dL 84734 008 66973 0 98.00 Tympanic 29817 008 77419 2 97.90 Tympanic 32436 008 64030 0 98.20 Tympanic 05273 008 50566 0 73.00 mm[Hg] - Sitting 156.00 mm[Hg] - Sitting 98.60 Tympanic 99.00 % 66.00/ min 20.00/min 51227 008 98587 5 137.00 mg/dL 86094 008 80479 7 137.00 mg/dL 30749 008 95698 2 97.90 Tympanic 93354 008 23778 1 137.00 mg/dL 59528 008 70671 8 97.90 Tympanic 91500 008 00968 5 67.00 mm[Hg] - Sitting 124.00 /min 11717 008 73048 6 212.00 mg/dL 50261 008 51169 6 212.00 mg/dL 34235 008 23115 9 317.00 mg/dL 59384 008 32772 4 317.00 mg/dL 59184 008 21823 8 252.00 mg/dL 07317 008 24530 0 98.70 Tympanic 53132 008 72832 7 252.00 mg/dL 03655 008 89569 3 98.70 Tympanic 35730 009 02141 9 98.70 Tympanic 78103 009 94194 3 98.20 Tympanic 03206 009 49575 5 98.40 Tympanic 80013 009 71984 5 57.00 mm[Hg] - Sitting 129.00 mm[Hg] - Sitting 98.30 Tympanic 97.00 % 65.00/ min 18.00/min 63416 009 65223 1 255.00 mg/dL 92480 009 26852 4 255.00 mg/dL 52625 009 00897 5 98.20 Tympanic 39778 009 45523 0 255.00 mg/dL 14504 009 08047 0 98.20 Tympanic 17975 009 20603 4 63.00 mm[Hg] - Lying Down 102.00 mm[Hg] - Lying Down 58.00/ min 71663 009 96014 0 167.00 mg/dL 92812 009 11283 1 167.00 mg/dL 21427 009 31525 2 164.00 mg/dL 46182 009 65330 1 164.00 mg/dL 00665 009 02543 5 208.00 mg/dL 91662 010 80725 3 98.40 Tympanic 50983 010 43040 5 98.40 Tympanic 97881 010 36479 7 66 [place] [address] 010 81776 4 60.00 mm[Hg] - Sitting 143.00 mm[Hg] - Sitting 98.90 Tympanic 98.00 % 67.00/ min 18.00/min 02101 010 84602 2 214.00 mg/dL 15690 010 93354 0 214.00 mg/dL 34043 010 03176 7 214.00 mg/dL 74224 010 42803 6 64.00 mm[Hg] - Sitting 110.00 mm[Hg] - Sitting 72.00/ min 34546 010 19674 7 98.40 Tympanic 46981 010 96294 1 212.00 mg/dL 57299 010 04004 2 212.00 mg/dL 53157 010 44797 1 115.00 mg/dL 39117 010 64175 0 115.00 mg/dL 95956 010 47666 4 98.50 Tympanic 89011 010 45327 4 150.00 mg/dL 72231 010 68175 0 150.00 mg/dL 93683 011 17222 9 98.60 Tympanic 17957 011 76399 1 67.00 mm[Hg] - Sitting 144.00 mm[Hg] - Sitting 98.20 Tympanic 98.00 % 61.00/ min 18.00/min 74134 011 07094 7 290.00 mg/dL 53191 011 86418 2 290.00 mg/dL 29454 011 70543 2 290.00 mg/dL 05820 011 75230 7 54.00 mm[Hg] - Sitting 136.00 mm[Hg] - Sitting 101.00 /min 59484 011 74787 7 98.60 Tympanic 42018 011 79615 5 240.00 mg/dL 57255 011 55544 1 240.00 mg/dL 13888 011 59881 1 156.00 mg/dL 81214 011 81991 9 156.00 mg/dL 31752 011 76457 0 97.80 Tympanic 08693 011 21951 8 343.00 mg/dL 56032 012 97776 9 97.90 Tympanic 31169 012 95963 2 466.00 mg/dL 61305 012 24723 1 466.00 mg/dL 31727 012 27835 3 466.00 mg/dL 69311 012 46047 8 97.90 Tympanic 43404 012 27936 8 56.00 mm[Hg] - Sitting 96.00 mm[Hg] - Sitting 61.00/ min 37322 012 15943 7 350.00 mg/dL 42653 012 54953 5 350.00 mg/dL 83626 012 46894 6 111.00 mg/dL 58477 012 29226 0 111.00 mg/dL 81817 012 41699 5 98.40 Tympanic 66695 012 28294 6 114.00 mg/dL 75540 013 23633 4 74.00 mm[Hg] - Sitting 112.00 mm[Hg] - Sitting 98.40 Tympanic 70.00/ min 18.00/min 04289 013 07917 8 244.00 mg/dL 38051 013 01437 7 244.00 mg/dL 02764 013 30851 1 244.00 mg/dL 21694 013 04486 1 98.20 Tympanic 73144 013 90134 7 72.00 mm[Hg] - Sitting 119.00 mm[Hg] - Sitting 76.00/ min 37262 013 86819 7 253.00 mg/dL 34455 013 97890 4 253.00 mg/dL 59845 013 37146 9 156.00 mg/dL 47929 013 67110 5 156.00 mg/dL 41749 013 34521 4 97.90 Tympanic 84322 013 33366 5 189.00 mg/dL 02513 014 43742 9 98.10 Tympanic 80883 014 30212 0 61.00 mm[Hg] - Sitting 139.00 mm[Hg] - Sitting 98.20 Forehead Scan 99.00 % 66.00/ min 18.00/min 73648 014 74239 3 169.00 mg/dL 19295 014 73008 3 98.10 Tympanic 63907 014 32912 3 75.00 mm[Hg] - Sitting 121.00 mm[Hg] - Sitting 71.00/ min 58945 014 01948 9 221.00 mg/dL 26806 014 30643 9 62.00 mg/dL 45883 014 45221 5 62.00 mg/dL 51748 014 01264 8 156.00 mg/dL 79244 014 07083 6 98.10 Tympanic 12748 014 50105 7 156.00 mg/dL 98038 015 21052 4 89657 015 49118 7 62.00 mm[Hg] - Sitting 142.00 mm[Hg] - Sitting 98.20 Tympanic 99.00 % 67.00/ min 18.00/min 28060 015 25886 9 120.00 mg/dL 87430 015 88202 7 98.00 Tympanic 50098 015 75045 2 82.00 mm[Hg] - Sitting 119.00 /min 11445 015 52497 9 110.00 mg/dL 53029 015 18508 6 104.00 mg/dL 22765 015 40512 0 100.00 mg/dL 50004 015 66837 2 98.10 Tympanic 70254 015 54681 6 100.00 mg/dL 46301 016 95117 2 67.00 mm[Hg] - Sitting 147.00 mm[Hg] - Sitting 99.00 Tympanic 99.00 % 78.00/ min 20.00/min 15697 016 85679 5 158.00 mg/dL 31216 016 38805 1 158.00 mg/dL 78981 016 45493 2 158.00 mg/dL 46757 016 18787 0 66.00 mm[Hg] - Sitting 121.00 mm[Hg] - Sitting 74.00/ min 47236 016 23588 1 97.00 mg/dL 06173 016 49710 5 97.00 mg/dL 94963 016 10499 4 78.00 mg/dL 79614 016 77218 6 78.00 mg/dL 43775 016 79764 5 248.00 mg/dL 78393 016 38483 8 248.00 mg/dL 67796 017 76806 3 54.00 mm[Hg] - Sitting 142.00 mm[Hg] - Sitting 98.30 Tympanic 99.00 % 76.00/ min 18.00/min 54350 017 79539 4 267.00 mg/dL 35226 017 27839 6 73.00 mm[Hg] - Sitting 109.00 mm[Hg] - Sitting 70.00/ min 70898 017 39052 1 184.00 mg/dL 60513 017 17968 5 184.00 mg/dL 53737 017 30975 9 248.00 mg/dL 87742 017 54604 8 299.00 mg/dL 46732 017 67392 3 299.00 mg/dL 15774 018 13604 7 50.00 mm[Hg] - Sitting 125.00 mm[Hg] - Sitting 98.30 Tympanic 98.00 % 76.00/ min 16.00/min 72561 018 23937 3 168.00 mg/dL 99330 018 14777 0 75.00 mm[Hg] - Sitting 121.00 mm[Hg] - Sitting 70.00/ min 52386 018 58699 7 264.00 mg/dL 49291 018 14846 6 132.00 mg/dL 63865 018 86128 6 154.00 mg/dL 84819 018 46270 6 154.00 mg/dL 10280 019 80049 4 63.00 mm[Hg] - Sitting 147.00 mm[Hg] - Sitting 98.50 Tympanic 99.00 % 69.00/ min 18.00/min 35877 019 61382 9 159.00 mg/dL 18371 019 61886 8 73.00 mm[Hg] - Sitting 110.00 mm[Hg] - Sitting 72.00/ min 53259 019 18303 4 191.00 mg/dL 59843 019 12865 8 70.00 mg/dL 09431 019 19421 4 70.00 mg/dL 03557 019 71419 6 198.00 mg/dL 57406 019 61985 0 198.00 mg/dL 00980 020 12009 2 59.00 mm[Hg] - Sitting 131.00 mm[Hg] - Sitting 98.90 Tympanic 99.00 % 69.00/ min 18.00/min 76527 020 27909 7 299.00 mg/dL 79758 020 87145 0 62.00 mm[Hg] - Sitting 132.00 mm[Hg] - Sitting 68.00/ min 37449 020 88079 3 299.00 mg/dL 68981 020 79821 3 299.00 mg/dL 50317 020 41444 9 220.00 mg/dL 30958 020 20874 1 220.00 mg/dL 05853 020 64856 1 270.00 mg/dL 02162 020 51577 4 270.00 mg/dL 63241 020 48013 9 143.00 mg/dL 05225 020 99018 4 143.00 mg/dL 23577 021 30990 0 59.00 mm[Hg] - Sitting 121.00 mm[Hg] - Sitting 98.40 Forehead Scan 98.00 % 70.00/ min 16.00/min 99073 021 86944 0 140.00 mg/dL 18011 021 66797 0 67.00 mm[Hg] - Sitting 130.00 mm[Hg] - Sitting 68.00/ min 59422 021 82049 8 140.00 mg/dL 36404 021 36486 6 140.00 mg/dL 27000 021 38249 8 156.00 mg/dL 13296 021 19828 1 156.00 mg/dL 24794 021 56695 5 146.00 mg/dL 84382 021 68008 4 146.00 mg/dL 69705 021 01320 5 183.00 mg/dL 43178 021 16166 2 183.00 mg/dL 86375 022 32897 3 70367 022 12106 1 43.00 mm[Hg] - Sitting 113.00 mm[Hg] - Sitting 97.80 Tympanic 97.00 % 64.00/ min 18.00/min 06553 022 39301 6 270.00 mg/dL 84419 022 19232 5 68.00 mm[Hg] - Sitting 122.00 mm[Hg] - Sitting 67.00/ min 71304 022 55594 9 270.00 mg/dL 82897 022 58296 4 270.00 mg/dL 11577 022 66528 4 207.00 mg/dL 44824 022 33364 8 207.00 mg/dL 31692 022 12214 9 217.00 mg/dL 72139 022 99441 2 217.00 mg/dL 12178 022 18484 0 192.00 mg/dL 22457 022 21546 9 192.00 mg/dL 33541 023 99439 8 48.00 mm[Hg] - Sitting 116.00 mm[Hg] - Sitting 98.50 Tympanic 97.00 % 63.00/ min 18.00/min 77768 023 11168 9 68.00 mm[Hg] - Sitting 131.00 mm[Hg] - Sitting 68.00/ min 20548 023 56720 8 235.00 mg/dL 28344 023 11757 4 235.00 mg/dL 17952 023 24566 0 235.00 mg/dL 84578 023 49062 0 199.00 mg/dL 31198 023 28567 7 199.00 mg/dL 21760 023 40899 4 233.00 mg/dL 72520 023 25210 3 233.00 mg/dL 58799 023 11503 6 229.00 mg/dL 31564 023 73048 4 229.00 mg/dL 01775 024 42073 3 58.00 mm[Hg] - Sitting 102.00 mm[Hg] - Sitting 58.00/ min 84293 024 09815 9 156.00 mg/dL 55153 024 30984 4 156.00 mg/dL 33551 024 65937 3 156.00 mg/dL 45783 024 31502 0 343.00 mg/dL 84286 024 58137 6 343.00 mg/dL 71547 024 07338 2 167.00 mg/dL 18374 024 44170 0 167.00 mg/dL 38475 024 89595 8 155.00 mg/dL 29361 024 07361 7 155.00 mg/dL 47588 025 90053 0 51.00 mm[Hg] - Lying Down 109.00 mm[Hg] - Lying Down 98.60 Tympanic 95.00 % 67.00/ min 20.00/min 42912 025 78134 0 60.00 mm[Hg] - Sitting 118.00 mm[Hg] - Sitting 98.30 Forehead Scan 98.00 % 68.00/ min 16.00/min 77947 025 97621 3 235.00 mg/dL 01032 025 93686 1 63.00 mm[Hg] - Sitting 110.00 mm[Hg] - Sitting 75.00/ min 04231 025 91304 9 295.00 mg/dL 90734 025 05877 4 94.00 mg/dL 36118 025 15875 1 132.00 mg/dL 52617 025 94368 2 132.00 mg/dL 71003 026 29625 8 50.00 mm[Hg] - Sitting 123.00 mm[Hg] - Sitting 98.50 Tympanic 95.00 % 66.00/ min 18.00/min 47181 026 48875 0 275.00 mg/dL 88794 026 87633 7 275.00 mg/dL 06890 026 15063 1 275.00 mg/dL 51520 026 38247 6 67.00 mm[Hg] - Sitting 123.00 mm[Hg] - Sitting 66.00/ min 58253 026 56057 3 187.00 mg/dL 76213 026 25463 5 187.00 mg/dL 58722 026 10723 0 167.00 mg/dL 21353 026 37815 8 167.00 mg/dL 11930 026 25627 6 387.00 mg/dL 37978 027 03146 7 53.00 mm[Hg] - Sitting 132.00 mm[Hg] - Sitting 98.60 Tympanic 97.00 % 64.00/ min 18.00/min 93779 027 32444 9 189.00 mg/dL 31939 027 18012 4 67.00 mm[Hg] - Sitting 118.00 mm[Hg] - Sitting 66.00/ min 76014 027 82228 2 189.00 mg/dL 91572 027 42080 7 189.00 mg/dL 30812 027 71859 1 105.00 mg/dL 68741 027 56557 8 105.00 mg/dL 20154 027 66431 4 223.00 mg/dL 21932 027 44386 9 223.00 mg/dL 51219 027 23014 9 164.00 mg/dL 35152 028 69754 1 200.00 mg/dL 77772 028 64728 9 200.00 mg/dL 16438 028 28330 1 69.00 mm[Hg] - Sitting 122.00 mm[Hg] - Sitting 67.00/ min 40018 028 94013 3 200.00 mg/dL 81172 028 36713 0 117.00 mg/dL 11689 028 45858 0 117.00 mg/dL 80111 028 58516 1 114.00 mg/dL 64864 028 88379 7 114.00 mg/dL 09194 028 05802 0 179.00 mg/dL 70575 028 05701 8 179.00 mg/dL Immunizations Vaccine Date Status COVID-19 09/20/2023 Completed Influenza 09/14/2024 Completed Other 10/08/2023 Completed Shingles 05/27/2011 Completed Tetanus 04/13/2022 Completed TDaP 04/13/2022 Completed Shingles 2 10/05/2018 Completed
--- OUTSIDE RECORDS SUMMARY | 2024-10-03 10:57 | External Medical Summary | Continuity Of Care Document ---
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 unit/0.1 mL intradermal injection solution [Tuberculin PPD] 0.1mL Intradermal 1 time For PPD 2nd Step Give 2nd Step PPD Day 1 and Read results Day 3 (schedule 7 days after 1st READ) 0.1mL 09/08 Inactiv e 2023 27377 41704 0 1 time Intrad ermal False [facility] - Nurse initials indicate verificatio n that [id number] vaccine was administere d by [facility] [...] order For Diabetes 08/25 Inactiv e 2023 34918 59597 9 4 times a day Subcut aneous False Aspirin 325 mg tablet [generic] 325 By Mouth Twice daily For Anticoagulati on 325 09/25 Active 2023 47710 46887 1 Twice daily By Mouth False Ferrous sulfate 325 mg (65 mg iron) tablet [generic] 325 By Mouth Once daily For anemia 325 2023 Active 2023 24989 65567 5 Once daily By Mouth False Linezolid 600 mg tablet [generic] 600 mg By Mouth Every 12 hours For MRSA INFECTION L BKA 600 mg 08/25 Inactiv e 2023 39554 49971 1 Every 12 hours By Mouth False Cefpodoxime 200 mg tablet [generic] 400 mg By Mouth Twice daily For MRSA INFECTION L BKA 400 mg 08/25 Inactiv e 2023 15447 05034 0 Twice daily By Mouth False Coenzyme Q10 100 mg tablet [generic] 100 mg By Mouth Once daily For SUPP 100 mg 2023 Active 2023 47863 99234 0 Once daily By Mouth False Levothyroxi ne 50 mcg tablet [generic] 50mcg By Mouth Once daily For hypothyroidis m 50mcg 2023 Active 2023 66909 52859 0 Once daily By Mouth False One A Day Men Complete 240 mcg-25 mcg-300 mcg tablet 1 tab By Mouth Once daily For supplement 1 tab 2023 Active 2023 21370 70864 1 Once daily By Mouth False Cholecalcif adalberto (vitamin D3) 50 mcg (2,000 unit) tablet [generic] 1 TAB By Mouth Once daily For SUPP 1 TAB 2023 Active 2023 74968 45317 1 Once daily By Mouth False Cetirizine 10 mg tablet [generic] 1 TAB By Mouth At bedtime For Allergies 1 TAB 2023 Active 2023 80170 45362 0 At bedtime By Mouth False Timolol maleate 0.25 % eye drops [generic] 1 drop Both Eyes Twice daily For glaucoma 1 drop 2023 Active 2023 39526 47523 5 Twice daily Both Eyes False Alendronate 35 mg tablet [generic] 35mg By Mouth Every week For SIADH 35mg 08/31 Inactiv e 2023 06191 06664 5 Every week By Mouth False Lantus Solostar U-100 Insulin 100 unit/mL (3 mL) subcutaneou s pen 18 units Subcutaneous Every morning For DIABETES 18 units 08/25 Inactiv e 2023 63055 48560 0 Every morning Subcut aneous False Lantus Solostar U-100 Insulin 100 unit/mL (3 mL) subcutaneou s pen 18 units Subcutaneous Every morning For DIABETES 18 units 2023 Active 2023 85362 56738 0 Every morning Subcut aneous False Linezolid 600 mg tablet [generic] 600 mg By Mouth Every 12 hours For MRSA INFECTION L BKA 600 mg 08/28 Inactiv e 2023 07262 78614 1 Every 12 hours By Mouth False [...] order For Diabetes 08/31 Inactiv e 2023 16366 98384 9 4 times a day Subcut aneous False Cefpodoxime 200 mg tablet [generic] 400 mg By Mouth Twice daily For MRSA INFECTION L BKA 400 mg 08/28 Inactiv e 2023 33981 90663 0 Twice daily By Mouth False Brimonidine 0.1 % eye drops [generic] 1 drop Both Eyes Twice daily For glaucoma 1 drop 2023 Active 2023 54151 42730 0 Twice daily Both Eyes False Metoprolol succinate ER 50 mg tablet,exte nded release 24 hr [generic] 50 mg By Mouth Once daily HOLD FOR SBP <100, or pulse <60 For HTN 50 mg 2023 Active 2023 88710 55980 1 Once daily By Mouth False Amlodipine 2.5 mg tablet [generic] 2.5 mg By Mouth Once daily For HTN 2.5 mg 2023 Active 2023 69658 99349 5 Once daily By Mouth False Docusate sodium 100 mg capsule [generic] 100mg By Mouth Twice daily as needed For constipation HOLD FOR LOOSE STOOLS 100mg 2023 Active 2023 22804 81874 1 Twice daily as needed By Mouth False Atorvastati n 40 mg tablet [generic] 40mg By Mouth Once daily For HDL 40mg 08/26 Inactiv e 2023 68401 95803 5 Once daily By Mouth False Tylenol 325 mg tablet 2 tabs By Mouth Every 4 hours as needed For Pain DO NOT EXCEED 3000 MG APAP/24 Hours 2 tabs 2023 Active 2023 11184 94133 0 Every 4 hours as needed By Mouth False Tylenol 325 mg tablet 2 tabs By Mouth Every 4 hours as needed For Fever >100 DO NOT EXCEED 3000 MG APAP/24 Hours 2 tabs 2023 Active 2023 44206 02777 0 Every 4 hours as needed By Mouth False Dulcolax (bisacodyl) 10 mg rectal suppository One Suppository per rectum PRN if Milk of Magnisia ineffective. Give on day 5 of no BM 1 sup 2023 Active 2023 86466 19318 1 Daily as needed Rectal False Fleet Enema 19 gram-7 gram/118 mL Administer per rectum PRN one time if dulcolax suppository not effective. Give on day 6 of no BM 1 2023 Active 2023 68151 20432 6 Daily as needed Rectal False Dextrose 50 % in water (D50W) intravenous solution [generic] Dextrose 50% evonne 20-50 ml (slow push) Intravenous if Glucagon not effective after 15 minutes. CALL 911 for ED Evaluation. 50% evonne 2023 Active 2023 63793 06017 9 Intrav enous False Glucagon (HCl) Emergency Kit 1 mg solution for injection Administer Glucagon 1 mg Intramuscular if 15 minutes after GLucose Gel is administered Glucose remains less than 70 1 mg 2023 Active 2023 37373 14331 2 Intram uscula r False Glucose Gel 40 % oral gel [Dextrose] PRN If resident is unable to swallow (with or without symptoms) and Glucose results less than 70 give GLucose 40% Gel 1 tube orally - Recheck Glucose 15 minutes after administratio n. 1 tube 2023 Active 2023 42692 32395 8 By Mouth False Milk of Magnesia 400 mg/5 mL oral suspension [Magnesium hydroxide] PRN 30ml By Mouth Daily as needed for constipation one time daily if no BM, on day 4 of no BM (PRN refer to instructions) For Constipation 30 mL 2023 Active 2023 35197 23033 6 Daily as needed By Mouth False Atorvastati n 40 mg tablet [generic] 08/26 Inactiv e 2023 60579 41048 5 Atorvastati n 40 mg tablet [generic] 40mg By Mouth Once daily For HDL 40mg 2023 Active 2023 35931 95204 5 Once daily By Mouth False Insulin aspart (U-100) 100 unit/mL (3 mL) subcutaneou s pen [generic] 15 units Subcutaneous 1 time For dm 15 units 08/26 Inactiv e 2023 24866 97063 5 1 time Subcut aneous False Humalog KwikPen (U-100) Insulin 100 unit/mL subcutaneou s 15 units Subcutaneous 1 time For dm 15 units 08/27 Inactiv e 2023 90686 08991 9 1 time Subcut aneous False Linezolid 600 mg tablet [generic] 600 mg By Mouth Every 12 hours For MRSA INFECTION L BKA 600 mg 09/06 Inactiv e 2023 13625 51118 1 Every 12 hours By Mouth False Cefpodoxime 200 mg tablet [generic] 400 mg By Mouth Twice daily For MRSA INFECTION L BKA 400 mg 08/31 Inactiv e 2023 86015 95430 0 Twice daily By Mouth False Senna 8.6 mg tablet 8.6 mg By Mouth Once daily For Constipation 8.6 mg 09/07 Inactiv e 2023 40712 34692 1 Once daily By Mouth False Humalog [...] abnormalities . Per Carb 2023 Active 2023 28161 87832 9 4 times a day Subcut aneous False Alendronate 35 mg tablet [generic] 08/31 Inactiv e 2023 74925 87945 5 Alendronate 35 mg tablet [generic] 35mg By Mouth Every week For Osteoporosis 35mg 202300 /0000 Active 2023 05969 24264 5 Every week By Mouth False ProSource 10 gram-100 kcal/30 mL oral liquid 30 ml By Mouth Once daily For wound healing 30 ml 2023 Active 2023 49656 47184 2 Once daily By Mouth False Clotrimazol e 1 % topical cream [generic] 1 applicaiton Topical Twice daily For tinea, apply to groin rash after cleansing and throughouly drying. Can discontinue order 3 days after rash resolves. 1 applica stacy 09/08 Inactiv e 2023 68718 89571 0 Twice daily Topica l False MAGIC MIX 1:1:1:1 : ZINC OXIDE EXTERNAL OINTMENT 40%; HYDROCOTISO NE EXTERNAL CREAM 1%; NYSTATIN EXTERNAL CREAM 555166H/GM; SILVADENE CREAM 1% Every shift Apply topically to MASD area on coccyx/buttoc ks each shift and as needed for incontinence care For MASD on coccyx layer 2023 Active 2023 Every shift Topica l False Senna 8.6 mg tablet 8.6 mg By Mouth Once daily For Constipation 8.6 mg 09/07 Inactiv e 2023 55192 60738 1 Once daily By Mouth False Senna 8.6 mg tablet 8.6 mg By Mouth Once daily As Needed For Constipation 8.6 mg 2023 Active 2023 85412 39769 1 Once daily By Mouth False BD AutoShield Duo Pen Needle 30 gauge x 3/16in 1 pen needle Subcutaneous 4 times a day For DM 1 pen needle 2023 Active 2023 58287 97162 5 4 times a day Subcut aneous False Problems Code Description Start Date End Date Status D64.9 Anemia, unspecified 08/25/2024 Activ e I25.10 Atherosclerotic hear t disease of [place] coronary artery without angina pectoris 08/25/2024 Active [...] weight Temperature SpO2 Blood Sugar Pulse Respirations 38012 8 67.00 mm[Hg] - Sitting 145.00 mm[Hg] - Sitting 98.50 Forehead Scan 96.00 % 81.00/ min 16.00/min 36627 2 67.00 mm[Hg] - Sitting 145.00 mm[Hg] - Sitting 98.50 Tympanic 81.00/ min 16.00/min 62915 5 56.00 mm[Hg] - Sitting 142.00 mm[Hg] - Sitting 136.40 NI 100.20 Tympanic 96.00 % 92.00/ min 18.00/min 21505 004 17352 6 21360 004 04608 4 143.00 mg/dL 51228 004 20393 0 97.80 Tympanic 54290 005 45236 7 60.00 mm[Hg] - Sitting 140.00 mm[Hg] - Sitting 98.00 Tympanic 84.00/ min 18.00/min 40085 005 22244 0 63.00 mm[Hg] - Sitting 141.00 mm[Hg] - Sitting 98.20 Tympanic 92.00 % 63.00/ min 16.00/min 86405 005 19080 8 69.00 mm[Hg] - Sitting 106.00 mm[Hg] - Sitting 97.20 Tympanic 65733 005 82596 7 69.00/ min 16.00/min 18597 005 15904 3 69.00 mm[Hg] - Sitting 106.00 mm[Hg] - Sitting 98.20 Tympanic 69.00/ min 16.00/min 03903 005 91698 1 367.00 mg/dL 89366 005 40233 2 97.20 Tympanic 15406 005 00169 4 97.20 Tympanic 99593 005 92844 0 69.00 mm[Hg] - Sitting 106.00 mm[Hg] - Sitting 69.00/ min 01656 005 00268 3 452.00 mg/dL 30480 005 46076 3 452.00 mg/dL 83262 005 74170 5 352.00 mg/dL 48510 005 10568 3 352.00 mg/dL 00092 005 44497 7 98.20 Tympanic 86004 005 3 101.00 mg/dL 94432 005 69315 8 101.00 mg/dL 01839 006 33350 4 66.00 mm[Hg] - Sitting 107.00 mm[Hg] - Sitting 98.00 Tympanic 66.00/ min 18.00/min 22562 006 77553 0 62.00 mm[Hg] - Sitting 162.00 mm[Hg] - Sitting 98.20 Tympanic 96.00 % 60.00/ min 16.00/min 54110 006 78855 4 62.00 mm[Hg] - Sitting 162.00 mm[Hg] - Sitting 98.00 Tympanic 70.00/ min 18.00/min 81416 006 27586 8 62.00 mm[Hg] - Sitting 162.00 mm[Hg] - Sitting 98.20 Tympanic 70.00/ min 18.00/min 74531 006 97973 2 66.00 mm[Hg] - Sitting 132.00 mm[Hg] - Sitting 98.60 Tympanic 74.00/ min 16.00/min 21692 006 15814 5 159.00 mg/dL 73388 006 13419 1 159.00 mg/dL 70484 006 62101 8 98.00 Tympanic 92638 006 07535 2 62.00 mm[Hg] - Sitting 162.00 mm[Hg] - Sitting 70.00/ min 53659 006 54337 7 264.00 mg/dL 37851 006 43477 7 264.00 mg/dL 24824 006 69649 4 196.00 mg/dL 63183 006 79046 3 98.20 Tympanic Immunizations Vaccine Date Status COVID-19 09/20/2023 Completed Influenza 09/14/2024 Completed Other 10/08/2023 Completed Shingles 05/27/2011 Completed Tetanus 04/13/2022 Completed TDaP 04/13/2022 Completed Shingles 2 10/05/2018 Completed
--- OUTSIDE RECORDS SUMMARY | 2024-10-03 10:57 | External Medical Summary | Continuity Of Care Document ---
Author Name Unknown Address [address] [address] Organization [facility] () Care Team Providers Care Qual Field Manager Name Role Phone DO Machado Amy Primary Care Provider [phone] Allergies Allergy Reaction Start Date End Date [...] 3 0.1 mL 08/29 Inactiv e 2023 59365 84673 0 1 time Intrad ermal False Tubersol 5 tub. unit/0.1 mL intradermal injection solution [Tuberculin PPD] 0.1mL Intradermal 1 time For PPD 2nd Step Give 2nd Step PPD Day 1 and Read results Day 3 (schedule 7 days after 1st READ) 0.1mL 09/08 Inactiv e 2023 64862 74818 0 1 time Intrad ermal False [facility] - Nurse initials indicate verificatio n that [id number] vaccine was administere d by [facility] [...] order For Diabetes 08/25 Inactiv e 2023 50042 79629 9 4 times a day Subcut aneous False Aspirin 325 mg tablet [generic] 325 By Mouth Twice daily For Anticoagulati on 325 09/25 Active 2023 98611 77102 1 Twice daily By Mouth False Ferrous sulfate 325 mg (65 mg iron) tablet [generic] 325 By Mouth Once daily For anemia 325 2023 Active 2023 84716 21573 5 Once daily By Mouth False Linezolid 600 mg tablet [generic] 600 mg By Mouth Every 12 hours For MRSA INFECTION L BKA 600 mg 08/25 Inactiv e 2023 69758 88103 1 Every 12 hours By Mouth False Cefpodoxime 200 mg tablet [generic] 400 mg By Mouth Twice daily For MRSA INFECTION L BKA 400 mg 08/25 Inactiv e 2023 33442 39226 0 Twice daily By Mouth False Coenzyme Q10 100 mg tablet [generic] 100 mg By Mouth Once daily For SUPP 100 mg 2023 Active 2023 51342 61120 0 Once daily By Mouth False Levothyroxi ne 50 mcg tablet [generic] 50mcg By Mouth Once daily For hypothyroidis m 50mcg 2023 Active 2023 97949 06960 0 Once daily By Mouth False One A Day Men Complete 240 mcg-25 mcg-300 mcg tablet 1 tab By Mouth Once daily For supplement 1 tab 2023 Active 2023 96944 62726 1 Once daily By Mouth False Cholecalcif adalberto (vitamin D3) 50 mcg (2,000 unit) tablet [generic] 1 TAB By Mouth Once daily For SUPP 1 TAB 2023 Active 2023 46188 90303 1 Once daily By Mouth False Cetirizine 10 mg tablet [generic] 1 TAB By Mouth At bedtime For Allergies 1 TAB 2023 Active 2023 41559 74977 0 At bedtime By Mouth False Timolol maleate 0.25 % eye drops [generic] 1 drop Both Eyes Twice daily For glaucoma 1 drop 2023 Active 2023 12002 73323 5 Twice daily Both Eyes False Alendronate 35 mg tablet [generic] 35mg By Mouth Every week For SIADH 35mg 08/31 Inactiv e 2023 66104 67365 5 Every week By Mouth False Lantus Solostar U-100 Insulin 100 unit/mL (3 mL) subcutaneou s pen 18 units Subcutaneous Every morning For DIABETES 18 units 08/25 Inactiv e 2023 22094 61767 0 Every morning Subcut aneous False Lantus Solostar U-100 Insulin 100 unit/mL (3 mL) subcutaneou s pen 18 units Subcutaneous Every morning For DIABETES 18 units 2023 Active 2023 93712 31112 0 Every morning Subcut aneous False Linezolid 600 mg tablet [generic] 600 mg By Mouth Every 12 hours For MRSA INFECTION L BKA 600 mg 08/28 Inactiv e 2023 54293 20891 1 Every 12 hours By Mouth False [...] order For Diabetes 08/31 Inactiv e 2023 38458 70286 9 4 times a day Subcut aneous False Cefpodoxime 200 mg tablet [generic] 400 mg By Mouth Twice daily For MRSA INFECTION L BKA 400 mg 08/28 Inactiv e 2023 54164 52785 0 Twice daily By Mouth False Brimonidine 0.1 % eye drops [generic] 1 drop Both Eyes Twice daily For glaucoma 1 drop 2023 Active 2023 76006 91997 0 Twice daily Both Eyes False Metoprolol succinate ER 50 mg tablet,exte nded release 24 hr [generic] 50 mg By Mouth Once daily HOLD FOR SBP <100, or pulse <60 For HTN 50 mg 2023 Active 2023 15754 11551 1 Once daily By Mouth False Amlodipine 2.5 mg tablet [generic] 2.5 mg By Mouth Once daily For HTN 2.5 mg 2023 Active 2023 78567 19478 5 Once daily By Mouth False Docusate sodium 100 mg capsule [generic] 100mg By Mouth Twice daily as needed For constipation HOLD FOR LOOSE STOOLS 100mg 2023 Active 2023 27439 47547 1 Twice daily as needed By Mouth False Atorvastati n 40 mg tablet [generic] 40mg By Mouth Once daily For HDL 40mg 08/26 Inactiv e 2023 01213 49880 5 Once daily By Mouth False Tylenol 325 mg tablet 2 tabs By Mouth Every 4 hours as needed For Pain DO NOT EXCEED 3000 MG APAP/24 Hours 2 tabs 2023 Active 2023 78200 04932 0 Every 4 hours as needed By Mouth False Tylenol 325 mg tablet 2 tabs By Mouth Every 4 hours as needed For Fever >100 DO NOT EXCEED 3000 MG APAP/24 Hours 2 tabs 2023 Active 2023 45504 24708 0 Every 4 hours as needed By Mouth False Dulcolax (bisacodyl) 10 mg rectal suppository One Suppository per rectum PRN if Milk of Magnisia ineffective. Give on day 5 of no BM 1 sup 2023 Active 2023 84441 25190 1 Daily as needed Rectal False Fleet Enema 19 gram-7 gram/118 mL Administer per rectum PRN one time if dulcolax suppository not effective. Give on day 6 of no BM 1 2023 Active 2023 46130 97413 6 Daily as needed Rectal False Dextrose 50 % in water (D50W) intravenous solution [generic] Dextrose 50% evonne 20-50 ml (slow push) Intravenous if Glucagon not effective after 15 minutes. CALL 911 for ED Evaluation. 50% evonne 2023 Active 2023 61177 18187 9 Intrav enous False Glucagon (HCl) Emergency Kit 1 mg solution for injection Administer Glucagon 1 mg Intramuscular if 15 minutes after GLucose Gel is administered Glucose remains less than 70 1 mg 2023 Active 2023 03384 02799 2 Intram uscula r False Glucose Gel 40 % oral gel [Dextrose] PRN If resident is unable to swallow (with or without symptoms) and Glucose results less than 70 give GLucose 40% Gel 1 tube orally - Recheck Glucose 15 minutes after administratio n. 1 tube 2023 Active 2023 16385 53637 8 By Mouth False Milk of Magnesia 400 mg/5 mL oral suspension [Magnesium hydroxide] PRN 30ml By Mouth Daily as needed for constipation one time daily if no BM, on day 4 of no BM (PRN refer to instructions) For Constipation 30 mL 2023 Active 2023 81146 84185 6 Daily as needed By Mouth False Atorvastati n 40 mg tablet [generic] 08/26 Inactiv e 2023 74626 17012 5 Atorvastati n 40 mg tablet [generic] 40mg By Mouth Once daily For HDL 40mg 2023 Active 2023 89219 22201 5 Once daily By Mouth False Insulin aspart (U-100) 100 unit/mL (3 mL) subcutaneou s pen [generic] 15 units Subcutaneous 1 time For dm 15 units 08/26 Inactiv e 2023 99307 79095 5 1 time Subcut aneous False Humalog KwikPen (U-100) Insulin 100 unit/mL subcutaneou s 15 units Subcutaneous 1 time For dm 15 units 08/27 Inactiv e 2023 54216 04895 9 1 time Subcut aneous False Linezolid 600 mg tablet [generic] 600 mg By Mouth Every 12 hours For MRSA INFECTION L BKA 600 mg 09/06 Inactiv e 2023 31842 06586 1 Every 12 hours By Mouth False Cefpodoxime 200 mg tablet [generic] 400 mg By Mouth Twice daily For MRSA INFECTION L BKA 400 mg 08/31 Inactiv e 2023 84423 39845 0 Twice daily By Mouth False Senna 8.6 mg tablet 8.6 mg By Mouth Once daily For Constipation 8.6 mg 09/07 Inactiv e 2023 90259 83456 1 Once daily By Mouth False Humalog [...] . Per Carb 09/19 Inactiv e 2023 53550 03909 9 4 times a day Subcut aneous False Alendronate 35 mg tablet [generic] 08/31 Inactiv e 2023 91008 12947 5 Alendronate 35 mg tablet [generic] 35mg By Mouth Every week For Osteoporosis 35mg 2023 00/00 /0000 Active 2023 55187 75233 5 Every week By Mouth False ProSource 10 gram-100 kcal/30 mL oral liquid 30 ml By Mouth Once daily For wound healing 30 ml 2023 Active 2023 90192 75795 2 Once daily By Mouth False Clotrimazol e 1 % topical cream [generic] 1 applicaiton Topical Twice daily For tinea, apply to groin rash after cleansing and throughouly drying. Can discontinue order 3 days after rash resolves. 1 applica stacy 09/08 Inactiv e 2023 21797 18568 0 Twice daily Topica l False MAGIC MIX 1:1:1:1 : ZINC OXIDE EXTERNAL OINTMENT 40%; HYDROCOTISO NE EXTERNAL CREAM 1%; NYSTATIN EXTERNAL CREAM 173898C/GM; SILVADENE CREAM 1% Every shift Apply topically to MASD area on coccyx/buttoc ks each shift and as needed for incontinence care For MASD on coccyx layer 2023 Active 2023 Every shift Topica l False Senna 8.6 mg tablet 8.6 mg By Mouth Once daily For Constipation 8.6 mg 09/07 Inactiv e 2023 76212 55232 1 Once daily By Mouth False Senna 8.6 mg tablet 8.6 mg By Mouth Once daily As Needed For Constipation 8.6 mg 2023 Active 2023 42708 78281 1 Once daily By Mouth False BD AutoShield Duo Pen Needle 30 gauge x 3/16in 1 pen needle Subcutaneous 4 times a day For DM 1 pen needle 2023 Active 2023 86120 21299 5 4 times a day Subcut aneous False Hydrocortis one 1 % topical ointment [generic] 1 application Topical Twice daily For tinea *mix 1:1 with clotrimazole cream and apply to clean/dry groin rash 1 applica peggy 09/19 Inactiv e 2023 56453 43577 6 Twice daily Topica l False Clotrimazol e 1 % topical cream [generic] 1 applicaiton Topical Twice daily For tinea, apply to groin rash after cleansing and throughouly drying. MIX WITH HYDROCORTISON E Can discontinue order 3 days after rash resolves. 1 applica stacy 2023 Active 2023 28409 82991 0 Twice daily Topica l False Humalog KwikPen (U-100) Insulin 100 unit/mL subcutaneou s 09/19 Inactiv e 2023 78584 99522 9 Humalog KwikPen (U-100) Insulin 100 unit/mL [...] abnormalities . Per Carb 2023 Active 2023 74402 58624 9 4 times a day Subcut aneous False Humalog KwikPen (U-100) Insulin 100 unit/mL subcutaneou s 08/31 Inactiv e 2023 40941 94687 9 MediHoney HCS 4 1/2in X 4 1/2in bandage Cleanse area with NSS, apply one medihoney hydrocolloid dressing, non adherent dressing, kerlix secure with paper tape daily. 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 08/25/2024 Active [...] weight Temperature SpO2 Blood Sugar Pulse Respirations 92005 8 67.00 mm[Hg] - Sitting 145.00 mm[Hg] - Sitting 98.50 Forehead Scan 96.00 % 81.00/ min 16.00/min 2 67.00 mm[Hg] - Sitting 145.00 mm[Hg] - Sitting 98.50 Tympanic 81.00/ min 16.00/min 00064 004 36859 5 56.00 mm[Hg] - Sitting 142.00 mm[Hg] - Sitting 136.40 NI 100.20 Tympanic 96.00 % 92.00/ min 18.00/min 50874 004 67593 6 88980 004 74718 4 143.00 mg/dL 54501 004 19960 0 97.80 Tympanic 91081 005 55288 7 60.00 mm[Hg] - Sitting 140.00 mm[Hg] - Sitting 98.00 Tympanic 84.00/ min 18.00/min 78758 005 87114 0 63.00 mm[Hg] - Sitting 141.00 mm[Hg] - Sitting 98.20 Tympanic 92.00 % 63.00/ min 16.00/min 31811 005 04085 8 69.00 mm[Hg] - Sitting 106.00 mm[Hg] - Sitting 97.20 Tympanic 18555 005 16407 7 69.00/ min 16.00/min 77951 005 98986 3 69.00 mm[Hg] - Sitting 106.00 mm[Hg] - Sitting 98.20 Tympanic 69.00/ min 16.00/min 02091 005 41774 1 367.00 mg/dL 58405 005 37969 2 97.20 Tympanic 80894 005 18941 4 97.20 Tympanic 96821 005 60976 0 69.00 mm[Hg] - Sitting 106.00 mm[Hg] - Sitting 69.00/ min 32125 005 34199 3 452.00 mg/dL 34803 005 53334 3 452.00 mg/dL 59043 005 82012 5 352.00 mg/dL 58237 005 33026 3 352.00 mg/dL 86078 005 71018 7 98.20 Tympanic 09642 005 70147 3 101.00 mg/dL 79976 005 31251 8 101.00 mg/dL 38134 006 58998 4 66.00 mm[Hg] - Sitting 107.00 mm[Hg] - Sitting 98.00 Tympanic 66.00/ min 18.00/min 13919 006 32953 0 62.00 mm[Hg] - Sitting 162.00 mm[Hg] - Sitting 98.20 Tympanic 96.00 % 60.00/ min 16.00/min 96732 006 97327 4 62.00 mm[Hg] - Sitting 162.00 mm[Hg] - Sitting 98.00 Tympanic 70.00/ min 18.00/min 66258 006 87148 8 62.00 mm[Hg] - Sitting 162.00 mm[Hg] - Sitting 98.20 Tympanic 70.00/ min 18.00/min 74322 006 14358 2 66.00 mm[Hg] - Sitting 132.00 mm[Hg] - Sitting 98.60 Tympanic 74.00/ min 16.00/min 47444 006 07291 5 159.00 mg/dL 69516 006 59084 1 159.00 mg/dL 47932 006 59163 8 98.00 Tympanic 25643 006 31959 2 62.00 mm[Hg] - Sitting 162.00 mm[Hg] - Sitting 70.00/ min 98269 006 69421 7 264.00 mg/dL 95894 006 07062 7 264.00 mg/dL 72335 006 40102 4 196.00 mg/dL 35017 006 73334 3 98.20 Tympanic 02932 006 93636 6 271.00 mg/dL 69664 007 97928 3 97.20 Tympanic 99079 007 21410 2 63.00 mm[Hg] - Sitting 132.00 mm[Hg] - Sitting 98.50 Tympanic 94.00 % 66.00/ min 16.00/min 72166 007 92066 5 188.00 mg/dL 97690 007 15179 2 188.00 mg/dL 32146 007 52016 2 188.00 mg/dL 85040 007 51546 7 97.20 Tympanic 36572 007 78967 6 97.20 Tympanic 72653 007 62338 5 67.00 mm[Hg] - Sitting 152.00 mm[Hg] - Sitting 68.00/ min 30792 007 87175 0 141.00 mg/dL 02302 007 11542 3 141.00 mg/dL 60322 007 26144 1 366.00 mg/dL 42091 007 49705 7 366.00 mg/dL 47815 007 69790 7 98.00 Tympanic 95093 007 04111 6 324.00 mg/dL 26011 007 23414 3 98.00 Tympanic 69502 007 44804 7 324.00 mg/dL 80301 008 58583 0 98.00 Tympanic 31540 008 96140 2 97.90 Tympanic 83940 008 45561 0 98.20 Tympanic 10797 008 93117 0 73.00 mm[Hg] - Sitting 156.00 mm[Hg] - Sitting 98.60 Tympanic 99.00 % 66.00/ min 20.00/min 15650 008 04289 5 137.00 mg/dL 34275 008 79078 7 137.00 mg/dL 39941 008 95795 2 97.90 Tympanic 32554 008 83970 1 137.00 mg/dL 09275 008 67538 8 97.90 Tympanic 06590 008 54599 5 67.00 mm[Hg] - Sitting 124.00 /min 90049 008 39638 6 212.00 mg/dL 90192 008 93722 6 212.00 mg/dL 40483 008 03717 9 317.00 mg/dL 85431 008 59871 4 317.00 mg/dL 25058 008 08203 8 252.00 mg/dL 09873 008 57234 0 98.70 Tympanic 74980 008 12165 7 252.00 mg/dL 27575 008 06521 3 98.70 Tympanic 19936 009 67545 9 98.70 Tympanic 73559 009 17920 3 98.20 Tympanic 70394 009 00598 5 98.40 Tympanic 40630 009 60400 5 57.00 mm[Hg] - Sitting 129.00 mm[Hg] - Sitting 98.30 Tympanic 97.00 % 65.00/ min 18.00/min 35178 009 02085 1 255.00 mg/dL 59487 009 42955 4 255.00 mg/dL 86465 009 12142 5 98.20 Tympanic 91559 009 91784 0 255.00 mg/dL 40093 009 76339 0 98.20 Tympanic 97184 009 98323 4 63.00 mm[Hg] - Lying Down 102.00 mm[Hg] - Lying Down 58.00/ min 27381 009 39739 0 167.00 mg/dL 56610 009 82739 1 167.00 mg/dL 14508 009 79928 2 164.00 mg/dL 27666 009 98135 1 164.00 mg/dL 70421 009 06847 5 208.00 mg/dL 31764 010 75244 3 98.40 Tympanic 21775 010 47938 5 98.40 Tympanic 93517 010 57291 7 66 NI 67577 010 57904 4 60.00 mm[Hg] - Sitting 143.00 mm[Hg] - Sitting 98.90 Tympanic 98.00 % 67.00/ min 18.00/min 48718 010 22417 2 214.00 mg/dL 38836 010 58308 0 214.00 mg/dL 75016 010 95633 7 214.00 mg/dL 18319 010 71199 6 64.00 mm[Hg] - Sitting 110.00 mm[Hg] - Sitting 72.00/ min 30526 010 65428 7 98.40 Tympanic 55667 010 89857 1 212.00 mg/dL 68662 010 31790 2 212.00 mg/dL 32548 010 64934 1 115.00 mg/dL 95844 010 90122 0 115.00 mg/dL 19993 010 78834 4 98.50 Tympanic 79701 010 49521 4 150.00 mg/dL 78492 010 68516 0 150.00 mg/dL 84991 011 56765 9 98.60 Tympanic 63078 011 89113 1 67.00 mm[Hg] - Sitting 144.00 mm[Hg] - Sitting 98.20 Tympanic 98.00 % 61.00/ min 18.00/min 51568 011 52386 7 290.00 mg/dL 71736 011 34170 2 290.00 mg/dL 09508 011 17430 2 290.00 mg/dL 00539 011 37964 7 54.00 mm[Hg] - Sitting 136.00 mm[Hg] - Sitting 101.00 /min 42822 011 11143 7 98.60 Tympanic 63667 011 91122 5 240.00 mg/dL 13430 011 23102 1 240.00 mg/dL 62889 011 41665 1 156.00 mg/dL 33380 011 22006 9 156.00 mg/dL 77774 011 30342 0 97.80 Tympanic 22571 011 80639 8 343.00 mg/dL 25049 012 98451 9 97.90 Tympanic 02614 012 42983 2 466.00 mg/dL 40512 012 82529 1 466.00 mg/dL 69519 012 10278 3 466.00 mg/dL 19986 012 84362 8 97.90 Tympanic 44809 012 64366 8 56.00 mm[Hg] - Sitting 96.00 mm[Hg] - Sitting 61.00/ min 10747 012 52104 7 350.00 mg/dL 45392 012 80432 5 350.00 mg/dL 78256 012 33002 6 111.00 mg/dL 30872 012 25132 0 111.00 mg/dL 43474 012 21419 5 98.40 Tympanic 26032 012 82352 6 114.00 mg/dL 95611 013 79480 4 74.00 mm[Hg] - Sitting 112.00 mm[Hg] - Sitting 98.40 Tympanic 70.00/ min 18.00/min 64178 013 13316 8 244.00 mg/dL 39798 013 72581 7 244.00 mg/dL 68781 013 92536 1 244.00 mg/dL 29219 013 45470 1 98.20 Tympanic 17619 013 82001 7 72.00 mm[Hg] - Sitting 119.00 mm[Hg] - Sitting 76.00/ min 48452 013 66297 7 253.00 mg/dL 23184 013 53724 4 253.00 mg/dL 74128 013 71838 9 156.00 mg/dL 97652 013 66650 5 156.00 mg/dL 47784 013 16384 4 97.90 Tympanic 63434 013 93833 5 189.00 mg/dL 94496 014 01643 9 98.10 Tympanic 23429 014 03750 0 61.00 mm[Hg] - Sitting 139.00 mm[Hg] - Sitting 98.20 Forehead Scan 99.00 % 66.00/ min 18.00/min 98576 014 20915 3 169.00 mg/dL 78621 014 58116 3 98.10 Tympanic 67470 014 52487 3 75.00 mm[Hg] - Sitting 121.00 mm[Hg] - Sitting 71.00/ min 58860 014 66309 9 221.00 mg/dL 29771 014 54184 9 62.00 mg/dL 15868 014 98341 5 62.00 mg/dL 00342 014 45704 8 156.00 mg/dL 15993 014 62899 6 98.10 Tympanic 92006 014 65598 7 156.00 mg/dL 35927 015 83929 4 37546 015 03472 7 62.00 mm[Hg] - Sitting 142.00 mm[Hg] - Sitting 98.20 Tympanic 99.00 % 67.00/ min 18.00/min 93875 015 18751 9 120.00 mg/dL 45427 015 20465 7 98.00 Tympanic 26533 015 42190 2 82.00 mm[Hg] - Sitting 119.00 /min 60341 015 25436 9 110.00 mg/dL 27493 015 45738 6 104.00 mg/dL 02799 015 09625 0 100.00 mg/dL 91607 015 79056 2 98.10 Tympanic 42970 015 27296 6 100.00 mg/dL 72910 016 46901 2 67.00 mm[Hg] - Sitting 147.00 mm[Hg] - Sitting 99.00 Tympanic 99.00 % 78.00/ min 20.00/min 96024 016 12543 5 158.00 mg/dL 34322 016 46338 1 158.00 mg/dL 91217 016 94330 2 158.00 mg/dL 38309 016 75290 0 66.00 mm[Hg] - Sitting 121.00 mm[Hg] - Sitting 74.00/ min 06415 016 71080 1 97.00 mg/dL 51266 016 72507 5 97.00 mg/dL 97256 016 66147 4 78.00 mg/dL 35992 016 36411 6 78.00 mg/dL 55052 016 85738 5 248.00 mg/dL 45541 016 42578 8 248.00 mg/dL 04776 017 21555 3 54.00 mm[Hg] - Sitting 142.00 mm[Hg] - Sitting 98.30 Tympanic 99.00 % 76.00/ min 18.00/min 76301 017 57783 4 267.00 mg/dL 48929 017 43077 6 73.00 mm[Hg] - Sitting 109.00 mm[Hg] - Sitting 70.00/ min 55478 017 25164 1 184.00 mg/dL 20189 017 71927 5 184.00 mg/dL 34414 017 34054 9 248.00 mg/dL 78567 017 02245 8 299.00 mg/dL 62534 017 15554 3 299.00 mg/dL 40920 018 67370 7 50.00 mm[Hg] - Sitting 125.00 mm[Hg] - Sitting 98.30 Tympanic 98.00 % 76.00/ min 16.00/min 36581 018 93142 3 168.00 mg/dL 34301 018 81337 0 75.00 mm[Hg] - Sitting 121.00 mm[Hg] - Sitting 70.00/ min 96414 018 43351 7 264.00 mg/dL 76979 018 91542 6 132.00 mg/dL 50842 018 52811 6 154.00 mg/dL 90207 018 71936 6 154.00 mg/dL 30208 019 78560 4 63.00 mm[Hg] - Sitting 147.00 mm[Hg] - Sitting 98.50 Tympanic 99.00 % 69.00/ min 18.00/min 34375 019 10912 9 159.00 mg/dL 16265 019 47608 8 73.00 mm[Hg] - Sitting 110.00 mm[Hg] - Sitting 72.00/ min 10474 019 16458 4 191.00 mg/dL 31590 019 19525 8 70.00 mg/dL 40764 019 80488 4 70.00 mg/dL 24086 019 68854 6 198.00 mg/dL 30213 019 55009 0 198.00 mg/dL 21833 020 09355 2 59.00 mm[Hg] - Sitting 131.00 mm[Hg] - Sitting 98.90 Tympanic 99.00 % 69.00/ min 18.00/min 27682 020 35568 7 299.00 mg/dL 80110 020 20702 0 62.00 mm[Hg] - Sitting 132.00 mm[Hg] - Sitting 68.00/ min 79827 020 85103 3 299.00 mg/dL 16999 020 47825 3 299.00 mg/dL 93757 020 77716 9 220.00 mg/dL 29268 020 80023 1 220.00 mg/dL 29537 020 06220 1 270.00 mg/dL 84949 020 59625 4 270.00 mg/dL 41334 020 51792 9 143.00 mg/dL 17436 020 54641 4 143.00 mg/dL 66985 021 45520 0 59.00 mm[Hg] - Sitting 121.00 mm[Hg] - Sitting 98.40 Forehead Scan 98.00 % 70.00/ min 16.00/min 43433 021 27152 0 140.00 mg/dL 77991 021 03872 0 67.00 mm[Hg] - Sitting 130.00 mm[Hg] - Sitting 68.00/ min 76085 021 49567 8 140.00 mg/dL 88642 021 71800 6 140.00 mg/dL 91333 021 41211 8 156.00 mg/dL 74155 021 35546 1 156.00 mg/dL 01354 021 14168 5 146.00 mg/dL 26178 021 52578 4 146.00 mg/dL 82680 021 04399 5 183.00 mg/dL 24586 021 21748 2 183.00 mg/dL 49653 022 54196 3 50306 022 69441 1 43.00 mm[Hg] - Sitting 113.00 mm[Hg] - Sitting 97.80 Tympanic 97.00 % 64.00/ min 18.00/min 52304 022 02629 6 270.00 mg/dL 53867 022 01902 5 68.00 mm[Hg] - Sitting 122.00 mm[Hg] - Sitting 67.00/ min 40428 022 07621 9 270.00 mg/dL 82607 022 37796 4 270.00 mg/dL 00852 022 80896 4 207.00 mg/dL 44659 022 21591 8 207.00 mg/dL 02930 022 08584 9 217.00 mg/dL 88272 022 95874 2 217.00 mg/dL 52501 022 95034 0 192.00 mg/dL 46742 022 49613 9 192.00 mg/dL 94386 023 13990 8 48.00 mm[Hg] - Sitting 116.00 mm[Hg] - Sitting 98.50 Tympanic 97.00 % 63.00/ min 18.00/min 68431 023 21758 9 68.00 mm[Hg] - Sitting 131.00 mm[Hg] - Sitting 68.00/ min 52411 023 89117 8 235.00 mg/dL 45582 023 92764 4 235.00 mg/dL 66193 023 20833 0 235.00 mg/dL 81201 023 60365 0 199.00 mg/dL 63785 023 54586 7 199.00 mg/dL 90344 023 13315 4 233.00 mg/dL 65857 023 64573 3 233.00 mg/dL 35828 023 79528 6 229.00 mg/dL 95657 023 35219 4 229.00 mg/dL 37335 024 67915 3 58.00 mm[Hg] - Sitting 102.00 mm[Hg] - Sitting 58.00/ min 58021 024 71683 9 156.00 mg/dL 57342 024 25659 4 156.00 mg/dL 47440 024 07295 3 156.00 mg/dL 73757 024 60593 0 343.00 mg/dL 37433 024 15682 6 343.00 mg/dL 66219 024 43988 2 167.00 mg/dL 02999 024 74092 0 167.00 mg/dL 61004 024 71206 8 155.00 mg/dL 50345 024 34395 7 155.00 mg/dL 29269 025 86600 0 51.00 mm[Hg] - Lying Down 109.00 mm[Hg] - Lying Down 98.60 Tympanic 95.00 % 67.00/ min 20.00/min 12271 025 87056 0 60.00 mm[Hg] - Sitting 118.00 mm[Hg] - Sitting 98.30 Forehead Scan 98.00 % 68.00/ min 16.00/min 16687 025 52080 3 235.00 mg/dL 79332 025 94742 1 63.00 mm[Hg] - Sitting 110.00 mm[Hg] - Sitting 75.00/ min 37779 025 15087 9 295.00 mg/dL 87085 025 36721 4 94.00 mg/dL 21561 025 39407 1 132.00 mg/dL 55028 025 38476 2 132.00 mg/dL 02099 026 27784 8 50.00 mm[Hg] - Sitting 123.00 mm[Hg] - Sitting 98.50 Tympanic 95.00 % 66.00/ min 18.00/min 26874 026 73808 0 275.00 mg/dL 97391 026 51844 7 275.00 mg/dL 16679 026 01012 1 275.00 mg/dL 43692 026 76730 6 67.00 mm[Hg] - Sitting 123.00 mm[Hg] - Sitting 66.00/ min 09222 026 04315 3 187.00 mg/dL 39451 026 76763 5 187.00 mg/dL 91938 026 88852 0 167.00 mg/dL 07034 026 53459 8 167.00 mg/dL 77274 026 25010 6 387.00 mg/dL 43748 027 01820 7 53.00 mm[Hg] - Sitting 132.00 mm[Hg] - Sitting 98.60 Tympanic 97.00 % 64.00/ min 18.00/min 26317 027 30471 9 189.00 mg/dL 10563 027 58036 4 67.00 mm[Hg] - Sitting 118.00 mm[Hg] - Sitting 66.00/ min 18707 027 74363 2 189.00 mg/dL 19811 027 81768 7 189.00 mg/dL 51514 027 63246 1 105.00 mg/dL 48355 027 61053 8 105.00 mg/dL 38894 027 90758 4 223.00 mg/dL 66026 027 98994 9 223.00 mg/dL 56012 027 04718 9 164.00 mg/dL 75853 028 28871 0 68.00 mm[Hg] - Sitting 115.00 mm[Hg] - Sitting 98.60 Forehead Scan 96.00 % 71.00/ min 16.00/min 69053 028 84798 1 200.00 mg/dL 08526 028 55222 9 200.00 mg/dL 44378 028 11830 1 69.00 mm[Hg] - Sitting 122.00 mm[Hg] - Sitting 67.00/ min 76539 028 48486 3 200.00 mg/dL 74403 028 20715 0 117.00 mg/dL 17977 028 34639 0 117.00 mg/dL 97665 028 79873 1 114.00 mg/dL 55507 028 52726 7 114.00 mg/dL 08145 028 17334 0 179.00 mg/dL 14241 028 12049 8 179.00 mg/dL 50751 029 53421 9 147.00 mg/dL 33649 029 41674 0 147.00 mg/dL 01049 029 27492 4 147.00 mg/dL 69764 029 58819 1 63.00 mm[Hg] - Sitting 118.00 mm[Hg] - Sitting 74.00/ min 65304 029 75595 2 278.00 mg/dL 42974 029 20968 3 278.00 mg/dL Immunizations Vaccine Date Status COVID-19 09/20/2023 Completed Influenza 09/14/2024 Completed Other 10/08/2023 Completed Shingles 05/27/2011 Completed Tetanus 04/13/2022 Completed TDaP 04/13/2022 Completed Shingles 2 10/05/2018 Completed
--- OUTSIDE RECORDS SUMMARY | 2024-10-03 10:57 | External Medical Summary | Continuity Of Care Document ---
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 unit/0.1 mL intradermal injection solution [Tuberculin PPD] 0.1mL Intradermal 1 time For PPD 2nd Step Give 2nd Step PPD Day 1 and Read results Day 3 (schedule 7 days after 1st READ) 0.1mL 09/08 Inactiv e 2023 20028 46846 0 1 time Intrad ermal False [facility] - Nurse initials indicate verificatio n that [id number] vaccine was administere d by [facility] [...] order For Diabetes 08/25 Inactiv e 2023 46491 15407 9 4 times a day Subcut aneous False Aspirin 325 mg tablet [generic] 325 By Mouth Twice daily For Anticoagulati on 325 09/25 Active 2023 14789 63590 1 Twice daily By Mouth False Ferrous sulfate 325 mg (65 mg iron) tablet [generic] 325 By Mouth Once daily For anemia 325 2023 Active 2023 95790 48008 5 Once daily By Mouth False Linezolid 600 mg tablet [generic] 600 mg By Mouth Every 12 hours For MRSA INFECTION L BKA 600 mg 08/25 Inactiv e 2023 18393 38913 1 Every 12 hours By Mouth False Cefpodoxime 200 mg tablet [generic] 400 mg By Mouth Twice daily For MRSA INFECTION L BKA 400 mg 08/25 Inactiv e 2023 63965 66311 0 Twice daily By Mouth False Coenzyme Q10 100 mg tablet [generic] 100 mg By Mouth Once daily For SUPP 100 mg 2023 Active 2023 14055 90792 0 Once daily By Mouth False Levothyroxi ne 50 mcg tablet [generic] 50mcg By Mouth Once daily For hypothyroidis m 50mcg 2023 Active 2023 42216 02814 0 Once daily By Mouth False One A Day Men Complete 240 mcg-25 mcg-300 mcg tablet 1 tab By Mouth Once daily For supplement 1 tab 2023 Active 2023 00260 42033 1 Once daily By Mouth False Cholecalcif adalberto (vitamin D3) 50 mcg (2,000 unit) tablet [generic] 1 TAB By Mouth Once daily For SUPP 1 TAB 2023 Active 2023 62727 13303 1 Once daily By Mouth False Cetirizine 10 mg tablet [generic] 1 TAB By Mouth At bedtime For Allergies 1 TAB 2023 Active 2023 27440 57032 0 At bedtime By Mouth False Timolol maleate 0.25 % eye drops [generic] 1 drop Both Eyes Twice daily For glaucoma 1 drop 2023 Active 2023 06825 90444 5 Twice daily Both Eyes False Alendronate 35 mg tablet [generic] 35mg By Mouth Every week For SIADH 35mg 08/31 Inactiv e 2023 15853 80687 5 Every week By Mouth False Lantus Solostar U-100 Insulin 100 unit/mL (3 mL) subcutaneou s pen 18 units Subcutaneous Every morning For DIABETES 18 units 08/25 Inactiv e 2023 99439 05811 0 Every morning Subcut aneous False Lantus Solostar U-100 Insulin 100 unit/mL (3 mL) subcutaneou s pen 18 units Subcutaneous Every morning For DIABETES 18 units 2023 Active 2023 85742 12711 0 Every morning Subcut aneous False Linezolid 600 mg tablet [generic] 600 mg By Mouth Every 12 hours For MRSA INFECTION L BKA 600 mg 08/28 Inactiv e 2023 40269 30284 1 Every 12 hours By Mouth False [...] order For Diabetes 08/31 Inactiv e 2023 82772 54352 9 4 times a day Subcut aneous False Cefpodoxime 200 mg tablet [generic] 400 mg By Mouth Twice daily For MRSA INFECTION L BKA 400 mg 08/28 Inactiv e 2023 09767 11306 0 Twice daily By Mouth False Brimonidine 0.1 % eye drops [generic] 1 drop Both Eyes Twice daily For glaucoma 1 drop 2023 Active 2023 97570 53551 0 Twice daily Both Eyes False Metoprolol succinate ER 50 mg tablet,exte nded release 24 hr [generic] 50 mg By Mouth Once daily HOLD FOR SBP <100, or pulse <60 For HTN 50 mg 2023 Active 2023 24871 86686 1 Once daily By Mouth False Amlodipine 2.5 mg tablet [generic] 2.5 mg By Mouth Once daily For HTN 2.5 mg 2023 Active 2023 06721 77347 5 Once daily By Mouth False Docusate sodium 100 mg capsule [generic] 100mg By Mouth Twice daily as needed For constipation HOLD FOR LOOSE STOOLS 100mg 2023 Active 2023 49606 94980 1 Twice daily as needed By Mouth False Atorvastati n 40 mg tablet [generic] 40mg By Mouth Once daily For HDL 40mg 08/26 Inactiv e 2023 27534 02760 5 Once daily By Mouth False Tylenol 325 mg tablet 2 tabs By Mouth Every 4 hours as needed For Pain DO NOT EXCEED 3000 MG APAP/24 Hours 2 tabs 2023 Active 2023 34575 71008 0 Every 4 hours as needed By Mouth False Tylenol 325 mg tablet 2 tabs By Mouth Every 4 hours as needed For Fever >100 DO NOT EXCEED 3000 MG APAP/24 Hours 2 tabs 2023 Active 2023 48160 48385 0 Every 4 hours as needed By Mouth False Dulcolax (bisacodyl) 10 mg rectal suppository One Suppository per rectum PRN if Milk of Magnisia ineffective. Give on day 5 of no BM 1 sup 2023 Active 2023 69278 27242 1 Daily as needed Rectal False Fleet Enema 19 gram-7 gram/118 mL Administer per rectum PRN one time if dulcolax suppository not effective. Give on day 6 of no BM 1 2023 Active 2023 30635 30937 6 Daily as needed Rectal False Dextrose 50 % in water (D50W) intravenous solution [generic] Dextrose 50% evonne 20-50 ml (slow push) Intravenous if Glucagon not effective after 15 minutes. CALL 911 for ED Evaluation. 50% evonne 2023 Active 2023 27221 24956 9 Intrav enous False Glucagon (HCl) Emergency Kit 1 mg solution for injection Administer Glucagon 1 mg Intramuscular if 15 minutes after GLucose Gel is administered Glucose remains less than 70 1 mg 2023 Active 2023 20204 61630 2 Intram uscula r False Glucose Gel 40 % oral gel [Dextrose] PRN If resident is unable to swallow (with or without symptoms) and Glucose results less than 70 give GLucose 40% Gel 1 tube orally - Recheck Glucose 15 minutes after administratio n. 1 tube 2023 Active 2023 65760 55781 8 By Mouth False Milk of Magnesia 400 mg/5 mL oral suspension [Magnesium hydroxide] PRN 30ml By Mouth Daily as needed for constipation one time daily if no BM, on day 4 of no BM (PRN refer to instructions) For Constipation 30 mL 2023 Active 2023 49454 45795 6 Daily as needed By Mouth False Atorvastati n 40 mg tablet [generic] 08/26 Inactiv e 2023 63980 55203 5 Atorvastati n 40 mg tablet [generic] 40mg By Mouth Once daily For HDL 40mg 2023 Active 2023 12649 49614 5 Once daily By Mouth False Insulin aspart (U-100) 100 unit/mL (3 mL) subcutaneou s pen [generic] 15 units Subcutaneous 1 time For dm 15 units 08/26 Inactiv e 2023 01448 27622 5 1 time Subcut aneous False Humalog KwikPen (U-100) Insulin 100 unit/mL subcutaneou s 15 units Subcutaneous 1 time For dm 15 units 08/27 Inactiv e 2023 18501 46830 9 1 time Subcut aneous False Linezolid 600 mg tablet [generic] 600 mg By Mouth Every 12 hours For MRSA INFECTION L BKA 600 mg 09/06 Inactiv e 2023 95700 87798 1 Every 12 hours By Mouth False Cefpodoxime 200 mg tablet [generic] 400 mg By Mouth Twice daily For MRSA INFECTION L BKA 400 mg 08/31 Inactiv e 2023 23862 12546 0 Twice daily By Mouth False Senna 8.6 mg tablet 8.6 mg By Mouth Once daily For Constipation 8.6 mg 09/07 Inactiv e 2023 83626 68851 1 Once daily By Mouth False Humalog [...] abnormalities . Per Carb 2023 Active 2023 00852 18280 9 4 times a day Subcut aneous False Alendronate 35 mg tablet [generic] 08/31 Inactiv e 2023 08591 17518 5 Alendronate 35 mg tablet [generic] 35mg By Mouth Every week For Osteoporosis 35mg 202300 /0000 Active 2023 52636 12843 5 Every week By Mouth False ProSource 10 gram-100 kcal/30 mL oral liquid 30 ml By Mouth Once daily For wound healing 30 ml 2023 Active 2023 13935 87979 2 Once daily By Mouth False Clotrimazol e 1 % topical cream [generic] 1 applicaiton Topical Twice daily For tinea, apply to groin rash after cleansing and throughouly drying. Can discontinue order 3 days after rash resolves. 1 applica stacy 09/08 Inactiv e 2023 71790 50227 0 Twice daily Topica l False MAGIC MIX 1:1:1:1 : ZINC OXIDE EXTERNAL OINTMENT 40%; HYDROCOTISO NE EXTERNAL CREAM 1%; NYSTATIN EXTERNAL CREAM 531462T/GM; SILVADENE CREAM 1% Every shift Apply topically to MASD area on coccyx/buttoc ks each shift and as needed for incontinence care For MASD on coccyx layer 2023 Active 2023 Every shift Topica l False Senna 8.6 mg tablet 8.6 mg By Mouth Once daily For Constipation 8.6 mg 09/07 Inactiv e 2023 74646 78764 1 Once daily By Mouth False Senna 8.6 mg tablet 8.6 mg By Mouth Once daily As Needed For Constipation 8.6 mg 2023 Active 2023 23395 37714 1 Once daily By Mouth False BD AutoShield Duo Pen Needle 30 gauge x 3/16in 1 pen needle Subcutaneous 4 times a day For DM 1 pen needle 2023 Active 2023 87526 05736 5 4 times a day Subcut aneous False Hydrocortis one 1 % topical ointment [generic] 1 application Topical Twice daily For tinea *mix 1:1 with clotrimazole cream and apply to clean/dry groin rash 1 applica peggy 09/19 Inactiv e 2023 86851 75214 6 Twice daily Topica l False Clotrimazol e 1 % topical cream [generic] 1 applicaiton Topical Twice daily For tinea, apply to groin rash after cleansing and throughouly drying. MIX WITH HYDROCORTISON E Can discontinue order 3 days after rash resolves. 1 applica stacy 2023 Active 2023 84917 81378 0 Twice daily Topica l False Humalog KwikPen (U-100) Insulin 100 unit/mL subcutaneou s 08/31 Inactiv e 2023 15136 53950 9 MediHoney HCS 4 1/2in X 4 1/2in bandage Cleanse area with NSS, apply one [facility] hydrocolloid dressing, non adherent dressing, kerlix secure with paper tape daily. For wound stage III 1 09/19 Inactiv e 2023 55512 27961 1 Once daily Topica l False Betadine 10 % topical solution wound care cleanse withnormal saline, apply gauze soaked in betadine, leave on 5 minutes pat dry leave open to air 1 2023 Active 2023 48093 84081 1 Once daily Topica l False Problems Code Description Start Date End Date Status D64.9 Anemia, unspecified 08/25/2024 Activ e I25.10 Atherosclerotic hear t disease of [place] coronary artery without angina pectoris 08/25/2024 Active E78.5 Hyperlipidemia, unspecified 08/25/2024 00 Active I10. Essential (primary) hypertension 08/25/2024 Active M86.9 Osteomyelitis, unspecified 08/25/2024000 0 Active Z89.512 Acquired absence of left [...] weight Temperature SpO2 Blood Sugar Pulse Respirations 24073 8 67.00 mm[Hg] - Sitting 145.00 mm[Hg] - Sitting 98.50 Forehead Scan 96.00 % 81.00/ min 16.00/min 004 32683 2 67.00 mm[Hg] - Sitting 145.00 mm[Hg] - Sitting 98.50 Tympanic 81.00/ min 16.00/min 004 03895 5 56.00 mm[Hg] - Sitting 142.00 mm[Hg] - Sitting 136.40 NI 100.20 Tympanic 96.00 % 92.00/ min 18.00/min 62773 004 04648 6 004 99974 4 143.00 mg/dL 35326 0 97.80 Tympanic 005 45470 7 60.00 mm[Hg] - Sitting 140.00 mm[Hg] - Sitting 98.00 Tympanic 84.00/ min 18.00/min 76847 005 88765 0 63.00 mm[Hg] - Sitting 141.00 mm[Hg] - Sitting 98.20 Tympanic 92.00 % 63.00/ min 16.00/min 88374 005 93713 8 69.00 mm[Hg] - Sitting 106.00 mm[Hg] - Sitting 97.20 Tympanic 24116 005 25364 7 69.00/ min 16.00/min 21171 005 43644 3 69.00 mm[Hg] - Sitting 106.00 mm[Hg] - Sitting 98.20 Tympanic 69.00/ min 16.00/min 59518 005 55893 1 367.00 mg/dL 53758 005 68129 2 97.20 Tympanic 27316 005 54761 4 97.20 Tympanic 71358 005 73450 0 69.00 mm[Hg] - Sitting 106.00 mm[Hg] - Sitting 69.00/ min 17721 005 42674 3 452.00 mg/dL 47022 005 38869 3 452.00 mg/dL 22533 005 39223 5 352.00 mg/dL 99076 005 25481 3 352.00 mg/dL 32332 005 25538 7 98.20 Tympanic 74061 005 85058 3 101.00 mg/dL 34109 005 32572 8 101.00 mg/dL 86142 006 49532 4 66.00 mm[Hg] - Sitting 107.00 mm[Hg] - Sitting 98.00 Tympanic 66.00/ min 18.00/min 47600 006 20764 0 62.00 mm[Hg] - Sitting 162.00 mm[Hg] - Sitting 98.20 Tympanic 96.00 % 60.00/ min 16.00/min 96825 006 69687 4 62.00 mm[Hg] - Sitting 162.00 mm[Hg] - Sitting 98.00 Tympanic 70.00/ min 18.00/min 23830 006 32523 8 62.00 mm[Hg] - Sitting 162.00 mm[Hg] - Sitting 98.20 Tympanic 70.00/ min 18.00/min 69263 006 17343 2 66.00 mm[Hg] - Sitting 132.00 mm[Hg] - Sitting 98.60 Tympanic 74.00/ min 16.00/min 98738 006 14735 5 159.00 mg/dL 80223 006 09196 1 159.00 mg/dL 96563 006 44285 8 98.00 Tympanic 51079 006 72220 2 62.00 mm[Hg] - Sitting 162.00 mm[Hg] - Sitting 70.00/ min 47914 006 03048 7 264.00 mg/dL 77101 006 73801 7 264.00 mg/dL 37388 006 47853 4 196.00 mg/dL 49777 006 99385 3 98.20 Tympanic 92901 006 27860 6 271.00 mg/dL 98753 007 40222 3 97.20 Tympanic 05600 007 29381 2 63.00 mm[Hg] - Sitting 132.00 mm[Hg] - Sitting 98.50 Tympanic 94.00 % 66.00/ min 16.00/min 69902 007 41993 5 188.00 mg/dL 15931 007 69617 2 188.00 mg/dL 95804 007 20795 2 188.00 mg/dL 95838 007 45556 7 97.20 Tympanic 06409 007 69708 6 97.20 Tympanic 79797 007 54861 5 67.00 mm[Hg] - Sitting 152.00 mm[Hg] - Sitting 68.00/ min 87640 007 03289 0 141.00 mg/dL 01331 007 71026 3 141.00 mg/dL 55086 007 26846 1 366.00 mg/dL 90345 007 72369 7 366.00 mg/dL 28655 007 46011 7 98.00 Tympanic 12388 007 29336 6 324.00 mg/dL 98684 007 68226 3 98.00 Tympanic 78001 007 92592 7 324.00 mg/dL 43927 008 00068 0 98.00 Tympanic 82067 008 00059 2 97.90 Tympanic 42214 008 76024 0 98.20 Tympanic 92817 008 65955 0 73.00 mm[Hg] - Sitting 156.00 mm[Hg] - Sitting 98.60 Tympanic 99.00 % 66.00/ min 20.00/min 39592 008 98369 5 137.00 mg/dL 97368 008 56023 7 137.00 mg/dL 66566 008 63909 2 97.90 Tympanic 30773 008 90646 1 137.00 mg/dL 03821 008 44348 8 97.90 Tympanic 05715 008 73578 5 67.00 mm[Hg] - Sitting 124.00 /min 81427 008 85723 6 212.00 mg/dL 33050 008 86154 6 212.00 mg/dL 81916 008 97601 9 317.00 mg/dL 98637 008 52093 4 317.00 mg/dL 63091 008 74311 8 252.00 mg/dL 91110 008 47286 0 98.70 Tympanic 61455 008 72877 7 252.00 mg/dL 36332 008 02471 3 98.70 Tympanic 27473 009 50355 9 98.70 Tympanic 53575 009 63524 3 98.20 Tympanic 19693 009 92056 5 98.40 Tympanic 00741 009 60949 5 57.00 mm[Hg] - Sitting 129.00 mm[Hg] - Sitting 98.30 Tympanic 97.00 % 65.00/ min 18.00/min 27271 009 56164 1 255.00 mg/dL 67502 009 78850 4 255.00 mg/dL 14842 009 73941 5 98.20 Tympanic 87925 009 12433 0 255.00 mg/dL 49320 009 08369 0 98.20 Tympanic 00727 009 91734 4 63.00 mm[Hg] - Lying Down 102.00 mm[Hg] - Lying Down 58.00/ min 86167 009 94615 0 167.00 mg/dL 50744 009 10613 1 167.00 mg/dL 84550 009 93533 2 164.00 mg/dL 49574 009 61507 1 164.00 mg/dL 73036 009 60589 5 208.00 mg/dL 72702 010 85456 3 98.40 Tympanic 85394 010 96153 5 98.40 Tympanic 08372 010 13677 7 66 NI 04600 010 02904 4 60.00 mm[Hg] - Sitting 143.00 mm[Hg] - Sitting 98.90 Tympanic 98.00 % 67.00/ min 18.00/min 98401 010 18858 2 214.00 mg/dL 80720 010 06892 0 214.00 mg/dL 94557 010 85927 7 214.00 mg/dL 74132 010 84440 6 64.00 mm[Hg] - Sitting 110.00 mm[Hg] - Sitting 72.00/ min 69675 010 96061 7 98.40 Tympanic 03720 010 71418 1 212.00 mg/dL 53690 010 74649 2 212.00 mg/dL 51885 010 62269 1 115.00 mg/dL 17898 010 28451 0 115.00 mg/dL 53260 010 51567 4 98.50 Tympanic 54060 010 95507 4 150.00 mg/dL 11431 010 28778 0 150.00 mg/dL 77136 011 92038 9 98.60 Tympanic 08313 011 02041 1 67.00 mm[Hg] - Sitting 144.00 mm[Hg] - Sitting 98.20 Tympanic 98.00 % 61.00/ min 18.00/min 12550 011 87974 7 290.00 mg/dL 52247 011 35309 2 290.00 mg/dL 40434 011 50655 2 290.00 mg/dL 10850 011 17619 7 54.00 mm[Hg] - Sitting 136.00 mm[Hg] - Sitting 101.00 /min 64719 011 17200 7 98.60 Tympanic 03980 011 78386 5 240.00 mg/dL 22206 011 04640 1 240.00 mg/dL 78643 011 34509 1 156.00 mg/dL 66677 011 76501 9 156.00 mg/dL 83332 011 83201 0 97.80 Tympanic 45509 011 88626 8 343.00 mg/dL 84720 012 76745 9 97.90 Tympanic 92668 012 05807 2 466.00 mg/dL 00031 012 52566 1 466.00 mg/dL 48465 012 61032 3 466.00 mg/dL 40139 012 65440 8 97.90 Tympanic 95340 012 55712 8 56.00 mm[Hg] - Sitting 96.00 mm[Hg] - Sitting 61.00/ min 92354 012 31119 7 350.00 mg/dL 80258 012 97250 5 350.00 mg/dL 64320 012 41493 6 111.00 mg/dL 79576 012 20695 0 111.00 mg/dL 99665 012 10844 5 98.40 Tympanic 83760 012 45626 6 114.00 mg/dL 87353 013 79950 4 74.00 mm[Hg] - Sitting 112.00 mm[Hg] - Sitting 98.40 Tympanic 70.00/ min 18.00/min 39632 013 90858 8 244.00 mg/dL 85696 013 37749 7 244.00 mg/dL 74711 013 32628 1 244.00 mg/dL 07480 013 33082 1 98.20 Tympanic 97989 013 25372 7 72.00 mm[Hg] - Sitting 119.00 mm[Hg] - Sitting 76.00/ min 20494 013 05409 7 253.00 mg/dL 93877 013 08452 4 253.00 mg/dL 58306 013 18539 9 156.00 mg/dL 96595 013 06225 5 156.00 mg/dL 81982 013 09991 4 97.90 Tympanic 69396 013 77083 5 189.00 mg/dL 20264 014 21427 9 98.10 Tympanic 40132 014 18825 0 61.00 mm[Hg] - Sitting 139.00 mm[Hg] - Sitting 98.20 Forehead Scan 99.00 % 66.00/ min 18.00/min 82429 014 91815 3 169.00 mg/dL 51566 014 82059 3 98.10 Tympanic 04058 014 20113 3 75.00 mm[Hg] - Sitting 121.00 mm[Hg] - Sitting 71.00/ min 91997 014 88205 9 221.00 mg/dL 46172 014 23545 9 62.00 mg/dL 98620 014 44932 5 62.00 mg/dL 83475 014 66585 8 156.00 mg/dL 43878 014 20211 6 98.10 Tympanic 02205 014 75029 7 156.00 mg/dL 59454 015 00669 4 49999 015 48703 7 62.00 mm[Hg] - Sitting 142.00 mm[Hg] - Sitting 98.20 Tympanic 99.00 % 67.00/ min 18.00/min 02074 015 50926 9 120.00 mg/dL 98665 015 46630 7 98.00 Tympanic 43491 015 16889 2 82.00 mm[Hg] - Sitting 119.00 /min 11789 015 25486 9 110.00 mg/dL 85537 015 89661 6 104.00 mg/dL 57442 015 44543 0 100.00 mg/dL 53623 015 60110 2 98.10 Tympanic 21199 015 65086 6 100.00 mg/dL 08536 016 58391 2 67.00 mm[Hg] - Sitting 147.00 mm[Hg] - Sitting 99.00 Tympanic 99.00 % 78.00/ min 20.00/min 74497 016 67338 5 158.00 mg/dL 81635 016 38023 1 158.00 mg/dL 00654 016 37465 2 158.00 mg/dL 52846 016 53006 0 66.00 mm[Hg] - Sitting 121.00 mm[Hg] - Sitting 74.00/ min 74446 016 40734 1 97.00 mg/dL 60738 016 81902 5 97.00 mg/dL 06307 016 15790 4 78.00 mg/dL 87604 016 67704 6 78.00 mg/dL 17367 016 91176 5 248.00 mg/dL 73817 016 22797 8 248.00 mg/dL 92539 017 72937 3 54.00 mm[Hg] - Sitting 142.00 mm[Hg] - Sitting 98.30 Tympanic 99.00 % 76.00/ min 18.00/min 90506 017 22268 4 267.00 mg/dL 03417 017 00855 6 73.00 mm[Hg] - Sitting 109.00 mm[Hg] - Sitting 70.00/ min 12777 017 89855 1 184.00 mg/dL 71822 017 73816 5 184.00 mg/dL 17356 017 80855 9 248.00 mg/dL 28274 017 68945 8 299.00 mg/dL 56253 017 97180 3 299.00 mg/dL 77855 018 32063 7 50.00 mm[Hg] - Sitting 125.00 mm[Hg] - Sitting 98.30 Tympanic 98.00 % 76.00/ min 16.00/min 68533 018 64893 3 168.00 mg/dL 04218 018 93913 0 75.00 mm[Hg] - Sitting 121.00 mm[Hg] - Sitting 70.00/ min 53843 018 84894 7 264.00 mg/dL 95817 018 20723 6 132.00 mg/dL 95598 018 39633 6 154.00 mg/dL 88382 018 75740 6 154.00 mg/dL 85103 019 70105 4 63.00 mm[Hg] - Sitting 147.00 mm[Hg] - Sitting 98.50 Tympanic 99.00 % 69.00/ min 18.00/min 42161 019 98336 9 159.00 mg/dL 36634 019 20159 8 73.00 mm[Hg] - Sitting 110.00 mm[Hg] - Sitting 72.00/ min 57390 019 68949 4 191.00 mg/dL 74176 019 41169 8 70.00 mg/dL 63623 019 41292 4 70.00 mg/dL 46784 019 87958 6 198.00 mg/dL 55137 019 93410 0 198.00 mg/dL 61535 020 30538 2 59.00 mm[Hg] - Sitting 131.00 mm[Hg] - Sitting 98.90 Tympanic 99.00 % 69.00/ min 18.00/min 20443 020 07902 7 299.00 mg/dL 04913 020 05269 0 62.00 mm[Hg] - Sitting 132.00 mm[Hg] - Sitting 68.00/ min 37009 020 06148 3 299.00 mg/dL 72715 020 23756 3 299.00 mg/dL 76966 020 17575 9 220.00 mg/dL 44564 020 54825 1 220.00 mg/dL 80746 020 16424 1 270.00 mg/dL 82614 020 14360 4 270.00 mg/dL 82190 020 82417 9 143.00 mg/dL 73741 020 69677 4 143.00 mg/dL 12167 021 93055 0 59.00 mm[Hg] - Sitting 121.00 mm[Hg] - Sitting 98.40 Forehead Scan 98.00 % 70.00/ min 16.00/min 71499 021 82150 0 140.00 mg/dL 13655 021 86237 0 67.00 mm[Hg] - Sitting 130.00 mm[Hg] - Sitting 68.00/ min 01290 021 38029 8 140.00 mg/dL 11779 021 99298 6 140.00 mg/dL 64732 021 96740 8 156.00 mg/dL 67300 021 22480 1 156.00 mg/dL 00476 021 70037 5 146.00 mg/dL 40886 021 73121 4 146.00 mg/dL 12391 021 00154 5 183.00 mg/dL 54109 021 54205 2 183.00 mg/dL 12401 022 08087 3 69676 022 32519 1 43.00 mm[Hg] - Sitting 113.00 mm[Hg] - Sitting 97.80 Tympanic 97.00 % 64.00/ min 18.00/min 98602 022 84608 6 270.00 mg/dL 46147 022 84501 5 68.00 mm[Hg] - Sitting 122.00 mm[Hg] - Sitting 67.00/ min 73375 022 87042 9 270.00 mg/dL 96091 022 64863 4 270.00 mg/dL 27666 022 22499 4 207.00 mg/dL 81061 022 83894 8 207.00 mg/dL 16974 022 36408 9 217.00 mg/dL 55037 022 03576 2 217.00 mg/dL 46619 022 69963 0 192.00 mg/dL 31142 022 05176 9 192.00 mg/dL 52222 023 10266 8 48.00 mm[Hg] - Sitting 116.00 mm[Hg] - Sitting 98.50 Tympanic 97.00 % 63.00/ min 18.00/min 49253 023 60008 9 68.00 mm[Hg] - Sitting 131.00 mm[Hg] - Sitting 68.00/ min 79960 023 25957 8 235.00 mg/dL 99115 023 15291 4 235.00 mg/dL 72664 023 16881 0 235.00 mg/dL 72648 023 54724 0 199.00 mg/dL 54141 023 53045 7 199.00 mg/dL 73364 023 68090 4 233.00 mg/dL 67684 023 52681 3 233.00 mg/dL 38164 023 09733 6 229.00 mg/dL 47108 023 03047 4 229.00 mg/dL 85758 024 50245 3 58.00 mm[Hg] - Sitting 102.00 mm[Hg] - Sitting 58.00/ min 89456 024 92427 9 156.00 mg/dL 56247 024 46313 4 156.00 mg/dL 25058 024 65420 3 156.00 mg/dL 06211 024 48212 0 343.00 mg/dL 24608 024 63301 6 343.00 mg/dL 72002 024 97280 2 167.00 mg/dL 16910 024 22014 0 167.00 mg/dL 11196 024 09393 8 155.00 mg/dL 26714 024 61808 7 155.00 mg/dL 45775 025 59416 0 51.00 mm[Hg] - Lying Down 109.00 mm[Hg] - Lying Down 98.60 Tympanic 95.00 % 67.00/ min 20.00/min 45496 025 66082 0 60.00 mm[Hg] - Sitting 118.00 mm[Hg] - Sitting 98.30 Forehead Scan 98.00 % 68.00/ min 16.00/min 37955 025 68114 3 235.00 mg/dL 99534 025 63164 1 63.00 mm[Hg] - Sitting 110.00 mm[Hg] - Sitting 75.00/ min 86370 025 73187 9 295.00 mg/dL 27365 025 33142 4 94.00 mg/dL 16217 025 71667 1 132.00 mg/dL 93087 025 31417 2 132.00 mg/dL 71737 026 73692 8 50.00 mm[Hg] - Sitting 123.00 mm[Hg] - Sitting 98.50 Tympanic 95.00 % 66.00/ min 18.00/min 09989 026 85257 0 275.00 mg/dL 37297 026 96204 7 275.00 mg/dL 31507 026 84558 1 275.00 mg/dL 81026 026 01805 6 67.00 mm[Hg] - Sitting 123.00 mm[Hg] - Sitting 66.00/ min 74280 026 39133 3 187.00 mg/dL 43047 026 97392 5 187.00 mg/dL 72868 026 01339 0 167.00 mg/dL 60983 026 62871 8 167.00 mg/dL 13237 026 82842 6 387.00 mg/dL 06732 027 48515 7 53.00 mm[Hg] - Sitting 132.00 mm[Hg] - Sitting 98.60 Tympanic 97.00 % 64.00/ min 18.00/min 09605 027 78836 9 189.00 mg/dL 36221 027 82505 4 67.00 mm[Hg] - Sitting 118.00 mm[Hg] - Sitting 66.00/ min 35466 027 89288 2 189.00 mg/dL 99984 027 65133 7 189.00 mg/dL 07751 027 36761 1 105.00 mg/dL 08486 027 45862 8 105.00 mg/dL 77176 027 52715 4 223.00 mg/dL 51842 027 20002 9 223.00 mg/dL 44296 027 66700 9 164.00 mg/dL 91460 028 60181 0 68.00 mm[Hg] - Sitting 115.00 mm[Hg] - Sitting 98.60 Forehead Scan 96.00 % 71.00/ min 16.00/min 64073 028 80939 1 200.00 mg/dL 15756 028 55125 9 200.00 mg/dL 50904 028 81087 1 69.00 mm[Hg] - Sitting 122.00 mm[Hg] - Sitting 67.00/ min 71890 028 86740 3 200.00 mg/dL 84978 028 55379 0 117.00 mg/dL 028 68246 0 117.00 mg/dL 028 95830 1 114.00 mg/dL 028 17954 7 114.00 mg/dL 028 09941 0 179.00 mg/dL 028 73781 8 179.00 mg/dL 029 77553 9 147.00 mg/dL 029 06645 0 147.00 mg/dL 029 62037 4 147.00 mg/dL 029 54276 1 63.00 mm[Hg] - Sitting 118.00 mm[Hg] - Sitting 74.00/ min 029 15231 2 278.00 mg/dL 029 10788 3 278.00 mg/dL Immunizations Vaccine Date Status COVID-19 09/20/2023 Completed Influenza 09/14/2024 Completed Other 10/08/2023 Completed Shingles 05/27/2011 Completed Tetanus 04/13/2022 Completed TDaP 04/13/2022 Completed Shingles 2 10/05/2018 Completed
--- OUTSIDE RECORDS SUMMARY | 2024-10-03 10:58 | External Medical Summary | Continuity Of Care Document ---
Author Name Unknown Address [address] [id number] Organization [facility] () Care Team Providers Care Switch Tender Name Role Phone DO Machado Amy Primary Care Provider [phone] Allergies Allergy Reaction Start Date End Date [...] 3 0.1 mL 08/29 Inactiv e 2023 14421 88589 0 1 time Intrad ermal False Tubersol 5 tub. unit/0.1 mL intradermal injection solution [Tuberculin PPD] 0.1mL Intradermal 1 time For PPD 2nd Step Give 2nd Step PPD Day 1 and Read results Day 3 (schedule 7 days after 1st READ) 0.1mL 09/08 Inactiv e 2023 31280 38258 0 1 time Intrad ermal False [facility] - Nurse initials indicate verificatio n that [id number] vaccine was administere d by [facility] [...] order For Diabetes 08/25 Inactiv e 2023 98780 68812 9 4 times a day Subcut aneous False Aspirin 325 mg tablet [generic] 325 By Mouth Twice daily For Anticoagulati on 325 09/25 Active 2023 21404 30577 1 Twice daily By Mouth False Ferrous sulfate 325 mg (65 mg iron) tablet [generic] 325 By Mouth Once daily For anemia 325 2023 Active 2023 87664 22103 5 Once daily By Mouth False Linezolid 600 mg tablet [generic] 600 mg By Mouth Every 12 hours For MRSA INFECTION L BKA 600 mg 08/25 Inactiv e 2023 92977 66193 1 Every 12 hours By Mouth False Cefpodoxime 200 mg tablet [generic] 400 mg By Mouth Twice daily For MRSA INFECTION L BKA 400 mg 08/25 Inactiv e 2023 74035 29320 0 Twice daily By Mouth False Coenzyme Q10 100 mg tablet [generic] 100 mg By Mouth Once daily For SUPP 100 mg 2023 Active 2023 13300 97303 0 Once daily By Mouth False Levothyroxi ne 50 mcg tablet [generic] 50mcg By Mouth Once daily For hypothyroidis m 50mcg 2023 Active 2023 68628 34815 0 Once daily By Mouth False One A Day Men Complete 240 mcg-25 mcg-300 mcg tablet 1 tab By Mouth Once daily For supplement 1 tab 2023 Active 2023 80635 11171 1 Once daily By Mouth False Cholecalcif adalberto (vitamin D3) 50 mcg (2,000 unit) tablet [generic] 1 TAB By Mouth Once daily For SUPP 1 TAB 2023 Active 2023 80090 24380 1 Once daily By Mouth False Cetirizine 10 mg tablet [generic] 1 TAB By Mouth At bedtime For Allergies 1 TAB 2023 Active 2023 83174 15974 0 At bedtime By Mouth False Timolol maleate 0.25 % eye drops [generic] 1 drop Both Eyes Twice daily For glaucoma 1 drop 2023 Active 2023 02894 29829 5 Twice daily Both Eyes False Alendronate 35 mg tablet [generic] 35mg By Mouth Every week For SIADH 35mg 08/31 Inactiv e 2023 17152 91896 5 Every week By Mouth False Lantus Solostar U-100 Insulin 100 unit/mL (3 mL) subcutaneou s pen 18 units Subcutaneous Every morning For DIABETES 18 units 08/25 Inactiv e 2023 93090 00035 0 Every morning Subcut aneous False Lantus Solostar U-100 Insulin 100 unit/mL (3 mL) subcutaneou s pen 18 units Subcutaneous Every morning For DIABETES 18 units 2023 Active 2023 86613 93306 0 Every morning Subcut aneous False Linezolid 600 mg tablet [generic] 600 mg By Mouth Every 12 hours For MRSA INFECTION L BKA 600 mg 08/28 Inactiv e 2023 35616 05987 1 Every 12 hours By Mouth False [...] order For Diabetes 08/31 Inactiv e 2023 54698 29845 9 4 times a day Subcut aneous False Cefpodoxime 200 mg tablet [generic] 400 mg By Mouth Twice daily For MRSA INFECTION L BKA 400 mg 08/28 Inactiv e 2023 83021 33297 0 Twice daily By Mouth False Brimonidine 0.1 % eye drops [generic] 1 drop Both Eyes Twice daily For glaucoma 1 drop 2023 Active 2023 93262 36501 0 Twice daily Both Eyes False Metoprolol succinate ER 50 mg tablet,exte nded release 24 hr [generic] 50 mg By Mouth Once daily HOLD FOR SBP <100, or pulse <60 For HTN 50 mg 2023 Active 2023 50599 82988 1 Once daily By Mouth False Amlodipine 2.5 mg tablet [generic] 2.5 mg By Mouth Once daily For HTN 2.5 mg 2023 Active 2023 73726 95371 5 Once daily By Mouth False Docusate sodium 100 mg capsule [generic] 100mg By Mouth Twice daily as needed For constipation HOLD FOR LOOSE STOOLS 100mg 2023 Active 2023 13329 67616 1 Twice daily as needed By Mouth False Atorvastati n 40 mg tablet [generic] 40mg By Mouth Once daily For HDL 40mg 08/26 Inactiv e 2023 69526 61835 5 Once daily By Mouth False Tylenol 325 mg tablet 2 tabs By Mouth Every 4 hours as needed For Pain DO NOT EXCEED 3000 MG APAP/24 Hours 2 tabs 2023 Active 2023 84873 35802 0 Every 4 hours as needed By Mouth False Tylenol 325 mg tablet 2 tabs By Mouth Every 4 hours as needed For Fever >100 DO NOT EXCEED 3000 MG APAP/24 Hours 2 tabs 2023 Active 2023 21988 32881 0 Every 4 hours as needed By Mouth False Dulcolax (bisacodyl) 10 mg rectal suppository One Suppository per rectum PRN if Milk of Magnisia ineffective. Give on day 5 of no BM 1 sup 2023 Active 2023 42469 39166 1 Daily as needed Rectal False Fleet Enema 19 gram-7 gram/118 mL Administer per rectum PRN one time if dulcolax suppository not effective. Give on day 6 of no BM 1 2023 Active 2023 75537 76256 6 Daily as needed Rectal False Dextrose 50 % in water (D50W) intravenous solution [generic] Dextrose 50% evonne 20-50 ml (slow push) Intravenous if Glucagon not effective after 15 minutes. CALL 911 for ED Evaluation. 50% evonne 2023 Active 2023 78636 45213 9 Intrav enous False Glucagon (HCl) Emergency Kit 1 mg solution for injection Administer Glucagon 1 mg Intramuscular if 15 minutes after GLucose Gel is administered Glucose remains less than 70 1 mg 2023 Active 2023 82635 29422 2 Intram uscula r False Glucose Gel 40 % oral gel [Dextrose] PRN If resident is unable to swallow (with or without symptoms) and Glucose results less than 70 give GLucose 40% Gel 1 tube orally - Recheck Glucose 15 minutes after administratio n. 1 tube 2023 Active 2023 80259 12668 8 By Mouth False Milk of Magnesia 400 mg/5 mL oral suspension [Magnesium hydroxide] PRN 30ml By Mouth Daily as needed for constipation one time daily if no BM, on day 4 of no BM (PRN refer to instructions) For Constipation 30 mL 2023 Active 2023 18858 13722 6 Daily as needed By Mouth False Atorvastati n 40 mg tablet [generic] 08/26 Inactiv e 2023 72555 49333 5 Atorvastati n 40 mg tablet [generic] 40mg By Mouth Once daily For HDL 40mg 2023 Active 2023 18887 99030 5 Once daily By Mouth False Insulin aspart (U-100) 100 unit/mL (3 mL) subcutaneou s pen [generic] 15 units Subcutaneous 1 time For dm 15 units 08/26 Inactiv e 2023 53693 87417 5 1 time Subcut aneous False Humalog KwikPen (U-100) Insulin 100 unit/mL subcutaneou s 15 units Subcutaneous 1 time For dm 15 units 08/27 Inactiv e 2023 19369 07597 9 1 time Subcut aneous False Linezolid 600 mg tablet [generic] 600 mg By Mouth Every 12 hours For MRSA INFECTION L BKA 600 mg 09/06 Inactiv e 2023 88080 97779 1 Every 12 hours By Mouth False Cefpodoxime 200 mg tablet [generic] 400 mg By Mouth Twice daily For MRSA INFECTION L BKA 400 mg 08/31 Inactiv e 2023 55877 53397 0 Twice daily By Mouth False Senna 8.6 mg tablet 8.6 mg By Mouth Once daily For Constipation 8.6 mg 09/07 Inactiv e 2023 12506 91757 1 Once daily By Mouth False Humalog [...] abnormalities . Per Carb 2023 Active 2023 27505 39729 9 4 times a day Subcut aneous False Alendronate 35 mg tablet [generic] 08/31 Inactiv e 2023 85731 41463 5 Alendronate 35 mg tablet [generic] 35mg By Mouth Every week For Osteoporosis 35mg 202300 /0000 Active 2023 52878 81996 5 Every week By Mouth False ProSource 10 gram-100 kcal/30 mL oral liquid 30 ml By Mouth Once daily For wound healing 30 ml 2023 Active 2023 09783 86001 2 Once daily By Mouth False Clotrimazol e 1 % topical cream [generic] 1 applicaiton Topical Twice daily For tinea, apply to groin rash after cleansing and throughouly drying. Can discontinue order 3 days after rash resolves. 1 applica stacy 09/08 Inactiv e 2023 81167 78910 0 Twice daily Topica l False MAGIC MIX 1:1:1:1 : ZINC OXIDE EXTERNAL OINTMENT 40%; HYDROCOTISO NE EXTERNAL CREAM 1%; NYSTATIN EXTERNAL CREAM 480985I/GM; SILVADENE CREAM 1% Every shift Apply topically to MASD area on coccyx/buttoc ks each shift and as needed for incontinence care For MASD on coccyx layer 2023 Active 2023 Every shift Topica l False Senna 8.6 mg tablet 8.6 mg By Mouth Once daily For Constipation 8.6 mg 09/07 Inactiv e 2023 07608 54864 1 Once daily By Mouth False Senna 8.6 mg tablet 8.6 mg By Mouth Once daily As Needed For Constipation 8.6 mg 2023 Active 2023 65917 09096 1 Once daily By Mouth False BD AutoShield Duo Pen Needle 30 gauge x 3/16in 1 pen needle Subcutaneous 4 times a day For DM 1 pen needle 2023 Active 2023 84739 84486 5 4 times a day Subcut aneous False Hydrocortis one 1 % topical ointment [generic] 1 application Topical Twice daily For tinea *mix 1:1 with clotrimazole cream and apply to clean/dry groin rash 1 applica peggy 09/19 Active 2023 36835 95984 6 Twice daily Topica l False Clotrimazol e 1 % topical cream [generic] 1 applicaiton Topical Twice daily For tinea, apply to groin rash after cleansing and throughouly drying. MIX WITH HYDROCORTISON E Can discontinue order 3 days after rash resolves. 1 applica stacy 2023 Active 2023 79952 51003 0 Twice daily Topica l False Humalog KwikPen (U-100) Insulin 100 unit/mL subcutaneou s 08/31 Inactiv e 2023 71954 74015 9 MediHoney HCS 4 1/2in X 4 1/2in bandage Cleanse area with NSS, [facility] hydrocolloid dressing, non adherent dressing, kerlix secure with paper tape daily. 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 08/25/2024 Active [...] weight Temperature SpO2 Blood Sugar Pulse Respirations 68388 8 67.00 mm[Hg] - Sitting 145.00 mm[Hg] - Sitting 98.50 Forehead Scan 96.00 % 81.00/ min 16.00/min 004 76903 2 67.00 mm[Hg] - Sitting 145.00 mm[Hg] - Sitting 98.50 Tympanic 81.00/ min 16.00/min 004 41728 5 56.00 mm[Hg] - Sitting 142.00 mm[Hg] - Sitting 136.40 NI 100.20 Tympanic 96.00 % 92.00/ min 18.00/min 62980 004 38556 6 48116 004 79396 4 143.00 mg/dL 83543 0 97.80 Tympanic 005 65904 7 60.00 mm[Hg] - Sitting 140.00 mm[Hg] - Sitting 98.00 Tympanic 84.00/ min 18.00/min 87823 005 57914 0 63.00 mm[Hg] - Sitting 141.00 mm[Hg] - Sitting 98.20 Tympanic 92.00 % 63.00/ min 16.00/min 04043 005 49697 8 69.00 mm[Hg] - Sitting 106.00 mm[Hg] - Sitting 97.20 Tympanic 005 99404 7 69.00/ min 16.00/min 95193 005 01820 3 69.00 mm[Hg] - Sitting 106.00 mm[Hg] - Sitting 98.20 Tympanic 69.00/ min 16.00/min 27328 005 00501 1 367.00 mg/dL 19619 005 04373 2 97.20 Tympanic 17263 005 44802 4 97.20 Tympanic 81735 005 84154 0 69.00 mm[Hg] - Sitting 106.00 mm[Hg] - Sitting 69.00/ min 44611 005 03097 3 452.00 mg/dL 48308 005 20390 3 452.00 mg/dL 32977 005 85944 5 352.00 mg/dL 04827 005 89814 3 352.00 mg/dL 37293 005 09433 7 98.20 Tympanic 00746 005 3 101.00 mg/dL 62366 005 8 101.00 mg/dL 55101 006 54276 4 66.00 mm[Hg] - Sitting 107.00 mm[Hg] - Sitting 98.00 Tympanic 66.00/ min 18.00/min 10237 006 34173 0 62.00 mm[Hg] - Sitting 162.00 mm[Hg] - Sitting 98.20 Tympanic 96.00 % 60.00/ min 16.00/min 08202 006 70708 4 62.00 mm[Hg] - Sitting 162.00 mm[Hg] - Sitting 98.00 Tympanic 70.00/ min 18.00/min 11797 006 19634 8 62.00 mm[Hg] - Sitting 162.00 mm[Hg] - Sitting 98.20 Tympanic 70.00/ min 18.00/min 89273 006 13773 2 66.00 mm[Hg] - Sitting 132.00 mm[Hg] - Sitting 98.60 Tympanic 74.00/ min 16.00/min 75106 006 71939 5 159.00 mg/dL 77971 006 08075 1 159.00 mg/dL 55427 006 70334 8 98.00 Tympanic 36134 006 80767 2 62.00 mm[Hg] - Sitting 162.00 mm[Hg] - Sitting 70.00/ min 55564 006 29387 7 264.00 mg/dL 21633 006 81560 7 264.00 mg/dL 69524 006 76188 4 196.00 mg/dL 66359 006 83658 3 98.20 Tympanic 08963 006 09658 6 271.00 mg/dL 83443 007 56771 3 97.20 Tympanic 33743 007 60555 2 63.00 mm[Hg] - Sitting 132.00 mm[Hg] - Sitting 98.50 Tympanic 94.00 % 66.00/ min 16.00/min 90573 007 63912 5 188.00 mg/dL 20794 007 87298 2 188.00 mg/dL 00012 007 81156 2 188.00 mg/dL 44758 007 90187 7 97.20 Tympanic 45604 007 00803 6 97.20 Tympanic 15747 007 29339 5 67.00 mm[Hg] - Sitting 152.00 mm[Hg] - Sitting 68.00/ min 44063 007 13328 0 141.00 mg/dL 43238 007 01769 3 141.00 mg/dL 34873 007 12846 1 366.00 mg/dL 38384 007 45835 7 366.00 mg/dL 16218 007 48943 7 98.00 Tympanic 17724 007 52473 6 324.00 mg/dL 06217 007 80413 3 98.00 Tympanic 55133 007 54938 7 324.00 mg/dL 17611 008 76686 0 98.00 Tympanic 44949 008 47930 2 97.90 Tympanic 11341 008 20126 0 98.20 Tympanic 10107 008 93215 0 73.00 mm[Hg] - Sitting 156.00 mm[Hg] - Sitting 98.60 Tympanic 99.00 % 66.00/ min 20.00/min 98968 008 86158 5 137.00 mg/dL 76360 008 04718 7 137.00 mg/dL 65438 008 17077 2 97.90 Tympanic 15986 008 75949 1 137.00 mg/dL 44387 008 36858 8 97.90 Tympanic 12971 008 92695 5 67.00 mm[Hg] - Sitting 124.00 /min 45018 008 24951 6 212.00 mg/dL 63330 008 84145 6 212.00 mg/dL 85650 008 76409 9 317.00 mg/dL 42763 008 34324 4 317.00 mg/dL 69067 008 29813 8 252.00 mg/dL 61783 008 54750 0 98.70 Tympanic 28298 008 63789 7 252.00 mg/dL 34588 008 42236 3 98.70 Tympanic 30660 009 92841 9 98.70 Tympanic 04970 009 24816 3 98.20 Tympanic 43960 009 68323 5 98.40 Tympanic 54269 009 49620 5 57.00 mm[Hg] - Sitting 129.00 mm[Hg] - Sitting 98.30 Tympanic 97.00 % 65.00/ min 18.00/min 46081 009 84182 1 255.00 mg/dL 91645 009 50286 4 255.00 mg/dL 80404 009 10061 5 98.20 Tympanic 89079 009 71036 0 255.00 mg/dL 43302 009 64181 0 98.20 Tympanic 02257 009 80852 4 63.00 mm[Hg] - Lying Down 102.00 mm[Hg] - Lying Down 58.00/ min 59180 009 71809 0 167.00 mg/dL 24086 009 40304 1 167.00 mg/dL 37068 009 76379 2 164.00 mg/dL 88394 009 95531 1 164.00 mg/dL 48164 009 35644 5 208.00 mg/dL 11753 010 31690 3 98.40 Tympanic 43901 010 29146 5 98.40 Tympanic 45506 010 84986 7 66 NI 04003 010 53391 4 60.00 mm[Hg] - Sitting 143.00 mm[Hg] - Sitting 98.90 Tympanic 98.00 % 67.00/ min 18.00/min 65595 010 32601 2 214.00 mg/dL 33459 010 10331 0 214.00 mg/dL 11013 010 84644 7 214.00 mg/dL 00362 010 61734 6 64.00 mm[Hg] - Sitting 110.00 mm[Hg] - Sitting 72.00/ min 09144 010 70850 7 98.40 Tympanic 19331 010 14165 1 212.00 mg/dL 05180 010 79075 2 212.00 mg/dL 85957 010 01893 1 115.00 mg/dL 78821 010 66105 0 115.00 mg/dL 14368 010 63283 4 98.50 Tympanic 45371 010 25865 4 150.00 mg/dL 99850 010 11928 0 150.00 mg/dL 45692 011 90712 9 98.60 Tympanic 31733 011 69977 1 67.00 mm[Hg] - Sitting 144.00 mm[Hg] - Sitting 98.20 Tympanic 98.00 % 61.00/ min 18.00/min 47009 011 58111 7 290.00 mg/dL 71676 011 90462 2 290.00 mg/dL 16443 011 55715 2 290.00 mg/dL 45275 011 99752 7 54.00 mm[Hg] - Sitting 136.00 mm[Hg] - Sitting 101.00 /min 73603 011 79471 7 98.60 Tympanic 33251 011 65186 5 240.00 mg/dL 14707 011 28928 1 240.00 mg/dL 47813 011 97031 1 156.00 mg/dL 86950 011 48556 9 156.00 mg/dL 35852 011 51731 0 97.80 Tympanic 16356 011 34609 8 343.00 mg/dL 43332 012 75417 9 97.90 Tympanic 18718 012 71259 2 466.00 mg/dL 47306 012 53925 1 466.00 mg/dL 16163 012 35145 3 466.00 mg/dL 84488 012 63755 8 97.90 Tympanic 48578 012 19708 8 56.00 mm[Hg] - Sitting 96.00 mm[Hg] - Sitting 61.00/ min 18902 012 19419 7 350.00 mg/dL 49787 012 86618 5 350.00 mg/dL 56412 012 89322 6 111.00 mg/dL 57046 012 57484 0 111.00 mg/dL 30407 012 24789 5 98.40 Tympanic 24816 012 76917 6 114.00 mg/dL 99458 013 65747 4 74.00 mm[Hg] - Sitting 112.00 mm[Hg] - Sitting 98.40 Tympanic 70.00/ min 18.00/min 20094 013 99149 8 244.00 mg/dL 03013 013 60861 7 244.00 mg/dL 58150 013 52083 1 244.00 mg/dL 19408 013 65801 1 98.20 Tympanic 00104 013 57104 7 72.00 mm[Hg] - Sitting 119.00 mm[Hg] - Sitting 76.00/ min 78561 013 78389 7 253.00 mg/dL 25901 013 45495 4 253.00 mg/dL 84040 013 04311 9 156.00 mg/dL 62235 013 18982 5 156.00 mg/dL 70153 013 50582 4 97.90 Tympanic 03761 013 09109 5 189.00 mg/dL 66037 014 97485 9 98.10 Tympanic 63929 014 71190 0 61.00 mm[Hg] - Sitting 139.00 mm[Hg] - Sitting 98.20 Forehead Scan 99.00 % 66.00/ min 18.00/min 53418 014 82092 3 169.00 mg/dL 89619 014 99442 3 98.10 Tympanic 77104 014 38641 3 75.00 mm[Hg] - Sitting 121.00 mm[Hg] - Sitting 71.00/ min 54572 014 48759 9 221.00 mg/dL 94200 014 06044 9 62.00 mg/dL 51722 014 04400 5 62.00 mg/dL 52028 014 48971 8 156.00 mg/dL 50479 014 48635 6 98.10 Tympanic 82171 014 93156 7 156.00 mg/dL 61557 015 56916 4 44573 015 89215 7 62.00 mm[Hg] - Sitting 142.00 mm[Hg] - Sitting 98.20 Tympanic 99.00 % 67.00/ min 18.00/min 18157 015 67577 9 120.00 mg/dL 53865 015 73021 7 98.00 Tympanic 78813 015 49408 2 82.00 mm[Hg] - Sitting 119.00 /min 18131 015 31125 9 110.00 mg/dL 08190 015 08098 6 104.00 mg/dL 74115 015 95230 0 100.00 mg/dL 63297 015 30083 2 98.10 Tympanic 80418 015 43155 6 100.00 mg/dL 59458 016 99679 2 67.00 mm[Hg] - Sitting 147.00 mm[Hg] - Sitting 99.00 Tympanic 99.00 % 78.00/ min 20.00/min 93514 016 00303 5 158.00 mg/dL 45165 016 94818 1 158.00 mg/dL 99913 016 26874 2 158.00 mg/dL 31400 016 19830 0 66.00 mm[Hg] - Sitting 121.00 mm[Hg] - Sitting 74.00/ min 67624 016 03296 1 97.00 mg/dL 18785 016 02603 5 97.00 mg/dL 27806 016 03965 4 78.00 mg/dL 65443 016 73025 6 78.00 mg/dL 99893 016 97758 5 248.00 mg/dL 12830 016 28032 8 248.00 mg/dL 57183 017 65114 3 54.00 mm[Hg] - Sitting 142.00 mm[Hg] - Sitting 98.30 Tympanic 99.00 % 76.00/ min 18.00/min 79890 017 56616 4 267.00 mg/dL 74509 017 60684 6 73.00 mm[Hg] - Sitting 109.00 mm[Hg] - Sitting 70.00/ min 68818 017 19894 1 184.00 mg/dL 64767 017 47322 5 184.00 mg/dL 51367 017 14410 9 248.00 mg/dL 42149 017 73428 8 299.00 mg/dL 95618 017 87990 3 299.00 mg/dL 62429 018 14979 7 50.00 mm[Hg] - Sitting 125.00 mm[Hg] - Sitting 98.30 Tympanic 98.00 % 76.00/ min 16.00/min 03223 018 24209 3 168.00 mg/dL 74568 018 82797 0 75.00 mm[Hg] - Sitting 121.00 mm[Hg] - Sitting 70.00/ min 02689 018 23622 7 264.00 mg/dL 27547 018 93315 6 132.00 mg/dL 60656 018 14951 6 154.00 mg/dL 80824 018 61567 6 154.00 mg/dL 57705 019 41353 4 63.00 mm[Hg] - Sitting 147.00 mm[Hg] - Sitting 98.50 Tympanic 99.00 % 69.00/ min 18.00/min 79644 019 61314 9 159.00 mg/dL 18048 019 30748 8 73.00 mm[Hg] - Sitting 110.00 mm[Hg] - Sitting 72.00/ min 86762 019 60561 4 191.00 mg/dL 08915 019 51402 8 70.00 mg/dL 79689 019 93723 4 70.00 mg/dL 96634 019 78137 6 198.00 mg/dL 34146 019 27009 0 198.00 mg/dL 71993 020 58425 2 59.00 mm[Hg] - Sitting 131.00 mm[Hg] - Sitting 98.90 Tympanic 99.00 % 69.00/ min 18.00/min 22951 020 57036 7 299.00 mg/dL 63612 020 04517 0 62.00 mm[Hg] - Sitting 132.00 mm[Hg] - Sitting 68.00/ min 21362 020 26649 3 299.00 mg/dL 91818 020 25417 3 299.00 mg/dL 74294 020 26644 9 220.00 mg/dL 32251 020 64389 1 220.00 mg/dL 16978 020 82455 1 270.00 mg/dL 41852 020 30759 4 270.00 mg/dL 97980 020 44562 9 143.00 mg/dL 65519 020 91532 4 143.00 mg/dL 13410 021 50477 0 59.00 mm[Hg] - Sitting 121.00 mm[Hg] - Sitting 98.40 Forehead Scan 98.00 % 70.00/ min 16.00/min 16553 021 50249 0 140.00 mg/dL 92445 021 81340 0 67.00 mm[Hg] - Sitting 130.00 mm[Hg] - Sitting 68.00/ min 01084 021 48103 8 140.00 mg/dL 37388 021 14636 6 140.00 mg/dL 76987 021 50310 8 156.00 mg/dL 56317 021 71445 1 156.00 mg/dL 39491 021 92020 5 146.00 mg/dL 82278 021 59233 4 146.00 mg/dL 76885 021 68053 5 183.00 mg/dL 57787 021 17146 2 183.00 mg/dL 54845 022 33576 3 33768 022 65707 1 43.00 mm[Hg] - Sitting 113.00 mm[Hg] - Sitting 97.80 Tympanic 97.00 % 64.00/ min 18.00/min 76228 022 62110 6 270.00 mg/dL 80225 022 35912 5 68.00 mm[Hg] - Sitting 122.00 mm[Hg] - Sitting 67.00/ min 27906 022 73295 9 270.00 mg/dL 36799 022 66630 4 270.00 mg/dL 82292 022 59793 4 207.00 mg/dL 25577 022 07303 8 207.00 mg/dL 75040 022 66658 9 217.00 mg/dL 90587 022 53799 2 217.00 mg/dL 84973 022 64448 0 192.00 mg/dL 04189 022 23048 9 192.00 mg/dL 64346 023 85805 8 48.00 mm[Hg] - Sitting 116.00 mm[Hg] - Sitting 98.50 Tympanic 97.00 % 63.00/ min 18.00/min 45482 023 48322 9 68.00 mm[Hg] - Sitting 131.00 mm[Hg] - Sitting 68.00/ min 31145 023 11208 8 235.00 mg/dL 46755 023 27341 4 235.00 mg/dL 68041 023 00409 0 235.00 mg/dL 38821 023 71918 0 199.00 mg/dL 87245 023 25654 7 199.00 mg/dL 49715 023 42589 4 233.00 mg/dL 50918 023 98891 3 233.00 mg/dL 35536 023 36463 6 229.00 mg/dL 29960 023 53322 4 229.00 mg/dL 70127 024 93728 3 58.00 mm[Hg] - Sitting 102.00 mm[Hg] - Sitting 58.00/ min 42360 024 96247 9 156.00 mg/dL 77172 024 54991 4 156.00 mg/dL 62924 024 79001 3 156.00 mg/dL 88456 024 15833 0 343.00 mg/dL 27258 024 38812 6 343.00 mg/dL 77728 024 19964 2 167.00 mg/dL 79925 024 78325 0 167.00 mg/dL 98003 024 58253 8 155.00 mg/dL 34450 024 78699 7 155.00 mg/dL 47156 025 55084 0 51.00 mm[Hg] - Lying Down 109.00 mm[Hg] - Lying Down 98.60 Tympanic 95.00 % 67.00/ min 20.00/min 15047 025 62983 0 60.00 mm[Hg] - Sitting 118.00 mm[Hg] - Sitting 98.30 Forehead Scan 98.00 % 68.00/ min 16.00/min 91290 025 66167 3 235.00 mg/dL 65193 025 47309 1 63.00 mm[Hg] - Sitting 110.00 mm[Hg] - Sitting 75.00/ min 74159 025 41612 9 295.00 mg/dL 73574 025 34965 4 94.00 mg/dL 18872 025 77080 1 132.00 mg/dL 22031 025 53446 2 132.00 mg/dL 11213 026 20372 8 50.00 mm[Hg] - Sitting 123.00 mm[Hg] - Sitting 98.50 Tympanic 95.00 % 66.00/ min 18.00/min 15245 026 27041 0 275.00 mg/dL 67710 026 73526 7 275.00 mg/dL 42018 026 41978 1 275.00 mg/dL 02187 026 23642 6 67.00 mm[Hg] - Sitting 123.00 mm[Hg] - Sitting 66.00/ min 54784 026 96336 3 187.00 mg/dL 02763 026 26844 5 187.00 mg/dL 92239 026 05249 0 167.00 mg/dL 97470 026 79725 8 167.00 mg/dL 54508 026 87213 6 387.00 mg/dL 04750 027 18539 7 53.00 mm[Hg] - Sitting 132.00 mm[Hg] - Sitting 98.60 Tympanic 97.00 % 64.00/ min 18.00/min 97098 027 64897 9 189.00 mg/dL 47306 027 28595 4 67.00 mm[Hg] - Sitting 118.00 mm[Hg] - Sitting 66.00/ min 24903 027 04262 2 189.00 mg/dL 92416 027 78329 7 189.00 mg/dL 73040 027 80836 1 105.00 mg/dL 91159 027 56254 8 105.00 mg/dL 76753 027 52577 4 223.00 mg/dL 89226 027 82784 9 223.00 mg/dL 10030 027 52740 9 164.00 mg/dL 01268 028 14849 1 200.00 mg/dL 09859 028 78701 9 200.00 mg/dL 87191 028 54529 1 69.00 mm[Hg] - Sitting 122.00 mm[Hg] - Sitting 67.00/ min 59048 028 30349 3 200.00 mg/dL 19749 028 42350 0 117.00 mg/dL 86951 028 11706 0 117.00 mg/dL 88284 028 29460 1 114.00 mg/dL 15588 028 40144 7 114.00 mg/dL Immunizations Vaccine Date Status COVID-19 09/20/2023 Completed Influenza 09/14/2024 Completed Other 10/08/2023 Completed Shingles 05/27/2011 Completed Tetanus 04/13/2022 Completed TDaP 04/13/2022 Completed Shingles 2 10/05/2018 Completed
--- OUTSIDE RECORDS SUMMARY | 2024-10-03 10:58 | External Medical Summary | Continuity Of Care Document ---
Author Name Unknown Address [address] [address] Organization [facility] () Care Team Providers Care Line Technician Name Role Phone DO Machado Amy Primary Care Provider [phone] Allergies Allergy Reaction Start Date End Date [...] 3 0.1 mL 08/29 Inactiv e 2023 82079 81531 0 1 time Intrad ermal False Tubersol 5 tub. unit/0.1 mL intradermal injection solution [Tuberculin PPD] 0.1mL Intradermal 1 time For PPD 2nd Step Give 2nd Step PPD Day 1 and Read results Day 3 (schedule 7 days after 1st READ) 0.1mL 09/08 Inactiv e 2023 56285 02221 0 1 time Intrad ermal False [facility] - Nurse initials indicate verificatio n that [id number] vaccine was administere d by [facility] [...] order For Diabetes 08/25 Inactiv e 2023 33448 27320 9 4 times a day Subcut aneous False Aspirin 325 mg tablet [generic] 325 By Mouth Twice daily For Anticoagulati on 325 09/25 Active 2023 48749 26346 1 Twice daily By Mouth False Ferrous sulfate 325 mg (65 mg iron) tablet [generic] 325 By Mouth Once daily For anemia 325 2023 Active 2023 79232 02738 5 Once daily By Mouth False Linezolid 600 mg tablet [generic] 600 mg By Mouth Every 12 hours For MRSA INFECTION L BKA 600 mg 08/25 Inactiv e 2023 86167 80677 1 Every 12 hours By Mouth False Cefpodoxime 200 mg tablet [generic] 400 mg By Mouth Twice daily For MRSA INFECTION L BKA 400 mg 08/25 Inactiv e 2023 75844 15246 0 Twice daily By Mouth False Coenzyme Q10 100 mg tablet [generic] 100 mg By Mouth Once daily For SUPP 100 mg 2023 Active 2023 36073 65766 0 Once daily By Mouth False Levothyroxi ne 50 mcg tablet [generic] 50mcg By Mouth Once daily For hypothyroidis m 50mcg 2023 Active 2023 91183 86880 0 Once daily By Mouth False One A Day Men Complete 240 mcg-25 mcg-300 mcg tablet 1 tab By Mouth Once daily For supplement 1 tab 2023 Active 2023 08519 45066 1 Once daily By Mouth False Cholecalcif adalberto (vitamin D3) 50 mcg (2,000 unit) tablet [generic] 1 TAB By Mouth Once daily For SUPP 1 TAB 2023 Active 2023 17614 64251 1 Once daily By Mouth False Cetirizine 10 mg tablet [generic] 1 TAB By Mouth At bedtime For Allergies 1 TAB 2023 Active 2023 01868 77110 0 At bedtime By Mouth False Timolol maleate 0.25 % eye drops [generic] 1 drop Both Eyes Twice daily For glaucoma 1 drop 2023 Active 2023 29108 47808 5 Twice daily Both Eyes False Alendronate 35 mg tablet [generic] 35mg By Mouth Every week For SIADH 35mg 08/31 Inactiv e 2023 31740 17089 5 Every week By Mouth False Lantus Solostar U-100 Insulin 100 unit/mL (3 mL) subcutaneou s pen 18 units Subcutaneous Every morning For DIABETES 18 units 08/25 Inactiv e 2023 12093 49780 0 Every morning Subcut aneous False Lantus Solostar U-100 Insulin 100 unit/mL (3 mL) subcutaneou s pen 18 units Subcutaneous Every morning For DIABETES 18 units 2023 Active 2023 76207 56222 0 Every morning Subcut aneous False Linezolid 600 mg tablet [generic] 600 mg By Mouth Every 12 hours For MRSA INFECTION L BKA 600 mg 08/28 Inactiv e 2023 19257 95153 1 Every 12 hours By Mouth False [...] order For Diabetes 08/31 Inactiv e 2023 31941 92299 9 4 times a day Subcut aneous False Cefpodoxime 200 mg tablet [generic] 400 mg By Mouth Twice daily For MRSA INFECTION L BKA 400 mg 08/28 Inactiv e 2023 98487 05706 0 Twice daily By Mouth False Brimonidine 0.1 % eye drops [generic] 1 drop Both Eyes Twice daily For glaucoma 1 drop 2023 Active 2023 77312 32607 0 Twice daily Both Eyes False Metoprolol succinate ER 50 mg tablet,exte nded release 24 hr [generic] 50 mg By Mouth Once daily HOLD FOR SBP <100, or pulse <60 For HTN 50 mg 2023 Active 2023 77236 99461 1 Once daily By Mouth False Amlodipine 2.5 mg tablet [generic] 2.5 mg By Mouth Once daily For HTN 2.5 mg 2023 Active 2023 47688 65764 5 Once daily By Mouth False Docusate sodium 100 mg capsule [generic] 100mg By Mouth Twice daily as needed For constipation HOLD FOR LOOSE STOOLS 100mg 2023 Active 2023 54968 60806 1 Twice daily as needed By Mouth False Atorvastati n 40 mg tablet [generic] 40mg By Mouth Once daily For HDL 40mg 08/26 Inactiv e 2023 70471 31699 5 Once daily By Mouth False Tylenol 325 mg tablet 2 tabs By Mouth Every 4 hours as needed For Pain DO NOT EXCEED 3000 MG APAP/24 Hours 2 tabs 2023 Active 2023 89024 82670 0 Every 4 hours as needed By Mouth False Tylenol 325 mg tablet 2 tabs By Mouth Every 4 hours as needed For Fever >100 DO NOT EXCEED 3000 MG APAP/24 Hours 2 tabs 2023 Active 2023 92358 61281 0 Every 4 hours as needed By Mouth False Dulcolax (bisacodyl) 10 mg rectal suppository One Suppository per rectum PRN if Milk of Magnisia ineffective. Give on day 5 of no BM 1 sup 2023 Active 2023 66655 64601 1 Daily as needed Rectal False Fleet Enema 19 gram-7 gram/118 mL Administer per rectum PRN one time if dulcolax suppository not effective. Give on day 6 of no BM 1 2023 Active 2023 91698 15376 6 Daily as needed Rectal False Dextrose 50 % in water (D50W) intravenous solution [generic] Dextrose 50% evonne 20-50 ml (slow push) Intravenous if Glucagon not effective after 15 minutes. CALL 911 for ED Evaluation. 50% evonne 2023 Active 2023 02216 78113 9 Intrav enous False Glucagon (HCl) Emergency Kit 1 mg solution for injection Administer Glucagon 1 mg Intramuscular if 15 minutes after GLucose Gel is administered Glucose remains less than 70 1 mg 2023 Active 2023 73312 76881 2 Intram uscula r False Glucose Gel 40 % oral gel [Dextrose] PRN If resident is unable to swallow (with or without symptoms) and Glucose results less than 70 give GLucose 40% Gel 1 tube orally - Recheck Glucose 15 minutes after administratio n. 1 tube 2023 Active 2023 44694 44885 8 By Mouth False Milk of Magnesia 400 mg/5 mL oral suspension [Magnesium hydroxide] PRN 30ml By Mouth Daily as needed for constipation one time daily if no BM, on day 4 of no BM (PRN refer to instructions) For Constipation 30 mL 2023 Active 2023 93417 78113 6 Daily as needed By Mouth False Atorvastati n 40 mg tablet [generic] 08/26 Inactiv e 2023 90245 13076 5 Atorvastati n 40 mg tablet [generic] 40mg By Mouth Once daily For HDL 40mg 2023 Active 2023 65709 04376 5 Once daily By Mouth False Insulin aspart (U-100) 100 unit/mL (3 mL) subcutaneou s pen [generic] 15 units Subcutaneous 1 time For dm 15 units 08/26 Inactiv e 2023 66699 72222 5 1 time Subcut aneous False Humalog KwikPen (U-100) Insulin 100 unit/mL subcutaneou s 15 units Subcutaneous 1 time For dm 15 units 08/27 Inactiv e 2023 23841 73025 9 1 time Subcut aneous False Linezolid 600 mg tablet [generic] 600 mg By Mouth Every 12 hours For MRSA INFECTION L BKA 600 mg 09/06 Inactiv e 2023 42936 09386 1 Every 12 hours By Mouth False Cefpodoxime 200 mg tablet [generic] 400 mg By Mouth Twice daily For MRSA INFECTION L BKA 400 mg 08/31 Inactiv e 2023 06131 65558 0 Twice daily By Mouth False Senna 8.6 mg tablet 8.6 mg By Mouth Once daily For Constipation 8.6 mg 09/07 Inactiv e 2023 75890 20653 1 Once daily By Mouth False Humalog [...] abnormalities . Per Carb 2023 Active 2023 37413 75664 9 4 times a day Subcut aneous False Alendronate 35 mg tablet [generic] 08/31 Inactiv e 2023 03792 02508 5 Alendronate 35 mg tablet [generic] 35mg By Mouth Every week For Osteoporosis 35mg 202300 /0000 Active 2023 71293 41297 5 Every week By Mouth False ProSource 10 gram-100 kcal/30 mL oral liquid 30 ml By Mouth Once daily For wound healing 30 ml 2023 Active 2023 36517 83336 2 Once daily By Mouth False Clotrimazol e 1 % topical cream [generic] 1 applicaiton Topical Twice daily For tinea, apply to groin rash after cleansing and throughouly drying. Can discontinue order 3 days after rash resolves. 1 applica stacy 09/08 Inactiv e 2023 97740 45226 0 Twice daily Topica l False MAGIC MIX 1:1:1:1 : ZINC OXIDE EXTERNAL OINTMENT 40%; HYDROCOTISO NE EXTERNAL CREAM 1%; NYSTATIN EXTERNAL CREAM 315807S/GM; SILVADENE CREAM 1% Every shift Apply topically to MASD area on coccyx/buttoc ks each shift and as needed for incontinence care For MASD on coccyx layer 2023 Active 2023 Every shift Topica l False Senna 8.6 mg tablet 8.6 mg By Mouth Once daily For Constipation 8.6 mg 09/07 Inactiv e 2023 87234 61160 1 Once daily By Mouth False Senna 8.6 mg tablet 8.6 mg By Mouth Once daily As Needed For Constipation 8.6 mg 2023 Active 2023 49155 38285 1 Once daily By Mouth False BD AutoShield Duo Pen Needle 30 gauge x 3/16in 1 pen needle Subcutaneous 4 times a day For DM 1 pen needle 2023 Active 2023 25957 05473 5 4 times a day Subcut aneous False Hydrocortis one 1 % topical ointment [generic] 1 application Topical Twice daily For tinea *mix 1:1 with clotrimazole cream and apply to clean/dry groin rash 1 applica peggy 09/19 Active 2023 43757 75128 6 Twice daily Topica l False Clotrimazol e 1 % topical cream [generic] 1 applicaiton Topical Twice daily For tinea, apply to groin rash after cleansing and throughouly drying. MIX WITH HYDROCORTISON E Can discontinue order 3 days after rash resolves. 1 applica stacy 2023 Active 2023 71491 54733 0 Twice daily Topica l False Humalog KwikPen (U-100) Insulin 100 unit/mL subcutaneou s 08/31 Inactiv e 2023 40137 14779 9 MediHoney HCS 4 1/2in X 4 1/2in bandage Cleanse area with NSS, apply [facility] hydrocolloid dressing, non adherent dressing, kerlix secure with paper tape daily. For wound stage III 1 2023 Active 2023 12612 68984 1 Once daily Topica l False Problems Code Description Start Date End Date Status D64.9 Anemia, unspecified 08/25/2024 Activ e I25.10 Atherosclerotic hear t disease of [place] coronary artery without angina pectoris 08/25/2024 Active [...] weight Temperature SpO2 Blood Sugar Pulse Respirations 05007 8 67.00 mm[Hg] - Sitting 145.00 mm[Hg] - Sitting 98.50 Forehead Scan 96.00 % 81.00/ min 16.00/min 004 87092 2 67.00 mm[Hg] - Sitting 145.00 mm[Hg] - Sitting 98.50 Tympanic 81.00/ min 16.00/min 004 15064 5 56.00 mm[Hg] - Sitting 142.00 mm[Hg] - Sitting 136.40 NI 100.20 Tympanic 96.00 % 92.00/ min 18.00/min 68155 004 91281 6 55837 004 00554 4 143.00 mg/dL 26403 0 97.80 Tympanic 005 57463 7 60.00 mm[Hg] - Sitting 140.00 mm[Hg] - Sitting 98.00 Tympanic 84.00/ min 18.00/min 75860 005 74169 0 63.00 mm[Hg] - Sitting 141.00 mm[Hg] - Sitting 98.20 Tympanic 92.00 % 63.00/ min 16.00/min 80000 005 48240 8 69.00 mm[Hg] - Sitting 106.00 mm[Hg] - Sitting 97.20 Tympanic 005 13189 7 69.00/ min 16.00/min 33509 005 10298 3 69.00 mm[Hg] - Sitting 106.00 mm[Hg] - Sitting 98.20 Tympanic 69.00/ min 16.00/min 09474 005 03306 1 367.00 mg/dL 30606 005 56570 2 97.20 Tympanic 56459 005 35930 4 97.20 Tympanic 31427 005 86038 0 69.00 mm[Hg] - Sitting 106.00 mm[Hg] - Sitting 69.00/ min 78233 005 96769 3 452.00 mg/dL 81010 005 97681 3 452.00 mg/dL 94098 005 16993 5 352.00 mg/dL 20960 005 07054 3 352.00 mg/dL 11142 005 87750 7 98.20 Tympanic 16556 005 3 101.00 mg/dL 47731 005 8 101.00 mg/dL 81122 006 10787 4 66.00 mm[Hg] - Sitting 107.00 mm[Hg] - Sitting 98.00 Tympanic 66.00/ min 18.00/min 34871 006 68694 0 62.00 mm[Hg] - Sitting 162.00 mm[Hg] - Sitting 98.20 Tympanic 96.00 % 60.00/ min 16.00/min 19698 006 14043 4 62.00 mm[Hg] - Sitting 162.00 mm[Hg] - Sitting 98.00 Tympanic 70.00/ min 18.00/min 62279 006 39989 8 62.00 mm[Hg] - Sitting 162.00 mm[Hg] - Sitting 98.20 Tympanic 70.00/ min 18.00/min 45291 006 31547 2 66.00 mm[Hg] - Sitting 132.00 mm[Hg] - Sitting 98.60 Tympanic 74.00/ min 16.00/min 88950 006 47431 5 159.00 mg/dL 31627 006 45363 1 159.00 mg/dL 18333 006 54786 8 98.00 Tympanic 34563 006 80695 2 62.00 mm[Hg] - Sitting 162.00 mm[Hg] - Sitting 70.00/ min 39178 006 11781 7 264.00 mg/dL 74970 006 24073 7 264.00 mg/dL 51887 006 83707 4 196.00 mg/dL 92391 006 08953 3 98.20 Tympanic 46143 006 49667 6 271.00 mg/dL 53010 007 76414 3 97.20 Tympanic 53322 007 16504 2 63.00 mm[Hg] - Sitting 132.00 mm[Hg] - Sitting 98.50 Tympanic 94.00 % 66.00/ min 16.00/min 27486 007 27010 5 188.00 mg/dL 01378 007 26991 2 188.00 mg/dL 98757 007 19833 2 188.00 mg/dL 99348 007 12729 7 97.20 Tympanic 55320 007 92901 6 97.20 Tympanic 21784 007 30359 5 67.00 mm[Hg] - Sitting 152.00 mm[Hg] - Sitting 68.00/ min 66868 007 18925 0 141.00 mg/dL 58966 007 21226 3 141.00 mg/dL 34045 007 54176 1 366.00 mg/dL 45070 007 65029 7 366.00 mg/dL 70837 007 73315 7 98.00 Tympanic 28576 007 74138 6 324.00 mg/dL 86204 007 11659 3 98.00 Tympanic 49186 007 04496 7 324.00 mg/dL 10093 008 75096 0 98.00 Tympanic 57225 008 19921 2 97.90 Tympanic 28892 008 21138 0 98.20 Tympanic 27997 008 00001 0 73.00 mm[Hg] - Sitting 156.00 mm[Hg] - Sitting 98.60 Tympanic 99.00 % 66.00/ min 20.00/min 77339 008 60453 5 137.00 mg/dL 18907 008 28262 7 137.00 mg/dL 43345 008 32005 2 97.90 Tympanic 67706 008 15143 1 137.00 mg/dL 20295 008 48893 8 97.90 Tympanic 45604 008 22464 5 67.00 mm[Hg] - Sitting 124.00 /min 00025 008 12146 6 212.00 mg/dL 71745 008 00243 6 212.00 mg/dL 83833 008 32061 9 317.00 mg/dL 24297 008 36565 4 317.00 mg/dL 22450 008 62696 8 252.00 mg/dL 19290 008 37600 0 98.70 Tympanic 57678 008 12585 7 252.00 mg/dL 40543 008 76171 3 98.70 Tympanic 25243 009 44464 9 98.70 Tympanic 50693 009 97501 3 98.20 Tympanic 32724 009 02873 5 98.40 Tympanic 84597 009 69135 5 57.00 mm[Hg] - Sitting 129.00 mm[Hg] - Sitting 98.30 Tympanic 97.00 % 65.00/ min 18.00/min 81563 009 99289 1 255.00 mg/dL 32837 009 36462 4 255.00 mg/dL 85657 009 31307 5 98.20 Tympanic 94133 009 44380 0 255.00 mg/dL 22484 009 49911 0 98.20 Tympanic 12463 009 81598 4 63.00 mm[Hg] - Lying Down 102.00 mm[Hg] - Lying Down 58.00/ min 13326 009 16472 0 167.00 mg/dL 39946 009 56152 1 167.00 mg/dL 00370 009 26521 2 164.00 mg/dL 21354 009 87983 1 164.00 mg/dL 80969 009 82012 5 208.00 mg/dL 16625 010 79065 3 98.40 Tympanic 21913 010 36109 5 98.40 Tympanic 25719 010 30635 7 [place] [address] 010 87692 4 60.00 mm[Hg] - Sitting 143.00 mm[Hg] - Sitting 98.90 Tympanic 98.00 % 67.00/ min 18.00/min 08670 010 75677 2 214.00 mg/dL 94051 010 90126 0 214.00 mg/dL 54524 010 59315 7 214.00 mg/dL 83525 010 61745 6 64.00 mm[Hg] - Sitting 110.00 mm[Hg] - Sitting 72.00/ min 53105 010 79412 7 98.40 Tympanic 24553 010 85304 1 212.00 mg/dL 10720 010 91324 2 212.00 mg/dL 08580 010 32050 1 115.00 mg/dL 26371 010 78807 0 115.00 mg/dL 43805 010 02582 4 98.50 Tympanic 29271 010 81923 4 150.00 mg/dL 57046 010 39259 0 150.00 mg/dL 77933 011 22832 9 98.60 Tympanic 26375 011 00419 1 67.00 mm[Hg] - Sitting 144.00 mm[Hg] - Sitting 98.20 Tympanic 98.00 % 61.00/ min 18.00/min 89334 011 37237 7 290.00 mg/dL 67022 011 13449 2 290.00 mg/dL 84845 011 43351 2 290.00 mg/dL 38905 011 80358 7 54.00 mm[Hg] - Sitting 136.00 mm[Hg] - Sitting 101.00 /min 79860 011 57604 7 98.60 Tympanic 07450 011 67165 5 240.00 mg/dL 59448 011 72263 1 240.00 mg/dL 33851 011 79905 1 156.00 mg/dL 08408 011 48473 9 156.00 mg/dL 96086 011 44734 0 97.80 Tympanic 37787 011 60824 8 343.00 mg/dL 32651 012 78146 9 97.90 Tympanic 84068 012 71256 2 466.00 mg/dL 04594 012 66339 1 466.00 mg/dL 98976 012 45641 3 466.00 mg/dL 48032 012 87893 8 97.90 Tympanic 99008 012 29414 8 56.00 mm[Hg] - Sitting 96.00 mm[Hg] - Sitting 61.00/ min 54288 012 74496 7 350.00 mg/dL 72799 012 96476 5 350.00 mg/dL 09923 012 98699 6 111.00 mg/dL 84919 012 95204 0 111.00 mg/dL 57856 012 59743 5 98.40 Tympanic 15423 012 29575 6 114.00 mg/dL 11166 013 24101 4 74.00 mm[Hg] - Sitting 112.00 mm[Hg] - Sitting 98.40 Tympanic 70.00/ min 18.00/min 07311 013 89839 8 244.00 mg/dL 58415 013 69886 7 244.00 mg/dL 48714 013 07968 1 244.00 mg/dL 68125 013 67089 1 98.20 Tympanic 84594 013 89766 7 72.00 mm[Hg] - Sitting 119.00 mm[Hg] - Sitting 76.00/ min 83720 013 88103 7 253.00 mg/dL 57461 013 24061 4 253.00 mg/dL 28574 013 32152 9 156.00 mg/dL 32135 013 88109 5 156.00 mg/dL 90010 013 58573 4 97.90 Tympanic 67661 013 10938 5 189.00 mg/dL 66136 014 25326 9 98.10 Tympanic 68362 014 20601 0 61.00 mm[Hg] - Sitting 139.00 mm[Hg] - Sitting 98.20 Forehead Scan 99.00 % 66.00/ min 18.00/min 54461 014 85329 3 169.00 mg/dL 19682 014 11287 3 98.10 Tympanic 66164 014 94331 3 75.00 mm[Hg] - Sitting 121.00 mm[Hg] - Sitting 71.00/ min 64706 014 73559 9 221.00 mg/dL 09284 014 74410 9 62.00 mg/dL 46768 014 78729 5 62.00 mg/dL 50329 014 84790 8 156.00 mg/dL 50141 014 48344 6 98.10 Tympanic 56368 014 43924 7 156.00 mg/dL 93787 015 51845 4 75958 015 70497 7 62.00 mm[Hg] - Sitting 142.00 mm[Hg] - Sitting 98.20 Tympanic 99.00 % 67.00/ min 18.00/min 26991 015 48657 9 120.00 mg/dL 44490 015 14005 7 98.00 Tympanic 72012 015 72017 2 82.00 mm[Hg] - Sitting 119.00 /min 44012 015 36830 9 110.00 mg/dL 35939 015 64935 6 104.00 mg/dL 94574 015 88368 0 100.00 mg/dL 19058 015 29756 2 98.10 Tympanic 60332 015 31615 6 100.00 mg/dL 31809 016 57852 2 67.00 mm[Hg] - Sitting 147.00 mm[Hg] - Sitting 99.00 Tympanic 99.00 % 78.00/ min 20.00/min 44213 016 55485 5 158.00 mg/dL 16385 016 99291 1 158.00 mg/dL 16041 016 13309 2 158.00 mg/dL 59483 016 52045 0 66.00 mm[Hg] - Sitting 121.00 mm[Hg] - Sitting 74.00/ min 75378 016 62756 1 97.00 mg/dL 92533 016 70155 5 97.00 mg/dL 30985 016 95146 4 78.00 mg/dL 97588 016 74303 6 78.00 mg/dL 08960 016 42623 5 248.00 mg/dL 93315 016 88555 8 248.00 mg/dL 64132 017 52261 3 54.00 mm[Hg] - Sitting 142.00 mm[Hg] - Sitting 98.30 Tympanic 99.00 % 76.00/ min 18.00/min 56915 017 28134 4 267.00 mg/dL 01572 017 53157 6 73.00 mm[Hg] - Sitting 109.00 mm[Hg] - Sitting 70.00/ min 73245 017 85023 1 184.00 mg/dL 52658 017 84297 5 184.00 mg/dL 09131 017 55512 9 248.00 mg/dL 81980 017 72718 8 299.00 mg/dL 09412 017 18907 3 299.00 mg/dL 62269 018 28670 7 50.00 mm[Hg] - Sitting 125.00 mm[Hg] - Sitting 98.30 Tympanic 98.00 % 76.00/ min 16.00/min 58282 018 50820 3 168.00 mg/dL 69621 018 87770 0 75.00 mm[Hg] - Sitting 121.00 mm[Hg] - Sitting 70.00/ min 44994 018 52392 7 264.00 mg/dL 52538 018 41610 6 132.00 mg/dL 81713 018 70992 6 154.00 mg/dL 97646 018 76565 6 154.00 mg/dL 58195 019 96410 4 63.00 mm[Hg] - Sitting 147.00 mm[Hg] - Sitting 98.50 Tympanic 99.00 % 69.00/ min 18.00/min 44845 019 36190 9 159.00 mg/dL 57094 019 21947 8 73.00 mm[Hg] - Sitting 110.00 mm[Hg] - Sitting 72.00/ min 87551 019 82490 4 191.00 mg/dL 25144 019 04363 8 70.00 mg/dL 54453 019 22325 4 70.00 mg/dL 87671 019 45742 6 198.00 mg/dL 06590 019 17885 0 198.00 mg/dL 04919 020 02398 2 59.00 mm[Hg] - Sitting 131.00 mm[Hg] - Sitting 98.90 Tympanic 99.00 % 69.00/ min 18.00/min 70700 020 75014 7 299.00 mg/dL 43163 020 51555 0 62.00 mm[Hg] - Sitting 132.00 mm[Hg] - Sitting 68.00/ min 44965 020 10246 3 299.00 mg/dL 25782 020 35187 3 299.00 mg/dL 62504 020 62520 9 220.00 mg/dL 12276 020 05202 1 220.00 mg/dL 48672 020 59634 1 270.00 mg/dL 63489 020 32084 4 270.00 mg/dL 27315 020 26275 9 143.00 mg/dL 65142 020 87280 4 143.00 mg/dL 33890 021 15801 0 59.00 mm[Hg] - Sitting 121.00 mm[Hg] - Sitting 98.40 Forehead Scan 98.00 % 70.00/ min 16.00/min 16205 021 85661 0 140.00 mg/dL 98653 021 18073 0 67.00 mm[Hg] - Sitting 130.00 mm[Hg] - Sitting 68.00/ min 97448 021 49611 8 140.00 mg/dL 46260 021 35510 6 140.00 mg/dL 72114 021 22787 8 156.00 mg/dL 96611 021 48805 1 156.00 mg/dL 47847 021 72022 5 146.00 mg/dL 00961 021 04855 4 146.00 mg/dL 40398 021 41903 5 183.00 mg/dL 93964 021 31938 2 183.00 mg/dL 50914 022 23257 3 36716 022 85895 1 43.00 mm[Hg] - Sitting 113.00 mm[Hg] - Sitting 97.80 Tympanic 97.00 % 64.00/ min 18.00/min 38101 022 09300 6 270.00 mg/dL 18261 022 01197 5 68.00 mm[Hg] - Sitting 122.00 mm[Hg] - Sitting 67.00/ min 76907 022 18916 9 270.00 mg/dL 35204 022 56166 4 270.00 mg/dL 73909 022 69018 4 207.00 mg/dL 23257 022 52954 8 207.00 mg/dL 15882 022 53606 9 217.00 mg/dL 13140 022 65287 2 217.00 mg/dL 14145 022 45860 0 192.00 mg/dL 80413 022 76239 9 192.00 mg/dL 74330 023 36743 8 48.00 mm[Hg] - Sitting 116.00 mm[Hg] - Sitting 98.50 Tympanic 97.00 % 63.00/ min 18.00/min 25156 023 15983 9 68.00 mm[Hg] - Sitting 131.00 mm[Hg] - Sitting 68.00/ min 15158 023 13087 8 235.00 mg/dL 59062 023 37561 4 235.00 mg/dL 58888 023 60350 0 235.00 mg/dL 92918 023 41711 0 199.00 mg/dL 55956 023 19297 7 199.00 mg/dL 43302 023 50283 4 233.00 mg/dL 68791 023 52583 3 233.00 mg/dL 40655 023 86775 6 229.00 mg/dL 60910 023 39233 4 229.00 mg/dL 80739 024 46059 3 58.00 mm[Hg] - Sitting 102.00 mm[Hg] - Sitting 58.00/ min 91654 024 37666 9 156.00 mg/dL 94484 024 20802 4 156.00 mg/dL 42903 024 82546 3 156.00 mg/dL 41721 024 02677 0 343.00 mg/dL 42519 024 13986 6 343.00 mg/dL 70279 024 15172 2 167.00 mg/dL 01616 024 55177 0 167.00 mg/dL 86548 024 39023 8 155.00 mg/dL 76443 024 38520 7 155.00 mg/dL 97585 025 20048 0 51.00 mm[Hg] - Lying Down 109.00 mm[Hg] - Lying Down 98.60 Tympanic 95.00 % 67.00/ min 20.00/min 95617 025 77847 0 60.00 mm[Hg] - Sitting 118.00 mm[Hg] - Sitting 98.30 Forehead Scan 98.00 % 68.00/ min 16.00/min 87994 025 67729 3 235.00 mg/dL 77506 025 70359 1 63.00 mm[Hg] - Sitting 110.00 mm[Hg] - Sitting 75.00/ min 47312 025 17757 9 295.00 mg/dL 82732 025 86374 4 94.00 mg/dL 28365 025 00987 1 132.00 mg/dL 28926 025 44648 2 132.00 mg/dL 86920 026 00893 8 50.00 mm[Hg] - Sitting 123.00 mm[Hg] - Sitting 98.50 Tympanic 95.00 % 66.00/ min 18.00/min 62610 026 58924 0 275.00 mg/dL 83876 026 87366 7 275.00 mg/dL 28467 026 25054 1 275.00 mg/dL 21278 026 90468 6 67.00 mm[Hg] - Sitting 123.00 mm[Hg] - Sitting 66.00/ min 20363 026 25255 3 187.00 mg/dL 00115 026 69301 5 187.00 mg/dL 00492 026 17936 0 167.00 mg/dL 99069 026 13638 8 167.00 mg/dL 54843 026 30414 6 387.00 mg/dL 02133 027 06327 7 53.00 mm[Hg] - Sitting 132.00 mm[Hg] - Sitting 98.60 Tympanic 97.00 % 64.00/ min 18.00/min 05454 027 30155 9 189.00 mg/dL 17650 027 12479 4 67.00 mm[Hg] - Sitting 118.00 mm[Hg] - Sitting 66.00/ min 63849 027 38379 2 189.00 mg/dL 68310 027 05923 7 189.00 mg/dL 65157 027 38041 1 105.00 mg/dL 29021 027 43330 8 105.00 mg/dL 78777 027 36010 4 223.00 mg/dL 86730 027 27152 9 223.00 mg/dL 71988 027 02759 9 164.00 mg/dL 81690 028 62172 1 200.00 mg/dL 73306 028 92141 9 200.00 mg/dL 43024 028 86751 1 69.00 mm[Hg] - Sitting 122.00 mm[Hg] - Sitting 67.00/ min 97357 028 69738 3 200.00 mg/dL 76902 028 17076 0 117.00 mg/dL 36513 028 00535 0 117.00 mg/dL Immunizations Vaccine Date Status COVID-19 09/20/2023 Completed Influenza 09/14/2024 Completed Other 10/08/2023 Completed Shingles 05/27/2011 Completed Tetanus 04/13/2022 Completed TDaP 04/13/2022 Completed Shingles 2 10/05/2018 Completed
--- OUTSIDE RECORDS SUMMARY | 2024-10-03 10:58 | External Medical Summary | Continuity Of Care Document ---
Author Name Unknown Address [address] [address] Organization [facility] () Care Team Providers Care Road Cleaner Name Role Phone DO Machado Amy Primary Care Provider [phone] Allergies Allergy Reaction Start Date End Date [...] 3 0.1 mL 08/29 Inactiv e 2023 27076 60627 0 1 time Intrad ermal False Tubersol 5 tub. unit/0.1 mL intradermal injection solution [Tuberculin PPD] 0.1mL Intradermal 1 time For PPD 2nd Step Give 2nd Step PPD Day 1 and Read results Day 3 (schedule 7 days after 1st READ) 0.1mL 09/08 Inactiv e 2023 83702 19003 0 1 time Intrad ermal False [facility] - Nurse initials indicate verificatio n that 5989-8670 vaccine was administere d by [facility] [...] order For Diabetes 08/25 Inactiv e 2023 91564 48062 9 4 times a day Subcut aneous False Aspirin 325 mg tablet [generic] 325 By Mouth Twice daily For Anticoagulati on 325 09/25 Active 2023 39666 00772 1 Twice daily By Mouth False Ferrous sulfate 325 mg (65 mg iron) tablet [generic] 325 By Mouth Once daily For anemia 325 2023 Active 2023 68230 43332 5 Once daily By Mouth False Linezolid 600 mg tablet [generic] 600 mg By Mouth Every 12 hours For MRSA INFECTION L BKA 600 mg 08/25 Inactiv e 2023 77661 22804 1 Every 12 hours By Mouth False Cefpodoxime 200 mg tablet [generic] 400 mg By Mouth Twice daily For MRSA INFECTION L BKA 400 mg 08/25 Inactiv e 2023 33467 60320 0 Twice daily By Mouth False Coenzyme Q10 100 mg tablet [generic] 100 mg By Mouth Once daily For SUPP 100 mg 2023 Active 2023 73652 37515 0 Once daily By Mouth False Levothyroxi ne 50 mcg tablet [generic] 50mcg By Mouth Once daily For hypothyroidis m 50mcg 2023 Active 2023 03575 47246 0 Once daily By Mouth False One A Day Men Complete 240 mcg-25 mcg-300 mcg tablet 1 tab By Mouth Once daily For supplement 1 tab 2023 Active 2023 45032 99714 1 Once daily By Mouth False Cholecalcif adalberto (vitamin D3) 50 mcg (2,000 unit) tablet [generic] 1 TAB By Mouth Once daily For SUPP 1 TAB 2023 Active 2023 19595 24502 1 Once daily By Mouth False Cetirizine 10 mg tablet [generic] 1 TAB By Mouth At bedtime For Allergies 1 TAB 2023 Active 2023 53462 64274 0 At bedtime By Mouth False Timolol maleate 0.25 % eye drops [generic] 1 drop Both Eyes Twice daily For glaucoma 1 drop 2023 Active 2023 06079 91246 5 Twice daily Both Eyes False Alendronate 35 mg tablet [generic] 35mg By Mouth Every week For SIADH 35mg 08/31 Inactiv e 2023 21721 07987 5 Every week By Mouth False Lantus Solostar U-100 Insulin 100 unit/mL (3 mL) subcutaneou s pen 18 units Subcutaneous Every morning For DIABETES 18 units 08/25 Inactiv e 2023 25589 82014 0 Every morning Subcut aneous False Lantus Solostar U-100 Insulin 100 unit/mL (3 mL) subcutaneou s pen 18 units Subcutaneous Every morning For DIABETES 18 units 2023 Active 2023 68747 69905 0 Every morning Subcut aneous False Linezolid 600 mg tablet [generic] 600 mg By Mouth Every 12 hours For MRSA INFECTION L BKA 600 mg 08/28 Inactiv e 2023 86914 86852 1 Every 12 hours By Mouth False [...] order For Diabetes 08/31 Inactiv e 2023 12311 41294 9 4 times a day Subcut aneous False Cefpodoxime 200 mg tablet [generic] 400 mg By Mouth Twice daily For MRSA INFECTION L BKA 400 mg 08/28 Inactiv e 2023 68067 19720 0 Twice daily By Mouth False Brimonidine 0.1 % eye drops [generic] 1 drop Both Eyes Twice daily For glaucoma 1 drop 2023 Active 2023 15814 93126 0 Twice daily Both Eyes False Metoprolol succinate ER 50 mg tablet,exte nded release 24 hr [generic] 50 mg By Mouth Once daily HOLD FOR SBP <100, or pulse <60 For HTN 50 mg 2023 Active 2023 39852 08438 1 Once daily By Mouth False Amlodipine 2.5 mg tablet [generic] 2.5 mg By Mouth Once daily For HTN 2.5 mg 2023 Active 2023 36469 25401 5 Once daily By Mouth False Docusate sodium 100 mg capsule [generic] 100mg By Mouth Twice daily as needed For constipation HOLD FOR LOOSE STOOLS 100mg 2023 Active 2023 71189 68533 1 Twice daily as needed By Mouth False Atorvastati n 40 mg tablet [generic] 40mg By Mouth Once daily For HDL 40mg 08/26 Inactiv e 2023 70405 53843 5 Once daily By Mouth False Tylenol 325 mg tablet 2 tabs By Mouth Every 4 hours as needed For Pain DO NOT EXCEED 3000 MG APAP/24 Hours 2 tabs 2023 Active 2023 74778 00238 0 Every 4 hours as needed By Mouth False Tylenol 325 mg tablet 2 tabs By Mouth Every 4 hours as needed For Fever >100 DO NOT EXCEED 3000 MG APAP/24 Hours 2 tabs 2023 Active 2023 91200 16848 0 Every 4 hours as needed By Mouth False Dulcolax (bisacodyl) 10 mg rectal suppository One Suppository per rectum PRN if Milk of Magnisia ineffective. Give on day 5 of no BM 1 sup 2023 Active 2023 54125 71853 1 Daily as needed Rectal False Fleet Enema 19 gram-7 gram/118 mL Administer per rectum PRN one time if dulcolax suppository not effective. Give on day 6 of no BM 1 2023 Active 2023 07113 50415 6 Daily as needed Rectal False Dextrose 50 % in water (D50W) intravenous solution [generic] Dextrose 50% evonne 20-50 ml (slow push) Intravenous if Glucagon not effective after 15 minutes. CALL 911 for ED Evaluation. 50% evonne 2023 Active 2023 64733 18237 9 Intrav enous False Glucagon (HCl) Emergency Kit 1 mg solution for injection Administer Glucagon 1 mg Intramuscular if 15 minutes after GLucose Gel is administered Glucose remains less than 70 1 mg 2023 Active 2023 23594 72290 2 Intram uscula r False Glucose Gel 40 % oral gel [Dextrose] PRN If resident is unable to swallow (with or without symptoms) and Glucose results less than 70 give GLucose 40% Gel 1 tube orally - Recheck Glucose 15 minutes after administratio n. 1 tube 2023 Active 2023 75835 09498 8 By Mouth False Milk of Magnesia 400 mg/5 mL oral suspension [Magnesium hydroxide] PRN 30ml By Mouth Daily as needed for constipation one time daily if no BM, on day 4 of no BM (PRN refer to instructions) For Constipation 30 mL 2023 Active 2023 20288 32187 6 Daily as needed By Mouth False Atorvastati n 40 mg tablet [generic] 08/26 Inactiv e 2023 16584 05744 5 Atorvastati n 40 mg tablet [generic] 40mg By Mouth Once daily For HDL 40mg 2023 Active 2023 88845 67349 5 Once daily By Mouth False Insulin aspart (U-100) 100 unit/mL (3 mL) subcutaneou s pen [generic] 15 units Subcutaneous 1 time For dm 15 units 08/26 Inactiv e 2023 44265 26787 5 1 time Subcut aneous False Humalog KwikPen (U-100) Insulin 100 unit/mL subcutaneou s 15 units Subcutaneous 1 time For dm 15 units 08/27 Inactiv e 2023 79783 49074 9 1 time Subcut aneous False Linezolid 600 mg tablet [generic] 600 mg By Mouth Every 12 hours For MRSA INFECTION L BKA 600 mg 09/06 Inactiv e 2023 54303 93061 1 Every 12 hours By Mouth False Cefpodoxime 200 mg tablet [generic] 400 mg By Mouth Twice daily For MRSA INFECTION L BKA 400 mg 08/31 Inactiv e 2023 71322 83018 0 Twice daily By Mouth False Senna 8.6 mg tablet 8.6 mg By Mouth Once daily For Constipation 8.6 mg 09/07 Inactiv e 2023 44792 26728 1 Once daily By Mouth False Humalog [...] abnormalities . Per Carb 2023 Active 2023 08679 24586 9 4 times a day Subcut aneous False Alendronate 35 mg tablet [generic] 08/31 Inactiv e 2023 85863 92750 5 Alendronate 35 mg tablet [generic] 35mg By Mouth Every week For Osteoporosis 35mg 202300 /0000 Active 2023 21994 67105 5 Every week By Mouth False ProSource 10 gram-100 kcal/30 mL oral liquid 30 ml By Mouth Once daily For wound healing 30 ml 2023 Active 2023 26552 19811 2 Once daily By Mouth False Clotrimazol e 1 % topical cream [generic] 1 applicaiton Topical Twice daily For tinea, apply to groin rash after cleansing and throughouly drying. Can discontinue order 3 days after rash resolves. 1 applica stacy 09/08 Inactiv e 2023 30762 07906 0 Twice daily Topica l False MAGIC MIX 1:1:1:1 : ZINC OXIDE EXTERNAL OINTMENT 40%; HYDROCOTISO NE EXTERNAL CREAM 1%; NYSTATIN EXTERNAL CREAM 577319Y/GM; SILVADENE CREAM 1% Every shift Apply topically to MASD area on coccyx/buttoc ks each shift and as needed for incontinence care For MASD on coccyx layer 2023 Active 2023 Every shift Topica l False Senna 8.6 mg tablet 8.6 mg By Mouth Once daily For Constipation 8.6 mg 09/07 Inactiv e 2023 28450 45620 1 Once daily By Mouth False Senna 8.6 mg tablet 8.6 mg By Mouth Once daily As Needed For Constipation 8.6 mg 2023 Active 2023 16775 64126 1 Once daily By Mouth False BD AutoShield Duo Pen Needle 30 gauge x 3/16in 1 pen needle Subcutaneous 4 times a day For DM 1 pen needle 2023 Active 2023 94951 09423 5 4 times a day Subcut aneous False Hydrocortis one 1 % topical ointment [generic] 1 application Topical Twice daily For tinea *mix 1:1 with clotrimazole cream and apply to clean/dry groin rash 1 applica peggy 09/19 Active 2023 81504 88953 6 Twice daily Topica l False Clotrimazol e 1 % topical cream [generic] 1 applicaiton Topical Twice daily For tinea, apply to groin rash after cleansing and throughouly drying. MIX WITH HYDROCORTISON E Can discontinue order 3 days after rash resolves. 1 applica stacy 2023 Active 2023 63063 97777 0 Twice daily Topica l False Humalog KwikPen (U-100) Insulin 100 unit/mL subcutaneou s 08/31 Inactiv e 2023 13048 82785 9 MediHoney HCS 4 1/2in X 4 1/2in bandage Cleanse area with NSS, [facility] hydrocolloid dressing, non adherent dressing, kerlix secure with paper tape daily. For wound stage III 1 2023 Active 2023 36290 89887 1 Once daily Topica l False Problems Code Description Start Date End Date Status D64.9 Anemia, unspecified 08/25/2024 Activ e I25.10 Atherosclerotic hear t disease of [place] coronary artery without angina pectoris 08/25/2024 Active [...] weight Temperature SpO2 Blood Sugar Pulse Respirations 45039 8 67.00 mm[Hg] - Sitting 145.00 mm[Hg] - Sitting 98.50 Forehead Scan 96.00 % 81.00/ min 16.00/min 004 74164 2 67.00 mm[Hg] - Sitting 145.00 mm[Hg] - Sitting 98.50 Tympanic 81.00/ min 16.00/min 004 49313 5 56.00 mm[Hg] - Sitting 142.00 mm[Hg] - Sitting 136.40 NI 100.20 Tympanic 96.00 % 92.00/ min 18.00/min 11087 004 56181 6 37212 004 63110 4 143.00 mg/dL 27147 0 97.80 Tympanic 005 61768 7 60.00 mm[Hg] - Sitting 140.00 mm[Hg] - Sitting 98.00 Tympanic 84.00/ min 18.00/min 39104 005 73225 0 63.00 mm[Hg] - Sitting 141.00 mm[Hg] - Sitting 98.20 Tympanic 92.00 % 63.00/ min 16.00/min 75366 005 42735 8 69.00 mm[Hg] - Sitting 106.00 mm[Hg] - Sitting 97.20 Tympanic 005 15018 7 69.00/ min 16.00/min 61494 005 93633 3 69.00 mm[Hg] - Sitting 106.00 mm[Hg] - Sitting 98.20 Tympanic 69.00/ min 16.00/min 49082 005 70832 1 367.00 mg/dL 93127 005 99363 2 97.20 Tympanic 69201 005 71149 4 97.20 Tympanic 40768 005 82865 0 69.00 mm[Hg] - Sitting 106.00 mm[Hg] - Sitting 69.00/ min 61249 005 56737 3 452.00 mg/dL 61404 005 55070 3 452.00 mg/dL 55195 005 45344 5 352.00 mg/dL 48465 005 22124 3 352.00 mg/dL 03698 005 96580 7 98.20 Tympanic 83969 005 3 101.00 mg/dL 75654 005 8 101.00 mg/dL 95586 006 79544 4 66.00 mm[Hg] - Sitting 107.00 mm[Hg] - Sitting 98.00 Tympanic 66.00/ min 18.00/min 77394 006 06136 0 62.00 mm[Hg] - Sitting 162.00 mm[Hg] - Sitting 98.20 Tympanic 96.00 % 60.00/ min 16.00/min 04233 006 07142 4 62.00 mm[Hg] - Sitting 162.00 mm[Hg] - Sitting 98.00 Tympanic 70.00/ min 18.00/min 12492 006 63551 8 62.00 mm[Hg] - Sitting 162.00 mm[Hg] - Sitting 98.20 Tympanic 70.00/ min 18.00/min 11436 006 51025 2 66.00 mm[Hg] - Sitting 132.00 mm[Hg] - Sitting 98.60 Tympanic 74.00/ min 16.00/min 01437 006 97625 5 159.00 mg/dL 06257 006 91686 1 159.00 mg/dL 57540 006 51882 8 98.00 Tympanic 46194 006 13926 2 62.00 mm[Hg] - Sitting 162.00 mm[Hg] - Sitting 70.00/ min 67419 006 15619 7 264.00 mg/dL 87594 006 64068 7 264.00 mg/dL 40209 006 40989 4 196.00 mg/dL 76257 006 13227 3 98.20 Tympanic 01191 006 93470 6 271.00 mg/dL 36098 007 24526 3 97.20 Tympanic 22485 007 23834 2 63.00 mm[Hg] - Sitting 132.00 mm[Hg] - Sitting 98.50 Tympanic 94.00 % 66.00/ min 16.00/min 90098 007 74620 5 188.00 mg/dL 44861 007 37028 2 188.00 mg/dL 74480 007 57093 2 188.00 mg/dL 57035 007 46611 7 97.20 Tympanic 70518 007 68920 6 97.20 Tympanic 04481 007 20029 5 67.00 mm[Hg] - Sitting 152.00 mm[Hg] - Sitting 68.00/ min 60209 007 15145 0 141.00 mg/dL 96300 007 61483 3 141.00 mg/dL 08615 007 53143 1 366.00 mg/dL 87794 007 99971 7 366.00 mg/dL 42555 007 31384 7 98.00 Tympanic 97296 007 91726 6 324.00 mg/dL 14818 007 80868 3 98.00 Tympanic 92867 007 79532 7 324.00 mg/dL 46852 008 92341 0 98.00 Tympanic 40482 008 43914 2 97.90 Tympanic 09756 008 62239 0 98.20 Tympanic 57308 008 48919 0 73.00 mm[Hg] - Sitting 156.00 mm[Hg] - Sitting 98.60 Tympanic 99.00 % 66.00/ min 20.00/min 13090 008 42416 5 137.00 mg/dL 68788 008 78921 7 137.00 mg/dL 02520 008 76718 2 97.90 Tympanic 32752 008 60211 1 137.00 mg/dL 73864 008 81453 8 97.90 Tympanic 25070 008 85385 5 67.00 mm[Hg] - Sitting 124.00 /min 32237 008 72050 6 212.00 mg/dL 62035 008 32021 6 212.00 mg/dL 65489 008 60591 9 317.00 mg/dL 89514 008 17595 4 317.00 mg/dL 27235 008 05141 8 252.00 mg/dL 80542 008 64767 0 98.70 Tympanic 28833 008 98746 7 252.00 mg/dL 30416 008 10732 3 98.70 Tympanic 11310 009 25813 9 98.70 Tympanic 58519 009 18023 3 98.20 Tympanic 32316 009 12681 5 98.40 Tympanic 90675 009 26269 5 57.00 mm[Hg] - Sitting 129.00 mm[Hg] - Sitting 98.30 Tympanic 97.00 % 65.00/ min 18.00/min 56582 009 76215 1 255.00 mg/dL 89361 009 61558 4 255.00 mg/dL 52373 009 20871 5 98.20 Tympanic 40228 009 83697 0 255.00 mg/dL 96215 009 21298 0 98.20 Tympanic 93869 009 22582 4 63.00 mm[Hg] - Lying Down 102.00 mm[Hg] - Lying Down 58.00/ min 96257 009 23818 0 167.00 mg/dL 52998 009 08115 1 167.00 mg/dL 81077 009 34476 2 164.00 mg/dL 12178 009 64888 1 164.00 mg/dL 34238 009 33598 5 208.00 mg/dL 87789 010 99406 3 98.40 Tympanic 34000 010 17756 5 98.40 Tympanic 89325 010 89239 7 66 [place] [address] 010 62245 4 60.00 mm[Hg] - Sitting 143.00 mm[Hg] - Sitting 98.90 Tympanic 98.00 % 67.00/ min 18.00/min 10039 010 50725 2 214.00 mg/dL 38202 010 26167 0 214.00 mg/dL 59396 010 45136 7 214.00 mg/dL 93502 010 85595 6 64.00 mm[Hg] - Sitting 110.00 mm[Hg] - Sitting 72.00/ min 27259 010 95031 7 98.40 Tympanic 27535 010 14443 1 212.00 mg/dL 00395 010 48136 2 212.00 mg/dL 16957 010 12584 1 115.00 mg/dL 74404 010 66546 0 115.00 mg/dL 06063 010 60248 4 98.50 Tympanic 98172 010 75468 4 150.00 mg/dL 60034 010 41702 0 150.00 mg/dL 51746 011 37611 9 98.60 Tympanic 58176 011 79492 1 67.00 mm[Hg] - Sitting 144.00 mm[Hg] - Sitting 98.20 Tympanic 98.00 % 61.00/ min 18.00/min 38654 011 03360 7 290.00 mg/dL 29985 011 80188 2 290.00 mg/dL 91974 011 62410 2 290.00 mg/dL 99608 011 49046 7 54.00 mm[Hg] - Sitting 136.00 mm[Hg] - Sitting 101.00 /min 90809 011 26710 7 98.60 Tympanic 57500 011 09786 5 240.00 mg/dL 24504 011 13530 1 240.00 mg/dL 34558 011 32018 1 156.00 mg/dL 15745 011 72409 9 156.00 mg/dL 88612 011 36337 0 97.80 Tympanic 49760 011 12937 8 343.00 mg/dL 04643 012 40180 9 97.90 Tympanic 10607 012 26498 2 466.00 mg/dL 20831 012 02895 1 466.00 mg/dL 46461 012 45405 3 466.00 mg/dL 12862 012 40595 8 97.90 Tympanic 99119 012 73589 8 56.00 mm[Hg] - Sitting 96.00 mm[Hg] - Sitting 61.00/ min 78217 012 77305 7 350.00 mg/dL 32287 012 52215 5 350.00 mg/dL 02199 012 99843 6 111.00 mg/dL 84471 012 34899 0 111.00 mg/dL 48282 012 73949 5 98.40 Tympanic 70689 012 90920 6 114.00 mg/dL 90586 013 92357 4 74.00 mm[Hg] - Sitting 112.00 mm[Hg] - Sitting 98.40 Tympanic 70.00/ min 18.00/min 76000 013 64562 8 244.00 mg/dL 32696 013 88266 7 244.00 mg/dL 51695 013 09953 1 244.00 mg/dL 16646 013 49856 1 98.20 Tympanic 85757 013 30734 7 72.00 mm[Hg] - Sitting 119.00 mm[Hg] - Sitting 76.00/ min 50836 013 79710 7 253.00 mg/dL 89050 013 83324 4 253.00 mg/dL 87438 013 27559 9 156.00 mg/dL 63732 013 28511 5 156.00 mg/dL 12949 013 99830 4 97.90 Tympanic 89574 013 79386 5 189.00 mg/dL 93077 014 42720 9 98.10 Tympanic 12557 014 98280 0 61.00 mm[Hg] - Sitting 139.00 mm[Hg] - Sitting 98.20 Forehead Scan 99.00 % 66.00/ min 18.00/min 22964 014 48625 3 169.00 mg/dL 38176 014 15173 3 98.10 Tympanic 48911 014 85395 3 75.00 mm[Hg] - Sitting 121.00 mm[Hg] - Sitting 71.00/ min 43455 014 24870 9 221.00 mg/dL 25241 014 45343 9 62.00 mg/dL 24020 014 37491 5 62.00 mg/dL 79346 014 22892 8 156.00 mg/dL 63290 014 16050 6 98.10 Tympanic 25731 014 50143 7 156.00 mg/dL 84031 015 85413 4 47329 015 55957 7 62.00 mm[Hg] - Sitting 142.00 mm[Hg] - Sitting 98.20 Tympanic 99.00 % 67.00/ min 18.00/min 44137 015 19945 9 120.00 mg/dL 44015 015 17542 7 98.00 Tympanic 60389 015 23302 2 82.00 mm[Hg] - Sitting 119.00 /min 69759 015 30837 9 110.00 mg/dL 38294 015 46921 6 104.00 mg/dL 43846 015 11564 0 100.00 mg/dL 39750 015 11921 2 98.10 Tympanic 73848 015 08143 6 100.00 mg/dL 13403 016 38844 2 67.00 mm[Hg] - Sitting 147.00 mm[Hg] - Sitting 99.00 Tympanic 99.00 % 78.00/ min 20.00/min 09942 016 43963 5 158.00 mg/dL 90547 016 83805 1 158.00 mg/dL 57690 016 10849 2 158.00 mg/dL 37177 016 76467 0 66.00 mm[Hg] - Sitting 121.00 mm[Hg] - Sitting 74.00/ min 28186 016 08653 1 97.00 mg/dL 77699 016 74094 5 97.00 mg/dL 88357 016 60417 4 78.00 mg/dL 27803 016 72447 6 78.00 mg/dL 13317 016 75574 5 248.00 mg/dL 87184 016 09260 8 248.00 mg/dL 73181 017 96925 3 54.00 mm[Hg] - Sitting 142.00 mm[Hg] - Sitting 98.30 Tympanic 99.00 % 76.00/ min 18.00/min 95106 017 51857 4 267.00 mg/dL 61395 017 24422 6 73.00 mm[Hg] - Sitting 109.00 mm[Hg] - Sitting 70.00/ min 96845 017 23026 1 184.00 mg/dL 73455 017 12119 5 184.00 mg/dL 89159 017 30004 9 248.00 mg/dL 95119 017 24950 8 299.00 mg/dL 97633 017 38490 3 299.00 mg/dL 43871 018 91025 7 50.00 mm[Hg] - Sitting 125.00 mm[Hg] - Sitting 98.30 Tympanic 98.00 % 76.00/ min 16.00/min 96235 018 52196 3 168.00 mg/dL 66792 018 56037 0 75.00 mm[Hg] - Sitting 121.00 mm[Hg] - Sitting 70.00/ min 28519 018 52311 7 264.00 mg/dL 45859 018 39058 6 132.00 mg/dL 28301 018 93237 6 154.00 mg/dL 37486 018 36460 6 154.00 mg/dL 65026 019 82781 4 63.00 mm[Hg] - Sitting 147.00 mm[Hg] - Sitting 98.50 Tympanic 99.00 % 69.00/ min 18.00/min 24220 019 14878 9 159.00 mg/dL 16268 019 81080 8 73.00 mm[Hg] - Sitting 110.00 mm[Hg] - Sitting 72.00/ min 45528 019 39182 4 191.00 mg/dL 04754 019 31328 8 70.00 mg/dL 11615 019 55404 4 70.00 mg/dL 68239 019 02954 6 198.00 mg/dL 10014 019 47347 0 198.00 mg/dL 25529 020 98371 2 59.00 mm[Hg] - Sitting 131.00 mm[Hg] - Sitting 98.90 Tympanic 99.00 % 69.00/ min 18.00/min 75804 020 01204 7 299.00 mg/dL 49734 020 59942 0 62.00 mm[Hg] - Sitting 132.00 mm[Hg] - Sitting 68.00/ min 05196 020 48165 3 299.00 mg/dL 11930 020 77064 3 299.00 mg/dL 78139 020 57586 9 220.00 mg/dL 39139 020 11561 1 220.00 mg/dL 18498 020 50367 1 270.00 mg/dL 43664 020 17785 4 270.00 mg/dL 48755 020 40881 9 143.00 mg/dL 48001 020 55656 4 143.00 mg/dL 05358 021 08032 0 59.00 mm[Hg] - Sitting 121.00 mm[Hg] - Sitting 98.40 Forehead Scan 98.00 % 70.00/ min 16.00/min 01565 021 77136 0 140.00 mg/dL 15239 021 12614 0 67.00 mm[Hg] - Sitting 130.00 mm[Hg] - Sitting 68.00/ min 47659 021 42963 8 140.00 mg/dL 36542 021 60521 6 140.00 mg/dL 30427 021 50237 8 156.00 mg/dL 37895 021 35681 1 156.00 mg/dL 79554 021 22980 5 146.00 mg/dL 29862 021 45303 4 146.00 mg/dL 03515 021 23948 5 183.00 mg/dL 88661 021 47849 2 183.00 mg/dL 10010 022 89171 3 14976 022 39250 1 43.00 mm[Hg] - Sitting 113.00 mm[Hg] - Sitting 97.80 Tympanic 97.00 % 64.00/ min 18.00/min 57762 022 67211 6 270.00 mg/dL 78506 022 97399 5 68.00 mm[Hg] - Sitting 122.00 mm[Hg] - Sitting 67.00/ min 95041 022 53616 9 270.00 mg/dL 20846 022 32998 4 270.00 mg/dL 65680 022 41978 4 207.00 mg/dL 40277 022 23711 8 207.00 mg/dL 18818 022 03104 9 217.00 mg/dL 56135 022 94692 2 217.00 mg/dL 97134 022 03156 0 192.00 mg/dL 15702 022 53851 9 192.00 mg/dL 03101 023 52963 8 48.00 mm[Hg] - Sitting 116.00 mm[Hg] - Sitting 98.50 Tympanic 97.00 % 63.00/ min 18.00/min 24393 023 17695 9 68.00 mm[Hg] - Sitting 131.00 mm[Hg] - Sitting 68.00/ min 41863 023 08773 8 235.00 mg/dL 38591 023 10082 4 235.00 mg/dL 53400 023 61863 0 235.00 mg/dL 08086 023 55524 0 199.00 mg/dL 62052 023 89689 7 199.00 mg/dL 59436 023 88696 4 233.00 mg/dL 16553 023 70744 3 233.00 mg/dL 99063 023 12113 6 229.00 mg/dL 12822 023 49640 4 229.00 mg/dL 00688 024 65415 3 58.00 mm[Hg] - Sitting 102.00 mm[Hg] - Sitting 58.00/ min 96850 024 34287 9 156.00 mg/dL 04845 024 85522 4 156.00 mg/dL 47926 024 71710 3 156.00 mg/dL 26389 024 30020 0 343.00 mg/dL 59112 024 96603 6 343.00 mg/dL 30559 024 77852 2 167.00 mg/dL 91175 024 70986 0 167.00 mg/dL 41003 024 50071 8 155.00 mg/dL 71289 024 54038 7 155.00 mg/dL 08752 025 24111 0 51.00 mm[Hg] - Lying Down 109.00 mm[Hg] - Lying Down 98.60 Tympanic 95.00 % 67.00/ min 20.00/min 43264 025 38426 0 60.00 mm[Hg] - Sitting 118.00 mm[Hg] - Sitting 98.30 Forehead Scan 98.00 % 68.00/ min 16.00/min 76473 025 64711 3 235.00 mg/dL 94730 025 98345 1 63.00 mm[Hg] - Sitting 110.00 mm[Hg] - Sitting 75.00/ min 07599 025 68037 9 295.00 mg/dL 73627 025 20503 4 94.00 mg/dL 17825 025 99445 1 132.00 mg/dL 65779 025 42874 2 132.00 mg/dL 56901 026 71721 8 50.00 mm[Hg] - Sitting 123.00 mm[Hg] - Sitting 98.50 Tympanic 95.00 % 66.00/ min 18.00/min 17717 026 06547 0 275.00 mg/dL 17794 026 88845 7 275.00 mg/dL 39968 026 88270 1 275.00 mg/dL 81220 026 58267 6 67.00 mm[Hg] - Sitting 123.00 mm[Hg] - Sitting 66.00/ min 07372 026 89888 3 187.00 mg/dL 27292 026 39956 5 187.00 mg/dL 53082 026 65749 0 167.00 mg/dL 55420 026 24257 8 167.00 mg/dL 75999 026 41625 6 387.00 mg/dL 19096 027 69700 7 53.00 mm[Hg] - Sitting 132.00 mm[Hg] - Sitting 98.60 Tympanic 97.00 % 64.00/ min 18.00/min 11623 027 89749 9 189.00 mg/dL 82695 027 41987 4 67.00 mm[Hg] - Sitting 118.00 mm[Hg] - Sitting 66.00/ min 57133 027 31233 2 189.00 mg/dL 26187 027 63242 7 189.00 mg/dL 64935 027 32924 1 105.00 mg/dL 48782 027 97570 8 105.00 mg/dL 52726 027 15686 4 223.00 mg/dL 98166 027 59878 9 223.00 mg/dL 17885 027 12295 9 164.00 mg/dL 53988 028 37596 1 200.00 mg/dL 87330 028 23584 9 200.00 mg/dL 28253 028 34372 1 69.00 mm[Hg] - Sitting 122.00 mm[Hg] - Sitting 67.00/ min 47307 028 31673 3 200.00 mg/dL 25805 028 25946 0 117.00 mg/dL 75781 028 63840 0 117.00 mg/dL 42120 028 91258 1 114.00 mg/dL Immunizations Vaccine Date Status COVID-19 09/20/2023 Completed Influenza 09/14/2024 Completed Other 10/08/2023 Completed Shingles 05/27/2011 Completed Tetanus 04/13/2022 Completed TDaP 04/13/2022 Completed Shingles 2 10/05/2018 Completed
--- OUTSIDE RECORDS SUMMARY | 2024-10-03 10:59 | External Medical Summary | Continuity Of Care Document ---
Author Name Unknown Address [address] [address] Organization [facility] () Care Team Providers Care Special Education Instructor Name Role Phone DO Machado Amy Primary Care Provider [phone] Allergies Allergy Reaction Start Date End Date [...] 3 0.1 mL 08/29 Inactiv e 2023 62282 06372 0 1 time Intrad ermal False Tubersol 5 tub. unit/0.1 mL intradermal injection solution [Tuberculin PPD] 0.1mL Intradermal 1 time For PPD 2nd Step Give 2nd Step PPD Day 1 and Read results Day 3 (schedule 7 days after 1st READ) 0.1mL 09/08 Inactiv e 2023 52993 32407 0 1 time Intrad ermal False [facility] - Nurse initials indicate verificatio n that [id number] vaccine was administere d by [facility] [...] order For Diabetes 08/25 Inactiv e 2023 14847 72218 9 4 times a day Subcut aneous False Aspirin 325 mg tablet [generic] 325 By Mouth Twice daily For Anticoagulati on 325 09/25 Active 2023 87598 04329 1 Twice daily By Mouth False Ferrous sulfate 325 mg (65 mg iron) tablet [generic] 325 By Mouth Once daily For anemia 325 2023 Active 2023 50903 45436 5 Once daily By Mouth False Linezolid 600 mg tablet [generic] 600 mg By Mouth Every 12 hours For MRSA INFECTION L BKA 600 mg 08/25 Inactiv e 2023 19118 93783 1 Every 12 hours By Mouth False Cefpodoxime 200 mg tablet [generic] 400 mg By Mouth Twice daily For MRSA INFECTION L BKA 400 mg 08/25 Inactiv e 2023 09768 86418 0 Twice daily By Mouth False Coenzyme Q10 100 mg tablet [generic] 100 mg By Mouth Once daily For SUPP 100 mg 2023 Active 2023 83640 85402 0 Once daily By Mouth False Levothyroxi ne 50 mcg tablet [generic] 50mcg By Mouth Once daily For hypothyroidis m 50mcg 2023 Active 2023 31462 85877 0 Once daily By Mouth False One A Day Men Complete 240 mcg-25 mcg-300 mcg tablet 1 tab By Mouth Once daily For supplement 1 tab 2023 Active 2023 98987 01675 1 Once daily By Mouth False Cholecalcif adalberto (vitamin D3) 50 mcg (2,000 unit) tablet [generic] 1 TAB By Mouth Once daily For SUPP 1 TAB 2023 Active 2023 75842 87106 1 Once daily By Mouth False Cetirizine 10 mg tablet [generic] 1 TAB By Mouth At bedtime For Allergies 1 TAB 2023 Active 2023 71757 09475 0 At bedtime By Mouth False Timolol maleate 0.25 % eye drops [generic] 1 drop Both Eyes Twice daily For glaucoma 1 drop 2023 Active 2023 58216 06380 5 Twice daily Both Eyes False Alendronate 35 mg tablet [generic] 35mg By Mouth Every week For SIADH 35mg 08/31 Inactiv e 2023 15683 99375 5 Every week By Mouth False Lantus Solostar U-100 Insulin 100 unit/mL (3 mL) subcutaneou s pen 18 units Subcutaneous Every morning For DIABETES 18 units 08/25 Inactiv e 2023 77148 38302 0 Every morning Subcut aneous False Lantus Solostar U-100 Insulin 100 unit/mL (3 mL) subcutaneou s pen 18 units Subcutaneous Every morning For DIABETES 18 units 2023 Active 2023 39704 77839 0 Every morning Subcut aneous False Linezolid 600 mg tablet [generic] 600 mg By Mouth Every 12 hours For MRSA INFECTION L BKA 600 mg 08/28 Inactiv e 2023 95955 11017 1 Every 12 hours By Mouth False [...] order For Diabetes 08/31 Inactiv e 2023 52291 86089 9 4 times a day Subcut aneous False Cefpodoxime 200 mg tablet [generic] 400 mg By Mouth Twice daily For MRSA INFECTION L BKA 400 mg 08/28 Inactiv e 2023 35117 52722 0 Twice daily By Mouth False Brimonidine 0.1 % eye drops [generic] 1 drop Both Eyes Twice daily For glaucoma 1 drop 2023 Active 2023 91747 91620 0 Twice daily Both Eyes False Metoprolol succinate ER 50 mg tablet,exte nded release 24 hr [generic] 50 mg By Mouth Once daily HOLD FOR SBP <100, or pulse <60 For HTN 50 mg 2023 Active 2023 86005 26339 1 Once daily By Mouth False Amlodipine 2.5 mg tablet [generic] 2.5 mg By Mouth Once daily For HTN 2.5 mg 2023 Active 2023 90942 50596 5 Once daily By Mouth False Docusate sodium 100 mg capsule [generic] 100mg By Mouth Twice daily as needed For constipation HOLD FOR LOOSE STOOLS 100mg 2023 Active 2023 75009 23479 1 Twice daily as needed By Mouth False Atorvastati n 40 mg tablet [generic] 40mg By Mouth Once daily For HDL 40mg 08/26 Inactiv e 2023 22416 28750 5 Once daily By Mouth False Tylenol 325 mg tablet 2 tabs By Mouth Every 4 hours as needed For Pain DO NOT EXCEED 3000 MG APAP/24 Hours 2 tabs 2023 Active 2023 95958 46045 0 Every 4 hours as needed By Mouth False Tylenol 325 mg tablet 2 tabs By Mouth Every 4 hours as needed For Fever >100 DO NOT EXCEED 3000 MG APAP/24 Hours 2 tabs 2023 Active 2023 89295 23855 0 Every 4 hours as needed By Mouth False Dulcolax (bisacodyl) 10 mg rectal suppository One Suppository per rectum PRN if Milk of Magnisia ineffective. Give on day 5 of no BM 1 sup 2023 Active 2023 75735 61500 1 Daily as needed Rectal False Fleet Enema 19 gram-7 gram/118 mL Administer per rectum PRN one time if dulcolax suppository not effective. Give on day 6 of no BM 1 2023 Active 2023 15114 72494 6 Daily as needed Rectal False Dextrose 50 % in water (D50W) intravenous solution [generic] Dextrose 50% evonne 20-50 ml (slow push) Intravenous if Glucagon not effective after 15 minutes. CALL 911 for ED Evaluation. 50% evonne 2023 Active 2023 61804 12643 9 Intrav enous False Glucagon (HCl) Emergency Kit 1 mg solution for injection Administer Glucagon 1 mg Intramuscular if 15 minutes after GLucose Gel is administered Glucose remains less than 70 1 mg 2023 Active 2023 23185 33309 2 Intram uscula r False Glucose Gel 40 % oral gel [Dextrose] PRN If resident is unable to swallow (with or without symptoms) and Glucose results less than 70 give GLucose 40% Gel 1 tube orally - Recheck Glucose 15 minutes after administratio n. 1 tube 2023 Active 2023 11887 41612 8 By Mouth False Milk of Magnesia 400 mg/5 mL oral suspension [Magnesium hydroxide] PRN 30ml By Mouth Daily as needed for constipation one time daily if no BM, on day 4 of no BM (PRN refer to instructions) For Constipation 30 mL 2023 Active 2023 10807 94194 6 Daily as needed By Mouth False Atorvastati n 40 mg tablet [generic] 08/26 Inactiv e 2023 28991 22604 5 Atorvastati n 40 mg tablet [generic] 40mg By Mouth Once daily For HDL 40mg 2023 Active 2023 93663 77270 5 Once daily By Mouth False Insulin aspart (U-100) 100 unit/mL (3 mL) subcutaneou s pen [generic] 15 units Subcutaneous 1 time For dm 15 units 08/26 Inactiv e 2023 35323 92735 5 1 time Subcut aneous False Humalog KwikPen (U-100) Insulin 100 unit/mL subcutaneou s 15 units Subcutaneous 1 time For dm 15 units 08/27 Inactiv e 2023 95071 77006 9 1 time Subcut aneous False Linezolid 600 mg tablet [generic] 600 mg By Mouth Every 12 hours For MRSA INFECTION L BKA 600 mg 09/06 Inactiv e 2023 61180 61014 1 Every 12 hours By Mouth False Cefpodoxime 200 mg tablet [generic] 400 mg By Mouth Twice daily For MRSA INFECTION L BKA 400 mg 08/31 Inactiv e 2023 43988 87938 0 Twice daily By Mouth False Senna 8.6 mg tablet 8.6 mg By Mouth Once daily For Constipation 8.6 mg 09/07 Inactiv e 2023 65544 67180 1 Once daily By Mouth False Humalog [...] abnormalities . Per Carb 2023 Active 2023 64091 78232 9 4 times a day Subcut aneous False Alendronate 35 mg tablet [generic] 08/31 Inactiv e 2023 68894 01797 5 Alendronate 35 mg tablet [generic] 35mg By Mouth Every week For Osteoporosis 35mg 202300 /0000 Active 2023 92380 85899 5 Every week By Mouth False ProSource 10 gram-100 kcal/30 mL oral liquid 30 ml By Mouth Once daily For wound healing 30 ml 2023 Active 2023 98948 73158 2 Once daily By Mouth False Clotrimazol e 1 % topical cream [generic] 1 applicaiton Topical Twice daily For tinea, apply to groin rash after cleansing and throughouly drying. Can discontinue order 3 days after rash resolves. 1 applica stacy 09/08 Inactiv e 2023 54074 26701 0 Twice daily Topica l False MAGIC MIX 1:1:1:1 : ZINC OXIDE EXTERNAL OINTMENT 40%; HYDROCOTISO NE EXTERNAL CREAM 1%; NYSTATIN EXTERNAL CREAM [id number]/GM; SILVADENE CREAM 1% Every shift Apply topically to MASD area on coccyx/buttoc ks each shift and as needed for incontinence care For MASD on coccyx layer 2023 Active 2023 Every shift Topica l False Senna 8.6 mg tablet 8.6 mg By Mouth Once daily For Constipation 8.6 mg 09/07 Inactiv e 2023 12384 50658 1 Once daily By Mouth False Senna 8.6 mg tablet 8.6 mg By Mouth Once daily As Needed For Constipation 8.6 mg 2023 Active 2023 56379 93945 1 Once daily By Mouth False BD AutoShield Duo Pen Needle 30 gauge x 3/16in 1 pen needle Subcutaneous 4 times a day For DM 1 pen needle 2023 Active 2023 44900 19426 5 4 times a day Subcut aneous False Hydrocortis one 1 % topical ointment [generic] 1 application Topical Twice daily For tinea *mix 1:1 with clotrimazole cream and apply to clean/dry groin rash 1 applica peggy 09/19 Active 2023 01727 56171 6 Twice daily Topica l False Clotrimazol e 1 % topical cream [generic] 1 applicaiton Topical Twice daily For tinea, apply to groin rash after cleansing and throughouly drying. MIX WITH HYDROCORTISON E Can discontinue order 3 days after rash resolves. 1 applica stacy 2023 Active 2023 88012 30509 0 Twice daily Topica l False Humalog KwikPen (U-100) Insulin 100 unit/mL subcutaneou s 08/31 Inactiv e 2023 70023 37787 9 MediHoney HCS 4 1/2in X 4 1/2in bandage Cleanse area with NSS, [facility], non adherent dressing, kerlix secure with paper tape daily. For wound stage III 1 2023 Active 2023 45597 38684 1 Once daily Topica l False Problems Code Description Start Date End Date Status D64.9 Anemia, unspecified 08/25/2024 Activ e I25.10 Atherosclerotic hear t disease of [place] coronary artery without angina pectoris 08/25/2024 Active [...] weight Temperature SpO2 Blood Sugar Pulse Respirations 18102 8 67.00 mm[Hg] - Sitting 145.00 mm[Hg] - Sitting 98.50 Forehead Scan 96.00 % 81.00/ min 16.00/min 004 23207 2 67.00 mm[Hg] - Sitting 145.00 mm[Hg] - Sitting 98.50 Tympanic 81.00/ min 16.00/min 004 29493 5 56.00 mm[Hg] - Sitting 142.00 mm[Hg] - Sitting 136.40 NI 100.20 Tympanic 96.00 % 92.00/ min 18.00/min 58624 004 55616 6 59619 004 33283 4 143.00 mg/dL 02158 0 97.80 Tympanic 005 67197 7 60.00 mm[Hg] - Sitting 140.00 mm[Hg] - Sitting 98.00 Tympanic 84.00/ min 18.00/min 07441 005 27582 0 63.00 mm[Hg] - Sitting 141.00 mm[Hg] - Sitting 98.20 Tympanic 92.00 % 63.00/ min 16.00/min 36982 005 87436 8 69.00 mm[Hg] - Sitting 106.00 mm[Hg] - Sitting 97.20 Tympanic 005 74428 7 69.00/ min 16.00/min 13089 005 56090 3 69.00 mm[Hg] - Sitting 106.00 mm[Hg] - Sitting 98.20 Tympanic 69.00/ min 16.00/min 18722 005 37358 1 367.00 mg/dL 30207 005 27509 2 97.20 Tympanic 60540 005 00785 4 97.20 Tympanic 21044 005 05411 0 69.00 mm[Hg] - Sitting 106.00 mm[Hg] - Sitting 69.00/ min 68753 005 74394 3 452.00 mg/dL 50120 005 73382 3 452.00 mg/dL 04015 005 03377 5 352.00 mg/dL 68540 005 85448 3 352.00 mg/dL 42635 005 52853 7 98.20 Tympanic 66308 005 3 101.00 mg/dL 25972 005 8 101.00 mg/dL 33183 006 82447 4 66.00 mm[Hg] - Sitting 107.00 mm[Hg] - Sitting 98.00 Tympanic 66.00/ min 18.00/min 47252 006 03957 0 62.00 mm[Hg] - Sitting 162.00 mm[Hg] - Sitting 98.20 Tympanic 96.00 % 60.00/ min 16.00/min 76575 006 56670 4 62.00 mm[Hg] - Sitting 162.00 mm[Hg] - Sitting 98.00 Tympanic 70.00/ min 18.00/min 09804 006 32205 8 62.00 mm[Hg] - Sitting 162.00 mm[Hg] - Sitting 98.20 Tympanic 70.00/ min 18.00/min 82565 006 54209 2 66.00 mm[Hg] - Sitting 132.00 mm[Hg] - Sitting 98.60 Tympanic 74.00/ min 16.00/min 23867 006 58897 5 159.00 mg/dL 30370 006 65123 1 159.00 mg/dL 47789 006 82613 8 98.00 Tympanic 58309 006 91760 2 62.00 mm[Hg] - Sitting 162.00 mm[Hg] - Sitting 70.00/ min 68819 006 15849 7 264.00 mg/dL 48469 006 29692 7 264.00 mg/dL 08772 006 48229 4 196.00 mg/dL 36981 006 79304 3 98.20 Tympanic 20037 006 93300 6 271.00 mg/dL 50387 007 50723 3 97.20 Tympanic 19399 007 30628 2 63.00 mm[Hg] - Sitting 132.00 mm[Hg] - Sitting 98.50 Tympanic 94.00 % 66.00/ min 16.00/min 80698 007 32421 5 188.00 mg/dL 21123 007 93144 2 188.00 mg/dL 65597 007 32169 2 188.00 mg/dL 60987 007 99228 7 97.20 Tympanic 84408 007 21154 6 97.20 Tympanic 21108 007 41738 5 67.00 mm[Hg] - Sitting 152.00 mm[Hg] - Sitting 68.00/ min 32915 007 31654 0 141.00 mg/dL 18935 007 24914 3 141.00 mg/dL 63343 007 86680 1 366.00 mg/dL 00811 007 41181 7 366.00 mg/dL 10896 007 18306 7 98.00 Tympanic 59294 007 92958 6 324.00 mg/dL 86831 007 83544 3 98.00 Tympanic 05350 007 67430 7 324.00 mg/dL 80037 008 83158 0 98.00 Tympanic 12059 008 92104 2 97.90 Tympanic 19537 008 63329 0 98.20 Tympanic 26054 008 96459 0 73.00 mm[Hg] - Sitting 156.00 mm[Hg] - Sitting 98.60 Tympanic 99.00 % 66.00/ min 20.00/min 95984 008 21722 5 137.00 mg/dL 25083 008 39951 7 137.00 mg/dL 84477 008 92598 2 97.90 Tympanic 86035 008 44727 1 137.00 mg/dL 17956 008 60965 8 97.90 Tympanic 00600 008 80790 5 67.00 mm[Hg] - Sitting 124.00 /min 76058 008 04217 6 212.00 mg/dL 22939 008 37040 6 212.00 mg/dL 03765 008 47340 9 317.00 mg/dL 77385 008 06689 4 317.00 mg/dL 09504 008 75849 8 252.00 mg/dL 80274 008 90917 0 98.70 Tympanic 37001 008 06536 7 252.00 mg/dL 93388 008 01347 3 98.70 Tympanic 48329 009 90351 9 98.70 Tympanic 32096 009 71101 3 98.20 Tympanic 07449 009 92324 5 98.40 Tympanic 30219 009 78377 5 57.00 mm[Hg] - Sitting 129.00 mm[Hg] - Sitting 98.30 Tympanic 97.00 % 65.00/ min 18.00/min 38640 009 23926 1 255.00 mg/dL 32984 009 34812 4 255.00 mg/dL 85756 009 70984 5 98.20 Tympanic 97628 009 66408 0 255.00 mg/dL 08832 009 86687 0 98.20 Tympanic 57278 009 20537 4 63.00 mm[Hg] - Lying Down 102.00 mm[Hg] - Lying Down 58.00/ min 65986 009 31599 0 167.00 mg/dL 12751 009 62429 1 167.00 mg/dL 11619 009 21958 2 164.00 mg/dL 32829 009 13392 1 164.00 mg/dL 82400 009 97828 5 208.00 mg/dL 71397 010 86901 3 98.40 Tympanic 67140 010 25540 5 98.40 Tympanic 38434 010 27216 7 66 NI 73716 010 34408 4 60.00 mm[Hg] - Sitting 143.00 mm[Hg] - Sitting 98.90 Tympanic 98.00 % 67.00/ min 18.00/min 61161 010 33703 2 214.00 mg/dL 85525 010 74830 0 214.00 mg/dL 04822 010 22544 7 214.00 mg/dL 90089 010 46603 6 64.00 mm[Hg] - Sitting 110.00 mm[Hg] - Sitting 72.00/ min 21385 010 47473 7 98.40 Tympanic 96664 010 85060 1 212.00 mg/dL 77889 010 61160 2 212.00 mg/dL 52959 010 42428 1 115.00 mg/dL 87096 010 92183 0 115.00 mg/dL 62810 010 74438 4 98.50 Tympanic 09255 010 08092 4 150.00 mg/dL 98277 010 04383 0 150.00 mg/dL 03991 011 99588 9 98.60 Tympanic 58684 011 28214 1 67.00 mm[Hg] - Sitting 144.00 mm[Hg] - Sitting 98.20 Tympanic 98.00 % 61.00/ min 18.00/min 48117 011 64461 7 290.00 mg/dL 77484 011 53342 2 290.00 mg/dL 44471 011 62992 2 290.00 mg/dL 24009 011 74345 7 54.00 mm[Hg] - Sitting 136.00 mm[Hg] - Sitting 101.00 /min 78430 011 62112 7 98.60 Tympanic 81196 011 91174 5 240.00 mg/dL 85572 011 97912 1 240.00 mg/dL 46661 011 04915 1 156.00 mg/dL 42287 011 13253 9 156.00 mg/dL 62213 011 95776 0 97.80 Tympanic 23185 011 28196 8 343.00 mg/dL 01028 012 41794 9 97.90 Tympanic 23501 012 27203 2 466.00 mg/dL 55179 012 45620 1 466.00 mg/dL 62845 012 53040 3 466.00 mg/dL 17953 012 63697 8 97.90 Tympanic 85131 012 33095 8 56.00 mm[Hg] - Sitting 96.00 mm[Hg] - Sitting 61.00/ min 22420 012 62967 7 350.00 mg/dL 76917 012 37863 5 350.00 mg/dL 52454 012 35191 6 111.00 mg/dL 09444 012 91882 0 111.00 mg/dL 19408 012 68863 5 98.40 Tympanic 96613 012 72650 6 114.00 mg/dL 05204 013 62988 4 74.00 mm[Hg] - Sitting 112.00 mm[Hg] - Sitting 98.40 Tympanic 70.00/ min 18.00/min 37933 013 38427 8 244.00 mg/dL 06548 013 35860 7 244.00 mg/dL 67982 013 14674 1 244.00 mg/dL 28953 013 53300 1 98.20 Tympanic 43105 013 96329 7 72.00 mm[Hg] - Sitting 119.00 mm[Hg] - Sitting 76.00/ min 62821 013 22741 7 253.00 mg/dL 44273 013 51507 4 253.00 mg/dL 46445 013 45017 9 156.00 mg/dL 71043 013 95378 5 156.00 mg/dL 90244 013 15358 4 97.90 Tympanic 95540 013 47198 5 189.00 mg/dL 00295 014 39069 9 98.10 Tympanic 45317 014 09300 0 61.00 mm[Hg] - Sitting 139.00 mm[Hg] - Sitting 98.20 Forehead Scan 99.00 % 66.00/ min 18.00/min 53549 014 17894 3 169.00 mg/dL 43965 014 66503 3 98.10 Tympanic 44462 014 35002 3 75.00 mm[Hg] - Sitting 121.00 mm[Hg] - Sitting 71.00/ min 14518 014 34156 9 221.00 mg/dL 06663 014 54300 9 62.00 mg/dL 54673 014 91033 5 62.00 mg/dL 37514 014 60586 8 156.00 mg/dL 33220 014 03535 6 98.10 Tympanic 49335 014 63852 7 156.00 mg/dL 16183 015 41522 4 55572 015 03212 7 62.00 mm[Hg] - Sitting 142.00 mm[Hg] - Sitting 98.20 Tympanic 99.00 % 67.00/ min 18.00/min 07433 015 52529 9 120.00 mg/dL 01453 015 19448 7 98.00 Tympanic 77844 015 96985 2 82.00 mm[Hg] - Sitting 119.00 /min 69227 015 72455 9 110.00 mg/dL 57272 015 26382 6 104.00 mg/dL 36963 015 95922 0 100.00 mg/dL 56023 015 88842 2 98.10 Tympanic 23670 015 56268 6 100.00 mg/dL 91421 016 52778 2 67.00 mm[Hg] - Sitting 147.00 mm[Hg] - Sitting 99.00 Tympanic 99.00 % 78.00/ min 20.00/min 51681 016 00334 5 158.00 mg/dL 07593 016 34136 1 158.00 mg/dL 72740 016 94748 2 158.00 mg/dL 38823 016 09930 0 66.00 mm[Hg] - Sitting 121.00 mm[Hg] - Sitting 74.00/ min 33386 016 45898 1 97.00 mg/dL 60645 016 58970 5 97.00 mg/dL 13549 016 08832 4 78.00 mg/dL 20700 016 96332 6 78.00 mg/dL 48546 016 76677 5 248.00 mg/dL 10569 016 25086 8 248.00 mg/dL 13673 017 70711 3 54.00 mm[Hg] - Sitting 142.00 mm[Hg] - Sitting 98.30 Tympanic 99.00 % 76.00/ min 18.00/min 20741 017 69771 4 267.00 mg/dL 92890 017 92273 6 73.00 mm[Hg] - Sitting 109.00 mm[Hg] - Sitting 70.00/ min 60847 017 66401 1 184.00 mg/dL 19015 017 31187 5 184.00 mg/dL 24153 017 85391 9 248.00 mg/dL 71151 017 14712 8 299.00 mg/dL 92621 017 02812 3 299.00 mg/dL 48115 018 29079 7 50.00 mm[Hg] - Sitting 125.00 mm[Hg] - Sitting 98.30 Tympanic 98.00 % 76.00/ min 16.00/min 11002 018 41021 3 168.00 mg/dL 75137 018 21273 0 75.00 mm[Hg] - Sitting 121.00 mm[Hg] - Sitting 70.00/ min 60215 018 61822 7 264.00 mg/dL 30361 018 94936 6 132.00 mg/dL 01145 018 24152 6 154.00 mg/dL 34102 018 94908 6 154.00 mg/dL 46018 019 13575 4 63.00 mm[Hg] - Sitting 147.00 mm[Hg] - Sitting 98.50 Tympanic 99.00 % 69.00/ min 18.00/min 39760 019 56416 9 159.00 mg/dL 40874 019 91824 8 73.00 mm[Hg] - Sitting 110.00 mm[Hg] - Sitting 72.00/ min 54538 019 82464 4 191.00 mg/dL 27357 019 81702 8 70.00 mg/dL 64836 019 48251 4 70.00 mg/dL 83052 019 70499 6 198.00 mg/dL 33446 019 94595 0 198.00 mg/dL 22375 020 84756 2 59.00 mm[Hg] - Sitting 131.00 mm[Hg] - Sitting 98.90 Tympanic 99.00 % 69.00/ min 18.00/min 38649 020 95636 7 299.00 mg/dL 93669 020 06809 0 62.00 mm[Hg] - Sitting 132.00 mm[Hg] - Sitting 68.00/ min 28710 020 89070 3 299.00 mg/dL 48171 020 15751 3 299.00 mg/dL 93889 020 55710 9 220.00 mg/dL 94065 020 52194 1 220.00 mg/dL 28252 020 48343 1 270.00 mg/dL 33637 020 35941 4 270.00 mg/dL 87919 020 65674 9 143.00 mg/dL 86442 020 95287 4 143.00 mg/dL 28317 021 26248 0 59.00 mm[Hg] - Sitting 121.00 mm[Hg] - Sitting 98.40 Forehead Scan 98.00 % 70.00/ min 16.00/min 49657 021 89781 0 140.00 mg/dL 97224 021 54494 0 67.00 mm[Hg] - Sitting 130.00 mm[Hg] - Sitting 68.00/ min 20426 021 88985 8 140.00 mg/dL 17575 021 97487 6 140.00 mg/dL 00439 021 44613 8 156.00 mg/dL 30366 021 29183 1 156.00 mg/dL 72380 021 53491 5 146.00 mg/dL 68487 021 77934 4 146.00 mg/dL 34033 021 32282 5 183.00 mg/dL 99344 021 67240 2 183.00 mg/dL 98662 022 63358 3 65821 022 70389 1 43.00 mm[Hg] - Sitting 113.00 mm[Hg] - Sitting 97.80 Tympanic 97.00 % 64.00/ min 18.00/min 55488 022 79971 6 270.00 mg/dL 48436 022 78538 5 68.00 mm[Hg] - Sitting 122.00 mm[Hg] - Sitting 67.00/ min 63883 022 70852 9 270.00 mg/dL 23889 022 15729 4 270.00 mg/dL 00416 022 45256 4 207.00 mg/dL 33334 022 61437 8 207.00 mg/dL 33930 022 88420 9 217.00 mg/dL 64732 022 44882 2 217.00 mg/dL 71517 022 24130 0 192.00 mg/dL 22435 022 36138 9 192.00 mg/dL 72254 023 59211 8 48.00 mm[Hg] - Sitting 116.00 mm[Hg] - Sitting 98.50 Tympanic 97.00 % 63.00/ min 18.00/min 60514 023 65139 9 68.00 mm[Hg] - Sitting 131.00 mm[Hg] - Sitting 68.00/ min 98672 023 99156 8 235.00 mg/dL 03549 023 58088 4 235.00 mg/dL 11428 023 19842 0 235.00 mg/dL 48855 023 65600 0 199.00 mg/dL 39083 023 34441 7 199.00 mg/dL 92200 023 58876 4 233.00 mg/dL 34759 023 25148 3 233.00 mg/dL 84467 023 79242 6 229.00 mg/dL 76425 023 61351 4 229.00 mg/dL 39973 024 09264 3 58.00 mm[Hg] - Sitting 102.00 mm[Hg] - Sitting 58.00/ min 89881 024 97875 9 156.00 mg/dL 04693 024 79449 4 156.00 mg/dL 99149 024 80715 3 156.00 mg/dL 40361 024 96467 0 343.00 mg/dL 16148 024 91046 6 343.00 mg/dL 13459 024 28337 2 167.00 mg/dL 90445 024 69865 0 167.00 mg/dL 32998 024 87441 8 155.00 mg/dL 94387 024 93903 7 155.00 mg/dL 36444 025 82232 0 51.00 mm[Hg] - Lying Down 109.00 mm[Hg] - Lying Down 98.60 Tympanic 95.00 % 67.00/ min 20.00/min 55929 025 11805 0 60.00 mm[Hg] - Sitting 118.00 mm[Hg] - Sitting 98.30 Forehead Scan 98.00 % 68.00/ min 16.00/min 03339 025 30959 3 235.00 mg/dL 60756 025 38939 1 63.00 mm[Hg] - Sitting 110.00 mm[Hg] - Sitting 75.00/ min 43067 025 90448 9 295.00 mg/dL 71470 025 14885 4 94.00 mg/dL 49823 025 58537 1 132.00 mg/dL 40016 025 59030 2 132.00 mg/dL 35503 026 12059 8 50.00 mm[Hg] - Sitting 123.00 mm[Hg] - Sitting 98.50 Tympanic 95.00 % 66.00/ min 18.00/min 16053 026 73022 0 275.00 mg/dL 53287 026 08644 7 275.00 mg/dL 27739 026 95864 1 275.00 mg/dL 70319 026 54472 6 67.00 mm[Hg] - Sitting 123.00 mm[Hg] - Sitting 66.00/ min 22614 026 16929 3 187.00 mg/dL 21629 026 20567 5 187.00 mg/dL 69597 026 18763 0 167.00 mg/dL 21387 026 22924 8 167.00 mg/dL 24614 026 33395 6 387.00 mg/dL Immunizations Vaccine Date Status COVID-19 09/20/2023 Completed Influenza 09/14/2024 Completed Other 10/08/2023 Completed Shingles 05/27/2011 Completed Tetanus 04/13/2022 Completed TDaP 04/13/2022 Completed Shingles 2 10/05/2018 Completed
--- OUTSIDE RECORDS SUMMARY | 2024-10-03 10:59 | External Medical Summary | Continuity Of Care Document ---
Author Name Unknown Address [address] [facility] () Care Team Providers Care Clam Dredger Name Role Phone DO Machado Amy Primary Care Provider [phone] Allergies Allergy Reaction Start Date End Date [...] 3 0.1 mL 08/29 Inactiv e 2023 33503 09227 0 1 time Intrad ermal False Tubersol 5 tub. unit/0.1 mL intradermal injection solution [Tuberculin PPD] 0.1mL Intradermal 1 time For PPD 2nd Step Give 2nd Step PPD Day 1 and Read results Day 3 (schedule 7 days after 1st READ) 0.1mL 09/08 Inactiv e 2023 05200 72838 0 1 time Intrad ermal False [facility] - Nurse initials indicate verificatio n that [id number] vaccine was administere d by [facility] [...] order For Diabetes 08/25 Inactiv e 2023 40709 85394 9 4 times a day Subcut aneous False Aspirin 325 mg tablet [generic] 325 By Mouth Twice daily For Anticoagulati on 325 09/25 Active 2023 07526 70016 1 Twice daily By Mouth False Ferrous sulfate 325 mg (65 mg iron) tablet [generic] 325 By Mouth Once daily For anemia 325 2023 Active 2023 86023 64262 5 Once daily By Mouth False Linezolid 600 mg tablet [generic] 600 mg By Mouth Every 12 hours For MRSA INFECTION L BKA 600 mg 08/25 Inactiv e 2023 97483 67224 1 Every 12 hours By Mouth False Cefpodoxime 200 mg tablet [generic] 400 mg By Mouth Twice daily For MRSA INFECTION L BKA 400 mg 08/25 Inactiv e 2023 26348 50174 0 Twice daily By Mouth False Coenzyme Q10 100 mg tablet [generic] 100 mg By Mouth Once daily For SUPP 100 mg 2023 Active 2023 98696 24515 0 Once daily By Mouth False Levothyroxi ne 50 mcg tablet [generic] 50mcg By Mouth Once daily For hypothyroidis m 50mcg 2023 Active 2023 63615 41135 0 Once daily By Mouth False One A Day Men Complete 240 mcg-25 mcg-300 mcg tablet 1 tab By Mouth Once daily For supplement 1 tab 2023 Active 2023 33283 31217 1 Once daily By Mouth False Cholecalcif adalberto (vitamin D3) 50 mcg (2,000 unit) tablet [generic] 1 TAB By Mouth Once daily For SUPP 1 TAB 2023 Active 2023 08040 53267 1 Once daily By Mouth False Cetirizine 10 mg tablet [generic] 1 TAB By Mouth At bedtime For Allergies 1 TAB 2023 Active 2023 23614 46463 0 At bedtime By Mouth False Timolol maleate 0.25 % eye drops [generic] 1 drop Both Eyes Twice daily For glaucoma 1 drop 2023 Active 2023 38530 49704 5 Twice daily Both Eyes False Alendronate 35 mg tablet [generic] 35mg By Mouth Every week For SIADH 35mg 08/31 Inactiv e 2023 20096 02243 5 Every week By Mouth False Lantus Solostar U-100 Insulin 100 unit/mL (3 mL) subcutaneou s pen 18 units Subcutaneous Every morning For DIABETES 18 units 08/25 Inactiv e 2023 87728 28081 0 Every morning Subcut aneous False Lantus Solostar U-100 Insulin 100 unit/mL (3 mL) subcutaneou s pen 18 units Subcutaneous Every morning For DIABETES 18 units 2023 Active 2023 09400 73576 0 Every morning Subcut aneous False Linezolid 600 mg tablet [generic] 600 mg By Mouth Every 12 hours For MRSA INFECTION L BKA 600 mg 08/28 Inactiv e 2023 28756 70468 1 Every 12 hours By Mouth False [...] order For Diabetes 08/31 Inactiv e 2023 72778 53969 9 4 times a day Subcut aneous False Cefpodoxime 200 mg tablet [generic] 400 mg By Mouth Twice daily For MRSA INFECTION L BKA 400 mg 08/28 Inactiv e 2023 49052 11055 0 Twice daily By Mouth False Brimonidine 0.1 % eye drops [generic] 1 drop Both Eyes Twice daily For glaucoma 1 drop 2023 Active 2023 47395 70039 0 Twice daily Both Eyes False Metoprolol succinate ER 50 mg tablet,exte nded release 24 hr [generic] 50 mg By Mouth Once daily HOLD FOR SBP <100, or pulse <60 For HTN 50 mg 2023 Active 2023 09286 63354 1 Once daily By Mouth False Amlodipine 2.5 mg tablet [generic] 2.5 mg By Mouth Once daily For HTN 2.5 mg 2023 Active 2023 03623 39344 5 Once daily By Mouth False Docusate sodium 100 mg capsule [generic] 100mg By Mouth Twice daily as needed For constipation HOLD FOR LOOSE STOOLS 100mg 2023 Active 2023 69503 31628 1 Twice daily as needed By Mouth False Atorvastati n 40 mg tablet [generic] 40mg By Mouth Once daily For HDL 40mg 08/26 Inactiv e 2023 16448 78451 5 Once daily By Mouth False Tylenol 325 mg tablet 2 tabs By Mouth Every 4 hours as needed For Pain DO NOT EXCEED 3000 MG APAP/24 Hours 2 tabs 2023 Active 2023 21659 19470 0 Every 4 hours as needed By Mouth False Tylenol 325 mg tablet 2 tabs By Mouth Every 4 hours as needed For Fever >100 DO NOT EXCEED 3000 MG APAP/24 Hours 2 tabs 2023 Active 2023 06697 44034 0 Every 4 hours as needed By Mouth False Dulcolax (bisacodyl) 10 mg rectal suppository One Suppository per rectum PRN if Milk of Magnisia ineffective. Give on day 5 of no BM 1 sup 2023 Active 2023 32329 43190 1 Daily as needed Rectal False Fleet Enema 19 gram-7 gram/118 mL Administer per rectum PRN one time if dulcolax suppository not effective. Give on day 6 of no BM 1 2023 Active 2023 32715 79558 6 Daily as needed Rectal False Dextrose 50 % in water (D50W) intravenous solution [generic] Dextrose 50% evonne 20-50 ml (slow push) Intravenous if Glucagon not effective after 15 minutes. CALL 911 for ED Evaluation. 50% evonne 2023 Active 2023 61927 26359 9 Intrav enous False Glucagon (HCl) Emergency Kit 1 mg solution for injection Administer Glucagon 1 mg Intramuscular if 15 minutes after GLucose Gel is administered Glucose remains less than 70 1 mg 2023 Active 2023 30492 03250 2 Intram uscula r False Glucose Gel 40 % oral gel [Dextrose] PRN If resident is unable to swallow (with or without symptoms) and Glucose results less than 70 give GLucose 40% Gel 1 tube orally - Recheck Glucose 15 minutes after administratio n. 1 tube 2023 Active 2023 00323 02724 8 By Mouth False Milk of Magnesia 400 mg/5 mL oral suspension [Magnesium hydroxide] PRN 30ml By Mouth Daily as needed for constipation one time daily if no BM, on day 4 of no BM (PRN refer to instructions) For Constipation 30 mL 2023 Active 2023 66123 95752 6 Daily as needed By Mouth False Atorvastati n 40 mg tablet [generic] 08/26 Inactiv e 2023 78455 42263 5 Atorvastati n 40 mg tablet [generic] 40mg By Mouth Once daily For HDL 40mg 2023 Active 2023 32939 36193 5 Once daily By Mouth False Insulin aspart (U-100) 100 unit/mL (3 mL) subcutaneou s pen [generic] 15 units Subcutaneous 1 time For dm 15 units 08/26 Inactiv e 2023 35613 34221 5 1 time Subcut aneous False Humalog KwikPen (U-100) Insulin 100 unit/mL subcutaneou s 15 units Subcutaneous 1 time For dm 15 units 08/27 Inactiv e 2023 15112 08255 9 1 time Subcut aneous False Linezolid 600 mg tablet [generic] 600 mg By Mouth Every 12 hours For MRSA INFECTION L BKA 600 mg 09/06 Inactiv e 2023 38328 34630 1 Every 12 hours By Mouth False Cefpodoxime 200 mg tablet [generic] 400 mg By Mouth Twice daily For MRSA INFECTION L BKA 400 mg 08/31 Inactiv e 2023 29460 27966 0 Twice daily By Mouth False Senna 8.6 mg tablet 8.6 mg By Mouth Once daily For Constipation 8.6 mg 09/07 Inactiv e 2023 24418 18026 1 Once daily By Mouth False Humalog [...] abnormalities . Per Carb 2023 Active 2023 81546 13646 9 4 times a day Subcut aneous False Alendronate 35 mg tablet [generic] 08/31 Inactiv e 2023 30295 19783 5 Alendronate 35 mg tablet [generic] 35mg By Mouth Every week For Osteoporosis 35mg 202300 /0000 Active 2023 98375 86339 5 Every week By Mouth False ProSource 10 gram-100 kcal/30 mL oral liquid 30 ml By Mouth Once daily For wound healing 30 ml 2023 Active 2023 93621 38235 2 Once daily By Mouth False Clotrimazol e 1 % topical cream [generic] 1 applicaiton Topical Twice daily For tinea, apply to groin rash after cleansing and throughouly drying. Can discontinue order 3 days after rash resolves. 1 applica stacy 09/08 Inactiv e 2023 00206 60321 0 Twice daily Topica l False MAGIC MIX 1:1:1:1 : ZINC OXIDE EXTERNAL OINTMENT 40%; HYDROCOTISO NE EXTERNAL CREAM 1%; NYSTATIN EXTERNAL CREAM 822165M/GM; SILVADENE CREAM 1% Every shift Apply topically to MASD area on coccyx/buttoc ks each shift and as needed for incontinence care For MASD on coccyx layer 2023 Active 2023 Every shift Topica l False Senna 8.6 mg tablet 8.6 mg By Mouth Once daily For Constipation 8.6 mg 09/07 Inactiv e 2023 60497 56886 1 Once daily By Mouth False Senna 8.6 mg tablet 8.6 mg By Mouth Once daily As Needed For Constipation 8.6 mg 2023 Active 2023 94298 07662 1 Once daily By Mouth False BD AutoShield Duo Pen Needle 30 gauge x 3/16in 1 pen needle Subcutaneous 4 times a day For DM 1 pen needle 2023 Active 2023 01945 72386 5 4 times a day Subcut aneous False Hydrocortis one 1 % topical ointment [generic] 1 application Topical Twice daily For tinea *mix 1:1 with clotrimazole cream and apply to clean/dry groin rash 1 applica peggy 09/19 Active 2023 52855 84689 6 Twice daily Topica l False Clotrimazol e 1 % topical cream [generic] 1 applicaiton Topical Twice daily For tinea, apply to groin rash after cleansing and throughouly drying. MIX WITH HYDROCORTISON E Can discontinue order 3 days after rash resolves. 1 applica stacy 2023 Active 2023 22394 33177 0 Twice daily Topica l False Humalog KwikPen (U-100) Insulin 100 unit/mL subcutaneou s 08/31 Inactiv e 2023 44556 29942 9 MediHoney HCS 4 1/2in X 4 1/2in bandage Cleanse area with NSS, [facility] dressing, non adherent dressing, kerlix secure with paper tape daily. For wound stage III 1 2023 Active 2023 42572 42708 1 Once daily Topica l False Problems Code Description Start Date End Date Status D64.9 Anemia, unspecified 08/25/2024 Activ e I25.10 Atherosclerotic hear t disease of [place] coronary artery without angina pectoris 08/25/2024 Active [...] weight Temperature SpO2 Blood Sugar Pulse Respirations 81882 8 67.00 mm[Hg] - Sitting 145.00 mm[Hg] - Sitting 98.50 Forehead Scan 96.00 % 81.00/ min 16.00/min 004 91205 2 67.00 mm[Hg] - Sitting 145.00 mm[Hg] - Sitting 98.50 Tympanic 81.00/ min 16.00/min 004 19566 5 56.00 mm[Hg] - Sitting 142.00 mm[Hg] - Sitting 136.40 NI 100.20 Tympanic 96.00 % 92.00/ min 18.00/min 12287 004 46046 6 45718 004 52563 4 143.00 mg/dL 35011 0 97.80 Tympanic 005 39058 7 60.00 mm[Hg] - Sitting 140.00 mm[Hg] - Sitting 98.00 Tympanic 84.00/ min 18.00/min 15455 005 03825 0 63.00 mm[Hg] - Sitting 141.00 mm[Hg] - Sitting 98.20 Tympanic 92.00 % 63.00/ min 16.00/min 83823 005 33395 8 69.00 mm[Hg] - Sitting 106.00 mm[Hg] - Sitting 97.20 Tympanic 005 88690 7 69.00/ min 16.00/min 43977 005 19179 3 69.00 mm[Hg] - Sitting 106.00 mm[Hg] - Sitting 98.20 Tympanic 69.00/ min 16.00/min 86473 005 32805 1 367.00 mg/dL 07450 005 84310 2 97.20 Tympanic 66973 005 32270 4 97.20 Tympanic 91266 005 28499 0 69.00 mm[Hg] - Sitting 106.00 mm[Hg] - Sitting 69.00/ min 37599 005 62702 3 452.00 mg/dL 54440 005 95235 3 452.00 mg/dL 48541 005 60517 5 352.00 mg/dL 71125 005 13373 3 352.00 mg/dL 12006 005 50931 7 98.20 Tympanic 92031 005 3 101.00 mg/dL 15709 005 8 101.00 mg/dL 32621 006 66974 4 66.00 mm[Hg] - Sitting 107.00 mm[Hg] - Sitting 98.00 Tympanic 66.00/ min 18.00/min 87468 006 97992 0 62.00 mm[Hg] - Sitting 162.00 mm[Hg] - Sitting 98.20 Tympanic 96.00 % 60.00/ min 16.00/min 83573 006 36898 4 62.00 mm[Hg] - Sitting 162.00 mm[Hg] - Sitting 98.00 Tympanic 70.00/ min 18.00/min 97380 006 77386 8 62.00 mm[Hg] - Sitting 162.00 mm[Hg] - Sitting 98.20 Tympanic 70.00/ min 18.00/min 89630 006 65557 2 66.00 mm[Hg] - Sitting 132.00 mm[Hg] - Sitting 98.60 Tympanic 74.00/ min 16.00/min 53813 006 56518 5 159.00 mg/dL 22589 006 15760 1 159.00 mg/dL 06245 006 30245 8 98.00 Tympanic 87007 006 04495 2 62.00 mm[Hg] - Sitting 162.00 mm[Hg] - Sitting 70.00/ min 10938 006 75535 7 264.00 mg/dL 11620 006 97901 7 264.00 mg/dL 65763 006 58786 4 196.00 mg/dL 73011 006 96262 3 98.20 Tympanic 87597 006 96854 6 271.00 mg/dL 31589 007 02631 3 97.20 Tympanic 36328 007 94229 2 63.00 mm[Hg] - Sitting 132.00 mm[Hg] - Sitting 98.50 Tympanic 94.00 % 66.00/ min 16.00/min 71656 007 82102 5 188.00 mg/dL 92198 007 61128 2 188.00 mg/dL 60726 007 95818 2 188.00 mg/dL 00216 007 07285 7 97.20 Tympanic 92390 007 11920 6 97.20 Tympanic 59569 007 24610 5 67.00 mm[Hg] - Sitting 152.00 mm[Hg] - Sitting 68.00/ min 77152 007 96636 0 141.00 mg/dL 69245 007 90627 3 141.00 mg/dL 31598 007 07414 1 366.00 mg/dL 45812 007 14811 7 366.00 mg/dL 16778 007 40679 7 98.00 Tympanic 97083 007 32062 6 324.00 mg/dL 77369 007 50617 3 98.00 Tympanic 44987 007 98808 7 324.00 mg/dL 72566 008 29103 0 98.00 Tympanic 26753 008 31939 2 97.90 Tympanic 91616 008 95794 0 98.20 Tympanic 65154 008 95227 0 73.00 mm[Hg] - Sitting 156.00 mm[Hg] - Sitting 98.60 Tympanic 99.00 % 66.00/ min 20.00/min 72645 008 63128 5 137.00 mg/dL 74420 008 70790 7 137.00 mg/dL 35645 008 22173 2 97.90 Tympanic 34153 008 96369 1 137.00 mg/dL 29526 008 86746 8 97.90 Tympanic 87710 008 41449 5 67.00 mm[Hg] - Sitting 124.00 /min 80754 008 93494 6 212.00 mg/dL 31830 008 03422 6 212.00 mg/dL 08424 008 81525 9 317.00 mg/dL 92960 008 22147 4 317.00 mg/dL 19985 008 43461 8 252.00 mg/dL 73951 008 52201 0 98.70 Tympanic 86941 008 56618 7 252.00 mg/dL 04477 008 76327 3 98.70 Tympanic 60862 009 33850 9 98.70 Tympanic 28692 009 85088 3 98.20 Tympanic 45567 009 29247 5 98.40 Tympanic 20424 009 46001 5 57.00 mm[Hg] - Sitting 129.00 mm[Hg] - Sitting 98.30 Tympanic 97.00 % 65.00/ min 18.00/min 65511 009 72702 1 255.00 mg/dL 72311 009 31328 4 255.00 mg/dL 75116 009 82510 5 98.20 Tympanic 61015 009 14901 0 255.00 mg/dL 97254 009 29341 0 98.20 Tympanic 33817 009 26515 4 63.00 mm[Hg] - Lying Down 102.00 mm[Hg] - Lying Down 58.00/ min 80435 009 10580 0 167.00 mg/dL 93294 009 80144 1 167.00 mg/dL 79471 009 07944 2 164.00 mg/dL 43104 009 51686 1 164.00 mg/dL 05840 009 37228 5 208.00 mg/dL 68652 010 15181 3 98.40 Tympanic 29164 010 23898 5 98.40 Tympanic 09899 010 06441 7 66 [place] [address] 010 44412 4 60.00 mm[Hg] - Sitting 143.00 mm[Hg] - Sitting 98.90 Tympanic 98.00 % 67.00/ min 18.00/min 97537 010 95442 2 214.00 mg/dL 29928 010 83078 0 214.00 mg/dL 28661 010 30626 7 214.00 mg/dL 38732 010 38037 6 64.00 mm[Hg] - Sitting 110.00 mm[Hg] - Sitting 72.00/ min 89970 010 63094 7 98.40 Tympanic 97570 010 20494 1 212.00 mg/dL 28478 010 70489 2 212.00 mg/dL 83640 010 05639 1 115.00 mg/dL 51670 010 22797 0 115.00 mg/dL 62058 010 38761 4 98.50 Tympanic 79747 010 52342 4 150.00 mg/dL 98126 010 65453 0 150.00 mg/dL 61754 011 07659 9 98.60 Tympanic 91848 011 64383 1 67.00 mm[Hg] - Sitting 144.00 mm[Hg] - Sitting 98.20 Tympanic 98.00 % 61.00/ min 18.00/min 18440 011 12723 7 290.00 mg/dL 50001 011 94856 2 290.00 mg/dL 23753 011 18402 2 290.00 mg/dL 51466 011 32612 7 54.00 mm[Hg] - Sitting 136.00 mm[Hg] - Sitting 101.00 /min 91156 011 74755 7 98.60 Tympanic 94506 011 04870 5 240.00 mg/dL 97724 011 40134 1 240.00 mg/dL 15297 011 21977 1 156.00 mg/dL 50554 011 72465 9 156.00 mg/dL 16208 011 80325 0 97.80 Tympanic 92991 011 17912 8 343.00 mg/dL 60416 012 08823 9 97.90 Tympanic 42775 012 64959 2 466.00 mg/dL 31662 012 15374 1 466.00 mg/dL 36670 012 97566 3 466.00 mg/dL 04333 012 93258 8 97.90 Tympanic 55164 012 08516 8 56.00 mm[Hg] - Sitting 96.00 mm[Hg] - Sitting 61.00/ min 84693 012 93844 7 350.00 mg/dL 49600 012 29868 5 350.00 mg/dL 85874 012 24452 6 111.00 mg/dL 89976 012 45198 0 111.00 mg/dL 58410 012 52270 5 98.40 Tympanic 21681 012 75750 6 114.00 mg/dL 81656 013 84918 4 74.00 mm[Hg] - Sitting 112.00 mm[Hg] - Sitting 98.40 Tympanic 70.00/ min 18.00/min 10329 013 82026 8 244.00 mg/dL 00618 013 18214 7 244.00 mg/dL 47104 013 74487 1 244.00 mg/dL 50228 013 09822 1 98.20 Tympanic 29185 013 04433 7 72.00 mm[Hg] - Sitting 119.00 mm[Hg] - Sitting 76.00/ min 12856 013 52774 7 253.00 mg/dL 37295 013 67738 4 253.00 mg/dL 81671 013 57771 9 156.00 mg/dL 82645 013 60099 5 156.00 mg/dL 06836 013 02903 4 97.90 Tympanic 95940 013 35087 5 189.00 mg/dL 68457 014 53134 9 98.10 Tympanic 66888 014 65428 0 61.00 mm[Hg] - Sitting 139.00 mm[Hg] - Sitting 98.20 Forehead Scan 99.00 % 66.00/ min 18.00/min 42604 014 78181 3 169.00 mg/dL 00661 014 77569 3 98.10 Tympanic 14316 014 91009 3 75.00 mm[Hg] - Sitting 121.00 mm[Hg] - Sitting 71.00/ min 01730 014 64430 9 221.00 mg/dL 13622 014 24895 9 62.00 mg/dL 13096 014 71352 5 62.00 mg/dL 16536 014 67162 8 156.00 mg/dL 07276 014 80438 6 98.10 Tympanic 43524 014 99142 7 156.00 mg/dL 50950 015 82604 4 57838 015 03172 7 62.00 mm[Hg] - Sitting 142.00 mm[Hg] - Sitting 98.20 Tympanic 99.00 % 67.00/ min 18.00/min 60779 015 18240 9 120.00 mg/dL 84633 015 79501 7 98.00 Tympanic 61400 015 45309 2 82.00 mm[Hg] - Sitting 119.00 /min 01657 015 41079 9 110.00 mg/dL 38253 015 98412 6 104.00 mg/dL 66552 015 68370 0 100.00 mg/dL 49940 015 39960 2 98.10 Tympanic 78444 015 15092 6 100.00 mg/dL 59700 016 48618 2 67.00 mm[Hg] - Sitting 147.00 mm[Hg] - Sitting 99.00 Tympanic 99.00 % 78.00/ min 20.00/min 25112 016 84922 5 158.00 mg/dL 37648 016 16338 1 158.00 mg/dL 24077 016 65141 2 158.00 mg/dL 91466 016 84661 0 66.00 mm[Hg] - Sitting 121.00 mm[Hg] - Sitting 74.00/ min 88135 016 34108 1 97.00 mg/dL 25826 016 61579 5 97.00 mg/dL 02791 016 64985 4 78.00 mg/dL 24021 016 82330 6 78.00 mg/dL 70119 016 56342 5 248.00 mg/dL 03989 016 37903 8 248.00 mg/dL 13077 017 31040 3 54.00 mm[Hg] - Sitting 142.00 mm[Hg] - Sitting 98.30 Tympanic 99.00 % 76.00/ min 18.00/min 85414 017 21558 4 267.00 mg/dL 65164 017 55831 6 73.00 mm[Hg] - Sitting 109.00 mm[Hg] - Sitting 70.00/ min 91729 017 96245 1 184.00 mg/dL 45278 017 57160 5 184.00 mg/dL 49987 017 67006 9 248.00 mg/dL 57804 017 29018 8 299.00 mg/dL 60002 017 79632 3 299.00 mg/dL 70307 018 75131 7 50.00 mm[Hg] - Sitting 125.00 mm[Hg] - Sitting 98.30 Tympanic 98.00 % 76.00/ min 16.00/min 80853 018 47011 3 168.00 mg/dL 42513 018 48760 0 75.00 mm[Hg] - Sitting 121.00 mm[Hg] - Sitting 70.00/ min 45603 018 79492 7 264.00 mg/dL 59240 018 67047 6 132.00 mg/dL 62099 018 78685 6 154.00 mg/dL 00528 018 13123 6 154.00 mg/dL 41686 019 80657 4 63.00 mm[Hg] - Sitting 147.00 mm[Hg] - Sitting 98.50 Tympanic 99.00 % 69.00/ min 18.00/min 08574 019 75501 9 159.00 mg/dL 99686 019 94926 8 73.00 mm[Hg] - Sitting 110.00 mm[Hg] - Sitting 72.00/ min 15030 019 69870 4 191.00 mg/dL 71550 019 24619 8 70.00 mg/dL 71951 019 42001 4 70.00 mg/dL 37851 019 00987 6 198.00 mg/dL 93617 019 35358 0 198.00 mg/dL 04015 020 16767 2 59.00 mm[Hg] - Sitting 131.00 mm[Hg] - Sitting 98.90 Tympanic 99.00 % 69.00/ min 18.00/min 51046 020 36827 7 299.00 mg/dL 12131 020 12352 0 62.00 mm[Hg] - Sitting 132.00 mm[Hg] - Sitting 68.00/ min 53072 020 97905 3 299.00 mg/dL 12625 020 80875 3 299.00 mg/dL 40976 020 83096 9 220.00 mg/dL 55575 020 54797 1 220.00 mg/dL 98629 020 53387 1 270.00 mg/dL 60683 020 56513 4 270.00 mg/dL 68307 020 06912 9 143.00 mg/dL 52581 020 00038 4 143.00 mg/dL 77515 021 26586 0 59.00 mm[Hg] - Sitting 121.00 mm[Hg] - Sitting 98.40 Forehead Scan 98.00 % 70.00/ min 16.00/min 61227 021 23667 0 140.00 mg/dL 21007 021 98516 0 67.00 mm[Hg] - Sitting 130.00 mm[Hg] - Sitting 68.00/ min 90042 021 98728 8 140.00 mg/dL 92908 021 77512 6 140.00 mg/dL 07934 021 62760 8 156.00 mg/dL 20514 021 68602 1 156.00 mg/dL 86163 021 92943 5 146.00 mg/dL 30773 021 84305 4 146.00 mg/dL 25916 021 74775 5 183.00 mg/dL 17785 021 84438 2 183.00 mg/dL 54336 022 46823 3 83667 022 01445 1 43.00 mm[Hg] - Sitting 113.00 mm[Hg] - Sitting 97.80 Tympanic 97.00 % 64.00/ min 18.00/min 91556 022 82523 6 270.00 mg/dL 20039 022 02272 5 68.00 mm[Hg] - Sitting 122.00 mm[Hg] - Sitting 67.00/ min 73051 022 15288 9 270.00 mg/dL 27970 022 28496 4 270.00 mg/dL 42781 022 74801 4 207.00 mg/dL 55585 022 67820 8 207.00 mg/dL 93016 022 98898 9 217.00 mg/dL 67220 022 25507 2 217.00 mg/dL 13259 022 49242 0 192.00 mg/dL 36740 022 37829 9 192.00 mg/dL 03876 023 56339 8 48.00 mm[Hg] - Sitting 116.00 mm[Hg] - Sitting 98.50 Tympanic 97.00 % 63.00/ min 18.00/min 11887 023 26228 9 68.00 mm[Hg] - Sitting 131.00 mm[Hg] - Sitting 68.00/ min 11280 023 66492 8 235.00 mg/dL 36712 023 75915 4 235.00 mg/dL 89842 023 18662 0 235.00 mg/dL 17143 023 32168 0 199.00 mg/dL 61824 023 08716 7 199.00 mg/dL 73219 023 30788 4 233.00 mg/dL 00730 023 03934 3 233.00 mg/dL 15555 023 99661 6 229.00 mg/dL 17333 023 08004 4 229.00 mg/dL 74957 024 14446 3 58.00 mm[Hg] - Sitting 102.00 mm[Hg] - Sitting 58.00/ min 74621 024 72744 9 156.00 mg/dL 97666 024 05978 4 156.00 mg/dL 34561 024 20596 3 156.00 mg/dL 28253 024 82402 0 343.00 mg/dL 04182 024 03459 6 343.00 mg/dL 88553 024 73694 2 167.00 mg/dL 32213 024 54150 0 167.00 mg/dL 15812 024 26837 8 155.00 mg/dL 41689 024 64778 7 155.00 mg/dL 59122 025 36478 0 51.00 mm[Hg] - Lying Down 109.00 mm[Hg] - Lying Down 98.60 Tympanic 95.00 % 67.00/ min 20.00/min 60978 025 48804 0 60.00 mm[Hg] - Sitting 118.00 mm[Hg] - Sitting 98.30 Forehead Scan 98.00 % 68.00/ min 16.00/min 81482 025 42095 3 235.00 mg/dL 79673 025 39788 1 63.00 mm[Hg] - Sitting 110.00 mm[Hg] - Sitting 75.00/ min 01932 025 47517 9 295.00 mg/dL 63443 025 75136 4 94.00 mg/dL 43301 025 62133 1 132.00 mg/dL 95366 025 69394 2 132.00 mg/dL 56013 026 95413 8 50.00 mm[Hg] - Sitting 123.00 mm[Hg] - Sitting 98.50 Tympanic 95.00 % 66.00/ min 18.00/min 28659 026 10622 0 275.00 mg/dL 52573 026 16717 7 275.00 mg/dL 66104 026 91423 1 275.00 mg/dL 93866 026 96962 6 67.00 mm[Hg] - Sitting 123.00 mm[Hg] - Sitting 66.00/ min 21747 026 55946 3 187.00 mg/dL 27638 026 29499 5 187.00 mg/dL 69254 026 58158 0 167.00 mg/dL 90700 026 22515 8 167.00 mg/dL 99098 026 13405 6 387.00 mg/dL 75838 027 22222 9 189.00 mg/dL 24187 027 77724 4 67.00 mm[Hg] - Sitting 118.00 mm[Hg] - Sitting 66.00/ min 37022 027 79236 2 189.00 mg/dL 90939 027 56817 7 189.00 mg/dL Immunizations Vaccine Date Status COVID-19 09/20/2023 Completed Influenza 09/14/2024 Completed Other 10/08/2023 Completed Shingles 05/27/2011 Completed Tetanus 04/13/2022 Completed TDaP 04/13/2022 Completed Shingles 2 10/05/2018 Completed
--- OUTSIDE RECORDS SUMMARY | 2024-10-03 10:59 | External Medical Summary | Continuity Of Care Document ---
Author Name Unknown Address [address] [address] Organization [facility] () Care Team Providers Care Production Controller Name Role Phone DO Machado Amy Primary Care Provider [phone] Allergies Allergy Reaction Start Date End Date [...] 3 0.1 mL 08/29 Inactiv e 2023 24930 55220 0 1 time Intrad ermal False Tubersol 5 tub. unit/0.1 mL intradermal injection solution [Tuberculin PPD] 0.1mL Intradermal 1 time For PPD 2nd Step Give 2nd Step PPD Day 1 and Read results Day 3 (schedule 7 days after 1st READ) 0.1mL 09/08 Inactiv e 2023 68805 20355 0 1 time Intrad ermal False [facility] - Nurse initials indicate verificatio n that [id number] vaccine was administere d by [facility] [...] order For Diabetes 08/25 Inactiv e 2023 40134 52014 9 4 times a day Subcut aneous False Aspirin 325 mg tablet [generic] 325 By Mouth Twice daily For Anticoagulati on 325 09/25 Active 2023 55937 65298 1 Twice daily By Mouth False Ferrous sulfate 325 mg (65 mg iron) tablet [generic] 325 By Mouth Once daily For anemia 325 2023 Active 2023 10479 90266 5 Once daily By Mouth False Linezolid 600 mg tablet [generic] 600 mg By Mouth Every 12 hours For MRSA INFECTION L BKA 600 mg 08/25 Inactiv e 2023 00039 26001 1 Every 12 hours By Mouth False Cefpodoxime 200 mg tablet [generic] 400 mg By Mouth Twice daily For MRSA INFECTION L BKA 400 mg 08/25 Inactiv e 2023 36687 32913 0 Twice daily By Mouth False Coenzyme Q10 100 mg tablet [generic] 100 mg By Mouth Once daily For SUPP 100 mg 2023 Active 2023 69593 05608 0 Once daily By Mouth False Levothyroxi ne 50 mcg tablet [generic] 50mcg By Mouth Once daily For hypothyroidis m 50mcg 2023 Active 2023 67348 97152 0 Once daily By Mouth False One A Day Men Complete 240 mcg-25 mcg-300 mcg tablet 1 tab By Mouth Once daily For supplement 1 tab 2023 Active 2023 29478 41401 1 Once daily By Mouth False Cholecalcif adalberto (vitamin D3) 50 mcg (2,000 unit) tablet [generic] 1 TAB By Mouth Once daily For SUPP 1 TAB 2023 Active 2023 30418 45062 1 Once daily By Mouth False Cetirizine 10 mg tablet [generic] 1 TAB By Mouth At bedtime For Allergies 1 TAB 2023 Active 2023 35620 10924 0 At bedtime By Mouth False Timolol maleate 0.25 % eye drops [generic] 1 drop Both Eyes Twice daily For glaucoma 1 drop 2023 Active 2023 03040 39909 5 Twice daily Both Eyes False Alendronate 35 mg tablet [generic] 35mg By Mouth Every week For SIADH 35mg 08/31 Inactiv e 2023 22292 78000 5 Every week By Mouth False Lantus Solostar U-100 Insulin 100 unit/mL (3 mL) subcutaneou s pen 18 units Subcutaneous Every morning For DIABETES 18 units 08/25 Inactiv e 2023 32111 24699 0 Every morning Subcut aneous False Lantus Solostar U-100 Insulin 100 unit/mL (3 mL) subcutaneou s pen 18 units Subcutaneous Every morning For DIABETES 18 units 2023 Active 2023 73950 38681 0 Every morning Subcut aneous False Linezolid 600 mg tablet [generic] 600 mg By Mouth Every 12 hours For MRSA INFECTION L BKA 600 mg 08/28 Inactiv e 2023 73207 24439 1 Every 12 hours By Mouth False [...] order For Diabetes 08/31 Inactiv e 2023 92019 72542 9 4 times a day Subcut aneous False Cefpodoxime 200 mg tablet [generic] 400 mg By Mouth Twice daily For MRSA INFECTION L BKA 400 mg 08/28 Inactiv e 2023 24539 53290 0 Twice daily By Mouth False Brimonidine 0.1 % eye drops [generic] 1 drop Both Eyes Twice daily For glaucoma 1 drop 2023 Active 2023 73750 87653 0 Twice daily Both Eyes False Metoprolol succinate ER 50 mg tablet,exte nded release 24 hr [generic] 50 mg By Mouth Once daily HOLD FOR SBP <100, or pulse <60 For HTN 50 mg 2023 Active 2023 10050 13667 1 Once daily By Mouth False Amlodipine 2.5 mg tablet [generic] 2.5 mg By Mouth Once daily For HTN 2.5 mg 2023 Active 2023 03909 85556 5 Once daily By Mouth False Docusate sodium 100 mg capsule [generic] 100mg By Mouth Twice daily as needed For constipation HOLD FOR LOOSE STOOLS 100mg 2023 Active 2023 98099 04438 1 Twice daily as needed By Mouth False Atorvastati n 40 mg tablet [generic] 40mg By Mouth Once daily For HDL 40mg 08/26 Inactiv e 2023 85880 57022 5 Once daily By Mouth False Tylenol 325 mg tablet 2 tabs By Mouth Every 4 hours as needed For Pain DO NOT EXCEED 3000 MG APAP/24 Hours 2 tabs 2023 Active 2023 59664 50449 0 Every 4 hours as needed By Mouth False Tylenol 325 mg tablet 2 tabs By Mouth Every 4 hours as needed For Fever >100 DO NOT EXCEED 3000 MG APAP/24 Hours 2 tabs 2023 Active 2023 51027 95521 0 Every 4 hours as needed By Mouth False Dulcolax (bisacodyl) 10 mg rectal suppository One Suppository per rectum PRN if Milk of Magnisia ineffective. Give on day 5 of no BM 1 sup 2023 Active 2023 24213 31637 1 Daily as needed Rectal False Fleet Enema 19 gram-7 gram/118 mL Administer per rectum PRN one time if dulcolax suppository not effective. Give on day 6 of no BM 1 2023 Active 2023 76192 11523 6 Daily as needed Rectal False Dextrose 50 % in water (D50W) intravenous solution [generic] Dextrose 50% evonne 20-50 ml (slow push) Intravenous if Glucagon not effective after 15 minutes. CALL 911 for ED Evaluation. 50% evonne 2023 Active 2023 81547 96981 9 Intrav enous False Glucagon (HCl) Emergency Kit 1 mg solution for injection Administer Glucagon 1 mg Intramuscular if 15 minutes after GLucose Gel is administered Glucose remains less than 70 1 mg 2023 Active 2023 05713 32774 2 Intram uscula r False Glucose Gel 40 % oral gel [Dextrose] PRN If resident is unable to swallow (with or without symptoms) and Glucose results less than 70 give GLucose 40% Gel 1 tube orally - Recheck Glucose 15 minutes after administratio n. 1 tube 2023 Active 2023 85729 80382 8 By Mouth False Milk of Magnesia 400 mg/5 mL oral suspension [Magnesium hydroxide] PRN 30ml By Mouth Daily as needed for constipation one time daily if no BM, on day 4 of no BM (PRN refer to instructions) For Constipation 30 mL 2023 Active 2023 06718 97022 6 Daily as needed By Mouth False Atorvastati n 40 mg tablet [generic] 08/26 Inactiv e 2023 65494 64919 5 Atorvastati n 40 mg tablet [generic] 40mg By Mouth Once daily For HDL 40mg 2023 Active 2023 75609 77992 5 Once daily By Mouth False Insulin aspart (U-100) 100 unit/mL (3 mL) subcutaneou s pen [generic] 15 units Subcutaneous 1 time For dm 15 units 08/26 Inactiv e 2023 89793 92643 5 1 time Subcut aneous False Humalog KwikPen (U-100) Insulin 100 unit/mL subcutaneou s 15 units Subcutaneous 1 time For dm 15 units 08/27 Inactiv e 2023 58918 86593 9 1 time Subcut aneous False Linezolid 600 mg tablet [generic] 600 mg By Mouth Every 12 hours For MRSA INFECTION L BKA 600 mg 09/06 Inactiv e 2023 08483 90309 1 Every 12 hours By Mouth False Cefpodoxime 200 mg tablet [generic] 400 mg By Mouth Twice daily For MRSA INFECTION L BKA 400 mg 08/31 Inactiv e 2023 65414 34677 0 Twice daily By Mouth False Senna 8.6 mg tablet 8.6 mg By Mouth Once daily For Constipation 8.6 mg 09/07 Inactiv e 2023 55293 75590 1 Once daily By Mouth False Humalog [...] abnormalities . Per Carb 2023 Active 2023 62759 39846 9 4 times a day Subcut aneous False Alendronate 35 mg tablet [generic] 08/31 Inactiv e 2023 98290 60474 5 Alendronate 35 mg tablet [generic] 35mg By Mouth Every week For Osteoporosis 35mg 202300 /0000 Active 2023 19598 63111 5 Every week By Mouth False ProSource 10 gram-100 kcal/30 mL oral liquid 30 ml By Mouth Once daily For wound healing 30 ml 2023 Active 2023 54975 48708 2 Once daily By Mouth False Clotrimazol e 1 % topical cream [generic] 1 applicaiton Topical Twice daily For tinea, apply to groin rash after cleansing and throughouly drying. Can discontinue order 3 days after rash resolves. 1 applica stacy 09/08 Inactiv e 2023 09754 94273 0 Twice daily Topica l False MAGIC MIX 1:1:1:1 : ZINC OXIDE EXTERNAL OINTMENT 40%; HYDROCOTISO NE EXTERNAL CREAM 1%; NYSTATIN EXTERNAL CREAM 352321M/GM; SILVADENE CREAM 1% Every shift Apply topically to MASD area on coccyx/buttoc ks each shift and as needed for incontinence care For MASD on coccyx layer 2023 Active 2023 Every shift Topica l False Senna 8.6 mg tablet 8.6 mg By Mouth Once daily For Constipation 8.6 mg 09/07 Inactiv e 2023 19095 12861 1 Once daily By Mouth False Senna 8.6 mg tablet 8.6 mg By Mouth Once daily As Needed For Constipation 8.6 mg 2023 Active 2023 05772 56460 1 Once daily By Mouth False BD AutoShield Duo Pen Needle 30 gauge x 3/16in 1 pen needle Subcutaneous 4 times a day For DM 1 pen needle 2023 Active 2023 82994 73167 5 4 times a day Subcut aneous False Hydrocortis one 1 % topical ointment [generic] 1 application Topical Twice daily For tinea *mix 1:1 with clotrimazole cream and apply to clean/dry groin rash 1 applica peggy 09/19 Active 2023 81760 94720 6 Twice daily Topica l False Clotrimazol e 1 % topical cream [generic] 1 applicaiton Topical Twice daily For tinea, apply to groin rash after cleansing and throughouly drying. MIX WITH HYDROCORTISON E Can discontinue order 3 days after rash resolves. 1 applica stacy 2023 Active 2023 95042 60006 0 Twice daily Topica l False Humalog KwikPen (U-100) Insulin 100 unit/mL subcutaneou s 08/31 Inactiv e 2023 19534 54698 9 MediHoney HCS 4 1/2in X 4 1/2in bandage Cleanse area with NSS, [facility] dressing, non adherent dressing, kerlix secure with paper tape daily. 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 08/25/2024 [...] weight Temperature SpO2 Blood Sugar Pulse Respirations 52631 8 67.00 mm[Hg] - Sitting 145.00 mm[Hg] - Sitting 98.50 Forehead Scan 96.00 % 81.00/ min 16.00/min 004 35484 2 67.00 mm[Hg] - Sitting 145.00 mm[Hg] - Sitting 98.50 Tympanic 81.00/ min 16.00/min 004 64608 5 56.00 mm[Hg] - Sitting 142.00 mm[Hg] - Sitting 136.40 NI 100.20 Tympanic 96.00 % 92.00/ min 18.00/min 73967 004 65970 6 44642 004 78148 4 143.00 mg/dL 93087 0 97.80 Tympanic 005 66792 7 60.00 mm[Hg] - Sitting 140.00 mm[Hg] - Sitting 98.00 Tympanic 84.00/ min 18.00/min 66052 005 95730 0 63.00 mm[Hg] - Sitting 141.00 mm[Hg] - Sitting 98.20 Tympanic 92.00 % 63.00/ min 16.00/min 85740 005 70833 8 69.00 mm[Hg] - Sitting 106.00 mm[Hg] - Sitting 97.20 Tympanic 005 46485 7 69.00/ min 16.00/min 11102 005 76136 3 69.00 mm[Hg] - Sitting 106.00 mm[Hg] - Sitting 98.20 Tympanic 69.00/ min 16.00/min 22117 005 02371 1 367.00 mg/dL 92247 005 80715 2 97.20 Tympanic 68911 005 46326 4 97.20 Tympanic 00022 005 04747 0 69.00 mm[Hg] - Sitting 106.00 mm[Hg] - Sitting 69.00/ min 22085 005 04541 3 452.00 mg/dL 09010 005 38609 3 452.00 mg/dL 63622 005 75047 5 352.00 mg/dL 93941 005 34915 3 352.00 mg/dL 39740 005 68663 7 98.20 Tympanic 90896 005 3 101.00 mg/dL 87802 005 8 101.00 mg/dL 01828 006 00197 4 66.00 mm[Hg] - Sitting 107.00 mm[Hg] - Sitting 98.00 Tympanic 66.00/ min 18.00/min 65990 006 87645 0 62.00 mm[Hg] - Sitting 162.00 mm[Hg] - Sitting 98.20 Tympanic 96.00 % 60.00/ min 16.00/min 37724 006 73588 4 62.00 mm[Hg] - Sitting 162.00 mm[Hg] - Sitting 98.00 Tympanic 70.00/ min 18.00/min 47331 006 55581 8 62.00 mm[Hg] - Sitting 162.00 mm[Hg] - Sitting 98.20 Tympanic 70.00/ min 18.00/min 82559 006 04310 2 66.00 mm[Hg] - Sitting 132.00 mm[Hg] - Sitting 98.60 Tympanic 74.00/ min 16.00/min 00068 006 39546 5 159.00 mg/dL 76294 006 60124 1 159.00 mg/dL 91986 006 26262 8 98.00 Tympanic 09846 006 62609 2 62.00 mm[Hg] - Sitting 162.00 mm[Hg] - Sitting 70.00/ min 60764 006 97070 7 264.00 mg/dL 16340 006 49392 7 264.00 mg/dL 87092 006 91369 4 196.00 mg/dL 12655 006 53832 3 98.20 Tympanic 51757 006 54092 6 271.00 mg/dL 67855 007 05930 3 97.20 Tympanic 09344 007 35018 2 63.00 mm[Hg] - Sitting 132.00 mm[Hg] - Sitting 98.50 Tympanic 94.00 % 66.00/ min 16.00/min 42850 007 47658 5 188.00 mg/dL 41987 007 29054 2 188.00 mg/dL 14847 007 22968 2 188.00 mg/dL 81784 007 49302 7 97.20 Tympanic 99014 007 47384 6 97.20 Tympanic 85150 007 36699 5 67.00 mm[Hg] - Sitting 152.00 mm[Hg] - Sitting 68.00/ min 67035 007 01576 0 141.00 mg/dL 63475 007 40886 3 141.00 mg/dL 45026 007 56280 1 366.00 mg/dL 10288 007 78517 7 366.00 mg/dL 69550 007 94862 7 98.00 Tympanic 64589 007 05645 6 324.00 mg/dL 56113 007 81956 3 98.00 Tympanic 51592 007 36986 7 324.00 mg/dL 10425 008 46719 0 98.00 Tympanic 79086 008 77813 2 97.90 Tympanic 17411 008 09644 0 98.20 Tympanic 85422 008 08963 0 73.00 mm[Hg] - Sitting 156.00 mm[Hg] - Sitting 98.60 Tympanic 99.00 % 66.00/ min 20.00/min 69697 008 85345 5 137.00 mg/dL 53992 008 14760 7 137.00 mg/dL 55087 008 72081 2 97.90 Tympanic 06309 008 91188 1 137.00 mg/dL 90315 008 51068 8 97.90 Tympanic 13553 008 57295 5 67.00 mm[Hg] - Sitting 124.00 /min 52224 008 26728 6 212.00 mg/dL 73133 008 02049 6 212.00 mg/dL 35743 008 54205 9 317.00 mg/dL 22993 008 41333 4 317.00 mg/dL 12674 008 83808 8 252.00 mg/dL 58642 008 44668 0 98.70 Tympanic 60630 008 38857 7 252.00 mg/dL 09383 008 16427 3 98.70 Tympanic 23959 009 69839 9 98.70 Tympanic 67496 009 69296 3 98.20 Tympanic 70738 009 44346 5 98.40 Tympanic 82711 009 79880 5 98.30 Tympanic Immunizations Vaccine Date Status COVID-19 09/20/2023 Completed Influenza 09/14/2024 Completed Other 10/08/2023 Completed Shingles 05/27/2011 Completed Tetanus 04/13/2022 Completed TDaP 04/13/2022 Completed Shingles 2 10/05/2018 Completed
--- OUTSIDE RECORDS SUMMARY | 2024-10-03 10:59 | External Medical Summary | Continuity Of Care Document ---
Author Name Unknown Address [address] [address] Organization [facility] () Care Team Providers Care Financial Sales Manager Name Role Phone DO Machado Amy Primary Care Provider [phone] Allergies Allergy Reaction Start Date End Date [...] 3 0.1 mL 08/29 Inactiv e 2023 35958 11055 0 1 time Intrad ermal False Tubersol 5 tub. unit/0.1 mL intradermal injection solution [Tuberculin PPD] 0.1mL Intradermal 1 time For PPD 2nd Step Give 2nd Step PPD Day 1 and Read results Day 3 (schedule 7 days after 1st READ) 0.1mL 09/08 Inactiv e 2023 91040 56769 0 1 time Intrad ermal False [facility] - Nurse initials indicate verificatio n that [id number] vaccine was administere d by [facility] [...] order For Diabetes 08/25 Inactiv e 2023 24185 61230 9 4 times a day Subcut aneous False Aspirin 325 mg tablet [generic] 325 By Mouth Twice daily For Anticoagulati on 325 09/25 Active 2023 67095 45497 1 Twice daily By Mouth False Ferrous sulfate 325 mg (65 mg iron) tablet [generic] 325 By Mouth Once daily For anemia 325 2023 Active 2023 21396 23509 5 Once daily By Mouth False Linezolid 600 mg tablet [generic] 600 mg By Mouth Every 12 hours For MRSA INFECTION L BKA 600 mg 08/25 Inactiv e 2023 15683 90173 1 Every 12 hours By Mouth False Cefpodoxime 200 mg tablet [generic] 400 mg By Mouth Twice daily For MRSA INFECTION L BKA 400 mg 08/25 Inactiv e 2023 87743 67787 0 Twice daily By Mouth False Coenzyme Q10 100 mg tablet [generic] 100 mg By Mouth Once daily For SUPP 100 mg 2023 Active 2023 88346 54521 0 Once daily By Mouth False Levothyroxi ne 50 mcg tablet [generic] 50mcg By Mouth Once daily For hypothyroidis m 50mcg 2023 Active 2023 26498 82941 0 Once daily By Mouth False One A Day Men Complete 240 mcg-25 mcg-300 mcg tablet 1 tab By Mouth Once daily For supplement 1 tab 2023 Active 2023 41454 04095 1 Once daily By Mouth False Cholecalcif adalberto (vitamin D3) 50 mcg (2,000 unit) tablet [generic] 1 TAB By Mouth Once daily For SUPP 1 TAB 2023 Active 2023 54516 00617 1 Once daily By Mouth False Cetirizine 10 mg tablet [generic] 1 TAB By Mouth At bedtime For Allergies 1 TAB 2023 Active 2023 14203 48426 0 At bedtime By Mouth False Timolol maleate 0.25 % eye drops [generic] 1 drop Both Eyes Twice daily For glaucoma 1 drop 2023 Active 2023 87327 35468 5 Twice daily Both Eyes False Alendronate 35 mg tablet [generic] 35mg By Mouth Every week For SIADH 35mg 08/31 Inactiv e 2023 17276 72173 5 Every week By Mouth False Lantus Solostar U-100 Insulin 100 unit/mL (3 mL) subcutaneou s pen 18 units Subcutaneous Every morning For DIABETES 18 units 08/25 Inactiv e 2023 22949 15816 0 Every morning Subcut aneous False Lantus Solostar U-100 Insulin 100 unit/mL (3 mL) subcutaneou s pen 18 units Subcutaneous Every morning For DIABETES 18 units 2023 Active 2023 92600 10528 0 Every morning Subcut aneous False Linezolid 600 mg tablet [generic] 600 mg By Mouth Every 12 hours For MRSA INFECTION L BKA 600 mg 08/28 Inactiv e 2023 08875 95418 1 Every 12 hours By Mouth False [...] order For Diabetes 08/31 Inactiv e 2023 08162 96327 9 4 times a day Subcut aneous False Cefpodoxime 200 mg tablet [generic] 400 mg By Mouth Twice daily For MRSA INFECTION L BKA 400 mg 08/28 Inactiv e 2023 94007 52815 0 Twice daily By Mouth False Brimonidine 0.1 % eye drops [generic] 1 drop Both Eyes Twice daily For glaucoma 1 drop 2023 Active 2023 37852 93034 0 Twice daily Both Eyes False Metoprolol succinate ER 50 mg tablet,exte nded release 24 hr [generic] 50 mg By Mouth Once daily HOLD FOR SBP <100, or pulse <60 For HTN 50 mg 2023 Active 2023 69762 01705 1 Once daily By Mouth False Amlodipine 2.5 mg tablet [generic] 2.5 mg By Mouth Once daily For HTN 2.5 mg 2023 Active 2023 39608 30626 5 Once daily By Mouth False Docusate sodium 100 mg capsule [generic] 100mg By Mouth Twice daily as needed For constipation HOLD FOR LOOSE STOOLS 100mg 2023 Active 2023 68070 93733 1 Twice daily as needed By Mouth False Atorvastati n 40 mg tablet [generic] 40mg By Mouth Once daily For HDL 40mg 08/26 Inactiv e 2023 47960 65305 5 Once daily By Mouth False Tylenol 325 mg tablet 2 tabs By Mouth Every 4 hours as needed For Pain DO NOT EXCEED 3000 MG APAP/24 Hours 2 tabs 2023 Active 2023 81048 75263 0 Every 4 hours as needed By Mouth False Tylenol 325 mg tablet 2 tabs By Mouth Every 4 hours as needed For Fever >100 DO NOT EXCEED 3000 MG APAP/24 Hours 2 tabs 2023 Active 2023 06750 41672 0 Every 4 hours as needed By Mouth False Dulcolax (bisacodyl) 10 mg rectal suppository One Suppository per rectum PRN if Milk of Magnisia ineffective. Give on day 5 of no BM 1 sup 2023 Active 2023 94831 07666 1 Daily as needed Rectal False Fleet Enema 19 gram-7 gram/118 mL Administer per rectum PRN one time if dulcolax suppository not effective. Give on day 6 of no BM 1 2023 Active 2023 69643 23530 6 Daily as needed Rectal False Dextrose 50 % in water (D50W) intravenous solution [generic] Dextrose 50% evonne 20-50 ml (slow push) Intravenous if Glucagon not effective after 15 minutes. CALL 911 for ED Evaluation. 50% evonne 2023 Active 2023 63002 11754 9 Intrav enous False Glucagon (HCl) Emergency Kit 1 mg solution for injection Administer Glucagon 1 mg Intramuscular if 15 minutes after GLucose Gel is administered Glucose remains less than 70 1 mg 2023 Active 2023 30606 31525 2 Intram uscula r False Glucose Gel 40 % oral gel [Dextrose] PRN If resident is unable to swallow (with or without symptoms) and Glucose results less than 70 give GLucose 40% Gel 1 tube orally - Recheck Glucose 15 minutes after administratio n. 1 tube 2023 Active 2023 55660 53604 8 By Mouth False Milk of Magnesia 400 mg/5 mL oral suspension [Magnesium hydroxide] PRN 30ml By Mouth Daily as needed for constipation one time daily if no BM, on day 4 of no BM (PRN refer to instructions) For Constipation 30 mL 2023 Active 2023 24772 70229 6 Daily as needed By Mouth False Atorvastati n 40 mg tablet [generic] 08/26 Inactiv e 2023 53846 47842 5 Atorvastati n 40 mg tablet [generic] 40mg By Mouth Once daily For HDL 40mg 2023 Active 2023 38923 38242 5 Once daily By Mouth False Insulin aspart (U-100) 100 unit/mL (3 mL) subcutaneou s pen [generic] 15 units Subcutaneous 1 time For dm 15 units 08/26 Inactiv e 2023 53111 78021 5 1 time Subcut aneous False Humalog KwikPen (U-100) Insulin 100 unit/mL subcutaneou s 15 units Subcutaneous 1 time For dm 15 units 08/27 Inactiv e 2023 57381 79261 9 1 time Subcut aneous False Linezolid 600 mg tablet [generic] 600 mg By Mouth Every 12 hours For MRSA INFECTION L BKA 600 mg 09/06 Inactiv e 2023 49347 12192 1 Every 12 hours By Mouth False Cefpodoxime 200 mg tablet [generic] 400 mg By Mouth Twice daily For MRSA INFECTION L BKA 400 mg 08/31 Inactiv e 2023 81364 31038 0 Twice daily By Mouth False Senna 8.6 mg tablet 8.6 mg By Mouth Once daily For Constipation 8.6 mg 09/07 Inactiv e 2023 88916 52740 1 Once daily By Mouth False Humalog [...] abnormalities . Per Carb 2023 Active 2023 99559 10537 9 4 times a day Subcut aneous False Alendronate 35 mg tablet [generic] 08/31 Inactiv e 2023 33823 50010 5 Alendronate 35 mg tablet [generic] 35mg By Mouth Every week For Osteoporosis 35mg 202300 /0000 Active 2023 11581 58963 5 Every week By Mouth False ProSource 10 gram-100 kcal/30 mL oral liquid 30 ml By Mouth Once daily For wound healing 30 ml 2023 Active 2023 34379 31996 2 Once daily By Mouth False Clotrimazol e 1 % topical cream [generic] 1 applicaiton Topical Twice daily For tinea, apply to groin rash after cleansing and throughouly drying. Can discontinue order 3 days after rash resolves. 1 applica stacy 09/08 Inactiv e 2023 20742 63909 0 Twice daily Topica l False MAGIC MIX 1:1:1:1 : ZINC OXIDE EXTERNAL OINTMENT 40%; HYDROCOTISO NE EXTERNAL CREAM 1%; NYSTATIN EXTERNAL CREAM 626209O/GM; SILVADENE CREAM 1% Every shift Apply topically to MASD area on coccyx/buttoc ks each shift and as needed for incontinence care For MASD on coccyx layer 2023 Active 2023 Every shift Topica l False Senna 8.6 mg tablet 8.6 mg By Mouth Once daily For Constipation 8.6 mg 09/07 Inactiv e 2023 65450 83912 1 Once daily By Mouth False Senna 8.6 mg tablet 8.6 mg By Mouth Once daily As Needed For Constipation 8.6 mg 2023 Active 2023 32482 07259 1 Once daily By Mouth False BD AutoShield Duo Pen Needle 30 gauge x 3/16in 1 pen needle Subcutaneous 4 times a day For DM 1 pen needle 2023 Active 2023 50783 52100 5 4 times a day Subcut aneous False Hydrocortis one 1 % topical ointment [generic] 1 application Topical Twice daily For tinea *mix 1:1 with clotrimazole cream and apply to clean/dry groin rash 1 applica peggy 09/19 Active 2023 51863 36754 6 Twice daily Topica l False Clotrimazol e 1 % topical cream [generic] 1 applicaiton Topical Twice daily For tinea, apply to groin rash after cleansing and throughouly drying. MIX WITH HYDROCORTISON E Can discontinue order 3 days after rash resolves. 1 applica stacy 2023 Active 2023 92880 61389 0 Twice daily Topica l False Humalog KwikPen (U-100) Insulin 100 unit/mL subcutaneou s 08/31 Inactiv e 2023 60945 41927 9 MediHoney HCS 4 1/2in X 4 1/2in bandage Cleanse area with NSS, [facility] dressing, non adherent dressing, kerlix secure with paper tape daily. For wound stage III 1 2023 Active 2023 13235 70531 1 Once daily Topica l False Problems Code Description Start Date End Date Status D64.9 Anemia, unspecified 08/25/2024 Activ e I25.10 Atherosclerotic hear t disease of [place] coronary artery without angina pectoris 08/25/2024 Active [...] weight Temperature SpO2 Blood Sugar Pulse Respirations 53219 8 67.00 mm[Hg] - Sitting 145.00 mm[Hg] - Sitting 98.50 Forehead Scan 96.00 % 81.00/ min 16.00/min 004 16923 2 67.00 mm[Hg] - Sitting 145.00 mm[Hg] - Sitting 98.50 Tympanic 81.00/ min 16.00/min 004 53588 5 56.00 mm[Hg] - Sitting 142.00 mm[Hg] - Sitting 136.40 NI 100.20 Tympanic 96.00 % 92.00/ min 18.00/min 53573 004 55380 6 97607 004 73216 4 143.00 mg/dL 32852 0 97.80 Tympanic 005 09529 7 60.00 mm[Hg] - Sitting 140.00 mm[Hg] - Sitting 98.00 Tympanic 84.00/ min 18.00/min 02214 005 11054 0 63.00 mm[Hg] - Sitting 141.00 mm[Hg] - Sitting 98.20 Tympanic 92.00 % 63.00/ min 16.00/min 56374 005 90100 8 69.00 mm[Hg] - Sitting 106.00 mm[Hg] - Sitting 97.20 Tympanic 005 92180 7 69.00/ min 16.00/min 75143 005 47004 3 69.00 mm[Hg] - Sitting 106.00 mm[Hg] - Sitting 98.20 Tympanic 69.00/ min 16.00/min 60454 005 02082 1 367.00 mg/dL 82338 005 04531 2 97.20 Tympanic 70127 005 40577 4 97.20 Tympanic 36178 005 70680 0 69.00 mm[Hg] - Sitting 106.00 mm[Hg] - Sitting 69.00/ min 59590 005 24939 3 452.00 mg/dL 10633 005 50911 3 452.00 mg/dL 00290 005 41450 5 352.00 mg/dL 38292 005 39074 3 352.00 mg/dL 15824 005 43853 7 98.20 Tympanic 50159 005 3 101.00 mg/dL 87452 005 8 101.00 mg/dL 01383 006 53453 4 66.00 mm[Hg] - Sitting 107.00 mm[Hg] - Sitting 98.00 Tympanic 66.00/ min 18.00/min 74880 006 91420 0 62.00 mm[Hg] - Sitting 162.00 mm[Hg] - Sitting 98.20 Tympanic 96.00 % 60.00/ min 16.00/min 75959 006 86080 4 62.00 mm[Hg] - Sitting 162.00 mm[Hg] - Sitting 98.00 Tympanic 70.00/ min 18.00/min 91347 006 01389 8 62.00 mm[Hg] - Sitting 162.00 mm[Hg] - Sitting 98.20 Tympanic 70.00/ min 18.00/min 03517 006 11233 2 66.00 mm[Hg] - Sitting 132.00 mm[Hg] - Sitting 98.60 Tympanic 74.00/ min 16.00/min 09078 006 69275 5 159.00 mg/dL 63792 006 15403 1 159.00 mg/dL 70243 006 89703 8 98.00 Tympanic 92096 006 62137 2 62.00 mm[Hg] - Sitting 162.00 mm[Hg] - Sitting 70.00/ min 66182 006 89791 7 264.00 mg/dL 21154 006 66426 7 264.00 mg/dL 43608 006 06997 4 196.00 mg/dL 09078 006 09147 3 98.20 Tympanic 47407 006 63248 6 271.00 mg/dL 08075 007 03076 3 97.20 Tympanic 85274 007 54919 2 63.00 mm[Hg] - Sitting 132.00 mm[Hg] - Sitting 98.50 Tympanic 94.00 % 66.00/ min 16.00/min 57807 007 81497 5 188.00 mg/dL 85444 007 61413 2 188.00 mg/dL 26286 007 17019 2 188.00 mg/dL 36516 007 33854 7 97.20 Tympanic 36359 007 14972 6 97.20 Tympanic 01954 007 60887 5 67.00 mm[Hg] - Sitting 152.00 mm[Hg] - Sitting 68.00/ min 76673 007 95264 0 141.00 mg/dL 31889 007 81041 3 141.00 mg/dL 63970 007 03436 1 366.00 mg/dL 80232 007 68124 7 366.00 mg/dL 91360 007 83252 7 98.00 Tympanic 79003 007 94583 6 324.00 mg/dL 31889 007 10670 3 98.00 Tympanic 17002 007 18994 7 324.00 mg/dL 91498 008 55001 0 98.00 Tympanic 24374 008 38803 2 97.90 Tympanic 07415 008 21068 0 98.20 Tympanic 34189 008 72847 0 73.00 mm[Hg] - Sitting 156.00 mm[Hg] - Sitting 98.60 Tympanic 99.00 % 66.00/ min 20.00/min 15124 008 13764 5 137.00 mg/dL 67592 008 15853 7 137.00 mg/dL 94787 008 09015 2 97.90 Tympanic 79796 008 84983 1 137.00 mg/dL 02484 008 51656 8 97.90 Tympanic 49460 008 35518 5 67.00 mm[Hg] - Sitting 124.00 /min 17809 008 22797 6 212.00 mg/dL 63351 008 08300 6 212.00 mg/dL 74668 008 42854 9 317.00 mg/dL 43049 008 65272 4 317.00 mg/dL 91542 008 47766 8 252.00 mg/dL 51362 008 50522 0 98.70 Tympanic 78051 008 08578 7 252.00 mg/dL 89780 008 96123 3 98.70 Tympanic 73232 009 24474 9 98.70 Tympanic 82742 009 63299 3 98.20 Tympanic 24314 009 98026 5 98.40 Tympanic 74856 009 39621 5 57.00 mm[Hg] - Sitting 129.00 mm[Hg] - Sitting 98.30 Tympanic 97.00 % 65.00/ min 18.00/min 20765 009 29519 1 255.00 mg/dL 40254 009 15648 4 255.00 mg/dL 26205 009 85311 5 98.20 Tympanic 38218 009 69162 0 255.00 mg/dL 85246 009 45315 0 98.20 Tympanic 34458 009 24559 4 63.00 mm[Hg] - Lying Down 102.00 mm[Hg] - Lying Down 58.00/ min 41854 009 49483 0 167.00 mg/dL 01101 009 21431 1 167.00 mg/dL 46039 009 35483 2 164.00 mg/dL 73833 009 95156 1 164.00 mg/dL 20399 009 04709 5 208.00 mg/dL 25022 010 43329 3 98.40 Tympanic 42585 010 10689 5 98.40 Tympanic 60937 010 84221 7 66 NI 47370 010 80415 4 60.00 mm[Hg] - Sitting 143.00 mm[Hg] - Sitting 98.90 Tympanic 98.00 % 67.00/ min 18.00/min 63825 010 09995 2 214.00 mg/dL 87815 010 32641 0 214.00 mg/dL 04153 010 91995 7 214.00 mg/dL 72108 010 36950 6 64.00 mm[Hg] - Sitting 110.00 mm[Hg] - Sitting 72.00/ min 14936 010 40846 7 98.40 Tympanic 69344 010 47032 1 212.00 mg/dL 54755 010 72801 2 212.00 mg/dL 70781 010 93666 1 115.00 mg/dL 32167 010 20449 0 115.00 mg/dL 39516 010 71226 4 98.50 Tympanic 82659 010 23961 4 150.00 mg/dL 06582 010 47010 0 150.00 mg/dL 93596 011 82332 9 98.60 Tympanic 94228 011 05377 1 67.00 mm[Hg] - Sitting 144.00 mm[Hg] - Sitting 98.20 Tympanic 98.00 % 61.00/ min 18.00/min 28772 011 08775 7 290.00 mg/dL 09269 011 62776 2 290.00 mg/dL 93243 011 76151 2 290.00 mg/dL 28318 011 26264 7 54.00 mm[Hg] - Sitting 136.00 mm[Hg] - Sitting 101.00 /min 28362 011 55404 7 98.60 Tympanic 42205 011 88459 5 240.00 mg/dL 04950 011 43109 1 240.00 mg/dL 59348 011 43008 1 156.00 mg/dL 01733 011 48134 9 156.00 mg/dL 05874 011 31341 0 97.80 Tympanic 89043 011 78244 8 343.00 mg/dL 39627 012 73688 9 97.90 Tympanic 35114 012 85382 2 466.00 mg/dL 84305 012 45619 1 466.00 mg/dL 01365 012 01676 3 466.00 mg/dL 60749 012 10383 8 97.90 Tympanic 20351 012 70655 8 56.00 mm[Hg] - Sitting 96.00 mm[Hg] - Sitting 61.00/ min 30849 012 74378 7 350.00 mg/dL 73666 012 61928 5 350.00 mg/dL 74380 012 32371 6 111.00 mg/dL 43780 012 65355 0 111.00 mg/dL 28009 012 42525 5 98.40 Tympanic 57987 012 50754 6 114.00 mg/dL 67657 013 17538 4 74.00 mm[Hg] - Sitting 112.00 mm[Hg] - Sitting 98.40 Tympanic 70.00/ min 18.00/min 13835 013 94725 8 244.00 mg/dL 08767 013 29178 7 244.00 mg/dL 49451 013 43120 1 244.00 mg/dL 75436 013 87594 1 98.20 Tympanic 73859 013 29390 7 72.00 mm[Hg] - Sitting 119.00 mm[Hg] - Sitting 76.00/ min 44449 013 26346 7 253.00 mg/dL 88351 013 44590 4 253.00 mg/dL 84823 013 51690 9 156.00 mg/dL 22441 013 42378 5 156.00 mg/dL 04438 013 69682 4 97.90 Tympanic 08927 013 67011 5 189.00 mg/dL 86144 014 99482 9 98.10 Tympanic 12781 014 44050 0 61.00 mm[Hg] - Sitting 139.00 mm[Hg] - Sitting 98.20 Forehead Scan 99.00 % 66.00/ min 18.00/min 93617 014 17518 3 169.00 mg/dL 94350 014 68048 3 98.10 Tympanic 85083 014 05509 3 75.00 mm[Hg] - Sitting 121.00 mm[Hg] - Sitting 71.00/ min 79295 014 28066 9 221.00 mg/dL 27057 014 48107 9 62.00 mg/dL 62774 014 21507 5 62.00 mg/dL 11755 014 17428 8 156.00 mg/dL 67396 014 08110 6 98.10 Tympanic 10943 014 21237 7 156.00 mg/dL 36862 015 27639 4 99401 015 34049 7 62.00 mm[Hg] - Sitting 142.00 mm[Hg] - Sitting 98.20 Tympanic 99.00 % 67.00/ min 18.00/min 99847 015 66508 9 120.00 mg/dL 14306 015 80580 7 98.00 Tympanic 65207 015 08330 2 82.00 mm[Hg] - Sitting 119.00 /min 47362 015 29013 9 110.00 mg/dL 82171 015 13284 6 104.00 mg/dL 37357 015 92521 0 100.00 mg/dL 14491 015 04162 2 98.10 Tympanic 64109 015 89678 6 100.00 mg/dL 46053 016 80719 2 67.00 mm[Hg] - Sitting 147.00 mm[Hg] - Sitting 99.00 Tympanic 99.00 % 78.00/ min 20.00/min 14101 016 02896 5 158.00 mg/dL 23482 016 35060 1 158.00 mg/dL 45075 016 43987 2 158.00 mg/dL 80055 016 23379 0 66.00 mm[Hg] - Sitting 121.00 mm[Hg] - Sitting 74.00/ min 66092 016 47385 1 97.00 mg/dL 04903 016 16317 5 97.00 mg/dL 09600 016 05764 4 78.00 mg/dL 50591 016 89713 6 78.00 mg/dL 18841 016 64945 5 248.00 mg/dL 78926 016 52250 8 248.00 mg/dL 72326 017 71474 3 54.00 mm[Hg] - Sitting 142.00 mm[Hg] - Sitting 98.30 Tympanic 99.00 % 76.00/ min 18.00/min 23601 017 20379 4 267.00 mg/dL 36659 017 45788 6 73.00 mm[Hg] - Sitting 109.00 mm[Hg] - Sitting 70.00/ min 29834 017 65935 1 184.00 mg/dL 54595 017 78591 5 184.00 mg/dL 10055 017 62374 9 248.00 mg/dL 10731 017 55306 8 299.00 mg/dL 71408 017 50283 3 299.00 mg/dL 30906 018 46723 7 50.00 mm[Hg] - Sitting 125.00 mm[Hg] - Sitting 98.30 Tympanic 98.00 % 76.00/ min 16.00/min 14503 018 32544 3 168.00 mg/dL 08513 018 91584 0 75.00 mm[Hg] - Sitting 121.00 mm[Hg] - Sitting 70.00/ min 07943 018 62598 7 264.00 mg/dL 94403 018 94031 6 132.00 mg/dL 98712 018 69792 6 154.00 mg/dL 83638 018 48156 6 154.00 mg/dL 83623 019 21671 4 63.00 mm[Hg] - Sitting 147.00 mm[Hg] - Sitting 98.50 Tympanic 99.00 % 69.00/ min 18.00/min 45518 019 27805 9 159.00 mg/dL 67519 019 91482 8 73.00 mm[Hg] - Sitting 110.00 mm[Hg] - Sitting 72.00/ min 22536 019 89911 4 191.00 mg/dL 34654 019 45731 8 70.00 mg/dL 44489 019 40042 4 70.00 mg/dL 51958 019 87448 6 198.00 mg/dL 82438 019 15173 0 198.00 mg/dL 98536 020 42944 2 59.00 mm[Hg] - Sitting 131.00 mm[Hg] - Sitting 98.90 Tympanic 99.00 % 69.00/ min 18.00/min 43657 020 01846 7 299.00 mg/dL 13181 020 14798 0 62.00 mm[Hg] - Sitting 132.00 mm[Hg] - Sitting 68.00/ min 88204 020 21197 3 299.00 mg/dL 65288 020 65035 3 299.00 mg/dL 23325 020 26188 9 220.00 mg/dL 73764 020 05536 1 220.00 mg/dL 42496 020 21111 1 270.00 mg/dL 16968 020 81035 4 270.00 mg/dL 99180 020 35781 9 143.00 mg/dL 40858 020 18677 4 143.00 mg/dL 69807 021 76246 0 59.00 mm[Hg] - Sitting 121.00 mm[Hg] - Sitting 98.40 Forehead Scan 98.00 % 70.00/ min 16.00/min 49589 021 40292 0 140.00 mg/dL 77149 021 84854 0 67.00 mm[Hg] - Sitting 130.00 mm[Hg] - Sitting 68.00/ min 87413 021 87683 8 140.00 mg/dL 66468 021 35779 6 140.00 mg/dL 48604 021 79980 8 156.00 mg/dL 71473 021 76059 1 156.00 mg/dL 63813 021 61196 5 146.00 mg/dL 90841 021 94053 4 146.00 mg/dL 02251 021 75160 5 183.00 mg/dL 80394 021 29136 2 183.00 mg/dL 05398 022 29683 3 52112 022 36459 1 43.00 mm[Hg] - Sitting 113.00 mm[Hg] - Sitting 97.80 Tympanic 97.00 % 64.00/ min 18.00/min 28195 022 32342 6 270.00 mg/dL 30896 022 31949 5 68.00 mm[Hg] - Sitting 122.00 mm[Hg] - Sitting 67.00/ min 82542 022 72075 9 270.00 mg/dL 63550 022 06033 4 270.00 mg/dL 36712 022 89760 4 207.00 mg/dL 23522 022 37609 8 207.00 mg/dL 37754 022 86645 9 217.00 mg/dL 42664 022 71918 2 217.00 mg/dL 69297 022 41402 0 192.00 mg/dL 57827 022 36324 9 192.00 mg/dL 76781 023 31863 8 48.00 mm[Hg] - Sitting 116.00 mm[Hg] - Sitting 98.50 Tympanic 97.00 % 63.00/ min 18.00/min 52477 023 57788 9 68.00 mm[Hg] - Sitting 131.00 mm[Hg] - Sitting 68.00/ min 55592 023 30309 8 235.00 mg/dL 44647 023 30811 4 235.00 mg/dL 76033 023 78523 0 235.00 mg/dL 43105 023 40875 0 199.00 mg/dL 66939 023 31709 7 199.00 mg/dL 17164 023 02161 4 233.00 mg/dL 09386 023 86778 3 233.00 mg/dL 66896 023 16243 6 229.00 mg/dL 63283 023 40739 4 229.00 mg/dL 28558 024 07539 3 58.00 mm[Hg] - Sitting 102.00 mm[Hg] - Sitting 58.00/ min 29550 024 41466 9 156.00 mg/dL 57916 024 46569 4 156.00 mg/dL 54398 024 48768 3 156.00 mg/dL 01147 024 40555 0 343.00 mg/dL 36862 024 53348 6 343.00 mg/dL 86927 024 00400 2 167.00 mg/dL 76412 024 68294 0 167.00 mg/dL 13313 024 44696 8 155.00 mg/dL 03755 024 73732 7 155.00 mg/dL 57715 025 75024 0 51.00 mm[Hg] - Lying Down 109.00 mm[Hg] - Lying Down 98.60 Tympanic 95.00 % 67.00/ min 20.00/min 12267 025 73343 0 60.00 mm[Hg] - Sitting 118.00 mm[Hg] - Sitting 98.30 Forehead Scan 98.00 % 68.00/ min 16.00/min 21671 025 07705 3 235.00 mg/dL 76368 025 08032 1 63.00 mm[Hg] - Sitting 110.00 mm[Hg] - Sitting 75.00/ min 31951 025 74479 9 295.00 mg/dL 46720 025 93032 4 94.00 mg/dL 74776 025 52972 1 132.00 mg/dL 02225 025 59683 2 132.00 mg/dL 07487 026 38803 8 50.00 mm[Hg] - Sitting 123.00 mm[Hg] - Sitting 98.50 Tympanic 95.00 % 66.00/ min 18.00/min 51083 026 86636 0 275.00 mg/dL 15206 026 32202 7 275.00 mg/dL 66161 026 78954 1 275.00 mg/dL 38624 026 16029 6 67.00 mm[Hg] - Sitting 123.00 mm[Hg] - Sitting 66.00/ min 73751 026 17858 3 187.00 mg/dL 64237 026 05674 5 187.00 mg/dL 47524 026 36135 0 167.00 mg/dL 47334 026 57474 8 167.00 mg/dL 73914 026 71102 6 387.00 mg/dL 97525 027 62529 7 53.00 mm[Hg] - Sitting 132.00 mm[Hg] - Sitting 98.60 Tympanic 97.00 % 64.00/ min 18.00/min 25855 027 03315 9 189.00 mg/dL 58390 027 69746 4 67.00 mm[Hg] - Sitting 118.00 mm[Hg] - Sitting 66.00/ min 28327 027 61098 2 189.00 mg/dL 28327 027 91656 7 189.00 mg/dL 46340 027 57880 1 105.00 mg/dL 33767 027 04364 8 105.00 mg/dL 21351 027 48633 4 223.00 mg/dL 90554 027 19472 9 223.00 mg/dL 18110 027 01602 9 164.00 mg/dL Immunizations Vaccine Date Status COVID-19 09/20/2023 Completed Influenza 09/14/2024 Completed Other 10/08/2023 Completed Shingles 05/27/2011 Completed Tetanus 04/13/2022 Completed TDaP 04/13/2022 Completed Shingles 2 10/05/2018 Completed
--- OUTSIDE RECORDS SUMMARY | 2024-10-03 11:00 | External Medical Summary | Continuity Of Care Document ---
Author Name Unknown Address [address] [address] Organization [facility] () Care Team Providers Care Punch Machine Hand Name Role Phone DO Machado Amy Primary Care Provider [phone] Allergies Allergy Reaction Start Date End Date [...] 3 0.1 mL 08/29 Inactiv e 2023 70109 83221 0 1 time Intrad ermal False Tubersol 5 tub. unit/0.1 mL intradermal injection solution [Tuberculin PPD] 0.1mL Intradermal 1 time For PPD 2nd Step Give 2nd Step PPD Day 1 and Read results Day 3 (schedule 7 days after 1st READ) 0.1mL 09/08 Inactiv e 2023 14342 12840 0 1 time Intrad ermal False [facility] - Nurse initials indicate verificatio n that [id number] vaccine was administere d by [facility] [...] order For Diabetes 08/25 Inactiv e 2023 00090 38276 9 4 times a day Subcut aneous False Aspirin 325 mg tablet [generic] 325 By Mouth Twice daily For Anticoagulati on 325 09/25 Active 2023 54143 03669 1 Twice daily By Mouth False Ferrous sulfate 325 mg (65 mg iron) tablet [generic] 325 By Mouth Once daily For anemia 325 2023 Active 2023 11502 77501 5 Once daily By Mouth False Linezolid 600 mg tablet [generic] 600 mg By Mouth Every 12 hours For MRSA INFECTION L BKA 600 mg 08/25 Inactiv e 2023 07865 70720 1 Every 12 hours By Mouth False Cefpodoxime 200 mg tablet [generic] 400 mg By Mouth Twice daily For MRSA INFECTION L BKA 400 mg 08/25 Inactiv e 2023 94380 13086 0 Twice daily By Mouth False Coenzyme Q10 100 mg tablet [generic] 100 mg By Mouth Once daily For SUPP 100 mg 2023 Active 2023 33786 04812 0 Once daily By Mouth False Levothyroxi ne 50 mcg tablet [generic] 50mcg By Mouth Once daily For hypothyroidis m 50mcg 2023 Active 2023 50306 13377 0 Once daily By Mouth False One A Day Men Complete 240 mcg-25 mcg-300 mcg tablet 1 tab By Mouth Once daily For supplement 1 tab 2023 Active 2023 35841 13406 1 Once daily By Mouth False Cholecalcif adalberto (vitamin D3) 50 mcg (2,000 unit) tablet [generic] 1 TAB By Mouth Once daily For SUPP 1 TAB 2023 Active 2023 40449 87720 1 Once daily By Mouth False Cetirizine 10 mg tablet [generic] 1 TAB By Mouth At bedtime For Allergies 1 TAB 2023 Active 2023 64679 74331 0 At bedtime By Mouth False Timolol maleate 0.25 % eye drops [generic] 1 drop Both Eyes Twice daily For glaucoma 1 drop 2023 Active 2023 73435 60705 5 Twice daily Both Eyes False Alendronate 35 mg tablet [generic] 35mg By Mouth Every week For SIADH 35mg 08/31 Inactiv e 2023 43312 16189 5 Every week By Mouth False Lantus Solostar U-100 Insulin 100 unit/mL (3 mL) subcutaneou s pen 18 units Subcutaneous Every morning For DIABETES 18 units 08/25 Inactiv e 2023 80348 35073 0 Every morning Subcut aneous False Lantus Solostar U-100 Insulin 100 unit/mL (3 mL) subcutaneou s pen 18 units Subcutaneous Every morning For DIABETES 18 units 2023 Active 2023 98291 04774 0 Every morning Subcut aneous False Linezolid 600 mg tablet [generic] 600 mg By Mouth Every 12 hours For MRSA INFECTION L BKA 600 mg 08/28 Inactiv e 2023 14904 74961 1 Every 12 hours By Mouth False [...] order For Diabetes 08/31 Inactiv e 2023 81892 81808 9 4 times a day Subcut aneous False Cefpodoxime 200 mg tablet [generic] 400 mg By Mouth Twice daily For MRSA INFECTION L BKA 400 mg 08/28 Inactiv e 2023 61887 57919 0 Twice daily By Mouth False Brimonidine 0.1 % eye drops [generic] 1 drop Both Eyes Twice daily For glaucoma 1 drop 2023 Active 2023 12432 28741 0 Twice daily Both Eyes False Metoprolol succinate ER 50 mg tablet,exte nded release 24 hr [generic] 50 mg By Mouth Once daily HOLD FOR SBP <100, or pulse <60 For HTN 50 mg 2023 Active 2023 33180 91371 1 Once daily By Mouth False Amlodipine 2.5 mg tablet [generic] 2.5 mg By Mouth Once daily For HTN 2.5 mg 2023 Active 2023 92939 66020 5 Once daily By Mouth False Docusate sodium 100 mg capsule [generic] 100mg By Mouth Twice daily as needed For constipation HOLD FOR LOOSE STOOLS 100mg 2023 Active 2023 28660 54041 1 Twice daily as needed By Mouth False Atorvastati n 40 mg tablet [generic] 40mg By Mouth Once daily For HDL 40mg 08/26 Inactiv e 2023 03718 73197 5 Once daily By Mouth False Tylenol 325 mg tablet 2 tabs By Mouth Every 4 hours as needed For Pain DO NOT EXCEED 3000 MG APAP/24 Hours 2 tabs 2023 Active 2023 47531 53433 0 Every 4 hours as needed By Mouth False Tylenol 325 mg tablet 2 tabs By Mouth Every 4 hours as needed For Fever >100 DO NOT EXCEED 3000 MG APAP/24 Hours 2 tabs 2023 Active 2023 57324 13327 0 Every 4 hours as needed By Mouth False Dulcolax (bisacodyl) 10 mg rectal suppository One Suppository per rectum PRN if Milk of Magnisia ineffective. Give on day 5 of no BM 1 sup 2023 Active 2023 56799 57607 1 Daily as needed Rectal False Fleet Enema 19 gram-7 gram/118 mL Administer per rectum PRN one time if dulcolax suppository not effective. Give on day 6 of no BM 1 2023 Active 2023 72891 53368 6 Daily as needed Rectal False Dextrose 50 % in water (D50W) intravenous solution [generic] Dextrose 50% evonne 20-50 ml (slow push) Intravenous if Glucagon not effective after 15 minutes. CALL 911 for ED Evaluation. 50% evonne 2023 Active 2023 04597 01681 9 Intrav enous False Glucagon (HCl) Emergency Kit 1 mg solution for injection Administer Glucagon 1 mg Intramuscular if 15 minutes after GLucose Gel is administered Glucose remains less than 70 1 mg 2023 Active 2023 21725 87679 2 Intram uscula r False Glucose Gel 40 % oral gel [Dextrose] PRN If resident is unable to swallow (with or without symptoms) and Glucose results less than 70 give GLucose 40% Gel 1 tube orally - Recheck Glucose 15 minutes after administratio n. 1 tube 2023 Active 2023 70320 93754 8 By Mouth False Milk of Magnesia 400 mg/5 mL oral suspension [Magnesium hydroxide] PRN 30ml By Mouth Daily as needed for constipation one time daily if no BM, on day 4 of no BM (PRN refer to instructions) For Constipation 30 mL 2023 Active 2023 67379 78695 6 Daily as needed By Mouth False Atorvastati n 40 mg tablet [generic] 08/26 Inactiv e 2023 53785 15689 5 Atorvastati n 40 mg tablet [generic] 40mg By Mouth Once daily For HDL 40mg 2023 Active 2023 27270 76101 5 Once daily By Mouth False Insulin aspart (U-100) 100 unit/mL (3 mL) subcutaneou s pen [generic] 15 units Subcutaneous 1 time For dm 15 units 08/26 Inactiv e 2023 33790 25747 5 1 time Subcut aneous False Humalog KwikPen (U-100) Insulin 100 unit/mL subcutaneou s 15 units Subcutaneous 1 time For dm 15 units 08/27 Inactiv e 2023 87651 61694 9 1 time Subcut aneous False Linezolid 600 mg tablet [generic] 600 mg By Mouth Every 12 hours For MRSA INFECTION L BKA 600 mg 09/06 Inactiv e 2023 50307 26809 1 Every 12 hours By Mouth False Cefpodoxime 200 mg tablet [generic] 400 mg By Mouth Twice daily For MRSA INFECTION L BKA 400 mg 08/31 Inactiv e 2023 16394 71493 0 Twice daily By Mouth False Senna 8.6 mg tablet 8.6 mg By Mouth Once daily For Constipation 8.6 mg 09/07 Inactiv e 2023 04023 09166 1 Once daily By Mouth False Humalog [...] abnormalities . Per Carb 2023 Active 2023 08358 74198 9 4 times a day Subcut aneous False Alendronate 35 mg tablet [generic] 08/31 Inactiv e 2023 75504 09707 5 Alendronate 35 mg tablet [generic] 35mg By Mouth Every week For Osteoporosis 35mg 202300 /0000 Active 2023 55659 69122 5 Every week By Mouth False ProSource 10 gram-100 kcal/30 mL oral liquid 30 ml By Mouth Once daily For wound healing 30 ml 2023 Active 2023 68207 80545 2 Once daily By Mouth False Clotrimazol e 1 % topical cream [generic] 1 applicaiton Topical Twice daily For tinea, apply to groin rash after cleansing and throughouly drying. Can discontinue order 3 days after rash resolves. 1 applica stacy 09/08 Inactiv e 2023 61944 95827 0 Twice daily Topica l False MAGIC MIX 1:1:1:1 : ZINC OXIDE EXTERNAL OINTMENT 40%; HYDROCOTISO NE EXTERNAL CREAM 1%; NYSTATIN EXTERNAL CREAM 942623N/GM; SILVADENE CREAM 1% Every shift Apply topically to MASD area on coccyx/buttoc ks each shift and as needed for incontinence care For MASD on coccyx layer 2023 Active 2023 Every shift Topica l False Senna 8.6 mg tablet 8.6 mg By Mouth Once daily For Constipation 8.6 mg 09/07 Inactiv e 2023 79005 87106 1 Once daily By Mouth False Senna 8.6 mg tablet 8.6 mg By Mouth Once daily As Needed For Constipation 8.6 mg 2023 Active 2023 12804 81361 1 Once daily By Mouth False BD AutoShield Duo Pen Needle 30 gauge x 3/16in 1 pen needle Subcutaneous 4 times a day For DM 1 pen needle 2023 Active 2023 67767 37698 5 4 times a day Subcut aneous False Hydrocortis one 1 % topical ointment [generic] 1 application Topical Twice daily For tinea *mix 1:1 with clotrimazole cream and apply to clean/dry groin rash 1 applica peggy 09/19 Active 2023 63060 73242 6 Twice daily Topica l False Clotrimazol e 1 % topical cream [generic] 1 applicaiton Topical Twice daily For tinea, apply to groin rash after cleansing and throughouly drying. MIX WITH HYDROCORTISON E Can discontinue order 3 days after rash resolves. 1 applica stacy 2023 Active 2023 23898 82414 0 Twice daily Topica l False Humalog KwikPen (U-100) Insulin 100 unit/mL subcutaneou s 08/31 Inactiv e 2023 54175 73246 9 MediHoney HCS 4 1/2in X 4 1/2in bandage Cleanse area with NSS, [facility], non adherent dressing, kerlix secure with paper tape daily. For wound stage III 1 2023 Active 2023 85507 77889 1 Once daily Topica l False Problems Code Description Start Date End Date Status D64.9 Anemia, unspecified 08/25/2024 Activ e I25.10 Atherosclerotic hear t disease of [place] coronary artery without angina pectoris 08/25/2024 Active [...] weight Temperature SpO2 Blood Sugar Pulse Respirations 28331 8 67.00 mm[Hg] - Sitting 145.00 mm[Hg] - Sitting 98.50 Forehead Scan 96.00 % 81.00/ min 16.00/min 004 97718 2 67.00 mm[Hg] - Sitting 145.00 mm[Hg] - Sitting 98.50 Tympanic 81.00/ min 16.00/min 004 00305 5 56.00 mm[Hg] - Sitting 142.00 mm[Hg] - Sitting 136.40 NI 100.20 Tympanic 96.00 % 92.00/ min 18.00/min 81862 004 60587 6 68003 004 93927 4 143.00 mg/dL 30630 0 97.80 Tympanic 005 95747 7 60.00 mm[Hg] - Sitting 140.00 mm[Hg] - Sitting 98.00 Tympanic 84.00/ min 18.00/min 94055 005 80854 0 63.00 mm[Hg] - Sitting 141.00 mm[Hg] - Sitting 98.20 Tympanic 92.00 % 63.00/ min 16.00/min 67352 005 57285 8 69.00 mm[Hg] - Sitting 106.00 mm[Hg] - Sitting 97.20 Tympanic 005 86829 7 69.00/ min 16.00/min 51658 005 62844 3 69.00 mm[Hg] - Sitting 106.00 mm[Hg] - Sitting 98.20 Tympanic 69.00/ min 16.00/min 84597 005 21450 1 367.00 mg/dL 53543 005 88578 2 97.20 Tympanic 91376 005 29767 4 97.20 Tympanic 65200 005 05223 0 69.00 mm[Hg] - Sitting 106.00 mm[Hg] - Sitting 69.00/ min 52861 005 37333 3 452.00 mg/dL 92865 005 05823 3 452.00 mg/dL 06722 005 47753 5 352.00 mg/dL 72411 005 35715 3 352.00 mg/dL 33483 005 32911 7 98.20 Tympanic 09703 005 3 101.00 mg/dL 95741 005 8 101.00 mg/dL 86502 006 91419 4 66.00 mm[Hg] - Sitting 107.00 mm[Hg] - Sitting 98.00 Tympanic 66.00/ min 18.00/min 11015 006 04387 0 62.00 mm[Hg] - Sitting 162.00 mm[Hg] - Sitting 98.20 Tympanic 96.00 % 60.00/ min 16.00/min 31980 006 13059 4 62.00 mm[Hg] - Sitting 162.00 mm[Hg] - Sitting 98.00 Tympanic 70.00/ min 18.00/min 57919 006 13057 8 62.00 mm[Hg] - Sitting 162.00 mm[Hg] - Sitting 98.20 Tympanic 70.00/ min 18.00/min 38171 006 44718 2 66.00 mm[Hg] - Sitting 132.00 mm[Hg] - Sitting 98.60 Tympanic 74.00/ min 16.00/min 61115 006 84475 5 159.00 mg/dL 82446 006 11018 1 159.00 mg/dL 58245 006 03836 8 98.00 Tympanic 85392 006 01977 2 62.00 mm[Hg] - Sitting 162.00 mm[Hg] - Sitting 70.00/ min 52523 006 61250 7 264.00 mg/dL 42801 006 24097 7 264.00 mg/dL 92884 006 56820 4 196.00 mg/dL 16988 006 77530 3 98.20 Tympanic 99731 006 68013 6 271.00 mg/dL 46573 007 48214 3 97.20 Tympanic 59742 007 41808 2 63.00 mm[Hg] - Sitting 132.00 mm[Hg] - Sitting 98.50 Tympanic 94.00 % 66.00/ min 16.00/min 60413 007 53654 5 188.00 mg/dL 84269 007 04500 2 188.00 mg/dL 79584 007 76437 2 188.00 mg/dL 03720 007 78268 7 97.20 Tympanic 98878 007 85002 6 97.20 Tympanic 12980 007 17289 5 67.00 mm[Hg] - Sitting 152.00 mm[Hg] - Sitting 68.00/ min 14597 007 43353 0 141.00 mg/dL 03476 007 36618 3 141.00 mg/dL 20527 007 36384 1 366.00 mg/dL 18556 007 76868 7 366.00 mg/dL 30855 007 22300 7 98.00 Tympanic 43388 007 54684 6 324.00 mg/dL 86064 007 04060 3 98.00 Tympanic 99261 007 97236 7 324.00 mg/dL 89229 008 45914 0 98.00 Tympanic 35196 008 88054 2 97.90 Tympanic 73440 008 48374 0 98.20 Tympanic 81725 008 26624 0 73.00 mm[Hg] - Sitting 156.00 mm[Hg] - Sitting 98.60 Tympanic 99.00 % 66.00/ min 20.00/min 24124 008 37375 5 137.00 mg/dL 18638 008 91175 7 137.00 mg/dL 07390 008 54329 2 97.90 Tympanic 74586 008 01572 1 137.00 mg/dL 67931 008 59295 8 97.90 Tympanic 18629 008 69895 5 67.00 mm[Hg] - Sitting 124.00 /min 58145 008 52861 6 212.00 mg/dL 96138 008 14944 6 212.00 mg/dL 79909 008 48237 9 317.00 mg/dL 84714 008 45809 4 317.00 mg/dL 34391 008 11973 8 252.00 mg/dL 09640 008 71370 0 98.70 Tympanic 26350 008 61844 7 252.00 mg/dL 45925 008 50616 3 98.70 Tympanic 58291 009 94999 9 98.70 Tympanic 30125 009 74992 3 98.20 Tympanic 50875 009 12618 5 98.40 Tympanic 47941 009 92924 5 57.00 mm[Hg] - Sitting 129.00 mm[Hg] - Sitting 98.30 Tympanic 97.00 % 65.00/ min 18.00/min 82038 009 53688 1 255.00 mg/dL 93974 009 62381 4 255.00 mg/dL 73802 009 28862 5 98.20 Tympanic 23604 009 26024 0 255.00 mg/dL 89785 009 39121 0 98.20 Tympanic 63198 009 38753 4 63.00 mm[Hg] - Lying Down 102.00 mm[Hg] - Lying Down 58.00/ min 92047 009 82089 0 167.00 mg/dL 84026 009 93032 1 167.00 mg/dL 69113 009 08921 2 164.00 mg/dL 01292 009 04602 1 164.00 mg/dL 47451 009 14971 5 208.00 mg/dL 74941 010 90146 3 98.40 Tympanic 94646 010 03066 5 98.40 Tympanic 80262 010 56608 7 66 NI 65436 010 98488 4 60.00 mm[Hg] - Sitting 143.00 mm[Hg] - Sitting 98.90 Tympanic 98.00 % 67.00/ min 18.00/min 20611 010 38030 2 214.00 mg/dL 89130 010 23818 0 214.00 mg/dL 11086 010 55156 7 214.00 mg/dL 19027 010 63670 6 64.00 mm[Hg] - Sitting 110.00 mm[Hg] - Sitting 72.00/ min 07804 010 89097 7 98.40 Tympanic 34050 010 14403 1 212.00 mg/dL 39706 010 57506 2 212.00 mg/dL 42105 010 51276 1 115.00 mg/dL 24808 010 54462 0 115.00 mg/dL 01914 010 58624 4 98.50 Tympanic 48312 010 37507 4 150.00 mg/dL 37766 010 43278 0 150.00 mg/dL 85805 011 24742 9 98.60 Tympanic 92246 011 96026 1 67.00 mm[Hg] - Sitting 144.00 mm[Hg] - Sitting 98.20 Tympanic 98.00 % 61.00/ min 18.00/min 01514 011 29874 7 290.00 mg/dL 31685 011 00305 2 290.00 mg/dL 52869 011 79343 2 290.00 mg/dL 40787 011 69215 7 54.00 mm[Hg] - Sitting 136.00 mm[Hg] - Sitting 101.00 /min 92069 011 26645 7 98.60 Tympanic 11902 011 09218 5 240.00 mg/dL 58984 011 00541 1 240.00 mg/dL 91537 011 01412 1 156.00 mg/dL 54608 011 52937 9 156.00 mg/dL 66424 011 32985 0 97.80 Tympanic 49943 011 19507 8 343.00 mg/dL 59857 012 50835 9 97.90 Tympanic 15791 012 92204 2 466.00 mg/dL 15443 012 38807 1 466.00 mg/dL 69395 012 98048 3 466.00 mg/dL 59312 012 53476 8 97.90 Tympanic 71563 012 28922 8 56.00 mm[Hg] - Sitting 96.00 mm[Hg] - Sitting 61.00/ min 94321 012 69171 7 350.00 mg/dL 56193 012 31487 5 350.00 mg/dL 00650 012 05161 6 111.00 mg/dL 54223 012 12802 0 111.00 mg/dL 50194 012 28301 5 98.40 Tympanic 13529 012 80596 6 114.00 mg/dL 52686 013 73442 4 74.00 mm[Hg] - Sitting 112.00 mm[Hg] - Sitting 98.40 Tympanic 70.00/ min 18.00/min 43652 013 54381 8 244.00 mg/dL 50489 013 71277 7 244.00 mg/dL 26178 013 63846 1 244.00 mg/dL 75777 013 19841 1 98.20 Tympanic 70521 013 30997 7 72.00 mm[Hg] - Sitting 119.00 mm[Hg] - Sitting 76.00/ min 76403 013 13543 7 253.00 mg/dL 03956 013 87293 4 253.00 mg/dL 81209 013 44395 9 156.00 mg/dL 07254 013 37678 5 156.00 mg/dL 11414 013 31619 4 97.90 Tympanic 53614 013 09471 5 189.00 mg/dL 98361 014 35677 9 98.10 Tympanic 91991 014 69359 0 61.00 mm[Hg] - Sitting 139.00 mm[Hg] - Sitting 98.20 Forehead Scan 99.00 % 66.00/ min 18.00/min 20315 014 43601 3 169.00 mg/dL 19433 014 47086 3 98.10 Tympanic 04239 014 59478 3 75.00 mm[Hg] - Sitting 121.00 mm[Hg] - Sitting 71.00/ min 05382 014 13113 9 221.00 mg/dL 73570 014 84160 9 62.00 mg/dL 81069 014 23376 5 62.00 mg/dL 08944 014 14256 8 156.00 mg/dL 85694 014 14929 6 98.10 Tympanic 94913 014 47287 7 156.00 mg/dL 94449 015 17073 4 38144 015 64564 7 62.00 mm[Hg] - Sitting 142.00 mm[Hg] - Sitting 98.20 Tympanic 99.00 % 67.00/ min 18.00/min 51756 015 42003 9 120.00 mg/dL 05807 015 51544 7 98.00 Tympanic 68332 015 54809 2 82.00 mm[Hg] - Sitting 119.00 /min 92148 015 00565 9 110.00 mg/dL 21578 015 67457 6 104.00 mg/dL 02798 015 30885 0 100.00 mg/dL 07857 015 72220 2 98.10 Tympanic 01637 015 60248 6 100.00 mg/dL 33452 016 40247 2 67.00 mm[Hg] - Sitting 147.00 mm[Hg] - Sitting 99.00 Tympanic 99.00 % 78.00/ min 20.00/min 44715 016 98866 5 158.00 mg/dL 11242 016 09555 1 158.00 mg/dL 99681 016 70596 2 158.00 mg/dL 22247 016 50785 0 66.00 mm[Hg] - Sitting 121.00 mm[Hg] - Sitting 74.00/ min 97043 016 07829 1 97.00 mg/dL 19880 016 98626 5 97.00 mg/dL 13973 016 69930 4 78.00 mg/dL 89289 016 52160 6 78.00 mg/dL 91325 016 16692 5 248.00 mg/dL 62992 016 21916 8 248.00 mg/dL 88952 017 41553 3 54.00 mm[Hg] - Sitting 142.00 mm[Hg] - Sitting 98.30 Tympanic 99.00 % 76.00/ min 18.00/min 66056 017 19821 4 267.00 mg/dL 12633 017 83125 6 73.00 mm[Hg] - Sitting 109.00 mm[Hg] - Sitting 70.00/ min 87656 017 01928 1 184.00 mg/dL 90023 017 14335 5 184.00 mg/dL 58080 017 13555 9 248.00 mg/dL 06234 017 37034 8 299.00 mg/dL 03147 017 70028 3 299.00 mg/dL 89560 018 62745 7 50.00 mm[Hg] - Sitting 125.00 mm[Hg] - Sitting 98.30 Tympanic 98.00 % 76.00/ min 16.00/min 68325 018 03458 3 168.00 mg/dL 02616 018 36004 0 75.00 mm[Hg] - Sitting 121.00 mm[Hg] - Sitting 70.00/ min 46870 018 70962 7 264.00 mg/dL 07234 018 50155 6 132.00 mg/dL 48774 018 03326 6 154.00 mg/dL 11756 018 04540 6 154.00 mg/dL 58169 019 48053 4 63.00 mm[Hg] - Sitting 147.00 mm[Hg] - Sitting 98.50 Tympanic 99.00 % 69.00/ min 18.00/min 87085 019 63952 9 159.00 mg/dL 87476 019 27658 8 73.00 mm[Hg] - Sitting 110.00 mm[Hg] - Sitting 72.00/ min 33495 019 59477 4 191.00 mg/dL 99207 019 15601 8 70.00 mg/dL 17798 019 55428 4 70.00 mg/dL 65120 019 40696 6 198.00 mg/dL 80433 019 42695 0 198.00 mg/dL 31472 020 23376 2 59.00 mm[Hg] - Sitting 131.00 mm[Hg] - Sitting 98.90 Tympanic 99.00 % 69.00/ min 18.00/min 35989 020 40879 7 299.00 mg/dL 23137 020 30110 0 62.00 mm[Hg] - Sitting 132.00 mm[Hg] - Sitting 68.00/ min 72227 020 76820 3 299.00 mg/dL 34830 020 82559 3 299.00 mg/dL 49016 020 33175 9 220.00 mg/dL 13769 020 76437 1 220.00 mg/dL 77214 020 74896 1 270.00 mg/dL 12147 020 72312 4 270.00 mg/dL 62942 020 17266 9 143.00 mg/dL 05077 020 73229 4 143.00 mg/dL 45189 021 68080 0 59.00 mm[Hg] - Sitting 121.00 mm[Hg] - Sitting 98.40 Forehead Scan 98.00 % 70.00/ min 16.00/min 03734 021 44192 0 140.00 mg/dL 66215 021 31474 0 67.00 mm[Hg] - Sitting 130.00 mm[Hg] - Sitting 68.00/ min 23414 021 62880 8 140.00 mg/dL 46978 021 39220 6 140.00 mg/dL 15582 021 60540 8 156.00 mg/dL 68247 021 65908 1 156.00 mg/dL 97915 021 91233 5 146.00 mg/dL 95241 021 08252 4 146.00 mg/dL 61812 021 54658 5 183.00 mg/dL 46431 021 83627 2 183.00 mg/dL 58228 022 61994 3 04346 022 14220 1 43.00 mm[Hg] - Sitting 113.00 mm[Hg] - Sitting 97.80 Tympanic 97.00 % 64.00/ min 18.00/min 17281 022 16629 6 270.00 mg/dL 54403 022 64223 5 68.00 mm[Hg] - Sitting 122.00 mm[Hg] - Sitting 67.00/ min 63525 022 23431 9 270.00 mg/dL 30212 022 84383 4 270.00 mg/dL 70373 022 37733 4 207.00 mg/dL 27057 022 93566 8 207.00 mg/dL 04713 022 60476 9 217.00 mg/dL 31142 022 66642 2 217.00 mg/dL 28908 022 54449 0 192.00 mg/dL 28985 022 11760 9 192.00 mg/dL 48107 023 18429 8 48.00 mm[Hg] - Sitting 116.00 mm[Hg] - Sitting 98.50 Tympanic 97.00 % 63.00/ min 18.00/min 55977 023 47417 9 68.00 mm[Hg] - Sitting 131.00 mm[Hg] - Sitting 68.00/ min 14798 023 79672 8 235.00 mg/dL 91832 023 95151 4 235.00 mg/dL 38648 023 82726 0 235.00 mg/dL 46927 023 11867 0 199.00 mg/dL 98302 023 35028 7 199.00 mg/dL 47655 023 92559 4 233.00 mg/dL 94493 023 70169 3 233.00 mg/dL 42417 023 27989 6 229.00 mg/dL 20659 023 93155 4 229.00 mg/dL 07237 024 42758 3 58.00 mm[Hg] - Sitting 102.00 mm[Hg] - Sitting 58.00/ min 19810 024 54232 9 156.00 mg/dL 08018 024 14339 4 156.00 mg/dL 02122 024 52658 3 156.00 mg/dL 42668 024 94288 0 343.00 mg/dL 12734 024 75897 6 343.00 mg/dL 09214 024 76375 2 167.00 mg/dL 73523 024 17659 0 167.00 mg/dL 72185 024 32213 8 155.00 mg/dL 47722 024 90360 7 155.00 mg/dL 96720 025 07156 0 51.00 mm[Hg] - Lying Down 109.00 mm[Hg] - Lying Down 98.60 Tympanic 95.00 % 67.00/ min 20.00/min 51900 025 58214 0 60.00 mm[Hg] - Sitting 118.00 mm[Hg] - Sitting 98.30 Forehead Scan 98.00 % 68.00/ min 16.00/min 90259 025 39618 3 235.00 mg/dL 16897 025 82213 1 63.00 mm[Hg] - Sitting 110.00 mm[Hg] - Sitting 75.00/ min 18964 025 49450 9 295.00 mg/dL 78661 025 02423 4 94.00 mg/dL 74230 025 74856 1 132.00 mg/dL 01097 025 23557 2 132.00 mg/dL 76529 026 34026 0 275.00 mg/dL 05260 026 84947 7 275.00 mg/dL 026 40666 1 275.00 mg/dL 026 61711 6 67.00 mm[Hg] - Sitting 123.00 mm[Hg] - Sitting 66.00/ min 026 11448 3 187.00 mg/dL 00410 026 55097 5 187.00 mg/dL Immunizations Vaccine Date Status COVID-19 09/20/2023 Completed Influenza 09/14/2024 Completed Other 10/08/2023 Completed Shingles 05/27/2011 Completed Tetanus 04/13/2022 Completed TDaP 04/13/2022 Completed Shingles 2 10/05/2018 Completed
--- OUTSIDE RECORDS SUMMARY | 2024-10-03 11:00 | External Medical Summary | Continuity Of Care Document ---
Author Name Unknown Address [address] [address] Organization [facility] () Care Team Providers Care [employer] Advisor Name Role Phone DO Machado Amy Primary Care Provider [phone] Allergies Allergy Reaction Start Date End Date [...] 3 0.1 mL 08/29 Inactiv e 2023 07667 75409 0 1 time Intrad ermal False Tubersol 5 tub. unit/0.1 mL intradermal injection solution [Tuberculin PPD] 0.1mL Intradermal 1 time For PPD 2nd Step Give 2nd Step PPD Day 1 and Read results Day 3 (schedule 7 days after 1st READ) 0.1mL 09/08 Inactiv e 2023 10861 49137 0 1 time Intrad ermal False [facility] - Nurse initials indicate verificatio n that [id number] vaccine was administere d by [facility] [...] order For Diabetes 08/25 Inactiv e 2023 98739 32634 9 4 times a day Subcut aneous False Aspirin 325 mg tablet [generic] 325 By Mouth Twice daily For Anticoagulati on 325 09/25 Active 2023 01886 63275 1 Twice daily By Mouth False Ferrous sulfate 325 mg (65 mg iron) tablet [generic] 325 By Mouth Once daily For anemia 325 2023 Active 2023 39226 81721 5 Once daily By Mouth False Linezolid 600 mg tablet [generic] 600 mg By Mouth Every 12 hours For MRSA INFECTION L BKA 600 mg 08/25 Inactiv e 2023 96535 60438 1 Every 12 hours By Mouth False Cefpodoxime 200 mg tablet [generic] 400 mg By Mouth Twice daily For MRSA INFECTION L BKA 400 mg 08/25 Inactiv e 2023 87286 84164 0 Twice daily By Mouth False Coenzyme Q10 100 mg tablet [generic] 100 mg By Mouth Once daily For SUPP 100 mg 2023 Active 2023 82005 06068 0 Once daily By Mouth False Levothyroxi ne 50 mcg tablet [generic] 50mcg By Mouth Once daily For hypothyroidis m 50mcg 2023 Active 2023 92356 44335 0 Once daily By Mouth False One A Day Men Complete 240 mcg-25 mcg-300 mcg tablet 1 tab By Mouth Once daily For supplement 1 tab 2023 Active 2023 41263 12244 1 Once daily By Mouth False Cholecalcif adalberto (vitamin D3) 50 mcg (2,000 unit) tablet [generic] 1 TAB By Mouth Once daily For SUPP 1 TAB 2023 Active 2023 56826 21142 1 Once daily By Mouth False Cetirizine 10 mg tablet [generic] 1 TAB By Mouth At bedtime For Allergies 1 TAB 2023 Active 2023 26183 65050 0 At bedtime By Mouth False Timolol maleate 0.25 % eye drops [generic] 1 drop Both Eyes Twice daily For glaucoma 1 drop 2023 Active 2023 33179 43867 5 Twice daily Both Eyes False Alendronate 35 mg tablet [generic] 35mg By Mouth Every week For SIADH 35mg 08/31 Inactiv e 2023 18342 57995 5 Every week By Mouth False Lantus Solostar U-100 Insulin 100 unit/mL (3 mL) subcutaneou s pen 18 units Subcutaneous Every morning For DIABETES 18 units 08/25 Inactiv e 2023 02154 96713 0 Every morning Subcut aneous False Lantus Solostar U-100 Insulin 100 unit/mL (3 mL) subcutaneou s pen 18 units Subcutaneous Every morning For DIABETES 18 units 2023 Active 2023 70967 61394 0 Every morning Subcut aneous False Linezolid 600 mg tablet [generic] 600 mg By Mouth Every 12 hours For MRSA INFECTION L BKA 600 mg 08/28 Inactiv e 2023 13769 13676 1 Every 12 hours By Mouth False [...] order For Diabetes 08/31 Inactiv e 2023 56101 17232 9 4 times a day Subcut aneous False Cefpodoxime 200 mg tablet [generic] 400 mg By Mouth Twice daily For MRSA INFECTION L BKA 400 mg 08/28 Inactiv e 2023 40837 48717 0 Twice daily By Mouth False Brimonidine 0.1 % eye drops [generic] 1 drop Both Eyes Twice daily For glaucoma 1 drop 2023 Active 2023 82327 82197 0 Twice daily Both Eyes False Metoprolol succinate ER 50 mg tablet,exte nded release 24 hr [generic] 50 mg By Mouth Once daily HOLD FOR SBP <100, or pulse <60 For HTN 50 mg 2023 Active 2023 96315 82418 1 Once daily By Mouth False Amlodipine 2.5 mg tablet [generic] 2.5 mg By Mouth Once daily For HTN 2.5 mg 2023 Active 2023 76666 98567 5 Once daily By Mouth False Docusate sodium 100 mg capsule [generic] 100mg By Mouth Twice daily as needed For constipation HOLD FOR LOOSE STOOLS 100mg 2023 Active 2023 18992 56409 1 Twice daily as needed By Mouth False Atorvastati n 40 mg tablet [generic] 40mg By Mouth Once daily For HDL 40mg 08/26 Inactiv e 2023 37084 40081 5 Once daily By Mouth False Tylenol 325 mg tablet 2 tabs By Mouth Every 4 hours as needed For Pain DO NOT EXCEED 3000 MG APAP/24 Hours 2 tabs 2023 Active 2023 44831 56280 0 Every 4 hours as needed By Mouth False Tylenol 325 mg tablet 2 tabs By Mouth Every 4 hours as needed For Fever >100 DO NOT EXCEED 3000 MG APAP/24 Hours 2 tabs 2023 Active 2023 31710 64537 0 Every 4 hours as needed By Mouth False Dulcolax (bisacodyl) 10 mg rectal suppository One Suppository per rectum PRN if Milk of Magnisia ineffective. Give on day 5 of no BM 1 sup 2023 Active 2023 63380 06174 1 Daily as needed Rectal False Fleet Enema 19 gram-7 gram/118 mL Administer per rectum PRN one time if dulcolax suppository not effective. Give on day 6 of no BM 1 2023 Active 2023 58822 47384 6 Daily as needed Rectal False Dextrose 50 % in water (D50W) intravenous solution [generic] Dextrose 50% evonne 20-50 ml (slow push) Intravenous if Glucagon not effective after 15 minutes. CALL 911 for ED Evaluation. 50% evonne 2023 Active 2023 01829 14590 9 Intrav enous False Glucagon (HCl) Emergency Kit 1 mg solution for injection Administer Glucagon 1 mg Intramuscular if 15 minutes after GLucose Gel is administered Glucose remains less than 70 1 mg 2023 Active 2023 38531 71937 2 Intram uscula r False Glucose Gel 40 % oral gel [Dextrose] PRN If resident is unable to swallow (with or without symptoms) and Glucose results less than 70 give GLucose 40% Gel 1 tube orally - Recheck Glucose 15 minutes after administratio n. 1 tube 2023 Active 2023 32520 00945 8 By Mouth False Milk of Magnesia 400 mg/5 mL oral suspension [Magnesium hydroxide] PRN 30ml By Mouth Daily as needed for constipation one time daily if no BM, on day 4 of no BM (PRN refer to instructions) For Constipation 30 mL 2023 Active 2023 02719 30073 6 Daily as needed By Mouth False Atorvastati n 40 mg tablet [generic] 08/26 Inactiv e 2023 30706 68912 5 Atorvastati n 40 mg tablet [generic] 40mg By Mouth Once daily For HDL 40mg 2023 Active 2023 86719 24536 5 Once daily By Mouth False Insulin aspart (U-100) 100 unit/mL (3 mL) subcutaneou s pen [generic] 15 units Subcutaneous 1 time For dm 15 units 08/26 Inactiv e 2023 82312 69670 5 1 time Subcut aneous False Humalog KwikPen (U-100) Insulin 100 unit/mL subcutaneou s 15 units Subcutaneous 1 time For dm 15 units 08/27 Inactiv e 2023 54415 21880 9 1 time Subcut aneous False Linezolid 600 mg tablet [generic] 600 mg By Mouth Every 12 hours For MRSA INFECTION L BKA 600 mg 09/06 Inactiv e 2023 95134 90413 1 Every 12 hours By Mouth False Cefpodoxime 200 mg tablet [generic] 400 mg By Mouth Twice daily For MRSA INFECTION L BKA 400 mg 08/31 Inactiv e 2023 96234 26505 0 Twice daily By Mouth False Senna 8.6 mg tablet 8.6 mg By Mouth Once daily For Constipation 8.6 mg 09/07 Inactiv e 2023 63055 78032 1 Once daily By Mouth False Humalog [...] abnormalities . Per Carb 2023 Active 2023 48198 91695 9 4 times a day Subcut aneous False Alendronate 35 mg tablet [generic] 08/31 Inactiv e 2023 25296 65050 5 Alendronate 35 mg tablet [generic] 35mg By Mouth Every week For Osteoporosis 35mg 202300 /0000 Active 2023 19838 07884 5 Every week By Mouth False ProSource 10 gram-100 kcal/30 mL oral liquid 30 ml By Mouth Once daily For wound healing 30 ml 2023 Active 2023 75414 48384 2 Once daily By Mouth False Clotrimazol e 1 % topical cream [generic] 1 applicaiton Topical Twice daily For tinea, apply to groin rash after cleansing and throughouly drying. Can discontinue order 3 days after rash resolves. 1 applica stacy 09/08 Inactiv e 2023 65832 87097 0 Twice daily Topica l False MAGIC MIX 1:1:1:1 : ZINC OXIDE EXTERNAL OINTMENT 40%; HYDROCOTISO NE EXTERNAL CREAM 1%; NYSTATIN EXTERNAL CREAM 487134C/GM; SILVADENE CREAM 1% Every shift Apply topically to MASD area on coccyx/buttoc ks each shift and as needed for incontinence care For MASD on coccyx layer 2023 Active 2023 Every shift Topica l False Senna 8.6 mg tablet 8.6 mg By Mouth Once daily For Constipation 8.6 mg 09/07 Inactiv e 2023 36318 76030 1 Once daily By Mouth False Senna 8.6 mg tablet 8.6 mg By Mouth Once daily As Needed For Constipation 8.6 mg 2023 Active 2023 04311 51050 1 Once daily By Mouth False BD AutoShield Duo Pen Needle 30 gauge x 3/16in 1 pen needle Subcutaneous 4 times a day For DM 1 pen needle 2023 Active 2023 41091 33164 5 4 times a day Subcut aneous False Hydrocortis one 1 % topical ointment [generic] 1 application Topical Twice daily For tinea *mix 1:1 with clotrimazole cream and apply to clean/dry groin rash 1 applica peggy 09/19 Active 2023 46623 70125 6 Twice daily Topica l False Clotrimazol e 1 % topical cream [generic] 1 applicaiton Topical Twice daily For tinea, apply to groin rash after cleansing and throughouly drying. MIX WITH HYDROCORTISON E Can discontinue order 3 days after rash resolves. 1 applica stacy 2023 Active 2023 29401 90660 0 Twice daily Topica l False Humalog KwikPen (U-100) Insulin 100 unit/mL subcutaneou s 08/31 Inactiv e 2023 11083 61347 9 MediHoney HCS 4 1/2in X 4 1/2in bandage Cleanse area with NSS, apply one [facility] hydrocolloid dressing, non adherent dressing, kerlix secure with paper tape daily. For wound stage III 1 2023 Active 2023 30537 86645 1 Once daily Topica l False Problems [...] weight Temperature SpO2 Blood Sugar Pulse Respirations 77304 8 67.00 mm[Hg] - Sitting 145.00 mm[Hg] - Sitting 98.50 Forehead Scan 96.00 % 81.00/ min 16.00/min 004 22392 2 67.00 mm[Hg] - Sitting 145.00 mm[Hg] - Sitting 98.50 Tympanic 81.00/ min 16.00/min 004 64989 5 56.00 mm[Hg] - Sitting 142.00 mm[Hg] - Sitting 136.40 NI 100.20 Tympanic 96.00 % 92.00/ min 18.00/min 11014 004 98251 6 30988 004 44852 4 143.00 mg/dL 55097 0 97.80 Tympanic 005 06311 7 60.00 mm[Hg] - Sitting 140.00 mm[Hg] - Sitting 98.00 Tympanic 84.00/ min 18.00/min 58335 005 67214 0 63.00 mm[Hg] - Sitting 141.00 mm[Hg] - Sitting 98.20 Tympanic 92.00 % 63.00/ min 16.00/min 23689 005 16383 8 69.00 mm[Hg] - Sitting 106.00 mm[Hg] - Sitting 97.20 Tympanic 005 44943 7 69.00/ min 16.00/min 18285 005 10941 3 69.00 mm[Hg] - Sitting 106.00 mm[Hg] - Sitting 98.20 Tympanic 69.00/ min 16.00/min 10209 005 18076 1 367.00 mg/dL 43117 005 26213 2 97.20 Tympanic 80188 005 29250 4 97.20 Tympanic 98610 005 09294 0 69.00 mm[Hg] - Sitting 106.00 mm[Hg] - Sitting 69.00/ min 89137 005 08000 3 452.00 mg/dL 20027 005 19193 3 452.00 mg/dL 87760 005 81999 5 352.00 mg/dL 38429 005 32186 3 352.00 mg/dL 43595 005 71532 7 98.20 Tympanic 20387 005 3 101.00 mg/dL 58054 005 8 101.00 mg/dL 01566 006 03551 4 66.00 mm[Hg] - Sitting 107.00 mm[Hg] - Sitting 98.00 Tympanic 66.00/ min 18.00/min 32567 006 11002 0 62.00 mm[Hg] - Sitting 162.00 mm[Hg] - Sitting 98.20 Tympanic 96.00 % 60.00/ min 16.00/min 12027 006 55590 4 62.00 mm[Hg] - Sitting 162.00 mm[Hg] - Sitting 98.00 Tympanic 70.00/ min 18.00/min 44895 006 27235 8 62.00 mm[Hg] - Sitting 162.00 mm[Hg] - Sitting 98.20 Tympanic 70.00/ min 18.00/min 63054 006 53283 2 66.00 mm[Hg] - Sitting 132.00 mm[Hg] - Sitting 98.60 Tympanic 74.00/ min 16.00/min 48434 006 98910 5 159.00 mg/dL 19196 006 93332 1 159.00 mg/dL 79736 006 45659 8 98.00 Tympanic 14600 006 32517 2 62.00 mm[Hg] - Sitting 162.00 mm[Hg] - Sitting 70.00/ min 51766 006 09353 7 264.00 mg/dL 68127 006 73562 7 264.00 mg/dL 12731 006 92317 4 196.00 mg/dL 92488 006 60722 3 98.20 Tympanic 39264 006 67672 6 271.00 mg/dL 03739 007 60254 3 97.20 Tympanic 74674 007 61071 2 63.00 mm[Hg] - Sitting 132.00 mm[Hg] - Sitting 98.50 Tympanic 94.00 % 66.00/ min 16.00/min 01549 007 10915 5 188.00 mg/dL 06562 007 02035 2 188.00 mg/dL 71841 007 36650 2 188.00 mg/dL 80719 007 61915 7 97.20 Tympanic 36609 007 63689 6 97.20 Tympanic 80126 007 45564 5 67.00 mm[Hg] - Sitting 152.00 mm[Hg] - Sitting 68.00/ min 46807 007 55839 0 141.00 mg/dL 48410 007 88510 3 141.00 mg/dL 56028 007 42053 1 366.00 mg/dL 72915 007 69384 7 366.00 mg/dL 30773 007 76974 7 98.00 Tympanic 11890 007 60270 6 324.00 mg/dL 49817 007 31333 3 98.00 Tympanic 49898 007 94211 7 324.00 mg/dL 75815 008 68622 0 98.00 Tympanic 02994 008 44070 2 97.90 Tympanic 18855 008 40061 0 98.20 Tympanic 81526 008 40044 0 73.00 mm[Hg] - Sitting 156.00 mm[Hg] - Sitting 98.60 Tympanic 99.00 % 66.00/ min 20.00/min 20551 008 70390 5 137.00 mg/dL 77716 008 18834 7 137.00 mg/dL 30523 008 58791 2 97.90 Tympanic 69479 008 15624 1 137.00 mg/dL 14583 008 45946 8 97.90 Tympanic 29063 008 23822 5 67.00 mm[Hg] - Sitting 124.00 /min 22752 008 51857 6 212.00 mg/dL 66181 008 56880 6 212.00 mg/dL 65626 008 74616 9 317.00 mg/dL 88446 008 47951 4 317.00 mg/dL 47388 008 29626 8 252.00 mg/dL 10053 008 52589 0 98.70 Tympanic 84184 008 97285 7 252.00 mg/dL 76907 008 97100 3 98.70 Tympanic 46869 009 20565 9 98.70 Tympanic 37843 009 00366 3 98.20 Tympanic 50882 009 84679 5 98.40 Tympanic 33818 009 44359 5 57.00 mm[Hg] - Sitting 129.00 mm[Hg] - Sitting 98.30 Tympanic 97.00 % 65.00/ min 18.00/min 33723 009 04473 1 255.00 mg/dL 17028 009 01965 4 255.00 mg/dL 79145 009 39912 5 98.20 Tympanic 02228 009 37197 0 255.00 mg/dL 08701 009 52052 0 98.20 Tympanic 90749 009 59590 4 63.00 mm[Hg] - Lying Down 102.00 mm[Hg] - Lying Down 58.00/ min 98604 009 18036 0 167.00 mg/dL 55774 009 93402 1 167.00 mg/dL 49691 009 03944 2 164.00 mg/dL 94796 009 52655 1 164.00 mg/dL 17142 009 16853 5 208.00 mg/dL 63084 010 37786 3 98.40 Tympanic 72049 010 38396 5 98.40 Tympanic 67277 010 04702 7 66 NI 03583 010 03780 4 60.00 mm[Hg] - Sitting 143.00 mm[Hg] - Sitting 98.90 Tympanic 98.00 % 67.00/ min 18.00/min 88261 010 26252 2 214.00 mg/dL 13339 010 71701 0 214.00 mg/dL 82511 010 70919 7 214.00 mg/dL 10143 010 34204 6 64.00 mm[Hg] - Sitting 110.00 mm[Hg] - Sitting 72.00/ min 49779 010 31321 7 98.40 Tympanic 49386 010 78449 1 212.00 mg/dL 83107 010 10602 2 212.00 mg/dL 20434 010 19586 1 115.00 mg/dL 90850 010 23337 0 115.00 mg/dL 01610 010 93974 4 98.50 Tympanic 48270 010 87228 4 150.00 mg/dL 32777 010 25190 0 150.00 mg/dL 95306 011 58253 9 98.60 Tympanic 20565 011 18013 1 67.00 mm[Hg] - Sitting 144.00 mm[Hg] - Sitting 98.20 Tympanic 98.00 % 61.00/ min 18.00/min 00388 011 51190 7 290.00 mg/dL 78800 011 28906 2 290.00 mg/dL 68774 011 89859 2 290.00 mg/dL 89822 011 52298 7 54.00 mm[Hg] - Sitting 136.00 mm[Hg] - Sitting 101.00 /min 54896 011 38070 7 98.60 Tympanic 20773 011 55953 5 240.00 mg/dL 35613 011 68825 1 240.00 mg/dL 55313 011 21851 1 156.00 mg/dL 53666 011 25100 9 156.00 mg/dL 66306 011 97518 0 97.80 Tympanic 12564 011 87480 8 343.00 mg/dL 92690 012 57207 9 97.90 Tympanic 14402 012 93644 2 466.00 mg/dL 28484 012 67099 1 466.00 mg/dL 57405 012 94050 3 466.00 mg/dL 61872 012 09861 8 97.90 Tympanic 25045 012 31425 8 56.00 mm[Hg] - Sitting 96.00 mm[Hg] - Sitting 61.00/ min 96116 012 21988 7 350.00 mg/dL 77815 012 01162 5 350.00 mg/dL 39437 012 82796 6 111.00 mg/dL 01879 012 04496 0 111.00 mg/dL 60044 012 76184 5 98.40 Tympanic 78374 012 31309 6 114.00 mg/dL 98524 013 54780 4 74.00 mm[Hg] - Sitting 112.00 mm[Hg] - Sitting 98.40 Tympanic 70.00/ min 18.00/min 19994 013 29997 8 244.00 mg/dL 94967 013 04253 7 244.00 mg/dL 58287 013 51792 1 244.00 mg/dL 77706 013 50155 1 98.20 Tympanic 29781 013 25060 7 72.00 mm[Hg] - Sitting 119.00 mm[Hg] - Sitting 76.00/ min 91821 013 38909 7 253.00 mg/dL 72205 013 09427 4 253.00 mg/dL 14691 013 00741 9 156.00 mg/dL 24376 013 74741 5 156.00 mg/dL 39048 013 81356 4 97.90 Tympanic 25972 013 11248 5 189.00 mg/dL 60473 014 26476 9 98.10 Tympanic 44862 014 54982 0 61.00 mm[Hg] - Sitting 139.00 mm[Hg] - Sitting 98.20 Forehead Scan 99.00 % 66.00/ min 18.00/min 70482 014 99618 3 169.00 mg/dL 25187 014 55512 3 98.10 Tympanic 95531 014 38517 3 75.00 mm[Hg] - Sitting 121.00 mm[Hg] - Sitting 71.00/ min 31049 014 36142 9 221.00 mg/dL 87055 014 11934 9 62.00 mg/dL 45899 014 55262 5 62.00 mg/dL 38043 014 71273 8 156.00 mg/dL 58329 014 18651 6 98.10 Tympanic 25380 014 91372 7 156.00 mg/dL 19577 015 68241 4 82700 015 39205 7 62.00 mm[Hg] - Sitting 142.00 mm[Hg] - Sitting 98.20 Tympanic 99.00 % 67.00/ min 18.00/min 42602 015 73052 9 120.00 mg/dL 22357 015 74574 7 98.00 Tympanic 87567 015 75991 2 82.00 mm[Hg] - Sitting 119.00 /min 73646 015 84177 9 110.00 mg/dL 66202 015 96399 6 104.00 mg/dL 68486 015 37530 0 100.00 mg/dL 44908 015 04402 2 98.10 Tympanic 25507 015 28558 6 100.00 mg/dL 16034 016 53171 2 67.00 mm[Hg] - Sitting 147.00 mm[Hg] - Sitting 99.00 Tympanic 99.00 % 78.00/ min 20.00/min 60572 016 35165 5 158.00 mg/dL 57043 016 76305 1 158.00 mg/dL 92485 016 89565 2 158.00 mg/dL 28217 016 11646 0 66.00 mm[Hg] - Sitting 121.00 mm[Hg] - Sitting 74.00/ min 01162 016 98727 1 97.00 mg/dL 48166 016 35419 5 97.00 mg/dL 24784 016 40885 4 78.00 mg/dL 96100 016 24189 6 78.00 mg/dL 01620 016 51545 5 248.00 mg/dL 70030 016 64483 8 248.00 mg/dL 63220 017 74531 3 54.00 mm[Hg] - Sitting 142.00 mm[Hg] - Sitting 98.30 Tympanic 99.00 % 76.00/ min 18.00/min 59374 017 48283 4 267.00 mg/dL 93066 017 97334 6 73.00 mm[Hg] - Sitting 109.00 mm[Hg] - Sitting 70.00/ min 36439 017 97979 1 184.00 mg/dL 18897 017 13077 5 184.00 mg/dL 28813 017 00532 9 248.00 mg/dL 55398 017 81719 8 299.00 mg/dL 03582 017 39162 3 299.00 mg/dL 30187 018 51993 7 50.00 mm[Hg] - Sitting 125.00 mm[Hg] - Sitting 98.30 Tympanic 98.00 % 76.00/ min 16.00/min 26210 018 05088 3 168.00 mg/dL 04417 018 70300 0 75.00 mm[Hg] - Sitting 121.00 mm[Hg] - Sitting 70.00/ min 12492 018 15669 7 264.00 mg/dL 72068 018 64019 6 132.00 mg/dL 70170 018 73390 6 154.00 mg/dL 36373 018 73491 6 154.00 mg/dL 45187 019 60878 4 63.00 mm[Hg] - Sitting 147.00 mm[Hg] - Sitting 98.50 Tympanic 99.00 % 69.00/ min 18.00/min 27753 019 97443 9 159.00 mg/dL 69321 019 57473 8 73.00 mm[Hg] - Sitting 110.00 mm[Hg] - Sitting 72.00/ min 19763 019 57515 4 191.00 mg/dL 41142 019 74575 8 70.00 mg/dL 53059 019 57196 4 70.00 mg/dL 48088 019 12891 6 198.00 mg/dL 35123 019 63833 0 198.00 mg/dL 14026 020 72538 2 59.00 mm[Hg] - Sitting 131.00 mm[Hg] - Sitting 98.90 Tympanic 99.00 % 69.00/ min 18.00/min 75746 020 06514 7 299.00 mg/dL 53679 020 25774 0 62.00 mm[Hg] - Sitting 132.00 mm[Hg] - Sitting 68.00/ min 70937 020 77981 3 299.00 mg/dL 75117 020 73546 3 299.00 mg/dL 11439 020 95799 9 220.00 mg/dL 96639 020 35178 1 220.00 mg/dL 12548 020 45186 1 270.00 mg/dL 87203 020 97056 4 270.00 mg/dL 66056 020 13392 9 143.00 mg/dL 34848 020 00717 4 143.00 mg/dL 57513 021 98250 0 59.00 mm[Hg] - Sitting 121.00 mm[Hg] - Sitting 98.40 Forehead Scan 98.00 % 70.00/ min 16.00/min 93638 021 28421 0 140.00 mg/dL 24012 021 68823 0 67.00 mm[Hg] - Sitting 130.00 mm[Hg] - Sitting 68.00/ min 50306 021 81023 8 140.00 mg/dL 79635 021 47117 6 140.00 mg/dL 50123 021 00620 8 156.00 mg/dL 66808 021 17626 1 156.00 mg/dL 87098 021 81441 5 146.00 mg/dL 10560 021 13104 4 146.00 mg/dL 02437 021 01490 5 183.00 mg/dL 03129 021 56760 2 183.00 mg/dL 07083 022 01744 3 15181 022 55959 1 43.00 mm[Hg] - Sitting 113.00 mm[Hg] - Sitting 97.80 Tympanic 97.00 % 64.00/ min 18.00/min 68201 022 36972 6 270.00 mg/dL 03432 022 17901 5 68.00 mm[Hg] - Sitting 122.00 mm[Hg] - Sitting 67.00/ min 15973 022 92090 9 270.00 mg/dL 99134 022 68453 4 270.00 mg/dL 79475 022 15465 4 207.00 mg/dL 75941 022 43792 8 207.00 mg/dL 20563 022 09403 9 217.00 mg/dL 92236 022 51920 2 217.00 mg/dL 87557 022 57735 0 192.00 mg/dL 63380 022 22169 9 192.00 mg/dL 59608 023 14284 8 48.00 mm[Hg] - Sitting 116.00 mm[Hg] - Sitting 98.50 Tympanic 97.00 % 63.00/ min 18.00/min 51602 023 74171 9 68.00 mm[Hg] - Sitting 131.00 mm[Hg] - Sitting 68.00/ min 52422 023 45456 8 235.00 mg/dL 30563 023 21035 4 235.00 mg/dL 01500 023 15117 0 235.00 mg/dL 23225 023 99345 0 199.00 mg/dL 27187 023 07156 7 199.00 mg/dL 96562 023 91592 4 233.00 mg/dL 98743 023 42411 3 233.00 mg/dL 47983 023 03157 6 229.00 mg/dL 39944 023 50299 4 229.00 mg/dL 92599 024 22749 3 58.00 mm[Hg] - Sitting 102.00 mm[Hg] - Sitting 58.00/ min 17545 024 22488 9 156.00 mg/dL 62460 024 96701 4 156.00 mg/dL 60755 024 63708 3 156.00 mg/dL 00174 024 73889 0 343.00 mg/dL 65929 024 51345 6 343.00 mg/dL 35272 024 11203 2 167.00 mg/dL 18482 024 81024 0 167.00 mg/dL 59960 024 86453 8 155.00 mg/dL 16466 024 30984 7 155.00 mg/dL 22582 025 76323 0 51.00 mm[Hg] - Lying Down 109.00 mm[Hg] - Lying Down 98.60 Tympanic 95.00 % 67.00/ min 20.00/min 77904 025 94809 0 60.00 mm[Hg] - Sitting 118.00 mm[Hg] - Sitting 98.30 Forehead Scan 98.00 % 68.00/ min 16.00/min 47419 025 02220 3 235.00 mg/dL 12882 025 83976 1 63.00 mm[Hg] - Sitting 110.00 mm[Hg] - Sitting 75.00/ min 56411 025 11831 9 295.00 mg/dL 30663 025 37668 4 94.00 mg/dL 52383 025 90966 1 132.00 mg/dL 16374 025 95162 2 132.00 mg/dL 54142 026 76712 8 50.00 mm[Hg] - Sitting 123.00 mm[Hg] - Sitting 98.50 Tympanic 95.00 % 66.00/ min 18.00/min 09250 026 06722 0 275.00 mg/dL 19740 026 80880 7 275.00 mg/dL 34498 026 19410 1 275.00 mg/dL 04090 026 13678 6 67.00 mm[Hg] - Sitting 123.00 mm[Hg] - Sitting 66.00/ min 75811 026 02897 3 187.00 mg/dL 19438 026 40154 5 187.00 mg/dL 33671 026 16634 0 167.00 mg/dL 84507 026 91393 8 167.00 mg/dL 14288 026 32987 6 387.00 mg/dL 39279 027 51467 9 189.00 mg/dL 48792 027 89007 4 67.00 mm[Hg] - Sitting 118.00 mm[Hg] - Sitting 66.00/ min 14296 027 16622 2 189.00 mg/dL 30980 027 64953 7 189.00 mg/dL 39201 027 35787 1 105.00 mg/dL 97973 027 96926 8 105.00 mg/dL 92872 027 98702 4 223.00 mg/dL 37575 027 49974 9 223.00 mg/dL Immunizations Vaccine Date Status COVID-19 09/20/2023 Completed Influenza 09/14/2024 Completed Other 10/08/2023 Completed Shingles 05/27/2011 Completed Tetanus 04/13/2022 Completed TDaP 04/13/2022 Completed Shingles 2 10/05/2018 Completed
--- OUTSIDE RECORDS SUMMARY | 2024-10-03 11:01 | External Medical Summary | Continuity Of Care Document ---
Author Name Unknown Address [address] [address] Organization [facility] () Care Team Providers Care Civil Laboratory Technician Name Role Phone DO Machado Amy Primary Care Provider [phone] Allergies Allergy Reaction Start Date End Date [...] 3 0.1 mL 08/29 Inactiv e 2023 51264 62225 0 1 time Intrad ermal False Tubersol 5 tub. unit/0.1 mL intradermal injection solution [Tuberculin PPD] 0.1mL Intradermal 1 time For PPD 2nd Step Give 2nd Step PPD Day 1 and Read results Day 3 (schedule 7 days after 1st READ) 0.1mL 09/08 Inactiv e 2023 62250 53633 0 1 time Intrad ermal False [facility] - Nurse initials indicate verificatio n that [id number] vaccine was administere d by [facility] [...] order For Diabetes 08/25 Inactiv e 2023 87346 49500 9 4 times a day Subcut aneous False Aspirin 325 mg tablet [generic] 325 By Mouth Twice daily For Anticoagulati on 325 09/25 Active 2023 11648 36735 1 Twice daily By Mouth False Ferrous sulfate 325 mg (65 mg iron) tablet [generic] 325 By Mouth Once daily For anemia 325 2023 Active 2023 34311 89749 5 Once daily By Mouth False Linezolid 600 mg tablet [generic] 600 mg By Mouth Every 12 hours For MRSA INFECTION L BKA 600 mg 08/25 Inactiv e 2023 60719 25493 1 Every 12 hours By Mouth False Cefpodoxime 200 mg tablet [generic] 400 mg By Mouth Twice daily For MRSA INFECTION L BKA 400 mg 08/25 Inactiv e 2023 56781 30727 0 Twice daily By Mouth False Coenzyme Q10 100 mg tablet [generic] 100 mg By Mouth Once daily For SUPP 100 mg 2023 Active 2023 46147 58038 0 Once daily By Mouth False Levothyroxi ne 50 mcg tablet [generic] 50mcg By Mouth Once daily For hypothyroidis m 50mcg 2023 Active 2023 00319 85299 0 Once daily By Mouth False One A Day Men Complete 240 mcg-25 mcg-300 mcg tablet 1 tab By Mouth Once daily For supplement 1 tab 2023 Active 2023 71128 94346 1 Once daily By Mouth False Cholecalcif adalberto (vitamin D3) 50 mcg (2,000 unit) tablet [generic] 1 TAB By Mouth Once daily For SUPP 1 TAB 2023 Active 2023 13028 82181 1 Once daily By Mouth False Cetirizine 10 mg tablet [generic] 1 TAB By Mouth At bedtime For Allergies 1 TAB 2023 Active 2023 52319 63653 0 At bedtime By Mouth False Timolol maleate 0.25 % eye drops [generic] 1 drop Both Eyes Twice daily For glaucoma 1 drop 2023 Active 2023 71829 04079 5 Twice daily Both Eyes False Alendronate 35 mg tablet [generic] 35mg By Mouth Every week For SIADH 35mg 08/31 Inactiv e 2023 01330 51878 5 Every week By Mouth False Lantus Solostar U-100 Insulin 100 unit/mL (3 mL) subcutaneou s pen 18 units Subcutaneous Every morning For DIABETES 18 units 08/25 Inactiv e 2023 44378 91443 0 Every morning Subcut aneous False Lantus Solostar U-100 Insulin 100 unit/mL (3 mL) subcutaneou s pen 18 units Subcutaneous Every morning For DIABETES 18 units 2023 Active 2023 53146 70122 0 Every morning Subcut aneous False Linezolid 600 mg tablet [generic] 600 mg By Mouth Every 12 hours For MRSA INFECTION L BKA 600 mg 08/28 Inactiv e 2023 10041 20283 1 Every 12 hours By Mouth False [...] order For Diabetes 08/31 Inactiv e 2023 89442 43450 9 4 times a day Subcut aneous False Cefpodoxime 200 mg tablet [generic] 400 mg By Mouth Twice daily For MRSA INFECTION L BKA 400 mg 08/28 Inactiv e 2023 00648 41612 0 Twice daily By Mouth False Brimonidine 0.1 % eye drops [generic] 1 drop Both Eyes Twice daily For glaucoma 1 drop 2023 Active 2023 33230 93541 0 Twice daily Both Eyes False Metoprolol succinate ER 50 mg tablet,exte nded release 24 hr [generic] 50 mg By Mouth Once daily HOLD FOR SBP <100, or pulse <60 For HTN 50 mg 2023 Active 2023 60669 19773 1 Once daily By Mouth False Amlodipine 2.5 mg tablet [generic] 2.5 mg By Mouth Once daily For HTN 2.5 mg 2023 Active 2023 28242 82757 5 Once daily By Mouth False Docusate sodium 100 mg capsule [generic] 100mg By Mouth Twice daily as needed For constipation HOLD FOR LOOSE STOOLS 100mg 2023 Active 2023 01665 91983 1 Twice daily as needed By Mouth False Atorvastati n 40 mg tablet [generic] 40mg By Mouth Once daily For HDL 40mg 08/26 Inactiv e 2023 34030 31991 5 Once daily By Mouth False Tylenol 325 mg tablet 2 tabs By Mouth Every 4 hours as needed For Pain DO NOT EXCEED 3000 MG APAP/24 Hours 2 tabs 2023 Active 2023 45746 38187 0 Every 4 hours as needed By Mouth False Tylenol 325 mg tablet 2 tabs By Mouth Every 4 hours as needed For Fever >100 DO NOT EXCEED 3000 MG APAP/24 Hours 2 tabs 2023 Active 2023 86976 98894 0 Every 4 hours as needed By Mouth False Dulcolax (bisacodyl) 10 mg rectal suppository One Suppository per rectum PRN if Milk of Magnisia ineffective. Give on day 5 of no BM 1 sup 2023 Active 2023 32939 96146 1 Daily as needed Rectal False Fleet Enema 19 gram-7 gram/118 mL Administer per rectum PRN one time if dulcolax suppository not effective. Give on day 6 of no BM 1 2023 Active 2023 92403 41121 6 Daily as needed Rectal False Dextrose 50 % in water (D50W) intravenous solution [generic] Dextrose 50% evonne 20-50 ml (slow push) Intravenous if Glucagon not effective after 15 minutes. CALL 911 for ED Evaluation. 50% evonne 2023 Active 2023 09955 20301 9 Intrav enous False Glucagon (HCl) Emergency Kit 1 mg solution for injection Administer Glucagon 1 mg Intramuscular if 15 minutes after GLucose Gel is administered Glucose remains less than 70 1 mg 2023 Active 2023 73597 70846 2 Intram uscula r False Glucose Gel 40 % oral gel [Dextrose] PRN If resident is unable to swallow (with or without symptoms) and Glucose results less than 70 give GLucose 40% Gel 1 tube orally - Recheck Glucose 15 minutes after administratio n. 1 tube 2023 Active 2023 01205 92695 8 By Mouth False Milk of Magnesia 400 mg/5 mL oral suspension [Magnesium hydroxide] PRN 30ml By Mouth Daily as needed for constipation one time daily if no BM, on day 4 of no BM (PRN refer to instructions) For Constipation 30 mL 2023 Active 2023 67885 95530 6 Daily as needed By Mouth False Atorvastati n 40 mg tablet [generic] 08/26 Inactiv e 2023 32636 99927 5 Atorvastati n 40 mg tablet [generic] 40mg By Mouth Once daily For HDL 40mg 2023 Active 2023 46285 01558 5 Once daily By Mouth False Insulin aspart (U-100) 100 unit/mL (3 mL) subcutaneou s pen [generic] 15 units Subcutaneous 1 time For dm 15 units 08/26 Inactiv e 2023 95670 86609 5 1 time Subcut aneous False Humalog KwikPen (U-100) Insulin 100 unit/mL subcutaneou s 15 units Subcutaneous 1 time For dm 15 units 08/27 Inactiv e 2023 82788 21201 9 1 time Subcut aneous False Linezolid 600 mg tablet [generic] 600 mg By Mouth Every 12 hours For MRSA INFECTION L BKA 600 mg 09/06 Inactiv e 2023 33767 35143 1 Every 12 hours By Mouth False Cefpodoxime 200 mg tablet [generic] 400 mg By Mouth Twice daily For MRSA INFECTION L BKA 400 mg 08/31 Inactiv e 2023 01646 06261 0 Twice daily By Mouth False Senna 8.6 mg tablet 8.6 mg By Mouth Once daily For Constipation 8.6 mg 09/07 Inactiv e 2023 92419 07403 1 Once daily By Mouth False Humalog [...] abnormalities . Per Carb 2023 Active 2023 94905 28970 9 4 times a day Subcut aneous False Alendronate 35 mg tablet [generic] 08/31 Inactiv e 2023 06417 73454 5 Alendronate 35 mg tablet [generic] 35mg By Mouth Every week For Osteoporosis 35mg 202300 /0000 Active 2023 39921 50746 5 Every week By Mouth False ProSource 10 gram-100 kcal/30 mL oral liquid 30 ml By Mouth Once daily For wound healing 30 ml 2023 Active 2023 72349 17873 2 Once daily By Mouth False Clotrimazol e 1 % topical cream [generic] 1 applicaiton Topical Twice daily For tinea, apply to groin rash after cleansing and throughouly drying. Can discontinue order 3 days after rash resolves. 1 applica stacy 09/08 Inactiv e 2023 20436 72717 0 Twice daily Topica l False MAGIC MIX 1:1:1:1 : ZINC OXIDE EXTERNAL OINTMENT 40%; HYDROCOTISO NE EXTERNAL CREAM 1%; NYSTATIN EXTERNAL CREAM 166769U/GM; SILVADENE CREAM 1% Every shift Apply topically to MASD area on coccyx/buttoc ks each shift and as needed for incontinence care For MASD on coccyx layer 2023 Active 2023 Every shift Topica l False Problems Code Description Start Date End Date Status D64.9 Anemia, unspecified 08/25/2024 Activ e I25.10 Atherosclerotic hear t disease of [place] coronary artery without angina pectoris 08/25/2024 Active [...] weight Temperature SpO2 Blood Sugar Pulse Respirations 66207 8 67.00 mm[Hg] - Sitting 145.00 mm[Hg] - Sitting 98.50 Forehead Scan 96.00 % 81.00/ min 16.00/min 004 03279 2 67.00 mm[Hg] - Sitting 145.00 mm[Hg] - Sitting 98.50 Tympanic 81.00/ min 16.00/min 004 42623 5 56.00 mm[Hg] - Sitting 142.00 mm[Hg] - Sitting 136.40 NI 100.20 Tympanic 96.00 % 92.00/ min 18.00/min 91 6 004 27783 4 143.00 mg/dL 67883 0 97.80 Tympanic 005 30647 7 60.00 mm[Hg] - Sitting 140.00 mm[Hg] - Sitting 98.00 Tympanic 84.00/ min 18.00/min 81889 005 12721 0 63.00 mm[Hg] - Sitting 141.00 mm[Hg] - Sitting 98.20 Tympanic 92.00 % 63.00/ min 16.00/min 00490 005 15857 8 69.00 mm[Hg] - Sitting 106.00 mm[Hg] - Sitting 97.20 Tympanic 005 33555 7 69.00/ min 16.00/min 89527 005 91334 3 69.00 mm[Hg] - Sitting 106.00 mm[Hg] - Sitting 98.20 Tympanic 69.00/ min 16.00/min 40615 005 80730 1 367.00 mg/dL 65780 005 89476 2 97.20 Tympanic 14857 005 08912 4 97.20 Tympanic 34122 005 07936 0 69.00 mm[Hg] - Sitting 106.00 mm[Hg] - Sitting 69.00/ min 44444 005 49150 3 452.00 mg/dL 35449 005 95152 3 452.00 mg/dL 72830 005 28285 5 352.00 mg/dL 98022 005 84639 3 352.00 mg/dL 26228 005 70999 7 98.20 Tympanic 75212 005 3 101.00 mg/dL 26747 005 89731 8 101.00 mg/dL 96533 006 01827 4 66.00 mm[Hg] - Sitting 107.00 mm[Hg] - Sitting 98.00 Tympanic 66.00/ min 18.00/min 72244 006 81675 0 62.00 mm[Hg] - Sitting 162.00 mm[Hg] - Sitting 98.20 Tympanic 96.00 % 60.00/ min 16.00/min 22932 006 61672 4 62.00 mm[Hg] - Sitting 162.00 mm[Hg] - Sitting 98.00 Tympanic 70.00/ min 18.00/min 39885 006 15718 8 62.00 mm[Hg] - Sitting 162.00 mm[Hg] - Sitting 98.20 Tympanic 70.00/ min 18.00/min 73557 006 96559 2 66.00 mm[Hg] - Sitting 132.00 mm[Hg] - Sitting 98.60 Tympanic 74.00/ min 16.00/min 69882 006 76777 5 159.00 mg/dL 48017 006 13310 1 159.00 mg/dL Immunizations Vaccine Date Status COVID-19 09/20/2023 Completed Influenza 09/14/2024 Completed Other 10/08/2023 Completed Shingles 05/27/2011 Completed Tetanus 04/13/2022 Completed TDaP 04/13/2022 Completed Shingles 2 10/05/2018 Completed
--- OUTSIDE RECORDS SUMMARY | 2024-10-03 11:01 | External Medical Summary | Continuity Of Care Document ---
Author Name Unknown Address [address] [facility] () Care Team Providers Care Print Room Worker Name Role Phone DO Machado Amy Primary Care Provider [phone] Allergies Allergy Reaction Start Date End Date [...] 3 0.1 mL 08/29 Inactiv e 2023 52315 86399 0 1 time Intrad ermal False Tubersol 5 tub. unit/0.1 mL intradermal injection solution [Tuberculin PPD] 0.1mL Intradermal 1 time For PPD 2nd Step Give 2nd Step PPD Day 1 and Read results Day 3 (schedule 7 days after 1st READ) 0.1mL 09/08 Inactiv e 2023 82219 83592 0 1 time Intrad ermal False [facility] - Nurse initials indicate verificatio n that [id number] vaccine was administere d by [facility] [...] order For Diabetes 08/25 Inactiv e 2023 93784 07779 9 4 times a day Subcut aneous False Aspirin 325 mg tablet [generic] 325 By Mouth Twice daily For Anticoagulati on 325 09/25 Active 2023 52908 48057 1 Twice daily By Mouth False Ferrous sulfate 325 mg (65 mg iron) tablet [generic] 325 By Mouth Once daily For anemia 325 2023 Active 2023 81950 63101 5 Once daily By Mouth False Linezolid 600 mg tablet [generic] 600 mg By Mouth Every 12 hours For MRSA INFECTION L BKA 600 mg 08/25 Inactiv e 2023 14371 92232 1 Every 12 hours By Mouth False Cefpodoxime 200 mg tablet [generic] 400 mg By Mouth Twice daily For MRSA INFECTION L BKA 400 mg 08/25 Inactiv e 2023 94115 90113 0 Twice daily By Mouth False Coenzyme Q10 100 mg tablet [generic] 100 mg By Mouth Once daily For SUPP 100 mg 2023 Active 2023 85091 26961 0 Once daily By Mouth False Levothyroxi ne 50 mcg tablet [generic] 50mcg By Mouth Once daily For hypothyroidis m 50mcg 2023 Active 2023 01049 75277 0 Once daily By Mouth False One A Day Men Complete 240 mcg-25 mcg-300 mcg tablet 1 tab By Mouth Once daily For supplement 1 tab 2023 Active 2023 21108 60988 1 Once daily By Mouth False Cholecalcif adalberto (vitamin D3) 50 mcg (2,000 unit) tablet [generic] 1 TAB By Mouth Once daily For SUPP 1 TAB 2023 Active 2023 13827 50084 1 Once daily By Mouth False Cetirizine 10 mg tablet [generic] 1 TAB By Mouth At bedtime For Allergies 1 TAB 2023 Active 2023 21719 82493 0 At bedtime By Mouth False Timolol maleate 0.25 % eye drops [generic] 1 drop Both Eyes Twice daily For glaucoma 1 drop 2023 Active 2023 62641 02458 5 Twice daily Both Eyes False Alendronate 35 mg tablet [generic] 35mg By Mouth Every week For SIADH 35mg 08/31 Inactiv e 2023 43814 63841 5 Every week By Mouth False Lantus Solostar U-100 Insulin 100 unit/mL (3 mL) subcutaneou s pen 18 units Subcutaneous Every morning For DIABETES 18 units 08/25 Inactiv e 2023 78266 74427 0 Every morning Subcut aneous False Lantus Solostar U-100 Insulin 100 unit/mL (3 mL) subcutaneou s pen 18 units Subcutaneous Every morning For DIABETES 18 units 2023 Active 2023 02076 51555 0 Every morning Subcut aneous False Linezolid 600 mg tablet [generic] 600 mg By Mouth Every 12 hours For MRSA INFECTION L BKA 600 mg 08/28 Inactiv e 2023 67985 93730 1 Every 12 hours By Mouth False [...] order For Diabetes 08/31 Inactiv e 2023 71967 11787 9 4 times a day Subcut aneous False Cefpodoxime 200 mg tablet [generic] 400 mg By Mouth Twice daily For MRSA INFECTION L BKA 400 mg 08/28 Inactiv e 2023 30949 55078 0 Twice daily By Mouth False Brimonidine 0.1 % eye drops [generic] 1 drop Both Eyes Twice daily For glaucoma 1 drop 2023 Active 2023 48367 50268 0 Twice daily Both Eyes False Metoprolol succinate ER 50 mg tablet,exte nded release 24 hr [generic] 50 mg By Mouth Once daily HOLD FOR SBP <100, or pulse <60 For HTN 50 mg 2023 Active 2023 07676 98417 1 Once daily By Mouth False Amlodipine 2.5 mg tablet [generic] 2.5 mg By Mouth Once daily For HTN 2.5 mg 2023 Active 2023 44969 03967 5 Once daily By Mouth False Docusate sodium 100 mg capsule [generic] 100mg By Mouth Twice daily as needed For constipation HOLD FOR LOOSE STOOLS 100mg 2023 Active 2023 25596 49211 1 Twice daily as needed By Mouth False Atorvastati n 40 mg tablet [generic] 40mg By Mouth Once daily For HDL 40mg 08/26 Inactiv e 2023 08343 85852 5 Once daily By Mouth False Tylenol 325 mg tablet 2 tabs By Mouth Every 4 hours as needed For Pain DO NOT EXCEED 3000 MG APAP/24 Hours 2 tabs 2023 Active 2023 03445 08961 0 Every 4 hours as needed By Mouth False Tylenol 325 mg tablet 2 tabs By Mouth Every 4 hours as needed For Fever >100 DO NOT EXCEED 3000 MG APAP/24 Hours 2 tabs 2023 Active 2023 63318 56543 0 Every 4 hours as needed By Mouth False Dulcolax (bisacodyl) 10 mg rectal suppository One Suppository per rectum PRN if Milk of Magnisia ineffective. Give on day 5 of no BM 1 sup 2023 Active 2023 59384 55746 1 Daily as needed Rectal False Fleet Enema 19 gram-7 gram/118 mL Administer per rectum PRN one time if dulcolax suppository not effective. Give on day 6 of no BM 1 2023 Active 2023 49216 57054 6 Daily as needed Rectal False Dextrose 50 % in water (D50W) intravenous solution [generic] Dextrose 50% evonne 20-50 ml (slow push) Intravenous if Glucagon not effective after 15 minutes. CALL 911 for ED Evaluation. 50% evonne 2023 Active 2023 32513 90981 9 Intrav enous False Glucagon (HCl) Emergency Kit 1 mg solution for injection Administer Glucagon 1 mg Intramuscular if 15 minutes after GLucose Gel is administered Glucose remains less than 70 1 mg 2023 Active 2023 11312 88791 2 Intram uscula r False Glucose Gel 40 % oral gel [Dextrose] PRN If resident is unable to swallow (with or without symptoms) and Glucose results less than 70 give GLucose 40% Gel 1 tube orally - Recheck Glucose 15 minutes after administratio n. 1 tube 2023 Active 2023 11362 16705 8 By Mouth False Milk of Magnesia 400 mg/5 mL oral suspension [Magnesium hydroxide] PRN 30ml By Mouth Daily as needed for constipation one time daily if no BM, on day 4 of no BM (PRN refer to instructions) For Constipation 30 mL 2023 Active 2023 54697 32587 6 Daily as needed By Mouth False Atorvastati n 40 mg tablet [generic] 08/26 Inactiv e 2023 68918 96141 5 Atorvastati n 40 mg tablet [generic] 40mg By Mouth Once daily For HDL 40mg 2023 Active 2023 81491 28687 5 Once daily By Mouth False Insulin aspart (U-100) 100 unit/mL (3 mL) subcutaneou s pen [generic] 15 units Subcutaneous 1 time For dm 15 units 08/26 Inactiv e 2023 62079 74242 5 1 time Subcut aneous False Humalog KwikPen (U-100) Insulin 100 unit/mL subcutaneou s 15 units Subcutaneous 1 time For dm 15 units 08/27 Inactiv e 2023 08255 22366 9 1 time Subcut aneous False Linezolid 600 mg tablet [generic] 600 mg By Mouth Every 12 hours For MRSA INFECTION L BKA 600 mg 09/06 Inactiv e 2023 53817 89798 1 Every 12 hours By Mouth False Cefpodoxime 200 mg tablet [generic] 400 mg By Mouth Twice daily For MRSA INFECTION L BKA 400 mg 08/31 Inactiv e 2023 47490 25476 0 Twice daily By Mouth False Senna 8.6 mg tablet 8.6 mg By Mouth Once daily For Constipation 8.6 mg 09/07 Inactiv e 2023 67666 85232 1 Once daily By Mouth False Humalog [...] abnormalities . Per Carb 2023 Active 2023 43462 71843 9 4 times a day Subcut aneous False Alendronate 35 mg tablet [generic] 08/31 Inactiv e 2023 74015 21984 5 Alendronate 35 mg tablet [generic] 35mg By Mouth Every week For Osteoporosis 35mg 202300 /0000 Active 2023 35151 60060 5 Every week By Mouth False ProSource 10 gram-100 kcal/30 mL oral liquid 30 ml By Mouth Once daily For wound healing 30 ml 2023 Active 2023 79715 67250 2 Once daily By Mouth False Clotrimazol e 1 % topical cream [generic] 1 applicaiton Topical Twice daily For tinea, apply to groin rash after cleansing and throughouly drying. Can discontinue order 3 days after rash resolves. 1 applica stacy 09/08 Inactiv e 2023 58063 19539 0 Twice daily Topica l False MAGIC MIX 1:1:1:1 : ZINC OXIDE EXTERNAL OINTMENT 40%; HYDROCOTISO NE EXTERNAL CREAM 1%; NYSTATIN EXTERNAL CREAM 077514G/GM; SILVADENE CREAM 1% Every shift Apply topically to MASD area on coccyx/buttoc ks each shift and as needed for incontinence care For MASD on coccyx layer 2023 Active 2023 Every shift Topica l False Senna 8.6 mg tablet 8.6 mg By Mouth Once daily For Constipation 8.6 mg 09/07 Inactiv e 2023 39405 62017 1 Once daily By Mouth False Senna 8.6 mg tablet 8.6 mg By Mouth Once daily As Needed For Constipation 8.6 mg 2023 Active 2023 00046 52234 1 Once daily By Mouth False BD AutoShield Duo Pen Needle 30 gauge x 3/16in 1 pen needle Subcutaneous 4 times a day For DM 1 pen needle 2023 Active 2023 76180 59481 5 4 times a day Subcut aneous False Hydrocortis one 1 % topical ointment [generic] 1 application Topical Twice daily For tinea *mix 1:1 with clotrimazole cream and apply to clean/dry groin rash 1 applica peggy 09/19 Active 2023 45804 19865 6 Twice daily Topica l False Clotrimazol e 1 % topical cream [generic] 1 applicaiton Topical Twice daily For tinea, apply to groin rash after cleansing and throughouly drying. MIX WITH HYDROCORTISON E Can discontinue order 3 days after rash resolves. 1 applica stacy 2023 Active 2023 99096 72872 0 Twice daily Topica l False Humalog KwikPen (U-100) Insulin 100 unit/mL subcutaneou s 08/31 Inactiv e 2023 04107 11541 9 MediHoney HCS 4 1/2in X 4 1/2in bandage Cleanse area with NSS, [facility] hydrocoll[facility] dressing, non adherent dressing, kerlix secure with paper tape daily. For wound stage III 1 2023 Active 2023 06950 38746 1 Once daily Topica l False Problems Code Description Start Date End Date Status D64.9 Anemia, unspecified 08/25/2024 Activ e I25.10 Atherosclerotic hear t disease of [place] coronary artery without angina pectoris 08/25/2024 Active [...] weight Temperature SpO2 Blood Sugar Pulse Respirations 46926 8 67.00 mm[Hg] - Sitting 145.00 mm[Hg] - Sitting 98.50 Forehead Scan 96.00 % 81.00/ min 16.00/min 004 55701 2 67.00 mm[Hg] - Sitting 145.00 mm[Hg] - Sitting 98.50 Tympanic 81.00/ min 16.00/min 004 83300 5 56.00 mm[Hg] - Sitting 142.00 mm[Hg] - Sitting 136.40 NI 100.20 Tympanic 96.00 % 92.00/ min 18.00/min 95867 004 78223 6 99107 004 07407 4 143.00 mg/dL 00721 0 97.80 Tympanic 005 50459 7 60.00 mm[Hg] - Sitting 140.00 mm[Hg] - Sitting 98.00 Tympanic 84.00/ min 18.00/min 72690 005 82609 0 63.00 mm[Hg] - Sitting 141.00 mm[Hg] - Sitting 98.20 Tympanic 92.00 % 63.00/ min 16.00/min 67139 005 58834 8 69.00 mm[Hg] - Sitting 106.00 mm[Hg] - Sitting 97.20 Tympanic 005 03059 7 69.00/ min 16.00/min 90457 005 23287 3 69.00 mm[Hg] - Sitting 106.00 mm[Hg] - Sitting 98.20 Tympanic 69.00/ min 16.00/min 67610 005 81907 1 367.00 mg/dL 66050 005 93290 2 97.20 Tympanic 04988 005 08728 4 97.20 Tympanic 12913 005 12702 0 69.00 mm[Hg] - Sitting 106.00 mm[Hg] - Sitting 69.00/ min 90522 005 64657 3 452.00 mg/dL 97125 005 04698 3 452.00 mg/dL 31634 005 03978 5 352.00 mg/dL 85751 005 17384 3 352.00 mg/dL 27887 005 07005 7 98.20 Tympanic 29841 005 3 101.00 mg/dL 78301 005 8 101.00 mg/dL 31077 006 40714 4 66.00 mm[Hg] - Sitting 107.00 mm[Hg] - Sitting 98.00 Tympanic 66.00/ min 18.00/min 90091 006 81140 0 62.00 mm[Hg] - Sitting 162.00 mm[Hg] - Sitting 98.20 Tympanic 96.00 % 60.00/ min 16.00/min 94734 006 19644 4 62.00 mm[Hg] - Sitting 162.00 mm[Hg] - Sitting 98.00 Tympanic 70.00/ min 18.00/min 32534 006 02797 8 62.00 mm[Hg] - Sitting 162.00 mm[Hg] - Sitting 98.20 Tympanic 70.00/ min 18.00/min 12839 006 51729 2 66.00 mm[Hg] - Sitting 132.00 mm[Hg] - Sitting 98.60 Tympanic 74.00/ min 16.00/min 71471 006 57831 5 159.00 mg/dL 01381 006 73113 1 159.00 mg/dL 39192 006 77389 8 98.00 Tympanic 49124 006 34625 2 62.00 mm[Hg] - Sitting 162.00 mm[Hg] - Sitting 70.00/ min 37418 006 31688 7 264.00 mg/dL 08324 006 39668 7 264.00 mg/dL 12957 006 24658 4 196.00 mg/dL 92132 006 32514 3 98.20 Tympanic 29252 006 57630 6 271.00 mg/dL 50901 007 21526 3 97.20 Tympanic 37664 007 43281 2 63.00 mm[Hg] - Sitting 132.00 mm[Hg] - Sitting 98.50 Tympanic 94.00 % 66.00/ min 16.00/min 36246 007 26947 5 188.00 mg/dL 91764 007 54660 2 188.00 mg/dL 73570 007 44667 2 188.00 mg/dL 92206 007 25679 7 97.20 Tympanic 97502 007 15742 6 97.20 Tympanic 05607 007 65394 5 67.00 mm[Hg] - Sitting 152.00 mm[Hg] - Sitting 68.00/ min 84145 007 51351 0 141.00 mg/dL 69590 007 84529 3 141.00 mg/dL 60595 007 06742 1 366.00 mg/dL 20783 007 56294 7 366.00 mg/dL 09394 007 62243 7 98.00 Tympanic 56529 007 97427 6 324.00 mg/dL 89583 007 83293 3 98.00 Tympanic 05530 007 43153 7 324.00 mg/dL 33412 008 80335 0 98.00 Tympanic 33322 008 85031 2 97.90 Tympanic 43552 008 94993 0 98.20 Tympanic 45521 008 80954 0 73.00 mm[Hg] - Sitting 156.00 mm[Hg] - Sitting 98.60 Tympanic 99.00 % 66.00/ min 20.00/min 35278 008 03704 5 137.00 mg/dL 49434 008 55904 7 137.00 mg/dL 55699 008 91912 2 97.90 Tympanic 46252 008 67458 1 137.00 mg/dL 13228 008 39296 8 97.90 Tympanic 54055 008 43550 5 67.00 mm[Hg] - Sitting 124.00 /min 00948 008 72690 6 212.00 mg/dL 49886 008 42646 6 212.00 mg/dL 18409 008 07219 9 317.00 mg/dL 71859 008 67417 4 317.00 mg/dL 75679 008 54486 8 252.00 mg/dL 64878 008 36516 0 98.70 Tympanic 89494 008 98519 7 252.00 mg/dL 80446 008 18851 3 98.70 Tympanic 08652 009 14582 9 98.70 Tympanic 91412 009 84744 3 98.20 Tympanic 19748 009 86549 5 98.40 Tympanic 34329 009 64674 5 57.00 mm[Hg] - Sitting 129.00 mm[Hg] - Sitting 98.30 Tympanic 97.00 % 65.00/ min 18.00/min 99755 009 40021 1 255.00 mg/dL 36988 009 71755 4 255.00 mg/dL 04293 009 14658 5 98.20 Tympanic 49531 009 83438 0 255.00 mg/dL 39083 009 28399 0 98.20 Tympanic 03408 009 03762 4 63.00 mm[Hg] - Lying Down 102.00 mm[Hg] - Lying Down 58.00/ min 00879 009 11579 0 167.00 mg/dL 79769 009 83916 1 167.00 mg/dL 39249 009 19763 2 164.00 mg/dL 76818 009 93969 1 164.00 mg/dL 02881 009 15136 5 208.00 mg/dL 34511 010 88423 3 98.40 Tympanic 36723 010 63084 5 98.40 Tympanic 05527 010 10788 7 66 [place] [address] 010 23330 4 60.00 mm[Hg] - Sitting 143.00 mm[Hg] - Sitting 98.90 Tympanic 98.00 % 67.00/ min 18.00/min 46602 010 89281 2 214.00 mg/dL 96087 010 89305 0 214.00 mg/dL 48271 010 49885 7 214.00 mg/dL 58336 010 24437 6 64.00 mm[Hg] - Sitting 110.00 mm[Hg] - Sitting 72.00/ min 51939 010 34346 7 98.40 Tympanic 26805 010 82576 1 212.00 mg/dL 08321 010 16829 2 212.00 mg/dL 98885 010 89381 1 115.00 mg/dL 62814 010 74747 0 115.00 mg/dL 66336 010 40971 4 98.50 Tympanic 70938 010 80599 4 150.00 mg/dL 54524 010 03310 0 150.00 mg/dL 18481 011 80818 9 98.60 Tympanic 44348 011 44206 1 67.00 mm[Hg] - Sitting 144.00 mm[Hg] - Sitting 98.20 Tympanic 98.00 % 61.00/ min 18.00/min 85560 011 59936 7 290.00 mg/dL 32625 011 75973 2 290.00 mg/dL 16411 011 18683 2 290.00 mg/dL 37141 011 09589 7 54.00 mm[Hg] - Sitting 136.00 mm[Hg] - Sitting 101.00 /min 24515 011 47433 7 98.60 Tympanic 69638 011 51866 5 240.00 mg/dL 89618 011 99039 1 240.00 mg/dL 81835 011 88633 1 156.00 mg/dL 46807 011 60963 9 156.00 mg/dL 29476 011 61843 0 97.80 Tympanic 10894 011 76920 8 343.00 mg/dL 34430 012 34535 9 97.90 Tympanic 09986 012 03682 2 466.00 mg/dL 90438 012 38392 1 466.00 mg/dL 58332 012 51190 3 466.00 mg/dL 36994 012 85256 8 97.90 Tympanic 53836 012 54391 8 56.00 mm[Hg] - Sitting 96.00 mm[Hg] - Sitting 61.00/ min 62053 012 55614 7 350.00 mg/dL 90042 012 69368 5 350.00 mg/dL 66856 012 59801 6 111.00 mg/dL 71394 012 45328 0 111.00 mg/dL 50852 012 41113 5 98.40 Tympanic 60827 012 66925 6 114.00 mg/dL 00101 013 21593 4 74.00 mm[Hg] - Sitting 112.00 mm[Hg] - Sitting 98.40 Tympanic 70.00/ min 18.00/min 89114 013 73430 8 244.00 mg/dL 55811 013 91408 7 244.00 mg/dL 77511 013 98013 1 244.00 mg/dL 59308 013 17449 1 98.20 Tympanic 14852 013 53794 7 72.00 mm[Hg] - Sitting 119.00 mm[Hg] - Sitting 76.00/ min 96228 013 58318 7 253.00 mg/dL 89756 013 41660 4 253.00 mg/dL 43483 013 09590 9 156.00 mg/dL 80598 013 13079 5 156.00 mg/dL 26153 013 79084 4 97.90 Tympanic 31383 013 43891 5 189.00 mg/dL 58839 014 72952 9 98.10 Tympanic 65003 014 76842 0 61.00 mm[Hg] - Sitting 139.00 mm[Hg] - Sitting 98.20 Forehead Scan 99.00 % 66.00/ min 18.00/min 37811 014 43662 3 169.00 mg/dL 72113 014 40650 3 98.10 Tympanic 49747 014 58472 3 75.00 mm[Hg] - Sitting 121.00 mm[Hg] - Sitting 71.00/ min 32505 014 37259 9 221.00 mg/dL 53341 014 03567 9 62.00 mg/dL 74350 014 68593 5 62.00 mg/dL 83341 014 56676 8 156.00 mg/dL 01372 014 82801 6 98.10 Tympanic 25616 014 82384 7 156.00 mg/dL 97612 015 61219 4 75018 015 14564 7 62.00 mm[Hg] - Sitting 142.00 mm[Hg] - Sitting 98.20 Tympanic 99.00 % 67.00/ min 18.00/min 13026 015 13325 9 120.00 mg/dL 61373 015 31776 7 98.00 Tympanic 43217 015 37932 2 82.00 mm[Hg] - Sitting 119.00 /min 96287 015 11688 9 110.00 mg/dL 80017 015 97167 6 104.00 mg/dL 52694 015 40990 0 100.00 mg/dL 45182 015 65582 2 98.10 Tympanic 91341 015 53073 6 100.00 mg/dL 92496 016 86443 2 67.00 mm[Hg] - Sitting 147.00 mm[Hg] - Sitting 99.00 Tympanic 99.00 % 78.00/ min 20.00/min 68340 016 17096 5 158.00 mg/dL 34040 016 74464 1 158.00 mg/dL 31100 016 18618 2 158.00 mg/dL 32325 016 92022 0 66.00 mm[Hg] - Sitting 121.00 mm[Hg] - Sitting 74.00/ min 31897 016 97202 1 97.00 mg/dL 03228 016 52211 5 97.00 mg/dL 28658 016 72167 4 78.00 mg/dL 12967 016 06073 6 78.00 mg/dL 41359 016 43273 5 248.00 mg/dL 26039 016 39263 8 248.00 mg/dL 76063 017 94231 3 54.00 mm[Hg] - Sitting 142.00 mm[Hg] - Sitting 98.30 Tympanic 99.00 % 76.00/ min 18.00/min 80869 017 24902 4 267.00 mg/dL 84796 017 25199 6 73.00 mm[Hg] - Sitting 109.00 mm[Hg] - Sitting 70.00/ min 49597 017 52351 1 184.00 mg/dL 49709 017 11518 5 184.00 mg/dL 54219 017 80372 9 248.00 mg/dL 32424 017 72787 8 299.00 mg/dL 87617 017 79803 3 299.00 mg/dL 69015 018 38333 7 50.00 mm[Hg] - Sitting 125.00 mm[Hg] - Sitting 98.30 Tympanic 98.00 % 76.00/ min 16.00/min 49719 018 70127 3 168.00 mg/dL 71960 018 05889 0 75.00 mm[Hg] - Sitting 121.00 mm[Hg] - Sitting 70.00/ min 10357 018 44915 7 264.00 mg/dL 47563 018 20648 6 132.00 mg/dL 96048 018 01259 6 154.00 mg/dL 47662 018 08822 6 154.00 mg/dL 11107 019 01300 4 63.00 mm[Hg] - Sitting 147.00 mm[Hg] - Sitting 98.50 Tympanic 99.00 % 69.00/ min 18.00/min 20400 019 78806 9 159.00 mg/dL 85711 019 39223 8 73.00 mm[Hg] - Sitting 110.00 mm[Hg] - Sitting 72.00/ min 51764 019 00791 4 191.00 mg/dL 98549 019 31972 8 70.00 mg/dL 39944 019 48666 4 70.00 mg/dL 25570 019 59238 6 198.00 mg/dL 29362 019 10011 0 198.00 mg/dL 14308 020 85235 2 59.00 mm[Hg] - Sitting 131.00 mm[Hg] - Sitting 98.90 Tympanic 99.00 % 69.00/ min 18.00/min 28232 020 77153 7 299.00 mg/dL 92426 020 24406 0 62.00 mm[Hg] - Sitting 132.00 mm[Hg] - Sitting 68.00/ min 49914 020 32376 3 299.00 mg/dL 92938 020 06408 3 299.00 mg/dL 47372 020 67565 9 220.00 mg/dL 02081 020 17205 1 220.00 mg/dL 71315 020 80684 1 270.00 mg/dL 86235 020 64277 4 270.00 mg/dL 28551 020 59057 9 143.00 mg/dL 62137 020 91611 4 143.00 mg/dL 22944 021 60833 0 59.00 mm[Hg] - Sitting 121.00 mm[Hg] - Sitting 98.40 Forehead Scan 98.00 % 70.00/ min 16.00/min 02329 021 83825 0 140.00 mg/dL 67640 021 45583 0 67.00 mm[Hg] - Sitting 130.00 mm[Hg] - Sitting 68.00/ min 42830 021 62846 8 140.00 mg/dL 74211 021 15790 6 140.00 mg/dL 73881 021 51542 8 156.00 mg/dL 81580 021 63752 1 156.00 mg/dL 24755 021 54353 5 146.00 mg/dL 13524 021 82632 4 146.00 mg/dL 36500 021 13854 5 183.00 mg/dL 78616 021 69606 2 183.00 mg/dL 54924 022 04587 3 28555 022 39003 1 43.00 mm[Hg] - Sitting 113.00 mm[Hg] - Sitting 97.80 Tympanic 97.00 % 64.00/ min 18.00/min 11202 022 65412 6 270.00 mg/dL 24653 022 50255 5 68.00 mm[Hg] - Sitting 122.00 mm[Hg] - Sitting 67.00/ min 67114 022 27907 9 270.00 mg/dL 89311 022 75001 4 270.00 mg/dL 85670 022 38466 4 207.00 mg/dL 87582 022 05667 8 207.00 mg/dL 93203 022 04297 9 217.00 mg/dL 86835 022 05029 2 217.00 mg/dL 09034 022 86626 0 192.00 mg/dL 17793 022 74785 9 192.00 mg/dL 29657 023 59863 8 48.00 mm[Hg] - Sitting 116.00 mm[Hg] - Sitting 98.50 Tympanic 97.00 % 63.00/ min 18.00/min 27182 023 01373 9 68.00 mm[Hg] - Sitting 131.00 mm[Hg] - Sitting 68.00/ min 70326 023 77625 8 235.00 mg/dL 55641 023 18231 4 235.00 mg/dL 76076 023 55197 0 235.00 mg/dL 80031 023 41044 0 199.00 mg/dL 53141 023 69839 7 199.00 mg/dL 40282 023 99161 4 233.00 mg/dL 32299 023 38509 3 233.00 mg/dL 52577 023 83979 6 229.00 mg/dL 03800 023 02386 4 229.00 mg/dL 58003 024 21702 3 58.00 mm[Hg] - Sitting 102.00 mm[Hg] - Sitting 58.00/ min 63226 024 80151 9 156.00 mg/dL 73331 024 67971 4 156.00 mg/dL 72277 024 98198 3 156.00 mg/dL 12332 024 46505 0 343.00 mg/dL 19288 024 05048 6 343.00 mg/dL 47713 024 15756 2 167.00 mg/dL 78427 024 22552 0 167.00 mg/dL 77274 024 56491 8 155.00 mg/dL 71109 024 95301 7 155.00 mg/dL 16081 025 11033 0 51.00 mm[Hg] - Lying Down 109.00 mm[Hg] - Lying Down 98.60 Tympanic 95.00 % 67.00/ min 20.00/min 15753 025 59973 3 235.00 mg/dL 06659 025 29039 1 63.00 mm[Hg] - Sitting 110.00 mm[Hg] - Sitting 75.00/ min 15431 025 90356 9 295.00 mg/dL 62754 025 58967 4 94.00 mg/dL 90981 025 81137 1 132.00 mg/dL 44508 025 79302 2 132.00 mg/dL Immunizations Vaccine Date Status COVID-19 09/20/2023 Completed Influenza 09/14/2024 Completed Other 10/08/2023 Completed Shingles 05/27/2011 Completed Tetanus 04/13/2022 Completed TDaP 04/13/2022 Completed Shingles 2 10/05/2018 Completed
[2024-10-03] MEDS: LIDOCAINE 1%/EPINEPHRINE 1:100,000 50 ML VIAL ONE (11:02)
[2024-10-03] MEDS: BUPIVACAINE 0.5 % 5 MG/1 ML MPF 30ML VIAL ONE (11:02)
--- OUTSIDE RECORDS SUMMARY | 2024-10-03 11:02 | External Medical Summary | Continuity Of Care Document ---
Author Name Unknown Address [address] [facility] () Care Team Providers Care Plant Wrapper Name Role Phone DO Machado Amy Primary Care Provider [phone] Allergies Allergy Reaction Start Date End Date [...] 3 0.1 mL 08/29 Inactiv e 2023 69716 06925 0 1 time Intrad ermal False Tubersol 5 tub. unit/0.1 mL intradermal injection solution [Tuberculin PPD] 0.1mL Intradermal 1 time For PPD 2nd Step Give 2nd Step PPD Day 1 and Read results Day 3 (schedule 7 days after 1st READ) 0.1mL 09/08 Inactiv e 2023 39626 45217 0 1 time Intrad ermal False [facility] - Nurse initials indicate verificatio n that [id number] vaccine was administere d by [facility] Representat scar 1 Intramuscular 1 time ( Indicate vaccine type) For vaccine 1 2023 0000 /0000 Active 2023 1 time Intram uscula r False [...] order For Diabetes 08/25 Inactiv e 2023 78203 80613 9 4 times a day Subcut aneous False Aspirin 325 mg tablet [generic] 325 By Mouth Twice daily For Anticoagulati on 325 09/25 Active 2023 95527 03339 1 Twice daily By Mouth False Ferrous sulfate 325 mg (65 mg iron) tablet [generic] 325 By Mouth Once daily For anemia 325 2023 Active 2023 60220 72301 5 Once daily By Mouth False Linezolid 600 mg tablet [generic] 600 mg By Mouth Every 12 hours For MRSA INFECTION L BKA 600 mg 08/25 Inactiv e 2023 30602 84169 1 Every 12 hours By Mouth False Cefpodoxime 200 mg tablet [generic] 400 mg By Mouth Twice daily For MRSA INFECTION L BKA 400 mg 08/25 Inactiv e 2023 24888 10006 0 Twice daily By Mouth False Coenzyme Q10 100 mg tablet [generic] 100 mg By Mouth Once daily For SUPP 100 mg 2023 Active 2023 09596 50332 0 Once daily By Mouth False Levothyroxi ne 50 mcg tablet [generic] 50mcg By Mouth Once daily For hypothyroidis m 50mcg 2023 Active 2023 17837 29610 0 Once daily By Mouth False One A Day Men Complete 240 mcg-25 mcg-300 mcg tablet 1 tab By Mouth Once daily For supplement 1 tab 2023 Active 2023 93659 83373 1 Once daily By Mouth False Cholecalcif adalberto (vitamin D3) 50 mcg (2,000 unit) tablet [generic] 1 TAB By Mouth Once daily For SUPP 1 TAB 2023 Active 2023 18660 21991 1 Once daily By Mouth False Cetirizine 10 mg tablet [generic] 1 TAB By Mouth At bedtime For Allergies 1 TAB 2023 Active 2023 46035 24035 0 At bedtime By Mouth False Timolol maleate 0.25 % eye drops [generic] 1 drop Both Eyes Twice daily For glaucoma 1 drop 2023 Active 2023 67045 12341 5 Twice daily Both Eyes False Alendronate 35 mg tablet [generic] 35mg By Mouth Every week For SIADH 35mg 08/31 Inactiv e 2023 69512 86289 5 Every week By Mouth False Lantus Solostar U-100 Insulin 100 unit/mL (3 mL) subcutaneou s pen 18 units Subcutaneous Every morning For DIABETES 18 units 08/25 Inactiv e 2023 37793 59335 0 Every morning Subcut aneous False Lantus Solostar U-100 Insulin 100 unit/mL (3 mL) subcutaneou s pen 18 units Subcutaneous Every morning For DIABETES 18 units 2023 Active 2023 66925 83016 0 Every morning Subcut aneous False Linezolid 600 mg tablet [generic] 600 mg By Mouth Every 12 hours For MRSA INFECTION L BKA 600 mg 08/28 Inactiv e 2023 21745 58544 1 Every 12 hours By Mouth False [...] order For Diabetes 08/31 Inactiv e 2023 92830 17438 9 4 times a day Subcut aneous False Cefpodoxime 200 mg tablet [generic] 400 mg By Mouth Twice daily For MRSA INFECTION L BKA 400 mg 08/28 Inactiv e 2023 96118 53562 0 Twice daily By Mouth False Brimonidine 0.1 % eye drops [generic] 1 drop Both Eyes Twice daily For glaucoma 1 drop 2023 Active 2023 75521 03491 0 Twice daily Both Eyes False Metoprolol succinate ER 50 mg tablet,exte nded release 24 hr [generic] 50 mg By Mouth Once daily HOLD FOR SBP <100, or pulse <60 For HTN 50 mg 2023 Active 2023 52081 39252 1 Once daily By Mouth False Amlodipine 2.5 mg tablet [generic] 2.5 mg By Mouth Once daily For HTN 2.5 mg 2023 Active 2023 36717 89704 5 Once daily By Mouth False Docusate sodium 100 mg capsule [generic] 100mg By Mouth Twice daily as needed For constipation HOLD FOR LOOSE STOOLS 100mg 2023 Active 2023 88041 66122 1 Twice daily as needed By Mouth False Atorvastati n 40 mg tablet [generic] 40mg By Mouth Once daily For HDL 40mg 08/26 Inactiv e 2023 05341 17922 5 Once daily By Mouth False Tylenol 325 mg tablet 2 tabs By Mouth Every 4 hours as needed For Pain DO NOT EXCEED 3000 MG APAP/24 Hours 2 tabs 2023 Active 2023 50368 99527 0 Every 4 hours as needed By Mouth False Tylenol 325 mg tablet 2 tabs By Mouth Every 4 hours as needed For Fever >100 DO NOT EXCEED 3000 MG APAP/24 Hours 2 tabs 2023 Active 2023 10426 15738 0 Every 4 hours as needed By Mouth False Dulcolax (bisacodyl) 10 mg rectal suppository One Suppository per rectum PRN if Milk of Magnisia ineffective. Give on day 5 of no BM 1 sup 2023 Active 2023 21927 25089 1 Daily as needed Rectal False Fleet Enema 19 gram-7 gram/118 mL Administer per rectum PRN one time if dulcolax suppository not effective. Give on day 6 of no BM 1 2023 Active 2023 64105 15274 6 Daily as needed Rectal False Dextrose 50 % in water (D50W) intravenous solution [generic] Dextrose 50% evonne 20-50 ml (slow push) Intravenous if Glucagon not effective after 15 minutes. CALL 911 for ED Evaluation. 50% evonne 2023 Active 2023 41159 24641 9 Intrav enous False Glucagon (HCl) Emergency Kit 1 mg solution for injection Administer Glucagon 1 mg Intramuscular if 15 minutes after GLucose Gel is administered Glucose remains less than 70 1 mg 2023 Active 2023 21040 79277 2 Intram uscula r False Glucose Gel 40 % oral gel [Dextrose] PRN If resident is unable to swallow (with or without symptoms) and Glucose results less than 70 give GLucose 40% Gel 1 tube orally - Recheck Glucose 15 minutes after administratio n. 1 tube 2023 Active 2023 81716 97968 8 By Mouth False Milk of Magnesia 400 mg/5 mL oral suspension [Magnesium hydroxide] PRN 30ml By Mouth Daily as needed for constipation one time daily if no BM, on day 4 of no BM (PRN refer to instructions) For Constipation 30 mL 2023 Active 2023 84349 96298 6 Daily as needed By Mouth False Atorvastati n 40 mg tablet [generic] 08/26 Inactiv e 2023 37184 53792 5 Atorvastati n 40 mg tablet [generic] 40mg By Mouth Once daily For HDL 40mg 2023 Active 2023 66180 65775 5 Once daily By Mouth False Insulin aspart (U-100) 100 unit/mL (3 mL) subcutaneou s pen [generic] 15 units Subcutaneous 1 time For dm 15 units 08/26 Inactiv e 2023 88343 70553 5 1 time Subcut aneous False Humalog KwikPen (U-100) Insulin 100 unit/mL subcutaneou s 15 units Subcutaneous 1 time For dm 15 units 08/27 Inactiv e 2023 49459 26669 9 1 time Subcut aneous False Linezolid 600 mg tablet [generic] 600 mg By Mouth Every 12 hours For MRSA INFECTION L BKA 600 mg 09/06 Inactiv e 2023 61045 51743 1 Every 12 hours By Mouth False Cefpodoxime 200 mg tablet [generic] 400 mg By Mouth Twice daily For MRSA INFECTION L BKA 400 mg 08/31 Inactiv e 2023 45881 11281 0 Twice daily By Mouth False Senna 8.6 mg tablet 8.6 mg By Mouth Once daily For Constipation 8.6 mg 09/07 Inactiv e 2023 00781 39575 1 Once daily By Mouth False Humalog [...] be notified of abnormalities . Per Carb 202300 Active 2023 77164 04902 9 4 times a day Subcut aneous False Alendronate 35 mg tablet [generic] 08/31 Inactiv e 2023 73817 76322 5 Alendronate 35 mg tablet [generic] 35mg By Mouth Every week For Osteoporosis 35mg 202300 /0000 Active 2023 96765 26991 5 Every week By Mouth False ProSource 10 gram-100 kcal/30 mL oral liquid 30 ml By Mouth Once daily For wound healing 30 ml 2023 Active 2023 56702 96641 2 Once daily By Mouth False Clotrimazol e 1 % topical cream [generic] 1 applicaiton Topical Twice daily For tinea, apply to groin rash after cleansing and throughouly drying. Can discontinue order 3 days after rash resolves. 1 applica stacy 09/08 Inactiv e 2023 57858 79366 0 Twice daily Topica l False MAGIC MIX 1:1:1:1 : ZINC OXIDE EXTERNAL OINTMENT 40%; HYDROCOTISO NE EXTERNAL CREAM 1%; NYSTATIN EXTERNAL CREAM 158938G/GM; SILVADENE CREAM 1% Every shift Apply topically to MASD area on coccyx/buttoc ks each shift and as needed for incontinence care For MASD on coccyx layer 2023 Active 2023 Every shift Topica l False Senna 8.6 mg tablet 8.6 mg By Mouth Once daily For Constipation 8.6 mg 09/07 Inactiv e 2023 85225 35809 1 Once daily By Mouth False Senna 8.6 mg tablet 8.6 mg By Mouth Once daily As Needed For Constipation 8.6 mg 2023 Active 2023 53361 19354 1 Once daily By Mouth False BD AutoShield Duo Pen Needle 30 gauge x 3/16in 1 pen needle Subcutaneous 4 times a day For DM 1 pen needle 2023 Active 2023 73645 84073 5 4 times a day Subcut aneous False Hydrocortis one 1 % topical ointment [generic] 1 application Topical Twice daily For tinea *mix 1:1 with clotrimazole cream and apply to clean/dry groin rash 1 applica peggy 09/19 Active 2023 46751 35351 6 Twice daily Topica l False Clotrimazol e 1 % topical cream [generic] 1 applicaiton Topical Twice daily For tinea, apply to groin rash after cleansing and throughouly drying. MIX WITH HYDROCORTISON E Can discontinue order 3 days after rash resolves. 1 applica stacy 2023 Active 2023 36578 81373 0 Twice daily Topica l False Humalog KwikPen (U-100) Insulin 100 unit/mL subcutaneou s 08/31 Inactiv e 2023 05374 19826 9 MediHoney HCS 4 1/2in X 4 1/2in bandage Cleanse area with NSS, apply one [facility] hydrocolloid dressing, non adherent dressing, kerlix secure with paper tape daily. For wound stage III 1 2023 Active 2023 60259 51859 1 Once daily Topica l False Problems Code Description Start Date End Date Status D64.9 Anemia, unspecified 08/25/2024 Activ e I25.10 Atherosclerotic hear t disease of [place] coronary artery without angina pectoris 08/25/2024 Active [...] weight Temperature SpO2 Blood Sugar Pulse Respirations 19502 8 67.00 mm[Hg] - Sitting 145.00 mm[Hg] - Sitting 98.50 Forehead Scan 96.00 % 81.00/ min 16.00/min 004 40050 2 67.00 mm[Hg] - Sitting 145.00 mm[Hg] - Sitting 98.50 Tympanic 81.00/ min 16.00/min 82729 004 62203 5 56.00 mm[Hg] - Sitting 142.00 mm[Hg] - Sitting 136.40 NI 100.20 Tympanic 96.00 % 92.00/ min 18.00/min 54199 004 25524 6 52072 004 97457 4 143.00 mg/dL 88111 0 97.80 Tympanic 005 09521 7 60.00 mm[Hg] - Sitting 140.00 mm[Hg] - Sitting 98.00 Tympanic 84.00/ min 18.00/min 04388 005 38347 0 63.00 mm[Hg] - Sitting 141.00 mm[Hg] - Sitting 98.20 Tympanic 92.00 % 63.00/ min 16.00/min 24444 005 82709 8 69.00 mm[Hg] - Sitting 106.00 mm[Hg] - Sitting 97.20 Tympanic 57909 005 44379 7 69.00/ min 16.00/min 82510 005 65718 3 69.00 mm[Hg] - Sitting 106.00 mm[Hg] - Sitting 98.20 Tympanic 69.00/ min 16.00/min 12444 005 11278 1 367.00 mg/dL 18279 005 37627 2 97.20 Tympanic 19962 005 92663 4 97.20 Tympanic 73578 005 56916 0 69.00 mm[Hg] - Sitting 106.00 mm[Hg] - Sitting 69.00/ min 23268 005 54595 3 452.00 mg/dL 56856 005 62533 3 452.00 mg/dL 23995 005 20607 5 352.00 mg/dL 78415 005 91500 3 352.00 mg/dL 75052 005 50314 7 98.20 Tympanic 21278 005 3 101.00 mg/dL 98248 005 8 101.00 mg/dL 19683 006 04786 4 66.00 mm[Hg] - Sitting 107.00 mm[Hg] - Sitting 98.00 Tympanic 66.00/ min 18.00/min 94669 006 98075 0 62.00 mm[Hg] - Sitting 162.00 mm[Hg] - Sitting 98.20 Tympanic 96.00 % 60.00/ min 16.00/min 65102 006 47097 4 62.00 mm[Hg] - Sitting 162.00 mm[Hg] - Sitting 98.00 Tympanic 70.00/ min 18.00/min 39074 006 94385 8 62.00 mm[Hg] - Sitting 162.00 mm[Hg] - Sitting 98.20 Tympanic 70.00/ min 18.00/min 28171 006 03880 2 66.00 mm[Hg] - Sitting 132.00 mm[Hg] - Sitting 98.60 Tympanic 74.00/ min 16.00/min 57450 006 85652 5 159.00 mg/dL 05607 006 33827 1 159.00 mg/dL 46248 006 15460 8 98.00 Tympanic 51488 006 81221 2 62.00 mm[Hg] - Sitting 162.00 mm[Hg] - Sitting 70.00/ min 09955 006 66999 7 264.00 mg/dL 03276 006 43148 7 264.00 mg/dL 32018 006 59034 4 196.00 mg/dL 11089 006 41470 3 98.20 Tympanic 34282 006 79299 6 271.00 mg/dL 10367 007 85726 3 97.20 Tympanic 24951 007 02755 2 63.00 mm[Hg] - Sitting 132.00 mm[Hg] - Sitting 98.50 Tympanic 94.00 % 66.00/ min 16.00/min 88032 007 75165 5 188.00 mg/dL 99065 007 22545 2 188.00 mg/dL 22471 007 37652 2 188.00 mg/dL 86953 007 93038 7 97.20 Tympanic 90241 007 91542 6 97.20 Tympanic 75590 007 69790 5 67.00 mm[Hg] - Sitting 152.00 mm[Hg] - Sitting 68.00/ min 82401 007 59994 0 141.00 mg/dL 62072 007 53286 3 141.00 mg/dL 82813 007 33452 1 366.00 mg/dL 38467 007 70779 7 366.00 mg/dL 58013 007 01971 7 98.00 Tympanic 52123 007 73134 6 324.00 mg/dL 61970 007 28183 3 98.00 Tympanic 73460 007 59994 7 324.00 mg/dL 62918 008 10859 0 98.00 Tympanic 33767 008 46726 2 97.90 Tympanic 26991 008 07648 0 98.20 Tympanic 85372 008 70348 0 73.00 mm[Hg] - Sitting 156.00 mm[Hg] - Sitting 98.60 Tympanic 99.00 % 66.00/ min 20.00/min 41381 008 49549 5 137.00 mg/dL 46165 008 67334 7 137.00 mg/dL 61878 008 93333 2 97.90 Tympanic 65336 008 51677 1 137.00 mg/dL 73916 008 19623 8 97.90 Tympanic 23607 008 35587 5 67.00 mm[Hg] - Sitting 124.00 /min 95421 008 98263 6 212.00 mg/dL 45417 008 44896 6 212.00 mg/dL 05589 008 04578 9 317.00 mg/dL 76871 008 75653 4 317.00 mg/dL 11094 008 10315 8 252.00 mg/dL 66188 008 18304 0 98.70 Tympanic 24742 008 41581 7 252.00 mg/dL 76161 008 08814 3 98.70 Tympanic 06393 009 75190 9 98.70 Tympanic 55146 009 85030 3 98.20 Tympanic 76239 009 49814 5 98.40 Tympanic 89090 009 96470 5 57.00 mm[Hg] - Sitting 129.00 mm[Hg] - Sitting 98.30 Tympanic 97.00 % 65.00/ min 18.00/min 18224 009 85290 1 255.00 mg/dL 84690 009 40476 4 255.00 mg/dL 67757 009 98183 5 98.20 Tympanic 59583 009 22861 0 255.00 mg/dL 38237 009 59325 0 98.20 Tympanic 91211 009 36612 4 63.00 mm[Hg] - Lying Down 102.00 mm[Hg] - Lying Down 58.00/ min 34790 009 94923 0 167.00 mg/dL 72848 009 72805 1 167.00 mg/dL 16880 009 62642 2 164.00 mg/dL 88993 009 86763 1 164.00 mg/dL 32955 009 02462 5 208.00 mg/dL 01067 010 55782 3 98.40 Tympanic 59215 010 57099 5 98.40 Tympanic 53735 010 28636 7 66 [place] [address] 010 33595 4 60.00 mm[Hg] - Sitting 143.00 mm[Hg] - Sitting 98.90 Tympanic 98.00 % 67.00/ min 18.00/min 77182 010 38139 2 214.00 mg/dL 51805 010 11195 0 214.00 mg/dL 96332 010 29389 7 214.00 mg/dL 60719 010 75010 6 64.00 mm[Hg] - Sitting 110.00 mm[Hg] - Sitting 72.00/ min 08668 010 24050 7 98.40 Tympanic 26752 010 27962 1 212.00 mg/dL 06145 010 69254 2 212.00 mg/dL 28960 010 68563 1 115.00 mg/dL 02691 010 16574 0 115.00 mg/dL 35559 010 64555 4 98.50 Tympanic 52933 010 01738 4 150.00 mg/dL 69497 010 23169 0 150.00 mg/dL 93232 011 16294 9 98.60 Tympanic 28304 011 26726 1 67.00 mm[Hg] - Sitting 144.00 mm[Hg] - Sitting 98.20 Tympanic 98.00 % 61.00/ min 18.00/min 03829 011 49682 7 290.00 mg/dL 84572 011 50801 2 290.00 mg/dL 04359 011 77496 2 290.00 mg/dL 60627 011 42841 7 54.00 mm[Hg] - Sitting 136.00 mm[Hg] - Sitting 101.00 /min 85585 011 74179 7 98.60 Tympanic 48381 011 89478 5 240.00 mg/dL 20376 011 77476 1 240.00 mg/dL 31913 011 06896 1 156.00 mg/dL 04077 011 89648 9 156.00 mg/dL 62164 011 36294 0 97.80 Tympanic 82843 011 55379 8 343.00 mg/dL 93926 012 95795 9 97.90 Tympanic 88224 012 13720 2 466.00 mg/dL 06174 012 62567 1 466.00 mg/dL 20547 012 33991 3 466.00 mg/dL 40017 012 16032 8 97.90 Tympanic 48209 012 13669 8 56.00 mm[Hg] - Sitting 96.00 mm[Hg] - Sitting 61.00/ min 07323 012 86925 7 350.00 mg/dL 56041 012 70562 5 350.00 mg/dL 45191 012 16520 6 111.00 mg/dL 39480 012 01124 0 111.00 mg/dL 71271 012 87689 5 98.40 Tympanic 57165 012 05865 6 114.00 mg/dL 44927 013 37670 4 74.00 mm[Hg] - Sitting 112.00 mm[Hg] - Sitting 98.40 Tympanic 70.00/ min 18.00/min 73273 013 64324 8 244.00 mg/dL 43512 013 38277 7 244.00 mg/dL 53041 013 37910 1 244.00 mg/dL 90479 013 95268 1 98.20 Tympanic 83316 013 66140 7 72.00 mm[Hg] - Sitting 119.00 mm[Hg] - Sitting 76.00/ min 20105 013 25489 7 253.00 mg/dL 58714 013 55792 4 253.00 mg/dL 89115 013 37066 9 156.00 mg/dL 31408 013 94384 5 156.00 mg/dL 06298 013 09894 4 97.90 Tympanic 71425 013 70535 5 189.00 mg/dL 83441 014 16308 9 98.10 Tympanic 51394 014 39980 0 61.00 mm[Hg] - Sitting 139.00 mm[Hg] - Sitting 98.20 Forehead Scan 99.00 % 66.00/ min 18.00/min 33595 014 02893 3 169.00 mg/dL 62532 014 25840 3 98.10 Tympanic 78077 014 08900 3 75.00 mm[Hg] - Sitting 121.00 mm[Hg] - Sitting 71.00/ min 77553 014 04168 9 221.00 mg/dL 49985 014 19799 9 62.00 mg/dL 01306 014 25895 5 62.00 mg/dL 98839 014 29709 8 156.00 mg/dL 42363 014 07818 6 98.10 Tympanic 95055 014 33603 7 156.00 mg/dL 87900 015 42098 4 79977 015 99431 7 62.00 mm[Hg] - Sitting 142.00 mm[Hg] - Sitting 98.20 Tympanic 99.00 % 67.00/ min 18.00/min 50566 015 50056 9 120.00 mg/dL 83201 015 62817 7 98.00 Tympanic 36267 015 26311 2 82.00 mm[Hg] - Sitting 119.00 /min 42696 015 77997 9 110.00 mg/dL 87478 015 53255 6 104.00 mg/dL 19866 015 75247 0 100.00 mg/dL 96925 015 09357 2 98.10 Tympanic 68866 015 13922 6 100.00 mg/dL 98374 016 35002 2 67.00 mm[Hg] - Sitting 147.00 mm[Hg] - Sitting 99.00 Tympanic 99.00 % 78.00/ min 20.00/min 98430 016 21589 5 158.00 mg/dL 23649 016 70180 1 158.00 mg/dL 70540 016 64300 2 158.00 mg/dL 46865 016 22414 0 66.00 mm[Hg] - Sitting 121.00 mm[Hg] - Sitting 74.00/ min 85456 016 08457 1 97.00 mg/dL 52695 016 72208 5 97.00 mg/dL 12058 016 15718 4 78.00 mg/dL 55725 016 30135 6 78.00 mg/dL 79495 016 13195 5 248.00 mg/dL 40108 016 30221 8 248.00 mg/dL 54300 017 94523 3 54.00 mm[Hg] - Sitting 142.00 mm[Hg] - Sitting 98.30 Tympanic 99.00 % 76.00/ min 18.00/min 66979 017 89352 4 267.00 mg/dL 73660 017 29464 6 73.00 mm[Hg] - Sitting 109.00 mm[Hg] - Sitting 70.00/ min 16171 017 08898 1 184.00 mg/dL 92705 017 37074 5 184.00 mg/dL 03988 017 53788 9 248.00 mg/dL 23158 017 76577 8 299.00 mg/dL 71944 017 88617 3 299.00 mg/dL 42073 018 31856 7 50.00 mm[Hg] - Sitting 125.00 mm[Hg] - Sitting 98.30 Tympanic 98.00 % 76.00/ min 16.00/min 06810 018 50743 3 168.00 mg/dL 65622 018 40545 0 75.00 mm[Hg] - Sitting 121.00 mm[Hg] - Sitting 70.00/ min 06956 018 03526 7 264.00 mg/dL 28711 018 71081 6 132.00 mg/dL 98941 018 96954 6 154.00 mg/dL 04542 018 96508 6 154.00 mg/dL 24878 019 10750 4 63.00 mm[Hg] - Sitting 147.00 mm[Hg] - Sitting 98.50 Tympanic 99.00 % 69.00/ min 18.00/min 57485 019 65632 9 159.00 mg/dL 25258 019 98526 8 73.00 mm[Hg] - Sitting 110.00 mm[Hg] - Sitting 72.00/ min 85181 019 96598 4 191.00 mg/dL 04103 019 27041 8 70.00 mg/dL 48277 019 93530 4 70.00 mg/dL 15308 019 66480 6 198.00 mg/dL 15753 019 32134 0 198.00 mg/dL 81727 020 67738 2 59.00 mm[Hg] - Sitting 131.00 mm[Hg] - Sitting 98.90 Tympanic 99.00 % 69.00/ min 18.00/min 19586 020 76091 7 299.00 mg/dL 24313 020 75908 0 62.00 mm[Hg] - Sitting 132.00 mm[Hg] - Sitting 68.00/ min 55291 020 80363 3 299.00 mg/dL 80513 020 10864 3 299.00 mg/dL 65525 020 56913 9 220.00 mg/dL 01237 020 31014 1 220.00 mg/dL 16121 020 89948 1 270.00 mg/dL 29229 020 88381 4 270.00 mg/dL 59622 020 21347 9 143.00 mg/dL 40062 020 58017 4 143.00 mg/dL 95212 021 44316 0 59.00 mm[Hg] - Sitting 121.00 mm[Hg] - Sitting 98.40 Forehead Scan 98.00 % 70.00/ min 16.00/min 06237 021 31037 0 140.00 mg/dL 21923 021 04759 0 67.00 mm[Hg] - Sitting 130.00 mm[Hg] - Sitting 68.00/ min 17706 021 93584 8 140.00 mg/dL 65120 021 54205 6 140.00 mg/dL 72049 021 33880 8 156.00 mg/dL 09813 021 79134 1 156.00 mg/dL 68402 021 91452 5 146.00 mg/dL 82867 021 39830 4 146.00 mg/dL 12154 021 83236 5 183.00 mg/dL 87978 021 72795 2 183.00 mg/dL 48289 022 39445 3 62639 022 56980 1 43.00 mm[Hg] - Sitting 113.00 mm[Hg] - Sitting 97.80 Tympanic 97.00 % 64.00/ min 18.00/min 58518 022 58017 6 270.00 mg/dL 25927 022 91662 5 68.00 mm[Hg] - Sitting 122.00 mm[Hg] - Sitting 67.00/ min 39493 022 12413 9 270.00 mg/dL 70251 022 90953 4 270.00 mg/dL 13952 022 59313 4 207.00 mg/dL 16104 022 41552 8 207.00 mg/dL 66224 022 79650 9 217.00 mg/dL 72078 022 98421 2 217.00 mg/dL 60554 022 03035 0 192.00 mg/dL 18400 022 68158 9 192.00 mg/dL 46741 023 21612 8 48.00 mm[Hg] - Sitting 116.00 mm[Hg] - Sitting 98.50 Tympanic 97.00 % 63.00/ min 18.00/min 49557 023 16426 9 68.00 mm[Hg] - Sitting 131.00 mm[Hg] - Sitting 68.00/ min 45688 023 75537 8 235.00 mg/dL 31980 023 01290 4 235.00 mg/dL 69548 023 32287 0 235.00 mg/dL 77665 023 61208 0 199.00 mg/dL 91517 023 95927 7 199.00 mg/dL 17112 023 95783 4 233.00 mg/dL 29146 023 45572 3 233.00 mg/dL 16389 023 14309 6 229.00 mg/dL 74899 023 65957 4 229.00 mg/dL 30525 024 76749 3 58.00 mm[Hg] - Sitting 102.00 mm[Hg] - Sitting 58.00/ min 98146 024 60022 9 156.00 mg/dL 63236 024 48738 4 156.00 mg/dL 36145 024 32302 3 156.00 mg/dL 32851 024 86419 0 343.00 mg/dL 45925 024 21817 6 343.00 mg/dL 99665 024 33352 2 167.00 mg/dL Immunizations Vaccine Date Status COVID-19 09/20/2023 Completed Other 10/08/2023 Completed Shingles 05/27/2011 Completed Tetanus 04/13/2022 Completed TDaP 04/13/2022 Completed Shingles 2 10/05/2018 Completed
--- OUTSIDE RECORDS SUMMARY | 2024-10-03 11:02 | External Medical Summary | Continuity Of Care Document ---
Author Name Unknown Address [address] [address] Organization [facility] () Care Team Providers Care Rocket Engine Tester Name Role Phone DO Machado Amy Primary Care Provider [phone] Allergies Allergy Reaction Start Date End Date [...] 3 0.1 mL 08/29 Inactiv e 2023 16149 94415 0 1 time Intrad ermal False Tubersol 5 tub. unit/0.1 mL intradermal injection solution [Tuberculin PPD] 0.1mL Intradermal 1 time For PPD 2nd Step Give 2nd Step PPD Day 1 and Read results Day 3 (schedule 7 days after 1st READ) 0.1mL 09/08 Inactiv e 2023 69935 18233 0 1 time Intrad ermal False [facility] - Nurse initials indicate verificatio n that 2410-1295 vaccine was administere d by [facility] [...] order For Diabetes 08/25 Inactiv e 2023 81709 60906 9 4 times a day Subcut aneous False Aspirin 325 mg tablet [generic] 325 By Mouth Twice daily For Anticoagulati on 325 09/25 Active 2023 88650 85183 1 Twice daily By Mouth False Ferrous sulfate 325 mg (65 mg iron) tablet [generic] 325 By Mouth Once daily For anemia 325 2023 Active 2023 01997 39599 5 Once daily By Mouth False Linezolid 600 mg tablet [generic] 600 mg By Mouth Every 12 hours For MRSA INFECTION L BKA 600 mg 08/25 Inactiv e 2023 84024 69340 1 Every 12 hours By Mouth False Cefpodoxime 200 mg tablet [generic] 400 mg By Mouth Twice daily For MRSA INFECTION L BKA 400 mg 08/25 Inactiv e 2023 91608 91821 0 Twice daily By Mouth False Coenzyme Q10 100 mg tablet [generic] 100 mg By Mouth Once daily For SUPP 100 mg 2023 Active 2023 11496 63129 0 Once daily By Mouth False Levothyroxi ne 50 mcg tablet [generic] 50mcg By Mouth Once daily For hypothyroidis m 50mcg 2023 Active 2023 01183 13355 0 Once daily By Mouth False One A Day Men Complete 240 mcg-25 mcg-300 mcg tablet 1 tab By Mouth Once daily For supplement 1 tab 2023 Active 2023 61380 65451 1 Once daily By Mouth False Cholecalcif adalberto (vitamin D3) 50 mcg (2,000 unit) tablet [generic] 1 TAB By Mouth Once daily For SUPP 1 TAB 2023 Active 2023 58257 25090 1 Once daily By Mouth False Cetirizine 10 mg tablet [generic] 1 TAB By Mouth At bedtime For Allergies 1 TAB 2023 Active 2023 45754 34981 0 At bedtime By Mouth False Timolol maleate 0.25 % eye drops [generic] 1 drop Both Eyes Twice daily For glaucoma 1 drop 2023 Active 2023 51418 01647 5 Twice daily Both Eyes False Alendronate 35 mg tablet [generic] 35mg By Mouth Every week For SIADH 35mg 08/31 Inactiv e 2023 00251 86098 5 Every week By Mouth False Lantus Solostar U-100 Insulin 100 unit/mL (3 mL) subcutaneou s pen 18 units Subcutaneous Every morning For DIABETES 18 units 08/25 Inactiv e 2023 05795 61791 0 Every morning Subcut aneous False Lantus Solostar U-100 Insulin 100 unit/mL (3 mL) subcutaneou s pen 18 units Subcutaneous Every morning For DIABETES 18 units 2023 Active 2023 51942 50714 0 Every morning Subcut aneous False Linezolid 600 mg tablet [generic] 600 mg By Mouth Every 12 hours For MRSA INFECTION L BKA 600 mg 08/28 Inactiv e 2023 54642 77062 1 Every 12 hours By Mouth False [...] order For Diabetes 08/31 Inactiv e 2023 69173 13146 9 4 times a day Subcut aneous False Cefpodoxime 200 mg tablet [generic] 400 mg By Mouth Twice daily For MRSA INFECTION L BKA 400 mg 08/28 Inactiv e 2023 80288 86622 0 Twice daily By Mouth False Brimonidine 0.1 % eye drops [generic] 1 drop Both Eyes Twice daily For glaucoma 1 drop 2023 Active 2023 89267 43319 0 Twice daily Both Eyes False Metoprolol succinate ER 50 mg tablet,exte nded release 24 hr [generic] 50 mg By Mouth Once daily HOLD FOR SBP <100, or pulse <60 For HTN 50 mg 2023 Active 2023 56350 24688 1 Once daily By Mouth False Amlodipine 2.5 mg tablet [generic] 2.5 mg By Mouth Once daily For HTN 2.5 mg 2023 Active 2023 03665 17377 5 Once daily By Mouth False Docusate sodium 100 mg capsule [generic] 100mg By Mouth Twice daily as needed For constipation HOLD FOR LOOSE STOOLS 100mg 2023 Active 2023 67590 23629 1 Twice daily as needed By Mouth False Atorvastati n 40 mg tablet [generic] 40mg By Mouth Once daily For HDL 40mg 08/26 Inactiv e 2023 53281 93091 5 Once daily By Mouth False Tylenol 325 mg tablet 2 tabs By Mouth Every 4 hours as needed For Pain DO NOT EXCEED 3000 MG APAP/24 Hours 2 tabs 2023 Active 2023 57237 00611 0 Every 4 hours as needed By Mouth False Tylenol 325 mg tablet 2 tabs By Mouth Every 4 hours as needed For Fever >100 DO NOT EXCEED 3000 MG APAP/24 Hours 2 tabs 2023 Active 2023 72741 68128 0 Every 4 hours as needed By Mouth False Dulcolax (bisacodyl) 10 mg rectal suppository One Suppository per rectum PRN if Milk of Magnisia ineffective. Give on day 5 of no BM 1 sup 2023 Active 2023 44036 51677 1 Daily as needed Rectal False Fleet Enema 19 gram-7 gram/118 mL Administer per rectum PRN one time if dulcolax suppository not effective. Give on day 6 of no BM 1 2023 Active 2023 28323 72625 6 Daily as needed Rectal False Dextrose 50 % in water (D50W) intravenous solution [generic] Dextrose 50% evonne 20-50 ml (slow push) Intravenous if Glucagon not effective after 15 minutes. CALL 911 for ED Evaluation. 50% evonne 2023 Active 2023 10201 57351 9 Intrav enous False Glucagon (HCl) Emergency Kit 1 mg solution for injection Administer Glucagon 1 mg Intramuscular if 15 minutes after GLucose Gel is administered Glucose remains less than 70 1 mg 2023 Active 2023 84331 96475 2 Intram uscula r False Glucose Gel 40 % oral gel [Dextrose] PRN If resident is unable to swallow (with or without symptoms) and Glucose results less than 70 give GLucose 40% Gel 1 tube orally - Recheck Glucose 15 minutes after administratio n. 1 tube 2023 Active 2023 95652 15462 8 By Mouth False Milk of Magnesia 400 mg/5 mL oral suspension [Magnesium hydroxide] PRN 30ml By Mouth Daily as needed for constipation one time daily if no BM, on day 4 of no BM (PRN refer to instructions) For Constipation 30 mL 2023 Active 2023 51465 53118 6 Daily as needed By Mouth False Atorvastati n 40 mg tablet [generic] 08/26 Inactiv e 2023 73665 80643 5 Atorvastati n 40 mg tablet [generic] 40mg By Mouth Once daily For HDL 40mg 2023 Active 2023 72107 48141 5 Once daily By Mouth False Insulin aspart (U-100) 100 unit/mL (3 mL) subcutaneou s pen [generic] 15 units Subcutaneous 1 time For dm 15 units 08/26 Inactiv e 2023 43575 98162 5 1 time Subcut aneous False Humalog KwikPen (U-100) Insulin 100 unit/mL subcutaneou s 15 units Subcutaneous 1 time For dm 15 units 08/27 Inactiv e 2023 29669 83582 9 1 time Subcut aneous False Linezolid 600 mg tablet [generic] 600 mg By Mouth Every 12 hours For MRSA INFECTION L BKA 600 mg 09/06 Inactiv e 2023 89723 71114 1 Every 12 hours By Mouth False Cefpodoxime 200 mg tablet [generic] 400 mg By Mouth Twice daily For MRSA INFECTION L BKA 400 mg 08/31 Inactiv e 2023 84433 52378 0 Twice daily By Mouth False Senna 8.6 mg tablet 8.6 mg By Mouth Once daily For Constipation 8.6 mg 09/07 Inactiv e 2023 42241 85073 1 Once daily By Mouth False Humalog [...] abnormalities . Per Carb 202300 Active 2023 67030 68326 9 4 times a day Subcut aneous False Alendronate 35 mg tablet [generic] 08/31 Inactiv e 2023 36669 69680 5 Alendronate 35 mg tablet [generic] 35mg By Mouth Every week For Osteoporosis 35mg 202300 /0000 Active 2023 47817 26465 5 Every week By Mouth False ProSource 10 gram-100 kcal/30 mL oral liquid 30 ml By Mouth Once daily For wound healing 30 ml 2023 Active 2023 06852 92322 2 Once daily By Mouth False Clotrimazol e 1 % topical cream [generic] 1 applicaiton Topical Twice daily For tinea, apply to groin rash after cleansing and throughouly drying. Can discontinue order 3 days after rash resolves. 1 applica stacy 09/08 Inactiv e 2023 86500 86063 0 Twice daily Topica l False MAGIC MIX 1:1:1:1 : ZINC OXIDE EXTERNAL OINTMENT 40%; HYDROCOTISO NE EXTERNAL CREAM 1%; NYSTATIN EXTERNAL CREAM 570524A/GM; SILVADENE CREAM 1% Every shift Apply topically to MASD area on coccyx/buttoc ks each shift and as needed for incontinence care For MASD on coccyx layer 2023 Active 2023 Every shift Topica l False Senna 8.6 mg tablet 8.6 mg By Mouth Once daily For Constipation 8.6 mg 09/07 Inactiv e 2023 13827 05964 1 Once daily By Mouth False Senna 8.6 mg tablet 8.6 mg By Mouth Once daily As Needed For Constipation 8.6 mg 2023 Active 2023 07281 38301 1 Once daily By Mouth False BD AutoShield Duo Pen Needle 30 gauge x 3/16in 1 pen needle Subcutaneous 4 times a day For DM 1 pen needle 2023 Active 2023 15219 96897 5 4 times a day Subcut aneous False Hydrocortis one 1 % topical ointment [generic] 1 application Topical Twice daily For tinea *mix 1:1 with clotrimazole cream and apply to clean/dry groin rash 1 applica peggy 09/19 Active 2023 29167 48399 6 Twice daily Topica l False Clotrimazol e 1 % topical cream [generic] 1 applicaiton Topical Twice daily For tinea, apply to groin rash after cleansing and throughouly drying. MIX WITH HYDROCORTISON E Can discontinue order 3 days after rash resolves. 1 applica stacy 2023 Active 2023 46759 82164 0 Twice daily Topica l False Humalog KwikPen (U-100) Insulin 100 unit/mL subcutaneou s 08/31 Inactiv e 2023 25924 65489 9 MediHoney HCS 4 1/2in X 4 1/2in bandage Cleanse area with NSS, apply one [facility] hydrocolloid dressing, non adherent dressing, kerlix secure with paper tape daily. 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 08/25/2024 Active [...] weight Temperature SpO2 Blood Sugar Pulse Respirations 89483 8 67.00 mm[Hg] - Sitting 145.00 mm[Hg] - Sitting 98.50 Forehead Scan 96.00 % 81.00/ min 16.00/min 004 11446 2 67.00 mm[Hg] - Sitting 145.00 mm[Hg] - Sitting 98.50 Tympanic 81.00/ min 16.00/min 13171 004 42388 5 56.00 mm[Hg] - Sitting 142.00 mm[Hg] - Sitting 136.40 NI 100.20 Tympanic 96.00 % 92.00/ min 18.00/min 39101 004 11478 6 00919 004 29347 4 143.00 mg/dL 36785 0 97.80 Tympanic 005 00499 7 60.00 mm[Hg] - Sitting 140.00 mm[Hg] - Sitting 98.00 Tympanic 84.00/ min 18.00/min 73463 005 14304 0 63.00 mm[Hg] - Sitting 141.00 mm[Hg] - Sitting 98.20 Tympanic 92.00 % 63.00/ min 16.00/min 88188 005 51390 8 69.00 mm[Hg] - Sitting 106.00 mm[Hg] - Sitting 97.20 Tympanic 15731 005 54232 7 69.00/ min 16.00/min 36331 005 45364 3 69.00 mm[Hg] - Sitting 106.00 mm[Hg] - Sitting 98.20 Tympanic 69.00/ min 16.00/min 39586 005 10525 1 367.00 mg/dL 97381 005 02015 2 97.20 Tympanic 94498 005 56967 4 97.20 Tympanic 09906 005 53247 0 69.00 mm[Hg] - Sitting 106.00 mm[Hg] - Sitting 69.00/ min 28579 005 36690 3 452.00 mg/dL 26033 005 85240 3 452.00 mg/dL 03275 005 69598 5 352.00 mg/dL 53031 005 00592 3 352.00 mg/dL 49267 005 49861 7 98.20 Tympanic 61111 005 3 101.00 mg/dL 10499 005 8 101.00 mg/dL 90954 006 89341 4 66.00 mm[Hg] - Sitting 107.00 mm[Hg] - Sitting 98.00 Tympanic 66.00/ min 18.00/min 52140 006 49262 0 62.00 mm[Hg] - Sitting 162.00 mm[Hg] - Sitting 98.20 Tympanic 96.00 % 60.00/ min 16.00/min 50404 006 06652 4 62.00 mm[Hg] - Sitting 162.00 mm[Hg] - Sitting 98.00 Tympanic 70.00/ min 18.00/min 84665 006 82861 8 62.00 mm[Hg] - Sitting 162.00 mm[Hg] - Sitting 98.20 Tympanic 70.00/ min 18.00/min 60746 006 65908 2 66.00 mm[Hg] - Sitting 132.00 mm[Hg] - Sitting 98.60 Tympanic 74.00/ min 16.00/min 17631 006 87415 5 159.00 mg/dL 31948 006 90053 1 159.00 mg/dL 93242 006 86960 8 98.00 Tympanic 95949 006 74132 2 62.00 mm[Hg] - Sitting 162.00 mm[Hg] - Sitting 70.00/ min 54752 006 17238 7 264.00 mg/dL 17692 006 39920 7 264.00 mg/dL 98901 006 89642 4 196.00 mg/dL 33054 006 27064 3 98.20 Tympanic 81480 006 63103 6 271.00 mg/dL 45532 007 55289 3 97.20 Tympanic 51797 007 24981 2 63.00 mm[Hg] - Sitting 132.00 mm[Hg] - Sitting 98.50 Tympanic 94.00 % 66.00/ min 16.00/min 44139 007 36818 5 188.00 mg/dL 18611 007 05961 2 188.00 mg/dL 86889 007 32668 2 188.00 mg/dL 14226 007 57150 7 97.20 Tympanic 19467 007 36639 6 97.20 Tympanic 08815 007 40631 5 67.00 mm[Hg] - Sitting 152.00 mm[Hg] - Sitting 68.00/ min 49420 007 10461 0 141.00 mg/dL 48722 007 75945 3 141.00 mg/dL 37617 007 29659 1 366.00 mg/dL 20016 007 54255 7 366.00 mg/dL 16671 007 02724 7 98.00 Tympanic 12000 007 72014 6 324.00 mg/dL 13101 007 00093 3 98.00 Tympanic 35493 007 44381 7 324.00 mg/dL 16436 008 67099 0 98.00 Tympanic 85963 008 59710 2 97.90 Tympanic 53652 008 01541 0 98.20 Tympanic 36992 008 15526 0 73.00 mm[Hg] - Sitting 156.00 mm[Hg] - Sitting 98.60 Tympanic 99.00 % 66.00/ min 20.00/min 35957 008 30523 5 137.00 mg/dL 19833 008 31542 7 137.00 mg/dL 36928 008 27561 2 97.90 Tympanic 34187 008 89279 1 137.00 mg/dL 98637 008 06953 8 97.90 Tympanic 67785 008 36788 5 67.00 mm[Hg] - Sitting 124.00 /min 10044 008 08716 6 212.00 mg/dL 08786 008 37650 6 212.00 mg/dL 29533 008 71522 9 317.00 mg/dL 73539 008 63607 4 317.00 mg/dL 86241 008 41245 8 252.00 mg/dL 40031 008 53418 0 98.70 Tympanic 15768 008 69205 7 252.00 mg/dL 08409 008 43598 3 98.70 Tympanic 54084 009 08622 9 98.70 Tympanic 41919 009 41563 3 98.20 Tympanic 39741 009 50498 5 98.40 Tympanic 95023 009 86822 5 57.00 mm[Hg] - Sitting 129.00 mm[Hg] - Sitting 98.30 Tympanic 97.00 % 65.00/ min 18.00/min 15006 009 79374 1 255.00 mg/dL 70866 009 89750 4 255.00 mg/dL 42412 009 01150 5 98.20 Tympanic 43637 009 16009 0 255.00 mg/dL 34024 009 83915 0 98.20 Tympanic 51620 009 48327 4 63.00 mm[Hg] - Lying Down 102.00 mm[Hg] - Lying Down 58.00/ min 63092 009 45933 0 167.00 mg/dL 86612 009 01165 1 167.00 mg/dL 75946 009 01606 2 164.00 mg/dL 72685 009 64766 1 164.00 mg/dL 50115 009 87051 5 208.00 mg/dL 37595 010 60794 3 98.40 Tympanic 34712 010 40561 5 98.40 Tympanic 54160 010 23035 7 66 [place] [address] 010 33052 4 60.00 mm[Hg] - Sitting 143.00 mm[Hg] - Sitting 98.90 Tympanic 98.00 % 67.00/ min 18.00/min 72021 010 95133 2 214.00 mg/dL 29867 010 87561 0 214.00 mg/dL 68661 010 53681 7 214.00 mg/dL 55833 010 20456 6 64.00 mm[Hg] - Sitting 110.00 mm[Hg] - Sitting 72.00/ min 66674 010 28226 7 98.40 Tympanic 63716 010 56130 1 212.00 mg/dL 37751 010 18174 2 212.00 mg/dL 34508 010 00370 1 115.00 mg/dL 73103 010 58774 0 115.00 mg/dL 37639 010 88057 4 98.50 Tympanic 60772 010 15944 4 150.00 mg/dL 23274 010 74361 0 150.00 mg/dL 91014 011 61043 9 98.60 Tympanic 27901 011 78977 1 67.00 mm[Hg] - Sitting 144.00 mm[Hg] - Sitting 98.20 Tympanic 98.00 % 61.00/ min 18.00/min 71506 011 83544 7 290.00 mg/dL 85739 011 24980 2 290.00 mg/dL 53905 011 40288 2 290.00 mg/dL 89978 011 81008 7 54.00 mm[Hg] - Sitting 136.00 mm[Hg] - Sitting 101.00 /min 61359 011 33302 7 98.60 Tympanic 49077 011 53808 5 240.00 mg/dL 92078 011 49235 1 240.00 mg/dL 03135 011 58978 1 156.00 mg/dL 54878 011 26063 9 156.00 mg/dL 54271 011 98276 0 97.80 Tympanic 31306 011 16460 8 343.00 mg/dL 40056 012 65871 9 97.90 Tympanic 06125 012 45626 2 466.00 mg/dL 51108 012 52576 1 466.00 mg/dL 80510 012 96743 3 466.00 mg/dL 37148 012 49353 8 97.90 Tympanic 08839 012 06339 8 56.00 mm[Hg] - Sitting 96.00 mm[Hg] - Sitting 61.00/ min 90413 012 89073 7 350.00 mg/dL 64690 012 87882 5 350.00 mg/dL 12985 012 31752 6 111.00 mg/dL 03312 012 83770 0 111.00 mg/dL 87514 012 00710 5 98.40 Tympanic 94135 012 81661 6 114.00 mg/dL 13264 013 38787 4 74.00 mm[Hg] - Sitting 112.00 mm[Hg] - Sitting 98.40 Tympanic 70.00/ min 18.00/min 71140 013 72933 8 244.00 mg/dL 50794 013 33213 7 244.00 mg/dL 65669 013 36591 1 244.00 mg/dL 79702 013 41322 1 98.20 Tympanic 91657 013 16094 7 72.00 mm[Hg] - Sitting 119.00 mm[Hg] - Sitting 76.00/ min 11870 013 29924 7 253.00 mg/dL 75950 013 08822 4 253.00 mg/dL 08961 013 73068 9 156.00 mg/dL 14420 013 81852 5 156.00 mg/dL 58022 013 61244 4 97.90 Tympanic 27429 013 79054 5 189.00 mg/dL 60015 014 17447 9 98.10 Tympanic 57686 014 27838 0 61.00 mm[Hg] - Sitting 139.00 mm[Hg] - Sitting 98.20 Forehead Scan 99.00 % 66.00/ min 18.00/min 64319 014 55681 3 169.00 mg/dL 26066 014 01388 3 98.10 Tympanic 44824 014 85398 3 75.00 mm[Hg] - Sitting 121.00 mm[Hg] - Sitting 71.00/ min 11932 014 91134 9 221.00 mg/dL 21989 014 96233 9 62.00 mg/dL 45436 014 82373 5 62.00 mg/dL 75357 014 16056 8 156.00 mg/dL 01715 014 40793 6 98.10 Tympanic 14868 014 92696 7 156.00 mg/dL 57800 015 38943 4 45830 015 66152 7 62.00 mm[Hg] - Sitting 142.00 mm[Hg] - Sitting 98.20 Tympanic 99.00 % 67.00/ min 18.00/min 78556 015 70535 9 120.00 mg/dL 33898 015 18451 7 98.00 Tympanic 89468 015 16140 2 82.00 mm[Hg] - Sitting 119.00 /min 84527 015 39712 9 110.00 mg/dL 07024 015 50813 6 104.00 mg/dL 39534 015 17287 0 100.00 mg/dL 90661 015 10581 2 98.10 Tympanic 99671 015 14621 6 100.00 mg/dL 42645 016 29894 2 67.00 mm[Hg] - Sitting 147.00 mm[Hg] - Sitting 99.00 Tympanic 99.00 % 78.00/ min 20.00/min 92174 016 29611 5 158.00 mg/dL 72042 016 92893 1 158.00 mg/dL 39668 016 06847 2 158.00 mg/dL 07356 016 74187 0 66.00 mm[Hg] - Sitting 121.00 mm[Hg] - Sitting 74.00/ min 01195 016 07494 1 97.00 mg/dL 54230 016 37943 5 97.00 mg/dL 90546 016 44720 4 78.00 mg/dL 88921 016 61798 6 78.00 mg/dL 52124 016 56764 5 248.00 mg/dL 99662 016 24485 8 248.00 mg/dL 49056 017 03575 3 54.00 mm[Hg] - Sitting 142.00 mm[Hg] - Sitting 98.30 Tympanic 99.00 % 76.00/ min 18.00/min 64633 017 33398 4 267.00 mg/dL 33862 017 35691 6 73.00 mm[Hg] - Sitting 109.00 mm[Hg] - Sitting 70.00/ min 86014 017 76210 1 184.00 mg/dL 56923 017 97724 5 184.00 mg/dL 97686 017 95268 9 248.00 mg/dL 75274 017 82741 8 299.00 mg/dL 70875 017 81084 3 299.00 mg/dL 15708 018 07698 7 50.00 mm[Hg] - Sitting 125.00 mm[Hg] - Sitting 98.30 Tympanic 98.00 % 76.00/ min 16.00/min 77728 018 53957 3 168.00 mg/dL 96204 018 32805 0 75.00 mm[Hg] - Sitting 121.00 mm[Hg] - Sitting 70.00/ min 54830 018 59543 7 264.00 mg/dL 97246 018 63359 6 132.00 mg/dL 36532 018 62434 6 154.00 mg/dL 52167 018 63714 6 154.00 mg/dL 02453 019 85740 4 63.00 mm[Hg] - Sitting 147.00 mm[Hg] - Sitting 98.50 Tympanic 99.00 % 69.00/ min 18.00/min 77669 019 79735 9 159.00 mg/dL 26018 019 29936 8 73.00 mm[Hg] - Sitting 110.00 mm[Hg] - Sitting 72.00/ min 09771 019 43912 4 191.00 mg/dL 90753 019 16811 8 70.00 mg/dL 51873 019 67167 4 70.00 mg/dL 67776 019 75755 6 198.00 mg/dL 68663 019 69118 0 198.00 mg/dL 76226 020 65950 2 59.00 mm[Hg] - Sitting 131.00 mm[Hg] - Sitting 98.90 Tympanic 99.00 % 69.00/ min 18.00/min 46495 020 94833 7 299.00 mg/dL 43904 020 16736 0 62.00 mm[Hg] - Sitting 132.00 mm[Hg] - Sitting 68.00/ min 83827 020 89062 3 299.00 mg/dL 02929 020 17608 3 299.00 mg/dL 59698 020 39383 9 220.00 mg/dL 31346 020 33106 1 220.00 mg/dL 58994 020 72956 1 270.00 mg/dL 47120 020 93432 4 270.00 mg/dL 88120 020 51676 9 143.00 mg/dL 66378 020 54540 4 143.00 mg/dL 23640 021 28367 0 59.00 mm[Hg] - Sitting 121.00 mm[Hg] - Sitting 98.40 Forehead Scan 98.00 % 70.00/ min 16.00/min 91114 021 35595 0 140.00 mg/dL 22537 021 19634 0 67.00 mm[Hg] - Sitting 130.00 mm[Hg] - Sitting 68.00/ min 64428 021 20033 8 140.00 mg/dL 15446 021 24720 6 140.00 mg/dL 73050 021 13698 8 156.00 mg/dL 67105 021 15687 1 156.00 mg/dL 38453 021 94563 5 146.00 mg/dL 78345 021 25783 4 146.00 mg/dL 81733 021 37221 5 183.00 mg/dL 10595 021 02111 2 183.00 mg/dL 97877 022 49539 3 84457 022 40741 1 43.00 mm[Hg] - Sitting 113.00 mm[Hg] - Sitting 97.80 Tympanic 97.00 % 64.00/ min 18.00/min 59069 022 88458 6 270.00 mg/dL 60841 022 23667 5 68.00 mm[Hg] - Sitting 122.00 mm[Hg] - Sitting 67.00/ min 34838 022 24266 9 270.00 mg/dL 63878 022 25189 4 270.00 mg/dL 58764 022 47266 4 207.00 mg/dL 45039 022 54534 8 207.00 mg/dL 24802 022 91675 9 217.00 mg/dL 76238 022 86990 2 217.00 mg/dL 39096 022 83712 0 192.00 mg/dL 00894 022 07795 9 192.00 mg/dL 88201 023 15501 8 48.00 mm[Hg] - Sitting 116.00 mm[Hg] - Sitting 98.50 Tympanic 97.00 % 63.00/ min 18.00/min 43908 023 15263 9 68.00 mm[Hg] - Sitting 131.00 mm[Hg] - Sitting 68.00/ min 63894 023 07364 8 235.00 mg/dL 00998 023 10609 4 235.00 mg/dL 96368 023 27098 0 235.00 mg/dL 28647 023 08334 0 199.00 mg/dL 28196 023 69572 7 199.00 mg/dL 45459 023 16686 4 233.00 mg/dL 91121 023 06896 3 233.00 mg/dL 72587 023 74411 6 229.00 mg/dL 31375 023 24876 4 229.00 mg/dL 26886 024 41751 3 58.00 mm[Hg] - Sitting 102.00 mm[Hg] - Sitting 58.00/ min 02396 024 46094 9 156.00 mg/dL 39372 024 59724 4 156.00 mg/dL 61220 024 12391 3 156.00 mg/dL 31865 024 11784 0 343.00 mg/dL 53121 024 17207 6 343.00 mg/dL 59840 024 97901 2 167.00 mg/dL 96732 024 20825 0 167.00 mg/dL 10834 024 24030 8 155.00 mg/dL 91119 024 66464 7 155.00 mg/dL 39311 025 08607 0 51.00 mm[Hg] - Lying Down 109.00 mm[Hg] - Lying Down 98.60 Tympanic 95.00 % 67.00/ min 20.00/min 88990 025 49069 3 235.00 mg/dL 61385 025 11804 1 63.00 mm[Hg] - Sitting 110.00 mm[Hg] - Sitting 75.00/ min Immunizations Vaccine Date Status COVID-19 09/20/2023 Completed Influenza 09/14/2024 Completed Other 10/08/2023 Completed Shingles 05/27/2011 Completed Tetanus 04/13/2022 Completed TDaP 04/13/2022 Completed Shingles 2 10/05/2018 Completed
--- OUTSIDE RECORDS SUMMARY | 2024-10-03 11:03 | External Medical Summary | Continuity Of Care Document ---
Author Name Unknown Address [address] [address] Organization [facility] () Care Team Providers Care Compotype Operator Name Role Phone DO Machado Amy Primary Care Provider [phone] Allergies Allergy Reaction Start Date End Date [...] 3 0.1 mL 08/29 Inactiv e 2023 50275 36598 0 1 time Intrad ermal False Tubersol 5 tub. unit/0.1 mL intradermal injection solution [Tuberculin PPD] 0.1mL Intradermal 1 time For PPD 2nd Step Give 2nd Step PPD Day 1 and Read results Day 3 (schedule 7 days after 1st READ) 0.1mL 09/08 Inactiv e 2023 00503 80491 0 1 time Intrad ermal False Humalog KwikPen (U-100) Insulin 100 unit/mL subcutaneou s Subcutaneous AC & HS times a day <70 HOLD - Initiate Hypoglycemic Protocol HOLD 150-199 give 1.0 Units 200-249 give 3.0 Units 250-299 give 5.0 Units 300-349 give 7.0 Units 350-399 give 9.0 Units >450 Call Provider for one- time order >500 Call Provider for one-time order For Diabetes 08/25 Inactiv e 2023 25336 57405 9 4 times a day Subcut aneous False Aspirin 325 mg tablet [generic] 325 By Mouth Twice daily For Anticoagulati on 325 09/25 Active 2023 47109 88427 1 Twice daily By Mouth False Ferrous sulfate 325 mg (65 mg iron) tablet [generic] 325 By Mouth Once daily For anemia 325 2023 Active 2023 84525 55868 5 Once daily By Mouth False Linezolid 600 mg tablet [generic] 600 mg By Mouth Every 12 hours For MRSA INFECTION L BKA 600 mg 08/25 Inactiv e 2023 17048 11342 1 Every 12 hours By Mouth False Cefpodoxime 200 mg tablet [generic] 400 mg By Mouth Twice daily For MRSA INFECTION L BKA 400 mg 08/25 Inactiv e 2023 35094 96532 0 Twice daily By Mouth False Coenzyme Q10 100 mg tablet [generic] 100 mg By Mouth Once daily For SUPP 100 mg 2023 Active 2023 59059 42715 0 Once daily By Mouth False Levothyroxi ne 50 mcg tablet [generic] 50mcg By Mouth Once daily For hypothyroidis m 50mcg 2023 Active 2023 86403 08613 0 Once daily By Mouth False One A Day Men Complete 240 mcg-25 mcg-300 mcg tablet 1 tab By Mouth Once daily For supplement 1 tab 2023 Active 2023 91152 87888 1 Once daily By Mouth False Cholecalcif adalberto (vitamin D3) 50 mcg (2,000 unit) tablet [generic] 1 TAB By Mouth Once daily For SUPP 1 TAB 2023 Active 2023 21948 53442 1 Once daily By Mouth False Cetirizine 10 mg tablet [generic] 1 TAB By Mouth At bedtime For Allergies 1 TAB 2023 Active 2023 21749 63225 0 At bedtime By Mouth False Timolol maleate 0.25 % eye drops [generic] 1 drop Both Eyes Twice daily For glaucoma 1 drop 2023 0000 0000 Active 2023 66194 04755 5 Twice daily Both Eyes False Alendronate 35 mg tablet [generic] 35mg By Mouth Every week For SIADH 35mg 08/31 Inactiv e 2023 48980 94527 5 Every week By Mouth False Lantus Solostar U-100 Insulin 100 unit/mL (3 mL) subcutaneou s pen 18 units Subcutaneous Every morning For DIABETES 18 units 08/25 Inactiv e 2023 04607 65046 0 Every morning Subcut aneous False Lantus Solostar U-100 Insulin 100 unit/mL (3 mL) subcutaneou s pen 18 units Subcutaneous Every morning For DIABETES 18 units 2023 Active 2023 62636 73101 0 Every morning Subcut aneous False Linezolid 600 mg tablet [generic] 600 mg By Mouth Every 12 hours For MRSA INFECTION L BKA 600 mg 08/28 Inactiv e 2023 85349 73702 1 Every 12 hours By Mouth False [...] order For Diabetes 08/31 Inactiv e 2023 09959 07587 9 4 times a day Subcut aneous False Cefpodoxime 200 mg tablet [generic] 400 mg By Mouth Twice daily For MRSA INFECTION L BKA 400 mg 08/28 Inactiv e 2023 90102 11254 0 Twice daily By Mouth False Brimonidine 0.1 % eye drops [generic] 1 drop Both Eyes Twice daily For glaucoma 1 drop 2023 Active 2023 41348 53904 0 Twice daily Both Eyes False Metoprolol succinate ER 50 mg tablet,exte nded release 24 hr [generic] 50 mg By Mouth Once daily HOLD FOR SBP <100, or pulse <60 For HTN 50 mg 2023 Active 2023 94949 22878 1 Once daily By Mouth False Amlodipine 2.5 mg tablet [generic] 2.5 mg By Mouth Once daily For HTN 2.5 mg 2023 Active 2023 81679 32270 5 Once daily By Mouth False Docusate sodium 100 mg capsule [generic] 100mg By Mouth Twice daily as needed For constipation HOLD FOR LOOSE STOOLS 100mg 2023 Active 2023 93568 59972 1 Twice daily as needed By Mouth False Atorvastati n 40 mg tablet [generic] 40mg By Mouth Once daily For HDL 40mg 08/26 Inactiv e 2023 69836 60883 5 Once daily By Mouth False Tylenol 325 mg tablet 2 tabs By Mouth Every 4 hours as needed For Pain DO NOT EXCEED 3000 MG APAP/24 Hours 2 tabs 2023 Active 2023 80427 78934 0 Every 4 hours as needed By Mouth False Tylenol 325 mg tablet 2 tabs By Mouth Every 4 hours as needed For Fever >100 DO NOT EXCEED 3000 MG APAP/24 Hours 2 tabs 2023 Active 2023 44685 14527 0 Every 4 hours as needed By Mouth False Dulcolax (bisacodyl) 10 mg rectal suppository One Suppository per rectum PRN if Milk of Magnisia ineffective. Give on day 5 of no BM 1 sup 2023 Active 2023 00915 34659 1 Daily as needed Rectal False Fleet Enema 19 gram-7 gram/118 mL Administer per rectum PRN one time if dulcolax suppository not effective. Give on day 6 of no BM 1 2023 Active 2023 42282 48232 6 Daily as needed Rectal False Dextrose 50 % in water (D50W) intravenous solution [generic] Dextrose 50% evonne 20-50 ml (slow push) Intravenous if Glucagon not effective after 15 minutes. CALL 911 for ED Evaluation. 50% evonne 2023 Active 2023 32998 53061 9 Intrav enous False Glucagon (HCl) Emergency Kit 1 mg solution for injection Administer Glucagon 1 mg Intramuscular if 15 minutes after GLucose Gel is administered Glucose remains less than 70 1 mg 2023 Active 2023 50806 28707 2 Intram uscula r False Glucose Gel 40 % oral gel [Dextrose] PRN If resident is unable to swallow (with or without symptoms) and Glucose results less than 70 give GLucose 40% Gel 1 tube orally - Recheck Glucose 15 minutes after administratio n. 1 tube 2023 Active 2023 83420 49001 8 By Mouth False Milk of Magnesia 400 mg/5 mL oral suspension [Magnesium hydroxide] PRN 30ml By Mouth Daily as needed for constipation one time daily if no BM, on day 4 of no BM (PRN refer to instructions) For Constipation 30 mL 2023 Active 2023 32649 78624 6 Daily as needed By Mouth False Atorvastati n 40 mg tablet [generic] 08/26 Inactiv e 2023 39702 01122 5 Atorvastati n 40 mg tablet [generic] 40mg By Mouth Once daily For HDL 40mg 2023 Active 2023 80905 57325 5 Once daily By Mouth False Insulin aspart (U-100) 100 unit/mL (3 mL) subcutaneou s pen [generic] 15 units Subcutaneous 1 time For dm 15 units 08/26 Inactiv e 2023 45382 07709 5 1 time Subcut aneous False Humalog KwikPen (U-100) Insulin 100 unit/mL subcutaneou s 15 units Subcutaneous 1 time For dm 15 units 08/27 Inactiv e 2023 27805 66954 9 1 time Subcut aneous False Linezolid 600 mg tablet [generic] 600 mg By Mouth Every 12 hours For MRSA INFECTION L BKA 600 mg 09/06 Inactiv e 2023 27472 93959 1 Every 12 hours By Mouth False Cefpodoxime 200 mg tablet [generic] 400 mg By Mouth Twice daily For MRSA INFECTION L BKA 400 mg 08/31 Inactiv e 2023 49344 64980 0 Twice daily By Mouth False Senna 8.6 mg tablet 8.6 mg By Mouth Once daily For Constipation 8.6 mg 09/07 Inactiv e 2023 14440 04532 1 Once daily By Mouth False Humalog [...] abnormalities . Per Carb 2023 Active 2023 01323 43995 9 4 times a day Subcut aneous False Alendronate 35 mg tablet [generic] 08/31 Inactiv e 2023 45487 24714 5 Alendronate 35 mg tablet [generic] 35mg By Mouth Every week For Osteoporosis 35mg 2023 Active 2023 60284 46126 5 Every week By Mouth False ProSource 10 gram-100 kcal/30 mL oral liquid 30 ml By Mouth Once daily For wound healing 30 ml 2023 Active 2023 48345 58131 2 Once daily By Mouth False Clotrimazol e 1 % topical cream [generic] 1 applicaiton Topical Twice daily For tinea, apply to groin rash after cleansing and throughouly drying. Can discontinue order 3 days after rash resolves. 1 applica stacy 09/08 Inactiv e 2023 49342 13730 0 Twice daily Topica l False MAGIC MIX 1:1:1:1 : ZINC OXIDE EXTERNAL OINTMENT 40%; HYDROCOTISO NE EXTERNAL CREAM 1%; NYSTATIN EXTERNAL CREAM 095835H/GM; SILVADENE CREAM 1% Every shift Apply topically to MASD area on coccyx/buttoc ks each shift and as needed for incontinence care For MASD on coccyx layer 2023 Active 2023 Every shift Topica l False Senna 8.6 mg tablet 8.6 mg By Mouth Once daily For Constipation 8.6 mg 09/07 Inactiv e 2023 98433 09182 1 Once daily By Mouth False Senna 8.6 mg tablet 8.6 mg By Mouth Once daily As Needed For Constipation 8.6 mg 2023 Active 2023 05188 55132 1 Once daily By Mouth False BD AutoShield Duo Pen Needle 30 gauge x 3/16in 1 pen needle Subcutaneous 4 times a day For DM 1 pen needle 2023 Active 2023 83723 48296 5 4 times a day Subcut aneous False Hydrocortis one 1 % topical ointment [generic] 1 application Topical Twice daily For tinea *mix 1:1 with clotrimazole cream and apply to clean/dry groin rash 1 applica peggy 09/19 Active 2023 37481 89112 6 Twice daily Topica l False Clotrimazol e 1 % topical cream [generic] 1 applicaiton Topical Twice daily For tinea, apply to groin rash after cleansing and throughouly drying. MIX WITH HYDROCORTISON E Can discontinue order 3 days after rash resolves. 1 applica stacy 2023 Active 2023 09281 65522 0 Twice daily Topica l False Humalog KwikPen (U-100) Insulin 100 unit/mL subcutaneou s 10/10/ 2024 10/10 /2024 Inactiv e 2023 84795 06533 9 MediHoney HCS 4 1/2in X 4 1/2in bandage Cleanse area with NSS, apply one medihoney hydrocolloid dressing, non adherent dressing, kerlix secure with paper tape daily. 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 08/25/2024 Active [...] weight Temperature SpO2 Blood Sugar Pulse Respirations 91549 8 67.00 mm[Hg] - Sitting 145.00 mm[Hg] - Sitting 98.50 Forehead Scan 96.00 % 81.00/ min 16.00/min 04035 004 71873 2 67.00 mm[Hg] - Sitting 145.00 mm[Hg] - Sitting 98.50 Tympanic 81.00/ min 16.00/min 30271 004 59086 5 56.00 mm[Hg] - Sitting 142.00 mm[Hg] - Sitting 136.40 NI 100.20 Tympanic 96.00 % 92.00/ min 18.00/min 71002 004 79907 6 11869 004 05372 4 143.00 mg/dL 86211 004 84837 0 97.80 Tympanic 28420 005 92505 7 60.00 mm[Hg] - Sitting 140.00 mm[Hg] - Sitting 98.00 Tympanic 84.00/ min 18.00/min 13099 005 39740 0 63.00 mm[Hg] - Sitting 141.00 mm[Hg] - Sitting 98.20 Tympanic 92.00 % 63.00/ min 16.00/min 67289 005 78379 8 69.00 mm[Hg] - Sitting 106.00 mm[Hg] - Sitting 97.20 Tympanic 34619 005 35399 7 69.00/ min 16.00/min 52084 005 77677 3 69.00 mm[Hg] - Sitting 106.00 mm[Hg] - Sitting 98.20 Tympanic 69.00/ min 16.00/min 63288 005 27071 1 367.00 mg/dL 97700 005 24215 2 97.20 Tympanic 12538 005 34040 4 97.20 Tympanic 88324 005 51636 0 69.00 mm[Hg] - Sitting 106.00 mm[Hg] - Sitting 69.00/ min 55968 005 34054 3 452.00 mg/dL 41086 005 21721 3 452.00 mg/dL 25116 005 43309 5 352.00 mg/dL 56612 005 89057 3 352.00 mg/dL 31897 005 81893 7 98.20 Tympanic 97465 005 49272 3 101.00 mg/dL 50746 005 8 101.00 mg/dL 05942 006 36818 4 66.00 mm[Hg] - Sitting 107.00 mm[Hg] - Sitting 98.00 Tympanic 66.00/ min 18.00/min 98119 006 53643 0 62.00 mm[Hg] - Sitting 162.00 mm[Hg] - Sitting 98.20 Tympanic 96.00 % 60.00/ min 16.00/min 70506 006 88827 4 62.00 mm[Hg] - Sitting 162.00 mm[Hg] - Sitting 98.00 Tympanic 70.00/ min 18.00/min 33391 006 54093 8 62.00 mm[Hg] - Sitting 162.00 mm[Hg] - Sitting 98.20 Tympanic 70.00/ min 18.00/min 87965 006 60273 2 66.00 mm[Hg] - Sitting 132.00 mm[Hg] - Sitting 98.60 Tympanic 74.00/ min 16.00/min 20114 006 66046 5 159.00 mg/dL 59470 006 91755 1 159.00 mg/dL 72863 006 39851 8 98.00 Tympanic 84702 006 74940 2 62.00 mm[Hg] - Sitting 162.00 mm[Hg] - Sitting 70.00/ min 93118 006 68972 7 264.00 mg/dL 13186 006 93440 7 264.00 mg/dL 47040 006 69655 4 196.00 mg/dL 76493 006 67044 3 98.20 Tympanic 75898 006 77827 6 271.00 mg/dL 84208 007 25138 3 97.20 Tympanic 62395 007 91821 2 63.00 mm[Hg] - Sitting 132.00 mm[Hg] - Sitting 98.50 Tympanic 94.00 % 66.00/ min 16.00/min 17722 007 46750 5 188.00 mg/dL 61289 007 92757 2 188.00 mg/dL 42508 007 51693 2 188.00 mg/dL 13052 007 37603 7 97.20 Tympanic 25196 007 91080 6 97.20 Tympanic 76680 007 05625 5 67.00 mm[Hg] - Sitting 152.00 mm[Hg] - Sitting 68.00/ min 98989 007 91852 0 141.00 mg/dL 22470 007 01209 3 141.00 mg/dL 29328 007 98935 1 366.00 mg/dL 16652 007 51716 7 366.00 mg/dL 41596 007 77416 7 98.00 Tympanic 58225 007 78015 6 324.00 mg/dL 56298 007 60265 3 98.00 Tympanic 67092 007 49665 7 324.00 mg/dL 78594 008 92670 0 98.00 Tympanic 87307 008 95671 2 97.90 Tympanic 42376 008 53573 0 98.20 Tympanic 14974 008 63601 0 73.00 mm[Hg] - Sitting 156.00 mm[Hg] - Sitting 98.60 Tympanic 99.00 % 66.00/ min 20.00/min 65435 008 09650 5 137.00 mg/dL 81874 008 74800 7 137.00 mg/dL 80662 008 25383 2 97.90 Tympanic 12954 008 75350 1 137.00 mg/dL 45503 008 68541 8 97.90 Tympanic 59362 008 38541 5 67.00 mm[Hg] - Sitting 124.00 /min 47415 008 08697 6 212.00 mg/dL 73415 008 68299 6 212.00 mg/dL 59025 008 66611 9 317.00 mg/dL 09265 008 05442 4 317.00 mg/dL 63140 008 24989 8 252.00 mg/dL 45390 008 32989 0 98.70 Tympanic 21302 008 30090 7 252.00 mg/dL 05094 008 18120 3 98.70 Tympanic 11453 009 79008 9 98.70 Tympanic 17394 009 56503 3 98.20 Tympanic 12848 009 20259 5 98.40 Tympanic 95649 009 37437 5 57.00 mm[Hg] - Sitting 129.00 mm[Hg] - Sitting 98.30 Tympanic 97.00 % 65.00/ min 18.00/min 91464 009 21547 1 255.00 mg/dL 74569 009 79643 4 255.00 mg/dL 54035 009 24330 5 98.20 Tympanic 19270 009 75327 0 255.00 mg/dL 49599 009 52874 0 98.20 Tympanic 24950 009 39283 4 63.00 mm[Hg] - Lying Down 102.00 mm[Hg] - Lying Down 58.00/ min 22269 009 37215 0 167.00 mg/dL 16860 009 89761 1 167.00 mg/dL 28126 009 15671 2 164.00 mg/dL 90810 009 95377 1 164.00 mg/dL 95644 009 75320 5 208.00 mg/dL 47018 010 13292 3 98.40 Tympanic 39804 010 10670 5 98.40 Tympanic 38544 010 60651 7 66 [place] [address] 010 40412 4 60.00 mm[Hg] - Sitting 143.00 mm[Hg] - Sitting 98.90 Tympanic 98.00 % 67.00/ min 18.00/min 02256 010 22971 2 214.00 mg/dL 20428 010 77684 0 214.00 mg/dL 33838 010 72911 7 214.00 mg/dL 43690 010 33754 6 64.00 mm[Hg] - Sitting 110.00 mm[Hg] - Sitting 72.00/ min 55710 010 24142 7 98.40 Tympanic 90527 010 90255 1 212.00 mg/dL 33441 010 87645 2 212.00 mg/dL 25314 010 32352 1 115.00 mg/dL 64893 010 81107 0 115.00 mg/dL 94682 010 62027 4 98.50 Tympanic 48799 010 84108 4 150.00 mg/dL 58057 010 18694 0 150.00 mg/dL 65759 011 73580 9 98.60 Tympanic 08383 011 21065 1 67.00 mm[Hg] - Sitting 144.00 mm[Hg] - Sitting 98.20 Tympanic 98.00 % 61.00/ min 18.00/min 25716 011 83163 7 290.00 mg/dL 70032 011 62501 2 290.00 mg/dL 87851 011 12852 2 290.00 mg/dL 93123 011 22556 7 54.00 mm[Hg] - Sitting 136.00 mm[Hg] - Sitting 101.00 /min 08824 011 29648 7 98.60 Tympanic 17671 011 43419 5 240.00 mg/dL 82413 011 97561 1 240.00 mg/dL 88358 011 88465 1 156.00 mg/dL 10438 011 20118 9 156.00 mg/dL 75414 011 40115 0 97.80 Tympanic 21884 011 85836 8 343.00 mg/dL 50587 012 91110 9 97.90 Tympanic 68944 012 89290 2 466.00 mg/dL 90881 012 17248 1 466.00 mg/dL 35430 012 36204 3 466.00 mg/dL 07096 012 38579 8 97.90 Tympanic 79810 012 18745 8 56.00 mm[Hg] - Sitting 96.00 mm[Hg] - Sitting 61.00/ min 06609 012 62304 7 350.00 mg/dL 31773 012 30759 5 350.00 mg/dL 86306 012 10448 6 111.00 mg/dL 81077 012 31234 0 111.00 mg/dL 32894 012 54845 5 98.40 Tympanic 09568 012 50845 6 114.00 mg/dL 93799 013 19588 4 74.00 mm[Hg] - Sitting 112.00 mm[Hg] - Sitting 98.40 Tympanic 70.00/ min 18.00/min 91532 013 10459 8 244.00 mg/dL 58650 013 37003 7 244.00 mg/dL 22494 013 26774 1 244.00 mg/dL 57961 013 14310 1 98.20 Tympanic 64423 013 14262 7 72.00 mm[Hg] - Sitting 119.00 mm[Hg] - Sitting 76.00/ min 41842 013 76103 7 253.00 mg/dL 30731 013 99465 4 253.00 mg/dL 11986 013 16419 9 156.00 mg/dL 42510 013 56262 5 156.00 mg/dL 32443 013 24602 4 97.90 Tympanic 81661 013 14758 5 189.00 mg/dL 66256 014 38069 9 98.10 Tympanic 67324 014 55724 0 61.00 mm[Hg] - Sitting 139.00 mm[Hg] - Sitting 98.20 Forehead Scan 99.00 % 66.00/ min 18.00/min 23015 014 80768 3 169.00 mg/dL 62187 014 14597 3 98.10 Tympanic 82449 014 56000 3 75.00 mm[Hg] - Sitting 121.00 mm[Hg] - Sitting 71.00/ min 83809 014 58816 9 221.00 mg/dL 01219 014 81837 9 62.00 mg/dL 89637 014 95065 5 62.00 mg/dL 83853 014 97491 8 156.00 mg/dL 74418 014 94950 6 98.10 Tympanic 94002 014 20999 7 156.00 mg/dL 13198 015 51455 4 48243 015 66590 7 62.00 mm[Hg] - Sitting 142.00 mm[Hg] - Sitting 98.20 Tympanic 99.00 % 67.00/ min 18.00/min 45728 015 42468 9 120.00 mg/dL 47388 015 39454 7 98.00 Tympanic 16492 015 20244 2 82.00 mm[Hg] - Sitting 119.00 /min 58906 015 56884 9 110.00 mg/dL 84535 015 93788 6 104.00 mg/dL 06835 015 08481 0 100.00 mg/dL 22775 015 72106 2 98.10 Tympanic 02420 015 47015 6 100.00 mg/dL 32893 016 93380 2 67.00 mm[Hg] - Sitting 147.00 mm[Hg] - Sitting 99.00 Tympanic 99.00 % 78.00/ min 20.00/min 10678 016 71278 5 158.00 mg/dL 40271 016 35746 1 158.00 mg/dL 03169 016 76560 2 158.00 mg/dL 65332 016 96141 0 66.00 mm[Hg] - Sitting 121.00 mm[Hg] - Sitting 74.00/ min 34693 016 58513 1 97.00 mg/dL 57391 016 38758 5 97.00 mg/dL 95852 016 56245 4 78.00 mg/dL 49829 016 70758 6 78.00 mg/dL 22374 016 39224 5 248.00 mg/dL 16064 016 28033 8 248.00 mg/dL 98052 017 57644 3 54.00 mm[Hg] - Sitting 142.00 mm[Hg] - Sitting 98.30 Tympanic 99.00 % 76.00/ min 18.00/min 24269 017 46912 4 267.00 mg/dL 35581 017 31601 6 73.00 mm[Hg] - Sitting 109.00 mm[Hg] - Sitting 70.00/ min 44994 017 18558 1 184.00 mg/dL 54847 017 24277 5 184.00 mg/dL 62766 017 37311 9 248.00 mg/dL 82885 017 26504 8 299.00 mg/dL 33783 017 71045 3 299.00 mg/dL 25728 018 16358 7 50.00 mm[Hg] - Sitting 125.00 mm[Hg] - Sitting 98.30 Tympanic 98.00 % 76.00/ min 16.00/min 03077 018 53170 3 168.00 mg/dL 91843 018 15386 0 75.00 mm[Hg] - Sitting 121.00 mm[Hg] - Sitting 70.00/ min 21507 018 68734 7 264.00 mg/dL 99362 018 14618 6 132.00 mg/dL 41807 018 71979 6 154.00 mg/dL 33742 018 63354 6 154.00 mg/dL 07741 019 70687 4 63.00 mm[Hg] - Sitting 147.00 mm[Hg] - Sitting 98.50 Tympanic 99.00 % 69.00/ min 18.00/min 57178 019 79792 9 159.00 mg/dL 21987 019 76547 8 73.00 mm[Hg] - Sitting 110.00 mm[Hg] - Sitting 72.00/ min 10579 019 50847 4 191.00 mg/dL 15938 019 44015 8 70.00 mg/dL 98939 019 02371 4 70.00 mg/dL 92096 019 91374 6 198.00 mg/dL 76889 019 05788 0 198.00 mg/dL 55269 020 20273 2 59.00 mm[Hg] - Sitting 131.00 mm[Hg] - Sitting 98.90 Tympanic 99.00 % 69.00/ min 18.00/min 24521 020 35160 7 299.00 mg/dL 32427 020 05928 0 62.00 mm[Hg] - Sitting 132.00 mm[Hg] - Sitting 68.00/ min 70705 020 97848 3 299.00 mg/dL 37073 020 75721 3 299.00 mg/dL 08710 020 53844 9 220.00 mg/dL 57192 020 04886 1 220.00 mg/dL 19218 020 26384 1 270.00 mg/dL 42253 020 78571 4 270.00 mg/dL 54462 020 49838 9 143.00 mg/dL 43999 020 47041 4 143.00 mg/dL 79798 021 03131 0 59.00 mm[Hg] - Sitting 121.00 mm[Hg] - Sitting 98.40 Forehead Scan 98.00 % 70.00/ min 16.00/min 79192 021 49727 0 140.00 mg/dL 54878 021 41266 0 67.00 mm[Hg] - Sitting 130.00 mm[Hg] - Sitting 68.00/ min 54119 021 21546 8 140.00 mg/dL 65675 021 21569 6 140.00 mg/dL 27523 021 78501 8 156.00 mg/dL 33534 021 86658 1 156.00 mg/dL 04808 021 22246 5 146.00 mg/dL 20435 021 35542 4 146.00 mg/dL 69759 021 56853 5 183.00 mg/dL 27328 021 29828 2 183.00 mg/dL 89815 022 57859 3 81471 022 27196 1 43.00 mm[Hg] - Sitting 113.00 mm[Hg] - Sitting 97.80 Tympanic 97.00 % 64.00/ min 18.00/min 98809 022 45110 6 270.00 mg/dL 34058 022 41632 5 68.00 mm[Hg] - Sitting 122.00 mm[Hg] - Sitting 67.00/ min 92277 022 17734 9 270.00 mg/dL 49214 022 46004 4 270.00 mg/dL 62397 022 41180 4 207.00 mg/dL 02490 022 26160 8 207.00 mg/dL 65048 022 94706 9 217.00 mg/dL 15992 022 72669 2 217.00 mg/dL 05954 022 89755 0 192.00 mg/dL 90423 022 83972 9 192.00 mg/dL 55700 023 95909 9 68.00 mm[Hg] - Sitting 131.00 mm[Hg] - Sitting 68.00/ min 14083 023 77886 8 235.00 mg/dL 64628 023 55099 4 235.00 mg/dL 65761 023 98512 0 235.00 mg/dL Immunizations Vaccine Date Status COVID-19 09/20/2023 Completed Other 10/08/2023 Completed Shingles 05/27/2011 Completed Tetanus 04/13/2022 Completed TDaP 04/13/2022 Completed Shingles 2 10/05/2018 Completed
--- OUTSIDE RECORDS SUMMARY | 2024-10-03 11:03 | External Medical Summary | Continuity Of Care Document ---
Author Name Unknown Address [address] [address] Organization [facility] () Care Team Providers Care Rental Manager Name Role Phone DO Machado Amy Primary Care Provider [phone] Allergies Allergy Reaction Start Date End Date [...] 3 0.1 mL 08/29 Inactiv e 2023 75155 21346 0 1 time Intrad ermal False Tubersol 5 tub. unit/0.1 mL intradermal injection solution [Tuberculin PPD] 0.1mL Intradermal 1 time For PPD 2nd Step Give 2nd Step PPD Day 1 and Read results Day 3 (schedule 7 days after 1st READ) 0.1mL 09/08 Inactiv e 2023 59666 72329 0 1 time Intrad ermal False Humalog [...] order For Diabetes 08/25 Inactiv e 2023 42335 62899 9 4 times a day Subcut aneous False Aspirin 325 mg tablet [generic] 325 By Mouth Twice daily For Anticoagulati on 325 09/25 Active 2023 66903 64560 1 Twice daily By Mouth False Ferrous sulfate 325 mg (65 mg iron) tablet [generic] 325 By Mouth Once daily For anemia 325 2023 Active 2023 64751 43670 5 Once daily By Mouth False Linezolid 600 mg tablet [generic] 600 mg By Mouth Every 12 hours For MRSA INFECTION L BKA 600 mg 08/25 Inactiv e 2023 76961 75048 1 Every 12 hours By Mouth False Cefpodoxime 200 mg tablet [generic] 400 mg By Mouth Twice daily For MRSA INFECTION L BKA 400 mg 08/25 Inactiv e 2023 95508 34519 0 Twice daily By Mouth False Coenzyme Q10 100 mg tablet [generic] 100 mg By Mouth Once daily For SUPP 100 mg 2023 Active 2023 44500 01217 0 Once daily By Mouth False Levothyroxi ne 50 mcg tablet [generic] 50mcg By Mouth Once daily For hypothyroidis m 50mcg 2023 Active 2023 90913 96900 0 Once daily By Mouth False One A Day Men Complete 240 mcg-25 mcg-300 mcg tablet 1 tab By Mouth Once daily For supplement 1 tab 2023 Active 2023 22872 80054 1 Once daily By Mouth False Cholecalcif adalberto (vitamin D3) 50 mcg (2,000 unit) tablet [generic] 1 TAB By Mouth Once daily For SUPP 1 TAB 2023 Active 2023 45451 31354 1 Once daily By Mouth False Cetirizine 10 mg tablet [generic] 1 TAB By Mouth At bedtime For Allergies 1 TAB 2023 Active 2023 15801 85530 0 At bedtime By Mouth False Timolol maleate 0.25 % eye drops [generic] 1 drop Both Eyes Twice daily For glaucoma 1 drop 2023 0000 0000 Active 2023 11872 77152 5 Twice daily Both Eyes False Alendronate 35 mg tablet [generic] 35mg By Mouth Every week For SIADH 35mg 08/31 Inactiv e 2023 23383 04496 5 Every week By Mouth False Lantus Solostar U-100 Insulin 100 unit/mL (3 mL) subcutaneou s pen 18 units Subcutaneous Every morning For DIABETES 18 units 08/25 Inactiv e 2023 05132 12280 0 Every morning Subcut aneous False Lantus Solostar U-100 Insulin 100 unit/mL (3 mL) subcutaneou s pen 18 units Subcutaneous Every morning For DIABETES 18 units 2023 Active 2023 01696 28331 0 Every morning Subcut aneous False Linezolid 600 mg tablet [generic] 600 mg By Mouth Every 12 hours For MRSA INFECTION L BKA 600 mg 08/28 Inactiv e 2023 66590 81191 1 Every 12 hours By Mouth False [...] order For Diabetes 08/31 Inactiv e 2023 50463 54052 9 4 times a day Subcut aneous False Cefpodoxime 200 mg tablet [generic] 400 mg By Mouth Twice daily For MRSA INFECTION L BKA 400 mg 08/28 Inactiv e 2023 54287 03657 0 Twice daily By Mouth False Brimonidine 0.1 % eye drops [generic] 1 drop Both Eyes Twice daily For glaucoma 1 drop 2023 Active 2023 43080 24297 0 Twice daily Both Eyes False Metoprolol succinate ER 50 mg tablet,exte nded release 24 hr [generic] 50 mg By Mouth Once daily HOLD FOR SBP <100, or pulse <60 For HTN 50 mg 2023 Active 2023 82666 68979 1 Once daily By Mouth False Amlodipine 2.5 mg tablet [generic] 2.5 mg By Mouth Once daily For HTN 2.5 mg 2023 Active 2023 28738 91702 5 Once daily By Mouth False Docusate sodium 100 mg capsule [generic] 100mg By Mouth Twice daily as needed For constipation HOLD FOR LOOSE STOOLS 100mg 2023 Active 2023 50931 02816 1 Twice daily as needed By Mouth False Atorvastati n 40 mg tablet [generic] 40mg By Mouth Once daily For HDL 40mg 08/26 Inactiv e 2023 23103 05958 5 Once daily By Mouth False Tylenol 325 mg tablet 2 tabs By Mouth Every 4 hours as needed For Pain DO NOT EXCEED 3000 MG APAP/24 Hours 2 tabs 2023 Active 2023 79396 22468 0 Every 4 hours as needed By Mouth False Tylenol 325 mg tablet 2 tabs By Mouth Every 4 hours as needed For Fever >100 DO NOT EXCEED 3000 MG APAP/24 Hours 2 tabs 2023 Active 2023 54294 06925 0 Every 4 hours as needed By Mouth False Dulcolax (bisacodyl) 10 mg rectal suppository One Suppository per rectum PRN if Milk of Magnisia ineffective. Give on day 5 of no BM 1 sup 2023 Active 2023 45717 63567 1 Daily as needed Rectal False Fleet Enema 19 gram-7 gram/118 mL Administer per rectum PRN one time if dulcolax suppository not effective. Give on day 6 of no BM 1 2023 Active 2023 90822 84965 6 Daily as needed Rectal False Dextrose 50 % in water (D50W) intravenous solution [generic] Dextrose 50% evonne 20-50 ml (slow push) Intravenous if Glucagon not effective after 15 minutes. CALL 911 for ED Evaluation. 50% evonne 2023 Active 2023 44099 63631 9 Intrav enous False Glucagon (HCl) Emergency Kit 1 mg solution for injection Administer Glucagon 1 mg Intramuscular if 15 minutes after GLucose Gel is administered Glucose remains less than 70 1 mg 2023 Active 2023 04829 83450 2 Intram uscula r False Glucose Gel 40 % oral gel [Dextrose] PRN If resident is unable to swallow (with or without symptoms) and Glucose results less than 70 give GLucose 40% Gel 1 tube orally - Recheck Glucose 15 minutes after administratio n. 1 tube 2023 Active 2023 92159 80137 8 By Mouth False Milk of Magnesia 400 mg/5 mL oral suspension [Magnesium hydroxide] PRN 30ml By Mouth Daily as needed for constipation one time daily if no BM, on day 4 of no BM (PRN refer to instructions) For Constipation 30 mL 2023 Active 2023 72004 20225 6 Daily as needed By Mouth False Atorvastati n 40 mg tablet [generic] 08/26 Inactiv e 2023 57644 65474 5 Atorvastati n 40 mg tablet [generic] 40mg By Mouth Once daily For HDL 40mg 2023 Active 2023 99815 58992 5 Once daily By Mouth False Insulin aspart (U-100) 100 unit/mL (3 mL) subcutaneou s pen [generic] 15 units Subcutaneous 1 time For dm 15 units 08/26 Inactiv e 2023 48546 37676 5 1 time Subcut aneous False Humalog KwikPen (U-100) Insulin 100 unit/mL subcutaneou s 15 units Subcutaneous 1 time For dm 15 units 08/27 Inactiv e 2023 72891 27675 9 1 time Subcut aneous False Linezolid 600 mg tablet [generic] 600 mg By Mouth Every 12 hours For MRSA INFECTION L BKA 600 mg 09/06 Inactiv e 2023 98674 91753 1 Every 12 hours By Mouth False Cefpodoxime 200 mg tablet [generic] 400 mg By Mouth Twice daily For MRSA INFECTION L BKA 400 mg 08/31 Inactiv e 2023 32855 76157 0 Twice daily By Mouth False Senna 8.6 mg tablet 8.6 mg By Mouth Once daily For Constipation 8.6 mg 09/07 Inactiv e 2023 45925 66486 1 Once daily By Mouth False Humalog [...] abnormalities . Per Carb 2023 Active 2023 94347 05683 9 4 times a day Subcut aneous False Alendronate 35 mg tablet [generic] 08/31 Inactiv e 2023 65807 28101 5 Alendronate 35 mg tablet [generic] 35mg By Mouth Every week For Osteoporosis 35mg 2023 Active 2023 46819 95317 5 Every week By Mouth False ProSource 10 gram-100 kcal/30 mL oral liquid 30 ml By Mouth Once daily For wound healing 30 ml 2023 Active 2023 34224 41684 2 Once daily By Mouth False Clotrimazol e 1 % topical cream [generic] 1 applicaiton Topical Twice daily For tinea, apply to groin rash after cleansing and throughouly drying. Can discontinue order 3 days after rash resolves. 1 applica stacy 09/08 Inactiv e 2023 59377 11576 0 Twice daily Topica l False MAGIC MIX 1:1:1:1 : ZINC OXIDE EXTERNAL OINTMENT 40%; HYDROCOTISO NE EXTERNAL CREAM 1%; NYSTATIN EXTERNAL CREAM 434745D/GM; SILVADENE CREAM 1% Every shift Apply topically to MASD area on coccyx/buttoc ks each shift and as needed for incontinence care For MASD on coccyx layer 2023 Active 2023 Every shift Topica l False Senna 8.6 mg tablet 8.6 mg By Mouth Once daily For Constipation 8.6 mg 09/07 Inactiv e 2023 17137 31485 1 Once daily By Mouth False Senna 8.6 mg tablet 8.6 mg By Mouth Once daily As Needed For Constipation 8.6 mg 2023 Active 2023 37176 60540 1 Once daily By Mouth False BD AutoShield Duo Pen Needle 30 gauge x 3/16in 1 pen needle Subcutaneous 4 times a day For DM 1 pen needle 2023 Active 2023 15018 90429 5 4 times a day Subcut aneous False Hydrocortis one 1 % topical ointment [generic] 1 application Topical Twice daily For tinea *mix 1:1 with clotrimazole cream and apply to clean/dry groin rash 1 applica peggy 09/19 Active 2023 25154 43083 6 Twice daily Topica l False Clotrimazol e 1 % topical cream [generic] 1 applicaiton Topical Twice daily For tinea, apply to groin rash after cleansing and throughouly drying. MIX WITH HYDROCORTISON E Can discontinue order 3 days after rash resolves. 1 applica stacy 2023 Active 2023 00483 30084 0 Twice daily Topica l False Humalog KwikPen (U-100) Insulin 100 unit/mL subcutaneou s 10/10/ 2024 10/10 /2024 Inactiv e 2023 53987 50927 9 MediHoney HCS 4 1/2in X 4 1/2in bandage Cleanse area with NSS, apply one medihoney hydrocolloid dressing, non adherent dressing, kerlix secure with paper tape daily. For wound stage III 1 2023 Active 2023 61744 39351 1 Once daily Topica l False Problems Code Description Start Date End Date Status D64.9 Anemia, unspecified 08/25/2024 Activ e I25.10 Atherosclerotic hear t disease of [place] coronary artery without angina pectoris 08/25/2024 Active [...] weight Temperature SpO2 Blood Sugar Pulse Respirations 72748 8 67.00 mm[Hg] - Sitting 145.00 mm[Hg] - Sitting 98.50 Forehead Scan 96.00 % 81.00/ min 16.00/min 66229 004 73444 2 67.00 mm[Hg] - Sitting 145.00 mm[Hg] - Sitting 98.50 Tympanic 81.00/ min 16.00/min 35862 004 04556 5 56.00 mm[Hg] - Sitting 142.00 mm[Hg] - Sitting 136.40 NI 100.20 Tympanic 96.00 % 92.00/ min 18.00/min 56903 004 10932 6 85151 004 64663 4 143.00 mg/dL 99409 004 19302 0 97.80 Tympanic 67195 005 32825 7 60.00 mm[Hg] - Sitting 140.00 mm[Hg] - Sitting 98.00 Tympanic 84.00/ min 18.00/min 76918 005 45274 0 63.00 mm[Hg] - Sitting 141.00 mm[Hg] - Sitting 98.20 Tympanic 92.00 % 63.00/ min 16.00/min 08094 005 86526 8 69.00 mm[Hg] - Sitting 106.00 mm[Hg] - Sitting 97.20 Tympanic 63312 005 63401 7 69.00/ min 16.00/min 03819 005 96501 3 69.00 mm[Hg] - Sitting 106.00 mm[Hg] - Sitting 98.20 Tympanic 69.00/ min 16.00/min 29555 005 82014 1 367.00 mg/dL 38630 005 08774 2 97.20 Tympanic 87013 005 05995 4 97.20 Tympanic 52820 005 08097 0 69.00 mm[Hg] - Sitting 106.00 mm[Hg] - Sitting 69.00/ min 29866 005 95894 3 452.00 mg/dL 41185 005 01346 3 452.00 mg/dL 16571 005 25210 5 352.00 mg/dL 73370 005 48433 3 352.00 mg/dL 10782 005 05837 7 98.20 Tympanic 39551 005 15904 3 101.00 mg/dL 11539 005 8 101.00 mg/dL 51866 006 98647 4 66.00 mm[Hg] - Sitting 107.00 mm[Hg] - Sitting 98.00 Tympanic 66.00/ min 18.00/min 35908 006 02765 0 62.00 mm[Hg] - Sitting 162.00 mm[Hg] - Sitting 98.20 Tympanic 96.00 % 60.00/ min 16.00/min 03462 006 63915 4 62.00 mm[Hg] - Sitting 162.00 mm[Hg] - Sitting 98.00 Tympanic 70.00/ min 18.00/min 59127 006 45833 8 62.00 mm[Hg] - Sitting 162.00 mm[Hg] - Sitting 98.20 Tympanic 70.00/ min 18.00/min 04633 006 90898 2 66.00 mm[Hg] - Sitting 132.00 mm[Hg] - Sitting 98.60 Tympanic 74.00/ min 16.00/min 02901 006 20073 5 159.00 mg/dL 09741 006 39282 1 159.00 mg/dL 75730 006 07844 8 98.00 Tympanic 45306 006 67713 2 62.00 mm[Hg] - Sitting 162.00 mm[Hg] - Sitting 70.00/ min 70815 006 94887 7 264.00 mg/dL 48961 006 97060 7 264.00 mg/dL 07852 006 39556 4 196.00 mg/dL 94185 006 67610 3 98.20 Tympanic 34409 006 78590 6 271.00 mg/dL 25149 007 76864 3 97.20 Tympanic 21733 007 72020 2 63.00 mm[Hg] - Sitting 132.00 mm[Hg] - Sitting 98.50 Tympanic 94.00 % 66.00/ min 16.00/min 48010 007 24954 5 188.00 mg/dL 70588 007 58119 2 188.00 mg/dL 57602 007 71211 2 188.00 mg/dL 41934 007 92744 7 97.20 Tympanic 24048 007 06547 6 97.20 Tympanic 38422 007 66898 5 67.00 mm[Hg] - Sitting 152.00 mm[Hg] - Sitting 68.00/ min 02765 007 99190 0 141.00 mg/dL 18012 007 07628 3 141.00 mg/dL 19456 007 40320 1 366.00 mg/dL 60733 007 31799 7 366.00 mg/dL 01550 007 05999 7 98.00 Tympanic 57344 007 39637 6 324.00 mg/dL 69380 007 22688 3 98.00 Tympanic 73207 007 14504 7 324.00 mg/dL 88204 008 32717 0 98.00 Tympanic 65844 008 68142 2 97.90 Tympanic 54590 008 28181 0 98.20 Tympanic 74654 008 74702 0 73.00 mm[Hg] - Sitting 156.00 mm[Hg] - Sitting 98.60 Tympanic 99.00 % 66.00/ min 20.00/min 79205 008 75527 5 137.00 mg/dL 55712 008 91581 7 137.00 mg/dL 95451 008 42694 2 97.90 Tympanic 19874 008 99012 1 137.00 mg/dL 26382 008 86178 8 97.90 Tympanic 02101 008 45903 5 67.00 mm[Hg] - Sitting 124.00 /min 24247 008 81846 6 212.00 mg/dL 59930 008 98747 6 212.00 mg/dL 44687 008 84653 9 317.00 mg/dL 83596 008 51094 4 317.00 mg/dL 78080 008 21387 8 252.00 mg/dL 14264 008 01303 0 98.70 Tympanic 83079 008 75442 7 252.00 mg/dL 45226 008 88767 3 98.70 Tympanic 47988 009 02814 9 98.70 Tympanic 21810 009 39251 3 98.20 Tympanic 39013 009 51123 5 98.40 Tympanic 56674 009 64062 5 57.00 mm[Hg] - Sitting 129.00 mm[Hg] - Sitting 98.30 Tympanic 97.00 % 65.00/ min 18.00/min 50267 009 48626 1 255.00 mg/dL 17429 009 66444 4 255.00 mg/dL 00994 009 41430 5 98.20 Tympanic 00910 009 84168 0 255.00 mg/dL 79354 009 00351 0 98.20 Tympanic 31848 009 01739 4 63.00 mm[Hg] - Lying Down 102.00 mm[Hg] - Lying Down 58.00/ min 87739 009 55324 0 167.00 mg/dL 40110 009 64806 1 167.00 mg/dL 01967 009 08694 2 164.00 mg/dL 54183 009 15895 1 164.00 mg/dL 99111 009 13421 5 208.00 mg/dL 08516 010 34759 3 98.40 Tympanic 67859 010 81291 5 98.40 Tympanic 87322 010 01418 7 66 NI 64680 010 73384 4 60.00 mm[Hg] - Sitting 143.00 mm[Hg] - Sitting 98.90 Tympanic 98.00 % 67.00/ min 18.00/min 87429 010 55098 2 214.00 mg/dL 85999 010 17894 0 214.00 mg/dL 14065 010 86715 7 214.00 mg/dL 24859 010 76392 6 64.00 mm[Hg] - Sitting 110.00 mm[Hg] - Sitting 72.00/ min 88505 010 67568 7 98.40 Tympanic 86276 010 47668 1 212.00 mg/dL 16365 010 69136 2 212.00 mg/dL 61863 010 96659 1 115.00 mg/dL 26026 010 01748 0 115.00 mg/dL 94628 010 13333 4 98.50 Tympanic 77891 010 31347 4 150.00 mg/dL 17226 010 59220 0 150.00 mg/dL 55833 011 94553 9 98.60 Tympanic 82758 011 83805 1 67.00 mm[Hg] - Sitting 144.00 mm[Hg] - Sitting 98.20 Tympanic 98.00 % 61.00/ min 18.00/min 95191 011 06784 7 290.00 mg/dL 37168 011 71376 2 290.00 mg/dL 09503 011 40772 2 290.00 mg/dL 56786 011 22181 7 54.00 mm[Hg] - Sitting 136.00 mm[Hg] - Sitting 101.00 /min 95076 011 14647 7 98.60 Tympanic 91560 011 12076 5 240.00 mg/dL 04625 011 61276 1 240.00 mg/dL 18750 011 20296 1 156.00 mg/dL 22825 011 87796 9 156.00 mg/dL 35915 011 41587 0 97.80 Tympanic 48055 011 70834 8 343.00 mg/dL 13699 012 95074 9 97.90 Tympanic 92259 012 79984 2 466.00 mg/dL 55956 012 68475 1 466.00 mg/dL 41577 012 40110 3 466.00 mg/dL 47496 012 40585 8 97.90 Tympanic 57060 012 99516 8 56.00 mm[Hg] - Sitting 96.00 mm[Hg] - Sitting 61.00/ min 38004 012 32391 7 350.00 mg/dL 34024 012 62701 5 350.00 mg/dL 45773 012 79763 6 111.00 mg/dL 35685 012 58045 0 111.00 mg/dL 65732 012 32338 5 98.40 Tympanic 74737 012 01375 6 114.00 mg/dL 94497 013 11153 4 74.00 mm[Hg] - Sitting 112.00 mm[Hg] - Sitting 98.40 Tympanic 70.00/ min 18.00/min 57730 013 56139 8 244.00 mg/dL 23188 013 21214 7 244.00 mg/dL 76844 013 32435 1 244.00 mg/dL 10835 013 57018 1 98.20 Tympanic 05772 013 94477 7 72.00 mm[Hg] - Sitting 119.00 mm[Hg] - Sitting 76.00/ min 26887 013 92436 7 253.00 mg/dL 64142 013 68586 4 253.00 mg/dL 18882 013 99870 9 156.00 mg/dL 42839 013 87151 5 156.00 mg/dL 47420 013 03020 4 97.90 Tympanic 60017 013 36129 5 189.00 mg/dL 55631 014 34992 9 98.10 Tympanic 65580 014 37906 0 61.00 mm[Hg] - Sitting 139.00 mm[Hg] - Sitting 98.20 Forehead Scan 99.00 % 66.00/ min 18.00/min 34530 014 96250 3 169.00 mg/dL 28010 014 31569 3 98.10 Tympanic 44452 014 30503 3 75.00 mm[Hg] - Sitting 121.00 mm[Hg] - Sitting 71.00/ min 75366 014 28551 9 221.00 mg/dL 20222 014 52025 9 62.00 mg/dL 36442 014 75523 5 62.00 mg/dL 09087 014 81962 8 156.00 mg/dL 01873 014 00680 6 98.10 Tympanic 36597 014 33992 7 156.00 mg/dL 28128 015 10179 4 61476 015 45507 7 62.00 mm[Hg] - Sitting 142.00 mm[Hg] - Sitting 98.20 Tympanic 99.00 % 67.00/ min 18.00/min 29561 015 74616 9 120.00 mg/dL 99769 015 20958 7 98.00 Tympanic 88799 015 23489 2 82.00 mm[Hg] - Sitting 119.00 /min 60001 015 27114 9 110.00 mg/dL 19114 015 20142 6 104.00 mg/dL 16441 015 74916 0 100.00 mg/dL 87573 015 98960 2 98.10 Tympanic 15640 015 76350 6 100.00 mg/dL 85654 016 42634 2 67.00 mm[Hg] - Sitting 147.00 mm[Hg] - Sitting 99.00 Tympanic 99.00 % 78.00/ min 20.00/min 73739 016 99672 5 158.00 mg/dL 76811 016 38403 1 158.00 mg/dL 17506 016 98896 2 158.00 mg/dL 11867 016 07961 0 66.00 mm[Hg] - Sitting 121.00 mm[Hg] - Sitting 74.00/ min 00193 016 84133 1 97.00 mg/dL 37893 016 77336 5 97.00 mg/dL 26919 016 78307 4 78.00 mg/dL 90946 016 48987 6 78.00 mg/dL 01254 016 25532 5 248.00 mg/dL 33848 016 37476 8 248.00 mg/dL 92892 017 76588 3 54.00 mm[Hg] - Sitting 142.00 mm[Hg] - Sitting 98.30 Tympanic 99.00 % 76.00/ min 18.00/min 96305 017 46577 4 267.00 mg/dL 44949 017 61359 6 73.00 mm[Hg] - Sitting 109.00 mm[Hg] - Sitting 70.00/ min 60382 017 60574 1 184.00 mg/dL 58122 017 38151 5 184.00 mg/dL 24788 017 49988 9 248.00 mg/dL 43558 017 18648 8 299.00 mg/dL 26431 017 91075 3 299.00 mg/dL 92003 018 88744 7 50.00 mm[Hg] - Sitting 125.00 mm[Hg] - Sitting 98.30 Tympanic 98.00 % 76.00/ min 16.00/min 32807 018 92018 3 168.00 mg/dL 66262 018 13979 0 75.00 mm[Hg] - Sitting 121.00 mm[Hg] - Sitting 70.00/ min 57624 018 09223 7 264.00 mg/dL 18008 018 32342 6 132.00 mg/dL 37247 018 55464 6 154.00 mg/dL 76111 018 67008 6 154.00 mg/dL 84870 019 47525 4 63.00 mm[Hg] - Sitting 147.00 mm[Hg] - Sitting 98.50 Tympanic 99.00 % 69.00/ min 18.00/min 94755 019 13712 9 159.00 mg/dL 90210 019 63334 8 73.00 mm[Hg] - Sitting 110.00 mm[Hg] - Sitting 72.00/ min 02354 019 71026 4 191.00 mg/dL 91689 019 05890 8 70.00 mg/dL 12043 019 89710 4 70.00 mg/dL 80254 019 82293 6 198.00 mg/dL 23200 019 77350 0 198.00 mg/dL 20219 020 15955 2 59.00 mm[Hg] - Sitting 131.00 mm[Hg] - Sitting 98.90 Tympanic 99.00 % 69.00/ min 18.00/min 18180 020 72599 7 299.00 mg/dL 96941 020 31635 0 62.00 mm[Hg] - Sitting 132.00 mm[Hg] - Sitting 68.00/ min 01178 020 62390 3 299.00 mg/dL 88064 020 47501 3 299.00 mg/dL 29286 020 12942 9 220.00 mg/dL 99509 020 95399 1 220.00 mg/dL 27303 020 38765 1 270.00 mg/dL 96989 020 91383 4 270.00 mg/dL 24019 020 40961 9 143.00 mg/dL 75054 020 32348 4 143.00 mg/dL 34289 021 44429 0 59.00 mm[Hg] - Sitting 121.00 mm[Hg] - Sitting 98.40 Forehead Scan 98.00 % 70.00/ min 16.00/min 04104 021 53436 0 140.00 mg/dL 30556 021 56054 0 67.00 mm[Hg] - Sitting 130.00 mm[Hg] - Sitting 68.00/ min 54201 021 92803 8 140.00 mg/dL 01507 021 25716 6 140.00 mg/dL 59965 021 17632 8 156.00 mg/dL 70138 021 62620 1 156.00 mg/dL 05645 021 33731 5 146.00 mg/dL 75035 021 99506 4 146.00 mg/dL 85905 021 60849 5 183.00 mg/dL 02416 021 19171 2 183.00 mg/dL 69477 022 03654 3 40181 022 56651 1 43.00 mm[Hg] - Sitting 113.00 mm[Hg] - Sitting 97.80 Tympanic 97.00 % 64.00/ min 18.00/min 60606 022 76761 6 270.00 mg/dL 14341 022 82272 5 68.00 mm[Hg] - Sitting 122.00 mm[Hg] - Sitting 67.00/ min 49565 022 06670 9 270.00 mg/dL 37301 022 46462 4 270.00 mg/dL 57382 022 44369 4 207.00 mg/dL 54398 022 71456 8 207.00 mg/dL 94274 022 68180 9 217.00 mg/dL 67525 022 39908 2 217.00 mg/dL 83710 022 44043 0 192.00 mg/dL 90159 022 95867 9 192.00 mg/dL 97200 023 62260 9 68.00 mm[Hg] - Sitting 131.00 mm[Hg] - Sitting 68.00/ min 36136 023 64147 8 235.00 mg/dL 63300 023 95063 4 235.00 mg/dL 32669 023 72572 0 235.00 mg/dL Immunizations Vaccine Date Status COVID-19 09/20/2023 Completed Other 10/08/2023 Completed Shingles 05/27/2011 Completed Tetanus 04/13/2022 Completed TDaP 04/13/2022 Completed Shingles 2 10/05/2018 Completed
--- OUTSIDE RECORDS SUMMARY | 2024-10-03 11:03 | External Medical Summary | Continuity Of Care Document ---
Author Name Unknown Address [address] [address] Organization [facility] () Care Team Providers Care [employer] Name Role Phone DO Machado Amy Primary Care Provider [phone] Allergies Allergy Reaction Start Date End Date [...] 3 0.1 mL 08/29 Inactiv e 2023 96045 11664 0 1 time Intrad ermal False Tubersol 5 tub. unit/0.1 mL intradermal injection solution [Tuberculin PPD] 0.1mL Intradermal 1 time For PPD 2nd Step Give 2nd Step PPD Day 1 and Read results Day 3 (schedule 7 days after 1st READ) 0.1mL 09/08 Inactiv e 2023 12222 44206 0 1 time Intrad ermal False Humalog [...] order For Diabetes 08/25 Inactiv e 2023 89513 63247 9 4 times a day Subcut aneous False Aspirin 325 mg tablet [generic] 325 By Mouth Twice daily For Anticoagulati on 325 09/25 Active 2023 87023 55176 1 Twice daily By Mouth False Ferrous sulfate 325 mg (65 mg iron) tablet [generic] 325 By Mouth Once daily For anemia 325 2023 Active 2023 33038 52047 5 Once daily By Mouth False Linezolid 600 mg tablet [generic] 600 mg By Mouth Every 12 hours For MRSA INFECTION L BKA 600 mg 08/25 Inactiv e 2023 37984 74855 1 Every 12 hours By Mouth False Cefpodoxime 200 mg tablet [generic] 400 mg By Mouth Twice daily For MRSA INFECTION L BKA 400 mg 08/25 Inactiv e 2023 09086 24091 0 Twice daily By Mouth False Coenzyme Q10 100 mg tablet [generic] 100 mg By Mouth Once daily For SUPP 100 mg 2023 Active 2023 65498 06588 0 Once daily By Mouth False Levothyroxi ne 50 mcg tablet [generic] 50mcg By Mouth Once daily For hypothyroidis m 50mcg 2023 Active 2023 52423 93171 0 Once daily By Mouth False One A Day Men Complete 240 mcg-25 mcg-300 mcg tablet 1 tab By Mouth Once daily For supplement 1 tab 2023 Active 2023 22040 03115 1 Once daily By Mouth False Cholecalcif adalberto (vitamin D3) 50 mcg (2,000 unit) tablet [generic] 1 TAB By Mouth Once daily For SUPP 1 TAB 2023 Active 2023 97496 38124 1 Once daily By Mouth False Cetirizine 10 mg tablet [generic] 1 TAB By Mouth At bedtime For Allergies 1 TAB 2023 Active 2023 08200 47014 0 At bedtime By Mouth False Timolol maleate 0.25 % eye drops [generic] 1 drop Both Eyes Twice daily For glaucoma 1 drop 2023 0000 0000 Active 2023 40343 98777 5 Twice daily Both Eyes False Alendronate 35 mg tablet [generic] 35mg By Mouth Every week For SIADH 35mg 08/31 Inactiv e 2023 26474 72754 5 Every week By Mouth False Lantus Solostar U-100 Insulin 100 unit/mL (3 mL) subcutaneou s pen 18 units Subcutaneous Every morning For DIABETES 18 units 08/25 Inactiv e 2023 90645 51662 0 Every morning Subcut aneous False Lantus Solostar U-100 Insulin 100 unit/mL (3 mL) subcutaneou s pen 18 units Subcutaneous Every morning For DIABETES 18 units 2023 Active 2023 26662 60909 0 Every morning Subcut aneous False Linezolid 600 mg tablet [generic] 600 mg By Mouth Every 12 hours For MRSA INFECTION L BKA 600 mg 08/28 Inactiv e 2023 19727 90157 1 Every 12 hours By Mouth False [...] order For Diabetes 08/31 Inactiv e 2023 39629 78188 9 4 times a day Subcut aneous False Cefpodoxime 200 mg tablet [generic] 400 mg By Mouth Twice daily For MRSA INFECTION L BKA 400 mg 08/28 Inactiv e 2023 52371 31487 0 Twice daily By Mouth False Brimonidine 0.1 % eye drops [generic] 1 drop Both Eyes Twice daily For glaucoma 1 drop 2023 Active 2023 78429 97762 0 Twice daily Both Eyes False Metoprolol succinate ER 50 mg tablet,exte nded release 24 hr [generic] 50 mg By Mouth Once daily HOLD FOR SBP <100, or pulse <60 For HTN 50 mg 2023 Active 2023 47963 84132 1 Once daily By Mouth False Amlodipine 2.5 mg tablet [generic] 2.5 mg By Mouth Once daily For HTN 2.5 mg 2023 Active 2023 49389 12050 5 Once daily By Mouth False Docusate sodium 100 mg capsule [generic] 100mg By Mouth Twice daily as needed For constipation HOLD FOR LOOSE STOOLS 100mg 2023 Active 2023 19054 24629 1 Twice daily as needed By Mouth False Atorvastati n 40 mg tablet [generic] 40mg By Mouth Once daily For HDL 40mg 08/26 Inactiv e 2023 30196 26249 5 Once daily By Mouth False Tylenol 325 mg tablet 2 tabs By Mouth Every 4 hours as needed For Pain DO NOT EXCEED 3000 MG APAP/24 Hours 2 tabs 2023 Active 2023 40977 81218 0 Every 4 hours as needed By Mouth False Tylenol 325 mg tablet 2 tabs By Mouth Every 4 hours as needed For Fever >100 DO NOT EXCEED 3000 MG APAP/24 Hours 2 tabs 2023 Active 2023 58292 53968 0 Every 4 hours as needed By Mouth False Dulcolax (bisacodyl) 10 mg rectal suppository One Suppository per rectum PRN if Milk of Magnisia ineffective. Give on day 5 of no BM 1 sup 2023 Active 2023 44684 85201 1 Daily as needed Rectal False Fleet Enema 19 gram-7 gram/118 mL Administer per rectum PRN one time if dulcolax suppository not effective. Give on day 6 of no BM 1 2023 Active 2023 00156 57161 6 Daily as needed Rectal False Dextrose 50 % in water (D50W) intravenous solution [generic] Dextrose 50% evonne 20-50 ml (slow push) Intravenous if Glucagon not effective after 15 minutes. CALL 911 for ED Evaluation. 50% evonne 2023 Active 2023 83529 74849 9 Intrav enous False Glucagon (HCl) Emergency Kit 1 mg solution for injection Administer Glucagon 1 mg Intramuscular if 15 minutes after GLucose Gel is administered Glucose remains less than 70 1 mg 2023 Active 2023 35102 67294 2 Intram uscula r False Glucose Gel 40 % oral gel [Dextrose] PRN If resident is unable to swallow (with or without symptoms) and Glucose results less than 70 give GLucose 40% Gel 1 tube orally - Recheck Glucose 15 minutes after administratio n. 1 tube 2023 Active 2023 51567 77929 8 By Mouth False Milk of Magnesia 400 mg/5 mL oral suspension [Magnesium hydroxide] PRN 30ml By Mouth Daily as needed for constipation one time daily if no BM, on day 4 of no BM (PRN refer to instructions) For Constipation 30 mL 2023 Active 2023 21138 91047 6 Daily as needed By Mouth False Atorvastati n 40 mg tablet [generic] 08/26 Inactiv e 2023 47324 54423 5 Atorvastati n 40 mg tablet [generic] 40mg By Mouth Once daily For HDL 40mg 2023 Active 2023 40844 51593 5 Once daily By Mouth False Insulin aspart (U-100) 100 unit/mL (3 mL) subcutaneou s pen [generic] 15 units Subcutaneous 1 time For dm 15 units 08/26 Inactiv e 2023 25991 94580 5 1 time Subcut aneous False Humalog KwikPen (U-100) Insulin 100 unit/mL subcutaneou s 15 units Subcutaneous 1 time For dm 15 units 08/27 Inactiv e 2023 89559 01647 9 1 time Subcut aneous False Linezolid 600 mg tablet [generic] 600 mg By Mouth Every 12 hours For MRSA INFECTION L BKA 600 mg 09/06 Inactiv e 2023 44609 87901 1 Every 12 hours By Mouth False Cefpodoxime 200 mg tablet [generic] 400 mg By Mouth Twice daily For MRSA INFECTION L BKA 400 mg 08/31 Inactiv e 2023 64129 57405 0 Twice daily By Mouth False Senna 8.6 mg tablet 8.6 mg By Mouth Once daily For Constipation 8.6 mg 09/07 Inactiv e 2023 18837 82727 1 Once daily By Mouth False Humalog [...] abnormalities . Per Carb 2023 Active 2023 73969 03098 9 4 times a day Subcut aneous False Alendronate 35 mg tablet [generic] 08/31 Inactiv e 2023 25511 34455 5 Alendronate 35 mg tablet [generic] 35mg By Mouth Every week For Osteoporosis 35mg 2023 Active 2023 96296 89277 5 Every week By Mouth False ProSource 10 gram-100 kcal/30 mL oral liquid 30 ml By Mouth Once daily For wound healing 30 ml 2023 Active 2023 13292 19132 2 Once daily By Mouth False Clotrimazol e 1 % topical cream [generic] 1 applicaiton Topical Twice daily For tinea, apply to groin rash after cleansing and throughouly drying. Can discontinue order 3 days after rash resolves. 1 applica stacy 09/08 Inactiv e 2023 92597 64008 0 Twice daily Topica l False MAGIC MIX 1:1:1:1 : ZINC OXIDE EXTERNAL OINTMENT 40%; HYDROCOTISO NE EXTERNAL CREAM 1%; NYSTATIN EXTERNAL CREAM [id number]/GM; SILVADENE CREAM 1% Every shift Apply topically to MASD area on coccyx/buttoc ks each shift and as needed for incontinence care For MASD on coccyx layer 2023 Active 2023 Every shift Topica l False Senna 8.6 mg tablet 8.6 mg By Mouth Once daily For Constipation 8.6 mg 09/07 Inactiv e 2023 00996 20952 1 Once daily By Mouth False Senna 8.6 mg tablet 8.6 mg By Mouth Once daily As Needed For Constipation 8.6 mg 2023 Active 2023 39610 88560 1 Once daily By Mouth False BD AutoShield Duo Pen Needle 30 gauge x 3/16in 1 pen needle Subcutaneous 4 times a day For DM 1 pen needle 2023 Active 2023 77068 54810 5 4 times a day Subcut aneous False Hydrocortis one 1 % topical ointment [generic] 1 application Topical Twice daily For tinea *mix 1:1 with clotrimazole cream and apply to clean/dry groin rash 1 applica peggy 09/19 Active 2023 53698 35841 6 Twice daily Topica l False Clotrimazol e 1 % topical cream [generic] 1 applicaiton Topical Twice daily For tinea, apply to groin rash after cleansing and throughouly drying. MIX WITH HYDROCORTISON E Can discontinue order 3 days after rash resolves. 1 applica stacy 2023 Active 2023 26255 31729 0 Twice daily Topica l False Humalog KwikPen (U-100) Insulin 100 unit/mL subcutaneou s 10/10/ 2024 10/10 /2024 Inactiv e 2023 09517 49922 9 MediHoney HCS 4 1/2in X 4 1/2in bandage Cleanse area with NSS, apply one medihoney hydrocolloid dressing, non adherent dressing, kerlix secure with paper tape daily. For wound stage III 1 2023 Active 2023 69117 74332 1 Once daily Topica l False Problems Code Description Start Date End Date Status D64.9 Anemia, unspecified 08/25/2024 Activ e I25.10 Atherosclerotic hear t disease of [place] coronary artery without angina pectoris 08/25/2024 Active [...] weight Temperature SpO2 Blood Sugar Pulse Respirations 81384 8 67.00 mm[Hg] - Sitting 145.00 mm[Hg] - Sitting 98.50 Forehead Scan 96.00 % 81.00/ min 16.00/min 20605 004 71322 2 67.00 mm[Hg] - Sitting 145.00 mm[Hg] - Sitting 98.50 Tympanic 81.00/ min 16.00/min 32438 004 14567 5 56.00 mm[Hg] - Sitting 142.00 mm[Hg] - Sitting 136.40 NI 100.20 Tympanic 96.00 % 92.00/ min 18.00/min 84136 004 33111 6 77001 004 56593 4 143.00 mg/dL 51750 004 00118 0 97.80 Tympanic 84914 005 32304 7 60.00 mm[Hg] - Sitting 140.00 mm[Hg] - Sitting 98.00 Tympanic 84.00/ min 18.00/min 06227 005 25931 0 63.00 mm[Hg] - Sitting 141.00 mm[Hg] - Sitting 98.20 Tympanic 92.00 % 63.00/ min 16.00/min 35521 005 41011 8 69.00 mm[Hg] - Sitting 106.00 mm[Hg] - Sitting 97.20 Tympanic 16580 005 73447 7 69.00/ min 16.00/min 06146 005 59669 3 69.00 mm[Hg] - Sitting 106.00 mm[Hg] - Sitting 98.20 Tympanic 69.00/ min 16.00/min 42519 005 09615 1 367.00 mg/dL 42152 005 17538 2 97.20 Tympanic 84911 005 00042 4 97.20 Tympanic 73038 005 63837 0 69.00 mm[Hg] - Sitting 106.00 mm[Hg] - Sitting 69.00/ min 97520 005 79673 3 452.00 mg/dL 20498 005 44238 3 452.00 mg/dL 27178 005 37528 5 352.00 mg/dL 36141 005 56795 3 352.00 mg/dL Immunizations Vaccine Date Status COVID-19 09/20/2023 Completed Other 10/08/2023 Completed Shingles 05/27/2011 Completed Tetanus 04/13/2022 Completed TDaP 04/13/2022 Completed Shingles 2 10/05/2018 Completed
--- OUTSIDE RECORDS SUMMARY | 2024-10-03 11:04 | External Medical Summary | Continuity Of Care Document ---
Author Name Unknown Address [address] [address] Organization [facility] () Care Team Providers Care Exhibits Coordinator Name Role Phone DO Machado Amy Primary Care Provider [phone] Allergies Allergy Reaction Start Date End Date [...] 3 0.1 mL 08/29 Inactiv e 2023 44151 09726 0 1 time Intrad ermal False Tubersol 5 tub. unit/0.1 mL intradermal injection solution [Tuberculin PPD] 0.1mL Intradermal 1 time For PPD 2nd Step Give 2nd Step PPD Day 1 and Read results Day 3 (schedule 7 days after 1st READ) 0.1mL 09/08 Inactiv e 2023 09025 70253 0 1 time Intrad ermal False Humalog [...] order For Diabetes 08/25 Inactiv e 2023 07736 28225 9 4 times a day Subcut aneous False Aspirin 325 mg tablet [generic] 325 By Mouth Twice daily For Anticoagulati on 325 09/25 Active 2023 91961 95197 1 Twice daily By Mouth False Ferrous sulfate 325 mg (65 mg iron) tablet [generic] 325 By Mouth Once daily For anemia 325 2023 Active 2023 36169 58707 5 Once daily By Mouth False Linezolid 600 mg tablet [generic] 600 mg By Mouth Every 12 hours For MRSA INFECTION L BKA 600 mg 08/25 Inactiv e 2023 26831 57830 1 Every 12 hours By Mouth False Cefpodoxime 200 mg tablet [generic] 400 mg By Mouth Twice daily For MRSA INFECTION L BKA 400 mg 08/25 Inactiv e 2023 82062 36771 0 Twice daily By Mouth False Coenzyme Q10 100 mg tablet [generic] 100 mg By Mouth Once daily For SUPP 100 mg 2023 Active 2023 15940 62952 0 Once daily By Mouth False Levothyroxi ne 50 mcg tablet [generic] 50mcg By Mouth Once daily For hypothyroidis m 50mcg 2023 Active 2023 82448 01435 0 Once daily By Mouth False One A Day Men Complete 240 mcg-25 mcg-300 mcg tablet 1 tab By Mouth Once daily For supplement 1 tab 2023 Active 2023 74324 80322 1 Once daily By Mouth False Cholecalcif adalberto (vitamin D3) 50 mcg (2,000 unit) tablet [generic] 1 TAB By Mouth Once daily For SUPP 1 TAB 2023 Active 2023 09696 35844 1 Once daily By Mouth False Cetirizine 10 mg tablet [generic] 1 TAB By Mouth At bedtime For Allergies 1 TAB 2023 Active 2023 99562 83565 0 At bedtime By Mouth False Timolol maleate 0.25 % eye drops [generic] 1 drop Both Eyes Twice daily For glaucoma 1 drop 2023 0000 0000 Active 2023 62160 72834 5 Twice daily Both Eyes False Alendronate 35 mg tablet [generic] 35mg By Mouth Every week For SIADH 35mg 08/31 Inactiv e 2023 06529 48408 5 Every week By Mouth False Lantus Solostar U-100 Insulin 100 unit/mL (3 mL) subcutaneou s pen 18 units Subcutaneous Every morning For DIABETES 18 units 08/25 Inactiv e 2023 30363 21902 0 Every morning Subcut aneous False Lantus Solostar U-100 Insulin 100 unit/mL (3 mL) subcutaneou s pen 18 units Subcutaneous Every morning For DIABETES 18 units 2023 Active 2023 76342 09340 0 Every morning Subcut aneous False Linezolid 600 mg tablet [generic] 600 mg By Mouth Every 12 hours For MRSA INFECTION L BKA 600 mg 08/28 Inactiv e 2023 18070 09750 1 Every 12 hours By Mouth False [...] order For Diabetes 08/31 Inactiv e 2023 71671 79025 9 4 times a day Subcut aneous False Cefpodoxime 200 mg tablet [generic] 400 mg By Mouth Twice daily For MRSA INFECTION L BKA 400 mg 08/28 Inactiv e 2023 22181 98554 0 Twice daily By Mouth False Brimonidine 0.1 % eye drops [generic] 1 drop Both Eyes Twice daily For glaucoma 1 drop 2023 Active 2023 76263 70143 0 Twice daily Both Eyes False Metoprolol succinate ER 50 mg tablet,exte nded release 24 hr [generic] 50 mg By Mouth Once daily HOLD FOR SBP <100, or pulse <60 For HTN 50 mg 2023 Active 2023 19100 48904 1 Once daily By Mouth False Amlodipine 2.5 mg tablet [generic] 2.5 mg By Mouth Once daily For HTN 2.5 mg 2023 Active 2023 46697 97205 5 Once daily By Mouth False Docusate sodium 100 mg capsule [generic] 100mg By Mouth Twice daily as needed For constipation HOLD FOR LOOSE STOOLS 100mg 2023 Active 2023 71461 36173 1 Twice daily as needed By Mouth False Atorvastati n 40 mg tablet [generic] 40mg By Mouth Once daily For HDL 40mg 08/26 Inactiv e 2023 83761 34505 5 Once daily By Mouth False Tylenol 325 mg tablet 2 tabs By Mouth Every 4 hours as needed For Pain DO NOT EXCEED 3000 MG APAP/24 Hours 2 tabs 2023 Active 2023 19999 30863 0 Every 4 hours as needed By Mouth False Tylenol 325 mg tablet 2 tabs By Mouth Every 4 hours as needed For Fever >100 DO NOT EXCEED 3000 MG APAP/24 Hours 2 tabs 2023 Active 2023 12287 35357 0 Every 4 hours as needed By Mouth False Dulcolax (bisacodyl) 10 mg rectal suppository One Suppository per rectum PRN if Milk of Magnisia ineffective. Give on day 5 of no BM 1 sup 2023 Active 2023 75237 85596 1 Daily as needed Rectal False Fleet Enema 19 gram-7 gram/118 mL Administer per rectum PRN one time if dulcolax suppository not effective. Give on day 6 of no BM 1 2023 Active 2023 70356 64935 6 Daily as needed Rectal False Dextrose 50 % in water (D50W) intravenous solution [generic] Dextrose 50% evonne 20-50 ml (slow push) Intravenous if Glucagon not effective after 15 minutes. CALL 911 for ED Evaluation. 50% evonne 2023 Active 2023 38338 64256 9 Intrav enous False Glucagon (HCl) Emergency Kit 1 mg solution for injection Administer Glucagon 1 mg Intramuscular if 15 minutes after GLucose Gel is administered Glucose remains less than 70 1 mg 2023 Active 2023 04354 82995 2 Intram uscula r False Glucose Gel 40 % oral gel [Dextrose] PRN If resident is unable to swallow (with or without symptoms) and Glucose results less than 70 give GLucose 40% Gel 1 tube orally - Recheck Glucose 15 minutes after administratio n. 1 tube 2023 Active 2023 78968 17740 8 By Mouth False Milk of Magnesia 400 mg/5 mL oral suspension [Magnesium hydroxide] PRN 30ml By Mouth Daily as needed for constipation one time daily if no BM, on day 4 of no BM (PRN refer to instructions) For Constipation 30 mL 2023 Active 2023 28567 63551 6 Daily as needed By Mouth False Atorvastati n 40 mg tablet [generic] 08/26 Inactiv e 2023 45479 75454 5 Atorvastati n 40 mg tablet [generic] 40mg By Mouth Once daily For HDL 40mg 2023 Active 2023 92490 86501 5 Once daily By Mouth False Insulin aspart (U-100) 100 unit/mL (3 mL) subcutaneou s pen [generic] 15 units Subcutaneous 1 time For dm 15 units 08/26 Inactiv e 2023 47842 51878 5 1 time Subcut aneous False Humalog KwikPen (U-100) Insulin 100 unit/mL subcutaneou s 15 units Subcutaneous 1 time For dm 15 units 08/27 Inactiv e 2023 46085 99564 9 1 time Subcut aneous False Linezolid 600 mg tablet [generic] 600 mg By Mouth Every 12 hours For MRSA INFECTION L BKA 600 mg 09/06 Inactiv e 2023 36817 30685 1 Every 12 hours By Mouth False Cefpodoxime 200 mg tablet [generic] 400 mg By Mouth Twice daily For MRSA INFECTION L BKA 400 mg 08/31 Inactiv e 2023 40930 48032 0 Twice daily By Mouth False Senna 8.6 mg tablet 8.6 mg By Mouth Once daily For Constipation 8.6 mg 09/07 Inactiv e 2023 39587 11367 1 Once daily By Mouth False Humalog [...] abnormalities . Per Carb 2023 Active 2023 38782 15819 9 4 times a day Subcut aneous False Alendronate 35 mg tablet [generic] 08/31 Inactiv e 2023 06305 90157 5 Alendronate 35 mg tablet [generic] 35mg By Mouth Every week For Osteoporosis 35mg 2023 Active 2023 96770 38006 5 Every week By Mouth False ProSource 10 gram-100 kcal/30 mL oral liquid 30 ml By Mouth Once daily For wound healing 30 ml 2023 Active 2023 67567 13826 2 Once daily By Mouth False Clotrimazol e 1 % topical cream [generic] 1 applicaiton Topical Twice daily For tinea, apply to groin rash after cleansing and throughouly drying. Can discontinue order 3 days after rash resolves. 1 applica stacy 09/08 Inactiv e 2023 86018 45413 0 Twice daily Topica l False Problems Code Description Start Date End Date Status D64.9 Anemia, unspecified 08/25/2024 Activ e I25.10 Atherosclerotic hear t disease of [place] coronary artery without angina pectoris 08/25/2024 Active E78.5 Hyperlipidemia, unspecified 08/25/2024 Active I10. Essential (primary) hypertension 08/25/2024 Active [...] Temperature SpO2 Blood Sugar Pulse Respirations 004 06294 8 67.00 mm[Hg] - Sitting 145.00 mm[Hg] - Sitting 98.50 Forehead Scan 96.00 % 81.00/ min 16.00/min 33350 004 37548 2 67.00 mm[Hg] - Sitting 145.00 mm[Hg] - Sitting 98.50 Tympanic 81.00/ min 16.00/min 60338 004 72509 5 56.00 mm[Hg] - Sitting 142.00 mm[Hg] - Sitting 136.40 NI 100.20 Tympanic 96.00 % 92.00/ min 18.00/min 91677 004 49679 6 16618 004 24503 4 143.00 mg/dL 53645 004 25246 0 97.80 Tympanic 75090 005 71983 7 60.00 mm[Hg] - Sitting 140.00 mm[Hg] - Sitting 98.00 Tympanic 84.00/ min 18.00/min 89201 005 77880 0 63.00 mm[Hg] - Sitting 141.00 mm[Hg] - Sitting 98.20 Tympanic 92.00 % 63.00/ min 16.00/min 75495 005 46936 8 69.00 mm[Hg] - Sitting 106.00 mm[Hg] - Sitting 97.20 Tympanic 56369 005 40150 7 69.00/ min 16.00/min 31529 005 62386 3 69.00 mm[Hg] - Sitting 106.00 mm[Hg] - Sitting 98.20 Tympanic 69.00/ min 16.00/min 10671 005 66945 1 367.00 mg/dL 66977 005 18639 2 97.20 Tympanic 42519 005 66552 4 97.20 Tympanic 71867 005 61679 0 69.00 mm[Hg] - Sitting 106.00 mm[Hg] - Sitting 69.00/ min 38264 005 78655 3 452.00 mg/dL 07545 005 89585 3 452.00 mg/dL 83479 005 11821 5 352.00 mg/dL 29794 005 80729 3 352.00 mg/dL 25164 005 39560 7 98.20 Tympanic 60510 005 08097 3 101.00 mg/dL 84735 005 8 101.00 mg/dL 78744 006 27516 4 66.00 mm[Hg] - Sitting 107.00 mm[Hg] - Sitting 98.00 Tympanic 66.00/ min 18.00/min 16274 006 18221 0 62.00 mm[Hg] - Sitting 162.00 mm[Hg] - Sitting 98.20 Tympanic 96.00 % 60.00/ min 16.00/min 00818 006 69885 4 62.00 mm[Hg] - Sitting 162.00 mm[Hg] - Sitting 98.00 Tympanic 70.00/ min 18.00/min 19097 006 79663 8 62.00 mm[Hg] - Sitting 162.00 mm[Hg] - Sitting 98.20 Tympanic 70.00/ min 18.00/min 73291 006 92353 2 66.00 mm[Hg] - Sitting 132.00 mm[Hg] - Sitting 98.60 Tympanic 74.00/ min 16.00/min 92212 006 63193 5 159.00 mg/dL 30587 006 36646 1 159.00 mg/dL 88451 006 94003 8 98.00 Tympanic 53781 006 66602 2 62.00 mm[Hg] - Sitting 162.00 mm[Hg] - Sitting 70.00/ min 41417 006 62519 7 264.00 mg/dL 07362 006 54310 7 264.00 mg/dL 58694 006 38975 4 196.00 mg/dL 44364 006 74608 3 98.20 Tympanic 99189 006 04922 6 271.00 mg/dL 25572 007 34952 3 97.20 Tympanic 20518 007 75198 2 63.00 mm[Hg] - Sitting 132.00 mm[Hg] - Sitting 98.50 Tympanic 94.00 % 66.00/ min 16.00/min 38939 007 60303 5 188.00 mg/dL 47066 007 59282 2 188.00 mg/dL 92722 007 90896 2 188.00 mg/dL 62126 007 76703 7 97.20 Tympanic 87852 007 24351 6 97.20 Tympanic 45407 007 86716 5 67.00 mm[Hg] - Sitting 152.00 mm[Hg] - Sitting 68.00/ min 63721 007 35090 0 141.00 mg/dL 74043 007 93356 3 141.00 mg/dL 07257 007 72768 1 366.00 mg/dL 64182 007 41212 7 366.00 mg/dL 06388 007 63866 7 98.00 Tympanic 31748 007 62998 6 324.00 mg/dL 78503 007 06567 3 98.00 Tympanic 90014 007 69984 7 324.00 mg/dL 20022 008 25021 0 98.00 Tympanic 68253 008 08660 2 97.90 Tympanic 02377 008 89593 0 98.20 Tympanic 91674 008 45233 0 73.00 mm[Hg] - Sitting 156.00 mm[Hg] - Sitting 98.60 Tympanic 99.00 % 66.00/ min 20.00/min 09949 008 49423 5 137.00 mg/dL 48035 008 42207 7 137.00 mg/dL 05726 008 01850 2 97.90 Tympanic 60859 008 64069 1 137.00 mg/dL 11990 008 47715 8 97.90 Tympanic 15872 008 71888 5 67.00 mm[Hg] - Sitting 124.00 /min 48195 008 32577 6 212.00 mg/dL 99028 008 99047 6 212.00 mg/dL 92168 008 12394 9 317.00 mg/dL 83779 008 03806 4 317.00 mg/dL 09851 008 57061 8 252.00 mg/dL 70619 008 15674 0 98.70 Tympanic 66269 008 87545 7 252.00 mg/dL 35634 008 26044 3 98.70 Tympanic 51810 009 51727 9 98.70 Tympanic 19247 009 33707 3 98.20 Tympanic 66810 009 53642 5 98.40 Tympanic 84591 009 11961 5 57.00 mm[Hg] - Sitting 129.00 mm[Hg] - Sitting 98.30 Tympanic 97.00 % 65.00/ min 18.00/min 66030 009 59991 1 255.00 mg/dL 33257 009 64258 4 255.00 mg/dL 70725 009 56828 5 98.20 Tympanic 26786 009 78533 0 255.00 mg/dL 41199 009 50221 0 98.20 Tympanic 78863 009 21390 4 63.00 mm[Hg] - Lying Down 102.00 mm[Hg] - Lying Down 58.00/ min 65160 009 14198 0 167.00 mg/dL 46662 009 42175 1 167.00 mg/dL 19097 009 22628 2 164.00 mg/dL 11612 009 02332 1 164.00 mg/dL 53511 009 69292 5 208.00 mg/dL 30375 010 32898 3 98.40 Tympanic 53792 010 19560 5 98.40 Tympanic 88457 010 36737 7 66 [place] [address] 010 59265 4 60.00 mm[Hg] - Sitting 143.00 mm[Hg] - Sitting 98.90 Tympanic 98.00 % 67.00/ min 18.00/min 03534 010 22915 2 214.00 mg/dL 47062 010 12616 0 214.00 mg/dL 80643 010 64275 7 214.00 mg/dL 98655 010 16223 6 64.00 mm[Hg] - Sitting 110.00 mm[Hg] - Sitting 72.00/ min 35262 010 84071 7 98.40 Tympanic 75171 010 65845 1 212.00 mg/dL 98526 010 41721 2 212.00 mg/dL 71549 010 74134 1 115.00 mg/dL 01644 010 60476 0 115.00 mg/dL 97807 010 31161 4 98.50 Tympanic 08607 010 79988 4 150.00 mg/dL 26511 010 12188 0 150.00 mg/dL 27813 011 37317 9 98.60 Tympanic 93030 011 70047 1 67.00 mm[Hg] - Sitting 144.00 mm[Hg] - Sitting 98.20 Tympanic 98.00 % 61.00/ min 18.00/min 35878 011 55360 7 290.00 mg/dL 14766 011 45677 2 290.00 mg/dL 68321 011 86000 2 290.00 mg/dL 18563 011 34624 7 54.00 mm[Hg] - Sitting 136.00 mm[Hg] - Sitting 101.00 /min 93720 011 80782 7 98.60 Tympanic 96917 011 99094 5 240.00 mg/dL 48984 011 88606 1 240.00 mg/dL 07313 011 90967 1 156.00 mg/dL 34567 011 57764 9 156.00 mg/dL 17113 011 23524 0 97.80 Tympanic 89947 011 90821 8 343.00 mg/dL 80163 012 58006 9 97.90 Tympanic 77381 012 53480 2 466.00 mg/dL 73063 012 67171 1 466.00 mg/dL 46461 012 90264 3 466.00 mg/dL 94894 012 65965 8 97.90 Tympanic 56978 012 57964 8 56.00 mm[Hg] - Sitting 96.00 mm[Hg] - Sitting 61.00/ min 22273 012 43789 7 350.00 mg/dL 12564 012 13754 5 350.00 mg/dL 59111 012 91852 6 111.00 mg/dL 70228 012 27882 0 111.00 mg/dL 35919 012 31253 5 98.40 Tympanic 50079 012 66922 6 114.00 mg/dL 42463 013 71403 4 74.00 mm[Hg] - Sitting 112.00 mm[Hg] - Sitting 98.40 Tympanic 70.00/ min 18.00/min 57881 013 07827 8 244.00 mg/dL 99081 013 49798 7 244.00 mg/dL 25858 013 32097 1 244.00 mg/dL 49735 013 62409 1 98.20 Tympanic 23214 013 77895 7 72.00 mm[Hg] - Sitting 119.00 mm[Hg] - Sitting 76.00/ min 47607 013 12358 7 253.00 mg/dL 42717 013 48030 4 253.00 mg/dL 74123 013 10369 9 156.00 mg/dL 40214 013 21155 5 156.00 mg/dL 56916 013 51300 4 97.90 Tympanic 59012 013 41598 5 189.00 mg/dL 40849 014 13838 9 98.10 Tympanic 90447 014 34928 0 61.00 mm[Hg] - Sitting 139.00 mm[Hg] - Sitting 98.20 Forehead Scan 99.00 % 66.00/ min 18.00/min 86237 014 85846 3 169.00 mg/dL 12844 014 81043 3 98.10 Tympanic 99408 014 15859 3 75.00 mm[Hg] - Sitting 121.00 mm[Hg] - Sitting 71.00/ min 93998 014 34107 9 221.00 mg/dL 01726 014 02767 9 62.00 mg/dL 66900 014 88927 5 62.00 mg/dL 67158 014 99636 8 156.00 mg/dL 76213 014 91378 6 98.10 Tympanic 61522 014 27931 7 156.00 mg/dL 87333 015 01834 4 76604 015 64260 7 62.00 mm[Hg] - Sitting 142.00 mm[Hg] - Sitting 98.20 Tympanic 99.00 % 67.00/ min 18.00/min 81376 015 57115 9 120.00 mg/dL 82762 015 36926 7 98.00 Tympanic 00961 015 68802 2 82.00 mm[Hg] - Sitting 119.00 /min 78070 015 94363 9 110.00 mg/dL 71823 015 56173 6 104.00 mg/dL 27120 015 11687 0 100.00 mg/dL 24695 015 78731 2 98.10 Tympanic 82803 015 13674 6 100.00 mg/dL 59952 016 63939 2 67.00 mm[Hg] - Sitting 147.00 mm[Hg] - Sitting 99.00 Tympanic 99.00 % 78.00/ min 20.00/min 58642 016 68281 5 158.00 mg/dL 76705 016 49447 1 158.00 mg/dL 76488 016 57582 2 158.00 mg/dL 01821 016 79642 0 66.00 mm[Hg] - Sitting 121.00 mm[Hg] - Sitting 74.00/ min 45704 016 62424 1 97.00 mg/dL 85858 016 10346 5 97.00 mg/dL 97591 016 39408 4 78.00 mg/dL 01778 016 98122 6 78.00 mg/dL 14336 016 10149 5 248.00 mg/dL 46134 016 91965 8 248.00 mg/dL 64375 017 63033 3 54.00 mm[Hg] - Sitting 142.00 mm[Hg] - Sitting 98.30 Tympanic 99.00 % 76.00/ min 18.00/min 60300 017 21614 4 267.00 mg/dL 19654 017 23245 6 73.00 mm[Hg] - Sitting 109.00 mm[Hg] - Sitting 70.00/ min 88759 017 37991 1 184.00 mg/dL 84242 017 06455 5 184.00 mg/dL 08994 017 49202 9 248.00 mg/dL 16972 017 37404 8 299.00 mg/dL 79381 017 71305 3 299.00 mg/dL 07166 018 19852 7 50.00 mm[Hg] - Sitting 125.00 mm[Hg] - Sitting 98.30 Tympanic 98.00 % 76.00/ min 16.00/min 23009 018 14437 3 168.00 mg/dL 61391 018 89698 0 75.00 mm[Hg] - Sitting 121.00 mm[Hg] - Sitting 70.00/ min 62919 018 32826 7 264.00 mg/dL 88009 018 65907 6 132.00 mg/dL 17655 018 22678 6 154.00 mg/dL 85417 018 67702 6 154.00 mg/dL 04013 019 75750 4 63.00 mm[Hg] - Sitting 147.00 mm[Hg] - Sitting 98.50 Tympanic 99.00 % 69.00/ min 18.00/min 10616 019 26103 9 159.00 mg/dL 28826 019 86017 8 73.00 mm[Hg] - Sitting 110.00 mm[Hg] - Sitting 72.00/ min 08091 019 10267 4 191.00 mg/dL 69911 019 93845 8 70.00 mg/dL 77289 019 74589 4 70.00 mg/dL 62821 019 14488 6 198.00 mg/dL 32555 019 84262 0 198.00 mg/dL 06915 020 22513 2 59.00 mm[Hg] - Sitting 131.00 mm[Hg] - Sitting 98.90 Tympanic 99.00 % 69.00/ min 18.00/min 86539 020 00761 7 299.00 mg/dL 84493 020 31362 0 62.00 mm[Hg] - Sitting 132.00 mm[Hg] - Sitting 68.00/ min 53387 020 32301 3 299.00 mg/dL 44845 020 61377 3 299.00 mg/dL 18417 020 03713 9 220.00 mg/dL 38088 020 07776 1 220.00 mg/dL 52577 020 65030 1 270.00 mg/dL 18773 020 16951 4 270.00 mg/dL 59396 020 19007 9 143.00 mg/dL 69969 020 51778 4 143.00 mg/dL 03674 021 82199 0 59.00 mm[Hg] - Sitting 121.00 mm[Hg] - Sitting 98.40 Forehead Scan 98.00 % 70.00/ min 16.00/min 32571 021 40385 0 140.00 mg/dL 43099 021 34876 0 67.00 mm[Hg] - Sitting 130.00 mm[Hg] - Sitting 68.00/ min 54702 021 56961 8 140.00 mg/dL 96176 021 99099 6 140.00 mg/dL 73397 021 45970 8 156.00 mg/dL 10349 021 40700 1 156.00 mg/dL 54568 021 49944 5 146.00 mg/dL 31201 021 72443 4 146.00 mg/dL 75502 021 15334 5 183.00 mg/dL 23440 021 74495 2 183.00 mg/dL 49972 022 77820 3 03595 022 19541 1 43.00 mm[Hg] - Sitting 113.00 mm[Hg] - Sitting 97.80 Tympanic 97.00 % 64.00/ min 18.00/min 13179 022 40848 6 270.00 mg/dL 37245 022 21792 5 68.00 mm[Hg] - Sitting 122.00 mm[Hg] - Sitting 67.00/ min 65630 022 46812 9 270.00 mg/dL 32377 022 87187 4 270.00 mg/dL 51718 022 36591 4 207.00 mg/dL 78376 022 41040 8 207.00 mg/dL 96233 022 52140 9 217.00 mg/dL 64422 022 80449 2 217.00 mg/dL 90942 022 74906 0 192.00 mg/dL 18144 022 07487 9 192.00 mg/dL Immunizations Vaccine Date Status COVID-19 09/20/2023 Completed Other 10/08/2023 Completed Shingles 05/27/2011 Completed Tetanus 04/13/2022 Completed TDaP 04/13/2022 Completed Shingles 2 10/05/2018 Completed
--- OUTSIDE RECORDS SUMMARY | 2024-10-03 11:04 | External Medical Summary | Continuity Of Care Document ---
Author Name Unknown Address [address] [address] Organization [facility] () Care Team Providers Care Profiling Machine Set Up Operator Name Role Phone DO Machado Amy Primary Care Provider [phone] Allergies Allergy Reaction Start Date End Date [...] 3 0.1 mL 08/29 Inactiv e 2023 22716 64308 0 1 time Intrad ermal False Tubersol 5 tub. unit/0.1 mL intradermal injection solution [Tuberculin PPD] 0.1mL Intradermal 1 time For PPD 2nd Step Give 2nd Step PPD Day 1 and Read results Day 3 (schedule 7 days after 1st READ) 0.1mL 09/08 Inactiv e 2023 09324 54575 0 1 time Intrad ermal False Humalog [...] order For Diabetes 08/25 Inactiv e 2023 35339 62311 9 4 times a day Subcut aneous False Aspirin 325 mg tablet [generic] 325 By Mouth Twice daily For Anticoagulati on 325 09/25 Active 2023 25668 50277 1 Twice daily By Mouth False Ferrous sulfate 325 mg (65 mg iron) tablet [generic] 325 By Mouth Once daily For anemia 325 2023 Active 2023 05530 48098 5 Once daily By Mouth False Linezolid 600 mg tablet [generic] 600 mg By Mouth Every 12 hours For MRSA INFECTION L BKA 600 mg 08/25 Inactiv e 2023 53037 73223 1 Every 12 hours By Mouth False Cefpodoxime 200 mg tablet [generic] 400 mg By Mouth Twice daily For MRSA INFECTION L BKA 400 mg 08/25 Inactiv e 2023 87861 27438 0 Twice daily By Mouth False Coenzyme Q10 100 mg tablet [generic] 100 mg By Mouth Once daily For SUPP 100 mg 2023 Active 2023 17276 65863 0 Once daily By Mouth False Levothyroxi ne 50 mcg tablet [generic] 50mcg By Mouth Once daily For hypothyroidis m 50mcg 2023 Active 2023 51268 90342 0 Once daily By Mouth False One A Day Men Complete 240 mcg-25 mcg-300 mcg tablet 1 tab By Mouth Once daily For supplement 1 tab 2023 Active 2023 38216 15156 1 Once daily By Mouth False Cholecalcif adalberto (vitamin D3) 50 mcg (2,000 unit) tablet [generic] 1 TAB By Mouth Once daily For SUPP 1 TAB 2023 Active 2023 51468 02808 1 Once daily By Mouth False Cetirizine 10 mg tablet [generic] 1 TAB By Mouth At bedtime For Allergies 1 TAB 2023 Active 2023 99436 01049 0 At bedtime By Mouth False Timolol maleate 0.25 % eye drops [generic] 1 drop Both Eyes Twice daily For glaucoma 1 drop 2023 0000 0000 Active 2023 12832 60720 5 Twice daily Both Eyes False Alendronate 35 mg tablet [generic] 35mg By Mouth Every week For SIADH 35mg 08/31 Inactiv e 2023 32017 25034 5 Every week By Mouth False Lantus Solostar U-100 Insulin 100 unit/mL (3 mL) subcutaneou s pen 18 units Subcutaneous Every morning For DIABETES 18 units 08/25 Inactiv e 2023 58264 87232 0 Every morning Subcut aneous False Lantus Solostar U-100 Insulin 100 unit/mL (3 mL) subcutaneou s pen 18 units Subcutaneous Every morning For DIABETES 18 units 2023 Active 2023 46800 62406 0 Every morning Subcut aneous False Linezolid 600 mg tablet [generic] 600 mg By Mouth Every 12 hours For MRSA INFECTION L BKA 600 mg 08/28 Inactiv e 2023 06860 19896 1 Every 12 hours By Mouth False [...] order For Diabetes 08/31 Inactiv e 2023 59509 49998 9 4 times a day Subcut aneous False Cefpodoxime 200 mg tablet [generic] 400 mg By Mouth Twice daily For MRSA INFECTION L BKA 400 mg 08/28 Inactiv e 2023 18796 74948 0 Twice daily By Mouth False Brimonidine 0.1 % eye drops [generic] 1 drop Both Eyes Twice daily For glaucoma 1 drop 2023 Active 2023 33387 56932 0 Twice daily Both Eyes False Metoprolol succinate ER 50 mg tablet,exte nded release 24 hr [generic] 50 mg By Mouth Once daily HOLD FOR SBP <100, or pulse <60 For HTN 50 mg 2023 Active 2023 59947 88415 1 Once daily By Mouth False Amlodipine 2.5 mg tablet [generic] 2.5 mg By Mouth Once daily For HTN 2.5 mg 2023 Active 2023 16499 76936 5 Once daily By Mouth False Docusate sodium 100 mg capsule [generic] 100mg By Mouth Twice daily as needed For constipation HOLD FOR LOOSE STOOLS 100mg 2023 Active 2023 95396 52638 1 Twice daily as needed By Mouth False Atorvastati n 40 mg tablet [generic] 40mg By Mouth Once daily For HDL 40mg 08/26 Inactiv e 2023 12551 67383 5 Once daily By Mouth False Tylenol 325 mg tablet 2 tabs By Mouth Every 4 hours as needed For Pain DO NOT EXCEED 3000 MG APAP/24 Hours 2 tabs 2023 Active 2023 52908 13853 0 Every 4 hours as needed By Mouth False Tylenol 325 mg tablet 2 tabs By Mouth Every 4 hours as needed For Fever >100 DO NOT EXCEED 3000 MG APAP/24 Hours 2 tabs 2023 Active 2023 16752 21652 0 Every 4 hours as needed By Mouth False Dulcolax (bisacodyl) 10 mg rectal suppository One Suppository per rectum PRN if Milk of Magnisia ineffective. Give on day 5 of no BM 1 sup 2023 Active 2023 03589 69224 1 Daily as needed Rectal False Fleet Enema 19 gram-7 gram/118 mL Administer per rectum PRN one time if dulcolax suppository not effective. Give on day 6 of no BM 1 2023 Active 2023 85140 06960 6 Daily as needed Rectal False Dextrose 50 % in water (D50W) intravenous solution [generic] Dextrose 50% evonne 20-50 ml (slow push) Intravenous if Glucagon not effective after 15 minutes. CALL 911 for ED Evaluation. 50% evonne 2023 Active 2023 33142 20108 9 Intrav enous False Glucagon (HCl) Emergency Kit 1 mg solution for injection Administer Glucagon 1 mg Intramuscular if 15 minutes after GLucose Gel is administered Glucose remains less than 70 1 mg 2023 Active 2023 12696 81230 2 Intram uscula r False Glucose Gel 40 % oral gel [Dextrose] PRN If resident is unable to swallow (with or without symptoms) and Glucose results less than 70 give GLucose 40% Gel 1 tube orally - Recheck Glucose 15 minutes after administratio n. 1 tube 2023 Active 2023 09646 72632 8 By Mouth False Milk of Magnesia 400 mg/5 mL oral suspension [Magnesium hydroxide] PRN 30ml By Mouth Daily as needed for constipation one time daily if no BM, on day 4 of no BM (PRN refer to instructions) For Constipation 30 mL 2023 Active 2023 87157 81176 6 Daily as needed By Mouth False Atorvastati n 40 mg tablet [generic] 08/26 Inactiv e 2023 67581 40005 5 Atorvastati n 40 mg tablet [generic] 40mg By Mouth Once daily For HDL 40mg 2023 Active 2023 01432 01051 5 Once daily By Mouth False Insulin aspart (U-100) 100 unit/mL (3 mL) subcutaneou s pen [generic] 15 units Subcutaneous 1 time For dm 15 units 08/26 Inactiv e 2023 64042 65540 5 1 time Subcut aneous False Humalog KwikPen (U-100) Insulin 100 unit/mL subcutaneou s 15 units Subcutaneous 1 time For dm 15 units 08/27 Inactiv e 2023 88081 00059 9 1 time Subcut aneous False Linezolid 600 mg tablet [generic] 600 mg By Mouth Every 12 hours For MRSA INFECTION L BKA 600 mg 09/06 Inactiv e 2023 90504 52906 1 Every 12 hours By Mouth False Cefpodoxime 200 mg tablet [generic] 400 mg By Mouth Twice daily For MRSA INFECTION L BKA 400 mg 08/31 Inactiv e 2023 59230 15537 0 Twice daily By Mouth False Senna 8.6 mg tablet 8.6 mg By Mouth Once daily For Constipation 8.6 mg 09/07 Inactiv e 2023 00334 47055 1 Once daily By Mouth False Humalog [...] abnormalities . Per Carb 2023 Active 2023 97587 14058 9 4 times a day Subcut aneous False Alendronate 35 mg tablet [generic] 08/31 Inactiv e 2023 37059 46267 5 Alendronate 35 mg tablet [generic] 35mg By Mouth Every week For Osteoporosis 35mg 2023 Active 2023 76988 23928 5 Every week By Mouth False ProSource 10 gram-100 kcal/30 mL oral liquid 30 ml By Mouth Once daily For wound healing 30 ml 2023 Active 2023 99563 79768 2 Once daily By Mouth False Clotrimazol e 1 % topical cream [generic] 1 applicaiton Topical Twice daily For tinea, apply to groin rash after cleansing and throughouly drying. Can discontinue order 3 days after rash resolves. 1 applica stacy 09/08 Inactiv e 2023 50268 45067 0 Twice daily Topica l False MAGIC MIX 1:1:1:1 : ZINC OXIDE EXTERNAL OINTMENT 40%; HYDROCOTISO NE EXTERNAL CREAM 1%; NYSTATIN EXTERNAL CREAM 011700J/GM; SILVADENE CREAM 1% Every shift Apply topically to MASD area on coccyx/buttoc ks each shift and as needed for incontinence care For MASD on coccyx layer 2023 Active 2023 Every shift Topica l False Senna 8.6 mg tablet 8.6 mg By Mouth Once daily For Constipation 8.6 mg 09/07 Inactiv e 2023 17560 92502 1 Once daily By Mouth False Senna 8.6 mg tablet 8.6 mg By Mouth Once daily As Needed For Constipation 8.6 mg 2023 Active 2023 42175 57316 1 Once daily By Mouth False BD AutoShield Duo Pen Needle 30 gauge x 3/16in 1 pen needle Subcutaneous 4 times a day For DM 1 pen needle 2023 Active 2023 22769 21113 5 4 times a day Subcut aneous False Hydrocortis one 1 % topical ointment [generic] 1 application Topical Twice daily For tinea *mix 1:1 with clotrimazole cream and apply to clean/dry groin rash 1 applica peggy 09/19 Active 2023 88425 73849 6 Twice daily Topica l False Clotrimazol e 1 % topical cream [generic] 1 applicaiton Topical Twice daily For tinea, apply to groin rash after cleansing and throughouly drying. MIX WITH HYDROCORTISON E Can discontinue order 3 days after rash resolves. 1 applica stacy 2023 Active 2023 69146 45591 0 Twice daily Topica l False Humalog KwikPen (U-100) Insulin 100 unit/mL subcutaneou s 10/10/ 2024 10/10 /2024 Inactiv e 2023 35570 68901 9 MediHoney HCS 4 1/2in X 4 1/2in bandage Cleanse area with NSS, apply one medihoney hydrocolloid dressing, non adherent dressing, kerlix secure with paper tape daily. 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 08/25/2024 Active [...] weight Temperature SpO2 Blood Sugar Pulse Respirations 79792 8 67.00 mm[Hg] - Sitting 145.00 mm[Hg] - Sitting 98.50 Forehead Scan 96.00 % 81.00/ min 16.00/min 51358 004 91304 2 67.00 mm[Hg] - Sitting 145.00 mm[Hg] - Sitting 98.50 Tympanic 81.00/ min 16.00/min 63966 004 96740 5 56.00 mm[Hg] - Sitting 142.00 mm[Hg] - Sitting 136.40 NI 100.20 Tympanic 96.00 % 92.00/ min 18.00/min 15679 004 30466 6 12134 004 31673 4 143.00 mg/dL 53001 004 64568 0 97.80 Tympanic 84595 005 28579 7 60.00 mm[Hg] - Sitting 140.00 mm[Hg] - Sitting 98.00 Tympanic 84.00/ min 18.00/min 75813 005 39415 0 63.00 mm[Hg] - Sitting 141.00 mm[Hg] - Sitting 98.20 Tympanic 92.00 % 63.00/ min 16.00/min 64484 005 64529 8 69.00 mm[Hg] - Sitting 106.00 mm[Hg] - Sitting 97.20 Tympanic 16236 005 09258 7 69.00/ min 16.00/min 30660 005 92528 3 69.00 mm[Hg] - Sitting 106.00 mm[Hg] - Sitting 98.20 Tympanic 69.00/ min 16.00/min 46082 005 94190 1 367.00 mg/dL 69781 005 01262 2 97.20 Tympanic 10820 005 61624 4 97.20 Tympanic 90903 005 91301 0 69.00 mm[Hg] - Sitting 106.00 mm[Hg] - Sitting 69.00/ min 39154 005 43155 3 452.00 mg/dL 65452 005 86953 3 452.00 mg/dL 59058 005 35004 5 352.00 mg/dL 23441 005 13215 3 352.00 mg/dL 08861 005 85739 7 98.20 Tympanic 25798 005 09466 3 101.00 mg/dL 84227 005 8 101.00 mg/dL 93633 006 58360 4 66.00 mm[Hg] - Sitting 107.00 mm[Hg] - Sitting 98.00 Tympanic 66.00/ min 18.00/min 92406 006 34950 0 62.00 mm[Hg] - Sitting 162.00 mm[Hg] - Sitting 98.20 Tympanic 96.00 % 60.00/ min 16.00/min 03391 006 20233 4 62.00 mm[Hg] - Sitting 162.00 mm[Hg] - Sitting 98.00 Tympanic 70.00/ min 18.00/min 23357 006 81986 8 62.00 mm[Hg] - Sitting 162.00 mm[Hg] - Sitting 98.20 Tympanic 70.00/ min 18.00/min 64771 006 62815 2 66.00 mm[Hg] - Sitting 132.00 mm[Hg] - Sitting 98.60 Tympanic 74.00/ min 16.00/min 41845 006 81732 5 159.00 mg/dL 84832 006 76356 1 159.00 mg/dL 77013 006 26247 8 98.00 Tympanic 53261 006 81538 2 62.00 mm[Hg] - Sitting 162.00 mm[Hg] - Sitting 70.00/ min 81546 006 83323 7 264.00 mg/dL 32056 006 13522 7 264.00 mg/dL 26879 006 23559 4 196.00 mg/dL 87545 006 18449 3 98.20 Tympanic 27697 006 97986 6 271.00 mg/dL 02806 007 82446 3 97.20 Tympanic 47208 007 06811 2 63.00 mm[Hg] - Sitting 132.00 mm[Hg] - Sitting 98.50 Tympanic 94.00 % 66.00/ min 16.00/min 78469 007 04906 5 188.00 mg/dL 01352 007 47785 2 188.00 mg/dL 92390 007 84763 2 188.00 mg/dL 00205 007 31743 7 97.20 Tympanic 40558 007 44797 6 97.20 Tympanic 31144 007 04193 5 67.00 mm[Hg] - Sitting 152.00 mm[Hg] - Sitting 68.00/ min 35040 007 97337 0 141.00 mg/dL 98239 007 49639 3 141.00 mg/dL 38331 007 28835 1 366.00 mg/dL 16257 007 03517 7 366.00 mg/dL 78024 007 69226 7 98.00 Tympanic 11717 007 17808 6 324.00 mg/dL 90981 007 15865 3 98.00 Tympanic 01456 007 67732 7 324.00 mg/dL 16042 008 81474 0 98.00 Tympanic 85349 008 99504 2 97.90 Tympanic 09745 008 97950 0 98.20 Tympanic 40521 008 86909 0 73.00 mm[Hg] - Sitting 156.00 mm[Hg] - Sitting 98.60 Tympanic 99.00 % 66.00/ min 20.00/min 98578 008 63677 5 137.00 mg/dL 15595 008 75501 7 137.00 mg/dL 09976 008 39939 2 97.90 Tympanic 36345 008 49191 1 137.00 mg/dL 74546 008 90817 8 97.90 Tympanic 53197 008 06217 5 67.00 mm[Hg] - Sitting 124.00 /min 66768 008 53415 6 212.00 mg/dL 37443 008 98833 6 212.00 mg/dL 63402 008 27125 9 317.00 mg/dL 01723 008 25001 4 317.00 mg/dL 64657 008 77618 8 252.00 mg/dL 72153 008 74496 0 98.70 Tympanic 76766 008 36888 7 252.00 mg/dL 12872 008 99589 3 98.70 Tympanic 83322 009 15878 9 98.70 Tympanic 56713 009 85397 3 98.20 Tympanic 52139 009 06967 5 98.40 Tympanic 06638 009 43544 5 57.00 mm[Hg] - Sitting 129.00 mm[Hg] - Sitting 98.30 Tympanic 97.00 % 65.00/ min 18.00/min 05337 009 76415 1 255.00 mg/dL 83409 009 94600 4 255.00 mg/dL 98930 009 96858 5 98.20 Tympanic 61579 009 59144 0 255.00 mg/dL 74196 009 35220 0 98.20 Tympanic 22799 009 34355 4 63.00 mm[Hg] - Lying Down 102.00 mm[Hg] - Lying Down 58.00/ min 70114 009 67968 0 167.00 mg/dL 34193 009 67276 1 167.00 mg/dL 19846 009 86839 2 164.00 mg/dL 87210 009 38994 1 164.00 mg/dL 02249 009 45995 5 208.00 mg/dL 45650 010 37234 3 98.40 Tympanic 19532 010 21348 5 98.40 Tympanic 42344 010 37876 7 66 [place] [address] 010 88260 4 60.00 mm[Hg] - Sitting 143.00 mm[Hg] - Sitting 98.90 Tympanic 98.00 % 67.00/ min 18.00/min 43702 010 36921 2 214.00 mg/dL 83453 010 81901 0 214.00 mg/dL 32348 010 01306 7 214.00 mg/dL 42283 010 53187 6 64.00 mm[Hg] - Sitting 110.00 mm[Hg] - Sitting 72.00/ min 28676 010 46849 7 98.40 Tympanic 70837 010 82356 1 212.00 mg/dL 96468 010 74193 2 212.00 mg/dL 55440 010 72037 1 115.00 mg/dL 62840 010 57554 0 115.00 mg/dL 37365 010 36941 4 98.50 Tympanic 88046 010 12411 4 150.00 mg/dL 35521 010 46509 0 150.00 mg/dL 66026 011 61713 9 98.60 Tympanic 70498 011 63092 1 67.00 mm[Hg] - Sitting 144.00 mm[Hg] - Sitting 98.20 Tympanic 98.00 % 61.00/ min 18.00/min 05047 011 68715 7 290.00 mg/dL 15445 011 88554 2 290.00 mg/dL 79534 011 49055 2 290.00 mg/dL 73376 011 50731 7 54.00 mm[Hg] - Sitting 136.00 mm[Hg] - Sitting 101.00 /min 44116 011 61147 7 98.60 Tympanic 92008 011 85021 5 240.00 mg/dL 39183 011 10688 1 240.00 mg/dL 92308 011 71021 1 156.00 mg/dL 45001 011 49618 9 156.00 mg/dL 54298 011 73313 0 97.80 Tympanic 06208 011 58507 8 343.00 mg/dL 55531 012 38644 9 97.90 Tympanic 19920 012 75791 2 466.00 mg/dL 77020 012 43447 1 466.00 mg/dL 16368 012 90745 3 466.00 mg/dL 28698 012 25297 8 97.90 Tympanic 57805 012 07687 8 56.00 mm[Hg] - Sitting 96.00 mm[Hg] - Sitting 61.00/ min 83275 012 52879 7 350.00 mg/dL 07154 012 14693 5 350.00 mg/dL 14097 012 28499 6 111.00 mg/dL 81870 012 64418 0 111.00 mg/dL 36944 012 36469 5 98.40 Tympanic 25554 012 41677 6 114.00 mg/dL 14457 013 57567 4 74.00 mm[Hg] - Sitting 112.00 mm[Hg] - Sitting 98.40 Tympanic 70.00/ min 18.00/min 44227 013 76221 8 244.00 mg/dL 25456 013 04507 7 244.00 mg/dL 37342 013 58028 1 244.00 mg/dL 05562 013 45644 1 98.20 Tympanic 00205 013 19848 7 72.00 mm[Hg] - Sitting 119.00 mm[Hg] - Sitting 76.00/ min 30058 013 70192 7 253.00 mg/dL 68764 013 09452 4 253.00 mg/dL 65024 013 39522 9 156.00 mg/dL 79630 013 13196 5 156.00 mg/dL 15190 013 08040 4 97.90 Tympanic 05715 013 21211 5 189.00 mg/dL 96735 014 77484 9 98.10 Tympanic 31869 014 42883 0 61.00 mm[Hg] - Sitting 139.00 mm[Hg] - Sitting 98.20 Forehead Scan 99.00 % 66.00/ min 18.00/min 98461 014 64089 3 169.00 mg/dL 11168 014 66256 3 98.10 Tympanic 30206 014 65511 3 75.00 mm[Hg] - Sitting 121.00 mm[Hg] - Sitting 71.00/ min 47478 014 36571 9 221.00 mg/dL 75634 014 19447 9 62.00 mg/dL 41868 014 46814 5 62.00 mg/dL 03719 014 48662 8 156.00 mg/dL 15557 014 71324 6 98.10 Tympanic 54033 014 84556 7 156.00 mg/dL 88661 015 41134 4 75460 015 64089 7 62.00 mm[Hg] - Sitting 142.00 mm[Hg] - Sitting 98.20 Tympanic 99.00 % 67.00/ min 18.00/min 36479 015 64674 9 120.00 mg/dL 48940 015 93703 7 98.00 Tympanic 51366 015 72516 2 82.00 mm[Hg] - Sitting 119.00 /min 98579 015 78330 9 110.00 mg/dL 99067 015 44875 6 104.00 mg/dL 48268 015 35362 0 100.00 mg/dL 19313 015 25363 2 98.10 Tympanic 17182 015 36181 6 100.00 mg/dL 81829 016 22331 2 67.00 mm[Hg] - Sitting 147.00 mm[Hg] - Sitting 99.00 Tympanic 99.00 % 78.00/ min 20.00/min 39984 016 30275 5 158.00 mg/dL 25317 016 64236 1 158.00 mg/dL 02580 016 58538 2 158.00 mg/dL 21245 016 10539 0 66.00 mm[Hg] - Sitting 121.00 mm[Hg] - Sitting 74.00/ min 01212 016 40809 1 97.00 mg/dL 30717 016 61334 5 97.00 mg/dL 68920 016 61239 4 78.00 mg/dL 28032 016 75186 6 78.00 mg/dL 47256 016 95906 5 248.00 mg/dL 11749 016 43626 8 248.00 mg/dL 69286 017 02445 3 54.00 mm[Hg] - Sitting 142.00 mm[Hg] - Sitting 98.30 Tympanic 99.00 % 76.00/ min 18.00/min 37934 017 18989 4 267.00 mg/dL 39043 017 59734 6 73.00 mm[Hg] - Sitting 109.00 mm[Hg] - Sitting 70.00/ min 21642 017 61085 1 184.00 mg/dL 94341 017 52047 5 184.00 mg/dL 35425 017 93365 9 248.00 mg/dL 99274 017 53282 8 299.00 mg/dL 52305 017 74017 3 299.00 mg/dL 34700 018 44285 7 50.00 mm[Hg] - Sitting 125.00 mm[Hg] - Sitting 98.30 Tympanic 98.00 % 76.00/ min 16.00/min 77386 018 39036 3 168.00 mg/dL 60721 018 24670 0 75.00 mm[Hg] - Sitting 121.00 mm[Hg] - Sitting 70.00/ min 46704 018 13112 7 264.00 mg/dL 65884 018 35485 6 132.00 mg/dL 76749 018 02549 6 154.00 mg/dL 12288 018 35286 6 154.00 mg/dL 06925 019 72558 4 63.00 mm[Hg] - Sitting 147.00 mm[Hg] - Sitting 98.50 Tympanic 99.00 % 69.00/ min 18.00/min 76758 019 53011 9 159.00 mg/dL 26943 019 29195 8 73.00 mm[Hg] - Sitting 110.00 mm[Hg] - Sitting 72.00/ min 75574 019 58024 4 191.00 mg/dL 19176 019 32951 8 70.00 mg/dL 06645 019 85599 4 70.00 mg/dL 71495 019 04117 6 198.00 mg/dL 48198 019 37956 0 198.00 mg/dL 83562 020 65279 2 59.00 mm[Hg] - Sitting 131.00 mm[Hg] - Sitting 98.90 Tympanic 99.00 % 69.00/ min 18.00/min 61568 020 27289 7 299.00 mg/dL 81470 020 63597 0 62.00 mm[Hg] - Sitting 132.00 mm[Hg] - Sitting 68.00/ min 36978 020 52962 3 299.00 mg/dL 77884 020 75107 3 299.00 mg/dL 64123 020 95940 9 220.00 mg/dL 28013 020 29917 1 220.00 mg/dL 85523 020 25917 1 270.00 mg/dL 58845 020 75107 4 270.00 mg/dL 86508 020 89281 9 143.00 mg/dL 37048 020 87821 4 143.00 mg/dL 82414 021 67222 0 59.00 mm[Hg] - Sitting 121.00 mm[Hg] - Sitting 98.40 Forehead Scan 98.00 % 70.00/ min 16.00/min 79566 021 89195 0 140.00 mg/dL 71261 021 24350 0 67.00 mm[Hg] - Sitting 130.00 mm[Hg] - Sitting 68.00/ min 76074 021 85978 8 140.00 mg/dL 27785 021 65548 6 140.00 mg/dL 30690 021 19017 8 156.00 mg/dL 90806 021 28356 1 156.00 mg/dL 33412 021 82711 5 146.00 mg/dL 14946 021 57463 4 146.00 mg/dL 90037 021 89441 5 183.00 mg/dL 27962 021 40611 2 183.00 mg/dL 68154 022 07623 3 50361 022 89890 1 43.00 mm[Hg] - Sitting 113.00 mm[Hg] - Sitting 97.80 Tympanic 97.00 % 64.00/ min 18.00/min 36121 022 76835 6 270.00 mg/dL 84054 022 07886 5 68.00 mm[Hg] - Sitting 122.00 mm[Hg] - Sitting 67.00/ min 39549 022 54329 9 270.00 mg/dL 20051 022 96285 4 270.00 mg/dL 55804 022 27201 4 207.00 mg/dL 74168 022 31049 8 207.00 mg/dL 54798 022 53119 9 217.00 mg/dL 40582 022 62569 2 217.00 mg/dL 25565 022 17314 0 192.00 mg/dL 40849 022 09669 9 192.00 mg/dL 73127 023 21312 9 68.00 mm[Hg] - Sitting 131.00 mm[Hg] - Sitting 68.00/ min 70041 023 19256 8 235.00 mg/dL 28775 023 18427 4 235.00 mg/dL 65871 023 26311 0 235.00 mg/dL Immunizations Vaccine Date Status COVID-19 09/20/2023 Completed Other 10/08/2023 Completed Shingles 05/27/2011 Completed Tetanus 04/13/2022 Completed TDaP 04/13/2022 Completed Shingles 2 10/05/2018 Completed
--- OUTSIDE RECORDS SUMMARY | 2024-10-03 11:04 | External Medical Summary | Continuity Of Care Document ---
Author Name Unknown Address [address] [address] Organization [facility] () Care Team Providers Care Pre Planning Advisor Name Role Phone DO Machado Amy Primary Care Provider [phone] Allergies Allergy Reaction Start Date End Date [...] 3 0.1 mL 08/29 Inactiv e 2023 26346 02770 0 1 time Intrad ermal False Tubersol 5 tub. unit/0.1 mL intradermal injection solution [Tuberculin PPD] 0.1mL Intradermal 1 time For PPD 2nd Step Give 2nd Step PPD Day 1 and Read results Day 3 (schedule 7 days after 1st READ) 0.1mL 09/08 Inactiv e 2023 42447 25283 0 1 time Intrad ermal False Humalog [...] order For Diabetes 08/25 Inactiv e 2023 59906 41469 9 4 times a day Subcut aneous False Aspirin 325 mg tablet [generic] 325 By Mouth Twice daily For Anticoagulati on 325 09/25 Active 2023 31059 53881 1 Twice daily By Mouth False Ferrous sulfate 325 mg (65 mg iron) tablet [generic] 325 By Mouth Once daily For anemia 325 2023 Active 2023 57104 56495 5 Once daily By Mouth False Linezolid 600 mg tablet [generic] 600 mg By Mouth Every 12 hours For MRSA INFECTION L BKA 600 mg 08/25 Inactiv e 2023 25778 20782 1 Every 12 hours By Mouth False Cefpodoxime 200 mg tablet [generic] 400 mg By Mouth Twice daily For MRSA INFECTION L BKA 400 mg 08/25 Inactiv e 2023 12414 69536 0 Twice daily By Mouth False Coenzyme Q10 100 mg tablet [generic] 100 mg By Mouth Once daily For SUPP 100 mg 2023 Active 2023 21792 56402 0 Once daily By Mouth False Levothyroxi ne 50 mcg tablet [generic] 50mcg By Mouth Once daily For hypothyroidis m 50mcg 2023 Active 2023 62656 14551 0 Once daily By Mouth False One A Day Men Complete 240 mcg-25 mcg-300 mcg tablet 1 tab By Mouth Once daily For supplement 1 tab 2023 Active 2023 77633 69338 1 Once daily By Mouth False Cholecalcif adalberto (vitamin D3) 50 mcg (2,000 unit) tablet [generic] 1 TAB By Mouth Once daily For SUPP 1 TAB 2023 Active 2023 38032 38917 1 Once daily By Mouth False Cetirizine 10 mg tablet [generic] 1 TAB By Mouth At bedtime For Allergies 1 TAB 2023 Active 2023 94833 61891 0 At bedtime By Mouth False Timolol maleate 0.25 % eye drops [generic] 1 drop Both Eyes Twice daily For glaucoma 1 drop 2023 0000 0000 Active 2023 92545 63434 5 Twice daily Both Eyes False Alendronate 35 mg tablet [generic] 35mg By Mouth Every week For SIADH 35mg 08/31 Inactiv e 2023 48721 03766 5 Every week By Mouth False Lantus Solostar U-100 Insulin 100 unit/mL (3 mL) subcutaneou s pen 18 units Subcutaneous Every morning For DIABETES 18 units 08/25 Inactiv e 2023 52670 41253 0 Every morning Subcut aneous False Lantus Solostar U-100 Insulin 100 unit/mL (3 mL) subcutaneou s pen 18 units Subcutaneous Every morning For DIABETES 18 units 2023 Active 2023 17292 68042 0 Every morning Subcut aneous False Linezolid 600 mg tablet [generic] 600 mg By Mouth Every 12 hours For MRSA INFECTION L BKA 600 mg 08/28 Inactiv e 2023 81522 65646 1 Every 12 hours By Mouth False [...] order For Diabetes 08/31 Inactiv e 2023 93114 44327 9 4 times a day Subcut aneous False Cefpodoxime 200 mg tablet [generic] 400 mg By Mouth Twice daily For MRSA INFECTION L BKA 400 mg 08/28 Inactiv e 2023 76882 41551 0 Twice daily By Mouth False Brimonidine 0.1 % eye drops [generic] 1 drop Both Eyes Twice daily For glaucoma 1 drop 2023 Active 2023 23422 46980 0 Twice daily Both Eyes False Metoprolol succinate ER 50 mg tablet,exte nded release 24 hr [generic] 50 mg By Mouth Once daily HOLD FOR SBP <100, or pulse <60 For HTN 50 mg 2023 Active 2023 97761 75846 1 Once daily By Mouth False Amlodipine 2.5 mg tablet [generic] 2.5 mg By Mouth Once daily For HTN 2.5 mg 2023 Active 2023 07320 58025 5 Once daily By Mouth False Docusate sodium 100 mg capsule [generic] 100mg By Mouth Twice daily as needed For constipation HOLD FOR LOOSE STOOLS 100mg 2023 Active 2023 68157 24534 1 Twice daily as needed By Mouth False Atorvastati n 40 mg tablet [generic] 40mg By Mouth Once daily For HDL 40mg 08/26 Inactiv e 2023 73000 01164 5 Once daily By Mouth False Tylenol 325 mg tablet 2 tabs By Mouth Every 4 hours as needed For Pain DO NOT EXCEED 3000 MG APAP/24 Hours 2 tabs 2023 Active 2023 98765 34910 0 Every 4 hours as needed By Mouth False Tylenol 325 mg tablet 2 tabs By Mouth Every 4 hours as needed For Fever >100 DO NOT EXCEED 3000 MG APAP/24 Hours 2 tabs 2023 Active 2023 95766 46959 0 Every 4 hours as needed By Mouth False Dulcolax (bisacodyl) 10 mg rectal suppository One Suppository per rectum PRN if Milk of Magnisia ineffective. Give on day 5 of no BM 1 sup 2023 Active 2023 81978 36656 1 Daily as needed Rectal False Fleet Enema 19 gram-7 gram/118 mL Administer per rectum PRN one time if dulcolax suppository not effective. Give on day 6 of no BM 1 2023 Active 2023 36627 01524 6 Daily as needed Rectal False Dextrose 50 % in water (D50W) intravenous solution [generic] Dextrose 50% evonne 20-50 ml (slow push) Intravenous if Glucagon not effective after 15 minutes. CALL 911 for ED Evaluation. 50% evonne 2023 Active 2023 14768 99957 9 Intrav enous False Glucagon (HCl) Emergency Kit 1 mg solution for injection Administer Glucagon 1 mg Intramuscular if 15 minutes after GLucose Gel is administered Glucose remains less than 70 1 mg 2023 Active 2023 26453 44212 2 Intram uscula r False Glucose Gel 40 % oral gel [Dextrose] PRN If resident is unable to swallow (with or without symptoms) and Glucose results less than 70 give GLucose 40% Gel 1 tube orally - Recheck Glucose 15 minutes after administratio n. 1 tube 2023 Active 2023 55115 58074 8 By Mouth False Milk of Magnesia 400 mg/5 mL oral suspension [Magnesium hydroxide] PRN 30ml By Mouth Daily as needed for constipation one time daily if no BM, on day 4 of no BM (PRN refer to instructions) For Constipation 30 mL 2023 Active 2023 01294 59416 6 Daily as needed By Mouth False Atorvastati n 40 mg tablet [generic] 08/26 Inactiv e 2023 63795 03689 5 Atorvastati n 40 mg tablet [generic] 40mg By Mouth Once daily For HDL 40mg 2023 Active 2023 54834 55480 5 Once daily By Mouth False Insulin aspart (U-100) 100 unit/mL (3 mL) subcutaneou s pen [generic] 15 units Subcutaneous 1 time For dm 15 units 08/26 Inactiv e 2023 11730 03431 5 1 time Subcut aneous False Humalog KwikPen (U-100) Insulin 100 unit/mL subcutaneou s 15 units Subcutaneous 1 time For dm 15 units 08/27 Inactiv e 2023 05974 04074 9 1 time Subcut aneous False Linezolid 600 mg tablet [generic] 600 mg By Mouth Every 12 hours For MRSA INFECTION L BKA 600 mg 09/06 Inactiv e 2023 68604 99219 1 Every 12 hours By Mouth False Cefpodoxime 200 mg tablet [generic] 400 mg By Mouth Twice daily For MRSA INFECTION L BKA 400 mg 08/31 Inactiv e 2023 18889 84080 0 Twice daily By Mouth False Senna 8.6 mg tablet 8.6 mg By Mouth Once daily For Constipation 8.6 mg 09/07 Inactiv e 2023 40304 25091 1 Once daily By Mouth False Humalog [...] abnormalities . Per Carb 2023 Active 2023 02776 67233 9 4 times a day Subcut aneous False Alendronate 35 mg tablet [generic] 08/31 Inactiv e 2023 10854 41666 5 Alendronate 35 mg tablet [generic] 35mg By Mouth Every week For Osteoporosis 35mg 2023 Active 2023 22840 47312 5 Every week By Mouth False ProSource 10 gram-100 kcal/30 mL oral liquid 30 ml By Mouth Once daily For wound healing 30 ml 2023 Active 2023 73785 36706 2 Once daily By Mouth False Clotrimazol e 1 % topical cream [generic] 1 applicaiton Topical Twice daily For tinea, apply to groin rash after cleansing and throughouly drying. Can discontinue order 3 days after rash resolves. 1 applica stacy 09/08 Inactiv e 2023 17695 08117 0 Twice daily Topica l False MAGIC MIX 1:1:1:1 : ZINC OXIDE EXTERNAL OINTMENT 40%; HYDROCOTISO NE EXTERNAL CREAM 1%; NYSTATIN EXTERNAL CREAM 370566P/GM; SILVADENE CREAM 1% Every shift Apply topically to MASD area on coccyx/buttoc ks each shift and as needed for incontinence care For MASD on coccyx layer 2023 Active 2023 Every shift Topica l False Senna 8.6 mg tablet 8.6 mg By Mouth Once daily For Constipation 8.6 mg 09/07 Inactiv e 2023 78794 62515 1 Once daily By Mouth False Senna 8.6 mg tablet 8.6 mg By Mouth Once daily As Needed For Constipation 8.6 mg 2023 Active 2023 99175 56009 1 Once daily By Mouth False BD AutoShield Duo Pen Needle 30 gauge x 3/16in 1 pen needle Subcutaneous 4 times a day For DM 1 pen needle 2023 Active 2023 02754 14540 5 4 times a day Subcut aneous False Hydrocortis one 1 % topical ointment [generic] 1 application Topical Twice daily For tinea *mix 1:1 with clotrimazole cream and apply to clean/dry groin rash 1 applica peggy 09/19 Active 2023 77141 38467 6 Twice daily Topica l False Clotrimazol e 1 % topical cream [generic] 1 applicaiton Topical Twice daily For tinea, apply to groin rash after cleansing and throughouly drying. MIX WITH HYDROCORTISON E Can discontinue order 3 days after rash resolves. 1 applica stacy 2023 Active 2023 90161 91221 0 Twice daily Topica l False Humalog KwikPen (U-100) Insulin 100 unit/mL subcutaneou s 10/10/ 2024 10/10 /2024 Inactiv e 2023 98473 90051 9 MediHoney HCS 4 1/2in X 4 1/2in bandage Cleanse area with NSS, apply one medihoney hydrocolloid dressing, non adherent dressing, kerlix secure with paper tape daily. For wound stage III 1 2023 Active 2023 28375 33844 1 Once daily Topica l False Problems Code Description Start Date End Date Status D64.9 Anemia, unspecified 08/25/2024 Activ e I25.10 Atherosclerotic hear t disease of [place] coronary artery without angina pectoris 08/25/2024 Active [...] weight Temperature SpO2 Blood Sugar Pulse Respirations 43088 8 67.00 mm[Hg] - Sitting 145.00 mm[Hg] - Sitting 98.50 Forehead Scan 96.00 % 81.00/ min 16.00/min 44968 004 84146 2 67.00 mm[Hg] - Sitting 145.00 mm[Hg] - Sitting 98.50 Tympanic 81.00/ min 16.00/min 89133 004 97651 5 56.00 mm[Hg] - Sitting 142.00 mm[Hg] - Sitting 136.40 NI 100.20 Tympanic 96.00 % 92.00/ min 18.00/min 71853 004 07256 6 96041 004 53848 4 143.00 mg/dL 73357 004 79123 0 97.80 Tympanic 85472 005 29508 7 60.00 mm[Hg] - Sitting 140.00 mm[Hg] - Sitting 98.00 Tympanic 84.00/ min 18.00/min 95293 005 99442 0 63.00 mm[Hg] - Sitting 141.00 mm[Hg] - Sitting 98.20 Tympanic 92.00 % 63.00/ min 16.00/min 52289 005 51806 8 69.00 mm[Hg] - Sitting 106.00 mm[Hg] - Sitting 97.20 Tympanic 19903 005 56265 7 69.00/ min 16.00/min 37344 005 00338 3 69.00 mm[Hg] - Sitting 106.00 mm[Hg] - Sitting 98.20 Tympanic 69.00/ min 16.00/min 77833 005 73863 1 367.00 mg/dL 54594 005 39739 2 97.20 Tympanic 63896 005 36498 4 97.20 Tympanic 94551 005 22365 0 69.00 mm[Hg] - Sitting 106.00 mm[Hg] - Sitting 69.00/ min 74843 005 31273 3 452.00 mg/dL 72356 005 47192 3 452.00 mg/dL 50523 005 72225 5 352.00 mg/dL 00231 005 27646 3 352.00 mg/dL 75036 005 76921 7 98.20 Tympanic 78890 005 13069 3 101.00 mg/dL 77142 005 8 101.00 mg/dL 94736 006 82720 4 66.00 mm[Hg] - Sitting 107.00 mm[Hg] - Sitting 98.00 Tympanic 66.00/ min 18.00/min 59258 006 32269 0 62.00 mm[Hg] - Sitting 162.00 mm[Hg] - Sitting 98.20 Tympanic 96.00 % 60.00/ min 16.00/min 74393 006 30097 4 62.00 mm[Hg] - Sitting 162.00 mm[Hg] - Sitting 98.00 Tympanic 70.00/ min 18.00/min 00102 006 14972 8 62.00 mm[Hg] - Sitting 162.00 mm[Hg] - Sitting 98.20 Tympanic 70.00/ min 18.00/min 06045 006 10199 2 66.00 mm[Hg] - Sitting 132.00 mm[Hg] - Sitting 98.60 Tympanic 74.00/ min 16.00/min 75975 006 43472 5 159.00 mg/dL 11122 006 78865 1 159.00 mg/dL 20777 006 47373 8 98.00 Tympanic 46041 006 89154 2 62.00 mm[Hg] - Sitting 162.00 mm[Hg] - Sitting 70.00/ min 88813 006 58511 7 264.00 mg/dL 83854 006 84154 7 264.00 mg/dL 16166 006 09857 4 196.00 mg/dL 21436 006 99518 3 98.20 Tympanic 99697 006 18821 6 271.00 mg/dL 05876 007 50857 3 97.20 Tympanic 92599 007 13804 2 63.00 mm[Hg] - Sitting 132.00 mm[Hg] - Sitting 98.50 Tympanic 94.00 % 66.00/ min 16.00/min 80326 007 81859 5 188.00 mg/dL 73987 007 74816 2 188.00 mg/dL 11157 007 45732 2 188.00 mg/dL 98289 007 82563 7 97.20 Tympanic 01312 007 94526 6 97.20 Tympanic 91195 007 64647 5 67.00 mm[Hg] - Sitting 152.00 mm[Hg] - Sitting 68.00/ min 94326 007 72129 0 141.00 mg/dL 02160 007 14470 3 141.00 mg/dL 43181 007 96984 1 366.00 mg/dL 66730 007 71628 7 366.00 mg/dL 08132 007 08195 7 98.00 Tympanic 73590 007 72328 6 324.00 mg/dL 96037 007 87019 3 98.00 Tympanic 49867 007 73321 7 324.00 mg/dL 99116 008 39868 0 98.00 Tympanic 84110 008 06897 2 97.90 Tympanic 32369 008 82248 0 98.20 Tympanic 73718 008 58406 0 73.00 mm[Hg] - Sitting 156.00 mm[Hg] - Sitting 98.60 Tympanic 99.00 % 66.00/ min 20.00/min 91909 008 73784 5 137.00 mg/dL 31174 008 60253 7 137.00 mg/dL 76942 008 42809 2 97.90 Tympanic 78605 008 52013 1 137.00 mg/dL 37936 008 04089 8 97.90 Tympanic 36435 008 94983 5 67.00 mm[Hg] - Sitting 124.00 /min 53953 008 67812 6 212.00 mg/dL 02660 008 05679 6 212.00 mg/dL 60410 008 28233 9 317.00 mg/dL 36616 008 17878 4 317.00 mg/dL 52592 008 03897 8 252.00 mg/dL 41352 008 16269 0 98.70 Tympanic 66183 008 30137 7 252.00 mg/dL 51572 008 93968 3 98.70 Tympanic 66744 009 05777 9 98.70 Tympanic 31520 009 19123 3 98.20 Tympanic 49522 009 42385 5 98.40 Tympanic 81204 009 99149 5 57.00 mm[Hg] - Sitting 129.00 mm[Hg] - Sitting 98.30 Tympanic 97.00 % 65.00/ min 18.00/min 66944 009 48824 1 255.00 mg/dL 56385 009 32373 4 255.00 mg/dL 09192 009 13400 5 98.20 Tympanic 53507 009 09959 0 255.00 mg/dL 16597 009 69083 0 98.20 Tympanic 15045 009 10742 4 63.00 mm[Hg] - Lying Down 102.00 mm[Hg] - Lying Down 58.00/ min 54300 009 62504 0 167.00 mg/dL 40884 009 10333 1 167.00 mg/dL 36276 009 31350 2 164.00 mg/dL 10197 009 41945 1 164.00 mg/dL 23846 009 33422 5 208.00 mg/dL 82410 010 11884 3 98.40 Tympanic 93223 010 68814 5 98.40 Tympanic 88431 010 56336 7 66 NI 99540 010 99233 4 60.00 mm[Hg] - Sitting 143.00 mm[Hg] - Sitting 98.90 Tympanic 98.00 % 67.00/ min 18.00/min 32456 010 31372 2 214.00 mg/dL 51297 010 75755 0 214.00 mg/dL 24225 010 62378 7 214.00 mg/dL 97403 010 22160 6 64.00 mm[Hg] - Sitting 110.00 mm[Hg] - Sitting 72.00/ min 87979 010 15933 7 98.40 Tympanic 96487 010 18721 1 212.00 mg/dL 08369 010 57579 2 212.00 mg/dL 39216 010 06810 1 115.00 mg/dL 89095 010 46213 0 115.00 mg/dL 17137 010 20627 4 98.50 Tympanic 10674 010 87534 4 150.00 mg/dL 39810 010 23360 0 150.00 mg/dL 12488 011 77287 9 98.60 Tympanic 85768 011 93123 1 67.00 mm[Hg] - Sitting 144.00 mm[Hg] - Sitting 98.20 Tympanic 98.00 % 61.00/ min 18.00/min 68916 011 15522 7 290.00 mg/dL 69812 011 70005 2 290.00 mg/dL 27711 011 69386 2 290.00 mg/dL 93629 011 58145 7 54.00 mm[Hg] - Sitting 136.00 mm[Hg] - Sitting 101.00 /min 59247 011 09833 7 98.60 Tympanic 05998 011 85842 5 240.00 mg/dL 14157 011 43601 1 240.00 mg/dL 85654 011 39436 1 156.00 mg/dL 33659 011 72219 9 156.00 mg/dL 52392 011 89149 0 97.80 Tympanic 71704 011 17221 8 343.00 mg/dL 99846 012 31502 9 97.90 Tympanic 82499 012 93056 2 466.00 mg/dL 01997 012 17924 1 466.00 mg/dL 05571 012 79159 3 466.00 mg/dL 03050 012 62510 8 97.90 Tympanic 56322 012 13498 8 56.00 mm[Hg] - Sitting 96.00 mm[Hg] - Sitting 61.00/ min 63184 012 68673 7 350.00 mg/dL 10248 012 29161 5 350.00 mg/dL 69618 012 45491 6 111.00 mg/dL 12948 012 02109 0 111.00 mg/dL 75726 012 00912 5 98.40 Tympanic 28729 012 14188 6 114.00 mg/dL 57035 013 27526 4 74.00 mm[Hg] - Sitting 112.00 mm[Hg] - Sitting 98.40 Tympanic 70.00/ min 18.00/min 91517 013 90334 8 244.00 mg/dL 99695 013 45401 7 244.00 mg/dL 70770 013 94946 1 244.00 mg/dL 64517 013 65818 1 98.20 Tympanic 13199 013 32772 7 72.00 mm[Hg] - Sitting 119.00 mm[Hg] - Sitting 76.00/ min 78680 013 01793 7 253.00 mg/dL 06534 013 31439 4 253.00 mg/dL 69973 013 08017 9 156.00 mg/dL 74302 013 08105 5 156.00 mg/dL 61726 013 42841 4 97.90 Tympanic 59538 013 90186 5 189.00 mg/dL 47463 014 68234 9 98.10 Tympanic 34634 014 73424 0 61.00 mm[Hg] - Sitting 139.00 mm[Hg] - Sitting 98.20 Forehead Scan 99.00 % 66.00/ min 18.00/min 61866 014 31765 3 169.00 mg/dL 86363 014 80403 3 98.10 Tympanic 70448 014 01745 3 75.00 mm[Hg] - Sitting 121.00 mm[Hg] - Sitting 71.00/ min 96464 014 34602 9 221.00 mg/dL 57701 014 56797 9 62.00 mg/dL 46027 014 54525 5 62.00 mg/dL 67741 014 18099 8 156.00 mg/dL 96166 014 59445 6 98.10 Tympanic 77354 014 91514 7 156.00 mg/dL 56298 015 57257 4 09955 015 35053 7 62.00 mm[Hg] - Sitting 142.00 mm[Hg] - Sitting 98.20 Tympanic 99.00 % 67.00/ min 18.00/min 18801 015 96855 9 120.00 mg/dL 21635 015 45559 7 98.00 Tympanic 53512 015 41817 2 82.00 mm[Hg] - Sitting 119.00 /min 60470 015 05771 9 110.00 mg/dL 33639 015 32997 6 104.00 mg/dL 36978 015 90147 0 100.00 mg/dL 32889 015 68039 2 98.10 Tympanic 27212 015 67849 6 100.00 mg/dL 26551 016 60305 2 67.00 mm[Hg] - Sitting 147.00 mm[Hg] - Sitting 99.00 Tympanic 99.00 % 78.00/ min 20.00/min 73976 016 16900 5 158.00 mg/dL 33331 016 65267 1 158.00 mg/dL 82452 016 89415 2 158.00 mg/dL 26291 016 10405 0 66.00 mm[Hg] - Sitting 121.00 mm[Hg] - Sitting 74.00/ min 12420 016 29160 1 97.00 mg/dL 63698 016 82154 5 97.00 mg/dL 40890 016 80939 4 78.00 mg/dL 51197 016 12094 6 78.00 mg/dL 02555 016 60082 5 248.00 mg/dL 40831 016 62487 8 248.00 mg/dL 16347 017 71724 3 54.00 mm[Hg] - Sitting 142.00 mm[Hg] - Sitting 98.30 Tympanic 99.00 % 76.00/ min 18.00/min 03676 017 94855 4 267.00 mg/dL 38362 017 94792 6 73.00 mm[Hg] - Sitting 109.00 mm[Hg] - Sitting 70.00/ min 43301 017 22538 1 184.00 mg/dL 62549 017 47479 5 184.00 mg/dL 11701 017 46495 9 248.00 mg/dL 18996 017 15784 8 299.00 mg/dL 00063 017 98559 3 299.00 mg/dL 15720 018 00698 7 50.00 mm[Hg] - Sitting 125.00 mm[Hg] - Sitting 98.30 Tympanic 98.00 % 76.00/ min 16.00/min 60031 018 40187 3 168.00 mg/dL 97060 018 18062 0 75.00 mm[Hg] - Sitting 121.00 mm[Hg] - Sitting 70.00/ min 06073 018 76218 7 264.00 mg/dL 39403 018 48816 6 132.00 mg/dL 38293 018 11026 6 154.00 mg/dL 51441 018 86189 6 154.00 mg/dL 55048 019 27635 4 63.00 mm[Hg] - Sitting 147.00 mm[Hg] - Sitting 98.50 Tympanic 99.00 % 69.00/ min 18.00/min 69756 019 99841 9 159.00 mg/dL 21680 019 40134 8 73.00 mm[Hg] - Sitting 110.00 mm[Hg] - Sitting 72.00/ min 96539 019 44531 4 191.00 mg/dL 62026 019 73165 8 70.00 mg/dL 78088 019 43683 4 70.00 mg/dL 24682 019 41133 6 198.00 mg/dL 61690 019 98232 0 198.00 mg/dL 71103 020 53591 2 59.00 mm[Hg] - Sitting 131.00 mm[Hg] - Sitting 98.90 Tympanic 99.00 % 69.00/ min 18.00/min 19615 020 50298 7 299.00 mg/dL 61507 020 40932 0 62.00 mm[Hg] - Sitting 132.00 mm[Hg] - Sitting 68.00/ min 29126 020 29180 3 299.00 mg/dL 27096 020 88096 3 299.00 mg/dL 24886 020 82799 9 220.00 mg/dL 98289 020 07362 1 220.00 mg/dL 59769 020 62272 1 270.00 mg/dL 09046 020 34925 4 270.00 mg/dL 89507 020 10907 9 143.00 mg/dL 39829 020 58561 4 143.00 mg/dL 42233 021 02727 0 59.00 mm[Hg] - Sitting 121.00 mm[Hg] - Sitting 98.40 Forehead Scan 98.00 % 70.00/ min 16.00/min 23430 021 19317 0 140.00 mg/dL 91594 021 84696 0 67.00 mm[Hg] - Sitting 130.00 mm[Hg] - Sitting 68.00/ min 98140 021 32624 8 140.00 mg/dL 47206 021 44763 6 140.00 mg/dL 75811 021 58872 8 156.00 mg/dL 52084 021 73368 1 156.00 mg/dL 76085 021 96346 5 146.00 mg/dL 55272 021 72777 4 146.00 mg/dL 67004 021 99011 5 183.00 mg/dL 35302 021 21004 2 183.00 mg/dL 65562 022 15769 3 27231 022 22881 1 43.00 mm[Hg] - Sitting 113.00 mm[Hg] - Sitting 97.80 Tympanic 97.00 % 64.00/ min 18.00/min 65593 022 80266 6 270.00 mg/dL 38277 022 62278 5 68.00 mm[Hg] - Sitting 122.00 mm[Hg] - Sitting 67.00/ min 15771 022 41764 9 270.00 mg/dL 24014 022 45318 4 270.00 mg/dL 60672 022 40584 4 207.00 mg/dL 02195 022 03241 8 207.00 mg/dL 85806 022 13251 9 217.00 mg/dL 75180 022 09465 2 217.00 mg/dL 79420 022 89900 0 192.00 mg/dL 96440 022 24088 9 192.00 mg/dL 03952 023 58735 9 68.00 mm[Hg] - Sitting 131.00 mm[Hg] - Sitting 68.00/ min 89588 023 34111 8 235.00 mg/dL 41107 023 98692 4 235.00 mg/dL 21084 023 41791 0 235.00 mg/dL Immunizations Vaccine Date Status COVID-19 09/20/2023 Completed Other 10/08/2023 Completed Shingles 05/27/2011 Completed Tetanus 04/13/2022 Completed TDaP 04/13/2022 Completed Shingles 2 10/05/2018 Completed
--- OUTSIDE RECORDS SUMMARY | 2024-10-03 11:05 | External Medical Summary | Continuity Of Care Document ---
Author Name Unknown Address [address] [address] Organization [facility] () Care Team Providers Care Pension Administrator Name Role Phone DO Machado Amy Primary Care Provider [phone] Allergies Allergy Reaction Start Date End Date [...] 3 0.1 mL 08/29 Inactiv e 2023 16618 95883 0 1 time Intrad ermal False Tubersol 5 tub. unit/0.1 mL intradermal injection solution [Tuberculin PPD] 0.1mL Intradermal 1 time For PPD 2nd Step Give 2nd Step PPD Day 1 and Read results Day 3 (schedule 7 days after 1st READ) 0.1mL 09/08 Inactiv e 2023 88332 73124 0 1 time Intrad ermal False Humalog [...] order For Diabetes 08/25 Inactiv e 2023 29210 06263 9 4 times a day Subcut aneous False Aspirin 325 mg tablet [generic] 325 By Mouth Twice daily For Anticoagulati on 325 09/25 Active 2023 76349 02667 1 Twice daily By Mouth False Ferrous sulfate 325 mg (65 mg iron) tablet [generic] 325 By Mouth Once daily For anemia 325 2023 Active 2023 96355 40340 5 Once daily By Mouth False Linezolid 600 mg tablet [generic] 600 mg By Mouth Every 12 hours For MRSA INFECTION L BKA 600 mg 08/25 Inactiv e 2023 91960 57837 1 Every 12 hours By Mouth False Cefpodoxime 200 mg tablet [generic] 400 mg By Mouth Twice daily For MRSA INFECTION L BKA 400 mg 08/25 Inactiv e 2023 03535 46129 0 Twice daily By Mouth False Coenzyme Q10 100 mg tablet [generic] 100 mg By Mouth Once daily For SUPP 100 mg 2023 Active 2023 08134 07085 0 Once daily By Mouth False Levothyroxi ne 50 mcg tablet [generic] 50mcg By Mouth Once daily For hypothyroidis m 50mcg 2023 Active 2023 46334 62247 0 Once daily By Mouth False One A Day Men Complete 240 mcg-25 mcg-300 mcg tablet 1 tab By Mouth Once daily For supplement 1 tab 2023 Active 2023 32090 95152 1 Once daily By Mouth False Cholecalcif adalberto (vitamin D3) 50 mcg (2,000 unit) tablet [generic] 1 TAB By Mouth Once daily For SUPP 1 TAB 2023 Active 2023 33682 13954 1 Once daily By Mouth False Cetirizine 10 mg tablet [generic] 1 TAB By Mouth At bedtime For Allergies 1 TAB 2023 Active 2023 38646 15948 0 At bedtime By Mouth False Timolol maleate 0.25 % eye drops [generic] 1 drop Both Eyes Twice daily For glaucoma 1 drop 2023 0000 0000 Active 2023 02292 15300 5 Twice daily Both Eyes False Alendronate 35 mg tablet [generic] 35mg By Mouth Every week For SIADH 35mg 08/31 Inactiv e 2023 67760 73951 5 Every week By Mouth False Lantus Solostar U-100 Insulin 100 unit/mL (3 mL) subcutaneou s pen 18 units Subcutaneous Every morning For DIABETES 18 units 08/25 Inactiv e 2023 24414 93990 0 Every morning Subcut aneous False Lantus Solostar U-100 Insulin 100 unit/mL (3 mL) subcutaneou s pen 18 units Subcutaneous Every morning For DIABETES 18 units 2023 Active 2023 49716 71360 0 Every morning Subcut aneous False Linezolid 600 mg tablet [generic] 600 mg By Mouth Every 12 hours For MRSA INFECTION L BKA 600 mg 08/28 Inactiv e 2023 59888 53085 1 Every 12 hours By Mouth False [...] order For Diabetes 08/31 Inactiv e 2023 81738 36461 9 4 times a day Subcut aneous False Cefpodoxime 200 mg tablet [generic] 400 mg By Mouth Twice daily For MRSA INFECTION L BKA 400 mg 08/28 Inactiv e 2023 92138 34519 0 Twice daily By Mouth False Brimonidine 0.1 % eye drops [generic] 1 drop Both Eyes Twice daily For glaucoma 1 drop 2023 Active 2023 82496 96137 0 Twice daily Both Eyes False Metoprolol succinate ER 50 mg tablet,exte nded release 24 hr [generic] 50 mg By Mouth Once daily HOLD FOR SBP <100, or pulse <60 For HTN 50 mg 2023 Active 2023 92598 69855 1 Once daily By Mouth False Amlodipine 2.5 mg tablet [generic] 2.5 mg By Mouth Once daily For HTN 2.5 mg 2023 Active 2023 99744 05922 5 Once daily By Mouth False Docusate sodium 100 mg capsule [generic] 100mg By Mouth Twice daily as needed For constipation HOLD FOR LOOSE STOOLS 100mg 2023 Active 2023 88376 48201 1 Twice daily as needed By Mouth False Atorvastati n 40 mg tablet [generic] 40mg By Mouth Once daily For HDL 40mg 08/26 Inactiv e 2023 94845 94692 5 Once daily By Mouth False Tylenol 325 mg tablet 2 tabs By Mouth Every 4 hours as needed For Pain DO NOT EXCEED 3000 MG APAP/24 Hours 2 tabs 2023 Active 2023 71626 55019 0 Every 4 hours as needed By Mouth False Tylenol 325 mg tablet 2 tabs By Mouth Every 4 hours as needed For Fever >100 DO NOT EXCEED 3000 MG APAP/24 Hours 2 tabs 2023 Active 2023 24191 86268 0 Every 4 hours as needed By Mouth False Dulcolax (bisacodyl) 10 mg rectal suppository One Suppository per rectum PRN if Milk of Magnisia ineffective. Give on day 5 of no BM 1 sup 2023 Active 2023 62750 09988 1 Daily as needed Rectal False Fleet Enema 19 gram-7 gram/118 mL Administer per rectum PRN one time if dulcolax suppository not effective. Give on day 6 of no BM 1 2023 Active 2023 23442 39339 6 Daily as needed Rectal False Dextrose 50 % in water (D50W) intravenous solution [generic] Dextrose 50% evonne 20-50 ml (slow push) Intravenous if Glucagon not effective after 15 minutes. CALL 911 for ED Evaluation. 50% evonne 2023 Active 2023 50534 26350 9 Intrav enous False Glucagon (HCl) Emergency Kit 1 mg solution for injection Administer Glucagon 1 mg Intramuscular if 15 minutes after GLucose Gel is administered Glucose remains less than 70 1 mg 2023 Active 2023 71826 53189 2 Intram uscula r False Glucose Gel 40 % oral gel [Dextrose] PRN If resident is unable to swallow (with or without symptoms) and Glucose results less than 70 give GLucose 40% Gel 1 tube orally - Recheck Glucose 15 minutes after administratio n. 1 tube 2023 Active 2023 29788 78272 8 By Mouth False Milk of Magnesia 400 mg/5 mL oral suspension [Magnesium hydroxide] PRN 30ml By Mouth Daily as needed for constipation one time daily if no BM, on day 4 of no BM (PRN refer to instructions) For Constipation 30 mL 2023 Active 2023 47677 33255 6 Daily as needed By Mouth False Atorvastati n 40 mg tablet [generic] 08/26 Inactiv e 2023 58154 40019 5 Atorvastati n 40 mg tablet [generic] 40mg By Mouth Once daily For HDL 40mg 2023 Active 2023 77160 36239 5 Once daily By Mouth False Insulin aspart (U-100) 100 unit/mL (3 mL) subcutaneou s pen [generic] 15 units Subcutaneous 1 time For dm 15 units 08/26 Inactiv e 2023 36104 86550 5 1 time Subcut aneous False Humalog KwikPen (U-100) Insulin 100 unit/mL subcutaneou s 15 units Subcutaneous 1 time For dm 15 units 08/27 Inactiv e 2023 21568 28205 9 1 time Subcut aneous False Linezolid 600 mg tablet [generic] 600 mg By Mouth Every 12 hours For MRSA INFECTION L BKA 600 mg 09/06 Inactiv e 2023 04385 81110 1 Every 12 hours By Mouth False Cefpodoxime 200 mg tablet [generic] 400 mg By Mouth Twice daily For MRSA INFECTION L BKA 400 mg 08/31 Inactiv e 2023 75543 81794 0 Twice daily By Mouth False Senna 8.6 mg tablet 8.6 mg By Mouth Once daily For Constipation 8.6 mg 09/07 Inactiv e 2023 96007 15262 1 Once daily By Mouth False Humalog [...] abnormalities . Per Carb 2023 Active 2023 30395 70520 9 4 times a day Subcut aneous False Alendronate 35 mg tablet [generic] 08/31 Inactiv e 2023 77477 02732 5 Alendronate 35 mg tablet [generic] 35mg By Mouth Every week For Osteoporosis 35mg 2023 Active 2023 41987 67705 5 Every week By Mouth False ProSource 10 gram-100 kcal/30 mL oral liquid 30 ml By Mouth Once daily For wound healing 30 ml 2023 Active 2023 44093 80229 2 Once daily By Mouth False Problems Code Description Start Date End Date Status D64.9 Anemia, unspecified 08/25/2024 Activ e I25.10 Atherosclerotic hear t disease of [place] coronary artery without angina pectoris 08/25/2024 Active [...] weight Temperature SpO2 Blood Sugar Pulse Respirations 70638 004 37358 8 67.00 mm[Hg] - Sitting 145.00 mm[Hg] - Sitting 98.50 Forehead Scan 96.00 % 81.00/ min 16.00/min 20247 004 14095 2 67.00 mm[Hg] - Sitting 145.00 mm[Hg] - Sitting 98.50 Tympanic 81.00/ min 16.00/min 45370 004 98216 5 56.00 mm[Hg] - Sitting 142.00 mm[Hg] - Sitting 136.40 NI 100.20 Tympanic 96.00 % 92.00/ min 18.00/min 67668 004 57168 6 25745 004 31602 4 143.00 mg/dL 32273 004 46189 0 97.80 Tympanic 38784 005 60722 7 60.00 mm[Hg] - Sitting 140.00 mm[Hg] - Sitting 98.00 Tympanic 84.00/ min 18.00/min 73007 005 08257 0 63.00 mm[Hg] - Sitting 141.00 mm[Hg] - Sitting 98.20 Tympanic 92.00 % 63.00/ min 16.00/min 18197 005 20085 8 69.00 mm[Hg] - Sitting 106.00 mm[Hg] - Sitting 97.20 Tympanic 96430 005 60471 7 69.00/ min 16.00/min 60987 005 83890 3 69.00 mm[Hg] - Sitting 106.00 mm[Hg] - Sitting 98.20 Tympanic 69.00/ min 16.00/min 80397 005 60544 1 367.00 mg/dL 69418 005 78647 2 97.20 Tympanic 21671 005 97690 4 97.20 Tympanic 20125 005 86993 0 69.00 mm[Hg] - Sitting 106.00 mm[Hg] - Sitting 69.00/ min 95725 005 90922 3 452.00 mg/dL 74053 005 42072 3 452.00 mg/dL 63180 005 46527 5 352.00 mg/dL 73465 005 92188 3 352.00 mg/dL 66850 005 01640 7 98.20 Tympanic 15053 005 19426 3 101.00 mg/dL 24688 005 42156 8 101.00 mg/dL 67302 006 52527 4 66.00 mm[Hg] - Sitting 107.00 mm[Hg] - Sitting 98.00 Tympanic 66.00/ min 18.00/min 82576 006 40065 0 62.00 mm[Hg] - Sitting 162.00 mm[Hg] - Sitting 98.20 Tympanic 96.00 % 60.00/ min 16.00/min 41217 006 73980 4 62.00 mm[Hg] - Sitting 162.00 mm[Hg] - Sitting 98.00 Tympanic 70.00/ min 18.00/min 92101 006 54690 8 62.00 mm[Hg] - Sitting 162.00 mm[Hg] - Sitting 98.20 Tympanic 70.00/ min 18.00/min 44918 006 75899 2 66.00 mm[Hg] - Sitting 132.00 mm[Hg] - Sitting 98.60 Tympanic 74.00/ min 16.00/min 80172 006 90924 5 159.00 mg/dL 00417 006 55086 1 159.00 mg/dL 91900 006 60930 8 98.00 Tympanic 32613 006 62030 2 62.00 mm[Hg] - Sitting 162.00 mm[Hg] - Sitting 70.00/ min 26384 006 07859 7 264.00 mg/dL 46653 006 99263 7 264.00 mg/dL 16212 006 49836 4 196.00 mg/dL 27483 006 83721 3 98.20 Tympanic 96190 006 43974 6 271.00 mg/dL 48562 007 31236 3 97.20 Tympanic 42939 007 82043 2 63.00 mm[Hg] - Sitting 132.00 mm[Hg] - Sitting 98.50 Tympanic 94.00 % 66.00/ min 16.00/min 96426 007 68722 5 188.00 mg/dL 60836 007 27648 2 188.00 mg/dL 34541 007 07890 2 188.00 mg/dL 50224 007 25880 7 97.20 Tympanic 28365 007 24397 6 97.20 Tympanic 22342 007 86243 5 67.00 mm[Hg] - Sitting 152.00 mm[Hg] - Sitting 68.00/ min 54839 007 78556 0 141.00 mg/dL 15031 007 28279 3 141.00 mg/dL 82003 007 52488 1 366.00 mg/dL 99588 007 69447 7 366.00 mg/dL 85832 007 21141 7 98.00 Tympanic 92970 007 99012 6 324.00 mg/dL 38827 007 36618 3 98.00 Tympanic 86357 007 00961 7 324.00 mg/dL 33202 008 02099 0 98.00 Tympanic 03247 008 39194 2 97.90 Tympanic 17615 008 82453 0 98.20 Tympanic 66904 008 13732 0 73.00 mm[Hg] - Sitting 156.00 mm[Hg] - Sitting 98.60 Tympanic 99.00 % 66.00/ min 20.00/min 36653 008 76984 5 137.00 mg/dL 63915 008 25723 7 137.00 mg/dL 87962 008 55593 2 97.90 Tympanic 91095 008 44267 1 137.00 mg/dL 13975 008 84039 8 97.90 Tympanic 13989 008 47785 5 67.00 mm[Hg] - Sitting 124.00 /min 35666 008 15884 6 212.00 mg/dL 86723 008 48382 6 212.00 mg/dL 06558 008 60765 9 317.00 mg/dL 13252 008 31056 4 317.00 mg/dL 56126 008 58694 8 252.00 mg/dL 31314 008 62577 0 98.70 Tympanic 07128 008 57362 7 252.00 mg/dL 27944 008 63479 3 98.70 Tympanic 56192 009 73625 9 98.70 Tympanic 04893 009 21211 3 98.20 Tympanic 08006 009 83738 5 98.40 Tympanic 72084 009 33708 5 57.00 mm[Hg] - Sitting 129.00 mm[Hg] - Sitting 98.30 Tympanic 97.00 % 65.00/ min 18.00/min 87158 009 23368 1 255.00 mg/dL 09687 009 61715 4 255.00 mg/dL 51624 009 56227 5 98.20 Tympanic 72864 009 46871 0 255.00 mg/dL 08884 009 85888 0 98.20 Tympanic 99034 009 94402 4 63.00 mm[Hg] - Lying Down 102.00 mm[Hg] - Lying Down 58.00/ min 37945 009 74588 0 167.00 mg/dL 76780 009 33120 1 167.00 mg/dL 45174 009 46525 2 164.00 mg/dL 87664 009 71273 1 164.00 mg/dL 87640 009 92166 5 208.00 mg/dL 93397 010 17379 3 98.40 Tympanic 68564 010 47360 5 98.40 Tympanic 79999 010 61336 7 66 [place] [address] 010 02922 4 60.00 mm[Hg] - Sitting 143.00 mm[Hg] - Sitting 98.90 Tympanic 98.00 % 67.00/ min 18.00/min 14964 010 88618 2 214.00 mg/dL 61102 010 50248 0 214.00 mg/dL 61373 010 35802 7 214.00 mg/dL 03803 010 73919 6 64.00 mm[Hg] - Sitting 110.00 mm[Hg] - Sitting 72.00/ min 87278 010 33623 7 98.40 Tympanic 36019 010 09145 1 212.00 mg/dL 91716 010 06664 2 212.00 mg/dL 22458 010 74789 1 115.00 mg/dL 28480 010 94109 0 115.00 mg/dL 27564 010 54096 4 98.50 Tympanic 39859 010 28799 4 150.00 mg/dL 89947 010 50504 0 150.00 mg/dL 30714 011 96281 9 98.60 Tympanic 32164 011 02743 1 67.00 mm[Hg] - Sitting 144.00 mm[Hg] - Sitting 98.20 Tympanic 98.00 % 61.00/ min 18.00/min 97094 011 34215 7 290.00 mg/dL 82759 011 37886 2 290.00 mg/dL 94848 011 84481 2 290.00 mg/dL 27414 011 86489 7 54.00 mm[Hg] - Sitting 136.00 mm[Hg] - Sitting 101.00 /min 63176 011 02661 7 98.60 Tympanic 40443 011 97629 5 240.00 mg/dL 82250 011 47054 1 240.00 mg/dL 30197 011 20603 1 156.00 mg/dL 06819 011 47665 9 156.00 mg/dL 51928 011 68950 0 97.80 Tympanic 90217 011 25113 8 343.00 mg/dL 25966 012 00741 9 97.90 Tympanic 17276 012 51914 2 466.00 mg/dL 87159 012 48444 1 466.00 mg/dL 28878 012 33355 3 466.00 mg/dL 34188 012 36580 8 97.90 Tympanic 36349 012 66584 8 56.00 mm[Hg] - Sitting 96.00 mm[Hg] - Sitting 61.00/ min 76332 012 10340 7 350.00 mg/dL 49285 012 25881 5 350.00 mg/dL 46155 012 06857 6 111.00 mg/dL 41055 012 71956 0 111.00 mg/dL 68666 012 49397 5 98.40 Tympanic 08913 012 43622 6 114.00 mg/dL 37813 013 12088 4 74.00 mm[Hg] - Sitting 112.00 mm[Hg] - Sitting 98.40 Tympanic 70.00/ min 18.00/min 08736 013 68204 8 244.00 mg/dL 46853 013 98384 7 244.00 mg/dL 74126 013 15546 1 244.00 mg/dL 57633 013 81028 1 98.20 Tympanic 09348 013 73064 7 72.00 mm[Hg] - Sitting 119.00 mm[Hg] - Sitting 76.00/ min 28552 013 72720 7 253.00 mg/dL 12249 013 65844 4 253.00 mg/dL 55833 013 21969 9 156.00 mg/dL 64135 013 49531 5 156.00 mg/dL 68110 013 14379 4 97.90 Tympanic 36283 013 52006 5 189.00 mg/dL 53642 014 50377 9 98.10 Tympanic 97542 014 02114 0 61.00 mm[Hg] - Sitting 139.00 mm[Hg] - Sitting 98.20 Forehead Scan 99.00 % 66.00/ min 18.00/min 92342 014 94023 3 169.00 mg/dL 57397 014 81541 3 98.10 Tympanic 10350 014 38616 3 75.00 mm[Hg] - Sitting 121.00 mm[Hg] - Sitting 71.00/ min 15096 014 45826 9 221.00 mg/dL 55760 014 56283 9 62.00 mg/dL 71819 014 03469 5 62.00 mg/dL 38866 014 63729 8 156.00 mg/dL 03092 014 45506 6 98.10 Tympanic 87076 014 42375 7 156.00 mg/dL 23806 015 87802 4 64204 015 24696 7 62.00 mm[Hg] - Sitting 142.00 mm[Hg] - Sitting 98.20 Tympanic 99.00 % 67.00/ min 18.00/min 21646 015 98574 9 120.00 mg/dL 51412 015 25913 7 98.00 Tympanic 13353 015 89047 2 82.00 mm[Hg] - Sitting 119.00 /min 36469 015 46204 9 110.00 mg/dL 10601 015 94828 6 104.00 mg/dL 41016 015 49371 0 100.00 mg/dL 63527 015 85069 2 98.10 Tympanic 26352 015 84338 6 100.00 mg/dL 50330 016 05166 2 67.00 mm[Hg] - Sitting 147.00 mm[Hg] - Sitting 99.00 Tympanic 99.00 % 78.00/ min 20.00/min 05043 016 51970 5 158.00 mg/dL 62674 016 60140 1 158.00 mg/dL 01831 016 92310 2 158.00 mg/dL 04344 016 67778 0 66.00 mm[Hg] - Sitting 121.00 mm[Hg] - Sitting 74.00/ min 92698 016 72228 1 97.00 mg/dL 39201 016 42177 5 97.00 mg/dL 42740 016 46580 4 78.00 mg/dL 64027 016 67718 6 78.00 mg/dL 05888 016 56000 5 248.00 mg/dL 19661 016 17738 8 248.00 mg/dL 27588 017 37447 3 54.00 mm[Hg] - Sitting 142.00 mm[Hg] - Sitting 98.30 Tympanic 99.00 % 76.00/ min 18.00/min 19404 017 07340 4 267.00 mg/dL 46063 017 57647 6 73.00 mm[Hg] - Sitting 109.00 mm[Hg] - Sitting 70.00/ min 29042 017 68862 1 184.00 mg/dL 82300 017 95695 5 184.00 mg/dL 08397 017 83628 9 248.00 mg/dL 03918 017 37003 8 299.00 mg/dL 89905 017 49367 3 299.00 mg/dL 55958 018 88446 7 50.00 mm[Hg] - Sitting 125.00 mm[Hg] - Sitting 98.30 Tympanic 98.00 % 76.00/ min 16.00/min 42975 018 59132 3 168.00 mg/dL 60701 018 30853 0 75.00 mm[Hg] - Sitting 121.00 mm[Hg] - Sitting 70.00/ min 70614 018 03342 7 264.00 mg/dL 23678 018 48030 6 132.00 mg/dL 17696 018 00482 6 154.00 mg/dL 13702 018 98776 6 154.00 mg/dL 19214 019 76093 4 63.00 mm[Hg] - Sitting 147.00 mm[Hg] - Sitting 98.50 Tympanic 99.00 % 69.00/ min 18.00/min 20501 019 41564 9 159.00 mg/dL 87141 019 36562 8 73.00 mm[Hg] - Sitting 110.00 mm[Hg] - Sitting 72.00/ min 48601 019 58388 4 191.00 mg/dL 32251 019 99029 8 70.00 mg/dL 86624 019 91632 4 70.00 mg/dL 14235 019 80362 6 198.00 mg/dL 30699 019 17699 0 198.00 mg/dL 42274 020 51093 2 59.00 mm[Hg] - Sitting 131.00 mm[Hg] - Sitting 98.90 Tympanic 99.00 % 69.00/ min 18.00/min 04428 020 04797 7 299.00 mg/dL 31209 020 07589 0 62.00 mm[Hg] - Sitting 132.00 mm[Hg] - Sitting 68.00/ min 04869 020 82383 3 299.00 mg/dL 81673 020 16576 3 299.00 mg/dL 34898 020 59053 9 220.00 mg/dL 68939 020 84989 1 220.00 mg/dL 54132 020 25382 1 270.00 mg/dL 03530 020 95803 4 270.00 mg/dL 30917 020 06953 9 143.00 mg/dL 79334 020 81795 4 143.00 mg/dL 98043 021 55689 0 59.00 mm[Hg] - Sitting 121.00 mm[Hg] - Sitting 98.40 Forehead Scan 98.00 % 70.00/ min 16.00/min 83812 021 41202 0 140.00 mg/dL 57339 021 34610 0 67.00 mm[Hg] - Sitting 130.00 mm[Hg] - Sitting 68.00/ min 71814 021 08050 8 140.00 mg/dL 53908 021 77142 6 140.00 mg/dL 58469 021 91665 8 156.00 mg/dL 98460 021 30648 1 156.00 mg/dL 36541 021 02749 5 146.00 mg/dL 99266 021 66583 4 146.00 mg/dL 67377 021 65996 5 183.00 mg/dL 52215 021 41900 2 183.00 mg/dL 85212 022 10668 3 09029 022 75209 1 43.00 mm[Hg] - Sitting 113.00 mm[Hg] - Sitting 97.80 Tympanic 97.00 % 64.00/ min 18.00/min 49153 022 12250 6 270.00 mg/dL 89784 022 37277 5 68.00 mm[Hg] - Sitting 122.00 mm[Hg] - Sitting 67.00/ min 35971 022 92106 9 270.00 mg/dL 40181 022 38621 4 270.00 mg/dL 15779 022 09487 4 207.00 mg/dL 81282 022 74777 8 207.00 mg/dL 17501 022 56317 9 217.00 mg/dL 00477 022 66019 2 217.00 mg/dL 79715 022 10157 0 192.00 mg/dL 71496 022 26798 9 192.00 mg/dL Immunizations Vaccine Date Status COVID-19 09/20/2023 Completed Other 10/08/2023 Completed Shingles 05/27/2011 Completed Tetanus 04/13/2022 Completed TDaP 04/13/2022 Completed Shingles 2 10/05/2018 Completed
--- OUTSIDE RECORDS SUMMARY | 2024-10-03 11:05 | External Medical Summary | Continuity Of Care Document ---
Author Name Unknown Address [address] [address] Organization [facility] () Care Team Providers Care Wool Handler Name Role Phone DO Machado Amy Primary Care Provider [phone] Allergies Allergy Reaction Start Date End Date [...] 3 0.1 mL 08/29 Inactiv e 2023 12962 44710 0 1 time Intrad ermal False Tubersol 5 tub. unit/0.1 mL intradermal injection solution [Tuberculin PPD] 0.1mL Intradermal 1 time For PPD 2nd Step Give 2nd Step PPD Day 1 and Read results Day 3 (schedule 7 days after 1st READ) 0.1mL 09/08 Inactiv e 2023 65203 21011 0 1 time Intrad ermal False Humalog [...] order For Diabetes 08/25 Inactiv e 2023 14336 75075 9 4 times a day Subcut aneous False Aspirin 325 mg tablet [generic] 325 By Mouth Twice daily For Anticoagulati on 325 09/25 Active 2023 23773 26349 1 Twice daily By Mouth False Ferrous sulfate 325 mg (65 mg iron) tablet [generic] 325 By Mouth Once daily For anemia 325 2023 Active 2023 51240 04529 5 Once daily By Mouth False Linezolid 600 mg tablet [generic] 600 mg By Mouth Every 12 hours For MRSA INFECTION L BKA 600 mg 08/25 Inactiv e 2023 08101 13379 1 Every 12 hours By Mouth False Cefpodoxime 200 mg tablet [generic] 400 mg By Mouth Twice daily For MRSA INFECTION L BKA 400 mg 08/25 Inactiv e 2023 63455 56142 0 Twice daily By Mouth False Coenzyme Q10 100 mg tablet [generic] 100 mg By Mouth Once daily For SUPP 100 mg 2023 Active 2023 43146 00180 0 Once daily By Mouth False Levothyroxi ne 50 mcg tablet [generic] 50mcg By Mouth Once daily For hypothyroidis m 50mcg 2023 Active 2023 77090 03150 0 Once daily By Mouth False One A Day Men Complete 240 mcg-25 mcg-300 mcg tablet 1 tab By Mouth Once daily For supplement 1 tab 2023 Active 2023 90361 71193 1 Once daily By Mouth False Cholecalcif adalberto (vitamin D3) 50 mcg (2,000 unit) tablet [generic] 1 TAB By Mouth Once daily For SUPP 1 TAB 2023 Active 2023 77135 58369 1 Once daily By Mouth False Cetirizine 10 mg tablet [generic] 1 TAB By Mouth At bedtime For Allergies 1 TAB 2023 Active 2023 65017 18666 0 At bedtime By Mouth False Timolol maleate 0.25 % eye drops [generic] 1 drop Both Eyes Twice daily For glaucoma 1 drop 2023 0000 0000 Active 2023 61321 43226 5 Twice daily Both Eyes False Alendronate 35 mg tablet [generic] 35mg By Mouth Every week For SIADH 35mg 08/31 Inactiv e 2023 13113 36495 5 Every week By Mouth False Lantus Solostar U-100 Insulin 100 unit/mL (3 mL) subcutaneou s pen 18 units Subcutaneous Every morning For DIABETES 18 units 08/25 Inactiv e 2023 03613 44012 0 Every morning Subcut aneous False Lantus Solostar U-100 Insulin 100 unit/mL (3 mL) subcutaneou s pen 18 units Subcutaneous Every morning For DIABETES 18 units 2023 Active 2023 95654 40516 0 Every morning Subcut aneous False Linezolid 600 mg tablet [generic] 600 mg By Mouth Every 12 hours For MRSA INFECTION L BKA 600 mg 08/28 Inactiv e 2023 88137 17662 1 Every 12 hours By Mouth False [...] order For Diabetes 08/31 Inactiv e 2023 31925 42469 9 4 times a day Subcut aneous False Cefpodoxime 200 mg tablet [generic] 400 mg By Mouth Twice daily For MRSA INFECTION L BKA 400 mg 08/28 Inactiv e 2023 66249 38867 0 Twice daily By Mouth False Brimonidine 0.1 % eye drops [generic] 1 drop Both Eyes Twice daily For glaucoma 1 drop 2023 Active 2023 98832 46757 0 Twice daily Both Eyes False Metoprolol succinate ER 50 mg tablet,exte nded release 24 hr [generic] 50 mg By Mouth Once daily HOLD FOR SBP <100, or pulse <60 For HTN 50 mg 2023 Active 2023 06376 34270 1 Once daily By Mouth False Amlodipine 2.5 mg tablet [generic] 2.5 mg By Mouth Once daily For HTN 2.5 mg 2023 Active 2023 39497 06234 5 Once daily By Mouth False Docusate sodium 100 mg capsule [generic] 100mg By Mouth Twice daily as needed For constipation HOLD FOR LOOSE STOOLS 100mg 2023 Active 2023 40959 48643 1 Twice daily as needed By Mouth False Atorvastati n 40 mg tablet [generic] 40mg By Mouth Once daily For HDL 40mg 08/26 Inactiv e 2023 74033 67731 5 Once daily By Mouth False Tylenol 325 mg tablet 2 tabs By Mouth Every 4 hours as needed For Pain DO NOT EXCEED 3000 MG APAP/24 Hours 2 tabs 2023 Active 2023 37941 00622 0 Every 4 hours as needed By Mouth False Tylenol 325 mg tablet 2 tabs By Mouth Every 4 hours as needed For Fever >100 DO NOT EXCEED 3000 MG APAP/24 Hours 2 tabs 2023 Active 2023 69377 46979 0 Every 4 hours as needed By Mouth False Dulcolax (bisacodyl) 10 mg rectal suppository One Suppository per rectum PRN if Milk of Magnisia ineffective. Give on day 5 of no BM 1 sup 2023 Active 2023 22428 01689 1 Daily as needed Rectal False Fleet Enema 19 gram-7 gram/118 mL Administer per rectum PRN one time if dulcolax suppository not effective. Give on day 6 of no BM 1 2023 Active 2023 36770 47835 6 Daily as needed Rectal False Dextrose 50 % in water (D50W) intravenous solution [generic] Dextrose 50% evonne 20-50 ml (slow push) Intravenous if Glucagon not effective after 15 minutes. CALL 911 for ED Evaluation. 50% evonne 2023 Active 2023 19764 54382 9 Intrav enous False Glucagon (HCl) Emergency Kit 1 mg solution for injection Administer Glucagon 1 mg Intramuscular if 15 minutes after GLucose Gel is administered Glucose remains less than 70 1 mg 2023 Active 2023 92268 47426 2 Intram uscula r False Glucose Gel 40 % oral gel [Dextrose] PRN If resident is unable to swallow (with or without symptoms) and Glucose results less than 70 give GLucose 40% Gel 1 tube orally - Recheck Glucose 15 minutes after administratio n. 1 tube 2023 Active 2023 91493 95255 8 By Mouth False Milk of Magnesia 400 mg/5 mL oral suspension [Magnesium hydroxide] PRN 30ml By Mouth Daily as needed for constipation one time daily if no BM, on day 4 of no BM (PRN refer to instructions) For Constipation 30 mL 2023 Active 2023 00058 20766 6 Daily as needed By Mouth False Atorvastati n 40 mg tablet [generic] 08/26 Inactiv e 2023 05779 92673 5 Atorvastati n 40 mg tablet [generic] 40mg By Mouth Once daily For HDL 40mg 2023 Active 2023 71029 20447 5 Once daily By Mouth False Insulin aspart (U-100) 100 unit/mL (3 mL) subcutaneou s pen [generic] 15 units Subcutaneous 1 time For dm 15 units 08/26 Inactiv e 2023 46136 03748 5 1 time Subcut aneous False Humalog KwikPen (U-100) Insulin 100 unit/mL subcutaneou s 15 units Subcutaneous 1 time For dm 15 units 08/27 Inactiv e 2023 78569 85800 9 1 time Subcut aneous False Linezolid 600 mg tablet [generic] 600 mg By Mouth Every 12 hours For MRSA INFECTION L BKA 600 mg 09/06 Inactiv e 2023 73740 96038 1 Every 12 hours By Mouth False Cefpodoxime 200 mg tablet [generic] 400 mg By Mouth Twice daily For MRSA INFECTION L BKA 400 mg 08/31 Inactiv e 2023 83596 45740 0 Twice daily By Mouth False Senna 8.6 mg tablet 8.6 mg By Mouth Once daily For Constipation 8.6 mg 09/07 Inactiv e 2023 42493 37677 1 Once daily By Mouth False Humalog [...] abnormalities . Per Carb 2023 Active 2023 67365 58169 9 4 times a day Subcut aneous False Alendronate 35 mg tablet [generic] 08/31 Inactiv e 2023 72434 27555 5 Alendronate 35 mg tablet [generic] 35mg By Mouth Every week For Osteoporosis 35mg 2023 Active 2023 35376 83012 5 Every week By Mouth False ProSource 10 gram-100 kcal/30 mL oral liquid 30 ml By Mouth Once daily For wound healing 30 ml 2023 Active 2023 28746 85208 2 Once daily By Mouth False Clotrimazol e 1 % topical cream [generic] 1 applicaiton Topical Twice daily For tinea, apply to groin rash after cleansing and throughouly drying. Can discontinue order 3 days after rash resolves. 1 applica stacy 09/08 Inactiv e 2023 11809 76298 0 Twice daily Topica l False MAGIC MIX 1:1:1:1 : ZINC OXIDE EXTERNAL OINTMENT 40%; HYDROCOTISO NE EXTERNAL CREAM 1%; NYSTATIN EXTERNAL CREAM 081437R/GM; SILVADENE CREAM 1% Every shift Apply topically to MASD area on coccyx/buttoc ks each shift and as needed for incontinence care For MASD on coccyx layer 2023 Active 2023 Every shift Topica l False Senna 8.6 mg tablet 8.6 mg By Mouth Once daily For Constipation 8.6 mg 09/07 Inactiv e 2023 60421 99161 1 Once daily By Mouth False Senna 8.6 mg tablet 8.6 mg By Mouth Once daily As Needed For Constipation 8.6 mg 2023 Active 2023 42808 96358 1 Once daily By Mouth False BD AutoShield Duo Pen Needle 30 gauge x 3/16in 1 pen needle Subcutaneous 4 times a day For DM 1 pen needle 2023 Active 2023 31099 13059 5 4 times a day Subcut aneous False Hydrocortis one 1 % topical ointment [generic] 1 application Topical Twice daily For tinea *mix 1:1 with clotrimazole cream and apply to clean/dry groin rash 1 applica peggy 09/19 Active 2023 95022 59960 6 Twice daily Topica l False Clotrimazol e 1 % topical cream [generic] 1 applicaiton Topical Twice daily For tinea, apply to groin rash after cleansing and throughouly drying. MIX WITH HYDROCORTISON E Can discontinue order 3 days after rash resolves. 1 applica stacy 2023 Active 2023 19213 17272 0 Twice daily Topica l False Humalog KwikPen (U-100) Insulin 100 unit/mL subcutaneou s 10/10/ 2024 10/10 /2024 Inactiv e 2023 62977 91110 9 MediHoney HCS 4 1/2in X 4 1/2in bandage Cleanse area with NSS, apply one medihoney hydrocolloid dressing, non adherent dressing, kerlix secure with paper tape daily. For wound stage III 1 2023 Active 2023 31074 10659 1 Once daily Topica l False Problems Code Description Start Date End Date Status D64.9 Anemia, unspecified 08/25/2024 Activ e I25.10 Atherosclerotic hear t disease of [place] coronary artery without angina pectoris 08/25/2024 Active [...] weight Temperature SpO2 Blood Sugar Pulse Respirations 98560 8 67.00 mm[Hg] - Sitting 145.00 mm[Hg] - Sitting 98.50 Forehead Scan 96.00 % 81.00/ min 16.00/min 82017 004 55226 2 67.00 mm[Hg] - Sitting 145.00 mm[Hg] - Sitting 98.50 Tympanic 81.00/ min 16.00/min 14479 004 43161 5 56.00 mm[Hg] - Sitting 142.00 mm[Hg] - Sitting 136.40 NI 100.20 Tympanic 96.00 % 92.00/ min 18.00/min 91985 004 13572 6 28820 004 38862 4 143.00 mg/dL 22279 004 25900 0 97.80 Tympanic 71366 005 48445 7 60.00 mm[Hg] - Sitting 140.00 mm[Hg] - Sitting 98.00 Tympanic 84.00/ min 18.00/min 41530 005 25316 0 63.00 mm[Hg] - Sitting 141.00 mm[Hg] - Sitting 98.20 Tympanic 92.00 % 63.00/ min 16.00/min 96728 005 30687 8 69.00 mm[Hg] - Sitting 106.00 mm[Hg] - Sitting 97.20 Tympanic 32721 005 95933 7 69.00/ min 16.00/min 06061 005 78125 3 69.00 mm[Hg] - Sitting 106.00 mm[Hg] - Sitting 98.20 Tympanic 69.00/ min 16.00/min 49971 005 02585 1 367.00 mg/dL 88546 005 94436 2 97.20 Tympanic 70012 005 75427 4 97.20 Tympanic 83626 005 77576 0 69.00 mm[Hg] - Sitting 106.00 mm[Hg] - Sitting 69.00/ min 08314 005 10188 3 452.00 mg/dL 34244 005 43078 3 452.00 mg/dL 98709 005 67723 5 352.00 mg/dL 46714 005 43443 3 352.00 mg/dL 65247 005 32632 7 98.20 Tympanic 24402 005 34254 3 101.00 mg/dL 73287 005 8 101.00 mg/dL 05608 006 63786 4 66.00 mm[Hg] - Sitting 107.00 mm[Hg] - Sitting 98.00 Tympanic 66.00/ min 18.00/min 31829 006 15914 0 62.00 mm[Hg] - Sitting 162.00 mm[Hg] - Sitting 98.20 Tympanic 96.00 % 60.00/ min 16.00/min 17114 006 90375 4 62.00 mm[Hg] - Sitting 162.00 mm[Hg] - Sitting 98.00 Tympanic 70.00/ min 18.00/min 18984 006 97444 8 62.00 mm[Hg] - Sitting 162.00 mm[Hg] - Sitting 98.20 Tympanic 70.00/ min 18.00/min 07871 006 06308 2 66.00 mm[Hg] - Sitting 132.00 mm[Hg] - Sitting 98.60 Tympanic 74.00/ min 16.00/min 22241 006 28748 5 159.00 mg/dL 51060 006 81454 1 159.00 mg/dL 09125 006 10813 8 98.00 Tympanic 68710 006 69458 2 62.00 mm[Hg] - Sitting 162.00 mm[Hg] - Sitting 70.00/ min 01265 006 97692 7 264.00 mg/dL 63711 006 41902 7 264.00 mg/dL 22597 006 90548 4 196.00 mg/dL 67636 006 41302 3 98.20 Tympanic 20059 006 46871 6 271.00 mg/dL 51384 007 52279 3 97.20 Tympanic 45318 007 03437 2 63.00 mm[Hg] - Sitting 132.00 mm[Hg] - Sitting 98.50 Tympanic 94.00 % 66.00/ min 16.00/min 84763 007 83400 5 188.00 mg/dL 87039 007 81429 2 188.00 mg/dL 94524 007 06038 2 188.00 mg/dL 01375 007 29788 7 97.20 Tympanic 87894 007 76221 6 97.20 Tympanic 58378 007 06938 5 67.00 mm[Hg] - Sitting 152.00 mm[Hg] - Sitting 68.00/ min 21739 007 47021 0 141.00 mg/dL 04423 007 37232 3 141.00 mg/dL 64025 007 27228 1 366.00 mg/dL 71304 007 22461 7 366.00 mg/dL 31286 007 59388 7 98.00 Tympanic 84494 007 02973 6 324.00 mg/dL 79369 007 40544 3 98.00 Tympanic 55269 007 14566 7 324.00 mg/dL 01343 008 47375 0 98.00 Tympanic 17402 008 23022 2 97.90 Tympanic 96857 008 18833 0 98.20 Tympanic 16080 008 37089 0 73.00 mm[Hg] - Sitting 156.00 mm[Hg] - Sitting 98.60 Tympanic 99.00 % 66.00/ min 20.00/min 70645 008 55051 5 137.00 mg/dL 54187 008 87890 7 137.00 mg/dL 50212 008 88943 2 97.90 Tympanic 61418 008 19832 1 137.00 mg/dL 54746 008 43256 8 97.90 Tympanic 17251 008 92733 5 67.00 mm[Hg] - Sitting 124.00 /min 24698 008 44494 6 212.00 mg/dL 54460 008 35648 6 212.00 mg/dL 74578 008 91718 9 317.00 mg/dL 03177 008 59586 4 317.00 mg/dL 66883 008 64800 8 252.00 mg/dL 60221 008 78985 0 98.70 Tympanic 97534 008 55422 7 252.00 mg/dL 80182 008 81877 3 98.70 Tympanic 52260 009 20690 9 98.70 Tympanic 60969 009 13230 3 98.20 Tympanic 20990 009 92216 5 98.40 Tympanic 48504 009 67589 5 57.00 mm[Hg] - Sitting 129.00 mm[Hg] - Sitting 98.30 Tympanic 97.00 % 65.00/ min 18.00/min 14989 009 00842 1 255.00 mg/dL 28749 009 30601 4 255.00 mg/dL 92785 009 13600 5 98.20 Tympanic 14796 009 57019 0 255.00 mg/dL 50430 009 99752 0 98.20 Tympanic 09264 009 59179 4 63.00 mm[Hg] - Lying Down 102.00 mm[Hg] - Lying Down 58.00/ min 28964 009 93402 0 167.00 mg/dL 90625 009 65189 1 167.00 mg/dL 86237 009 25558 2 164.00 mg/dL 63029 009 57455 1 164.00 mg/dL 04500 009 53651 5 208.00 mg/dL 93735 010 71195 3 98.40 Tympanic 98775 010 31462 5 98.40 Tympanic 26542 010 75806 7 66 NI 00933 010 38184 4 60.00 mm[Hg] - Sitting 143.00 mm[Hg] - Sitting 98.90 Tympanic 98.00 % 67.00/ min 18.00/min 21880 010 75430 2 214.00 mg/dL 52842 010 81536 0 214.00 mg/dL 63983 010 15127 7 214.00 mg/dL 94362 010 19133 6 64.00 mm[Hg] - Sitting 110.00 mm[Hg] - Sitting 72.00/ min 54969 010 84816 7 98.40 Tympanic 09001 010 76741 1 212.00 mg/dL 66632 010 88112 2 212.00 mg/dL 14712 010 76592 1 115.00 mg/dL 87750 010 96256 0 115.00 mg/dL 31130 010 14067 4 98.50 Tympanic 15253 010 08559 4 150.00 mg/dL 13909 010 54338 0 150.00 mg/dL 97060 011 29414 9 98.60 Tympanic 24000 011 77485 1 67.00 mm[Hg] - Sitting 144.00 mm[Hg] - Sitting 98.20 Tympanic 98.00 % 61.00/ min 18.00/min 48696 011 27415 7 290.00 mg/dL 51930 011 21833 2 290.00 mg/dL 17514 011 92102 2 290.00 mg/dL 99436 011 81778 7 54.00 mm[Hg] - Sitting 136.00 mm[Hg] - Sitting 101.00 /min 08996 011 63423 7 98.60 Tympanic 32389 011 52232 5 240.00 mg/dL 61042 011 06715 1 240.00 mg/dL 92343 011 65224 1 156.00 mg/dL 38626 011 01977 9 156.00 mg/dL 54703 011 60251 0 97.80 Tympanic 28286 011 37401 8 343.00 mg/dL 06658 012 53937 9 97.90 Tympanic 87924 012 10145 2 466.00 mg/dL 10286 012 96738 1 466.00 mg/dL 89116 012 99020 3 466.00 mg/dL 12859 012 53557 8 97.90 Tympanic 00611 012 78933 8 56.00 mm[Hg] - Sitting 96.00 mm[Hg] - Sitting 61.00/ min 86284 012 47906 7 350.00 mg/dL 66076 012 74145 5 350.00 mg/dL 08329 012 40042 6 111.00 mg/dL 91771 012 10273 0 111.00 mg/dL 58246 012 36107 5 98.40 Tympanic 49942 012 00215 6 114.00 mg/dL 05155 013 35734 4 74.00 mm[Hg] - Sitting 112.00 mm[Hg] - Sitting 98.40 Tympanic 70.00/ min 18.00/min 08826 013 07605 8 244.00 mg/dL 72077 013 39425 7 244.00 mg/dL 48221 013 94982 1 244.00 mg/dL 90316 013 76749 1 98.20 Tympanic 72217 013 02705 7 72.00 mm[Hg] - Sitting 119.00 mm[Hg] - Sitting 76.00/ min 26933 013 05478 7 253.00 mg/dL 04806 013 22916 4 253.00 mg/dL 31967 013 78268 9 156.00 mg/dL 33542 013 29138 5 156.00 mg/dL 67272 013 30615 4 97.90 Tympanic 69716 013 25532 5 189.00 mg/dL 09423 014 91453 9 98.10 Tympanic 53786 014 00637 0 61.00 mm[Hg] - Sitting 139.00 mm[Hg] - Sitting 98.20 Forehead Scan 99.00 % 66.00/ min 18.00/min 48611 014 00682 3 169.00 mg/dL 33219 014 97003 3 98.10 Tympanic 38927 014 67092 3 75.00 mm[Hg] - Sitting 121.00 mm[Hg] - Sitting 71.00/ min 23481 014 72802 9 221.00 mg/dL 32520 014 15738 9 62.00 mg/dL 83947 014 00761 5 62.00 mg/dL 59532 014 16473 8 156.00 mg/dL 02661 014 00261 6 98.10 Tympanic 19148 014 99653 7 156.00 mg/dL 78093 015 46307 4 45108 015 67592 7 62.00 mm[Hg] - Sitting 142.00 mm[Hg] - Sitting 98.20 Tympanic 99.00 % 67.00/ min 18.00/min 31513 015 89682 9 120.00 mg/dL 66447 015 67259 7 98.00 Tympanic 78036 015 32231 2 82.00 mm[Hg] - Sitting 119.00 /min 37407 015 55527 9 110.00 mg/dL 22060 015 44735 6 104.00 mg/dL 96033 015 25864 0 100.00 mg/dL 81386 015 17965 2 98.10 Tympanic 79395 015 22111 6 100.00 mg/dL 40496 016 63623 2 67.00 mm[Hg] - Sitting 147.00 mm[Hg] - Sitting 99.00 Tympanic 99.00 % 78.00/ min 20.00/min 15712 016 24588 5 158.00 mg/dL 84730 016 87678 1 158.00 mg/dL 79180 016 44412 2 158.00 mg/dL 13433 016 65919 0 66.00 mm[Hg] - Sitting 121.00 mm[Hg] - Sitting 74.00/ min 65934 016 58535 1 97.00 mg/dL 23222 016 13551 5 97.00 mg/dL 14765 016 00449 4 78.00 mg/dL 96146 016 30023 6 78.00 mg/dL 23460 016 13898 5 248.00 mg/dL 61508 016 86446 8 248.00 mg/dL 61165 017 67104 3 54.00 mm[Hg] - Sitting 142.00 mm[Hg] - Sitting 98.30 Tympanic 99.00 % 76.00/ min 18.00/min 04748 017 36115 4 267.00 mg/dL 04519 017 30957 6 73.00 mm[Hg] - Sitting 109.00 mm[Hg] - Sitting 70.00/ min 70506 017 47333 1 184.00 mg/dL 41831 017 10347 5 184.00 mg/dL 12168 017 05488 9 248.00 mg/dL 01790 017 38881 8 299.00 mg/dL 02293 017 70080 3 299.00 mg/dL 50519 018 90768 7 50.00 mm[Hg] - Sitting 125.00 mm[Hg] - Sitting 98.30 Tympanic 98.00 % 76.00/ min 16.00/min 21762 018 93447 3 168.00 mg/dL 22953 018 91082 0 75.00 mm[Hg] - Sitting 121.00 mm[Hg] - Sitting 70.00/ min 26791 018 90143 7 264.00 mg/dL 42203 018 41308 6 132.00 mg/dL 17304 018 10938 6 154.00 mg/dL 94453 018 74257 6 154.00 mg/dL 44565 019 35720 4 63.00 mm[Hg] - Sitting 147.00 mm[Hg] - Sitting 98.50 Tympanic 99.00 % 69.00/ min 18.00/min 56760 019 60168 9 159.00 mg/dL 35360 019 27927 8 73.00 mm[Hg] - Sitting 110.00 mm[Hg] - Sitting 72.00/ min 58644 019 03468 4 191.00 mg/dL 58603 019 64365 8 70.00 mg/dL 55678 019 90330 4 70.00 mg/dL 49241 019 71693 6 198.00 mg/dL 33281 019 29808 0 198.00 mg/dL 08845 020 92409 2 59.00 mm[Hg] - Sitting 131.00 mm[Hg] - Sitting 98.90 Tympanic 99.00 % 69.00/ min 18.00/min 45205 020 60514 7 299.00 mg/dL 57162 020 90721 0 62.00 mm[Hg] - Sitting 132.00 mm[Hg] - Sitting 68.00/ min 03042 020 11623 3 299.00 mg/dL 18961 020 17309 3 299.00 mg/dL 59451 020 76608 9 220.00 mg/dL 34808 020 45521 1 220.00 mg/dL 39675 020 52738 1 270.00 mg/dL 17268 020 82317 4 270.00 mg/dL 54570 020 69148 9 143.00 mg/dL 92296 020 65857 4 143.00 mg/dL 59810 021 26769 0 59.00 mm[Hg] - Sitting 121.00 mm[Hg] - Sitting 98.40 Forehead Scan 98.00 % 70.00/ min 16.00/min 53466 021 69643 0 140.00 mg/dL 79012 021 09271 0 67.00 mm[Hg] - Sitting 130.00 mm[Hg] - Sitting 68.00/ min 20798 021 05577 8 140.00 mg/dL 62810 021 60091 6 140.00 mg/dL 79766 021 84442 8 156.00 mg/dL 86831 021 19834 1 156.00 mg/dL 91076 021 11831 5 146.00 mg/dL 12772 021 14991 4 146.00 mg/dL 77410 021 39714 5 183.00 mg/dL 52775 021 93429 2 183.00 mg/dL 71516 022 55597 3 63290 022 84288 1 43.00 mm[Hg] - Sitting 113.00 mm[Hg] - Sitting 97.80 Tympanic 97.00 % 64.00/ min 18.00/min 95666 022 75894 6 270.00 mg/dL 75783 022 40061 5 68.00 mm[Hg] - Sitting 122.00 mm[Hg] - Sitting 67.00/ min 88381 022 28188 9 270.00 mg/dL 89494 022 49468 4 270.00 mg/dL 29217 022 94528 4 207.00 mg/dL 62998 022 60272 8 207.00 mg/dL 00676 022 75013 9 217.00 mg/dL 69878 022 03762 2 217.00 mg/dL 49932 022 46497 0 192.00 mg/dL 22877 022 74056 9 192.00 mg/dL 62697 023 98957 9 68.00 mm[Hg] - Sitting 131.00 mm[Hg] - Sitting 68.00/ min 30000 023 54643 8 235.00 mg/dL 46641 023 99967 4 235.00 mg/dL 88703 023 36165 0 235.00 mg/dL 88304 023 51053 0 199.00 mg/dL 69780 023 77946 7 199.00 mg/dL 023 24341 4 233.00 mg/dL 023 98259 3 233.00 mg/dL Immunizations Vaccine Date Status COVID-19 09/20/2023 Completed Other 10/08/2023 Completed Shingles 05/27/2011 Completed Tetanus 04/13/2022 Completed TDaP 04/13/2022 Completed Shingles 2 10/05/2018 Completed
--- OUTSIDE RECORDS SUMMARY | 2024-10-03 11:05 | External Medical Summary | Continuity Of Care Document ---
Author Name Unknown Address [address] [address] Organization [facility] () Care Team Providers Care Credit Card Specialist Name Role Phone DO Machado Amy Primary Care Provider [phone] Allergies Allergy Reaction Start Date End Date [...] 3 0.1 mL 08/29 Inactiv e 2023 66851 66641 0 1 time Intrad ermal False Tubersol 5 tub. unit/0.1 mL intradermal injection solution [Tuberculin PPD] 0.1mL Intradermal 1 time For PPD 2nd Step Give 2nd Step PPD Day 1 and Read results Day 3 (schedule 7 days after 1st READ) 0.1mL 09/08 Inactiv e 2023 46976 05393 0 1 time Intrad ermal False Humalog [...] order For Diabetes 08/25 Inactiv e 2023 99364 02424 9 4 times a day Subcut aneous False Aspirin 325 mg tablet [generic] 325 By Mouth Twice daily For Anticoagulati on 325 09/25 Active 2023 97257 44418 1 Twice daily By Mouth False Ferrous sulfate 325 mg (65 mg iron) tablet [generic] 325 By Mouth Once daily For anemia 325 2023 Active 2023 24939 11241 5 Once daily By Mouth False Linezolid 600 mg tablet [generic] 600 mg By Mouth Every 12 hours For MRSA INFECTION L BKA 600 mg 08/25 Inactiv e 2023 40468 47638 1 Every 12 hours By Mouth False Cefpodoxime 200 mg tablet [generic] 400 mg By Mouth Twice daily For MRSA INFECTION L BKA 400 mg 08/25 Inactiv e 2023 90508 47082 0 Twice daily By Mouth False Coenzyme Q10 100 mg tablet [generic] 100 mg By Mouth Once daily For SUPP 100 mg 2023 Active 2023 99406 41344 0 Once daily By Mouth False Levothyroxi ne 50 mcg tablet [generic] 50mcg By Mouth Once daily For hypothyroidis m 50mcg 2023 Active 2023 61695 02835 0 Once daily By Mouth False One A Day Men Complete 240 mcg-25 mcg-300 mcg tablet 1 tab By Mouth Once daily For supplement 1 tab 2023 Active 2023 26199 25227 1 Once daily By Mouth False Cholecalcif adalberto (vitamin D3) 50 mcg (2,000 unit) tablet [generic] 1 TAB By Mouth Once daily For SUPP 1 TAB 2023 Active 2023 34611 64060 1 Once daily By Mouth False Cetirizine 10 mg tablet [generic] 1 TAB By Mouth At bedtime For Allergies 1 TAB 2023 Active 2023 73529 93217 0 At bedtime By Mouth False Timolol maleate 0.25 % eye drops [generic] 1 drop Both Eyes Twice daily For glaucoma 1 drop 2023 0000 0000 Active 2023 20461 87476 5 Twice daily Both Eyes False Alendronate 35 mg tablet [generic] 35mg By Mouth Every week For SIADH 35mg 08/31 Inactiv e 2023 60666 64449 5 Every week By Mouth False Lantus Solostar U-100 Insulin 100 unit/mL (3 mL) subcutaneou s pen 18 units Subcutaneous Every morning For DIABETES 18 units 08/25 Inactiv e 2023 72492 24578 0 Every morning Subcut aneous False Lantus Solostar U-100 Insulin 100 unit/mL (3 mL) subcutaneou s pen 18 units Subcutaneous Every morning For DIABETES 18 units 2023 Active 2023 22112 70219 0 Every morning Subcut aneous False Linezolid 600 mg tablet [generic] 600 mg By Mouth Every 12 hours For MRSA INFECTION L BKA 600 mg 08/28 Inactiv e 2023 28476 73814 1 Every 12 hours By Mouth False [...] order For Diabetes 08/31 Inactiv e 2023 57846 76470 9 4 times a day Subcut aneous False Cefpodoxime 200 mg tablet [generic] 400 mg By Mouth Twice daily For MRSA INFECTION L BKA 400 mg 08/28 Inactiv e 2023 63167 17277 0 Twice daily By Mouth False Brimonidine 0.1 % eye drops [generic] 1 drop Both Eyes Twice daily For glaucoma 1 drop 2023 Active 2023 84319 16731 0 Twice daily Both Eyes False Metoprolol succinate ER 50 mg tablet,exte nded release 24 hr [generic] 50 mg By Mouth Once daily HOLD FOR SBP <100, or pulse <60 For HTN 50 mg 2023 Active 2023 31114 06102 1 Once daily By Mouth False Amlodipine 2.5 mg tablet [generic] 2.5 mg By Mouth Once daily For HTN 2.5 mg 2023 Active 2023 24024 77519 5 Once daily By Mouth False Docusate sodium 100 mg capsule [generic] 100mg By Mouth Twice daily as needed For constipation HOLD FOR LOOSE STOOLS 100mg 2023 Active 2023 06279 10165 1 Twice daily as needed By Mouth False Atorvastati n 40 mg tablet [generic] 40mg By Mouth Once daily For HDL 40mg 08/26 Inactiv e 2023 93334 36221 5 Once daily By Mouth False Tylenol 325 mg tablet 2 tabs By Mouth Every 4 hours as needed For Pain DO NOT EXCEED 3000 MG APAP/24 Hours 2 tabs 2023 Active 2023 90727 69202 0 Every 4 hours as needed By Mouth False Tylenol 325 mg tablet 2 tabs By Mouth Every 4 hours as needed For Fever >100 DO NOT EXCEED 3000 MG APAP/24 Hours 2 tabs 2023 Active 2023 04625 32343 0 Every 4 hours as needed By Mouth False Dulcolax (bisacodyl) 10 mg rectal suppository One Suppository per rectum PRN if Milk of Magnisia ineffective. Give on day 5 of no BM 1 sup 2023 Active 2023 74121 22448 1 Daily as needed Rectal False Fleet Enema 19 gram-7 gram/118 mL Administer per rectum PRN one time if dulcolax suppository not effective. Give on day 6 of no BM 1 2023 Active 2023 54686 82443 6 Daily as needed Rectal False Dextrose 50 % in water (D50W) intravenous solution [generic] Dextrose 50% evonne 20-50 ml (slow push) Intravenous if Glucagon not effective after 15 minutes. CALL 911 for ED Evaluation. 50% evonne 2023 Active 2023 19639 80738 9 Intrav enous False Glucagon (HCl) Emergency Kit 1 mg solution for injection Administer Glucagon 1 mg Intramuscular if 15 minutes after GLucose Gel is administered Glucose remains less than 70 1 mg 2023 Active 2023 34180 27450 2 Intram uscula r False Glucose Gel 40 % oral gel [Dextrose] PRN If resident is unable to swallow (with or without symptoms) and Glucose results less than 70 give GLucose 40% Gel 1 tube orally - Recheck Glucose 15 minutes after administratio n. 1 tube 2023 Active 2023 17568 13558 8 By Mouth False Milk of Magnesia 400 mg/5 mL oral suspension [Magnesium hydroxide] PRN 30ml By Mouth Daily as needed for constipation one time daily if no BM, on day 4 of no BM (PRN refer to instructions) For Constipation 30 mL 2023 Active 2023 59045 80358 6 Daily as needed By Mouth False Atorvastati n 40 mg tablet [generic] 08/26 Inactiv e 2023 43833 33752 5 Atorvastati n 40 mg tablet [generic] 40mg By Mouth Once daily For HDL 40mg 2023 Active 2023 20005 00492 5 Once daily By Mouth False Insulin aspart (U-100) 100 unit/mL (3 mL) subcutaneou s pen [generic] 15 units Subcutaneous 1 time For dm 15 units 08/26 Inactiv e 2023 16091 04899 5 1 time Subcut aneous False Humalog KwikPen (U-100) Insulin 100 unit/mL subcutaneou s 15 units Subcutaneous 1 time For dm 15 units 08/27 Inactiv e 2023 01950 90512 9 1 time Subcut aneous False Linezolid 600 mg tablet [generic] 600 mg By Mouth Every 12 hours For MRSA INFECTION L BKA 600 mg 09/06 Inactiv e 2023 50623 55160 1 Every 12 hours By Mouth False Cefpodoxime 200 mg tablet [generic] 400 mg By Mouth Twice daily For MRSA INFECTION L BKA 400 mg 08/31 Inactiv e 2023 50404 57566 0 Twice daily By Mouth False Senna 8.6 mg tablet 8.6 mg By Mouth Once daily For Constipation 8.6 mg 09/07 Inactiv e 2023 38221 98671 1 Once daily By Mouth False Humalog [...] abnormalities . Per Carb 2023 Active 2023 38664 10472 9 4 times a day Subcut aneous False Alendronate 35 mg tablet [generic] 08/31 Inactiv e 2023 35341 75258 5 Alendronate 35 mg tablet [generic] 35mg By Mouth Every week For Osteoporosis 35mg 2023 Active 2023 58551 25132 5 Every week By Mouth False ProSource 10 gram-100 kcal/30 mL oral liquid 30 ml By Mouth Once daily For wound healing 30 ml 2023 Active 2023 88470 58785 2 Once daily By Mouth False Clotrimazol e 1 % topical cream [generic] 1 applicaiton Topical Twice daily For tinea, apply to groin rash after cleansing and throughouly drying. Can discontinue order 3 days after rash resolves. 1 applica stacy 09/08 Inactiv e 2023 54093 15462 0 Twice daily Topica l False MAGIC MIX 1:1:1:1 : ZINC OXIDE EXTERNAL OINTMENT 40%; HYDROCOTISO NE EXTERNAL CREAM 1%; NYSTATIN EXTERNAL CREAM 350730V/GM; SILVADENE CREAM 1% Every shift Apply topically to MASD area on coccyx/buttoc ks each shift and as needed for incontinence care For MASD on coccyx layer 2023 Active 2023 Every shift Topica l False Senna 8.6 mg tablet 8.6 mg By Mouth Once daily For Constipation 8.6 mg 09/07 Inactiv e 2023 70041 03763 1 Once daily By Mouth False Senna 8.6 mg tablet 8.6 mg By Mouth Once daily As Needed For Constipation 8.6 mg 2023 Active 2023 24200 83643 1 Once daily By Mouth False BD AutoShield Duo Pen Needle 30 gauge x 3/16in 1 pen needle Subcutaneous 4 times a day For DM 1 pen needle 2023 Active 2023 93614 60995 5 4 times a day Subcut aneous False Hydrocortis one 1 % topical ointment [generic] 1 application Topical Twice daily For tinea *mix 1:1 with clotrimazole cream and apply to clean/dry groin rash 1 applica peggy 09/19 Active 2023 29579 41248 6 Twice daily Topica l False Clotrimazol e 1 % topical cream [generic] 1 applicaiton Topical Twice daily For tinea, apply to groin rash after cleansing and throughouly drying. MIX WITH HYDROCORTISON E Can discontinue order 3 days after rash resolves. 1 applica stacy 2023 Active 2023 35075 70476 0 Twice daily Topica l False Humalog KwikPen (U-100) Insulin 100 unit/mL subcutaneou s 10/10/ 2024 10/10 /2024 Inactiv e 2023 02571 43165 9 MediHoney HCS 4 1/2in X 4 1/2in bandage Cleanse area with NSS, apply one medihoney hydrocolloid dressing, non adherent dressing, kerlix secure with paper tape daily. For wound stage III 1 2023 Active 2023 78167 64049 1 Once daily Topica l False Problems [...] weight Temperature SpO2 Blood Sugar Pulse Respirations 15411 8 67.00 mm[Hg] - Sitting 145.00 mm[Hg] - Sitting 98.50 Forehead Scan 96.00 % 81.00/ min 16.00/min 94393 004 73762 2 67.00 mm[Hg] - Sitting 145.00 mm[Hg] - Sitting 98.50 Tympanic 81.00/ min 16.00/min 36934 004 69163 5 56.00 mm[Hg] - Sitting 142.00 mm[Hg] - Sitting 136.40 NI 100.20 Tympanic 96.00 % 92.00/ min 18.00/min 49160 004 83985 6 68457 004 99560 4 143.00 mg/dL 41159 004 62522 0 97.80 Tympanic 25860 005 70873 7 60.00 mm[Hg] - Sitting 140.00 mm[Hg] - Sitting 98.00 Tympanic 84.00/ min 18.00/min 32512 005 17927 0 63.00 mm[Hg] - Sitting 141.00 mm[Hg] - Sitting 98.20 Tympanic 92.00 % 63.00/ min 16.00/min 42009 005 23673 8 69.00 mm[Hg] - Sitting 106.00 mm[Hg] - Sitting 97.20 Tympanic 21924 005 83183 7 69.00/ min 16.00/min 56399 005 18999 3 69.00 mm[Hg] - Sitting 106.00 mm[Hg] - Sitting 98.20 Tympanic 69.00/ min 16.00/min 75234 005 15423 1 367.00 mg/dL 25987 005 18382 2 97.20 Tympanic 06262 005 43137 4 97.20 Tympanic 02586 005 91250 0 69.00 mm[Hg] - Sitting 106.00 mm[Hg] - Sitting 69.00/ min 14432 005 67933 3 452.00 mg/dL 44826 005 45350 3 452.00 mg/dL 33112 005 93918 5 352.00 mg/dL 02521 005 52674 3 352.00 mg/dL 87339 005 71427 7 98.20 Tympanic 92087 005 3 101.00 mg/dL 15085 005 8 101.00 mg/dL 79629 006 22587 4 66.00 mm[Hg] - Sitting 107.00 mm[Hg] - Sitting 98.00 Tympanic 66.00/ min 18.00/min 58416 006 37174 0 62.00 mm[Hg] - Sitting 162.00 mm[Hg] - Sitting 98.20 Tympanic 96.00 % 60.00/ min 16.00/min 82937 006 45851 4 62.00 mm[Hg] - Sitting 162.00 mm[Hg] - Sitting 98.00 Tympanic 70.00/ min 18.00/min 02298 006 82852 8 62.00 mm[Hg] - Sitting 162.00 mm[Hg] - Sitting 98.20 Tympanic 70.00/ min 18.00/min 01196 006 60427 2 66.00 mm[Hg] - Sitting 132.00 mm[Hg] - Sitting 98.60 Tympanic 74.00/ min 16.00/min 13622 006 59016 5 159.00 mg/dL 81537 006 25219 1 159.00 mg/dL Immunizations Vaccine Date Status COVID-19 09/20/2023 Completed Other 10/08/2023 Completed Shingles 05/27/2011 Completed Tetanus 04/13/2022 Completed TDaP 04/13/2022 Completed Shingles 2 10/05/2018 Completed
--- OUTSIDE RECORDS SUMMARY | 2024-10-03 11:06 | External Medical Summary | Continuity Of Care Document ---
Author Name Unknown Address [address] [address] Organization [facility] () Care Team Providers Care Plate Keeper Name Role Phone DO Machado Amy Primary Care Provider [phone] Allergies Allergy Reaction Start Date End Date [...] 3 0.1 mL 08/29 Inactiv e 2023 10688 26995 0 1 time Intrad ermal False Tubersol 5 tub. unit/0.1 mL intradermal injection solution [Tuberculin PPD] 0.1mL Intradermal 1 time For PPD 2nd Step Give 2nd Step PPD Day 1 and Read results Day 3 (schedule 7 days after 1st READ) 0.1mL 09/08 Inactiv e 2023 28794 56899 0 1 time Intrad ermal False Humalog [...] order For Diabetes 08/25 Inactiv e 2023 92242 18893 9 4 times a day Subcut aneous False Aspirin 325 mg tablet [generic] 325 By Mouth Twice daily For Anticoagulati on 325 09/25 Active 2023 55933 60266 1 Twice daily By Mouth False Ferrous sulfate 325 mg (65 mg iron) tablet [generic] 325 By Mouth Once daily For anemia 325 2023 Active 2023 10970 47011 5 Once daily By Mouth False Linezolid 600 mg tablet [generic] 600 mg By Mouth Every 12 hours For MRSA INFECTION L BKA 600 mg 08/25 Inactiv e 2023 23370 73588 1 Every 12 hours By Mouth False Cefpodoxime 200 mg tablet [generic] 400 mg By Mouth Twice daily For MRSA INFECTION L BKA 400 mg 08/25 Inactiv e 2023 52504 01118 0 Twice daily By Mouth False Coenzyme Q10 100 mg tablet [generic] 100 mg By Mouth Once daily For SUPP 100 mg 2023 Active 2023 64254 93610 0 Once daily By Mouth False Levothyroxi ne 50 mcg tablet [generic] 50mcg By Mouth Once daily For hypothyroidis m 50mcg 2023 Active 2023 74773 51106 0 Once daily By Mouth False One A Day Men Complete 240 mcg-25 mcg-300 mcg tablet 1 tab By Mouth Once daily For supplement 1 tab 2023 Active 2023 24799 46254 1 Once daily By Mouth False Cholecalcif adalberto (vitamin D3) 50 mcg (2,000 unit) tablet [generic] 1 TAB By Mouth Once daily For SUPP 1 TAB 2023 Active 2023 68337 80890 1 Once daily By Mouth False Cetirizine 10 mg tablet [generic] 1 TAB By Mouth At bedtime For Allergies 1 TAB 2023 Active 2023 84608 83208 0 At bedtime By Mouth False Timolol maleate 0.25 % eye drops [generic] 1 drop Both Eyes Twice daily For glaucoma 1 drop 2023 0000 0000 Active 2023 15633 23532 5 Twice daily Both Eyes False Alendronate 35 mg tablet [generic] 35mg By Mouth Every week For SIADH 35mg 08/31 Inactiv e 2023 25026 15603 5 Every week By Mouth False Lantus Solostar U-100 Insulin 100 unit/mL (3 mL) subcutaneou s pen 18 units Subcutaneous Every morning For DIABETES 18 units 08/25 Inactiv e 2023 72009 73799 0 Every morning Subcut aneous False Lantus Solostar U-100 Insulin 100 unit/mL (3 mL) subcutaneou s pen 18 units Subcutaneous Every morning For DIABETES 18 units 2023 Active 2023 18521 97084 0 Every morning Subcut aneous False Linezolid 600 mg tablet [generic] 600 mg By Mouth Every 12 hours For MRSA INFECTION L BKA 600 mg 08/28 Inactiv e 2023 79940 92629 1 Every 12 hours By Mouth False [...] order For Diabetes 08/31 Inactiv e 2023 38895 54586 9 4 times a day Subcut aneous False Cefpodoxime 200 mg tablet [generic] 400 mg By Mouth Twice daily For MRSA INFECTION L BKA 400 mg 08/28 Inactiv e 2023 24141 20317 0 Twice daily By Mouth False Brimonidine 0.1 % eye drops [generic] 1 drop Both Eyes Twice daily For glaucoma 1 drop 2023 Active 2023 21873 44100 0 Twice daily Both Eyes False Metoprolol succinate ER 50 mg tablet,exte nded release 24 hr [generic] 50 mg By Mouth Once daily HOLD FOR SBP <100, or pulse <60 For HTN 50 mg 2023 Active 2023 61545 04626 1 Once daily By Mouth False Amlodipine 2.5 mg tablet [generic] 2.5 mg By Mouth Once daily For HTN 2.5 mg 2023 Active 2023 07256 84480 5 Once daily By Mouth False Docusate sodium 100 mg capsule [generic] 100mg By Mouth Twice daily as needed For constipation HOLD FOR LOOSE STOOLS 100mg 2023 Active 2023 03605 55678 1 Twice daily as needed By Mouth False Atorvastati n 40 mg tablet [generic] 40mg By Mouth Once daily For HDL 40mg 08/26 Inactiv e 2023 41503 07401 5 Once daily By Mouth False Tylenol 325 mg tablet 2 tabs By Mouth Every 4 hours as needed For Pain DO NOT EXCEED 3000 MG APAP/24 Hours 2 tabs 2023 Active 2023 76824 65774 0 Every 4 hours as needed By Mouth False Tylenol 325 mg tablet 2 tabs By Mouth Every 4 hours as needed For Fever >100 DO NOT EXCEED 3000 MG APAP/24 Hours 2 tabs 2023 Active 2023 71529 29086 0 Every 4 hours as needed By Mouth False Dulcolax (bisacodyl) 10 mg rectal suppository One Suppository per rectum PRN if Milk of Magnisia ineffective. Give on day 5 of no BM 1 sup 2023 Active 2023 16759 41510 1 Daily as needed Rectal False Fleet Enema 19 gram-7 gram/118 mL Administer per rectum PRN one time if dulcolax suppository not effective. Give on day 6 of no BM 1 2023 Active 2023 34981 81270 6 Daily as needed Rectal False Dextrose 50 % in water (D50W) intravenous solution [generic] Dextrose 50% evonne 20-50 ml (slow push) Intravenous if Glucagon not effective after 15 minutes. CALL 911 for ED Evaluation. 50% evonne 2023 Active 2023 34714 68162 9 Intrav enous False Glucagon (HCl) Emergency Kit 1 mg solution for injection Administer Glucagon 1 mg Intramuscular if 15 minutes after GLucose Gel is administered Glucose remains less than 70 1 mg 2023 Active 2023 26725 34109 2 Intram uscula r False Glucose Gel 40 % oral gel [Dextrose] PRN If resident is unable to swallow (with or without symptoms) and Glucose results less than 70 give GLucose 40% Gel 1 tube orally - Recheck Glucose 15 minutes after administratio n. 1 tube 2023 Active 2023 48192 36906 8 By Mouth False Milk of Magnesia 400 mg/5 mL oral suspension [Magnesium hydroxide] PRN 30ml By Mouth Daily as needed for constipation one time daily if no BM, on day 4 of no BM (PRN refer to instructions) For Constipation 30 mL 2023 Active 2023 51240 70481 6 Daily as needed By Mouth False Atorvastati n 40 mg tablet [generic] 08/26 Inactiv e 2023 03177 23705 5 Atorvastati n 40 mg tablet [generic] 40mg By Mouth Once daily For HDL 40mg 2023 Active 2023 80280 60269 5 Once daily By Mouth False Insulin aspart (U-100) 100 unit/mL (3 mL) subcutaneou s pen [generic] 15 units Subcutaneous 1 time For dm 15 units 08/26 Inactiv e 2023 36939 83251 5 1 time Subcut aneous False Humalog KwikPen (U-100) Insulin 100 unit/mL subcutaneou s 15 units Subcutaneous 1 time For dm 15 units 08/27 Inactiv e 2023 02573 17770 9 1 time Subcut aneous False Linezolid 600 mg tablet [generic] 600 mg By Mouth Every 12 hours For MRSA INFECTION L BKA 600 mg 09/06 Inactiv e 2023 98115 05089 1 Every 12 hours By Mouth False Cefpodoxime 200 mg tablet [generic] 400 mg By Mouth Twice daily For MRSA INFECTION L BKA 400 mg 08/31 Inactiv e 2023 34560 44309 0 Twice daily By Mouth False Senna 8.6 mg tablet 8.6 mg By Mouth Once daily For Constipation 8.6 mg 09/07 Inactiv e 2023 15740 76562 1 Once daily By Mouth False Humalog [...] abnormalities . Per Carb 2023 Active 2023 00025 30254 9 4 times a day Subcut aneous False Alendronate 35 mg tablet [generic] 08/31 Inactiv e 2023 07792 98953 5 Alendronate 35 mg tablet [generic] 35mg By Mouth Every week For Osteoporosis 35mg 2023 Active 2023 00399 58810 5 Every week By Mouth False ProSource 10 gram-100 kcal/30 mL oral liquid 30 ml By Mouth Once daily For wound healing 30 ml 2023 Active 2023 86677 01485 2 Once daily By Mouth False Clotrimazol e 1 % topical cream [generic] 1 applicaiton Topical Twice daily For tinea, apply to groin rash after cleansing and throughouly drying. Can discontinue order 3 days after rash resolves. 1 applica stacy 09/08 Inactiv e 2023 83563 82785 0 Twice daily Topica l False MAGIC MIX 1:1:1:1 : ZINC OXIDE EXTERNAL OINTMENT 40%; HYDROCOTISO NE EXTERNAL CREAM 1%; NYSTATIN EXTERNAL CREAM 048798Q/GM; SILVADENE CREAM 1% Every shift Apply topically to MASD area on coccyx/buttoc ks each shift and as needed for incontinence care For MASD on coccyx layer 2023 Active 2023 Every shift Topica l False Senna 8.6 mg tablet 8.6 mg By Mouth Once daily For Constipation 8.6 mg 09/07 Inactiv e 2023 66193 03064 1 Once daily By Mouth False Senna 8.6 mg tablet 8.6 mg By Mouth Once daily As Needed For Constipation 8.6 mg 2023 Active 2023 63861 17355 1 Once daily By Mouth False BD AutoShield Duo Pen Needle 30 gauge x 3/16in 1 pen needle Subcutaneous 4 times a day For DM 1 pen needle 2023 Active 2023 41137 63145 5 4 times a day Subcut aneous False Hydrocortis one 1 % topical ointment [generic] 1 application Topical Twice daily For tinea *mix 1:1 with clotrimazole cream and apply to clean/dry groin rash 1 applica peggy 09/19 Active 2023 43138 42802 6 Twice daily Topica l False Clotrimazol e 1 % topical cream [generic] 1 applicaiton Topical Twice daily For tinea, apply to groin rash after cleansing and throughouly drying. MIX WITH HYDROCORTISON E Can discontinue order 3 days after rash resolves. 1 applica stacy 2023 Active 2023 26775 46549 0 Twice daily Topica l False Humalog KwikPen (U-100) Insulin 100 unit/mL subcutaneou s 10/10/ 2024 10/10 /2024 Inactiv e 2023 95130 66155 9 MediHoney HCS 4 1/2in X 4 1/2in bandage Cleanse area with NSS, apply one medihoney hydrocolloid dressing, non adherent dressing, kerlix secure with paper tape daily. For wound stage III 1 2023 Active 2023 92001 28319 1 Once daily Topica l False Problems Code Description Start Date End Date Status D64.9 Anemia, unspecified 08/25/2024 Activ e I25.10 Atherosclerotic hear t disease of [place] coronary artery without angina pectoris 08/25/2024 Active [...] weight Temperature SpO2 Blood Sugar Pulse Respirations 53981 8 67.00 mm[Hg] - Sitting 145.00 mm[Hg] - Sitting 98.50 Forehead Scan 96.00 % 81.00/ min 16.00/min 84110 004 69633 2 67.00 mm[Hg] - Sitting 145.00 mm[Hg] - Sitting 98.50 Tympanic 81.00/ min 16.00/min 56770 004 84102 5 56.00 mm[Hg] - Sitting 142.00 mm[Hg] - Sitting 136.40 NI 100.20 Tympanic 96.00 % 92.00/ min 18.00/min 28904 004 00070 6 19853 004 42397 4 143.00 mg/dL 46797 004 06400 0 97.80 Tympanic 57162 005 97862 7 60.00 mm[Hg] - Sitting 140.00 mm[Hg] - Sitting 98.00 Tympanic 84.00/ min 18.00/min 28450 005 27605 0 63.00 mm[Hg] - Sitting 141.00 mm[Hg] - Sitting 98.20 Tympanic 92.00 % 63.00/ min 16.00/min 77863 005 79864 8 69.00 mm[Hg] - Sitting 106.00 mm[Hg] - Sitting 97.20 Tympanic 14935 005 29118 7 69.00/ min 16.00/min 99403 005 82145 3 69.00 mm[Hg] - Sitting 106.00 mm[Hg] - Sitting 98.20 Tympanic 69.00/ min 16.00/min 62833 005 60425 1 367.00 mg/dL 59091 005 09283 2 97.20 Tympanic 57752 005 94000 4 97.20 Tympanic 08620 005 32150 0 69.00 mm[Hg] - Sitting 106.00 mm[Hg] - Sitting 69.00/ min 06914 005 70860 3 452.00 mg/dL 23862 005 06249 3 452.00 mg/dL 64663 005 55140 5 352.00 mg/dL 56456 005 97786 3 352.00 mg/dL 17838 005 49459 7 98.20 Tympanic 48944 005 31366 3 101.00 mg/dL 67398 005 8 101.00 mg/dL 36879 006 57129 4 66.00 mm[Hg] - Sitting 107.00 mm[Hg] - Sitting 98.00 Tympanic 66.00/ min 18.00/min 53679 006 97146 0 62.00 mm[Hg] - Sitting 162.00 mm[Hg] - Sitting 98.20 Tympanic 96.00 % 60.00/ min 16.00/min 32512 006 64688 4 62.00 mm[Hg] - Sitting 162.00 mm[Hg] - Sitting 98.00 Tympanic 70.00/ min 18.00/min 36720 006 19576 8 62.00 mm[Hg] - Sitting 162.00 mm[Hg] - Sitting 98.20 Tympanic 70.00/ min 18.00/min 27699 006 05555 2 66.00 mm[Hg] - Sitting 132.00 mm[Hg] - Sitting 98.60 Tympanic 74.00/ min 16.00/min 02123 006 41798 5 159.00 mg/dL 05243 006 48769 1 159.00 mg/dL 92254 006 59688 8 98.00 Tympanic 91237 006 56300 2 62.00 mm[Hg] - Sitting 162.00 mm[Hg] - Sitting 70.00/ min 52125 006 35542 7 264.00 mg/dL 54482 006 81190 7 264.00 mg/dL 52990 006 02193 4 196.00 mg/dL 54215 006 61035 3 98.20 Tympanic 98814 006 76126 6 271.00 mg/dL 90953 007 28985 3 97.20 Tympanic 30947 007 93957 2 63.00 mm[Hg] - Sitting 132.00 mm[Hg] - Sitting 98.50 Tympanic 94.00 % 66.00/ min 16.00/min 41255 007 79716 5 188.00 mg/dL 41741 007 23318 2 188.00 mg/dL 10380 007 29639 2 188.00 mg/dL 90335 007 08340 7 97.20 Tympanic 98347 007 35000 6 97.20 Tympanic 70239 007 92151 5 67.00 mm[Hg] - Sitting 152.00 mm[Hg] - Sitting 68.00/ min 88159 007 94128 0 141.00 mg/dL 28305 007 19319 3 141.00 mg/dL 13113 007 61611 1 366.00 mg/dL 76958 007 89746 7 366.00 mg/dL 23156 007 09645 7 98.00 Tympanic 67216 007 64335 6 324.00 mg/dL 11286 007 49106 3 98.00 Tympanic 69847 007 52341 7 324.00 mg/dL 39646 008 67339 0 98.00 Tympanic 42366 008 04495 2 97.90 Tympanic 35269 008 74762 0 98.20 Tympanic 55999 008 58009 0 73.00 mm[Hg] - Sitting 156.00 mm[Hg] - Sitting 98.60 Tympanic 99.00 % 66.00/ min 20.00/min 58573 008 82595 5 137.00 mg/dL 62818 008 48728 7 137.00 mg/dL 88787 008 50029 2 97.90 Tympanic 60222 008 79316 1 137.00 mg/dL 17415 008 17253 8 97.90 Tympanic 64896 008 43241 5 67.00 mm[Hg] - Sitting 124.00 /min 90964 008 56184 6 212.00 mg/dL 24483 008 44601 6 212.00 mg/dL 89492 008 22695 9 317.00 mg/dL 64099 008 53661 4 317.00 mg/dL 81913 008 87263 8 252.00 mg/dL 49683 008 75276 0 98.70 Tympanic 90368 008 64964 7 252.00 mg/dL 83183 008 95408 3 98.70 Tympanic 82044 009 94744 9 98.70 Tympanic 45992 009 19675 3 98.20 Tympanic 59543 009 96163 5 98.40 Tympanic 86047 009 30636 5 57.00 mm[Hg] - Sitting 129.00 mm[Hg] - Sitting 98.30 Tympanic 97.00 % 65.00/ min 18.00/min 24239 009 08488 1 255.00 mg/dL 30737 009 77261 4 255.00 mg/dL 44973 009 03712 5 98.20 Tympanic 82685 009 49201 0 255.00 mg/dL 18494 009 04675 0 98.20 Tympanic 34368 009 92630 4 63.00 mm[Hg] - Lying Down 102.00 mm[Hg] - Lying Down 58.00/ min 61142 009 03798 0 167.00 mg/dL 02442 009 51750 1 167.00 mg/dL 49586 009 23943 2 164.00 mg/dL 37232 009 26119 1 164.00 mg/dL 92919 009 25433 5 208.00 mg/dL 58297 010 05968 3 98.40 Tympanic 11369 010 08955 5 98.40 Tympanic 66138 010 19201 7 66 [place] [address] 010 14652 4 60.00 mm[Hg] - Sitting 143.00 mm[Hg] - Sitting 98.90 Tympanic 98.00 % 67.00/ min 18.00/min 94694 010 41354 2 214.00 mg/dL 32787 010 04306 0 214.00 mg/dL 74112 010 65380 7 214.00 mg/dL 08960 010 87597 6 64.00 mm[Hg] - Sitting 110.00 mm[Hg] - Sitting 72.00/ min 20433 010 87678 7 98.40 Tympanic 06436 010 79703 1 212.00 mg/dL 80230 010 50788 2 212.00 mg/dL 13472 010 56915 1 115.00 mg/dL 36359 010 49717 0 115.00 mg/dL 13698 010 86026 4 98.50 Tympanic 78208 010 26158 4 150.00 mg/dL 99891 010 70594 0 150.00 mg/dL 75012 011 79418 9 98.60 Tympanic 75769 011 75344 1 67.00 mm[Hg] - Sitting 144.00 mm[Hg] - Sitting 98.20 Tympanic 98.00 % 61.00/ min 18.00/min 00893 011 09985 7 290.00 mg/dL 02223 011 10963 2 290.00 mg/dL 39189 011 75982 2 290.00 mg/dL 62109 011 42022 7 54.00 mm[Hg] - Sitting 136.00 mm[Hg] - Sitting 101.00 /min 11409 011 88702 7 98.60 Tympanic 32397 011 52848 5 240.00 mg/dL 59617 011 56650 1 240.00 mg/dL 52736 011 48511 1 156.00 mg/dL 41145 011 57036 9 156.00 mg/dL 30646 011 10028 0 97.80 Tympanic 17231 011 71582 8 343.00 mg/dL 46917 012 90064 9 97.90 Tympanic 02472 012 56285 2 466.00 mg/dL 54301 012 98571 1 466.00 mg/dL 71441 012 46130 3 466.00 mg/dL 40361 012 77771 8 97.90 Tympanic 37077 012 86601 8 56.00 mm[Hg] - Sitting 96.00 mm[Hg] - Sitting 61.00/ min 00740 012 37562 7 350.00 mg/dL 08638 012 62793 5 350.00 mg/dL 64728 012 96398 6 111.00 mg/dL 40795 012 11839 0 111.00 mg/dL 21364 012 03566 5 98.40 Tympanic 11416 012 91363 6 114.00 mg/dL 15480 013 10442 4 74.00 mm[Hg] - Sitting 112.00 mm[Hg] - Sitting 98.40 Tympanic 70.00/ min 18.00/min 18640 013 19917 8 244.00 mg/dL 55954 013 25824 7 244.00 mg/dL 17412 013 18608 1 244.00 mg/dL 42744 013 55802 1 98.20 Tympanic 57152 013 20265 7 72.00 mm[Hg] - Sitting 119.00 mm[Hg] - Sitting 76.00/ min 31671 013 56626 7 253.00 mg/dL 68153 013 93600 4 253.00 mg/dL 99145 013 91583 9 156.00 mg/dL 64353 013 61333 5 156.00 mg/dL 11345 013 62202 4 97.90 Tympanic 17020 013 74612 5 189.00 mg/dL 51692 014 47787 9 98.10 Tympanic 40428 014 93131 0 61.00 mm[Hg] - Sitting 139.00 mm[Hg] - Sitting 98.20 Forehead Scan 99.00 % 66.00/ min 18.00/min 46826 014 83212 3 169.00 mg/dL 16546 014 93056 3 98.10 Tympanic 56557 014 80205 3 75.00 mm[Hg] - Sitting 121.00 mm[Hg] - Sitting 71.00/ min 68319 014 19718 9 221.00 mg/dL 67758 014 73667 9 62.00 mg/dL 76626 014 19036 5 62.00 mg/dL 77794 014 91733 8 156.00 mg/dL 10699 014 06667 6 98.10 Tympanic 25383 014 38602 7 156.00 mg/dL 45450 015 07468 4 08697 015 06737 7 62.00 mm[Hg] - Sitting 142.00 mm[Hg] - Sitting 98.20 Tympanic 99.00 % 67.00/ min 18.00/min 95702 015 81332 9 120.00 mg/dL 42082 015 37979 7 98.00 Tympanic 53271 015 51946 2 82.00 mm[Hg] - Sitting 119.00 /min 33161 015 82543 9 110.00 mg/dL 87132 015 70782 6 104.00 mg/dL 22565 015 86230 0 100.00 mg/dL 72307 015 34325 2 98.10 Tympanic 40781 015 26685 6 100.00 mg/dL 04247 016 58038 2 67.00 mm[Hg] - Sitting 147.00 mm[Hg] - Sitting 99.00 Tympanic 99.00 % 78.00/ min 20.00/min 28686 016 67295 5 158.00 mg/dL 03876 016 33569 1 158.00 mg/dL 81418 016 19483 2 158.00 mg/dL 32675 016 01428 0 66.00 mm[Hg] - Sitting 121.00 mm[Hg] - Sitting 74.00/ min 44389 016 25280 1 97.00 mg/dL 24721 016 29292 5 97.00 mg/dL 58817 016 92379 4 78.00 mg/dL 75890 016 95246 6 78.00 mg/dL 83386 016 18164 5 248.00 mg/dL 75555 016 97030 8 248.00 mg/dL 35797 017 32550 3 54.00 mm[Hg] - Sitting 142.00 mm[Hg] - Sitting 98.30 Tympanic 99.00 % 76.00/ min 18.00/min 84195 017 51356 4 267.00 mg/dL 41368 017 55248 6 73.00 mm[Hg] - Sitting 109.00 mm[Hg] - Sitting 70.00/ min 66839 017 70667 1 184.00 mg/dL 75843 017 36136 5 184.00 mg/dL 68815 017 75659 9 248.00 mg/dL 08440 017 74731 8 299.00 mg/dL 19650 017 84592 3 299.00 mg/dL 58445 018 06428 7 50.00 mm[Hg] - Sitting 125.00 mm[Hg] - Sitting 98.30 Tympanic 98.00 % 76.00/ min 16.00/min 00974 018 58987 3 168.00 mg/dL 60095 018 83937 0 75.00 mm[Hg] - Sitting 121.00 mm[Hg] - Sitting 70.00/ min 70738 018 31154 7 264.00 mg/dL 46487 018 92139 6 132.00 mg/dL 40010 018 57383 6 154.00 mg/dL 68816 018 29506 6 154.00 mg/dL 14852 019 57470 4 63.00 mm[Hg] - Sitting 147.00 mm[Hg] - Sitting 98.50 Tympanic 99.00 % 69.00/ min 18.00/min 18576 019 09110 9 159.00 mg/dL 15985 019 02334 8 73.00 mm[Hg] - Sitting 110.00 mm[Hg] - Sitting 72.00/ min 37902 019 65895 4 191.00 mg/dL 54512 019 88201 8 70.00 mg/dL 58128 019 75049 4 70.00 mg/dL 90715 019 23461 6 198.00 mg/dL 24114 019 42623 0 198.00 mg/dL 00679 020 82489 2 59.00 mm[Hg] - Sitting 131.00 mm[Hg] - Sitting 98.90 Tympanic 99.00 % 69.00/ min 18.00/min 68668 020 27546 7 299.00 mg/dL 35254 020 13435 0 62.00 mm[Hg] - Sitting 132.00 mm[Hg] - Sitting 68.00/ min 04220 020 61033 3 299.00 mg/dL 64311 020 45535 3 299.00 mg/dL 92210 020 14795 9 220.00 mg/dL 34627 020 49162 1 220.00 mg/dL 21713 020 62115 1 270.00 mg/dL 69230 020 30433 4 270.00 mg/dL 65211 020 46524 9 143.00 mg/dL 02767 020 16281 4 143.00 mg/dL 68146 021 69932 0 59.00 mm[Hg] - Sitting 121.00 mm[Hg] - Sitting 98.40 Forehead Scan 98.00 % 70.00/ min 16.00/min 33065 021 43535 0 140.00 mg/dL 40368 021 53262 0 67.00 mm[Hg] - Sitting 130.00 mm[Hg] - Sitting 68.00/ min 41887 021 00979 8 140.00 mg/dL 33043 021 09705 6 140.00 mg/dL 56190 021 37904 8 156.00 mg/dL 64878 021 09689 1 156.00 mg/dL 00961 021 80531 5 146.00 mg/dL 28014 021 61764 4 146.00 mg/dL 50055 021 44150 5 183.00 mg/dL 39202 021 52051 2 183.00 mg/dL 22040 022 25391 3 44164 022 12836 1 43.00 mm[Hg] - Sitting 113.00 mm[Hg] - Sitting 97.80 Tympanic 97.00 % 64.00/ min 18.00/min 31384 022 45058 6 270.00 mg/dL 16970 022 21088 5 68.00 mm[Hg] - Sitting 122.00 mm[Hg] - Sitting 67.00/ min 87131 022 16250 9 270.00 mg/dL 75775 022 93347 4 270.00 mg/dL 55069 022 24218 4 207.00 mg/dL 84003 022 05680 8 207.00 mg/dL 41119 022 42601 9 217.00 mg/dL 22876 022 22406 2 217.00 mg/dL 34311 022 35149 0 192.00 mg/dL 55767 022 25310 9 192.00 mg/dL 78542 023 49142 9 68.00 mm[Hg] - Sitting 131.00 mm[Hg] - Sitting 68.00/ min 83651 023 08970 8 235.00 mg/dL 92165 023 75459 4 235.00 mg/dL 35812 023 52613 0 235.00 mg/dL 62430 023 64351 0 199.00 mg/dL 21378 023 95719 7 199.00 mg/dL Immunizations Vaccine Date Status COVID-19 09/20/2023 Completed Other 10/08/2023 Completed Shingles 05/27/2011 Completed Tetanus 04/13/2022 Completed TDaP 04/13/2022 Completed Shingles 2 10/05/2018 Completed
--- OUTSIDE RECORDS SUMMARY | 2024-10-03 11:06 | External Medical Summary | Continuity Of Care Document ---
Author Name Unknown Address [address] [address] Organization [facility] () Care Team Providers Care Pump Attendant Name Role Phone DO Machado Amy Primary Care Provider [phone] Allergies Allergy Reaction Start Date End Date [...] 3 0.1 mL 08/29 Inactiv e 2023 09242 62895 0 1 time Intrad ermal False Tubersol 5 tub. unit/0.1 mL intradermal injection solution [Tuberculin PPD] 0.1mL Intradermal 1 time For PPD 2nd Step Give 2nd Step PPD Day 1 and Read results Day 3 (schedule 7 days after 1st READ) 0.1mL 09/08 Inactiv e 2023 93355 56840 0 1 time Intrad ermal False Humalog [...] order For Diabetes 08/25 Inactiv e 2023 49116 52954 9 4 times a day Subcut aneous False Aspirin 325 mg tablet [generic] 325 By Mouth Twice daily For Anticoagulati on 325 09/25 Active 2023 85848 07232 1 Twice daily By Mouth False Ferrous sulfate 325 mg (65 mg iron) tablet [generic] 325 By Mouth Once daily For anemia 325 2023 Active 2023 64866 88973 5 Once daily By Mouth False Linezolid 600 mg tablet [generic] 600 mg By Mouth Every 12 hours For MRSA INFECTION L BKA 600 mg 08/25 Inactiv e 2023 29217 13203 1 Every 12 hours By Mouth False Cefpodoxime 200 mg tablet [generic] 400 mg By Mouth Twice daily For MRSA INFECTION L BKA 400 mg 08/25 Inactiv e 2023 47765 39390 0 Twice daily By Mouth False Coenzyme Q10 100 mg tablet [generic] 100 mg By Mouth Once daily For SUPP 100 mg 2023 Active 2023 32393 00875 0 Once daily By Mouth False Levothyroxi ne 50 mcg tablet [generic] 50mcg By Mouth Once daily For hypothyroidis m 50mcg 2023 Active 2023 96824 19817 0 Once daily By Mouth False One A Day Men Complete 240 mcg-25 mcg-300 mcg tablet 1 tab By Mouth Once daily For supplement 1 tab 2023 Active 2023 45295 25190 1 Once daily By Mouth False Cholecalcif adalberto (vitamin D3) 50 mcg (2,000 unit) tablet [generic] 1 TAB By Mouth Once daily For SUPP 1 TAB 2023 Active 2023 01626 75893 1 Once daily By Mouth False Cetirizine 10 mg tablet [generic] 1 TAB By Mouth At bedtime For Allergies 1 TAB 2023 Active 2023 65001 82667 0 At bedtime By Mouth False Timolol maleate 0.25 % eye drops [generic] 1 drop Both Eyes Twice daily For glaucoma 1 drop 2023 0000 0000 Active 2023 23724 37018 5 Twice daily Both Eyes False Alendronate 35 mg tablet [generic] 35mg By Mouth Every week For SIADH 35mg 08/31 Inactiv e 2023 82819 88268 5 Every week By Mouth False Lantus Solostar U-100 Insulin 100 unit/mL (3 mL) subcutaneou s pen 18 units Subcutaneous Every morning For DIABETES 18 units 08/25 Inactiv e 2023 40876 15462 0 Every morning Subcut aneous False Lantus Solostar U-100 Insulin 100 unit/mL (3 mL) subcutaneou s pen 18 units Subcutaneous Every morning For DIABETES 18 units 2023 Active 2023 13476 56673 0 Every morning Subcut aneous False Linezolid 600 mg tablet [generic] 600 mg By Mouth Every 12 hours For MRSA INFECTION L BKA 600 mg 08/28 Inactiv e 2023 39836 48704 1 Every 12 hours By Mouth False [...] order For Diabetes 08/31 Inactiv e 2023 80126 32705 9 4 times a day Subcut aneous False Cefpodoxime 200 mg tablet [generic] 400 mg By Mouth Twice daily For MRSA INFECTION L BKA 400 mg 08/28 Inactiv e 2023 76855 80002 0 Twice daily By Mouth False Brimonidine 0.1 % eye drops [generic] 1 drop Both Eyes Twice daily For glaucoma 1 drop 2023 Active 2023 78704 76002 0 Twice daily Both Eyes False Metoprolol succinate ER 50 mg tablet,exte nded release 24 hr [generic] 50 mg By Mouth Once daily HOLD FOR SBP <100, or pulse <60 For HTN 50 mg 2023 Active 2023 02204 98928 1 Once daily By Mouth False Amlodipine 2.5 mg tablet [generic] 2.5 mg By Mouth Once daily For HTN 2.5 mg 2023 Active 2023 47475 03172 5 Once daily By Mouth False Docusate sodium 100 mg capsule [generic] 100mg By Mouth Twice daily as needed For constipation HOLD FOR LOOSE STOOLS 100mg 2023 Active 2023 25631 02266 1 Twice daily as needed By Mouth False Atorvastati n 40 mg tablet [generic] 40mg By Mouth Once daily For HDL 40mg 08/26 Inactiv e 2023 50622 18250 5 Once daily By Mouth False Tylenol 325 mg tablet 2 tabs By Mouth Every 4 hours as needed For Pain DO NOT EXCEED 3000 MG APAP/24 Hours 2 tabs 2023 Active 2023 02461 71761 0 Every 4 hours as needed By Mouth False Tylenol 325 mg tablet 2 tabs By Mouth Every 4 hours as needed For Fever >100 DO NOT EXCEED 3000 MG APAP/24 Hours 2 tabs 2023 Active 2023 09970 75161 0 Every 4 hours as needed By Mouth False Dulcolax (bisacodyl) 10 mg rectal suppository One Suppository per rectum PRN if Milk of Magnisia ineffective. Give on day 5 of no BM 1 sup 2023 Active 2023 39935 57246 1 Daily as needed Rectal False Fleet Enema 19 gram-7 gram/118 mL Administer per rectum PRN one time if dulcolax suppository not effective. Give on day 6 of no BM 1 2023 Active 2023 91197 77763 6 Daily as needed Rectal False Dextrose 50 % in water (D50W) intravenous solution [generic] Dextrose 50% evonne 20-50 ml (slow push) Intravenous if Glucagon not effective after 15 minutes. CALL 911 for ED Evaluation. 50% evonne 2023 Active 2023 08005 78217 9 Intrav enous False Glucagon (HCl) Emergency Kit 1 mg solution for injection Administer Glucagon 1 mg Intramuscular if 15 minutes after GLucose Gel is administered Glucose remains less than 70 1 mg 2023 Active 2023 62489 23948 2 Intram uscula r False Glucose Gel 40 % oral gel [Dextrose] PRN If resident is unable to swallow (with or without symptoms) and Glucose results less than 70 give GLucose 40% Gel 1 tube orally - Recheck Glucose 15 minutes after administratio n. 1 tube 2023 Active 2023 87576 55037 8 By Mouth False Milk of Magnesia 400 mg/5 mL oral suspension [Magnesium hydroxide] PRN 30ml By Mouth Daily as needed for constipation one time daily if no BM, on day 4 of no BM (PRN refer to instructions) For Constipation 30 mL 2023 Active 2023 97059 80967 6 Daily as needed By Mouth False Atorvastati n 40 mg tablet [generic] 08/26 Inactiv e 2023 96794 60309 5 Atorvastati n 40 mg tablet [generic] 40mg By Mouth Once daily For HDL 40mg 2023 Active 2023 40140 12995 5 Once daily By Mouth False Insulin aspart (U-100) 100 unit/mL (3 mL) subcutaneou s pen [generic] 15 units Subcutaneous 1 time For dm 15 units 08/26 Inactiv e 2023 60690 54989 5 1 time Subcut aneous False Humalog KwikPen (U-100) Insulin 100 unit/mL subcutaneou s 15 units Subcutaneous 1 time For dm 15 units 08/27 Inactiv e 2023 10317 90961 9 1 time Subcut aneous False Linezolid 600 mg tablet [generic] 600 mg By Mouth Every 12 hours For MRSA INFECTION L BKA 600 mg 09/06 Inactiv e 2023 64722 02474 1 Every 12 hours By Mouth False Cefpodoxime 200 mg tablet [generic] 400 mg By Mouth Twice daily For MRSA INFECTION L BKA 400 mg 08/31 Inactiv e 2023 23048 80832 0 Twice daily By Mouth False Senna 8.6 mg tablet 8.6 mg By Mouth Once daily For Constipation 8.6 mg 09/07 Inactiv e 2023 46748 60026 1 Once daily By Mouth False Humalog [...] abnormalities . Per Carb 2023 Active 2023 06175 35402 9 4 times a day Subcut aneous False Alendronate 35 mg tablet [generic] 08/31 Inactiv e 2023 78499 78620 5 Alendronate 35 mg tablet [generic] 35mg By Mouth Every week For Osteoporosis 35mg 2023 Active 2023 07433 02499 5 Every week By Mouth False ProSource 10 gram-100 kcal/30 mL oral liquid 30 ml By Mouth Once daily For wound healing 30 ml 2023 Active 2023 86491 48754 2 Once daily By Mouth False Clotrimazol e 1 % topical cream [generic] 1 applicaiton Topical Twice daily For tinea, apply to groin rash after cleansing and throughouly drying. Can discontinue order 3 days after rash resolves. 1 applica stacy 09/08 Inactiv e 2023 32533 48543 0 Twice daily Topica l False MAGIC MIX 1:1:1:1 : ZINC OXIDE EXTERNAL OINTMENT 40%; HYDROCOTISO NE EXTERNAL CREAM 1%; NYSTATIN EXTERNAL CREAM [id number]/GM; SILVADENE CREAM 1% Every shift Apply topically to MASD area on coccyx/buttoc ks each shift and as needed for incontinence care For MASD on coccyx layer 2023 Active 2023 Every shift Topica l False Senna 8.6 mg tablet 8.6 mg By Mouth Once daily For Constipation 8.6 mg 09/07 Inactiv e 2023 63626 26259 1 Once daily By Mouth False Senna 8.6 mg tablet 8.6 mg By Mouth Once daily As Needed For Constipation 8.6 mg 2023 Active 2023 70834 74017 1 Once daily By Mouth False BD AutoShield Duo Pen Needle 30 gauge x 3/16in 1 pen needle Subcutaneous 4 times a day For DM 1 pen needle 2023 Active 2023 57633 66785 5 4 times a day Subcut aneous False Hydrocortis one 1 % topical ointment [generic] 1 application Topical Twice daily For tinea *mix 1:1 with clotrimazole cream and apply to clean/dry groin rash 1 applica peggy 09/19 Active 2023 93986 91806 6 Twice daily Topica l False Clotrimazol e 1 % topical cream [generic] 1 applicaiton Topical Twice daily For tinea, apply to groin rash after cleansing and throughouly drying. MIX WITH HYDROCORTISON E Can discontinue order 3 days after rash resolves. 1 applica stacy 2023 Active 2023 37700 36385 0 Twice daily Topica l False Humalog KwikPen (U-100) Insulin 100 unit/mL subcutaneou s 10/10/ 2024 10/10 /2024 Inactiv e 2023 06058 01199 9 MediHoney HCS 4 1/2in X 4 1/2in bandage Cleanse area with NSS, apply one medihoney hydrocolloid dressing, non adherent dressing, kerlix secure with paper tape daily. For wound stage III 1 2023 Active 2023 65018 25244 1 Once daily Topica l False Problems Code Description Start Date End Date Status D64.9 Anemia, unspecified 08/25/2024 Activ e I25.10 Atherosclerotic hear t disease of [place] coronary artery without angina pectoris 08/25/2024 Active [...] weight Temperature SpO2 Blood Sugar Pulse Respirations 22976 8 67.00 mm[Hg] - Sitting 145.00 mm[Hg] - Sitting 98.50 Forehead Scan 96.00 % 81.00/ min 16.00/min 82684 004 03764 2 67.00 mm[Hg] - Sitting 145.00 mm[Hg] - Sitting 98.50 Tympanic 81.00/ min 16.00/min 13458 004 64550 5 56.00 mm[Hg] - Sitting 142.00 mm[Hg] - Sitting 136.40 NI 100.20 Tympanic 96.00 % 92.00/ min 18.00/min 64716 004 26639 6 68850 004 56023 4 143.00 mg/dL 00098 004 49203 0 97.80 Tympanic 59319 005 92872 7 60.00 mm[Hg] - Sitting 140.00 mm[Hg] - Sitting 98.00 Tympanic 84.00/ min 18.00/min 59402 005 08981 0 63.00 mm[Hg] - Sitting 141.00 mm[Hg] - Sitting 98.20 Tympanic 92.00 % 63.00/ min 16.00/min 22661 005 21744 8 69.00 mm[Hg] - Sitting 106.00 mm[Hg] - Sitting 97.20 Tympanic 80965 005 08370 7 69.00/ min 16.00/min 21485 005 84647 3 69.00 mm[Hg] - Sitting 106.00 mm[Hg] - Sitting 98.20 Tympanic 69.00/ min 16.00/min 00471 005 05779 1 367.00 mg/dL 21442 005 98141 2 97.20 Tympanic 46901 005 46603 4 97.20 Tympanic 81615 005 28475 0 69.00 mm[Hg] - Sitting 106.00 mm[Hg] - Sitting 69.00/ min 56113 005 71734 3 452.00 mg/dL 56378 005 74978 3 452.00 mg/dL 17941 005 06266 5 352.00 mg/dL 91079 005 14655 3 352.00 mg/dL 81645 005 31456 7 98.20 Tympanic 38173 005 97804 3 101.00 mg/dL 25220 005 8 101.00 mg/dL 40722 006 96187 4 66.00 mm[Hg] - Sitting 107.00 mm[Hg] - Sitting 98.00 Tympanic 66.00/ min 18.00/min 47567 006 47410 0 62.00 mm[Hg] - Sitting 162.00 mm[Hg] - Sitting 98.20 Tympanic 96.00 % 60.00/ min 16.00/min 85476 006 06943 4 62.00 mm[Hg] - Sitting 162.00 mm[Hg] - Sitting 98.00 Tympanic 70.00/ min 18.00/min 43661 006 18481 8 62.00 mm[Hg] - Sitting 162.00 mm[Hg] - Sitting 98.20 Tympanic 70.00/ min 18.00/min 51047 006 43060 2 66.00 mm[Hg] - Sitting 132.00 mm[Hg] - Sitting 98.60 Tympanic 74.00/ min 16.00/min 04060 006 57339 5 159.00 mg/dL 86932 006 46285 1 159.00 mg/dL 71084 006 13162 8 98.00 Tympanic 08068 006 86047 2 62.00 mm[Hg] - Sitting 162.00 mm[Hg] - Sitting 70.00/ min 83023 006 86425 7 264.00 mg/dL 32717 006 94701 7 264.00 mg/dL 58400 006 68824 4 196.00 mg/dL 84085 006 03297 3 98.20 Tympanic 92208 006 61224 6 271.00 mg/dL 24604 007 37361 3 97.20 Tympanic 53046 007 72844 2 63.00 mm[Hg] - Sitting 132.00 mm[Hg] - Sitting 98.50 Tympanic 94.00 % 66.00/ min 16.00/min 55021 007 48679 5 188.00 mg/dL 01795 007 05311 2 188.00 mg/dL 22343 007 73726 2 188.00 mg/dL 44472 007 51485 7 97.20 Tympanic 30618 007 01238 6 97.20 Tympanic 42967 007 74053 5 67.00 mm[Hg] - Sitting 152.00 mm[Hg] - Sitting 68.00/ min 15793 007 36035 0 141.00 mg/dL 31699 007 42785 3 141.00 mg/dL 87054 007 15274 1 366.00 mg/dL 25902 007 02485 7 366.00 mg/dL 30915 007 31673 7 98.00 Tympanic 22803 007 30389 6 324.00 mg/dL 20053 007 12433 3 98.00 Tympanic 46208 007 93608 7 324.00 mg/dL 73999 008 07425 0 98.00 Tympanic 56222 008 94785 2 97.90 Tympanic 79409 008 76063 0 98.20 Tympanic 86145 008 18165 0 73.00 mm[Hg] - Sitting 156.00 mm[Hg] - Sitting 98.60 Tympanic 99.00 % 66.00/ min 20.00/min 36869 008 44957 5 137.00 mg/dL 66785 008 22659 7 137.00 mg/dL 58408 008 74627 2 97.90 Tympanic 03138 008 47529 1 137.00 mg/dL 11691 008 84413 8 97.90 Tympanic 80828 008 96003 5 67.00 mm[Hg] - Sitting 124.00 /min 66415 008 53866 6 212.00 mg/dL 12532 008 53579 6 212.00 mg/dL 16336 008 48467 9 317.00 mg/dL 68780 008 28390 4 317.00 mg/dL 70625 008 50889 8 252.00 mg/dL 16088 008 50859 0 98.70 Tympanic 06998 008 67591 7 252.00 mg/dL 68789 008 79488 3 98.70 Tympanic 93135 009 53970 9 98.70 Tympanic 34092 009 74118 3 98.20 Tympanic 44572 009 79665 5 98.40 Tympanic 95338 009 56966 5 57.00 mm[Hg] - Sitting 129.00 mm[Hg] - Sitting 98.30 Tympanic 97.00 % 65.00/ min 18.00/min 57079 009 15208 1 255.00 mg/dL 41301 009 88544 4 255.00 mg/dL 76764 009 09414 5 98.20 Tympanic 04120 009 40063 0 255.00 mg/dL 99489 009 79340 0 98.20 Tympanic 93147 009 09923 4 63.00 mm[Hg] - Lying Down 102.00 mm[Hg] - Lying Down 58.00/ min 27648 009 66438 0 167.00 mg/dL 61799 009 44301 1 167.00 mg/dL 52299 009 89524 2 164.00 mg/dL 14753 009 57027 1 164.00 mg/dL 84711 009 15437 5 208.00 mg/dL 95752 010 20226 3 98.40 Tympanic 83180 010 62503 5 98.40 Tympanic 79765 010 22817 7 66 NI 90860 010 28283 4 60.00 mm[Hg] - Sitting 143.00 mm[Hg] - Sitting 98.90 Tympanic 98.00 % 67.00/ min 18.00/min 06885 010 44966 2 214.00 mg/dL 33921 010 02195 0 214.00 mg/dL 75135 010 68480 7 214.00 mg/dL 29719 010 76905 6 64.00 mm[Hg] - Sitting 110.00 mm[Hg] - Sitting 72.00/ min 93632 010 29572 7 98.40 Tympanic 34133 010 80959 1 212.00 mg/dL 50494 010 77003 2 212.00 mg/dL 75230 010 52323 1 115.00 mg/dL 87807 010 30686 0 115.00 mg/dL 38695 010 55662 4 98.50 Tympanic 92916 010 55151 4 150.00 mg/dL 70390 010 27036 0 150.00 mg/dL 52380 011 74360 9 98.60 Tympanic 96573 011 39549 1 67.00 mm[Hg] - Sitting 144.00 mm[Hg] - Sitting 98.20 Tympanic 98.00 % 61.00/ min 18.00/min 28693 011 94497 7 290.00 mg/dL 98041 011 93986 2 290.00 mg/dL 70269 011 31866 2 290.00 mg/dL 39564 011 00880 7 54.00 mm[Hg] - Sitting 136.00 mm[Hg] - Sitting 101.00 /min 53382 011 29188 7 98.60 Tympanic 23496 011 62431 5 240.00 mg/dL 80401 011 54596 1 240.00 mg/dL 86943 011 42475 1 156.00 mg/dL 72958 011 78218 9 156.00 mg/dL 78902 011 85412 0 97.80 Tympanic 32055 011 30876 8 343.00 mg/dL 95635 012 77917 9 97.90 Tympanic 01548 012 45003 2 466.00 mg/dL 14371 012 74455 1 466.00 mg/dL 19036 012 02946 3 466.00 mg/dL 65424 012 12135 8 97.90 Tympanic 54073 012 35077 8 56.00 mm[Hg] - Sitting 96.00 mm[Hg] - Sitting 61.00/ min 78957 012 13285 7 350.00 mg/dL 14567 012 56512 5 350.00 mg/dL 19890 012 02421 6 111.00 mg/dL 07111 012 42226 0 111.00 mg/dL 36759 012 29498 5 98.40 Tympanic 36975 012 07005 6 114.00 mg/dL 19742 013 15400 4 74.00 mm[Hg] - Sitting 112.00 mm[Hg] - Sitting 98.40 Tympanic 70.00/ min 18.00/min 08757 013 12345 8 244.00 mg/dL 03669 013 23217 7 244.00 mg/dL 33894 013 79397 1 244.00 mg/dL 79326 013 59997 1 98.20 Tympanic 49515 013 41074 7 72.00 mm[Hg] - Sitting 119.00 mm[Hg] - Sitting 76.00/ min 79639 013 55320 7 253.00 mg/dL 23028 013 54758 4 253.00 mg/dL 56168 013 33975 9 156.00 mg/dL 46003 013 59815 5 156.00 mg/dL 25315 013 26506 4 97.90 Tympanic 75937 013 54361 5 189.00 mg/dL 37488 014 35352 9 98.10 Tympanic 41547 014 03982 0 61.00 mm[Hg] - Sitting 139.00 mm[Hg] - Sitting 98.20 Forehead Scan 99.00 % 66.00/ min 18.00/min 45640 014 23382 3 169.00 mg/dL 03905 014 51084 3 98.10 Tympanic 60881 014 57117 3 75.00 mm[Hg] - Sitting 121.00 mm[Hg] - Sitting 71.00/ min 20213 014 24014 9 221.00 mg/dL 59792 014 33884 9 62.00 mg/dL 81599 014 16481 5 62.00 mg/dL 81294 014 85531 8 156.00 mg/dL 59908 014 34852 6 98.10 Tympanic 33560 014 17165 7 156.00 mg/dL 98957 015 38113 4 23175 015 30337 7 62.00 mm[Hg] - Sitting 142.00 mm[Hg] - Sitting 98.20 Tympanic 99.00 % 67.00/ min 18.00/min 27558 015 65630 9 120.00 mg/dL 07863 015 76128 7 98.00 Tympanic 38576 015 90861 2 82.00 mm[Hg] - Sitting 119.00 /min 69307 015 27012 9 110.00 mg/dL 11477 015 23868 6 104.00 mg/dL 70033 015 20698 0 100.00 mg/dL 08050 015 69857 2 98.10 Tympanic 40819 015 28348 6 100.00 mg/dL 24320 016 09270 2 67.00 mm[Hg] - Sitting 147.00 mm[Hg] - Sitting 99.00 Tympanic 99.00 % 78.00/ min 20.00/min 53464 016 41398 5 158.00 mg/dL 34424 016 25664 1 158.00 mg/dL 76534 016 57444 2 158.00 mg/dL 06448 016 95292 0 66.00 mm[Hg] - Sitting 121.00 mm[Hg] - Sitting 74.00/ min 81416 016 91719 1 97.00 mg/dL 25096 016 01973 5 97.00 mg/dL 83969 016 56212 4 78.00 mg/dL 92807 016 80755 6 78.00 mg/dL 15792 016 10499 5 248.00 mg/dL 44072 016 13212 8 248.00 mg/dL 90943 017 34604 3 54.00 mm[Hg] - Sitting 142.00 mm[Hg] - Sitting 98.30 Tympanic 99.00 % 76.00/ min 18.00/min 57201 017 72273 4 267.00 mg/dL 61540 017 37005 6 73.00 mm[Hg] - Sitting 109.00 mm[Hg] - Sitting 70.00/ min 54605 017 67927 1 184.00 mg/dL 07098 017 81023 5 184.00 mg/dL 76156 017 69906 9 248.00 mg/dL 64360 017 95160 8 299.00 mg/dL 96063 017 86527 3 299.00 mg/dL 73692 018 06665 7 50.00 mm[Hg] - Sitting 125.00 mm[Hg] - Sitting 98.30 Tympanic 98.00 % 76.00/ min 16.00/min 84296 018 43187 3 168.00 mg/dL 61028 018 78178 0 75.00 mm[Hg] - Sitting 121.00 mm[Hg] - Sitting 70.00/ min 22893 018 04673 7 264.00 mg/dL 49865 018 53889 6 132.00 mg/dL 92535 018 06149 6 154.00 mg/dL 23927 018 41021 6 154.00 mg/dL 31651 019 43665 4 63.00 mm[Hg] - Sitting 147.00 mm[Hg] - Sitting 98.50 Tympanic 99.00 % 69.00/ min 18.00/min 46954 019 33748 9 159.00 mg/dL 29996 019 47178 8 73.00 mm[Hg] - Sitting 110.00 mm[Hg] - Sitting 72.00/ min 01003 019 79171 4 191.00 mg/dL 29751 019 69165 8 70.00 mg/dL 31555 019 28344 4 70.00 mg/dL 29333 019 64864 6 198.00 mg/dL 98490 019 49666 0 198.00 mg/dL 72986 020 30991 2 59.00 mm[Hg] - Sitting 131.00 mm[Hg] - Sitting 98.90 Tympanic 99.00 % 69.00/ min 18.00/min 55096 020 66409 7 299.00 mg/dL 33785 020 93650 0 62.00 mm[Hg] - Sitting 132.00 mm[Hg] - Sitting 68.00/ min 70151 020 73483 3 299.00 mg/dL 67679 020 95003 3 299.00 mg/dL 70539 020 97353 9 220.00 mg/dL 49417 020 41951 1 220.00 mg/dL 23435 020 75125 1 270.00 mg/dL 32750 020 06333 4 270.00 mg/dL 53120 020 56081 9 143.00 mg/dL 94760 020 40279 4 143.00 mg/dL 60503 021 61818 0 59.00 mm[Hg] - Sitting 121.00 mm[Hg] - Sitting 98.40 Forehead Scan 98.00 % 70.00/ min 16.00/min 04829 021 70377 0 140.00 mg/dL 33730 021 71541 0 67.00 mm[Hg] - Sitting 130.00 mm[Hg] - Sitting 68.00/ min 37862 021 27474 8 140.00 mg/dL 33051 021 58048 6 140.00 mg/dL 61830 021 61176 8 156.00 mg/dL 01564 021 27199 1 156.00 mg/dL 77974 021 46724 5 146.00 mg/dL 59278 021 65197 4 146.00 mg/dL 87796 021 78715 5 183.00 mg/dL 22287 021 28987 2 183.00 mg/dL 65193 022 02410 3 30305 022 67568 1 43.00 mm[Hg] - Sitting 113.00 mm[Hg] - Sitting 97.80 Tympanic 97.00 % 64.00/ min 18.00/min 91728 022 05644 6 270.00 mg/dL 25504 022 24334 5 68.00 mm[Hg] - Sitting 122.00 mm[Hg] - Sitting 67.00/ min 32228 022 21721 9 270.00 mg/dL 21165 022 99279 4 270.00 mg/dL 73615 022 77780 4 207.00 mg/dL 39660 022 25607 8 207.00 mg/dL 84256 022 41693 9 217.00 mg/dL 98908 022 04501 2 217.00 mg/dL 74366 022 48870 0 192.00 mg/dL 23490 022 39417 9 192.00 mg/dL 76535 023 86620 9 68.00 mm[Hg] - Sitting 131.00 mm[Hg] - Sitting 68.00/ min 69326 023 30615 8 235.00 mg/dL 97242 023 07130 4 235.00 mg/dL 50530 023 16635 0 235.00 mg/dL 26629 023 80638 0 199.00 mg/dL 27286 023 69562 7 199.00 mg/dL Immunizations Vaccine Date Status COVID-19 09/20/2023 Completed Other 10/08/2023 Completed Shingles 05/27/2011 Completed Tetanus 04/13/2022 Completed TDaP 04/13/2022 Completed Shingles 2 10/05/2018 Completed
--- OUTSIDE RECORDS SUMMARY | 2024-10-03 11:06 | External Medical Summary | Continuity Of Care Document ---
Author Name Unknown Address [address] [address] Organization [facility] () Care Team Providers Care Can Marker Name Role Phone DO Macahdo Amy Primary Care Provider [phone] Allergies Allergy Reaction Start Date End Date [...] 3 0.1 mL 08/29 Inactiv e 2023 84136 93406 0 1 time Intrad ermal False Tubersol 5 tub. unit/0.1 mL intradermal injection solution [Tuberculin PPD] 0.1mL Intradermal 1 time For PPD 2nd Step Give 2nd Step PPD Day 1 and Read results Day 3 (schedule 7 days after 1st READ) 0.1mL 09/08 Inactiv e 2023 45287 47583 0 1 time Intrad ermal False Humalog [...] order For Diabetes 08/25 Inactiv e 2023 66848 71473 9 4 times a day Subcut aneous False Aspirin 325 mg tablet [generic] 325 By Mouth Twice daily For Anticoagulati on 325 09/25 Active 2023 17932 68623 1 Twice daily By Mouth False Ferrous sulfate 325 mg (65 mg iron) tablet [generic] 325 By Mouth Once daily For anemia 325 2023 Active 2023 01508 31014 5 Once daily By Mouth False Linezolid 600 mg tablet [generic] 600 mg By Mouth Every 12 hours For MRSA INFECTION L BKA 600 mg 08/25 Inactiv e 2023 29144 83910 1 Every 12 hours By Mouth False Cefpodoxime 200 mg tablet [generic] 400 mg By Mouth Twice daily For MRSA INFECTION L BKA 400 mg 08/25 Inactiv e 2023 78294 38312 0 Twice daily By Mouth False Coenzyme Q10 100 mg tablet [generic] 100 mg By Mouth Once daily For SUPP 100 mg 2023 Active 2023 42278 13662 0 Once daily By Mouth False Levothyroxi ne 50 mcg tablet [generic] 50mcg By Mouth Once daily For hypothyroidis m 50mcg 2023 Active 2023 15086 82018 0 Once daily By Mouth False One A Day Men Complete 240 mcg-25 mcg-300 mcg tablet 1 tab By Mouth Once daily For supplement 1 tab 2023 Active 2023 68833 96614 1 Once daily By Mouth False Cholecalcif adalberto (vitamin D3) 50 mcg (2,000 unit) tablet [generic] 1 TAB By Mouth Once daily For SUPP 1 TAB 2023 Active 2023 52266 40485 1 Once daily By Mouth False Cetirizine 10 mg tablet [generic] 1 TAB By Mouth At bedtime For Allergies 1 TAB 2023 Active 2023 45064 10105 0 At bedtime By Mouth False Timolol maleate 0.25 % eye drops [generic] 1 drop Both Eyes Twice daily For glaucoma 1 drop 2023 0000 0000 Active 2023 15343 70309 5 Twice daily Both Eyes False Alendronate 35 mg tablet [generic] 35mg By Mouth Every week For SIADH 35mg 08/31 Inactiv e 2023 40084 62657 5 Every week By Mouth False Lantus Solostar U-100 Insulin 100 unit/mL (3 mL) subcutaneou s pen 18 units Subcutaneous Every morning For DIABETES 18 units 08/25 Inactiv e 2023 11395 58186 0 Every morning Subcut aneous False Lantus Solostar U-100 Insulin 100 unit/mL (3 mL) subcutaneou s pen 18 units Subcutaneous Every morning For DIABETES 18 units 2023 Active 2023 86204 02399 0 Every morning Subcut aneous False Linezolid 600 mg tablet [generic] 600 mg By Mouth Every 12 hours For MRSA INFECTION L BKA 600 mg 08/28 Inactiv e 2023 63965 63342 1 Every 12 hours By Mouth False [...] order For Diabetes 08/31 Inactiv e 2023 23060 00750 9 4 times a day Subcut aneous False Cefpodoxime 200 mg tablet [generic] 400 mg By Mouth Twice daily For MRSA INFECTION L BKA 400 mg 08/28 Inactiv e 2023 71776 50826 0 Twice daily By Mouth False Brimonidine 0.1 % eye drops [generic] 1 drop Both Eyes Twice daily For glaucoma 1 drop 2023 Active 2023 68724 95236 0 Twice daily Both Eyes False Metoprolol succinate ER 50 mg tablet,exte nded release 24 hr [generic] 50 mg By Mouth Once daily HOLD FOR SBP <100, or pulse <60 For HTN 50 mg 2023 Active 2023 70676 61466 1 Once daily By Mouth False Amlodipine 2.5 mg tablet [generic] 2.5 mg By Mouth Once daily For HTN 2.5 mg 2023 Active 2023 96211 32642 5 Once daily By Mouth False Docusate sodium 100 mg capsule [generic] 100mg By Mouth Twice daily as needed For constipation HOLD FOR LOOSE STOOLS 100mg 2023 Active 2023 38904 55608 1 Twice daily as needed By Mouth False Atorvastati n 40 mg tablet [generic] 40mg By Mouth Once daily For HDL 40mg 08/26 Inactiv e 2023 28140 13668 5 Once daily By Mouth False Tylenol 325 mg tablet 2 tabs By Mouth Every 4 hours as needed For Pain DO NOT EXCEED 3000 MG APAP/24 Hours 2 tabs 2023 Active 2023 18769 04723 0 Every 4 hours as needed By Mouth False Tylenol 325 mg tablet 2 tabs By Mouth Every 4 hours as needed For Fever >100 DO NOT EXCEED 3000 MG APAP/24 Hours 2 tabs 2023 Active 2023 70217 51910 0 Every 4 hours as needed By Mouth False Dulcolax (bisacodyl) 10 mg rectal suppository One Suppository per rectum PRN if Milk of Magnisia ineffective. Give on day 5 of no BM 1 sup 2023 Active 2023 38290 48885 1 Daily as needed Rectal False Fleet Enema 19 gram-7 gram/118 mL Administer per rectum PRN one time if dulcolax suppository not effective. Give on day 6 of no BM 1 2023 Active 2023 85745 13031 6 Daily as needed Rectal False Dextrose 50 % in water (D50W) intravenous solution [generic] Dextrose 50% evonne 20-50 ml (slow push) Intravenous if Glucagon not effective after 15 minutes. CALL 911 for ED Evaluation. 50% evonne 2023 Active 2023 80881 26588 9 Intrav enous False Glucagon (HCl) Emergency Kit 1 mg solution for injection Administer Glucagon 1 mg Intramuscular if 15 minutes after GLucose Gel is administered Glucose remains less than 70 1 mg 2023 Active 2023 27594 96645 2 Intram uscula r False Glucose Gel 40 % oral gel [Dextrose] PRN If resident is unable to swallow (with or without symptoms) and Glucose results less than 70 give GLucose 40% Gel 1 tube orally - Recheck Glucose 15 minutes after administratio n. 1 tube 2023 Active 2023 83006 94114 8 By Mouth False Milk of Magnesia 400 mg/5 mL oral suspension [Magnesium hydroxide] PRN 30ml By Mouth Daily as needed for constipation one time daily if no BM, on day 4 of no BM (PRN refer to instructions) For Constipation 30 mL 2023 Active 2023 61002 09282 6 Daily as needed By Mouth False Atorvastati n 40 mg tablet [generic] 08/26 Inactiv e 2023 90650 80686 5 Atorvastati n 40 mg tablet [generic] 40mg By Mouth Once daily For HDL 40mg 2023 Active 2023 40304 00122 5 Once daily By Mouth False Insulin aspart (U-100) 100 unit/mL (3 mL) subcutaneou s pen [generic] 15 units Subcutaneous 1 time For dm 15 units 08/26 Inactiv e 2023 10028 22902 5 1 time Subcut aneous False Humalog KwikPen (U-100) Insulin 100 unit/mL subcutaneou s 15 units Subcutaneous 1 time For dm 15 units 08/27 Inactiv e 2023 95502 32235 9 1 time Subcut aneous False Linezolid 600 mg tablet [generic] 600 mg By Mouth Every 12 hours For MRSA INFECTION L BKA 600 mg 09/06 Inactiv e 2023 23803 44944 1 Every 12 hours By Mouth False Cefpodoxime 200 mg tablet [generic] 400 mg By Mouth Twice daily For MRSA INFECTION L BKA 400 mg 08/31 Inactiv e 2023 10045 57847 0 Twice daily By Mouth False Senna 8.6 mg tablet 8.6 mg By Mouth Once daily For Constipation 8.6 mg 09/07 Inactiv e 2023 98456 01772 1 Once daily By Mouth False Humalog [...] abnormalities . Per Carb 2023 Active 2023 51725 97167 9 4 times a day Subcut aneous False Alendronate 35 mg tablet [generic] 08/31 Inactiv e 2023 25891 32086 5 Alendronate 35 mg tablet [generic] 35mg By Mouth Every week For Osteoporosis 35mg 2023 Active 2023 78118 72276 5 Every week By Mouth False ProSource 10 gram-100 kcal/30 mL oral liquid 30 ml By Mouth Once daily For wound healing 30 ml 2023 Active 2023 63986 61249 2 Once daily By Mouth False Clotrimazol e 1 % topical cream [generic] 1 applicaiton Topical Twice daily For tinea, apply to groin rash after cleansing and throughouly drying. Can discontinue order 3 days after rash resolves. 1 applica stacy 09/08 Inactiv e 2023 41375 46353 0 Twice daily Topica l False MAGIC MIX 1:1:1:1 : ZINC OXIDE EXTERNAL OINTMENT 40%; HYDROCOTISO NE EXTERNAL CREAM 1%; NYSTATIN EXTERNAL CREAM 007885C/GM; SILVADENE CREAM 1% Every shift Apply topically to MASD area on coccyx/buttoc ks each shift and as needed for incontinence care For MASD on coccyx layer 2023 Active 2023 Every shift Topica l False Senna 8.6 mg tablet 8.6 mg By Mouth Once daily For Constipation 8.6 mg 09/07 Inactiv e 2023 91494 00161 1 Once daily By Mouth False Senna 8.6 mg tablet 8.6 mg By Mouth Once daily As Needed For Constipation 8.6 mg 2023 Active 2023 04780 20219 1 Once daily By Mouth False BD AutoShield Duo Pen Needle 30 gauge x 3/16in 1 pen needle Subcutaneous 4 times a day For DM 1 pen needle 2023 Active 2023 67359 79646 5 4 times a day Subcut aneous False Hydrocortis one 1 % topical ointment [generic] 1 application Topical Twice daily For tinea *mix 1:1 with clotrimazole cream and apply to clean/dry groin rash 1 applica peggy 09/19 Active 2023 44225 13803 6 Twice daily Topica l False Clotrimazol e 1 % topical cream [generic] 1 applicaiton Topical Twice daily For tinea, apply to groin rash after cleansing and throughouly drying. MIX WITH HYDROCORTISON E Can discontinue order 3 days after rash resolves. 1 applica stacy 2023 Active 2023 08004 97410 0 Twice daily Topica l False Humalog KwikPen (U-100) Insulin 100 unit/mL subcutaneou s 10/10/ 2024 10/10 /2024 Inactiv e 2023 11064 85444 9 MediHoney HCS 4 1/2in X 4 1/2in bandage Cleanse area with NSS, apply one medihoney hydrocolloid dressing, non adherent dressing, kerlix secure with paper tape daily. For wound stage III 1 2023 Active 2023 48547 59670 1 Once daily Topica l False Problems Code Description Start Date End Date Status D64.9 Anemia, unspecified 08/25/2024 Activ e I25.10 Atherosclerotic hear t disease of [place] coronary artery without angina pectoris 08/25/2024 Active [...] weight Temperature SpO2 Blood Sugar Pulse Respirations 14700 8 67.00 mm[Hg] - Sitting 145.00 mm[Hg] - Sitting 98.50 Forehead Scan 96.00 % 81.00/ min 16.00/min 94621 004 39820 2 67.00 mm[Hg] - Sitting 145.00 mm[Hg] - Sitting 98.50 Tympanic 81.00/ min 16.00/min 69025 004 29878 5 56.00 mm[Hg] - Sitting 142.00 mm[Hg] - Sitting 136.40 NI 100.20 Tympanic 96.00 % 92.00/ min 18.00/min 89772 004 99738 6 49532 004 77065 4 143.00 mg/dL 14147 004 39536 0 97.80 Tympanic 64569 005 10402 7 60.00 mm[Hg] - Sitting 140.00 mm[Hg] - Sitting 98.00 Tympanic 84.00/ min 18.00/min 89041 005 08486 0 63.00 mm[Hg] - Sitting 141.00 mm[Hg] - Sitting 98.20 Tympanic 92.00 % 63.00/ min 16.00/min 79739 005 90887 8 69.00 mm[Hg] - Sitting 106.00 mm[Hg] - Sitting 97.20 Tympanic 82635 005 95122 7 69.00/ min 16.00/min 97193 005 41585 3 69.00 mm[Hg] - Sitting 106.00 mm[Hg] - Sitting 98.20 Tympanic 69.00/ min 16.00/min 91955 005 41415 1 367.00 mg/dL 94459 005 37880 2 97.20 Tympanic 20366 005 58179 4 97.20 Tympanic 99915 005 53601 0 69.00 mm[Hg] - Sitting 106.00 mm[Hg] - Sitting 69.00/ min 74433 005 14490 3 452.00 mg/dL 45855 005 17567 3 452.00 mg/dL 59990 005 76473 5 352.00 mg/dL 23777 005 85509 3 352.00 mg/dL 99191 005 56715 7 98.20 Tympanic 12939 005 24817 3 101.00 mg/dL 30160 005 8 101.00 mg/dL 28472 006 54231 4 66.00 mm[Hg] - Sitting 107.00 mm[Hg] - Sitting 98.00 Tympanic 66.00/ min 18.00/min 33584 006 72945 0 62.00 mm[Hg] - Sitting 162.00 mm[Hg] - Sitting 98.20 Tympanic 96.00 % 60.00/ min 16.00/min 84711 006 55486 4 62.00 mm[Hg] - Sitting 162.00 mm[Hg] - Sitting 98.00 Tympanic 70.00/ min 18.00/min 61063 006 85754 8 62.00 mm[Hg] - Sitting 162.00 mm[Hg] - Sitting 98.20 Tympanic 70.00/ min 18.00/min 37764 006 49583 2 66.00 mm[Hg] - Sitting 132.00 mm[Hg] - Sitting 98.60 Tympanic 74.00/ min 16.00/min 67965 006 63775 5 159.00 mg/dL 19103 006 18031 1 159.00 mg/dL 12061 006 32605 8 98.00 Tympanic 30489 006 08846 2 62.00 mm[Hg] - Sitting 162.00 mm[Hg] - Sitting 70.00/ min 96028 006 59954 7 264.00 mg/dL 64043 006 43690 7 264.00 mg/dL 79387 006 81775 4 196.00 mg/dL 09269 006 05388 3 98.20 Tympanic 22441 006 23674 6 271.00 mg/dL 81703 007 09745 3 97.20 Tympanic 95595 007 23939 2 63.00 mm[Hg] - Sitting 132.00 mm[Hg] - Sitting 98.50 Tympanic 94.00 % 66.00/ min 16.00/min 26941 007 24301 5 188.00 mg/dL 81214 007 62579 2 188.00 mg/dL 65006 007 46644 2 188.00 mg/dL 72622 007 44052 7 97.20 Tympanic 29000 007 78105 6 97.20 Tympanic 96298 007 26761 5 67.00 mm[Hg] - Sitting 152.00 mm[Hg] - Sitting 68.00/ min 97654 007 59575 0 141.00 mg/dL 85021 007 19026 3 141.00 mg/dL 65863 007 14430 1 366.00 mg/dL 16821 007 51293 7 366.00 mg/dL 53248 007 38199 7 98.00 Tympanic 02216 007 31119 6 324.00 mg/dL 63964 007 24067 3 98.00 Tympanic 69346 007 54296 7 324.00 mg/dL 43517 008 00918 0 98.00 Tympanic 09630 008 68323 2 97.90 Tympanic 75962 008 06265 0 98.20 Tympanic 12437 008 13720 0 73.00 mm[Hg] - Sitting 156.00 mm[Hg] - Sitting 98.60 Tympanic 99.00 % 66.00/ min 20.00/min 22602 008 34568 5 137.00 mg/dL 01569 008 88718 7 137.00 mg/dL 34926 008 53686 2 97.90 Tympanic 01049 008 08288 1 137.00 mg/dL 69493 008 51803 8 97.90 Tympanic 38676 008 72236 5 67.00 mm[Hg] - Sitting 124.00 /min 64369 008 62253 6 212.00 mg/dL 00669 008 56795 6 212.00 mg/dL 81960 008 88149 9 317.00 mg/dL 53169 008 48876 4 317.00 mg/dL 70680 008 55463 8 252.00 mg/dL 56280 008 82676 0 98.70 Tympanic 77080 008 80826 7 252.00 mg/dL 49074 008 91906 3 98.70 Tympanic 26377 009 40698 9 98.70 Tympanic 81204 009 14782 3 98.20 Tympanic 62618 009 41433 5 98.40 Tympanic 53385 009 30479 5 57.00 mm[Hg] - Sitting 129.00 mm[Hg] - Sitting 98.30 Tympanic 97.00 % 65.00/ min 18.00/min 05835 009 59293 1 255.00 mg/dL 65392 009 97748 4 255.00 mg/dL 55079 009 85845 5 98.20 Tympanic 64873 009 41215 0 255.00 mg/dL 73810 009 83142 0 98.20 Tympanic 31695 009 45107 4 63.00 mm[Hg] - Lying Down 102.00 mm[Hg] - Lying Down 58.00/ min 54596 009 64127 0 167.00 mg/dL 28804 009 90828 1 167.00 mg/dL 73660 009 53910 2 164.00 mg/dL 50253 009 40544 1 164.00 mg/dL 76157 009 65958 5 208.00 mg/dL 19941 010 00874 3 98.40 Tympanic 59853 010 56805 5 98.40 Tympanic 50722 010 26072 7 66 [place] 80146 010 91486 4 60.00 mm[Hg] - Sitting 143.00 mm[Hg] - Sitting 98.90 Tympanic 98.00 % 67.00/ min 18.00/min 46135 010 34881 2 214.00 mg/dL 71697 010 43729 0 214.00 mg/dL 40720 010 15054 7 214.00 mg/dL 16128 010 65277 6 64.00 mm[Hg] - Sitting 110.00 mm[Hg] - Sitting 72.00/ min 46364 010 11663 7 98.40 Tympanic 11327 010 04544 1 212.00 mg/dL 28133 010 13376 2 212.00 mg/dL 99796 010 78265 1 115.00 mg/dL 70321 010 13734 0 115.00 mg/dL 82245 010 76686 4 98.50 Tympanic 75046 010 36163 4 150.00 mg/dL 02422 010 54748 0 150.00 mg/dL 51166 011 80506 9 98.60 Tympanic 81083 011 99347 1 67.00 mm[Hg] - Sitting 144.00 mm[Hg] - Sitting 98.20 Tympanic 98.00 % 61.00/ min 18.00/min 28860 011 40036 7 290.00 mg/dL 08215 011 59850 2 290.00 mg/dL 14481 011 38215 2 290.00 mg/dL 38332 011 13845 7 54.00 mm[Hg] - Sitting 136.00 mm[Hg] - Sitting 101.00 /min 30775 011 06943 7 98.60 Tympanic 02777 011 91192 5 240.00 mg/dL 25201 011 66024 1 240.00 mg/dL 48013 011 01683 1 156.00 mg/dL 37489 011 97623 9 156.00 mg/dL 47944 011 80820 0 97.80 Tympanic 30288 011 87955 8 343.00 mg/dL 15421 012 37810 9 97.90 Tympanic 17174 012 65478 2 466.00 mg/dL 45944 012 09845 1 466.00 mg/dL 09217 012 37300 3 466.00 mg/dL 67861 012 92396 8 97.90 Tympanic 13844 012 49254 8 56.00 mm[Hg] - Sitting 96.00 mm[Hg] - Sitting 61.00/ min 97757 012 96919 7 350.00 mg/dL 55428 012 67699 5 350.00 mg/dL 21637 012 55148 6 111.00 mg/dL 30834 012 23352 0 111.00 mg/dL 61633 012 30336 5 98.40 Tympanic 06481 012 51675 6 114.00 mg/dL 00386 013 33168 4 74.00 mm[Hg] - Sitting 112.00 mm[Hg] - Sitting 98.40 Tympanic 70.00/ min 18.00/min 02046 013 41733 8 244.00 mg/dL 79842 013 90127 7 244.00 mg/dL 51086 013 33623 1 244.00 mg/dL 59185 013 21853 1 98.20 Tympanic 86136 013 27077 7 72.00 mm[Hg] - Sitting 119.00 mm[Hg] - Sitting 76.00/ min 83872 013 77757 7 253.00 mg/dL 37028 013 38719 4 253.00 mg/dL 04511 013 72636 9 156.00 mg/dL 19208 013 22508 5 156.00 mg/dL 60541 013 56770 4 97.90 Tympanic 40037 013 53228 5 189.00 mg/dL 54478 014 39555 9 98.10 Tympanic 97448 014 77795 0 61.00 mm[Hg] - Sitting 139.00 mm[Hg] - Sitting 98.20 Forehead Scan 99.00 % 66.00/ min 18.00/min 32422 014 18017 3 169.00 mg/dL 43877 014 26795 3 98.10 Tympanic 24321 014 25720 3 75.00 mm[Hg] - Sitting 121.00 mm[Hg] - Sitting 71.00/ min 06005 014 19822 9 221.00 mg/dL 59079 014 89951 9 62.00 mg/dL 32486 014 83955 5 62.00 mg/dL 91544 014 16671 8 156.00 mg/dL 39123 014 47110 6 98.10 Tympanic 22999 014 35415 7 156.00 mg/dL 66399 015 53050 4 23638 015 09919 7 62.00 mm[Hg] - Sitting 142.00 mm[Hg] - Sitting 98.20 Tympanic 99.00 % 67.00/ min 18.00/min 91426 015 93243 9 120.00 mg/dL 21704 015 37261 7 98.00 Tympanic 47923 015 24954 2 82.00 mm[Hg] - Sitting 119.00 /min 94707 015 80043 9 110.00 mg/dL 22682 015 46006 6 104.00 mg/dL 06488 015 75768 0 100.00 mg/dL 78777 015 29207 2 98.10 Tympanic 19743 015 41404 6 100.00 mg/dL 03294 016 06714 2 67.00 mm[Hg] - Sitting 147.00 mm[Hg] - Sitting 99.00 Tympanic 99.00 % 78.00/ min 20.00/min 57864 016 76599 5 158.00 mg/dL 37330 016 18067 1 158.00 mg/dL 80892 016 16101 2 158.00 mg/dL 47634 016 50853 0 66.00 mm[Hg] - Sitting 121.00 mm[Hg] - Sitting 74.00/ min 29442 016 15983 1 97.00 mg/dL 91929 016 29404 5 97.00 mg/dL 37530 016 37476 4 78.00 mg/dL 21233 016 59892 6 78.00 mg/dL 89477 016 71309 5 248.00 mg/dL 81518 016 31410 8 248.00 mg/dL 60394 017 35664 3 54.00 mm[Hg] - Sitting 142.00 mm[Hg] - Sitting 98.30 Tympanic 99.00 % 76.00/ min 18.00/min 68646 017 94377 4 267.00 mg/dL 59260 017 29044 6 73.00 mm[Hg] - Sitting 109.00 mm[Hg] - Sitting 70.00/ min 56523 017 13549 1 184.00 mg/dL 49186 017 47028 5 184.00 mg/dL 71027 017 29164 9 248.00 mg/dL 22125 017 02035 8 299.00 mg/dL 35561 017 35298 3 299.00 mg/dL 68681 018 36010 7 50.00 mm[Hg] - Sitting 125.00 mm[Hg] - Sitting 98.30 Tympanic 98.00 % 76.00/ min 16.00/min 51433 018 59661 3 168.00 mg/dL 16723 018 58299 0 75.00 mm[Hg] - Sitting 121.00 mm[Hg] - Sitting 70.00/ min 01587 018 33354 7 264.00 mg/dL 04422 018 60446 6 132.00 mg/dL 40104 018 02853 6 154.00 mg/dL 95601 018 93500 6 154.00 mg/dL 74667 019 93836 4 63.00 mm[Hg] - Sitting 147.00 mm[Hg] - Sitting 98.50 Tympanic 99.00 % 69.00/ min 18.00/min 23250 019 73003 9 159.00 mg/dL 22154 019 15661 8 73.00 mm[Hg] - Sitting 110.00 mm[Hg] - Sitting 72.00/ min 35127 019 44877 4 191.00 mg/dL 52597 019 09896 8 70.00 mg/dL 19481 019 71408 4 70.00 mg/dL 65349 019 04706 6 198.00 mg/dL 76051 019 92765 0 198.00 mg/dL 28071 020 11635 2 59.00 mm[Hg] - Sitting 131.00 mm[Hg] - Sitting 98.90 Tympanic 99.00 % 69.00/ min 18.00/min 40985 020 26830 7 299.00 mg/dL 98526 020 37142 0 62.00 mm[Hg] - Sitting 132.00 mm[Hg] - Sitting 68.00/ min 06023 020 34979 3 299.00 mg/dL 85864 020 24048 3 299.00 mg/dL 92844 020 82593 9 220.00 mg/dL 72364 020 46129 1 220.00 mg/dL 05923 020 67214 1 270.00 mg/dL 24403 020 44263 4 270.00 mg/dL 04390 020 96928 9 143.00 mg/dL 95128 020 39170 4 143.00 mg/dL 52891 021 28807 0 59.00 mm[Hg] - Sitting 121.00 mm[Hg] - Sitting 98.40 Forehead Scan 98.00 % 70.00/ min 16.00/min 56453 021 08818 0 140.00 mg/dL 50466 021 20338 0 67.00 mm[Hg] - Sitting 130.00 mm[Hg] - Sitting 68.00/ min 19661 021 88063 8 140.00 mg/dL 37315 021 41452 6 140.00 mg/dL 56135 021 72422 8 156.00 mg/dL 65588 021 35195 1 156.00 mg/dL 12491 021 14020 5 146.00 mg/dL 63930 021 38076 4 146.00 mg/dL 04832 021 89353 5 183.00 mg/dL 12181 021 39044 2 183.00 mg/dL 99880 022 93877 3 99240 022 40847 1 43.00 mm[Hg] - Sitting 113.00 mm[Hg] - Sitting 97.80 Tympanic 97.00 % 64.00/ min 18.00/min 33810 022 78386 6 270.00 mg/dL 20964 022 43314 5 68.00 mm[Hg] - Sitting 122.00 mm[Hg] - Sitting 67.00/ min 08839 022 48321 9 270.00 mg/dL 44846 022 01772 4 270.00 mg/dL 59839 022 05934 4 207.00 mg/dL 38636 022 61077 8 207.00 mg/dL 73112 022 80898 9 217.00 mg/dL 65434 022 64193 2 217.00 mg/dL 83482 022 03937 0 192.00 mg/dL 13259 022 96522 9 192.00 mg/dL 90865 023 92253 9 68.00 mm[Hg] - Sitting 131.00 mm[Hg] - Sitting 68.00/ min 82609 023 92320 8 235.00 mg/dL 45519 023 49980 4 235.00 mg/dL 75159 023 00520 0 235.00 mg/dL 65816 023 70103 0 199.00 mg/dL 91303 023 03841 7 199.00 mg/dL Immunizations Vaccine Date Status COVID-19 09/20/2023 Completed Other 10/08/2023 Completed Shingles 05/27/2011 Completed Tetanus 04/13/2022 Completed TDaP 04/13/2022 Completed Shingles 2 10/05/2018 Completed
--- OUTSIDE RECORDS SUMMARY | 2024-10-03 11:06 | External Medical Summary | Continuity Of Care Document ---
Author Name Unknown Address [address] [address] Organization [facility] () Care Team Providers Care Java Lead Architect Name Role Phone DO Machado Amy Primary Care Provider [phone] Allergies Allergy Reaction Start Date End Date [...] 3 0.1 mL 08/29 Inactiv e 2023 23693 04499 0 1 time Intrad ermal False Tubersol 5 tub. unit/0.1 mL intradermal injection solution [Tuberculin PPD] 0.1mL Intradermal 1 time For PPD 2nd Step Give 2nd Step PPD Day 1 and Read results Day 3 (schedule 7 days after 1st READ) 0.1mL 09/08 Inactiv e 2023 99047 75379 0 1 time Intrad ermal False Humalog [...] order For Diabetes 08/25 Inactiv e 2023 21141 19886 9 4 times a day Subcut aneous False Aspirin 325 mg tablet [generic] 325 By Mouth Twice daily For Anticoagulati on 325 09/25 Active 2023 98878 09946 1 Twice daily By Mouth False Ferrous sulfate 325 mg (65 mg iron) tablet [generic] 325 By Mouth Once daily For anemia 325 2023 Active 2023 96550 51448 5 Once daily By Mouth False Linezolid 600 mg tablet [generic] 600 mg By Mouth Every 12 hours For MRSA INFECTION L BKA 600 mg 08/25 Inactiv e 2023 96871 44787 1 Every 12 hours By Mouth False Cefpodoxime 200 mg tablet [generic] 400 mg By Mouth Twice daily For MRSA INFECTION L BKA 400 mg 08/25 Inactiv e 2023 56692 78773 0 Twice daily By Mouth False Coenzyme Q10 100 mg tablet [generic] 100 mg By Mouth Once daily For SUPP 100 mg 2023 Active 2023 76204 60221 0 Once daily By Mouth False Levothyroxi ne 50 mcg tablet [generic] 50mcg By Mouth Once daily For hypothyroidis m 50mcg 2023 Active 2023 35577 64182 0 Once daily By Mouth False One A Day Men Complete 240 mcg-25 mcg-300 mcg tablet 1 tab By Mouth Once daily For supplement 1 tab 2023 Active 2023 78187 02164 1 Once daily By Mouth False Cholecalcif adalberto (vitamin D3) 50 mcg (2,000 unit) tablet [generic] 1 TAB By Mouth Once daily For SUPP 1 TAB 2023 Active 2023 01291 54953 1 Once daily By Mouth False Cetirizine 10 mg tablet [generic] 1 TAB By Mouth At bedtime For Allergies 1 TAB 2023 Active 2023 80762 76103 0 At bedtime By Mouth False Timolol maleate 0.25 % eye drops [generic] 1 drop Both Eyes Twice daily For glaucoma 1 drop 2023 0000 0000 Active 2023 83533 44551 5 Twice daily Both Eyes False Alendronate 35 mg tablet [generic] 35mg By Mouth Every week For SIADH 35mg 08/31 Inactiv e 2023 44329 76418 5 Every week By Mouth False Lantus Solostar U-100 Insulin 100 unit/mL (3 mL) subcutaneou s pen 18 units Subcutaneous Every morning For DIABETES 18 units 08/25 Inactiv e 2023 50319 69465 0 Every morning Subcut aneous False Lantus Solostar U-100 Insulin 100 unit/mL (3 mL) subcutaneou s pen 18 units Subcutaneous Every morning For DIABETES 18 units 2023 Active 2023 89407 23380 0 Every morning Subcut aneous False Linezolid 600 mg tablet [generic] 600 mg By Mouth Every 12 hours For MRSA INFECTION L BKA 600 mg 08/28 Inactiv e 2023 03827 71971 1 Every 12 hours By Mouth False [...] order For Diabetes 08/31 Inactiv e 2023 20740 57961 9 4 times a day Subcut aneous False Cefpodoxime 200 mg tablet [generic] 400 mg By Mouth Twice daily For MRSA INFECTION L BKA 400 mg 08/28 Inactiv e 2023 72408 76568 0 Twice daily By Mouth False Brimonidine 0.1 % eye drops [generic] 1 drop Both Eyes Twice daily For glaucoma 1 drop 2023 Active 2023 37095 61726 0 Twice daily Both Eyes False Metoprolol succinate ER 50 mg tablet,exte nded release 24 hr [generic] 50 mg By Mouth Once daily HOLD FOR SBP <100, or pulse <60 For HTN 50 mg 2023 Active 2023 69026 48923 1 Once daily By Mouth False Amlodipine 2.5 mg tablet [generic] 2.5 mg By Mouth Once daily For HTN 2.5 mg 2023 Active 2023 77211 93876 5 Once daily By Mouth False Docusate sodium 100 mg capsule [generic] 100mg By Mouth Twice daily as needed For constipation HOLD FOR LOOSE STOOLS 100mg 2023 Active 2023 65703 67572 1 Twice daily as needed By Mouth False Atorvastati n 40 mg tablet [generic] 40mg By Mouth Once daily For HDL 40mg 08/26 Inactiv e 2023 42508 62981 5 Once daily By Mouth False Tylenol 325 mg tablet 2 tabs By Mouth Every 4 hours as needed For Pain DO NOT EXCEED 3000 MG APAP/24 Hours 2 tabs 2023 Active 2023 64869 41446 0 Every 4 hours as needed By Mouth False Tylenol 325 mg tablet 2 tabs By Mouth Every 4 hours as needed For Fever >100 DO NOT EXCEED 3000 MG APAP/24 Hours 2 tabs 2023 Active 2023 32329 21706 0 Every 4 hours as needed By Mouth False Dulcolax (bisacodyl) 10 mg rectal suppository One Suppository per rectum PRN if Milk of Magnisia ineffective. Give on day 5 of no BM 1 sup 2023 Active 2023 13489 80757 1 Daily as needed Rectal False Fleet Enema 19 gram-7 gram/118 mL Administer per rectum PRN one time if dulcolax suppository not effective. Give on day 6 of no BM 1 2023 Active 2023 02098 53406 6 Daily as needed Rectal False Dextrose 50 % in water (D50W) intravenous solution [generic] Dextrose 50% evonne 20-50 ml (slow push) Intravenous if Glucagon not effective after 15 minutes. CALL 911 for ED Evaluation. 50% evonne 2023 Active 2023 70427 41783 9 Intrav enous False Glucagon (HCl) Emergency Kit 1 mg solution for injection Administer Glucagon 1 mg Intramuscular if 15 minutes after GLucose Gel is administered Glucose remains less than 70 1 mg 2023 Active 2023 44523 37038 2 Intram uscula r False Glucose Gel 40 % oral gel [Dextrose] PRN If resident is unable to swallow (with or without symptoms) and Glucose results less than 70 give GLucose 40% Gel 1 tube orally - Recheck Glucose 15 minutes after administratio n. 1 tube 2023 Active 2023 89565 60216 8 By Mouth False Milk of Magnesia 400 mg/5 mL oral suspension [Magnesium hydroxide] PRN 30ml By Mouth Daily as needed for constipation one time daily if no BM, on day 4 of no BM (PRN refer to instructions) For Constipation 30 mL 2023 Active 2023 80194 73215 6 Daily as needed By Mouth False Atorvastati n 40 mg tablet [generic] 08/26 Inactiv e 2023 50680 78777 5 Atorvastati n 40 mg tablet [generic] 40mg By Mouth Once daily For HDL 40mg 2023 Active 2023 63461 07187 5 Once daily By Mouth False Insulin aspart (U-100) 100 unit/mL (3 mL) subcutaneou s pen [generic] 15 units Subcutaneous 1 time For dm 15 units 08/26 Inactiv e 2023 82816 34943 5 1 time Subcut aneous False Humalog KwikPen (U-100) Insulin 100 unit/mL subcutaneou s 15 units Subcutaneous 1 time For dm 15 units 08/27 Inactiv e 2023 47489 48261 9 1 time Subcut aneous False Linezolid 600 mg tablet [generic] 600 mg By Mouth Every 12 hours For MRSA INFECTION L BKA 600 mg 09/06 Inactiv e 2023 99039 32824 1 Every 12 hours By Mouth False Cefpodoxime 200 mg tablet [generic] 400 mg By Mouth Twice daily For MRSA INFECTION L BKA 400 mg 08/31 Inactiv e 2023 68704 96558 0 Twice daily By Mouth False Senna 8.6 mg tablet 8.6 mg By Mouth Once daily For Constipation 8.6 mg 09/07 Inactiv e 2023 44436 52259 1 Once daily By Mouth False Humalog [...] abnormalities . Per Carb 2023 Active 2023 35825 65976 9 4 times a day Subcut aneous False Alendronate 35 mg tablet [generic] 08/31 Inactiv e 2023 56642 46758 5 Alendronate 35 mg tablet [generic] 35mg By Mouth Every week For Osteoporosis 35mg 2023 Active 2023 15815 02182 5 Every week By Mouth False ProSource 10 gram-100 kcal/30 mL oral liquid 30 ml By Mouth Once daily For wound healing 30 ml 2023 Active 2023 69763 11147 2 Once daily By Mouth False Clotrimazol e 1 % topical cream [generic] 1 applicaiton Topical Twice daily For tinea, apply to groin rash after cleansing and throughouly drying. Can discontinue order 3 days after rash resolves. 1 applica stacy 09/08 Inactiv e 2023 19001 02082 0 Twice daily Topica l False MAGIC MIX 1:1:1:1 : ZINC OXIDE EXTERNAL OINTMENT 40%; HYDROCOTISO NE EXTERNAL CREAM 1%; NYSTATIN EXTERNAL CREAM 553661B/GM; SILVADENE CREAM 1% Every shift Apply topically to MASD area on coccyx/buttoc ks each shift and as needed for incontinence care For MASD on coccyx layer 2023 Active 2023 Every shift Topica l False Senna 8.6 mg tablet 8.6 mg By Mouth Once daily For Constipation 8.6 mg 09/07 Inactiv e 2023 19809 07735 1 Once daily By Mouth False Senna 8.6 mg tablet 8.6 mg By Mouth Once daily As Needed For Constipation 8.6 mg 2023 Active 2023 20510 55325 1 Once daily By Mouth False BD AutoShield Duo Pen Needle 30 gauge x 3/16in 1 pen needle Subcutaneous 4 times a day For DM 1 pen needle 2023 Active 2023 51152 89732 5 4 times a day Subcut aneous False Hydrocortis one 1 % topical ointment [generic] 1 application Topical Twice daily For tinea *mix 1:1 with clotrimazole cream and apply to clean/dry groin rash 1 applica peggy 09/19 Active 2023 63475 49526 6 Twice daily Topica l False Clotrimazol e 1 % topical cream [generic] 1 applicaiton Topical Twice daily For tinea, apply to groin rash after cleansing and throughouly drying. MIX WITH HYDROCORTISON E Can discontinue order 3 days after rash resolves. 1 applica stacy 2023 Active 2023 66602 38088 0 Twice daily Topica l False Humalog KwikPen (U-100) Insulin 100 unit/mL subcutaneou s 10/10/ 2024 10/10 /2024 Inactiv e 2023 83811 75912 9 MediHoney HCS 4 1/2in X 4 1/2in bandage Cleanse area with NSS, apply one medihoney hydrocolloid dressing, non adherent dressing, kerlix secure with paper tape daily. For wound stage III 1 2023 Active 2023 18531 48757 1 Once daily Topica l False Problems Code Description Start Date End Date Status D64.9 Anemia, unspecified 08/25/2024 Activ e I25.10 Atherosclerotic hear t disease of [place] coronary artery without angina pectoris 08/25/2024 Active [...] weight Temperature SpO2 Blood Sugar Pulse Respirations 52689 8 67.00 mm[Hg] - Sitting 145.00 mm[Hg] - Sitting 98.50 Forehead Scan 96.00 % 81.00/ min 16.00/min 53168 004 75754 2 67.00 mm[Hg] - Sitting 145.00 mm[Hg] - Sitting 98.50 Tympanic 81.00/ min 16.00/min 95925 004 96089 5 56.00 mm[Hg] - Sitting 142.00 mm[Hg] - Sitting 136.40 NI 100.20 Tympanic 96.00 % 92.00/ min 18.00/min 48433 004 93798 6 56052 004 65332 4 143.00 mg/dL 84184 004 04741 0 97.80 Tympanic 57836 005 54565 7 60.00 mm[Hg] - Sitting 140.00 mm[Hg] - Sitting 98.00 Tympanic 84.00/ min 18.00/min 08702 005 48870 0 63.00 mm[Hg] - Sitting 141.00 mm[Hg] - Sitting 98.20 Tympanic 92.00 % 63.00/ min 16.00/min 62475 005 17330 8 69.00 mm[Hg] - Sitting 106.00 mm[Hg] - Sitting 97.20 Tympanic 06593 005 54646 7 69.00/ min 16.00/min 93115 005 64953 3 69.00 mm[Hg] - Sitting 106.00 mm[Hg] - Sitting 98.20 Tympanic 69.00/ min 16.00/min 72599 005 39740 1 367.00 mg/dL 69577 005 61068 2 97.20 Tympanic 52639 005 33468 4 97.20 Tympanic 62515 005 54389 0 69.00 mm[Hg] - Sitting 106.00 mm[Hg] - Sitting 69.00/ min 45215 005 61981 3 452.00 mg/dL 25239 005 51234 3 452.00 mg/dL 56426 005 58185 5 352.00 mg/dL 46351 005 80206 3 352.00 mg/dL 79655 005 90803 7 98.20 Tympanic 31914 005 91649 3 101.00 mg/dL 46322 005 8 101.00 mg/dL 93459 006 06690 4 66.00 mm[Hg] - Sitting 107.00 mm[Hg] - Sitting 98.00 Tympanic 66.00/ min 18.00/min 17914 006 54410 0 62.00 mm[Hg] - Sitting 162.00 mm[Hg] - Sitting 98.20 Tympanic 96.00 % 60.00/ min 16.00/min 74798 006 21072 4 62.00 mm[Hg] - Sitting 162.00 mm[Hg] - Sitting 98.00 Tympanic 70.00/ min 18.00/min 46678 006 50361 8 62.00 mm[Hg] - Sitting 162.00 mm[Hg] - Sitting 98.20 Tympanic 70.00/ min 18.00/min 67472 006 75830 2 66.00 mm[Hg] - Sitting 132.00 mm[Hg] - Sitting 98.60 Tympanic 74.00/ min 16.00/min 63971 006 97337 5 159.00 mg/dL 64469 006 37397 1 159.00 mg/dL 17182 006 02018 8 98.00 Tympanic 47677 006 91281 2 62.00 mm[Hg] - Sitting 162.00 mm[Hg] - Sitting 70.00/ min 12384 006 00724 7 264.00 mg/dL 81852 006 37344 7 264.00 mg/dL 48563 006 40455 4 196.00 mg/dL 26769 006 82072 3 98.20 Tympanic 49689 006 14331 6 271.00 mg/dL 23288 007 03829 3 97.20 Tympanic 25798 007 44346 2 63.00 mm[Hg] - Sitting 132.00 mm[Hg] - Sitting 98.50 Tympanic 94.00 % 66.00/ min 16.00/min 83840 007 80172 5 188.00 mg/dL 00533 007 51382 2 188.00 mg/dL 08522 007 42195 2 188.00 mg/dL 08157 007 90705 7 97.20 Tympanic 50659 007 41265 6 97.20 Tympanic 28470 007 11752 5 67.00 mm[Hg] - Sitting 152.00 mm[Hg] - Sitting 68.00/ min 38160 007 61977 0 141.00 mg/dL 25580 007 39715 3 141.00 mg/dL 25798 007 20155 1 366.00 mg/dL 72676 007 19334 7 366.00 mg/dL 81714 007 42863 7 98.00 Tympanic 77371 007 28605 6 324.00 mg/dL 01572 007 82907 3 98.00 Tympanic 15849 007 33985 7 324.00 mg/dL 03917 008 39446 0 98.00 Tympanic 99182 008 78826 2 97.90 Tympanic 57087 008 84560 0 98.20 Tympanic 74463 008 11628 0 73.00 mm[Hg] - Sitting 156.00 mm[Hg] - Sitting 98.60 Tympanic 99.00 % 66.00/ min 20.00/min 35302 008 19074 5 137.00 mg/dL 21669 008 17787 7 137.00 mg/dL 90097 008 39446 2 97.90 Tympanic 99803 008 55084 1 137.00 mg/dL 37244 008 22678 8 97.90 Tympanic 96931 008 77704 5 67.00 mm[Hg] - Sitting 124.00 /min 19906 008 78847 6 212.00 mg/dL 90919 008 03199 6 212.00 mg/dL 79793 008 03279 9 317.00 mg/dL 81298 008 43221 4 317.00 mg/dL 12286 008 77906 8 252.00 mg/dL 49899 008 25629 0 98.70 Tympanic 10758 008 60306 7 252.00 mg/dL 73431 008 81700 3 98.70 Tympanic 34295 009 47133 9 98.70 Tympanic 90979 009 09071 3 98.20 Tympanic 32445 009 33931 5 98.40 Tympanic 29941 009 11447 5 57.00 mm[Hg] - Sitting 129.00 mm[Hg] - Sitting 98.30 Tympanic 97.00 % 65.00/ min 18.00/min 62084 009 19599 1 255.00 mg/dL 04947 009 06653 4 255.00 mg/dL 25066 009 89473 5 98.20 Tympanic 99993 009 11442 0 255.00 mg/dL 77722 009 10816 0 98.20 Tympanic 08493 009 38367 4 63.00 mm[Hg] - Lying Down 102.00 mm[Hg] - Lying Down 58.00/ min 58741 009 47485 0 167.00 mg/dL 32092 009 40856 1 167.00 mg/dL 77445 009 11428 2 164.00 mg/dL 02597 009 66586 1 164.00 mg/dL 92853 009 82685 5 208.00 mg/dL 87128 010 18925 3 98.40 Tympanic 90790 010 51710 5 98.40 Tympanic 45628 010 54856 7 66 NI 98065 010 98824 4 60.00 mm[Hg] - Sitting 143.00 mm[Hg] - Sitting 98.90 Tympanic 98.00 % 67.00/ min 18.00/min 61932 010 74573 2 214.00 mg/dL 35962 010 81045 0 214.00 mg/dL 19880 010 57403 7 214.00 mg/dL 72966 010 81887 6 64.00 mm[Hg] - Sitting 110.00 mm[Hg] - Sitting 72.00/ min 98670 010 26929 7 98.40 Tympanic 62652 010 68051 1 212.00 mg/dL 27207 010 79786 2 212.00 mg/dL 06190 010 04777 1 115.00 mg/dL 67305 010 93305 0 115.00 mg/dL 48480 010 40689 4 98.50 Tympanic 51753 010 29616 4 150.00 mg/dL 66428 010 98778 0 150.00 mg/dL 58201 011 32311 9 98.60 Tympanic 31653 011 35455 1 67.00 mm[Hg] - Sitting 144.00 mm[Hg] - Sitting 98.20 Tympanic 98.00 % 61.00/ min 18.00/min 05292 011 46617 7 290.00 mg/dL 90358 011 75362 2 290.00 mg/dL 56080 011 99857 2 290.00 mg/dL 96519 011 43845 7 54.00 mm[Hg] - Sitting 136.00 mm[Hg] - Sitting 101.00 /min 00318 011 81818 7 98.60 Tympanic 35128 011 63493 5 240.00 mg/dL 30855 011 04978 1 240.00 mg/dL 91862 011 61439 1 156.00 mg/dL 81253 011 26455 9 156.00 mg/dL 32220 011 74762 0 97.80 Tympanic 20009 011 96223 8 343.00 mg/dL 84417 012 10262 9 97.90 Tympanic 15810 012 89803 2 466.00 mg/dL 67084 012 88688 1 466.00 mg/dL 97441 012 15883 3 466.00 mg/dL 26368 012 54569 8 97.90 Tympanic 05037 012 88069 8 56.00 mm[Hg] - Sitting 96.00 mm[Hg] - Sitting 61.00/ min 39036 012 95007 7 350.00 mg/dL 61577 012 89918 5 350.00 mg/dL 04577 012 15618 6 111.00 mg/dL 68286 012 12996 0 111.00 mg/dL 73735 012 15275 5 98.40 Tympanic 68973 012 98639 6 114.00 mg/dL 27972 013 30010 4 74.00 mm[Hg] - Sitting 112.00 mm[Hg] - Sitting 98.40 Tympanic 70.00/ min 18.00/min 61835 013 79594 8 244.00 mg/dL 66956 013 19990 7 244.00 mg/dL 30218 013 20996 1 244.00 mg/dL 67006 013 24678 1 98.20 Tympanic 20817 013 92377 7 72.00 mm[Hg] - Sitting 119.00 mm[Hg] - Sitting 76.00/ min 63183 013 94299 7 253.00 mg/dL 74075 013 05704 4 253.00 mg/dL 49174 013 31771 9 156.00 mg/dL 20593 013 31424 5 156.00 mg/dL 96701 013 90192 4 97.90 Tympanic 03068 013 93421 5 189.00 mg/dL 31875 014 69962 9 98.10 Tympanic 39739 014 22097 0 61.00 mm[Hg] - Sitting 139.00 mm[Hg] - Sitting 98.20 Forehead Scan 99.00 % 66.00/ min 18.00/min 91569 014 17545 3 169.00 mg/dL 43957 014 10373 3 98.10 Tympanic 43628 014 54066 3 75.00 mm[Hg] - Sitting 121.00 mm[Hg] - Sitting 71.00/ min 87364 014 95332 9 221.00 mg/dL 61320 014 09534 9 62.00 mg/dL 98254 014 31623 5 62.00 mg/dL 49304 014 34279 8 156.00 mg/dL 86592 014 57596 6 98.10 Tympanic 38562 014 86189 7 156.00 mg/dL 68853 015 11717 4 95658 015 44533 7 62.00 mm[Hg] - Sitting 142.00 mm[Hg] - Sitting 98.20 Tympanic 99.00 % 67.00/ min 18.00/min 70525 015 12910 9 120.00 mg/dL 02595 015 82388 7 98.00 Tympanic 70064 015 37183 2 82.00 mm[Hg] - Sitting 119.00 /min 29040 015 74066 9 110.00 mg/dL 61684 015 26922 6 104.00 mg/dL 41050 015 53818 0 100.00 mg/dL 62078 015 77371 2 98.10 Tympanic 53237 015 02840 6 100.00 mg/dL 80157 016 49184 2 67.00 mm[Hg] - Sitting 147.00 mm[Hg] - Sitting 99.00 Tympanic 99.00 % 78.00/ min 20.00/min 88402 016 09665 5 158.00 mg/dL 44095 016 78833 1 158.00 mg/dL 29365 016 38685 2 158.00 mg/dL 40016 016 63500 0 66.00 mm[Hg] - Sitting 121.00 mm[Hg] - Sitting 74.00/ min 56637 016 49858 1 97.00 mg/dL 96132 016 89830 5 97.00 mg/dL 66483 016 24955 4 78.00 mg/dL 55805 016 25992 6 78.00 mg/dL 90770 016 04615 5 248.00 mg/dL 76252 016 84310 8 248.00 mg/dL 60806 017 85361 3 54.00 mm[Hg] - Sitting 142.00 mm[Hg] - Sitting 98.30 Tympanic 99.00 % 76.00/ min 18.00/min 63198 017 08240 4 267.00 mg/dL 61126 017 39626 6 73.00 mm[Hg] - Sitting 109.00 mm[Hg] - Sitting 70.00/ min 90431 017 23521 1 184.00 mg/dL 06957 017 60269 5 184.00 mg/dL 90478 017 06960 9 248.00 mg/dL 14428 017 79334 8 299.00 mg/dL 32761 017 71291 3 299.00 mg/dL 89552 018 31668 7 50.00 mm[Hg] - Sitting 125.00 mm[Hg] - Sitting 98.30 Tympanic 98.00 % 76.00/ min 16.00/min 22919 018 38633 3 168.00 mg/dL 59135 018 04423 0 75.00 mm[Hg] - Sitting 121.00 mm[Hg] - Sitting 70.00/ min 24826 018 93783 7 264.00 mg/dL 08360 018 99918 6 132.00 mg/dL 47112 018 00059 6 154.00 mg/dL 78102 018 44712 6 154.00 mg/dL 38452 019 45326 4 63.00 mm[Hg] - Sitting 147.00 mm[Hg] - Sitting 98.50 Tympanic 99.00 % 69.00/ min 18.00/min 42571 019 95951 9 159.00 mg/dL 12544 019 87541 8 73.00 mm[Hg] - Sitting 110.00 mm[Hg] - Sitting 72.00/ min 50247 019 48038 4 191.00 mg/dL 11400 019 51180 8 70.00 mg/dL 13849 019 22653 4 70.00 mg/dL 21196 019 68468 6 198.00 mg/dL 56792 019 78001 0 198.00 mg/dL 60375 020 53093 2 59.00 mm[Hg] - Sitting 131.00 mm[Hg] - Sitting 98.90 Tympanic 99.00 % 69.00/ min 18.00/min 89939 020 07816 7 299.00 mg/dL 21135 020 61691 0 62.00 mm[Hg] - Sitting 132.00 mm[Hg] - Sitting 68.00/ min 21992 020 94904 3 299.00 mg/dL 21365 020 43986 3 299.00 mg/dL 13579 020 94940 9 220.00 mg/dL 09846 020 99947 1 220.00 mg/dL 77779 020 88472 1 270.00 mg/dL 54313 020 31883 4 270.00 mg/dL 07300 020 84639 9 143.00 mg/dL 90686 020 23148 4 143.00 mg/dL 71937 021 73956 0 59.00 mm[Hg] - Sitting 121.00 mm[Hg] - Sitting 98.40 Forehead Scan 98.00 % 70.00/ min 16.00/min 42934 021 23932 0 140.00 mg/dL 47269 021 88353 0 67.00 mm[Hg] - Sitting 130.00 mm[Hg] - Sitting 68.00/ min 32939 021 13645 8 140.00 mg/dL 11660 021 08585 6 140.00 mg/dL 92838 021 83675 8 156.00 mg/dL 69276 021 95294 1 156.00 mg/dL 64832 021 92495 5 146.00 mg/dL 56243 021 65485 4 146.00 mg/dL 78768 021 92151 5 183.00 mg/dL 68098 021 14911 2 183.00 mg/dL 63017 022 95982 3 38545 022 94407 6 270.00 mg/dL 61434 022 76300 5 68.00 mm[Hg] - Sitting 122.00 mm[Hg] - Sitting 67.00/ min 29535 022 73659 9 270.00 mg/dL 62924 022 45039 4 270.00 mg/dL 22375 022 49478 4 207.00 mg/dL 74139 022 47562 8 207.00 mg/dL 27094 022 55925 9 217.00 mg/dL 24763 022 11430 2 217.00 mg/dL Immunizations Vaccine Date Status COVID-19 09/20/2023 Completed Other 10/08/2023 Completed Shingles 05/27/2011 Completed Tetanus 04/13/2022 Completed TDaP 04/13/2022 Completed Shingles 2 10/05/2018 Completed
--- OUTSIDE RECORDS SUMMARY | 2024-10-03 11:06 | External Medical Summary | Continuity Of Care Document ---
Author Name Unknown Address [address] [address] Organization [facility] () Care Team Providers Care [employer] Name Role Phone DO Machado Amy Primary Care Provider [phone] Allergies Allergy Reaction Start Date End Date [...] 3 0.1 mL 08/29 Inactiv e 2023 85959 61970 0 1 time Intrad ermal False Tubersol 5 tub. unit/0.1 mL intradermal injection solution [Tuberculin PPD] 0.1mL Intradermal 1 time For PPD 2nd Step Give 2nd Step PPD Day 1 and Read results Day 3 (schedule 7 days after 1st READ) 0.1mL 09/08 Inactiv e 2023 51264 17971 0 1 time Intrad ermal False Humalog [...] order For Diabetes 08/25 Inactiv e 2023 77052 22885 9 4 times a day Subcut aneous False Aspirin 325 mg tablet [generic] 325 By Mouth Twice daily For Anticoagulati on 325 09/25 Active 2023 03228 78690 1 Twice daily By Mouth False Ferrous sulfate 325 mg (65 mg iron) tablet [generic] 325 By Mouth Once daily For anemia 325 2023 Active 2023 93556 48404 5 Once daily By Mouth False Linezolid 600 mg tablet [generic] 600 mg By Mouth Every 12 hours For MRSA INFECTION L BKA 600 mg 08/25 Inactiv e 2023 67303 83056 1 Every 12 hours By Mouth False Cefpodoxime 200 mg tablet [generic] 400 mg By Mouth Twice daily For MRSA INFECTION L BKA 400 mg 08/25 Inactiv e 2023 38731 62855 0 Twice daily By Mouth False Coenzyme Q10 100 mg tablet [generic] 100 mg By Mouth Once daily For SUPP 100 mg 2023 Active 2023 85048 27242 0 Once daily By Mouth False Levothyroxi ne 50 mcg tablet [generic] 50mcg By Mouth Once daily For hypothyroidis m 50mcg 2023 Active 2023 98908 77554 0 Once daily By Mouth False One A Day Men Complete 240 mcg-25 mcg-300 mcg tablet 1 tab By Mouth Once daily For supplement 1 tab 2023 Active 2023 39435 15238 1 Once daily By Mouth False Cholecalcif adalberto (vitamin D3) 50 mcg (2,000 unit) tablet [generic] 1 TAB By Mouth Once daily For SUPP 1 TAB 2023 Active 2023 18266 31766 1 Once daily By Mouth False Cetirizine 10 mg tablet [generic] 1 TAB By Mouth At bedtime For Allergies 1 TAB 2023 Active 2023 96409 72219 0 At bedtime By Mouth False Timolol maleate 0.25 % eye drops [generic] 1 drop Both Eyes Twice daily For glaucoma 1 drop 2023 0000 0000 Active 2023 73189 90356 5 Twice daily Both Eyes False Alendronate 35 mg tablet [generic] 35mg By Mouth Every week For SIADH 35mg 08/31 Inactiv e 2023 59153 37764 5 Every week By Mouth False Lantus Solostar U-100 Insulin 100 unit/mL (3 mL) subcutaneou s pen 18 units Subcutaneous Every morning For DIABETES 18 units 08/25 Inactiv e 2023 51696 74205 0 Every morning Subcut aneous False Lantus Solostar U-100 Insulin 100 unit/mL (3 mL) subcutaneou s pen 18 units Subcutaneous Every morning For DIABETES 18 units 2023 Active 2023 30080 38901 0 Every morning Subcut aneous False Linezolid 600 mg tablet [generic] 600 mg By Mouth Every 12 hours For MRSA INFECTION L BKA 600 mg 08/28 Inactiv e 2023 26384 70744 1 Every 12 hours By Mouth False [...] order For Diabetes 08/31 Inactiv e 2023 76201 69036 9 4 times a day Subcut aneous False Cefpodoxime 200 mg tablet [generic] 400 mg By Mouth Twice daily For MRSA INFECTION L BKA 400 mg 08/28 Inactiv e 2023 51579 80223 0 Twice daily By Mouth False Brimonidine 0.1 % eye drops [generic] 1 drop Both Eyes Twice daily For glaucoma 1 drop 2023 Active 2023 37080 09354 0 Twice daily Both Eyes False Metoprolol succinate ER 50 mg tablet,exte nded release 24 hr [generic] 50 mg By Mouth Once daily HOLD FOR SBP <100, or pulse <60 For HTN 50 mg 2023 Active 2023 05117 22256 1 Once daily By Mouth False Amlodipine 2.5 mg tablet [generic] 2.5 mg By Mouth Once daily For HTN 2.5 mg 2023 Active 2023 78574 93854 5 Once daily By Mouth False Docusate sodium 100 mg capsule [generic] 100mg By Mouth Twice daily as needed For constipation HOLD FOR LOOSE STOOLS 100mg 2023 Active 2023 10973 50388 1 Twice daily as needed By Mouth False Atorvastati n 40 mg tablet [generic] 40mg By Mouth Once daily For HDL 40mg 08/26 Inactiv e 2023 30853 04723 5 Once daily By Mouth False Tylenol 325 mg tablet 2 tabs By Mouth Every 4 hours as needed For Pain DO NOT EXCEED 3000 MG APAP/24 Hours 2 tabs 2023 Active 2023 56197 16266 0 Every 4 hours as needed By Mouth False Tylenol 325 mg tablet 2 tabs By Mouth Every 4 hours as needed For Fever >100 DO NOT EXCEED 3000 MG APAP/24 Hours 2 tabs 2023 Active 2023 11159 63010 0 Every 4 hours as needed By Mouth False Dulcolax (bisacodyl) 10 mg rectal suppository One Suppository per rectum PRN if Milk of Magnisia ineffective. Give on day 5 of no BM 1 sup 2023 Active 2023 80664 39701 1 Daily as needed Rectal False Fleet Enema 19 gram-7 gram/118 mL Administer per rectum PRN one time if dulcolax suppository not effective. Give on day 6 of no BM 1 2023 Active 2023 03182 37491 6 Daily as needed Rectal False Dextrose 50 % in water (D50W) intravenous solution [generic] Dextrose 50% evonne 20-50 ml (slow push) Intravenous if Glucagon not effective after 15 minutes. CALL 911 for ED Evaluation. 50% evonne 2023 Active 2023 58191 61048 9 Intrav enous False Glucagon (HCl) Emergency Kit 1 mg solution for injection Administer Glucagon 1 mg Intramuscular if 15 minutes after GLucose Gel is administered Glucose remains less than 70 1 mg 2023 Active 2023 13981 64456 2 Intram uscula r False Glucose Gel 40 % oral gel [Dextrose] PRN If resident is unable to swallow (with or without symptoms) and Glucose results less than 70 give GLucose 40% Gel 1 tube orally - Recheck Glucose 15 minutes after administratio n. 1 tube 2023 Active 2023 72451 32201 8 By Mouth False Milk of Magnesia 400 mg/5 mL oral suspension [Magnesium hydroxide] PRN 30ml By Mouth Daily as needed for constipation one time daily if no BM, on day 4 of no BM (PRN refer to instructions) For Constipation 30 mL 2023 Active 2023 59058 07306 6 Daily as needed By Mouth False Atorvastati n 40 mg tablet [generic] 08/26 Inactiv e 2023 49605 26668 5 Atorvastati n 40 mg tablet [generic] 40mg By Mouth Once daily For HDL 40mg 2023 Active 2023 66450 04952 5 Once daily By Mouth False Insulin aspart (U-100) 100 unit/mL (3 mL) subcutaneou s pen [generic] 15 units Subcutaneous 1 time For dm 15 units 08/26 Inactiv e 2023 25428 83418 5 1 time Subcut aneous False Humalog KwikPen (U-100) Insulin 100 unit/mL subcutaneou s 15 units Subcutaneous 1 time For dm 15 units 08/27 Inactiv e 2023 23158 05771 9 1 time Subcut aneous False Linezolid 600 mg tablet [generic] 600 mg By Mouth Every 12 hours For MRSA INFECTION L BKA 600 mg 09/06 Inactiv e 2023 21796 06732 1 Every 12 hours By Mouth False Cefpodoxime 200 mg tablet [generic] 400 mg By Mouth Twice daily For MRSA INFECTION L BKA 400 mg 08/31 Inactiv e 2023 48762 76163 0 Twice daily By Mouth False Senna 8.6 mg tablet 8.6 mg By Mouth Once daily For Constipation 8.6 mg 09/07 Inactiv e 2023 73536 31266 1 Once daily By Mouth False Humalog [...] abnormalities . Per Carb 2023 Active 2023 24126 47819 9 4 times a day Subcut aneous False Alendronate 35 mg tablet [generic] 08/31 Inactiv e 2023 01113 78202 5 Alendronate 35 mg tablet [generic] 35mg By Mouth Every week For Osteoporosis 35mg 2023 Active 2023 73503 92450 5 Every week By Mouth False ProSource 10 gram-100 kcal/30 mL oral liquid 30 ml By Mouth Once daily For wound healing 30 ml 2023 Active 2023 97694 13715 2 Once daily By Mouth False Clotrimazol e 1 % topical cream [generic] 1 applicaiton Topical Twice daily For tinea, apply to groin rash after cleansing and throughouly drying. Can discontinue order 3 days after rash resolves. 1 applica stacy 09/08 Inactiv e 2023 66782 10797 0 Twice daily Topica l False MAGIC MIX 1:1:1:1 : ZINC OXIDE EXTERNAL OINTMENT 40%; HYDROCOTISO NE EXTERNAL CREAM 1%; NYSTATIN EXTERNAL CREAM 700870I/GM; SILVADENE CREAM 1% Every shift Apply topically to MASD area on coccyx/buttoc ks each shift and as needed for incontinence care For MASD on coccyx layer 2023 Active 2023 Every shift Topica l False Senna 8.6 mg tablet 8.6 mg By Mouth Once daily For Constipation 8.6 mg 09/07 Inactiv e 2023 71722 64787 1 Once daily By Mouth False Senna 8.6 mg tablet 8.6 mg By Mouth Once daily As Needed For Constipation 8.6 mg 2023 Active 2023 27554 94042 1 Once daily By Mouth False BD AutoShield Duo Pen Needle 30 gauge x 3/16in 1 pen needle Subcutaneous 4 times a day For DM 1 pen needle 2023 Active 2023 48334 71780 5 4 times a day Subcut aneous False Hydrocortis one 1 % topical ointment [generic] 1 application Topical Twice daily For tinea *mix 1:1 with clotrimazole cream and apply to clean/dry groin rash 1 applica peggy 09/19 Active 2023 28867 99061 6 Twice daily Topica l False Clotrimazol e 1 % topical cream [generic] 1 applicaiton Topical Twice daily For tinea, apply to groin rash after cleansing and throughouly drying. MIX WITH HYDROCORTISON E Can discontinue order 3 days after rash resolves. 1 applica stacy 2023 Active 2023 71572 35269 0 Twice daily Topica l False Humalog KwikPen (U-100) Insulin 100 unit/mL subcutaneou s 10/10/ 2024 10/10 /2024 Inactiv e 2023 06121 90515 9 MediHoney HCS 4 1/2in X 4 1/2in bandage Cleanse area with NSS, apply one medihoney hydrocolloid dressing, non adherent dressing, kerlix secure with paper tape daily. For wound stage III 1 2023 Active 2023 72922 91335 1 Once daily Topica l False Problems Code Description Start Date End Date Status D64.9 Anemia, unspecified 08/25/2024 Activ e I25.10 Atherosclerotic hear t disease of [place] coronary artery without angina pectoris 08/25/2024 Active [...] weight Temperature SpO2 Blood Sugar Pulse Respirations 28033 8 67.00 mm[Hg] - Sitting 145.00 mm[Hg] - Sitting 98.50 Forehead Scan 96.00 % 81.00/ min 16.00/min 38331 004 34741 2 67.00 mm[Hg] - Sitting 145.00 mm[Hg] - Sitting 98.50 Tympanic 81.00/ min 16.00/min 29755 004 82969 5 56.00 mm[Hg] - Sitting 142.00 mm[Hg] - Sitting 136.40 NI 100.20 Tympanic 96.00 % 92.00/ min 18.00/min 73491 004 75906 6 70759 004 53934 4 143.00 mg/dL 13082 004 70958 0 97.80 Tympanic 11623 005 72367 7 60.00 mm[Hg] - Sitting 140.00 mm[Hg] - Sitting 98.00 Tympanic 84.00/ min 18.00/min 43189 005 62924 0 63.00 mm[Hg] - Sitting 141.00 mm[Hg] - Sitting 98.20 Tympanic 92.00 % 63.00/ min 16.00/min 79773 005 93218 8 69.00 mm[Hg] - Sitting 106.00 mm[Hg] - Sitting 97.20 Tympanic 37920 005 22139 7 69.00/ min 16.00/min 70185 005 41929 3 69.00 mm[Hg] - Sitting 106.00 mm[Hg] - Sitting 98.20 Tympanic 69.00/ min 16.00/min 04975 005 22624 1 367.00 mg/dL 20577 005 29347 2 97.20 Tympanic 62694 005 45370 4 97.20 Tympanic 49491 005 21980 0 69.00 mm[Hg] - Sitting 106.00 mm[Hg] - Sitting 69.00/ min 50008 005 64234 3 452.00 mg/dL 22453 005 98103 3 452.00 mg/dL 21278 005 90527 5 352.00 mg/dL 64384 005 57077 3 352.00 mg/dL 28431 005 18340 7 98.20 Tympanic 29669 005 86799 3 101.00 mg/dL 89189 005 03033 8 101.00 mg/dL 77367 006 15633 4 66.00 mm[Hg] - Sitting 107.00 mm[Hg] - Sitting 98.00 Tympanic 66.00/ min 18.00/min 51589 006 06471 0 62.00 mm[Hg] - Sitting 162.00 mm[Hg] - Sitting 98.20 Tympanic 96.00 % 60.00/ min 16.00/min 34204 006 85530 4 62.00 mm[Hg] - Sitting 162.00 mm[Hg] - Sitting 98.00 Tympanic 70.00/ min 18.00/min 26143 006 19421 8 62.00 mm[Hg] - Sitting 162.00 mm[Hg] - Sitting 98.20 Tympanic 70.00/ min 18.00/min 70628 006 04208 2 66.00 mm[Hg] - Sitting 132.00 mm[Hg] - Sitting 98.60 Tympanic 74.00/ min 16.00/min 63300 006 91779 5 159.00 mg/dL 88338 006 89905 1 159.00 mg/dL 26224 006 76743 8 98.00 Tympanic 40351 006 65691 2 62.00 mm[Hg] - Sitting 162.00 mm[Hg] - Sitting 70.00/ min 14571 006 06999 7 264.00 mg/dL 77410 006 71001 7 264.00 mg/dL 32855 006 96817 4 196.00 mg/dL Immunizations Vaccine Date Status COVID-19 09/20/2023 Completed Other 10/08/2023 Completed Shingles 05/27/2011 Completed Tetanus 04/13/2022 Completed TDaP 04/13/2022 Completed Shingles 2 10/05/2018 Completed
--- OUTSIDE RECORDS SUMMARY | 2024-10-03 11:07 | External Medical Summary | Continuity Of Care Document ---
Author Name Unknown Address [address] [address] Organization [facility] () Care Team Providers Care Shellfish Checker Name Role Phone DO Machado Amy Primary Care Provider [phone] Allergies Allergy Reaction Start Date End Date [...] 3 0.1 mL 08/29 Inactiv e 2023 54049 26544 0 1 time Intrad ermal False Tubersol 5 tub. unit/0.1 mL intradermal injection solution [Tuberculin PPD] 0.1mL Intradermal 1 time For PPD 2nd Step Give 2nd Step PPD Day 1 and Read results Day 3 (schedule 7 days after 1st READ) 0.1mL 09/08 Inactiv e 2023 71623 84109 0 1 time Intrad ermal False Humalog [...] order For Diabetes 08/25 Inactiv e 2023 54381 99716 9 4 times a day Subcut aneous False Aspirin 325 mg tablet [generic] 325 By Mouth Twice daily For Anticoagulati on 325 09/25 Active 2023 82827 48582 1 Twice daily By Mouth False Ferrous sulfate 325 mg (65 mg iron) tablet [generic] 325 By Mouth Once daily For anemia 325 2023 Active 2023 47678 06895 5 Once daily By Mouth False Linezolid 600 mg tablet [generic] 600 mg By Mouth Every 12 hours For MRSA INFECTION L BKA 600 mg 08/25 Inactiv e 2023 61837 40833 1 Every 12 hours By Mouth False Cefpodoxime 200 mg tablet [generic] 400 mg By Mouth Twice daily For MRSA INFECTION L BKA 400 mg 08/25 Inactiv e 2023 38937 28797 0 Twice daily By Mouth False Coenzyme Q10 100 mg tablet [generic] 100 mg By Mouth Once daily For SUPP 100 mg 2023 Active 2023 73594 73539 0 Once daily By Mouth False Levothyroxi ne 50 mcg tablet [generic] 50mcg By Mouth Once daily For hypothyroidis m 50mcg 2023 Active 2023 60771 00641 0 Once daily By Mouth False One A Day Men Complete 240 mcg-25 mcg-300 mcg tablet 1 tab By Mouth Once daily For supplement 1 tab 2023 Active 2023 48030 46061 1 Once daily By Mouth False Cholecalcif adalberto (vitamin D3) 50 mcg (2,000 unit) tablet [generic] 1 TAB By Mouth Once daily For SUPP 1 TAB 2023 Active 2023 61375 92086 1 Once daily By Mouth False Cetirizine 10 mg tablet [generic] 1 TAB By Mouth At bedtime For Allergies 1 TAB 2023 Active 2023 22866 93401 0 At bedtime By Mouth False Timolol maleate 0.25 % eye drops [generic] 1 drop Both Eyes Twice daily For glaucoma 1 drop 2023 0000 0000 Active 2023 81860 10237 5 Twice daily Both Eyes False Alendronate 35 mg tablet [generic] 35mg By Mouth Every week For SIADH 35mg 08/31 Inactiv e 2023 37874 03561 5 Every week By Mouth False Lantus Solostar U-100 Insulin 100 unit/mL (3 mL) subcutaneou s pen 18 units Subcutaneous Every morning For DIABETES 18 units 08/25 Inactiv e 2023 67373 70052 0 Every morning Subcut aneous False Lantus Solostar U-100 Insulin 100 unit/mL (3 mL) subcutaneou s pen 18 units Subcutaneous Every morning For DIABETES 18 units 2023 Active 2023 53287 17737 0 Every morning Subcut aneous False Linezolid 600 mg tablet [generic] 600 mg By Mouth Every 12 hours For MRSA INFECTION L BKA 600 mg 08/28 Inactiv e 2023 17351 07850 1 Every 12 hours By Mouth False [...] order For Diabetes 08/31 Inactiv e 2023 73466 41772 9 4 times a day Subcut aneous False Cefpodoxime 200 mg tablet [generic] 400 mg By Mouth Twice daily For MRSA INFECTION L BKA 400 mg 08/28 Inactiv e 2023 94535 62836 0 Twice daily By Mouth False Brimonidine 0.1 % eye drops [generic] 1 drop Both Eyes Twice daily For glaucoma 1 drop 2023 Active 2023 57370 84863 0 Twice daily Both Eyes False Metoprolol succinate ER 50 mg tablet,exte nded release 24 hr [generic] 50 mg By Mouth Once daily HOLD FOR SBP <100, or pulse <60 For HTN 50 mg 2023 Active 2023 75105 09865 1 Once daily By Mouth False Amlodipine 2.5 mg tablet [generic] 2.5 mg By Mouth Once daily For HTN 2.5 mg 2023 Active 2023 20336 61642 5 Once daily By Mouth False Docusate sodium 100 mg capsule [generic] 100mg By Mouth Twice daily as needed For constipation HOLD FOR LOOSE STOOLS 100mg 2023 Active 2023 31916 71188 1 Twice daily as needed By Mouth False Atorvastati n 40 mg tablet [generic] 40mg By Mouth Once daily For HDL 40mg 08/26 Inactiv e 2023 72790 28239 5 Once daily By Mouth False Tylenol 325 mg tablet 2 tabs By Mouth Every 4 hours as needed For Pain DO NOT EXCEED 3000 MG APAP/24 Hours 2 tabs 2023 Active 2023 83411 67889 0 Every 4 hours as needed By Mouth False Tylenol 325 mg tablet 2 tabs By Mouth Every 4 hours as needed For Fever >100 DO NOT EXCEED 3000 MG APAP/24 Hours 2 tabs 2023 Active 2023 94805 68549 0 Every 4 hours as needed By Mouth False Dulcolax (bisacodyl) 10 mg rectal suppository One Suppository per rectum PRN if Milk of Magnisia ineffective. Give on day 5 of no BM 1 sup 2023 Active 2023 34362 48121 1 Daily as needed Rectal False Fleet Enema 19 gram-7 gram/118 mL Administer per rectum PRN one time if dulcolax suppository not effective. Give on day 6 of no BM 1 2023 Active 2023 32606 01787 6 Daily as needed Rectal False Dextrose 50 % in water (D50W) intravenous solution [generic] Dextrose 50% evonne 20-50 ml (slow push) Intravenous if Glucagon not effective after 15 minutes. CALL 911 for ED Evaluation. 50% evonne 2023 Active 2023 82814 32180 9 Intrav enous False Glucagon (HCl) Emergency Kit 1 mg solution for injection Administer Glucagon 1 mg Intramuscular if 15 minutes after GLucose Gel is administered Glucose remains less than 70 1 mg 2023 Active 2023 05409 62893 2 Intram uscula r False Glucose Gel 40 % oral gel [Dextrose] PRN If resident is unable to swallow (with or without symptoms) and Glucose results less than 70 give GLucose 40% Gel 1 tube orally - Recheck Glucose 15 minutes after administratio n. 1 tube 2023 Active 2023 92557 73855 8 By Mouth False Milk of Magnesia 400 mg/5 mL oral suspension [Magnesium hydroxide] PRN 30ml By Mouth Daily as needed for constipation one time daily if no BM, on day 4 of no BM (PRN refer to instructions) For Constipation 30 mL 2023 Active 2023 35282 53396 6 Daily as needed By Mouth False Atorvastati n 40 mg tablet [generic] 08/26 Inactiv e 2023 58333 86614 5 Atorvastati n 40 mg tablet [generic] 40mg By Mouth Once daily For HDL 40mg 2023 Active 2023 51654 21468 5 Once daily By Mouth False Insulin aspart (U-100) 100 unit/mL (3 mL) subcutaneou s pen [generic] 15 units Subcutaneous 1 time For dm 15 units 08/26 Inactiv e 2023 74878 07814 5 1 time Subcut aneous False Humalog KwikPen (U-100) Insulin 100 unit/mL subcutaneou s 15 units Subcutaneous 1 time For dm 15 units 08/27 Inactiv e 2023 02809 91147 9 1 time Subcut aneous False Linezolid 600 mg tablet [generic] 600 mg By Mouth Every 12 hours For MRSA INFECTION L BKA 600 mg 09/06 Inactiv e 2023 86545 76058 1 Every 12 hours By Mouth False Cefpodoxime 200 mg tablet [generic] 400 mg By Mouth Twice daily For MRSA INFECTION L BKA 400 mg 08/31 Inactiv e 2023 00883 54402 0 Twice daily By Mouth False Senna 8.6 mg tablet 8.6 mg By Mouth Once daily For Constipation 8.6 mg 09/07 Inactiv e 2023 96813 28001 1 Once daily By Mouth False Humalog [...] abnormalities . Per Carb 2023 Active 2023 71168 71931 9 4 times a day Subcut aneous False Alendronate 35 mg tablet [generic] 08/31 Inactiv e 2023 51515 31633 5 Alendronate 35 mg tablet [generic] 35mg By Mouth Every week For Osteoporosis 35mg 2023 Active 2023 77299 62908 5 Every week By Mouth False ProSource 10 gram-100 kcal/30 mL oral liquid 30 ml By Mouth Once daily For wound healing 30 ml 2023 Active 2023 61806 52430 2 Once daily By Mouth False Clotrimazol e 1 % topical cream [generic] 1 applicaiton Topical Twice daily For tinea, apply to groin rash after cleansing and throughouly drying. Can discontinue order 3 days after rash resolves. 1 applica stacy 09/08 Inactiv e 2023 79197 22422 0 Twice daily Topica l False MAGIC MIX 1:1:1:1 : ZINC OXIDE EXTERNAL OINTMENT 40%; HYDROCOTISO NE EXTERNAL CREAM 1%; NYSTATIN EXTERNAL CREAM 408646B/GM; SILVADENE CREAM 1% Every shift Apply topically to MASD area on coccyx/buttoc ks each shift and as needed for incontinence care For MASD on coccyx layer 2023 Active 2023 Every shift Topica l False Problems Code Description Start Date End Date Status D64.9 Anemia, unspecified 08/25/2024 Activ e I25.10 Atherosclerotic hear t disease of [place] coronary artery without angina pectoris 08/25/2024 Active [...] weight Temperature SpO2 Blood Sugar Pulse Respirations 99088 8 67.00 mm[Hg] - Sitting 145.00 mm[Hg] - Sitting 98.50 Forehead Scan 96.00 % 81.00/ min 16.00/min 99930 004 93073 2 67.00 mm[Hg] - Sitting 145.00 mm[Hg] - Sitting 98.50 Tympanic 81.00/ min 16.00/min 13604 004 92199 5 56.00 mm[Hg] - Sitting 142.00 mm[Hg] - Sitting 136.40 NI 100.20 Tympanic 96.00 % 92.00/ min 18.00/min 75559 004 92357 6 37993 004 08274 4 143.00 mg/dL 004 66969 0 97.80 Tympanic 99883 005 40520 7 60.00 mm[Hg] - Sitting 140.00 mm[Hg] - Sitting 98.00 Tympanic 84.00/ min 18.00/min 81563 005 80097 0 63.00 mm[Hg] - Sitting 141.00 mm[Hg] - Sitting 98.20 Tympanic 92.00 % 63.00/ min 16.00/min 71727 005 58506 8 69.00 mm[Hg] - Sitting 106.00 mm[Hg] - Sitting 97.20 Tympanic 21043 005 38863 7 69.00/ min 16.00/min 58868 005 49398 3 69.00 mm[Hg] - Sitting 106.00 mm[Hg] - Sitting 98.20 Tympanic 69.00/ min 16.00/min 76196 005 20903 1 367.00 mg/dL 39390 005 76913 2 97.20 Tympanic 33810 005 03425 4 97.20 Tympanic 81386 005 06081 0 69.00 mm[Hg] - Sitting 106.00 mm[Hg] - Sitting 69.00/ min 38467 005 26797 3 452.00 mg/dL 96600 005 92696 3 452.00 mg/dL 07677 005 27466 5 352.00 mg/dL 09029 005 65403 3 352.00 mg/dL 57382 005 21995 7 98.20 Tympanic 99542 005 49991 3 101.00 mg/dL 36588 005 04143 8 101.00 mg/dL 05673 006 83384 4 66.00 mm[Hg] - Sitting 107.00 mm[Hg] - Sitting 98.00 Tympanic 66.00/ min 18.00/min 90403 006 27321 0 62.00 mm[Hg] - Sitting 162.00 mm[Hg] - Sitting 98.20 Tympanic 96.00 % 60.00/ min 16.00/min 15815 006 13674 4 62.00 mm[Hg] - Sitting 162.00 mm[Hg] - Sitting 98.00 Tympanic 70.00/ min 18.00/min 21070 006 04806 8 62.00 mm[Hg] - Sitting 162.00 mm[Hg] - Sitting 98.20 Tympanic 70.00/ min 18.00/min 85334 006 95608 2 66.00 mm[Hg] - Sitting 132.00 mm[Hg] - Sitting 98.60 Tympanic 74.00/ min 16.00/min 90418 006 84625 5 159.00 mg/dL 09515 006 95098 1 159.00 mg/dL 80417 006 42713 8 98.00 Tympanic 87695 006 20842 2 62.00 mm[Hg] - Sitting 162.00 mm[Hg] - Sitting 70.00/ min 89893 006 79033 7 264.00 mg/dL 48506 006 98486 7 264.00 mg/dL 50460 006 25963 4 196.00 mg/dL 80873 006 15230 3 98.20 Tympanic 88219 006 97770 6 271.00 mg/dL 93389 007 46755 3 97.20 Tympanic 69040 007 60910 2 63.00 mm[Hg] - Sitting 132.00 mm[Hg] - Sitting 98.50 Tympanic 94.00 % 66.00/ min 16.00/min 52964 007 04013 5 188.00 mg/dL 50116 007 31749 2 188.00 mg/dL 90931 007 12206 2 188.00 mg/dL 24993 007 36660 7 97.20 Tympanic 31567 007 97305 6 97.20 Tympanic 65721 007 81154 5 67.00 mm[Hg] - Sitting 152.00 mm[Hg] - Sitting 68.00/ min 31323 007 11713 0 141.00 mg/dL 64586 007 68712 3 141.00 mg/dL 64239 007 31724 1 366.00 mg/dL 47348 007 28887 7 366.00 mg/dL 13774 007 25560 7 98.00 Tympanic 54017 007 20383 6 324.00 mg/dL 75091 007 50366 3 98.00 Tympanic 62549 007 50243 7 324.00 mg/dL 46417 008 53721 0 98.00 Tympanic 61988 008 70959 2 97.90 Tympanic 71568 008 91032 0 98.20 Tympanic 60830 008 88264 0 73.00 mm[Hg] - Sitting 156.00 mm[Hg] - Sitting 98.60 Tympanic 99.00 % 66.00/ min 20.00/min 61400 008 45548 5 137.00 mg/dL 66571 008 91321 7 137.00 mg/dL 87851 008 45805 2 97.90 Tympanic 22271 008 22542 1 137.00 mg/dL 88749 008 78637 8 97.90 Tympanic 37545 008 35199 5 67.00 mm[Hg] - Sitting 124.00 /min 96620 008 78062 6 212.00 mg/dL 44348 008 57217 6 212.00 mg/dL 20020 008 09703 9 317.00 mg/dL 33866 008 33641 4 317.00 mg/dL 59128 008 61051 8 252.00 mg/dL 95988 008 76357 0 98.70 Tympanic 51326 008 46724 7 252.00 mg/dL 13902 008 16118 3 98.70 Tympanic 59041 009 59381 9 98.70 Tympanic 00418 009 43542 3 98.20 Tympanic 49298 009 67774 5 98.40 Tympanic 44542 009 32490 5 57.00 mm[Hg] - Sitting 129.00 mm[Hg] - Sitting 98.30 Tympanic 97.00 % 65.00/ min 18.00/min 28950 009 83854 1 255.00 mg/dL 52900 009 38656 4 255.00 mg/dL 99504 009 35454 5 98.20 Tympanic 10574 009 01098 0 255.00 mg/dL 15091 009 41687 0 98.20 Tympanic 00193 009 25899 4 63.00 mm[Hg] - Lying Down 102.00 mm[Hg] - Lying Down 58.00/ min 45573 009 79034 0 167.00 mg/dL 52238 009 16628 1 167.00 mg/dL 54587 009 42267 2 164.00 mg/dL 73658 009 96393 1 164.00 mg/dL 25196 009 26657 5 208.00 mg/dL 24691 010 39741 3 98.40 Tympanic 50002 010 20601 5 98.40 Tympanic 79367 010 28825 7 66 NI 63548 010 01105 4 60.00 mm[Hg] - Sitting 143.00 mm[Hg] - Sitting 98.90 Tympanic 98.00 % 67.00/ min 18.00/min 91237 010 40552 2 214.00 mg/dL 88895 010 07615 0 214.00 mg/dL 10990 010 92925 7 214.00 mg/dL 19297 010 62851 6 64.00 mm[Hg] - Sitting 110.00 mm[Hg] - Sitting 72.00/ min 64803 010 81207 7 98.40 Tympanic 08287 010 98146 1 212.00 mg/dL 56966 010 47840 2 212.00 mg/dL 87362 010 42397 1 115.00 mg/dL 08071 010 31416 0 115.00 mg/dL 34562 010 07727 4 98.50 Tympanic 23650 010 54723 4 150.00 mg/dL 70795 010 75572 0 150.00 mg/dL 71690 011 16751 9 98.60 Tympanic 02873 011 33578 1 67.00 mm[Hg] - Sitting 144.00 mm[Hg] - Sitting 98.20 Tympanic 98.00 % 61.00/ min 18.00/min 79807 011 67775 7 290.00 mg/dL 32182 011 40015 2 290.00 mg/dL 88958 011 99372 2 290.00 mg/dL 40154 011 11940 7 54.00 mm[Hg] - Sitting 136.00 mm[Hg] - Sitting 101.00 /min 85086 011 49703 7 98.60 Tympanic 48549 011 48240 5 240.00 mg/dL 34482 011 07523 1 240.00 mg/dL 16366 011 23744 1 156.00 mg/dL 95265 011 46370 9 156.00 mg/dL 15970 011 14146 0 97.80 Tympanic 76843 011 54049 8 343.00 mg/dL 51393 012 05069 9 97.90 Tympanic 07213 012 26146 2 466.00 mg/dL 00693 012 83016 1 466.00 mg/dL 41477 012 44156 3 466.00 mg/dL 00800 012 60264 8 97.90 Tympanic 22784 012 89631 8 56.00 mm[Hg] - Sitting 96.00 mm[Hg] - Sitting 61.00/ min 82338 012 21854 7 350.00 mg/dL 14805 012 96081 5 350.00 mg/dL 33285 012 24289 6 111.00 mg/dL 74249 012 01082 0 111.00 mg/dL 72464 012 98698 5 98.40 Tympanic 51124 012 43743 6 114.00 mg/dL 56941 013 83417 4 74.00 mm[Hg] - Sitting 112.00 mm[Hg] - Sitting 98.40 Tympanic 70.00/ min 18.00/min 90873 013 47297 8 244.00 mg/dL 06360 013 00139 7 244.00 mg/dL 14438 013 33368 1 244.00 mg/dL 70240 013 73325 1 98.20 Tympanic 73793 013 98173 7 72.00 mm[Hg] - Sitting 119.00 mm[Hg] - Sitting 76.00/ min 72934 013 94660 7 253.00 mg/dL 09107 013 73882 4 253.00 mg/dL 63213 013 83529 9 156.00 mg/dL 90959 013 45137 5 156.00 mg/dL 51483 013 89011 4 97.90 Tympanic 93195 013 58857 5 189.00 mg/dL 64877 014 16959 9 98.10 Tympanic 13494 014 43529 0 61.00 mm[Hg] - Sitting 139.00 mm[Hg] - Sitting 98.20 Forehead Scan 99.00 % 66.00/ min 18.00/min 94121 014 78638 3 169.00 mg/dL 88052 014 80822 3 98.10 Tympanic 98947 014 64119 3 75.00 mm[Hg] - Sitting 121.00 mm[Hg] - Sitting 71.00/ min 88119 014 45539 9 221.00 mg/dL 45230 014 59331 9 62.00 mg/dL 93624 014 71608 5 62.00 mg/dL 82911 014 07399 8 156.00 mg/dL 27823 014 40721 6 98.10 Tympanic 26677 014 75773 7 156.00 mg/dL 47297 015 36987 4 01255 015 04181 7 62.00 mm[Hg] - Sitting 142.00 mm[Hg] - Sitting 98.20 Tympanic 99.00 % 67.00/ min 18.00/min 35054 015 11036 9 120.00 mg/dL 77260 015 78157 7 98.00 Tympanic 17135 015 71439 2 82.00 mm[Hg] - Sitting 119.00 /min 19681 015 30371 9 110.00 mg/dL 59133 015 67985 6 104.00 mg/dL 70308 015 77276 0 100.00 mg/dL 09585 015 56501 2 98.10 Tympanic 44087 015 67451 6 100.00 mg/dL 16373 016 30669 2 67.00 mm[Hg] - Sitting 147.00 mm[Hg] - Sitting 99.00 Tympanic 99.00 % 78.00/ min 20.00/min 86532 016 18307 5 158.00 mg/dL 85086 016 24446 1 158.00 mg/dL 31620 016 14942 2 158.00 mg/dL 91321 016 58126 0 66.00 mm[Hg] - Sitting 121.00 mm[Hg] - Sitting 74.00/ min 80175 016 71752 1 97.00 mg/dL 41541 016 68452 5 97.00 mg/dL 85177 016 01052 4 78.00 mg/dL 57706 016 13405 6 78.00 mg/dL 92437 016 49524 5 248.00 mg/dL 01792 016 76510 8 248.00 mg/dL 00076 017 51904 3 54.00 mm[Hg] - Sitting 142.00 mm[Hg] - Sitting 98.30 Tympanic 99.00 % 76.00/ min 18.00/min 02960 017 24057 4 267.00 mg/dL 47704 017 64352 6 73.00 mm[Hg] - Sitting 109.00 mm[Hg] - Sitting 70.00/ min 84484 017 03876 1 184.00 mg/dL 84683 017 54348 5 184.00 mg/dL 77961 017 00623 9 248.00 mg/dL 78006 017 54376 8 299.00 mg/dL 43273 017 72234 3 299.00 mg/dL 36193 018 45955 7 50.00 mm[Hg] - Sitting 125.00 mm[Hg] - Sitting 98.30 Tympanic 98.00 % 76.00/ min 16.00/min 50348 018 76469 3 168.00 mg/dL 69860 018 16767 0 75.00 mm[Hg] - Sitting 121.00 mm[Hg] - Sitting 70.00/ min 33354 018 67026 7 264.00 mg/dL 79677 018 82959 6 132.00 mg/dL 69902 018 09701 6 154.00 mg/dL 02753 018 43586 6 154.00 mg/dL 80162 019 99248 4 63.00 mm[Hg] - Sitting 147.00 mm[Hg] - Sitting 98.50 Tympanic 99.00 % 69.00/ min 18.00/min 44026 019 83130 9 159.00 mg/dL 59740 019 49431 8 73.00 mm[Hg] - Sitting 110.00 mm[Hg] - Sitting 72.00/ min 86309 019 67827 4 191.00 mg/dL 50907 019 57637 8 70.00 mg/dL 36983 019 73500 4 70.00 mg/dL 09945 019 04602 6 198.00 mg/dL 24070 019 33779 0 198.00 mg/dL 67057 020 86814 2 59.00 mm[Hg] - Sitting 131.00 mm[Hg] - Sitting 98.90 Tympanic 99.00 % 69.00/ min 18.00/min 50011 020 60223 7 299.00 mg/dL 81749 020 08042 0 62.00 mm[Hg] - Sitting 132.00 mm[Hg] - Sitting 68.00/ min 40619 020 96269 3 299.00 mg/dL 14952 020 12585 3 299.00 mg/dL 36407 020 81214 9 220.00 mg/dL 43757 020 68581 1 220.00 mg/dL 84590 020 60367 1 270.00 mg/dL 88241 020 88076 4 270.00 mg/dL 85357 020 08654 9 143.00 mg/dL 14629 020 83545 4 143.00 mg/dL 15442 021 03349 0 140.00 mg/dL 29009 021 11319 0 67.00 mm[Hg] - Sitting 130.00 mm[Hg] - Sitting 68.00/ min 26134 021 14301 8 140.00 mg/dL 95005 021 62861 6 140.00 mg/dL 48750 021 69930 8 156.00 mg/dL 72917 021 83326 1 156.00 mg/dL 14284 021 66295 5 146.00 mg/dL 30918 021 27330 4 146.00 mg/dL Immunizations Vaccine Date Status COVID-19 09/20/2023 Completed Other 10/08/2023 Completed Shingles 05/27/2011 Completed Tetanus 04/13/2022 Completed TDaP 04/13/2022 Completed Shingles 2 10/05/2018 Completed
--- OUTSIDE RECORDS SUMMARY | 2024-10-03 11:07 | External Medical Summary | Continuity of Care Document ---
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 PAD (peripheral artery disease)(Discharge Diagnosis) - 09/08/24 Pressure ulcer of heel(Discharge Diagnosis) - 09/08/24 Amputated toe(Discharge Diagnosis) - 09/08/24 Diabetic foot ulcer(Discharge Diagnosis) - 09/08/24 Discharge Disposition: Home or Self Care Attending [...] Ordered cefpodoxime 100 mg oral tablet Start: 08/30/24 2:44:00 PM EDT, 2 tab, PO, q12h Start Date: 08/30/24 Status: Ordered CoQ10 Start: 06/26/24 4:02:00 PM [...] Start Date: 06/26/24 Status: Ordered Mental Status 09/08/24 Barriers to Learning one year None evide nt Mandatory Health Literacy Documentation Yes Health Literacy Communication Barriers N ever Primary Language Monegasque Problem List Condition Confirmation Course Effective Dates Status Health St at[facility] Informant Ischemic necrosis of foot Confirmed Active PAD (peripheral artery disease) Confirmed Active Pressure ulcer of heel Confirmed Active Diagnosis Diagnosis Type Effective Dates Health Status Cl inical Service Informant Ischemic necrosis of foot Discharge Diagnosis 09/08/24 Non-Specified Pressure ulcer of heel Discharge Diagnosis 09/08/24 Non-Specified PAD (peripheral artery disease) Discharge Diagnosis 09/08/24 Non-Specified Diabetic foot ulcer Discharge Diagnosis 09/08/24 Non-Specified Amputated toe Discharge Diagnosis 09/08/24 Non-Specified Procedures Procedure Date Related Diagnosis Body Site Status Amputation below-knee 1 07/04/24 C ompleted 1Left Social History Social History Type Response Smoking Status Never smoked cigaret luana Sex Male Sex Representation Male (finding) Ortho Outpt Note * Lucy Cruz: PERFORM Lucy Cruz: PERFORM Event Display: Ortho Outpt Note Authored Date: [id number] Name:JUSTIN BARNES Patient Number:[id number] :1945 Date of Service:09/08/2024 CHIEF COMPLAINT: Follow-up 1) s/p right great toe amputation, DOS: 08/18/2024 2)s/p left BKA, DOS: 07/04/2024 Vinicius&D left BKA stump infection, DOS: 07/26/2024 HPI: [id number] s/p the above noted procedures. He is currently at [facility] and is doing PT. They are having him stand flat footed to work on his balance in preparation to return home.He has no issues with his stump and reports no drainage or redness. He is most concerned about his heel wound which is painful.His care team at [facility] is applying a dressing daily to the heel and every few days to the toe. He did follow-up with infectious diseasebut does not report any information about his antibiotic status nor are they listed on his medication paperwork from [facility]. Plan discussed with his via the phone during the visit. PHYSICAL EXAM: Focus on the left lower extremity: No redness, drainage, or swelling. Knee ROM: 0 /0 / 120 Focus on the right lower extremity: 1.5x1.5 area of discolored black eschar over the heel. No surrounding erythema or swelling. There is hypertrophic skin around it. No drainage. Petechial discoloration of the fourth and fifth toes. Blanching. Second toe is not swollen or red. There is an eschar present. Sutures were removed Review of labs from 09/04/2024 WBC10.8 Hemiglobin 16 hematocrit 30 platelets 434 BUN 35 Albumin 2.3 Sed rate 45, elevated CRP 0.95 and WNL IMPRESSION: 1) 3 weekss/prightsecond toe amputation 2) Right foot pressure ulcer 3) s/p left BKA and stump infection, wound healed and responding to antibiotics PLAN: Recommend a stump reinforcing steel machine operator or elastic stocking to help with compression of the stump Continue to keep pressure off of heel wound and apply dressing according to instructions. Recommendchanging the toe dressing every few days. He is permitted to apply weight to the flat foot. Follow-up with infectious disease as scheduled. [facility] is closed today and unable to get information regarding most recent visit. Follow-up in 3 weeks ATTESTATION: ILucy, scribing for and in the presence of, Marquis Dominguez, on this date,1:42:46. Electronic Signature on File Electronically Reviewed/Signed by: Lucy Cruz Author Signature Dt/Tm:09/08/2024 12:45 PM Electronically Reviewed/Signed by: Marquis Dominguez [facility] Signature Dt/Tm: 09/08/2024 03:22 PM Division of Sports Medicine [place] Patient Care team information Care Team Personnel Name: DO Quiroga Jessie L Position: Referring DIRECT Member Role: Primary Care Provider Address: [address] [address]
--- OUTSIDE RECORDS SUMMARY | 2024-10-03 11:07 | External Medical Summary | Continuity Of Care Document ---
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 unit/0.1 mL intradermal injection solution [Tuberculin PPD] 0.1mL Intradermal 1 time For PPD 2nd Step Give 2nd Step PPD Day 1 and Read results Day 3 (schedule 7 days after 1st READ) 0.1mL 09/08 Inactiv e 2023 26006 98393 0 1 time Intrad ermal False Humalog [...] order For Diabetes 08/25 Inactiv e 2023 83062 77266 9 4 times a day Subcut aneous False Aspirin 325 mg tablet [generic] 325 By Mouth Twice daily For Anticoagulati on 325 09/25 Active 2023 23019 20376 1 Twice daily By Mouth False Ferrous sulfate 325 mg (65 mg iron) tablet [generic] 325 By Mouth Once daily For anemia 325 2023 Active 2023 30660 11797 5 Once daily By Mouth False Linezolid 600 mg tablet [generic] 600 mg By Mouth Every 12 hours For MRSA INFECTION L BKA 600 mg 08/25 Inactiv e 2023 39307 87788 1 Every 12 hours By Mouth False Cefpodoxime 200 mg tablet [generic] 400 mg By Mouth Twice daily For MRSA INFECTION L BKA 400 mg 08/25 Inactiv e 2023 34077 97663 0 Twice daily By Mouth False Coenzyme Q10 100 mg tablet [generic] 100 mg By Mouth Once daily For SUPP 100 mg 2023 Active 2023 90281 37330 0 Once daily By Mouth False Levothyroxi ne 50 mcg tablet [generic] 50mcg By Mouth Once daily For hypothyroidis m 50mcg 2023 Active 2023 06143 44541 0 Once daily By Mouth False One A Day Men Complete 240 mcg-25 mcg-300 mcg tablet 1 tab By Mouth Once daily For supplement 1 tab 2023 Active 2023 70029 26408 1 Once daily By Mouth False Cholecalcif adalberto (vitamin D3) 50 mcg (2,000 unit) tablet [generic] 1 TAB By Mouth Once daily For SUPP 1 TAB 2023 Active 2023 28659 97417 1 Once daily By Mouth False Cetirizine 10 mg tablet [generic] 1 TAB By Mouth At bedtime For Allergies 1 TAB 2023 Active 2023 25559 36898 0 At bedtime By Mouth False Timolol maleate 0.25 % eye drops [generic] 1 drop Both Eyes Twice daily For glaucoma 1 drop 2023 0000 0000 Active 2023 07841 32244 5 Twice daily Both Eyes False Alendronate 35 mg tablet [generic] 35mg By Mouth Every week For SIADH 35mg 08/31 Inactiv e 2023 66679 52598 5 Every week By Mouth False Lantus Solostar U-100 Insulin 100 unit/mL (3 mL) subcutaneou s pen 18 units Subcutaneous Every morning For DIABETES 18 units 08/25 Inactiv e 2023 75692 89579 0 Every morning Subcut aneous False Lantus Solostar U-100 Insulin 100 unit/mL (3 mL) subcutaneou s pen 18 units Subcutaneous Every morning For DIABETES 18 units 2023 Active 2023 62879 68648 0 Every morning Subcut aneous False Linezolid 600 mg tablet [generic] 600 mg By Mouth Every 12 hours For MRSA INFECTION L BKA 600 mg 08/28 Inactiv e 2023 19906 84222 1 Every 12 hours By Mouth False [...] order For Diabetes 08/31 Inactiv e 2023 33051 99881 9 4 times a day Subcut aneous False Cefpodoxime 200 mg tablet [generic] 400 mg By Mouth Twice daily For MRSA INFECTION L BKA 400 mg 08/28 Inactiv e 2023 02788 28285 0 Twice daily By Mouth False Brimonidine 0.1 % eye drops [generic] 1 drop Both Eyes Twice daily For glaucoma 1 drop 2023 Active 2023 95920 97417 0 Twice daily Both Eyes False Metoprolol succinate ER 50 mg tablet,exte nded release 24 hr [generic] 50 mg By Mouth Once daily HOLD FOR SBP <100, or pulse <60 For HTN 50 mg 2023 Active 2023 50260 30475 1 Once daily By Mouth False Amlodipine 2.5 mg tablet [generic] 2.5 mg By Mouth Once daily For HTN 2.5 mg 2023 Active 2023 44901 92543 5 Once daily By Mouth False Docusate sodium 100 mg capsule [generic] 100mg By Mouth Twice daily as needed For constipation HOLD FOR LOOSE STOOLS 100mg 2023 Active 2023 16356 08461 1 Twice daily as needed By Mouth False Atorvastati n 40 mg tablet [generic] 40mg By Mouth Once daily For HDL 40mg 08/26 Inactiv e 2023 53975 36576 5 Once daily By Mouth False Tylenol 325 mg tablet 2 tabs By Mouth Every 4 hours as needed For Pain DO NOT EXCEED 3000 MG APAP/24 Hours 2 tabs 2023 Active 2023 66302 61438 0 Every 4 hours as needed By Mouth False Tylenol 325 mg tablet 2 tabs By Mouth Every 4 hours as needed For Fever >100 DO NOT EXCEED 3000 MG APAP/24 Hours 2 tabs 2023 Active 2023 21186 83530 0 Every 4 hours as needed By Mouth False Dulcolax (bisacodyl) 10 mg rectal suppository One Suppository per rectum PRN if Milk of Magnisia ineffective. Give on day 5 of no BM 1 sup 2023 Active 2023 58649 50124 1 Daily as needed Rectal False Fleet Enema 19 gram-7 gram/118 mL Administer per rectum PRN one time if dulcolax suppository not effective. Give on day 6 of no BM 1 2023 Active 2023 03656 51980 6 Daily as needed Rectal False Dextrose 50 % in water (D50W) intravenous solution [generic] Dextrose 50% evonne 20-50 ml (slow push) Intravenous if Glucagon not effective after 15 minutes. CALL 911 for ED Evaluation. 50% evonne 2023 Active 2023 76277 65319 9 Intrav enous False Glucagon (HCl) Emergency Kit 1 mg solution for injection Administer Glucagon 1 mg Intramuscular if 15 minutes after GLucose Gel is administered Glucose remains less than 70 1 mg 2023 Active 2023 94143 66863 2 Intram uscula r False Glucose Gel 40 % oral gel [Dextrose] PRN If resident is unable to swallow (with or without symptoms) and Glucose results less than 70 give GLucose 40% Gel 1 tube orally - Recheck Glucose 15 minutes after administratio n. 1 tube 2023 Active 2023 68426 23884 8 By Mouth False Milk of Magnesia 400 mg/5 mL oral suspension [Magnesium hydroxide] PRN 30ml By Mouth Daily as needed for constipation one time daily if no BM, on day 4 of no BM (PRN refer to instructions) For Constipation 30 mL 2023 Active 2023 51474 99448 6 Daily as needed By Mouth False Atorvastati n 40 mg tablet [generic] 08/26 Inactiv e 2023 27909 35832 5 Atorvastati n 40 mg tablet [generic] 40mg By Mouth Once daily For HDL 40mg 2023 Active 2023 46398 25205 5 Once daily By Mouth False Insulin aspart (U-100) 100 unit/mL (3 mL) subcutaneou s pen [generic] 15 units Subcutaneous 1 time For dm 15 units 08/26 Inactiv e 2023 72769 24570 5 1 time Subcut aneous False Humalog KwikPen (U-100) Insulin 100 unit/mL subcutaneou s 15 units Subcutaneous 1 time For dm 15 units 08/27 Inactiv e 2023 13748 46810 9 1 time Subcut aneous False Linezolid 600 mg tablet [generic] 600 mg By Mouth Every 12 hours For MRSA INFECTION L BKA 600 mg 09/06 Inactiv e 2023 33647 12139 1 Every 12 hours By Mouth False Cefpodoxime 200 mg tablet [generic] 400 mg By Mouth Twice daily For MRSA INFECTION L BKA 400 mg 08/31 Inactiv e 2023 45210 78241 0 Twice daily By Mouth False Senna 8.6 mg tablet 8.6 mg By Mouth Once daily For Constipation 8.6 mg 09/07 Inactiv e 2023 14057 97963 1 Once daily By Mouth False Humalog [...] abnormalities . Per Carb 2023 Active 2023 49331 24147 9 4 times a day Subcut aneous False Alendronate 35 mg tablet [generic] 08/31 Inactiv e 2023 68113 10827 5 Alendronate 35 mg tablet [generic] 35mg By Mouth Every week For Osteoporosis 35mg 2023 Active 2023 23967 06333 5 Every week By Mouth False ProSource 10 gram-100 kcal/30 mL oral liquid 30 ml By Mouth Once daily For wound healing 30 ml 2023 Active 2023 24030 76991 2 Once daily By Mouth False Clotrimazol e 1 % topical cream [generic] 1 applicaiton Topical Twice daily For tinea, apply to groin rash after cleansing and throughouly drying. Can discontinue order 3 days after rash resolves. 1 applica stacy 09/08 Inactiv e 2023 91492 96576 0 Twice daily Topica l False MAGIC MIX 1:1:1:1 : ZINC OXIDE EXTERNAL OINTMENT 40%; HYDROCOTISO NE EXTERNAL CREAM 1%; NYSTATIN EXTERNAL CREAM 971758V/GM; SILVADENE CREAM 1% Every shift Apply topically to MASD area on coccyx/buttoc ks each shift and as needed for incontinence care For MASD on coccyx layer 2023 Active 2023 Every shift Topica l False Senna 8.6 mg tablet 8.6 mg By Mouth Once daily For Constipation 8.6 mg 09/07 Inactiv e 2023 14346 39724 1 Once daily By Mouth False Senna 8.6 mg tablet 8.6 mg By Mouth Once daily As Needed For Constipation 8.6 mg 2023 Active 2023 69652 02719 1 Once daily By Mouth False BD AutoShield Duo Pen Needle 30 gauge x 3/16in 1 pen needle Subcutaneous 4 times a day For DM 1 pen needle 2023 Active 2023 96060 52532 5 4 times a day Subcut aneous False Hydrocortis one 1 % topical ointment [generic] 1 application Topical Twice daily For tinea *mix 1:1 with clotrimazole cream and apply to clean/dry groin rash 1 applica peggy 09/19 Active 2023 89714 12259 6 Twice daily Topica l False Clotrimazol e 1 % topical cream [generic] 1 applicaiton Topical Twice daily For tinea, apply to groin rash after cleansing and throughouly drying. MIX WITH HYDROCORTISON E Can discontinue order 3 days after rash resolves. 1 applica stacy 2023 Active 2023 77249 78035 0 Twice daily Topica l False Humalog KwikPen (U-100) Insulin 100 unit/mL subcutaneou s 10/10/ 2024 10/10 /2024 Inactiv e 2023 31528 82519 9 MediHoney HCS 4 1/2in X 4 1/2in bandage Cleanse area with NSS, apply one medihoney hydrocolloid dressing, non adherent dressing, kerlix secure with paper tape daily. For wound stage III 1 2023 Active 2023 97616 34916 1 Once daily Topica l False Problems Code Description Start Date End Date Status D64.9 Anemia, unspecified 08/25/2024 Activ e I25.10 Atherosclerotic hear t disease of [place] coronary artery without angina pectoris 08/25/2024 [...] weight Temperature SpO2 Blood Sugar Pulse Respirations 57048 8 67.00 mm[Hg] - Sitting 145.00 mm[Hg] - Sitting 98.50 Forehead Scan 96.00 % 81.00/ min 16.00/min 01468 004 02072 2 67.00 mm[Hg] - Sitting 145.00 mm[Hg] - Sitting 98.50 Tympanic 81.00/ min 16.00/min 80449 004 78756 5 56.00 mm[Hg] - Sitting 142.00 mm[Hg] - Sitting 136.40 NI 100.20 Tympanic 96.00 % 92.00/ min 18.00/min 66171 004 00124 6 59301 004 63524 4 143.00 mg/dL 12973 004 20665 0 97.80 Tympanic 96411 005 19010 7 60.00 mm[Hg] - Sitting 140.00 mm[Hg] - Sitting 98.00 Tympanic 84.00/ min 18.00/min 56449 005 40561 0 63.00 mm[Hg] - Sitting 141.00 mm[Hg] - Sitting 98.20 Tympanic 92.00 % 63.00/ min 16.00/min 07337 005 09223 8 69.00 mm[Hg] - Sitting 106.00 mm[Hg] - Sitting 97.20 Tympanic 13152 005 38241 7 69.00/ min 16.00/min 63764 005 03690 3 69.00 mm[Hg] - Sitting 106.00 mm[Hg] - Sitting 98.20 Tympanic 69.00/ min 16.00/min 08787 005 57368 1 367.00 mg/dL 88387 005 43791 2 97.20 Tympanic 83358 005 77096 4 97.20 Tympanic 05902 005 84087 0 69.00 mm[Hg] - Sitting 106.00 mm[Hg] - Sitting 69.00/ min 51210 005 24822 3 452.00 mg/dL 30461 005 78945 3 452.00 mg/dL 88259 005 31915 5 352.00 mg/dL 32563 005 18287 3 352.00 mg/dL 92559 005 45207 7 98.20 Tympanic 29266 005 3 101.00 mg/dL 31259 005 8 101.00 mg/dL 92511 006 63730 4 66.00 mm[Hg] - Sitting 107.00 mm[Hg] - Sitting 98.00 Tympanic 66.00/ min 18.00/min 56092 006 08202 0 62.00 mm[Hg] - Sitting 162.00 mm[Hg] - Sitting 98.20 Tympanic 96.00 % 60.00/ min 16.00/min 88659 006 27695 4 62.00 mm[Hg] - Sitting 162.00 mm[Hg] - Sitting 98.00 Tympanic 70.00/ min 18.00/min 77131 006 25298 8 62.00 mm[Hg] - Sitting 162.00 mm[Hg] - Sitting 98.20 Tympanic 70.00/ min 18.00/min 27117 006 01224 2 66.00 mm[Hg] - Sitting 132.00 mm[Hg] - Sitting 98.60 Tympanic 74.00/ min 16.00/min 81341 006 33529 5 159.00 mg/dL 90793 006 24880 1 159.00 mg/dL 22717 006 65433 8 98.00 Tympanic Immunizations Vaccine Date Status COVID-19 09/20/2023 Completed Other 10/08/2023 Completed Shingles 05/27/2011 Completed Tetanus 04/13/2022 Completed TDaP 04/13/2022 Completed Shingles 2 10/05/2018 Completed
--- OUTSIDE RECORDS SUMMARY | 2024-10-03 11:07 | External Medical Summary | Continuity Of Care Document ---
Author Name Unknown Address [address] [address] Organization [facility] () Care Team Providers Care Linen Controller Name Role Phone DO Machado Amy Primary Care Provider [phone] Allergies Allergy Reaction Start Date End Date [...] 3 0.1 mL 08/29 Inactiv e 2023 87916 15981 0 1 time Intrad ermal False Tubersol 5 tub. unit/0.1 mL intradermal injection solution [Tuberculin PPD] 0.1mL Intradermal 1 time For PPD 2nd Step Give 2nd Step PPD Day 1 and Read results Day 3 (schedule 7 days after 1st READ) 0.1mL 09/08 Inactiv e 2023 01465 04679 0 1 time Intrad ermal False Humalog [...] order For Diabetes 08/25 Inactiv e 2023 54859 45370 9 4 times a day Subcut aneous False Aspirin 325 mg tablet [generic] 325 By Mouth Twice daily For Anticoagulati on 325 09/25 Active 2023 28002 15732 1 Twice daily By Mouth False Ferrous sulfate 325 mg (65 mg iron) tablet [generic] 325 By Mouth Once daily For anemia 325 2023 Active 2023 36835 85698 5 Once daily By Mouth False Linezolid 600 mg tablet [generic] 600 mg By Mouth Every 12 hours For MRSA INFECTION L BKA 600 mg 08/25 Inactiv e 2023 60787 35238 1 Every 12 hours By Mouth False Cefpodoxime 200 mg tablet [generic] 400 mg By Mouth Twice daily For MRSA INFECTION L BKA 400 mg 08/25 Inactiv e 2023 29692 69762 0 Twice daily By Mouth False Coenzyme Q10 100 mg tablet [generic] 100 mg By Mouth Once daily For SUPP 100 mg 2023 Active 2023 58718 83521 0 Once daily By Mouth False Levothyroxi ne 50 mcg tablet [generic] 50mcg By Mouth Once daily For hypothyroidis m 50mcg 2023 Active 2023 80178 85226 0 Once daily By Mouth False One A Day Men Complete 240 mcg-25 mcg-300 mcg tablet 1 tab By Mouth Once daily For supplement 1 tab 2023 Active 2023 77287 38480 1 Once daily By Mouth False Cholecalcif adalberto (vitamin D3) 50 mcg (2,000 unit) tablet [generic] 1 TAB By Mouth Once daily For SUPP 1 TAB 2023 Active 2023 61125 15123 1 Once daily By Mouth False Cetirizine 10 mg tablet [generic] 1 TAB By Mouth At bedtime For Allergies 1 TAB 2023 Active 2023 81175 23731 0 At bedtime By Mouth False Timolol maleate 0.25 % eye drops [generic] 1 drop Both Eyes Twice daily For glaucoma 1 drop 2023 0000 0000 Active 2023 98951 50134 5 Twice daily Both Eyes False Alendronate 35 mg tablet [generic] 35mg By Mouth Every week For SIADH 35mg 08/31 Inactiv e 2023 44293 31026 5 Every week By Mouth False Lantus Solostar U-100 Insulin 100 unit/mL (3 mL) subcutaneou s pen 18 units Subcutaneous Every morning For DIABETES 18 units 08/25 Inactiv e 2023 83676 82412 0 Every morning Subcut aneous False Lantus Solostar U-100 Insulin 100 unit/mL (3 mL) subcutaneou s pen 18 units Subcutaneous Every morning For DIABETES 18 units 2023 Active 2023 40252 21769 0 Every morning Subcut aneous False Linezolid 600 mg tablet [generic] 600 mg By Mouth Every 12 hours For MRSA INFECTION L BKA 600 mg 08/28 Inactiv e 2023 50981 03483 1 Every 12 hours By Mouth False [...] order For Diabetes 08/31 Inactiv e 2023 15582 47205 9 4 times a day Subcut aneous False Cefpodoxime 200 mg tablet [generic] 400 mg By Mouth Twice daily For MRSA INFECTION L BKA 400 mg 08/28 Inactiv e 2023 46403 17339 0 Twice daily By Mouth False Brimonidine 0.1 % eye drops [generic] 1 drop Both Eyes Twice daily For glaucoma 1 drop 2023 Active 2023 57992 84208 0 Twice daily Both Eyes False Metoprolol succinate ER 50 mg tablet,exte nded release 24 hr [generic] 50 mg By Mouth Once daily HOLD FOR SBP <100, or pulse <60 For HTN 50 mg 2023 Active 2023 66439 33260 1 Once daily By Mouth False Amlodipine 2.5 mg tablet [generic] 2.5 mg By Mouth Once daily For HTN 2.5 mg 2023 Active 2023 74671 02023 5 Once daily By Mouth False Docusate sodium 100 mg capsule [generic] 100mg By Mouth Twice daily as needed For constipation HOLD FOR LOOSE STOOLS 100mg 2023 Active 2023 22278 85277 1 Twice daily as needed By Mouth False Atorvastati n 40 mg tablet [generic] 40mg By Mouth Once daily For HDL 40mg 08/26 Inactiv e 2023 08047 81319 5 Once daily By Mouth False Tylenol 325 mg tablet 2 tabs By Mouth Every 4 hours as needed For Pain DO NOT EXCEED 3000 MG APAP/24 Hours 2 tabs 2023 Active 2023 57892 09702 0 Every 4 hours as needed By Mouth False Tylenol 325 mg tablet 2 tabs By Mouth Every 4 hours as needed For Fever >100 DO NOT EXCEED 3000 MG APAP/24 Hours 2 tabs 2023 Active 2023 54822 97246 0 Every 4 hours as needed By Mouth False Dulcolax (bisacodyl) 10 mg rectal suppository One Suppository per rectum PRN if Milk of Magnisia ineffective. Give on day 5 of no BM 1 sup 2023 Active 2023 36277 17391 1 Daily as needed Rectal False Fleet Enema 19 gram-7 gram/118 mL Administer per rectum PRN one time if dulcolax suppository not effective. Give on day 6 of no BM 1 2023 Active 2023 19018 23535 6 Daily as needed Rectal False Dextrose 50 % in water (D50W) intravenous solution [generic] Dextrose 50% evonne 20-50 ml (slow push) Intravenous if Glucagon not effective after 15 minutes. CALL 911 for ED Evaluation. 50% evonne 2023 Active 2023 35048 48983 9 Intrav enous False Glucagon (HCl) Emergency Kit 1 mg solution for injection Administer Glucagon 1 mg Intramuscular if 15 minutes after GLucose Gel is administered Glucose remains less than 70 1 mg 2023 Active 2023 35047 25028 2 Intram uscula r False Glucose Gel 40 % oral gel [Dextrose] PRN If resident is unable to swallow (with or without symptoms) and Glucose results less than 70 give GLucose 40% Gel 1 tube orally - Recheck Glucose 15 minutes after administratio n. 1 tube 2023 Active 2023 90561 09556 8 By Mouth False Milk of Magnesia 400 mg/5 mL oral suspension [Magnesium hydroxide] PRN 30ml By Mouth Daily as needed for constipation one time daily if no BM, on day 4 of no BM (PRN refer to instructions) For Constipation 30 mL 2023 Active 2023 44102 86726 6 Daily as needed By Mouth False Atorvastati n 40 mg tablet [generic] 08/26 Inactiv e 2023 87283 19411 5 Atorvastati n 40 mg tablet [generic] 40mg By Mouth Once daily For HDL 40mg 2023 Active 2023 19856 65875 5 Once daily By Mouth False Insulin aspart (U-100) 100 unit/mL (3 mL) subcutaneou s pen [generic] 15 units Subcutaneous 1 time For dm 15 units 08/26 Inactiv e 2023 60498 27631 5 1 time Subcut aneous False Humalog KwikPen (U-100) Insulin 100 unit/mL subcutaneou s 15 units Subcutaneous 1 time For dm 15 units 08/27 Inactiv e 2023 83329 12409 9 1 time Subcut aneous False Linezolid 600 mg tablet [generic] 600 mg By Mouth Every 12 hours For MRSA INFECTION L BKA 600 mg 09/06 Inactiv e 2023 80799 67131 1 Every 12 hours By Mouth False Cefpodoxime 200 mg tablet [generic] 400 mg By Mouth Twice daily For MRSA INFECTION L BKA 400 mg 08/31 Inactiv e 2023 39558 83484 0 Twice daily By Mouth False Senna 8.6 mg tablet 8.6 mg By Mouth Once daily For Constipation 8.6 mg 09/07 Inactiv e 2023 83097 41522 1 Once daily By Mouth False Humalog [...] abnormalities . Per Carb 2023 Active 2023 71465 58702 9 4 times a day Subcut aneous False Alendronate 35 mg tablet [generic] 08/31 Inactiv e 2023 25160 27884 5 Alendronate 35 mg tablet [generic] 35mg By Mouth Every week For Osteoporosis 35mg 2023 Active 2023 97206 29293 5 Every week By Mouth False ProSource 10 gram-100 kcal/30 mL oral liquid 30 ml By Mouth Once daily For wound healing 30 ml 2023 Active 2023 51579 34792 2 Once daily By Mouth False Clotrimazol e 1 % topical cream [generic] 1 applicaiton Topical Twice daily For tinea, apply to groin rash after cleansing and throughouly drying. Can discontinue order 3 days after rash resolves. 1 applica stacy 09/08 Inactiv e 2023 78029 18774 0 Twice daily Topica l False MAGIC MIX 1:1:1:1 : ZINC OXIDE EXTERNAL OINTMENT 40%; HYDROCOTISO NE EXTERNAL CREAM 1%; NYSTATIN EXTERNAL CREAM 329530K/GM; SILVADENE CREAM 1% Every shift Apply topically to MASD area on coccyx/buttoc ks each shift and as needed for incontinence care For MASD on coccyx layer 2023 Active 2023 Every shift Topica l False Senna 8.6 mg tablet 8.6 mg By Mouth Once daily For Constipation 8.6 mg 09/07 Inactiv e 2023 54911 42260 1 Once daily By Mouth False Senna 8.6 mg tablet 8.6 mg By Mouth Once daily As Needed For Constipation 8.6 mg 2023 Active 2023 00049 19812 1 Once daily By Mouth False BD AutoShield Duo Pen Needle 30 gauge x 3/16in 1 pen needle Subcutaneous 4 times a day For DM 1 pen needle 2023 Active 2023 14110 16003 5 4 times a day Subcut aneous False Hydrocortis one 1 % topical ointment [generic] 1 application Topical Twice daily For tinea *mix 1:1 with clotrimazole cream and apply to clean/dry groin rash 1 applica peggy 09/19 Active 2023 30224 23249 6 Twice daily Topica l False Clotrimazol e 1 % topical cream [generic] 1 applicaiton Topical Twice daily For tinea, apply to groin rash after cleansing and throughouly drying. MIX WITH HYDROCORTISON E Can discontinue order 3 days after rash resolves. 1 applica stacy 2023 Active 2023 72510 53632 0 Twice daily Topica l False Humalog KwikPen (U-100) Insulin 100 unit/mL subcutaneou s 10/10/ 2024 10/10 /2024 Inactiv e 2023 64511 65123 9 MediHoney HCS 4 1/2in X 4 1/2in bandage Cleanse area with NSS, apply one medihoney hydrocolloid dressing, non adherent dressing, kerlix secure with paper tape daily. 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 08/25/2024 Active [...] weight Temperature SpO2 Blood Sugar Pulse Respirations 09917 8 67.00 mm[Hg] - Sitting 145.00 mm[Hg] - Sitting 98.50 Forehead Scan 96.00 % 81.00/ min 16.00/min 67907 004 11207 2 67.00 mm[Hg] - Sitting 145.00 mm[Hg] - Sitting 98.50 Tympanic 81.00/ min 16.00/min 16697 004 16354 5 56.00 mm[Hg] - Sitting 142.00 mm[Hg] - Sitting 136.40 NI 100.20 Tympanic 96.00 % 92.00/ min 18.00/min 80328 004 22600 6 99250 004 33217 4 143.00 mg/dL 90232 004 69619 0 97.80 Tympanic 96923 005 39164 7 60.00 mm[Hg] - Sitting 140.00 mm[Hg] - Sitting 98.00 Tympanic 84.00/ min 18.00/min 15360 005 34867 0 63.00 mm[Hg] - Sitting 141.00 mm[Hg] - Sitting 98.20 Tympanic 92.00 % 63.00/ min 16.00/min 43261 005 54394 8 69.00 mm[Hg] - Sitting 106.00 mm[Hg] - Sitting 97.20 Tympanic 94523 005 18340 7 69.00/ min 16.00/min 08719 005 48920 3 69.00 mm[Hg] - Sitting 106.00 mm[Hg] - Sitting 98.20 Tympanic 69.00/ min 16.00/min 45129 005 29753 1 367.00 mg/dL 11839 005 77520 2 97.20 Tympanic 33430 005 86706 4 97.20 Tympanic 02319 005 14065 0 69.00 mm[Hg] - Sitting 106.00 mm[Hg] - Sitting 69.00/ min 05867 005 63386 3 452.00 mg/dL 96507 005 94732 3 452.00 mg/dL 39582 005 70634 5 352.00 mg/dL 42776 005 18418 3 352.00 mg/dL 68835 005 24576 7 98.20 Tympanic 60079 005 22601 3 101.00 mg/dL 61032 005 8 101.00 mg/dL 62192 006 51112 4 66.00 mm[Hg] - Sitting 107.00 mm[Hg] - Sitting 98.00 Tympanic 66.00/ min 18.00/min 64940 006 97835 0 62.00 mm[Hg] - Sitting 162.00 mm[Hg] - Sitting 98.20 Tympanic 96.00 % 60.00/ min 16.00/min 02551 006 35395 4 62.00 mm[Hg] - Sitting 162.00 mm[Hg] - Sitting 98.00 Tympanic 70.00/ min 18.00/min 91962 006 29617 8 62.00 mm[Hg] - Sitting 162.00 mm[Hg] - Sitting 98.20 Tympanic 70.00/ min 18.00/min 81191 006 20651 2 66.00 mm[Hg] - Sitting 132.00 mm[Hg] - Sitting 98.60 Tympanic 74.00/ min 16.00/min 35991 006 29318 5 159.00 mg/dL 45231 006 93302 1 159.00 mg/dL 44847 006 32355 8 98.00 Tympanic 82681 006 98245 2 62.00 mm[Hg] - Sitting 162.00 mm[Hg] - Sitting 70.00/ min 69958 006 38562 7 264.00 mg/dL 39533 006 52623 7 264.00 mg/dL 92468 006 59910 4 196.00 mg/dL 75479 006 74396 3 98.20 Tympanic 32427 006 23232 6 271.00 mg/dL 79367 007 93155 3 97.20 Tympanic 79151 007 05846 2 63.00 mm[Hg] - Sitting 132.00 mm[Hg] - Sitting 98.50 Tympanic 94.00 % 66.00/ min 16.00/min 19741 007 52717 5 188.00 mg/dL 02177 007 03758 2 188.00 mg/dL 17195 007 71238 2 188.00 mg/dL 33658 007 03452 7 97.20 Tympanic 37576 007 66539 6 97.20 Tympanic 69304 007 52846 5 67.00 mm[Hg] - Sitting 152.00 mm[Hg] - Sitting 68.00/ min 36749 007 67585 0 141.00 mg/dL 01767 007 62589 3 141.00 mg/dL 58914 007 19802 1 366.00 mg/dL 11716 007 33910 7 366.00 mg/dL 72079 007 09668 7 98.00 Tympanic 24452 007 50351 6 324.00 mg/dL 43822 007 13333 3 98.00 Tympanic 78122 007 35431 7 324.00 mg/dL 45487 008 61219 0 98.00 Tympanic 26982 008 68999 2 97.90 Tympanic 70471 008 58748 0 98.20 Tympanic 18404 008 19033 0 73.00 mm[Hg] - Sitting 156.00 mm[Hg] - Sitting 98.60 Tympanic 99.00 % 66.00/ min 20.00/min 85842 008 35019 5 137.00 mg/dL 40420 008 70800 7 137.00 mg/dL 31239 008 45881 2 97.90 Tympanic 83682 008 29990 1 137.00 mg/dL 48081 008 83007 8 97.90 Tympanic 02638 008 41529 5 67.00 mm[Hg] - Sitting 124.00 /min 23835 008 58145 6 212.00 mg/dL 23340 008 87527 6 212.00 mg/dL 70342 008 25117 9 317.00 mg/dL 03278 008 53050 4 317.00 mg/dL 22075 008 64075 8 252.00 mg/dL 65149 008 00292 0 98.70 Tympanic 76056 008 65360 7 252.00 mg/dL 14054 008 66950 3 98.70 Tympanic 23833 009 26795 9 98.70 Tympanic 50559 009 03782 3 98.20 Tympanic 82327 009 17539 5 98.40 Tympanic 50467 009 23028 5 57.00 mm[Hg] - Sitting 129.00 mm[Hg] - Sitting 98.30 Tympanic 97.00 % 65.00/ min 18.00/min 17878 009 26001 1 255.00 mg/dL 47148 009 56583 4 255.00 mg/dL 89905 009 57421 5 98.20 Tympanic 27649 009 00996 0 255.00 mg/dL 70334 009 16571 0 98.20 Tympanic 77995 009 96783 4 63.00 mm[Hg] - Lying Down 102.00 mm[Hg] - Lying Down 58.00/ min 04097 009 08622 0 167.00 mg/dL 09553 009 37852 1 167.00 mg/dL 75451 009 47145 2 164.00 mg/dL 60991 009 63958 1 164.00 mg/dL 49304 009 95567 5 208.00 mg/dL 57800 010 47018 3 98.40 Tympanic 06618 010 89181 5 98.40 Tympanic 69760 010 66664 7 66 [place] [address] 010 25815 4 60.00 mm[Hg] - Sitting 143.00 mm[Hg] - Sitting 98.90 Tympanic 98.00 % 67.00/ min 18.00/min 89312 010 37202 2 214.00 mg/dL 20838 010 96282 0 214.00 mg/dL 62599 010 22455 7 214.00 mg/dL 35928 010 00746 6 64.00 mm[Hg] - Sitting 110.00 mm[Hg] - Sitting 72.00/ min 25685 010 16859 7 98.40 Tympanic 76325 010 89788 1 212.00 mg/dL 10528 010 95625 2 212.00 mg/dL 65203 010 65720 1 115.00 mg/dL 31837 010 97884 0 115.00 mg/dL 02628 010 80935 4 98.50 Tympanic 74271 010 96753 4 150.00 mg/dL 97958 010 33835 0 150.00 mg/dL 65620 011 61587 9 98.60 Tympanic 31648 011 11399 1 67.00 mm[Hg] - Sitting 144.00 mm[Hg] - Sitting 98.20 Tympanic 98.00 % 61.00/ min 18.00/min 07369 011 76778 7 290.00 mg/dL 05349 011 35145 2 290.00 mg/dL 51815 011 63796 2 290.00 mg/dL 11022 011 91682 7 54.00 mm[Hg] - Sitting 136.00 mm[Hg] - Sitting 101.00 /min 10535 011 63738 7 98.60 Tympanic 21864 011 33772 5 240.00 mg/dL 13670 011 11279 1 240.00 mg/dL 44387 011 99578 1 156.00 mg/dL 63856 011 01921 9 156.00 mg/dL 38915 011 77081 0 97.80 Tympanic 27760 011 12481 8 343.00 mg/dL 22743 012 60005 9 97.90 Tympanic 96235 012 35389 2 466.00 mg/dL 61309 012 73275 1 466.00 mg/dL 73637 012 42891 3 466.00 mg/dL 58995 012 46317 8 97.90 Tympanic 82672 012 81036 8 56.00 mm[Hg] - Sitting 96.00 mm[Hg] - Sitting 61.00/ min 26321 012 38370 7 350.00 mg/dL 31864 012 77957 5 350.00 mg/dL 23812 012 59080 6 111.00 mg/dL 43667 012 51617 0 111.00 mg/dL 19301 012 81454 5 98.40 Tympanic 47555 012 44441 6 114.00 mg/dL 70919 013 79494 4 74.00 mm[Hg] - Sitting 112.00 mm[Hg] - Sitting 98.40 Tympanic 70.00/ min 18.00/min 07496 013 97849 8 244.00 mg/dL 30119 013 33253 7 244.00 mg/dL 17454 013 79618 1 244.00 mg/dL 63539 013 82690 1 98.20 Tympanic 54157 013 07481 7 72.00 mm[Hg] - Sitting 119.00 mm[Hg] - Sitting 76.00/ min 80624 013 40962 7 253.00 mg/dL 84521 013 53751 4 253.00 mg/dL 31196 013 04898 9 156.00 mg/dL 33285 013 58466 5 156.00 mg/dL 75037 013 99358 4 97.90 Tympanic 13264 013 91484 5 189.00 mg/dL 60074 014 90110 9 98.10 Tympanic 27780 014 19292 0 61.00 mm[Hg] - Sitting 139.00 mm[Hg] - Sitting 98.20 Forehead Scan 99.00 % 66.00/ min 18.00/min 67670 014 79248 3 169.00 mg/dL 07070 014 23346 3 98.10 Tympanic 09229 014 68925 3 75.00 mm[Hg] - Sitting 121.00 mm[Hg] - Sitting 71.00/ min 52734 014 07127 9 221.00 mg/dL 41321 014 56631 9 62.00 mg/dL 77570 014 55087 5 62.00 mg/dL 89270 014 55844 8 156.00 mg/dL 70001 014 25069 6 98.10 Tympanic 73655 014 01259 7 156.00 mg/dL 83334 015 70304 4 59573 015 41830 7 62.00 mm[Hg] - Sitting 142.00 mm[Hg] - Sitting 98.20 Tympanic 99.00 % 67.00/ min 18.00/min 33523 015 85038 9 120.00 mg/dL 74825 015 49882 7 98.00 Tympanic 67185 015 73548 2 82.00 mm[Hg] - Sitting 119.00 /min 06569 015 49406 9 110.00 mg/dL 80430 015 35544 6 104.00 mg/dL 28882 015 61218 0 100.00 mg/dL 70023 015 69506 2 98.10 Tympanic 24121 015 56438 6 100.00 mg/dL 55938 016 01600 2 67.00 mm[Hg] - Sitting 147.00 mm[Hg] - Sitting 99.00 Tympanic 99.00 % 78.00/ min 20.00/min 86539 016 96363 5 158.00 mg/dL 74864 016 76871 1 158.00 mg/dL 65163 016 72125 2 158.00 mg/dL 82348 016 54705 0 66.00 mm[Hg] - Sitting 121.00 mm[Hg] - Sitting 74.00/ min 90657 016 07408 1 97.00 mg/dL 01359 016 26728 5 97.00 mg/dL 84027 016 73417 4 78.00 mg/dL 47888 016 65839 6 78.00 mg/dL 92602 016 18489 5 248.00 mg/dL 89552 016 72466 8 248.00 mg/dL 10888 017 66814 3 54.00 mm[Hg] - Sitting 142.00 mm[Hg] - Sitting 98.30 Tympanic 99.00 % 76.00/ min 18.00/min 76634 017 70077 4 267.00 mg/dL 25818 017 39232 6 73.00 mm[Hg] - Sitting 109.00 mm[Hg] - Sitting 70.00/ min 70813 017 13066 1 184.00 mg/dL 17097 017 53839 5 184.00 mg/dL 93803 017 14890 9 248.00 mg/dL 28931 017 84683 8 299.00 mg/dL 86011 017 18493 3 299.00 mg/dL 75596 018 76609 7 50.00 mm[Hg] - Sitting 125.00 mm[Hg] - Sitting 98.30 Tympanic 98.00 % 76.00/ min 16.00/min 11954 018 93015 3 168.00 mg/dL 30948 018 83169 0 75.00 mm[Hg] - Sitting 121.00 mm[Hg] - Sitting 70.00/ min 19178 018 90426 7 264.00 mg/dL 76838 018 11221 6 132.00 mg/dL 34522 018 62237 6 154.00 mg/dL 59709 018 89251 6 154.00 mg/dL 53561 019 63149 4 63.00 mm[Hg] - Sitting 147.00 mm[Hg] - Sitting 98.50 Tympanic 99.00 % 69.00/ min 18.00/min 14278 019 59323 9 159.00 mg/dL 82979 019 76224 8 73.00 mm[Hg] - Sitting 110.00 mm[Hg] - Sitting 72.00/ min 37116 019 47224 4 191.00 mg/dL 68087 019 05891 8 70.00 mg/dL 54536 019 36985 4 70.00 mg/dL 57257 019 22491 6 198.00 mg/dL 04209 019 68953 0 198.00 mg/dL 05721 020 06013 2 59.00 mm[Hg] - Sitting 131.00 mm[Hg] - Sitting 98.90 Tympanic 99.00 % 69.00/ min 18.00/min 62282 020 07924 7 299.00 mg/dL 43431 020 72618 0 62.00 mm[Hg] - Sitting 132.00 mm[Hg] - Sitting 68.00/ min 19203 020 11342 3 299.00 mg/dL 60917 020 11725 3 299.00 mg/dL 44066 020 09477 9 220.00 mg/dL 38148 020 51598 1 220.00 mg/dL 74518 020 98440 1 270.00 mg/dL 06539 020 93024 4 270.00 mg/dL 44413 020 28997 9 143.00 mg/dL 79967 020 67510 4 143.00 mg/dL 35325 021 20882 0 59.00 mm[Hg] - Sitting 121.00 mm[Hg] - Sitting 98.40 Forehead Scan 98.00 % 70.00/ min 16.00/min 82320 021 74221 0 140.00 mg/dL 60940 021 76309 0 67.00 mm[Hg] - Sitting 130.00 mm[Hg] - Sitting 68.00/ min 64482 021 63931 8 140.00 mg/dL 44614 021 96946 6 140.00 mg/dL 15342 021 90858 8 156.00 mg/dL 64785 021 59821 1 156.00 mg/dL 35191 021 49334 5 146.00 mg/dL 39118 021 73592 4 146.00 mg/dL 36341 021 72938 5 183.00 mg/dL 21744 021 04090 2 183.00 mg/dL 38523 022 89150 3 Immunizations Vaccine Date Status COVID-19 09/20/2023 Completed Other 10/08/2023 Completed Shingles 05/27/2011 Completed Tetanus 04/13/2022 Completed TDaP 04/13/2022 Completed Shingles 2 10/05/2018 Completed
--- OUTSIDE RECORDS SUMMARY | 2024-10-03 11:07 | External Medical Summary | Continuity Of Care Document ---
Author Name Unknown Address [address] [address] Organization [facility] () Care Team Providers Care Optometrist President/Practice Owner Name Role Phone DO Machado Amy Primary Care Provider [phone] Allergies Allergy Reaction Start Date End Date [...] 3 0.1 mL 08/29 Inactiv e 2023 88253 18733 0 1 time Intrad ermal False Tubersol 5 tub. unit/0.1 mL intradermal injection solution [Tuberculin PPD] 0.1mL Intradermal 1 time For PPD 2nd Step Give 2nd Step PPD Day 1 and Read results Day 3 (schedule 7 days after 1st READ) 0.1mL 09/08 Inactiv e 2023 32803 58724 0 1 time Intrad ermal False Humalog [...] order For Diabetes 08/25 Inactiv e 2023 26724 66391 9 4 times a day Subcut aneous False Aspirin 325 mg tablet [generic] 325 By Mouth Twice daily For Anticoagulati on 325 09/25 Active 2023 07948 17747 1 Twice daily By Mouth False Ferrous sulfate 325 mg (65 mg iron) tablet [generic] 325 By Mouth Once daily For anemia 325 2023 Active 2023 44262 46147 5 Once daily By Mouth False Linezolid 600 mg tablet [generic] 600 mg By Mouth Every 12 hours For MRSA INFECTION L BKA 600 mg 08/25 Inactiv e 2023 93580 42960 1 Every 12 hours By Mouth False Cefpodoxime 200 mg tablet [generic] 400 mg By Mouth Twice daily For MRSA INFECTION L BKA 400 mg 08/25 Inactiv e 2023 29275 12847 0 Twice daily By Mouth False Coenzyme Q10 100 mg tablet [generic] 100 mg By Mouth Once daily For SUPP 100 mg 2023 Active 2023 17358 05894 0 Once daily By Mouth False Levothyroxi ne 50 mcg tablet [generic] 50mcg By Mouth Once daily For hypothyroidis m 50mcg 2023 Active 2023 50395 82050 0 Once daily By Mouth False One A Day Men Complete 240 mcg-25 mcg-300 mcg tablet 1 tab By Mouth Once daily For supplement 1 tab 2023 Active 2023 71703 53096 1 Once daily By Mouth False Cholecalcif adalberto (vitamin D3) 50 mcg (2,000 unit) tablet [generic] 1 TAB By Mouth Once daily For SUPP 1 TAB 2023 Active 2023 53298 79704 1 Once daily By Mouth False Cetirizine 10 mg tablet [generic] 1 TAB By Mouth At bedtime For Allergies 1 TAB 2023 Active 2023 05896 60146 0 At bedtime By Mouth False Timolol maleate 0.25 % eye drops [generic] 1 drop Both Eyes Twice daily For glaucoma 1 drop 2023 0000 0000 Active 2023 56433 43671 5 Twice daily Both Eyes False Alendronate 35 mg tablet [generic] 35mg By Mouth Every week For SIADH 35mg 08/31 Inactiv e 2023 77898 84787 5 Every week By Mouth False Lantus Solostar U-100 Insulin 100 unit/mL (3 mL) subcutaneou s pen 18 units Subcutaneous Every morning For DIABETES 18 units 08/25 Inactiv e 2023 00923 22545 0 Every morning Subcut aneous False Lantus Solostar U-100 Insulin 100 unit/mL (3 mL) subcutaneou s pen 18 units Subcutaneous Every morning For DIABETES 18 units 2023 Active 2023 85970 48750 0 Every morning Subcut aneous False Linezolid 600 mg tablet [generic] 600 mg By Mouth Every 12 hours For MRSA INFECTION L BKA 600 mg 08/28 Inactiv e 2023 45931 64318 1 Every 12 hours By Mouth False [...] order For Diabetes 08/31 Inactiv e 2023 23558 67370 9 4 times a day Subcut aneous False Cefpodoxime 200 mg tablet [generic] 400 mg By Mouth Twice daily For MRSA INFECTION L BKA 400 mg 08/28 Inactiv e 2023 96217 60661 0 Twice daily By Mouth False Brimonidine 0.1 % eye drops [generic] 1 drop Both Eyes Twice daily For glaucoma 1 drop 2023 Active 2023 59718 60560 0 Twice daily Both Eyes False Metoprolol succinate ER 50 mg tablet,exte nded release 24 hr [generic] 50 mg By Mouth Once daily HOLD FOR SBP <100, or pulse <60 For HTN 50 mg 2023 Active 2023 67494 96056 1 Once daily By Mouth False Amlodipine 2.5 mg tablet [generic] 2.5 mg By Mouth Once daily For HTN 2.5 mg 2023 Active 2023 30847 43380 5 Once daily By Mouth False Docusate sodium 100 mg capsule [generic] 100mg By Mouth Twice daily as needed For constipation HOLD FOR LOOSE STOOLS 100mg 2023 Active 2023 84138 44533 1 Twice daily as needed By Mouth False Atorvastati n 40 mg tablet [generic] 40mg By Mouth Once daily For HDL 40mg 08/26 Inactiv e 2023 49099 22151 5 Once daily By Mouth False Tylenol 325 mg tablet 2 tabs By Mouth Every 4 hours as needed For Pain DO NOT EXCEED 3000 MG APAP/24 Hours 2 tabs 2023 Active 2023 48167 40293 0 Every 4 hours as needed By Mouth False Tylenol 325 mg tablet 2 tabs By Mouth Every 4 hours as needed For Fever >100 DO NOT EXCEED 3000 MG APAP/24 Hours 2 tabs 2023 Active 2023 68298 13023 0 Every 4 hours as needed By Mouth False Dulcolax (bisacodyl) 10 mg rectal suppository One Suppository per rectum PRN if Milk of Magnisia ineffective. Give on day 5 of no BM 1 sup 2023 Active 2023 14535 56343 1 Daily as needed Rectal False Fleet Enema 19 gram-7 gram/118 mL Administer per rectum PRN one time if dulcolax suppository not effective. Give on day 6 of no BM 1 2023 Active 2023 40748 10990 6 Daily as needed Rectal False Dextrose 50 % in water (D50W) intravenous solution [generic] Dextrose 50% evonne 20-50 ml (slow push) Intravenous if Glucagon not effective after 15 minutes. CALL 911 for ED Evaluation. 50% evonne 2023 Active 2023 71573 23094 9 Intrav enous False Glucagon (HCl) Emergency Kit 1 mg solution for injection Administer Glucagon 1 mg Intramuscular if 15 minutes after GLucose Gel is administered Glucose remains less than 70 1 mg 2023 Active 2023 36326 78980 2 Intram uscula r False Glucose Gel 40 % oral gel [Dextrose] PRN If resident is unable to swallow (with or without symptoms) and Glucose results less than 70 give GLucose 40% Gel 1 tube orally - Recheck Glucose 15 minutes after administratio n. 1 tube 2023 Active 2023 77145 48818 8 By Mouth False Milk of Magnesia 400 mg/5 mL oral suspension [Magnesium hydroxide] PRN 30ml By Mouth Daily as needed for constipation one time daily if no BM, on day 4 of no BM (PRN refer to instructions) For Constipation 30 mL 2023 Active 2023 03511 73697 6 Daily as needed By Mouth False Atorvastati n 40 mg tablet [generic] 08/26 Inactiv e 2023 31388 22969 5 Atorvastati n 40 mg tablet [generic] 40mg By Mouth Once daily For HDL 40mg 2023 Active 2023 60260 46878 5 Once daily By Mouth False Insulin aspart (U-100) 100 unit/mL (3 mL) subcutaneou s pen [generic] 15 units Subcutaneous 1 time For dm 15 units 08/26 Inactiv e 2023 36537 30606 5 1 time Subcut aneous False Humalog KwikPen (U-100) Insulin 100 unit/mL subcutaneou s 15 units Subcutaneous 1 time For dm 15 units 08/27 Inactiv e 2023 71138 43895 9 1 time Subcut aneous False Linezolid 600 mg tablet [generic] 600 mg By Mouth Every 12 hours For MRSA INFECTION L BKA 600 mg 09/06 Inactiv e 2023 93074 18283 1 Every 12 hours By Mouth False Cefpodoxime 200 mg tablet [generic] 400 mg By Mouth Twice daily For MRSA INFECTION L BKA 400 mg 08/31 Inactiv e 2023 93853 90884 0 Twice daily By Mouth False Senna 8.6 mg tablet 8.6 mg By Mouth Once daily For Constipation 8.6 mg 09/07 Inactiv e 2023 60695 36189 1 Once daily By Mouth False Humalog [...] abnormalities . Per Carb 2023 Active 2023 16899 30091 9 4 times a day Subcut aneous False Alendronate 35 mg tablet [generic] 08/31 Inactiv e 2023 20087 88158 5 Alendronate 35 mg tablet [generic] 35mg By Mouth Every week For Osteoporosis 35mg 2023 Active 2023 92355 95533 5 Every week By Mouth False ProSource 10 gram-100 kcal/30 mL oral liquid 30 ml By Mouth Once daily For wound healing 30 ml 2023 Active 2023 57699 50267 2 Once daily By Mouth False Clotrimazol e 1 % topical cream [generic] 1 applicaiton Topical Twice daily For tinea, apply to groin rash after cleansing and throughouly drying. Can discontinue order 3 days after rash resolves. 1 applica stacy 09/08 Inactiv e 2023 48254 19672 0 Twice daily Topica l False MAGIC MIX 1:1:1:1 : ZINC OXIDE EXTERNAL OINTMENT 40%; HYDROCOTISO NE EXTERNAL CREAM 1%; NYSTATIN EXTERNAL CREAM 507587D/GM; SILVADENE CREAM 1% Every shift Apply topically to MASD area on coccyx/buttoc ks each shift and as needed for incontinence care For MASD on coccyx layer 2023 Active 2023 Every shift Topica l False Problems Code Description Start Date End Date Status D64.9 Anemia, unspecified 08/25/2024 Activ e I25.10 Atherosclerotic hear t disease of [place] coronary artery without angina pectoris 08/25/2024 Active [...] weight Temperature SpO2 Blood Sugar Pulse Respirations 19922 8 67.00 mm[Hg] - Sitting 145.00 mm[Hg] - Sitting 98.50 Forehead Scan 96.00 % 81.00/ min 16.00/min 77293 004 51865 2 67.00 mm[Hg] - Sitting 145.00 mm[Hg] - Sitting 98.50 Tympanic 81.00/ min 16.00/min 11060 004 04669 5 56.00 mm[Hg] - Sitting 142.00 mm[Hg] - Sitting 136.40 NI 100.20 Tympanic 96.00 % 92.00/ min 18.00/min 24024 004 66614 6 82056 004 05718 4 143.00 mg/dL 004 66310 0 97.80 Tympanic 97241 005 42993 7 60.00 mm[Hg] - Sitting 140.00 mm[Hg] - Sitting 98.00 Tympanic 84.00/ min 18.00/min 85610 005 29127 0 63.00 mm[Hg] - Sitting 141.00 mm[Hg] - Sitting 98.20 Tympanic 92.00 % 63.00/ min 16.00/min 63950 005 96788 8 69.00 mm[Hg] - Sitting 106.00 mm[Hg] - Sitting 97.20 Tympanic 40315 005 34656 7 69.00/ min 16.00/min 62073 005 59715 3 69.00 mm[Hg] - Sitting 106.00 mm[Hg] - Sitting 98.20 Tympanic 69.00/ min 16.00/min 52723 005 63937 1 367.00 mg/dL 53804 005 25957 2 97.20 Tympanic 22515 005 07863 4 97.20 Tympanic 68895 005 06546 0 69.00 mm[Hg] - Sitting 106.00 mm[Hg] - Sitting 69.00/ min 80705 005 44258 3 452.00 mg/dL 71436 005 17441 3 452.00 mg/dL 05731 005 32965 5 352.00 mg/dL 76494 005 24795 3 352.00 mg/dL 83559 005 33068 7 98.20 Tympanic 88207 005 63828 3 101.00 mg/dL 64472 005 11438 8 101.00 mg/dL 26518 006 82646 4 66.00 mm[Hg] - Sitting 107.00 mm[Hg] - Sitting 98.00 Tympanic 66.00/ min 18.00/min 57128 006 96476 0 62.00 mm[Hg] - Sitting 162.00 mm[Hg] - Sitting 98.20 Tympanic 96.00 % 60.00/ min 16.00/min 37812 006 41840 4 62.00 mm[Hg] - Sitting 162.00 mm[Hg] - Sitting 98.00 Tympanic 70.00/ min 18.00/min 22872 006 48123 8 62.00 mm[Hg] - Sitting 162.00 mm[Hg] - Sitting 98.20 Tympanic 70.00/ min 18.00/min 94214 006 47825 2 66.00 mm[Hg] - Sitting 132.00 mm[Hg] - Sitting 98.60 Tympanic 74.00/ min 16.00/min 51807 006 61809 5 159.00 mg/dL 63924 006 41200 1 159.00 mg/dL 80396 006 19536 8 98.00 Tympanic 62711 006 23700 2 62.00 mm[Hg] - Sitting 162.00 mm[Hg] - Sitting 70.00/ min 20709 006 37422 7 264.00 mg/dL 21421 006 79114 7 264.00 mg/dL 35606 006 27360 4 196.00 mg/dL 05380 006 36031 3 98.20 Tympanic 05166 006 93129 6 271.00 mg/dL 31815 007 08376 3 97.20 Tympanic 49264 007 86995 2 63.00 mm[Hg] - Sitting 132.00 mm[Hg] - Sitting 98.50 Tympanic 94.00 % 66.00/ min 16.00/min 28001 007 62350 5 188.00 mg/dL 00713 007 79411 2 188.00 mg/dL 64033 007 62225 2 188.00 mg/dL 23915 007 05776 7 97.20 Tympanic 92218 007 74760 6 97.20 Tympanic 93837 007 47505 5 67.00 mm[Hg] - Sitting 152.00 mm[Hg] - Sitting 68.00/ min 84993 007 41514 0 141.00 mg/dL 50201 007 21843 3 141.00 mg/dL 62747 007 43274 1 366.00 mg/dL 57024 007 78959 7 366.00 mg/dL 76795 007 20041 7 98.00 Tympanic 65316 007 14687 6 324.00 mg/dL 77766 007 33997 3 98.00 Tympanic 08815 007 61799 7 324.00 mg/dL 68207 008 31606 0 98.00 Tympanic 23010 008 02248 2 97.90 Tympanic 17165 008 97802 0 98.20 Tympanic 75455 008 26862 0 73.00 mm[Hg] - Sitting 156.00 mm[Hg] - Sitting 98.60 Tympanic 99.00 % 66.00/ min 20.00/min 75065 008 73531 5 137.00 mg/dL 22016 008 73248 7 137.00 mg/dL 04231 008 82619 2 97.90 Tympanic 62318 008 97669 1 137.00 mg/dL 17689 008 43918 8 97.90 Tympanic 64135 008 57033 5 67.00 mm[Hg] - Sitting 124.00 /min 19643 008 93702 6 212.00 mg/dL 84845 008 58354 6 212.00 mg/dL 70175 008 25646 9 317.00 mg/dL 96021 008 89988 4 317.00 mg/dL 82783 008 07517 8 252.00 mg/dL 29361 008 84964 0 98.70 Tympanic 94143 008 15960 7 252.00 mg/dL 03014 008 36336 3 98.70 Tympanic 26534 009 29658 9 98.70 Tympanic 67645 009 55555 3 98.20 Tympanic 57330 009 77899 5 98.40 Tympanic 19325 009 08346 5 57.00 mm[Hg] - Sitting 129.00 mm[Hg] - Sitting 98.30 Tympanic 97.00 % 65.00/ min 18.00/min 78002 009 87596 1 255.00 mg/dL 51898 009 57714 4 255.00 mg/dL 72348 009 53309 5 98.20 Tympanic 29252 009 84388 0 255.00 mg/dL 85758 009 17518 0 98.20 Tympanic 62069 009 82444 4 63.00 mm[Hg] - Lying Down 102.00 mm[Hg] - Lying Down 58.00/ min 85609 009 03523 0 167.00 mg/dL 03148 009 97817 1 167.00 mg/dL 92274 009 73981 2 164.00 mg/dL 58122 009 55142 1 164.00 mg/dL 39277 009 82895 5 208.00 mg/dL 65012 010 76843 3 98.40 Tympanic 97278 010 34336 5 98.40 Tympanic 61982 010 17053 7 66 NI 83495 010 81611 4 60.00 mm[Hg] - Sitting 143.00 mm[Hg] - Sitting 98.90 Tympanic 98.00 % 67.00/ min 18.00/min 69316 010 16702 2 214.00 mg/dL 79443 010 45020 0 214.00 mg/dL 49168 010 04342 7 214.00 mg/dL 32351 010 28899 6 64.00 mm[Hg] - Sitting 110.00 mm[Hg] - Sitting 72.00/ min 18527 010 33502 7 98.40 Tympanic 57324 010 32472 1 212.00 mg/dL 06864 010 07680 2 212.00 mg/dL 14941 010 35630 1 115.00 mg/dL 21033 010 09733 0 115.00 mg/dL 79461 010 63066 4 98.50 Tympanic 71814 010 41760 4 150.00 mg/dL 79735 010 10819 0 150.00 mg/dL 07128 011 92129 9 98.60 Tympanic 46899 011 54694 1 67.00 mm[Hg] - Sitting 144.00 mm[Hg] - Sitting 98.20 Tympanic 98.00 % 61.00/ min 18.00/min 13769 011 19836 7 290.00 mg/dL 42952 011 47084 2 290.00 mg/dL 36964 011 72235 2 290.00 mg/dL 29473 011 96573 7 54.00 mm[Hg] - Sitting 136.00 mm[Hg] - Sitting 101.00 /min 89022 011 12337 7 98.60 Tympanic 92285 011 94591 5 240.00 mg/dL 55997 011 19278 1 240.00 mg/dL 08585 011 99451 1 156.00 mg/dL 57517 011 33832 9 156.00 mg/dL 34562 011 39070 0 97.80 Tympanic 08049 011 73588 8 343.00 mg/dL 25162 012 99666 9 97.90 Tympanic 83744 012 77887 2 466.00 mg/dL 39817 012 63125 1 466.00 mg/dL 04631 012 76224 3 466.00 mg/dL 34515 012 03400 8 97.90 Tympanic 34269 012 91858 8 56.00 mm[Hg] - Sitting 96.00 mm[Hg] - Sitting 61.00/ min 32265 012 20235 7 350.00 mg/dL 07876 012 67109 5 350.00 mg/dL 01046 012 58884 6 111.00 mg/dL 77685 012 24283 0 111.00 mg/dL 73330 012 20751 5 98.40 Tympanic 25245 012 57015 6 114.00 mg/dL 89265 013 88336 4 74.00 mm[Hg] - Sitting 112.00 mm[Hg] - Sitting 98.40 Tympanic 70.00/ min 18.00/min 05082 013 50163 8 244.00 mg/dL 35825 013 66837 7 244.00 mg/dL 35713 013 34845 1 244.00 mg/dL 70913 013 52440 1 98.20 Tympanic 49145 013 38613 7 72.00 mm[Hg] - Sitting 119.00 mm[Hg] - Sitting 76.00/ min 54809 013 74422 7 253.00 mg/dL 18357 013 59368 4 253.00 mg/dL 20027 013 23908 9 156.00 mg/dL 45055 013 78691 5 156.00 mg/dL 58914 013 35852 4 97.90 Tympanic 63382 013 08934 5 189.00 mg/dL 48913 014 78988 9 98.10 Tympanic 70557 014 35536 0 61.00 mm[Hg] - Sitting 139.00 mm[Hg] - Sitting 98.20 Forehead Scan 99.00 % 66.00/ min 18.00/min 28321 014 93473 3 169.00 mg/dL 32276 014 05590 3 98.10 Tympanic 34325 014 94315 3 75.00 mm[Hg] - Sitting 121.00 mm[Hg] - Sitting 71.00/ min 82088 014 21572 9 221.00 mg/dL 26414 014 66503 9 62.00 mg/dL 46292 014 25897 5 62.00 mg/dL 37339 014 43950 8 156.00 mg/dL 29762 014 46095 6 98.10 Tympanic 99734 014 75419 7 156.00 mg/dL 33774 015 08859 4 09733 015 25599 7 62.00 mm[Hg] - Sitting 142.00 mm[Hg] - Sitting 98.20 Tympanic 99.00 % 67.00/ min 18.00/min 43828 015 27051 9 120.00 mg/dL 73376 015 15686 7 98.00 Tympanic 95178 015 67199 2 82.00 mm[Hg] - Sitting 119.00 /min 43195 015 21090 9 110.00 mg/dL 46870 015 72680 6 104.00 mg/dL 98870 015 11979 0 100.00 mg/dL 20300 015 67789 2 98.10 Tympanic 22913 015 17821 6 100.00 mg/dL 95967 016 25838 2 67.00 mm[Hg] - Sitting 147.00 mm[Hg] - Sitting 99.00 Tympanic 99.00 % 78.00/ min 20.00/min 93398 016 78621 5 158.00 mg/dL 94512 016 47952 1 158.00 mg/dL 72955 016 94323 2 158.00 mg/dL 13026 016 80825 0 66.00 mm[Hg] - Sitting 121.00 mm[Hg] - Sitting 74.00/ min 07549 016 09564 1 97.00 mg/dL 80111 016 85188 5 97.00 mg/dL 60889 016 24457 4 78.00 mg/dL 91287 016 32886 6 78.00 mg/dL 02330 016 94909 5 248.00 mg/dL 44687 016 44783 8 248.00 mg/dL 33984 017 92661 3 54.00 mm[Hg] - Sitting 142.00 mm[Hg] - Sitting 98.30 Tympanic 99.00 % 76.00/ min 18.00/min 46740 017 25491 4 267.00 mg/dL 04447 017 55754 6 73.00 mm[Hg] - Sitting 109.00 mm[Hg] - Sitting 70.00/ min 02956 017 45550 1 184.00 mg/dL 30775 017 85093 5 184.00 mg/dL 03431 017 15353 9 248.00 mg/dL 50735 017 01235 8 299.00 mg/dL 80582 017 41382 3 299.00 mg/dL 13110 018 92210 7 50.00 mm[Hg] - Sitting 125.00 mm[Hg] - Sitting 98.30 Tympanic 98.00 % 76.00/ min 16.00/min 58657 018 92770 3 168.00 mg/dL 84719 018 59054 0 75.00 mm[Hg] - Sitting 121.00 mm[Hg] - Sitting 70.00/ min 51982 018 47029 7 264.00 mg/dL 96443 018 11599 6 132.00 mg/dL 68351 018 19248 6 154.00 mg/dL 04560 018 61521 6 154.00 mg/dL 77847 019 34602 4 63.00 mm[Hg] - Sitting 147.00 mm[Hg] - Sitting 98.50 Tympanic 99.00 % 69.00/ min 18.00/min 97902 019 46068 9 159.00 mg/dL 98897 019 13304 8 73.00 mm[Hg] - Sitting 110.00 mm[Hg] - Sitting 72.00/ min 68824 019 23454 4 191.00 mg/dL 27762 019 96339 8 70.00 mg/dL 07936 019 68934 4 70.00 mg/dL 45744 019 26694 6 198.00 mg/dL 23305 019 62770 0 198.00 mg/dL 53230 020 85393 2 59.00 mm[Hg] - Sitting 131.00 mm[Hg] - Sitting 98.90 Tympanic 99.00 % 69.00/ min 18.00/min 20336 020 12432 7 299.00 mg/dL 96349 020 39633 0 62.00 mm[Hg] - Sitting 132.00 mm[Hg] - Sitting 68.00/ min 02804 020 81349 3 299.00 mg/dL 58499 020 15652 3 299.00 mg/dL 38495 020 36839 9 220.00 mg/dL 46402 020 30358 1 220.00 mg/dL 28986 020 95061 1 270.00 mg/dL 51322 020 11321 4 270.00 mg/dL 28044 020 60635 9 143.00 mg/dL 20357 020 55390 4 143.00 mg/dL 78454 021 47332 0 59.00 mm[Hg] - Sitting 121.00 mm[Hg] - Sitting 98.40 Forehead Scan 98.00 % 70.00/ min 16.00/min 98568 021 78896 0 140.00 mg/dL 73713 021 80236 0 67.00 mm[Hg] - Sitting 130.00 mm[Hg] - Sitting 68.00/ min 86890 021 02949 8 140.00 mg/dL 72853 021 18484 6 140.00 mg/dL 30752 021 37976 8 156.00 mg/dL 78597 021 04985 1 156.00 mg/dL 54459 021 04549 5 146.00 mg/dL 21680 021 22706 4 146.00 mg/dL 36408 021 41535 5 183.00 mg/dL 88427 021 28993 2 183.00 mg/dL Immunizations Vaccine Date Status COVID-19 09/20/2023 Completed Other 10/08/2023 Completed Shingles 05/27/2011 Completed Tetanus 04/13/2022 Completed TDaP 04/13/2022 Completed Shingles 2 10/05/2018 Completed
--- OUTSIDE RECORDS SUMMARY | 2024-10-03 11:08 | External Medical Summary | Continuity Of Care Document ---
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 unit/0.1 mL intradermal injection solution [Tuberculin PPD] 0.1mL Intradermal 1 time For PPD 2nd Step Give 2nd Step PPD Day 1 and Read results Day 3 (schedule 7 days after 1st READ) 0.1mL 09/08 Inactiv e 2023 79722 50532 0 1 time Intrad ermal False Humalog [...] order For Diabetes 08/25 Inactiv e 2023 75639 78425 9 4 times a day Subcut aneous False Aspirin 325 mg tablet [generic] 325 By Mouth Twice daily For Anticoagulati on 325 09/25 Active 2023 22862 25239 1 Twice daily By Mouth False Ferrous sulfate 325 mg (65 mg iron) tablet [generic] 325 By Mouth Once daily For anemia 325 2023 Active 2023 66326 40867 5 Once daily By Mouth False Linezolid 600 mg tablet [generic] 600 mg By Mouth Every 12 hours For MRSA INFECTION L BKA 600 mg 08/25 Inactiv e 2023 25181 33748 1 Every 12 hours By Mouth False Cefpodoxime 200 mg tablet [generic] 400 mg By Mouth Twice daily For MRSA INFECTION L BKA 400 mg 08/25 Inactiv e 2023 11719 70999 0 Twice daily By Mouth False Coenzyme Q10 100 mg tablet [generic] 100 mg By Mouth Once daily For SUPP 100 mg 2023 Active 2023 50902 97131 0 Once daily By Mouth False Levothyroxi ne 50 mcg tablet [generic] 50mcg By Mouth Once daily For hypothyroidis m 50mcg 2023 Active 2023 93793 10028 0 Once daily By Mouth False One A Day Men Complete 240 mcg-25 mcg-300 mcg tablet 1 tab By Mouth Once daily For supplement 1 tab 2023 Active 2023 61067 30712 1 Once daily By Mouth False Cholecalcif adalberto (vitamin D3) 50 mcg (2,000 unit) tablet [generic] 1 TAB By Mouth Once daily For SUPP 1 TAB 2023 Active 2023 21319 14118 1 Once daily By Mouth False Cetirizine 10 mg tablet [generic] 1 TAB By Mouth At bedtime For Allergies 1 TAB 2023 Active 2023 27588 27311 0 At bedtime By Mouth False Timolol maleate 0.25 % eye drops [generic] 1 drop Both Eyes Twice daily For glaucoma 1 drop 2023 0000 0000 Active 2023 37575 53966 5 Twice daily Both Eyes False Alendronate 35 mg tablet [generic] 35mg By Mouth Every week For SIADH 35mg 08/31 Inactiv e 2023 85960 21140 5 Every week By Mouth False Lantus Solostar U-100 Insulin 100 unit/mL (3 mL) subcutaneou s pen 18 units Subcutaneous Every morning For DIABETES 18 units 08/25 Inactiv e 2023 81053 89214 0 Every morning Subcut aneous False Lantus Solostar U-100 Insulin 100 unit/mL (3 mL) subcutaneou s pen 18 units Subcutaneous Every morning For DIABETES 18 units 2023 Active 2023 01198 82179 0 Every morning Subcut aneous False Linezolid 600 mg tablet [generic] 600 mg By Mouth Every 12 hours For MRSA INFECTION L BKA 600 mg 08/28 Inactiv e 2023 98557 95999 1 Every 12 hours By Mouth False [...] order For Diabetes 08/31 Inactiv e 2023 76707 03723 9 4 times a day Subcut aneous False Cefpodoxime 200 mg tablet [generic] 400 mg By Mouth Twice daily For MRSA INFECTION L BKA 400 mg 08/28 Inactiv e 2023 87868 57330 0 Twice daily By Mouth False Brimonidine 0.1 % eye drops [generic] 1 drop Both Eyes Twice daily For glaucoma 1 drop 2023 Active 2023 92771 52618 0 Twice daily Both Eyes False Metoprolol succinate ER 50 mg tablet,exte nded release 24 hr [generic] 50 mg By Mouth Once daily HOLD FOR SBP <100, or pulse <60 For HTN 50 mg 2023 Active 2023 57813 77513 1 Once daily By Mouth False Amlodipine 2.5 mg tablet [generic] 2.5 mg By Mouth Once daily For HTN 2.5 mg 2023 Active 2023 76808 82430 5 Once daily By Mouth False Docusate sodium 100 mg capsule [generic] 100mg By Mouth Twice daily as needed For constipation HOLD FOR LOOSE STOOLS 100mg 2023 Active 2023 16907 95410 1 Twice daily as needed By Mouth False Atorvastati n 40 mg tablet [generic] 40mg By Mouth Once daily For HDL 40mg 08/26 Inactiv e 2023 42065 11799 5 Once daily By Mouth False Tylenol 325 mg tablet 2 tabs By Mouth Every 4 hours as needed For Pain DO NOT EXCEED 3000 MG APAP/24 Hours 2 tabs 2023 Active 2023 42014 91934 0 Every 4 hours as needed By Mouth False Tylenol 325 mg tablet 2 tabs By Mouth Every 4 hours as needed For Fever >100 DO NOT EXCEED 3000 MG APAP/24 Hours 2 tabs 2023 Active 2023 93822 57079 0 Every 4 hours as needed By Mouth False Dulcolax (bisacodyl) 10 mg rectal suppository One Suppository per rectum PRN if Milk of Magnisia ineffective. Give on day 5 of no BM 1 sup 2023 Active 2023 70966 22511 1 Daily as needed Rectal False Fleet Enema 19 gram-7 gram/118 mL Administer per rectum PRN one time if dulcolax suppository not effective. Give on day 6 of no BM 1 2023 Active 2023 95978 17631 6 Daily as needed Rectal False Dextrose 50 % in water (D50W) intravenous solution [generic] Dextrose 50% evonne 20-50 ml (slow push) Intravenous if Glucagon not effective after 15 minutes. CALL 911 for ED Evaluation. 50% evonne 2023 Active 2023 37359 48061 9 Intrav enous False Glucagon (HCl) Emergency Kit 1 mg solution for injection Administer Glucagon 1 mg Intramuscular if 15 minutes after GLucose Gel is administered Glucose remains less than 70 1 mg 2023 Active 2023 90348 57579 2 Intram uscula r False Glucose Gel 40 % oral gel [Dextrose] PRN If resident is unable to swallow (with or without symptoms) and Glucose results less than 70 give GLucose 40% Gel 1 tube orally - Recheck Glucose 15 minutes after administratio n. 1 tube 2023 Active 2023 25044 55898 8 By Mouth False Milk of Magnesia 400 mg/5 mL oral suspension [Magnesium hydroxide] PRN 30ml By Mouth Daily as needed for constipation one time daily if no BM, on day 4 of no BM (PRN refer to instructions) For Constipation 30 mL 2023 Active 2023 58646 57148 6 Daily as needed By Mouth False Atorvastati n 40 mg tablet [generic] 08/26 Inactiv e 2023 80795 76743 5 Atorvastati n 40 mg tablet [generic] 40mg By Mouth Once daily For HDL 40mg 2023 Active 2023 35527 12781 5 Once daily By Mouth False Insulin aspart (U-100) 100 unit/mL (3 mL) subcutaneou s pen [generic] 15 units Subcutaneous 1 time For dm 15 units 08/26 Inactiv e 2023 32688 40715 5 1 time Subcut aneous False Humalog KwikPen (U-100) Insulin 100 unit/mL subcutaneou s 15 units Subcutaneous 1 time For dm 15 units 08/27 Inactiv e 2023 99998 22194 9 1 time Subcut aneous False Linezolid 600 mg tablet [generic] 600 mg By Mouth Every 12 hours For MRSA INFECTION L BKA 600 mg 09/06 Inactiv e 2023 02804 68545 1 Every 12 hours By Mouth False Cefpodoxime 200 mg tablet [generic] 400 mg By Mouth Twice daily For MRSA INFECTION L BKA 400 mg 08/31 Inactiv e 2023 44748 30373 0 Twice daily By Mouth False Senna 8.6 mg tablet 8.6 mg By Mouth Once daily For Constipation 8.6 mg 09/07 Inactiv e 2023 40561 76036 1 Once daily By Mouth False Humalog [...] abnormalities . Per Carb 2023 Active 2023 71547 12991 9 4 times a day Subcut aneous False Alendronate 35 mg tablet [generic] 08/31 Inactiv e 2023 95004 62462 5 Alendronate 35 mg tablet [generic] 35mg By Mouth Every week For Osteoporosis 35mg 2023 Active 2023 49440 20607 5 Every week By Mouth False ProSource 10 gram-100 kcal/30 mL oral liquid 30 ml By Mouth Once daily For wound healing 30 ml 2023 Active 2023 70839 47665 2 Once daily By Mouth False Clotrimazol e 1 % topical cream [generic] 1 applicaiton Topical Twice daily For tinea, apply to groin rash after cleansing and throughouly drying. Can discontinue order 3 days after rash resolves. 1 applica stacy 09/08 Inactiv e 2023 76410 49886 0 Twice daily Topica l False MAGIC MIX 1:1:1:1 : ZINC OXIDE EXTERNAL OINTMENT 40%; HYDROCOTISO NE EXTERNAL CREAM 1%; NYSTATIN EXTERNAL CREAM 877463T/GM; SILVADENE CREAM 1% Every shift Apply topically to MASD area on coccyx/buttoc ks each shift and as needed for incontinence care For MASD on coccyx layer 2023 Active 2023 Every shift Topica l False Senna 8.6 mg tablet 8.6 mg By Mouth Once daily For Constipation 8.6 mg 09/07 Inactiv e 2023 01963 55733 1 Once daily By Mouth False Senna 8.6 mg tablet 8.6 mg By Mouth Once daily As Needed For Constipation 8.6 mg 2023 Active 2023 72007 47263 1 Once daily By Mouth False BD AutoShield Duo Pen Needle 30 gauge x 3/16in 1 pen needle Subcutaneous 4 times a day For DM 1 pen needle 2023 Active 2023 44086 37515 5 4 times a day Subcut aneous False Hydrocortis one 1 % topical ointment [generic] 1 application Topical Twice daily For tinea *mix 1:1 with clotrimazole cream and apply to clean/dry groin rash 1 applica peggy 09/19 Active 2023 01204 60937 6 Twice daily Topica l False Clotrimazol e 1 % topical cream [generic] 1 applicaiton Topical Twice daily For tinea, apply to groin rash after cleansing and throughouly drying. MIX WITH HYDROCORTISON E Can discontinue order 3 days after rash resolves. 1 applica stacy 2023 Active 2023 72313 96860 0 Twice daily Topica l False Humalog KwikPen (U-100) Insulin 100 unit/mL subcutaneou s 10/10/ 2024 10/10 /2024 Inactiv e 2023 94612 57010 9 MediHoney HCS 4 1/2in X 4 1/2in bandage Cleanse area with NSS, apply one medihoney hydrocolloid dressing, non adherent dressing, kerlix secure with paper tape daily. For wound stage III 1 2023 Active 2023 20227 40447 1 Once daily Topica l False Problems [...] weight Temperature SpO2 Blood Sugar Pulse Respirations 05990 8 67.00 mm[Hg] - Sitting 145.00 mm[Hg] - Sitting 98.50 Forehead Scan 96.00 % 81.00/ min 16.00/min 97269 004 69092 2 67.00 mm[Hg] - Sitting 145.00 mm[Hg] - Sitting 98.50 Tympanic 81.00/ min 16.00/min 74427 004 42646 5 56.00 mm[Hg] - Sitting 142.00 mm[Hg] - Sitting 136.40 NI 100.20 Tympanic 96.00 % 92.00/ min 18.00/min 49968 004 06522 6 63586 004 76614 4 143.00 mg/dL 37631 004 91963 0 97.80 Tympanic 22478 005 07800 7 60.00 mm[Hg] - Sitting 140.00 mm[Hg] - Sitting 98.00 Tympanic 84.00/ min 18.00/min 62089 005 20345 0 63.00 mm[Hg] - Sitting 141.00 mm[Hg] - Sitting 98.20 Tympanic 92.00 % 63.00/ min 16.00/min 00591 005 18580 8 69.00 mm[Hg] - Sitting 106.00 mm[Hg] - Sitting 97.20 Tympanic 85166 005 78056 7 69.00/ min 16.00/min 36761 005 98685 3 69.00 mm[Hg] - Sitting 106.00 mm[Hg] - Sitting 98.20 Tympanic 69.00/ min 16.00/min 84482 005 19341 1 367.00 mg/dL 51574 005 19863 2 97.20 Tympanic 90896 005 14469 4 97.20 Tympanic 06336 005 41230 0 69.00 mm[Hg] - Sitting 106.00 mm[Hg] - Sitting 69.00/ min 73940 005 02051 3 452.00 mg/dL 91724 005 71246 3 452.00 mg/dL 50019 005 51750 5 352.00 mg/dL 07205 005 00807 3 352.00 mg/dL 86701 005 87535 7 98.20 Tympanic 77749 005 3 101.00 mg/dL 11735 005 8 101.00 mg/dL 03485 006 89118 4 66.00 mm[Hg] - Sitting 107.00 mm[Hg] - Sitting 98.00 Tympanic 66.00/ min 18.00/min 22955 006 34515 0 62.00 mm[Hg] - Sitting 162.00 mm[Hg] - Sitting 98.20 Tympanic 96.00 % 60.00/ min 16.00/min 99341 006 47780 4 62.00 mm[Hg] - Sitting 162.00 mm[Hg] - Sitting 98.00 Tympanic 70.00/ min 18.00/min 21266 006 35351 8 62.00 mm[Hg] - Sitting 162.00 mm[Hg] - Sitting 98.20 Tympanic 70.00/ min 18.00/min 29749 006 16797 2 66.00 mm[Hg] - Sitting 132.00 mm[Hg] - Sitting 98.60 Tympanic 74.00/ min 16.00/min 93044 006 99243 5 159.00 mg/dL 50114 006 63676 1 159.00 mg/dL 90240 006 62135 8 98.00 Tympanic Immunizations Vaccine Date Status COVID-19 09/20/2023 Completed Other 10/08/2023 Completed Shingles 05/27/2011 Completed Tetanus 04/13/2022 Completed TDaP 04/13/2022 Completed Shingles 2 10/05/2018 Completed
--- OUTSIDE RECORDS SUMMARY | 2024-10-03 11:08 | External Medical Summary | Continuity Of Care Document ---
Author Name Unknown Address [address] [address] Organization [facility] () Care Team Providers Care Hand Cigar Maker Name Role Phone DO Machado Amy Primary Care Provider [phone] Allergies Allergy Reaction Start Date End Date [...] 3 0.1 mL 08/29 Inactiv e 2023 21783 94564 0 1 time Intrad ermal False Tubersol 5 tub. unit/0.1 mL intradermal injection solution [Tuberculin PPD] 0.1mL Intradermal 1 time For PPD 2nd Step Give 2nd Step PPD Day 1 and Read results Day 3 (schedule 7 days after 1st READ) 0.1mL 09/08 Inactiv e 2023 11952 30821 0 1 time Intrad ermal False Humalog [...] order For Diabetes 08/25 Inactiv e 2023 05398 75775 9 4 times a day Subcut aneous False Aspirin 325 mg tablet [generic] 325 By Mouth Twice daily For Anticoagulati on 325 09/25 Active 2023 16703 32532 1 Twice daily By Mouth False Ferrous sulfate 325 mg (65 mg iron) tablet [generic] 325 By Mouth Once daily For anemia 325 2023 Active 2023 21338 67612 5 Once daily By Mouth False Linezolid 600 mg tablet [generic] 600 mg By Mouth Every 12 hours For MRSA INFECTION L BKA 600 mg 08/25 Inactiv e 2023 20368 72056 1 Every 12 hours By Mouth False Cefpodoxime 200 mg tablet [generic] 400 mg By Mouth Twice daily For MRSA INFECTION L BKA 400 mg 08/25 Inactiv e 2023 40391 21487 0 Twice daily By Mouth False Coenzyme Q10 100 mg tablet [generic] 100 mg By Mouth Once daily For SUPP 100 mg 2023 Active 2023 05017 36004 0 Once daily By Mouth False Levothyroxi ne 50 mcg tablet [generic] 50mcg By Mouth Once daily For hypothyroidis m 50mcg 2023 Active 2023 14062 33731 0 Once daily By Mouth False One A Day Men Complete 240 mcg-25 mcg-300 mcg tablet 1 tab By Mouth Once daily For supplement 1 tab 2023 Active 2023 08923 92509 1 Once daily By Mouth False Cholecalcif adalberto (vitamin D3) 50 mcg (2,000 unit) tablet [generic] 1 TAB By Mouth Once daily For SUPP 1 TAB 2023 Active 2023 88849 05146 1 Once daily By Mouth False Cetirizine 10 mg tablet [generic] 1 TAB By Mouth At bedtime For Allergies 1 TAB 2023 Active 2023 90554 56076 0 At bedtime By Mouth False Timolol maleate 0.25 % eye drops [generic] 1 drop Both Eyes Twice daily For glaucoma 1 drop 2023 0000 0000 Active 2023 05327 07505 5 Twice daily Both Eyes False Alendronate 35 mg tablet [generic] 35mg By Mouth Every week For SIADH 35mg 08/31 Inactiv e 2023 62300 86287 5 Every week By Mouth False Lantus Solostar U-100 Insulin 100 unit/mL (3 mL) subcutaneou s pen 18 units Subcutaneous Every morning For DIABETES 18 units 08/25 Inactiv e 2023 43677 25295 0 Every morning Subcut aneous False Lantus Solostar U-100 Insulin 100 unit/mL (3 mL) subcutaneou s pen 18 units Subcutaneous Every morning For DIABETES 18 units 2023 Active 2023 18890 63803 0 Every morning Subcut aneous False Linezolid 600 mg tablet [generic] 600 mg By Mouth Every 12 hours For MRSA INFECTION L BKA 600 mg 08/28 Inactiv e 2023 96995 19790 1 Every 12 hours By Mouth False [...] order For Diabetes 08/31 Inactiv e 2023 32391 72549 9 4 times a day Subcut aneous False Cefpodoxime 200 mg tablet [generic] 400 mg By Mouth Twice daily For MRSA INFECTION L BKA 400 mg 08/28 Inactiv e 2023 33879 96909 0 Twice daily By Mouth False Brimonidine 0.1 % eye drops [generic] 1 drop Both Eyes Twice daily For glaucoma 1 drop 2023 Active 2023 09677 84754 0 Twice daily Both Eyes False Metoprolol succinate ER 50 mg tablet,exte nded release 24 hr [generic] 50 mg By Mouth Once daily HOLD FOR SBP <100, or pulse <60 For HTN 50 mg 2023 Active 2023 63567 39270 1 Once daily By Mouth False Amlodipine 2.5 mg tablet [generic] 2.5 mg By Mouth Once daily For HTN 2.5 mg 2023 Active 2023 24489 76419 5 Once daily By Mouth False Docusate sodium 100 mg capsule [generic] 100mg By Mouth Twice daily as needed For constipation HOLD FOR LOOSE STOOLS 100mg 2023 Active 2023 94246 19848 1 Twice daily as needed By Mouth False Atorvastati n 40 mg tablet [generic] 40mg By Mouth Once daily For HDL 40mg 08/26 Inactiv e 2023 56632 29236 5 Once daily By Mouth False Tylenol 325 mg tablet 2 tabs By Mouth Every 4 hours as needed For Pain DO NOT EXCEED 3000 MG APAP/24 Hours 2 tabs 2023 Active 2023 62795 85275 0 Every 4 hours as needed By Mouth False Tylenol 325 mg tablet 2 tabs By Mouth Every 4 hours as needed For Fever >100 DO NOT EXCEED 3000 MG APAP/24 Hours 2 tabs 2023 Active 2023 89771 74943 0 Every 4 hours as needed By Mouth False Dulcolax (bisacodyl) 10 mg rectal suppository One Suppository per rectum PRN if Milk of Magnisia ineffective. Give on day 5 of no BM 1 sup 2023 Active 2023 00497 90301 1 Daily as needed Rectal False Fleet Enema 19 gram-7 gram/118 mL Administer per rectum PRN one time if dulcolax suppository not effective. Give on day 6 of no BM 1 2023 Active 2023 64384 84783 6 Daily as needed Rectal False Dextrose 50 % in water (D50W) intravenous solution [generic] Dextrose 50% evonne 20-50 ml (slow push) Intravenous if Glucagon not effective after 15 minutes. CALL 911 for ED Evaluation. 50% evonne 2023 Active 2023 34111 42983 9 Intrav enous False Glucagon (HCl) Emergency Kit 1 mg solution for injection Administer Glucagon 1 mg Intramuscular if 15 minutes after GLucose Gel is administered Glucose remains less than 70 1 mg 2023 Active 2023 70849 97085 2 Intram uscula r False Glucose Gel 40 % oral gel [Dextrose] PRN If resident is unable to swallow (with or without symptoms) and Glucose results less than 70 give GLucose 40% Gel 1 tube orally - Recheck Glucose 15 minutes after administratio n. 1 tube 2023 Active 2023 00592 94294 8 By Mouth False Milk of Magnesia 400 mg/5 mL oral suspension [Magnesium hydroxide] PRN 30ml By Mouth Daily as needed for constipation one time daily if no BM, on day 4 of no BM (PRN refer to instructions) For Constipation 30 mL 2023 Active 2023 03061 88963 6 Daily as needed By Mouth False Atorvastati n 40 mg tablet [generic] 08/26 Inactiv e 2023 41478 50511 5 Atorvastati n 40 mg tablet [generic] 40mg By Mouth Once daily For HDL 40mg 2023 Active 2023 03118 87841 5 Once daily By Mouth False Insulin aspart (U-100) 100 unit/mL (3 mL) subcutaneou s pen [generic] 15 units Subcutaneous 1 time For dm 15 units 08/26 Inactiv e 2023 02256 90247 5 1 time Subcut aneous False Humalog KwikPen (U-100) Insulin 100 unit/mL subcutaneou s 15 units Subcutaneous 1 time For dm 15 units 08/27 Inactiv e 2023 73088 33315 9 1 time Subcut aneous False Linezolid 600 mg tablet [generic] 600 mg By Mouth Every 12 hours For MRSA INFECTION L BKA 600 mg 09/06 Inactiv e 2023 03045 30965 1 Every 12 hours By Mouth False Cefpodoxime 200 mg tablet [generic] 400 mg By Mouth Twice daily For MRSA INFECTION L BKA 400 mg 08/31 Inactiv e 2023 50764 52523 0 Twice daily By Mouth False Senna 8.6 mg tablet 8.6 mg By Mouth Once daily For Constipation 8.6 mg 09/07 Inactiv e 2023 19852 30501 1 Once daily By Mouth False Humalog [...] abnormalities . Per Carb 2023 Active 2023 90964 19980 9 4 times a day Subcut aneous False Alendronate 35 mg tablet [generic] 08/31 Inactiv e 2023 11832 61497 5 Problems Code Description Start Date End Date Status D64.9 Anemia, unspecified 08/25/2024 Activ e I25.10 Atherosclerotic hear t disease of [place] coronary artery without angina pectoris 08/25/2024 Active E78.5 Hyperlipidemia, unspecified 08/25/2024 00 Active I10. Essential (primary) hypertension 08/25/2024 Active M86.9 Osteomyelitis, unspecified 08/25/2024/000 0 Active Z89.512 Acquired absence of left [...] weight Temperature SpO2 Blood Sugar Pulse Respirations 24178 8 67.00 mm[Hg] - Sitting 145.00 mm[Hg] - Sitting 98.50 Forehead Scan 96.00 % 81.00/ min 16.00/min 32667 2 67.00 mm[Hg] - Sitting 145.00 mm[Hg] - Sitting 98.50 Tympanic 81.00/ min 16.00/min 17333 5 56.00 mm[Hg] - Sitting 142.00 mm[Hg] - Sitting 136.40 NI 100.20 Tympanic 96.00 % 92.00/ min 18.00/min 99407 004 51136 6 37853 004 30855 4 143.00 mg/dL 47157 004 36953 0 97.80 Tympanic 16041 005 85213 7 60.00 mm[Hg] - Sitting 140.00 mm[Hg] - Sitting 98.00 Tympanic 84.00/ min 18.00/min 92443 005 15248 0 63.00 mm[Hg] - Sitting 141.00 mm[Hg] - Sitting 98.20 Tympanic 92.00 % 63.00/ min 16.00/min 03995 005 35528 8 69.00 mm[Hg] - Sitting 106.00 mm[Hg] - Sitting 97.20 Tympanic 45770 005 08094 7 69.00/ min 16.00/min 60887 005 67190 3 69.00 mm[Hg] - Sitting 106.00 mm[Hg] - Sitting 98.20 Tympanic 69.00/ min 16.00/min 79420 005 44109 1 367.00 mg/dL 14248 005 66824 2 97.20 Tympanic 08570 005 44794 4 97.20 Tympanic 63928 005 52479 0 69.00 mm[Hg] - Sitting 106.00 mm[Hg] - Sitting 69.00/ min 25519 005 61714 3 452.00 mg/dL 38098 005 39157 3 452.00 mg/dL 96580 005 55154 5 352.00 mg/dL 03433 005 44825 3 352.00 mg/dL 34385 005 44767 7 98.20 Tympanic 63637 005 54874 3 101.00 mg/dL 44422 005 34519 8 101.00 mg/dL 21198 006 08902 4 66.00 mm[Hg] - Sitting 107.00 mm[Hg] - Sitting 98.00 Tympanic 66.00/ min 18.00/min 10222 006 02835 0 62.00 mm[Hg] - Sitting 162.00 mm[Hg] - Sitting 98.20 Tympanic 96.00 % 60.00/ min 16.00/min 70410 006 97852 4 62.00 mm[Hg] - Sitting 162.00 mm[Hg] - Sitting 98.00 Tympanic 70.00/ min 18.00/min 40767 006 90853 8 62.00 mm[Hg] - Sitting 162.00 mm[Hg] - Sitting 98.20 Tympanic 70.00/ min 18.00/min 01074 006 50366 2 66.00 mm[Hg] - Sitting 132.00 mm[Hg] - Sitting 98.60 Tympanic 74.00/ min 16.00/min 41550 006 44107 5 159.00 mg/dL 34674 006 63423 1 159.00 mg/dL 67203 006 98333 8 98.00 Tympanic 15048 006 78838 2 62.00 mm[Hg] - Sitting 162.00 mm[Hg] - Sitting 70.00/ min 74345 006 15220 7 264.00 mg/dL 17881 006 03640 7 264.00 mg/dL 38479 006 35965 4 196.00 mg/dL 32778 006 54510 3 98.20 Tympanic 90684 006 94351 6 271.00 mg/dL 87031 007 30476 3 97.20 Tympanic 58088 007 18993 2 63.00 mm[Hg] - Sitting 132.00 mm[Hg] - Sitting 98.50 Tympanic 94.00 % 66.00/ min 16.00/min 85476 007 79144 5 188.00 mg/dL 56031 007 61846 2 188.00 mg/dL 78937 007 06439 2 188.00 mg/dL 76308 007 57895 7 97.20 Tympanic 29645 007 96116 6 97.20 Tympanic 24865 007 17418 5 67.00 mm[Hg] - Sitting 152.00 mm[Hg] - Sitting 68.00/ min 26394 007 23193 0 141.00 mg/dL 75929 007 84543 3 141.00 mg/dL 16612 007 36648 1 366.00 mg/dL 50917 007 78587 7 366.00 mg/dL 94108 007 09165 7 98.00 Tympanic 69771 007 50772 6 324.00 mg/dL 79798 007 60034 3 98.00 Tympanic 05075 007 99489 7 324.00 mg/dL 38058 008 00660 0 98.00 Tympanic 69836 008 25141 2 97.90 Tympanic 45539 008 25081 0 98.20 Tympanic 56114 008 46492 0 73.00 mm[Hg] - Sitting 156.00 mm[Hg] - Sitting 98.60 Tympanic 99.00 % 66.00/ min 20.00/min 73444 008 95554 5 137.00 mg/dL 98900 008 43501 7 137.00 mg/dL 56021 008 64605 2 97.90 Tympanic 20095 008 73892 1 137.00 mg/dL 42466 008 17085 8 97.90 Tympanic 45766 008 10612 5 67.00 mm[Hg] - Sitting 124.00 /min 17170 008 54191 6 212.00 mg/dL 83827 008 62028 6 212.00 mg/dL 43001 008 11873 9 317.00 mg/dL 78791 008 92254 4 317.00 mg/dL 83464 008 63063 8 252.00 mg/dL 56330 008 66937 0 98.70 Tympanic 51214 008 18721 7 252.00 mg/dL 67259 008 73344 3 98.70 Tympanic 34757 009 52892 9 98.70 Tympanic 60781 009 07933 3 98.20 Tympanic 20167 009 30593 5 98.40 Tympanic 09606 009 20444 5 57.00 mm[Hg] - Sitting 129.00 mm[Hg] - Sitting 98.30 Tympanic 97.00 % 65.00/ min 18.00/min 55771 009 51406 1 255.00 mg/dL 78638 009 00329 4 255.00 mg/dL 42521 009 05855 5 98.20 Tympanic 67834 009 55529 0 255.00 mg/dL 06773 009 34209 0 98.20 Tympanic 22638 009 67546 4 63.00 mm[Hg] - Lying Down 102.00 mm[Hg] - Lying Down 58.00/ min 16951 009 65596 0 167.00 mg/dL 72919 009 93127 1 167.00 mg/dL 08638 009 58070 2 164.00 mg/dL 00721 009 93461 1 164.00 mg/dL 58237 009 39210 5 208.00 mg/dL 00292 010 73899 3 98.40 Tympanic 55681 010 57145 5 98.40 Tympanic 49067 010 83820 7 66 [place] [address] 010 77935 4 60.00 mm[Hg] - Sitting 143.00 mm[Hg] - Sitting 98.90 Tympanic 98.00 % 67.00/ min 18.00/min 11393 010 88530 2 214.00 mg/dL 78574 010 51057 0 214.00 mg/dL 29824 010 55591 7 214.00 mg/dL 48645 010 12103 6 64.00 mm[Hg] - Sitting 110.00 mm[Hg] - Sitting 72.00/ min 53591 010 72858 7 98.40 Tympanic 94079 010 32778 1 212.00 mg/dL 37164 010 85866 2 212.00 mg/dL 22189 010 04324 1 115.00 mg/dL 21385 010 52761 0 115.00 mg/dL 59904 010 80137 4 98.50 Tympanic 06298 010 40623 4 150.00 mg/dL 43264 010 93755 0 150.00 mg/dL 03908 011 08333 9 98.60 Tympanic 67032 011 02064 1 67.00 mm[Hg] - Sitting 144.00 mm[Hg] - Sitting 98.20 Tympanic 98.00 % 61.00/ min 18.00/min 20589 011 97161 7 290.00 mg/dL 92650 011 11421 2 290.00 mg/dL 33882 011 77461 2 290.00 mg/dL 03542 011 03501 7 54.00 mm[Hg] - Sitting 136.00 mm[Hg] - Sitting 101.00 /min 95040 011 43236 7 98.60 Tympanic 93593 011 74518 5 240.00 mg/dL 60761 011 75597 1 240.00 mg/dL 59971 011 41171 1 156.00 mg/dL 04741 011 13482 9 156.00 mg/dL 61938 011 40854 0 97.80 Tympanic 53411 011 07744 8 343.00 mg/dL 76600 012 73927 9 97.90 Tympanic 08686 012 03295 2 466.00 mg/dL 81697 012 79932 1 466.00 mg/dL 07000 012 00579 3 466.00 mg/dL 74582 012 85280 8 97.90 Tympanic 01901 012 33502 8 56.00 mm[Hg] - Sitting 96.00 mm[Hg] - Sitting 61.00/ min 46189 012 03673 7 350.00 mg/dL 04826 012 23552 5 350.00 mg/dL 77395 012 37355 6 111.00 mg/dL 63453 012 22508 0 111.00 mg/dL 68923 012 04636 5 98.40 Tympanic 63499 012 19566 6 114.00 mg/dL 91303 013 86913 4 74.00 mm[Hg] - Sitting 112.00 mm[Hg] - Sitting 98.40 Tympanic 70.00/ min 18.00/min 68245 013 35067 8 244.00 mg/dL 71312 013 96937 7 244.00 mg/dL 85835 013 52945 1 244.00 mg/dL 51351 013 19135 1 98.20 Tympanic 03084 013 59842 7 72.00 mm[Hg] - Sitting 119.00 mm[Hg] - Sitting 76.00/ min 98990 013 85165 7 253.00 mg/dL 60167 013 36629 4 253.00 mg/dL 80922 013 07742 9 156.00 mg/dL 94628 013 11012 5 156.00 mg/dL 55654 013 39144 4 97.90 Tympanic 91055 013 64852 5 189.00 mg/dL 94930 014 43975 9 98.10 Tympanic 87679 014 13811 0 61.00 mm[Hg] - Sitting 139.00 mm[Hg] - Sitting 98.20 Forehead Scan 99.00 % 66.00/ min 18.00/min 78518 014 03558 3 169.00 mg/dL 10213 014 45739 3 98.10 Tympanic 37045 014 41694 3 75.00 mm[Hg] - Sitting 121.00 mm[Hg] - Sitting 71.00/ min 48038 014 49824 9 221.00 mg/dL 82788 014 24785 9 62.00 mg/dL 70674 014 38984 5 62.00 mg/dL 37202 014 81287 8 156.00 mg/dL 87803 014 36855 6 98.10 Tympanic 25448 014 90669 7 156.00 mg/dL 56779 015 75161 4 14514 015 37091 7 62.00 mm[Hg] - Sitting 142.00 mm[Hg] - Sitting 98.20 Tympanic 99.00 % 67.00/ min 18.00/min 57889 015 81675 9 120.00 mg/dL 55670 015 18633 7 98.00 Tympanic 30229 015 57729 2 82.00 mm[Hg] - Sitting 119.00 /min 83885 015 87212 9 110.00 mg/dL 15783 015 85241 6 104.00 mg/dL 76346 015 98102 0 100.00 mg/dL 23833 015 70322 2 98.10 Tympanic 90615 015 01265 6 100.00 mg/dL 62429 016 98429 2 67.00 mm[Hg] - Sitting 147.00 mm[Hg] - Sitting 99.00 Tympanic 99.00 % 78.00/ min 20.00/min 25297 016 58838 5 158.00 mg/dL 99780 016 03166 1 158.00 mg/dL 02021 016 71975 2 158.00 mg/dL 71176 016 36095 0 66.00 mm[Hg] - Sitting 121.00 mm[Hg] - Sitting 74.00/ min 40143 016 85795 1 97.00 mg/dL 87440 016 45790 5 97.00 mg/dL 34858 016 62944 4 78.00 mg/dL 94051 016 61214 6 78.00 mg/dL 34702 016 89649 5 248.00 mg/dL 41649 016 20482 8 248.00 mg/dL 77453 017 99908 3 54.00 mm[Hg] - Sitting 142.00 mm[Hg] - Sitting 98.30 Tympanic 99.00 % 76.00/ min 18.00/min 50835 017 96721 4 267.00 mg/dL 76701 017 82301 6 73.00 mm[Hg] - Sitting 109.00 mm[Hg] - Sitting 70.00/ min 08357 017 65600 1 184.00 mg/dL 42236 017 33876 5 184.00 mg/dL 47366 017 37305 9 248.00 mg/dL 76953 017 77505 8 299.00 mg/dL 79008 017 69236 3 299.00 mg/dL 99512 018 21534 7 50.00 mm[Hg] - Sitting 125.00 mm[Hg] - Sitting 98.30 Tympanic 98.00 % 76.00/ min 16.00/min 80991 018 69527 3 168.00 mg/dL 60117 018 29790 0 75.00 mm[Hg] - Sitting 121.00 mm[Hg] - Sitting 70.00/ min 00295 018 45254 7 264.00 mg/dL 34113 018 50564 6 132.00 mg/dL 21272 018 13423 6 154.00 mg/dL 86482 018 05403 6 154.00 mg/dL 03331 019 07778 9 159.00 mg/dL 62760 019 71702 8 73.00 mm[Hg] - Sitting 110.00 mm[Hg] - Sitting 72.00/ min 019 44592 4 191.00 mg/dL 019 35685 8 70.00 mg/dL 019 80132 4 70.00 mg/dL Immunizations Vaccine Date Status COVID-19 09/20/2023 Completed Other 10/08/2023 Completed Shingles 05/27/2011 Completed Tetanus 04/13/2022 Completed TDaP 04/13/2022 Completed Shingles 2 10/05/2018 Completed
--- OUTSIDE RECORDS SUMMARY | 2024-10-03 11:08 | External Medical Summary | Continuity Of Care Document ---
Author Name Unknown Address [address] [address] Organization [facility] () Care Team Providers Care Senior Education Specialist Name Role Phone DO Machado Amy Primary Care Provider [phone] Allergies Allergy Reaction Start Date End Date [...] 3 0.1 mL 08/29 Inactiv e 2023 90040 97423 0 1 time Intrad ermal False Tubersol 5 tub. unit/0.1 mL intradermal injection solution [Tuberculin PPD] 0.1mL Intradermal 1 time For PPD 2nd Step Give 2nd Step PPD Day 1 and Read results Day 3 (schedule 7 days after 1st READ) 0.1mL 09/08 Inactiv e 2023 83307 10571 0 1 time Intrad ermal False Humalog [...] order For Diabetes 08/25 Inactiv e 2023 66479 80105 9 4 times a day Subcut aneous False Aspirin 325 mg tablet [generic] 325 By Mouth Twice daily For Anticoagulati on 325 09/25 Active 2023 04962 14603 1 Twice daily By Mouth False Ferrous sulfate 325 mg (65 mg iron) tablet [generic] 325 By Mouth Once daily For anemia 325 2023 Active 2023 23058 91173 5 Once daily By Mouth False Linezolid 600 mg tablet [generic] 600 mg By Mouth Every 12 hours For MRSA INFECTION L BKA 600 mg 08/25 Inactiv e 2023 47580 80862 1 Every 12 hours By Mouth False Cefpodoxime 200 mg tablet [generic] 400 mg By Mouth Twice daily For MRSA INFECTION L BKA 400 mg 08/25 Inactiv e 2023 80473 70539 0 Twice daily By Mouth False Coenzyme Q10 100 mg tablet [generic] 100 mg By Mouth Once daily For SUPP 100 mg 2023 Active 2023 76447 31000 0 Once daily By Mouth False Levothyroxi ne 50 mcg tablet [generic] 50mcg By Mouth Once daily For hypothyroidis m 50mcg 2023 Active 2023 71702 59856 0 Once daily By Mouth False One A Day Men Complete 240 mcg-25 mcg-300 mcg tablet 1 tab By Mouth Once daily For supplement 1 tab 2023 Active 2023 08301 90126 1 Once daily By Mouth False Cholecalcif adalberto (vitamin D3) 50 mcg (2,000 unit) tablet [generic] 1 TAB By Mouth Once daily For SUPP 1 TAB 2023 Active 2023 77167 22608 1 Once daily By Mouth False Cetirizine 10 mg tablet [generic] 1 TAB By Mouth At bedtime For Allergies 1 TAB 2023 Active 2023 06406 00507 0 At bedtime By Mouth False Timolol maleate 0.25 % eye drops [generic] 1 drop Both Eyes Twice daily For glaucoma 1 drop 2023 0000 0000 Active 2023 47199 47663 5 Twice daily Both Eyes False Alendronate 35 mg tablet [generic] 35mg By Mouth Every week For SIADH 35mg 08/31 Inactiv e 2023 97496 64934 5 Every week By Mouth False Lantus Solostar U-100 Insulin 100 unit/mL (3 mL) subcutaneou s pen 18 units Subcutaneous Every morning For DIABETES 18 units 08/25 Inactiv e 2023 31666 68944 0 Every morning Subcut aneous False Lantus Solostar U-100 Insulin 100 unit/mL (3 mL) subcutaneou s pen 18 units Subcutaneous Every morning For DIABETES 18 units 2023 Active 2023 89404 90612 0 Every morning Subcut aneous False Linezolid 600 mg tablet [generic] 600 mg By Mouth Every 12 hours For MRSA INFECTION L BKA 600 mg 08/28 Inactiv e 2023 82719 44210 1 Every 12 hours By Mouth False [...] order For Diabetes 08/31 Inactiv e 2023 57829 03771 9 4 times a day Subcut aneous False Cefpodoxime 200 mg tablet [generic] 400 mg By Mouth Twice daily For MRSA INFECTION L BKA 400 mg 08/28 Inactiv e 2023 51021 45150 0 Twice daily By Mouth False Brimonidine 0.1 % eye drops [generic] 1 drop Both Eyes Twice daily For glaucoma 1 drop 2023 Active 2023 40460 29343 0 Twice daily Both Eyes False Metoprolol succinate ER 50 mg tablet,exte nded release 24 hr [generic] 50 mg By Mouth Once daily HOLD FOR SBP <100, or pulse <60 For HTN 50 mg 2023 Active 2023 28272 97047 1 Once daily By Mouth False Amlodipine 2.5 mg tablet [generic] 2.5 mg By Mouth Once daily For HTN 2.5 mg 2023 Active 2023 98601 60593 5 Once daily By Mouth False Docusate sodium 100 mg capsule [generic] 100mg By Mouth Twice daily as needed For constipation HOLD FOR LOOSE STOOLS 100mg 2023 Active 2023 63143 05377 1 Twice daily as needed By Mouth False Atorvastati n 40 mg tablet [generic] 40mg By Mouth Once daily For HDL 40mg 08/26 Inactiv e 2023 41824 34225 5 Once daily By Mouth False Tylenol 325 mg tablet 2 tabs By Mouth Every 4 hours as needed For Pain DO NOT EXCEED 3000 MG APAP/24 Hours 2 tabs 2023 Active 2023 74450 18553 0 Every 4 hours as needed By Mouth False Tylenol 325 mg tablet 2 tabs By Mouth Every 4 hours as needed For Fever >100 DO NOT EXCEED 3000 MG APAP/24 Hours 2 tabs 2023 Active 2023 72013 35630 0 Every 4 hours as needed By Mouth False Dulcolax (bisacodyl) 10 mg rectal suppository One Suppository per rectum PRN if Milk of Magnisia ineffective. Give on day 5 of no BM 1 sup 2023 Active 2023 15781 71042 1 Daily as needed Rectal False Fleet Enema 19 gram-7 gram/118 mL Administer per rectum PRN one time if dulcolax suppository not effective. Give on day 6 of no BM 1 2023 Active 2023 56649 48324 6 Daily as needed Rectal False Dextrose 50 % in water (D50W) intravenous solution [generic] Dextrose 50% evonne 20-50 ml (slow push) Intravenous if Glucagon not effective after 15 minutes. CALL 911 for ED Evaluation. 50% evonne 2023 Active 2023 68312 19911 9 Intrav enous False Glucagon (HCl) Emergency Kit 1 mg solution for injection Administer Glucagon 1 mg Intramuscular if 15 minutes after GLucose Gel is administered Glucose remains less than 70 1 mg 2023 Active 2023 39729 64155 2 Intram uscula r False Glucose Gel 40 % oral gel [Dextrose] PRN If resident is unable to swallow (with or without symptoms) and Glucose results less than 70 give GLucose 40% Gel 1 tube orally - Recheck Glucose 15 minutes after administratio n. 1 tube 2023 Active 2023 19982 97416 8 By Mouth False Milk of Magnesia 400 mg/5 mL oral suspension [Magnesium hydroxide] PRN 30ml By Mouth Daily as needed for constipation one time daily if no BM, on day 4 of no BM (PRN refer to instructions) For Constipation 30 mL 2023 Active 2023 75743 50769 6 Daily as needed By Mouth False Atorvastati n 40 mg tablet [generic] 08/26 Inactiv e 2023 17250 07832 5 Atorvastati n 40 mg tablet [generic] 40mg By Mouth Once daily For HDL 40mg 2023 Active 2023 74670 32903 5 Once daily By Mouth False Insulin aspart (U-100) 100 unit/mL (3 mL) subcutaneou s pen [generic] 15 units Subcutaneous 1 time For dm 15 units 08/26 Inactiv e 2023 62045 34274 5 1 time Subcut aneous False Humalog KwikPen (U-100) Insulin 100 unit/mL subcutaneou s 15 units Subcutaneous 1 time For dm 15 units 08/27 Inactiv e 2023 30235 77349 9 1 time Subcut aneous False Linezolid 600 mg tablet [generic] 600 mg By Mouth Every 12 hours For MRSA INFECTION L BKA 600 mg 09/06 Inactiv e 2023 41635 26128 1 Every 12 hours By Mouth False Cefpodoxime 200 mg tablet [generic] 400 mg By Mouth Twice daily For MRSA INFECTION L BKA 400 mg 08/31 Inactiv e 2023 14588 06069 0 Twice daily By Mouth False Senna 8.6 mg tablet 8.6 mg By Mouth Once daily For Constipation 8.6 mg 09/07 Inactiv e 2023 63577 65437 1 Once daily By Mouth False Humalog [...] abnormalities . Per Carb 2023 Active 2023 42294 62353 9 4 times a day Subcut aneous False Alendronate 35 mg tablet [generic] 08/31 Inactiv e 2023 01488 21736 5 Alendronate 35 mg tablet [generic] 35mg By Mouth Every week For Osteoporosis 35mg 2023 Active 2023 01101 61181 5 Every week By Mouth False ProSource 10 gram-100 kcal/30 mL oral liquid 30 ml By Mouth Once daily For wound healing 30 ml 2023 Active 2023 71587 71178 2 Once daily By Mouth False Problems Code Description Start Date End Date Status D64.9 Anemia, unspecified 08/25/2024 Activ e I25.10 Atherosclerotic hear t disease of [place] coronary artery without angina pectoris 08/25/2024 Active [...] weight Temperature SpO2 Blood Sugar Pulse Respirations 42219 004 67292 8 67.00 mm[Hg] - Sitting 145.00 mm[Hg] - Sitting 98.50 Forehead Scan 96.00 % 81.00/ min 16.00/min 26357 004 59533 2 67.00 mm[Hg] - Sitting 145.00 mm[Hg] - Sitting 98.50 Tympanic 81.00/ min 16.00/min 55680 004 37401 5 56.00 mm[Hg] - Sitting 142.00 mm[Hg] - Sitting 136.40 NI 100.20 Tympanic 96.00 % 92.00/ min 18.00/min 67917 004 92780 6 16633 004 46165 4 143.00 mg/dL 70573 004 75142 0 97.80 Tympanic 76482 005 36713 7 60.00 mm[Hg] - Sitting 140.00 mm[Hg] - Sitting 98.00 Tympanic 84.00/ min 18.00/min 65185 005 65617 0 63.00 mm[Hg] - Sitting 141.00 mm[Hg] - Sitting 98.20 Tympanic 92.00 % 63.00/ min 16.00/min 13473 005 26476 8 69.00 mm[Hg] - Sitting 106.00 mm[Hg] - Sitting 97.20 Tympanic 12778 005 73044 7 69.00/ min 16.00/min 38303 005 81145 3 69.00 mm[Hg] - Sitting 106.00 mm[Hg] - Sitting 98.20 Tympanic 69.00/ min 16.00/min 66744 005 20483 1 367.00 mg/dL 64335 005 07267 2 97.20 Tympanic 76523 005 41189 4 97.20 Tympanic 66066 005 14824 0 69.00 mm[Hg] - Sitting 106.00 mm[Hg] - Sitting 69.00/ min 14698 005 83688 3 452.00 mg/dL 26169 005 46588 3 452.00 mg/dL 13505 005 60575 5 352.00 mg/dL 64701 005 35087 3 352.00 mg/dL 12605 005 04249 7 98.20 Tympanic 76560 005 56647 3 101.00 mg/dL 48810 005 53298 8 101.00 mg/dL 59002 006 21546 4 66.00 mm[Hg] - Sitting 107.00 mm[Hg] - Sitting 98.00 Tympanic 66.00/ min 18.00/min 06072 006 60921 0 62.00 mm[Hg] - Sitting 162.00 mm[Hg] - Sitting 98.20 Tympanic 96.00 % 60.00/ min 16.00/min 27547 006 52898 4 62.00 mm[Hg] - Sitting 162.00 mm[Hg] - Sitting 98.00 Tympanic 70.00/ min 18.00/min 40882 006 94995 8 62.00 mm[Hg] - Sitting 162.00 mm[Hg] - Sitting 98.20 Tympanic 70.00/ min 18.00/min 22565 006 63338 2 66.00 mm[Hg] - Sitting 132.00 mm[Hg] - Sitting 98.60 Tympanic 74.00/ min 16.00/min 15569 006 40084 5 159.00 mg/dL 73579 006 55097 1 159.00 mg/dL 83784 006 68615 8 98.00 Tympanic 99393 006 58824 2 62.00 mm[Hg] - Sitting 162.00 mm[Hg] - Sitting 70.00/ min 94852 006 66071 7 264.00 mg/dL 32913 006 28610 7 264.00 mg/dL 80584 006 17921 4 196.00 mg/dL 14714 006 54918 3 98.20 Tympanic 22678 006 53629 6 271.00 mg/dL 74629 007 57962 3 97.20 Tympanic 91271 007 11265 2 63.00 mm[Hg] - Sitting 132.00 mm[Hg] - Sitting 98.50 Tympanic 94.00 % 66.00/ min 16.00/min 27705 007 26612 5 188.00 mg/dL 82999 007 16016 2 188.00 mg/dL 36202 007 03647 2 188.00 mg/dL 69651 007 14727 7 97.20 Tympanic 37524 007 33939 6 97.20 Tympanic 54629 007 11194 5 67.00 mm[Hg] - Sitting 152.00 mm[Hg] - Sitting 68.00/ min 91879 007 47026 0 141.00 mg/dL 24517 007 55758 3 141.00 mg/dL 08538 007 74305 1 366.00 mg/dL 21709 007 60323 7 366.00 mg/dL 01462 007 00244 7 98.00 Tympanic 26944 007 45926 6 324.00 mg/dL 58003 007 21593 3 98.00 Tympanic 93691 007 48519 7 324.00 mg/dL 07926 008 29188 0 98.00 Tympanic 63653 008 31125 2 97.90 Tympanic 21260 008 80657 0 98.20 Tympanic 88464 008 99920 0 73.00 mm[Hg] - Sitting 156.00 mm[Hg] - Sitting 98.60 Tympanic 99.00 % 66.00/ min 20.00/min 93006 008 95386 5 137.00 mg/dL 93557 008 64417 7 137.00 mg/dL 78922 008 01458 2 97.90 Tympanic 48291 008 51136 1 137.00 mg/dL 00977 008 52322 8 97.90 Tympanic 28159 008 52513 5 67.00 mm[Hg] - Sitting 124.00 /min 67208 008 99637 6 212.00 mg/dL 57114 008 33865 6 212.00 mg/dL 19489 008 39375 9 317.00 mg/dL 21931 008 88698 4 317.00 mg/dL 76408 008 04729 8 252.00 mg/dL 08771 008 25653 0 98.70 Tympanic 33537 008 39128 7 252.00 mg/dL 43448 008 65200 3 98.70 Tympanic 10211 009 68218 9 98.70 Tympanic 00652 009 62705 3 98.20 Tympanic 13005 009 83587 5 98.40 Tympanic 94603 009 63953 5 57.00 mm[Hg] - Sitting 129.00 mm[Hg] - Sitting 98.30 Tympanic 97.00 % 65.00/ min 18.00/min 50004 009 33280 1 255.00 mg/dL 88747 009 98909 4 255.00 mg/dL 21375 009 99257 5 98.20 Tympanic 29690 009 75800 0 255.00 mg/dL 31850 009 14371 0 98.20 Tympanic 04921 009 02130 4 63.00 mm[Hg] - Lying Down 102.00 mm[Hg] - Lying Down 58.00/ min 80714 009 44756 0 167.00 mg/dL 14378 009 33272 1 167.00 mg/dL 68871 009 09706 2 164.00 mg/dL 31673 009 19924 1 164.00 mg/dL 64704 009 52433 5 208.00 mg/dL 80179 010 72870 3 98.40 Tympanic 26475 010 10793 5 98.40 Tympanic 00449 010 06171 7 66 [place] 50878 010 10931 4 60.00 mm[Hg] - Sitting 143.00 mm[Hg] - Sitting 98.90 Tympanic 98.00 % 67.00/ min 18.00/min 87885 010 40952 2 214.00 mg/dL 67204 010 35959 0 214.00 mg/dL 69169 010 93874 7 214.00 mg/dL 35668 010 23566 6 64.00 mm[Hg] - Sitting 110.00 mm[Hg] - Sitting 72.00/ min 24883 010 70027 7 98.40 Tympanic 39630 010 41755 1 212.00 mg/dL 01504 010 39144 2 212.00 mg/dL 38839 010 74428 1 115.00 mg/dL 11166 010 35694 0 115.00 mg/dL 39533 010 54788 4 98.50 Tympanic 27969 010 36668 4 150.00 mg/dL 68540 010 37820 0 150.00 mg/dL 67299 011 43928 9 98.60 Tympanic 11168 011 85004 1 67.00 mm[Hg] - Sitting 144.00 mm[Hg] - Sitting 98.20 Tympanic 98.00 % 61.00/ min 18.00/min 32107 011 44656 7 290.00 mg/dL 71072 011 74295 2 290.00 mg/dL 87750 011 06847 2 290.00 mg/dL 08575 011 29155 7 54.00 mm[Hg] - Sitting 136.00 mm[Hg] - Sitting 101.00 /min 36647 011 57960 7 98.60 Tympanic 61325 011 97573 5 240.00 mg/dL 21059 011 69460 1 240.00 mg/dL 03143 011 28065 1 156.00 mg/dL 72109 011 67360 9 156.00 mg/dL 56964 011 71746 0 97.80 Tympanic 44633 011 09667 8 343.00 mg/dL 89633 012 41837 9 97.90 Tympanic 82153 012 02759 2 466.00 mg/dL 98778 012 90811 1 466.00 mg/dL 74718 012 17084 3 466.00 mg/dL 53690 012 24624 8 97.90 Tympanic 28052 012 04806 8 56.00 mm[Hg] - Sitting 96.00 mm[Hg] - Sitting 61.00/ min 62014 012 04665 7 350.00 mg/dL 55519 012 30194 5 350.00 mg/dL 84274 012 81943 6 111.00 mg/dL 80978 012 81093 0 111.00 mg/dL 83557 012 00365 5 98.40 Tympanic 81625 012 06803 6 114.00 mg/dL 38064 013 98803 4 74.00 mm[Hg] - Sitting 112.00 mm[Hg] - Sitting 98.40 Tympanic 70.00/ min 18.00/min 13787 013 59555 8 244.00 mg/dL 62613 013 71105 7 244.00 mg/dL 53234 013 17960 1 244.00 mg/dL 49117 013 67727 1 98.20 Tympanic 63341 013 89942 7 72.00 mm[Hg] - Sitting 119.00 mm[Hg] - Sitting 76.00/ min 33152 013 98730 7 253.00 mg/dL 61935 013 14125 4 253.00 mg/dL 57955 013 13901 9 156.00 mg/dL 73872 013 96128 5 156.00 mg/dL 16801 013 63965 4 97.90 Tympanic 36450 013 97788 5 189.00 mg/dL 76657 014 84159 9 98.10 Tympanic 26039 014 47921 0 61.00 mm[Hg] - Sitting 139.00 mm[Hg] - Sitting 98.20 Forehead Scan 99.00 % 66.00/ min 18.00/min 19718 014 07556 3 169.00 mg/dL 16623 014 83039 3 98.10 Tympanic 34390 014 06462 3 75.00 mm[Hg] - Sitting 121.00 mm[Hg] - Sitting 71.00/ min 45921 014 61258 9 221.00 mg/dL 56310 014 42870 9 62.00 mg/dL 53189 014 47101 5 62.00 mg/dL 05002 014 24390 8 156.00 mg/dL 46216 014 64749 6 98.10 Tympanic 36658 014 01010 7 156.00 mg/dL 77379 015 03430 4 02553 015 96495 7 62.00 mm[Hg] - Sitting 142.00 mm[Hg] - Sitting 98.20 Tympanic 99.00 % 67.00/ min 18.00/min 39290 015 96514 9 120.00 mg/dL 37175 015 30992 7 98.00 Tympanic 14169 015 38097 2 82.00 mm[Hg] - Sitting 119.00 /min 89370 015 27207 9 110.00 mg/dL 71617 015 90980 6 104.00 mg/dL 28542 015 15521 0 100.00 mg/dL 98829 015 16624 2 98.10 Tympanic 03230 015 33414 6 100.00 mg/dL 19950 016 27905 2 67.00 mm[Hg] - Sitting 147.00 mm[Hg] - Sitting 99.00 Tympanic 99.00 % 78.00/ min 20.00/min 02816 016 92895 5 158.00 mg/dL 39411 016 19595 1 158.00 mg/dL 51283 016 02327 2 158.00 mg/dL 59428 016 38193 0 66.00 mm[Hg] - Sitting 121.00 mm[Hg] - Sitting 74.00/ min 68773 016 06615 1 97.00 mg/dL 29195 016 64638 5 97.00 mg/dL 57467 016 49299 4 78.00 mg/dL 07972 016 67316 6 78.00 mg/dL 30551 016 53552 5 248.00 mg/dL 27979 016 95995 8 248.00 mg/dL 74032 017 78994 3 54.00 mm[Hg] - Sitting 142.00 mm[Hg] - Sitting 98.30 Tympanic 99.00 % 76.00/ min 18.00/min 26851 017 71643 4 267.00 mg/dL 30631 017 07160 6 73.00 mm[Hg] - Sitting 109.00 mm[Hg] - Sitting 70.00/ min 38624 017 42983 1 184.00 mg/dL 03641 017 31375 5 184.00 mg/dL 99181 017 58826 9 248.00 mg/dL 85262 017 51350 8 299.00 mg/dL 06716 017 10003 3 299.00 mg/dL 89546 018 27331 7 50.00 mm[Hg] - Sitting 125.00 mm[Hg] - Sitting 98.30 Tympanic 98.00 % 76.00/ min 16.00/min 68832 018 65407 3 168.00 mg/dL 05478 018 32846 0 75.00 mm[Hg] - Sitting 121.00 mm[Hg] - Sitting 70.00/ min 018 86387 7 264.00 mg/dL 018 47034 6 132.00 mg/dL Immunizations Vaccine Date Status COVID-19 09/20/2023 Completed Other 10/08/2023 Completed Shingles 05/27/2011 Completed Tetanus 04/13/2022 Completed TDaP 04/13/2022 Completed Shingles 2 10/05/2018 Completed
--- OUTSIDE RECORDS SUMMARY | 2024-10-03 11:08 | External Medical Summary | Continuity Of Care Document ---
Author Name Unknown Address [address] [address] Organization [facility] () Care Team Providers Care Philatelic Consultant Name Role Phone DO Machado Amy Primary Care Provider [phone] Allergies Allergy Reaction Start Date End Date [...] 3 0.1 mL 08/29 Inactiv e 2023 70200 81533 0 1 time Intrad ermal False Tubersol 5 tub. unit/0.1 mL intradermal injection solution [Tuberculin PPD] 0.1mL Intradermal 1 time For PPD 2nd Step Give 2nd Step PPD Day 1 and Read results Day 3 (schedule 7 days after 1st READ) 0.1mL 09/08 Inactiv e 2023 12374 38472 0 1 time Intrad ermal False Humalog [...] order For Diabetes 08/25 Inactiv e 2023 15938 13170 9 4 times a day Subcut aneous False Aspirin 325 mg tablet [generic] 325 By Mouth Twice daily For Anticoagulati on 325 09/25 Active 2023 72254 03923 1 Twice daily By Mouth False Ferrous sulfate 325 mg (65 mg iron) tablet [generic] 325 By Mouth Once daily For anemia 325 2023 Active 2023 23060 89183 5 Once daily By Mouth False Linezolid 600 mg tablet [generic] 600 mg By Mouth Every 12 hours For MRSA INFECTION L BKA 600 mg 08/25 Inactiv e 2023 93388 47951 1 Every 12 hours By Mouth False Cefpodoxime 200 mg tablet [generic] 400 mg By Mouth Twice daily For MRSA INFECTION L BKA 400 mg 08/25 Inactiv e 2023 09183 33240 0 Twice daily By Mouth False Coenzyme Q10 100 mg tablet [generic] 100 mg By Mouth Once daily For SUPP 100 mg 2023 Active 2023 61551 71440 0 Once daily By Mouth False Levothyroxi ne 50 mcg tablet [generic] 50mcg By Mouth Once daily For hypothyroidis m 50mcg 2023 Active 2023 71788 78967 0 Once daily By Mouth False One A Day Men Complete 240 mcg-25 mcg-300 mcg tablet 1 tab By Mouth Once daily For supplement 1 tab 2023 Active 2023 91209 59792 1 Once daily By Mouth False Cholecalcif adalberto (vitamin D3) 50 mcg (2,000 unit) tablet [generic] 1 TAB By Mouth Once daily For SUPP 1 TAB 2023 Active 2023 33281 22210 1 Once daily By Mouth False Cetirizine 10 mg tablet [generic] 1 TAB By Mouth At bedtime For Allergies 1 TAB 2023 Active 2023 02553 47816 0 At bedtime By Mouth False Timolol maleate 0.25 % eye drops [generic] 1 drop Both Eyes Twice daily For glaucoma 1 drop 2023 0000 0000 Active 2023 49030 15380 5 Twice daily Both Eyes False Alendronate 35 mg tablet [generic] 35mg By Mouth Every week For SIADH 35mg 08/31 Inactiv e 2023 94959 53758 5 Every week By Mouth False Lantus Solostar U-100 Insulin 100 unit/mL (3 mL) subcutaneou s pen 18 units Subcutaneous Every morning For DIABETES 18 units 08/25 Inactiv e 2023 43409 45808 0 Every morning Subcut aneous False Lantus Solostar U-100 Insulin 100 unit/mL (3 mL) subcutaneou s pen 18 units Subcutaneous Every morning For DIABETES 18 units 2023 Active 2023 10056 84833 0 Every morning Subcut aneous False Linezolid 600 mg tablet [generic] 600 mg By Mouth Every 12 hours For MRSA INFECTION L BKA 600 mg 08/28 Inactiv e 2023 36063 26809 1 Every 12 hours By Mouth [...] order For Diabetes 08/31 Inactiv e 2023 60569 59567 9 4 times a day Subcut aneous False Cefpodoxime 200 mg tablet [generic] 400 mg By Mouth Twice daily For MRSA INFECTION L BKA 400 mg 08/28 Inactiv e 2023 82815 47937 0 Twice daily By Mouth False Brimonidine 0.1 % eye drops [generic] 1 drop Both Eyes Twice daily For glaucoma 1 drop 2023 Active 2023 13728 43773 0 Twice daily Both Eyes False Metoprolol succinate ER 50 mg tablet,exte nded release 24 hr [generic] 50 mg By Mouth Once daily HOLD FOR SBP <100, or pulse <60 For HTN 50 mg 2023 Active 2023 93514 48035 1 Once daily By Mouth False Amlodipine 2.5 mg tablet [generic] 2.5 mg By Mouth Once daily For HTN 2.5 mg 2023 Active 2023 33136 72109 5 Once daily By Mouth False Docusate sodium 100 mg capsule [generic] 100mg By Mouth Twice daily as needed For constipation HOLD FOR LOOSE STOOLS 100mg 2023 Active 2023 77685 14888 1 Twice daily as needed By Mouth False Atorvastati n 40 mg tablet [generic] 40mg By Mouth Once daily For HDL 40mg 08/26 Inactiv e 2023 86638 65426 5 Once daily By Mouth False Tylenol 325 mg tablet 2 tabs By Mouth Every 4 hours as needed For Pain DO NOT EXCEED 3000 MG APAP/24 Hours 2 tabs 2023 Active 2023 29590 70894 0 Every 4 hours as needed By Mouth False Tylenol 325 mg tablet 2 tabs By Mouth Every 4 hours as needed For Fever >100 DO NOT EXCEED 3000 MG APAP/24 Hours 2 tabs 2023 Active 2023 74870 34100 0 Every 4 hours as needed By Mouth False Dulcolax (bisacodyl) 10 mg rectal suppository One Suppository per rectum PRN if Milk of Magnisia ineffective. Give on day 5 of no BM 1 sup 2023 Active 2023 85157 15932 1 Daily as needed Rectal False Fleet Enema 19 gram-7 gram/118 mL Administer per rectum PRN one time if dulcolax suppository not effective. Give on day 6 of no BM 1 2023 Active 2023 00784 31111 6 Daily as needed Rectal False Dextrose 50 % in water (D50W) intravenous solution [generic] Dextrose 50% evonne 20-50 ml (slow push) Intravenous if Glucagon not effective after 15 minutes. CALL 911 for ED Evaluation. 50% evonne 2023 Active 2023 18102 49646 9 Intrav enous False Glucagon (HCl) Emergency Kit 1 mg solution for injection Administer Glucagon 1 mg Intramuscular if 15 minutes after GLucose Gel is administered Glucose remains less than 70 1 mg 2023 Active 2023 57080 87515 2 Intram uscula r False Glucose Gel 40 % oral gel [Dextrose] PRN If resident is unable to swallow (with or without symptoms) and Glucose results less than 70 give GLucose 40% Gel 1 tube orally - Recheck Glucose 15 minutes after administratio n. 1 tube 2023 Active 2023 28565 55336 8 By Mouth False Milk of Magnesia 400 mg/5 mL oral suspension [Magnesium hydroxide] PRN 30ml By Mouth Daily as needed for constipation one time daily if no BM, on day 4 of no BM (PRN refer to instructions) For Constipation 30 mL 2023 Active 2023 55186 35185 6 Daily as needed By Mouth False Atorvastati n 40 mg tablet [generic] 08/26 Inactiv e 2023 01564 27960 5 Atorvastati n 40 mg tablet [generic] 40mg By Mouth Once daily For HDL 40mg 2023 Active 2023 76050 88461 5 Once daily By Mouth False Insulin aspart (U-100) 100 unit/mL (3 mL) subcutaneou s pen [generic] 15 units Subcutaneous 1 time For dm 15 units 08/26 Inactiv e 2023 15757 65115 5 1 time Subcut aneous False Humalog KwikPen (U-100) Insulin 100 unit/mL subcutaneou s 15 units Subcutaneous 1 time For dm 15 units 08/27 Inactiv e 2023 11763 58212 9 1 time Subcut aneous False Linezolid 600 mg tablet [generic] 600 mg By Mouth Every 12 hours For MRSA INFECTION L BKA 600 mg 09/06 Inactiv e 2023 51647 63316 1 Every 12 hours By Mouth False Cefpodoxime 200 mg tablet [generic] 400 mg By Mouth Twice daily For MRSA INFECTION L BKA 400 mg 08/31 Inactiv e 2023 42815 73368 0 Twice daily By Mouth False Senna 8.6 mg tablet 8.6 mg By Mouth Once daily For Constipation 8.6 mg 09/07 Inactiv e 2023 25688 03195 1 Once daily By Mouth False Humalog [...] abnormalities . Per Carb 2023 Active 2023 52508 86819 9 4 times a day Subcut aneous False Alendronate 35 mg tablet [generic] 08/31 Inactiv e 2023 62372 28732 5 Alendronate 35 mg tablet [generic] 35mg By Mouth Every week For Osteoporosis 35mg 2023 Active 2023 53403 66241 5 Every week By Mouth False ProSource 10 gram-100 kcal/30 mL oral liquid 30 ml By Mouth Once daily For wound healing 30 ml 2023 Active 2023 74100 57500 2 Once daily By Mouth False Clotrimazol e 1 % topical cream [generic] 1 applicaiton Topical Twice daily For tinea, apply to groin rash after cleansing and throughouly drying. Can discontinue order 3 days after rash resolves. 1 applica stacy 09/19 Active 2023 02147 35746 0 Twice daily Topica l False MAGIC MIX 1:1:1:1 : ZINC OXIDE EXTERNAL OINTMENT 40%; HYDROCOTISO NE EXTERNAL CREAM 1%; NYSTATIN EXTERNAL CREAM [id number]/GM; SILVADENE CREAM 1% Every shift Apply topically to MASD area on coccyx/buttoc ks each shift and as needed for incontinence care For MASD on coccyx layer 2023 Active 2023 Every shift Topica l False Senna 8.6 mg tablet 8.6 mg By Mouth Once daily For Constipation 8.6 mg 09/07 Inactiv e 2023 61670 96209 1 Once daily By Mouth False Senna 8.6 mg tablet 8.6 mg By Mouth Once daily As Needed For Constipation 8.6 mg 2023 Active 2023 16272 46547 1 Once daily By Mouth False BD AutoShield Duo Pen Needle 30 gauge x 3/16in 1 pen needle Subcutaneous 4 times a day For DM 1 pen needle 2023 Active 2023 65267 84120 5 4 times a day Subcut aneous False Hydrocortis one 1 % topical ointment [generic] 1 application Topical Twice daily For tinea *mix 1:1 with clotrimazole cream and apply to clean/dry groin rash 1 applica peggy 09/19 Active 2023 92003 42994 6 Twice daily Topica l False Humalog KwikPen (U-100) Insulin 100 unit/mL subcutaneou s 08/31 Inactiv e 2023 22348 52645 9 MediHoney HCS 4 1/2in X 4 1/2in bandage Cleanse area with NSS, apply one medihoney hydrocolloid dressing, non adherent dressing, kerlix secure with paper tape daily. For wound stage III 1 2023 Active 2023 56688 29318 1 Once daily Topica l False Problems Code Description Start Date End Date Status D64.9 Anemia, unspecified 08/25/2024 Activ e I25.10 Atherosclerotic hear t disease of [place] coronary artery without angina pectoris 08/25/2024 Active [...] Temperature SpO2 Blood Sugar Pulse Respirations 004 48173 8 67.00 mm[Hg] - Sitting 145.00 mm[Hg] - Sitting 98.50 Forehead Scan 96.00 % 81.00/ min 16.00/min 60634 004 09246 2 67.00 mm[Hg] - Sitting 145.00 mm[Hg] - Sitting 98.50 Tympanic 81.00/ min 16.00/min 25899 004 16412 5 56.00 mm[Hg] - Sitting 142.00 mm[Hg] - Sitting 136.40 NI 100.20 Tympanic 96.00 % 92.00/ min 18.00/min 88896 004 12466 6 75518 004 84773 4 143.00 mg/dL 004 68343 0 97.80 Tympanic 52904 005 11943 7 60.00 mm[Hg] - Sitting 140.00 mm[Hg] - Sitting 98.00 Tympanic 84.00/ min 18.00/min 03016 005 61833 0 63.00 mm[Hg] - Sitting 141.00 mm[Hg] - Sitting 98.20 Tympanic 92.00 % 63.00/ min 16.00/min 28066 005 33968 8 69.00 mm[Hg] - Sitting 106.00 mm[Hg] - Sitting 97.20 Tympanic 21740 005 06885 7 69.00/ min 16.00/min 42848 005 69534 3 69.00 mm[Hg] - Sitting 106.00 mm[Hg] - Sitting 98.20 Tympanic 69.00/ min 16.00/min 73474 005 67551 1 367.00 mg/dL 26273 005 93494 2 97.20 Tympanic 70149 005 35866 4 97.20 Tympanic 38380 005 96504 0 69.00 mm[Hg] - Sitting 106.00 mm[Hg] - Sitting 69.00/ min 09019 005 82477 3 452.00 mg/dL 97299 005 86996 3 452.00 mg/dL 41291 005 36417 5 352.00 mg/dL 61080 005 04663 3 352.00 mg/dL 01414 005 17941 7 98.20 Tympanic 35652 005 32950 3 101.00 mg/dL 16737 005 8 101.00 mg/dL 73432 006 73934 4 66.00 mm[Hg] - Sitting 107.00 mm[Hg] - Sitting 98.00 Tympanic 66.00/ min 18.00/min 006 12454 0 62.00 mm[Hg] - Sitting 162.00 mm[Hg] - Sitting 98.20 Tympanic 96.00 % 60.00/ min 16.00/min 006 42359 4 98.00 Tympanic Immunizations Vaccine Date Status COVID-19 09/20/2023 Completed Other 10/08/2023 Completed Shingles 05/27/2011 Completed Tetanus 04/13/2022 Completed TDaP 04/13/2022 Completed Shingles 2 10/05/2018 Completed
--- OUTSIDE RECORDS SUMMARY | 2024-10-03 11:08 | External Medical Summary | Continuity Of Care Document ---
Author Name Unknown Address [address] [address] Organization [facility] () Care Team Providers Care Installers Mechanical Name Role Phone DO Machado Amy Primary Care Provider [phone] Allergies Allergy Reaction Start Date End Date [...] 3 0.1 mL 08/29 Inactiv e 2023 46934 74221 0 1 time Intrad ermal False Tubersol 5 tub. unit/0.1 mL intradermal injection solution [Tuberculin PPD] 0.1mL Intradermal 1 time For PPD 2nd Step Give 2nd Step PPD Day 1 and Read results Day 3 (schedule 7 days after 1st READ) 0.1mL 09/08 Inactiv e 2023 32476 13436 0 1 time Intrad ermal False Humalog [...] order For Diabetes 08/25 Inactiv e 2023 13388 54135 9 4 times a day Subcut aneous False Aspirin 325 mg tablet [generic] 325 By Mouth Twice daily For Anticoagulati on 325 09/25 Active 2023 37299 92237 1 Twice daily By Mouth False Ferrous sulfate 325 mg (65 mg iron) tablet [generic] 325 By Mouth Once daily For anemia 325 2023 Active 2023 58491 91403 5 Once daily By Mouth False Linezolid 600 mg tablet [generic] 600 mg By Mouth Every 12 hours For MRSA INFECTION L BKA 600 mg 08/25 Inactiv e 2023 60217 05276 1 Every 12 hours By Mouth False Cefpodoxime 200 mg tablet [generic] 400 mg By Mouth Twice daily For MRSA INFECTION L BKA 400 mg 08/25 Inactiv e 2023 49029 76302 0 Twice daily By Mouth False Coenzyme Q10 100 mg tablet [generic] 100 mg By Mouth Once daily For SUPP 100 mg 2023 Active 2023 84328 81199 0 Once daily By Mouth False Levothyroxi ne 50 mcg tablet [generic] 50mcg By Mouth Once daily For hypothyroidis m 50mcg 2023 Active 2023 59915 96646 0 Once daily By Mouth False One A Day Men Complete 240 mcg-25 mcg-300 mcg tablet 1 tab By Mouth Once daily For supplement 1 tab 2023 Active 2023 15427 24155 1 Once daily By Mouth False Cholecalcif adalberto (vitamin D3) 50 mcg (2,000 unit) tablet [generic] 1 TAB By Mouth Once daily For SUPP 1 TAB 2023 Active 2023 96134 40195 1 Once daily By Mouth False Cetirizine 10 mg tablet [generic] 1 TAB By Mouth At bedtime For Allergies 1 TAB 2023 Active 2023 67744 70616 0 At bedtime By Mouth False Timolol maleate 0.25 % eye drops [generic] 1 drop Both Eyes Twice daily For glaucoma 1 drop 2023 0000 0000 Active 2023 62049 26508 5 Twice daily Both Eyes False Alendronate 35 mg tablet [generic] 35mg By Mouth Every week For SIADH 35mg 08/31 Inactiv e 2023 38121 62878 5 Every week By Mouth False Lantus Solostar U-100 Insulin 100 unit/mL (3 mL) subcutaneou s pen 18 units Subcutaneous Every morning For DIABETES 18 units 08/25 Inactiv e 2023 69579 53626 0 Every morning Subcut aneous False Lantus Solostar U-100 Insulin 100 unit/mL (3 mL) subcutaneou s pen 18 units Subcutaneous Every morning For DIABETES 18 units 2023 Active 2023 01667 54535 0 Every morning Subcut aneous False Linezolid 600 mg tablet [generic] 600 mg By Mouth Every 12 hours For MRSA INFECTION L BKA 600 mg 08/28 Inactiv e 2023 05181 97544 1 Every 12 hours By Mouth False [...] order For Diabetes 08/31 Inactiv e 2023 94766 97870 9 4 times a day Subcut aneous False Cefpodoxime 200 mg tablet [generic] 400 mg By Mouth Twice daily For MRSA INFECTION L BKA 400 mg 08/28 Inactiv e 2023 58593 09863 0 Twice daily By Mouth False Brimonidine 0.1 % eye drops [generic] 1 drop Both Eyes Twice daily For glaucoma 1 drop 2023 Active 2023 76830 26309 0 Twice daily Both Eyes False Metoprolol succinate ER 50 mg tablet,exte nded release 24 hr [generic] 50 mg By Mouth Once daily HOLD FOR SBP <100, or pulse <60 For HTN 50 mg 2023 Active 2023 70365 99964 1 Once daily By Mouth False Amlodipine 2.5 mg tablet [generic] 2.5 mg By Mouth Once daily For HTN 2.5 mg 2023 Active 2023 38864 77836 5 Once daily By Mouth False Docusate sodium 100 mg capsule [generic] 100mg By Mouth Twice daily as needed For constipation HOLD FOR LOOSE STOOLS 100mg 2023 Active 2023 79646 46737 1 Twice daily as needed By Mouth False Atorvastati n 40 mg tablet [generic] 40mg By Mouth Once daily For HDL 40mg 08/26 Inactiv e 2023 31672 02464 5 Once daily By Mouth False Tylenol 325 mg tablet 2 tabs By Mouth Every 4 hours as needed For Pain DO NOT EXCEED 3000 MG APAP/24 Hours 2 tabs 2023 Active 2023 83148 60131 0 Every 4 hours as needed By Mouth False Tylenol 325 mg tablet 2 tabs By Mouth Every 4 hours as needed For Fever >100 DO NOT EXCEED 3000 MG APAP/24 Hours 2 tabs 2023 Active 2023 10163 53345 0 Every 4 hours as needed By Mouth False Dulcolax (bisacodyl) 10 mg rectal suppository One Suppository per rectum PRN if Milk of Magnisia ineffective. Give on day 5 of no BM 1 sup 2023 Active 2023 85485 51509 1 Daily as needed Rectal False Fleet Enema 19 gram-7 gram/118 mL Administer per rectum PRN one time if dulcolax suppository not effective. Give on day 6 of no BM 1 2023 Active 2023 00188 71889 6 Daily as needed Rectal False Dextrose 50 % in water (D50W) intravenous solution [generic] Dextrose 50% evonne 20-50 ml (slow push) Intravenous if Glucagon not effective after 15 minutes. CALL 911 for ED Evaluation. 50% evonne 2023 Active 2023 43693 39851 9 Intrav enous False Glucagon (HCl) Emergency Kit 1 mg solution for injection Administer Glucagon 1 mg Intramuscular if 15 minutes after GLucose Gel is administered Glucose remains less than 70 1 mg 2023 Active 2023 70538 54968 2 Intram uscula r False Glucose Gel 40 % oral gel [Dextrose] PRN If resident is unable to swallow (with or without symptoms) and Glucose results less than 70 give GLucose 40% Gel 1 tube orally - Recheck Glucose 15 minutes after administratio n. 1 tube 2023 Active 2023 14665 73680 8 By Mouth False Milk of Magnesia 400 mg/5 mL oral suspension [Magnesium hydroxide] PRN 30ml By Mouth Daily as needed for constipation one time daily if no BM, on day 4 of no BM (PRN refer to instructions) For Constipation 30 mL 2023 Active 2023 06878 77129 6 Daily as needed By Mouth False Atorvastati n 40 mg tablet [generic] 08/26 Inactiv e 2023 96997 46812 5 Atorvastati n 40 mg tablet [generic] 40mg By Mouth Once daily For HDL 40mg 2023 Active 2023 11535 31139 5 Once daily By Mouth False Insulin aspart (U-100) 100 unit/mL (3 mL) subcutaneou s pen [generic] 15 units Subcutaneous 1 time For dm 15 units 08/26 Inactiv e 2023 57646 94901 5 1 time Subcut aneous False Humalog KwikPen (U-100) Insulin 100 unit/mL subcutaneou s 15 units Subcutaneous 1 time For dm 15 units 08/27 Inactiv e 2023 65554 99074 9 1 time Subcut aneous False Linezolid 600 mg tablet [generic] 600 mg By Mouth Every 12 hours For MRSA INFECTION L BKA 600 mg 09/06 Inactiv e 2023 66170 48485 1 Every 12 hours By Mouth False Cefpodoxime 200 mg tablet [generic] 400 mg By Mouth Twice daily For MRSA INFECTION L BKA 400 mg 08/31 Inactiv e 2023 18035 39657 0 Twice daily By Mouth False Senna 8.6 mg tablet 8.6 mg By Mouth Once daily For Constipation 8.6 mg 09/07 Inactiv e 2023 96157 91405 1 Once daily By Mouth False Humalog [...] abnormalities . Per Carb 2023 Active 2023 56067 63677 9 4 times a day Subcut aneous False Alendronate 35 mg tablet [generic] 08/31 Inactiv e 2023 33025 35787 5 Problems Code Description Start Date End [...] weight Temperature SpO2 Blood Sugar Pulse Respirations 35371 8 67.00 mm[Hg] - Sitting 145.00 mm[Hg] - Sitting 98.50 Forehead Scan 96.00 % 81.00/ min 16.00/min 80311 2 67.00 mm[Hg] - Sitting 145.00 mm[Hg] - Sitting 98.50 Tympanic 81.00/ min 16.00/min 42011 5 56.00 mm[Hg] - Sitting 142.00 mm[Hg] - Sitting 136.40 NI 100.20 Tympanic 96.00 % 92.00/ min 18.00/min 98510 004 53890 6 56820 004 74016 4 143.00 mg/dL 03045 004 0 97.80 Tympanic 60236 005 66607 7 60.00 mm[Hg] - Sitting 140.00 mm[Hg] - Sitting 98.00 Tympanic 84.00/ min 18.00/min 52682 005 98366 0 63.00 mm[Hg] - Sitting 141.00 mm[Hg] - Sitting 98.20 Tympanic 92.00 % 63.00/ min 16.00/min 71135 005 91798 8 69.00 mm[Hg] - Sitting 106.00 mm[Hg] - Sitting 97.20 Tympanic 82606 005 33422 7 69.00/ min 16.00/min 83251 005 47057 3 69.00 mm[Hg] - Sitting 106.00 mm[Hg] - Sitting 98.20 Tympanic 69.00/ min 16.00/min 64950 005 43443 1 367.00 mg/dL 16626 005 67038 2 97.20 Tympanic 45204 005 38436 4 97.20 Tympanic 76613 005 81876 0 69.00 mm[Hg] - Sitting 106.00 mm[Hg] - Sitting 69.00/ min 73014 005 43168 3 452.00 mg/dL 43317 005 64448 3 452.00 mg/dL 68885 005 27093 5 352.00 mg/dL 66646 005 67337 3 352.00 mg/dL 69666 005 08839 7 98.20 Tympanic 94083 005 76423 3 101.00 mg/dL 72656 005 66460 8 101.00 mg/dL 00267 006 59037 4 66.00 mm[Hg] - Sitting 107.00 mm[Hg] - Sitting 98.00 Tympanic 66.00/ min 18.00/min 87997 006 00599 0 62.00 mm[Hg] - Sitting 162.00 mm[Hg] - Sitting 98.20 Tympanic 96.00 % 60.00/ min 16.00/min 38926 006 46581 4 62.00 mm[Hg] - Sitting 162.00 mm[Hg] - Sitting 98.00 Tympanic 70.00/ min 18.00/min 96061 006 07651 8 62.00 mm[Hg] - Sitting 162.00 mm[Hg] - Sitting 98.20 Tympanic 70.00/ min 18.00/min 50487 006 41265 2 66.00 mm[Hg] - Sitting 132.00 mm[Hg] - Sitting 98.60 Tympanic 74.00/ min 16.00/min 06526 006 51929 5 159.00 mg/dL 53363 006 19137 1 159.00 mg/dL 66349 006 27038 8 98.00 Tympanic 60849 006 40096 2 62.00 mm[Hg] - Sitting 162.00 mm[Hg] - Sitting 70.00/ min 08967 006 40035 7 264.00 mg/dL 13983 006 25688 7 264.00 mg/dL 59607 006 12064 4 196.00 mg/dL 97871 006 07369 3 98.20 Tympanic 24711 006 30794 6 271.00 mg/dL 51684 007 45062 3 97.20 Tympanic 48854 007 85749 2 63.00 mm[Hg] - Sitting 132.00 mm[Hg] - Sitting 98.50 Tympanic 94.00 % 66.00/ min 16.00/min 19156 007 17563 5 188.00 mg/dL 09401 007 08432 2 188.00 mg/dL 55658 007 24074 2 188.00 mg/dL 96176 007 95313 7 97.20 Tympanic 14903 007 98636 6 97.20 Tympanic 85543 007 34158 5 67.00 mm[Hg] - Sitting 152.00 mm[Hg] - Sitting 68.00/ min 03054 007 50154 0 141.00 mg/dL 85231 007 13249 3 141.00 mg/dL 48095 007 83153 1 366.00 mg/dL 34215 007 08849 7 366.00 mg/dL 02324 007 48728 7 98.00 Tympanic 03074 007 24678 6 324.00 mg/dL 18653 007 70133 3 98.00 Tympanic 14658 007 23642 7 324.00 mg/dL 03409 008 47767 0 98.00 Tympanic 18316 008 10085 2 97.90 Tympanic 63618 008 10173 0 98.20 Tympanic 90074 008 23449 0 73.00 mm[Hg] - Sitting 156.00 mm[Hg] - Sitting 98.60 Tympanic 99.00 % 66.00/ min 20.00/min 42920 008 06364 5 137.00 mg/dL 04230 008 05747 7 137.00 mg/dL 98056 008 25112 2 97.90 Tympanic 85549 008 91153 1 137.00 mg/dL 28699 008 37509 8 97.90 Tympanic 27540 008 82262 5 67.00 mm[Hg] - Sitting 124.00 /min 34373 008 49182 6 212.00 mg/dL 49088 008 59425 6 212.00 mg/dL 89820 008 63972 9 317.00 mg/dL 85352 008 25158 4 317.00 mg/dL 62400 008 60913 8 252.00 mg/dL 56611 008 78431 0 98.70 Tympanic 36713 008 45546 7 252.00 mg/dL 89275 008 84981 3 98.70 Tympanic 81584 009 31919 9 98.70 Tympanic 67355 009 12460 3 98.20 Tympanic 41020 009 50199 5 98.40 Tympanic 44116 009 27970 5 57.00 mm[Hg] - Sitting 129.00 mm[Hg] - Sitting 98.30 Tympanic 97.00 % 65.00/ min 18.00/min 38453 009 75575 1 255.00 mg/dL 55643 009 44634 4 255.00 mg/dL 94580 009 30712 5 98.20 Tympanic 35660 009 81234 0 255.00 mg/dL 74971 009 90948 0 98.20 Tympanic 28344 009 77662 4 63.00 mm[Hg] - Lying Down 102.00 mm[Hg] - Lying Down 58.00/ min 70234 009 66843 0 167.00 mg/dL 64996 009 00112 1 167.00 mg/dL 49619 009 90306 2 164.00 mg/dL 59458 009 06084 1 164.00 mg/dL 96767 009 36032 5 208.00 mg/dL 93023 010 03758 3 98.40 Tympanic 32860 010 84597 5 98.40 Tympanic 39437 010 62941 7 66 [place] 28043 010 41805 4 60.00 mm[Hg] - Sitting 143.00 mm[Hg] - Sitting 98.90 Tympanic 98.00 % 67.00/ min 18.00/min 16811 010 55351 2 214.00 mg/dL 13282 010 59713 0 214.00 mg/dL 16796 010 63426 7 214.00 mg/dL 20822 010 66117 6 64.00 mm[Hg] - Sitting 110.00 mm[Hg] - Sitting 72.00/ min 64683 010 66986 7 98.40 Tympanic 69134 010 63324 1 212.00 mg/dL 13414 010 49897 2 212.00 mg/dL 97728 010 84819 1 115.00 mg/dL 54528 010 43803 0 115.00 mg/dL 84969 010 38305 4 98.50 Tympanic 95216 010 73746 4 150.00 mg/dL 14893 010 91357 0 150.00 mg/dL 53508 011 62178 9 98.60 Tympanic 70218 011 57047 1 67.00 mm[Hg] - Sitting 144.00 mm[Hg] - Sitting 98.20 Tympanic 98.00 % 61.00/ min 18.00/min 93102 011 30295 7 290.00 mg/dL 09125 011 31518 2 290.00 mg/dL 34869 011 32682 2 290.00 mg/dL 13346 011 43195 7 54.00 mm[Hg] - Sitting 136.00 mm[Hg] - Sitting 101.00 /min 65510 011 89889 7 98.60 Tympanic 00983 011 67305 5 240.00 mg/dL 17582 011 96877 1 240.00 mg/dL 19513 011 30451 1 156.00 mg/dL 88057 011 85123 9 156.00 mg/dL 75722 011 52641 0 97.80 Tympanic 54134 011 03790 8 343.00 mg/dL 31934 012 13059 9 97.90 Tympanic 85342 012 57975 2 466.00 mg/dL 14150 012 27031 1 466.00 mg/dL 09468 012 29244 3 466.00 mg/dL 60246 012 27124 8 97.90 Tympanic 87798 012 92195 8 56.00 mm[Hg] - Sitting 96.00 mm[Hg] - Sitting 61.00/ min 04447 012 36794 7 350.00 mg/dL 94811 012 22043 5 350.00 mg/dL 45435 012 23514 6 111.00 mg/dL 04236 012 18439 0 111.00 mg/dL 60102 012 46266 5 98.40 Tympanic 31372 012 26285 6 114.00 mg/dL 25539 013 96933 4 74.00 mm[Hg] - Sitting 112.00 mm[Hg] - Sitting 98.40 Tympanic 70.00/ min 18.00/min 16022 013 50561 8 244.00 mg/dL 93852 013 74631 7 244.00 mg/dL 20469 013 20386 1 244.00 mg/dL 48651 013 01879 1 98.20 Tympanic 24379 013 58995 7 72.00 mm[Hg] - Sitting 119.00 mm[Hg] - Sitting 76.00/ min 55977 013 97150 7 253.00 mg/dL 33205 013 21266 4 253.00 mg/dL 91696 013 24759 9 156.00 mg/dL 39076 013 06669 5 156.00 mg/dL 28867 013 56317 4 97.90 Tympanic 88057 013 89395 5 189.00 mg/dL 49848 014 33040 9 98.10 Tympanic 05327 014 15095 0 61.00 mm[Hg] - Sitting 139.00 mm[Hg] - Sitting 98.20 Forehead Scan 99.00 % 66.00/ min 18.00/min 33040 014 18391 3 169.00 mg/dL 52434 014 70050 3 98.10 Tympanic 05696 014 38270 3 75.00 mm[Hg] - Sitting 121.00 mm[Hg] - Sitting 71.00/ min 32395 014 77571 9 221.00 mg/dL 33373 014 77625 9 62.00 mg/dL 31033 014 33236 5 62.00 mg/dL 14016 014 08937 8 156.00 mg/dL 40962 014 83069 6 98.10 Tympanic 39900 014 69900 7 156.00 mg/dL 16374 015 23281 4 69074 015 99708 7 62.00 mm[Hg] - Sitting 142.00 mm[Hg] - Sitting 98.20 Tympanic 99.00 % 67.00/ min 18.00/min 27640 015 89134 9 120.00 mg/dL 63962 015 30062 7 98.00 Tympanic 94068 015 06231 2 82.00 mm[Hg] - Sitting 119.00 /min 58012 015 44969 9 110.00 mg/dL 95001 015 65382 6 104.00 mg/dL 86364 015 94341 0 100.00 mg/dL 23909 015 98184 2 98.10 Tympanic 74600 015 98131 6 100.00 mg/dL 12402 016 14695 2 67.00 mm[Hg] - Sitting 147.00 mm[Hg] - Sitting 99.00 Tympanic 99.00 % 78.00/ min 20.00/min 49538 016 59111 5 158.00 mg/dL 70340 016 19332 1 158.00 mg/dL 88294 016 65729 2 158.00 mg/dL 64518 016 06400 0 66.00 mm[Hg] - Sitting 121.00 mm[Hg] - Sitting 74.00/ min 44673 016 00230 1 97.00 mg/dL 85749 016 19096 5 97.00 mg/dL 17068 016 04745 4 78.00 mg/dL 73723 016 68899 6 78.00 mg/dL 04581 016 83676 5 248.00 mg/dL 50028 016 43974 8 248.00 mg/dL 11440 017 29343 3 54.00 mm[Hg] - Sitting 142.00 mm[Hg] - Sitting 98.30 Tympanic 99.00 % 76.00/ min 18.00/min 35564 017 50616 4 267.00 mg/dL 24847 017 91055 6 73.00 mm[Hg] - Sitting 109.00 mm[Hg] - Sitting 70.00/ min 46168 017 30973 1 184.00 mg/dL 71567 017 78449 5 184.00 mg/dL 85219 017 15711 9 248.00 mg/dL 16443 017 04656 8 299.00 mg/dL 91360 017 55385 3 299.00 mg/dL 93595 018 51041 7 50.00 mm[Hg] - Sitting 125.00 mm[Hg] - Sitting 98.30 Tympanic 98.00 % 76.00/ min 16.00/min 65569 018 93442 3 168.00 mg/dL 94732 018 55815 0 75.00 mm[Hg] - Sitting 121.00 mm[Hg] - Sitting 70.00/ min 48415 018 57063 7 264.00 mg/dL 55264 018 48371 6 132.00 mg/dL 42851 018 50744 6 154.00 mg/dL 36158 018 70733 6 154.00 mg/dL 15257 019 36429 4 63.00 mm[Hg] - Sitting 147.00 mm[Hg] - Sitting 98.50 Tympanic 99.00 % 69.00/ min 18.00/min 62751 019 42042 9 159.00 mg/dL 77643 019 31859 8 73.00 mm[Hg] - Sitting 110.00 mm[Hg] - Sitting 72.00/ min 81886 019 85179 4 191.00 mg/dL 88066 019 04591 8 70.00 mg/dL 31339 019 68518 4 70.00 mg/dL 85918 019 05032 6 198.00 mg/dL 24485 019 41592 0 198.00 mg/dL 04970 020 36456 2 59.00 mm[Hg] - Sitting 131.00 mm[Hg] - Sitting 98.90 Tympanic 99.00 % 69.00/ min 18.00/min 34312 020 13511 7 299.00 mg/dL 68116 020 75155 0 62.00 mm[Hg] - Sitting 132.00 mm[Hg] - Sitting 68.00/ min 79068 020 55768 3 299.00 mg/dL 70751 020 53216 3 299.00 mg/dL 36837 020 30565 9 220.00 mg/dL 51678 020 93322 1 220.00 mg/dL 68320 020 59134 1 270.00 mg/dL 88753 020 92279 4 270.00 mg/dL 54274 020 00098 9 143.00 mg/dL 10713 020 31339 4 143.00 mg/dL 85387 021 79032 0 140.00 mg/dL 76100 021 74572 0 67.00 mm[Hg] - Sitting 130.00 mm[Hg] - Sitting 68.00/ min 22687 021 82754 8 140.00 mg/dL 60819 021 59069 6 140.00 mg/dL 45256 021 03431 8 156.00 mg/dL 46231 021 68875 1 156.00 mg/dL Immunizations Vaccine Date Status COVID-19 09/20/2023 Completed Other 10/08/2023 Completed Shingles 05/27/2011 Completed Tetanus 04/13/2022 Completed TDaP 04/13/2022 Completed Shingles 2 10/05/2018 Completed
--- OUTSIDE RECORDS SUMMARY | 2024-10-03 11:08 | External Medical Summary | Continuity Of Care Document ---
Author Name Unknown Address [address] [address] Organization [facility] () Care Team Providers Care Program Production Specialist Name Role Phone DO Machado Amy Primary Care Provider [phone] Allergies Allergy Reaction Start Date End Date [...] 3 0.1 mL 08/29 Inactiv e 2023 64606 51136 0 1 time Intrad ermal False Tubersol 5 tub. unit/0.1 mL intradermal injection solution [Tuberculin PPD] 0.1mL Intradermal 1 time For PPD 2nd Step Give 2nd Step PPD Day 1 and Read results Day 3 (schedule 7 days after 1st READ) 0.1mL 09/08 Inactiv e 2023 79251 01441 0 1 time Intrad ermal False Humalog [...] order For Diabetes 08/25 Inactiv e 2023 49600 71702 9 4 times a day Subcut aneous False Aspirin 325 mg tablet [generic] 325 By Mouth Twice daily For Anticoagulati on 325 09/25 Active 2023 99515 95225 1 Twice daily By Mouth False Ferrous sulfate 325 mg (65 mg iron) tablet [generic] 325 By Mouth Once daily For anemia 325 2023 Active 2023 72742 32387 5 Once daily By Mouth False Linezolid 600 mg tablet [generic] 600 mg By Mouth Every 12 hours For MRSA INFECTION L BKA 600 mg 08/25 Inactiv e 2023 30260 85189 1 Every 12 hours By Mouth False Cefpodoxime 200 mg tablet [generic] 400 mg By Mouth Twice daily For MRSA INFECTION L BKA 400 mg 08/25 Inactiv e 2023 83074 07123 0 Twice daily By Mouth False Coenzyme Q10 100 mg tablet [generic] 100 mg By Mouth Once daily For SUPP 100 mg 2023 Active 2023 71933 21615 0 Once daily By Mouth False Levothyroxi ne 50 mcg tablet [generic] 50mcg By Mouth Once daily For hypothyroidis m 50mcg 2023 Active 2023 04761 92720 0 Once daily By Mouth False One A Day Men Complete 240 mcg-25 mcg-300 mcg tablet 1 tab By Mouth Once daily For supplement 1 tab 2023 Active 2023 52524 65803 1 Once daily By Mouth False Cholecalcif adalberto (vitamin D3) 50 mcg (2,000 unit) tablet [generic] 1 TAB By Mouth Once daily For SUPP 1 TAB 2023 Active 2023 02209 32542 1 Once daily By Mouth False Cetirizine 10 mg tablet [generic] 1 TAB By Mouth At bedtime For Allergies 1 TAB 2023 Active 2023 90754 09178 0 At bedtime By Mouth False Timolol maleate 0.25 % eye drops [generic] 1 drop Both Eyes Twice daily For glaucoma 1 drop 2023 0000 0000 Active 2023 42903 17502 5 Twice daily Both Eyes False Alendronate 35 mg tablet [generic] 35mg By Mouth Every week For SIADH 35mg 08/31 Inactiv e 2023 31141 68116 5 Every week By Mouth False Lantus Solostar U-100 Insulin 100 unit/mL (3 mL) subcutaneou s pen 18 units Subcutaneous Every morning For DIABETES 18 units 08/25 Inactiv e 2023 49887 20854 0 Every morning Subcut aneous False Lantus Solostar U-100 Insulin 100 unit/mL (3 mL) subcutaneou s pen 18 units Subcutaneous Every morning For DIABETES 18 units 2023 Active 2023 59519 38670 0 Every morning Subcut aneous False Linezolid 600 mg tablet [generic] 600 mg By Mouth Every 12 hours For MRSA INFECTION L BKA 600 mg 08/28 Inactiv e 2023 51301 72426 1 Every 12 hours By Mouth False [...] order For Diabetes 08/31 Inactiv e 2023 40297 86083 9 4 times a day Subcut aneous False Cefpodoxime 200 mg tablet [generic] 400 mg By Mouth Twice daily For MRSA INFECTION L BKA 400 mg 08/28 Inactiv e 2023 11986 61336 0 Twice daily By Mouth False Brimonidine 0.1 % eye drops [generic] 1 drop Both Eyes Twice daily For glaucoma 1 drop 2023 Active 2023 46812 61497 0 Twice daily Both Eyes False Metoprolol succinate ER 50 mg tablet,exte nded release 24 hr [generic] 50 mg By Mouth Once daily HOLD FOR SBP <100, or pulse <60 For HTN 50 mg 2023 Active 2023 06529 36438 1 Once daily By Mouth False Amlodipine 2.5 mg tablet [generic] 2.5 mg By Mouth Once daily For HTN 2.5 mg 2023 Active 2023 71617 17107 5 Once daily By Mouth False Docusate sodium 100 mg capsule [generic] 100mg By Mouth Twice daily as needed For constipation HOLD FOR LOOSE STOOLS 100mg 2023 Active 2023 47366 77745 1 Twice daily as needed By Mouth False Atorvastati n 40 mg tablet [generic] 40mg By Mouth Once daily For HDL 40mg 08/26 Inactiv e 2023 50643 05145 5 Once daily By Mouth False Tylenol 325 mg tablet 2 tabs By Mouth Every 4 hours as needed For Pain DO NOT EXCEED 3000 MG APAP/24 Hours 2 tabs 2023 Active 2023 59514 54336 0 Every 4 hours as needed By Mouth False Tylenol 325 mg tablet 2 tabs By Mouth Every 4 hours as needed For Fever >100 DO NOT EXCEED 3000 MG APAP/24 Hours 2 tabs 2023 Active 2023 43029 96722 0 Every 4 hours as needed By Mouth False Dulcolax (bisacodyl) 10 mg rectal suppository One Suppository per rectum PRN if Milk of Magnisia ineffective. Give on day 5 of no BM 1 sup 2023 Active 2023 48472 92980 1 Daily as needed Rectal False Fleet Enema 19 gram-7 gram/118 mL Administer per rectum PRN one time if dulcolax suppository not effective. Give on day 6 of no BM 1 2023 Active 2023 02055 71757 6 Daily as needed Rectal False Dextrose 50 % in water (D50W) intravenous solution [generic] Dextrose 50% evonne 20-50 ml (slow push) Intravenous if Glucagon not effective after 15 minutes. CALL 911 for ED Evaluation. 50% evonne 2023 Active 2023 90946 49257 9 Intrav enous False Glucagon (HCl) Emergency Kit 1 mg solution for injection Administer Glucagon 1 mg Intramuscular if 15 minutes after GLucose Gel is administered Glucose remains less than 70 1 mg 2023 Active 2023 78364 31682 2 Intram uscula r False Glucose Gel 40 % oral gel [Dextrose] PRN If resident is unable to swallow (with or without symptoms) and Glucose results less than 70 give GLucose 40% Gel 1 tube orally - Recheck Glucose 15 minutes after administratio n. 1 tube 2023 Active 2023 64145 11123 8 By Mouth False Milk of Magnesia 400 mg/5 mL oral suspension [Magnesium hydroxide] PRN 30ml By Mouth Daily as needed for constipation one time daily if no BM, on day 4 of no BM (PRN refer to instructions) For Constipation 30 mL 2023 Active 2023 15534 54556 6 Daily as needed By Mouth False Atorvastati n 40 mg tablet [generic] 08/26 Inactiv e 2023 42687 86393 5 Atorvastati n 40 mg tablet [generic] 40mg By Mouth Once daily For HDL 40mg 2023 Active 2023 95449 60425 5 Once daily By Mouth False Insulin aspart (U-100) 100 unit/mL (3 mL) subcutaneou s pen [generic] 15 units Subcutaneous 1 time For dm 15 units 08/26 Inactiv e 2023 12744 60277 5 1 time Subcut aneous False Humalog KwikPen (U-100) Insulin 100 unit/mL subcutaneou s 15 units Subcutaneous 1 time For dm 15 units 08/27 Inactiv e 2023 81785 83076 9 1 time Subcut aneous False Linezolid 600 mg tablet [generic] 600 mg By Mouth Every 12 hours For MRSA INFECTION L BKA 600 mg 09/06 Inactiv e 2023 19028 93178 1 Every 12 hours By Mouth False Cefpodoxime 200 mg tablet [generic] 400 mg By Mouth Twice daily For MRSA INFECTION L BKA 400 mg 08/31 Inactiv e 2023 60357 70164 0 Twice daily By Mouth False Senna 8.6 mg tablet 8.6 mg By Mouth Once daily For Constipation 8.6 mg 09/07 Inactiv e 2023 45287 16304 1 Once daily By Mouth False Humalog [...] abnormalities . Per Carb 2023 Active 2023 98163 38142 9 4 times a day Subcut aneous False Alendronate 35 mg tablet [generic] 08/31 Inactiv e 2023 09665 20451 5 Alendronate 35 mg tablet [generic] 35mg By Mouth Every week For Osteoporosis 35mg 2023 Active 2023 49057 38270 5 Every week By Mouth False ProSource 10 gram-100 kcal/30 mL oral liquid 30 ml By Mouth Once daily For wound healing 30 ml 2023 Active 2023 89259 33860 2 Once daily By Mouth False Clotrimazol e 1 % topical cream [generic] 1 applicaiton Topical Twice daily For tinea, apply to groin rash after cleansing and throughouly drying. Can discontinue order 3 days after rash resolves. 1 applica stacy 09/08 Inactiv e 2023 00313 57308 0 Twice daily Topica l False MAGIC MIX 1:1:1:1 : ZINC OXIDE EXTERNAL OINTMENT 40%; HYDROCOTISO NE EXTERNAL CREAM 1%; NYSTATIN EXTERNAL CREAM 515323O/GM; SILVADENE CREAM 1% Every shift Apply topically to MASD area on coccyx/buttoc ks each shift and as needed for incontinence care For MASD on coccyx layer 2023 Active 2023 Every shift Topica l False Problems Code Description Start Date End Date Status D64.9 Anemia, unspecified 08/25/2024 Activ e I25.10 Atherosclerotic hear t disease of [place] coronary artery without angina pectoris 08/25/2024 Active [...] weight Temperature SpO2 Blood Sugar Pulse Respirations 87007 8 67.00 mm[Hg] - Sitting 145.00 mm[Hg] - Sitting 98.50 Forehead Scan 96.00 % 81.00/ min 16.00/min 21314 004 89215 2 67.00 mm[Hg] - Sitting 145.00 mm[Hg] - Sitting 98.50 Tympanic 81.00/ min 16.00/min 53655 004 04795 5 56.00 mm[Hg] - Sitting 142.00 mm[Hg] - Sitting 136.40 NI 100.20 Tympanic 96.00 % 92.00/ min 18.00/min 29253 004 58818 6 55887 004 66112 4 143.00 mg/dL 004 67220 0 97.80 Tympanic 14893 005 17919 7 60.00 mm[Hg] - Sitting 140.00 mm[Hg] - Sitting 98.00 Tympanic 84.00/ min 18.00/min 28789 005 70119 0 63.00 mm[Hg] - Sitting 141.00 mm[Hg] - Sitting 98.20 Tympanic 92.00 % 63.00/ min 16.00/min 49744 005 41103 8 69.00 mm[Hg] - Sitting 106.00 mm[Hg] - Sitting 97.20 Tympanic 37122 005 79936 7 69.00/ min 16.00/min 91828 005 27438 3 69.00 mm[Hg] - Sitting 106.00 mm[Hg] - Sitting 98.20 Tympanic 69.00/ min 16.00/min 22323 005 80322 1 367.00 mg/dL 67275 005 70609 2 97.20 Tympanic 44376 005 61521 4 97.20 Tympanic 27456 005 28659 0 69.00 mm[Hg] - Sitting 106.00 mm[Hg] - Sitting 69.00/ min 37629 005 26356 3 452.00 mg/dL 99699 005 25321 3 452.00 mg/dL 84236 005 42829 5 352.00 mg/dL 52400 005 68697 3 352.00 mg/dL 09491 005 40011 7 98.20 Tympanic 61264 005 95083 3 101.00 mg/dL 23190 005 88754 8 101.00 mg/dL 07627 006 68962 4 66.00 mm[Hg] - Sitting 107.00 mm[Hg] - Sitting 98.00 Tympanic 66.00/ min 18.00/min 05203 006 53204 0 62.00 mm[Hg] - Sitting 162.00 mm[Hg] - Sitting 98.20 Tympanic 96.00 % 60.00/ min 16.00/min 82136 006 01980 4 62.00 mm[Hg] - Sitting 162.00 mm[Hg] - Sitting 98.00 Tympanic 70.00/ min 18.00/min 84886 006 75271 8 62.00 mm[Hg] - Sitting 162.00 mm[Hg] - Sitting 98.20 Tympanic 70.00/ min 18.00/min 65112 006 57760 2 66.00 mm[Hg] - Sitting 132.00 mm[Hg] - Sitting 98.60 Tympanic 74.00/ min 16.00/min 02127 006 35875 5 159.00 mg/dL 43756 006 70333 1 159.00 mg/dL 01026 006 25051 8 98.00 Tympanic 94825 006 77629 2 62.00 mm[Hg] - Sitting 162.00 mm[Hg] - Sitting 70.00/ min 44807 006 53785 7 264.00 mg/dL 61505 006 51377 7 264.00 mg/dL 42700 006 96190 4 196.00 mg/dL 35184 006 38480 3 98.20 Tympanic 69297 006 29145 6 271.00 mg/dL 22840 007 01325 3 97.20 Tympanic 88785 007 05311 2 63.00 mm[Hg] - Sitting 132.00 mm[Hg] - Sitting 98.50 Tympanic 94.00 % 66.00/ min 16.00/min 34365 007 19493 5 188.00 mg/dL 56449 007 62669 2 188.00 mg/dL 44139 007 98746 2 188.00 mg/dL 00669 007 00203 7 97.20 Tympanic 42528 007 40460 6 97.20 Tympanic 03709 007 32159 5 67.00 mm[Hg] - Sitting 152.00 mm[Hg] - Sitting 68.00/ min 48119 007 83685 0 141.00 mg/dL 18257 007 50934 3 141.00 mg/dL 19405 007 50714 1 366.00 mg/dL 09916 007 51631 7 366.00 mg/dL 87659 007 45607 7 98.00 Tympanic 93118 007 55452 6 324.00 mg/dL 55008 007 84494 3 98.00 Tympanic 48808 007 66893 7 324.00 mg/dL 41818 008 56927 0 98.00 Tympanic 43224 008 45946 2 97.90 Tympanic 83040 008 27713 0 98.20 Tympanic 89859 008 42852 0 73.00 mm[Hg] - Sitting 156.00 mm[Hg] - Sitting 98.60 Tympanic 99.00 % 66.00/ min 20.00/min 01952 008 73512 5 137.00 mg/dL 37263 008 67492 7 137.00 mg/dL 25621 008 38812 2 97.90 Tympanic 84017 008 50679 1 137.00 mg/dL 66669 008 80671 8 97.90 Tympanic 02990 008 72038 5 67.00 mm[Hg] - Sitting 124.00 /min 50235 008 39951 6 212.00 mg/dL 00323 008 87533 6 212.00 mg/dL 42909 008 09014 9 317.00 mg/dL 94076 008 90081 4 317.00 mg/dL 62244 008 75293 8 252.00 mg/dL 22517 008 86129 0 98.70 Tympanic 34010 008 96171 7 252.00 mg/dL 76541 008 98728 3 98.70 Tympanic 64341 009 78248 9 98.70 Tympanic 21334 009 50656 3 98.20 Tympanic 36328 009 81805 5 98.40 Tympanic 07566 009 93429 5 57.00 mm[Hg] - Sitting 129.00 mm[Hg] - Sitting 98.30 Tympanic 97.00 % 65.00/ min 18.00/min 09587 009 63535 1 255.00 mg/dL 16756 009 09932 4 255.00 mg/dL 71733 009 19472 5 98.20 Tympanic 47336 009 56212 0 255.00 mg/dL 30728 009 45430 0 98.20 Tympanic 94209 009 75770 4 63.00 mm[Hg] - Lying Down 102.00 mm[Hg] - Lying Down 58.00/ min 99070 009 88355 0 167.00 mg/dL 16509 009 94612 1 167.00 mg/dL 11730 009 90674 2 164.00 mg/dL 48941 009 08470 1 164.00 mg/dL 67285 009 95465 5 208.00 mg/dL 96540 010 74155 3 98.40 Tympanic 52131 010 67708 5 98.40 Tympanic 82574 010 60196 7 66 NI 64312 010 38006 4 60.00 mm[Hg] - Sitting 143.00 mm[Hg] - Sitting 98.90 Tympanic 98.00 % 67.00/ min 18.00/min 30561 010 02407 2 214.00 mg/dL 13721 010 93807 0 214.00 mg/dL 88334 010 26487 7 214.00 mg/dL 62895 010 34308 6 64.00 mm[Hg] - Sitting 110.00 mm[Hg] - Sitting 72.00/ min 62582 010 65066 7 98.40 Tympanic 66597 010 24827 1 212.00 mg/dL 21503 010 39417 2 212.00 mg/dL 26549 010 44915 1 115.00 mg/dL 93482 010 95431 0 115.00 mg/dL 77712 010 31799 4 98.50 Tympanic 44084 010 25774 4 150.00 mg/dL 87937 010 02188 0 150.00 mg/dL 14658 011 83224 9 98.60 Tympanic 44457 011 11091 1 67.00 mm[Hg] - Sitting 144.00 mm[Hg] - Sitting 98.20 Tympanic 98.00 % 61.00/ min 18.00/min 52142 011 59459 7 290.00 mg/dL 07286 011 91738 2 290.00 mg/dL 32664 011 14808 2 290.00 mg/dL 78164 011 96425 7 54.00 mm[Hg] - Sitting 136.00 mm[Hg] - Sitting 101.00 /min 50084 011 40237 7 98.60 Tympanic 32550 011 12801 5 240.00 mg/dL 14667 011 66638 1 240.00 mg/dL 64083 011 79564 1 156.00 mg/dL 16927 011 41841 9 156.00 mg/dL 99409 011 92400 0 97.80 Tympanic 85961 011 74193 8 343.00 mg/dL 56598 012 60954 9 97.90 Tympanic 44406 012 68590 2 466.00 mg/dL 26126 012 07249 1 466.00 mg/dL 39566 012 93047 3 466.00 mg/dL 87473 012 67474 8 97.90 Tympanic 87907 012 05783 8 56.00 mm[Hg] - Sitting 96.00 mm[Hg] - Sitting 61.00/ min 24646 012 02893 7 350.00 mg/dL 22597 012 62945 5 350.00 mg/dL 84599 012 07497 6 111.00 mg/dL 30153 012 62328 0 111.00 mg/dL 60865 012 82446 5 98.40 Tympanic 61670 012 93925 6 114.00 mg/dL 48872 013 95852 4 74.00 mm[Hg] - Sitting 112.00 mm[Hg] - Sitting 98.40 Tympanic 70.00/ min 18.00/min 80520 013 65414 8 244.00 mg/dL 59437 013 70906 7 244.00 mg/dL 24712 013 19331 1 244.00 mg/dL 82092 013 21910 1 98.20 Tympanic 60231 013 14986 7 72.00 mm[Hg] - Sitting 119.00 mm[Hg] - Sitting 76.00/ min 78513 013 10643 7 253.00 mg/dL 17151 013 85333 4 253.00 mg/dL 19050 013 11062 9 156.00 mg/dL 89157 013 05693 5 156.00 mg/dL 22671 013 21646 4 97.90 Tympanic 07846 013 17348 5 189.00 mg/dL 40290 014 70485 9 98.10 Tympanic 54680 014 45089 0 61.00 mm[Hg] - Sitting 139.00 mm[Hg] - Sitting 98.20 Forehead Scan 99.00 % 66.00/ min 18.00/min 65166 014 14152 3 169.00 mg/dL 31196 014 47442 3 98.10 Tympanic 98713 014 08984 3 75.00 mm[Hg] - Sitting 121.00 mm[Hg] - Sitting 71.00/ min 33088 014 96380 9 221.00 mg/dL 96818 014 98423 9 62.00 mg/dL 14698 014 48184 5 62.00 mg/dL 37665 014 80611 8 156.00 mg/dL 56968 014 83435 6 98.10 Tympanic 09550 014 87398 7 156.00 mg/dL 45177 015 03385 4 48312 015 45925 7 62.00 mm[Hg] - Sitting 142.00 mm[Hg] - Sitting 98.20 Tympanic 99.00 % 67.00/ min 18.00/min 09427 015 75343 9 120.00 mg/dL 99555 015 90474 7 98.00 Tympanic 76704 015 79251 2 82.00 mm[Hg] - Sitting 119.00 /min 40376 015 99074 9 110.00 mg/dL 48007 015 69577 6 104.00 mg/dL 93897 015 24715 0 100.00 mg/dL 76189 015 24215 2 98.10 Tympanic 66137 015 63686 6 100.00 mg/dL 86930 016 54902 2 67.00 mm[Hg] - Sitting 147.00 mm[Hg] - Sitting 99.00 Tympanic 99.00 % 78.00/ min 20.00/min 65534 016 38656 5 158.00 mg/dL 45142 016 94588 1 158.00 mg/dL 37364 016 63890 2 158.00 mg/dL 64673 016 09572 0 66.00 mm[Hg] - Sitting 121.00 mm[Hg] - Sitting 74.00/ min 04976 016 04440 1 97.00 mg/dL 96949 016 57011 5 97.00 mg/dL 24636 016 63094 4 78.00 mg/dL 04489 016 96072 6 78.00 mg/dL 53421 016 91429 5 248.00 mg/dL 22817 016 20504 8 248.00 mg/dL 33269 017 54169 3 54.00 mm[Hg] - Sitting 142.00 mm[Hg] - Sitting 98.30 Tympanic 99.00 % 76.00/ min 18.00/min 06596 017 43568 4 267.00 mg/dL 33554 017 57175 6 73.00 mm[Hg] - Sitting 109.00 mm[Hg] - Sitting 70.00/ min 21650 017 49785 1 184.00 mg/dL 27405 017 10566 5 184.00 mg/dL 22475 017 30747 9 248.00 mg/dL 69384 017 54482 8 299.00 mg/dL 78793 017 03502 3 299.00 mg/dL 42682 018 09460 7 50.00 mm[Hg] - Sitting 125.00 mm[Hg] - Sitting 98.30 Tympanic 98.00 % 76.00/ min 16.00/min 53331 018 05021 3 168.00 mg/dL 45577 018 46481 0 75.00 mm[Hg] - Sitting 121.00 mm[Hg] - Sitting 70.00/ min 70329 018 96456 7 264.00 mg/dL 14827 018 10868 6 132.00 mg/dL 53492 018 01200 6 154.00 mg/dL 40278 018 34257 6 154.00 mg/dL 37488 019 86038 9 159.00 mg/dL 89659 019 68441 8 73.00 mm[Hg] - Sitting 110.00 mm[Hg] - Sitting 72.00/ min 39943 019 64599 4 191.00 mg/dL 25536 019 17334 8 70.00 mg/dL 25375 019 17391 4 70.00 mg/dL 93701 019 48711 6 198.00 mg/dL Immunizations Vaccine Date Status COVID-19 09/20/2023 Completed Other 10/08/2023 Completed Shingles 05/27/2011 Completed Tetanus 04/13/2022 Completed TDaP 04/13/2022 Completed Shingles 2 10/05/2018 Completed
--- OUTSIDE RECORDS SUMMARY | 2024-10-03 11:08 | External Medical Summary | Continuity Of Care Document ---
Author Name Unknown Address [address] [address] Organization [facility] () Care Team Providers Care Sign Language Teacher Name Role Phone DO Machado Amy Primary Care Provider [phone] Allergies Allergy Reaction Start Date End Date [...] 3 0.1 mL 08/29 Inactiv e 2023 10366 56371 0 1 time Intrad ermal False Tubersol 5 tub. unit/0.1 mL intradermal injection solution [Tuberculin PPD] 0.1mL Intradermal 1 time For PPD 2nd Step Give 2nd Step PPD Day 1 and Read results Day 3 (schedule 7 days after 1st READ) 0.1mL 09/08 Inactiv e 2023 58664 34620 0 1 time Intrad ermal False Humalog [...] order For Diabetes 08/25 Inactiv e 2023 11388 17443 9 4 times a day Subcut aneous False Aspirin 325 mg tablet [generic] 325 By Mouth Twice daily For Anticoagulati on 325 09/25 Active 2023 70642 65155 1 Twice daily By Mouth False Ferrous sulfate 325 mg (65 mg iron) tablet [generic] 325 By Mouth Once daily For anemia 325 2023 Active 2023 91177 39350 5 Once daily By Mouth False Linezolid 600 mg tablet [generic] 600 mg By Mouth Every 12 hours For MRSA INFECTION L BKA 600 mg 08/25 Inactiv e 2023 94068 55935 1 Every 12 hours By Mouth False Cefpodoxime 200 mg tablet [generic] 400 mg By Mouth Twice daily For MRSA INFECTION L BKA 400 mg 08/25 Inactiv e 2023 12773 64996 0 Twice daily By Mouth False Coenzyme Q10 100 mg tablet [generic] 100 mg By Mouth Once daily For SUPP 100 mg 2023 Active 2023 92695 36055 0 Once daily By Mouth False Levothyroxi ne 50 mcg tablet [generic] 50mcg By Mouth Once daily For hypothyroidis m 50mcg 2023 Active 2023 57754 46011 0 Once daily By Mouth False One A Day Men Complete 240 mcg-25 mcg-300 mcg tablet 1 tab By Mouth Once daily For supplement 1 tab 2023 Active 2023 92200 41683 1 Once daily By Mouth False Cholecalcif adalberto (vitamin D3) 50 mcg (2,000 unit) tablet [generic] 1 TAB By Mouth Once daily For SUPP 1 TAB 2023 Active 2023 69451 65597 1 Once daily By Mouth False Cetirizine 10 mg tablet [generic] 1 TAB By Mouth At bedtime For Allergies 1 TAB 2023 Active 2023 64831 05728 0 At bedtime By Mouth False Timolol maleate 0.25 % eye drops [generic] 1 drop Both Eyes Twice daily For glaucoma 1 drop 2023 0000 0000 Active 2023 56076 91074 5 Twice daily Both Eyes False Alendronate 35 mg tablet [generic] 35mg By Mouth Every week For SIADH 35mg 08/31 Inactiv e 2023 23503 63801 5 Every week By Mouth False Lantus Solostar U-100 Insulin 100 unit/mL (3 mL) subcutaneou s pen 18 units Subcutaneous Every morning For DIABETES 18 units 08/25 Inactiv e 2023 91535 39281 0 Every morning Subcut aneous False Lantus Solostar U-100 Insulin 100 unit/mL (3 mL) subcutaneou s pen 18 units Subcutaneous Every morning For DIABETES 18 units 2023 Active 2023 77652 87480 0 Every morning Subcut aneous False Linezolid 600 mg tablet [generic] 600 mg By Mouth Every 12 hours For MRSA INFECTION L BKA 600 mg 08/28 Inactiv e 2023 34828 93662 1 Every 12 hours By Mouth False [...] order For Diabetes 08/31 Inactiv e 2023 95154 19977 9 4 times a day Subcut aneous False Cefpodoxime 200 mg tablet [generic] 400 mg By Mouth Twice daily For MRSA INFECTION L BKA 400 mg 08/28 Inactiv e 2023 10137 66456 0 Twice daily By Mouth False Brimonidine 0.1 % eye drops [generic] 1 drop Both Eyes Twice daily For glaucoma 1 drop 2023 Active 2023 84558 16032 0 Twice daily Both Eyes False Metoprolol succinate ER 50 mg tablet,exte nded release 24 hr [generic] 50 mg By Mouth Once daily HOLD FOR SBP <100, or pulse <60 For HTN 50 mg 2023 Active 2023 41502 16028 1 Once daily By Mouth False Amlodipine 2.5 mg tablet [generic] 2.5 mg By Mouth Once daily For HTN 2.5 mg 2023 Active 2023 28808 84491 5 Once daily By Mouth False Docusate sodium 100 mg capsule [generic] 100mg By Mouth Twice daily as needed For constipation HOLD FOR LOOSE STOOLS 100mg 2023 Active 2023 06551 57643 1 Twice daily as needed By Mouth False Atorvastati n 40 mg tablet [generic] 40mg By Mouth Once daily For HDL 40mg 08/26 Inactiv e 2023 12064 67706 5 Once daily By Mouth False Tylenol 325 mg tablet 2 tabs By Mouth Every 4 hours as needed For Pain DO NOT EXCEED 3000 MG APAP/24 Hours 2 tabs 2023 Active 2023 20777 36605 0 Every 4 hours as needed By Mouth False Tylenol 325 mg tablet 2 tabs By Mouth Every 4 hours as needed For Fever >100 DO NOT EXCEED 3000 MG APAP/24 Hours 2 tabs 2023 Active 2023 38732 09390 0 Every 4 hours as needed By Mouth False Dulcolax (bisacodyl) 10 mg rectal suppository One Suppository per rectum PRN if Milk of Magnisia ineffective. Give on day 5 of no BM 1 sup 2023 Active 2023 45338 85315 1 Daily as needed Rectal False Fleet Enema 19 gram-7 gram/118 mL Administer per rectum PRN one time if dulcolax suppository not effective. Give on day 6 of no BM 1 2023 Active 2023 98332 76377 6 Daily as needed Rectal False Dextrose 50 % in water (D50W) intravenous solution [generic] Dextrose 50% evonne 20-50 ml (slow push) Intravenous if Glucagon not effective after 15 minutes. CALL 911 for ED Evaluation. 50% evonne 2023 Active 2023 71673 16620 9 Intrav enous False Glucagon (HCl) Emergency Kit 1 mg solution for injection Administer Glucagon 1 mg Intramuscular if 15 minutes after GLucose Gel is administered Glucose remains less than 70 1 mg 2023 Active 2023 21766 19923 2 Intram uscula r False Glucose Gel 40 % oral gel [Dextrose] PRN If resident is unable to swallow (with or without symptoms) and Glucose results less than 70 give GLucose 40% Gel 1 tube orally - Recheck Glucose 15 minutes after administratio n. 1 tube 2023 Active 2023 96499 17668 8 By Mouth False Milk of Magnesia 400 mg/5 mL oral suspension [Magnesium hydroxide] PRN 30ml By Mouth Daily as needed for constipation one time daily if no BM, on day 4 of no BM (PRN refer to instructions) For Constipation 30 mL 2023 Active 2023 03707 65983 6 Daily as needed By Mouth False Atorvastati n 40 mg tablet [generic] 08/26 Inactiv e 2023 97861 90455 5 Atorvastati n 40 mg tablet [generic] 40mg By Mouth Once daily For HDL 40mg 2023 Active 2023 92975 06515 5 Once daily By Mouth False Insulin aspart (U-100) 100 unit/mL (3 mL) subcutaneou s pen [generic] 15 units Subcutaneous 1 time For dm 15 units 08/26 Inactiv e 2023 41660 77743 5 1 time Subcut aneous False Humalog KwikPen (U-100) Insulin 100 unit/mL subcutaneou s 15 units Subcutaneous 1 time For dm 15 units 08/27 Inactiv e 2023 00600 24676 9 1 time Subcut aneous False Linezolid 600 mg tablet [generic] 600 mg By Mouth Every 12 hours For MRSA INFECTION L BKA 600 mg 09/06 Inactiv e 2023 37301 53818 1 Every 12 hours By Mouth False Cefpodoxime 200 mg tablet [generic] 400 mg By Mouth Twice daily For MRSA INFECTION L BKA 400 mg 08/31 Inactiv e 2023 52440 86050 0 Twice daily By Mouth False Senna 8.6 mg tablet 8.6 mg By Mouth Once daily For Constipation 8.6 mg 09/07 Inactiv e 2023 63546 36025 1 Once daily By Mouth False Humalog [...] abnormalities . Per Carb 2023 Active 2023 01025 02673 9 4 times a day Subcut aneous False Alendronate 35 mg tablet [generic] 08/31 Inactiv e 2023 32280 35822 5 Alendronate 35 mg tablet [generic] 35mg By Mouth Every week For Osteoporosis 35mg 2023 Active 2023 80661 31415 5 Every week By Mouth False ProSource 10 gram-100 kcal/30 mL oral liquid 30 ml By Mouth Once daily For wound healing 30 ml 2023 Active 2023 68159 27340 2 Once daily By Mouth False Clotrimazol e 1 % topical cream [generic] 1 applicaiton Topical Twice daily For tinea, apply to groin rash after cleansing and throughouly drying. Can discontinue order 3 days after rash resolves. 1 applica stacy 09/08 Inactiv e 2023 91455 71991 0 Twice daily Topica l False MAGIC MIX 1:1:1:1 : ZINC OXIDE EXTERNAL OINTMENT 40%; HYDROCOTISO NE EXTERNAL CREAM 1%; NYSTATIN EXTERNAL CREAM 179379U/GM; SILVADENE CREAM 1% Every shift Apply topically to MASD area on coccyx/buttoc ks each shift and as needed for incontinence care For MASD on coccyx layer 2023 Active 2023 Every shift Topica l False Senna 8.6 mg tablet 8.6 mg By Mouth Once daily For Constipation 8.6 mg 09/07 Inactiv e 2023 42852 38272 1 Once daily By Mouth False Senna 8.6 mg tablet 8.6 mg By Mouth Once daily As Needed For Constipation 8.6 mg 2023 Active 2023 95836 07931 1 Once daily By Mouth False BD AutoShield Duo Pen Needle 30 gauge x 3/16in 1 pen needle Subcutaneous 4 times a day For DM 1 pen needle 2023 Active 2023 68752 89839 5 4 times a day Subcut aneous False Hydrocortis one 1 % topical ointment [generic] 1 application Topical Twice daily For tinea *mix 1:1 with clotrimazole cream and apply to clean/dry groin rash 1 applica peggy 09/19 Active 2023 41271 38984 6 Twice daily Topica l False Clotrimazol e 1 % topical cream [generic] 1 applicaiton Topical Twice daily For tinea, apply to groin rash after cleansing and throughouly drying. MIX WITH HYDROCORTISON E Can discontinue order 3 days after rash resolves. 1 applica stacy 2023 Active 2023 95751 57493 0 Twice daily Topica l False Humalog KwikPen (U-100) Insulin 100 unit/mL subcutaneou s 10/10/ 2024 10/10 /2024 Inactiv e 2023 99616 43751 9 MediHoney HCS 4 1/2in X 4 1/2in bandage Cleanse area with NSS, apply one medihoney hydrocolloid dressing, non adherent dressing, kerlix secure with paper tape daily. For wound stage III 1 2023 Active 2023 58603 57448 1 Once daily Topica l False Problems Code Description Start Date End Date Status D64.9 Anemia, unspecified 08/25/2024 Activ e I25.10 Atherosclerotic hear t disease of [place] coronary artery without angina pectoris 08/25/2024 Active [...] weight Temperature SpO2 Blood Sugar Pulse Respirations 11702 8 67.00 mm[Hg] - Sitting 145.00 mm[Hg] - Sitting 98.50 Forehead Scan 96.00 % 81.00/ min 16.00/min 46399 004 29412 2 67.00 mm[Hg] - Sitting 145.00 mm[Hg] - Sitting 98.50 Tympanic 81.00/ min 16.00/min 60389 004 94546 5 56.00 mm[Hg] - Sitting 142.00 mm[Hg] - Sitting 136.40 NI 100.20 Tympanic 96.00 % 92.00/ min 18.00/min 38987 004 93654 6 16314 004 27941 4 143.00 mg/dL 08095 004 08735 0 97.80 Tympanic 23395 005 92404 7 60.00 mm[Hg] - Sitting 140.00 mm[Hg] - Sitting 98.00 Tympanic 84.00/ min 18.00/min 58299 005 42036 0 63.00 mm[Hg] - Sitting 141.00 mm[Hg] - Sitting 98.20 Tympanic 92.00 % 63.00/ min 16.00/min 08217 005 61442 8 69.00 mm[Hg] - Sitting 106.00 mm[Hg] - Sitting 97.20 Tympanic 23048 005 30837 7 69.00/ min 16.00/min 00595 005 54671 3 69.00 mm[Hg] - Sitting 106.00 mm[Hg] - Sitting 98.20 Tympanic 69.00/ min 16.00/min 63606 005 43089 1 367.00 mg/dL 01001 005 91641 2 97.20 Tympanic 27642 005 34032 4 97.20 Tympanic 98083 005 78463 0 69.00 mm[Hg] - Sitting 106.00 mm[Hg] - Sitting 69.00/ min 61230 005 08509 3 452.00 mg/dL 09538 005 41125 3 452.00 mg/dL 36216 005 70310 5 352.00 mg/dL 33375 005 16794 3 352.00 mg/dL 65618 005 55244 7 98.20 Tympanic 52882 005 3 101.00 mg/dL 16905 005 8 101.00 mg/dL 90155 006 22829 4 66.00 mm[Hg] - Sitting 107.00 mm[Hg] - Sitting 98.00 Tympanic 66.00/ min 18.00/min 24750 006 40253 0 62.00 mm[Hg] - Sitting 162.00 mm[Hg] - Sitting 98.20 Tympanic 96.00 % 60.00/ min 16.00/min 92739 006 67237 4 62.00 mm[Hg] - Sitting 162.00 mm[Hg] - Sitting 98.00 Tympanic 70.00/ min 18.00/min 69622 006 62629 8 62.00 mm[Hg] - Sitting 162.00 mm[Hg] - Sitting 98.20 Tympanic 70.00/ min 18.00/min 70104 006 62854 2 66.00 mm[Hg] - Sitting 132.00 mm[Hg] - Sitting 98.60 Tympanic 74.00/ min 16.00/min 94779 006 20496 5 159.00 mg/dL Immunizations Vaccine Date Status COVID-19 09/20/2023 Completed Other 10/08/2023 Completed Shingles 05/27/2011 Completed Tetanus 04/13/2022 Completed TDaP 04/13/2022 Completed Shingles 2 10/05/2018 Completed
--- OUTSIDE RECORDS SUMMARY | 2024-10-03 11:09 | External Medical Summary | Continuity Of Care Document ---
Author Name Unknown Address [address] [address] Organization [facility] () Care Team Providers [employer] Name Role Phone DO Machado Amy Primary Care Provider [phone] Allergies Allergy Reaction Start Date End Date [...] 3 0.1 mL 08/29 Inactiv e 2023 46486 35758 0 1 time Intrad ermal False Tubersol 5 tub. unit/0.1 mL intradermal injection solution [Tuberculin PPD] 0.1mL Intradermal 1 time For PPD 2nd Step Give 2nd Step PPD Day 1 and Read results Day 3 (schedule 7 days after 1st READ) 0.1mL 09/08 Inactiv e 2023 79905 79762 0 1 time Intrad ermal False Humalog [...] order For Diabetes 08/25 Inactiv e 2023 99455 57832 9 4 times a day Subcut aneous False Aspirin 325 mg tablet [generic] 325 By Mouth Twice daily For Anticoagulati on 325 09/25 Active 2023 02276 41811 1 Twice daily By Mouth False Ferrous sulfate 325 mg (65 mg iron) tablet [generic] 325 By Mouth Once daily For anemia 325 2023 Active 2023 74287 01780 5 Once daily By Mouth False Linezolid 600 mg tablet [generic] 600 mg By Mouth Every 12 hours For MRSA INFECTION L BKA 600 mg 08/25 Inactiv e 2023 72676 56844 1 Every 12 hours By Mouth False Cefpodoxime 200 mg tablet [generic] 400 mg By Mouth Twice daily For MRSA INFECTION L BKA 400 mg 08/25 Inactiv e 2023 84798 85665 0 Twice daily By Mouth False Coenzyme Q10 100 mg tablet [generic] 100 mg By Mouth Once daily For SUPP 100 mg 2023 Active 2023 04381 21766 0 Once daily By Mouth False Levothyroxi ne 50 mcg tablet [generic] 50mcg By Mouth Once daily For hypothyroidis m 50mcg 2023 Active 2023 36787 87103 0 Once daily By Mouth False One A Day Men Complete 240 mcg-25 mcg-300 mcg tablet 1 tab By Mouth Once daily For supplement 1 tab 2023 Active 2023 07405 20901 1 Once daily By Mouth False Cholecalcif adalberto (vitamin D3) 50 mcg (2,000 unit) tablet [generic] 1 TAB By Mouth Once daily For SUPP 1 TAB 2023 Active 2023 40462 43177 1 Once daily By Mouth False Cetirizine 10 mg tablet [generic] 1 TAB By Mouth At bedtime For Allergies 1 TAB 2023 Active 2023 94461 21926 0 At bedtime By Mouth False Timolol maleate 0.25 % eye drops [generic] 1 drop Both Eyes Twice daily For glaucoma 1 drop 2023 0000 0000 Active 2023 92119 43771 5 Twice daily Both Eyes False Alendronate 35 mg tablet [generic] 35mg By Mouth Every week For SIADH 35mg 08/31 Inactiv e 2023 19376 88083 5 Every week By Mouth False Lantus Solostar U-100 Insulin 100 unit/mL (3 mL) subcutaneou s pen 18 units Subcutaneous Every morning For DIABETES 18 units 08/25 Inactiv e 2023 43451 84542 0 Every morning Subcut aneous False Lantus Solostar U-100 Insulin 100 unit/mL (3 mL) subcutaneou s pen 18 units Subcutaneous Every morning For DIABETES 18 units 2023 Active 2023 80240 65899 0 Every morning Subcut aneous False Linezolid 600 mg tablet [generic] 600 mg By Mouth Every 12 hours For MRSA INFECTION L BKA 600 mg 08/28 Inactiv e 2023 81943 09637 1 Every 12 hours By Mouth False [...] order For Diabetes 08/31 Inactiv e 2023 54353 46950 9 4 times a day Subcut aneous False Cefpodoxime 200 mg tablet [generic] 400 mg By Mouth Twice daily For MRSA INFECTION L BKA 400 mg 08/28 Inactiv e 2023 06417 62220 0 Twice daily By Mouth False Brimonidine 0.1 % eye drops [generic] 1 drop Both Eyes Twice daily For glaucoma 1 drop 2023 Active 2023 51752 41149 0 Twice daily Both Eyes False Metoprolol succinate ER 50 mg tablet,exte nded release 24 hr [generic] 50 mg By Mouth Once daily HOLD FOR SBP <100, or pulse <60 For HTN 50 mg 2023 Active 2023 20516 84628 1 Once daily By Mouth False Amlodipine 2.5 mg tablet [generic] 2.5 mg By Mouth Once daily For HTN 2.5 mg 2023 Active 2023 93144 26990 5 Once daily By Mouth False Docusate sodium 100 mg capsule [generic] 100mg By Mouth Twice daily as needed For constipation HOLD FOR LOOSE STOOLS 100mg 2023 Active 2023 09112 86370 1 Twice daily as needed By Mouth False Atorvastati n 40 mg tablet [generic] 40mg By Mouth Once daily For HDL 40mg 08/26 Inactiv e 2023 33524 09813 5 Once daily By Mouth False Tylenol 325 mg tablet 2 tabs By Mouth Every 4 hours as needed For Pain DO NOT EXCEED 3000 MG APAP/24 Hours 2 tabs 2023 Active 2023 52926 18706 0 Every 4 hours as needed By Mouth False Tylenol 325 mg tablet 2 tabs By Mouth Every 4 hours as needed For Fever >100 DO NOT EXCEED 3000 MG APAP/24 Hours 2 tabs 2023 Active 2023 41283 76769 0 Every 4 hours as needed By Mouth False Dulcolax (bisacodyl) 10 mg rectal suppository One Suppository per rectum PRN if Milk of Magnisia ineffective. Give on day 5 of no BM 1 sup 2023 Active 2023 09881 32877 1 Daily as needed Rectal False Fleet Enema 19 gram-7 gram/118 mL Administer per rectum PRN one time if dulcolax suppository not effective. Give on day 6 of no BM 1 2023 Active 2023 04453 91736 6 Daily as needed Rectal False Dextrose 50 % in water (D50W) intravenous solution [generic] Dextrose 50% evonne 20-50 ml (slow push) Intravenous if Glucagon not effective after 15 minutes. CALL 911 for ED Evaluation. 50% evonne 2023 Active 2023 13160 16222 9 Intrav enous False Glucagon (HCl) Emergency Kit 1 mg solution for injection Administer Glucagon 1 mg Intramuscular if 15 minutes after GLucose Gel is administered Glucose remains less than 70 1 mg 2023 Active 2023 74113 23470 2 Intram uscula r False Glucose Gel 40 % oral gel [Dextrose] PRN If resident is unable to swallow (with or without symptoms) and Glucose results less than 70 give GLucose 40% Gel 1 tube orally - Recheck Glucose 15 minutes after administratio n. 1 tube 2023 Active 2023 19990 61417 8 By Mouth False Milk of Magnesia 400 mg/5 mL oral suspension [Magnesium hydroxide] PRN 30ml By Mouth Daily as needed for constipation one time daily if no BM, on day 4 of no BM (PRN refer to instructions) For Constipation 30 mL 2023 Active 2023 82927 45474 6 Daily as needed By Mouth False Atorvastati n 40 mg tablet [generic] 08/26 Inactiv e 2023 52672 85686 5 Atorvastati n 40 mg tablet [generic] 40mg By Mouth Once daily For HDL 40mg 2023 Active 2023 26804 61642 5 Once daily By Mouth False Insulin aspart (U-100) 100 unit/mL (3 mL) subcutaneou s pen [generic] 15 units Subcutaneous 1 time For dm 15 units 08/26 Inactiv e 2023 88629 01771 5 1 time Subcut aneous False Humalog KwikPen (U-100) Insulin 100 unit/mL subcutaneou s 15 units Subcutaneous 1 time For dm 15 units 08/27 Inactiv e 2023 30804 16172 9 1 time Subcut aneous False Linezolid 600 mg tablet [generic] 600 mg By Mouth Every 12 hours For MRSA INFECTION L BKA 600 mg 09/06 Inactiv e 2023 77560 79577 1 Every 12 hours By Mouth False Cefpodoxime 200 mg tablet [generic] 400 mg By Mouth Twice daily For MRSA INFECTION L BKA 400 mg 08/31 Inactiv e 2023 54920 44812 0 Twice daily By Mouth False Senna 8.6 mg tablet 8.6 mg By Mouth Once daily For Constipation 8.6 mg 09/07 Inactiv e 2023 50760 68932 1 Once daily By Mouth False Humalog [...] abnormalities . Per Carb 2023 Active 2023 80731 34030 9 4 times a day Subcut aneous False Alendronate 35 mg tablet [generic] 08/31 Inactiv e 2023 65891 07596 5 Alendronate 35 mg tablet [generic] 35mg By Mouth Every week For Osteoporosis 35mg 2023 Active 2023 01337 20582 5 Every week By Mouth False ProSource 10 gram-100 kcal/30 mL oral liquid 30 ml By Mouth Once daily For wound healing 30 ml 2023 Active 2023 36343 59749 2 Once daily By Mouth False Clotrimazol e 1 % topical cream [generic] 1 applicaiton Topical Twice daily For tinea, apply to groin rash after cleansing and throughouly drying. Can discontinue order 3 days after rash resolves. 1 applica stacy 09/19 Active 2023 34019 63283 0 Twice daily Topica l False MAGIC MIX 1:1:1:1 : ZINC OXIDE EXTERNAL OINTMENT 40%; HYDROCOTISO NE EXTERNAL CREAM 1%; NYSTATIN EXTERNAL CREAM 524942A/GM; SILVADENE CREAM 1% Every shift Apply topically to MASD area on coccyx/buttoc ks each shift and as needed for incontinence care For MASD on coccyx layer 2023 Active 2023 Every shift Topica l False Senna 8.6 mg tablet 8.6 mg By Mouth Once daily For Constipation 8.6 mg 09/07 Inactiv e 2023 97357 40785 1 Once daily By Mouth False Senna 8.6 mg tablet 8.6 mg By Mouth Once daily As Needed For Constipation 8.6 mg 2023 Active 2023 83930 52377 1 Once daily By Mouth False BD AutoShield Duo Pen Needle 30 gauge x 3/16in 1 pen needle Subcutaneous 4 times a day For DM 1 pen needle 2023 Active 2023 85729 74114 5 4 times a day Subcut aneous False Hydrocortis one 1 % topical ointment [generic] 1 application Topical Twice daily For tinea *mix 1:1 with clotrimazole cream and apply to clean/dry groin rash 1 applica peggy 09/19 Active 2023 34863 48633 6 Twice daily Topica l False Humalog KwikPen (U-100) Insulin 100 unit/mL subcutaneou s 08/31 Inactiv e 2023 82565 08351 9 MediHoney HCS 4 1/2in X 4 1/2in bandage Cleanse area with NSS, apply one medihoney hydrocolloid dressing, non adherent dressing, kerlix secure with paper tape daily. 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00 mm[Hg] - Sitting 141.00 mm[Hg] - Sitting 98.20 Tympanic 92.00 % 63.00/ min 16.00/min 84893 005 91801 8 69.00 mm[Hg] - Sitting 106.00 mm[Hg] - Sitting 97.20 Tympanic 44551 005 62771 7 69.00/ min 16.00/min 55197 005 51850 3 69.00 mm[Hg] - Sitting 106.00 mm[Hg] - Sitting 98.20 Tympanic 69.00/ min 16.00/min 31904 005 02391 1 367.00 mg/dL 56509 005 64505 2 97.20 Tympanic 02168 005 11185 4 97.20 Tympanic 99451 005 64690 0 69.00 mm[Hg] - Sitting 106.00 mm[Hg] - Sitting 69.00/ min 00874 005 64087 3 452.00 mg/dL 24416 005 83345 3 452.00 mg/dL 39669 005 62295 5 352.00 mg/dL 96734 005 07331 3 352.00 mg/dL 00229 005 82138 7 98.20 Tympanic 97529 005 83851 3 101.00 mg/dL 67817 005 8 101.00 mg/dL 10299 006 99745 4 66.00 mm[Hg] - Sitting 107.00 mm[Hg] - Sitting 98.00 Tympanic 66.00/ min 18.00/min 23623 006 35530 0 62.00 mm[Hg] - Sitting 162.00 mm[Hg] - Sitting 98.20 Tympanic 96.00 % 60.00/ min 16.00/min 15746 006 06721 4 62.00 mm[Hg] - Sitting 162.00 mm[Hg] - Sitting 98.00 Tympanic 70.00/ min 18.00/min 58713 006 53176 8 62.00 mm[Hg] - Sitting 162.00 mm[Hg] - Sitting 98.20 Tympanic 70.00/ min 18.00/min 07630 006 78843 2 66.00 mm[Hg] - Sitting 132.00 mm[Hg] - Sitting 98.60 Tympanic 74.00/ min 16.00/min 74353 006 36340 5 159.00 mg/dL 55056 006 11971 1 159.00 mg/dL 15656 006 69613 8 98.00 Tympanic 36571 006 46464 2 62.00 mm[Hg] - Sitting 162.00 mm[Hg] - Sitting 70.00/ min 45931 006 23470 7 264.00 mg/dL 71918 006 34183 7 264.00 mg/dL 45569 006 40456 4 196.00 mg/dL 46031 006 86171 3 98.20 Tympanic 93670 006 36283 6 271.00 mg/dL 04379 007 01699 3 97.20 Tympanic 33255 007 63686 2 63.00 mm[Hg] - Sitting 132.00 mm[Hg] - Sitting 98.50 Tympanic 94.00 % 66.00/ min 16.00/min 33304 007 60493 5 188.00 mg/dL 56812 007 93586 2 188.00 mg/dL 79027 007 62104 2 188.00 mg/dL 02953 007 03627 7 97.20 Tympanic 41462 007 55718 6 97.20 Tympanic 64256 007 03918 5 67.00 mm[Hg] - Sitting 152.00 mm[Hg] - Sitting 68.00/ min 84599 007 14798 0 141.00 mg/dL 15530 007 29506 3 141.00 mg/dL 72465 007 92304 1 366.00 mg/dL 13055 007 40425 7 366.00 mg/dL 63824 007 13958 7 98.00 Tympanic 45741 007 87885 6 324.00 mg/dL 14487 007 80411 3 98.00 Tympanic 78764 007 64044 7 324.00 mg/dL 75874 008 88122 0 98.00 Tympanic 69358 008 20154 2 97.90 Tympanic 18021 008 68007 0 98.20 Tympanic 18557 008 16473 0 73.00 mm[Hg] - Sitting 156.00 mm[Hg] - Sitting 98.60 Tympanic 99.00 % 66.00/ min 20.00/min 88029 008 02337 5 137.00 mg/dL 05878 008 54494 7 137.00 mg/dL 94709 008 15180 2 97.90 Tympanic 89385 008 30485 1 137.00 mg/dL 72522 008 61405 8 97.90 Tympanic 08906 008 76019 5 67.00 mm[Hg] - Sitting 124.00 /min 77292 008 84826 6 212.00 mg/dL 29493 008 46770 6 212.00 mg/dL 64269 008 93300 9 317.00 mg/dL 29199 008 22327 4 317.00 mg/dL 47181 008 08534 8 252.00 mg/dL 81689 008 84387 0 98.70 Tympanic 37228 008 37026 7 252.00 mg/dL 29960 008 82478 3 98.70 Tympanic 67186 009 98141 9 98.70 Tympanic 98782 009 84953 3 98.20 Tympanic 93202 009 90816 5 98.40 Tympanic 10004 009 39393 5 57.00 mm[Hg] - Sitting 129.00 mm[Hg] - Sitting 98.30 Tympanic 97.00 % 65.00/ min 18.00/min 28109 009 50321 1 255.00 mg/dL 42651 009 68586 4 255.00 mg/dL 88109 009 28580 5 98.20 Tympanic 74503 009 46564 0 255.00 mg/dL 08429 009 93004 0 98.20 Tympanic 79895 009 60909 4 63.00 mm[Hg] - Lying Down 102.00 mm[Hg] - Lying Down 58.00/ min 54794 009 08615 0 167.00 mg/dL 39571 009 11227 1 167.00 mg/dL 03953 009 87291 2 164.00 mg/dL 13378 009 36098 1 164.00 mg/dL 23568 009 43586 5 208.00 mg/dL 50076 010 22333 3 98.40 Tympanic 00625 010 35525 5 98.40 Tympanic 61518 010 06085 7 66 NI 03274 010 80675 4 60.00 mm[Hg] - Sitting 143.00 mm[Hg] - Sitting 98.90 Tympanic 98.00 % 67.00/ min 18.00/min 85380 010 86766 2 214.00 mg/dL 92556 010 63915 0 214.00 mg/dL 29593 010 11153 7 214.00 mg/dL 32013 010 70155 6 64.00 mm[Hg] - Sitting 110.00 mm[Hg] - Sitting 72.00/ min 97144 010 77135 7 98.40 Tympanic 76662 010 79213 1 212.00 mg/dL 44368 010 06014 2 212.00 mg/dL 85615 010 84064 1 115.00 mg/dL 85317 010 40685 0 115.00 mg/dL 07497 010 87157 4 98.50 Tympanic 92178 010 91645 4 150.00 mg/dL 35081 010 51608 0 150.00 mg/dL 49191 011 84002 9 98.60 Tympanic 39619 011 87583 1 67.00 mm[Hg] - Sitting 144.00 mm[Hg] - Sitting 98.20 Tympanic 98.00 % 61.00/ min 18.00/min 03304 011 84757 7 290.00 mg/dL 92109 011 29752 2 290.00 mg/dL 59498 011 61439 2 290.00 mg/dL 85087 011 73831 7 54.00 mm[Hg] - Sitting 136.00 mm[Hg] - Sitting 101.00 /min 51766 011 41975 7 98.60 Tympanic 51723 011 06954 5 240.00 mg/dL 24152 011 26279 1 240.00 mg/dL 89335 011 87745 1 156.00 mg/dL 52571 011 30976 9 156.00 mg/dL 32814 011 23624 0 97.80 Tympanic 51807 011 30602 8 343.00 mg/dL 13827 012 58995 9 97.90 Tympanic 07472 012 19720 2 466.00 mg/dL 62908 012 83314 1 466.00 mg/dL 90640 012 00127 3 466.00 mg/dL 85357 012 56699 8 97.90 Tympanic 97392 012 84907 8 56.00 mm[Hg] - Sitting 96.00 mm[Hg] - Sitting 61.00/ min 51088 012 83514 7 350.00 mg/dL 71312 012 69110 5 350.00 mg/dL 23381 012 84871 6 111.00 mg/dL 15234 012 96867 0 111.00 mg/dL 18262 012 98013 5 98.40 Tympanic 59780 012 59983 6 114.00 mg/dL 94077 013 05337 4 74.00 mm[Hg] - Sitting 112.00 mm[Hg] - Sitting 98.40 Tympanic 70.00/ min 18.00/min 66072 013 43563 8 244.00 mg/dL 27527 013 05696 7 244.00 mg/dL 44431 013 16064 1 244.00 mg/dL 82563 013 42044 1 98.20 Tympanic 63029 013 27076 7 72.00 mm[Hg] - Sitting 119.00 mm[Hg] - Sitting 76.00/ min 95205 013 14187 7 253.00 mg/dL 88484 013 54007 4 253.00 mg/dL 23877 013 34538 9 156.00 mg/dL 71728 013 47989 5 156.00 mg/dL 21160 013 89548 4 97.90 Tympanic 60484 013 24320 5 189.00 mg/dL 77988 014 07628 9 98.10 Tympanic 52741 014 10343 0 61.00 mm[Hg] - Sitting 139.00 mm[Hg] - Sitting 98.20 Forehead Scan 99.00 % 66.00/ min 18.00/min 12765 014 79726 3 169.00 mg/dL 60266 014 67153 3 98.10 Tympanic 33404 014 76804 3 75.00 mm[Hg] - Sitting 121.00 mm[Hg] - Sitting 71.00/ min 54489 014 13882 9 221.00 mg/dL 62357 014 23975 9 62.00 mg/dL 62419 014 57144 5 62.00 mg/dL 52960 014 14015 8 156.00 mg/dL 84851 014 33598 6 98.10 Tympanic 68075 014 49365 7 156.00 mg/dL 78549 015 50730 4 09841 015 71774 7 62.00 mm[Hg] - Sitting 142.00 mm[Hg] - Sitting 98.20 Tympanic 99.00 % 67.00/ min 18.00/min 77167 015 36858 9 120.00 mg/dL 26182 015 31408 7 98.00 Tympanic 01661 015 98006 2 82.00 mm[Hg] - Sitting 119.00 /min 01025 015 57460 9 110.00 mg/dL 69482 015 90213 6 104.00 mg/dL 42233 015 55808 0 100.00 mg/dL 74984 015 03440 2 98.10 Tympanic 18157 015 17057 6 100.00 mg/dL 70262 016 41588 2 67.00 mm[Hg] - Sitting 147.00 mm[Hg] - Sitting 99.00 Tympanic 99.00 % 78.00/ min 20.00/min 88829 016 77359 5 158.00 mg/dL 59192 016 78845 1 158.00 mg/dL 30673 016 64127 2 158.00 mg/dL 70897 016 57226 0 66.00 mm[Hg] - Sitting 121.00 mm[Hg] - Sitting 74.00/ min 43561 016 41866 1 97.00 mg/dL 50949 016 22002 5 97.00 mg/dL 92538 016 28761 4 78.00 mg/dL 78056 016 16270 6 78.00 mg/dL 54022 016 78605 5 248.00 mg/dL 20643 016 47019 8 248.00 mg/dL 93191 017 89107 3 54.00 mm[Hg] - Sitting 142.00 mm[Hg] - Sitting 98.30 Tympanic 99.00 % 76.00/ min 18.00/min 20022 017 63015 4 267.00 mg/dL 16598 017 00764 6 73.00 mm[Hg] - Sitting 109.00 mm[Hg] - Sitting 70.00/ min 71323 017 81477 1 184.00 mg/dL 34803 017 36775 5 184.00 mg/dL 98525 017 47974 9 248.00 mg/dL 94159 017 28792 8 299.00 mg/dL 42703 017 26181 3 299.00 mg/dL 33127 018 26203 3 168.00 mg/dL 018 62274 0 75.00 mm[Hg] - Sitting 121.00 mm[Hg] - Sitting 70.00/ min 018 61018 7 264.00 mg/dL Immunizations Vaccine Date Status COVID-19 09/20/2023 Completed Other 10/08/2023 Completed Shingles 05/27/2011 Completed Tetanus 04/13/2022 Completed TDaP 04/13/2022 Completed Shingles 2 10/05/2018 Completed
--- OUTSIDE RECORDS SUMMARY | 2024-10-03 11:09 | External Medical Summary | Continuity Of Care Document ---
Author Name Unknown Address [address] [address] Organization [facility] () Care Team Providers Care Kineseologist Name Role Phone DO Machado Amy Primary Care Provider [phone] Allergies Allergy Reaction Start Date End Date [...] 3 0.1 mL 08/29 Inactiv e 2023 71354 51866 0 1 time Intrad ermal False Tubersol 5 tub. unit/0.1 mL intradermal injection solution [Tuberculin PPD] 0.1mL Intradermal 1 time For PPD 2nd Step Give 2nd Step PPD Day 1 and Read results Day 3 (schedule 7 days after 1st READ) 0.1mL 09/08 Inactiv e 2023 00840 91409 0 1 time Intrad ermal False Humalog [...] order For Diabetes 08/25 Inactiv e 2023 60337 70688 9 4 times a day Subcut aneous False Aspirin 325 mg tablet [generic] 325 By Mouth Twice daily For Anticoagulati on 325 09/25 Active 2023 76836 64963 1 Twice daily By Mouth False Ferrous sulfate 325 mg (65 mg iron) tablet [generic] 325 By Mouth Once daily For anemia 325 2023 Active 2023 67979 33980 5 Once daily By Mouth False Linezolid 600 mg tablet [generic] 600 mg By Mouth Every 12 hours For MRSA INFECTION L BKA 600 mg 08/25 Inactiv e 2023 70899 30543 1 Every 12 hours By Mouth False Cefpodoxime 200 mg tablet [generic] 400 mg By Mouth Twice daily For MRSA INFECTION L BKA 400 mg 08/25 Inactiv e 2023 44701 68519 0 Twice daily By Mouth False Coenzyme Q10 100 mg tablet [generic] 100 mg By Mouth Once daily For SUPP 100 mg 2023 Active 2023 99119 95349 0 Once daily By Mouth False Levothyroxi ne 50 mcg tablet [generic] 50mcg By Mouth Once daily For hypothyroidis m 50mcg 2023 Active 2023 64829 62077 0 Once daily By Mouth False One A Day Men Complete 240 mcg-25 mcg-300 mcg tablet 1 tab By Mouth Once daily For supplement 1 tab 2023 Active 2023 90142 03754 1 Once daily By Mouth False Cholecalcif adalberto (vitamin D3) 50 mcg (2,000 unit) tablet [generic] 1 TAB By Mouth Once daily For SUPP 1 TAB 2023 Active 2023 40780 29639 1 Once daily By Mouth False Cetirizine 10 mg tablet [generic] 1 TAB By Mouth At bedtime For Allergies 1 TAB 2023 Active 2023 81847 04657 0 At bedtime By Mouth False Timolol maleate 0.25 % eye drops [generic] 1 drop Both Eyes Twice daily For glaucoma 1 drop 2023 0000 0000 Active 2023 81595 64789 5 Twice daily Both Eyes False Alendronate 35 mg tablet [generic] 35mg By Mouth Every week For SIADH 35mg 08/31 Inactiv e 2023 99657 04592 5 Every week By Mouth False Lantus Solostar U-100 Insulin 100 unit/mL (3 mL) subcutaneou s pen 18 units Subcutaneous Every morning For DIABETES 18 units 08/25 Inactiv e 2023 11275 02640 0 Every morning Subcut aneous False Lantus Solostar U-100 Insulin 100 unit/mL (3 mL) subcutaneou s pen 18 units Subcutaneous Every morning For DIABETES 18 units 2023 Active 2023 87071 50419 0 Every morning Subcut aneous False Linezolid 600 mg tablet [generic] 600 mg By Mouth Every 12 hours For MRSA INFECTION L BKA 600 mg 08/28 Inactiv e 2023 24548 91780 1 Every 12 hours By Mouth False [...] order For Diabetes 08/31 Inactiv e 2023 05728 20974 9 4 times a day Subcut aneous False Cefpodoxime 200 mg tablet [generic] 400 mg By Mouth Twice daily For MRSA INFECTION L BKA 400 mg 08/28 Inactiv e 2023 29057 20857 0 Twice daily By Mouth False Brimonidine 0.1 % eye drops [generic] 1 drop Both Eyes Twice daily For glaucoma 1 drop 2023 Active 2023 34702 36994 0 Twice daily Both Eyes False Metoprolol succinate ER 50 mg tablet,exte nded release 24 hr [generic] 50 mg By Mouth Once daily HOLD FOR SBP <100, or pulse <60 For HTN 50 mg 2023 Active 2023 38710 58497 1 Once daily By Mouth False Amlodipine 2.5 mg tablet [generic] 2.5 mg By Mouth Once daily For HTN 2.5 mg 2023 Active 2023 81450 98044 5 Once daily By Mouth False Docusate sodium 100 mg capsule [generic] 100mg By Mouth Twice daily as needed For constipation HOLD FOR LOOSE STOOLS 100mg 2023 Active 2023 89098 48868 1 Twice daily as needed By Mouth False Atorvastati n 40 mg tablet [generic] 40mg By Mouth Once daily For HDL 40mg 08/26 Inactiv e 2023 46605 33108 5 Once daily By Mouth False Tylenol 325 mg tablet 2 tabs By Mouth Every 4 hours as needed For Pain DO NOT EXCEED 3000 MG APAP/24 Hours 2 tabs 2023 Active 2023 49809 24147 0 Every 4 hours as needed By Mouth False Tylenol 325 mg tablet 2 tabs By Mouth Every 4 hours as needed For Fever >100 DO NOT EXCEED 3000 MG APAP/24 Hours 2 tabs 2023 Active 2023 75709 25119 0 Every 4 hours as needed By Mouth False Dulcolax (bisacodyl) 10 mg rectal suppository One Suppository per rectum PRN if Milk of Magnisia ineffective. Give on day 5 of no BM 1 sup 2023 Active 2023 03398 07817 1 Daily as needed Rectal False Fleet Enema 19 gram-7 gram/118 mL Administer per rectum PRN one time if dulcolax suppository not effective. Give on day 6 of no BM 1 2023 Active 2023 00590 34217 6 Daily as needed Rectal False Dextrose 50 % in water (D50W) intravenous solution [generic] Dextrose 50% evonne 20-50 ml (slow push) Intravenous if Glucagon not effective after 15 minutes. CALL 911 for ED Evaluation. 50% evonne 2023 Active 2023 56189 38861 9 Intrav enous False Glucagon (HCl) Emergency Kit 1 mg solution for injection Administer Glucagon 1 mg Intramuscular if 15 minutes after GLucose Gel is administered Glucose remains less than 70 1 mg 2023 Active 2023 23553 67632 2 Intram uscula r False Glucose Gel 40 % oral gel [Dextrose] PRN If resident is unable to swallow (with or without symptoms) and Glucose results less than 70 give GLucose 40% Gel 1 tube orally - Recheck Glucose 15 minutes after administratio n. 1 tube 2023 Active 2023 95755 87109 8 By Mouth False Milk of Magnesia 400 mg/5 mL oral suspension [Magnesium hydroxide] PRN 30ml By Mouth Daily as needed for constipation one time daily if no BM, on day 4 of no BM (PRN refer to instructions) For Constipation 30 mL 2023 Active 2023 50840 69070 6 Daily as needed By Mouth False Atorvastati n 40 mg tablet [generic] 08/26 Inactiv e 2023 00534 35575 5 Atorvastati n 40 mg tablet [generic] 40mg By Mouth Once daily For HDL 40mg 2023 Active 2023 05995 74707 5 Once daily By Mouth False Insulin aspart (U-100) 100 unit/mL (3 mL) subcutaneou s pen [generic] 15 units Subcutaneous 1 time For dm 15 units 08/26 Inactiv e 2023 43966 16826 5 1 time Subcut aneous False Humalog KwikPen (U-100) Insulin 100 unit/mL subcutaneou s 15 units Subcutaneous 1 time For dm 15 units 08/27 Inactiv e 2023 83182 85906 9 1 time Subcut aneous False Linezolid 600 mg tablet [generic] 600 mg By Mouth Every 12 hours For MRSA INFECTION L BKA 600 mg 09/06 Inactiv e 2023 51554 34383 1 Every 12 hours By Mouth False Cefpodoxime 200 mg tablet [generic] 400 mg By Mouth Twice daily For MRSA INFECTION L BKA 400 mg 08/31 Inactiv e 2023 51083 19773 0 Twice daily By Mouth False Senna 8.6 mg tablet 8.6 mg By Mouth Once daily For Constipation 8.6 mg 09/07 Inactiv e 2023 48354 69555 1 Once daily By Mouth False Humalog [...] abnormalities . Per Carb 2023 Active 2023 85913 45274 9 4 times a day Subcut aneous False Alendronate 35 mg tablet [generic] 08/31 Inactiv e 2023 57813 91166 5 Alendronate 35 mg tablet [generic] 35mg By Mouth Every week For Osteoporosis 35mg 2023 Active 2023 79381 12954 5 Every week By Mouth False ProSource 10 gram-100 kcal/30 mL oral liquid 30 ml By Mouth Once daily For wound healing 30 ml 2023 Active 2023 24823 87109 2 Once daily By Mouth False Clotrimazol e 1 % topical cream [generic] 1 applicaiton Topical Twice daily For tinea, apply to groin rash after cleansing and throughouly drying. Can discontinue order 3 days after rash resolves. 1 applica stacy 09/19 Active 2023 31189 24150 0 Twice daily Topica l False MAGIC MIX 1:1:1:1 : ZINC OXIDE EXTERNAL OINTMENT 40%; HYDROCOTISO NE EXTERNAL CREAM 1%; NYSTATIN EXTERNAL CREAM 147683A/GM; SILVADENE CREAM 1% Every shift Apply topically to MASD area on coccyx/buttoc ks each shift and as needed for incontinence care For MASD on coccyx layer 2023 Active 2023 Every shift Topica l False Senna 8.6 mg tablet 8.6 mg By Mouth Once daily For Constipation 8.6 mg 09/07 Inactiv e 2023 20123 50982 1 Once daily By Mouth False Senna 8.6 mg tablet 8.6 mg By Mouth Once daily As Needed For Constipation 8.6 mg 2023 Active 2023 76070 53632 1 Once daily By Mouth False BD AutoShield Duo Pen Needle 30 gauge x 3/16in 1 pen needle Subcutaneous 4 times a day For DM 1 pen needle 2023 Active 2023 92937 50687 5 4 times a day Subcut aneous False Hydrocortis one 1 % topical ointment [generic] 1 application Topical Twice daily For tinea *mix 1:1 with clotrimazole cream and apply to clean/dry groin rash 1 applica peggy 09/19 Active 2023 92650 91302 6 Twice daily Topica l False Humalog KwikPen (U-100) Insulin 100 unit/mL subcutaneou s 08/31 Inactiv e 2023 28173 41603 9 MediHoney HCS 4 1/2in X 4 1/2in bandage Cleanse area with NSS, apply one medihoney hydrocolloid dressing, non adherent dressing, kerlix secure with paper tape daily. For wound stage III 1 2023 Active 2023 58680 73298 1 Once daily Topica l False Problems Code Description Start Date End Date Status D64.9 Anemia, unspecified 08/25/2024 Activ e I25.10 Atherosclerotic hear t disease of [place] coronary artery without angina pectoris 08/25/2024 Active [...] Temperature SpO2 Blood Sugar Pulse Respirations 004 73310 8 67.00 mm[Hg] - Sitting 145.00 mm[Hg] - Sitting 98.50 Forehead Scan 96.00 % 81.00/ min 16.00/min 33277 004 60549 2 67.00 mm[Hg] - Sitting 145.00 mm[Hg] - Sitting 98.50 Tympanic 81.00/ min 16.00/min 25588 004 64279 5 56.00 mm[Hg] - Sitting 142.00 mm[Hg] - Sitting 136.40 NI 100.20 Tympanic 96.00 % 92.00/ min 18.00/min 88497 004 00385 6 49255 004 18250 4 143.00 mg/dL 004 60800 0 97.80 Tympanic 97239 005 22008 7 60.00 mm[Hg] - Sitting 140.00 mm[Hg] - Sitting 98.00 Tympanic 84.00/ min 18.00/min 05499 005 30975 0 63.00 mm[Hg] - Sitting 141.00 mm[Hg] - Sitting 98.20 Tympanic 92.00 % 63.00/ min 16.00/min 55413 005 29679 8 69.00 mm[Hg] - Sitting 106.00 mm[Hg] - Sitting 97.20 Tympanic 82635 005 71338 7 69.00/ min 16.00/min 16168 005 60841 3 69.00 mm[Hg] - Sitting 106.00 mm[Hg] - Sitting 98.20 Tympanic 69.00/ min 16.00/min 99720 005 36248 1 367.00 mg/dL 81128 005 03151 2 97.20 Tympanic 43964 005 51369 4 97.20 Tympanic 86540 005 98117 0 69.00 mm[Hg] - Sitting 106.00 mm[Hg] - Sitting 69.00/ min 45835 005 44047 3 452.00 mg/dL 63915 005 02195 3 452.00 mg/dL 52444 005 30864 5 352.00 mg/dL 45167 005 16428 3 352.00 mg/dL 70602 005 15933 7 98.20 Tympanic 58505 005 60935 3 101.00 mg/dL 69881 005 8 101.00 mg/dL 82086 006 93233 4 66.00 mm[Hg] - Sitting 107.00 mm[Hg] - Sitting 98.00 Tympanic 66.00/ min 18.00/min 39846 006 06139 0 62.00 mm[Hg] - Sitting 162.00 mm[Hg] - Sitting 98.20 Tympanic 96.00 % 60.00/ min 16.00/min 87009 006 17485 4 62.00 mm[Hg] - Sitting 162.00 mm[Hg] - Sitting 98.00 Tympanic 70.00/ min 18.00/min 21022 006 30302 8 62.00 mm[Hg] - Sitting 162.00 mm[Hg] - Sitting 98.20 Tympanic 70.00/ min 18.00/min 41470 006 40480 2 66.00 mm[Hg] - Sitting 132.00 mm[Hg] - Sitting 98.60 Tympanic 74.00/ min 16.00/min 18524 006 74263 5 159.00 mg/dL 84447 006 43270 1 159.00 mg/dL 17507 006 44305 8 98.00 Tympanic 46435 006 71173 2 62.00 mm[Hg] - Sitting 162.00 mm[Hg] - Sitting 70.00/ min 15014 006 97373 7 264.00 mg/dL 09360 006 23392 7 264.00 mg/dL 51877 006 77539 4 196.00 mg/dL 15696 006 62156 3 98.20 Tympanic 73879 006 65101 6 271.00 mg/dL 38499 007 88155 3 97.20 Tympanic 82691 007 10850 2 63.00 mm[Hg] - Sitting 132.00 mm[Hg] - Sitting 98.50 Tympanic 94.00 % 66.00/ min 16.00/min 32607 007 98771 5 188.00 mg/dL 04413 007 89384 2 188.00 mg/dL 53047 007 95863 2 188.00 mg/dL 30131 007 68797 7 97.20 Tympanic 48997 007 99851 6 97.20 Tympanic 05206 007 21919 5 67.00 mm[Hg] - Sitting 152.00 mm[Hg] - Sitting 68.00/ min 60535 007 22238 0 141.00 mg/dL 56059 007 61291 3 141.00 mg/dL 56028 007 77341 1 366.00 mg/dL 36965 007 02977 7 366.00 mg/dL 98118 007 78333 7 98.00 Tympanic 51331 007 28632 6 324.00 mg/dL 50233 007 08598 3 98.00 Tympanic 38391 007 24200 7 324.00 mg/dL 38275 008 18733 0 98.00 Tympanic 23420 008 37276 2 97.90 Tympanic 02581 008 72030 0 98.20 Tympanic 23576 008 89423 0 73.00 mm[Hg] - Sitting 156.00 mm[Hg] - Sitting 98.60 Tympanic 99.00 % 66.00/ min 20.00/min 78845 008 71266 5 137.00 mg/dL 56618 008 89734 7 137.00 mg/dL 36156 008 48515 2 97.90 Tympanic 29094 008 01615 1 137.00 mg/dL 64078 008 79581 8 97.90 Tympanic 86356 008 85538 5 67.00 mm[Hg] - Sitting 124.00 /min 58161 008 74731 6 212.00 mg/dL 90475 008 35901 6 212.00 mg/dL 77131 008 99445 9 317.00 mg/dL 33029 008 89664 4 317.00 mg/dL 48321 008 05666 8 252.00 mg/dL 49206 008 82322 0 98.70 Tympanic 81700 008 12972 7 252.00 mg/dL 28793 008 14726 3 98.70 Tympanic 94410 009 11719 9 98.70 Tympanic 66948 009 79067 3 98.20 Tympanic 83091 009 99210 5 98.40 Tympanic 27176 009 75618 5 57.00 mm[Hg] - Sitting 129.00 mm[Hg] - Sitting 98.30 Tympanic 97.00 % 65.00/ min 18.00/min 09196 009 33315 1 255.00 mg/dL 56104 009 19302 4 255.00 mg/dL 57330 009 51619 5 98.20 Tympanic 47428 009 45687 0 255.00 mg/dL 15813 009 14944 0 98.20 Tympanic 52631 009 22197 4 63.00 mm[Hg] - Lying Down 102.00 mm[Hg] - Lying Down 58.00/ min 85883 009 16775 0 167.00 mg/dL 37073 009 54903 1 167.00 mg/dL 26430 009 62856 2 164.00 mg/dL 61570 009 57633 1 164.00 mg/dL 09656 009 65583 5 208.00 mg/dL 90916 010 39638 3 98.40 Tympanic 18657 010 78985 5 98.40 Tympanic 39530 010 78114 7 66 [place] [address] 010 19391 4 60.00 mm[Hg] - Sitting 143.00 mm[Hg] - Sitting 98.90 Tympanic 98.00 % 67.00/ min 18.00/min 68812 010 99012 2 214.00 mg/dL 13652 010 70235 0 214.00 mg/dL 88041 010 99461 7 214.00 mg/dL 81270 010 98637 6 64.00 mm[Hg] - Sitting 110.00 mm[Hg] - Sitting 72.00/ min 21373 010 70246 7 98.40 Tympanic 94914 010 62040 1 212.00 mg/dL 26466 010 71933 2 212.00 mg/dL 74651 010 20351 1 115.00 mg/dL 52040 010 53054 0 115.00 mg/dL 79208 010 06702 4 98.50 Tympanic 88772 010 39916 4 150.00 mg/dL 30960 010 69504 0 150.00 mg/dL 14466 011 95106 9 98.60 Tympanic 53435 011 35991 1 67.00 mm[Hg] - Sitting 144.00 mm[Hg] - Sitting 98.20 Tympanic 98.00 % 61.00/ min 18.00/min 00381 011 54366 7 290.00 mg/dL 66496 011 22515 2 290.00 mg/dL 77836 011 75220 2 290.00 mg/dL 74072 011 99996 7 54.00 mm[Hg] - Sitting 136.00 mm[Hg] - Sitting 101.00 /min 46812 011 06118 7 98.60 Tympanic 48910 011 17759 5 240.00 mg/dL 22284 011 55954 1 240.00 mg/dL 94750 011 22182 1 156.00 mg/dL 26074 011 01001 9 156.00 mg/dL 97506 011 54308 0 97.80 Tympanic 85764 011 63107 8 343.00 mg/dL 49808 012 52412 9 97.90 Tympanic 24345 012 25841 2 466.00 mg/dL 55306 012 44244 1 466.00 mg/dL 19494 012 12187 3 466.00 mg/dL 80023 012 65458 8 97.90 Tympanic 18186 012 79365 8 56.00 mm[Hg] - Sitting 96.00 mm[Hg] - Sitting 61.00/ min 34961 012 46953 7 350.00 mg/dL 41127 012 67049 5 350.00 mg/dL 32740 012 52249 6 111.00 mg/dL 69254 012 70933 0 111.00 mg/dL 02990 012 60588 5 98.40 Tympanic 60084 012 61866 6 114.00 mg/dL 10999 013 54353 4 74.00 mm[Hg] - Sitting 112.00 mm[Hg] - Sitting 98.40 Tympanic 70.00/ min 18.00/min 64245 013 54395 8 244.00 mg/dL 78938 013 38632 7 244.00 mg/dL 42477 013 89531 1 244.00 mg/dL 12925 013 72014 1 98.20 Tympanic 97454 013 77163 7 72.00 mm[Hg] - Sitting 119.00 mm[Hg] - Sitting 76.00/ min 04188 013 65389 7 253.00 mg/dL 05652 013 67121 4 253.00 mg/dL 05954 013 95032 9 156.00 mg/dL 31895 013 72145 5 156.00 mg/dL 54820 013 53029 4 97.90 Tympanic 39750 013 00157 5 189.00 mg/dL 42137 014 62044 9 98.10 Tympanic 34731 014 65823 0 61.00 mm[Hg] - Sitting 139.00 mm[Hg] - Sitting 98.20 Forehead Scan 99.00 % 66.00/ min 18.00/min 56965 014 72015 3 169.00 mg/dL 54272 014 67013 3 98.10 Tympanic 27258 014 36505 3 75.00 mm[Hg] - Sitting 121.00 mm[Hg] - Sitting 71.00/ min 93504 014 92172 9 221.00 mg/dL 24527 014 00039 9 62.00 mg/dL 78506 014 10521 5 62.00 mg/dL 02877 014 48565 8 156.00 mg/dL 18325 014 66471 6 98.10 Tympanic 37799 014 63216 7 156.00 mg/dL 44158 015 45431 4 19132 015 94035 7 62.00 mm[Hg] - Sitting 142.00 mm[Hg] - Sitting 98.20 Tympanic 99.00 % 67.00/ min 18.00/min 22728 015 36901 9 120.00 mg/dL 43379 015 71612 7 98.00 Tympanic 20868 015 20780 2 82.00 mm[Hg] - Sitting 119.00 /min 00360 015 89050 9 110.00 mg/dL 98427 015 43991 6 104.00 mg/dL 04838 015 18587 0 100.00 mg/dL 85919 015 16638 2 98.10 Tympanic 06317 015 13637 6 100.00 mg/dL 57655 016 12244 2 67.00 mm[Hg] - Sitting 147.00 mm[Hg] - Sitting 99.00 Tympanic 99.00 % 78.00/ min 20.00/min 33708 016 35040 5 158.00 mg/dL 85099 016 16005 1 158.00 mg/dL 89861 016 61728 2 158.00 mg/dL 35048 016 83790 0 66.00 mm[Hg] - Sitting 121.00 mm[Hg] - Sitting 74.00/ min 42606 016 18388 1 97.00 mg/dL 66128 016 28533 5 97.00 mg/dL 42430 016 29597 4 78.00 mg/dL 85792 016 48732 6 78.00 mg/dL 44091 016 25527 5 248.00 mg/dL 23662 016 04719 8 248.00 mg/dL 05194 017 35898 3 54.00 mm[Hg] - Sitting 142.00 mm[Hg] - Sitting 98.30 Tympanic 99.00 % 76.00/ min 18.00/min 12327 017 73034 4 267.00 mg/dL 91229 017 91045 6 73.00 mm[Hg] - Sitting 109.00 mm[Hg] - Sitting 70.00/ min 00719 017 73634 1 184.00 mg/dL 11636 017 15529 5 184.00 mg/dL 76886 017 81889 9 248.00 mg/dL 98399 017 83343 8 299.00 mg/dL 79960 017 85291 3 299.00 mg/dL 42255 018 52512 3 168.00 mg/dL 018 52183 0 75.00 mm[Hg] - Sitting 121.00 mm[Hg] - Sitting 70.00/ min 018 14016 7 264.00 mg/dL Immunizations Vaccine Date Status COVID-19 09/20/2023 Completed Other 10/08/2023 Completed Shingles 05/27/2011 Completed Tetanus 04/13/2022 Completed TDaP 04/13/2022 Completed Shingles 2 10/05/2018 Completed
--- OUTSIDE RECORDS SUMMARY | 2024-10-03 11:09 | External Medical Summary | Continuity Of Care Document ---
Author Name Unknown Address [address] [address] Organization [facility] () Care Team Providers Care Office Equipment Technician Name Role Phone DO Machado Amy Primary Care Provider [phone] Allergies Allergy Reaction Start Date End Date [...] 3 0.1 mL 08/29 Inactiv e 2023 46487 56725 0 1 time Intrad ermal False Tubersol 5 tub. unit/0.1 mL intradermal injection solution [Tuberculin PPD] 0.1mL Intradermal 1 time For PPD 2nd Step Give 2nd Step PPD Day 1 and Read results Day 3 (schedule 7 days after 1st READ) 0.1mL 09/08 Active 2023 70472 50841 0 1 time Intrad ermal False Humalog [...] order For Diabetes 08/25 Inactiv e 2023 91927 74847 9 4 times a day Subcut aneous False Aspirin 325 mg tablet [generic] 325 By Mouth Twice daily For Anticoagulati on 325 09/25 Active 2023 95958 33484 1 Twice daily By Mouth False Ferrous sulfate 325 mg (65 mg iron) tablet [generic] 325 By Mouth Once daily For anemia 325 2023 Active 2023 69510 10016 5 Once daily By Mouth False Linezolid 600 mg tablet [generic] 600 mg By Mouth Every 12 hours For MRSA INFECTION L BKA 600 mg 08/25 Inactiv e 2023 49657 99100 1 Every 12 hours By Mouth False Cefpodoxime 200 mg tablet [generic] 400 mg By Mouth Twice daily For MRSA INFECTION L BKA 400 mg 08/25 Inactiv e 2023 94414 09486 0 Twice daily By Mouth False Coenzyme Q10 100 mg tablet [generic] 100 mg By Mouth Once daily For SUPP 100 mg 2023 Active 2023 26166 35486 0 Once daily By Mouth False Levothyroxi ne 50 mcg tablet [generic] 50mcg By Mouth Once daily For hypothyroidis m 50mcg 2023 Active 2023 03309 74926 0 Once daily By Mouth False One A Day Men Complete 240 mcg-25 mcg-300 mcg tablet 1 tab By Mouth Once daily For supplement 1 tab 2023 Active 2023 49305 36513 1 Once daily By Mouth False Cholecalcif adalberto (vitamin D3) 50 mcg (2,000 unit) tablet [generic] 1 TAB By Mouth Once daily For SUPP 1 TAB 2023 Active 2023 49017 87459 1 Once daily By Mouth False Cetirizine 10 mg tablet [generic] 1 TAB By Mouth At bedtime For Allergies 1 TAB 2023 Active 2023 30619 16022 0 At bedtime By Mouth False Timolol maleate 0.25 % eye drops [generic] 1 drop Both Eyes Twice daily For glaucoma 1 drop 2023 0000 /0000 Active 2023 50056 45803 5 Twice daily Both Eyes False Alendronate 35 mg tablet [generic] 35mg By Mouth Every week For SIADH 35mg 08/31 Inactiv e 2023 48357 45618 5 Every week By Mouth False Lantus Solostar U-100 Insulin 100 unit/mL (3 mL) subcutaneou s pen 18 units Subcutaneous Every morning For DIABETES 18 units 08/25 Inactiv e 2023 70132 41788 0 Every morning Subcut aneous False Lantus Solostar U-100 Insulin 100 unit/mL (3 mL) subcutaneou s pen 18 units Subcutaneous Every morning For DIABETES 18 units 2023 Active 2023 15820 91840 0 Every morning Subcut aneous False Linezolid 600 mg tablet [generic] 600 mg By Mouth Every 12 hours For MRSA INFECTION L BKA 600 mg 08/28 Inactiv e 2023 76906 82850 1 Every 12 hours By Mouth False [...] order For Diabetes 08/31 Inactiv e 2023 01280 40789 9 4 times a day Subcut aneous False Cefpodoxime 200 mg tablet [generic] 400 mg By Mouth Twice daily For MRSA INFECTION L BKA 400 mg 08/28 Inactiv e 2023 98460 99447 0 Twice daily By Mouth False Brimonidine 0.1 % eye drops [generic] 1 drop Both Eyes Twice daily For glaucoma 1 drop 2023 Active 2023 94363 70914 0 Twice daily Both Eyes False Metoprolol succinate ER 50 mg tablet,exte nded release 24 hr [generic] 50 mg By Mouth Once daily HOLD FOR SBP <100, or pulse <60 For HTN 50 mg 2023 Active 2023 83609 59556 1 Once daily By Mouth False Amlodipine 2.5 mg tablet [generic] 2.5 mg By Mouth Once daily For HTN 2.5 mg 2023 Active 2023 73046 10886 5 Once daily By Mouth False Docusate sodium 100 mg capsule [generic] 100mg By Mouth Twice daily as needed For constipation HOLD FOR LOOSE STOOLS 100mg 2023 Active 2023 88732 14696 1 Twice daily as needed By Mouth False Atorvastati n 40 mg tablet [generic] 40mg By Mouth Once daily For HDL 40mg 08/26 Inactiv e 2023 90403 99020 5 Once daily By Mouth False Tylenol 325 mg tablet 2 tabs By Mouth Every 4 hours as needed For Pain DO NOT EXCEED 3000 MG APAP/24 Hours 2 tabs 2023 Active 2023 70306 62939 0 Every 4 hours as needed By Mouth False Tylenol 325 mg tablet 2 tabs By Mouth Every 4 hours as needed For Fever >100 DO NOT EXCEED 3000 MG APAP/24 Hours 2 tabs 2023 Active 2023 67386 08792 0 Every 4 hours as needed By Mouth False Dulcolax (bisacodyl) 10 mg rectal suppository One Suppository per rectum PRN if Milk of Magnisia ineffective. Give on day 5 of no BM 1 sup 2023 Active 2023 25375 54474 1 Daily as needed Rectal False Fleet Enema 19 gram-7 gram/118 mL Administer per rectum PRN one time if dulcolax suppository not effective. Give on day 6 of no BM 1 2023 Active 2023 06958 61677 6 Daily as needed Rectal False Dextrose 50 % in water (D50W) intravenous solution [generic] Dextrose 50% evonne 20-50 ml (slow push) Intravenous if Glucagon not effective after 15 minutes. CALL 911 for ED Evaluation. 50% evonne 2023 Active 2023 68245 37165 9 Intrav enous False Glucagon (HCl) Emergency Kit 1 mg solution for injection Administer Glucagon 1 mg Intramuscular if 15 minutes after GLucose Gel is administered Glucose remains less than 70 1 mg 2023 Active 2023 10039 55413 2 Intram uscula r False Glucose Gel 40 % oral gel [Dextrose] PRN If resident is unable to swallow (with or without symptoms) and Glucose results less than 70 give GLucose 40% Gel 1 tube orally - Recheck Glucose 15 minutes after administratio n. 1 tube 2023 Active 2023 00300 28175 8 By Mouth False Milk of Magnesia 400 mg/5 mL oral suspension [Magnesium hydroxide] PRN 30ml By Mouth Daily as needed for constipation one time daily if no BM, on day 4 of no BM (PRN refer to instructions) For Constipation 30 mL 2023 Active 2023 35857 83611 6 Daily as needed By Mouth False Atorvastati n 40 mg tablet [generic] 08/26 Inactiv e 2023 70320 02608 5 Atorvastati n 40 mg tablet [generic] 40mg By Mouth Once daily For HDL 40mg 2023 Active 2023 65358 02371 5 Once daily By Mouth False Insulin aspart (U-100) 100 unit/mL (3 mL) subcutaneou s pen [generic] 15 units Subcutaneous 1 time For dm 15 units 08/26 Inactiv e 2023 85200 39444 5 1 time Subcut aneous False Humalog KwikPen (U-100) Insulin 100 unit/mL subcutaneou s 15 units Subcutaneous 1 time For dm 15 units 08/27 Inactiv e 2023 54224 63028 9 1 time Subcut aneous False Linezolid 600 mg tablet [generic] 600 mg By Mouth Every 12 hours For MRSA INFECTION L BKA 600 mg 09/06 Inactiv e 2023 53216 99474 1 Every 12 hours By Mouth False Cefpodoxime 200 mg tablet [generic] 400 mg By Mouth Twice daily For MRSA INFECTION L BKA 400 mg 08/31 Inactiv e 2023 12752 56221 0 Twice daily By Mouth False Senna 8.6 mg tablet 8.6 mg By Mouth Once daily For Constipation 8.6 mg 09/07 Inactiv e 2023 03386 35068 1 Once daily By Mouth False Humalog [...] abnormalities . Per Carb 2023 Active 2023 95590 09348 9 4 times a day Subcut aneous False Alendronate 35 mg tablet [generic] 08/31 Inactiv e 2023 27706 23171 5 Alendronate 35 mg tablet [generic] 35mg By Mouth Every week For Osteoporosis 35mg 2023 Active 2023 54045 31280 5 Every week By Mouth False ProSource 10 gram-100 kcal/30 mL oral liquid 30 ml By Mouth Once daily For wound healing 30 ml 2023 Active 2023 64680 55712 2 Once daily By Mouth False Clotrimazol e 1 % topical cream [generic] 1 applicaiton Topical Twice daily For tinea, apply to groin rash after cleansing and throughouly drying. Can discontinue order 3 days after rash resolves. 1 applica stacy 09/19 Active 2023 83209 86254 0 Twice daily Topica l False MAGIC MIX 1:1:1:1 : ZINC OXIDE EXTERNAL OINTMENT 40%; HYDROCOTISO NE EXTERNAL CREAM 1%; NYSTATIN EXTERNAL CREAM 314460Y/GM; SILVADENE CREAM 1% Every shift Apply topically to MASD area on coccyx/buttoc ks each shift and as needed for incontinence care For MASD on coccyx layer 2023 Active 2023 Every shift Topica l False Senna 8.6 mg tablet 8.6 mg By Mouth Once daily For Constipation 8.6 mg 09/07 Inactiv e 2023 75510 92361 1 Once daily By Mouth False Senna 8.6 mg tablet 8.6 mg By Mouth Once daily As Needed For Constipation 8.6 mg 2023 Active 2023 03449 49020 1 Once daily By Mouth False BD AutoShield Duo Pen Needle 30 gauge x 3/16in 1 pen needle Subcutaneous 4 times a day For DM 1 pen needle 2023 Active 2023 06786 33519 5 4 times a day Subcut aneous False Humalog KwikPen (U-100) Insulin 100 unit/mL subcutaneou s 08/31 Inactiv e 2023 03669 56673 9 MediHoney HCS 4 1/2in X 4 1/2in bandage Cleanse area with NSS, apply one medihoney hydrocolloid dressing, non adherent dressing, kerlix secure with paper tape daily. For wound stage III 1 2023 Active 2023 28922 60611 1 Once daily Topica l False Problems Code Description Start Date End Date Status D64.9 Anemia, unspecified 08/25/2024 Activ e I25.10 Atherosclerotic hear t disease of [place] coronary artery without angina pectoris 08/25/2024 Active [...] weight Temperature SpO2 Blood Sugar Pulse Respirations 02541 8 67.00 mm[Hg] - Sitting 145.00 mm[Hg] - Sitting 98.50 Forehead Scan 96.00 % 81.00/ min 16.00/min 38967 2 67.00 mm[Hg] - Sitting 145.00 mm[Hg] - Sitting 98.50 Tympanic 81.00/ min 16.00/min 04453 004 22628 5 56.00 mm[Hg] - Sitting 142.00 mm[Hg] - Sitting 136.40 NI 100.20 Tympanic 96.00 % 92.00/ min 18.00/min 84520 004 36840 6 63552 004 98538 4 143.00 mg/dL 83387 004 08275 0 97.80 Tympanic 44800 005 34785 7 60.00 mm[Hg] - Sitting 140.00 mm[Hg] - Sitting 98.00 Tympanic 84.00/ min 18.00/min 91558 005 12725 0 63.00 mm[Hg] - Sitting 141.00 mm[Hg] - Sitting 98.20 Tympanic 92.00 % 63.00/ min 16.00/min 77937 005 27153 8 69.00 mm[Hg] - Sitting 106.00 mm[Hg] - Sitting 97.20 Tympanic 19909 005 26673 7 69.00/ min 16.00/min 28744 005 56365 3 69.00 mm[Hg] - Sitting 106.00 mm[Hg] - Sitting 98.20 Tympanic 69.00/ min 16.00/min 87488 005 14374 1 367.00 mg/dL 11564 005 24405 2 97.20 Tympanic 59716 005 12613 4 97.20 Tympanic 64590 005 32608 0 69.00 mm[Hg] - Sitting 106.00 mm[Hg] - Sitting 69.00/ min 51605 005 60564 3 452.00 mg/dL 51082 005 52611 3 452.00 mg/dL 53599 005 51810 5 352.00 mg/dL 78302 005 01395 3 352.00 mg/dL 14983 005 66109 7 98.20 Tympanic 36899 005 62126 3 101.00 mg/dL 08563 005 92800 8 101.00 mg/dL 57252 006 81192 4 66.00 mm[Hg] - Sitting 107.00 mm[Hg] - Sitting 98.00 Tympanic 66.00/ min 18.00/min 29048 006 63275 0 62.00 mm[Hg] - Sitting 162.00 mm[Hg] - Sitting 98.20 Tympanic 96.00 % 60.00/ min 16.00/min 83722 006 58431 4 62.00 mm[Hg] - Sitting 162.00 mm[Hg] - Sitting 98.00 Tympanic 70.00/ min 18.00/min 33944 006 85592 8 62.00 mm[Hg] - Sitting 162.00 mm[Hg] - Sitting 98.20 Tympanic 70.00/ min 18.00/min 54934 006 43906 2 66.00 mm[Hg] - Sitting 132.00 mm[Hg] - Sitting 98.60 Tympanic 74.00/ min 16.00/min 53456 006 75437 5 159.00 mg/dL 91607 006 04891 1 159.00 mg/dL 71490 006 77688 8 98.00 Tympanic 79371 006 07654 2 62.00 mm[Hg] - Sitting 162.00 mm[Hg] - Sitting 70.00/ min 42664 006 32322 7 264.00 mg/dL 98607 006 69208 7 264.00 mg/dL 72607 006 54591 4 196.00 mg/dL 72898 006 55541 3 98.20 Tympanic 22572 006 50201 6 271.00 mg/dL 18224 007 40204 3 97.20 Tympanic 15957 007 91171 2 63.00 mm[Hg] - Sitting 132.00 mm[Hg] - Sitting 98.50 Tympanic 94.00 % 66.00/ min 16.00/min 58999 007 72424 5 188.00 mg/dL 81153 007 78824 2 188.00 mg/dL 80081 007 17456 2 188.00 mg/dL 77230 007 47442 7 97.20 Tympanic 59745 007 25456 6 97.20 Tympanic 74626 007 64913 5 67.00 mm[Hg] - Sitting 152.00 mm[Hg] - Sitting 68.00/ min 64215 007 12138 0 141.00 mg/dL 59909 007 98866 3 141.00 mg/dL 27574 007 21019 1 366.00 mg/dL 89567 007 79884 7 366.00 mg/dL 62289 007 36750 7 98.00 Tympanic 48112 007 09193 6 324.00 mg/dL 48001 007 48827 3 98.00 Tympanic 09893 007 24033 7 324.00 mg/dL 81214 008 07635 0 98.00 Tympanic 33725 008 62685 2 97.90 Tympanic 44971 008 58641 0 98.20 Tympanic 60834 008 25759 0 73.00 mm[Hg] - Sitting 156.00 mm[Hg] - Sitting 98.60 Tympanic 99.00 % 66.00/ min 20.00/min 59670 008 85325 5 137.00 mg/dL 82565 008 57704 7 137.00 mg/dL 74969 008 16703 2 97.90 Tympanic 53916 008 52583 1 137.00 mg/dL 11662 008 76526 8 97.90 Tympanic 96787 008 31591 5 67.00 mm[Hg] - Sitting 124.00 /min 88624 008 73794 6 212.00 mg/dL 71103 008 87878 6 212.00 mg/dL 71213 008 05522 9 317.00 mg/dL 09085 008 83050 4 317.00 mg/dL 24821 008 17901 8 252.00 mg/dL 43360 008 02211 0 98.70 Tympanic 83381 008 03696 7 252.00 mg/dL 52967 008 51343 3 98.70 Tympanic 29653 009 55502 9 98.70 Tympanic 16023 009 22783 3 98.20 Tympanic 06720 009 18361 5 98.40 Tympanic 95778 009 71848 5 57.00 mm[Hg] - Sitting 129.00 mm[Hg] - Sitting 98.30 Tympanic 97.00 % 65.00/ min 18.00/min 17477 009 41209 1 255.00 mg/dL 31460 009 35781 4 255.00 mg/dL 13913 009 47085 5 98.20 Tympanic 11001 009 81809 0 255.00 mg/dL 10182 009 95470 0 98.20 Tympanic 35692 009 38980 4 63.00 mm[Hg] - Lying Down 102.00 mm[Hg] - Lying Down 58.00/ min 53987 009 33692 0 167.00 mg/dL 29085 009 36810 1 167.00 mg/dL 68780 009 38188 2 164.00 mg/dL 00066 009 57797 1 164.00 mg/dL 34169 009 14753 5 208.00 mg/dL 48528 010 80804 3 98.40 Tympanic 89647 010 36146 5 98.40 Tympanic 48247 010 22728 7 66 [place] [address] 010 65914 4 60.00 mm[Hg] - Sitting 143.00 mm[Hg] - Sitting 98.90 Tympanic 98.00 % 67.00/ min 18.00/min 12296 010 96894 2 214.00 mg/dL 52913 010 28286 0 214.00 mg/dL 24453 010 26852 7 214.00 mg/dL 48131 010 36410 6 64.00 mm[Hg] - Sitting 110.00 mm[Hg] - Sitting 72.00/ min 54524 010 24440 7 98.40 Tympanic 25883 010 59904 1 212.00 mg/dL 32618 010 29044 2 212.00 mg/dL 78030 010 75880 1 115.00 mg/dL 09659 010 27552 0 115.00 mg/dL 93205 010 39315 4 98.50 Tympanic 20900 010 32668 4 150.00 mg/dL 30806 010 37541 0 150.00 mg/dL 90645 011 03422 9 98.60 Tympanic 93852 011 76898 1 67.00 mm[Hg] - Sitting 144.00 mm[Hg] - Sitting 98.20 Tympanic 98.00 % 61.00/ min 18.00/min 07171 011 95923 7 290.00 mg/dL 05463 011 47996 2 290.00 mg/dL 53398 011 82646 2 290.00 mg/dL 39189 011 95929 7 54.00 mm[Hg] - Sitting 136.00 mm[Hg] - Sitting 101.00 /min 21319 011 18129 7 98.60 Tympanic 08709 011 51827 5 240.00 mg/dL 89108 011 23345 1 240.00 mg/dL 77470 011 55475 1 156.00 mg/dL 29057 011 19480 9 156.00 mg/dL 31349 011 08715 0 97.80 Tympanic 86566 011 17498 8 343.00 mg/dL 47452 012 95445 9 97.90 Tympanic 65841 012 83153 2 466.00 mg/dL 88628 012 12783 1 466.00 mg/dL 05367 012 74404 3 466.00 mg/dL 86259 012 36697 8 97.90 Tympanic 36303 012 24040 8 56.00 mm[Hg] - Sitting 96.00 mm[Hg] - Sitting 61.00/ min 02895 012 17565 7 350.00 mg/dL 33105 012 78559 5 350.00 mg/dL 88599 012 89731 6 111.00 mg/dL 19910 012 02347 0 111.00 mg/dL 43525 012 52866 5 98.40 Tympanic 26115 012 03487 6 114.00 mg/dL 38934 013 93659 4 74.00 mm[Hg] - Sitting 112.00 mm[Hg] - Sitting 98.40 Tympanic 70.00/ min 18.00/min 37947 013 16185 8 244.00 mg/dL 77953 013 57471 7 244.00 mg/dL 11183 013 04249 1 244.00 mg/dL 64903 013 63560 1 98.20 Tympanic 56810 013 88310 7 72.00 mm[Hg] - Sitting 119.00 mm[Hg] - Sitting 76.00/ min 74016 013 74812 7 253.00 mg/dL 02196 013 57058 4 253.00 mg/dL 78586 013 24133 9 156.00 mg/dL 56449 013 82022 5 156.00 mg/dL 58736 013 85327 4 97.90 Tympanic 26208 013 39583 5 189.00 mg/dL 10946 014 25688 9 98.10 Tympanic 70361 014 23448 0 61.00 mm[Hg] - Sitting 139.00 mm[Hg] - Sitting 98.20 Forehead Scan 99.00 % 66.00/ min 18.00/min 04194 014 08247 3 169.00 mg/dL 19829 014 87481 3 98.10 Tympanic 11761 014 84515 3 75.00 mm[Hg] - Sitting 121.00 mm[Hg] - Sitting 71.00/ min 23457 014 01416 9 221.00 mg/dL 86122 014 69026 9 62.00 mg/dL 42796 014 39006 5 62.00 mg/dL 28395 014 31141 8 156.00 mg/dL 49639 014 34467 6 98.10 Tympanic 12504 014 74830 7 156.00 mg/dL 76804 015 64171 4 85391 015 30829 7 62.00 mm[Hg] - Sitting 142.00 mm[Hg] - Sitting 98.20 Tympanic 99.00 % 67.00/ min 18.00/min 77204 015 84343 9 120.00 mg/dL 14536 015 95063 7 98.00 Tympanic 56790 015 54314 2 82.00 mm[Hg] - Sitting 119.00 /min 59053 015 28548 9 110.00 mg/dL 81342 015 08586 6 104.00 mg/dL 94223 015 91964 0 100.00 mg/dL 07789 015 72409 2 98.10 Tympanic 79663 015 87828 6 100.00 mg/dL 87700 016 34253 2 67.00 mm[Hg] - Sitting 147.00 mm[Hg] - Sitting 99.00 Tympanic 99.00 % 78.00/ min 20.00/min 89387 016 22439 5 158.00 mg/dL 63651 016 38546 1 158.00 mg/dL 10592 016 91809 2 158.00 mg/dL 57587 016 59746 0 66.00 mm[Hg] - Sitting 121.00 mm[Hg] - Sitting 74.00/ min 59474 016 80759 1 97.00 mg/dL 06652 016 70937 5 97.00 mg/dL 78896 016 04604 4 78.00 mg/dL 58934 016 56826 6 78.00 mg/dL 75898 016 80505 5 248.00 mg/dL 30022 016 18600 8 248.00 mg/dL 55270 017 49099 4 267.00 mg/dL 06533 017 59766 6 73.00 mm[Hg] - Sitting 109.00 mm[Hg] - Sitting 70.00/ min 16078 017 79393 1 184.00 mg/dL 45421 017 92110 5 184.00 mg/dL 97258 017 11137 9 248.00 mg/dL 18684 017 36821 8 299.00 mg/dL 38415 017 92327 3 299.00 mg/dL Immunizations Vaccine Date Status COVID-19 09/20/2023 Completed Other 10/08/2023 Completed Shingles 05/27/2011 Completed Tetanus 04/13/2022 Completed TDaP 04/13/2022 Completed Shingles 2 10/05/2018 Completed
--- OUTSIDE RECORDS SUMMARY | 2024-10-03 11:09 | External Medical Summary | Continuity Of Care Document ---
Author Name Unknown Address [address] [address] Organization [facility] () Care Team Providers Care Inspector And Clipper Name Role Phone DO Machado Amy Primary Care Provider [phone] Allergies Allergy Reaction Start Date End Date [...] 3 0.1 mL 08/29 Inactiv e 2023 39860 46754 0 1 time Intrad ermal False Tubersol 5 tub. unit/0.1 mL intradermal injection solution [Tuberculin PPD] 0.1mL Intradermal 1 time For PPD 2nd Step Give 2nd Step PPD Day 1 and Read results Day 3 (schedule 7 days after 1st READ) 0.1mL 09/08 Inactiv e 2023 73915 72170 0 1 time Intrad ermal False Humalog [...] order For Diabetes 08/25 Inactiv e 2023 37157 97182 9 4 times a day Subcut aneous False Aspirin 325 mg tablet [generic] 325 By Mouth Twice daily For Anticoagulati on 325 09/25 Active 2023 23093 72979 1 Twice daily By Mouth False Ferrous sulfate 325 mg (65 mg iron) tablet [generic] 325 By Mouth Once daily For anemia 325 2023 Active 2023 14699 61925 5 Once daily By Mouth False Linezolid 600 mg tablet [generic] 600 mg By Mouth Every 12 hours For MRSA INFECTION L BKA 600 mg 08/25 Inactiv e 2023 78802 77358 1 Every 12 hours By Mouth False Cefpodoxime 200 mg tablet [generic] 400 mg By Mouth Twice daily For MRSA INFECTION L BKA 400 mg 08/25 Inactiv e 2023 82297 28650 0 Twice daily By Mouth False Coenzyme Q10 100 mg tablet [generic] 100 mg By Mouth Once daily For SUPP 100 mg 2023 Active 2023 67354 59057 0 Once daily By Mouth False Levothyroxi ne 50 mcg tablet [generic] 50mcg By Mouth Once daily For hypothyroidis m 50mcg 2023 Active 2023 03725 74953 0 Once daily By Mouth False One A Day Men Complete 240 mcg-25 mcg-300 mcg tablet 1 tab By Mouth Once daily For supplement 1 tab 2023 Active 2023 49536 22105 1 Once daily By Mouth False Cholecalcif adalberto (vitamin D3) 50 mcg (2,000 unit) tablet [generic] 1 TAB By Mouth Once daily For SUPP 1 TAB 2023 Active 2023 72022 45185 1 Once daily By Mouth False Cetirizine 10 mg tablet [generic] 1 TAB By Mouth At bedtime For Allergies 1 TAB 2023 Active 2023 31513 06375 0 At bedtime By Mouth False Timolol maleate 0.25 % eye drops [generic] 1 drop Both Eyes Twice daily For glaucoma 1 drop 2023 0000 0000 Active 2023 92229 62478 5 Twice daily Both Eyes False Alendronate 35 mg tablet [generic] 35mg By Mouth Every week For SIADH 35mg 08/31 Inactiv e 2023 52914 89657 5 Every week By Mouth False Lantus Solostar U-100 Insulin 100 unit/mL (3 mL) subcutaneou s pen 18 units Subcutaneous Every morning For DIABETES 18 units 08/25 Inactiv e 2023 08867 03056 0 Every morning Subcut aneous False Lantus Solostar U-100 Insulin 100 unit/mL (3 mL) subcutaneou s pen 18 units Subcutaneous Every morning For DIABETES 18 units 2023 Active 2023 97137 15231 0 Every morning Subcut aneous False Linezolid 600 mg tablet [generic] 600 mg By Mouth Every 12 hours For MRSA INFECTION L BKA 600 mg 08/28 Inactiv e 2023 27039 57274 1 Every 12 hours By Mouth False [...] order For Diabetes 08/31 Inactiv e 2023 16898 39108 9 4 times a day Subcut aneous False Cefpodoxime 200 mg tablet [generic] 400 mg By Mouth Twice daily For MRSA INFECTION L BKA 400 mg 08/28 Inactiv e 2023 11888 37975 0 Twice daily By Mouth False Brimonidine 0.1 % eye drops [generic] 1 drop Both Eyes Twice daily For glaucoma 1 drop 2023 Active 2023 20305 07502 0 Twice daily Both Eyes False Metoprolol succinate ER 50 mg tablet,exte nded release 24 hr [generic] 50 mg By Mouth Once daily HOLD FOR SBP <100, or pulse <60 For HTN 50 mg 2023 Active 2023 51233 57766 1 Once daily By Mouth False Amlodipine 2.5 mg tablet [generic] 2.5 mg By Mouth Once daily For HTN 2.5 mg 2023 Active 2023 14771 08210 5 Once daily By Mouth False Docusate sodium 100 mg capsule [generic] 100mg By Mouth Twice daily as needed For constipation HOLD FOR LOOSE STOOLS 100mg 2023 Active 2023 48585 17780 1 Twice daily as needed By Mouth False Atorvastati n 40 mg tablet [generic] 40mg By Mouth Once daily For HDL 40mg 08/26 Inactiv e 2023 02041 58245 5 Once daily By Mouth False Tylenol 325 mg tablet 2 tabs By Mouth Every 4 hours as needed For Pain DO NOT EXCEED 3000 MG APAP/24 Hours 2 tabs 2023 Active 2023 03381 96556 0 Every 4 hours as needed By Mouth False Tylenol 325 mg tablet 2 tabs By Mouth Every 4 hours as needed For Fever >100 DO NOT EXCEED 3000 MG APAP/24 Hours 2 tabs 2023 Active 2023 04158 59977 0 Every 4 hours as needed By Mouth False Dulcolax (bisacodyl) 10 mg rectal suppository One Suppository per rectum PRN if Milk of Magnisia ineffective. Give on day 5 of no BM 1 sup 2023 Active 2023 37514 58446 1 Daily as needed Rectal False Fleet Enema 19 gram-7 gram/118 mL Administer per rectum PRN one time if dulcolax suppository not effective. Give on day 6 of no BM 1 2023 Active 2023 12870 74423 6 Daily as needed Rectal False Dextrose 50 % in water (D50W) intravenous solution [generic] Dextrose 50% evonne 20-50 ml (slow push) Intravenous if Glucagon not effective after 15 minutes. CALL 911 for ED Evaluation. 50% evonne 2023 Active 2023 06522 91597 9 Intrav enous False Glucagon (HCl) Emergency Kit 1 mg solution for injection Administer Glucagon 1 mg Intramuscular if 15 minutes after GLucose Gel is administered Glucose remains less than 70 1 mg 2023 Active 2023 72454 14016 2 Intram uscula r False Glucose Gel 40 % oral gel [Dextrose] PRN If resident is unable to swallow (with or without symptoms) and Glucose results less than 70 give GLucose 40% Gel 1 tube orally - Recheck Glucose 15 minutes after administratio n. 1 tube 2023 Active 2023 01236 46372 8 By Mouth False Milk of Magnesia 400 mg/5 mL oral suspension [Magnesium hydroxide] PRN 30ml By Mouth Daily as needed for constipation one time daily if no BM, on day 4 of no BM (PRN refer to instructions) For Constipation 30 mL 2023 Active 2023 09079 63462 6 Daily as needed By Mouth False Atorvastati n 40 mg tablet [generic] 08/26 Inactiv e 2023 94906 90639 5 Atorvastati n 40 mg tablet [generic] 40mg By Mouth Once daily For HDL 40mg 2023 Active 2023 51553 37178 5 Once daily By Mouth False Insulin aspart (U-100) 100 unit/mL (3 mL) subcutaneou s pen [generic] 15 units Subcutaneous 1 time For dm 15 units 08/26 Inactiv e 2023 40725 68825 5 1 time Subcut aneous False Humalog KwikPen (U-100) Insulin 100 unit/mL subcutaneou s 15 units Subcutaneous 1 time For dm 15 units 08/27 Inactiv e 2023 17930 01756 9 1 time Subcut aneous False Linezolid 600 mg tablet [generic] 600 mg By Mouth Every 12 hours For MRSA INFECTION L BKA 600 mg 09/06 Inactiv e 2023 17140 95627 1 Every 12 hours By Mouth False Cefpodoxime 200 mg tablet [generic] 400 mg By Mouth Twice daily For MRSA INFECTION L BKA 400 mg 08/31 Inactiv e 2023 17844 96770 0 Twice daily By Mouth False Senna 8.6 mg tablet 8.6 mg By Mouth Once daily For Constipation 8.6 mg 09/07 Inactiv e 2023 06926 40162 1 Once daily By Mouth False Humalog [...] abnormalities . Per Carb 2023 Active 2023 71010 24949 9 4 times a day Subcut aneous False Alendronate 35 mg tablet [generic] 08/31 Inactiv e 2023 85728 28841 5 Alendronate 35 mg tablet [generic] 35mg By Mouth Every week For Osteoporosis 35mg 2023 Active 2023 45373 52358 5 Every week By Mouth False ProSource 10 gram-100 kcal/30 mL oral liquid 30 ml By Mouth Once daily For wound healing 30 ml 2023 Active 2023 29683 56956 2 Once daily By Mouth False Clotrimazol e 1 % topical cream [generic] 1 applicaiton Topical Twice daily For tinea, apply to groin rash after cleansing and throughouly drying. Can discontinue order 3 days after rash resolves. 1 applica stacy 09/19 Active 2023 12455 59553 0 Twice daily Topica l False MAGIC MIX 1:1:1:1 : ZINC OXIDE EXTERNAL OINTMENT 40%; HYDROCOTISO NE EXTERNAL CREAM 1%; NYSTATIN EXTERNAL CREAM 661809K/GM; SILVADENE CREAM 1% Every shift Apply topically to MASD area on coccyx/buttoc ks each shift and as needed for incontinence care For MASD on coccyx layer 2023 Active 2023 Every shift Topica l False Senna 8.6 mg tablet 8.6 mg By Mouth Once daily For Constipation 8.6 mg 09/07 Inactiv e 2023 22265 50548 1 Once daily By Mouth False Senna 8.6 mg tablet 8.6 mg By Mouth Once daily As Needed For Constipation 8.6 mg 2023 Active 2023 24098 83294 1 Once daily By Mouth False BD AutoShield Duo Pen Needle 30 gauge x 3/16in 1 pen needle Subcutaneous 4 times a day For DM 1 pen needle 2023 Active 2023 98406 91558 5 4 times a day Subcut aneous False Hydrocortis one 1 % topical ointment [generic] 1 application Topical Twice daily For tinea *mix 1:1 with clotrimazole cream and apply to clean/dry groin rash 1 applica peggy 09/19 Active 2023 55101 59445 6 Twice daily Topica l False Humalog KwikPen (U-100) Insulin 100 unit/mL subcutaneou s 08/31 Inactiv e 2023 74335 33288 9 MediHoney HCS 4 1/2in X 4 1/2in bandage Cleanse area with NSS, apply one medihoney hydrocolloid dressing, non adherent dressing, kerlix secure with paper tape daily. For wound stage III 1 2023 Active 2023 68358 50415 1 Once daily Topica l False Problems Code Description Start Date End Date Status D64.9 Anemia, unspecified 08/25/2024 Activ e I25.10 Atherosclerotic hear t disease of [place] coronary artery without angina pectoris 08/25/2024 Active [...] Temperature SpO2 Blood Sugar Pulse Respirations 004 73600 8 67.00 mm[Hg] - Sitting 145.00 mm[Hg] - Sitting 98.50 Forehead Scan 96.00 % 81.00/ min 16.00/min 94884 004 40518 2 67.00 mm[Hg] - Sitting 145.00 mm[Hg] - Sitting 98.50 Tympanic 81.00/ min 16.00/min 17074 004 55740 5 56.00 mm[Hg] - Sitting 142.00 mm[Hg] - Sitting 136.40 NI 100.20 Tympanic 96.00 % 92.00/ min 18.00/min 71579 004 05351 6 03075 004 15625 4 143.00 mg/dL 004 29996 0 97.80 Tympanic 54822 005 32051 7 60.00 mm[Hg] - Sitting 140.00 mm[Hg] - Sitting 98.00 Tympanic 84.00/ min 18.00/min 99769 005 90328 0 63.00 mm[Hg] - Sitting 141.00 mm[Hg] - Sitting 98.20 Tympanic 92.00 % 63.00/ min 16.00/min 06548 005 38585 8 69.00 mm[Hg] - Sitting 106.00 mm[Hg] - Sitting 97.20 Tympanic 54284 005 40965 7 69.00/ min 16.00/min 24417 005 48986 3 69.00 mm[Hg] - Sitting 106.00 mm[Hg] - Sitting 98.20 Tympanic 69.00/ min 16.00/min 33116 005 03925 1 367.00 mg/dL 93986 005 69248 2 97.20 Tympanic 95093 005 92468 4 97.20 Tympanic 24611 005 73972 0 69.00 mm[Hg] - Sitting 106.00 mm[Hg] - Sitting 69.00/ min 29890 005 31507 3 452.00 mg/dL 91451 005 59959 3 452.00 mg/dL 72397 005 26902 5 352.00 mg/dL 33226 005 56098 3 352.00 mg/dL 51538 005 16533 7 98.20 Tympanic 46750 005 19022 3 101.00 mg/dL 56418 005 8 101.00 mg/dL 34228 006 19730 4 66.00 mm[Hg] - Sitting 107.00 mm[Hg] - Sitting 98.00 Tympanic 66.00/ min 18.00/min 93664 006 66709 0 62.00 mm[Hg] - Sitting 162.00 mm[Hg] - Sitting 98.20 Tympanic 96.00 % 60.00/ min 16.00/min 17014 006 17603 4 62.00 mm[Hg] - Sitting 162.00 mm[Hg] - Sitting 98.00 Tympanic 70.00/ min 18.00/min 75264 006 98862 8 62.00 mm[Hg] - Sitting 162.00 mm[Hg] - Sitting 98.20 Tympanic 70.00/ min 18.00/min 77359 006 87223 2 66.00 mm[Hg] - Sitting 132.00 mm[Hg] - Sitting 98.60 Tympanic 74.00/ min 16.00/min 43333 006 08654 5 159.00 mg/dL 03194 006 60972 1 159.00 mg/dL 07012 006 00710 8 98.00 Tympanic 84159 006 71192 2 62.00 mm[Hg] - Sitting 162.00 mm[Hg] - Sitting 70.00/ min 27051 006 89299 7 264.00 mg/dL 25028 006 66807 7 264.00 mg/dL 13518 006 05968 4 196.00 mg/dL 52802 006 23159 3 98.20 Tympanic 32038 006 71448 6 271.00 mg/dL 68684 007 34483 3 97.20 Tympanic 96272 007 52951 2 63.00 mm[Hg] - Sitting 132.00 mm[Hg] - Sitting 98.50 Tympanic 94.00 % 66.00/ min 16.00/min 66918 007 73359 5 188.00 mg/dL 54015 007 56768 2 188.00 mg/dL 98069 007 96338 2 188.00 mg/dL 15900 007 18977 7 97.20 Tympanic 91281 007 49600 6 97.20 Tympanic 70856 007 15920 5 67.00 mm[Hg] - Sitting 152.00 mm[Hg] - Sitting 68.00/ min 14701 007 90291 0 141.00 mg/dL 49142 007 92682 3 141.00 mg/dL 03415 007 62658 1 366.00 mg/dL 89277 007 09681 7 366.00 mg/dL 91600 007 48815 7 98.00 Tympanic 08635 007 20020 6 324.00 mg/dL 66521 007 39508 3 98.00 Tympanic 70354 007 54203 7 324.00 mg/dL 47787 008 15068 0 98.00 Tympanic 16848 008 60710 2 97.90 Tympanic 91975 008 84470 0 98.20 Tympanic 49948 008 68814 0 73.00 mm[Hg] - Sitting 156.00 mm[Hg] - Sitting 98.60 Tympanic 99.00 % 66.00/ min 20.00/min 15081 008 22102 5 137.00 mg/dL 40065 008 96920 7 137.00 mg/dL 42226 008 83488 2 97.90 Tympanic 85570 008 38763 1 137.00 mg/dL 55433 008 84139 8 97.90 Tympanic 86497 008 17431 5 67.00 mm[Hg] - Sitting 124.00 /min 29610 008 93187 6 212.00 mg/dL 57839 008 97233 6 212.00 mg/dL 69874 008 42668 9 317.00 mg/dL 23070 008 90393 4 317.00 mg/dL 11105 008 71742 8 252.00 mg/dL 41858 008 57636 0 98.70 Tympanic 72901 008 97141 7 252.00 mg/dL 27315 008 26595 3 98.70 Tympanic 15408 009 89363 9 98.70 Tympanic 75468 009 73861 3 98.20 Tympanic 24230 009 90766 5 98.40 Tympanic 82750 009 01625 5 57.00 mm[Hg] - Sitting 129.00 mm[Hg] - Sitting 98.30 Tympanic 97.00 % 65.00/ min 18.00/min 57972 009 77001 1 255.00 mg/dL 61875 009 59397 4 255.00 mg/dL 12053 009 70507 5 98.20 Tympanic 73130 009 00548 0 255.00 mg/dL 24353 009 85071 0 98.20 Tympanic 12087 009 87775 4 63.00 mm[Hg] - Lying Down 102.00 mm[Hg] - Lying Down 58.00/ min 16857 009 27626 0 167.00 mg/dL 90677 009 88896 1 167.00 mg/dL 89001 009 56146 2 164.00 mg/dL 96567 009 84131 1 164.00 mg/dL 30609 009 47733 5 208.00 mg/dL 42568 010 36253 3 98.40 Tympanic 10048 010 50293 5 98.40 Tympanic 11645 010 98997 7 66 NI 61490 010 28338 4 60.00 mm[Hg] - Sitting 143.00 mm[Hg] - Sitting 98.90 Tympanic 98.00 % 67.00/ min 18.00/min 41442 010 54670 2 214.00 mg/dL 24328 010 82455 0 214.00 mg/dL 33931 010 58823 7 214.00 mg/dL 10468 010 88939 6 64.00 mm[Hg] - Sitting 110.00 mm[Hg] - Sitting 72.00/ min 68002 010 81567 7 98.40 Tympanic 44738 010 46480 1 212.00 mg/dL 58445 010 44534 2 212.00 mg/dL 12859 010 98454 1 115.00 mg/dL 29589 010 99289 0 115.00 mg/dL 66494 010 84758 4 98.50 Tympanic 08687 010 86146 4 150.00 mg/dL 02709 010 19016 0 150.00 mg/dL 41981 011 60332 9 98.60 Tympanic 15466 011 45376 1 67.00 mm[Hg] - Sitting 144.00 mm[Hg] - Sitting 98.20 Tympanic 98.00 % 61.00/ min 18.00/min 93474 011 47770 7 290.00 mg/dL 54355 011 84299 2 290.00 mg/dL 57347 011 15312 2 290.00 mg/dL 33928 011 92775 7 54.00 mm[Hg] - Sitting 136.00 mm[Hg] - Sitting 101.00 /min 34358 011 79126 7 98.60 Tympanic 40781 011 46929 5 240.00 mg/dL 02189 011 71239 1 240.00 mg/dL 19441 011 91206 1 156.00 mg/dL 49985 011 19997 9 156.00 mg/dL 77663 011 88846 0 97.80 Tympanic 95989 011 15488 8 343.00 mg/dL 89110 012 16621 9 97.90 Tympanic 11125 012 42056 2 466.00 mg/dL 74188 012 76609 1 466.00 mg/dL 27370 012 43546 3 466.00 mg/dL 25942 012 69921 8 97.90 Tympanic 22953 012 14488 8 56.00 mm[Hg] - Sitting 96.00 mm[Hg] - Sitting 61.00/ min 99683 012 12233 7 350.00 mg/dL 14231 012 27222 5 350.00 mg/dL 41756 012 54683 6 111.00 mg/dL 15574 012 69407 0 111.00 mg/dL 89659 012 69152 5 98.40 Tympanic 72712 012 72608 6 114.00 mg/dL 79028 013 73110 4 74.00 mm[Hg] - Sitting 112.00 mm[Hg] - Sitting 98.40 Tympanic 70.00/ min 18.00/min 23949 013 76729 8 244.00 mg/dL 25435 013 58883 7 244.00 mg/dL 64039 013 28546 1 244.00 mg/dL 07086 013 06995 1 98.20 Tympanic 99364 013 85311 7 72.00 mm[Hg] - Sitting 119.00 mm[Hg] - Sitting 76.00/ min 83930 013 16084 7 253.00 mg/dL 52184 013 85538 4 253.00 mg/dL 03353 013 22543 9 156.00 mg/dL 32559 013 29742 5 156.00 mg/dL 16139 013 06792 4 97.90 Tympanic 35179 013 47263 5 189.00 mg/dL 08439 014 16576 9 98.10 Tympanic 29330 014 75265 0 61.00 mm[Hg] - Sitting 139.00 mm[Hg] - Sitting 98.20 Forehead Scan 99.00 % 66.00/ min 18.00/min 21169 014 10312 3 169.00 mg/dL 71047 014 90932 3 98.10 Tympanic 23655 014 08732 3 75.00 mm[Hg] - Sitting 121.00 mm[Hg] - Sitting 71.00/ min 03791 014 94083 9 221.00 mg/dL 90732 014 26782 9 62.00 mg/dL 77337 014 53533 5 62.00 mg/dL 17310 014 99128 8 156.00 mg/dL 52396 014 47226 6 98.10 Tympanic 96026 014 32500 7 156.00 mg/dL 69669 015 07732 4 01341 015 80320 7 62.00 mm[Hg] - Sitting 142.00 mm[Hg] - Sitting 98.20 Tympanic 99.00 % 67.00/ min 18.00/min 30967 015 91902 9 120.00 mg/dL 88700 015 62379 7 98.00 Tympanic 83753 015 85640 2 82.00 mm[Hg] - Sitting 119.00 /min 72966 015 09208 9 110.00 mg/dL 69639 015 59548 6 104.00 mg/dL 64319 015 93646 0 100.00 mg/dL 61671 015 40441 2 98.10 Tympanic 58948 015 24970 6 100.00 mg/dL 37025 016 69823 2 67.00 mm[Hg] - Sitting 147.00 mm[Hg] - Sitting 99.00 Tympanic 99.00 % 78.00/ min 20.00/min 62581 016 41803 5 158.00 mg/dL 15317 016 04317 1 158.00 mg/dL 19984 016 86535 2 158.00 mg/dL 36998 016 38771 0 66.00 mm[Hg] - Sitting 121.00 mm[Hg] - Sitting 74.00/ min 98475 016 21137 1 97.00 mg/dL 29481 016 78861 5 97.00 mg/dL 41171 016 69830 4 78.00 mg/dL 39444 016 68276 6 78.00 mg/dL 56703 016 50255 5 248.00 mg/dL 03181 016 61551 8 248.00 mg/dL 75404 017 09767 3 54.00 mm[Hg] - Sitting 142.00 mm[Hg] - Sitting 98.30 Tympanic 99.00 % 76.00/ min 18.00/min 74974 017 83076 4 267.00 mg/dL 74775 017 76548 6 73.00 mm[Hg] - Sitting 109.00 mm[Hg] - Sitting 70.00/ min 00368 017 92772 1 184.00 mg/dL 43853 017 98153 5 184.00 mg/dL 78710 017 11017 9 248.00 mg/dL 86933 017 59356 8 299.00 mg/dL 11950 017 92985 3 299.00 mg/dL 97507 018 25934 3 168.00 mg/dL 018 95500 0 75.00 mm[Hg] - Sitting 121.00 mm[Hg] - Sitting 70.00/ min 018 80533 7 264.00 mg/dL Immunizations Vaccine Date Status COVID-19 09/20/2023 Completed Other 10/08/2023 Completed Shingles 05/27/2011 Completed Tetanus 04/13/2022 Completed TDaP 04/13/2022 Completed Shingles 2 10/05/2018 Completed
--- OUTSIDE RECORDS SUMMARY | 2024-10-03 11:09 | External Medical Summary | Continuity Of Care Document ---
Author Name Unknown Address [address] [address] Organization [facility] () Care Team Providers Care Back Joiner Name Role Phone DO Machado Amy Primary Care Provider [phone] Allergies Allergy Reaction Start Date End Date [...] 3 0.1 mL 08/29 Inactiv e 2023 45531 04490 0 1 time Intrad ermal False Tubersol 5 tub. unit/0.1 mL intradermal injection solution [Tuberculin PPD] 0.1mL Intradermal 1 time For PPD 2nd Step Give 2nd Step PPD Day 1 and Read results Day 3 (schedule 7 days after 1st READ) 0.1mL 09/08 Inactiv e 2023 43144 84027 0 1 time Intrad ermal False Humalog [...] order For Diabetes 08/25 Inactiv e 2023 76390 47705 9 4 times a day Subcut aneous False Aspirin 325 mg tablet [generic] 325 By Mouth Twice daily For Anticoagulati on 325 09/25 Active 2023 37811 21076 1 Twice daily By Mouth False Ferrous sulfate 325 mg (65 mg iron) tablet [generic] 325 By Mouth Once daily For anemia 325 2023 Active 2023 56771 51895 5 Once daily By Mouth False Linezolid 600 mg tablet [generic] 600 mg By Mouth Every 12 hours For MRSA INFECTION L BKA 600 mg 08/25 Inactiv e 2023 22879 83821 1 Every 12 hours By Mouth False Cefpodoxime 200 mg tablet [generic] 400 mg By Mouth Twice daily For MRSA INFECTION L BKA 400 mg 08/25 Inactiv e 2023 09344 34003 0 Twice daily By Mouth False Coenzyme Q10 100 mg tablet [generic] 100 mg By Mouth Once daily For SUPP 100 mg 2023 Active 2023 38539 06389 0 Once daily By Mouth False Levothyroxi ne 50 mcg tablet [generic] 50mcg By Mouth Once daily For hypothyroidis m 50mcg 2023 Active 2023 35574 23688 0 Once daily By Mouth False One A Day Men Complete 240 mcg-25 mcg-300 mcg tablet 1 tab By Mouth Once daily For supplement 1 tab 2023 Active 2023 32228 60492 1 Once daily By Mouth False Cholecalcif adalberto (vitamin D3) 50 mcg (2,000 unit) tablet [generic] 1 TAB By Mouth Once daily For SUPP 1 TAB 2023 Active 2023 21986 36165 1 Once daily By Mouth False Cetirizine 10 mg tablet [generic] 1 TAB By Mouth At bedtime For Allergies 1 TAB 2023 Active 2023 18020 68279 0 At bedtime By Mouth False Timolol maleate 0.25 % eye drops [generic] 1 drop Both Eyes Twice daily For glaucoma 1 drop 2023 0000 0000 Active 2023 65234 69233 5 Twice daily Both Eyes False Alendronate 35 mg tablet [generic] 35mg By Mouth Every week For SIADH 35mg 08/31 Inactiv e 2023 49026 51146 5 Every week By Mouth False Lantus Solostar U-100 Insulin 100 unit/mL (3 mL) subcutaneou s pen 18 units Subcutaneous Every morning For DIABETES 18 units 08/25 Inactiv e 2023 04887 27342 0 Every morning Subcut aneous False Lantus Solostar U-100 Insulin 100 unit/mL (3 mL) subcutaneou s pen 18 units Subcutaneous Every morning For DIABETES 18 units 2023 Active 2023 94351 37254 0 Every morning Subcut aneous False Linezolid 600 mg tablet [generic] 600 mg By Mouth Every 12 hours For MRSA INFECTION L BKA 600 mg 08/28 Inactiv e 2023 65760 08427 1 Every 12 hours By Mouth False [...] order For Diabetes 08/31 Inactiv e 2023 56964 29310 9 4 times a day Subcut aneous False Cefpodoxime 200 mg tablet [generic] 400 mg By Mouth Twice daily For MRSA INFECTION L BKA 400 mg 08/28 Inactiv e 2023 78530 28881 0 Twice daily By Mouth False Brimonidine 0.1 % eye drops [generic] 1 drop Both Eyes Twice daily For glaucoma 1 drop 2023 Active 2023 97905 49641 0 Twice daily Both Eyes False Metoprolol succinate ER 50 mg tablet,exte nded release 24 hr [generic] 50 mg By Mouth Once daily HOLD FOR SBP <100, or pulse <60 For HTN 50 mg 2023 Active 2023 10735 41310 1 Once daily By Mouth False Amlodipine 2.5 mg tablet [generic] 2.5 mg By Mouth Once daily For HTN 2.5 mg 2023 Active 2023 77378 01964 5 Once daily By Mouth False Docusate sodium 100 mg capsule [generic] 100mg By Mouth Twice daily as needed For constipation HOLD FOR LOOSE STOOLS 100mg 2023 Active 2023 58673 37075 1 Twice daily as needed By Mouth False Atorvastati n 40 mg tablet [generic] 40mg By Mouth Once daily For HDL 40mg 08/26 Inactiv e 2023 35623 63440 5 Once daily By Mouth False Tylenol 325 mg tablet 2 tabs By Mouth Every 4 hours as needed For Pain DO NOT EXCEED 3000 MG APAP/24 Hours 2 tabs 2023 Active 2023 67325 10966 0 Every 4 hours as needed By Mouth False Tylenol 325 mg tablet 2 tabs By Mouth Every 4 hours as needed For Fever >100 DO NOT EXCEED 3000 MG APAP/24 Hours 2 tabs 2023 Active 2023 82385 67199 0 Every 4 hours as needed By Mouth False Dulcolax (bisacodyl) 10 mg rectal suppository One Suppository per rectum PRN if Milk of Magnisia ineffective. Give on day 5 of no BM 1 sup 2023 Active 2023 86408 03893 1 Daily as needed Rectal False Fleet Enema 19 gram-7 gram/118 mL Administer per rectum PRN one time if dulcolax suppository not effective. Give on day 6 of no BM 1 2023 Active 2023 00032 70084 6 Daily as needed Rectal False Dextrose 50 % in water (D50W) intravenous solution [generic] Dextrose 50% evonne 20-50 ml (slow push) Intravenous if Glucagon not effective after 15 minutes. CALL 911 for ED Evaluation. 50% evonne 2023 Active 2023 91583 81973 9 Intrav enous False Glucagon (HCl) Emergency Kit 1 mg solution for injection Administer Glucagon 1 mg Intramuscular if 15 minutes after GLucose Gel is administered Glucose remains less than 70 1 mg 2023 Active 2023 30637 25954 2 Intram uscula r False Glucose Gel 40 % oral gel [Dextrose] PRN If resident is unable to swallow (with or without symptoms) and Glucose results less than 70 give GLucose 40% Gel 1 tube orally - Recheck Glucose 15 minutes after administratio n. 1 tube 2023 Active 2023 23850 45317 8 By Mouth False Milk of Magnesia 400 mg/5 mL oral suspension [Magnesium hydroxide] PRN 30ml By Mouth Daily as needed for constipation one time daily if no BM, on day 4 of no BM (PRN refer to instructions) For Constipation 30 mL 2023 Active 2023 16322 03123 6 Daily as needed By Mouth False Atorvastati n 40 mg tablet [generic] 08/26 Inactiv e 2023 55372 93401 5 Atorvastati n 40 mg tablet [generic] 40mg By Mouth Once daily For HDL 40mg 2023 Active 2023 92541 15854 5 Once daily By Mouth False Insulin aspart (U-100) 100 unit/mL (3 mL) subcutaneou s pen [generic] 15 units Subcutaneous 1 time For dm 15 units 08/26 Inactiv e 2023 09356 67700 5 1 time Subcut aneous False Humalog KwikPen (U-100) Insulin 100 unit/mL subcutaneou s 15 units Subcutaneous 1 time For dm 15 units 08/27 Inactiv e 2023 97778 53650 9 1 time Subcut aneous False Linezolid 600 mg tablet [generic] 600 mg By Mouth Every 12 hours For MRSA INFECTION L BKA 600 mg 09/06 Inactiv e 2023 91100 15437 1 Every 12 hours By Mouth False Cefpodoxime 200 mg tablet [generic] 400 mg By Mouth Twice daily For MRSA INFECTION L BKA 400 mg 08/31 Inactiv e 2023 44499 10280 0 Twice daily By Mouth False Senna 8.6 mg tablet 8.6 mg By Mouth Once daily For Constipation 8.6 mg 09/07 Inactiv e 2023 03249 16014 1 Once daily By Mouth False Humalog [...] abnormalities . Per Carb 2023 Active 2023 33697 51050 9 4 times a day Subcut aneous False Alendronate 35 mg tablet [generic] 08/31 Inactiv e 2023 98182 79122 5 Alendronate 35 mg tablet [generic] 35mg By Mouth Every week For Osteoporosis 35mg 2023 Active 2023 01169 77554 5 Every week By Mouth False ProSource 10 gram-100 kcal/30 mL oral liquid 30 ml By Mouth Once daily For wound healing 30 ml 2023 Active 2023 91855 71042 2 Once daily By Mouth False Clotrimazol e 1 % topical cream [generic] 1 applicaiton Topical Twice daily For tinea, apply to groin rash after cleansing and throughouly drying. Can discontinue order 3 days after rash resolves. 1 applica stacy 09/19 Active 2023 69204 91342 0 Twice daily Topica l False MAGIC MIX 1:1:1:1 : ZINC OXIDE EXTERNAL OINTMENT 40%; HYDROCOTISO NE EXTERNAL CREAM 1%; NYSTATIN EXTERNAL CREAM [id number]/GM; SILVADENE CREAM 1% Every shift Apply topically to MASD area on coccyx/buttoc ks each shift and as needed for incontinence care For MASD on coccyx layer 2023 Active 2023 Every shift Topica l False Senna 8.6 mg tablet 8.6 mg By Mouth Once daily For Constipation 8.6 mg 09/07 Inactiv e 2023 96914 28065 1 Once daily By Mouth False Senna 8.6 mg tablet 8.6 mg By Mouth Once daily As Needed For Constipation 8.6 mg 2023 Active 2023 92194 74085 1 Once daily By Mouth False BD AutoShield Duo Pen Needle 30 gauge x 3/16in 1 pen needle Subcutaneous 4 times a day For DM 1 pen needle 2023 Active 2023 66443 02090 5 4 times a day Subcut aneous False Hydrocortis one 1 % topical ointment [generic] 1 application Topical Twice daily For tinea *mix 1:1 with clotrimazole cream and apply to clean/dry groin rash 1 applica peggy 09/19 Active 2023 13547 13536 6 Twice daily Topica l False Humalog KwikPen (U-100) Insulin 100 unit/mL subcutaneou s 08/31 Inactiv e 2023 48297 55098 9 MediHoney HCS 4 1/2in X 4 1/2in bandage Cleanse area with NSS, apply one medihoney hydrocolloid dressing, non adherent dressing, kerlix secure with paper tape daily. For wound stage III 1 2023 Active 2023 00725 71429 1 Once daily Topica l False Problems Code Description Start Date End Date Status D64.9 Anemia, unspecified 08/25/2024 Activ e I25.10 Atherosclerotic hear t disease of [place] coronary artery without angina pectoris 08/25/2024 Active [...] Temperature SpO2 Blood Sugar Pulse Respirations 004 59100 8 67.00 mm[Hg] - Sitting 145.00 mm[Hg] - Sitting 98.50 Forehead Scan 96.00 % 81.00/ min 16.00/min 50973 004 96594 2 67.00 mm[Hg] - Sitting 145.00 mm[Hg] - Sitting 98.50 Tympanic 81.00/ min 16.00/min 36327 004 38909 5 56.00 mm[Hg] - Sitting 142.00 mm[Hg] - Sitting 136.40 NI 100.20 Tympanic 96.00 % 92.00/ min 18.00/min 17904 004 57686 6 88284 004 21248 4 143.00 mg/dL 004 51146 0 97.80 Tympanic 54969 005 97374 7 60.00 mm[Hg] - Sitting 140.00 mm[Hg] - Sitting 98.00 Tympanic 84.00/ min 18.00/min 83273 005 92549 0 63.00 mm[Hg] - Sitting 141.00 mm[Hg] - Sitting 98.20 Tympanic 92.00 % 63.00/ min 16.00/min 52640 005 07733 8 69.00 mm[Hg] - Sitting 106.00 mm[Hg] - Sitting 97.20 Tympanic 23056 005 93767 7 69.00/ min 16.00/min 29576 005 66346 3 69.00 mm[Hg] - Sitting 106.00 mm[Hg] - Sitting 98.20 Tympanic 69.00/ min 16.00/min 29028 005 48957 1 367.00 mg/dL 02261 005 04095 2 97.20 Tympanic 55346 005 46777 4 97.20 Tympanic 58108 005 25539 0 69.00 mm[Hg] - Sitting 106.00 mm[Hg] - Sitting 69.00/ min 49726 005 81909 3 452.00 mg/dL 32987 005 19154 3 452.00 mg/dL 26952 005 75323 5 352.00 mg/dL 83591 005 15929 3 352.00 mg/dL 12226 005 29288 7 98.20 Tympanic 80477 005 21939 3 101.00 mg/dL 40879 005 8 101.00 mg/dL 91132 006 98150 4 66.00 mm[Hg] - Sitting 107.00 mm[Hg] - Sitting 98.00 Tympanic 66.00/ min 18.00/min 66222 006 85916 0 62.00 mm[Hg] - Sitting 162.00 mm[Hg] - Sitting 98.20 Tympanic 96.00 % 60.00/ min 16.00/min 44159 006 96973 4 62.00 mm[Hg] - Sitting 162.00 mm[Hg] - Sitting 98.00 Tympanic 70.00/ min 18.00/min 96260 006 81730 8 62.00 mm[Hg] - Sitting 162.00 mm[Hg] - Sitting 98.20 Tympanic 70.00/ min 18.00/min 06773 006 60388 2 66.00 mm[Hg] - Sitting 132.00 mm[Hg] - Sitting 98.60 Tympanic 74.00/ min 16.00/min 41248 006 64243 5 159.00 mg/dL 38928 006 83754 1 159.00 mg/dL 76254 006 35950 8 98.00 Tympanic 02153 006 10650 2 62.00 mm[Hg] - Sitting 162.00 mm[Hg] - Sitting 70.00/ min 43517 006 28610 7 264.00 mg/dL 84903 006 04236 7 264.00 mg/dL 63295 006 31248 4 196.00 mg/dL 43144 006 93871 3 98.20 Tympanic 65367 006 06998 6 271.00 mg/dL 59515 007 22497 3 97.20 Tympanic 71797 007 41124 2 63.00 mm[Hg] - Sitting 132.00 mm[Hg] - Sitting 98.50 Tympanic 94.00 % 66.00/ min 16.00/min 09466 007 54356 5 188.00 mg/dL 95737 007 36601 2 188.00 mg/dL 50818 007 66574 2 188.00 mg/dL 02658 007 94512 7 97.20 Tympanic 67614 007 09297 6 97.20 Tympanic 33387 007 78580 5 67.00 mm[Hg] - Sitting 152.00 mm[Hg] - Sitting 68.00/ min 00710 007 92988 0 141.00 mg/dL 77603 007 13893 3 141.00 mg/dL 52543 007 56879 1 366.00 mg/dL 38347 007 71794 7 366.00 mg/dL 06622 007 83109 7 98.00 Tympanic 82145 007 61847 6 324.00 mg/dL 47959 007 52318 3 98.00 Tympanic 63274 007 49034 7 324.00 mg/dL 22583 008 78216 0 98.00 Tympanic 83246 008 88037 2 97.90 Tympanic 48029 008 30825 0 98.20 Tympanic 27604 008 39724 0 73.00 mm[Hg] - Sitting 156.00 mm[Hg] - Sitting 98.60 Tympanic 99.00 % 66.00/ min 20.00/min 53052 008 67948 5 137.00 mg/dL 58054 008 31802 7 137.00 mg/dL 69653 008 49052 2 97.90 Tympanic 70484 008 86828 1 137.00 mg/dL 01202 008 11219 8 97.90 Tympanic 87438 008 44410 5 67.00 mm[Hg] - Sitting 124.00 /min 79213 008 72713 6 212.00 mg/dL 52604 008 03891 6 212.00 mg/dL 63636 008 19585 9 317.00 mg/dL 13326 008 18756 4 317.00 mg/dL 26452 008 09197 8 252.00 mg/dL 12069 008 45529 0 98.70 Tympanic 22270 008 25517 7 252.00 mg/dL 50838 008 83469 3 98.70 Tympanic 05548 009 68976 9 98.70 Tympanic 21729 009 01556 3 98.20 Tympanic 93174 009 20524 5 98.40 Tympanic 65134 009 22751 5 57.00 mm[Hg] - Sitting 129.00 mm[Hg] - Sitting 98.30 Tympanic 97.00 % 65.00/ min 18.00/min 84116 009 15858 1 255.00 mg/dL 18217 009 88182 4 255.00 mg/dL 95077 009 91252 5 98.20 Tympanic 94476 009 68994 0 255.00 mg/dL 57457 009 03684 0 98.20 Tympanic 98987 009 51221 4 63.00 mm[Hg] - Lying Down 102.00 mm[Hg] - Lying Down 58.00/ min 07894 009 06864 0 167.00 mg/dL 07265 009 55330 1 167.00 mg/dL 03482 009 88583 2 164.00 mg/dL 27327 009 24129 1 164.00 mg/dL 98493 009 71355 5 208.00 mg/dL 16338 010 84217 3 98.40 Tympanic 55093 010 83369 5 98.40 Tympanic 43969 010 37136 7 66 [place] [address] 010 40268 4 60.00 mm[Hg] - Sitting 143.00 mm[Hg] - Sitting 98.90 Tympanic 98.00 % 67.00/ min 18.00/min 68458 010 83243 2 214.00 mg/dL 49978 010 91948 0 214.00 mg/dL 39446 010 87777 7 214.00 mg/dL 68010 010 04119 6 64.00 mm[Hg] - Sitting 110.00 mm[Hg] - Sitting 72.00/ min 67137 010 77647 7 98.40 Tympanic 70352 010 47319 1 212.00 mg/dL 38325 010 39342 2 212.00 mg/dL 18164 010 57951 1 115.00 mg/dL 79426 010 38388 0 115.00 mg/dL 92774 010 06558 4 98.50 Tympanic 88840 010 93957 4 150.00 mg/dL 31005 010 13230 0 150.00 mg/dL 30341 011 53945 9 98.60 Tympanic 94695 011 53407 1 67.00 mm[Hg] - Sitting 144.00 mm[Hg] - Sitting 98.20 Tympanic 98.00 % 61.00/ min 18.00/min 11112 011 93435 7 290.00 mg/dL 72851 011 91838 2 290.00 mg/dL 89511 011 73604 2 290.00 mg/dL 09059 011 62410 7 54.00 mm[Hg] - Sitting 136.00 mm[Hg] - Sitting 101.00 /min 07678 011 40534 7 98.60 Tympanic 87679 011 00305 5 240.00 mg/dL 73862 011 29374 1 240.00 mg/dL 96535 011 22567 1 156.00 mg/dL 71498 011 37431 9 156.00 mg/dL 98447 011 40649 0 97.80 Tympanic 81385 011 97723 8 343.00 mg/dL 27818 012 84811 9 97.90 Tympanic 84505 012 47175 2 466.00 mg/dL 09624 012 10666 1 466.00 mg/dL 59228 012 81892 3 466.00 mg/dL 26387 012 31633 8 97.90 Tympanic 31542 012 03630 8 56.00 mm[Hg] - Sitting 96.00 mm[Hg] - Sitting 61.00/ min 45433 012 24125 7 350.00 mg/dL 08815 012 89629 5 350.00 mg/dL 66493 012 14543 6 111.00 mg/dL 29956 012 53797 0 111.00 mg/dL 02853 012 41308 5 98.40 Tympanic 78302 012 73751 6 114.00 mg/dL 99669 013 44546 4 74.00 mm[Hg] - Sitting 112.00 mm[Hg] - Sitting 98.40 Tympanic 70.00/ min 18.00/min 06138 013 89760 8 244.00 mg/dL 94670 013 18498 7 244.00 mg/dL 94698 013 15022 1 244.00 mg/dL 26421 013 96857 1 98.20 Tympanic 10491 013 13207 7 72.00 mm[Hg] - Sitting 119.00 mm[Hg] - Sitting 76.00/ min 38056 013 89310 7 253.00 mg/dL 01588 013 52891 4 253.00 mg/dL 10657 013 27566 9 156.00 mg/dL 34699 013 01237 5 156.00 mg/dL 30518 013 89618 4 97.90 Tympanic 18379 013 25311 5 189.00 mg/dL 26990 014 04105 9 98.10 Tympanic 52561 014 70960 0 61.00 mm[Hg] - Sitting 139.00 mm[Hg] - Sitting 98.20 Forehead Scan 99.00 % 66.00/ min 18.00/min 79848 014 28034 3 169.00 mg/dL 06121 014 04828 3 98.10 Tympanic 70446 014 93510 3 75.00 mm[Hg] - Sitting 121.00 mm[Hg] - Sitting 71.00/ min 73228 014 82091 9 221.00 mg/dL 17202 014 42333 9 62.00 mg/dL 37438 014 71634 5 62.00 mg/dL 59966 014 23060 8 156.00 mg/dL 26987 014 97374 6 98.10 Tympanic 63640 014 94018 7 156.00 mg/dL 70102 015 46382 4 24552 015 91753 7 62.00 mm[Hg] - Sitting 142.00 mm[Hg] - Sitting 98.20 Tympanic 99.00 % 67.00/ min 18.00/min 92761 015 20573 9 120.00 mg/dL 15110 015 68658 7 98.00 Tympanic 37987 015 25814 2 82.00 mm[Hg] - Sitting 119.00 /min 31231 015 60901 9 110.00 mg/dL 01454 015 34270 6 104.00 mg/dL 01286 015 52301 0 100.00 mg/dL 86765 015 25338 2 98.10 Tympanic 67677 015 63048 6 100.00 mg/dL 25662 016 21363 2 67.00 mm[Hg] - Sitting 147.00 mm[Hg] - Sitting 99.00 Tympanic 99.00 % 78.00/ min 20.00/min 08327 016 06368 5 158.00 mg/dL 07873 016 87094 1 158.00 mg/dL 20464 016 54085 2 158.00 mg/dL 80143 016 10188 0 66.00 mm[Hg] - Sitting 121.00 mm[Hg] - Sitting 74.00/ min 67833 016 28704 1 97.00 mg/dL 87894 016 99467 5 97.00 mg/dL 50564 016 31392 4 78.00 mg/dL 65699 016 88502 6 78.00 mg/dL 55310 016 75055 5 248.00 mg/dL 58287 016 27593 8 248.00 mg/dL 14623 017 76943 3 54.00 mm[Hg] - Sitting 142.00 mm[Hg] - Sitting 98.30 Tympanic 99.00 % 76.00/ min 18.00/min 46212 017 75942 4 267.00 mg/dL 41332 017 05254 6 73.00 mm[Hg] - Sitting 109.00 mm[Hg] - Sitting 70.00/ min 38814 017 33406 1 184.00 mg/dL 88087 017 50720 5 184.00 mg/dL 38352 017 17849 9 248.00 mg/dL 87784 017 94247 8 299.00 mg/dL 81511 017 89602 3 299.00 mg/dL 32816 018 40627 3 168.00 mg/dL 018 41126 0 75.00 mm[Hg] - Sitting 121.00 mm[Hg] - Sitting 70.00/ min 018 44848 7 264.00 mg/dL Immunizations Vaccine Date Status COVID-19 09/20/2023 Completed Other 10/08/2023 Completed Shingles 05/27/2011 Completed Tetanus 04/13/2022 Completed TDaP 04/13/2022 Completed Shingles 2 10/05/2018 Completed
--- OUTSIDE RECORDS SUMMARY | 2024-10-03 11:10 | External Medical Summary | Continuity Of Care Document ---
Author Name Unknown Address [address] [address] Organization [facility], [place] () Care Team Providers Care Pattern Maker Programer Name Role Phone DO Machado Amy Primary Care Provider [phone] Allergies Allergy Reaction Start Date End Date [...] 3 0.1 mL 08/29 Inactiv e 2023 40200 73743 0 1 time Intrad ermal False Tubersol 5 tub. unit/0.1 mL intradermal injection solution [Tuberculin PPD] 0.1mL Intradermal 1 time For PPD 2nd Step Give 2nd Step PPD Day 1 and Read results Day 3 (schedule 7 days after 1st READ) 0.1mL 09/08 Inactiv e 2023 50173 59563 0 1 time Intrad ermal False Humalog [...] order For Diabetes 08/25 Inactiv e 2023 28407 41991 9 4 times a day Subcut aneous False Aspirin 325 mg tablet [generic] 325 By Mouth Twice daily For Anticoagulati on 325 09/25 Active 2023 99529 33356 1 Twice daily By Mouth False Ferrous sulfate 325 mg (65 mg iron) tablet [generic] 325 By Mouth Once daily For anemia 325 2023 Active 2023 20606 77263 5 Once daily By Mouth False Linezolid 600 mg tablet [generic] 600 mg By Mouth Every 12 hours For MRSA INFECTION L BKA 600 mg 08/25 Inactiv e 2023 94316 37085 1 Every 12 hours By Mouth False Cefpodoxime 200 mg tablet [generic] 400 mg By Mouth Twice daily For MRSA INFECTION L BKA 400 mg 08/25 Inactiv e 2023 60236 29209 0 Twice daily By Mouth False Coenzyme Q10 100 mg tablet [generic] 100 mg By Mouth Once daily For SUPP 100 mg 2023 Active 2023 36365 78015 0 Once daily By Mouth False Levothyroxi ne 50 mcg tablet [generic] 50mcg By Mouth Once daily For hypothyroidis m 50mcg 2023 Active 2023 72919 93072 0 Once daily By Mouth False One A Day Men Complete 240 mcg-25 mcg-300 mcg tablet 1 tab By Mouth Once daily For supplement 1 tab 2023 Active 2023 37311 37377 1 Once daily By Mouth False Cholecalcif adalberto (vitamin D3) 50 mcg (2,000 unit) tablet [generic] 1 TAB By Mouth Once daily For SUPP 1 TAB 2023 Active 2023 05473 51334 1 Once daily By Mouth False Cetirizine 10 mg tablet [generic] 1 TAB By Mouth At bedtime For Allergies 1 TAB 2023 Active 2023 36627 20251 0 At bedtime By Mouth False Timolol maleate 0.25 % eye drops [generic] 1 drop Both Eyes Twice daily For glaucoma 1 drop 2023 0000 0000 Active 2023 36949 14607 5 Twice daily Both Eyes False Alendronate 35 mg tablet [generic] 35mg By Mouth Every week For SIADH 35mg 08/31 Inactiv e 2023 00756 81949 5 Every week By Mouth False Lantus Solostar U-100 Insulin 100 unit/mL (3 mL) subcutaneou s pen 18 units Subcutaneous Every morning For DIABETES 18 units 08/25 Inactiv e 2023 17718 14331 0 Every morning Subcut aneous False Lantus Solostar U-100 Insulin 100 unit/mL (3 mL) subcutaneou s pen 18 units Subcutaneous Every morning For DIABETES 18 units 2023 Active 2023 14194 25820 0 Every morning Subcut aneous False Linezolid 600 mg tablet [generic] 600 mg By Mouth Every 12 hours For MRSA INFECTION L BKA 600 mg 08/28 Inactiv e 2023 79397 56645 1 Every 12 hours By Mouth False [...] order For Diabetes 08/31 Inactiv e 2023 00089 95261 9 4 times a day Subcut aneous False Cefpodoxime 200 mg tablet [generic] 400 mg By Mouth Twice daily For MRSA INFECTION L BKA 400 mg 08/28 Inactiv e 2023 74348 25526 0 Twice daily By Mouth False Brimonidine 0.1 % eye drops [generic] 1 drop Both Eyes Twice daily For glaucoma 1 drop 2023 Active 2023 61979 51667 0 Twice daily Both Eyes False Metoprolol succinate ER 50 mg tablet,exte nded release 24 hr [generic] 50 mg By Mouth Once daily HOLD FOR SBP <100, or pulse <60 For HTN 50 mg 2023 Active 2023 12088 90521 1 Once daily By Mouth False Amlodipine 2.5 mg tablet [generic] 2.5 mg By Mouth Once daily For HTN 2.5 mg 2023 Active 2023 20798 82447 5 Once daily By Mouth False Docusate sodium 100 mg capsule [generic] 100mg By Mouth Twice daily as needed For constipation HOLD FOR LOOSE STOOLS 100mg 2023 Active 2023 12471 73946 1 Twice daily as needed By Mouth False Atorvastati n 40 mg tablet [generic] 40mg By Mouth Once daily For HDL 40mg 08/26 Inactiv e 2023 41225 66038 5 Once daily By Mouth False Tylenol 325 mg tablet 2 tabs By Mouth Every 4 hours as needed For Pain DO NOT EXCEED 3000 MG APAP/24 Hours 2 tabs 2023 Active 2023 49474 78168 0 Every 4 hours as needed By Mouth False Tylenol 325 mg tablet 2 tabs By Mouth Every 4 hours as needed For Fever >100 DO NOT EXCEED 3000 MG APAP/24 Hours 2 tabs 2023 Active 2023 82243 48167 0 Every 4 hours as needed By Mouth False Dulcolax (bisacodyl) 10 mg rectal suppository One Suppository per rectum PRN if Milk of Magnisia ineffective. Give on day 5 of no BM 1 sup 2023 Active 2023 91863 26116 1 Daily as needed Rectal False Fleet Enema 19 gram-7 gram/118 mL Administer per rectum PRN one time if dulcolax suppository not effective. Give on day 6 of no BM 1 2023 Active 2023 48242 78866 6 Daily as needed Rectal False Dextrose 50 % in water (D50W) intravenous solution [generic] Dextrose 50% evonne 20-50 ml (slow push) Intravenous if Glucagon not effective after 15 minutes. CALL 911 for ED Evaluation. 50% evonne 2023 Active 2023 95429 99485 9 Intrav enous False Glucagon (HCl) Emergency Kit 1 mg solution for injection Administer Glucagon 1 mg Intramuscular if 15 minutes after GLucose Gel is administered Glucose remains less than 70 1 mg 2023 Active 2023 71480 05329 2 Intram uscula r False Glucose Gel 40 % oral gel [Dextrose] PRN If resident is unable to swallow (with or without symptoms) and Glucose results less than 70 give GLucose 40% Gel 1 tube orally - Recheck Glucose 15 minutes after administratio n. 1 tube 2023 Active 2023 20235 84786 8 By Mouth False Milk of Magnesia 400 mg/5 mL oral suspension [Magnesium hydroxide] PRN 30ml By Mouth Daily as needed for constipation one time daily if no BM, on day 4 of no BM (PRN refer to instructions) For Constipation 30 mL 2023 Active 2023 18093 18610 6 Daily as needed By Mouth False Atorvastati n 40 mg tablet [generic] 08/26 Inactiv e 2023 28835 67488 5 Atorvastati n 40 mg tablet [generic] 40mg By Mouth Once daily For HDL 40mg 2023 Active 2023 04972 69726 5 Once daily By Mouth False Insulin aspart (U-100) 100 unit/mL (3 mL) subcutaneou s pen [generic] 15 units Subcutaneous 1 time For dm 15 units 08/26 Inactiv e 2023 78107 12428 5 1 time Subcut aneous False Humalog KwikPen (U-100) Insulin 100 unit/mL subcutaneou s 15 units Subcutaneous 1 time For dm 15 units 08/27 Inactiv e 2023 33550 69555 9 1 time Subcut aneous False Linezolid 600 mg tablet [generic] 600 mg By Mouth Every 12 hours For MRSA INFECTION L BKA 600 mg 09/06 Inactiv e 2023 47186 02804 1 Every 12 hours By Mouth False Cefpodoxime 200 mg tablet [generic] 400 mg By Mouth Twice daily For MRSA INFECTION L BKA 400 mg 08/31 Inactiv e 2023 39377 67930 0 Twice daily By Mouth False Senna 8.6 mg tablet 8.6 mg By Mouth Once daily For Constipation 8.6 mg 09/07 Inactiv e 2023 78614 44393 1 Once daily By Mouth False Humalog [...] abnormalities . Per Carb 2023 Active 2023 62417 83287 9 4 times a day Subcut aneous False Alendronate 35 mg tablet [generic] 08/31 Inactiv e 2023 96420 07507 5 Alendronate 35 mg tablet [generic] 35mg By Mouth Every week For Osteoporosis 35mg 2023 Active 2023 49426 31657 5 Every week By Mouth False ProSource 10 gram-100 kcal/30 mL oral liquid 30 ml By Mouth Once daily For wound healing 30 ml 2023 Active 2023 73225 90833 2 Once daily By Mouth False Clotrimazol e 1 % topical cream [generic] 1 applicaiton Topical Twice daily For tinea, apply to groin rash after cleansing and throughouly drying. Can discontinue order 3 days after rash resolves. 1 applica stacy 09/19 Active 2023 64368 46623 0 Twice daily Topica l False MAGIC MIX 1:1:1:1 : ZINC OXIDE EXTERNAL OINTMENT 40%; HYDROCOTISO NE EXTERNAL CREAM 1%; NYSTATIN EXTERNAL CREAM [id number]/GM; SILVADENE CREAM 1% Every shift Apply topically to MASD area on coccyx/buttoc ks each shift and as needed for incontinence care For MASD on coccyx layer 2023 Active 2023 Every shift Topica l False Senna 8.6 mg tablet 8.6 mg By Mouth Once daily For Constipation 8.6 mg 09/07 Inactiv e 2023 02732 74600 1 Once daily By Mouth False Senna 8.6 mg tablet 8.6 mg By Mouth Once daily As Needed For Constipation 8.6 mg 2023 Active 2023 73640 22569 1 Once daily By Mouth False BD AutoShield Duo Pen Needle 30 gauge x 3/16in 1 pen needle Subcutaneous 4 times a day For DM 1 pen needle 2023 Active 2023 94511 89440 5 4 times a day Subcut aneous False Hydrocortis one 1 % topical ointment [generic] 1 application Topical Twice daily For tinea *mix 1:1 with clotrimazole cream and apply to clean/dry groin rash 1 applica peggy 09/19 Active 2023 04018 49104 6 Twice daily Topica l False Humalog KwikPen (U-100) Insulin 100 unit/mL subcutaneou s 08/31 Inactiv e 2023 76301 38003 9 MediHoney HCS 4 1/2in X 4 1/2in bandage Cleanse area with NSS, apply one medihoney hydrocolloid dressing, non adherent dressing, kerlix secure with paper tape daily. For wound stage III 1 2023 Active 2023 35174 08079 1 Once daily Topica l False Problems Code Description Start Date End Date Status D64.9 Anemia, unspecified 08/25/2024 Activ e I25.10 Atherosclerotic hear t disease of [place] coronary artery without angina pectoris 08/25/2024 Active [...] Temperature SpO2 Blood Sugar Pulse Respirations 004 65929 8 67.00 mm[Hg] - Sitting 145.00 mm[Hg] - Sitting 98.50 Forehead Scan 96.00 % 81.00/ min 16.00/min 87942 004 87018 2 67.00 mm[Hg] - Sitting 145.00 mm[Hg] - Sitting 98.50 Tympanic 81.00/ min 16.00/min 43310 004 37789 5 56.00 mm[Hg] - Sitting 142.00 mm[Hg] - Sitting 136.40 NI 100.20 Tympanic 96.00 % 92.00/ min 18.00/min 81558 004 86972 6 55946 004 18556 4 143.00 mg/dL 004 25305 0 97.80 Tympanic 77530 005 58148 7 60.00 mm[Hg] - Sitting 140.00 mm[Hg] - Sitting 98.00 Tympanic 84.00/ min 18.00/min 10947 005 31231 0 63.00 mm[Hg] - Sitting 141.00 mm[Hg] - Sitting 98.20 Tympanic 92.00 % 63.00/ min 16.00/min 69614 005 97326 8 69.00 mm[Hg] - Sitting 106.00 mm[Hg] - Sitting 97.20 Tympanic 54905 005 70762 7 69.00/ min 16.00/min 44995 005 18451 3 69.00 mm[Hg] - Sitting 106.00 mm[Hg] - Sitting 98.20 Tympanic 69.00/ min 16.00/min 77174 005 53689 1 367.00 mg/dL 07059 005 05698 2 97.20 Tympanic 21901 005 06152 4 97.20 Tympanic 30724 005 43752 0 69.00 mm[Hg] - Sitting 106.00 mm[Hg] - Sitting 69.00/ min 55819 005 38751 3 452.00 mg/dL 36965 005 84688 3 452.00 mg/dL 35879 005 01613 5 352.00 mg/dL 60901 005 25677 3 352.00 mg/dL 83073 005 32046 7 98.20 Tympanic 11079 005 83745 3 101.00 mg/dL 74213 005 8 101.00 mg/dL 70044 006 41037 4 66.00 mm[Hg] - Sitting 107.00 mm[Hg] - Sitting 98.00 Tympanic 66.00/ min 18.00/min 75901 006 62372 0 62.00 mm[Hg] - Sitting 162.00 mm[Hg] - Sitting 98.20 Tympanic 96.00 % 60.00/ min 16.00/min 47402 006 32616 4 62.00 mm[Hg] - Sitting 162.00 mm[Hg] - Sitting 98.00 Tympanic 70.00/ min 18.00/min 87462 006 14587 8 62.00 mm[Hg] - Sitting 162.00 mm[Hg] - Sitting 98.20 Tympanic 70.00/ min 18.00/min 09942 006 36974 2 66.00 mm[Hg] - Sitting 132.00 mm[Hg] - Sitting 98.60 Tympanic 74.00/ min 16.00/min 66563 006 13282 5 159.00 mg/dL 80271 006 43754 1 159.00 mg/dL 25137 006 55389 8 98.00 Tympanic 92215 006 68906 2 62.00 mm[Hg] - Sitting 162.00 mm[Hg] - Sitting 70.00/ min 80743 006 15952 7 264.00 mg/dL 07385 006 70702 7 264.00 mg/dL 35352 006 38533 4 196.00 mg/dL 33070 006 49039 3 98.20 Tympanic 23910 006 44745 6 271.00 mg/dL 56800 007 52496 3 97.20 Tympanic 39928 007 97975 2 63.00 mm[Hg] - Sitting 132.00 mm[Hg] - Sitting 98.50 Tympanic 94.00 % 66.00/ min 16.00/min 07186 007 66658 5 188.00 mg/dL 63712 007 88536 2 188.00 mg/dL 16704 007 99536 2 188.00 mg/dL 51550 007 03390 7 97.20 Tympanic 68780 007 80882 6 97.20 Tympanic 76154 007 86148 5 67.00 mm[Hg] - Sitting 152.00 mm[Hg] - Sitting 68.00/ min 05783 007 42481 0 141.00 mg/dL 94174 007 03085 3 141.00 mg/dL 19927 007 34845 1 366.00 mg/dL 21889 007 95652 7 366.00 mg/dL 10290 007 00238 7 98.00 Tympanic 76427 007 34050 6 324.00 mg/dL 47388 007 68060 3 98.00 Tympanic 85369 007 02873 7 324.00 mg/dL 15528 008 55072 0 98.00 Tympanic 77418 008 81135 2 97.90 Tympanic 28411 008 24953 0 98.20 Tympanic 27431 008 71761 0 73.00 mm[Hg] - Sitting 156.00 mm[Hg] - Sitting 98.60 Tympanic 99.00 % 66.00/ min 20.00/min 91441 008 56233 5 137.00 mg/dL 84046 008 74000 7 137.00 mg/dL 13202 008 58886 2 97.90 Tympanic 22993 008 40924 1 137.00 mg/dL 44826 008 33624 8 97.90 Tympanic 35340 008 50073 5 67.00 mm[Hg] - Sitting 124.00 /min 66721 008 48884 6 212.00 mg/dL 01659 008 21987 6 212.00 mg/dL 09631 008 77117 9 317.00 mg/dL 31335 008 84784 4 317.00 mg/dL 16367 008 42498 8 252.00 mg/dL 49798 008 00255 0 98.70 Tympanic 42181 008 84821 7 252.00 mg/dL 43894 008 14790 3 98.70 Tympanic 82457 009 34281 9 98.70 Tympanic 85083 009 21913 3 98.20 Tympanic 75647 009 70434 5 98.40 Tympanic 10656 009 69781 5 57.00 mm[Hg] - Sitting 129.00 mm[Hg] - Sitting 98.30 Tympanic 97.00 % 65.00/ min 18.00/min 59197 009 11497 1 255.00 mg/dL 00397 009 15171 4 255.00 mg/dL 76025 009 77009 5 98.20 Tympanic 89395 009 99629 0 255.00 mg/dL 66192 009 75650 0 98.20 Tympanic 15705 009 15795 4 63.00 mm[Hg] - Lying Down 102.00 mm[Hg] - Lying Down 58.00/ min 69651 009 39332 0 167.00 mg/dL 06501 009 89065 1 167.00 mg/dL 62258 009 80875 2 164.00 mg/dL 95577 009 61621 1 164.00 mg/dL 16584 009 52577 5 208.00 mg/dL 76165 010 29385 3 98.40 Tympanic 77486 010 57232 5 98.40 Tympanic 07087 010 80358 7 66 NI 94313 010 14065 4 60.00 mm[Hg] - Sitting 143.00 mm[Hg] - Sitting 98.90 Tympanic 98.00 % 67.00/ min 18.00/min 87936 010 79698 2 214.00 mg/dL 09863 010 18453 0 214.00 mg/dL 94956 010 11743 7 214.00 mg/dL 98496 010 78849 6 64.00 mm[Hg] - Sitting 110.00 mm[Hg] - Sitting 72.00/ min 09623 010 48145 7 98.40 Tympanic 36803 010 61267 1 212.00 mg/dL 11731 010 36439 2 212.00 mg/dL 74468 010 20585 1 115.00 mg/dL 37513 010 24118 0 115.00 mg/dL 30223 010 45122 4 98.50 Tympanic 66049 010 48339 4 150.00 mg/dL 01958 010 48531 0 150.00 mg/dL 40443 011 92900 9 98.60 Tympanic 15040 011 00993 1 67.00 mm[Hg] - Sitting 144.00 mm[Hg] - Sitting 98.20 Tympanic 98.00 % 61.00/ min 18.00/min 83907 011 98151 7 290.00 mg/dL 02369 011 51097 2 290.00 mg/dL 23448 011 58556 2 290.00 mg/dL 20560 011 75492 7 54.00 mm[Hg] - Sitting 136.00 mm[Hg] - Sitting 101.00 /min 99412 011 10667 7 98.60 Tympanic 10962 011 00669 5 240.00 mg/dL 97366 011 94787 1 240.00 mg/dL 12194 011 22730 1 156.00 mg/dL 31494 011 00157 9 156.00 mg/dL 78164 011 86703 0 97.80 Tympanic 48657 011 47863 8 343.00 mg/dL 99605 012 26232 9 97.90 Tympanic 39591 012 67121 2 466.00 mg/dL 74661 012 63498 1 466.00 mg/dL 31513 012 48474 3 466.00 mg/dL 75651 012 36639 8 97.90 Tympanic 03698 012 52198 8 56.00 mm[Hg] - Sitting 96.00 mm[Hg] - Sitting 61.00/ min 81950 012 47469 7 350.00 mg/dL 71909 012 77857 5 350.00 mg/dL 87274 012 01914 6 111.00 mg/dL 31568 012 32615 0 111.00 mg/dL 76602 012 02431 5 98.40 Tympanic 70281 012 06483 6 114.00 mg/dL 02905 013 42813 4 74.00 mm[Hg] - Sitting 112.00 mm[Hg] - Sitting 98.40 Tympanic 70.00/ min 18.00/min 32837 013 03329 8 244.00 mg/dL 89119 013 32274 7 244.00 mg/dL 83736 013 07303 1 244.00 mg/dL 17637 013 23236 1 98.20 Tympanic 76576 013 77186 7 72.00 mm[Hg] - Sitting 119.00 mm[Hg] - Sitting 76.00/ min 12028 013 80531 7 253.00 mg/dL 64401 013 13173 4 253.00 mg/dL 67483 013 34860 9 156.00 mg/dL 90555 013 67528 5 156.00 mg/dL 02235 013 20965 4 97.90 Tympanic 37445 013 56731 5 189.00 mg/dL 07371 014 28542 9 98.10 Tympanic 87952 014 14005 0 61.00 mm[Hg] - Sitting 139.00 mm[Hg] - Sitting 98.20 Forehead Scan 99.00 % 66.00/ min 18.00/min 39048 014 27008 3 169.00 mg/dL 96446 014 95432 3 98.10 Tympanic 82636 014 25257 3 75.00 mm[Hg] - Sitting 121.00 mm[Hg] - Sitting 71.00/ min 05162 014 54437 9 221.00 mg/dL 49688 014 06676 9 62.00 mg/dL 66756 014 39609 5 62.00 mg/dL 14036 014 61775 8 156.00 mg/dL 69741 014 36841 6 98.10 Tympanic 85004 014 02649 7 156.00 mg/dL 49631 015 39859 4 92327 015 72698 7 62.00 mm[Hg] - Sitting 142.00 mm[Hg] - Sitting 98.20 Tympanic 99.00 % 67.00/ min 18.00/min 93993 015 33644 9 120.00 mg/dL 38341 015 20513 7 98.00 Tympanic 51950 015 01060 2 82.00 mm[Hg] - Sitting 119.00 /min 00897 015 99664 9 110.00 mg/dL 40927 015 14491 6 104.00 mg/dL 68414 015 13466 0 100.00 mg/dL 24496 015 15966 2 98.10 Tympanic 45966 015 38505 6 100.00 mg/dL 53838 016 70962 2 67.00 mm[Hg] - Sitting 147.00 mm[Hg] - Sitting 99.00 Tympanic 99.00 % 78.00/ min 20.00/min 77709 016 72154 5 158.00 mg/dL 50714 016 59785 1 158.00 mg/dL 53595 016 52663 2 158.00 mg/dL 22878 016 49139 0 66.00 mm[Hg] - Sitting 121.00 mm[Hg] - Sitting 74.00/ min 74483 016 57587 1 97.00 mg/dL 70704 016 76999 5 97.00 mg/dL 70078 016 23131 4 78.00 mg/dL 85167 016 63928 6 78.00 mg/dL 22772 016 71029 5 248.00 mg/dL 90784 016 86687 8 248.00 mg/dL 46029 017 22254 3 54.00 mm[Hg] - Sitting 142.00 mm[Hg] - Sitting 98.30 Tympanic 99.00 % 76.00/ min 18.00/min 54891 017 19876 4 267.00 mg/dL 53573 017 93804 6 73.00 mm[Hg] - Sitting 109.00 mm[Hg] - Sitting 70.00/ min 79382 017 04280 1 184.00 mg/dL 87190 017 91387 5 184.00 mg/dL 04575 017 51536 9 248.00 mg/dL 08772 017 99668 8 299.00 mg/dL 08834 017 24205 3 299.00 mg/dL 23698 018 87379 3 168.00 mg/dL 018 39574 0 75.00 mm[Hg] - Sitting 121.00 mm[Hg] - Sitting 70.00/ min Immunizations Vaccine Date Status COVID-19 09/20/2023 Completed Other 10/08/2023 Completed Shingles 05/27/2011 Completed Tetanus 04/13/2022 Completed TDaP 04/13/2022 Completed Shingles 2 10/05/2018 Completed
--- OUTSIDE RECORDS SUMMARY | 2024-10-03 11:10 | External Medical Summary | Continuity Of Care Document ---
Author Name Unknown Address [address] [address] Organization [facility] () Care Team Providers Care Ict Sales Assistant Name Role Phone DO Machado Amy Primary Care Provider [phone] Allergies Allergy Reaction Start Date End Date [...] 3 0.1 mL 08/29 Inactiv e 2023 83734 84277 0 1 time Intrad ermal False Tubersol 5 tub. unit/0.1 mL intradermal injection solution [Tuberculin PPD] 0.1mL Intradermal 1 time For PPD 2nd Step Give 2nd Step PPD Day 1 and Read results Day 3 (schedule 7 days after 1st READ) 0.1mL 09/08 Inactiv e 2023 88627 56853 0 1 time Intrad ermal False Humalog [...] order For Diabetes 08/25 Inactiv e 2023 49720 74876 9 4 times a day Subcut aneous False Aspirin 325 mg tablet [generic] 325 By Mouth Twice daily For Anticoagulati on 325 09/25 Active 2023 69898 04465 1 Twice daily By Mouth False Ferrous sulfate 325 mg (65 mg iron) tablet [generic] 325 By Mouth Once daily For anemia 325 2023 Active 2023 01148 74264 5 Once daily By Mouth False Linezolid 600 mg tablet [generic] 600 mg By Mouth Every 12 hours For MRSA INFECTION L BKA 600 mg 08/25 Inactiv e 2023 30790 87438 1 Every 12 hours By Mouth False Cefpodoxime 200 mg tablet [generic] 400 mg By Mouth Twice daily For MRSA INFECTION L BKA 400 mg 08/25 Inactiv e 2023 32965 95418 0 Twice daily By Mouth False Coenzyme Q10 100 mg tablet [generic] 100 mg By Mouth Once daily For SUPP 100 mg 2023 Active 2023 14844 09553 0 Once daily By Mouth False Levothyroxi ne 50 mcg tablet [generic] 50mcg By Mouth Once daily For hypothyroidis m 50mcg 2023 Active 2023 83223 66358 0 Once daily By Mouth False One A Day Men Complete 240 mcg-25 mcg-300 mcg tablet 1 tab By Mouth Once daily For supplement 1 tab 2023 Active 2023 76757 70081 1 Once daily By Mouth False Cholecalcif adalberto (vitamin D3) 50 mcg (2,000 unit) tablet [generic] 1 TAB By Mouth Once daily For SUPP 1 TAB 2023 Active 2023 52898 67588 1 Once daily By Mouth False Cetirizine 10 mg tablet [generic] 1 TAB By Mouth At bedtime For Allergies 1 TAB 2023 Active 2023 44169 45656 0 At bedtime By Mouth False Timolol maleate 0.25 % eye drops [generic] 1 drop Both Eyes Twice daily For glaucoma 1 drop 2023 0000 0000 Active 2023 57389 79622 5 Twice daily Both Eyes False Alendronate 35 mg tablet [generic] 35mg By Mouth Every week For SIADH 35mg 08/31 Inactiv e 2023 94369 44011 5 Every week By Mouth False Lantus Solostar U-100 Insulin 100 unit/mL (3 mL) subcutaneou s pen 18 units Subcutaneous Every morning For DIABETES 18 units 08/25 Inactiv e 2023 41623 08153 0 Every morning Subcut aneous False Lantus Solostar U-100 Insulin 100 unit/mL (3 mL) subcutaneou s pen 18 units Subcutaneous Every morning For DIABETES 18 units 2023 Active 2023 79008 85615 0 Every morning Subcut aneous False Linezolid 600 mg tablet [generic] 600 mg By Mouth Every 12 hours For MRSA INFECTION L BKA 600 mg 08/28 Inactiv e 2023 13102 54495 1 Every 12 hours By Mouth False [...] order For Diabetes 08/31 Inactiv e 2023 75804 23359 9 4 times a day Subcut aneous False Cefpodoxime 200 mg tablet [generic] 400 mg By Mouth Twice daily For MRSA INFECTION L BKA 400 mg 08/28 Inactiv e 2023 37101 61398 0 Twice daily By Mouth False Brimonidine 0.1 % eye drops [generic] 1 drop Both Eyes Twice daily For glaucoma 1 drop 2023 Active 2023 45504 30547 0 Twice daily Both Eyes False Metoprolol succinate ER 50 mg tablet,exte nded release 24 hr [generic] 50 mg By Mouth Once daily HOLD FOR SBP <100, or pulse <60 For HTN 50 mg 2023 Active 2023 92854 01540 1 Once daily By Mouth False Amlodipine 2.5 mg tablet [generic] 2.5 mg By Mouth Once daily For HTN 2.5 mg 2023 Active 2023 15667 32771 5 Once daily By Mouth False Docusate sodium 100 mg capsule [generic] 100mg By Mouth Twice daily as needed For constipation HOLD FOR LOOSE STOOLS 100mg 2023 Active 2023 46673 43254 1 Twice daily as needed By Mouth False Atorvastati n 40 mg tablet [generic] 40mg By Mouth Once daily For HDL 40mg 08/26 Inactiv e 2023 79961 96377 5 Once daily By Mouth False Tylenol 325 mg tablet 2 tabs By Mouth Every 4 hours as needed For Pain DO NOT EXCEED 3000 MG APAP/24 Hours 2 tabs 2023 Active 2023 80780 42429 0 Every 4 hours as needed By Mouth False Tylenol 325 mg tablet 2 tabs By Mouth Every 4 hours as needed For Fever >100 DO NOT EXCEED 3000 MG APAP/24 Hours 2 tabs 2023 Active 2023 25768 08347 0 Every 4 hours as needed By Mouth False Dulcolax (bisacodyl) 10 mg rectal suppository One Suppository per rectum PRN if Milk of Magnisia ineffective. Give on day 5 of no BM 1 sup 2023 Active 2023 50800 31886 1 Daily as needed Rectal False Fleet Enema 19 gram-7 gram/118 mL Administer per rectum PRN one time if dulcolax suppository not effective. Give on day 6 of no BM 1 2023 Active 2023 86901 37361 6 Daily as needed Rectal False Dextrose 50 % in water (D50W) intravenous solution [generic] Dextrose 50% evonne 20-50 ml (slow push) Intravenous if Glucagon not effective after 15 minutes. CALL 911 for ED Evaluation. 50% evonne 2023 Active 2023 43530 00579 9 Intrav enous False Glucagon (HCl) Emergency Kit 1 mg solution for injection Administer Glucagon 1 mg Intramuscular if 15 minutes after GLucose Gel is administered Glucose remains less than 70 1 mg 2023 Active 2023 08417 63042 2 Intram uscula r False Glucose Gel 40 % oral gel [Dextrose] PRN If resident is unable to swallow (with or without symptoms) and Glucose results less than 70 give GLucose 40% Gel 1 tube orally - Recheck Glucose 15 minutes after administratio n. 1 tube 2023 Active 2023 53220 04880 8 By Mouth False Milk of Magnesia 400 mg/5 mL oral suspension [Magnesium hydroxide] PRN 30ml By Mouth Daily as needed for constipation one time daily if no BM, on day 4 of no BM (PRN refer to instructions) For Constipation 30 mL 2023 Active 2023 81407 58863 6 Daily as needed By Mouth False Atorvastati n 40 mg tablet [generic] 08/26 Inactiv e 2023 59769 26487 5 Atorvastati n 40 mg tablet [generic] 40mg By Mouth Once daily For HDL 40mg 2023 Active 2023 05053 61636 5 Once daily By Mouth False Insulin aspart (U-100) 100 unit/mL (3 mL) subcutaneou s pen [generic] 15 units Subcutaneous 1 time For dm 15 units 08/26 Inactiv e 2023 91126 23332 5 1 time Subcut aneous False Humalog KwikPen (U-100) Insulin 100 unit/mL subcutaneou s 15 units Subcutaneous 1 time For dm 15 units 08/27 Inactiv e 2023 44680 04186 9 1 time Subcut aneous False Linezolid 600 mg tablet [generic] 600 mg By Mouth Every 12 hours For MRSA INFECTION L BKA 600 mg 09/06 Inactiv e 2023 79144 34125 1 Every 12 hours By Mouth False Cefpodoxime 200 mg tablet [generic] 400 mg By Mouth Twice daily For MRSA INFECTION L BKA 400 mg 08/31 Inactiv e 2023 05753 54944 0 Twice daily By Mouth False Senna 8.6 mg tablet 8.6 mg By Mouth Once daily For Constipation 8.6 mg 09/07 Inactiv e 2023 45798 18438 1 Once daily By Mouth False Humalog [...] abnormalities . Per Carb 2023 Active 2023 29449 48596 9 4 times a day Subcut aneous False Alendronate 35 mg tablet [generic] 08/31 Inactiv e 2023 37324 59931 5 Alendronate 35 mg tablet [generic] 35mg By Mouth Every week For Osteoporosis 35mg 2023 Active 2023 90818 00441 5 Every week By Mouth False ProSource 10 gram-100 kcal/30 mL oral liquid 30 ml By Mouth Once daily For wound healing 30 ml 2023 Active 2023 74637 29067 2 Once daily By Mouth False Clotrimazol e 1 % topical cream [generic] 1 applicaiton Topical Twice daily For tinea, apply to groin rash after cleansing and throughouly drying. Can discontinue order 3 days after rash resolves. 1 applica stacy 09/08 Inactiv e 2023 81836 11833 0 Twice daily Topica l False MAGIC MIX 1:1:1:1 : ZINC OXIDE EXTERNAL OINTMENT 40%; HYDROCOTISO NE EXTERNAL CREAM 1%; NYSTATIN EXTERNAL CREAM 621148D/GM; SILVADENE CREAM 1% Every shift Apply topically to MASD area on coccyx/buttoc ks each shift and as needed for incontinence care For MASD on coccyx layer 2023 Active 2023 Every shift Topica l False Senna 8.6 mg tablet 8.6 mg By Mouth Once daily For Constipation 8.6 mg 09/07 Inactiv e 2023 40885 51990 1 Once daily By Mouth False Senna 8.6 mg tablet 8.6 mg By Mouth Once daily As Needed For Constipation 8.6 mg 2023 Active 2023 20217 00333 1 Once daily By Mouth False BD AutoShield Duo Pen Needle 30 gauge x 3/16in 1 pen needle Subcutaneous 4 times a day For DM 1 pen needle 2023 Active 2023 22644 45525 5 4 times a day Subcut aneous False Hydrocortis one 1 % topical ointment [generic] 1 application Topical Twice daily For tinea *mix 1:1 with clotrimazole cream and apply to clean/dry groin rash 1 applica peggy 09/19 Active 2023 74315 83761 6 Twice daily Topica l False Clotrimazol e 1 % topical cream [generic] 1 applicaiton Topical Twice daily For tinea, apply to groin rash after cleansing and throughouly drying. MIX WITH HYDROCORTISON E Can discontinue order 3 days after rash resolves. 1 applica stacy 2023 Active 2023 11021 78152 0 Twice daily Topica l False Humalog KwikPen (U-100) Insulin 100 unit/mL subcutaneou s 10/10/ 2024 10/10 /2024 Inactiv e 2023 43757 68254 9 MediHoney HCS 4 1/2in X 4 1/2in bandage Cleanse area with NSS, apply one medihoney hydrocolloid dressing, non adherent dressing, kerlix secure with paper tape daily. For wound stage III 1 2023 Active 2023 82691 16743 1 Once daily Topica l False Problems Code Description Start Date End Date Status D64.9 Anemia, unspecified 08/25/2024 Activ e I25.10 Atherosclerotic hear t disease of [place] coronary artery without angina pectoris 08/25/2024 Active [...] weight Temperature SpO2 Blood Sugar Pulse Respirations 60070 8 67.00 mm[Hg] - Sitting 145.00 mm[Hg] - Sitting 98.50 Forehead Scan 96.00 % 81.00/ min 16.00/min 90482 004 57566 2 67.00 mm[Hg] - Sitting 145.00 mm[Hg] - Sitting 98.50 Tympanic 81.00/ min 16.00/min 54681 004 58519 5 56.00 mm[Hg] - Sitting 142.00 mm[Hg] - Sitting 136.40 NI 100.20 Tympanic 96.00 % 92.00/ min 18.00/min 49762 004 84332 6 83870 004 63155 4 143.00 mg/dL 08437 004 76899 0 97.80 Tympanic 72523 005 70740 7 60.00 mm[Hg] - Sitting 140.00 mm[Hg] - Sitting 98.00 Tympanic 84.00/ min 18.00/min 98844 005 37301 0 63.00 mm[Hg] - Sitting 141.00 mm[Hg] - Sitting 98.20 Tympanic 92.00 % 63.00/ min 16.00/min 82066 005 48156 8 69.00 mm[Hg] - Sitting 106.00 mm[Hg] - Sitting 97.20 Tympanic 93064 005 44404 7 69.00/ min 16.00/min 24303 005 96470 3 69.00 mm[Hg] - Sitting 106.00 mm[Hg] - Sitting 98.20 Tympanic 69.00/ min 16.00/min 41487 005 16998 1 367.00 mg/dL 93744 005 46052 2 97.20 Tympanic 26948 005 17197 4 97.20 Tympanic 36547 005 12489 0 69.00 mm[Hg] - Sitting 106.00 mm[Hg] - Sitting 69.00/ min 29066 005 73111 3 452.00 mg/dL 80949 005 15176 3 452.00 mg/dL 95445 005 75870 5 352.00 mg/dL 20626 005 65778 3 352.00 mg/dL 86829 005 28093 7 98.20 Tympanic 65248 005 93255 3 101.00 mg/dL 80658 005 8 101.00 mg/dL 88619 006 92900 4 66.00 mm[Hg] - Sitting 107.00 mm[Hg] - Sitting 98.00 Tympanic 66.00/ min 18.00/min 51514 006 16423 0 62.00 mm[Hg] - Sitting 162.00 mm[Hg] - Sitting 98.20 Tympanic 96.00 % 60.00/ min 16.00/min 30204 006 40514 4 62.00 mm[Hg] - Sitting 162.00 mm[Hg] - Sitting 98.00 Tympanic 70.00/ min 18.00/min 78717 006 46314 8 62.00 mm[Hg] - Sitting 162.00 mm[Hg] - Sitting 98.20 Tympanic 70.00/ min 18.00/min 88686 006 73323 2 66.00 mm[Hg] - Sitting 132.00 mm[Hg] - Sitting 98.60 Tympanic 74.00/ min 16.00/min 69036 006 26168 5 159.00 mg/dL 36356 006 11776 1 159.00 mg/dL 87663 006 32106 8 98.00 Tympanic 08921 006 92444 2 62.00 mm[Hg] - Sitting 162.00 mm[Hg] - Sitting 70.00/ min 38355 006 81123 7 264.00 mg/dL 13385 006 52087 7 264.00 mg/dL 28174 006 51772 4 196.00 mg/dL 15571 006 03413 3 98.20 Tympanic 49979 006 28664 6 271.00 mg/dL 99836 007 89647 3 97.20 Tympanic 98363 007 82786 2 63.00 mm[Hg] - Sitting 132.00 mm[Hg] - Sitting 98.50 Tympanic 94.00 % 66.00/ min 16.00/min 99999 007 00179 5 188.00 mg/dL 74057 007 44907 2 188.00 mg/dL 97837 007 24424 2 188.00 mg/dL 09475 007 05243 7 97.20 Tympanic 87445 007 93038 6 97.20 Tympanic 71599 007 25164 5 67.00 mm[Hg] - Sitting 152.00 mm[Hg] - Sitting 68.00/ min 15843 007 16798 0 141.00 mg/dL 24454 007 02139 3 141.00 mg/dL 50539 007 22118 1 366.00 mg/dL 98943 007 68740 7 366.00 mg/dL 24679 007 25997 7 98.00 Tympanic 12528 007 90200 6 324.00 mg/dL 34901 007 57804 3 98.00 Tympanic 79266 007 03634 7 324.00 mg/dL 61990 008 47857 0 98.00 Tympanic 00324 008 94658 2 97.90 Tympanic 47630 008 44113 0 98.20 Tympanic 31095 008 28599 0 73.00 mm[Hg] - Sitting 156.00 mm[Hg] - Sitting 98.60 Tympanic 99.00 % 66.00/ min 20.00/min 21203 008 34017 5 137.00 mg/dL 25007 008 05860 7 137.00 mg/dL 81599 008 58047 2 97.90 Tympanic 50891 008 75240 1 137.00 mg/dL 37000 008 97378 8 97.90 Tympanic 39761 008 72065 5 67.00 mm[Hg] - Sitting 124.00 /min 60310 008 19006 6 212.00 mg/dL 13380 008 58878 6 212.00 mg/dL 76157 008 30726 9 317.00 mg/dL 96260 008 44622 4 317.00 mg/dL 15188 008 55739 8 252.00 mg/dL 95587 008 69983 0 98.70 Tympanic 04946 008 13643 7 252.00 mg/dL 26233 008 74364 3 98.70 Tympanic 43760 009 55626 9 98.70 Tympanic 90534 009 11901 3 98.20 Tympanic 84572 009 99090 5 98.40 Tympanic 88701 009 34660 5 57.00 mm[Hg] - Sitting 129.00 mm[Hg] - Sitting 98.30 Tympanic 97.00 % 65.00/ min 18.00/min 15244 009 02499 1 255.00 mg/dL 13499 009 55816 4 255.00 mg/dL 20365 009 31345 5 98.20 Tympanic 95093 009 14197 0 255.00 mg/dL 27004 009 79476 0 98.20 Tympanic 11742 009 76364 4 63.00 mm[Hg] - Lying Down 102.00 mm[Hg] - Lying Down 58.00/ min 36074 009 71146 0 167.00 mg/dL 26645 009 67516 1 167.00 mg/dL 29408 009 88674 2 164.00 mg/dL 92622 009 84775 1 164.00 mg/dL 91361 009 91096 5 208.00 mg/dL 02386 010 48371 3 98.40 Tympanic 26632 010 36139 5 98.40 Tympanic 00896 010 60213 7 66 NI 79059 010 55134 4 60.00 mm[Hg] - Sitting 143.00 mm[Hg] - Sitting 98.90 Tympanic 98.00 % 67.00/ min 18.00/min 36831 010 25421 2 214.00 mg/dL 45850 010 70026 0 214.00 mg/dL 72991 010 87633 7 214.00 mg/dL 29842 010 42969 6 64.00 mm[Hg] - Sitting 110.00 mm[Hg] - Sitting 72.00/ min 69398 010 55527 7 98.40 Tympanic 42634 010 89043 1 212.00 mg/dL 05116 010 87223 2 212.00 mg/dL 49312 010 24017 1 115.00 mg/dL 11101 010 44469 0 115.00 mg/dL 86703 010 36373 4 98.50 Tympanic 70963 010 63396 4 150.00 mg/dL 71759 010 17500 0 150.00 mg/dL 26048 011 27729 9 98.60 Tympanic 33077 011 37438 1 67.00 mm[Hg] - Sitting 144.00 mm[Hg] - Sitting 98.20 Tympanic 98.00 % 61.00/ min 18.00/min 61303 011 37460 7 290.00 mg/dL 97153 011 90162 2 290.00 mg/dL 30069 011 66008 2 290.00 mg/dL 38928 011 80053 7 54.00 mm[Hg] - Sitting 136.00 mm[Hg] - Sitting 101.00 /min 12334 011 41424 7 98.60 Tympanic 10202 011 99355 5 240.00 mg/dL 41976 011 34671 1 240.00 mg/dL 90451 011 06065 1 156.00 mg/dL 30121 011 83705 9 156.00 mg/dL 49186 011 53079 0 97.80 Tympanic 83119 011 21298 8 343.00 mg/dL 10177 012 49436 9 97.90 Tympanic 16764 012 06704 2 466.00 mg/dL 84593 012 62622 1 466.00 mg/dL 07870 012 74989 3 466.00 mg/dL 97331 012 33443 8 97.90 Tympanic 83144 012 62576 8 56.00 mm[Hg] - Sitting 96.00 mm[Hg] - Sitting 61.00/ min 05520 012 71821 7 350.00 mg/dL 57729 012 94686 5 350.00 mg/dL 20729 012 41189 6 111.00 mg/dL 82364 012 35653 0 111.00 mg/dL 80598 012 20708 5 98.40 Tympanic 95119 012 07170 6 114.00 mg/dL 04132 013 62549 4 74.00 mm[Hg] - Sitting 112.00 mm[Hg] - Sitting 98.40 Tympanic 70.00/ min 18.00/min 17974 013 26565 8 244.00 mg/dL 66393 013 61695 7 244.00 mg/dL 55177 013 98168 1 244.00 mg/dL 27854 013 61749 1 98.20 Tympanic 71649 013 52716 7 72.00 mm[Hg] - Sitting 119.00 mm[Hg] - Sitting 76.00/ min 67567 013 06517 7 253.00 mg/dL 05446 013 77267 4 253.00 mg/dL 25909 013 26992 9 156.00 mg/dL 33034 013 39995 5 156.00 mg/dL 53084 013 50944 4 97.90 Tympanic 31183 013 38325 5 189.00 mg/dL 94167 014 28018 9 98.10 Tympanic 18523 014 55136 0 61.00 mm[Hg] - Sitting 139.00 mm[Hg] - Sitting 98.20 Forehead Scan 99.00 % 66.00/ min 18.00/min 40356 014 12303 3 169.00 mg/dL 22821 014 76282 3 98.10 Tympanic 92088 014 55546 3 75.00 mm[Hg] - Sitting 121.00 mm[Hg] - Sitting 71.00/ min 21128 014 42127 9 221.00 mg/dL 21566 014 39828 9 62.00 mg/dL 38499 014 74341 5 62.00 mg/dL 13991 014 29970 8 156.00 mg/dL 19897 014 78824 6 98.10 Tympanic 78311 014 89560 7 156.00 mg/dL 78629 015 08005 4 54589 015 60428 7 62.00 mm[Hg] - Sitting 142.00 mm[Hg] - Sitting 98.20 Tympanic 99.00 % 67.00/ min 18.00/min 67936 015 05438 9 120.00 mg/dL 86001 015 76389 7 98.00 Tympanic 63432 015 28114 2 82.00 mm[Hg] - Sitting 119.00 /min 74286 015 12522 9 110.00 mg/dL 03338 015 39478 6 104.00 mg/dL 55719 015 06285 0 100.00 mg/dL 13776 015 50064 2 98.10 Tympanic 07294 015 73946 6 100.00 mg/dL 92778 016 40974 2 67.00 mm[Hg] - Sitting 147.00 mm[Hg] - Sitting 99.00 Tympanic 99.00 % 78.00/ min 20.00/min 78118 016 72050 5 158.00 mg/dL 57773 016 36939 1 158.00 mg/dL 14491 016 53281 2 158.00 mg/dL 31260 016 93542 0 66.00 mm[Hg] - Sitting 121.00 mm[Hg] - Sitting 74.00/ min 56578 016 17303 1 97.00 mg/dL 76654 016 61954 5 97.00 mg/dL 21904 016 59022 4 78.00 mg/dL 50170 016 47023 6 78.00 mg/dL 03176 016 52040 5 248.00 mg/dL 51125 016 76585 8 248.00 mg/dL 60231 017 02938 3 54.00 mm[Hg] - Sitting 142.00 mm[Hg] - Sitting 98.30 Tympanic 99.00 % 76.00/ min 18.00/min 38964 017 65399 4 267.00 mg/dL 28197 017 92963 6 73.00 mm[Hg] - Sitting 109.00 mm[Hg] - Sitting 70.00/ min 74754 017 36455 1 184.00 mg/dL 45502 017 92423 5 184.00 mg/dL 93523 017 50378 9 248.00 mg/dL 86409 017 70012 8 299.00 mg/dL 08353 017 35278 3 299.00 mg/dL 49364 018 35183 3 168.00 mg/dL 01530 018 27865 0 75.00 mm[Hg] - Sitting 121.00 mm[Hg] - Sitting 70.00/ min 76737 018 54196 7 264.00 mg/dL Immunizations Vaccine Date Status COVID-19 09/20/2023 Completed Other 10/08/2023 Completed Shingles 05/27/2011 Completed Tetanus 04/13/2022 Completed TDaP 04/13/2022 Completed Shingles 2 10/05/2018 Completed
--- OUTSIDE RECORDS SUMMARY | 2024-10-03 11:10 | External Medical Summary | Continuity Of Care Document ---
Author Name Unknown Address [address] [address] Organization [facility] () Care Team Providers Care Foam Rubber Curer Name Role Phone DO Machado Amy Primary Care Provider [phone] Allergies Allergy Reaction Start Date End Date [...] 3 0.1 mL 08/29 Inactiv e 2023 51309 45297 0 1 time Intrad ermal False Tubersol 5 tub. unit/0.1 mL intradermal injection solution [Tuberculin PPD] 0.1mL Intradermal 1 time For PPD 2nd Step Give 2nd Step PPD Day 1 and Read results Day 3 (schedule 7 days after 1st READ) 0.1mL 09/08 Active 2023 69360 66791 0 1 time Intrad ermal False Humalog [...] order For Diabetes 08/25 Inactiv e 2023 83056 75263 9 4 times a day Subcut aneous False Aspirin 325 mg tablet [generic] 325 By Mouth Twice daily For Anticoagulati on 325 09/25 Active 2023 52651 07860 1 Twice daily By Mouth False Ferrous sulfate 325 mg (65 mg iron) tablet [generic] 325 By Mouth Once daily For anemia 325 2023 Active 2023 30896 11656 5 Once daily By Mouth False Linezolid 600 mg tablet [generic] 600 mg By Mouth Every 12 hours For MRSA INFECTION L BKA 600 mg 08/25 Inactiv e 2023 05307 14820 1 Every 12 hours By Mouth False Cefpodoxime 200 mg tablet [generic] 400 mg By Mouth Twice daily For MRSA INFECTION L BKA 400 mg 08/25 Inactiv e 2023 19156 31155 0 Twice daily By Mouth False Coenzyme Q10 100 mg tablet [generic] 100 mg By Mouth Once daily For SUPP 100 mg 2023 Active 2023 21916 00011 0 Once daily By Mouth False Levothyroxi ne 50 mcg tablet [generic] 50mcg By Mouth Once daily For hypothyroidis m 50mcg 2023 Active 2023 97319 58775 0 Once daily By Mouth False One A Day Men Complete 240 mcg-25 mcg-300 mcg tablet 1 tab By Mouth Once daily For supplement 1 tab 2023 Active 2023 13629 75088 1 Once daily By Mouth False Cholecalcif adalberto (vitamin D3) 50 mcg (2,000 unit) tablet [generic] 1 TAB By Mouth Once daily For SUPP 1 TAB 2023 Active 2023 67394 87337 1 Once daily By Mouth False Cetirizine 10 mg tablet [generic] 1 TAB By Mouth At bedtime For Allergies 1 TAB 2023 Active 2023 21001 03851 0 At bedtime By Mouth False Timolol maleate 0.25 % eye drops [generic] 1 drop Both Eyes Twice daily For glaucoma 1 drop 2023 0000 /0000 Active 2023 16496 76147 5 Twice daily Both Eyes False Alendronate 35 mg tablet [generic] 35mg By Mouth Every week For SIADH 35mg 08/31 Inactiv e 2023 89033 13806 5 Every week By Mouth False Lantus Solostar U-100 Insulin 100 unit/mL (3 mL) subcutaneou s pen 18 units Subcutaneous Every morning For DIABETES 18 units 08/25 Inactiv e 2023 49506 14738 0 Every morning Subcut aneous False Lantus Solostar U-100 Insulin 100 unit/mL (3 mL) subcutaneou s pen 18 units Subcutaneous Every morning For DIABETES 18 units 2023 Active 2023 99451 44207 0 Every morning Subcut aneous False Linezolid 600 mg tablet [generic] 600 mg By Mouth Every 12 hours For MRSA INFECTION L BKA 600 mg 08/28 Inactiv e 2023 45294 13148 1 Every 12 hours By Mouth False [...] order For Diabetes 08/31 Inactiv e 2023 92503 52959 9 4 times a day Subcut aneous False Cefpodoxime 200 mg tablet [generic] 400 mg By Mouth Twice daily For MRSA INFECTION L BKA 400 mg 08/28 Inactiv e 2023 21363 28278 0 Twice daily By Mouth False Brimonidine 0.1 % eye drops [generic] 1 drop Both Eyes Twice daily For glaucoma 1 drop 2023 Active 2023 80508 81357 0 Twice daily Both Eyes False Metoprolol succinate ER 50 mg tablet,exte nded release 24 hr [generic] 50 mg By Mouth Once daily HOLD FOR SBP <100, or pulse <60 For HTN 50 mg 2023 Active 2023 85458 55377 1 Once daily By Mouth False Amlodipine 2.5 mg tablet [generic] 2.5 mg By Mouth Once daily For HTN 2.5 mg 2023 Active 2023 92029 29551 5 Once daily By Mouth False Docusate sodium 100 mg capsule [generic] 100mg By Mouth Twice daily as needed For constipation HOLD FOR LOOSE STOOLS 100mg 2023 Active 2023 51237 09664 1 Twice daily as needed By Mouth False Atorvastati n 40 mg tablet [generic] 40mg By Mouth Once daily For HDL 40mg 08/26 Inactiv e 2023 06780 32421 5 Once daily By Mouth False Tylenol 325 mg tablet 2 tabs By Mouth Every 4 hours as needed For Pain DO NOT EXCEED 3000 MG APAP/24 Hours 2 tabs 2023 Active 2023 54133 01590 0 Every 4 hours as needed By Mouth False Tylenol 325 mg tablet 2 tabs By Mouth Every 4 hours as needed For Fever >100 DO NOT EXCEED 3000 MG APAP/24 Hours 2 tabs 2023 Active 2023 47685 59409 0 Every 4 hours as needed By Mouth False Dulcolax (bisacodyl) 10 mg rectal suppository One Suppository per rectum PRN if Milk of Magnisia ineffective. Give on day 5 of no BM 1 sup 2023 Active 2023 13111 63618 1 Daily as needed Rectal False Fleet Enema 19 gram-7 gram/118 mL Administer per rectum PRN one time if dulcolax suppository not effective. Give on day 6 of no BM 1 2023 Active 2023 76079 07640 6 Daily as needed Rectal False Dextrose 50 % in water (D50W) intravenous solution [generic] Dextrose 50% evonne 20-50 ml (slow push) Intravenous if Glucagon not effective after 15 minutes. CALL 911 for ED Evaluation. 50% evonne 2023 Active 2023 64494 31432 9 Intrav enous False Glucagon (HCl) Emergency Kit 1 mg solution for injection Administer Glucagon 1 mg Intramuscular if 15 minutes after GLucose Gel is administered Glucose remains less than 70 1 mg 2023 Active 2023 35221 00417 2 Intram uscula r False Glucose Gel 40 % oral gel [Dextrose] PRN If resident is unable to swallow (with or without symptoms) and Glucose results less than 70 give GLucose 40% Gel 1 tube orally - Recheck Glucose 15 minutes after administratio n. 1 tube 2023 Active 2023 46564 41699 8 By Mouth False Milk of Magnesia 400 mg/5 mL oral suspension [Magnesium hydroxide] PRN 30ml By Mouth Daily as needed for constipation one time daily if no BM, on day 4 of no BM (PRN refer to instructions) For Constipation 30 mL 2023 Active 2023 31328 64777 6 Daily as needed By Mouth False Atorvastati n 40 mg tablet [generic] 08/26 Inactiv e 2023 01563 32541 5 Atorvastati n 40 mg tablet [generic] 40mg By Mouth Once daily For HDL 40mg 2023 Active 2023 94648 00440 5 Once daily By Mouth False Insulin aspart (U-100) 100 unit/mL (3 mL) subcutaneou s pen [generic] 15 units Subcutaneous 1 time For dm 15 units 08/26 Inactiv e 2023 77664 72652 5 1 time Subcut aneous False Humalog KwikPen (U-100) Insulin 100 unit/mL subcutaneou s 15 units Subcutaneous 1 time For dm 15 units 08/27 Inactiv e 2023 79462 29846 9 1 time Subcut aneous False Linezolid 600 mg tablet [generic] 600 mg By Mouth Every 12 hours For MRSA INFECTION L BKA 600 mg 09/06 Inactiv e 2023 57833 13187 1 Every 12 hours By Mouth False Cefpodoxime 200 mg tablet [generic] 400 mg By Mouth Twice daily For MRSA INFECTION L BKA 400 mg 08/31 Inactiv e 2023 77214 59026 0 Twice daily By Mouth False Senna 8.6 mg tablet 8.6 mg By Mouth Once daily For Constipation 8.6 mg 09/07 Inactiv e 2023 81915 54087 1 Once daily By Mouth False Humalog [...] abnormalities . Per Carb 2023 Active 2023 25177 33193 9 4 times a day Subcut aneous False Alendronate 35 mg tablet [generic] 08/31 Inactiv e 2023 91479 31518 5 Alendronate 35 mg tablet [generic] 35mg By Mouth Every week For Osteoporosis 35mg 2023 Active 2023 09530 72207 5 Every week By Mouth False ProSource 10 gram-100 kcal/30 mL oral liquid 30 ml By Mouth Once daily For wound healing 30 ml 2023 Active 2023 95910 58288 2 Once daily By Mouth False Clotrimazol e 1 % topical cream [generic] 1 applicaiton Topical Twice daily For tinea, apply to groin rash after cleansing and throughouly drying. Can discontinue order 3 days after rash resolves. 1 applica stacy 09/19 Active 2023 56831 12339 0 Twice daily Topica l False MAGIC MIX 1:1:1:1 : ZINC OXIDE EXTERNAL OINTMENT 40%; HYDROCOTISO NE EXTERNAL CREAM 1%; NYSTATIN EXTERNAL CREAM 595829O/GM; SILVADENE CREAM 1% Every shift Apply topically to MASD area on coccyx/buttoc ks each shift and as needed for incontinence care For MASD on coccyx layer 2023 Active 2023 Every shift Topica l False Senna 8.6 mg tablet 8.6 mg By Mouth Once daily For Constipation 8.6 mg 2023 Active 2023 84719 27187 1 Once daily By Mouth False Humalog KwikPen (U-100) Insulin 100 unit/mL subcutaneou s 08/31 Inactiv e 2023 15348 16389 9 MediHoney HCS 4 1/2in X 4 1/2in bandage Cleanse area with NSS, apply [facility] hydrocolloid dressing, non adherent dressing, kerlix secure with paper tape daily. For wound stage III 1 2023 Active 2023 56642 62758 1 Once daily Topica l False Problems Code Description Start Date End Date Status D64.9 Anemia, unspecified 08/25/2024 Activ e I25.10 Atherosclerotic hear t disease of [place] coronary artery without angina pectoris 08/25/2024 Active [...] weight Temperature SpO2 Blood Sugar Pulse Respirations 04879 8 67.00 mm[Hg] - Sitting 145.00 mm[Hg] - Sitting 98.50 Forehead Scan 96.00 % 81.00/ min 16.00/min 67520 2 67.00 mm[Hg] - Sitting 145.00 mm[Hg] - Sitting 98.50 Tympanic 81.00/ min 16.00/min 49156 5 56.00 mm[Hg] - Sitting 142.00 mm[Hg] - Sitting 136.40 NI 100.20 Tympanic 96.00 % 92.00/ min 18.00/min 37888 004 79530 6 004 39189 4 143.00 mg/dL 24 0 97.80 Tympanic 005 09636 7 60.00 mm[Hg] - Sitting 140.00 mm[Hg] - Sitting 98.00 Tympanic 84.00/ min 18.00/min 89690 005 93663 0 63.00 mm[Hg] - Sitting 141.00 mm[Hg] - Sitting 98.20 Tympanic 92.00 % 63.00/ min 16.00/min 12550 005 17476 8 69.00 mm[Hg] - Sitting 106.00 mm[Hg] - Sitting 97.20 Tympanic 91755 005 33842 7 69.00/ min 16.00/min 60350 005 18532 3 69.00 mm[Hg] - Sitting 106.00 mm[Hg] - Sitting 98.20 Tympanic 69.00/ min 16.00/min 80504 005 02019 1 367.00 mg/dL 69774 005 02038 2 97.20 Tympanic 85571 005 73740 4 97.20 Tympanic 55489 005 85357 0 69.00 mm[Hg] - Sitting 106.00 mm[Hg] - Sitting 69.00/ min 62549 005 87262 3 452.00 mg/dL 23292 005 17029 3 452.00 mg/dL 88221 005 55428 5 352.00 mg/dL 87363 005 37663 3 352.00 mg/dL 45233 005 60473 7 98.20 Tympanic 42573 005 85850 3 101.00 mg/dL 94775 005 65420 8 101.00 mg/dL 53799 006 19510 4 66.00 mm[Hg] - Sitting 107.00 mm[Hg] - Sitting 98.00 Tympanic 66.00/ min 18.00/min 52302 006 12538 0 62.00 mm[Hg] - Sitting 162.00 mm[Hg] - Sitting 98.20 Tympanic 96.00 % 60.00/ min 16.00/min 67438 006 25739 4 62.00 mm[Hg] - Sitting 162.00 mm[Hg] - Sitting 98.00 Tympanic 70.00/ min 18.00/min 48076 006 77875 8 62.00 mm[Hg] - Sitting 162.00 mm[Hg] - Sitting 98.20 Tympanic 70.00/ min 18.00/min 33182 006 82046 2 66.00 mm[Hg] - Sitting 132.00 mm[Hg] - Sitting 98.60 Tympanic 74.00/ min 16.00/min 72975 006 67180 5 159.00 mg/dL 59633 006 84351 1 159.00 mg/dL 42505 006 11715 8 98.00 Tympanic 14839 006 46426 2 62.00 mm[Hg] - Sitting 162.00 mm[Hg] - Sitting 70.00/ min 47564 006 87250 7 264.00 mg/dL 40831 006 34452 7 264.00 mg/dL 95385 006 89432 4 196.00 mg/dL 16062 006 13663 3 98.20 Tympanic 08283 006 21835 6 271.00 mg/dL 00879 007 10032 3 97.20 Tympanic 32625 007 11339 2 63.00 mm[Hg] - Sitting 132.00 mm[Hg] - Sitting 98.50 Tympanic 94.00 % 66.00/ min 16.00/min 73931 007 95755 5 188.00 mg/dL 79143 007 11306 2 188.00 mg/dL 81246 007 02824 2 188.00 mg/dL 56055 007 82237 7 97.20 Tympanic 65860 007 91226 6 97.20 Tympanic 65877 007 55693 5 67.00 mm[Hg] - Sitting 152.00 mm[Hg] - Sitting 68.00/ min 66133 007 82793 0 141.00 mg/dL 97596 007 25070 3 141.00 mg/dL 63731 007 52893 1 366.00 mg/dL 90891 007 88384 7 366.00 mg/dL 54295 007 73458 7 98.00 Tympanic 46308 007 56874 6 324.00 mg/dL 03163 007 03857 3 98.00 Tympanic 18966 007 06992 7 324.00 mg/dL 39913 008 17026 0 98.00 Tympanic 17476 008 26931 2 97.90 Tympanic 05119 008 09517 0 98.20 Tympanic 25453 008 57535 0 73.00 mm[Hg] - Sitting 156.00 mm[Hg] - Sitting 98.60 Tympanic 99.00 % 66.00/ min 20.00/min 39481 008 32751 5 137.00 mg/dL 68033 008 74639 7 137.00 mg/dL 92740 008 01138 2 97.90 Tympanic 35879 008 12327 1 137.00 mg/dL 95121 008 76780 8 97.90 Tympanic 07016 008 90375 5 67.00 mm[Hg] - Sitting 124.00 /min 75767 008 59059 6 212.00 mg/dL 57582 008 97703 6 212.00 mg/dL 09796 008 75260 9 317.00 mg/dL 48308 008 05439 4 317.00 mg/dL 79109 008 92685 8 252.00 mg/dL 85578 008 02513 0 98.70 Tympanic 83509 008 21991 7 252.00 mg/dL 90896 008 12492 3 98.70 Tympanic 37749 009 29575 9 98.70 Tympanic 43983 009 65900 3 98.20 Tympanic 36194 009 03884 5 98.40 Tympanic 63805 009 83353 5 57.00 mm[Hg] - Sitting 129.00 mm[Hg] - Sitting 98.30 Tympanic 97.00 % 65.00/ min 18.00/min 31914 009 32878 1 255.00 mg/dL 01282 009 94057 4 255.00 mg/dL 77139 009 43052 5 98.20 Tympanic 62891 009 38080 0 255.00 mg/dL 44245 009 89822 0 98.20 Tympanic 41613 009 25656 4 63.00 mm[Hg] - Lying Down 102.00 mm[Hg] - Lying Down 58.00/ min 21578 009 69536 0 167.00 mg/dL 14139 009 69359 1 167.00 mg/dL 28779 009 62425 2 164.00 mg/dL 01667 009 70909 1 164.00 mg/dL 93193 009 62883 5 208.00 mg/dL 26147 010 14422 3 98.40 Tympanic 71415 010 68758 5 98.40 Tympanic 46911 010 21776 7 66 [place] [address]99 010 60219 4 60.00 mm[Hg] - Sitting 143.00 mm[Hg] - Sitting 98.90 Tympanic 98.00 % 67.00/ min 18.00/min 07523 010 12950 2 214.00 mg/dL 42527 010 66652 0 214.00 mg/dL 38921 010 88075 7 214.00 mg/dL 43437 010 04861 6 64.00 mm[Hg] - Sitting 110.00 mm[Hg] - Sitting 72.00/ min 09411 010 69505 7 98.40 Tympanic 67758 010 42189 1 212.00 mg/dL 90365 010 63338 2 212.00 mg/dL 70554 010 49573 1 115.00 mg/dL 27147 010 49061 0 115.00 mg/dL 66275 010 46849 4 98.50 Tympanic 02045 010 15726 4 150.00 mg/dL 71203 010 28953 0 150.00 mg/dL 97188 011 20643 9 98.60 Tympanic 79128 011 12294 1 67.00 mm[Hg] - Sitting 144.00 mm[Hg] - Sitting 98.20 Tympanic 98.00 % 61.00/ min 18.00/min 07815 011 93333 7 290.00 mg/dL 33708 011 42806 2 290.00 mg/dL 16663 011 36271 2 290.00 mg/dL 12477 011 82074 7 54.00 mm[Hg] - Sitting 136.00 mm[Hg] - Sitting 101.00 /min 74285 011 03754 7 98.60 Tympanic 65677 011 73682 5 240.00 mg/dL 16149 011 15080 1 240.00 mg/dL 13141 011 33939 1 156.00 mg/dL 78328 011 47008 9 156.00 mg/dL 30764 011 81115 0 97.80 Tympanic 53235 011 18772 8 343.00 mg/dL 46399 012 45778 9 97.90 Tympanic 27204 012 09051 2 466.00 mg/dL 30733 012 08255 1 466.00 mg/dL 28890 012 50375 3 466.00 mg/dL 51233 012 72756 8 97.90 Tympanic 90328 012 16448 8 56.00 mm[Hg] - Sitting 96.00 mm[Hg] - Sitting 61.00/ min 54790 012 26559 7 350.00 mg/dL 28248 012 58067 5 350.00 mg/dL 35997 012 59962 6 111.00 mg/dL 32540 012 24822 0 111.00 mg/dL 69553 012 25791 5 98.40 Tympanic 67029 012 12937 6 114.00 mg/dL 30419 013 66018 4 74.00 mm[Hg] - Sitting 112.00 mm[Hg] - Sitting 98.40 Tympanic 70.00/ min 18.00/min 33833 013 23518 8 244.00 mg/dL 99891 013 67444 7 244.00 mg/dL 61186 013 51551 1 244.00 mg/dL 68774 013 48042 1 98.20 Tympanic 08935 013 41455 7 72.00 mm[Hg] - Sitting 119.00 mm[Hg] - Sitting 76.00/ min 96352 013 67306 7 253.00 mg/dL 39848 013 37648 4 253.00 mg/dL 75776 013 75693 9 156.00 mg/dL 21888 013 11408 5 156.00 mg/dL 85509 013 12838 4 97.90 Tympanic 58513 013 44913 5 189.00 mg/dL 51770 014 58929 9 98.10 Tympanic 59306 014 15209 0 61.00 mm[Hg] - Sitting 139.00 mm[Hg] - Sitting 98.20 Forehead Scan 99.00 % 66.00/ min 18.00/min 50070 014 41497 3 169.00 mg/dL 80716 014 02901 3 98.10 Tympanic 42787 014 83659 3 75.00 mm[Hg] - Sitting 121.00 mm[Hg] - Sitting 71.00/ min 01556 014 25851 9 221.00 mg/dL 29994 014 30115 9 62.00 mg/dL 79950 014 40508 5 62.00 mg/dL 73212 014 69418 8 156.00 mg/dL 38856 014 66638 6 98.10 Tympanic 45027 014 81488 7 156.00 mg/dL 76121 015 38822 4 76324 015 65067 7 62.00 mm[Hg] - Sitting 142.00 mm[Hg] - Sitting 98.20 Tympanic 99.00 % 67.00/ min 18.00/min 26743 015 14933 9 120.00 mg/dL 47929 015 63174 7 98.00 Tympanic 70641 015 42699 2 82.00 mm[Hg] - Sitting 119.00 /min 10827 015 91247 9 110.00 mg/dL 76585 015 07963 6 104.00 mg/dL 14137 015 83162 0 100.00 mg/dL 68750 015 93385 2 98.10 Tympanic 18372 015 37599 6 100.00 mg/dL 33720 016 50365 2 67.00 mm[Hg] - Sitting 147.00 mm[Hg] - Sitting 99.00 Tympanic 99.00 % 78.00/ min 20.00/min 22104 016 85860 5 158.00 mg/dL 85428 016 05281 1 158.00 mg/dL 34891 016 77131 2 158.00 mg/dL 93564 016 12211 0 66.00 mm[Hg] - Sitting 121.00 mm[Hg] - Sitting 74.00/ min 21883 016 48935 1 97.00 mg/dL 84368 016 22822 5 97.00 mg/dL 29798 016 91219 4 78.00 mg/dL 33331 016 71084 6 78.00 mg/dL 80662 016 75304 5 248.00 mg/dL 18233 016 64331 8 248.00 mg/dL 89953 017 40257 4 267.00 mg/dL 14208 017 51720 6 73.00 mm[Hg] - Sitting 109.00 mm[Hg] - Sitting 70.00/ min 17309 017 28865 1 184.00 mg/dL 31103 017 75390 5 184.00 mg/dL Immunizations Vaccine Date Status COVID-19 09/20/2023 Completed Other 10/08/2023 Completed Shingles 05/27/2011 Completed Tetanus 04/13/2022 Completed TDaP 04/13/2022 Completed Shingles 2 10/05/2018 Completed
--- OUTSIDE RECORDS SUMMARY | 2024-10-03 11:10 | External Medical Summary | Continuity Of Care Document ---
Author Name Unknown Address [address] [address] Organization [facility] () Care Team Providers Care Mathematics Department Chair Name Role Phone DO Machado Amy Primary Care Provider [phone] Allergies Allergy Reaction Start Date End Date [...] 3 0.1 mL 08/29 Inactiv e 2023 21997 98004 0 1 time Intrad ermal False Tubersol 5 tub. unit/0.1 mL intradermal injection solution [Tuberculin PPD] 0.1mL Intradermal 1 time For PPD 2nd Step Give 2nd Step PPD Day 1 and Read results Day 3 (schedule 7 days after 1st READ) 0.1mL 09/08 Active 2023 25385 76609 0 1 time Intrad ermal False Humalog [...] order For Diabetes 08/25 Inactiv e 2023 24854 15856 9 4 times a day Subcut aneous False Aspirin 325 mg tablet [generic] 325 By Mouth Twice daily For Anticoagulati on 325 09/25 Active 2023 91595 20349 1 Twice daily By Mouth False Ferrous sulfate 325 mg (65 mg iron) tablet [generic] 325 By Mouth Once daily For anemia 325 2023 Active 2023 99878 54366 5 Once daily By Mouth False Linezolid 600 mg tablet [generic] 600 mg By Mouth Every 12 hours For MRSA INFECTION L BKA 600 mg 08/25 Inactiv e 2023 14219 20061 1 Every 12 hours By Mouth False Cefpodoxime 200 mg tablet [generic] 400 mg By Mouth Twice daily For MRSA INFECTION L BKA 400 mg 08/25 Inactiv e 2023 26619 41377 0 Twice daily By Mouth False Coenzyme Q10 100 mg tablet [generic] 100 mg By Mouth Once daily For SUPP 100 mg 2023 Active 2023 47188 58176 0 Once daily By Mouth False Levothyroxi ne 50 mcg tablet [generic] 50mcg By Mouth Once daily For hypothyroidis m 50mcg 2023 Active 2023 41167 79911 0 Once daily By Mouth False One A Day Men Complete 240 mcg-25 mcg-300 mcg tablet 1 tab By Mouth Once daily For supplement 1 tab 2023 Active 2023 28993 11152 1 Once daily By Mouth False Cholecalcif adalberto (vitamin D3) 50 mcg (2,000 unit) tablet [generic] 1 TAB By Mouth Once daily For SUPP 1 TAB 2023 Active 2023 21387 21253 1 Once daily By Mouth False Cetirizine 10 mg tablet [generic] 1 TAB By Mouth At bedtime For Allergies 1 TAB 2023 Active 2023 35048 88495 0 At bedtime By Mouth False Timolol maleate 0.25 % eye drops [generic] 1 drop Both Eyes Twice daily For glaucoma 1 drop 2023 0000 /0000 Active 2023 24030 82607 5 Twice daily Both Eyes False Alendronate 35 mg tablet [generic] 35mg By Mouth Every week For SIADH 35mg 08/31 Inactiv e 2023 80258 50788 5 Every week By Mouth False Lantus Solostar U-100 Insulin 100 unit/mL (3 mL) subcutaneou s pen 18 units Subcutaneous Every morning For DIABETES 18 units 08/25 Inactiv e 2023 73801 41458 0 Every morning Subcut aneous False Lantus Solostar U-100 Insulin 100 unit/mL (3 mL) subcutaneou s pen 18 units Subcutaneous Every morning For DIABETES 18 units 2023 Active 2023 11357 63189 0 Every morning Subcut aneous False Linezolid 600 mg tablet [generic] 600 mg By Mouth Every 12 hours For MRSA INFECTION L BKA 600 mg 08/28 Inactiv e 2023 59294 72957 1 Every 12 hours By Mouth False [...] order For Diabetes 08/31 Inactiv e 2023 23123 42348 9 4 times a day Subcut aneous False Cefpodoxime 200 mg tablet [generic] 400 mg By Mouth Twice daily For MRSA INFECTION L BKA 400 mg 08/28 Inactiv e 2023 71448 80309 0 Twice daily By Mouth False Brimonidine 0.1 % eye drops [generic] 1 drop Both Eyes Twice daily For glaucoma 1 drop 2023 Active 2023 74434 61378 0 Twice daily Both Eyes False Metoprolol succinate ER 50 mg tablet,exte nded release 24 hr [generic] 50 mg By Mouth Once daily HOLD FOR SBP <100, or pulse <60 For HTN 50 mg 2023 Active 2023 82033 46663 1 Once daily By Mouth False Amlodipine 2.5 mg tablet [generic] 2.5 mg By Mouth Once daily For HTN 2.5 mg 2023 Active 2023 88372 99695 5 Once daily By Mouth False Docusate sodium 100 mg capsule [generic] 100mg By Mouth Twice daily as needed For constipation HOLD FOR LOOSE STOOLS 100mg 2023 Active 2023 87124 10514 1 Twice daily as needed By Mouth False Atorvastati n 40 mg tablet [generic] 40mg By Mouth Once daily For HDL 40mg 08/26 Inactiv e 2023 56234 96287 5 Once daily By Mouth False Tylenol 325 mg tablet 2 tabs By Mouth Every 4 hours as needed For Pain DO NOT EXCEED 3000 MG APAP/24 Hours 2 tabs 2023 Active 2023 57284 16820 0 Every 4 hours as needed By Mouth False Tylenol 325 mg tablet 2 tabs By Mouth Every 4 hours as needed For Fever >100 DO NOT EXCEED 3000 MG APAP/24 Hours 2 tabs 2023 Active 2023 04123 40297 0 Every 4 hours as needed By Mouth False Dulcolax (bisacodyl) 10 mg rectal suppository One Suppository per rectum PRN if Milk of Magnisia ineffective. Give on day 5 of no BM 1 sup 2023 Active 2023 57672 07091 1 Daily as needed Rectal False Fleet Enema 19 gram-7 gram/118 mL Administer per rectum PRN one time if dulcolax suppository not effective. Give on day 6 of no BM 1 2023 Active 2023 53198 65916 6 Daily as needed Rectal False Dextrose 50 % in water (D50W) intravenous solution [generic] Dextrose 50% evonne 20-50 ml (slow push) Intravenous if Glucagon not effective after 15 minutes. CALL 911 for ED Evaluation. 50% evonne 2023 Active 2023 53846 86441 9 Intrav enous False Glucagon (HCl) Emergency Kit 1 mg solution for injection Administer Glucagon 1 mg Intramuscular if 15 minutes after GLucose Gel is administered Glucose remains less than 70 1 mg 2023 Active 2023 52331 04568 2 Intram uscula r False Glucose Gel 40 % oral gel [Dextrose] PRN If resident is unable to swallow (with or without symptoms) and Glucose results less than 70 give GLucose 40% Gel 1 tube orally - Recheck Glucose 15 minutes after administratio n. 1 tube 2023 Active 2023 77022 75542 8 By Mouth False Milk of Magnesia 400 mg/5 mL oral suspension [Magnesium hydroxide] PRN 30ml By Mouth Daily as needed for constipation one time daily if no BM, on day 4 of no BM (PRN refer to instructions) For Constipation 30 mL 2023 Active 2023 46032 04987 6 Daily as needed By Mouth False Atorvastati n 40 mg tablet [generic] 08/26 Inactiv e 2023 59391 97558 5 Atorvastati n 40 mg tablet [generic] 40mg By Mouth Once daily For HDL 40mg 2023 Active 2023 85928 27307 5 Once daily By Mouth False Insulin aspart (U-100) 100 unit/mL (3 mL) subcutaneou s pen [generic] 15 units Subcutaneous 1 time For dm 15 units 08/26 Inactiv e 2023 16008 34947 5 1 time Subcut aneous False Humalog KwikPen (U-100) Insulin 100 unit/mL subcutaneou s 15 units Subcutaneous 1 time For dm 15 units 08/27 Inactiv e 2023 09834 12049 9 1 time Subcut aneous False Linezolid 600 mg tablet [generic] 600 mg By Mouth Every 12 hours For MRSA INFECTION L BKA 600 mg 09/06 Inactiv e 2023 15672 22732 1 Every 12 hours By Mouth False Cefpodoxime 200 mg tablet [generic] 400 mg By Mouth Twice daily For MRSA INFECTION L BKA 400 mg 08/31 Inactiv e 2023 61032 63510 0 Twice daily By Mouth False Senna 8.6 mg tablet 8.6 mg By Mouth Once daily For Constipation 8.6 mg 2023 Active 2023 97297 24749 1 Once daily By Mouth False Humalog [...] abnormalities . Per Carb 2023 Active 2023 55724 23550 9 4 times a day Subcut aneous False Alendronate 35 mg tablet [generic] 08/31 Inactiv e 2023 63858 90674 5 Alendronate 35 mg tablet [generic] 35mg By Mouth Every week For Osteoporosis 35mg 2023 Active 2023 13509 22575 5 Every week By Mouth False ProSource 10 gram-100 kcal/30 mL oral liquid 30 ml By Mouth Once daily For wound healing 30 ml 2023 Active 2023 81830 60652 2 Once daily By Mouth False Clotrimazol e 1 % topical cream [generic] 1 applicaiton Topical Twice daily For tinea, apply to groin rash after cleansing and throughouly drying. Can discontinue order 3 days after rash resolves. 1 applica stacy 09/19 Active 2023 64202 83623 0 Twice daily Topica l False Humalog KwikPen (U-100) Insulin 100 unit/mL subcutaneou s 08/31 Inactiv e 2023 95545 00823 9 MediHoney HCS 4 1/2in X 4 1/2in bandage Cleanse area with NSS, apply one medihoney hydrocolloid dressing, non adherent dressing, kerlix secure with paper tape daily. 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 08/25/2024 Active [...] weight Temperature SpO2 Blood Sugar Pulse Respirations 91064 8 67.00 mm[Hg] - Sitting 145.00 mm[Hg] - Sitting 98.50 Forehead Scan 96.00 % 81.00/ min 16.00/min 004 56659 2 67.00 mm[Hg] - Sitting 145.00 mm[Hg] - Sitting 98.50 Tympanic 81.00/ min 16.00/min 004 18126 5 56.00 mm[Hg] - Sitting 142.00 mm[Hg] - Sitting 136.40 NI 100.20 Tympanic 96.00 % 92.00/ min 18.00/min 02469 004 93570 6 93290 004 82514 4 143.00 mg/dL 01113 0 97.80 Tympanic 005 36280 7 60.00 mm[Hg] - Sitting 140.00 mm[Hg] - Sitting 98.00 Tympanic 84.00/ min 18.00/min 79998 005 87793 0 63.00 mm[Hg] - Sitting 141.00 mm[Hg] - Sitting 98.20 Tympanic 92.00 % 63.00/ min 16.00/min 73999 005 33075 8 69.00 mm[Hg] - Sitting 106.00 mm[Hg] - Sitting 97.20 Tympanic 005 23024 7 69.00/ min 16.00/min 58976 005 08731 3 69.00 mm[Hg] - Sitting 106.00 mm[Hg] - Sitting 98.20 Tympanic 69.00/ min 16.00/min 08317 005 56481 1 367.00 mg/dL 27429 005 62436 2 97.20 Tympanic 63466 005 77531 4 97.20 Tympanic 77011 005 69915 0 69.00 mm[Hg] - Sitting 106.00 mm[Hg] - Sitting 69.00/ min 92233 005 49104 3 452.00 mg/dL 05223 005 66698 3 452.00 mg/dL 91930 005 11027 5 352.00 mg/dL 88458 005 15241 3 352.00 mg/dL 28230 005 38895 7 98.20 Tympanic 09877 005 3 101.00 mg/dL 38651 005 8 101.00 mg/dL 00457 006 39385 4 66.00 mm[Hg] - Sitting 107.00 mm[Hg] - Sitting 98.00 Tympanic 66.00/ min 18.00/min 93003 006 11549 0 62.00 mm[Hg] - Sitting 162.00 mm[Hg] - Sitting 98.20 Tympanic 96.00 % 60.00/ min 16.00/min 35736 006 95622 4 62.00 mm[Hg] - Sitting 162.00 mm[Hg] - Sitting 98.00 Tympanic 70.00/ min 18.00/min 63447 006 32751 8 62.00 mm[Hg] - Sitting 162.00 mm[Hg] - Sitting 98.20 Tympanic 70.00/ min 18.00/min 00602 006 42507 2 66.00 mm[Hg] - Sitting 132.00 mm[Hg] - Sitting 98.60 Tympanic 74.00/ min 16.00/min 42674 006 54998 5 159.00 mg/dL 83948 006 80571 1 159.00 mg/dL 02436 006 41357 8 98.00 Tympanic 00051 006 95789 2 62.00 mm[Hg] - Sitting 162.00 mm[Hg] - Sitting 70.00/ min 03646 006 86487 7 264.00 mg/dL 96949 006 75947 7 264.00 mg/dL 70873 006 78796 4 196.00 mg/dL 91694 006 15387 3 98.20 Tympanic 16719 006 88635 6 271.00 mg/dL 41147 007 07813 3 97.20 Tympanic 66017 007 38242 2 63.00 mm[Hg] - Sitting 132.00 mm[Hg] - Sitting 98.50 Tympanic 94.00 % 66.00/ min 16.00/min 03455 007 38688 5 188.00 mg/dL 90112 007 02917 2 188.00 mg/dL 49079 007 23545 2 188.00 mg/dL 17248 007 71069 7 97.20 Tympanic 46672 007 68832 6 97.20 Tympanic 48527 007 98761 5 67.00 mm[Hg] - Sitting 152.00 mm[Hg] - Sitting 68.00/ min 19217 007 70467 0 141.00 mg/dL 47417 007 77892 3 141.00 mg/dL 95740 007 77698 1 366.00 mg/dL 34138 007 94769 7 366.00 mg/dL 70615 007 21507 7 98.00 Tympanic 48940 007 48133 6 324.00 mg/dL 11379 007 28101 3 98.00 Tympanic 81526 007 67229 7 324.00 mg/dL 60198 008 14397 0 98.00 Tympanic 47741 008 77267 2 97.90 Tympanic 68452 008 16015 0 98.20 Tympanic 48972 008 75768 0 73.00 mm[Hg] - Sitting 156.00 mm[Hg] - Sitting 98.60 Tympanic 99.00 % 66.00/ min 20.00/min 66604 008 52983 5 137.00 mg/dL 31083 008 16910 7 137.00 mg/dL 13821 008 43470 2 97.90 Tympanic 18717 008 80350 1 137.00 mg/dL 86568 008 13364 8 97.90 Tympanic 52186 008 20794 5 67.00 mm[Hg] - Sitting 124.00 /min 01884 008 09542 6 212.00 mg/dL 18803 008 77205 6 212.00 mg/dL 92859 008 00651 9 317.00 mg/dL 93681 008 81293 4 317.00 mg/dL 83282 008 53301 8 252.00 mg/dL 27010 008 99410 0 98.70 Tympanic 60993 008 50112 7 252.00 mg/dL 32622 008 77771 3 98.70 Tympanic 50758 009 00513 9 98.70 Tympanic 67621 009 70035 3 98.20 Tympanic 24948 009 68131 5 98.40 Tympanic 45479 009 59432 5 57.00 mm[Hg] - Sitting 129.00 mm[Hg] - Sitting 98.30 Tympanic 97.00 % 65.00/ min 18.00/min 02523 009 93423 1 255.00 mg/dL 77103 009 91472 4 255.00 mg/dL 84550 009 90896 5 98.20 Tympanic 98982 009 50869 0 255.00 mg/dL 99866 009 29057 0 98.20 Tympanic 53042 009 93170 4 63.00 mm[Hg] - Lying Down 102.00 mm[Hg] - Lying Down 58.00/ min 20295 009 23038 0 167.00 mg/dL 97505 009 50068 1 167.00 mg/dL 88652 009 03131 2 164.00 mg/dL 72886 009 09594 1 164.00 mg/dL 05584 009 24738 5 208.00 mg/dL 71165 010 53334 3 98.40 Tympanic 22508 010 71602 5 98.40 Tympanic 10462 010 33075 7 66 [place] [address] 010 64049 4 60.00 mm[Hg] - Sitting 143.00 mm[Hg] - Sitting 98.90 Tympanic 98.00 % 67.00/ min 18.00/min 83746 010 48622 2 214.00 mg/dL 67169 010 71739 0 214.00 mg/dL 60065 010 75035 7 214.00 mg/dL 11584 010 61110 6 64.00 mm[Hg] - Sitting 110.00 mm[Hg] - Sitting 72.00/ min 15272 010 60546 7 98.40 Tympanic 94376 010 61135 1 212.00 mg/dL 50181 010 85609 2 212.00 mg/dL 06763 010 07854 1 115.00 mg/dL 12629 010 03786 0 115.00 mg/dL 41792 010 85708 4 98.50 Tympanic 93917 010 72723 4 150.00 mg/dL 14850 010 51085 0 150.00 mg/dL 66001 011 96612 9 98.60 Tympanic 70345 011 41859 1 67.00 mm[Hg] - Sitting 144.00 mm[Hg] - Sitting 98.20 Tympanic 98.00 % 61.00/ min 18.00/min 61126 011 53618 7 290.00 mg/dL 41754 011 92547 2 290.00 mg/dL 27454 011 60338 2 290.00 mg/dL 25634 011 14313 7 54.00 mm[Hg] - Sitting 136.00 mm[Hg] - Sitting 101.00 /min 74863 011 49043 7 98.60 Tympanic 62142 011 34477 5 240.00 mg/dL 97700 011 94927 1 240.00 mg/dL 52292 011 91327 1 156.00 mg/dL 26933 011 73290 9 156.00 mg/dL 47929 011 66586 0 97.80 Tympanic 61784 011 06761 8 343.00 mg/dL 47304 012 60098 9 97.90 Tympanic 78361 012 83786 2 466.00 mg/dL 58167 012 03128 1 466.00 mg/dL 90063 012 91888 3 466.00 mg/dL 37556 012 67876 8 97.90 Tympanic 49186 012 70284 8 56.00 mm[Hg] - Sitting 96.00 mm[Hg] - Sitting 61.00/ min 77677 012 21792 7 350.00 mg/dL 09132 012 56506 5 350.00 mg/dL 05447 012 44487 6 111.00 mg/dL 83491 012 64585 0 111.00 mg/dL 25676 012 59827 5 98.40 Tympanic 08281 012 39489 6 114.00 mg/dL 42110 013 71930 4 74.00 mm[Hg] - Sitting 112.00 mm[Hg] - Sitting 98.40 Tympanic 70.00/ min 18.00/min 60347 013 51875 8 244.00 mg/dL 94143 013 58776 7 244.00 mg/dL 25859 013 63748 1 244.00 mg/dL 86113 013 70413 1 98.20 Tympanic 73081 013 27589 7 72.00 mm[Hg] - Sitting 119.00 mm[Hg] - Sitting 76.00/ min 60494 013 46996 7 253.00 mg/dL 19868 013 44927 4 253.00 mg/dL 63711 013 39268 9 156.00 mg/dL 13725 013 99452 5 156.00 mg/dL 50844 013 60417 4 97.90 Tympanic 12514 013 96609 5 189.00 mg/dL 35179 014 57294 9 98.10 Tympanic 53401 014 75778 0 61.00 mm[Hg] - Sitting 139.00 mm[Hg] - Sitting 98.20 Forehead Scan 99.00 % 66.00/ min 18.00/min 20681 014 33004 3 169.00 mg/dL 05893 014 92613 3 98.10 Tympanic 36549 014 23291 3 75.00 mm[Hg] - Sitting 121.00 mm[Hg] - Sitting 71.00/ min 82547 014 48128 9 221.00 mg/dL 79257 014 53851 9 62.00 mg/dL 24618 014 83965 5 62.00 mg/dL 30744 014 15222 8 156.00 mg/dL 65758 014 21045 6 98.10 Tympanic 67549 014 67094 7 156.00 mg/dL 11137 015 85115 4 90929 015 91532 7 62.00 mm[Hg] - Sitting 142.00 mm[Hg] - Sitting 98.20 Tympanic 99.00 % 67.00/ min 18.00/min 86270 015 54156 9 120.00 mg/dL 76294 015 31197 7 98.00 Tympanic 74385 015 82252 2 82.00 mm[Hg] - Sitting 119.00 /min 75281 015 05897 9 110.00 mg/dL 36677 015 02213 6 104.00 mg/dL 75184 015 81103 0 100.00 mg/dL 65570 015 56442 2 98.10 Tympanic 56746 015 70011 6 100.00 mg/dL 83411 016 26126 2 67.00 mm[Hg] - Sitting 147.00 mm[Hg] - Sitting 99.00 Tympanic 99.00 % 78.00/ min 20.00/min 65003 016 43234 5 158.00 mg/dL 46802 016 79390 1 158.00 mg/dL 49470 016 23205 2 158.00 mg/dL 75976 016 16895 0 66.00 mm[Hg] - Sitting 121.00 mm[Hg] - Sitting 74.00/ min 22028 016 87507 1 97.00 mg/dL 91290 016 16914 5 97.00 mg/dL 78687 016 30105 4 78.00 mg/dL 23767 016 03231 6 78.00 mg/dL 01055 016 83418 5 248.00 mg/dL 86350 016 43110 8 248.00 mg/dL Immunizations Vaccine Date Status COVID-19 09/20/2023 Completed Other 10/08/2023 Completed Shingles 05/27/2011 Completed Tetanus 04/13/2022 Completed TDaP 04/13/2022 Completed Shingles 2 10/05/2018 Completed
--- OUTSIDE RECORDS SUMMARY | 2024-10-03 11:10 | External Medical Summary | Continuity Of Care Document ---
Author Name Unknown Address [address] [address] Organization [facility] () Care Team Providers Care Imaging Technician Name Role Phone DO Machado Amy Primary Care Provider [phone] Allergies Allergy Reaction Start Date End Date [...] 3 0.1 mL 08/29 Inactiv e 2023 81039 38734 0 1 time Intrad ermal False Tubersol 5 tub. unit/0.1 mL intradermal injection solution [Tuberculin PPD] 0.1mL Intradermal 1 time For PPD 2nd Step Give 2nd Step PPD Day 1 and Read results Day 3 (schedule 7 days after 1st READ) 0.1mL 09/08 Inactiv e 2023 10310 72378 0 1 time Intrad ermal False Humalog [...] order For Diabetes 08/25 Inactiv e 2023 48030 71552 9 4 times a day Subcut aneous False Aspirin 325 mg tablet [generic] 325 By Mouth Twice daily For Anticoagulati on 325 09/25 Active 2023 77817 10127 1 Twice daily By Mouth False Ferrous sulfate 325 mg (65 mg iron) tablet [generic] 325 By Mouth Once daily For anemia 325 2023 Active 2023 51298 29381 5 Once daily By Mouth False Linezolid 600 mg tablet [generic] 600 mg By Mouth Every 12 hours For MRSA INFECTION L BKA 600 mg 08/25 Inactiv e 2023 42247 00609 1 Every 12 hours By Mouth False Cefpodoxime 200 mg tablet [generic] 400 mg By Mouth Twice daily For MRSA INFECTION L BKA 400 mg 08/25 Inactiv e 2023 51723 92015 0 Twice daily By Mouth False Coenzyme Q10 100 mg tablet [generic] 100 mg By Mouth Once daily For SUPP 100 mg 2023 Active 2023 20362 18139 0 Once daily By Mouth False Levothyroxi ne 50 mcg tablet [generic] 50mcg By Mouth Once daily For hypothyroidis m 50mcg 2023 Active 2023 60057 27327 0 Once daily By Mouth False One A Day Men Complete 240 mcg-25 mcg-300 mcg tablet 1 tab By Mouth Once daily For supplement 1 tab 2023 Active 2023 64108 99752 1 Once daily By Mouth False Cholecalcif adalberto (vitamin D3) 50 mcg (2,000 unit) tablet [generic] 1 TAB By Mouth Once daily For SUPP 1 TAB 2023 Active 2023 68223 55677 1 Once daily By Mouth False Cetirizine 10 mg tablet [generic] 1 TAB By Mouth At bedtime For Allergies 1 TAB 2023 Active 2023 66422 27925 0 At bedtime By Mouth False Timolol maleate 0.25 % eye drops [generic] 1 drop Both Eyes Twice daily For glaucoma 1 drop 2023 0000 0000 Active 2023 83919 33694 5 Twice daily Both Eyes False Alendronate 35 mg tablet [generic] 35mg By Mouth Every week For SIADH 35mg 08/31 Inactiv e 2023 55128 27940 5 Every week By Mouth False Lantus Solostar U-100 Insulin 100 unit/mL (3 mL) subcutaneou s pen 18 units Subcutaneous Every morning For DIABETES 18 units 08/25 Inactiv e 2023 12689 28057 0 Every morning Subcut aneous False Lantus Solostar U-100 Insulin 100 unit/mL (3 mL) subcutaneou s pen 18 units Subcutaneous Every morning For DIABETES 18 units 2023 Active 2023 98672 68460 0 Every morning Subcut aneous False Linezolid 600 mg tablet [generic] 600 mg By Mouth Every 12 hours For MRSA INFECTION L BKA 600 mg 08/28 Inactiv e 2023 42519 87647 1 Every 12 hours By Mouth False [...] order For Diabetes 08/31 Inactiv e 2023 37181 09660 9 4 times a day Subcut aneous False Cefpodoxime 200 mg tablet [generic] 400 mg By Mouth Twice daily For MRSA INFECTION L BKA 400 mg 08/28 Inactiv e 2023 55164 35917 0 Twice daily By Mouth False Brimonidine 0.1 % eye drops [generic] 1 drop Both Eyes Twice daily For glaucoma 1 drop 2023 Active 2023 48731 02173 0 Twice daily Both Eyes False Metoprolol succinate ER 50 mg tablet,exte nded release 24 hr [generic] 50 mg By Mouth Once daily HOLD FOR SBP <100, or pulse <60 For HTN 50 mg 2023 Active 2023 69139 28335 1 Once daily By Mouth False Amlodipine 2.5 mg tablet [generic] 2.5 mg By Mouth Once daily For HTN 2.5 mg 2023 Active 2023 51362 60824 5 Once daily By Mouth False Docusate sodium 100 mg capsule [generic] 100mg By Mouth Twice daily as needed For constipation HOLD FOR LOOSE STOOLS 100mg 2023 Active 2023 24520 55587 1 Twice daily as needed By Mouth False Atorvastati n 40 mg tablet [generic] 40mg By Mouth Once daily For HDL 40mg 08/26 Inactiv e 2023 92087 47381 5 Once daily By Mouth False Tylenol 325 mg tablet 2 tabs By Mouth Every 4 hours as needed For Pain DO NOT EXCEED 3000 MG APAP/24 Hours 2 tabs 2023 Active 2023 97615 58521 0 Every 4 hours as needed By Mouth False Tylenol 325 mg tablet 2 tabs By Mouth Every 4 hours as needed For Fever >100 DO NOT EXCEED 3000 MG APAP/24 Hours 2 tabs 2023 Active 2023 17078 62814 0 Every 4 hours as needed By Mouth False Dulcolax (bisacodyl) 10 mg rectal suppository One Suppository per rectum PRN if Milk of Magnisia ineffective. Give on day 5 of no BM 1 sup 2023 Active 2023 92701 58929 1 Daily as needed Rectal False Fleet Enema 19 gram-7 gram/118 mL Administer per rectum PRN one time if dulcolax suppository not effective. Give on day 6 of no BM 1 2023 Active 2023 52627 84094 6 Daily as needed Rectal False Dextrose 50 % in water (D50W) intravenous solution [generic] Dextrose 50% evonne 20-50 ml (slow push) Intravenous if Glucagon not effective after 15 minutes. CALL 911 for ED Evaluation. 50% evonne 2023 Active 2023 70358 93335 9 Intrav enous False Glucagon (HCl) Emergency Kit 1 mg solution for injection Administer Glucagon 1 mg Intramuscular if 15 minutes after GLucose Gel is administered Glucose remains less than 70 1 mg 2023 Active 2023 78413 10473 2 Intram uscula r False Glucose Gel 40 % oral gel [Dextrose] PRN If resident is unable to swallow (with or without symptoms) and Glucose results less than 70 give GLucose 40% Gel 1 tube orally - Recheck Glucose 15 minutes after administratio n. 1 tube 2023 Active 2023 32667 06764 8 By Mouth False Milk of Magnesia 400 mg/5 mL oral suspension [Magnesium hydroxide] PRN 30ml By Mouth Daily as needed for constipation one time daily if no BM, on day 4 of no BM (PRN refer to instructions) For Constipation 30 mL 2023 Active 2023 42461 77974 6 Daily as needed By Mouth False Atorvastati n 40 mg tablet [generic] 08/26 Inactiv e 2023 02244 50313 5 Atorvastati n 40 mg tablet [generic] 40mg By Mouth Once daily For HDL 40mg 2023 Active 2023 99392 19656 5 Once daily By Mouth False Insulin aspart (U-100) 100 unit/mL (3 mL) subcutaneou s pen [generic] 15 units Subcutaneous 1 time For dm 15 units 08/26 Inactiv e 2023 91576 23037 5 1 time Subcut aneous False Humalog KwikPen (U-100) Insulin 100 unit/mL subcutaneou s 15 units Subcutaneous 1 time For dm 15 units 08/27 Inactiv e 2023 70982 88603 9 1 time Subcut aneous False Linezolid 600 mg tablet [generic] 600 mg By Mouth Every 12 hours For MRSA INFECTION L BKA 600 mg 09/06 Inactiv e 2023 21826 46564 1 Every 12 hours By Mouth False Cefpodoxime 200 mg tablet [generic] 400 mg By Mouth Twice daily For MRSA INFECTION L BKA 400 mg 08/31 Inactiv e 2023 25069 20073 0 Twice daily By Mouth False Senna 8.6 mg tablet 8.6 mg By Mouth Once daily For Constipation 8.6 mg 09/07 Inactiv e 2023 84658 37215 1 Once daily By Mouth False Humalog [...] abnormalities . Per Carb 2023 Active 2023 75039 53927 9 4 times a day Subcut aneous False Alendronate 35 mg tablet [generic] 08/31 Inactiv e 2023 91285 26333 5 Alendronate 35 mg tablet [generic] 35mg By Mouth Every week For Osteoporosis 35mg 2023 Active 2023 27340 65228 5 Every week By Mouth False ProSource 10 gram-100 kcal/30 mL oral liquid 30 ml By Mouth Once daily For wound healing 30 ml 2023 Active 2023 53175 51415 2 Once daily By Mouth False Clotrimazol e 1 % topical cream [generic] 1 applicaiton Topical Twice daily For tinea, apply to groin rash after cleansing and throughouly drying. Can discontinue order 3 days after rash resolves. 1 applica stacy 09/19 Active 2023 18505 58370 0 Twice daily Topica l False MAGIC MIX 1:1:1:1 : ZINC OXIDE EXTERNAL OINTMENT 40%; HYDROCOTISO NE EXTERNAL CREAM 1%; NYSTATIN EXTERNAL CREAM 125146K/GM; SILVADENE CREAM 1% Every shift Apply topically to MASD area on coccyx/buttoc ks each shift and as needed for incontinence care For MASD on coccyx layer 2023 Active 2023 Every shift Topica l False Senna 8.6 mg tablet 8.6 mg By Mouth Once daily For Constipation 8.6 mg 09/07 Inactiv e 2023 96449 27929 1 Once daily By Mouth False Senna 8.6 mg tablet 8.6 mg By Mouth Once daily As Needed For Constipation 8.6 mg 2023 Active 2023 28497 62912 1 Once daily By Mouth False BD AutoShield Duo Pen Needle 30 gauge x 3/16in 1 pen needle Subcutaneous 4 times a day For DM 1 pen needle 2023 Active 2023 56841 40668 5 4 times a day Subcut aneous False Hydrocortis one 1 % topical ointment [generic] 1 application Topical Twice daily For tinea *mix 1:1 with clotrimazole cream and apply to clean/dry groin rash 1 applica peggy 09/19 Active 2023 02968 13998 6 Twice daily Topica l False Humalog KwikPen (U-100) Insulin 100 unit/mL subcutaneou s 08/31 Inactiv e 2023 78545 79046 9 MediHoney HCS 4 1/2in X 4 1/2in bandage Cleanse area with NSS, apply one medihoney hydrocolloid dressing, non adherent dressing, kerlix secure with paper tape daily. For wound stage III 1 2023 Active 2023 41348 38727 1 Once daily Topica l False Problems Code Description Start Date End Date Status D64.9 Anemia, unspecified 08/25/2024 Activ e I25.10 Atherosclerotic hear t disease of [place] coronary artery without angina pectoris 08/25/2024 Active [...] Temperature SpO2 Blood Sugar Pulse Respirations 004 95397 8 67.00 mm[Hg] - Sitting 145.00 mm[Hg] - Sitting 98.50 Forehead Scan 96.00 % 81.00/ min 16.00/min 06021 004 41873 2 67.00 mm[Hg] - Sitting 145.00 mm[Hg] - Sitting 98.50 Tympanic 81.00/ min 16.00/min 39595 004 11848 5 56.00 mm[Hg] - Sitting 142.00 mm[Hg] - Sitting 136.40 NI 100.20 Tympanic 96.00 % 92.00/ min 18.00/min 13055 004 45703 6 13225 004 90359 4 143.00 mg/dL 004 16689 0 97.80 Tympanic 01034 005 68336 7 60.00 mm[Hg] - Sitting 140.00 mm[Hg] - Sitting 98.00 Tympanic 84.00/ min 18.00/min 33142 005 80155 0 63.00 mm[Hg] - Sitting 141.00 mm[Hg] - Sitting 98.20 Tympanic 92.00 % 63.00/ min 16.00/min 34237 005 11231 8 69.00 mm[Hg] - Sitting 106.00 mm[Hg] - Sitting 97.20 Tympanic 63603 005 67876 7 69.00/ min 16.00/min 71722 005 69974 3 69.00 mm[Hg] - Sitting 106.00 mm[Hg] - Sitting 98.20 Tympanic 69.00/ min 16.00/min 18042 005 73706 1 367.00 mg/dL 67049 005 18655 2 97.20 Tympanic 63767 005 18903 4 97.20 Tympanic 28633 005 95082 0 69.00 mm[Hg] - Sitting 106.00 mm[Hg] - Sitting 69.00/ min 29988 005 46399 3 452.00 mg/dL 20346 005 87684 3 452.00 mg/dL 92746 005 15412 5 352.00 mg/dL 66432 005 17809 3 352.00 mg/dL 04817 005 24851 7 98.20 Tympanic 82175 005 33358 3 101.00 mg/dL 71971 005 8 101.00 mg/dL 40263 006 91986 4 66.00 mm[Hg] - Sitting 107.00 mm[Hg] - Sitting 98.00 Tympanic 66.00/ min 18.00/min 51496 006 14383 0 62.00 mm[Hg] - Sitting 162.00 mm[Hg] - Sitting 98.20 Tympanic 96.00 % 60.00/ min 16.00/min 93217 006 36273 4 62.00 mm[Hg] - Sitting 162.00 mm[Hg] - Sitting 98.00 Tympanic 70.00/ min 18.00/min 87417 006 54026 8 62.00 mm[Hg] - Sitting 162.00 mm[Hg] - Sitting 98.20 Tympanic 70.00/ min 18.00/min 71770 006 01037 2 66.00 mm[Hg] - Sitting 132.00 mm[Hg] - Sitting 98.60 Tympanic 74.00/ min 16.00/min 55027 006 98558 5 159.00 mg/dL 26755 006 25967 1 159.00 mg/dL 09962 006 55006 8 98.00 Tympanic 11193 006 44315 2 62.00 mm[Hg] - Sitting 162.00 mm[Hg] - Sitting 70.00/ min 15125 006 19301 7 264.00 mg/dL 49563 006 55093 7 264.00 mg/dL 90930 006 50708 4 196.00 mg/dL 03105 006 54359 3 98.20 Tympanic 02431 006 64881 6 271.00 mg/dL 83346 007 26617 3 97.20 Tympanic 99045 007 33827 2 63.00 mm[Hg] - Sitting 132.00 mm[Hg] - Sitting 98.50 Tympanic 94.00 % 66.00/ min 16.00/min 02701 007 75096 5 188.00 mg/dL 22493 007 84319 2 188.00 mg/dL 58251 007 03387 2 188.00 mg/dL 12868 007 90801 7 97.20 Tympanic 77462 007 04471 6 97.20 Tympanic 67558 007 91693 5 67.00 mm[Hg] - Sitting 152.00 mm[Hg] - Sitting 68.00/ min 94804 007 96168 0 141.00 mg/dL 30219 007 49237 3 141.00 mg/dL 57656 007 31477 1 366.00 mg/dL 06848 007 75638 7 366.00 mg/dL 25194 007 11143 7 98.00 Tympanic 52677 007 21644 6 324.00 mg/dL 82827 007 46017 3 98.00 Tympanic 83710 007 67289 7 324.00 mg/dL 08472 008 38701 0 98.00 Tympanic 98788 008 61139 2 97.90 Tympanic 31616 008 87189 0 98.20 Tympanic 43988 008 80645 0 73.00 mm[Hg] - Sitting 156.00 mm[Hg] - Sitting 98.60 Tympanic 99.00 % 66.00/ min 20.00/min 11078 008 14216 5 137.00 mg/dL 24931 008 48350 7 137.00 mg/dL 22073 008 06676 2 97.90 Tympanic 36644 008 86785 1 137.00 mg/dL 08980 008 98480 8 97.90 Tympanic 27204 008 99766 5 67.00 mm[Hg] - Sitting 124.00 /min 61673 008 41122 6 212.00 mg/dL 86524 008 96131 6 212.00 mg/dL 32288 008 50782 9 317.00 mg/dL 05997 008 51172 4 317.00 mg/dL 02156 008 14975 8 252.00 mg/dL 47300 008 26363 0 98.70 Tympanic 10368 008 76325 7 252.00 mg/dL 01025 008 65810 3 98.70 Tympanic 68290 009 17782 9 98.70 Tympanic 85977 009 65176 3 98.20 Tympanic 51227 009 48489 5 98.40 Tympanic 91003 009 31339 5 57.00 mm[Hg] - Sitting 129.00 mm[Hg] - Sitting 98.30 Tympanic 97.00 % 65.00/ min 18.00/min 61021 009 85564 1 255.00 mg/dL 29070 009 38777 4 255.00 mg/dL 88019 009 50422 5 98.20 Tympanic 13948 009 71552 0 255.00 mg/dL 83673 009 76208 0 98.20 Tympanic 42678 009 38292 4 63.00 mm[Hg] - Lying Down 102.00 mm[Hg] - Lying Down 58.00/ min 95067 009 03971 0 167.00 mg/dL 35709 009 89841 1 167.00 mg/dL 29357 009 39353 2 164.00 mg/dL 48730 009 23238 1 164.00 mg/dL 56259 009 19526 5 208.00 mg/dL 47970 010 63509 3 98.40 Tympanic 93254 010 60442 5 98.40 Tympanic 07425 010 86040 7 66 NI 02597 010 94607 4 60.00 mm[Hg] - Sitting 143.00 mm[Hg] - Sitting 98.90 Tympanic 98.00 % 67.00/ min 18.00/min 04996 010 81416 2 214.00 mg/dL 83894 010 47147 0 214.00 mg/dL 53074 010 29518 7 214.00 mg/dL 72269 010 89726 6 64.00 mm[Hg] - Sitting 110.00 mm[Hg] - Sitting 72.00/ min 26254 010 37592 7 98.40 Tympanic 48414 010 31772 1 212.00 mg/dL 82585 010 35060 2 212.00 mg/dL 15658 010 61605 1 115.00 mg/dL 40230 010 99063 0 115.00 mg/dL 52913 010 13175 4 98.50 Tympanic 16550 010 72065 4 150.00 mg/dL 55254 010 24248 0 150.00 mg/dL 40899 011 36416 9 98.60 Tympanic 29676 011 00357 1 67.00 mm[Hg] - Sitting 144.00 mm[Hg] - Sitting 98.20 Tympanic 98.00 % 61.00/ min 18.00/min 43843 011 97689 7 290.00 mg/dL 31590 011 86623 2 290.00 mg/dL 79644 011 32680 2 290.00 mg/dL 51263 011 87663 7 54.00 mm[Hg] - Sitting 136.00 mm[Hg] - Sitting 101.00 /min 29378 011 64020 7 98.60 Tympanic 45784 011 00149 5 240.00 mg/dL 60879 011 52531 1 240.00 mg/dL 74104 011 18711 1 156.00 mg/dL 98985 011 55473 9 156.00 mg/dL 81487 011 53351 0 97.80 Tympanic 12505 011 10221 8 343.00 mg/dL 88575 012 50424 9 97.90 Tympanic 84917 012 12491 2 466.00 mg/dL 61759 012 55649 1 466.00 mg/dL 92867 012 69840 3 466.00 mg/dL 61224 012 76946 8 97.90 Tympanic 63720 012 56065 8 56.00 mm[Hg] - Sitting 96.00 mm[Hg] - Sitting 61.00/ min 70692 012 41056 7 350.00 mg/dL 41048 012 69956 5 350.00 mg/dL 13533 012 88724 6 111.00 mg/dL 16456 012 65138 0 111.00 mg/dL 76321 012 69395 5 98.40 Tympanic 46374 012 10984 6 114.00 mg/dL 72182 013 42618 4 74.00 mm[Hg] - Sitting 112.00 mm[Hg] - Sitting 98.40 Tympanic 70.00/ min 18.00/min 06373 013 18410 8 244.00 mg/dL 32357 013 64323 7 244.00 mg/dL 64369 013 41816 1 244.00 mg/dL 40094 013 45464 1 98.20 Tympanic 27829 013 42338 7 72.00 mm[Hg] - Sitting 119.00 mm[Hg] - Sitting 76.00/ min 60558 013 92834 7 253.00 mg/dL 69264 013 52381 4 253.00 mg/dL 04054 013 33585 9 156.00 mg/dL 47272 013 25898 5 156.00 mg/dL 17497 013 03742 4 97.90 Tympanic 87245 013 39929 5 189.00 mg/dL 82854 014 16713 9 98.10 Tympanic 43071 014 88707 0 61.00 mm[Hg] - Sitting 139.00 mm[Hg] - Sitting 98.20 Forehead Scan 99.00 % 66.00/ min 18.00/min 64501 014 58277 3 169.00 mg/dL 07236 014 16778 3 98.10 Tympanic 18983 014 26356 3 75.00 mm[Hg] - Sitting 121.00 mm[Hg] - Sitting 71.00/ min 20786 014 76906 9 221.00 mg/dL 78451 014 98110 9 62.00 mg/dL 83191 014 76621 5 62.00 mg/dL 80383 014 30151 8 156.00 mg/dL 59896 014 77567 6 98.10 Tympanic 88288 014 29047 7 156.00 mg/dL 71242 015 00616 4 95107 015 59849 7 62.00 mm[Hg] - Sitting 142.00 mm[Hg] - Sitting 98.20 Tympanic 99.00 % 67.00/ min 18.00/min 36153 015 17582 9 120.00 mg/dL 45291 015 79507 7 98.00 Tympanic 14213 015 89698 2 82.00 mm[Hg] - Sitting 119.00 /min 10262 015 41796 9 110.00 mg/dL 21052 015 95165 6 104.00 mg/dL 85037 015 85472 0 100.00 mg/dL 76645 015 35204 2 98.10 Tympanic 28527 015 34860 6 100.00 mg/dL 99993 016 92057 2 67.00 mm[Hg] - Sitting 147.00 mm[Hg] - Sitting 99.00 Tympanic 99.00 % 78.00/ min 20.00/min 21907 016 32204 5 158.00 mg/dL 42828 016 01068 1 158.00 mg/dL 76029 016 60743 2 158.00 mg/dL 60948 016 37470 0 66.00 mm[Hg] - Sitting 121.00 mm[Hg] - Sitting 74.00/ min 58523 016 54980 1 97.00 mg/dL 84066 016 05322 5 97.00 mg/dL 63272 016 38187 4 78.00 mg/dL 70806 016 37508 6 78.00 mg/dL 77764 016 22347 5 248.00 mg/dL 64999 016 48684 8 248.00 mg/dL 37260 017 15350 3 54.00 mm[Hg] - Sitting 142.00 mm[Hg] - Sitting 98.30 Tympanic 99.00 % 76.00/ min 18.00/min 82293 017 93579 4 267.00 mg/dL 55468 017 99885 6 73.00 mm[Hg] - Sitting 109.00 mm[Hg] - Sitting 70.00/ min 64629 017 49170 1 184.00 mg/dL 91387 017 01832 5 184.00 mg/dL 66929 017 68575 9 248.00 mg/dL 96516 017 81458 8 299.00 mg/dL 26644 017 45319 3 299.00 mg/dL 01983 018 85997 3 168.00 mg/dL 018 46472 0 75.00 mm[Hg] - Sitting 121.00 mm[Hg] - Sitting 70.00/ min 018 02613 7 264.00 mg/dL Immunizations Vaccine Date Status COVID-19 09/20/2023 Completed Other 10/08/2023 Completed Shingles 05/27/2011 Completed Tetanus 04/13/2022 Completed TDaP 04/13/2022 Completed Shingles 2 10/05/2018 Completed
--- OUTSIDE RECORDS SUMMARY | 2024-10-03 11:11 | External Medical Summary | Continuity Of Care Document ---
Author Name Unknown Address [address] [address] Organization [facility] () Care Team Providers Care Supervisor [employer] Name Role Phone DO Machado Amy Primary Care Provider [phone] Allergies Allergy Reaction Start Date End Date [...] 3 0.1 mL 08/29 Inactiv e 2023 51268 35133 0 1 time Intrad ermal False Tubersol 5 tub. unit/0.1 mL intradermal injection solution [Tuberculin PPD] 0.1mL Intradermal 1 time For PPD 2nd Step Give 2nd Step PPD Day 1 and Read results Day 3 (schedule 7 days after 1st READ) 0.1mL 09/08 Active 2023 58410 62160 0 1 time Intrad ermal False Humalog [...] order For Diabetes 08/25 Inactiv e 2023 78114 64218 9 4 times a day Subcut aneous False Aspirin 325 mg tablet [generic] 325 By Mouth Twice daily For Anticoagulati on 325 09/25 Active 2023 03073 11739 1 Twice daily By Mouth False Ferrous sulfate 325 mg (65 mg iron) tablet [generic] 325 By Mouth Once daily For anemia 325 2023 Active 2023 15808 82188 5 Once daily By Mouth False Linezolid 600 mg tablet [generic] 600 mg By Mouth Every 12 hours For MRSA INFECTION L BKA 600 mg 08/25 Inactiv e 2023 53976 41183 1 Every 12 hours By Mouth False Cefpodoxime 200 mg tablet [generic] 400 mg By Mouth Twice daily For MRSA INFECTION L BKA 400 mg 08/25 Inactiv e 2023 75871 14071 0 Twice daily By Mouth False Coenzyme Q10 100 mg tablet [generic] 100 mg By Mouth Once daily For SUPP 100 mg 2023 Active 2023 88519 40471 0 Once daily By Mouth False Levothyroxi ne 50 mcg tablet [generic] 50mcg By Mouth Once daily For hypothyroidis m 50mcg 2023 Active 2023 58223 88661 0 Once daily By Mouth False One A Day Men Complete 240 mcg-25 mcg-300 mcg tablet 1 tab By Mouth Once daily For supplement 1 tab 2023 Active 2023 75550 30802 1 Once daily By Mouth False Cholecalcif adalberto (vitamin D3) 50 mcg (2,000 unit) tablet [generic] 1 TAB By Mouth Once daily For SUPP 1 TAB 2023 Active 2023 46035 60613 1 Once daily By Mouth False Cetirizine 10 mg tablet [generic] 1 TAB By Mouth At bedtime For Allergies 1 TAB 2023 Active 2023 91692 24464 0 At bedtime By Mouth False Timolol maleate 0.25 % eye drops [generic] 1 drop Both Eyes Twice daily For glaucoma 1 drop 2023 0000 /0000 Active 2023 78209 45259 5 Twice daily Both Eyes False Alendronate 35 mg tablet [generic] 35mg By Mouth Every week For SIADH 35mg 08/31 Inactiv e 2023 62000 70710 5 Every week By Mouth False Lantus Solostar U-100 Insulin 100 unit/mL (3 mL) subcutaneou s pen 18 units Subcutaneous Every morning For DIABETES 18 units 08/25 Inactiv e 2023 73934 97534 0 Every morning Subcut aneous False Lantus Solostar U-100 Insulin 100 unit/mL (3 mL) subcutaneou s pen 18 units Subcutaneous Every morning For DIABETES 18 units 2023 Active 2023 21004 82263 0 Every morning Subcut aneous False Linezolid 600 mg tablet [generic] 600 mg By Mouth Every 12 hours For MRSA INFECTION L BKA 600 mg 08/28 Inactiv e 2023 81267 84184 1 Every 12 hours By Mouth False [...] order For Diabetes 08/31 Inactiv e 2023 68115 93348 9 4 times a day Subcut aneous False Cefpodoxime 200 mg tablet [generic] 400 mg By Mouth Twice daily For MRSA INFECTION L BKA 400 mg 08/28 Inactiv e 2023 72230 04743 0 Twice daily By Mouth False Brimonidine 0.1 % eye drops [generic] 1 drop Both Eyes Twice daily For glaucoma 1 drop 2023 Active 2023 75906 61759 0 Twice daily Both Eyes False Metoprolol succinate ER 50 mg tablet,exte nded release 24 hr [generic] 50 mg By Mouth Once daily HOLD FOR SBP <100, or pulse <60 For HTN 50 mg 2023 Active 2023 59762 05291 1 Once daily By Mouth False Amlodipine 2.5 mg tablet [generic] 2.5 mg By Mouth Once daily For HTN 2.5 mg 2023 Active 2023 05825 28111 5 Once daily By Mouth False Docusate sodium 100 mg capsule [generic] 100mg By Mouth Twice daily as needed For constipation HOLD FOR LOOSE STOOLS 100mg 2023 Active 2023 08363 18916 1 Twice daily as needed By Mouth False Atorvastati n 40 mg tablet [generic] 40mg By Mouth Once daily For HDL 40mg 08/26 Inactiv e 2023 15075 78783 5 Once daily By Mouth False Tylenol 325 mg tablet 2 tabs By Mouth Every 4 hours as needed For Pain DO NOT EXCEED 3000 MG APAP/24 Hours 2 tabs 2023 Active 2023 98154 60300 0 Every 4 hours as needed By Mouth False Tylenol 325 mg tablet 2 tabs By Mouth Every 4 hours as needed For Fever >100 DO NOT EXCEED 3000 MG APAP/24 Hours 2 tabs 2023 Active 2023 21612 22753 0 Every 4 hours as needed By Mouth False Dulcolax (bisacodyl) 10 mg rectal suppository One Suppository per rectum PRN if Milk of Magnisia ineffective. Give on day 5 of no BM 1 sup 2023 Active 2023 35035 01711 1 Daily as needed Rectal False Fleet Enema 19 gram-7 gram/118 mL Administer per rectum PRN one time if dulcolax suppository not effective. Give on day 6 of no BM 1 2023 Active 2023 25474 09782 6 Daily as needed Rectal False Dextrose 50 % in water (D50W) intravenous solution [generic] Dextrose 50% evonne 20-50 ml (slow push) Intravenous if Glucagon not effective after 15 minutes. CALL 911 for ED Evaluation. 50% evonne 2023 Active 2023 40134 65433 9 Intrav enous False Glucagon (HCl) Emergency Kit 1 mg solution for injection Administer Glucagon 1 mg Intramuscular if 15 minutes after GLucose Gel is administered Glucose remains less than 70 1 mg 2023 Active 2023 27844 06461 2 Intram uscula r False Glucose Gel 40 % oral gel [Dextrose] PRN If resident is unable to swallow (with or without symptoms) and Glucose results less than 70 give GLucose 40% Gel 1 tube orally - Recheck Glucose 15 minutes after administratio n. 1 tube 2023 Active 2023 76232 20064 8 By Mouth False Milk of Magnesia 400 mg/5 mL oral suspension [Magnesium hydroxide] PRN 30ml By Mouth Daily as needed for constipation one time daily if no BM, on day 4 of no BM (PRN refer to instructions) For Constipation 30 mL 2023 Active 2023 90756 41625 6 Daily as needed By Mouth False Atorvastati n 40 mg tablet [generic] 08/26 Inactiv e 2023 32178 14164 5 Atorvastati n 40 mg tablet [generic] 40mg By Mouth Once daily For HDL 40mg 2023 Active 2023 59714 71561 5 Once daily By Mouth False Insulin aspart (U-100) 100 unit/mL (3 mL) subcutaneou s pen [generic] 15 units Subcutaneous 1 time For dm 15 units 08/26 Inactiv e 2023 59293 37997 5 1 time Subcut aneous False Humalog KwikPen (U-100) Insulin 100 unit/mL subcutaneou s 15 units Subcutaneous 1 time For dm 15 units 08/27 Inactiv e 2023 74963 17973 9 1 time Subcut aneous False Linezolid 600 mg tablet [generic] 600 mg By Mouth Every 12 hours For MRSA INFECTION L BKA 600 mg 09/06 Inactiv e 2023 18175 69347 1 Every 12 hours By Mouth False Cefpodoxime 200 mg tablet [generic] 400 mg By Mouth Twice daily For MRSA INFECTION L BKA 400 mg 08/31 Inactiv e 2023 10591 91343 0 Twice daily By Mouth False Senna 8.6 mg tablet 8.6 mg By Mouth Once daily For Constipation 8.6 mg 2023 Active 2023 82623 43619 1 Once daily By Mouth False Humalog [...] abnormalities . Per Carb 2023 Active 2023 53407 98949 9 4 times a day Subcut aneous False Alendronate 35 mg tablet [generic] 08/31 Inactiv e 2023 68016 63273 5 Alendronate 35 mg tablet [generic] 35mg By Mouth Every week For Osteoporosis 35mg 2023 Active 2023 22338 67546 5 Every week By Mouth False ProSource 10 gram-100 kcal/30 mL oral liquid 30 ml By Mouth Once daily For wound healing 30 ml 2023 Active 2023 69559 08411 2 Once daily By Mouth False Clotrimazol e 1 % topical cream [generic] 1 applicaiton Topical Twice daily For tinea, apply to groin rash after cleansing and throughouly drying. Can discontinue order 3 days after rash resolves. 1 applica stacy 09/19 Active 2023 01823 07632 0 Twice daily Topica l False Humalog KwikPen (U-100) Insulin 100 unit/mL subcutaneou s 08/31 Inactiv e 2023 73694 71377 9 MediHoney HCS 4 1/2in X 4 1/2in bandage Cleanse area with NSS, apply one medihoney hydrocolloid dressing, non adherent dressing, kerlix secure with paper tape daily. For wound stage III 1 2023 Active 2023 54859 17077 1 Once daily Topica l False Problems Code Description Start Date End Date Status D64.9 Anemia, unspecified 08/25/2024 Activ e I25.10 Atherosclerotic hear t disease of [place] coronary artery without angina pectoris 08/25/2024 Active [...] weight Temperature SpO2 Blood Sugar Pulse Respirations 34086 8 67.00 mm[Hg] - Sitting 145.00 mm[Hg] - Sitting 98.50 Forehead Scan 96.00 % 81.00/ min 16.00/min 004 86370 2 67.00 mm[Hg] - Sitting 145.00 mm[Hg] - Sitting 98.50 Tympanic 81.00/ min 16.00/min 004 73638 5 56.00 mm[Hg] - Sitting 142.00 mm[Hg] - Sitting 136.40 NI 100.20 Tympanic 96.00 % 92.00/ min 18.00/min 65128 004 35454 6 74936 004 96178 4 143.00 mg/dL 97849 0 97.80 Tympanic 005 23514 7 60.00 mm[Hg] - Sitting 140.00 mm[Hg] - Sitting 98.00 Tympanic 84.00/ min 18.00/min 29002 005 45295 0 63.00 mm[Hg] - Sitting 141.00 mm[Hg] - Sitting 98.20 Tympanic 92.00 % 63.00/ min 16.00/min 61836 005 84797 8 69.00 mm[Hg] - Sitting 106.00 mm[Hg] - Sitting 97.20 Tympanic 005 87951 7 69.00/ min 16.00/min 95025 005 82899 3 69.00 mm[Hg] - Sitting 106.00 mm[Hg] - Sitting 98.20 Tympanic 69.00/ min 16.00/min 69036 005 95636 1 367.00 mg/dL 86208 005 09661 2 97.20 Tympanic 30722 005 48553 4 97.20 Tympanic 17546 005 97268 0 69.00 mm[Hg] - Sitting 106.00 mm[Hg] - Sitting 69.00/ min 58621 005 10491 3 452.00 mg/dL 83871 005 65668 3 452.00 mg/dL 95086 005 02631 5 352.00 mg/dL 58463 005 04163 3 352.00 mg/dL 27015 005 72347 7 98.20 Tympanic 70236 005 3 101.00 mg/dL 09649 005 8 101.00 mg/dL 59340 006 90236 4 66.00 mm[Hg] - Sitting 107.00 mm[Hg] - Sitting 98.00 Tympanic 66.00/ min 18.00/min 67494 006 21539 0 62.00 mm[Hg] - Sitting 162.00 mm[Hg] - Sitting 98.20 Tympanic 96.00 % 60.00/ min 16.00/min 88223 006 50929 4 62.00 mm[Hg] - Sitting 162.00 mm[Hg] - Sitting 98.00 Tympanic 70.00/ min 18.00/min 64669 006 19870 8 62.00 mm[Hg] - Sitting 162.00 mm[Hg] - Sitting 98.20 Tympanic 70.00/ min 18.00/min 24221 006 17014 2 66.00 mm[Hg] - Sitting 132.00 mm[Hg] - Sitting 98.60 Tympanic 74.00/ min 16.00/min 02791 006 13126 5 159.00 mg/dL 82371 006 85110 1 159.00 mg/dL 38798 006 20797 8 98.00 Tympanic 01564 006 55468 2 62.00 mm[Hg] - Sitting 162.00 mm[Hg] - Sitting 70.00/ min 10885 006 09966 7 264.00 mg/dL 25653 006 80675 7 264.00 mg/dL 23559 006 13057 4 196.00 mg/dL 89084 006 63766 3 98.20 Tympanic 25312 006 15133 6 271.00 mg/dL 24995 007 80333 3 97.20 Tympanic 41661 007 36169 2 63.00 mm[Hg] - Sitting 132.00 mm[Hg] - Sitting 98.50 Tympanic 94.00 % 66.00/ min 16.00/min 69117 007 68100 5 188.00 mg/dL 60424 007 37233 2 188.00 mg/dL 40462 007 28862 2 188.00 mg/dL 00466 007 04423 7 97.20 Tympanic 71670 007 24636 6 97.20 Tympanic 03358 007 17933 5 67.00 mm[Hg] - Sitting 152.00 mm[Hg] - Sitting 68.00/ min 63309 007 69866 0 141.00 mg/dL 51759 007 17164 3 141.00 mg/dL 85987 007 99233 1 366.00 mg/dL 56172 007 05220 7 366.00 mg/dL 49432 007 42412 7 98.00 Tympanic 28792 007 71409 6 324.00 mg/dL 04820 007 23078 3 98.00 Tympanic 11564 007 00365 7 324.00 mg/dL 66653 008 94862 0 98.00 Tympanic 08364 008 20516 2 97.90 Tympanic 79695 008 32059 0 98.20 Tympanic 20894 008 00969 0 73.00 mm[Hg] - Sitting 156.00 mm[Hg] - Sitting 98.60 Tympanic 99.00 % 66.00/ min 20.00/min 50762 008 69179 5 137.00 mg/dL 06123 008 37305 7 137.00 mg/dL 74966 008 09606 2 97.90 Tympanic 02047 008 25593 1 137.00 mg/dL 57162 008 34438 8 97.90 Tympanic 07681 008 15855 5 67.00 mm[Hg] - Sitting 124.00 /min 29928 008 13720 6 212.00 mg/dL 69924 008 23972 6 212.00 mg/dL 78599 008 29033 9 317.00 mg/dL 01182 008 17932 4 317.00 mg/dL 27679 008 64494 8 252.00 mg/dL 88250 008 05627 0 98.70 Tympanic 01928 008 45068 7 252.00 mg/dL 48268 008 17321 3 98.70 Tympanic 78283 009 11750 9 98.70 Tympanic 78038 009 65489 3 98.20 Tympanic 52425 009 61052 5 98.40 Tympanic 86340 009 21711 5 57.00 mm[Hg] - Sitting 129.00 mm[Hg] - Sitting 98.30 Tympanic 97.00 % 65.00/ min 18.00/min 81886 009 51775 1 255.00 mg/dL 03925 009 90590 4 255.00 mg/dL 90466 009 07081 5 98.20 Tympanic 57480 009 20401 0 255.00 mg/dL 44126 009 76895 0 98.20 Tympanic 94609 009 47480 4 63.00 mm[Hg] - Lying Down 102.00 mm[Hg] - Lying Down 58.00/ min 28127 009 17904 0 167.00 mg/dL 69329 009 18020 1 167.00 mg/dL 65540 009 49511 2 164.00 mg/dL 24132 009 18928 1 164.00 mg/dL 45812 009 52141 5 208.00 mg/dL 95265 010 36150 3 98.40 Tympanic 30829 010 61959 5 98.40 Tympanic 13889 010 47996 7 66 [place] [address]86 010 77786 4 60.00 mm[Hg] - Sitting 143.00 mm[Hg] - Sitting 98.90 Tympanic 98.00 % 67.00/ min 18.00/min 94807 010 90218 2 214.00 mg/dL 97322 010 65551 0 214.00 mg/dL 14883 010 33381 7 214.00 mg/dL 17561 010 12897 6 64.00 mm[Hg] - Sitting 110.00 mm[Hg] - Sitting 72.00/ min 25303 010 06459 7 98.40 Tympanic 99421 010 35402 1 212.00 mg/dL 14136 010 53324 2 212.00 mg/dL 93166 010 52528 1 115.00 mg/dL 04421 010 78215 0 115.00 mg/dL 41850 010 70435 4 98.50 Tympanic 15297 010 60451 4 150.00 mg/dL 66864 010 21243 0 150.00 mg/dL 60960 011 84109 9 98.60 Tympanic 93168 011 52854 1 67.00 mm[Hg] - Sitting 144.00 mm[Hg] - Sitting 98.20 Tympanic 98.00 % 61.00/ min 18.00/min 36970 011 43229 7 290.00 mg/dL 24239 011 89798 2 290.00 mg/dL 53056 011 39313 2 290.00 mg/dL 82805 011 27734 7 54.00 mm[Hg] - Sitting 136.00 mm[Hg] - Sitting 101.00 /min 53877 011 58954 7 98.60 Tympanic 55614 011 98119 5 240.00 mg/dL 71011 011 50502 1 240.00 mg/dL 29967 011 20516 1 156.00 mg/dL 49003 011 34940 9 156.00 mg/dL 17677 011 39912 0 97.80 Tympanic 62991 011 79453 8 343.00 mg/dL 92041 012 16963 9 97.90 Tympanic 12532 012 46287 2 466.00 mg/dL 38874 012 80830 1 466.00 mg/dL 17836 012 88828 3 466.00 mg/dL 70366 012 66952 8 97.90 Tympanic 44402 012 37802 8 56.00 mm[Hg] - Sitting 96.00 mm[Hg] - Sitting 61.00/ min 98164 012 50590 7 350.00 mg/dL 29611 012 17118 5 350.00 mg/dL 72889 012 93053 6 111.00 mg/dL 99065 012 63337 0 111.00 mg/dL 35529 012 82130 5 98.40 Tympanic 86292 012 50770 6 114.00 mg/dL 41612 013 82090 4 74.00 mm[Hg] - Sitting 112.00 mm[Hg] - Sitting 98.40 Tympanic 70.00/ min 18.00/min 96434 013 97375 8 244.00 mg/dL 13094 013 82235 7 244.00 mg/dL 36433 013 06559 1 244.00 mg/dL 63006 013 98754 1 98.20 Tympanic 44280 013 22652 7 72.00 mm[Hg] - Sitting 119.00 mm[Hg] - Sitting 76.00/ min 74747 013 87035 7 253.00 mg/dL 51527 013 67950 4 253.00 mg/dL 05597 013 48426 9 156.00 mg/dL 90776 013 53180 5 156.00 mg/dL 87552 013 34471 4 97.90 Tympanic 88001 013 44844 5 189.00 mg/dL 62173 014 52148 9 98.10 Tympanic 29369 014 73877 0 61.00 mm[Hg] - Sitting 139.00 mm[Hg] - Sitting 98.20 Forehead Scan 99.00 % 66.00/ min 18.00/min 01610 014 06825 3 169.00 mg/dL 85034 014 91397 3 98.10 Tympanic 67415 014 78508 3 75.00 mm[Hg] - Sitting 121.00 mm[Hg] - Sitting 71.00/ min 43084 014 15437 9 221.00 mg/dL 84238 014 63703 9 62.00 mg/dL 66716 014 98569 5 62.00 mg/dL 22551 014 12308 8 156.00 mg/dL 21622 014 38341 6 98.10 Tympanic 01881 014 04827 7 156.00 mg/dL 28842 015 04918 4 66127 015 86297 7 62.00 mm[Hg] - Sitting 142.00 mm[Hg] - Sitting 98.20 Tympanic 99.00 % 67.00/ min 18.00/min 35387 015 08824 9 120.00 mg/dL 84394 015 28022 7 98.00 Tympanic 82696 015 20427 2 82.00 mm[Hg] - Sitting 119.00 /min 96849 015 77263 9 110.00 mg/dL 15723 015 53198 6 104.00 mg/dL 45712 015 96805 0 100.00 mg/dL 95557 015 11449 2 98.10 Tympanic 07448 015 44373 6 100.00 mg/dL 19648 016 47782 2 67.00 mm[Hg] - Sitting 147.00 mm[Hg] - Sitting 99.00 Tympanic 99.00 % 78.00/ min 20.00/min 26851 016 24167 5 158.00 mg/dL 23367 016 55388 1 158.00 mg/dL 57954 016 38500 2 158.00 mg/dL 89336 016 47678 0 66.00 mm[Hg] - Sitting 121.00 mm[Hg] - Sitting 74.00/ min 47473 016 22551 1 97.00 mg/dL 33238 016 52723 5 97.00 mg/dL 48106 016 98996 4 78.00 mg/dL 59316 016 90973 6 78.00 mg/dL 82106 016 55317 5 248.00 mg/dL 26886 016 48127 8 248.00 mg/dL Immunizations Vaccine Date Status COVID-19 09/20/2023 Completed Other 10/08/2023 Completed Shingles 05/27/2011 Completed Tetanus 04/13/2022 Completed TDaP 04/13/2022 Completed Shingles 2 10/05/2018 Completed
--- OUTSIDE RECORDS SUMMARY | 2024-10-03 11:11 | External Medical Summary | Continuity Of Care Document ---
Author Name Unknown Address [address] [address] Organization [facility] () Care Team Providers Care Desktop Administrator Name Role Phone DO Machado Amy Primary Care Provider [phone] Allergies Allergy Reaction Start Date End Date [...] 3 0.1 mL 08/29 Inactiv e 2023 43852 88096 0 1 time Intrad ermal False Tubersol 5 tub. unit/0.1 mL intradermal injection solution [Tuberculin PPD] 0.1mL Intradermal 1 time For PPD 2nd Step Give 2nd Step PPD Day 1 and Read results Day 3 (schedule 7 days after 1st READ) 0.1mL 09/08 Active 2023 88482 43134 0 1 time Intrad ermal False Humalog [...] order For Diabetes 08/25 Inactiv e 2023 36420 84010 9 4 times a day Subcut aneous False Aspirin 325 mg tablet [generic] 325 By Mouth Twice daily For Anticoagulati on 325 09/25 Active 2023 30239 00451 1 Twice daily By Mouth False Ferrous sulfate 325 mg (65 mg iron) tablet [generic] 325 By Mouth Once daily For anemia 325 2023 Active 2023 34081 57064 5 Once daily By Mouth False Linezolid 600 mg tablet [generic] 600 mg By Mouth Every 12 hours For MRSA INFECTION L BKA 600 mg 08/25 Inactiv e 2023 07518 56059 1 Every 12 hours By Mouth False Cefpodoxime 200 mg tablet [generic] 400 mg By Mouth Twice daily For MRSA INFECTION L BKA 400 mg 08/25 Inactiv e 2023 82161 16794 0 Twice daily By Mouth False Coenzyme Q10 100 mg tablet [generic] 100 mg By Mouth Once daily For SUPP 100 mg 2023 Active 2023 96661 92389 0 Once daily By Mouth False Levothyroxi ne 50 mcg tablet [generic] 50mcg By Mouth Once daily For hypothyroidis m 50mcg 2023 Active 2023 84650 56335 0 Once daily By Mouth False One A Day Men Complete 240 mcg-25 mcg-300 mcg tablet 1 tab By Mouth Once daily For supplement 1 tab 2023 Active 2023 79501 43929 1 Once daily By Mouth False Cholecalcif adalberto (vitamin D3) 50 mcg (2,000 unit) tablet [generic] 1 TAB By Mouth Once daily For SUPP 1 TAB 2023 Active 2023 38200 47135 1 Once daily By Mouth False Cetirizine 10 mg tablet [generic] 1 TAB By Mouth At bedtime For Allergies 1 TAB 2023 Active 2023 17894 00951 0 At bedtime By Mouth False Timolol maleate 0.25 % eye drops [generic] 1 drop Both Eyes Twice daily For glaucoma 1 drop 2023 0000 /0000 Active 2023 68400 37115 5 Twice daily Both Eyes False Alendronate 35 mg tablet [generic] 35mg By Mouth Every week For SIADH 35mg 08/31 Inactiv e 2023 91456 54712 5 Every week By Mouth False Lantus Solostar U-100 Insulin 100 unit/mL (3 mL) subcutaneou s pen 18 units Subcutaneous Every morning For DIABETES 18 units 08/25 Inactiv e 2023 61573 45031 0 Every morning Subcut aneous False Lantus Solostar U-100 Insulin 100 unit/mL (3 mL) subcutaneou s pen 18 units Subcutaneous Every morning For DIABETES 18 units 2023 Active 2023 20323 86768 0 Every morning Subcut aneous False Linezolid 600 mg tablet [generic] 600 mg By Mouth Every 12 hours For MRSA INFECTION L BKA 600 mg 08/28 Inactiv e 2023 03533 19568 1 Every 12 hours By Mouth False [...] order For Diabetes 08/31 Inactiv e 2023 63505 77642 9 4 times a day Subcut aneous False Cefpodoxime 200 mg tablet [generic] 400 mg By Mouth Twice daily For MRSA INFECTION L BKA 400 mg 08/28 Inactiv e 2023 58262 63127 0 Twice daily By Mouth False Brimonidine 0.1 % eye drops [generic] 1 drop Both Eyes Twice daily For glaucoma 1 drop 2023 Active 2023 56994 80838 0 Twice daily Both Eyes False Metoprolol succinate ER 50 mg tablet,exte nded release 24 hr [generic] 50 mg By Mouth Once daily HOLD FOR SBP <100, or pulse <60 For HTN 50 mg 2023 Active 2023 22286 14432 1 Once daily By Mouth False Amlodipine 2.5 mg tablet [generic] 2.5 mg By Mouth Once daily For HTN 2.5 mg 2023 Active 2023 97036 38175 5 Once daily By Mouth False Docusate sodium 100 mg capsule [generic] 100mg By Mouth Twice daily as needed For constipation HOLD FOR LOOSE STOOLS 100mg 2023 Active 2023 47861 82564 1 Twice daily as needed By Mouth False Atorvastati n 40 mg tablet [generic] 40mg By Mouth Once daily For HDL 40mg 08/26 Inactiv e 2023 28839 54889 5 Once daily By Mouth False Tylenol 325 mg tablet 2 tabs By Mouth Every 4 hours as needed For Pain DO NOT EXCEED 3000 MG APAP/24 Hours 2 tabs 2023 Active 2023 02024 54643 0 Every 4 hours as needed By Mouth False Tylenol 325 mg tablet 2 tabs By Mouth Every 4 hours as needed For Fever >100 DO NOT EXCEED 3000 MG APAP/24 Hours 2 tabs 2023 Active 2023 01464 93987 0 Every 4 hours as needed By Mouth False Dulcolax (bisacodyl) 10 mg rectal suppository One Suppository per rectum PRN if Milk of Magnisia ineffective. Give on day 5 of no BM 1 sup 2023 Active 2023 13648 30149 1 Daily as needed Rectal False Fleet Enema 19 gram-7 gram/118 mL Administer per rectum PRN one time if dulcolax suppository not effective. Give on day 6 of no BM 1 2023 Active 2023 98082 09564 6 Daily as needed Rectal False Dextrose 50 % in water (D50W) intravenous solution [generic] Dextrose 50% evonne 20-50 ml (slow push) Intravenous if Glucagon not effective after 15 minutes. CALL 911 for ED Evaluation. 50% evonne 2023 Active 2023 24355 71075 9 Intrav enous False Glucagon (HCl) Emergency Kit 1 mg solution for injection Administer Glucagon 1 mg Intramuscular if 15 minutes after GLucose Gel is administered Glucose remains less than 70 1 mg 2023 Active 2023 87804 51444 2 Intram uscula r False Glucose Gel 40 % oral gel [Dextrose] PRN If resident is unable to swallow (with or without symptoms) and Glucose results less than 70 give GLucose 40% Gel 1 tube orally - Recheck Glucose 15 minutes after administratio n. 1 tube 2023 Active 2023 29422 18400 8 By Mouth False Milk of Magnesia 400 mg/5 mL oral suspension [Magnesium hydroxide] PRN 30ml By Mouth Daily as needed for constipation one time daily if no BM, on day 4 of no BM (PRN refer to instructions) For Constipation 30 mL 2023 Active 2023 92781 42769 6 Daily as needed By Mouth False Atorvastati n 40 mg tablet [generic] 08/26 Inactiv e 2023 19155 47064 5 Atorvastati n 40 mg tablet [generic] 40mg By Mouth Once daily For HDL 40mg 2023 Active 2023 13254 00175 5 Once daily By Mouth False Insulin aspart (U-100) 100 unit/mL (3 mL) subcutaneou s pen [generic] 15 units Subcutaneous 1 time For dm 15 units 08/26 Inactiv e 2023 73873 74482 5 1 time Subcut aneous False Humalog KwikPen (U-100) Insulin 100 unit/mL subcutaneou s 15 units Subcutaneous 1 time For dm 15 units 08/27 Inactiv e 2023 33413 72926 9 1 time Subcut aneous False Linezolid 600 mg tablet [generic] 600 mg By Mouth Every 12 hours For MRSA INFECTION L BKA 600 mg 09/06 Inactiv e 2023 09333 13394 1 Every 12 hours By Mouth False Cefpodoxime 200 mg tablet [generic] 400 mg By Mouth Twice daily For MRSA INFECTION L BKA 400 mg 08/31 Inactiv e 2023 29567 02722 0 Twice daily By Mouth False Senna 8.6 mg tablet 8.6 mg By Mouth Once daily For Constipation 8.6 mg 09/07 Inactiv e 2023 31279 38062 1 Once daily By Mouth False Humalog [...] abnormalities . Per Carb 2023 Active 2023 11637 37495 9 4 times a day Subcut aneous False Alendronate 35 mg tablet [generic] 08/31 Inactiv e 2023 48993 27745 5 Alendronate 35 mg tablet [generic] 35mg By Mouth Every week For Osteoporosis 35mg 2023 Active 2023 67794 74260 5 Every week By Mouth False ProSource 10 gram-100 kcal/30 mL oral liquid 30 ml By Mouth Once daily For wound healing 30 ml 2023 Active 2023 88670 09486 2 Once daily By Mouth False Clotrimazol e 1 % topical cream [generic] 1 applicaiton Topical Twice daily For tinea, apply to groin rash after cleansing and throughouly drying. Can discontinue order 3 days after rash resolves. 1 applica stacy 09/19 Active 2023 04916 01663 0 Twice daily Topica l False MAGIC MIX 1:1:1:1 : ZINC OXIDE EXTERNAL OINTMENT 40%; HYDROCOTISO NE EXTERNAL CREAM 1%; NYSTATIN EXTERNAL CREAM [id number]/GM; SILVADENE CREAM 1% Every shift Apply topically to MASD area on coccyx/buttoc ks each shift and as needed for incontinence care For MASD on coccyx layer 2023 Active 2023 Every shift Topica l False Senna 8.6 mg tablet 8.6 mg By Mouth Once daily For Constipation 8.6 mg 09/07 Inactiv e 2023 37131 42262 1 Once daily By Mouth False Senna 8.6 mg tablet 8.6 mg By Mouth Once daily As Needed For Constipation 8.6 mg 2023 Active 2023 37281 09714 1 Once daily By Mouth False BD AutoShield Duo Pen Needle 30 gauge x 3/16in 1 pen needle Subcutaneous 4 times a day For DM 1 pen needle 2023 Active 2023 27488 69779 5 4 times a day Subcut aneous False Humalog KwikPen (U-100) Insulin 100 unit/mL subcutaneou s 08/31 Inactiv e 2023 08156 91730 9 MediHoney HCS 4 1/2in X 4 1/2in bandage Cleanse area with NSS, apply one medihoney hydrocolloid dressing, non adherent dressing, kerlix secure with paper tape daily. 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 08/25/2024 Active [...] weight Temperature SpO2 Blood Sugar Pulse Respirations 55207 8 67.00 mm[Hg] - Sitting 145.00 mm[Hg] - Sitting 98.50 Forehead Scan 96.00 % 81.00/ min 16.00/min 93803 2 67.00 mm[Hg] - Sitting 145.00 mm[Hg] - Sitting 98.50 Tympanic 81.00/ min 16.00/min 62230 004 94887 5 56.00 mm[Hg] - Sitting 142.00 mm[Hg] - Sitting 136.40 NI 100.20 Tympanic 96.00 % 92.00/ min 18.00/min 80018 004 30024 6 17368 004 75578 4 143.00 mg/dL 09830 004 83176 0 97.80 Tympanic 30920 005 28218 7 60.00 mm[Hg] - Sitting 140.00 mm[Hg] - Sitting 98.00 Tympanic 84.00/ min 18.00/min 72033 005 60063 0 63.00 mm[Hg] - Sitting 141.00 mm[Hg] - Sitting 98.20 Tympanic 92.00 % 63.00/ min 16.00/min 64211 005 34901 8 69.00 mm[Hg] - Sitting 106.00 mm[Hg] - Sitting 97.20 Tympanic 15024 005 74876 7 69.00/ min 16.00/min 22113 005 97607 3 69.00 mm[Hg] - Sitting 106.00 mm[Hg] - Sitting 98.20 Tympanic 69.00/ min 16.00/min 09757 005 51118 1 367.00 mg/dL 43352 005 82564 2 97.20 Tympanic 14886 005 02460 4 97.20 Tympanic 56263 005 76542 0 69.00 mm[Hg] - Sitting 106.00 mm[Hg] - Sitting 69.00/ min 91628 005 15382 3 452.00 mg/dL 63481 005 93046 3 452.00 mg/dL 05583 005 64263 5 352.00 mg/dL 10625 005 68288 3 352.00 mg/dL 05036 005 52888 7 98.20 Tympanic 38691 005 50573 3 101.00 mg/dL 51340 005 28917 8 101.00 mg/dL 34803 006 20847 4 66.00 mm[Hg] - Sitting 107.00 mm[Hg] - Sitting 98.00 Tympanic 66.00/ min 18.00/min 21761 006 14423 0 62.00 mm[Hg] - Sitting 162.00 mm[Hg] - Sitting 98.20 Tympanic 96.00 % 60.00/ min 16.00/min 75639 006 38195 4 62.00 mm[Hg] - Sitting 162.00 mm[Hg] - Sitting 98.00 Tympanic 70.00/ min 18.00/min 20964 006 74078 8 62.00 mm[Hg] - Sitting 162.00 mm[Hg] - Sitting 98.20 Tympanic 70.00/ min 18.00/min 50419 006 50188 2 66.00 mm[Hg] - Sitting 132.00 mm[Hg] - Sitting 98.60 Tympanic 74.00/ min 16.00/min 59202 006 97154 5 159.00 mg/dL 18683 006 08712 1 159.00 mg/dL 33195 006 23917 8 98.00 Tympanic 90405 006 09653 2 62.00 mm[Hg] - Sitting 162.00 mm[Hg] - Sitting 70.00/ min 93913 006 22325 7 264.00 mg/dL 32606 006 86529 7 264.00 mg/dL 28737 006 34145 4 196.00 mg/dL 97112 006 12882 3 98.20 Tympanic 29999 006 03093 6 271.00 mg/dL 06575 007 23334 3 97.20 Tympanic 15425 007 38243 2 63.00 mm[Hg] - Sitting 132.00 mm[Hg] - Sitting 98.50 Tympanic 94.00 % 66.00/ min 16.00/min 51077 007 76681 5 188.00 mg/dL 80477 007 28603 2 188.00 mg/dL 99653 007 22581 2 188.00 mg/dL 87296 007 85678 7 97.20 Tympanic 95881 007 27988 6 97.20 Tympanic 31908 007 37434 5 67.00 mm[Hg] - Sitting 152.00 mm[Hg] - Sitting 68.00/ min 10717 007 94210 0 141.00 mg/dL 39124 007 48183 3 141.00 mg/dL 83767 007 06217 1 366.00 mg/dL 34752 007 55761 7 366.00 mg/dL 29024 007 50483 7 98.00 Tympanic 26123 007 37888 6 324.00 mg/dL 25646 007 16700 3 98.00 Tympanic 39770 007 15899 7 324.00 mg/dL 44295 008 44637 0 98.00 Tympanic 94843 008 97881 2 97.90 Tympanic 86973 008 88159 0 98.20 Tympanic 62437 008 89906 0 73.00 mm[Hg] - Sitting 156.00 mm[Hg] - Sitting 98.60 Tympanic 99.00 % 66.00/ min 20.00/min 70385 008 70429 5 137.00 mg/dL 90026 008 48835 7 137.00 mg/dL 19896 008 37082 2 97.90 Tympanic 37171 008 29125 1 137.00 mg/dL 00948 008 09714 8 97.90 Tympanic 16639 008 74840 5 67.00 mm[Hg] - Sitting 124.00 /min 81356 008 96744 6 212.00 mg/dL 80536 008 35120 6 212.00 mg/dL 28021 008 79223 9 317.00 mg/dL 41715 008 35962 4 317.00 mg/dL 42889 008 57020 8 252.00 mg/dL 54837 008 87280 0 98.70 Tympanic 51469 008 05062 7 252.00 mg/dL 02139 008 60465 3 98.70 Tympanic 55583 009 55685 9 98.70 Tympanic 12748 009 95891 3 98.20 Tympanic 76965 009 46520 5 98.40 Tympanic 36647 009 12959 5 57.00 mm[Hg] - Sitting 129.00 mm[Hg] - Sitting 98.30 Tympanic 97.00 % 65.00/ min 18.00/min 31905 009 03698 1 255.00 mg/dL 97630 009 41142 4 255.00 mg/dL 67932 009 47928 5 98.20 Tympanic 79796 009 82004 0 255.00 mg/dL 70425 009 93223 0 98.20 Tympanic 48948 009 55039 4 63.00 mm[Hg] - Lying Down 102.00 mm[Hg] - Lying Down 58.00/ min 21492 009 00485 0 167.00 mg/dL 59567 009 57000 1 167.00 mg/dL 63562 009 09021 2 164.00 mg/dL 37201 009 36493 1 164.00 mg/dL 84440 009 79488 5 208.00 mg/dL 83240 010 95502 3 98.40 Tympanic 58210 010 27700 5 98.40 Tympanic 77124 010 98399 7 66 [place] [address] 010 10672 4 60.00 mm[Hg] - Sitting 143.00 mm[Hg] - Sitting 98.90 Tympanic 98.00 % 67.00/ min 18.00/min 75326 010 31504 2 214.00 mg/dL 31875 010 90099 0 214.00 mg/dL 90338 010 34401 7 214.00 mg/dL 08158 010 18987 6 64.00 mm[Hg] - Sitting 110.00 mm[Hg] - Sitting 72.00/ min 02859 010 65126 7 98.40 Tympanic 31735 010 78360 1 212.00 mg/dL 51288 010 31621 2 212.00 mg/dL 73529 010 50771 1 115.00 mg/dL 39180 010 24282 0 115.00 mg/dL 93233 010 27830 4 98.50 Tympanic 57387 010 24386 4 150.00 mg/dL 80662 010 08184 0 150.00 mg/dL 43781 011 54051 9 98.60 Tympanic 50722 011 33423 1 67.00 mm[Hg] - Sitting 144.00 mm[Hg] - Sitting 98.20 Tympanic 98.00 % 61.00/ min 18.00/min 27987 011 45415 7 290.00 mg/dL 08890 011 01715 2 290.00 mg/dL 41888 011 93082 2 290.00 mg/dL 34515 011 45596 7 54.00 mm[Hg] - Sitting 136.00 mm[Hg] - Sitting 101.00 /min 66370 011 21274 7 98.60 Tympanic 80654 011 43841 5 240.00 mg/dL 97795 011 92805 1 240.00 mg/dL 26947 011 32583 1 156.00 mg/dL 90925 011 43522 9 156.00 mg/dL 21835 011 99740 0 97.80 Tympanic 71158 011 59887 8 343.00 mg/dL 53461 012 72853 9 97.90 Tympanic 32954 012 61417 2 466.00 mg/dL 40874 012 80356 1 466.00 mg/dL 68131 012 58392 3 466.00 mg/dL 38686 012 02164 8 97.90 Tympanic 23906 012 32593 8 56.00 mm[Hg] - Sitting 96.00 mm[Hg] - Sitting 61.00/ min 23175 012 65540 7 350.00 mg/dL 02933 012 93075 5 350.00 mg/dL 32867 012 96880 6 111.00 mg/dL 34733 012 73191 0 111.00 mg/dL 23237 012 00936 5 98.40 Tympanic 58502 012 26655 6 114.00 mg/dL 36215 013 90821 4 74.00 mm[Hg] - Sitting 112.00 mm[Hg] - Sitting 98.40 Tympanic 70.00/ min 18.00/min 82509 013 10814 8 244.00 mg/dL 35901 013 91292 7 244.00 mg/dL 39541 013 43925 1 244.00 mg/dL 98291 013 64649 1 98.20 Tympanic 73812 013 31850 7 72.00 mm[Hg] - Sitting 119.00 mm[Hg] - Sitting 76.00/ min 74977 013 26809 7 253.00 mg/dL 58809 013 86391 4 253.00 mg/dL 40157 013 24889 9 156.00 mg/dL 18276 013 10083 5 156.00 mg/dL 28232 013 21161 4 97.90 Tympanic 77423 013 95937 5 189.00 mg/dL 68225 014 33889 9 98.10 Tympanic 49101 014 63094 0 61.00 mm[Hg] - Sitting 139.00 mm[Hg] - Sitting 98.20 Forehead Scan 99.00 % 66.00/ min 18.00/min 82238 014 04510 3 169.00 mg/dL 80154 014 30125 3 98.10 Tympanic 21353 014 60659 3 75.00 mm[Hg] - Sitting 121.00 mm[Hg] - Sitting 71.00/ min 88283 014 23827 9 221.00 mg/dL 16762 014 21455 9 62.00 mg/dL 13336 014 08037 5 62.00 mg/dL 14152 014 08901 8 156.00 mg/dL 46253 014 64066 6 98.10 Tympanic 19208 014 08053 7 156.00 mg/dL 03668 015 14924 4 54222 015 78744 7 62.00 mm[Hg] - Sitting 142.00 mm[Hg] - Sitting 98.20 Tympanic 99.00 % 67.00/ min 18.00/min 73452 015 89737 9 120.00 mg/dL 86686 015 62846 7 98.00 Tympanic 36384 015 13592 2 82.00 mm[Hg] - Sitting 119.00 /min 40844 015 47532 9 110.00 mg/dL 00533 015 17040 6 104.00 mg/dL 40557 015 36452 0 100.00 mg/dL 26096 015 06094 2 98.10 Tympanic 05381 015 85777 6 100.00 mg/dL 61053 016 84698 2 67.00 mm[Hg] - Sitting 147.00 mm[Hg] - Sitting 99.00 Tympanic 99.00 % 78.00/ min 20.00/min 72894 016 40078 5 158.00 mg/dL 14339 016 03470 1 158.00 mg/dL 34675 016 78002 2 158.00 mg/dL 40164 016 75786 0 66.00 mm[Hg] - Sitting 121.00 mm[Hg] - Sitting 74.00/ min 30781 016 15051 1 97.00 mg/dL 09745 016 47519 5 97.00 mg/dL 40571 016 12597 4 78.00 mg/dL 00996 016 55681 6 78.00 mg/dL 15784 016 62197 5 248.00 mg/dL 86628 016 73936 8 248.00 mg/dL 10060 017 70107 4 267.00 mg/dL 31901 017 39721 6 73.00 mm[Hg] - Sitting 109.00 mm[Hg] - Sitting 70.00/ min 11903 017 50035 1 184.00 mg/dL 05975 017 55261 5 184.00 mg/dL Immunizations Vaccine Date Status COVID-19 09/20/2023 Completed Other 10/08/2023 Completed Shingles 05/27/2011 Completed Tetanus 04/13/2022 Completed TDaP 04/13/2022 Completed Shingles 2 10/05/2018 Completed
--- OUTSIDE RECORDS SUMMARY | 2024-10-03 11:11 | External Medical Summary | Continuity Of Care Document ---
Author Name Unknown Address [address] [address] Organization [facility] () Care Team Providers Care Staff Development Manager Name Role Phone DO Machado Amy Primary Care Provider [phone] Allergies Allergy Reaction Start Date End Date [...] 3 0.1 mL 08/29 Inactiv e 2023 75272 06900 0 1 time Intrad ermal False Tubersol 5 tub. unit/0.1 mL intradermal injection solution [Tuberculin PPD] 0.1mL Intradermal 1 time For PPD 2nd Step Give 2nd Step PPD Day 1 and Read results Day 3 (schedule 7 days after 1st READ) 0.1mL 09/08 Active 2023 14399 26637 0 1 time Intrad ermal False Humalog [...] order For Diabetes 08/25 Inactiv e 2023 14869 43235 9 4 times a day Subcut aneous False Aspirin 325 mg tablet [generic] 325 By Mouth Twice daily For Anticoagulati on 325 09/25 Active 2023 99138 04539 1 Twice daily By Mouth False Ferrous sulfate 325 mg (65 mg iron) tablet [generic] 325 By Mouth Once daily For anemia 325 2023 Active 2023 65732 18009 5 Once daily By Mouth False Linezolid 600 mg tablet [generic] 600 mg By Mouth Every 12 hours For MRSA INFECTION L BKA 600 mg 08/25 Inactiv e 2023 28936 46548 1 Every 12 hours By Mouth False Cefpodoxime 200 mg tablet [generic] 400 mg By Mouth Twice daily For MRSA INFECTION L BKA 400 mg 08/25 Inactiv e 2023 44620 09444 0 Twice daily By Mouth False Coenzyme Q10 100 mg tablet [generic] 100 mg By Mouth Once daily For SUPP 100 mg 2023 Active 2023 37040 43597 0 Once daily By Mouth False Levothyroxi ne 50 mcg tablet [generic] 50mcg By Mouth Once daily For hypothyroidis m 50mcg 2023 Active 2023 41867 74422 0 Once daily By Mouth False One A Day Men Complete 240 mcg-25 mcg-300 mcg tablet 1 tab By Mouth Once daily For supplement 1 tab 2023 Active 2023 87523 61347 1 Once daily By Mouth False Cholecalcif adalberto (vitamin D3) 50 mcg (2,000 unit) tablet [generic] 1 TAB By Mouth Once daily For SUPP 1 TAB 2023 Active 2023 26617 10614 1 Once daily By Mouth False Cetirizine 10 mg tablet [generic] 1 TAB By Mouth At bedtime For Allergies 1 TAB 2023 Active 2023 96185 44388 0 At bedtime By Mouth False Timolol maleate 0.25 % eye drops [generic] 1 drop Both Eyes Twice daily For glaucoma 1 drop 2023 0000 /0000 Active 2023 53625 40754 5 Twice daily Both Eyes False Alendronate 35 mg tablet [generic] 35mg By Mouth Every week For SIADH 35mg 08/31 Inactiv e 2023 36433 44870 5 Every week By Mouth False Lantus Solostar U-100 Insulin 100 unit/mL (3 mL) subcutaneou s pen 18 units Subcutaneous Every morning For DIABETES 18 units 08/25 Inactiv e 2023 16518 83311 0 Every morning Subcut aneous False Lantus Solostar U-100 Insulin 100 unit/mL (3 mL) subcutaneou s pen 18 units Subcutaneous Every morning For DIABETES 18 units 2023 Active 2023 64575 51368 0 Every morning Subcut aneous False Linezolid 600 mg tablet [generic] 600 mg By Mouth Every 12 hours For MRSA INFECTION L BKA 600 mg 08/28 Inactiv e 2023 91187 54674 1 Every 12 hours By Mouth False [...] order For Diabetes 08/31 Inactiv e 2023 85613 45815 9 4 times a day Subcut aneous False Cefpodoxime 200 mg tablet [generic] 400 mg By Mouth Twice daily For MRSA INFECTION L BKA 400 mg 08/28 Inactiv e 2023 31977 62010 0 Twice daily By Mouth False Brimonidine 0.1 % eye drops [generic] 1 drop Both Eyes Twice daily For glaucoma 1 drop 2023 Active 2023 92068 33827 0 Twice daily Both Eyes False Metoprolol succinate ER 50 mg tablet,exte nded release 24 hr [generic] 50 mg By Mouth Once daily HOLD FOR SBP <100, or pulse <60 For HTN 50 mg 2023 Active 2023 21489 06749 1 Once daily By Mouth False Amlodipine 2.5 mg tablet [generic] 2.5 mg By Mouth Once daily For HTN 2.5 mg 2023 Active 2023 70167 50610 5 Once daily By Mouth False Docusate sodium 100 mg capsule [generic] 100mg By Mouth Twice daily as needed For constipation HOLD FOR LOOSE STOOLS 100mg 2023 Active 2023 69308 95193 1 Twice daily as needed By Mouth False Atorvastati n 40 mg tablet [generic] 40mg By Mouth Once daily For HDL 40mg 08/26 Inactiv e 2023 41253 44376 5 Once daily By Mouth False Tylenol 325 mg tablet 2 tabs By Mouth Every 4 hours as needed For Pain DO NOT EXCEED 3000 MG APAP/24 Hours 2 tabs 2023 Active 2023 62550 50279 0 Every 4 hours as needed By Mouth False Tylenol 325 mg tablet 2 tabs By Mouth Every 4 hours as needed For Fever >100 DO NOT EXCEED 3000 MG APAP/24 Hours 2 tabs 2023 Active 2023 00580 63817 0 Every 4 hours as needed By Mouth False Dulcolax (bisacodyl) 10 mg rectal suppository One Suppository per rectum PRN if Milk of Magnisia ineffective. Give on day 5 of no BM 1 sup 2023 Active 2023 21751 65060 1 Daily as needed Rectal False Fleet Enema 19 gram-7 gram/118 mL Administer per rectum PRN one time if dulcolax suppository not effective. Give on day 6 of no BM 1 2023 Active 2023 26519 52732 6 Daily as needed Rectal False Dextrose 50 % in water (D50W) intravenous solution [generic] Dextrose 50% evonne 20-50 ml (slow push) Intravenous if Glucagon not effective after 15 minutes. CALL 911 for ED Evaluation. 50% evonne 2023 Active 2023 34242 07699 9 Intrav enous False Glucagon (HCl) Emergency Kit 1 mg solution for injection Administer Glucagon 1 mg Intramuscular if 15 minutes after GLucose Gel is administered Glucose remains less than 70 1 mg 2023 Active 2023 24966 45772 2 Intram uscula r False Glucose Gel 40 % oral gel [Dextrose] PRN If resident is unable to swallow (with or without symptoms) and Glucose results less than 70 give GLucose 40% Gel 1 tube orally - Recheck Glucose 15 minutes after administratio n. 1 tube 2023 Active 2023 88721 36874 8 By Mouth False Milk of Magnesia 400 mg/5 mL oral suspension [Magnesium hydroxide] PRN 30ml By Mouth Daily as needed for constipation one time daily if no BM, on day 4 of no BM (PRN refer to instructions) For Constipation 30 mL 2023 Active 2023 89547 20887 6 Daily as needed By Mouth False Atorvastati n 40 mg tablet [generic] 08/26 Inactiv e 2023 19298 08317 5 Atorvastati n 40 mg tablet [generic] 40mg By Mouth Once daily For HDL 40mg 2023 Active 2023 22611 81438 5 Once daily By Mouth False Insulin aspart (U-100) 100 unit/mL (3 mL) subcutaneou s pen [generic] 15 units Subcutaneous 1 time For dm 15 units 08/26 Inactiv e 2023 83944 19770 5 1 time Subcut aneous False Humalog KwikPen (U-100) Insulin 100 unit/mL subcutaneou s 15 units Subcutaneous 1 time For dm 15 units 08/27 Inactiv e 2023 50065 73017 9 1 time Subcut aneous False Linezolid 600 mg tablet [generic] 600 mg By Mouth Every 12 hours For MRSA INFECTION L BKA 600 mg 09/06 Inactiv e 2023 19747 67726 1 Every 12 hours By Mouth False Cefpodoxime 200 mg tablet [generic] 400 mg By Mouth Twice daily For MRSA INFECTION L BKA 400 mg 08/31 Inactiv e 2023 50763 54648 0 Twice daily By Mouth False Senna 8.6 mg tablet 8.6 mg By Mouth Once daily For Constipation 8.6 mg 09/07 Inactiv e 2023 90039 60303 1 Once daily By Mouth False Humalog [...] abnormalities . Per Carb 2023 Active 2023 99081 39548 9 4 times a day Subcut aneous False Alendronate 35 mg tablet [generic] 08/31 Inactiv e 2023 52192 55477 5 Alendronate 35 mg tablet [generic] 35mg By Mouth Every week For Osteoporosis 35mg 2023 Active 2023 33087 35338 5 Every week By Mouth False ProSource 10 gram-100 kcal/30 mL oral liquid 30 ml By Mouth Once daily For wound healing 30 ml 2023 Active 2023 83504 35094 2 Once daily By Mouth False Clotrimazol e 1 % topical cream [generic] 1 applicaiton Topical Twice daily For tinea, apply to groin rash after cleansing and throughouly drying. Can discontinue order 3 days after rash resolves. 1 applica stacy 09/19 Active 2023 84886 15100 0 Twice daily Topica l False MAGIC MIX 1:1:1:1 : ZINC OXIDE EXTERNAL OINTMENT 40%; HYDROCOTISO NE EXTERNAL CREAM 1%; NYSTATIN EXTERNAL CREAM 733323G/GM; SILVADENE CREAM 1% Every shift Apply topically to MASD area on coccyx/buttoc ks each shift and as needed for incontinence care For MASD on coccyx layer 2023 Active 2023 Every shift Topica l False Senna 8.6 mg tablet 8.6 mg By Mouth Once daily For Constipation 8.6 mg 09/07 Inactiv e 2023 44282 48319 1 Once daily By Mouth False Senna 8.6 mg tablet 8.6 mg By Mouth Once daily As Needed For Constipation 8.6 mg 2023 Active 2023 54766 92453 1 Once daily By Mouth False Humalog KwikPen (U-100) Insulin 100 unit/mL subcutaneou s 08/31 Inactiv e 2023 94321 58767 9 MediHoney HCS 4 1/2in X 4 1/2in bandage Cleanse area with NSS, apply [facility] hydrocolloid dressing, non adherent dressing, kerlix secure with paper tape daily. For wound stage III 1 2023 Active 2023 68907 53371 1 Once daily Topica l False Problems Code Description Start Date End Date Status D64.9 Anemia, unspecified 08/25/2024 Activ e I25.10 Atherosclerotic hear t disease of [place] coronary artery without angina pectoris 08/25/2024 Active [...] weight Temperature SpO2 Blood Sugar Pulse Respirations 66416 8 67.00 mm[Hg] - Sitting 145.00 mm[Hg] - Sitting 98.50 Forehead Scan 96.00 % 81.00/ min 16.00/min 49551 2 67.00 mm[Hg] - Sitting 145.00 mm[Hg] - Sitting 98.50 Tympanic 81.00/ min 16.00/min 90496 5 56.00 mm[Hg] - Sitting 142.00 mm[Hg] - Sitting 136.40 NI 100.20 Tympanic 96.00 % 92.00/ min 18.00/min 90077 004 75393 6 19652 004 80551 4 143.00 mg/dL 84639 004 93589 0 97.80 Tympanic 95737 005 36621 7 60.00 mm[Hg] - Sitting 140.00 mm[Hg] - Sitting 98.00 Tympanic 84.00/ min 18.00/min 93022 005 86376 0 63.00 mm[Hg] - Sitting 141.00 mm[Hg] - Sitting 98.20 Tympanic 92.00 % 63.00/ min 16.00/min 67128 005 93425 8 69.00 mm[Hg] - Sitting 106.00 mm[Hg] - Sitting 97.20 Tympanic 47100 005 76508 7 69.00/ min 16.00/min 96562 005 25132 3 69.00 mm[Hg] - Sitting 106.00 mm[Hg] - Sitting 98.20 Tympanic 69.00/ min 16.00/min 08349 005 50597 1 367.00 mg/dL 64482 005 63103 2 97.20 Tympanic 22507 005 75898 4 97.20 Tympanic 37899 005 38153 0 69.00 mm[Hg] - Sitting 106.00 mm[Hg] - Sitting 69.00/ min 26760 005 14077 3 452.00 mg/dL 27808 005 73080 3 452.00 mg/dL 75474 005 88806 5 352.00 mg/dL 12184 005 92520 3 352.00 mg/dL 10871 005 65310 7 98.20 Tympanic 48899 005 21784 3 101.00 mg/dL 74529 005 77848 8 101.00 mg/dL 71987 006 68056 4 66.00 mm[Hg] - Sitting 107.00 mm[Hg] - Sitting 98.00 Tympanic 66.00/ min 18.00/min 92170 006 18697 0 62.00 mm[Hg] - Sitting 162.00 mm[Hg] - Sitting 98.20 Tympanic 96.00 % 60.00/ min 16.00/min 20990 006 20556 4 62.00 mm[Hg] - Sitting 162.00 mm[Hg] - Sitting 98.00 Tympanic 70.00/ min 18.00/min 60972 006 08959 8 62.00 mm[Hg] - Sitting 162.00 mm[Hg] - Sitting 98.20 Tympanic 70.00/ min 18.00/min 40089 006 66886 2 66.00 mm[Hg] - Sitting 132.00 mm[Hg] - Sitting 98.60 Tympanic 74.00/ min 16.00/min 12618 006 65188 5 159.00 mg/dL 90429 006 27519 1 159.00 mg/dL 29069 006 80827 8 98.00 Tympanic 15158 006 79610 2 62.00 mm[Hg] - Sitting 162.00 mm[Hg] - Sitting 70.00/ min 48083 006 75933 7 264.00 mg/dL 51207 006 41301 7 264.00 mg/dL 63522 006 73034 4 196.00 mg/dL 17724 006 78208 3 98.20 Tympanic 83974 006 69693 6 271.00 mg/dL 31229 007 21394 3 97.20 Tympanic 78654 007 21323 2 63.00 mm[Hg] - Sitting 132.00 mm[Hg] - Sitting 98.50 Tympanic 94.00 % 66.00/ min 16.00/min 01493 007 19992 5 188.00 mg/dL 60132 007 11757 2 188.00 mg/dL 36267 007 28094 2 188.00 mg/dL 08493 007 40743 7 97.20 Tympanic 12558 007 49782 6 97.20 Tympanic 28029 007 23984 5 67.00 mm[Hg] - Sitting 152.00 mm[Hg] - Sitting 68.00/ min 13976 007 34938 0 141.00 mg/dL 91899 007 46217 3 141.00 mg/dL 02194 007 47632 1 366.00 mg/dL 55227 007 56587 7 366.00 mg/dL 28961 007 39381 7 98.00 Tympanic 59253 007 66361 6 324.00 mg/dL 54761 007 88383 3 98.00 Tympanic 99326 007 74370 7 324.00 mg/dL 66224 008 41877 0 98.00 Tympanic 68290 008 87879 2 97.90 Tympanic 76585 008 21074 0 98.20 Tympanic 94561 008 63632 0 73.00 mm[Hg] - Sitting 156.00 mm[Hg] - Sitting 98.60 Tympanic 99.00 % 66.00/ min 20.00/min 89075 008 88293 5 137.00 mg/dL 25379 008 56722 7 137.00 mg/dL 87900 008 20132 2 97.90 Tympanic 20221 008 97344 1 137.00 mg/dL 35457 008 33574 8 97.90 Tympanic 24296 008 95477 5 67.00 mm[Hg] - Sitting 124.00 /min 15692 008 68899 6 212.00 mg/dL 24744 008 42867 6 212.00 mg/dL 11262 008 32090 9 317.00 mg/dL 41428 008 37951 4 317.00 mg/dL 41353 008 31013 8 252.00 mg/dL 56815 008 91134 0 98.70 Tympanic 43740 008 34957 7 252.00 mg/dL 21705 008 35252 3 98.70 Tympanic 94669 009 17965 9 98.70 Tympanic 82716 009 28843 3 98.20 Tympanic 68516 009 59864 5 98.40 Tympanic 59992 009 72713 5 57.00 mm[Hg] - Sitting 129.00 mm[Hg] - Sitting 98.30 Tympanic 97.00 % 65.00/ min 18.00/min 58202 009 10905 1 255.00 mg/dL 80136 009 00951 4 255.00 mg/dL 37367 009 21151 5 98.20 Tympanic 61011 009 00795 0 255.00 mg/dL 64130 009 36636 0 98.20 Tympanic 07086 009 27692 4 63.00 mm[Hg] - Lying Down 102.00 mm[Hg] - Lying Down 58.00/ min 17071 009 85026 0 167.00 mg/dL 51131 009 19611 1 167.00 mg/dL 09620 009 06008 2 164.00 mg/dL 85271 009 71832 1 164.00 mg/dL 30855 009 04227 5 208.00 mg/dL 92707 010 54092 3 98.40 Tympanic 09571 010 78229 5 98.40 Tympanic 80860 010 16473 7 66 [place] [address] 010 49865 4 60.00 mm[Hg] - Sitting 143.00 mm[Hg] - Sitting 98.90 Tympanic 98.00 % 67.00/ min 18.00/min 96386 010 45455 2 214.00 mg/dL 06726 010 27391 0 214.00 mg/dL 41111 010 49198 7 214.00 mg/dL 35348 010 28682 6 64.00 mm[Hg] - Sitting 110.00 mm[Hg] - Sitting 72.00/ min 18289 010 18513 7 98.40 Tympanic 46196 010 84738 1 212.00 mg/dL 54234 010 66576 2 212.00 mg/dL 71423 010 93511 1 115.00 mg/dL 27257 010 39711 0 115.00 mg/dL 38693 010 32001 4 98.50 Tympanic 68889 010 95293 4 150.00 mg/dL 79063 010 51891 0 150.00 mg/dL 31173 011 32640 9 98.60 Tympanic 02575 011 28199 1 67.00 mm[Hg] - Sitting 144.00 mm[Hg] - Sitting 98.20 Tympanic 98.00 % 61.00/ min 18.00/min 58301 011 35583 7 290.00 mg/dL 82053 011 80131 2 290.00 mg/dL 46529 011 96216 2 290.00 mg/dL 44579 011 40334 7 54.00 mm[Hg] - Sitting 136.00 mm[Hg] - Sitting 101.00 /min 91299 011 67566 7 98.60 Tympanic 07424 011 47224 5 240.00 mg/dL 05054 011 44070 1 240.00 mg/dL 02987 011 04524 1 156.00 mg/dL 03696 011 00466 9 156.00 mg/dL 85361 011 19911 0 97.80 Tympanic 72339 011 06472 8 343.00 mg/dL 54439 012 72709 9 97.90 Tympanic 61370 012 15973 2 466.00 mg/dL 45480 012 99541 1 466.00 mg/dL 85372 012 73666 3 466.00 mg/dL 18911 012 02828 8 97.90 Tympanic 78450 012 48341 8 56.00 mm[Hg] - Sitting 96.00 mm[Hg] - Sitting 61.00/ min 42138 012 36216 7 350.00 mg/dL 85153 012 83594 5 350.00 mg/dL 72354 012 22097 6 111.00 mg/dL 68904 012 31274 0 111.00 mg/dL 86926 012 37274 5 98.40 Tympanic 25749 012 74830 6 114.00 mg/dL 38809 013 17652 4 74.00 mm[Hg] - Sitting 112.00 mm[Hg] - Sitting 98.40 Tympanic 70.00/ min 18.00/min 86909 013 38017 8 244.00 mg/dL 69947 013 52431 7 244.00 mg/dL 57131 013 20525 1 244.00 mg/dL 92089 013 71926 1 98.20 Tympanic 19859 013 34688 7 72.00 mm[Hg] - Sitting 119.00 mm[Hg] - Sitting 76.00/ min 14569 013 06153 7 253.00 mg/dL 90613 013 89310 4 253.00 mg/dL 32310 013 91571 9 156.00 mg/dL 28671 013 37357 5 156.00 mg/dL 77939 013 19756 4 97.90 Tympanic 39943 013 87635 5 189.00 mg/dL 41334 014 92018 9 98.10 Tympanic 69695 014 68696 0 61.00 mm[Hg] - Sitting 139.00 mm[Hg] - Sitting 98.20 Forehead Scan 99.00 % 66.00/ min 18.00/min 72162 014 40294 3 169.00 mg/dL 78549 014 97537 3 98.10 Tympanic 08240 014 53780 3 75.00 mm[Hg] - Sitting 121.00 mm[Hg] - Sitting 71.00/ min 64796 014 26118 9 221.00 mg/dL 86242 014 98623 9 62.00 mg/dL 03323 014 87521 5 62.00 mg/dL 53365 014 95923 8 156.00 mg/dL 80451 014 82306 6 98.10 Tympanic 09208 014 01297 7 156.00 mg/dL 92422 015 00579 4 23432 015 74535 7 62.00 mm[Hg] - Sitting 142.00 mm[Hg] - Sitting 98.20 Tympanic 99.00 % 67.00/ min 18.00/min 59088 015 15222 9 120.00 mg/dL 82539 015 50661 7 98.00 Tympanic 11215 015 01767 2 82.00 mm[Hg] - Sitting 119.00 /min 10808 015 55744 9 110.00 mg/dL 21320 015 09426 6 104.00 mg/dL 68870 015 66178 0 100.00 mg/dL 69289 015 15708 2 98.10 Tympanic 06092 015 72185 6 100.00 mg/dL 51911 016 10911 2 67.00 mm[Hg] - Sitting 147.00 mm[Hg] - Sitting 99.00 Tympanic 99.00 % 78.00/ min 20.00/min 49520 016 65949 5 158.00 mg/dL 99740 016 15532 1 158.00 mg/dL 63476 016 27128 2 158.00 mg/dL 36403 016 83730 0 66.00 mm[Hg] - Sitting 121.00 mm[Hg] - Sitting 74.00/ min 90441 016 02383 1 97.00 mg/dL 27607 016 98806 5 97.00 mg/dL 16029 016 25831 4 78.00 mg/dL 38921 016 20190 6 78.00 mg/dL 73144 016 94637 5 248.00 mg/dL 34775 016 98030 8 248.00 mg/dL 95091 017 37777 4 267.00 mg/dL 12014 017 96271 6 73.00 mm[Hg] - Sitting 109.00 mm[Hg] - Sitting 70.00/ min 88249 017 36552 1 184.00 mg/dL 00366 017 86765 5 184.00 mg/dL Immunizations Vaccine Date Status COVID-19 09/20/2023 Completed Other 10/08/2023 Completed Shingles 05/27/2011 Completed Tetanus 04/13/2022 Completed TDaP 04/13/2022 Completed Shingles 2 10/05/2018 Completed
--- OUTSIDE RECORDS SUMMARY | 2024-10-03 11:11 | External Medical Summary | Continuity Of Care Document ---
Author Name Unknown Address [address] [address] Organization [facility] () Care Team Providers [employer]imator Name Role Phone DO Machado Amy Primary Care Provider [phone] Allergies Allergy Reaction Start Date End Date [...] 3 0.1 mL 08/29 Inactiv e 2023 01187 21514 0 1 time Intrad ermal False Tubersol 5 tub. unit/0.1 mL intradermal injection solution [Tuberculin PPD] 0.1mL Intradermal 1 time For PPD 2nd Step Give 2nd Step PPD Day 1 and Read results Day 3 (schedule 7 days after 1st READ) 0.1mL 09/08 Active 2023 91327 29179 0 1 time Intrad ermal False Humalog [...] order For Diabetes 08/25 Inactiv e 2023 88425 94664 9 4 times a day Subcut aneous False Aspirin 325 mg tablet [generic] 325 By Mouth Twice daily For Anticoagulati on 325 09/25 Active 2023 16240 99386 1 Twice daily By Mouth False Ferrous sulfate 325 mg (65 mg iron) tablet [generic] 325 By Mouth Once daily For anemia 325 2023 Active 2023 37787 50845 5 Once daily By Mouth False Linezolid 600 mg tablet [generic] 600 mg By Mouth Every 12 hours For MRSA INFECTION L BKA 600 mg 08/25 Inactiv e 2023 36239 59975 1 Every 12 hours By Mouth False Cefpodoxime 200 mg tablet [generic] 400 mg By Mouth Twice daily For MRSA INFECTION L BKA 400 mg 08/25 Inactiv e 2023 18626 20407 0 Twice daily By Mouth False Coenzyme Q10 100 mg tablet [generic] 100 mg By Mouth Once daily For SUPP 100 mg 2023 Active 2023 95038 55677 0 Once daily By Mouth False Levothyroxi ne 50 mcg tablet [generic] 50mcg By Mouth Once daily For hypothyroidis m 50mcg 2023 Active 2023 99238 84804 0 Once daily By Mouth False One A Day Men Complete 240 mcg-25 mcg-300 mcg tablet 1 tab By Mouth Once daily For supplement 1 tab 2023 Active 2023 94019 16891 1 Once daily By Mouth False Cholecalcif adalberto (vitamin D3) 50 mcg (2,000 unit) tablet [generic] 1 TAB By Mouth Once daily For SUPP 1 TAB 2023 Active 2023 78372 95645 1 Once daily By Mouth False Cetirizine 10 mg tablet [generic] 1 TAB By Mouth At bedtime For Allergies 1 TAB 2023 Active 2023 72801 46266 0 At bedtime By Mouth False Timolol maleate 0.25 % eye drops [generic] 1 drop Both Eyes Twice daily For glaucoma 1 drop 2023 0000 /0000 Active 2023 93975 43825 5 Twice daily Both Eyes False Alendronate 35 mg tablet [generic] 35mg By Mouth Every week For SIADH 35mg 08/31 Inactiv e 2023 65697 89461 5 Every week By Mouth False Lantus Solostar U-100 Insulin 100 unit/mL (3 mL) subcutaneou s pen 18 units Subcutaneous Every morning For DIABETES 18 units 08/25 Inactiv e 2023 50929 68963 0 Every morning Subcut aneous False Lantus Solostar U-100 Insulin 100 unit/mL (3 mL) subcutaneou s pen 18 units Subcutaneous Every morning For DIABETES 18 units 2023 Active 2023 45615 82453 0 Every morning Subcut aneous False Linezolid 600 mg tablet [generic] 600 mg By Mouth Every 12 hours For MRSA INFECTION L BKA 600 mg 08/28 Inactiv e 2023 49302 03768 1 Every 12 hours By Mouth False [...] order For Diabetes 08/31 Inactiv e 2023 92970 47119 9 4 times a day Subcut aneous False Cefpodoxime 200 mg tablet [generic] 400 mg By Mouth Twice daily For MRSA INFECTION L BKA 400 mg 08/28 Inactiv e 2023 87864 75481 0 Twice daily By Mouth False Brimonidine 0.1 % eye drops [generic] 1 drop Both Eyes Twice daily For glaucoma 1 drop 2023 Active 2023 67388 70508 0 Twice daily Both Eyes False Metoprolol succinate ER 50 mg tablet,exte nded release 24 hr [generic] 50 mg By Mouth Once daily HOLD FOR SBP <100, or pulse <60 For HTN 50 mg 2023 Active 2023 93256 03323 1 Once daily By Mouth False Amlodipine 2.5 mg tablet [generic] 2.5 mg By Mouth Once daily For HTN 2.5 mg 2023 Active 2023 19705 92253 5 Once daily By Mouth False Docusate sodium 100 mg capsule [generic] 100mg By Mouth Twice daily as needed For constipation HOLD FOR LOOSE STOOLS 100mg 2023 Active 2023 13938 95322 1 Twice daily as needed By Mouth False Atorvastati n 40 mg tablet [generic] 40mg By Mouth Once daily For HDL 40mg 08/26 Inactiv e 2023 76425 08596 5 Once daily By Mouth False Tylenol 325 mg tablet 2 tabs By Mouth Every 4 hours as needed For Pain DO NOT EXCEED 3000 MG APAP/24 Hours 2 tabs 2023 Active 2023 95430 45827 0 Every 4 hours as needed By Mouth False Tylenol 325 mg tablet 2 tabs By Mouth Every 4 hours as needed For Fever >100 DO NOT EXCEED 3000 MG APAP/24 Hours 2 tabs 2023 Active 2023 32564 39811 0 Every 4 hours as needed By Mouth False Dulcolax (bisacodyl) 10 mg rectal suppository One Suppository per rectum PRN if Milk of Magnisia ineffective. Give on day 5 of no BM 1 sup 2023 Active 2023 96046 13958 1 Daily as needed Rectal False Fleet Enema 19 gram-7 gram/118 mL Administer per rectum PRN one time if dulcolax suppository not effective. Give on day 6 of no BM 1 2023 Active 2023 37367 56514 6 Daily as needed Rectal False Dextrose 50 % in water (D50W) intravenous solution [generic] Dextrose 50% evonne 20-50 ml (slow push) Intravenous if Glucagon not effective after 15 minutes. CALL 911 for ED Evaluation. 50% evonne 2023 Active 2023 33130 48683 9 Intrav enous False Glucagon (HCl) Emergency Kit 1 mg solution for injection Administer Glucagon 1 mg Intramuscular if 15 minutes after GLucose Gel is administered Glucose remains less than 70 1 mg 2023 Active 2023 84849 03733 2 Intram uscula r False Glucose Gel 40 % oral gel [Dextrose] PRN If resident is unable to swallow (with or without symptoms) and Glucose results less than 70 give GLucose 40% Gel 1 tube orally - Recheck Glucose 15 minutes after administratio n. 1 tube 2023 Active 2023 19233 72762 8 By Mouth False Milk of Magnesia 400 mg/5 mL oral suspension [Magnesium hydroxide] PRN 30ml By Mouth Daily as needed for constipation one time daily if no BM, on day 4 of no BM (PRN refer to instructions) For Constipation 30 mL 2023 Active 2023 49532 38969 6 Daily as needed By Mouth False Atorvastati n 40 mg tablet [generic] 08/26 Inactiv e 2023 86146 77164 5 Atorvastati n 40 mg tablet [generic] 40mg By Mouth Once daily For HDL 40mg 2023 Active 2023 33283 14622 5 Once daily By Mouth False Insulin aspart (U-100) 100 unit/mL (3 mL) subcutaneou s pen [generic] 15 units Subcutaneous 1 time For dm 15 units 08/26 Inactiv e 2023 40416 28275 5 1 time Subcut aneous False Humalog KwikPen (U-100) Insulin 100 unit/mL subcutaneou s 15 units Subcutaneous 1 time For dm 15 units 08/27 Inactiv e 2023 66093 09058 9 1 time Subcut aneous False Linezolid 600 mg tablet [generic] 600 mg By Mouth Every 12 hours For MRSA INFECTION L BKA 600 mg 09/06 Inactiv e 2023 70481 32862 1 Every 12 hours By Mouth False Cefpodoxime 200 mg tablet [generic] 400 mg By Mouth Twice daily For MRSA INFECTION L BKA 400 mg 08/31 Inactiv e 2023 73768 20720 0 Twice daily By Mouth False Senna 8.6 mg tablet 8.6 mg By Mouth Once daily For Constipation 8.6 mg 2023 Active 2023 77561 44542 1 Once daily By Mouth False Humalog [...] abnormalities . Per Carb 2023 Active 2023 47996 52315 9 4 times a day Subcut aneous False Alendronate 35 mg tablet [generic] 08/31 Inactiv e 2023 75737 51456 5 Alendronate 35 mg tablet [generic] 35mg By Mouth Every week For Osteoporosis 35mg 2023 Active 2023 09586 88629 5 Every week By Mouth False ProSource 10 gram-100 kcal/30 mL oral liquid 30 ml By Mouth Once daily For wound healing 30 ml 2023 Active 2023 00545 45119 2 Once daily By Mouth False Problems [...] weight Temperature SpO2 Blood Sugar Pulse Respirations 19905 004 35924 8 67.00 mm[Hg] - Sitting 145.00 mm[Hg] - Sitting 98.50 Forehead Scan 96.00 % 81.00/ min 16.00/min 88392 004 32217 2 67.00 mm[Hg] - Sitting 145.00 mm[Hg] - Sitting 98.50 Tympanic 81.00/ min 16.00/min 52135 004 14689 5 56.00 mm[Hg] - Sitting 142.00 mm[Hg] - Sitting 136.40 NI 100.20 Tympanic 96.00 % 92.00/ min 18.00/min 29404 004 36740 6 40569 004 63711 4 143.00 mg/dL 33802 004 20368 0 97.80 Tympanic 59149 005 64336 7 60.00 mm[Hg] - Sitting 140.00 mm[Hg] - Sitting 98.00 Tympanic 84.00/ min 18.00/min 06742 005 13477 0 63.00 mm[Hg] - Sitting 141.00 mm[Hg] - Sitting 98.20 Tympanic 92.00 % 63.00/ min 16.00/min 45559 005 00209 8 69.00 mm[Hg] - Sitting 106.00 mm[Hg] - Sitting 97.20 Tympanic 68100 005 53263 7 69.00/ min 16.00/min 94444 005 18401 3 69.00 mm[Hg] - Sitting 106.00 mm[Hg] - Sitting 98.20 Tympanic 69.00/ min 16.00/min 16610 005 58744 1 367.00 mg/dL 61896 005 93293 2 97.20 Tympanic 83718 005 91537 4 97.20 Tympanic 47538 005 99789 0 69.00 mm[Hg] - Sitting 106.00 mm[Hg] - Sitting 69.00/ min 43638 005 63095 3 452.00 mg/dL 68522 005 23204 3 452.00 mg/dL 21748 005 40912 5 352.00 mg/dL 49711 005 85546 3 352.00 mg/dL 57335 005 19320 7 98.20 Tympanic 78434 005 91258 3 101.00 mg/dL 31028 005 8 101.00 mg/dL 11191 006 25387 4 66.00 mm[Hg] - Sitting 107.00 mm[Hg] - Sitting 98.00 Tympanic 66.00/ min 18.00/min 08002 006 54774 0 62.00 mm[Hg] - Sitting 162.00 mm[Hg] - Sitting 98.20 Tympanic 96.00 % 60.00/ min 16.00/min 19605 006 87595 4 62.00 mm[Hg] - Sitting 162.00 mm[Hg] - Sitting 98.00 Tympanic 70.00/ min 18.00/min 73486 006 54961 8 62.00 mm[Hg] - Sitting 162.00 mm[Hg] - Sitting 98.20 Tympanic 70.00/ min 18.00/min 09120 006 93890 2 66.00 mm[Hg] - Sitting 132.00 mm[Hg] - Sitting 98.60 Tympanic 74.00/ min 16.00/min 19676 006 78896 5 159.00 mg/dL 19195 006 00717 1 159.00 mg/dL 69564 006 71754 8 98.00 Tympanic 16877 006 64695 2 62.00 mm[Hg] - Sitting 162.00 mm[Hg] - Sitting 70.00/ min 47664 006 36589 7 264.00 mg/dL 39377 006 38336 7 264.00 mg/dL 57762 006 18042 4 196.00 mg/dL 55775 006 61930 3 98.20 Tympanic 40027 006 07452 6 271.00 mg/dL 40214 007 37160 3 97.20 Tympanic 70715 007 16806 2 63.00 mm[Hg] - Sitting 132.00 mm[Hg] - Sitting 98.50 Tympanic 94.00 % 66.00/ min 16.00/min 55270 007 28091 5 188.00 mg/dL 03612 007 32455 2 188.00 mg/dL 59468 007 64829 2 188.00 mg/dL 70186 007 23879 7 97.20 Tympanic 28281 007 04345 6 97.20 Tympanic 04144 007 20533 5 67.00 mm[Hg] - Sitting 152.00 mm[Hg] - Sitting 68.00/ min 88613 007 25520 0 141.00 mg/dL 64407 007 28344 3 141.00 mg/dL 98396 007 84190 1 366.00 mg/dL 19227 007 45157 7 366.00 mg/dL 28137 007 32133 7 98.00 Tympanic 78193 007 00394 6 324.00 mg/dL 93766 007 99655 3 98.00 Tympanic 70919 007 24443 7 324.00 mg/dL 21105 008 23581 0 98.00 Tympanic 42413 008 13784 2 97.90 Tympanic 31076 008 89466 0 98.20 Tympanic 14678 008 40356 0 73.00 mm[Hg] - Sitting 156.00 mm[Hg] - Sitting 98.60 Tympanic 99.00 % 66.00/ min 20.00/min 01899 008 02588 5 137.00 mg/dL 12538 008 58506 7 137.00 mg/dL 91709 008 68927 2 97.90 Tympanic 93873 008 40226 1 137.00 mg/dL 96319 008 96680 8 97.90 Tympanic 77266 008 61230 5 67.00 mm[Hg] - Sitting 124.00 /min 57056 008 30238 6 212.00 mg/dL 47527 008 82115 6 212.00 mg/dL 46761 008 15422 9 317.00 mg/dL 18442 008 70825 4 317.00 mg/dL 78482 008 05075 8 252.00 mg/dL 70552 008 61246 0 98.70 Tympanic 80200 008 57778 7 252.00 mg/dL 28635 008 29138 3 98.70 Tympanic 17273 009 66571 9 98.70 Tympanic 87961 009 09258 3 98.20 Tympanic 45608 009 08816 5 98.40 Tympanic 47571 009 43241 5 57.00 mm[Hg] - Sitting 129.00 mm[Hg] - Sitting 98.30 Tympanic 97.00 % 65.00/ min 18.00/min 71873 009 09050 1 255.00 mg/dL 03459 009 09307 4 255.00 mg/dL 85682 009 32443 5 98.20 Tympanic 24007 009 11509 0 255.00 mg/dL 21047 009 51636 0 98.20 Tympanic 39498 009 96121 4 63.00 mm[Hg] - Lying Down 102.00 mm[Hg] - Lying Down 58.00/ min 11665 009 59438 0 167.00 mg/dL 38176 009 93945 1 167.00 mg/dL 63585 009 58861 2 164.00 mg/dL 94064 009 87969 1 164.00 mg/dL 41355 009 23930 5 208.00 mg/dL 93586 010 80950 3 98.40 Tympanic 24042 010 34085 5 98.40 Tympanic 09941 010 85444 7 66 [place] [address] 010 52245 4 60.00 mm[Hg] - Sitting 143.00 mm[Hg] - Sitting 98.90 Tympanic 98.00 % 67.00/ min 18.00/min 78826 010 68608 2 214.00 mg/dL 38547 010 35554 0 214.00 mg/dL 39400 010 77492 7 214.00 mg/dL 45862 010 72146 6 64.00 mm[Hg] - Sitting 110.00 mm[Hg] - Sitting 72.00/ min 04666 010 28269 7 98.40 Tympanic 16270 010 70616 1 212.00 mg/dL 61309 010 80029 2 212.00 mg/dL 38005 010 19270 1 115.00 mg/dL 37952 010 07965 0 115.00 mg/dL 80906 010 88120 4 98.50 Tympanic 31642 010 19109 4 150.00 mg/dL 73828 010 37666 0 150.00 mg/dL 05473 011 96113 9 98.60 Tympanic 70093 011 68121 1 67.00 mm[Hg] - Sitting 144.00 mm[Hg] - Sitting 98.20 Tympanic 98.00 % 61.00/ min 18.00/min 07394 011 96561 7 290.00 mg/dL 63449 011 93593 2 290.00 mg/dL 55506 011 54218 2 290.00 mg/dL 67379 011 17119 7 54.00 mm[Hg] - Sitting 136.00 mm[Hg] - Sitting 101.00 /min 44729 011 22267 7 98.60 Tympanic 55661 011 93430 5 240.00 mg/dL 40187 011 65152 1 240.00 mg/dL 26326 011 06758 1 156.00 mg/dL 60997 011 68853 9 156.00 mg/dL 90440 011 63126 0 97.80 Tympanic 86609 011 90777 8 343.00 mg/dL 69395 012 02599 9 97.90 Tympanic 90615 012 13858 2 466.00 mg/dL 15556 012 44843 1 466.00 mg/dL 04546 012 36629 3 466.00 mg/dL 28656 012 16983 8 97.90 Tympanic 67307 012 06185 8 56.00 mm[Hg] - Sitting 96.00 mm[Hg] - Sitting 61.00/ min 77989 012 95242 7 350.00 mg/dL 56364 012 06179 5 350.00 mg/dL 15465 012 47887 6 111.00 mg/dL 27616 012 47205 0 111.00 mg/dL 35836 012 83790 5 98.40 Tympanic 52727 012 44721 6 114.00 mg/dL 62199 013 33084 4 74.00 mm[Hg] - Sitting 112.00 mm[Hg] - Sitting 98.40 Tympanic 70.00/ min 18.00/min 69766 013 18398 8 244.00 mg/dL 80363 013 65456 7 244.00 mg/dL 88708 013 28888 1 244.00 mg/dL 40334 013 28027 1 98.20 Tympanic 35970 013 40519 7 72.00 mm[Hg] - Sitting 119.00 mm[Hg] - Sitting 76.00/ min 02727 013 82485 7 253.00 mg/dL 44325 013 18469 4 253.00 mg/dL 81032 013 40833 9 156.00 mg/dL 97767 013 41504 5 156.00 mg/dL 08777 013 75594 4 97.90 Tympanic 01663 013 70455 5 189.00 mg/dL 94695 014 61302 9 98.10 Tympanic 03008 014 28944 0 61.00 mm[Hg] - Sitting 139.00 mm[Hg] - Sitting 98.20 Forehead Scan 99.00 % 66.00/ min 18.00/min 64738 014 26472 3 169.00 mg/dL 28615 014 28521 3 98.10 Tympanic 57841 014 80406 3 75.00 mm[Hg] - Sitting 121.00 mm[Hg] - Sitting 71.00/ min 13782 014 31419 9 221.00 mg/dL 01749 014 30010 9 62.00 mg/dL 04154 014 15769 5 62.00 mg/dL 15743 014 49197 8 156.00 mg/dL 41411 014 43407 6 98.10 Tympanic 02856 014 65935 7 156.00 mg/dL 80781 015 18370 4 69032 015 24263 7 62.00 mm[Hg] - Sitting 142.00 mm[Hg] - Sitting 98.20 Tympanic 99.00 % 67.00/ min 18.00/min 29266 015 94651 9 120.00 mg/dL 83384 015 81332 7 98.00 Tympanic 38579 015 12825 2 82.00 mm[Hg] - Sitting 119.00 /min 16124 015 01444 9 110.00 mg/dL 01312 015 85150 6 104.00 mg/dL 92209 015 71969 0 100.00 mg/dL 73890 015 13319 2 98.10 Tympanic 41700 015 89005 6 100.00 mg/dL 14141 016 60225 2 67.00 mm[Hg] - Sitting 147.00 mm[Hg] - Sitting 99.00 Tympanic 99.00 % 78.00/ min 20.00/min 30242 016 63735 5 158.00 mg/dL 69921 016 25916 1 158.00 mg/dL 09942 016 20703 2 158.00 mg/dL 91287 016 89775 0 66.00 mm[Hg] - Sitting 121.00 mm[Hg] - Sitting 74.00/ min 15730 016 00277 1 97.00 mg/dL 95316 016 69446 5 97.00 mg/dL 01599 016 18666 4 78.00 mg/dL 17011 016 87557 6 78.00 mg/dL 15797 016 11640 5 248.00 mg/dL 92003 016 86372 8 248.00 mg/dL 88411 017 38367 4 267.00 mg/dL 69502 017 24479 6 73.00 mm[Hg] - Sitting 109.00 mm[Hg] - Sitting 70.00/ min 79686 017 78128 1 184.00 mg/dL 68508 017 55527 5 184.00 mg/dL Immunizations Vaccine Date Status COVID-19 09/20/2023 Completed Other 10/08/2023 Completed Shingles 05/27/2011 Completed Tetanus 04/13/2022 Completed TDaP 04/13/2022 Completed Shingles 2 10/05/2018 Completed
--- OUTSIDE RECORDS SUMMARY | 2024-10-03 11:12 | External Medical Summary | Continuity Of Care Document ---
Author Name Unknown Address [address] [facility] () Care Team Providers Care Active Directory Engineer Name Role Phone DO Machado Amy Primary Care Provider [phone] Allergies Allergy Reaction Start Date End Date [...] 3 0.1 mL 08/29 Inactiv e 2023 91054 54761 0 1 time Intrad ermal False Tubersol 5 tub. unit/0.1 mL intradermal injection solution [Tuberculin PPD] 0.1mL Intradermal 1 time For PPD 2nd Step Give 2nd Step PPD Day 1 and Read results Day 3 (schedule 7 days after 1st READ) 0.1mL 09/08 Active 2023 56078 27792 0 1 time Intrad ermal False Humalog [...] order For Diabetes 08/25 Inactiv e 2023 08406 58323 9 4 times a day Subcut aneous False Aspirin 325 mg tablet [generic] 325 By Mouth Twice daily For Anticoagulati on 325 09/25 Active 2023 18039 72017 1 Twice daily By Mouth False Ferrous sulfate 325 mg (65 mg iron) tablet [generic] 325 By Mouth Once daily For anemia 325 2023 Active 2023 67029 46521 5 Once daily By Mouth False Linezolid 600 mg tablet [generic] 600 mg By Mouth Every 12 hours For MRSA INFECTION L BKA 600 mg 08/25 Inactiv e 2023 29656 84827 1 Every 12 hours By Mouth False Cefpodoxime 200 mg tablet [generic] 400 mg By Mouth Twice daily For MRSA INFECTION L BKA 400 mg 08/25 Inactiv e 2023 13816 57435 0 Twice daily By Mouth False Coenzyme Q10 100 mg tablet [generic] 100 mg By Mouth Once daily For SUPP 100 mg 2023 Active 2023 82115 12292 0 Once daily By Mouth False Levothyroxi ne 50 mcg tablet [generic] 50mcg By Mouth Once daily For hypothyroidis m 50mcg 2023 Active 2023 46185 69424 0 Once daily By Mouth False One A Day Men Complete 240 mcg-25 mcg-300 mcg tablet 1 tab By Mouth Once daily For supplement 1 tab 2023 Active 2023 44611 58707 1 Once daily By Mouth False Cholecalcif adalberto (vitamin D3) 50 mcg (2,000 unit) tablet [generic] 1 TAB By Mouth Once daily For SUPP 1 TAB 2023 Active 2023 44667 65058 1 Once daily By Mouth False Cetirizine 10 mg tablet [generic] 1 TAB By Mouth At bedtime For Allergies 1 TAB 2023 Active 2023 31051 89052 0 At bedtime By Mouth False Timolol maleate 0.25 % eye drops [generic] 1 drop Both Eyes Twice daily For glaucoma 1 drop 2023 0000 /0000 Active 2023 34790 14709 5 Twice daily Both Eyes False Alendronate 35 mg tablet [generic] 35mg By Mouth Every week For SIADH 35mg 08/31 Inactiv e 2023 25675 65490 5 Every week By Mouth False Lantus Solostar U-100 Insulin 100 unit/mL (3 mL) subcutaneou s pen 18 units Subcutaneous Every morning For DIABETES 18 units 08/25 Inactiv e 2023 51793 32453 0 Every morning Subcut aneous False Lantus Solostar U-100 Insulin 100 unit/mL (3 mL) subcutaneou s pen 18 units Subcutaneous Every morning For DIABETES 18 units 2023 Active 2023 95034 55298 0 Every morning Subcut aneous False Linezolid 600 mg tablet [generic] 600 mg By Mouth Every 12 hours For MRSA INFECTION L BKA 600 mg 08/28 Inactiv e 2023 44002 51085 1 Every 12 hours By Mouth False [...] order For Diabetes 08/31 Inactiv e 2023 53799 68928 9 4 times a day Subcut aneous False Cefpodoxime 200 mg tablet [generic] 400 mg By Mouth Twice daily For MRSA INFECTION L BKA 400 mg 08/28 Inactiv e 2023 45774 96594 0 Twice daily By Mouth False Brimonidine 0.1 % eye drops [generic] 1 drop Both Eyes Twice daily For glaucoma 1 drop 2023 Active 2023 03156 62236 0 Twice daily Both Eyes False Metoprolol succinate ER 50 mg tablet,exte nded release 24 hr [generic] 50 mg By Mouth Once daily HOLD FOR SBP <100, or pulse <60 For HTN 50 mg 2023 Active 2023 91045 35114 1 Once daily By Mouth False Amlodipine 2.5 mg tablet [generic] 2.5 mg By Mouth Once daily For HTN 2.5 mg 2023 Active 2023 53344 37806 5 Once daily By Mouth False Docusate sodium 100 mg capsule [generic] 100mg By Mouth Twice daily as needed For constipation HOLD FOR LOOSE STOOLS 100mg 2023 Active 2023 41358 76324 1 Twice daily as needed By Mouth False Atorvastati n 40 mg tablet [generic] 40mg By Mouth Once daily For HDL 40mg 08/26 Inactiv e 2023 21949 58186 5 Once daily By Mouth False Tylenol 325 mg tablet 2 tabs By Mouth Every 4 hours as needed For Pain DO NOT EXCEED 3000 MG APAP/24 Hours 2 tabs 2023 Active 2023 53713 51947 0 Every 4 hours as needed By Mouth False Tylenol 325 mg tablet 2 tabs By Mouth Every 4 hours as needed For Fever >100 DO NOT EXCEED 3000 MG APAP/24 Hours 2 tabs 2023 Active 2023 75401 74334 0 Every 4 hours as needed By Mouth False Dulcolax (bisacodyl) 10 mg rectal suppository One Suppository per rectum PRN if Milk of Magnisia ineffective. Give on day 5 of no BM 1 sup 2023 Active 2023 65251 98384 1 Daily as needed Rectal False Fleet Enema 19 gram-7 gram/118 mL Administer per rectum PRN one time if dulcolax suppository not effective. Give on day 6 of no BM 1 2023 Active 2023 80880 58780 6 Daily as needed Rectal False Dextrose 50 % in water (D50W) intravenous solution [generic] Dextrose 50% evonne 20-50 ml (slow push) Intravenous if Glucagon not effective after 15 minutes. CALL 911 for ED Evaluation. 50% evonne 2023 Active 2023 47197 58277 9 Intrav enous False Glucagon (HCl) Emergency Kit 1 mg solution for injection Administer Glucagon 1 mg Intramuscular if 15 minutes after GLucose Gel is administered Glucose remains less than 70 1 mg 2023 Active 2023 17603 32200 2 Intram uscula r False Glucose Gel 40 % oral gel [Dextrose] PRN If resident is unable to swallow (with or without symptoms) and Glucose results less than 70 give GLucose 40% Gel 1 tube orally - Recheck Glucose 15 minutes after administratio n. 1 tube 2023 Active 2023 86948 80878 8 By Mouth False Milk of Magnesia 400 mg/5 mL oral suspension [Magnesium hydroxide] PRN 30ml By Mouth Daily as needed for constipation one time daily if no BM, on day 4 of no BM (PRN refer to instructions) For Constipation 30 mL 2023 Active 2023 50022 51846 6 Daily as needed By Mouth False Atorvastati n 40 mg tablet [generic] 08/26 Inactiv e 2023 69368 00847 5 Atorvastati n 40 mg tablet [generic] 40mg By Mouth Once daily For HDL 40mg 2023 Active 2023 96637 61095 5 Once daily By Mouth False Insulin aspart (U-100) 100 unit/mL (3 mL) subcutaneou s pen [generic] 15 units Subcutaneous 1 time For dm 15 units 08/26 Inactiv e 2023 10537 96393 5 1 time Subcut aneous False Humalog KwikPen (U-100) Insulin 100 unit/mL subcutaneou s 15 units Subcutaneous 1 time For dm 15 units 08/27 Inactiv e 2023 20680 68698 9 1 time Subcut aneous False Linezolid 600 mg tablet [generic] 600 mg By Mouth Every 12 hours For MRSA INFECTION L BKA 600 mg 09/06 Inactiv e 2023 23219 76134 1 Every 12 hours By Mouth False Cefpodoxime 200 mg tablet [generic] 400 mg By Mouth Twice daily For MRSA INFECTION L BKA 400 mg 08/31 Inactiv e 2023 76889 37866 0 Twice daily By Mouth False Senna 8.6 mg tablet 8.6 mg By Mouth Once daily For Constipation 8.6 mg 2023 Active 2023 81999 86646 1 Once daily By Mouth False Humalog [...] abnormalities . Per Carb 2023 Active 2023 77267 46225 9 4 times a day Subcut aneous False Alendronate 35 mg tablet [generic] 08/31 Inactiv e 2023 03113 15154 5 Alendronate 35 mg tablet [generic] 35mg By Mouth Every week For Osteoporosis 35mg 2023 Active 2023 65557 54963 5 Every week By Mouth False ProSource 10 gram-100 kcal/30 mL oral liquid 30 ml By Mouth Once daily For wound healing 30 ml 2023 Active 2023 95339 23666 2 Once daily By Mouth False Clotrimazol e 1 % topical cream [generic] 1 applicaiton Topical Twice daily For tinea, apply to groin rash after cleansing and throughouly drying. Can discontinue order 3 days after rash resolves. 1 applica stacy 09/19 Active 2023 20850 94334 0 Twice daily Topica l False MAGIC MIX 1:1:1:1 : ZINC OXIDE EXTERNAL OINTMENT 40%; HYDROCOTISO NE EXTERNAL CREAM 1%; NYSTATIN EXTERNAL CREAM [id number]/GM; SILVADENE CREAM 1% Every shift Apply topically to MASD area on coccyx/buttoc ks each shift and as needed for incontinence care For MASD on coccyx layer 2023 Active 2023 Every shift Topica l False Humalog KwikPen (U-100) Insulin 100 unit/mL subcutaneou s 08/31 Inactiv e 2023 86247 61704 9 MediHoney HCS 4 1/2in X 4 1/2in bandage Cleanse area with NSS, apply one medihoney hydrocolloid dressing, non adherent dressing, kerlix secure with paper tape daily. For wound stage III 1 2023 Active 2023 74826 43957 1 Once daily Topica l False Problems [...] weight Temperature SpO2 Blood Sugar Pulse Respirations 26392 8 67.00 mm[Hg] - Sitting 145.00 mm[Hg] - Sitting 98.50 Forehead Scan 96.00 % 81.00/ min 16.00/min 71659 004 82068 2 67.00 mm[Hg] - Sitting 145.00 mm[Hg] - Sitting 98.50 Tympanic 81.00/ min 16.00/min 96170 004 31767 5 56.00 mm[Hg] - Sitting 142.00 mm[Hg] - Sitting 136.40 NI 100.20 Tympanic 96.00 % 92.00/ min 18.00/min 32567 004 79878 6 10386 004 99888 4 143.00 mg/dL 93349 0 97.80 Tympanic 005 19907 7 60.00 mm[Hg] - Sitting 140.00 mm[Hg] - Sitting 98.00 Tympanic 84.00/ min 18.00/min 12403 005 70979 0 63.00 mm[Hg] - Sitting 141.00 mm[Hg] - Sitting 98.20 Tympanic 92.00 % 63.00/ min 16.00/min 14567 005 34686 8 69.00 mm[Hg] - Sitting 106.00 mm[Hg] - Sitting 97.20 Tympanic 37696 005 53237 7 69.00/ min 16.00/min 74018 005 32879 3 69.00 mm[Hg] - Sitting 106.00 mm[Hg] - Sitting 98.20 Tympanic 69.00/ min 16.00/min 24114 005 06166 1 367.00 mg/dL 82357 005 13782 2 97.20 Tympanic 93682 005 86768 4 97.20 Tympanic 09581 005 01331 0 69.00 mm[Hg] - Sitting 106.00 mm[Hg] - Sitting 69.00/ min 70123 005 04078 3 452.00 mg/dL 69963 005 41086 3 452.00 mg/dL 43217 005 62559 5 352.00 mg/dL 03819 005 46114 3 352.00 mg/dL 64446 005 35808 7 98.20 Tympanic 36099 005 60928 3 101.00 mg/dL 51854 005 90281 8 101.00 mg/dL 74091 006 50235 4 66.00 mm[Hg] - Sitting 107.00 mm[Hg] - Sitting 98.00 Tympanic 66.00/ min 18.00/min 50944 006 60998 0 62.00 mm[Hg] - Sitting 162.00 mm[Hg] - Sitting 98.20 Tympanic 96.00 % 60.00/ min 16.00/min 44799 006 39550 4 62.00 mm[Hg] - Sitting 162.00 mm[Hg] - Sitting 98.00 Tympanic 70.00/ min 18.00/min 52835 006 04347 8 62.00 mm[Hg] - Sitting 162.00 mm[Hg] - Sitting 98.20 Tympanic 70.00/ min 18.00/min 10454 006 68631 2 66.00 mm[Hg] - Sitting 132.00 mm[Hg] - Sitting 98.60 Tympanic 74.00/ min 16.00/min 23306 006 98901 5 159.00 mg/dL 46497 006 25918 1 159.00 mg/dL 28063 006 94143 8 98.00 Tympanic 36791 006 78525 2 62.00 mm[Hg] - Sitting 162.00 mm[Hg] - Sitting 70.00/ min 44535 006 73568 7 264.00 mg/dL 14037 006 03104 7 264.00 mg/dL 91030 006 77799 4 196.00 mg/dL 28358 006 13930 3 98.20 Tympanic 22095 006 38227 6 271.00 mg/dL 27286 007 72571 3 97.20 Tympanic 93670 007 69659 2 63.00 mm[Hg] - Sitting 132.00 mm[Hg] - Sitting 98.50 Tympanic 94.00 % 66.00/ min 16.00/min 26140 007 70142 5 188.00 mg/dL 71904 007 61945 2 188.00 mg/dL 85805 007 28352 2 188.00 mg/dL 59069 007 40688 7 97.20 Tympanic 20030 007 22396 6 97.20 Tympanic 15592 007 53009 5 67.00 mm[Hg] - Sitting 152.00 mm[Hg] - Sitting 68.00/ min 03826 007 16877 0 141.00 mg/dL 03915 007 39274 3 141.00 mg/dL 62782 007 46364 1 366.00 mg/dL 74690 007 90081 7 366.00 mg/dL 55081 007 62403 7 98.00 Tympanic 04509 007 63861 6 324.00 mg/dL 45014 007 64982 3 98.00 Tympanic 31814 007 78149 7 324.00 mg/dL 47093 008 55911 0 98.00 Tympanic 57306 008 41847 2 97.90 Tympanic 05766 008 84681 0 98.20 Tympanic 15835 008 69831 0 73.00 mm[Hg] - Sitting 156.00 mm[Hg] - Sitting 98.60 Tympanic 99.00 % 66.00/ min 20.00/min 40190 008 17839 5 137.00 mg/dL 46278 008 25054 7 137.00 mg/dL 27808 008 55309 2 97.90 Tympanic 37649 008 09210 1 137.00 mg/dL 12756 008 42400 8 97.90 Tympanic 55091 008 73070 5 67.00 mm[Hg] - Sitting 124.00 /min 84946 008 10524 6 212.00 mg/dL 15293 008 22911 6 212.00 mg/dL 39309 008 78774 9 317.00 mg/dL 35699 008 89602 4 317.00 mg/dL 71577 008 88943 8 252.00 mg/dL 09608 008 88686 0 98.70 Tympanic 90084 008 97599 7 252.00 mg/dL 95212 008 16038 3 98.70 Tympanic 33577 009 58723 9 98.70 Tympanic 07781 009 81688 3 98.20 Tympanic 35338 009 13525 5 98.40 Tympanic 08149 009 70130 5 57.00 mm[Hg] - Sitting 129.00 mm[Hg] - Sitting 98.30 Tympanic 97.00 % 65.00/ min 18.00/min 39373 009 40227 1 255.00 mg/dL 43213 009 14452 4 255.00 mg/dL 02505 009 16579 5 98.20 Tympanic 96257 009 84712 0 255.00 mg/dL 46000 009 16292 0 98.20 Tympanic 93610 009 39910 4 63.00 mm[Hg] - Lying Down 102.00 mm[Hg] - Lying Down 58.00/ min 32507 009 54436 0 167.00 mg/dL 34295 009 15677 1 167.00 mg/dL 84148 009 88422 2 164.00 mg/dL 85899 009 84602 1 164.00 mg/dL 91268 009 81522 5 208.00 mg/dL 73148 010 63864 3 98.40 Tympanic 31001 010 00378 5 98.40 Tympanic 90617 010 60362 7 66 [place] [address] 010 94042 4 60.00 mm[Hg] - Sitting 143.00 mm[Hg] - Sitting 98.90 Tympanic 98.00 % 67.00/ min 18.00/min 31686 010 71536 2 214.00 mg/dL 77703 010 65798 0 214.00 mg/dL 34848 010 40760 7 214.00 mg/dL 37553 010 12944 6 64.00 mm[Hg] - Sitting 110.00 mm[Hg] - Sitting 72.00/ min 21112 010 36327 7 98.40 Tympanic 49432 010 75439 1 212.00 mg/dL 46417 010 99261 2 212.00 mg/dL 05310 010 79280 1 115.00 mg/dL 02805 010 42430 0 115.00 mg/dL 75865 010 08963 4 98.50 Tympanic 83582 010 87934 4 150.00 mg/dL 01002 010 85840 0 150.00 mg/dL 86887 011 96133 9 98.60 Tympanic 99927 011 72967 1 67.00 mm[Hg] - Sitting 144.00 mm[Hg] - Sitting 98.20 Tympanic 98.00 % 61.00/ min 18.00/min 83648 011 62306 7 290.00 mg/dL 99146 011 11472 2 290.00 mg/dL 17521 011 73367 2 290.00 mg/dL 30660 011 72290 7 54.00 mm[Hg] - Sitting 136.00 mm[Hg] - Sitting 101.00 /min 80350 011 76349 7 98.60 Tympanic 14214 011 09695 5 240.00 mg/dL 95743 011 27763 1 240.00 mg/dL 10124 011 60399 1 156.00 mg/dL 73446 011 78216 9 156.00 mg/dL 99491 011 57426 0 97.80 Tympanic 35060 011 85314 8 343.00 mg/dL 65131 012 41848 9 97.90 Tympanic 39263 012 98578 2 466.00 mg/dL 94828 012 85300 1 466.00 mg/dL 88248 012 36890 3 466.00 mg/dL 76674 012 34597 8 97.90 Tympanic 35659 012 19669 8 56.00 mm[Hg] - Sitting 96.00 mm[Hg] - Sitting 61.00/ min 56051 012 67269 7 350.00 mg/dL 95818 012 62582 5 350.00 mg/dL 50791 012 05601 6 111.00 mg/dL 02687 012 25618 0 111.00 mg/dL 59428 012 77437 5 98.40 Tympanic 17055 012 87794 6 114.00 mg/dL 21343 013 01658 4 74.00 mm[Hg] - Sitting 112.00 mm[Hg] - Sitting 98.40 Tympanic 70.00/ min 18.00/min 03580 013 19809 8 244.00 mg/dL 32474 013 16851 7 244.00 mg/dL 97686 013 64246 1 244.00 mg/dL 63068 013 38471 1 98.20 Tympanic 91830 013 05766 7 72.00 mm[Hg] - Sitting 119.00 mm[Hg] - Sitting 76.00/ min 34923 013 59219 7 253.00 mg/dL 27910 013 04419 4 253.00 mg/dL 16923 013 58737 9 156.00 mg/dL 87972 013 76404 5 156.00 mg/dL 78932 013 64179 4 97.90 Tympanic 60015 013 04289 5 189.00 mg/dL 50315 014 00416 9 98.10 Tympanic 04581 014 91715 0 61.00 mm[Hg] - Sitting 139.00 mm[Hg] - Sitting 98.20 Forehead Scan 99.00 % 66.00/ min 18.00/min 12309 014 77780 3 169.00 mg/dL 76041 014 74928 3 98.10 Tympanic 89176 014 11615 3 75.00 mm[Hg] - Sitting 121.00 mm[Hg] - Sitting 71.00/ min 43455 014 33194 9 221.00 mg/dL 47988 014 04475 9 62.00 mg/dL 27378 014 78763 5 62.00 mg/dL 34132 014 60539 8 156.00 mg/dL 71412 014 34853 6 98.10 Tympanic 92591 014 87756 7 156.00 mg/dL 12439 015 96617 4 28204 015 72144 7 62.00 mm[Hg] - Sitting 142.00 mm[Hg] - Sitting 98.20 Tympanic 99.00 % 67.00/ min 18.00/min 47192 015 54292 9 120.00 mg/dL 04642 015 68718 7 98.00 Tympanic 42323 015 32378 2 82.00 mm[Hg] - Sitting 119.00 /min 35898 015 63538 9 110.00 mg/dL 12493 015 84378 6 104.00 mg/dL 07100 015 51912 0 100.00 mg/dL 69924 015 30668 2 98.10 Tympanic 49977 015 00645 6 100.00 mg/dL 78594 016 76992 2 67.00 mm[Hg] - Sitting 147.00 mm[Hg] - Sitting 99.00 Tympanic 99.00 % 78.00/ min 20.00/min 64768 016 06957 5 158.00 mg/dL 50151 016 08676 1 158.00 mg/dL 61101 016 43676 2 158.00 mg/dL 72635 016 98592 0 66.00 mm[Hg] - Sitting 121.00 mm[Hg] - Sitting 74.00/ min 59710 016 58113 1 97.00 mg/dL 61915 016 98199 5 97.00 mg/dL 97064 016 74904 4 78.00 mg/dL 97953 016 47703 6 78.00 mg/dL 49492 016 98013 5 248.00 mg/dL 76595 016 78390 8 248.00 mg/dL 38992 017 47125 4 267.00 mg/dL 74758 017 30908 6 73.00 mm[Hg] - Sitting 109.00 mm[Hg] - Sitting 70.00/ min Immunizations Vaccine Date Status COVID-19 09/20/2023 Completed Other 10/08/2023 Completed Shingles 05/27/2011 Completed Tetanus 04/13/2022 Completed TDaP 04/13/2022 Completed Shingles 2 10/05/2018 Completed
--- OUTSIDE RECORDS SUMMARY | 2024-10-03 11:12 | External Medical Summary | Continuity Of Care Document ---
Author Name Unknown Address [address] [address] Organization [facility] () Care Team Providers Care Biomass Facilitator Name Role Phone DO Machado Amy Primary Care Provider [phone] Allergies Allergy Reaction Start Date End Date [...] 3 0.1 mL 08/29 Inactiv e 2023 57671 96713 0 1 time Intrad ermal False Tubersol 5 tub. unit/0.1 mL intradermal injection solution [Tuberculin PPD] 0.1mL Intradermal 1 time For PPD 2nd Step Give 2nd Step PPD Day 1 and Read results Day 3 (schedule 7 days after 1st READ) 0.1mL 09/08 Active 2023 25953 37004 0 1 time Intrad ermal False Humalog [...] order For Diabetes 08/25 Inactiv e 2023 54414 55547 9 4 times a day Subcut aneous False Aspirin 325 mg tablet [generic] 325 By Mouth Twice daily For Anticoagulati on 325 09/25 Active 2023 82171 35018 1 Twice daily By Mouth False Ferrous sulfate 325 mg (65 mg iron) tablet [generic] 325 By Mouth Once daily For anemia 325 2023 Active 2023 95775 76186 5 Once daily By Mouth False Linezolid 600 mg tablet [generic] 600 mg By Mouth Every 12 hours For MRSA INFECTION L BKA 600 mg 08/25 Inactiv e 2023 73720 22014 1 Every 12 hours By Mouth False Cefpodoxime 200 mg tablet [generic] 400 mg By Mouth Twice daily For MRSA INFECTION L BKA 400 mg 08/25 Inactiv e 2023 20958 69271 0 Twice daily By Mouth False Coenzyme Q10 100 mg tablet [generic] 100 mg By Mouth Once daily For SUPP 100 mg 2023 Active 2023 04069 24945 0 Once daily By Mouth False Levothyroxi ne 50 mcg tablet [generic] 50mcg By Mouth Once daily For hypothyroidis m 50mcg 2023 Active 2023 31276 94797 0 Once daily By Mouth False One A Day Men Complete 240 mcg-25 mcg-300 mcg tablet 1 tab By Mouth Once daily For supplement 1 tab 2023 Active 2023 91133 87747 1 Once daily By Mouth False Cholecalcif adalberto (vitamin D3) 50 mcg (2,000 unit) tablet [generic] 1 TAB By Mouth Once daily For SUPP 1 TAB 2023 Active 2023 91758 95597 1 Once daily By Mouth False Cetirizine 10 mg tablet [generic] 1 TAB By Mouth At bedtime For Allergies 1 TAB 2023 Active 2023 33086 05078 0 At bedtime By Mouth False Timolol maleate 0.25 % eye drops [generic] 1 drop Both Eyes Twice daily For glaucoma 1 drop 2023 0000 /0000 Active 2023 87714 17280 5 Twice daily Both Eyes False Alendronate 35 mg tablet [generic] 35mg By Mouth Every week For SIADH 35mg 08/31 Inactiv e 2023 76867 38408 5 Every week By Mouth False Lantus Solostar U-100 Insulin 100 unit/mL (3 mL) subcutaneou s pen 18 units Subcutaneous Every morning For DIABETES 18 units 08/25 Inactiv e 2023 79339 81912 0 Every morning Subcut aneous False Lantus Solostar U-100 Insulin 100 unit/mL (3 mL) subcutaneou s pen 18 units Subcutaneous Every morning For DIABETES 18 units 2023 Active 2023 71445 85289 0 Every morning Subcut aneous False Linezolid 600 mg tablet [generic] 600 mg By Mouth Every 12 hours For MRSA INFECTION L BKA 600 mg 08/28 Inactiv e 2023 10499 43111 1 Every 12 hours By Mouth False [...] order For Diabetes 08/31 Inactiv e 2023 05700 87773 9 4 times a day Subcut aneous False Cefpodoxime 200 mg tablet [generic] 400 mg By Mouth Twice daily For MRSA INFECTION L BKA 400 mg 08/28 Inactiv e 2023 78943 11069 0 Twice daily By Mouth False Brimonidine 0.1 % eye drops [generic] 1 drop Both Eyes Twice daily For glaucoma 1 drop 2023 Active 2023 55809 53463 0 Twice daily Both Eyes False Metoprolol succinate ER 50 mg tablet,exte nded release 24 hr [generic] 50 mg By Mouth Once daily HOLD FOR SBP <100, or pulse <60 For HTN 50 mg 2023 Active 2023 58043 31210 1 Once daily By Mouth False Amlodipine 2.5 mg tablet [generic] 2.5 mg By Mouth Once daily For HTN 2.5 mg 2023 Active 2023 98304 19414 5 Once daily By Mouth False Docusate sodium 100 mg capsule [generic] 100mg By Mouth Twice daily as needed For constipation HOLD FOR LOOSE STOOLS 100mg 2023 Active 2023 15518 19576 1 Twice daily as needed By Mouth False Atorvastati n 40 mg tablet [generic] 40mg By Mouth Once daily For HDL 40mg 08/26 Inactiv e 2023 53874 95787 5 Once daily By Mouth False Tylenol 325 mg tablet 2 tabs By Mouth Every 4 hours as needed For Pain DO NOT EXCEED 3000 MG APAP/24 Hours 2 tabs 2023 Active 2023 24428 35009 0 Every 4 hours as needed By Mouth False Tylenol 325 mg tablet 2 tabs By Mouth Every 4 hours as needed For Fever >100 DO NOT EXCEED 3000 MG APAP/24 Hours 2 tabs 2023 Active 2023 01303 07606 0 Every 4 hours as needed By Mouth False Dulcolax (bisacodyl) 10 mg rectal suppository One Suppository per rectum PRN if Milk of Magnisia ineffective. Give on day 5 of no BM 1 sup 2023 Active 2023 92145 99411 1 Daily as needed Rectal False Fleet Enema 19 gram-7 gram/118 mL Administer per rectum PRN one time if dulcolax suppository not effective. Give on day 6 of no BM 1 2023 Active 2023 32137 90499 6 Daily as needed Rectal False Dextrose 50 % in water (D50W) intravenous solution [generic] Dextrose 50% evonne 20-50 ml (slow push) Intravenous if Glucagon not effective after 15 minutes. CALL 911 for ED Evaluation. 50% evonne 2023 Active 2023 45367 88132 9 Intrav enous False Glucagon (HCl) Emergency Kit 1 mg solution for injection Administer Glucagon 1 mg Intramuscular if 15 minutes after GLucose Gel is administered Glucose remains less than 70 1 mg 2023 Active 2023 06737 75445 2 Intram uscula r False Glucose Gel 40 % oral gel [Dextrose] PRN If resident is unable to swallow (with or without symptoms) and Glucose results less than 70 give GLucose 40% Gel 1 tube orally - Recheck Glucose 15 minutes after administratio n. 1 tube 2023 Active 2023 20447 87576 8 By Mouth False Milk of Magnesia 400 mg/5 mL oral suspension [Magnesium hydroxide] PRN 30ml By Mouth Daily as needed for constipation one time daily if no BM, on day 4 of no BM (PRN refer to instructions) For Constipation 30 mL 2023 Active 2023 53990 68748 6 Daily as needed By Mouth False Atorvastati n 40 mg tablet [generic] 08/26 Inactiv e 2023 88090 80842 5 Atorvastati n 40 mg tablet [generic] 40mg By Mouth Once daily For HDL 40mg 2023 Active 2023 33968 88733 5 Once daily By Mouth False Insulin aspart (U-100) 100 unit/mL (3 mL) subcutaneou s pen [generic] 15 units Subcutaneous 1 time For dm 15 units 08/26 Inactiv e 2023 47872 70102 5 1 time Subcut aneous False Humalog KwikPen (U-100) Insulin 100 unit/mL subcutaneou s 15 units Subcutaneous 1 time For dm 15 units 08/27 Inactiv e 2023 03015 29821 9 1 time Subcut aneous False Linezolid 600 mg tablet [generic] 600 mg By Mouth Every 12 hours For MRSA INFECTION L BKA 600 mg 09/06 Inactiv e 2023 54815 53375 1 Every 12 hours By Mouth False Cefpodoxime 200 mg tablet [generic] 400 mg By Mouth Twice daily For MRSA INFECTION L BKA 400 mg 08/31 Inactiv e 2023 06478 07990 0 Twice daily By Mouth False Senna 8.6 mg tablet 8.6 mg By Mouth Once daily For Constipation 8.6 mg 2023 Active 2023 88856 00353 1 Once daily By Mouth False Humalog [...] abnormalities . Per Carb 2023 Active 2023 77059 15531 9 4 times a day Subcut aneous False Alendronate 35 mg tablet [generic] 08/31 Inactiv e 2023 67341 13959 5 Alendronate 35 mg tablet [generic] 35mg By Mouth Every week For Osteoporosis 35mg 2023 Active 2023 57455 35341 5 Every week By Mouth False ProSource 10 gram-100 kcal/30 mL oral liquid 30 ml By Mouth Once daily For wound healing 30 ml 2023 Active 2023 44822 80462 2 Once daily By Mouth False Clotrimazol e 1 % topical cream [generic] 1 applicaiton Topical Twice daily For tinea, apply to groin rash after cleansing and throughouly drying. Can discontinue order 3 days after rash resolves. 1 applica stacy 09/19 Active 2023 84167 56175 0 Twice daily Topica l False Humalog KwikPen (U-100) Insulin 100 unit/mL subcutaneou s 08/31 Inactiv e 2023 30811 30354 9 MediHoney HCS 4 1/2in X 4 1/2in bandage Cleanse area with NSS, apply one medihoney hydrocolloid dressing, non adherent dressing, kerlix secure with paper tape daily. For wound stage III 1 2023 Active 2023 57294 45770 1 Once daily Topica l False Problems Code Description Start Date End Date Status D64.9 Anemia, unspecified 08/25/2024 Activ e I25.10 Atherosclerotic hear t disease of [place] coronary artery without angina pectoris 08/25/2024 Active [...] weight Temperature SpO2 Blood Sugar Pulse Respirations 45718 8 67.00 mm[Hg] - Sitting 145.00 mm[Hg] - Sitting 98.50 Forehead Scan 96.00 % 81.00/ min 16.00/min 004 18219 2 67.00 mm[Hg] - Sitting 145.00 mm[Hg] - Sitting 98.50 Tympanic 81.00/ min 16.00/min 004 47125 5 56.00 mm[Hg] - Sitting 142.00 mm[Hg] - Sitting 136.40 NI 100.20 Tympanic 96.00 % 92.00/ min 18.00/min 85194 004 55587 6 40691 004 32887 4 143.00 mg/dL 47425 0 97.80 Tympanic 005 77581 7 60.00 mm[Hg] - Sitting 140.00 mm[Hg] - Sitting 98.00 Tympanic 84.00/ min 18.00/min 50402 005 81538 0 63.00 mm[Hg] - Sitting 141.00 mm[Hg] - Sitting 98.20 Tympanic 92.00 % 63.00/ min 16.00/min 50998 005 95621 8 69.00 mm[Hg] - Sitting 106.00 mm[Hg] - Sitting 97.20 Tympanic 005 92463 7 69.00/ min 16.00/min 81772 005 44924 3 69.00 mm[Hg] - Sitting 106.00 mm[Hg] - Sitting 98.20 Tympanic 69.00/ min 16.00/min 40626 005 55198 1 367.00 mg/dL 91290 005 73913 2 97.20 Tympanic 09228 005 50952 4 97.20 Tympanic 75307 005 54419 0 69.00 mm[Hg] - Sitting 106.00 mm[Hg] - Sitting 69.00/ min 89583 005 81392 3 452.00 mg/dL 40154 005 90180 3 452.00 mg/dL 31607 005 73394 5 352.00 mg/dL 11471 005 79106 3 352.00 mg/dL 82883 005 67586 7 98.20 Tympanic 26649 005 3 101.00 mg/dL 37525 005 8 101.00 mg/dL 22576 006 93994 4 66.00 mm[Hg] - Sitting 107.00 mm[Hg] - Sitting 98.00 Tympanic 66.00/ min 18.00/min 99988 006 54041 0 62.00 mm[Hg] - Sitting 162.00 mm[Hg] - Sitting 98.20 Tympanic 96.00 % 60.00/ min 16.00/min 93228 006 67249 4 62.00 mm[Hg] - Sitting 162.00 mm[Hg] - Sitting 98.00 Tympanic 70.00/ min 18.00/min 07234 006 93759 8 62.00 mm[Hg] - Sitting 162.00 mm[Hg] - Sitting 98.20 Tympanic 70.00/ min 18.00/min 05480 006 85298 2 66.00 mm[Hg] - Sitting 132.00 mm[Hg] - Sitting 98.60 Tympanic 74.00/ min 16.00/min 51867 006 39994 5 159.00 mg/dL 55642 006 59599 1 159.00 mg/dL 05819 006 63346 8 98.00 Tympanic 20719 006 38479 2 62.00 mm[Hg] - Sitting 162.00 mm[Hg] - Sitting 70.00/ min 92457 006 67701 7 264.00 mg/dL 66991 006 10909 7 264.00 mg/dL 74714 006 35696 4 196.00 mg/dL 18380 006 84541 3 98.20 Tympanic 64424 006 81567 6 271.00 mg/dL 00414 007 63346 3 97.20 Tympanic 28700 007 32267 2 63.00 mm[Hg] - Sitting 132.00 mm[Hg] - Sitting 98.50 Tympanic 94.00 % 66.00/ min 16.00/min 39948 007 30252 5 188.00 mg/dL 93001 007 45264 2 188.00 mg/dL 18662 007 38160 2 188.00 mg/dL 08710 007 74533 7 97.20 Tympanic 00053 007 97806 6 97.20 Tympanic 71965 007 90392 5 67.00 mm[Hg] - Sitting 152.00 mm[Hg] - Sitting 68.00/ min 04518 007 33363 0 141.00 mg/dL 72467 007 05804 3 141.00 mg/dL 38852 007 33229 1 366.00 mg/dL 44682 007 80892 7 366.00 mg/dL 65109 007 01417 7 98.00 Tympanic 89544 007 77877 6 324.00 mg/dL 88889 007 27325 3 98.00 Tympanic 14588 007 64339 7 324.00 mg/dL 71018 008 80168 0 98.00 Tympanic 22967 008 14460 2 97.90 Tympanic 94491 008 75825 0 98.20 Tympanic 18397 008 43227 0 73.00 mm[Hg] - Sitting 156.00 mm[Hg] - Sitting 98.60 Tympanic 99.00 % 66.00/ min 20.00/min 98041 008 99131 5 137.00 mg/dL 06421 008 39283 7 137.00 mg/dL 61478 008 21207 2 97.90 Tympanic 89743 008 50471 1 137.00 mg/dL 52277 008 25319 8 97.90 Tympanic 80356 008 81991 5 67.00 mm[Hg] - Sitting 124.00 /min 75885 008 52944 6 212.00 mg/dL 08923 008 61990 6 212.00 mg/dL 70113 008 57671 9 317.00 mg/dL 06863 008 39891 4 317.00 mg/dL 74815 008 32808 8 252.00 mg/dL 58571 008 58373 0 98.70 Tympanic 02347 008 65482 7 252.00 mg/dL 74960 008 78683 3 98.70 Tympanic 17236 009 92070 9 98.70 Tympanic 86741 009 08975 3 98.20 Tympanic 32018 009 73208 5 98.40 Tympanic 45763 009 51790 5 57.00 mm[Hg] - Sitting 129.00 mm[Hg] - Sitting 98.30 Tympanic 97.00 % 65.00/ min 18.00/min 52698 009 69828 1 255.00 mg/dL 33311 009 10994 4 255.00 mg/dL 77435 009 39610 5 98.20 Tympanic 95895 009 48121 0 255.00 mg/dL 07580 009 51383 0 98.20 Tympanic 23291 009 29708 4 63.00 mm[Hg] - Lying Down 102.00 mm[Hg] - Lying Down 58.00/ min 91607 009 58452 0 167.00 mg/dL 33552 009 00119 1 167.00 mg/dL 97169 009 27118 2 164.00 mg/dL 25124 009 84848 1 164.00 mg/dL 74621 009 36577 5 208.00 mg/dL 80005 010 98697 3 98.40 Tympanic 00376 010 71323 5 98.40 Tympanic 50306 010 09271 7 66 NI 00032 010 60147 4 60.00 mm[Hg] - Sitting 143.00 mm[Hg] - Sitting 98.90 Tympanic 98.00 % 67.00/ min 18.00/min 23666 010 74030 2 214.00 mg/dL 99726 010 91404 0 214.00 mg/dL 72871 010 29311 7 214.00 mg/dL 75364 010 37676 6 64.00 mm[Hg] - Sitting 110.00 mm[Hg] - Sitting 72.00/ min 88532 010 45040 7 98.40 Tympanic 11358 010 70868 1 212.00 mg/dL 83823 010 49951 2 212.00 mg/dL 66256 010 12926 1 115.00 mg/dL 87546 010 68385 0 115.00 mg/dL 08045 010 10360 4 98.50 Tympanic 38682 010 53030 4 150.00 mg/dL 91710 010 78733 0 150.00 mg/dL 08728 011 71596 9 98.60 Tympanic 92852 011 48438 1 67.00 mm[Hg] - Sitting 144.00 mm[Hg] - Sitting 98.20 Tympanic 98.00 % 61.00/ min 18.00/min 02261 011 38195 7 290.00 mg/dL 35235 011 71167 2 290.00 mg/dL 07211 011 49343 2 290.00 mg/dL 19940 011 34327 7 54.00 mm[Hg] - Sitting 136.00 mm[Hg] - Sitting 101.00 /min 48903 011 13414 7 98.60 Tympanic 31431 011 50018 5 240.00 mg/dL 07407 011 01401 1 240.00 mg/dL 32553 011 62586 1 156.00 mg/dL 42845 011 41544 9 156.00 mg/dL 54937 011 22668 0 97.80 Tympanic 04140 011 35884 8 343.00 mg/dL 40668 012 36552 9 97.90 Tympanic 79032 012 75164 2 466.00 mg/dL 86540 012 28986 1 466.00 mg/dL 21788 012 07835 3 466.00 mg/dL 20303 012 42159 8 97.90 Tympanic 72983 012 92908 8 56.00 mm[Hg] - Sitting 96.00 mm[Hg] - Sitting 61.00/ min 60274 012 02657 7 350.00 mg/dL 76601 012 48809 5 350.00 mg/dL 67556 012 37450 6 111.00 mg/dL 64220 012 54272 0 111.00 mg/dL 06872 012 56037 5 98.40 Tympanic 90706 012 59271 6 114.00 mg/dL 11655 013 85429 4 74.00 mm[Hg] - Sitting 112.00 mm[Hg] - Sitting 98.40 Tympanic 70.00/ min 18.00/min 02436 013 79762 8 244.00 mg/dL 62272 013 80206 7 244.00 mg/dL 86440 013 03292 1 244.00 mg/dL 28464 013 60124 1 98.20 Tympanic 43041 013 65880 7 72.00 mm[Hg] - Sitting 119.00 mm[Hg] - Sitting 76.00/ min 21858 013 73773 7 253.00 mg/dL 81817 013 17261 4 253.00 mg/dL 28392 013 70356 9 156.00 mg/dL 92572 013 18141 5 156.00 mg/dL 74719 013 65875 4 97.90 Tympanic 81037 013 44562 5 189.00 mg/dL 77451 014 88421 9 98.10 Tympanic 76283 014 19025 0 61.00 mm[Hg] - Sitting 139.00 mm[Hg] - Sitting 98.20 Forehead Scan 99.00 % 66.00/ min 18.00/min 76518 014 29907 3 169.00 mg/dL 25417 014 90904 3 98.10 Tympanic 99946 014 90869 3 75.00 mm[Hg] - Sitting 121.00 mm[Hg] - Sitting 71.00/ min 22699 014 03340 9 221.00 mg/dL 42685 014 62374 9 62.00 mg/dL 71211 014 77780 5 62.00 mg/dL 98858 014 31115 8 156.00 mg/dL 35347 014 03057 6 98.10 Tympanic 44403 014 38380 7 156.00 mg/dL 38750 015 42962 4 75974 015 06124 7 62.00 mm[Hg] - Sitting 142.00 mm[Hg] - Sitting 98.20 Tympanic 99.00 % 67.00/ min 18.00/min 29757 015 98227 9 120.00 mg/dL 21390 015 19328 7 98.00 Tympanic 43162 015 41307 2 82.00 mm[Hg] - Sitting 119.00 /min 48147 015 56155 9 110.00 mg/dL 29755 015 38834 6 104.00 mg/dL 10693 015 53386 0 100.00 mg/dL 81029 015 70143 2 98.10 Tympanic 97197 015 10075 6 100.00 mg/dL Immunizations Vaccine Date Status COVID-19 09/20/2023 Completed Other 10/08/2023 Completed Shingles 05/27/2011 Completed Tetanus 04/13/2022 Completed TDaP 04/13/2022 Completed Shingles 2 10/05/2018 Completed
--- OUTSIDE RECORDS SUMMARY | 2024-10-03 11:12 | External Medical Summary | Continuity Of Care Document ---
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 unit/0.1 mL intradermal injection solution [Tuberculin PPD] 0.1mL Intradermal 1 time For PPD 2nd Step Give 2nd Step PPD Day 1 and Read results Day 3 (schedule 7 days after 1st READ) 0.1mL 09/08 Active 2023 58588 20988 0 1 time Intrad ermal False Humalog [...] order For Diabetes 08/25 Inactiv e 2023 63977 54331 9 4 times a day Subcut aneous False Aspirin 325 mg tablet [generic] 325 By Mouth Twice daily For Anticoagulati on 325 09/25 Active 2023 72691 26744 1 Twice daily By Mouth False Ferrous sulfate 325 mg (65 mg iron) tablet [generic] 325 By Mouth Once daily For anemia 325 2023 Active 2023 24908 85290 5 Once daily By Mouth False Linezolid 600 mg tablet [generic] 600 mg By Mouth Every 12 hours For MRSA INFECTION L BKA 600 mg 08/25 Inactiv e 2023 95983 08914 1 Every 12 hours By Mouth False Cefpodoxime 200 mg tablet [generic] 400 mg By Mouth Twice daily For MRSA INFECTION L BKA 400 mg 08/25 Inactiv e 2023 21826 45091 0 Twice daily By Mouth False Coenzyme Q10 100 mg tablet [generic] 100 mg By Mouth Once daily For SUPP 100 mg 2023 Active 2023 26898 14778 0 Once daily By Mouth False Levothyroxi ne 50 mcg tablet [generic] 50mcg By Mouth Once daily For hypothyroidis m 50mcg 2023 Active 2023 83727 73090 0 Once daily By Mouth False One A Day Men Complete 240 mcg-25 mcg-300 mcg tablet 1 tab By Mouth Once daily For supplement 1 tab 2023 Active 2023 86759 99712 1 Once daily By Mouth False Cholecalcif adalberto (vitamin D3) 50 mcg (2,000 unit) tablet [generic] 1 TAB By Mouth Once daily For SUPP 1 TAB 2023 Active 2023 72861 96687 1 Once daily By Mouth False Cetirizine 10 mg tablet [generic] 1 TAB By Mouth At bedtime For Allergies 1 TAB 2023 Active 2023 91840 60144 0 At bedtime By Mouth False Timolol maleate 0.25 % eye drops [generic] 1 drop Both Eyes Twice daily For glaucoma 1 drop 2023 0000 /0000 Active 2023 55724 96922 5 Twice daily Both Eyes False Alendronate 35 mg tablet [generic] 35mg By Mouth Every week For SIADH 35mg 08/31 Inactiv e 2023 93634 72662 5 Every week By Mouth False Lantus Solostar U-100 Insulin 100 unit/mL (3 mL) subcutaneou s pen 18 units Subcutaneous Every morning For DIABETES 18 units 08/25 Inactiv e 2023 27419 97942 0 Every morning Subcut aneous False Lantus Solostar U-100 Insulin 100 unit/mL (3 mL) subcutaneou s pen 18 units Subcutaneous Every morning For DIABETES 18 units 2023 Active 2023 74969 66241 0 Every morning Subcut aneous False Linezolid 600 mg tablet [generic] 600 mg By Mouth Every 12 hours For MRSA INFECTION L BKA 600 mg 08/28 Inactiv e 2023 87804 42277 1 Every 12 hours By Mouth False [...] order For Diabetes 08/31 Inactiv e 2023 01752 71309 9 4 times a day Subcut aneous False Cefpodoxime 200 mg tablet [generic] 400 mg By Mouth Twice daily For MRSA INFECTION L BKA 400 mg 08/28 Inactiv e 2023 96924 50931 0 Twice daily By Mouth False Brimonidine 0.1 % eye drops [generic] 1 drop Both Eyes Twice daily For glaucoma 1 drop 2023 Active 2023 04603 72443 0 Twice daily Both Eyes False Metoprolol succinate ER 50 mg tablet,exte nded release 24 hr [generic] 50 mg By Mouth Once daily HOLD FOR SBP <100, or pulse <60 For HTN 50 mg 2023 Active 2023 33056 02677 1 Once daily By Mouth False Amlodipine 2.5 mg tablet [generic] 2.5 mg By Mouth Once daily For HTN 2.5 mg 2023 Active 2023 05321 13773 5 Once daily By Mouth False Docusate sodium 100 mg capsule [generic] 100mg By Mouth Twice daily as needed For constipation HOLD FOR LOOSE STOOLS 100mg 2023 Active 2023 18783 51918 1 Twice daily as needed By Mouth False Atorvastati n 40 mg tablet [generic] 40mg By Mouth Once daily For HDL 40mg 08/26 Inactiv e 2023 45360 19607 5 Once daily By Mouth False Tylenol 325 mg tablet 2 tabs By Mouth Every 4 hours as needed For Pain DO NOT EXCEED 3000 MG APAP/24 Hours 2 tabs 2023 Active 2023 28189 85149 0 Every 4 hours as needed By Mouth False Tylenol 325 mg tablet 2 tabs By Mouth Every 4 hours as needed For Fever >100 DO NOT EXCEED 3000 MG APAP/24 Hours 2 tabs 2023 Active 2023 92736 73562 0 Every 4 hours as needed By Mouth False Dulcolax (bisacodyl) 10 mg rectal suppository One Suppository per rectum PRN if Milk of Magnisia ineffective. Give on day 5 of no BM 1 sup 2023 Active 2023 56249 47381 1 Daily as needed Rectal False Fleet Enema 19 gram-7 gram/118 mL Administer per rectum PRN one time if dulcolax suppository not effective. Give on day 6 of no BM 1 2023 Active 2023 82418 43893 6 Daily as needed Rectal False Dextrose 50 % in water (D50W) intravenous solution [generic] Dextrose 50% evonne 20-50 ml (slow push) Intravenous if Glucagon not effective after 15 minutes. CALL 911 for ED Evaluation. 50% evonne 2023 Active 2023 02766 71969 9 Intrav enous False Glucagon (HCl) Emergency Kit 1 mg solution for injection Administer Glucagon 1 mg Intramuscular if 15 minutes after GLucose Gel is administered Glucose remains less than 70 1 mg 2023 Active 2023 36850 23990 2 Intram uscula r False Glucose Gel 40 % oral gel [Dextrose] PRN If resident is unable to swallow (with or without symptoms) and Glucose results less than 70 give GLucose 40% Gel 1 tube orally - Recheck Glucose 15 minutes after administratio n. 1 tube 2023 Active 2023 53211 62235 8 By Mouth False Milk of Magnesia 400 mg/5 mL oral suspension [Magnesium hydroxide] PRN 30ml By Mouth Daily as needed for constipation one time daily if no BM, on day 4 of no BM (PRN refer to instructions) For Constipation 30 mL 2023 Active 2023 65662 95631 6 Daily as needed By Mouth False Atorvastati n 40 mg tablet [generic] 08/26 Inactiv e 2023 09117 97190 5 Atorvastati n 40 mg tablet [generic] 40mg By Mouth Once daily For HDL 40mg 2023 Active 2023 79344 78001 5 Once daily By Mouth False Insulin aspart (U-100) 100 unit/mL (3 mL) subcutaneou s pen [generic] 15 units Subcutaneous 1 time For dm 15 units 08/26 Inactiv e 2023 41967 69403 5 1 time Subcut aneous False Humalog KwikPen (U-100) Insulin 100 unit/mL subcutaneou s 15 units Subcutaneous 1 time For dm 15 units 08/27 Inactiv e 2023 82846 63505 9 1 time Subcut aneous False Linezolid 600 mg tablet [generic] 600 mg By Mouth Every 12 hours For MRSA INFECTION L BKA 600 mg 09/06 Active 2023 02179 77404 1 Every 12 hours By Mouth False Cefpodoxime 200 mg tablet [generic] 400 mg By Mouth Twice daily For MRSA INFECTION L BKA 400 mg 08/31 Inactiv e 2023 62846 56161 0 Twice daily By Mouth False Senna 8.6 mg tablet 8.6 mg By Mouth Once daily For Constipation 8.6 mg 2023 Active 2023 97960 45139 1 Once daily By Mouth False Humalog [...] abnormalities . Per Carb 2023 Active 2023 65646 68747 9 4 times a day Subcut aneous False Alendronate 35 mg tablet [generic] 08/31 Inactiv e 2023 38412 18663 5 Alendronate 35 mg tablet [generic] 35mg By Mouth Every week For Osteoporosis 35mg 2023 Active 2023 48868 07327 5 Every week By Mouth False Problems Code Description Start Date End Date Status D64.9 Anemia, unspecified 08/25/2024 Activ e I25.10 Atherosclerotic hear t disease of [place] coronary artery without angina pectoris 08/25/2024 Active [...] weight Temperature SpO2 Blood Sugar Pulse Respirations 82942 8 67.00 mm[Hg] - Sitting 145.00 mm[Hg] - Sitting 98.50 Forehead Scan 96.00 % 81.00/ min 16.00/min 58309 2 67.00 mm[Hg] - Sitting 145.00 mm[Hg] - Sitting 98.50 Tympanic 81.00/ min 16.00/min 70204 5 56.00 mm[Hg] - Sitting 142.00 mm[Hg] - Sitting 136.40 NI 100.20 Tympanic 96.00 % 92.00/ min 18.00/min 90667 004 34194 6 94977 004 90016 4 143.00 mg/dL 87223 004 47400 0 97.80 Tympanic 79900 005 17265 7 60.00 mm[Hg] - Sitting 140.00 mm[Hg] - Sitting 98.00 Tympanic 84.00/ min 18.00/min 69402 005 85699 0 63.00 mm[Hg] - Sitting 141.00 mm[Hg] - Sitting 98.20 Tympanic 92.00 % 63.00/ min 16.00/min 30326 005 64553 8 69.00 mm[Hg] - Sitting 106.00 mm[Hg] - Sitting 97.20 Tympanic 83938 005 03659 7 69.00/ min 16.00/min 27164 005 90441 3 69.00 mm[Hg] - Sitting 106.00 mm[Hg] - Sitting 98.20 Tympanic 69.00/ min 16.00/min 85459 005 56283 1 367.00 mg/dL 98558 005 23207 2 97.20 Tympanic 81057 005 38014 4 97.20 Tympanic 42667 005 75658 0 69.00 mm[Hg] - Sitting 106.00 mm[Hg] - Sitting 69.00/ min 90368 005 51280 3 452.00 mg/dL 13927 005 81095 3 452.00 mg/dL 25918 005 25687 5 352.00 mg/dL 29467 005 67395 3 352.00 mg/dL 88267 005 36929 7 98.20 Tympanic 13043 005 39607 3 101.00 mg/dL 22065 005 87219 8 101.00 mg/dL 96450 006 19563 4 66.00 mm[Hg] - Sitting 107.00 mm[Hg] - Sitting 98.00 Tympanic 66.00/ min 18.00/min 05910 006 67158 0 62.00 mm[Hg] - Sitting 162.00 mm[Hg] - Sitting 98.20 Tympanic 96.00 % 60.00/ min 16.00/min 46583 006 51644 4 62.00 mm[Hg] - Sitting 162.00 mm[Hg] - Sitting 98.00 Tympanic 70.00/ min 18.00/min 89194 006 09512 8 62.00 mm[Hg] - Sitting 162.00 mm[Hg] - Sitting 98.20 Tympanic 70.00/ min 18.00/min 17266 006 11750 2 66.00 mm[Hg] - Sitting 132.00 mm[Hg] - Sitting 98.60 Tympanic 74.00/ min 16.00/min 33198 006 60937 5 159.00 mg/dL 67452 006 70854 1 159.00 mg/dL 92396 006 45615 8 98.00 Tympanic 39071 006 64751 2 62.00 mm[Hg] - Sitting 162.00 mm[Hg] - Sitting 70.00/ min 97268 006 15279 7 264.00 mg/dL 33098 006 81777 7 264.00 mg/dL 79154 006 26927 4 196.00 mg/dL 92852 006 50813 3 98.20 Tympanic 40970 006 91629 6 271.00 mg/dL 68104 007 14125 3 97.20 Tympanic 88030 007 39755 2 63.00 mm[Hg] - Sitting 132.00 mm[Hg] - Sitting 98.50 Tympanic 94.00 % 66.00/ min 16.00/min 73902 007 35085 5 188.00 mg/dL 32052 007 95760 2 188.00 mg/dL 36219 007 24622 2 188.00 mg/dL 94512 007 31568 7 97.20 Tympanic 74480 007 89980 6 97.20 Tympanic 32037 007 19767 5 67.00 mm[Hg] - Sitting 152.00 mm[Hg] - Sitting 68.00/ min 65034 007 60332 0 141.00 mg/dL 62490 007 57592 3 141.00 mg/dL 58899 007 04667 1 366.00 mg/dL 34039 007 17633 7 366.00 mg/dL 12240 007 55839 7 98.00 Tympanic 61634 007 47749 6 324.00 mg/dL 22002 007 88295 3 98.00 Tympanic 32985 007 13088 7 324.00 mg/dL 99791 008 34296 0 98.00 Tympanic 83459 008 69239 2 97.90 Tympanic 50394 008 38509 0 98.20 Tympanic 99978 008 13495 0 73.00 mm[Hg] - Sitting 156.00 mm[Hg] - Sitting 98.60 Tympanic 99.00 % 66.00/ min 20.00/min 22139 008 57475 5 137.00 mg/dL 66747 008 97890 7 137.00 mg/dL 17266 008 94794 2 97.90 Tympanic 69899 008 23228 1 137.00 mg/dL 08744 008 14165 8 97.90 Tympanic 43742 008 00858 5 67.00 mm[Hg] - Sitting 124.00 /min 58852 008 50039 6 212.00 mg/dL 40489 008 48826 6 212.00 mg/dL 29489 008 61378 9 317.00 mg/dL 42969 008 16922 4 317.00 mg/dL 35145 008 44683 8 252.00 mg/dL 77821 008 78569 0 98.70 Tympanic 05308 008 08949 7 252.00 mg/dL 78778 008 22749 3 98.70 Tympanic 88708 009 86991 9 98.70 Tympanic 62948 009 12869 3 98.20 Tympanic 11025 009 17153 5 98.40 Tympanic 33233 009 96715 5 57.00 mm[Hg] - Sitting 129.00 mm[Hg] - Sitting 98.30 Tympanic 97.00 % 65.00/ min 18.00/min 66140 009 81320 1 255.00 mg/dL 22468 009 64853 4 255.00 mg/dL 85961 009 22855 5 98.20 Tympanic 70741 009 04642 0 255.00 mg/dL 33732 009 95020 0 98.20 Tympanic 08993 009 97168 4 63.00 mm[Hg] - Lying Down 102.00 mm[Hg] - Lying Down 58.00/ min 26883 009 51280 0 167.00 mg/dL 24304 009 24618 1 167.00 mg/dL 06077 009 01328 2 164.00 mg/dL 77387 009 37343 1 164.00 mg/dL 58270 009 96799 5 208.00 mg/dL 31881 010 56882 3 98.40 Tympanic 07917 010 80669 5 98.40 Tympanic 28184 010 95862 7 66 [place] [address]67 010 65644 4 60.00 mm[Hg] - Sitting 143.00 mm[Hg] - Sitting 98.90 Tympanic 98.00 % 67.00/ min 18.00/min 51982 010 20104 2 214.00 mg/dL 35859 010 24138 0 214.00 mg/dL 04061 010 17403 7 214.00 mg/dL 98716 010 38955 6 64.00 mm[Hg] - Sitting 110.00 mm[Hg] - Sitting 72.00/ min 28772 010 11962 7 98.40 Tympanic 91195 010 58338 1 212.00 mg/dL 91948 010 69209 2 212.00 mg/dL 97367 010 57784 1 115.00 mg/dL 71672 010 35464 0 115.00 mg/dL 32068 010 18814 4 98.50 Tympanic 71093 010 86039 4 150.00 mg/dL 75219 010 92527 0 150.00 mg/dL 41687 011 11449 9 98.60 Tympanic 92027 011 05598 1 67.00 mm[Hg] - Sitting 144.00 mm[Hg] - Sitting 98.20 Tympanic 98.00 % 61.00/ min 18.00/min 55006 011 85497 7 290.00 mg/dL 24253 011 39524 2 290.00 mg/dL 95413 011 67720 2 290.00 mg/dL 87454 011 35409 7 54.00 mm[Hg] - Sitting 136.00 mm[Hg] - Sitting 101.00 /min 37418 011 75076 7 98.60 Tympanic 55598 011 10140 5 240.00 mg/dL 68639 011 99993 1 240.00 mg/dL 39005 011 37868 1 156.00 mg/dL 34843 011 04379 9 156.00 mg/dL 69537 011 65323 0 97.80 Tympanic 64421 011 07910 8 343.00 mg/dL 83797 012 40102 9 97.90 Tympanic 24977 012 65274 2 466.00 mg/dL 99869 012 56208 1 466.00 mg/dL 50657 012 93062 3 466.00 mg/dL 16666 012 33001 8 97.90 Tympanic 49492 012 53003 8 56.00 mm[Hg] - Sitting 96.00 mm[Hg] - Sitting 61.00/ min 54268 012 38501 7 350.00 mg/dL 69565 012 28908 5 350.00 mg/dL 84287 012 03933 6 111.00 mg/dL 40389 012 36585 0 111.00 mg/dL 48905 012 19871 5 98.40 Tympanic 78097 012 34326 6 114.00 mg/dL 23484 013 83828 4 74.00 mm[Hg] - Sitting 112.00 mm[Hg] - Sitting 98.40 Tympanic 70.00/ min 18.00/min 54544 013 11467 8 244.00 mg/dL 35232 013 31547 7 244.00 mg/dL 97890 013 05875 1 244.00 mg/dL 36486 013 03007 1 98.20 Tympanic 23450 013 87336 7 72.00 mm[Hg] - Sitting 119.00 mm[Hg] - Sitting 76.00/ min 62249 013 32032 7 253.00 mg/dL 67289 013 70481 4 253.00 mg/dL 68657 013 08672 9 156.00 mg/dL 71174 013 40089 5 156.00 mg/dL 21795 013 03647 4 97.90 Tympanic 68347 013 16029 5 189.00 mg/dL 75813 014 14385 9 98.10 Tympanic 95846 014 16145 0 61.00 mm[Hg] - Sitting 139.00 mm[Hg] - Sitting 98.20 Forehead Scan 99.00 % 66.00/ min 18.00/min 05183 014 28330 3 169.00 mg/dL 51795 014 74324 3 98.10 Tympanic 68184 014 45613 3 75.00 mm[Hg] - Sitting 121.00 mm[Hg] - Sitting 71.00/ min 38618 014 57305 9 221.00 mg/dL 79573 014 06847 9 62.00 mg/dL 86145 014 28414 5 62.00 mg/dL 05803 014 09165 8 156.00 mg/dL 19926 014 54037 6 98.10 Tympanic 95822 014 93544 7 156.00 mg/dL 73411 015 79408 4 23534 015 37373 7 62.00 mm[Hg] - Sitting 142.00 mm[Hg] - Sitting 98.20 Tympanic 99.00 % 67.00/ min 18.00/min 48192 015 86528 9 120.00 mg/dL 13843 015 09727 7 98.00 Tympanic 56793 015 54883 2 82.00 mm[Hg] - Sitting 119.00 /min 82531 015 51919 9 110.00 mg/dL 04246 015 56861 6 104.00 mg/dL 72118 015 63843 0 100.00 mg/dL 92765 015 08839 2 98.10 Tympanic 015 47644 6 100.00 mg/dL Immunizations Vaccine Date Status COVID-19 09/20/2023 Completed Other 10/08/2023 Completed Shingles 05/27/2011 Completed Tetanus 04/13/2022 Completed TDaP 04/13/2022 Completed Shingles 2 10/05/2018 Completed
--- OUTSIDE RECORDS SUMMARY | 2024-10-03 11:12 | External Medical Summary | Continuity Of Care Document ---
Author Name Unknown Address [address] [address] Organization [facility] () Care Team Providers Care [employer] Name Role Phone DO Machado Amy Primary Care Provider [phone] Allergies Allergy Reaction Start Date End Date [...] 3 0.1 mL 08/29 Inactiv e 2023 76088 34297 0 1 time Intrad ermal False Tubersol 5 tub. unit/0.1 mL intradermal injection solution [Tuberculin PPD] 0.1mL Intradermal 1 time For PPD 2nd Step Give 2nd Step PPD Day 1 and Read results Day 3 (schedule 7 days after 1st READ) 0.1mL 09/08 Active 2023 51686 98479 0 1 time Intrad ermal False Humalog [...] order For Diabetes 08/25 Inactiv e 2023 77477 60273 9 4 times a day Subcut aneous False Aspirin 325 mg tablet [generic] 325 By Mouth Twice daily For Anticoagulati on 325 09/25 Active 2023 57556 88703 1 Twice daily By Mouth False Ferrous sulfate 325 mg (65 mg iron) tablet [generic] 325 By Mouth Once daily For anemia 325 2023 Active 2023 98598 83870 5 Once daily By Mouth False Linezolid 600 mg tablet [generic] 600 mg By Mouth Every 12 hours For MRSA INFECTION L BKA 600 mg 08/25 Inactiv e 2023 78038 62602 1 Every 12 hours By Mouth False Cefpodoxime 200 mg tablet [generic] 400 mg By Mouth Twice daily For MRSA INFECTION L BKA 400 mg 08/25 Inactiv e 2023 06277 87179 0 Twice daily By Mouth False Coenzyme Q10 100 mg tablet [generic] 100 mg By Mouth Once daily For SUPP 100 mg 2023 Active 2023 85400 81135 0 Once daily By Mouth False Levothyroxi ne 50 mcg tablet [generic] 50mcg By Mouth Once daily For hypothyroidis m 50mcg 2023 Active 2023 50774 10425 0 Once daily By Mouth False One A Day Men Complete 240 mcg-25 mcg-300 mcg tablet 1 tab By Mouth Once daily For supplement 1 tab 2023 Active 2023 82649 41676 1 Once daily By Mouth False Cholecalcif adalberto (vitamin D3) 50 mcg (2,000 unit) tablet [generic] 1 TAB By Mouth Once daily For SUPP 1 TAB 2023 Active 2023 08654 24121 1 Once daily By Mouth False Cetirizine 10 mg tablet [generic] 1 TAB By Mouth At bedtime For Allergies 1 TAB 2023 Active 2023 36907 26010 0 At bedtime By Mouth False Timolol maleate 0.25 % eye drops [generic] 1 drop Both Eyes Twice daily For glaucoma 1 drop 2023 0000 /0000 Active 2023 78938 38324 5 Twice daily Both Eyes False Alendronate 35 mg tablet [generic] 35mg By Mouth Every week For SIADH 35mg 08/31 Inactiv e 2023 76728 82567 5 Every week By Mouth False Lantus Solostar U-100 Insulin 100 unit/mL (3 mL) subcutaneou s pen 18 units Subcutaneous Every morning For DIABETES 18 units 08/25 Inactiv e 2023 51270 84112 0 Every morning Subcut aneous False Lantus Solostar U-100 Insulin 100 unit/mL (3 mL) subcutaneou s pen 18 units Subcutaneous Every morning For DIABETES 18 units 2023 Active 2023 91165 65681 0 Every morning Subcut aneous False Linezolid 600 mg tablet [generic] 600 mg By Mouth Every 12 hours For MRSA INFECTION L BKA 600 mg 08/28 Inactiv e 2023 33252 40591 1 Every 12 hours By Mouth False [...] order For Diabetes 08/31 Inactiv e 2023 48922 72719 9 4 times a day Subcut aneous False Cefpodoxime 200 mg tablet [generic] 400 mg By Mouth Twice daily For MRSA INFECTION L BKA 400 mg 08/28 Inactiv e 2023 81997 08068 0 Twice daily By Mouth False Brimonidine 0.1 % eye drops [generic] 1 drop Both Eyes Twice daily For glaucoma 1 drop 2023 Active 2023 30398 98774 0 Twice daily Both Eyes False Metoprolol succinate ER 50 mg tablet,exte nded release 24 hr [generic] 50 mg By Mouth Once daily HOLD FOR SBP <100, or pulse <60 For HTN 50 mg 2023 Active 2023 06753 99345 1 Once daily By Mouth False Amlodipine 2.5 mg tablet [generic] 2.5 mg By Mouth Once daily For HTN 2.5 mg 2023 Active 2023 09226 82906 5 Once daily By Mouth False Docusate sodium 100 mg capsule [generic] 100mg By Mouth Twice daily as needed For constipation HOLD FOR LOOSE STOOLS 100mg 2023 Active 2023 79706 29235 1 Twice daily as needed By Mouth False Atorvastati n 40 mg tablet [generic] 40mg By Mouth Once daily For HDL 40mg 08/26 Inactiv e 2023 24533 67872 5 Once daily By Mouth False Tylenol 325 mg tablet 2 tabs By Mouth Every 4 hours as needed For Pain DO NOT EXCEED 3000 MG APAP/24 Hours 2 tabs 2023 Active 2023 23223 22884 0 Every 4 hours as needed By Mouth False Tylenol 325 mg tablet 2 tabs By Mouth Every 4 hours as needed For Fever >100 DO NOT EXCEED 3000 MG APAP/24 Hours 2 tabs 2023 Active 2023 93008 18752 0 Every 4 hours as needed By Mouth False Dulcolax (bisacodyl) 10 mg rectal suppository One Suppository per rectum PRN if Milk of Magnisia ineffective. Give on day 5 of no BM 1 sup 2023 Active 2023 90182 74448 1 Daily as needed Rectal False Fleet Enema 19 gram-7 gram/118 mL Administer per rectum PRN one time if dulcolax suppository not effective. Give on day 6 of no BM 1 2023 Active 2023 70450 11845 6 Daily as needed Rectal False Dextrose 50 % in water (D50W) intravenous solution [generic] Dextrose 50% evonne 20-50 ml (slow push) Intravenous if Glucagon not effective after 15 minutes. CALL 911 for ED Evaluation. 50% evonne 2023 Active 2023 76906 10598 9 Intrav enous False Glucagon (HCl) Emergency Kit 1 mg solution for injection Administer Glucagon 1 mg Intramuscular if 15 minutes after GLucose Gel is administered Glucose remains less than 70 1 mg 2023 Active 2023 55095 47712 2 Intram uscula r False Glucose Gel 40 % oral gel [Dextrose] PRN If resident is unable to swallow (with or without symptoms) and Glucose results less than 70 give GLucose 40% Gel 1 tube orally - Recheck Glucose 15 minutes after administratio n. 1 tube 2023 Active 2023 44519 05326 8 By Mouth False Milk of Magnesia 400 mg/5 mL oral suspension [Magnesium hydroxide] PRN 30ml By Mouth Daily as needed for constipation one time daily if no BM, on day 4 of no BM (PRN refer to instructions) For Constipation 30 mL 2023 Active 2023 40436 54343 6 Daily as needed By Mouth False Atorvastati n 40 mg tablet [generic] 08/26 Inactiv e 2023 13761 63827 5 Atorvastati n 40 mg tablet [generic] 40mg By Mouth Once daily For HDL 40mg 2023 Active 2023 41283 98675 5 Once daily By Mouth False Insulin aspart (U-100) 100 unit/mL (3 mL) subcutaneou s pen [generic] 15 units Subcutaneous 1 time For dm 15 units 08/26 Inactiv e 2023 63514 52266 5 1 time Subcut aneous False Humalog KwikPen (U-100) Insulin 100 unit/mL subcutaneou s 15 units Subcutaneous 1 time For dm 15 units 08/27 Inactiv e 2023 13839 18770 9 1 time Subcut aneous False Linezolid 600 mg tablet [generic] 600 mg By Mouth Every 12 hours For MRSA INFECTION L BKA 600 mg 09/06 Inactiv e 2023 84785 24822 1 Every 12 hours By Mouth False Cefpodoxime 200 mg tablet [generic] 400 mg By Mouth Twice daily For MRSA INFECTION L BKA 400 mg 08/31 Inactiv e 2023 52843 40870 0 Twice daily By Mouth False Senna 8.6 mg tablet 8.6 mg By Mouth Once daily For Constipation 8.6 mg 2023 Active 2023 47249 67285 1 Once daily By Mouth False Humalog [...] abnormalities . Per Carb 2023 Active 2023 88391 68185 9 4 times a day Subcut aneous False Alendronate 35 mg tablet [generic] 08/31 Inactiv e 2023 69476 72017 5 Alendronate 35 mg tablet [generic] 35mg By Mouth Every week For Osteoporosis 35mg 2023 Active 2023 20483 32316 5 Every week By Mouth False ProSource 10 gram-100 kcal/30 mL oral liquid 30 ml By Mouth Once daily For wound healing 30 ml 2023 Active 2023 31361 80920 2 Once daily By Mouth False Clotrimazol e 1 % topical cream [generic] 1 applicaiton Topical Twice daily For tinea, apply to groin rash after cleansing and throughouly drying. Can discontinue order 3 days after rash resolves. 1 applica stacy 09/19 Active 2023 66357 45469 0 Twice daily Topica l False Humalog KwikPen (U-100) Insulin 100 unit/mL subcutaneou s 08/31 Inactiv e 2023 86087 18579 9 MediHoney HCS 4 1/2in X 4 1/2in bandage Cleanse area with NSS, apply one medihoney hydrocolloid dressing, non adherent dressing, kerlix secure with paper tape daily. For wound stage III 1 2023 Active 2023 49487 31007 1 Once daily Topica l False Problems [...] weight Temperature SpO2 Blood Sugar Pulse Respirations 60132 8 67.00 mm[Hg] - Sitting 145.00 mm[Hg] - Sitting 98.50 Forehead Scan 96.00 % 81.00/ min 16.00/min 004 47229 2 67.00 mm[Hg] - Sitting 145.00 mm[Hg] - Sitting 98.50 Tympanic 81.00/ min 16.00/min 004 86246 5 56.00 mm[Hg] - Sitting 142.00 mm[Hg] - Sitting 136.40 NI 100.20 Tympanic 96.00 % 92.00/ min 18.00/min 11812 004 78700 6 23193 004 64428 4 143.00 mg/dL 00827 0 97.80 Tympanic 005 06389 7 60.00 mm[Hg] - Sitting 140.00 mm[Hg] - Sitting 98.00 Tympanic 84.00/ min 18.00/min 84215 005 47696 0 63.00 mm[Hg] - Sitting 141.00 mm[Hg] - Sitting 98.20 Tympanic 92.00 % 63.00/ min 16.00/min 29562 005 72298 8 69.00 mm[Hg] - Sitting 106.00 mm[Hg] - Sitting 97.20 Tympanic 005 03443 7 69.00/ min 16.00/min 39944 005 68961 3 69.00 mm[Hg] - Sitting 106.00 mm[Hg] - Sitting 98.20 Tympanic 69.00/ min 16.00/min 87967 005 96135 1 367.00 mg/dL 32916 005 28990 2 97.20 Tympanic 86514 005 51069 4 97.20 Tympanic 79750 005 76942 0 69.00 mm[Hg] - Sitting 106.00 mm[Hg] - Sitting 69.00/ min 22181 005 29927 3 452.00 mg/dL 95179 005 22018 3 452.00 mg/dL 18893 005 42554 5 352.00 mg/dL 56503 005 93179 3 352.00 mg/dL 08001 005 88629 7 98.20 Tympanic 62402 005 3 101.00 mg/dL 31262 005 8 101.00 mg/dL 16895 006 20266 4 66.00 mm[Hg] - Sitting 107.00 mm[Hg] - Sitting 98.00 Tympanic 66.00/ min 18.00/min 04454 006 91253 0 62.00 mm[Hg] - Sitting 162.00 mm[Hg] - Sitting 98.20 Tympanic 96.00 % 60.00/ min 16.00/min 13421 006 04041 4 62.00 mm[Hg] - Sitting 162.00 mm[Hg] - Sitting 98.00 Tympanic 70.00/ min 18.00/min 83856 006 99801 8 62.00 mm[Hg] - Sitting 162.00 mm[Hg] - Sitting 98.20 Tympanic 70.00/ min 18.00/min 73872 006 75078 2 66.00 mm[Hg] - Sitting 132.00 mm[Hg] - Sitting 98.60 Tympanic 74.00/ min 16.00/min 22013 006 50061 5 159.00 mg/dL 62334 006 86612 1 159.00 mg/dL 50791 006 11154 8 98.00 Tympanic 38077 006 67993 2 62.00 mm[Hg] - Sitting 162.00 mm[Hg] - Sitting 70.00/ min 73627 006 65492 7 264.00 mg/dL Immunizations Vaccine Date Status COVID-19 09/20/2023 Completed Other 10/08/2023 Completed Shingles 05/27/2011 Completed Tetanus 04/13/2022 Completed TDaP 04/13/2022 Completed Shingles 2 10/05/2018 Completed
--- OUTSIDE RECORDS SUMMARY | 2024-10-03 11:12 | External Medical Summary | Continuity Of Care Document ---
Author Name Unknown Address [address] [address] Organization [facility] () Care Team Providers [employer] Name Role Phone DO Machado Amy Primary Care Provider [phone] Allergies Allergy Reaction Start Date End Date [...] 3 0.1 mL 08/29 Inactiv e 2023 38224 27652 0 1 time Intrad ermal False Tubersol 5 tub. unit/0.1 mL intradermal injection solution [Tuberculin PPD] 0.1mL Intradermal 1 time For PPD 2nd Step Give 2nd Step PPD Day 1 and Read results Day 3 (schedule 7 days after 1st READ) 0.1mL 09/08 Active 2023 41745 12812 0 1 time Intrad ermal False Humalog [...] order For Diabetes 08/25 Inactiv e 2023 18362 54418 9 4 times a day Subcut aneous False Aspirin 325 mg tablet [generic] 325 By Mouth Twice daily For Anticoagulati on 325 09/25 Active 2023 71680 07126 1 Twice daily By Mouth False Ferrous sulfate 325 mg (65 mg iron) tablet [generic] 325 By Mouth Once daily For anemia 325 2023 Active 2023 38326 18108 5 Once daily By Mouth False Linezolid 600 mg tablet [generic] 600 mg By Mouth Every 12 hours For MRSA INFECTION L BKA 600 mg 08/25 Inactiv e 2023 80874 25100 1 Every 12 hours By Mouth False Cefpodoxime 200 mg tablet [generic] 400 mg By Mouth Twice daily For MRSA INFECTION L BKA 400 mg 08/25 Inactiv e 2023 49708 63227 0 Twice daily By Mouth False Coenzyme Q10 100 mg tablet [generic] 100 mg By Mouth Once daily For SUPP 100 mg 2023 Active 2023 09503 54465 0 Once daily By Mouth False Levothyroxi ne 50 mcg tablet [generic] 50mcg By Mouth Once daily For hypothyroidis m 50mcg 2023 Active 2023 08379 10507 0 Once daily By Mouth False One A Day Men Complete 240 mcg-25 mcg-300 mcg tablet 1 tab By Mouth Once daily For supplement 1 tab 2023 Active 2023 33183 31923 1 Once daily By Mouth False Cholecalcif adalberto (vitamin D3) 50 mcg (2,000 unit) tablet [generic] 1 TAB By Mouth Once daily For SUPP 1 TAB 2023 Active 2023 50141 67215 1 Once daily By Mouth False Cetirizine 10 mg tablet [generic] 1 TAB By Mouth At bedtime For Allergies 1 TAB 2023 Active 2023 23482 22558 0 At bedtime By Mouth False Timolol maleate 0.25 % eye drops [generic] 1 drop Both Eyes Twice daily For glaucoma 1 drop 2023 0000 /0000 Active 2023 82680 78888 5 Twice daily Both Eyes False Alendronate 35 mg tablet [generic] 35mg By Mouth Every week For SIADH 35mg 08/31 Inactiv e 2023 48470 28101 5 Every week By Mouth False Lantus Solostar U-100 Insulin 100 unit/mL (3 mL) subcutaneou s pen 18 units Subcutaneous Every morning For DIABETES 18 units 08/25 Inactiv e 2023 54204 50688 0 Every morning Subcut aneous False Lantus Solostar U-100 Insulin 100 unit/mL (3 mL) subcutaneou s pen 18 units Subcutaneous Every morning For DIABETES 18 units 2023 Active 2023 67605 99298 0 Every morning Subcut aneous False Linezolid 600 mg tablet [generic] 600 mg By Mouth Every 12 hours For MRSA INFECTION L BKA 600 mg 08/28 Inactiv e 2023 94727 75715 1 Every 12 hours By Mouth False [...] order For Diabetes 08/31 Inactiv e 2023 97331 85174 9 4 times a day Subcut aneous False Cefpodoxime 200 mg tablet [generic] 400 mg By Mouth Twice daily For MRSA INFECTION L BKA 400 mg 08/28 Inactiv e 2023 90359 55130 0 Twice daily By Mouth False Brimonidine 0.1 % eye drops [generic] 1 drop Both Eyes Twice daily For glaucoma 1 drop 2023 Active 2023 51445 36634 0 Twice daily Both Eyes False Metoprolol succinate ER 50 mg tablet,exte nded release 24 hr [generic] 50 mg By Mouth Once daily HOLD FOR SBP <100, or pulse <60 For HTN 50 mg 2023 Active 2023 11568 64287 1 Once daily By Mouth False Amlodipine 2.5 mg tablet [generic] 2.5 mg By Mouth Once daily For HTN 2.5 mg 2023 Active 2023 78080 92101 5 Once daily By Mouth False Docusate sodium 100 mg capsule [generic] 100mg By Mouth Twice daily as needed For constipation HOLD FOR LOOSE STOOLS 100mg 2023 Active 2023 92650 14324 1 Twice daily as needed By Mouth False Atorvastati n 40 mg tablet [generic] 40mg By Mouth Once daily For HDL 40mg 08/26 Inactiv e 2023 50830 25581 5 Once daily By Mouth False Tylenol 325 mg tablet 2 tabs By Mouth Every 4 hours as needed For Pain DO NOT EXCEED 3000 MG APAP/24 Hours 2 tabs 2023 Active 2023 68767 41540 0 Every 4 hours as needed By Mouth False Tylenol 325 mg tablet 2 tabs By Mouth Every 4 hours as needed For Fever >100 DO NOT EXCEED 3000 MG APAP/24 Hours 2 tabs 2023 Active 2023 87933 60436 0 Every 4 hours as needed By Mouth False Dulcolax (bisacodyl) 10 mg rectal suppository One Suppository per rectum PRN if Milk of Magnisia ineffective. Give on day 5 of no BM 1 sup 2023 Active 2023 87772 87875 1 Daily as needed Rectal False Fleet Enema 19 gram-7 gram/118 mL Administer per rectum PRN one time if dulcolax suppository not effective. Give on day 6 of no BM 1 2023 Active 2023 40842 61349 6 Daily as needed Rectal False Dextrose 50 % in water (D50W) intravenous solution [generic] Dextrose 50% evonne 20-50 ml (slow push) Intravenous if Glucagon not effective after 15 minutes. CALL 911 for ED Evaluation. 50% evonne 2023 Active 2023 92626 12893 9 Intrav enous False Glucagon (HCl) Emergency Kit 1 mg solution for injection Administer Glucagon 1 mg Intramuscular if 15 minutes after GLucose Gel is administered Glucose remains less than 70 1 mg 2023 Active 2023 32705 24691 2 Intram uscula r False Glucose Gel 40 % oral gel [Dextrose] PRN If resident is unable to swallow (with or without symptoms) and Glucose results less than 70 give GLucose 40% Gel 1 tube orally - Recheck Glucose 15 minutes after administratio n. 1 tube 2023 Active 2023 84811 59752 8 By Mouth False Milk of Magnesia 400 mg/5 mL oral suspension [Magnesium hydroxide] PRN 30ml By Mouth Daily as needed for constipation one time daily if no BM, on day 4 of no BM (PRN refer to instructions) For Constipation 30 mL 2023 Active 2023 41945 24155 6 Daily as needed By Mouth False Atorvastati n 40 mg tablet [generic] 08/26 Inactiv e 2023 55107 22401 5 Atorvastati n 40 mg tablet [generic] 40mg By Mouth Once daily For HDL 40mg 2023 Active 2023 98447 39581 5 Once daily By Mouth False Insulin aspart (U-100) 100 unit/mL (3 mL) subcutaneou s pen [generic] 15 units Subcutaneous 1 time For dm 15 units 08/26 Inactiv e 2023 95208 34668 5 1 time Subcut aneous False Humalog KwikPen (U-100) Insulin 100 unit/mL subcutaneou s 15 units Subcutaneous 1 time For dm 15 units 08/27 Inactiv e 2023 09101 66581 9 1 time Subcut aneous False Linezolid 600 mg tablet [generic] 600 mg By Mouth Every 12 hours For MRSA INFECTION L BKA 600 mg 09/06 Active 2023 26947 87968 1 Every 12 hours By Mouth False Cefpodoxime 200 mg tablet [generic] 400 mg By Mouth Twice daily For MRSA INFECTION L BKA 400 mg 08/31 Inactiv e 2023 39473 68834 0 Twice daily By Mouth False Senna 8.6 mg tablet 8.6 mg By Mouth Once daily For Constipation 8.6 mg 2023 Active 2023 25003 84323 1 Once daily By Mouth False Humalog [...] abnormalities . 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 08/25/2024 Active [...] Temperature SpO2 Blood Sugar Pulse Respirations 004 59225 8 67.00 mm[Hg] - Sitting 145.00 mm[Hg] - Sitting 98.50 Forehead Scan 96.00 % 81.00/ min 16.00/min 08026 004 59537 2 67.00 mm[Hg] - Sitting 145.00 mm[Hg] - Sitting 98.50 Tympanic 81.00/ min 16.00/min 95539 004 00298 5 56.00 mm[Hg] - Sitting 142.00 mm[Hg] - Sitting 136.40 NI 100.20 Tympanic 96.00 % 92.00/ min 18.00/min 99567 004 45678 6 44440 004 08406 4 143.00 mg/dL 26273 004 40263 0 97.80 Tympanic 86791 005 33279 7 60.00 mm[Hg] - Sitting 140.00 mm[Hg] - Sitting 98.00 Tympanic 84.00/ min 18.00/min 70954 005 64927 0 63.00 mm[Hg] - Sitting 141.00 mm[Hg] - Sitting 98.20 Tympanic 92.00 % 63.00/ min 16.00/min 82806 005 22828 8 69.00 mm[Hg] - Sitting 106.00 mm[Hg] - Sitting 97.20 Tympanic 91729 005 27007 7 69.00/ min 16.00/min 74616 005 32974 3 69.00 mm[Hg] - Sitting 106.00 mm[Hg] - Sitting 98.20 Tympanic 69.00/ min 16.00/min 85944 005 82090 1 367.00 mg/dL 69578 005 77229 2 97.20 Tympanic 11629 005 47708 4 97.20 Tympanic 16141 005 37597 0 69.00 mm[Hg] - Sitting 106.00 mm[Hg] - Sitting 69.00/ min 54418 005 22134 3 452.00 mg/dL 53295 005 98889 3 452.00 mg/dL 56099 005 78934 5 352.00 mg/dL 76706 005 81003 3 352.00 mg/dL 66728 005 73046 7 98.20 Tympanic 31306 005 08373 3 101.00 mg/dL 34985 005 8 101.00 mg/dL 12059 006 95641 4 66.00 mm[Hg] - Sitting 107.00 mm[Hg] - Sitting 98.00 Tympanic 66.00/ min 18.00/min 25749 006 52327 0 62.00 mm[Hg] - Sitting 162.00 mm[Hg] - Sitting 98.20 Tympanic 96.00 % 60.00/ min 16.00/min 54799 006 37172 4 62.00 mm[Hg] - Sitting 162.00 mm[Hg] - Sitting 98.00 Tympanic 70.00/ min 18.00/min 59457 006 70310 8 62.00 mm[Hg] - Sitting 162.00 mm[Hg] - Sitting 98.20 Tympanic 70.00/ min 18.00/min 94703 006 30866 2 66.00 mm[Hg] - Sitting 132.00 mm[Hg] - Sitting 98.60 Tympanic 74.00/ min 16.00/min 18319 006 58719 5 159.00 mg/dL 96545 006 08853 1 159.00 mg/dL 46581 006 50454 8 98.00 Tympanic 36370 006 27963 2 62.00 mm[Hg] - Sitting 162.00 mm[Hg] - Sitting 70.00/ min 54669 006 05327 7 264.00 mg/dL 13162 006 44779 7 264.00 mg/dL 32611 006 83100 4 196.00 mg/dL 54995 006 82618 3 98.20 Tympanic 15442 006 87326 6 271.00 mg/dL 53854 007 26811 3 97.20 Tympanic 33806 007 57745 2 63.00 mm[Hg] - Sitting 132.00 mm[Hg] - Sitting 98.50 Tympanic 94.00 % 66.00/ min 16.00/min 50363 007 64631 5 188.00 mg/dL 35124 007 40579 2 188.00 mg/dL 58901 007 41848 2 188.00 mg/dL 26594 007 73468 7 97.20 Tympanic 37990 007 92573 6 97.20 Tympanic 94670 007 75777 5 67.00 mm[Hg] - Sitting 152.00 mm[Hg] - Sitting 68.00/ min 77837 007 09970 0 141.00 mg/dL 76604 007 53507 3 141.00 mg/dL 23439 007 51432 1 366.00 mg/dL 91992 007 06688 7 366.00 mg/dL 23885 007 10903 7 98.00 Tympanic 85584 007 18159 6 324.00 mg/dL 58750 007 14491 3 98.00 Tympanic 37505 007 57369 7 324.00 mg/dL 73772 008 72517 0 98.00 Tympanic 14085 008 10067 2 97.90 Tympanic 28460 008 18444 0 98.20 Tympanic 90158 008 49832 0 73.00 mm[Hg] - Sitting 156.00 mm[Hg] - Sitting 98.60 Tympanic 99.00 % 66.00/ min 20.00/min 72511 008 91815 5 137.00 mg/dL 98627 008 54649 7 137.00 mg/dL 74257 008 44958 2 97.90 Tympanic 05906 008 13328 1 137.00 mg/dL 39647 008 64189 8 97.90 Tympanic 33212 008 93007 5 67.00 mm[Hg] - Sitting 124.00 /min 69043 008 55530 6 212.00 mg/dL 71236 008 50367 6 212.00 mg/dL 02303 008 78780 9 317.00 mg/dL 70470 008 07115 4 317.00 mg/dL 91220 008 85256 8 252.00 mg/dL 49917 008 31426 0 98.70 Tympanic 55645 008 71072 7 252.00 mg/dL 41495 008 35285 3 98.70 Tympanic 42530 009 66001 9 98.70 Tympanic 96841 009 37156 3 98.20 Tympanic 34069 009 54544 5 98.40 Tympanic 38411 009 90139 5 57.00 mm[Hg] - Sitting 129.00 mm[Hg] - Sitting 98.30 Tympanic 97.00 % 65.00/ min 18.00/min 00951 009 26538 1 255.00 mg/dL 33812 009 69258 4 255.00 mg/dL 97003 009 66845 5 98.20 Tympanic 19874 009 46344 0 255.00 mg/dL 61099 009 44683 0 98.20 Tympanic 89306 009 80381 4 63.00 mm[Hg] - Lying Down 102.00 mm[Hg] - Lying Down 58.00/ min 24983 009 70785 0 167.00 mg/dL 80624 009 36640 1 167.00 mg/dL 29397 009 33966 2 164.00 mg/dL 77891 009 72425 1 164.00 mg/dL 36641 009 03793 5 208.00 mg/dL 78288 010 95415 3 98.40 Tympanic 26548 010 36095 5 98.40 Tympanic 87956 010 32928 7 66 [place] [address]70 010 13100 4 60.00 mm[Hg] - Sitting 143.00 mm[Hg] - Sitting 98.90 Tympanic 98.00 % 67.00/ min 18.00/min 12179 010 33375 2 214.00 mg/dL 92788 010 02916 0 214.00 mg/dL 06733 010 89457 7 214.00 mg/dL 67280 010 37521 6 64.00 mm[Hg] - Sitting 110.00 mm[Hg] - Sitting 72.00/ min 02602 010 84988 7 98.40 Tympanic 17510 010 24070 1 212.00 mg/dL 27977 010 03127 2 212.00 mg/dL 74135 010 96175 1 115.00 mg/dL 49344 010 56393 0 115.00 mg/dL 15837 010 61168 4 98.50 Tympanic 62254 010 05112 4 150.00 mg/dL 29804 010 15574 0 150.00 mg/dL 20832 011 66630 9 98.60 Tympanic 74202 011 26487 1 67.00 mm[Hg] - Sitting 144.00 mm[Hg] - Sitting 98.20 Tympanic 98.00 % 61.00/ min 18.00/min 69245 011 43868 7 290.00 mg/dL 59645 011 75197 2 290.00 mg/dL 37153 011 51556 2 290.00 mg/dL 71918 011 42340 7 54.00 mm[Hg] - Sitting 136.00 mm[Hg] - Sitting 101.00 /min 82863 011 37327 7 98.60 Tympanic 69126 011 26503 5 240.00 mg/dL 70360 011 32827 1 240.00 mg/dL 17482 011 84296 1 156.00 mg/dL 38648 011 67438 9 156.00 mg/dL 02244 011 50131 0 97.80 Tympanic 29194 011 55402 8 343.00 mg/dL 69757 012 34869 9 97.90 Tympanic 99697 012 78299 2 466.00 mg/dL 93404 012 66399 1 466.00 mg/dL 20244 012 19907 3 466.00 mg/dL 75172 012 31412 8 97.90 Tympanic 20619 012 83868 8 56.00 mm[Hg] - Sitting 96.00 mm[Hg] - Sitting 61.00/ min 39132 012 68631 7 350.00 mg/dL 05131 012 61890 5 350.00 mg/dL 67591 012 71398 6 111.00 mg/dL 47443 012 55661 0 111.00 mg/dL 23500 012 90184 5 98.40 Tympanic 85918 012 68650 6 114.00 mg/dL 20238 013 01817 4 74.00 mm[Hg] - Sitting 112.00 mm[Hg] - Sitting 98.40 Tympanic 70.00/ min 18.00/min 76161 013 12502 8 244.00 mg/dL 17859 013 62899 7 244.00 mg/dL 81367 013 77926 1 244.00 mg/dL 32273 013 00568 1 98.20 Tympanic 14611 013 01818 7 72.00 mm[Hg] - Sitting 119.00 mm[Hg] - Sitting 76.00/ min 74969 013 19077 7 253.00 mg/dL 77418 013 92641 4 253.00 mg/dL 14414 013 16990 9 156.00 mg/dL 06135 013 03591 5 156.00 mg/dL 99683 013 32422 4 97.90 Tympanic 06479 013 09324 5 189.00 mg/dL 86110 014 26913 9 98.10 Tympanic 15837 014 84756 0 61.00 mm[Hg] - Sitting 139.00 mm[Hg] - Sitting 98.20 Forehead Scan 99.00 % 66.00/ min 18.00/min 32693 014 33170 3 169.00 mg/dL 57332 014 18320 3 98.10 Tympanic 13944 014 14103 3 75.00 mm[Hg] - Sitting 121.00 mm[Hg] - Sitting 71.00/ min 54036 014 21525 9 221.00 mg/dL 39758 014 30416 9 62.00 mg/dL 06693 014 73318 5 62.00 mg/dL 97134 014 39787 8 156.00 mg/dL 61854 014 52124 6 98.10 Tympanic 87396 014 06338 7 156.00 mg/dL 49718 015 12073 4 69300 015 72339 7 62.00 mm[Hg] - Sitting 142.00 mm[Hg] - Sitting 98.20 Tympanic 99.00 % 67.00/ min 18.00/min 78142 015 61760 9 120.00 mg/dL 015 48497 7 98.00 Tympanic 015 12776 2 82.00 mm[Hg] - Sitting 119.00 /min 015 09100 9 110.00 mg/dL 73691 015 97755 6 104.00 mg/dL Immunizations Vaccine Date Status COVID-19 09/20/2023 Completed Other 10/08/2023 Completed Shingles 05/27/2011 Completed Tetanus 04/13/2022 Completed TDaP 04/13/2022 Completed Shingles 2 10/05/2018 Completed
--- OUTSIDE RECORDS SUMMARY | 2024-10-03 11:12 | External Medical Summary | Continuity Of Care Document ---
Author Name Unknown Address [address] [address] Organization [facility] () Care Team Providers Care [employer] Mechanic Name Role Phone DO Machado Amy Primary Care Provider [phone] Allergies Allergy Reaction Start Date End Date [...] 3 0.1 mL 08/29 Inactiv e 2023 69411 34493 0 1 time Intrad ermal False Tubersol 5 tub. unit/0.1 mL intradermal injection solution [Tuberculin PPD] 0.1mL Intradermal 1 time For PPD 2nd Step Give 2nd Step PPD Day 1 and Read results Day 3 (schedule 7 days after 1st READ) 0.1mL 09/08 Active 2023 31777 09725 0 1 time Intrad ermal False Humalog [...] order For Diabetes 08/25 Inactiv e 2023 68524 97321 9 4 times a day Subcut aneous False Aspirin 325 mg tablet [generic] 325 By Mouth Twice daily For Anticoagulati on 325 09/25 Active 2023 55651 03348 1 Twice daily By Mouth False Ferrous sulfate 325 mg (65 mg iron) tablet [generic] 325 By Mouth Once daily For anemia 325 2023 Active 2023 89334 27543 5 Once daily By Mouth False Linezolid 600 mg tablet [generic] 600 mg By Mouth Every 12 hours For MRSA INFECTION L BKA 600 mg 08/25 Inactiv e 2023 34863 35818 1 Every 12 hours By Mouth False Cefpodoxime 200 mg tablet [generic] 400 mg By Mouth Twice daily For MRSA INFECTION L BKA 400 mg 08/25 Inactiv e 2023 34165 88874 0 Twice daily By Mouth False Coenzyme Q10 100 mg tablet [generic] 100 mg By Mouth Once daily For SUPP 100 mg 2023 Active 2023 21737 37734 0 Once daily By Mouth False Levothyroxi ne 50 mcg tablet [generic] 50mcg By Mouth Once daily For hypothyroidis m 50mcg 2023 Active 2023 57086 13773 0 Once daily By Mouth False One A Day Men Complete 240 mcg-25 mcg-300 mcg tablet 1 tab By Mouth Once daily For supplement 1 tab 2023 Active 2023 52780 89974 1 Once daily By Mouth False Cholecalcif adalberto (vitamin D3) 50 mcg (2,000 unit) tablet [generic] 1 TAB By Mouth Once daily For SUPP 1 TAB 2023 Active 2023 27631 84026 1 Once daily By Mouth False Cetirizine 10 mg tablet [generic] 1 TAB By Mouth At bedtime For Allergies 1 TAB 2023 Active 2023 43328 21153 0 At bedtime By Mouth False Timolol maleate 0.25 % eye drops [generic] 1 drop Both Eyes Twice daily For glaucoma 1 drop 2023 0000 /0000 Active 2023 29526 05177 5 Twice daily Both Eyes False Alendronate 35 mg tablet [generic] 35mg By Mouth Every week For SIADH 35mg 08/31 Inactiv e 2023 88438 42670 5 Every week By Mouth False Lantus Solostar U-100 Insulin 100 unit/mL (3 mL) subcutaneou s pen 18 units Subcutaneous Every morning For DIABETES 18 units 08/25 Inactiv e 2023 10551 80664 0 Every morning Subcut aneous False Lantus Solostar U-100 Insulin 100 unit/mL (3 mL) subcutaneou s pen 18 units Subcutaneous Every morning For DIABETES 18 units 2023 Active 2023 88221 61090 0 Every morning Subcut aneous False Linezolid 600 mg tablet [generic] 600 mg By Mouth Every 12 hours For MRSA INFECTION L BKA 600 mg 08/28 Inactiv e 2023 92955 01659 1 Every 12 hours By Mouth False [...] order For Diabetes 08/31 Inactiv e 2023 73148 44898 9 4 times a day Subcut aneous False Cefpodoxime 200 mg tablet [generic] 400 mg By Mouth Twice daily For MRSA INFECTION L BKA 400 mg 08/28 Inactiv e 2023 10295 99681 0 Twice daily By Mouth False Brimonidine 0.1 % eye drops [generic] 1 drop Both Eyes Twice daily For glaucoma 1 drop 2023 Active 2023 17989 42444 0 Twice daily Both Eyes False Metoprolol succinate ER 50 mg tablet,exte nded release 24 hr [generic] 50 mg By Mouth Once daily HOLD FOR SBP <100, or pulse <60 For HTN 50 mg 2023 Active 2023 99255 43174 1 Once daily By Mouth False Amlodipine 2.5 mg tablet [generic] 2.5 mg By Mouth Once daily For HTN 2.5 mg 2023 Active 2023 71194 21295 5 Once daily By Mouth False Docusate sodium 100 mg capsule [generic] 100mg By Mouth Twice daily as needed For constipation HOLD FOR LOOSE STOOLS 100mg 2023 Active 2023 91224 07465 1 Twice daily as needed By Mouth False Atorvastati n 40 mg tablet [generic] 40mg By Mouth Once daily For HDL 40mg 08/26 Inactiv e 2023 42519 45554 5 Once daily By Mouth False Tylenol 325 mg tablet 2 tabs By Mouth Every 4 hours as needed For Pain DO NOT EXCEED 3000 MG APAP/24 Hours 2 tabs 2023 Active 2023 09532 68623 0 Every 4 hours as needed By Mouth False Tylenol 325 mg tablet 2 tabs By Mouth Every 4 hours as needed For Fever >100 DO NOT EXCEED 3000 MG APAP/24 Hours 2 tabs 2023 Active 2023 49333 64171 0 Every 4 hours as needed By Mouth False Dulcolax (bisacodyl) 10 mg rectal suppository One Suppository per rectum PRN if Milk of Magnisia ineffective. Give on day 5 of no BM 1 sup 2023 Active 2023 61793 72322 1 Daily as needed Rectal False Fleet Enema 19 gram-7 gram/118 mL Administer per rectum PRN one time if dulcolax suppository not effective. Give on day 6 of no BM 1 2023 Active 2023 99460 91949 6 Daily as needed Rectal False Dextrose 50 % in water (D50W) intravenous solution [generic] Dextrose 50% evonne 20-50 ml (slow push) Intravenous if Glucagon not effective after 15 minutes. CALL 911 for ED Evaluation. 50% evonne 2023 Active 2023 20193 17087 9 Intrav enous False Glucagon (HCl) Emergency Kit 1 mg solution for injection Administer Glucagon 1 mg Intramuscular if 15 minutes after GLucose Gel is administered Glucose remains less than 70 1 mg 2023 Active 2023 99491 18376 2 Intram uscula r False Glucose Gel 40 % oral gel [Dextrose] PRN If resident is unable to swallow (with or without symptoms) and Glucose results less than 70 give GLucose 40% Gel 1 tube orally - Recheck Glucose 15 minutes after administratio n. 1 tube 2023 Active 2023 39924 66651 8 By Mouth False Milk of Magnesia 400 mg/5 mL oral suspension [Magnesium hydroxide] PRN 30ml By Mouth Daily as needed for constipation one time daily if no BM, on day 4 of no BM (PRN refer to instructions) For Constipation 30 mL 2023 Active 2023 36613 76233 6 Daily as needed By Mouth False Atorvastati n 40 mg tablet [generic] 08/26 Inactiv e 2023 44835 02344 5 Atorvastati n 40 mg tablet [generic] 40mg By Mouth Once daily For HDL 40mg 2023 Active 2023 11027 79746 5 Once daily By Mouth False Insulin aspart (U-100) 100 unit/mL (3 mL) subcutaneou s pen [generic] 15 units Subcutaneous 1 time For dm 15 units 08/26 Inactiv e 2023 10545 06500 5 1 time Subcut aneous False Humalog KwikPen (U-100) Insulin 100 unit/mL subcutaneou s 15 units Subcutaneous 1 time For dm 15 units 08/27 Inactiv e 2023 72472 66971 9 1 time Subcut aneous False Linezolid 600 mg tablet [generic] 600 mg By Mouth Every 12 hours For MRSA INFECTION L BKA 600 mg 09/06 Active 2023 90372 74367 1 Every 12 hours By Mouth False Cefpodoxime 200 mg tablet [generic] 400 mg By Mouth Twice daily For MRSA INFECTION L BKA 400 mg 08/31 Inactiv e 2023 03021 25162 0 Twice daily By Mouth False Senna 8.6 mg tablet 8.6 mg By Mouth Once daily For Constipation 8.6 mg 2023 Active 2023 53724 67809 1 Once daily By Mouth False Humalog [...] abnormalities . Per Carb 2023 Active 2023 98168 02590 9 4 times a day Subcut aneous False Alendronate 35 mg tablet [generic] 08/31 Inactiv e 2023 39880 28333 5 Alendronate 35 mg tablet [generic] 35mg By Mouth Every week For Osteoporosis 35mg 2023 Active 2023 67968 57937 5 Every week By Mouth False ProSource 10 gram-100 kcal/30 mL oral liquid 30 ml By Mouth Once daily For wound healing 30 ml 2023 Active 2023 78481 20163 2 Once daily By Mouth False Clotrimazol e 1 % topical cream [generic] 1 applicaiton Topical Twice daily For tinea, apply to groin rash after cleansing and throughouly drying. Can discontinue order 3 days after rash resolves. 1 applica stacy 09/19 Active 2023 49745 44914 0 Twice daily Topica l False Humalog KwikPen (U-100) Insulin 100 unit/mL subcutaneou s 08/31 Inactiv e 2023 65108 22519 9 MediHoney HCS 4 1/2in X 4 1/2in bandage Cleanse area with NSS, apply one medihoney hydrocolloid dressing, non adherent dressing, kerlix secure with paper tape daily. For wound stage III 1 2023 Active 2023 54452 88659 1 Once daily Topica l False Problems Code Description Start Date End Date Status D64.9 Anemia, unspecified 08/25/2024 Activ e I25.10 Atherosclerotic hear t disease of [place] coronary artery without angina pectoris [...] weight Temperature SpO2 Blood Sugar Pulse Respirations 76246 8 67.00 mm[Hg] - Sitting 145.00 mm[Hg] - Sitting 98.50 Forehead Scan 96.00 % 81.00/ min 16.00/min 004 34396 2 67.00 mm[Hg] - Sitting 145.00 mm[Hg] - Sitting 98.50 Tympanic 81.00/ min 16.00/min 12439 004 95575 5 56.00 mm[Hg] - Sitting 142.00 mm[Hg] - Sitting 136.40 NI 100.20 Tympanic 96.00 % 92.00/ min 18.00/min 03835 004 24821 6 86899 004 70571 4 143.00 mg/dL 35670 0 97.80 Tympanic 005 16354 7 60.00 mm[Hg] - Sitting 140.00 mm[Hg] - Sitting 98.00 Tympanic 84.00/ min 18.00/min 56752 005 01207 0 63.00 mm[Hg] - Sitting 141.00 mm[Hg] - Sitting 98.20 Tympanic 92.00 % 63.00/ min 16.00/min 26222 005 52960 8 69.00 mm[Hg] - Sitting 106.00 mm[Hg] - Sitting 97.20 Tympanic 005 84281 7 69.00/ min 16.00/min 25015 005 46319 3 69.00 mm[Hg] - Sitting 106.00 mm[Hg] - Sitting 98.20 Tympanic 69.00/ min 16.00/min 46696 005 72277 1 367.00 mg/dL 96462 005 43768 2 97.20 Tympanic 03936 005 98876 4 97.20 Tympanic 31226 005 39979 0 69.00 mm[Hg] - Sitting 106.00 mm[Hg] - Sitting 69.00/ min 30757 005 63043 3 452.00 mg/dL 65016 005 39756 3 452.00 mg/dL 48979 005 06247 5 352.00 mg/dL 39497 005 95704 3 352.00 mg/dL 31322 005 78564 7 98.20 Tympanic 31888 005 3 101.00 mg/dL 69093 005 8 101.00 mg/dL 39204 006 51737 4 66.00 mm[Hg] - Sitting 107.00 mm[Hg] - Sitting 98.00 Tympanic 66.00/ min 18.00/min 92709 006 52739 0 62.00 mm[Hg] - Sitting 162.00 mm[Hg] - Sitting 98.20 Tympanic 96.00 % 60.00/ min 16.00/min 84853 006 72235 4 62.00 mm[Hg] - Sitting 162.00 mm[Hg] - Sitting 98.00 Tympanic 70.00/ min 18.00/min 75558 006 95704 8 62.00 mm[Hg] - Sitting 162.00 mm[Hg] - Sitting 98.20 Tympanic 70.00/ min 18.00/min 98995 006 47028 2 66.00 mm[Hg] - Sitting 132.00 mm[Hg] - Sitting 98.60 Tympanic 74.00/ min 16.00/min 10758 006 98711 5 159.00 mg/dL 42806 006 34223 1 159.00 mg/dL 45353 006 47383 8 98.00 Tympanic 09375 006 85175 2 62.00 mm[Hg] - Sitting 162.00 mm[Hg] - Sitting 70.00/ min 79365 006 06020 7 264.00 mg/dL 14575 006 44424 7 264.00 mg/dL 82776 006 26774 4 196.00 mg/dL 87601 006 80580 3 98.20 Tympanic 32374 006 94062 6 271.00 mg/dL 45329 007 22941 3 97.20 Tympanic 04327 007 29459 2 63.00 mm[Hg] - Sitting 132.00 mm[Hg] - Sitting 98.50 Tympanic 94.00 % 66.00/ min 16.00/min 52389 007 52907 5 188.00 mg/dL 58952 007 88313 2 188.00 mg/dL 13102 007 49629 2 188.00 mg/dL 29884 007 29436 7 97.20 Tympanic 57698 007 38884 6 97.20 Tympanic 38622 007 20310 5 67.00 mm[Hg] - Sitting 152.00 mm[Hg] - Sitting 68.00/ min 26527 007 05774 0 141.00 mg/dL 10505 007 06495 3 141.00 mg/dL 69721 007 35798 1 366.00 mg/dL 59747 007 50173 7 366.00 mg/dL 26021 007 81467 7 98.00 Tympanic 50808 007 32428 6 324.00 mg/dL 11556 007 73993 3 98.00 Tympanic 54193 007 82193 7 324.00 mg/dL 11305 008 31960 0 98.00 Tympanic 54001 008 55500 2 97.90 Tympanic 61623 008 12200 0 98.20 Tympanic 70556 008 17143 0 73.00 mm[Hg] - Sitting 156.00 mm[Hg] - Sitting 98.60 Tympanic 99.00 % 66.00/ min 20.00/min 26831 008 24444 5 137.00 mg/dL 61092 008 74277 7 137.00 mg/dL 20567 008 53461 2 97.90 Tympanic 75981 008 15488 1 137.00 mg/dL 22037 008 20840 8 97.90 Tympanic 43070 008 67775 5 67.00 mm[Hg] - Sitting 124.00 /min 08919 008 27189 6 212.00 mg/dL 44188 008 99352 6 212.00 mg/dL 63934 008 08036 9 317.00 mg/dL 44413 008 53508 4 317.00 mg/dL 58256 008 28984 8 252.00 mg/dL 48678 008 88103 0 98.70 Tympanic 97520 008 33607 7 252.00 mg/dL 79887 008 81809 3 98.70 Tympanic 18852 009 76108 9 98.70 Tympanic 74048 009 78735 3 98.20 Tympanic 94950 009 11843 5 98.40 Tympanic 87487 009 72515 5 57.00 mm[Hg] - Sitting 129.00 mm[Hg] - Sitting 98.30 Tympanic 97.00 % 65.00/ min 18.00/min 42838 009 99966 1 255.00 mg/dL 36265 009 48716 4 255.00 mg/dL 50684 009 47885 5 98.20 Tympanic 88957 009 65950 0 255.00 mg/dL 69243 009 27208 0 98.20 Tympanic 61832 009 80976 4 63.00 mm[Hg] - Lying Down 102.00 mm[Hg] - Lying Down 58.00/ min 51262 009 11015 0 167.00 mg/dL 35936 009 98810 1 167.00 mg/dL 58537 009 65198 2 164.00 mg/dL 14384 009 35973 1 164.00 mg/dL 68141 009 46972 5 208.00 mg/dL 17193 010 45126 3 98.40 Tympanic 23871 010 73097 5 98.40 Tympanic 78544 010 61250 7 66 NI 83754 010 90572 4 60.00 mm[Hg] - Sitting 143.00 mm[Hg] - Sitting 98.90 Tympanic 98.00 % 67.00/ min 18.00/min 88696 010 81641 2 214.00 mg/dL 95483 010 96392 0 214.00 mg/dL 57174 010 49755 7 214.00 mg/dL 54853 010 73494 6 64.00 mm[Hg] - Sitting 110.00 mm[Hg] - Sitting 72.00/ min 65805 010 83197 7 98.40 Tympanic 82009 010 85424 1 212.00 mg/dL 09868 010 07009 2 212.00 mg/dL 65750 010 00612 1 115.00 mg/dL 49263 010 94471 0 115.00 mg/dL 41495 010 20219 4 98.50 Tympanic 05685 010 17363 4 150.00 mg/dL 96894 010 28299 0 150.00 mg/dL 78698 011 82958 9 98.60 Tympanic 34223 011 40523 1 67.00 mm[Hg] - Sitting 144.00 mm[Hg] - Sitting 98.20 Tympanic 98.00 % 61.00/ min 18.00/min 09370 011 09056 7 290.00 mg/dL 49868 011 58464 2 290.00 mg/dL 71175 011 95065 2 290.00 mg/dL 83383 011 82533 7 54.00 mm[Hg] - Sitting 136.00 mm[Hg] - Sitting 101.00 /min 98022 011 10868 7 98.60 Tympanic 05198 011 05295 5 240.00 mg/dL 08119 011 88210 1 240.00 mg/dL 56191 011 27019 1 156.00 mg/dL 27281 011 26764 9 156.00 mg/dL 29683 011 03611 0 97.80 Tympanic 03890 011 81029 8 343.00 mg/dL 52847 012 32487 9 97.90 Tympanic 48802 012 01258 2 466.00 mg/dL 05150 012 89071 1 466.00 mg/dL 74700 012 47374 3 466.00 mg/dL 58410 012 17901 8 97.90 Tympanic 49126 012 41969 8 56.00 mm[Hg] - Sitting 96.00 mm[Hg] - Sitting 61.00/ min 04141 012 30900 7 350.00 mg/dL 35529 012 38111 5 350.00 mg/dL 69645 012 44782 6 111.00 mg/dL 54709 012 26859 0 111.00 mg/dL 97335 012 22986 5 98.40 Tympanic 19403 012 04690 6 114.00 mg/dL 01831 013 89122 4 74.00 mm[Hg] - Sitting 112.00 mm[Hg] - Sitting 98.40 Tympanic 70.00/ min 18.00/min 10227 013 17566 8 244.00 mg/dL 26740 013 70039 7 244.00 mg/dL 61602 013 19785 1 244.00 mg/dL 14466 013 73811 1 98.20 Tympanic 61152 013 34891 7 72.00 mm[Hg] - Sitting 119.00 mm[Hg] - Sitting 76.00/ min 05004 013 39218 7 253.00 mg/dL 42085 013 37375 4 253.00 mg/dL 92644 013 28999 9 156.00 mg/dL 82057 013 79411 5 156.00 mg/dL 08244 013 33808 4 97.90 Tympanic 26604 013 56162 5 189.00 mg/dL 81578 014 69469 9 98.10 Tympanic 36228 014 21384 0 61.00 mm[Hg] - Sitting 139.00 mm[Hg] - Sitting 98.20 Forehead Scan 99.00 % 66.00/ min 18.00/min 48120 014 84854 3 169.00 mg/dL 95235 014 86977 3 98.10 Tympanic 22743 014 00976 3 75.00 mm[Hg] - Sitting 121.00 mm[Hg] - Sitting 71.00/ min 48995 014 05892 9 221.00 mg/dL 04267 014 91504 9 62.00 mg/dL 73997 014 42089 5 62.00 mg/dL 62344 014 03670 8 156.00 mg/dL 04874 014 33027 6 98.10 Tympanic 57548 014 72954 7 156.00 mg/dL 53460 015 69522 4 82798 015 58283 7 62.00 mm[Hg] - Sitting 142.00 mm[Hg] - Sitting 98.20 Tympanic 99.00 % 67.00/ min 18.00/min 85828 015 82499 9 120.00 mg/dL 20827 015 15337 7 98.00 Tympanic 33439 015 70767 2 82.00 mm[Hg] - Sitting 119.00 /min 10871 015 89193 9 110.00 mg/dL 17954 015 59585 6 104.00 mg/dL 92515 015 64867 0 100.00 mg/dL 52601 015 40230 2 98.10 Tympanic 05125 015 73345 6 100.00 mg/dL Immunizations Vaccine Date Status COVID-19 09/20/2023 Completed Other 10/08/2023 Completed Shingles 05/27/2011 Completed Tetanus 04/13/2022 Completed TDaP 04/13/2022 Completed Shingles 2 10/05/2018 Completed
--- OUTSIDE RECORDS SUMMARY | 2024-10-03 11:13 | External Medical Summary | Continuity Of Care Document ---
Author Name Unknown Address [address] [address] Organization [facility] () Care Team Providers Care [facility]arner Name Role Phone DO Machado Amy Primary Care Provider [phone] Allergies Allergy Reaction Start Date End Date [...] 3 0.1 mL 08/29 Inactiv e 2023 80988 [id number] 0 1 time Intrad ermal False Tubersol 5 tub. unit/0.1 mL intradermal injection solution [Tuberculin PPD] 0.1mL Intradermal 1 time For PPD 2nd Step Give 2nd Step PPD Day 1 and Read results Day 3 (schedule 7 days after 1st READ) 0.1mL 09/08 Active 2023 89774 87126 0 1 time Intrad ermal False Humalog [...] order For Diabetes 08/25 Inactiv e 2023 09606 45670 9 4 times a day Subcut aneous False Aspirin 325 mg tablet [generic] 325 By Mouth Twice daily For Anticoagulati on 325 09/25 Active 2023 23933 69360 1 Twice daily By Mouth False Ferrous sulfate 325 mg (65 mg iron) tablet [generic] 325 By Mouth Once daily For anemia 325 2023 Active 2023 79996 22400 5 Once daily By Mouth False Linezolid 600 mg tablet [generic] 600 mg By Mouth Every 12 hours For MRSA INFECTION L BKA 600 mg 08/25 Inactiv e 2023 02538 03498 1 Every 12 hours By Mouth False Cefpodoxime 200 mg tablet [generic] 400 mg By Mouth Twice daily For MRSA INFECTION L BKA 400 mg 08/25 Inactiv e 2023 67161 34283 0 Twice daily By Mouth False Coenzyme Q10 100 mg tablet [generic] 100 mg By Mouth Once daily For SUPP 100 mg 2023 Active 2023 99543 07291 0 Once daily By Mouth False Levothyroxi ne 50 mcg tablet [generic] 50mcg By Mouth Once daily For hypothyroidis m 50mcg 2023 Active 2023 01832 62285 0 Once daily By Mouth False One A Day Men Complete 240 mcg-25 mcg-300 mcg tablet 1 tab By Mouth Once daily For supplement 1 tab 2023 Active 2023 86269 64599 1 Once daily By Mouth False Cholecalcif adalberto (vitamin D3) 50 mcg (2,000 unit) tablet [generic] 1 TAB By Mouth Once daily For SUPP 1 TAB 2023 Active 2023 78538 51197 1 Once daily By Mouth False Cetirizine 10 mg tablet [generic] 1 TAB By Mouth At bedtime For Allergies 1 TAB 2023 Active 2023 44281 97184 0 At bedtime By Mouth False Timolol maleate 0.25 % eye drops [generic] 1 drop Both Eyes Twice daily For glaucoma 1 drop 2023 0000 /0000 Active 2023 70624 84676 5 Twice daily Both Eyes False Alendronate 35 mg tablet [generic] 35mg By Mouth Every week For SIADH 35mg 08/31 Inactiv e 2023 36663 81606 5 Every week By Mouth False Lantus Solostar U-100 Insulin 100 unit/mL (3 mL) subcutaneou s pen 18 units Subcutaneous Every morning For DIABETES 18 units 08/25 Inactiv e 2023 44893 16755 0 Every morning Subcut aneous False Lantus Solostar U-100 Insulin 100 unit/mL (3 mL) subcutaneou s pen 18 units Subcutaneous Every morning For DIABETES 18 units 2023 Active 2023 12097 81884 0 Every morning Subcut aneous False Linezolid 600 mg tablet [generic] 600 mg By Mouth Every 12 hours For MRSA INFECTION L BKA 600 mg 08/28 Inactiv e 2023 62084 02651 1 Every 12 hours By Mouth False [...] order For Diabetes 08/31 Inactiv e 2023 22747 56386 9 4 times a day Subcut aneous False Cefpodoxime 200 mg tablet [generic] 400 mg By Mouth Twice daily For MRSA INFECTION L BKA 400 mg 08/28 Inactiv e 2023 35538 32461 0 Twice daily By Mouth False Brimonidine 0.1 % eye drops [generic] 1 drop Both Eyes Twice daily For glaucoma 1 drop 2023 Active 2023 69615 99529 0 Twice daily Both Eyes False Metoprolol succinate ER 50 mg tablet,exte nded release 24 hr [generic] 50 mg By Mouth Once daily HOLD FOR SBP <100, or pulse <60 For HTN 50 mg 2023 Active 2023 16159 92879 1 Once daily By Mouth False Amlodipine 2.5 mg tablet [generic] 2.5 mg By Mouth Once daily For HTN 2.5 mg 2023 Active 2023 30184 53628 5 Once daily By Mouth False Docusate sodium 100 mg capsule [generic] 100mg By Mouth Twice daily as needed For constipation HOLD FOR LOOSE STOOLS 100mg 2023 Active 2023 57543 90209 1 Twice daily as needed By Mouth False Atorvastati n 40 mg tablet [generic] 40mg By Mouth Once daily For HDL 40mg 08/26 Inactiv e 2023 05509 46768 5 Once daily By Mouth False Tylenol 325 mg tablet 2 tabs By Mouth Every 4 hours as needed For Pain DO NOT EXCEED 3000 MG APAP/24 Hours 2 tabs 2023 Active 2023 51827 36230 0 Every 4 hours as needed By Mouth False Tylenol 325 mg tablet 2 tabs By Mouth Every 4 hours as needed For Fever >100 DO NOT EXCEED 3000 MG APAP/24 Hours 2 tabs 2023 Active 2023 46583 26128 0 Every 4 hours as needed By Mouth False Dulcolax (bisacodyl) 10 mg rectal suppository One Suppository per rectum PRN if Milk of Magnisia ineffective. Give on day 5 of no BM 1 sup 2023 Active 2023 26659 75822 1 Daily as needed Rectal False Fleet Enema 19 gram-7 gram/118 mL Administer per rectum PRN one time if dulcolax suppository not effective. Give on day 6 of no BM 1 2023 Active 2023 84407 88461 6 Daily as needed Rectal False Dextrose 50 % in water (D50W) intravenous solution [generic] Dextrose 50% evonne 20-50 ml (slow push) Intravenous if Glucagon not effective after 15 minutes. CALL 911 for ED Evaluation. 50% evonne 2023 Active 2023 27408 85474 9 Intrav enous False Glucagon (HCl) Emergency Kit 1 mg solution for injection Administer Glucagon 1 mg Intramuscular if 15 minutes after GLucose Gel is administered Glucose remains less than 70 1 mg 2023 Active 2023 55341 91077 2 Intram uscula r False Glucose Gel 40 % oral gel [Dextrose] PRN If resident is unable to swallow (with or without symptoms) and Glucose results less than 70 give GLucose 40% Gel 1 tube orally - Recheck Glucose 15 minutes after administratio n. 1 tube 2023 Active 2023 04898 46581 8 By Mouth False Milk of Magnesia 400 mg/5 mL oral suspension [Magnesium hydroxide] PRN 30ml By Mouth Daily as needed for constipation one time daily if no BM, on day 4 of no BM (PRN refer to instructions) For Constipation 30 mL 2023 Active 2023 24296 86049 6 Daily as needed By Mouth False Atorvastati n 40 mg tablet [generic] 08/26 Inactiv e 2023 23913 49474 5 Atorvastati n 40 mg tablet [generic] 40mg By Mouth Once daily For HDL 40mg 2023 Active 2023 97394 61426 5 Once daily By Mouth False Insulin aspart (U-100) 100 unit/mL (3 mL) subcutaneou s pen [generic] 15 units Subcutaneous 1 time For dm 15 units 08/26 Inactiv e 2023 20150 11589 5 1 time Subcut aneous False Humalog KwikPen (U-100) Insulin 100 unit/mL subcutaneou s 15 units Subcutaneous 1 time For dm 15 units 08/27 Inactiv e 2023 92969 59954 9 1 time Subcut aneous False Linezolid 600 mg tablet [generic] 600 mg By Mouth Every 12 hours For MRSA INFECTION L BKA 600 mg 09/06 Active 2023 29387 34290 1 Every 12 hours By Mouth False Cefpodoxime 200 mg tablet [generic] 400 mg By Mouth Twice daily For MRSA INFECTION L BKA 400 mg 08/31 Inactiv e 2023 91583 80776 0 Twice daily By Mouth False Senna 8.6 mg tablet 8.6 mg By Mouth Once daily For Constipation 8.6 mg 2023 Active 2023 41932 62055 1 Once daily By Mouth False Humalog [...] abnormalities . Per Carb 2023 Active 2023 06202 27023 9 4 times a day Subcut aneous False Alendronate 35 mg tablet [generic] 08/31 Inactiv e 2023 76663 85497 5 Alendronate 35 mg tablet [generic] 35mg By Mouth Every week For Osteoporosis 35mg 2023 Active 2023 82216 53989 5 Every week By Mouth False ProSource 10 gram-100 kcal/30 mL oral liquid 30 ml By Mouth Once daily For wound healing 30 ml 2023 Active 2023 80191 22394 2 Once daily By Mouth False Clotrimazol e 1 % topical cream [generic] 1 applicaiton Topical Twice daily For tinea, apply to groin rash after cleansing and throughouly drying. Can discontinue order 3 days after rash resolves. 1 applica stacy 09/19 Active 2023 75719 81450 0 Twice daily Topica l False Humalog KwikPen (U-100) Insulin 100 unit/mL subcutaneou s 08/31 Inactiv e 2023 50668 69957 9 MediHoney HCS 4 1/2in X 4 1/2in bandage Cleanse area with NSS, apply one medihoney hydrocolloid dressing, non adherent dressing, kerlix secure with paper tape daily. For wound stage III 1 2023 Active 2023 96802 27883 1 Once daily Topica l False Problems Code Description Start Date End Date Status D64.9 Anemia, unspecified 08/25/2024 Activ e I25.10 Atherosclerotic hear t disease of [place] coronary artery without angina pectoris 08/25/2024 Active [...] weight Temperature SpO2 Blood Sugar Pulse Respirations 43336 8 67.00 mm[Hg] - Sitting 145.00 mm[Hg] - Sitting 98.50 Forehead Scan 96.00 % 81.00/ min 16.00/min 004 75549 2 67.00 mm[Hg] - Sitting 145.00 mm[Hg] - Sitting 98.50 Tympanic 81.00/ min 16.00/min 63896 004 43301 5 56.00 mm[Hg] - Sitting 142.00 mm[Hg] - Sitting 136.40 NI 100.20 Tympanic 96.00 % 92.00/ min 18.00/min 72923 004 07654 6 30039 004 81315 4 143.00 mg/dL 40631 0 97.80 Tympanic 005 33179 7 60.00 mm[Hg] - Sitting 140.00 mm[Hg] - Sitting 98.00 Tympanic 84.00/ min 18.00/min 21169 005 75582 0 63.00 mm[Hg] - Sitting 141.00 mm[Hg] - Sitting 98.20 Tympanic 92.00 % 63.00/ min 16.00/min 53168 005 42834 8 69.00 mm[Hg] - Sitting 106.00 mm[Hg] - Sitting 97.20 Tympanic 005 28719 7 69.00/ min 16.00/min 49911 005 85847 3 69.00 mm[Hg] - Sitting 106.00 mm[Hg] - Sitting 98.20 Tympanic 69.00/ min 16.00/min 20578 005 80330 1 367.00 mg/dL 16269 005 54887 2 97.20 Tympanic 16243 005 91904 4 97.20 Tympanic 79216 005 47847 0 69.00 mm[Hg] - Sitting 106.00 mm[Hg] - Sitting 69.00/ min 67139 005 95100 3 452.00 mg/dL 63457 005 47376 3 452.00 mg/dL 99463 005 74120 5 352.00 mg/dL 44836 005 92600 3 352.00 mg/dL 82935 005 06517 7 98.20 Tympanic 42232 005 3 101.00 mg/dL 56434 005 8 101.00 mg/dL 41866 006 23833 4 66.00 mm[Hg] - Sitting 107.00 mm[Hg] - Sitting 98.00 Tympanic 66.00/ min 18.00/min 13630 006 09675 0 62.00 mm[Hg] - Sitting 162.00 mm[Hg] - Sitting 98.20 Tympanic 96.00 % 60.00/ min 16.00/min 20381 006 95744 4 62.00 mm[Hg] - Sitting 162.00 mm[Hg] - Sitting 98.00 Tympanic 70.00/ min 18.00/min 36603 006 66049 8 62.00 mm[Hg] - Sitting 162.00 mm[Hg] - Sitting 98.20 Tympanic 70.00/ min 18.00/min 98700 006 97781 2 66.00 mm[Hg] - Sitting 132.00 mm[Hg] - Sitting 98.60 Tympanic 74.00/ min 16.00/min 21551 006 69611 5 159.00 mg/dL Immunizations Vaccine Date Status COVID-19 09/20/2023 Completed Other 10/08/2023 Completed Shingles 05/27/2011 Completed Tetanus 04/13/2022 Completed TDaP 04/13/2022 Completed Shingles 2 10/05/2018 Completed
--- OUTSIDE RECORDS SUMMARY | 2024-10-03 11:13 | External Medical Summary | Continuity Of Care Document ---
Author Name Unknown Address [address] [address] Organization [facility] () Care Team Providers Care Medical Technologist Microbiology Name Role Phone DO Machado Amy Primary Care Provider [phone] Allergies Allergy Reaction Start Date End Date [...] 3 0.1 mL 08/29 Inactiv e 2023 80155 81248 0 1 time Intrad ermal False Tubersol 5 tub. unit/0.1 mL intradermal injection solution [Tuberculin PPD] 0.1mL Intradermal 1 time For PPD 2nd Step Give 2nd Step PPD Day 1 and Read results Day 3 (schedule 7 days after 1st READ) 0.1mL 09/08 Active 2023 77329 38012 0 1 time Intrad ermal False Humalog [...] order For Diabetes 08/25 Inactiv e 2023 50974 86303 9 4 times a day Subcut aneous False Aspirin 325 mg tablet [generic] 325 By Mouth Twice daily For Anticoagulati on 325 09/25 Active 2023 11203 20749 1 Twice daily By Mouth False Ferrous sulfate 325 mg (65 mg iron) tablet [generic] 325 By Mouth Once daily For anemia 325 2023 Active 2023 05665 25704 5 Once daily By Mouth False Linezolid 600 mg tablet [generic] 600 mg By Mouth Every 12 hours For MRSA INFECTION L BKA 600 mg 08/25 Inactiv e 2023 65440 89547 1 Every 12 hours By Mouth False Cefpodoxime 200 mg tablet [generic] 400 mg By Mouth Twice daily For MRSA INFECTION L BKA 400 mg 08/25 Inactiv e 2023 96089 49300 0 Twice daily By Mouth False Coenzyme Q10 100 mg tablet [generic] 100 mg By Mouth Once daily For SUPP 100 mg 2023 Active 2023 12924 65621 0 Once daily By Mouth False Levothyroxi ne 50 mcg tablet [generic] 50mcg By Mouth Once daily For hypothyroidis m 50mcg 2023 Active 2023 53122 65009 0 Once daily By Mouth False One A Day Men Complete 240 mcg-25 mcg-300 mcg tablet 1 tab By Mouth Once daily For supplement 1 tab 2023 Active 2023 09538 03403 1 Once daily By Mouth False Cholecalcif adalberto (vitamin D3) 50 mcg (2,000 unit) tablet [generic] 1 TAB By Mouth Once daily For SUPP 1 TAB 2023 Active 2023 53231 99875 1 Once daily By Mouth False Cetirizine 10 mg tablet [generic] 1 TAB By Mouth At bedtime For Allergies 1 TAB 2023 Active 2023 55389 97409 0 At bedtime By Mouth False Timolol maleate 0.25 % eye drops [generic] 1 drop Both Eyes Twice daily For glaucoma 1 drop 2023 0000 /0000 Active 2023 26674 79769 5 Twice daily Both Eyes False Alendronate 35 mg tablet [generic] 35mg By Mouth Every week For SIADH 35mg 08/31 Inactiv e 2023 02258 79557 5 Every week By Mouth False Lantus Solostar U-100 Insulin 100 unit/mL (3 mL) subcutaneou s pen 18 units Subcutaneous Every morning For DIABETES 18 units 08/25 Inactiv e 2023 87093 97425 0 Every morning Subcut aneous False Lantus Solostar U-100 Insulin 100 unit/mL (3 mL) subcutaneou s pen 18 units Subcutaneous Every morning For DIABETES 18 units 2023 Active 2023 66298 87840 0 Every morning Subcut aneous False Linezolid 600 mg tablet [generic] 600 mg By Mouth Every 12 hours For MRSA INFECTION L BKA 600 mg 08/28 Inactiv e 2023 90816 00700 1 Every 12 hours By Mouth False [...] order For Diabetes 08/31 Inactiv e 2023 33157 84784 9 4 times a day Subcut aneous False Cefpodoxime 200 mg tablet [generic] 400 mg By Mouth Twice daily For MRSA INFECTION L BKA 400 mg 08/28 Inactiv e 2023 15170 82175 0 Twice daily By Mouth False Brimonidine 0.1 % eye drops [generic] 1 drop Both Eyes Twice daily For glaucoma 1 drop 2023 Active 2023 58825 84815 0 Twice daily Both Eyes False Metoprolol succinate ER 50 mg tablet,exte nded release 24 hr [generic] 50 mg By Mouth Once daily HOLD FOR SBP <100, or pulse <60 For HTN 50 mg 2023 Active 2023 82616 01831 1 Once daily By Mouth False Amlodipine 2.5 mg tablet [generic] 2.5 mg By Mouth Once daily For HTN 2.5 mg 2023 Active 2023 36276 69247 5 Once daily By Mouth False Docusate sodium 100 mg capsule [generic] 100mg By Mouth Twice daily as needed For constipation HOLD FOR LOOSE STOOLS 100mg 2023 Active 2023 40688 51358 1 Twice daily as needed By Mouth False Atorvastati n 40 mg tablet [generic] 40mg By Mouth Once daily For HDL 40mg 08/26 Inactiv e 2023 95999 42012 5 Once daily By Mouth False Tylenol 325 mg tablet 2 tabs By Mouth Every 4 hours as needed For Pain DO NOT EXCEED 3000 MG APAP/24 Hours 2 tabs 2023 Active 2023 09422 99105 0 Every 4 hours as needed By Mouth False Tylenol 325 mg tablet 2 tabs By Mouth Every 4 hours as needed For Fever >100 DO NOT EXCEED 3000 MG APAP/24 Hours 2 tabs 2023 Active 2023 81652 97848 0 Every 4 hours as needed By Mouth False Dulcolax (bisacodyl) 10 mg rectal suppository One Suppository per rectum PRN if Milk of Magnisia ineffective. Give on day 5 of no BM 1 sup 2023 Active 2023 82725 30376 1 Daily as needed Rectal False Fleet Enema 19 gram-7 gram/118 mL Administer per rectum PRN one time if dulcolax suppository not effective. Give on day 6 of no BM 1 2023 Active 2023 73408 91232 6 Daily as needed Rectal False Dextrose 50 % in water (D50W) intravenous solution [generic] Dextrose 50% evonne 20-50 ml (slow push) Intravenous if Glucagon not effective after 15 minutes. CALL 911 for ED Evaluation. 50% evonne 2023 Active 2023 08778 42443 9 Intrav enous False Glucagon (HCl) Emergency Kit 1 mg solution for injection Administer Glucagon 1 mg Intramuscular if 15 minutes after GLucose Gel is administered Glucose remains less than 70 1 mg 2023 Active 2023 05114 28122 2 Intram uscula r False Glucose Gel 40 % oral gel [Dextrose] PRN If resident is unable to swallow (with or without symptoms) and Glucose results less than 70 give GLucose 40% Gel 1 tube orally - Recheck Glucose 15 minutes after administratio n. 1 tube 2023 Active 2023 85528 58541 8 By Mouth False Milk of Magnesia 400 mg/5 mL oral suspension [Magnesium hydroxide] PRN 30ml By Mouth Daily as needed for constipation one time daily if no BM, on day 4 of no BM (PRN refer to instructions) For Constipation 30 mL 2023 Active 2023 87138 07206 6 Daily as needed By Mouth False Atorvastati n 40 mg tablet [generic] 08/26 Inactiv e 2023 82881 88442 5 Atorvastati n 40 mg tablet [generic] 40mg By Mouth Once daily For HDL 40mg 2023 Active 2023 54723 95971 5 Once daily By Mouth False Insulin aspart (U-100) 100 unit/mL (3 mL) subcutaneou s pen [generic] 15 units Subcutaneous 1 time For dm 15 units 08/26 Inactiv e 2023 14619 81221 5 1 time Subcut aneous False Humalog KwikPen (U-100) Insulin 100 unit/mL subcutaneou s 15 units Subcutaneous 1 time For dm 15 units 08/27 Inactiv e 2023 08059 96086 9 1 time Subcut aneous False Linezolid 600 mg tablet [generic] 600 mg By Mouth Every 12 hours For MRSA INFECTION L BKA 600 mg 09/06 Active 2023 52786 46617 1 Every 12 hours By Mouth False Cefpodoxime 200 mg tablet [generic] 400 mg By Mouth Twice daily For MRSA INFECTION L BKA 400 mg 08/31 Inactiv e 2023 32183 71740 0 Twice daily By Mouth False Senna 8.6 mg tablet 8.6 mg By Mouth Once daily For Constipation 8.6 mg 2023 Active 2023 30746 49462 1 Once daily By Mouth False Humalog [...] abnormalities . Per Carb 2023 Active 2023 73345 64652 9 4 times a day Subcut aneous False Alendronate 35 mg tablet [generic] 08/31 Inactiv e 2023 42362 65541 5 Alendronate 35 mg tablet [generic] 35mg By Mouth Every week For Osteoporosis 35mg 2023 Active 2023 11650 79459 5 Every week By Mouth False ProSource 10 gram-100 kcal/30 mL oral liquid 30 ml By Mouth Once daily For wound healing 30 ml 2023 Active 2023 10249 02378 2 Once daily By Mouth False Problems Code Description Start Date End Date Status D64.9 Anemia, unspecified 08/25/2024 Activ e I25.10 Atherosclerotic hear t disease of [place] coronary artery without angina pectoris 08/25/2024 Active [...] Temperature SpO2 Blood Sugar Pulse Respirations 004 24403 8 67.00 mm[Hg] - Sitting 145.00 mm[Hg] - Sitting 98.50 Forehead Scan 96.00 % 81.00/ min 16.00/min 72441 004 07417 2 67.00 mm[Hg] - Sitting 145.00 mm[Hg] - Sitting 98.50 Tympanic 81.00/ min 16.00/min 62907 004 09863 5 56.00 mm[Hg] - Sitting 142.00 mm[Hg] - Sitting 136.40 NI 100.20 Tympanic 96.00 % 92.00/ min 18.00/min 14320 004 79397 6 08219 004 80230 4 143.00 mg/dL 03604 004 16341 0 97.80 Tympanic 38682 005 91850 7 60.00 mm[Hg] - Sitting 140.00 mm[Hg] - Sitting 98.00 Tympanic 84.00/ min 18.00/min 87388 005 26972 0 63.00 mm[Hg] - Sitting 141.00 mm[Hg] - Sitting 98.20 Tympanic 92.00 % 63.00/ min 16.00/min 91385 005 69604 8 69.00 mm[Hg] - Sitting 106.00 mm[Hg] - Sitting 97.20 Tympanic 51184 005 08788 7 69.00/ min 16.00/min 32479 005 99981 3 69.00 mm[Hg] - Sitting 106.00 mm[Hg] - Sitting 98.20 Tympanic 69.00/ min 16.00/min 81405 005 17484 1 367.00 mg/dL 93047 005 84640 2 97.20 Tympanic 20010 005 44491 4 97.20 Tympanic 63942 005 26840 0 69.00 mm[Hg] - Sitting 106.00 mm[Hg] - Sitting 69.00/ min 55573 005 91149 3 452.00 mg/dL 91964 005 59240 3 452.00 mg/dL 84070 005 75093 5 352.00 mg/dL 22645 005 75007 3 352.00 mg/dL 55177 005 09313 7 98.20 Tympanic 68474 005 64591 3 101.00 mg/dL 90515 005 8 101.00 mg/dL 36246 006 01274 4 66.00 mm[Hg] - Sitting 107.00 mm[Hg] - Sitting 98.00 Tympanic 66.00/ min 18.00/min 88128 006 15863 0 62.00 mm[Hg] - Sitting 162.00 mm[Hg] - Sitting 98.20 Tympanic 96.00 % 60.00/ min 16.00/min 22208 006 85895 4 62.00 mm[Hg] - Sitting 162.00 mm[Hg] - Sitting 98.00 Tympanic 70.00/ min 18.00/min 78010 006 01399 8 62.00 mm[Hg] - Sitting 162.00 mm[Hg] - Sitting 98.20 Tympanic 70.00/ min 18.00/min 04702 006 74062 2 66.00 mm[Hg] - Sitting 132.00 mm[Hg] - Sitting 98.60 Tympanic 74.00/ min 16.00/min 81215 006 05993 5 159.00 mg/dL 17495 006 02177 1 159.00 mg/dL 67322 006 83549 8 98.00 Tympanic 73135 006 34007 2 62.00 mm[Hg] - Sitting 162.00 mm[Hg] - Sitting 70.00/ min 13783 006 47788 7 264.00 mg/dL 44127 006 38759 7 264.00 mg/dL 11389 006 53708 4 196.00 mg/dL 05666 006 80352 3 98.20 Tympanic 05274 006 89545 6 271.00 mg/dL 50844 007 73264 3 97.20 Tympanic 74934 007 23020 2 63.00 mm[Hg] - Sitting 132.00 mm[Hg] - Sitting 98.50 Tympanic 94.00 % 66.00/ min 16.00/min 50642 007 02665 5 188.00 mg/dL 83573 007 59839 2 188.00 mg/dL 98782 007 67759 2 188.00 mg/dL 56416 007 08102 7 97.20 Tympanic 60973 007 83883 6 97.20 Tympanic 98705 007 26820 5 67.00 mm[Hg] - Sitting 152.00 mm[Hg] - Sitting 68.00/ min 85917 007 79046 0 141.00 mg/dL 71875 007 23826 3 141.00 mg/dL 47814 007 81570 1 366.00 mg/dL 04668 007 74504 7 366.00 mg/dL 68388 007 25259 7 98.00 Tympanic 77119 007 44326 6 324.00 mg/dL 87131 007 37904 3 98.00 Tympanic 38641 007 65766 7 324.00 mg/dL 02501 008 48367 0 98.00 Tympanic 15608 008 88747 2 97.90 Tympanic 09215 008 42604 0 98.20 Tympanic 80747 008 70212 0 73.00 mm[Hg] - Sitting 156.00 mm[Hg] - Sitting 98.60 Tympanic 99.00 % 66.00/ min 20.00/min 45463 008 03392 5 137.00 mg/dL 19680 008 91801 7 137.00 mg/dL 06865 008 79975 2 97.90 Tympanic 26923 008 61758 1 137.00 mg/dL 50233 008 06855 8 97.90 Tympanic 45652 008 63528 5 67.00 mm[Hg] - Sitting 124.00 /min 37703 008 28357 6 212.00 mg/dL 28240 008 15474 6 212.00 mg/dL 94246 008 95783 9 317.00 mg/dL 85379 008 39336 4 317.00 mg/dL 82627 008 72104 8 252.00 mg/dL 51173 008 63752 0 98.70 Tympanic 21034 008 35697 7 252.00 mg/dL 08526 008 23015 3 98.70 Tympanic 19315 009 82971 9 98.70 Tympanic 78750 009 68734 3 98.20 Tympanic 38562 009 84668 5 98.40 Tympanic 06637 009 97543 5 57.00 mm[Hg] - Sitting 129.00 mm[Hg] - Sitting 98.30 Tympanic 97.00 % 65.00/ min 18.00/min 86103 009 92399 1 255.00 mg/dL 20573 009 95498 4 255.00 mg/dL 16350 009 94855 5 98.20 Tympanic 23849 009 75845 0 255.00 mg/dL 42971 009 12049 0 98.20 Tympanic 24045 009 52961 4 63.00 mm[Hg] - Lying Down 102.00 mm[Hg] - Lying Down 58.00/ min 00270 009 35047 0 167.00 mg/dL 04162 009 53821 1 167.00 mg/dL 96165 009 92758 2 164.00 mg/dL 63235 009 04206 1 164.00 mg/dL 25739 009 11700 5 208.00 mg/dL 47552 010 62273 3 98.40 Tympanic 94923 010 86629 5 98.40 Tympanic 07655 010 97782 7 66 [place] [address]95 010 88170 4 60.00 mm[Hg] - Sitting 143.00 mm[Hg] - Sitting 98.90 Tympanic 98.00 % 67.00/ min 18.00/min 23843 010 42795 2 214.00 mg/dL 39822 010 94976 0 214.00 mg/dL 69698 010 74354 7 214.00 mg/dL 08884 010 67151 6 64.00 mm[Hg] - Sitting 110.00 mm[Hg] - Sitting 72.00/ min 09387 010 79615 7 98.40 Tympanic 36572 010 94780 1 212.00 mg/dL 05595 010 57569 2 212.00 mg/dL 50170 010 36631 1 115.00 mg/dL 22736 010 69511 0 115.00 mg/dL 48932 010 95066 4 98.50 Tympanic 16936 010 36849 4 150.00 mg/dL 04901 010 36696 0 150.00 mg/dL 05809 011 97852 9 98.60 Tympanic 53933 011 41209 1 67.00 mm[Hg] - Sitting 144.00 mm[Hg] - Sitting 98.20 Tympanic 98.00 % 61.00/ min 18.00/min 49273 011 07876 7 290.00 mg/dL 97673 011 33615 2 290.00 mg/dL 95893 011 09120 2 290.00 mg/dL 89349 011 22610 7 54.00 mm[Hg] - Sitting 136.00 mm[Hg] - Sitting 101.00 /min 40467 011 86155 7 98.60 Tympanic 10649 011 33234 5 240.00 mg/dL 29869 011 11668 1 240.00 mg/dL 25573 011 95862 1 156.00 mg/dL 10993 011 21085 9 156.00 mg/dL 06456 011 55331 0 97.80 Tympanic 86046 011 86987 8 343.00 mg/dL 49186 012 85803 9 97.90 Tympanic 27529 012 51567 2 466.00 mg/dL 07308 012 18160 1 466.00 mg/dL 84958 012 08673 3 466.00 mg/dL 50225 012 57913 8 97.90 Tympanic 77607 012 69672 8 56.00 mm[Hg] - Sitting 96.00 mm[Hg] - Sitting 61.00/ min 02517 012 55099 7 350.00 mg/dL 28320 012 74578 5 350.00 mg/dL 04955 012 86978 6 111.00 mg/dL 04770 012 01066 0 111.00 mg/dL 15836 012 34048 5 98.40 Tympanic 82873 012 65985 6 114.00 mg/dL 45384 013 90022 4 74.00 mm[Hg] - Sitting 112.00 mm[Hg] - Sitting 98.40 Tympanic 70.00/ min 18.00/min 58950 013 76950 8 244.00 mg/dL 49259 013 96363 7 244.00 mg/dL 03743 013 70243 1 244.00 mg/dL 59392 013 07657 1 98.20 Tympanic 22693 013 36232 7 72.00 mm[Hg] - Sitting 119.00 mm[Hg] - Sitting 76.00/ min 61868 013 50204 7 253.00 mg/dL 58593 013 97045 4 253.00 mg/dL 24615 013 14911 9 156.00 mg/dL 32899 013 42012 5 156.00 mg/dL 73664 013 16722 4 97.90 Tympanic 38698 013 27783 5 189.00 mg/dL 68202 014 59392 9 98.10 Tympanic 76537 014 48971 3 169.00 mg/dL 11979 014 51962 3 98.10 Tympanic 79132 014 09859 3 75.00 mm[Hg] - Sitting 121.00 mm[Hg] - Sitting 71.00/ min 34379 014 82315 9 221.00 mg/dL 81347 014 88381 9 62.00 mg/dL 02670 014 96691 5 62.00 mg/dL 08165 014 24420 8 156.00 mg/dL 51627 014 04601 6 98.10 Tympanic 50348 014 97625 7 156.00 mg/dL Immunizations Vaccine Date Status COVID-19 09/20/2023 Completed Other 10/08/2023 Completed Shingles 05/27/2011 Completed Tetanus 04/13/2022 Completed TDaP 04/13/2022 Completed Shingles 2 10/05/2018 Completed
--- OUTSIDE RECORDS SUMMARY | 2024-10-03 11:13 | External Medical Summary | Continuity Of Care Document ---
Author Name Unknown Address [address] [address] Organization [facility] () Care Team Providers Care Bun Panner Name Role Phone DO Machado Amy Primary Care Provider [phone] Allergies Allergy Reaction Start Date End Date [...] 3 0.1 mL 08/29 Inactiv e 2023 95898 18800 0 1 time Intrad ermal False Tubersol 5 tub. unit/0.1 mL intradermal injection solution [Tuberculin PPD] 0.1mL Intradermal 1 time For PPD 2nd Step Give 2nd Step PPD Day 1 and Read results Day 3 (schedule 7 days after 1st READ) 0.1mL 09/08 Active 2023 88940 91683 0 1 time Intrad ermal False Humalog [...] order For Diabetes 08/25 Inactiv e 2023 72152 46325 9 4 times a day Subcut aneous False Aspirin 325 mg tablet [generic] 325 By Mouth Twice daily For Anticoagulati on 325 09/25 Active 2023 73322 00442 1 Twice daily By Mouth False Ferrous sulfate 325 mg (65 mg iron) tablet [generic] 325 By Mouth Once daily For anemia 325 2023 Active 2023 43414 70927 5 Once daily By Mouth False Linezolid 600 mg tablet [generic] 600 mg By Mouth Every 12 hours For MRSA INFECTION L BKA 600 mg 08/25 Inactiv e 2023 33141 09677 1 Every 12 hours By Mouth False Cefpodoxime 200 mg tablet [generic] 400 mg By Mouth Twice daily For MRSA INFECTION L BKA 400 mg 08/25 Inactiv e 2023 41161 74980 0 Twice daily By Mouth False Coenzyme Q10 100 mg tablet [generic] 100 mg By Mouth Once daily For SUPP 100 mg 2023 Active 2023 25121 69764 0 Once daily By Mouth False Levothyroxi ne 50 mcg tablet [generic] 50mcg By Mouth Once daily For hypothyroidis m 50mcg 2023 Active 2023 35927 52200 0 Once daily By Mouth False One A Day Men Complete 240 mcg-25 mcg-300 mcg tablet 1 tab By Mouth Once daily For supplement 1 tab 2023 Active 2023 86169 50540 1 Once daily By Mouth False Cholecalcif adalberto (vitamin D3) 50 mcg (2,000 unit) tablet [generic] 1 TAB By Mouth Once daily For SUPP 1 TAB 2023 Active 2023 57418 96927 1 Once daily By Mouth False Cetirizine 10 mg tablet [generic] 1 TAB By Mouth At bedtime For Allergies 1 TAB 2023 Active 2023 64953 13784 0 At bedtime By Mouth False Timolol maleate 0.25 % eye drops [generic] 1 drop Both Eyes Twice daily For glaucoma 1 drop 2023 0000 /0000 Active 2023 65356 66315 5 Twice daily Both Eyes False Alendronate 35 mg tablet [generic] 35mg By Mouth Every week For SIADH 35mg 08/31 Inactiv e 2023 56542 64504 5 Every week By Mouth False Lantus Solostar U-100 Insulin 100 unit/mL (3 mL) subcutaneou s pen 18 units Subcutaneous Every morning For DIABETES 18 units 08/25 Inactiv e 2023 09885 63489 0 Every morning Subcut aneous False Lantus Solostar U-100 Insulin 100 unit/mL (3 mL) subcutaneou s pen 18 units Subcutaneous Every morning For DIABETES 18 units 2023 Active 2023 67253 74698 0 Every morning Subcut aneous False Linezolid 600 mg tablet [generic] 600 mg By Mouth Every 12 hours For MRSA INFECTION L BKA 600 mg 08/28 Inactiv e 2023 13845 53281 1 Every 12 hours By Mouth False [...] order For Diabetes 08/31 Inactiv e 2023 08077 37889 9 4 times a day Subcut aneous False Cefpodoxime 200 mg tablet [generic] 400 mg By Mouth Twice daily For MRSA INFECTION L BKA 400 mg 08/28 Inactiv e 2023 78701 12127 0 Twice daily By Mouth False Brimonidine 0.1 % eye drops [generic] 1 drop Both Eyes Twice daily For glaucoma 1 drop 2023 Active 2023 03520 74215 0 Twice daily Both Eyes False Metoprolol succinate ER 50 mg tablet,exte nded release 24 hr [generic] 50 mg By Mouth Once daily HOLD FOR SBP <100, or pulse <60 For HTN 50 mg 2023 Active 2023 85267 20999 1 Once daily By Mouth False Amlodipine 2.5 mg tablet [generic] 2.5 mg By Mouth Once daily For HTN 2.5 mg 2023 Active 2023 09590 23141 5 Once daily By Mouth False Docusate sodium 100 mg capsule [generic] 100mg By Mouth Twice daily as needed For constipation HOLD FOR LOOSE STOOLS 100mg 2023 Active 2023 43841 05526 1 Twice daily as needed By Mouth False Atorvastati n 40 mg tablet [generic] 40mg By Mouth Once daily For HDL 40mg 08/26 Inactiv e 2023 21555 27929 5 Once daily By Mouth False Tylenol 325 mg tablet 2 tabs By Mouth Every 4 hours as needed For Pain DO NOT EXCEED 3000 MG APAP/24 Hours 2 tabs 2023 Active 2023 68088 30469 0 Every 4 hours as needed By Mouth False Tylenol 325 mg tablet 2 tabs By Mouth Every 4 hours as needed For Fever >100 DO NOT EXCEED 3000 MG APAP/24 Hours 2 tabs 2023 Active 2023 10037 85020 0 Every 4 hours as needed By Mouth False Dulcolax (bisacodyl) 10 mg rectal suppository One Suppository per rectum PRN if Milk of Magnisia ineffective. Give on day 5 of no BM 1 sup 2023 Active 2023 15219 91244 1 Daily as needed Rectal False Fleet Enema 19 gram-7 gram/118 mL Administer per rectum PRN one time if dulcolax suppository not effective. Give on day 6 of no BM 1 2023 Active 2023 70453 85128 6 Daily as needed Rectal False Dextrose 50 % in water (D50W) intravenous solution [generic] Dextrose 50% evonne 20-50 ml (slow push) Intravenous if Glucagon not effective after 15 minutes. CALL 911 for ED Evaluation. 50% evonne 2023 Active 2023 45521 26591 9 Intrav enous False Glucagon (HCl) Emergency Kit 1 mg solution for injection Administer Glucagon 1 mg Intramuscular if 15 minutes after GLucose Gel is administered Glucose remains less than 70 1 mg 2023 Active 2023 94040 61486 2 Intram uscula r False Glucose Gel 40 % oral gel [Dextrose] PRN If resident is unable to swallow (with or without symptoms) and Glucose results less than 70 give GLucose 40% Gel 1 tube orally - Recheck Glucose 15 minutes after administratio n. 1 tube 2023 Active 2023 49559 12763 8 By Mouth False Milk of Magnesia 400 mg/5 mL oral suspension [Magnesium hydroxide] PRN 30ml By Mouth Daily as needed for constipation one time daily if no BM, on day 4 of no BM (PRN refer to instructions) For Constipation 30 mL 2023 Active 2023 18721 79177 6 Daily as needed By Mouth False Atorvastati n 40 mg tablet [generic] 08/26 Inactiv e 2023 68365 15867 5 Atorvastati n 40 mg tablet [generic] 40mg By Mouth Once daily For HDL 40mg 2023 Active 2023 53005 26759 5 Once daily By Mouth False Insulin aspart (U-100) 100 unit/mL (3 mL) subcutaneou s pen [generic] 15 units Subcutaneous 1 time For dm 15 units 08/26 Inactiv e 2023 12558 03709 5 1 time Subcut aneous False Humalog KwikPen (U-100) Insulin 100 unit/mL subcutaneou s 15 units Subcutaneous 1 time For dm 15 units 08/27 Inactiv e 2023 64364 24397 9 1 time Subcut aneous False Linezolid 600 mg tablet [generic] 600 mg By Mouth Every 12 hours For MRSA INFECTION L BKA 600 mg 09/06 Active 2023 57355 97403 1 Every 12 hours By Mouth False Cefpodoxime 200 mg tablet [generic] 400 mg By Mouth Twice daily For MRSA INFECTION L BKA 400 mg 08/31 Inactiv e 2023 88397 22997 0 Twice daily By Mouth False Senna 8.6 mg tablet 8.6 mg By Mouth Once daily For Constipation 8.6 mg 2023 Active 2023 76750 59233 1 Once daily By Mouth False Humalog [...] abnormalities . Per Carb 2023 Active 2023 63471 39858 9 4 times a day Subcut aneous False Alendronate 35 mg tablet [generic] 08/31 Inactiv e 2023 73491 54370 5 Alendronate 35 mg tablet [generic] 35mg By Mouth Every week For Osteoporosis 35mg 2023 Active 2023 08748 34873 5 Every week By Mouth False ProSource 10 gram-100 kcal/30 mL oral liquid 30 ml By Mouth Once daily For wound healing 30 ml 2023 Active 2023 98398 53842 2 Once daily By Mouth False Clotrimazol e 1 % topical cream [generic] 1 applicaiton Topical Twice daily For tinea, apply to groin rash after cleansing and throughouly drying. Can discontinue order 3 days after rash resolves. 1 applica stacy 09/19 Active 2023 95770 78672 0 Twice daily Topica l False Humalog KwikPen (U-100) Insulin 100 unit/mL subcutaneou s 08/31 Inactiv e 2023 81206 78493 9 MediHoney HCS 4 1/2in X 4 1/2in bandage Cleanse area with NSS, apply one medihoney hydrocolloid dressing, non adherent dressing, kerlix secure with paper tape daily. For wound stage III 1 2023 Active 2023 20136 01005 1 Once daily Topica l False Problems Code Description Start Date End Date Status D64.9 Anemia, unspecified 08/25/2024 Activ e I25.10 Atherosclerotic hear t disease of [place] coronary artery without angina pectoris 08/25/2024 [...] weight Temperature SpO2 Blood Sugar Pulse Respirations 03186 8 67.00 mm[Hg] - Sitting 145.00 mm[Hg] - Sitting 98.50 Forehead Scan 96.00 % 81.00/ min 16.00/min 004 05221 2 67.00 mm[Hg] - Sitting 145.00 mm[Hg] - Sitting 98.50 Tympanic 81.00/ min 16.00/min 06053 004 42729 5 56.00 mm[Hg] - Sitting 142.00 mm[Hg] - Sitting 136.40 NI 100.20 Tympanic 96.00 % 92.00/ min 18.00/min 17986 004 54730 6 04886 004 67732 4 143.00 mg/dL 28878 0 97.80 Tympanic 005 57296 7 60.00 mm[Hg] - Sitting 140.00 mm[Hg] - Sitting 98.00 Tympanic 84.00/ min 18.00/min 56062 005 94178 0 63.00 mm[Hg] - Sitting 141.00 mm[Hg] - Sitting 98.20 Tympanic 92.00 % 63.00/ min 16.00/min 72526 005 10470 8 69.00 mm[Hg] - Sitting 106.00 mm[Hg] - Sitting 97.20 Tympanic 005 54170 7 69.00/ min 16.00/min 47819 005 51921 3 69.00 mm[Hg] - Sitting 106.00 mm[Hg] - Sitting 98.20 Tympanic 69.00/ min 16.00/min 60374 005 90106 1 367.00 mg/dL 96975 005 02686 2 97.20 Tympanic 42388 005 93159 4 97.20 Tympanic 19177 005 42222 0 69.00 mm[Hg] - Sitting 106.00 mm[Hg] - Sitting 69.00/ min 04343 005 34037 3 452.00 mg/dL 28670 005 73490 3 452.00 mg/dL 93557 005 24141 5 352.00 mg/dL 51252 005 80070 3 352.00 mg/dL 98854 005 56915 7 98.20 Tympanic 28270 005 3 101.00 mg/dL 09061 005 8 101.00 mg/dL 48156 006 43615 4 66.00 mm[Hg] - Sitting 107.00 mm[Hg] - Sitting 98.00 Tympanic 66.00/ min 18.00/min 46355 006 12914 0 62.00 mm[Hg] - Sitting 162.00 mm[Hg] - Sitting 98.20 Tympanic 96.00 % 60.00/ min 16.00/min 71190 006 24113 4 62.00 mm[Hg] - Sitting 162.00 mm[Hg] - Sitting 98.00 Tympanic 70.00/ min 18.00/min 28434 006 23719 8 62.00 mm[Hg] - Sitting 162.00 mm[Hg] - Sitting 98.20 Tympanic 70.00/ min 18.00/min 53282 006 44980 2 66.00 mm[Hg] - Sitting 132.00 mm[Hg] - Sitting 98.60 Tympanic 74.00/ min 16.00/min 18698 006 17522 5 159.00 mg/dL 45237 006 04054 1 159.00 mg/dL 31403 006 15538 8 98.00 Tympanic 48257 006 41599 2 62.00 mm[Hg] - Sitting 162.00 mm[Hg] - Sitting 70.00/ min 11724 006 74984 7 264.00 mg/dL 49378 006 59731 7 264.00 mg/dL 77665 006 56238 4 196.00 mg/dL 33580 006 02941 3 98.20 Tympanic 82099 006 14626 6 271.00 mg/dL 73636 007 48300 3 97.20 Tympanic 19338 007 02414 2 63.00 mm[Hg] - Sitting 132.00 mm[Hg] - Sitting 98.50 Tympanic 94.00 % 66.00/ min 16.00/min 99990 007 21987 5 188.00 mg/dL 05632 007 49948 2 188.00 mg/dL 74230 007 88088 2 188.00 mg/dL 00027 007 85127 7 97.20 Tympanic 94709 007 69399 6 97.20 Tympanic 85369 007 38167 5 67.00 mm[Hg] - Sitting 152.00 mm[Hg] - Sitting 68.00/ min 41111 007 46989 0 141.00 mg/dL 69211 007 72157 3 141.00 mg/dL 02531 007 59710 1 366.00 mg/dL 27797 007 10394 7 366.00 mg/dL 17877 007 06663 7 98.00 Tympanic 42115 007 01813 6 324.00 mg/dL 53700 007 30723 3 98.00 Tympanic 40755 007 15836 7 324.00 mg/dL 20373 008 00135 0 98.00 Tympanic 61785 008 08307 2 97.90 Tympanic 74997 008 57764 0 98.20 Tympanic 46987 008 66186 0 73.00 mm[Hg] - Sitting 156.00 mm[Hg] - Sitting 98.60 Tympanic 99.00 % 66.00/ min 20.00/min 10197 008 46209 5 137.00 mg/dL 83964 008 98097 7 137.00 mg/dL 06819 008 64021 2 97.90 Tympanic 70085 008 54433 1 137.00 mg/dL 23378 008 28249 8 97.90 Tympanic 76940 008 33550 5 67.00 mm[Hg] - Sitting 124.00 /min 07492 008 45763 6 212.00 mg/dL 52971 008 63128 6 212.00 mg/dL 48372 008 52119 9 317.00 mg/dL 34357 008 40579 4 317.00 mg/dL 50412 008 66234 8 252.00 mg/dL 23208 008 43562 0 98.70 Tympanic 60465 008 92503 7 252.00 mg/dL 03564 008 26374 3 98.70 Tympanic 57172 009 33662 9 98.70 Tympanic 80508 009 67917 3 98.20 Tympanic 27519 009 36237 5 98.40 Tympanic 45980 009 27778 5 57.00 mm[Hg] - Sitting 129.00 mm[Hg] - Sitting 98.30 Tympanic 97.00 % 65.00/ min 18.00/min 04462 009 85769 1 255.00 mg/dL 93654 009 39273 4 255.00 mg/dL 04163 009 81416 5 98.20 Tympanic 77010 009 15159 0 255.00 mg/dL 93064 009 63959 0 98.20 Tympanic 24840 009 15597 4 63.00 mm[Hg] - Lying Down 102.00 mm[Hg] - Lying Down 58.00/ min 84978 009 52547 0 167.00 mg/dL 82870 009 16941 1 167.00 mg/dL 85379 009 06796 2 164.00 mg/dL 76311 009 36006 1 164.00 mg/dL 59368 009 26915 5 208.00 mg/dL 59420 010 59096 3 98.40 Tympanic 91531 010 36705 5 98.40 Tympanic 17379 010 36654 7 66 NI 39768 010 07429 4 60.00 mm[Hg] - Sitting 143.00 mm[Hg] - Sitting 98.90 Tympanic 98.00 % 67.00/ min 18.00/min 68953 010 24022 2 214.00 mg/dL 30033 010 94277 0 214.00 mg/dL 66646 010 39613 7 214.00 mg/dL 62769 010 84845 6 64.00 mm[Hg] - Sitting 110.00 mm[Hg] - Sitting 72.00/ min 09654 010 83805 7 98.40 Tympanic 40430 010 65766 1 212.00 mg/dL 95950 010 59986 2 212.00 mg/dL 71591 010 72408 1 115.00 mg/dL 45837 010 97095 0 115.00 mg/dL 70109 010 29571 4 98.50 Tympanic 91382 010 45208 4 150.00 mg/dL 47754 010 61290 0 150.00 mg/dL 22367 011 46139 9 98.60 Tympanic 99276 011 69736 1 67.00 mm[Hg] - Sitting 144.00 mm[Hg] - Sitting 98.20 Tympanic 98.00 % 61.00/ min 18.00/min 35736 011 12999 7 290.00 mg/dL 11395 011 63309 2 290.00 mg/dL 73103 011 18559 2 290.00 mg/dL 55501 011 70914 7 54.00 mm[Hg] - Sitting 136.00 mm[Hg] - Sitting 101.00 /min 19647 011 33288 7 98.60 Tympanic 12188 011 39038 5 240.00 mg/dL 33032 011 18176 1 240.00 mg/dL 65716 011 69147 1 156.00 mg/dL 11503 011 73873 9 156.00 mg/dL 17432 011 90433 0 97.80 Tympanic 61950 011 00517 8 343.00 mg/dL 84985 012 50105 9 97.90 Tympanic 29402 012 37047 2 466.00 mg/dL 11867 012 28991 1 466.00 mg/dL 54412 012 10138 3 466.00 mg/dL 98064 012 65740 8 97.90 Tympanic 00183 012 06062 8 56.00 mm[Hg] - Sitting 96.00 mm[Hg] - Sitting 61.00/ min 37317 012 51273 7 350.00 mg/dL 78602 012 13360 5 350.00 mg/dL 84200 012 89957 6 111.00 mg/dL 71982 012 75012 0 111.00 mg/dL 68931 012 72005 5 98.40 Tympanic 52857 012 29682 6 114.00 mg/dL 85154 013 34236 4 74.00 mm[Hg] - Sitting 112.00 mm[Hg] - Sitting 98.40 Tympanic 70.00/ min 18.00/min 03087 013 83740 8 244.00 mg/dL 19909 013 14364 7 244.00 mg/dL 00237 013 31258 1 244.00 mg/dL 84813 013 63101 1 98.20 Tympanic 72603 013 59423 7 72.00 mm[Hg] - Sitting 119.00 mm[Hg] - Sitting 76.00/ min 11310 013 13347 7 253.00 mg/dL 16288 013 22447 4 253.00 mg/dL 27748 013 34863 9 156.00 mg/dL 57151 013 87351 5 156.00 mg/dL 07453 013 81263 4 97.90 Tympanic 80994 013 53917 5 189.00 mg/dL 69377 014 40936 9 98.10 Tympanic 83078 014 41843 0 61.00 mm[Hg] - Sitting 139.00 mm[Hg] - Sitting 98.20 Forehead Scan 99.00 % 66.00/ min 18.00/min 86985 014 05205 3 169.00 mg/dL 38750 014 64921 3 98.10 Tympanic 94543 014 78244 3 75.00 mm[Hg] - Sitting 121.00 mm[Hg] - Sitting 71.00/ min 94948 014 44457 9 221.00 mg/dL 91029 014 77086 9 62.00 mg/dL 12279 014 32572 5 62.00 mg/dL 14426 014 15755 8 156.00 mg/dL 24244 014 68408 6 98.10 Tympanic 85003 014 69402 7 156.00 mg/dL Immunizations Vaccine Date Status COVID-19 09/20/2023 Completed Other 10/08/2023 Completed Shingles 05/27/2011 Completed Tetanus 04/13/2022 Completed TDaP 04/13/2022 Completed Shingles 2 10/05/2018 Completed
--- OUTSIDE RECORDS SUMMARY | 2024-10-03 11:13 | External Medical Summary | Continuity Of Care Document ---
Author Name Unknown Address [address] [address] Organization [facility] () Care Team Providers Care [employer] Driver Name Role Phone DO Machado Amy Primary Care Provider [phone] Allergies Allergy Reaction Start Date End Date [...] 3 0.1 mL 08/29 Inactiv e 2023 61548 70581 0 1 time Intrad ermal False Tubersol 5 tub. unit/0.1 mL intradermal injection solution [Tuberculin PPD] 0.1mL Intradermal 1 time For PPD 2nd Step Give 2nd Step PPD Day 1 and Read results Day 3 (schedule 7 days after 1st READ) 0.1mL 09/08 Active 2023 41415 54433 0 1 time Intrad ermal False Humalog [...] order For Diabetes 08/25 Inactiv e 2023 40731 40172 9 4 times a day Subcut aneous False Aspirin 325 mg tablet [generic] 325 By Mouth Twice daily For Anticoagulati on 325 09/25 Active 2023 49258 49473 1 Twice daily By Mouth False Ferrous sulfate 325 mg (65 mg iron) tablet [generic] 325 By Mouth Once daily For anemia 325 2023 Active 2023 19985 38183 5 Once daily By Mouth False Linezolid 600 mg tablet [generic] 600 mg By Mouth Every 12 hours For MRSA INFECTION L BKA 600 mg 08/25 Inactiv e 2023 00364 89292 1 Every 12 hours By Mouth False Cefpodoxime 200 mg tablet [generic] 400 mg By Mouth Twice daily For MRSA INFECTION L BKA 400 mg 08/25 Inactiv e 2023 50826 30121 0 Twice daily By Mouth False Coenzyme Q10 100 mg tablet [generic] 100 mg By Mouth Once daily For SUPP 100 mg 2023 Active 2023 51509 02950 0 Once daily By Mouth False Levothyroxi ne 50 mcg tablet [generic] 50mcg By Mouth Once daily For hypothyroidis m 50mcg 2023 Active 2023 57075 19728 0 Once daily By Mouth False One A Day Men Complete 240 mcg-25 mcg-300 mcg tablet 1 tab By Mouth Once daily For supplement 1 tab 2023 Active 2023 56135 05443 1 Once daily By Mouth False Cholecalcif adalberto (vitamin D3) 50 mcg (2,000 unit) tablet [generic] 1 TAB By Mouth Once daily For SUPP 1 TAB 2023 Active 2023 93499 67493 1 Once daily By Mouth False Cetirizine 10 mg tablet [generic] 1 TAB By Mouth At bedtime For Allergies 1 TAB 2023 Active 2023 98866 31033 0 At bedtime By Mouth False Timolol maleate 0.25 % eye drops [generic] 1 drop Both Eyes Twice daily For glaucoma 1 drop 2023 0000 /0000 Active 2023 86772 26584 5 Twice daily Both Eyes False Alendronate 35 mg tablet [generic] 35mg By Mouth Every week For SIADH 35mg 08/31 Inactiv e 2023 11113 42420 5 Every week By Mouth False Lantus Solostar U-100 Insulin 100 unit/mL (3 mL) subcutaneou s pen 18 units Subcutaneous Every morning For DIABETES 18 units 08/25 Inactiv e 2023 26593 56748 0 Every morning Subcut aneous False Lantus Solostar U-100 Insulin 100 unit/mL (3 mL) subcutaneou s pen 18 units Subcutaneous Every morning For DIABETES 18 units 2023 Active 2023 82108 08803 0 Every morning Subcut aneous False Linezolid 600 mg tablet [generic] 600 mg By Mouth Every 12 hours For MRSA INFECTION L BKA 600 mg 08/28 Inactiv e 2023 81203 91701 1 Every 12 hours By Mouth False [...] order For Diabetes 08/31 Inactiv e 2023 43815 94415 9 4 times a day Subcut aneous False Cefpodoxime 200 mg tablet [generic] 400 mg By Mouth Twice daily For MRSA INFECTION L BKA 400 mg 08/28 Inactiv e 2023 69821 22834 0 Twice daily By Mouth False Brimonidine 0.1 % eye drops [generic] 1 drop Both Eyes Twice daily For glaucoma 1 drop 2023 Active 2023 79643 63039 0 Twice daily Both Eyes False Metoprolol succinate ER 50 mg tablet,exte nded release 24 hr [generic] 50 mg By Mouth Once daily HOLD FOR SBP <100, or pulse <60 For HTN 50 mg 2023 Active 2023 57043 12593 1 Once daily By Mouth False Amlodipine 2.5 mg tablet [generic] 2.5 mg By Mouth Once daily For HTN 2.5 mg 2023 Active 2023 70387 97580 5 Once daily By Mouth False Docusate sodium 100 mg capsule [generic] 100mg By Mouth Twice daily as needed For constipation HOLD FOR LOOSE STOOLS 100mg 2023 Active 2023 36674 81743 1 Twice daily as needed By Mouth False Atorvastati n 40 mg tablet [generic] 40mg By Mouth Once daily For HDL 40mg 08/26 Inactiv e 2023 72860 40907 5 Once daily By Mouth False Tylenol 325 mg tablet 2 tabs By Mouth Every 4 hours as needed For Pain DO NOT EXCEED 3000 MG APAP/24 Hours 2 tabs 2023 Active 2023 02824 74245 0 Every 4 hours as needed By Mouth False Tylenol 325 mg tablet 2 tabs By Mouth Every 4 hours as needed For Fever >100 DO NOT EXCEED 3000 MG APAP/24 Hours 2 tabs 2023 Active 2023 36189 78287 0 Every 4 hours as needed By Mouth False Dulcolax (bisacodyl) 10 mg rectal suppository One Suppository per rectum PRN if Milk of Magnisia ineffective. Give on day 5 of no BM 1 sup 2023 Active 2023 66866 40273 1 Daily as needed Rectal False Fleet Enema 19 gram-7 gram/118 mL Administer per rectum PRN one time if dulcolax suppository not effective. Give on day 6 of no BM 1 2023 Active 2023 12811 98726 6 Daily as needed Rectal False Dextrose 50 % in water (D50W) intravenous solution [generic] Dextrose 50% evonne 20-50 ml (slow push) Intravenous if Glucagon not effective after 15 minutes. CALL 911 for ED Evaluation. 50% evonne 2023 Active 2023 86918 17080 9 Intrav enous False Glucagon (HCl) Emergency Kit 1 mg solution for injection Administer Glucagon 1 mg Intramuscular if 15 minutes after GLucose Gel is administered Glucose remains less than 70 1 mg 2023 Active 2023 85798 41054 2 Intram uscula r False Glucose Gel 40 % oral gel [Dextrose] PRN If resident is unable to swallow (with or without symptoms) and Glucose results less than 70 give GLucose 40% Gel 1 tube orally - Recheck Glucose 15 minutes after administratio n. 1 tube 2023 Active 2023 00284 67698 8 By Mouth False Milk of Magnesia 400 mg/5 mL oral suspension [Magnesium hydroxide] PRN 30ml By Mouth Daily as needed for constipation one time daily if no BM, on day 4 of no BM (PRN refer to instructions) For Constipation 30 mL 2023 Active 2023 56595 13246 6 Daily as needed By Mouth False Atorvastati n 40 mg tablet [generic] 08/26 Inactiv e 2023 75068 13388 5 Atorvastati n 40 mg tablet [generic] 40mg By Mouth Once daily For HDL 40mg 2023 Active 2023 89780 72318 5 Once daily By Mouth False Insulin aspart (U-100) 100 unit/mL (3 mL) subcutaneou s pen [generic] 15 units Subcutaneous 1 time For dm 15 units 08/26 Inactiv e 2023 69057 09020 5 1 time Subcut aneous False Humalog KwikPen (U-100) Insulin 100 unit/mL subcutaneou s 15 units Subcutaneous 1 time For dm 15 units 08/27 Inactiv e 2023 55157 98378 9 1 time Subcut aneous False Linezolid 600 mg tablet [generic] 600 mg By Mouth Every 12 hours For MRSA INFECTION L BKA 600 mg 09/06 Active 2023 70794 47539 1 Every 12 hours By Mouth False Cefpodoxime 200 mg tablet [generic] 400 mg By Mouth Twice daily For MRSA INFECTION L BKA 400 mg 08/31 Inactiv e 2023 56009 77745 0 Twice daily By Mouth False Senna 8.6 mg tablet 8.6 mg By Mouth Once daily For Constipation 8.6 mg 2023 Active 2023 43959 21100 1 Once daily By Mouth False Humalog [...] abnormalities . Per Carb 2023 Active 2023 92908 77360 9 4 times a day Subcut aneous False Alendronate 35 mg tablet [generic] 08/31 Inactiv e 2023 28565 78078 5 Alendronate 35 mg tablet [generic] 35mg By Mouth Every week For Osteoporosis 35mg 2023 Active 2023 17234 07016 5 Every week By Mouth False ProSource 10 gram-100 kcal/30 mL oral liquid 30 ml By Mouth Once daily For wound healing 30 ml 2023 Active 2023 97190 42543 2 Once daily By Mouth False Clotrimazol e 1 % topical cream [generic] 1 applicaiton Topical Twice daily For tinea, apply to groin rash after cleansing and throughouly drying. Can discontinue order 3 days after rash resolves. 1 applica stacy 09/19 Active 2023 82041 76697 0 Twice daily Topica l False Humalog KwikPen (U-100) Insulin 100 unit/mL subcutaneou s 08/31 Inactiv e 2023 84500 81666 9 MediHoney HCS 4 1/2in X 4 1/2in bandage Cleanse area with NSS, apply one medihoney hydrocolloid dressing, non adherent dressing, kerlix secure with paper tape daily. For wound stage III 1 2023 Active 2023 06452 34303 1 Once daily Topica l False Problems [...] weight Temperature SpO2 Blood Sugar Pulse Respirations 92201 8 67.00 mm[Hg] - Sitting 145.00 mm[Hg] - Sitting 98.50 Forehead Scan 96.00 % 81.00/ min 16.00/min 004 11964 2 67.00 mm[Hg] - Sitting 145.00 mm[Hg] - Sitting 98.50 Tympanic 81.00/ min 16.00/min 34892 004 46686 5 56.00 mm[Hg] - Sitting 142.00 mm[Hg] - Sitting 136.40 NI 100.20 Tympanic 96.00 % 92.00/ min 18.00/min 65761 004 23572 6 70830 004 99959 4 143.00 mg/dL 40339 0 97.80 Tympanic 005 79027 7 60.00 mm[Hg] - Sitting 140.00 mm[Hg] - Sitting 98.00 Tympanic 84.00/ min 18.00/min 48493 005 08803 0 63.00 mm[Hg] - Sitting 141.00 mm[Hg] - Sitting 98.20 Tympanic 92.00 % 63.00/ min 16.00/min 30404 005 75059 8 69.00 mm[Hg] - Sitting 106.00 mm[Hg] - Sitting 97.20 Tympanic 005 92463 7 69.00/ min 16.00/min 69681 005 54472 3 69.00 mm[Hg] - Sitting 106.00 mm[Hg] - Sitting 98.20 Tympanic 69.00/ min 16.00/min 18165 005 79403 1 367.00 mg/dL 94080 005 75400 2 97.20 Tympanic 39936 005 61813 4 97.20 Tympanic 09393 005 81678 0 69.00 mm[Hg] - Sitting 106.00 mm[Hg] - Sitting 69.00/ min 90346 005 47567 3 452.00 mg/dL 35736 005 76134 3 452.00 mg/dL 43699 005 87262 5 352.00 mg/dL 53569 005 23833 3 352.00 mg/dL 62838 005 64436 7 98.20 Tympanic 71795 005 3 101.00 mg/dL 39630 005 8 101.00 mg/dL 43606 006 69978 4 66.00 mm[Hg] - Sitting 107.00 mm[Hg] - Sitting 98.00 Tympanic 66.00/ min 18.00/min 06487 006 59993 0 62.00 mm[Hg] - Sitting 162.00 mm[Hg] - Sitting 98.20 Tympanic 96.00 % 60.00/ min 16.00/min 99322 006 39459 4 62.00 mm[Hg] - Sitting 162.00 mm[Hg] - Sitting 98.00 Tympanic 70.00/ min 18.00/min 01196 006 01560 8 62.00 mm[Hg] - Sitting 162.00 mm[Hg] - Sitting 98.20 Tympanic 70.00/ min 18.00/min 00734 006 59570 2 66.00 mm[Hg] - Sitting 132.00 mm[Hg] - Sitting 98.60 Tympanic 74.00/ min 16.00/min 20738 006 00921 5 159.00 mg/dL 29199 006 29065 1 159.00 mg/dL 35083 006 48985 8 98.00 Tympanic 44497 006 38721 2 62.00 mm[Hg] - Sitting 162.00 mm[Hg] - Sitting 70.00/ min 55490 006 80232 7 264.00 mg/dL 34260 006 48460 7 264.00 mg/dL 01220 006 09669 4 196.00 mg/dL 71731 006 11015 3 98.20 Tympanic 79934 006 77980 6 271.00 mg/dL 12914 007 41246 3 97.20 Tympanic 17056 007 25723 2 63.00 mm[Hg] - Sitting 132.00 mm[Hg] - Sitting 98.50 Tympanic 94.00 % 66.00/ min 16.00/min 05584 007 05600 5 188.00 mg/dL 93698 007 03258 2 188.00 mg/dL 04369 007 69938 2 188.00 mg/dL 58861 007 90742 7 97.20 Tympanic 78884 007 35770 6 97.20 Tympanic 93971 007 83237 5 67.00 mm[Hg] - Sitting 152.00 mm[Hg] - Sitting 68.00/ min 64719 007 18764 0 141.00 mg/dL 49210 007 19315 3 141.00 mg/dL 64682 007 15693 1 366.00 mg/dL 51992 007 96186 7 366.00 mg/dL 26319 007 51283 7 98.00 Tympanic 87571 007 22099 6 324.00 mg/dL 86252 007 28548 3 98.00 Tympanic 07939 007 68677 7 324.00 mg/dL 01050 008 69225 0 98.00 Tympanic 38986 008 71167 2 97.90 Tympanic 00118 008 83058 0 98.20 Tympanic 29552 008 83212 0 73.00 mm[Hg] - Sitting 156.00 mm[Hg] - Sitting 98.60 Tympanic 99.00 % 66.00/ min 20.00/min 86302 008 67334 5 137.00 mg/dL 67049 008 54117 7 137.00 mg/dL 25217 008 93661 2 97.90 Tympanic 39886 008 37671 1 137.00 mg/dL 52156 008 23111 8 97.90 Tympanic 80406 008 86645 5 67.00 mm[Hg] - Sitting 124.00 /min 34003 008 90235 6 212.00 mg/dL 10520 008 20690 6 212.00 mg/dL 58025 008 80200 9 317.00 mg/dL 23149 008 12613 4 317.00 mg/dL 71365 008 21386 8 252.00 mg/dL 78797 008 33240 0 98.70 Tympanic 61514 008 41110 7 252.00 mg/dL 64060 008 90811 3 98.70 Tympanic 31548 009 66251 9 98.70 Tympanic 61162 009 10695 3 98.20 Tympanic 74710 009 50890 5 98.40 Tympanic 15140 009 21706 5 57.00 mm[Hg] - Sitting 129.00 mm[Hg] - Sitting 98.30 Tympanic 97.00 % 65.00/ min 18.00/min 06927 009 73581 1 255.00 mg/dL 38311 009 36329 4 255.00 mg/dL 15985 009 38719 5 98.20 Tympanic 90115 009 82600 0 255.00 mg/dL 70543 009 65051 0 98.20 Tympanic 37936 009 61400 4 63.00 mm[Hg] - Lying Down 102.00 mm[Hg] - Lying Down 58.00/ min 48083 009 00830 0 167.00 mg/dL 46337 009 41458 1 167.00 mg/dL 32323 009 48250 2 164.00 mg/dL 38626 009 47360 1 164.00 mg/dL 24840 009 34932 5 208.00 mg/dL 78813 010 16257 3 98.40 Tympanic 64890 010 32236 5 98.40 Tympanic 95929 010 21961 7 66 [place] [address] 010 00631 4 60.00 mm[Hg] - Sitting 143.00 mm[Hg] - Sitting 98.90 Tympanic 98.00 % 67.00/ min 18.00/min 52385 010 89610 2 214.00 mg/dL 02366 010 94940 0 214.00 mg/dL 56043 010 82227 7 214.00 mg/dL 55945 010 13774 6 64.00 mm[Hg] - Sitting 110.00 mm[Hg] - Sitting 72.00/ min 06183 010 65242 7 98.40 Tympanic 54601 010 79267 1 212.00 mg/dL 12411 010 33823 2 212.00 mg/dL 03115 010 55027 1 115.00 mg/dL 64276 010 04570 0 115.00 mg/dL 27901 010 08144 4 98.50 Tympanic 95746 010 18264 4 150.00 mg/dL 19203 010 71817 0 150.00 mg/dL 75649 011 89154 9 98.60 Tympanic 44347 011 73315 1 67.00 mm[Hg] - Sitting 144.00 mm[Hg] - Sitting 98.20 Tympanic 98.00 % 61.00/ min 18.00/min 83047 011 07456 7 290.00 mg/dL 75555 011 11471 2 290.00 mg/dL 48403 011 86048 2 290.00 mg/dL 57618 011 65446 7 54.00 mm[Hg] - Sitting 136.00 mm[Hg] - Sitting 101.00 /min 99290 011 87238 7 98.60 Tympanic 21834 011 34408 5 240.00 mg/dL 27870 011 07650 1 240.00 mg/dL 10053 011 14737 1 156.00 mg/dL 12744 011 91195 9 156.00 mg/dL 60424 011 04333 0 97.80 Tympanic 92341 011 71164 8 343.00 mg/dL 14653 012 16749 9 97.90 Tympanic 39393 012 76640 2 466.00 mg/dL 85714 012 28999 1 466.00 mg/dL 91207 012 62317 3 466.00 mg/dL 22224 012 59075 8 97.90 Tympanic 16721 012 01779 8 56.00 mm[Hg] - Sitting 96.00 mm[Hg] - Sitting 61.00/ min 90055 012 39778 7 350.00 mg/dL 92370 012 66168 5 350.00 mg/dL 86877 012 23682 6 111.00 mg/dL 88699 012 80851 0 111.00 mg/dL 73027 012 83545 5 98.40 Tympanic 03459 012 89785 6 114.00 mg/dL 39437 013 61578 4 74.00 mm[Hg] - Sitting 112.00 mm[Hg] - Sitting 98.40 Tympanic 70.00/ min 18.00/min 10866 013 05053 8 244.00 mg/dL 73162 013 90032 7 244.00 mg/dL 77950 013 18237 1 244.00 mg/dL 60444 013 85057 1 98.20 Tympanic 94776 013 35809 7 72.00 mm[Hg] - Sitting 119.00 mm[Hg] - Sitting 76.00/ min 76805 013 21677 7 253.00 mg/dL 51991 013 65421 4 253.00 mg/dL 32347 013 40124 9 156.00 mg/dL 03624 013 07496 5 156.00 mg/dL 11157 013 05431 4 97.90 Tympanic 22973 013 31464 5 189.00 mg/dL 68730 014 97537 9 98.10 Tympanic 91921 014 33089 0 61.00 mm[Hg] - Sitting 139.00 mm[Hg] - Sitting 98.20 Forehead Scan 99.00 % 66.00/ min 18.00/min 02179 014 51818 3 169.00 mg/dL 73489 014 47479 3 98.10 Tympanic 96799 014 80688 3 75.00 mm[Hg] - Sitting 121.00 mm[Hg] - Sitting 71.00/ min 92233 014 56350 9 221.00 mg/dL 45343 014 85762 9 62.00 mg/dL 00853 014 10758 5 62.00 mg/dL 12472 014 09592 8 156.00 mg/dL 75923 014 62992 6 98.10 Tympanic 07358 014 58664 7 156.00 mg/dL Immunizations Vaccine Date Status COVID-19 09/20/2023 Completed Other 10/08/2023 Completed Shingles 05/27/2011 Completed Tetanus 04/13/2022 Completed TDaP 04/13/2022 Completed Shingles 2 10/05/2018 Completed
--- OUTSIDE RECORDS SUMMARY | 2024-10-03 11:13 | External Medical Summary | Continuity Of Care Document ---
Author Name Unknown Address [address] [address] Organization [facility] () Care Team Providers Care Manager Endoscopy Name Role Phone DO Machado Amy Primary Care Provider [phone] Allergies Allergy Reaction Start Date End Date [...] 3 0.1 mL 08/29 Inactiv e 2023 23951 94766 0 1 time Intrad ermal False Tubersol 5 tub. unit/0.1 mL intradermal injection solution [Tuberculin PPD] 0.1mL Intradermal 1 time For PPD 2nd Step Give 2nd Step PPD Day 1 and Read results Day 3 (schedule 7 days after 1st READ) 0.1mL 09/08 Active 2023 20888 14065 0 1 time Intrad ermal False Humalog [...] order For Diabetes 08/25 Inactiv e 2023 67468 69119 9 4 times a day Subcut aneous False Aspirin 325 mg tablet [generic] 325 By Mouth Twice daily For Anticoagulati on 325 09/25 Active 2023 14873 92831 1 Twice daily By Mouth False Ferrous sulfate 325 mg (65 mg iron) tablet [generic] 325 By Mouth Once daily For anemia 325 2023 Active 2023 23459 22797 5 Once daily By Mouth False Linezolid 600 mg tablet [generic] 600 mg By Mouth Every 12 hours For MRSA INFECTION L BKA 600 mg 08/25 Inactiv e 2023 05673 17979 1 Every 12 hours By Mouth False Cefpodoxime 200 mg tablet [generic] 400 mg By Mouth Twice daily For MRSA INFECTION L BKA 400 mg 08/25 Inactiv e 2023 76194 80352 0 Twice daily By Mouth False Coenzyme Q10 100 mg tablet [generic] 100 mg By Mouth Once daily For SUPP 100 mg 2023 Active 2023 17438 29033 0 Once daily By Mouth False Levothyroxi ne 50 mcg tablet [generic] 50mcg By Mouth Once daily For hypothyroidis m 50mcg 2023 Active 2023 57383 91299 0 Once daily By Mouth False One A Day Men Complete 240 mcg-25 mcg-300 mcg tablet 1 tab By Mouth Once daily For supplement 1 tab 2023 Active 2023 48427 67708 1 Once daily By Mouth False Cholecalcif adalberto (vitamin D3) 50 mcg (2,000 unit) tablet [generic] 1 TAB By Mouth Once daily For SUPP 1 TAB 2023 Active 2023 28259 10756 1 Once daily By Mouth False Cetirizine 10 mg tablet [generic] 1 TAB By Mouth At bedtime For Allergies 1 TAB 2023 Active 2023 82331 93862 0 At bedtime By Mouth False Timolol maleate 0.25 % eye drops [generic] 1 drop Both Eyes Twice daily For glaucoma 1 drop 2023 0000 /0000 Active 2023 12889 07764 5 Twice daily Both Eyes False Alendronate 35 mg tablet [generic] 35mg By Mouth Every week For SIADH 35mg 08/31 Inactiv e 2023 35488 98208 5 Every week By Mouth False Lantus Solostar U-100 Insulin 100 unit/mL (3 mL) subcutaneou s pen 18 units Subcutaneous Every morning For DIABETES 18 units 08/25 Inactiv e 2023 39470 57879 0 Every morning Subcut aneous False Lantus Solostar U-100 Insulin 100 unit/mL (3 mL) subcutaneou s pen 18 units Subcutaneous Every morning For DIABETES 18 units 2023 Active 2023 11721 50076 0 Every morning Subcut aneous False Linezolid 600 mg tablet [generic] 600 mg By Mouth Every 12 hours For MRSA INFECTION L BKA 600 mg 08/28 Inactiv e 2023 22105 46826 1 Every 12 hours By Mouth False [...] order For Diabetes 08/31 Inactiv e 2023 17913 79263 9 4 times a day Subcut aneous False Cefpodoxime 200 mg tablet [generic] 400 mg By Mouth Twice daily For MRSA INFECTION L BKA 400 mg 08/28 Inactiv e 2023 23934 90394 0 Twice daily By Mouth False Brimonidine 0.1 % eye drops [generic] 1 drop Both Eyes Twice daily For glaucoma 1 drop 2023 Active 2023 82396 93827 0 Twice daily Both Eyes False Metoprolol succinate ER 50 mg tablet,exte nded release 24 hr [generic] 50 mg By Mouth Once daily HOLD FOR SBP <100, or pulse <60 For HTN 50 mg 2023 Active 2023 73453 36363 1 Once daily By Mouth False Amlodipine 2.5 mg tablet [generic] 2.5 mg By Mouth Once daily For HTN 2.5 mg 2023 Active 2023 96345 09996 5 Once daily By Mouth False Docusate sodium 100 mg capsule [generic] 100mg By Mouth Twice daily as needed For constipation HOLD FOR LOOSE STOOLS 100mg 2023 Active 2023 52059 04936 1 Twice daily as needed By Mouth False Atorvastati n 40 mg tablet [generic] 40mg By Mouth Once daily For HDL 40mg 08/26 Inactiv e 2023 79646 75207 5 Once daily By Mouth False Tylenol 325 mg tablet 2 tabs By Mouth Every 4 hours as needed For Pain DO NOT EXCEED 3000 MG APAP/24 Hours 2 tabs 2023 Active 2023 41818 44443 0 Every 4 hours as needed By Mouth False Tylenol 325 mg tablet 2 tabs By Mouth Every 4 hours as needed For Fever >100 DO NOT EXCEED 3000 MG APAP/24 Hours 2 tabs 2023 Active 2023 70529 32349 0 Every 4 hours as needed By Mouth False Dulcolax (bisacodyl) 10 mg rectal suppository One Suppository per rectum PRN if Milk of Magnisia ineffective. Give on day 5 of no BM 1 sup 2023 Active 2023 94093 86557 1 Daily as needed Rectal False Fleet Enema 19 gram-7 gram/118 mL Administer per rectum PRN one time if dulcolax suppository not effective. Give on day 6 of no BM 1 2023 Active 2023 43587 45141 6 Daily as needed Rectal False Dextrose 50 % in water (D50W) intravenous solution [generic] Dextrose 50% evonne 20-50 ml (slow push) Intravenous if Glucagon not effective after 15 minutes. CALL 911 for ED Evaluation. 50% evonne 2023 Active 2023 91194 71698 9 Intrav enous False Glucagon (HCl) Emergency Kit 1 mg solution for injection Administer Glucagon 1 mg Intramuscular if 15 minutes after GLucose Gel is administered Glucose remains less than 70 1 mg 2023 Active 2023 79774 52799 2 Intram uscula r False Glucose Gel 40 % oral gel [Dextrose] PRN If resident is unable to swallow (with or without symptoms) and Glucose results less than 70 give GLucose 40% Gel 1 tube orally - Recheck Glucose 15 minutes after administratio n. 1 tube 2023 Active 2023 81098 87783 8 By Mouth False Milk of Magnesia 400 mg/5 mL oral suspension [Magnesium hydroxide] PRN 30ml By Mouth Daily as needed for constipation one time daily if no BM, on day 4 of no BM (PRN refer to instructions) For Constipation 30 mL 2023 Active 2023 27377 99703 6 Daily as needed By Mouth False Atorvastati n 40 mg tablet [generic] 08/26 Inactiv e 2023 03540 02108 5 Atorvastati n 40 mg tablet [generic] 40mg By Mouth Once daily For HDL 40mg 2023 Active 2023 33288 64811 5 Once daily By Mouth False Insulin aspart (U-100) 100 unit/mL (3 mL) subcutaneou s pen [generic] 15 units Subcutaneous 1 time For dm 15 units 08/26 Inactiv e 2023 85542 67286 5 1 time Subcut aneous False Humalog KwikPen (U-100) Insulin 100 unit/mL subcutaneou s 15 units Subcutaneous 1 time For dm 15 units 08/27 Inactiv e 2023 79937 41369 9 1 time Subcut aneous False Linezolid 600 mg tablet [generic] 600 mg By Mouth Every 12 hours For MRSA INFECTION L BKA 600 mg 09/06 Active 2023 54050 84104 1 Every 12 hours By Mouth False Cefpodoxime 200 mg tablet [generic] 400 mg By Mouth Twice daily For MRSA INFECTION L BKA 400 mg 08/31 Inactiv e 2023 37626 58714 0 Twice daily By Mouth False Senna 8.6 mg tablet 8.6 mg By Mouth Once daily For Constipation 8.6 mg 2023 Active 2023 58440 78809 1 Once daily By Mouth False Humalog [...] abnormalities . 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 08/25/2024 Active [...] hormone 08/25/2024 Active E11.40 Type 2 diabetes carmeilta itus with diabetic neuropathy, unspecified 08/25/2024 Active E11.319 Type 2 diabetes carmelita itus with unspecified diabetic retinopathy without macular edema 08/25/2024 Active B95.62 Methicillin resistan t Staphylococcus aureus infection as the cause of diseases classified elsewhere 08/25/2024 Active VITAL SIGNS Date Time Diastolic blood pressure Systolic blood pressure Body height Body weight Temperature SpO2 Blood Sugar Pulse Respirations 004 85855 8 67.00 mm[Hg] - Sitting 145.00 mm[Hg] - Sitting 98.50 Forehead Scan 96.00 % 81.00/ min 16.00/min 78216 004 02717 2 67.00 mm[Hg] - Sitting 145.00 mm[Hg] - Sitting 98.50 Tympanic 81.00/ min 16.00/min 19169 004 99647 5 56.00 mm[Hg] - Sitting 142.00 mm[Hg] - Sitting 136.40 NI 100.20 Tympanic 96.00 % 92.00/ min 18.00/min 57997 004 86351 6 13666 004 55504 4 143.00 mg/dL 24691 004 48734 0 97.80 Tympanic 10164 005 41621 7 60.00 mm[Hg] - Sitting 140.00 mm[Hg] - Sitting 98.00 Tympanic 84.00/ min 18.00/min 05287 005 51160 0 63.00 mm[Hg] - Sitting 141.00 mm[Hg] - Sitting 98.20 Tympanic 92.00 % 63.00/ min 16.00/min 85909 005 75872 8 69.00 mm[Hg] - Sitting 106.00 mm[Hg] - Sitting 97.20 Tympanic 49649 005 15729 7 69.00/ min 16.00/min 67606 005 03373 3 69.00 mm[Hg] - Sitting 106.00 mm[Hg] - Sitting 98.20 Tympanic 69.00/ min 16.00/min 70843 005 26796 1 367.00 mg/dL 10271 005 34296 2 97.20 Tympanic 85044 005 83060 4 97.20 Tympanic 15800 005 15922 0 69.00 mm[Hg] - Sitting 106.00 mm[Hg] - Sitting 69.00/ min 24570 005 66489 3 452.00 mg/dL 67425 005 45020 3 452.00 mg/dL 06646 005 25332 5 352.00 mg/dL 77906 005 48084 3 352.00 mg/dL 62089 005 35483 7 98.20 Tympanic 67254 005 78253 3 101.00 mg/dL 29449 005 8 101.00 mg/dL 67437 006 19246 4 66.00 mm[Hg] - Sitting 107.00 mm[Hg] - Sitting 98.00 Tympanic 66.00/ min 18.00/min 65363 006 47254 0 62.00 mm[Hg] - Sitting 162.00 mm[Hg] - Sitting 98.20 Tympanic 96.00 % 60.00/ min 16.00/min 19995 006 01546 4 62.00 mm[Hg] - Sitting 162.00 mm[Hg] - Sitting 98.00 Tympanic 70.00/ min 18.00/min 77680 006 75451 8 62.00 mm[Hg] - Sitting 162.00 mm[Hg] - Sitting 98.20 Tympanic 70.00/ min 18.00/min 01718 006 37375 2 66.00 mm[Hg] - Sitting 132.00 mm[Hg] - Sitting 98.60 Tympanic 74.00/ min 16.00/min 38035 006 90954 5 159.00 mg/dL 61420 006 86067 1 159.00 mg/dL 97720 006 02669 8 98.00 Tympanic 01714 006 01747 2 62.00 mm[Hg] - Sitting 162.00 mm[Hg] - Sitting 70.00/ min 49289 006 96437 7 264.00 mg/dL 78993 006 02144 7 264.00 mg/dL 38966 006 78688 4 196.00 mg/dL 82704 006 52929 3 98.20 Tympanic 52744 006 39877 6 271.00 mg/dL 13757 007 41022 3 97.20 Tympanic 82012 007 41234 2 63.00 mm[Hg] - Sitting 132.00 mm[Hg] - Sitting 98.50 Tympanic 94.00 % 66.00/ min 16.00/min 69795 007 29543 5 188.00 mg/dL 38329 007 01432 2 188.00 mg/dL 48643 007 49987 2 188.00 mg/dL 88389 007 17880 7 97.20 Tympanic 09646 007 01602 6 97.20 Tympanic 44317 007 34369 5 67.00 mm[Hg] - Sitting 152.00 mm[Hg] - Sitting 68.00/ min 31302 007 29995 0 141.00 mg/dL 92256 007 98167 3 141.00 mg/dL 84469 007 64594 1 366.00 mg/dL 40607 007 52742 7 366.00 mg/dL 62059 007 99604 7 98.00 Tympanic 15059 007 49912 6 324.00 mg/dL 15297 007 12958 3 98.00 Tympanic 02468 007 63302 7 324.00 mg/dL 88719 008 25677 0 98.00 Tympanic 94840 008 78249 2 97.90 Tympanic 24783 008 29151 0 98.20 Tympanic 38255 008 54054 0 73.00 mm[Hg] - Sitting 156.00 mm[Hg] - Sitting 98.60 Tympanic 99.00 % 66.00/ min 20.00/min 32830 008 79519 5 137.00 mg/dL 20722 008 14615 7 137.00 mg/dL 44473 008 09759 2 97.90 Tympanic 72841 008 92490 1 137.00 mg/dL 02310 008 81903 8 97.90 Tympanic 93044 008 80165 5 67.00 mm[Hg] - Sitting 124.00 /min 74073 008 22941 6 212.00 mg/dL 35174 008 30943 6 212.00 mg/dL 16537 008 25135 9 317.00 mg/dL 13189 008 64343 4 317.00 mg/dL 89198 008 15531 8 252.00 mg/dL 98202 008 25245 0 98.70 Tympanic 19190 008 21767 7 252.00 mg/dL 40488 008 99085 3 98.70 Tympanic 38290 009 07329 9 98.70 Tympanic 45062 009 16335 3 98.20 Tympanic 98784 009 03861 5 98.40 Tympanic 56146 009 67315 5 57.00 mm[Hg] - Sitting 129.00 mm[Hg] - Sitting 98.30 Tympanic 97.00 % 65.00/ min 18.00/min 31940 009 57824 1 255.00 mg/dL 01991 009 22744 4 255.00 mg/dL 96993 009 04737 5 98.20 Tympanic 94106 009 61472 0 255.00 mg/dL 19597 009 68673 0 98.20 Tympanic 82057 009 79500 4 63.00 mm[Hg] - Lying Down 102.00 mm[Hg] - Lying Down 58.00/ min 44870 009 01724 0 167.00 mg/dL 05411 009 43509 1 167.00 mg/dL 95570 009 19853 2 164.00 mg/dL 64404 009 77439 1 164.00 mg/dL 47644 009 77493 5 208.00 mg/dL 75276 010 15731 3 98.40 Tympanic 28720 010 14521 5 98.40 Tympanic 33816 010 99048 7 66 [place] [address] 010 73321 4 60.00 mm[Hg] - Sitting 143.00 mm[Hg] - Sitting 98.90 Tympanic 98.00 % 67.00/ min 18.00/min 01697 010 51739 2 214.00 mg/dL 33621 010 52837 0 214.00 mg/dL 74936 010 47734 7 214.00 mg/dL 90213 010 85809 6 64.00 mm[Hg] - Sitting 110.00 mm[Hg] - Sitting 72.00/ min 99894 010 46475 7 98.40 Tympanic 69952 010 38834 1 212.00 mg/dL 10502 010 16300 2 212.00 mg/dL 12059 010 10768 1 115.00 mg/dL 78878 010 73163 0 115.00 mg/dL 63521 010 86781 4 98.50 Tympanic 31429 010 19659 4 150.00 mg/dL 23206 010 70231 0 150.00 mg/dL 69626 011 40914 9 98.60 Tympanic 00412 011 33998 1 67.00 mm[Hg] - Sitting 144.00 mm[Hg] - Sitting 98.20 Tympanic 98.00 % 61.00/ min 18.00/min 15615 011 60067 7 290.00 mg/dL 51400 011 88888 2 290.00 mg/dL 27382 011 07273 2 290.00 mg/dL 54034 011 35816 7 54.00 mm[Hg] - Sitting 136.00 mm[Hg] - Sitting 101.00 /min 50449 011 51302 7 98.60 Tympanic 38145 011 71792 5 240.00 mg/dL 70788 011 82599 1 240.00 mg/dL 67903 011 27663 1 156.00 mg/dL 51139 011 17554 9 156.00 mg/dL 72451 011 35474 0 97.80 Tympanic 71114 011 24650 8 343.00 mg/dL 43858 012 11613 9 97.90 Tympanic 11711 012 55906 2 466.00 mg/dL 76399 012 01961 1 466.00 mg/dL 41179 012 24045 3 466.00 mg/dL 78369 012 85231 8 97.90 Tympanic 65877 012 80772 8 56.00 mm[Hg] - Sitting 96.00 mm[Hg] - Sitting 61.00/ min 24154 012 42653 7 350.00 mg/dL 47886 012 98729 5 350.00 mg/dL 02847 012 63180 6 111.00 mg/dL 39406 012 06110 0 111.00 mg/dL 57818 012 85717 5 98.40 Tympanic 98321 012 79924 6 114.00 mg/dL 64268 013 64763 4 74.00 mm[Hg] - Sitting 112.00 mm[Hg] - Sitting 98.40 Tympanic 70.00/ min 18.00/min 14085 013 89878 8 244.00 mg/dL 92632 013 81435 7 244.00 mg/dL 93775 013 11372 1 244.00 mg/dL 14098 013 69348 1 98.20 Tympanic 86659 013 70092 7 72.00 mm[Hg] - Sitting 119.00 mm[Hg] - Sitting 76.00/ min 84201 013 44301 7 253.00 mg/dL 30675 013 44407 4 253.00 mg/dL 87873 013 23304 9 156.00 mg/dL 36032 013 44284 5 156.00 mg/dL 00709 013 99961 4 97.90 Tympanic 84173 013 94200 5 189.00 mg/dL 62955 014 50104 9 98.10 Tympanic 15855 014 01357 3 169.00 mg/dL 94843 014 52926 3 98.10 Tympanic 64124 014 69954 3 75.00 mm[Hg] - Sitting 121.00 mm[Hg] - Sitting 71.00/ min 63773 014 05175 9 221.00 mg/dL 92608 014 69324 9 62.00 mg/dL 53242 014 03535 5 62.00 mg/dL Immunizations Vaccine Date Status COVID-19 09/20/2023 Completed Other 10/08/2023 Completed Shingles 05/27/2011 Completed Tetanus 04/13/2022 Completed TDaP 04/13/2022 Completed Shingles 2 10/05/2018 Completed
--- OUTSIDE RECORDS SUMMARY | 2024-10-03 11:14 | External Medical Summary | Continuity Of Care Document ---
Author Name Unknown Address [address] [address] Organization [facility] () Care Team Providers Care Planner Scheduler Name Role Phone DO Machado Amy Primary Care Provider [phone] Allergies Allergy Reaction Start Date End Date [...] 3 0.1 mL 08/29 Inactiv e 2023 48087 66520 0 1 time Intrad ermal False Tubersol 5 tub. unit/0.1 mL intradermal injection solution [Tuberculin PPD] 0.1mL Intradermal 1 time For PPD 2nd Step Give 2nd Step PPD Day 1 and Read results Day 3 (schedule 7 days after 1st READ) 0.1mL 09/08 Active 2023 96933 65367 0 1 time Intrad ermal False Humalog [...] order For Diabetes 08/25 Inactiv e 2023 97341 06580 9 4 times a day Subcut aneous False Aspirin 325 mg tablet [generic] 325 By Mouth Twice daily For Anticoagulati on 325 09/25 Active 2023 48861 30559 1 Twice daily By Mouth False Ferrous sulfate 325 mg (65 mg iron) tablet [generic] 325 By Mouth Once daily For anemia 325 2023 Active 2023 41933 56675 5 Once daily By Mouth False Linezolid 600 mg tablet [generic] 600 mg By Mouth Every 12 hours For MRSA INFECTION L BKA 600 mg 08/25 Inactiv e 2023 68718 76366 1 Every 12 hours By Mouth False Cefpodoxime 200 mg tablet [generic] 400 mg By Mouth Twice daily For MRSA INFECTION L BKA 400 mg 08/25 Inactiv e 2023 92490 18719 0 Twice daily By Mouth False Coenzyme Q10 100 mg tablet [generic] 100 mg By Mouth Once daily For SUPP 100 mg 2023 Active 2023 03125 63900 0 Once daily By Mouth False Levothyroxi ne 50 mcg tablet [generic] 50mcg By Mouth Once daily For hypothyroidis m 50mcg 2023 Active 2023 40123 87194 0 Once daily By Mouth False One A Day Men Complete 240 mcg-25 mcg-300 mcg tablet 1 tab By Mouth Once daily For supplement 1 tab 2023 Active 2023 96424 96916 1 Once daily By Mouth False Cholecalcif adalberto (vitamin D3) 50 mcg (2,000 unit) tablet [generic] 1 TAB By Mouth Once daily For SUPP 1 TAB 2023 Active 2023 56392 98974 1 Once daily By Mouth False Cetirizine 10 mg tablet [generic] 1 TAB By Mouth At bedtime For Allergies 1 TAB 2023 Active 2023 16329 54019 0 At bedtime By Mouth False Timolol maleate 0.25 % eye drops [generic] 1 drop Both Eyes Twice daily For glaucoma 1 drop 2023 0000 /0000 Active 2023 64760 86966 5 Twice daily Both Eyes False Alendronate 35 mg tablet [generic] 35mg By Mouth Every week For SIADH 35mg 08/31 Inactiv e 2023 64594 59331 5 Every week By Mouth False Lantus Solostar U-100 Insulin 100 unit/mL (3 mL) subcutaneou s pen 18 units Subcutaneous Every morning For DIABETES 18 units 08/25 Inactiv e 2023 04927 26679 0 Every morning Subcut aneous False Lantus Solostar U-100 Insulin 100 unit/mL (3 mL) subcutaneou s pen 18 units Subcutaneous Every morning For DIABETES 18 units 2023 Active 2023 76287 53380 0 Every morning Subcut aneous False Linezolid 600 mg tablet [generic] 600 mg By Mouth Every 12 hours For MRSA INFECTION L BKA 600 mg 08/28 Inactiv e 2023 77089 46938 1 Every 12 hours By Mouth False [...] order For Diabetes 08/31 Inactiv e 2023 86372 76669 9 4 times a day Subcut aneous False Cefpodoxime 200 mg tablet [generic] 400 mg By Mouth Twice daily For MRSA INFECTION L BKA 400 mg 08/28 Inactiv e 2023 97408 21204 0 Twice daily By Mouth False Brimonidine 0.1 % eye drops [generic] 1 drop Both Eyes Twice daily For glaucoma 1 drop 2023 Active 2023 37319 87010 0 Twice daily Both Eyes False Metoprolol succinate ER 50 mg tablet,exte nded release 24 hr [generic] 50 mg By Mouth Once daily HOLD FOR SBP <100, or pulse <60 For HTN 50 mg 2023 Active 2023 49770 14133 1 Once daily By Mouth False Amlodipine 2.5 mg tablet [generic] 2.5 mg By Mouth Once daily For HTN 2.5 mg 2023 Active 2023 40999 59887 5 Once daily By Mouth False Docusate sodium 100 mg capsule [generic] 100mg By Mouth Twice daily as needed For constipation HOLD FOR LOOSE STOOLS 100mg 2023 Active 2023 96223 06426 1 Twice daily as needed By Mouth False Atorvastati n 40 mg tablet [generic] 40mg By Mouth Once daily For HDL 40mg 08/26 Inactiv e 2023 62274 48116 5 Once daily By Mouth False Tylenol 325 mg tablet 2 tabs By Mouth Every 4 hours as needed For Pain DO NOT EXCEED 3000 MG APAP/24 Hours 2 tabs 2023 Active 2023 08726 95201 0 Every 4 hours as needed By Mouth False Tylenol 325 mg tablet 2 tabs By Mouth Every 4 hours as needed For Fever >100 DO NOT EXCEED 3000 MG APAP/24 Hours 2 tabs 2023 Active 2023 96139 25388 0 Every 4 hours as needed By Mouth False Dulcolax (bisacodyl) 10 mg rectal suppository One Suppository per rectum PRN if Milk of Magnisia ineffective. Give on day 5 of no BM 1 sup 2023 Active 2023 83718 04164 1 Daily as needed Rectal False Fleet Enema 19 gram-7 gram/118 mL Administer per rectum PRN one time if dulcolax suppository not effective. Give on day 6 of no BM 1 2023 Active 2023 28116 79305 6 Daily as needed Rectal False Dextrose 50 % in water (D50W) intravenous solution [generic] Dextrose 50% evonne 20-50 ml (slow push) Intravenous if Glucagon not effective after 15 minutes. CALL 911 for ED Evaluation. 50% evonne 2023 Active 2023 80548 50108 9 Intrav enous False Glucagon (HCl) Emergency Kit 1 mg solution for injection Administer Glucagon 1 mg Intramuscular if 15 minutes after GLucose Gel is administered Glucose remains less than 70 1 mg 2023 Active 2023 07651 25540 2 Intram uscula r False Glucose Gel 40 % oral gel [Dextrose] PRN If resident is unable to swallow (with or without symptoms) and Glucose results less than 70 give GLucose 40% Gel 1 tube orally - Recheck Glucose 15 minutes after administratio n. 1 tube 2023 Active 2023 73157 06094 8 By Mouth False Milk of Magnesia 400 mg/5 mL oral suspension [Magnesium hydroxide] PRN 30ml By Mouth Daily as needed for constipation one time daily if no BM, on day 4 of no BM (PRN refer to instructions) For Constipation 30 mL 2023 Active 2023 91194 37583 6 Daily as needed By Mouth False Atorvastati n 40 mg tablet [generic] 08/26 Inactiv e 2023 56403 94144 5 Atorvastati n 40 mg tablet [generic] 40mg By Mouth Once daily For HDL 40mg 2023 Active 2023 94470 41514 5 Once daily By Mouth False Insulin aspart (U-100) 100 unit/mL (3 mL) subcutaneou s pen [generic] 15 units Subcutaneous 1 time For dm 15 units 08/26 Inactiv e 2023 89511 29925 5 1 time Subcut aneous False Humalog KwikPen (U-100) Insulin 100 unit/mL subcutaneou s 15 units Subcutaneous 1 time For dm 15 units 08/27 Inactiv e 2023 79595 69614 9 1 time Subcut aneous False Linezolid 600 mg tablet [generic] 600 mg By Mouth Every 12 hours For MRSA INFECTION L BKA 600 mg 09/06 Active 2023 70416 43703 1 Every 12 hours By Mouth False Cefpodoxime 200 mg tablet [generic] 400 mg By Mouth Twice daily For MRSA INFECTION L BKA 400 mg 08/31 Inactiv e 2023 16843 03174 0 Twice daily By Mouth False Senna 8.6 mg tablet 8.6 mg By Mouth Once daily For Constipation 8.6 mg 2023 Active 2023 62635 60123 1 Once daily By Mouth False Humalog [...] abnormalities . Per Carb 2023 Active 2023 49812 70845 9 4 times a day Subcut aneous False Alendronate 35 mg tablet [generic] 08/31 Inactiv e 2023 92972 44393 5 Alendronate 35 mg tablet [generic] 35mg By Mouth Every week For Osteoporosis 35mg 2023 Active 2023 03490 25146 5 Every week By Mouth False ProSource 10 gram-100 kcal/30 mL oral liquid 30 ml By Mouth Once daily For wound healing 30 ml 2023 Active 2023 69711 55574 2 Once daily By Mouth False Clotrimazol e 1 % topical cream [generic] 1 applicaiton Topical Twice daily For tinea, apply to groin rash after cleansing and throughouly drying. Can discontinue order 3 days after rash resolves. 1 applica stacy 10/04 Active 2023 30619 39365 0 Twice daily Topica l False Humalog KwikPen (U-100) Insulin 100 unit/mL subcutaneou s 08/31 Inactiv e 2023 92117 29793 9 MediHoney HCS 4 1/2in X 4 1/2in bandage Cleanse area with NSS, apply one medihoney hydrocolloid dressing, non adherent dressing, kerlix secure with paper tape daily. 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 08/25/2024 Active [...] weight Temperature SpO2 Blood Sugar Pulse Respirations 20643 8 67.00 mm[Hg] - Sitting 145.00 mm[Hg] - Sitting 98.50 Forehead Scan 96.00 % 81.00/ min 16.00/min 004 39155 2 67.00 mm[Hg] - Sitting 145.00 mm[Hg] - Sitting 98.50 Tympanic 81.00/ min 16.00/min 26220 004 07774 5 56.00 mm[Hg] - Sitting 142.00 mm[Hg] - Sitting 136.40 NI 100.20 Tympanic 96.00 % 92.00/ min 18.00/min 83806 004 87069 6 95602 004 11442 4 143.00 mg/dL 33340 0 97.80 Tympanic 005 62057 7 60.00 mm[Hg] - Sitting 140.00 mm[Hg] - Sitting 98.00 Tympanic 84.00/ min 18.00/min 47402 005 54452 0 63.00 mm[Hg] - Sitting 141.00 mm[Hg] - Sitting 98.20 Tympanic 92.00 % 63.00/ min 16.00/min 04215 005 92822 8 69.00 mm[Hg] - Sitting 106.00 mm[Hg] - Sitting 97.20 Tympanic 005 72942 7 69.00/ min 16.00/min 26540 005 41256 3 69.00 mm[Hg] - Sitting 106.00 mm[Hg] - Sitting 98.20 Tympanic 69.00/ min 16.00/min 82605 005 16144 1 367.00 mg/dL 23660 005 19517 2 97.20 Tympanic 71640 005 85481 4 97.20 Tympanic 37434 005 43344 0 69.00 mm[Hg] - Sitting 106.00 mm[Hg] - Sitting 69.00/ min 29013 005 50801 3 452.00 mg/dL 14459 005 90927 3 452.00 mg/dL 26739 005 00625 5 352.00 mg/dL 36499 005 72575 3 352.00 mg/dL 00242 005 24237 7 98.20 Tympanic 88281 005 3 101.00 mg/dL 27530 005 8 101.00 mg/dL 95496 006 68560 4 66.00 mm[Hg] - Sitting 107.00 mm[Hg] - Sitting 98.00 Tympanic 66.00/ min 18.00/min 57945 006 50734 0 62.00 mm[Hg] - Sitting 162.00 mm[Hg] - Sitting 98.20 Tympanic 96.00 % 60.00/ min 16.00/min 24519 006 55580 4 62.00 mm[Hg] - Sitting 162.00 mm[Hg] - Sitting 98.00 Tympanic 70.00/ min 18.00/min 16069 006 95282 8 62.00 mm[Hg] - Sitting 162.00 mm[Hg] - Sitting 98.20 Tympanic 70.00/ min 18.00/min 17925 006 87519 2 66.00 mm[Hg] - Sitting 132.00 mm[Hg] - Sitting 98.60 Tympanic 74.00/ min 16.00/min 76083 006 96354 5 159.00 mg/dL 27974 006 80170 1 159.00 mg/dL 94885 006 11575 8 98.00 Tympanic 51001 006 91784 2 62.00 mm[Hg] - Sitting 162.00 mm[Hg] - Sitting 70.00/ min 57959 006 97397 7 264.00 mg/dL 95362 006 89658 7 264.00 mg/dL 49738 006 79690 4 196.00 mg/dL 06924 006 30194 3 98.20 Tympanic 46822 006 85543 6 271.00 mg/dL 03081 007 79334 3 97.20 Tympanic 99780 007 17857 2 63.00 mm[Hg] - Sitting 132.00 mm[Hg] - Sitting 98.50 Tympanic 94.00 % 66.00/ min 16.00/min 74218 007 62400 5 188.00 mg/dL 37216 007 06546 2 188.00 mg/dL 70661 007 43525 2 188.00 mg/dL 54670 007 23743 7 97.20 Tympanic 22780 007 15926 6 97.20 Tympanic 75327 007 61076 5 67.00 mm[Hg] - Sitting 152.00 mm[Hg] - Sitting 68.00/ min 48985 007 50303 0 141.00 mg/dL 00740 007 37325 3 141.00 mg/dL 84262 007 75761 1 366.00 mg/dL 80785 007 59270 7 366.00 mg/dL 54557 007 97507 7 98.00 Tympanic 25968 007 84367 6 324.00 mg/dL 11471 007 28305 3 98.00 Tympanic 34003 007 32969 7 324.00 mg/dL 80730 008 94014 0 98.00 Tympanic 58908 008 02292 2 97.90 Tympanic 29890 008 02303 0 98.20 Tympanic 21729 008 14297 0 73.00 mm[Hg] - Sitting 156.00 mm[Hg] - Sitting 98.60 Tympanic 99.00 % 66.00/ min 20.00/min 67296 008 30273 5 137.00 mg/dL 09966 008 57915 7 137.00 mg/dL 30539 008 24309 2 97.90 Tympanic 18640 008 70601 1 137.00 mg/dL 67756 008 25191 8 97.90 Tympanic 47090 008 99801 5 67.00 mm[Hg] - Sitting 124.00 /min 65147 008 12796 6 212.00 mg/dL 04725 008 65406 6 212.00 mg/dL 22536 008 34786 9 317.00 mg/dL 62083 008 73766 4 317.00 mg/dL 67738 008 44528 8 252.00 mg/dL 82702 008 01866 0 98.70 Tympanic 44573 008 41326 7 252.00 mg/dL 27750 008 94720 3 98.70 Tympanic 03187 009 52583 9 98.70 Tympanic 58419 009 94499 3 98.20 Tympanic 83621 009 11204 5 98.40 Tympanic 30942 009 46570 5 57.00 mm[Hg] - Sitting 129.00 mm[Hg] - Sitting 98.30 Tympanic 97.00 % 65.00/ min 18.00/min 52496 009 34942 1 255.00 mg/dL 23668 009 91606 4 255.00 mg/dL 36599 009 33259 5 98.20 Tympanic 27860 009 83750 0 255.00 mg/dL 58234 009 86704 0 98.20 Tympanic 40531 009 85187 4 63.00 mm[Hg] - Lying Down 102.00 mm[Hg] - Lying Down 58.00/ min 78814 009 11264 0 167.00 mg/dL 05057 009 87713 1 167.00 mg/dL 67701 009 52553 2 164.00 mg/dL 31790 009 53704 1 164.00 mg/dL 62382 009 61997 5 208.00 mg/dL 40197 010 03688 3 98.40 Tympanic 05216 010 66114 5 98.40 Tympanic 95717 010 91405 7 66 NI 51963 010 26964 4 60.00 mm[Hg] - Sitting 143.00 mm[Hg] - Sitting 98.90 Tympanic 98.00 % 67.00/ min 18.00/min 00922 010 38286 2 214.00 mg/dL 93346 010 15843 0 214.00 mg/dL 89347 010 68098 7 214.00 mg/dL 42148 010 13215 6 64.00 mm[Hg] - Sitting 110.00 mm[Hg] - Sitting 72.00/ min 18372 010 94116 7 98.40 Tympanic 54139 010 65408 1 212.00 mg/dL 97330 010 14895 2 212.00 mg/dL 12830 010 82432 1 115.00 mg/dL 48472 010 09163 0 115.00 mg/dL 10753 010 03224 4 98.50 Tympanic 75913 010 34970 4 150.00 mg/dL 09588 010 84957 0 150.00 mg/dL 40447 011 47208 9 98.60 Tympanic 85689 011 87039 1 67.00 mm[Hg] - Sitting 144.00 mm[Hg] - Sitting 98.20 Tympanic 98.00 % 61.00/ min 18.00/min 70117 011 85969 7 290.00 mg/dL 60400 011 28725 2 290.00 mg/dL 92342 011 66607 2 290.00 mg/dL 68012 011 96945 7 54.00 mm[Hg] - Sitting 136.00 mm[Hg] - Sitting 101.00 /min 76129 011 41316 7 98.60 Tympanic 52292 011 99395 5 240.00 mg/dL 96249 011 32556 1 240.00 mg/dL 69953 011 73063 1 156.00 mg/dL 36698 011 40805 9 156.00 mg/dL 89372 011 11866 0 97.80 Tympanic 73549 011 52747 8 343.00 mg/dL 99221 012 07465 9 97.90 Tympanic 74422 012 86078 2 466.00 mg/dL 18978 012 83999 1 466.00 mg/dL 16335 012 19059 3 466.00 mg/dL 43530 012 54569 8 97.90 Tympanic 30814 012 81477 8 56.00 mm[Hg] - Sitting 96.00 mm[Hg] - Sitting 61.00/ min 74871 012 74653 7 350.00 mg/dL 46753 012 45408 5 350.00 mg/dL 84223 012 61392 6 111.00 mg/dL 38749 012 39403 0 111.00 mg/dL 70455 012 01824 5 98.40 Tympanic 26556 012 41370 6 114.00 mg/dL 64004 013 09904 4 74.00 mm[Hg] - Sitting 112.00 mm[Hg] - Sitting 98.40 Tympanic 70.00/ min 18.00/min 07009 013 82930 8 244.00 mg/dL 08794 013 57553 7 244.00 mg/dL 62565 013 53605 1 244.00 mg/dL 71239 013 47217 1 98.20 Tympanic 20322 013 89309 7 72.00 mm[Hg] - Sitting 119.00 mm[Hg] - Sitting 76.00/ min 85903 013 44646 7 253.00 mg/dL 06248 013 31431 4 253.00 mg/dL 64700 013 77248 9 156.00 mg/dL 30083 013 13887 5 156.00 mg/dL 27346 013 59197 4 97.90 Tympanic 46468 013 28025 5 189.00 mg/dL 70190 014 15967 9 98.10 Tympanic 76781 014 82421 3 169.00 mg/dL 014 69105 3 98.10 Tympanic 014 15726 3 75.00 mm[Hg] - Sitting 121.00 mm[Hg] - Sitting 71.00/ min 014 58367 9 221.00 mg/dL Immunizations Vaccine Date Status COVID-19 09/20/2023 Completed Other 10/08/2023 Completed Shingles 05/27/2011 Completed Tetanus 04/13/2022 Completed TDaP 04/13/2022 Completed Shingles 2 10/05/2018 Completed
--- OUTSIDE RECORDS SUMMARY | 2024-10-03 11:14 | External Medical Summary | Continuity Of Care Document ---
Author Name Unknown Address [address] [address] Organization [facility] () Care Team Providers Care Ticket Printer Name Role Phone DO Machado Amy Primary Care Provider [phone] Allergies Allergy Reaction Start Date End Date [...] 3 0.1 mL 08/29 Inactiv e 2023 74179 42158 0 1 time Intrad ermal False Tubersol 5 tub. unit/0.1 mL intradermal injection solution [Tuberculin PPD] 0.1mL Intradermal 1 time For PPD 2nd Step Give 2nd Step PPD Day 1 and Read results Day 3 (schedule 7 days after 1st READ) 0.1mL 09/08 Active 2023 92914 32118 0 1 time Intrad ermal False Humalog [...] order For Diabetes 08/25 Inactiv e 2023 73501 62861 9 4 times a day Subcut aneous False Aspirin 325 mg tablet [generic] 325 By Mouth Twice daily For Anticoagulati on 325 09/25 Active 2023 24851 28500 1 Twice daily By Mouth False Ferrous sulfate 325 mg (65 mg iron) tablet [generic] 325 By Mouth Once daily For anemia 325 2023 Active 2023 35382 90183 5 Once daily By Mouth False Linezolid 600 mg tablet [generic] 600 mg By Mouth Every 12 hours For MRSA INFECTION L BKA 600 mg 08/25 Inactiv e 2023 47778 77115 1 Every 12 hours By Mouth False Cefpodoxime 200 mg tablet [generic] 400 mg By Mouth Twice daily For MRSA INFECTION L BKA 400 mg 08/25 Inactiv e 2023 15282 34844 0 Twice daily By Mouth False Coenzyme Q10 100 mg tablet [generic] 100 mg By Mouth Once daily For SUPP 100 mg 2023 Active 2023 60811 40335 0 Once daily By Mouth False Levothyroxi ne 50 mcg tablet [generic] 50mcg By Mouth Once daily For hypothyroidis m 50mcg 2023 Active 2023 28864 95503 0 Once daily By Mouth False One A Day Men Complete 240 mcg-25 mcg-300 mcg tablet 1 tab By Mouth Once daily For supplement 1 tab 2023 Active 2023 36132 04793 1 Once daily By Mouth False Cholecalcif adalberto (vitamin D3) 50 mcg (2,000 unit) tablet [generic] 1 TAB By Mouth Once daily For SUPP 1 TAB 2023 Active 2023 25031 11998 1 Once daily By Mouth False Cetirizine 10 mg tablet [generic] 1 TAB By Mouth At bedtime For Allergies 1 TAB 2023 Active 2023 70672 71986 0 At bedtime By Mouth False Timolol maleate 0.25 % eye drops [generic] 1 drop Both Eyes Twice daily For glaucoma 1 drop 2023 0000 /0000 Active 2023 65619 74731 5 Twice daily Both Eyes False Alendronate 35 mg tablet [generic] 35mg By Mouth Every week For SIADH 35mg 08/31 Inactiv e 2023 78845 13008 5 Every week By Mouth False Lantus Solostar U-100 Insulin 100 unit/mL (3 mL) subcutaneou s pen 18 units Subcutaneous Every morning For DIABETES 18 units 08/25 Inactiv e 2023 90675 86222 0 Every morning Subcut aneous False Lantus Solostar U-100 Insulin 100 unit/mL (3 mL) subcutaneou s pen 18 units Subcutaneous Every morning For DIABETES 18 units 2023 Active 2023 88315 49977 0 Every morning Subcut aneous False Linezolid 600 mg tablet [generic] 600 mg By Mouth Every 12 hours For MRSA INFECTION L BKA 600 mg 08/28 Inactiv e 2023 93748 50094 1 Every 12 hours By Mouth False [...] order For Diabetes 08/31 Inactiv e 2023 14950 12730 9 4 times a day Subcut aneous False Cefpodoxime 200 mg tablet [generic] 400 mg By Mouth Twice daily For MRSA INFECTION L BKA 400 mg 08/28 Inactiv e 2023 75819 40178 0 Twice daily By Mouth False Brimonidine 0.1 % eye drops [generic] 1 drop Both Eyes Twice daily For glaucoma 1 drop 2023 Active 2023 85690 36292 0 Twice daily Both Eyes False Metoprolol succinate ER 50 mg tablet,exte nded release 24 hr [generic] 50 mg By Mouth Once daily HOLD FOR SBP <100, or pulse <60 For HTN 50 mg 2023 Active 2023 12076 21580 1 Once daily By Mouth False Amlodipine 2.5 mg tablet [generic] 2.5 mg By Mouth Once daily For HTN 2.5 mg 2023 Active 2023 51204 85514 5 Once daily By Mouth False Docusate sodium 100 mg capsule [generic] 100mg By Mouth Twice daily as needed For constipation HOLD FOR LOOSE STOOLS 100mg 2023 Active 2023 41493 79192 1 Twice daily as needed By Mouth False Atorvastati n 40 mg tablet [generic] 40mg By Mouth Once daily For HDL 40mg 08/26 Inactiv e 2023 59394 12043 5 Once daily By Mouth False Tylenol 325 mg tablet 2 tabs By Mouth Every 4 hours as needed For Pain DO NOT EXCEED 3000 MG APAP/24 Hours 2 tabs 2023 Active 2023 28240 39398 0 Every 4 hours as needed By Mouth False Tylenol 325 mg tablet 2 tabs By Mouth Every 4 hours as needed For Fever >100 DO NOT EXCEED 3000 MG APAP/24 Hours 2 tabs 2023 Active 2023 42688 49881 0 Every 4 hours as needed By Mouth False Dulcolax (bisacodyl) 10 mg rectal suppository One Suppository per rectum PRN if Milk of Magnisia ineffective. Give on day 5 of no BM 1 sup 2023 Active 2023 64819 57123 1 Daily as needed Rectal False Fleet Enema 19 gram-7 gram/118 mL Administer per rectum PRN one time if dulcolax suppository not effective. Give on day 6 of no BM 1 2023 Active 2023 46320 36622 6 Daily as needed Rectal False Dextrose 50 % in water (D50W) intravenous solution [generic] Dextrose 50% evonne 20-50 ml (slow push) Intravenous if Glucagon not effective after 15 minutes. CALL 911 for ED Evaluation. 50% evonne 2023 Active 2023 52846 17605 9 Intrav enous False Glucagon (HCl) Emergency Kit 1 mg solution for injection Administer Glucagon 1 mg Intramuscular if 15 minutes after GLucose Gel is administered Glucose remains less than 70 1 mg 2023 Active 2023 87973 99610 2 Intram uscula r False Glucose Gel 40 % oral gel [Dextrose] PRN If resident is unable to swallow (with or without symptoms) and Glucose results less than 70 give GLucose 40% Gel 1 tube orally - Recheck Glucose 15 minutes after administratio n. 1 tube 2023 Active 2023 73399 12240 8 By Mouth False Milk of Magnesia 400 mg/5 mL oral suspension [Magnesium hydroxide] PRN 30ml By Mouth Daily as needed for constipation one time daily if no BM, on day 4 of no BM (PRN refer to instructions) For Constipation 30 mL 2023 Active 2023 88267 77081 6 Daily as needed By Mouth False Atorvastati n 40 mg tablet [generic] 08/26 Inactiv e 2023 28615 60398 5 Atorvastati n 40 mg tablet [generic] 40mg By Mouth Once daily For HDL 40mg 2023 Active 2023 63684 40956 5 Once daily By Mouth False Insulin aspart (U-100) 100 unit/mL (3 mL) subcutaneou s pen [generic] 15 units Subcutaneous 1 time For dm 15 units 08/26 Inactiv e 2023 83309 50107 5 1 time Subcut aneous False Humalog KwikPen (U-100) Insulin 100 unit/mL subcutaneou s 15 units Subcutaneous 1 time For dm 15 units 08/27 Inactiv e 2023 76628 74485 9 1 time Subcut aneous False Linezolid 600 mg tablet [generic] 600 mg By Mouth Every 12 hours For MRSA INFECTION L BKA 600 mg 09/06 Active 2023 89382 85952 1 Every 12 hours By Mouth False Cefpodoxime 200 mg tablet [generic] 400 mg By Mouth Twice daily For MRSA INFECTION L BKA 400 mg 08/31 Inactiv e 2023 58993 00101 0 Twice daily By Mouth False Senna 8.6 mg tablet 8.6 mg By Mouth Once daily For Constipation 8.6 mg 2023 Active 2023 97551 18796 1 Once daily By Mouth False Humalog [...] abnormalities . Per Carb 2023 Active 2023 06892 64796 9 4 times a day Subcut aneous False Alendronate 35 mg tablet [generic] 08/31 Inactiv e 2023 29014 45287 5 Alendronate 35 mg tablet [generic] 35mg By Mouth Every week For Osteoporosis 35mg 2023 Active 2023 75886 13384 5 Every week By Mouth False ProSource 10 gram-100 kcal/30 mL oral liquid 30 ml By Mouth Once daily For wound healing 30 ml 2023 Active 2023 58860 38980 2 Once daily By Mouth False Clotrimazol e 1 % topical cream [generic] 1 applicaiton Topical Twice daily For tinea, apply to groin rash after cleansing and throughouly drying. Can discontinue order 3 days after rash resolves. 1 applica stacy 09/19 Active 2023 82453 57983 0 Twice daily Topica l False Humalog KwikPen (U-100) Insulin 100 unit/mL subcutaneou s 08/31 Inactiv e 2023 71897 77856 9 MediHoney HCS 4 1/2in X 4 1/2in bandage Cleanse area with NSS, apply one medihoney hydrocolloid dressing, non adherent dressing, kerlix secure with paper tape daily. For wound stage III 1 2023 Active 2023 21360 06359 1 Once daily Topica l False Problems Code Description Start Date End Date Status D64.9 Anemia, unspecified 08/25/2024 Activ e I25.10 Atherosclerotic hear t disease of [place] coronary artery without angina pectoris 08/25/2024 [...] weight Temperature SpO2 Blood Sugar Pulse Respirations 33023 8 67.00 mm[Hg] - Sitting 145.00 mm[Hg] - Sitting 98.50 Forehead Scan 96.00 % 81.00/ min 16.00/min 004 20352 2 67.00 mm[Hg] - Sitting 145.00 mm[Hg] - Sitting 98.50 Tympanic 81.00/ min 16.00/min 19509 004 41708 5 56.00 mm[Hg] - Sitting 142.00 mm[Hg] - Sitting 136.40 NI 100.20 Tympanic 96.00 % 92.00/ min 18.00/min 81803 004 64351 6 93534 004 22782 4 143.00 mg/dL 24128 0 97.80 Tympanic 005 21274 7 60.00 mm[Hg] - Sitting 140.00 mm[Hg] - Sitting 98.00 Tympanic 84.00/ min 18.00/min 62493 005 33214 0 63.00 mm[Hg] - Sitting 141.00 mm[Hg] - Sitting 98.20 Tympanic 92.00 % 63.00/ min 16.00/min 60147 005 98902 8 69.00 mm[Hg] - Sitting 106.00 mm[Hg] - Sitting 97.20 Tympanic 005 00866 7 69.00/ min 16.00/min 18408 005 20636 3 69.00 mm[Hg] - Sitting 106.00 mm[Hg] - Sitting 98.20 Tympanic 69.00/ min 16.00/min 15582 005 50493 1 367.00 mg/dL 23259 005 86011 2 97.20 Tympanic 46809 005 84700 4 97.20 Tympanic 21508 005 75834 0 69.00 mm[Hg] - Sitting 106.00 mm[Hg] - Sitting 69.00/ min 87843 005 74748 3 452.00 mg/dL 54761 005 60444 3 452.00 mg/dL 85403 005 14761 5 352.00 mg/dL 12409 005 62495 3 352.00 mg/dL 32989 005 83762 7 98.20 Tympanic 26052 005 3 101.00 mg/dL 35856 005 8 101.00 mg/dL 78787 006 35007 4 66.00 mm[Hg] - Sitting 107.00 mm[Hg] - Sitting 98.00 Tympanic 66.00/ min 18.00/min 68825 006 18993 0 62.00 mm[Hg] - Sitting 162.00 mm[Hg] - Sitting 98.20 Tympanic 96.00 % 60.00/ min 16.00/min 35246 006 50173 4 62.00 mm[Hg] - Sitting 162.00 mm[Hg] - Sitting 98.00 Tympanic 70.00/ min 18.00/min 13228 006 81939 8 62.00 mm[Hg] - Sitting 162.00 mm[Hg] - Sitting 98.20 Tympanic 70.00/ min 18.00/min 59459 006 10718 2 66.00 mm[Hg] - Sitting 132.00 mm[Hg] - Sitting 98.60 Tympanic 74.00/ min 16.00/min 88522 006 70445 5 159.00 mg/dL 19312 006 01700 1 159.00 mg/dL 18209 006 17977 8 98.00 Tympanic 51780 006 80061 2 62.00 mm[Hg] - Sitting 162.00 mm[Hg] - Sitting 70.00/ min 18311 006 33501 7 264.00 mg/dL 96277 006 68808 7 264.00 mg/dL 97619 006 61101 4 196.00 mg/dL 43641 006 31907 3 98.20 Tympanic 41198 006 72725 6 271.00 mg/dL 78698 007 50504 3 97.20 Tympanic 73069 007 27428 2 63.00 mm[Hg] - Sitting 132.00 mm[Hg] - Sitting 98.50 Tympanic 94.00 % 66.00/ min 16.00/min 07816 007 24781 5 188.00 mg/dL 46807 007 86579 2 188.00 mg/dL 58083 007 94872 2 188.00 mg/dL 48582 007 91870 7 97.20 Tympanic 68315 007 03422 6 97.20 Tympanic 15956 007 26814 5 67.00 mm[Hg] - Sitting 152.00 mm[Hg] - Sitting 68.00/ min 37762 007 98830 0 141.00 mg/dL 78785 007 29793 3 141.00 mg/dL 82109 007 97992 1 366.00 mg/dL 41803 007 37122 7 366.00 mg/dL 23469 007 22295 7 98.00 Tympanic 37333 007 79881 6 324.00 mg/dL 96624 007 03809 3 98.00 Tympanic 20449 007 57236 7 324.00 mg/dL 32360 008 80397 0 98.00 Tympanic 18428 008 55482 2 97.90 Tympanic 18413 008 44593 0 98.20 Tympanic 51702 008 27027 0 73.00 mm[Hg] - Sitting 156.00 mm[Hg] - Sitting 98.60 Tympanic 99.00 % 66.00/ min 20.00/min 22358 008 34987 5 137.00 mg/dL 97495 008 40440 7 137.00 mg/dL 45998 008 02966 2 97.90 Tympanic 77876 008 46565 1 137.00 mg/dL 63735 008 95742 8 97.90 Tympanic 61448 008 75124 5 67.00 mm[Hg] - Sitting 124.00 /min 32563 008 94761 6 212.00 mg/dL 42433 008 30514 6 212.00 mg/dL 52157 008 92836 9 317.00 mg/dL 90788 008 28478 4 317.00 mg/dL 99541 008 04242 8 252.00 mg/dL 54458 008 53033 0 98.70 Tympanic 32530 008 05166 7 252.00 mg/dL 59876 008 96806 3 98.70 Tympanic 99691 009 65595 9 98.70 Tympanic 30175 009 17382 3 98.20 Tympanic 26308 009 94582 5 98.40 Tympanic 15639 009 57177 5 57.00 mm[Hg] - Sitting 129.00 mm[Hg] - Sitting 98.30 Tympanic 97.00 % 65.00/ min 18.00/min 91225 009 34282 1 255.00 mg/dL 91648 009 80192 4 255.00 mg/dL 94526 009 93440 5 98.20 Tympanic 20310 009 13119 0 255.00 mg/dL 30498 009 89964 0 98.20 Tympanic 44624 009 56397 4 63.00 mm[Hg] - Lying Down 102.00 mm[Hg] - Lying Down 58.00/ min 13819 009 58607 0 167.00 mg/dL 05294 009 46399 1 167.00 mg/dL 52385 009 76449 2 164.00 mg/dL 27592 009 64843 1 164.00 mg/dL 77463 009 72941 5 208.00 mg/dL 95663 010 14725 3 98.40 Tympanic 12252 010 94396 5 98.40 Tympanic 04709 010 98878 7 66 NI 92491 010 49459 4 60.00 mm[Hg] - Sitting 143.00 mm[Hg] - Sitting 98.90 Tympanic 98.00 % 67.00/ min 18.00/min 90423 010 36983 2 214.00 mg/dL 17949 010 89416 0 214.00 mg/dL 84213 010 41723 7 214.00 mg/dL 70581 010 81287 6 64.00 mm[Hg] - Sitting 110.00 mm[Hg] - Sitting 72.00/ min 09239 010 84214 7 98.40 Tympanic 76586 010 80225 1 212.00 mg/dL 90280 010 55121 2 212.00 mg/dL 73401 010 35964 1 115.00 mg/dL 20992 010 06035 0 115.00 mg/dL 07741 010 00323 4 98.50 Tympanic 48518 010 30849 4 150.00 mg/dL 44794 010 44104 0 150.00 mg/dL 20754 011 48535 9 98.60 Tympanic 41487 011 63182 1 67.00 mm[Hg] - Sitting 144.00 mm[Hg] - Sitting 98.20 Tympanic 98.00 % 61.00/ min 18.00/min 07807 011 85417 7 290.00 mg/dL 84431 011 95681 2 290.00 mg/dL 25961 011 38411 2 290.00 mg/dL 17035 011 95102 7 54.00 mm[Hg] - Sitting 136.00 mm[Hg] - Sitting 101.00 /min 50255 011 78179 7 98.60 Tympanic 83379 011 47073 5 240.00 mg/dL 20482 011 53959 1 240.00 mg/dL 89004 011 35715 1 156.00 mg/dL 70908 011 89901 9 156.00 mg/dL 41597 011 98046 0 97.80 Tympanic 38028 011 81983 8 343.00 mg/dL 20587 012 97576 9 97.90 Tympanic 11937 012 62999 2 466.00 mg/dL 85734 012 75657 1 466.00 mg/dL 14692 012 41294 3 466.00 mg/dL 11876 012 45220 8 97.90 Tympanic 79089 012 67351 8 56.00 mm[Hg] - Sitting 96.00 mm[Hg] - Sitting 61.00/ min 02951 012 46699 7 350.00 mg/dL 51481 012 64008 5 350.00 mg/dL 74046 012 07167 6 111.00 mg/dL 19087 012 46207 0 111.00 mg/dL 32563 012 16815 5 98.40 Tympanic 40984 012 46092 6 114.00 mg/dL 98596 013 23995 4 74.00 mm[Hg] - Sitting 112.00 mm[Hg] - Sitting 98.40 Tympanic 70.00/ min 18.00/min 17371 013 83122 8 244.00 mg/dL 10675 013 24709 7 244.00 mg/dL 56944 013 53506 1 244.00 mg/dL 21774 013 87365 1 98.20 Tympanic 18205 013 25509 7 72.00 mm[Hg] - Sitting 119.00 mm[Hg] - Sitting 76.00/ min 37521 013 47718 7 253.00 mg/dL 94175 013 88979 4 253.00 mg/dL 93834 013 43473 9 156.00 mg/dL 65005 013 80548 5 156.00 mg/dL 06027 013 24184 4 97.90 Tympanic 81357 013 48647 5 189.00 mg/dL 92252 014 55128 9 98.10 Tympanic 64813 014 96572 0 61.00 mm[Hg] - Sitting 139.00 mm[Hg] - Sitting 98.20 Forehead Scan 99.00 % 66.00/ min 18.00/min 32072 014 90776 3 169.00 mg/dL 65143 014 38472 3 98.10 Tympanic 55010 014 05988 3 75.00 mm[Hg] - Sitting 121.00 mm[Hg] - Sitting 71.00/ min 39867 014 17468 9 221.00 mg/dL 01623 014 61368 9 62.00 mg/dL 72990 014 83981 5 62.00 mg/dL 69474 014 08197 8 156.00 mg/dL 37183 014 79005 6 98.10 Tympanic 02238 014 09209 7 156.00 mg/dL 85865 015 40718 4 44443 015 94169 9 120.00 mg/dL 31945 015 54965 7 98.00 Tympanic 18414 015 17859 2 82.00 mm[Hg] - Sitting 119.00 /min 81679 015 99835 9 110.00 mg/dL Immunizations Vaccine Date Status COVID-19 09/20/2023 Completed Other 10/08/2023 Completed Shingles 05/27/2011 Completed Tetanus 04/13/2022 Completed TDaP 04/13/2022 Completed Shingles 2 10/05/2018 Completed
--- OUTSIDE RECORDS SUMMARY | 2024-10-03 11:14 | External Medical Summary | Continuity Of Care Document ---
Author Name Unknown Address [address] [address] Organization [facility] () Care Team Providers Care Job Tracer Name Role Phone DO Machado Amy Primary Care Provider [phone] Allergies Allergy Reaction Start Date End Date [...] 3 0.1 mL 08/29 Inactiv e 2023 56449 13051 0 1 time Intrad ermal False Tubersol 5 tub. unit/0.1 mL intradermal injection solution [Tuberculin PPD] 0.1mL Intradermal 1 time For PPD 2nd Step Give 2nd Step PPD Day 1 and Read results Day 3 (schedule 7 days after 1st READ) 0.1mL 09/08 Active 2023 34527 03436 0 1 time Intrad ermal False Humalog [...] order For Diabetes 08/25 Inactiv e 2023 04363 41364 9 4 times a day Subcut aneous False Aspirin 325 mg tablet [generic] 325 By Mouth Twice daily For Anticoagulati on 325 09/25 Active 2023 19758 26494 1 Twice daily By Mouth False Ferrous sulfate 325 mg (65 mg iron) tablet [generic] 325 By Mouth Once daily For anemia 325 2023 Active 2023 40210 56052 5 Once daily By Mouth False Linezolid 600 mg tablet [generic] 600 mg By Mouth Every 12 hours For MRSA INFECTION L BKA 600 mg 08/25 Inactiv e 2023 31525 16916 1 Every 12 hours By Mouth False Cefpodoxime 200 mg tablet [generic] 400 mg By Mouth Twice daily For MRSA INFECTION L BKA 400 mg 08/25 Inactiv e 2023 61697 61853 0 Twice daily By Mouth False Coenzyme Q10 100 mg tablet [generic] 100 mg By Mouth Once daily For SUPP 100 mg 2023 Active 2023 46730 98652 0 Once daily By Mouth False Levothyroxi ne 50 mcg tablet [generic] 50mcg By Mouth Once daily For hypothyroidis m 50mcg 2023 Active 2023 54047 27765 0 Once daily By Mouth False One A Day Men Complete 240 mcg-25 mcg-300 mcg tablet 1 tab By Mouth Once daily For supplement 1 tab 2023 Active 2023 47626 37122 1 Once daily By Mouth False Cholecalcif adalberto (vitamin D3) 50 mcg (2,000 unit) tablet [generic] 1 TAB By Mouth Once daily For SUPP 1 TAB 2023 Active 2023 57061 32849 1 Once daily By Mouth False Cetirizine 10 mg tablet [generic] 1 TAB By Mouth At bedtime For Allergies 1 TAB 2023 Active 2023 30011 37201 0 At bedtime By Mouth False Timolol maleate 0.25 % eye drops [generic] 1 drop Both Eyes Twice daily For glaucoma 1 drop 2023 0000 /0000 Active 2023 68149 84151 5 Twice daily Both Eyes False Alendronate 35 mg tablet [generic] 35mg By Mouth Every week For SIADH 35mg 08/31 Inactiv e 2023 04450 98730 5 Every week By Mouth False Lantus Solostar U-100 Insulin 100 unit/mL (3 mL) subcutaneou s pen 18 units Subcutaneous Every morning For DIABETES 18 units 08/25 Inactiv e 2023 08071 13698 0 Every morning Subcut aneous False Lantus Solostar U-100 Insulin 100 unit/mL (3 mL) subcutaneou s pen 18 units Subcutaneous Every morning For DIABETES 18 units 2023 Active 2023 00092 60701 0 Every morning Subcut aneous False Linezolid 600 mg tablet [generic] 600 mg By Mouth Every 12 hours For MRSA INFECTION L BKA 600 mg 08/28 Inactiv e 2023 68362 83874 1 Every 12 hours By Mouth False [...] order For Diabetes 08/31 Inactiv e 2023 83458 61571 9 4 times a day Subcut aneous False Cefpodoxime 200 mg tablet [generic] 400 mg By Mouth Twice daily For MRSA INFECTION L BKA 400 mg 08/28 Inactiv e 2023 62964 38643 0 Twice daily By Mouth False Brimonidine 0.1 % eye drops [generic] 1 drop Both Eyes Twice daily For glaucoma 1 drop 2023 Active 2023 65401 96075 0 Twice daily Both Eyes False Metoprolol succinate ER 50 mg tablet,exte nded release 24 hr [generic] 50 mg By Mouth Once daily HOLD FOR SBP <100, or pulse <60 For HTN 50 mg 2023 Active 2023 54839 24739 1 Once daily By Mouth False Amlodipine 2.5 mg tablet [generic] 2.5 mg By Mouth Once daily For HTN 2.5 mg 2023 Active 2023 00363 15443 5 Once daily By Mouth False Docusate sodium 100 mg capsule [generic] 100mg By Mouth Twice daily as needed For constipation HOLD FOR LOOSE STOOLS 100mg 2023 Active 2023 14504 28765 1 Twice daily as needed By Mouth False Atorvastati n 40 mg tablet [generic] 40mg By Mouth Once daily For HDL 40mg 08/26 Inactiv e 2023 06963 48845 5 Once daily By Mouth False Tylenol 325 mg tablet 2 tabs By Mouth Every 4 hours as needed For Pain DO NOT EXCEED 3000 MG APAP/24 Hours 2 tabs 2023 Active 2023 68993 55889 0 Every 4 hours as needed By Mouth False Tylenol 325 mg tablet 2 tabs By Mouth Every 4 hours as needed For Fever >100 DO NOT EXCEED 3000 MG APAP/24 Hours 2 tabs 2023 Active 2023 22669 21347 0 Every 4 hours as needed By Mouth False Dulcolax (bisacodyl) 10 mg rectal suppository One Suppository per rectum PRN if Milk of Magnisia ineffective. Give on day 5 of no BM 1 sup 2023 Active 2023 13961 50733 1 Daily as needed Rectal False Fleet Enema 19 gram-7 gram/118 mL Administer per rectum PRN one time if dulcolax suppository not effective. Give on day 6 of no BM 1 2023 Active 2023 83239 38146 6 Daily as needed Rectal False Dextrose 50 % in water (D50W) intravenous solution [generic] Dextrose 50% evonne 20-50 ml (slow push) Intravenous if Glucagon not effective after 15 minutes. CALL 911 for ED Evaluation. 50% evonne 2023 Active 2023 95025 70514 9 Intrav enous False Glucagon (HCl) Emergency Kit 1 mg solution for injection Administer Glucagon 1 mg Intramuscular if 15 minutes after GLucose Gel is administered Glucose remains less than 70 1 mg 2023 Active 2023 18681 12292 2 Intram uscula r False Glucose Gel 40 % oral gel [Dextrose] PRN If resident is unable to swallow (with or without symptoms) and Glucose results less than 70 give GLucose 40% Gel 1 tube orally - Recheck Glucose 15 minutes after administratio n. 1 tube 2023 Active 2023 55489 12420 8 By Mouth False Milk of Magnesia 400 mg/5 mL oral suspension [Magnesium hydroxide] PRN 30ml By Mouth Daily as needed for constipation one time daily if no BM, on day 4 of no BM (PRN refer to instructions) For Constipation 30 mL 2023 Active 2023 11332 34945 6 Daily as needed By Mouth False Atorvastati n 40 mg tablet [generic] 08/26 Inactiv e 2023 46830 33145 5 Atorvastati n 40 mg tablet [generic] 40mg By Mouth Once daily For HDL 40mg 2023 Active 2023 34166 53998 5 Once daily By Mouth False Insulin aspart (U-100) 100 unit/mL (3 mL) subcutaneou s pen [generic] 15 units Subcutaneous 1 time For dm 15 units 08/26 Inactiv e 2023 66037 42575 5 1 time Subcut aneous False Humalog KwikPen (U-100) Insulin 100 unit/mL subcutaneou s 15 units Subcutaneous 1 time For dm 15 units 08/27 Inactiv e 2023 11818 54565 9 1 time Subcut aneous False Linezolid 600 mg tablet [generic] 600 mg By Mouth Every 12 hours For MRSA INFECTION L BKA 600 mg 09/06 Active 2023 69609 12641 1 Every 12 hours By Mouth False Cefpodoxime 200 mg tablet [generic] 400 mg By Mouth Twice daily For MRSA INFECTION L BKA 400 mg 08/31 Inactiv e 2023 50473 03675 0 Twice daily By Mouth False Senna 8.6 mg tablet 8.6 mg By Mouth Once daily For Constipation 8.6 mg 2023 Active 2023 98710 43899 1 Once daily By Mouth False Humalog [...] abnormalities . Per Carb 2023 Active 2023 29666 84594 9 4 times a day Subcut aneous False Alendronate 35 mg tablet [generic] 08/31 Inactiv e 2023 54814 26661 5 Alendronate 35 mg tablet [generic] 35mg By Mouth Every week For Osteoporosis 35mg 2023 Active 2023 54691 80674 5 Every week By Mouth False ProSource 10 gram-100 kcal/30 mL oral liquid 30 ml By Mouth Once daily For wound healing 30 ml 2023 Active 2023 99665 84378 2 Once daily By Mouth False Clotrimazol e 1 % topical cream [generic] 1 applicaiton Topical Twice daily For tinea, apply to groin rash after cleansing and throughouly drying. Can discontinue order 3 days after rash resolves. 1 applica stacy 10/04 Active 2023 93977 02033 0 Twice daily Topica l False Humalog KwikPen (U-100) Insulin 100 unit/mL subcutaneou s 08/31 Inactiv e 2023 18047 73932 9 MediHoney HCS 4 1/2in X 4 1/2in bandage Cleanse area with NSS, apply one medihoney hydrocolloid dressing, non adherent dressing, kerlix secure with paper tape daily. For wound stage III 1 2023 Active 2023 96059 91603 1 Once daily Topica l False Problems Code Description Start Date End Date Status D64.9 Anemia, unspecified 08/25/2024 Activ e I25.10 Atherosclerotic hear t disease of [place] coronary artery without angina pectoris 08/25/2024 [...] unspecified 08/25/2024 Active E11.319 Type 2 diabetes [place] itus with unspecified diabetic retinopathy without macular edema 08/25/2024 Active B95.62 Methicillin resistan t Staphylococcus aureus infection as the cause of diseases classified elsewhere 08/25/2024 Active VITAL SIGNS Date Time Diastolic blood pressure Systolic blood pressure Body height Body weight Temperature SpO2 Blood Sugar Pulse Respirations 22200 8 67.00 mm[Hg] - Sitting 145.00 mm[Hg] - Sitting 98.50 Forehead Scan 96.00 % 81.00/ min 16.00/min 004 22158 2 67.00 mm[Hg] - Sitting 145.00 mm[Hg] - Sitting 98.50 Tympanic 81.00/ min 16.00/min 28785 004 73815 5 56.00 mm[Hg] - Sitting 142.00 mm[Hg] - Sitting 136.40 NI 100.20 Tympanic 96.00 % 92.00/ min 18.00/min 15996 004 39365 6 11881 004 62787 4 143.00 mg/dL 48188 0 97.80 Tympanic 005 30695 7 60.00 mm[Hg] - Sitting 140.00 mm[Hg] - Sitting 98.00 Tympanic 84.00/ min 18.00/min 80942 005 72497 0 63.00 mm[Hg] - Sitting 141.00 mm[Hg] - Sitting 98.20 Tympanic 92.00 % 63.00/ min 16.00/min 53147 005 73025 8 69.00 mm[Hg] - Sitting 106.00 mm[Hg] - Sitting 97.20 Tympanic 005 99213 7 69.00/ min 16.00/min 19692 005 28566 3 69.00 mm[Hg] - Sitting 106.00 mm[Hg] - Sitting 98.20 Tympanic 69.00/ min 16.00/min 35722 005 50707 1 367.00 mg/dL 67733 005 79921 2 97.20 Tympanic 10080 005 95240 4 97.20 Tympanic 16558 005 38885 0 69.00 mm[Hg] - Sitting 106.00 mm[Hg] - Sitting 69.00/ min 71318 005 08709 3 452.00 mg/dL 38064 005 99080 3 452.00 mg/dL 88964 005 95972 5 352.00 mg/dL 18608 005 68690 3 352.00 mg/dL 87124 005 80608 7 98.20 Tympanic 22210 005 3 101.00 mg/dL 54719 005 8 101.00 mg/dL 82347 006 95670 4 66.00 mm[Hg] - Sitting 107.00 mm[Hg] - Sitting 98.00 Tympanic 66.00/ min 18.00/min 36325 006 97911 0 62.00 mm[Hg] - Sitting 162.00 mm[Hg] - Sitting 98.20 Tympanic 96.00 % 60.00/ min 16.00/min 66176 006 31384 4 62.00 mm[Hg] - Sitting 162.00 mm[Hg] - Sitting 98.00 Tympanic 70.00/ min 18.00/min 38317 006 85753 8 62.00 mm[Hg] - Sitting 162.00 mm[Hg] - Sitting 98.20 Tympanic 70.00/ min 18.00/min 26336 006 58150 2 66.00 mm[Hg] - Sitting 132.00 mm[Hg] - Sitting 98.60 Tympanic 74.00/ min 16.00/min 25180 006 78814 5 159.00 mg/dL 14087 006 63210 1 159.00 mg/dL 53533 006 07582 8 98.00 Tympanic 01009 006 79860 2 62.00 mm[Hg] - Sitting 162.00 mm[Hg] - Sitting 70.00/ min 32022 006 76706 7 264.00 mg/dL 48970 006 12357 7 264.00 mg/dL 74066 006 11785 4 196.00 mg/dL 12153 006 87042 3 98.20 Tympanic 28401 006 84898 6 271.00 mg/dL 03059 007 62286 3 97.20 Tympanic 37557 007 59951 2 63.00 mm[Hg] - Sitting 132.00 mm[Hg] - Sitting 98.50 Tympanic 94.00 % 66.00/ min 16.00/min 31407 007 22111 5 188.00 mg/dL 37979 007 66941 2 188.00 mg/dL 29984 007 27797 2 188.00 mg/dL 04370 007 58365 7 97.20 Tympanic 63749 007 49193 6 97.20 Tympanic 65443 007 09939 5 67.00 mm[Hg] - Sitting 152.00 mm[Hg] - Sitting 68.00/ min 91631 007 39082 0 141.00 mg/dL 38910 007 13963 3 141.00 mg/dL 90693 007 39302 1 366.00 mg/dL 63333 007 59948 7 366.00 mg/dL 00809 007 02838 7 98.00 Tympanic 60237 007 64615 6 324.00 mg/dL 93925 007 33887 3 98.00 Tympanic 81616 007 90744 7 324.00 mg/dL 16106 008 37110 0 98.00 Tympanic 77089 008 76138 2 97.90 Tympanic 39175 008 33082 0 98.20 Tympanic 86972 008 82924 0 73.00 mm[Hg] - Sitting 156.00 mm[Hg] - Sitting 98.60 Tympanic 99.00 % 66.00/ min 20.00/min 46256 008 20129 5 137.00 mg/dL 69146 008 79675 7 137.00 mg/dL 54656 008 70859 2 97.90 Tympanic 27097 008 91683 1 137.00 mg/dL 72637 008 60359 8 97.90 Tympanic 73265 008 53306 5 67.00 mm[Hg] - Sitting 124.00 /min 58154 008 08033 6 212.00 mg/dL 57322 008 64999 6 212.00 mg/dL 89360 008 82541 9 317.00 mg/dL 08753 008 43303 4 317.00 mg/dL 10502 008 46927 8 252.00 mg/dL 49260 008 84221 0 98.70 Tympanic 10793 008 64934 7 252.00 mg/dL 96809 008 22881 3 98.70 Tympanic 63666 009 08545 9 98.70 Tympanic 82936 009 07749 3 98.20 Tympanic 77758 009 35716 5 98.40 Tympanic 61634 009 28061 5 57.00 mm[Hg] - Sitting 129.00 mm[Hg] - Sitting 98.30 Tympanic 97.00 % 65.00/ min 18.00/min 46359 009 78471 1 255.00 mg/dL 27887 009 53716 4 255.00 mg/dL 60122 009 05942 5 98.20 Tympanic 09835 009 08282 0 255.00 mg/dL 82533 009 72603 0 98.20 Tympanic 92194 009 87870 4 63.00 mm[Hg] - Lying Down 102.00 mm[Hg] - Lying Down 58.00/ min 24263 009 95257 0 167.00 mg/dL 43252 009 34928 1 167.00 mg/dL 59201 009 74407 2 164.00 mg/dL 84075 009 24366 1 164.00 mg/dL 36190 009 10279 5 208.00 mg/dL 50785 010 59226 3 98.40 Tympanic 07658 010 08351 5 98.40 Tympanic 01343 010 82719 7 66 [place] [address]283 010 13595 4 60.00 mm[Hg] - Sitting 143.00 mm[Hg] - Sitting 98.90 Tympanic 98.00 % 67.00/ min 18.00/min 50322 010 19782 2 214.00 mg/dL 94222 010 41752 0 214.00 mg/dL 86830 010 17733 7 214.00 mg/dL 77791 010 14758 6 64.00 mm[Hg] - Sitting 110.00 mm[Hg] - Sitting 72.00/ min 52692 010 31423 7 98.40 Tympanic 06307 010 47447 1 212.00 mg/dL 24862 010 55060 2 212.00 mg/dL 41089 010 46075 1 115.00 mg/dL 12729 010 82579 0 115.00 mg/dL 66735 010 65628 4 98.50 Tympanic 44614 010 79755 4 150.00 mg/dL 70500 010 12697 0 150.00 mg/dL 82534 011 08376 9 98.60 Tympanic 85189 011 58509 1 67.00 mm[Hg] - Sitting 144.00 mm[Hg] - Sitting 98.20 Tympanic 98.00 % 61.00/ min 18.00/min 06164 011 34946 7 290.00 mg/dL 55274 011 32850 2 290.00 mg/dL 76592 011 03012 2 290.00 mg/dL 02208 011 99084 7 54.00 mm[Hg] - Sitting 136.00 mm[Hg] - Sitting 101.00 /min 92795 011 01352 7 98.60 Tympanic 90813 011 62944 5 240.00 mg/dL 70218 011 03961 1 240.00 mg/dL 11061 011 43068 1 156.00 mg/dL 95319 011 55995 9 156.00 mg/dL 30465 011 94320 0 97.80 Tympanic 60463 011 32118 8 343.00 mg/dL 22386 012 31095 9 97.90 Tympanic 55751 012 09581 2 466.00 mg/dL 46802 012 48878 1 466.00 mg/dL 83508 012 28063 3 466.00 mg/dL 31733 012 61179 8 97.90 Tympanic 69183 012 50793 8 56.00 mm[Hg] - Sitting 96.00 mm[Hg] - Sitting 61.00/ min 61649 012 66005 7 350.00 mg/dL 35985 012 29580 5 350.00 mg/dL 80967 012 63743 6 111.00 mg/dL 54877 012 53220 0 111.00 mg/dL 11741 012 61659 5 98.40 Tympanic 76947 012 47347 6 114.00 mg/dL 77304 013 69054 4 74.00 mm[Hg] - Sitting 112.00 mm[Hg] - Sitting 98.40 Tympanic 70.00/ min 18.00/min 94291 013 36650 8 244.00 mg/dL 34555 013 95862 7 244.00 mg/dL 51268 013 53307 1 244.00 mg/dL 96978 013 29403 1 98.20 Tympanic 01892 013 52834 7 72.00 mm[Hg] - Sitting 119.00 mm[Hg] - Sitting 76.00/ min 20732 013 01743 7 253.00 mg/dL 58198 013 58840 4 253.00 mg/dL 48149 013 19450 9 156.00 mg/dL 51117 013 68680 5 156.00 mg/dL 33663 013 51316 4 97.90 Tympanic 21196 013 59041 5 189.00 mg/dL 49246 014 35828 9 98.10 Tympanic 27095 014 07093 3 169.00 mg/dL 014 49250 3 98.10 Tympanic 014 38468 3 75.00 mm[Hg] - Sitting 121.00 mm[Hg] - Sitting 71.00/ min 014 87489 9 221.00 mg/dL Immunizations Vaccine Date Status COVID-19 09/20/2023 Completed Other 10/08/2023 Completed Shingles 05/27/2011 Completed Tetanus 04/13/2022 Completed TDaP 04/13/2022 Completed Shingles 2 10/05/2018 Completed
--- OUTSIDE RECORDS SUMMARY | 2024-10-03 11:14 | External Medical Summary | Continuity Of Care Document ---
Author Name Unknown Address [address] [address] Organization [facility] () Care Team Providers Care Sizer Machine Name Role Phone DO Machado Amy Primary Care Provider [phone] Allergies Allergy Reaction Start Date End Date [...] 3 0.1 mL 08/29 Inactiv e 2023 95465 29825 0 1 time Intrad ermal False Tubersol 5 tub. unit/0.1 mL intradermal injection solution [Tuberculin PPD] 0.1mL Intradermal 1 time For PPD 2nd Step Give 2nd Step PPD Day 1 and Read results Day 3 (schedule 7 days after 1st READ) 0.1mL 09/08 Active 2023 17901 65008 0 1 time Intrad ermal False Humalog [...] order For Diabetes 08/25 Inactiv e 2023 23405 55393 9 4 times a day Subcut aneous False Aspirin 325 mg tablet [generic] 325 By Mouth Twice daily For Anticoagulati on 325 09/25 Active 2023 49560 18443 1 Twice daily By Mouth False Ferrous sulfate 325 mg (65 mg iron) tablet [generic] 325 By Mouth Once daily For anemia 325 2023 Active 2023 36696 51887 5 Once daily By Mouth False Linezolid 600 mg tablet [generic] 600 mg By Mouth Every 12 hours For MRSA INFECTION L BKA 600 mg 08/25 Inactiv e 2023 44589 96452 1 Every 12 hours By Mouth False Cefpodoxime 200 mg tablet [generic] 400 mg By Mouth Twice daily For MRSA INFECTION L BKA 400 mg 08/25 Inactiv e 2023 86462 90026 0 Twice daily By Mouth False Coenzyme Q10 100 mg tablet [generic] 100 mg By Mouth Once daily For SUPP 100 mg 2023 Active 2023 40565 67714 0 Once daily By Mouth False Levothyroxi ne 50 mcg tablet [generic] 50mcg By Mouth Once daily For hypothyroidis m 50mcg 2023 Active 2023 22152 53838 0 Once daily By Mouth False One A Day Men Complete 240 mcg-25 mcg-300 mcg tablet 1 tab By Mouth Once daily For supplement 1 tab 2023 Active 2023 08084 61274 1 Once daily By Mouth False Cholecalcif adalberto (vitamin D3) 50 mcg (2,000 unit) tablet [generic] 1 TAB By Mouth Once daily For SUPP 1 TAB 2023 Active 2023 01150 98829 1 Once daily By Mouth False Cetirizine 10 mg tablet [generic] 1 TAB By Mouth At bedtime For Allergies 1 TAB 2023 Active 2023 27727 52537 0 At bedtime By Mouth False Timolol maleate 0.25 % eye drops [generic] 1 drop Both Eyes Twice daily For glaucoma 1 drop 2023 0000 /0000 Active 2023 91361 44657 5 Twice daily Both Eyes False Alendronate 35 mg tablet [generic] 35mg By Mouth Every week For SIADH 35mg 08/31 Inactiv e 2023 21983 45571 5 Every week By Mouth False Lantus Solostar U-100 Insulin 100 unit/mL (3 mL) subcutaneou s pen 18 units Subcutaneous Every morning For DIABETES 18 units 08/25 Inactiv e 2023 33174 02712 0 Every morning Subcut aneous False Lantus Solostar U-100 Insulin 100 unit/mL (3 mL) subcutaneou s pen 18 units Subcutaneous Every morning For DIABETES 18 units 2023 Active 2023 28556 80207 0 Every morning Subcut aneous False Linezolid 600 mg tablet [generic] 600 mg By Mouth Every 12 hours For MRSA INFECTION L BKA 600 mg 08/28 Inactiv e 2023 46903 52421 1 Every 12 hours By Mouth False [...] order For Diabetes 08/31 Inactiv e 2023 71954 36475 9 4 times a day Subcut aneous False Cefpodoxime 200 mg tablet [generic] 400 mg By Mouth Twice daily For MRSA INFECTION L BKA 400 mg 08/28 Inactiv e 2023 16816 90087 0 Twice daily By Mouth False Brimonidine 0.1 % eye drops [generic] 1 drop Both Eyes Twice daily For glaucoma 1 drop 2023 Active 2023 34451 89326 0 Twice daily Both Eyes False Metoprolol succinate ER 50 mg tablet,exte nded release 24 hr [generic] 50 mg By Mouth Once daily HOLD FOR SBP <100, or pulse <60 For HTN 50 mg 2023 Active 2023 37896 60937 1 Once daily By Mouth False Amlodipine 2.5 mg tablet [generic] 2.5 mg By Mouth Once daily For HTN 2.5 mg 2023 Active 2023 40371 53023 5 Once daily By Mouth False Docusate sodium 100 mg capsule [generic] 100mg By Mouth Twice daily as needed For constipation HOLD FOR LOOSE STOOLS 100mg 2023 Active 2023 40594 87489 1 Twice daily as needed By Mouth False Atorvastati n 40 mg tablet [generic] 40mg By Mouth Once daily For HDL 40mg 08/26 Inactiv e 2023 70847 25773 5 Once daily By Mouth False Tylenol 325 mg tablet 2 tabs By Mouth Every 4 hours as needed For Pain DO NOT EXCEED 3000 MG APAP/24 Hours 2 tabs 2023 Active 2023 95179 42723 0 Every 4 hours as needed By Mouth False Tylenol 325 mg tablet 2 tabs By Mouth Every 4 hours as needed For Fever >100 DO NOT EXCEED 3000 MG APAP/24 Hours 2 tabs 2023 Active 2023 97195 13400 0 Every 4 hours as needed By Mouth False Dulcolax (bisacodyl) 10 mg rectal suppository One Suppository per rectum PRN if Milk of Magnisia ineffective. Give on day 5 of no BM 1 sup 2023 Active 2023 33654 27521 1 Daily as needed Rectal False Fleet Enema 19 gram-7 gram/118 mL Administer per rectum PRN one time if dulcolax suppository not effective. Give on day 6 of no BM 1 2023 Active 2023 31160 89494 6 Daily as needed Rectal False Dextrose 50 % in water (D50W) intravenous solution [generic] Dextrose 50% evonne 20-50 ml (slow push) Intravenous if Glucagon not effective after 15 minutes. CALL 911 for ED Evaluation. 50% evonne 2023 Active 2023 14529 13534 9 Intrav enous False Glucagon (HCl) Emergency Kit 1 mg solution for injection Administer Glucagon 1 mg Intramuscular if 15 minutes after GLucose Gel is administered Glucose remains less than 70 1 mg 2023 Active 2023 84192 37849 2 Intram uscula r False Glucose Gel 40 % oral gel [Dextrose] PRN If resident is unable to swallow (with or without symptoms) and Glucose results less than 70 give GLucose 40% Gel 1 tube orally - Recheck Glucose 15 minutes after administratio n. 1 tube 2023 Active 2023 88272 21240 8 By Mouth False Milk of Magnesia 400 mg/5 mL oral suspension [Magnesium hydroxide] PRN 30ml By Mouth Daily as needed for constipation one time daily if no BM, on day 4 of no BM (PRN refer to instructions) For Constipation 30 mL 2023 Active 2023 34189 55594 6 Daily as needed By Mouth False Atorvastati n 40 mg tablet [generic] 08/26 Inactiv e 2023 98368 09219 5 Atorvastati n 40 mg tablet [generic] 40mg By Mouth Once daily For HDL 40mg 2023 Active 2023 13115 20911 5 Once daily By Mouth False Insulin aspart (U-100) 100 unit/mL (3 mL) subcutaneou s pen [generic] 15 units Subcutaneous 1 time For dm 15 units 08/26 Inactiv e 2023 30774 24175 5 1 time Subcut aneous False Humalog KwikPen (U-100) Insulin 100 unit/mL subcutaneou s 15 units Subcutaneous 1 time For dm 15 units 08/27 Inactiv e 2023 62902 77086 9 1 time Subcut aneous False Linezolid 600 mg tablet [generic] 600 mg By Mouth Every 12 hours For MRSA INFECTION L BKA 600 mg 09/06 Active 2023 77794 40326 1 Every 12 hours By Mouth False Cefpodoxime 200 mg tablet [generic] 400 mg By Mouth Twice daily For MRSA INFECTION L BKA 400 mg 08/31 Inactiv e 2023 26705 65108 0 Twice daily By Mouth False Senna 8.6 mg tablet 8.6 mg By Mouth Once daily For Constipation 8.6 mg 2023 Active 2023 28268 89433 1 Once daily By Mouth False Humalog [...] abnormalities . Per Carb 2023 Active 2023 34346 58539 9 4 times a day Subcut aneous False Alendronate 35 mg tablet [generic] 08/31 Inactiv e 2023 65085 28722 5 Alendronate 35 mg tablet [generic] 35mg By Mouth Every week For Osteoporosis 35mg 2023 Active 2023 14580 41318 5 Every week By Mouth False ProSource 10 gram-100 kcal/30 mL oral liquid 30 ml By Mouth Once daily For wound healing 30 ml 2023 Active 2023 48435 86720 2 Once daily By Mouth False Humalog KwikPen (U-100) Insulin 100 unit/mL subcutaneou s 08/31 Inactiv e 2023 11507 24101 9 MediHoney HCS 4 1/2in X 4 1/2in bandage Cleanse area with NSS, apply one medihoney hydrocolloid dressing, non adherent dressing, kerlix secure with paper tape daily. For wound stage III 1 2023 Active 2023 76370 69574 1 Once daily Topica l False Problems [...] weight Temperature SpO2 Blood Sugar Pulse Respirations 79427 8 67.00 mm[Hg] - Sitting 145.00 mm[Hg] - Sitting 98.50 Forehead Scan 96.00 % 81.00/ min 16.00/min 91808 004 06099 2 67.00 mm[Hg] - Sitting 145.00 mm[Hg] - Sitting 98.50 Tympanic 81.00/ min 16.00/min 54266 004 90231 5 56.00 mm[Hg] - Sitting 142.00 mm[Hg] - Sitting 136.40 NI 100.20 Tympanic 96.00 % 92.00/ min 18.00/min 01680 004 97066 6 00601 004 28397 4 143.00 mg/dL 004 61130 0 97.80 Tympanic 76742 005 46291 7 60.00 mm[Hg] - Sitting 140.00 mm[Hg] - Sitting 98.00 Tympanic 84.00/ min 18.00/min 53856 005 82882 0 63.00 mm[Hg] - Sitting 141.00 mm[Hg] - Sitting 98.20 Tympanic 92.00 % 63.00/ min 16.00/min 45415 005 80703 8 69.00 mm[Hg] - Sitting 106.00 mm[Hg] - Sitting 97.20 Tympanic 37639 005 30603 7 69.00/ min 16.00/min 72847 005 57074 3 69.00 mm[Hg] - Sitting 106.00 mm[Hg] - Sitting 98.20 Tympanic 69.00/ min 16.00/min 81786 005 46395 1 367.00 mg/dL 72324 005 49062 2 97.20 Tympanic 33645 005 42304 4 97.20 Tympanic 72183 005 04690 0 69.00 mm[Hg] - Sitting 106.00 mm[Hg] - Sitting 69.00/ min 91253 005 45444 3 452.00 mg/dL 26797 005 09551 3 452.00 mg/dL 57072 005 30194 5 352.00 mg/dL 51675 005 64280 3 352.00 mg/dL 28727 005 99851 7 98.20 Tympanic 02654 005 12950 3 101.00 mg/dL 89325 005 8 101.00 mg/dL 17629 006 21433 4 66.00 mm[Hg] - Sitting 107.00 mm[Hg] - Sitting 98.00 Tympanic 66.00/ min 18.00/min 74084 006 41177 0 62.00 mm[Hg] - Sitting 162.00 mm[Hg] - Sitting 98.20 Tympanic 96.00 % 60.00/ min 16.00/min 84584 006 99958 4 62.00 mm[Hg] - Sitting 162.00 mm[Hg] - Sitting 98.00 Tympanic 70.00/ min 18.00/min 03293 006 78674 8 62.00 mm[Hg] - Sitting 162.00 mm[Hg] - Sitting 98.20 Tympanic 70.00/ min 18.00/min 75363 006 84195 2 66.00 mm[Hg] - Sitting 132.00 mm[Hg] - Sitting 98.60 Tympanic 74.00/ min 16.00/min 58000 006 30476 5 159.00 mg/dL 95204 006 10314 1 159.00 mg/dL 44549 006 38985 8 98.00 Tympanic 46075 006 00293 2 62.00 mm[Hg] - Sitting 162.00 mm[Hg] - Sitting 70.00/ min 31482 006 77969 7 264.00 mg/dL 27010 006 84932 7 264.00 mg/dL 25174 006 59758 4 196.00 mg/dL 58665 006 55351 3 98.20 Tympanic 39740 006 47495 6 271.00 mg/dL 86713 007 71806 3 97.20 Tympanic 78955 007 77564 2 63.00 mm[Hg] - Sitting 132.00 mm[Hg] - Sitting 98.50 Tympanic 94.00 % 66.00/ min 16.00/min 32786 007 71284 5 188.00 mg/dL 29770 007 09641 2 188.00 mg/dL 90185 007 31403 2 188.00 mg/dL 20108 007 77839 7 97.20 Tympanic 98659 007 93557 6 97.20 Tympanic 64972 007 26580 5 67.00 mm[Hg] - Sitting 152.00 mm[Hg] - Sitting 68.00/ min 23801 007 83414 0 141.00 mg/dL 14519 007 24854 3 141.00 mg/dL 59862 007 55210 1 366.00 mg/dL 37394 007 33989 7 366.00 mg/dL 80487 007 50044 7 98.00 Tympanic 61806 007 88199 6 324.00 mg/dL 37243 007 56162 3 98.00 Tympanic 98397 007 29992 7 324.00 mg/dL 98436 008 26043 0 98.00 Tympanic 15472 008 42604 2 97.90 Tympanic 47144 008 71127 0 98.20 Tympanic 10269 008 23079 0 73.00 mm[Hg] - Sitting 156.00 mm[Hg] - Sitting 98.60 Tympanic 99.00 % 66.00/ min 20.00/min 66783 008 20153 5 137.00 mg/dL 40568 008 20306 7 137.00 mg/dL 82204 008 62814 2 97.90 Tympanic 07088 008 24213 1 137.00 mg/dL 42924 008 11557 8 97.90 Tympanic 02064 008 82295 5 67.00 mm[Hg] - Sitting 124.00 /min 75427 008 46458 6 212.00 mg/dL 71285 008 64794 6 212.00 mg/dL 63090 008 11313 9 317.00 mg/dL 61956 008 17280 4 317.00 mg/dL 86409 008 35173 8 252.00 mg/dL 66584 008 22470 0 98.70 Tympanic 26039 008 84108 7 252.00 mg/dL 06381 008 18577 3 98.70 Tympanic 57476 009 06282 9 98.70 Tympanic 33027 009 77260 3 98.20 Tympanic 69024 009 29250 5 98.40 Tympanic 65538 009 02279 5 57.00 mm[Hg] - Sitting 129.00 mm[Hg] - Sitting 98.30 Tympanic 97.00 % 65.00/ min 18.00/min 77080 009 28298 1 255.00 mg/dL 33936 009 74348 4 255.00 mg/dL 09388 009 96437 5 98.20 Tympanic 80165 009 32457 0 255.00 mg/dL 15780 009 75404 0 98.20 Tympanic 94077 009 00175 4 63.00 mm[Hg] - Lying Down 102.00 mm[Hg] - Lying Down 58.00/ min 42800 009 19700 0 167.00 mg/dL 61093 009 10223 1 167.00 mg/dL 47171 009 35426 2 164.00 mg/dL 30800 009 82065 1 164.00 mg/dL 17405 009 96513 5 208.00 mg/dL 92379 010 14450 3 98.40 Tympanic 85419 010 92515 5 98.40 Tympanic 52227 010 22910 7 66 [place] [address] 010 08159 4 60.00 mm[Hg] - Sitting 143.00 mm[Hg] - Sitting 98.90 Tympanic 98.00 % 67.00/ min 18.00/min 67921 010 82566 2 214.00 mg/dL 99355 010 20523 0 214.00 mg/dL 88243 010 09751 7 214.00 mg/dL 44436 010 62935 6 64.00 mm[Hg] - Sitting 110.00 mm[Hg] - Sitting 72.00/ min 45949 010 99467 7 98.40 Tympanic 40476 010 37865 1 212.00 mg/dL 14390 010 71782 2 212.00 mg/dL 12817 010 48975 1 115.00 mg/dL 18485 010 99876 0 115.00 mg/dL 64137 010 15519 4 98.50 Tympanic 11935 010 40058 4 150.00 mg/dL 82047 010 39668 0 150.00 mg/dL 58753 011 81592 9 98.60 Tympanic 35570 011 60234 1 67.00 mm[Hg] - Sitting 144.00 mm[Hg] - Sitting 98.20 Tympanic 98.00 % 61.00/ min 18.00/min 57426 011 78819 7 290.00 mg/dL 01987 011 11058 2 290.00 mg/dL 89537 011 07045 2 290.00 mg/dL 41780 011 01849 7 54.00 mm[Hg] - Sitting 136.00 mm[Hg] - Sitting 101.00 /min 51629 011 47155 7 98.60 Tympanic 21066 011 79524 5 240.00 mg/dL 72835 011 61926 1 240.00 mg/dL 57943 011 89265 1 156.00 mg/dL 62316 011 52067 9 156.00 mg/dL 46482 011 51167 0 97.80 Tympanic 06864 011 97680 8 343.00 mg/dL 98824 012 48432 9 97.90 Tympanic 94759 012 83395 2 466.00 mg/dL 78885 012 72788 1 466.00 mg/dL 75099 012 17717 3 466.00 mg/dL 69849 012 33497 8 97.90 Tympanic 73352 012 05489 8 56.00 mm[Hg] - Sitting 96.00 mm[Hg] - Sitting 61.00/ min 63227 012 31894 7 350.00 mg/dL 24888 012 30704 5 350.00 mg/dL 68862 012 94462 6 111.00 mg/dL 27888 012 78736 0 111.00 mg/dL 19668 012 09114 5 98.40 Tympanic 20320 012 90534 6 114.00 mg/dL 25923 013 29082 4 74.00 mm[Hg] - Sitting 112.00 mm[Hg] - Sitting 98.40 Tympanic 70.00/ min 18.00/min 15538 013 06467 8 244.00 mg/dL 84285 013 46325 7 244.00 mg/dL 90682 013 60356 1 244.00 mg/dL 83225 013 76457 1 98.20 Tympanic 28187 013 40875 7 72.00 mm[Hg] - Sitting 119.00 mm[Hg] - Sitting 76.00/ min 96128 013 97682 7 253.00 mg/dL 98066 013 83252 4 253.00 mg/dL 84856 013 60391 9 156.00 mg/dL 75942 013 19529 5 156.00 mg/dL 77802 013 85847 4 97.90 Tympanic 13852 013 82887 5 189.00 mg/dL 62075 014 72674 3 169.00 mg/dL Immunizations Vaccine Date Status COVID-19 09/20/2023 Completed Other 10/08/2023 Completed Shingles 05/27/2011 Completed Tetanus 04/13/2022 Completed TDaP 04/13/2022 Completed Shingles 2 10/05/2018 Completed
--- OUTSIDE RECORDS SUMMARY | 2024-10-03 11:14 | External Medical Summary | Continuity Of Care Document ---
Author Name Unknown Address [address] [address] Organization [facility] () Care Team Providers Care Director Of Customer Service Name Role Phone DO Machado Amy Primary Care Provider [phone] Allergies Allergy Reaction Start Date End Date [...] 3 0.1 mL 08/29 Inactiv e 2023 00776 32723 0 1 time Intrad ermal False Tubersol 5 tub. unit/0.1 mL intradermal injection solution [Tuberculin PPD] 0.1mL Intradermal 1 time For PPD 2nd Step Give 2nd Step PPD Day 1 and Read results Day 3 (schedule 7 days after 1st READ) 0.1mL 09/08 Active 2023 77791 45975 0 1 time Intrad ermal False Humalog [...] order For Diabetes 08/25 Inactiv e 2023 46798 10486 9 4 times a day Subcut aneous False Aspirin 325 mg tablet [generic] 325 By Mouth Twice daily For Anticoagulati on 325 09/25 Active 2023 86231 17825 1 Twice daily By Mouth False Ferrous sulfate 325 mg (65 mg iron) tablet [generic] 325 By Mouth Once daily For anemia 325 2023 Active 2023 20826 58464 5 Once daily By Mouth False Linezolid 600 mg tablet [generic] 600 mg By Mouth Every 12 hours For MRSA INFECTION L BKA 600 mg 08/25 Inactiv e 2023 45276 85436 1 Every 12 hours By Mouth False Cefpodoxime 200 mg tablet [generic] 400 mg By Mouth Twice daily For MRSA INFECTION L BKA 400 mg 08/25 Inactiv e 2023 63717 67044 0 Twice daily By Mouth False Coenzyme Q10 100 mg tablet [generic] 100 mg By Mouth Once daily For SUPP 100 mg 2023 Active 2023 86900 80150 0 Once daily By Mouth False Levothyroxi ne 50 mcg tablet [generic] 50mcg By Mouth Once daily For hypothyroidis m 50mcg 2023 Active 2023 29136 22102 0 Once daily By Mouth False One A Day Men Complete 240 mcg-25 mcg-300 mcg tablet 1 tab By Mouth Once daily For supplement 1 tab 2023 Active 2023 01861 16549 1 Once daily By Mouth False Cholecalcif adalberto (vitamin D3) 50 mcg (2,000 unit) tablet [generic] 1 TAB By Mouth Once daily For SUPP 1 TAB 2023 Active 2023 82821 46704 1 Once daily By Mouth False Cetirizine 10 mg tablet [generic] 1 TAB By Mouth At bedtime For Allergies 1 TAB 2023 Active 2023 01495 61435 0 At bedtime By Mouth False Timolol maleate 0.25 % eye drops [generic] 1 drop Both Eyes Twice daily For glaucoma 1 drop 2023 0000 /0000 Active 2023 99259 17378 5 Twice daily Both Eyes False Alendronate 35 mg tablet [generic] 35mg By Mouth Every week For SIADH 35mg 08/31 Inactiv e 2023 30687 08528 5 Every week By Mouth False Lantus Solostar U-100 Insulin 100 unit/mL (3 mL) subcutaneou s pen 18 units Subcutaneous Every morning For DIABETES 18 units 08/25 Inactiv e 2023 01202 90120 0 Every morning Subcut aneous False Lantus Solostar U-100 Insulin 100 unit/mL (3 mL) subcutaneou s pen 18 units Subcutaneous Every morning For DIABETES 18 units 2023 Active 2023 06836 15152 0 Every morning Subcut aneous False Linezolid 600 mg tablet [generic] 600 mg By Mouth Every 12 hours For MRSA INFECTION L BKA 600 mg 08/28 Inactiv e 2023 46462 30556 1 Every 12 hours By Mouth False [...] order For Diabetes 08/31 Inactiv e 2023 17775 79536 9 4 times a day Subcut aneous False Cefpodoxime 200 mg tablet [generic] 400 mg By Mouth Twice daily For MRSA INFECTION L BKA 400 mg 08/28 Inactiv e 2023 22938 21387 0 Twice daily By Mouth False Brimonidine 0.1 % eye drops [generic] 1 drop Both Eyes Twice daily For glaucoma 1 drop 2023 Active 2023 98807 18600 0 Twice daily Both Eyes False Metoprolol succinate ER 50 mg tablet,exte nded release 24 hr [generic] 50 mg By Mouth Once daily HOLD FOR SBP <100, or pulse <60 For HTN 50 mg 2023 Active 2023 32544 06048 1 Once daily By Mouth False Amlodipine 2.5 mg tablet [generic] 2.5 mg By Mouth Once daily For HTN 2.5 mg 2023 Active 2023 71074 69195 5 Once daily By Mouth False Docusate sodium 100 mg capsule [generic] 100mg By Mouth Twice daily as needed For constipation HOLD FOR LOOSE STOOLS 100mg 2023 Active 2023 73681 67284 1 Twice daily as needed By Mouth False Atorvastati n 40 mg tablet [generic] 40mg By Mouth Once daily For HDL 40mg 08/26 Inactiv e 2023 53352 23286 5 Once daily By Mouth False Tylenol 325 mg tablet 2 tabs By Mouth Every 4 hours as needed For Pain DO NOT EXCEED 3000 MG APAP/24 Hours 2 tabs 2023 Active 2023 52449 08631 0 Every 4 hours as needed By Mouth False Tylenol 325 mg tablet 2 tabs By Mouth Every 4 hours as needed For Fever >100 DO NOT EXCEED 3000 MG APAP/24 Hours 2 tabs 2023 Active 2023 61132 68311 0 Every 4 hours as needed By Mouth False Dulcolax (bisacodyl) 10 mg rectal suppository One Suppository per rectum PRN if Milk of Magnisia ineffective. Give on day 5 of no BM 1 sup 2023 Active 2023 97623 13923 1 Daily as needed Rectal False Fleet Enema 19 gram-7 gram/118 mL Administer per rectum PRN one time if dulcolax suppository not effective. Give on day 6 of no BM 1 2023 Active 2023 16364 76200 6 Daily as needed Rectal False Dextrose 50 % in water (D50W) intravenous solution [generic] Dextrose 50% evonne 20-50 ml (slow push) Intravenous if Glucagon not effective after 15 minutes. CALL 911 for ED Evaluation. 50% evonne 2023 Active 2023 44617 43729 9 Intrav enous False Glucagon (HCl) Emergency Kit 1 mg solution for injection Administer Glucagon 1 mg Intramuscular if 15 minutes after GLucose Gel is administered Glucose remains less than 70 1 mg 2023 Active 2023 31048 58390 2 Intram uscula r False Glucose Gel 40 % oral gel [Dextrose] PRN If resident is unable to swallow (with or without symptoms) and Glucose results less than 70 give GLucose 40% Gel 1 tube orally - Recheck Glucose 15 minutes after administratio n. 1 tube 2023 Active 2023 14310 53223 8 By Mouth False Milk of Magnesia 400 mg/5 mL oral suspension [Magnesium hydroxide] PRN 30ml By Mouth Daily as needed for constipation one time daily if no BM, on day 4 of no BM (PRN refer to instructions) For Constipation 30 mL 2023 Active 2023 75465 82371 6 Daily as needed By Mouth False Atorvastati n 40 mg tablet [generic] 08/26 Inactiv e 2023 28989 68344 5 Atorvastati n 40 mg tablet [generic] 40mg By Mouth Once daily For HDL 40mg 2023 Active 2023 94149 59124 5 Once daily By Mouth False Insulin aspart (U-100) 100 unit/mL (3 mL) subcutaneou s pen [generic] 15 units Subcutaneous 1 time For dm 15 units 08/26 Inactiv e 2023 16210 04150 5 1 time Subcut aneous False Humalog KwikPen (U-100) Insulin 100 unit/mL subcutaneou s 15 units Subcutaneous 1 time For dm 15 units 08/27 Inactiv e 2023 54942 36016 9 1 time Subcut aneous False Linezolid 600 mg tablet [generic] 600 mg By Mouth Every 12 hours For MRSA INFECTION L BKA 600 mg 09/06 Active 2023 58061 90378 1 Every 12 hours By Mouth False Cefpodoxime 200 mg tablet [generic] 400 mg By Mouth Twice daily For MRSA INFECTION L BKA 400 mg 08/31 Inactiv e 2023 65210 13262 0 Twice daily By Mouth False Senna 8.6 mg tablet 8.6 mg By Mouth Once daily For Constipation 8.6 mg 2023 Active 2023 14480 60342 1 Once daily By Mouth False Humalog [...] abnormalities . Per Carb 2023 Active 2023 50720 10202 9 4 times a day Subcut aneous False Alendronate 35 mg tablet [generic] 08/31 Inactiv e 2023 69470 79386 5 Alendronate 35 mg tablet [generic] 35mg By Mouth Every week For Osteoporosis 35mg 2023 Active 2023 91111 21115 5 Every week By Mouth False ProSource 10 gram-100 kcal/30 mL oral liquid 30 ml By Mouth Once daily For wound healing 30 ml 2023 Active 2023 25451 01254 2 Once daily By Mouth False Clotrimazol e 1 % topical cream [generic] 1 applicaiton Topical Twice daily For tinea, apply to groin rash after cleansing and throughouly drying. Can discontinue order 3 days after rash resolves. 1 applica stacy 10/04 Active 2023 70022 86139 0 Twice daily Topica l False Humalog KwikPen (U-100) Insulin 100 unit/mL subcutaneou s 08/31 Inactiv e 2023 27216 77960 9 MediHoney HCS 4 1/2in X 4 1/2in bandage Cleanse area with NSS, apply one medihoney hydrocolloid dressing, non adherent dressing, kerlix secure with paper tape daily. For wound stage III 1 2023 Active 2023 34229 37563 1 Once daily Topica l False Problems Code Description Start Date End Date Status D64.9 Anemia, unspecified 08/25/2024 Activ e I25.10 Atherosclerotic hear t disease of [place] coronary artery without angina pectoris 08/25/2024 [...] weight Temperature SpO2 Blood Sugar Pulse Respirations 46036 8 67.00 mm[Hg] - Sitting 145.00 mm[Hg] - Sitting 98.50 Forehead Scan 96.00 % 81.00/ min 16.00/min 004 80405 2 67.00 mm[Hg] - Sitting 145.00 mm[Hg] - Sitting 98.50 Tympanic 81.00/ min 16.00/min 57128 004 27350 5 56.00 mm[Hg] - Sitting 142.00 mm[Hg] - Sitting 136.40 NI 100.20 Tympanic 96.00 % 92.00/ min 18.00/min 99006 004 08523 6 83927 004 17954 4 143.00 mg/dL 81533 0 97.80 Tympanic 005 60749 7 60.00 mm[Hg] - Sitting 140.00 mm[Hg] - Sitting 98.00 Tympanic 84.00/ min 18.00/min 88500 005 57096 0 63.00 mm[Hg] - Sitting 141.00 mm[Hg] - Sitting 98.20 Tympanic 92.00 % 63.00/ min 16.00/min 01373 005 21140 8 69.00 mm[Hg] - Sitting 106.00 mm[Hg] - Sitting 97.20 Tympanic 005 73112 7 69.00/ min 16.00/min 99651 005 27843 3 69.00 mm[Hg] - Sitting 106.00 mm[Hg] - Sitting 98.20 Tympanic 69.00/ min 16.00/min 80241 005 14200 1 367.00 mg/dL 11192 005 40438 2 97.20 Tympanic 42929 005 46583 4 97.20 Tympanic 34164 005 93885 0 69.00 mm[Hg] - Sitting 106.00 mm[Hg] - Sitting 69.00/ min 39596 005 56147 3 452.00 mg/dL 48750 005 36893 3 452.00 mg/dL 75448 005 51550 5 352.00 mg/dL 97223 005 67380 3 352.00 mg/dL 95934 005 46198 7 98.20 Tympanic 79020 005 3 101.00 mg/dL 78371 005 8 101.00 mg/dL 27989 006 57010 4 66.00 mm[Hg] - Sitting 107.00 mm[Hg] - Sitting 98.00 Tympanic 66.00/ min 18.00/min 38097 006 97428 0 62.00 mm[Hg] - Sitting 162.00 mm[Hg] - Sitting 98.20 Tympanic 96.00 % 60.00/ min 16.00/min 52579 006 34493 4 62.00 mm[Hg] - Sitting 162.00 mm[Hg] - Sitting 98.00 Tympanic 70.00/ min 18.00/min 49999 006 69407 8 62.00 mm[Hg] - Sitting 162.00 mm[Hg] - Sitting 98.20 Tympanic 70.00/ min 18.00/min 91641 006 86263 2 66.00 mm[Hg] - Sitting 132.00 mm[Hg] - Sitting 98.60 Tympanic 74.00/ min 16.00/min 52898 006 95572 5 159.00 mg/dL 62224 006 44713 1 159.00 mg/dL 11266 006 95446 8 98.00 Tympanic 30470 006 84590 2 62.00 mm[Hg] - Sitting 162.00 mm[Hg] - Sitting 70.00/ min 32829 006 16612 7 264.00 mg/dL 83203 006 87917 7 264.00 mg/dL 62593 006 36342 4 196.00 mg/dL 09486 006 07919 3 98.20 Tympanic 44864 006 80367 6 271.00 mg/dL 31231 007 16089 3 97.20 Tympanic 04512 007 60707 2 63.00 mm[Hg] - Sitting 132.00 mm[Hg] - Sitting 98.50 Tympanic 94.00 % 66.00/ min 16.00/min 16208 007 41973 5 188.00 mg/dL 20788 007 51713 2 188.00 mg/dL 01424 007 56455 2 188.00 mg/dL 84200 007 92974 7 97.20 Tympanic 65266 007 79292 6 97.20 Tympanic 00154 007 29709 5 67.00 mm[Hg] - Sitting 152.00 mm[Hg] - Sitting 68.00/ min 56233 007 16586 0 141.00 mg/dL 53841 007 82444 3 141.00 mg/dL 65829 007 49913 1 366.00 mg/dL 12837 007 37316 7 366.00 mg/dL 99860 007 04474 7 98.00 Tympanic 24390 007 84351 6 324.00 mg/dL 30070 007 13790 3 98.00 Tympanic 08429 007 81704 7 324.00 mg/dL 76616 008 49397 0 98.00 Tympanic 49619 008 71425 2 97.90 Tympanic 27024 008 87701 0 98.20 Tympanic 30524 008 80764 0 73.00 mm[Hg] - Sitting 156.00 mm[Hg] - Sitting 98.60 Tympanic 99.00 % 66.00/ min 20.00/min 09395 008 18661 5 137.00 mg/dL 66609 008 94659 7 137.00 mg/dL 35228 008 31379 2 97.90 Tympanic 53513 008 60316 1 137.00 mg/dL 32963 008 18533 8 97.90 Tympanic 61536 008 06048 5 67.00 mm[Hg] - Sitting 124.00 /min 10921 008 07826 6 212.00 mg/dL 83006 008 38806 6 212.00 mg/dL 83094 008 09077 9 317.00 mg/dL 14353 008 41492 4 317.00 mg/dL 09657 008 09822 8 252.00 mg/dL 48108 008 75247 0 98.70 Tympanic 35652 008 89496 7 252.00 mg/dL 57058 008 95741 3 98.70 Tympanic 43603 009 08329 9 98.70 Tympanic 82125 009 67926 3 98.20 Tympanic 61454 009 17335 5 98.40 Tympanic 92702 009 37087 5 57.00 mm[Hg] - Sitting 129.00 mm[Hg] - Sitting 98.30 Tympanic 97.00 % 65.00/ min 18.00/min 88439 009 27377 1 255.00 mg/dL 89031 009 95159 4 255.00 mg/dL 44360 009 21067 5 98.20 Tympanic 39410 009 47351 0 255.00 mg/dL 13989 009 72485 0 98.20 Tympanic 88477 009 01347 4 63.00 mm[Hg] - Lying Down 102.00 mm[Hg] - Lying Down 58.00/ min 77280 009 86327 0 167.00 mg/dL 78299 009 54276 1 167.00 mg/dL 56642 009 38416 2 164.00 mg/dL 37860 009 33895 1 164.00 mg/dL 34493 009 17156 5 208.00 mg/dL 28913 010 81048 3 98.40 Tympanic 89504 010 56656 5 98.40 Tympanic 98320 010 58410 7 66 [place] [address]277 010 96248 4 60.00 mm[Hg] - Sitting 143.00 mm[Hg] - Sitting 98.90 Tympanic 98.00 % 67.00/ min 18.00/min 01852 010 82196 2 214.00 mg/dL 98992 010 72236 0 214.00 mg/dL 26860 010 60304 7 214.00 mg/dL 75566 010 39320 6 64.00 mm[Hg] - Sitting 110.00 mm[Hg] - Sitting 72.00/ min 71061 010 43941 7 98.40 Tympanic 26177 010 92994 1 212.00 mg/dL 10938 010 75675 2 212.00 mg/dL 36674 010 48549 1 115.00 mg/dL 94028 010 61569 0 115.00 mg/dL 72856 010 96927 4 98.50 Tympanic 29091 010 73384 4 150.00 mg/dL 23345 010 02525 0 150.00 mg/dL 77381 011 53345 9 98.60 Tympanic 24378 011 37532 1 67.00 mm[Hg] - Sitting 144.00 mm[Hg] - Sitting 98.20 Tympanic 98.00 % 61.00/ min 18.00/min 80931 011 72735 7 290.00 mg/dL 90937 011 72366 2 290.00 mg/dL 68796 011 73347 2 290.00 mg/dL 77924 011 97721 7 54.00 mm[Hg] - Sitting 136.00 mm[Hg] - Sitting 101.00 /min 49381 011 10698 7 98.60 Tympanic 98159 011 73781 5 240.00 mg/dL 79667 011 20661 1 240.00 mg/dL 33448 011 80081 1 156.00 mg/dL 03432 011 89300 9 156.00 mg/dL 88804 011 14841 0 97.80 Tympanic 60514 011 17247 8 343.00 mg/dL 12499 012 03486 9 97.90 Tympanic 06004 012 15405 2 466.00 mg/dL 48569 012 26696 1 466.00 mg/dL 70805 012 33360 3 466.00 mg/dL 63401 012 11020 8 97.90 Tympanic 96607 012 93579 8 56.00 mm[Hg] - Sitting 96.00 mm[Hg] - Sitting 61.00/ min 10360 012 40881 7 350.00 mg/dL 22225 012 37564 5 350.00 mg/dL 25127 012 86186 6 111.00 mg/dL 33166 012 96216 0 111.00 mg/dL 44499 012 85491 5 98.40 Tympanic 01201 012 53932 6 114.00 mg/dL 96439 013 94616 4 74.00 mm[Hg] - Sitting 112.00 mm[Hg] - Sitting 98.40 Tympanic 70.00/ min 18.00/min 84487 013 92759 8 244.00 mg/dL 43106 013 59778 7 244.00 mg/dL 79746 013 17511 1 244.00 mg/dL 98760 013 31363 1 98.20 Tympanic 87864 013 62320 7 72.00 mm[Hg] - Sitting 119.00 mm[Hg] - Sitting 76.00/ min 82883 013 06949 7 253.00 mg/dL 11982 013 41593 4 253.00 mg/dL 54293 013 82873 9 156.00 mg/dL 75368 013 80630 5 156.00 mg/dL 04505 013 85036 4 97.90 Tympanic 54119 013 16022 5 189.00 mg/dL 67477 014 12874 9 98.10 Tympanic 46549 014 75223 3 169.00 mg/dL 014 88184 3 98.10 Tympanic 014 65702 3 75.00 mm[Hg] - Sitting 121.00 mm[Hg] - Sitting 71.00/ min 014 44609 9 221.00 mg/dL Immunizations Vaccine Date Status COVID-19 09/20/2023 Completed Other 10/08/2023 Completed Shingles 05/27/2011 Completed Tetanus 04/13/2022 Completed TDaP 04/13/2022 Completed Shingles 2 10/05/2018 Completed
--- OUTSIDE RECORDS SUMMARY | 2024-10-03 11:14 | External Medical Summary | Continuity Of Care Document ---
Author Name Unknown Address [address] [address] Organization [facility] () Care Team Providers Care Aligning Checker Name Role Phone DO Machado Amy Primary Care Provider [phone] Allergies Allergy Reaction Start Date End Date [...] 3 0.1 mL 08/29 Inactiv e 2023 60560 19179 0 1 time Intrad ermal False Tubersol 5 tub. unit/0.1 mL intradermal injection solution [Tuberculin PPD] 0.1mL Intradermal 1 time For PPD 2nd Step Give 2nd Step PPD Day 1 and Read results Day 3 (schedule 7 days after 1st READ) 0.1mL 09/08 Active 2023 75356 44664 0 1 time Intrad ermal False Humalog [...] order For Diabetes 08/25 Inactiv e 2023 11521 85365 9 4 times a day Subcut aneous False Aspirin 325 mg tablet [generic] 325 By Mouth Twice daily For Anticoagulati on 325 09/25 Active 2023 93409 23803 1 Twice daily By Mouth False Ferrous sulfate 325 mg (65 mg iron) tablet [generic] 325 By Mouth Once daily For anemia 325 2023 Active 2023 58301 20547 5 Once daily By Mouth False Linezolid 600 mg tablet [generic] 600 mg By Mouth Every 12 hours For MRSA INFECTION L BKA 600 mg 08/25 Inactiv e 2023 84659 27522 1 Every 12 hours By Mouth False Cefpodoxime 200 mg tablet [generic] 400 mg By Mouth Twice daily For MRSA INFECTION L BKA 400 mg 08/25 Inactiv e 2023 98703 01813 0 Twice daily By Mouth False Coenzyme Q10 100 mg tablet [generic] 100 mg By Mouth Once daily For SUPP 100 mg 2023 Active 2023 47902 70286 0 Once daily By Mouth False Levothyroxi ne 50 mcg tablet [generic] 50mcg By Mouth Once daily For hypothyroidis m 50mcg 2023 Active 2023 15521 17729 0 Once daily By Mouth False One A Day Men Complete 240 mcg-25 mcg-300 mcg tablet 1 tab By Mouth Once daily For supplement 1 tab 2023 Active 2023 74679 43252 1 Once daily By Mouth False Cholecalcif adalberto (vitamin D3) 50 mcg (2,000 unit) tablet [generic] 1 TAB By Mouth Once daily For SUPP 1 TAB 2023 Active 2023 07790 56728 1 Once daily By Mouth False Cetirizine 10 mg tablet [generic] 1 TAB By Mouth At bedtime For Allergies 1 TAB 2023 Active 2023 52499 66467 0 At bedtime By Mouth False Timolol maleate 0.25 % eye drops [generic] 1 drop Both Eyes Twice daily For glaucoma 1 drop 2023 0000 /0000 Active 2023 03850 57109 5 Twice daily Both Eyes False Alendronate 35 mg tablet [generic] 35mg By Mouth Every week For SIADH 35mg 08/31 Inactiv e 2023 71926 48777 5 Every week By Mouth False Lantus Solostar U-100 Insulin 100 unit/mL (3 mL) subcutaneou s pen 18 units Subcutaneous Every morning For DIABETES 18 units 08/25 Inactiv e 2023 89468 10920 0 Every morning Subcut aneous False Lantus Solostar U-100 Insulin 100 unit/mL (3 mL) subcutaneou s pen 18 units Subcutaneous Every morning For DIABETES 18 units 2023 Active 2023 28908 13676 0 Every morning Subcut aneous False Linezolid 600 mg tablet [generic] 600 mg By Mouth Every 12 hours For MRSA INFECTION L BKA 600 mg 08/28 Inactiv e 2023 18542 28799 1 Every 12 hours By Mouth False [...] order For Diabetes 08/31 Inactiv e 2023 40280 14234 9 4 times a day Subcut aneous False Cefpodoxime 200 mg tablet [generic] 400 mg By Mouth Twice daily For MRSA INFECTION L BKA 400 mg 08/28 Inactiv e 2023 55873 73015 0 Twice daily By Mouth False Brimonidine 0.1 % eye drops [generic] 1 drop Both Eyes Twice daily For glaucoma 1 drop 2023 Active 2023 13737 51116 0 Twice daily Both Eyes False Metoprolol succinate ER 50 mg tablet,exte nded release 24 hr [generic] 50 mg By Mouth Once daily HOLD FOR SBP <100, or pulse <60 For HTN 50 mg 2023 Active 2023 99971 06064 1 Once daily By Mouth False Amlodipine 2.5 mg tablet [generic] 2.5 mg By Mouth Once daily For HTN 2.5 mg 2023 Active 2023 37739 42595 5 Once daily By Mouth False Docusate sodium 100 mg capsule [generic] 100mg By Mouth Twice daily as needed For constipation HOLD FOR LOOSE STOOLS 100mg 2023 Active 2023 64102 43364 1 Twice daily as needed By Mouth False Atorvastati n 40 mg tablet [generic] 40mg By Mouth Once daily For HDL 40mg 08/26 Inactiv e 2023 26335 06929 5 Once daily By Mouth False Tylenol 325 mg tablet 2 tabs By Mouth Every 4 hours as needed For Pain DO NOT EXCEED 3000 MG APAP/24 Hours 2 tabs 2023 Active 2023 91541 42545 0 Every 4 hours as needed By Mouth False Tylenol 325 mg tablet 2 tabs By Mouth Every 4 hours as needed For Fever >100 DO NOT EXCEED 3000 MG APAP/24 Hours 2 tabs 2023 Active 2023 22940 72352 0 Every 4 hours as needed By Mouth False Dulcolax (bisacodyl) 10 mg rectal suppository One Suppository per rectum PRN if Milk of Magnisia ineffective. Give on day 5 of no BM 1 sup 2023 Active 2023 33360 86317 1 Daily as needed Rectal False Fleet Enema 19 gram-7 gram/118 mL Administer per rectum PRN one time if dulcolax suppository not effective. Give on day 6 of no BM 1 2023 Active 2023 34719 10440 6 Daily as needed Rectal False Dextrose 50 % in water (D50W) intravenous solution [generic] Dextrose 50% evonne 20-50 ml (slow push) Intravenous if Glucagon not effective after 15 minutes. CALL 911 for ED Evaluation. 50% evonne 2023 Active 2023 26470 05311 9 Intrav enous False Glucagon (HCl) Emergency Kit 1 mg solution for injection Administer Glucagon 1 mg Intramuscular if 15 minutes after GLucose Gel is administered Glucose remains less than 70 1 mg 2023 Active 2023 85671 84568 2 Intram uscula r False Glucose Gel 40 % oral gel [Dextrose] PRN If resident is unable to swallow (with or without symptoms) and Glucose results less than 70 give GLucose 40% Gel 1 tube orally - Recheck Glucose 15 minutes after administratio n. 1 tube 2023 Active 2023 32478 35740 8 By Mouth False Milk of Magnesia 400 mg/5 mL oral suspension [Magnesium hydroxide] PRN 30ml By Mouth Daily as needed for constipation one time daily if no BM, on day 4 of no BM (PRN refer to instructions) For Constipation 30 mL 2023 Active 2023 38071 83397 6 Daily as needed By Mouth False Atorvastati n 40 mg tablet [generic] 08/26 Inactiv e 2023 87323 50915 5 Atorvastati n 40 mg tablet [generic] 40mg By Mouth Once daily For HDL 40mg 2023 Active 2023 14483 77333 5 Once daily By Mouth False Insulin aspart (U-100) 100 unit/mL (3 mL) subcutaneou s pen [generic] 15 units Subcutaneous 1 time For dm 15 units 08/26 Inactiv e 2023 60900 24614 5 1 time Subcut aneous False Humalog KwikPen (U-100) Insulin 100 unit/mL subcutaneou s 15 units Subcutaneous 1 time For dm 15 units 08/27 Inactiv e 2023 52234 64591 9 1 time Subcut aneous False Linezolid 600 mg tablet [generic] 600 mg By Mouth Every 12 hours For MRSA INFECTION L BKA 600 mg 09/06 Active 2023 22196 09979 1 Every 12 hours By Mouth False Cefpodoxime 200 mg tablet [generic] 400 mg By Mouth Twice daily For MRSA INFECTION L BKA 400 mg 08/31 Inactiv e 2023 16010 07271 0 Twice daily By Mouth False Senna 8.6 mg tablet 8.6 mg By Mouth Once daily For Constipation 8.6 mg 2023 Active 2023 84035 58006 1 Once daily By Mouth False Humalog [...] abnormalities . Per Carb 2023 Active 2023 61339 01348 9 4 times a day Subcut aneous False Alendronate 35 mg tablet [generic] 08/31 Inactiv e 2023 36697 73876 5 Alendronate 35 mg tablet [generic] 35mg By Mouth Every week For Osteoporosis 35mg 2023 Active 2023 49681 35431 5 Every week By Mouth False ProSource 10 gram-100 kcal/30 mL oral liquid 30 ml By Mouth Once daily For wound healing 30 ml 2023 Active 2023 04458 92313 2 Once daily By Mouth False Humalog KwikPen (U-100) Insulin 100 unit/mL subcutaneou s 08/31 Inactiv e 2023 64761 96458 9 MediHoney HCS 4 1/2in X 4 1/2in bandage Cleanse area with NSS, apply one medihoney hydrocolloid dressing, non adherent dressing, kerlix secure with paper tape daily. For wound stage III 1 2023 Active 2023 88335 34034 1 Once daily Topica l False Problems Code Description Start Date End Date Status D64.9 Anemia, unspecified 08/25/2024 Activ e I25.10 Atherosclerotic hear t disease of [place] coronary artery without angina pectoris 08/25/2024 Active [...] weight Temperature SpO2 Blood Sugar Pulse Respirations 34457 8 67.00 mm[Hg] - Sitting 145.00 mm[Hg] - Sitting 98.50 Forehead Scan 96.00 % 81.00/ min 16.00/min 22605 004 29593 2 67.00 mm[Hg] - Sitting 145.00 mm[Hg] - Sitting 98.50 Tympanic 81.00/ min 16.00/min 04081 004 73226 5 56.00 mm[Hg] - Sitting 142.00 mm[Hg] - Sitting 136.40 NI 100.20 Tympanic 96.00 % 92.00/ min 18.00/min 02200 004 18393 6 61547 004 04234 4 143.00 mg/dL 004 47692 0 97.80 Tympanic 51548 005 86035 7 60.00 mm[Hg] - Sitting 140.00 mm[Hg] - Sitting 98.00 Tympanic 84.00/ min 18.00/min 31292 005 81363 0 63.00 mm[Hg] - Sitting 141.00 mm[Hg] - Sitting 98.20 Tympanic 92.00 % 63.00/ min 16.00/min 32489 005 01019 8 69.00 mm[Hg] - Sitting 106.00 mm[Hg] - Sitting 97.20 Tympanic 69555 005 70229 7 69.00/ min 16.00/min 51280 005 30889 3 69.00 mm[Hg] - Sitting 106.00 mm[Hg] - Sitting 98.20 Tympanic 69.00/ min 16.00/min 45688 005 64604 1 367.00 mg/dL 21917 005 88298 2 97.20 Tympanic 52027 005 57211 4 97.20 Tympanic 29958 005 30761 0 69.00 mm[Hg] - Sitting 106.00 mm[Hg] - Sitting 69.00/ min 97790 005 34827 3 452.00 mg/dL 55661 005 65701 3 452.00 mg/dL 41418 005 34143 5 352.00 mg/dL 56006 005 65231 3 352.00 mg/dL 36654 005 21093 7 98.20 Tympanic 83884 005 74457 3 101.00 mg/dL 51037 005 8 101.00 mg/dL 55252 006 66802 4 66.00 mm[Hg] - Sitting 107.00 mm[Hg] - Sitting 98.00 Tympanic 66.00/ min 18.00/min 06981 006 76226 0 62.00 mm[Hg] - Sitting 162.00 mm[Hg] - Sitting 98.20 Tympanic 96.00 % 60.00/ min 16.00/min 72640 006 66847 4 62.00 mm[Hg] - Sitting 162.00 mm[Hg] - Sitting 98.00 Tympanic 70.00/ min 18.00/min 92324 006 59194 8 62.00 mm[Hg] - Sitting 162.00 mm[Hg] - Sitting 98.20 Tympanic 70.00/ min 18.00/min 93046 006 03790 2 66.00 mm[Hg] - Sitting 132.00 mm[Hg] - Sitting 98.60 Tympanic 74.00/ min 16.00/min 34643 006 16062 5 159.00 mg/dL 66630 006 28635 1 159.00 mg/dL 27935 006 75619 8 98.00 Tympanic 68089 006 63764 2 62.00 mm[Hg] - Sitting 162.00 mm[Hg] - Sitting 70.00/ min 83204 006 17945 7 264.00 mg/dL 89559 006 28633 7 264.00 mg/dL 53590 006 87068 4 196.00 mg/dL 75389 006 97697 3 98.20 Tympanic 57874 006 36582 6 271.00 mg/dL 08880 007 12354 3 97.20 Tympanic 24358 007 63463 2 63.00 mm[Hg] - Sitting 132.00 mm[Hg] - Sitting 98.50 Tympanic 94.00 % 66.00/ min 16.00/min 58103 007 86876 5 188.00 mg/dL 11622 007 97939 2 188.00 mg/dL 07802 007 89062 2 188.00 mg/dL 76933 007 10841 7 97.20 Tympanic 35368 007 46483 6 97.20 Tympanic 94132 007 35989 5 67.00 mm[Hg] - Sitting 152.00 mm[Hg] - Sitting 68.00/ min 12789 007 04686 0 141.00 mg/dL 51437 007 66645 3 141.00 mg/dL 49827 007 09876 1 366.00 mg/dL 94288 007 70084 7 366.00 mg/dL 17966 007 05848 7 98.00 Tympanic 95346 007 01209 6 324.00 mg/dL 91538 007 20203 3 98.00 Tympanic 42466 007 97620 7 324.00 mg/dL 58643 008 11944 0 98.00 Tympanic 25261 008 62220 2 97.90 Tympanic 46555 008 98458 0 98.20 Tympanic 02175 008 49706 0 73.00 mm[Hg] - Sitting 156.00 mm[Hg] - Sitting 98.60 Tympanic 99.00 % 66.00/ min 20.00/min 73949 008 83766 5 137.00 mg/dL 91567 008 48967 7 137.00 mg/dL 40998 008 60253 2 97.90 Tympanic 09075 008 71437 1 137.00 mg/dL 22001 008 24566 8 97.90 Tympanic 53476 008 07405 5 67.00 mm[Hg] - Sitting 124.00 /min 05419 008 55834 6 212.00 mg/dL 64461 008 88289 6 212.00 mg/dL 00648 008 41082 9 317.00 mg/dL 30273 008 13184 4 317.00 mg/dL 66380 008 91436 8 252.00 mg/dL 14636 008 34218 0 98.70 Tympanic 37769 008 68894 7 252.00 mg/dL 12224 008 32408 3 98.70 Tympanic 21677 009 13163 9 98.70 Tympanic 43790 009 74798 3 98.20 Tympanic 16124 009 24490 5 98.40 Tympanic 71390 009 76942 5 57.00 mm[Hg] - Sitting 129.00 mm[Hg] - Sitting 98.30 Tympanic 97.00 % 65.00/ min 18.00/min 02611 009 54715 1 255.00 mg/dL 42135 009 69746 4 255.00 mg/dL 17015 009 76447 5 98.20 Tympanic 20734 009 38864 0 255.00 mg/dL 45333 009 10933 0 98.20 Tympanic 04864 009 24932 4 63.00 mm[Hg] - Lying Down 102.00 mm[Hg] - Lying Down 58.00/ min 81175 009 80424 0 167.00 mg/dL 42142 009 23064 1 167.00 mg/dL 92260 009 84013 2 164.00 mg/dL 88593 009 38630 1 164.00 mg/dL 42145 009 82241 5 208.00 mg/dL 02701 010 69838 3 98.40 Tympanic 74563 010 73832 5 98.40 Tympanic 17720 010 07222 7 66 [place] [address]33 010 22865 4 60.00 mm[Hg] - Sitting 143.00 mm[Hg] - Sitting 98.90 Tympanic 98.00 % 67.00/ min 18.00/min 87048 010 23409 2 214.00 mg/dL 84337 010 62479 0 214.00 mg/dL 36322 010 62449 7 214.00 mg/dL 17991 010 43068 6 64.00 mm[Hg] - Sitting 110.00 mm[Hg] - Sitting 72.00/ min 87873 010 56464 7 98.40 Tympanic 09250 010 62841 1 212.00 mg/dL 21928 010 63434 2 212.00 mg/dL 80622 010 32611 1 115.00 mg/dL 34013 010 79693 0 115.00 mg/dL 52364 010 13878 4 98.50 Tympanic 83029 010 48051 4 150.00 mg/dL 90476 010 30727 0 150.00 mg/dL 22538 011 12284 9 98.60 Tympanic 48033 011 56888 1 67.00 mm[Hg] - Sitting 144.00 mm[Hg] - Sitting 98.20 Tympanic 98.00 % 61.00/ min 18.00/min 96205 011 34332 7 290.00 mg/dL 62036 011 76736 2 290.00 mg/dL 05043 011 90510 2 290.00 mg/dL 06023 011 13904 7 54.00 mm[Hg] - Sitting 136.00 mm[Hg] - Sitting 101.00 /min 78100 011 17867 7 98.60 Tympanic 02431 011 22173 5 240.00 mg/dL 81985 011 28219 1 240.00 mg/dL 78713 011 15149 1 156.00 mg/dL 22774 011 90109 9 156.00 mg/dL 18182 011 65802 0 97.80 Tympanic 19791 011 31993 8 343.00 mg/dL 06653 012 82846 9 97.90 Tympanic 22052 012 98693 2 466.00 mg/dL 95117 012 53777 1 466.00 mg/dL 48410 012 19447 3 466.00 mg/dL 75153 012 52452 8 97.90 Tympanic 49436 012 77644 8 56.00 mm[Hg] - Sitting 96.00 mm[Hg] - Sitting 61.00/ min 67463 012 56679 7 350.00 mg/dL 78688 012 97428 5 350.00 mg/dL 04948 012 80486 6 111.00 mg/dL 12134 012 84644 0 111.00 mg/dL 28124 012 36633 5 98.40 Tympanic 08319 012 12589 6 114.00 mg/dL 52503 013 72608 4 74.00 mm[Hg] - Sitting 112.00 mm[Hg] - Sitting 98.40 Tympanic 70.00/ min 18.00/min 60360 013 65979 8 244.00 mg/dL 68845 013 92968 7 244.00 mg/dL 43833 013 46803 1 244.00 mg/dL 77704 013 92223 1 98.20 Tympanic 16538 013 34610 7 72.00 mm[Hg] - Sitting 119.00 mm[Hg] - Sitting 76.00/ min 45185 013 59111 7 253.00 mg/dL 09243 013 20165 4 253.00 mg/dL 52005 013 16342 9 156.00 mg/dL 55481 013 30895 5 156.00 mg/dL 44285 013 48084 4 97.90 Tympanic Immunizations Vaccine Date Status COVID-19 09/20/2023 Completed Other 10/08/2023 Completed Shingles 05/27/2011 Completed Tetanus 04/13/2022 Completed TDaP 04/13/2022 Completed Shingles 2 10/05/2018 Completed
--- OUTSIDE RECORDS SUMMARY | 2024-10-03 11:15 | External Medical Summary | Continuity Of Care Document ---
Author Name Unknown Address [address] [id number] Organization [facility] () Care Team Providers Care Gold And Silver Assayer Name Role Phone DO Machado Amy Primary Care Provider [phone] Allergies Allergy Reaction Start Date End Date [...] 3 0.1 mL 08/29 Inactiv e 2023 91962 60473 0 1 time Intrad ermal False Tubersol 5 tub. unit/0.1 mL intradermal injection solution [Tuberculin PPD] 0.1mL Intradermal 1 time For PPD 2nd Step Give 2nd Step PPD Day 1 and Read results Day 3 (schedule 7 days after 1st READ) 0.1mL 09/08 Active 2023 74422 37628 0 1 time Intrad ermal False Humalog [...] order For Diabetes 08/25 Inactiv e 2023 10764 76939 9 4 times a day Subcut aneous False Aspirin 325 mg tablet [generic] 325 By Mouth Twice daily For Anticoagulati on 325 09/25 Active 2023 08552 39163 1 Twice daily By Mouth False Ferrous sulfate 325 mg (65 mg iron) tablet [generic] 325 By Mouth Once daily For anemia 325 2023 Active 2023 16310 32626 5 Once daily By Mouth False Linezolid 600 mg tablet [generic] 600 mg By Mouth Every 12 hours For MRSA INFECTION L BKA 600 mg 08/25 Inactiv e 2023 98800 57987 1 Every 12 hours By Mouth False Cefpodoxime 200 mg tablet [generic] 400 mg By Mouth Twice daily For MRSA INFECTION L BKA 400 mg 08/25 Inactiv e 2023 22673 74653 0 Twice daily By Mouth False Coenzyme Q10 100 mg tablet [generic] 100 mg By Mouth Once daily For SUPP 100 mg 2023 Active 2023 02886 54555 0 Once daily By Mouth False Levothyroxi ne 50 mcg tablet [generic] 50mcg By Mouth Once daily For hypothyroidis m 50mcg 2023 Active 2023 86637 69503 0 Once daily By Mouth False One A Day Men Complete 240 mcg-25 mcg-300 mcg tablet 1 tab By Mouth Once daily For supplement 1 tab 2023 Active 2023 68096 46068 1 Once daily By Mouth False Cholecalcif adalberto (vitamin D3) 50 mcg (2,000 unit) tablet [generic] 1 TAB By Mouth Once daily For SUPP 1 TAB 2023 Active 2023 03368 61928 1 Once daily By Mouth False Cetirizine 10 mg tablet [generic] 1 TAB By Mouth At bedtime For Allergies 1 TAB 2023 Active 2023 29490 26767 0 At bedtime By Mouth False Timolol maleate 0.25 % eye drops [generic] 1 drop Both Eyes Twice daily For glaucoma 1 drop 2023 0000 /0000 Active 2023 75405 14123 5 Twice daily Both Eyes False Alendronate 35 mg tablet [generic] 35mg By Mouth Every week For SIADH 35mg 08/31 Inactiv e 2023 42221 51634 5 Every week By Mouth False Lantus Solostar U-100 Insulin 100 unit/mL (3 mL) subcutaneou s pen 18 units Subcutaneous Every morning For DIABETES 18 units 08/25 Inactiv e 2023 71260 14227 0 Every morning Subcut aneous False Lantus Solostar U-100 Insulin 100 unit/mL (3 mL) subcutaneou s pen 18 units Subcutaneous Every morning For DIABETES 18 units 2023 Active 2023 74565 80030 0 Every morning Subcut aneous False Linezolid 600 mg tablet [generic] 600 mg By Mouth Every 12 hours For MRSA INFECTION L BKA 600 mg 08/28 Inactiv e 2023 52370 49705 1 Every 12 hours By Mouth False [...] order For Diabetes 08/31 Inactiv e 2023 54610 85344 9 4 times a day Subcut aneous False Cefpodoxime 200 mg tablet [generic] 400 mg By Mouth Twice daily For MRSA INFECTION L BKA 400 mg 08/28 Inactiv e 2023 25190 19314 0 Twice daily By Mouth False Brimonidine 0.1 % eye drops [generic] 1 drop Both Eyes Twice daily For glaucoma 1 drop 2023 Active 2023 84871 73038 0 Twice daily Both Eyes False Metoprolol succinate ER 50 mg tablet,exte nded release 24 hr [generic] 50 mg By Mouth Once daily HOLD FOR SBP <100, or pulse <60 For HTN 50 mg 2023 Active 2023 16360 27033 1 Once daily By Mouth False Amlodipine 2.5 mg tablet [generic] 2.5 mg By Mouth Once daily For HTN 2.5 mg 2023 Active 2023 93578 10035 5 Once daily By Mouth False Docusate sodium 100 mg capsule [generic] 100mg By Mouth Twice daily as needed For constipation HOLD FOR LOOSE STOOLS 100mg 2023 Active 2023 00193 13178 1 Twice daily as needed By Mouth False Atorvastati n 40 mg tablet [generic] 40mg By Mouth Once daily For HDL 40mg 08/26 Inactiv e 2023 90662 49114 5 Once daily By Mouth False Tylenol 325 mg tablet 2 tabs By Mouth Every 4 hours as needed For Pain DO NOT EXCEED 3000 MG APAP/24 Hours 2 tabs 2023 Active 2023 88428 76164 0 Every 4 hours as needed By Mouth False Tylenol 325 mg tablet 2 tabs By Mouth Every 4 hours as needed For Fever >100 DO NOT EXCEED 3000 MG APAP/24 Hours 2 tabs 2023 Active 2023 17817 69174 0 Every 4 hours as needed By Mouth False Dulcolax (bisacodyl) 10 mg rectal suppository One Suppository per rectum PRN if Milk of Magnisia ineffective. Give on day 5 of no BM 1 sup 2023 Active 2023 35411 14111 1 Daily as needed Rectal False Fleet Enema 19 gram-7 gram/118 mL Administer per rectum PRN one time if dulcolax suppository not effective. Give on day 6 of no BM 1 2023 Active 2023 73846 92346 6 Daily as needed Rectal False Dextrose 50 % in water (D50W) intravenous solution [generic] Dextrose 50% evonne 20-50 ml (slow push) Intravenous if Glucagon not effective after 15 minutes. CALL 911 for ED Evaluation. 50% evonne 2023 Active 2023 24360 73793 9 Intrav enous False Glucagon (HCl) Emergency Kit 1 mg solution for injection Administer Glucagon 1 mg Intramuscular if 15 minutes after GLucose Gel is administered Glucose remains less than 70 1 mg 2023 Active 2023 67877 23754 2 Intram uscula r False Glucose Gel 40 % oral gel [Dextrose] PRN If resident is unable to swallow (with or without symptoms) and Glucose results less than 70 give GLucose 40% Gel 1 tube orally - Recheck Glucose 15 minutes after administratio n. 1 tube 2023 Active 2023 40152 99903 8 By Mouth False Milk of Magnesia 400 mg/5 mL oral suspension [Magnesium hydroxide] PRN 30ml By Mouth Daily as needed for constipation one time daily if no BM, on day 4 of no BM (PRN refer to instructions) For Constipation 30 mL 2023 Active 2023 48706 50429 6 Daily as needed By Mouth False Atorvastati n 40 mg tablet [generic] 08/26 Inactiv e 2023 73558 48886 5 Atorvastati n 40 mg tablet [generic] 40mg By Mouth Once daily For HDL 40mg 2023 Active 2023 39311 78608 5 Once daily By Mouth False Insulin aspart (U-100) 100 unit/mL (3 mL) subcutaneou s pen [generic] 15 units Subcutaneous 1 time For dm 15 units 08/26 Inactiv e 2023 20009 72855 5 1 time Subcut aneous False Humalog KwikPen (U-100) Insulin 100 unit/mL subcutaneou s 15 units Subcutaneous 1 time For dm 15 units 08/27 Inactiv e 2023 45129 75474 9 1 time Subcut aneous False Linezolid 600 mg tablet [generic] 600 mg By Mouth Every 12 hours For MRSA INFECTION L BKA 600 mg 09/06 Active 2023 16710 38493 1 Every 12 hours By Mouth False Cefpodoxime 200 mg tablet [generic] 400 mg By Mouth Twice daily For MRSA INFECTION L BKA 400 mg 08/31 Inactiv e 2023 03070 73424 0 Twice daily By Mouth False Senna 8.6 mg tablet 8.6 mg By Mouth Once daily For Constipation 8.6 mg 2023 Active 2023 18431 93303 1 Once daily By Mouth False Humalog [...] abnormalities . Per Carb 2023 Active 2023 72186 07845 9 4 times a day Subcut aneous False Alendronate 35 mg tablet [generic] 08/31 Inactiv e 2023 51418 30079 5 Alendronate 35 mg tablet [generic] 35mg By Mouth Every week For Osteoporosis 35mg 202300 Active 2023 88371 73969 5 Every week By Mouth False Humalog KwikPen (U-100) Insulin 100 unit/mL subcutaneou s 08/31 Inactiv e 2023 54115 18533 9 MediHoney HCS 4 1/2in X 4 1/2in bandage Cleanse area with NSS, apply one medihoney hydrocolloid dressing, non adherent dressing, kerlix secure with paper tape daily. For wound stage III 1 2023 Active 2023 16995 18194 1 Once daily Juanya l False Problems Code Description Start Date End Date Status D64.9 Anemia, unspecified 08/25/2024 Activ e I25.10 Atherosclerotic hear t disease of [place] coronary artery without angina pectoris 08/25/2024 Active [...] weight Temperature SpO2 Blood Sugar Pulse Respirations 58606 004 80496 8 67.00 mm[Hg] - Sitting 145.00 mm[Hg] - Sitting 98.50 Forehead Scan 96.00 % 81.00/ min 16.00/min 66759 004 57447 2 67.00 mm[Hg] - Sitting 145.00 mm[Hg] - Sitting 98.50 Tympanic 81.00/ min 16.00/min 44663 004 38961 5 56.00 mm[Hg] - Sitting 142.00 mm[Hg] - Sitting 136.40 NI 100.20 Tympanic 96.00 % 92.00/ min 18.00/min 96851 004 35110 6 83543 004 82014 4 143.00 mg/dL 91512 004 97985 0 97.80 Tympanic 09796 005 09644 7 60.00 mm[Hg] - Sitting 140.00 mm[Hg] - Sitting 98.00 Tympanic 84.00/ min 18.00/min 84239 005 55839 0 63.00 mm[Hg] - Sitting 141.00 mm[Hg] - Sitting 98.20 Tympanic 92.00 % 63.00/ min 16.00/min 42027 005 65942 8 69.00 mm[Hg] - Sitting 106.00 mm[Hg] - Sitting 97.20 Tympanic 81176 005 30218 7 69.00/ min 16.00/min 86727 005 59943 3 69.00 mm[Hg] - Sitting 106.00 mm[Hg] - Sitting 98.20 Tympanic 69.00/ min 16.00/min 88604 005 32991 1 367.00 mg/dL 01204 005 17549 2 97.20 Tympanic 10675 005 48872 4 97.20 Tympanic 12956 005 39378 0 69.00 mm[Hg] - Sitting 106.00 mm[Hg] - Sitting 69.00/ min 45274 005 33516 3 452.00 mg/dL 54222 005 49440 3 452.00 mg/dL 00813 005 41941 5 352.00 mg/dL 46059 005 57766 3 352.00 mg/dL 59847 005 98418 7 98.20 Tympanic 77860 005 05785 3 101.00 mg/dL 23159 005 31076 8 101.00 mg/dL 95727 006 79338 4 66.00 mm[Hg] - Sitting 107.00 mm[Hg] - Sitting 98.00 Tympanic 66.00/ min 18.00/min 37219 006 85584 0 62.00 mm[Hg] - Sitting 162.00 mm[Hg] - Sitting 98.20 Tympanic 96.00 % 60.00/ min 16.00/min 23782 006 07394 4 62.00 mm[Hg] - Sitting 162.00 mm[Hg] - Sitting 98.00 Tympanic 70.00/ min 18.00/min 72929 006 51128 8 62.00 mm[Hg] - Sitting 162.00 mm[Hg] - Sitting 98.20 Tympanic 70.00/ min 18.00/min 63940 006 55158 2 66.00 mm[Hg] - Sitting 132.00 mm[Hg] - Sitting 98.60 Tympanic 74.00/ min 16.00/min 12844 006 64612 5 159.00 mg/dL 80685 006 39626 1 159.00 mg/dL 91314 006 21238 8 98.00 Tympanic 36939 006 69804 2 62.00 mm[Hg] - Sitting 162.00 mm[Hg] - Sitting 70.00/ min 48304 006 11389 7 264.00 mg/dL 28909 006 12479 7 264.00 mg/dL 64494 006 82676 4 196.00 mg/dL 07314 006 25446 3 98.20 Tympanic 15663 006 50100 6 271.00 mg/dL 05191 007 15946 3 97.20 Tympanic 35983 007 08203 2 63.00 mm[Hg] - Sitting 132.00 mm[Hg] - Sitting 98.50 Tympanic 94.00 % 66.00/ min 16.00/min 94420 007 68048 5 188.00 mg/dL 73105 007 07034 2 188.00 mg/dL 24555 007 29217 2 188.00 mg/dL 98532 007 17869 7 97.20 Tympanic 73146 007 25824 6 97.20 Tympanic 28923 007 98442 5 67.00 mm[Hg] - Sitting 152.00 mm[Hg] - Sitting 68.00/ min 40301 007 26979 0 141.00 mg/dL 44947 007 01790 3 141.00 mg/dL 69952 007 17702 1 366.00 mg/dL 37438 007 04849 7 366.00 mg/dL 48369 007 29872 7 98.00 Tympanic 94536 007 50221 6 324.00 mg/dL 02910 007 81296 3 98.00 Tympanic 11940 007 71282 7 324.00 mg/dL 50091 008 16267 0 98.00 Tympanic 94931 008 86377 2 97.90 Tympanic 59393 008 63082 0 98.20 Tympanic 84358 008 17308 0 73.00 mm[Hg] - Sitting 156.00 mm[Hg] - Sitting 98.60 Tympanic 99.00 % 66.00/ min 20.00/min 20193 008 48238 5 137.00 mg/dL 78651 008 45926 7 137.00 mg/dL 80425 008 86439 2 97.90 Tympanic 90738 008 87833 1 137.00 mg/dL 30122 008 12819 8 97.90 Tympanic 89242 008 03369 5 67.00 mm[Hg] - Sitting 124.00 /min 46966 008 56488 6 212.00 mg/dL 56011 008 71887 6 212.00 mg/dL 65729 008 81706 9 317.00 mg/dL 32047 008 92421 4 317.00 mg/dL 91786 008 77549 8 252.00 mg/dL 76839 008 77808 0 98.70 Tympanic 79403 008 93058 7 252.00 mg/dL 40785 008 32571 3 98.70 Tympanic 29285 009 75350 9 98.70 Tympanic 23724 009 66530 3 98.20 Tympanic 15164 009 04302 5 98.40 Tympanic 18929 009 89080 5 57.00 mm[Hg] - Sitting 129.00 mm[Hg] - Sitting 98.30 Tympanic 97.00 % 65.00/ min 18.00/min 55996 009 11127 1 255.00 mg/dL 08271 009 26993 4 255.00 mg/dL 75649 009 23285 5 98.20 Tympanic 61694 009 52551 0 255.00 mg/dL 81197 009 94413 0 98.20 Tympanic 05025 009 93221 4 63.00 mm[Hg] - Lying Down 102.00 mm[Hg] - Lying Down 58.00/ min 08824 009 59240 0 167.00 mg/dL 50709 009 50090 1 167.00 mg/dL 67311 009 94357 2 164.00 mg/dL 63373 009 51629 1 164.00 mg/dL 05183 009 05651 5 208.00 mg/dL 48430 010 64699 3 98.40 Tympanic 62972 010 12524 5 98.40 Tympanic 49090 010 53376 7 66 [place] 73657 010 98290 4 60.00 mm[Hg] - Sitting 143.00 mm[Hg] - Sitting 98.90 Tympanic 98.00 % 67.00/ min 18.00/min 21906 010 55505 2 214.00 mg/dL 71124 010 74772 0 214.00 mg/dL 04928 010 62131 7 214.00 mg/dL 41943 010 94764 6 64.00 mm[Hg] - Sitting 110.00 mm[Hg] - Sitting 72.00/ min 74447 010 59736 7 98.40 Tympanic 85889 010 53178 1 212.00 mg/dL 10472 010 66134 2 212.00 mg/dL 78309 010 95742 1 115.00 mg/dL 80675 010 10411 0 115.00 mg/dL 58496 010 74740 4 98.50 Tympanic 99133 010 56789 4 150.00 mg/dL 08400 010 16165 0 150.00 mg/dL Immunizations Vaccine Date Status COVID-19 09/20/2023 Completed Other 10/08/2023 Completed Shingles 05/27/2011 Completed Tetanus 04/13/2022 Completed TDaP 04/13/2022 Completed Shingles 2 10/05/2018 Completed
--- OUTSIDE RECORDS SUMMARY | 2024-10-03 11:15 | External Medical Summary | Continuity Of Care Document ---
Author Name Unknown Address [address] [facility] () Care Team Providers Care Brewmaster Name Role Phone DO Machado Amy Primary Care Provider [phone] Allergies Allergy Reaction Start Date End Date [...] 3 0.1 mL 08/29 Inactiv e 2023 39162 57224 0 1 time Intrad ermal False Tubersol 5 tub. unit/0.1 mL intradermal injection solution [Tuberculin PPD] 0.1mL Intradermal 1 time For PPD 2nd Step Give 2nd Step PPD Day 1 and Read results Day 3 (schedule 7 days after 1st READ) 0.1mL 09/08 Active 2023 99561 60325 0 1 time Intrad ermal False Humalog [...] order For Diabetes 08/25 Inactiv e 2023 04699 83184 9 4 times a day Subcut aneous False Aspirin 325 mg tablet [generic] 325 By Mouth Twice daily For Anticoagulati on 325 09/25 Active 2023 26878 88472 1 Twice daily By Mouth False Ferrous sulfate 325 mg (65 mg iron) tablet [generic] 325 By Mouth Once daily For anemia 325 2023 Active 2023 88234 11575 5 Once daily By Mouth False Linezolid 600 mg tablet [generic] 600 mg By Mouth Every 12 hours For MRSA INFECTION L BKA 600 mg 08/25 Inactiv e 2023 71262 88348 1 Every 12 hours By Mouth False Cefpodoxime 200 mg tablet [generic] 400 mg By Mouth Twice daily For MRSA INFECTION L BKA 400 mg 08/25 Inactiv e 2023 16703 65981 0 Twice daily By Mouth False Coenzyme Q10 100 mg tablet [generic] 100 mg By Mouth Once daily For SUPP 100 mg 2023 Active 2023 51202 62351 0 Once daily By Mouth False Levothyroxi ne 50 mcg tablet [generic] 50mcg By Mouth Once daily For hypothyroidis m 50mcg 2023 Active 2023 47855 31953 0 Once daily By Mouth False One A Day Men Complete 240 mcg-25 mcg-300 mcg tablet 1 tab By Mouth Once daily For supplement 1 tab 2023 Active 2023 20200 07143 1 Once daily By Mouth False Cholecalcif adalberto (vitamin D3) 50 mcg (2,000 unit) tablet [generic] 1 TAB By Mouth Once daily For SUPP 1 TAB 2023 Active 2023 64171 97631 1 Once daily By Mouth False Cetirizine 10 mg tablet [generic] 1 TAB By Mouth At bedtime For Allergies 1 TAB 2023 Active 2023 91923 69034 0 At bedtime By Mouth False Timolol maleate 0.25 % eye drops [generic] 1 drop Both Eyes Twice daily For glaucoma 1 drop 2023 0000 /0000 Active 2023 75870 90282 5 Twice daily Both Eyes False Alendronate 35 mg tablet [generic] 35mg By Mouth Every week For SIADH 35mg 08/31 Inactiv e 2023 68263 38141 5 Every week By Mouth False Lantus Solostar U-100 Insulin 100 unit/mL (3 mL) subcutaneou s pen 18 units Subcutaneous Every morning For DIABETES 18 units 08/25 Inactiv e 2023 64114 39910 0 Every morning Subcut aneous False Lantus Solostar U-100 Insulin 100 unit/mL (3 mL) subcutaneou s pen 18 units Subcutaneous Every morning For DIABETES 18 units 2023 Active 2023 60127 54089 0 Every morning Subcut aneous False Linezolid 600 mg tablet [generic] 600 mg By Mouth Every 12 hours For MRSA INFECTION L BKA 600 mg 08/28 Inactiv e 2023 22222 65112 1 Every 12 hours By Mouth False [...] order For Diabetes 08/31 Inactiv e 2023 84466 08992 9 4 times a day Subcut aneous False Cefpodoxime 200 mg tablet [generic] 400 mg By Mouth Twice daily For MRSA INFECTION L BKA 400 mg 08/28 Inactiv e 2023 11241 96410 0 Twice daily By Mouth False Brimonidine 0.1 % eye drops [generic] 1 drop Both Eyes Twice daily For glaucoma 1 drop 2023 Active 2023 44739 61072 0 Twice daily Both Eyes False Metoprolol succinate ER 50 mg tablet,exte nded release 24 hr [generic] 50 mg By Mouth Once daily HOLD FOR SBP <100, or pulse <60 For HTN 50 mg 2023 Active 2023 19032 07877 1 Once daily By Mouth False Amlodipine 2.5 mg tablet [generic] 2.5 mg By Mouth Once daily For HTN 2.5 mg 2023 Active 2023 89249 43733 5 Once daily By Mouth False Docusate sodium 100 mg capsule [generic] 100mg By Mouth Twice daily as needed For constipation HOLD FOR LOOSE STOOLS 100mg 2023 Active 2023 91260 69579 1 Twice daily as needed By Mouth False Atorvastati n 40 mg tablet [generic] 40mg By Mouth Once daily For HDL 40mg 08/26 Inactiv e 2023 40760 93308 5 Once daily By Mouth False Tylenol 325 mg tablet 2 tabs By Mouth Every 4 hours as needed For Pain DO NOT EXCEED 3000 MG APAP/24 Hours 2 tabs 2023 Active 2023 63946 06257 0 Every 4 hours as needed By Mouth False Tylenol 325 mg tablet 2 tabs By Mouth Every 4 hours as needed For Fever >100 DO NOT EXCEED 3000 MG APAP/24 Hours 2 tabs 2023 Active 2023 86492 77528 0 Every 4 hours as needed By Mouth False Dulcolax (bisacodyl) 10 mg rectal suppository One Suppository per rectum PRN if Milk of Magnisia ineffective. Give on day 5 of no BM 1 sup 2023 Active 2023 84748 78151 1 Daily as needed Rectal False Fleet Enema 19 gram-7 gram/118 mL Administer per rectum PRN one time if dulcolax suppository not effective. Give on day 6 of no BM 1 2023 Active 2023 34876 60557 6 Daily as needed Rectal False Dextrose 50 % in water (D50W) intravenous solution [generic] Dextrose 50% evonne 20-50 ml (slow push) Intravenous if Glucagon not effective after 15 minutes. CALL 911 for ED Evaluation. 50% evonne 2023 Active 2023 40890 46929 9 Intrav enous False Glucagon (HCl) Emergency Kit 1 mg solution for injection Administer Glucagon 1 mg Intramuscular if 15 minutes after GLucose Gel is administered Glucose remains less than 70 1 mg 2023 Active 2023 47086 53919 2 Intram uscula r False Glucose Gel 40 % oral gel [Dextrose] PRN If resident is unable to swallow (with or without symptoms) and Glucose results less than 70 give GLucose 40% Gel 1 tube orally - Recheck Glucose 15 minutes after administratio n. 1 tube 2023 Active 2023 83605 31579 8 By Mouth False Milk of Magnesia 400 mg/5 mL oral suspension [Magnesium hydroxide] PRN 30ml By Mouth Daily as needed for constipation one time daily if no BM, on day 4 of no BM (PRN refer to instructions) For Constipation 30 mL 2023 Active 2023 42036 82602 6 Daily as needed By Mouth False Atorvastati n 40 mg tablet [generic] 08/26 Inactiv e 2023 38120 66882 5 Atorvastati n 40 mg tablet [generic] 40mg By Mouth Once daily For HDL 40mg 2023 Active 2023 40153 70785 5 Once daily By Mouth False Insulin aspart (U-100) 100 unit/mL (3 mL) subcutaneou s pen [generic] 15 units Subcutaneous 1 time For dm 15 units 08/26 Inactiv e 2023 73726 48119 5 1 time Subcut aneous False Humalog KwikPen (U-100) Insulin 100 unit/mL subcutaneou s 15 units Subcutaneous 1 time For dm 15 units 08/27 Inactiv e 2023 27024 89890 9 1 time Subcut aneous False Linezolid 600 mg tablet [generic] 600 mg By Mouth Every 12 hours For MRSA INFECTION L BKA 600 mg 09/06 Active 2023 87355 06874 1 Every 12 hours By Mouth False Cefpodoxime 200 mg tablet [generic] 400 mg By Mouth Twice daily For MRSA INFECTION L BKA 400 mg 08/31 Inactiv e 2023 62141 00821 0 Twice daily By Mouth False Senna 8.6 mg tablet 8.6 mg By Mouth Once daily For Constipation 8.6 mg 2023 Active 2023 83260 67022 1 Once daily By Mouth False Humalog [...] abnormalities . Per Carb 2023 Active 2023 78290 06385 9 4 times a day Subcut aneous False Alendronate 35 mg tablet [generic] 08/31 Inactiv e 2023 77783 85136 5 Alendronate 35 mg tablet [generic] 35mg By Mouth Every week For Osteoporosis 35mg 2023 Active 2023 06918 40410 5 Every week By Mouth False ProSource 10 gram-100 kcal/30 mL oral liquid 30 ml By Mouth Once daily For wound healing 30 ml 2023 Active 2023 32738 88102 2 Once daily By Mouth False Humalog KwikPen (U-100) Insulin 100 unit/mL subcutaneou s 08/31 Inactiv e 2023 70806 69346 9 MediHoney HCS 4 1/2in X 4 1/2in bandage Cleanse area with NSS, apply one medihoney hydrocolloid dressing, non adherent dressing, kerlix secure with paper tape daily. For wound stage III 1 2023 Active 2023 34582 87476 1 Once daily Topica l False Problems Code Description Start Date End Date Status D64.9 Anemia, unspecified 08/25/2024 Activ e I25.10 Atherosclerotic hear t disease of [place] coronary artery without angina pectoris 08/25/2024 Active [...] weight Temperature SpO2 Blood Sugar Pulse Respirations 39840 8 67.00 mm[Hg] - Sitting 145.00 mm[Hg] - Sitting 98.50 Forehead Scan 96.00 % 81.00/ min 16.00/min 53012 004 51382 2 67.00 mm[Hg] - Sitting 145.00 mm[Hg] - Sitting 98.50 Tympanic 81.00/ min 16.00/min 88772 004 12918 5 56.00 mm[Hg] - Sitting 142.00 mm[Hg] - Sitting 136.40 NI 100.20 Tympanic 96.00 % 92.00/ min 18.00/min 42517 004 98225 6 17996 004 75456 4 143.00 mg/dL 004 95329 0 97.80 Tympanic 65805 005 72370 7 60.00 mm[Hg] - Sitting 140.00 mm[Hg] - Sitting 98.00 Tympanic 84.00/ min 18.00/min 68279 005 16722 0 63.00 mm[Hg] - Sitting 141.00 mm[Hg] - Sitting 98.20 Tympanic 92.00 % 63.00/ min 16.00/min 53414 005 45678 8 69.00 mm[Hg] - Sitting 106.00 mm[Hg] - Sitting 97.20 Tympanic 94043 005 02750 7 69.00/ min 16.00/min 76737 005 78298 3 69.00 mm[Hg] - Sitting 106.00 mm[Hg] - Sitting 98.20 Tympanic 69.00/ min 16.00/min 93666 005 44820 1 367.00 mg/dL 47004 005 29179 2 97.20 Tympanic 52337 005 39731 4 97.20 Tympanic 36941 005 78531 0 69.00 mm[Hg] - Sitting 106.00 mm[Hg] - Sitting 69.00/ min 61561 005 65787 3 452.00 mg/dL 25654 005 94711 3 452.00 mg/dL 84277 005 84346 5 352.00 mg/dL 46194 005 54639 3 352.00 mg/dL 60763 005 03334 7 98.20 Tympanic 83457 005 55679 3 101.00 mg/dL 57994 005 8 101.00 mg/dL 81641 006 39519 4 66.00 mm[Hg] - Sitting 107.00 mm[Hg] - Sitting 98.00 Tympanic 66.00/ min 18.00/min 49910 006 16767 0 62.00 mm[Hg] - Sitting 162.00 mm[Hg] - Sitting 98.20 Tympanic 96.00 % 60.00/ min 16.00/min 40502 006 32726 4 62.00 mm[Hg] - Sitting 162.00 mm[Hg] - Sitting 98.00 Tympanic 70.00/ min 18.00/min 16358 006 44832 8 62.00 mm[Hg] - Sitting 162.00 mm[Hg] - Sitting 98.20 Tympanic 70.00/ min 18.00/min 00325 006 48480 2 66.00 mm[Hg] - Sitting 132.00 mm[Hg] - Sitting 98.60 Tympanic 74.00/ min 16.00/min 37642 006 63360 5 159.00 mg/dL 34794 006 06357 1 159.00 mg/dL 07458 006 14351 8 98.00 Tympanic 23111 006 56088 2 62.00 mm[Hg] - Sitting 162.00 mm[Hg] - Sitting 70.00/ min 67279 006 76739 7 264.00 mg/dL 21702 006 25391 7 264.00 mg/dL 44334 006 21942 4 196.00 mg/dL 37077 006 80362 3 98.20 Tympanic 33830 006 14002 6 271.00 mg/dL 07363 007 97633 3 97.20 Tympanic 86746 007 68857 2 63.00 mm[Hg] - Sitting 132.00 mm[Hg] - Sitting 98.50 Tympanic 94.00 % 66.00/ min 16.00/min 06502 007 74021 5 188.00 mg/dL 83372 007 46712 2 188.00 mg/dL 37480 007 76734 2 188.00 mg/dL 97998 007 52367 7 97.20 Tympanic 99680 007 59396 6 97.20 Tympanic 38241 007 86535 5 67.00 mm[Hg] - Sitting 152.00 mm[Hg] - Sitting 68.00/ min 87921 007 66957 0 141.00 mg/dL 76494 007 17321 3 141.00 mg/dL 97004 007 16846 1 366.00 mg/dL 69655 007 98992 7 366.00 mg/dL 50375 007 17284 7 98.00 Tympanic 16547 007 19706 6 324.00 mg/dL 73377 007 46438 3 98.00 Tympanic 72616 007 96113 7 324.00 mg/dL 79647 008 38370 0 98.00 Tympanic 69188 008 14027 2 97.90 Tympanic 81726 008 67132 0 98.20 Tympanic 62109 008 87923 0 73.00 mm[Hg] - Sitting 156.00 mm[Hg] - Sitting 98.60 Tympanic 99.00 % 66.00/ min 20.00/min 57168 008 87000 5 137.00 mg/dL 18447 008 74768 7 137.00 mg/dL 32083 008 24116 2 97.90 Tympanic 89606 008 23416 1 137.00 mg/dL 27910 008 15243 8 97.90 Tympanic 15325 008 90927 5 67.00 mm[Hg] - Sitting 124.00 /min 45222 008 35638 6 212.00 mg/dL 98248 008 30162 6 212.00 mg/dL 40930 008 10006 9 317.00 mg/dL 81207 008 07933 4 317.00 mg/dL 21848 008 61500 8 252.00 mg/dL 52338 008 08824 0 98.70 Tympanic 47484 008 58809 7 252.00 mg/dL 14014 008 64029 3 98.70 Tympanic 63102 009 55549 9 98.70 Tympanic 68630 009 18103 3 98.20 Tympanic 15561 009 42875 5 98.40 Tympanic 59036 009 54396 5 57.00 mm[Hg] - Sitting 129.00 mm[Hg] - Sitting 98.30 Tympanic 97.00 % 65.00/ min 18.00/min 00666 009 62895 1 255.00 mg/dL 27784 009 43656 4 255.00 mg/dL 53559 009 70349 5 98.20 Tympanic 16518 009 88255 0 255.00 mg/dL 00058 009 91642 0 98.20 Tympanic 73835 009 45942 4 63.00 mm[Hg] - Lying Down 102.00 mm[Hg] - Lying Down 58.00/ min 26765 009 22120 0 167.00 mg/dL 70205 009 55044 1 167.00 mg/dL 64146 009 69291 2 164.00 mg/dL 70210 009 43504 1 164.00 mg/dL 19055 009 38659 5 208.00 mg/dL 37879 010 44587 3 98.40 Tympanic 77436 010 21652 5 98.40 Tympanic 68188 010 00790 7 66 [place] 79755 010 64184 4 60.00 mm[Hg] - Sitting 143.00 mm[Hg] - Sitting 98.90 Tympanic 98.00 % 67.00/ min 18.00/min 22001 010 09687 2 214.00 mg/dL 78493 010 98446 0 214.00 mg/dL 42096 010 81018 7 214.00 mg/dL 22166 010 05626 6 64.00 mm[Hg] - Sitting 110.00 mm[Hg] - Sitting 72.00/ min 25923 010 07338 7 98.40 Tympanic 69748 010 59084 1 212.00 mg/dL 17019 010 00439 2 212.00 mg/dL 85921 010 41223 1 115.00 mg/dL 65982 010 06329 0 115.00 mg/dL 37287 010 14467 4 98.50 Tympanic 41510 010 03541 4 150.00 mg/dL 93389 010 50835 0 150.00 mg/dL 81435 011 94053 9 98.60 Tympanic 08471 011 84401 1 67.00 mm[Hg] - Sitting 144.00 mm[Hg] - Sitting 98.20 Tympanic 98.00 % 61.00/ min 18.00/min 29377 011 79220 7 290.00 mg/dL 39738 011 47101 2 290.00 mg/dL 18449 011 39392 2 290.00 mg/dL 61471 011 08526 7 54.00 mm[Hg] - Sitting 136.00 mm[Hg] - Sitting 101.00 /min 89124 011 39529 7 98.60 Tympanic 01203 011 75984 5 240.00 mg/dL 84035 011 55444 1 240.00 mg/dL 32322 011 64956 1 156.00 mg/dL 67178 011 46527 9 156.00 mg/dL 44380 011 65929 0 97.80 Tympanic 90192 011 75681 8 343.00 mg/dL 75259 012 16361 2 466.00 mg/dL 97024 012 83959 1 466.00 mg/dL 89250 012 23913 3 466.00 mg/dL 83286 012 93028 8 97.90 Tympanic 71287 012 77129 8 56.00 mm[Hg] - Sitting 96.00 mm[Hg] - Sitting 61.00/ min 94520 012 99001 7 350.00 mg/dL 42392 012 54540 5 350.00 mg/dL Immunizations Vaccine Date Status COVID-19 09/20/2023 Completed Other 10/08/2023 Completed Shingles 05/27/2011 Completed Tetanus 04/13/2022 Completed TDaP 04/13/2022 Completed Shingles 2 10/05/2018 Completed
--- OUTSIDE RECORDS SUMMARY | 2024-10-03 11:15 | External Medical Summary | Continuity Of Care Document ---
Author Name Unknown Address [address] [address] Organization [facility] () Care Team Providers Care Take Down Sorter Name Role Phone DO Machado Amy Primary Care Provider [phone] Allergies Allergy Reaction Start Date End Date [...] 3 0.1 mL 08/29 Inactiv e 2023 38515 35549 0 1 time Intrad ermal False Tubersol 5 tub. unit/0.1 mL intradermal injection solution [Tuberculin PPD] 0.1mL Intradermal 1 time For PPD 2nd Step Give 2nd Step PPD Day 1 and Read results Day 3 (schedule 7 days after 1st READ) 0.1mL 09/08 Active 2023 50787 03483 0 1 time Intrad ermal False Humalog [...] order For Diabetes 08/25 Inactiv e 2023 29773 28838 9 4 times a day Subcut aneous False Aspirin 325 mg tablet [generic] 325 By Mouth Twice daily For Anticoagulati on 325 09/25 Active 2023 69087 29216 1 Twice daily By Mouth False Ferrous sulfate 325 mg (65 mg iron) tablet [generic] 325 By Mouth Once daily For anemia 325 2023 Active 2023 32247 76794 5 Once daily By Mouth False Linezolid 600 mg tablet [generic] 600 mg By Mouth Every 12 hours For MRSA INFECTION L BKA 600 mg 08/25 Inactiv e 2023 40219 89131 1 Every 12 hours By Mouth False Cefpodoxime 200 mg tablet [generic] 400 mg By Mouth Twice daily For MRSA INFECTION L BKA 400 mg 08/25 Inactiv e 2023 26318 60333 0 Twice daily By Mouth False Coenzyme Q10 100 mg tablet [generic] 100 mg By Mouth Once daily For SUPP 100 mg 2023 Active 2023 47955 10909 0 Once daily By Mouth False Levothyroxi ne 50 mcg tablet [generic] 50mcg By Mouth Once daily For hypothyroidis m 50mcg 2023 Active 2023 45500 60527 0 Once daily By Mouth False One A Day Men Complete 240 mcg-25 mcg-300 mcg tablet 1 tab By Mouth Once daily For supplement 1 tab 2023 Active 2023 92089 77840 1 Once daily By Mouth False Cholecalcif adalberto (vitamin D3) 50 mcg (2,000 unit) tablet [generic] 1 TAB By Mouth Once daily For SUPP 1 TAB 2023 Active 2023 96549 95017 1 Once daily By Mouth False Cetirizine 10 mg tablet [generic] 1 TAB By Mouth At bedtime For Allergies 1 TAB 2023 Active 2023 06680 10629 0 At bedtime By Mouth False Timolol maleate 0.25 % eye drops [generic] 1 drop Both Eyes Twice daily For glaucoma 1 drop 2023 Active 2023 90779 54766 5 Twice daily Both Eyes False Alendronate 35 mg tablet [generic] 35mg By Mouth Every week For SIADH 35mg 2023 Active 2023 52352 27388 5 Every week By Mouth False Lantus Solostar U-100 Insulin 100 unit/mL (3 mL) subcutaneou s pen 18 units Subcutaneous Every morning For DIABETES 18 units 08/25 Inactiv e 2023 37290 33244 0 Every morning Subcut aneous False Lantus Solostar U-100 Insulin 100 unit/mL (3 mL) subcutaneou s pen 18 units Subcutaneous Every morning For DIABETES 18 units 2023 Active 2023 83051 40531 0 Every morning Subcut aneous False Linezolid 600 mg tablet [generic] 600 mg By Mouth Every 12 hours For MRSA INFECTION L BKA 600 mg 08/28 Inactiv e 2023 94367 90982 1 Every 12 hours By Mouth False [...] order For Diabetes 08/31 Inactiv e 2023 21037 42609 9 4 times a day Subcut aneous False Cefpodoxime 200 mg tablet [generic] 400 mg By Mouth Twice daily For MRSA INFECTION L BKA 400 mg 08/28 Inactiv e 2023 72518 88109 0 Twice daily By Mouth False Brimonidine 0.1 % eye drops [generic] 1 drop Both Eyes Twice daily For glaucoma 1 drop 2023 Active 2023 80053 85005 0 Twice daily Both Eyes False Metoprolol succinate ER 50 mg tablet,exte nded release 24 hr [generic] 50 mg By Mouth Once daily HOLD FOR SBP <100, or pulse <60 For HTN 50 mg 2023 Active 2023 37826 00848 1 Once daily By Mouth False Amlodipine 2.5 mg tablet [generic] 2.5 mg By Mouth Once daily For HTN 2.5 mg 2023 Active 2023 24232 90066 5 Once daily By Mouth False Docusate sodium 100 mg capsule [generic] 100mg By Mouth Twice daily as needed For constipation HOLD FOR LOOSE STOOLS 100mg 2023 Active 2023 97243 27842 1 Twice daily as needed By Mouth False Atorvastati n 40 mg tablet [generic] 40mg By Mouth Once daily For HDL 40mg 08/26 Inactiv e 2023 10075 32775 5 Once daily By Mouth False Tylenol 325 mg tablet 2 tabs By Mouth Every 4 hours as needed For Pain DO NOT EXCEED 3000 MG APAP/24 Hours 2 tabs 2023 Active 2023 24038 47213 0 Every 4 hours as needed By Mouth False Tylenol 325 mg tablet 2 tabs By Mouth Every 4 hours as needed For Fever >100 DO NOT EXCEED 3000 MG APAP/24 Hours 2 tabs 2023 Active 2023 16795 34053 0 Every 4 hours as needed By Mouth False Dulcolax (bisacodyl) 10 mg rectal suppository One Suppository per rectum PRN if Milk of Magnisia ineffective. Give on day 5 of no BM 1 sup 2023 Active 2023 69822 77648 1 Daily as needed Rectal False Fleet Enema 19 gram-7 gram/118 mL Administer per rectum PRN one time if dulcolax suppository not effective. Give on day 6 of no BM 1 2023 Active 2023 97560 73986 6 Daily as needed Rectal False Dextrose 50 % in water (D50W) intravenous solution [generic] Dextrose 50% evonne 20-50 ml (slow push) Intravenous if Glucagon not effective after 15 minutes. CALL 911 for ED Evaluation. 50% evonne 2023 Active 2023 52362 92189 9 Intrav enous False Glucagon (HCl) Emergency Kit 1 mg solution for injection Administer Glucagon 1 mg Intramuscular if 15 minutes after GLucose Gel is administered Glucose remains less than 70 1 mg 2023 Active 2023 40411 73230 2 Intram uscula r False Glucose Gel 40 % oral gel [Dextrose] PRN If resident is unable to swallow (with or without symptoms) and Glucose results less than 70 give GLucose 40% Gel 1 tube orally - Recheck Glucose 15 minutes after administratio n. 1 tube 2023 Active 2023 69505 20242 8 By Mouth False Milk of Magnesia 400 mg/5 mL oral suspension [Magnesium hydroxide] PRN 30ml By Mouth Daily as needed for constipation one time daily if no BM, on day 4 of no BM (PRN refer to instructions) For Constipation 30 mL 2023 Active 2023 50874 68225 6 Daily as needed By Mouth False Atorvastati n 40 mg tablet [generic] 08/26 Inactiv e 2023 53397 49103 5 Atorvastati n 40 mg tablet [generic] 40mg By Mouth Once daily For HDL 40mg 2023 Active 2023 98557 47639 5 Once daily By Mouth False Insulin aspart (U-100) 100 unit/mL (3 mL) subcutaneou s pen [generic] 15 units Subcutaneous 1 time For dm 15 units 08/26 Inactiv e 2023 05327 79599 5 1 time Subcut aneous False Humalog KwikPen (U-100) Insulin 100 unit/mL subcutaneou s 15 units Subcutaneous 1 time For dm 15 units 08/27 Inactiv e 2023 36663 20394 9 1 time Subcut aneous False Linezolid 600 mg tablet [generic] 600 mg By Mouth Every 12 hours For MRSA INFECTION L BKA 600 mg 09/06 Active 2023 72461 23523 1 Every 12 hours By Mouth False Cefpodoxime 200 mg tablet [generic] 400 mg By Mouth Twice daily For MRSA INFECTION L BKA 400 mg 08/31 Inactiv e 2023 82788 29521 0 Twice daily By Mouth False Senna 8.6 mg tablet 8.6 mg By Mouth Once daily For Constipation 8.6 mg 2023 Active 2023 15328 77630 1 Once daily By Mouth False Humalog [...] abnormalities . Per Carb 2023 Active 2023 22929 60623 9 4 times a day Subcut aneous False Humalog KwikPen (U-100) Insulin 100 unit/mL subcutaneou s 08/31 Inactiv e 2023 19010 16338 9 MediHoney HCS 4 1/2in X 4 1/2in bandage Cleanse area with NSS, apply one mediney hydrocolloid dressing, non adherent dressing, kerlix secure with paper tape daily. For wound stage III 1 2023 Active 2023 39018 80658 1 Once daily Topica l False Problems Code Description Start Date End Date Status D64.9 Anemia, unspecified 08/25/2024 Activ e I25.10 Atherosclerotic hear t disease of [place] coronary artery without angina pectoris 08/25/2024 Active [...] weight Temperature SpO2 Blood Sugar Pulse Respirations 11754 8 67.00 mm[Hg] - Sitting 145.00 mm[Hg] - Sitting 98.50 Forehead Scan 96.00 % 81.00/ min 16.00/min 69778 2 67.00 mm[Hg] - Sitting 145.00 mm[Hg] - Sitting 98.50 Tympanic 81.00/ min 16.00/min 73101 004 80389 5 56.00 mm[Hg] - Sitting 142.00 mm[Hg] - Sitting 136.40 NI 100.20 Tympanic 96.00 % 92.00/ min 18.00/min 06974 004 33652 6 32987 004 55511 4 143.00 mg/dL 45610 004 18632 0 97.80 Tympanic 22560 005 88071 7 60.00 mm[Hg] - Sitting 140.00 mm[Hg] - Sitting 98.00 Tympanic 84.00/ min 18.00/min 12562 005 89952 0 63.00 mm[Hg] - Sitting 141.00 mm[Hg] - Sitting 98.20 Tympanic 92.00 % 63.00/ min 16.00/min 02400 005 40830 8 69.00 mm[Hg] - Sitting 106.00 mm[Hg] - Sitting 97.20 Tympanic 64445 005 77816 7 69.00/ min 16.00/min 94808 005 20791 3 69.00 mm[Hg] - Sitting 106.00 mm[Hg] - Sitting 98.20 Tympanic 69.00/ min 16.00/min 02999 005 79519 1 367.00 mg/dL 65861 005 50853 2 97.20 Tympanic 18245 005 77135 4 97.20 Tympanic 23609 005 43963 0 69.00 mm[Hg] - Sitting 106.00 mm[Hg] - Sitting 69.00/ min 84321 005 41048 3 452.00 mg/dL 27832 005 21248 3 452.00 mg/dL 93306 005 10809 5 352.00 mg/dL 44282 005 49817 3 352.00 mg/dL 40402 005 45476 7 98.20 Tympanic 49265 005 35363 3 101.00 mg/dL 82711 005 25950 8 101.00 mg/dL 90278 006 25377 4 66.00 mm[Hg] - Sitting 107.00 mm[Hg] - Sitting 98.00 Tympanic 66.00/ min 18.00/min 66245 006 82427 0 62.00 mm[Hg] - Sitting 162.00 mm[Hg] - Sitting 98.20 Tympanic 96.00 % 60.00/ min 16.00/min 70565 006 04466 4 62.00 mm[Hg] - Sitting 162.00 mm[Hg] - Sitting 98.00 Tympanic 70.00/ min 18.00/min 8 62.00 mm[Hg] - Sitting 162.00 mm[Hg] - Sitting 98.20 Tympanic Immunizations Vaccine Date Status COVID-19 09/20/2023 Completed Other 10/08/2023 Completed Shingles 05/27/2011 Completed Tetanus 04/13/2022 Completed TDaP 04/13/2022 Completed Shingles 2 10/05/2018 Completed
--- OUTSIDE RECORDS SUMMARY | 2024-10-03 11:15 | External Medical Summary | Continuity Of Care Document ---
Author Name Unknown Address [address] [address] Organization [facility] () Care Team Providers Care Director Instrumentation Name Role Phone DO Machado Amy Primary Care Provider [phone] Allergies Allergy Reaction Start Date End Date [...] 3 0.1 mL 08/29 Inactiv e 2023 88007 32697 0 1 time Intrad ermal False Tubersol 5 tub. unit/0.1 mL intradermal injection solution [Tuberculin PPD] 0.1mL Intradermal 1 time For PPD 2nd Step Give 2nd Step PPD Day 1 and Read results Day 3 (schedule 7 days after 1st READ) 0.1mL 09/08 Active 2023 28699 10753 0 1 time Intrad ermal False Humalog [...] order For Diabetes 08/25 Inactiv e 2023 79220 67710 9 4 times a day Subcut aneous False Aspirin 325 mg tablet [generic] 325 By Mouth Twice daily For Anticoagulati on 325 09/25 Active 2023 10945 03546 1 Twice daily By Mouth False Ferrous sulfate 325 mg (65 mg iron) tablet [generic] 325 By Mouth Once daily For anemia 325 2023 Active 2023 96824 94820 5 Once daily By Mouth False Linezolid 600 mg tablet [generic] 600 mg By Mouth Every 12 hours For MRSA INFECTION L BKA 600 mg 08/25 Inactiv e 2023 87268 42368 1 Every 12 hours By Mouth False Cefpodoxime 200 mg tablet [generic] 400 mg By Mouth Twice daily For MRSA INFECTION L BKA 400 mg 08/25 Inactiv e 2023 19576 44257 0 Twice daily By Mouth False Coenzyme Q10 100 mg tablet [generic] 100 mg By Mouth Once daily For SUPP 100 mg 2023 Active 2023 45195 52085 0 Once daily By Mouth False Levothyroxi ne 50 mcg tablet [generic] 50mcg By Mouth Once daily For hypothyroidis m 50mcg 2023 Active 2023 90130 63239 0 Once daily By Mouth False One A Day Men Complete 240 mcg-25 mcg-300 mcg tablet 1 tab By Mouth Once daily For supplement 1 tab 2023 Active 2023 64448 68545 1 Once daily By Mouth False Cholecalcif adalberto (vitamin D3) 50 mcg (2,000 unit) tablet [generic] 1 TAB By Mouth Once daily For SUPP 1 TAB 2023 Active 2023 60046 96413 1 Once daily By Mouth False Cetirizine 10 mg tablet [generic] 1 TAB By Mouth At bedtime For Allergies 1 TAB 2023 Active 2023 65502 96899 0 At bedtime By Mouth False Timolol maleate 0.25 % eye drops [generic] 1 drop Both Eyes Twice daily For glaucoma 1 drop 2023 0000 /0000 Active 2023 00045 24472 5 Twice daily Both Eyes False Alendronate 35 mg tablet [generic] 35mg By Mouth Every week For SIADH 35mg 08/31 Inactiv e 2023 38993 13400 5 Every week By Mouth False Lantus Solostar U-100 Insulin 100 unit/mL (3 mL) subcutaneou s pen 18 units Subcutaneous Every morning For DIABETES 18 units 08/25 Inactiv e 2023 37510 55994 0 Every morning Subcut aneous False Lantus Solostar U-100 Insulin 100 unit/mL (3 mL) subcutaneou s pen 18 units Subcutaneous Every morning For DIABETES 18 units 2023 Active 2023 83645 66542 0 Every morning Subcut aneous False Linezolid 600 mg tablet [generic] 600 mg By Mouth Every 12 hours For MRSA INFECTION L BKA 600 mg 08/28 Inactiv e 2023 87016 52564 1 Every 12 hours By Mouth False [...] order For Diabetes 08/31 Inactiv e 2023 93350 02362 9 4 times a day Subcut aneous False Cefpodoxime 200 mg tablet [generic] 400 mg By Mouth Twice daily For MRSA INFECTION L BKA 400 mg 08/28 Inactiv e 2023 97503 51367 0 Twice daily By Mouth False Brimonidine 0.1 % eye drops [generic] 1 drop Both Eyes Twice daily For glaucoma 1 drop 2023 Active 2023 77504 44945 0 Twice daily Both Eyes False Metoprolol succinate ER 50 mg tablet,exte nded release 24 hr [generic] 50 mg By Mouth Once daily HOLD FOR SBP <100, or pulse <60 For HTN 50 mg 2023 Active 2023 73914 66859 1 Once daily By Mouth False Amlodipine 2.5 mg tablet [generic] 2.5 mg By Mouth Once daily For HTN 2.5 mg 2023 Active 2023 11608 77428 5 Once daily By Mouth False Docusate sodium 100 mg capsule [generic] 100mg By Mouth Twice daily as needed For constipation HOLD FOR LOOSE STOOLS 100mg 2023 Active 2023 70369 65545 1 Twice daily as needed By Mouth False Atorvastati n 40 mg tablet [generic] 40mg By Mouth Once daily For HDL 40mg 08/26 Inactiv e 2023 86884 77838 5 Once daily By Mouth False Tylenol 325 mg tablet 2 tabs By Mouth Every 4 hours as needed For Pain DO NOT EXCEED 3000 MG APAP/24 Hours 2 tabs 2023 Active 2023 01588 22589 0 Every 4 hours as needed By Mouth False Tylenol 325 mg tablet 2 tabs By Mouth Every 4 hours as needed For Fever >100 DO NOT EXCEED 3000 MG APAP/24 Hours 2 tabs 2023 Active 2023 50362 49776 0 Every 4 hours as needed By Mouth False Dulcolax (bisacodyl) 10 mg rectal suppository One Suppository per rectum PRN if Milk of Magnisia ineffective. Give on day 5 of no BM 1 sup 2023 Active 2023 25208 57732 1 Daily as needed Rectal False Fleet Enema 19 gram-7 gram/118 mL Administer per rectum PRN one time if dulcolax suppository not effective. Give on day 6 of no BM 1 2023 Active 2023 15986 84155 6 Daily as needed Rectal False Dextrose 50 % in water (D50W) intravenous solution [generic] Dextrose 50% evonne 20-50 ml (slow push) Intravenous if Glucagon not effective after 15 minutes. CALL 911 for ED Evaluation. 50% evonne 2023 Active 2023 26275 85698 9 Intrav enous False Glucagon (HCl) Emergency Kit 1 mg solution for injection Administer Glucagon 1 mg Intramuscular if 15 minutes after GLucose Gel is administered Glucose remains less than 70 1 mg 2023 Active 2023 04938 50226 2 Intram uscula r False Glucose Gel 40 % oral gel [Dextrose] PRN If resident is unable to swallow (with or without symptoms) and Glucose results less than 70 give GLucose 40% Gel 1 tube orally - Recheck Glucose 15 minutes after administratio n. 1 tube 2023 Active 2023 17825 61954 8 By Mouth False Milk of Magnesia 400 mg/5 mL oral suspension [Magnesium hydroxide] PRN 30ml By Mouth Daily as needed for constipation one time daily if no BM, on day 4 of no BM (PRN refer to instructions) For Constipation 30 mL 2023 Active 2023 00700 29076 6 Daily as needed By Mouth False Atorvastati n 40 mg tablet [generic] 08/26 Inactiv e 2023 03334 47778 5 Atorvastati n 40 mg tablet [generic] 40mg By Mouth Once daily For HDL 40mg 2023 Active 2023 56173 65522 5 Once daily By Mouth False Insulin aspart (U-100) 100 unit/mL (3 mL) subcutaneou s pen [generic] 15 units Subcutaneous 1 time For dm 15 units 08/26 Inactiv e 2023 39652 38520 5 1 time Subcut aneous False Humalog KwikPen (U-100) Insulin 100 unit/mL subcutaneou s 15 units Subcutaneous 1 time For dm 15 units 08/27 Inactiv e 2023 66924 35771 9 1 time Subcut aneous False Linezolid 600 mg tablet [generic] 600 mg By Mouth Every 12 hours For MRSA INFECTION L BKA 600 mg 09/06 Active 2023 24103 83624 1 Every 12 hours By Mouth False Cefpodoxime 200 mg tablet [generic] 400 mg By Mouth Twice daily For MRSA INFECTION L BKA 400 mg 08/31 Inactiv e 2023 32788 37146 0 Twice daily By Mouth False Senna 8.6 mg tablet 8.6 mg By Mouth Once daily For Constipation 8.6 mg 2023 Active 2023 04728 73644 1 Once daily By Mouth False Humalog [...] abnormalities . Per Carb 2023 Active 2023 46559 79648 9 4 times a day Subcut aneous False Alendronate 35 mg tablet [generic] 08/31 Inactiv e 2023 49232 26290 5 Alendronate 35 mg tablet [generic] 35mg By Mouth Every week For Osteoporosis 35mg 2023 Active 2023 95014 85636 5 Every week By Mouth False ProSource 10 gram-100 kcal/30 mL oral liquid 30 ml By Mouth Once daily For wound healing 30 ml 2023 Active 2023 58825 92407 2 Once daily By Mouth False Humalog KwikPen (U-100) Insulin 100 unit/mL subcutaneou s 08/31 Inactiv e 2023 10061 66677 9 MediHoney HCS 4 1/2in X 4 1/2in bandage Cleanse area with NSS, apply one medihoney hydrocolloid dressing, non adherent dressing, kerlix secure with paper tape daily. 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 08/25/2024 Active [...] weight Temperature SpO2 Blood Sugar Pulse Respirations 64349 8 67.00 mm[Hg] - Sitting 145.00 mm[Hg] - Sitting 98.50 Forehead Scan 96.00 % 81.00/ min 16.00/min 57666 004 28913 2 67.00 mm[Hg] - Sitting 145.00 mm[Hg] - Sitting 98.50 Tympanic 81.00/ min 16.00/min 47451 004 76415 5 56.00 mm[Hg] - Sitting 142.00 mm[Hg] - Sitting 136.40 NI 100.20 Tympanic 96.00 % 92.00/ min 18.00/min 91072 004 50821 6 52294 004 14543 4 143.00 mg/dL 004 30217 0 97.80 Tympanic 20827 005 48974 7 60.00 mm[Hg] - Sitting 140.00 mm[Hg] - Sitting 98.00 Tympanic 84.00/ min 18.00/min 10078 005 15378 0 63.00 mm[Hg] - Sitting 141.00 mm[Hg] - Sitting 98.20 Tympanic 92.00 % 63.00/ min 16.00/min 99252 005 12321 8 69.00 mm[Hg] - Sitting 106.00 mm[Hg] - Sitting 97.20 Tympanic 52463 005 69679 7 69.00/ min 16.00/min 48128 005 93050 3 69.00 mm[Hg] - Sitting 106.00 mm[Hg] - Sitting 98.20 Tympanic 69.00/ min 16.00/min 22275 005 95059 1 367.00 mg/dL 76693 005 20763 2 97.20 Tympanic 59590 005 51657 4 97.20 Tympanic 81003 005 61779 0 69.00 mm[Hg] - Sitting 106.00 mm[Hg] - Sitting 69.00/ min 10282 005 10304 3 452.00 mg/dL 53113 005 64748 3 452.00 mg/dL 66644 005 26034 5 352.00 mg/dL 20816 005 16670 3 352.00 mg/dL 32866 005 17457 7 98.20 Tympanic 37120 005 45645 3 101.00 mg/dL 94810 005 8 101.00 mg/dL 43434 006 79227 4 66.00 mm[Hg] - Sitting 107.00 mm[Hg] - Sitting 98.00 Tympanic 66.00/ min 18.00/min 39879 006 28862 0 62.00 mm[Hg] - Sitting 162.00 mm[Hg] - Sitting 98.20 Tympanic 96.00 % 60.00/ min 16.00/min 88667 006 72226 4 62.00 mm[Hg] - Sitting 162.00 mm[Hg] - Sitting 98.00 Tympanic 70.00/ min 18.00/min 62390 006 62845 8 62.00 mm[Hg] - Sitting 162.00 mm[Hg] - Sitting 98.20 Tympanic 70.00/ min 18.00/min 34346 006 80017 2 66.00 mm[Hg] - Sitting 132.00 mm[Hg] - Sitting 98.60 Tympanic 74.00/ min 16.00/min 03930 006 46173 5 159.00 mg/dL 08206 006 93581 1 159.00 mg/dL 67178 006 56850 8 98.00 Tympanic 12259 006 32585 2 62.00 mm[Hg] - Sitting 162.00 mm[Hg] - Sitting 70.00/ min 04993 006 85187 7 264.00 mg/dL 04776 006 99646 7 264.00 mg/dL 17394 006 29727 4 196.00 mg/dL 84124 006 37048 3 98.20 Tympanic 13538 006 29380 6 271.00 mg/dL 13053 007 27679 3 97.20 Tympanic 01398 007 18381 2 63.00 mm[Hg] - Sitting 132.00 mm[Hg] - Sitting 98.50 Tympanic 94.00 % 66.00/ min 16.00/min 19134 007 80051 5 188.00 mg/dL 19438 007 08454 2 188.00 mg/dL 39502 007 85812 2 188.00 mg/dL 20462 007 03779 7 97.20 Tympanic 99529 007 92054 6 97.20 Tympanic 47865 007 93401 5 67.00 mm[Hg] - Sitting 152.00 mm[Hg] - Sitting 68.00/ min 16807 007 79550 0 141.00 mg/dL 30944 007 79969 3 141.00 mg/dL 65678 007 57605 1 366.00 mg/dL 72880 007 70146 7 366.00 mg/dL 82030 007 55455 7 98.00 Tympanic 62842 007 45443 6 324.00 mg/dL 35166 007 05181 3 98.00 Tympanic 50252 007 72256 7 324.00 mg/dL 36064 008 78790 0 98.00 Tympanic 86820 008 93574 2 97.90 Tympanic 94455 008 24887 0 98.20 Tympanic 62109 008 16620 0 73.00 mm[Hg] - Sitting 156.00 mm[Hg] - Sitting 98.60 Tympanic 99.00 % 66.00/ min 20.00/min 74049 008 80121 5 137.00 mg/dL 14106 008 09707 7 137.00 mg/dL 98229 008 68325 2 97.90 Tympanic 45766 008 84735 1 137.00 mg/dL 16507 008 97723 8 97.90 Tympanic 00459 008 07382 5 67.00 mm[Hg] - Sitting 124.00 /min 27218 008 32122 6 212.00 mg/dL 99731 008 62887 6 212.00 mg/dL 24852 008 63063 9 317.00 mg/dL 89765 008 36602 4 317.00 mg/dL 63664 008 87108 8 252.00 mg/dL 31172 008 82667 0 98.70 Tympanic 12708 008 64306 7 252.00 mg/dL 33828 008 30991 3 98.70 Tympanic 03369 009 15442 9 98.70 Tympanic 83557 009 06807 3 98.20 Tympanic 55503 009 98506 5 98.40 Tympanic 39724 009 54614 5 57.00 mm[Hg] - Sitting 129.00 mm[Hg] - Sitting 98.30 Tympanic 97.00 % 65.00/ min 18.00/min 86949 009 80941 1 255.00 mg/dL 19223 009 40372 4 255.00 mg/dL 71086 009 48299 5 98.20 Tympanic 25896 009 96521 0 255.00 mg/dL 30224 009 16966 0 98.20 Tympanic 62237 009 76547 4 63.00 mm[Hg] - Lying Down 102.00 mm[Hg] - Lying Down 58.00/ min 91552 009 53541 0 167.00 mg/dL 11838 009 05959 1 167.00 mg/dL 91351 009 54135 2 164.00 mg/dL 28052 009 36180 1 164.00 mg/dL 65546 009 80110 5 208.00 mg/dL 46207 010 50047 3 98.40 Tympanic 44748 010 72110 5 98.40 Tympanic 70471 010 27266 7 66 [place] [address]60 010 53527 4 60.00 mm[Hg] - Sitting 143.00 mm[Hg] - Sitting 98.90 Tympanic 98.00 % 67.00/ min 18.00/min 53007 010 74256 2 214.00 mg/dL 65471 010 27286 0 214.00 mg/dL 80262 010 77318 7 214.00 mg/dL 93466 010 51511 6 64.00 mm[Hg] - Sitting 110.00 mm[Hg] - Sitting 72.00/ min 28118 010 96022 7 98.40 Tympanic 49948 010 95948 1 212.00 mg/dL 80266 010 86596 2 212.00 mg/dL 33260 010 93473 1 115.00 mg/dL 26790 010 59128 0 115.00 mg/dL 51862 010 23684 4 98.50 Tympanic 31903 010 24751 4 150.00 mg/dL 91985 010 40275 0 150.00 mg/dL 07582 011 13257 9 98.60 Tympanic 06640 011 96199 1 67.00 mm[Hg] - Sitting 144.00 mm[Hg] - Sitting 98.20 Tympanic 98.00 % 61.00/ min 18.00/min 15801 011 96351 7 290.00 mg/dL 49533 011 46309 2 290.00 mg/dL 19639 011 91614 2 290.00 mg/dL 08338 011 89005 7 54.00 mm[Hg] - Sitting 136.00 mm[Hg] - Sitting 101.00 /min 39860 011 21496 7 98.60 Tympanic 87880 011 30453 5 240.00 mg/dL 52949 011 54999 1 240.00 mg/dL 50666 011 86336 1 156.00 mg/dL 32382 011 87378 9 156.00 mg/dL 35328 011 58186 0 97.80 Tympanic 02744 011 74001 8 343.00 mg/dL 79976 012 07455 9 97.90 Tympanic 37169 012 07274 2 466.00 mg/dL 49805 012 46576 1 466.00 mg/dL 80354 012 20920 3 466.00 mg/dL 54054 012 19711 8 97.90 Tympanic 86081 012 49407 8 56.00 mm[Hg] - Sitting 96.00 mm[Hg] - Sitting 61.00/ min 34896 012 00420 7 350.00 mg/dL 07000 012 12269 5 350.00 mg/dL 72037 012 19684 6 111.00 mg/dL 80435 012 57823 0 111.00 mg/dL 24807 012 31880 5 98.40 Tympanic 04765 012 14542 6 114.00 mg/dL 91722 013 51090 4 74.00 mm[Hg] - Sitting 112.00 mm[Hg] - Sitting 98.40 Tympanic 70.00/ min 18.00/min 64367 013 81410 8 244.00 mg/dL 60703 013 58404 7 244.00 mg/dL 73658 013 93994 1 244.00 mg/dL 00639 013 93262 1 98.20 Tympanic 81258 013 36923 7 72.00 mm[Hg] - Sitting 119.00 mm[Hg] - Sitting 76.00/ min 94134 013 47466 7 253.00 mg/dL 76847 013 07294 4 253.00 mg/dL Immunizations Vaccine Date Status COVID-19 09/20/2023 Completed Other 10/08/2023 Completed Shingles 05/27/2011 Completed Tetanus 04/13/2022 Completed TDaP 04/13/2022 Completed Shingles 2 10/05/2018 Completed
--- OUTSIDE RECORDS SUMMARY | 2024-10-03 11:15 | External Medical Summary | Continuity Of Care Document ---
Author Name Unknown Address [address] [address] Organization [facility] () Care Team Providers Care Public Address Servicer Name Role Phone DO Machado Amy Primary Care Provider [phone] Allergies Allergy Reaction Start Date End Date [...] 3 0.1 mL 08/29 Inactiv e 2023 49454 87885 0 1 time Intrad ermal False Tubersol 5 tub. unit/0.1 mL intradermal injection solution [Tuberculin PPD] 0.1mL Intradermal 1 time For PPD 2nd Step Give 2nd Step PPD Day 1 and Read results Day 3 (schedule 7 days after 1st READ) 0.1mL 09/08 Active 2023 35698 88482 0 1 time Intrad ermal False Humalog [...] order For Diabetes 08/25 Inactiv e 2023 06655 51295 9 4 times a day Subcut aneous False Aspirin 325 mg tablet [generic] 325 By Mouth Twice daily For Anticoagulati on 325 09/25 Active 2023 64516 62424 1 Twice daily By Mouth False Ferrous sulfate 325 mg (65 mg iron) tablet [generic] 325 By Mouth Once daily For anemia 325 2023 Active 2023 50711 15819 5 Once daily By Mouth False Linezolid 600 mg tablet [generic] 600 mg By Mouth Every 12 hours For MRSA INFECTION L BKA 600 mg 08/25 Inactiv e 2023 11602 54361 1 Every 12 hours By Mouth False Cefpodoxime 200 mg tablet [generic] 400 mg By Mouth Twice daily For MRSA INFECTION L BKA 400 mg 08/25 Inactiv e 2023 67350 05518 0 Twice daily By Mouth False Coenzyme Q10 100 mg tablet [generic] 100 mg By Mouth Once daily For SUPP 100 mg 2023 Active 2023 63720 68828 0 Once daily By Mouth False Levothyroxi ne 50 mcg tablet [generic] 50mcg By Mouth Once daily For hypothyroidis m 50mcg 2023 Active 2023 87787 43527 0 Once daily By Mouth False One A Day Men Complete 240 mcg-25 mcg-300 mcg tablet 1 tab By Mouth Once daily For supplement 1 tab 2023 Active 2023 41607 66165 1 Once daily By Mouth False Cholecalcif adalberto (vitamin D3) 50 mcg (2,000 unit) tablet [generic] 1 TAB By Mouth Once daily For SUPP 1 TAB 2023 Active 2023 69613 65924 1 Once daily By Mouth False Cetirizine 10 mg tablet [generic] 1 TAB By Mouth At bedtime For Allergies 1 TAB 2023 Active 2023 57917 78649 0 At bedtime By Mouth False Timolol maleate 0.25 % eye drops [generic] 1 drop Both Eyes Twice daily For glaucoma 1 drop 2023 Active 2023 19641 10953 5 Twice daily Both Eyes False Alendronate 35 mg tablet [generic] 35mg By Mouth Every week For SIADH 35mg 2023 Active 2023 04192 68017 5 Every week By Mouth False Lantus Solostar U-100 Insulin 100 unit/mL (3 mL) subcutaneou s pen 18 units Subcutaneous Every morning For DIABETES 18 units 08/25 Inactiv e 2023 85606 97685 0 Every morning Subcut aneous False Lantus Solostar U-100 Insulin 100 unit/mL (3 mL) subcutaneou s pen 18 units Subcutaneous Every morning For DIABETES 18 units 2023 Active 2023 09261 83610 0 Every morning Subcut aneous False Linezolid 600 mg tablet [generic] 600 mg By Mouth Every 12 hours For MRSA INFECTION L BKA 600 mg 08/28 Inactiv e 2023 91517 15717 1 Every 12 hours By Mouth False [...] order For Diabetes 08/31 Inactiv e 2023 76202 54748 9 4 times a day Subcut aneous False Cefpodoxime 200 mg tablet [generic] 400 mg By Mouth Twice daily For MRSA INFECTION L BKA 400 mg 08/28 Inactiv e 2023 12414 73021 0 Twice daily By Mouth False Brimonidine 0.1 % eye drops [generic] 1 drop Both Eyes Twice daily For glaucoma 1 drop 2023 Active 2023 30393 27853 0 Twice daily Both Eyes False Metoprolol succinate ER 50 mg tablet,exte nded release 24 hr [generic] 50 mg By Mouth Once daily HOLD FOR SBP <100, or pulse <60 For HTN 50 mg 2023 Active 2023 93127 07168 1 Once daily By Mouth False Amlodipine 2.5 mg tablet [generic] 2.5 mg By Mouth Once daily For HTN 2.5 mg 2023 Active 2023 49036 88811 5 Once daily By Mouth False Docusate sodium 100 mg capsule [generic] 100mg By Mouth Twice daily as needed For constipation HOLD FOR LOOSE STOOLS 100mg 2023 Active 2023 34298 97114 1 Twice daily as needed By Mouth False Atorvastati n 40 mg tablet [generic] 40mg By Mouth Once daily For HDL 40mg 08/26 Inactiv e 2023 83718 84678 5 Once daily By Mouth False Tylenol 325 mg tablet 2 tabs By Mouth Every 4 hours as needed For Pain DO NOT EXCEED 3000 MG APAP/24 Hours 2 tabs 2023 Active 2023 48723 99988 0 Every 4 hours as needed By Mouth False Tylenol 325 mg tablet 2 tabs By Mouth Every 4 hours as needed For Fever >100 DO NOT EXCEED 3000 MG APAP/24 Hours 2 tabs 2023 Active 2023 91083 23864 0 Every 4 hours as needed By Mouth False Dulcolax (bisacodyl) 10 mg rectal suppository One Suppository per rectum PRN if Milk of Magnisia ineffective. Give on day 5 of no BM 1 sup 2023 Active 2023 11940 27071 1 Daily as needed Rectal False Fleet Enema 19 gram-7 gram/118 mL Administer per rectum PRN one time if dulcolax suppository not effective. Give on day 6 of no BM 1 2023 Active 2023 03126 55541 6 Daily as needed Rectal False Dextrose 50 % in water (D50W) intravenous solution [generic] Dextrose 50% evonne 20-50 ml (slow push) Intravenous if Glucagon not effective after 15 minutes. CALL 911 for ED Evaluation. 50% evonne 2023 Active 2023 53883 34705 9 Intrav enous False Glucagon (HCl) Emergency Kit 1 mg solution for injection Administer Glucagon 1 mg Intramuscular if 15 minutes after GLucose Gel is administered Glucose remains less than 70 1 mg 2023 Active 2023 03678 01572 2 Intram uscula r False Glucose Gel 40 % oral gel [Dextrose] PRN If resident is unable to swallow (with or without symptoms) and Glucose results less than 70 give GLucose 40% Gel 1 tube orally - Recheck Glucose 15 minutes after administratio n. 1 tube 2023 Active 2023 08755 14581 8 By Mouth False Milk of Magnesia 400 mg/5 mL oral suspension [Magnesium hydroxide] PRN 30ml By Mouth Daily as needed for constipation one time daily if no BM, on day 4 of no BM (PRN refer to instructions) For Constipation 30 mL 2023 Active 2023 40416 82078 6 Daily as needed By Mouth False Atorvastati n 40 mg tablet [generic] 08/26 Inactiv e 2023 36740 26024 5 Atorvastati n 40 mg tablet [generic] 40mg By Mouth Once daily For HDL 40mg 2023 Active 2023 82851 87274 5 Once daily By Mouth False Insulin aspart (U-100) 100 unit/mL (3 mL) subcutaneou s pen [generic] 15 units Subcutaneous 1 time For dm 15 units 08/26 Inactiv e 2023 56493 22030 5 1 time Subcut aneous False Humalog KwikPen (U-100) Insulin 100 unit/mL subcutaneou s 15 units Subcutaneous 1 time For dm 15 units 08/27 Inactiv e 2023 55955 05173 9 1 time Subcut aneous False Linezolid 600 mg tablet [generic] 600 mg By Mouth Every 12 hours For MRSA INFECTION L BKA 600 mg 09/06 Active 2023 72198 95301 1 Every 12 hours By Mouth False Cefpodoxime 200 mg tablet [generic] 400 mg By Mouth Twice daily For MRSA INFECTION L BKA 400 mg 08/31 Inactiv e 2023 53407 18615 0 Twice daily By Mouth False Senna 8.6 mg tablet 8.6 mg By Mouth Once daily For Constipation 8.6 mg 2023 Active 2023 40407 94293 1 Once daily By Mouth False Humalog [...] abnormalities . Per Carb 2023 Active 2023 93946 10931 9 4 times a day Subcut aneous False Humalog KwikPen (U-100) Insulin 100 unit/mL subcutaneou s 08/31 Inactiv e 2023 16834 16853 9 MediHoney HCS 4 1/2in X 4 1/2in bandage Cleanse area with NSS, apply one mediney hydrocolloid dressing, non adherent dressing, kerlix secure with paper tape daily. For wound stage III 1 2023 Active 2023 87775 56534 1 Once daily Topica l False Problems Code Description Start Date End Date Status D64.9 Anemia, unspecified 08/25/2024 Activ e I25.10 Atherosclerotic hear t disease of [place] coronary artery without angina pectoris 08/25/2024 Active [...] weight Temperature SpO2 Blood Sugar Pulse Respirations 28405 8 67.00 mm[Hg] - Sitting 145.00 mm[Hg] - Sitting 98.50 Forehead Scan 96.00 % 81.00/ min 16.00/min 82547 2 67.00 mm[Hg] - Sitting 145.00 mm[Hg] - Sitting 98.50 Tympanic 81.00/ min 16.00/min 20543 004 51305 5 56.00 mm[Hg] - Sitting 142.00 mm[Hg] - Sitting 136.40 NI 100.20 Tympanic 96.00 % 92.00/ min 18.00/min 11125 004 98298 6 76508 004 74575 4 143.00 mg/dL 02191 004 06571 0 97.80 Tympanic 55699 005 34653 7 60.00 mm[Hg] - Sitting 140.00 mm[Hg] - Sitting 98.00 Tympanic 84.00/ min 18.00/min 94759 005 27705 0 63.00 mm[Hg] - Sitting 141.00 mm[Hg] - Sitting 98.20 Tympanic 92.00 % 63.00/ min 16.00/min 01529 005 28726 8 69.00 mm[Hg] - Sitting 106.00 mm[Hg] - Sitting 97.20 Tympanic 11159 005 79481 7 69.00/ min 16.00/min 24247 005 12199 3 69.00 mm[Hg] - Sitting 106.00 mm[Hg] - Sitting 98.20 Tympanic 69.00/ min 16.00/min 14958 005 32717 1 367.00 mg/dL 99178 005 22537 2 97.20 Tympanic 43053 005 45522 4 97.20 Tympanic 98511 005 04802 0 69.00 mm[Hg] - Sitting 106.00 mm[Hg] - Sitting 69.00/ min 27635 005 00013 3 452.00 mg/dL 05978 005 00327 3 452.00 mg/dL 31038 005 04826 5 352.00 mg/dL 69503 005 08351 3 352.00 mg/dL 70635 005 41799 7 98.20 Tympanic 27367 005 90741 3 101.00 mg/dL 38100 005 10633 8 101.00 mg/dL 20863 006 67729 4 66.00 mm[Hg] - Sitting 107.00 mm[Hg] - Sitting 98.00 Tympanic 66.00/ min 18.00/min 91604 006 96218 0 62.00 mm[Hg] - Sitting 162.00 mm[Hg] - Sitting 98.20 Tympanic 96.00 % 60.00/ min 16.00/min 66006 006 54748 4 62.00 mm[Hg] - Sitting 162.00 mm[Hg] - Sitting 98.00 Tympanic 70.00/ min 18.00/min 38829 006 49191 8 62.00 mm[Hg] - Sitting 162.00 mm[Hg] - Sitting 98.20 Tympanic 70.00/ min 18.00/min 89402 006 15065 2 66.00 mm[Hg] - Sitting 132.00 mm[Hg] - Sitting 98.60 Tympanic 74.00/ min 16.00/min 73627 006 28076 5 159.00 mg/dL 69541 006 47096 1 159.00 mg/dL 07418 006 26413 8 98.00 Tympanic 94954 006 33229 2 62.00 mm[Hg] - Sitting 162.00 mm[Hg] - Sitting 70.00/ min 82345 006 66644 7 264.00 mg/dL 69190 006 84650 7 264.00 mg/dL 95347 006 03533 4 196.00 mg/dL 03524 006 28316 3 98.20 Tympanic 41045 006 03871 6 271.00 mg/dL 34837 007 93889 3 97.20 Tympanic 38639 007 86834 2 63.00 mm[Hg] - Sitting 132.00 mm[Hg] - Sitting 98.50 Tympanic 94.00 % 66.00/ min 16.00/min 59683 007 17941 5 188.00 mg/dL 29343 007 45781 2 188.00 mg/dL 66000 007 36235 2 188.00 mg/dL 82624 007 60065 7 97.20 Tympanic 38501 007 16028 6 97.20 Tympanic 61375 007 46150 5 67.00 mm[Hg] - Sitting 152.00 mm[Hg] - Sitting 68.00/ min 92532 007 98852 0 141.00 mg/dL 19115 007 40124 3 141.00 mg/dL 90190 007 49212 1 366.00 mg/dL 91647 007 44335 7 366.00 mg/dL 94520 007 00550 7 98.00 Tympanic 32273 007 75689 6 324.00 mg/dL 71873 007 15100 3 98.00 Tympanic 70941 007 59591 7 324.00 mg/dL 46708 008 19177 0 98.00 Tympanic 42864 008 49959 2 97.90 Tympanic 87740 008 22305 0 98.20 Tympanic 48948 008 63468 0 73.00 mm[Hg] - Sitting 156.00 mm[Hg] - Sitting 98.60 Tympanic 99.00 % 66.00/ min 20.00/min 14364 008 10931 5 137.00 mg/dL 51218 008 07111 7 137.00 mg/dL 15104 008 21641 2 97.90 Tympanic 31998 008 93028 1 137.00 mg/dL 92615 008 81484 8 97.90 Tympanic 79317 008 97022 5 67.00 mm[Hg] - Sitting 124.00 /min 11627 008 57788 6 212.00 mg/dL 23196 008 99802 6 212.00 mg/dL 67096 008 25769 9 317.00 mg/dL 87335 008 01194 4 317.00 mg/dL 99172 008 19607 8 252.00 mg/dL 93007 008 93832 0 98.70 Tympanic 67676 008 34517 7 252.00 mg/dL 34297 008 25086 3 98.70 Tympanic 01009 009 82785 9 98.70 Tympanic 84374 009 42250 3 98.20 Tympanic 83439 009 36317 5 98.40 Tympanic 22550 009 01925 5 98.30 Tympanic Immunizations Vaccine Date Status COVID-19 09/20/2023 Completed Other 10/08/2023 Completed Shingles 05/27/2011 Completed Tetanus 04/13/2022 Completed TDaP 04/13/2022 Completed Shingles 2 10/05/2018 Completed
--- OUTSIDE RECORDS SUMMARY | 2024-10-03 11:15 | External Medical Summary | Continuity Of Care Document ---
Author Name Unknown Address [address] [address] Organization [facility] () Care Team Providers Care Court Supervisor Name Role Phone DO Machado Amy Primary Care Provider [phone] Allergies Allergy Reaction Start Date End Date [...] 3 0.1 mL 08/29 Inactiv e 2023 26400 50786 0 1 time Intrad ermal False Tubersol 5 tub. unit/0.1 mL intradermal injection solution [Tuberculin PPD] 0.1mL Intradermal 1 time For PPD 2nd Step Give 2nd Step PPD Day 1 and Read results Day 3 (schedule 7 days after 1st READ) 0.1mL 09/08 Active 2023 68324 57855 0 1 time Intrad ermal False Humalog [...] order For Diabetes 08/25 Inactiv e 2023 78672 39799 9 4 times a day Subcut aneous False Aspirin 325 mg tablet [generic] 325 By Mouth Twice daily For Anticoagulati on 325 09/25 Active 2023 38255 57314 1 Twice daily By Mouth False Ferrous sulfate 325 mg (65 mg iron) tablet [generic] 325 By Mouth Once daily For anemia 325 2023 Active 2023 73821 26895 5 Once daily By Mouth False Linezolid 600 mg tablet [generic] 600 mg By Mouth Every 12 hours For MRSA INFECTION L BKA 600 mg 08/25 Inactiv e 2023 68475 83689 1 Every 12 hours By Mouth False Cefpodoxime 200 mg tablet [generic] 400 mg By Mouth Twice daily For MRSA INFECTION L BKA 400 mg 08/25 Inactiv e 2023 93821 19830 0 Twice daily By Mouth False Coenzyme Q10 100 mg tablet [generic] 100 mg By Mouth Once daily For SUPP 100 mg 2023 Active 2023 04713 31967 0 Once daily By Mouth False Levothyroxi ne 50 mcg tablet [generic] 50mcg By Mouth Once daily For hypothyroidis m 50mcg 2023 Active 2023 48672 88723 0 Once daily By Mouth False One A Day Men Complete 240 mcg-25 mcg-300 mcg tablet 1 tab By Mouth Once daily For supplement 1 tab 2023 Active 2023 28260 81310 1 Once daily By Mouth False Cholecalcif adalberto (vitamin D3) 50 mcg (2,000 unit) tablet [generic] 1 TAB By Mouth Once daily For SUPP 1 TAB 2023 Active 2023 72805 84309 1 Once daily By Mouth False Cetirizine 10 mg tablet [generic] 1 TAB By Mouth At bedtime For Allergies 1 TAB 2023 Active 2023 49614 77987 0 At bedtime By Mouth False Timolol maleate 0.25 % eye drops [generic] 1 drop Both Eyes Twice daily For glaucoma 1 drop 2023 Active 2023 21866 72182 5 Twice daily Both Eyes False Alendronate 35 mg tablet [generic] 35mg By Mouth Every week For SIADH 35mg 2023 Active 2023 88044 18198 5 Every week By Mouth False Lantus Solostar U-100 Insulin 100 unit/mL (3 mL) subcutaneou s pen 18 units Subcutaneous Every morning For DIABETES 18 units 08/25 Inactiv e 2023 96034 11556 0 Every morning Subcut aneous False Lantus Solostar U-100 Insulin 100 unit/mL (3 mL) subcutaneou s pen 18 units Subcutaneous Every morning For DIABETES 18 units 2023 Active 2023 83447 44274 0 Every morning Subcut aneous False Linezolid 600 mg tablet [generic] 600 mg By Mouth Every 12 hours For MRSA INFECTION L BKA 600 mg 08/28 Inactiv e 2023 01744 40979 1 Every 12 hours By Mouth False [...] order For Diabetes 08/31 Inactiv e 2023 29198 44553 9 4 times a day Subcut aneous False Cefpodoxime 200 mg tablet [generic] 400 mg By Mouth Twice daily For MRSA INFECTION L BKA 400 mg 08/28 Inactiv e 2023 16296 00645 0 Twice daily By Mouth False Brimonidine 0.1 % eye drops [generic] 1 drop Both Eyes Twice daily For glaucoma 1 drop 2023 Active 2023 21564 11346 0 Twice daily Both Eyes False Metoprolol succinate ER 50 mg tablet,exte nded release 24 hr [generic] 50 mg By Mouth Once daily HOLD FOR SBP <100, or pulse <60 For HTN 50 mg 2023 Active 2023 17508 70569 1 Once daily By Mouth False Amlodipine 2.5 mg tablet [generic] 2.5 mg By Mouth Once daily For HTN 2.5 mg 2023 Active 2023 72548 96647 5 Once daily By Mouth False Docusate sodium 100 mg capsule [generic] 100mg By Mouth Twice daily as needed For constipation HOLD FOR LOOSE STOOLS 100mg 2023 Active 2023 18497 23000 1 Twice daily as needed By Mouth False Atorvastati n 40 mg tablet [generic] 40mg By Mouth Once daily For HDL 40mg 08/26 Inactiv e 2023 83351 31374 5 Once daily By Mouth False Tylenol 325 mg tablet 2 tabs By Mouth Every 4 hours as needed For Pain DO NOT EXCEED 3000 MG APAP/24 Hours 2 tabs 2023 Active 2023 00158 76567 0 Every 4 hours as needed By Mouth False Tylenol 325 mg tablet 2 tabs By Mouth Every 4 hours as needed For Fever >100 DO NOT EXCEED 3000 MG APAP/24 Hours 2 tabs 2023 Active 2023 27759 58469 0 Every 4 hours as needed By Mouth False Dulcolax (bisacodyl) 10 mg rectal suppository One Suppository per rectum PRN if Milk of Magnisia ineffective. Give on day 5 of no BM 1 sup 2023 Active 2023 71741 94703 1 Daily as needed Rectal False Fleet Enema 19 gram-7 gram/118 mL Administer per rectum PRN one time if dulcolax suppository not effective. Give on day 6 of no BM 1 2023 Active 2023 39382 62791 6 Daily as needed Rectal False Dextrose 50 % in water (D50W) intravenous solution [generic] Dextrose 50% evonne 20-50 ml (slow push) Intravenous if Glucagon not effective after 15 minutes. CALL 911 for ED Evaluation. 50% evonne 2023 Active 2023 65501 26216 9 Intrav enous False Glucagon (HCl) Emergency Kit 1 mg solution for injection Administer Glucagon 1 mg Intramuscular if 15 minutes after GLucose Gel is administered Glucose remains less than 70 1 mg 2023 Active 2023 28789 62604 2 Intram uscula r False Glucose Gel 40 % oral gel [Dextrose] PRN If resident is unable to swallow (with or without symptoms) and Glucose results less than 70 give GLucose 40% Gel 1 tube orally - Recheck Glucose 15 minutes after administratio n. 1 tube 2023 Active 2023 75235 05615 8 By Mouth False Milk of Magnesia 400 mg/5 mL oral suspension [Magnesium hydroxide] PRN 30ml By Mouth Daily as needed for constipation one time daily if no BM, on day 4 of no BM (PRN refer to instructions) For Constipation 30 mL 2023 Active 2023 65175 28765 6 Daily as needed By Mouth False Atorvastati n 40 mg tablet [generic] 08/26 Inactiv e 2023 93410 21844 5 Atorvastati n 40 mg tablet [generic] 40mg By Mouth Once daily For HDL 40mg 2023 Active 2023 40020 60535 5 Once daily By Mouth False Insulin aspart (U-100) 100 unit/mL (3 mL) subcutaneou s pen [generic] 15 units Subcutaneous 1 time For dm 15 units 08/26 Inactiv e 2023 74008 51609 5 1 time Subcut aneous False Humalog KwikPen (U-100) Insulin 100 unit/mL subcutaneou s 15 units Subcutaneous 1 time For dm 15 units 08/27 Inactiv e 2023 28953 19110 9 1 time Subcut aneous False Linezolid 600 mg tablet [generic] 600 mg By Mouth Every 12 hours For MRSA INFECTION L BKA 600 mg 09/06 Active 2023 89379 69577 1 Every 12 hours By Mouth False Cefpodoxime 200 mg tablet [generic] 400 mg By Mouth Twice daily For MRSA INFECTION L BKA 400 mg 08/31 Inactiv e 2023 25043 96344 0 Twice daily By Mouth False Senna 8.6 mg tablet 8.6 mg By Mouth Once daily For Constipation 8.6 mg 2023 Active 2023 05177 25941 1 Once daily By Mouth False Humalog [...] abnormalities . Per Carb 2023 Active 2023 61843 49157 9 4 times a day Subcut aneous False Humalog KwikPen (U-100) Insulin 100 unit/mL subcutaneou s 08/31 Inactiv e 2023 80921 42472 9 MediHoney HCS 4 1/2in X 4 1/2in bandage Cleanse area with NSS, apply one mediney hydrocolloid dressing, non adherent dressing, kerlix secure with paper tape daily. For wound stage III 1 2023 Active 2023 36179 28707 1 Once daily Topica l False Problems Code Description Start Date End Date Status D64.9 Anemia, unspecified 08/25/2024 Activ e I25.10 Atherosclerotic hear t disease of [place] coronary artery without angina pectoris 08/25/2024 Active [...] weight Temperature SpO2 Blood Sugar Pulse Respirations 20488 8 67.00 mm[Hg] - Sitting 145.00 mm[Hg] - Sitting 98.50 Forehead Scan 96.00 % 81.00/ min 16.00/min 27035 2 67.00 mm[Hg] - Sitting 145.00 mm[Hg] - Sitting 98.50 Tympanic 81.00/ min 16.00/min 21272 004 73524 5 56.00 mm[Hg] - Sitting 142.00 mm[Hg] - Sitting 136.40 NI 100.20 Tympanic 96.00 % 92.00/ min 18.00/min 06861 004 79548 6 65701 004 53288 4 143.00 mg/dL 16987 004 18787 0 97.80 Tympanic 31070 005 76129 7 60.00 mm[Hg] - Sitting 140.00 mm[Hg] - Sitting 98.00 Tympanic 84.00/ min 18.00/min 39873 005 63324 0 63.00 mm[Hg] - Sitting 141.00 mm[Hg] - Sitting 98.20 Tympanic 92.00 % 63.00/ min 16.00/min 41510 005 55491 8 69.00 mm[Hg] - Sitting 106.00 mm[Hg] - Sitting 97.20 Tympanic 40742 005 29755 7 69.00/ min 16.00/min 30413 005 64541 3 69.00 mm[Hg] - Sitting 106.00 mm[Hg] - Sitting 98.20 Tympanic 69.00/ min 16.00/min 67304 005 98765 1 367.00 mg/dL 89904 005 30389 2 97.20 Tympanic 80908 005 64472 4 97.20 Tympanic 66951 005 96728 0 69.00 mm[Hg] - Sitting 106.00 mm[Hg] - Sitting 69.00/ min 00590 005 17594 3 452.00 mg/dL 25061 005 06983 3 452.00 mg/dL 52441 005 64694 5 352.00 mg/dL 32520 005 12704 3 352.00 mg/dL 86409 005 71596 7 98.20 Tympanic 87184 005 95418 3 101.00 mg/dL 51955 005 79656 8 101.00 mg/dL 19694 006 13230 4 66.00 mm[Hg] - Sitting 107.00 mm[Hg] - Sitting 98.00 Tympanic 66.00/ min 18.00/min 06683 006 76777 0 62.00 mm[Hg] - Sitting 162.00 mm[Hg] - Sitting 98.20 Tympanic 96.00 % 60.00/ min 16.00/min 94461 006 73320 4 62.00 mm[Hg] - Sitting 162.00 mm[Hg] - Sitting 98.00 Tympanic 70.00/ min 18.00/min 68335 006 75080 8 62.00 mm[Hg] - Sitting 162.00 mm[Hg] - Sitting 98.20 Tympanic 70.00/ min 18.00/min 47080 006 82778 2 66.00 mm[Hg] - Sitting 132.00 mm[Hg] - Sitting 98.60 Tympanic 74.00/ min 16.00/min 18717 006 85274 5 159.00 mg/dL 73842 006 25797 1 159.00 mg/dL 34814 006 58061 8 98.00 Tympanic 55935 006 29249 2 62.00 mm[Hg] - Sitting 162.00 mm[Hg] - Sitting 70.00/ min 71348 006 99474 7 264.00 mg/dL 41189 006 09439 7 264.00 mg/dL 66992 006 15004 4 196.00 mg/dL 91875 006 15899 3 98.20 Tympanic 01221 006 07964 6 271.00 mg/dL 37807 007 91919 3 97.20 Tympanic 19503 007 20555 2 63.00 mm[Hg] - Sitting 132.00 mm[Hg] - Sitting 98.50 Tympanic 94.00 % 66.00/ min 16.00/min 41818 007 63091 5 188.00 mg/dL 78219 007 14595 2 188.00 mg/dL 61555 007 04808 2 188.00 mg/dL 77848 007 24442 7 97.20 Tympanic 61376 007 28587 6 97.20 Tympanic 40464 007 90998 5 67.00 mm[Hg] - Sitting 152.00 mm[Hg] - Sitting 68.00/ min 84347 007 56169 0 141.00 mg/dL 73327 007 20621 3 141.00 mg/dL 59674 007 01184 1 366.00 mg/dL 08053 007 14758 7 366.00 mg/dL 64626 007 40206 7 98.00 Tympanic 03230 007 83671 6 324.00 mg/dL 04043 007 88072 3 98.00 Tympanic 74131 007 80107 7 324.00 mg/dL 37222 008 98203 0 98.00 Tympanic 08189 008 95985 2 97.90 Tympanic 50617 008 40863 0 98.20 Tympanic 42839 008 71260 0 73.00 mm[Hg] - Sitting 156.00 mm[Hg] - Sitting 98.60 Tympanic 99.00 % 66.00/ min 20.00/min 47618 008 53603 5 137.00 mg/dL 44357 008 90027 7 137.00 mg/dL 94347 008 75965 2 97.90 Tympanic 45246 008 41163 1 137.00 mg/dL 32127 008 99582 8 97.90 Tympanic 66921 008 39471 5 67.00 mm[Hg] - Sitting 124.00 /min 76908 008 64073 6 212.00 mg/dL 48736 008 13397 6 212.00 mg/dL 86952 008 36877 9 317.00 mg/dL 85771 008 67064 4 317.00 mg/dL 34322 008 59708 8 252.00 mg/dL 34223 008 08224 0 98.70 Tympanic 18847 008 04375 7 252.00 mg/dL 04765 008 98965 3 98.70 Tympanic 55465 009 53275 9 98.70 Tympanic 38471 009 48087 3 98.20 Tympanic 44117 009 66552 5 98.40 Tympanic 90242 009 74426 5 57.00 mm[Hg] - Sitting 129.00 mm[Hg] - Sitting 98.30 Tympanic 97.00 % 65.00/ min 18.00/min 60530 009 56200 1 255.00 mg/dL 38338 009 16965 4 255.00 mg/dL 10207 009 36468 5 98.20 Tympanic 70812 009 64539 0 255.00 mg/dL 14737 009 94044 0 98.20 Tympanic 15146 009 71768 4 63.00 mm[Hg] - Lying Down 102.00 mm[Hg] - Lying Down 58.00/ min 74189 009 72471 0 167.00 mg/dL 03448 009 46425 1 167.00 mg/dL 07984 009 77752 2 164.00 mg/dL 42728 009 76243 1 164.00 mg/dL 69137 009 35787 5 208.00 mg/dL 45467 010 49256 3 98.40 Tympanic 25010 010 25686 5 98.40 Tympanic 43510 010 72540 7 66 [place] [address] 010 71572 4 60.00 mm[Hg] - Sitting 143.00 mm[Hg] - Sitting 98.90 Tympanic 98.00 % 67.00/ min 18.00/min 010 15381 2 214.00 mg/dL 010 30023 0 214.00 mg/dL 010 79672 7 214.00 mg/dL 010 61672 6 64.00 mm[Hg] - Sitting 110.00 mm[Hg] - Sitting 72.00/ min 010 93066 7 98.40 Tympanic 010 95581 1 212.00 mg/dL 010 92344 2 212.00 mg/dL 010 25281 1 115.00 mg/dL 010 97017 0 115.00 mg/dL Immunizations Vaccine Date Status COVID-19 09/20/2023 Completed Other 10/08/2023 Completed Shingles 05/27/2011 Completed Tetanus 04/13/2022 Completed TDaP 04/13/2022 Completed Shingles 2 10/05/2018 Completed
--- OUTSIDE RECORDS SUMMARY | 2024-10-03 11:15 | External Medical Summary | Continuity of Care Document ---
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 PAD (peripheral artery disease)(Discharge Diagnosis) - 08/30/24 Pressure ulcer of heel(Discharge Diagnosis) - 08/30/24 S/P BKA (below knee amputation)(Discharge Diagnosis) - 08/30/24 Discharge Disposition: Home or Self Care Attending Physician: MD Dominguez Paul S Referring Physician: MD Angelica, Marquis Rodríguez Allergies, [...] Start Date: 06/26/24 Status: Ordered Mental Status 08/30/24 Barriers to Learning one year None evide nt Mandatory Health Literacy Documentation Yes Health Literacy Communication Barriers N ever Primary Language Chadian Problem List Condition Confirmation Course Effective Dates Status Health St atus Informant Ischemic necrosis of foot Confirmed Active PAD (peripheral artery disease) Confirmed Active Pressure ulcer of heel Confirmed Active Diagnosis Diagnosis Type Effective Dates Health Status Cl inical Service Informant S/P BKA (below knee amputation) Discharge Diagnosis 08/30/24 Non-Specified Pressure ulcer of heel Discharge Diagnosis 08/30/24 Non-Specified Ischemic necrosis of foot Discharge Diagnosis 08/30/24 Non-Specified PAD (peripheral artery disease) Discharge Diagnosis 08/30/24 Non-Specified Procedures Procedure Date Related Diagnosis Body Site Status Amputation below-knee 1 07/04/24 C ompleted 1Left Social History Social History Type Response Smoking Status Never smoked cigaret luana Sex Male Sex Representation Male (finding) Patient Care team information Care Team Personnel Name: DO Quiroga Jessie L Position: Referring DIRECT Member Role: Primary Care Provider Address: [facility] [place] [address] [place] [address]
--- OUTSIDE RECORDS SUMMARY | 2024-10-03 11:16 | External Medical Summary | Continuity Of Care Document ---
Author Name Unknown Address [address] [address] Organization [facility] () Care Team Providers Care Splicing Machine Operator Name Role Phone DO Machado Amy Primary Care Provider [phone] Allergies Allergy Reaction Start Date End Date [...] 3 0.1 mL 08/29 Inactiv e 2023 30000 10777 0 1 time Intrad ermal False Tubersol 5 tub. unit/0.1 mL intradermal injection solution [Tuberculin PPD] 0.1mL Intradermal 1 time For PPD 2nd Step Give 2nd Step PPD Day 1 and Read results Day 3 (schedule 7 days after 1st READ) 0.1mL 09/08 Active 2023 37961 58973 0 1 time Intrad ermal False Humalog [...] order For Diabetes 08/25 Inactiv e 2023 95961 85931 9 4 times a day Subcut aneous False Aspirin 325 mg tablet [generic] 325 By Mouth Twice daily For Anticoagulati on 325 09/25 Active 2023 01696 05339 1 Twice daily By Mouth False Ferrous sulfate 325 mg (65 mg iron) tablet [generic] 325 By Mouth Once daily For anemia 325 2023 Active 2023 71607 02797 5 Once daily By Mouth False Linezolid 600 mg tablet [generic] 600 mg By Mouth Every 12 hours For MRSA INFECTION L BKA 600 mg 08/25 Inactiv e 2023 23707 79625 1 Every 12 hours By Mouth False Cefpodoxime 200 mg tablet [generic] 400 mg By Mouth Twice daily For MRSA INFECTION L BKA 400 mg 08/25 Inactiv e 2023 09574 37528 0 Twice daily By Mouth False Coenzyme Q10 100 mg tablet [generic] 100 mg By Mouth Once daily For SUPP 100 mg 2023 Active 2023 23745 25507 0 Once daily By Mouth False Levothyroxi ne 50 mcg tablet [generic] 50mcg By Mouth Once daily For hypothyroidis m 50mcg 2023 Active 2023 96109 03376 0 Once daily By Mouth False One A Day Men Complete 240 mcg-25 mcg-300 mcg tablet 1 tab By Mouth Once daily For supplement 1 tab 2023 Active 2023 55827 03124 1 Once daily By Mouth False Cholecalcif adalberto (vitamin D3) 50 mcg (2,000 unit) tablet [generic] 1 TAB By Mouth Once daily For SUPP 1 TAB 2023 Active 2023 63052 06968 1 Once daily By Mouth False Cetirizine 10 mg tablet [generic] 1 TAB By Mouth At bedtime For Allergies 1 TAB 2023 Active 2023 45324 39726 0 At bedtime By Mouth False Timolol maleate 0.25 % eye drops [generic] 1 drop Both Eyes Twice daily For glaucoma 1 drop 2023 0000 /0000 Active 2023 86637 53086 5 Twice daily Both Eyes False Alendronate 35 mg tablet [generic] 35mg By Mouth Every week For SIADH 35mg 08/31 Inactiv e 2023 34132 68894 5 Every week By Mouth False Lantus Solostar U-100 Insulin 100 unit/mL (3 mL) subcutaneou s pen 18 units Subcutaneous Every morning For DIABETES 18 units 08/25 Inactiv e 2023 53649 81003 0 Every morning Subcut aneous False Lantus Solostar U-100 Insulin 100 unit/mL (3 mL) subcutaneou s pen 18 units Subcutaneous Every morning For DIABETES 18 units 2023 Active 2023 96216 85189 0 Every morning Subcut aneous False Linezolid 600 mg tablet [generic] 600 mg By Mouth Every 12 hours For MRSA INFECTION L BKA 600 mg 08/28 Inactiv e 2023 03674 54457 1 Every 12 hours By Mouth False [...] order For Diabetes 08/31 Inactiv e 2023 13049 09032 9 4 times a day Subcut aneous False Cefpodoxime 200 mg tablet [generic] 400 mg By Mouth Twice daily For MRSA INFECTION L BKA 400 mg 08/28 Inactiv e 2023 56620 88823 0 Twice daily By Mouth False Brimonidine 0.1 % eye drops [generic] 1 drop Both Eyes Twice daily For glaucoma 1 drop 2023 Active 2023 39951 69443 0 Twice daily Both Eyes False Metoprolol succinate ER 50 mg tablet,exte nded release 24 hr [generic] 50 mg By Mouth Once daily HOLD FOR SBP <100, or pulse <60 For HTN 50 mg 2023 Active 2023 36554 25597 1 Once daily By Mouth False Amlodipine 2.5 mg tablet [generic] 2.5 mg By Mouth Once daily For HTN 2.5 mg 2023 Active 2023 14402 56945 5 Once daily By Mouth False Docusate sodium 100 mg capsule [generic] 100mg By Mouth Twice daily as needed For constipation HOLD FOR LOOSE STOOLS 100mg 2023 Active 2023 91272 92825 1 Twice daily as needed By Mouth False Atorvastati n 40 mg tablet [generic] 40mg By Mouth Once daily For HDL 40mg 08/26 Inactiv e 2023 29668 23672 5 Once daily By Mouth False Tylenol 325 mg tablet 2 tabs By Mouth Every 4 hours as needed For Pain DO NOT EXCEED 3000 MG APAP/24 Hours 2 tabs 2023 Active 2023 75299 78357 0 Every 4 hours as needed By Mouth False Tylenol 325 mg tablet 2 tabs By Mouth Every 4 hours as needed For Fever >100 DO NOT EXCEED 3000 MG APAP/24 Hours 2 tabs 2023 Active 2023 13401 86650 0 Every 4 hours as needed By Mouth False Dulcolax (bisacodyl) 10 mg rectal suppository One Suppository per rectum PRN if Milk of Magnisia ineffective. Give on day 5 of no BM 1 sup 2023 Active 2023 80193 35972 1 Daily as needed Rectal False Fleet Enema 19 gram-7 gram/118 mL Administer per rectum PRN one time if dulcolax suppository not effective. Give on day 6 of no BM 1 2023 Active 2023 84824 21613 6 Daily as needed Rectal False Dextrose 50 % in water (D50W) intravenous solution [generic] Dextrose 50% evonne 20-50 ml (slow push) Intravenous if Glucagon not effective after 15 minutes. CALL 911 for ED Evaluation. 50% evonne 2023 Active 2023 97124 98724 9 Intrav enous False Glucagon (HCl) Emergency Kit 1 mg solution for injection Administer Glucagon 1 mg Intramuscular if 15 minutes after GLucose Gel is administered Glucose remains less than 70 1 mg 2023 Active 2023 31176 56360 2 Intram uscula r False Glucose Gel 40 % oral gel [Dextrose] PRN If resident is unable to swallow (with or without symptoms) and Glucose results less than 70 give GLucose 40% Gel 1 tube orally - Recheck Glucose 15 minutes after administratio n. 1 tube 2023 Active 2023 02266 68123 8 By Mouth False Milk of Magnesia 400 mg/5 mL oral suspension [Magnesium hydroxide] PRN 30ml By Mouth Daily as needed for constipation one time daily if no BM, on day 4 of no BM (PRN refer to instructions) For Constipation 30 mL 2023 Active 2023 17628 86437 6 Daily as needed By Mouth False Atorvastati n 40 mg tablet [generic] 08/26 Inactiv e 2023 98425 78145 5 Atorvastati n 40 mg tablet [generic] 40mg By Mouth Once daily For HDL 40mg 2023 Active 2023 62820 72611 5 Once daily By Mouth False Insulin aspart (U-100) 100 unit/mL (3 mL) subcutaneou s pen [generic] 15 units Subcutaneous 1 time For dm 15 units 08/26 Inactiv e 2023 23289 90270 5 1 time Subcut aneous False Humalog KwikPen (U-100) Insulin 100 unit/mL subcutaneou s 15 units Subcutaneous 1 time For dm 15 units 08/27 Inactiv e 2023 92359 44926 9 1 time Subcut aneous False Linezolid 600 mg tablet [generic] 600 mg By Mouth Every 12 hours For MRSA INFECTION L BKA 600 mg 09/06 Active 2023 73630 92389 1 Every 12 hours By Mouth False Cefpodoxime 200 mg tablet [generic] 400 mg By Mouth Twice daily For MRSA INFECTION L BKA 400 mg 08/31 Inactiv e 2023 10244 04999 0 Twice daily By Mouth False Senna 8.6 mg tablet 8.6 mg By Mouth Once daily For Constipation 8.6 mg 2023 Active 2023 02274 66437 1 Once daily By Mouth False Humalog [...] abnormalities . Per Carb 2023 Active 2023 67017 96805 9 4 times a day Subcut aneous False Alendronate 35 mg tablet [generic] 08/31 Inactiv e 2023 36291 22906 5 Alendronate 35 mg tablet [generic] 35mg By Mouth Every week For Osteoporosis 35mg 202300 Active 2023 07561 09619 5 Every week By Mouth False Humalog KwikPen (U-100) Insulin 100 unit/mL subcutaneou s 08/31 Inactiv e 2023 62760 75014 9 MediHoney HCS 4 1/2in X 4 1/2in bandage Cleanse area with NSS, apply one medihoney hydrocolloid dressing, non adherent dressing, kerlix secure with paper tape daily. For wound stage III 1 2023 Active 2023 39338 02559 1 Once daily Juanya l False Problems Code Description Start Date End Date Status D64.9 Anemia, unspecified 08/25/2024 Activ e I25.10 Atherosclerotic hear t disease of [place] coronary artery without angina pectoris 08/25/2024 Active [...] weight Temperature SpO2 Blood Sugar Pulse Respirations 63243 004 89418 8 67.00 mm[Hg] - Sitting 145.00 mm[Hg] - Sitting 98.50 Forehead Scan 96.00 % 81.00/ min 16.00/min 84437 004 78241 2 67.00 mm[Hg] - Sitting 145.00 mm[Hg] - Sitting 98.50 Tympanic 81.00/ min 16.00/min 26723 004 45134 5 56.00 mm[Hg] - Sitting 142.00 mm[Hg] - Sitting 136.40 NI 100.20 Tympanic 96.00 % 92.00/ min 18.00/min 69999 004 61557 6 27069 004 61101 4 143.00 mg/dL 93692 004 74445 0 97.80 Tympanic 51358 005 84306 7 60.00 mm[Hg] - Sitting 140.00 mm[Hg] - Sitting 98.00 Tympanic 84.00/ min 18.00/min 07035 005 71629 0 63.00 mm[Hg] - Sitting 141.00 mm[Hg] - Sitting 98.20 Tympanic 92.00 % 63.00/ min 16.00/min 44521 005 63759 8 69.00 mm[Hg] - Sitting 106.00 mm[Hg] - Sitting 97.20 Tympanic 34662 005 22305 7 69.00/ min 16.00/min 53361 005 85998 3 69.00 mm[Hg] - Sitting 106.00 mm[Hg] - Sitting 98.20 Tympanic 69.00/ min 16.00/min 14305 005 94180 1 367.00 mg/dL 30286 005 07718 2 97.20 Tympanic 26883 005 09178 4 97.20 Tympanic 13184 005 39198 0 69.00 mm[Hg] - Sitting 106.00 mm[Hg] - Sitting 69.00/ min 41333 005 30024 3 452.00 mg/dL 95499 005 82203 3 452.00 mg/dL 64794 005 69507 5 352.00 mg/dL 08911 005 11118 3 352.00 mg/dL 71648 005 31157 7 98.20 Tympanic 33917 005 67036 3 101.00 mg/dL 00459 005 77662 8 101.00 mg/dL 42295 006 27056 4 66.00 mm[Hg] - Sitting 107.00 mm[Hg] - Sitting 98.00 Tympanic 66.00/ min 18.00/min 02394 006 84984 0 62.00 mm[Hg] - Sitting 162.00 mm[Hg] - Sitting 98.20 Tympanic 96.00 % 60.00/ min 16.00/min 48538 006 94900 4 62.00 mm[Hg] - Sitting 162.00 mm[Hg] - Sitting 98.00 Tympanic 70.00/ min 18.00/min 30737 006 76686 8 62.00 mm[Hg] - Sitting 162.00 mm[Hg] - Sitting 98.20 Tympanic 70.00/ min 18.00/min 17293 006 35326 2 66.00 mm[Hg] - Sitting 132.00 mm[Hg] - Sitting 98.60 Tympanic 74.00/ min 16.00/min 05151 006 40879 5 159.00 mg/dL 49893 006 13079 1 159.00 mg/dL 02862 006 40029 8 98.00 Tympanic 37446 006 92507 2 62.00 mm[Hg] - Sitting 162.00 mm[Hg] - Sitting 70.00/ min 36680 006 04123 7 264.00 mg/dL 17855 006 10909 7 264.00 mg/dL 41102 006 17146 4 196.00 mg/dL 05663 006 98249 3 98.20 Tympanic 31457 006 13776 6 271.00 mg/dL 35962 007 42926 3 97.20 Tympanic 50873 007 34304 2 63.00 mm[Hg] - Sitting 132.00 mm[Hg] - Sitting 98.50 Tympanic 94.00 % 66.00/ min 16.00/min 48053 007 56937 5 188.00 mg/dL 97216 007 44366 2 188.00 mg/dL 85551 007 07491 2 188.00 mg/dL 77369 007 03212 7 97.20 Tympanic 33984 007 40445 6 97.20 Tympanic 51690 007 87701 5 67.00 mm[Hg] - Sitting 152.00 mm[Hg] - Sitting 68.00/ min 73062 007 04720 0 141.00 mg/dL 14955 007 77963 3 141.00 mg/dL 54422 007 60112 1 366.00 mg/dL 97849 007 62732 7 366.00 mg/dL 91440 007 72865 7 98.00 Tympanic 88626 007 06405 6 324.00 mg/dL 35685 007 24041 3 98.00 Tympanic 00779 007 11571 7 324.00 mg/dL 55703 008 62275 0 98.00 Tympanic 07963 008 26784 2 97.90 Tympanic 67737 008 54528 0 98.20 Tympanic 66840 008 67180 0 73.00 mm[Hg] - Sitting 156.00 mm[Hg] - Sitting 98.60 Tympanic 99.00 % 66.00/ min 20.00/min 82284 008 63834 5 137.00 mg/dL 76369 008 48278 7 137.00 mg/dL 39576 008 40603 2 97.90 Tympanic 01487 008 41114 1 137.00 mg/dL 66695 008 70412 8 97.90 Tympanic 76410 008 54101 5 67.00 mm[Hg] - Sitting 124.00 /min 61381 008 17279 6 212.00 mg/dL 46637 008 08875 6 212.00 mg/dL 06254 008 90588 9 317.00 mg/dL 17496 008 03452 4 317.00 mg/dL 43755 008 19759 8 252.00 mg/dL 35003 008 30216 0 98.70 Tympanic 23311 008 43026 7 252.00 mg/dL 48300 008 12060 3 98.70 Tympanic 31345 009 88492 9 98.70 Tympanic 22510 009 87218 3 98.20 Tympanic 92160 009 46255 5 98.40 Tympanic 43414 009 69213 5 57.00 mm[Hg] - Sitting 129.00 mm[Hg] - Sitting 98.30 Tympanic 97.00 % 65.00/ min 18.00/min 38441 009 31134 1 255.00 mg/dL 78663 009 22919 4 255.00 mg/dL 20068 009 27046 5 98.20 Tympanic 38170 009 83483 0 255.00 mg/dL 37802 009 03445 0 98.20 Tympanic 43513 009 95148 4 63.00 mm[Hg] - Lying Down 102.00 mm[Hg] - Lying Down 58.00/ min 11463 009 54165 0 167.00 mg/dL 49109 009 06272 1 167.00 mg/dL 33931 009 79813 2 164.00 mg/dL 83467 009 92552 1 164.00 mg/dL 27432 009 05549 5 208.00 mg/dL 93139 010 29833 3 98.40 Tympanic 34006 010 74697 5 98.40 Tympanic 20657 010 11244 7 66 [place] [address] 010 36222 4 60.00 mm[Hg] - Sitting 143.00 mm[Hg] - Sitting 98.90 Tympanic 98.00 % 67.00/ min 18.00/min 44055 010 25973 2 214.00 mg/dL 46947 010 79044 0 214.00 mg/dL 83796 010 08639 7 214.00 mg/dL 33181 010 83620 6 64.00 mm[Hg] - Sitting 110.00 mm[Hg] - Sitting 72.00/ min 01067 010 03362 7 98.40 Tympanic 98915 010 54039 1 212.00 mg/dL 40987 010 44866 2 212.00 mg/dL 34057 010 35798 1 115.00 mg/dL 57526 010 28292 0 115.00 mg/dL 77769 010 70160 4 98.50 Tympanic 49027 010 79565 4 150.00 mg/dL 37318 010 97892 0 150.00 mg/dL Immunizations Vaccine Date Status COVID-19 09/20/2023 Completed Other 10/08/2023 Completed Shingles 05/27/2011 Completed Tetanus 04/13/2022 Completed TDaP 04/13/2022 Completed Shingles 2 10/05/2018 Completed
--- OUTSIDE RECORDS SUMMARY | 2024-10-03 11:16 | External Medical Summary | Continuity Of Care Document ---
Author Name Unknown Address [address] [address] Organization [facility] () Care Team Providers Care Regulatory Assistant Name Role Phone DO Machado Amy Primary Care Provider [phone] Allergies Allergy Reaction Start Date End Date [...] 3 0.1 mL 08/29 Inactiv e 2023 63047 55776 0 1 time Intrad ermal False Tubersol 5 tub. unit/0.1 mL intradermal injection solution [Tuberculin PPD] 0.1mL Intradermal 1 time For PPD 2nd Step Give 2nd Step PPD Day 1 and Read results Day 3 (schedule 7 days after 1st READ) 0.1mL 09/08 Active 2023 27262 15798 0 1 time Intrad ermal False Humalog [...] order For Diabetes 08/25 Inactiv e 2023 74748 86243 9 4 times a day Subcut aneous False Aspirin 325 mg tablet [generic] 325 By Mouth Twice daily For Anticoagulati on 325 09/25 Active 2023 95467 20193 1 Twice daily By Mouth False Ferrous sulfate 325 mg (65 mg iron) tablet [generic] 325 By Mouth Once daily For anemia 325 2023 Active 2023 59126 21157 5 Once daily By Mouth False Linezolid 600 mg tablet [generic] 600 mg By Mouth Every 12 hours For MRSA INFECTION L BKA 600 mg 08/25 Inactiv e 2023 94047 66668 1 Every 12 hours By Mouth False Cefpodoxime 200 mg tablet [generic] 400 mg By Mouth Twice daily For MRSA INFECTION L BKA 400 mg 08/25 Inactiv e 2023 43066 94985 0 Twice daily By Mouth False Coenzyme Q10 100 mg tablet [generic] 100 mg By Mouth Once daily For SUPP 100 mg 2023 Active 2023 88663 61312 0 Once daily By Mouth False Levothyroxi ne 50 mcg tablet [generic] 50mcg By Mouth Once daily For hypothyroidis m 50mcg 2023 Active 2023 09816 76440 0 Once daily By Mouth False One A Day Men Complete 240 mcg-25 mcg-300 mcg tablet 1 tab By Mouth Once daily For supplement 1 tab 2023 Active 2023 16016 85234 1 Once daily By Mouth False Cholecalcif adalberto (vitamin D3) 50 mcg (2,000 unit) tablet [generic] 1 TAB By Mouth Once daily For SUPP 1 TAB 2023 Active 2023 38068 17542 1 Once daily By Mouth False Cetirizine 10 mg tablet [generic] 1 TAB By Mouth At bedtime For Allergies 1 TAB 2023 Active 2023 80171 94410 0 At bedtime By Mouth False Timolol maleate 0.25 % eye drops [generic] 1 drop Both Eyes Twice daily For glaucoma 1 drop 2023 0000 /0000 Active 2023 59628 95993 5 Twice daily Both Eyes False Alendronate 35 mg tablet [generic] 35mg By Mouth Every week For SIADH 35mg 08/31 Inactiv e 2023 87107 37144 5 Every week By Mouth False Lantus Solostar U-100 Insulin 100 unit/mL (3 mL) subcutaneou s pen 18 units Subcutaneous Every morning For DIABETES 18 units 08/25 Inactiv e 2023 95743 43489 0 Every morning Subcut aneous False Lantus Solostar U-100 Insulin 100 unit/mL (3 mL) subcutaneou s pen 18 units Subcutaneous Every morning For DIABETES 18 units 2023 Active 2023 15925 01099 0 Every morning Subcut aneous False Linezolid 600 mg tablet [generic] 600 mg By Mouth Every 12 hours For MRSA INFECTION L BKA 600 mg 08/28 Inactiv e 2023 88026 74182 1 Every 12 hours By Mouth False [...] order For Diabetes 08/31 Inactiv e 2023 37708 94502 9 4 times a day Subcut aneous False Cefpodoxime 200 mg tablet [generic] 400 mg By Mouth Twice daily For MRSA INFECTION L BKA 400 mg 08/28 Inactiv e 2023 84240 25962 0 Twice daily By Mouth False Brimonidine 0.1 % eye drops [generic] 1 drop Both Eyes Twice daily For glaucoma 1 drop 2023 Active 2023 75371 37226 0 Twice daily Both Eyes False Metoprolol succinate ER 50 mg tablet,exte nded release 24 hr [generic] 50 mg By Mouth Once daily HOLD FOR SBP <100, or pulse <60 For HTN 50 mg 2023 Active 2023 17214 57336 1 Once daily By Mouth False Amlodipine 2.5 mg tablet [generic] 2.5 mg By Mouth Once daily For HTN 2.5 mg 2023 Active 2023 83563 28625 5 Once daily By Mouth False Docusate sodium 100 mg capsule [generic] 100mg By Mouth Twice daily as needed For constipation HOLD FOR LOOSE STOOLS 100mg 2023 Active 2023 64908 79274 1 Twice daily as needed By Mouth False Atorvastati n 40 mg tablet [generic] 40mg By Mouth Once daily For HDL 40mg 08/26 Inactiv e 2023 07696 11411 5 Once daily By Mouth False Tylenol 325 mg tablet 2 tabs By Mouth Every 4 hours as needed For Pain DO NOT EXCEED 3000 MG APAP/24 Hours 2 tabs 2023 Active 2023 12892 41586 0 Every 4 hours as needed By Mouth False Tylenol 325 mg tablet 2 tabs By Mouth Every 4 hours as needed For Fever >100 DO NOT EXCEED 3000 MG APAP/24 Hours 2 tabs 2023 Active 2023 10196 90489 0 Every 4 hours as needed By Mouth False Dulcolax (bisacodyl) 10 mg rectal suppository One Suppository per rectum PRN if Milk of Magnisia ineffective. Give on day 5 of no BM 1 sup 2023 Active 2023 58829 32423 1 Daily as needed Rectal False Fleet Enema 19 gram-7 gram/118 mL Administer per rectum PRN one time if dulcolax suppository not effective. Give on day 6 of no BM 1 2023 Active 2023 48637 42324 6 Daily as needed Rectal False Dextrose 50 % in water (D50W) intravenous solution [generic] Dextrose 50% evonne 20-50 ml (slow push) Intravenous if Glucagon not effective after 15 minutes. CALL 911 for ED Evaluation. 50% evonne 2023 Active 2023 33865 92748 9 Intrav enous False Glucagon (HCl) Emergency Kit 1 mg solution for injection Administer Glucagon 1 mg Intramuscular if 15 minutes after GLucose Gel is administered Glucose remains less than 70 1 mg 2023 Active 2023 77534 63597 2 Intram uscula r False Glucose Gel 40 % oral gel [Dextrose] PRN If resident is unable to swallow (with or without symptoms) and Glucose results less than 70 give GLucose 40% Gel 1 tube orally - Recheck Glucose 15 minutes after administratio n. 1 tube 2023 Active 2023 80058 67921 8 By Mouth False Milk of Magnesia 400 mg/5 mL oral suspension [Magnesium hydroxide] PRN 30ml By Mouth Daily as needed for constipation one time daily if no BM, on day 4 of no BM (PRN refer to instructions) For Constipation 30 mL 2023 Active 2023 67034 23453 6 Daily as needed By Mouth False Atorvastati n 40 mg tablet [generic] 08/26 Inactiv e 2023 79250 56113 5 Atorvastati n 40 mg tablet [generic] 40mg By Mouth Once daily For HDL 40mg 2023 Active 2023 25822 97599 5 Once daily By Mouth False Insulin aspart (U-100) 100 unit/mL (3 mL) subcutaneou s pen [generic] 15 units Subcutaneous 1 time For dm 15 units 08/26 Inactiv e 2023 18226 18527 5 1 time Subcut aneous False Humalog KwikPen (U-100) Insulin 100 unit/mL subcutaneou s 15 units Subcutaneous 1 time For dm 15 units 08/27 Inactiv e 2023 48422 41511 9 1 time Subcut aneous False Linezolid 600 mg tablet [generic] 600 mg By Mouth Every 12 hours For MRSA INFECTION L BKA 600 mg 09/06 Active 2023 53701 65614 1 Every 12 hours By Mouth False Cefpodoxime 200 mg tablet [generic] 400 mg By Mouth Twice daily For MRSA INFECTION L BKA 400 mg 08/31 Inactiv e 2023 63225 91024 0 Twice daily By Mouth False Senna 8.6 mg tablet 8.6 mg By Mouth Once daily For Constipation 8.6 mg 2023 Active 2023 26732 50441 1 Once daily By Mouth False Humalog [...] abnormalities . Per Carb 2023 Active 2023 07611 20756 9 4 times a day Subcut aneous False Alendronate 35 mg tablet [generic] 08/31 Inactiv e 2023 99669 21359 5 Alendronate 35 mg tablet [generic] 35mg By Mouth Every week For Osteoporosis 35mg 2023 Active 2023 61338 65774 5 Every week By Mouth False ProSource 10 gram-100 kcal/30 mL oral liquid 30 ml By Mouth Once daily For wound healing 30 ml 2023 Active 2023 57801 41762 2 Once daily By Mouth False Humalog KwikPen (U-100) Insulin 100 unit/mL subcutaneou s 08/31 Inactiv e 2023 29786 72347 9 MediHoney HCS 4 1/2in X 4 1/2in bandage Cleanse area with NSS, apply one medihoney hydrocolloid dressing, non adherent dressing, kerlix secure with paper tape daily. For wound stage III 1 2023 Active 2023 12288 76278 1 Once daily Topica l False Problems Code Description Start Date End Date Status D64.9 Anemia, unspecified 08/25/2024 Activ e I25.10 Atherosclerotic hear t disease of [place] coronary artery without angina pectoris 08/25/2024 [...] weight Temperature SpO2 Blood Sugar Pulse Respirations 36059 8 67.00 mm[Hg] - Sitting 145.00 mm[Hg] - Sitting 98.50 Forehead Scan 96.00 % 81.00/ min 16.00/min 61309 004 44461 2 67.00 mm[Hg] - Sitting 145.00 mm[Hg] - Sitting 98.50 Tympanic 81.00/ min 16.00/min 84631 004 33605 5 56.00 mm[Hg] - Sitting 142.00 mm[Hg] - Sitting 136.40 NI 100.20 Tympanic 96.00 % 92.00/ min 18.00/min 51125 004 08528 6 27241 004 74112 4 143.00 mg/dL 004 28246 0 97.80 Tympanic 68577 005 19033 7 60.00 mm[Hg] - Sitting 140.00 mm[Hg] - Sitting 98.00 Tympanic 84.00/ min 18.00/min 85844 005 45945 0 63.00 mm[Hg] - Sitting 141.00 mm[Hg] - Sitting 98.20 Tympanic 92.00 % 63.00/ min 16.00/min 41834 005 71100 8 69.00 mm[Hg] - Sitting 106.00 mm[Hg] - Sitting 97.20 Tympanic 62306 005 07620 7 69.00/ min 16.00/min 19316 005 11356 3 69.00 mm[Hg] - Sitting 106.00 mm[Hg] - Sitting 98.20 Tympanic 69.00/ min 16.00/min 82600 005 96277 1 367.00 mg/dL 38286 005 44288 2 97.20 Tympanic 29020 005 04358 4 97.20 Tympanic 14593 005 48436 0 69.00 mm[Hg] - Sitting 106.00 mm[Hg] - Sitting 69.00/ min 06480 005 40572 3 452.00 mg/dL 18466 005 92611 3 452.00 mg/dL 46482 005 64647 5 352.00 mg/dL 72355 005 12194 3 352.00 mg/dL 57695 005 90982 7 98.20 Tympanic 95577 005 14219 3 101.00 mg/dL 13900 005 8 101.00 mg/dL 79009 006 30791 4 66.00 mm[Hg] - Sitting 107.00 mm[Hg] - Sitting 98.00 Tympanic 66.00/ min 18.00/min 01898 006 76729 0 62.00 mm[Hg] - Sitting 162.00 mm[Hg] - Sitting 98.20 Tympanic 96.00 % 60.00/ min 16.00/min 58893 006 14988 4 62.00 mm[Hg] - Sitting 162.00 mm[Hg] - Sitting 98.00 Tympanic 70.00/ min 18.00/min 41156 006 50444 8 62.00 mm[Hg] - Sitting 162.00 mm[Hg] - Sitting 98.20 Tympanic 70.00/ min 18.00/min 95398 006 47006 2 66.00 mm[Hg] - Sitting 132.00 mm[Hg] - Sitting 98.60 Tympanic 74.00/ min 16.00/min 85524 006 66032 5 159.00 mg/dL 65348 006 62038 1 159.00 mg/dL 16391 006 56320 8 98.00 Tympanic 07764 006 01163 2 62.00 mm[Hg] - Sitting 162.00 mm[Hg] - Sitting 70.00/ min 28146 006 20837 7 264.00 mg/dL 79963 006 97262 7 264.00 mg/dL 12328 006 74214 4 196.00 mg/dL 19814 006 52962 3 98.20 Tympanic 15719 006 30473 6 271.00 mg/dL 78238 007 29446 3 97.20 Tympanic 94811 007 54584 2 63.00 mm[Hg] - Sitting 132.00 mm[Hg] - Sitting 98.50 Tympanic 94.00 % 66.00/ min 16.00/min 13066 007 34678 5 188.00 mg/dL 48269 007 86985 2 188.00 mg/dL 92145 007 47775 2 188.00 mg/dL 83761 007 94611 7 97.20 Tympanic 73167 007 13395 6 97.20 Tympanic 42658 007 42792 5 67.00 mm[Hg] - Sitting 152.00 mm[Hg] - Sitting 68.00/ min 36729 007 21492 0 141.00 mg/dL 19548 007 01707 3 141.00 mg/dL 35614 007 13676 1 366.00 mg/dL 59419 007 68107 7 366.00 mg/dL 06579 007 83002 7 98.00 Tympanic 96263 007 02645 6 324.00 mg/dL 77015 007 20097 3 98.00 Tympanic 84982 007 46695 7 324.00 mg/dL 50837 008 05421 0 98.00 Tympanic 27998 008 80592 2 97.90 Tympanic 66433 008 38872 0 98.20 Tympanic 92286 008 01112 0 73.00 mm[Hg] - Sitting 156.00 mm[Hg] - Sitting 98.60 Tympanic 99.00 % 66.00/ min 20.00/min 45384 008 07937 5 137.00 mg/dL 78507 008 51789 7 137.00 mg/dL 63437 008 81064 2 97.90 Tympanic 63218 008 97193 1 137.00 mg/dL 80329 008 13796 8 97.90 Tympanic 58226 008 59828 5 67.00 mm[Hg] - Sitting 124.00 /min 84739 008 95593 6 212.00 mg/dL 82172 008 90661 6 212.00 mg/dL 38301 008 71387 9 317.00 mg/dL 84712 008 41128 4 317.00 mg/dL 38424 008 22218 8 252.00 mg/dL 94015 008 20772 0 98.70 Tympanic 79038 008 58024 7 252.00 mg/dL 05250 008 13369 3 98.70 Tympanic 76065 009 87481 9 98.70 Tympanic 36464 009 40120 3 98.20 Tympanic 92151 009 71534 5 98.40 Tympanic 61964 009 51490 5 57.00 mm[Hg] - Sitting 129.00 mm[Hg] - Sitting 98.30 Tympanic 97.00 % 65.00/ min 18.00/min 03780 009 35542 1 255.00 mg/dL 95115 009 02846 4 255.00 mg/dL 94884 009 65258 5 98.20 Tympanic 70294 009 76094 0 255.00 mg/dL 73021 009 56978 0 98.20 Tympanic 14162 009 71297 4 63.00 mm[Hg] - Lying Down 102.00 mm[Hg] - Lying Down 58.00/ min 92708 009 80586 0 167.00 mg/dL 92597 009 31287 1 167.00 mg/dL 51930 009 04999 2 164.00 mg/dL 99617 009 13206 1 164.00 mg/dL 81981 009 02859 5 208.00 mg/dL 21057 010 85409 3 98.40 Tympanic 96133 010 53249 5 98.40 Tympanic 31865 010 93046 7 66 NI 32487 010 74656 4 60.00 mm[Hg] - Sitting 143.00 mm[Hg] - Sitting 98.90 Tympanic 98.00 % 67.00/ min 18.00/min 27599 010 68668 2 214.00 mg/dL 14161 010 30582 0 214.00 mg/dL 43557 010 47190 7 214.00 mg/dL 79211 010 60640 6 64.00 mm[Hg] - Sitting 110.00 mm[Hg] - Sitting 72.00/ min 45732 010 66807 7 98.40 Tympanic 67718 010 21971 1 212.00 mg/dL 08701 010 81907 2 212.00 mg/dL 22186 010 25972 1 115.00 mg/dL 77210 010 57534 0 115.00 mg/dL 65230 010 47503 4 98.50 Tympanic 01345 010 01749 4 150.00 mg/dL 20826 010 16477 0 150.00 mg/dL 39054 011 20841 7 290.00 mg/dL 30552 011 75874 2 290.00 mg/dL 22550 011 19050 2 290.00 mg/dL 03276 011 37871 7 54.00 mm[Hg] - Sitting 136.00 mm[Hg] - Sitting 101.00 /min 78373 011 26654 7 98.60 Tympanic Immunizations Vaccine Date Status COVID-19 09/20/2023 Completed Other 10/08/2023 Completed Shingles 05/27/2011 Completed Tetanus 04/13/2022 Completed TDaP 04/13/2022 Completed Shingles 2 10/05/2018 Completed
--- OUTSIDE RECORDS SUMMARY | 2024-10-03 11:16 | External Medical Summary | Continuity Of Care Document ---
Author Name Unknown Address [address] [address] Organization [facility] () Care Team Providers Care Brake Assembler Name Role Phone DO Machado Amy Primary Care Provider [phone] Allergies Allergy Reaction Start Date End Date [...] 3 0.1 mL 08/29 Inactiv e 2023 51931 28846 0 1 time Intrad ermal False Tubersol 5 tub. unit/0.1 mL intradermal injection solution [Tuberculin PPD] 0.1mL Intradermal 1 time For PPD 2nd Step Give 2nd Step PPD Day 1 and Read results Day 3 (schedule 7 days after 1st READ) 0.1mL 09/08 Active 2023 10943 30161 0 1 time Intrad ermal False Humalog [...] order For Diabetes 08/25 Inactiv e 2023 78798 91124 9 4 times a day Subcut aneous False Aspirin 325 mg tablet [generic] 325 By Mouth Twice daily For Anticoagulati on 325 09/25 Active 2023 95817 68191 1 Twice daily By Mouth False Ferrous sulfate 325 mg (65 mg iron) tablet [generic] 325 By Mouth Once daily For anemia 325 2023 Active 2023 83728 84898 5 Once daily By Mouth False Linezolid 600 mg tablet [generic] 600 mg By Mouth Every 12 hours For MRSA INFECTION L BKA 600 mg 08/25 Inactiv e 2023 77762 56449 1 Every 12 hours By Mouth False Cefpodoxime 200 mg tablet [generic] 400 mg By Mouth Twice daily For MRSA INFECTION L BKA 400 mg 08/25 Inactiv e 2023 45482 09178 0 Twice daily By Mouth False Coenzyme Q10 100 mg tablet [generic] 100 mg By Mouth Once daily For SUPP 100 mg 2023 Active 2023 22941 00138 0 Once daily By Mouth False Levothyroxi ne 50 mcg tablet [generic] 50mcg By Mouth Once daily For hypothyroidis m 50mcg 2023 Active 2023 55514 71034 0 Once daily By Mouth False One A Day Men Complete 240 mcg-25 mcg-300 mcg tablet 1 tab By Mouth Once daily For supplement 1 tab 2023 Active 2023 12972 19164 1 Once daily By Mouth False Cholecalcif adalberto (vitamin D3) 50 mcg (2,000 unit) tablet [generic] 1 TAB By Mouth Once daily For SUPP 1 TAB 2023 Active 2023 93837 35403 1 Once daily By Mouth False Cetirizine 10 mg tablet [generic] 1 TAB By Mouth At bedtime For Allergies 1 TAB 2023 Active 2023 41395 87619 0 At bedtime By Mouth False Timolol maleate 0.25 % eye drops [generic] 1 drop Both Eyes Twice daily For glaucoma 1 drop 2023 Active 2023 88641 56141 5 Twice daily Both Eyes False Alendronate 35 mg tablet [generic] 35mg By Mouth Every week For SIADH 35mg 2023 Active 2023 59871 95621 5 Every week By Mouth False Lantus Solostar U-100 Insulin 100 unit/mL (3 mL) subcutaneou s pen 18 units Subcutaneous Every morning For DIABETES 18 units 08/25 Inactiv e 2023 56908 92871 0 Every morning Subcut aneous False Lantus Solostar U-100 Insulin 100 unit/mL (3 mL) subcutaneou s pen 18 units Subcutaneous Every morning For DIABETES 18 units 2023 Active 2023 59256 57215 0 Every morning Subcut aneous False Linezolid 600 mg tablet [generic] 600 mg By Mouth Every 12 hours For MRSA INFECTION L BKA 600 mg 08/28 Inactiv e 2023 64809 65662 1 Every 12 hours By Mouth False [...] order For Diabetes 08/31 Inactiv e 2023 43557 38864 9 4 times a day Subcut aneous False Cefpodoxime 200 mg tablet [generic] 400 mg By Mouth Twice daily For MRSA INFECTION L BKA 400 mg 08/28 Inactiv e 2023 51461 20408 0 Twice daily By Mouth False Brimonidine 0.1 % eye drops [generic] 1 drop Both Eyes Twice daily For glaucoma 1 drop 2023 Active 2023 11273 07317 0 Twice daily Both Eyes False Metoprolol succinate ER 50 mg tablet,exte nded release 24 hr [generic] 50 mg By Mouth Once daily HOLD FOR SBP <100, or pulse <60 For HTN 50 mg 2023 Active 2023 09436 55941 1 Once daily By Mouth False Amlodipine 2.5 mg tablet [generic] 2.5 mg By Mouth Once daily For HTN 2.5 mg 2023 Active 2023 83229 40663 5 Once daily By Mouth False Docusate sodium 100 mg capsule [generic] 100mg By Mouth Twice daily as needed For constipation HOLD FOR LOOSE STOOLS 100mg 2023 Active 2023 94583 58429 1 Twice daily as needed By Mouth False Atorvastati n 40 mg tablet [generic] 40mg By Mouth Once daily For HDL 40mg 08/26 Inactiv e 2023 64690 52636 5 Once daily By Mouth False Tylenol 325 mg tablet 2 tabs By Mouth Every 4 hours as needed For Pain DO NOT EXCEED 3000 MG APAP/24 Hours 2 tabs 2023 Active 2023 03836 64809 0 Every 4 hours as needed By Mouth False Tylenol 325 mg tablet 2 tabs By Mouth Every 4 hours as needed For Fever >100 DO NOT EXCEED 3000 MG APAP/24 Hours 2 tabs 2023 Active 2023 65526 28116 0 Every 4 hours as needed By Mouth False Dulcolax (bisacodyl) 10 mg rectal suppository One Suppository per rectum PRN if Milk of Magnisia ineffective. Give on day 5 of no BM 1 sup 2023 Active 2023 25160 73670 1 Daily as needed Rectal False Fleet Enema 19 gram-7 gram/118 mL Administer per rectum PRN one time if dulcolax suppository not effective. Give on day 6 of no BM 1 2023 Active 2023 94837 74969 6 Daily as needed Rectal False Dextrose 50 % in water (D50W) intravenous solution [generic] Dextrose 50% evonne 20-50 ml (slow push) Intravenous if Glucagon not effective after 15 minutes. CALL 911 for ED Evaluation. 50% evonne 2023 Active 2023 78131 92765 9 Intrav enous False Glucagon (HCl) Emergency Kit 1 mg solution for injection Administer Glucagon 1 mg Intramuscular if 15 minutes after GLucose Gel is administered Glucose remains less than 70 1 mg 2023 Active 2023 88276 07090 2 Intram uscula r False Glucose Gel 40 % oral gel [Dextrose] PRN If resident is unable to swallow (with or without symptoms) and Glucose results less than 70 give GLucose 40% Gel 1 tube orally - Recheck Glucose 15 minutes after administratio n. 1 tube 2023 Active 2023 13887 16062 8 By Mouth False Milk of Magnesia 400 mg/5 mL oral suspension [Magnesium hydroxide] PRN 30ml By Mouth Daily as needed for constipation one time daily if no BM, on day 4 of no BM (PRN refer to instructions) For Constipation 30 mL 2023 Active 2023 87144 37188 6 Daily as needed By Mouth False Atorvastati n 40 mg tablet [generic] 08/26 Inactiv e 2023 64683 06051 5 Atorvastati n 40 mg tablet [generic] 40mg By Mouth Once daily For HDL 40mg 2023 Active 2023 71512 70474 5 Once daily By Mouth False Insulin aspart (U-100) 100 unit/mL (3 mL) subcutaneou s pen [generic] 15 units Subcutaneous 1 time For dm 15 units 08/26 Inactiv e 2023 05000 01644 5 1 time Subcut aneous False Humalog KwikPen (U-100) Insulin 100 unit/mL subcutaneou s 15 units Subcutaneous 1 time For dm 15 units 08/27 Inactiv e 2023 91000 12837 9 1 time Subcut aneous False Linezolid 600 mg tablet [generic] 600 mg By Mouth Every 12 hours For MRSA INFECTION L BKA 600 mg 09/06 Active 2023 77443 17262 1 Every 12 hours By Mouth False Cefpodoxime 200 mg tablet [generic] 400 mg By Mouth Twice daily For MRSA INFECTION L BKA 400 mg 08/31 Inactiv e 2023 59737 03743 0 Twice daily By Mouth False Senna 8.6 mg tablet 8.6 mg By Mouth Once daily For Constipation 8.6 mg 2023 Active 2023 17220 95397 1 Once daily By Mouth False Humalog [...] abnormalities . Per Carb 2023 Active 2023 08221 51519 9 4 times a day Subcut aneous False Humalog KwikPen (U-100) Insulin 100 unit/mL subcutaneou s 08/31 Inactiv e 2023 87262 54816 9 MediHoney HCS 4 1/2in X 4 1/2in bandage Cleanse area with NSS, apply one mediney hydrocolloid dressing, non adherent dressing, kerlix secure with paper tape daily. For wound stage III 1 2023 Active 2023 54336 87016 1 Once daily Topica l False Problems Code Description Start Date End Date Status D64.9 Anemia, unspecified 08/25/2024 Activ e I25.10 Atherosclerotic hear t disease of [place] coronary artery without angina pectoris 08/25/2024 Active [...] weight Temperature SpO2 Blood Sugar Pulse Respirations 92118 8 67.00 mm[Hg] - Sitting 145.00 mm[Hg] - Sitting 98.50 Forehead Scan 96.00 % 81.00/ min 16.00/min 40786 2 67.00 mm[Hg] - Sitting 145.00 mm[Hg] - Sitting 98.50 Tympanic 81.00/ min 16.00/min 10250 004 09264 5 56.00 mm[Hg] - Sitting 142.00 mm[Hg] - Sitting 136.40 NI 100.20 Tympanic 96.00 % 92.00/ min 18.00/min 90388 004 05659 6 45217 004 26126 4 143.00 mg/dL 08526 004 43654 0 97.80 Tympanic 43644 005 79971 7 60.00 mm[Hg] - Sitting 140.00 mm[Hg] - Sitting 98.00 Tympanic 84.00/ min 18.00/min 68994 005 69663 0 63.00 mm[Hg] - Sitting 141.00 mm[Hg] - Sitting 98.20 Tympanic 92.00 % 63.00/ min 16.00/min 25696 005 71442 8 69.00 mm[Hg] - Sitting 106.00 mm[Hg] - Sitting 97.20 Tympanic 35240 005 23395 7 69.00/ min 16.00/min 77346 005 74954 3 69.00 mm[Hg] - Sitting 106.00 mm[Hg] - Sitting 98.20 Tympanic 69.00/ min 16.00/min 47236 005 65649 1 367.00 mg/dL 90354 005 99322 2 97.20 Tympanic 80438 005 08392 4 97.20 Tympanic 47301 005 83995 0 69.00 mm[Hg] - Sitting 106.00 mm[Hg] - Sitting 69.00/ min 88963 005 48613 3 452.00 mg/dL 33942 005 24295 3 452.00 mg/dL 85141 005 33613 5 352.00 mg/dL 93949 005 22095 3 352.00 mg/dL 18503 005 80018 7 98.20 Tympanic 23396 005 83665 3 101.00 mg/dL 20928 005 06614 8 101.00 mg/dL 60547 006 51386 4 66.00 mm[Hg] - Sitting 107.00 mm[Hg] - Sitting 98.00 Tympanic 66.00/ min 18.00/min 85568 006 11533 0 62.00 mm[Hg] - Sitting 162.00 mm[Hg] - Sitting 98.20 Tympanic 96.00 % 60.00/ min 16.00/min 55184 006 67533 4 62.00 mm[Hg] - Sitting 162.00 mm[Hg] - Sitting 98.00 Tympanic 70.00/ min 18.00/min 73458 006 02796 8 62.00 mm[Hg] - Sitting 162.00 mm[Hg] - Sitting 98.20 Tympanic 70.00/ min 18.00/min 24345 006 27172 2 66.00 mm[Hg] - Sitting 132.00 mm[Hg] - Sitting 98.60 Tympanic 74.00/ min 16.00/min 05577 006 16717 5 159.00 mg/dL 56334 006 30307 1 159.00 mg/dL 55187 006 76916 8 98.00 Tympanic 22305 006 25242 2 62.00 mm[Hg] - Sitting 162.00 mm[Hg] - Sitting 70.00/ min 50068 006 42303 7 264.00 mg/dL 31933 006 18054 7 264.00 mg/dL 76743 006 69831 4 196.00 mg/dL 46790 006 45191 3 98.20 Tympanic 29570 006 43823 6 271.00 mg/dL 16155 007 78225 3 97.20 Tympanic 19835 007 93008 2 63.00 mm[Hg] - Sitting 132.00 mm[Hg] - Sitting 98.50 Tympanic 94.00 % 66.00/ min 16.00/min 62496 007 29863 5 188.00 mg/dL 10596 007 28757 2 188.00 mg/dL 76772 007 33544 2 188.00 mg/dL 65540 007 36847 7 97.20 Tympanic 14201 007 90231 6 97.20 Tympanic 17706 007 61825 5 67.00 mm[Hg] - Sitting 152.00 mm[Hg] - Sitting 68.00/ min 94618 007 74817 0 141.00 mg/dL 64346 007 19807 3 141.00 mg/dL 55678 007 96567 1 366.00 mg/dL 31121 007 38507 7 366.00 mg/dL 66244 007 71897 7 98.00 Tympanic 84617 007 83032 6 324.00 mg/dL 43083 007 40543 3 98.00 Tympanic 31279 007 44572 7 324.00 mg/dL 37933 008 96570 0 98.00 Tympanic 21543 008 25662 2 97.90 Tympanic 39370 008 38761 0 98.20 Tympanic 38558 008 89234 0 73.00 mm[Hg] - Sitting 156.00 mm[Hg] - Sitting 98.60 Tympanic 99.00 % 66.00/ min 20.00/min 06965 008 60489 5 137.00 mg/dL 71692 008 59045 7 137.00 mg/dL 79571 008 25526 2 97.90 Tympanic 05653 008 53717 1 137.00 mg/dL 99267 008 11758 8 97.90 Tympanic 31675 008 60876 5 67.00 mm[Hg] - Sitting 124.00 /min 48464 008 04248 6 212.00 mg/dL 13581 008 56915 6 212.00 mg/dL 57748 008 13835 9 317.00 mg/dL 31377 008 50935 4 317.00 mg/dL 19021 008 19218 8 252.00 mg/dL 09921 008 89312 0 98.70 Tympanic 29612 008 68207 7 252.00 mg/dL 72883 008 03235 3 98.70 Tympanic 69409 009 37469 9 98.70 Tympanic 80790 009 91043 3 98.20 Tympanic 01505 009 08489 5 98.40 Tympanic 15718 009 31704 5 57.00 mm[Hg] - Sitting 129.00 mm[Hg] - Sitting 98.30 Tympanic 97.00 % 65.00/ min 18.00/min 54705 009 42539 1 255.00 mg/dL 46161 009 15662 4 255.00 mg/dL 62617 009 58420 5 98.20 Tympanic 59257 009 83960 0 255.00 mg/dL 37879 009 66430 0 98.20 Tympanic 01113 009 82620 4 63.00 mm[Hg] - Lying Down 102.00 mm[Hg] - Lying Down 58.00/ min 14931 009 28120 0 167.00 mg/dL 64616 009 42797 1 167.00 mg/dL 09168 009 49898 2 164.00 mg/dL 21179 009 49112 1 164.00 mg/dL 09391 009 31496 5 208.00 mg/dL 69974 010 98788 3 98.40 Tympanic 79871 010 20972 5 98.40 Tympanic 14528 010 95989 7 66 NI 03774 010 13730 4 60.00 mm[Hg] - Sitting 143.00 mm[Hg] - Sitting 98.90 Tympanic 98.00 % 67.00/ min 18.00/min 010 02394 2 214.00 mg/dL 010 87315 0 214.00 mg/dL 010 55046 7 214.00 mg/dL 010 81406 6 64.00 mm[Hg] - Sitting 110.00 mm[Hg] - Sitting 72.00/ min 010 85133 7 98.40 Tympanic 010 79004 1 212.00 mg/dL 010 55083 2 212.00 mg/dL 010 66930 1 115.00 mg/dL 010 25699 0 115.00 mg/dL Immunizations Vaccine Date Status COVID-19 09/20/2023 Completed Other 10/08/2023 Completed Shingles 05/27/2011 Completed Tetanus 04/13/2022 Completed TDaP 04/13/2022 Completed Shingles 2 10/05/2018 Completed
--- OUTSIDE RECORDS SUMMARY | 2024-10-03 11:16 | External Medical Summary | Continuity Of Care Document ---
Author Name Unknown Address [address] [address] Organization [facility] () Care Team Providers Care Drop Hammer Setter Up Name Role Phone DO Machado Amy Primary Care Provider [phone] Allergies Allergy Reaction Start Date End Date [...] 3 0.1 mL 08/29 Inactiv e 2023 59884 07918 0 1 time Intrad ermal False Tubersol 5 tub. unit/0.1 mL intradermal injection solution [Tuberculin PPD] 0.1mL Intradermal 1 time For PPD 2nd Step Give 2nd Step PPD Day 1 and Read results Day 3 (schedule 7 days after 1st READ) 0.1mL 09/08 Active 2023 76226 49797 0 1 time Intrad ermal False Humalog [...] order For Diabetes 08/25 Inactiv e 2023 00907 15422 9 4 times a day Subcut aneous False Aspirin 325 mg tablet [generic] 325 By Mouth Twice daily For Anticoagulati on 325 09/25 Active 2023 27983 71791 1 Twice daily By Mouth False Ferrous sulfate 325 mg (65 mg iron) tablet [generic] 325 By Mouth Once daily For anemia 325 2023 Active 2023 96933 82898 5 Once daily By Mouth False Linezolid 600 mg tablet [generic] 600 mg By Mouth Every 12 hours For MRSA INFECTION L BKA 600 mg 08/25 Inactiv e 2023 07828 83165 1 Every 12 hours By Mouth False Cefpodoxime 200 mg tablet [generic] 400 mg By Mouth Twice daily For MRSA INFECTION L BKA 400 mg 08/25 Inactiv e 2023 85836 33896 0 Twice daily By Mouth False Coenzyme Q10 100 mg tablet [generic] 100 mg By Mouth Once daily For SUPP 100 mg 2023 Active 2023 36244 29741 0 Once daily By Mouth False Levothyroxi ne 50 mcg tablet [generic] 50mcg By Mouth Once daily For hypothyroidis m 50mcg 2023 Active 2023 36864 39190 0 Once daily By Mouth False One A Day Men Complete 240 mcg-25 mcg-300 mcg tablet 1 tab By Mouth Once daily For supplement 1 tab 2023 Active 2023 00246 80293 1 Once daily By Mouth False Cholecalcif adalberto (vitamin D3) 50 mcg (2,000 unit) tablet [generic] 1 TAB By Mouth Once daily For SUPP 1 TAB 2023 Active 2023 68295 91914 1 Once daily By Mouth False Cetirizine 10 mg tablet [generic] 1 TAB By Mouth At bedtime For Allergies 1 TAB 2023 Active 2023 95582 57802 0 At bedtime By Mouth False Timolol maleate 0.25 % eye drops [generic] 1 drop Both Eyes Twice daily For glaucoma 1 drop 2023 Active 2023 86303 78119 5 Twice daily Both Eyes False Alendronate 35 mg tablet [generic] 35mg By Mouth Every week For SIADH 35mg 2023 Active 2023 16490 59996 5 Every week By Mouth False Lantus Solostar U-100 Insulin 100 unit/mL (3 mL) subcutaneou s pen 18 units Subcutaneous Every morning For DIABETES 18 units 08/25 Inactiv e 2023 29425 73678 0 Every morning Subcut aneous False Lantus Solostar U-100 Insulin 100 unit/mL (3 mL) subcutaneou s pen 18 units Subcutaneous Every morning For DIABETES 18 units 2023 Active 2023 46737 54654 0 Every morning Subcut aneous False Linezolid 600 mg tablet [generic] 600 mg By Mouth Every 12 hours For MRSA INFECTION L BKA 600 mg 08/28 Inactiv e 2023 81115 70798 1 Every 12 hours By Mouth False [...] order For Diabetes 08/31 Inactiv e 2023 92512 82752 9 4 times a day Subcut aneous False Cefpodoxime 200 mg tablet [generic] 400 mg By Mouth Twice daily For MRSA INFECTION L BKA 400 mg 08/28 Inactiv e 2023 40068 68281 0 Twice daily By Mouth False Brimonidine 0.1 % eye drops [generic] 1 drop Both Eyes Twice daily For glaucoma 1 drop 2023 Active 2023 21443 90937 0 Twice daily Both Eyes False Metoprolol succinate ER 50 mg tablet,exte nded release 24 hr [generic] 50 mg By Mouth Once daily HOLD FOR SBP <100, or pulse <60 For HTN 50 mg 2023 Active 2023 90445 92277 1 Once daily By Mouth False Amlodipine 2.5 mg tablet [generic] 2.5 mg By Mouth Once daily For HTN 2.5 mg 2023 Active 2023 12394 64255 5 Once daily By Mouth False Docusate sodium 100 mg capsule [generic] 100mg By Mouth Twice daily as needed For constipation HOLD FOR LOOSE STOOLS 100mg 2023 Active 2023 11926 77104 1 Twice daily as needed By Mouth False Atorvastati n 40 mg tablet [generic] 40mg By Mouth Once daily For HDL 40mg 08/26 Inactiv e 2023 71674 53505 5 Once daily By Mouth False Tylenol 325 mg tablet 2 tabs By Mouth Every 4 hours as needed For Pain DO NOT EXCEED 3000 MG APAP/24 Hours 2 tabs 2023 Active 2023 91733 40207 0 Every 4 hours as needed By Mouth False Tylenol 325 mg tablet 2 tabs By Mouth Every 4 hours as needed For Fever >100 DO NOT EXCEED 3000 MG APAP/24 Hours 2 tabs 2023 Active 2023 04759 36004 0 Every 4 hours as needed By Mouth False Dulcolax (bisacodyl) 10 mg rectal suppository One Suppository per rectum PRN if Milk of Magnisia ineffective. Give on day 5 of no BM 1 sup 2023 Active 2023 52489 19834 1 Daily as needed Rectal False Fleet Enema 19 gram-7 gram/118 mL Administer per rectum PRN one time if dulcolax suppository not effective. Give on day 6 of no BM 1 2023 Active 2023 84658 51822 6 Daily as needed Rectal False Dextrose 50 % in water (D50W) intravenous solution [generic] Dextrose 50% evonne 20-50 ml (slow push) Intravenous if Glucagon not effective after 15 minutes. CALL 911 for ED Evaluation. 50% evonne 2023 Active 2023 48167 32674 9 Intrav enous False Glucagon (HCl) Emergency Kit 1 mg solution for injection Administer Glucagon 1 mg Intramuscular if 15 minutes after GLucose Gel is administered Glucose remains less than 70 1 mg 2023 Active 2023 63856 45200 2 Intram uscula r False Glucose Gel 40 % oral gel [Dextrose] PRN If resident is unable to swallow (with or without symptoms) and Glucose results less than 70 give GLucose 40% Gel 1 tube orally - Recheck Glucose 15 minutes after administratio n. 1 tube 2023 Active 2023 34214 95906 8 By Mouth False Milk of Magnesia 400 mg/5 mL oral suspension [Magnesium hydroxide] PRN 30ml By Mouth Daily as needed for constipation one time daily if no BM, on day 4 of no BM (PRN refer to instructions) For Constipation 30 mL 2023 Active 2023 68469 88064 6 Daily as needed By Mouth False Atorvastati n 40 mg tablet [generic] 08/26 Inactiv e 2023 89082 37830 5 Atorvastati n 40 mg tablet [generic] 40mg By Mouth Once daily For HDL 40mg 2023 Active 2023 43058 79676 5 Once daily By Mouth False Insulin aspart (U-100) 100 unit/mL (3 mL) subcutaneou s pen [generic] 15 units Subcutaneous 1 time For dm 15 units 08/26 Inactiv e 2023 22284 41753 5 1 time Subcut aneous False Humalog KwikPen (U-100) Insulin 100 unit/mL subcutaneou s 15 units Subcutaneous 1 time For dm 15 units 08/27 Inactiv e 2023 74169 64433 9 1 time Subcut aneous False Linezolid 600 mg tablet [generic] 600 mg By Mouth Every 12 hours For MRSA INFECTION L BKA 600 mg 09/06 Active 2023 44350 10621 1 Every 12 hours By Mouth False Cefpodoxime 200 mg tablet [generic] 400 mg By Mouth Twice daily For MRSA INFECTION L BKA 400 mg 08/31 Inactiv e 2023 66339 71629 0 Twice daily By Mouth False Senna 8.6 mg tablet 8.6 mg By Mouth Once daily For Constipation 8.6 mg 2023 Active 2023 46260 00084 1 Once daily By Mouth False Humalog [...] abnormalities . Per Carb 2023 Active 2023 08624 56634 9 4 times a day Subcut aneous False Humalog KwikPen (U-100) Insulin 100 unit/mL subcutaneou s 08/31 Inactiv e 2023 85596 05456 9 MediHoney HCS 4 1/2in X 4 1/2in bandage Cleanse area with NSS, apply one mediney hydrocolloid dressing, non adherent dressing, kerlix secure with paper tape daily. For wound stage III 1 2023 Active 2023 94181 20782 1 Once daily Topica l False Problems Code Description Start Date End Date Status D64.9 Anemia, unspecified 08/25/2024 Activ e I25.10 Atherosclerotic hear t disease of [place] coronary artery without angina pectoris 08/25/2024 Active [...] weight Temperature SpO2 Blood Sugar Pulse Respirations 20620 8 67.00 mm[Hg] - Sitting 145.00 mm[Hg] - Sitting 98.50 Forehead Scan 96.00 % 81.00/ min 16.00/min 86910 2 67.00 mm[Hg] - Sitting 145.00 mm[Hg] - Sitting 98.50 Tympanic 81.00/ min 16.00/min 96375 004 83386 5 56.00 mm[Hg] - Sitting 142.00 mm[Hg] - Sitting 136.40 NI 100.20 Tympanic 96.00 % 92.00/ min 18.00/min 03798 004 40847 6 66173 004 76377 4 143.00 mg/dL 85884 004 36627 0 97.80 Tympanic 84717 005 59699 7 60.00 mm[Hg] - Sitting 140.00 mm[Hg] - Sitting 98.00 Tympanic 84.00/ min 18.00/min 34782 005 49275 0 63.00 mm[Hg] - Sitting 141.00 mm[Hg] - Sitting 98.20 Tympanic 92.00 % 63.00/ min 16.00/min 10484 005 03379 8 69.00 mm[Hg] - Sitting 106.00 mm[Hg] - Sitting 97.20 Tympanic 93500 005 07260 7 69.00/ min 16.00/min 93170 005 38331 3 69.00 mm[Hg] - Sitting 106.00 mm[Hg] - Sitting 98.20 Tympanic 69.00/ min 16.00/min 18164 005 05560 1 367.00 mg/dL 28219 005 97411 2 97.20 Tympanic 32901 005 03737 4 97.20 Tympanic 56398 005 91145 0 69.00 mm[Hg] - Sitting 106.00 mm[Hg] - Sitting 69.00/ min 50788 005 32104 3 452.00 mg/dL 74913 005 41629 3 452.00 mg/dL 62506 005 60742 5 352.00 mg/dL 55395 005 72580 3 352.00 mg/dL 47860 005 63995 7 98.20 Tympanic 65557 005 28891 3 101.00 mg/dL 03579 005 66512 8 101.00 mg/dL 28009 006 31092 4 66.00 mm[Hg] - Sitting 107.00 mm[Hg] - Sitting 98.00 Tympanic 66.00/ min 18.00/min 46178 006 94478 0 62.00 mm[Hg] - Sitting 162.00 mm[Hg] - Sitting 98.20 Tympanic 96.00 % 60.00/ min 16.00/min 13951 006 98191 4 62.00 mm[Hg] - Sitting 162.00 mm[Hg] - Sitting 98.00 Tympanic 70.00/ min 18.00/min 27291 006 32392 8 62.00 mm[Hg] - Sitting 162.00 mm[Hg] - Sitting 98.20 Tympanic 70.00/ min 18.00/min 92649 006 46962 2 66.00 mm[Hg] - Sitting 132.00 mm[Hg] - Sitting 98.60 Tympanic 74.00/ min 16.00/min 02855 006 08053 5 159.00 mg/dL 09966 006 55108 1 159.00 mg/dL 55687 006 33000 8 98.00 Tympanic 05163 006 06241 2 62.00 mm[Hg] - Sitting 162.00 mm[Hg] - Sitting 70.00/ min Immunizations Vaccine Date Status COVID-19 09/20/2023 Completed Other 10/08/2023 Completed Shingles 05/27/2011 Completed Tetanus 04/13/2022 Completed TDaP 04/13/2022 Completed Shingles 2 10/05/2018 Completed
--- OUTSIDE RECORDS SUMMARY | 2024-10-03 11:16 | External Medical Summary | Continuity Of Care Document ---
Author Name Unknown Address [address] [address] Organization [facility] () Care Team Providers Care Motor Vehicle Field Representative Name Role Phone DO Machado Amy Primary Care Provider [phone] Allergies Allergy Reaction Start Date End Date [...] 3 0.1 mL 08/29 Inactiv e 2023 41237 25953 0 1 time Intrad ermal False Tubersol 5 tub. unit/0.1 mL intradermal injection solution [Tuberculin PPD] 0.1mL Intradermal 1 time For PPD 2nd Step Give 2nd Step PPD Day 1 and Read results Day 3 (schedule 7 days after 1st READ) 0.1mL 09/08 Active 2023 59071 52982 0 1 time Intrad ermal False Humalog [...] order For Diabetes 08/25 Inactiv e 2023 20121 23975 9 4 times a day Subcut aneous False Aspirin 325 mg tablet [generic] 325 By Mouth Twice daily For Anticoagulati on 325 09/25 Active 2023 32654 70442 1 Twice daily By Mouth False Ferrous sulfate 325 mg (65 mg iron) tablet [generic] 325 By Mouth Once daily For anemia 325 2023 Active 2023 84052 31040 5 Once daily By Mouth False Linezolid 600 mg tablet [generic] 600 mg By Mouth Every 12 hours For MRSA INFECTION L BKA 600 mg 08/25 Inactiv e 2023 77713 00770 1 Every 12 hours By Mouth False Cefpodoxime 200 mg tablet [generic] 400 mg By Mouth Twice daily For MRSA INFECTION L BKA 400 mg 08/25 Inactiv e 2023 06834 31829 0 Twice daily By Mouth False Coenzyme Q10 100 mg tablet [generic] 100 mg By Mouth Once daily For SUPP 100 mg 2023 Active 2023 16912 44484 0 Once daily By Mouth False Levothyroxi ne 50 mcg tablet [generic] 50mcg By Mouth Once daily For hypothyroidis m 50mcg 2023 Active 2023 82115 84103 0 Once daily By Mouth False One A Day Men Complete 240 mcg-25 mcg-300 mcg tablet 1 tab By Mouth Once daily For supplement 1 tab 2023 Active 2023 82314 33409 1 Once daily By Mouth False Cholecalcif adalberto (vitamin D3) 50 mcg (2,000 unit) tablet [generic] 1 TAB By Mouth Once daily For SUPP 1 TAB 2023 Active 2023 58015 43820 1 Once daily By Mouth False Cetirizine 10 mg tablet [generic] 1 TAB By Mouth At bedtime For Allergies 1 TAB 2023 Active 2023 68376 86626 0 At bedtime By Mouth False Timolol maleate 0.25 % eye drops [generic] 1 drop Both Eyes Twice daily For glaucoma 1 drop 2023 0000 /0000 Active 2023 78577 08271 5 Twice daily Both Eyes False Alendronate 35 mg tablet [generic] 35mg By Mouth Every week For SIADH 35mg 08/31 Inactiv e 2023 78103 04872 5 Every week By Mouth False Lantus Solostar U-100 Insulin 100 unit/mL (3 mL) subcutaneou s pen 18 units Subcutaneous Every morning For DIABETES 18 units 08/25 Inactiv e 2023 38872 17137 0 Every morning Subcut aneous False Lantus Solostar U-100 Insulin 100 unit/mL (3 mL) subcutaneou s pen 18 units Subcutaneous Every morning For DIABETES 18 units 2023 Active 2023 57560 02497 0 Every morning Subcut aneous False Linezolid 600 mg tablet [generic] 600 mg By Mouth Every 12 hours For MRSA INFECTION L BKA 600 mg 08/28 Inactiv e 2023 28621 89549 1 Every 12 hours By Mouth False [...] order For Diabetes 08/31 Inactiv e 2023 76327 15360 9 4 times a day Subcut aneous False Cefpodoxime 200 mg tablet [generic] 400 mg By Mouth Twice daily For MRSA INFECTION L BKA 400 mg 08/28 Inactiv e 2023 93389 95012 0 Twice daily By Mouth False Brimonidine 0.1 % eye drops [generic] 1 drop Both Eyes Twice daily For glaucoma 1 drop 2023 Active 2023 07921 58445 0 Twice daily Both Eyes False Metoprolol succinate ER 50 mg tablet,exte nded release 24 hr [generic] 50 mg By Mouth Once daily HOLD FOR SBP <100, or pulse <60 For HTN 50 mg 2023 Active 2023 49054 44940 1 Once daily By Mouth False Amlodipine 2.5 mg tablet [generic] 2.5 mg By Mouth Once daily For HTN 2.5 mg 2023 Active 2023 84030 37278 5 Once daily By Mouth False Docusate sodium 100 mg capsule [generic] 100mg By Mouth Twice daily as needed For constipation HOLD FOR LOOSE STOOLS 100mg 2023 Active 2023 29650 77401 1 Twice daily as needed By Mouth False Atorvastati n 40 mg tablet [generic] 40mg By Mouth Once daily For HDL 40mg 08/26 Inactiv e 2023 79760 76710 5 Once daily By Mouth False Tylenol 325 mg tablet 2 tabs By Mouth Every 4 hours as needed For Pain DO NOT EXCEED 3000 MG APAP/24 Hours 2 tabs 2023 Active 2023 91635 36591 0 Every 4 hours as needed By Mouth False Tylenol 325 mg tablet 2 tabs By Mouth Every 4 hours as needed For Fever >100 DO NOT EXCEED 3000 MG APAP/24 Hours 2 tabs 2023 Active 2023 92036 08672 0 Every 4 hours as needed By Mouth False Dulcolax (bisacodyl) 10 mg rectal suppository One Suppository per rectum PRN if Milk of Magnisia ineffective. Give on day 5 of no BM 1 sup 2023 Active 2023 66237 07246 1 Daily as needed Rectal False Fleet Enema 19 gram-7 gram/118 mL Administer per rectum PRN one time if dulcolax suppository not effective. Give on day 6 of no BM 1 2023 Active 2023 23888 14120 6 Daily as needed Rectal False Dextrose 50 % in water (D50W) intravenous solution [generic] Dextrose 50% evonne 20-50 ml (slow push) Intravenous if Glucagon not effective after 15 minutes. CALL 911 for ED Evaluation. 50% evonne 2023 Active 2023 42764 59025 9 Intrav enous False Glucagon (HCl) Emergency Kit 1 mg solution for injection Administer Glucagon 1 mg Intramuscular if 15 minutes after GLucose Gel is administered Glucose remains less than 70 1 mg 2023 Active 2023 13530 61857 2 Intram uscula r False Glucose Gel 40 % oral gel [Dextrose] PRN If resident is unable to swallow (with or without symptoms) and Glucose results less than 70 give GLucose 40% Gel 1 tube orally - Recheck Glucose 15 minutes after administratio n. 1 tube 2023 Active 2023 05889 03240 8 By Mouth False Milk of Magnesia 400 mg/5 mL oral suspension [Magnesium hydroxide] PRN 30ml By Mouth Daily as needed for constipation one time daily if no BM, on day 4 of no BM (PRN refer to instructions) For Constipation 30 mL 2023 Active 2023 37056 43328 6 Daily as needed By Mouth False Atorvastati n 40 mg tablet [generic] 08/26 Inactiv e 2023 71763 48794 5 Atorvastati n 40 mg tablet [generic] 40mg By Mouth Once daily For HDL 40mg 2023 Active 2023 90054 22814 5 Once daily By Mouth False Insulin aspart (U-100) 100 unit/mL (3 mL) subcutaneou s pen [generic] 15 units Subcutaneous 1 time For dm 15 units 08/26 Inactiv e 2023 90614 09089 5 1 time Subcut aneous False Humalog KwikPen (U-100) Insulin 100 unit/mL subcutaneou s 15 units Subcutaneous 1 time For dm 15 units 08/27 Inactiv e 2023 15980 49400 9 1 time Subcut aneous False Linezolid 600 mg tablet [generic] 600 mg By Mouth Every 12 hours For MRSA INFECTION L BKA 600 mg 09/06 Active 2023 23238 64993 1 Every 12 hours By Mouth False Cefpodoxime 200 mg tablet [generic] 400 mg By Mouth Twice daily For MRSA INFECTION L BKA 400 mg 08/31 Inactiv e 2023 92823 38179 0 Twice daily By Mouth False Senna 8.6 mg tablet 8.6 mg By Mouth Once daily For Constipation 8.6 mg 2023 Active 2023 22928 70146 1 Once daily By Mouth False Humalog [...] abnormalities . Per Carb 2023 Active 2023 49709 45538 9 4 times a day Subcut aneous False Alendronate 35 mg tablet [generic] 08/31 Inactiv e 2023 54638 29886 5 Alendronate 35 mg tablet [generic] 35mg By Mouth Every week For Osteoporosis 35mg 2023 Active 2023 91555 46881 5 Every week By Mouth False ProSource 10 gram-100 kcal/30 mL oral liquid 30 ml By Mouth Once daily For wound healing 30 ml 2023 Active 2023 14675 03102 2 Once daily By Mouth False Humalog KwikPen (U-100) Insulin 100 unit/mL subcutaneou s 08/31 Inactiv e 2023 81454 57962 9 MediHoney HCS 4 1/2in X 4 1/2in bandage Cleanse area with NSS, apply one medihoney hydrocolloid dressing, non adherent dressing, kerlix secure with paper tape daily. For wound stage III 1 2023 Active 2023 79093 43327 1 Once daily Topica l False Problems Code Description Start Date End Date Status D64.9 Anemia, unspecified 08/25/2024 Activ e I25.10 Atherosclerotic hear t disease of [place] coronary artery without angina pectoris 08/25/2024 Active [...] weight Temperature SpO2 Blood Sugar Pulse Respirations 63055 8 67.00 mm[Hg] - Sitting 145.00 mm[Hg] - Sitting 98.50 Forehead Scan 96.00 % 81.00/ min 16.00/min 58096 004 89575 2 67.00 mm[Hg] - Sitting 145.00 mm[Hg] - Sitting 98.50 Tympanic 81.00/ min 16.00/min 87657 004 94728 5 56.00 mm[Hg] - Sitting 142.00 mm[Hg] - Sitting 136.40 NI 100.20 Tympanic 96.00 % 92.00/ min 18.00/min 47907 004 91800 6 42157 004 98665 4 143.00 mg/dL 004 47638 0 97.80 Tympanic 55838 005 03756 7 60.00 mm[Hg] - Sitting 140.00 mm[Hg] - Sitting 98.00 Tympanic 84.00/ min 18.00/min 19211 005 31265 0 63.00 mm[Hg] - Sitting 141.00 mm[Hg] - Sitting 98.20 Tympanic 92.00 % 63.00/ min 16.00/min 60007 005 72846 8 69.00 mm[Hg] - Sitting 106.00 mm[Hg] - Sitting 97.20 Tympanic 15876 005 82150 7 69.00/ min 16.00/min 23070 005 46916 3 69.00 mm[Hg] - Sitting 106.00 mm[Hg] - Sitting 98.20 Tympanic 69.00/ min 16.00/min 56893 005 34683 1 367.00 mg/dL 34935 005 16337 2 97.20 Tympanic 71677 005 10454 4 97.20 Tympanic 09373 005 62348 0 69.00 mm[Hg] - Sitting 106.00 mm[Hg] - Sitting 69.00/ min 55526 005 84817 3 452.00 mg/dL 82407 005 34871 3 452.00 mg/dL 17145 005 25106 5 352.00 mg/dL 62358 005 38379 3 352.00 mg/dL 10437 005 18739 7 98.20 Tympanic 61264 005 61852 3 101.00 mg/dL 89296 005 8 101.00 mg/dL 39496 006 28313 4 66.00 mm[Hg] - Sitting 107.00 mm[Hg] - Sitting 98.00 Tympanic 66.00/ min 18.00/min 89820 006 98484 0 62.00 mm[Hg] - Sitting 162.00 mm[Hg] - Sitting 98.20 Tympanic 96.00 % 60.00/ min 16.00/min 28413 006 90118 4 62.00 mm[Hg] - Sitting 162.00 mm[Hg] - Sitting 98.00 Tympanic 70.00/ min 18.00/min 81242 006 25064 8 62.00 mm[Hg] - Sitting 162.00 mm[Hg] - Sitting 98.20 Tympanic 70.00/ min 18.00/min 44702 006 93146 2 66.00 mm[Hg] - Sitting 132.00 mm[Hg] - Sitting 98.60 Tympanic 74.00/ min 16.00/min 76384 006 71524 5 159.00 mg/dL 82024 006 11463 1 159.00 mg/dL 94056 006 04181 8 98.00 Tympanic 38498 006 86697 2 62.00 mm[Hg] - Sitting 162.00 mm[Hg] - Sitting 70.00/ min 95318 006 12605 7 264.00 mg/dL 54822 006 15067 7 264.00 mg/dL 02138 006 51275 4 196.00 mg/dL 01972 006 76916 3 98.20 Tympanic 93804 006 84889 6 271.00 mg/dL 86468 007 46298 3 97.20 Tympanic 74532 007 81761 2 63.00 mm[Hg] - Sitting 132.00 mm[Hg] - Sitting 98.50 Tympanic 94.00 % 66.00/ min 16.00/min 64594 007 49855 5 188.00 mg/dL 69270 007 93030 2 188.00 mg/dL 28793 007 01925 2 188.00 mg/dL 30492 007 84771 7 97.20 Tympanic 84834 007 14455 6 97.20 Tympanic 20839 007 41699 5 67.00 mm[Hg] - Sitting 152.00 mm[Hg] - Sitting 68.00/ min 19624 007 06211 0 141.00 mg/dL 57997 007 53170 3 141.00 mg/dL 19612 007 62119 1 366.00 mg/dL 73896 007 14283 7 366.00 mg/dL 16867 007 37063 7 98.00 Tympanic 52997 007 78057 6 324.00 mg/dL 33674 007 38147 3 98.00 Tympanic 56589 007 78395 7 324.00 mg/dL 70507 008 27755 0 98.00 Tympanic 56832 008 19566 2 97.90 Tympanic 89849 008 44222 0 98.20 Tympanic 91640 008 56181 0 73.00 mm[Hg] - Sitting 156.00 mm[Hg] - Sitting 98.60 Tympanic 99.00 % 66.00/ min 20.00/min 81582 008 43693 5 137.00 mg/dL 55023 008 20288 7 137.00 mg/dL 11600 008 90271 2 97.90 Tympanic 07143 008 33937 1 137.00 mg/dL 78631 008 80570 8 97.90 Tympanic 18062 008 04937 5 67.00 mm[Hg] - Sitting 124.00 /min 35886 008 81827 6 212.00 mg/dL 84069 008 53082 6 212.00 mg/dL 19398 008 53322 9 317.00 mg/dL 37692 008 50087 4 317.00 mg/dL 02933 008 06094 8 252.00 mg/dL 96996 008 84398 0 98.70 Tympanic 77384 008 51068 7 252.00 mg/dL 17918 008 38931 3 98.70 Tympanic 16853 009 30127 9 98.70 Tympanic 37909 009 94686 3 98.20 Tympanic 19471 009 36426 5 98.40 Tympanic 36425 009 96338 5 57.00 mm[Hg] - Sitting 129.00 mm[Hg] - Sitting 98.30 Tympanic 97.00 % 65.00/ min 18.00/min 59629 009 57747 1 255.00 mg/dL 41455 009 73655 4 255.00 mg/dL 19282 009 17676 5 98.20 Tympanic 34910 009 34672 0 255.00 mg/dL Immunizations Vaccine Date Status COVID-19 09/20/2023 Completed Other 10/08/2023 Completed Shingles 05/27/2011 Completed Tetanus 04/13/2022 Completed TDaP 04/13/2022 Completed Shingles 2 10/05/2018 Completed
--- OUTSIDE RECORDS SUMMARY | 2024-10-03 11:16 | External Medical Summary | Continuity Of Care Document ---
Author Name Unknown Address [address] [address] Organization [facility] () Care Team Providers Care Records Technician Name Role Phone DO Machado Amy Primary Care Provider [phone] Allergies Allergy Reaction Start Date End Date [...] 3 0.1 mL 08/29 Inactiv e 2023 41981 37056 0 1 time Intrad ermal False Tubersol 5 tub. unit/0.1 mL intradermal injection solution [Tuberculin PPD] 0.1mL Intradermal 1 time For PPD 2nd Step Give 2nd Step PPD Day 1 and Read results Day 3 (schedule 7 days after 1st READ) 0.1mL 09/08 Active 2023 78347 10418 0 1 time Intrad ermal False Humalog [...] order For Diabetes 08/25 Inactiv e 2023 59506 98789 9 4 times a day Subcut aneous False Aspirin 325 mg tablet [generic] 325 By Mouth Twice daily For Anticoagulati on 325 09/25 Active 2023 54695 63896 1 Twice daily By Mouth False Ferrous sulfate 325 mg (65 mg iron) tablet [generic] 325 By Mouth Once daily For anemia 325 2023 Active 2023 51042 42094 5 Once daily By Mouth False Linezolid 600 mg tablet [generic] 600 mg By Mouth Every 12 hours For MRSA INFECTION L BKA 600 mg 08/25 Inactiv e 2023 26304 33324 1 Every 12 hours By Mouth False Cefpodoxime 200 mg tablet [generic] 400 mg By Mouth Twice daily For MRSA INFECTION L BKA 400 mg 08/25 Inactiv e 2023 02461 30868 0 Twice daily By Mouth False Coenzyme Q10 100 mg tablet [generic] 100 mg By Mouth Once daily For SUPP 100 mg 2023 Active 2023 92974 59265 0 Once daily By Mouth False Levothyroxi ne 50 mcg tablet [generic] 50mcg By Mouth Once daily For hypothyroidis m 50mcg 2023 Active 2023 54599 18557 0 Once daily By Mouth False One A Day Men Complete 240 mcg-25 mcg-300 mcg tablet 1 tab By Mouth Once daily For supplement 1 tab 2023 Active 2023 30078 36722 1 Once daily By Mouth False Cholecalcif adalberto (vitamin D3) 50 mcg (2,000 unit) tablet [generic] 1 TAB By Mouth Once daily For SUPP 1 TAB 2023 Active 2023 11849 99536 1 Once daily By Mouth False Cetirizine 10 mg tablet [generic] 1 TAB By Mouth At bedtime For Allergies 1 TAB 2023 Active 2023 95913 07878 0 At bedtime By Mouth False Timolol maleate 0.25 % eye drops [generic] 1 drop Both Eyes Twice daily For glaucoma 1 drop 2023 0000 /0000 Active 2023 56850 09022 5 Twice daily Both Eyes False Alendronate 35 mg tablet [generic] 35mg By Mouth Every week For SIADH 35mg 08/31 Inactiv e 2023 21629 51777 5 Every week By Mouth False Lantus Solostar U-100 Insulin 100 unit/mL (3 mL) subcutaneou s pen 18 units Subcutaneous Every morning For DIABETES 18 units 08/25 Inactiv e 2023 06024 84678 0 Every morning Subcut aneous False Lantus Solostar U-100 Insulin 100 unit/mL (3 mL) subcutaneou s pen 18 units Subcutaneous Every morning For DIABETES 18 units 2023 Active 2023 22459 27366 0 Every morning Subcut aneous False Linezolid 600 mg tablet [generic] 600 mg By Mouth Every 12 hours For MRSA INFECTION L BKA 600 mg 08/28 Inactiv e 2023 36505 46223 1 Every 12 hours By Mouth False [...] order For Diabetes 08/31 Inactiv e 2023 76560 06860 9 4 times a day Subcut aneous False Cefpodoxime 200 mg tablet [generic] 400 mg By Mouth Twice daily For MRSA INFECTION L BKA 400 mg 08/28 Inactiv e 2023 98281 99501 0 Twice daily By Mouth False Brimonidine 0.1 % eye drops [generic] 1 drop Both Eyes Twice daily For glaucoma 1 drop 2023 Active 2023 20645 06212 0 Twice daily Both Eyes False Metoprolol succinate ER 50 mg tablet,exte nded release 24 hr [generic] 50 mg By Mouth Once daily HOLD FOR SBP <100, or pulse <60 For HTN 50 mg 2023 Active 2023 82142 45963 1 Once daily By Mouth False Amlodipine 2.5 mg tablet [generic] 2.5 mg By Mouth Once daily For HTN 2.5 mg 2023 Active 2023 52653 00093 5 Once daily By Mouth False Docusate sodium 100 mg capsule [generic] 100mg By Mouth Twice daily as needed For constipation HOLD FOR LOOSE STOOLS 100mg 2023 Active 2023 18182 58231 1 Twice daily as needed By Mouth False Atorvastati n 40 mg tablet [generic] 40mg By Mouth Once daily For HDL 40mg 08/26 Inactiv e 2023 56359 80510 5 Once daily By Mouth False Tylenol 325 mg tablet 2 tabs By Mouth Every 4 hours as needed For Pain DO NOT EXCEED 3000 MG APAP/24 Hours 2 tabs 2023 Active 2023 13860 11874 0 Every 4 hours as needed By Mouth False Tylenol 325 mg tablet 2 tabs By Mouth Every 4 hours as needed For Fever >100 DO NOT EXCEED 3000 MG APAP/24 Hours 2 tabs 2023 Active 2023 98388 08145 0 Every 4 hours as needed By Mouth False Dulcolax (bisacodyl) 10 mg rectal suppository One Suppository per rectum PRN if Milk of Magnisia ineffective. Give on day 5 of no BM 1 sup 2023 Active 2023 43878 65101 1 Daily as needed Rectal False Fleet Enema 19 gram-7 gram/118 mL Administer per rectum PRN one time if dulcolax suppository not effective. Give on day 6 of no BM 1 2023 Active 2023 82753 63113 6 Daily as needed Rectal False Dextrose 50 % in water (D50W) intravenous solution [generic] Dextrose 50% evonne 20-50 ml (slow push) Intravenous if Glucagon not effective after 15 minutes. CALL 911 for ED Evaluation. 50% evonne 2023 Active 2023 42476 47434 9 Intrav enous False Glucagon (HCl) Emergency Kit 1 mg solution for injection Administer Glucagon 1 mg Intramuscular if 15 minutes after GLucose Gel is administered Glucose remains less than 70 1 mg 2023 Active 2023 84422 40876 2 Intram uscula r False Glucose Gel 40 % oral gel [Dextrose] PRN If resident is unable to swallow (with or without symptoms) and Glucose results less than 70 give GLucose 40% Gel 1 tube orally - Recheck Glucose 15 minutes after administratio n. 1 tube 2023 Active 2023 69139 61887 8 By Mouth False Milk of Magnesia 400 mg/5 mL oral suspension [Magnesium hydroxide] PRN 30ml By Mouth Daily as needed for constipation one time daily if no BM, on day 4 of no BM (PRN refer to instructions) For Constipation 30 mL 2023 Active 2023 85089 39993 6 Daily as needed By Mouth False Atorvastati n 40 mg tablet [generic] 08/26 Inactiv e 2023 24999 45031 5 Atorvastati n 40 mg tablet [generic] 40mg By Mouth Once daily For HDL 40mg 2023 Active 2023 07617 61786 5 Once daily By Mouth False Insulin aspart (U-100) 100 unit/mL (3 mL) subcutaneou s pen [generic] 15 units Subcutaneous 1 time For dm 15 units 08/26 Inactiv e 2023 96369 25373 5 1 time Subcut aneous False Humalog KwikPen (U-100) Insulin 100 unit/mL subcutaneou s 15 units Subcutaneous 1 time For dm 15 units 08/27 Inactiv e 2023 84565 80142 9 1 time Subcut aneous False Linezolid 600 mg tablet [generic] 600 mg By Mouth Every 12 hours For MRSA INFECTION L BKA 600 mg 09/06 Active 2023 68449 46944 1 Every 12 hours By Mouth False Cefpodoxime 200 mg tablet [generic] 400 mg By Mouth Twice daily For MRSA INFECTION L BKA 400 mg 08/31 Inactiv e 2023 18906 08655 0 Twice daily By Mouth False Senna 8.6 mg tablet 8.6 mg By Mouth Once daily For Constipation 8.6 mg 2023 Active 2023 84962 55278 1 Once daily By Mouth False Humalog [...] abnormalities . Per Carb 2023 Active 2023 93013 45907 9 4 times a day Subcut aneous False Alendronate 35 mg tablet [generic] 08/31 Inactiv e 2023 72996 82607 5 Alendronate 35 mg tablet [generic] 35mg By Mouth Every week For Osteoporosis 35mg 202300 Active 2023 03970 89385 5 Every week By Mouth False Humalog KwikPen (U-100) Insulin 100 unit/mL subcutaneou s 08/31 Inactiv e 2023 92472 31656 9 MediHoney HCS 4 1/2in X 4 1/2in bandage Cleanse area with NSS, apply one medihoney hydrocolloid dressing, non adherent dressing, kerlix secure with paper tape daily. For wound stage III 1 2023 Active 2023 09923 20772 1 Once daily Juanya l False Problems Code Description Start Date End Date Status D64.9 Anemia, unspecified 08/25/2024 Activ e I25.10 Atherosclerotic hear t disease of [place] coronary artery without angina pectoris 08/25/2024 Active [...] weight Temperature SpO2 Blood Sugar Pulse Respirations 77025 004 00919 8 67.00 mm[Hg] - Sitting 145.00 mm[Hg] - Sitting 98.50 Forehead Scan 96.00 % 81.00/ min 16.00/min 70401 004 65123 2 67.00 mm[Hg] - Sitting 145.00 mm[Hg] - Sitting 98.50 Tympanic 81.00/ min 16.00/min 59589 004 80133 5 56.00 mm[Hg] - Sitting 142.00 mm[Hg] - Sitting 136.40 NI 100.20 Tympanic 96.00 % 92.00/ min 18.00/min 14559 004 73183 6 13480 004 58164 4 143.00 mg/dL 28044 004 90825 0 97.80 Tympanic 17604 005 51007 7 60.00 mm[Hg] - Sitting 140.00 mm[Hg] - Sitting 98.00 Tympanic 84.00/ min 18.00/min 43833 005 42355 0 63.00 mm[Hg] - Sitting 141.00 mm[Hg] - Sitting 98.20 Tympanic 92.00 % 63.00/ min 16.00/min 75712 005 08660 8 69.00 mm[Hg] - Sitting 106.00 mm[Hg] - Sitting 97.20 Tympanic 59422 005 43877 7 69.00/ min 16.00/min 90775 005 60994 3 69.00 mm[Hg] - Sitting 106.00 mm[Hg] - Sitting 98.20 Tympanic 69.00/ min 16.00/min 21430 005 65436 1 367.00 mg/dL 78559 005 50326 2 97.20 Tympanic 24253 005 40883 4 97.20 Tympanic 85514 005 05698 0 69.00 mm[Hg] - Sitting 106.00 mm[Hg] - Sitting 69.00/ min 39479 005 38104 3 452.00 mg/dL 37522 005 21608 3 452.00 mg/dL 68099 005 44412 5 352.00 mg/dL 54543 005 81326 3 352.00 mg/dL 94793 005 59110 7 98.20 Tympanic 96228 005 32070 3 101.00 mg/dL 35951 005 82173 8 101.00 mg/dL 43639 006 22445 4 66.00 mm[Hg] - Sitting 107.00 mm[Hg] - Sitting 98.00 Tympanic 66.00/ min 18.00/min 75409 006 69193 0 62.00 mm[Hg] - Sitting 162.00 mm[Hg] - Sitting 98.20 Tympanic 96.00 % 60.00/ min 16.00/min 64823 006 98019 4 62.00 mm[Hg] - Sitting 162.00 mm[Hg] - Sitting 98.00 Tympanic 70.00/ min 18.00/min 54166 006 75785 8 62.00 mm[Hg] - Sitting 162.00 mm[Hg] - Sitting 98.20 Tympanic 70.00/ min 18.00/min 73997 006 05145 2 66.00 mm[Hg] - Sitting 132.00 mm[Hg] - Sitting 98.60 Tympanic 74.00/ min 16.00/min 84834 006 56412 5 159.00 mg/dL 54041 006 69673 1 159.00 mg/dL 60929 006 68808 8 98.00 Tympanic 10329 006 87719 2 62.00 mm[Hg] - Sitting 162.00 mm[Hg] - Sitting 70.00/ min 88988 006 44136 7 264.00 mg/dL 39675 006 32061 7 264.00 mg/dL 20170 006 17102 4 196.00 mg/dL 64417 006 78400 3 98.20 Tympanic 76644 006 79406 6 271.00 mg/dL 53025 007 58152 3 97.20 Tympanic 28695 007 19797 2 63.00 mm[Hg] - Sitting 132.00 mm[Hg] - Sitting 98.50 Tympanic 94.00 % 66.00/ min 16.00/min 09506 007 78699 5 188.00 mg/dL 13027 007 16140 2 188.00 mg/dL 08886 007 58388 2 188.00 mg/dL 54726 007 81933 7 97.20 Tympanic 80133 007 65102 6 97.20 Tympanic 63144 007 80512 5 67.00 mm[Hg] - Sitting 152.00 mm[Hg] - Sitting 68.00/ min 69175 007 22156 0 141.00 mg/dL 80083 007 79894 3 141.00 mg/dL 51531 007 91666 1 366.00 mg/dL 52272 007 13022 7 366.00 mg/dL 37591 007 76343 7 98.00 Tympanic 22145 007 39586 6 324.00 mg/dL 07293 007 53219 3 98.00 Tympanic 37458 007 36584 7 324.00 mg/dL 08318 008 55579 0 98.00 Tympanic 84294 008 00718 2 97.90 Tympanic 50288 008 37798 0 98.20 Tympanic 86601 008 57066 0 73.00 mm[Hg] - Sitting 156.00 mm[Hg] - Sitting 98.60 Tympanic 99.00 % 66.00/ min 20.00/min 07207 008 75458 5 137.00 mg/dL 88209 008 02886 7 137.00 mg/dL 06671 008 26242 2 97.90 Tympanic 85687 008 14891 1 137.00 mg/dL 02794 008 24264 8 97.90 Tympanic 73840 008 71341 5 67.00 mm[Hg] - Sitting 124.00 /min 71438 008 26866 6 212.00 mg/dL 00239 008 36916 6 212.00 mg/dL 28581 008 66439 9 317.00 mg/dL 83218 008 91860 4 317.00 mg/dL 94690 008 00487 8 252.00 mg/dL 53459 008 84022 0 98.70 Tympanic 88058 008 29316 7 252.00 mg/dL 48712 008 88744 3 98.70 Tympanic 36440 009 03802 9 98.70 Tympanic 18740 009 18038 3 98.20 Tympanic 76832 009 74259 5 98.40 Tympanic 84438 009 89375 5 57.00 mm[Hg] - Sitting 129.00 mm[Hg] - Sitting 98.30 Tympanic 97.00 % 65.00/ min 18.00/min 15852 009 93608 1 255.00 mg/dL 21771 009 04751 4 255.00 mg/dL 74724 009 09251 5 98.20 Tympanic 58731 009 57055 0 255.00 mg/dL 05576 009 35483 0 98.20 Tympanic 56334 009 03345 4 63.00 mm[Hg] - Lying Down 102.00 mm[Hg] - Lying Down 58.00/ min 20320 009 49067 0 167.00 mg/dL 77573 009 26605 1 167.00 mg/dL 77259 009 13143 2 164.00 mg/dL 63533 009 46886 1 164.00 mg/dL 21083 009 51742 5 208.00 mg/dL 09199 010 47335 3 98.40 Tympanic 28802 010 84052 5 98.40 Tympanic 23725 010 38150 7 66 [place] [address]8420 010 61060 4 60.00 mm[Hg] - Sitting 143.00 mm[Hg] - Sitting 98.90 Tympanic 98.00 % 67.00/ min 18.00/min 94427 010 37335 2 214.00 mg/dL 71845 010 94223 0 214.00 mg/dL 11615 010 34455 7 214.00 mg/dL 53954 010 34246 6 64.00 mm[Hg] - Sitting 110.00 mm[Hg] - Sitting 72.00/ min 74087 010 68480 7 98.40 Tympanic 77172 010 11386 1 212.00 mg/dL 93384 010 46753 2 212.00 mg/dL 22375 010 20110 1 115.00 mg/dL 53914 010 14005 0 115.00 mg/dL 62780 010 78277 4 98.50 Tympanic 51630 010 85940 4 150.00 mg/dL 09835 010 53887 0 150.00 mg/dL Immunizations Vaccine Date Status COVID-19 09/20/2023 Completed Other 10/08/2023 Completed Shingles 05/27/2011 Completed Tetanus 04/13/2022 Completed TDaP 04/13/2022 Completed Shingles 2 10/05/2018 Completed
--- OUTSIDE RECORDS SUMMARY | 2024-10-03 11:17 | External Medical Summary | Summary of Care ---
Author Name Unknown Organization [facility] Address [address] [place] [address] Phone [phone] Care Team Providers Care Battery Checker Name Role Phone Louisa Quiroga DO Primary Care Provider [phone] Reason for Visit * Reason Onset Date Comments Advice 08/31/2024 Encounter Details Date Type Department Care Team (Late st Contact Info) Description 08/31/2024 Telephone Family Practice [facility] [address] [place] [address] Louisa Quiroga DO [address] [place] [address] Advice Allergies Active Allergy Reactions Criticality Noted Date Comments Amoxicillin Nausea/vomiting 02/12/2023 Morphine And Codeine Nausea/vomiting Low 02/28/2010 Pollen 02/28/2010 Guaifenesin-Codeine Nausea/vomiting Low 02/28/2010 Sulfamethoxazole-Trimethoprim Nausea/vomiting 0 06/17/2018 documented as of this encounter (statuses as of 08/31/2024) Medications Medication Sig Dispensed Refills Start Date [...] hemoglobin A1c goal of less than 7.0% ([facility]) Sliding scale 8-12 units prior to meals 4 Each 5 06/15/2023 Active Insulin Syringe-Needle U-100 31G X 1/4" 0.3 MLIndications:Diabete s mellitus with background retinopathy ([facility]) Use as directed. For use of insulin up to 4 times daily 400 Each 3 07/24/2023 Active Metoprolol Succinate ER 50 MG Oral Tablet Extended Release 24 Hour (toPROL XL) TAKE 1 TABLET BY MOUTH IN THE MORNING 90 Tablet 1 02/08/2024 Active Vitamin D3 250 MCG (70733 UT) Oral Tablet (Cholecalciferol) Take 1 Tablet by mouth every evening. Active Timolol Maleate 0.25 % Ophthalmic Solution (Timoptic) Instill 1 Drop into both eyes in the morning and 1 Drop before bedtime. 07/07/2023 Active Pen [place] 31G X 5 MMIndications:Type 1 diabetes mellitus with hemoglobin A1c goal of less than 7.0% ([facility]) Use as directed. 400 Each 3 [...] as of this encounter (statuses as of 08/31/2024) Active Problems Problem Noted Date Diagnosed Date [...] as of this encounter (statuses as of 08/31/2024) Resolved Problems Problem Noted Date Diagnosed Date Resolved Date RENAL INSUFFICIENCY 07/08/2010 03/02/20 24 documented as of this encounter (statuses as of 08/31/2024) Immunizations Name Administration Dates Next Due COVID-19 [...] encounter Miscellaneous Notes * Telephone Encounter - Xiomara Jack LPN - 08/31/2024 10:24 AM EDT Information faxed as requested * Telephone Encounter - Ruth Ray OSA - 08/31/2024 8:10 AM EDT Marialuisa Teague the Interim Infection control nurse at [facility] is requesting alll immunization records to be faxed to her attention at [phone]. Any questions please call [phone]. Thank you. documented in this encounter Plan of Treatment Health Maintenance Due Date Last Done Comments Hepatitis C Screening 1963 Adult Wellness Visit 2011 Diabetic Foot Exam 05/15/2012 05/15/2011, 06/02/2010 CKD PHOS USE SMARTSET 86766 06/15/2024 06/15/2023 COVID-19 Vaccine ( season) 2024 [...] Additional history exists CKD HGB USE SMARTSET 78231 08/16/202508/16, 08/05/2024, 07/29/2024, Additional history exists DTap/Tdap [...] filedocumented as of this encounter Care Teams Battery Checker Relationship Specialty Start Date End Date Louisa Quiroga DO [address] [facility] [address] [address] PCP - General Family Medicine 07/03/24 documented as of this encounter
--- OUTSIDE RECORDS SUMMARY | 2024-10-03 11:17 | External Medical Summary | Continuity Of Care Document ---
Author Name Unknown Address [address] [address] Organization [facility] () Care Team Providers Care Photographic Editor Name Role Phone DO Machado Amy Primary Care Provider [phone] Allergies Allergy Reaction Start Date End Date [...] 3 0.1 mL 08/29 Inactiv e 2023 04064 53344 0 1 time Intrad ermal False Tubersol 5 tub. unit/0.1 mL intradermal injection solution [Tuberculin PPD] 0.1mL Intradermal 1 time For PPD 2nd Step Give 2nd Step PPD Day 1 and Read results Day 3 (schedule 7 days after 1st READ) 0.1mL 09/08 Active 2023 97323 58187 0 1 time Intrad ermal False Humalog [...] order For Diabetes 08/25 Inactiv e 2023 18545 49138 9 4 times a day Subcut aneous False Aspirin 325 mg tablet [generic] 325 By Mouth Twice daily For Anticoagulati on 325 09/25 Active 2023 08564 66778 1 Twice daily By Mouth False Ferrous sulfate 325 mg (65 mg iron) tablet [generic] 325 By Mouth Once daily For anemia 325 2023 Active 2023 40186 91674 5 Once daily By Mouth False Linezolid 600 mg tablet [generic] 600 mg By Mouth Every 12 hours For MRSA INFECTION L BKA 600 mg 08/25 Inactiv e 2023 09718 51319 1 Every 12 hours By Mouth False Cefpodoxime 200 mg tablet [generic] 400 mg By Mouth Twice daily For MRSA INFECTION L BKA 400 mg 08/25 Inactiv e 2023 21143 67878 0 Twice daily By Mouth False Coenzyme Q10 100 mg tablet [generic] 100 mg By Mouth Once daily For SUPP 100 mg 2023 Active 2023 04073 40550 0 Once daily By Mouth False Levothyroxi ne 50 mcg tablet [generic] 50mcg By Mouth Once daily For hypothyroidis m 50mcg 2023 Active 2023 58416 04306 0 Once daily By Mouth False One A Day Men Complete 240 mcg-25 mcg-300 mcg tablet 1 tab By Mouth Once daily For supplement 1 tab 2023 Active 2023 35593 43348 1 Once daily By Mouth False Cholecalcif adalberto (vitamin D3) 50 mcg (2,000 unit) tablet [generic] 1 TAB By Mouth Once daily For SUPP 1 TAB 2023 Active 2023 48961 46631 1 Once daily By Mouth False Cetirizine 10 mg tablet [generic] 1 TAB By Mouth At bedtime For Allergies 1 TAB 2023 Active 2023 18203 21752 0 At bedtime By Mouth False Timolol maleate 0.25 % eye drops [generic] 1 drop Both Eyes Twice daily For glaucoma 1 drop 2023 Active 2023 21757 22611 5 Twice daily Both Eyes False Alendronate 35 mg tablet [generic] 35mg By Mouth Every week For SIADH 35mg 2023 Active 2023 75350 33866 5 Every week By Mouth False Lantus Solostar U-100 Insulin 100 unit/mL (3 mL) subcutaneou s pen 18 units Subcutaneous Every morning For DIABETES 18 units 08/25 Inactiv e 2023 67951 67866 0 Every morning Subcut aneous False Lantus Solostar U-100 Insulin 100 unit/mL (3 mL) subcutaneou s pen 18 units Subcutaneous Every morning For DIABETES 18 units 2023 Active 2023 24006 34979 0 Every morning Subcut aneous False Linezolid 600 mg tablet [generic] 600 mg By Mouth Every 12 hours For MRSA INFECTION L BKA 600 mg 08/28 Inactiv e 2023 54587 74419 1 Every 12 hours By Mouth False [...] Call Provider for one-time order For Diabetes 2023 Active 2023 61359 46797 9 4 times a day Subcut aneous False Cefpodoxime 200 mg tablet [generic] 400 mg By Mouth Twice daily For MRSA INFECTION L BKA 400 mg 08/28 Inactiv e 2023 04380 19379 0 Twice daily By Mouth False Brimonidine 0.1 % eye drops [generic] 1 drop Both Eyes Twice daily For glaucoma 1 drop 2023 Active 2023 18907 03002 0 Twice daily Both Eyes False Metoprolol succinate ER 50 mg tablet,exte nded release 24 hr [generic] 50 mg By Mouth Once daily HOLD FOR SBP <100, or pulse <60 For HTN 50 mg 2023 Active 2023 29509 76338 1 Once daily By Mouth False Amlodipine 2.5 mg tablet [generic] 2.5 mg By Mouth Once daily For HTN 2.5 mg 2023 Active 2023 81488 87695 5 Once daily By Mouth False Docusate sodium 100 mg capsule [generic] 100mg By Mouth Twice daily as needed For constipation HOLD FOR LOOSE STOOLS 100mg 2023 Active 2023 58653 27349 1 Twice daily as needed By Mouth False Atorvastati n 40 mg tablet [generic] 40mg By Mouth Once daily For HDL 40mg 08/26 Inactiv e 2023 44884 67754 5 Once daily By Mouth False Tylenol 325 mg tablet 2 tabs By Mouth Every 4 hours as needed For Pain DO NOT EXCEED 3000 MG APAP/24 Hours 2 tabs 2023 Active 2023 81773 35853 0 Every 4 hours as needed By Mouth False Tylenol 325 mg tablet 2 tabs By Mouth Every 4 hours as needed For Fever >100 DO NOT EXCEED 3000 MG APAP/24 Hours 2 tabs 2023 Active 2023 93437 83210 0 Every 4 hours as needed By Mouth False Dulcolax (bisacodyl) 10 mg rectal suppository One Suppository per rectum PRN if Milk of Magnisia ineffective. Give on day 5 of no BM 1 sup 2023 Active 2023 35943 49040 1 Daily as needed Rectal False Fleet Enema 19 gram-7 gram/118 mL Administer per rectum PRN one time if dulcolax suppository not effective. Give on day 6 of no BM 1 2023 Active 2023 64774 29027 6 Daily as needed Rectal False Dextrose 50 % in water (D50W) intravenous solution [generic] Dextrose 50% evonne 20-50 ml (slow push) Intravenous if Glucagon not effective after 15 minutes. CALL 911 for ED Evaluation. 50% evonne 2023 Active 2023 10988 35387 9 Intrav enous False Glucagon (HCl) Emergency Kit 1 mg solution for injection Administer Glucagon 1 mg Intramuscular if 15 minutes after GLucose Gel is administered Glucose remains less than 70 1 mg 2023 Active 2023 00926 01771 2 Intram uscula r False Glucose Gel 40 % oral gel [Dextrose] PRN If resident is unable to swallow (with or without symptoms) and Glucose results less than 70 give GLucose 40% Gel 1 tube orally - Recheck Glucose 15 minutes after administratio n. 1 tube 2023 Active 2023 60004 85334 8 By Mouth False Milk of Magnesia 400 mg/5 mL oral suspension [Magnesium hydroxide] PRN 30ml By Mouth Daily as needed for constipation one time daily if no BM, on day 4 of no BM (PRN refer to instructions) For Constipation 30 mL 2023 Active 2023 56640 42399 6 Daily as needed By Mouth False Atorvastati n 40 mg tablet [generic] 08/26 Inactiv e 2023 03241 23851 5 Atorvastati n 40 mg tablet [generic] 40mg By Mouth Once daily For HDL 40mg 2023 Active 2023 41289 73751 5 Once daily By Mouth False Insulin aspart (U-100) 100 unit/mL (3 mL) subcutaneou s pen [generic] 15 units Subcutaneous 1 time For dm 15 units 08/26 Inactiv e 2023 17505 89696 5 1 time Subcut aneous False Humalog KwikPen (U-100) Insulin 100 unit/mL subcutaneou s 15 units Subcutaneous 1 time For dm 15 units 08/27 Inactiv e 2023 61421 07660 9 1 time Subcut aneous False Linezolid 600 mg tablet [generic] 600 mg By Mouth Every 12 hours For MRSA INFECTION L BKA 600 mg 09/06 Active 2023 34793 33695 1 Every 12 hours By Mouth False Cefpodoxime 200 mg tablet [generic] 400 mg By Mouth Twice daily For MRSA INFECTION L BKA 400 mg 08/31 Inactiv e 2023 99072 01765 0 Twice daily By Mouth False Senna 8.6 mg tablet 8.6 mg By Mouth Once daily For Constipation 8.6 mg 2023 Active 2023 17326 37495 1 Once daily By Mouth False MediHoney HCS 4 1/2in X 4 1/2in bandage Cleanse area with NSS, apply one medihoney hydrocolloid dressing, non adherent dressing, kerlix secure with paper tape daily. For wound stage III 1 2023 Active 2023 68117 39160 1 Once daily Topica l False Problems Code Description Start Date End Date Status D64.9 Anemia, unspecified 08/25/2024 Activ e I25.10 Atherosclerotic hear t disease of [place] coronary artery without angina pectoris 08/25/2024 [...] weight Temperature SpO2 Blood Sugar Pulse Respirations 17739 8 67.00 mm[Hg] - Sitting 145.00 mm[Hg] - Sitting 98.50 Forehead Scan 96.00 % 81.00/ min 16.00/min 69844 004 50098 2 67.00 mm[Hg] - Sitting 145.00 mm[Hg] - Sitting 98.50 Tympanic 81.00/ min 16.00/min 01808 004 66783 5 56.00 mm[Hg] - Sitting 142.00 mm[Hg] - Sitting 136.40 NI 100.20 Tympanic 96.00 % 92.00/ min 18.00/min 93485 004 43785 6 99989 004 20859 4 143.00 mg/dL 64128 0 97.80 Tympanic 005 87182 7 60.00 mm[Hg] - Sitting 140.00 mm[Hg] - Sitting 98.00 Tympanic 84.00/ min 18.00/min 64197 005 27056 0 63.00 mm[Hg] - Sitting 141.00 mm[Hg] - Sitting 98.20 Tympanic 92.00 % 63.00/ min 16.00/min 75309 005 49956 8 69.00 mm[Hg] - Sitting 106.00 mm[Hg] - Sitting 97.20 Tympanic 54603 005 70439 7 69.00/ min 16.00/min 70398 005 87319 3 69.00 mm[Hg] - Sitting 106.00 mm[Hg] - Sitting 98.20 Tympanic 69.00/ min 16.00/min 32673 005 69436 1 367.00 mg/dL 27074 005 72508 2 97.20 Tympanic 90737 005 05643 4 97.20 Tympanic 80557 005 26069 0 69.00 mm[Hg] - Sitting 106.00 mm[Hg] - Sitting 69.00/ min 55744 005 76102 3 452.00 mg/dL 26762 005 82264 3 452.00 mg/dL 83612 005 75412 5 352.00 mg/dL 07661 005 27669 3 352.00 mg/dL 88363 005 26033 7 98.20 Tympanic 18295 005 42725 3 101.00 mg/dL 97859 005 74020 8 101.00 mg/dL 88193 006 34660 4 66.00 mm[Hg] - Sitting 107.00 mm[Hg] - Sitting 98.00 Tympanic 66.00/ min 18.00/min 85045 006 62189 0 62.00 mm[Hg] - Sitting 162.00 mm[Hg] - Sitting 98.20 Tympanic 96.00 % 60.00/ min 16.00/min 49937 006 81575 4 62.00 mm[Hg] - Sitting 162.00 mm[Hg] - Sitting 98.00 Tympanic 70.00/ min 18.00/min 19960 006 14011 8 62.00 mm[Hg] - Sitting 162.00 mm[Hg] - Sitting 98.20 Tympanic 70.00/ min 18.00/min 34081 006 84813 2 66.00 mm[Hg] - Sitting 132.00 mm[Hg] - Sitting 98.60 Tympanic 74.00/ min 16.00/min 86149 006 36251 5 159.00 mg/dL 73875 006 24646 1 159.00 mg/dL 50906 006 81539 8 98.00 Tympanic 06649 006 30750 2 62.00 mm[Hg] - Sitting 162.00 mm[Hg] - Sitting 70.00/ min 03966 006 99755 7 264.00 mg/dL 56395 006 58457 7 264.00 mg/dL 80401 006 82776 4 196.00 mg/dL 53466 006 40787 3 98.20 Tympanic 23468 006 66482 6 271.00 mg/dL 27838 007 86662 3 97.20 Tympanic 86891 007 73306 2 63.00 mm[Hg] - Sitting 132.00 mm[Hg] - Sitting 98.50 Tympanic 94.00 % 66.00/ min 16.00/min 69629 007 68469 5 188.00 mg/dL 76913 007 63807 2 188.00 mg/dL 14881 007 02530 2 188.00 mg/dL 44230 007 91990 7 97.20 Tympanic 01999 007 16912 6 97.20 Tympanic 65856 007 86387 5 67.00 mm[Hg] - Sitting 152.00 mm[Hg] - Sitting 68.00/ min 37125 007 28793 0 141.00 mg/dL 23273 007 09268 3 141.00 mg/dL 51476 007 07821 1 366.00 mg/dL 90937 007 36679 7 366.00 mg/dL 22641 007 94132 7 98.00 Tympanic 07353 007 14144 6 324.00 mg/dL 12124 007 19680 3 98.00 Tympanic 21939 007 82335 7 324.00 mg/dL 47832 008 67463 0 98.00 Tympanic 83143 008 89099 2 97.90 Tympanic 60252 008 41239 0 98.20 Tympanic 02137 008 15744 0 73.00 mm[Hg] - Sitting 156.00 mm[Hg] - Sitting 98.60 Tympanic 99.00 % 66.00/ min 20.00/min 63789 008 21679 5 137.00 mg/dL 44363 008 56319 7 137.00 mg/dL 81036 008 59747 2 97.90 Tympanic 65394 008 14794 1 137.00 mg/dL 27971 008 40127 8 97.90 Tympanic 60208 008 99041 5 67.00 mm[Hg] - Sitting 124.00 /min 69436 008 22167 6 212.00 mg/dL 18636 008 46349 6 212.00 mg/dL 50883 008 14410 9 317.00 mg/dL 47525 008 31431 4 317.00 mg/dL 79333 008 53658 8 252.00 mg/dL 27873 008 19996 0 98.70 Tympanic 00613 008 98699 7 252.00 mg/dL 68520 008 78371 3 98.70 Tympanic 43170 009 57695 9 98.70 Tympanic 12799 009 51237 3 98.20 Tympanic 68672 009 01683 5 98.40 Tympanic 46589 009 93431 5 57.00 mm[Hg] - Sitting 129.00 mm[Hg] - Sitting 98.30 Tympanic 97.00 % 65.00/ min 18.00/min 34174 009 12544 1 255.00 mg/dL 00841 009 63417 4 255.00 mg/dL 24237 009 04975 5 98.20 Tympanic 24410 009 21519 0 255.00 mg/dL 20069 009 71201 0 98.20 Tympanic 43667 009 77103 4 63.00 mm[Hg] - Lying Down 102.00 mm[Hg] - Lying Down 58.00/ min 42825 009 04582 0 167.00 mg/dL 02364 009 48870 1 167.00 mg/dL 47405 009 30525 2 164.00 mg/dL 20218 009 18476 1 164.00 mg/dL 15755 009 61045 5 208.00 mg/dL 93394 010 13824 2 214.00 mg/dL 92163 010 28176 0 214.00 mg/dL 83523 010 66595 7 214.00 mg/dL 25268 010 93619 6 64.00 mm[Hg] - Sitting 110.00 mm[Hg] - Sitting 72.00/ min 15216 010 94664 7 98.40 Tympanic
--- OUTSIDE RECORDS SUMMARY | 2024-10-03 11:17 | External Medical Summary | Continuity Of Care Document ---
Author Name Unknown Address [address] [address] Organization [facility] () Care Team Providers Care Analog Design Engineer Name Role Phone DO Machado Amy Primary Care Provider [phone] Allergies Allergy Reaction Start Date End Date [...] 3 0.1 mL 08/29 Inactiv e 2023 64508 06916 0 1 time Intrad ermal False Tubersol 5 tub. unit/0.1 mL intradermal injection solution [Tuberculin PPD] 0.1mL Intradermal 1 time For PPD 2nd Step Give 2nd Step PPD Day 1 and Read results Day 3 (schedule 7 days after 1st READ) 0.1mL 09/08 Active 2023 12544 86707 0 1 time Intrad ermal False Humalog [...] order For Diabetes 08/25 Inactiv e 2023 73616 96346 9 4 times a day Subcut aneous False Aspirin 325 mg tablet [generic] 325 By Mouth Twice daily For Anticoagulati on 325 09/25 Active 2023 60641 26078 1 Twice daily By Mouth False Ferrous sulfate 325 mg (65 mg iron) tablet [generic] 325 By Mouth Once daily For anemia 325 2023 Active 2023 09372 24457 5 Once daily By Mouth False Linezolid 600 mg tablet [generic] 600 mg By Mouth Every 12 hours For MRSA INFECTION L BKA 600 mg 08/25 Inactiv e 2023 54022 00803 1 Every 12 hours By Mouth False Cefpodoxime 200 mg tablet [generic] 400 mg By Mouth Twice daily For MRSA INFECTION L BKA 400 mg 08/25 Inactiv e 2023 07641 46707 0 Twice daily By Mouth False Coenzyme Q10 100 mg tablet [generic] 100 mg By Mouth Once daily For SUPP 100 mg 2023 Active 2023 44877 52521 0 Once daily By Mouth False Levothyroxi ne 50 mcg tablet [generic] 50mcg By Mouth Once daily For hypothyroidis m 50mcg 2023 Active 2023 14805 07814 0 Once daily By Mouth False One A Day Men Complete 240 mcg-25 mcg-300 mcg tablet 1 tab By Mouth Once daily For supplement 1 tab 2023 Active 2023 94469 22866 1 Once daily By Mouth False Cholecalcif adalberto (vitamin D3) 50 mcg (2,000 unit) tablet [generic] 1 TAB By Mouth Once daily For SUPP 1 TAB 2023 Active 2023 47486 92651 1 Once daily By Mouth False Cetirizine 10 mg tablet [generic] 1 TAB By Mouth At bedtime For Allergies 1 TAB 2023 Active 2023 05152 84087 0 At bedtime By Mouth False Timolol maleate 0.25 % eye drops [generic] 1 drop Both Eyes Twice daily For glaucoma 1 drop 2023 Active 2023 51021 62936 5 Twice daily Both Eyes False Alendronate 35 mg tablet [generic] 35mg By Mouth Every week For SIADH 35mg 2023 Active 2023 32996 86998 5 Every week By Mouth False Lantus Solostar U-100 Insulin 100 unit/mL (3 mL) subcutaneou s pen 18 units Subcutaneous Every morning For DIABETES 18 units 08/25 Inactiv e 2023 17835 68785 0 Every morning Subcut aneous False Lantus Solostar U-100 Insulin 100 unit/mL (3 mL) subcutaneou s pen 18 units Subcutaneous Every morning For DIABETES 18 units 2023 Active 2023 55972 47417 0 Every morning Subcut aneous False Linezolid 600 mg tablet [generic] 600 mg By Mouth Every 12 hours For MRSA INFECTION L BKA 600 mg 08/28 Inactiv e 2023 95028 21611 1 Every 12 hours By Mouth False [...] one-time order For Diabetes 2023 Active 2023 17342 08712 9 4 times a day Subcut aneous False Cefpodoxime 200 mg tablet [generic] 400 mg By Mouth Twice daily For MRSA INFECTION L BKA 400 mg 08/28 Inactiv e 2023 74312 52292 0 Twice daily By Mouth False Brimonidine 0.1 % eye drops [generic] 1 drop Both Eyes Twice daily For glaucoma 1 drop 2023 Active 2023 67524 70959 0 Twice daily Both Eyes False Metoprolol succinate ER 50 mg tablet,exte nded release 24 hr [generic] 50 mg By Mouth Once daily HOLD FOR SBP <100, or pulse <60 For HTN 50 mg 2023 Active 2023 54150 46049 1 Once daily By Mouth False Amlodipine 2.5 mg tablet [generic] 2.5 mg By Mouth Once daily For HTN 2.5 mg 2023 Active 2023 17915 30536 5 Once daily By Mouth False Docusate sodium 100 mg capsule [generic] 100mg By Mouth Twice daily as needed For constipation HOLD FOR LOOSE STOOLS 100mg 2023 Active 2023 39632 13903 1 Twice daily as needed By Mouth False Atorvastati n 40 mg tablet [generic] 40mg By Mouth Once daily For HDL 40mg 08/26 Inactiv e 2023 38861 77882 5 Once daily By Mouth False Tylenol 325 mg tablet 2 tabs By Mouth Every 4 hours as needed For Pain DO NOT EXCEED 3000 MG APAP/24 Hours 2 tabs 2023 Active 2023 52367 57092 0 Every 4 hours as needed By Mouth False Tylenol 325 mg tablet 2 tabs By Mouth Every 4 hours as needed For Fever >100 DO NOT EXCEED 3000 MG APAP/24 Hours 2 tabs 2023 Active 2023 75551 47383 0 Every 4 hours as needed By Mouth False Dulcolax (bisacodyl) 10 mg rectal suppository One Suppository per rectum PRN if Milk of Magnisia ineffective. Give on day 5 of no BM 1 sup 2023 Active 2023 25696 85334 1 Daily as needed Rectal False Fleet Enema 19 gram-7 gram/118 mL Administer per rectum PRN one time if dulcolax suppository not effective. Give on day 6 of no BM 1 2023 Active 2023 00450 30628 6 Daily as needed Rectal False Dextrose 50 % in water (D50W) intravenous solution [generic] Dextrose 50% evonne 20-50 ml (slow push) Intravenous if Glucagon not effective after 15 minutes. CALL 911 for ED Evaluation. 50% evonne 2023 Active 2023 26690 13593 9 Intrav enous False Glucagon (HCl) Emergency Kit 1 mg solution for injection Administer Glucagon 1 mg Intramuscular if 15 minutes after GLucose Gel is administered Glucose remains less than 70 1 mg 2023 Active 2023 86976 85365 2 Intram uscula r False Glucose Gel 40 % oral gel [Dextrose] PRN If resident is unable to swallow (with or without symptoms) and Glucose results less than 70 give GLucose 40% Gel 1 tube orally - Recheck Glucose 15 minutes after administratio n. 1 tube 2023 Active 2023 18358 39935 8 By Mouth False Milk of Magnesia 400 mg/5 mL oral suspension [Magnesium hydroxide] PRN 30ml By Mouth Daily as needed for constipation one time daily if no BM, on day 4 of no BM (PRN refer to instructions) For Constipation 30 mL 2023 Active 2023 82411 00277 6 Daily as needed By Mouth False Atorvastati n 40 mg tablet [generic] 08/26 Inactiv e 2023 76538 96535 5 Atorvastati n 40 mg tablet [generic] 40mg By Mouth Once daily For HDL 40mg 2023 Active 2023 36434 20310 5 Once daily By Mouth False Insulin aspart (U-100) 100 unit/mL (3 mL) subcutaneou s pen [generic] 15 units Subcutaneous 1 time For dm 15 units 08/26 Inactiv e 2023 72668 67857 5 1 time Subcut aneous False Humalog KwikPen (U-100) Insulin 100 unit/mL subcutaneou s 15 units Subcutaneous 1 time For dm 15 units 08/27 Inactiv e 2023 91136 91003 9 1 time Subcut aneous False Linezolid 600 mg tablet [generic] 600 mg By Mouth Every 12 hours For MRSA INFECTION L BKA 600 mg 09/06 Active 2023 82011 44775 1 Every 12 hours By Mouth False Cefpodoxime 200 mg tablet [generic] 400 mg By Mouth Twice daily For MRSA INFECTION L BKA 400 mg 08/31 Inactiv e 2023 62747 86782 0 Twice daily By Mouth False Senna 8.6 mg tablet 8.6 mg By Mouth Once daily For Constipation 8.6 mg 2023 Active 2023 14242 34280 1 Once daily By Mouth False MediHoney HCS 4 1/2in X 4 1/2in bandage Cleanse area with NSS, apply one medihoney hydrocolloid dressing, non adherent dressing, kerlix secure with paper tape daily. 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 08/25/2024 [...] weight Temperature SpO2 Blood Sugar Pulse Respirations 05936 8 67.00 mm[Hg] - Sitting 145.00 mm[Hg] - Sitting 98.50 Forehead Scan 96.00 % 81.00/ min 16.00/min 35266 004 97163 2 67.00 mm[Hg] - Sitting 145.00 mm[Hg] - Sitting 98.50 Tympanic 81.00/ min 16.00/min 53780 004 55691 5 56.00 mm[Hg] - Sitting 142.00 mm[Hg] - Sitting 136.40 NI 100.20 Tympanic 96.00 % 92.00/ min 18.00/min 94156 004 42494 6 15494 004 13586 4 143.00 mg/dL 29570 0 97.80 Tympanic 005 53511 7 60.00 mm[Hg] - Sitting 140.00 mm[Hg] - Sitting 98.00 Tympanic 84.00/ min 18.00/min 48499 005 22273 0 63.00 mm[Hg] - Sitting 141.00 mm[Hg] - Sitting 98.20 Tympanic 92.00 % 63.00/ min 16.00/min 74309 005 88313 8 69.00 mm[Hg] - Sitting 106.00 mm[Hg] - Sitting 97.20 Tympanic 47557 005 49482 7 69.00/ min 16.00/min 96026 005 60709 3 69.00 mm[Hg] - Sitting 106.00 mm[Hg] - Sitting 98.20 Tympanic 69.00/ min 16.00/min 56979 005 60093 1 367.00 mg/dL 69467 005 69458 2 97.20 Tympanic 57024 005 83424 4 97.20 Tympanic 26461 005 49959 0 69.00 mm[Hg] - Sitting 106.00 mm[Hg] - Sitting 69.00/ min 11897 005 25657 3 452.00 mg/dL 45563 005 19473 3 452.00 mg/dL 27723 005 00314 5 352.00 mg/dL 61452 005 94881 3 352.00 mg/dL 63445 005 29195 7 98.20 Tympanic 60754 005 36881 3 101.00 mg/dL 53182 005 01123 8 101.00 mg/dL 64984 006 92243 4 66.00 mm[Hg] - Sitting 107.00 mm[Hg] - Sitting 98.00 Tympanic 66.00/ min 18.00/min 13810 006 09181 0 62.00 mm[Hg] - Sitting 162.00 mm[Hg] - Sitting 98.20 Tympanic 96.00 % 60.00/ min 16.00/min 05884 006 81741 4 62.00 mm[Hg] - Sitting 162.00 mm[Hg] - Sitting 98.00 Tympanic 70.00/ min 18.00/min 27887 006 22653 8 62.00 mm[Hg] - Sitting 162.00 mm[Hg] - Sitting 98.20 Tympanic 70.00/ min 18.00/min 94472 006 95642 2 66.00 mm[Hg] - Sitting 132.00 mm[Hg] - Sitting 98.60 Tympanic 74.00/ min 16.00/min 21490 006 42362 5 159.00 mg/dL 58773 006 07553 1 159.00 mg/dL 69772 006 30963 8 98.00 Tympanic 18130 006 07153 2 62.00 mm[Hg] - Sitting 162.00 mm[Hg] - Sitting 70.00/ min 09003 006 24867 7 264.00 mg/dL 34464 006 84845 7 264.00 mg/dL 39544 006 15283 4 196.00 mg/dL 77527 006 34500 3 98.20 Tympanic 30107 006 27901 6 271.00 mg/dL 27229 007 43490 3 97.20 Tympanic 89966 007 03900 2 63.00 mm[Hg] - Sitting 132.00 mm[Hg] - Sitting 98.50 Tympanic 94.00 % 66.00/ min 16.00/min 75701 007 51450 5 188.00 mg/dL 11003 007 98982 2 188.00 mg/dL 84697 007 52884 2 188.00 mg/dL 58037 007 21729 7 97.20 Tympanic 27842 007 14252 6 97.20 Tympanic 89474 007 76380 5 67.00 mm[Hg] - Sitting 152.00 mm[Hg] - Sitting 68.00/ min 32835 007 42702 0 141.00 mg/dL 54292 007 86052 3 141.00 mg/dL 13675 007 32050 1 366.00 mg/dL 82779 007 36031 7 366.00 mg/dL 30917 007 00666 7 98.00 Tympanic 97097 007 72439 6 324.00 mg/dL 34871 007 96981 3 98.00 Tympanic 29424 007 79208 7 324.00 mg/dL 91629 008 70899 0 98.00 Tympanic 70013 008 88650 2 97.90 Tympanic 46054 008 95317 0 98.20 Tympanic 39638 008 03969 0 73.00 mm[Hg] - Sitting 156.00 mm[Hg] - Sitting 98.60 Tympanic 99.00 % 66.00/ min 20.00/min 21975 008 60992 5 137.00 mg/dL 54230 008 00804 7 137.00 mg/dL 98568 008 57430 2 97.90 Tympanic 55991 008 63522 1 137.00 mg/dL 02884 008 49975 8 97.90 Tympanic 99962 008 33593 5 67.00 mm[Hg] - Sitting 124.00 /min 82572 008 40456 6 212.00 mg/dL 50238 008 42111 6 212.00 mg/dL 18815 008 39142 9 317.00 mg/dL 48730 008 37993 4 317.00 mg/dL 30611 008 23135 8 252.00 mg/dL 53796 008 71436 0 98.70 Tympanic 43483 008 72587 7 252.00 mg/dL 22425 008 80813 3 98.70 Tympanic 40611 009 49654 9 98.70 Tympanic 29673 009 42983 3 98.20 Tympanic 26235 009 42307 5 98.40 Tympanic 65038 009 12491 5 57.00 mm[Hg] - Sitting 129.00 mm[Hg] - Sitting 98.30 Tympanic 97.00 % 65.00/ min 18.00/min 67109 009 38851 1 255.00 mg/dL 99594 009 73705 4 255.00 mg/dL 25257 009 01667 5 98.20 Tympanic 89846 009 63911 0 255.00 mg/dL 38113 009 94060 0 98.20 Tympanic 58902 009 90227 4 63.00 mm[Hg] - Lying Down 102.00 mm[Hg] - Lying Down 58.00/ min 06801 009 45548 0 167.00 mg/dL 95071 009 06153 1 167.00 mg/dL 65542 009 60966 2 164.00 mg/dL 17676 009 20733 1 164.00 mg/dL 49073 009 23854 5 208.00 mg/dL 72164 010 91923 2 214.00 mg/dL 06071 010 03992 0 214.00 mg/dL 38010 010 63529 7 214.00 mg/dL 91660 010 75617 6 64.00 mm[Hg] - Sitting 110.00 mm[Hg] - Sitting 72.00/ min 65360 010 20274 7 98.40 Tympanic
--- OUTSIDE RECORDS SUMMARY | 2024-10-03 11:17 | External Medical Summary | Continuity Of Care Document ---
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 unit/0.1 mL intradermal injection solution [Tuberculin PPD] 0.1mL Intradermal 1 time For PPD 2nd Step Give 2nd Step PPD Day 1 and Read results Day 3 (schedule 7 days after 1st READ) 0.1mL 09/08 Active 2023 59004 61893 0 1 time Intrad ermal False Humalog [...] order For Diabetes 08/25 Inactiv e 2023 36416 07943 9 4 times a day Subcut aneous False Aspirin 325 mg tablet [generic] 325 By Mouth Twice daily For Anticoagulati on 325 09/25 Active 2023 20442 20006 1 Twice daily By Mouth False Ferrous sulfate 325 mg (65 mg iron) tablet [generic] 325 By Mouth Once daily For anemia 325 2023 Active 2023 17320 12242 5 Once daily By Mouth False Linezolid 600 mg tablet [generic] 600 mg By Mouth Every 12 hours For MRSA INFECTION L BKA 600 mg 08/25 Inactiv e 2023 36977 53155 1 Every 12 hours By Mouth False Cefpodoxime 200 mg tablet [generic] 400 mg By Mouth Twice daily For MRSA INFECTION L BKA 400 mg 08/25 Inactiv e 2023 15808 88904 0 Twice daily By Mouth False Coenzyme Q10 100 mg tablet [generic] 100 mg By Mouth Once daily For SUPP 100 mg 2023 Active 2023 73411 50486 0 Once daily By Mouth False Levothyroxi ne 50 mcg tablet [generic] 50mcg By Mouth Once daily For hypothyroidis m 50mcg 2023 Active 2023 24681 86464 0 Once daily By Mouth False One A Day Men Complete 240 mcg-25 mcg-300 mcg tablet 1 tab By Mouth Once daily For supplement 1 tab 2023 Active 2023 52848 25891 1 Once daily By Mouth False Cholecalcif adalberto (vitamin D3) 50 mcg (2,000 unit) tablet [generic] 1 TAB By Mouth Once daily For SUPP 1 TAB 2023 Active 2023 89766 53677 1 Once daily By Mouth False Cetirizine 10 mg tablet [generic] 1 TAB By Mouth At bedtime For Allergies 1 TAB 2023 Active 2023 44850 98293 0 At bedtime By Mouth False Timolol maleate 0.25 % eye drops [generic] 1 drop Both Eyes Twice daily For glaucoma 1 drop 2023 0000 /0000 Active 2023 98756 93325 5 Twice daily Both Eyes False Alendronate 35 mg tablet [generic] 35mg By Mouth Every week For SIADH 35mg 08/31 Inactiv e 2023 99599 38080 5 Every week By Mouth False Lantus Solostar U-100 Insulin 100 unit/mL (3 mL) subcutaneou s pen 18 units Subcutaneous Every morning For DIABETES 18 units 08/25 Inactiv e 2023 34907 91802 0 Every morning Subcut aneous False Lantus Solostar U-100 Insulin 100 unit/mL (3 mL) subcutaneou s pen 18 units Subcutaneous Every morning For DIABETES 18 units 2023 Active 2023 99413 07633 0 Every morning Subcut aneous False Linezolid 600 mg tablet [generic] 600 mg By Mouth Every 12 hours For MRSA INFECTION L BKA 600 mg 08/28 Inactiv e 2023 88044 30574 1 Every 12 hours By Mouth False [...] order For Diabetes 08/31 Inactiv e 2023 70792 76256 9 4 times a day Subcut aneous False Cefpodoxime 200 mg tablet [generic] 400 mg By Mouth Twice daily For MRSA INFECTION L BKA 400 mg 08/28 Inactiv e 2023 03852 66678 0 Twice daily By Mouth False Brimonidine 0.1 % eye drops [generic] 1 drop Both Eyes Twice daily For glaucoma 1 drop 2023 Active 2023 02031 47324 0 Twice daily Both Eyes False Metoprolol succinate ER 50 mg tablet,exte nded release 24 hr [generic] 50 mg By Mouth Once daily HOLD FOR SBP <100, or pulse <60 For HTN 50 mg 2023 Active 2023 42636 24942 1 Once daily By Mouth False Amlodipine 2.5 mg tablet [generic] 2.5 mg By Mouth Once daily For HTN 2.5 mg 2023 Active 2023 56473 40180 5 Once daily By Mouth False Docusate sodium 100 mg capsule [generic] 100mg By Mouth Twice daily as needed For constipation HOLD FOR LOOSE STOOLS 100mg 2023 Active 2023 38410 78441 1 Twice daily as needed By Mouth False Atorvastati n 40 mg tablet [generic] 40mg By Mouth Once daily For HDL 40mg 08/26 Inactiv e 2023 15653 30947 5 Once daily By Mouth False Tylenol 325 mg tablet 2 tabs By Mouth Every 4 hours as needed For Pain DO NOT EXCEED 3000 MG APAP/24 Hours 2 tabs 2023 Active 2023 41807 35972 0 Every 4 hours as needed By Mouth False Tylenol 325 mg tablet 2 tabs By Mouth Every 4 hours as needed For Fever >100 DO NOT EXCEED 3000 MG APAP/24 Hours 2 tabs 2023 Active 2023 31429 13115 0 Every 4 hours as needed By Mouth False Dulcolax (bisacodyl) 10 mg rectal suppository One Suppository per rectum PRN if Milk of Magnisia ineffective. Give on day 5 of no BM 1 sup 2023 Active 2023 89232 03392 1 Daily as needed Rectal False Fleet Enema 19 gram-7 gram/118 mL Administer per rectum PRN one time if dulcolax suppository not effective. Give on day 6 of no BM 1 2023 Active 2023 16597 65308 6 Daily as needed Rectal False Dextrose 50 % in water (D50W) intravenous solution [generic] Dextrose 50% evonne 20-50 ml (slow push) Intravenous if Glucagon not effective after 15 minutes. CALL 911 for ED Evaluation. 50% evonne 2023 Active 2023 65392 49579 9 Intrav enous False Glucagon (HCl) Emergency Kit 1 mg solution for injection Administer Glucagon 1 mg Intramuscular if 15 minutes after GLucose Gel is administered Glucose remains less than 70 1 mg 2023 Active 2023 13621 02932 2 Intram uscula r False Glucose Gel 40 % oral gel [Dextrose] PRN If resident is unable to swallow (with or without symptoms) and Glucose results less than 70 give GLucose 40% Gel 1 tube orally - Recheck Glucose 15 minutes after administratio n. 1 tube 2023 Active 2023 49173 41513 8 By Mouth False Milk of Magnesia 400 mg/5 mL oral suspension [Magnesium hydroxide] PRN 30ml By Mouth Daily as needed for constipation one time daily if no BM, on day 4 of no BM (PRN refer to instructions) For Constipation 30 mL 2023 Active 2023 20344 97536 6 Daily as needed By Mouth False Atorvastati n 40 mg tablet [generic] 08/26 Inactiv e 2023 90998 60714 5 Atorvastati n 40 mg tablet [generic] 40mg By Mouth Once daily For HDL 40mg 2023 Active 2023 53851 35240 5 Once daily By Mouth False Insulin aspart (U-100) 100 unit/mL (3 mL) subcutaneou s pen [generic] 15 units Subcutaneous 1 time For dm 15 units 08/26 Inactiv e 2023 92459 70477 5 1 time Subcut aneous False Humalog KwikPen (U-100) Insulin 100 unit/mL subcutaneou s 15 units Subcutaneous 1 time For dm 15 units 08/27 Inactiv e 2023 39150 30995 9 1 time Subcut aneous False Linezolid 600 mg tablet [generic] 600 mg By Mouth Every 12 hours For MRSA INFECTION L BKA 600 mg 09/06 Active 2023 48129 49477 1 Every 12 hours By Mouth False Cefpodoxime 200 mg tablet [generic] 400 mg By Mouth Twice daily For MRSA INFECTION L BKA 400 mg 08/31 Inactiv e 2023 26734 99106 0 Twice daily By Mouth False Senna 8.6 mg tablet 8.6 mg By Mouth Once daily For Constipation 8.6 mg 2023 Active 2023 89112 71216 1 Once daily By Mouth False Humalog [...] abnormalities . Per Carb 2023 Active 2023 64672 76110 9 4 times a day Subcut aneous False Alendronate 35 mg tablet [generic] 08/31 Inactiv e 2023 20163 04857 5 Alendronate 35 mg tablet [generic] 35mg By Mouth Every week For Osteoporosis 35mg 202300 Active 2023 53933 83209 5 Every week By Mouth False Humalog KwikPen (U-100) Insulin 100 unit/mL subcutaneou s 08/31 Inactiv e 2023 65513 73968 9 MediHoney HCS 4 1/2in X 4 1/2in bandage Cleanse area with NSS, apply one medihoney hydrocolloid dressing, non adherent dressing, kerlix secure with paper tape daily. For wound stage III 1 2023 Active 2023 83856 79991 1 Once daily Juanya l False Problems Code Description Start Date End Date Status D64.9 Anemia, unspecified 08/25/2024 Activ e I25.10 Atherosclerotic hear t disease of [place] coronary artery without angina pectoris 08/25/2024 Active [...] weight Temperature SpO2 Blood Sugar Pulse Respirations 52240 004 95802 8 67.00 mm[Hg] - Sitting 145.00 mm[Hg] - Sitting 98.50 Forehead Scan 96.00 % 81.00/ min 16.00/min 53477 004 37624 2 67.00 mm[Hg] - Sitting 145.00 mm[Hg] - Sitting 98.50 Tympanic 81.00/ min 16.00/min 01493 004 87982 5 56.00 mm[Hg] - Sitting 142.00 mm[Hg] - Sitting 136.40 NI 100.20 Tympanic 96.00 % 92.00/ min 18.00/min 46056 004 83948 6 60882 004 10774 4 143.00 mg/dL 44891 004 19589 0 97.80 Tympanic 68468 005 10243 7 60.00 mm[Hg] - Sitting 140.00 mm[Hg] - Sitting 98.00 Tympanic 84.00/ min 18.00/min 59700 005 17640 0 63.00 mm[Hg] - Sitting 141.00 mm[Hg] - Sitting 98.20 Tympanic 92.00 % 63.00/ min 16.00/min 66767 005 56126 8 69.00 mm[Hg] - Sitting 106.00 mm[Hg] - Sitting 97.20 Tympanic 85408 005 74898 7 69.00/ min 16.00/min 94173 005 93853 3 69.00 mm[Hg] - Sitting 106.00 mm[Hg] - Sitting 98.20 Tympanic 69.00/ min 16.00/min 75569 005 95238 1 367.00 mg/dL 26539 005 62116 2 97.20 Tympanic 12497 005 52978 4 97.20 Tympanic 93526 005 36241 0 69.00 mm[Hg] - Sitting 106.00 mm[Hg] - Sitting 69.00/ min 06203 005 73240 3 452.00 mg/dL 36854 005 88955 3 452.00 mg/dL 22454 005 02846 5 352.00 mg/dL 73281 005 96679 3 352.00 mg/dL 54573 005 73104 7 98.20 Tympanic 80467 005 86748 3 101.00 mg/dL 31555 005 67327 8 101.00 mg/dL 39532 006 73526 4 66.00 mm[Hg] - Sitting 107.00 mm[Hg] - Sitting 98.00 Tympanic 66.00/ min 18.00/min 49947 006 33453 0 62.00 mm[Hg] - Sitting 162.00 mm[Hg] - Sitting 98.20 Tympanic 96.00 % 60.00/ min 16.00/min 86832 006 31680 4 62.00 mm[Hg] - Sitting 162.00 mm[Hg] - Sitting 98.00 Tympanic 70.00/ min 18.00/min 72231 006 32526 8 62.00 mm[Hg] - Sitting 162.00 mm[Hg] - Sitting 98.20 Tympanic 70.00/ min 18.00/min 47471 006 12730 2 66.00 mm[Hg] - Sitting 132.00 mm[Hg] - Sitting 98.60 Tympanic 74.00/ min 16.00/min 65044 006 46600 5 159.00 mg/dL 32133 006 29588 1 159.00 mg/dL 69326 006 32884 8 98.00 Tympanic 12679 006 15876 2 62.00 mm[Hg] - Sitting 162.00 mm[Hg] - Sitting 70.00/ min 85674 006 63224 7 264.00 mg/dL 62885 006 52405 7 264.00 mg/dL 71628 006 10882 4 196.00 mg/dL 65172 006 12400 3 98.20 Tympanic 38178 006 43502 6 271.00 mg/dL 91183 007 73463 3 97.20 Tympanic 54313 007 40036 2 63.00 mm[Hg] - Sitting 132.00 mm[Hg] - Sitting 98.50 Tympanic 94.00 % 66.00/ min 16.00/min 68077 007 96051 5 188.00 mg/dL 23998 007 64978 2 188.00 mg/dL 66395 007 08895 2 188.00 mg/dL 80154 007 33811 7 97.20 Tympanic 37803 007 28944 6 97.20 Tympanic 69081 007 43149 5 67.00 mm[Hg] - Sitting 152.00 mm[Hg] - Sitting 68.00/ min 50759 007 40256 0 141.00 mg/dL 20070 007 97253 3 141.00 mg/dL 93626 007 99988 1 366.00 mg/dL 56908 007 17618 7 366.00 mg/dL 33402 007 50271 7 98.00 Tympanic 77945 007 28700 6 324.00 mg/dL 26566 007 95320 3 98.00 Tympanic 76273 007 48755 7 324.00 mg/dL 62493 008 57116 0 98.00 Tympanic 63613 008 22119 2 97.90 Tympanic 06612 008 97912 0 98.20 Tympanic 65784 008 02227 0 73.00 mm[Hg] - Sitting 156.00 mm[Hg] - Sitting 98.60 Tympanic 99.00 % 66.00/ min 20.00/min 41852 008 38360 5 137.00 mg/dL 91060 008 34152 7 137.00 mg/dL 34092 008 54531 2 97.90 Tympanic 71114 008 03928 1 137.00 mg/dL 03913 008 12079 8 97.90 Tympanic 13632 008 14108 5 67.00 mm[Hg] - Sitting 124.00 /min 29037 008 24577 6 212.00 mg/dL 43168 008 58998 6 212.00 mg/dL 94786 008 09706 9 317.00 mg/dL 79286 008 96598 4 317.00 mg/dL 17347 008 29630 8 252.00 mg/dL 77205 008 05734 0 98.70 Tympanic 32587 008 68061 7 252.00 mg/dL 23462 008 55128 3 98.70 Tympanic 10143 009 88468 9 98.70 Tympanic 13660 009 39991 3 98.20 Tympanic 98082 009 54001 5 98.40 Tympanic 39540 009 30427 5 57.00 mm[Hg] - Sitting 129.00 mm[Hg] - Sitting 98.30 Tympanic 97.00 % 65.00/ min 18.00/min 74545 009 27492 1 255.00 mg/dL 61550 009 80467 4 255.00 mg/dL 65019 009 93492 5 98.20 Tympanic 30865 009 71080 0 255.00 mg/dL 87709 009 08241 0 98.20 Tympanic 53889 009 88608 4 63.00 mm[Hg] - Lying Down 102.00 mm[Hg] - Lying Down 58.00/ min 02015 009 04191 0 167.00 mg/dL 32143 009 19444 1 167.00 mg/dL 81970 009 20957 2 164.00 mg/dL 84514 009 80717 1 164.00 mg/dL 36537 009 44455 5 208.00 mg/dL 52232 010 47360 3 98.40 Tympanic 64546 010 54194 5 98.40 Tympanic 53178 010 01857 7 66 [place] 06206 010 91242 4 60.00 mm[Hg] - Sitting 143.00 mm[Hg] - Sitting 98.90 Tympanic 98.00 % 67.00/ min 18.00/min 77601 010 78612 2 214.00 mg/dL 28614 010 73973 0 214.00 mg/dL 44659 010 98101 7 214.00 mg/dL 53108 010 04061 6 64.00 mm[Hg] - Sitting 110.00 mm[Hg] - Sitting 72.00/ min 26413 010 21069 7 98.40 Tympanic 39126 010 73632 1 212.00 mg/dL 98558 010 44496 2 212.00 mg/dL 88338 010 22084 1 115.00 mg/dL 37760 010 86624 0 115.00 mg/dL 06555 010 10271 4 98.50 Tympanic 63084 010 45696 4 150.00 mg/dL 45208 010 35903 0 150.00 mg/dL 13461 011 09189 7 290.00 mg/dL 60792 011 15344 2 290.00 mg/dL 37556 011 83078 2 290.00 mg/dL 00392 011 32682 7 54.00 mm[Hg] - Sitting 136.00 mm[Hg] - Sitting 101.00 /min 67844 011 04970 7 98.60 Tympanic Immunizations Vaccine Date Status COVID-19 09/20/2023 Completed Other 10/08/2023 Completed Shingles 05/27/2011 Completed Tetanus 04/13/2022 Completed TDaP 04/13/2022 Completed Shingles 2 10/05/2018 Completed
--- OUTSIDE RECORDS SUMMARY | 2024-10-03 11:17 | External Medical Summary | Continuity Of Care Document ---
Author Name Unknown Address [address] [address] Organization [facility] () Care Team Providers Care [place] Cutter Name Role Phone DO Machado Amy Primary Care Provider [phone] Allergies Allergy Reaction Start Date End Date [...] 3 0.1 mL 08/29 Inactiv e 2023 78911 33563 0 1 time Intrad ermal False Tubersol 5 tub. unit/0.1 mL intradermal injection solution [Tuberculin PPD] 0.1mL Intradermal 1 time For PPD 2nd Step Give 2nd Step PPD Day 1 and Read results Day 3 (schedule 7 days after 1st READ) 0.1mL 09/08 Active 2023 18345 02662 0 1 time Intrad ermal False Humalog [...] order For Diabetes 08/25 Inactiv e 2023 47643 39829 9 4 times a day Subcut aneous False Aspirin 325 mg tablet [generic] 325 By Mouth Twice daily For Anticoagulati on 325 09/25 Active 2023 34707 10687 1 Twice daily By Mouth False Ferrous sulfate 325 mg (65 mg iron) tablet [generic] 325 By Mouth Once daily For anemia 325 2023 Active 2023 20447 02987 5 Once daily By Mouth False Linezolid 600 mg tablet [generic] 600 mg By Mouth Every 12 hours For MRSA INFECTION L BKA 600 mg 08/25 Inactiv e 2023 40462 63018 1 Every 12 hours By Mouth False Cefpodoxime 200 mg tablet [generic] 400 mg By Mouth Twice daily For MRSA INFECTION L BKA 400 mg 08/25 Inactiv e 2023 98294 34856 0 Twice daily By Mouth False Coenzyme Q10 100 mg tablet [generic] 100 mg By Mouth Once daily For SUPP 100 mg 2023 Active 2023 44597 37187 0 Once daily By Mouth False Levothyroxi ne 50 mcg tablet [generic] 50mcg By Mouth Once daily For hypothyroidis m 50mcg 2023 Active 2023 04846 07984 0 Once daily By Mouth False One A Day Men Complete 240 mcg-25 mcg-300 mcg tablet 1 tab By Mouth Once daily For supplement 1 tab 2023 Active 2023 76001 81482 1 Once daily By Mouth False Cholecalcif adalberto (vitamin D3) 50 mcg (2,000 unit) tablet [generic] 1 TAB By Mouth Once daily For SUPP 1 TAB 2023 Active 2023 57407 88950 1 Once daily By Mouth False Cetirizine 10 mg tablet [generic] 1 TAB By Mouth At bedtime For Allergies 1 TAB 2023 Active 2023 93153 24401 0 At bedtime By Mouth False Timolol maleate 0.25 % eye drops [generic] 1 drop Both Eyes Twice daily For glaucoma 1 drop 2023 Active 2023 27599 50248 5 Twice daily Both Eyes False Alendronate 35 mg tablet [generic] 35mg By Mouth Every week For SIADH 35mg 2023 Active 2023 81277 74795 5 Every week By Mouth False Lantus Solostar U-100 Insulin 100 unit/mL (3 mL) subcutaneou s pen 18 units Subcutaneous Every morning For DIABETES 18 units 08/25 Inactiv e 2023 32507 27634 0 Every morning Subcut aneous False Lantus Solostar U-100 Insulin 100 unit/mL (3 mL) subcutaneou s pen 18 units Subcutaneous Every morning For DIABETES 18 units 2023 Active 2023 91665 38686 0 Every morning Subcut aneous False Linezolid 600 mg tablet [generic] 600 mg By Mouth Every 12 hours For MRSA INFECTION L BKA 600 mg 08/28 Inactiv e 2023 28260 83475 1 Every 12 hours By Mouth False [...] one-time order For Diabetes 2023 Active 2023 06780 73663 9 4 times a day Subcut aneous False Cefpodoxime 200 mg tablet [generic] 400 mg By Mouth Twice daily For MRSA INFECTION L BKA 400 mg 08/28 Inactiv e 2023 68102 75899 0 Twice daily By Mouth False Brimonidine 0.1 % eye drops [generic] 1 drop Both Eyes Twice daily For glaucoma 1 drop 2023 Active 2023 42500 37982 0 Twice daily Both Eyes False Metoprolol succinate ER 50 mg tablet,exte nded release 24 hr [generic] 50 mg By Mouth Once daily HOLD FOR SBP <100, or pulse <60 For HTN 50 mg 2023 Active 2023 03949 39977 1 Once daily By Mouth False Amlodipine 2.5 mg tablet [generic] 2.5 mg By Mouth Once daily For HTN 2.5 mg 2023 Active 2023 54109 82900 5 Once daily By Mouth False Docusate sodium 100 mg capsule [generic] 100mg By Mouth Twice daily as needed For constipation HOLD FOR LOOSE STOOLS 100mg 2023 Active 2023 86774 25474 1 Twice daily as needed By Mouth False Atorvastati n 40 mg tablet [generic] 40mg By Mouth Once daily For HDL 40mg 08/26 Inactiv e 2023 12500 96549 5 Once daily By Mouth False Tylenol 325 mg tablet 2 tabs By Mouth Every 4 hours as needed For Pain DO NOT EXCEED 3000 MG APAP/24 Hours 2 tabs 2023 Active 2023 54544 23966 0 Every 4 hours as needed By Mouth False Tylenol 325 mg tablet 2 tabs By Mouth Every 4 hours as needed For Fever >100 DO NOT EXCEED 3000 MG APAP/24 Hours 2 tabs 2023 Active 2023 50574 78303 0 Every 4 hours as needed By Mouth False Dulcolax (bisacodyl) 10 mg rectal suppository One Suppository per rectum PRN if Milk of Magnisia ineffective. Give on day 5 of no BM 1 sup 2023 Active 2023 38721 57991 1 Daily as needed Rectal False Fleet Enema 19 gram-7 gram/118 mL Administer per rectum PRN one time if dulcolax suppository not effective. Give on day 6 of no BM 1 2023 Active 2023 58162 82502 6 Daily as needed Rectal False Dextrose 50 % in water (D50W) intravenous solution [generic] Dextrose 50% evonne 20-50 ml (slow push) Intravenous if Glucagon not effective after 15 minutes. CALL 911 for ED Evaluation. 50% evonne 2023 Active 2023 61462 97179 9 Intrav enous False Glucagon (HCl) Emergency Kit 1 mg solution for injection Administer Glucagon 1 mg Intramuscular if 15 minutes after GLucose Gel is administered Glucose remains less than 70 1 mg 2023 Active 2023 81969 14889 2 Intram uscula r False Glucose Gel 40 % oral gel [Dextrose] PRN If resident is unable to swallow (with or without symptoms) and Glucose results less than 70 give GLucose 40% Gel 1 tube orally - Recheck Glucose 15 minutes after administratio n. 1 tube 2023 Active 2023 22806 28085 8 By Mouth False Milk of Magnesia 400 mg/5 mL oral suspension [Magnesium hydroxide] PRN 30ml By Mouth Daily as needed for constipation one time daily if no BM, on day 4 of no BM (PRN refer to instructions) For Constipation 30 mL 2023 Active 2023 04525 26955 6 Daily as needed By Mouth False Atorvastati n 40 mg tablet [generic] 08/26 Inactiv e 2023 77378 28364 5 Atorvastati n 40 mg tablet [generic] 40mg By Mouth Once daily For HDL 40mg 2023 Active 2023 26191 02268 5 Once daily By Mouth False Insulin aspart (U-100) 100 unit/mL (3 mL) subcutaneou s pen [generic] 15 units Subcutaneous 1 time For dm 15 units 08/26 Inactiv e 2023 20274 33009 5 1 time Subcut aneous False Humalog KwikPen (U-100) Insulin 100 unit/mL subcutaneou s 15 units Subcutaneous 1 time For dm 15 units 08/27 Inactiv e 2023 95666 75373 9 1 time Subcut aneous False Linezolid 600 mg tablet [generic] 600 mg By Mouth Every 12 hours For MRSA INFECTION L BKA 600 mg 09/06 Active 2023 28970 78758 1 Every 12 hours By Mouth False Cefpodoxime 200 mg tablet [generic] 400 mg By Mouth Twice daily For MRSA INFECTION L BKA 400 mg 08/31 Inactiv e 2023 71365 03913 0 Twice daily By Mouth False Senna 8.6 mg tablet 8.6 mg By Mouth Once daily For Constipation 8.6 mg 2023 Active 2023 49495 90068 1 Once daily By Mouth False MediHoney HCS 4 1/2in X 4 1/2in bandage Cleanse area with NSS, apply one medihoney hydrocolloid dressing, non adherent dressing, kerlix secure with paper tape daily. For wound stage III 1 2023 Active 2023 71735 71741 1 Once daily Topica l False Problems Code Description Start Date End Date Status D64.9 Anemia, unspecified 08/25/2024 Activ e I25.10 Atherosclerotic hear t disease of [place] coronary artery without angina pectoris 08/25/2024 [...] weight Temperature SpO2 Blood Sugar Pulse Respirations 98049 8 67.00 mm[Hg] - Sitting 145.00 mm[Hg] - Sitting 98.50 Forehead Scan 96.00 % 81.00/ min 16.00/min 31251 004 40544 2 67.00 mm[Hg] - Sitting 145.00 mm[Hg] - Sitting 98.50 Tympanic 81.00/ min 16.00/min 81093 004 63693 5 56.00 mm[Hg] - Sitting 142.00 mm[Hg] - Sitting 136.40 NI 100.20 Tympanic 96.00 % 92.00/ min 18.00/min 60166 004 21448 6 40685 004 98315 4 143.00 mg/dL 29724 0 97.80 Tympanic 005 16942 7 60.00 mm[Hg] - Sitting 140.00 mm[Hg] - Sitting 98.00 Tympanic 84.00/ min 18.00/min 68312 005 19706 0 63.00 mm[Hg] - Sitting 141.00 mm[Hg] - Sitting 98.20 Tympanic 92.00 % 63.00/ min 16.00/min 64997 005 28554 8 69.00 mm[Hg] - Sitting 106.00 mm[Hg] - Sitting 97.20 Tympanic 36876 005 43945 7 69.00/ min 16.00/min 57483 005 82071 3 69.00 mm[Hg] - Sitting 106.00 mm[Hg] - Sitting 98.20 Tympanic 69.00/ min 16.00/min 56666 005 86149 1 367.00 mg/dL 15154 005 22770 2 97.20 Tympanic 76166 005 94933 4 97.20 Tympanic 66216 005 59329 0 69.00 mm[Hg] - Sitting 106.00 mm[Hg] - Sitting 69.00/ min 48257 005 94436 3 452.00 mg/dL 90554 005 32265 3 452.00 mg/dL 37086 005 21411 5 352.00 mg/dL 88730 005 88807 3 352.00 mg/dL 98051 005 36256 7 98.20 Tympanic 36162 005 14988 3 101.00 mg/dL 22523 005 75707 8 101.00 mg/dL 99606 006 65338 4 66.00 mm[Hg] - Sitting 107.00 mm[Hg] - Sitting 98.00 Tympanic 66.00/ min 18.00/min 09085 006 03224 0 62.00 mm[Hg] - Sitting 162.00 mm[Hg] - Sitting 98.20 Tympanic 96.00 % 60.00/ min 16.00/min 56126 006 11412 4 62.00 mm[Hg] - Sitting 162.00 mm[Hg] - Sitting 98.00 Tympanic 70.00/ min 18.00/min 39458 006 19787 8 62.00 mm[Hg] - Sitting 162.00 mm[Hg] - Sitting 98.20 Tympanic 70.00/ min 18.00/min 99984 006 18990 2 66.00 mm[Hg] - Sitting 132.00 mm[Hg] - Sitting 98.60 Tympanic 74.00/ min 16.00/min 52172 006 50009 5 159.00 mg/dL 54218 006 91041 1 159.00 mg/dL 51306 006 42922 8 98.00 Tympanic 95285 006 99604 2 62.00 mm[Hg] - Sitting 162.00 mm[Hg] - Sitting 70.00/ min 84405 006 42370 7 264.00 mg/dL 15313 006 22518 7 264.00 mg/dL 71810 006 30307 4 196.00 mg/dL 36202 006 58861 3 98.20 Tympanic 54301 006 61781 6 271.00 mg/dL 86467 007 48376 3 97.20 Tympanic 18965 007 98865 2 63.00 mm[Hg] - Sitting 132.00 mm[Hg] - Sitting 98.50 Tympanic 94.00 % 66.00/ min 16.00/min 18274 007 01754 5 188.00 mg/dL 78236 007 50953 2 188.00 mg/dL 12198 007 21283 2 188.00 mg/dL 40897 007 43041 7 97.20 Tympanic 40367 007 98428 6 97.20 Tympanic 13299 007 10000 5 67.00 mm[Hg] - Sitting 152.00 mm[Hg] - Sitting 68.00/ min 47015 007 21121 0 141.00 mg/dL 27745 007 47458 3 141.00 mg/dL 18558 007 04302 1 366.00 mg/dL 57162 007 56606 7 366.00 mg/dL 94541 007 69579 7 98.00 Tympanic 89018 007 86292 6 324.00 mg/dL 46855 007 32919 3 98.00 Tympanic 32388 007 73056 7 324.00 mg/dL 93237 008 54226 0 98.00 Tympanic 23135 008 31605 2 97.90 Tympanic 59491 008 89661 0 98.20 Tympanic 47798 008 75471 0 73.00 mm[Hg] - Sitting 156.00 mm[Hg] - Sitting 98.60 Tympanic 99.00 % 66.00/ min 20.00/min 12851 008 97592 5 137.00 mg/dL 45924 008 46548 7 137.00 mg/dL 93229 008 41065 2 97.90 Tympanic 12327 008 66430 1 137.00 mg/dL 34760 008 95073 8 97.90 Tympanic 66763 008 85475 5 67.00 mm[Hg] - Sitting 124.00 /min 22295 008 88633 6 212.00 mg/dL 69449 008 06745 6 212.00 mg/dL 76944 008 39971 9 317.00 mg/dL 83099 008 58337 4 317.00 mg/dL 12503 008 16303 8 252.00 mg/dL 68738 008 93744 0 98.70 Tympanic 00959 008 58625 7 252.00 mg/dL 99347 008 81099 3 98.70 Tympanic 93968 009 70900 9 98.70 Tympanic 41832 009 97574 3 98.20 Tympanic 34462 009 03297 5 98.40 Tympanic 50632 009 21338 5 57.00 mm[Hg] - Sitting 129.00 mm[Hg] - Sitting 98.30 Tympanic 97.00 % 65.00/ min 18.00/min 91804 009 70666 1 255.00 mg/dL 52865 009 90515 4 255.00 mg/dL 86283 009 62487 5 98.20 Tympanic 56322 009 38883 0 255.00 mg/dL 37774 009 11948 0 98.20 Tympanic 00607 009 28730 4 63.00 mm[Hg] - Lying Down 102.00 mm[Hg] - Lying Down 58.00/ min 20828 009 10179 0 167.00 mg/dL 63769 009 68398 1 167.00 mg/dL 81277 009 95649 2 164.00 mg/dL 42252 009 74727 1 164.00 mg/dL 13685 009 40837 5 208.00 mg/dL 18223 010 81405 2 214.00 mg/dL 28508 010 48642 0 214.00 mg/dL 28782 010 52580 7 214.00 mg/dL 79974 010 21189 6 64.00 mm[Hg] - Sitting 110.00 mm[Hg] - Sitting 72.00/ min 51011 010 80746 7 98.40 Tympanic
--- OUTSIDE RECORDS SUMMARY | 2024-10-03 11:17 | External Medical Summary | Summary of Care ---
Author Name Unknown Organization [facility] Address [address] [place] [address] Phone [phone] Care Team Providers Care Route Clerk Name Role Phone Louisa Quiroga DO Primary Care Provider [phone] Reason for Visit * Reason Onset Date Comments Advice 08/31/2024 Encounter Details Date Type Department Care Team (Late st Contact Info) Description 08/31/2024 Telephone Family Practice [facility] [address] [place] [address] Louisa Quiroga DO [address] [place] [address] Advice Allergies Active Allergy Reactions [...] hemoglobin A1c goal of less than 7.0% ([facility]) Sliding scale 8-12 units prior to meals 4 Each 5 06/15/2023 Active Insulin Syringe-Needle U-100 31G X 1/4" 0.3 MLIndications:Diabete s mellitus with background retinopathy ([facility]) Use as directed. For use of insulin up to 4 times daily 400 Each 3 07/24/2023 Active Metoprolol Succinate ER 50 MG Oral Tablet Extended Release 24 Hour (toPROL XL) TAKE 1 TABLET BY MOUTH IN THE MORNING 90 Tablet 1 02/08/2024 Active Vitamin D3 250 MCG (44161 UT) Oral Tablet (Cholecalciferol) Take 1 Tablet by mouth every evening. Active Timolol Maleate 0.25 % Ophthalmic Solution (Timoptic) Instill 1 Drop into both eyes in the morning and 1 Drop before bedtime. 07/07/2023 Active Pen Free Union 31G X 5 MMIndications:Type 1 diabetes mellitus with hemoglobin A1c goal of less than 7.0% ([facility]) Use as directed. 400 Each 3 03/14/2024 [...] Teague the Interim Infection control nurse at [facility] is requesting alll immunization records to be faxed to her attention at [phone]. Any questions please call [phone]. Thank you. documented in this encounter Plan of Treatment Health Maintenance Due Date Last Done Comments Hepatitis C Screening 1963 Adult Wellness Visit 2011 Diabetic Foot Exam 05/15/2012 05/15/2011, 06/02/2010 CKD PHOS USE SMARTSET 07775 06/15/2024 06/15/2023 COVID-19 Vaccine ( season) 2024 [...] Additional history exists CKD HGB USE SMARTSET 27118 08/16/202508/16, 08/05/2024, 07/29/2024, Additional history exists DTap/Tdap [...] filedocumented as of this encounter Care Teams Route Clerk Relationship Specialty Start Date End Date Louisa Quiroga DO [address] [facility] [address] [address] PCP - General Family Medicine 07/03/24 documented as of this encounter
--- OUTSIDE RECORDS SUMMARY | 2024-10-03 11:17 | External Medical Summary | Continuity Of Care Document ---
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 unit/0.1 mL intradermal injection solution [Tuberculin PPD] 0.1mL Intradermal 1 time For PPD 2nd Step Give 2nd Step PPD Day 1 and Read results Day 3 (schedule 7 days after 1st READ) 0.1mL 09/08 Active 2023 46523 66484 0 1 time Intrad ermal False Humalog [...] order For Diabetes 08/25 Inactiv e 2023 74619 32922 9 4 times a day Subcut aneous False Aspirin 325 mg tablet [generic] 325 By Mouth Twice daily For Anticoagulati on 325 09/25 Active 2023 62854 10520 1 Twice daily By Mouth False Ferrous sulfate 325 mg (65 mg iron) tablet [generic] 325 By Mouth Once daily For anemia 325 2023 Active 2023 25817 91340 5 Once daily By Mouth False Linezolid 600 mg tablet [generic] 600 mg By Mouth Every 12 hours For MRSA INFECTION L BKA 600 mg 08/25 Inactiv e 2023 00377 21534 1 Every 12 hours By Mouth False Cefpodoxime 200 mg tablet [generic] 400 mg By Mouth Twice daily For MRSA INFECTION L BKA 400 mg 08/25 Inactiv e 2023 81666 91882 0 Twice daily By Mouth False Coenzyme Q10 100 mg tablet [generic] 100 mg By Mouth Once daily For SUPP 100 mg 2023 Active 2023 15448 44057 0 Once daily By Mouth False Levothyroxi ne 50 mcg tablet [generic] 50mcg By Mouth Once daily For hypothyroidis m 50mcg 2023 Active 2023 90834 65653 0 Once daily By Mouth False One A Day Men Complete 240 mcg-25 mcg-300 mcg tablet 1 tab By Mouth Once daily For supplement 1 tab 2023 Active 2023 96377 19742 1 Once daily By Mouth False Cholecalcif adalberto (vitamin D3) 50 mcg (2,000 unit) tablet [generic] 1 TAB By Mouth Once daily For SUPP 1 TAB 2023 Active 2023 89918 25983 1 Once daily By Mouth False Cetirizine 10 mg tablet [generic] 1 TAB By Mouth At bedtime For Allergies 1 TAB 2023 Active 2023 99555 43727 0 At bedtime By Mouth False Timolol maleate 0.25 % eye drops [generic] 1 drop Both Eyes Twice daily For glaucoma 1 drop 2023 0000 /0000 Active 2023 52581 77815 5 Twice daily Both Eyes False Alendronate 35 mg tablet [generic] 35mg By Mouth Every week For SIADH 35mg 08/31 Inactiv e 2023 97321 99472 5 Every week By Mouth False Lantus Solostar U-100 Insulin 100 unit/mL (3 mL) subcutaneou s pen 18 units Subcutaneous Every morning For DIABETES 18 units 08/25 Inactiv e 2023 64400 62131 0 Every morning Subcut aneous False Lantus Solostar U-100 Insulin 100 unit/mL (3 mL) subcutaneou s pen 18 units Subcutaneous Every morning For DIABETES 18 units 2023 Active 2023 99415 52578 0 Every morning Subcut aneous False Linezolid 600 mg tablet [generic] 600 mg By Mouth Every 12 hours For MRSA INFECTION L BKA 600 mg 08/28 Inactiv e 2023 77841 62986 1 Every 12 hours By Mouth False [...] order For Diabetes 08/31 Inactiv e 2023 68203 56101 9 4 times a day Subcut aneous False Cefpodoxime 200 mg tablet [generic] 400 mg By Mouth Twice daily For MRSA INFECTION L BKA 400 mg 08/28 Inactiv e 2023 58469 77577 0 Twice daily By Mouth False Brimonidine 0.1 % eye drops [generic] 1 drop Both Eyes Twice daily For glaucoma 1 drop 2023 Active 2023 92211 54940 0 Twice daily Both Eyes False Metoprolol succinate ER 50 mg tablet,exte nded release 24 hr [generic] 50 mg By Mouth Once daily HOLD FOR SBP <100, or pulse <60 For HTN 50 mg 2023 Active 2023 21957 55156 1 Once daily By Mouth False Amlodipine 2.5 mg tablet [generic] 2.5 mg By Mouth Once daily For HTN 2.5 mg 2023 Active 2023 15380 84264 5 Once daily By Mouth False Docusate sodium 100 mg capsule [generic] 100mg By Mouth Twice daily as needed For constipation HOLD FOR LOOSE STOOLS 100mg 2023 Active 2023 71963 58338 1 Twice daily as needed By Mouth False Atorvastati n 40 mg tablet [generic] 40mg By Mouth Once daily For HDL 40mg 08/26 Inactiv e 2023 26516 01262 5 Once daily By Mouth False Tylenol 325 mg tablet 2 tabs By Mouth Every 4 hours as needed For Pain DO NOT EXCEED 3000 MG APAP/24 Hours 2 tabs 2023 Active 2023 23471 84581 0 Every 4 hours as needed By Mouth False Tylenol 325 mg tablet 2 tabs By Mouth Every 4 hours as needed For Fever >100 DO NOT EXCEED 3000 MG APAP/24 Hours 2 tabs 2023 Active 2023 59564 87647 0 Every 4 hours as needed By Mouth False Dulcolax (bisacodyl) 10 mg rectal suppository One Suppository per rectum PRN if Milk of Magnisia ineffective. Give on day 5 of no BM 1 sup 2023 Active 2023 76917 64977 1 Daily as needed Rectal False Fleet Enema 19 gram-7 gram/118 mL Administer per rectum PRN one time if dulcolax suppository not effective. Give on day 6 of no BM 1 2023 Active 2023 49934 01035 6 Daily as needed Rectal False Dextrose 50 % in water (D50W) intravenous solution [generic] Dextrose 50% evonne 20-50 ml (slow push) Intravenous if Glucagon not effective after 15 minutes. CALL 911 for ED Evaluation. 50% evonne 2023 Active 2023 60144 91451 9 Intrav enous False Glucagon (HCl) Emergency Kit 1 mg solution for injection Administer Glucagon 1 mg Intramuscular if 15 minutes after GLucose Gel is administered Glucose remains less than 70 1 mg 2023 Active 2023 31115 50837 2 Intram uscula r False Glucose Gel 40 % oral gel [Dextrose] PRN If resident is unable to swallow (with or without symptoms) and Glucose results less than 70 give GLucose 40% Gel 1 tube orally - Recheck Glucose 15 minutes after administratio n. 1 tube 2023 Active 2023 26388 86239 8 By Mouth False Milk of Magnesia 400 mg/5 mL oral suspension [Magnesium hydroxide] PRN 30ml By Mouth Daily as needed for constipation one time daily if no BM, on day 4 of no BM (PRN refer to instructions) For Constipation 30 mL 2023 Active 2023 37181 60271 6 Daily as needed By Mouth False Atorvastati n 40 mg tablet [generic] 08/26 Inactiv e 2023 52816 28179 5 Atorvastati n 40 mg tablet [generic] 40mg By Mouth Once daily For HDL 40mg 2023 Active 2023 63881 37303 5 Once daily By Mouth False Insulin aspart (U-100) 100 unit/mL (3 mL) subcutaneou s pen [generic] 15 units Subcutaneous 1 time For dm 15 units 08/26 Inactiv e 2023 97006 16786 5 1 time Subcut aneous False Humalog KwikPen (U-100) Insulin 100 unit/mL subcutaneou s 15 units Subcutaneous 1 time For dm 15 units 08/27 Inactiv e 2023 70933 19126 9 1 time Subcut aneous False Linezolid 600 mg tablet [generic] 600 mg By Mouth Every 12 hours For MRSA INFECTION L BKA 600 mg 09/06 Active 2023 25927 64480 1 Every 12 hours By Mouth False Cefpodoxime 200 mg tablet [generic] 400 mg By Mouth Twice daily For MRSA INFECTION L BKA 400 mg 08/31 Inactiv e 2023 82625 76238 0 Twice daily By Mouth False Senna 8.6 mg tablet 8.6 mg By Mouth Once daily For Constipation 8.6 mg 2023 Active 2023 65032 91161 1 Once daily By Mouth False Humalog [...] abnormalities . Per Carb 2023 Active 2023 20160 62187 9 4 times a day Subcut aneous False Alendronate 35 mg tablet [generic] 08/31 Inactiv e 2023 77054 02273 5 Alendronate 35 mg tablet [generic] 35mg By Mouth Every week For Osteoporosis 35mg 202300 Active 2023 84632 80924 5 Every week By Mouth False Humalog KwikPen (U-100) Insulin 100 unit/mL subcutaneou s 08/31 Inactiv e 2023 52051 39101 9 MediHoney HCS 4 1/2in X 4 1/2in bandage Cleanse area with NSS, apply one medihoney hydrocolloid dressing, non adherent dressing, kerlix secure with paper tape daily. For wound stage III 1 2023 Active 2023 65188 59729 1 Once daily Juanya l False Problems Code Description Start Date End Date Status D64.9 Anemia, unspecified 08/25/2024 Activ e I25.10 Atherosclerotic hear t disease of [place] coronary artery without angina pectoris 08/25/2024 Active [...] weight Temperature SpO2 Blood Sugar Pulse Respirations 04687 004 27772 8 67.00 mm[Hg] - Sitting 145.00 mm[Hg] - Sitting 98.50 Forehead Scan 96.00 % 81.00/ min 16.00/min 61317 004 86744 2 67.00 mm[Hg] - Sitting 145.00 mm[Hg] - Sitting 98.50 Tympanic 81.00/ min 16.00/min 44626 004 15743 5 56.00 mm[Hg] - Sitting 142.00 mm[Hg] - Sitting 136.40 NI 100.20 Tympanic 96.00 % 92.00/ min 18.00/min 54754 004 61521 6 86424 004 10413 4 143.00 mg/dL 79592 004 75990 0 97.80 Tympanic 20543 005 72927 7 60.00 mm[Hg] - Sitting 140.00 mm[Hg] - Sitting 98.00 Tympanic 84.00/ min 18.00/min 45093 005 74339 0 63.00 mm[Hg] - Sitting 141.00 mm[Hg] - Sitting 98.20 Tympanic 92.00 % 63.00/ min 16.00/min 73029 005 63669 8 69.00 mm[Hg] - Sitting 106.00 mm[Hg] - Sitting 97.20 Tympanic 58745 005 67188 7 69.00/ min 16.00/min 61759 005 16131 3 69.00 mm[Hg] - Sitting 106.00 mm[Hg] - Sitting 98.20 Tympanic 69.00/ min 16.00/min 62640 005 27945 1 367.00 mg/dL 82980 005 38426 2 97.20 Tympanic 03234 005 92435 4 97.20 Tympanic 80627 005 55137 0 69.00 mm[Hg] - Sitting 106.00 mm[Hg] - Sitting 69.00/ min 09799 005 68277 3 452.00 mg/dL 34864 005 75413 3 452.00 mg/dL 60564 005 37014 5 352.00 mg/dL 42459 005 71881 3 352.00 mg/dL 08284 005 05742 7 98.20 Tympanic 74144 005 41907 3 101.00 mg/dL 61426 005 42203 8 101.00 mg/dL 32723 006 56162 4 66.00 mm[Hg] - Sitting 107.00 mm[Hg] - Sitting 98.00 Tympanic 66.00/ min 18.00/min 00078 006 84210 0 62.00 mm[Hg] - Sitting 162.00 mm[Hg] - Sitting 98.20 Tympanic 96.00 % 60.00/ min 16.00/min 87557 006 49878 4 62.00 mm[Hg] - Sitting 162.00 mm[Hg] - Sitting 98.00 Tympanic 70.00/ min 18.00/min 85448 006 31740 8 62.00 mm[Hg] - Sitting 162.00 mm[Hg] - Sitting 98.20 Tympanic 70.00/ min 18.00/min 78774 006 08930 2 66.00 mm[Hg] - Sitting 132.00 mm[Hg] - Sitting 98.60 Tympanic 74.00/ min 16.00/min 95307 006 71920 5 159.00 mg/dL 18571 006 07730 1 159.00 mg/dL 44139 006 69927 8 98.00 Tympanic 18924 006 84443 2 62.00 mm[Hg] - Sitting 162.00 mm[Hg] - Sitting 70.00/ min 28462 006 87488 7 264.00 mg/dL 44697 006 43431 7 264.00 mg/dL 22980 006 27709 4 196.00 mg/dL 02515 006 45235 3 98.20 Tympanic 06534 006 26926 6 271.00 mg/dL 33364 007 99745 3 97.20 Tympanic 52713 007 25794 2 63.00 mm[Hg] - Sitting 132.00 mm[Hg] - Sitting 98.50 Tympanic 94.00 % 66.00/ min 16.00/min 06780 007 11465 5 188.00 mg/dL 14042 007 26341 2 188.00 mg/dL 55922 007 65260 2 188.00 mg/dL 22528 007 30443 7 97.20 Tympanic 21053 007 84400 6 97.20 Tympanic 41817 007 17586 5 67.00 mm[Hg] - Sitting 152.00 mm[Hg] - Sitting 68.00/ min 72735 007 91032 0 141.00 mg/dL 43332 007 00803 3 141.00 mg/dL 46419 007 59548 1 366.00 mg/dL 41035 007 73761 7 366.00 mg/dL 12227 007 12375 7 98.00 Tympanic 64340 007 04031 6 324.00 mg/dL 56894 007 52567 3 98.00 Tympanic 41639 007 18700 7 324.00 mg/dL 75508 008 79928 0 98.00 Tympanic 42042 008 38582 2 97.90 Tympanic 25002 008 25726 0 98.20 Tympanic 43219 008 35888 0 73.00 mm[Hg] - Sitting 156.00 mm[Hg] - Sitting 98.60 Tympanic 99.00 % 66.00/ min 20.00/min 24008 008 19126 5 137.00 mg/dL 77430 008 91934 7 137.00 mg/dL 66569 008 43875 2 97.90 Tympanic 15401 008 65305 1 137.00 mg/dL 57207 008 54536 8 97.90 Tympanic 06099 008 73522 5 67.00 mm[Hg] - Sitting 124.00 /min 65465 008 23785 6 212.00 mg/dL 31348 008 56302 6 212.00 mg/dL 24675 008 70676 9 317.00 mg/dL 98119 008 86968 4 317.00 mg/dL 87303 008 64377 8 252.00 mg/dL 94905 008 31062 0 98.70 Tympanic 83170 008 97892 7 252.00 mg/dL 82900 008 87258 3 98.70 Tympanic 12908 009 89988 9 98.70 Tympanic 46781 009 26661 3 98.20 Tympanic 04278 009 31714 5 98.40 Tympanic 05151 009 45179 5 57.00 mm[Hg] - Sitting 129.00 mm[Hg] - Sitting 98.30 Tympanic 97.00 % 65.00/ min 18.00/min 15523 009 91739 1 255.00 mg/dL 85261 009 31156 4 255.00 mg/dL 31213 009 64640 5 98.20 Tympanic 99490 009 91414 0 255.00 mg/dL 95052 009 98519 0 98.20 Tympanic 73574 009 74038 4 63.00 mm[Hg] - Lying Down 102.00 mm[Hg] - Lying Down 58.00/ min 10742 009 36922 0 167.00 mg/dL 32078 009 38647 1 167.00 mg/dL 03691 009 62383 2 164.00 mg/dL 92686 009 42876 1 164.00 mg/dL 94598 009 36971 5 208.00 mg/dL 85075 010 03283 3 98.40 Tympanic 49633 010 28640 5 98.40 Tympanic 18656 010 58577 7 66 [place] [address] 010 86315 4 60.00 mm[Hg] - Sitting 143.00 mm[Hg] - Sitting 98.90 Tympanic 98.00 % 67.00/ min 18.00/min 81117 010 42060 2 214.00 mg/dL 44946 010 24033 0 214.00 mg/dL 56559 010 21076 7 214.00 mg/dL 56039 010 06430 6 64.00 mm[Hg] - Sitting 110.00 mm[Hg] - Sitting 72.00/ min 80831 010 60454 7 98.40 Tympanic 81050 010 31098 1 212.00 mg/dL 39294 010 65142 2 212.00 mg/dL 64106 010 85692 1 115.00 mg/dL 42529 010 80042 0 115.00 mg/dL 47503 010 37838 4 98.50 Tympanic 29059 010 80400 4 150.00 mg/dL 21466 010 18948 0 150.00 mg/dL Immunizations Vaccine Date Status COVID-19 09/20/2023 Completed Other 10/08/2023 Completed Shingles 05/27/2011 Completed Tetanus 04/13/2022 Completed TDaP 04/13/2022 Completed Shingles 2 10/05/2018 Completed
--- OUTSIDE RECORDS SUMMARY | 2024-10-03 11:18 | External Medical Summary | Continuity Of Care Document ---
Author Name Unknown Address [address] 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 unit/0.1 mL intradermal injection solution [Tuberculin PPD] 0.1mL Intradermal 1 time For PPD 2nd Step Give 2nd Step PPD Day 1 and Read results Day 3 (schedule 7 days after 1st READ) 0.1mL 09/08 Active 2023 97647 32850 0 1 time Intrad ermal False Humalog [...] order For Diabetes 08/25 Inactiv e 2023 27573 17139 9 4 times a day Subcut aneous False Aspirin 325 mg tablet [generic] 325 By Mouth Twice daily For Anticoagulati on 325 09/25 Active 2023 14670 84195 1 Twice daily By Mouth False Ferrous sulfate 325 mg (65 mg iron) tablet [generic] 325 By Mouth Once daily For anemia 325 2023 Active 2023 96870 88230 5 Once daily By Mouth False Linezolid 600 mg tablet [generic] 600 mg By Mouth Every 12 hours For MRSA INFECTION L BKA 600 mg 08/25 Inactiv e 2023 96067 23503 1 Every 12 hours By Mouth False Cefpodoxime 200 mg tablet [generic] 400 mg By Mouth Twice daily For MRSA INFECTION L BKA 400 mg 08/25 Inactiv e 2023 15608 26381 0 Twice daily By Mouth False Coenzyme Q10 100 mg tablet [generic] 100 mg By Mouth Once daily For SUPP 100 mg 2023 Active 2023 67938 37823 0 Once daily By Mouth False Levothyroxi ne 50 mcg tablet [generic] 50mcg By Mouth Once daily For hypothyroidis m 50mcg 2023 Active 2023 85519 24384 0 Once daily By Mouth False One A Day Men Complete 240 mcg-25 mcg-300 mcg tablet 1 tab By Mouth Once daily For supplement 1 tab 2023 Active 2023 68218 95715 1 Once daily By Mouth False Cholecalcif adalberto (vitamin D3) 50 mcg (2,000 unit) tablet [generic] 1 TAB By Mouth Once daily For SUPP 1 TAB 2023 Active 2023 52025 34666 1 Once daily By Mouth False Cetirizine 10 mg tablet [generic] 1 TAB By Mouth At bedtime For Allergies 1 TAB 2023 Active 2023 06256 67789 0 At bedtime By Mouth False Timolol maleate 0.25 % eye drops [generic] 1 drop Both Eyes Twice daily For glaucoma 1 drop 2023 Active 2023 48371 17657 5 Twice daily Both Eyes False Alendronate 35 mg tablet [generic] 35mg By Mouth Every week For SIADH 35mg 2023 Active 2023 43901 31504 5 Every week By Mouth False Lantus Solostar U-100 Insulin 100 unit/mL (3 mL) subcutaneou s pen 18 units Subcutaneous Every morning For DIABETES 18 units 08/25 Inactiv e 2023 18317 77299 0 Every morning Subcut aneous False Lantus Solostar U-100 Insulin 100 unit/mL (3 mL) subcutaneou s pen 18 units Subcutaneous Every morning For DIABETES 18 units 2023 Active 2023 76207 57481 0 Every morning Subcut aneous False Linezolid 600 mg tablet [generic] 600 mg By Mouth Every 12 hours For MRSA INFECTION L BKA 600 mg 08/28 Inactiv e 2023 65127 65052 1 Every 12 hours By Mouth False [...] order For Diabetes 08/31 Inactiv e 2023 29229 64393 9 4 times a day Subcut aneous False Cefpodoxime 200 mg tablet [generic] 400 mg By Mouth Twice daily For MRSA INFECTION L BKA 400 mg 08/28 Inactiv e 2023 97247 60756 0 Twice daily By Mouth False Brimonidine 0.1 % eye drops [generic] 1 drop Both Eyes Twice daily For glaucoma 1 drop 2023 Active 2023 58866 57183 0 Twice daily Both Eyes False Metoprolol succinate ER 50 mg tablet,exte nded release 24 hr [generic] 50 mg By Mouth Once daily HOLD FOR SBP <100, or pulse <60 For HTN 50 mg 2023 Active 2023 21171 04324 1 Once daily By Mouth False Amlodipine 2.5 mg tablet [generic] 2.5 mg By Mouth Once daily For HTN 2.5 mg 2023 Active 2023 32755 82475 5 Once daily By Mouth False Docusate sodium 100 mg capsule [generic] 100mg By Mouth Twice daily as needed For constipation HOLD FOR LOOSE STOOLS 100mg 2023 Active 2023 21801 08148 1 Twice daily as needed By Mouth False Atorvastati n 40 mg tablet [generic] 40mg By Mouth Once daily For HDL 40mg 08/26 Inactiv e 2023 12208 36481 5 Once daily By Mouth False Tylenol 325 mg tablet 2 tabs By Mouth Every 4 hours as needed For Pain DO NOT EXCEED 3000 MG APAP/24 Hours 2 tabs 2023 Active 2023 71037 55472 0 Every 4 hours as needed By Mouth False Tylenol 325 mg tablet 2 tabs By Mouth Every 4 hours as needed For Fever >100 DO NOT EXCEED 3000 MG APAP/24 Hours 2 tabs 2023 Active 2023 09636 03045 0 Every 4 hours as needed By Mouth False Dulcolax (bisacodyl) 10 mg rectal suppository One Suppository per rectum PRN if Milk of Magnisia ineffective. Give on day 5 of no BM 1 sup 2023 Active 2023 53429 03066 1 Daily as needed Rectal False Fleet Enema 19 gram-7 gram/118 mL Administer per rectum PRN one time if dulcolax suppository not effective. Give on day 6 of no BM 1 2023 Active 2023 42547 15369 6 Daily as needed Rectal False Dextrose 50 % in water (D50W) intravenous solution [generic] Dextrose 50% evonne 20-50 ml (slow push) Intravenous if Glucagon not effective after 15 minutes. CALL 911 for ED Evaluation. 50% evonne 2023 Active 2023 14054 51832 9 Intrav enous False Glucagon (HCl) Emergency Kit 1 mg solution for injection Administer Glucagon 1 mg Intramuscular if 15 minutes after GLucose Gel is administered Glucose remains less than 70 1 mg 2023 Active 2023 22512 29219 2 Intram uscula r False Glucose Gel 40 % oral gel [Dextrose] PRN If resident is unable to swallow (with or without symptoms) and Glucose results less than 70 give GLucose 40% Gel 1 tube orally - Recheck Glucose 15 minutes after administratio n. 1 tube 2023 Active 2023 95932 21039 8 By Mouth False Milk of Magnesia 400 mg/5 mL oral suspension [Magnesium hydroxide] PRN 30ml By Mouth Daily as needed for constipation one time daily if no BM, on day 4 of no BM (PRN refer to instructions) For Constipation 30 mL 2023 Active 2023 77582 42887 6 Daily as needed By Mouth False Atorvastati n 40 mg tablet [generic] 08/26 Inactiv e 2023 75134 87894 5 Atorvastati n 40 mg tablet [generic] 40mg By Mouth Once daily For HDL 40mg 2023 Active 2023 34230 51709 5 Once daily By Mouth False Insulin aspart (U-100) 100 unit/mL (3 mL) subcutaneou s pen [generic] 15 units Subcutaneous 1 time For dm 15 units 08/26 Inactiv e 2023 59781 69816 5 1 time Subcut aneous False Humalog KwikPen (U-100) Insulin 100 unit/mL subcutaneou s 15 units Subcutaneous 1 time For dm 15 units 08/27 Inactiv e 2023 70876 97317 9 1 time Subcut aneous False Linezolid 600 mg tablet [generic] 600 mg By Mouth Every 12 hours For MRSA INFECTION L BKA 600 mg 09/06 Active 2023 50115 02141 1 Every 12 hours By Mouth False Cefpodoxime 200 mg tablet [generic] 400 mg By Mouth Twice daily For MRSA INFECTION L BKA 400 mg 08/31 Inactiv e 2023 37402 24672 0 Twice daily By Mouth False Senna 8.6 mg tablet 8.6 mg By Mouth Once daily For Constipation 8.6 mg 2023 Active 2023 52722 84992 1 Once daily By Mouth False Humalog [...] abnormalities . Per Carb 2023 Active 2023 51425 94446 9 4 times a day Subcut aneous False Humalog KwikPen (U-100) Insulin 100 unit/mL subcutaneou s 08/31 Inactiv e 2023 98473 37611 9 MediHoney HCS 4 1/2in X 4 1/2in bandage Cleanse area with NSS, apply one mediney hydrocolloid dressing, non adherent dressing, kerlix secure with paper tape daily. For wound stage III 1 2023 Active 2023 93142 97337 1 Once daily Topica l False Problems Code Description Start Date End Date Status D64.9 Anemia, unspecified 08/25/2024 Activ e I25.10 Atherosclerotic hear t disease of [place] coronary artery without angina pectoris 08/25/2024 Active [...] weight Temperature SpO2 Blood Sugar Pulse Respirations 08705 8 67.00 mm[Hg] - Sitting 145.00 mm[Hg] - Sitting 98.50 Forehead Scan 96.00 % 81.00/ min 16.00/min 87397 2 67.00 mm[Hg] - Sitting 145.00 mm[Hg] - Sitting 98.50 Tympanic 81.00/ min 16.00/min 48943 004 29808 5 56.00 mm[Hg] - Sitting 142.00 mm[Hg] - Sitting 136.40 NI 100.20 Tympanic 96.00 % 92.00/ min 18.00/min 97103 004 37197 6 34061 004 19889 4 143.00 mg/dL 94956 004 36333 0 97.80 Tympanic 11495 005 16168 7 60.00 mm[Hg] - Sitting 140.00 mm[Hg] - Sitting 98.00 Tympanic 84.00/ min 18.00/min 16967 005 52240 0 63.00 mm[Hg] - Sitting 141.00 mm[Hg] - Sitting 98.20 Tympanic 92.00 % 63.00/ min 16.00/min 54323 005 33172 8 69.00 mm[Hg] - Sitting 106.00 mm[Hg] - Sitting 97.20 Tympanic 39874 005 20954 7 69.00/ min 16.00/min 52799 005 96920 3 69.00 mm[Hg] - Sitting 106.00 mm[Hg] - Sitting 98.20 Tympanic 69.00/ min 16.00/min 86672 005 21485 1 367.00 mg/dL 90522 005 95171 2 97.20 Tympanic 73288 005 61231 4 97.20 Tympanic 40577 005 06120 0 69.00 mm[Hg] - Sitting 106.00 mm[Hg] - Sitting 69.00/ min 60735 005 66072 3 452.00 mg/dL 56253 005 71221 3 452.00 mg/dL 73152 005 09169 5 352.00 mg/dL 67339 005 34044 3 352.00 mg/dL 06650 005 42308 7 98.20 Tympanic 36942 005 40197 3 101.00 mg/dL 59873 005 89547 8 101.00 mg/dL 68708 006 39917 4 66.00 mm[Hg] - Sitting 107.00 mm[Hg] - Sitting 98.00 Tympanic 66.00/ min 18.00/min 12152 006 60774 0 62.00 mm[Hg] - Sitting 162.00 mm[Hg] - Sitting 98.20 Tympanic 96.00 % 60.00/ min 16.00/min 31685 006 14136 4 62.00 mm[Hg] - Sitting 162.00 mm[Hg] - Sitting 98.00 Tympanic 70.00/ min 18.00/min 28750 006 72078 8 62.00 mm[Hg] - Sitting 162.00 mm[Hg] - Sitting 98.20 Tympanic 70.00/ min 18.00/min 52666 006 58091 2 66.00 mm[Hg] - Sitting 132.00 mm[Hg] - Sitting 98.60 Tympanic 74.00/ min 16.00/min 33707 006 27860 5 159.00 mg/dL 62520 006 82957 1 159.00 mg/dL 35181 006 84360 8 98.00 Tympanic 01661 006 37264 2 62.00 mm[Hg] - Sitting 162.00 mm[Hg] - Sitting 70.00/ min 22515 006 38356 7 264.00 mg/dL 74590 006 45210 7 264.00 mg/dL 53620 006 30757 4 196.00 mg/dL 65732 006 44059 3 98.20 Tympanic 19985 006 81631 6 271.00 mg/dL 99662 007 42736 3 97.20 Tympanic 41439 007 45965 2 63.00 mm[Hg] - Sitting 132.00 mm[Hg] - Sitting 98.50 Tympanic 94.00 % 66.00/ min 16.00/min 08116 007 25775 5 188.00 mg/dL 55930 007 05032 2 188.00 mg/dL 89516 007 16598 2 188.00 mg/dL 15529 007 92647 7 97.20 Tympanic 38433 007 04475 6 97.20 Tympanic 06609 007 31697 5 67.00 mm[Hg] - Sitting 152.00 mm[Hg] - Sitting 68.00/ min 81103 007 46125 0 141.00 mg/dL 39231 007 41075 3 141.00 mg/dL 30210 007 58799 1 366.00 mg/dL 82110 007 19248 7 366.00 mg/dL 99604 007 17077 7 98.00 Tympanic 96861 007 14795 6 324.00 mg/dL 96182 007 68787 3 98.00 Tympanic 41549 007 00678 7 324.00 mg/dL 11559 008 26522 0 98.00 Tympanic 63359 008 96734 2 97.90 Tympanic 74241 008 34650 0 98.20 Tympanic 76172 008 78294 0 73.00 mm[Hg] - Sitting 156.00 mm[Hg] - Sitting 98.60 Tympanic 99.00 % 66.00/ min 20.00/min 98268 008 47604 5 137.00 mg/dL 71164 008 20163 7 137.00 mg/dL 77122 008 58740 2 97.90 Tympanic 34720 008 21129 1 137.00 mg/dL 32975 008 87495 8 97.90 Tympanic 33984 008 27998 5 67.00 mm[Hg] - Sitting 124.00 /min 01878 008 40368 6 212.00 mg/dL 36902 008 09089 6 212.00 mg/dL 20841 008 56342 9 317.00 mg/dL 66960 008 06320 4 317.00 mg/dL 98958 008 23686 8 252.00 mg/dL 99033 008 63097 0 98.70 Tympanic 75193 008 76474 7 252.00 mg/dL 72484 008 76439 3 98.70 Tympanic 02786 009 03901 9 98.70 Tympanic 18049 009 68902 3 98.20 Tympanic 65962 009 88754 5 98.40 Tympanic 83106 009 62899 5 57.00 mm[Hg] - Sitting 129.00 mm[Hg] - Sitting 98.30 Tympanic 97.00 % 65.00/ min 18.00/min 21382 009 13944 1 255.00 mg/dL 91782 009 65116 4 255.00 mg/dL Immunizations Vaccine Date Status COVID-19 09/20/2023 Completed Other 10/08/2023 Completed Shingles 05/27/2011 Completed Tetanus 04/13/2022 Completed TDaP 04/13/2022 Completed Shingles 2 10/05/2018 Completed
--- OUTSIDE RECORDS SUMMARY | 2024-10-03 11:18 | External Medical Summary | Continuity Of Care Document ---
Author Name Unknown Address [address] [address] Organization [facility] () Care Team Providers Care Engineering Technician Name Role Phone DO Machado Amy Primary Care Provider [phone] Allergies Allergy Reaction Start Date End Date [...] 3 0.1 mL 08/29 Inactiv e 2023 22246 62968 0 1 time Intrad ermal False Tubersol 5 tub. unit/0.1 mL intradermal injection solution [Tuberculin PPD] 0.1mL Intradermal 1 time For PPD 2nd Step Give 2nd Step PPD Day 1 and Read results Day 3 (schedule 7 days after 1st READ) 0.1mL 09/08 Active 2023 48162 39285 0 1 time Intrad ermal False Humalog [...] order For Diabetes 08/25 Inactiv e 2023 21752 72936 9 4 times a day Subcut aneous False Aspirin 325 mg tablet [generic] 325 By Mouth Twice daily For Anticoagulati on 325 09/25 Active 2023 77742 43383 1 Twice daily By Mouth False Ferrous sulfate 325 mg (65 mg iron) tablet [generic] 325 By Mouth Once daily For anemia 325 2023 Active 2023 28914 23440 5 Once daily By Mouth False Linezolid 600 mg tablet [generic] 600 mg By Mouth Every 12 hours For MRSA INFECTION L BKA 600 mg 08/25 Inactiv e 2023 77476 62765 1 Every 12 hours By Mouth False Cefpodoxime 200 mg tablet [generic] 400 mg By Mouth Twice daily For MRSA INFECTION L BKA 400 mg 08/25 Inactiv e 2023 30102 46877 0 Twice daily By Mouth False Coenzyme Q10 100 mg tablet [generic] 100 mg By Mouth Once daily For SUPP 100 mg 2023 Active 2023 77395 53789 0 Once daily By Mouth False Levothyroxi ne 50 mcg tablet [generic] 50mcg By Mouth Once daily For hypothyroidis m 50mcg 2023 Active 2023 75521 10233 0 Once daily By Mouth False One A Day Men Complete 240 mcg-25 mcg-300 mcg tablet 1 tab By Mouth Once daily For supplement 1 tab 2023 Active 2023 73985 30800 1 Once daily By Mouth False Cholecalcif adalberto (vitamin D3) 50 mcg (2,000 unit) tablet [generic] 1 TAB By Mouth Once daily For SUPP 1 TAB 2023 Active 2023 35184 42438 1 Once daily By Mouth False Cetirizine 10 mg tablet [generic] 1 TAB By Mouth At bedtime For Allergies 1 TAB 2023 Active 2023 62605 45266 0 At bedtime By Mouth False Timolol maleate 0.25 % eye drops [generic] 1 drop Both Eyes Twice daily For glaucoma 1 drop 2023 Active 2023 88324 47087 5 Twice daily Both Eyes False Alendronate 35 mg tablet [generic] 35mg By Mouth Every week For SIADH 35mg 2023 Active 2023 72025 70742 5 Every week By Mouth False Lantus Solostar U-100 Insulin 100 unit/mL (3 mL) subcutaneou s pen 18 units Subcutaneous Every morning For DIABETES 18 units 08/25 Inactiv e 2023 69743 11735 0 Every morning Subcut aneous False Lantus Solostar U-100 Insulin 100 unit/mL (3 mL) subcutaneou s pen 18 units Subcutaneous Every morning For DIABETES 18 units 2023 Active 2023 93451 24992 0 Every morning Subcut aneous False Linezolid 600 mg tablet [generic] 600 mg By Mouth Every 12 hours For MRSA INFECTION L BKA 600 mg 08/28 Inactiv e 2023 09752 90286 1 Every 12 hours By Mouth False [...] one-time order For Diabetes 2023 Active 2023 04314 11182 9 4 times a day Subcut aneous False Cefpodoxime 200 mg tablet [generic] 400 mg By Mouth Twice daily For MRSA INFECTION L BKA 400 mg 08/28 Inactiv e 2023 57697 19654 0 Twice daily By Mouth False Brimonidine 0.1 % eye drops [generic] 1 drop Both Eyes Twice daily For glaucoma 1 drop 2023 Active 2023 73422 79365 0 Twice daily Both Eyes False Metoprolol succinate ER 50 mg tablet,exte nded release 24 hr [generic] 50 mg By Mouth Once daily HOLD FOR SBP <100, or pulse <60 For HTN 50 mg 2023 Active 2023 58408 49139 1 Once daily By Mouth False Amlodipine 2.5 mg tablet [generic] 2.5 mg By Mouth Once daily For HTN 2.5 mg 2023 Active 2023 48466 60818 5 Once daily By Mouth False Docusate sodium 100 mg capsule [generic] 100mg By Mouth Twice daily as needed For constipation HOLD FOR LOOSE STOOLS 100mg 2023 Active 2023 95854 46803 1 Twice daily as needed By Mouth False Atorvastati n 40 mg tablet [generic] 40mg By Mouth Once daily For HDL 40mg 08/26 Inactiv e 2023 47767 49509 5 Once daily By Mouth False Tylenol 325 mg tablet 2 tabs By Mouth Every 4 hours as needed For Pain DO NOT EXCEED 3000 MG APAP/24 Hours 2 tabs 2023 Active 2023 12542 21209 0 Every 4 hours as needed By Mouth False Tylenol 325 mg tablet 2 tabs By Mouth Every 4 hours as needed For Fever >100 DO NOT EXCEED 3000 MG APAP/24 Hours 2 tabs 2023 Active 2023 02671 11558 0 Every 4 hours as needed By Mouth False Dulcolax (bisacodyl) 10 mg rectal suppository One Suppository per rectum PRN if Milk of Magnisia ineffective. Give on day 5 of no BM 1 sup 2023 Active 2023 65858 96380 1 Daily as needed Rectal False Fleet Enema 19 gram-7 gram/118 mL Administer per rectum PRN one time if dulcolax suppository not effective. Give on day 6 of no BM 1 2023 Active 2023 62534 83616 6 Daily as needed Rectal False Dextrose 50 % in water (D50W) intravenous solution [generic] Dextrose 50% evonne 20-50 ml (slow push) Intravenous if Glucagon not effective after 15 minutes. CALL 911 for ED Evaluation. 50% evonne 2023 Active 2023 68883 76787 9 Intrav enous False Glucagon (HCl) Emergency Kit 1 mg solution for injection Administer Glucagon 1 mg Intramuscular if 15 minutes after GLucose Gel is administered Glucose remains less than 70 1 mg 2023 Active 2023 36934 16407 2 Intram uscula r False Glucose Gel 40 % oral gel [Dextrose] PRN If resident is unable to swallow (with or without symptoms) and Glucose results less than 70 give GLucose 40% Gel 1 tube orally - Recheck Glucose 15 minutes after administratio n. 1 tube 2023 Active 2023 63043 15227 8 By Mouth False Milk of Magnesia 400 mg/5 mL oral suspension [Magnesium hydroxide] PRN 30ml By Mouth Daily as needed for constipation one time daily if no BM, on day 4 of no BM (PRN refer to instructions) For Constipation 30 mL 2023 Active 2023 77431 43181 6 Daily as needed By Mouth False Atorvastati n 40 mg tablet [generic] 08/26 Inactiv e 2023 94972 26041 5 Atorvastati n 40 mg tablet [generic] 40mg By Mouth Once daily For HDL 40mg 2023 Active 2023 32135 43028 5 Once daily By Mouth False Insulin aspart (U-100) 100 unit/mL (3 mL) subcutaneou s pen [generic] 15 units Subcutaneous 1 time For dm 15 units 08/26 Inactiv e 2023 93947 52580 5 1 time Subcut aneous False Humalog KwikPen (U-100) Insulin 100 unit/mL subcutaneou s 15 units Subcutaneous 1 time For dm 15 units 08/27 Inactiv e 2023 83057 13790 9 1 time Subcut aneous False Linezolid 600 mg tablet [generic] 600 mg By Mouth Every 12 hours For MRSA INFECTION L BKA 600 mg 09/06 Active 2023 59885 99033 1 Every 12 hours By Mouth False Cefpodoxime 200 mg tablet [generic] 400 mg By Mouth Twice daily For MRSA INFECTION L BKA 400 mg 08/31 Active 2023 44873 56615 0 Twice daily By Mouth False Senna 8.6 mg tablet 8.6 mg By Mouth Once daily For Constipation 8.6 mg 2023 Active 2023 74105 48628 1 Once daily By Mouth False MediHoney HCS 4 1/2in X 4 1/2in bandage Cleanse area with NSS, apply one medihoney hydrocolloid dressing, non adherent dressing, kerlix secure with paper tape daily. For wound stage III 1 2023 Active 2023 04275 96043 1 Once daily Topica l False Problems Code Description Start Date End Date Status D64.9 Anemia, unspecified 08/25/2024 Activ e I25.10 Atherosclerotic hear t disease of [place] coronary artery without angina pectoris 08/25/2024 Active [...] weight Temperature SpO2 Blood Sugar Pulse Respirations 05929 8 67.00 mm[Hg] - Sitting 145.00 mm[Hg] - Sitting 98.50 Forehead Scan 96.00 % 81.00/ min 16.00/min 01097 004 67115 2 67.00 mm[Hg] - Sitting 145.00 mm[Hg] - Sitting 98.50 Tympanic 81.00/ min 16.00/min 48465 004 78635 5 56.00 mm[Hg] - Sitting 142.00 mm[Hg] - Sitting 136.40 NI 100.20 Tympanic 96.00 % 92.00/ min 18.00/min 07959 004 60780 6 50389 004 44141 4 143.00 mg/dL 91763 0 97.80 Tympanic 005 05709 7 60.00 mm[Hg] - Sitting 140.00 mm[Hg] - Sitting 98.00 Tympanic 84.00/ min 18.00/min 56023 005 25654 0 63.00 mm[Hg] - Sitting 141.00 mm[Hg] - Sitting 98.20 Tympanic 92.00 % 63.00/ min 16.00/min 05920 005 24150 8 69.00 mm[Hg] - Sitting 106.00 mm[Hg] - Sitting 97.20 Tympanic 27897 005 97849 7 69.00/ min 16.00/min 39956 005 44049 3 69.00 mm[Hg] - Sitting 106.00 mm[Hg] - Sitting 98.20 Tympanic 69.00/ min 16.00/min 69172 005 75379 1 367.00 mg/dL 91512 005 92508 2 97.20 Tympanic 12701 005 90671 4 97.20 Tympanic 91899 005 24634 0 69.00 mm[Hg] - Sitting 106.00 mm[Hg] - Sitting 69.00/ min 79617 005 76860 3 452.00 mg/dL 89113 005 13938 3 452.00 mg/dL 99564 005 48295 5 352.00 mg/dL 13555 005 50140 3 352.00 mg/dL 42769 005 38522 7 98.20 Tympanic 10734 005 32264 3 101.00 mg/dL 05561 005 29170 8 101.00 mg/dL 67358 006 75890 4 66.00 mm[Hg] - Sitting 107.00 mm[Hg] - Sitting 98.00 Tympanic 66.00/ min 18.00/min 70408 006 69853 0 62.00 mm[Hg] - Sitting 162.00 mm[Hg] - Sitting 98.20 Tympanic 96.00 % 60.00/ min 16.00/min 44145 006 80754 4 62.00 mm[Hg] - Sitting 162.00 mm[Hg] - Sitting 98.00 Tympanic 70.00/ min 18.00/min 94976 006 67048 8 62.00 mm[Hg] - Sitting 162.00 mm[Hg] - Sitting 98.20 Tympanic 70.00/ min 18.00/min 75364 006 05587 2 66.00 mm[Hg] - Sitting 132.00 mm[Hg] - Sitting 98.60 Tympanic 74.00/ min 16.00/min 25289 006 22476 5 159.00 mg/dL 30837 006 80175 1 159.00 mg/dL 70948 006 63889 8 98.00 Tympanic 22212 006 96460 2 62.00 mm[Hg] - Sitting 162.00 mm[Hg] - Sitting 70.00/ min 44945 006 21840 7 264.00 mg/dL 56250 006 99016 7 264.00 mg/dL 96836 006 10205 4 196.00 mg/dL 33837 006 99030 3 98.20 Tympanic 87928 006 88904 6 271.00 mg/dL 19366 007 30875 3 97.20 Tympanic 22806 007 88168 2 63.00 mm[Hg] - Sitting 132.00 mm[Hg] - Sitting 98.50 Tympanic 94.00 % 66.00/ min 16.00/min 28867 007 59378 5 188.00 mg/dL 56645 007 86012 2 188.00 mg/dL 56455 007 54048 2 188.00 mg/dL 37780 007 93747 7 97.20 Tympanic 83158 007 10223 6 97.20 Tympanic 20081 007 01055 5 67.00 mm[Hg] - Sitting 152.00 mm[Hg] - Sitting 68.00/ min 29961 007 78104 0 141.00 mg/dL 26226 007 04333 3 141.00 mg/dL 22637 007 60960 1 366.00 mg/dL 21802 007 28142 7 366.00 mg/dL 03721 007 67559 7 98.00 Tympanic 21500 007 01184 6 324.00 mg/dL 09665 007 22013 3 98.00 Tympanic 60436 007 63396 7 324.00 mg/dL 45502 008 10331 0 98.00 Tympanic 66481 008 70276 2 97.90 Tympanic 20635 008 10243 0 98.20 Tympanic 02493 008 76652 0 73.00 mm[Hg] - Sitting 156.00 mm[Hg] - Sitting 98.60 Tympanic 99.00 % 66.00/ min 20.00/min 78148 008 35902 5 137.00 mg/dL 21724 008 91404 7 137.00 mg/dL 03132 008 74426 2 97.90 Tympanic 53362 008 69509 1 137.00 mg/dL 57883 008 60347 8 97.90 Tympanic 68071 008 09705 5 67.00 mm[Hg] - Sitting 124.00 /min 03305 008 18152 6 212.00 mg/dL 07986 008 22989 6 212.00 mg/dL 77101 008 62011 9 317.00 mg/dL 25097 008 12522 4 317.00 mg/dL 20011 008 15664 8 252.00 mg/dL 18428 008 37391 0 98.70 Tympanic 80079 008 97941 7 252.00 mg/dL 64363 008 31517 3 98.70 Tympanic 42294 009 48871 9 98.70 Tympanic 90631 009 96216 3 98.20 Tympanic 47007 009 08609 5 98.40 Tympanic 55207 009 01335 1 255.00 mg/dL 54699 009 97897 4 255.00 mg/dL 10281 009 34977 5 98.20 Tympanic 92766 009 54035 0 255.00 mg/dL 86627 009 30867 0 98.20 Tympanic 56183 009 56991 4 58.00/ min
--- OUTSIDE RECORDS SUMMARY | 2024-10-03 11:18 | External Medical Summary | Continuity Of Care Document ---
Author Name Unknown Address [address] [address] Organization [facility] () Care Team Providers Care Rn Advanced Name Role Phone DO Machado Amy Primary Care Provider [phone] Allergies Allergy Reaction Start Date End Date [...] 3 0.1 mL 08/29 Inactiv e 2023 91762 53126 0 1 time Intrad ermal False Tubersol 5 tub. unit/0.1 mL intradermal injection solution [Tuberculin PPD] 0.1mL Intradermal 1 time For PPD 2nd Step Give 2nd Step PPD Day 1 and Read results Day 3 (schedule 7 days after 1st READ) 0.1mL 09/08 Active 2023 33027 90642 0 1 time Intrad ermal False Humalog [...] order For Diabetes 08/25 Inactiv e 2023 19245 03526 9 4 times a day Subcut aneous False Aspirin 325 mg tablet [generic] 325 By Mouth Twice daily For Anticoagulati on 325 09/25 Active 2023 98786 85595 1 Twice daily By Mouth False Ferrous sulfate 325 mg (65 mg iron) tablet [generic] 325 By Mouth Once daily For anemia 325 2023 Active 2023 35895 34206 5 Once daily By Mouth False Linezolid 600 mg tablet [generic] 600 mg By Mouth Every 12 hours For MRSA INFECTION L BKA 600 mg 08/25 Inactiv e 2023 04645 94006 1 Every 12 hours By Mouth False Cefpodoxime 200 mg tablet [generic] 400 mg By Mouth Twice daily For MRSA INFECTION L BKA 400 mg 08/25 Inactiv e 2023 83652 55043 0 Twice daily By Mouth False Coenzyme Q10 100 mg tablet [generic] 100 mg By Mouth Once daily For SUPP 100 mg 2023 Active 2023 99188 30470 0 Once daily By Mouth False Levothyroxi ne 50 mcg tablet [generic] 50mcg By Mouth Once daily For hypothyroidis m 50mcg 2023 Active 2023 72842 07716 0 Once daily By Mouth False One A Day Men Complete 240 mcg-25 mcg-300 mcg tablet 1 tab By Mouth Once daily For supplement 1 tab 2023 Active 2023 97635 25566 1 Once daily By Mouth False Cholecalcif adalberto (vitamin D3) 50 mcg (2,000 unit) tablet [generic] 1 TAB By Mouth Once daily For SUPP 1 TAB 2023 Active 2023 95199 70725 1 Once daily By Mouth False Cetirizine 10 mg tablet [generic] 1 TAB By Mouth At bedtime For Allergies 1 TAB 2023 Active 2023 56533 42423 0 At bedtime By Mouth False Timolol maleate 0.25 % eye drops [generic] 1 drop Both Eyes Twice daily For glaucoma 1 drop 2023 Active 2023 58276 40415 5 Twice daily Both Eyes False Alendronate 35 mg tablet [generic] 35mg By Mouth Every week For SIADH 35mg 2023 Active 2023 97318 09342 5 Every week By Mouth False Lantus Solostar U-100 Insulin 100 unit/mL (3 mL) subcutaneou s pen 18 units Subcutaneous Every morning For DIABETES 18 units 08/25 Inactiv e 2023 89636 58955 0 Every morning Subcut aneous False Lantus Solostar U-100 Insulin 100 unit/mL (3 mL) subcutaneou s pen 18 units Subcutaneous Every morning For DIABETES 18 units 2023 Active 2023 55536 08643 0 Every morning Subcut aneous False Linezolid 600 mg tablet [generic] 600 mg By Mouth Every 12 hours For MRSA INFECTION L BKA 600 mg 08/28 Inactiv e 2023 52541 65603 1 Every 12 hours By Mouth False [...] order For Diabetes 08/31 Inactiv e 2023 75579 70405 9 4 times a day Subcut aneous False Cefpodoxime 200 mg tablet [generic] 400 mg By Mouth Twice daily For MRSA INFECTION L BKA 400 mg 08/28 Inactiv e 2023 50039 30710 0 Twice daily By Mouth False Brimonidine 0.1 % eye drops [generic] 1 drop Both Eyes Twice daily For glaucoma 1 drop 2023 Active 2023 59361 58895 0 Twice daily Both Eyes False Metoprolol succinate ER 50 mg tablet,exte nded release 24 hr [generic] 50 mg By Mouth Once daily HOLD FOR SBP <100, or pulse <60 For HTN 50 mg 2023 Active 2023 41238 11488 1 Once daily By Mouth False Amlodipine 2.5 mg tablet [generic] 2.5 mg By Mouth Once daily For HTN 2.5 mg 2023 Active 2023 34095 19258 5 Once daily By Mouth False Docusate sodium 100 mg capsule [generic] 100mg By Mouth Twice daily as needed For constipation HOLD FOR LOOSE STOOLS 100mg 2023 Active 2023 49306 71862 1 Twice daily as needed By Mouth False Atorvastati n 40 mg tablet [generic] 40mg By Mouth Once daily For HDL 40mg 08/26 Inactiv e 2023 53572 85179 5 Once daily By Mouth False Tylenol 325 mg tablet 2 tabs By Mouth Every 4 hours as needed For Pain DO NOT EXCEED 3000 MG APAP/24 Hours 2 tabs 2023 Active 2023 20005 92577 0 Every 4 hours as needed By Mouth False Tylenol 325 mg tablet 2 tabs By Mouth Every 4 hours as needed For Fever >100 DO NOT EXCEED 3000 MG APAP/24 Hours 2 tabs 2023 Active 2023 79977 64850 0 Every 4 hours as needed By Mouth False Dulcolax (bisacodyl) 10 mg rectal suppository One Suppository per rectum PRN if Milk of Magnisia ineffective. Give on day 5 of no BM 1 sup 2023 Active 2023 65786 41636 1 Daily as needed Rectal False Fleet Enema 19 gram-7 gram/118 mL Administer per rectum PRN one time if dulcolax suppository not effective. Give on day 6 of no BM 1 2023 Active 2023 59218 57027 6 Daily as needed Rectal False Dextrose 50 % in water (D50W) intravenous solution [generic] Dextrose 50% evonne 20-50 ml (slow push) Intravenous if Glucagon not effective after 15 minutes. CALL 911 for ED Evaluation. 50% evonen 2023 Active 2023 80340 19307 9 Intrav enous False Glucagon (HCl) Emergency Kit 1 mg solution for injection Administer Glucagon 1 mg Intramuscular if 15 minutes after GLucose Gel is administered Glucose remains less than 70 1 mg 2023 Active 2023 36037 43234 2 Intram uscula r False Glucose Gel 40 % oral gel [Dextrose] PRN If resident is unable to swallow (with or without symptoms) and Glucose results less than 70 give GLucose 40% Gel 1 tube orally - Recheck Glucose 15 minutes after administratio n. 1 tube 2023 Active 2023 46280 13161 8 By Mouth False Milk of Magnesia 400 mg/5 mL oral suspension [Magnesium hydroxide] PRN 30ml By Mouth Daily as needed for constipation one time daily if no BM, on day 4 of no BM (PRN refer to instructions) For Constipation 30 mL 2023 Active 2023 36721 56924 6 Daily as needed By Mouth False Atorvastati n 40 mg tablet [generic] 08/26 Inactiv e 2023 21610 18118 5 Atorvastati n 40 mg tablet [generic] 40mg By Mouth Once daily For HDL 40mg 2023 Active 2023 35463 89609 5 Once daily By Mouth False Insulin aspart (U-100) 100 unit/mL (3 mL) subcutaneou s pen [generic] 15 units Subcutaneous 1 time For dm 15 units 08/26 Inactiv e 2023 10815 86670 5 1 time Subcut aneous False Humalog KwikPen (U-100) Insulin 100 unit/mL subcutaneou s 15 units Subcutaneous 1 time For dm 15 units 08/27 Inactiv e 2023 36662 76799 9 1 time Subcut aneous False Linezolid 600 mg tablet [generic] 600 mg By Mouth Every 12 hours For MRSA INFECTION L BKA 600 mg 09/06 Active 2023 65416 16232 1 Every 12 hours By Mouth False Cefpodoxime 200 mg tablet [generic] 400 mg By Mouth Twice daily For MRSA INFECTION L BKA 400 mg 08/31 Inactiv e 2023 03315 94067 0 Twice daily By Mouth False Senna 8.6 mg tablet 8.6 mg By Mouth Once daily For Constipation 8.6 mg 2023 Active 2023 91648 76551 1 Once daily By Mouth False Humalog [...] Physician will be notified of abnormalities . 2023 Active 2023 10103 34971 9 4 times a day Subcut aneous False Humalog KwikPen (U-100) Insulin 100 unit/mL subcutaneou s 08/31 Inactiv e 2023 36794 90080 9 MediHoney HCS 4 1/2in X 4 1/2in bandage Cleanse area with NSS, apply one medihoney hydrocolloid dressing, non adherent dressing, kerlix secure with paper tape daily. For wound stage III 1 2023 Active 2023 61852 01647 1 Once daily Topica l False Problems [...] weight Temperature SpO2 Blood Sugar Pulse Respirations 97491 8 67.00 mm[Hg] - Sitting 145.00 mm[Hg] - Sitting 98.50 Forehead Scan 96.00 % 81.00/ min 16.00/min 78214 2 67.00 mm[Hg] - Sitting 145.00 mm[Hg] - Sitting 98.50 Tympanic 81.00/ min 16.00/min 06419 004 12971 5 56.00 mm[Hg] - Sitting 142.00 mm[Hg] - Sitting 136.40 NI 100.20 Tympanic 96.00 % 92.00/ min 18.00/min 49425 004 33209 6 57991 004 44294 4 143.00 mg/dL 49220 004 02379 0 97.80 Tympanic 13086 005 29723 7 60.00 mm[Hg] - Sitting 140.00 mm[Hg] - Sitting 98.00 Tympanic 84.00/ min 18.00/min 97226 005 10936 0 63.00 mm[Hg] - Sitting 141.00 mm[Hg] - Sitting 98.20 Tympanic 92.00 % 63.00/ min 16.00/min 63821 005 68846 8 69.00 mm[Hg] - Sitting 106.00 mm[Hg] - Sitting 97.20 Tympanic 51173 005 54172 7 69.00/ min 16.00/min 58859 005 90768 3 69.00 mm[Hg] - Sitting 106.00 mm[Hg] - Sitting 98.20 Tympanic 69.00/ min 16.00/min 74375 005 56136 1 367.00 mg/dL 37522 005 16292 2 97.20 Tympanic 69912 005 23524 4 97.20 Tympanic 46702 005 56623 0 69.00 mm[Hg] - Sitting 106.00 mm[Hg] - Sitting 69.00/ min 93281 005 57312 3 452.00 mg/dL 99927 005 26415 3 452.00 mg/dL 52719 005 52960 5 352.00 mg/dL 93636 005 24063 3 352.00 mg/dL 70438 005 99369 7 98.20 Tympanic 78595 005 77446 3 101.00 mg/dL 14203 005 8 101.00 mg/dL 78214 006 82616 4 66.00 mm[Hg] - Sitting 107.00 mm[Hg] - Sitting 98.00 Tympanic 66.00/ min 18.00/min 22657 006 12837 0 62.00 mm[Hg] - Sitting 162.00 mm[Hg] - Sitting 98.20 Tympanic 96.00 % 60.00/ min 16.00/min 93362 006 94343 4 62.00 mm[Hg] - Sitting 162.00 mm[Hg] - Sitting 98.00 Tympanic 70.00/ min 18.00/min 40798 006 79782 8 62.00 mm[Hg] - Sitting 162.00 mm[Hg] - Sitting 98.20 Tympanic 70.00/ min 18.00/min 68027 006 79628 2 66.00 mm[Hg] - Sitting 132.00 mm[Hg] - Sitting 98.60 Tympanic 74.00/ min 16.00/min 12801 006 92008 5 159.00 mg/dL 81938 006 56342 1 159.00 mg/dL 82420 006 84045 8 98.00 Tympanic 65252 006 21214 2 62.00 mm[Hg] - Sitting 162.00 mm[Hg] - Sitting 70.00/ min 21699 006 25792 7 264.00 mg/dL 38358 006 96162 7 264.00 mg/dL 50198 006 56326 4 196.00 mg/dL 99028 006 30341 3 98.20 Tympanic 36974 006 44649 6 271.00 mg/dL 72116 007 19745 3 97.20 Tympanic 25720 007 93519 2 63.00 mm[Hg] - Sitting 132.00 mm[Hg] - Sitting 98.50 Tympanic 94.00 % 66.00/ min 16.00/min 32931 007 02697 5 188.00 mg/dL 38462 007 41455 2 188.00 mg/dL 72221 007 84457 2 188.00 mg/dL 72338 007 75831 7 97.20 Tympanic 73856 007 83034 6 97.20 Tympanic 74015 007 66957 5 67.00 mm[Hg] - Sitting 152.00 mm[Hg] - Sitting 68.00/ min 74231 007 51028 0 141.00 mg/dL 42846 007 76420 3 141.00 mg/dL 43058 007 47248 1 366.00 mg/dL 63180 007 56045 7 366.00 mg/dL 16969 007 77750 7 98.00 Tympanic 61284 007 55728 6 324.00 mg/dL 12585 007 03711 3 98.00 Tympanic 41834 007 90349 7 324.00 mg/dL 03230 008 54731 0 98.00 Tympanic 75413 008 12429 2 97.90 Tympanic 57288 008 69965 0 98.20 Tympanic 65606 008 73050 0 73.00 mm[Hg] - Sitting 156.00 mm[Hg] - Sitting 98.60 Tympanic 99.00 % 66.00/ min 20.00/min 68412 008 64864 5 137.00 mg/dL 67571 008 01083 7 137.00 mg/dL 83972 008 00206 2 97.90 Tympanic 60206 008 65472 1 137.00 mg/dL 14640 008 70795 8 97.90 Tympanic 24344 008 67607 5 67.00 mm[Hg] - Sitting 124.00 /min 56379 008 53461 6 212.00 mg/dL 48611 008 64391 6 212.00 mg/dL 91584 008 08831 9 317.00 mg/dL 71964 008 82704 4 317.00 mg/dL 97868 008 02593 8 252.00 mg/dL 61298 008 10644 0 98.70 Tympanic 99452 008 53661 7 252.00 mg/dL 46563 008 07935 3 98.70 Tympanic 19321 009 38820 9 98.70 Tympanic 08669 009 81678 3 98.20 Tympanic 74096 009 15126 5 98.40 Tympanic 52628 009 72760 5 57.00 mm[Hg] - Sitting 129.00 mm[Hg] - Sitting 98.30 Tympanic 97.00 % 65.00/ min 18.00/min 26794 009 30784 1 255.00 mg/dL 85913 009 33837 4 255.00 mg/dL 54240 009 51290 5 98.20 Tympanic 58146 009 24229 0 255.00 mg/dL 71796 009 94393 0 98.20 Tympanic 92011 009 40075 4 63.00 mm[Hg] - Lying Down 102.00 mm[Hg] - Lying Down 58.00/ min 35510 009 07044 0 167.00 mg/dL 67281 009 26324 1 167.00 mg/dL 99134 009 45847 2 164.00 mg/dL 01479 009 11719 1 164.00 mg/dL 35616 009 49659 5 208.00 mg/dL 37738 010 50141 2 214.00 mg/dL 81305 010 32343 0 214.00 mg/dL 48113 010 51602 7 214.00 mg/dL 38425 010 99902 6 64.00 mm[Hg] - Sitting 110.00 mm[Hg] - Sitting 72.00/ min 331 7 98.40 Tympanic 36006 1 212.00 mg/dL
--- OUTSIDE RECORDS SUMMARY | 2024-10-03 11:18 | External Medical Summary | Continuity Of Care Document ---
Author Name Unknown Address [address] [address] Organization [facility] () Care Team Providers Care Inspector Agricultural Commodities Name Role Phone DO Machado Amy Primary Care Provider [phone] Allergies Allergy Reaction Start Date End Date [...] 3 0.1 mL 08/29 Inactiv e 2023 37177 76721 0 1 time Intrad ermal False Tubersol 5 tub. unit/0.1 mL intradermal injection solution [Tuberculin PPD] 0.1mL Intradermal 1 time For PPD 2nd Step Give 2nd Step PPD Day 1 and Read results Day 3 (schedule 7 days after 1st READ) 0.1mL 09/08 Active 2023 64082 45566 0 1 time Intrad ermal False Humalog [...] order For Diabetes 08/25 Inactiv e 2023 19074 86956 9 4 times a day Subcut aneous False Aspirin 325 mg tablet [generic] 325 By Mouth Twice daily For Anticoagulati on 325 09/25 Active 2023 36301 17193 1 Twice daily By Mouth False Ferrous sulfate 325 mg (65 mg iron) tablet [generic] 325 By Mouth Once daily For anemia 325 2023 Active 2023 41112 38671 5 Once daily By Mouth False Linezolid 600 mg tablet [generic] 600 mg By Mouth Every 12 hours For MRSA INFECTION L BKA 600 mg 08/25 Inactiv e 2023 81022 82753 1 Every 12 hours By Mouth False Cefpodoxime 200 mg tablet [generic] 400 mg By Mouth Twice daily For MRSA INFECTION L BKA 400 mg 08/25 Inactiv e 2023 28636 60443 0 Twice daily By Mouth False Coenzyme Q10 100 mg tablet [generic] 100 mg By Mouth Once daily For SUPP 100 mg 2023 Active 2023 71263 36772 0 Once daily By Mouth False Levothyroxi ne 50 mcg tablet [generic] 50mcg By Mouth Once daily For hypothyroidis m 50mcg 2023 Active 2023 48710 41527 0 Once daily By Mouth False One A Day Men Complete 240 mcg-25 mcg-300 mcg tablet 1 tab By Mouth Once daily For supplement 1 tab 2023 Active 2023 14404 88623 1 Once daily By Mouth False Cholecalcif adalberto (vitamin D3) 50 mcg (2,000 unit) tablet [generic] 1 TAB By Mouth Once daily For SUPP 1 TAB 2023 Active 2023 68515 07807 1 Once daily By Mouth False Cetirizine 10 mg tablet [generic] 1 TAB By Mouth At bedtime For Allergies 1 TAB 2023 Active 2023 32086 35383 0 At bedtime By Mouth False Timolol maleate 0.25 % eye drops [generic] 1 drop Both Eyes Twice daily For glaucoma 1 drop 2023 Active 2023 76284 76681 5 Twice daily Both Eyes False Alendronate 35 mg tablet [generic] 35mg By Mouth Every week For SIADH 35mg 2023 Active 2023 12179 83505 5 Every week By Mouth False Lantus Solostar U-100 Insulin 100 unit/mL (3 mL) subcutaneou s pen 18 units Subcutaneous Every morning For DIABETES 18 units 08/25 Inactiv e 2023 30609 03541 0 Every morning Subcut aneous False Lantus Solostar U-100 Insulin 100 unit/mL (3 mL) subcutaneou s pen 18 units Subcutaneous Every morning For DIABETES 18 units 2023 Active 2023 74539 95867 0 Every morning Subcut aneous False Linezolid 600 mg tablet [generic] 600 mg By Mouth Every 12 hours For MRSA INFECTION L BKA 600 mg 08/28 Inactiv e 2023 66704 80633 1 Every 12 hours By Mouth False [...] one-time order For Diabetes 2023 Active 2023 51774 94419 9 4 times a day Subcut aneous False Cefpodoxime 200 mg tablet [generic] 400 mg By Mouth Twice daily For MRSA INFECTION L BKA 400 mg 08/28 Inactiv e 2023 63298 81889 0 Twice daily By Mouth False Brimonidine 0.1 % eye drops [generic] 1 drop Both Eyes Twice daily For glaucoma 1 drop 2023 Active 2023 49549 06388 0 Twice daily Both Eyes False Metoprolol succinate ER 50 mg tablet,exte nded release 24 hr [generic] 50 mg By Mouth Once daily HOLD FOR SBP <100, or pulse <60 For HTN 50 mg 2023 Active 2023 46238 76874 1 Once daily By Mouth False Amlodipine 2.5 mg tablet [generic] 2.5 mg By Mouth Once daily For HTN 2.5 mg 2023 Active 2023 37337 10598 5 Once daily By Mouth False Docusate sodium 100 mg capsule [generic] 100mg By Mouth Twice daily as needed For constipation HOLD FOR LOOSE STOOLS 100mg 2023 Active 2023 70598 67183 1 Twice daily as needed By Mouth False Atorvastati n 40 mg tablet [generic] 40mg By Mouth Once daily For HDL 40mg 08/26 Inactiv e 2023 32964 44055 5 Once daily By Mouth False Tylenol 325 mg tablet 2 tabs By Mouth Every 4 hours as needed For Pain DO NOT EXCEED 3000 MG APAP/24 Hours 2 tabs 2023 Active 2023 60284 19943 0 Every 4 hours as needed By Mouth False Tylenol 325 mg tablet 2 tabs By Mouth Every 4 hours as needed For Fever >100 DO NOT EXCEED 3000 MG APAP/24 Hours 2 tabs 2023 Active 2023 47789 24785 0 Every 4 hours as needed By Mouth False Dulcolax (bisacodyl) 10 mg rectal suppository One Suppository per rectum PRN if Milk of Magnisia ineffective. Give on day 5 of no BM 1 sup 2023 Active 2023 26046 30276 1 Daily as needed Rectal False Fleet Enema 19 gram-7 gram/118 mL Administer per rectum PRN one time if dulcolax suppository not effective. Give on day 6 of no BM 1 2023 Active 2023 21815 06519 6 Daily as needed Rectal False Dextrose 50 % in water (D50W) intravenous solution [generic] Dextrose 50% evonne 20-50 ml (slow push) Intravenous if Glucagon not effective after 15 minutes. CALL 911 for ED Evaluation. 50% evonne 2023 Active 2023 15039 09396 9 Intrav enous False Glucagon (HCl) Emergency Kit 1 mg solution for injection Administer Glucagon 1 mg Intramuscular if 15 minutes after GLucose Gel is administered Glucose remains less than 70 1 mg 2023 Active 2023 60613 24082 2 Intram uscula r False Glucose Gel 40 % oral gel [Dextrose] PRN If resident is unable to swallow (with or without symptoms) and Glucose results less than 70 give GLucose 40% Gel 1 tube orally - Recheck Glucose 15 minutes after administratio n. 1 tube 2023 Active 2023 23627 28699 8 By Mouth False Milk of Magnesia 400 mg/5 mL oral suspension [Magnesium hydroxide] PRN 30ml By Mouth Daily as needed for constipation one time daily if no BM, on day 4 of no BM (PRN refer to instructions) For Constipation 30 mL 2023 Active 2023 62892 44613 6 Daily as needed By Mouth False Atorvastati n 40 mg tablet [generic] 08/26 Inactiv e 2023 53127 19008 5 Atorvastati n 40 mg tablet [generic] 40mg By Mouth Once daily For HDL 40mg 2023 Active 2023 66433 48438 5 Once daily By Mouth False Insulin aspart (U-100) 100 unit/mL (3 mL) subcutaneou s pen [generic] 15 units Subcutaneous 1 time For dm 15 units 08/26 Inactiv e 2023 56944 49682 5 1 time Subcut aneous False Humalog KwikPen (U-100) Insulin 100 unit/mL subcutaneou s 15 units Subcutaneous 1 time For dm 15 units 08/27 Inactiv e 2023 64031 49657 9 1 time Subcut aneous False Linezolid 600 mg tablet [generic] 600 mg By Mouth Every 12 hours For MRSA INFECTION L BKA 600 mg 09/06 Active 2023 88626 63375 1 Every 12 hours By Mouth False Cefpodoxime 200 mg tablet [generic] 400 mg By Mouth Twice daily For MRSA INFECTION L BKA 400 mg 08/31 Inactiv e 2023 49804 40572 0 Twice daily By Mouth False Senna 8.6 mg tablet 8.6 mg By Mouth Once daily For Constipation 8.6 mg 2023 Active 2023 99928 40576 1 Once daily By Mouth False MediHoney HCS 4 1/2in X 4 1/2in bandage Cleanse area with NSS, apply one medihoney hydrocolloid dressing, non adherent dressing, kerlix secure with paper tape daily. For wound stage III 1 2023 Active 2023 20214 93103 1 Once daily Topica l False Problems Code Description Start Date End Date Status D64.9 Anemia, unspecified 08/25/2024 Activ e I25.10 Atherosclerotic hear t disease of [place] coronary artery without angina pectoris 08/25/2024 [...] weight Temperature SpO2 Blood Sugar Pulse Respirations 39419 8 67.00 mm[Hg] - Sitting 145.00 mm[Hg] - Sitting 98.50 Forehead Scan 96.00 % 81.00/ min 16.00/min 79357 004 31637 2 67.00 mm[Hg] - Sitting 145.00 mm[Hg] - Sitting 98.50 Tympanic 81.00/ min 16.00/min 39250 004 54329 5 56.00 mm[Hg] - Sitting 142.00 mm[Hg] - Sitting 136.40 NI 100.20 Tympanic 96.00 % 92.00/ min 18.00/min 21681 004 13600 6 47070 004 16943 4 143.00 mg/dL 14432 0 97.80 Tympanic 005 50501 7 60.00 mm[Hg] - Sitting 140.00 mm[Hg] - Sitting 98.00 Tympanic 84.00/ min 18.00/min 45661 005 78411 0 63.00 mm[Hg] - Sitting 141.00 mm[Hg] - Sitting 98.20 Tympanic 92.00 % 63.00/ min 16.00/min 36650 005 80369 8 69.00 mm[Hg] - Sitting 106.00 mm[Hg] - Sitting 97.20 Tympanic 19285 005 83414 7 69.00/ min 16.00/min 15677 005 76337 3 69.00 mm[Hg] - Sitting 106.00 mm[Hg] - Sitting 98.20 Tympanic 69.00/ min 16.00/min 18538 005 93679 1 367.00 mg/dL 63470 005 19568 2 97.20 Tympanic 76902 005 34525 4 97.20 Tympanic 69636 005 01038 0 69.00 mm[Hg] - Sitting 106.00 mm[Hg] - Sitting 69.00/ min 16543 005 31331 3 452.00 mg/dL 16262 005 64641 3 452.00 mg/dL 01141 005 24066 5 352.00 mg/dL 12977 005 90793 3 352.00 mg/dL 80738 005 38939 7 98.20 Tympanic 52593 005 01337 3 101.00 mg/dL 40238 005 53103 8 101.00 mg/dL 25812 006 68071 4 66.00 mm[Hg] - Sitting 107.00 mm[Hg] - Sitting 98.00 Tympanic 66.00/ min 18.00/min 46702 006 35182 0 62.00 mm[Hg] - Sitting 162.00 mm[Hg] - Sitting 98.20 Tympanic 96.00 % 60.00/ min 16.00/min 04892 006 89818 4 62.00 mm[Hg] - Sitting 162.00 mm[Hg] - Sitting 98.00 Tympanic 70.00/ min 18.00/min 94752 006 41258 8 62.00 mm[Hg] - Sitting 162.00 mm[Hg] - Sitting 98.20 Tympanic 70.00/ min 18.00/min 46970 006 14950 2 66.00 mm[Hg] - Sitting 132.00 mm[Hg] - Sitting 98.60 Tympanic 74.00/ min 16.00/min 67643 006 54974 5 159.00 mg/dL 52053 006 57332 1 159.00 mg/dL 88764 006 02546 8 98.00 Tympanic 12983 006 65272 2 62.00 mm[Hg] - Sitting 162.00 mm[Hg] - Sitting 70.00/ min 30085 006 52574 7 264.00 mg/dL 11910 006 54281 7 264.00 mg/dL 41272 006 63212 4 196.00 mg/dL 71606 006 62748 3 98.20 Tympanic 41066 006 72839 6 271.00 mg/dL 38944 007 87997 3 97.20 Tympanic 61013 007 73168 2 63.00 mm[Hg] - Sitting 132.00 mm[Hg] - Sitting 98.50 Tympanic 94.00 % 66.00/ min 16.00/min 06751 007 63682 5 188.00 mg/dL 53636 007 79537 2 188.00 mg/dL 33744 007 87094 2 188.00 mg/dL 26454 007 33435 7 97.20 Tympanic 21317 007 46864 6 97.20 Tympanic 02032 007 78657 5 67.00 mm[Hg] - Sitting 152.00 mm[Hg] - Sitting 68.00/ min 15132 007 36982 0 141.00 mg/dL 53274 007 15577 3 141.00 mg/dL 40022 007 21339 1 366.00 mg/dL 50778 007 08632 7 366.00 mg/dL 59461 007 89349 7 98.00 Tympanic 40740 007 25532 6 324.00 mg/dL 54988 007 13836 3 98.00 Tympanic 35574 007 57513 7 324.00 mg/dL 69504 008 50499 0 98.00 Tympanic 41261 008 18165 2 97.90 Tympanic 60579 008 89590 0 98.20 Tympanic 37652 008 02556 0 73.00 mm[Hg] - Sitting 156.00 mm[Hg] - Sitting 98.60 Tympanic 99.00 % 66.00/ min 20.00/min 83197 008 58889 5 137.00 mg/dL 16024 008 52082 7 137.00 mg/dL 14342 008 45621 2 97.90 Tympanic 22514 008 06500 1 137.00 mg/dL 45424 008 79478 8 97.90 Tympanic 48291 008 27313 5 67.00 mm[Hg] - Sitting 124.00 /min 77297 008 81476 6 212.00 mg/dL 37447 008 00012 6 212.00 mg/dL 25467 008 41903 9 317.00 mg/dL 60595 008 58216 4 317.00 mg/dL 92847 008 52738 8 252.00 mg/dL 52524 008 87900 0 98.70 Tympanic 70359 008 49667 7 252.00 mg/dL 10636 008 41609 3 98.70 Tympanic 38390 009 59541 9 98.70 Tympanic 90227 009 39966 3 98.20 Tympanic 31000 009 09925 5 98.40 Tympanic 37106 009 31452 5 57.00 mm[Hg] - Sitting 129.00 mm[Hg] - Sitting 98.30 Tympanic 97.00 % 65.00/ min 18.00/min 58779 009 91662 1 255.00 mg/dL 38530 009 21856 4 255.00 mg/dL 39287 009 00305 5 98.20 Tympanic 52902 009 21234 0 255.00 mg/dL 10243 009 05129 0 98.20 Tympanic 70747 009 79371 4 63.00 mm[Hg] - Lying Down 102.00 mm[Hg] - Lying Down 58.00/ min 13622 009 71746 0 167.00 mg/dL 50572 009 95792 1 167.00 mg/dL 32003 009 04765 2 164.00 mg/dL 60910 009 13030 1 164.00 mg/dL 35032 009 08669 5 208.00 mg/dL 19245 010 58801 2 214.00 mg/dL 21412 010 07584 0 214.00 mg/dL 94757 010 52335 7 214.00 mg/dL 74958 010 23581 6 64.00 mm[Hg] - Sitting 110.00 mm[Hg] - Sitting 72.00/ min 25482 010 59135 7 98.40 Tympanic
--- OUTSIDE RECORDS SUMMARY | 2024-10-03 11:18 | External Medical Summary | Continuity Of Care Document ---
Author Name Unknown Address [address] [address] Organization [facility] () Care Team Providers Care Stock Broker Supervisor Name Role Phone DO Machado Amy Primary Care Provider [phone] Allergies Allergy Reaction Start Date End Date [...] 3 0.1 mL 08/29 Inactiv e 2023 57800 22685 0 1 time Intrad ermal False Tubersol 5 tub. unit/0.1 mL intradermal injection solution [Tuberculin PPD] 0.1mL Intradermal 1 time For PPD 2nd Step Give 2nd Step PPD Day 1 and Read results Day 3 (schedule 7 days after 1st READ) 0.1mL 09/08 Active 2023 98542 98934 0 1 time Intrad ermal False Humalog [...] order For Diabetes 08/25 Inactiv e 2023 62098 46035 9 4 times a day Subcut aneous False Aspirin 325 mg tablet [generic] 325 By Mouth Twice daily For Anticoagulati on 325 09/25 Active 2023 92964 79795 1 Twice daily By Mouth False Ferrous sulfate 325 mg (65 mg iron) tablet [generic] 325 By Mouth Once daily For anemia 325 2023 Active 2023 34721 90941 5 Once daily By Mouth False Linezolid 600 mg tablet [generic] 600 mg By Mouth Every 12 hours For MRSA INFECTION L BKA 600 mg 08/25 Inactiv e 2023 29232 43155 1 Every 12 hours By Mouth False Cefpodoxime 200 mg tablet [generic] 400 mg By Mouth Twice daily For MRSA INFECTION L BKA 400 mg 08/25 Inactiv e 2023 21281 61873 0 Twice daily By Mouth False Coenzyme Q10 100 mg tablet [generic] 100 mg By Mouth Once daily For SUPP 100 mg 2023 Active 2023 14976 25447 0 Once daily By Mouth False Levothyroxi ne 50 mcg tablet [generic] 50mcg By Mouth Once daily For hypothyroidis m 50mcg 2023 Active 2023 47905 44574 0 Once daily By Mouth False One A Day Men Complete 240 mcg-25 mcg-300 mcg tablet 1 tab By Mouth Once daily For supplement 1 tab 2023 Active 2023 98760 11415 1 Once daily By Mouth False Cholecalcif adalberto (vitamin D3) 50 mcg (2,000 unit) tablet [generic] 1 TAB By Mouth Once daily For SUPP 1 TAB 2023 Active 2023 66032 11751 1 Once daily By Mouth False Cetirizine 10 mg tablet [generic] 1 TAB By Mouth At bedtime For Allergies 1 TAB 2023 Active 2023 37386 42345 0 At bedtime By Mouth False Timolol maleate 0.25 % eye drops [generic] 1 drop Both Eyes Twice daily For glaucoma 1 drop 2023 Active 2023 56484 58754 5 Twice daily Both Eyes False Alendronate 35 mg tablet [generic] 35mg By Mouth Every week For SIADH 35mg 2023 Active 2023 13186 35832 5 Every week By Mouth False Lantus Solostar U-100 Insulin 100 unit/mL (3 mL) subcutaneou s pen 18 units Subcutaneous Every morning For DIABETES 18 units 08/25 Inactiv e 2023 40759 16032 0 Every morning Subcut aneous False Lantus Solostar U-100 Insulin 100 unit/mL (3 mL) subcutaneou s pen 18 units Subcutaneous Every morning For DIABETES 18 units 2023 Active 2023 43850 14563 0 Every morning Subcut aneous False Linezolid 600 mg tablet [generic] 600 mg By Mouth Every 12 hours For MRSA INFECTION L BKA 600 mg 08/28 Inactiv e 2023 41291 52763 1 Every 12 hours By Mouth False [...] order For Diabetes 08/31 Inactiv e 2023 92799 10067 9 4 times a day Subcut aneous False Cefpodoxime 200 mg tablet [generic] 400 mg By Mouth Twice daily For MRSA INFECTION L BKA 400 mg 08/28 Inactiv e 2023 35565 63532 0 Twice daily By Mouth False Brimonidine 0.1 % eye drops [generic] 1 drop Both Eyes Twice daily For glaucoma 1 drop 2023 Active 2023 83488 16281 0 Twice daily Both Eyes False Metoprolol succinate ER 50 mg tablet,exte nded release 24 hr [generic] 50 mg By Mouth Once daily HOLD FOR SBP <100, or pulse <60 For HTN 50 mg 2023 Active 2023 22651 95628 1 Once daily By Mouth False Amlodipine 2.5 mg tablet [generic] 2.5 mg By Mouth Once daily For HTN 2.5 mg 2023 Active 2023 10510 15667 5 Once daily By Mouth False Docusate sodium 100 mg capsule [generic] 100mg By Mouth Twice daily as needed For constipation HOLD FOR LOOSE STOOLS 100mg 2023 Active 2023 53281 75322 1 Twice daily as needed By Mouth False Atorvastati n 40 mg tablet [generic] 40mg By Mouth Once daily For HDL 40mg 08/26 Inactiv e 2023 58315 18127 5 Once daily By Mouth False Tylenol 325 mg tablet 2 tabs By Mouth Every 4 hours as needed For Pain DO NOT EXCEED 3000 MG APAP/24 Hours 2 tabs 2023 Active 2023 92370 81132 0 Every 4 hours as needed By Mouth False Tylenol 325 mg tablet 2 tabs By Mouth Every 4 hours as needed For Fever >100 DO NOT EXCEED 3000 MG APAP/24 Hours 2 tabs 2023 Active 2023 73765 78114 0 Every 4 hours as needed By Mouth False Dulcolax (bisacodyl) 10 mg rectal suppository One Suppository per rectum PRN if Milk of Magnisia ineffective. Give on day 5 of no BM 1 sup 2023 Active 2023 42496 23346 1 Daily as needed Rectal False Fleet Enema 19 gram-7 gram/118 mL Administer per rectum PRN one time if dulcolax suppository not effective. Give on day 6 of no BM 1 2023 Active 2023 14619 22112 6 Daily as needed Rectal False Dextrose 50 % in water (D50W) intravenous solution [generic] Dextrose 50% evonne 20-50 ml (slow push) Intravenous if Glucagon not effective after 15 minutes. CALL 911 for ED Evaluation. 50% evonne 2023 Active 2023 64495 04321 9 Intrav enous False Glucagon (HCl) Emergency Kit 1 mg solution for injection Administer Glucagon 1 mg Intramuscular if 15 minutes after GLucose Gel is administered Glucose remains less than 70 1 mg 2023 Active 2023 32427 63141 2 Intram uscula r False Glucose Gel 40 % oral gel [Dextrose] PRN If resident is unable to swallow (with or without symptoms) and Glucose results less than 70 give GLucose 40% Gel 1 tube orally - Recheck Glucose 15 minutes after administratio n. 1 tube 2023 Active 2023 75515 54406 8 By Mouth False Milk of Magnesia 400 mg/5 mL oral suspension [Magnesium hydroxide] PRN 30ml By Mouth Daily as needed for constipation one time daily if no BM, on day 4 of no BM (PRN refer to instructions) For Constipation 30 mL 2023 Active 2023 29264 41256 6 Daily as needed By Mouth False Atorvastati n 40 mg tablet [generic] 08/26 Inactiv e 2023 59585 39722 5 Atorvastati n 40 mg tablet [generic] 40mg By Mouth Once daily For HDL 40mg 2023 Active 2023 10252 49071 5 Once daily By Mouth False Insulin aspart (U-100) 100 unit/mL (3 mL) subcutaneou s pen [generic] 15 units Subcutaneous 1 time For dm 15 units 08/26 Inactiv e 2023 17898 77300 5 1 time Subcut aneous False Humalog KwikPen (U-100) Insulin 100 unit/mL subcutaneou s 15 units Subcutaneous 1 time For dm 15 units 08/27 Inactiv e 2023 70942 12811 9 1 time Subcut aneous False Linezolid 600 mg tablet [generic] 600 mg By Mouth Every 12 hours For MRSA INFECTION L BKA 600 mg 09/06 Active 2023 77528 65047 1 Every 12 hours By Mouth False Cefpodoxime 200 mg tablet [generic] 400 mg By Mouth Twice daily For MRSA INFECTION L BKA 400 mg 08/31 Inactiv e 2023 44652 51602 0 Twice daily By Mouth False Senna 8.6 mg tablet 8.6 mg By Mouth Once daily For Constipation 8.6 mg 2023 Active 2023 32962 10511 1 Once daily By Mouth False Humalog [...] abnormalities . Per Carb 2023 Active 2023 84367 94146 9 4 times a day Subcut aneous False Humalog KwikPen (U-100) Insulin 100 unit/mL subcutaneou s 08/31 Inactiv e 2023 21091 76467 9 MediHoney HCS 4 1/2in X 4 1/2in bandage Cleanse area with NSS, apply one mediney hydrocolloid dressing, non adherent dressing, kerlix secure with paper tape daily. For wound stage III 1 2023 Active 2023 91439 42238 1 Once daily Topica l False Problems Code Description Start Date End Date Status D64.9 Anemia, unspecified 08/25/2024 Activ e I25.10 Atherosclerotic hear t disease of [place] coronary artery without angina pectoris 08/25/2024 Active [...] weight Temperature SpO2 Blood Sugar Pulse Respirations 88019 8 67.00 mm[Hg] - Sitting 145.00 mm[Hg] - Sitting 98.50 Forehead Scan 96.00 % 81.00/ min 16.00/min 86404 2 67.00 mm[Hg] - Sitting 145.00 mm[Hg] - Sitting 98.50 Tympanic 81.00/ min 16.00/min 20227 004 95445 5 56.00 mm[Hg] - Sitting 142.00 mm[Hg] - Sitting 136.40 NI 100.20 Tympanic 96.00 % 92.00/ min 18.00/min 12392 004 93010 6 74078 004 35276 4 143.00 mg/dL 64605 004 79964 0 97.80 Tympanic 75945 005 03676 7 60.00 mm[Hg] - Sitting 140.00 mm[Hg] - Sitting 98.00 Tympanic 84.00/ min 18.00/min 21091 005 87801 0 63.00 mm[Hg] - Sitting 141.00 mm[Hg] - Sitting 98.20 Tympanic 92.00 % 63.00/ min 16.00/min 17915 005 16671 8 69.00 mm[Hg] - Sitting 106.00 mm[Hg] - Sitting 97.20 Tympanic 21592 005 38717 7 69.00/ min 16.00/min 59708 005 31336 3 69.00 mm[Hg] - Sitting 106.00 mm[Hg] - Sitting 98.20 Tympanic 69.00/ min 16.00/min 64704 005 57773 1 367.00 mg/dL 97842 005 15662 2 97.20 Tympanic 84962 005 67959 4 97.20 Tympanic 84442 005 60309 0 69.00 mm[Hg] - Sitting 106.00 mm[Hg] - Sitting 69.00/ min 42000 005 78078 3 452.00 mg/dL 78876 005 37907 3 452.00 mg/dL 78719 005 16654 5 352.00 mg/dL 83964 005 08516 3 352.00 mg/dL 53474 005 34529 7 98.20 Tympanic 08101 005 19607 3 101.00 mg/dL 85981 005 67754 8 101.00 mg/dL 89559 006 25485 4 66.00 mm[Hg] - Sitting 107.00 mm[Hg] - Sitting 98.00 Tympanic 66.00/ min 18.00/min 83666 006 78883 0 62.00 mm[Hg] - Sitting 162.00 mm[Hg] - Sitting 98.20 Tympanic 96.00 % 60.00/ min 16.00/min 55372 006 20582 4 62.00 mm[Hg] - Sitting 162.00 mm[Hg] - Sitting 98.00 Tympanic 70.00/ min 18.00/min 40156 006 60292 8 62.00 mm[Hg] - Sitting 162.00 mm[Hg] - Sitting 98.20 Tympanic 70.00/ min 18.00/min 61606 006 72627 2 66.00 mm[Hg] - Sitting 132.00 mm[Hg] - Sitting 98.60 Tympanic 74.00/ min 16.00/min 13351 006 41001 5 159.00 mg/dL 90923 006 29979 1 159.00 mg/dL 83821 006 53250 8 98.00 Tympanic 01426 006 03631 2 62.00 mm[Hg] - Sitting 162.00 mm[Hg] - Sitting 70.00/ min 57067 006 16462 7 264.00 mg/dL 89794 006 89770 7 264.00 mg/dL 96622 006 45346 4 196.00 mg/dL 91656 006 21661 3 98.20 Tympanic 05064 006 39382 6 271.00 mg/dL 00882 007 07862 3 97.20 Tympanic 48614 007 54057 2 63.00 mm[Hg] - Sitting 132.00 mm[Hg] - Sitting 98.50 Tympanic 94.00 % 66.00/ min 16.00/min 22690 007 46600 5 188.00 mg/dL 66240 007 30717 2 188.00 mg/dL 27458 007 91997 2 188.00 mg/dL 25643 007 32450 7 97.20 Tympanic 55531 007 81153 6 97.20 Tympanic 11101 007 40714 5 67.00 mm[Hg] - Sitting 152.00 mm[Hg] - Sitting 68.00/ min 92108 007 05047 0 141.00 mg/dL 84405 007 88881 3 141.00 mg/dL 79695 007 77726 1 366.00 mg/dL 58468 007 05161 7 366.00 mg/dL 71680 007 05661 7 98.00 Tympanic 31253 007 94965 6 324.00 mg/dL 37285 007 76738 3 98.00 Tympanic 46933 007 51029 7 324.00 mg/dL 88880 008 14708 0 98.00 Tympanic 69463 008 15283 2 97.90 Tympanic 42534 008 22075 0 98.20 Tympanic 45235 008 33914 0 73.00 mm[Hg] - Sitting 156.00 mm[Hg] - Sitting 98.60 Tympanic 99.00 % 66.00/ min 20.00/min 42528 008 00928 5 137.00 mg/dL 76988 008 74077 7 137.00 mg/dL 21549 008 82621 2 97.90 Tympanic 38766 008 88431 1 137.00 mg/dL 51878 008 94690 8 97.90 Tympanic 21414 008 27228 5 67.00 mm[Hg] - Sitting 124.00 /min 64117 008 24734 6 212.00 mg/dL 24961 008 01707 6 212.00 mg/dL 19995 008 59812 9 317.00 mg/dL 57782 008 45086 4 317.00 mg/dL 44968 008 35550 8 252.00 mg/dL 96419 008 64537 0 98.70 Tympanic 22715 008 69530 7 252.00 mg/dL 67772 008 48548 3 98.70 Tympanic 64468 009 89897 9 98.70 Tympanic 03560 009 06304 3 98.20 Tympanic 28455 009 00523 5 98.40 Tympanic 29954 009 37017 5 57.00 mm[Hg] - Sitting 129.00 mm[Hg] - Sitting 98.30 Tympanic 97.00 % 65.00/ min 18.00/min 59093 009 10482 1 255.00 mg/dL 90565 009 24851 4 255.00 mg/dL 96173 009 59116 5 98.20 Tympanic 89397 009 75818 0 255.00 mg/dL 94185 009 54915 0 98.20 Tympanic 80246 009 95838 4 63.00 mm[Hg] - Lying Down 102.00 mm[Hg] - Lying Down 58.00/ min 22806 009 23169 0 167.00 mg/dL 07012 009 40139 1 167.00 mg/dL 51642 009 66478 2 164.00 mg/dL 34119 009 92769 1 164.00 mg/dL 89594 009 49554 5 208.00 mg/dL 17547 010 48168 2 214.00 mg/dL 56879 010 47319 0 214.00 mg/dL 81535 010 85881 7 214.00 mg/dL 58291 6 64.00 mm[Hg] - Sitting 110.00 mm[Hg] - Sitting 72.00/ min 70964 7 98.40 Tympanic 80150 1 212.00 mg/dL
--- OUTSIDE RECORDS SUMMARY | 2024-10-03 11:18 | External Medical Summary | Continuity Of Care Document ---
Author Name Unknown Address [address] [address] Organization [facility] () Care Team Providers Care Epic Director Name Role Phone DO Machado Amy Primary Care Provider [phone] Allergies Allergy Reaction Start Date End Date [...] 3 0.1 mL 08/29 Inactiv e 2023 72630 95708 0 1 time Intrad ermal False Tubersol 5 tub. unit/0.1 mL intradermal injection solution [Tuberculin PPD] 0.1mL Intradermal 1 time For PPD 2nd Step Give 2nd Step PPD Day 1 and Read results Day 3 (schedule 7 days after 1st READ) 0.1mL 09/08 Active 2023 33337 17796 0 1 time Intrad ermal False Humalog [...] order For Diabetes 08/25 Inactiv e 2023 38350 78617 9 4 times a day Subcut aneous False Aspirin 325 mg tablet [generic] 325 By Mouth Twice daily For Anticoagulati on 325 09/25 Active 2023 76464 51902 1 Twice daily By Mouth False Ferrous sulfate 325 mg (65 mg iron) tablet [generic] 325 By Mouth Once daily For anemia 325 2023 Active 2023 66386 07567 5 Once daily By Mouth False Linezolid 600 mg tablet [generic] 600 mg By Mouth Every 12 hours For MRSA INFECTION L BKA 600 mg 08/25 Inactiv e 2023 69071 65602 1 Every 12 hours By Mouth False Cefpodoxime 200 mg tablet [generic] 400 mg By Mouth Twice daily For MRSA INFECTION L BKA 400 mg 08/25 Inactiv e 2023 58130 83085 0 Twice daily By Mouth False Coenzyme Q10 100 mg tablet [generic] 100 mg By Mouth Once daily For SUPP 100 mg 2023 Active 2023 63581 79728 0 Once daily By Mouth False Levothyroxi ne 50 mcg tablet [generic] 50mcg By Mouth Once daily For hypothyroidis m 50mcg 2023 Active 2023 43329 82437 0 Once daily By Mouth False One A Day Men Complete 240 mcg-25 mcg-300 mcg tablet 1 tab By Mouth Once daily For supplement 1 tab 2023 Active 2023 04194 03228 1 Once daily By Mouth False Cholecalcif adalberto (vitamin D3) 50 mcg (2,000 unit) tablet [generic] 1 TAB By Mouth Once daily For SUPP 1 TAB 2023 Active 2023 30496 61979 1 Once daily By Mouth False Cetirizine 10 mg tablet [generic] 1 TAB By Mouth At bedtime For Allergies 1 TAB 2023 Active 2023 77468 20161 0 At bedtime By Mouth False Timolol maleate 0.25 % eye drops [generic] 1 drop Both Eyes Twice daily For glaucoma 1 drop 2023 Active 2023 60862 39798 5 Twice daily Both Eyes False Alendronate 35 mg tablet [generic] 35mg By Mouth Every week For SIADH 35mg 2023 Active 2023 86912 77603 5 Every week By Mouth False Lantus Solostar U-100 Insulin 100 unit/mL (3 mL) subcutaneou s pen 18 units Subcutaneous Every morning For DIABETES 18 units 08/25 Inactiv e 2023 55404 94287 0 Every morning Subcut aneous False Lantus Solostar U-100 Insulin 100 unit/mL (3 mL) subcutaneou s pen 18 units Subcutaneous Every morning For DIABETES 18 units 2023 Active 2023 64319 53516 0 Every morning Subcut aneous False Linezolid 600 mg tablet [generic] 600 mg By Mouth Every 12 hours For MRSA INFECTION L BKA 600 mg 08/28 Inactiv e 2023 00128 36274 1 Every 12 hours By Mouth False [...] order For Diabetes 08/31 Inactiv e 2023 05654 01129 9 4 times a day Subcut aneous False Cefpodoxime 200 mg tablet [generic] 400 mg By Mouth Twice daily For MRSA INFECTION L BKA 400 mg 08/28 Inactiv e 2023 19595 16775 0 Twice daily By Mouth False Brimonidine 0.1 % eye drops [generic] 1 drop Both Eyes Twice daily For glaucoma 1 drop 2023 Active 2023 50265 95413 0 Twice daily Both Eyes False Metoprolol succinate ER 50 mg tablet,exte nded release 24 hr [generic] 50 mg By Mouth Once daily HOLD FOR SBP <100, or pulse <60 For HTN 50 mg 2023 Active 2023 55519 32324 1 Once daily By Mouth False Amlodipine 2.5 mg tablet [generic] 2.5 mg By Mouth Once daily For HTN 2.5 mg 2023 Active 2023 09255 03981 5 Once daily By Mouth False Docusate sodium 100 mg capsule [generic] 100mg By Mouth Twice daily as needed For constipation HOLD FOR LOOSE STOOLS 100mg 2023 Active 2023 94233 32838 1 Twice daily as needed By Mouth False Atorvastati n 40 mg tablet [generic] 40mg By Mouth Once daily For HDL 40mg 08/26 Inactiv e 2023 67276 25213 5 Once daily By Mouth False Tylenol 325 mg tablet 2 tabs By Mouth Every 4 hours as needed For Pain DO NOT EXCEED 3000 MG APAP/24 Hours 2 tabs 2023 Active 2023 54579 34525 0 Every 4 hours as needed By Mouth False Tylenol 325 mg tablet 2 tabs By Mouth Every 4 hours as needed For Fever >100 DO NOT EXCEED 3000 MG APAP/24 Hours 2 tabs 2023 Active 2023 22627 07062 0 Every 4 hours as needed By Mouth False Dulcolax (bisacodyl) 10 mg rectal suppository One Suppository per rectum PRN if Milk of Magnisia ineffective. Give on day 5 of no BM 1 sup 2023 Active 2023 96627 95692 1 Daily as needed Rectal False Fleet Enema 19 gram-7 gram/118 mL Administer per rectum PRN one time if dulcolax suppository not effective. Give on day 6 of no BM 1 2023 Active 2023 27830 83068 6 Daily as needed Rectal False Dextrose 50 % in water (D50W) intravenous solution [generic] Dextrose 50% evonne 20-50 ml (slow push) Intravenous if Glucagon not effective after 15 minutes. CALL 911 for ED Evaluation. 50% evonne 2023 Active 2023 90528 94635 9 Intrav enous False Glucagon (HCl) Emergency Kit 1 mg solution for injection Administer Glucagon 1 mg Intramuscular if 15 minutes after GLucose Gel is administered Glucose remains less than 70 1 mg 2023 Active 2023 28785 90015 2 Intram uscula r False Glucose Gel 40 % oral gel [Dextrose] PRN If resident is unable to swallow (with or without symptoms) and Glucose results less than 70 give GLucose 40% Gel 1 tube orally - Recheck Glucose 15 minutes after administratio n. 1 tube 2023 Active 2023 48815 20456 8 By Mouth False Milk of Magnesia 400 mg/5 mL oral suspension [Magnesium hydroxide] PRN 30ml By Mouth Daily as needed for constipation one time daily if no BM, on day 4 of no BM (PRN refer to instructions) For Constipation 30 mL 2023 Active 2023 98152 66866 6 Daily as needed By Mouth False Atorvastati n 40 mg tablet [generic] 08/26 Inactiv e 2023 78767 93997 5 Atorvastati n 40 mg tablet [generic] 40mg By Mouth Once daily For HDL 40mg 2023 Active 2023 17762 38681 5 Once daily By Mouth False Insulin aspart (U-100) 100 unit/mL (3 mL) subcutaneou s pen [generic] 15 units Subcutaneous 1 time For dm 15 units 08/26 Inactiv e 2023 43149 99668 5 1 time Subcut aneous False Humalog KwikPen (U-100) Insulin 100 unit/mL subcutaneou s 15 units Subcutaneous 1 time For dm 15 units 08/27 Inactiv e 2023 88743 33414 9 1 time Subcut aneous False Linezolid 600 mg tablet [generic] 600 mg By Mouth Every 12 hours For MRSA INFECTION L BKA 600 mg 09/06 Active 2023 10059 73155 1 Every 12 hours By Mouth False Cefpodoxime 200 mg tablet [generic] 400 mg By Mouth Twice daily For MRSA INFECTION L BKA 400 mg 08/31 Inactiv e 2023 70206 45040 0 Twice daily By Mouth False Senna 8.6 mg tablet 8.6 mg By Mouth Once daily For Constipation 8.6 mg 2023 Active 2023 06701 00831 1 Once daily By Mouth False Humalog [...] notified of abnormalities . 2023 Active 2023 35693 03595 9 4 times a day Subcut aneous False Humalog KwikPen (U-100) Insulin 100 unit/mL subcutaneou s 08/31 Inactiv e 2023 10593 74318 9 MediHoney HCS 4 1/2in X 4 1/2in bandage Cleanse area with NSS, apply one medihoney hydrocolloid dressing, non adherent dressing, kerlix secure with paper tape daily. 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 08/25/2024 Active [...] weight Temperature SpO2 Blood Sugar Pulse Respirations 54240 8 67.00 mm[Hg] - Sitting 145.00 mm[Hg] - Sitting 98.50 Forehead Scan 96.00 % 81.00/ min 16.00/min 68724 2 67.00 mm[Hg] - Sitting 145.00 mm[Hg] - Sitting 98.50 Tympanic 81.00/ min 16.00/min 01506 004 13330 5 56.00 mm[Hg] - Sitting 142.00 mm[Hg] - Sitting 136.40 NI 100.20 Tympanic 96.00 % 92.00/ min 18.00/min 19254 004 40714 6 66589 004 89974 4 143.00 mg/dL 64766 004 96134 0 97.80 Tympanic 42818 005 55959 7 60.00 mm[Hg] - Sitting 140.00 mm[Hg] - Sitting 98.00 Tympanic 84.00/ min 18.00/min 34053 005 90625 0 63.00 mm[Hg] - Sitting 141.00 mm[Hg] - Sitting 98.20 Tympanic 92.00 % 63.00/ min 16.00/min 99845 005 55050 8 69.00 mm[Hg] - Sitting 106.00 mm[Hg] - Sitting 97.20 Tympanic 97149 005 41611 7 69.00/ min 16.00/min 22205 005 12894 3 69.00 mm[Hg] - Sitting 106.00 mm[Hg] - Sitting 98.20 Tympanic 69.00/ min 16.00/min 17044 005 96862 1 367.00 mg/dL 36498 005 13221 2 97.20 Tympanic 55022 005 03802 4 97.20 Tympanic 34947 005 30456 0 69.00 mm[Hg] - Sitting 106.00 mm[Hg] - Sitting 69.00/ min 16596 005 37176 3 452.00 mg/dL 98058 005 63925 3 452.00 mg/dL 28995 005 17535 5 352.00 mg/dL 44970 005 88152 3 352.00 mg/dL 98939 005 15459 7 98.20 Tympanic 06071 005 47763 3 101.00 mg/dL 64703 005 8 101.00 mg/dL 79078 006 61806 4 66.00 mm[Hg] - Sitting 107.00 mm[Hg] - Sitting 98.00 Tympanic 66.00/ min 18.00/min 31165 006 45049 0 62.00 mm[Hg] - Sitting 162.00 mm[Hg] - Sitting 98.20 Tympanic 96.00 % 60.00/ min 16.00/min 68889 006 37326 4 62.00 mm[Hg] - Sitting 162.00 mm[Hg] - Sitting 98.00 Tympanic 70.00/ min 18.00/min 45938 006 04198 8 62.00 mm[Hg] - Sitting 162.00 mm[Hg] - Sitting 98.20 Tympanic 70.00/ min 18.00/min 39471 006 05770 2 66.00 mm[Hg] - Sitting 132.00 mm[Hg] - Sitting 98.60 Tympanic 74.00/ min 16.00/min 52562 006 84645 5 159.00 mg/dL 23772 006 18837 1 159.00 mg/dL 58472 006 90907 8 98.00 Tympanic 85438 006 55592 2 62.00 mm[Hg] - Sitting 162.00 mm[Hg] - Sitting 70.00/ min 50460 006 53826 7 264.00 mg/dL 84380 006 04842 7 264.00 mg/dL 02704 006 40517 4 196.00 mg/dL 11551 006 32072 3 98.20 Tympanic 17484 006 09032 6 271.00 mg/dL 57262 007 52436 3 97.20 Tympanic 99602 007 69524 2 63.00 mm[Hg] - Sitting 132.00 mm[Hg] - Sitting 98.50 Tympanic 94.00 % 66.00/ min 16.00/min 97131 007 21803 5 188.00 mg/dL 28422 007 15640 2 188.00 mg/dL 10028 007 61992 2 188.00 mg/dL 71601 007 12623 7 97.20 Tympanic 87796 007 34184 6 97.20 Tympanic 62245 007 01047 5 67.00 mm[Hg] - Sitting 152.00 mm[Hg] - Sitting 68.00/ min 14660 007 86407 0 141.00 mg/dL 67938 007 10913 3 141.00 mg/dL 36376 007 10179 1 366.00 mg/dL 62814 007 00354 7 366.00 mg/dL 95169 007 80407 7 98.00 Tympanic 73699 007 71032 6 324.00 mg/dL 54276 007 10513 3 98.00 Tympanic 30238 007 52136 7 324.00 mg/dL 77884 008 12998 0 98.00 Tympanic 99813 008 82841 2 97.90 Tympanic 96011 008 48225 0 98.20 Tympanic 10187 008 25983 0 73.00 mm[Hg] - Sitting 156.00 mm[Hg] - Sitting 98.60 Tympanic 99.00 % 66.00/ min 20.00/min 39811 008 16057 5 137.00 mg/dL 03933 008 30262 7 137.00 mg/dL 29615 008 62170 2 97.90 Tympanic 50775 008 80425 1 137.00 mg/dL 74255 008 09129 8 97.90 Tympanic 47259 008 00352 5 67.00 mm[Hg] - Sitting 124.00 /min 46264 008 75373 6 212.00 mg/dL 19490 008 10516 6 212.00 mg/dL 48885 008 49640 9 317.00 mg/dL 05404 008 71765 4 317.00 mg/dL 68304 008 03075 8 252.00 mg/dL 35204 008 89212 0 98.70 Tympanic 92710 008 41889 7 252.00 mg/dL 93433 008 18042 3 98.70 Tympanic 87183 009 52480 9 98.70 Tympanic 24242 009 65897 3 98.20 Tympanic 07030 009 09625 5 98.40 Tympanic 78509 009 05569 5 57.00 mm[Hg] - Sitting 129.00 mm[Hg] - Sitting 98.30 Tympanic 97.00 % 65.00/ min 18.00/min 58649 009 61505 1 255.00 mg/dL 93354 009 54225 4 255.00 mg/dL 18480 009 54929 5 98.20 Tympanic 28581 009 88176 0 255.00 mg/dL 68195 009 06135 0 98.20 Tympanic 05082 009 46761 4 63.00 mm[Hg] - Lying Down 102.00 mm[Hg] - Lying Down 58.00/ min 88661 009 25941 0 167.00 mg/dL 81014 009 54094 1 167.00 mg/dL 32595 009 53125 2 164.00 mg/dL 13398 009 60691 1 164.00 mg/dL 17676 009 26626 5 208.00 mg/dL 46120 010 56371 2 214.00 mg/dL 84920 010 58024 0 214.00 mg/dL 92457 010 32930 7 214.00 mg/dL 71849 010 53584 6 64.00 mm[Hg] - Sitting 110.00 mm[Hg] - Sitting 72.00/ min 331 7 98.40 Tympanic 36796 1 212.00 mg/dL
--- OUTSIDE RECORDS SUMMARY | 2024-10-03 11:18 | External Medical Summary | Continuity Of Care Document ---
Author Name Unknown Address [address] [address] Organization [facility] () Care Team Providers Care Compliance Reviewer Name Role Phone DO Machado Amy Primary Care Provider [phone] Allergies Allergy Reaction Start Date End Date [...] 3 0.1 mL 08/29 Inactiv e 2023 10598 31362 0 1 time Intrad ermal False Tubersol 5 tub. unit/0.1 mL intradermal injection solution [Tuberculin PPD] 0.1mL Intradermal 1 time For PPD 2nd Step Give 2nd Step PPD Day 1 and Read results Day 3 (schedule 7 days after 1st READ) 0.1mL 09/08 Active 2023 03126 14374 0 1 time Intrad ermal False Humalog [...] order For Diabetes 08/25 Inactiv e 2023 66851 71775 9 4 times a day Subcut aneous False Aspirin 325 mg tablet [generic] 325 By Mouth Twice daily For Anticoagulati on 325 09/25 Active 2023 88629 21512 1 Twice daily By Mouth False Ferrous sulfate 325 mg (65 mg iron) tablet [generic] 325 By Mouth Once daily For anemia 325 2023 Active 2023 73607 97055 5 Once daily By Mouth False Linezolid 600 mg tablet [generic] 600 mg By Mouth Every 12 hours For MRSA INFECTION L BKA 600 mg 08/25 Inactiv e 2023 67002 36575 1 Every 12 hours By Mouth False Cefpodoxime 200 mg tablet [generic] 400 mg By Mouth Twice daily For MRSA INFECTION L BKA 400 mg 08/25 Inactiv e 2023 70003 66970 0 Twice daily By Mouth False Coenzyme Q10 100 mg tablet [generic] 100 mg By Mouth Once daily For SUPP 100 mg 2023 Active 2023 38988 20425 0 Once daily By Mouth False Levothyroxi ne 50 mcg tablet [generic] 50mcg By Mouth Once daily For hypothyroidis m 50mcg 2023 Active 2023 21947 52963 0 Once daily By Mouth False One A Day Men Complete 240 mcg-25 mcg-300 mcg tablet 1 tab By Mouth Once daily For supplement 1 tab 2023 Active 2023 72815 99967 1 Once daily By Mouth False Cholecalcif adalberto (vitamin D3) 50 mcg (2,000 unit) tablet [generic] 1 TAB By Mouth Once daily For SUPP 1 TAB 2023 Active 2023 40969 53562 1 Once daily By Mouth False Cetirizine 10 mg tablet [generic] 1 TAB By Mouth At bedtime For Allergies 1 TAB 2023 Active 2023 91324 93581 0 At bedtime By Mouth False Timolol maleate 0.25 % eye drops [generic] 1 drop Both Eyes Twice daily For glaucoma 1 drop 2023 Active 2023 05518 25471 5 Twice daily Both Eyes False Alendronate 35 mg tablet [generic] 35mg By Mouth Every week For SIADH 35mg 2023 Active 2023 40673 60199 5 Every week By Mouth False Lantus Solostar U-100 Insulin 100 unit/mL (3 mL) subcutaneou s pen 18 units Subcutaneous Every morning For DIABETES 18 units 08/25 Inactiv e 2023 33512 02240 0 Every morning Subcut aneous False Lantus Solostar U-100 Insulin 100 unit/mL (3 mL) subcutaneou s pen 18 units Subcutaneous Every morning For DIABETES 18 units 2023 Active 2023 02194 81520 0 Every morning Subcut aneous False Linezolid 600 mg tablet [generic] 600 mg By Mouth Every 12 hours For MRSA INFECTION L BKA 600 mg 08/28 Inactiv e 2023 65170 02155 1 Every 12 hours By Mouth False [...] one-time order For Diabetes 2023 Active 2023 66925 14999 9 4 times a day Subcut aneous False Cefpodoxime 200 mg tablet [generic] 400 mg By Mouth Twice daily For MRSA INFECTION L BKA 400 mg 08/28 Inactiv e 2023 03088 56953 0 Twice daily By Mouth False Brimonidine 0.1 % eye drops [generic] 1 drop Both Eyes Twice daily For glaucoma 1 drop 2023 Active 2023 89949 21145 0 Twice daily Both Eyes False Metoprolol succinate ER 50 mg tablet,exte nded release 24 hr [generic] 50 mg By Mouth Once daily HOLD FOR SBP <100, or pulse <60 For HTN 50 mg 2023 Active 2023 53824 95213 1 Once daily By Mouth False Amlodipine 2.5 mg tablet [generic] 2.5 mg By Mouth Once daily For HTN 2.5 mg 2023 Active 2023 64840 00784 5 Once daily By Mouth False Docusate sodium 100 mg capsule [generic] 100mg By Mouth Twice daily as needed For constipation HOLD FOR LOOSE STOOLS 100mg 2023 Active 2023 51339 26485 1 Twice daily as needed By Mouth False Atorvastati n 40 mg tablet [generic] 40mg By Mouth Once daily For HDL 40mg 08/26 Inactiv e 2023 86836 37411 5 Once daily By Mouth False Tylenol 325 mg tablet 2 tabs By Mouth Every 4 hours as needed For Pain DO NOT EXCEED 3000 MG APAP/24 Hours 2 tabs 2023 Active 2023 69562 75500 0 Every 4 hours as needed By Mouth False Tylenol 325 mg tablet 2 tabs By Mouth Every 4 hours as needed For Fever >100 DO NOT EXCEED 3000 MG APAP/24 Hours 2 tabs 2023 Active 2023 38478 81329 0 Every 4 hours as needed By Mouth False Dulcolax (bisacodyl) 10 mg rectal suppository One Suppository per rectum PRN if Milk of Magnisia ineffective. Give on day 5 of no BM 1 sup 2023 Active 2023 23271 99859 1 Daily as needed Rectal False Fleet Enema 19 gram-7 gram/118 mL Administer per rectum PRN one time if dulcolax suppository not effective. Give on day 6 of no BM 1 2023 Active 2023 82929 52986 6 Daily as needed Rectal False Dextrose 50 % in water (D50W) intravenous solution [generic] Dextrose 50% evonne 20-50 ml (slow push) Intravenous if Glucagon not effective after 15 minutes. CALL 911 for ED Evaluation. 50% evonne 2023 Active 2023 93959 71348 9 Intrav enous False Glucagon (HCl) Emergency Kit 1 mg solution for injection Administer Glucagon 1 mg Intramuscular if 15 minutes after GLucose Gel is administered Glucose remains less than 70 1 mg 2023 Active 2023 02885 97505 2 Intram uscula r False Glucose Gel 40 % oral gel [Dextrose] PRN If resident is unable to swallow (with or without symptoms) and Glucose results less than 70 give GLucose 40% Gel 1 tube orally - Recheck Glucose 15 minutes after administratio n. 1 tube 2023 Active 2023 42230 58423 8 By Mouth False Milk of Magnesia 400 mg/5 mL oral suspension [Magnesium hydroxide] PRN 30ml By Mouth Daily as needed for constipation one time daily if no BM, on day 4 of no BM (PRN refer to instructions) For Constipation 30 mL 2023 Active 2023 60035 52911 6 Daily as needed By Mouth False Atorvastati n 40 mg tablet [generic] 08/26 Inactiv e 2023 84026 33868 5 Atorvastati n 40 mg tablet [generic] 40mg By Mouth Once daily For HDL 40mg 2023 Active 2023 53443 79141 5 Once daily By Mouth False Insulin aspart (U-100) 100 unit/mL (3 mL) subcutaneou s pen [generic] 15 units Subcutaneous 1 time For dm 15 units 08/26 Inactiv e 2023 71849 42441 5 1 time Subcut aneous False Humalog KwikPen (U-100) Insulin 100 unit/mL subcutaneou s 15 units Subcutaneous 1 time For dm 15 units 08/27 Inactiv e 2023 84075 83980 9 1 time Subcut aneous False Linezolid 600 mg tablet [generic] 600 mg By Mouth Every 12 hours For MRSA INFECTION L BKA 600 mg 09/06 Active 2023 43081 55049 1 Every 12 hours By Mouth False Cefpodoxime 200 mg tablet [generic] 400 mg By Mouth Twice daily For MRSA INFECTION L BKA 400 mg 08/31 Inactiv e 2023 20591 29310 0 Twice daily By Mouth False Senna 8.6 mg tablet 8.6 mg By Mouth Once daily For Constipation 8.6 mg 2023 Active 2023 10540 31018 1 Once daily By Mouth False MediHoney HCS 4 1/2in X 4 1/2in bandage Cleanse area with NSS, apply one medihoney hydrocolloid dressing, non adherent dressing, kerlix secure with paper tape daily. For wound stage III 1 2023 Active 2023 89411 40318 1 Once daily Topica l False Problems [...] weight Temperature SpO2 Blood Sugar Pulse Respirations 32387 8 67.00 mm[Hg] - Sitting 145.00 mm[Hg] - Sitting 98.50 Forehead Scan 96.00 % 81.00/ min 16.00/min 57144 004 27212 2 67.00 mm[Hg] - Sitting 145.00 mm[Hg] - Sitting 98.50 Tympanic 81.00/ min 16.00/min 15462 004 76178 5 56.00 mm[Hg] - Sitting 142.00 mm[Hg] - Sitting 136.40 NI 100.20 Tympanic 96.00 % 92.00/ min 18.00/min 71347 004 51240 6 87530 004 85653 4 143.00 mg/dL 62033 0 97.80 Tympanic 005 71812 7 60.00 mm[Hg] - Sitting 140.00 mm[Hg] - Sitting 98.00 Tympanic 84.00/ min 18.00/min 23388 005 49203 0 63.00 mm[Hg] - Sitting 141.00 mm[Hg] - Sitting 98.20 Tympanic 92.00 % 63.00/ min 16.00/min 45640 005 85595 8 69.00 mm[Hg] - Sitting 106.00 mm[Hg] - Sitting 97.20 Tympanic 29038 005 88755 7 69.00/ min 16.00/min 31940 005 19527 3 69.00 mm[Hg] - Sitting 106.00 mm[Hg] - Sitting 98.20 Tympanic 69.00/ min 16.00/min 94097 005 31003 1 367.00 mg/dL 72378 005 15621 2 97.20 Tympanic 96831 005 77328 4 97.20 Tympanic 81868 005 52450 0 69.00 mm[Hg] - Sitting 106.00 mm[Hg] - Sitting 69.00/ min 89553 005 52791 3 452.00 mg/dL 19902 005 02624 3 452.00 mg/dL 07545 005 47839 5 352.00 mg/dL 98169 005 17738 3 352.00 mg/dL 64258 005 83541 7 98.20 Tympanic 94299 005 24609 3 101.00 mg/dL 97218 005 38972 8 101.00 mg/dL 41427 006 12934 4 66.00 mm[Hg] - Sitting 107.00 mm[Hg] - Sitting 98.00 Tympanic 66.00/ min 18.00/min 55517 006 72034 0 62.00 mm[Hg] - Sitting 162.00 mm[Hg] - Sitting 98.20 Tympanic 96.00 % 60.00/ min 16.00/min 98623 006 59612 4 62.00 mm[Hg] - Sitting 162.00 mm[Hg] - Sitting 98.00 Tympanic 70.00/ min 18.00/min 53684 006 72898 8 62.00 mm[Hg] - Sitting 162.00 mm[Hg] - Sitting 98.20 Tympanic 70.00/ min 18.00/min 68216 006 63265 2 66.00 mm[Hg] - Sitting 132.00 mm[Hg] - Sitting 98.60 Tympanic 74.00/ min 16.00/min 18197 006 79790 5 159.00 mg/dL 17675 006 89376 1 159.00 mg/dL 68467 006 95216 8 98.00 Tympanic 22330 006 16472 2 62.00 mm[Hg] - Sitting 162.00 mm[Hg] - Sitting 70.00/ min 09284 006 70714 7 264.00 mg/dL 25377 006 72705 7 264.00 mg/dL 10993 006 41946 4 196.00 mg/dL 60287 006 12521 3 98.20 Tympanic 95788 006 34122 6 271.00 mg/dL 03723 007 33773 3 97.20 Tympanic 35589 007 28501 2 63.00 mm[Hg] - Sitting 132.00 mm[Hg] - Sitting 98.50 Tympanic 94.00 % 66.00/ min 16.00/min 41160 007 64733 5 188.00 mg/dL 40719 007 41199 2 188.00 mg/dL 25464 007 56540 2 188.00 mg/dL 96273 007 38442 7 97.20 Tympanic 90684 007 10085 6 97.20 Tympanic 29734 007 27541 5 67.00 mm[Hg] - Sitting 152.00 mm[Hg] - Sitting 68.00/ min 67579 007 12910 0 141.00 mg/dL 14370 007 40303 3 141.00 mg/dL 97030 007 90610 1 366.00 mg/dL 35107 007 89185 7 366.00 mg/dL 16416 007 50491 7 98.00 Tympanic 53722 007 65214 6 324.00 mg/dL 90394 007 12024 3 98.00 Tympanic 40049 007 91793 7 324.00 mg/dL 36341 008 61886 0 98.00 Tympanic 14698 008 49642 2 97.90 Tympanic 85724 008 43042 0 98.20 Tympanic 66289 008 23959 0 73.00 mm[Hg] - Sitting 156.00 mm[Hg] - Sitting 98.60 Tympanic 99.00 % 66.00/ min 20.00/min 25815 008 92269 5 137.00 mg/dL 79654 008 45036 7 137.00 mg/dL 51542 008 06086 2 97.90 Tympanic 21545 008 42676 1 137.00 mg/dL 52440 008 90735 8 97.90 Tympanic 48834 008 98916 5 67.00 mm[Hg] - Sitting 124.00 /min 55897 008 98226 6 212.00 mg/dL 12111 008 09327 6 212.00 mg/dL 83085 008 05196 9 317.00 mg/dL 60312 008 57224 4 317.00 mg/dL 34920 008 23419 8 252.00 mg/dL 24187 008 14978 0 98.70 Tympanic 61059 008 02925 7 252.00 mg/dL 19671 008 35156 3 98.70 Tympanic 48027 009 01907 9 98.70 Tympanic 18611 009 06499 3 98.20 Tympanic 52404 009 93604 5 98.40 Tympanic 51468 009 25922 5 57.00 mm[Hg] - Sitting 129.00 mm[Hg] - Sitting 98.30 Tympanic 97.00 % 65.00/ min 18.00/min 51188 009 99062 1 255.00 mg/dL 18614 009 12530 4 255.00 mg/dL 69471 009 86509 5 98.20 Tympanic 84083 009 40142 0 255.00 mg/dL 50219 009 78448 0 98.20 Tympanic 47583 009 75668 4 63.00 mm[Hg] - Lying Down 102.00 mm[Hg] - Lying Down 58.00/ min 31618 009 23223 0 167.00 mg/dL 17810 009 51809 1 167.00 mg/dL 83317 009 46856 2 164.00 mg/dL 88965 009 55552 1 164.00 mg/dL 99290 009 20069 5 208.00 mg/dL 95136 010 16716 2 214.00 mg/dL 04604 010 90459 0 214.00 mg/dL 47288 010 59907 7 214.00 mg/dL 76370 010 47304 6 64.00 mm[Hg] - Sitting 110.00 mm[Hg] - Sitting 72.00/ min 85171 010 25644 7 98.40 Tympanic
--- OUTSIDE RECORDS SUMMARY | 2024-10-03 11:19 | External Medical Summary | Continuity Of Care Document ---
Author Name Unknown Address [address] [address] Organization [facility] () Care Team Providers Care Ride Operator Name Role Phone DO Machado Amy Primary Care Provider [phone] Allergies Allergy Reaction Start Date End Date [...] 3 0.1 mL 08/29 Inactiv e 2023 34816 27690 0 1 time Intrad ermal False Tubersol 5 tub. unit/0.1 mL intradermal injection solution [Tuberculin PPD] 0.1mL Intradermal 1 time For PPD 2nd Step Give 2nd Step PPD Day 1 and Read results Day 3 (schedule 7 days after 1st READ) 0.1mL 09/08 Active 2023 13760 22916 0 1 time Intrad ermal False Humalog [...] order For Diabetes 08/25 Inactiv e 2023 01154 65753 9 4 times a day Subcut aneous False Aspirin 325 mg tablet [generic] 325 By Mouth Twice daily For Anticoagulati on 325 09/25 Active 2023 55922 96808 1 Twice daily By Mouth False Ferrous sulfate 325 mg (65 mg iron) tablet [generic] 325 By Mouth Once daily For anemia 325 2023 Active 2023 67606 29652 5 Once daily By Mouth False Linezolid 600 mg tablet [generic] 600 mg By Mouth Every 12 hours For MRSA INFECTION L BKA 600 mg 08/25 Inactiv e 2023 61952 79763 1 Every 12 hours By Mouth False Cefpodoxime 200 mg tablet [generic] 400 mg By Mouth Twice daily For MRSA INFECTION L BKA 400 mg 08/25 Inactiv e 2023 01296 74009 0 Twice daily By Mouth False Coenzyme Q10 100 mg tablet [generic] 100 mg By Mouth Once daily For SUPP 100 mg 2023 Active 2023 78534 75909 0 Once daily By Mouth False Levothyroxi ne 50 mcg tablet [generic] 50mcg By Mouth Once daily For hypothyroidis m 50mcg 2023 Active 2023 24948 85078 0 Once daily By Mouth False One A Day Men Complete 240 mcg-25 mcg-300 mcg tablet 1 tab By Mouth Once daily For supplement 1 tab 2023 Active 2023 35505 64732 1 Once daily By Mouth False Cholecalcif adalberto (vitamin D3) 50 mcg (2,000 unit) tablet [generic] 1 TAB By Mouth Once daily For SUPP 1 TAB 2023 Active 2023 79728 60125 1 Once daily By Mouth False Cetirizine 10 mg tablet [generic] 1 TAB By Mouth At bedtime For Allergies 1 TAB 2023 Active 2023 34790 77610 0 At bedtime By Mouth False Timolol maleate 0.25 % eye drops [generic] 1 drop Both Eyes Twice daily For glaucoma 1 drop 2023 Active 2023 73818 80941 5 Twice daily Both Eyes False Alendronate 35 mg tablet [generic] 35mg By Mouth Every week For SIADH 35mg 2023 Active 2023 01259 41649 5 Every week By Mouth False Lantus Solostar U-100 Insulin 100 unit/mL (3 mL) subcutaneou s pen 18 units Subcutaneous Every morning For DIABETES 18 units 08/25 Inactiv e 2023 93318 01036 0 Every morning Subcut aneous False Lantus Solostar U-100 Insulin 100 unit/mL (3 mL) subcutaneou s pen 18 units Subcutaneous Every morning For DIABETES 18 units 2023 Active 2023 57715 43338 0 Every morning Subcut aneous False Linezolid 600 mg tablet [generic] 600 mg By Mouth Every 12 hours For MRSA INFECTION L BKA 600 mg 08/28 Inactiv e 2023 79847 73220 1 Every 12 hours By Mouth False [...] one-time order For Diabetes 2023 Active 2023 90493 04530 9 4 times a day Subcut aneous False Cefpodoxime 200 mg tablet [generic] 400 mg By Mouth Twice daily For MRSA INFECTION L BKA 400 mg 08/28 Inactiv e 2023 57541 08251 0 Twice daily By Mouth False Brimonidine 0.1 % eye drops [generic] 1 drop Both Eyes Twice daily For glaucoma 1 drop 2023 Active 2023 64621 39945 0 Twice daily Both Eyes False Metoprolol succinate ER 50 mg tablet,exte nded release 24 hr [generic] 50 mg By Mouth Once daily HOLD FOR SBP <100, or pulse <60 For HTN 50 mg 2023 Active 2023 82386 25876 1 Once daily By Mouth False Amlodipine 2.5 mg tablet [generic] 2.5 mg By Mouth Once daily For HTN 2.5 mg 2023 Active 2023 51185 77896 5 Once daily By Mouth False Docusate sodium 100 mg capsule [generic] 100mg By Mouth Twice daily as needed For constipation HOLD FOR LOOSE STOOLS 100mg 2023 Active 2023 50763 49268 1 Twice daily as needed By Mouth False Atorvastati n 40 mg tablet [generic] 40mg By Mouth Once daily For HDL 40mg 08/26 Inactiv e 2023 13202 04102 5 Once daily By Mouth False Tylenol 325 mg tablet 2 tabs By Mouth Every 4 hours as needed For Pain DO NOT EXCEED 3000 MG APAP/24 Hours 2 tabs 2023 Active 2023 31031 97917 0 Every 4 hours as needed By Mouth False Tylenol 325 mg tablet 2 tabs By Mouth Every 4 hours as needed For Fever >100 DO NOT EXCEED 3000 MG APAP/24 Hours 2 tabs 2023 Active 2023 72460 68697 0 Every 4 hours as needed By Mouth False Dulcolax (bisacodyl) 10 mg rectal suppository One Suppository per rectum PRN if Milk of Magnisia ineffective. Give on day 5 of no BM 1 sup 2023 Active 2023 51368 28104 1 Daily as needed Rectal False Fleet Enema 19 gram-7 gram/118 mL Administer per rectum PRN one time if dulcolax suppository not effective. Give on day 6 of no BM 1 2023 Active 2023 66382 90486 6 Daily as needed Rectal False Dextrose 50 % in water (D50W) intravenous solution [generic] Dextrose 50% evonne 20-50 ml (slow push) Intravenous if Glucagon not effective after 15 minutes. CALL 911 for ED Evaluation. 50% evonne 2023 Active 2023 27397 50273 9 Intrav enous False Glucagon (HCl) Emergency Kit 1 mg solution for injection Administer Glucagon 1 mg Intramuscular if 15 minutes after GLucose Gel is administered Glucose remains less than 70 1 mg 2023 Active 2023 58286 81965 2 Intram uscula r False Glucose Gel 40 % oral gel [Dextrose] PRN If resident is unable to swallow (with or without symptoms) and Glucose results less than 70 give GLucose 40% Gel 1 tube orally - Recheck Glucose 15 minutes after administratio n. 1 tube 2023 Active 2023 67324 05511 8 By Mouth False Milk of Magnesia 400 mg/5 mL oral suspension [Magnesium hydroxide] PRN 30ml By Mouth Daily as needed for constipation one time daily if no BM, on day 4 of no BM (PRN refer to instructions) For Constipation 30 mL 2023 Active 2023 01613 87707 6 Daily as needed By Mouth False Atorvastati n 40 mg tablet [generic] 08/26 Inactiv e 2023 29156 79034 5 Atorvastati n 40 mg tablet [generic] 40mg By Mouth Once daily For HDL 40mg 2023 Active 2023 93301 89464 5 Once daily By Mouth False Insulin aspart (U-100) 100 unit/mL (3 mL) subcutaneou s pen [generic] 15 units Subcutaneous 1 time For dm 15 units 08/26 Inactiv e 2023 29148 16487 5 1 time Subcut aneous False Humalog KwikPen (U-100) Insulin 100 unit/mL subcutaneou s 15 units Subcutaneous 1 time For dm 15 units 08/27 Inactiv e 2023 70302 11195 9 1 time Subcut aneous False Linezolid 600 mg tablet [generic] 600 mg By Mouth Every 12 hours For MRSA INFECTION L BKA 600 mg 09/06 Active 2023 09330 73957 1 Every 12 hours By Mouth False Cefpodoxime 200 mg tablet [generic] 400 mg By Mouth Twice daily For MRSA INFECTION L BKA 400 mg 08/31 Active 2023 33890 27459 0 Twice daily By Mouth False Senna 8.6 mg tablet 8.6 mg By Mouth Once daily For Constipation 8.6 mg 2023 Active 2023 27204 03136 1 Once daily By Mouth False MediHoney HCS 4 1/2in X 4 1/2in bandage Cleanse area with NSS, apply one medihoney hydrocolloid dressing, non adherent dressing, kerlix secure with paper tape daily. For wound stage III 1 2023 Active 2023 94100 90116 1 Once daily Topica l False Problems Code Description Start Date End Date Status D64.9 Anemia, unspecified 08/25/2024 Activ e I25.10 Atherosclerotic hear t disease of [place] coronary artery without angina pectoris 08/25/2024 [...] weight Temperature SpO2 Blood Sugar Pulse Respirations 46933 8 67.00 mm[Hg] - Sitting 145.00 mm[Hg] - Sitting 98.50 Forehead Scan 96.00 % 81.00/ min 16.00/min 35794 004 53841 2 67.00 mm[Hg] - Sitting 145.00 mm[Hg] - Sitting 98.50 Tympanic 81.00/ min 16.00/min 11939 004 66193 5 56.00 mm[Hg] - Sitting 142.00 mm[Hg] - Sitting 136.40 NI 100.20 Tympanic 96.00 % 92.00/ min 18.00/min 16559 004 18917 6 14315 004 12914 4 143.00 mg/dL 80229 0 97.80 Tympanic 005 55841 7 60.00 mm[Hg] - Sitting 140.00 mm[Hg] - Sitting 98.00 Tympanic 84.00/ min 18.00/min 29104 005 90864 0 63.00 mm[Hg] - Sitting 141.00 mm[Hg] - Sitting 98.20 Tympanic 92.00 % 63.00/ min 16.00/min 59909 005 71676 8 69.00 mm[Hg] - Sitting 106.00 mm[Hg] - Sitting 97.20 Tympanic 13794 005 94471 7 69.00/ min 16.00/min 28326 005 47723 3 69.00 mm[Hg] - Sitting 106.00 mm[Hg] - Sitting 98.20 Tympanic 69.00/ min 16.00/min 95422 005 12399 1 367.00 mg/dL 90004 005 45484 2 97.20 Tympanic 13131 005 96666 4 97.20 Tympanic 79041 005 29363 0 69.00 mm[Hg] - Sitting 106.00 mm[Hg] - Sitting 69.00/ min 70910 005 97677 3 452.00 mg/dL 97484 005 94421 3 452.00 mg/dL 24784 005 06774 5 352.00 mg/dL 51729 005 21316 3 352.00 mg/dL 86697 005 36764 7 98.20 Tympanic 33143 005 99497 3 101.00 mg/dL 58265 005 26374 8 101.00 mg/dL 63861 006 11182 4 66.00 mm[Hg] - Sitting 107.00 mm[Hg] - Sitting 98.00 Tympanic 66.00/ min 18.00/min 88636 006 91867 0 62.00 mm[Hg] - Sitting 162.00 mm[Hg] - Sitting 98.20 Tympanic 96.00 % 60.00/ min 16.00/min 31660 006 85192 4 62.00 mm[Hg] - Sitting 162.00 mm[Hg] - Sitting 98.00 Tympanic 70.00/ min 18.00/min 93707 006 79399 8 62.00 mm[Hg] - Sitting 162.00 mm[Hg] - Sitting 98.20 Tympanic 70.00/ min 18.00/min 37906 006 08392 2 66.00 mm[Hg] - Sitting 132.00 mm[Hg] - Sitting 98.60 Tympanic 74.00/ min 16.00/min 89995 006 49864 5 159.00 mg/dL 95653 006 76191 1 159.00 mg/dL 61877 006 43114 8 98.00 Tympanic 97893 006 60672 2 62.00 mm[Hg] - Sitting 162.00 mm[Hg] - Sitting 70.00/ min 12092 006 08363 7 264.00 mg/dL 36240 006 83002 7 264.00 mg/dL 82869 006 50197 4 196.00 mg/dL 27786 006 50213 3 98.20 Tympanic 45565 006 58618 6 271.00 mg/dL 83219 007 49560 3 97.20 Tympanic 49030 007 34619 2 63.00 mm[Hg] - Sitting 132.00 mm[Hg] - Sitting 98.50 Tympanic 94.00 % 66.00/ min 16.00/min 84166 007 13916 5 188.00 mg/dL 76950 007 59814 2 188.00 mg/dL 82381 007 88306 2 188.00 mg/dL 93179 007 42975 7 97.20 Tympanic 25955 007 47706 6 97.20 Tympanic 34642 007 89149 5 67.00 mm[Hg] - Sitting 152.00 mm[Hg] - Sitting 68.00/ min 49796 007 79859 0 141.00 mg/dL 47947 007 75951 3 141.00 mg/dL 02633 007 90818 1 366.00 mg/dL 01216 007 33887 7 366.00 mg/dL 48490 007 33715 7 98.00 Tympanic 03564 007 08652 6 324.00 mg/dL 81333 007 81511 3 98.00 Tympanic 46069 007 29418 7 324.00 mg/dL 14057 008 66029 0 98.00 Tympanic 94395 008 36805 2 97.90 Tympanic 16249 008 64793 0 98.20 Tympanic 78138 008 31871 0 73.00 mm[Hg] - Sitting 156.00 mm[Hg] - Sitting 98.60 Tympanic 99.00 % 66.00/ min 20.00/min 60128 008 32331 5 137.00 mg/dL 81737 008 56736 7 137.00 mg/dL 07112 008 08225 2 97.90 Tympanic 40934 008 08265 1 137.00 mg/dL 88085 008 17554 8 97.90 Tympanic 50751 008 44105 5 67.00 mm[Hg] - Sitting 124.00 /min 79170 008 56321 6 212.00 mg/dL 27681 008 75445 6 212.00 mg/dL 24844 008 03648 9 317.00 mg/dL 70734 008 18159 4 317.00 mg/dL 63938 008 85378 8 252.00 mg/dL 58853 008 44821 0 98.70 Tympanic 65067 008 16229 7 252.00 mg/dL 86699 008 95856 3 98.70 Tympanic 30707 009 86560 9 98.70 Tympanic 01397 009 03077 1 255.00 mg/dL 60056 009 73919 4 255.00 mg/dL 32151 009 83198 5 98.20 Tympanic 21255 009 73072 0 255.00 mg/dL 79153 009 77936 0 98.20 Tympanic 65068 009 59882 4 63.00 mm[Hg] - Lying Down 102.00 mm[Hg] - Lying Down 58.00/ min
--- OUTSIDE RECORDS SUMMARY | 2024-10-03 11:19 | External Medical Summary | Continuity Of Care Document ---
Author Name Unknown Address [address] [address] Organization [facility] () Care Team Providers Care Cardiac Nurse Practitioner Name Role Phone DO Machado Amy Primary Care Provider [phone] Allergies Allergy Reaction Start Date End Date [...] 3 0.1 mL 08/29 Inactiv e 2023 31526 51520 0 1 time Intrad ermal False Tubersol 5 tub. unit/0.1 mL intradermal injection solution [Tuberculin PPD] 0.1mL Intradermal 1 time For PPD 2nd Step Give 2nd Step PPD Day 1 and Read results Day 3 (schedule 7 days after 1st READ) 0.1mL 09/08 Active 2023 85339 74309 0 1 time Intrad ermal False Humalog [...] order For Diabetes 08/25 Inactiv e 2023 81684 43863 9 4 times a day Subcut aneous False Aspirin 325 mg tablet [generic] 325 By Mouth Twice daily For Anticoagulati on 325 09/25 Active 2023 50584 22923 1 Twice daily By Mouth False Ferrous sulfate 325 mg (65 mg iron) tablet [generic] 325 By Mouth Once daily For anemia 325 2023 Active 2023 68462 06895 5 Once daily By Mouth False Linezolid 600 mg tablet [generic] 600 mg By Mouth Every 12 hours For MRSA INFECTION L BKA 600 mg 08/25 Inactiv e 2023 04997 62591 1 Every 12 hours By Mouth False Cefpodoxime 200 mg tablet [generic] 400 mg By Mouth Twice daily For MRSA INFECTION L BKA 400 mg 08/25 Inactiv e 2023 94314 85400 0 Twice daily By Mouth False Coenzyme Q10 100 mg tablet [generic] 100 mg By Mouth Once daily For SUPP 100 mg 2023 Active 2023 86672 99092 0 Once daily By Mouth False Levothyroxi ne 50 mcg tablet [generic] 50mcg By Mouth Once daily For hypothyroidis m 50mcg 2023 Active 2023 97644 28628 0 Once daily By Mouth False One A Day Men Complete 240 mcg-25 mcg-300 mcg tablet 1 tab By Mouth Once daily For supplement 1 tab 2023 Active 2023 56195 15297 1 Once daily By Mouth False Cholecalcif adalberto (vitamin D3) 50 mcg (2,000 unit) tablet [generic] 1 TAB By Mouth Once daily For SUPP 1 TAB 2023 Active 2023 37719 09050 1 Once daily By Mouth False Cetirizine 10 mg tablet [generic] 1 TAB By Mouth At bedtime For Allergies 1 TAB 2023 Active 2023 18360 30921 0 At bedtime By Mouth False Timolol maleate 0.25 % eye drops [generic] 1 drop Both Eyes Twice daily For glaucoma 1 drop 2023 Active 2023 14919 59942 5 Twice daily Both Eyes False Alendronate 35 mg tablet [generic] 35mg By Mouth Every week For SIADH 35mg 2023 Active 2023 80781 42860 5 Every week By Mouth False Lantus Solostar U-100 Insulin 100 unit/mL (3 mL) subcutaneou s pen 18 units Subcutaneous Every morning For DIABETES 18 units 08/25 Inactiv e 2023 53031 92008 0 Every morning Subcut aneous False Lantus Solostar U-100 Insulin 100 unit/mL (3 mL) subcutaneou s pen 18 units Subcutaneous Every morning For DIABETES 18 units 2023 Active 2023 23230 20228 0 Every morning Subcut aneous False Linezolid 600 mg tablet [generic] 600 mg By Mouth Every 12 hours For MRSA INFECTION L BKA 600 mg 08/28 Inactiv e 2023 78206 69056 1 Every 12 hours By Mouth False [...] one-time order For Diabetes 2023 Active 2023 17565 00632 9 4 times a day Subcut aneous False Cefpodoxime 200 mg tablet [generic] 400 mg By Mouth Twice daily For MRSA INFECTION L BKA 400 mg 08/28 Inactiv e 2023 17009 34281 0 Twice daily By Mouth False Brimonidine 0.1 % eye drops [generic] 1 drop Both Eyes Twice daily For glaucoma 1 drop 2023 Active 2023 35677 90533 0 Twice daily Both Eyes False Metoprolol succinate ER 50 mg tablet,exte nded release 24 hr [generic] 50 mg By Mouth Once daily HOLD FOR SBP <100, or pulse <60 For HTN 50 mg 2023 Active 2023 66515 55203 1 Once daily By Mouth False Amlodipine 2.5 mg tablet [generic] 2.5 mg By Mouth Once daily For HTN 2.5 mg 2023 Active 2023 28017 99388 5 Once daily By Mouth False Docusate sodium 100 mg capsule [generic] 100mg By Mouth Twice daily as needed For constipation HOLD FOR LOOSE STOOLS 100mg 2023 Active 2023 32941 50038 1 Twice daily as needed By Mouth False Atorvastati n 40 mg tablet [generic] 40mg By Mouth Once daily For HDL 40mg 08/26 Inactiv e 2023 21734 98145 5 Once daily By Mouth False Tylenol 325 mg tablet 2 tabs By Mouth Every 4 hours as needed For Pain DO NOT EXCEED 3000 MG APAP/24 Hours 2 tabs 2023 Active 2023 22509 90334 0 Every 4 hours as needed By Mouth False Tylenol 325 mg tablet 2 tabs By Mouth Every 4 hours as needed For Fever >100 DO NOT EXCEED 3000 MG APAP/24 Hours 2 tabs 2023 Active 2023 97438 26670 0 Every 4 hours as needed By Mouth False Dulcolax (bisacodyl) 10 mg rectal suppository One Suppository per rectum PRN if Milk of Magnisia ineffective. Give on day 5 of no BM 1 sup 2023 Active 2023 22239 08119 1 Daily as needed Rectal False Fleet Enema 19 gram-7 gram/118 mL Administer per rectum PRN one time if dulcolax suppository not effective. Give on day 6 of no BM 1 2023 Active 2023 02107 34674 6 Daily as needed Rectal False Dextrose 50 % in water (D50W) intravenous solution [generic] Dextrose 50% evonne 20-50 ml (slow push) Intravenous if Glucagon not effective after 15 minutes. CALL 911 for ED Evaluation. 50% evonne 2023 Active 2023 99660 31092 9 Intrav enous False Glucagon (HCl) Emergency Kit 1 mg solution for injection Administer Glucagon 1 mg Intramuscular if 15 minutes after GLucose Gel is administered Glucose remains less than 70 1 mg 2023 Active 2023 66038 95648 2 Intram uscula r False Glucose Gel 40 % oral gel [Dextrose] PRN If resident is unable to swallow (with or without symptoms) and Glucose results less than 70 give GLucose 40% Gel 1 tube orally - Recheck Glucose 15 minutes after administratio n. 1 tube 2023 Active 2023 07068 79911 8 By Mouth False Milk of Magnesia 400 mg/5 mL oral suspension [Magnesium hydroxide] PRN 30ml By Mouth Daily as needed for constipation one time daily if no BM, on day 4 of no BM (PRN refer to instructions) For Constipation 30 mL 2023 Active 2023 97787 41747 6 Daily as needed By Mouth False Atorvastati n 40 mg tablet [generic] 08/26 Inactiv e 2023 22957 83505 5 Atorvastati n 40 mg tablet [generic] 40mg By Mouth Once daily For HDL 40mg 2023 Active 2023 44825 74833 5 Once daily By Mouth False Insulin aspart (U-100) 100 unit/mL (3 mL) subcutaneou s pen [generic] 15 units Subcutaneous 1 time For dm 15 units 08/26 Inactiv e 2023 37844 45408 5 1 time Subcut aneous False Humalog KwikPen (U-100) Insulin 100 unit/mL subcutaneou s 15 units Subcutaneous 1 time For dm 15 units 08/27 Inactiv e 2023 33892 65625 9 1 time Subcut aneous False Linezolid 600 mg tablet [generic] 600 mg By Mouth Every 12 hours For MRSA INFECTION L BKA 600 mg 09/06 Active 2023 71038 70737 1 Every 12 hours By Mouth False Cefpodoxime 200 mg tablet [generic] 400 mg By Mouth Twice daily For MRSA INFECTION L BKA 400 mg 08/31 Active 2023 51282 14591 0 Twice daily By Mouth False Senna 8.6 mg tablet 8.6 mg By Mouth Once daily For Constipation 8.6 mg 2023 Active 2023 69756 29761 1 Once daily By Mouth False MediHoney HCS 4 1/2in X 4 1/2in bandage Cleanse area with NSS, apply one medihoney hydrocolloid dressing, non adherent dressing, kerlix secure with paper tape daily. For wound stage III 1 2023 Active 2023 99705 94431 1 Once daily Topica l False Problems Code Description Start Date End Date Status D64.9 Anemia, unspecified 08/25/2024 Activ e I25.10 Atherosclerotic hear t disease of [place] coronary artery without angina pectoris 08/25/2024 Active [...] weight Temperature SpO2 Blood Sugar Pulse Respirations 12715 8 67.00 mm[Hg] - Sitting 145.00 mm[Hg] - Sitting 98.50 Forehead Scan 96.00 % 81.00/ min 16.00/min 30306 004 20944 2 67.00 mm[Hg] - Sitting 145.00 mm[Hg] - Sitting 98.50 Tympanic 81.00/ min 16.00/min 89528 004 98639 5 56.00 mm[Hg] - Sitting 142.00 mm[Hg] - Sitting 136.40 NI 100.20 Tympanic 96.00 % 92.00/ min 18.00/min 05877 004 28525 6 49975 004 27924 4 143.00 mg/dL 45110 0 97.80 Tympanic 005 07519 7 60.00 mm[Hg] - Sitting 140.00 mm[Hg] - Sitting 98.00 Tympanic 84.00/ min 18.00/min 00333 005 95019 0 63.00 mm[Hg] - Sitting 141.00 mm[Hg] - Sitting 98.20 Tympanic 92.00 % 63.00/ min 16.00/min 54541 005 42188 8 69.00 mm[Hg] - Sitting 106.00 mm[Hg] - Sitting 97.20 Tympanic 73328 005 91930 7 69.00/ min 16.00/min 24684 005 09292 3 69.00 mm[Hg] - Sitting 106.00 mm[Hg] - Sitting 98.20 Tympanic 69.00/ min 16.00/min 83224 005 16371 1 367.00 mg/dL 93469 005 47675 2 97.20 Tympanic 54614 005 63932 4 97.20 Tympanic 74630 005 02735 0 69.00 mm[Hg] - Sitting 106.00 mm[Hg] - Sitting 69.00/ min 60421 005 11450 3 452.00 mg/dL 05662 005 82256 3 452.00 mg/dL 69646 005 61910 5 352.00 mg/dL 51692 005 29364 3 352.00 mg/dL 35176 005 90189 7 98.20 Tympanic 01677 005 85033 3 101.00 mg/dL 62145 005 38022 8 101.00 mg/dL 21720 006 00514 4 66.00 mm[Hg] - Sitting 107.00 mm[Hg] - Sitting 98.00 Tympanic 66.00/ min 18.00/min 58450 006 04760 0 62.00 mm[Hg] - Sitting 162.00 mm[Hg] - Sitting 98.20 Tympanic 96.00 % 60.00/ min 16.00/min 35036 006 11671 4 62.00 mm[Hg] - Sitting 162.00 mm[Hg] - Sitting 98.00 Tympanic 70.00/ min 18.00/min 34020 006 40437 8 62.00 mm[Hg] - Sitting 162.00 mm[Hg] - Sitting 98.20 Tympanic 70.00/ min 18.00/min 08019 006 89283 2 66.00 mm[Hg] - Sitting 132.00 mm[Hg] - Sitting 98.60 Tympanic 74.00/ min 16.00/min 28825 006 24457 5 159.00 mg/dL 60653 006 66829 1 159.00 mg/dL 75136 006 84690 8 98.00 Tympanic 68744 006 37365 2 62.00 mm[Hg] - Sitting 162.00 mm[Hg] - Sitting 70.00/ min 68628 006 16974 7 264.00 mg/dL 41279 006 19000 7 264.00 mg/dL 44160 006 52222 4 196.00 mg/dL 36432 006 54514 3 98.20 Tympanic 67697 006 37053 6 271.00 mg/dL 44790 007 37594 3 97.20 Tympanic 19125 007 79465 2 63.00 mm[Hg] - Sitting 132.00 mm[Hg] - Sitting 98.50 Tympanic 94.00 % 66.00/ min 16.00/min 07967 007 36901 5 188.00 mg/dL 92234 007 38122 2 188.00 mg/dL 67286 007 86218 2 188.00 mg/dL 72226 007 02683 7 97.20 Tympanic 26611 007 90882 6 97.20 Tympanic 33095 007 11587 5 67.00 mm[Hg] - Sitting 152.00 mm[Hg] - Sitting 68.00/ min 48678 007 41021 0 141.00 mg/dL 82907 007 92568 3 141.00 mg/dL 64726 007 26826 1 366.00 mg/dL 99373 007 80841 7 366.00 mg/dL 12506 007 05797 7 98.00 Tympanic 21751 007 32543 6 324.00 mg/dL 20103 007 06614 3 98.00 Tympanic 62478 007 24399 7 324.00 mg/dL 01581 008 26248 0 98.00 Tympanic 08184 008 30288 2 97.90 Tympanic 78334 008 14527 0 98.20 Tympanic 33648 008 79212 0 73.00 mm[Hg] - Sitting 156.00 mm[Hg] - Sitting 98.60 Tympanic 99.00 % 66.00/ min 20.00/min 45980 008 85758 5 137.00 mg/dL 71762 008 51313 7 137.00 mg/dL 03312 008 40204 2 97.90 Tympanic 73237 008 96941 1 137.00 mg/dL 79305 008 63031 8 97.90 Tympanic 14616 008 02245 5 67.00 mm[Hg] - Sitting 124.00 /min 73272 008 03955 6 212.00 mg/dL 21292 008 41373 6 212.00 mg/dL 87299 008 33922 9 317.00 mg/dL 52349 008 26453 4 317.00 mg/dL 46921 008 92497 8 252.00 mg/dL 34319 008 68531 0 98.70 Tympanic 26629 008 65852 7 252.00 mg/dL 26935 008 32747 3 98.70 Tympanic 14585 009 54516 9 98.70 Tympanic 35764 009 19135 1 255.00 mg/dL 35419 009 05208 4 255.00 mg/dL 46134 009 69820 5 98.20 Tympanic 97676 009 49838 0 255.00 mg/dL 76733 009 62310 0 98.20 Tympanic 60485 009 77911 4 63.00 mm[Hg] - Lying Down 102.00 mm[Hg] - Lying Down 58.00/ min 77202 009 43839 0 167.00 mg/dL 76095 009 71133 1 167.00 mg/dL
--- OUTSIDE RECORDS SUMMARY | 2024-10-03 11:19 | External Medical Summary | Continuity Of Care Document ---
Author Name Unknown Address [address] [address] Organization [facility] () Care Team Providers Care Deckhand Name Role Phone DO Machado Amy Primary Care Provider [phone] Allergies Allergy Reaction Start Date End Date [...] 3 0.1 mL 08/29 Inactiv e 2023 26848 61572 0 1 time Intrad ermal False Tubersol 5 tub. unit/0.1 mL intradermal injection solution [Tuberculin PPD] 0.1mL Intradermal 1 time For PPD 2nd Step Give 2nd Step PPD Day 1 and Read results Day 3 (schedule 7 days after 1st READ) 0.1mL 09/08 Active 2023 38406 42207 0 1 time Intrad ermal False Humalog [...] order For Diabetes 08/25 Inactiv e 2023 09105 50688 9 4 times a day Subcut aneous False Aspirin 325 mg tablet [generic] 325 By Mouth Twice daily For Anticoagulati on 325 09/25 Active 2023 77695 15348 1 Twice daily By Mouth False Ferrous sulfate 325 mg (65 mg iron) tablet [generic] 325 By Mouth Once daily For anemia 325 2023 Active 2023 16030 43141 5 Once daily By Mouth False Linezolid 600 mg tablet [generic] 600 mg By Mouth Every 12 hours For MRSA INFECTION L BKA 600 mg 08/25 Inactiv e 2023 54746 25309 1 Every 12 hours By Mouth False Cefpodoxime 200 mg tablet [generic] 400 mg By Mouth Twice daily For MRSA INFECTION L BKA 400 mg 08/25 Inactiv e 2023 97726 55469 0 Twice daily By Mouth False Coenzyme Q10 100 mg tablet [generic] 100 mg By Mouth Once daily For SUPP 100 mg 2023 Active 2023 22957 26612 0 Once daily By Mouth False Levothyroxi ne 50 mcg tablet [generic] 50mcg By Mouth Once daily For hypothyroidis m 50mcg 2023 Active 2023 87801 89087 0 Once daily By Mouth False One A Day Men Complete 240 mcg-25 mcg-300 mcg tablet 1 tab By Mouth Once daily For supplement 1 tab 2023 Active 2023 98004 98877 1 Once daily By Mouth False Cholecalcif adalberto (vitamin D3) 50 mcg (2,000 unit) tablet [generic] 1 TAB By Mouth Once daily For SUPP 1 TAB 2023 Active 2023 16079 29940 1 Once daily By Mouth False Cetirizine 10 mg tablet [generic] 1 TAB By Mouth At bedtime For Allergies 1 TAB 2023 Active 2023 20380 41182 0 At bedtime By Mouth False Timolol maleate 0.25 % eye drops [generic] 1 drop Both Eyes Twice daily For glaucoma 1 drop 2023 Active 2023 91135 77153 5 Twice daily Both Eyes False Alendronate 35 mg tablet [generic] 35mg By Mouth Every week For SIADH 35mg 2023 Active 2023 98879 38598 5 Every week By Mouth False Lantus Solostar U-100 Insulin 100 unit/mL (3 mL) subcutaneou s pen 18 units Subcutaneous Every morning For DIABETES 18 units 08/25 Inactiv e 2023 85380 61379 0 Every morning Subcut aneous False Lantus Solostar U-100 Insulin 100 unit/mL (3 mL) subcutaneou s pen 18 units Subcutaneous Every morning For DIABETES 18 units 2023 Active 2023 48078 89660 0 Every morning Subcut aneous False Linezolid 600 mg tablet [generic] 600 mg By Mouth Every 12 hours For MRSA INFECTION L BKA 600 mg 08/28 Inactiv e 2023 90988 42056 1 Every 12 hours By Mouth False [...] one-time order For Diabetes 2023 Active 2023 64225 92813 9 4 times a day Subcut aneous False Cefpodoxime 200 mg tablet [generic] 400 mg By Mouth Twice daily For MRSA INFECTION L BKA 400 mg 08/28 Inactiv e 2023 93379 25760 0 Twice daily By Mouth False Brimonidine 0.1 % eye drops [generic] 1 drop Both Eyes Twice daily For glaucoma 1 drop 2023 Active 2023 89646 70399 0 Twice daily Both Eyes False Metoprolol succinate ER 50 mg tablet,exte nded release 24 hr [generic] 50 mg By Mouth Once daily HOLD FOR SBP <100, or pulse <60 For HTN 50 mg 2023 Active 2023 41884 53076 1 Once daily By Mouth False Amlodipine 2.5 mg tablet [generic] 2.5 mg By Mouth Once daily For HTN 2.5 mg 2023 Active 2023 61746 84090 5 Once daily By Mouth False Docusate sodium 100 mg capsule [generic] 100mg By Mouth Twice daily as needed For constipation HOLD FOR LOOSE STOOLS 100mg 2023 Active 2023 75018 48402 1 Twice daily as needed By Mouth False Atorvastati n 40 mg tablet [generic] 40mg By Mouth Once daily For HDL 40mg 08/26 Inactiv e 2023 46316 84495 5 Once daily By Mouth False Tylenol 325 mg tablet 2 tabs By Mouth Every 4 hours as needed For Pain DO NOT EXCEED 3000 MG APAP/24 Hours 2 tabs 2023 Active 2023 75461 67590 0 Every 4 hours as needed By Mouth False Tylenol 325 mg tablet 2 tabs By Mouth Every 4 hours as needed For Fever >100 DO NOT EXCEED 3000 MG APAP/24 Hours 2 tabs 2023 Active 2023 79806 28619 0 Every 4 hours as needed By Mouth False Dulcolax (bisacodyl) 10 mg rectal suppository One Suppository per rectum PRN if Milk of Magnisia ineffective. Give on day 5 of no BM 1 sup 2023 Active 2023 91829 57391 1 Daily as needed Rectal False Fleet Enema 19 gram-7 gram/118 mL Administer per rectum PRN one time if dulcolax suppository not effective. Give on day 6 of no BM 1 2023 Active 2023 72989 29557 6 Daily as needed Rectal False Dextrose 50 % in water (D50W) intravenous solution [generic] Dextrose 50% evonne 20-50 ml (slow push) Intravenous if Glucagon not effective after 15 minutes. CALL 911 for ED Evaluation. 50% evonne 2023 Active 2023 72998 35423 9 Intrav enous False Glucagon (HCl) Emergency Kit 1 mg solution for injection Administer Glucagon 1 mg Intramuscular if 15 minutes after GLucose Gel is administered Glucose remains less than 70 1 mg 2023 Active 2023 04442 46975 2 Intram uscula r False Glucose Gel 40 % oral gel [Dextrose] PRN If resident is unable to swallow (with or without symptoms) and Glucose results less than 70 give GLucose 40% Gel 1 tube orally - Recheck Glucose 15 minutes after administratio n. 1 tube 2023 Active 2023 63804 87627 8 By Mouth False Milk of Magnesia 400 mg/5 mL oral suspension [Magnesium hydroxide] PRN 30ml By Mouth Daily as needed for constipation one time daily if no BM, on day 4 of no BM (PRN refer to instructions) For Constipation 30 mL 2023 Active 2023 15568 55206 6 Daily as needed By Mouth False Atorvastati n 40 mg tablet [generic] 08/26 Inactiv e 2023 76063 74585 5 Atorvastati n 40 mg tablet [generic] 40mg By Mouth Once daily For HDL 40mg 2023 Active 2023 04306 71354 5 Once daily By Mouth False Insulin aspart (U-100) 100 unit/mL (3 mL) subcutaneou s pen [generic] 15 units Subcutaneous 1 time For dm 15 units 08/26 Inactiv e 2023 73977 81346 5 1 time Subcut aneous False Humalog KwikPen (U-100) Insulin 100 unit/mL subcutaneou s 15 units Subcutaneous 1 time For dm 15 units 08/27 Inactiv e 2023 39692 56902 9 1 time Subcut aneous False Linezolid 600 mg tablet [generic] 600 mg By Mouth Every 12 hours For MRSA INFECTION L BKA 600 mg 09/06 Active 2023 22801 07483 1 Every 12 hours By Mouth False Cefpodoxime 200 mg tablet [generic] 400 mg By Mouth Twice daily For MRSA INFECTION L BKA 400 mg 08/31 Active 2023 54175 05862 0 Twice daily By Mouth False Senna 8.6 mg tablet 8.6 mg By Mouth Once daily For Constipation 8.6 mg 2023 Active 2023 50325 69925 1 Once daily By Mouth False MediHoney HCS 4 1/2in X 4 1/2in bandage Cleanse area with NSS, apply one medihoney hydrocolloid dressing, non adherent dressing, kerlix secure with paper tape daily. For wound stage III 1 2023 Active 2023 57533 29059 1 Once daily Topica l False Problems Code Description Start Date End Date Status D64.9 Anemia, unspecified 08/25/2024 Activ e I25.10 Atherosclerotic hear t disease of [place] coronary artery without angina pectoris 08/25/2024 Active [...] weight Temperature SpO2 Blood Sugar Pulse Respirations 20304 8 67.00 mm[Hg] - Sitting 145.00 mm[Hg] - Sitting 98.50 Forehead Scan 96.00 % 81.00/ min 16.00/min 86047 004 55550 2 67.00 mm[Hg] - Sitting 145.00 mm[Hg] - Sitting 98.50 Tympanic 81.00/ min 16.00/min 86770 004 21011 5 56.00 mm[Hg] - Sitting 142.00 mm[Hg] - Sitting 136.40 NI 100.20 Tympanic 96.00 % 92.00/ min 18.00/min 95598 004 13533 6 71782 004 59563 4 143.00 mg/dL 71847 0 97.80 Tympanic 005 04537 7 60.00 mm[Hg] - Sitting 140.00 mm[Hg] - Sitting 98.00 Tympanic 84.00/ min 18.00/min 73120 005 77686 0 63.00 mm[Hg] - Sitting 141.00 mm[Hg] - Sitting 98.20 Tympanic 92.00 % 63.00/ min 16.00/min 65571 005 95983 8 69.00 mm[Hg] - Sitting 106.00 mm[Hg] - Sitting 97.20 Tympanic 39163 005 25798 7 69.00/ min 16.00/min 58880 005 81800 3 69.00 mm[Hg] - Sitting 106.00 mm[Hg] - Sitting 98.20 Tympanic 69.00/ min 16.00/min 68637 005 27586 1 367.00 mg/dL 65184 005 21759 2 97.20 Tympanic 45216 005 90836 4 97.20 Tympanic 00969 005 75410 0 69.00 mm[Hg] - Sitting 106.00 mm[Hg] - Sitting 69.00/ min 01812 005 80584 3 452.00 mg/dL 12070 005 03782 3 452.00 mg/dL 62055 005 96849 5 352.00 mg/dL 93076 005 00215 3 352.00 mg/dL 63287 005 19912 7 98.20 Tympanic 59853 005 50646 3 101.00 mg/dL 15022 005 60300 8 101.00 mg/dL 40242 006 45577 4 66.00 mm[Hg] - Sitting 107.00 mm[Hg] - Sitting 98.00 Tympanic 66.00/ min 18.00/min 53943 006 50690 0 62.00 mm[Hg] - Sitting 162.00 mm[Hg] - Sitting 98.20 Tympanic 96.00 % 60.00/ min 16.00/min 62337 006 99863 4 62.00 mm[Hg] - Sitting 162.00 mm[Hg] - Sitting 98.00 Tympanic 70.00/ min 18.00/min 45020 006 90824 8 62.00 mm[Hg] - Sitting 162.00 mm[Hg] - Sitting 98.20 Tympanic 70.00/ min 18.00/min 20501 006 06726 2 66.00 mm[Hg] - Sitting 132.00 mm[Hg] - Sitting 98.60 Tympanic 74.00/ min 16.00/min 43514 006 52057 5 159.00 mg/dL 68219 006 13200 1 159.00 mg/dL 93509 006 32955 8 98.00 Tympanic 02679 006 95059 2 62.00 mm[Hg] - Sitting 162.00 mm[Hg] - Sitting 70.00/ min 65938 006 82849 7 264.00 mg/dL 35755 006 73267 7 264.00 mg/dL 66523 006 72889 4 196.00 mg/dL 93797 006 31900 3 98.20 Tympanic 23664 006 17058 6 271.00 mg/dL 22660 007 06599 3 97.20 Tympanic 91496 007 73545 2 63.00 mm[Hg] - Sitting 132.00 mm[Hg] - Sitting 98.50 Tympanic 94.00 % 66.00/ min 16.00/min 79437 007 64285 5 188.00 mg/dL 67584 007 24572 2 188.00 mg/dL 39548 007 62479 2 188.00 mg/dL 33781 007 02472 7 97.20 Tympanic 85279 007 59027 6 97.20 Tympanic 67099 007 83093 5 67.00 mm[Hg] - Sitting 152.00 mm[Hg] - Sitting 68.00/ min 84004 007 87157 0 141.00 mg/dL 84052 007 23907 3 141.00 mg/dL 81433 007 64604 1 366.00 mg/dL 06739 007 57061 7 366.00 mg/dL 53819 007 65493 7 98.00 Tympanic 49969 007 88320 6 324.00 mg/dL 55294 007 95862 3 98.00 Tympanic 82369 007 37551 7 324.00 mg/dL 30772 008 39762 0 98.00 Tympanic 12734 008 25307 2 97.90 Tympanic 34711 008 91941 0 98.20 Tympanic 21763 008 85659 0 73.00 mm[Hg] - Sitting 156.00 mm[Hg] - Sitting 98.60 Tympanic 99.00 % 66.00/ min 20.00/min 92244 008 28562 5 137.00 mg/dL 31462 008 93445 7 137.00 mg/dL 43847 008 16664 2 97.90 Tympanic 72849 008 00622 1 137.00 mg/dL 21507 008 01797 8 97.90 Tympanic 87957 008 72601 5 67.00 mm[Hg] - Sitting 124.00 /min 68498 008 48816 6 212.00 mg/dL 18703 008 89947 6 212.00 mg/dL 82239 008 66063 9 317.00 mg/dL 93397 008 56753 4 317.00 mg/dL 25387 008 66955 8 252.00 mg/dL 37458 008 65935 0 98.70 Tympanic 09399 008 98230 7 252.00 mg/dL 88227 008 86532 3 98.70 Tympanic 63558 009 38404 9 98.70 Tympanic 39084 009 27840 1 255.00 mg/dL 35683 009 27181 4 255.00 mg/dL 79199 009 64180 5 98.20 Tympanic 37359 009 57356 0 255.00 mg/dL 01994 009 29990 0 98.20 Tympanic 10602 009 67493 4 63.00 mm[Hg] - Lying Down 102.00 mm[Hg] - Lying Down 58.00/ min 26887 009 98918 0 167.00 mg/dL 60719 009 29696 1 167.00 mg/dL
--- OUTSIDE RECORDS SUMMARY | 2024-10-03 11:19 | External Medical Summary | Continuity Of Care Document ---
Author Name Unknown Address [address] [address] Organization [facility] () Care Team Providers Care Warehouse Attendant Name Role Phone DO Machado Amy Primary Care Provider [phone] Allergies Allergy Reaction Start Date End Date [...] 3 0.1 mL 08/29 Inactiv e 2023 35861 35152 0 1 time Intrad ermal False Tubersol 5 tub. unit/0.1 mL intradermal injection solution [Tuberculin PPD] 0.1mL Intradermal 1 time For PPD 2nd Step Give 2nd Step PPD Day 1 and Read results Day 3 (schedule 7 days after 1st READ) 0.1mL 09/08 Active 2023 38006 69535 0 1 time Intrad ermal False Humalog [...] order For Diabetes 08/25 Inactiv e 2023 54659 22837 9 4 times a day Subcut aneous False Aspirin 325 mg tablet [generic] 325 By Mouth Twice daily For Anticoagulati on 325 09/25 Active 2023 75132 94780 1 Twice daily By Mouth False Ferrous sulfate 325 mg (65 mg iron) tablet [generic] 325 By Mouth Once daily For anemia 325 2023 Active 2023 75039 75678 5 Once daily By Mouth False Linezolid 600 mg tablet [generic] 600 mg By Mouth Every 12 hours For MRSA INFECTION L BKA 600 mg 08/25 Inactiv e 2023 64264 14486 1 Every 12 hours By Mouth False Cefpodoxime 200 mg tablet [generic] 400 mg By Mouth Twice daily For MRSA INFECTION L BKA 400 mg 08/25 Inactiv e 2023 68817 52490 0 Twice daily By Mouth False Coenzyme Q10 100 mg tablet [generic] 100 mg By Mouth Once daily For SUPP 100 mg 2023 Active 2023 47416 02984 0 Once daily By Mouth False Levothyroxi ne 50 mcg tablet [generic] 50mcg By Mouth Once daily For hypothyroidis m 50mcg 2023 Active 2023 91007 34972 0 Once daily By Mouth False One A Day Men Complete 240 mcg-25 mcg-300 mcg tablet 1 tab By Mouth Once daily For supplement 1 tab 2023 Active 2023 22065 57675 1 Once daily By Mouth False Cholecalcif adalberto (vitamin D3) 50 mcg (2,000 unit) tablet [generic] 1 TAB By Mouth Once daily For SUPP 1 TAB 2023 Active 2023 86598 17110 1 Once daily By Mouth False Cetirizine 10 mg tablet [generic] 1 TAB By Mouth At bedtime For Allergies 1 TAB 2023 Active 2023 89483 91133 0 At bedtime By Mouth False Timolol maleate 0.25 % eye drops [generic] 1 drop Both Eyes Twice daily For glaucoma 1 drop 2023 Active 2023 07659 03746 5 Twice daily Both Eyes False Alendronate 35 mg tablet [generic] 35mg By Mouth Every week For SIADH 35mg 2023 Active 2023 54622 99187 5 Every week By Mouth False Lantus Solostar U-100 Insulin 100 unit/mL (3 mL) subcutaneou s pen 18 units Subcutaneous Every morning For DIABETES 18 units 08/25 Inactiv e 2023 56739 35547 0 Every morning Subcut aneous False Lantus Solostar U-100 Insulin 100 unit/mL (3 mL) subcutaneou s pen 18 units Subcutaneous Every morning For DIABETES 18 units 2023 Active 2023 83066 14736 0 Every morning Subcut aneous False Linezolid 600 mg tablet [generic] 600 mg By Mouth Every 12 hours For MRSA INFECTION L BKA 600 mg 08/28 Inactiv e 2023 55673 33269 1 Every 12 hours By Mouth False [...] one-time order For Diabetes 2023 Active 2023 57201 54886 9 4 times a day Subcut aneous False Cefpodoxime 200 mg tablet [generic] 400 mg By Mouth Twice daily For MRSA INFECTION L BKA 400 mg 08/28 Inactiv e 2023 89473 90056 0 Twice daily By Mouth False Brimonidine 0.1 % eye drops [generic] 1 drop Both Eyes Twice daily For glaucoma 1 drop 2023 Active 2023 45111 78917 0 Twice daily Both Eyes False Metoprolol succinate ER 50 mg tablet,exte nded release 24 hr [generic] 50 mg By Mouth Once daily HOLD FOR SBP <100, or pulse <60 For HTN 50 mg 2023 Active 2023 91622 38681 1 Once daily By Mouth False Amlodipine 2.5 mg tablet [generic] 2.5 mg By Mouth Once daily For HTN 2.5 mg 2023 Active 2023 22447 32762 5 Once daily By Mouth False Docusate sodium 100 mg capsule [generic] 100mg By Mouth Twice daily as needed For constipation HOLD FOR LOOSE STOOLS 100mg 2023 Active 2023 98730 23050 1 Twice daily as needed By Mouth False Atorvastati n 40 mg tablet [generic] 40mg By Mouth Once daily For HDL 40mg 08/26 Inactiv e 2023 71523 33087 5 Once daily By Mouth False Tylenol 325 mg tablet 2 tabs By Mouth Every 4 hours as needed For Pain DO NOT EXCEED 3000 MG APAP/24 Hours 2 tabs 2023 Active 2023 07229 61050 0 Every 4 hours as needed By Mouth False Tylenol 325 mg tablet 2 tabs By Mouth Every 4 hours as needed For Fever >100 DO NOT EXCEED 3000 MG APAP/24 Hours 2 tabs 2023 Active 2023 90409 81760 0 Every 4 hours as needed By Mouth False Dulcolax (bisacodyl) 10 mg rectal suppository One Suppository per rectum PRN if Milk of Magnisia ineffective. Give on day 5 of no BM 1 sup 2023 Active 2023 22116 75391 1 Daily as needed Rectal False Fleet Enema 19 gram-7 gram/118 mL Administer per rectum PRN one time if dulcolax suppository not effective. Give on day 6 of no BM 1 2023 Active 2023 21481 95636 6 Daily as needed Rectal False Dextrose 50 % in water (D50W) intravenous solution [generic] Dextrose 50% evonne 20-50 ml (slow push) Intravenous if Glucagon not effective after 15 minutes. CALL 911 for ED Evaluation. 50% evonne 2023 Active 2023 31409 39446 9 Intrav enous False Glucagon (HCl) Emergency Kit 1 mg solution for injection Administer Glucagon 1 mg Intramuscular if 15 minutes after GLucose Gel is administered Glucose remains less than 70 1 mg 2023 Active 2023 39795 02758 2 Intram uscula r False Glucose Gel 40 % oral gel [Dextrose] PRN If resident is unable to swallow (with or without symptoms) and Glucose results less than 70 give GLucose 40% Gel 1 tube orally - Recheck Glucose 15 minutes after administratio n. 1 tube 2023 Active 2023 71256 81848 8 By Mouth False Milk of Magnesia 400 mg/5 mL oral suspension [Magnesium hydroxide] PRN 30ml By Mouth Daily as needed for constipation one time daily if no BM, on day 4 of no BM (PRN refer to instructions) For Constipation 30 mL 2023 Active 2023 81273 25811 6 Daily as needed By Mouth False Atorvastati n 40 mg tablet [generic] 08/26 Inactiv e 2023 97729 97232 5 Atorvastati n 40 mg tablet [generic] 40mg By Mouth Once daily For HDL 40mg 2023 Active 2023 63940 18578 5 Once daily By Mouth False Insulin aspart (U-100) 100 unit/mL (3 mL) subcutaneou s pen [generic] 15 units Subcutaneous 1 time For dm 15 units 08/26 Inactiv e 2023 69964 53834 5 1 time Subcut aneous False Humalog KwikPen (U-100) Insulin 100 unit/mL subcutaneou s 15 units Subcutaneous 1 time For dm 15 units 08/27 Inactiv e 2023 09930 15966 9 1 time Subcut aneous False Linezolid 600 mg tablet [generic] 600 mg By Mouth Every 12 hours For MRSA INFECTION L BKA 600 mg 09/06 Active 2023 25558 95443 1 Every 12 hours By Mouth False Cefpodoxime 200 mg tablet [generic] 400 mg By Mouth Twice daily For MRSA INFECTION L BKA 400 mg 08/31 Active 2023 45491 91892 0 Twice daily By Mouth False MediHoney HCS 4 1/2in X 4 1/2in bandage Cleanse area with NSS, apply one medihoney hydrocolloid dressing, non adherent dressing, kerlix secure with paper tape daily. For wound stage III 1 2023 Active 2023 51505 68988 1 Once daily Topica l False Problems Code Description Start Date End Date Status D64.9 Anemia, unspecified 08/25/2024 Activ e I25.10 Atherosclerotic hear t disease of [place] coronary artery without angina pectoris 08/25/2024 Active [...] weight Temperature SpO2 Blood Sugar Pulse Respirations 56668 8 67.00 mm[Hg] - Sitting 145.00 mm[Hg] - Sitting 98.50 Forehead Scan 96.00 % 81.00/ min 16.00/min 21828 004 67978 2 67.00 mm[Hg] - Sitting 145.00 mm[Hg] - Sitting 98.50 Tympanic 81.00/ min 16.00/min 24881 004 17174 5 56.00 mm[Hg] - Sitting 142.00 mm[Hg] - Sitting 136.40 NI 100.20 Tympanic 96.00 % 92.00/ min 18.00/min 97467 004 74206 6 06977 004 97257 4 143.00 mg/dL 44375 0 97.80 Tympanic 005 82907 7 60.00 mm[Hg] - Sitting 140.00 mm[Hg] - Sitting 98.00 Tympanic 84.00/ min 18.00/min 32755 005 04953 0 63.00 mm[Hg] - Sitting 141.00 mm[Hg] - Sitting 98.20 Tympanic 92.00 % 63.00/ min 16.00/min 08965 005 16181 8 69.00 mm[Hg] - Sitting 106.00 mm[Hg] - Sitting 97.20 Tympanic 005 61196 7 69.00/ min 16.00/min 93333 005 45545 3 69.00 mm[Hg] - Sitting 106.00 mm[Hg] - Sitting 98.20 Tympanic 69.00/ min 16.00/min 26336 005 40159 1 367.00 mg/dL 36216 005 19721 2 97.20 Tympanic 64862 005 68941 4 97.20 Tympanic 24556 005 67738 0 69.00 mm[Hg] - Sitting 106.00 mm[Hg] - Sitting 69.00/ min 70728 005 89772 3 452.00 mg/dL 10453 005 87828 3 452.00 mg/dL 58472 005 93896 5 352.00 mg/dL 62532 005 06265 3 352.00 mg/dL 57582 005 13915 7 98.20 Tympanic 98691 005 3 101.00 mg/dL 53429 005 8 101.00 mg/dL 44823 006 35092 4 66.00 mm[Hg] - Sitting 107.00 mm[Hg] - Sitting 98.00 Tympanic 66.00/ min 18.00/min 47225 006 14775 0 62.00 mm[Hg] - Sitting 162.00 mm[Hg] - Sitting 98.20 Tympanic 96.00 % 60.00/ min 16.00/min 60888 006 82450 4 62.00 mm[Hg] - Sitting 162.00 mm[Hg] - Sitting 98.00 Tympanic 70.00/ min 18.00/min 90740 006 60775 8 62.00 mm[Hg] - Sitting 162.00 mm[Hg] - Sitting 98.20 Tympanic 70.00/ min 18.00/min 03398 006 28593 2 66.00 mm[Hg] - Sitting 132.00 mm[Hg] - Sitting 98.60 Tympanic 74.00/ min 16.00/min 11599 006 71228 5 159.00 mg/dL 05340 006 08260 1 159.00 mg/dL 28690 006 72745 8 98.00 Tympanic 51096 006 48854 2 62.00 mm[Hg] - Sitting 162.00 mm[Hg] - Sitting 70.00/ min 22207 006 90619 7 264.00 mg/dL 13197 006 22711 7 264.00 mg/dL 14208 006 21698 4 196.00 mg/dL 87200 006 33658 3 98.20 Tympanic 72346 006 90868 6 271.00 mg/dL 90422 007 50201 3 97.20 Tympanic 72979 007 50208 2 63.00 mm[Hg] - Sitting 132.00 mm[Hg] - Sitting 98.50 Tympanic 94.00 % 66.00/ min 16.00/min 24799 007 09787 5 188.00 mg/dL 80778 007 66412 2 188.00 mg/dL 86918 007 49987 2 188.00 mg/dL 90023 007 40775 7 97.20 Tympanic 58924 007 39460 6 97.20 Tympanic 59744 007 15889 5 67.00 mm[Hg] - Sitting 152.00 mm[Hg] - Sitting 68.00/ min 76452 007 52355 0 141.00 mg/dL 12666 007 07557 3 141.00 mg/dL 26634 007 82269 1 366.00 mg/dL 52915 007 41192 7 366.00 mg/dL 87521 007 03508 7 98.00 Tympanic 40346 007 00539 6 324.00 mg/dL 27883 007 26857 3 98.00 Tympanic 96802 007 68264 7 324.00 mg/dL 95857 008 57651 0 98.00 Tympanic 86066 008 20138 2 97.90 Tympanic 72040 008 79106 0 98.20 Tympanic 53153 008 00111 0 73.00 mm[Hg] - Sitting 156.00 mm[Hg] - Sitting 98.60 Tympanic 99.00 % 66.00/ min 20.00/min 26733 008 94762 5 137.00 mg/dL 01767 008 58868 7 137.00 mg/dL 62251 008 07312 2 97.90 Tympanic 46765 008 90970 1 137.00 mg/dL 98104 008 77483 8 97.90 Tympanic 30425 008 48052 5 67.00 mm[Hg] - Sitting 124.00 /min 53317 008 87811 6 212.00 mg/dL 34683 008 10846 6 212.00 mg/dL 98909 008 38516 9 317.00 mg/dL 49840 008 21582 4 317.00 mg/dL 58636 008 20443 8 252.00 mg/dL 46756 008 68101 0 98.70 Tympanic 26130 008 17230 7 252.00 mg/dL 96453 008 19770 3 98.70 Tympanic
--- OUTSIDE RECORDS SUMMARY | 2024-10-03 11:19 | External Medical Summary | Continuity Of Care Document ---
Author Name Unknown Address [address] [address] Organization [facility] () Care Team Providers Care Registered Client Associate Name Role Phone DO Machado Amy Primary Care Provider [phone] Allergies Allergy Reaction Start Date End Date [...] 3 0.1 mL 08/29 Inactiv e 2023 54052 96668 0 1 time Intrad ermal False Tubersol 5 tub. unit/0.1 mL intradermal injection solution [Tuberculin PPD] 0.1mL Intradermal 1 time For PPD 2nd Step Give 2nd Step PPD Day 1 and Read results Day 3 (schedule 7 days after 1st READ) 0.1mL 09/08 Active 2023 71290 72621 0 1 time Intrad ermal False Humalog [...] order For Diabetes 08/25 Inactiv e 2023 03953 19122 9 4 times a day Subcut aneous False Aspirin 325 mg tablet [generic] 325 By Mouth Twice daily For Anticoagulati on 325 09/25 Active 2023 85758 21121 1 Twice daily By Mouth False Ferrous sulfate 325 mg (65 mg iron) tablet [generic] 325 By Mouth Once daily For anemia 325 2023 Active 2023 53634 22318 5 Once daily By Mouth False Linezolid 600 mg tablet [generic] 600 mg By Mouth Every 12 hours For MRSA INFECTION L BKA 600 mg 08/25 Inactiv e 2023 53698 82662 1 Every 12 hours By Mouth False Cefpodoxime 200 mg tablet [generic] 400 mg By Mouth Twice daily For MRSA INFECTION L BKA 400 mg 08/25 Inactiv e 2023 28799 79605 0 Twice daily By Mouth False Coenzyme Q10 100 mg tablet [generic] 100 mg By Mouth Once daily For SUPP 100 mg 2023 Active 2023 73130 15746 0 Once daily By Mouth False Levothyroxi ne 50 mcg tablet [generic] 50mcg By Mouth Once daily For hypothyroidis m 50mcg 2023 Active 2023 41444 71790 0 Once daily By Mouth False One A Day Men Complete 240 mcg-25 mcg-300 mcg tablet 1 tab By Mouth Once daily For supplement 1 tab 2023 Active 2023 10165 23490 1 Once daily By Mouth False Cholecalcif adalberto (vitamin D3) 50 mcg (2,000 unit) tablet [generic] 1 TAB By Mouth Once daily For SUPP 1 TAB 2023 Active 2023 28252 14231 1 Once daily By Mouth False Cetirizine 10 mg tablet [generic] 1 TAB By Mouth At bedtime For Allergies 1 TAB 2023 Active 2023 29010 87375 0 At bedtime By Mouth False Timolol maleate 0.25 % eye drops [generic] 1 drop Both Eyes Twice daily For glaucoma 1 drop 2023 Active 2023 93236 42649 5 Twice daily Both Eyes False Alendronate 35 mg tablet [generic] 35mg By Mouth Every week For SIADH 35mg 2023 Active 2023 21656 67944 5 Every week By Mouth False Lantus Solostar U-100 Insulin 100 unit/mL (3 mL) subcutaneou s pen 18 units Subcutaneous Every morning For DIABETES 18 units 08/25 Inactiv e 2023 29922 55574 0 Every morning Subcut aneous False Lantus Solostar U-100 Insulin 100 unit/mL (3 mL) subcutaneou s pen 18 units Subcutaneous Every morning For DIABETES 18 units 2023 Active 2023 12972 59000 0 Every morning Subcut aneous False Linezolid 600 mg tablet [generic] 600 mg By Mouth Every 12 hours For MRSA INFECTION L BKA 600 mg 08/28 Inactiv e 2023 81473 64602 1 Every 12 hours By Mouth False [...] order For Diabetes 08/31 Inactiv e 2023 25295 16954 9 4 times a day Subcut aneous False Cefpodoxime 200 mg tablet [generic] 400 mg By Mouth Twice daily For MRSA INFECTION L BKA 400 mg 08/28 Inactiv e 2023 26600 83126 0 Twice daily By Mouth False Brimonidine 0.1 % eye drops [generic] 1 drop Both Eyes Twice daily For glaucoma 1 drop 2023 Active 2023 44003 90775 0 Twice daily Both Eyes False Metoprolol succinate ER 50 mg tablet,exte nded release 24 hr [generic] 50 mg By Mouth Once daily HOLD FOR SBP <100, or pulse <60 For HTN 50 mg 2023 Active 2023 78977 75508 1 Once daily By Mouth False Amlodipine 2.5 mg tablet [generic] 2.5 mg By Mouth Once daily For HTN 2.5 mg 2023 Active 2023 44612 84974 5 Once daily By Mouth False Docusate sodium 100 mg capsule [generic] 100mg By Mouth Twice daily as needed For constipation HOLD FOR LOOSE STOOLS 100mg 2023 Active 2023 79923 88872 1 Twice daily as needed By Mouth False Atorvastati n 40 mg tablet [generic] 40mg By Mouth Once daily For HDL 40mg 08/26 Inactiv e 2023 52823 53561 5 Once daily By Mouth False Tylenol 325 mg tablet 2 tabs By Mouth Every 4 hours as needed For Pain DO NOT EXCEED 3000 MG APAP/24 Hours 2 tabs 2023 Active 2023 38107 12129 0 Every 4 hours as needed By Mouth False Tylenol 325 mg tablet 2 tabs By Mouth Every 4 hours as needed For Fever >100 DO NOT EXCEED 3000 MG APAP/24 Hours 2 tabs 2023 Active 2023 88224 29757 0 Every 4 hours as needed By Mouth False Dulcolax (bisacodyl) 10 mg rectal suppository One Suppository per rectum PRN if Milk of Magnisia ineffective. Give on day 5 of no BM 1 sup 2023 Active 2023 82823 91882 1 Daily as needed Rectal False Fleet Enema 19 gram-7 gram/118 mL Administer per rectum PRN one time if dulcolax suppository not effective. Give on day 6 of no BM 1 2023 Active 2023 99871 55826 6 Daily as needed Rectal False Dextrose 50 % in water (D50W) intravenous solution [generic] Dextrose 50% evonne 20-50 ml (slow push) Intravenous if Glucagon not effective after 15 minutes. CALL 911 for ED Evaluation. 50% evonne 2023 Active 2023 83502 79945 9 Intrav enous False Glucagon (HCl) Emergency Kit 1 mg solution for injection Administer Glucagon 1 mg Intramuscular if 15 minutes after GLucose Gel is administered Glucose remains less than 70 1 mg 2023 Active 2023 59319 09725 2 Intram uscula r False Glucose Gel 40 % oral gel [Dextrose] PRN If resident is unable to swallow (with or without symptoms) and Glucose results less than 70 give GLucose 40% Gel 1 tube orally - Recheck Glucose 15 minutes after administratio n. 1 tube 2023 Active 2023 78996 32386 8 By Mouth False Milk of Magnesia 400 mg/5 mL oral suspension [Magnesium hydroxide] PRN 30ml By Mouth Daily as needed for constipation one time daily if no BM, on day 4 of no BM (PRN refer to instructions) For Constipation 30 mL 2023 Active 2023 28899 14992 6 Daily as needed By Mouth False Atorvastati n 40 mg tablet [generic] 08/26 Inactiv e 2023 60552 96475 5 Atorvastati n 40 mg tablet [generic] 40mg By Mouth Once daily For HDL 40mg 2023 Active 2023 90121 92247 5 Once daily By Mouth False Insulin aspart (U-100) 100 unit/mL (3 mL) subcutaneou s pen [generic] 15 units Subcutaneous 1 time For dm 15 units 08/26 Inactiv e 2023 54351 08859 5 1 time Subcut aneous False Humalog KwikPen (U-100) Insulin 100 unit/mL subcutaneou s 15 units Subcutaneous 1 time For dm 15 units 08/27 Inactiv e 2023 38014 28360 9 1 time Subcut aneous False Linezolid 600 mg tablet [generic] 600 mg By Mouth Every 12 hours For MRSA INFECTION L BKA 600 mg 09/06 Active 2023 37672 60696 1 Every 12 hours By Mouth False Cefpodoxime 200 mg tablet [generic] 400 mg By Mouth Twice daily For MRSA INFECTION L BKA 400 mg 08/31 Inactiv e 2023 01317 34734 0 Twice daily By Mouth False Senna 8.6 mg tablet 8.6 mg By Mouth Once daily For Constipation 8.6 mg 2023 Active 2023 39023 90478 1 Once daily By Mouth False Humalog [...] abnormalities . Per Carb 2023 Active 2023 40485 21233 9 4 times a day Subcut aneous False Humalog KwikPen (U-100) Insulin 100 unit/mL subcutaneou s 08/31 Inactiv e 2023 33492 54747 9 MediHoney HCS 4 1/2in X 4 1/2in bandage Cleanse area with NSS, apply one mediney hydrocolloid dressing, non adherent dressing, kerlix secure with paper tape daily. For wound stage III 1 2023 Active 2023 56268 86199 1 Once daily Topica l False Problems Code Description Start Date End Date Status D64.9 Anemia, unspecified 08/25/2024 Activ e I25.10 Atherosclerotic hear t disease of [place] coronary artery without angina pectoris 08/25/2024 Active [...] weight Temperature SpO2 Blood Sugar Pulse Respirations 26277 8 67.00 mm[Hg] - Sitting 145.00 mm[Hg] - Sitting 98.50 Forehead Scan 96.00 % 81.00/ min 16.00/min 27491 2 67.00 mm[Hg] - Sitting 145.00 mm[Hg] - Sitting 98.50 Tympanic 81.00/ min 16.00/min 28920 004 82959 5 56.00 mm[Hg] - Sitting 142.00 mm[Hg] - Sitting 136.40 NI 100.20 Tympanic 96.00 % 92.00/ min 18.00/min 77810 004 80371 6 83145 004 37037 4 143.00 mg/dL 81378 004 71887 0 97.80 Tympanic 16169 005 08262 7 60.00 mm[Hg] - Sitting 140.00 mm[Hg] - Sitting 98.00 Tympanic 84.00/ min 18.00/min 83927 005 48728 0 63.00 mm[Hg] - Sitting 141.00 mm[Hg] - Sitting 98.20 Tympanic 92.00 % 63.00/ min 16.00/min 52976 005 76171 8 69.00 mm[Hg] - Sitting 106.00 mm[Hg] - Sitting 97.20 Tympanic 84961 005 47550 7 69.00/ min 16.00/min 60816 005 32825 3 69.00 mm[Hg] - Sitting 106.00 mm[Hg] - Sitting 98.20 Tympanic 69.00/ min 16.00/min 23708 005 89517 1 367.00 mg/dL 33923 005 64223 2 97.20 Tympanic 54608 005 61782 4 97.20 Tympanic 78286 005 51340 0 69.00 mm[Hg] - Sitting 106.00 mm[Hg] - Sitting 69.00/ min 23429 005 63433 3 452.00 mg/dL 87135 005 92239 3 452.00 mg/dL 73613 005 56073 5 352.00 mg/dL 81462 005 10224 3 352.00 mg/dL 53308 005 08836 7 98.20 Tympanic 60464 005 11721 3 101.00 mg/dL 89461 005 71595 8 101.00 mg/dL 92693 006 03380 4 66.00 mm[Hg] - Sitting 107.00 mm[Hg] - Sitting 98.00 Tympanic 66.00/ min 18.00/min 27106 006 05063 0 62.00 mm[Hg] - Sitting 162.00 mm[Hg] - Sitting 98.20 Tympanic 96.00 % 60.00/ min 16.00/min 53111 006 28089 4 62.00 mm[Hg] - Sitting 162.00 mm[Hg] - Sitting 98.00 Tympanic 70.00/ min 18.00/min 87312 006 04621 8 62.00 mm[Hg] - Sitting 162.00 mm[Hg] - Sitting 98.20 Tympanic 70.00/ min 18.00/min 02563 006 70877 2 66.00 mm[Hg] - Sitting 132.00 mm[Hg] - Sitting 98.60 Tympanic 74.00/ min 16.00/min 51250 006 78698 5 159.00 mg/dL 40907 006 81320 1 159.00 mg/dL 01964 006 61828 8 98.00 Tympanic 81835 006 63448 2 62.00 mm[Hg] - Sitting 162.00 mm[Hg] - Sitting 70.00/ min 62154 006 56644 7 264.00 mg/dL 23255 006 97297 7 264.00 mg/dL 09415 006 80762 4 196.00 mg/dL 43110 006 85158 3 98.20 Tympanic 79781 006 03629 6 271.00 mg/dL 49795 007 23553 3 97.20 Tympanic 04601 007 54600 2 63.00 mm[Hg] - Sitting 132.00 mm[Hg] - Sitting 98.50 Tympanic 94.00 % 66.00/ min 16.00/min 74618 007 70624 5 188.00 mg/dL 26854 007 91166 2 188.00 mg/dL 07244 007 08836 2 188.00 mg/dL 20229 007 43573 7 97.20 Tympanic 61658 007 32037 6 97.20 Tympanic 84233 007 34558 5 67.00 mm[Hg] - Sitting 152.00 mm[Hg] - Sitting 68.00/ min 98993 007 14688 0 141.00 mg/dL 19722 007 12435 3 141.00 mg/dL 38945 007 77226 1 366.00 mg/dL 90123 007 99794 7 366.00 mg/dL 64103 007 60098 7 98.00 Tympanic 01188 007 14940 6 324.00 mg/dL 26840 007 38635 3 98.00 Tympanic 10841 007 47296 7 324.00 mg/dL 20557 008 41394 0 98.00 Tympanic 13682 008 31814 2 97.90 Tympanic 88137 008 27732 0 98.20 Tympanic 81847 008 69707 0 73.00 mm[Hg] - Sitting 156.00 mm[Hg] - Sitting 98.60 Tympanic 99.00 % 66.00/ min 20.00/min 20214 008 69763 5 137.00 mg/dL 10652 008 91319 7 137.00 mg/dL 93499 008 51931 2 97.90 Tympanic 18468 008 29204 1 137.00 mg/dL 85399 008 92993 8 97.90 Tympanic 71486 008 77092 5 67.00 mm[Hg] - Sitting 124.00 /min 22819 008 57299 6 212.00 mg/dL 79903 008 13709 6 212.00 mg/dL 72396 008 93868 9 317.00 mg/dL 01520 008 99361 4 317.00 mg/dL 38745 008 26414 8 252.00 mg/dL 85370 008 86483 0 98.70 Tympanic 72120 008 01656 7 252.00 mg/dL 77389 008 75327 3 98.70 Tympanic 51735 009 30681 9 98.70 Tympanic 70491 009 50373 3 98.20 Tympanic 52634 009 85446 5 98.40 Tympanic 70028 009 73917 5 57.00 mm[Hg] - Sitting 129.00 mm[Hg] - Sitting 98.30 Tympanic 97.00 % 65.00/ min 18.00/min 10060 009 66043 1 255.00 mg/dL 10178 009 96306 4 255.00 mg/dL 76832 009 74977 5 98.20 Tympanic 82666 009 77167 0 255.00 mg/dL 25297 009 02814 0 98.20 Tympanic 73036 009 62543 4 63.00 mm[Hg] - Lying Down 102.00 mm[Hg] - Lying Down 58.00/ min 31754 009 09882 0 167.00 mg/dL 29364 009 23792 1 167.00 mg/dL 02600 009 74925 2 164.00 mg/dL 43196 009 01192 1 164.00 mg/dL 03465 009 95339 5 208.00 mg/dL 00522 010 79694 2 214.00 mg/dL 23593 010 54067 0 214.00 mg/dL 27967 010 36552 7 214.00 mg/dL 36636 6 64.00 mm[Hg] - Sitting 110.00 mm[Hg] - Sitting 72.00/ min 71788 7 98.40 Tympanic 15194 1 212.00 mg/dL 73308 2 212.00 mg/dL
--- OUTSIDE RECORDS SUMMARY | 2024-10-03 11:19 | External Medical Summary | Continuity Of Care Document ---
Author Name Unknown Address [address] [address] Organization [facility] () Care Team Providers Care Fire Production Operator Name Role Phone DO Machado Amy Primary Care Provider [phone] Allergies Allergy Reaction Start Date End Date [...] 3 0.1 mL 08/29 Inactiv e 2023 05524 10208 0 1 time Intrad ermal False Tubersol 5 tub. unit/0.1 mL intradermal injection solution [Tuberculin PPD] 0.1mL Intradermal 1 time For PPD 2nd Step Give 2nd Step PPD Day 1 and Read results Day 3 (schedule 7 days after 1st READ) 0.1mL 09/08 Active 2023 56550 06817 0 1 time Intrad ermal False Humalog [...] order For Diabetes 08/25 Inactiv e 2023 50291 02229 9 4 times a day Subcut aneous False Aspirin 325 mg tablet [generic] 325 By Mouth Twice daily For Anticoagulati on 325 09/25 Active 2023 38292 19656 1 Twice daily By Mouth False Ferrous sulfate 325 mg (65 mg iron) tablet [generic] 325 By Mouth Once daily For anemia 325 2023 Active 2023 67061 23290 5 Once daily By Mouth False Linezolid 600 mg tablet [generic] 600 mg By Mouth Every 12 hours For MRSA INFECTION L BKA 600 mg 08/25 Inactiv e 2023 28052 04950 1 Every 12 hours By Mouth False Cefpodoxime 200 mg tablet [generic] 400 mg By Mouth Twice daily For MRSA INFECTION L BKA 400 mg 08/25 Inactiv e 2023 06372 80484 0 Twice daily By Mouth False Coenzyme Q10 100 mg tablet [generic] 100 mg By Mouth Once daily For SUPP 100 mg 2023 Active 2023 37073 36357 0 Once daily By Mouth False Levothyroxi ne 50 mcg tablet [generic] 50mcg By Mouth Once daily For hypothyroidis m 50mcg 2023 Active 2023 24507 68322 0 Once daily By Mouth False One A Day Men Complete 240 mcg-25 mcg-300 mcg tablet 1 tab By Mouth Once daily For supplement 1 tab 2023 Active 2023 13983 75270 1 Once daily By Mouth False Cholecalcif adalberto (vitamin D3) 50 mcg (2,000 unit) tablet [generic] 1 TAB By Mouth Once daily For SUPP 1 TAB 2023 Active 2023 29290 52749 1 Once daily By Mouth False Cetirizine 10 mg tablet [generic] 1 TAB By Mouth At bedtime For Allergies 1 TAB 2023 Active 2023 18676 51623 0 At bedtime By Mouth False Timolol maleate 0.25 % eye drops [generic] 1 drop Both Eyes Twice daily For glaucoma 1 drop 2023 Active 2023 10000 78537 5 Twice daily Both Eyes False Alendronate 35 mg tablet [generic] 35mg By Mouth Every week For SIADH 35mg 2023 Active 2023 48356 46668 5 Every week By Mouth False Lantus Solostar U-100 Insulin 100 unit/mL (3 mL) subcutaneou s pen 18 units Subcutaneous Every morning For DIABETES 18 units 08/25 Inactiv e 2023 56657 11202 0 Every morning Subcut aneous False Lantus Solostar U-100 Insulin 100 unit/mL (3 mL) subcutaneou s pen 18 units Subcutaneous Every morning For DIABETES 18 units 2023 Active 2023 43469 90085 0 Every morning Subcut aneous False Linezolid 600 mg tablet [generic] 600 mg By Mouth Every 12 hours For MRSA INFECTION L BKA 600 mg 08/28 Inactiv e 2023 77639 29798 1 Every 12 hours By Mouth False [...] one-time order For Diabetes 2023 Active 2023 48837 31808 9 4 times a day Subcut aneous False Cefpodoxime 200 mg tablet [generic] 400 mg By Mouth Twice daily For MRSA INFECTION L BKA 400 mg 08/28 Inactiv e 2023 12071 92669 0 Twice daily By Mouth False Brimonidine 0.1 % eye drops [generic] 1 drop Both Eyes Twice daily For glaucoma 1 drop 2023 Active 2023 85562 92450 0 Twice daily Both Eyes False Metoprolol succinate ER 50 mg tablet,exte nded release 24 hr [generic] 50 mg By Mouth Once daily HOLD FOR SBP <100, or pulse <60 For HTN 50 mg 2023 Active 2023 92405 64574 1 Once daily By Mouth False Amlodipine 2.5 mg tablet [generic] 2.5 mg By Mouth Once daily For HTN 2.5 mg 2023 Active 2023 69558 40550 5 Once daily By Mouth False Docusate sodium 100 mg capsule [generic] 100mg By Mouth Twice daily as needed For constipation HOLD FOR LOOSE STOOLS 100mg 2023 Active 2023 46828 39923 1 Twice daily as needed By Mouth False Atorvastati n 40 mg tablet [generic] 40mg By Mouth Once daily For HDL 40mg 08/26 Inactiv e 2023 18129 83484 5 Once daily By Mouth False Tylenol 325 mg tablet 2 tabs By Mouth Every 4 hours as needed For Pain DO NOT EXCEED 3000 MG APAP/24 Hours 2 tabs 2023 Active 2023 05713 37653 0 Every 4 hours as needed By Mouth False Tylenol 325 mg tablet 2 tabs By Mouth Every 4 hours as needed For Fever >100 DO NOT EXCEED 3000 MG APAP/24 Hours 2 tabs 2023 Active 2023 51282 53053 0 Every 4 hours as needed By Mouth False Dulcolax (bisacodyl) 10 mg rectal suppository One Suppository per rectum PRN if Milk of Magnisia ineffective. Give on day 5 of no BM 1 sup 2023 Active 2023 01694 89466 1 Daily as needed Rectal False Fleet Enema 19 gram-7 gram/118 mL Administer per rectum PRN one time if dulcolax suppository not effective. Give on day 6 of no BM 1 2023 Active 2023 87470 84366 6 Daily as needed Rectal False Dextrose 50 % in water (D50W) intravenous solution [generic] Dextrose 50% evonne 20-50 ml (slow push) Intravenous if Glucagon not effective after 15 minutes. CALL 911 for ED Evaluation. 50% evonne 2023 Active 2023 64893 10517 9 Intrav enous False Glucagon (HCl) Emergency Kit 1 mg solution for injection Administer Glucagon 1 mg Intramuscular if 15 minutes after GLucose Gel is administered Glucose remains less than 70 1 mg 2023 Active 2023 60062 57870 2 Intram uscula r False Glucose Gel 40 % oral gel [Dextrose] PRN If resident is unable to swallow (with or without symptoms) and Glucose results less than 70 give GLucose 40% Gel 1 tube orally - Recheck Glucose 15 minutes after administratio n. 1 tube 2023 Active 2023 95899 44693 8 By Mouth False Milk of Magnesia 400 mg/5 mL oral suspension [Magnesium hydroxide] PRN 30ml By Mouth Daily as needed for constipation one time daily if no BM, on day 4 of no BM (PRN refer to instructions) For Constipation 30 mL 2023 Active 2023 85417 95120 6 Daily as needed By Mouth False Atorvastati n 40 mg tablet [generic] 08/26 Inactiv e 2023 50697 18505 5 Atorvastati n 40 mg tablet [generic] 40mg By Mouth Once daily For HDL 40mg 2023 Active 2023 31435 81604 5 Once daily By Mouth False Insulin aspart (U-100) 100 unit/mL (3 mL) subcutaneou s pen [generic] 15 units Subcutaneous 1 time For dm 15 units 08/26 Inactiv e 2023 66307 38018 5 1 time Subcut aneous False Humalog KwikPen (U-100) Insulin 100 unit/mL subcutaneou s 15 units Subcutaneous 1 time For dm 15 units 08/27 Inactiv e 2023 40471 37062 9 1 time Subcut aneous False Linezolid 600 mg tablet [generic] 600 mg By Mouth Every 12 hours For MRSA INFECTION L BKA 600 mg 09/06 Active 2023 43535 62494 1 Every 12 hours By Mouth False Cefpodoxime 200 mg tablet [generic] 400 mg By Mouth Twice daily For MRSA INFECTION L BKA 400 mg 08/31 Active 2023 29250 29249 0 Twice daily By Mouth False MediHoney HCS 4 1/2in X 4 1/2in bandage Cleanse area with NSS, apply one medihoney hydrocolloid dressing, non adherent dressing, kerlix secure with paper tape daily. For wound stage III 1 2023 Active 2023 53628 01287 1 Once daily Topica l False Problems Code Description Start Date End Date Status D64.9 Anemia, unspecified 08/25/2024 Activ e I25.10 Atherosclerotic hear t disease of [place] coronary artery without angina pectoris 08/25/2024 [...] weight Temperature SpO2 Blood Sugar Pulse Respirations 78414 8 67.00 mm[Hg] - Sitting 145.00 mm[Hg] - Sitting 98.50 Forehead Scan 96.00 % 81.00/ min 16.00/min 04320 004 85647 2 67.00 mm[Hg] - Sitting 145.00 mm[Hg] - Sitting 98.50 Tympanic 81.00/ min 16.00/min 91203 004 81940 5 56.00 mm[Hg] - Sitting 142.00 mm[Hg] - Sitting 136.40 NI 100.20 Tympanic 96.00 % 92.00/ min 18.00/min 26822 004 65346 6 84329 004 24694 4 143.00 mg/dL 12501 0 97.80 Tympanic 005 31091 7 60.00 mm[Hg] - Sitting 140.00 mm[Hg] - Sitting 98.00 Tympanic 84.00/ min 18.00/min 24601 005 06697 0 63.00 mm[Hg] - Sitting 141.00 mm[Hg] - Sitting 98.20 Tympanic 92.00 % 63.00/ min 16.00/min 96929 005 16674 8 69.00 mm[Hg] - Sitting 106.00 mm[Hg] - Sitting 97.20 Tympanic 005 12751 7 69.00/ min 16.00/min 19743 005 99334 3 69.00 mm[Hg] - Sitting 106.00 mm[Hg] - Sitting 98.20 Tympanic 69.00/ min 16.00/min 95902 005 50929 1 367.00 mg/dL 04023 005 01910 2 97.20 Tympanic 67674 005 17585 4 97.20 Tympanic 94001 005 32121 0 69.00 mm[Hg] - Sitting 106.00 mm[Hg] - Sitting 69.00/ min 83001 005 54525 3 452.00 mg/dL 33054 005 26197 3 452.00 mg/dL 09387 005 22076 5 352.00 mg/dL 40787 005 38339 3 352.00 mg/dL 57227 005 84027 7 98.20 Tympanic 22138 005 3 101.00 mg/dL 26222 005 8 101.00 mg/dL 34792 006 14884 4 66.00 mm[Hg] - Sitting 107.00 mm[Hg] - Sitting 98.00 Tympanic 66.00/ min 18.00/min 69915 006 10039 0 62.00 mm[Hg] - Sitting 162.00 mm[Hg] - Sitting 98.20 Tympanic 96.00 % 60.00/ min 16.00/min 01447 006 01731 4 62.00 mm[Hg] - Sitting 162.00 mm[Hg] - Sitting 98.00 Tympanic 70.00/ min 18.00/min 20163 006 49052 8 62.00 mm[Hg] - Sitting 162.00 mm[Hg] - Sitting 98.20 Tympanic 70.00/ min 18.00/min 69028 006 32321 2 66.00 mm[Hg] - Sitting 132.00 mm[Hg] - Sitting 98.60 Tympanic 74.00/ min 16.00/min 47741 006 32791 5 159.00 mg/dL 59822 006 02569 1 159.00 mg/dL 94244 006 83018 8 98.00 Tympanic 21487 006 37458 2 70.00/ min
--- OUTSIDE RECORDS SUMMARY | 2024-10-03 11:19 | External Medical Summary | Continuity Of Care Document ---
Author Name Unknown Address [address] [address] Organization [facility] () Care Team Providers Care Public Information Coordinator Name Role Phone DO Machado Amy Primary Care Provider [phone] Allergies Allergy Reaction Start Date End Date [...] 3 0.1 mL 08/29 Inactiv e 2023 73033 21130 0 1 time Intrad ermal False Tubersol 5 tub. unit/0.1 mL intradermal injection solution [Tuberculin PPD] 0.1mL Intradermal 1 time For PPD 2nd Step Give 2nd Step PPD Day 1 and Read results Day 3 (schedule 7 days after 1st READ) 0.1mL 09/08 Active 2023 08155 12489 0 1 time Intrad ermal False Humalog [...] order For Diabetes 08/25 Inactiv e 2023 99342 47708 9 4 times a day Subcut aneous False Aspirin 325 mg tablet [generic] 325 By Mouth Twice daily For Anticoagulati on 325 09/25 Active 2023 80479 63198 1 Twice daily By Mouth False Ferrous sulfate 325 mg (65 mg iron) tablet [generic] 325 By Mouth Once daily For anemia 325 2023 Active 2023 51194 73167 5 Once daily By Mouth False Linezolid 600 mg tablet [generic] 600 mg By Mouth Every 12 hours For MRSA INFECTION L BKA 600 mg 08/25 Inactiv e 2023 05802 26092 1 Every 12 hours By Mouth False Cefpodoxime 200 mg tablet [generic] 400 mg By Mouth Twice daily For MRSA INFECTION L BKA 400 mg 08/25 Inactiv e 2023 92567 10564 0 Twice daily By Mouth False Coenzyme Q10 100 mg tablet [generic] 100 mg By Mouth Once daily For SUPP 100 mg 2023 Active 2023 37216 04416 0 Once daily By Mouth False Levothyroxi ne 50 mcg tablet [generic] 50mcg By Mouth Once daily For hypothyroidis m 50mcg 2023 Active 2023 08614 01722 0 Once daily By Mouth False One A Day Men Complete 240 mcg-25 mcg-300 mcg tablet 1 tab By Mouth Once daily For supplement 1 tab 2023 Active 2023 24696 77855 1 Once daily By Mouth False Cholecalcif adalberto (vitamin D3) 50 mcg (2,000 unit) tablet [generic] 1 TAB By Mouth Once daily For SUPP 1 TAB 2023 Active 2023 97204 04677 1 Once daily By Mouth False Cetirizine 10 mg tablet [generic] 1 TAB By Mouth At bedtime For Allergies 1 TAB 2023 Active 2023 65411 00455 0 At bedtime By Mouth False Timolol maleate 0.25 % eye drops [generic] 1 drop Both Eyes Twice daily For glaucoma 1 drop 2023 Active 2023 27147 45345 5 Twice daily Both Eyes False Alendronate 35 mg tablet [generic] 35mg By Mouth Every week For SIADH 35mg 2023 Active 2023 25151 35038 5 Every week By Mouth False Lantus Solostar U-100 Insulin 100 unit/mL (3 mL) subcutaneou s pen 18 units Subcutaneous Every morning For DIABETES 18 units 08/25 Inactiv e 2023 42793 68143 0 Every morning Subcut aneous False Lantus Solostar U-100 Insulin 100 unit/mL (3 mL) subcutaneou s pen 18 units Subcutaneous Every morning For DIABETES 18 units 2023 Active 2023 61257 79103 0 Every morning Subcut aneous False Linezolid 600 mg tablet [generic] 600 mg By Mouth Every 12 hours For MRSA INFECTION L BKA 600 mg 08/28 Inactiv e 2023 01155 11981 1 Every 12 hours By Mouth False [...] one-time order For Diabetes 2023 Active 2023 78768 57596 9 4 times a day Subcut aneous False Cefpodoxime 200 mg tablet [generic] 400 mg By Mouth Twice daily For MRSA INFECTION L BKA 400 mg 08/28 Inactiv e 2023 04833 38254 0 Twice daily By Mouth False Brimonidine 0.1 % eye drops [generic] 1 drop Both Eyes Twice daily For glaucoma 1 drop 2023 Active 2023 30085 38855 0 Twice daily Both Eyes False Metoprolol succinate ER 50 mg tablet,exte nded release 24 hr [generic] 50 mg By Mouth Once daily HOLD FOR SBP <100, or pulse <60 For HTN 50 mg 2023 Active 2023 69499 10253 1 Once daily By Mouth False Amlodipine 2.5 mg tablet [generic] 2.5 mg By Mouth Once daily For HTN 2.5 mg 2023 Active 2023 96392 12374 5 Once daily By Mouth False Docusate sodium 100 mg capsule [generic] 100mg By Mouth Twice daily as needed For constipation HOLD FOR LOOSE STOOLS 100mg 2023 Active 2023 51723 74968 1 Twice daily as needed By Mouth False Atorvastati n 40 mg tablet [generic] 40mg By Mouth Once daily For HDL 40mg 08/26 Inactiv e 2023 24552 69555 5 Once daily By Mouth False Tylenol 325 mg tablet 2 tabs By Mouth Every 4 hours as needed For Pain DO NOT EXCEED 3000 MG APAP/24 Hours 2 tabs 2023 Active 2023 52482 29780 0 Every 4 hours as needed By Mouth False Tylenol 325 mg tablet 2 tabs By Mouth Every 4 hours as needed For Fever >100 DO NOT EXCEED 3000 MG APAP/24 Hours 2 tabs 2023 Active 2023 81380 60901 0 Every 4 hours as needed By Mouth False Dulcolax (bisacodyl) 10 mg rectal suppository One Suppository per rectum PRN if Milk of Magnisia ineffective. Give on day 5 of no BM 1 sup 2023 Active 2023 59732 68340 1 Daily as needed Rectal False Fleet Enema 19 gram-7 gram/118 mL Administer per rectum PRN one time if dulcolax suppository not effective. Give on day 6 of no BM 1 2023 Active 2023 27120 50932 6 Daily as needed Rectal False Dextrose 50 % in water (D50W) intravenous solution [generic] Dextrose 50% evonne 20-50 ml (slow push) Intravenous if Glucagon not effective after 15 minutes. CALL 911 for ED Evaluation. 50% evonne 2023 Active 2023 97794 95733 9 Intrav enous False Glucagon (HCl) Emergency Kit 1 mg solution for injection Administer Glucagon 1 mg Intramuscular if 15 minutes after GLucose Gel is administered Glucose remains less than 70 1 mg 2023 Active 2023 64347 54764 2 Intram uscula r False Glucose Gel 40 % oral gel [Dextrose] PRN If resident is unable to swallow (with or without symptoms) and Glucose results less than 70 give GLucose 40% Gel 1 tube orally - Recheck Glucose 15 minutes after administratio n. 1 tube 2023 Active 2023 84357 46320 8 By Mouth False Milk of Magnesia 400 mg/5 mL oral suspension [Magnesium hydroxide] PRN 30ml By Mouth Daily as needed for constipation one time daily if no BM, on day 4 of no BM (PRN refer to instructions) For Constipation 30 mL 2023 Active 2023 09344 88976 6 Daily as needed By Mouth False Atorvastati n 40 mg tablet [generic] 08/26 Inactiv e 2023 79711 99763 5 Atorvastati n 40 mg tablet [generic] 40mg By Mouth Once daily For HDL 40mg 2023 Active 2023 09538 16519 5 Once daily By Mouth False Insulin aspart (U-100) 100 unit/mL (3 mL) subcutaneou s pen [generic] 15 units Subcutaneous 1 time For dm 15 units 08/26 Inactiv e 2023 47214 27802 5 1 time Subcut aneous False Humalog KwikPen (U-100) Insulin 100 unit/mL subcutaneou s 15 units Subcutaneous 1 time For dm 15 units 08/27 Inactiv e 2023 73576 56603 9 1 time Subcut aneous False Linezolid 600 mg tablet [generic] 600 mg By Mouth Every 12 hours For MRSA INFECTION L BKA 600 mg 09/06 Active 2023 66386 95518 1 Every 12 hours By Mouth False Cefpodoxime 200 mg tablet [generic] 400 mg By Mouth Twice daily For MRSA INFECTION L BKA 400 mg 08/31 Active 2023 99221 72530 0 Twice daily By Mouth False MediHoney HCS 4 1/2in X 4 1/2in bandage Cleanse area with NSS, apply one medihoney hydrocolloid dressing, non adherent dressing, kerlix secure with paper tape daily. For wound stage III 1 2023 Active 2023 02915 27330 1 Once daily Topica l False Problems Code Description Start Date End Date Status D64.9 Anemia, unspecified 08/25/2024 Activ e I25.10 Atherosclerotic hear t disease of [place] coronary artery without angina pectoris 08/25/2024 Active [...] weight Temperature SpO2 Blood Sugar Pulse Respirations 88664 8 67.00 mm[Hg] - Sitting 145.00 mm[Hg] - Sitting 98.50 Forehead Scan 96.00 % 81.00/ min 16.00/min 40606 004 89848 2 67.00 mm[Hg] - Sitting 145.00 mm[Hg] - Sitting 98.50 Tympanic 81.00/ min 16.00/min 73770 004 38967 5 56.00 mm[Hg] - Sitting 142.00 mm[Hg] - Sitting 136.40 NI 100.20 Tympanic 96.00 % 92.00/ min 18.00/min 16157 004 92347 6 77077 004 52170 4 143.00 mg/dL 47054 0 97.80 Tympanic 005 65542 7 60.00 mm[Hg] - Sitting 140.00 mm[Hg] - Sitting 98.00 Tympanic 84.00/ min 18.00/min 66850 005 31503 0 63.00 mm[Hg] - Sitting 141.00 mm[Hg] - Sitting 98.20 Tympanic 92.00 % 63.00/ min 16.00/min 37948 005 32684 8 69.00 mm[Hg] - Sitting 106.00 mm[Hg] - Sitting 97.20 Tympanic 005 07308 7 69.00/ min 16.00/min 09734 005 09455 3 69.00 mm[Hg] - Sitting 106.00 mm[Hg] - Sitting 98.20 Tympanic 69.00/ min 16.00/min 58066 005 40492 1 367.00 mg/dL 75283 005 46132 2 97.20 Tympanic 13594 005 32893 4 97.20 Tympanic 51435 005 50396 0 69.00 mm[Hg] - Sitting 106.00 mm[Hg] - Sitting 69.00/ min 86524 005 57570 3 452.00 mg/dL 24494 005 14318 3 452.00 mg/dL 55543 005 34531 5 352.00 mg/dL 92839 005 70401 3 352.00 mg/dL 83807 005 29936 7 98.20 Tympanic 61006 005 3 101.00 mg/dL 75648 005 8 101.00 mg/dL 51231 006 39418 4 66.00 mm[Hg] - Sitting 107.00 mm[Hg] - Sitting 98.00 Tympanic 66.00/ min 18.00/min 10557 006 49615 0 62.00 mm[Hg] - Sitting 162.00 mm[Hg] - Sitting 98.20 Tympanic 96.00 % 60.00/ min 16.00/min 23265 006 13259 4 62.00 mm[Hg] - Sitting 162.00 mm[Hg] - Sitting 98.00 Tympanic 70.00/ min 18.00/min 50160 006 93341 8 62.00 mm[Hg] - Sitting 162.00 mm[Hg] - Sitting 98.20 Tympanic 70.00/ min 18.00/min 69436 006 57995 2 66.00 mm[Hg] - Sitting 132.00 mm[Hg] - Sitting 98.60 Tympanic 74.00/ min 16.00/min 00853 006 45290 5 159.00 mg/dL 72395 006 82479 1 159.00 mg/dL 18132 006 28987 8 98.00 Tympanic 74303 006 02768 2 62.00 mm[Hg] - Sitting 162.00 mm[Hg] - Sitting 70.00/ min 36721 006 58432 7 264.00 mg/dL 85435 006 58566 7 264.00 mg/dL 19738 006 80428 4 196.00 mg/dL 34043 006 10843 3 98.20 Tympanic 35728 006 05220 6 271.00 mg/dL 19257 007 59642 3 97.20 Tympanic 04501 007 67446 2 63.00 mm[Hg] - Sitting 132.00 mm[Hg] - Sitting 98.50 Tympanic 94.00 % 66.00/ min 16.00/min 24710 007 89164 5 188.00 mg/dL 02713 007 22222 2 188.00 mg/dL 73225 007 52512 2 188.00 mg/dL 22374 007 37443 7 97.20 Tympanic 68108 007 76303 6 97.20 Tympanic 84099 007 77263 5 67.00 mm[Hg] - Sitting 152.00 mm[Hg] - Sitting 68.00/ min 47921 007 90710 0 141.00 mg/dL 05970 007 30834 3 141.00 mg/dL 81164 007 45126 1 366.00 mg/dL 77811 007 24144 7 366.00 mg/dL 07909 007 51155 7 98.00 Tympanic 07460 007 18673 6 324.00 mg/dL 10146 007 46026 3 98.00 Tympanic 41767 007 53086 7 324.00 mg/dL 40110 008 01716 0 98.00 Tympanic 49729 008 56312 2 97.90 Tympanic 81248 008 89105 0 98.20 Tympanic 64962 008 68716 0 73.00 mm[Hg] - Sitting 156.00 mm[Hg] - Sitting 98.60 Tympanic 99.00 % 66.00/ min 20.00/min 91338 008 97569 5 137.00 mg/dL 69107 008 62471 7 137.00 mg/dL 05963 008 39521 2 97.90 Tympanic 78215 008 54334 1 137.00 mg/dL 45298 008 41099 8 97.90 Tympanic 13742 008 37537 5 67.00 mm[Hg] - Sitting 124.00 /min 24646 008 65625 6 212.00 mg/dL 23653 008 25050 6 212.00 mg/dL 96149 008 68222 9 317.00 mg/dL 28932 008 64231 4 317.00 mg/dL
--- OUTSIDE RECORDS SUMMARY | 2024-10-03 11:19 | External Medical Summary | Continuity Of Care Document ---
Author Name Unknown Address [address] [address] Organization [facility] () Care Team Providers Care Tractor Mechanic Helper Name Role Phone DO Machado Amy Primary Care Provider [phone] Allergies Allergy Reaction Start Date End Date [...] 3 0.1 mL 08/29 Inactiv e 2023 93236 00399 0 1 time Intrad ermal False Tubersol 5 tub. unit/0.1 mL intradermal injection solution [Tuberculin PPD] 0.1mL Intradermal 1 time For PPD 2nd Step Give 2nd Step PPD Day 1 and Read results Day 3 (schedule 7 days after 1st READ) 0.1mL 09/08 Active 2023 88943 89576 0 1 time Intrad ermal False Humalog [...] order For Diabetes 08/25 Inactiv e 2023 49739 67452 9 4 times a day Subcut aneous False Aspirin 325 mg tablet [generic] 325 By Mouth Twice daily For Anticoagulati on 325 09/25 Active 2023 23236 48468 1 Twice daily By Mouth False Ferrous sulfate 325 mg (65 mg iron) tablet [generic] 325 By Mouth Once daily For anemia 325 2023 Active 2023 73995 02714 5 Once daily By Mouth False Linezolid 600 mg tablet [generic] 600 mg By Mouth Every 12 hours For MRSA INFECTION L BKA 600 mg 08/25 Inactiv e 2023 71185 23420 1 Every 12 hours By Mouth False Cefpodoxime 200 mg tablet [generic] 400 mg By Mouth Twice daily For MRSA INFECTION L BKA 400 mg 08/25 Inactiv e 2023 83826 56612 0 Twice daily By Mouth False Coenzyme Q10 100 mg tablet [generic] 100 mg By Mouth Once daily For SUPP 100 mg 2023 Active 2023 63918 72604 0 Once daily By Mouth False Levothyroxi ne 50 mcg tablet [generic] 50mcg By Mouth Once daily For hypothyroidis m 50mcg 2023 Active 2023 37629 56856 0 Once daily By Mouth False One A Day Men Complete 240 mcg-25 mcg-300 mcg tablet 1 tab By Mouth Once daily For supplement 1 tab 2023 Active 2023 57899 09985 1 Once daily By Mouth False Cholecalcif adalberto (vitamin D3) 50 mcg (2,000 unit) tablet [generic] 1 TAB By Mouth Once daily For SUPP 1 TAB 2023 Active 2023 08810 76390 1 Once daily By Mouth False Cetirizine 10 mg tablet [generic] 1 TAB By Mouth At bedtime For Allergies 1 TAB 2023 Active 2023 87558 66269 0 At bedtime By Mouth False Timolol maleate 0.25 % eye drops [generic] 1 drop Both Eyes Twice daily For glaucoma 1 drop 2023 Active 2023 68375 64381 5 Twice daily Both Eyes False Alendronate 35 mg tablet [generic] 35mg By Mouth Every week For SIADH 35mg 2023 Active 2023 36607 04506 5 Every week By Mouth False Lantus Solostar U-100 Insulin 100 unit/mL (3 mL) subcutaneou s pen 18 units Subcutaneous Every morning For DIABETES 18 units 08/25 Inactiv e 2023 14786 57136 0 Every morning Subcut aneous False Lantus Solostar U-100 Insulin 100 unit/mL (3 mL) subcutaneou s pen 18 units Subcutaneous Every morning For DIABETES 18 units 2023 Active 2023 68632 78911 0 Every morning Subcut aneous False Linezolid 600 mg tablet [generic] 600 mg By Mouth Every 12 hours For MRSA INFECTION L BKA 600 mg 08/28 Inactiv e 2023 91835 57187 1 Every 12 hours By Mouth False [...] one-time order For Diabetes 2023 Active 2023 74363 73578 9 4 times a day Subcut aneous False Cefpodoxime 200 mg tablet [generic] 400 mg By Mouth Twice daily For MRSA INFECTION L BKA 400 mg 08/28 Inactiv e 2023 76556 69638 0 Twice daily By Mouth False Brimonidine 0.1 % eye drops [generic] 1 drop Both Eyes Twice daily For glaucoma 1 drop 2023 Active 2023 10234 45679 0 Twice daily Both Eyes False Metoprolol succinate ER 50 mg tablet,exte nded release 24 hr [generic] 50 mg By Mouth Once daily HOLD FOR SBP <100, or pulse <60 For HTN 50 mg 2023 Active 2023 78004 83737 1 Once daily By Mouth False Amlodipine 2.5 mg tablet [generic] 2.5 mg By Mouth Once daily For HTN 2.5 mg 2023 Active 2023 92971 99445 5 Once daily By Mouth False Docusate sodium 100 mg capsule [generic] 100mg By Mouth Twice daily as needed For constipation HOLD FOR LOOSE STOOLS 100mg 2023 Active 2023 97677 68480 1 Twice daily as needed By Mouth False Atorvastati n 40 mg tablet [generic] 40mg By Mouth Once daily For HDL 40mg 08/26 Inactiv e 2023 70883 36645 5 Once daily By Mouth False Tylenol 325 mg tablet 2 tabs By Mouth Every 4 hours as needed For Pain DO NOT EXCEED 3000 MG APAP/24 Hours 2 tabs 2023 Active 2023 38597 34391 0 Every 4 hours as needed By Mouth False Tylenol 325 mg tablet 2 tabs By Mouth Every 4 hours as needed For Fever >100 DO NOT EXCEED 3000 MG APAP/24 Hours 2 tabs 2023 Active 2023 93963 50649 0 Every 4 hours as needed By Mouth False Dulcolax (bisacodyl) 10 mg rectal suppository One Suppository per rectum PRN if Milk of Magnisia ineffective. Give on day 5 of no BM 1 sup 2023 Active 2023 61477 30579 1 Daily as needed Rectal False Fleet Enema 19 gram-7 gram/118 mL Administer per rectum PRN one time if dulcolax suppository not effective. Give on day 6 of no BM 1 2023 Active 2023 74258 25625 6 Daily as needed Rectal False Dextrose 50 % in water (D50W) intravenous solution [generic] Dextrose 50% evonne 20-50 ml (slow push) Intravenous if Glucagon not effective after 15 minutes. CALL 911 for ED Evaluation. 50% evonne 2023 Active 2023 93646 68467 9 Intrav enous False Glucagon (HCl) Emergency Kit 1 mg solution for injection Administer Glucagon 1 mg Intramuscular if 15 minutes after GLucose Gel is administered Glucose remains less than 70 1 mg 2023 Active 2023 55429 38340 2 Intram uscula r False Glucose Gel 40 % oral gel [Dextrose] PRN If resident is unable to swallow (with or without symptoms) and Glucose results less than 70 give GLucose 40% Gel 1 tube orally - Recheck Glucose 15 minutes after administratio n. 1 tube 2023 Active 2023 56849 19063 8 By Mouth False Milk of Magnesia 400 mg/5 mL oral suspension [Magnesium hydroxide] PRN 30ml By Mouth Daily as needed for constipation one time daily if no BM, on day 4 of no BM (PRN refer to instructions) For Constipation 30 mL 2023 Active 2023 57717 16160 6 Daily as needed By Mouth False Atorvastati n 40 mg tablet [generic] 08/26 Inactiv e 2023 63897 78168 5 Atorvastati n 40 mg tablet [generic] 40mg By Mouth Once daily For HDL 40mg 2023 Active 2023 41596 18357 5 Once daily By Mouth False Insulin aspart (U-100) 100 unit/mL (3 mL) subcutaneou s pen [generic] 15 units Subcutaneous 1 time For dm 15 units 08/26 Inactiv e 2023 74604 93859 5 1 time Subcut aneous False Humalog KwikPen (U-100) Insulin 100 unit/mL subcutaneou s 15 units Subcutaneous 1 time For dm 15 units 08/27 Inactiv e 2023 96893 58546 9 1 time Subcut aneous False Linezolid 600 mg tablet [generic] 600 mg By Mouth Every 12 hours For MRSA INFECTION L BKA 600 mg 09/06 Active 2023 63395 03656 1 Every 12 hours By Mouth False Cefpodoxime 200 mg tablet [generic] 400 mg By Mouth Twice daily For MRSA INFECTION L BKA 400 mg 08/31 Active 2023 36779 53182 0 Twice daily By Mouth False Senna 8.6 mg tablet 8.6 mg By Mouth Once daily For Constipation 8.6 mg 2023 Active 2023 81955 78433 1 Once daily By Mouth False MediHoney HCS 4 1/2in X 4 1/2in bandage Cleanse area with NSS, apply one medihoney hydrocolloid dressing, non adherent dressing, kerlix secure with paper tape daily. For wound stage III 1 2023 Active 2023 96406 73520 1 Once daily Topica l False Problems Code Description Start Date End Date Status D64.9 Anemia, unspecified 08/25/2024 Activ e I25.10 Atherosclerotic hear t disease of [place] coronary artery without angina pectoris 08/25/2024 Active [...] weight Temperature SpO2 Blood Sugar Pulse Respirations 17394 8 67.00 mm[Hg] - Sitting 145.00 mm[Hg] - Sitting 98.50 Forehead Scan 96.00 % 81.00/ min 16.00/min 78776 004 87419 2 67.00 mm[Hg] - Sitting 145.00 mm[Hg] - Sitting 98.50 Tympanic 81.00/ min 16.00/min 25818 004 95838 5 56.00 mm[Hg] - Sitting 142.00 mm[Hg] - Sitting 136.40 NI 100.20 Tympanic 96.00 % 92.00/ min 18.00/min 81156 004 20990 6 12444 004 49581 4 143.00 mg/dL 53340 0 97.80 Tympanic 005 67359 7 60.00 mm[Hg] - Sitting 140.00 mm[Hg] - Sitting 98.00 Tympanic 84.00/ min 18.00/min 68919 005 65850 0 63.00 mm[Hg] - Sitting 141.00 mm[Hg] - Sitting 98.20 Tympanic 92.00 % 63.00/ min 16.00/min 23722 005 69516 8 69.00 mm[Hg] - Sitting 106.00 mm[Hg] - Sitting 97.20 Tympanic 96494 005 61774 7 69.00/ min 16.00/min 79785 005 98380 3 69.00 mm[Hg] - Sitting 106.00 mm[Hg] - Sitting 98.20 Tympanic 69.00/ min 16.00/min 00958 005 70882 1 367.00 mg/dL 30945 005 12612 2 97.20 Tympanic 98953 005 39604 4 97.20 Tympanic 62397 005 99937 0 69.00 mm[Hg] - Sitting 106.00 mm[Hg] - Sitting 69.00/ min 29968 005 78997 3 452.00 mg/dL 47515 005 50936 3 452.00 mg/dL 22349 005 73306 5 352.00 mg/dL 52012 005 67133 3 352.00 mg/dL 07725 005 89805 7 98.20 Tympanic 29495 005 77291 3 101.00 mg/dL 99801 005 60510 8 101.00 mg/dL 14648 006 54579 4 66.00 mm[Hg] - Sitting 107.00 mm[Hg] - Sitting 98.00 Tympanic 66.00/ min 18.00/min 13219 006 85669 0 62.00 mm[Hg] - Sitting 162.00 mm[Hg] - Sitting 98.20 Tympanic 96.00 % 60.00/ min 16.00/min 85490 006 18326 4 62.00 mm[Hg] - Sitting 162.00 mm[Hg] - Sitting 98.00 Tympanic 70.00/ min 18.00/min 72313 006 85315 8 62.00 mm[Hg] - Sitting 162.00 mm[Hg] - Sitting 98.20 Tympanic 70.00/ min 18.00/min 54744 006 13494 2 66.00 mm[Hg] - Sitting 132.00 mm[Hg] - Sitting 98.60 Tympanic 74.00/ min 16.00/min 95262 006 77801 5 159.00 mg/dL 24194 006 48044 1 159.00 mg/dL 70620 006 46629 8 98.00 Tympanic 55890 006 44957 2 62.00 mm[Hg] - Sitting 162.00 mm[Hg] - Sitting 70.00/ min 33645 006 84217 7 264.00 mg/dL 54728 006 80350 7 264.00 mg/dL 33997 006 15945 4 196.00 mg/dL 97937 006 31170 3 98.20 Tympanic 04941 006 97804 6 271.00 mg/dL 76697 007 99530 3 97.20 Tympanic 23343 007 84830 2 63.00 mm[Hg] - Sitting 132.00 mm[Hg] - Sitting 98.50 Tympanic 94.00 % 66.00/ min 16.00/min 43492 007 96570 5 188.00 mg/dL 09442 007 34845 2 188.00 mg/dL 32034 007 64552 2 188.00 mg/dL 46536 007 82921 7 97.20 Tympanic 05749 007 56184 6 97.20 Tympanic 93374 007 84809 5 67.00 mm[Hg] - Sitting 152.00 mm[Hg] - Sitting 68.00/ min 99361 007 65702 0 141.00 mg/dL 25064 007 57346 3 141.00 mg/dL 21212 007 04116 1 366.00 mg/dL 83176 007 43965 7 366.00 mg/dL 97751 007 43503 7 98.00 Tympanic 07116 007 28207 6 324.00 mg/dL 49715 007 11051 3 98.00 Tympanic 22996 007 67221 7 324.00 mg/dL 60239 008 59927 0 98.00 Tympanic 44325 008 78785 2 97.90 Tympanic 76706 008 00130 0 98.20 Tympanic 39397 008 00523 0 73.00 mm[Hg] - Sitting 156.00 mm[Hg] - Sitting 98.60 Tympanic 99.00 % 66.00/ min 20.00/min 19883 008 58850 5 137.00 mg/dL 89224 008 05695 7 137.00 mg/dL 68108 008 98455 2 97.90 Tympanic 46674 008 12538 1 137.00 mg/dL 75572 008 29494 8 97.90 Tympanic 88233 008 04449 5 67.00 mm[Hg] - Sitting 124.00 /min 62118 008 80442 6 212.00 mg/dL 90101 008 04582 6 212.00 mg/dL 76455 008 27212 9 317.00 mg/dL 57324 008 26721 4 317.00 mg/dL 57147 008 65087 8 252.00 mg/dL 17474 008 48125 0 98.70 Tympanic 52498 008 14355 7 252.00 mg/dL 63119 008 95181 3 98.70 Tympanic 29411 009 69967 9 98.70 Tympanic 50994 009 64595 3 98.20 Tympanic 74991 009 96910 5 98.40 Tympanic 06721 009 67337 1 255.00 mg/dL 61879 009 45382 4 255.00 mg/dL 74424 009 78954 5 98.20 Tympanic 51578 009 85151 0 255.00 mg/dL 43112 009 91842 0 98.20 Tympanic 23180 009 09246 4 63.00 mm[Hg] - Lying Down 102.00 mm[Hg] - Lying Down 58.00/ min 12797 009 17163 0 167.00 mg/dL 81860 009 55349 1 167.00 mg/dL 87807 009 61626 2 164.00 mg/dL 75336 009 81450 1 164.00 mg/dL 37130 009 51704 5 208.00 mg/dL
--- OUTSIDE RECORDS SUMMARY | 2024-10-03 11:20 | External Medical Summary | Continuity Of Care Document ---
Author Name Unknown Address [address] [address] Organization [facility] () Care Team Providers Care Client Solutions Manager Name Role Phone DO Machado Amy Primary Care Provider [phone] Allergies Allergy Reaction Start Date End Date [...] 3 0.1 mL 08/29 Inactiv e 2023 67750 77333 0 1 time Intrad ermal False Tubersol 5 tub. unit/0.1 mL intradermal injection solution [Tuberculin PPD] 0.1mL Intradermal 1 time For PPD 2nd Step Give 2nd Step PPD Day 1 and Read results Day 3 (schedule 7 days after 1st READ) 0.1mL 09/08 Active 2023 89131 95543 0 1 time Intrad ermal False Humalog [...] order For Diabetes 08/25 Inactiv e 2023 48895 99076 9 4 times a day Subcut aneous False Aspirin 325 mg tablet [generic] 325 By Mouth Twice daily For Anticoagulati on 325 09/25 Active 2023 57302 44424 1 Twice daily By Mouth False Ferrous sulfate 325 mg (65 mg iron) tablet [generic] 325 By Mouth Once daily For anemia 325 2023 Active 2023 06248 80750 5 Once daily By Mouth False Linezolid 600 mg tablet [generic] 600 mg By Mouth Every 12 hours For MRSA INFECTION L BKA 600 mg 08/25 Inactiv e 2023 56361 01709 1 Every 12 hours By Mouth False Cefpodoxime 200 mg tablet [generic] 400 mg By Mouth Twice daily For MRSA INFECTION L BKA 400 mg 08/25 Inactiv e 2023 70474 65873 0 Twice daily By Mouth False Coenzyme Q10 100 mg tablet [generic] 100 mg By Mouth Once daily For SUPP 100 mg 2023 Active 2023 52697 73810 0 Once daily By Mouth False Levothyroxi ne 50 mcg tablet [generic] 50mcg By Mouth Once daily For hypothyroidis m 50mcg 2023 Active 2023 81770 51286 0 Once daily By Mouth False One A Day Men Complete 240 mcg-25 mcg-300 mcg tablet 1 tab By Mouth Once daily For supplement 1 tab 2023 Active 2023 51805 60169 1 Once daily By Mouth False Cholecalcif adalberto (vitamin D3) 50 mcg (2,000 unit) tablet [generic] 1 TAB By Mouth Once daily For SUPP 1 TAB 2023 Active 2023 83822 84739 1 Once daily By Mouth False Cetirizine 10 mg tablet [generic] 1 TAB By Mouth At bedtime For Allergies 1 TAB 2023 Active 2023 45221 67343 0 At bedtime By Mouth False Timolol maleate 0.25 % eye drops [generic] 1 drop Both Eyes Twice daily For glaucoma 1 drop 2023 Active 2023 04675 17336 5 Twice daily Both Eyes False Alendronate 35 mg tablet [generic] 35mg By Mouth Every week For SIADH 35mg 2023 Active 2023 13455 48247 5 Every week By Mouth False Lantus Solostar U-100 Insulin 100 unit/mL (3 mL) subcutaneou s pen 18 units Subcutaneous Every morning For DIABETES 18 units 08/25 Inactiv e 2023 78171 51139 0 Every morning Subcut aneous False Lantus Solostar U-100 Insulin 100 unit/mL (3 mL) subcutaneou s pen 18 units Subcutaneous Every morning For DIABETES 18 units 2023 Active 2023 67980 09703 0 Every morning Subcut aneous False Linezolid 600 mg tablet [generic] 600 mg By Mouth Every 12 hours For MRSA INFECTION L BKA 600 mg 08/28 Inactiv e 2023 11020 49559 1 Every 12 hours By Mouth False [...] one-time order For Diabetes 2023 Active 2023 13558 02147 9 4 times a day Subcut aneous False Cefpodoxime 200 mg tablet [generic] 400 mg By Mouth Twice daily For MRSA INFECTION L BKA 400 mg 08/28 Inactiv e 2023 54972 69253 0 Twice daily By Mouth False Brimonidine 0.1 % eye drops [generic] 1 drop Both Eyes Twice daily For glaucoma 1 drop 2023 Active 2023 20122 04705 0 Twice daily Both Eyes False Metoprolol succinate ER 50 mg tablet,exte nded release 24 hr [generic] 50 mg By Mouth Once daily HOLD FOR SBP <100, or pulse <60 For HTN 50 mg 2023 Active 2023 51044 35528 1 Once daily By Mouth False Amlodipine 2.5 mg tablet [generic] 2.5 mg By Mouth Once daily For HTN 2.5 mg 2023 Active 2023 07823 78038 5 Once daily By Mouth False Docusate sodium 100 mg capsule [generic] 100mg By Mouth Twice daily as needed For constipation HOLD FOR LOOSE STOOLS 100mg 2023 Active 2023 97008 82551 1 Twice daily as needed By Mouth False Atorvastati n 40 mg tablet [generic] 40mg By Mouth Once daily For HDL 40mg 08/26 Inactiv e 2023 75841 07774 5 Once daily By Mouth False Tylenol 325 mg tablet 2 tabs By Mouth Every 4 hours as needed For Pain DO NOT EXCEED 3000 MG APAP/24 Hours 2 tabs 2023 Active 2023 13621 89476 0 Every 4 hours as needed By Mouth False Tylenol 325 mg tablet 2 tabs By Mouth Every 4 hours as needed For Fever >100 DO NOT EXCEED 3000 MG APAP/24 Hours 2 tabs 2023 Active 2023 05594 24690 0 Every 4 hours as needed By Mouth False Dulcolax (bisacodyl) 10 mg rectal suppository One Suppository per rectum PRN if Milk of Magnisia ineffective. Give on day 5 of no BM 1 sup 2023 Active 2023 23117 90519 1 Daily as needed Rectal False Fleet Enema 19 gram-7 gram/118 mL Administer per rectum PRN one time if dulcolax suppository not effective. Give on day 6 of no BM 1 2023 Active 2023 32579 65288 6 Daily as needed Rectal False Dextrose 50 % in water (D50W) intravenous solution [generic] Dextrose 50% evonne 20-50 ml (slow push) Intravenous if Glucagon not effective after 15 minutes. CALL 911 for ED Evaluation. 50% evonne 2023 Active 2023 79222 73807 9 Intrav enous False Glucagon (HCl) Emergency Kit 1 mg solution for injection Administer Glucagon 1 mg Intramuscular if 15 minutes after GLucose Gel is administered Glucose remains less than 70 1 mg 2023 Active 2023 76788 08545 2 Intram uscula r False Glucose Gel 40 % oral gel [Dextrose] PRN If resident is unable to swallow (with or without symptoms) and Glucose results less than 70 give GLucose 40% Gel 1 tube orally - Recheck Glucose 15 minutes after administratio n. 1 tube 2023 Active 2023 83113 17221 8 By Mouth False Milk of Magnesia 400 mg/5 mL oral suspension [Magnesium hydroxide] PRN 30ml By Mouth Daily as needed for constipation one time daily if no BM, on day 4 of no BM (PRN refer to instructions) For Constipation 30 mL 2023 Active 2023 42031 51379 6 Daily as needed By Mouth False Atorvastati n 40 mg tablet [generic] 08/26 Inactiv e 2023 18192 94658 5 Atorvastati n 40 mg tablet [generic] 40mg By Mouth Once daily For HDL 40mg 2023 Active 2023 55695 77091 5 Once daily By Mouth False Insulin aspart (U-100) 100 unit/mL (3 mL) subcutaneou s pen [generic] 15 units Subcutaneous 1 time For dm 15 units 08/26 Inactiv e 2023 98158 70678 5 1 time Subcut aneous False Humalog KwikPen (U-100) Insulin 100 unit/mL subcutaneou s 15 units Subcutaneous 1 time For dm 15 units 08/27 Inactiv e 2023 33330 86275 9 1 time Subcut aneous False Linezolid 600 mg tablet [generic] 600 mg By Mouth Every 12 hours For MRSA INFECTION L BKA 600 mg 09/06 Active 2023 34139 76122 1 Every 12 hours By Mouth False Cefpodoxime 200 mg tablet [generic] 400 mg By Mouth Twice daily For MRSA INFECTION L BKA 400 mg 08/31 Active 2023 84051 39268 0 Twice daily By Mouth False Senna 8.6 mg tablet 8.6 mg By Mouth Once daily For Constipation 8.6 mg 2023 Active 2023 30073 48242 1 Once daily By Mouth False MediHoney HCS 4 1/2in X 4 1/2in bandage Cleanse area with NSS, apply one medihoney hydrocolloid dressing, non adherent dressing, kerlix secure with paper tape daily. For wound stage III 1 2023 Active 2023 07705 40227 1 Once daily Topica l False Problems Code Description Start Date End Date Status D64.9 Anemia, unspecified 08/25/2024 Activ e I25.10 Atherosclerotic hear t disease of [place] coronary artery without angina pectoris 08/25/2024 Active [...] weight Temperature SpO2 Blood Sugar Pulse Respirations 42574 8 67.00 mm[Hg] - Sitting 145.00 mm[Hg] - Sitting 98.50 Forehead Scan 96.00 % 81.00/ min 16.00/min 12322 004 44693 2 67.00 mm[Hg] - Sitting 145.00 mm[Hg] - Sitting 98.50 Tympanic 81.00/ min 16.00/min 51031 004 61175 5 56.00 mm[Hg] - Sitting 142.00 mm[Hg] - Sitting 136.40 NI 100.20 Tympanic 96.00 % 92.00/ min 18.00/min 33425 004 19181 6 03924 004 81538 4 143.00 mg/dL 38363 0 97.80 Tympanic 005 34663 7 60.00 mm[Hg] - Sitting 140.00 mm[Hg] - Sitting 98.00 Tympanic 84.00/ min 18.00/min 86856 005 04677 0 63.00 mm[Hg] - Sitting 141.00 mm[Hg] - Sitting 98.20 Tympanic 92.00 % 63.00/ min 16.00/min 01990 005 90841 8 69.00 mm[Hg] - Sitting 106.00 mm[Hg] - Sitting 97.20 Tympanic 99945 005 86896 7 69.00/ min 16.00/min 98313 005 43648 3 69.00 mm[Hg] - Sitting 106.00 mm[Hg] - Sitting 98.20 Tympanic 69.00/ min 16.00/min 55302 005 14653 1 367.00 mg/dL 16381 005 99706 2 97.20 Tympanic 27506 005 79967 4 97.20 Tympanic 74469 005 70683 0 69.00 mm[Hg] - Sitting 106.00 mm[Hg] - Sitting 69.00/ min 88021 005 91460 3 452.00 mg/dL 72432 005 86822 3 452.00 mg/dL 30470 005 63532 5 352.00 mg/dL 69872 005 19660 3 352.00 mg/dL 83032 005 14762 7 98.20 Tympanic 25813 005 58132 3 101.00 mg/dL 44947 005 48444 8 101.00 mg/dL 02812 006 27699 4 66.00 mm[Hg] - Sitting 107.00 mm[Hg] - Sitting 98.00 Tympanic 66.00/ min 18.00/min 53898 006 33147 0 62.00 mm[Hg] - Sitting 162.00 mm[Hg] - Sitting 98.20 Tympanic 96.00 % 60.00/ min 16.00/min 07067 006 09095 4 62.00 mm[Hg] - Sitting 162.00 mm[Hg] - Sitting 98.00 Tympanic 70.00/ min 18.00/min 69157 006 82121 8 62.00 mm[Hg] - Sitting 162.00 mm[Hg] - Sitting 98.20 Tympanic 70.00/ min 18.00/min 98408 006 29906 2 66.00 mm[Hg] - Sitting 132.00 mm[Hg] - Sitting 98.60 Tympanic 74.00/ min 16.00/min 09499 006 24404 5 159.00 mg/dL 54264 006 42306 1 159.00 mg/dL 19787 006 42650 8 98.00 Tympanic 37897 006 29612 2 62.00 mm[Hg] - Sitting 162.00 mm[Hg] - Sitting 70.00/ min 29677 006 47960 7 264.00 mg/dL 22356 006 96107 7 264.00 mg/dL 47923 006 80564 4 196.00 mg/dL 53867 006 65111 3 98.20 Tympanic 12573 006 37670 6 271.00 mg/dL 83307 007 74339 3 97.20 Tympanic 02352 007 30852 2 63.00 mm[Hg] - Sitting 132.00 mm[Hg] - Sitting 98.50 Tympanic 94.00 % 66.00/ min 16.00/min 38429 007 11026 5 188.00 mg/dL 05486 007 16541 2 188.00 mg/dL 54196 007 06666 2 188.00 mg/dL 87949 007 27130 7 97.20 Tympanic 12383 007 87495 6 97.20 Tympanic 41087 007 49099 5 67.00 mm[Hg] - Sitting 152.00 mm[Hg] - Sitting 68.00/ min 22899 007 97981 0 141.00 mg/dL 58326 007 83503 3 141.00 mg/dL 76152 007 69744 1 366.00 mg/dL 52289 007 95358 7 366.00 mg/dL 97450 007 37918 7 98.00 Tympanic 54313 007 43557 6 324.00 mg/dL 45912 007 72913 3 98.00 Tympanic 47596 007 00545 7 324.00 mg/dL 69394 008 45053 0 98.00 Tympanic 18784 008 10442 2 97.90 Tympanic 26479 008 41328 0 98.20 Tympanic 38883 008 71509 0 73.00 mm[Hg] - Sitting 156.00 mm[Hg] - Sitting 98.60 Tympanic 99.00 % 66.00/ min 20.00/min 61818 008 39511 5 137.00 mg/dL 04633 008 07830 7 137.00 mg/dL 45317 008 92511 2 97.90 Tympanic 37454 008 49147 1 137.00 mg/dL 05017 008 02604 8 97.90 Tympanic 26649 008 57314 5 67.00 mm[Hg] - Sitting 124.00 /min 30887 008 64185 6 212.00 mg/dL 48990 008 85091 6 212.00 mg/dL 61898 008 68145 9 317.00 mg/dL 90825 008 98272 4 317.00 mg/dL 12819 008 48116 8 252.00 mg/dL 22682 008 42514 0 98.70 Tympanic 85802 008 75854 7 252.00 mg/dL 65470 008 91515 3 98.70 Tympanic 36883 009 90997 9 98.70 Tympanic 58284 009 64971 1 255.00 mg/dL 58404 009 90343 4 255.00 mg/dL 09542 009 82257 5 98.20 Tympanic 56665 009 05986 0 255.00 mg/dL 91683 009 16610 0 98.20 Tympanic 48331 009 68894 4 63.00 mm[Hg] - Lying Down 102.00 mm[Hg] - Lying Down 58.00/ min 65635 009 59993 0 167.00 mg/dL 43239 009 27336 1 167.00 mg/dL 44872 009 17625 2 164.00 mg/dL 63382 009 51524 1 164.00 mg/dL
--- OUTSIDE RECORDS SUMMARY | 2024-10-03 11:20 | External Medical Summary | Continuity Of Care Document ---
Author Name Unknown Address [address] [address] Organization [facility] () Care Team Providers Care Food Preparer Name Role Phone DO Machado Amy Primary Care Provider [phone] Allergies Allergy Reaction Start Date End Date [...] 3 0.1 mL 08/29 Inactiv e 2023 23389 92023 0 1 time Intrad ermal False Tubersol 5 tub. unit/0.1 mL intradermal injection solution [Tuberculin PPD] 0.1mL Intradermal 1 time For PPD 2nd Step Give 2nd Step PPD Day 1 and Read results Day 3 (schedule 7 days after 1st READ) 0.1mL 09/08 Active 2023 19585 98567 0 1 time Intrad ermal False Humalog [...] order For Diabetes 08/25 Inactiv e 2023 61508 12847 9 4 times a day Subcut aneous False Aspirin 325 mg tablet [generic] 325 By Mouth Twice daily For Anticoagulati on 325 09/25 Active 2023 62461 23793 1 Twice daily By Mouth False Ferrous sulfate 325 mg (65 mg iron) tablet [generic] 325 By Mouth Once daily For anemia 325 2023 Active 2023 35396 75587 5 Once daily By Mouth False Linezolid 600 mg tablet [generic] 600 mg By Mouth Every 12 hours For MRSA INFECTION L BKA 600 mg 08/25 Inactiv e 2023 79276 51995 1 Every 12 hours By Mouth False Cefpodoxime 200 mg tablet [generic] 400 mg By Mouth Twice daily For MRSA INFECTION L BKA 400 mg 08/25 Inactiv e 2023 06444 18774 0 Twice daily By Mouth False Coenzyme Q10 100 mg tablet [generic] 100 mg By Mouth Once daily For SUPP 100 mg 2023 Active 2023 26872 67711 0 Once daily By Mouth False Levothyroxi ne 50 mcg tablet [generic] 50mcg By Mouth Once daily For hypothyroidis m 50mcg 2023 Active 2023 29017 69589 0 Once daily By Mouth False One A Day Men Complete 240 mcg-25 mcg-300 mcg tablet 1 tab By Mouth Once daily For supplement 1 tab 2023 Active 2023 02455 27673 1 Once daily By Mouth False Cholecalcif adalberto (vitamin D3) 50 mcg (2,000 unit) tablet [generic] 1 TAB By Mouth Once daily For SUPP 1 TAB 2023 Active 2023 57636 59808 1 Once daily By Mouth False Cetirizine 10 mg tablet [generic] 1 TAB By Mouth At bedtime For Allergies 1 TAB 2023 Active 2023 06946 86423 0 At bedtime By Mouth False Timolol maleate 0.25 % eye drops [generic] 1 drop Both Eyes Twice daily For glaucoma 1 drop 2023 Active 2023 22538 00675 5 Twice daily Both Eyes False Alendronate 35 mg tablet [generic] 35mg By Mouth Every week For SIADH 35mg 2023 Active 2023 32243 23973 5 Every week By Mouth False Lantus Solostar U-100 Insulin 100 unit/mL (3 mL) subcutaneou s pen 18 units Subcutaneous Every morning For DIABETES 18 units 08/25 Inactiv e 2023 05269 68683 0 Every morning Subcut aneous False Lantus Solostar U-100 Insulin 100 unit/mL (3 mL) subcutaneou s pen 18 units Subcutaneous Every morning For DIABETES 18 units 2023 Active 2023 51904 09079 0 Every morning Subcut aneous False Linezolid 600 mg tablet [generic] 600 mg By Mouth Every 12 hours For MRSA INFECTION L BKA 600 mg 08/28 Inactiv e 2023 48777 47894 1 Every 12 hours By Mouth False [...] one-time order For Diabetes 2023 Active 2023 59374 47711 9 4 times a day Subcut aneous False Cefpodoxime 200 mg tablet [generic] 400 mg By Mouth Twice daily For MRSA INFECTION L BKA 400 mg 08/28 Inactiv e 2023 01475 44928 0 Twice daily By Mouth False Brimonidine 0.1 % eye drops [generic] 1 drop Both Eyes Twice daily For glaucoma 1 drop 2023 Active 2023 77195 63162 0 Twice daily Both Eyes False Metoprolol succinate ER 50 mg tablet,exte nded release 24 hr [generic] 50 mg By Mouth Once daily HOLD FOR SBP <100, or pulse <60 For HTN 50 mg 2023 Active 2023 50221 83695 1 Once daily By Mouth False Amlodipine 2.5 mg tablet [generic] 2.5 mg By Mouth Once daily For HTN 2.5 mg 2023 Active 2023 72736 15843 5 Once daily By Mouth False Docusate sodium 100 mg capsule [generic] 100mg By Mouth Twice daily as needed For constipation HOLD FOR LOOSE STOOLS 100mg 2023 Active 2023 89545 31038 1 Twice daily as needed By Mouth False Atorvastati n 40 mg tablet [generic] 40mg By Mouth Once daily For HDL 40mg 08/26 Inactiv e 2023 57661 54041 5 Once daily By Mouth False Tylenol 325 mg tablet 2 tabs By Mouth Every 4 hours as needed For Pain DO NOT EXCEED 3000 MG APAP/24 Hours 2 tabs 2023 Active 2023 75635 14873 0 Every 4 hours as needed By Mouth False Tylenol 325 mg tablet 2 tabs By Mouth Every 4 hours as needed For Fever >100 DO NOT EXCEED 3000 MG APAP/24 Hours 2 tabs 2023 Active 2023 04481 38200 0 Every 4 hours as needed By Mouth False Dulcolax (bisacodyl) 10 mg rectal suppository One Suppository per rectum PRN if Milk of Magnisia ineffective. Give on day 5 of no BM 1 sup 2023 Active 2023 14043 31150 1 Daily as needed Rectal False Fleet Enema 19 gram-7 gram/118 mL Administer per rectum PRN one time if dulcolax suppository not effective. Give on day 6 of no BM 1 2023 Active 2023 40478 53746 6 Daily as needed Rectal False Dextrose 50 % in water (D50W) intravenous solution [generic] Dextrose 50% eovnne 20-50 ml (slow push) Intravenous if Glucagon not effective after 15 minutes. CALL 911 for ED Evaluation. 50% evonne 2023 Active 2023 05644 71437 9 Intrav enous False Glucagon (HCl) Emergency Kit 1 mg solution for injection Administer Glucagon 1 mg Intramuscular if 15 minutes after GLucose Gel is administered Glucose remains less than 70 1 mg 2023 Active 2023 75260 84134 2 Intram uscula r False Glucose Gel 40 % oral gel [Dextrose] PRN If resident is unable to swallow (with or without symptoms) and Glucose results less than 70 give GLucose 40% Gel 1 tube orally - Recheck Glucose 15 minutes after administratio n. 1 tube 2023 Active 2023 54359 97274 8 By Mouth False Milk of Magnesia 400 mg/5 mL oral suspension [Magnesium hydroxide] PRN 30ml By Mouth Daily as needed for constipation one time daily if no BM, on day 4 of no BM (PRN refer to instructions) For Constipation 30 mL 2023 Active 2023 69496 20299 6 Daily as needed By Mouth False Atorvastati n 40 mg tablet [generic] 08/26 Inactiv e 2023 52443 74181 5 Atorvastati n 40 mg tablet [generic] 40mg By Mouth Once daily For HDL 40mg 2023 Active 2023 33908 37968 5 Once daily By Mouth False Insulin aspart (U-100) 100 unit/mL (3 mL) subcutaneou s pen [generic] 15 units Subcutaneous 1 time For dm 15 units 08/26 Inactiv e 2023 79321 69664 5 1 time Subcut aneous False Humalog KwikPen (U-100) Insulin 100 unit/mL subcutaneou s 15 units Subcutaneous 1 time For dm 15 units 08/27 Inactiv e 2023 23437 97776 9 1 time Subcut aneous False Linezolid 600 mg tablet [generic] 600 mg By Mouth Every 12 hours For MRSA INFECTION L BKA 600 mg 09/06 Active 2023 52801 16027 1 Every 12 hours By Mouth False Cefpodoxime 200 mg tablet [generic] 400 mg By Mouth Twice daily For MRSA INFECTION L BKA 400 mg 08/31 Active 2023 11852 18149 0 Twice daily By Mouth False MediHoney HCS 4 1/2in X 4 1/2in bandage Cleanse area with NSS, apply one medihoney hydrocolloid dressing, non adherent dressing, kerlix secure with paper tape daily. For wound stage III 1 2023 Active 2023 32863 73748 1 Once daily Topica l False Problems Code Description Start Date End Date Status D64.9 Anemia, unspecified 08/25/2024 Activ e I25.10 Atherosclerotic hear t disease of [place] coronary artery without angina pectoris 08/25/2024 Active [...] weight Temperature SpO2 Blood Sugar Pulse Respirations 38835 8 67.00 mm[Hg] - Sitting 145.00 mm[Hg] - Sitting 98.50 Forehead Scan 96.00 % 81.00/ min 16.00/min 86854 004 19094 2 67.00 mm[Hg] - Sitting 145.00 mm[Hg] - Sitting 98.50 Tympanic 81.00/ min 16.00/min 60506 004 50239 5 56.00 mm[Hg] - Sitting 142.00 mm[Hg] - Sitting 136.40 NI 100.20 Tympanic 96.00 % 92.00/ min 18.00/min 26755 004 09635 6 64002 004 44388 4 143.00 mg/dL 06497 0 97.80 Tympanic 005 65001 7 60.00 mm[Hg] - Sitting 140.00 mm[Hg] - Sitting 98.00 Tympanic 84.00/ min 18.00/min 29669 005 54962 0 63.00 mm[Hg] - Sitting 141.00 mm[Hg] - Sitting 98.20 Tympanic 92.00 % 63.00/ min 16.00/min 81829 005 02106 8 69.00 mm[Hg] - Sitting 106.00 mm[Hg] - Sitting 97.20 Tympanic 005 93926 7 69.00/ min 16.00/min 80194 005 61373 3 69.00 mm[Hg] - Sitting 106.00 mm[Hg] - Sitting 98.20 Tympanic 69.00/ min 16.00/min 67773 005 30961 1 367.00 mg/dL 46043 005 94488 2 97.20 Tympanic 00106 005 75522 4 97.20 Tympanic 34692 005 04548 0 69.00 mm[Hg] - Sitting 106.00 mm[Hg] - Sitting 69.00/ min 83598 005 22278 3 452.00 mg/dL 71386 005 17771 3 452.00 mg/dL 50292 005 12924 5 352.00 mg/dL 11636 005 16803 3 352.00 mg/dL 77680 005 00235 7 98.20 Tympanic 80199 005 3 101.00 mg/dL 52558 005 8 101.00 mg/dL 00678 006 87303 4 66.00 mm[Hg] - Sitting 107.00 mm[Hg] - Sitting 98.00 Tympanic 66.00/ min 18.00/min 89683 006 19850 0 62.00 mm[Hg] - Sitting 162.00 mm[Hg] - Sitting 98.20 Tympanic 96.00 % 60.00/ min 16.00/min 60858 006 18978 4 62.00 mm[Hg] - Sitting 162.00 mm[Hg] - Sitting 98.00 Tympanic 70.00/ min 18.00/min 85664 006 84294 8 62.00 mm[Hg] - Sitting 162.00 mm[Hg] - Sitting 98.20 Tympanic 70.00/ min 18.00/min 53049 006 11613 2 66.00 mm[Hg] - Sitting 132.00 mm[Hg] - Sitting 98.60 Tympanic 74.00/ min 16.00/min 73812 006 19164 5 159.00 mg/dL 21453 006 56601 1 159.00 mg/dL 87151 006 13896 8 98.00 Tympanic 36107 006 96920 2 62.00 mm[Hg] - Sitting 162.00 mm[Hg] - Sitting 70.00/ min 60836 006 01955 7 264.00 mg/dL 91282 006 02092 7 264.00 mg/dL 94271 006 91504 4 196.00 mg/dL 22536 006 94085 3 98.20 Tympanic 95885 006 50411 6 271.00 mg/dL 09517 007 24398 3 97.20 Tympanic 66817 007 74096 2 63.00 mm[Hg] - Sitting 132.00 mm[Hg] - Sitting 98.50 Tympanic 94.00 % 66.00/ min 16.00/min 07395 007 12300 5 188.00 mg/dL 08209 007 82225 2 188.00 mg/dL 28356 007 70414 2 188.00 mg/dL 50317 007 98572 7 97.20 Tympanic 05796 007 74852 6 97.20 Tympanic 33990 007 28248 5 67.00 mm[Hg] - Sitting 152.00 mm[Hg] - Sitting 68.00/ min 53907 007 07428 0 141.00 mg/dL 59507 007 16363 3 141.00 mg/dL 26382 007 95473 1 366.00 mg/dL 05769 007 51268 7 366.00 mg/dL 04677 007 24673 7 98.00 Tympanic 10027 007 98217 6 324.00 mg/dL 39371 007 88737 3 98.00 Tympanic 84282 007 19752 7 324.00 mg/dL 17134 008 53208 0 98.00 Tympanic 67730 008 94054 2 97.90 Tympanic 76793 008 08393 0 98.20 Tympanic 99093 008 72035 0 73.00 mm[Hg] - Sitting 156.00 mm[Hg] - Sitting 98.60 Tympanic 99.00 % 66.00/ min 20.00/min 58773 008 17800 5 137.00 mg/dL 07716 008 24174 7 137.00 mg/dL 55178 008 82458 2 97.90 Tympanic 99342 008 64657 1 137.00 mg/dL 80589 008 03578 8 97.90 Tympanic 95601 008 51164 5 67.00 mm[Hg] - Sitting 124.00 /min 97902 008 96283 6 212.00 mg/dL 33868 008 26117 6 212.00 mg/dL 88863 008 16259 9 317.00 mg/dL 96920 008 78296 4 317.00 mg/dL 79624 008 98025 8 252.00 mg/dL 01550 008 73791 0 98.70 Tympanic 86184 008 38873 7 252.00 mg/dL 07435 008 37361 3 98.70 Tympanic
--- OUTSIDE RECORDS SUMMARY | 2024-10-03 11:20 | External Medical Summary | Continuity Of Care Document ---
Author Name Unknown Address [address] [address] Organization [facility] () Care Team Providers Care Door To Door Salesperson Name Role Phone DO Machado Amy Primary Care Provider [phone] Allergies Allergy Reaction Start Date End Date [...] read results Day 3 0.1 mL 08/29 Active 2023 81622 57421 0 1 time Intrad ermal False Tubersol 5 tub. unit/0.1 mL intradermal injection solution [Tuberculin PPD] 0.1mL Intradermal 1 time For PPD 2nd Step Give 2nd Step PPD Day 1 and Read results Day 3 (schedule 7 days after 1st READ) 0.1mL 09/08 Active 2023 33592 03149 0 1 time Intrad ermal False Humalog [...] order For Diabetes 08/25 Inactiv e 2023 75792 65844 9 4 times a day Subcut aneous False Aspirin 325 mg tablet [generic] 325 By Mouth Twice daily For Anticoagulati on 325 09/25 Active 2023 90721 33860 1 Twice daily By Mouth False Ferrous sulfate 325 mg (65 mg iron) tablet [generic] 325 By Mouth Once daily For anemia 325 2023 Active 2023 53860 46738 5 Once daily By Mouth False Linezolid 600 mg tablet [generic] 600 mg By Mouth Every 12 hours For MRSA INFECTION L BKA 600 mg 08/25 Inactiv e 2023 51436 46195 1 Every 12 hours By Mouth False Cefpodoxime 200 mg tablet [generic] 400 mg By Mouth Twice daily For MRSA INFECTION L BKA 400 mg 08/25 Inactiv e 2023 06051 65912 0 Twice daily By Mouth False Coenzyme Q10 100 mg tablet [generic] 100 mg By Mouth Once daily For SUPP 100 mg 2023 Active 2023 93544 64245 0 Once daily By Mouth False Levothyroxi ne 50 mcg tablet [generic] 50mcg By Mouth Once daily For hypothyroidis m 50mcg 2023 Active 2023 10097 53740 0 Once daily By Mouth False One A Day Men Complete 240 mcg-25 mcg-300 mcg tablet 1 tab By Mouth Once daily For supplement 1 tab 2023 Active 2023 88277 17298 1 Once daily By Mouth False Cholecalcif adalberto (vitamin D3) 50 mcg (2,000 unit) tablet [generic] 1 TAB By Mouth Once daily For SUPP 1 TAB 2023 Active 2023 58942 26010 1 Once daily By Mouth False Cetirizine 10 mg tablet [generic] 1 TAB By Mouth At bedtime For Allergies 1 TAB 2023 Active 2023 68854 57283 0 At bedtime By Mouth False Timolol maleate 0.25 % eye drops [generic] 1 drop Both Eyes Twice daily For glaucoma 1 drop 2023 Active 2023 41282 53953 5 Twice daily Both Eyes False Alendronate 35 mg tablet [generic] 35mg By Mouth Every week For SIADH 35mg 2023 Active 2023 77775 93043 5 Every week By Mouth False Lantus Solostar U-100 Insulin 100 unit/mL (3 mL) subcutaneou s pen 18 units Subcutaneous Every morning For DIABETES 18 units 08/25 Inactiv e 2023 96387 57152 0 Every morning Subcut aneous False Lantus Solostar U-100 Insulin 100 unit/mL (3 mL) subcutaneou s pen 18 units Subcutaneous Every morning For DIABETES 18 units 2023 Active 2023 27245 18253 0 Every morning Subcut aneous False Linezolid 600 mg tablet [generic] 600 mg By Mouth Every 12 hours For MRSA INFECTION L BKA 600 mg 08/28 Inactiv e 2023 83018 02224 1 Every 12 hours By Mouth False [...] one-time order For Diabetes 2023 Active 2023 54727 03845 9 4 times a day Subcut aneous False Cefpodoxime 200 mg tablet [generic] 400 mg By Mouth Twice daily For MRSA INFECTION L BKA 400 mg 08/28 Inactiv e 2023 42425 83136 0 Twice daily By Mouth False Brimonidine 0.1 % eye drops [generic] 1 drop Both Eyes Twice daily For glaucoma 1 drop 2023 Active 2023 04883 85404 0 Twice daily Both Eyes False Metoprolol succinate ER 50 mg tablet,exte nded release 24 hr [generic] 50 mg By Mouth Once daily HOLD FOR SBP <100, or pulse <60 For HTN 50 mg 2023 Active 2023 78007 65807 1 Once daily By Mouth False Amlodipine 2.5 mg tablet [generic] 2.5 mg By Mouth Once daily For HTN 2.5 mg 2023 Active 2023 13136 72056 5 Once daily By Mouth False Docusate sodium 100 mg capsule [generic] 100mg By Mouth Twice daily as needed For constipation HOLD FOR LOOSE STOOLS 100mg 2023 Active 2023 11289 76523 1 Twice daily as needed By Mouth False Atorvastati n 40 mg tablet [generic] 40mg By Mouth Once daily For HDL 40mg 08/26 Inactiv e 2023 35310 95890 5 Once daily By Mouth False Tylenol 325 mg tablet 2 tabs By Mouth Every 4 hours as needed For Pain DO NOT EXCEED 3000 MG APAP/24 Hours 2 tabs 2023 Active 2023 78252 78236 0 Every 4 hours as needed By Mouth False Tylenol 325 mg tablet 2 tabs By Mouth Every 4 hours as needed For Fever >100 DO NOT EXCEED 3000 MG APAP/24 Hours 2 tabs 2023 Active 2023 12429 40788 0 Every 4 hours as needed By Mouth False Dulcolax (bisacodyl) 10 mg rectal suppository One Suppository per rectum PRN if Milk of Magnisia ineffective. Give on day 5 of no BM 1 sup 2023 Active 2023 39644 18623 1 Daily as needed Rectal False Fleet Enema 19 gram-7 gram/118 mL Administer per rectum PRN one time if dulcolax suppository not effective. Give on day 6 of no BM 1 2023 Active 2023 57481 56540 6 Daily as needed Rectal False Dextrose 50 % in water (D50W) intravenous solution [generic] Dextrose 50% evonne 20-50 ml (slow push) Intravenous if Glucagon not effective after 15 minutes. CALL 911 for ED Evaluation. 50% evonne 2023 Active 2023 72390 17591 9 Intrav enous False Glucagon (HCl) Emergency Kit 1 mg solution for injection Administer Glucagon 1 mg Intramuscular if 15 minutes after GLucose Gel is administered Glucose remains less than 70 1 mg 2023 Active 2023 26552 93318 2 Intram uscula r False Glucose Gel 40 % oral gel [Dextrose] PRN If resident is unable to swallow (with or without symptoms) and Glucose results less than 70 give GLucose 40% Gel 1 tube orally - Recheck Glucose 15 minutes after administratio n. 1 tube 2023 Active 2023 34744 02410 8 By Mouth False Milk of Magnesia 400 mg/5 mL oral suspension [Magnesium hydroxide] PRN 30ml By Mouth Daily as needed for constipation one time daily if no BM, on day 4 of no BM (PRN refer to instructions) For Constipation 30 mL 2023 Active 2023 19872 21679 6 Daily as needed By Mouth False Atorvastati n 40 mg tablet [generic] 08/26 Inactiv e 2023 68822 70877 5 Atorvastati n 40 mg tablet [generic] 40mg By Mouth Once daily For HDL 40mg 2023 Active 2023 73414 70896 5 Once daily By Mouth False Insulin aspart (U-100) 100 unit/mL (3 mL) subcutaneou s pen [generic] 15 units Subcutaneous 1 time For dm 15 units 08/26 Inactiv e 2023 24574 19300 5 1 time Subcut aneous False Humalog KwikPen (U-100) Insulin 100 unit/mL subcutaneou s 15 units Subcutaneous 1 time For dm 15 units 08/27 Inactiv e 2023 55220 40213 9 1 time Subcut aneous False Linezolid 600 mg tablet [generic] 600 mg By Mouth Every 12 hours For MRSA INFECTION L BKA 600 mg 09/06 Active 2023 38782 25269 1 Every 12 hours By Mouth False Cefpodoxime 200 mg tablet [generic] 400 mg By Mouth Twice daily For MRSA INFECTION L BKA 400 mg 08/31 Active 2023 92834 37815 0 Twice daily By Mouth False MediHoney HCS 4 1/2in X 4 1/2in bandage Cleanse area with NSS, apply one medihoney hydrocolloid dressing, non adherent dressing, kerlix secure with paper tape daily. For wound stage III 1 2023 Active 2023 22316 08086 1 Once daily Topica l False Problems Code Description Start Date End Date Status D64.9 Anemia, unspecified 08/25/2024 Activ e I25.10 Atherosclerotic hear t disease of [place] coronary artery without angina pectoris 08/25/2024 Active [...] weight Temperature SpO2 Blood Sugar Pulse Respirations 86179 8 67.00 mm[Hg] - Sitting 145.00 mm[Hg] - Sitting 98.50 Forehead Scan 96.00 % 81.00/ min 16.00/min 62691 004 77369 2 67.00 mm[Hg] - Sitting 145.00 mm[Hg] - Sitting 98.50 Tympanic 81.00/ min 16.00/min 47104 004 33801 5 56.00 mm[Hg] - Sitting 142.00 mm[Hg] - Sitting 136.40 NI 100.20 Tympanic 96.00 % 92.00/ min 18.00/min 96951 004 14388 6 004 35997 4 143.00 mg/dL 33495 0 97.80 Tympanic 005 36724 7 60.00 mm[Hg] - Sitting 140.00 mm[Hg] - Sitting 98.00 Tympanic 84.00/ min 18.00/min 62139 005 35757 0 63.00 mm[Hg] - Sitting 141.00 mm[Hg] - Sitting 98.20 Tympanic 92.00 % 63.00/ min 16.00/min 93266 005 93683 8 69.00 mm[Hg] - Sitting 106.00 mm[Hg] - Sitting 97.20 Tympanic 005 39097 7 69.00/ min 16.00/min 31720 005 59928 3 69.00 mm[Hg] - Sitting 106.00 mm[Hg] - Sitting 98.20 Tympanic 69.00/ min 16.00/min 79454 005 51220 1 367.00 mg/dL 10183 005 89221 2 97.20 Tympanic 47884 005 70150 4 97.20 Tympanic 89254 005 00491 0 69.00 mm[Hg] - Sitting 106.00 mm[Hg] - Sitting 69.00/ min 21294 005 07454 3 452.00 mg/dL 78764 005 58698 3 452.00 mg/dL 99156 005 72003 5 352.00 mg/dL 34720 005 23015 3 352.00 mg/dL 55629 005 68020 7 98.20 Tympanic 61386 005 3 101.00 mg/dL 62799 005 8 101.00 mg/dL 95896 006 24527 4 66.00 mm[Hg] - Sitting 107.00 mm[Hg] - Sitting 98.00 Tympanic 66.00/ min 18.00/min 98178 006 56772 0 62.00 mm[Hg] - Sitting 162.00 mm[Hg] - Sitting 98.20 Tympanic 96.00 % 60.00/ min 16.00/min 91815 006 40370 4 62.00 mm[Hg] - Sitting 162.00 mm[Hg] - Sitting 98.00 Tympanic 70.00/ min 18.00/min 05424 006 55122 8 62.00 mm[Hg] - Sitting 162.00 mm[Hg] - Sitting 98.20 Tympanic 70.00/ min 18.00/min 60815 006 66531 2 66.00 mm[Hg] - Sitting 132.00 mm[Hg] - Sitting 98.60 Tympanic 74.00/ min 16.00/min 20178 006 93052 5 159.00 mg/dL 81173 006 96573 1 159.00 mg/dL 38917 006 55147 8 98.00 Tympanic 65480 006 87028 2 62.00 mm[Hg] - Sitting 162.00 mm[Hg] - Sitting 70.00/ min 37044 006 05888 7 264.00 mg/dL 34491 006 10093 7 264.00 mg/dL 06112 006 51987 4 196.00 mg/dL 27330 006 54450 3 98.20 Tympanic 45171 006 58781 6 271.00 mg/dL 01475 007 68522 3 97.20 Tympanic 82904 007 74906 2 63.00 mm[Hg] - Sitting 132.00 mm[Hg] - Sitting 98.50 Tympanic 94.00 % 66.00/ min 16.00/min 62780 007 99240 5 188.00 mg/dL 57003 007 17241 2 188.00 mg/dL 72993 007 42887 2 188.00 mg/dL 03161 007 09376 7 97.20 Tympanic 49091 007 20022 6 97.20 Tympanic 11932 007 38037 5 67.00 mm[Hg] - Sitting 152.00 mm[Hg] - Sitting 68.00/ min 62237 007 73998 0 141.00 mg/dL 93946 007 37063 3 141.00 mg/dL 57376 007 75983 1 366.00 mg/dL 87054 007 26606 7 366.00 mg/dL
--- OUTSIDE RECORDS SUMMARY | 2024-10-03 11:20 | External Medical Summary | Continuity Of Care Document ---
Author Name Unknown Address [address] [address] Organization [facility] () Care Team Providers Care Combat Rifle Crewmember Name Role Phone DO Machado Amy Primary Care Provider [phone] Allergies Allergy Reaction Start Date End Date [...] 3 0.1 mL 08/29 Inactiv e 2023 93767 28749 0 1 time Intrad ermal False Tubersol 5 tub. unit/0.1 mL intradermal injection solution [Tuberculin PPD] 0.1mL Intradermal 1 time For PPD 2nd Step Give 2nd Step PPD Day 1 and Read results Day 3 (schedule 7 days after 1st READ) 0.1mL 09/08 Active 2023 02913 38911 0 1 time Intrad ermal False Humalog [...] order For Diabetes 08/25 Inactiv e 2023 30961 77958 9 4 times a day Subcut aneous False Aspirin 325 mg tablet [generic] 325 By Mouth Twice daily For Anticoagulati on 325 09/25 Active 2023 12900 87449 1 Twice daily By Mouth False Ferrous sulfate 325 mg (65 mg iron) tablet [generic] 325 By Mouth Once daily For anemia 325 2023 Active 2023 00887 90921 5 Once daily By Mouth False Linezolid 600 mg tablet [generic] 600 mg By Mouth Every 12 hours For MRSA INFECTION L BKA 600 mg 08/25 Inactiv e 2023 21564 52927 1 Every 12 hours By Mouth False Cefpodoxime 200 mg tablet [generic] 400 mg By Mouth Twice daily For MRSA INFECTION L BKA 400 mg 08/25 Inactiv e 2023 22828 69299 0 Twice daily By Mouth False Coenzyme Q10 100 mg tablet [generic] 100 mg By Mouth Once daily For SUPP 100 mg 2023 Active 2023 50354 76979 0 Once daily By Mouth False Levothyroxi ne 50 mcg tablet [generic] 50mcg By Mouth Once daily For hypothyroidis m 50mcg 2023 Active 2023 24995 96487 0 Once daily By Mouth False One A Day Men Complete 240 mcg-25 mcg-300 mcg tablet 1 tab By Mouth Once daily For supplement 1 tab 2023 Active 2023 03155 07217 1 Once daily By Mouth False Cholecalcif adalberto (vitamin D3) 50 mcg (2,000 unit) tablet [generic] 1 TAB By Mouth Once daily For SUPP 1 TAB 2023 Active 2023 12654 13454 1 Once daily By Mouth False Cetirizine 10 mg tablet [generic] 1 TAB By Mouth At bedtime For Allergies 1 TAB 2023 Active 2023 15524 11186 0 At bedtime By Mouth False Timolol maleate 0.25 % eye drops [generic] 1 drop Both Eyes Twice daily For glaucoma 1 drop 2023 Active 2023 54847 62258 5 Twice daily Both Eyes False Alendronate 35 mg tablet [generic] 35mg By Mouth Every week For SIADH 35mg 2023 Active 2023 63972 12520 5 Every week By Mouth False Lantus Solostar U-100 Insulin 100 unit/mL (3 mL) subcutaneou s pen 18 units Subcutaneous Every morning For DIABETES 18 units 08/25 Inactiv e 2023 59636 54266 0 Every morning Subcut aneous False Lantus Solostar U-100 Insulin 100 unit/mL (3 mL) subcutaneou s pen 18 units Subcutaneous Every morning For DIABETES 18 units 2023 Active 2023 95564 20726 0 Every morning Subcut aneous False Linezolid 600 mg tablet [generic] 600 mg By Mouth Every 12 hours For MRSA INFECTION L BKA 600 mg 08/28 Inactiv e 2023 52912 71788 1 Every 12 hours By Mouth False [...] one-time order For Diabetes 2023 Active 2023 29591 99045 9 4 times a day Subcut aneous False Cefpodoxime 200 mg tablet [generic] 400 mg By Mouth Twice daily For MRSA INFECTION L BKA 400 mg 08/28 Inactiv e 2023 20411 79340 0 Twice daily By Mouth False Brimonidine 0.1 % eye drops [generic] 1 drop Both Eyes Twice daily For glaucoma 1 drop 2023 Active 2023 13208 49839 0 Twice daily Both Eyes False Metoprolol succinate ER 50 mg tablet,exte nded release 24 hr [generic] 50 mg By Mouth Once daily HOLD FOR SBP <100, or pulse <60 For HTN 50 mg 2023 Active 2023 63724 25016 1 Once daily By Mouth False Amlodipine 2.5 mg tablet [generic] 2.5 mg By Mouth Once daily For HTN 2.5 mg 2023 Active 2023 87168 20981 5 Once daily By Mouth False Docusate sodium 100 mg capsule [generic] 100mg By Mouth Twice daily as needed For constipation HOLD FOR LOOSE STOOLS 100mg 2023 Active 2023 62371 40954 1 Twice daily as needed By Mouth False Atorvastati n 40 mg tablet [generic] 40mg By Mouth Once daily For HDL 40mg 08/26 Inactiv e 2023 48150 04987 5 Once daily By Mouth False Tylenol 325 mg tablet 2 tabs By Mouth Every 4 hours as needed For Pain DO NOT EXCEED 3000 MG APAP/24 Hours 2 tabs 2023 Active 2023 24316 38864 0 Every 4 hours as needed By Mouth False Tylenol 325 mg tablet 2 tabs By Mouth Every 4 hours as needed For Fever >100 DO NOT EXCEED 3000 MG APAP/24 Hours 2 tabs 2023 Active 2023 39405 37943 0 Every 4 hours as needed By Mouth False Dulcolax (bisacodyl) 10 mg rectal suppository One Suppository per rectum PRN if Milk of Magnisia ineffective. Give on day 5 of no BM 1 sup 2023 Active 2023 28318 25292 1 Daily as needed Rectal False Fleet Enema 19 gram-7 gram/118 mL Administer per rectum PRN one time if dulcolax suppository not effective. Give on day 6 of no BM 1 2023 Active 2023 77926 50842 6 Daily as needed Rectal False Dextrose 50 % in water (D50W) intravenous solution [generic] Dextrose 50% evonne 20-50 ml (slow push) Intravenous if Glucagon not effective after 15 minutes. CALL 911 for ED Evaluation. 50% evonne 2023 Active 2023 99988 17551 9 Intrav enous False Glucagon (HCl) Emergency Kit 1 mg solution for injection Administer Glucagon 1 mg Intramuscular if 15 minutes after GLucose Gel is administered Glucose remains less than 70 1 mg 2023 Active 2023 78141 76035 2 Intram uscula r False Glucose Gel 40 % oral gel [Dextrose] PRN If resident is unable to swallow (with or without symptoms) and Glucose results less than 70 give GLucose 40% Gel 1 tube orally - Recheck Glucose 15 minutes after administratio n. 1 tube 2023 Active 2023 38729 10250 8 By Mouth False Milk of Magnesia 400 mg/5 mL oral suspension [Magnesium hydroxide] PRN 30ml By Mouth Daily as needed for constipation one time daily if no BM, on day 4 of no BM (PRN refer to instructions) For Constipation 30 mL 2023 Active 2023 28879 56436 6 Daily as needed By Mouth False Atorvastati n 40 mg tablet [generic] 08/26 Inactiv e 2023 37669 47585 5 Atorvastati n 40 mg tablet [generic] 40mg By Mouth Once daily For HDL 40mg 2023 Active 2023 90888 90313 5 Once daily By Mouth False Insulin aspart (U-100) 100 unit/mL (3 mL) subcutaneou s pen [generic] 15 units Subcutaneous 1 time For dm 15 units 08/26 Inactiv e 2023 60088 08141 5 1 time Subcut aneous False Humalog KwikPen (U-100) Insulin 100 unit/mL subcutaneou s 15 units Subcutaneous 1 time For dm 15 units 08/27 Inactiv e 2023 22068 67997 9 1 time Subcut aneous False Linezolid 600 mg tablet [generic] 600 mg By Mouth Every 12 hours For MRSA INFECTION L BKA 600 mg 09/06 Active 2023 14169 55002 1 Every 12 hours By Mouth False Cefpodoxime 200 mg tablet [generic] 400 mg By Mouth Twice daily For MRSA INFECTION L BKA 400 mg 08/31 Active 2023 46651 07510 0 Twice daily By Mouth False Senna 8.6 mg tablet 8.6 mg By Mouth Once daily For Constipation 8.6 mg 2023 Active 2023 09193 73388 1 Once daily By Mouth False MediHoney HCS 4 1/2in X 4 1/2in bandage Cleanse area with NSS, apply one medihoney hydrocolloid dressing, non adherent dressing, kerlix secure with paper tape daily. For wound stage III 1 2023 Active 2023 14998 29110 1 Once daily Topica l False Problems Code Description Start Date End Date Status D64.9 Anemia, unspecified 08/25/2024 Activ e I25.10 Atherosclerotic hear t disease of [place] coronary artery without angina pectoris 08/25/2024 Active [...] weight Temperature SpO2 Blood Sugar Pulse Respirations 04699 8 67.00 mm[Hg] - Sitting 145.00 mm[Hg] - Sitting 98.50 Forehead Scan 96.00 % 81.00/ min 16.00/min 64026 004 73291 2 67.00 mm[Hg] - Sitting 145.00 mm[Hg] - Sitting 98.50 Tympanic 81.00/ min 16.00/min 73875 004 30568 5 56.00 mm[Hg] - Sitting 142.00 mm[Hg] - Sitting 136.40 NI 100.20 Tympanic 96.00 % 92.00/ min 18.00/min 89622 004 07820 6 57581 004 35421 4 143.00 mg/dL 09271 0 97.80 Tympanic 005 34276 7 60.00 mm[Hg] - Sitting 140.00 mm[Hg] - Sitting 98.00 Tympanic 84.00/ min 18.00/min 13376 005 52936 0 63.00 mm[Hg] - Sitting 141.00 mm[Hg] - Sitting 98.20 Tympanic 92.00 % 63.00/ min 16.00/min 60004 005 14090 8 69.00 mm[Hg] - Sitting 106.00 mm[Hg] - Sitting 97.20 Tympanic 01176 005 03977 7 69.00/ min 16.00/min 06938 005 72114 3 69.00 mm[Hg] - Sitting 106.00 mm[Hg] - Sitting 98.20 Tympanic 69.00/ min 16.00/min 73186 005 53720 1 367.00 mg/dL 95317 005 38217 2 97.20 Tympanic 09948 005 74738 4 97.20 Tympanic 44119 005 90382 0 69.00 mm[Hg] - Sitting 106.00 mm[Hg] - Sitting 69.00/ min 83955 005 04417 3 452.00 mg/dL 32656 005 62009 3 452.00 mg/dL 70695 005 90971 5 352.00 mg/dL 85872 005 60089 3 352.00 mg/dL 48559 005 66015 7 98.20 Tympanic 09934 005 81423 3 101.00 mg/dL 66241 005 14007 8 101.00 mg/dL 36350 006 51748 4 66.00 mm[Hg] - Sitting 107.00 mm[Hg] - Sitting 98.00 Tympanic 66.00/ min 18.00/min 07985 006 89988 0 62.00 mm[Hg] - Sitting 162.00 mm[Hg] - Sitting 98.20 Tympanic 96.00 % 60.00/ min 16.00/min 91439 006 73103 4 62.00 mm[Hg] - Sitting 162.00 mm[Hg] - Sitting 98.00 Tympanic 70.00/ min 18.00/min 04448 006 95638 8 62.00 mm[Hg] - Sitting 162.00 mm[Hg] - Sitting 98.20 Tympanic 70.00/ min 18.00/min 95730 006 58743 2 66.00 mm[Hg] - Sitting 132.00 mm[Hg] - Sitting 98.60 Tympanic 74.00/ min 16.00/min 05961 006 43139 5 159.00 mg/dL 61243 006 89918 1 159.00 mg/dL 28739 006 19692 8 98.00 Tympanic 81103 006 51334 2 62.00 mm[Hg] - Sitting 162.00 mm[Hg] - Sitting 70.00/ min 78928 006 06035 7 264.00 mg/dL 56317 006 85764 7 264.00 mg/dL 31283 006 81027 4 196.00 mg/dL 59800 006 32529 3 98.20 Tympanic 60298 006 35492 6 271.00 mg/dL 51944 007 00113 3 97.20 Tympanic 27286 007 19045 2 63.00 mm[Hg] - Sitting 132.00 mm[Hg] - Sitting 98.50 Tympanic 94.00 % 66.00/ min 16.00/min 86770 007 92008 5 188.00 mg/dL 61316 007 57116 2 188.00 mg/dL 13927 007 87198 2 188.00 mg/dL 82525 007 27138 7 97.20 Tympanic 14173 007 07315 6 97.20 Tympanic 53954 007 28418 5 67.00 mm[Hg] - Sitting 152.00 mm[Hg] - Sitting 68.00/ min 71826 007 07222 0 141.00 mg/dL 48197 007 34199 3 141.00 mg/dL 97101 007 59782 1 366.00 mg/dL 86594 007 16258 7 366.00 mg/dL 99799 007 90989 7 98.00 Tympanic 48187 007 71422 6 324.00 mg/dL 30376 007 90820 3 98.00 Tympanic 69936 007 01030 7 324.00 mg/dL 27730 008 08316 0 98.00 Tympanic 11546 008 41016 2 97.90 Tympanic 30093 008 64554 0 98.20 Tympanic 16263 008 75045 0 73.00 mm[Hg] - Sitting 156.00 mm[Hg] - Sitting 98.60 Tympanic 99.00 % 66.00/ min 20.00/min 32720 008 13692 5 137.00 mg/dL 28886 008 09164 7 137.00 mg/dL 36630 008 62794 2 97.90 Tympanic 70069 008 43129 1 137.00 mg/dL 42341 008 02586 8 97.90 Tympanic 44655 008 67624 5 67.00 mm[Hg] - Sitting 124.00 /min 02016 008 78201 6 212.00 mg/dL 91734 008 29914 6 212.00 mg/dL 23131 008 20880 9 317.00 mg/dL 67828 008 39299 4 317.00 mg/dL 41961 008 38933 8 252.00 mg/dL 23830 008 58691 0 98.70 Tympanic 89307 008 80270 7 252.00 mg/dL 008 70541 3 98.70 Tympanic
--- OUTSIDE RECORDS SUMMARY | 2024-10-03 11:20 | External Medical Summary | Continuity Of Care Document ---
Author Name Unknown Address [address] [address] Organization [facility] () Care Team Providers Care Sheet Heater Name Role Phone DO Machado Amy Primary Care Provider [phone] Allergies Allergy Reaction Start Date End Date [...] 3 0.1 mL 08/29 Inactiv e 2023 04690 66513 0 1 time Intrad ermal False Tubersol 5 tub. unit/0.1 mL intradermal injection solution [Tuberculin PPD] 0.1mL Intradermal 1 time For PPD 2nd Step Give 2nd Step PPD Day 1 and Read results Day 3 (schedule 7 days after 1st READ) 0.1mL 09/08 Active 2023 40451 85697 0 1 time Intrad ermal False Humalog [...] order For Diabetes 08/25 Inactiv e 2023 98186 12652 9 4 times a day Subcut aneous False Aspirin 325 mg tablet [generic] 325 By Mouth Twice daily For Anticoagulati on 325 09/25 Active 2023 12755 81408 1 Twice daily By Mouth False Ferrous sulfate 325 mg (65 mg iron) tablet [generic] 325 By Mouth Once daily For anemia 325 2023 Active 2023 10013 10551 5 Once daily By Mouth False Linezolid 600 mg tablet [generic] 600 mg By Mouth Every 12 hours For MRSA INFECTION L BKA 600 mg 08/25 Inactiv e 2023 91200 05003 1 Every 12 hours By Mouth False Cefpodoxime 200 mg tablet [generic] 400 mg By Mouth Twice daily For MRSA INFECTION L BKA 400 mg 08/25 Inactiv e 2023 06853 48103 0 Twice daily By Mouth False Coenzyme Q10 100 mg tablet [generic] 100 mg By Mouth Once daily For SUPP 100 mg 2023 Active 2023 47726 65869 0 Once daily By Mouth False Levothyroxi ne 50 mcg tablet [generic] 50mcg By Mouth Once daily For hypothyroidis m 50mcg 2023 Active 2023 77070 74886 0 Once daily By Mouth False One A Day Men Complete 240 mcg-25 mcg-300 mcg tablet 1 tab By Mouth Once daily For supplement 1 tab 2023 Active 2023 03828 98611 1 Once daily By Mouth False Cholecalcif adalberto (vitamin D3) 50 mcg (2,000 unit) tablet [generic] 1 TAB By Mouth Once daily For SUPP 1 TAB 2023 Active 2023 23755 19597 1 Once daily By Mouth False Cetirizine 10 mg tablet [generic] 1 TAB By Mouth At bedtime For Allergies 1 TAB 2023 Active 2023 73973 87580 0 At bedtime By Mouth False Timolol maleate 0.25 % eye drops [generic] 1 drop Both Eyes Twice daily For glaucoma 1 drop 2023 Active 2023 13288 99505 5 Twice daily Both Eyes False Alendronate 35 mg tablet [generic] 35mg By Mouth Every week For SIADH 35mg 2023 Active 2023 52288 36538 5 Every week By Mouth False Lantus Solostar U-100 Insulin 100 unit/mL (3 mL) subcutaneou s pen 18 units Subcutaneous Every morning For DIABETES 18 units 08/25 Inactiv e 2023 39340 37674 0 Every morning Subcut aneous False Lantus Solostar U-100 Insulin 100 unit/mL (3 mL) subcutaneou s pen 18 units Subcutaneous Every morning For DIABETES 18 units 2023 Active 2023 74711 54281 0 Every morning Subcut aneous False Linezolid 600 mg tablet [generic] 600 mg By Mouth Every 12 hours For MRSA INFECTION L BKA 600 mg 08/28 Inactiv e 2023 24445 08206 1 Every 12 hours By Mouth False [...] one-time order For Diabetes 2023 Active 2023 22982 61454 9 4 times a day Subcut aneous False Cefpodoxime 200 mg tablet [generic] 400 mg By Mouth Twice daily For MRSA INFECTION L BKA 400 mg 08/28 Inactiv e 2023 64361 20185 0 Twice daily By Mouth False Brimonidine 0.1 % eye drops [generic] 1 drop Both Eyes Twice daily For glaucoma 1 drop 2023 Active 2023 73156 79848 0 Twice daily Both Eyes False Metoprolol succinate ER 50 mg tablet,exte nded release 24 hr [generic] 50 mg By Mouth Once daily HOLD FOR SBP <100, or pulse <60 For HTN 50 mg 2023 Active 2023 37992 71978 1 Once daily By Mouth False Amlodipine 2.5 mg tablet [generic] 2.5 mg By Mouth Once daily For HTN 2.5 mg 2023 Active 2023 96816 34767 5 Once daily By Mouth False Docusate sodium 100 mg capsule [generic] 100mg By Mouth Twice daily as needed For constipation HOLD FOR LOOSE STOOLS 100mg 2023 Active 2023 29860 76404 1 Twice daily as needed By Mouth False Atorvastati n 40 mg tablet [generic] 40mg By Mouth Once daily For HDL 40mg 08/26 Inactiv e 2023 54648 01404 5 Once daily By Mouth False Tylenol 325 mg tablet 2 tabs By Mouth Every 4 hours as needed For Pain DO NOT EXCEED 3000 MG APAP/24 Hours 2 tabs 2023 Active 2023 68006 83688 0 Every 4 hours as needed By Mouth False Tylenol 325 mg tablet 2 tabs By Mouth Every 4 hours as needed For Fever >100 DO NOT EXCEED 3000 MG APAP/24 Hours 2 tabs 2023 Active 2023 00207 63665 0 Every 4 hours as needed By Mouth False Dulcolax (bisacodyl) 10 mg rectal suppository One Suppository per rectum PRN if Milk of Magnisia ineffective. Give on day 5 of no BM 1 sup 2023 Active 2023 77663 97479 1 Daily as needed Rectal False Fleet Enema 19 gram-7 gram/118 mL Administer per rectum PRN one time if dulcolax suppository not effective. Give on day 6 of no BM 1 2023 Active 2023 32240 87129 6 Daily as needed Rectal False Dextrose 50 % in water (D50W) intravenous solution [generic] Dextrose 50% evonne 20-50 ml (slow push) Intravenous if Glucagon not effective after 15 minutes. CALL 911 for ED Evaluation. 50% evonne 2023 Active 2023 79384 25869 9 Intrav enous False Glucagon (HCl) Emergency Kit 1 mg solution for injection Administer Glucagon 1 mg Intramuscular if 15 minutes after GLucose Gel is administered Glucose remains less than 70 1 mg 2023 Active 2023 99442 29401 2 Intram uscula r False Glucose Gel 40 % oral gel [Dextrose] PRN If resident is unable to swallow (with or without symptoms) and Glucose results less than 70 give GLucose 40% Gel 1 tube orally - Recheck Glucose 15 minutes after administratio n. 1 tube 2023 Active 2023 19750 20834 8 By Mouth False Milk of Magnesia 400 mg/5 mL oral suspension [Magnesium hydroxide] PRN 30ml By Mouth Daily as needed for constipation one time daily if no BM, on day 4 of no BM (PRN refer to instructions) For Constipation 30 mL 2023 Active 2023 84697 78994 6 Daily as needed By Mouth False Atorvastati n 40 mg tablet [generic] 08/26 Inactiv e 2023 16599 49746 5 Atorvastati n 40 mg tablet [generic] 40mg By Mouth Once daily For HDL 40mg 2023 Active 2023 12851 62491 5 Once daily By Mouth False Insulin aspart (U-100) 100 unit/mL (3 mL) subcutaneou s pen [generic] 15 units Subcutaneous 1 time For dm 15 units 08/26 Inactiv e 2023 23949 23152 5 1 time Subcut aneous False Humalog KwikPen (U-100) Insulin 100 unit/mL subcutaneou s 15 units Subcutaneous 1 time For dm 15 units 08/27 Inactiv e 2023 64335 71984 9 1 time Subcut aneous False Linezolid 600 mg tablet [generic] 600 mg By Mouth Every 12 hours For MRSA INFECTION L BKA 600 mg 09/06 Active 2023 81563 18231 1 Every 12 hours By Mouth False Cefpodoxime 200 mg tablet [generic] 400 mg By Mouth Twice daily For MRSA INFECTION L BKA 400 mg 08/31 Active 2023 57210 52725 0 Twice daily By Mouth False Senna 8.6 mg tablet 8.6 mg By Mouth Once daily For Constipation 8.6 mg 2023 Active 2023 41142 19499 1 Once daily By Mouth False MediHoney HCS 4 1/2in X 4 1/2in bandage Cleanse area with NSS, apply one medihoney hydrocolloid dressing, non adherent dressing, kerlix secure with paper tape daily. For wound stage III 1 2023 Active 2023 28274 98340 1 Once daily Topica l False Problems Code Description Start Date End Date Status D64.9 Anemia, unspecified 08/25/2024 Activ e I25.10 Atherosclerotic hear t disease of [place] coronary artery without angina pectoris 08/25/2024 Active [...] weight Temperature SpO2 Blood Sugar Pulse Respirations 59770 8 67.00 mm[Hg] - Sitting 145.00 mm[Hg] - Sitting 98.50 Forehead Scan 96.00 % 81.00/ min 16.00/min 14865 004 06404 2 67.00 mm[Hg] - Sitting 145.00 mm[Hg] - Sitting 98.50 Tympanic 81.00/ min 16.00/min 01944 004 42831 5 56.00 mm[Hg] - Sitting 142.00 mm[Hg] - Sitting 136.40 NI 100.20 Tympanic 96.00 % 92.00/ min 18.00/min 94912 004 79727 6 93437 004 96461 4 143.00 mg/dL 45993 0 97.80 Tympanic 005 69902 7 60.00 mm[Hg] - Sitting 140.00 mm[Hg] - Sitting 98.00 Tympanic 84.00/ min 18.00/min 93811 005 60620 0 63.00 mm[Hg] - Sitting 141.00 mm[Hg] - Sitting 98.20 Tympanic 92.00 % 63.00/ min 16.00/min 22078 005 99178 8 69.00 mm[Hg] - Sitting 106.00 mm[Hg] - Sitting 97.20 Tympanic 33512 005 49490 7 69.00/ min 16.00/min 13858 005 01834 3 69.00 mm[Hg] - Sitting 106.00 mm[Hg] - Sitting 98.20 Tympanic 69.00/ min 16.00/min 59953 005 55371 1 367.00 mg/dL 21607 005 17425 2 97.20 Tympanic 33623 005 88593 4 97.20 Tympanic 91762 005 85662 0 69.00 mm[Hg] - Sitting 106.00 mm[Hg] - Sitting 69.00/ min 89824 005 71279 3 452.00 mg/dL 05790 005 21803 3 452.00 mg/dL 43394 005 90607 5 352.00 mg/dL 64324 005 07337 3 352.00 mg/dL 67230 005 04042 7 98.20 Tympanic 03022 005 74687 3 101.00 mg/dL 33917 005 31921 8 101.00 mg/dL 60636 006 96546 4 66.00 mm[Hg] - Sitting 107.00 mm[Hg] - Sitting 98.00 Tympanic 66.00/ min 18.00/min 72056 006 15631 0 62.00 mm[Hg] - Sitting 162.00 mm[Hg] - Sitting 98.20 Tympanic 96.00 % 60.00/ min 16.00/min 28195 006 70158 4 62.00 mm[Hg] - Sitting 162.00 mm[Hg] - Sitting 98.00 Tympanic 70.00/ min 18.00/min 48044 006 63997 8 62.00 mm[Hg] - Sitting 162.00 mm[Hg] - Sitting 98.20 Tympanic 70.00/ min 18.00/min 49659 006 71917 2 66.00 mm[Hg] - Sitting 132.00 mm[Hg] - Sitting 98.60 Tympanic 74.00/ min 16.00/min 44617 006 06593 5 159.00 mg/dL 24802 006 01373 1 159.00 mg/dL 68898 006 66566 8 98.00 Tympanic 61150 006 86936 2 62.00 mm[Hg] - Sitting 162.00 mm[Hg] - Sitting 70.00/ min 60068 006 65549 7 264.00 mg/dL 25797 006 54873 7 264.00 mg/dL 85283 006 05155 4 196.00 mg/dL 76542 006 19606 3 98.20 Tympanic 59783 006 51731 6 271.00 mg/dL 30254 007 02728 3 97.20 Tympanic 33928 007 17591 2 63.00 mm[Hg] - Sitting 132.00 mm[Hg] - Sitting 98.50 Tympanic 94.00 % 66.00/ min 16.00/min 27311 007 49149 5 188.00 mg/dL 64030 007 15152 2 188.00 mg/dL 45181 007 34300 2 188.00 mg/dL 80796 007 91465 7 97.20 Tympanic 46324 007 53950 6 97.20 Tympanic 17143 007 03848 5 67.00 mm[Hg] - Sitting 152.00 mm[Hg] - Sitting 68.00/ min 20135 007 20411 0 141.00 mg/dL 45910 007 96309 3 141.00 mg/dL 77440 007 89428 1 366.00 mg/dL 43192 007 74858 7 366.00 mg/dL 66994 007 37724 7 98.00 Tympanic 42104 007 23884 6 324.00 mg/dL 20870 007 19471 3 98.00 Tympanic 71231 007 16282 7 324.00 mg/dL 30388 008 92112 0 98.00 Tympanic 84307 008 95802 2 97.90 Tympanic 43613 008 69733 0 98.20 Tympanic 74029 008 87302 0 73.00 mm[Hg] - Sitting 156.00 mm[Hg] - Sitting 98.60 Tympanic 99.00 % 66.00/ min 20.00/min 97050 008 06239 5 137.00 mg/dL 72454 008 17165 7 137.00 mg/dL 60130 008 17661 2 97.90 Tympanic 36118 008 59313 1 137.00 mg/dL 77751 008 97911 8 97.90 Tympanic 55862 008 58809 5 67.00 mm[Hg] - Sitting 124.00 /min 22212 008 28048 6 212.00 mg/dL 07229 008 75329 6 212.00 mg/dL 21807 008 19347 9 317.00 mg/dL 20664 008 54962 4 317.00 mg/dL 50923 008 34091 8 252.00 mg/dL 76435 008 68955 0 98.70 Tympanic 89006 008 07359 7 252.00 mg/dL 008 95684 3 98.70 Tympanic
--- OUTSIDE RECORDS SUMMARY | 2024-10-03 11:20 | External Medical Summary | Continuity Of Care Document ---
Author Name Unknown Address [address] [address] Organization [facility] () Care Team Providers Care Teamcenter Consultant Name Role Phone DO Machado Amy Primary Care Provider [phone] Allergies Allergy Reaction Start Date End Date [...] 3 0.1 mL 08/29 Inactiv e 2023 11550 06103 0 1 time Intrad ermal False Tubersol 5 tub. unit/0.1 mL intradermal injection solution [Tuberculin PPD] 0.1mL Intradermal 1 time For PPD 2nd Step Give 2nd Step PPD Day 1 and Read results Day 3 (schedule 7 days after 1st READ) 0.1mL 09/08 Active 2023 63088 82251 0 1 time Intrad ermal False Humalog [...] order For Diabetes 08/25 Inactiv e 2023 62242 57965 9 4 times a day Subcut aneous False Aspirin 325 mg tablet [generic] 325 By Mouth Twice daily For Anticoagulati on 325 09/25 Active 2023 23412 74540 1 Twice daily By Mouth False Ferrous sulfate 325 mg (65 mg iron) tablet [generic] 325 By Mouth Once daily For anemia 325 2023 Active 2023 16390 32263 5 Once daily By Mouth False Linezolid 600 mg tablet [generic] 600 mg By Mouth Every 12 hours For MRSA INFECTION L BKA 600 mg 08/25 Inactiv e 2023 18911 17929 1 Every 12 hours By Mouth False Cefpodoxime 200 mg tablet [generic] 400 mg By Mouth Twice daily For MRSA INFECTION L BKA 400 mg 08/25 Inactiv e 2023 08106 02988 0 Twice daily By Mouth False Coenzyme Q10 100 mg tablet [generic] 100 mg By Mouth Once daily For SUPP 100 mg 2023 Active 2023 64744 80842 0 Once daily By Mouth False Levothyroxi ne 50 mcg tablet [generic] 50mcg By Mouth Once daily For hypothyroidis m 50mcg 2023 Active 2023 31456 01398 0 Once daily By Mouth False One A Day Men Complete 240 mcg-25 mcg-300 mcg tablet 1 tab By Mouth Once daily For supplement 1 tab 2023 Active 2023 20249 41563 1 Once daily By Mouth False Cholecalcif adalberto (vitamin D3) 50 mcg (2,000 unit) tablet [generic] 1 TAB By Mouth Once daily For SUPP 1 TAB 2023 Active 2023 52990 42655 1 Once daily By Mouth False Cetirizine 10 mg tablet [generic] 1 TAB By Mouth At bedtime For Allergies 1 TAB 2023 Active 2023 72013 34881 0 At bedtime By Mouth False Timolol maleate 0.25 % eye drops [generic] 1 drop Both Eyes Twice daily For glaucoma 1 drop 2023 Active 2023 60153 99589 5 Twice daily Both Eyes False Alendronate 35 mg tablet [generic] 35mg By Mouth Every week For SIADH 35mg 2023 Active 2023 89629 35360 5 Every week By Mouth False Lantus Solostar U-100 Insulin 100 unit/mL (3 mL) subcutaneou s pen 18 units Subcutaneous Every morning For DIABETES 18 units 08/25 Inactiv e 2023 08979 84704 0 Every morning Subcut aneous False Lantus Solostar U-100 Insulin 100 unit/mL (3 mL) subcutaneou s pen 18 units Subcutaneous Every morning For DIABETES 18 units 2023 Active 2023 33791 80767 0 Every morning Subcut aneous False Linezolid 600 mg tablet [generic] 600 mg By Mouth Every 12 hours For MRSA INFECTION L BKA 600 mg 08/28 Inactiv e 2023 71116 41206 1 Every 12 hours By Mouth False [...] one-time order For Diabetes 2023 Active 2023 03956 67435 9 4 times a day Subcut aneous False Cefpodoxime 200 mg tablet [generic] 400 mg By Mouth Twice daily For MRSA INFECTION L BKA 400 mg 08/28 Inactiv e 2023 43491 50023 0 Twice daily By Mouth False Brimonidine 0.1 % eye drops [generic] 1 drop Both Eyes Twice daily For glaucoma 1 drop 2023 Active 2023 08160 80445 0 Twice daily Both Eyes False Metoprolol succinate ER 50 mg tablet,exte nded release 24 hr [generic] 50 mg By Mouth Once daily HOLD FOR SBP <100, or pulse <60 For HTN 50 mg 2023 Active 2023 66732 94389 1 Once daily By Mouth False Amlodipine 2.5 mg tablet [generic] 2.5 mg By Mouth Once daily For HTN 2.5 mg 2023 Active 2023 41591 01990 5 Once daily By Mouth False Docusate sodium 100 mg capsule [generic] 100mg By Mouth Twice daily as needed For constipation HOLD FOR LOOSE STOOLS 100mg 2023 Active 2023 13498 50804 1 Twice daily as needed By Mouth False Atorvastati n 40 mg tablet [generic] 40mg By Mouth Once daily For HDL 40mg 08/26 Inactiv e 2023 65692 76867 5 Once daily By Mouth False Tylenol 325 mg tablet 2 tabs By Mouth Every 4 hours as needed For Pain DO NOT EXCEED 3000 MG APAP/24 Hours 2 tabs 2023 Active 2023 02036 44999 0 Every 4 hours as needed By Mouth False Tylenol 325 mg tablet 2 tabs By Mouth Every 4 hours as needed For Fever >100 DO NOT EXCEED 3000 MG APAP/24 Hours 2 tabs 2023 Active 2023 68806 71208 0 Every 4 hours as needed By Mouth False Dulcolax (bisacodyl) 10 mg rectal suppository One Suppository per rectum PRN if Milk of Magnisia ineffective. Give on day 5 of no BM 1 sup 2023 Active 2023 10663 91704 1 Daily as needed Rectal False Fleet Enema 19 gram-7 gram/118 mL Administer per rectum PRN one time if dulcolax suppository not effective. Give on day 6 of no BM 1 2023 Active 2023 25269 71917 6 Daily as needed Rectal False Dextrose 50 % in water (D50W) intravenous solution [generic] Dextrose 50% evonne 20-50 ml (slow push) Intravenous if Glucagon not effective after 15 minutes. CALL 911 for ED Evaluation. 50% evonne 2023 Active 2023 05760 39311 9 Intrav enous False Glucagon (HCl) Emergency Kit 1 mg solution for injection Administer Glucagon 1 mg Intramuscular if 15 minutes after GLucose Gel is administered Glucose remains less than 70 1 mg 2023 Active 2023 91752 41011 2 Intram uscula r False Glucose Gel 40 % oral gel [Dextrose] PRN If resident is unable to swallow (with or without symptoms) and Glucose results less than 70 give GLucose 40% Gel 1 tube orally - Recheck Glucose 15 minutes after administratio n. 1 tube 2023 Active 2023 77128 23963 8 By Mouth False Milk of Magnesia 400 mg/5 mL oral suspension [Magnesium hydroxide] PRN 30ml By Mouth Daily as needed for constipation one time daily if no BM, on day 4 of no BM (PRN refer to instructions) For Constipation 30 mL 2023 Active 2023 38539 12557 6 Daily as needed By Mouth False Atorvastati n 40 mg tablet [generic] 08/26 Inactiv e 2023 21763 34403 5 Atorvastati n 40 mg tablet [generic] 40mg By Mouth Once daily For HDL 40mg 2023 Active 2023 88544 52336 5 Once daily By Mouth False Insulin aspart (U-100) 100 unit/mL (3 mL) subcutaneou s pen [generic] 15 units Subcutaneous 1 time For dm 15 units 08/26 Inactiv e 2023 62575 55018 5 1 time Subcut aneous False Humalog KwikPen (U-100) Insulin 100 unit/mL subcutaneou s 15 units Subcutaneous 1 time For dm 15 units 08/27 Inactiv e 2023 94812 26997 9 1 time Subcut aneous False Linezolid 600 mg tablet [generic] 600 mg By Mouth Every 12 hours For MRSA INFECTION L BKA 600 mg 09/06 Active 2023 40111 32930 1 Every 12 hours By Mouth False Cefpodoxime 200 mg tablet [generic] 400 mg By Mouth Twice daily For MRSA INFECTION L BKA 400 mg 08/31 Active 2023 30896 70222 0 Twice daily By Mouth False MediHoney HCS 4 1/2in X 4 1/2in bandage Cleanse area with NSS, apply one medihoney hydrocolloid dressing, non adherent dressing, kerlix secure with paper tape daily. For wound stage III 1 2023 Active 2023 08589 89414 1 Once daily Topica l False Problems Code Description Start Date End Date Status D64.9 Anemia, unspecified 08/25/2024 Activ e I25.10 Atherosclerotic hear t disease of [place] coronary artery without angina pectoris 08/25/2024 Active [...] weight Temperature SpO2 Blood Sugar Pulse Respirations 37557 8 67.00 mm[Hg] - Sitting 145.00 mm[Hg] - Sitting 98.50 Forehead Scan 96.00 % 81.00/ min 16.00/min 50988 004 15968 2 67.00 mm[Hg] - Sitting 145.00 mm[Hg] - Sitting 98.50 Tympanic 81.00/ min 16.00/min 30169 004 31164 5 56.00 mm[Hg] - Sitting 142.00 mm[Hg] - Sitting 136.40 NI 100.20 Tympanic 96.00 % 92.00/ min 18.00/min 74331 004 86284 6 43543 004 58907 4 143.00 mg/dL 28760 0 97.80 Tympanic 005 54719 7 60.00 mm[Hg] - Sitting 140.00 mm[Hg] - Sitting 98.00 Tympanic 84.00/ min 18.00/min 44843 005 59192 0 63.00 mm[Hg] - Sitting 141.00 mm[Hg] - Sitting 98.20 Tympanic 92.00 % 63.00/ min 16.00/min 63679 005 29167 8 69.00 mm[Hg] - Sitting 106.00 mm[Hg] - Sitting 97.20 Tympanic 005 41936 7 69.00/ min 16.00/min 36475 005 75422 3 69.00 mm[Hg] - Sitting 106.00 mm[Hg] - Sitting 98.20 Tympanic 69.00/ min 16.00/min 76072 005 70850 1 367.00 mg/dL 08212 005 95595 2 97.20 Tympanic 90765 005 97269 4 97.20 Tympanic 01518 005 25823 0 69.00 mm[Hg] - Sitting 106.00 mm[Hg] - Sitting 69.00/ min 27613 005 50611 3 452.00 mg/dL 73857 005 33886 3 452.00 mg/dL 26437 005 94089 5 352.00 mg/dL 79024 005 77492 3 352.00 mg/dL 34215 005 46602 7 98.20 Tympanic 07758 005 3 101.00 mg/dL 03050 005 8 101.00 mg/dL 91265 006 61331 4 66.00 mm[Hg] - Sitting 107.00 mm[Hg] - Sitting 98.00 Tympanic 66.00/ min 18.00/min 67709 006 05252 0 62.00 mm[Hg] - Sitting 162.00 mm[Hg] - Sitting 98.20 Tympanic 96.00 % 60.00/ min 16.00/min 42786 006 83487 4 62.00 mm[Hg] - Sitting 162.00 mm[Hg] - Sitting 98.00 Tympanic 70.00/ min 18.00/min 38862 006 64925 8 62.00 mm[Hg] - Sitting 162.00 mm[Hg] - Sitting 98.20 Tympanic 70.00/ min 18.00/min 09225 006 02558 2 66.00 mm[Hg] - Sitting 132.00 mm[Hg] - Sitting 98.60 Tympanic 74.00/ min 16.00/min 65362 006 12666 5 159.00 mg/dL 96178 006 25385 1 159.00 mg/dL 02205 006 52174 8 98.00 Tympanic 44654 006 95303 2 62.00 mm[Hg] - Sitting 162.00 mm[Hg] - Sitting 70.00/ min 23120 006 02591 7 264.00 mg/dL 33224 006 97099 7 264.00 mg/dL 69828 006 06965 4 196.00 mg/dL 82200 006 15233 3 98.20 Tympanic 62749 006 84227 6 271.00 mg/dL 22187 007 63113 3 97.20 Tympanic 59785 007 94419 2 63.00 mm[Hg] - Sitting 132.00 mm[Hg] - Sitting 98.50 Tympanic 94.00 % 66.00/ min 16.00/min 84749 007 80288 5 188.00 mg/dL 55239 007 65073 2 188.00 mg/dL 75938 007 58815 2 188.00 mg/dL 83109 007 13663 7 97.20 Tympanic 72843 007 74533 6 97.20 Tympanic 36716 007 88696 5 67.00 mm[Hg] - Sitting 152.00 mm[Hg] - Sitting 68.00/ min 35702 007 52582 0 141.00 mg/dL 21314 007 12096 3 141.00 mg/dL 47691 007 25856 1 366.00 mg/dL 21871 007 98590 7 366.00 mg/dL 19341 007 00885 7 98.00 Tympanic 56544 007 98041 6 324.00 mg/dL 75979 007 68895 3 98.00 Tympanic 82450 007 80118 7 324.00 mg/dL 84756 008 49832 0 98.00 Tympanic 16854 008 13568 5 137.00 mg/dL 23024 008 00641 7 137.00 mg/dL 62088 008 41257 2 97.90 Tympanic 77160 008 36691 1 137.00 mg/dL 89538 008 67039 8 97.90 Tympanic 48052 008 08518 5 67.00 mm[Hg] - Sitting 124.00 /min 07142 008 22417 6 212.00 mg/dL 16470 008 65677 6 212.00 mg/dL
--- OUTSIDE RECORDS SUMMARY | 2024-10-03 11:20 | External Medical Summary | Continuity Of Care Document ---
Author Name Unknown Address [address] [address] Organization [facility] () Care Team Providers Care Announcer Name Role Phone DO Machado Amy Primary Care Provider [phone] Allergies Allergy Reaction Start Date End Date [...] 3 0.1 mL 08/29 Inactiv e 2023 82995 88396 0 1 time Intrad ermal False Tubersol 5 tub. unit/0.1 mL intradermal injection solution [Tuberculin PPD] 0.1mL Intradermal 1 time For PPD 2nd Step Give 2nd Step PPD Day 1 and Read results Day 3 (schedule 7 days after 1st READ) 0.1mL 09/08 Active 2023 20862 95604 0 1 time Intrad ermal False Humalog [...] order For Diabetes 08/25 Inactiv e 2023 32986 99192 9 4 times a day Subcut aneous False Aspirin 325 mg tablet [generic] 325 By Mouth Twice daily For Anticoagulati on 325 09/25 Active 2023 14631 30470 1 Twice daily By Mouth False Ferrous sulfate 325 mg (65 mg iron) tablet [generic] 325 By Mouth Once daily For anemia 325 2023 Active 2023 33075 44414 5 Once daily By Mouth False Linezolid 600 mg tablet [generic] 600 mg By Mouth Every 12 hours For MRSA INFECTION L BKA 600 mg 08/25 Inactiv e 2023 46521 31746 1 Every 12 hours By Mouth False Cefpodoxime 200 mg tablet [generic] 400 mg By Mouth Twice daily For MRSA INFECTION L BKA 400 mg 08/25 Inactiv e 2023 06404 86789 0 Twice daily By Mouth False Coenzyme Q10 100 mg tablet [generic] 100 mg By Mouth Once daily For SUPP 100 mg 2023 Active 2023 41884 73008 0 Once daily By Mouth False Levothyroxi ne 50 mcg tablet [generic] 50mcg By Mouth Once daily For hypothyroidis m 50mcg 2023 Active 2023 44136 40065 0 Once daily By Mouth False One A Day Men Complete 240 mcg-25 mcg-300 mcg tablet 1 tab By Mouth Once daily For supplement 1 tab 2023 Active 2023 70007 55595 1 Once daily By Mouth False Cholecalcif adalberto (vitamin D3) 50 mcg (2,000 unit) tablet [generic] 1 TAB By Mouth Once daily For SUPP 1 TAB 2023 Active 2023 00006 11520 1 Once daily By Mouth False Cetirizine 10 mg tablet [generic] 1 TAB By Mouth At bedtime For Allergies 1 TAB 2023 Active 2023 65020 48686 0 At bedtime By Mouth False Timolol maleate 0.25 % eye drops [generic] 1 drop Both Eyes Twice daily For glaucoma 1 drop 2023 Active 2023 65413 01459 5 Twice daily Both Eyes False Alendronate 35 mg tablet [generic] 35mg By Mouth Every week For SIADH 35mg 2023 Active 2023 72291 35814 5 Every week By Mouth False Lantus Solostar U-100 Insulin 100 unit/mL (3 mL) subcutaneou s pen 18 units Subcutaneous Every morning For DIABETES 18 units 08/25 Inactiv e 2023 81120 88494 0 Every morning Subcut aneous False Lantus Solostar U-100 Insulin 100 unit/mL (3 mL) subcutaneou s pen 18 units Subcutaneous Every morning For DIABETES 18 units 2023 Active 2023 36120 30128 0 Every morning Subcut aneous False Linezolid 600 mg tablet [generic] 600 mg By Mouth Every 12 hours For MRSA INFECTION L BKA 600 mg 08/28 Inactiv e 2023 80293 54003 1 Every 12 hours By Mouth False [...] one-time order For Diabetes 2023 Active 2023 42864 46119 9 4 times a day Subcut aneous False Cefpodoxime 200 mg tablet [generic] 400 mg By Mouth Twice daily For MRSA INFECTION L BKA 400 mg 08/28 Inactiv e 2023 76709 78352 0 Twice daily By Mouth False Brimonidine 0.1 % eye drops [generic] 1 drop Both Eyes Twice daily For glaucoma 1 drop 2023 Active 2023 99362 53132 0 Twice daily Both Eyes False Metoprolol succinate ER 50 mg tablet,exte nded release 24 hr [generic] 50 mg By Mouth Once daily HOLD FOR SBP <100, or pulse <60 For HTN 50 mg 2023 Active 2023 96032 89502 1 Once daily By Mouth False Amlodipine 2.5 mg tablet [generic] 2.5 mg By Mouth Once daily For HTN 2.5 mg 2023 Active 2023 67943 57338 5 Once daily By Mouth False Docusate sodium 100 mg capsule [generic] 100mg By Mouth Twice daily as needed For constipation HOLD FOR LOOSE STOOLS 100mg 2023 Active 2023 41018 20247 1 Twice daily as needed By Mouth False Atorvastati n 40 mg tablet [generic] 40mg By Mouth Once daily For HDL 40mg 08/26 Inactiv e 2023 78254 59149 5 Once daily By Mouth False Tylenol 325 mg tablet 2 tabs By Mouth Every 4 hours as needed For Pain DO NOT EXCEED 3000 MG APAP/24 Hours 2 tabs 2023 Active 2023 25706 06638 0 Every 4 hours as needed By Mouth False Tylenol 325 mg tablet 2 tabs By Mouth Every 4 hours as needed For Fever >100 DO NOT EXCEED 3000 MG APAP/24 Hours 2 tabs 2023 Active 2023 08251 93621 0 Every 4 hours as needed By Mouth False Dulcolax (bisacodyl) 10 mg rectal suppository One Suppository per rectum PRN if Milk of Magnisia ineffective. Give on day 5 of no BM 1 sup 2023 Active 2023 93654 42658 1 Daily as needed Rectal False Fleet Enema 19 gram-7 gram/118 mL Administer per rectum PRN one time if dulcolax suppository not effective. Give on day 6 of no BM 1 2023 Active 2023 42793 59075 6 Daily as needed Rectal False Dextrose 50 % in water (D50W) intravenous solution [generic] Dextrose 50% evonne 20-50 ml (slow push) Intravenous if Glucagon not effective after 15 minutes. CALL 911 for ED Evaluation. 50% evonne 2023 Active 2023 85985 82383 9 Intrav enous False Glucagon (HCl) Emergency Kit 1 mg solution for injection Administer Glucagon 1 mg Intramuscular if 15 minutes after GLucose Gel is administered Glucose remains less than 70 1 mg 2023 Active 2023 11495 73697 2 Intram uscula r False Glucose Gel 40 % oral gel [Dextrose] PRN If resident is unable to swallow (with or without symptoms) and Glucose results less than 70 give GLucose 40% Gel 1 tube orally - Recheck Glucose 15 minutes after administratio n. 1 tube 2023 Active 2023 64246 10948 8 By Mouth False Milk of Magnesia 400 mg/5 mL oral suspension [Magnesium hydroxide] PRN 30ml By Mouth Daily as needed for constipation one time daily if no BM, on day 4 of no BM (PRN refer to instructions) For Constipation 30 mL 2023 Active 2023 02685 58664 6 Daily as needed By Mouth False Atorvastati n 40 mg tablet [generic] 08/26 Inactiv e 2023 36028 65403 5 Atorvastati n 40 mg tablet [generic] 40mg By Mouth Once daily For HDL 40mg 2023 Active 2023 44573 78951 5 Once daily By Mouth False Insulin aspart (U-100) 100 unit/mL (3 mL) subcutaneou s pen [generic] 15 units Subcutaneous 1 time For dm 15 units 08/26 Inactiv e 2023 04188 34440 5 1 time Subcut aneous False Humalog KwikPen (U-100) Insulin 100 unit/mL subcutaneou s 15 units Subcutaneous 1 time For dm 15 units 08/27 Inactiv e 2023 70413 00099 9 1 time Subcut aneous False Linezolid 600 mg tablet [generic] 600 mg By Mouth Every 12 hours For MRSA INFECTION L BKA 600 mg 09/06 Active 2023 21936 64614 1 Every 12 hours By Mouth False Cefpodoxime 200 mg tablet [generic] 400 mg By Mouth Twice daily For MRSA INFECTION L BKA 400 mg 08/31 Active 2023 30529 24601 0 Twice daily By Mouth False MediHoney HCS 4 1/2in X 4 1/2in bandage Cleanse area with NSS, apply one medihoney hydrocolloid dressing, non adherent dressing, kerlix secure with paper tape daily. For wound stage III 1 2023 Active 2023 18715 12743 1 Once daily Topica l False Problems Code Description Start Date End Date Status D64.9 Anemia, unspecified 08/25/2024 Activ e I25.10 Atherosclerotic hear t disease of [place] coronary artery without angina pectoris 08/25/2024 [...] weight Temperature SpO2 Blood Sugar Pulse Respirations 57349 8 67.00 mm[Hg] - Sitting 145.00 mm[Hg] - Sitting 98.50 Forehead Scan 96.00 % 81.00/ min 16.00/min 03004 004 06880 2 67.00 mm[Hg] - Sitting 145.00 mm[Hg] - Sitting 98.50 Tympanic 81.00/ min 16.00/min 09768 004 19946 5 56.00 mm[Hg] - Sitting 142.00 mm[Hg] - Sitting 136.40 NI 100.20 Tympanic 96.00 % 92.00/ min 18.00/min 10606 004 54704 6 83750 004 05690 4 143.00 mg/dL 97204 0 97.80 Tympanic 005 75611 7 60.00 mm[Hg] - Sitting 140.00 mm[Hg] - Sitting 98.00 Tympanic 84.00/ min 18.00/min 29544 005 65893 0 63.00 mm[Hg] - Sitting 141.00 mm[Hg] - Sitting 98.20 Tympanic 92.00 % 63.00/ min 16.00/min 79555 005 72252 8 69.00 mm[Hg] - Sitting 106.00 mm[Hg] - Sitting 97.20 Tympanic 005 30305 7 69.00/ min 16.00/min 63120 005 76319 3 69.00 mm[Hg] - Sitting 106.00 mm[Hg] - Sitting 98.20 Tympanic 69.00/ min 16.00/min 39212 005 74586 1 367.00 mg/dL 30563 005 11628 2 97.20 Tympanic 79434 005 25632 4 97.20 Tympanic 28817 005 19441 0 69.00 mm[Hg] - Sitting 106.00 mm[Hg] - Sitting 69.00/ min 93121 005 36378 3 452.00 mg/dL 35074 005 42019 3 452.00 mg/dL 62290 005 20086 5 352.00 mg/dL 51984 005 77698 3 352.00 mg/dL 02613 005 09404 7 98.20 Tympanic 98475 005 3 101.00 mg/dL 23076 005 8 101.00 mg/dL 14249 006 46956 4 66.00 mm[Hg] - Sitting 107.00 mm[Hg] - Sitting 98.00 Tympanic 66.00/ min 18.00/min 70923 006 34849 0 62.00 mm[Hg] - Sitting 162.00 mm[Hg] - Sitting 98.20 Tympanic 96.00 % 60.00/ min 16.00/min 80628 006 90026 4 62.00 mm[Hg] - Sitting 162.00 mm[Hg] - Sitting 98.00 Tympanic 70.00/ min 18.00/min 03655 006 33570 8 62.00 mm[Hg] - Sitting 162.00 mm[Hg] - Sitting 98.20 Tympanic 70.00/ min 18.00/min 56833 006 98285 2 66.00 mm[Hg] - Sitting 132.00 mm[Hg] - Sitting 98.60 Tympanic 74.00/ min 16.00/min 95081 006 83422 5 159.00 mg/dL 43844 006 87975 1 159.00 mg/dL 75648 006 03590 8 98.00 Tympanic 31862 006 34383 2 62.00 mm[Hg] - Sitting 162.00 mm[Hg] - Sitting 70.00/ min 77223 006 32482 7 264.00 mg/dL 85292 006 20749 7 264.00 mg/dL 53576 006 98224 4 196.00 mg/dL 21775 006 22791 3 98.20 Tympanic 63498 006 16503 6 271.00 mg/dL 40966 007 93249 3 97.20 Tympanic 88631 007 16689 2 63.00 mm[Hg] - Sitting 132.00 mm[Hg] - Sitting 98.50 Tympanic 94.00 % 66.00/ min 16.00/min 83151 007 01791 5 188.00 mg/dL 35598 007 16696 2 188.00 mg/dL 11099 007 26756 2 188.00 mg/dL 92820 007 64712 7 97.20 Tympanic 73331 007 18997 6 97.20 Tympanic 70405 007 59860 5 67.00 mm[Hg] - Sitting 152.00 mm[Hg] - Sitting 68.00/ min 86926 007 55429 0 141.00 mg/dL 58523 007 91681 3 141.00 mg/dL 10987 007 57212 1 366.00 mg/dL 51735 007 06622 7 366.00 mg/dL 17094 007 18792 7 98.00 Tympanic 41155 007 26009 6 324.00 mg/dL 27795 007 50977 3 98.00 Tympanic 58280 007 96984 7 324.00 mg/dL 09558 008 61256 0 98.00 Tympanic 50594 008 51961 5 137.00 mg/dL 37376 008 93167 7 137.00 mg/dL 83351 008 63035 2 97.90 Tympanic 69567 008 24749 1 137.00 mg/dL 43194 008 31953 8 97.90 Tympanic 95861 008 88862 5 67.00 mm[Hg] - Sitting 124.00 /min
--- OUTSIDE RECORDS SUMMARY | 2024-10-03 11:21 | External Medical Summary | Continuity Of Care Document ---
Author Name Unknown Address [address] [address] Organization [facility] () Care Team Providers Care Wire Charger Name Role Phone DO Machado Amy Primary Care Provider [phone] Allergies Allergy Reaction Start Date End Date [...] 3 0.1 mL 08/29 Inactiv e 2023 75835 48357 0 1 time Intrad ermal False Tubersol 5 tub. unit/0.1 mL intradermal injection solution [Tuberculin PPD] 0.1mL Intradermal 1 time For PPD 2nd Step Give 2nd Step PPD Day 1 and Read results Day 3 (schedule 7 days after 1st READ) 0.1mL 09/08 Active 2023 87246 10450 0 1 time Intrad ermal False Humalog [...] order For Diabetes 08/25 Inactiv e 2023 22044 08470 9 4 times a day Subcut aneous False Aspirin 325 mg tablet [generic] 325 By Mouth Twice daily For Anticoagulati on 325 09/25 Active 2023 73237 27940 1 Twice daily By Mouth False Ferrous sulfate 325 mg (65 mg iron) tablet [generic] 325 By Mouth Once daily For anemia 325 2023 Active 2023 56642 90383 5 Once daily By Mouth False Linezolid 600 mg tablet [generic] 600 mg By Mouth Every 12 hours For MRSA INFECTION L BKA 600 mg 08/25 Inactiv e 2023 57492 22516 1 Every 12 hours By Mouth False Cefpodoxime 200 mg tablet [generic] 400 mg By Mouth Twice daily For MRSA INFECTION L BKA 400 mg 08/25 Inactiv e 2023 17208 81296 0 Twice daily By Mouth False Coenzyme Q10 100 mg tablet [generic] 100 mg By Mouth Once daily For SUPP 100 mg 2023 Active 2023 78264 11858 0 Once daily By Mouth False Levothyroxi ne 50 mcg tablet [generic] 50mcg By Mouth Once daily For hypothyroidis m 50mcg 2023 Active 2023 43892 41503 0 Once daily By Mouth False One A Day Men Complete 240 mcg-25 mcg-300 mcg tablet 1 tab By Mouth Once daily For supplement 1 tab 2023 Active 2023 84531 94770 1 Once daily By Mouth False Cholecalcif adalberto (vitamin D3) 50 mcg (2,000 unit) tablet [generic] 1 TAB By Mouth Once daily For SUPP 1 TAB 2023 Active 2023 83631 90890 1 Once daily By Mouth False Cetirizine 10 mg tablet [generic] 1 TAB By Mouth At bedtime For Allergies 1 TAB 2023 Active 2023 95905 11812 0 At bedtime By Mouth False Timolol maleate 0.25 % eye drops [generic] 1 drop Both Eyes Twice daily For glaucoma 1 drop 2023 Active 2023 35825 72431 5 Twice daily Both Eyes False Alendronate 35 mg tablet [generic] 35mg By Mouth Every week For SIADH 35mg 2023 Active 2023 30045 41896 5 Every week By Mouth False Lantus Solostar U-100 Insulin 100 unit/mL (3 mL) subcutaneou s pen 18 units Subcutaneous Every morning For DIABETES 18 units 08/25 Inactiv e 2023 02959 38417 0 Every morning Subcut aneous False Lantus Solostar U-100 Insulin 100 unit/mL (3 mL) subcutaneou s pen 18 units Subcutaneous Every morning For DIABETES 18 units 2023 Active 2023 53571 70494 0 Every morning Subcut aneous False Linezolid 600 mg tablet [generic] 600 mg By Mouth Every 12 hours For MRSA INFECTION L BKA 600 mg 08/28 Inactiv e 2023 69236 95472 1 Every 12 hours By Mouth False [...] one-time order For Diabetes 2023 Active 2023 97961 41869 9 4 times a day Subcut aneous False Cefpodoxime 200 mg tablet [generic] 400 mg By Mouth Twice daily For MRSA INFECTION L BKA 400 mg 08/28 Inactiv e 2023 15313 68644 0 Twice daily By Mouth False Brimonidine 0.1 % eye drops [generic] 1 drop Both Eyes Twice daily For glaucoma 1 drop 2023 Active 2023 14728 99279 0 Twice daily Both Eyes False Metoprolol succinate ER 50 mg tablet,exte nded release 24 hr [generic] 50 mg By Mouth Once daily HOLD FOR SBP <100, or pulse <60 For HTN 50 mg 2023 Active 2023 23063 75217 1 Once daily By Mouth False Amlodipine 2.5 mg tablet [generic] 2.5 mg By Mouth Once daily For HTN 2.5 mg 2023 Active 2023 69705 24362 5 Once daily By Mouth False Docusate sodium 100 mg capsule [generic] 100mg By Mouth Twice daily as needed For constipation HOLD FOR LOOSE STOOLS 100mg 2023 Active 2023 89811 30779 1 Twice daily as needed By Mouth False Atorvastati n 40 mg tablet [generic] 40mg By Mouth Once daily For HDL 40mg 08/26 Inactiv e 2023 34759 44053 5 Once daily By Mouth False Tylenol 325 mg tablet 2 tabs By Mouth Every 4 hours as needed For Pain DO NOT EXCEED 3000 MG APAP/24 Hours 2 tabs 2023 Active 2023 96183 68679 0 Every 4 hours as needed By Mouth False Tylenol 325 mg tablet 2 tabs By Mouth Every 4 hours as needed For Fever >100 DO NOT EXCEED 3000 MG APAP/24 Hours 2 tabs 2023 Active 2023 06261 93430 0 Every 4 hours as needed By Mouth False Dulcolax (bisacodyl) 10 mg rectal suppository One Suppository per rectum PRN if Milk of Magnisia ineffective. Give on day 5 of no BM 1 sup 2023 Active 2023 03828 22278 1 Daily as needed Rectal False Fleet Enema 19 gram-7 gram/118 mL Administer per rectum PRN one time if dulcolax suppository not effective. Give on day 6 of no BM 1 2023 Active 2023 35054 79615 6 Daily as needed Rectal False Dextrose 50 % in water (D50W) intravenous solution [generic] Dextrose 50% evonne 20-50 ml (slow push) Intravenous if Glucagon not effective after 15 minutes. CALL 911 for ED Evaluation. 50% evonne 2023 Active 2023 00551 62372 9 Intrav enous False Glucagon (HCl) Emergency Kit 1 mg solution for injection Administer Glucagon 1 mg Intramuscular if 15 minutes after GLucose Gel is administered Glucose remains less than 70 1 mg 2023 Active 2023 00169 32955 2 Intram uscula r False Glucose Gel 40 % oral gel [Dextrose] PRN If resident is unable to swallow (with or without symptoms) and Glucose results less than 70 give GLucose 40% Gel 1 tube orally - Recheck Glucose 15 minutes after administratio n. 1 tube 2023 Active 2023 54312 76080 8 By Mouth False Milk of Magnesia 400 mg/5 mL oral suspension [Magnesium hydroxide] PRN 30ml By Mouth Daily as needed for constipation one time daily if no BM, on day 4 of no BM (PRN refer to instructions) For Constipation 30 mL 2023 Active 2023 64543 66163 6 Daily as needed By Mouth False Atorvastati n 40 mg tablet [generic] 08/26 Inactiv e 2023 34569 04972 5 Atorvastati n 40 mg tablet [generic] 40mg By Mouth Once daily For HDL 40mg 2023 Active 2023 85225 64680 5 Once daily By Mouth False Insulin aspart (U-100) 100 unit/mL (3 mL) subcutaneou s pen [generic] 15 units Subcutaneous 1 time For dm 15 units 08/26 Inactiv e 2023 70800 39095 5 1 time Subcut aneous False Humalog KwikPen (U-100) Insulin 100 unit/mL subcutaneou s 15 units Subcutaneous 1 time For dm 15 units 08/27 Inactiv e 2023 68374 33900 9 1 time Subcut aneous False Linezolid 600 mg tablet [generic] 600 mg By Mouth Every 12 hours For MRSA INFECTION L BKA 600 mg 09/06 Active 2023 78332 31845 1 Every 12 hours By Mouth False Cefpodoxime 200 mg tablet [generic] 400 mg By Mouth Twice daily For MRSA INFECTION L BKA 400 mg 08/31 Active 2023 49534 81412 0 Twice daily By Mouth False MediHoney HCS 4 1/2in X 4 1/2in bandage Cleanse area with NSS, apply one medihoney hydrocolloid dressing, non adherent dressing, kerlix secure with paper tape daily. For wound stage III 1 2023 Active 2023 10891 36260 1 Once daily Topica l False Problems Code Description Start Date End Date Status D64.9 Anemia, unspecified 08/25/2024 Activ e I25.10 Atherosclerotic hear t disease of [place] coronary artery without angina pectoris 08/25/2024 Active [...] weight Temperature SpO2 Blood Sugar Pulse Respirations 56769 8 67.00 mm[Hg] - Sitting 145.00 mm[Hg] - Sitting 98.50 Forehead Scan 96.00 % 81.00/ min 16.00/min 31140 004 74725 2 67.00 mm[Hg] - Sitting 145.00 mm[Hg] - Sitting 98.50 Tympanic 81.00/ min 16.00/min 99377 004 81937 5 56.00 mm[Hg] - Sitting 142.00 mm[Hg] - Sitting 136.40 NI 100.20 Tympanic 96.00 % 92.00/ min 18.00/min 84469 004 06655 6 40711 004 12969 4 143.00 mg/dL 31965 0 97.80 Tympanic 005 29775 7 60.00 mm[Hg] - Sitting 140.00 mm[Hg] - Sitting 98.00 Tympanic 84.00/ min 18.00/min 67514 005 69399 0 63.00 mm[Hg] - Sitting 141.00 mm[Hg] - Sitting 98.20 Tympanic 92.00 % 63.00/ min 16.00/min 23890 005 20250 8 69.00 mm[Hg] - Sitting 106.00 mm[Hg] - Sitting 97.20 Tympanic 005 61584 7 69.00/ min 16.00/min 92567 005 18352 3 69.00 mm[Hg] - Sitting 106.00 mm[Hg] - Sitting 98.20 Tympanic 69.00/ min 16.00/min 21884 005 53339 1 367.00 mg/dL 88553 005 42465 2 97.20 Tympanic 96835 005 74465 4 97.20 Tympanic 88144 005 06836 0 69.00 mm[Hg] - Sitting 106.00 mm[Hg] - Sitting 69.00/ min 64441 005 84668 3 452.00 mg/dL 91883 005 81976 3 452.00 mg/dL 86316 005 26826 5 352.00 mg/dL 23536 005 40849 3 352.00 mg/dL 47102 005 66017 7 98.20 Tympanic 31345 005 3 101.00 mg/dL 12954 005 8 101.00 mg/dL 17222 006 48080 4 66.00 mm[Hg] - Sitting 107.00 mm[Hg] - Sitting 98.00 Tympanic 66.00/ min 18.00/min 20269 006 42059 0 62.00 mm[Hg] - Sitting 162.00 mm[Hg] - Sitting 98.20 Tympanic 96.00 % 60.00/ min 16.00/min 96188 006 66474 4 62.00 mm[Hg] - Sitting 162.00 mm[Hg] - Sitting 98.00 Tympanic 70.00/ min 18.00/min 30457 006 13242 8 62.00 mm[Hg] - Sitting 162.00 mm[Hg] - Sitting 98.20 Tympanic 70.00/ min 18.00/min 98197 006 09139 2 66.00 mm[Hg] - Sitting 132.00 mm[Hg] - Sitting 98.60 Tympanic 74.00/ min 16.00/min 66892 006 71585 5 159.00 mg/dL 67619 006 14374 1 159.00 mg/dL 35576 006 75484 8 98.00 Tympanic 53813 006 34070 2 62.00 mm[Hg] - Sitting 162.00 mm[Hg] - Sitting 70.00/ min 02677 006 39299 7 264.00 mg/dL 10225 006 04127 7 264.00 mg/dL 97953 006 53794 4 196.00 mg/dL 94218 006 03434 3 98.20 Tympanic 75820 006 47686 6 271.00 mg/dL 77978 007 34437 3 97.20 Tympanic 45542 007 29141 2 63.00 mm[Hg] - Sitting 132.00 mm[Hg] - Sitting 98.50 Tympanic 94.00 % 66.00/ min 16.00/min 85979 007 06373 5 188.00 mg/dL 28979 007 46241 2 188.00 mg/dL 96599 007 51342 2 188.00 mg/dL 37920 007 67362 7 97.20 Tympanic 13617 007 11726 6 97.20 Tympanic 41044 007 12004 5 67.00 mm[Hg] - Sitting 152.00 mm[Hg] - Sitting 68.00/ min 60906 007 61375 0 141.00 mg/dL 87215 007 36605 3 141.00 mg/dL 83393 007 34051 1 366.00 mg/dL 75685 007 52473 7 366.00 mg/dL 62018 007 94947 7 98.00 Tympanic 79264 007 96028 6 324.00 mg/dL 81523 007 66880 3 98.00 Tympanic 26301 007 54438 7 324.00 mg/dL 70911 008 34258 0 98.00 Tympanic 30442 008 42241 5 137.00 mg/dL 85326 008 89896 7 137.00 mg/dL 44501 008 16958 2 97.90 Tympanic
--- OUTSIDE RECORDS SUMMARY | 2024-10-03 11:21 | External Medical Summary | Continuity Of Care Document ---
Author Name Unknown Address [address] [address] Organization [facility] () Care Team Providers Care Manual Lathe Operator Name Role Phone DO Machado Amy Primary Care Provider [phone] Allergies Allergy Reaction Start Date End Date [...] 3 0.1 mL 08/29 Inactiv e 2023 94988 47757 0 1 time Intrad ermal False Tubersol 5 tub. unit/0.1 mL intradermal injection solution [Tuberculin PPD] 0.1mL Intradermal 1 time For PPD 2nd Step Give 2nd Step PPD Day 1 and Read results Day 3 (schedule 7 days after 1st READ) 0.1mL 09/08 Active 2023 52012 58126 0 1 time Intrad ermal False Humalog [...] order For Diabetes 08/25 Inactiv e 2023 28175 12398 9 4 times a day Subcut aneous False Aspirin 325 mg tablet [generic] 325 By Mouth Twice daily For Anticoagulati on 325 09/25 Active 2023 05103 86138 1 Twice daily By Mouth False Ferrous sulfate 325 mg (65 mg iron) tablet [generic] 325 By Mouth Once daily For anemia 325 2023 Active 2023 91490 69142 5 Once daily By Mouth False Linezolid 600 mg tablet [generic] 600 mg By Mouth Every 12 hours For MRSA INFECTION L BKA 600 mg 08/25 Inactiv e 2023 53058 82919 1 Every 12 hours By Mouth False Cefpodoxime 200 mg tablet [generic] 400 mg By Mouth Twice daily For MRSA INFECTION L BKA 400 mg 08/25 Inactiv e 2023 23886 74335 0 Twice daily By Mouth False Coenzyme Q10 100 mg tablet [generic] 100 mg By Mouth Once daily For SUPP 100 mg 2023 Active 2023 94498 15551 0 Once daily By Mouth False Levothyroxi ne 50 mcg tablet [generic] 50mcg By Mouth Once daily For hypothyroidis m 50mcg 2023 Active 2023 34638 34943 0 Once daily By Mouth False One A Day Men Complete 240 mcg-25 mcg-300 mcg tablet 1 tab By Mouth Once daily For supplement 1 tab 2023 Active 2023 72414 65912 1 Once daily By Mouth False Cholecalcif adalberto (vitamin D3) 50 mcg (2,000 unit) tablet [generic] 1 TAB By Mouth Once daily For SUPP 1 TAB 2023 Active 2023 37512 66722 1 Once daily By Mouth False Cetirizine 10 mg tablet [generic] 1 TAB By Mouth At bedtime For Allergies 1 TAB 2023 Active 2023 05187 64931 0 At bedtime By Mouth False Timolol maleate 0.25 % eye drops [generic] 1 drop Both Eyes Twice daily For glaucoma 1 drop 2023 Active 2023 73452 64059 5 Twice daily Both Eyes False Alendronate 35 mg tablet [generic] 35mg By Mouth Every week For SIADH 35mg 2023 Active 2023 88431 30529 5 Every week By Mouth False Lantus Solostar U-100 Insulin 100 unit/mL (3 mL) subcutaneou s pen 18 units Subcutaneous Every morning For DIABETES 18 units 08/25 Inactiv e 2023 63239 44824 0 Every morning Subcut aneous False Lantus Solostar U-100 Insulin 100 unit/mL (3 mL) subcutaneou s pen 18 units Subcutaneous Every morning For DIABETES 18 units 2023 Active 2023 39678 36873 0 Every morning Subcut aneous False Linezolid 600 mg tablet [generic] 600 mg By Mouth Every 12 hours For MRSA INFECTION L BKA 600 mg 08/28 Inactiv e 2023 59960 40148 1 Every 12 hours By Mouth False [...] one-time order For Diabetes 2023 Active 2023 38816 54142 9 4 times a day Subcut aneous False Cefpodoxime 200 mg tablet [generic] 400 mg By Mouth Twice daily For MRSA INFECTION L BKA 400 mg 08/28 Inactiv e 2023 45830 21708 0 Twice daily By Mouth False Brimonidine 0.1 % eye drops [generic] 1 drop Both Eyes Twice daily For glaucoma 1 drop 2023 Active 2023 33228 10697 0 Twice daily Both Eyes False Metoprolol succinate ER 50 mg tablet,exte nded release 24 hr [generic] 50 mg By Mouth Once daily HOLD FOR SBP <100, or pulse <60 For HTN 50 mg 2023 Active 2023 51783 42615 1 Once daily By Mouth False Amlodipine 2.5 mg tablet [generic] 2.5 mg By Mouth Once daily For HTN 2.5 mg 2023 Active 2023 21339 90239 5 Once daily By Mouth False Docusate sodium 100 mg capsule [generic] 100mg By Mouth Twice daily as needed For constipation HOLD FOR LOOSE STOOLS 100mg 2023 Active 2023 59876 36531 1 Twice daily as needed By Mouth False Atorvastati n 40 mg tablet [generic] 40mg By Mouth Once daily For HDL 40mg 08/26 Inactiv e 2023 03857 89579 5 Once daily By Mouth False Tylenol 325 mg tablet 2 tabs By Mouth Every 4 hours as needed For Pain DO NOT EXCEED 3000 MG APAP/24 Hours 2 tabs 2023 Active 2023 41758 48559 0 Every 4 hours as needed By Mouth False Tylenol 325 mg tablet 2 tabs By Mouth Every 4 hours as needed For Fever >100 DO NOT EXCEED 3000 MG APAP/24 Hours 2 tabs 2023 Active 2023 91408 13291 0 Every 4 hours as needed By Mouth False Dulcolax (bisacodyl) 10 mg rectal suppository One Suppository per rectum PRN if Milk of Magnisia ineffective. Give on day 5 of no BM 1 sup 2023 Active 2023 83008 10417 1 Daily as needed Rectal False Fleet Enema 19 gram-7 gram/118 mL Administer per rectum PRN one time if dulcolax suppository not effective. Give on day 6 of no BM 1 2023 Active 2023 98126 90566 6 Daily as needed Rectal False Dextrose 50 % in water (D50W) intravenous solution [generic] Dextrose 50% evonne 20-50 ml (slow push) Intravenous if Glucagon not effective after 15 minutes. CALL 911 for ED Evaluation. 50% evonne 2023 Active 2023 24604 85413 9 Intrav enous False Glucagon (HCl) Emergency Kit 1 mg solution for injection Administer Glucagon 1 mg Intramuscular if 15 minutes after GLucose Gel is administered Glucose remains less than 70 1 mg 2023 Active 2023 89668 57801 2 Intram uscula r False Glucose Gel 40 % oral gel [Dextrose] PRN If resident is unable to swallow (with or without symptoms) and Glucose results less than 70 give GLucose 40% Gel 1 tube orally - Recheck Glucose 15 minutes after administratio n. 1 tube 2023 Active 2023 31433 22958 8 By Mouth False Milk of Magnesia 400 mg/5 mL oral suspension [Magnesium hydroxide] PRN 30ml By Mouth Daily as needed for constipation one time daily if no BM, on day 4 of no BM (PRN refer to instructions) For Constipation 30 mL 2023 Active 2023 38461 04263 6 Daily as needed By Mouth False Atorvastati n 40 mg tablet [generic] 08/26 Inactiv e 2023 80720 57403 5 Atorvastati n 40 mg tablet [generic] 40mg By Mouth Once daily For HDL 40mg 2023 Active 2023 68378 49527 5 Once daily By Mouth False Insulin aspart (U-100) 100 unit/mL (3 mL) subcutaneou s pen [generic] 15 units Subcutaneous 1 time For dm 15 units 08/26 Inactiv e 2023 29733 98467 5 1 time Subcut aneous False Humalog KwikPen (U-100) Insulin 100 unit/mL subcutaneou s 15 units Subcutaneous 1 time For dm 15 units 08/27 Inactiv e 2023 08331 66798 9 1 time Subcut aneous False Linezolid 600 mg tablet [generic] 600 mg By Mouth Every 12 hours For MRSA INFECTION L BKA 600 mg 09/06 Active 2023 27543 51733 1 Every 12 hours By Mouth False Cefpodoxime 200 mg tablet [generic] 400 mg By Mouth Twice daily For MRSA INFECTION L BKA 400 mg 08/31 Active 2023 21471 70409 0 Twice daily By Mouth False MediHoney HCS 4 1/2in X 4 1/2in bandage Cleanse area with NSS, apply one medihoney hydrocolloid dressing, non adherent dressing, kerlix secure with paper tape daily. For wound stage III 1 2023 Active 2023 30171 28874 1 Once daily Topica l False Problems Code Description Start Date End Date Status D64.9 Anemia, unspecified 08/25/2024 Activ e I25.10 Atherosclerotic hear t disease of [place] coronary artery without angina pectoris 08/25/2024 Active [...] weight Temperature SpO2 Blood Sugar Pulse Respirations 98747 8 67.00 mm[Hg] - Sitting 145.00 mm[Hg] - Sitting 98.50 Forehead Scan 96.00 % 81.00/ min 16.00/min 58879 004 91765 2 67.00 mm[Hg] - Sitting 145.00 mm[Hg] - Sitting 98.50 Tympanic 81.00/ min 16.00/min 69699 004 44359 5 56.00 mm[Hg] - Sitting 142.00 mm[Hg] - Sitting 136.40 NI 100.20 Tympanic 96.00 % 92.00/ min 18.00/min 28306 004 08596 6 72119 004 17458 4 143.00 mg/dL 59785 0 97.80 Tympanic 005 27012 7 60.00 mm[Hg] - Sitting 140.00 mm[Hg] - Sitting 98.00 Tympanic 84.00/ min 18.00/min 02989 005 10418 0 63.00 mm[Hg] - Sitting 141.00 mm[Hg] - Sitting 98.20 Tympanic 92.00 % 63.00/ min 16.00/min 26216 005 78129 8 69.00 mm[Hg] - Sitting 106.00 mm[Hg] - Sitting 97.20 Tympanic 005 23643 7 69.00/ min 16.00/min 20843 005 85134 3 69.00 mm[Hg] - Sitting 106.00 mm[Hg] - Sitting 98.20 Tympanic 69.00/ min 16.00/min 15721 005 72515 1 367.00 mg/dL 16180 005 88628 2 97.20 Tympanic 96298 005 33216 4 97.20 Tympanic 40200 005 57018 0 69.00 mm[Hg] - Sitting 106.00 mm[Hg] - Sitting 69.00/ min 24116 005 41944 3 452.00 mg/dL 54901 005 54936 3 452.00 mg/dL 89392 005 35006 5 352.00 mg/dL 78297 005 20930 3 352.00 mg/dL 40914 005 16403 7 98.20 Tympanic 39823 005 3 101.00 mg/dL 20754 005 8 101.00 mg/dL 18862 006 57984 4 66.00 mm[Hg] - Sitting 107.00 mm[Hg] - Sitting 98.00 Tympanic 66.00/ min 18.00/min 66662 006 08499 0 62.00 mm[Hg] - Sitting 162.00 mm[Hg] - Sitting 98.20 Tympanic 96.00 % 60.00/ min 16.00/min 71562 006 46152 4 62.00 mm[Hg] - Sitting 162.00 mm[Hg] - Sitting 98.00 Tympanic 70.00/ min 18.00/min 77482 006 51218 8 62.00 mm[Hg] - Sitting 162.00 mm[Hg] - Sitting 98.20 Tympanic 70.00/ min 18.00/min 34611 006 64042 2 66.00 mm[Hg] - Sitting 132.00 mm[Hg] - Sitting 98.60 Tympanic 74.00/ min 16.00/min 30800 006 46681 5 159.00 mg/dL 45685 006 81913 1 159.00 mg/dL 13793 006 47753 8 98.00 Tympanic 69629 006 38375 2 62.00 mm[Hg] - Sitting 162.00 mm[Hg] - Sitting 70.00/ min 60344 006 22281 7 264.00 mg/dL 29871 006 06070 7 264.00 mg/dL 24184 006 03507 4 196.00 mg/dL 30167 006 81143 3 98.20 Tympanic 82237 006 40099 6 271.00 mg/dL 44756 007 29047 3 97.20 Tympanic 72401 007 77834 2 63.00 mm[Hg] - Sitting 132.00 mm[Hg] - Sitting 98.50 Tympanic 94.00 % 66.00/ min 16.00/min 04638 007 79355 5 188.00 mg/dL 39108 007 02082 2 188.00 mg/dL 39015 007 46302 2 188.00 mg/dL 00988 007 00026 7 97.20 Tympanic 52172 007 25065 6 97.20 Tympanic 19042 007 30996 5 67.00 mm[Hg] - Sitting 152.00 mm[Hg] - Sitting 68.00/ min 87599 007 11713 0 141.00 mg/dL 60032 007 90530 3 141.00 mg/dL 23636 007 94494 1 366.00 mg/dL 04658 007 39195 7 366.00 mg/dL 01944 007 35770 7 98.00 Tympanic 77279 007 32295 6 324.00 mg/dL 92102 007 11050 3 98.00 Tympanic 50599 007 55419 7 324.00 mg/dL 42751 008 79101 0 98.00 Tympanic 55607 008 02817 2 97.90 Tympanic 57961 008 84047 0 98.20 Tympanic 08333 008 94617 5 137.00 mg/dL 91012 008 72622 7 137.00 mg/dL 15016 008 67461 2 97.90 Tympanic 81470 008 02848 1 137.00 mg/dL 07967 008 78504 8 97.90 Tympanic 99351 008 74717 5 67.00 mm[Hg] - Sitting 124.00 /min 61303 008 77109 6 212.00 mg/dL 03601 008 96303 6 212.00 mg/dL
--- OUTSIDE RECORDS SUMMARY | 2024-10-03 11:21 | External Medical Summary | Continuity Of Care Document ---
Author Name Unknown Address [address] [address] Organization [facility] () Care Team Providers Care Bobbin Hauler Name Role Phone DO Machado Amy Primary Care Provider [phone] Allergies Allergy Reaction Start Date End Date [...] 3 0.1 mL 08/29 Inactiv e 2023 77282 82898 0 1 time Intrad ermal False Tubersol 5 tub. unit/0.1 mL intradermal injection solution [Tuberculin PPD] 0.1mL Intradermal 1 time For PPD 2nd Step Give 2nd Step PPD Day 1 and Read results Day 3 (schedule 7 days after 1st READ) 0.1mL 09/08 Active 2023 27096 13823 0 1 time Intrad ermal False Humalog [...] order For Diabetes 08/25 Inactiv e 2023 96896 36175 9 4 times a day Subcut aneous False Aspirin 325 mg tablet [generic] 325 By Mouth Twice daily For Anticoagulati on 325 09/25 Active 2023 54444 42659 1 Twice daily By Mouth False Ferrous sulfate 325 mg (65 mg iron) tablet [generic] 325 By Mouth Once daily For anemia 325 2023 Active 2023 26573 21837 5 Once daily By Mouth False Linezolid 600 mg tablet [generic] 600 mg By Mouth Every 12 hours For MRSA INFECTION L BKA 600 mg 08/25 Inactiv e 2023 65369 61056 1 Every 12 hours By Mouth False Cefpodoxime 200 mg tablet [generic] 400 mg By Mouth Twice daily For MRSA INFECTION L BKA 400 mg 08/25 Inactiv e 2023 82654 19731 0 Twice daily By Mouth False Coenzyme Q10 100 mg tablet [generic] 100 mg By Mouth Once daily For SUPP 100 mg 2023 Active 2023 15960 27425 0 Once daily By Mouth False Levothyroxi ne 50 mcg tablet [generic] 50mcg By Mouth Once daily For hypothyroidis m 50mcg 2023 Active 2023 18456 34906 0 Once daily By Mouth False One A Day Men Complete 240 mcg-25 mcg-300 mcg tablet 1 tab By Mouth Once daily For supplement 1 tab 2023 Active 2023 91861 60828 1 Once daily By Mouth False Cholecalcif adalberto (vitamin D3) 50 mcg (2,000 unit) tablet [generic] 1 TAB By Mouth Once daily For SUPP 1 TAB 2023 Active 2023 67591 93352 1 Once daily By Mouth False Cetirizine 10 mg tablet [generic] 1 TAB By Mouth At bedtime For Allergies 1 TAB 2023 Active 2023 59369 40267 0 At bedtime By Mouth False Timolol maleate 0.25 % eye drops [generic] 1 drop Both Eyes Twice daily For glaucoma 1 drop 2023 Active 2023 88837 51413 5 Twice daily Both Eyes False Alendronate 35 mg tablet [generic] 35mg By Mouth Every week For SIADH 35mg 2023 Active 2023 14553 19993 5 Every week By Mouth False Lantus Solostar U-100 Insulin 100 unit/mL (3 mL) subcutaneou s pen 18 units Subcutaneous Every morning For DIABETES 18 units 08/25 Inactiv e 2023 82618 44462 0 Every morning Subcut aneous False Lantus Solostar U-100 Insulin 100 unit/mL (3 mL) subcutaneou s pen 18 units Subcutaneous Every morning For DIABETES 18 units 2023 Active 2023 32902 86225 0 Every morning Subcut aneous False Linezolid 600 mg tablet [generic] 600 mg By Mouth Every 12 hours For MRSA INFECTION L BKA 600 mg 08/28 Inactiv e 2023 58229 24047 1 Every 12 hours By Mouth False [...] one-time order For Diabetes 2023 Active 2023 64619 58027 9 4 times a day Subcut aneous False Cefpodoxime 200 mg tablet [generic] 400 mg By Mouth Twice daily For MRSA INFECTION L BKA 400 mg 08/28 Inactiv e 2023 57418 25457 0 Twice daily By Mouth False Brimonidine 0.1 % eye drops [generic] 1 drop Both Eyes Twice daily For glaucoma 1 drop 2023 Active 2023 79297 21781 0 Twice daily Both Eyes False Metoprolol succinate ER 50 mg tablet,exte nded release 24 hr [generic] 50 mg By Mouth Once daily HOLD FOR SBP <100, or pulse <60 For HTN 50 mg 2023 Active 2023 60579 46798 1 Once daily By Mouth False Amlodipine 2.5 mg tablet [generic] 2.5 mg By Mouth Once daily For HTN 2.5 mg 2023 Active 2023 22913 65202 5 Once daily By Mouth False Docusate sodium 100 mg capsule [generic] 100mg By Mouth Twice daily as needed For constipation HOLD FOR LOOSE STOOLS 100mg 2023 Active 2023 69798 51075 1 Twice daily as needed By Mouth False Atorvastati n 40 mg tablet [generic] 40mg By Mouth Once daily For HDL 40mg 08/26 Inactiv e 2023 54672 09731 5 Once daily By Mouth False Tylenol 325 mg tablet 2 tabs By Mouth Every 4 hours as needed For Pain DO NOT EXCEED 3000 MG APAP/24 Hours 2 tabs 2023 Active 2023 97603 40146 0 Every 4 hours as needed By Mouth False Tylenol 325 mg tablet 2 tabs By Mouth Every 4 hours as needed For Fever >100 DO NOT EXCEED 3000 MG APAP/24 Hours 2 tabs 2023 Active 2023 02793 50228 0 Every 4 hours as needed By Mouth False Dulcolax (bisacodyl) 10 mg rectal suppository One Suppository per rectum PRN if Milk of Magnisia ineffective. Give on day 5 of no BM 1 sup 2023 Active 2023 00295 09481 1 Daily as needed Rectal False Fleet Enema 19 gram-7 gram/118 mL Administer per rectum PRN one time if dulcolax suppository not effective. Give on day 6 of no BM 1 2023 Active 2023 05921 19925 6 Daily as needed Rectal False Dextrose 50 % in water (D50W) intravenous solution [generic] Dextrose 50% evonne 20-50 ml (slow push) Intravenous if Glucagon not effective after 15 minutes. CALL 911 for ED Evaluation. 50% evonne 2023 Active 2023 22258 47945 9 Intrav enous False Glucagon (HCl) Emergency Kit 1 mg solution for injection Administer Glucagon 1 mg Intramuscular if 15 minutes after GLucose Gel is administered Glucose remains less than 70 1 mg 2023 Active 2023 43867 58901 2 Intram uscula r False Glucose Gel 40 % oral gel [Dextrose] PRN If resident is unable to swallow (with or without symptoms) and Glucose results less than 70 give GLucose 40% Gel 1 tube orally - Recheck Glucose 15 minutes after administratio n. 1 tube 2023 Active 2023 51042 40621 8 By Mouth False Milk of Magnesia 400 mg/5 mL oral suspension [Magnesium hydroxide] PRN 30ml By Mouth Daily as needed for constipation one time daily if no BM, on day 4 of no BM (PRN refer to instructions) For Constipation 30 mL 2023 Active 2023 18056 86681 6 Daily as needed By Mouth False Atorvastati n 40 mg tablet [generic] 08/26 Inactiv e 2023 81082 25503 5 Atorvastati n 40 mg tablet [generic] 40mg By Mouth Once daily For HDL 40mg 2023 Active 2023 46243 56598 5 Once daily By Mouth False Insulin aspart (U-100) 100 unit/mL (3 mL) subcutaneou s pen [generic] 15 units Subcutaneous 1 time For dm 15 units 08/26 Inactiv e 2023 90027 10672 5 1 time Subcut aneous False Humalog KwikPen (U-100) Insulin 100 unit/mL subcutaneou s 15 units Subcutaneous 1 time For dm 15 units 08/27 Inactiv e 2023 55557 31441 9 1 time Subcut aneous False Linezolid 600 mg tablet [generic] 600 mg By Mouth Every 12 hours For MRSA INFECTION L BKA 600 mg 09/06 Active 2023 35561 23065 1 Every 12 hours By Mouth False Cefpodoxime 200 mg tablet [generic] 400 mg By Mouth Twice daily For MRSA INFECTION L BKA 400 mg 08/31 Active 2023 80934 09863 0 Twice daily By Mouth False MediHoney HCS 4 1/2in X 4 1/2in bandage Cleanse area with NSS, apply one medihoney hydrocolloid dressing, non adherent dressing, kerlix secure with paper tape daily. For wound stage III 1 2023 Active 2023 46054 58580 1 Once daily Topica l False Problems Code Description Start Date End Date Status D64.9 Anemia, unspecified 08/25/2024 Activ e I25.10 Atherosclerotic hear t disease of [place] coronary artery without angina pectoris 08/25/2024 Active [...] weight Temperature SpO2 Blood Sugar Pulse Respirations 23784 8 67.00 mm[Hg] - Sitting 145.00 mm[Hg] - Sitting 98.50 Forehead Scan 96.00 % 81.00/ min 16.00/min 40027 004 60433 2 67.00 mm[Hg] - Sitting 145.00 mm[Hg] - Sitting 98.50 Tympanic 81.00/ min 16.00/min 23563 004 11300 5 56.00 mm[Hg] - Sitting 142.00 mm[Hg] - Sitting 136.40 NI 100.20 Tympanic 96.00 % 92.00/ min 18.00/min 09387 004 18543 6 58414 004 41325 4 143.00 mg/dL 23515 0 97.80 Tympanic 005 87263 7 60.00 mm[Hg] - Sitting 140.00 mm[Hg] - Sitting 98.00 Tympanic 84.00/ min 18.00/min 83285 005 74674 0 63.00 mm[Hg] - Sitting 141.00 mm[Hg] - Sitting 98.20 Tympanic 92.00 % 63.00/ min 16.00/min 69725 005 32866 8 69.00 mm[Hg] - Sitting 106.00 mm[Hg] - Sitting 97.20 Tympanic 005 77476 7 69.00/ min 16.00/min 27950 005 16246 3 69.00 mm[Hg] - Sitting 106.00 mm[Hg] - Sitting 98.20 Tympanic 69.00/ min 16.00/min 73409 005 61949 1 367.00 mg/dL 54946 005 27573 2 97.20 Tympanic 03428 005 97410 4 97.20 Tympanic 42909 005 70282 0 69.00 mm[Hg] - Sitting 106.00 mm[Hg] - Sitting 69.00/ min 29850 005 40231 3 452.00 mg/dL 42062 005 55608 3 452.00 mg/dL 13804 005 49541 5 352.00 mg/dL 09653 005 04696 3 352.00 mg/dL 34309 005 59818 7 98.20 Tympanic 81336 005 3 101.00 mg/dL 19031 005 8 101.00 mg/dL 64441 006 74766 4 66.00 mm[Hg] - Sitting 107.00 mm[Hg] - Sitting 98.00 Tympanic 66.00/ min 18.00/min 22237 006 69297 0 62.00 mm[Hg] - Sitting 162.00 mm[Hg] - Sitting 98.20 Tympanic 96.00 % 60.00/ min 16.00/min 09596 006 25256 4 62.00 mm[Hg] - Sitting 162.00 mm[Hg] - Sitting 98.00 Tympanic 70.00/ min 18.00/min 35101 006 62670 8 62.00 mm[Hg] - Sitting 162.00 mm[Hg] - Sitting 98.20 Tympanic 70.00/ min 18.00/min 81680 006 16829 2 66.00 mm[Hg] - Sitting 132.00 mm[Hg] - Sitting 98.60 Tympanic 74.00/ min 16.00/min 67972 006 20683 5 159.00 mg/dL 87132 006 47955 1 159.00 mg/dL 68709 006 41586 8 98.00 Tympanic 59945 006 74118 2 62.00 mm[Hg] - Sitting 162.00 mm[Hg] - Sitting 70.00/ min 81877 006 06954 7 264.00 mg/dL 20866 006 36700 7 264.00 mg/dL 93067 006 19054 4 196.00 mg/dL 79381 006 43720 3 98.20 Tympanic 00808 006 09879 6 271.00 mg/dL 53965 007 37383 3 97.20 Tympanic 43253 007 79976 2 63.00 mm[Hg] - Sitting 132.00 mm[Hg] - Sitting 98.50 Tympanic 94.00 % 66.00/ min 16.00/min 57104 007 65838 5 188.00 mg/dL 95704 007 13402 2 188.00 mg/dL 06114 007 27946 2 188.00 mg/dL 35350 007 37867 7 97.20 Tympanic 96213 007 68735 6 97.20 Tympanic 11530 007 69301 5 67.00 mm[Hg] - Sitting 152.00 mm[Hg] - Sitting 68.00/ min 48558 007 68881 0 141.00 mg/dL 56367 007 43864 3 141.00 mg/dL 08666 007 50696 1 366.00 mg/dL 45760 007 29168 7 366.00 mg/dL 38004 007 34578 7 98.00 Tympanic 73342 007 78981 6 324.00 mg/dL 09983 007 12727 3 98.00 Tympanic 00040 007 35985 7 324.00 mg/dL 59630 008 63181 0 98.00 Tympanic 86269 008 52726 5 137.00 mg/dL 52403 008 70174 7 137.00 mg/dL 00464 008 11158 2 97.90 Tympanic 66793 008 87943 1 137.00 mg/dL 46463 008 76500 8 97.90 Tympanic 41332 008 78666 5 67.00 mm[Hg] - Sitting 124.00 /min
--- OUTSIDE RECORDS SUMMARY | 2024-10-03 11:21 | External Medical Summary | Continuity Of Care Document ---
Author Name Unknown Address [address] [address] Organization [facility] () Care Team Providers Care Peanut Butter Maker Name Role Phone DO Machado Amy Primary Care Provider [phone] Allergies Allergy Reaction Start Date End Date [...] Day 3 0.1 mL 08/29 Active 2023 94276 38967 0 1 time Intrad ermal False Tubersol 5 tub. unit/0.1 mL intradermal injection solution [Tuberculin PPD] 0.1mL Intradermal 1 time For PPD 2nd Step Give 2nd Step PPD Day 1 and Read results Day 3 (schedule 7 days after 1st READ) 0.1mL 09/08 Active 2023 27264 10496 0 1 time Intrad ermal False Humalog [...] order For Diabetes 08/25 Inactiv e 2023 36092 71732 9 4 times a day Subcut aneous False Aspirin 325 mg tablet [generic] 325 By Mouth Twice daily For Anticoagulati on 325 09/25 Active 2023 81057 33749 1 Twice daily By Mouth False Ferrous sulfate 325 mg (65 mg iron) tablet [generic] 325 By Mouth Once daily For anemia 325 2023 Active 2023 53200 04190 5 Once daily By Mouth False Linezolid 600 mg tablet [generic] 600 mg By Mouth Every 12 hours For MRSA INFECTION L BKA 600 mg 08/25 Inactiv e 2023 94932 54074 1 Every 12 hours By Mouth False Cefpodoxime 200 mg tablet [generic] 400 mg By Mouth Twice daily For MRSA INFECTION L BKA 400 mg 08/25 Inactiv e 2023 28068 03388 0 Twice daily By Mouth False Coenzyme Q10 100 mg tablet [generic] 100 mg By Mouth Once daily For SUPP 100 mg 2023 Active 2023 93255 17988 0 Once daily By Mouth False Levothyroxi ne 50 mcg tablet [generic] 50mcg By Mouth Once daily For hypothyroidis m 50mcg 2023 Active 2023 58612 14574 0 Once daily By Mouth False One A Day Men Complete 240 mcg-25 mcg-300 mcg tablet 1 tab By Mouth Once daily For supplement 1 tab 2023 Active 2023 08544 46191 1 Once daily By Mouth False Cholecalcif adalberto (vitamin D3) 50 mcg (2,000 unit) tablet [generic] 1 TAB By Mouth Once daily For SUPP 1 TAB 2023 Active 2023 93034 49089 1 Once daily By Mouth False Cetirizine 10 mg tablet [generic] 1 TAB By Mouth At bedtime For Allergies 1 TAB 2023 Active 2023 76651 52648 0 At bedtime By Mouth False Timolol maleate 0.25 % eye drops [generic] 1 drop Both Eyes Twice daily For glaucoma 1 drop 2023 Active 2023 48165 57082 5 Twice daily Both Eyes False Alendronate 35 mg tablet [generic] 35mg By Mouth Every week For SIADH 35mg 2023 Active 2023 57987 72915 5 Every week By Mouth False Lantus Solostar U-100 Insulin 100 unit/mL (3 mL) subcutaneou s pen 18 units Subcutaneous Every morning For DIABETES 18 units 08/25 Inactiv e 2023 38117 21995 0 Every morning Subcut aneous False Lantus Solostar U-100 Insulin 100 unit/mL (3 mL) subcutaneou s pen 18 units Subcutaneous Every morning For DIABETES 18 units 2023 Active 2023 22698 16620 0 Every morning Subcut aneous False Linezolid 600 mg tablet [generic] 600 mg By Mouth Every 12 hours For MRSA INFECTION L BKA 600 mg 08/28 Inactiv e 2023 82073 30312 1 Every 12 hours By Mouth False [...] one-time order For Diabetes 2023 Active 2023 74563 39619 9 4 times a day Subcut aneous False Cefpodoxime 200 mg tablet [generic] 400 mg By Mouth Twice daily For MRSA INFECTION L BKA 400 mg 08/28 Inactiv e 2023 99103 58322 0 Twice daily By Mouth False Brimonidine 0.1 % eye drops [generic] 1 drop Both Eyes Twice daily For glaucoma 1 drop 2023 Active 2023 01468 05523 0 Twice daily Both Eyes False Metoprolol succinate ER 50 mg tablet,exte nded release 24 hr [generic] 50 mg By Mouth Once daily HOLD FOR SBP <100, or pulse <60 For HTN 50 mg 2023 Active 2023 09428 91724 1 Once daily By Mouth False Amlodipine 2.5 mg tablet [generic] 2.5 mg By Mouth Once daily For HTN 2.5 mg 2023 Active 2023 73367 61379 5 Once daily By Mouth False Docusate sodium 100 mg capsule [generic] 100mg By Mouth Twice daily as needed For constipation HOLD FOR LOOSE STOOLS 100mg 2023 Active 2023 05918 38083 1 Twice daily as needed By Mouth False Atorvastati n 40 mg tablet [generic] 40mg By Mouth Once daily For HDL 40mg 08/26 Inactiv e 2023 03634 81224 5 Once daily By Mouth False Tylenol 325 mg tablet 2 tabs By Mouth Every 4 hours as needed For Pain DO NOT EXCEED 3000 MG APAP/24 Hours 2 tabs 2023 Active 2023 40683 01337 0 Every 4 hours as needed By Mouth False Tylenol 325 mg tablet 2 tabs By Mouth Every 4 hours as needed For Fever >100 DO NOT EXCEED 3000 MG APAP/24 Hours 2 tabs 2023 Active 2023 00885 77097 0 Every 4 hours as needed By Mouth False Dulcolax (bisacodyl) 10 mg rectal suppository One Suppository per rectum PRN if Milk of Magnisia ineffective. Give on day 5 of no BM 1 sup 2023 Active 2023 19932 88512 1 Daily as needed Rectal False Fleet Enema 19 gram-7 gram/118 mL Administer per rectum PRN one time if dulcolax suppository not effective. Give on day 6 of no BM 1 2023 Active 2023 48779 61452 6 Daily as needed Rectal False Dextrose 50 % in water (D50W) intravenous solution [generic] Dextrose 50% evonne 20-50 ml (slow push) Intravenous if Glucagon not effective after 15 minutes. CALL 911 for ED Evaluation. 50% evonne 2023 Active 2023 29194 73028 9 Intrav enous False Glucagon (HCl) Emergency Kit 1 mg solution for injection Administer Glucagon 1 mg Intramuscular if 15 minutes after GLucose Gel is administered Glucose remains less than 70 1 mg 2023 Active 2023 36487 90356 2 Intram uscula r False Glucose Gel 40 % oral gel [Dextrose] PRN If resident is unable to swallow (with or without symptoms) and Glucose results less than 70 give GLucose 40% Gel 1 tube orally - Recheck Glucose 15 minutes after administratio n. 1 tube 2023 Active 2023 49268 19404 8 By Mouth False Milk of Magnesia 400 mg/5 mL oral suspension [Magnesium hydroxide] PRN 30ml By Mouth Daily as needed for constipation one time daily if no BM, on day 4 of no BM (PRN refer to instructions) For Constipation 30 mL 2023 Active 2023 12338 66961 6 Daily as needed By Mouth False Atorvastati n 40 mg tablet [generic] 08/26 Inactiv e 2023 58336 36481 5 Atorvastati n 40 mg tablet [generic] 40mg By Mouth Once daily For HDL 40mg 2023 Active 2023 23937 30914 5 Once daily By Mouth False Insulin aspart (U-100) 100 unit/mL (3 mL) subcutaneou s pen [generic] 15 units Subcutaneous 1 time For dm 15 units 08/26 Inactiv e 2023 92146 70020 5 1 time Subcut aneous False Humalog KwikPen (U-100) Insulin 100 unit/mL subcutaneou s 15 units Subcutaneous 1 time For dm 15 units 08/27 Inactiv e 2023 01980 40694 9 1 time Subcut aneous False Linezolid 600 mg tablet [generic] 600 mg By Mouth Every 12 hours For MRSA INFECTION L BKA 600 mg 09/06 Active 2023 11598 44493 1 Every 12 hours By Mouth False Cefpodoxime 200 mg tablet [generic] 400 mg By Mouth Twice daily For MRSA INFECTION L BKA 400 mg 08/31 Active 2023 25556 02756 0 Twice daily By Mouth False MediHoney HCS 4 1/2in X 4 1/2in bandage Cleanse area with NSS, apply one medihoney hydrocolloid dressing, non adherent dressing, kerlix secure with paper tape daily. For wound stage III 1 2023 Active 2023 61529 60288 1 Once daily Topica l False Problems [...] weight Temperature SpO2 Blood Sugar Pulse Respirations 66999 8 67.00 mm[Hg] - Sitting 145.00 mm[Hg] - Sitting 98.50 Forehead Scan 96.00 % 81.00/ min 16.00/min 04561 004 97360 2 67.00 mm[Hg] - Sitting 145.00 mm[Hg] - Sitting 98.50 Tympanic 81.00/ min 16.00/min 33585 004 25832 5 56.00 mm[Hg] - Sitting 142.00 mm[Hg] - Sitting 136.40 NI 100.20 Tympanic 96.00 % 92.00/ min 18.00/min 38159 004 84725 6 004 39211 4 143.00 mg/dL 73641 0 97.80 Tympanic 005 50107 7 60.00 mm[Hg] - Sitting 140.00 mm[Hg] - Sitting 98.00 Tympanic 84.00/ min 18.00/min 26254 005 25396 0 63.00 mm[Hg] - Sitting 141.00 mm[Hg] - Sitting 98.20 Tympanic 92.00 % 63.00/ min 16.00/min 97888 005 71938 8 69.00 mm[Hg] - Sitting 106.00 mm[Hg] - Sitting 97.20 Tympanic 005 76409 7 69.00/ min 16.00/min 72685 005 00276 3 69.00 mm[Hg] - Sitting 106.00 mm[Hg] - Sitting 98.20 Tympanic 69.00/ min 16.00/min 17146 005 72158 1 367.00 mg/dL 01164 005 49807 2 97.20 Tympanic 91990 005 41815 4 97.20 Tympanic 22100 005 44193 0 69.00 mm[Hg] - Sitting 106.00 mm[Hg] - Sitting 69.00/ min 83865 005 73758 3 452.00 mg/dL 42395 005 29445 3 452.00 mg/dL 85269 005 80942 5 352.00 mg/dL 84546 005 75560 3 352.00 mg/dL 78639 005 96054 7 98.20 Tympanic 00779 005 3 101.00 mg/dL 93877 005 8 101.00 mg/dL 83676 006 67455 4 66.00 mm[Hg] - Sitting 107.00 mm[Hg] - Sitting 98.00 Tympanic 66.00/ min 18.00/min 48928 006 49950 0 62.00 mm[Hg] - Sitting 162.00 mm[Hg] - Sitting 98.20 Tympanic 96.00 % 60.00/ min 16.00/min 71148 006 16682 4 62.00 mm[Hg] - Sitting 162.00 mm[Hg] - Sitting 98.00 Tympanic 70.00/ min 18.00/min 70818 006 07175 8 62.00 mm[Hg] - Sitting 162.00 mm[Hg] - Sitting 98.20 Tympanic 70.00/ min 18.00/min 00040 006 01575 2 66.00 mm[Hg] - Sitting 132.00 mm[Hg] - Sitting 98.60 Tympanic 74.00/ min 16.00/min 43563 006 06879 5 159.00 mg/dL 72806 006 92620 1 159.00 mg/dL 32001 006 81295 8 98.00 Tympanic 68460 006 94572 2 62.00 mm[Hg] - Sitting 162.00 mm[Hg] - Sitting 70.00/ min 75796 006 34988 7 264.00 mg/dL
--- OUTSIDE RECORDS SUMMARY | 2024-10-03 11:21 | External Medical Summary | Continuity Of Care Document ---
Author Name Unknown Address [address] [address] Organization [facility] () Care Team Providers Care Human[employer] Department Chair Name Role Phone DO Machado Amy Primary Care Provider [phone] Allergies Allergy Reaction Start Date End Date [...] Day 3 0.1 mL 08/29 Active 2023 85637 46602 0 1 time Intrad ermal False Tubersol 5 tub. unit/0.1 mL intradermal injection solution [Tuberculin PPD] 0.1mL Intradermal 1 time For PPD 2nd Step Give 2nd Step PPD Day 1 and Read results Day 3 (schedule 7 days after 1st READ) 0.1mL 09/08 Active 2023 21869 39673 0 1 time Intrad ermal False Humalog [...] order For Diabetes 08/25 Inactiv e 2023 70987 20125 9 4 times a day Subcut aneous False Aspirin 325 mg tablet [generic] 325 By Mouth Twice daily For Anticoagulati on 325 09/25 Active 2023 26649 27843 1 Twice daily By Mouth False Ferrous sulfate 325 mg (65 mg iron) tablet [generic] 325 By Mouth Once daily For anemia 325 2023 Active 2023 39204 11017 5 Once daily By Mouth False Linezolid 600 mg tablet [generic] 600 mg By Mouth Every 12 hours For MRSA INFECTION L BKA 600 mg 08/25 Inactiv e 2023 87283 39073 1 Every 12 hours By Mouth False Cefpodoxime 200 mg tablet [generic] 400 mg By Mouth Twice daily For MRSA INFECTION L BKA 400 mg 08/25 Inactiv e 2023 22869 03054 0 Twice daily By Mouth False Coenzyme Q10 100 mg tablet [generic] 100 mg By Mouth Once daily For SUPP 100 mg 2023 Active 2023 59232 71672 0 Once daily By Mouth False Levothyroxi ne 50 mcg tablet [generic] 50mcg By Mouth Once daily For hypothyroidis m 50mcg 2023 Active 2023 84364 18815 0 Once daily By Mouth False One A Day Men Complete 240 mcg-25 mcg-300 mcg tablet 1 tab By Mouth Once daily For supplement 1 tab 2023 Active 2023 23937 21653 1 Once daily By Mouth False Cholecalcif adalberto (vitamin D3) 50 mcg (2,000 unit) tablet [generic] 1 TAB By Mouth Once daily For SUPP 1 TAB 2023 Active 2023 35829 40748 1 Once daily By Mouth False Cetirizine 10 mg tablet [generic] 1 TAB By Mouth At bedtime For Allergies 1 TAB 2023 Active 2023 63917 71770 0 At bedtime By Mouth False Timolol maleate 0.25 % eye drops [generic] 1 drop Both Eyes Twice daily For glaucoma 1 drop 2023 Active 2023 80437 53394 5 Twice daily Both Eyes False Alendronate 35 mg tablet [generic] 35mg By Mouth Every week For SIADH 35mg 2023 Active 2023 76696 32213 5 Every week By Mouth False Lantus Solostar U-100 Insulin 100 unit/mL (3 mL) subcutaneou s pen 18 units Subcutaneous Every morning For DIABETES 18 units 08/25 Inactiv e 2023 40646 09509 0 Every morning Subcut aneous False Lantus Solostar U-100 Insulin 100 unit/mL (3 mL) subcutaneou s pen 18 units Subcutaneous Every morning For DIABETES 18 units 2023 Active 2023 73581 41892 0 Every morning Subcut aneous False Linezolid 600 mg tablet [generic] 600 mg By Mouth Every 12 hours For MRSA INFECTION L BKA 600 mg 08/28 Inactiv e 2023 88887 56373 1 Every 12 hours By Mouth False [...] one-time order For Diabetes 2023 Active 2023 38157 05888 9 4 times a day Subcut aneous False Cefpodoxime 200 mg tablet [generic] 400 mg By Mouth Twice daily For MRSA INFECTION L BKA 400 mg 08/28 Inactiv e 2023 54463 26713 0 Twice daily By Mouth False Brimonidine 0.1 % eye drops [generic] 1 drop Both Eyes Twice daily For glaucoma 1 drop 2023 Active 2023 54222 71355 0 Twice daily Both Eyes False Metoprolol succinate ER 50 mg tablet,exte nded release 24 hr [generic] 50 mg By Mouth Once daily HOLD FOR SBP <100, or pulse <60 For HTN 50 mg 2023 Active 2023 99800 51545 1 Once daily By Mouth False Amlodipine 2.5 mg tablet [generic] 2.5 mg By Mouth Once daily For HTN 2.5 mg 2023 Active 2023 53842 16801 5 Once daily By Mouth False Docusate sodium 100 mg capsule [generic] 100mg By Mouth Twice daily as needed For constipation HOLD FOR LOOSE STOOLS 100mg 2023 Active 2023 26940 11467 1 Twice daily as needed By Mouth False Atorvastati n 40 mg tablet [generic] 40mg By Mouth Once daily For HDL 40mg 08/26 Inactiv e 2023 83697 27900 5 Once daily By Mouth False Tylenol 325 mg tablet 2 tabs By Mouth Every 4 hours as needed For Pain DO NOT EXCEED 3000 MG APAP/24 Hours 2 tabs 2023 Active 2023 56251 03910 0 Every 4 hours as needed By Mouth False Tylenol 325 mg tablet 2 tabs By Mouth Every 4 hours as needed For Fever >100 DO NOT EXCEED 3000 MG APAP/24 Hours 2 tabs 2023 Active 2023 69399 79426 0 Every 4 hours as needed By Mouth False Dulcolax (bisacodyl) 10 mg rectal suppository One Suppository per rectum PRN if Milk of Magnisia ineffective. Give on day 5 of no BM 1 sup 2023 Active 2023 91530 21016 1 Daily as needed Rectal False Fleet Enema 19 gram-7 gram/118 mL Administer per rectum PRN one time if dulcolax suppository not effective. Give on day 6 of no BM 1 2023 Active 2023 06497 91059 6 Daily as needed Rectal False Dextrose 50 % in water (D50W) intravenous solution [generic] Dextrose 50% evonne 20-50 ml (slow push) Intravenous if Glucagon not effective after 15 minutes. CALL 911 for ED Evaluation. 50% evonne 2023 Active 2023 00557 89004 9 Intrav enous False Glucagon (HCl) Emergency Kit 1 mg solution for injection Administer Glucagon 1 mg Intramuscular if 15 minutes after GLucose Gel is administered Glucose remains less than 70 1 mg 2023 Active 2023 94352 05727 2 Intram uscula r False Glucose Gel 40 % oral gel [Dextrose] PRN If resident is unable to swallow (with or without symptoms) and Glucose results less than 70 give GLucose 40% Gel 1 tube orally - Recheck Glucose 15 minutes after administratio n. 1 tube 2023 Active 2023 07333 40593 8 By Mouth False Milk of Magnesia 400 mg/5 mL oral suspension [Magnesium hydroxide] PRN 30ml By Mouth Daily as needed for constipation one time daily if no BM, on day 4 of no BM (PRN refer to instructions) For Constipation 30 mL 2023 Active 2023 84302 07007 6 Daily as needed By Mouth False Atorvastati n 40 mg tablet [generic] 08/26 Inactiv e 2023 96596 89352 5 Atorvastati n 40 mg tablet [generic] 40mg By Mouth Once daily For HDL 40mg 2023 Active 2023 30431 43448 5 Once daily By Mouth False Insulin aspart (U-100) 100 unit/mL (3 mL) subcutaneou s pen [generic] 15 units Subcutaneous 1 time For dm 15 units 08/26 Inactiv e 2023 40736 17085 5 1 time Subcut aneous False Humalog KwikPen (U-100) Insulin 100 unit/mL subcutaneou s 15 units Subcutaneous 1 time For dm 15 units 08/27 Inactiv e 2023 62606 69780 9 1 time Subcut aneous False Linezolid 600 mg tablet [generic] 600 mg By Mouth Every 12 hours For MRSA INFECTION L BKA 600 mg 09/06 Active 2023 83898 72056 1 Every 12 hours By Mouth False Cefpodoxime 200 mg tablet [generic] 400 mg By Mouth Twice daily For MRSA INFECTION L BKA 400 mg 08/31 Active 2023 39873 90598 0 Twice daily By Mouth False MediHoney HCS 4 1/2in X 4 1/2in bandage Cleanse area with NSS, apply one medihoney hydrocolloid dressing, non adherent dressing, kerlix secure with paper tape daily. For wound stage III 1 2023 Active 2023 72326 88795 1 Once daily Topica l False Problems [...] weight Temperature SpO2 Blood Sugar Pulse Respirations 60148 8 67.00 mm[Hg] - Sitting 145.00 mm[Hg] - Sitting 98.50 Forehead Scan 96.00 % 81.00/ min 16.00/min 96214 004 70980 2 67.00 mm[Hg] - Sitting 145.00 mm[Hg] - Sitting 98.50 Tympanic 81.00/ min 16.00/min 99731 004 07399 5 56.00 mm[Hg] - Sitting 142.00 mm[Hg] - Sitting 136.40 NI 100.20 Tympanic 96.00 % 92.00/ min 18.00/min 37557 004 22406 6 004 15449 4 143.00 mg/dL 49949 0 97.80 Tympanic 005 60826 7 60.00 mm[Hg] - Sitting 140.00 mm[Hg] - Sitting 98.00 Tympanic 84.00/ min 18.00/min 45953 005 38751 0 63.00 mm[Hg] - Sitting 141.00 mm[Hg] - Sitting 98.20 Tympanic 92.00 % 63.00/ min 16.00/min 86838 005 20085 8 69.00 mm[Hg] - Sitting 106.00 mm[Hg] - Sitting 97.20 Tympanic 005 66586 7 69.00/ min 16.00/min 34537 005 45397 3 69.00 mm[Hg] - Sitting 106.00 mm[Hg] - Sitting 98.20 Tympanic 69.00/ min 16.00/min 46248 005 94477 1 367.00 mg/dL 17719 005 09932 2 97.20 Tympanic 57789 005 18012 4 97.20 Tympanic 71307 005 69543 0 69.00 mm[Hg] - Sitting 106.00 mm[Hg] - Sitting 69.00/ min 44828 005 97165 3 452.00 mg/dL 48470 005 18985 3 452.00 mg/dL 21207 005 06575 5 352.00 mg/dL 72324 005 72568 3 352.00 mg/dL 07650 005 79824 7 98.20 Tympanic 89555 005 3 101.00 mg/dL 34205 005 8 101.00 mg/dL 64103 006 80135 4 66.00 mm[Hg] - Sitting 107.00 mm[Hg] - Sitting 98.00 Tympanic 66.00/ min 18.00/min 42983 006 76257 0 62.00 mm[Hg] - Sitting 162.00 mm[Hg] - Sitting 98.20 Tympanic 96.00 % 60.00/ min 16.00/min 86880 006 52647 4 62.00 mm[Hg] - Sitting 162.00 mm[Hg] - Sitting 98.00 Tympanic 70.00/ min 18.00/min 43585 006 88696 8 62.00 mm[Hg] - Sitting 162.00 mm[Hg] - Sitting 98.20 Tympanic 70.00/ min 18.00/min 31779 006 41542 2 66.00 mm[Hg] - Sitting 132.00 mm[Hg] - Sitting 98.60 Tympanic 74.00/ min 16.00/min 47766 006 20344 5 159.00 mg/dL 25676 006 68699 1 159.00 mg/dL 92189 006 66237 8 98.00 Tympanic 47429 006 66396 2 70.00/ min
--- OUTSIDE RECORDS SUMMARY | 2024-10-03 11:21 | External Medical Summary | Continuity Of Care Document ---
Author Name Unknown Address [address] [address] Organization [facility] () Care Team Providers Care Nut Roaster Helper Name Role Phone DO Machado Amy Primary Care Provider [phone] Allergies Allergy Reaction Start Date End Date [...] 3 0.1 mL 08/29 Inactiv e 2023 57225 21779 0 1 time Intrad ermal False Tubersol 5 tub. unit/0.1 mL intradermal injection solution [Tuberculin PPD] 0.1mL Intradermal 1 time For PPD 2nd Step Give 2nd Step PPD Day 1 and Read results Day 3 (schedule 7 days after 1st READ) 0.1mL 09/08 Active 2023 39647 80743 0 1 time Intrad ermal False Humalog [...] order For Diabetes 08/25 Inactiv e 2023 25908 80562 9 4 times a day Subcut aneous False Aspirin 325 mg tablet [generic] 325 By Mouth Twice daily For Anticoagulati on 325 09/25 Active 2023 49215 34074 1 Twice daily By Mouth False Ferrous sulfate 325 mg (65 mg iron) tablet [generic] 325 By Mouth Once daily For anemia 325 2023 Active 2023 06104 70462 5 Once daily By Mouth False Linezolid 600 mg tablet [generic] 600 mg By Mouth Every 12 hours For MRSA INFECTION L BKA 600 mg 08/25 Inactiv e 2023 51806 61404 1 Every 12 hours By Mouth False Cefpodoxime 200 mg tablet [generic] 400 mg By Mouth Twice daily For MRSA INFECTION L BKA 400 mg 08/25 Inactiv e 2023 58815 66921 0 Twice daily By Mouth False Coenzyme Q10 100 mg tablet [generic] 100 mg By Mouth Once daily For SUPP 100 mg 2023 Active 2023 33241 43017 0 Once daily By Mouth False Levothyroxi ne 50 mcg tablet [generic] 50mcg By Mouth Once daily For hypothyroidis m 50mcg 2023 Active 2023 94240 10683 0 Once daily By Mouth False One A Day Men Complete 240 mcg-25 mcg-300 mcg tablet 1 tab By Mouth Once daily For supplement 1 tab 2023 Active 2023 28136 48961 1 Once daily By Mouth False Cholecalcif adalberto (vitamin D3) 50 mcg (2,000 unit) tablet [generic] 1 TAB By Mouth Once daily For SUPP 1 TAB 2023 Active 2023 87601 17728 1 Once daily By Mouth False Cetirizine 10 mg tablet [generic] 1 TAB By Mouth At bedtime For Allergies 1 TAB 2023 Active 2023 89079 77490 0 At bedtime By Mouth False Timolol maleate 0.25 % eye drops [generic] 1 drop Both Eyes Twice daily For glaucoma 1 drop 2023 Active 2023 06813 13741 5 Twice daily Both Eyes False Alendronate 35 mg tablet [generic] 35mg By Mouth Every week For SIADH 35mg 2023 Active 2023 55656 90928 5 Every week By Mouth False Lantus Solostar U-100 Insulin 100 unit/mL (3 mL) subcutaneou s pen 18 units Subcutaneous Every morning For DIABETES 18 units 08/25 Inactiv e 2023 12557 61366 0 Every morning Subcut aneous False Lantus Solostar U-100 Insulin 100 unit/mL (3 mL) subcutaneou s pen 18 units Subcutaneous Every morning For DIABETES 18 units 2023 Active 2023 15399 43398 0 Every morning Subcut aneous False Linezolid 600 mg tablet [generic] 600 mg By Mouth Every 12 hours For MRSA INFECTION L BKA 600 mg 08/28 Inactiv e 2023 16788 01032 1 Every 12 hours By Mouth False [...] one-time order For Diabetes 2023 Active 2023 55270 77435 9 4 times a day Subcut aneous False Cefpodoxime 200 mg tablet [generic] 400 mg By Mouth Twice daily For MRSA INFECTION L BKA 400 mg 08/28 Inactiv e 2023 82892 99525 0 Twice daily By Mouth False Brimonidine 0.1 % eye drops [generic] 1 drop Both Eyes Twice daily For glaucoma 1 drop 2023 Active 2023 26980 26156 0 Twice daily Both Eyes False Metoprolol succinate ER 50 mg tablet,exte nded release 24 hr [generic] 50 mg By Mouth Once daily HOLD FOR SBP <100, or pulse <60 For HTN 50 mg 2023 Active 2023 56740 86364 1 Once daily By Mouth False Amlodipine 2.5 mg tablet [generic] 2.5 mg By Mouth Once daily For HTN 2.5 mg 2023 Active 2023 41953 36832 5 Once daily By Mouth False Docusate sodium 100 mg capsule [generic] 100mg By Mouth Twice daily as needed For constipation HOLD FOR LOOSE STOOLS 100mg 2023 Active 2023 77280 96734 1 Twice daily as needed By Mouth False Atorvastati n 40 mg tablet [generic] 40mg By Mouth Once daily For HDL 40mg 08/26 Inactiv e 2023 97159 20514 5 Once daily By Mouth False Tylenol 325 mg tablet 2 tabs By Mouth Every 4 hours as needed For Pain DO NOT EXCEED 3000 MG APAP/24 Hours 2 tabs 2023 Active 2023 05675 68125 0 Every 4 hours as needed By Mouth False Tylenol 325 mg tablet 2 tabs By Mouth Every 4 hours as needed For Fever >100 DO NOT EXCEED 3000 MG APAP/24 Hours 2 tabs 2023 Active 2023 41509 84078 0 Every 4 hours as needed By Mouth False Dulcolax (bisacodyl) 10 mg rectal suppository One Suppository per rectum PRN if Milk of Magnisia ineffective. Give on day 5 of no BM 1 sup 2023 Active 2023 15021 34860 1 Daily as needed Rectal False Fleet Enema 19 gram-7 gram/118 mL Administer per rectum PRN one time if dulcolax suppository not effective. Give on day 6 of no BM 1 2023 Active 2023 03189 35156 6 Daily as needed Rectal False Dextrose 50 % in water (D50W) intravenous solution [generic] Dextrose 50% evonne 20-50 ml (slow push) Intravenous if Glucagon not effective after 15 minutes. CALL 911 for ED Evaluation. 50% evonne 2023 Active 2023 68634 18903 9 Intrav enous False Glucagon (HCl) Emergency Kit 1 mg solution for injection Administer Glucagon 1 mg Intramuscular if 15 minutes after GLucose Gel is administered Glucose remains less than 70 1 mg 2023 Active 2023 18561 77989 2 Intram uscula r False Glucose Gel 40 % oral gel [Dextrose] PRN If resident is unable to swallow (with or without symptoms) and Glucose results less than 70 give GLucose 40% Gel 1 tube orally - Recheck Glucose 15 minutes after administratio n. 1 tube 2023 Active 2023 59462 28941 8 By Mouth False Milk of Magnesia 400 mg/5 mL oral suspension [Magnesium hydroxide] PRN 30ml By Mouth Daily as needed for constipation one time daily if no BM, on day 4 of no BM (PRN refer to instructions) For Constipation 30 mL 2023 Active 2023 69953 58062 6 Daily as needed By Mouth False Atorvastati n 40 mg tablet [generic] 08/26 Inactiv e 2023 92245 95524 5 Atorvastati n 40 mg tablet [generic] 40mg By Mouth Once daily For HDL 40mg 2023 Active 2023 98983 33947 5 Once daily By Mouth False Insulin aspart (U-100) 100 unit/mL (3 mL) subcutaneou s pen [generic] 15 units Subcutaneous 1 time For dm 15 units 08/26 Inactiv e 2023 79889 73370 5 1 time Subcut aneous False Humalog KwikPen (U-100) Insulin 100 unit/mL subcutaneou s 15 units Subcutaneous 1 time For dm 15 units 08/27 Inactiv e 2023 30703 62901 9 1 time Subcut aneous False Linezolid 600 mg tablet [generic] 600 mg By Mouth Every 12 hours For MRSA INFECTION L BKA 600 mg 09/06 Active 2023 35283 60785 1 Every 12 hours By Mouth False Cefpodoxime 200 mg tablet [generic] 400 mg By Mouth Twice daily For MRSA INFECTION L BKA 400 mg 08/31 Active 2023 96769 93978 0 Twice daily By Mouth False MediHoney HCS 4 1/2in X 4 1/2in bandage Cleanse area with NSS, apply one medihoney hydrocolloid dressing, non adherent dressing, kerlix secure with paper tape daily. For wound stage III 1 2023 Active 2023 45183 53843 1 Once daily Topica l False Problems [...] weight Temperature SpO2 Blood Sugar Pulse Respirations 50051 8 67.00 mm[Hg] - Sitting 145.00 mm[Hg] - Sitting 98.50 Forehead Scan 96.00 % 81.00/ min 16.00/min 43958 004 16864 2 67.00 mm[Hg] - Sitting 145.00 mm[Hg] - Sitting 98.50 Tympanic 81.00/ min 16.00/min 88567 004 93650 5 56.00 mm[Hg] - Sitting 142.00 mm[Hg] - Sitting 136.40 NI 100.20 Tympanic 96.00 % 92.00/ min 18.00/min 18359 004 29679 6 44631 004 07153 4 143.00 mg/dL 63056 0 97.80 Tympanic 005 57081 7 60.00 mm[Hg] - Sitting 140.00 mm[Hg] - Sitting 98.00 Tympanic 84.00/ min 18.00/min 10091 005 07909 0 63.00 mm[Hg] - Sitting 141.00 mm[Hg] - Sitting 98.20 Tympanic 92.00 % 63.00/ min 16.00/min 31365 005 42870 8 69.00 mm[Hg] - Sitting 106.00 mm[Hg] - Sitting 97.20 Tympanic 005 86345 7 69.00/ min 16.00/min 24313 005 18398 3 69.00 mm[Hg] - Sitting 106.00 mm[Hg] - Sitting 98.20 Tympanic 69.00/ min 16.00/min 07619 005 24725 1 367.00 mg/dL 74775 005 95113 2 97.20 Tympanic 77593 005 68905 4 97.20 Tympanic 90100 005 79101 0 69.00 mm[Hg] - Sitting 106.00 mm[Hg] - Sitting 69.00/ min 07547 005 78984 3 452.00 mg/dL 20871 005 08362 3 452.00 mg/dL 74699 005 43777 5 352.00 mg/dL 39695 005 37986 3 352.00 mg/dL 37411 005 48205 7 98.20 Tympanic 24371 005 3 101.00 mg/dL 92493 005 8 101.00 mg/dL 14681 006 40192 4 66.00 mm[Hg] - Sitting 107.00 mm[Hg] - Sitting 98.00 Tympanic 66.00/ min 18.00/min 98270 006 61504 0 62.00 mm[Hg] - Sitting 162.00 mm[Hg] - Sitting 98.20 Tympanic 96.00 % 60.00/ min 16.00/min 80965 006 37346 4 62.00 mm[Hg] - Sitting 162.00 mm[Hg] - Sitting 98.00 Tympanic 70.00/ min 18.00/min 53260 006 29690 8 62.00 mm[Hg] - Sitting 162.00 mm[Hg] - Sitting 98.20 Tympanic 70.00/ min 18.00/min 95493 006 64349 2 66.00 mm[Hg] - Sitting 132.00 mm[Hg] - Sitting 98.60 Tympanic 74.00/ min 16.00/min 62737 006 28770 5 159.00 mg/dL 94629 006 58959 1 159.00 mg/dL 81540 006 06267 8 98.00 Tympanic 75141 006 81930 2 62.00 mm[Hg] - Sitting 162.00 mm[Hg] - Sitting 70.00/ min 98102 006 36299 7 264.00 mg/dL 97278 006 42925 7 264.00 mg/dL 15215 006 28535 4 196.00 mg/dL 97427 006 98841 3 98.20 Tympanic 75117 006 69735 6 271.00 mg/dL 98881 007 73010 3 97.20 Tympanic 50127 007 06887 2 63.00 mm[Hg] - Sitting 132.00 mm[Hg] - Sitting 98.50 Tympanic 94.00 % 66.00/ min 16.00/min 07532 007 87269 5 188.00 mg/dL 82556 007 84629 2 188.00 mg/dL 66391 007 47395 2 188.00 mg/dL 75823 007 76443 7 97.20 Tympanic 18629 007 98463 6 97.20 Tympanic 21714 007 21980 5 67.00 mm[Hg] - Sitting 152.00 mm[Hg] - Sitting 68.00/ min 37296 007 37421 0 141.00 mg/dL 52747 007 60310 3 141.00 mg/dL 27873 007 12846 1 366.00 mg/dL 50218 007 39611 7 366.00 mg/dL 52415 007 17592 7 98.00 Tympanic 03733 007 69342 6 324.00 mg/dL 42615 007 96874 3 98.00 Tympanic 67562 007 73908 7 324.00 mg/dL 02702 008 55758 0 98.00 Tympanic 27726 008 18490 5 137.00 mg/dL 55302 008 59582 7 137.00 mg/dL 16286 008 50298 2 97.90 Tympanic 02940 008 48725 1 137.00 mg/dL 27331 008 19212 8 97.90 Tympanic 69616 008 33097 5 67.00 mm[Hg] - Sitting 124.00 /min 53786 008 43741 6 212.00 mg/dL 40406 008 30880 6 212.00 mg/dL
--- OUTSIDE RECORDS SUMMARY | 2024-10-03 11:21 | External Medical Summary | Continuity Of Care Document ---
Author Name Unknown Address [address] [address] Organization [facility] () Care Team Providers Care [employer] Laboratory Assistant Name Role Phone DO Machado Amy Primary Care Provider [phone] Allergies Allergy Reaction Start Date End Date [...] 3 0.1 mL 08/29 Inactiv e 2023 09597 04795 0 1 time Intrad ermal False Tubersol 5 tub. unit/0.1 mL intradermal injection solution [Tuberculin PPD] 0.1mL Intradermal 1 time For PPD 2nd Step Give 2nd Step PPD Day 1 and Read results Day 3 (schedule 7 days after 1st READ) 0.1mL 09/08 Active 2023 66511 45581 0 1 time Intrad ermal False Humalog [...] order For Diabetes 08/25 Inactiv e 2023 20730 08883 9 4 times a day Subcut aneous False Aspirin 325 mg tablet [generic] 325 By Mouth Twice daily For Anticoagulati on 325 09/25 Active 2023 98988 08390 1 Twice daily By Mouth False Ferrous sulfate 325 mg (65 mg iron) tablet [generic] 325 By Mouth Once daily For anemia 325 2023 Active 2023 30889 73078 5 Once daily By Mouth False Linezolid 600 mg tablet [generic] 600 mg By Mouth Every 12 hours For MRSA INFECTION L BKA 600 mg 08/25 Inactiv e 2023 54678 58486 1 Every 12 hours By Mouth False Cefpodoxime 200 mg tablet [generic] 400 mg By Mouth Twice daily For MRSA INFECTION L BKA 400 mg 08/25 Inactiv e 2023 16341 33917 0 Twice daily By Mouth False Coenzyme Q10 100 mg tablet [generic] 100 mg By Mouth Once daily For SUPP 100 mg 2023 Active 2023 20957 13982 0 Once daily By Mouth False Levothyroxi ne 50 mcg tablet [generic] 50mcg By Mouth Once daily For hypothyroidis m 50mcg 2023 Active 2023 90023 66617 0 Once daily By Mouth False One A Day Men Complete 240 mcg-25 mcg-300 mcg tablet 1 tab By Mouth Once daily For supplement 1 tab 2023 Active 2023 39841 86311 1 Once daily By Mouth False Cholecalcif adalberto (vitamin D3) 50 mcg (2,000 unit) tablet [generic] 1 TAB By Mouth Once daily For SUPP 1 TAB 2023 Active 2023 28160 53662 1 Once daily By Mouth False Cetirizine 10 mg tablet [generic] 1 TAB By Mouth At bedtime For Allergies 1 TAB 2023 Active 2023 89212 92150 0 At bedtime By Mouth False Timolol maleate 0.25 % eye drops [generic] 1 drop Both Eyes Twice daily For glaucoma 1 drop 2023 Active 2023 96905 51141 5 Twice daily Both Eyes False Alendronate 35 mg tablet [generic] 35mg By Mouth Every week For SIADH 35mg 2023 Active 2023 87786 78935 5 Every week By Mouth False Lantus Solostar U-100 Insulin 100 unit/mL (3 mL) subcutaneou s pen 18 units Subcutaneous Every morning For DIABETES 18 units 08/25 Inactiv e 2023 70022 28797 0 Every morning Subcut aneous False Lantus Solostar U-100 Insulin 100 unit/mL (3 mL) subcutaneou s pen 18 units Subcutaneous Every morning For DIABETES 18 units 2023 Active 2023 00957 66553 0 Every morning Subcut aneous False Linezolid 600 mg tablet [generic] 600 mg By Mouth Every 12 hours For MRSA INFECTION L BKA 600 mg 08/28 Inactiv e 2023 69963 06932 1 Every 12 hours By Mouth False [...] one-time order For Diabetes 2023 Active 2023 76440 87148 9 4 times a day Subcut aneous False Cefpodoxime 200 mg tablet [generic] 400 mg By Mouth Twice daily For MRSA INFECTION L BKA 400 mg 08/28 Inactiv e 2023 16661 20481 0 Twice daily By Mouth False Brimonidine 0.1 % eye drops [generic] 1 drop Both Eyes Twice daily For glaucoma 1 drop 2023 Active 2023 57480 50772 0 Twice daily Both Eyes False Metoprolol succinate ER 50 mg tablet,exte nded release 24 hr [generic] 50 mg By Mouth Once daily HOLD FOR SBP <100, or pulse <60 For HTN 50 mg 2023 Active 2023 24348 62627 1 Once daily By Mouth False Amlodipine 2.5 mg tablet [generic] 2.5 mg By Mouth Once daily For HTN 2.5 mg 2023 Active 2023 94570 68131 5 Once daily By Mouth False Docusate sodium 100 mg capsule [generic] 100mg By Mouth Twice daily as needed For constipation HOLD FOR LOOSE STOOLS 100mg 2023 Active 2023 34253 99301 1 Twice daily as needed By Mouth False Atorvastati n 40 mg tablet [generic] 40mg By Mouth Once daily For HDL 40mg 08/26 Inactiv e 2023 80920 21426 5 Once daily By Mouth False Tylenol 325 mg tablet 2 tabs By Mouth Every 4 hours as needed For Pain DO NOT EXCEED 3000 MG APAP/24 Hours 2 tabs 2023 Active 2023 68953 21029 0 Every 4 hours as needed By Mouth False Tylenol 325 mg tablet 2 tabs By Mouth Every 4 hours as needed For Fever >100 DO NOT EXCEED 3000 MG APAP/24 Hours 2 tabs 2023 Active 2023 81106 17337 0 Every 4 hours as needed By Mouth False Dulcolax (bisacodyl) 10 mg rectal suppository One Suppository per rectum PRN if Milk of Magnisia ineffective. Give on day 5 of no BM 1 sup 2023 Active 2023 09356 10858 1 Daily as needed Rectal False Fleet Enema 19 gram-7 gram/118 mL Administer per rectum PRN one time if dulcolax suppository not effective. Give on day 6 of no BM 1 2023 Active 2023 31829 48404 6 Daily as needed Rectal False Dextrose 50 % in water (D50W) intravenous solution [generic] Dextrose 50% evonne 20-50 ml (slow push) Intravenous if Glucagon not effective after 15 minutes. CALL 911 for ED Evaluation. 50% evonne 2023 Active 2023 15877 09712 9 Intrav enous False Glucagon (HCl) Emergency Kit 1 mg solution for injection Administer Glucagon 1 mg Intramuscular if 15 minutes after GLucose Gel is administered Glucose remains less than 70 1 mg 2023 Active 2023 36426 36458 2 Intram uscula r False Glucose Gel 40 % oral gel [Dextrose] PRN If resident is unable to swallow (with or without symptoms) and Glucose results less than 70 give GLucose 40% Gel 1 tube orally - Recheck Glucose 15 minutes after administratio n. 1 tube 2023 Active 2023 46249 62459 8 By Mouth False Milk of Magnesia 400 mg/5 mL oral suspension [Magnesium hydroxide] PRN 30ml By Mouth Daily as needed for constipation one time daily if no BM, on day 4 of no BM (PRN refer to instructions) For Constipation 30 mL 2023 Active 2023 74738 97463 6 Daily as needed By Mouth False Atorvastati n 40 mg tablet [generic] 08/26 Inactiv e 2023 46013 88081 5 Atorvastati n 40 mg tablet [generic] 40mg By Mouth Once daily For HDL 40mg 2023 Active 2023 20554 74747 5 Once daily By Mouth False Insulin aspart (U-100) 100 unit/mL (3 mL) subcutaneou s pen [generic] 15 units Subcutaneous 1 time For dm 15 units 08/26 Inactiv e 2023 38569 93082 5 1 time Subcut aneous False Humalog KwikPen (U-100) Insulin 100 unit/mL subcutaneou s 15 units Subcutaneous 1 time For dm 15 units 08/27 Inactiv e 2023 74048 95009 9 1 time Subcut aneous False Linezolid 600 mg tablet [generic] 600 mg By Mouth Every 12 hours For MRSA INFECTION L BKA 600 mg 09/06 Active 2023 01380 00653 1 Every 12 hours By Mouth False Cefpodoxime 200 mg tablet [generic] 400 mg By Mouth Twice daily For MRSA INFECTION L BKA 400 mg 08/31 Active 2023 51199 75073 0 Twice daily By Mouth False MediHoney HCS 4 1/2in X 4 1/2in bandage Cleanse area with NSS, apply one medihoney hydrocolloid dressing, non adherent dressing, kerlix secure with paper tape daily. For wound stage III 1 2023 Active 2023 89053 69611 1 Once daily Topica l False Problems [...] weight Temperature SpO2 Blood Sugar Pulse Respirations 54633 8 67.00 mm[Hg] - Sitting 145.00 mm[Hg] - Sitting 98.50 Forehead Scan 96.00 % 81.00/ min 16.00/min 02695 004 55047 2 67.00 mm[Hg] - Sitting 145.00 mm[Hg] - Sitting 98.50 Tympanic 81.00/ min 16.00/min 10979 004 88428 5 56.00 mm[Hg] - Sitting 142.00 mm[Hg] - Sitting 136.40 NI 100.20 Tympanic 96.00 % 92.00/ min 18.00/min 29427 004 62815 6 07075 004 89885 4 143.00 mg/dL 87501 0 97.80 Tympanic 005 53280 7 60.00 mm[Hg] - Sitting 140.00 mm[Hg] - Sitting 98.00 Tympanic 84.00/ min 18.00/min 97192 005 73289 0 63.00 mm[Hg] - Sitting 141.00 mm[Hg] - Sitting 98.20 Tympanic 92.00 % 63.00/ min 16.00/min 98455 005 85920 8 69.00 mm[Hg] - Sitting 106.00 mm[Hg] - Sitting 97.20 Tympanic 005 91557 7 69.00/ min 16.00/min 78370 005 24114 3 69.00 mm[Hg] - Sitting 106.00 mm[Hg] - Sitting 98.20 Tympanic 69.00/ min 16.00/min 11081 005 11116 1 367.00 mg/dL 55723 005 01516 2 97.20 Tympanic 67453 005 30632 4 97.20 Tympanic 60532 005 12923 0 69.00 mm[Hg] - Sitting 106.00 mm[Hg] - Sitting 69.00/ min 11220 005 01833 3 452.00 mg/dL 99375 005 02513 3 452.00 mg/dL 26376 005 76751 5 352.00 mg/dL 50659 005 70226 3 352.00 mg/dL 22701 005 66804 7 98.20 Tympanic 56386 005 3 101.00 mg/dL 93135 005 8 101.00 mg/dL 96085 006 25233 4 66.00 mm[Hg] - Sitting 107.00 mm[Hg] - Sitting 98.00 Tympanic 66.00/ min 18.00/min 28373 006 60968 0 62.00 mm[Hg] - Sitting 162.00 mm[Hg] - Sitting 98.20 Tympanic 96.00 % 60.00/ min 16.00/min 68855 006 11654 4 62.00 mm[Hg] - Sitting 162.00 mm[Hg] - Sitting 98.00 Tympanic 70.00/ min 18.00/min 24512 006 35737 8 62.00 mm[Hg] - Sitting 162.00 mm[Hg] - Sitting 98.20 Tympanic 70.00/ min 18.00/min 72034 006 42010 2 66.00 mm[Hg] - Sitting 132.00 mm[Hg] - Sitting 98.60 Tympanic 74.00/ min 16.00/min 08232 006 69954 5 159.00 mg/dL 09495 006 05077 1 159.00 mg/dL 04907 006 56023 8 98.00 Tympanic 26100 006 09572 2 62.00 mm[Hg] - Sitting 162.00 mm[Hg] - Sitting 70.00/ min 31863 006 82032 7 264.00 mg/dL 42834 006 10697 7 264.00 mg/dL 98643 006 62685 4 196.00 mg/dL 43536 006 97670 3 98.20 Tympanic 11801 006 86580 6 271.00 mg/dL 19792 007 63846 3 97.20 Tympanic 81847 007 66840 2 63.00 mm[Hg] - Sitting 132.00 mm[Hg] - Sitting 98.50 Tympanic 94.00 % 66.00/ min 16.00/min 33769 007 87618 5 188.00 mg/dL 88096 007 18385 2 188.00 mg/dL 03325 007 24494 2 188.00 mg/dL 18633 007 11578 7 97.20 Tympanic 55204 007 15160 6 97.20 Tympanic 10828 007 39670 5 67.00 mm[Hg] - Sitting 152.00 mm[Hg] - Sitting 68.00/ min 33025 007 43970 0 141.00 mg/dL 39299 007 28666 3 141.00 mg/dL 87592 007 05770 1 366.00 mg/dL 75260 007 06779 7 366.00 mg/dL 81906 007 43262 7 98.00 Tympanic 82897 007 52726 6 324.00 mg/dL 87065 007 19957 3 98.00 Tympanic 02461 007 35161 7 324.00 mg/dL 27993 008 29181 0 98.00 Tympanic 60443 008 69459 5 137.00 mg/dL 06056 008 05247 7 137.00 mg/dL 65047 008 95845 2 97.90 Tympanic 02137 008 21074 1 137.00 mg/dL 58824 008 87262 8 97.90 Tympanic 83209 008 58743 5 67.00 mm[Hg] - Sitting 124.00 /min
--- OUTSIDE RECORDS SUMMARY | 2024-10-03 11:21 | External Medical Summary | Continuity Of Care Document ---
Author Name Unknown Address [address] [address] Organization [facility] () Care Team Providers Care Job Hand Name Role Phone DO Machado Amy Primary Care Provider [phone] Allergies Allergy Reaction Start Date End Date [...] 3 0.1 mL 08/29 Inactiv e 2023 80593 78956 0 1 time Intrad ermal False Tubersol 5 tub. unit/0.1 mL intradermal injection solution [Tuberculin PPD] 0.1mL Intradermal 1 time For PPD 2nd Step Give 2nd Step PPD Day 1 and Read results Day 3 (schedule 7 days after 1st READ) 0.1mL 09/08 Active 2023 39980 28074 0 1 time Intrad ermal False Humalog [...] order For Diabetes 08/25 Inactiv e 2023 90665 77128 9 4 times a day Subcut aneous False Aspirin 325 mg tablet [generic] 325 By Mouth Twice daily For Anticoagulati on 325 09/25 Active 2023 10688 56618 1 Twice daily By Mouth False Ferrous sulfate 325 mg (65 mg iron) tablet [generic] 325 By Mouth Once daily For anemia 325 2023 Active 2023 10090 04085 5 Once daily By Mouth False Linezolid 600 mg tablet [generic] 600 mg By Mouth Every 12 hours For MRSA INFECTION L BKA 600 mg 08/25 Inactiv e 2023 12253 00781 1 Every 12 hours By Mouth False Cefpodoxime 200 mg tablet [generic] 400 mg By Mouth Twice daily For MRSA INFECTION L BKA 400 mg 08/25 Inactiv e 2023 11587 15498 0 Twice daily By Mouth False Coenzyme Q10 100 mg tablet [generic] 100 mg By Mouth Once daily For SUPP 100 mg 2023 Active 2023 64081 68139 0 Once daily By Mouth False Levothyroxi ne 50 mcg tablet [generic] 50mcg By Mouth Once daily For hypothyroidis m 50mcg 2023 Active 2023 52940 33460 0 Once daily By Mouth False One A Day Men Complete 240 mcg-25 mcg-300 mcg tablet 1 tab By Mouth Once daily For supplement 1 tab 2023 Active 2023 67178 38060 1 Once daily By Mouth False Cholecalcif adalberto (vitamin D3) 50 mcg (2,000 unit) tablet [generic] 1 TAB By Mouth Once daily For SUPP 1 TAB 2023 Active 2023 87431 78412 1 Once daily By Mouth False Cetirizine 10 mg tablet [generic] 1 TAB By Mouth At bedtime For Allergies 1 TAB 2023 Active 2023 61372 61872 0 At bedtime By Mouth False Timolol maleate 0.25 % eye drops [generic] 1 drop Both Eyes Twice daily For glaucoma 1 drop 2023 Active 2023 13285 03734 5 Twice daily Both Eyes False Alendronate 35 mg tablet [generic] 35mg By Mouth Every week For SIADH 35mg 2023 Active 2023 09194 04702 5 Every week By Mouth False Lantus Solostar U-100 Insulin 100 unit/mL (3 mL) subcutaneou s pen 18 units Subcutaneous Every morning For DIABETES 18 units 08/25 Inactiv e 2023 52124 12573 0 Every morning Subcut aneous False Lantus Solostar U-100 Insulin 100 unit/mL (3 mL) subcutaneou s pen 18 units Subcutaneous Every morning For DIABETES 18 units 2023 Active 2023 63547 97911 0 Every morning Subcut aneous False Linezolid 600 mg tablet [generic] 600 mg By Mouth Every 12 hours For MRSA INFECTION L BKA 600 mg 08/28 Inactiv e 2023 84946 40431 1 Every 12 hours By Mouth False [...] one-time order For Diabetes 2023 Active 2023 17549 73142 9 4 times a day Subcut aneous False Cefpodoxime 200 mg tablet [generic] 400 mg By Mouth Twice daily For MRSA INFECTION L BKA 400 mg 08/28 Inactiv e 2023 51002 92087 0 Twice daily By Mouth False Brimonidine 0.1 % eye drops [generic] 1 drop Both Eyes Twice daily For glaucoma 1 drop 2023 Active 2023 84293 40880 0 Twice daily Both Eyes False Metoprolol succinate ER 50 mg tablet,exte nded release 24 hr [generic] 50 mg By Mouth Once daily HOLD FOR SBP <100, or pulse <60 For HTN 50 mg 2023 Active 2023 63611 86047 1 Once daily By Mouth False Amlodipine 2.5 mg tablet [generic] 2.5 mg By Mouth Once daily For HTN 2.5 mg 2023 Active 2023 06167 98606 5 Once daily By Mouth False Docusate sodium 100 mg capsule [generic] 100mg By Mouth Twice daily as needed For constipation HOLD FOR LOOSE STOOLS 100mg 2023 Active 2023 33388 62791 1 Twice daily as needed By Mouth False Atorvastati n 40 mg tablet [generic] 40mg By Mouth Once daily For HDL 40mg 08/26 Inactiv e 2023 53757 32927 5 Once daily By Mouth False Tylenol 325 mg tablet 2 tabs By Mouth Every 4 hours as needed For Pain DO NOT EXCEED 3000 MG APAP/24 Hours 2 tabs 2023 Active 2023 89022 30928 0 Every 4 hours as needed By Mouth False Tylenol 325 mg tablet 2 tabs By Mouth Every 4 hours as needed For Fever >100 DO NOT EXCEED 3000 MG APAP/24 Hours 2 tabs 2023 Active 2023 53942 83618 0 Every 4 hours as needed By Mouth False Dulcolax (bisacodyl) 10 mg rectal suppository One Suppository per rectum PRN if Milk of Magnisia ineffective. Give on day 5 of no BM 1 sup 2023 Active 2023 16391 84899 1 Daily as needed Rectal False Fleet Enema 19 gram-7 gram/118 mL Administer per rectum PRN one time if dulcolax suppository not effective. Give on day 6 of no BM 1 2023 Active 2023 22259 14759 6 Daily as needed Rectal False Dextrose 50 % in water (D50W) intravenous solution [generic] Dextrose 50% evonne 20-50 ml (slow push) Intravenous if Glucagon not effective after 15 minutes. CALL 911 for ED Evaluation. 50% evonne 2023 Active 2023 56470 94746 9 Intrav enous False Glucagon (HCl) Emergency Kit 1 mg solution for injection Administer Glucagon 1 mg Intramuscular if 15 minutes after GLucose Gel is administered Glucose remains less than 70 1 mg 2023 Active 2023 43885 25578 2 Intram uscula r False Glucose Gel 40 % oral gel [Dextrose] PRN If resident is unable to swallow (with or without symptoms) and Glucose results less than 70 give GLucose 40% Gel 1 tube orally - Recheck Glucose 15 minutes after administratio n. 1 tube 2023 Active 2023 96280 91886 8 By Mouth False Milk of Magnesia 400 mg/5 mL oral suspension [Magnesium hydroxide] PRN 30ml By Mouth Daily as needed for constipation one time daily if no BM, on day 4 of no BM (PRN refer to instructions) For Constipation 30 mL 2023 Active 2023 17295 46654 6 Daily as needed By Mouth False Atorvastati n 40 mg tablet [generic] 08/26 Inactiv e 2023 21933 70084 5 Atorvastati n 40 mg tablet [generic] 40mg By Mouth Once daily For HDL 40mg 2023 Active 2023 66766 83427 5 Once daily By Mouth False Insulin aspart (U-100) 100 unit/mL (3 mL) subcutaneou s pen [generic] 15 units Subcutaneous 1 time For dm 15 units 08/26 Inactiv e 2023 73651 69115 5 1 time Subcut aneous False Humalog KwikPen (U-100) Insulin 100 unit/mL subcutaneou s 15 units Subcutaneous 1 time For dm 15 units 08/27 Inactiv e 2023 89531 92841 9 1 time Subcut aneous False Linezolid 600 mg tablet [generic] 600 mg By Mouth Every 12 hours For MRSA INFECTION L BKA 600 mg 09/06 Active 2023 57479 45028 1 Every 12 hours By Mouth False Cefpodoxime 200 mg tablet [generic] 400 mg By Mouth Twice daily For MRSA INFECTION L BKA 400 mg 08/31 Active 2023 96168 49343 0 Twice daily By Mouth False MediHoney HCS 4 1/2in X 4 1/2in bandage Cleanse area with NSS, apply one medihoney hydrocolloid dressing, non adherent dressing, kerlix secure with paper tape daily. For wound stage III 1 2023 Active 2023 03373 59033 1 Once daily Topica l False Problems Code Description Start Date End Date Status D64.9 Anemia, unspecified 08/25/2024 Activ e I25.10 Atherosclerotic hear t disease of [place] coronary artery without angina pectoris 08/25/2024 Active [...] weight Temperature SpO2 Blood Sugar Pulse Respirations 62681 8 67.00 mm[Hg] - Sitting 145.00 mm[Hg] - Sitting 98.50 Forehead Scan 96.00 % 81.00/ min 16.00/min 76438 004 18388 2 67.00 mm[Hg] - Sitting 145.00 mm[Hg] - Sitting 98.50 Tympanic 81.00/ min 16.00/min 54624 004 18235 5 56.00 mm[Hg] - Sitting 142.00 mm[Hg] - Sitting 136.40 NI 100.20 Tympanic 96.00 % 92.00/ min 18.00/min 90716 004 15945 6 82671 004 12438 4 143.00 mg/dL 41078 0 97.80 Tympanic 005 41078 7 60.00 mm[Hg] - Sitting 140.00 mm[Hg] - Sitting 98.00 Tympanic 84.00/ min 18.00/min 94997 005 66892 0 63.00 mm[Hg] - Sitting 141.00 mm[Hg] - Sitting 98.20 Tympanic 92.00 % 63.00/ min 16.00/min 34648 005 90901 8 69.00 mm[Hg] - Sitting 106.00 mm[Hg] - Sitting 97.20 Tympanic 005 55481 7 69.00/ min 16.00/min 51560 005 30080 3 69.00 mm[Hg] - Sitting 106.00 mm[Hg] - Sitting 98.20 Tympanic 69.00/ min 16.00/min 07355 005 37170 1 367.00 mg/dL 80520 005 32535 2 97.20 Tympanic 07700 005 62717 4 97.20 Tympanic 76125 005 95779 0 69.00 mm[Hg] - Sitting 106.00 mm[Hg] - Sitting 69.00/ min 32276 005 83210 3 452.00 mg/dL 86613 005 73129 3 452.00 mg/dL 44435 005 42854 5 352.00 mg/dL 60719 005 95064 3 352.00 mg/dL 62665 005 73029 7 98.20 Tympanic 61490 005 3 101.00 mg/dL 49664 005 8 101.00 mg/dL 26266 006 73404 4 66.00 mm[Hg] - Sitting 107.00 mm[Hg] - Sitting 98.00 Tympanic 66.00/ min 18.00/min 68521 006 09290 0 62.00 mm[Hg] - Sitting 162.00 mm[Hg] - Sitting 98.20 Tympanic 96.00 % 60.00/ min 16.00/min 11209 006 36099 4 62.00 mm[Hg] - Sitting 162.00 mm[Hg] - Sitting 98.00 Tympanic 70.00/ min 18.00/min 91730 006 31360 8 62.00 mm[Hg] - Sitting 162.00 mm[Hg] - Sitting 98.20 Tympanic 70.00/ min 18.00/min 35240 006 77997 2 66.00 mm[Hg] - Sitting 132.00 mm[Hg] - Sitting 98.60 Tympanic 74.00/ min 16.00/min 31704 006 17723 5 159.00 mg/dL 75381 006 73599 1 159.00 mg/dL 90265 006 86082 8 98.00 Tympanic 97803 006 47577 2 62.00 mm[Hg] - Sitting 162.00 mm[Hg] - Sitting 70.00/ min 09908 006 61083 7 264.00 mg/dL 43628 006 46045 7 264.00 mg/dL 06213 006 85098 4 196.00 mg/dL 04353 006 51478 3 98.20 Tympanic 04391 006 90623 6 271.00 mg/dL 57865 007 57073 3 97.20 Tympanic 58358 007 77431 2 63.00 mm[Hg] - Sitting 132.00 mm[Hg] - Sitting 98.50 Tympanic 94.00 % 66.00/ min 16.00/min 87678 007 23401 5 188.00 mg/dL 37150 007 84874 2 188.00 mg/dL 88645 007 55925 2 188.00 mg/dL 09514 007 70926 7 97.20 Tympanic 40278 007 54779 6 97.20 Tympanic 80345 007 29145 5 67.00 mm[Hg] - Sitting 152.00 mm[Hg] - Sitting 68.00/ min 46940 007 81217 0 141.00 mg/dL 28302 007 08118 3 141.00 mg/dL 96492 007 25067 1 366.00 mg/dL 20369 007 53500 7 366.00 mg/dL 44703 007 48720 7 98.00 Tympanic 99656 007 16895 6 324.00 mg/dL 59000 007 20898 3 98.00 Tympanic 73797 007 25286 7 324.00 mg/dL 57590 008 49431 0 98.00 Tympanic 48565 008 07240 2 97.90 Tympanic 04071 008 53725 0 98.20 Tympanic 66873 008 69088 5 137.00 mg/dL 30006 008 89587 7 137.00 mg/dL 76922 008 96062 2 97.90 Tympanic 47131 008 52371 1 137.00 mg/dL 89001 008 13991 8 97.90 Tympanic 05333 008 96412 5 67.00 mm[Hg] - Sitting 124.00 /min 40526 008 17841 6 212.00 mg/dL 63730 008 45451 6 212.00 mg/dL
--- OUTSIDE RECORDS SUMMARY | 2024-10-03 11:22 | External Medical Summary | Continuity Of Care Document ---
Author Name Unknown Address [address] [address] Organization [facility] () Care Team Providers Care Reverse Unit Operator Name Role Phone DO Machado Amy Primary Care Provider [phone] Allergies Allergy Reaction Start Date End Date [...] Day 3 0.1 mL 08/29 Active 2023 64143 23420 0 1 time Intrad ermal False Tubersol 5 tub. unit/0.1 mL intradermal injection solution [Tuberculin PPD] 0.1mL Intradermal 1 time For PPD 2nd Step Give 2nd Step PPD Day 1 and Read results Day 3 (schedule 7 days after 1st READ) 0.1mL 09/08 Active 2023 83416 69766 0 1 time Intrad ermal False Humalog [...] order For Diabetes 08/25 Inactiv e 2023 36677 88344 9 4 times a day Subcut aneous False Aspirin 325 mg tablet [generic] 325 By Mouth Twice daily For Anticoagulati on 325 09/25 Active 2023 88920 40518 1 Twice daily By Mouth False Ferrous sulfate 325 mg (65 mg iron) tablet [generic] 325 By Mouth Once daily For anemia 325 2023 Active 2023 67359 04065 5 Once daily By Mouth False Linezolid 600 mg tablet [generic] 600 mg By Mouth Every 12 hours For MRSA INFECTION L BKA 600 mg 08/25 Inactiv e 2023 40303 21752 1 Every 12 hours By Mouth False Cefpodoxime 200 mg tablet [generic] 400 mg By Mouth Twice daily For MRSA INFECTION L BKA 400 mg 08/25 Inactiv e 2023 33015 33489 0 Twice daily By Mouth False Coenzyme Q10 100 mg tablet [generic] 100 mg By Mouth Once daily For SUPP 100 mg 2023 Active 2023 58162 76748 0 Once daily By Mouth False Levothyroxi ne 50 mcg tablet [generic] 50mcg By Mouth Once daily For hypothyroidis m 50mcg 2023 Active 2023 38332 94610 0 Once daily By Mouth False One A Day Men Complete 240 mcg-25 mcg-300 mcg tablet 1 tab By Mouth Once daily For supplement 1 tab 2023 Active 2023 69798 64917 1 Once daily By Mouth False Cholecalcif adalberto (vitamin D3) 50 mcg (2,000 unit) tablet [generic] 1 TAB By Mouth Once daily For SUPP 1 TAB 2023 Active 2023 02409 11750 1 Once daily By Mouth False Cetirizine 10 mg tablet [generic] 1 TAB By Mouth At bedtime For Allergies 1 TAB 2023 Active 2023 92486 53425 0 At bedtime By Mouth False Timolol maleate 0.25 % eye drops [generic] 1 drop Both Eyes Twice daily For glaucoma 1 drop 2023 Active 2023 59143 00113 5 Twice daily Both Eyes False Alendronate 35 mg tablet [generic] 35mg By Mouth Every week For SIADH 35mg 2023 Active 2023 52110 44009 5 Every week By Mouth False Lantus Solostar U-100 Insulin 100 unit/mL (3 mL) subcutaneou s pen 18 units Subcutaneous Every morning For DIABETES 18 units 08/25 Inactiv e 2023 37050 78952 0 Every morning Subcut aneous False Lantus Solostar U-100 Insulin 100 unit/mL (3 mL) subcutaneou s pen 18 units Subcutaneous Every morning For DIABETES 18 units 2023 Active 2023 68290 77699 0 Every morning Subcut aneous False Linezolid 600 mg tablet [generic] 600 mg By Mouth Every 12 hours For MRSA INFECTION L BKA 600 mg 08/28 Inactiv e 2023 05536 22025 1 Every 12 hours By Mouth False [...] one-time order For Diabetes 2023 Active 2023 70608 72212 9 4 times a day Subcut aneous False Cefpodoxime 200 mg tablet [generic] 400 mg By Mouth Twice daily For MRSA INFECTION L BKA 400 mg 2023 Active 2023 58440 10658 0 Twice daily By Mouth False Brimonidine 0.1 % eye drops [generic] 1 drop Both Eyes Twice daily For glaucoma 1 drop 2023 Active 2023 69860 68944 0 Twice daily Both Eyes False Metoprolol succinate ER 50 mg tablet,exte nded release 24 hr [generic] 50 mg By Mouth Once daily HOLD FOR SBP <100, or pulse <60 For HTN 50 mg 2023 Active 2023 47328 07430 1 Once daily By Mouth False Amlodipine 2.5 mg tablet [generic] 2.5 mg By Mouth Once daily For HTN 2.5 mg 2023 Active 2023 67539 40850 5 Once daily By Mouth False Docusate sodium 100 mg capsule [generic] 100mg By Mouth Twice daily as needed For constipation HOLD FOR LOOSE STOOLS 100mg 2023 Active 2023 37792 69927 1 Twice daily as needed By Mouth False Atorvastati n 40 mg tablet [generic] 40mg By Mouth Once daily For HDL 40mg 08/26 Inactiv e 2023 76824 34559 5 Once daily By Mouth False Tylenol 325 mg tablet 2 tabs By Mouth Every 4 hours as needed For Pain DO NOT EXCEED 3000 MG APAP/24 Hours 2 tabs 2023 Active 2023 69365 43390 0 Every 4 hours as needed By Mouth False Tylenol 325 mg tablet 2 tabs By Mouth Every 4 hours as needed For Fever >100 DO NOT EXCEED 3000 MG APAP/24 Hours 2 tabs 2023 Active 2023 64646 94230 0 Every 4 hours as needed By Mouth False Dulcolax (bisacodyl) 10 mg rectal suppository One Suppository per rectum PRN if Milk of Magnisia ineffective. Give on day 5 of no BM 1 sup 2023 Active 2023 04640 03920 1 Daily as needed Rectal False Fleet Enema 19 gram-7 gram/118 mL Administer per rectum PRN one time if dulcolax suppository not effective. Give on day 6 of no BM 1 2023 Active 2023 22675 99775 6 Daily as needed Rectal False Dextrose 50 % in water (D50W) intravenous solution [generic] Dextrose 50% evonne 20-50 ml (slow push) Intravenous if Glucagon not effective after 15 minutes. CALL 911 for ED Evaluation. 50% evonne 2023 Active 2023 24286 27188 9 Intrav enous False Glucagon (HCl) Emergency Kit 1 mg solution for injection Administer Glucagon 1 mg Intramuscular if 15 minutes after GLucose Gel is administered Glucose remains less than 70 1 mg 2023 Active 2023 84413 40664 2 Intram uscula r False Glucose Gel 40 % oral gel [Dextrose] PRN If resident is unable to swallow (with or without symptoms) and Glucose results less than 70 give GLucose 40% Gel 1 tube orally - Recheck Glucose 15 minutes after administratio n. 1 tube 2023 Active 2023 94440 15443 8 By Mouth False Milk of Magnesia 400 mg/5 mL oral suspension [Magnesium hydroxide] PRN 30ml By Mouth Daily as needed for constipation one time daily if no BM, on day 4 of no BM (PRN refer to instructions) For Constipation 30 mL 2023 Active 2023 52809 65126 6 Daily as needed By Mouth False Atorvastati n 40 mg tablet [generic] 08/26 Inactiv e 2023 53117 05337 5 Atorvastati n 40 mg tablet [generic] 40mg By Mouth Once daily For HDL 40mg 2023 Active 2023 12770 30364 5 Once daily By Mouth False Insulin aspart (U-100) 100 unit/mL (3 mL) subcutaneou s pen [generic] 15 units Subcutaneous 1 time For dm 15 units 08/26 Inactiv e 2023 39985 18445 5 1 time Subcut aneous False Humalog KwikPen (U-100) Insulin 100 unit/mL subcutaneou s 15 units Subcutaneous 1 time For dm 15 units 08/27 Inactiv e 2023 89388 53684 9 1 time Subcut aneous False Linezolid 600 mg tablet [generic] 600 mg By Mouth Every 12 hours For MRSA INFECTION L BKA 600 mg 09/06 Active 2023 47261 37205 1 Every 12 hours By Mouth False MediHoney HCS 4 1/2in X 4 1/2in bandage Cleanse area with NSS, apply one medihoney hydrocolloid dressing, non adherent dressing, kerlix secure with paper tape daily. For wound stage III 1 2023 Active 2023 23375 71214 1 Once daily Topica l False Problems Code Description Start Date End Date Status D64.9 Anemia, unspecified 08/25/2024 Activ e I25.10 Atherosclerotic hear t disease of [place] coronary artery without angina pectoris 08/25/2024 Active [...] weight Temperature SpO2 Blood Sugar Pulse Respirations 13235 8 67.00 mm[Hg] - Sitting 145.00 mm[Hg] - Sitting 98.50 Forehead Scan 96.00 % 81.00/ min 16.00/min 80060 004 24216 2 67.00 mm[Hg] - Sitting 145.00 mm[Hg] - Sitting 98.50 Tympanic 81.00/ min 16.00/min 60277 004 48590 5 56.00 mm[Hg] - Sitting 142.00 mm[Hg] - Sitting 136.40 NI 100.20 Tympanic 96.00 % 92.00/ min 18.00/min 36380 004 58945 6 01880 004 51581 4 143.00 mg/dL 004 15188 0 97.80 Tympanic 23202 005 87944 7 60.00 mm[Hg] - Sitting 140.00 mm[Hg] - Sitting 98.00 Tympanic 84.00/ min 18.00/min 52238 005 81041 0 63.00 mm[Hg] - Sitting 141.00 mm[Hg] - Sitting 98.20 Tympanic 92.00 % 63.00/ min 16.00/min 89509 005 96137 8 69.00 mm[Hg] - Sitting 106.00 mm[Hg] - Sitting 97.20 Tympanic 23988 005 65891 7 69.00/ min 16.00/min 37812 005 75597 3 69.00 mm[Hg] - Sitting 106.00 mm[Hg] - Sitting 98.20 Tympanic 69.00/ min 16.00/min 79697 005 09373 1 367.00 mg/dL 10251 005 41452 2 97.20 Tympanic 06869 005 82184 4 97.20 Tympanic 86300 005 89635 0 69.00 mm[Hg] - Sitting 106.00 mm[Hg] - Sitting 69.00/ min 55710 005 78311 3 452.00 mg/dL 84123 005 14038 3 452.00 mg/dL 12387 005 25134 5 352.00 mg/dL 52007 005 40906 3 352.00 mg/dL 05850 005 22950 7 98.20 Tympanic 34480 005 87863 3 101.00 mg/dL 83652 005 29878 8 101.00 mg/dL 10564 006 77173 4 66.00 mm[Hg] - Sitting 107.00 mm[Hg] - Sitting 98.00 Tympanic 66.00/ min 18.00/min 94951 006 81482 0 62.00 mm[Hg] - Sitting 162.00 mm[Hg] - Sitting 98.20 Tympanic 96.00 % 60.00/ min 16.00/min 28705 006 01867 4 62.00 mm[Hg] - Sitting 162.00 mm[Hg] - Sitting 98.00 Tympanic 70.00/ min 18.00/min 05273 006 89838 8 62.00 mm[Hg] - Sitting 162.00 mm[Hg] - Sitting 98.20 Tympanic 70.00/ min 18.00/min 86828 006 34202 2 66.00 mm[Hg] - Sitting 132.00 mm[Hg] - Sitting 98.60 Tympanic 74.00/ min 16.00/min 05409 006 13149 5 159.00 mg/dL 17435 006 47181 1 159.00 mg/dL 55500 006 44018 8 98.00 Tympanic 84138 006 18394 2 62.00 mm[Hg] - Sitting 162.00 mm[Hg] - Sitting 70.00/ min 21004 006 28513 7 264.00 mg/dL 27594 006 39424 7 264.00 mg/dL 18673 006 26906 4 196.00 mg/dL 94995 006 13705 3 98.20 Tympanic 66196 006 45325 6 271.00 mg/dL 79125 007 48183 3 97.20 Tympanic 30346 007 78398 2 63.00 mm[Hg] - Sitting 132.00 mm[Hg] - Sitting 98.50 Tympanic 94.00 % 66.00/ min 16.00/min 85704 007 85362 5 188.00 mg/dL 60905 007 31068 2 188.00 mg/dL 58726 007 75980 2 188.00 mg/dL 51501 007 22962 7 97.20 Tympanic 21557 007 58836 6 97.20 Tympanic 28341 007 85354 5 67.00 mm[Hg] - Sitting 152.00 mm[Hg] - Sitting 68.00/ min 00377 007 81732 0 141.00 mg/dL 40542 007 55850 3 141.00 mg/dL 10439 007 87384 1 366.00 mg/dL 83273 007 42660 7 366.00 mg/dL
--- OUTSIDE RECORDS SUMMARY | 2024-10-03 11:22 | External Medical Summary | Continuity Of Care Document ---
Author Name Unknown Address [address] [address] Organization [facility] () Care Team Providers Care Eggs Inspector Name Role Phone DO Machado Amy Primary Care Provider [phone] Allergies Allergy Reaction Start Date End Date [...] Day 3 0.1 mL 08/29 Active 2023 28863 02856 0 1 time Intrad ermal False Tubersol 5 tub. unit/0.1 mL intradermal injection solution [Tuberculin PPD] 0.1mL Intradermal 1 time For PPD 2nd Step Give 2nd Step PPD Day 1 and Read results Day 3 (schedule 7 days after 1st READ) 0.1mL 09/08 Active 2023 53134 78044 0 1 time Intrad ermal False Humalog [...] order For Diabetes 08/25 Inactiv e 2023 43000 73410 9 4 times a day Subcut aneous False Aspirin 325 mg tablet [generic] 325 By Mouth Twice daily For Anticoagulati on 325 09/25 Active 2023 44264 03465 1 Twice daily By Mouth False Ferrous sulfate 325 mg (65 mg iron) tablet [generic] 325 By Mouth Once daily For anemia 325 2023 Active 2023 84363 32352 5 Once daily By Mouth False Linezolid 600 mg tablet [generic] 600 mg By Mouth Every 12 hours For MRSA INFECTION L BKA 600 mg 08/25 Inactiv e 2023 41472 69846 1 Every 12 hours By Mouth False Cefpodoxime 200 mg tablet [generic] 400 mg By Mouth Twice daily For MRSA INFECTION L BKA 400 mg 08/25 Inactiv e 2023 01156 95391 0 Twice daily By Mouth False Coenzyme Q10 100 mg tablet [generic] 100 mg By Mouth Once daily For SUPP 100 mg 2023 Active 2023 29763 44376 0 Once daily By Mouth False Levothyroxi ne 50 mcg tablet [generic] 50mcg By Mouth Once daily For hypothyroidis m 50mcg 2023 Active 2023 31083 43765 0 Once daily By Mouth False One A Day Men Complete 240 mcg-25 mcg-300 mcg tablet 1 tab By Mouth Once daily For supplement 1 tab 2023 Active 2023 30560 13035 1 Once daily By Mouth False Cholecalcif adalberto (vitamin D3) 50 mcg (2,000 unit) tablet [generic] 1 TAB By Mouth Once daily For SUPP 1 TAB 2023 Active 2023 55263 12353 1 Once daily By Mouth False Cetirizine 10 mg tablet [generic] 1 TAB By Mouth At bedtime For Allergies 1 TAB 2023 Active 2023 09897 08547 0 At bedtime By Mouth False Timolol maleate 0.25 % eye drops [generic] 1 drop Both Eyes Twice daily For glaucoma 1 drop 2023 Active 2023 05843 88769 5 Twice daily Both Eyes False Alendronate 35 mg tablet [generic] 35mg By Mouth Every week For SIADH 35mg 2023 Active 2023 04480 77003 5 Every week By Mouth False Lantus Solostar U-100 Insulin 100 unit/mL (3 mL) subcutaneou s pen 18 units Subcutaneous Every morning For DIABETES 18 units 08/25 Inactiv e 2023 77964 88202 0 Every morning Subcut aneous False Lantus Solostar U-100 Insulin 100 unit/mL (3 mL) subcutaneou s pen 18 units Subcutaneous Every morning For DIABETES 18 units 2023 Active 2023 12535 0 Every morning Subcut aneous False Linezolid 600 mg tablet [generic] 600 mg By Mouth Every 12 hours For MRSA INFECTION L BKA 600 mg 2023 Active 2023 21525 25141 1 Every 12 hours By Mouth False [...] one-time order For Diabetes 2023 Active 2023 16636 83995 9 4 times a day Subcut aneous False Cefpodoxime 200 mg tablet [generic] 400 mg By Mouth Twice daily For MRSA INFECTION L BKA 400 mg 2023 Active 2023 57788 66938 0 Twice daily By Mouth False Brimonidine 0.1 % eye drops [generic] 1 drop Both Eyes Twice daily For glaucoma 1 drop 2023 Active 2023 57202 20619 0 Twice daily Both Eyes False Metoprolol succinate ER 50 mg tablet,exte nded release 24 hr [generic] 50 mg By Mouth Once daily HOLD FOR SBP <100, or pulse <60 For HTN 50 mg 2023 Active 2023 57661 71082 1 Once daily By Mouth False Amlodipine 2.5 mg tablet [generic] 2.5 mg By Mouth Once daily For HTN 2.5 mg 2023 Active 2023 96004 31497 5 Once daily By Mouth False Docusate sodium 100 mg capsule [generic] 100mg By Mouth Twice daily as needed For constipation HOLD FOR LOOSE STOOLS 100mg 2023 Active 2023 51865 37015 1 Twice daily as needed By Mouth False Atorvastati n 40 mg tablet [generic] 40mg By Mouth Once daily For HDL 40mg 08/26 Inactiv e 2023 17240 12997 5 Once daily By Mouth False Tylenol 325 mg tablet 2 tabs By Mouth Every 4 hours as needed For Pain DO NOT EXCEED 3000 MG APAP/24 Hours 2 tabs 2023 Active 2023 20009 16092 0 Every 4 hours as needed By Mouth False Tylenol 325 mg tablet 2 tabs By Mouth Every 4 hours as needed For Fever >100 DO NOT EXCEED 3000 MG APAP/24 Hours 2 tabs 2023 Active 2023 10957 79865 0 Every 4 hours as needed By Mouth False Dulcolax (bisacodyl) 10 mg rectal suppository One Suppository per rectum PRN if Milk of Magnisia ineffective. Give on day 5 of no BM 1 sup 2023 Active 2023 83757 97988 1 Daily as needed Rectal False Fleet Enema 19 gram-7 gram/118 mL Administer per rectum PRN one time if dulcolax suppository not effective. Give on day 6 of no BM 1 2023 Active 2023 23348 31464 6 Daily as needed Rectal False Dextrose 50 % in water (D50W) intravenous solution [generic] Dextrose 50% evonne 20-50 ml (slow push) Intravenous if Glucagon not effective after 15 minutes. CALL 911 for ED Evaluation. 50% evonne 2023 Active 2023 99749 23764 9 Intrav enous False Glucagon (HCl) Emergency Kit 1 mg solution for injection Administer Glucagon 1 mg Intramuscular if 15 minutes after GLucose Gel is administered Glucose remains less than 70 1 mg 2023 Active 2023 48075 39298 2 Intram uscula r False Glucose Gel 40 % oral gel [Dextrose] PRN If resident is unable to swallow (with or without symptoms) and Glucose results less than 70 give GLucose 40% Gel 1 tube orally - Recheck Glucose 15 minutes after administratio n. 1 tube 2023 Active 2023 18066 42653 8 By Mouth False Milk of Magnesia 400 mg/5 mL oral suspension [Magnesium hydroxide] PRN 30ml By Mouth Daily as needed for constipation one time daily if no BM, on day 4 of no BM (PRN refer to instructions) For Constipation 30 mL 2023 Active 2023 53540 76666 6 Daily as needed By Mouth False Atorvastati n 40 mg tablet [generic] 08/26 Inactiv e 2023 47278 42687 5 Atorvastati n 40 mg tablet [generic] 40mg By Mouth Once daily For HDL 40mg 2023 Active 2023 26128 70320 5 Once daily By Mouth False Insulin aspart (U-100) 100 unit/mL (3 mL) subcutaneou s pen [generic] 15 units Subcutaneous 1 time For dm 15 units 08/26 Inactiv e 2023 29113 84078 5 1 time Subcut aneous False Humalog KwikPen (U-100) Insulin 100 unit/mL subcutaneou s 15 units Subcutaneous 1 time For dm 15 units 08/27 Inactiv e 2023 41655 59518 9 1 time Subcut aneous False MediHoney HCS 4 1/2in X 4 1/2in bandage Cleanse area with NSS, apply one medihoney hydrocolloid dressing, non adherent dressing, kerlix secure with paper tape daily. For wound stage III 1 2023 Active 2023 09399 74463 1 Once daily Topica l False Problems [...] weight Temperature SpO2 Blood Sugar Pulse Respirations 20234 8 67.00 mm[Hg] - Sitting 145.00 mm[Hg] - Sitting 98.50 Forehead Scan 96.00 % 81.00/ min 16.00/min 96221 004 60546 2 67.00 mm[Hg] - Sitting 145.00 mm[Hg] - Sitting 98.50 Tympanic 81.00/ min 16.00/min 42520 004 41630 5 56.00 mm[Hg] - Sitting 142.00 mm[Hg] - Sitting 136.40 NI 100.20 Tympanic 96.00 % 92.00/ min 18.00/min 15452 004 87426 6 18788 004 80656 4 143.00 mg/dL 004 30935 0 97.80 Tympanic 15912 005 61696 7 60.00 mm[Hg] - Sitting 140.00 mm[Hg] - Sitting 98.00 Tympanic 84.00/ min 18.00/min 68054 005 58972 0 63.00 mm[Hg] - Sitting 141.00 mm[Hg] - Sitting 98.20 Tympanic 92.00 % 63.00/ min 16.00/min 45808 005 96025 8 69.00 mm[Hg] - Sitting 106.00 mm[Hg] - Sitting 97.20 Tympanic 45811 005 81283 7 69.00/ min 16.00/min 35333 005 59166 3 69.00 mm[Hg] - Sitting 106.00 mm[Hg] - Sitting 98.20 Tympanic 69.00/ min 16.00/min 30747 005 10838 1 367.00 mg/dL 24567 005 36081 2 97.20 Tympanic 93708 005 73923 4 97.20 Tympanic 57862 005 69555 0 69.00 mm[Hg] - Sitting 106.00 mm[Hg] - Sitting 69.00/ min 90487 005 92859 3 452.00 mg/dL 35383 005 00070 3 452.00 mg/dL 77477 005 42356 5 352.00 mg/dL 43741 005 62785 3 352.00 mg/dL 09948 005 75203 7 98.20 Tympanic 29439 005 3 101.00 mg/dL 77735 005 8 101.00 mg/dL 99966 006 14395 4 66.00 mm[Hg] - Sitting 107.00 mm[Hg] - Sitting 98.00 Tympanic 66.00/ min 18.00/min 22891 006 87812 0 62.00 mm[Hg] - Sitting 162.00 mm[Hg] - Sitting 98.20 Tympanic 96.00 % 60.00/ min 16.00/min 34958 006 70416 4 62.00 mm[Hg] - Sitting 162.00 mm[Hg] - Sitting 98.00 Tympanic 70.00/ min 18.00/min 48591 006 83624 8 62.00 mm[Hg] - Sitting 162.00 mm[Hg] - Sitting 98.20 Tympanic 70.00/ min 18.00/min 37926 006 36051 2 66.00 mm[Hg] - Sitting 132.00 mm[Hg] - Sitting 98.60 Tympanic 74.00/ min 16.00/min 27488 006 82445 5 159.00 mg/dL 73425 006 99230 1 159.00 mg/dL 60416 006 44257 8 98.00 Tympanic 56231 006 51845 2 62.00 mm[Hg] - Sitting 162.00 mm[Hg] - Sitting 70.00/ min 66731 006 72445 7 264.00 mg/dL 15467 006 54206 7 264.00 mg/dL 88936 006 22454 4 196.00 mg/dL 78848 006 36041 3 98.20 Tympanic 87805 006 81101 6 271.00 mg/dL 22935 007 49499 3 97.20 Tympanic 41337 007 20873 2 63.00 mm[Hg] - Sitting 132.00 mm[Hg] - Sitting 98.50 Tympanic 94.00 % 66.00/ min 16.00/min 16855 007 32988 5 188.00 mg/dL 19631 007 55918 2 188.00 mg/dL 46118 007 33750 2 188.00 mg/dL 32189 007 79037 7 97.20 Tympanic 85364 007 77728 6 97.20 Tympanic 007 58596 5 67.00 mm[Hg] - Sitting 152.00 mm[Hg] - Sitting 68.00/ min 007 24034 0 141.00 mg/dL 007 41703 3 141.00 mg/dL 007 84066 1 366.00 mg/dL 007 02690 7 366.00 mg/dL
--- OUTSIDE RECORDS SUMMARY | 2024-10-03 11:22 | External Medical Summary | Continuity Of Care Document ---
Author Name Unknown Address [address] [address] Organization [facility] () Care Team Providers Care Health Tech Name Role Phone DO Machado Amy Primary Care Provider [phone] Allergies Allergy Reaction Start Date End Date [...] Day 3 0.1 mL 08/29 Active 2023 73787 37674 0 1 time Intrad ermal False Tubersol 5 tub. unit/0.1 mL intradermal injection solution [Tuberculin PPD] 0.1mL Intradermal 1 time For PPD 2nd Step Give 2nd Step PPD Day 1 and Read results Day 3 (schedule 7 days after 1st READ) 0.1mL 09/08 Active 2023 02845 42930 0 1 time Intrad ermal False Humalog [...] order For Diabetes 08/25 Inactiv e 2023 43651 38735 9 4 times a day Subcut aneous False Aspirin 325 mg tablet [generic] 325 By Mouth Twice daily For Anticoagulati on 325 09/25 Active 2023 27923 02800 1 Twice daily By Mouth False Ferrous sulfate 325 mg (65 mg iron) tablet [generic] 325 By Mouth Once daily For anemia 325 2023 Active 2023 25401 75513 5 Once daily By Mouth False Linezolid 600 mg tablet [generic] 600 mg By Mouth Every 12 hours For MRSA INFECTION L BKA 600 mg 08/25 Inactiv e 2023 67953 86413 1 Every 12 hours By Mouth False Cefpodoxime 200 mg tablet [generic] 400 mg By Mouth Twice daily For MRSA INFECTION L BKA 400 mg 08/25 Inactiv e 2023 99468 81069 0 Twice daily By Mouth False Coenzyme Q10 100 mg tablet [generic] 100 mg By Mouth Once daily For SUPP 100 mg 2023 Active 2023 56902 16340 0 Once daily By Mouth False Levothyroxi ne 50 mcg tablet [generic] 50mcg By Mouth Once daily For hypothyroidis m 50mcg 2023 Active 2023 17707 34501 0 Once daily By Mouth False One A Day Men Complete 240 mcg-25 mcg-300 mcg tablet 1 tab By Mouth Once daily For supplement 1 tab 2023 Active 2023 07081 29485 1 Once daily By Mouth False Cholecalcif adalberto (vitamin D3) 50 mcg (2,000 unit) tablet [generic] 1 TAB By Mouth Once daily For SUPP 1 TAB 2023 Active 2023 61620 48053 1 Once daily By Mouth False Cetirizine 10 mg tablet [generic] 1 TAB By Mouth At bedtime For Allergies 1 TAB 2023 Active 2023 47886 74536 0 At bedtime By Mouth False Timolol maleate 0.25 % eye drops [generic] 1 drop Both Eyes Twice daily For glaucoma 1 drop 2023 Active 2023 17860 05311 5 Twice daily Both Eyes False Alendronate 35 mg tablet [generic] 35mg By Mouth Every week For SIADH 35mg 2023 Active 2023 48512 15838 5 Every week By Mouth False Lantus Solostar U-100 Insulin 100 unit/mL (3 mL) subcutaneou s pen 18 units Subcutaneous Every morning For DIABETES 18 units 08/25 Inactiv e 2023 49581 24573 0 Every morning Subcut aneous False Lantus Solostar U-100 Insulin 100 unit/mL (3 mL) subcutaneou s pen 18 units Subcutaneous Every morning For DIABETES 18 units 2023 Active 2023 68557 0 Every morning Subcut aneous False Linezolid 600 mg tablet [generic] 600 mg By Mouth Every 12 hours For MRSA INFECTION L BKA 600 mg 2023 Active 2023 03107 33792 1 Every 12 hours By Mouth False [...] one-time order For Diabetes 2023 Active 2023 40976 52961 9 4 times a day Subcut aneous False Cefpodoxime 200 mg tablet [generic] 400 mg By Mouth Twice daily For MRSA INFECTION L BKA 400 mg 2023 Active 2023 67215 95039 0 Twice daily By Mouth False Brimonidine 0.1 % eye drops [generic] 1 drop Both Eyes Twice daily For glaucoma 1 drop 2023 Active 2023 67416 51896 0 Twice daily Both Eyes False Metoprolol succinate ER 50 mg tablet,exte nded release 24 hr [generic] 50 mg By Mouth Once daily HOLD FOR SBP <100, or pulse <60 For HTN 50 mg 2023 Active 2023 92005 12793 1 Once daily By Mouth False Amlodipine 2.5 mg tablet [generic] 2.5 mg By Mouth Once daily For HTN 2.5 mg 2023 Active 2023 12182 84679 5 Once daily By Mouth False Docusate sodium 100 mg capsule [generic] 100mg By Mouth Twice daily as needed For constipation HOLD FOR LOOSE STOOLS 100mg 2023 Active 2023 67108 72938 1 Twice daily as needed By Mouth False Atorvastati n 40 mg tablet [generic] 40mg By Mouth Once daily For HDL 40mg 08/26 Inactiv e 2023 85370 83703 5 Once daily By Mouth False Tylenol 325 mg tablet 2 tabs By Mouth Every 4 hours as needed For Pain DO NOT EXCEED 3000 MG APAP/24 Hours 2 tabs 2023 Active 2023 02918 37783 0 Every 4 hours as needed By Mouth False Tylenol 325 mg tablet 2 tabs By Mouth Every 4 hours as needed For Fever >100 DO NOT EXCEED 3000 MG APAP/24 Hours 2 tabs 2023 Active 2023 64329 74096 0 Every 4 hours as needed By Mouth False Dulcolax (bisacodyl) 10 mg rectal suppository One Suppository per rectum PRN if Milk of Magnisia ineffective. Give on day 5 of no BM 1 sup 2023 Active 2023 04227 24227 1 Daily as needed Rectal False Fleet Enema 19 gram-7 gram/118 mL Administer per rectum PRN one time if dulcolax suppository not effective. Give on day 6 of no BM 1 2023 Active 2023 80442 32806 6 Daily as needed Rectal False Dextrose 50 % in water (D50W) intravenous solution [generic] Dextrose 50% evonne 20-50 ml (slow push) Intravenous if Glucagon not effective after 15 minutes. CALL 911 for ED Evaluation. 50% evonne 2023 Active 2023 20939 63538 9 Intrav enous False Glucagon (HCl) Emergency Kit 1 mg solution for injection Administer Glucagon 1 mg Intramuscular if 15 minutes after GLucose Gel is administered Glucose remains less than 70 1 mg 2023 Active 2023 25336 81248 2 Intram uscula r False Glucose Gel 40 % oral gel [Dextrose] PRN If resident is unable to swallow (with or without symptoms) and Glucose results less than 70 give GLucose 40% Gel 1 tube orally - Recheck Glucose 15 minutes after administratio n. 1 tube 2023 Active 2023 88552 60988 8 By Mouth False Milk of Magnesia 400 mg/5 mL oral suspension [Magnesium hydroxide] PRN 30ml By Mouth Daily as needed for constipation one time daily if no BM, on day 4 of no BM (PRN refer to instructions) For Constipation 30 mL 2023 Active 2023 91368 37194 6 Daily as needed By Mouth False Atorvastati n 40 mg tablet [generic] 08/26 Inactiv e 2023 26246 07556 5 Atorvastati n 40 mg tablet [generic] 40mg By Mouth Once daily For HDL 40mg 2023 Active 2023 81323 43052 5 Once daily By Mouth False Insulin aspart (U-100) 100 unit/mL (3 mL) subcutaneou s pen [generic] 15 units Subcutaneous 1 time For dm 15 units 08/26 Inactiv e 2023 73556 84184 5 1 time Subcut aneous False Humalog KwikPen (U-100) Insulin 100 unit/mL subcutaneou s 15 units Subcutaneous 1 time For dm 15 units 08/27 Inactiv e 2023 20421 10605 9 1 time Subcut aneous False MediHoney HCS 4 1/2in X 4 1/2in bandage Cleanse area with NSS, apply one medihoney hydrocolloid dressing, non adherent dressing, kerlix secure with paper tape daily. For wound stage III 1 2023 0000 /0000 Active 2023 33051 64320 1 Once daily Topica l False VITAL SIGNS Date Time Diastolic blood pressure Systolic blood pressure Body height Body weight Temperature SpO2 Blood Sugar Pulse Respirations 25198 8 67.00 mm[Hg] - Sitting 145.00 mm[Hg] - Sitting 98.50 Forehead Scan 96.00 % 81.00/ min 16.00/min 53346 004 27560 2 67.00 mm[Hg] - Sitting 145.00 mm[Hg] - Sitting 98.50 Tympanic 81.00/ min 16.00/min 21399 004 26566 5 56.00 mm[Hg] - Sitting 142.00 mm[Hg] - Sitting 136.40 NI 100.20 Tympanic 96.00 % 92.00/ min 18.00/min 25994 004 09061 6 86884 004 05554 4 143.00 mg/dL 13837 004 40912 0 97.80 Tympanic 16047 005 21605 7 60.00 mm[Hg] - Sitting 140.00 mm[Hg] - Sitting 98.00 Tympanic 84.00/ min 18.00/min 60453 005 85670 0 63.00 mm[Hg] - Sitting 141.00 mm[Hg] - Sitting 98.20 Tympanic 92.00 % 63.00/ min 16.00/min 29616 005 57049 8 69.00 mm[Hg] - Sitting 106.00 mm[Hg] - Sitting 97.20 Tympanic 47352 005 29763 7 69.00/ min 16.00/min 49893 005 09705 3 69.00 mm[Hg] - Sitting 106.00 mm[Hg] - Sitting 98.20 Tympanic 69.00/ min 16.00/min 77506 005 58515 1 367.00 mg/dL 23625 005 76714 2 97.20 Tympanic 21784 005 44857 4 97.20 Tympanic 35343 005 38277 0 69.00 mm[Hg] - Sitting 106.00 mm[Hg] - Sitting 69.00/ min 76802 005 40845 3 452.00 mg/dL 01294 005 09628 3 452.00 mg/dL 96344 005 40829 5 352.00 mg/dL 86907 005 27763 3 352.00 mg/dL 64599 005 91739 7 98.20 Tympanic 69289 005 29256 3 101.00 mg/dL 55895 005 41012 8 101.00 mg/dL 90371 006 71159 4 66.00 mm[Hg] - Sitting 107.00 mm[Hg] - Sitting 98.00 Tympanic 66.00/ min 18.00/min 14396 006 81760 0 62.00 mm[Hg] - Sitting 162.00 mm[Hg] - Sitting 98.20 Tympanic 96.00 % 60.00/ min 16.00/min 85734 006 52368 4 62.00 mm[Hg] - Sitting 162.00 mm[Hg] - Sitting 98.00 Tympanic 70.00/ min 18.00/min 98537 006 56917 8 62.00 mm[Hg] - Sitting 162.00 mm[Hg] - Sitting 98.20 Tympanic 70.00/ min 18.00/min 21050 006 17685 2 66.00 mm[Hg] - Sitting 132.00 mm[Hg] - Sitting 98.60 Tympanic 74.00/ min 16.00/min 22954 006 51613 5 159.00 mg/dL 22674 006 04792 1 159.00 mg/dL 77334 006 34374 8 98.00 Tympanic 29274 006 37877 2 62.00 mm[Hg] - Sitting 162.00 mm[Hg] - Sitting 70.00/ min 67766 006 80234 7 264.00 mg/dL 76786 006 16583 7 264.00 mg/dL 04504 006 90020 4 196.00 mg/dL 98616 006 94500 3 98.20 Tympanic 23978 006 26106 6 271.00 mg/dL 57935 007 94439 3 97.20 Tympanic 21145 007 00550 2 63.00 mm[Hg] - Sitting 132.00 mm[Hg] - Sitting 98.50 Tympanic 94.00 % 66.00/ min 16.00/min 87240 007 92968 5 188.00 mg/dL 80616 007 70577 2 188.00 mg/dL 92483 007 73751 2 188.00 mg/dL 007 99946 7 97.20 Tympanic 56627 007 22135 6 97.20 Tympanic 14544 007 38571 5 67.00 mm[Hg] - Sitting 152.00 mm[Hg] - Sitting 68.00/ min 007 53755 0 141.00 mg/dL 007 25068 3 141.00 mg/dL
--- OUTSIDE RECORDS SUMMARY | 2024-10-03 11:22 | External Medical Summary | Continuity Of Care Document ---
Author Name Unknown Address [address] [address] Organization [facility] () Care Team Providers Care Record Label Intern Name Role Phone DO Machado Amy Primary Care Provider [phone] Allergies Allergy Reaction Start Date End Date [...] Day 3 0.1 mL 08/29 Active 2023 54546 81761 0 1 time Intrad ermal False Tubersol 5 tub. unit/0.1 mL intradermal injection solution [Tuberculin PPD] 0.1mL Intradermal 1 time For PPD 2nd Step Give 2nd Step PPD Day 1 and Read results Day 3 (schedule 7 days after 1st READ) 0.1mL 09/08 Active 2023 89457 45130 0 1 time Intrad ermal False Humalog [...] order For Diabetes 08/25 Inactiv e 2023 10228 86484 9 4 times a day Subcut aneous False Aspirin 325 mg tablet [generic] 325 By Mouth Twice daily For Anticoagulati on 325 09/25 Active 2023 08755 28603 1 Twice daily By Mouth False Ferrous sulfate 325 mg (65 mg iron) tablet [generic] 325 By Mouth Once daily For anemia 325 2023 Active 2023 26263 72097 5 Once daily By Mouth False Linezolid 600 mg tablet [generic] 600 mg By Mouth Every 12 hours For MRSA INFECTION L BKA 600 mg 08/25 Inactiv e 2023 77572 41049 1 Every 12 hours By Mouth False Cefpodoxime 200 mg tablet [generic] 400 mg By Mouth Twice daily For MRSA INFECTION L BKA 400 mg 08/25 Inactiv e 2023 01019 73834 0 Twice daily By Mouth False Coenzyme Q10 100 mg tablet [generic] 100 mg By Mouth Once daily For SUPP 100 mg 2023 Active 2023 22798 49079 0 Once daily By Mouth False Levothyroxi ne 50 mcg tablet [generic] 50mcg By Mouth Once daily For hypothyroidis m 50mcg 2023 Active 2023 67273 46647 0 Once daily By Mouth False One A Day Men Complete 240 mcg-25 mcg-300 mcg tablet 1 tab By Mouth Once daily For supplement 1 tab 2023 Active 2023 46182 88286 1 Once daily By Mouth False Cholecalcif adalberto (vitamin D3) 50 mcg (2,000 unit) tablet [generic] 1 TAB By Mouth Once daily For SUPP 1 TAB 2023 Active 2023 28722 07200 1 Once daily By Mouth False Cetirizine 10 mg tablet [generic] 1 TAB By Mouth At bedtime For Allergies 1 TAB 2023 Active 2023 77615 67604 0 At bedtime By Mouth False Timolol maleate 0.25 % eye drops [generic] 1 drop Both Eyes Twice daily For glaucoma 1 drop 2023 Active 2023 07727 84896 5 Twice daily Both Eyes False Alendronate 35 mg tablet [generic] 35mg By Mouth Every week For SIADH 35mg 2023 Active 2023 42450 34210 5 Every week By Mouth False Lantus Solostar U-100 Insulin 100 unit/mL (3 mL) subcutaneou s pen 18 units Subcutaneous Every morning For DIABETES 18 units 08/25 Inactiv e 2023 63771 32615 0 Every morning Subcut aneous False Lantus Solostar U-100 Insulin 100 unit/mL (3 mL) subcutaneou s pen 18 units Subcutaneous Every morning For DIABETES 18 units 2023 Active 2023 67209 63670 0 Every morning Subcut aneous False Linezolid 600 mg tablet [generic] 600 mg By Mouth Every 12 hours For MRSA INFECTION L BKA 600 mg 08/28 Inactiv e 2023 85838 19298 1 Every 12 hours By Mouth False [...] one-time order For Diabetes 2023 Active 2023 21677 32319 9 4 times a day Subcut aneous False Cefpodoxime 200 mg tablet [generic] 400 mg By Mouth Twice daily For MRSA INFECTION L BKA 400 mg 08/28 Inactiv e 2023 68751 70007 0 Twice daily By Mouth False Brimonidine 0.1 % eye drops [generic] 1 drop Both Eyes Twice daily For glaucoma 1 drop 2023 Active 2023 74618 35309 0 Twice daily Both Eyes False Metoprolol succinate ER 50 mg tablet,exte nded release 24 hr [generic] 50 mg By Mouth Once daily HOLD FOR SBP <100, or pulse <60 For HTN 50 mg 2023 Active 2023 70348 37413 1 Once daily By Mouth False Amlodipine 2.5 mg tablet [generic] 2.5 mg By Mouth Once daily For HTN 2.5 mg 2023 Active 2023 02531 68645 5 Once daily By Mouth False Docusate sodium 100 mg capsule [generic] 100mg By Mouth Twice daily as needed For constipation HOLD FOR LOOSE STOOLS 100mg 2023 Active 2023 89766 23476 1 Twice daily as needed By Mouth False Atorvastati n 40 mg tablet [generic] 40mg By Mouth Once daily For HDL 40mg 08/26 Inactiv e 2023 91266 65016 5 Once daily By Mouth False Tylenol 325 mg tablet 2 tabs By Mouth Every 4 hours as needed For Pain DO NOT EXCEED 3000 MG APAP/24 Hours 2 tabs 2023 Active 2023 37619 03239 0 Every 4 hours as needed By Mouth False Tylenol 325 mg tablet 2 tabs By Mouth Every 4 hours as needed For Fever >100 DO NOT EXCEED 3000 MG APAP/24 Hours 2 tabs 2023 Active 2023 35307 58397 0 Every 4 hours as needed By Mouth False Dulcolax (bisacodyl) 10 mg rectal suppository One Suppository per rectum PRN if Milk of Magnisia ineffective. Give on day 5 of no BM 1 sup 2023 Active 2023 06316 85931 1 Daily as needed Rectal False Fleet Enema 19 gram-7 gram/118 mL Administer per rectum PRN one time if dulcolax suppository not effective. Give on day 6 of no BM 1 2023 Active 2023 53793 65497 6 Daily as needed Rectal False Dextrose 50 % in water (D50W) intravenous solution [generic] Dextrose 50% evonne 20-50 ml (slow push) Intravenous if Glucagon not effective after 15 minutes. CALL 911 for ED Evaluation. 50% evonne 2023 Active 2023 87303 51603 9 Intrav enous False Glucagon (HCl) Emergency Kit 1 mg solution for injection Administer Glucagon 1 mg Intramuscular if 15 minutes after GLucose Gel is administered Glucose remains less than 70 1 mg 2023 Active 2023 49444 99688 2 Intram uscula r False Glucose Gel 40 % oral gel [Dextrose] PRN If resident is unable to swallow (with or without symptoms) and Glucose results less than 70 give GLucose 40% Gel 1 tube orally - Recheck Glucose 15 minutes after administratio n. 1 tube 2023 Active 2023 52215 24397 8 By Mouth False Milk of Magnesia 400 mg/5 mL oral suspension [Magnesium hydroxide] PRN 30ml By Mouth Daily as needed for constipation one time daily if no BM, on day 4 of no BM (PRN refer to instructions) For Constipation 30 mL 2023 Active 2023 82508 22064 6 Daily as needed By Mouth False Atorvastati n 40 mg tablet [generic] 08/26 Inactiv e 2023 99931 27372 5 Atorvastati n 40 mg tablet [generic] 40mg By Mouth Once daily For HDL 40mg 2023 Active 2023 44874 00163 5 Once daily By Mouth False Insulin aspart (U-100) 100 unit/mL (3 mL) subcutaneou s pen [generic] 15 units Subcutaneous 1 time For dm 15 units 08/26 Inactiv e 2023 15319 51520 5 1 time Subcut aneous False Humalog KwikPen (U-100) Insulin 100 unit/mL subcutaneou s 15 units Subcutaneous 1 time For dm 15 units 08/27 Inactiv e 2023 03835 47729 9 1 time Subcut aneous False Linezolid 600 mg tablet [generic] 600 mg By Mouth Every 12 hours For MRSA INFECTION L BKA 600 mg 09/06 Active 2023 85189 88224 1 Every 12 hours By Mouth False Cefpodoxime 200 mg tablet [generic] 400 mg By Mouth Twice daily For MRSA INFECTION L BKA 400 mg 08/31 Active 2023 37243 90349 0 Twice daily By Mouth False MediHoney HCS 4 1/2in X 4 1/2in bandage Cleanse area with NSS, apply one medihoney hydrocolloid dressing, non adherent dressing, kerlix secure with paper tape daily. For wound stage III 1 2023 Active 2023 95191 72456 1 Once daily Topica l False Problems Code Description Start Date End Date Status D64.9 Anemia, unspecified 08/25/2024 Activ e I25.10 Atherosclerotic hear t disease of [place] coronary artery without angina pectoris 08/25/2024 Active [...] weight Temperature SpO2 Blood Sugar Pulse Respirations 56355 8 67.00 mm[Hg] - Sitting 145.00 mm[Hg] - Sitting 98.50 Forehead Scan 96.00 % 81.00/ min 16.00/min 86239 004 17198 2 67.00 mm[Hg] - Sitting 145.00 mm[Hg] - Sitting 98.50 Tympanic 81.00/ min 16.00/min 95205 004 00094 5 56.00 mm[Hg] - Sitting 142.00 mm[Hg] - Sitting 136.40 NI 100.20 Tympanic 96.00 % 92.00/ min 18.00/min 92574 004 24604 6 004 07438 4 143.00 mg/dL 11171 0 97.80 Tympanic 005 81987 7 60.00 mm[Hg] - Sitting 140.00 mm[Hg] - Sitting 98.00 Tympanic 84.00/ min 18.00/min 67027 005 19345 0 63.00 mm[Hg] - Sitting 141.00 mm[Hg] - Sitting 98.20 Tympanic 92.00 % 63.00/ min 16.00/min 59311 005 15499 8 69.00 mm[Hg] - Sitting 106.00 mm[Hg] - Sitting 97.20 Tympanic 005 56966 7 69.00/ min 16.00/min 31167 005 71133 3 69.00 mm[Hg] - Sitting 106.00 mm[Hg] - Sitting 98.20 Tympanic 69.00/ min 16.00/min 76605 005 62151 1 367.00 mg/dL 67733 005 45284 2 97.20 Tympanic 67601 005 06355 4 97.20 Tympanic 62620 005 89743 0 69.00 mm[Hg] - Sitting 106.00 mm[Hg] - Sitting 69.00/ min 62915 005 70611 3 452.00 mg/dL 75596 005 67605 3 452.00 mg/dL 60002 005 85013 5 352.00 mg/dL 68752 005 54207 3 352.00 mg/dL 08242 005 89372 7 98.20 Tympanic 40387 005 3 101.00 mg/dL 95993 005 8 101.00 mg/dL 67190 006 68364 4 66.00 mm[Hg] - Sitting 107.00 mm[Hg] - Sitting 98.00 Tympanic 66.00/ min 18.00/min 37848 006 38181 0 62.00 mm[Hg] - Sitting 162.00 mm[Hg] - Sitting 98.20 Tympanic 96.00 % 60.00/ min 16.00/min 05250 006 14709 4 62.00 mm[Hg] - Sitting 162.00 mm[Hg] - Sitting 98.00 Tympanic 70.00/ min 18.00/min 40234 006 04776 8 62.00 mm[Hg] - Sitting 162.00 mm[Hg] - Sitting 98.20 Tympanic 70.00/ min 18.00/min 44034 006 60567 2 66.00 mm[Hg] - Sitting 132.00 mm[Hg] - Sitting 98.60 Tympanic 74.00/ min 16.00/min 08474 006 54624 5 159.00 mg/dL 39524 006 88290 1 159.00 mg/dL 11650 006 67235 8 98.00 Tympanic 13441 006 80010 2 62.00 mm[Hg] - Sitting 162.00 mm[Hg] - Sitting 70.00/ min 12699 006 34790 7 264.00 mg/dL 59237 006 32976 7 264.00 mg/dL 27244 006 14896 4 196.00 mg/dL 94733 006 36019 3 98.20 Tympanic 81687 006 90824 6 271.00 mg/dL 79615 007 81448 3 97.20 Tympanic 37890 007 45477 2 63.00 mm[Hg] - Sitting 132.00 mm[Hg] - Sitting 98.50 Tympanic 94.00 % 66.00/ min 16.00/min 41064 007 28923 5 188.00 mg/dL 29311 007 13562 2 188.00 mg/dL 34514 007 54329 2 188.00 mg/dL 56124 007 32123 7 97.20 Tympanic 51410 007 33733 6 97.20 Tympanic 33145 007 62027 5 67.00 mm[Hg] - Sitting 152.00 mm[Hg] - Sitting 68.00/ min 32555 007 05042 0 141.00 mg/dL 53768 007 63009 3 141.00 mg/dL 55111 007 56095 1 366.00 mg/dL 50220 007 21836 7 366.00 mg/dL
--- OUTSIDE RECORDS SUMMARY | 2024-10-03 11:22 | External Medical Summary | Continuity Of Care Document ---
Author Name Unknown Address [address] [address] Organization [facility] () Care Team Providers Care Furnace Mechanic Name Role Phone DO Machado Amy Primary Care Provider [phone] Allergies Allergy Reaction Start Date End Date [...] Day 3 0.1 mL 08/29 Active 2023 69638 53723 0 1 time Intrad ermal False Tubersol 5 tub. unit/0.1 mL intradermal injection solution [Tuberculin PPD] 0.1mL Intradermal 1 time For PPD 2nd Step Give 2nd Step PPD Day 1 and Read results Day 3 (schedule 7 days after 1st READ) 0.1mL 09/08 Active 2023 83657 34847 0 1 time Intrad ermal False Humalog [...] order For Diabetes 08/25 Inactiv e 2023 33255 31568 9 4 times a day Subcut aneous False Aspirin 325 mg tablet [generic] 325 By Mouth Twice daily For Anticoagulati on 325 09/25 Active 2023 74949 58556 1 Twice daily By Mouth False Ferrous sulfate 325 mg (65 mg iron) tablet [generic] 325 By Mouth Once daily For anemia 325 2023 Active 2023 72377 78924 5 Once daily By Mouth False Linezolid 600 mg tablet [generic] 600 mg By Mouth Every 12 hours For MRSA INFECTION L BKA 600 mg 08/25 Inactiv e 2023 20069 00665 1 Every 12 hours By Mouth False Cefpodoxime 200 mg tablet [generic] 400 mg By Mouth Twice daily For MRSA INFECTION L BKA 400 mg 08/25 Inactiv e 2023 40937 06637 0 Twice daily By Mouth False Coenzyme Q10 100 mg tablet [generic] 100 mg By Mouth Once daily For SUPP 100 mg 2023 Active 2023 33417 59293 0 Once daily By Mouth False Levothyroxi ne 50 mcg tablet [generic] 50mcg By Mouth Once daily For hypothyroidis m 50mcg 2023 Active 2023 19458 15152 0 Once daily By Mouth False One A Day Men Complete 240 mcg-25 mcg-300 mcg tablet 1 tab By Mouth Once daily For supplement 1 tab 2023 Active 2023 09472 81833 1 Once daily By Mouth False Cholecalcif adalberto (vitamin D3) 50 mcg (2,000 unit) tablet [generic] 1 TAB By Mouth Once daily For SUPP 1 TAB 2023 Active 2023 35051 73659 1 Once daily By Mouth False Cetirizine 10 mg tablet [generic] 1 TAB By Mouth At bedtime For Allergies 1 TAB 2023 Active 2023 26222 65065 0 At bedtime By Mouth False Timolol maleate 0.25 % eye drops [generic] 1 drop Both Eyes Twice daily For glaucoma 1 drop 2023 Active 2023 52385 65481 5 Twice daily Both Eyes False Alendronate 35 mg tablet [generic] 35mg By Mouth Every week For SIADH 35mg 2023 Active 2023 10181 91403 5 Every week By Mouth False Lantus Solostar U-100 Insulin 100 unit/mL (3 mL) subcutaneou s pen 18 units Subcutaneous Every morning For DIABETES 18 units 08/25 Inactiv e 2023 66252 09667 0 Every morning Subcut aneous False Lantus Solostar U-100 Insulin 100 unit/mL (3 mL) subcutaneou s pen 18 units Subcutaneous Every morning For DIABETES 18 units 2023 Active 2023 47833 73821 0 Every morning Subcut aneous False Linezolid 600 mg tablet [generic] 600 mg By Mouth Every 12 hours For MRSA INFECTION L BKA 600 mg 08/28 Inactiv e 2023 79928 99534 1 Every 12 hours By Mouth False [...] one-time order For Diabetes 2023 Active 2023 43097 74176 9 4 times a day Subcut aneous False Cefpodoxime 200 mg tablet [generic] 400 mg By Mouth Twice daily For MRSA INFECTION L BKA 400 mg 08/28 Inactiv e 2023 97314 74108 0 Twice daily By Mouth False Brimonidine 0.1 % eye drops [generic] 1 drop Both Eyes Twice daily For glaucoma 1 drop 2023 Active 2023 22067 22787 0 Twice daily Both Eyes False Metoprolol succinate ER 50 mg tablet,exte nded release 24 hr [generic] 50 mg By Mouth Once daily HOLD FOR SBP <100, or pulse <60 For HTN 50 mg 2023 Active 2023 82589 47161 1 Once daily By Mouth False Amlodipine 2.5 mg tablet [generic] 2.5 mg By Mouth Once daily For HTN 2.5 mg 2023 Active 2023 13532 39469 5 Once daily By Mouth False Docusate sodium 100 mg capsule [generic] 100mg By Mouth Twice daily as needed For constipation HOLD FOR LOOSE STOOLS 100mg 2023 Active 2023 15324 08683 1 Twice daily as needed By Mouth False Atorvastati n 40 mg tablet [generic] 40mg By Mouth Once daily For HDL 40mg 08/26 Inactiv e 2023 31139 09910 5 Once daily By Mouth False Tylenol 325 mg tablet 2 tabs By Mouth Every 4 hours as needed For Pain DO NOT EXCEED 3000 MG APAP/24 Hours 2 tabs 2023 Active 2023 07235 17399 0 Every 4 hours as needed By Mouth False Tylenol 325 mg tablet 2 tabs By Mouth Every 4 hours as needed For Fever >100 DO NOT EXCEED 3000 MG APAP/24 Hours 2 tabs 2023 Active 2023 06195 77987 0 Every 4 hours as needed By Mouth False Dulcolax (bisacodyl) 10 mg rectal suppository One Suppository per rectum PRN if Milk of Magnisia ineffective. Give on day 5 of no BM 1 sup 2023 Active 2023 85960 01656 1 Daily as needed Rectal False Fleet Enema 19 gram-7 gram/118 mL Administer per rectum PRN one time if dulcolax suppository not effective. Give on day 6 of no BM 1 2023 Active 2023 83481 15857 6 Daily as needed Rectal False Dextrose 50 % in water (D50W) intravenous solution [generic] Dextrose 50% evonne 20-50 ml (slow push) Intravenous if Glucagon not effective after 15 minutes. CALL 911 for ED Evaluation. 50% evonne 2023 Active 2023 12441 98845 9 Intrav enous False Glucagon (HCl) Emergency Kit 1 mg solution for injection Administer Glucagon 1 mg Intramuscular if 15 minutes after GLucose Gel is administered Glucose remains less than 70 1 mg 2023 Active 2023 10015 31385 2 Intram uscula r False Glucose Gel 40 % oral gel [Dextrose] PRN If resident is unable to swallow (with or without symptoms) and Glucose results less than 70 give GLucose 40% Gel 1 tube orally - Recheck Glucose 15 minutes after administratio n. 1 tube 2023 Active 2023 20512 98040 8 By Mouth False Milk of Magnesia 400 mg/5 mL oral suspension [Magnesium hydroxide] PRN 30ml By Mouth Daily as needed for constipation one time daily if no BM, on day 4 of no BM (PRN refer to instructions) For Constipation 30 mL 2023 Active 2023 78727 41670 6 Daily as needed By Mouth False Atorvastati n 40 mg tablet [generic] 08/26 Inactiv e 2023 86102 71281 5 Atorvastati n 40 mg tablet [generic] 40mg By Mouth Once daily For HDL 40mg 2023 Active 2023 75791 65153 5 Once daily By Mouth False Insulin aspart (U-100) 100 unit/mL (3 mL) subcutaneou s pen [generic] 15 units Subcutaneous 1 time For dm 15 units 08/26 Inactiv e 2023 77500 15443 5 1 time Subcut aneous False Humalog KwikPen (U-100) Insulin 100 unit/mL subcutaneou s 15 units Subcutaneous 1 time For dm 15 units 08/27 Inactiv e 2023 79633 51985 9 1 time Subcut aneous False Linezolid 600 mg tablet [generic] 600 mg By Mouth Every 12 hours For MRSA INFECTION L BKA 600 mg 09/06 Active 2023 97687 27230 1 Every 12 hours By Mouth False Cefpodoxime 200 mg tablet [generic] 400 mg By Mouth Twice daily For MRSA INFECTION L BKA 400 mg 08/31 Active 2023 93977 20190 0 Twice daily By Mouth False MediHoney HCS 4 1/2in X 4 1/2in bandage Cleanse area with NSS, apply one medihoney hydrocolloid dressing, non adherent dressing, kerlix secure with paper tape daily. For wound stage III 1 2023 Active 2023 79928 79348 1 Once daily Topica l False Problems [...] weight Temperature SpO2 Blood Sugar Pulse Respirations 32579 8 67.00 mm[Hg] - Sitting 145.00 mm[Hg] - Sitting 98.50 Forehead Scan 96.00 % 81.00/ min 16.00/min 57696 004 32257 2 67.00 mm[Hg] - Sitting 145.00 mm[Hg] - Sitting 98.50 Tympanic 81.00/ min 16.00/min 08429 004 96880 5 56.00 mm[Hg] - Sitting 142.00 mm[Hg] - Sitting 136.40 NI 100.20 Tympanic 96.00 % 92.00/ min 18.00/min 95498 004 25673 6 004 13186 4 143.00 mg/dL 52086 0 97.80 Tympanic 005 16509 7 60.00 mm[Hg] - Sitting 140.00 mm[Hg] - Sitting 98.00 Tympanic 84.00/ min 18.00/min 47373 005 56548 0 63.00 mm[Hg] - Sitting 141.00 mm[Hg] - Sitting 98.20 Tympanic 92.00 % 63.00/ min 16.00/min 46723 005 73565 8 69.00 mm[Hg] - Sitting 106.00 mm[Hg] - Sitting 97.20 Tympanic 005 08999 7 69.00/ min 16.00/min 37108 005 18929 3 69.00 mm[Hg] - Sitting 106.00 mm[Hg] - Sitting 98.20 Tympanic 69.00/ min 16.00/min 46396 005 76855 1 367.00 mg/dL 90756 005 92553 2 97.20 Tympanic 85293 005 30079 4 97.20 Tympanic 73492 005 25804 0 69.00 mm[Hg] - Sitting 106.00 mm[Hg] - Sitting 69.00/ min 54583 005 55671 3 452.00 mg/dL 58886 005 56485 3 452.00 mg/dL 72303 005 21245 5 352.00 mg/dL 42691 005 22717 3 352.00 mg/dL 00658 005 04032 7 98.20 Tympanic 95643 005 3 101.00 mg/dL 62794 005 8 101.00 mg/dL 79719 006 14834 4 66.00 mm[Hg] - Sitting 107.00 mm[Hg] - Sitting 98.00 Tympanic 66.00/ min 18.00/min 53503 006 35002 0 62.00 mm[Hg] - Sitting 162.00 mm[Hg] - Sitting 98.20 Tympanic 96.00 % 60.00/ min 16.00/min 71997 006 64343 4 62.00 mm[Hg] - Sitting 162.00 mm[Hg] - Sitting 98.00 Tympanic 70.00/ min 18.00/min 18089 006 95829 8 62.00 mm[Hg] - Sitting 162.00 mm[Hg] - Sitting 98.20 Tympanic 70.00/ min 18.00/min 85125 006 77103 2 66.00 mm[Hg] - Sitting 132.00 mm[Hg] - Sitting 98.60 Tympanic 74.00/ min 16.00/min 71909 006 18620 5 159.00 mg/dL 30931 006 02328 1 159.00 mg/dL 79233 006 90961 8 98.00 Tympanic 48939 006 44203 2 62.00 mm[Hg] - Sitting 162.00 mm[Hg] - Sitting 70.00/ min 46265 006 54752 7 264.00 mg/dL 28925 006 92893 7 264.00 mg/dL 57582 006 01320 4 196.00 mg/dL 79770 006 99792 3 98.20 Tympanic 71294 006 39507 6 271.00 mg/dL 84286 007 88262 3 97.20 Tympanic 34659 007 91891 2 63.00 mm[Hg] - Sitting 132.00 mm[Hg] - Sitting 98.50 Tympanic 94.00 % 66.00/ min 16.00/min 57544 007 86663 5 188.00 mg/dL 26575 007 21221 2 188.00 mg/dL 71299 007 73207 2 188.00 mg/dL 16628 007 93012 7 97.20 Tympanic 70033 007 37909 6 97.20 Tympanic 17950 007 14259 5 67.00 mm[Hg] - Sitting 152.00 mm[Hg] - Sitting 68.00/ min 73380 007 12136 0 141.00 mg/dL 63685 007 58723 3 141.00 mg/dL 42898 007 05639 1 366.00 mg/dL 54441 007 33702 7 366.00 mg/dL
--- OUTSIDE RECORDS SUMMARY | 2024-10-03 11:22 | External Medical Summary | Continuity Of Care Document ---
Author Name Unknown Address [address] [address] Organization [facility] () Care Team Providers Care Cps Team Lead Name Role Phone DO Machado Amy Primary Care Provider [phone] Allergies Allergy Reaction Start Date End Date [...] Day 3 0.1 mL 08/29 Active 2023 66259 49820 0 1 time Intrad ermal False Tubersol 5 tub. unit/0.1 mL intradermal injection solution [Tuberculin PPD] 0.1mL Intradermal 1 time For PPD 2nd Step Give 2nd Step PPD Day 1 and Read results Day 3 (schedule 7 days after 1st READ) 0.1mL 09/08 Active 2023 35122 10414 0 1 time Intrad ermal False Humalog [...] order For Diabetes 08/25 Inactiv e 2023 12086 13014 9 4 times a day Subcut aneous False Aspirin 325 mg tablet [generic] 325 By Mouth Twice daily For Anticoagulati on 325 09/25 Active 2023 46037 35425 1 Twice daily By Mouth False Ferrous sulfate 325 mg (65 mg iron) tablet [generic] 325 By Mouth Once daily For anemia 325 2023 Active 2023 35894 89263 5 Once daily By Mouth False Linezolid 600 mg tablet [generic] 600 mg By Mouth Every 12 hours For MRSA INFECTION L BKA 600 mg 08/25 Inactiv e 2023 76798 80588 1 Every 12 hours By Mouth False Cefpodoxime 200 mg tablet [generic] 400 mg By Mouth Twice daily For MRSA INFECTION L BKA 400 mg 08/25 Inactiv e 2023 10157 51984 0 Twice daily By Mouth False Coenzyme Q10 100 mg tablet [generic] 100 mg By Mouth Once daily For SUPP 100 mg 2023 Active 2023 35573 86299 0 Once daily By Mouth False Levothyroxi ne 50 mcg tablet [generic] 50mcg By Mouth Once daily For hypothyroidis m 50mcg 2023 Active 2023 76628 15812 0 Once daily By Mouth False One A Day Men Complete 240 mcg-25 mcg-300 mcg tablet 1 tab By Mouth Once daily For supplement 1 tab 2023 Active 2023 26296 23852 1 Once daily By Mouth False Cholecalcif adalberto (vitamin D3) 50 mcg (2,000 unit) tablet [generic] 1 TAB By Mouth Once daily For SUPP 1 TAB 2023 Active 2023 22724 78082 1 Once daily By Mouth False Cetirizine 10 mg tablet [generic] 1 TAB By Mouth At bedtime For Allergies 1 TAB 2023 Active 2023 61393 15715 0 At bedtime By Mouth False Timolol maleate 0.25 % eye drops [generic] 1 drop Both Eyes Twice daily For glaucoma 1 drop 2023 Active 2023 90125 52286 5 Twice daily Both Eyes False Alendronate 35 mg tablet [generic] 35mg By Mouth Every week For SIADH 35mg 2023 Active 2023 17723 44368 5 Every week By Mouth False Lantus Solostar U-100 Insulin 100 unit/mL (3 mL) subcutaneou s pen 18 units Subcutaneous Every morning For DIABETES 18 units 08/25 Inactiv e 2023 26113 54594 0 Every morning Subcut aneous False Lantus Solostar U-100 Insulin 100 unit/mL (3 mL) subcutaneou s pen 18 units Subcutaneous Every morning For DIABETES 18 units 2023 Active 2023 96853 0 Every morning Subcut aneous False Linezolid 600 mg tablet [generic] 600 mg By Mouth Every 12 hours For MRSA INFECTION L BKA 600 mg 2023 Active 2023 60905 70452 1 Every 12 hours By Mouth False [...] one-time order For Diabetes 2023 Active 2023 48367 24685 9 4 times a day Subcut aneous False Cefpodoxime 200 mg tablet [generic] 400 mg By Mouth Twice daily For MRSA INFECTION L BKA 400 mg 2023 Active 2023 62544 46003 0 Twice daily By Mouth False Brimonidine 0.1 % eye drops [generic] 1 drop Both Eyes Twice daily For glaucoma 1 drop 2023 Active 2023 96203 28900 0 Twice daily Both Eyes False Metoprolol succinate ER 50 mg tablet,exte nded release 24 hr [generic] 50 mg By Mouth Once daily HOLD FOR SBP <100, or pulse <60 For HTN 50 mg 2023 Active 2023 69947 19579 1 Once daily By Mouth False Amlodipine 2.5 mg tablet [generic] 2.5 mg By Mouth Once daily For HTN 2.5 mg 2023 Active 2023 67939 23802 5 Once daily By Mouth False Docusate sodium 100 mg capsule [generic] 100mg By Mouth Twice daily as needed For constipation HOLD FOR LOOSE STOOLS 100mg 2023 Active 2023 13090 93479 1 Twice daily as needed By Mouth False Atorvastati n 40 mg tablet [generic] 40mg By Mouth Once daily For HDL 40mg 08/26 Inactiv e 2023 41823 39204 5 Once daily By Mouth False Tylenol 325 mg tablet 2 tabs By Mouth Every 4 hours as needed For Pain DO NOT EXCEED 3000 MG APAP/24 Hours 2 tabs 2023 Active 2023 61938 01867 0 Every 4 hours as needed By Mouth False Tylenol 325 mg tablet 2 tabs By Mouth Every 4 hours as needed For Fever >100 DO NOT EXCEED 3000 MG APAP/24 Hours 2 tabs 2023 Active 2023 02975 29426 0 Every 4 hours as needed By Mouth False Dulcolax (bisacodyl) 10 mg rectal suppository One Suppository per rectum PRN if Milk of Magnisia ineffective. Give on day 5 of no BM 1 sup 2023 Active 2023 99630 36815 1 Daily as needed Rectal False Fleet Enema 19 gram-7 gram/118 mL Administer per rectum PRN one time if dulcolax suppository not effective. Give on day 6 of no BM 1 2023 Active 2023 42637 03086 6 Daily as needed Rectal False Dextrose 50 % in water (D50W) intravenous solution [generic] Dextrose 50% evonne 20-50 ml (slow push) Intravenous if Glucagon not effective after 15 minutes. CALL 911 for ED Evaluation. 50% evonne 2023 Active 2023 95075 15068 9 Intrav enous False Glucagon (HCl) Emergency Kit 1 mg solution for injection Administer Glucagon 1 mg Intramuscular if 15 minutes after GLucose Gel is administered Glucose remains less than 70 1 mg 2023 Active 2023 01389 92014 2 Intram uscula r False Glucose Gel 40 % oral gel [Dextrose] PRN If resident is unable to swallow (with or without symptoms) and Glucose results less than 70 give GLucose 40% Gel 1 tube orally - Recheck Glucose 15 minutes after administratio n. 1 tube 2023 Active 2023 67720 93442 8 By Mouth False Milk of Magnesia 400 mg/5 mL oral suspension [Magnesium hydroxide] PRN 30ml By Mouth Daily as needed for constipation one time daily if no BM, on day 4 of no BM (PRN refer to instructions) For Constipation 30 mL 2023 Active 2023 64569 16002 6 Daily as needed By Mouth False Atorvastati n 40 mg tablet [generic] 08/26 Inactiv e 2023 94546 58856 5 Atorvastati n 40 mg tablet [generic] 40mg By Mouth Once daily For HDL 40mg 2023 Active 2023 68710 53400 5 Once daily By Mouth False Insulin aspart (U-100) 100 unit/mL (3 mL) subcutaneou s pen [generic] 15 units Subcutaneous 1 time For dm 15 units 08/26 Inactiv e 2023 91831 06669 5 1 time Subcut aneous False Humalog KwikPen (U-100) Insulin 100 unit/mL subcutaneou s 15 units Subcutaneous 1 time For dm 15 units 08/27 Inactiv e 2023 06113 38229 9 1 time Subcut aneous False MediHoney HCS 4 1/2in X 4 1/2in bandage Cleanse area with NSS, apply one medihoney hydrocolloid dressing, non adherent dressing, kerlix secure with paper tape daily. For wound stage III 1 2023 0000 /0000 Active 2023 63228 63921 1 Once daily Topica l False VITAL SIGNS Date Time Diastolic blood pressure Systolic blood pressure Body height Body weight Temperature SpO2 Blood Sugar Pulse Respirations 99115 8 67.00 mm[Hg] - Sitting 145.00 mm[Hg] - Sitting 98.50 Forehead Scan 96.00 % 81.00/ min 16.00/min 02462 004 29006 2 67.00 mm[Hg] - Sitting 145.00 mm[Hg] - Sitting 98.50 Tympanic 81.00/ min 16.00/min 36223 004 74905 5 56.00 mm[Hg] - Sitting 142.00 mm[Hg] - Sitting 136.40 NI 100.20 Tympanic 96.00 % 92.00/ min 18.00/min 89472 004 95150 6 65509 004 97640 4 143.00 mg/dL 36483 004 33450 0 97.80 Tympanic 60457 005 15991 7 60.00 mm[Hg] - Sitting 140.00 mm[Hg] - Sitting 98.00 Tympanic 84.00/ min 18.00/min 10355 005 85211 0 63.00 mm[Hg] - Sitting 141.00 mm[Hg] - Sitting 98.20 Tympanic 92.00 % 63.00/ min 16.00/min 47927 005 30430 8 69.00 mm[Hg] - Sitting 106.00 mm[Hg] - Sitting 97.20 Tympanic 98949 005 88495 7 69.00/ min 16.00/min 28251 005 38193 3 69.00 mm[Hg] - Sitting 106.00 mm[Hg] - Sitting 98.20 Tympanic 69.00/ min 16.00/min 58300 005 83066 1 367.00 mg/dL 95657 005 80232 2 97.20 Tympanic 13583 005 11254 4 97.20 Tympanic 93581 005 58349 0 69.00 mm[Hg] - Sitting 106.00 mm[Hg] - Sitting 69.00/ min 23024 005 30813 3 452.00 mg/dL 71707 005 34554 3 452.00 mg/dL 05757 005 20556 5 352.00 mg/dL 41295 005 68598 3 352.00 mg/dL 54741 005 16499 7 98.20 Tympanic 74324 005 3 101.00 mg/dL 10769 005 8 101.00 mg/dL 50954 006 84771 4 66.00 mm[Hg] - Sitting 107.00 mm[Hg] - Sitting 98.00 Tympanic 66.00/ min 18.00/min 05299 006 97653 0 62.00 mm[Hg] - Sitting 162.00 mm[Hg] - Sitting 98.20 Tympanic 96.00 % 60.00/ min 16.00/min 16685 006 99119 4 62.00 mm[Hg] - Sitting 162.00 mm[Hg] - Sitting 98.00 Tympanic 70.00/ min 18.00/min 50976 006 87658 8 62.00 mm[Hg] - Sitting 162.00 mm[Hg] - Sitting 98.20 Tympanic 70.00/ min 18.00/min 38688 006 86463 2 66.00 mm[Hg] - Sitting 132.00 mm[Hg] - Sitting 98.60 Tympanic 74.00/ min 16.00/min 52372 006 51873 5 159.00 mg/dL 19537 006 09611 1 159.00 mg/dL 94679 006 21837 8 98.00 Tympanic 93997 006 83488 2 62.00 mm[Hg] - Sitting 162.00 mm[Hg] - Sitting 70.00/ min 10715 006 24161 7 264.00 mg/dL 31677 006 93116 7 264.00 mg/dL 09122 006 86121 4 196.00 mg/dL 98661 006 46780 3 98.20 Tympanic 97160 006 49852 6 271.00 mg/dL
--- OUTSIDE RECORDS SUMMARY | 2024-10-03 11:22 | External Medical Summary | Continuity Of Care Document ---
Author Name Unknown Address [address] [address] Organization [facility] () Care Team Providers Care Family Law Specialist Name Role Phone DO Machado Amy Primary Care Provider [phone] Allergies Allergy Reaction Start Date End Date [...] 3 0.1 mL 08/29 Inactiv e 2023 50316 70858 0 1 time Intrad ermal False Tubersol 5 tub. unit/0.1 mL intradermal injection solution [Tuberculin PPD] 0.1mL Intradermal 1 time For PPD 2nd Step Give 2nd Step PPD Day 1 and Read results Day 3 (schedule 7 days after 1st READ) 0.1mL 09/08 Active 2023 50568 33147 0 1 time Intrad ermal False Humalog [...] order For Diabetes 08/25 Inactiv e 2023 13840 52070 9 4 times a day Subcut aneous False Aspirin 325 mg tablet [generic] 325 By Mouth Twice daily For Anticoagulati on 325 09/25 Active 2023 55948 97520 1 Twice daily By Mouth False Ferrous sulfate 325 mg (65 mg iron) tablet [generic] 325 By Mouth Once daily For anemia 325 2023 Active 2023 15742 39627 5 Once daily By Mouth False Linezolid 600 mg tablet [generic] 600 mg By Mouth Every 12 hours For MRSA INFECTION L BKA 600 mg 08/25 Inactiv e 2023 27242 53647 1 Every 12 hours By Mouth False Cefpodoxime 200 mg tablet [generic] 400 mg By Mouth Twice daily For MRSA INFECTION L BKA 400 mg 08/25 Inactiv e 2023 01644 45704 0 Twice daily By Mouth False Coenzyme Q10 100 mg tablet [generic] 100 mg By Mouth Once daily For SUPP 100 mg 2023 Active 2023 60365 23471 0 Once daily By Mouth False Levothyroxi ne 50 mcg tablet [generic] 50mcg By Mouth Once daily For hypothyroidis m 50mcg 2023 Active 2023 25459 01970 0 Once daily By Mouth False One A Day Men Complete 240 mcg-25 mcg-300 mcg tablet 1 tab By Mouth Once daily For supplement 1 tab 2023 Active 2023 77116 88691 1 Once daily By Mouth False Cholecalcif adalberto (vitamin D3) 50 mcg (2,000 unit) tablet [generic] 1 TAB By Mouth Once daily For SUPP 1 TAB 2023 Active 2023 63192 14814 1 Once daily By Mouth False Cetirizine 10 mg tablet [generic] 1 TAB By Mouth At bedtime For Allergies 1 TAB 2023 Active 2023 38394 99875 0 At bedtime By Mouth False Timolol maleate 0.25 % eye drops [generic] 1 drop Both Eyes Twice daily For glaucoma 1 drop 2023 Active 2023 10360 82120 5 Twice daily Both Eyes False Alendronate 35 mg tablet [generic] 35mg By Mouth Every week For SIADH 35mg 2023 Active 2023 66993 29841 5 Every week By Mouth False Lantus Solostar U-100 Insulin 100 unit/mL (3 mL) subcutaneou s pen 18 units Subcutaneous Every morning For DIABETES 18 units 08/25 Inactiv e 2023 25494 56807 0 Every morning Subcut aneous False Lantus Solostar U-100 Insulin 100 unit/mL (3 mL) subcutaneou s pen 18 units Subcutaneous Every morning For DIABETES 18 units 2023 Active 2023 35533 55977 0 Every morning Subcut aneous False Linezolid 600 mg tablet [generic] 600 mg By Mouth Every 12 hours For MRSA INFECTION L BKA 600 mg 08/28 Inactiv e 2023 28131 44358 1 Every 12 hours By Mouth False [...] one-time order For Diabetes 2023 Active 2023 98673 11679 9 4 times a day Subcut aneous False Cefpodoxime 200 mg tablet [generic] 400 mg By Mouth Twice daily For MRSA INFECTION L BKA 400 mg 08/28 Inactiv e 2023 53883 56106 0 Twice daily By Mouth False Brimonidine 0.1 % eye drops [generic] 1 drop Both Eyes Twice daily For glaucoma 1 drop 2023 Active 2023 69922 11119 0 Twice daily Both Eyes False Metoprolol succinate ER 50 mg tablet,exte nded release 24 hr [generic] 50 mg By Mouth Once daily HOLD FOR SBP <100, or pulse <60 For HTN 50 mg 2023 Active 2023 97944 70533 1 Once daily By Mouth False Amlodipine 2.5 mg tablet [generic] 2.5 mg By Mouth Once daily For HTN 2.5 mg 2023 Active 2023 04278 81344 5 Once daily By Mouth False Docusate sodium 100 mg capsule [generic] 100mg By Mouth Twice daily as needed For constipation HOLD FOR LOOSE STOOLS 100mg 2023 Active 2023 12287 83511 1 Twice daily as needed By Mouth False Atorvastati n 40 mg tablet [generic] 40mg By Mouth Once daily For HDL 40mg 08/26 Inactiv e 2023 95871 43756 5 Once daily By Mouth False Tylenol 325 mg tablet 2 tabs By Mouth Every 4 hours as needed For Pain DO NOT EXCEED 3000 MG APAP/24 Hours 2 tabs 2023 Active 2023 60284 05519 0 Every 4 hours as needed By Mouth False Tylenol 325 mg tablet 2 tabs By Mouth Every 4 hours as needed For Fever >100 DO NOT EXCEED 3000 MG APAP/24 Hours 2 tabs 2023 Active 2023 73388 45626 0 Every 4 hours as needed By Mouth False Dulcolax (bisacodyl) 10 mg rectal suppository One Suppository per rectum PRN if Milk of Magnisia ineffective. Give on day 5 of no BM 1 sup 2023 Active 2023 21213 85537 1 Daily as needed Rectal False Fleet Enema 19 gram-7 gram/118 mL Administer per rectum PRN one time if dulcolax suppository not effective. Give on day 6 of no BM 1 2023 Active 2023 33782 54295 6 Daily as needed Rectal False Dextrose 50 % in water (D50W) intravenous solution [generic] Dextrose 50% evonne 20-50 ml (slow push) Intravenous if Glucagon not effective after 15 minutes. CALL 911 for ED Evaluation. 50% evonne 2023 Active 2023 87988 35892 9 Intrav enous False Glucagon (HCl) Emergency Kit 1 mg solution for injection Administer Glucagon 1 mg Intramuscular if 15 minutes after GLucose Gel is administered Glucose remains less than 70 1 mg 2023 Active 2023 61326 16170 2 Intram uscula r False Glucose Gel 40 % oral gel [Dextrose] PRN If resident is unable to swallow (with or without symptoms) and Glucose results less than 70 give GLucose 40% Gel 1 tube orally - Recheck Glucose 15 minutes after administratio n. 1 tube 2023 Active 2023 53623 81869 8 By Mouth False Milk of Magnesia 400 mg/5 mL oral suspension [Magnesium hydroxide] PRN 30ml By Mouth Daily as needed for constipation one time daily if no BM, on day 4 of no BM (PRN refer to instructions) For Constipation 30 mL 2023 Active 2023 66904 89006 6 Daily as needed By Mouth False Atorvastati n 40 mg tablet [generic] 08/26 Inactiv e 2023 29189 75072 5 Atorvastati n 40 mg tablet [generic] 40mg By Mouth Once daily For HDL 40mg 2023 Active 2023 67045 08471 5 Once daily By Mouth False Insulin aspart (U-100) 100 unit/mL (3 mL) subcutaneou s pen [generic] 15 units Subcutaneous 1 time For dm 15 units 08/26 Inactiv e 2023 91119 00260 5 1 time Subcut aneous False Humalog KwikPen (U-100) Insulin 100 unit/mL subcutaneou s 15 units Subcutaneous 1 time For dm 15 units 08/27 Inactiv e 2023 56985 48387 9 1 time Subcut aneous False Linezolid 600 mg tablet [generic] 600 mg By Mouth Every 12 hours For MRSA INFECTION L BKA 600 mg 09/06 Active 2023 81911 00956 1 Every 12 hours By Mouth False Cefpodoxime 200 mg tablet [generic] 400 mg By Mouth Twice daily For MRSA INFECTION L BKA 400 mg 08/31 Active 2023 73035 86362 0 Twice daily By Mouth False MediHoney HCS 4 1/2in X 4 1/2in bandage Cleanse area with NSS, apply one medihoney hydrocolloid dressing, non adherent dressing, kerlix secure with paper tape daily. For wound stage III 1 2023 Active 2023 21311 02382 1 Once daily Topica l False Problems Code Description Start Date End Date Status D64.9 Anemia, unspecified 08/25/2024 Activ e I25.10 Atherosclerotic hear t disease of [place] coronary artery without angina pectoris 08/25/2024 Active [...] weight Temperature SpO2 Blood Sugar Pulse Respirations 61775 8 67.00 mm[Hg] - Sitting 145.00 mm[Hg] - Sitting 98.50 Forehead Scan 96.00 % 81.00/ min 16.00/min 46374 004 23755 2 67.00 mm[Hg] - Sitting 145.00 mm[Hg] - Sitting 98.50 Tympanic 81.00/ min 16.00/min 15799 004 42911 5 56.00 mm[Hg] - Sitting 142.00 mm[Hg] - Sitting 136.40 NI 100.20 Tympanic 96.00 % 92.00/ min 18.00/min 86348 004 21949 6 14944 004 50776 4 143.00 mg/dL 70480 0 97.80 Tympanic 005 36112 7 60.00 mm[Hg] - Sitting 140.00 mm[Hg] - Sitting 98.00 Tympanic 84.00/ min 18.00/min 33981 005 99697 0 63.00 mm[Hg] - Sitting 141.00 mm[Hg] - Sitting 98.20 Tympanic 92.00 % 63.00/ min 16.00/min 89330 005 28109 8 69.00 mm[Hg] - Sitting 106.00 mm[Hg] - Sitting 97.20 Tympanic 005 30405 7 69.00/ min 16.00/min 30824 005 33744 3 69.00 mm[Hg] - Sitting 106.00 mm[Hg] - Sitting 98.20 Tympanic 69.00/ min 16.00/min 62453 005 32797 1 367.00 mg/dL 90685 005 00412 2 97.20 Tympanic 73490 005 37452 4 97.20 Tympanic 84912 005 85726 0 69.00 mm[Hg] - Sitting 106.00 mm[Hg] - Sitting 69.00/ min 99253 005 80382 3 452.00 mg/dL 59837 005 32315 3 452.00 mg/dL 56530 005 39702 5 352.00 mg/dL 45432 005 84406 3 352.00 mg/dL 26762 005 36144 7 98.20 Tympanic 59848 005 3 101.00 mg/dL 35960 005 8 101.00 mg/dL 31400 006 50985 4 66.00 mm[Hg] - Sitting 107.00 mm[Hg] - Sitting 98.00 Tympanic 66.00/ min 18.00/min 23612 006 29156 0 62.00 mm[Hg] - Sitting 162.00 mm[Hg] - Sitting 98.20 Tympanic 96.00 % 60.00/ min 16.00/min 60101 006 96785 4 62.00 mm[Hg] - Sitting 162.00 mm[Hg] - Sitting 98.00 Tympanic 70.00/ min 18.00/min 11505 006 04799 8 62.00 mm[Hg] - Sitting 162.00 mm[Hg] - Sitting 98.20 Tympanic 70.00/ min 18.00/min 60178 006 73576 2 66.00 mm[Hg] - Sitting 132.00 mm[Hg] - Sitting 98.60 Tympanic 74.00/ min 16.00/min 19269 006 95567 5 159.00 mg/dL 75074 006 32910 1 159.00 mg/dL 82352 006 07902 8 98.00 Tympanic 33220 006 69347 2 62.00 mm[Hg] - Sitting 162.00 mm[Hg] - Sitting 70.00/ min 65679 006 40762 7 264.00 mg/dL 21534 006 94362 7 264.00 mg/dL 20736 006 56962 4 196.00 mg/dL 35908 006 55984 3 98.20 Tympanic 33825 006 47951 6 271.00 mg/dL 80666 007 05829 3 97.20 Tympanic 17452 007 67988 2 63.00 mm[Hg] - Sitting 132.00 mm[Hg] - Sitting 98.50 Tympanic 94.00 % 66.00/ min 16.00/min 69346 007 88873 5 188.00 mg/dL 37946 007 50937 2 188.00 mg/dL 52433 007 46088 2 188.00 mg/dL 59131 007 45200 7 97.20 Tympanic 65707 007 99298 6 97.20 Tympanic 63305 007 00051 5 67.00 mm[Hg] - Sitting 152.00 mm[Hg] - Sitting 68.00/ min 51332 007 42955 0 141.00 mg/dL 69711 007 58732 3 141.00 mg/dL 44019 007 38808 1 366.00 mg/dL 40221 007 83049 7 366.00 mg/dL 47081 007 18938 7 98.00 Tympanic 20379 007 88939 6 324.00 mg/dL 75637 007 98340 3 98.00 Tympanic 24214 007 15598 7 324.00 mg/dL 01095 008 28350 0 98.00 Tympanic 78035 008 22940 5 137.00 mg/dL 12061 008 61943 7 137.00 mg/dL 38041 008 23043 2 97.90 Tympanic 04718 008 30783 1 137.00 mg/dL 81573 008 62658 8 97.90 Tympanic 97880 008 59570 5 67.00 mm[Hg] - Sitting 124.00 /min
--- OUTSIDE RECORDS SUMMARY | 2024-10-03 11:22 | External Medical Summary | Continuity Of Care Document ---
Author Name Unknown Address [address] [address] Organization [facility] () Care Team Providers Care Learning And Development Analyst Name Role Phone DO Machado Amy Primary Care Provider [phone] Allergies Allergy Reaction Start Date End Date [...] Day 3 0.1 mL 08/29 Active 2023 66578 73874 0 1 time Intrad ermal False Tubersol 5 tub. unit/0.1 mL intradermal injection solution [Tuberculin PPD] 0.1mL Intradermal 1 time For PPD 2nd Step Give 2nd Step PPD Day 1 and Read results Day 3 (schedule 7 days after 1st READ) 0.1mL 09/08 Active 2023 15861 88240 0 1 time Intrad ermal False Humalog [...] order For Diabetes 08/25 Inactiv e 2023 33963 97581 9 4 times a day Subcut aneous False Aspirin 325 mg tablet [generic] 325 By Mouth Twice daily For Anticoagulati on 325 09/25 Active 2023 23859 61588 1 Twice daily By Mouth False Ferrous sulfate 325 mg (65 mg iron) tablet [generic] 325 By Mouth Once daily For anemia 325 2023 Active 2023 89658 34188 5 Once daily By Mouth False Linezolid 600 mg tablet [generic] 600 mg By Mouth Every 12 hours For MRSA INFECTION L BKA 600 mg 08/25 Inactiv e 2023 04082 86867 1 Every 12 hours By Mouth False Cefpodoxime 200 mg tablet [generic] 400 mg By Mouth Twice daily For MRSA INFECTION L BKA 400 mg 08/25 Inactiv e 2023 19167 01845 0 Twice daily By Mouth False Coenzyme Q10 100 mg tablet [generic] 100 mg By Mouth Once daily For SUPP 100 mg 2023 Active 2023 30175 38727 0 Once daily By Mouth False Levothyroxi ne 50 mcg tablet [generic] 50mcg By Mouth Once daily For hypothyroidis m 50mcg 2023 Active 2023 60091 52029 0 Once daily By Mouth False One A Day Men Complete 240 mcg-25 mcg-300 mcg tablet 1 tab By Mouth Once daily For supplement 1 tab 2023 Active 2023 02743 18916 1 Once daily By Mouth False Cholecalcif adalberto (vitamin D3) 50 mcg (2,000 unit) tablet [generic] 1 TAB By Mouth Once daily For SUPP 1 TAB 2023 Active 2023 65942 00655 1 Once daily By Mouth False Cetirizine 10 mg tablet [generic] 1 TAB By Mouth At bedtime For Allergies 1 TAB 2023 Active 2023 88955 98002 0 At bedtime By Mouth False Timolol maleate 0.25 % eye drops [generic] 1 drop Both Eyes Twice daily For glaucoma 1 drop 2023 Active 2023 08646 90824 5 Twice daily Both Eyes False Alendronate 35 mg tablet [generic] 35mg By Mouth Every week For SIADH 35mg 2023 Active 2023 23683 09711 5 Every week By Mouth False Lantus Solostar U-100 Insulin 100 unit/mL (3 mL) subcutaneou s pen 18 units Subcutaneous Every morning For DIABETES 18 units 08/25 Inactiv e 2023 81514 45469 0 Every morning Subcut aneous False Lantus Solostar U-100 Insulin 100 unit/mL (3 mL) subcutaneou s pen 18 units Subcutaneous Every morning For DIABETES 18 units 2023 Active 2023 66729 0 Every morning Subcut aneous False Linezolid 600 mg tablet [generic] 600 mg By Mouth Every 12 hours For MRSA INFECTION L BKA 600 mg 2023 Active 2023 31863 41157 1 Every 12 hours By Mouth False [...] one-time order For Diabetes 2023 Active 2023 71416 63906 9 4 times a day Subcut aneous False Cefpodoxime 200 mg tablet [generic] 400 mg By Mouth Twice daily For MRSA INFECTION L BKA 400 mg 2023 Active 2023 63449 84862 0 Twice daily By Mouth False Brimonidine 0.1 % eye drops [generic] 1 drop Both Eyes Twice daily For glaucoma 1 drop 2023 Active 2023 60641 04636 0 Twice daily Both Eyes False Metoprolol succinate ER 50 mg tablet,exte nded release 24 hr [generic] 50 mg By Mouth Once daily HOLD FOR SBP <100, or pulse <60 For HTN 50 mg 2023 Active 2023 90503 02607 1 Once daily By Mouth False Amlodipine 2.5 mg tablet [generic] 2.5 mg By Mouth Once daily For HTN 2.5 mg 2023 Active 2023 53327 08823 5 Once daily By Mouth False Docusate sodium 100 mg capsule [generic] 100mg By Mouth Twice daily as needed For constipation HOLD FOR LOOSE STOOLS 100mg 2023 Active 2023 77020 78786 1 Twice daily as needed By Mouth False Atorvastati n 40 mg tablet [generic] 40mg By Mouth Once daily For HDL 40mg 08/26 Inactiv e 2023 77431 60358 5 Once daily By Mouth False Tylenol 325 mg tablet 2 tabs By Mouth Every 4 hours as needed For Pain DO NOT EXCEED 3000 MG APAP/24 Hours 2 tabs 2023 Active 2023 94022 22735 0 Every 4 hours as needed By Mouth False Tylenol 325 mg tablet 2 tabs By Mouth Every 4 hours as needed For Fever >100 DO NOT EXCEED 3000 MG APAP/24 Hours 2 tabs 2023 Active 2023 99213 30385 0 Every 4 hours as needed By Mouth False Dulcolax (bisacodyl) 10 mg rectal suppository One Suppository per rectum PRN if Milk of Magnisia ineffective. Give on day 5 of no BM 1 sup 2023 Active 2023 37643 11082 1 Daily as needed Rectal False Fleet Enema 19 gram-7 gram/118 mL Administer per rectum PRN one time if dulcolax suppository not effective. Give on day 6 of no BM 1 2023 Active 2023 40238 01438 6 Daily as needed Rectal False Dextrose 50 % in water (D50W) intravenous solution [generic] Dextrose 50% evonne 20-50 ml (slow push) Intravenous if Glucagon not effective after 15 minutes. CALL 911 for ED Evaluation. 50% evonne 2023 Active 2023 06788 32070 9 Intrav enous False Glucagon (HCl) Emergency Kit 1 mg solution for injection Administer Glucagon 1 mg Intramuscular if 15 minutes after GLucose Gel is administered Glucose remains less than 70 1 mg 2023 Active 2023 10090 32405 2 Intram uscula r False Glucose Gel 40 % oral gel [Dextrose] PRN If resident is unable to swallow (with or without symptoms) and Glucose results less than 70 give GLucose 40% Gel 1 tube orally - Recheck Glucose 15 minutes after administratio n. 1 tube 2023 Active 2023 73781 82937 8 By Mouth False Milk of Magnesia 400 mg/5 mL oral suspension [Magnesium hydroxide] PRN 30ml By Mouth Daily as needed for constipation one time daily if no BM, on day 4 of no BM (PRN refer to instructions) For Constipation 30 mL 2023 Active 2023 97400 29035 6 Daily as needed By Mouth False Atorvastati n 40 mg tablet [generic] 08/26 Inactiv e 2023 21428 26886 5 Atorvastati n 40 mg tablet [generic] 40mg By Mouth Once daily For HDL 40mg 2023 Active 2023 39706 30449 5 Once daily By Mouth False Insulin aspart (U-100) 100 unit/mL (3 mL) subcutaneou s pen [generic] 15 units Subcutaneous 1 time For dm 15 units 08/26 Inactiv e 2023 73693 95831 5 1 time Subcut aneous False Humalog KwikPen (U-100) Insulin 100 unit/mL subcutaneou s 15 units Subcutaneous 1 time For dm 15 units 08/27 Inactiv e 2023 97260 50490 9 1 time Subcut aneous False MediHoney HCS 4 1/2in X 4 1/2in bandage Cleanse area with NSS, apply one medihoney hydrocolloid dressing, non adherent dressing, kerlix secure with paper tape daily. For wound stage III 1 2023 0000 /0000 Active 2023 28503 58155 1 Once daily Topica l False VITAL SIGNS Date Time Diastolic blood pressure Systolic blood pressure Body height Body weight Temperature SpO2 Blood Sugar Pulse Respirations 06643 8 67.00 mm[Hg] - Sitting 145.00 mm[Hg] - Sitting 98.50 Forehead Scan 96.00 % 81.00/ min 16.00/min 29933 004 45583 2 67.00 mm[Hg] - Sitting 145.00 mm[Hg] - Sitting 98.50 Tympanic 81.00/ min 16.00/min 23480 004 04329 5 56.00 mm[Hg] - Sitting 142.00 mm[Hg] - Sitting 136.40 NI 100.20 Tympanic 96.00 % 92.00/ min 18.00/min 48789 004 09131 6 72771 004 14874 4 143.00 mg/dL 36059 004 43975 0 97.80 Tympanic 67683 005 23340 7 60.00 mm[Hg] - Sitting 140.00 mm[Hg] - Sitting 98.00 Tympanic 84.00/ min 18.00/min 53869 005 73471 0 63.00 mm[Hg] - Sitting 141.00 mm[Hg] - Sitting 98.20 Tympanic 92.00 % 63.00/ min 16.00/min 67678 005 12747 8 69.00 mm[Hg] - Sitting 106.00 mm[Hg] - Sitting 97.20 Tympanic 36988 005 46624 7 69.00/ min 16.00/min 69161 005 71455 3 69.00 mm[Hg] - Sitting 106.00 mm[Hg] - Sitting 98.20 Tympanic 69.00/ min 16.00/min 11742 005 34407 1 367.00 mg/dL 34320 005 75971 2 97.20 Tympanic 57899 005 73504 4 97.20 Tympanic 87584 005 67585 0 69.00 mm[Hg] - Sitting 106.00 mm[Hg] - Sitting 69.00/ min 18271 005 54910 3 452.00 mg/dL 79601 005 70507 3 452.00 mg/dL 50403 005 43447 5 352.00 mg/dL 74722 005 40344 3 352.00 mg/dL 41961 005 61912 7 98.20 Tympanic 04181 005 56089 3 101.00 mg/dL 90825 005 19556 8 101.00 mg/dL 27022 006 25987 4 66.00 mm[Hg] - Sitting 107.00 mm[Hg] - Sitting 98.00 Tympanic 66.00/ min 18.00/min 18571 006 06231 0 62.00 mm[Hg] - Sitting 162.00 mm[Hg] - Sitting 98.20 Tympanic 96.00 % 60.00/ min 16.00/min 00359 006 44704 4 62.00 mm[Hg] - Sitting 162.00 mm[Hg] - Sitting 98.00 Tympanic 70.00/ min 18.00/min 52183 006 01459 8 62.00 mm[Hg] - Sitting 162.00 mm[Hg] - Sitting 98.20 Tympanic 70.00/ min 18.00/min 76463 006 16842 2 66.00 mm[Hg] - Sitting 132.00 mm[Hg] - Sitting 98.60 Tympanic 74.00/ min 16.00/min 80051 006 84507 5 159.00 mg/dL 16984 006 73429 1 159.00 mg/dL 84850 006 58847 8 98.00 Tympanic 60276 006 92805 2 62.00 mm[Hg] - Sitting 162.00 mm[Hg] - Sitting 70.00/ min 58934 006 15737 7 264.00 mg/dL 99221 006 41602 7 264.00 mg/dL 86704 006 41907 4 196.00 mg/dL 25651 006 71853 3 98.20 Tympanic 01073 006 27473 6 271.00 mg/dL 85310 007 49138 5 188.00 mg/dL 24491 007 00155 2 188.00 mg/dL 29683 007 73187 2 188.00 mg/dL 17838 007 95158 7 97.20 Tympanic 89132 007 17502 6 97.20 Tympanic 62415 007 89800 5 67.00 mm[Hg] - Sitting 152.00 mm[Hg] - Sitting 68.00/ min
--- OUTSIDE RECORDS SUMMARY | 2024-10-03 11:22 | External Medical Summary | Continuity Of Care Document ---
Author Name Unknown Address [address] [address] Organization [facility] () Care Team Providers Care Gas Main Fitter Name Role Phone DO Machado Amy Primary Care Provider [phone] Allergies Allergy Reaction Start Date End Date [...] Day 3 0.1 mL 08/29 Active 2023 38875 25369 0 1 time Intrad ermal False Tubersol 5 tub. unit/0.1 mL intradermal injection solution [Tuberculin PPD] 0.1mL Intradermal 1 time For PPD 2nd Step Give 2nd Step PPD Day 1 and Read results Day 3 (schedule 7 days after 1st READ) 0.1mL 09/08 Active 2023 26049 35140 0 1 time Intrad ermal False Humalog [...] order For Diabetes 08/25 Inactiv e 2023 48612 87700 9 4 times a day Subcut aneous False Aspirin 325 mg tablet [generic] 325 By Mouth Twice daily For Anticoagulati on 325 09/25 Active 2023 13035 09388 1 Twice daily By Mouth False Ferrous sulfate 325 mg (65 mg iron) tablet [generic] 325 By Mouth Once daily For anemia 325 2023 Active 2023 50951 38496 5 Once daily By Mouth False Linezolid 600 mg tablet [generic] 600 mg By Mouth Every 12 hours For MRSA INFECTION L BKA 600 mg 08/25 Inactiv e 2023 27789 03643 1 Every 12 hours By Mouth False Cefpodoxime 200 mg tablet [generic] 400 mg By Mouth Twice daily For MRSA INFECTION L BKA 400 mg 08/25 Inactiv e 2023 05759 83997 0 Twice daily By Mouth False Coenzyme Q10 100 mg tablet [generic] 100 mg By Mouth Once daily For SUPP 100 mg 2023 Active 2023 96402 99632 0 Once daily By Mouth False Levothyroxi ne 50 mcg tablet [generic] 50mcg By Mouth Once daily For hypothyroidis m 50mcg 2023 Active 2023 05125 22213 0 Once daily By Mouth False One A Day Men Complete 240 mcg-25 mcg-300 mcg tablet 1 tab By Mouth Once daily For supplement 1 tab 2023 Active 2023 50748 90285 1 Once daily By Mouth False Cholecalcif adalberto (vitamin D3) 50 mcg (2,000 unit) tablet [generic] 1 TAB By Mouth Once daily For SUPP 1 TAB 2023 Active 2023 74242 91381 1 Once daily By Mouth False Cetirizine 10 mg tablet [generic] 1 TAB By Mouth At bedtime For Allergies 1 TAB 2023 Active 2023 64983 31954 0 At bedtime By Mouth False Timolol maleate 0.25 % eye drops [generic] 1 drop Both Eyes Twice daily For glaucoma 1 drop 2023 Active 2023 38668 92739 5 Twice daily Both Eyes False Alendronate 35 mg tablet [generic] 35mg By Mouth Every week For SIADH 35mg 2023 Active 2023 49883 35326 5 Every week By Mouth False Lantus Solostar U-100 Insulin 100 unit/mL (3 mL) subcutaneou s pen 18 units Subcutaneous Every morning For DIABETES 18 units 08/25 Inactiv e 2023 15326 55004 0 Every morning Subcut aneous False Lantus Solostar U-100 Insulin 100 unit/mL (3 mL) subcutaneou s pen 18 units Subcutaneous Every morning For DIABETES 18 units 2023 Active 2023 15677 0 Every morning Subcut aneous False Linezolid 600 mg tablet [generic] 600 mg By Mouth Every 12 hours For MRSA INFECTION L BKA 600 mg 2023 Active 2023 88205 29803 1 Every 12 hours By Mouth False [...] one-time order For Diabetes 2023 Active 2023 92828 28415 9 4 times a day Subcut aneous False Cefpodoxime 200 mg tablet [generic] 400 mg By Mouth Twice daily For MRSA INFECTION L BKA 400 mg 2023 Active 2023 49321 61337 0 Twice daily By Mouth False Brimonidine 0.1 % eye drops [generic] 1 drop Both Eyes Twice daily For glaucoma 1 drop 2023 Active 2023 02059 52613 0 Twice daily Both Eyes False Metoprolol succinate ER 50 mg tablet,exte nded release 24 hr [generic] 50 mg By Mouth Once daily HOLD FOR SBP <100, or pulse <60 For HTN 50 mg 2023 Active 2023 43559 96588 1 Once daily By Mouth False Amlodipine 2.5 mg tablet [generic] 2.5 mg By Mouth Once daily For HTN 2.5 mg 2023 Active 2023 71163 34399 5 Once daily By Mouth False Docusate sodium 100 mg capsule [generic] 100mg By Mouth Twice daily as needed For constipation HOLD FOR LOOSE STOOLS 100mg 2023 Active 2023 87424 52439 1 Twice daily as needed By Mouth False Atorvastati n 40 mg tablet [generic] 40mg By Mouth Once daily For HDL 40mg 08/26 Inactiv e 2023 97677 92207 5 Once daily By Mouth False Tylenol 325 mg tablet 2 tabs By Mouth Every 4 hours as needed For Pain DO NOT EXCEED 3000 MG APAP/24 Hours 2 tabs 2023 Active 2023 46731 97124 0 Every 4 hours as needed By Mouth False Tylenol 325 mg tablet 2 tabs By Mouth Every 4 hours as needed For Fever >100 DO NOT EXCEED 3000 MG APAP/24 Hours 2 tabs 2023 Active 2023 69724 42404 0 Every 4 hours as needed By Mouth False Dulcolax (bisacodyl) 10 mg rectal suppository One Suppository per rectum PRN if Milk of Magnisia ineffective. Give on day 5 of no BM 1 sup 2023 Active 2023 03618 46226 1 Daily as needed Rectal False Fleet Enema 19 gram-7 gram/118 mL Administer per rectum PRN one time if dulcolax suppository not effective. Give on day 6 of no BM 1 2023 Active 2023 77374 46358 6 Daily as needed Rectal False Dextrose 50 % in water (D50W) intravenous solution [generic] Dextrose 50% evonne 20-50 ml (slow push) Intravenous if Glucagon not effective after 15 minutes. CALL 911 for ED Evaluation. 50% evonne 2023 Active 2023 75662 25154 9 Intrav enous False Glucagon (HCl) Emergency Kit 1 mg solution for injection Administer Glucagon 1 mg Intramuscular if 15 minutes after GLucose Gel is administered Glucose remains less than 70 1 mg 2023 Active 2023 96027 24649 2 Intram uscula r False Glucose Gel 40 % oral gel [Dextrose] PRN If resident is unable to swallow (with or without symptoms) and Glucose results less than 70 give GLucose 40% Gel 1 tube orally - Recheck Glucose 15 minutes after administratio n. 1 tube 2023 Active 2023 21462 60874 8 By Mouth False Milk of Magnesia 400 mg/5 mL oral suspension [Magnesium hydroxide] PRN 30ml By Mouth Daily as needed for constipation one time daily if no BM, on day 4 of no BM (PRN refer to instructions) For Constipation 30 mL 2023 Active 2023 79801 17930 6 Daily as needed By Mouth False Atorvastati n 40 mg tablet [generic] 08/26 Inactiv e 2023 88593 58170 5 Atorvastati n 40 mg tablet [generic] 40mg By Mouth Once daily For HDL 40mg 2023 Active 2023 21945 48359 5 Once daily By Mouth False Insulin aspart (U-100) 100 unit/mL (3 mL) subcutaneou s pen [generic] 15 units Subcutaneous 1 time For dm 15 units 08/26 Inactiv e 2023 66058 53064 5 1 time Subcut aneous False Humalog KwikPen (U-100) Insulin 100 unit/mL subcutaneou s 15 units Subcutaneous 1 time For dm 15 units 08/27 Inactiv e 2023 71235 73111 9 1 time Subcut aneous False MediHoney HCS 4 1/2in X 4 1/2in bandage Cleanse area with NSS, apply one medihoney hydrocolloid dressing, non adherent dressing, kerlix secure with paper tape daily. For wound stage III 1 2023 0000 /0000 Active 2023 80321 92250 1 Once daily Topica l False VITAL SIGNS Date Time Diastolic blood pressure Systolic blood pressure Body height Body weight Temperature SpO2 Blood Sugar Pulse Respirations 67859 8 67.00 mm[Hg] - Sitting 145.00 mm[Hg] - Sitting 98.50 Forehead Scan 96.00 % 81.00/ min 16.00/min 07765 004 50517 2 67.00 mm[Hg] - Sitting 145.00 mm[Hg] - Sitting 98.50 Tympanic 81.00/ min 16.00/min 61173 004 81852 5 56.00 mm[Hg] - Sitting 142.00 mm[Hg] - Sitting 136.40 NI 100.20 Tympanic 96.00 % 92.00/ min 18.00/min 15445 004 67521 6 30811 004 58930 4 143.00 mg/dL 74571 004 75111 0 97.80 Tympanic 35786 005 49175 7 60.00 mm[Hg] - Sitting 140.00 mm[Hg] - Sitting 98.00 Tympanic 84.00/ min 18.00/min 35254 005 91877 0 63.00 mm[Hg] - Sitting 141.00 mm[Hg] - Sitting 98.20 Tympanic 92.00 % 63.00/ min 16.00/min 00708 005 94228 8 69.00 mm[Hg] - Sitting 106.00 mm[Hg] - Sitting 97.20 Tympanic 51045 005 13688 7 69.00/ min 16.00/min 60632 005 34140 3 69.00 mm[Hg] - Sitting 106.00 mm[Hg] - Sitting 98.20 Tympanic 69.00/ min 16.00/min 38201 005 97705 1 367.00 mg/dL 02156 005 51192 2 97.20 Tympanic 47237 005 06300 4 97.20 Tympanic 81056 005 32538 0 69.00 mm[Hg] - Sitting 106.00 mm[Hg] - Sitting 69.00/ min 96272 005 37118 3 452.00 mg/dL 95930 005 92020 3 452.00 mg/dL 24489 005 92829 5 352.00 mg/dL 06458 005 85372 3 352.00 mg/dL 72019 005 15875 7 98.20 Tympanic 00702 005 83667 3 101.00 mg/dL 03651 005 81765 8 101.00 mg/dL 99111 006 00207 4 66.00 mm[Hg] - Sitting 107.00 mm[Hg] - Sitting 98.00 Tympanic 66.00/ min 18.00/min 74078 006 06856 0 62.00 mm[Hg] - Sitting 162.00 mm[Hg] - Sitting 98.20 Tympanic 96.00 % 60.00/ min 16.00/min 18280 006 93525 4 62.00 mm[Hg] - Sitting 162.00 mm[Hg] - Sitting 98.00 Tympanic 70.00/ min 18.00/min 35026 006 32770 8 62.00 mm[Hg] - Sitting 162.00 mm[Hg] - Sitting 98.20 Tympanic 70.00/ min 18.00/min 45364 006 64358 2 66.00 mm[Hg] - Sitting 132.00 mm[Hg] - Sitting 98.60 Tympanic 74.00/ min 16.00/min 78192 006 57034 5 159.00 mg/dL 51526 006 57288 1 159.00 mg/dL 42017 006 61978 8 98.00 Tympanic 23790 006 57525 2 62.00 mm[Hg] - Sitting 162.00 mm[Hg] - Sitting 70.00/ min 23081 006 12470 7 264.00 mg/dL 74170 006 26035 7 264.00 mg/dL 46423 006 41771 4 196.00 mg/dL 89220 006 27455 3 98.20 Tympanic 40553 006 57645 6 271.00 mg/dL 64435 007 47198 3 97.20 Tympanic 24888 007 44502 2 63.00 mm[Hg] - Sitting 132.00 mm[Hg] - Sitting 98.50 Tympanic 94.00 % 66.00/ min 16.00/min 46927 007 25979 5 188.00 mg/dL 52028 007 35959 2 188.00 mg/dL 70082 007 57944 2 188.00 mg/dL 007 42829 7 97.20 Tympanic 09657 007 03468 6 97.20 Tympanic 78834 007 91720 5 67.00 mm[Hg] - Sitting 152.00 mm[Hg] - Sitting 68.00/ min 007 67778 0 141.00 mg/dL 007 84951 3 141.00 mg/dL
--- OUTSIDE RECORDS SUMMARY | 2024-10-03 11:22 | External Medical Summary | Continuity Of Care Document ---
Author Name Unknown Address [address] [address] Organization [facility] () Care Team Providers Care Analog Ic Design Architect Name Role Phone DO Machado Amy Primary Care Provider [phone] Allergies Allergy Reaction Start Date End Date [...] Day 3 0.1 mL 08/29 Active 2023 54244 52660 0 1 time Intrad ermal False Tubersol 5 tub. unit/0.1 mL intradermal injection solution [Tuberculin PPD] 0.1mL Intradermal 1 time For PPD 2nd Step Give 2nd Step PPD Day 1 and Read results Day 3 (schedule 7 days after 1st READ) 0.1mL 09/08 Active 2023 67567 49595 0 1 time Intrad ermal False Humalog [...] order For Diabetes 08/25 Inactiv e 2023 23651 21951 9 4 times a day Subcut aneous False Aspirin 325 mg tablet [generic] 325 By Mouth Twice daily For Anticoagulati on 325 09/25 Active 2023 43192 77755 1 Twice daily By Mouth False Ferrous sulfate 325 mg (65 mg iron) tablet [generic] 325 By Mouth Once daily For anemia 325 2023 Active 2023 75778 76047 5 Once daily By Mouth False Linezolid 600 mg tablet [generic] 600 mg By Mouth Every 12 hours For MRSA INFECTION L BKA 600 mg 08/25 Inactiv e 2023 41528 83594 1 Every 12 hours By Mouth False Cefpodoxime 200 mg tablet [generic] 400 mg By Mouth Twice daily For MRSA INFECTION L BKA 400 mg 08/25 Inactiv e 2023 08740 40277 0 Twice daily By Mouth False Coenzyme Q10 100 mg tablet [generic] 100 mg By Mouth Once daily For SUPP 100 mg 2023 Active 2023 39055 46467 0 Once daily By Mouth False Levothyroxi ne 50 mcg tablet [generic] 50mcg By Mouth Once daily For hypothyroidis m 50mcg 2023 Active 2023 50149 95651 0 Once daily By Mouth False One A Day Men Complete 240 mcg-25 mcg-300 mcg tablet 1 tab By Mouth Once daily For supplement 1 tab 2023 Active 2023 13980 59860 1 Once daily By Mouth False Cholecalcif adalberto (vitamin D3) 50 mcg (2,000 unit) tablet [generic] 1 TAB By Mouth Once daily For SUPP 1 TAB 2023 Active 2023 31243 65780 1 Once daily By Mouth False Cetirizine 10 mg tablet [generic] 1 TAB By Mouth At bedtime For Allergies 1 TAB 2023 Active 2023 91795 40830 0 At bedtime By Mouth False Timolol maleate 0.25 % eye drops [generic] 1 drop Both Eyes Twice daily For glaucoma 1 drop 2023 Active 2023 84824 13847 5 Twice daily Both Eyes False Alendronate 35 mg tablet [generic] 35mg By Mouth Every week For SIADH 35mg 2023 Active 2023 03413 88196 5 Every week By Mouth False Lantus Solostar U-100 Insulin 100 unit/mL (3 mL) subcutaneou s pen 18 units Subcutaneous Every morning For DIABETES 18 units 08/25 Inactiv e 2023 49450 64624 0 Every morning Subcut aneous False Lantus Solostar U-100 Insulin 100 unit/mL (3 mL) subcutaneou s pen 18 units Subcutaneous Every morning For DIABETES 18 units 2023 Active 2023 62765 0 Every morning Subcut aneous False Linezolid 600 mg tablet [generic] 600 mg By Mouth Every 12 hours For MRSA INFECTION L BKA 600 mg 2023 Active 2023 90366 06774 1 Every 12 hours By Mouth False [...] one-time order For Diabetes 2023 Active 2023 01034 27827 9 4 times a day Subcut aneous False Cefpodoxime 200 mg tablet [generic] 400 mg By Mouth Twice daily For MRSA INFECTION L BKA 400 mg 2023 Active 2023 36373 81227 0 Twice daily By Mouth False Brimonidine 0.1 % eye drops [generic] 1 drop Both Eyes Twice daily For glaucoma 1 drop 2023 Active 2023 25074 56774 0 Twice daily Both Eyes False Metoprolol succinate ER 50 mg tablet,exte nded release 24 hr [generic] 50 mg By Mouth Once daily HOLD FOR SBP <100, or pulse <60 For HTN 50 mg 2023 Active 2023 46104 89344 1 Once daily By Mouth False Amlodipine 2.5 mg tablet [generic] 2.5 mg By Mouth Once daily For HTN 2.5 mg 2023 Active 2023 06675 09327 5 Once daily By Mouth False Docusate sodium 100 mg capsule [generic] 100mg By Mouth Twice daily as needed For constipation HOLD FOR LOOSE STOOLS 100mg 2023 Active 2023 19552 29527 1 Twice daily as needed By Mouth False Atorvastati n 40 mg tablet [generic] 40mg By Mouth Once daily For HDL 40mg 08/26 Inactiv e 2023 45891 60972 5 Once daily By Mouth False Tylenol 325 mg tablet 2 tabs By Mouth Every 4 hours as needed For Pain DO NOT EXCEED 3000 MG APAP/24 Hours 2 tabs 2023 Active 2023 50838 34931 0 Every 4 hours as needed By Mouth False Tylenol 325 mg tablet 2 tabs By Mouth Every 4 hours as needed For Fever >100 DO NOT EXCEED 3000 MG APAP/24 Hours 2 tabs 2023 Active 2023 00644 43145 0 Every 4 hours as needed By Mouth False Dulcolax (bisacodyl) 10 mg rectal suppository One Suppository per rectum PRN if Milk of Magnisia ineffective. Give on day 5 of no BM 1 sup 2023 Active 2023 19510 43664 1 Daily as needed Rectal False Fleet Enema 19 gram-7 gram/118 mL Administer per rectum PRN one time if dulcolax suppository not effective. Give on day 6 of no BM 1 2023 Active 2023 41248 31794 6 Daily as needed Rectal False Dextrose 50 % in water (D50W) intravenous solution [generic] Dextrose 50% evonne 20-50 ml (slow push) Intravenous if Glucagon not effective after 15 minutes. CALL 911 for ED Evaluation. 50% evonne 2023 Active 2023 11283 82980 9 Intrav enous False Glucagon (HCl) Emergency Kit 1 mg solution for injection Administer Glucagon 1 mg Intramuscular if 15 minutes after GLucose Gel is administered Glucose remains less than 70 1 mg 2023 Active 2023 25848 86277 2 Intram uscula r False Glucose Gel 40 % oral gel [Dextrose] PRN If resident is unable to swallow (with or without symptoms) and Glucose results less than 70 give GLucose 40% Gel 1 tube orally - Recheck Glucose 15 minutes after administratio n. 1 tube 2023 Active 2023 38570 90745 8 By Mouth False Milk of Magnesia 400 mg/5 mL oral suspension [Magnesium hydroxide] PRN 30ml By Mouth Daily as needed for constipation one time daily if no BM, on day 4 of no BM (PRN refer to instructions) For Constipation 30 mL 2023 Active 2023 64149 05354 6 Daily as needed By Mouth False Atorvastati n 40 mg tablet [generic] 08/26 Inactiv e 2023 75415 23504 5 Atorvastati n 40 mg tablet [generic] 40mg By Mouth Once daily For HDL 40mg 2023 Active 2023 34214 67916 5 Once daily By Mouth False Insulin aspart (U-100) 100 unit/mL (3 mL) subcutaneou s pen [generic] 15 units Subcutaneous 1 time For dm 15 units 08/26 Inactiv e 2023 33492 39645 5 1 time Subcut aneous False Humalog KwikPen (U-100) Insulin 100 unit/mL subcutaneou s 15 units Subcutaneous 1 time For dm 15 units 08/27 Inactiv e 2023 93738 88150 9 1 time Subcut aneous False MediHoney HCS 4 1/2in X 4 1/2in bandage Cleanse area with NSS, apply one medihoney hydrocolloid dressing, non adherent dressing, kerlix secure with paper tape daily. For wound stage III 1 2023 Active 2023 94445 72754 1 Once daily Topica l False Problems [...] Active H40.9 Unspecified glaucoma 08/25/2024 Acti ve VITAL SIGNS Date Time Diastolic blood pressure Systolic blood pressure Body height Body weight Temperature SpO2 Blood Sugar Pulse Respirations 91242 8 67.00 mm[Hg] - Sitting 145.00 mm[Hg] - Sitting 98.50 Forehead Scan 96.00 % 81.00/ min 16.00/min 52051 2 67.00 mm[Hg] - Sitting 145.00 mm[Hg] - Sitting 98.50 Tympanic 81.00/ min 16.00/min 72072 5 56.00 mm[Hg] - Sitting 142.00 mm[Hg] - Sitting 136.40 NI 100.20 Tympanic 96.00 % 92.00/ min 18.00/min 57003 004 18080 6 56658 004 49856 4 143.00 mg/dL 41352 004 67506 0 97.80 Tympanic 00404 005 62271 7 60.00 mm[Hg] - Sitting 140.00 mm[Hg] - Sitting 98.00 Tympanic 84.00/ min 18.00/min 47100 005 05742 0 63.00 mm[Hg] - Sitting 141.00 mm[Hg] - Sitting 98.20 Tympanic 92.00 % 63.00/ min 16.00/min 95692 005 07920 8 69.00 mm[Hg] - Sitting 106.00 mm[Hg] - Sitting 97.20 Tympanic 60860 005 08451 7 69.00/ min 16.00/min 57160 005 43241 3 69.00 mm[Hg] - Sitting 106.00 mm[Hg] - Sitting 98.20 Tympanic 69.00/ min 16.00/min 04603 005 11533 1 367.00 mg/dL 18046 005 68339 2 97.20 Tympanic 03110 005 08947 4 97.20 Tympanic 83001 005 05292 0 69.00 mm[Hg] - Sitting 106.00 mm[Hg] - Sitting 69.00/ min 30852 005 03903 3 452.00 mg/dL 66507 005 52873 3 452.00 mg/dL 27937 005 62282 5 352.00 mg/dL 39638 005 76002 3 352.00 mg/dL 49416 005 95997 7 98.20 Tympanic 00968 005 3 101.00 mg/dL 88083 005 8 101.00 mg/dL 93457 006 94955 4 66.00 mm[Hg] - Sitting 107.00 mm[Hg] - Sitting 98.00 Tympanic 66.00/ min 18.00/min 10798 006 52301 0 62.00 mm[Hg] - Sitting 162.00 mm[Hg] - Sitting 98.20 Tympanic 96.00 % 60.00/ min 16.00/min 68583 006 97224 4 62.00 mm[Hg] - Sitting 162.00 mm[Hg] - Sitting 98.00 Tympanic 70.00/ min 18.00/min 26970 006 40832 8 62.00 mm[Hg] - Sitting 162.00 mm[Hg] - Sitting 98.20 Tympanic 70.00/ min 18.00/min 97248 006 73396 2 66.00 mm[Hg] - Sitting 132.00 mm[Hg] - Sitting 98.60 Tympanic 74.00/ min 16.00/min 71040 006 54460 5 159.00 mg/dL 88368 006 42148 1 159.00 mg/dL 99962 006 20289 8 98.00 Tympanic 36609 006 53254 2 62.00 mm[Hg] - Sitting 162.00 mm[Hg] - Sitting 70.00/ min 53735 006 30781 7 264.00 mg/dL 88071 006 17382 7 264.00 mg/dL 60653 006 51650 4 196.00 mg/dL 27063 006 76217 3 98.20 Tympanic 82370 006 94340 6 271.00 mg/dL 39973 007 25609 3 97.20 Tympanic 61222 007 86207 2 63.00 mm[Hg] - Sitting 132.00 mm[Hg] - Sitting 98.50 Tympanic 94.00 % 66.00/ min 16.00/min 94625 007 52267 5 188.00 mg/dL 60231 007 50783 2 188.00 mg/dL 79140 007 34187 2 188.00 mg/dL 36413 007 99118 7 97.20 Tympanic 03098 007 42161 6 97.20 Tympanic 68862 007 55685 5 67.00 mm[Hg] - Sitting 152.00 mm[Hg] - Sitting 68.00/ min 70069 007 72134 0 141.00 mg/dL 80552 007 62859 3 141.00 mg/dL
--- OUTSIDE RECORDS SUMMARY | 2024-10-03 11:23 | External Medical Summary | Continuity Of Care Document ---
Author Name Unknown Address [address] [address] Organization [facility] () Care Team Providers Care Transformer Inspector Name Role Phone DO Macahdo Amy Primary Care Provider [phone] Allergies Allergy Reaction Start Date End Date Status TRAMADOL Weakness Active AMOXICILLIN Nausea, Weakness Active Medications Medication Instructions Dosage Start Date End Date Status Order Date Drug Code Frequency Route of Admin Diagnosis Code Substitutions Allowed Tubersol 5 tub. unit/0.1 mL intradermal injection solution [Tuberculin PPD] 0.1 mL Intradermal 1 time For PPD Step 1 GIVE on Day 1 and read results Day 3 0.1 mL 08/29 Active 2023 28688 30850 0 1 time Intrad ermal False Tubersol 5 tub. unit/0.1 mL intradermal injection solution [Tuberculin PPD] 0.1mL Intradermal 1 time For PPD 2nd Step Give 2nd Step PPD Day 1 and Read results Day 3 (schedule 7 days after 1st READ) 0.1mL 09/08 Active 2023 57535 74237 0 1 time Intrad ermal False Humalog [...] order For Diabetes 08/25 Inactiv e 2023 95241 67113 9 4 times a day Subcut aneous False Aspirin 325 mg tablet [generic] 325 By Mouth Twice daily For Anticoagulati on 325 09/25 Active 2023 69604 18038 1 Twice daily By Mouth False Ferrous sulfate 325 mg (65 mg iron) tablet [generic] 325 By Mouth Once daily For anemia 325 2023 Active 2023 61692 17380 5 Once daily By Mouth False Linezolid 600 mg tablet [generic] 600 mg By Mouth Every 12 hours For MRSA INFECTION L BKA 600 mg 08/25 Inactiv e 2023 30152 48861 1 Every 12 hours By Mouth False Cefpodoxime 200 mg tablet [generic] 400 mg By Mouth Twice daily For MRSA INFECTION L BKA 400 mg 08/25 Inactiv e 2023 14497 66392 0 Twice daily By Mouth False Coenzyme Q10 100 mg tablet [generic] 100 mg By Mouth Once daily For SUPP 100 mg 2023 Active 2023 07596 92113 0 Once daily By Mouth False Levothyroxi ne 50 mcg tablet [generic] 50mcg By Mouth Once daily For hypothyroidis m 50mcg 2023 Active 2023 44644 84450 0 Once daily By Mouth False One A Day Men Complete 240 mcg-25 mcg-300 mcg tablet 1 tab By Mouth Once daily For supplement 1 tab 2023 Active 2023 50081 56018 1 Once daily By Mouth False Cholecalcif adalberto (vitamin D3) 50 mcg (2,000 unit) tablet [generic] 1 TAB By Mouth Once daily For SUPP 1 TAB 2023 Active 2023 47882 47211 1 Once daily By Mouth False Cetirizine 10 mg tablet [generic] 1 TAB By Mouth At bedtime For Allergies 1 TAB 2023 Active 2023 18134 99523 0 At bedtime By Mouth False Timolol maleate 0.25 % eye drops [generic] 1 drop Both Eyes Twice daily For glaucoma 1 drop 2023 Active 2023 30739 64052 5 Twice daily Both Eyes False Alendronate 35 mg tablet [generic] 35mg By Mouth Every week For SIADH 35mg 2023 Active 2023 97868 68928 5 Every week By Mouth False Lantus Solostar U-100 Insulin 100 unit/mL (3 mL) subcutaneou s pen 18 units Subcutaneous Every morning For DIABETES 18 units 08/25 Inactiv e 2023 20914 15758 0 Every morning Subcut aneous False Lantus Solostar U-100 Insulin 100 unit/mL (3 mL) subcutaneou s pen 18 units Subcutaneous Every morning For DIABETES 18 units 2023 Active 2023 94797 0 Every morning Subcut aneous False Linezolid 600 mg tablet [generic] 600 mg By Mouth Every 12 hours For MRSA INFECTION L BKA 600 mg 2023 Active 2023 31841 70865 1 Every 12 hours By Mouth False [...] one-time order For Diabetes 2023 Active 2023 90353 66994 9 4 times a day Subcut aneous False Cefpodoxime 200 mg tablet [generic] 400 mg By Mouth Twice daily For MRSA INFECTION L BKA 400 mg 2023 Active 2023 20328 52765 0 Twice daily By Mouth False Brimonidine 0.1 % eye drops [generic] 1 drop Both Eyes Twice daily For glaucoma 1 drop 2023 Active 2023 89737 94954 0 Twice daily Both Eyes False Metoprolol succinate ER 50 mg tablet,exte nded release 24 hr [generic] 50 mg By Mouth Once daily HOLD FOR SBP <100, or pulse <60 For HTN 50 mg 2023 Active 2023 72544 08889 1 Once daily By Mouth False Amlodipine 2.5 mg tablet [generic] 2.5 mg By Mouth Once daily For HTN 2.5 mg 2023 Active 2023 90044 15827 5 Once daily By Mouth False Docusate sodium 100 mg capsule [generic] 100mg By Mouth Twice daily as needed For constipation HOLD FOR LOOSE STOOLS 100mg 2023 Active 2023 84045 54468 1 Twice daily as needed By Mouth False Atorvastati n 40 mg tablet [generic] 40mg By Mouth Once daily For HDL 40mg 2023 Active 2023 63106 23829 5 Once daily By Mouth False Tylenol 325 mg tablet 2 tabs By Mouth Every 4 hours as needed For Pain DO NOT EXCEED 3000 MG APAP/24 Hours 2 tabs 2023 Active 2023 49730 16867 0 Every 4 hours as needed By Mouth False Tylenol 325 mg tablet 2 tabs By Mouth Every 4 hours as needed For Fever >100 DO NOT EXCEED 3000 MG APAP/24 Hours 2 tabs 2023 Active 2023 62145 53440 0 Every 4 hours as needed By Mouth False Dulcolax (bisacodyl) 10 mg rectal suppository One Suppository per rectum PRN if Milk of Magnisia ineffective. Give on day 5 of no BM 1 sup 2023 Active 2023 16654 53835 1 Daily as needed Rectal False Fleet Enema 19 gram-7 gram/118 mL Administer per rectum PRN one time if dulcolax suppository not effective. Give on day 6 of no BM 1 2023 Active 2023 76677 18807 6 Daily as needed Rectal False Dextrose 50 % in water (D50W) intravenous solution [generic] Dextrose 50% evonne 20-50 ml (slow push) Intravenous if Glucagon not effective after 15 minutes. CALL 911 for ED Evaluation. 50% evonne 2023 Active 2023 19743 32847 9 Intrav enous False Glucagon (HCl) Emergency Kit 1 mg solution for injection Administer Glucagon 1 mg Intramuscular if 15 minutes after GLucose Gel is administered Glucose remains less than 70 1 mg 2023 Active 2023 57073 39445 2 Intram uscula r False Glucose Gel 40 % oral gel [Dextrose] PRN If resident is unable to swallow (with or without symptoms) and Glucose results less than 70 give GLucose 40% Gel 1 tube orally - Recheck Glucose 15 minutes after administratio n. 1 tube 2023 Active 2023 20792 97011 8 By Mouth False Milk of Magnesia 400 mg/5 mL oral suspension [Magnesium hydroxide] PRN 30ml By Mouth Daily as needed for constipation one time daily if no BM, on day 4 of no BM (PRN refer to instructions) For Constipation 30 mL 2023 Active 2023 29964 24009 6 Daily as needed By Mouth False VITAL SIGNS Date Time Diastolic blood pressure Systolic blood pressure Body height Body weight Temperature SpO2 Blood Sugar Pulse Respirations 91186 8 67.00 mm[Hg] - Sitting 145.00 mm[Hg] - Sitting 98.50 Forehead Scan 96.00 % 81.00/ min 16.00/min 25887 2 67.00 mm[Hg] - Sitting 145.00 mm[Hg] - Sitting 98.50 Tympanic 81.00/ min 16.00/min 16189 5 56.00 mm[Hg] - Sitting 142.00 mm[Hg] - Sitting 136.40 NI 100.20 Tympanic 96.00 % 92.00/ min 18.00/min
--- OUTSIDE RECORDS SUMMARY | 2024-10-03 11:23 | External Medical Summary | Continuity Of Care Document ---
Author Name Unknown Address [address] [address] Organization [facility] () Care Team Providers Care Assistant Art Director Name Role Phone DO Machado Amy Primary Care Provider [phone] Allergies Allergy Reaction Start Date End Date [...] Day 3 0.1 mL 08/29 Active 2023 50990 69266 0 1 time Intrad ermal False Tubersol 5 tub. unit/0.1 mL intradermal injection solution [Tuberculin PPD] 0.1mL Intradermal 1 time For PPD 2nd Step Give 2nd Step PPD Day 1 and Read results Day 3 (schedule 7 days after 1st READ) 0.1mL 09/08 Active 2023 00921 31928 0 1 time Intrad ermal False Humalog [...] order For Diabetes 08/25 Inactiv e 2023 32695 44641 9 4 times a day Subcut aneous False Aspirin 325 mg tablet [generic] 325 By Mouth Twice daily For Anticoagulati on 325 09/25 Active 2023 66420 29086 1 Twice daily By Mouth False Ferrous sulfate 325 mg (65 mg iron) tablet [generic] 325 By Mouth Once daily For anemia 325 2023 Active 2023 51854 53869 5 Once daily By Mouth False Linezolid 600 mg tablet [generic] 600 mg By Mouth Every 12 hours For MRSA INFECTION L BKA 600 mg 08/25 Inactiv e 2023 76225 47379 1 Every 12 hours By Mouth False Cefpodoxime 200 mg tablet [generic] 400 mg By Mouth Twice daily For MRSA INFECTION L BKA 400 mg 08/25 Inactiv e 2023 71186 50304 0 Twice daily By Mouth False Coenzyme Q10 100 mg tablet [generic] 100 mg By Mouth Once daily For SUPP 100 mg 2023 Active 2023 88859 30261 0 Once daily By Mouth False Levothyroxi ne 50 mcg tablet [generic] 50mcg By Mouth Once daily For hypothyroidis m 50mcg 2023 Active 2023 38591 52827 0 Once daily By Mouth False One A Day Men Complete 240 mcg-25 mcg-300 mcg tablet 1 tab By Mouth Once daily For supplement 1 tab 2023 Active 2023 90681 68999 1 Once daily By Mouth False Cholecalcif adalberto (vitamin D3) 50 mcg (2,000 unit) tablet [generic] 1 TAB By Mouth Once daily For SUPP 1 TAB 2023 Active 2023 62240 79207 1 Once daily By Mouth False Cetirizine 10 mg tablet [generic] 1 TAB By Mouth At bedtime For Allergies 1 TAB 2023 Active 2023 59718 67564 0 At bedtime By Mouth False Timolol maleate 0.25 % eye drops [generic] 1 drop Both Eyes Twice daily For glaucoma 1 drop 2023 Active 2023 81409 31050 5 Twice daily Both Eyes False Alendronate 35 mg tablet [generic] 35mg By Mouth Every week For SIADH 35mg 2023 Active 2023 86243 16607 5 Every week By Mouth False Lantus Solostar U-100 Insulin 100 unit/mL (3 mL) subcutaneou s pen 18 units Subcutaneous Every morning For DIABETES 18 units 08/25 Inactiv e 2023 14828 94915 0 Every morning Subcut aneous False Lantus Solostar U-100 Insulin 100 unit/mL (3 mL) subcutaneou s pen 18 units Subcutaneous Every morning For DIABETES 18 units 2023 Active 2023 96447 0 Every morning Subcut aneous False Linezolid 600 mg tablet [generic] 600 mg By Mouth Every 12 hours For MRSA INFECTION L BKA 600 mg 2023 Active 2023 10921 78336 1 Every 12 hours By Mouth False [...] one-time order For Diabetes 2023 Active 2023 59001 69937 9 4 times a day Subcut aneous False Cefpodoxime 200 mg tablet [generic] 400 mg By Mouth Twice daily For MRSA INFECTION L BKA 400 mg 2023 Active 2023 31714 80724 0 Twice daily By Mouth False Brimonidine 0.1 % eye drops [generic] 1 drop Both Eyes Twice daily For glaucoma 1 drop 2023 Active 2023 31080 85155 0 Twice daily Both Eyes False Metoprolol succinate ER 50 mg tablet,exte nded release 24 hr [generic] 50 mg By Mouth Once daily HOLD FOR SBP <100, or pulse <60 For HTN 50 mg 2023 Active 2023 08079 31285 1 Once daily By Mouth False Amlodipine 2.5 mg tablet [generic] 2.5 mg By Mouth Once daily For HTN 2.5 mg 2023 Active 2023 59534 42318 5 Once daily By Mouth False Docusate sodium 100 mg capsule [generic] 100mg By Mouth Twice daily as needed For constipation HOLD FOR LOOSE STOOLS 100mg 2023 Active 2023 67954 67944 1 Twice daily as needed By Mouth False Atorvastati n 40 mg tablet [generic] 40mg By Mouth Once daily For HDL 40mg 08/26 Inactiv e 2023 99505 98853 5 Once daily By Mouth False Tylenol 325 mg tablet 2 tabs By Mouth Every 4 hours as needed For Pain DO NOT EXCEED 3000 MG APAP/24 Hours 2 tabs 2023 Active 2023 81412 95305 0 Every 4 hours as needed By Mouth False Tylenol 325 mg tablet 2 tabs By Mouth Every 4 hours as needed For Fever >100 DO NOT EXCEED 3000 MG APAP/24 Hours 2 tabs 2023 Active 2023 85442 89294 0 Every 4 hours as needed By Mouth False Dulcolax (bisacodyl) 10 mg rectal suppository One Suppository per rectum PRN if Milk of Magnisia ineffective. Give on day 5 of no BM 1 sup 2023 Active 2023 51885 40755 1 Daily as needed Rectal False Fleet Enema 19 gram-7 gram/118 mL Administer per rectum PRN one time if dulcolax suppository not effective. Give on day 6 of no BM 1 2023 Active 2023 62908 64899 6 Daily as needed Rectal False Dextrose 50 % in water (D50W) intravenous solution [generic] Dextrose 50% evonne 20-50 ml (slow push) Intravenous if Glucagon not effective after 15 minutes. CALL 911 for ED Evaluation. 50% evonne 2023 Active 2023 33639 20918 9 Intrav enous False Glucagon (HCl) Emergency Kit 1 mg solution for injection Administer Glucagon 1 mg Intramuscular if 15 minutes after GLucose Gel is administered Glucose remains less than 70 1 mg 2023 Active 2023 14797 72098 2 Intram uscula r False Glucose Gel 40 % oral gel [Dextrose] PRN If resident is unable to swallow (with or without symptoms) and Glucose results less than 70 give GLucose 40% Gel 1 tube orally - Recheck Glucose 15 minutes after administratio n. 1 tube 2023 Active 2023 70630 27454 8 By Mouth False Milk of Magnesia 400 mg/5 mL oral suspension [Magnesium hydroxide] PRN 30ml By Mouth Daily as needed for constipation one time daily if no BM, on day 4 of no BM (PRN refer to instructions) For Constipation 30 mL 2023 Active 2023 77929 14900 6 Daily as needed By Mouth False Atorvastati n 40 mg tablet [generic] 08/26 Inactiv e 2023 11649 78531 5 Atorvastati n 40 mg tablet [generic] 40mg By Mouth Once daily For HDL 40mg 2023 Active 2023 67391 26988 5 Once daily By Mouth False Insulin aspart (U-100) 100 unit/mL (3 mL) subcutaneou s pen [generic] 15 units Subcutaneous 1 time For dm 15 units 08/26 Inactiv e 2023 09598 71805 5 1 time Subcut aneous False Humalog KwikPen (U-100) Insulin 100 unit/mL subcutaneou s 15 units Subcutaneous 1 time For dm 15 units 08/27 Inactiv e 2023 15894 39396 9 1 time Subcut aneous False MediHoney HCS 4 1/2in X 4 1/2in bandage Cleanse area with NSS, apply one medihoney hydrocolloid dressing, non adherent dressing, kerlix secure with paper tape daily. For wound stage III 1 2023 0000 /0000 Active 2023 44245 22439 1 Once daily Topica l False VITAL SIGNS Date Time Diastolic blood pressure Systolic blood pressure Body height Body weight Temperature SpO2 Blood Sugar Pulse Respirations 08065 8 67.00 mm[Hg] - Sitting 145.00 mm[Hg] - Sitting 98.50 Forehead Scan 96.00 % 81.00/ min 16.00/min 72143 004 13032 2 67.00 mm[Hg] - Sitting 145.00 mm[Hg] - Sitting 98.50 Tympanic 81.00/ min 16.00/min 43174 004 27773 5 56.00 mm[Hg] - Sitting 142.00 mm[Hg] - Sitting 136.40 NI 100.20 Tympanic 96.00 % 92.00/ min 18.00/min 78252 004 21992 6 65958 004 58933 4 143.00 mg/dL 17707 004 49297 0 97.80 Tympanic 03739 005 96308 7 60.00 mm[Hg] - Sitting 140.00 mm[Hg] - Sitting 98.00 Tympanic 84.00/ min 18.00/min 91948 005 48487 0 63.00 mm[Hg] - Sitting 141.00 mm[Hg] - Sitting 98.20 Tympanic 92.00 % 63.00/ min 16.00/min 09534 005 54926 8 69.00 mm[Hg] - Sitting 106.00 mm[Hg] - Sitting 97.20 Tympanic 47644 005 43524 7 69.00/ min 16.00/min 39909 005 07670 3 69.00 mm[Hg] - Sitting 106.00 mm[Hg] - Sitting 98.20 Tympanic 69.00/ min 16.00/min 24647 005 88247 1 367.00 mg/dL 23750 005 28531 2 97.20 Tympanic 30794 005 95896 4 97.20 Tympanic 06904 005 26485 0 69.00 mm[Hg] - Sitting 106.00 mm[Hg] - Sitting 69.00/ min 92299 005 34218 3 452.00 mg/dL 31639 005 80151 3 452.00 mg/dL 83138 005 27833 5 352.00 mg/dL 53387 005 62875 3 352.00 mg/dL 34240 005 94437 7 98.20 Tympanic 81340 005 3 101.00 mg/dL 00979 005 8 101.00 mg/dL 57908 006 19811 4 66.00 mm[Hg] - Sitting 107.00 mm[Hg] - Sitting 98.00 Tympanic 66.00/ min 18.00/min 97195 006 46592 5 159.00 mg/dL
--- OUTSIDE RECORDS SUMMARY | 2024-10-03 11:23 | External Medical Summary | Continuity Of Care Document ---
Author Name Unknown Address [address] [address] Organization [facility] () Care Team Providers Care Bath Solution Maker Name Role Phone DO Machado Amy Primary Care Provider [phone] Allergies Allergy Reaction Start Date End Date [...] Day 3 0.1 mL 08/29 Active 2023 10525 08016 0 1 time Intrad ermal False Tubersol 5 tub. unit/0.1 mL intradermal injection solution [Tuberculin PPD] 0.1mL Intradermal 1 time For PPD 2nd Step Give 2nd Step PPD Day 1 and Read results Day 3 (schedule 7 days after 1st READ) 0.1mL 09/08 Active 2023 63267 23680 0 1 time Intrad ermal False Humalog [...] order For Diabetes 08/25 Inactiv e 2023 78583 93479 9 4 times a day Subcut aneous False Aspirin 325 mg tablet [generic] 325 By Mouth Twice daily For Anticoagulati on 325 09/25 Active 2023 55480 11040 1 Twice daily By Mouth False Ferrous sulfate 325 mg (65 mg iron) tablet [generic] 325 By Mouth Once daily For anemia 325 2023 Active 2023 46577 25994 5 Once daily By Mouth False Linezolid 600 mg tablet [generic] 600 mg By Mouth Every 12 hours For MRSA INFECTION L BKA 600 mg 08/25 Inactiv e 2023 18355 63458 1 Every 12 hours By Mouth False Cefpodoxime 200 mg tablet [generic] 400 mg By Mouth Twice daily For MRSA INFECTION L BKA 400 mg 08/25 Inactiv e 2023 58724 59528 0 Twice daily By Mouth False Coenzyme Q10 100 mg tablet [generic] 100 mg By Mouth Once daily For SUPP 100 mg 2023 Active 2023 64210 54288 0 Once daily By Mouth False Levothyroxi ne 50 mcg tablet [generic] 50mcg By Mouth Once daily For hypothyroidis m 50mcg 2023 Active 2023 11105 22761 0 Once daily By Mouth False One A Day Men Complete 240 mcg-25 mcg-300 mcg tablet 1 tab By Mouth Once daily For supplement 1 tab 2023 Active 2023 42992 71702 1 Once daily By Mouth False Cholecalcif adalberto (vitamin D3) 50 mcg (2,000 unit) tablet [generic] 1 TAB By Mouth Once daily For SUPP 1 TAB 2023 Active 2023 28234 10801 1 Once daily By Mouth False Cetirizine 10 mg tablet [generic] 1 TAB By Mouth At bedtime For Allergies 1 TAB 2023 Active 2023 58261 62232 0 At bedtime By Mouth False Timolol maleate 0.25 % eye drops [generic] 1 drop Both Eyes Twice daily For glaucoma 1 drop 2023 Active 2023 20534 74686 5 Twice daily Both Eyes False Alendronate 35 mg tablet [generic] 35mg By Mouth Every week For SIADH 35mg 2023 Active 2023 26344 93922 5 Every week By Mouth False Lantus Solostar U-100 Insulin 100 unit/mL (3 mL) subcutaneou s pen 18 units Subcutaneous Every morning For DIABETES 18 units 08/25 Inactiv e 2023 47096 73746 0 Every morning Subcut aneous False Lantus Solostar U-100 Insulin 100 unit/mL (3 mL) subcutaneou s pen 18 units Subcutaneous Every morning For DIABETES 18 units 2023 Active 2023 96877 0 Every morning Subcut aneous False Linezolid 600 mg tablet [generic] 600 mg By Mouth Every 12 hours For MRSA INFECTION L BKA 600 mg 2023 Active 2023 36597 94765 1 Every 12 hours By Mouth False [...] one-time order For Diabetes 2023 Active 2023 41487 76564 9 4 times a day Subcut aneous False Cefpodoxime 200 mg tablet [generic] 400 mg By Mouth Twice daily For MRSA INFECTION L BKA 400 mg 2023 Active 2023 04104 98288 0 Twice daily By Mouth False Brimonidine 0.1 % eye drops [generic] 1 drop Both Eyes Twice daily For glaucoma 1 drop 2023 Active 2023 78000 52676 0 Twice daily Both Eyes False Metoprolol succinate ER 50 mg tablet,exte nded release 24 hr [generic] 50 mg By Mouth Once daily HOLD FOR SBP <100, or pulse <60 For HTN 50 mg 2023 Active 2023 89537 62887 1 Once daily By Mouth False Amlodipine 2.5 mg tablet [generic] 2.5 mg By Mouth Once daily For HTN 2.5 mg 2023 Active 2023 87576 02793 5 Once daily By Mouth False Docusate sodium 100 mg capsule [generic] 100mg By Mouth Twice daily as needed For constipation HOLD FOR LOOSE STOOLS 100mg 2023 Active 2023 42843 41306 1 Twice daily as needed By Mouth False Atorvastati n 40 mg tablet [generic] 40mg By Mouth Once daily For HDL 40mg 08/26 Inactiv e 2023 25602 90667 5 Once daily By Mouth False Tylenol 325 mg tablet 2 tabs By Mouth Every 4 hours as needed For Pain DO NOT EXCEED 3000 MG APAP/24 Hours 2 tabs 2023 Active 2023 28061 00579 0 Every 4 hours as needed By Mouth False Tylenol 325 mg tablet 2 tabs By Mouth Every 4 hours as needed For Fever >100 DO NOT EXCEED 3000 MG APAP/24 Hours 2 tabs 2023 Active 2023 90264 88964 0 Every 4 hours as needed By Mouth False Dulcolax (bisacodyl) 10 mg rectal suppository One Suppository per rectum PRN if Milk of Magnisia ineffective. Give on day 5 of no BM 1 sup 2023 Active 2023 91116 25726 1 Daily as needed Rectal False Fleet Enema 19 gram-7 gram/118 mL Administer per rectum PRN one time if dulcolax suppository not effective. Give on day 6 of no BM 1 2023 Active 2023 31245 28014 6 Daily as needed Rectal False Dextrose 50 % in water (D50W) intravenous solution [generic] Dextrose 50% evonne 20-50 ml (slow push) Intravenous if Glucagon not effective after 15 minutes. CALL 911 for ED Evaluation. 50% evonne 2023 Active 2023 01725 93959 9 Intrav enous False Glucagon (HCl) Emergency Kit 1 mg solution for injection Administer Glucagon 1 mg Intramuscular if 15 minutes after GLucose Gel is administered Glucose remains less than 70 1 mg 2023 Active 2023 13252 59225 2 Intram uscula r False Glucose Gel 40 % oral gel [Dextrose] PRN If resident is unable to swallow (with or without symptoms) and Glucose results less than 70 give GLucose 40% Gel 1 tube orally - Recheck Glucose 15 minutes after administratio n. 1 tube 2023 Active 2023 14232 09003 8 By Mouth False Milk of Magnesia 400 mg/5 mL oral suspension [Magnesium hydroxide] PRN 30ml By Mouth Daily as needed for constipation one time daily if no BM, on day 4 of no BM (PRN refer to instructions) For Constipation 30 mL 2023 Active 2023 55493 14652 6 Daily as needed By Mouth False Atorvastati n 40 mg tablet [generic] 08/26 Inactiv e 2023 77634 19359 5 Atorvastati n 40 mg tablet [generic] 40mg By Mouth Once daily For HDL 40mg 2023 Active 2023 16429 10760 5 Once daily By Mouth False Insulin aspart (U-100) 100 unit/mL (3 mL) subcutaneou s pen [generic] 15 units Subcutaneous 1 time For dm 15 units 08/26 Inactiv e 2023 22039 77563 5 1 time Subcut aneous False Humalog KwikPen (U-100) Insulin 100 unit/mL subcutaneou s 15 units Subcutaneous 1 time For dm 15 units 08/27 Inactiv e 2023 37007 77237 9 1 time Subcut aneous False MediHoney HCS 4 1/2in X 4 1/2in bandage Cleanse area with NSS, apply one medihoney hydrocolloid dressing, non adherent dressing, kerlix secure with paper tape daily. For wound stage III 1 2023 0000 /0000 Active 2023 14332 63610 1 Once daily Topica l False VITAL SIGNS Date Time Diastolic blood pressure Systolic blood pressure Body height Body weight Temperature SpO2 Blood Sugar Pulse Respirations 29481 8 67.00 mm[Hg] - Sitting 145.00 mm[Hg] - Sitting 98.50 Forehead Scan 96.00 % 81.00/ min 16.00/min 83057 004 98514 2 67.00 mm[Hg] - Sitting 145.00 mm[Hg] - Sitting 98.50 Tympanic 81.00/ min 16.00/min 43492 004 88491 5 56.00 mm[Hg] - Sitting 142.00 mm[Hg] - Sitting 136.40 NI 100.20 Tympanic 96.00 % 92.00/ min 18.00/min 79110 004 69163 6 59352 004 62779 4 143.00 mg/dL 15407 004 52999 0 97.80 Tympanic 36771 005 06517 7 60.00 mm[Hg] - Sitting 140.00 mm[Hg] - Sitting 98.00 Tympanic 84.00/ min 18.00/min 78256 005 04437 0 63.00 mm[Hg] - Sitting 141.00 mm[Hg] - Sitting 98.20 Tympanic 92.00 % 63.00/ min 16.00/min 76070 005 75428 8 69.00 mm[Hg] - Sitting 106.00 mm[Hg] - Sitting 97.20 Tympanic 87529 005 28851 7 69.00/ min 16.00/min 05670 005 97502 3 69.00 mm[Hg] - Sitting 106.00 mm[Hg] - Sitting 98.20 Tympanic 69.00/ min 16.00/min 78013 005 80483 1 367.00 mg/dL 30581 005 39110 2 97.20 Tympanic 18896 005 16274 4 97.20 Tympanic 93915 005 42016 0 69.00 mm[Hg] - Sitting 106.00 mm[Hg] - Sitting 69.00/ min 92194 005 59363 3 452.00 mg/dL 18609 005 85217 3 452.00 mg/dL 45681 005 23560 5 352.00 mg/dL 93150 005 82024 3 352.00 mg/dL 72603 005 11301 7 98.20 Tympanic 32894 005 3 101.00 mg/dL 70168 005 8 101.00 mg/dL 11785 006 93678 4 66.00 mm[Hg] - Sitting 107.00 mm[Hg] - Sitting 98.00 Tympanic 66.00/ min 18.00/min 70005 006 46320 5 159.00 mg/dL 59029 006 96196 1 159.00 mg/dL 35901 006 56488 8 98.00 Tympanic 35193 006 96784 2 62.00 mm[Hg] - Sitting 162.00 mm[Hg] - Sitting 70.00/ min 44355 006 10937 7 264.00 mg/dL 56780 006 81927 7 264.00 mg/dL
--- OUTSIDE RECORDS SUMMARY | 2024-10-03 11:23 | External Medical Summary | Continuity Of Care Document ---
Author Name Unknown Address [address] [address] Organization [facility] () Care Team Providers Care Consumer Loan Underwriter Name Role Phone DO Machado Amy Primary Care Provider [phone] Allergies Allergy Reaction Start Date End Date [...] Day 3 0.1 mL 08/29 Active 2023 12683 02836 0 1 time Intrad ermal False Tubersol 5 tub. unit/0.1 mL intradermal injection solution [Tuberculin PPD] 0.1mL Intradermal 1 time For PPD 2nd Step Give 2nd Step PPD Day 1 and Read results Day 3 (schedule 7 days after 1st READ) 0.1mL 09/08 Active 2023 25672 48061 0 1 time Intrad ermal False Humalog [...] order For Diabetes 08/25 Inactiv e 2023 08632 99478 9 4 times a day Subcut aneous False Aspirin 325 mg tablet [generic] 325 By Mouth Twice daily For Anticoagulati on 325 09/25 Active 2023 51728 89982 1 Twice daily By Mouth False Ferrous sulfate 325 mg (65 mg iron) tablet [generic] 325 By Mouth Once daily For anemia 325 2023 Active 2023 13226 74587 5 Once daily By Mouth False Linezolid 600 mg tablet [generic] 600 mg By Mouth Every 12 hours For MRSA INFECTION L BKA 600 mg 08/25 Inactiv e 2023 87216 37280 1 Every 12 hours By Mouth False Cefpodoxime 200 mg tablet [generic] 400 mg By Mouth Twice daily For MRSA INFECTION L BKA 400 mg 08/25 Inactiv e 2023 83871 59234 0 Twice daily By Mouth False Coenzyme Q10 100 mg tablet [generic] 100 mg By Mouth Once daily For SUPP 100 mg 2023 Active 2023 16971 52436 0 Once daily By Mouth False Levothyroxi ne 50 mcg tablet [generic] 50mcg By Mouth Once daily For hypothyroidis m 50mcg 2023 Active 2023 76715 21846 0 Once daily By Mouth False One A Day Men Complete 240 mcg-25 mcg-300 mcg tablet 1 tab By Mouth Once daily For supplement 1 tab 2023 Active 2023 08205 01441 1 Once daily By Mouth False Cholecalcif adalberto (vitamin D3) 50 mcg (2,000 unit) tablet [generic] 1 TAB By Mouth Once daily For SUPP 1 TAB 2023 Active 2023 19464 07013 1 Once daily By Mouth False Cetirizine 10 mg tablet [generic] 1 TAB By Mouth At bedtime For Allergies 1 TAB 2023 Active 2023 93701 17019 0 At bedtime By Mouth False Timolol maleate 0.25 % eye drops [generic] 1 drop Both Eyes Twice daily For glaucoma 1 drop 2023 Active 2023 21255 38431 5 Twice daily Both Eyes False Alendronate 35 mg tablet [generic] 35mg By Mouth Every week For SIADH 35mg 2023 Active 2023 66886 87768 5 Every week By Mouth False Lantus Solostar U-100 Insulin 100 unit/mL (3 mL) subcutaneou s pen 18 units Subcutaneous Every morning For DIABETES 18 units 08/25 Inactiv e 2023 01955 77245 0 Every morning Subcut aneous False Lantus Solostar U-100 Insulin 100 unit/mL (3 mL) subcutaneou s pen 18 units Subcutaneous Every morning For DIABETES 18 units 2023 Active 2023 99492 26645 0 Every morning Subcut aneous False Linezolid 600 mg tablet [generic] 600 mg By Mouth Every 12 hours For MRSA INFECTION L BKA 600 mg 08/28 Inactiv e 2023 65048 47442 1 Every 12 hours By Mouth False [...] one-time order For Diabetes 2023 Active 2023 62849 35400 9 4 times a day Subcut aneous False Cefpodoxime 200 mg tablet [generic] 400 mg By Mouth Twice daily For MRSA INFECTION L BKA 400 mg 08/28 Inactiv e 2023 00195 20743 0 Twice daily By Mouth False Brimonidine 0.1 % eye drops [generic] 1 drop Both Eyes Twice daily For glaucoma 1 drop 2023 Active 2023 21110 29595 0 Twice daily Both Eyes False Metoprolol succinate ER 50 mg tablet,exte nded release 24 hr [generic] 50 mg By Mouth Once daily HOLD FOR SBP <100, or pulse <60 For HTN 50 mg 2023 Active 2023 23804 15415 1 Once daily By Mouth False Amlodipine 2.5 mg tablet [generic] 2.5 mg By Mouth Once daily For HTN 2.5 mg 2023 Active 2023 07753 89920 5 Once daily By Mouth False Docusate sodium 100 mg capsule [generic] 100mg By Mouth Twice daily as needed For constipation HOLD FOR LOOSE STOOLS 100mg 2023 Active 2023 17610 39636 1 Twice daily as needed By Mouth False Atorvastati n 40 mg tablet [generic] 40mg By Mouth Once daily For HDL 40mg 08/26 Inactiv e 2023 77397 19173 5 Once daily By Mouth False Tylenol 325 mg tablet 2 tabs By Mouth Every 4 hours as needed For Pain DO NOT EXCEED 3000 MG APAP/24 Hours 2 tabs 2023 Active 2023 73217 51180 0 Every 4 hours as needed By Mouth False Tylenol 325 mg tablet 2 tabs By Mouth Every 4 hours as needed For Fever >100 DO NOT EXCEED 3000 MG APAP/24 Hours 2 tabs 2023 Active 2023 07466 13798 0 Every 4 hours as needed By Mouth False Dulcolax (bisacodyl) 10 mg rectal suppository One Suppository per rectum PRN if Milk of Magnisia ineffective. Give on day 5 of no BM 1 sup 2023 Active 2023 43503 36876 1 Daily as needed Rectal False Fleet Enema 19 gram-7 gram/118 mL Administer per rectum PRN one time if dulcolax suppository not effective. Give on day 6 of no BM 1 2023 Active 2023 16683 04543 6 Daily as needed Rectal False Dextrose 50 % in water (D50W) intravenous solution [generic] Dextrose 50% evonne 20-50 ml (slow push) Intravenous if Glucagon not effective after 15 minutes. CALL 911 for ED Evaluation. 50% evonne 2023 Active 2023 97355 46139 9 Intrav enous False Glucagon (HCl) Emergency Kit 1 mg solution for injection Administer Glucagon 1 mg Intramuscular if 15 minutes after GLucose Gel is administered Glucose remains less than 70 1 mg 2023 Active 2023 97593 61581 2 Intram uscula r False Glucose Gel 40 % oral gel [Dextrose] PRN If resident is unable to swallow (with or without symptoms) and Glucose results less than 70 give GLucose 40% Gel 1 tube orally - Recheck Glucose 15 minutes after administratio n. 1 tube 2023 Active 2023 71374 30651 8 By Mouth False Milk of Magnesia 400 mg/5 mL oral suspension [Magnesium hydroxide] PRN 30ml By Mouth Daily as needed for constipation one time daily if no BM, on day 4 of no BM (PRN refer to instructions) For Constipation 30 mL 2023 Active 2023 09027 11454 6 Daily as needed By Mouth False Atorvastati n 40 mg tablet [generic] 08/26 Inactiv e 2023 38858 17106 5 Atorvastati n 40 mg tablet [generic] 40mg By Mouth Once daily For HDL 40mg 2023 Active 2023 06820 37737 5 Once daily By Mouth False Insulin aspart (U-100) 100 unit/mL (3 mL) subcutaneou s pen [generic] 15 units Subcutaneous 1 time For dm 15 units 08/26 Inactiv e 2023 07466 25553 5 1 time Subcut aneous False Humalog KwikPen (U-100) Insulin 100 unit/mL subcutaneou s 15 units Subcutaneous 1 time For dm 15 units 08/27 Inactiv e 2023 01516 35529 9 1 time Subcut aneous False Linezolid 600 mg tablet [generic] 600 mg By Mouth Every 12 hours For MRSA INFECTION L BKA 600 mg 09/06 Active 2023 20661 35742 1 Every 12 hours By Mouth False Cefpodoxime 200 mg tablet [generic] 400 mg By Mouth Twice daily For MRSA INFECTION L BKA 400 mg 08/31 Active 2023 24885 64869 0 Twice daily By Mouth False MediHoney HCS 4 1/2in X 4 1/2in bandage Cleanse area with NSS, apply one medihoney hydrocolloid dressing, non adherent dressing, kerlix secure with paper tape daily. For wound stage III 1 2023 Active 2023 27708 80014 1 Once daily Topica l False Problems [...] weight Temperature SpO2 Blood Sugar Pulse Respirations 45942 8 67.00 mm[Hg] - Sitting 145.00 mm[Hg] - Sitting 98.50 Forehead Scan 96.00 % 81.00/ min 16.00/min 61796 004 56835 2 67.00 mm[Hg] - Sitting 145.00 mm[Hg] - Sitting 98.50 Tympanic 81.00/ min 16.00/min 89550 004 08280 5 56.00 mm[Hg] - Sitting 142.00 mm[Hg] - Sitting 136.40 NI 100.20 Tympanic 96.00 % 92.00/ min 18.00/min 56925 004 21073 6 004 05805 4 143.00 mg/dL 39113 0 97.80 Tympanic 005 61957 7 60.00 mm[Hg] - Sitting 140.00 mm[Hg] - Sitting 98.00 Tympanic 84.00/ min 18.00/min 75824 005 17529 0 63.00 mm[Hg] - Sitting 141.00 mm[Hg] - Sitting 98.20 Tympanic 92.00 % 63.00/ min 16.00/min 56267 005 08272 8 69.00 mm[Hg] - Sitting 106.00 mm[Hg] - Sitting 97.20 Tympanic 005 76859 7 69.00/ min 16.00/min 89440 005 25849 3 69.00 mm[Hg] - Sitting 106.00 mm[Hg] - Sitting 98.20 Tympanic 69.00/ min 16.00/min 97276 005 91485 1 367.00 mg/dL 39254 005 55487 2 97.20 Tympanic 89079 005 20232 4 97.20 Tympanic 87938 005 96842 0 69.00 mm[Hg] - Sitting 106.00 mm[Hg] - Sitting 69.00/ min 49333 005 19025 3 452.00 mg/dL 71030 005 96571 3 452.00 mg/dL 08145 005 88274 5 352.00 mg/dL 43889 005 16640 3 352.00 mg/dL 20073 005 22238 7 98.20 Tympanic 29880 005 3 101.00 mg/dL 69137 005 8 101.00 mg/dL 90246 006 27271 4 66.00 mm[Hg] - Sitting 107.00 mm[Hg] - Sitting 98.00 Tympanic 66.00/ min 18.00/min 81166 006 55814 0 62.00 mm[Hg] - Sitting 162.00 mm[Hg] - Sitting 98.20 Tympanic 96.00 % 60.00/ min 16.00/min 58466 006 65132 4 62.00 mm[Hg] - Sitting 162.00 mm[Hg] - Sitting 98.00 Tympanic 70.00/ min 18.00/min 30238 006 81558 8 62.00 mm[Hg] - Sitting 162.00 mm[Hg] - Sitting 98.20 Tympanic 70.00/ min 18.00/min 95194 006 65581 2 66.00 mm[Hg] - Sitting 132.00 mm[Hg] - Sitting 98.60 Tympanic 74.00/ min 16.00/min 65233 006 76328 5 159.00 mg/dL 41484 006 78873 1 159.00 mg/dL 19831 006 77327 8 98.00 Tympanic 97851 006 64868 2 62.00 mm[Hg] - Sitting 162.00 mm[Hg] - Sitting 70.00/ min 03523 006 68159 7 264.00 mg/dL 11983 006 18496 7 264.00 mg/dL 96511 006 05781 4 196.00 mg/dL 62424 006 55170 3 98.20 Tympanic 36605 006 50811 6 271.00 mg/dL 24707 007 16411 3 97.20 Tympanic 30347 007 82926 2 63.00 mm[Hg] - Sitting 132.00 mm[Hg] - Sitting 98.50 Tympanic 94.00 % 66.00/ min 16.00/min 20350 007 98975 5 188.00 mg/dL 10451 007 35260 2 188.00 mg/dL 50447 007 77075 2 188.00 mg/dL 79672 007 52265 7 97.20 Tympanic 76041 007 02084 6 97.20 Tympanic 40763 007 28688 5 67.00 mm[Hg] - Sitting 152.00 mm[Hg] - Sitting 68.00/ min 29647 007 32064 0 141.00 mg/dL 23467 007 15773 3 141.00 mg/dL 24803 007 49040 1 366.00 mg/dL 70854 007 39557 7 366.00 mg/dL
--- OUTSIDE RECORDS SUMMARY | 2024-10-03 11:23 | External Medical Summary | Continuity Of Care Document ---
Author Name Unknown Address [address] [address] Organization [facility] () Care Team Providers Care Field Support Rep Name Role Phone DO Machado Amy Primary Care Provider [phone] Allergies Allergy Reaction Start Date End Date [...] Day 3 0.1 mL 08/29 Active 2023 12497 50762 0 1 time Intrad ermal False Tubersol 5 tub. unit/0.1 mL intradermal injection solution [Tuberculin PPD] 0.1mL Intradermal 1 time For PPD 2nd Step Give 2nd Step PPD Day 1 and Read results Day 3 (schedule 7 days after 1st READ) 0.1mL 09/08 Active 2023 60628 05480 0 1 time Intrad ermal False Humalog [...] order For Diabetes 08/25 Inactiv e 2023 67348 32882 9 4 times a day Subcut aneous False Aspirin 325 mg tablet [generic] 325 By Mouth Twice daily For Anticoagulati on 325 09/25 Active 2023 45393 10545 1 Twice daily By Mouth False Ferrous sulfate 325 mg (65 mg iron) tablet [generic] 325 By Mouth Once daily For anemia 325 2023 Active 2023 40147 85167 5 Once daily By Mouth False Linezolid 600 mg tablet [generic] 600 mg By Mouth Every 12 hours For MRSA INFECTION L BKA 600 mg 08/25 Inactiv e 2023 10677 17513 1 Every 12 hours By Mouth False Cefpodoxime 200 mg tablet [generic] 400 mg By Mouth Twice daily For MRSA INFECTION L BKA 400 mg 08/25 Inactiv e 2023 22411 68259 0 Twice daily By Mouth False Coenzyme Q10 100 mg tablet [generic] 100 mg By Mouth Once daily For SUPP 100 mg 2023 Active 2023 73984 21737 0 Once daily By Mouth False Levothyroxi ne 50 mcg tablet [generic] 50mcg By Mouth Once daily For hypothyroidis m 50mcg 2023 Active 2023 41383 15068 0 Once daily By Mouth False One A Day Men Complete 240 mcg-25 mcg-300 mcg tablet 1 tab By Mouth Once daily For supplement 1 tab 2023 Active 2023 93767 98743 1 Once daily By Mouth False Cholecalcif adalberto (vitamin D3) 50 mcg (2,000 unit) tablet [generic] 1 TAB By Mouth Once daily For SUPP 1 TAB 2023 Active 2023 20333 88025 1 Once daily By Mouth False Cetirizine 10 mg tablet [generic] 1 TAB By Mouth At bedtime For Allergies 1 TAB 2023 Active 2023 45861 25895 0 At bedtime By Mouth False Timolol maleate 0.25 % eye drops [generic] 1 drop Both Eyes Twice daily For glaucoma 1 drop 2023 Active 2023 55329 51865 5 Twice daily Both Eyes False Alendronate 35 mg tablet [generic] 35mg By Mouth Every week For SIADH 35mg 2023 Active 2023 86820 49422 5 Every week By Mouth False Lantus Solostar U-100 Insulin 100 unit/mL (3 mL) subcutaneou s pen 18 units Subcutaneous Every morning For DIABETES 18 units 08/25 Inactiv e 2023 02160 63143 0 Every morning Subcut aneous False Lantus Solostar U-100 Insulin 100 unit/mL (3 mL) subcutaneou s pen 18 units Subcutaneous Every morning For DIABETES 18 units 2023 Active 2023 95467 0 Every morning Subcut aneous False Linezolid 600 mg tablet [generic] 600 mg By Mouth Every 12 hours For MRSA INFECTION L BKA 600 mg 2023 Active 2023 23391 48509 1 Every 12 hours By Mouth False [...] one-time order For Diabetes 2023 Active 2023 87750 48789 9 4 times a day Subcut aneous False Cefpodoxime 200 mg tablet [generic] 400 mg By Mouth Twice daily For MRSA INFECTION L BKA 400 mg 2023 Active 2023 10249 57445 0 Twice daily By Mouth False Brimonidine 0.1 % eye drops [generic] 1 drop Both Eyes Twice daily For glaucoma 1 drop 2023 Active 2023 68212 61991 0 Twice daily Both Eyes False Metoprolol succinate ER 50 mg tablet,exte nded release 24 hr [generic] 50 mg By Mouth Once daily HOLD FOR SBP <100, or pulse <60 For HTN 50 mg 2023 Active 2023 09961 84841 1 Once daily By Mouth False Amlodipine 2.5 mg tablet [generic] 2.5 mg By Mouth Once daily For HTN 2.5 mg 2023 Active 2023 83301 57867 5 Once daily By Mouth False Docusate sodium 100 mg capsule [generic] 100mg By Mouth Twice daily as needed For constipation HOLD FOR LOOSE STOOLS 100mg 2023 Active 2023 68228 24410 1 Twice daily as needed By Mouth False Atorvastati n 40 mg tablet [generic] 40mg By Mouth Once daily For HDL 40mg 08/26 Inactiv e 2023 48419 89592 5 Once daily By Mouth False Tylenol 325 mg tablet 2 tabs By Mouth Every 4 hours as needed For Pain DO NOT EXCEED 3000 MG APAP/24 Hours 2 tabs 2023 Active 2023 97865 44052 0 Every 4 hours as needed By Mouth False Tylenol 325 mg tablet 2 tabs By Mouth Every 4 hours as needed For Fever >100 DO NOT EXCEED 3000 MG APAP/24 Hours 2 tabs 2023 Active 2023 92041 82195 0 Every 4 hours as needed By Mouth False Dulcolax (bisacodyl) 10 mg rectal suppository One Suppository per rectum PRN if Milk of Magnisia ineffective. Give on day 5 of no BM 1 sup 2023 Active 2023 90159 01823 1 Daily as needed Rectal False Fleet Enema 19 gram-7 gram/118 mL Administer per rectum PRN one time if dulcolax suppository not effective. Give on day 6 of no BM 1 2023 Active 2023 45692 34101 6 Daily as needed Rectal False Dextrose 50 % in water (D50W) intravenous solution [generic] Dextrose 50% evonne 20-50 ml (slow push) Intravenous if Glucagon not effective after 15 minutes. CALL 911 for ED Evaluation. 50% evonne 2023 Active 2023 71520 51345 9 Intrav enous False Glucagon (HCl) Emergency Kit 1 mg solution for injection Administer Glucagon 1 mg Intramuscular if 15 minutes after GLucose Gel is administered Glucose remains less than 70 1 mg 2023 Active 2023 51335 75279 2 Intram uscula r False Glucose Gel 40 % oral gel [Dextrose] PRN If resident is unable to swallow (with or without symptoms) and Glucose results less than 70 give GLucose 40% Gel 1 tube orally - Recheck Glucose 15 minutes after administratio n. 1 tube 2023 Active 2023 79706 21993 8 By Mouth False Milk of Magnesia 400 mg/5 mL oral suspension [Magnesium hydroxide] PRN 30ml By Mouth Daily as needed for constipation one time daily if no BM, on day 4 of no BM (PRN refer to instructions) For Constipation 30 mL 2023 Active 2023 72786 81584 6 Daily as needed By Mouth False Atorvastati n 40 mg tablet [generic] 08/26 Inactiv e 2023 90138 21474 5 Atorvastati n 40 mg tablet [generic] 40mg By Mouth Once daily For HDL 40mg 2023 Active 2023 50416 85653 5 Once daily By Mouth False Insulin aspart (U-100) 100 unit/mL (3 mL) subcutaneou s pen [generic] 15 units Subcutaneous 1 time For dm 15 units 08/26 Inactiv e 2023 62283 86618 5 1 time Subcut aneous False Humalog KwikPen (U-100) Insulin 100 unit/mL subcutaneou s 15 units Subcutaneous 1 time For dm 15 units 08/27 Inactiv e 2023 13749 60369 9 1 time Subcut aneous False MediHoney HCS 4 1/2in X 4 1/2in bandage Cleanse area with NSS, apply one medihoney hydrocolloid dressing, non adherent dressing, kerlix secure with paper tape daily. For wound stage III 1 2023 0000 /0000 Active 2023 48290 46385 1 Once daily Topica l False VITAL SIGNS Date Time Diastolic blood pressure Systolic blood pressure Body height Body weight Temperature SpO2 Blood Sugar Pulse Respirations 54837 8 67.00 mm[Hg] - Sitting 145.00 mm[Hg] - Sitting 98.50 Forehead Scan 96.00 % 81.00/ min 16.00/min 29208 004 63318 2 67.00 mm[Hg] - Sitting 145.00 mm[Hg] - Sitting 98.50 Tympanic 81.00/ min 16.00/min 45018 004 78225 5 56.00 mm[Hg] - Sitting 142.00 mm[Hg] - Sitting 136.40 NI 100.20 Tympanic 96.00 % 92.00/ min 18.00/min 84093 004 07021 6 40067 004 01164 4 143.00 mg/dL 62050 004 96557 0 97.80 Tympanic 04504 005 91038 7 60.00 mm[Hg] - Sitting 140.00 mm[Hg] - Sitting 98.00 Tympanic 84.00/ min 18.00/min 06937 005 49881 0 63.00 mm[Hg] - Sitting 141.00 mm[Hg] - Sitting 98.20 Tympanic 92.00 % 63.00/ min 16.00/min 33058 005 10912 8 69.00 mm[Hg] - Sitting 106.00 mm[Hg] - Sitting 97.20 Tympanic 05447 005 51128 7 69.00/ min 16.00/min 45324 005 72070 3 69.00 mm[Hg] - Sitting 106.00 mm[Hg] - Sitting 98.20 Tympanic 69.00/ min 16.00/min 58465 005 28388 1 367.00 mg/dL 86939 005 57281 2 97.20 Tympanic 49580 005 30413 4 97.20 Tympanic 52239 005 38331 0 69.00 mm[Hg] - Sitting 106.00 mm[Hg] - Sitting 69.00/ min 96478 005 85802 3 452.00 mg/dL 91204 005 74014 3 452.00 mg/dL 28625 005 41143 5 352.00 mg/dL 15206 005 73386 3 352.00 mg/dL 14836 005 08266 7 98.20 Tympanic 28806 005 3 101.00 mg/dL 89998 005 8 101.00 mg/dL 16709 006 49697 4 66.00 mm[Hg] - Sitting 107.00 mm[Hg] - Sitting 98.00 Tympanic 66.00/ min 18.00/min
--- OUTSIDE RECORDS SUMMARY | 2024-10-03 11:23 | External Medical Summary | Continuity Of Care Document ---
Author Name Unknown Address [address] [address] Organization [facility] () Care Team Providers Care Sofa Back Upholsterer Name Role Phone DO Machado Amy Primary Care Provider [phone] Allergies Allergy Reaction Start Date End Date [...] Day 3 0.1 mL 08/29 Active 2023 46225 43340 0 1 time Intrad ermal False Tubersol 5 tub. unit/0.1 mL intradermal injection solution [Tuberculin PPD] 0.1mL Intradermal 1 time For PPD 2nd Step Give 2nd Step PPD Day 1 and Read results Day 3 (schedule 7 days after 1st READ) 0.1mL 09/08 Active 2023 91873 59873 0 1 time Intrad ermal False Humalog [...] order For Diabetes 08/25 Inactiv e 2023 30052 79035 9 4 times a day Subcut aneous False Aspirin 325 mg tablet [generic] 325 By Mouth Twice daily For Anticoagulati on 325 09/25 Active 2023 01310 36027 1 Twice daily By Mouth False Ferrous sulfate 325 mg (65 mg iron) tablet [generic] 325 By Mouth Once daily For anemia 325 2023 Active 2023 05298 02794 5 Once daily By Mouth False Linezolid 600 mg tablet [generic] 600 mg By Mouth Every 12 hours For MRSA INFECTION L BKA 600 mg 08/25 Inactiv e 2023 29526 75520 1 Every 12 hours By Mouth False Cefpodoxime 200 mg tablet [generic] 400 mg By Mouth Twice daily For MRSA INFECTION L BKA 400 mg 08/25 Inactiv e 2023 14836 93929 0 Twice daily By Mouth False Coenzyme Q10 100 mg tablet [generic] 100 mg By Mouth Once daily For SUPP 100 mg 2023 Active 2023 96034 21056 0 Once daily By Mouth False Levothyroxi ne 50 mcg tablet [generic] 50mcg By Mouth Once daily For hypothyroidis m 50mcg 2023 Active 2023 73231 09339 0 Once daily By Mouth False One A Day Men Complete 240 mcg-25 mcg-300 mcg tablet 1 tab By Mouth Once daily For supplement 1 tab 2023 Active 2023 19827 27324 1 Once daily By Mouth False Cholecalcif adalberto (vitamin D3) 50 mcg (2,000 unit) tablet [generic] 1 TAB By Mouth Once daily For SUPP 1 TAB 2023 Active 2023 32661 48218 1 Once daily By Mouth False Cetirizine 10 mg tablet [generic] 1 TAB By Mouth At bedtime For Allergies 1 TAB 2023 Active 2023 60157 87840 0 At bedtime By Mouth False Timolol maleate 0.25 % eye drops [generic] 1 drop Both Eyes Twice daily For glaucoma 1 drop 2023 Active 2023 55917 55143 5 Twice daily Both Eyes False Alendronate 35 mg tablet [generic] 35mg By Mouth Every week For SIADH 35mg 2023 Active 2023 16908 68135 5 Every week By Mouth False Lantus Solostar U-100 Insulin 100 unit/mL (3 mL) subcutaneou s pen 18 units Subcutaneous Every morning For DIABETES 18 units 08/25 Inactiv e 2023 41477 83443 0 Every morning Subcut aneous False Lantus Solostar U-100 Insulin 100 unit/mL (3 mL) subcutaneou s pen 18 units Subcutaneous Every morning For DIABETES 18 units 2023 Active 2023 19035 0 Every morning Subcut aneous False Linezolid 600 mg tablet [generic] 600 mg By Mouth Every 12 hours For MRSA INFECTION L BKA 600 mg 2023 Active 2023 19837 54307 1 Every 12 hours By Mouth False [...] one-time order For Diabetes 2023 Active 2023 79415 37610 9 4 times a day Subcut aneous False Cefpodoxime 200 mg tablet [generic] 400 mg By Mouth Twice daily For MRSA INFECTION L BKA 400 mg 2023 Active 2023 79887 47508 0 Twice daily By Mouth False Brimonidine 0.1 % eye drops [generic] 1 drop Both Eyes Twice daily For glaucoma 1 drop 2023 Active 2023 27791 73874 0 Twice daily Both Eyes False Metoprolol succinate ER 50 mg tablet,exte nded release 24 hr [generic] 50 mg By Mouth Once daily HOLD FOR SBP <100, or pulse <60 For HTN 50 mg 2023 Active 2023 70045 09310 1 Once daily By Mouth False Amlodipine 2.5 mg tablet [generic] 2.5 mg By Mouth Once daily For HTN 2.5 mg 2023 Active 2023 35977 99091 5 Once daily By Mouth False Docusate sodium 100 mg capsule [generic] 100mg By Mouth Twice daily as needed For constipation HOLD FOR LOOSE STOOLS 100mg 2023 Active 2023 52883 93382 1 Twice daily as needed By Mouth False Atorvastati n 40 mg tablet [generic] 40mg By Mouth Once daily For HDL 40mg 08/26 Inactiv e 2023 62771 89790 5 Once daily By Mouth False Tylenol 325 mg tablet 2 tabs By Mouth Every 4 hours as needed For Pain DO NOT EXCEED 3000 MG APAP/24 Hours 2 tabs 2023 Active 2023 34924 09249 0 Every 4 hours as needed By Mouth False Tylenol 325 mg tablet 2 tabs By Mouth Every 4 hours as needed For Fever >100 DO NOT EXCEED 3000 MG APAP/24 Hours 2 tabs 2023 Active 2023 46198 30396 0 Every 4 hours as needed By Mouth False Dulcolax (bisacodyl) 10 mg rectal suppository One Suppository per rectum PRN if Milk of Magnisia ineffective. Give on day 5 of no BM 1 sup 2023 Active 2023 32802 02910 1 Daily as needed Rectal False Fleet Enema 19 gram-7 gram/118 mL Administer per rectum PRN one time if dulcolax suppository not effective. Give on day 6 of no BM 1 2023 Active 2023 38035 76420 6 Daily as needed Rectal False Dextrose 50 % in water (D50W) intravenous solution [generic] Dextrose 50% evonne 20-50 ml (slow push) Intravenous if Glucagon not effective after 15 minutes. CALL 911 for ED Evaluation. 50% evonne 2023 Active 2023 70980 76627 9 Intrav enous False Glucagon (HCl) Emergency Kit 1 mg solution for injection Administer Glucagon 1 mg Intramuscular if 15 minutes after GLucose Gel is administered Glucose remains less than 70 1 mg 2023 Active 2023 88301 70742 2 Intram uscula r False Glucose Gel 40 % oral gel [Dextrose] PRN If resident is unable to swallow (with or without symptoms) and Glucose results less than 70 give GLucose 40% Gel 1 tube orally - Recheck Glucose 15 minutes after administratio n. 1 tube 2023 Active 2023 36243 04705 8 By Mouth False Milk of Magnesia 400 mg/5 mL oral suspension [Magnesium hydroxide] PRN 30ml By Mouth Daily as needed for constipation one time daily if no BM, on day 4 of no BM (PRN refer to instructions) For Constipation 30 mL 2023 Active 2023 12015 37415 6 Daily as needed By Mouth False Atorvastati n 40 mg tablet [generic] 08/26 Inactiv e 2023 36092 30621 5 Atorvastati n 40 mg tablet [generic] 40mg By Mouth Once daily For HDL 40mg 2023 Active 2023 56863 40005 5 Once daily By Mouth False Insulin aspart (U-100) 100 unit/mL (3 mL) subcutaneou s pen [generic] 15 units Subcutaneous 1 time For dm 15 units 08/26 Inactiv e 2023 54734 40394 5 1 time Subcut aneous False Humalog KwikPen (U-100) Insulin 100 unit/mL subcutaneou s 15 units Subcutaneous 1 time For dm 15 units 08/27 Active 2023 05018 05999 9 1 time Subcut aneous False MediHoney HCS 4 1/2in X 4 1/2in bandage Cleanse area with NSS, apply one medihoney hydrocolloid dressing, non adherent dressing, kerlix secure with paper tape daily. For wound stage III 1 2023 0000 /0000 Active 2023 78929 24944 1 Once daily Topica l False VITAL SIGNS Date Time Diastolic blood pressure Systolic blood pressure Body height Body weight Temperature SpO2 Blood Sugar Pulse Respirations 004 07147 8 67.00 mm[Hg] - Sitting 145.00 mm[Hg] - Sitting 98.50 Forehead Scan 96.00 % 81.00/ min 16.00/min 19396 004 58207 2 67.00 mm[Hg] - Sitting 145.00 mm[Hg] - Sitting 98.50 Tympanic 81.00/ min 16.00/min 94351 004 98251 5 56.00 mm[Hg] - Sitting 142.00 mm[Hg] - Sitting 136.40 NI 100.20 Tympanic 96.00 % 92.00/ min 18.00/min 91680 004 32853 6 80844 004 04549 4 143.00 mg/dL 21078 004 78765 0 97.80 Tympanic 02237 005 66079 7 60.00 mm[Hg] - Sitting 140.00 mm[Hg] - Sitting 98.00 Tympanic 84.00/ min 18.00/min 76091 005 92358 0 63.00 mm[Hg] - Sitting 141.00 mm[Hg] - Sitting 98.20 Tympanic 92.00 % 63.00/ min 16.00/min 04423 005 73025 8 69.00 mm[Hg] - Sitting 106.00 mm[Hg] - Sitting 97.20 Tympanic 76016 005 43147 7 69.00/ min 16.00/min 44499 005 58400 1 367.00 mg/dL 25318 005 39216 2 97.20 Tympanic 93702 005 88440 4 97.20 Tympanic 61757 005 67453 0 69.00 mm[Hg] - Sitting 106.00 mm[Hg] - Sitting 69.00/ min 13735 005 15782 3 452.00 mg/dL 79222 005 30025 3 452.00 mg/dL 98891 005 40370 5 352.00 mg/dL 91075 005 94894 3 352.00 mg/dL 80780 005 94149 7 98.20 Tympanic 005 3 101.00 mg/dL 8 101.00 mg/dL
--- OUTSIDE RECORDS SUMMARY | 2024-10-03 11:23 | External Medical Summary | Continuity Of Care Document ---
Author Name Unknown Address [address] [address] Organization [facility] () Care Team Providers Care Rugby [employer] Footballer Name Role Phone DO Machado Amy Primary Care Provider [phone] Allergies Allergy Reaction Start Date End Date [...] Day 3 0.1 mL 08/29 Active 2023 55628 16072 0 1 time Intrad ermal False Tubersol 5 tub. unit/0.1 mL intradermal injection solution [Tuberculin PPD] 0.1mL Intradermal 1 time For PPD 2nd Step Give 2nd Step PPD Day 1 and Read results Day 3 (schedule 7 days after 1st READ) 0.1mL 09/08 Active 2023 43648 98582 0 1 time Intrad ermal False Humalog [...] order For Diabetes 08/25 Inactiv e 2023 01585 26900 9 4 times a day Subcut aneous False Aspirin 325 mg tablet [generic] 325 By Mouth Twice daily For Anticoagulati on 325 09/25 Active 2023 70351 28862 1 Twice daily By Mouth False Ferrous sulfate 325 mg (65 mg iron) tablet [generic] 325 By Mouth Once daily For anemia 325 2023 Active 2023 54176 08938 5 Once daily By Mouth False Linezolid 600 mg tablet [generic] 600 mg By Mouth Every 12 hours For MRSA INFECTION L BKA 600 mg 08/25 Inactiv e 2023 80500 64833 1 Every 12 hours By Mouth False Cefpodoxime 200 mg tablet [generic] 400 mg By Mouth Twice daily For MRSA INFECTION L BKA 400 mg 08/25 Inactiv e 2023 27392 51410 0 Twice daily By Mouth False Coenzyme Q10 100 mg tablet [generic] 100 mg By Mouth Once daily For SUPP 100 mg 2023 Active 2023 31673 30430 0 Once daily By Mouth False Levothyroxi ne 50 mcg tablet [generic] 50mcg By Mouth Once daily For hypothyroidis m 50mcg 2023 Active 2023 75371 85516 0 Once daily By Mouth False One A Day Men Complete 240 mcg-25 mcg-300 mcg tablet 1 tab By Mouth Once daily For supplement 1 tab 2023 Active 2023 61535 60657 1 Once daily By Mouth False Cholecalcif adalberto (vitamin D3) 50 mcg (2,000 unit) tablet [generic] 1 TAB By Mouth Once daily For SUPP 1 TAB 2023 Active 2023 19824 73272 1 Once daily By Mouth False Cetirizine 10 mg tablet [generic] 1 TAB By Mouth At bedtime For Allergies 1 TAB 2023 Active 2023 65265 46340 0 At bedtime By Mouth False Timolol maleate 0.25 % eye drops [generic] 1 drop Both Eyes Twice daily For glaucoma 1 drop 2023 Active 2023 22737 62581 5 Twice daily Both Eyes False Alendronate 35 mg tablet [generic] 35mg By Mouth Every week For SIADH 35mg 2023 Active 2023 37031 05481 5 Every week By Mouth False Lantus Solostar U-100 Insulin 100 unit/mL (3 mL) subcutaneou s pen 18 units Subcutaneous Every morning For DIABETES 18 units 08/25 Inactiv e 2023 57639 19817 0 Every morning Subcut aneous False Lantus Solostar U-100 Insulin 100 unit/mL (3 mL) subcutaneou s pen 18 units Subcutaneous Every morning For DIABETES 18 units 2023 Active 2023 99746 0 Every morning Subcut aneous False Linezolid 600 mg tablet [generic] 600 mg By Mouth Every 12 hours For MRSA INFECTION L BKA 600 mg 2023 Active 2023 84880 26717 1 Every 12 hours By Mouth False [...] one-time order For Diabetes 2023 Active 2023 25745 12765 9 4 times a day Subcut aneous False Cefpodoxime 200 mg tablet [generic] 400 mg By Mouth Twice daily For MRSA INFECTION L BKA 400 mg 2023 Active 2023 07539 62357 0 Twice daily By Mouth False Brimonidine 0.1 % eye drops [generic] 1 drop Both Eyes Twice daily For glaucoma 1 drop 2023 Active 2023 81005 30826 0 Twice daily Both Eyes False Metoprolol succinate ER 50 mg tablet,exte nded release 24 hr [generic] 50 mg By Mouth Once daily HOLD FOR SBP <100, or pulse <60 For HTN 50 mg 2023 Active 2023 77760 59829 1 Once daily By Mouth False Amlodipine 2.5 mg tablet [generic] 2.5 mg By Mouth Once daily For HTN 2.5 mg 2023 Active 2023 97503 89310 5 Once daily By Mouth False Docusate sodium 100 mg capsule [generic] 100mg By Mouth Twice daily as needed For constipation HOLD FOR LOOSE STOOLS 100mg 2023 Active 2023 14384 83012 1 Twice daily as needed By Mouth False Atorvastati n 40 mg tablet [generic] 40mg By Mouth Once daily For HDL 40mg 08/26 Inactiv e 2023 14442 82801 5 Once daily By Mouth False Tylenol 325 mg tablet 2 tabs By Mouth Every 4 hours as needed For Pain DO NOT EXCEED 3000 MG APAP/24 Hours 2 tabs 2023 Active 2023 04128 51721 0 Every 4 hours as needed By Mouth False Tylenol 325 mg tablet 2 tabs By Mouth Every 4 hours as needed For Fever >100 DO NOT EXCEED 3000 MG APAP/24 Hours 2 tabs 2023 Active 2023 72033 17579 0 Every 4 hours as needed By Mouth False Dulcolax (bisacodyl) 10 mg rectal suppository One Suppository per rectum PRN if Milk of Magnisia ineffective. Give on day 5 of no BM 1 sup 2023 Active 2023 56001 68167 1 Daily as needed Rectal False Fleet Enema 19 gram-7 gram/118 mL Administer per rectum PRN one time if dulcolax suppository not effective. Give on day 6 of no BM 1 2023 Active 2023 58620 28384 6 Daily as needed Rectal False Dextrose 50 % in water (D50W) intravenous solution [generic] Dextrose 50% evonne 20-50 ml (slow push) Intravenous if Glucagon not effective after 15 minutes. CALL 911 for ED Evaluation. 50% evonne 2023 Active 2023 58097 43638 9 Intrav enous False Glucagon (HCl) Emergency Kit 1 mg solution for injection Administer Glucagon 1 mg Intramuscular if 15 minutes after GLucose Gel is administered Glucose remains less than 70 1 mg 2023 Active 2023 78892 72689 2 Intram uscula r False Glucose Gel 40 % oral gel [Dextrose] PRN If resident is unable to swallow (with or without symptoms) and Glucose results less than 70 give GLucose 40% Gel 1 tube orally - Recheck Glucose 15 minutes after administratio n. 1 tube 2023 Active 2023 65472 84612 8 By Mouth False Milk of Magnesia 400 mg/5 mL oral suspension [Magnesium hydroxide] PRN 30ml By Mouth Daily as needed for constipation one time daily if no BM, on day 4 of no BM (PRN refer to instructions) For Constipation 30 mL 2023 Active 2023 55265 73748 6 Daily as needed By Mouth False Atorvastati n 40 mg tablet [generic] 08/26 Inactiv e 2023 19460 19230 5 Atorvastati n 40 mg tablet [generic] 40mg By Mouth Once daily For HDL 40mg 2023 Active 2023 48262 74732 5 Once daily By Mouth False Insulin aspart (U-100) 100 unit/mL (3 mL) subcutaneou s pen [generic] 15 units Subcutaneous 1 time For dm 15 units 08/26 Inactiv e 2023 88923 01283 5 1 time Subcut aneous False Humalog KwikPen (U-100) Insulin 100 unit/mL subcutaneou s 15 units Subcutaneous 1 time For dm 15 units 08/27 Inactiv e 2023 15825 73800 9 1 time Subcut aneous False MediHoney HCS 4 1/2in X 4 1/2in bandage Cleanse area with NSS, apply one medihoney hydrocolloid dressing, non adherent dressing, kerlix secure with paper tape daily. For wound stage III 1 2023 0000 /0000 Active 2023 66270 98532 1 Once daily Topica l False VITAL SIGNS Date Time Diastolic blood pressure Systolic blood pressure Body height Body weight Temperature SpO2 Blood Sugar Pulse Respirations 70764 8 67.00 mm[Hg] - Sitting 145.00 mm[Hg] - Sitting 98.50 Forehead Scan 96.00 % 81.00/ min 16.00/min 45072 004 30018 2 67.00 mm[Hg] - Sitting 145.00 mm[Hg] - Sitting 98.50 Tympanic 81.00/ min 16.00/min 81934 004 43366 5 56.00 mm[Hg] - Sitting 142.00 mm[Hg] - Sitting 136.40 NI 100.20 Tympanic 96.00 % 92.00/ min 18.00/min 18893 004 29738 6 24446 004 74183 4 143.00 mg/dL 88063 004 28859 0 97.80 Tympanic 58887 005 18715 7 60.00 mm[Hg] - Sitting 140.00 mm[Hg] - Sitting 98.00 Tympanic 84.00/ min 18.00/min 82198 005 60993 0 63.00 mm[Hg] - Sitting 141.00 mm[Hg] - Sitting 98.20 Tympanic 92.00 % 63.00/ min 16.00/min 23375 005 60370 8 69.00 mm[Hg] - Sitting 106.00 mm[Hg] - Sitting 97.20 Tympanic 90503 005 35680 7 69.00/ min 16.00/min 61427 005 48328 3 69.00 mm[Hg] - Sitting 106.00 mm[Hg] - Sitting 98.20 Tympanic 69.00/ min 16.00/min 79430 005 76890 1 367.00 mg/dL 70131 005 61389 2 97.20 Tympanic 86817 005 87501 4 97.20 Tympanic 91644 005 60421 0 69.00 mm[Hg] - Sitting 106.00 mm[Hg] - Sitting 69.00/ min 52226 005 56070 3 452.00 mg/dL 27989 005 18388 3 452.00 mg/dL 85300 005 50780 5 352.00 mg/dL 28306 005 17077 3 352.00 mg/dL 17003 005 65793 7 98.20 Tympanic 88532 005 3 101.00 mg/dL 49241 005 8 101.00 mg/dL 57587 006 51944 4 66.00 mm[Hg] - Sitting 107.00 mm[Hg] - Sitting 98.00 Tympanic 66.00/ min 18.00/min 91198 006 29473 0 62.00 mm[Hg] - Sitting 162.00 mm[Hg] - Sitting 98.20 Tympanic 96.00 % 60.00/ min 16.00/min 53129 006 84811 4 62.00 mm[Hg] - Sitting 162.00 mm[Hg] - Sitting 98.00 Tympanic 70.00/ min 18.00/min 07302 006 07480 8 62.00 mm[Hg] - Sitting 162.00 mm[Hg] - Sitting 98.20 Tympanic 70.00/ min 18.00/min 63498 006 39510 2 66.00 mm[Hg] - Sitting 132.00 mm[Hg] - Sitting 98.60 Tympanic 74.00/ min 16.00/min 72847 006 55675 5 159.00 mg/dL 61548 006 12759 1 159.00 mg/dL 96990 006 49610 8 98.00 Tympanic 27517 006 62324 2 62.00 mm[Hg] - Sitting 162.00 mm[Hg] - Sitting 70.00/ min 27694 006 90582 7 264.00 mg/dL 18611 006 28753 7 264.00 mg/dL 17642 006 89727 4 196.00 mg/dL 22125 006 15705 3 98.20 Tympanic 67870 006 29569 6 271.00 mg/dL
--- OUTSIDE RECORDS SUMMARY | 2024-10-03 11:23 | External Medical Summary | Continuity Of Care Document ---
Author Name Unknown Address [address] [address] Organization [facility] () Care Team Providers Care Merchandise Carrier Name Role Phone DO Machado Amy Primary Care Provider [phone] Allergies Allergy Reaction Start Date End Date [...] Day 3 0.1 mL 08/29 Active 2023 50082 19664 0 1 time Intrad ermal False Tubersol 5 tub. unit/0.1 mL intradermal injection solution [Tuberculin PPD] 0.1mL Intradermal 1 time For PPD 2nd Step Give 2nd Step PPD Day 1 and Read results Day 3 (schedule 7 days after 1st READ) 0.1mL 09/08 Active 2023 73589 11380 0 1 time Intrad ermal False Humalog [...] order For Diabetes 08/25 Inactiv e 2023 35807 21656 9 4 times a day Subcut aneous False Aspirin 325 mg tablet [generic] 325 By Mouth Twice daily For Anticoagulati on 325 09/25 Active 2023 38800 52489 1 Twice daily By Mouth False Ferrous sulfate 325 mg (65 mg iron) tablet [generic] 325 By Mouth Once daily For anemia 325 2023 Active 2023 36432 31774 5 Once daily By Mouth False Linezolid 600 mg tablet [generic] 600 mg By Mouth Every 12 hours For MRSA INFECTION L BKA 600 mg 08/25 Inactiv e 2023 88966 36124 1 Every 12 hours By Mouth False Cefpodoxime 200 mg tablet [generic] 400 mg By Mouth Twice daily For MRSA INFECTION L BKA 400 mg 08/25 Inactiv e 2023 10159 95537 0 Twice daily By Mouth False Coenzyme Q10 100 mg tablet [generic] 100 mg By Mouth Once daily For SUPP 100 mg 2023 Active 2023 94574 04360 0 Once daily By Mouth False Levothyroxi ne 50 mcg tablet [generic] 50mcg By Mouth Once daily For hypothyroidis m 50mcg 2023 Active 2023 46702 47396 0 Once daily By Mouth False One A Day Men Complete 240 mcg-25 mcg-300 mcg tablet 1 tab By Mouth Once daily For supplement 1 tab 2023 Active 2023 60580 00052 1 Once daily By Mouth False Cholecalcif adalberto (vitamin D3) 50 mcg (2,000 unit) tablet [generic] 1 TAB By Mouth Once daily For SUPP 1 TAB 2023 Active 2023 03408 73581 1 Once daily By Mouth False Cetirizine 10 mg tablet [generic] 1 TAB By Mouth At bedtime For Allergies 1 TAB 2023 Active 2023 60833 05064 0 At bedtime By Mouth False Timolol maleate 0.25 % eye drops [generic] 1 drop Both Eyes Twice daily For glaucoma 1 drop 2023 Active 2023 72817 32679 5 Twice daily Both Eyes False Alendronate 35 mg tablet [generic] 35mg By Mouth Every week For SIADH 35mg 2023 Active 2023 13388 49965 5 Every week By Mouth False Lantus Solostar U-100 Insulin 100 unit/mL (3 mL) subcutaneou s pen 18 units Subcutaneous Every morning For DIABETES 18 units 08/25 Inactiv e 2023 28809 00576 0 Every morning Subcut aneous False Lantus Solostar U-100 Insulin 100 unit/mL (3 mL) subcutaneou s pen 18 units Subcutaneous Every morning For DIABETES 18 units 2023 Active 2023 12841 0 Every morning Subcut aneous False Linezolid 600 mg tablet [generic] 600 mg By Mouth Every 12 hours For MRSA INFECTION L BKA 600 mg 2023 Active 2023 08081 47374 1 Every 12 hours By Mouth False [...] one-time order For Diabetes 2023 Active 2023 20524 99511 9 4 times a day Subcut aneous False Cefpodoxime 200 mg tablet [generic] 400 mg By Mouth Twice daily For MRSA INFECTION L BKA 400 mg 2023 Active 2023 44969 92279 0 Twice daily By Mouth False Brimonidine 0.1 % eye drops [generic] 1 drop Both Eyes Twice daily For glaucoma 1 drop 2023 Active 2023 97106 57135 0 Twice daily Both Eyes False Metoprolol succinate ER 50 mg tablet,exte nded release 24 hr [generic] 50 mg By Mouth Once daily HOLD FOR SBP <100, or pulse <60 For HTN 50 mg 2023 Active 2023 83696 84573 1 Once daily By Mouth False Amlodipine 2.5 mg tablet [generic] 2.5 mg By Mouth Once daily For HTN 2.5 mg 2023 Active 2023 26328 95615 5 Once daily By Mouth False Docusate sodium 100 mg capsule [generic] 100mg By Mouth Twice daily as needed For constipation HOLD FOR LOOSE STOOLS 100mg 2023 Active 2023 75023 31614 1 Twice daily as needed By Mouth False Atorvastati n 40 mg tablet [generic] 40mg By Mouth Once daily For HDL 40mg 08/26 Inactiv e 2023 44984 69017 5 Once daily By Mouth False Tylenol 325 mg tablet 2 tabs By Mouth Every 4 hours as needed For Pain DO NOT EXCEED 3000 MG APAP/24 Hours 2 tabs 2023 Active 2023 92141 08137 0 Every 4 hours as needed By Mouth False Tylenol 325 mg tablet 2 tabs By Mouth Every 4 hours as needed For Fever >100 DO NOT EXCEED 3000 MG APAP/24 Hours 2 tabs 2023 Active 2023 12377 80348 0 Every 4 hours as needed By Mouth False Dulcolax (bisacodyl) 10 mg rectal suppository One Suppository per rectum PRN if Milk of Magnisia ineffective. Give on day 5 of no BM 1 sup 2023 Active 2023 64741 29317 1 Daily as needed Rectal False Fleet Enema 19 gram-7 gram/118 mL Administer per rectum PRN one time if dulcolax suppository not effective. Give on day 6 of no BM 1 2023 Active 2023 98376 25674 6 Daily as needed Rectal False Dextrose 50 % in water (D50W) intravenous solution [generic] Dextrose 50% evonne 20-50 ml (slow push) Intravenous if Glucagon not effective after 15 minutes. CALL 911 for ED Evaluation. 50% evonne 2023 Active 2023 61780 01111 9 Intrav enous False Glucagon (HCl) Emergency Kit 1 mg solution for injection Administer Glucagon 1 mg Intramuscular if 15 minutes after GLucose Gel is administered Glucose remains less than 70 1 mg 2023 Active 2023 26338 70004 2 Intram uscula r False Glucose Gel 40 % oral gel [Dextrose] PRN If resident is unable to swallow (with or without symptoms) and Glucose results less than 70 give GLucose 40% Gel 1 tube orally - Recheck Glucose 15 minutes after administratio n. 1 tube 2023 Active 2023 29087 78840 8 By Mouth False Milk of Magnesia 400 mg/5 mL oral suspension [Magnesium hydroxide] PRN 30ml By Mouth Daily as needed for constipation one time daily if no BM, on day 4 of no BM (PRN refer to instructions) For Constipation 30 mL 2023 Active 2023 69795 97076 6 Daily as needed By Mouth False Atorvastati n 40 mg tablet [generic] 08/26 Inactiv e 2023 44517 13181 5 Atorvastati n 40 mg tablet [generic] 40mg By Mouth Once daily For HDL 40mg 2023 Active 2023 41871 96689 5 Once daily By Mouth False VITAL SIGNS Date Time Diastolic blood pressure Systolic blood pressure Body height Body weight Temperature SpO2 Blood Sugar Pulse Respirations 62 8 67.00 mm[Hg] - Sitting 145.00 mm[Hg] - Sitting 98.50 Forehead Scan 96.00 % 81.00/ min 16.00/min 03957 2 67.00 mm[Hg] - Sitting 145.00 mm[Hg] - Sitting 98.50 Tympanic 81.00/ min 16.00/min 23 5 56.00 mm[Hg] - Sitting 142.00 mm[Hg] - Sitting 136.40 NI 100.20 Tympanic 96.00 % 92.00/ min 18.00/min 30982 004 72431 6 32921 004 80933 4 143.00 mg/dL 004 48397 0 97.80 Tympanic 28410 005 93810 7 60.00 mm[Hg] - Sitting 140.00 mm[Hg] - Sitting 98.00 Tympanic 84.00/ min 18.00/min 83184 005 31157 0 63.00 mm[Hg] - Sitting 141.00 mm[Hg] - Sitting 98.20 Tympanic 92.00 % 63.00/ min 16.00/min 73008 005 54561 1 367.00 mg/dL 82279 005 70086 2 97.20 Tympanic 45823 005 84737 4 97.20 Tympanic 91426 005 07065 0 69.00 mm[Hg] - Sitting 106.00 mm[Hg] - Sitting 69.00/ min
--- OUTSIDE RECORDS SUMMARY | 2024-10-03 11:23 | External Medical Summary | Continuity Of Care Document ---
Author Name Unknown Address [address] [address] Organization [facility] () Care Team Providers Care Machinery Mover Name Role Phone DO Machado Amy Primary Care Provider [phone] Allergies Allergy Reaction Start Date End Date [...] Day 3 0.1 mL 08/29 Active 2023 14447 55243 0 1 time Intrad ermal False Tubersol 5 tub. unit/0.1 mL intradermal injection solution [Tuberculin PPD] 0.1mL Intradermal 1 time For PPD 2nd Step Give 2nd Step PPD Day 1 and Read results Day 3 (schedule 7 days after 1st READ) 0.1mL 09/08 Active 2023 59088 23851 0 1 time Intrad ermal False Humalog [...] order For Diabetes 08/25 Inactiv e 2023 79648 31885 9 4 times a day Subcut aneous False Aspirin 325 mg tablet [generic] 325 By Mouth Twice daily For Anticoagulati on 325 09/25 Active 2023 35157 45986 1 Twice daily By Mouth False Ferrous sulfate 325 mg (65 mg iron) tablet [generic] 325 By Mouth Once daily For anemia 325 2023 Active 2023 52604 96412 5 Once daily By Mouth False Linezolid 600 mg tablet [generic] 600 mg By Mouth Every 12 hours For MRSA INFECTION L BKA 600 mg 08/25 Inactiv e 2023 83673 50204 1 Every 12 hours By Mouth False Cefpodoxime 200 mg tablet [generic] 400 mg By Mouth Twice daily For MRSA INFECTION L BKA 400 mg 08/25 Inactiv e 2023 11534 56655 0 Twice daily By Mouth False Coenzyme Q10 100 mg tablet [generic] 100 mg By Mouth Once daily For SUPP 100 mg 2023 Active 2023 25198 47502 0 Once daily By Mouth False Levothyroxi ne 50 mcg tablet [generic] 50mcg By Mouth Once daily For hypothyroidis m 50mcg 2023 Active 2023 49140 61263 0 Once daily By Mouth False One A Day Men Complete 240 mcg-25 mcg-300 mcg tablet 1 tab By Mouth Once daily For supplement 1 tab 2023 Active 2023 85381 12816 1 Once daily By Mouth False Cholecalcif adalberto (vitamin D3) 50 mcg (2,000 unit) tablet [generic] 1 TAB By Mouth Once daily For SUPP 1 TAB 2023 Active 2023 81006 51054 1 Once daily By Mouth False Cetirizine 10 mg tablet [generic] 1 TAB By Mouth At bedtime For Allergies 1 TAB 2023 Active 2023 12107 18509 0 At bedtime By Mouth False Timolol maleate 0.25 % eye drops [generic] 1 drop Both Eyes Twice daily For glaucoma 1 drop 2023 Active 2023 49308 79800 5 Twice daily Both Eyes False Alendronate 35 mg tablet [generic] 35mg By Mouth Every week For SIADH 35mg 2023 Active 2023 57011 41675 5 Every week By Mouth False Lantus Solostar U-100 Insulin 100 unit/mL (3 mL) subcutaneou s pen 18 units Subcutaneous Every morning For DIABETES 18 units 08/25 Inactiv e 2023 08156 44315 0 Every morning Subcut aneous False Lantus Solostar U-100 Insulin 100 unit/mL (3 mL) subcutaneou s pen 18 units Subcutaneous Every morning For DIABETES 18 units 2023 Active 2023 82196 0 Every morning Subcut aneous False Linezolid 600 mg tablet [generic] 600 mg By Mouth Every 12 hours For MRSA INFECTION L BKA 600 mg 2023 Active 2023 15308 43468 1 Every 12 hours By Mouth False [...] one-time order For Diabetes 2023 Active 2023 92127 11687 9 4 times a day Subcut aneous False Cefpodoxime 200 mg tablet [generic] 400 mg By Mouth Twice daily For MRSA INFECTION L BKA 400 mg 2023 Active 2023 03607 42414 0 Twice daily By Mouth False Brimonidine 0.1 % eye drops [generic] 1 drop Both Eyes Twice daily For glaucoma 1 drop 2023 Active 2023 42178 82017 0 Twice daily Both Eyes False Metoprolol succinate ER 50 mg tablet,exte nded release 24 hr [generic] 50 mg By Mouth Once daily HOLD FOR SBP <100, or pulse <60 For HTN 50 mg 2023 Active 2023 54391 30604 1 Once daily By Mouth False Amlodipine 2.5 mg tablet [generic] 2.5 mg By Mouth Once daily For HTN 2.5 mg 2023 Active 2023 21241 26897 5 Once daily By Mouth False Docusate sodium 100 mg capsule [generic] 100mg By Mouth Twice daily as needed For constipation HOLD FOR LOOSE STOOLS 100mg 2023 Active 2023 22842 26335 1 Twice daily as needed By Mouth False Atorvastati n 40 mg tablet [generic] 40mg By Mouth Once daily For HDL 40mg 08/26 Inactiv e 2023 34342 58402 5 Once daily By Mouth False Tylenol 325 mg tablet 2 tabs By Mouth Every 4 hours as needed For Pain DO NOT EXCEED 3000 MG APAP/24 Hours 2 tabs 2023 Active 2023 11051 39347 0 Every 4 hours as needed By Mouth False Tylenol 325 mg tablet 2 tabs By Mouth Every 4 hours as needed For Fever >100 DO NOT EXCEED 3000 MG APAP/24 Hours 2 tabs 2023 Active 2023 81842 71514 0 Every 4 hours as needed By Mouth False Dulcolax (bisacodyl) 10 mg rectal suppository One Suppository per rectum PRN if Milk of Magnisia ineffective. Give on day 5 of no BM 1 sup 2023 Active 2023 54855 22928 1 Daily as needed Rectal False Fleet Enema 19 gram-7 gram/118 mL Administer per rectum PRN one time if dulcolax suppository not effective. Give on day 6 of no BM 1 2023 Active 2023 86574 58393 6 Daily as needed Rectal False Dextrose 50 % in water (D50W) intravenous solution [generic] Dextrose 50% evonne 20-50 ml (slow push) Intravenous if Glucagon not effective after 15 minutes. CALL 911 for ED Evaluation. 50% evonne 2023 Active 2023 71583 06260 9 Intrav enous False Glucagon (HCl) Emergency Kit 1 mg solution for injection Administer Glucagon 1 mg Intramuscular if 15 minutes after GLucose Gel is administered Glucose remains less than 70 1 mg 2023 Active 2023 07211 00699 2 Intram uscula r False Glucose Gel 40 % oral gel [Dextrose] PRN If resident is unable to swallow (with or without symptoms) and Glucose results less than 70 give GLucose 40% Gel 1 tube orally - Recheck Glucose 15 minutes after administratio n. 1 tube 2023 Active 2023 35776 26501 8 By Mouth False Milk of Magnesia 400 mg/5 mL oral suspension [Magnesium hydroxide] PRN 30ml By Mouth Daily as needed for constipation one time daily if no BM, on day 4 of no BM (PRN refer to instructions) For Constipation 30 mL 2023 Active 2023 52951 30325 6 Daily as needed By Mouth False Atorvastati n 40 mg tablet [generic] 08/26 Inactiv e 2023 92593 39901 5 Atorvastati n 40 mg tablet [generic] 40mg By Mouth Once daily For HDL 40mg 2023 Active 2023 25387 63149 5 Once daily By Mouth False Insulin aspart (U-100) 100 unit/mL (3 mL) subcutaneou s pen [generic] 15 units Subcutaneous 1 time For dm 15 units 08/26 Inactiv e 2023 78336 36193 5 1 time Subcut aneous False Humalog KwikPen (U-100) Insulin 100 unit/mL subcutaneou s 15 units Subcutaneous 1 time For dm 15 units 08/27 Inactiv e 2023 14766 68177 9 1 time Subcut aneous False MediHoney HCS 4 1/2in X 4 1/2in bandage Cleanse area with NSS, apply one medihoney hydrocolloid dressing, non adherent dressing, kerlix secure with paper tape daily. For wound stage III 1 2023 0000 /0000 Active 2023 27807 65788 1 Once daily Topica l False VITAL SIGNS Date Time Diastolic blood pressure Systolic blood pressure Body height Body weight Temperature SpO2 Blood Sugar Pulse Respirations 21041 8 67.00 mm[Hg] - Sitting 145.00 mm[Hg] - Sitting 98.50 Forehead Scan 96.00 % 81.00/ min 16.00/min 17015 004 87172 2 67.00 mm[Hg] - Sitting 145.00 mm[Hg] - Sitting 98.50 Tympanic 81.00/ min 16.00/min 37118 004 04557 5 56.00 mm[Hg] - Sitting 142.00 mm[Hg] - Sitting 136.40 NI 100.20 Tympanic 96.00 % 92.00/ min 18.00/min 96498 004 08191 6 54228 004 32966 4 143.00 mg/dL 60929 004 16434 0 97.80 Tympanic 38312 005 29493 7 60.00 mm[Hg] - Sitting 140.00 mm[Hg] - Sitting 98.00 Tympanic 84.00/ min 18.00/min 40370 005 01030 0 63.00 mm[Hg] - Sitting 141.00 mm[Hg] - Sitting 98.20 Tympanic 92.00 % 63.00/ min 16.00/min 22400 005 81393 8 69.00 mm[Hg] - Sitting 106.00 mm[Hg] - Sitting 97.20 Tympanic 77310 005 79693 7 69.00/ min 16.00/min 67162 005 91587 3 69.00 mm[Hg] - Sitting 106.00 mm[Hg] - Sitting 98.20 Tympanic 69.00/ min 16.00/min 57564 005 32340 1 367.00 mg/dL 92451 005 33671 2 97.20 Tympanic 94365 005 36665 4 97.20 Tympanic 64104 005 43399 0 69.00 mm[Hg] - Sitting 106.00 mm[Hg] - Sitting 69.00/ min 92569 005 98102 3 452.00 mg/dL 90676 005 90121 3 452.00 mg/dL 29740 005 32731 5 352.00 mg/dL 23912 005 76349 3 352.00 mg/dL 06478 005 97218 7 98.20 Tympanic 57135 005 79034 3 101.00 mg/dL 21232 005 72503 8 101.00 mg/dL 22751 006 14787 4 66.00 mm[Hg] - Sitting 107.00 mm[Hg] - Sitting 98.00 Tympanic 66.00/ min 18.00/min 46922 006 89888 0 62.00 mm[Hg] - Sitting 162.00 mm[Hg] - Sitting 98.20 Tympanic 96.00 % 60.00/ min 16.00/min 91719 006 33107 4 62.00 mm[Hg] - Sitting 162.00 mm[Hg] - Sitting 98.00 Tympanic 70.00/ min 18.00/min 82145 006 95896 8 62.00 mm[Hg] - Sitting 162.00 mm[Hg] - Sitting 98.20 Tympanic 70.00/ min 18.00/min 59775 006 31362 2 66.00 mm[Hg] - Sitting 132.00 mm[Hg] - Sitting 98.60 Tympanic 74.00/ min 16.00/min 03634 006 63347 5 159.00 mg/dL 60357 006 95073 1 159.00 mg/dL 61153 006 39699 8 98.00 Tympanic 59982 006 27948 2 62.00 mm[Hg] - Sitting 162.00 mm[Hg] - Sitting 70.00/ min 87727 006 55968 7 264.00 mg/dL 05098 006 33614 7 264.00 mg/dL 05319 006 50410 4 196.00 mg/dL 09233 006 13530 3 98.20 Tympanic 44516 006 91024 6 271.00 mg/dL 40112 007 72045 5 188.00 mg/dL 04114 007 42869 2 188.00 mg/dL 12344 007 29411 2 188.00 mg/dL 43213 007 76836 7 97.20 Tympanic 22092 007 92304 6 97.20 Tympanic 51641 007 86406 5 67.00 mm[Hg] - Sitting 152.00 mm[Hg] - Sitting 68.00/ min
--- OUTSIDE RECORDS SUMMARY | 2024-10-03 11:23 | External Medical Summary | Continuity Of Care Document ---
Author Name Unknown Address [address] [address] Organization [facility] () Care Team Providers Care Composition Floor Setter Name Role Phone DO Machado Amy Primary Care Provider [phone] Allergies Allergy Reaction Start Date End Date [...] Day 3 0.1 mL 08/29 Active 2023 87109 53417 0 1 time Intrad ermal False Tubersol 5 tub. unit/0.1 mL intradermal injection solution [Tuberculin PPD] 0.1mL Intradermal 1 time For PPD 2nd Step Give 2nd Step PPD Day 1 and Read results Day 3 (schedule 7 days after 1st READ) 0.1mL 09/08 Active 2023 44722 29674 0 1 time Intrad ermal False Humalog [...] order For Diabetes 08/25 Inactiv e 2023 32389 09642 9 4 times a day Subcut aneous False Aspirin 325 mg tablet [generic] 325 By Mouth Twice daily For Anticoagulati on 325 09/25 Active 2023 38135 47167 1 Twice daily By Mouth False Ferrous sulfate 325 mg (65 mg iron) tablet [generic] 325 By Mouth Once daily For anemia 325 2023 Active 2023 01629 06775 5 Once daily By Mouth False Linezolid 600 mg tablet [generic] 600 mg By Mouth Every 12 hours For MRSA INFECTION L BKA 600 mg 08/25 Inactiv e 2023 88706 26227 1 Every 12 hours By Mouth False Cefpodoxime 200 mg tablet [generic] 400 mg By Mouth Twice daily For MRSA INFECTION L BKA 400 mg 08/25 Inactiv e 2023 34323 32762 0 Twice daily By Mouth False Coenzyme Q10 100 mg tablet [generic] 100 mg By Mouth Once daily For SUPP 100 mg 2023 Active 2023 48847 45983 0 Once daily By Mouth False Levothyroxi ne 50 mcg tablet [generic] 50mcg By Mouth Once daily For hypothyroidis m 50mcg 2023 Active 2023 79608 69537 0 Once daily By Mouth False One A Day Men Complete 240 mcg-25 mcg-300 mcg tablet 1 tab By Mouth Once daily For supplement 1 tab 2023 Active 2023 03757 67336 1 Once daily By Mouth False Cholecalcif adalberto (vitamin D3) 50 mcg (2,000 unit) tablet [generic] 1 TAB By Mouth Once daily For SUPP 1 TAB 2023 Active 2023 86442 12328 1 Once daily By Mouth False Cetirizine 10 mg tablet [generic] 1 TAB By Mouth At bedtime For Allergies 1 TAB 2023 Active 2023 19832 86625 0 At bedtime By Mouth False Timolol maleate 0.25 % eye drops [generic] 1 drop Both Eyes Twice daily For glaucoma 1 drop 2023 Active 2023 11807 18841 5 Twice daily Both Eyes False Alendronate 35 mg tablet [generic] 35mg By Mouth Every week For SIADH 35mg 2023 Active 2023 65862 08126 5 Every week By Mouth False Lantus Solostar U-100 Insulin 100 unit/mL (3 mL) subcutaneou s pen 18 units Subcutaneous Every morning For DIABETES 18 units 08/25 Inactiv e 2023 74746 01224 0 Every morning Subcut aneous False Lantus Solostar U-100 Insulin 100 unit/mL (3 mL) subcutaneou s pen 18 units Subcutaneous Every morning For DIABETES 18 units 2023 Active 2023 51388 93403 0 Every morning Subcut aneous False Linezolid 600 mg tablet [generic] 600 mg By Mouth Every 12 hours For MRSA INFECTION L BKA 600 mg 08/28 Inactiv e 2023 78936 39004 1 Every 12 hours By Mouth False [...] one-time order For Diabetes 2023 Active 2023 30211 54739 9 4 times a day Subcut aneous False Cefpodoxime 200 mg tablet [generic] 400 mg By Mouth Twice daily For MRSA INFECTION L BKA 400 mg 08/28 Inactiv e 2023 88678 26355 0 Twice daily By Mouth False Brimonidine 0.1 % eye drops [generic] 1 drop Both Eyes Twice daily For glaucoma 1 drop 2023 Active 2023 86543 58124 0 Twice daily Both Eyes False Metoprolol succinate ER 50 mg tablet,exte nded release 24 hr [generic] 50 mg By Mouth Once daily HOLD FOR SBP <100, or pulse <60 For HTN 50 mg 2023 Active 2023 00894 79877 1 Once daily By Mouth False Amlodipine 2.5 mg tablet [generic] 2.5 mg By Mouth Once daily For HTN 2.5 mg 2023 Active 2023 73711 84407 5 Once daily By Mouth False Docusate sodium 100 mg capsule [generic] 100mg By Mouth Twice daily as needed For constipation HOLD FOR LOOSE STOOLS 100mg 2023 Active 2023 19938 97493 1 Twice daily as needed By Mouth False Atorvastati n 40 mg tablet [generic] 40mg By Mouth Once daily For HDL 40mg 08/26 Inactiv e 2023 93142 40865 5 Once daily By Mouth False Tylenol 325 mg tablet 2 tabs By Mouth Every 4 hours as needed For Pain DO NOT EXCEED 3000 MG APAP/24 Hours 2 tabs 2023 Active 2023 39899 70527 0 Every 4 hours as needed By Mouth False Tylenol 325 mg tablet 2 tabs By Mouth Every 4 hours as needed For Fever >100 DO NOT EXCEED 3000 MG APAP/24 Hours 2 tabs 2023 Active 2023 98659 05555 0 Every 4 hours as needed By Mouth False Dulcolax (bisacodyl) 10 mg rectal suppository One Suppository per rectum PRN if Milk of Magnisia ineffective. Give on day 5 of no BM 1 sup 2023 Active 2023 32489 20400 1 Daily as needed Rectal False Fleet Enema 19 gram-7 gram/118 mL Administer per rectum PRN one time if dulcolax suppository not effective. Give on day 6 of no BM 1 2023 Active 2023 26982 76316 6 Daily as needed Rectal False Dextrose 50 % in water (D50W) intravenous solution [generic] Dextrose 50% evonne 20-50 ml (slow push) Intravenous if Glucagon not effective after 15 minutes. CALL 911 for ED Evaluation. 50% evonne 2023 Active 2023 79317 35856 9 Intrav enous False Glucagon (HCl) Emergency Kit 1 mg solution for injection Administer Glucagon 1 mg Intramuscular if 15 minutes after GLucose Gel is administered Glucose remains less than 70 1 mg 2023 Active 2023 26941 88441 2 Intram uscula r False Glucose Gel 40 % oral gel [Dextrose] PRN If resident is unable to swallow (with or without symptoms) and Glucose results less than 70 give GLucose 40% Gel 1 tube orally - Recheck Glucose 15 minutes after administratio n. 1 tube 2023 Active 2023 09889 95513 8 By Mouth False Milk of Magnesia 400 mg/5 mL oral suspension [Magnesium hydroxide] PRN 30ml By Mouth Daily as needed for constipation one time daily if no BM, on day 4 of no BM (PRN refer to instructions) For Constipation 30 mL 2023 Active 2023 14522 38794 6 Daily as needed By Mouth False Atorvastati n 40 mg tablet [generic] 08/26 Inactiv e 2023 08476 00013 5 Atorvastati n 40 mg tablet [generic] 40mg By Mouth Once daily For HDL 40mg 2023 Active 2023 20494 77715 5 Once daily By Mouth False Insulin aspart (U-100) 100 unit/mL (3 mL) subcutaneou s pen [generic] 15 units Subcutaneous 1 time For dm 15 units 08/26 Inactiv e 2023 01104 71700 5 1 time Subcut aneous False Humalog KwikPen (U-100) Insulin 100 unit/mL subcutaneou s 15 units Subcutaneous 1 time For dm 15 units 08/27 Inactiv e 2023 78816 05423 9 1 time Subcut aneous False Linezolid 600 mg tablet [generic] 600 mg By Mouth Every 12 hours For MRSA INFECTION L BKA 600 mg 09/06 Active 2023 23886 68939 1 Every 12 hours By Mouth False Cefpodoxime 200 mg tablet [generic] 400 mg By Mouth Twice daily For MRSA INFECTION L BKA 400 mg 08/31 Active 2023 57619 16150 0 Twice daily By Mouth False MediHoney HCS 4 1/2in X 4 1/2in bandage Cleanse area with NSS, apply one medihoney hydrocolloid dressing, non adherent dressing, kerlix secure with paper tape daily. For wound stage III 1 2023 Active 2023 68341 81339 1 Once daily Topica l False Problems Code Description Start Date End Date Status D64.9 Anemia, unspecified 08/25/2024 Activ e I25.10 Atherosclerotic hear t disease of [place] coronary artery without angina pectoris 08/25/2024 Active [...] weight Temperature SpO2 Blood Sugar Pulse Respirations 43377 8 67.00 mm[Hg] - Sitting 145.00 mm[Hg] - Sitting 98.50 Forehead Scan 96.00 % 81.00/ min 16.00/min 53673 004 08098 2 67.00 mm[Hg] - Sitting 145.00 mm[Hg] - Sitting 98.50 Tympanic 81.00/ min 16.00/min 25740 004 65011 5 56.00 mm[Hg] - Sitting 142.00 mm[Hg] - Sitting 136.40 NI 100.20 Tympanic 96.00 % 92.00/ min 18.00/min 35453 004 02294 6 004 83500 4 143.00 mg/dL 34889 0 97.80 Tympanic 005 28932 7 60.00 mm[Hg] - Sitting 140.00 mm[Hg] - Sitting 98.00 Tympanic 84.00/ min 18.00/min 63732 005 09824 0 63.00 mm[Hg] - Sitting 141.00 mm[Hg] - Sitting 98.20 Tympanic 92.00 % 63.00/ min 16.00/min 63264 005 46888 8 69.00 mm[Hg] - Sitting 106.00 mm[Hg] - Sitting 97.20 Tympanic 005 36992 7 69.00/ min 16.00/min 17892 005 36636 3 69.00 mm[Hg] - Sitting 106.00 mm[Hg] - Sitting 98.20 Tympanic 69.00/ min 16.00/min 61866 005 47790 1 367.00 mg/dL 89679 005 88155 2 97.20 Tympanic 47772 005 84704 4 97.20 Tympanic 73268 005 71984 0 69.00 mm[Hg] - Sitting 106.00 mm[Hg] - Sitting 69.00/ min 60614 005 82136 3 452.00 mg/dL 83553 005 45949 3 452.00 mg/dL 95401 005 99872 5 352.00 mg/dL 26561 005 28504 3 352.00 mg/dL 51044 005 01583 7 98.20 Tympanic 38785 005 3 101.00 mg/dL 75936 005 8 101.00 mg/dL 95820 006 43025 4 66.00 mm[Hg] - Sitting 107.00 mm[Hg] - Sitting 98.00 Tympanic 66.00/ min 18.00/min 12778 006 52710 0 62.00 mm[Hg] - Sitting 162.00 mm[Hg] - Sitting 98.20 Tympanic 96.00 % 60.00/ min 16.00/min 92271 006 88951 4 62.00 mm[Hg] - Sitting 162.00 mm[Hg] - Sitting 98.00 Tympanic 70.00/ min 18.00/min 05694 006 29153 8 62.00 mm[Hg] - Sitting 162.00 mm[Hg] - Sitting 98.20 Tympanic 70.00/ min 18.00/min 73197 006 35142 2 66.00 mm[Hg] - Sitting 132.00 mm[Hg] - Sitting 98.60 Tympanic 74.00/ min 16.00/min 04825 006 89085 5 159.00 mg/dL 49288 006 14736 1 159.00 mg/dL 17636 006 58459 8 98.00 Tympanic 35665 006 98985 2 62.00 mm[Hg] - Sitting 162.00 mm[Hg] - Sitting 70.00/ min 80631 006 27183 7 264.00 mg/dL 22743 006 11603 7 264.00 mg/dL 14693 006 59049 4 196.00 mg/dL 56230 006 13049 3 98.20 Tympanic 15576 006 69958 6 271.00 mg/dL 03491 007 82980 3 97.20 Tympanic 17283 007 96523 2 63.00 mm[Hg] - Sitting 132.00 mm[Hg] - Sitting 98.50 Tympanic 94.00 % 66.00/ min 16.00/min 30289 007 51572 5 188.00 mg/dL 30293 007 37780 2 188.00 mg/dL 43209 007 77825 2 188.00 mg/dL 77173 007 35402 7 97.20 Tympanic 33260 007 81553 6 97.20 Tympanic 66885 007 43532 5 67.00 mm[Hg] - Sitting 152.00 mm[Hg] - Sitting 68.00/ min 37304 007 31809 0 141.00 mg/dL 74431 007 53276 3 141.00 mg/dL 51839 007 52662 1 366.00 mg/dL 27248 007 36861 7 366.00 mg/dL
--- OUTSIDE RECORDS SUMMARY | 2024-10-03 11:23 | External Medical Summary | Continuity Of Care Document ---
Author Name Unknown Address [address] [address] Organization [facility] () Care Team Providers Care Product Marketing Engineer Name Role Phone DO Machado Amy Primary Care Provider [phone] Allergies Allergy Reaction Start Date End Date [...] Day 3 0.1 mL 08/29 Active 2023 21112 41208 0 1 time Intrad ermal False Tubersol 5 tub. unit/0.1 mL intradermal injection solution [Tuberculin PPD] 0.1mL Intradermal 1 time For PPD 2nd Step Give 2nd Step PPD Day 1 and Read results Day 3 (schedule 7 days after 1st READ) 0.1mL 09/08 Active 2023 21498 32378 0 1 time Intrad ermal False Humalog [...] order For Diabetes 08/25 Inactiv e 2023 20254 73753 9 4 times a day Subcut aneous False Aspirin 325 mg tablet [generic] 325 By Mouth Twice daily For Anticoagulati on 325 09/25 Active 2023 15916 04159 1 Twice daily By Mouth False Ferrous sulfate 325 mg (65 mg iron) tablet [generic] 325 By Mouth Once daily For anemia 325 2023 Active 2023 48300 62549 5 Once daily By Mouth False Linezolid 600 mg tablet [generic] 600 mg By Mouth Every 12 hours For MRSA INFECTION L BKA 600 mg 08/25 Inactiv e 2023 18936 51069 1 Every 12 hours By Mouth False Cefpodoxime 200 mg tablet [generic] 400 mg By Mouth Twice daily For MRSA INFECTION L BKA 400 mg 08/25 Inactiv e 2023 52352 97696 0 Twice daily By Mouth False Coenzyme Q10 100 mg tablet [generic] 100 mg By Mouth Once daily For SUPP 100 mg 2023 Active 2023 92173 78938 0 Once daily By Mouth False Levothyroxi ne 50 mcg tablet [generic] 50mcg By Mouth Once daily For hypothyroidis m 50mcg 2023 Active 2023 58133 74232 0 Once daily By Mouth False One A Day Men Complete 240 mcg-25 mcg-300 mcg tablet 1 tab By Mouth Once daily For supplement 1 tab 2023 Active 2023 60939 43804 1 Once daily By Mouth False Cholecalcif adalberto (vitamin D3) 50 mcg (2,000 unit) tablet [generic] 1 TAB By Mouth Once daily For SUPP 1 TAB 2023 Active 2023 65484 00558 1 Once daily By Mouth False Cetirizine 10 mg tablet [generic] 1 TAB By Mouth At bedtime For Allergies 1 TAB 2023 Active 2023 14337 43676 0 At bedtime By Mouth False Timolol maleate 0.25 % eye drops [generic] 1 drop Both Eyes Twice daily For glaucoma 1 drop 2023 Active 2023 84334 80890 5 Twice daily Both Eyes False Alendronate 35 mg tablet [generic] 35mg By Mouth Every week For SIADH 35mg 2023 Active 2023 18282 02924 5 Every week By Mouth False Lantus Solostar U-100 Insulin 100 unit/mL (3 mL) subcutaneou s pen 18 units Subcutaneous Every morning For DIABETES 18 units 08/25 Inactiv e 2023 47533 32497 0 Every morning Subcut aneous False Lantus Solostar U-100 Insulin 100 unit/mL (3 mL) subcutaneou s pen 18 units Subcutaneous Every morning For DIABETES 18 units 2023 Active 2023 77124 0 Every morning Subcut aneous False Linezolid 600 mg tablet [generic] 600 mg By Mouth Every 12 hours For MRSA INFECTION L BKA 600 mg 2023 Active 2023 27704 22513 1 Every 12 hours By Mouth False [...] one-time order For Diabetes 2023 Active 2023 11213 09342 9 4 times a day Subcut aneous False Cefpodoxime 200 mg tablet [generic] 400 mg By Mouth Twice daily For MRSA INFECTION L BKA 400 mg 2023 Active 2023 28192 08000 0 Twice daily By Mouth False Brimonidine 0.1 % eye drops [generic] 1 drop Both Eyes Twice daily For glaucoma 1 drop 2023 Active 2023 16803 42911 0 Twice daily Both Eyes False Metoprolol succinate ER 50 mg tablet,exte nded release 24 hr [generic] 50 mg By Mouth Once daily HOLD FOR SBP <100, or pulse <60 For HTN 50 mg 2023 Active 2023 70281 74720 1 Once daily By Mouth False Amlodipine 2.5 mg tablet [generic] 2.5 mg By Mouth Once daily For HTN 2.5 mg 2023 Active 2023 37885 80900 5 Once daily By Mouth False Docusate sodium 100 mg capsule [generic] 100mg By Mouth Twice daily as needed For constipation HOLD FOR LOOSE STOOLS 100mg 2023 Active 2023 83947 08763 1 Twice daily as needed By Mouth False Atorvastati n 40 mg tablet [generic] 40mg By Mouth Once daily For HDL 40mg 2023 Active 2023 93992 45007 5 Once daily By Mouth False Tylenol 325 mg tablet 2 tabs By Mouth Every 4 hours as needed For Pain DO NOT EXCEED 3000 MG APAP/24 Hours 2 tabs 2023 Active 2023 54739 61021 0 Every 4 hours as needed By Mouth False Tylenol 325 mg tablet 2 tabs By Mouth Every 4 hours as needed For Fever >100 DO NOT EXCEED 3000 MG APAP/24 Hours 2 tabs 2023 Active 2023 71855 92773 0 Every 4 hours as needed By Mouth False Dulcolax (bisacodyl) 10 mg rectal suppository One Suppository per rectum PRN if Milk of Magnisia ineffective. Give on day 5 of no BM 1 sup 2023 Active 2023 12378 22951 1 Daily as needed Rectal False Fleet Enema 19 gram-7 gram/118 mL Administer per rectum PRN one time if dulcolax suppository not effective. Give on day 6 of no BM 1 2023 Active 2023 70087 64053 6 Daily as needed Rectal False Dextrose 50 % in water (D50W) intravenous solution [generic] Dextrose 50% evonne 20-50 ml (slow push) Intravenous if Glucagon not effective after 15 minutes. CALL 911 for ED Evaluation. 50% evonne 2023 Active 2023 66983 51943 9 Intrav enous False Glucagon (HCl) Emergency Kit 1 mg solution for injection Administer Glucagon 1 mg Intramuscular if 15 minutes after GLucose Gel is administered Glucose remains less than 70 1 mg 2023 Active 2023 45260 18709 2 Intram uscula r False Glucose Gel 40 % oral gel [Dextrose] PRN If resident is unable to swallow (with or without symptoms) and Glucose results less than 70 give GLucose 40% Gel 1 tube orally - Recheck Glucose 15 minutes after administratio n. 1 tube 2023 Active 2023 14018 85126 8 By Mouth False Milk of Magnesia 400 mg/5 mL oral suspension [Magnesium hydroxide] PRN 30ml By Mouth Daily as needed for constipation one time daily if no BM, on day 4 of no BM (PRN refer to instructions) For Constipation 30 mL 2023 Active 2023 07114 77441 6 Daily as needed By Mouth False VITAL SIGNS Date Time Diastolic blood pressure Systolic blood pressure Body height Body weight Temperature SpO2 Blood Sugar Pulse Respirations 19842 8 67.00 mm[Hg] - Sitting 145.00 mm[Hg] - Sitting 98.50 Forehead Scan 96.00 % 81.00/ min 16.00/min 42852 2 67.00 mm[Hg] - Sitting 145.00 mm[Hg] - Sitting 98.50 Tympanic 81.00/ min 16.00/min 37057 5 56.00 mm[Hg] - Sitting 142.00 mm[Hg] - Sitting 136.40 NI 100.20 Tympanic 96.00 % 92.00/ min 18.00/min
--- OUTSIDE RECORDS SUMMARY | 2024-10-03 11:23 | External Medical Summary | Continuity Of Care Document ---
Author Name Unknown Address [address] [address] Organization [facility] () Care Team Providers Care Physician Practice Consultant Name Role Phone DO Machado Amy Primary Care Provider [phone] Allergies Allergy Reaction Start Date End Date [...] Day 3 0.1 mL 08/29 Active 2023 86461 45168 0 1 time Intrad ermal False Tubersol 5 tub. unit/0.1 mL intradermal injection solution [Tuberculin PPD] 0.1mL Intradermal 1 time For PPD 2nd Step Give 2nd Step PPD Day 1 and Read results Day 3 (schedule 7 days after 1st READ) 0.1mL 09/08 Active 2023 35388 44249 0 1 time Intrad ermal False Humalog [...] order For Diabetes 08/25 Inactiv e 2023 31967 61587 9 4 times a day Subcut aneous False Aspirin 325 mg tablet [generic] 325 By Mouth Twice daily For Anticoagulati on 325 09/25 Active 2023 17337 32997 1 Twice daily By Mouth False Ferrous sulfate 325 mg (65 mg iron) tablet [generic] 325 By Mouth Once daily For anemia 325 2023 Active 2023 38599 68176 5 Once daily By Mouth False Linezolid 600 mg tablet [generic] 600 mg By Mouth Every 12 hours For MRSA INFECTION L BKA 600 mg 08/25 Inactiv e 2023 34046 78507 1 Every 12 hours By Mouth False Cefpodoxime 200 mg tablet [generic] 400 mg By Mouth Twice daily For MRSA INFECTION L BKA 400 mg 08/25 Inactiv e 2023 26153 39558 0 Twice daily By Mouth False Coenzyme Q10 100 mg tablet [generic] 100 mg By Mouth Once daily For SUPP 100 mg 2023 Active 2023 64589 46790 0 Once daily By Mouth False Levothyroxi ne 50 mcg tablet [generic] 50mcg By Mouth Once daily For hypothyroidis m 50mcg 2023 Active 2023 15048 92098 0 Once daily By Mouth False One A Day Men Complete 240 mcg-25 mcg-300 mcg tablet 1 tab By Mouth Once daily For supplement 1 tab 2023 Active 2023 94476 87805 1 Once daily By Mouth False Cholecalcif adalberto (vitamin D3) 50 mcg (2,000 unit) tablet [generic] 1 TAB By Mouth Once daily For SUPP 1 TAB 2023 Active 2023 62503 62737 1 Once daily By Mouth False Cetirizine 10 mg tablet [generic] 1 TAB By Mouth At bedtime For Allergies 1 TAB 2023 Active 2023 88780 97787 0 At bedtime By Mouth False Timolol maleate 0.25 % eye drops [generic] 1 drop Both Eyes Twice daily For glaucoma 1 drop 2023 Active 2023 35387 07158 5 Twice daily Both Eyes False Alendronate 35 mg tablet [generic] 35mg By Mouth Every week For SIADH 35mg 2023 Active 2023 72991 64841 5 Every week By Mouth False Lantus Solostar U-100 Insulin 100 unit/mL (3 mL) subcutaneou s pen 18 units Subcutaneous Every morning For DIABETES 18 units 08/25 Inactiv e 2023 64237 07936 0 Every morning Subcut aneous False Lantus Solostar U-100 Insulin 100 unit/mL (3 mL) subcutaneou s pen 18 units Subcutaneous Every morning For DIABETES 18 units 2023 Active 2023 89249 0 Every morning Subcut aneous False Linezolid 600 mg tablet [generic] 600 mg By Mouth Every 12 hours For MRSA INFECTION L BKA 600 mg 2023 Active 2023 20068 00677 1 Every 12 hours By Mouth False [...] one-time order For Diabetes 2023 Active 2023 76156 58646 9 4 times a day Subcut aneous False Cefpodoxime 200 mg tablet [generic] 400 mg By Mouth Twice daily For MRSA INFECTION L BKA 400 mg 2023 Active 2023 02502 58419 0 Twice daily By Mouth False Brimonidine 0.1 % eye drops [generic] 1 drop Both Eyes Twice daily For glaucoma 1 drop 2023 Active 2023 33378 51830 0 Twice daily Both Eyes False Metoprolol succinate ER 50 mg tablet,exte nded release 24 hr [generic] 50 mg By Mouth Once daily HOLD FOR SBP <100, or pulse <60 For HTN 50 mg 2023 Active 2023 99360 93169 1 Once daily By Mouth False Amlodipine 2.5 mg tablet [generic] 2.5 mg By Mouth Once daily For HTN 2.5 mg 2023 Active 2023 65871 41161 5 Once daily By Mouth False Docusate sodium 100 mg capsule [generic] 100mg By Mouth Twice daily as needed For constipation HOLD FOR LOOSE STOOLS 100mg 2023 Active 2023 57546 37689 1 Twice daily as needed By Mouth False Atorvastati n 40 mg tablet [generic] 40mg By Mouth Once daily For HDL 40mg 08/26 Inactiv e 2023 87686 38862 5 Once daily By Mouth False Tylenol 325 mg tablet 2 tabs By Mouth Every 4 hours as needed For Pain DO NOT EXCEED 3000 MG APAP/24 Hours 2 tabs 2023 Active 2023 23435 25390 0 Every 4 hours as needed By Mouth False Tylenol 325 mg tablet 2 tabs By Mouth Every 4 hours as needed For Fever >100 DO NOT EXCEED 3000 MG APAP/24 Hours 2 tabs 2023 Active 2023 95467 99053 0 Every 4 hours as needed By Mouth False Dulcolax (bisacodyl) 10 mg rectal suppository One Suppository per rectum PRN if Milk of Magnisia ineffective. Give on day 5 of no BM 1 sup 2023 Active 2023 61236 34351 1 Daily as needed Rectal False Fleet Enema 19 gram-7 gram/118 mL Administer per rectum PRN one time if dulcolax suppository not effective. Give on day 6 of no BM 1 2023 Active 2023 79042 66528 6 Daily as needed Rectal False Dextrose 50 % in water (D50W) intravenous solution [generic] Dextrose 50% evonne 20-50 ml (slow push) Intravenous if Glucagon not effective after 15 minutes. CALL 911 for ED Evaluation. 50% evonne 2023 Active 2023 11733 73921 9 Intrav enous False Glucagon (HCl) Emergency Kit 1 mg solution for injection Administer Glucagon 1 mg Intramuscular if 15 minutes after GLucose Gel is administered Glucose remains less than 70 1 mg 2023 Active 2023 29443 44311 2 Intram uscula r False Glucose Gel 40 % oral gel [Dextrose] PRN If resident is unable to swallow (with or without symptoms) and Glucose results less than 70 give GLucose 40% Gel 1 tube orally - Recheck Glucose 15 minutes after administratio n. 1 tube 2023 Active 2023 82551 17862 8 By Mouth False Milk of Magnesia 400 mg/5 mL oral suspension [Magnesium hydroxide] PRN 30ml By Mouth Daily as needed for constipation one time daily if no BM, on day 4 of no BM (PRN refer to instructions) For Constipation 30 mL 2023 Active 2023 12287 61987 6 Daily as needed By Mouth False Atorvastati n 40 mg tablet [generic] 08/26 Inactiv e 2023 32222 67223 5 Atorvastati n 40 mg tablet [generic] 40mg By Mouth Once daily For HDL 40mg 2023 Active 2023 14759 19922 5 Once daily By Mouth False Insulin aspart (U-100) 100 unit/mL (3 mL) subcutaneou s pen [generic] 15 units Subcutaneous 1 time For dm 15 units 08/26 Inactiv e 2023 82763 37509 5 1 time Subcut aneous False Humalog KwikPen (U-100) Insulin 100 unit/mL subcutaneou s 15 units Subcutaneous 1 time For dm 15 units 08/27 Inactiv e 2023 77169 62164 9 1 time Subcut aneous False MediHoney HCS 4 1/2in X 4 1/2in bandage Cleanse area with NSS, apply one medihoney hydrocolloid dressing, non adherent dressing, kerlix secure with paper tape daily. For wound stage III 1 2023 0000 /0000 Active 2023 93164 92426 1 Once daily Topica l False VITAL SIGNS Date Time Diastolic blood pressure Systolic blood pressure Body height Body weight Temperature SpO2 Blood Sugar Pulse Respirations 16116 8 67.00 mm[Hg] - Sitting 145.00 mm[Hg] - Sitting 98.50 Forehead Scan 96.00 % 81.00/ min 16.00/min 48099 004 47405 2 67.00 mm[Hg] - Sitting 145.00 mm[Hg] - Sitting 98.50 Tympanic 81.00/ min 16.00/min 14888 004 46039 5 56.00 mm[Hg] - Sitting 142.00 mm[Hg] - Sitting 136.40 NI 100.20 Tympanic 96.00 % 92.00/ min 18.00/min 73890 004 39096 6 06042 004 59559 4 143.00 mg/dL 14855 004 33316 0 97.80 Tympanic 44655 005 85816 7 60.00 mm[Hg] - Sitting 140.00 mm[Hg] - Sitting 98.00 Tympanic 84.00/ min 18.00/min 32605 005 97728 0 63.00 mm[Hg] - Sitting 141.00 mm[Hg] - Sitting 98.20 Tympanic 92.00 % 63.00/ min 16.00/min 49016 005 17455 8 69.00 mm[Hg] - Sitting 106.00 mm[Hg] - Sitting 97.20 Tympanic 47863 005 27162 7 69.00/ min 16.00/min 14734 005 11344 3 69.00 mm[Hg] - Sitting 106.00 mm[Hg] - Sitting 98.20 Tympanic 69.00/ min 16.00/min 92073 005 17662 1 367.00 mg/dL 54429 005 66821 2 97.20 Tympanic 65447 005 97065 4 97.20 Tympanic 82712 005 57807 0 69.00 mm[Hg] - Sitting 106.00 mm[Hg] - Sitting 69.00/ min 58699 005 40728 3 452.00 mg/dL 97705 005 96862 3 452.00 mg/dL 98448 005 89498 5 352.00 mg/dL 64833 005 53708 3 352.00 mg/dL 91925 005 08648 7 98.20 Tympanic 09271 005 38859 3 101.00 mg/dL 66643 005 53172 8 101.00 mg/dL 65048 006 86513 4 66.00 mm[Hg] - Sitting 107.00 mm[Hg] - Sitting 98.00 Tympanic 66.00/ min 18.00/min 60494 006 23824 0 62.00 mm[Hg] - Sitting 162.00 mm[Hg] - Sitting 98.20 Tympanic 96.00 % 60.00/ min 16.00/min 01579 006 50079 4 62.00 mm[Hg] - Sitting 162.00 mm[Hg] - Sitting 98.00 Tympanic 70.00/ min 18.00/min 74945 006 46427 8 62.00 mm[Hg] - Sitting 162.00 mm[Hg] - Sitting 98.20 Tympanic 70.00/ min 18.00/min 21761 006 74181 2 66.00 mm[Hg] - Sitting 132.00 mm[Hg] - Sitting 98.60 Tympanic 74.00/ min 16.00/min 61543 006 70872 5 159.00 mg/dL 66631 006 54016 1 159.00 mg/dL 00706 006 21169 8 98.00 Tympanic 54996 006 80284 2 62.00 mm[Hg] - Sitting 162.00 mm[Hg] - Sitting 70.00/ min 15654 006 08241 7 264.00 mg/dL 60786 006 71751 7 264.00 mg/dL 22379 006 19834 4 196.00 mg/dL 89129 006 98369 3 98.20 Tympanic 67625 006 69016 6 271.00 mg/dL 09016 007 77816 5 188.00 mg/dL 02093 007 27656 2 188.00 mg/dL 22445 007 87329 2 188.00 mg/dL 02261 007 42546 7 97.20 Tympanic 70633 007 29805 6 97.20 Tympanic 65300 007 90133 5 67.00 mm[Hg] - Sitting 152.00 mm[Hg] - Sitting 68.00/ min
--- OUTSIDE RECORDS SUMMARY | 2024-10-03 11:24 | External Medical Summary | Continuity Of Care Document ---
Author Name Unknown Address [address] [address] Organization [facility] () Care Team Providers Care Marketing Outreach Coordinator Name Role Phone DO Machado Amy Primary Care Provider [phone] Allergies Allergy Reaction Start Date End Date [...] Day 3 0.1 mL 08/29 Active 2023 64915 49941 0 1 time Intrad ermal False Tubersol 5 tub. unit/0.1 mL intradermal injection solution [Tuberculin PPD] 0.1mL Intradermal 1 time For PPD 2nd Step Give 2nd Step PPD Day 1 and Read results Day 3 (schedule 7 days after 1st READ) 0.1mL 09/08 Active 2023 95180 01779 0 1 time Intrad ermal False Humalog [...] order For Diabetes 08/25 Inactiv e 2023 21978 29831 9 4 times a day Subcut aneous False Aspirin 325 mg tablet [generic] 325 By Mouth Twice daily For Anticoagulati on 325 09/25 Active 2023 29072 90847 1 Twice daily By Mouth False Ferrous sulfate 325 mg (65 mg iron) tablet [generic] 325 By Mouth Once daily For anemia 325 2023 Active 2023 11886 23357 5 Once daily By Mouth False Linezolid 600 mg tablet [generic] 600 mg By Mouth Every 12 hours For MRSA INFECTION L BKA 600 mg 08/25 Inactiv e 2023 93647 92245 1 Every 12 hours By Mouth False Cefpodoxime 200 mg tablet [generic] 400 mg By Mouth Twice daily For MRSA INFECTION L BKA 400 mg 08/25 Inactiv e 2023 23671 47827 0 Twice daily By Mouth False Coenzyme Q10 100 mg tablet [generic] 100 mg By Mouth Once daily For SUPP 100 mg 2023 Active 2023 79237 89867 0 Once daily By Mouth False Levothyroxi ne 50 mcg tablet [generic] 50mcg By Mouth Once daily For hypothyroidis m 50mcg 2023 Active 2023 05640 31410 0 Once daily By Mouth False One A Day Men Complete 240 mcg-25 mcg-300 mcg tablet 1 tab By Mouth Once daily For supplement 1 tab 2023 Active 2023 78262 89967 1 Once daily By Mouth False Cholecalcif adalberto (vitamin D3) 50 mcg (2,000 unit) tablet [generic] 1 TAB By Mouth Once daily For SUPP 1 TAB 2023 Active 2023 24558 42283 1 Once daily By Mouth False Cetirizine 10 mg tablet [generic] 1 TAB By Mouth At bedtime For Allergies 1 TAB 2023 Active 2023 92526 25760 0 At bedtime By Mouth False Timolol maleate 0.25 % eye drops [generic] 1 drop Both Eyes Twice daily For glaucoma 1 drop 2023 Active 2023 34235 09750 5 Twice daily Both Eyes False Alendronate 35 mg tablet [generic] 35mg By Mouth Every week For SIADH 35mg 2023 Active 2023 36441 52450 5 Every week By Mouth False Lantus Solostar U-100 Insulin 100 unit/mL (3 mL) subcutaneou s pen 18 units Subcutaneous Every morning For DIABETES 18 units 08/25 Inactiv e 2023 29308 80136 0 Every morning Subcut aneous False Lantus Solostar U-100 Insulin 100 unit/mL (3 mL) subcutaneou s pen 18 units Subcutaneous Every morning For DIABETES 18 units 2023 Active 2023 19215 0 Every morning Subcut aneous False Linezolid 600 mg tablet [generic] 600 mg By Mouth Every 12 hours For MRSA INFECTION L BKA 600 mg 2023 Active 2023 01640 94609 1 Every 12 hours By Mouth False [...] one-time order For Diabetes 2023 Active 2023 63226 63902 9 4 times a day Subcut aneous False Cefpodoxime 200 mg tablet [generic] 400 mg By Mouth Twice daily For MRSA INFECTION L BKA 400 mg 2023 Active 2023 74495 80021 0 Twice daily By Mouth False Brimonidine 0.1 % eye drops [generic] 1 drop Both Eyes Twice daily For glaucoma 1 drop 2023 Active 2023 96872 00137 0 Twice daily Both Eyes False Metoprolol succinate ER 50 mg tablet,exte nded release 24 hr [generic] 50 mg By Mouth Once daily HOLD FOR SBP <100, or pulse <60 For HTN 50 mg 2023 Active 2023 82980 74178 1 Once daily By Mouth False Amlodipine 2.5 mg tablet [generic] 2.5 mg By Mouth Once daily For HTN 2.5 mg 2023 Active 2023 85517 11156 5 Once daily By Mouth False Docusate sodium 100 mg capsule [generic] 100mg By Mouth Twice daily as needed For constipation HOLD FOR LOOSE STOOLS 100mg 2023 Active 2023 25189 77953 1 Twice daily as needed By Mouth False Atorvastati n 40 mg tablet [generic] 40mg By Mouth Once daily For HDL 40mg 2023 Active 2023 93948 17503 5 Once daily By Mouth False Tylenol 325 mg tablet 2 tabs By Mouth Every 4 hours as needed For Pain DO NOT EXCEED 3000 MG APAP/24 Hours 2 tabs 2023 Active 2023 31659 19380 0 Every 4 hours as needed By Mouth False Tylenol 325 mg tablet 2 tabs By Mouth Every 4 hours as needed For Fever >100 DO NOT EXCEED 3000 MG APAP/24 Hours 2 tabs 2023 Active 2023 64157 74704 0 Every 4 hours as needed By Mouth False Dulcolax (bisacodyl) 10 mg rectal suppository One Suppository per rectum PRN if Milk of Magnisia ineffective. Give on day 5 of no BM 1 sup 2023 Active 2023 31891 33856 1 Daily as needed Rectal False Fleet Enema 19 gram-7 gram/118 mL Administer per rectum PRN one time if dulcolax suppository not effective. Give on day 6 of no BM 1 2023 Active 2023 41387 35732 6 Daily as needed Rectal False Dextrose 50 % in water (D50W) intravenous solution [generic] Dextrose 50% evonne 20-50 ml (slow push) Intravenous if Glucagon not effective after 15 minutes. CALL 911 for ED Evaluation. 50% evonne 2023 Active 2023 36643 69646 9 Intrav enous False Glucagon (HCl) Emergency Kit 1 mg solution for injection Administer Glucagon 1 mg Intramuscular if 15 minutes after GLucose Gel is administered Glucose remains less than 70 1 mg 2023 Active 2023 68023 34369 2 Intram uscula r False Glucose Gel 40 % oral gel [Dextrose] PRN If resident is unable to swallow (with or without symptoms) and Glucose results less than 70 give GLucose 40% Gel 1 tube orally - Recheck Glucose 15 minutes after administratio n. 1 tube 2023 Active 2023 55006 71975 8 By Mouth False Milk of Magnesia 400 mg/5 mL oral suspension [Magnesium hydroxide] PRN 30ml By Mouth Daily as needed for constipation one time daily if no BM, on day 4 of no BM (PRN refer to instructions) For Constipation 30 mL 2023 Active 2023 75066 38821 6 Daily as needed By Mouth False VITAL SIGNS Date Time Diastolic blood pressure Systolic blood pressure Body height Body weight Temperature SpO2 Blood Sugar Pulse Respirations 06295 8 67.00 mm[Hg] - Sitting 145.00 mm[Hg] - Sitting 98.50 Forehead Scan 96.00 % 81.00/ min 16.00/min 64082 2 67.00 mm[Hg] - Sitting 145.00 mm[Hg] - Sitting 98.50 Tympanic 81.00/ min 16.00/min 62903 5 56.00 mm[Hg] - Sitting 142.00 mm[Hg] - Sitting 136.40 NI 100.20 Tympanic 96.00 % 92.00/ min 18.00/min
--- OUTSIDE RECORDS SUMMARY | 2024-10-03 11:24 | External Medical Summary | Continuity Of Care Document ---
Author Name Unknown Address [address] [address] Organization [facility] () Care Team Providers Care Ballet Professor Name Role Phone DO Machado Amy Primary Care Provider [phone] Allergies Allergy Reaction Start Date End Date Status TRAMADOL Weakness Active AMOXICILLIN Nausea, Weakness Active Medications Medication Instructions Dosage Start Date End Date Status Order Date Drug Code Frequency Route of Admin Diagnosis Code Substitutions Allowed Humalog KwikPen (U-100) Insulin 100 unit/mL subcutaneou s Subcutaneous AC & HS times a day <70 HOLD - Initiate Hypoglycemic Protocol HOLD 150-199 give 1.0 Units 200-249 give 3.0 Units 250-299 give 5.0 Units 300-349 give 7.0 Units 350-399 give 9.0 Units >450 Call Provider for one- time order >500 Call Provider for one-time order For Diabetes 2023 Active 2023 20601 57675 9 4 times a day Subcut aneous False Aspirin 325 mg tablet [generic] 325 By Mouth Twice daily For Anticoagulati on 325 09/25 Active 2023 21241 09918 1 Twice daily By Mouth False Ferrous sulfate 325 mg (65 mg iron) tablet [generic] 325 By Mouth Once daily For anemia 325 2023 Active 2023 65513 24617 5 Once daily By Mouth False Linezolid 600 mg tablet [generic] 600 mg By Mouth Every 12 hours For MRSA INFECTION L BKA 600 mg 08/25 Inactiv e 2023 04138 22872 1 Every 12 hours By Mouth False Cefpodoxime 200 mg tablet [generic] 400 mg By Mouth Twice daily For MRSA INFECTION L BKA 400 mg 08/31 Active 2023 45664 71004 0 Twice daily By Mouth False Coenzyme Q10 100 mg tablet [generic] 100 mg By Mouth Once daily For SUPP 100 mg 2023 Active 2023 03192 48520 0 Once daily By Mouth False Levothyroxi ne 50 mcg tablet [generic] 50mcg By Mouth Once daily For hypothyroidis m 50mcg 2023 Active 2023 65834 78399 0 Once daily By Mouth False One A Day Men Complete 240 mcg-25 mcg-300 mcg tablet 1 tab By Mouth Once daily For supplement 1 tab 2023 Active 2023 00974 07087 1 Once daily By Mouth False Cholecalcif adalberto (vitamin D3) 50 mcg (2,000 unit) tablet [generic] 1 TAB By Mouth Once daily For SUPP 1 TAB 2023 Active 2023 38459 42393 1 Once daily By Mouth False Cetirizine 10 mg tablet [generic] 1 TAB By Mouth At bedtime For Allergies 1 TAB 2023 Active 2023 49175 95223 0 At bedtime By Mouth False Timolol maleate 0.25 % eye drops [generic] 1 drop Both Eyes Twice daily For glaucoma 1 drop 2023 Active 2023 71380 98532 5 Twice daily Both Eyes False Alendronate 35 mg tablet [generic] 35mg By Mouth Every week For SIADH 35mg 2023 Active 2023 32473 01289 5 Every week By Mouth False Lantus Solostar U-100 Insulin 100 unit/mL (3 mL) subcutaneou s pen 18 units Subcutaneous Every morning For DIABETES 18 units 08/25 Inactiv e 2023 24883 71601 0 Every morning Subcut aneous False Lantus Solostar U-100 Insulin 100 unit/mL (3 mL) subcutaneou s pen 18 units Subcutaneous Every morning For DIABETES 18 units 2023 Active 2023 05284 67188 0 Every morning Subcut aneous False Linezolid 600 mg tablet [generic] 600 mg By Mouth Every 12 hours For MRSA INFECTION L BKA 600 mg 2023 Active 2023 42970 63616 1 Every 12 hours By Mouth False VITAL SIGNS Date Time Diastolic blood pressure Systolic blood pressure Body height Body weight Temperature SpO2 Blood Sugar Pulse Respirations 8 67.00 mm[Hg] - Sitting 145.00 mm[Hg] - Sitting 98.50 Forehead Scan 96.00 % 81.00/ min 16.00/min 55372 2 67.00 mm[Hg] - Sitting 145.00 mm[Hg] - Sitting 98.50 Tympanic 81.00/ min 16.00/min 92673 5 56.00 mm[Hg] - Sitting 142.00 mm[Hg] - Sitting 136.40 NI 100.20 Tympanic 96.00 % 92.00/ min 18.00/min
--- OUTSIDE RECORDS SUMMARY | 2024-10-03 11:24 | External Medical Summary | Continuity Of Care Document ---
Author Name Unknown Address [address] [address] Organization [facility] () Care Team Providers Care Forepart Rounder Name Role Phone DO Machado Amy Primary Care Provider [phone] Allergies Allergy Reaction Start Date End Date [...] Day 3 0.1 mL 08/29 Active 2023 87883 88288 0 1 time Intrad ermal False Tubersol 5 tub. unit/0.1 mL intradermal injection solution [Tuberculin PPD] 0.1mL Intradermal 1 time For PPD 2nd Step Give 2nd Step PPD Day 1 and Read results Day 3 (schedule 7 days after 1st READ) 0.1mL 09/08 Active 2023 09430 65925 0 1 time Intrad ermal False Humalog [...] order For Diabetes 08/25 Inactiv e 2023 43235 32688 9 4 times a day Subcut aneous False Aspirin 325 mg tablet [generic] 325 By Mouth Twice daily For Anticoagulati on 325 09/25 Active 2023 32945 98370 1 Twice daily By Mouth False Ferrous sulfate 325 mg (65 mg iron) tablet [generic] 325 By Mouth Once daily For anemia 325 2023 Active 2023 74833 98529 5 Once daily By Mouth False Linezolid 600 mg tablet [generic] 600 mg By Mouth Every 12 hours For MRSA INFECTION L BKA 600 mg 08/25 Inactiv e 2023 94157 47842 1 Every 12 hours By Mouth False Cefpodoxime 200 mg tablet [generic] 400 mg By Mouth Twice daily For MRSA INFECTION L BKA 400 mg 08/25 Inactiv e 2023 38456 30459 0 Twice daily By Mouth False Coenzyme Q10 100 mg tablet [generic] 100 mg By Mouth Once daily For SUPP 100 mg 2023 Active 2023 48645 09571 0 Once daily By Mouth False Levothyroxi ne 50 mcg tablet [generic] 50mcg By Mouth Once daily For hypothyroidis m 50mcg 2023 Active 2023 55120 86552 0 Once daily By Mouth False One A Day Men Complete 240 mcg-25 mcg-300 mcg tablet 1 tab By Mouth Once daily For supplement 1 tab 2023 Active 2023 58003 89300 1 Once daily By Mouth False Cholecalcif adalberto (vitamin D3) 50 mcg (2,000 unit) tablet [generic] 1 TAB By Mouth Once daily For SUPP 1 TAB 2023 Active 2023 51030 85137 1 Once daily By Mouth False Cetirizine 10 mg tablet [generic] 1 TAB By Mouth At bedtime For Allergies 1 TAB 2023 Active 2023 42723 77137 0 At bedtime By Mouth False Timolol maleate 0.25 % eye drops [generic] 1 drop Both Eyes Twice daily For glaucoma 1 drop 2023 Active 2023 71532 61958 5 Twice daily Both Eyes False Alendronate 35 mg tablet [generic] 35mg By Mouth Every week For SIADH 35mg 2023 Active 2023 20940 86583 5 Every week By Mouth False Lantus Solostar U-100 Insulin 100 unit/mL (3 mL) subcutaneou s pen 18 units Subcutaneous Every morning For DIABETES 18 units 08/25 Inactiv e 2023 46188 80718 0 Every morning Subcut aneous False Lantus Solostar U-100 Insulin 100 unit/mL (3 mL) subcutaneou s pen 18 units Subcutaneous Every morning For DIABETES 18 units 2023 Active 2023 06738 0 Every morning Subcut aneous False Linezolid 600 mg tablet [generic] 600 mg By Mouth Every 12 hours For MRSA INFECTION L BKA 600 mg 2023 Active 2023 25164 39465 1 Every 12 hours By Mouth False [...] one-time order For Diabetes 2023 Active 2023 54209 63542 9 4 times a day Subcut aneous False Cefpodoxime 200 mg tablet [generic] 400 mg By Mouth Twice daily For MRSA INFECTION L BKA 400 mg 2023 Active 2023 92918 26284 0 Twice daily By Mouth False Brimonidine 0.1 % eye drops [generic] 1 drop Both Eyes Twice daily For glaucoma 1 drop 2023 Active 2023 34974 21872 0 Twice daily Both Eyes False Metoprolol succinate ER 50 mg tablet,exte nded release 24 hr [generic] 50 mg By Mouth Once daily HOLD FOR SBP <100, or pulse <60 For HTN 50 mg 2023 Active 2023 89986 21527 1 Once daily By Mouth False Amlodipine 2.5 mg tablet [generic] 2.5 mg By Mouth Once daily For HTN 2.5 mg 2023 Active 2023 81607 49078 5 Once daily By Mouth False Docusate sodium 100 mg capsule [generic] 100mg By Mouth Twice daily as needed For constipation HOLD FOR LOOSE STOOLS 100mg 2023 Active 2023 52649 77986 1 Twice daily as needed By Mouth False Atorvastati n 40 mg tablet [generic] 40mg By Mouth Once daily For HDL 40mg 2023 Active 2023 11620 63827 5 Once daily By Mouth False Tylenol 325 mg tablet 2 tabs By Mouth Every 4 hours as needed For Pain DO NOT EXCEED 3000 MG APAP/24 Hours 2 tabs 2023 Active 2023 71503 89981 0 Every 4 hours as needed By Mouth False Tylenol 325 mg tablet 2 tabs By Mouth Every 4 hours as needed For Fever >100 DO NOT EXCEED 3000 MG APAP/24 Hours 2 tabs 2023 Active 2023 46513 97778 0 Every 4 hours as needed By Mouth False Dulcolax (bisacodyl) 10 mg rectal suppository One Suppository per rectum PRN if Milk of Magnisia ineffective. Give on day 5 of no BM 1 sup 2023 Active 2023 91590 84374 1 Daily as needed Rectal False Fleet Enema 19 gram-7 gram/118 mL Administer per rectum PRN one time if dulcolax suppository not effective. Give on day 6 of no BM 1 2023 Active 2023 28399 22155 6 Daily as needed Rectal False Dextrose 50 % in water (D50W) intravenous solution [generic] Dextrose 50% evonne 20-50 ml (slow push) Intravenous if Glucagon not effective after 15 minutes. CALL 911 for ED Evaluation. 50% evonne 2023 Active 2023 89420 68323 9 Intrav enous False Glucagon (HCl) Emergency Kit 1 mg solution for injection Administer Glucagon 1 mg Intramuscular if 15 minutes after GLucose Gel is administered Glucose remains less than 70 1 mg 2023 Active 2023 70770 48842 2 Intram uscula r False Glucose Gel 40 % oral gel [Dextrose] PRN If resident is unable to swallow (with or without symptoms) and Glucose results less than 70 give GLucose 40% Gel 1 tube orally - Recheck Glucose 15 minutes after administratio n. 1 tube 2023 Active 2023 48412 91035 8 By Mouth False Milk of Magnesia 400 mg/5 mL oral suspension [Magnesium hydroxide] PRN 30ml By Mouth Daily as needed for constipation one time daily if no BM, on day 4 of no BM (PRN refer to instructions) For Constipation 30 mL 2023 Active 2023 66138 95466 6 Daily as needed By Mouth False VITAL SIGNS Date Time Diastolic blood pressure Systolic blood pressure Body height Body weight Temperature SpO2 Blood Sugar Pulse Respirations 51889 8 67.00 mm[Hg] - Sitting 145.00 mm[Hg] - Sitting 98.50 Forehead Scan 96.00 % 81.00/ min 16.00/min 00495 2 67.00 mm[Hg] - Sitting 145.00 mm[Hg] - Sitting 98.50 Tympanic 81.00/ min 16.00/min 87591 5 56.00 mm[Hg] - Sitting 142.00 mm[Hg] - Sitting 136.40 NI 100.20 Tympanic 96.00 % 92.00/ min 18.00/min
--- OUTSIDE RECORDS SUMMARY | 2024-10-03 11:24 | External Medical Summary | Continuity Of Care Document ---
Author Name Unknown Address [address] [address] Organization [facility] () Care Team Providers Care Forest Fire Specialist Supervisor Name Role Phone DO Machado Amy Primary Care Provider [phone] Allergies Allergy Reaction Start Date End Date [...] order For Diabetes 08/25 Inactiv e 2023 96791 30680 9 4 times a day Subcut aneous False Aspirin 325 mg tablet [generic] 325 By Mouth Twice daily For Anticoagulati on 325 09/25 Active 2023 76206 30434 1 Twice daily By Mouth False Ferrous sulfate 325 mg (65 mg iron) tablet [generic] 325 By Mouth Once daily For anemia 325 2023 0000 0000 Active 2023 66349 90293 5 Once daily By Mouth False Linezolid 600 mg tablet [generic] 600 mg By Mouth Every 12 hours For MRSA INFECTION L BKA 600 mg 08/25 Inactiv e 2023 23185 92175 1 Every 12 hours By Mouth False Cefpodoxime 200 mg tablet [generic] 400 mg By Mouth Twice daily For MRSA INFECTION L BKA 400 mg 08/25 Inactiv e 2023 44521 60153 0 Twice daily By Mouth False Coenzyme Q10 100 mg tablet [generic] 100 mg By Mouth Once daily For SUPP 100 mg 2023 Active 2023 79160 49042 0 Once daily By Mouth False Levothyroxi ne 50 mcg tablet [generic] 50mcg By Mouth Once daily For hypothyroidis m 50mcg 2023 Active 2023 74100 79049 0 Once daily By Mouth False One A Day Men Complete 240 mcg-25 mcg-300 mcg tablet 1 tab By Mouth Once daily For supplement 1 tab 2023 Active 2023 85117 98574 1 Once daily By Mouth False Cholecalcif adalberto (vitamin D3) 50 mcg (2,000 unit) tablet [generic] 1 TAB By Mouth Once daily For SUPP 1 TAB 2023 Active 2023 67935 85772 1 Once daily By Mouth False Cetirizine 10 mg tablet [generic] 1 TAB By Mouth At bedtime For Allergies 1 TAB 2023 Active 2023 76367 46012 0 At bedtime By Mouth False Timolol maleate 0.25 % eye drops [generic] 1 drop Both Eyes Twice daily For glaucoma 1 drop 2023 Active 2023 67538 52100 5 Twice daily Both Eyes False Alendronate 35 mg tablet [generic] 35mg By Mouth Every week For SIADH 35mg 2023 Active 2023 30540 02885 5 Every week By Mouth False Lantus Solostar U-100 Insulin 100 unit/mL (3 mL) subcutaneou s pen 18 units Subcutaneous Every morning For DIABETES 18 units 08/25 Inactiv e 2023 06873 36002 0 Every morning Subcut aneous False Lantus Solostar U-100 Insulin 100 unit/mL (3 mL) subcutaneou s pen 18 units Subcutaneous Every morning For DIABETES 18 units 2023 Active 2023 67607 11223 0 Every morning Subcut aneous False Linezolid 600 mg tablet [generic] 600 mg By Mouth Every 12 hours For MRSA INFECTION L BKA 600 mg 2023 Active 2023 34630 66573 1 Every 12 hours By Mouth False [...] for one-time order For Diabetes 2023 Active 20232 36069 9 4 times a day Subcut aneous False Cefpodoxime 200 mg tablet [generic] 400 mg By Mouth Twice daily For MRSA INFECTION L BKA 400 mg 2023 Active 2023 89220 70993 0 Twice daily By Mouth False Brimonidine 0.1 % eye drops [generic] 1 drop Both Eyes Twice daily For glaucoma 1 drop 2023 Active 2023 85969 23904 0 Twice daily Both Eyes False Metoprolol succinate ER 50 mg tablet,exte nded release 24 hr [generic] 50 mg By Mouth Once daily HOLD FOR SBP <100, or pulse <60 For HTN 50 mg 2023 Active 2023 42480 57680 1 Once daily By Mouth False Amlodipine 2.5 mg tablet [generic] 2.5 mg By Mouth Once daily For HTN 2.5 mg 2023 Active 2023 91206 77680 5 Once daily By Mouth False Docusate sodium 100 mg capsule [generic] 100mg By Mouth Twice daily as needed For constipation HOLD FOR LOOSE STOOLS 100mg 2023 Active 2023 44828 94025 1 Twice daily as needed By Mouth False VITAL SIGNS Date Time Diastolic blood pressure Systolic blood pressure Body height Body weight Temperature SpO2 Blood Sugar Pulse Respirations 98732 8 67.00 mm[Hg] - Sitting 145.00 mm[Hg] - Sitting 98.50 Forehead Scan 96.00 % 81.00/ min 16.00/min 87727 2 67.00 mm[Hg] - Sitting 145.00 mm[Hg] - Sitting 98.50 Tympanic 81.00/ min 16.00/min 5 56.00 mm[Hg] - Sitting 142.00 mm[Hg] - Sitting 136.40 NI 100.20 Tympanic 96.00 % 92.00/ min 18.00/min
--- OUTSIDE RECORDS SUMMARY | 2024-10-03 11:24 | External Medical Summary | Continuity Of Care Document ---
Author Name Unknown Address [address] [address] Organization [facility] () Care Team Providers Care Chemical Detection Expert Name Role Phone DO Machado Amy Primary Care Provider [phone] Allergies Allergy Reaction Start Date End Date [...] Day 3 0.1 mL 08/29 Active 2023 68382 97510 0 1 time Intrad ermal False Tubersol 5 tub. unit/0.1 mL intradermal injection solution [Tuberculin PPD] 0.1mL Intradermal 1 time For PPD 2nd Step Give 2nd Step PPD Day 1 and Read results Day 3 (schedule 7 days after 1st READ) 0.1mL 09/08 Active 2023 32242 93741 0 1 time Intrad ermal False Humalog [...] order For Diabetes 08/25 Inactiv e 2023 08690 95516 9 4 times a day Subcut aneous False Aspirin 325 mg tablet [generic] 325 By Mouth Twice daily For Anticoagulati on 325 09/25 Active 2023 98433 05749 1 Twice daily By Mouth False Ferrous sulfate 325 mg (65 mg iron) tablet [generic] 325 By Mouth Once daily For anemia 325 2023 Active 2023 30106 80109 5 Once daily By Mouth False Linezolid 600 mg tablet [generic] 600 mg By Mouth Every 12 hours For MRSA INFECTION L BKA 600 mg 08/25 Inactiv e 2023 72720 99462 1 Every 12 hours By Mouth False Cefpodoxime 200 mg tablet [generic] 400 mg By Mouth Twice daily For MRSA INFECTION L BKA 400 mg 08/25 Inactiv e 2023 62615 07219 0 Twice daily By Mouth False Coenzyme Q10 100 mg tablet [generic] 100 mg By Mouth Once daily For SUPP 100 mg 2023 Active 2023 86018 04252 0 Once daily By Mouth False Levothyroxi ne 50 mcg tablet [generic] 50mcg By Mouth Once daily For hypothyroidis m 50mcg 2023 Active 2023 09596 72218 0 Once daily By Mouth False One A Day Men Complete 240 mcg-25 mcg-300 mcg tablet 1 tab By Mouth Once daily For supplement 1 tab 2023 Active 2023 42302 23573 1 Once daily By Mouth False Cholecalcif adalberto (vitamin D3) 50 mcg (2,000 unit) tablet [generic] 1 TAB By Mouth Once daily For SUPP 1 TAB 2023 Active 2023 85642 77744 1 Once daily By Mouth False Cetirizine 10 mg tablet [generic] 1 TAB By Mouth At bedtime For Allergies 1 TAB 2023 Active 2023 88582 06906 0 At bedtime By Mouth False Timolol maleate 0.25 % eye drops [generic] 1 drop Both Eyes Twice daily For glaucoma 1 drop 2023 Active 2023 71227 74069 5 Twice daily Both Eyes False Alendronate 35 mg tablet [generic] 35mg By Mouth Every week For SIADH 35mg 2023 Active 2023 53568 59817 5 Every week By Mouth False Lantus Solostar U-100 Insulin 100 unit/mL (3 mL) subcutaneou s pen 18 units Subcutaneous Every morning For DIABETES 18 units 08/25 Inactiv e 2023 72932 14100 0 Every morning Subcut aneous False Lantus Solostar U-100 Insulin 100 unit/mL (3 mL) subcutaneou s pen 18 units Subcutaneous Every morning For DIABETES 18 units 2023 Active 2023 91096 0 Every morning Subcut aneous False Linezolid 600 mg tablet [generic] 600 mg By Mouth Every 12 hours For MRSA INFECTION L BKA 600 mg 2023 Active 2023 74711 36087 1 Every 12 hours By Mouth False [...] one-time order For Diabetes 2023 Active 2023 19765 89570 9 4 times a day Subcut aneous False Cefpodoxime 200 mg tablet [generic] 400 mg By Mouth Twice daily For MRSA INFECTION L BKA 400 mg 2023 Active 2023 13776 58787 0 Twice daily By Mouth False Brimonidine 0.1 % eye drops [generic] 1 drop Both Eyes Twice daily For glaucoma 1 drop 2023 Active 2023 04157 36329 0 Twice daily Both Eyes False Metoprolol succinate ER 50 mg tablet,exte nded release 24 hr [generic] 50 mg By Mouth Once daily HOLD FOR SBP <100, or pulse <60 For HTN 50 mg 2023 Active 2023 13023 21281 1 Once daily By Mouth False Amlodipine 2.5 mg tablet [generic] 2.5 mg By Mouth Once daily For HTN 2.5 mg 2023 Active 2023 09612 41184 5 Once daily By Mouth False Docusate sodium 100 mg capsule [generic] 100mg By Mouth Twice daily as needed For constipation HOLD FOR LOOSE STOOLS 100mg 2023 Active 2023 93953 47018 1 Twice daily as needed By Mouth False Atorvastati n 40 mg tablet [generic] 40mg By Mouth Once daily For HDL 40mg 08/26 Inactiv e 2023 76505 85765 5 Once daily By Mouth False Tylenol 325 mg tablet 2 tabs By Mouth Every 4 hours as needed For Pain DO NOT EXCEED 3000 MG APAP/24 Hours 2 tabs 2023 Active 2023 22397 05993 0 Every 4 hours as needed By Mouth False Tylenol 325 mg tablet 2 tabs By Mouth Every 4 hours as needed For Fever >100 DO NOT EXCEED 3000 MG APAP/24 Hours 2 tabs 2023 Active 2023 20762 92027 0 Every 4 hours as needed By Mouth False Dulcolax (bisacodyl) 10 mg rectal suppository One Suppository per rectum PRN if Milk of Magnisia ineffective. Give on day 5 of no BM 1 sup 2023 Active 2023 45940 37775 1 Daily as needed Rectal False Fleet Enema 19 gram-7 gram/118 mL Administer per rectum PRN one time if dulcolax suppository not effective. Give on day 6 of no BM 1 2023 Active 2023 44070 98662 6 Daily as needed Rectal False Dextrose 50 % in water (D50W) intravenous solution [generic] Dextrose 50% evonne 20-50 ml (slow push) Intravenous if Glucagon not effective after 15 minutes. CALL 911 for ED Evaluation. 50% evonne 2023 Active 2023 01361 81977 9 Intrav enous False Glucagon (HCl) Emergency Kit 1 mg solution for injection Administer Glucagon 1 mg Intramuscular if 15 minutes after GLucose Gel is administered Glucose remains less than 70 1 mg 2023 Active 2023 61743 94672 2 Intram uscula r False Glucose Gel 40 % oral gel [Dextrose] PRN If resident is unable to swallow (with or without symptoms) and Glucose results less than 70 give GLucose 40% Gel 1 tube orally - Recheck Glucose 15 minutes after administratio n. 1 tube 2023 Active 2023 13622 86523 8 By Mouth False Milk of Magnesia 400 mg/5 mL oral suspension [Magnesium hydroxide] PRN 30ml By Mouth Daily as needed for constipation one time daily if no BM, on day 4 of no BM (PRN refer to instructions) For Constipation 30 mL 2023 Active 2023 37563 12961 6 Daily as needed By Mouth False Atorvastati n 40 mg tablet [generic] 08/26 Inactiv e 2023 71018 14082 5 Atorvastati n 40 mg tablet [generic] 40mg By Mouth Once daily For HDL 40mg 2023 Active 2023 86124 91755 5 Once daily By Mouth False VITAL SIGNS Date Time Diastolic blood pressure Systolic blood pressure Body height Body weight Temperature SpO2 Blood Sugar Pulse Respirations 62 8 67.00 mm[Hg] - Sitting 145.00 mm[Hg] - Sitting 98.50 Forehead Scan 96.00 % 81.00/ min 16.00/min 37417 2 67.00 mm[Hg] - Sitting 145.00 mm[Hg] - Sitting 98.50 Tympanic 81.00/ min 16.00/min 23 5 56.00 mm[Hg] - Sitting 142.00 mm[Hg] - Sitting 136.40 NI 100.20 Tympanic 96.00 % 92.00/ min 18.00/min 26436 004 90740 6 05724 004 31419 4 143.00 mg/dL 004 56663 0 97.80 Tympanic 45113 005 56020 7 60.00 mm[Hg] - Sitting 140.00 mm[Hg] - Sitting 98.00 Tympanic 84.00/ min 18.00/min 01683 005 42996 0 63.00 mm[Hg] - Sitting 141.00 mm[Hg] - Sitting 98.20 Tympanic 92.00 % 63.00/ min 16.00/min 97884 005 57424 1 367.00 mg/dL 64022 005 50748 2 97.20 Tympanic 41498 005 85789 4 97.20 Tympanic 59143 005 53794 0 69.00 mm[Hg] - Sitting 106.00 mm[Hg] - Sitting 69.00/ min
--- OUTSIDE RECORDS SUMMARY | 2024-10-03 11:24 | External Medical Summary | Continuity Of Care Document ---
Author Name Unknown Address [address] [address] Organization [facility] () Care Team Providers Care Change Advisor Name Role Phone DO Machado Amy Primary Care Provider [phone] Allergies Allergy Reaction Start Date End Date [...] Day 3 0.1 mL 08/29 Active 2023 97651 27596 0 1 time Intrad ermal False Tubersol 5 tub. unit/0.1 mL intradermal injection solution [Tuberculin PPD] 0.1mL Intradermal 1 time For PPD 2nd Step Give 2nd Step PPD Day 1 and Read results Day 3 (schedule 7 days after 1st READ) 0.1mL 09/08 Active 2023 37465 64077 0 1 time Intrad ermal False Humalog [...] order For Diabetes 08/25 Inactiv e 2023 49042 16640 9 4 times a day Subcut aneous False Aspirin 325 mg tablet [generic] 325 By Mouth Twice daily For Anticoagulati on 325 09/25 Active 2023 58178 09303 1 Twice daily By Mouth False Ferrous sulfate 325 mg (65 mg iron) tablet [generic] 325 By Mouth Once daily For anemia 325 2023 Active 2023 21684 94602 5 Once daily By Mouth False Linezolid 600 mg tablet [generic] 600 mg By Mouth Every 12 hours For MRSA INFECTION L BKA 600 mg 08/25 Inactiv e 2023 12290 88736 1 Every 12 hours By Mouth False Cefpodoxime 200 mg tablet [generic] 400 mg By Mouth Twice daily For MRSA INFECTION L BKA 400 mg 08/25 Inactiv e 2023 51209 59172 0 Twice daily By Mouth False Coenzyme Q10 100 mg tablet [generic] 100 mg By Mouth Once daily For SUPP 100 mg 2023 Active 2023 92746 83497 0 Once daily By Mouth False Levothyroxi ne 50 mcg tablet [generic] 50mcg By Mouth Once daily For hypothyroidis m 50mcg 2023 Active 2023 36490 42617 0 Once daily By Mouth False One A Day Men Complete 240 mcg-25 mcg-300 mcg tablet 1 tab By Mouth Once daily For supplement 1 tab 2023 Active 2023 23019 77538 1 Once daily By Mouth False Cholecalcif adalberto (vitamin D3) 50 mcg (2,000 unit) tablet [generic] 1 TAB By Mouth Once daily For SUPP 1 TAB 2023 Active 2023 95902 27371 1 Once daily By Mouth False Cetirizine 10 mg tablet [generic] 1 TAB By Mouth At bedtime For Allergies 1 TAB 2023 Active 2023 19819 97818 0 At bedtime By Mouth False Timolol maleate 0.25 % eye drops [generic] 1 drop Both Eyes Twice daily For glaucoma 1 drop 2023 Active 2023 58476 82269 5 Twice daily Both Eyes False Alendronate 35 mg tablet [generic] 35mg By Mouth Every week For SIADH 35mg 2023 Active 2023 62730 41621 5 Every week By Mouth False Lantus Solostar U-100 Insulin 100 unit/mL (3 mL) subcutaneou s pen 18 units Subcutaneous Every morning For DIABETES 18 units 08/25 Inactiv e 2023 79330 70961 0 Every morning Subcut aneous False Lantus Solostar U-100 Insulin 100 unit/mL (3 mL) subcutaneou s pen 18 units Subcutaneous Every morning For DIABETES 18 units 2023 Active 2023 57284 0 Every morning Subcut aneous False Linezolid 600 mg tablet [generic] 600 mg By Mouth Every 12 hours For MRSA INFECTION L BKA 600 mg 2023 Active 2023 37626 64005 1 Every 12 hours By Mouth False [...] one-time order For Diabetes 2023 Active 2023 34840 76541 9 4 times a day Subcut aneous False Cefpodoxime 200 mg tablet [generic] 400 mg By Mouth Twice daily For MRSA INFECTION L BKA 400 mg 2023 Active 2023 83535 94600 0 Twice daily By Mouth False Brimonidine 0.1 % eye drops [generic] 1 drop Both Eyes Twice daily For glaucoma 1 drop 2023 Active 2023 23904 53138 0 Twice daily Both Eyes False Metoprolol succinate ER 50 mg tablet,exte nded release 24 hr [generic] 50 mg By Mouth Once daily HOLD FOR SBP <100, or pulse <60 For HTN 50 mg 2023 Active 2023 77217 72187 1 Once daily By Mouth False Amlodipine 2.5 mg tablet [generic] 2.5 mg By Mouth Once daily For HTN 2.5 mg 2023 Active 2023 97235 17066 5 Once daily By Mouth False Docusate sodium 100 mg capsule [generic] 100mg By Mouth Twice daily as needed For constipation HOLD FOR LOOSE STOOLS 100mg 2023 Active 2023 50047 14270 1 Twice daily as needed By Mouth False Atorvastati n 40 mg tablet [generic] 40mg By Mouth Once daily For HDL 40mg 2023 Active 2023 93639 71740 5 Once daily By Mouth False Tylenol 325 mg tablet 2 tabs By Mouth Every 4 hours as needed For Pain DO NOT EXCEED 3000 MG APAP/24 Hours 2 tabs 2023 Active 2023 62369 70923 0 Every 4 hours as needed By Mouth False Tylenol 325 mg tablet 2 tabs By Mouth Every 4 hours as needed For Fever >100 DO NOT EXCEED 3000 MG APAP/24 Hours 2 tabs 2023 Active 2023 08931 05460 0 Every 4 hours as needed By Mouth False Dulcolax (bisacodyl) 10 mg rectal suppository One Suppository per rectum PRN if Milk of Magnisia ineffective. Give on day 5 of no BM 1 sup 2023 Active 2023 55811 84387 1 Daily as needed Rectal False Fleet Enema 19 gram-7 gram/118 mL Administer per rectum PRN one time if dulcolax suppository not effective. Give on day 6 of no BM 1 2023 Active 2023 55748 21263 6 Daily as needed Rectal False Dextrose 50 % in water (D50W) intravenous solution [generic] Dextrose 50% evonne 20-50 ml (slow push) Intravenous if Glucagon not effective after 15 minutes. CALL 911 for ED Evaluation. 50% evonne 2023 Active 2023 52551 37033 9 Intrav enous False Glucagon (HCl) Emergency Kit 1 mg solution for injection Administer Glucagon 1 mg Intramuscular if 15 minutes after GLucose Gel is administered Glucose remains less than 70 1 mg 2023 Active 2023 93251 61756 2 Intram uscula r False Glucose Gel 40 % oral gel [Dextrose] PRN If resident is unable to swallow (with or without symptoms) and Glucose results less than 70 give GLucose 40% Gel 1 tube orally - Recheck Glucose 15 minutes after administratio n. 1 tube 2023 Active 2023 16943 10595 8 By Mouth False Milk of Magnesia 400 mg/5 mL oral suspension [Magnesium hydroxide] PRN 30ml By Mouth Daily as needed for constipation one time daily if no BM, on day 4 of no BM (PRN refer to instructions) For Constipation 30 mL 2023 Active 2023 04906 52112 6 Daily as needed By Mouth False VITAL SIGNS Date Time Diastolic blood pressure Systolic blood pressure Body height Body weight Temperature SpO2 Blood Sugar Pulse Respirations 19211 8 67.00 mm[Hg] - Sitting 145.00 mm[Hg] - Sitting 98.50 Forehead Scan 96.00 % 81.00/ min 16.00/min 47475 2 67.00 mm[Hg] - Sitting 145.00 mm[Hg] - Sitting 98.50 Tympanic 81.00/ min 16.00/min 09066 5 56.00 mm[Hg] - Sitting 142.00 mm[Hg] - Sitting 136.40 NI 100.20 Tympanic 96.00 % 92.00/ min 18.00/min 91 6 4 143.00 mg/dL 0 97.80 Tympanic
--- OUTSIDE RECORDS SUMMARY | 2024-10-03 11:24 | External Medical Summary | Continuity Of Care Document ---
Author Name Unknown Address [address] [address] Organization [facility] () Care Team Providers Care Buggy Runner Name Role Phone DO Machado Amy Primary Care Provider [phone] Allergies Allergy Reaction Start Date End Date [...] Day 3 0.1 mL 08/29 Active 2023 70404 93542 0 1 time Intrad ermal False Tubersol 5 tub. unit/0.1 mL intradermal injection solution [Tuberculin PPD] 0.1mL Intradermal 1 time For PPD 2nd Step Give 2nd Step PPD Day 1 and Read results Day 3 (schedule 7 days after 1st READ) 0.1mL 09/08 Active 2023 88812 23769 0 1 time Intrad ermal False Humalog [...] order For Diabetes 08/25 Inactiv e 2023 16278 24416 9 4 times a day Subcut aneous False Aspirin 325 mg tablet [generic] 325 By Mouth Twice daily For Anticoagulati on 325 09/25 Active 2023 15252 09360 1 Twice daily By Mouth False Ferrous sulfate 325 mg (65 mg iron) tablet [generic] 325 By Mouth Once daily For anemia 325 2023 Active 2023 68513 32041 5 Once daily By Mouth False Linezolid 600 mg tablet [generic] 600 mg By Mouth Every 12 hours For MRSA INFECTION L BKA 600 mg 08/25 Inactiv e 2023 89529 35445 1 Every 12 hours By Mouth False Cefpodoxime 200 mg tablet [generic] 400 mg By Mouth Twice daily For MRSA INFECTION L BKA 400 mg 08/25 Inactiv e 2023 90666 15813 0 Twice daily By Mouth False Coenzyme Q10 100 mg tablet [generic] 100 mg By Mouth Once daily For SUPP 100 mg 2023 Active 2023 47068 82934 0 Once daily By Mouth False Levothyroxi ne 50 mcg tablet [generic] 50mcg By Mouth Once daily For hypothyroidis m 50mcg 2023 Active 2023 00678 10403 0 Once daily By Mouth False One A Day Men Complete 240 mcg-25 mcg-300 mcg tablet 1 tab By Mouth Once daily For supplement 1 tab 2023 Active 2023 15053 95145 1 Once daily By Mouth False Cholecalcif adalberto (vitamin D3) 50 mcg (2,000 unit) tablet [generic] 1 TAB By Mouth Once daily For SUPP 1 TAB 2023 Active 2023 55729 06542 1 Once daily By Mouth False Cetirizine 10 mg tablet [generic] 1 TAB By Mouth At bedtime For Allergies 1 TAB 2023 Active 2023 39872 91798 0 At bedtime By Mouth False Timolol maleate 0.25 % eye drops [generic] 1 drop Both Eyes Twice daily For glaucoma 1 drop 2023 Active 2023 16274 71736 5 Twice daily Both Eyes False Alendronate 35 mg tablet [generic] 35mg By Mouth Every week For SIADH 35mg 2023 Active 2023 62739 77321 5 Every week By Mouth False Lantus Solostar U-100 Insulin 100 unit/mL (3 mL) subcutaneou s pen 18 units Subcutaneous Every morning For DIABETES 18 units 08/25 Inactiv e 2023 35498 67558 0 Every morning Subcut aneous False Lantus Solostar U-100 Insulin 100 unit/mL (3 mL) subcutaneou s pen 18 units Subcutaneous Every morning For DIABETES 18 units 2023 Active 2023 10465 0 Every morning Subcut aneous False Linezolid 600 mg tablet [generic] 600 mg By Mouth Every 12 hours For MRSA INFECTION L BKA 600 mg 2023 Active 2023 52307 90156 1 Every 12 hours By Mouth False [...] one-time order For Diabetes 2023 Active 2023 26494 69548 9 4 times a day Subcut aneous False Cefpodoxime 200 mg tablet [generic] 400 mg By Mouth Twice daily For MRSA INFECTION L BKA 400 mg 2023 Active 2023 53551 59794 0 Twice daily By Mouth False Brimonidine 0.1 % eye drops [generic] 1 drop Both Eyes Twice daily For glaucoma 1 drop 2023 Active 2023 22999 05178 0 Twice daily Both Eyes False Metoprolol succinate ER 50 mg tablet,exte nded release 24 hr [generic] 50 mg By Mouth Once daily HOLD FOR SBP <100, or pulse <60 For HTN 50 mg 2023 Active 2023 57853 83901 1 Once daily By Mouth False Amlodipine 2.5 mg tablet [generic] 2.5 mg By Mouth Once daily For HTN 2.5 mg 2023 Active 2023 01055 56603 5 Once daily By Mouth False Docusate sodium 100 mg capsule [generic] 100mg By Mouth Twice daily as needed For constipation HOLD FOR LOOSE STOOLS 100mg 2023 Active 2023 74373 08236 1 Twice daily as needed By Mouth False Atorvastati n 40 mg tablet [generic] 40mg By Mouth Once daily For HDL 40mg 08/26 Inactiv e 2023 65349 35426 5 Once daily By Mouth False Tylenol 325 mg tablet 2 tabs By Mouth Every 4 hours as needed For Pain DO NOT EXCEED 3000 MG APAP/24 Hours 2 tabs 2023 Active 2023 37730 09369 0 Every 4 hours as needed By Mouth False Tylenol 325 mg tablet 2 tabs By Mouth Every 4 hours as needed For Fever >100 DO NOT EXCEED 3000 MG APAP/24 Hours 2 tabs 2023 Active 2023 85252 15438 0 Every 4 hours as needed By Mouth False Dulcolax (bisacodyl) 10 mg rectal suppository One Suppository per rectum PRN if Milk of Magnisia ineffective. Give on day 5 of no BM 1 sup 2023 Active 2023 11632 21002 1 Daily as needed Rectal False Fleet Enema 19 gram-7 gram/118 mL Administer per rectum PRN one time if dulcolax suppository not effective. Give on day 6 of no BM 1 2023 Active 2023 01691 38949 6 Daily as needed Rectal False Dextrose 50 % in water (D50W) intravenous solution [generic] Dextrose 50% evonne 20-50 ml (slow push) Intravenous if Glucagon not effective after 15 minutes. CALL 911 for ED Evaluation. 50% evonne 2023 Active 2023 06193 42615 9 Intrav enous False Glucagon (HCl) Emergency Kit 1 mg solution for injection Administer Glucagon 1 mg Intramuscular if 15 minutes after GLucose Gel is administered Glucose remains less than 70 1 mg 2023 Active 2023 38439 96309 2 Intram uscula r False Glucose Gel 40 % oral gel [Dextrose] PRN If resident is unable to swallow (with or without symptoms) and Glucose results less than 70 give GLucose 40% Gel 1 tube orally - Recheck Glucose 15 minutes after administratio n. 1 tube 2023 Active 2023 52294 43901 8 By Mouth False Milk of Magnesia 400 mg/5 mL oral suspension [Magnesium hydroxide] PRN 30ml By Mouth Daily as needed for constipation one time daily if no BM, on day 4 of no BM (PRN refer to instructions) For Constipation 30 mL 2023 Active 2023 55891 70931 6 Daily as needed By Mouth False Atorvastati n 40 mg tablet [generic] 08/26 Inactiv e 2023 95822 35212 5 Atorvastati n 40 mg tablet [generic] 40mg By Mouth Once daily For HDL 40mg 2023 Active 2023 53159 66477 5 Once daily By Mouth False VITAL SIGNS Date Time Diastolic blood pressure Systolic blood pressure Body height Body weight Temperature SpO2 Blood Sugar Pulse Respirations 62 8 67.00 mm[Hg] - Sitting 145.00 mm[Hg] - Sitting 98.50 Forehead Scan 96.00 % 81.00/ min 16.00/min 26758 2 67.00 mm[Hg] - Sitting 145.00 mm[Hg] - Sitting 98.50 Tympanic 81.00/ min 16.00/min 75187 004 67731 5 56.00 mm[Hg] - Sitting 142.00 mm[Hg] - Sitting 136.40 NI 100.20 Tympanic 96.00 % 92.00/ min 18.00/min 44024 004 54113 6 42153 004 33307 4 143.00 mg/dL 68575 004 46073 0 97.80 Tympanic 01477 005 56543 7 60.00 mm[Hg] - Sitting 140.00 mm[Hg] - Sitting 98.00 Tympanic 84.00/ min 18.00/min 91014 005 17090 0 63.00 mm[Hg] - Sitting 141.00 mm[Hg] - Sitting 98.20 Tympanic 92.00 % 63.00/ min 16.00/min 59928 005 00159 8 69.00 mm[Hg] - Sitting 106.00 mm[Hg] - Sitting 97.20 Tympanic 60235 005 11332 1 367.00 mg/dL 84182 005 12532 2 97.20 Tympanic 74846 005 95508 4 97.20 Tympanic 72625 005 37269 0 69.00 mm[Hg] - Sitting 106.00 mm[Hg] - Sitting 69.00/ min 22703 005 95801 3 452.00 mg/dL 20350 005 47947 3 452.00 mg/dL
--- OUTSIDE RECORDS SUMMARY | 2024-10-03 11:24 | External Medical Summary | Continuity Of Care Document ---
Author Name Unknown Address [address] [address] Organization [facility] () Care Team Providers Care Automatic Developer Name Role Phone DO Machado Amy Primary Care Provider [phone] Allergies Allergy Reaction Start Date End Date [...] Day 3 0.1 mL 08/29 Active 2023 91151 94970 0 1 time Intrad ermal False Tubersol 5 tub. unit/0.1 mL intradermal injection solution [Tuberculin PPD] 0.1mL Intradermal 1 time For PPD 2nd Step Give 2nd Step PPD Day 1 and Read results Day 3 (schedule 7 days after 1st READ) 0.1mL 09/08 Active 2023 56870 57065 0 1 time Intrad ermal False Humalog [...] order For Diabetes 08/25 Inactiv e 2023 89643 69023 9 4 times a day Subcut aneous False Aspirin 325 mg tablet [generic] 325 By Mouth Twice daily For Anticoagulati on 325 09/25 Active 2023 38809 61634 1 Twice daily By Mouth False Ferrous sulfate 325 mg (65 mg iron) tablet [generic] 325 By Mouth Once daily For anemia 325 2023 Active 2023 84169 75046 5 Once daily By Mouth False Linezolid 600 mg tablet [generic] 600 mg By Mouth Every 12 hours For MRSA INFECTION L BKA 600 mg 08/25 Inactiv e 2023 44177 36825 1 Every 12 hours By Mouth False Cefpodoxime 200 mg tablet [generic] 400 mg By Mouth Twice daily For MRSA INFECTION L BKA 400 mg 08/25 Inactiv e 2023 92472 72636 0 Twice daily By Mouth False Coenzyme Q10 100 mg tablet [generic] 100 mg By Mouth Once daily For SUPP 100 mg 2023 Active 2023 53856 30494 0 Once daily By Mouth False Levothyroxi ne 50 mcg tablet [generic] 50mcg By Mouth Once daily For hypothyroidis m 50mcg 2023 Active 2023 09648 02219 0 Once daily By Mouth False One A Day Men Complete 240 mcg-25 mcg-300 mcg tablet 1 tab By Mouth Once daily For supplement 1 tab 2023 Active 2023 18079 05949 1 Once daily By Mouth False Cholecalcif adalberto (vitamin D3) 50 mcg (2,000 unit) tablet [generic] 1 TAB By Mouth Once daily For SUPP 1 TAB 2023 Active 2023 60586 63391 1 Once daily By Mouth False Cetirizine 10 mg tablet [generic] 1 TAB By Mouth At bedtime For Allergies 1 TAB 2023 Active 2023 66154 00050 0 At bedtime By Mouth False Timolol maleate 0.25 % eye drops [generic] 1 drop Both Eyes Twice daily For glaucoma 1 drop 2023 Active 2023 86134 88922 5 Twice daily Both Eyes False Alendronate 35 mg tablet [generic] 35mg By Mouth Every week For SIADH 35mg 2023 Active 2023 51336 21571 5 Every week By Mouth False Lantus Solostar U-100 Insulin 100 unit/mL (3 mL) subcutaneou s pen 18 units Subcutaneous Every morning For DIABETES 18 units 08/25 Inactiv e 2023 73665 29760 0 Every morning Subcut aneous False Lantus Solostar U-100 Insulin 100 unit/mL (3 mL) subcutaneou s pen 18 units Subcutaneous Every morning For DIABETES 18 units 2023 Active 2023 72739 0 Every morning Subcut aneous False Linezolid 600 mg tablet [generic] 600 mg By Mouth Every 12 hours For MRSA INFECTION L BKA 600 mg 2023 Active 2023 19091 46215 1 Every 12 hours By Mouth False [...] one-time order For Diabetes 2023 Active 2023 65790 91191 9 4 times a day Subcut aneous False Cefpodoxime 200 mg tablet [generic] 400 mg By Mouth Twice daily For MRSA INFECTION L BKA 400 mg 2023 Active 2023 67965 56797 0 Twice daily By Mouth False Brimonidine 0.1 % eye drops [generic] 1 drop Both Eyes Twice daily For glaucoma 1 drop 2023 Active 2023 30602 41649 0 Twice daily Both Eyes False Metoprolol succinate ER 50 mg tablet,exte nded release 24 hr [generic] 50 mg By Mouth Once daily HOLD FOR SBP <100, or pulse <60 For HTN 50 mg 2023 Active 2023 63027 92942 1 Once daily By Mouth False Amlodipine 2.5 mg tablet [generic] 2.5 mg By Mouth Once daily For HTN 2.5 mg 2023 Active 2023 69557 05084 5 Once daily By Mouth False Docusate sodium 100 mg capsule [generic] 100mg By Mouth Twice daily as needed For constipation HOLD FOR LOOSE STOOLS 100mg 2023 Active 2023 73213 59258 1 Twice daily as needed By Mouth False Atorvastati n 40 mg tablet [generic] 40mg By Mouth Once daily For HDL 40mg 08/26 Inactiv e 2023 82566 12425 5 Once daily By Mouth False Tylenol 325 mg tablet 2 tabs By Mouth Every 4 hours as needed For Pain DO NOT EXCEED 3000 MG APAP/24 Hours 2 tabs 2023 Active 2023 85089 57242 0 Every 4 hours as needed By Mouth False Tylenol 325 mg tablet 2 tabs By Mouth Every 4 hours as needed For Fever >100 DO NOT EXCEED 3000 MG APAP/24 Hours 2 tabs 2023 Active 2023 60258 25163 0 Every 4 hours as needed By Mouth False Dulcolax (bisacodyl) 10 mg rectal suppository One Suppository per rectum PRN if Milk of Magnisia ineffective. Give on day 5 of no BM 1 sup 2023 Active 2023 58603 42699 1 Daily as needed Rectal False Fleet Enema 19 gram-7 gram/118 mL Administer per rectum PRN one time if dulcolax suppository not effective. Give on day 6 of no BM 1 2023 Active 2023 96842 18588 6 Daily as needed Rectal False Dextrose 50 % in water (D50W) intravenous solution [generic] Dextrose 50% evonne 20-50 ml (slow push) Intravenous if Glucagon not effective after 15 minutes. CALL 911 for ED Evaluation. 50% evonne 2023 Active 2023 51487 24305 9 Intrav enous False Glucagon (HCl) Emergency Kit 1 mg solution for injection Administer Glucagon 1 mg Intramuscular if 15 minutes after GLucose Gel is administered Glucose remains less than 70 1 mg 2023 Active 2023 49432 30566 2 Intram uscula r False Glucose Gel 40 % oral gel [Dextrose] PRN If resident is unable to swallow (with or without symptoms) and Glucose results less than 70 give GLucose 40% Gel 1 tube orally - Recheck Glucose 15 minutes after administratio n. 1 tube 2023 Active 2023 97971 43799 8 By Mouth False Milk of Magnesia 400 mg/5 mL oral suspension [Magnesium hydroxide] PRN 30ml By Mouth Daily as needed for constipation one time daily if no BM, on day 4 of no BM (PRN refer to instructions) For Constipation 30 mL 2023 Active 2023 63441 47772 6 Daily as needed By Mouth False Atorvastati n 40 mg tablet [generic] 08/26 Inactiv e 2023 71864 44006 5 Atorvastati n 40 mg tablet [generic] 40mg By Mouth Once daily For HDL 40mg 2023 Active 2023 85265 71504 5 Once daily By Mouth False Insulin aspart (U-100) 100 unit/mL (3 mL) subcutaneou s pen [generic] 15 units Subcutaneous 1 time For dm 15 units 08/26 Inactiv e 2023 12772 03235 5 1 time Subcut aneous False Humalog KwikPen (U-100) Insulin 100 unit/mL subcutaneou s 15 units Subcutaneous 1 time For dm 15 units 08/27 Active 2023 51927 46276 9 1 time Subcut aneous False MediHoney HCS 4 1/2in X 4 1/2in bandage Cleanse area with NSS, apply one medihoney hydrocolloid dressing, non adherent dressing, kerlix secure with paper tape daily. For wound stage III 1 2023 0000 /0000 Active 2023 99019 20732 1 Once daily Topica l False VITAL SIGNS Date Time Diastolic blood pressure Systolic blood pressure Body height Body weight Temperature SpO2 Blood Sugar Pulse Respirations 004 60483 8 67.00 mm[Hg] - Sitting 145.00 mm[Hg] - Sitting 98.50 Forehead Scan 96.00 % 81.00/ min 16.00/min 32349 004 87890 2 67.00 mm[Hg] - Sitting 145.00 mm[Hg] - Sitting 98.50 Tympanic 81.00/ min 16.00/min 68297 004 17746 5 56.00 mm[Hg] - Sitting 142.00 mm[Hg] - Sitting 136.40 NI 100.20 Tympanic 96.00 % 92.00/ min 18.00/min 97050 004 17850 6 27278 004 33089 4 143.00 mg/dL 87613 004 44855 0 97.80 Tympanic 85763 005 29549 7 60.00 mm[Hg] - Sitting 140.00 mm[Hg] - Sitting 98.00 Tympanic 84.00/ min 18.00/min 57127 005 86667 0 63.00 mm[Hg] - Sitting 141.00 mm[Hg] - Sitting 98.20 Tympanic 92.00 % 63.00/ min 16.00/min 76186 005 63084 8 69.00 mm[Hg] - Sitting 106.00 mm[Hg] - Sitting 97.20 Tympanic 95774 005 56056 7 69.00/ min 16.00/min 54153 005 44974 1 367.00 mg/dL 24768 005 34627 2 97.20 Tympanic 98512 005 13916 4 97.20 Tympanic 66834 005 37094 0 69.00 mm[Hg] - Sitting 106.00 mm[Hg] - Sitting 69.00/ min 95178 005 01792 3 452.00 mg/dL 29213 005 57464 3 452.00 mg/dL 20054 005 64222 5 352.00 mg/dL 88957 005 96779 3 352.00 mg/dL
--- OUTSIDE RECORDS SUMMARY | 2024-10-03 11:24 | External Medical Summary | Continuity Of Care Document ---
Author Name Unknown Address [address] [address] Organization [facility] () Care Team Providers Care Chha Name Role Phone DO Machado Amy Primary Care Provider [phone] Allergies Allergy Reaction Start Date End Date [...] Day 3 0.1 mL 08/29 Active 2023 58074 79554 0 1 time Intrad ermal False Tubersol 5 tub. unit/0.1 mL intradermal injection solution [Tuberculin PPD] 0.1mL Intradermal 1 time For PPD 2nd Step Give 2nd Step PPD Day 1 and Read results Day 3 (schedule 7 days after 1st READ) 0.1mL 09/08 Active 2023 67971 16096 0 1 time Intrad ermal False Humalog [...] order For Diabetes 08/25 Inactiv e 2023 55103 88389 9 4 times a day Subcut aneous False Aspirin 325 mg tablet [generic] 325 By Mouth Twice daily For Anticoagulati on 325 09/25 Active 2023 80974 99014 1 Twice daily By Mouth False Ferrous sulfate 325 mg (65 mg iron) tablet [generic] 325 By Mouth Once daily For anemia 325 2023 Active 2023 42758 34355 5 Once daily By Mouth False Linezolid 600 mg tablet [generic] 600 mg By Mouth Every 12 hours For MRSA INFECTION L BKA 600 mg 08/25 Inactiv e 2023 79428 18587 1 Every 12 hours By Mouth False Cefpodoxime 200 mg tablet [generic] 400 mg By Mouth Twice daily For MRSA INFECTION L BKA 400 mg 08/25 Inactiv e 2023 16023 54105 0 Twice daily By Mouth False Coenzyme Q10 100 mg tablet [generic] 100 mg By Mouth Once daily For SUPP 100 mg 2023 Active 2023 80287 36537 0 Once daily By Mouth False Levothyroxi ne 50 mcg tablet [generic] 50mcg By Mouth Once daily For hypothyroidis m 50mcg 2023 Active 2023 90680 87870 0 Once daily By Mouth False One A Day Men Complete 240 mcg-25 mcg-300 mcg tablet 1 tab By Mouth Once daily For supplement 1 tab 2023 Active 2023 63769 10292 1 Once daily By Mouth False Cholecalcif adalberto (vitamin D3) 50 mcg (2,000 unit) tablet [generic] 1 TAB By Mouth Once daily For SUPP 1 TAB 2023 Active 2023 06907 06411 1 Once daily By Mouth False Cetirizine 10 mg tablet [generic] 1 TAB By Mouth At bedtime For Allergies 1 TAB 2023 Active 2023 89910 30697 0 At bedtime By Mouth False Timolol maleate 0.25 % eye drops [generic] 1 drop Both Eyes Twice daily For glaucoma 1 drop 2023 Active 2023 83643 50798 5 Twice daily Both Eyes False Alendronate 35 mg tablet [generic] 35mg By Mouth Every week For SIADH 35mg 2023 Active 2023 22490 30222 5 Every week By Mouth False Lantus Solostar U-100 Insulin 100 unit/mL (3 mL) subcutaneou s pen 18 units Subcutaneous Every morning For DIABETES 18 units 08/25 Inactiv e 2023 56282 28842 0 Every morning Subcut aneous False Lantus Solostar U-100 Insulin 100 unit/mL (3 mL) subcutaneou s pen 18 units Subcutaneous Every morning For DIABETES 18 units 2023 Active 2023 98384 0 Every morning Subcut aneous False Linezolid 600 mg tablet [generic] 600 mg By Mouth Every 12 hours For MRSA INFECTION L BKA 600 mg 2023 Active 2023 30830 89024 1 Every 12 hours By Mouth False [...] one-time order For Diabetes 2023 Active 2023 77803 10275 9 4 times a day Subcut aneous False Cefpodoxime 200 mg tablet [generic] 400 mg By Mouth Twice daily For MRSA INFECTION L BKA 400 mg 2023 Active 2023 01522 23935 0 Twice daily By Mouth False Brimonidine 0.1 % eye drops [generic] 1 drop Both Eyes Twice daily For glaucoma 1 drop 2023 Active 2023 54934 71871 0 Twice daily Both Eyes False Metoprolol succinate ER 50 mg tablet,exte nded release 24 hr [generic] 50 mg By Mouth Once daily HOLD FOR SBP <100, or pulse <60 For HTN 50 mg 2023 Active 2023 81350 88349 1 Once daily By Mouth False Amlodipine 2.5 mg tablet [generic] 2.5 mg By Mouth Once daily For HTN 2.5 mg 2023 Active 2023 75078 58912 5 Once daily By Mouth False Docusate sodium 100 mg capsule [generic] 100mg By Mouth Twice daily as needed For constipation HOLD FOR LOOSE STOOLS 100mg 2023 Active 2023 84643 74563 1 Twice daily as needed By Mouth False Atorvastati n 40 mg tablet [generic] 40mg By Mouth Once daily For HDL 40mg 2023 Active 2023 93476 54491 5 Once daily By Mouth False Tylenol 325 mg tablet 2 tabs By Mouth Every 4 hours as needed For Pain DO NOT EXCEED 3000 MG APAP/24 Hours 2 tabs 2023 Active 2023 19188 23378 0 Every 4 hours as needed By Mouth False Tylenol 325 mg tablet 2 tabs By Mouth Every 4 hours as needed For Fever >100 DO NOT EXCEED 3000 MG APAP/24 Hours 2 tabs 2023 Active 2023 97733 95151 0 Every 4 hours as needed By Mouth False Dulcolax (bisacodyl) 10 mg rectal suppository One Suppository per rectum PRN if Milk of Magnisia ineffective. Give on day 5 of no BM 1 sup 2023 Active 2023 97101 39865 1 Daily as needed Rectal False Fleet Enema 19 gram-7 gram/118 mL Administer per rectum PRN one time if dulcolax suppository not effective. Give on day 6 of no BM 1 2023 Active 2023 22921 65959 6 Daily as needed Rectal False Dextrose 50 % in water (D50W) intravenous solution [generic] Dextrose 50% evonne 20-50 ml (slow push) Intravenous if Glucagon not effective after 15 minutes. CALL 911 for ED Evaluation. 50% evonne 2023 Active 2023 59639 36912 9 Intrav enous False Glucagon (HCl) Emergency Kit 1 mg solution for injection Administer Glucagon 1 mg Intramuscular if 15 minutes after GLucose Gel is administered Glucose remains less than 70 1 mg 2023 Active 2023 75319 65367 2 Intram uscula r False Glucose Gel 40 % oral gel [Dextrose] PRN If resident is unable to swallow (with or without symptoms) and Glucose results less than 70 give GLucose 40% Gel 1 tube orally - Recheck Glucose 15 minutes after administratio n. 1 tube 2023 Active 2023 69901 63387 8 By Mouth False Milk of Magnesia 400 mg/5 mL oral suspension [Magnesium hydroxide] PRN 30ml By Mouth Daily as needed for constipation one time daily if no BM, on day 4 of no BM (PRN refer to instructions) For Constipation 30 mL 2023 Active 2023 26609 31010 6 Daily as needed By Mouth False VITAL SIGNS Date Time Diastolic blood pressure Systolic blood pressure Body height Body weight Temperature SpO2 Blood Sugar Pulse Respirations 48428 8 67.00 mm[Hg] - Sitting 145.00 mm[Hg] - Sitting 98.50 Forehead Scan 96.00 % 81.00/ min 16.00/min 81786 2 67.00 mm[Hg] - Sitting 145.00 mm[Hg] - Sitting 98.50 Tympanic 81.00/ min 16.00/min 62281 5 56.00 mm[Hg] - Sitting 142.00 mm[Hg] - Sitting 136.40 NI 100.20 Tympanic 96.00 % 92.00/ min 18.00/min
--- OUTSIDE RECORDS SUMMARY | 2024-10-03 11:24 | External Medical Summary | Continuity Of Care Document ---
Author Name Unknown Address [address] [address] Organization [facility] () Care Team Providers Care Cementer Machine Name Role Phone DO Machado Amy Primary Care Provider [phone] Allergies Allergy Reaction Start Date End Date [...] Day 3 0.1 mL 08/29 Active 2023 86407 74931 0 1 time Intrad ermal False Tubersol 5 tub. unit/0.1 mL intradermal injection solution [Tuberculin PPD] 0.1mL Intradermal 1 time For PPD 2nd Step Give 2nd Step PPD Day 1 and Read results Day 3 (schedule 7 days after 1st READ) 0.1mL 09/08 Active 2023 81249 89344 0 1 time Intrad ermal False Humalog [...] order For Diabetes 08/25 Inactiv e 2023 37045 60674 9 4 times a day Subcut aneous False Aspirin 325 mg tablet [generic] 325 By Mouth Twice daily For Anticoagulati on 325 09/25 Active 2023 63877 81591 1 Twice daily By Mouth False Ferrous sulfate 325 mg (65 mg iron) tablet [generic] 325 By Mouth Once daily For anemia 325 2023 Active 2023 72339 42782 5 Once daily By Mouth False Linezolid 600 mg tablet [generic] 600 mg By Mouth Every 12 hours For MRSA INFECTION L BKA 600 mg 08/25 Inactiv e 2023 60981 27173 1 Every 12 hours By Mouth False Cefpodoxime 200 mg tablet [generic] 400 mg By Mouth Twice daily For MRSA INFECTION L BKA 400 mg 08/25 Inactiv e 2023 39761 77753 0 Twice daily By Mouth False Coenzyme Q10 100 mg tablet [generic] 100 mg By Mouth Once daily For SUPP 100 mg 2023 Active 2023 76646 36177 0 Once daily By Mouth False Levothyroxi ne 50 mcg tablet [generic] 50mcg By Mouth Once daily For hypothyroidis m 50mcg 2023 Active 2023 16184 10300 0 Once daily By Mouth False One A Day Men Complete 240 mcg-25 mcg-300 mcg tablet 1 tab By Mouth Once daily For supplement 1 tab 2023 Active 2023 64947 27517 1 Once daily By Mouth False Cholecalcif adalberto (vitamin D3) 50 mcg (2,000 unit) tablet [generic] 1 TAB By Mouth Once daily For SUPP 1 TAB 2023 Active 2023 74420 74734 1 Once daily By Mouth False Cetirizine 10 mg tablet [generic] 1 TAB By Mouth At bedtime For Allergies 1 TAB 2023 Active 2023 22480 02393 0 At bedtime By Mouth False Timolol maleate 0.25 % eye drops [generic] 1 drop Both Eyes Twice daily For glaucoma 1 drop 2023 Active 2023 34767 48351 5 Twice daily Both Eyes False Alendronate 35 mg tablet [generic] 35mg By Mouth Every week For SIADH 35mg 2023 Active 2023 58764 27158 5 Every week By Mouth False Lantus Solostar U-100 Insulin 100 unit/mL (3 mL) subcutaneou s pen 18 units Subcutaneous Every morning For DIABETES 18 units 08/25 Inactiv e 2023 17028 79442 0 Every morning Subcut aneous False Lantus Solostar U-100 Insulin 100 unit/mL (3 mL) subcutaneou s pen 18 units Subcutaneous Every morning For DIABETES 18 units 2023 Active 2023 86176 0 Every morning Subcut aneous False Linezolid 600 mg tablet [generic] 600 mg By Mouth Every 12 hours For MRSA INFECTION L BKA 600 mg 2023 Active 2023 89436 61125 1 Every 12 hours By Mouth False [...] one-time order For Diabetes 2023 Active 2023 51611 85825 9 4 times a day Subcut aneous False Cefpodoxime 200 mg tablet [generic] 400 mg By Mouth Twice daily For MRSA INFECTION L BKA 400 mg 2023 Active 2023 72058 03154 0 Twice daily By Mouth False Brimonidine 0.1 % eye drops [generic] 1 drop Both Eyes Twice daily For glaucoma 1 drop 2023 Active 2023 88088 32380 0 Twice daily Both Eyes False Metoprolol succinate ER 50 mg tablet,exte nded release 24 hr [generic] 50 mg By Mouth Once daily HOLD FOR SBP <100, or pulse <60 For HTN 50 mg 2023 Active 2023 10773 84357 1 Once daily By Mouth False Amlodipine 2.5 mg tablet [generic] 2.5 mg By Mouth Once daily For HTN 2.5 mg 2023 Active 2023 45160 85447 5 Once daily By Mouth False Docusate sodium 100 mg capsule [generic] 100mg By Mouth Twice daily as needed For constipation HOLD FOR LOOSE STOOLS 100mg 2023 Active 2023 02295 86684 1 Twice daily as needed By Mouth False Atorvastati n 40 mg tablet [generic] 40mg By Mouth Once daily For HDL 40mg 08/26 Inactiv e 2023 79440 00493 5 Once daily By Mouth False Tylenol 325 mg tablet 2 tabs By Mouth Every 4 hours as needed For Pain DO NOT EXCEED 3000 MG APAP/24 Hours 2 tabs 2023 Active 2023 30316 37465 0 Every 4 hours as needed By Mouth False Tylenol 325 mg tablet 2 tabs By Mouth Every 4 hours as needed For Fever >100 DO NOT EXCEED 3000 MG APAP/24 Hours 2 tabs 2023 Active 2023 29828 93281 0 Every 4 hours as needed By Mouth False Dulcolax (bisacodyl) 10 mg rectal suppository One Suppository per rectum PRN if Milk of Magnisia ineffective. Give on day 5 of no BM 1 sup 2023 Active 2023 61691 87818 1 Daily as needed Rectal False Fleet Enema 19 gram-7 gram/118 mL Administer per rectum PRN one time if dulcolax suppository not effective. Give on day 6 of no BM 1 2023 Active 2023 84611 06886 6 Daily as needed Rectal False Dextrose 50 % in water (D50W) intravenous solution [generic] Dextrose 50% evonne 20-50 ml (slow push) Intravenous if Glucagon not effective after 15 minutes. CALL 911 for ED Evaluation. 50% evonne 2023 Active 2023 62245 01692 9 Intrav enous False Glucagon (HCl) Emergency Kit 1 mg solution for injection Administer Glucagon 1 mg Intramuscular if 15 minutes after GLucose Gel is administered Glucose remains less than 70 1 mg 2023 Active 2023 46658 46660 2 Intram uscula r False Glucose Gel 40 % oral gel [Dextrose] PRN If resident is unable to swallow (with or without symptoms) and Glucose results less than 70 give GLucose 40% Gel 1 tube orally - Recheck Glucose 15 minutes after administratio n. 1 tube 2023 Active 2023 32637 46993 8 By Mouth False Milk of Magnesia 400 mg/5 mL oral suspension [Magnesium hydroxide] PRN 30ml By Mouth Daily as needed for constipation one time daily if no BM, on day 4 of no BM (PRN refer to instructions) For Constipation 30 mL 2023 Active 2023 66249 12089 6 Daily as needed By Mouth False Atorvastati n 40 mg tablet [generic] 08/26 Inactiv e 2023 28512 39244 5 Atorvastati n 40 mg tablet [generic] 40mg By Mouth Once daily For HDL 40mg 2023 Active 2023 78826 29105 5 Once daily By Mouth False VITAL SIGNS Date Time Diastolic blood pressure Systolic blood pressure Body height Body weight Temperature SpO2 Blood Sugar Pulse Respirations 62 8 67.00 mm[Hg] - Sitting 145.00 mm[Hg] - Sitting 98.50 Forehead Scan 96.00 % 81.00/ min 16.00/min 19460 2 67.00 mm[Hg] - Sitting 145.00 mm[Hg] - Sitting 98.50 Tympanic 81.00/ min 16.00/min 87187 004 61428 5 56.00 mm[Hg] - Sitting 142.00 mm[Hg] - Sitting 136.40 NI 100.20 Tympanic 96.00 % 92.00/ min 18.00/min 93761 004 94272 6 09093 004 68642 4 143.00 mg/dL 88860 004 59661 0 97.80 Tympanic 43879 005 87185 7 60.00 mm[Hg] - Sitting 140.00 mm[Hg] - Sitting 98.00 Tympanic 84.00/ min 18.00/min 43089 005 52534 0 63.00 mm[Hg] - Sitting 141.00 mm[Hg] - Sitting 98.20 Tympanic 92.00 % 63.00/ min 16.00/min 93608 005 24934 8 69.00 mm[Hg] - Sitting 106.00 mm[Hg] - Sitting 97.20 Tympanic 52338 005 56404 1 367.00 mg/dL 81709 005 93065 2 97.20 Tympanic 27468 005 03901 4 97.20 Tympanic 66716 005 74680 0 69.00 mm[Hg] - Sitting 106.00 mm[Hg] - Sitting 69.00/ min 92251 005 61424 3 452.00 mg/dL 67116 005 55805 3 452.00 mg/dL
--- OUTSIDE RECORDS SUMMARY | 2024-10-03 11:24 | External Medical Summary | Continuity Of Care Document ---
Author Name Unknown Address [address] [address] Organization [facility] () Care Team Providers Care Rubber Mixer Name Role Phone DO Machado Amy Primary Care Provider [phone] Allergies Allergy Reaction Start Date End Date [...] Day 3 0.1 mL 08/29 Active 2023 71785 53868 0 1 time Intrad ermal False Tubersol 5 tub. unit/0.1 mL intradermal injection solution [Tuberculin PPD] 0.1mL Intradermal 1 time For PPD 2nd Step Give 2nd Step PPD Day 1 and Read results Day 3 (schedule 7 days after 1st READ) 0.1mL 09/08 Active 2023 54090 62090 0 1 time Intrad ermal False Humalog [...] order For Diabetes 08/25 Inactiv e 2023 79772 54274 9 4 times a day Subcut aneous False Aspirin 325 mg tablet [generic] 325 By Mouth Twice daily For Anticoagulati on 325 09/25 Active 2023 08076 15080 1 Twice daily By Mouth False Ferrous sulfate 325 mg (65 mg iron) tablet [generic] 325 By Mouth Once daily For anemia 325 2023 Active 2023 25174 42115 5 Once daily By Mouth False Linezolid 600 mg tablet [generic] 600 mg By Mouth Every 12 hours For MRSA INFECTION L BKA 600 mg 08/25 Inactiv e 2023 84326 66907 1 Every 12 hours By Mouth False Cefpodoxime 200 mg tablet [generic] 400 mg By Mouth Twice daily For MRSA INFECTION L BKA 400 mg 08/25 Inactiv e 2023 30827 62537 0 Twice daily By Mouth False Coenzyme Q10 100 mg tablet [generic] 100 mg By Mouth Once daily For SUPP 100 mg 2023 Active 2023 48078 97658 0 Once daily By Mouth False Levothyroxi ne 50 mcg tablet [generic] 50mcg By Mouth Once daily For hypothyroidis m 50mcg 2023 Active 2023 12643 10860 0 Once daily By Mouth False One A Day Men Complete 240 mcg-25 mcg-300 mcg tablet 1 tab By Mouth Once daily For supplement 1 tab 2023 Active 2023 94606 15768 1 Once daily By Mouth False Cholecalcif adalbetro (vitamin D3) 50 mcg (2,000 unit) tablet [generic] 1 TAB By Mouth Once daily For SUPP 1 TAB 2023 Active 2023 22265 67530 1 Once daily By Mouth False Cetirizine 10 mg tablet [generic] 1 TAB By Mouth At bedtime For Allergies 1 TAB 2023 Active 2023 52070 78605 0 At bedtime By Mouth False Timolol maleate 0.25 % eye drops [generic] 1 drop Both Eyes Twice daily For glaucoma 1 drop 2023 Active 2023 88143 13711 5 Twice daily Both Eyes False Alendronate 35 mg tablet [generic] 35mg By Mouth Every week For SIADH 35mg 2023 Active 2023 83078 27520 5 Every week By Mouth False Lantus Solostar U-100 Insulin 100 unit/mL (3 mL) subcutaneou s pen 18 units Subcutaneous Every morning For DIABETES 18 units 08/25 Inactiv e 2023 37440 69946 0 Every morning Subcut aneous False Lantus Solostar U-100 Insulin 100 unit/mL (3 mL) subcutaneou s pen 18 units Subcutaneous Every morning For DIABETES 18 units 2023 Active 2023 19651 0 Every morning Subcut aneous False Linezolid 600 mg tablet [generic] 600 mg By Mouth Every 12 hours For MRSA INFECTION L BKA 600 mg 2023 Active 2023 75593 14463 1 Every 12 hours By Mouth False [...] one-time order For Diabetes 2023 Active 2023 96823 85575 9 4 times a day Subcut aneous False Cefpodoxime 200 mg tablet [generic] 400 mg By Mouth Twice daily For MRSA INFECTION L BKA 400 mg 2023 Active 2023 97554 29541 0 Twice daily By Mouth False Brimonidine 0.1 % eye drops [generic] 1 drop Both Eyes Twice daily For glaucoma 1 drop 2023 Active 2023 21968 95359 0 Twice daily Both Eyes False Metoprolol succinate ER 50 mg tablet,exte nded release 24 hr [generic] 50 mg By Mouth Once daily HOLD FOR SBP <100, or pulse <60 For HTN 50 mg 2023 Active 2023 31242 76510 1 Once daily By Mouth False Amlodipine 2.5 mg tablet [generic] 2.5 mg By Mouth Once daily For HTN 2.5 mg 2023 Active 2023 23320 39515 5 Once daily By Mouth False Docusate sodium 100 mg capsule [generic] 100mg By Mouth Twice daily as needed For constipation HOLD FOR LOOSE STOOLS 100mg 2023 Active 2023 04018 63444 1 Twice daily as needed By Mouth False Atorvastati n 40 mg tablet [generic] 40mg By Mouth Once daily For HDL 40mg 08/26 Inactiv e 2023 63936 41463 5 Once daily By Mouth False Tylenol 325 mg tablet 2 tabs By Mouth Every 4 hours as needed For Pain DO NOT EXCEED 3000 MG APAP/24 Hours 2 tabs 2023 Active 2023 53440 23594 0 Every 4 hours as needed By Mouth False Tylenol 325 mg tablet 2 tabs By Mouth Every 4 hours as needed For Fever >100 DO NOT EXCEED 3000 MG APAP/24 Hours 2 tabs 2023 Active 2023 75673 90818 0 Every 4 hours as needed By Mouth False Dulcolax (bisacodyl) 10 mg rectal suppository One Suppository per rectum PRN if Milk of Magnisia ineffective. Give on day 5 of no BM 1 sup 2023 Active 2023 61151 09952 1 Daily as needed Rectal False Fleet Enema 19 gram-7 gram/118 mL Administer per rectum PRN one time if dulcolax suppository not effective. Give on day 6 of no BM 1 2023 Active 2023 76688 34626 6 Daily as needed Rectal False Dextrose 50 % in water (D50W) intravenous solution [generic] Dextrose 50% evonne 20-50 ml (slow push) Intravenous if Glucagon not effective after 15 minutes. CALL 911 for ED Evaluation. 50% evonne 2023 Active 2023 19765 96945 9 Intrav enous False Glucagon (HCl) Emergency Kit 1 mg solution for injection Administer Glucagon 1 mg Intramuscular if 15 minutes after GLucose Gel is administered Glucose remains less than 70 1 mg 2023 Active 2023 10298 07890 2 Intram uscula r False Glucose Gel 40 % oral gel [Dextrose] PRN If resident is unable to swallow (with or without symptoms) and Glucose results less than 70 give GLucose 40% Gel 1 tube orally - Recheck Glucose 15 minutes after administratio n. 1 tube 2023 Active 2023 06635 48302 8 By Mouth False Milk of Magnesia 400 mg/5 mL oral suspension [Magnesium hydroxide] PRN 30ml By Mouth Daily as needed for constipation one time daily if no BM, on day 4 of no BM (PRN refer to instructions) For Constipation 30 mL 2023 Active 2023 44999 57459 6 Daily as needed By Mouth False Atorvastati n 40 mg tablet [generic] 08/26 Inactiv e 2023 84643 37922 5 Atorvastati n 40 mg tablet [generic] 40mg By Mouth Once daily For HDL 40mg 2023 Active 2023 04593 34515 5 Once daily By Mouth False Insulin aspart (U-100) 100 unit/mL (3 mL) subcutaneou s pen [generic] 15 units Subcutaneous 1 time For dm 15 units 08/27 Active 2023 90535 00091 5 1 time Subcut aneous False MediHoney HCS 4 1/2in X 4 1/2in bandage Cleanse area with NSS, apply one medihoney hydrocolloid dressing, non adherent dressing, kerlix secure with paper tape daily. For wound stage III 1 10/06/ 2024 00/00 /0000 Active 2023 67314 90317 1 Once daily Topica l False VITAL SIGNS Date Time Diastolic blood pressure Systolic blood pressure Body height Body weight Temperature SpO2 Blood Sugar Pulse Respirations 32128 8 67.00 mm[Hg] - Sitting 145.00 mm[Hg] - Sitting 98.50 Forehead Scan 96.00 % 81.00/ min 16.00/min 004 02764 2 67.00 mm[Hg] - Sitting 145.00 mm[Hg] - Sitting 98.50 Tympanic 81.00/ min 16.00/min 92738 004 06190 5 56.00 mm[Hg] - Sitting 142.00 mm[Hg] - Sitting 136.40 NI 100.20 Tympanic 96.00 % 92.00/ min 18.00/min 02364 004 81637 6 34284 004 88837 4 143.00 mg/dL 11396 004 78823 0 97.80 Tympanic 61643 005 60249 7 60.00 mm[Hg] - Sitting 140.00 mm[Hg] - Sitting 98.00 Tympanic 84.00/ min 18.00/min 84148 005 59697 0 63.00 mm[Hg] - Sitting 141.00 mm[Hg] - Sitting 98.20 Tympanic 92.00 % 63.00/ min 16.00/min 37536 005 47504 8 69.00 mm[Hg] - Sitting 106.00 mm[Hg] - Sitting 97.20 Tympanic 20510 005 79739 7 69.00/ min 16.00/min 64944 005 67210 1 367.00 mg/dL 20999 005 98958 2 97.20 Tympanic 23249 005 35080 4 97.20 Tympanic 80503 005 11316 0 69.00 mm[Hg] - Sitting 106.00 mm[Hg] - Sitting 69.00/ min 20684 005 51262 3 452.00 mg/dL 32596 005 74679 3 452.00 mg/dL
--- OUTSIDE RECORDS SUMMARY | 2024-10-03 11:24 | External Medical Summary | Continuity Of Care Document ---
Author Name Unknown Address [address] [address] Organization [facility] () Care Team Providers Care Director Of Maternity Services Name Role Phone DO Machado Amy Primary Care Provider [phone] Allergies Allergy Reaction Start Date End Date [...] one-time order For Diabetes 2023 Active 2023 73774 36132 9 4 times a day Subcut aneous False Aspirin 325 mg tablet [generic] 325 By Mouth Twice daily For Anticoagulati on 325 09/25 Active 2023 22817 12707 1 Twice daily By Mouth False Ferrous sulfate 325 mg (65 mg iron) tablet [generic] 325 By Mouth Once daily For anemia 325 2023 Active 2023 43042 86517 5 Once daily By Mouth False Linezolid 600 mg tablet [generic] 600 mg By Mouth Every 12 hours For MRSA INFECTION L BKA 600 mg 09/06 Active 2023 00513 21572 1 Every 12 hours By Mouth False Cefpodoxime 200 mg tablet [generic] 400 mg By Mouth Twice daily For MRSA INFECTION L BKA 400 mg 08/31 Active 2023 18274 97168 0 Twice daily By Mouth False Coenzyme Q10 100 mg tablet [generic] 100 mg By Mouth Once daily For SUPP 100 mg 2023 Active 2023 95251 71032 0 Once daily By Mouth False Levothyroxi ne 50 mcg tablet [generic] 50mcg By Mouth Once daily For hypothyroidis m 50mcg 2023 Active 2023 82504 60373 0 Once daily By Mouth False One A Day Men Complete 240 mcg-25 mcg-300 mcg tablet 1 tab By Mouth Once daily For supplement 1 tab 2023 Active 2023 70048 82953 1 Once daily By Mouth False Cholecalcif adalberto (vitamin D3) 50 mcg (2,000 unit) tablet [generic] 1 TAB By Mouth Once daily For SUPP 1 TAB 2023 Active 2023 11179 08346 1 Once daily By Mouth False Cetirizine 10 mg tablet [generic] 1 TAB By Mouth At bedtime For Allergies 1 TAB 2023 Active 2023 32664 20310 0 At bedtime By Mouth False Timolol maleate 0.25 % eye drops [generic] 1 drop Both Eyes Twice daily For glaucoma 1 drop 2023 Active 2023 72021 00671 5 Twice daily Both Eyes False Alendronate 35 mg tablet [generic] 35mg By Mouth Every week For SIADH 35mg 2023 Active 2023 19867 64196 5 Every week By Mouth False Lantus Solostar U-100 Insulin 100 unit/mL (3 mL) subcutaneou s pen 18 units Subcutaneous Every morning For DIABETES 18 units 08/25 Inactiv e 2023 93973 40722 0 Every morning Subcut aneous False Lantus Solostar U-100 Insulin 100 unit/mL (3 mL) subcutaneou s pen 18 units Subcutaneous Every morning For DIABETES 18 units 2023 Active 2023 01197 37603 0 Every morning Subcut aneous False VITAL SIGNS Date Time Diastolic blood pressure Systolic blood pressure Body height Body weight Temperature SpO2 Blood Sugar Pulse Respirations 79026 8 67.00 mm[Hg] - Sitting 145.00 mm[Hg] - Sitting 98.50 Forehead Scan 96.00 % 81.00/ min 16.00/min 98074 2 67.00 mm[Hg] - Sitting 145.00 mm[Hg] - Sitting 98.50 Tympanic 81.00/ min 16.00/min 63537 5 56.00 mm[Hg] - Sitting 142.00 mm[Hg] - Sitting 136.40 NI 100.20 Tympanic 96.00 % 92.00/ min 18.00/min
--- OUTSIDE RECORDS SUMMARY | 2024-10-03 11:24 | External Medical Summary | Continuity Of Care Document ---
Author Name Unknown Address [address] [address] Organization [facility] () Care Team Providers Care Retail Performance Coach Name Role Phone DO Machado Amy Primary Care Provider [phone] Allergies Allergy Reaction Start Date End Date [...] Day 3 0.1 mL 08/29 Active 2023 17808 88627 0 1 time Intrad ermal False Tubersol 5 tub. unit/0.1 mL intradermal injection solution [Tuberculin PPD] 0.1mL Intradermal 1 time For PPD 2nd Step Give 2nd Step PPD Day 1 and Read results Day 3 (schedule 7 days after 1st READ) 0.1mL 09/08 Active 2023 70948 41432 0 1 time Intrad ermal False Humalog [...] order For Diabetes 08/25 Inactiv e 2023 49880 35810 9 4 times a day Subcut aneous False Aspirin 325 mg tablet [generic] 325 By Mouth Twice daily For Anticoagulati on 325 09/25 Active 2023 02492 79552 1 Twice daily By Mouth False Ferrous sulfate 325 mg (65 mg iron) tablet [generic] 325 By Mouth Once daily For anemia 325 2023 Active 2023 74893 66696 5 Once daily By Mouth False Linezolid 600 mg tablet [generic] 600 mg By Mouth Every 12 hours For MRSA INFECTION L BKA 600 mg 08/25 Inactiv e 2023 04374 57521 1 Every 12 hours By Mouth False Cefpodoxime 200 mg tablet [generic] 400 mg By Mouth Twice daily For MRSA INFECTION L BKA 400 mg 08/25 Inactiv e 2023 37801 37800 0 Twice daily By Mouth False Coenzyme Q10 100 mg tablet [generic] 100 mg By Mouth Once daily For SUPP 100 mg 2023 Active 2023 80887 80270 0 Once daily By Mouth False Levothyroxi ne 50 mcg tablet [generic] 50mcg By Mouth Once daily For hypothyroidis m 50mcg 2023 Active 2023 99235 39458 0 Once daily By Mouth False One A Day Men Complete 240 mcg-25 mcg-300 mcg tablet 1 tab By Mouth Once daily For supplement 1 tab 2023 Active 2023 85297 03620 1 Once daily By Mouth False Cholecalcif adalberto (vitamin D3) 50 mcg (2,000 unit) tablet [generic] 1 TAB By Mouth Once daily For SUPP 1 TAB 2023 Active 2023 42564 80953 1 Once daily By Mouth False Cetirizine 10 mg tablet [generic] 1 TAB By Mouth At bedtime For Allergies 1 TAB 2023 Active 2023 74032 17963 0 At bedtime By Mouth False Timolol maleate 0.25 % eye drops [generic] 1 drop Both Eyes Twice daily For glaucoma 1 drop 2023 Active 2023 59773 04886 5 Twice daily Both Eyes False Alendronate 35 mg tablet [generic] 35mg By Mouth Every week For SIADH 35mg 2023 Active 2023 96880 39677 5 Every week By Mouth False Lantus Solostar U-100 Insulin 100 unit/mL (3 mL) subcutaneou s pen 18 units Subcutaneous Every morning For DIABETES 18 units 08/25 Inactiv e 2023 72699 26484 0 Every morning Subcut aneous False Lantus Solostar U-100 Insulin 100 unit/mL (3 mL) subcutaneou s pen 18 units Subcutaneous Every morning For DIABETES 18 units 2023 Active 2023 38743 0 Every morning Subcut aneous False Linezolid 600 mg tablet [generic] 600 mg By Mouth Every 12 hours For MRSA INFECTION L BKA 600 mg 2023 Active 2023 86778 75956 1 Every 12 hours By Mouth False [...] one-time order For Diabetes 2023 Active 2023 46669 81170 9 4 times a day Subcut aneous False Cefpodoxime 200 mg tablet [generic] 400 mg By Mouth Twice daily For MRSA INFECTION L BKA 400 mg 2023 Active 2023 09991 95378 0 Twice daily By Mouth False Brimonidine 0.1 % eye drops [generic] 1 drop Both Eyes Twice daily For glaucoma 1 drop 2023 Active 2023 56467 76703 0 Twice daily Both Eyes False Metoprolol succinate ER 50 mg tablet,exte nded release 24 hr [generic] 50 mg By Mouth Once daily HOLD FOR SBP <100, or pulse <60 For HTN 50 mg 2023 Active 2023 04396 14379 1 Once daily By Mouth False Amlodipine 2.5 mg tablet [generic] 2.5 mg By Mouth Once daily For HTN 2.5 mg 2023 Active 2023 86860 90878 5 Once daily By Mouth False Docusate sodium 100 mg capsule [generic] 100mg By Mouth Twice daily as needed For constipation HOLD FOR LOOSE STOOLS 100mg 2023 Active 2023 21886 60879 1 Twice daily as needed By Mouth False Atorvastati n 40 mg tablet [generic] 40mg By Mouth Once daily For HDL 40mg 2023 Active 2023 87170 66499 5 Once daily By Mouth False Tylenol 325 mg tablet 2 tabs By Mouth Every 4 hours as needed For Pain DO NOT EXCEED 3000 MG APAP/24 Hours 2 tabs 2023 Active 2023 46434 35367 0 Every 4 hours as needed By Mouth False Tylenol 325 mg tablet 2 tabs By Mouth Every 4 hours as needed For Fever >100 DO NOT EXCEED 3000 MG APAP/24 Hours 2 tabs 2023 Active 2023 51825 20845 0 Every 4 hours as needed By Mouth False Dulcolax (bisacodyl) 10 mg rectal suppository One Suppository per rectum PRN if Milk of Magnisia ineffective. Give on day 5 of no BM 1 sup 2023 Active 2023 91447 73499 1 Daily as needed Rectal False Fleet Enema 19 gram-7 gram/118 mL Administer per rectum PRN one time if dulcolax suppository not effective. Give on day 6 of no BM 1 2023 Active 2023 80518 38703 6 Daily as needed Rectal False Dextrose 50 % in water (D50W) intravenous solution [generic] Dextrose 50% evonne 20-50 ml (slow push) Intravenous if Glucagon not effective after 15 minutes. CALL 911 for ED Evaluation. 50% evonne 2023 Active 2023 68473 08491 9 Intrav enous False Glucagon (HCl) Emergency Kit 1 mg solution for injection Administer Glucagon 1 mg Intramuscular if 15 minutes after GLucose Gel is administered Glucose remains less than 70 1 mg 2023 Active 2023 36381 82426 2 Intram uscula r False Glucose Gel 40 % oral gel [Dextrose] PRN If resident is unable to swallow (with or without symptoms) and Glucose results less than 70 give GLucose 40% Gel 1 tube orally - Recheck Glucose 15 minutes after administratio n. 1 tube 2023 Active 2023 48362 60483 8 By Mouth False Milk of Magnesia 400 mg/5 mL oral suspension [Magnesium hydroxide] PRN 30ml By Mouth Daily as needed for constipation one time daily if no BM, on day 4 of no BM (PRN refer to instructions) For Constipation 30 mL 2023 Active 2023 24734 87306 6 Daily as needed By Mouth False VITAL SIGNS Date Time Diastolic blood pressure Systolic blood pressure Body height Body weight Temperature SpO2 Blood Sugar Pulse Respirations 32488 8 67.00 mm[Hg] - Sitting 145.00 mm[Hg] - Sitting 98.50 Forehead Scan 96.00 % 81.00/ min 16.00/min 02801 2 67.00 mm[Hg] - Sitting 145.00 mm[Hg] - Sitting 98.50 Tympanic 81.00/ min 16.00/min 26212 5 56.00 mm[Hg] - Sitting 142.00 mm[Hg] - Sitting 136.40 NI 100.20 Tympanic 96.00 % 92.00/ min 18.00/min 91 6 4 143.00 mg/dL 0 97.80 Tympanic
--- OUTSIDE RECORDS SUMMARY | 2024-10-03 11:24 | External Medical Summary | Continuity Of Care Document ---
Author Name Unknown Address [address] [address] Organization [facility] () Care Team Providers Care Graphics Programmer Name Role Phone DO Machado Amy Primary Care Provider [phone] Allergies Allergy Reaction Start Date End Date [...] order For Diabetes 08/25 Inactiv e 2023 21925 89143 9 4 times a day Subcut aneous False Aspirin 325 mg tablet [generic] 325 By Mouth Twice daily For Anticoagulati on 325 09/25 Active 2023 88331 20012 1 Twice daily By Mouth False Ferrous sulfate 325 mg (65 mg iron) tablet [generic] 325 By Mouth Once daily For anemia 325 2023 0000 0000 Active 2023 96953 27748 5 Once daily By Mouth False Linezolid 600 mg tablet [generic] 600 mg By Mouth Every 12 hours For MRSA INFECTION L BKA 600 mg 08/25 Inactiv e 2023 41577 20922 1 Every 12 hours By Mouth False Cefpodoxime 200 mg tablet [generic] 400 mg By Mouth Twice daily For MRSA INFECTION L BKA 400 mg 08/25 Inactiv e 2023 03946 97107 0 Twice daily By Mouth False Coenzyme Q10 100 mg tablet [generic] 100 mg By Mouth Once daily For SUPP 100 mg 2023 Active 2023 44965 66985 0 Once daily By Mouth False Levothyroxi ne 50 mcg tablet [generic] 50mcg By Mouth Once daily For hypothyroidis m 50mcg 2023 Active 2023 79649 22161 0 Once daily By Mouth False One A Day Men Complete 240 mcg-25 mcg-300 mcg tablet 1 tab By Mouth Once daily For supplement 1 tab 2023 Active 2023 39108 95796 1 Once daily By Mouth False Cholecalcif adalberto (vitamin D3) 50 mcg (2,000 unit) tablet [generic] 1 TAB By Mouth Once daily For SUPP 1 TAB 2023 Active 2023 52305 06184 1 Once daily By Mouth False Cetirizine 10 mg tablet [generic] 1 TAB By Mouth At bedtime For Allergies 1 TAB 2023 Active 2023 81727 83078 0 At bedtime By Mouth False Timolol maleate 0.25 % eye drops [generic] 1 drop Both Eyes Twice daily For glaucoma 1 drop 2023 Active 2023 18313 74822 5 Twice daily Both Eyes False Alendronate 35 mg tablet [generic] 35mg By Mouth Every week For SIADH 35mg 2023 Active 2023 01124 01550 5 Every week By Mouth False Lantus Solostar U-100 Insulin 100 unit/mL (3 mL) subcutaneou s pen 18 units Subcutaneous Every morning For DIABETES 18 units 08/25 Inactiv e 2023 40732 06937 0 Every morning Subcut aneous False Lantus Solostar U-100 Insulin 100 unit/mL (3 mL) subcutaneou s pen 18 units Subcutaneous Every morning For DIABETES 18 units 2023 Active 2023 66024 57582 0 Every morning Subcut aneous False Linezolid 600 mg tablet [generic] 600 mg By Mouth Every 12 hours For MRSA INFECTION L BKA 600 mg 2023 Active 2023 87910 65121 1 Every 12 hours By Mouth False [...] one-time order For Diabetes 2023 Active 20232 57098 9 4 times a day Subcut aneous False Cefpodoxime 200 mg tablet [generic] 400 mg By Mouth Twice daily For MRSA INFECTION L BKA 400 mg 2023 Active 2023 41109 32730 0 Twice daily By Mouth False Brimonidine 0.1 % eye drops [generic] 1 drop Both Eyes Twice daily For glaucoma 1 drop 2023 Active 2023 93281 18524 0 Twice daily Both Eyes False Metoprolol succinate ER 50 mg tablet,exte nded release 24 hr [generic] 50 mg By Mouth Once daily HOLD FOR SBP <100, or pulse <60 For HTN 50 mg 2023 Active 2023 07416 55170 1 Once daily By Mouth False VITAL SIGNS Date Time Diastolic blood pressure Systolic blood pressure Body height Body weight Temperature SpO2 Blood Sugar Pulse Respirations 91895 8 67.00 mm[Hg] - Sitting 145.00 mm[Hg] - Sitting 98.50 Forehead Scan 96.00 % 81.00/ min 16.00/min 18895 2 67.00 mm[Hg] - Sitting 145.00 mm[Hg] - Sitting 98.50 Tympanic 81.00/ min 16.00/min 23 5 56.00 mm[Hg] - Sitting 142.00 mm[Hg] - Sitting 136.40 NI 100.20 Tympanic 96.00 % 92.00/ min 18.00/min
--- OUTSIDE RECORDS SUMMARY | 2024-10-03 11:24 | External Medical Summary | Continuity Of Care Document ---
Author Name Unknown Address [address] [address] Organization [facility] () Care Team Providers Care Metal Trades Instructor Name Role Phone DO Machado Amy Primary Care Provider [phone] Allergies Allergy Reaction Start Date End Date [...] order For Diabetes 08/25 Inactiv e 2023 50340 88151 9 4 times a day Subcut aneous False Aspirin 325 mg tablet [generic] 325 By Mouth Twice daily For Anticoagulati on 325 09/25 Active 2023 74055 54094 1 Twice daily By Mouth False Ferrous sulfate 325 mg (65 mg iron) tablet [generic] 325 By Mouth Once daily For anemia 325 2023 0000 0000 Active 2023 40604 84341 5 Once daily By Mouth False Linezolid 600 mg tablet [generic] 600 mg By Mouth Every 12 hours For MRSA INFECTION L BKA 600 mg 08/25 Inactiv e 2023 71176 67490 1 Every 12 hours By Mouth False Cefpodoxime 200 mg tablet [generic] 400 mg By Mouth Twice daily For MRSA INFECTION L BKA 400 mg 08/25 Inactiv e 2023 40497 38840 0 Twice daily By Mouth False Coenzyme Q10 100 mg tablet [generic] 100 mg By Mouth Once daily For SUPP 100 mg 2023 Active 2023 03406 71387 0 Once daily By Mouth False Levothyroxi ne 50 mcg tablet [generic] 50mcg By Mouth Once daily For hypothyroidis m 50mcg 2023 Active 2023 40017 93455 0 Once daily By Mouth False One A Day Men Complete 240 mcg-25 mcg-300 mcg tablet 1 tab By Mouth Once daily For supplement 1 tab 2023 Active 2023 18420 22812 1 Once daily By Mouth False Cholecalcif adalberto (vitamin D3) 50 mcg (2,000 unit) tablet [generic] 1 TAB By Mouth Once daily For SUPP 1 TAB 2023 Active 2023 37112 62758 1 Once daily By Mouth False Cetirizine 10 mg tablet [generic] 1 TAB By Mouth At bedtime For Allergies 1 TAB 2023 Active 2023 36196 77733 0 At bedtime By Mouth False Timolol maleate 0.25 % eye drops [generic] 1 drop Both Eyes Twice daily For glaucoma 1 drop 2023 Active 2023 32749 13460 5 Twice daily Both Eyes False Alendronate 35 mg tablet [generic] 35mg By Mouth Every week For SIADH 35mg 2023 Active 2023 26586 41200 5 Every week By Mouth False Lantus Solostar U-100 Insulin 100 unit/mL (3 mL) subcutaneou s pen 18 units Subcutaneous Every morning For DIABETES 18 units 08/25 Inactiv e 2023 33729 09047 0 Every morning Subcut aneous False Lantus Solostar U-100 Insulin 100 unit/mL (3 mL) subcutaneou s pen 18 units Subcutaneous Every morning For DIABETES 18 units 2023 Active 2023 57755 65572 0 Every morning Subcut aneous False Linezolid 600 mg tablet [generic] 600 mg By Mouth Every 12 hours For MRSA INFECTION L BKA 600 mg 2023 Active 2023 44494 43487 1 Every 12 hours By Mouth False [...] one-time order For Diabetes 2023 Active 20232 56592 9 4 times a day Subcut aneous False Cefpodoxime 200 mg tablet [generic] 400 mg By Mouth Twice daily For MRSA INFECTION L BKA 400 mg 2023 Active 2023 41950 45462 0 Twice daily By Mouth False Brimonidine 0.1 % eye drops [generic] 1 drop Both Eyes Twice daily For glaucoma 1 drop 2023 Active 2023 86885 72268 0 Twice daily Both Eyes False Metoprolol succinate ER 50 mg tablet,exte nded release 24 hr [generic] 50 mg By Mouth Once daily HOLD FOR SBP <100, or pulse <60 For HTN 50 mg 2023 Active 2023 27877 79026 1 Once daily By Mouth False Amlodipine 2.5 mg tablet [generic] 2.5 mg By Mouth Once daily For HTN 2.5 mg 2023 Active 2023 06749 58239 5 Once daily By Mouth False Docusate sodium 100 mg capsule [generic] 100mg By Mouth Twice daily as needed For constipation HOLD FOR LOOSE STOOLS 100mg 2023 Active 2023 28658 23096 1 Twice daily as needed By Mouth False Atorvastati n 40 mg tablet [generic] 40mg By Mouth Once daily For HDL 40mg 2023 00/00 /0000 Active 2023 91810 10249 5 Once daily By Mouth False VITAL SIGNS Date Time Diastolic blood pressure Systolic blood pressure Body height Body weight Temperature SpO2 Blood Sugar Pulse Respirations 8 67.00 mm[Hg] - Sitting 145.00 mm[Hg] - Sitting 98.50 Forehead Scan 96.00 % 81.00/ min 16.00/min 23469 2 67.00 mm[Hg] - Sitting 145.00 mm[Hg] - Sitting 98.50 Tympanic 81.00/ min 16.00/min 06716 5 56.00 mm[Hg] - Sitting 142.00 mm[Hg] - Sitting 136.40 NI 100.20 Tympanic 96.00 % 92.00/ min 18.00/min
--- OUTSIDE RECORDS SUMMARY | 2024-10-03 11:24 | External Medical Summary | Continuity Of Care Document ---
Author Name Unknown Address [address] [facility] () Care Team Providers Care Weaver [place] Name Role Phone DO Machado Amy Primary Care Provider [phone] Allergies Allergy Reaction Start Date End Date [...] Day 3 0.1 mL 08/29 Active 2023 77101 36936 0 1 time Intrad ermal False Tubersol 5 tub. unit/0.1 mL intradermal injection solution [Tuberculin PPD] 0.1mL Intradermal 1 time For PPD 2nd Step Give 2nd Step PPD Day 1 and Read results Day 3 (schedule 7 days after 1st READ) 0.1mL 09/08 Active 2023 50972 12443 0 1 time Intrad ermal False Humalog [...] order For Diabetes 08/25 Inactiv e 2023 62089 06659 9 4 times a day Subcut aneous False Aspirin 325 mg tablet [generic] 325 By Mouth Twice daily For Anticoagulati on 325 09/25 Active 2023 16139 62892 1 Twice daily By Mouth False Ferrous sulfate 325 mg (65 mg iron) tablet [generic] 325 By Mouth Once daily For anemia 325 2023 Active 2023 44225 67449 5 Once daily By Mouth False Linezolid 600 mg tablet [generic] 600 mg By Mouth Every 12 hours For MRSA INFECTION L BKA 600 mg 08/25 Inactiv e 2023 21430 13176 1 Every 12 hours By Mouth False Cefpodoxime 200 mg tablet [generic] 400 mg By Mouth Twice daily For MRSA INFECTION L BKA 400 mg 08/25 Inactiv e 2023 69189 58039 0 Twice daily By Mouth False Coenzyme Q10 100 mg tablet [generic] 100 mg By Mouth Once daily For SUPP 100 mg 2023 Active 2023 56604 10839 0 Once daily By Mouth False Levothyroxi ne 50 mcg tablet [generic] 50mcg By Mouth Once daily For hypothyroidis m 50mcg 2023 Active 2023 61648 20634 0 Once daily By Mouth False One A Day Men Complete 240 mcg-25 mcg-300 mcg tablet 1 tab By Mouth Once daily For supplement 1 tab 2023 Active 2023 48985 28826 1 Once daily By Mouth False Cholecalcif adalberto (vitamin D3) 50 mcg (2,000 unit) tablet [generic] 1 TAB By Mouth Once daily For SUPP 1 TAB 2023 Active 2023 03854 46621 1 Once daily By Mouth False Cetirizine 10 mg tablet [generic] 1 TAB By Mouth At bedtime For Allergies 1 TAB 2023 Active 2023 50341 35001 0 At bedtime By Mouth False Timolol maleate 0.25 % eye drops [generic] 1 drop Both Eyes Twice daily For glaucoma 1 drop 2023 Active 2023 62241 69519 5 Twice daily Both Eyes False Alendronate 35 mg tablet [generic] 35mg By Mouth Every week For SIADH 35mg 2023 Active 2023 07229 45473 5 Every week By Mouth False Lantus Solostar U-100 Insulin 100 unit/mL (3 mL) subcutaneou s pen 18 units Subcutaneous Every morning For DIABETES 18 units 08/25 Inactiv e 2023 87745 38230 0 Every morning Subcut aneous False Lantus Solostar U-100 Insulin 100 unit/mL (3 mL) subcutaneou s pen 18 units Subcutaneous Every morning For DIABETES 18 units 2023 Active 2023 74377 0 Every morning Subcut aneous False Linezolid 600 mg tablet [generic] 600 mg By Mouth Every 12 hours For MRSA INFECTION L BKA 600 mg 2023 Active 2023 38874 61525 1 Every 12 hours By Mouth False [...] one-time order For Diabetes 2023 Active 2023 96409 68528 9 4 times a day Subcut aneous False Cefpodoxime 200 mg tablet [generic] 400 mg By Mouth Twice daily For MRSA INFECTION L BKA 400 mg 2023 Active 2023 59680 67305 0 Twice daily By Mouth False Brimonidine 0.1 % eye drops [generic] 1 drop Both Eyes Twice daily For glaucoma 1 drop 2023 Active 2023 92458 34644 0 Twice daily Both Eyes False Metoprolol succinate ER 50 mg tablet,exte nded release 24 hr [generic] 50 mg By Mouth Once daily HOLD FOR SBP <100, or pulse <60 For HTN 50 mg 2023 Active 2023 85443 72940 1 Once daily By Mouth False Amlodipine 2.5 mg tablet [generic] 2.5 mg By Mouth Once daily For HTN 2.5 mg 2023 Active 2023 51303 39004 5 Once daily By Mouth False Docusate sodium 100 mg capsule [generic] 100mg By Mouth Twice daily as needed For constipation HOLD FOR LOOSE STOOLS 100mg 2023 Active 2023 19822 29397 1 Twice daily as needed By Mouth False Atorvastati n 40 mg tablet [generic] 40mg By Mouth Once daily For HDL 40mg 2023 Active 2023 92357 54754 5 Once daily By Mouth False Tylenol 325 mg tablet 2 tabs By Mouth Every 4 hours as needed For Pain DO NOT EXCEED 3000 MG APAP/24 Hours 2 tabs 2023 Active 2023 37986 01147 0 Every 4 hours as needed By Mouth False Tylenol 325 mg tablet 2 tabs By Mouth Every 4 hours as needed For Fever >100 DO NOT EXCEED 3000 MG APAP/24 Hours 2 tabs 2023 Active 2023 83785 96704 0 Every 4 hours as needed By Mouth False Dulcolax (bisacodyl) 10 mg rectal suppository One Suppository per rectum PRN if Milk of Magnisia ineffective. Give on day 5 of no BM 1 sup 2023 Active 2023 28631 22957 1 Daily as needed Rectal False Fleet Enema 19 gram-7 gram/118 mL Administer per rectum PRN one time if dulcolax suppository not effective. Give on day 6 of no BM 1 2023 Active 2023 85559 83337 6 Daily as needed Rectal False Dextrose 50 % in water (D50W) intravenous solution [generic] Dextrose 50% evonne 20-50 ml (slow push) Intravenous if Glucagon not effective after 15 minutes. CALL 911 for ED Evaluation. 50% evonne 2023 Active 2023 24678 81040 9 Intrav enous False Glucagon (HCl) Emergency Kit 1 mg solution for injection Administer Glucagon 1 mg Intramuscular if 15 minutes after GLucose Gel is administered Glucose remains less than 70 1 mg 2023 Active 2023 26022 32986 2 Intram uscula r False Glucose Gel 40 % oral gel [Dextrose] PRN If resident is unable to swallow (with or without symptoms) and Glucose results less than 70 give GLucose 40% Gel 1 tube orally - Recheck Glucose 15 minutes after administratio n. 1 tube 2023 Active 2023 16913 83751 8 By Mouth False Milk of Magnesia 400 mg/5 mL oral suspension [Magnesium hydroxide] PRN 30ml By Mouth Daily as needed for constipation one time daily if no BM, on day 4 of no BM (PRN refer to instructions) For Constipation 30 mL 2023 Active 2023 64426 21646 6 Daily as needed By Mouth False VITAL SIGNS Date Time Diastolic blood pressure Systolic blood pressure Body height Body weight Temperature SpO2 Blood Sugar Pulse Respirations 08088 8 67.00 mm[Hg] - Sitting 145.00 mm[Hg] - Sitting 98.50 Forehead Scan 96.00 % 81.00/ min 16.00/min 77749 2 67.00 mm[Hg] - Sitting 145.00 mm[Hg] - Sitting 98.50 Tympanic 81.00/ min 16.00/min 53826 5 56.00 mm[Hg] - Sitting 142.00 mm[Hg] - Sitting 136.40 NI 100.20 Tympanic 96.00 % 92.00/ min 18.00/min 91 6 4 143.00 mg/dL 0 97.80 Tympanic
--- OUTSIDE RECORDS SUMMARY | 2024-10-03 11:25 | External Medical Summary | Continuity Of Care Document ---
Author Name Unknown Address [address] [address] Organization [facility] () Care Team Providers Care Frame Repairer Name Role Phone DO Machado Amy Primary Care Provider [phone] Allergies Allergy Reaction Start Date End Date [...] Day 3 0.1 mL 08/29 Active 2023 09602 20954 0 1 time Intrad ermal False Tubersol 5 tub. unit/0.1 mL intradermal injection solution [Tuberculin PPD] 0.1mL Intradermal 1 time For PPD 2nd Step Give 2nd Step PPD Day 1 and Read results Day 3 (schedule 7 days after 1st READ) 0.1mL 09/08 Active 2023 10141 42320 0 1 time Intrad ermal False Humalog [...] order For Diabetes 08/25 Inactiv e 2023 35748 65723 9 4 times a day Subcut aneous False Aspirin 325 mg tablet [generic] 325 By Mouth Twice daily For Anticoagulati on 325 09/25 Active 2023 38673 66632 1 Twice daily By Mouth False Ferrous sulfate 325 mg (65 mg iron) tablet [generic] 325 By Mouth Once daily For anemia 325 2023 Active 2023 41423 83516 5 Once daily By Mouth False Linezolid 600 mg tablet [generic] 600 mg By Mouth Every 12 hours For MRSA INFECTION L BKA 600 mg 08/25 Inactiv e 2023 27734 87040 1 Every 12 hours By Mouth False Cefpodoxime 200 mg tablet [generic] 400 mg By Mouth Twice daily For MRSA INFECTION L BKA 400 mg 08/25 Inactiv e 2023 69494 95881 0 Twice daily By Mouth False Coenzyme Q10 100 mg tablet [generic] 100 mg By Mouth Once daily For SUPP 100 mg 2023 Active 2023 82901 69793 0 Once daily By Mouth False Levothyroxi ne 50 mcg tablet [generic] 50mcg By Mouth Once daily For hypothyroidis m 50mcg 2023 Active 2023 46544 66257 0 Once daily By Mouth False One A Day Men Complete 240 mcg-25 mcg-300 mcg tablet 1 tab By Mouth Once daily For supplement 1 tab 2023 Active 2023 18845 44085 1 Once daily By Mouth False Cholecalcif adalberto (vitamin D3) 50 mcg (2,000 unit) tablet [generic] 1 TAB By Mouth Once daily For SUPP 1 TAB 2023 Active 2023 04265 63041 1 Once daily By Mouth False Cetirizine 10 mg tablet [generic] 1 TAB By Mouth At bedtime For Allergies 1 TAB 2023 Active 2023 42667 28546 0 At bedtime By Mouth False Timolol maleate 0.25 % eye drops [generic] 1 drop Both Eyes Twice daily For glaucoma 1 drop 2023 Active 2023 75895 56055 5 Twice daily Both Eyes False Alendronate 35 mg tablet [generic] 35mg By Mouth Every week For SIADH 35mg 2023 Active 2023 45501 86226 5 Every week By Mouth False Lantus Solostar U-100 Insulin 100 unit/mL (3 mL) subcutaneou s pen 18 units Subcutaneous Every morning For DIABETES 18 units 08/25 Inactiv e 2023 10737 57558 0 Every morning Subcut aneous False Lantus Solostar U-100 Insulin 100 unit/mL (3 mL) subcutaneou s pen 18 units Subcutaneous Every morning For DIABETES 18 units 2023 Active 2023 14113 0 Every morning Subcut aneous False Linezolid 600 mg tablet [generic] 600 mg By Mouth Every 12 hours For MRSA INFECTION L BKA 600 mg 2023 Active 2023 09500 74361 1 Every 12 hours By Mouth False [...] one-time order For Diabetes 2023 Active 2023 31876 65485 9 4 times a day Subcut aneous False Cefpodoxime 200 mg tablet [generic] 400 mg By Mouth Twice daily For MRSA INFECTION L BKA 400 mg 2023 Active 2023 64946 87245 0 Twice daily By Mouth False Brimonidine 0.1 % eye drops [generic] 1 drop Both Eyes Twice daily For glaucoma 1 drop 2023 Active 2023 93625 10147 0 Twice daily Both Eyes False Metoprolol succinate ER 50 mg tablet,exte nded release 24 hr [generic] 50 mg By Mouth Once daily HOLD FOR SBP <100, or pulse <60 For HTN 50 mg 2023 Active 2023 40058 21077 1 Once daily By Mouth False Amlodipine 2.5 mg tablet [generic] 2.5 mg By Mouth Once daily For HTN 2.5 mg 2023 Active 2023 23286 38877 5 Once daily By Mouth False Docusate sodium 100 mg capsule [generic] 100mg By Mouth Twice daily as needed For constipation HOLD FOR LOOSE STOOLS 100mg 2023 Active 2023 53142 49870 1 Twice daily as needed By Mouth False Atorvastati n 40 mg tablet [generic] 40mg By Mouth Once daily For HDL 40mg 08/26 Inactiv e 2023 08409 02623 5 Once daily By Mouth False Tylenol 325 mg tablet 2 tabs By Mouth Every 4 hours as needed For Pain DO NOT EXCEED 3000 MG APAP/24 Hours 2 tabs 2023 Active 2023 66507 51046 0 Every 4 hours as needed By Mouth False Tylenol 325 mg tablet 2 tabs By Mouth Every 4 hours as needed For Fever >100 DO NOT EXCEED 3000 MG APAP/24 Hours 2 tabs 2023 Active 2023 47613 37743 0 Every 4 hours as needed By Mouth False Dulcolax (bisacodyl) 10 mg rectal suppository One Suppository per rectum PRN if Milk of Magnisia ineffective. Give on day 5 of no BM 1 sup 2023 Active 2023 65304 82256 1 Daily as needed Rectal False Fleet Enema 19 gram-7 gram/118 mL Administer per rectum PRN one time if dulcolax suppository not effective. Give on day 6 of no BM 1 2023 Active 2023 56123 13203 6 Daily as needed Rectal False Dextrose 50 % in water (D50W) intravenous solution [generic] Dextrose 50% evonne 20-50 ml (slow push) Intravenous if Glucagon not effective after 15 minutes. CALL 911 for ED Evaluation. 50% evonne 2023 Active 2023 09872 25286 9 Intrav enous False Glucagon (HCl) Emergency Kit 1 mg solution for injection Administer Glucagon 1 mg Intramuscular if 15 minutes after GLucose Gel is administered Glucose remains less than 70 1 mg 2023 Active 2023 45984 13477 2 Intram uscula r False Glucose Gel 40 % oral gel [Dextrose] PRN If resident is unable to swallow (with or without symptoms) and Glucose results less than 70 give GLucose 40% Gel 1 tube orally - Recheck Glucose 15 minutes after administratio n. 1 tube 2023 Active 2023 74436 42902 8 By Mouth False Milk of Magnesia 400 mg/5 mL oral suspension [Magnesium hydroxide] PRN 30ml By Mouth Daily as needed for constipation one time daily if no BM, on day 4 of no BM (PRN refer to instructions) For Constipation 30 mL 2023 Active 2023 70194 92355 6 Daily as needed By Mouth False Atorvastati n 40 mg tablet [generic] 08/26 Inactiv e 2023 86961 93029 5 Atorvastati n 40 mg tablet [generic] 40mg By Mouth Once daily For HDL 40mg 2023 Active 2023 42403 06903 5 Once daily By Mouth False VITAL SIGNS Date Time Diastolic blood pressure Systolic blood pressure Body height Body weight Temperature SpO2 Blood Sugar Pulse Respirations 62 8 67.00 mm[Hg] - Sitting 145.00 mm[Hg] - Sitting 98.50 Forehead Scan 96.00 % 81.00/ min 16.00/min 95988 2 67.00 mm[Hg] - Sitting 145.00 mm[Hg] - Sitting 98.50 Tympanic 81.00/ min 16.00/min 23 5 56.00 mm[Hg] - Sitting 142.00 mm[Hg] - Sitting 136.40 NI 100.20 Tympanic 96.00 % 92.00/ min 18.00/min 74959 004 38011 6 49230 004 79034 4 143.00 mg/dL 004 98442 0 97.80 Tympanic 49168 005 09161 7 60.00 mm[Hg] - Sitting 140.00 mm[Hg] - Sitting 98.00 Tympanic 84.00/ min 18.00/min 12927 005 07566 0 63.00 mm[Hg] - Sitting 141.00 mm[Hg] - Sitting 98.20 Tympanic 92.00 % 63.00/ min 16.00/min 61236 005 14706 1 367.00 mg/dL 21590 005 66245 2 97.20 Tympanic 70273 005 43368 4 97.20 Tympanic 86558 005 03312 0 69.00 mm[Hg] - Sitting 106.00 mm[Hg] - Sitting 69.00/ min
--- OUTSIDE RECORDS SUMMARY | 2024-10-03 11:25 | External Medical Summary | Continuity Of Care Document ---
Author Name Unknown Address [address] [address] Organization [facility] () Care Team Providers Care Melt House Drag Operator Name Role Phone DO Machado Amy Primary Care Provider [phone] Allergies Allergy Reaction Start Date End Date [...] Day 3 0.1 mL 08/29 Active 2023 20737 36027 0 1 time Intrad ermal False Tubersol 5 tub. unit/0.1 mL intradermal injection solution [Tuberculin PPD] 0.1mL Intradermal 1 time For PPD 2nd Step Give 2nd Step PPD Day 1 and Read results Day 3 (schedule 7 days after 1st READ) 0.1mL 09/08 Active 2023 19634 42107 0 1 time Intrad ermal False Humalog [...] order For Diabetes 08/25 Inactiv e 2023 51219 43254 9 4 times a day Subcut aneous False Aspirin 325 mg tablet [generic] 325 By Mouth Twice daily For Anticoagulati on 325 09/25 Active 2023 07517 76303 1 Twice daily By Mouth False Ferrous sulfate 325 mg (65 mg iron) tablet [generic] 325 By Mouth Once daily For anemia 325 2023 Active 2023 61430 68068 5 Once daily By Mouth False Linezolid 600 mg tablet [generic] 600 mg By Mouth Every 12 hours For MRSA INFECTION L BKA 600 mg 08/25 Inactiv e 2023 41860 01552 1 Every 12 hours By Mouth False Cefpodoxime 200 mg tablet [generic] 400 mg By Mouth Twice daily For MRSA INFECTION L BKA 400 mg 08/25 Inactiv e 2023 00461 36214 0 Twice daily By Mouth False Coenzyme Q10 100 mg tablet [generic] 100 mg By Mouth Once daily For SUPP 100 mg 2023 Active 2023 81617 09170 0 Once daily By Mouth False Levothyroxi ne 50 mcg tablet [generic] 50mcg By Mouth Once daily For hypothyroidis m 50mcg 2023 Active 2023 84443 93668 0 Once daily By Mouth False One A Day Men Complete 240 mcg-25 mcg-300 mcg tablet 1 tab By Mouth Once daily For supplement 1 tab 2023 Active 2023 09813 85457 1 Once daily By Mouth False Cholecalcif adalberto (vitamin D3) 50 mcg (2,000 unit) tablet [generic] 1 TAB By Mouth Once daily For SUPP 1 TAB 2023 Active 2023 71718 18856 1 Once daily By Mouth False Cetirizine 10 mg tablet [generic] 1 TAB By Mouth At bedtime For Allergies 1 TAB 2023 Active 2023 76407 10403 0 At bedtime By Mouth False Timolol maleate 0.25 % eye drops [generic] 1 drop Both Eyes Twice daily For glaucoma 1 drop 2023 Active 2023 26653 02704 5 Twice daily Both Eyes False Alendronate 35 mg tablet [generic] 35mg By Mouth Every week For SIADH 35mg 2023 Active 2023 35330 74976 5 Every week By Mouth False Lantus Solostar U-100 Insulin 100 unit/mL (3 mL) subcutaneou s pen 18 units Subcutaneous Every morning For DIABETES 18 units 08/25 Inactiv e 2023 72960 31941 0 Every morning Subcut aneous False Lantus Solostar U-100 Insulin 100 unit/mL (3 mL) subcutaneou s pen 18 units Subcutaneous Every morning For DIABETES 18 units 2023 Active 2023 74130 0 Every morning Subcut aneous False Linezolid 600 mg tablet [generic] 600 mg By Mouth Every 12 hours For MRSA INFECTION L BKA 600 mg 2023 Active 2023 61000 91610 1 Every 12 hours By Mouth False [...] one-time order For Diabetes 2023 Active 2023 01721 32893 9 4 times a day Subcut aneous False Cefpodoxime 200 mg tablet [generic] 400 mg By Mouth Twice daily For MRSA INFECTION L BKA 400 mg 2023 Active 2023 52497 44873 0 Twice daily By Mouth False Brimonidine 0.1 % eye drops [generic] 1 drop Both Eyes Twice daily For glaucoma 1 drop 2023 Active 2023 57089 32467 0 Twice daily Both Eyes False Metoprolol succinate ER 50 mg tablet,exte nded release 24 hr [generic] 50 mg By Mouth Once daily HOLD FOR SBP <100, or pulse <60 For HTN 50 mg 2023 Active 2023 52535 64340 1 Once daily By Mouth False Amlodipine 2.5 mg tablet [generic] 2.5 mg By Mouth Once daily For HTN 2.5 mg 2023 Active 2023 07629 82318 5 Once daily By Mouth False Docusate sodium 100 mg capsule [generic] 100mg By Mouth Twice daily as needed For constipation HOLD FOR LOOSE STOOLS 100mg 2023 Active 2023 48554 29164 1 Twice daily as needed By Mouth False Atorvastati n 40 mg tablet [generic] 40mg By Mouth Once daily For HDL 40mg 2023 Active 2023 34586 44419 5 Once daily By Mouth False Tylenol 325 mg tablet 2 tabs By Mouth Every 4 hours as needed For Pain DO NOT EXCEED 3000 MG APAP/24 Hours 2 tabs 2023 Active 2023 52231 68543 0 Every 4 hours as needed By Mouth False Tylenol 325 mg tablet 2 tabs By Mouth Every 4 hours as needed For Fever >100 DO NOT EXCEED 3000 MG APAP/24 Hours 2 tabs 2023 Active 2023 57614 51079 0 Every 4 hours as needed By Mouth False Dulcolax (bisacodyl) 10 mg rectal suppository One Suppository per rectum PRN if Milk of Magnisia ineffective. Give on day 5 of no BM 1 sup 2023 Active 2023 89609 81302 1 Daily as needed Rectal False Fleet Enema 19 gram-7 gram/118 mL Administer per rectum PRN one time if dulcolax suppository not effective. Give on day 6 of no BM 1 2023 Active 2023 69303 91578 6 Daily as needed Rectal False Dextrose 50 % in water (D50W) intravenous solution [generic] Dextrose 50% evonne 20-50 ml (slow push) Intravenous if Glucagon not effective after 15 minutes. CALL 911 for ED Evaluation. 50% evonne 2023 Active 2023 23245 12373 9 Intrav enous False Glucagon (HCl) Emergency Kit 1 mg solution for injection Administer Glucagon 1 mg Intramuscular if 15 minutes after GLucose Gel is administered Glucose remains less than 70 1 mg 2023 Active 2023 31654 45444 2 Intram uscula r False Glucose Gel 40 % oral gel [Dextrose] PRN If resident is unable to swallow (with or without symptoms) and Glucose results less than 70 give GLucose 40% Gel 1 tube orally - Recheck Glucose 15 minutes after administratio n. 1 tube 2023 Active 2023 35658 77097 8 By Mouth False Milk of Magnesia 400 mg/5 mL oral suspension [Magnesium hydroxide] PRN 30ml By Mouth Daily as needed for constipation one time daily if no BM, on day 4 of no BM (PRN refer to instructions) For Constipation 30 mL 2023 Active 2023 63940 42113 6 Daily as needed By Mouth False VITAL SIGNS Date Time Diastolic blood pressure Systolic blood pressure Body height Body weight Temperature SpO2 Blood Sugar Pulse Respirations 88410 8 67.00 mm[Hg] - Sitting 145.00 mm[Hg] - Sitting 98.50 Forehead Scan 96.00 % 81.00/ min 16.00/min 44540 2 67.00 mm[Hg] - Sitting 145.00 mm[Hg] - Sitting 98.50 Tympanic 81.00/ min 16.00/min 34193 5 56.00 mm[Hg] - Sitting 142.00 mm[Hg] - Sitting 136.40 NI 100.20 Tympanic 96.00 % 92.00/ min 18.00/min
--- OUTSIDE RECORDS SUMMARY | 2024-10-03 11:25 | External Medical Summary | Continuity Of Care Document ---
Author Name Unknown Address [address] [address] Organization [facility] () Care Team Providers Care Auditor Internal Name Role Phone DO Machado Amy Primary Care Provider [phone] Allergies Allergy Reaction Start Date End Date [...] Day 3 0.1 mL 08/29 Active 2023 45269 42632 0 1 time Intrad ermal False Tubersol 5 tub. unit/0.1 mL intradermal injection solution [Tuberculin PPD] 0.1mL Intradermal 1 time For PPD 2nd Step Give 2nd Step PPD Day 1 and Read results Day 3 (schedule 7 days after 1st READ) 0.1mL 09/08 Active 2023 05803 89514 0 1 time Intrad ermal False Humalog [...] order For Diabetes 08/25 Inactiv e 2023 83630 44689 9 4 times a day Subcut aneous False Aspirin 325 mg tablet [generic] 325 By Mouth Twice daily For Anticoagulati on 325 09/25 Active 2023 47164 75776 1 Twice daily By Mouth False Ferrous sulfate 325 mg (65 mg iron) tablet [generic] 325 By Mouth Once daily For anemia 325 2023 Active 2023 11972 21554 5 Once daily By Mouth False Linezolid 600 mg tablet [generic] 600 mg By Mouth Every 12 hours For MRSA INFECTION L BKA 600 mg 08/25 Inactiv e 2023 28198 57413 1 Every 12 hours By Mouth False Cefpodoxime 200 mg tablet [generic] 400 mg By Mouth Twice daily For MRSA INFECTION L BKA 400 mg 08/25 Inactiv e 2023 24091 13710 0 Twice daily By Mouth False Coenzyme Q10 100 mg tablet [generic] 100 mg By Mouth Once daily For SUPP 100 mg 2023 Active 2023 62172 49845 0 Once daily By Mouth False Levothyroxi ne 50 mcg tablet [generic] 50mcg By Mouth Once daily For hypothyroidis m 50mcg 2023 Active 2023 26979 35898 0 Once daily By Mouth False One A Day Men Complete 240 mcg-25 mcg-300 mcg tablet 1 tab By Mouth Once daily For supplement 1 tab 2023 Active 2023 97584 10346 1 Once daily By Mouth False Cholecalcif adalberto (vitamin D3) 50 mcg (2,000 unit) tablet [generic] 1 TAB By Mouth Once daily For SUPP 1 TAB 2023 Active 2023 34094 43759 1 Once daily By Mouth False Cetirizine 10 mg tablet [generic] 1 TAB By Mouth At bedtime For Allergies 1 TAB 2023 Active 2023 37647 47365 0 At bedtime By Mouth False Timolol maleate 0.25 % eye drops [generic] 1 drop Both Eyes Twice daily For glaucoma 1 drop 2023 Active 2023 87065 19902 5 Twice daily Both Eyes False Alendronate 35 mg tablet [generic] 35mg By Mouth Every week For SIADH 35mg 2023 Active 2023 01434 37528 5 Every week By Mouth False Lantus Solostar U-100 Insulin 100 unit/mL (3 mL) subcutaneou s pen 18 units Subcutaneous Every morning For DIABETES 18 units 08/25 Inactiv e 2023 17037 38791 0 Every morning Subcut aneous False Lantus Solostar U-100 Insulin 100 unit/mL (3 mL) subcutaneou s pen 18 units Subcutaneous Every morning For DIABETES 18 units 2023 Active 2023 04907 0 Every morning Subcut aneous False Linezolid 600 mg tablet [generic] 600 mg By Mouth Every 12 hours For MRSA INFECTION L BKA 600 mg 2023 Active 2023 31959 41605 1 Every 12 hours By Mouth False [...] one-time order For Diabetes 2023 Active 2023 42875 47947 9 4 times a day Subcut aneous False Cefpodoxime 200 mg tablet [generic] 400 mg By Mouth Twice daily For MRSA INFECTION L BKA 400 mg 2023 Active 2023 27779 16913 0 Twice daily By Mouth False Brimonidine 0.1 % eye drops [generic] 1 drop Both Eyes Twice daily For glaucoma 1 drop 2023 Active 2023 63680 44470 0 Twice daily Both Eyes False Metoprolol succinate ER 50 mg tablet,exte nded release 24 hr [generic] 50 mg By Mouth Once daily HOLD FOR SBP <100, or pulse <60 For HTN 50 mg 2023 Active 2023 23536 17193 1 Once daily By Mouth False Amlodipine 2.5 mg tablet [generic] 2.5 mg By Mouth Once daily For HTN 2.5 mg 2023 Active 2023 39526 25690 5 Once daily By Mouth False Docusate sodium 100 mg capsule [generic] 100mg By Mouth Twice daily as needed For constipation HOLD FOR LOOSE STOOLS 100mg 2023 Active 2023 30645 38027 1 Twice daily as needed By Mouth False Atorvastati n 40 mg tablet [generic] 40mg By Mouth Once daily For HDL 40mg 08/26 Inactiv e 2023 85851 89772 5 Once daily By Mouth False Tylenol 325 mg tablet 2 tabs By Mouth Every 4 hours as needed For Pain DO NOT EXCEED 3000 MG APAP/24 Hours 2 tabs 2023 Active 2023 15652 75105 0 Every 4 hours as needed By Mouth False Tylenol 325 mg tablet 2 tabs By Mouth Every 4 hours as needed For Fever >100 DO NOT EXCEED 3000 MG APAP/24 Hours 2 tabs 2023 Active 2023 73566 10756 0 Every 4 hours as needed By Mouth False Dulcolax (bisacodyl) 10 mg rectal suppository One Suppository per rectum PRN if Milk of Magnisia ineffective. Give on day 5 of no BM 1 sup 2023 Active 2023 70254 04863 1 Daily as needed Rectal False Fleet Enema 19 gram-7 gram/118 mL Administer per rectum PRN one time if dulcolax suppository not effective. Give on day 6 of no BM 1 2023 Active 2023 16288 26673 6 Daily as needed Rectal False Dextrose 50 % in water (D50W) intravenous solution [generic] Dextrose 50% evonne 20-50 ml (slow push) Intravenous if Glucagon not effective after 15 minutes. CALL 911 for ED Evaluation. 50% evonne 2023 Active 2023 55025 90802 9 Intrav enous False Glucagon (HCl) Emergency Kit 1 mg solution for injection Administer Glucagon 1 mg Intramuscular if 15 minutes after GLucose Gel is administered Glucose remains less than 70 1 mg 2023 Active 2023 80401 09281 2 Intram uscula r False Glucose Gel 40 % oral gel [Dextrose] PRN If resident is unable to swallow (with or without symptoms) and Glucose results less than 70 give GLucose 40% Gel 1 tube orally - Recheck Glucose 15 minutes after administratio n. 1 tube 2023 Active 2023 14956 54416 8 By Mouth False Milk of Magnesia 400 mg/5 mL oral suspension [Magnesium hydroxide] PRN 30ml By Mouth Daily as needed for constipation one time daily if no BM, on day 4 of no BM (PRN refer to instructions) For Constipation 30 mL 2023 Active 2023 59225 06664 6 Daily as needed By Mouth False Atorvastati n 40 mg tablet [generic] 08/26 Inactiv e 2023 92584 80313 5 Atorvastati n 40 mg tablet [generic] 40mg By Mouth Once daily For HDL 40mg 2023 Active 2023 66872 20384 5 Once daily By Mouth False VITAL SIGNS Date Time Diastolic blood pressure Systolic blood pressure Body height Body weight Temperature SpO2 Blood Sugar Pulse Respirations 62 8 67.00 mm[Hg] - Sitting 145.00 mm[Hg] - Sitting 98.50 Forehead Scan 96.00 % 81.00/ min 16.00/min 65173 2 67.00 mm[Hg] - Sitting 145.00 mm[Hg] - Sitting 98.50 Tympanic 81.00/ min 16.00/min 23 5 56.00 mm[Hg] - Sitting 142.00 mm[Hg] - Sitting 136.40 NI 100.20 Tympanic 96.00 % 92.00/ min 18.00/min 6 4 143.00 mg/dL 0 97.80 Tympanic
--- OUTSIDE RECORDS SUMMARY | 2024-10-03 11:25 | External Medical Summary | Continuity Of Care Document ---
Author Name Unknown Address [address] [address] Organization [facility] () Care Team Providers Care Hogshead Cooper Name Role Phone DO Machado Amy Primary Care Provider [phone] Allergies Allergy Reaction Start Date End Date [...] Day 3 0.1 mL 08/29 Active 2023 57569 60067 0 1 time Intrad ermal False Tubersol 5 tub. unit/0.1 mL intradermal injection solution [Tuberculin PPD] 0.1mL Intradermal 1 time For PPD 2nd Step Give 2nd Step PPD Day 1 and Read results Day 3 (schedule 7 days after 1st READ) 0.1mL 09/08 Active 2023 29918 94059 0 1 time Intrad ermal False Humalog [...] order For Diabetes 08/25 Inactiv e 2023 58162 61073 9 4 times a day Subcut aneous False Aspirin 325 mg tablet [generic] 325 By Mouth Twice daily For Anticoagulati on 325 09/25 Active 2023 25206 15487 1 Twice daily By Mouth False Ferrous sulfate 325 mg (65 mg iron) tablet [generic] 325 By Mouth Once daily For anemia 325 2023 Active 2023 99243 89470 5 Once daily By Mouth False Linezolid 600 mg tablet [generic] 600 mg By Mouth Every 12 hours For MRSA INFECTION L BKA 600 mg 08/25 Inactiv e 2023 25021 67143 1 Every 12 hours By Mouth False Cefpodoxime 200 mg tablet [generic] 400 mg By Mouth Twice daily For MRSA INFECTION L BKA 400 mg 08/25 Inactiv e 2023 74058 88691 0 Twice daily By Mouth False Coenzyme Q10 100 mg tablet [generic] 100 mg By Mouth Once daily For SUPP 100 mg 2023 Active 2023 60511 09890 0 Once daily By Mouth False Levothyroxi ne 50 mcg tablet [generic] 50mcg By Mouth Once daily For hypothyroidis m 50mcg 2023 Active 2023 91834 55187 0 Once daily By Mouth False One A Day Men Complete 240 mcg-25 mcg-300 mcg tablet 1 tab By Mouth Once daily For supplement 1 tab 2023 Active 2023 20068 80258 1 Once daily By Mouth False Cholecalcif adalberto (vitamin D3) 50 mcg (2,000 unit) tablet [generic] 1 TAB By Mouth Once daily For SUPP 1 TAB 2023 Active 2023 37592 49814 1 Once daily By Mouth False Cetirizine 10 mg tablet [generic] 1 TAB By Mouth At bedtime For Allergies 1 TAB 2023 Active 2023 52723 84158 0 At bedtime By Mouth False Timolol maleate 0.25 % eye drops [generic] 1 drop Both Eyes Twice daily For glaucoma 1 drop 2023 Active 2023 77529 45790 5 Twice daily Both Eyes False Alendronate 35 mg tablet [generic] 35mg By Mouth Every week For SIADH 35mg 2023 Active 2023 12519 22388 5 Every week By Mouth False Lantus Solostar U-100 Insulin 100 unit/mL (3 mL) subcutaneou s pen 18 units Subcutaneous Every morning For DIABETES 18 units 08/25 Inactiv e 2023 39509 35036 0 Every morning Subcut aneous False Lantus Solostar U-100 Insulin 100 unit/mL (3 mL) subcutaneou s pen 18 units Subcutaneous Every morning For DIABETES 18 units 2023 Active 2023 61663 0 Every morning Subcut aneous False Linezolid 600 mg tablet [generic] 600 mg By Mouth Every 12 hours For MRSA INFECTION L BKA 600 mg 2023 Active 2023 82867 31541 1 Every 12 hours By Mouth False [...] one-time order For Diabetes 2023 Active 2023 76942 18741 9 4 times a day Subcut aneous False Cefpodoxime 200 mg tablet [generic] 400 mg By Mouth Twice daily For MRSA INFECTION L BKA 400 mg 2023 Active 2023 75625 06720 0 Twice daily By Mouth False Brimonidine 0.1 % eye drops [generic] 1 drop Both Eyes Twice daily For glaucoma 1 drop 2023 Active 2023 12682 67000 0 Twice daily Both Eyes False Metoprolol succinate ER 50 mg tablet,exte nded release 24 hr [generic] 50 mg By Mouth Once daily HOLD FOR SBP <100, or pulse <60 For HTN 50 mg 2023 Active 2023 73539 92535 1 Once daily By Mouth False Amlodipine 2.5 mg tablet [generic] 2.5 mg By Mouth Once daily For HTN 2.5 mg 2023 Active 2023 14065 48738 5 Once daily By Mouth False Docusate sodium 100 mg capsule [generic] 100mg By Mouth Twice daily as needed For constipation HOLD FOR LOOSE STOOLS 100mg 2023 Active 2023 03245 58093 1 Twice daily as needed By Mouth False Atorvastati n 40 mg tablet [generic] 40mg By Mouth Once daily For HDL 40mg 08/26 Inactiv e 2023 09541 58689 5 Once daily By Mouth False Tylenol 325 mg tablet 2 tabs By Mouth Every 4 hours as needed For Pain DO NOT EXCEED 3000 MG APAP/24 Hours 2 tabs 2023 Active 2023 18043 69302 0 Every 4 hours as needed By Mouth False Tylenol 325 mg tablet 2 tabs By Mouth Every 4 hours as needed For Fever >100 DO NOT EXCEED 3000 MG APAP/24 Hours 2 tabs 2023 Active 2023 99148 60188 0 Every 4 hours as needed By Mouth False Dulcolax (bisacodyl) 10 mg rectal suppository One Suppository per rectum PRN if Milk of Magnisia ineffective. Give on day 5 of no BM 1 sup 2023 Active 2023 57621 28004 1 Daily as needed Rectal False Fleet Enema 19 gram-7 gram/118 mL Administer per rectum PRN one time if dulcolax suppository not effective. Give on day 6 of no BM 1 2023 Active 2023 66148 43662 6 Daily as needed Rectal False Dextrose 50 % in water (D50W) intravenous solution [generic] Dextrose 50% evonne 20-50 ml (slow push) Intravenous if Glucagon not effective after 15 minutes. CALL 911 for ED Evaluation. 50% evonne 2023 Active 2023 55305 68831 9 Intrav enous False Glucagon (HCl) Emergency Kit 1 mg solution for injection Administer Glucagon 1 mg Intramuscular if 15 minutes after GLucose Gel is administered Glucose remains less than 70 1 mg 2023 Active 2023 61957 97894 2 Intram uscula r False Glucose Gel 40 % oral gel [Dextrose] PRN If resident is unable to swallow (with or without symptoms) and Glucose results less than 70 give GLucose 40% Gel 1 tube orally - Recheck Glucose 15 minutes after administratio n. 1 tube 2023 Active 2023 59429 29496 8 By Mouth False Milk of Magnesia 400 mg/5 mL oral suspension [Magnesium hydroxide] PRN 30ml By Mouth Daily as needed for constipation one time daily if no BM, on day 4 of no BM (PRN refer to instructions) For Constipation 30 mL 2023 Active 2023 52899 22317 6 Daily as needed By Mouth False Atorvastati n 40 mg tablet [generic] 08/26 Inactiv e 2023 04408 58242 5 Atorvastati n 40 mg tablet [generic] 40mg By Mouth Once daily For HDL 40mg 2023 Active 2023 49518 14452 5 Once daily By Mouth False VITAL SIGNS Date Time Diastolic blood pressure Systolic blood pressure Body height Body weight Temperature SpO2 Blood Sugar Pulse Respirations 62 8 67.00 mm[Hg] - Sitting 145.00 mm[Hg] - Sitting 98.50 Forehead Scan 96.00 % 81.00/ min 16.00/min 93506 2 67.00 mm[Hg] - Sitting 145.00 mm[Hg] - Sitting 98.50 Tympanic 81.00/ min 16.00/min 23 5 56.00 mm[Hg] - Sitting 142.00 mm[Hg] - Sitting 136.40 NI 100.20 Tympanic 96.00 % 92.00/ min 18.00/min 18507 004 16745 6 12630 004 14301 4 143.00 mg/dL 004 68227 0 97.80 Tympanic 37704 005 82494 7 60.00 mm[Hg] - Sitting 140.00 mm[Hg] - Sitting 98.00 Tympanic 84.00/ min 18.00/min 95292 005 24957 0 63.00 mm[Hg] - Sitting 141.00 mm[Hg] - Sitting 98.20 Tympanic 92.00 % 63.00/ min 16.00/min 55666 005 26415 1 367.00 mg/dL 71218 005 45973 2 97.20 Tympanic 39202 005 54245 4 97.20 Tympanic 45531 005 89139 0 69.00 mm[Hg] - Sitting 106.00 mm[Hg] - Sitting 69.00/ min
--- OUTSIDE RECORDS SUMMARY | 2024-10-03 11:25 | External Medical Summary | Continuity Of Care Document ---
Author Name Unknown Address [address] [address] Organization [facility] () Care Team Providers Care Shelver Name Role Phone DO Machado Amy Primary Care Provider [phone] Allergies Allergy Reaction Start Date End Date [...] Day 3 0.1 mL 08/29 Active 2023 92679 02295 0 1 time Intrad ermal False Tubersol 5 tub. unit/0.1 mL intradermal injection solution [Tuberculin PPD] 0.1mL Intradermal 1 time For PPD 2nd Step Give 2nd Step PPD Day 1 and Read results Day 3 (schedule 7 days after 1st READ) 0.1mL 09/08 Active 2023 03423 29900 0 1 time Intrad ermal False Humalog [...] order For Diabetes 08/25 Inactiv e 2023 48063 48471 9 4 times a day Subcut aneous False Aspirin 325 mg tablet [generic] 325 By Mouth Twice daily For Anticoagulati on 325 09/25 Active 2023 59598 07767 1 Twice daily By Mouth False Ferrous sulfate 325 mg (65 mg iron) tablet [generic] 325 By Mouth Once daily For anemia 325 2023 Active 2023 18094 01629 5 Once daily By Mouth False Linezolid 600 mg tablet [generic] 600 mg By Mouth Every 12 hours For MRSA INFECTION L BKA 600 mg 08/25 Inactiv e 2023 44433 22699 1 Every 12 hours By Mouth False Cefpodoxime 200 mg tablet [generic] 400 mg By Mouth Twice daily For MRSA INFECTION L BKA 400 mg 08/25 Inactiv e 2023 91129 32912 0 Twice daily By Mouth False Coenzyme Q10 100 mg tablet [generic] 100 mg By Mouth Once daily For SUPP 100 mg 2023 Active 2023 06806 10894 0 Once daily By Mouth False Levothyroxi ne 50 mcg tablet [generic] 50mcg By Mouth Once daily For hypothyroidis m 50mcg 2023 Active 2023 01812 87027 0 Once daily By Mouth False One A Day Men Complete 240 mcg-25 mcg-300 mcg tablet 1 tab By Mouth Once daily For supplement 1 tab 2023 Active 2023 76967 28224 1 Once daily By Mouth False Cholecalcif adalberto (vitamin D3) 50 mcg (2,000 unit) tablet [generic] 1 TAB By Mouth Once daily For SUPP 1 TAB 2023 Active 2023 46903 80053 1 Once daily By Mouth False Cetirizine 10 mg tablet [generic] 1 TAB By Mouth At bedtime For Allergies 1 TAB 2023 Active 2023 23359 38021 0 At bedtime By Mouth False Timolol maleate 0.25 % eye drops [generic] 1 drop Both Eyes Twice daily For glaucoma 1 drop 2023 Active 2023 61746 10776 5 Twice daily Both Eyes False Alendronate 35 mg tablet [generic] 35mg By Mouth Every week For SIADH 35mg 2023 Active 2023 53882 52766 5 Every week By Mouth False Lantus Solostar U-100 Insulin 100 unit/mL (3 mL) subcutaneou s pen 18 units Subcutaneous Every morning For DIABETES 18 units 08/25 Inactiv e 2023 78806 69864 0 Every morning Subcut aneous False Lantus Solostar U-100 Insulin 100 unit/mL (3 mL) subcutaneou s pen 18 units Subcutaneous Every morning For DIABETES 18 units 2023 Active 2023 59579 0 Every morning Subcut aneous False Linezolid 600 mg tablet [generic] 600 mg By Mouth Every 12 hours For MRSA INFECTION L BKA 600 mg 2023 Active 2023 63777 67807 1 Every 12 hours By Mouth False [...] one-time order For Diabetes 2023 Active 2023 14537 75129 9 4 times a day Subcut aneous False Cefpodoxime 200 mg tablet [generic] 400 mg By Mouth Twice daily For MRSA INFECTION L BKA 400 mg 2023 Active 2023 28494 33177 0 Twice daily By Mouth False Brimonidine 0.1 % eye drops [generic] 1 drop Both Eyes Twice daily For glaucoma 1 drop 2023 Active 2023 22796 90729 0 Twice daily Both Eyes False Metoprolol succinate ER 50 mg tablet,exte nded release 24 hr [generic] 50 mg By Mouth Once daily HOLD FOR SBP <100, or pulse <60 For HTN 50 mg 2023 Active 2023 29741 46164 1 Once daily By Mouth False Amlodipine 2.5 mg tablet [generic] 2.5 mg By Mouth Once daily For HTN 2.5 mg 2023 Active 2023 55647 18205 5 Once daily By Mouth False Docusate sodium 100 mg capsule [generic] 100mg By Mouth Twice daily as needed For constipation HOLD FOR LOOSE STOOLS 100mg 2023 Active 2023 38378 37039 1 Twice daily as needed By Mouth False Atorvastati n 40 mg tablet [generic] 40mg By Mouth Once daily For HDL 40mg 08/26 Inactiv e 2023 05593 29255 5 Once daily By Mouth False Tylenol 325 mg tablet 2 tabs By Mouth Every 4 hours as needed For Pain DO NOT EXCEED 3000 MG APAP/24 Hours 2 tabs 2023 Active 2023 24990 09884 0 Every 4 hours as needed By Mouth False Tylenol 325 mg tablet 2 tabs By Mouth Every 4 hours as needed For Fever >100 DO NOT EXCEED 3000 MG APAP/24 Hours 2 tabs 2023 Active 2023 76480 98695 0 Every 4 hours as needed By Mouth False Dulcolax (bisacodyl) 10 mg rectal suppository One Suppository per rectum PRN if Milk of Magnisia ineffective. Give on day 5 of no BM 1 sup 2023 Active 2023 89122 60572 1 Daily as needed Rectal False Fleet Enema 19 gram-7 gram/118 mL Administer per rectum PRN one time if dulcolax suppository not effective. Give on day 6 of no BM 1 2023 Active 2023 07716 60873 6 Daily as needed Rectal False Dextrose 50 % in water (D50W) intravenous solution [generic] Dextrose 50% evonne 20-50 ml (slow push) Intravenous if Glucagon not effective after 15 minutes. CALL 911 for ED Evaluation. 50% evonne 2023 Active 2023 47291 10455 9 Intrav enous False Glucagon (HCl) Emergency Kit 1 mg solution for injection Administer Glucagon 1 mg Intramuscular if 15 minutes after GLucose Gel is administered Glucose remains less than 70 1 mg 2023 Active 2023 00231 32076 2 Intram uscula r False Glucose Gel 40 % oral gel [Dextrose] PRN If resident is unable to swallow (with or without symptoms) and Glucose results less than 70 give GLucose 40% Gel 1 tube orally - Recheck Glucose 15 minutes after administratio n. 1 tube 2023 Active 2023 97038 33389 8 By Mouth False Milk of Magnesia 400 mg/5 mL oral suspension [Magnesium hydroxide] PRN 30ml By Mouth Daily as needed for constipation one time daily if no BM, on day 4 of no BM (PRN refer to instructions) For Constipation 30 mL 2023 Active 2023 23593 60221 6 Daily as needed By Mouth False Atorvastati n 40 mg tablet [generic] 08/26 Inactiv e 2023 79551 34195 5 Atorvastati n 40 mg tablet [generic] 40mg By Mouth Once daily For HDL 40mg 2023 Active 2023 99313 82698 5 Once daily By Mouth False Insulin aspart (U-100) 100 unit/mL (3 mL) subcutaneou s pen [generic] 15 units Subcutaneous 1 time For dm 15 units 08/26 Inactiv e 2023 36667 79141 5 1 time Subcut aneous False Humalog KwikPen (U-100) Insulin 100 unit/mL subcutaneou s 15 units Subcutaneous 1 time For dm 15 units 08/27 Active 2023 34618 79790 9 1 time Subcut aneous False MediHoney HCS 4 1/2in X 4 1/2in bandage Cleanse area with NSS, apply one medihoney hydrocolloid dressing, non adherent dressing, kerlix secure with paper tape daily. For wound stage III 1 2023 0000 /0000 Active 2023 83792 67203 1 Once daily Topica l False VITAL SIGNS Date Time Diastolic blood pressure Systolic blood pressure Body height Body weight Temperature SpO2 Blood Sugar Pulse Respirations 004 91314 8 67.00 mm[Hg] - Sitting 145.00 mm[Hg] - Sitting 98.50 Forehead Scan 96.00 % 81.00/ min 16.00/min 82092 004 92195 2 67.00 mm[Hg] - Sitting 145.00 mm[Hg] - Sitting 98.50 Tympanic 81.00/ min 16.00/min 32974 004 26489 5 56.00 mm[Hg] - Sitting 142.00 mm[Hg] - Sitting 136.40 NI 100.20 Tympanic 96.00 % 92.00/ min 18.00/min 55474 004 60239 6 23580 004 68716 4 143.00 mg/dL 65822 004 00941 0 97.80 Tympanic 98294 005 17238 7 60.00 mm[Hg] - Sitting 140.00 mm[Hg] - Sitting 98.00 Tympanic 84.00/ min 18.00/min 48916 005 22768 0 63.00 mm[Hg] - Sitting 141.00 mm[Hg] - Sitting 98.20 Tympanic 92.00 % 63.00/ min 16.00/min 96948 005 40682 8 69.00 mm[Hg] - Sitting 106.00 mm[Hg] - Sitting 97.20 Tympanic 54561 005 73281 7 69.00/ min 16.00/min 10775 005 77444 1 367.00 mg/dL 12661 005 28559 2 97.20 Tympanic 67206 005 01530 4 97.20 Tympanic 63187 005 44611 0 69.00 mm[Hg] - Sitting 106.00 mm[Hg] - Sitting 69.00/ min 90442 005 68439 3 452.00 mg/dL 49360 005 90299 3 452.00 mg/dL
--- OUTSIDE RECORDS SUMMARY | 2024-10-03 11:25 | External Medical Summary | Continuity Of Care Document ---
Author Name Unknown Address [address] [address] Organization [facility] () Care Team Providers Care Warehouse Picker Name Role Phone DO Machado Amy Primary Care Provider [phone] Allergies Allergy Reaction Start Date End Date [...] Day 3 0.1 mL 08/29 Active 2023 00601 67601 0 1 time Intrad ermal False Tubersol 5 tub. unit/0.1 mL intradermal injection solution [Tuberculin PPD] 0.1mL Intradermal 1 time For PPD 2nd Step Give 2nd Step PPD Day 1 and Read results Day 3 (schedule 7 days after 1st READ) 0.1mL 09/08 Active 2023 85407 83969 0 1 time Intrad ermal False Humalog [...] order For Diabetes 08/25 Inactiv e 2023 23068 90117 9 4 times a day Subcut aneous False Aspirin 325 mg tablet [generic] 325 By Mouth Twice daily For Anticoagulati on 325 09/25 Active 2023 87482 98273 1 Twice daily By Mouth False Ferrous sulfate 325 mg (65 mg iron) tablet [generic] 325 By Mouth Once daily For anemia 325 2023 Active 2023 30125 01667 5 Once daily By Mouth False Linezolid 600 mg tablet [generic] 600 mg By Mouth Every 12 hours For MRSA INFECTION L BKA 600 mg 08/25 Inactiv e 2023 59325 15712 1 Every 12 hours By Mouth False Cefpodoxime 200 mg tablet [generic] 400 mg By Mouth Twice daily For MRSA INFECTION L BKA 400 mg 08/25 Inactiv e 2023 12978 14776 0 Twice daily By Mouth False Coenzyme Q10 100 mg tablet [generic] 100 mg By Mouth Once daily For SUPP 100 mg 2023 Active 2023 83533 39031 0 Once daily By Mouth False Levothyroxi ne 50 mcg tablet [generic] 50mcg By Mouth Once daily For hypothyroidis m 50mcg 2023 Active 2023 51197 67959 0 Once daily By Mouth False One A Day Men Complete 240 mcg-25 mcg-300 mcg tablet 1 tab By Mouth Once daily For supplement 1 tab 2023 Active 2023 66489 36811 1 Once daily By Mouth False Cholecalcif adalberto (vitamin D3) 50 mcg (2,000 unit) tablet [generic] 1 TAB By Mouth Once daily For SUPP 1 TAB 2023 Active 2023 61955 27303 1 Once daily By Mouth False Cetirizine 10 mg tablet [generic] 1 TAB By Mouth At bedtime For Allergies 1 TAB 2023 Active 2023 25328 95232 0 At bedtime By Mouth False Timolol maleate 0.25 % eye drops [generic] 1 drop Both Eyes Twice daily For glaucoma 1 drop 2023 Active 2023 12407 79066 5 Twice daily Both Eyes False Alendronate 35 mg tablet [generic] 35mg By Mouth Every week For SIADH 35mg 2023 Active 2023 57272 87981 5 Every week By Mouth False Lantus Solostar U-100 Insulin 100 unit/mL (3 mL) subcutaneou s pen 18 units Subcutaneous Every morning For DIABETES 18 units 08/25 Inactiv e 2023 54986 07271 0 Every morning Subcut aneous False Lantus Solostar U-100 Insulin 100 unit/mL (3 mL) subcutaneou s pen 18 units Subcutaneous Every morning For DIABETES 18 units 2023 Active 2023 90163 0 Every morning Subcut aneous False Linezolid 600 mg tablet [generic] 600 mg By Mouth Every 12 hours For MRSA INFECTION L BKA 600 mg 2023 Active 2023 10337 76168 1 Every 12 hours By Mouth False [...] one-time order For Diabetes 2023 Active 2023 02633 77207 9 4 times a day Subcut aneous False Cefpodoxime 200 mg tablet [generic] 400 mg By Mouth Twice daily For MRSA INFECTION L BKA 400 mg 2023 Active 2023 68920 13538 0 Twice daily By Mouth False Brimonidine 0.1 % eye drops [generic] 1 drop Both Eyes Twice daily For glaucoma 1 drop 2023 Active 2023 89566 62141 0 Twice daily Both Eyes False Metoprolol succinate ER 50 mg tablet,exte nded release 24 hr [generic] 50 mg By Mouth Once daily HOLD FOR SBP <100, or pulse <60 For HTN 50 mg 2023 Active 2023 75386 95790 1 Once daily By Mouth False Amlodipine 2.5 mg tablet [generic] 2.5 mg By Mouth Once daily For HTN 2.5 mg 2023 Active 2023 31472 17647 5 Once daily By Mouth False Docusate sodium 100 mg capsule [generic] 100mg By Mouth Twice daily as needed For constipation HOLD FOR LOOSE STOOLS 100mg 2023 Active 2023 54850 21066 1 Twice daily as needed By Mouth False Atorvastati n 40 mg tablet [generic] 40mg By Mouth Once daily For HDL 40mg 08/26 Inactiv e 2023 45926 42531 5 Once daily By Mouth False Tylenol 325 mg tablet 2 tabs By Mouth Every 4 hours as needed For Pain DO NOT EXCEED 3000 MG APAP/24 Hours 2 tabs 2023 Active 2023 13956 57755 0 Every 4 hours as needed By Mouth False Tylenol 325 mg tablet 2 tabs By Mouth Every 4 hours as needed For Fever >100 DO NOT EXCEED 3000 MG APAP/24 Hours 2 tabs 2023 Active 2023 79389 38565 0 Every 4 hours as needed By Mouth False Dulcolax (bisacodyl) 10 mg rectal suppository One Suppository per rectum PRN if Milk of Magnisia ineffective. Give on day 5 of no BM 1 sup 2023 Active 2023 18407 48116 1 Daily as needed Rectal False Fleet Enema 19 gram-7 gram/118 mL Administer per rectum PRN one time if dulcolax suppository not effective. Give on day 6 of no BM 1 2023 Active 2023 90247 69281 6 Daily as needed Rectal False Dextrose 50 % in water (D50W) intravenous solution [generic] Dextrose 50% evonne 20-50 ml (slow push) Intravenous if Glucagon not effective after 15 minutes. CALL 911 for ED Evaluation. 50% evonne 2023 Active 2023 02322 38116 9 Intrav enous False Glucagon (HCl) Emergency Kit 1 mg solution for injection Administer Glucagon 1 mg Intramuscular if 15 minutes after GLucose Gel is administered Glucose remains less than 70 1 mg 2023 Active 2023 61923 71243 2 Intram uscula r False Glucose Gel 40 % oral gel [Dextrose] PRN If resident is unable to swallow (with or without symptoms) and Glucose results less than 70 give GLucose 40% Gel 1 tube orally - Recheck Glucose 15 minutes after administratio n. 1 tube 2023 Active 2023 86356 85230 8 By Mouth False Milk of Magnesia 400 mg/5 mL oral suspension [Magnesium hydroxide] PRN 30ml By Mouth Daily as needed for constipation one time daily if no BM, on day 4 of no BM (PRN refer to instructions) For Constipation 30 mL 2023 Active 2023 19267 45255 6 Daily as needed By Mouth False Atorvastati n 40 mg tablet [generic] 08/26 Inactiv e 2023 76604 70503 5 Atorvastati n 40 mg tablet [generic] 40mg By Mouth Once daily For HDL 40mg 2023 Active 2023 44144 48855 5 Once daily By Mouth False MediHoney HCS 4 1/2in X 4 1/2in bandage Topical Once daily 2023 Active 2023 21000 43428 1 Once daily Topica l False VITAL SIGNS Date Time Diastolic blood pressure Systolic blood pressure Body height Body weight Temperature SpO2 Blood Sugar Pulse Respirations 81172 004 35819 8 67.00 mm[Hg] - Sitting 145.00 mm[Hg] - Sitting 98.50 Forehead Scan 96.00 % 81.00/ min 16.00/min 56814 004 83356 2 67.00 mm[Hg] - Sitting 145.00 mm[Hg] - Sitting 98.50 Tympanic 81.00/ min 16.00/min 59621 004 71932 5 56.00 mm[Hg] - Sitting 142.00 mm[Hg] - Sitting 136.40 NI 100.20 Tympanic 96.00 % 92.00/ min 18.00/min 21786 004 10440 6 50446 004 19177 4 143.00 mg/dL 21952 004 04896 0 97.80 Tympanic 96617 005 31574 7 60.00 mm[Hg] - Sitting 140.00 mm[Hg] - Sitting 98.00 Tympanic 84.00/ min 18.00/min 91040 005 32895 0 63.00 mm[Hg] - Sitting 141.00 mm[Hg] - Sitting 98.20 Tympanic 92.00 % 63.00/ min 16.00/min 65808 005 51548 8 69.00 mm[Hg] - Sitting 106.00 mm[Hg] - Sitting 97.20 Tympanic 75560 005 14508 1 367.00 mg/dL 92048 005 79130 2 97.20 Tympanic 74454 005 43397 4 97.20 Tympanic 85120 005 46767 0 69.00 mm[Hg] - Sitting 106.00 mm[Hg] - Sitting 69.00/ min 76114 005 16240 3 452.00 mg/dL 33132 005 08532 3 452.00 mg/dL
--- OUTSIDE RECORDS SUMMARY | 2024-10-03 11:25 | External Medical Summary | Continuity Of Care Document ---
Author Name Unknown Address [address] [address] Organization [facility] () Care Team Providers Care Supervisor Crack Off Name Role Phone DO Machado Amy Primary Care Provider [phone] Allergies Allergy Reaction Start Date End Date [...] Day 3 0.1 mL 08/29 Active 2023 30734 62299 0 1 time Intrad ermal False Tubersol 5 tub. unit/0.1 mL intradermal injection solution [Tuberculin PPD] 0.1mL Intradermal 1 time For PPD 2nd Step Give 2nd Step PPD Day 1 and Read results Day 3 (schedule 7 days after 1st READ) 0.1mL 09/08 Active 2023 41436 55658 0 1 time Intrad ermal False Humalog [...] order For Diabetes 08/25 Inactiv e 2023 51983 45312 9 4 times a day Subcut aneous False Aspirin 325 mg tablet [generic] 325 By Mouth Twice daily For Anticoagulati on 325 09/25 Active 2023 39447 10206 1 Twice daily By Mouth False Ferrous sulfate 325 mg (65 mg iron) tablet [generic] 325 By Mouth Once daily For anemia 325 2023 Active 2023 11042 79919 5 Once daily By Mouth False Linezolid 600 mg tablet [generic] 600 mg By Mouth Every 12 hours For MRSA INFECTION L BKA 600 mg 08/25 Inactiv e 2023 23203 62126 1 Every 12 hours By Mouth False Cefpodoxime 200 mg tablet [generic] 400 mg By Mouth Twice daily For MRSA INFECTION L BKA 400 mg 08/25 Inactiv e 2023 42085 75498 0 Twice daily By Mouth False Coenzyme Q10 100 mg tablet [generic] 100 mg By Mouth Once daily For SUPP 100 mg 2023 Active 2023 60179 49706 0 Once daily By Mouth False Levothyroxi ne 50 mcg tablet [generic] 50mcg By Mouth Once daily For hypothyroidis m 50mcg 2023 Active 2023 03630 76930 0 Once daily By Mouth False One A Day Men Complete 240 mcg-25 mcg-300 mcg tablet 1 tab By Mouth Once daily For supplement 1 tab 2023 Active 2023 40116 79341 1 Once daily By Mouth False Cholecalcif adalberto (vitamin D3) 50 mcg (2,000 unit) tablet [generic] 1 TAB By Mouth Once daily For SUPP 1 TAB 2023 Active 2023 95482 28525 1 Once daily By Mouth False Cetirizine 10 mg tablet [generic] 1 TAB By Mouth At bedtime For Allergies 1 TAB 2023 Active 2023 50884 68245 0 At bedtime By Mouth False Timolol maleate 0.25 % eye drops [generic] 1 drop Both Eyes Twice daily For glaucoma 1 drop 2023 Active 2023 40843 37424 5 Twice daily Both Eyes False Alendronate 35 mg tablet [generic] 35mg By Mouth Every week For SIADH 35mg 2023 Active 2023 09961 83129 5 Every week By Mouth False Lantus Solostar U-100 Insulin 100 unit/mL (3 mL) subcutaneou s pen 18 units Subcutaneous Every morning For DIABETES 18 units 08/25 Inactiv e 2023 10637 87519 0 Every morning Subcut aneous False Lantus Solostar U-100 Insulin 100 unit/mL (3 mL) subcutaneou s pen 18 units Subcutaneous Every morning For DIABETES 18 units 2023 Active 2023 44655 0 Every morning Subcut aneous False Linezolid 600 mg tablet [generic] 600 mg By Mouth Every 12 hours For MRSA INFECTION L BKA 600 mg 2023 Active 2023 63482 46020 1 Every 12 hours By Mouth False [...] one-time order For Diabetes 2023 Active 2023 72879 40931 9 4 times a day Subcut aneous False Cefpodoxime 200 mg tablet [generic] 400 mg By Mouth Twice daily For MRSA INFECTION L BKA 400 mg 2023 Active 2023 88775 50815 0 Twice daily By Mouth False Brimonidine 0.1 % eye drops [generic] 1 drop Both Eyes Twice daily For glaucoma 1 drop 2023 Active 2023 35255 76278 0 Twice daily Both Eyes False Metoprolol succinate ER 50 mg tablet,exte nded release 24 hr [generic] 50 mg By Mouth Once daily HOLD FOR SBP <100, or pulse <60 For HTN 50 mg 2023 Active 2023 94468 39725 1 Once daily By Mouth False Amlodipine 2.5 mg tablet [generic] 2.5 mg By Mouth Once daily For HTN 2.5 mg 2023 Active 2023 15279 57242 5 Once daily By Mouth False Docusate sodium 100 mg capsule [generic] 100mg By Mouth Twice daily as needed For constipation HOLD FOR LOOSE STOOLS 100mg 2023 Active 2023 56572 62649 1 Twice daily as needed By Mouth False Atorvastati n 40 mg tablet [generic] 40mg By Mouth Once daily For HDL 40mg 2023 Active 2023 50783 95011 5 Once daily By Mouth False Tylenol 325 mg tablet 2 tabs By Mouth Every 4 hours as needed For Pain DO NOT EXCEED 3000 MG APAP/24 Hours 2 tabs 2023 Active 2023 81423 32925 0 Every 4 hours as needed By Mouth False Tylenol 325 mg tablet 2 tabs By Mouth Every 4 hours as needed For Fever >100 DO NOT EXCEED 3000 MG APAP/24 Hours 2 tabs 2023 Active 2023 05204 01583 0 Every 4 hours as needed By Mouth False Dulcolax (bisacodyl) 10 mg rectal suppository One Suppository per rectum PRN if Milk of Magnisia ineffective. Give on day 5 of no BM 1 sup 2023 Active 2023 10346 47701 1 Daily as needed Rectal False Fleet Enema 19 gram-7 gram/118 mL Administer per rectum PRN one time if dulcolax suppository not effective. Give on day 6 of no BM 1 2023 Active 2023 09164 17890 6 Daily as needed Rectal False Dextrose 50 % in water (D50W) intravenous solution [generic] Dextrose 50% evonne 20-50 ml (slow push) Intravenous if Glucagon not effective after 15 minutes. CALL 911 for ED Evaluation. 50% evonne 2023 Active 2023 16667 68586 9 Intrav enous False Glucagon (HCl) Emergency Kit 1 mg solution for injection Administer Glucagon 1 mg Intramuscular if 15 minutes after GLucose Gel is administered Glucose remains less than 70 1 mg 2023 Active 2023 27931 88935 2 Intram uscula r False Glucose Gel 40 % oral gel [Dextrose] PRN If resident is unable to swallow (with or without symptoms) and Glucose results less than 70 give GLucose 40% Gel 1 tube orally - Recheck Glucose 15 minutes after administratio n. 1 tube 2023 Active 2023 88725 67404 8 By Mouth False Milk of Magnesia 400 mg/5 mL oral suspension [Magnesium hydroxide] PRN 30ml By Mouth Daily as needed for constipation one time daily if no BM, on day 4 of no BM (PRN refer to instructions) For Constipation 30 mL 2023 Active 2023 40523 81919 6 Daily as needed By Mouth False VITAL SIGNS Date Time Diastolic blood pressure Systolic blood pressure Body height Body weight Temperature SpO2 Blood Sugar Pulse Respirations 45877 8 67.00 mm[Hg] - Sitting 145.00 mm[Hg] - Sitting 98.50 Forehead Scan 96.00 % 81.00/ min 16.00/min 27929 2 67.00 mm[Hg] - Sitting 145.00 mm[Hg] - Sitting 98.50 Tympanic 81.00/ min 16.00/min 96240 5 56.00 mm[Hg] - Sitting 142.00 mm[Hg] - Sitting 136.40 NI 100.20 Tympanic 96.00 % 92.00/ min 18.00/min
--- OUTSIDE RECORDS SUMMARY | 2024-10-03 11:25 | External Medical Summary | Continuity Of Care Document ---
Author Name Unknown Address [address] [address] Organization [facility] () Care Team Providers Care Lens Grinder Apprentice Name Role Phone DO Machado Amy Primary Care Provider [phone] Allergies Allergy Reaction Start Date End Date [...] Day 3 0.1 mL 08/29 Active 2023 80462 22423 0 1 time Intrad ermal False Tubersol 5 tub. unit/0.1 mL intradermal injection solution [Tuberculin PPD] 0.1mL Intradermal 1 time For PPD 2nd Step Give 2nd Step PPD Day 1 and Read results Day 3 (schedule 7 days after 1st READ) 0.1mL 09/08 Active 2023 93319 48023 0 1 time Intrad ermal False Humalog [...] order For Diabetes 08/25 Inactiv e 2023 25961 00614 9 4 times a day Subcut aneous False Aspirin 325 mg tablet [generic] 325 By Mouth Twice daily For Anticoagulati on 325 09/25 Active 2023 36769 49976 1 Twice daily By Mouth False Ferrous sulfate 325 mg (65 mg iron) tablet [generic] 325 By Mouth Once daily For anemia 325 2023 Active 2023 42462 46284 5 Once daily By Mouth False Linezolid 600 mg tablet [generic] 600 mg By Mouth Every 12 hours For MRSA INFECTION L BKA 600 mg 08/25 Inactiv e 2023 53252 80390 1 Every 12 hours By Mouth False Cefpodoxime 200 mg tablet [generic] 400 mg By Mouth Twice daily For MRSA INFECTION L BKA 400 mg 08/25 Inactiv e 2023 67084 65737 0 Twice daily By Mouth False Coenzyme Q10 100 mg tablet [generic] 100 mg By Mouth Once daily For SUPP 100 mg 2023 Active 2023 52884 43648 0 Once daily By Mouth False Levothyroxi ne 50 mcg tablet [generic] 50mcg By Mouth Once daily For hypothyroidis m 50mcg 2023 Active 2023 00822 42373 0 Once daily By Mouth False One A Day Men Complete 240 mcg-25 mcg-300 mcg tablet 1 tab By Mouth Once daily For supplement 1 tab 2023 Active 2023 05554 13680 1 Once daily By Mouth False Cholecalcif adalberto (vitamin D3) 50 mcg (2,000 unit) tablet [generic] 1 TAB By Mouth Once daily For SUPP 1 TAB 2023 Active 2023 10961 16598 1 Once daily By Mouth False Cetirizine 10 mg tablet [generic] 1 TAB By Mouth At bedtime For Allergies 1 TAB 2023 Active 2023 71827 74567 0 At bedtime By Mouth False Timolol maleate 0.25 % eye drops [generic] 1 drop Both Eyes Twice daily For glaucoma 1 drop 2023 Active 2023 69879 80000 5 Twice daily Both Eyes False Alendronate 35 mg tablet [generic] 35mg By Mouth Every week For SIADH 35mg 2023 Active 2023 36595 96065 5 Every week By Mouth False Lantus Solostar U-100 Insulin 100 unit/mL (3 mL) subcutaneou s pen 18 units Subcutaneous Every morning For DIABETES 18 units 08/25 Inactiv e 2023 93802 28662 0 Every morning Subcut aneous False Lantus Solostar U-100 Insulin 100 unit/mL (3 mL) subcutaneou s pen 18 units Subcutaneous Every morning For DIABETES 18 units 2023 Active 2023 10920 0 Every morning Subcut aneous False Linezolid 600 mg tablet [generic] 600 mg By Mouth Every 12 hours For MRSA INFECTION L BKA 600 mg 2023 Active 2023 36338 10176 1 Every 12 hours By Mouth False [...] one-time order For Diabetes 2023 Active 2023 02255 61239 9 4 times a day Subcut aneous False Cefpodoxime 200 mg tablet [generic] 400 mg By Mouth Twice daily For MRSA INFECTION L BKA 400 mg 2023 Active 2023 40746 55418 0 Twice daily By Mouth False Brimonidine 0.1 % eye drops [generic] 1 drop Both Eyes Twice daily For glaucoma 1 drop 2023 Active 2023 84351 74255 0 Twice daily Both Eyes False Metoprolol succinate ER 50 mg tablet,exte nded release 24 hr [generic] 50 mg By Mouth Once daily HOLD FOR SBP <100, or pulse <60 For HTN 50 mg 2023 Active 2023 72163 05699 1 Once daily By Mouth False Amlodipine 2.5 mg tablet [generic] 2.5 mg By Mouth Once daily For HTN 2.5 mg 2023 Active 2023 18949 02402 5 Once daily By Mouth False Docusate sodium 100 mg capsule [generic] 100mg By Mouth Twice daily as needed For constipation HOLD FOR LOOSE STOOLS 100mg 2023 Active 2023 74607 59073 1 Twice daily as needed By Mouth False Atorvastati n 40 mg tablet [generic] 40mg By Mouth Once daily For HDL 40mg 08/26 Inactiv e 2023 17278 67426 5 Once daily By Mouth False Tylenol 325 mg tablet 2 tabs By Mouth Every 4 hours as needed For Pain DO NOT EXCEED 3000 MG APAP/24 Hours 2 tabs 2023 Active 2023 80255 30286 0 Every 4 hours as needed By Mouth False Tylenol 325 mg tablet 2 tabs By Mouth Every 4 hours as needed For Fever >100 DO NOT EXCEED 3000 MG APAP/24 Hours 2 tabs 2023 Active 2023 25848 20827 0 Every 4 hours as needed By Mouth False Dulcolax (bisacodyl) 10 mg rectal suppository One Suppository per rectum PRN if Milk of Magnisia ineffective. Give on day 5 of no BM 1 sup 2023 Active 2023 59848 80644 1 Daily as needed Rectal False Fleet Enema 19 gram-7 gram/118 mL Administer per rectum PRN one time if dulcolax suppository not effective. Give on day 6 of no BM 1 2023 Active 2023 17193 16702 6 Daily as needed Rectal False Dextrose 50 % in water (D50W) intravenous solution [generic] Dextrose 50% evonne 20-50 ml (slow push) Intravenous if Glucagon not effective after 15 minutes. CALL 911 for ED Evaluation. 50% evonne 2023 Active 2023 81744 12304 9 Intrav enous False Glucagon (HCl) Emergency Kit 1 mg solution for injection Administer Glucagon 1 mg Intramuscular if 15 minutes after GLucose Gel is administered Glucose remains less than 70 1 mg 2023 Active 2023 83739 26600 2 Intram uscula r False Glucose Gel 40 % oral gel [Dextrose] PRN If resident is unable to swallow (with or without symptoms) and Glucose results less than 70 give GLucose 40% Gel 1 tube orally - Recheck Glucose 15 minutes after administratio n. 1 tube 2023 Active 2023 66333 65469 8 By Mouth False Milk of Magnesia 400 mg/5 mL oral suspension [Magnesium hydroxide] PRN 30ml By Mouth Daily as needed for constipation one time daily if no BM, on day 4 of no BM (PRN refer to instructions) For Constipation 30 mL 2023 Active 2023 47157 00575 6 Daily as needed By Mouth False Atorvastati n 40 mg tablet [generic] 08/26 Inactiv e 2023 07413 61025 5 Atorvastati n 40 mg tablet [generic] 40mg By Mouth Once daily For HDL 40mg 2023 Active 2023 64967 17669 5 Once daily By Mouth False MediHoney HCS 4 1/2in X 4 1/2in bandage Topical Once daily 2023 Active 2023 19680 86114 1 Once daily Topica l False VITAL SIGNS Date Time Diastolic blood pressure Systolic blood pressure Body height Body weight Temperature SpO2 Blood Sugar Pulse Respirations 94368 004 59277 8 67.00 mm[Hg] - Sitting 145.00 mm[Hg] - Sitting 98.50 Forehead Scan 96.00 % 81.00/ min 16.00/min 98078 004 13255 2 67.00 mm[Hg] - Sitting 145.00 mm[Hg] - Sitting 98.50 Tympanic 81.00/ min 16.00/min 56198 004 86857 5 56.00 mm[Hg] - Sitting 142.00 mm[Hg] - Sitting 136.40 NI 100.20 Tympanic 96.00 % 92.00/ min 18.00/min 97273 004 02383 6 29460 004 25091 4 143.00 mg/dL 93745 004 44912 0 97.80 Tympanic 76565 005 08499 7 60.00 mm[Hg] - Sitting 140.00 mm[Hg] - Sitting 98.00 Tympanic 84.00/ min 18.00/min 15402 005 01978 0 63.00 mm[Hg] - Sitting 141.00 mm[Hg] - Sitting 98.20 Tympanic 92.00 % 63.00/ min 16.00/min 10729 005 59085 8 69.00 mm[Hg] - Sitting 106.00 mm[Hg] - Sitting 97.20 Tympanic 67415 005 11849 1 367.00 mg/dL 03795 005 71362 2 97.20 Tympanic 49005 005 50330 4 97.20 Tympanic 17386 005 78150 0 69.00 mm[Hg] - Sitting 106.00 mm[Hg] - Sitting 69.00/ min 52344 005 27540 3 452.00 mg/dL 60021 005 34596 3 452.00 mg/dL
--- OUTSIDE RECORDS SUMMARY | 2024-10-03 11:25 | External Medical Summary | Continuity Of Care Document ---
Author Name Unknown Address [address] [address] Organization [facility] () Care Team Providers Care Filbert Grower Name Role Phone DO Machado Amy Primary Care Provider [phone] Allergies Allergy Reaction Start Date End Date [...] Day 3 0.1 mL 08/29 Active 2023 91051 67307 0 1 time Intrad ermal False Tubersol 5 tub. unit/0.1 mL intradermal injection solution [Tuberculin PPD] 0.1mL Intradermal 1 time For PPD 2nd Step Give 2nd Step PPD Day 1 and Read results Day 3 (schedule 7 days after 1st READ) 0.1mL 09/08 Active 2023 99156 99779 0 1 time Intrad ermal False Humalog [...] order For Diabetes 08/25 Inactiv e 2023 26083 91070 9 4 times a day Subcut aneous False Aspirin 325 mg tablet [generic] 325 By Mouth Twice daily For Anticoagulati on 325 09/25 Active 2023 32403 68411 1 Twice daily By Mouth False Ferrous sulfate 325 mg (65 mg iron) tablet [generic] 325 By Mouth Once daily For anemia 325 2023 Active 2023 59172 72967 5 Once daily By Mouth False Linezolid 600 mg tablet [generic] 600 mg By Mouth Every 12 hours For MRSA INFECTION L BKA 600 mg 08/25 Inactiv e 2023 74842 49864 1 Every 12 hours By Mouth False Cefpodoxime 200 mg tablet [generic] 400 mg By Mouth Twice daily For MRSA INFECTION L BKA 400 mg 08/25 Inactiv e 2023 57497 66105 0 Twice daily By Mouth False Coenzyme Q10 100 mg tablet [generic] 100 mg By Mouth Once daily For SUPP 100 mg 2023 Active 2023 58197 50003 0 Once daily By Mouth False Levothyroxi ne 50 mcg tablet [generic] 50mcg By Mouth Once daily For hypothyroidis m 50mcg 2023 Active 2023 31853 23388 0 Once daily By Mouth False One A Day Men Complete 240 mcg-25 mcg-300 mcg tablet 1 tab By Mouth Once daily For supplement 1 tab 2023 Active 2023 24405 35169 1 Once daily By Mouth False Cholecalcif adalberto (vitamin D3) 50 mcg (2,000 unit) tablet [generic] 1 TAB By Mouth Once daily For SUPP 1 TAB 2023 Active 2023 12136 72994 1 Once daily By Mouth False Cetirizine 10 mg tablet [generic] 1 TAB By Mouth At bedtime For Allergies 1 TAB 2023 Active 2023 21101 13922 0 At bedtime By Mouth False Timolol maleate 0.25 % eye drops [generic] 1 drop Both Eyes Twice daily For glaucoma 1 drop 2023 Active 2023 83101 76630 5 Twice daily Both Eyes False Alendronate 35 mg tablet [generic] 35mg By Mouth Every week For SIADH 35mg 2023 Active 2023 00688 50146 5 Every week By Mouth False Lantus Solostar U-100 Insulin 100 unit/mL (3 mL) subcutaneou s pen 18 units Subcutaneous Every morning For DIABETES 18 units 08/25 Inactiv e 2023 96922 69411 0 Every morning Subcut aneous False Lantus Solostar U-100 Insulin 100 unit/mL (3 mL) subcutaneou s pen 18 units Subcutaneous Every morning For DIABETES 18 units 2023 Active 2023 75853 0 Every morning Subcut aneous False Linezolid 600 mg tablet [generic] 600 mg By Mouth Every 12 hours For MRSA INFECTION L BKA 600 mg 2023 Active 2023 50380 73374 1 Every 12 hours By Mouth False [...] one-time order For Diabetes 2023 Active 2023 88854 82849 9 4 times a day Subcut aneous False Cefpodoxime 200 mg tablet [generic] 400 mg By Mouth Twice daily For MRSA INFECTION L BKA 400 mg 2023 Active 2023 43987 34017 0 Twice daily By Mouth False Brimonidine 0.1 % eye drops [generic] 1 drop Both Eyes Twice daily For glaucoma 1 drop 2023 Active 2023 79210 15492 0 Twice daily Both Eyes False Metoprolol succinate ER 50 mg tablet,exte nded release 24 hr [generic] 50 mg By Mouth Once daily HOLD FOR SBP <100, or pulse <60 For HTN 50 mg 2023 Active 2023 95199 17780 1 Once daily By Mouth False Amlodipine 2.5 mg tablet [generic] 2.5 mg By Mouth Once daily For HTN 2.5 mg 2023 Active 2023 84954 70345 5 Once daily By Mouth False Docusate sodium 100 mg capsule [generic] 100mg By Mouth Twice daily as needed For constipation HOLD FOR LOOSE STOOLS 100mg 2023 Active 2023 19543 07150 1 Twice daily as needed By Mouth False Atorvastati n 40 mg tablet [generic] 40mg By Mouth Once daily For HDL 40mg 08/26 Inactiv e 2023 24229 47607 5 Once daily By Mouth False Tylenol 325 mg tablet 2 tabs By Mouth Every 4 hours as needed For Pain DO NOT EXCEED 3000 MG APAP/24 Hours 2 tabs 2023 Active 2023 26121 14021 0 Every 4 hours as needed By Mouth False Tylenol 325 mg tablet 2 tabs By Mouth Every 4 hours as needed For Fever >100 DO NOT EXCEED 3000 MG APAP/24 Hours 2 tabs 2023 Active 2023 74661 81909 0 Every 4 hours as needed By Mouth False Dulcolax (bisacodyl) 10 mg rectal suppository One Suppository per rectum PRN if Milk of Magnisia ineffective. Give on day 5 of no BM 1 sup 2023 Active 2023 34874 76709 1 Daily as needed Rectal False Fleet Enema 19 gram-7 gram/118 mL Administer per rectum PRN one time if dulcolax suppository not effective. Give on day 6 of no BM 1 2023 Active 2023 70132 53561 6 Daily as needed Rectal False Dextrose 50 % in water (D50W) intravenous solution [generic] Dextrose 50% evonne 20-50 ml (slow push) Intravenous if Glucagon not effective after 15 minutes. CALL 911 for ED Evaluation. 50% evonne 2023 Active 2023 07144 85780 9 Intrav enous False Glucagon (HCl) Emergency Kit 1 mg solution for injection Administer Glucagon 1 mg Intramuscular if 15 minutes after GLucose Gel is administered Glucose remains less than 70 1 mg 2023 Active 2023 99341 70777 2 Intram uscula r False Glucose Gel 40 % oral gel [Dextrose] PRN If resident is unable to swallow (with or without symptoms) and Glucose results less than 70 give GLucose 40% Gel 1 tube orally - Recheck Glucose 15 minutes after administratio n. 1 tube 2023 Active 2023 31892 78983 8 By Mouth False Milk of Magnesia 400 mg/5 mL oral suspension [Magnesium hydroxide] PRN 30ml By Mouth Daily as needed for constipation one time daily if no BM, on day 4 of no BM (PRN refer to instructions) For Constipation 30 mL 2023 Active 2023 68749 94688 6 Daily as needed By Mouth False Atorvastati n 40 mg tablet [generic] 08/26 Inactiv e 2023 44173 03102 5 Atorvastati n 40 mg tablet [generic] 40mg By Mouth Once daily For HDL 40mg 2023 Active 2023 42604 07442 5 Once daily By Mouth False VITAL SIGNS Date Time Diastolic blood pressure Systolic blood pressure Body height Body weight Temperature SpO2 Blood Sugar Pulse Respirations 62 8 67.00 mm[Hg] - Sitting 145.00 mm[Hg] - Sitting 98.50 Forehead Scan 96.00 % 81.00/ min 16.00/min 89192 2 67.00 mm[Hg] - Sitting 145.00 mm[Hg] - Sitting 98.50 Tympanic 81.00/ min 16.00/min 23 5 56.00 mm[Hg] - Sitting 142.00 mm[Hg] - Sitting 136.40 NI 100.20 Tympanic 96.00 % 92.00/ min 18.00/min 38873 004 81113 6 27892 004 04993 4 143.00 mg/dL 004 51652 0 97.80 Tympanic 06989 005 85159 7 60.00 mm[Hg] - Sitting 140.00 mm[Hg] - Sitting 98.00 Tympanic 84.00/ min 18.00/min 56739 005 15058 0 63.00 mm[Hg] - Sitting 141.00 mm[Hg] - Sitting 98.20 Tympanic 92.00 % 63.00/ min 16.00/min 45608 005 05451 1 367.00 mg/dL 77728 005 05585 2 97.20 Tympanic 05217 005 26112 4 97.20 Tympanic 31023 005 93654 0 69.00 mm[Hg] - Sitting 106.00 mm[Hg] - Sitting 69.00/ min
--- OUTSIDE RECORDS SUMMARY | 2024-10-03 11:26 | External Medical Summary | Continuity Of Care Document ---
Author Name Unknown Address [address] [address] Organization [facility] () Care Team Providers Care Condominium Association Manager Name Role Phone DO Machado Amy Primary Care Provider [phone] Allergies Allergy Reaction Start Date End Date [...] Day 3 0.1 mL 08/29 Active 2023 12670 45024 0 1 time Intrad ermal False Tubersol 5 tub. unit/0.1 mL intradermal injection solution [Tuberculin PPD] 0.1mL Intradermal 1 time For PPD 2nd Step Give 2nd Step PPD Day 1 and Read results Day 3 (schedule 7 days after 1st READ) 0.1mL 09/08 Active 2023 69051 35092 0 1 time Intrad ermal False Humalog [...] order For Diabetes 08/25 Inactiv e 2023 25985 81860 9 4 times a day Subcut aneous False Aspirin 325 mg tablet [generic] 325 By Mouth Twice daily For Anticoagulati on 325 09/25 Active 2023 78526 97613 1 Twice daily By Mouth False Ferrous sulfate 325 mg (65 mg iron) tablet [generic] 325 By Mouth Once daily For anemia 325 2023 Active 2023 45915 49285 5 Once daily By Mouth False Linezolid 600 mg tablet [generic] 600 mg By Mouth Every 12 hours For MRSA INFECTION L BKA 600 mg 08/25 Inactiv e 2023 00910 90754 1 Every 12 hours By Mouth False Cefpodoxime 200 mg tablet [generic] 400 mg By Mouth Twice daily For MRSA INFECTION L BKA 400 mg 08/25 Inactiv e 2023 01373 99188 0 Twice daily By Mouth False Coenzyme Q10 100 mg tablet [generic] 100 mg By Mouth Once daily For SUPP 100 mg 2023 Active 2023 69568 21318 0 Once daily By Mouth False Levothyroxi ne 50 mcg tablet [generic] 50mcg By Mouth Once daily For hypothyroidis m 50mcg 2023 Active 2023 67977 88002 0 Once daily By Mouth False One A Day Men Complete 240 mcg-25 mcg-300 mcg tablet 1 tab By Mouth Once daily For supplement 1 tab 2023 Active 2023 13049 88648 1 Once daily By Mouth False Cholecalcif adalberto (vitamin D3) 50 mcg (2,000 unit) tablet [generic] 1 TAB By Mouth Once daily For SUPP 1 TAB 2023 Active 2023 84492 01612 1 Once daily By Mouth False Cetirizine 10 mg tablet [generic] 1 TAB By Mouth At bedtime For Allergies 1 TAB 2023 Active 2023 06287 07055 0 At bedtime By Mouth False Timolol maleate 0.25 % eye drops [generic] 1 drop Both Eyes Twice daily For glaucoma 1 drop 2023 Active 2023 12129 93653 5 Twice daily Both Eyes False Alendronate 35 mg tablet [generic] 35mg By Mouth Every week For SIADH 35mg 2023 Active 2023 38534 58533 5 Every week By Mouth False Lantus Solostar U-100 Insulin 100 unit/mL (3 mL) subcutaneou s pen 18 units Subcutaneous Every morning For DIABETES 18 units 08/25 Inactiv e 2023 92198 78319 0 Every morning Subcut aneous False Lantus Solostar U-100 Insulin 100 unit/mL (3 mL) subcutaneou s pen 18 units Subcutaneous Every morning For DIABETES 18 units 2023 Active 2023 46161 0 Every morning Subcut aneous False Linezolid 600 mg tablet [generic] 600 mg By Mouth Every 12 hours For MRSA INFECTION L BKA 600 mg 2023 Active 2023 01075 92990 1 Every 12 hours By Mouth False [...] one-time order For Diabetes 2023 Active 2023 26103 77435 9 4 times a day Subcut aneous False Cefpodoxime 200 mg tablet [generic] 400 mg By Mouth Twice daily For MRSA INFECTION L BKA 400 mg 2023 Active 2023 11904 90639 0 Twice daily By Mouth False Brimonidine 0.1 % eye drops [generic] 1 drop Both Eyes Twice daily For glaucoma 1 drop 2023 Active 2023 92402 26983 0 Twice daily Both Eyes False Metoprolol succinate ER 50 mg tablet,exte nded release 24 hr [generic] 50 mg By Mouth Once daily HOLD FOR SBP <100, or pulse <60 For HTN 50 mg 2023 Active 2023 89514 61299 1 Once daily By Mouth False Amlodipine 2.5 mg tablet [generic] 2.5 mg By Mouth Once daily For HTN 2.5 mg 2023 Active 2023 32562 96693 5 Once daily By Mouth False Docusate sodium 100 mg capsule [generic] 100mg By Mouth Twice daily as needed For constipation HOLD FOR LOOSE STOOLS 100mg 2023 Active 2023 67702 62561 1 Twice daily as needed By Mouth False Atorvastati n 40 mg tablet [generic] 40mg By Mouth Once daily For HDL 40mg 08/26 Inactiv e 2023 95893 51244 5 Once daily By Mouth False Tylenol 325 mg tablet 2 tabs By Mouth Every 4 hours as needed For Pain DO NOT EXCEED 3000 MG APAP/24 Hours 2 tabs 2023 Active 2023 12851 89213 0 Every 4 hours as needed By Mouth False Tylenol 325 mg tablet 2 tabs By Mouth Every 4 hours as needed For Fever >100 DO NOT EXCEED 3000 MG APAP/24 Hours 2 tabs 2023 Active 2023 72567 82707 0 Every 4 hours as needed By Mouth False Dulcolax (bisacodyl) 10 mg rectal suppository One Suppository per rectum PRN if Milk of Magnisia ineffective. Give on day 5 of no BM 1 sup 2023 Active 2023 63189 84567 1 Daily as needed Rectal False Fleet Enema 19 gram-7 gram/118 mL Administer per rectum PRN one time if dulcolax suppository not effective. Give on day 6 of no BM 1 2023 Active 2023 59826 83437 6 Daily as needed Rectal False Dextrose 50 % in water (D50W) intravenous solution [generic] Dextrose 50% evonne 20-50 ml (slow push) Intravenous if Glucagon not effective after 15 minutes. CALL 911 for ED Evaluation. 50% evonne 2023 Active 2023 56966 52329 9 Intrav enous False Glucagon (HCl) Emergency Kit 1 mg solution for injection Administer Glucagon 1 mg Intramuscular if 15 minutes after GLucose Gel is administered Glucose remains less than 70 1 mg 2023 Active 2023 93713 99755 2 Intram uscula r False Glucose Gel 40 % oral gel [Dextrose] PRN If resident is unable to swallow (with or without symptoms) and Glucose results less than 70 give GLucose 40% Gel 1 tube orally - Recheck Glucose 15 minutes after administratio n. 1 tube 2023 Active 2023 13310 65974 8 By Mouth False Milk of Magnesia 400 mg/5 mL oral suspension [Magnesium hydroxide] PRN 30ml By Mouth Daily as needed for constipation one time daily if no BM, on day 4 of no BM (PRN refer to instructions) For Constipation 30 mL 2023 Active 2023 81503 03465 6 Daily as needed By Mouth False Atorvastati n 40 mg tablet [generic] 08/26 Inactiv e 2023 54097 84209 5 Atorvastati n 40 mg tablet [generic] 40mg By Mouth Once daily For HDL 40mg 2023 Active 2023 34592 80923 5 Once daily By Mouth False MediHoney HCS 4 1/2in X 4 1/2in bandage Cleanse area with NSS, apply one medihoney hydrocolloid dressing, non adherent dressing, kerlix secure with paper tape daily. For wound stage III 1 2023 Active 2023 11034 33256 1 Once daily Topica l False VITAL SIGNS Date Time Diastolic blood pressure Systolic blood pressure Body height Body weight Temperature SpO2 Blood Sugar Pulse Respirations 004 64936 8 67.00 mm[Hg] - Sitting 145.00 mm[Hg] - Sitting 98.50 Forehead Scan 96.00 % 81.00/ min 16.00/min 98190 004 77466 2 67.00 mm[Hg] - Sitting 145.00 mm[Hg] - Sitting 98.50 Tympanic 81.00/ min 16.00/min 80767 004 29019 5 56.00 mm[Hg] - Sitting 142.00 mm[Hg] - Sitting 136.40 NI 100.20 Tympanic 96.00 % 92.00/ min 18.00/min 00498 004 32415 6 13226 004 84800 4 143.00 mg/dL 04554 004 34493 0 97.80 Tympanic 39829 005 36955 7 60.00 mm[Hg] - Sitting 140.00 mm[Hg] - Sitting 98.00 Tympanic 84.00/ min 18.00/min 59735 005 10522 0 63.00 mm[Hg] - Sitting 141.00 mm[Hg] - Sitting 98.20 Tympanic 92.00 % 63.00/ min 16.00/min 18008 005 43812 8 69.00 mm[Hg] - Sitting 106.00 mm[Hg] - Sitting 97.20 Tympanic 42754 005 60137 1 367.00 mg/dL 85957 005 16310 2 97.20 Tympanic 72776 005 86739 4 97.20 Tympanic 67105 005 48208 0 69.00 mm[Hg] - Sitting 106.00 mm[Hg] - Sitting 69.00/ min 92143 005 85471 3 452.00 mg/dL 83669 005 49837 3 452.00 mg/dL
--- OUTSIDE RECORDS SUMMARY | 2024-10-03 11:26 | External Medical Summary | Continuity Of Care Document ---
Author Name Unknown Address [address] [address] Organization [facility] () Care Team Providers Care Application Support Analyst Name Role Phone DO Machado Amy Primary Care Provider [phone] Allergies Allergy Reaction Start Date End Date [...] Day 3 0.1 mL 08/29 Active 2023 33104 60913 0 1 time Intrad ermal False Tubersol 5 tub. unit/0.1 mL intradermal injection solution [Tuberculin PPD] 0.1mL Intradermal 1 time For PPD 2nd Step Give 2nd Step PPD Day 1 and Read results Day 3 (schedule 7 days after 1st READ) 0.1mL 09/08 Active 2023 79772 24074 0 1 time Intrad ermal False Humalog [...] order For Diabetes 08/25 Inactiv e 2023 38791 29195 9 4 times a day Subcut aneous False Aspirin 325 mg tablet [generic] 325 By Mouth Twice daily For Anticoagulati on 325 09/25 Active 2023 28298 12624 1 Twice daily By Mouth False Ferrous sulfate 325 mg (65 mg iron) tablet [generic] 325 By Mouth Once daily For anemia 325 2023 Active 2023 59965 69379 5 Once daily By Mouth False Linezolid 600 mg tablet [generic] 600 mg By Mouth Every 12 hours For MRSA INFECTION L BKA 600 mg 08/25 Inactiv e 2023 93886 00137 1 Every 12 hours By Mouth False Cefpodoxime 200 mg tablet [generic] 400 mg By Mouth Twice daily For MRSA INFECTION L BKA 400 mg 08/25 Inactiv e 2023 89139 17036 0 Twice daily By Mouth False Coenzyme Q10 100 mg tablet [generic] 100 mg By Mouth Once daily For SUPP 100 mg 2023 Active 2023 59919 57218 0 Once daily By Mouth False Levothyroxi ne 50 mcg tablet [generic] 50mcg By Mouth Once daily For hypothyroidis m 50mcg 2023 Active 2023 50847 35153 0 Once daily By Mouth False One A Day Men Complete 240 mcg-25 mcg-300 mcg tablet 1 tab By Mouth Once daily For supplement 1 tab 2023 Active 2023 32621 08453 1 Once daily By Mouth False Cholecalcif adalberto (vitamin D3) 50 mcg (2,000 unit) tablet [generic] 1 TAB By Mouth Once daily For SUPP 1 TAB 2023 Active 2023 10284 09495 1 Once daily By Mouth False Cetirizine 10 mg tablet [generic] 1 TAB By Mouth At bedtime For Allergies 1 TAB 2023 Active 2023 91692 93047 0 At bedtime By Mouth False Timolol maleate 0.25 % eye drops [generic] 1 drop Both Eyes Twice daily For glaucoma 1 drop 2023 Active 2023 18598 11318 5 Twice daily Both Eyes False Alendronate 35 mg tablet [generic] 35mg By Mouth Every week For SIADH 35mg 2023 Active 2023 09589 41306 5 Every week By Mouth False Lantus Solostar U-100 Insulin 100 unit/mL (3 mL) subcutaneou s pen 18 units Subcutaneous Every morning For DIABETES 18 units 08/25 Inactiv e 2023 36263 90893 0 Every morning Subcut aneous False Lantus Solostar U-100 Insulin 100 unit/mL (3 mL) subcutaneou s pen 18 units Subcutaneous Every morning For DIABETES 18 units 2023 Active 2023 74685 0 Every morning Subcut aneous False Linezolid 600 mg tablet [generic] 600 mg By Mouth Every 12 hours For MRSA INFECTION L BKA 600 mg 2023 Active 2023 90594 57111 1 Every 12 hours By Mouth False [...] one-time order For Diabetes 2023 Active 2023 35524 06808 9 4 times a day Subcut aneous False Cefpodoxime 200 mg tablet [generic] 400 mg By Mouth Twice daily For MRSA INFECTION L BKA 400 mg 2023 Active 2023 62572 93646 0 Twice daily By Mouth False Brimonidine 0.1 % eye drops [generic] 1 drop Both Eyes Twice daily For glaucoma 1 drop 2023 Active 2023 32114 19386 0 Twice daily Both Eyes False Metoprolol succinate ER 50 mg tablet,exte nded release 24 hr [generic] 50 mg By Mouth Once daily HOLD FOR SBP <100, or pulse <60 For HTN 50 mg 2023 Active 2023 20939 49571 1 Once daily By Mouth False Amlodipine 2.5 mg tablet [generic] 2.5 mg By Mouth Once daily For HTN 2.5 mg 2023 Active 2023 73475 58971 5 Once daily By Mouth False Docusate sodium 100 mg capsule [generic] 100mg By Mouth Twice daily as needed For constipation HOLD FOR LOOSE STOOLS 100mg 2023 Active 2023 63959 63910 1 Twice daily as needed By Mouth False Atorvastati n 40 mg tablet [generic] 40mg By Mouth Once daily For HDL 40mg 2023 Active 2023 87229 21034 5 Once daily By Mouth False Tylenol 325 mg tablet 2 tabs By Mouth Every 4 hours as needed For Pain DO NOT EXCEED 3000 MG APAP/24 Hours 2 tabs 2023 Active 2023 60366 53662 0 Every 4 hours as needed By Mouth False Tylenol 325 mg tablet 2 tabs By Mouth Every 4 hours as needed For Fever >100 DO NOT EXCEED 3000 MG APAP/24 Hours 2 tabs 2023 Active 2023 68509 26635 0 Every 4 hours as needed By Mouth False Dulcolax (bisacodyl) 10 mg rectal suppository One Suppository per rectum PRN if Milk of Magnisia ineffective. Give on day 5 of no BM 1 sup 2023 Active 2023 72443 40190 1 Daily as needed Rectal False Fleet Enema 19 gram-7 gram/118 mL Administer per rectum PRN one time if dulcolax suppository not effective. Give on day 6 of no BM 1 2023 Active 2023 45167 92001 6 Daily as needed Rectal False Dextrose 50 % in water (D50W) intravenous solution [generic] Dextrose 50% evonne 20-50 ml (slow push) Intravenous if Glucagon not effective after 15 minutes. CALL 911 for ED Evaluation. 50% evonne 2023 Active 2023 31680 92705 9 Intrav enous False Glucagon (HCl) Emergency Kit 1 mg solution for injection Administer Glucagon 1 mg Intramuscular if 15 minutes after GLucose Gel is administered Glucose remains less than 70 1 mg 2023 Active 2023 71751 31215 2 Intram uscula r False Glucose Gel 40 % oral gel [Dextrose] PRN If resident is unable to swallow (with or without symptoms) and Glucose results less than 70 give GLucose 40% Gel 1 tube orally - Recheck Glucose 15 minutes after administratio n. 1 tube 2023 Active 2023 49308 87852 8 By Mouth False Milk of Magnesia 400 mg/5 mL oral suspension [Magnesium hydroxide] PRN 30ml By Mouth Daily as needed for constipation one time daily if no BM, on day 4 of no BM (PRN refer to instructions) For Constipation 30 mL 2023 Active 2023 99021 74387 6 Daily as needed By Mouth False VITAL SIGNS Date Time Diastolic blood pressure Systolic blood pressure Body height Body weight Temperature SpO2 Blood Sugar Pulse Respirations 35612 8 67.00 mm[Hg] - Sitting 145.00 mm[Hg] - Sitting 98.50 Forehead Scan 96.00 % 81.00/ min 16.00/min 47733 2 67.00 mm[Hg] - Sitting 145.00 mm[Hg] - Sitting 98.50 Tympanic 81.00/ min 16.00/min 40719 5 56.00 mm[Hg] - Sitting 142.00 mm[Hg] - Sitting 136.40 NI 100.20 Tympanic 96.00 % 92.00/ min 18.00/min 91 6 4 143.00 mg/dL 0 97.80 Tympanic
--- OUTSIDE RECORDS SUMMARY | 2024-10-03 11:26 | External Medical Summary | Continuity Of Care Document ---
Author Name Unknown Address [address] [address] Organization [facility] () Care Team Providers Care Products Mechanical Design Engineer Name Role Phone DO Machado Amy Primary Care Provider [phone] Allergies Allergy Reaction Start Date End Date [...] Day 3 0.1 mL 08/29 Active 2023 74079 64588 0 1 time Intrad ermal False Tubersol 5 tub. unit/0.1 mL intradermal injection solution [Tuberculin PPD] 0.1mL Intradermal 1 time For PPD 2nd Step Give 2nd Step PPD Day 1 and Read results Day 3 (schedule 7 days after 1st READ) 0.1mL 09/08 Active 2023 98148 08780 0 1 time Intrad ermal False Humalog [...] order For Diabetes 08/25 Inactiv e 2023 97575 91770 9 4 times a day Subcut aneous False Aspirin 325 mg tablet [generic] 325 By Mouth Twice daily For Anticoagulati on 325 09/25 Active 2023 71437 85698 1 Twice daily By Mouth False Ferrous sulfate 325 mg (65 mg iron) tablet [generic] 325 By Mouth Once daily For anemia 325 2023 Active 2023 50389 47982 5 Once daily By Mouth False Linezolid 600 mg tablet [generic] 600 mg By Mouth Every 12 hours For MRSA INFECTION L BKA 600 mg 08/25 Inactiv e 2023 11238 88210 1 Every 12 hours By Mouth False Cefpodoxime 200 mg tablet [generic] 400 mg By Mouth Twice daily For MRSA INFECTION L BKA 400 mg 08/25 Inactiv e 2023 85379 86203 0 Twice daily By Mouth False Coenzyme Q10 100 mg tablet [generic] 100 mg By Mouth Once daily For SUPP 100 mg 2023 Active 2023 06026 77974 0 Once daily By Mouth False Levothyroxi ne 50 mcg tablet [generic] 50mcg By Mouth Once daily For hypothyroidis m 50mcg 2023 Active 2023 44686 88631 0 Once daily By Mouth False One A Day Men Complete 240 mcg-25 mcg-300 mcg tablet 1 tab By Mouth Once daily For supplement 1 tab 2023 Active 2023 65316 11534 1 Once daily By Mouth False Cholecalcif adalberto (vitamin D3) 50 mcg (2,000 unit) tablet [generic] 1 TAB By Mouth Once daily For SUPP 1 TAB 2023 Active 2023 13196 39085 1 Once daily By Mouth False Cetirizine 10 mg tablet [generic] 1 TAB By Mouth At bedtime For Allergies 1 TAB 2023 Active 2023 86275 44585 0 At bedtime By Mouth False Timolol maleate 0.25 % eye drops [generic] 1 drop Both Eyes Twice daily For glaucoma 1 drop 2023 Active 2023 71856 15058 5 Twice daily Both Eyes False Alendronate 35 mg tablet [generic] 35mg By Mouth Every week For SIADH 35mg 2023 Active 2023 88900 87215 5 Every week By Mouth False Lantus Solostar U-100 Insulin 100 unit/mL (3 mL) subcutaneou s pen 18 units Subcutaneous Every morning For DIABETES 18 units 08/25 Inactiv e 2023 92170 15550 0 Every morning Subcut aneous False Lantus Solostar U-100 Insulin 100 unit/mL (3 mL) subcutaneou s pen 18 units Subcutaneous Every morning For DIABETES 18 units 2023 Active 2023 73733 0 Every morning Subcut aneous False Linezolid 600 mg tablet [generic] 600 mg By Mouth Every 12 hours For MRSA INFECTION L BKA 600 mg 2023 Active 2023 82850 85439 1 Every 12 hours By Mouth False [...] one-time order For Diabetes 2023 Active 2023 16682 82039 9 4 times a day Subcut aneous False Cefpodoxime 200 mg tablet [generic] 400 mg By Mouth Twice daily For MRSA INFECTION L BKA 400 mg 2023 Active 2023 33496 04017 0 Twice daily By Mouth False Brimonidine 0.1 % eye drops [generic] 1 drop Both Eyes Twice daily For glaucoma 1 drop 2023 Active 2023 30974 46771 0 Twice daily Both Eyes False Metoprolol succinate ER 50 mg tablet,exte nded release 24 hr [generic] 50 mg By Mouth Once daily HOLD FOR SBP <100, or pulse <60 For HTN 50 mg 2023 Active 2023 96809 33902 1 Once daily By Mouth False Amlodipine 2.5 mg tablet [generic] 2.5 mg By Mouth Once daily For HTN 2.5 mg 2023 Active 2023 93336 48571 5 Once daily By Mouth False Docusate sodium 100 mg capsule [generic] 100mg By Mouth Twice daily as needed For constipation HOLD FOR LOOSE STOOLS 100mg 2023 Active 2023 53320 93490 1 Twice daily as needed By Mouth False Atorvastati n 40 mg tablet [generic] 40mg By Mouth Once daily For HDL 40mg 2023 Active 2023 66791 86669 5 Once daily By Mouth False Tylenol 325 mg tablet 2 tabs By Mouth Every 4 hours as needed For Pain DO NOT EXCEED 3000 MG APAP/24 Hours 2 tabs 2023 Active 2023 65450 51009 0 Every 4 hours as needed By Mouth False Tylenol 325 mg tablet 2 tabs By Mouth Every 4 hours as needed For Fever >100 DO NOT EXCEED 3000 MG APAP/24 Hours 2 tabs 2023 Active 2023 10011 33751 0 Every 4 hours as needed By Mouth False Dulcolax (bisacodyl) 10 mg rectal suppository One Suppository per rectum PRN if Milk of Magnisia ineffective. Give on day 5 of no BM 1 sup 2023 Active 2023 54504 81946 1 Daily as needed Rectal False Fleet Enema 19 gram-7 gram/118 mL Administer per rectum PRN one time if dulcolax suppository not effective. Give on day 6 of no BM 1 2023 Active 2023 53273 52411 6 Daily as needed Rectal False Dextrose 50 % in water (D50W) intravenous solution [generic] Dextrose 50% evonne 20-50 ml (slow push) Intravenous if Glucagon not effective after 15 minutes. CALL 911 for ED Evaluation. 50% evonne 2023 Active 2023 96688 92274 9 Intrav enous False Glucagon (HCl) Emergency Kit 1 mg solution for injection Administer Glucagon 1 mg Intramuscular if 15 minutes after GLucose Gel is administered Glucose remains less than 70 1 mg 2023 Active 2023 73114 96424 2 Intram uscula r False Glucose Gel 40 % oral gel [Dextrose] PRN If resident is unable to swallow (with or without symptoms) and Glucose results less than 70 give GLucose 40% Gel 1 tube orally - Recheck Glucose 15 minutes after administratio n. 1 tube 2023 Active 2023 34389 66397 8 By Mouth False Milk of Magnesia 400 mg/5 mL oral suspension [Magnesium hydroxide] PRN 30ml By Mouth Daily as needed for constipation one time daily if no BM, on day 4 of no BM (PRN refer to instructions) For Constipation 30 mL 2023 Active 2023 70782 40936 6 Daily as needed By Mouth False VITAL SIGNS Date Time Diastolic blood pressure Systolic blood pressure Body height Body weight Temperature SpO2 Blood Sugar Pulse Respirations 83793 8 67.00 mm[Hg] - Sitting 145.00 mm[Hg] - Sitting 98.50 Forehead Scan 96.00 % 81.00/ min 16.00/min 58160 2 67.00 mm[Hg] - Sitting 145.00 mm[Hg] - Sitting 98.50 Tympanic 81.00/ min 16.00/min 94567 5 56.00 mm[Hg] - Sitting 142.00 mm[Hg] - Sitting 136.40 NI 100.20 Tympanic 96.00 % 92.00/ min 18.00/min
--- OUTSIDE RECORDS SUMMARY | 2024-10-03 11:26 | External Medical Summary | Continuity Of Care Document ---
Author Name Unknown Address [address] [facility] () Care Team Providers Care Band Saw Filer Name Role Phone DO Machado Amy Primary Care Provider [phone] Allergies Allergy Reaction Start Date End Date [...] Day 3 0.1 mL 08/29 Active 2023 06098 09950 0 1 time Intrad ermal False Tubersol 5 tub. unit/0.1 mL intradermal injection solution [Tuberculin PPD] 0.1mL Intradermal 1 time For PPD 2nd Step Give 2nd Step PPD Day 1 and Read results Day 3 (schedule 7 days after 1st READ) 0.1mL 09/08 Active 2023 10075 05477 0 1 time Intrad ermal False Humalog [...] order For Diabetes 08/25 Inactiv e 2023 27159 11819 9 4 times a day Subcut aneous False Aspirin 325 mg tablet [generic] 325 By Mouth Twice daily For Anticoagulati on 325 09/25 Active 2023 94125 22228 1 Twice daily By Mouth False Ferrous sulfate 325 mg (65 mg iron) tablet [generic] 325 By Mouth Once daily For anemia 325 2023 Active 2023 90295 87035 5 Once daily By Mouth False Linezolid 600 mg tablet [generic] 600 mg By Mouth Every 12 hours For MRSA INFECTION L BKA 600 mg 08/25 Inactiv e 2023 00972 03969 1 Every 12 hours By Mouth False Cefpodoxime 200 mg tablet [generic] 400 mg By Mouth Twice daily For MRSA INFECTION L BKA 400 mg 08/25 Inactiv e 2023 27734 52541 0 Twice daily By Mouth False Coenzyme Q10 100 mg tablet [generic] 100 mg By Mouth Once daily For SUPP 100 mg 2023 Active 2023 01412 91093 0 Once daily By Mouth False Levothyroxi ne 50 mcg tablet [generic] 50mcg By Mouth Once daily For hypothyroidis m 50mcg 2023 Active 2023 44499 63815 0 Once daily By Mouth False One A Day Men Complete 240 mcg-25 mcg-300 mcg tablet 1 tab By Mouth Once daily For supplement 1 tab 2023 Active 2023 44322 68775 1 Once daily By Mouth False Cholecalcif adalberto (vitamin D3) 50 mcg (2,000 unit) tablet [generic] 1 TAB By Mouth Once daily For SUPP 1 TAB 2023 Active 2023 06888 89377 1 Once daily By Mouth False Cetirizine 10 mg tablet [generic] 1 TAB By Mouth At bedtime For Allergies 1 TAB 2023 Active 2023 00258 62143 0 At bedtime By Mouth False Timolol maleate 0.25 % eye drops [generic] 1 drop Both Eyes Twice daily For glaucoma 1 drop 2023 Active 2023 26655 42466 5 Twice daily Both Eyes False Alendronate 35 mg tablet [generic] 35mg By Mouth Every week For SIADH 35mg 2023 Active 2023 17013 64685 5 Every week By Mouth False Lantus Solostar U-100 Insulin 100 unit/mL (3 mL) subcutaneou s pen 18 units Subcutaneous Every morning For DIABETES 18 units 08/25 Inactiv e 2023 91302 55756 0 Every morning Subcut aneous False Lantus Solostar U-100 Insulin 100 unit/mL (3 mL) subcutaneou s pen 18 units Subcutaneous Every morning For DIABETES 18 units 2023 Active 2023 27616 0 Every morning Subcut aneous False Linezolid 600 mg tablet [generic] 600 mg By Mouth Every 12 hours For MRSA INFECTION L BKA 600 mg 2023 Active 2023 23322 79769 1 Every 12 hours By Mouth False [...] one-time order For Diabetes 2023 Active 2023 49820 05095 9 4 times a day Subcut aneous False Cefpodoxime 200 mg tablet [generic] 400 mg By Mouth Twice daily For MRSA INFECTION L BKA 400 mg 2023 Active 2023 34202 31712 0 Twice daily By Mouth False Brimonidine 0.1 % eye drops [generic] 1 drop Both Eyes Twice daily For glaucoma 1 drop 2023 Active 2023 80721 27612 0 Twice daily Both Eyes False Metoprolol succinate ER 50 mg tablet,exte nded release 24 hr [generic] 50 mg By Mouth Once daily HOLD FOR SBP <100, or pulse <60 For HTN 50 mg 2023 Active 2023 33987 05637 1 Once daily By Mouth False Amlodipine 2.5 mg tablet [generic] 2.5 mg By Mouth Once daily For HTN 2.5 mg 2023 Active 2023 45463 89106 5 Once daily By Mouth False Docusate sodium 100 mg capsule [generic] 100mg By Mouth Twice daily as needed For constipation HOLD FOR LOOSE STOOLS 100mg 2023 Active 2023 91660 97286 1 Twice daily as needed By Mouth False Atorvastati n 40 mg tablet [generic] 40mg By Mouth Once daily For HDL 40mg 2023 Active 2023 53757 56116 5 Once daily By Mouth False Tylenol 325 mg tablet 2 tabs By Mouth Every 4 hours as needed For Pain DO NOT EXCEED 3000 MG APAP/24 Hours 2 tabs 2023 Active 2023 71631 45344 0 Every 4 hours as needed By Mouth False Tylenol 325 mg tablet 2 tabs By Mouth Every 4 hours as needed For Fever >100 DO NOT EXCEED 3000 MG APAP/24 Hours 2 tabs 2023 Active 2023 11236 74939 0 Every 4 hours as needed By Mouth False Dulcolax (bisacodyl) 10 mg rectal suppository One Suppository per rectum PRN if Milk of Magnisia ineffective. Give on day 5 of no BM 1 sup 2023 Active 2023 87921 55656 1 Daily as needed Rectal False Fleet Enema 19 gram-7 gram/118 mL Administer per rectum PRN one time if dulcolax suppository not effective. Give on day 6 of no BM 1 2023 Active 2023 96912 01582 6 Daily as needed Rectal False Dextrose 50 % in water (D50W) intravenous solution [generic] Dextrose 50% evonne 20-50 ml (slow push) Intravenous if Glucagon not effective after 15 minutes. CALL 911 for ED Evaluation. 50% evonne 2023 Active 2023 49724 20247 9 Intrav enous False Glucagon (HCl) Emergency Kit 1 mg solution for injection Administer Glucagon 1 mg Intramuscular if 15 minutes after GLucose Gel is administered Glucose remains less than 70 1 mg 2023 Active 2023 07550 01198 2 Intram uscula r False Glucose Gel 40 % oral gel [Dextrose] PRN If resident is unable to swallow (with or without symptoms) and Glucose results less than 70 give GLucose 40% Gel 1 tube orally - Recheck Glucose 15 minutes after administratio n. 1 tube 2023 Active 2023 48644 14068 8 By Mouth False Milk of Magnesia 400 mg/5 mL oral suspension [Magnesium hydroxide] PRN 30ml By Mouth Daily as needed for constipation one time daily if no BM, on day 4 of no BM (PRN refer to instructions) For Constipation 30 mL 2023 Active 2023 41249 35293 6 Daily as needed By Mouth False VITAL SIGNS Date Time Diastolic blood pressure Systolic blood pressure Body height Body weight Temperature SpO2 Blood Sugar Pulse Respirations 51671 8 67.00 mm[Hg] - Sitting 145.00 mm[Hg] - Sitting 98.50 Forehead Scan 96.00 % 81.00/ min 16.00/min 47296 2 67.00 mm[Hg] - Sitting 145.00 mm[Hg] - Sitting 98.50 Tympanic 81.00/ min 16.00/min 18956 5 56.00 mm[Hg] - Sitting 142.00 mm[Hg] - Sitting 136.40 NI 100.20 Tympanic 96.00 % 92.00/ min 18.00/min
--- OUTSIDE RECORDS SUMMARY | 2024-10-03 11:26 | External Medical Summary | Continuity Of Care Document ---
Author Name Unknown Address [address] [address] Organization [facility] () Care Team Providers Care Newspaper Managing Editor Name Role Phone DO Machado Amy Primary Care Provider [phone] Allergies Allergy Reaction Start Date End Date [...] Day 3 0.1 mL 08/29 Active 2023 82609 93925 0 1 time Intrad ermal False Tubersol 5 tub. unit/0.1 mL intradermal injection solution [Tuberculin PPD] 0.1mL Intradermal 1 time For PPD 2nd Step Give 2nd Step PPD Day 1 and Read results Day 3 (schedule 7 days after 1st READ) 0.1mL 09/08 Active 2023 65258 44594 0 1 time Intrad ermal False Humalog [...] order For Diabetes 08/25 Inactiv e 2023 63873 26539 9 4 times a day Subcut aneous False Aspirin 325 mg tablet [generic] 325 By Mouth Twice daily For Anticoagulati on 325 09/25 Active 2023 70539 53728 1 Twice daily By Mouth False Ferrous sulfate 325 mg (65 mg iron) tablet [generic] 325 By Mouth Once daily For anemia 325 2023 Active 2023 57584 48407 5 Once daily By Mouth False Linezolid 600 mg tablet [generic] 600 mg By Mouth Every 12 hours For MRSA INFECTION L BKA 600 mg 08/25 Inactiv e 2023 39075 80620 1 Every 12 hours By Mouth False Cefpodoxime 200 mg tablet [generic] 400 mg By Mouth Twice daily For MRSA INFECTION L BKA 400 mg 08/25 Inactiv e 2023 36220 37064 0 Twice daily By Mouth False Coenzyme Q10 100 mg tablet [generic] 100 mg By Mouth Once daily For SUPP 100 mg 2023 Active 2023 04638 83091 0 Once daily By Mouth False Levothyroxi ne 50 mcg tablet [generic] 50mcg By Mouth Once daily For hypothyroidis m 50mcg 2023 Active 2023 40804 18021 0 Once daily By Mouth False One A Day Men Complete 240 mcg-25 mcg-300 mcg tablet 1 tab By Mouth Once daily For supplement 1 tab 2023 Active 2023 47044 65461 1 Once daily By Mouth False Cholecalcif adalberto (vitamin D3) 50 mcg (2,000 unit) tablet [generic] 1 TAB By Mouth Once daily For SUPP 1 TAB 2023 Active 2023 91511 75974 1 Once daily By Mouth False Cetirizine 10 mg tablet [generic] 1 TAB By Mouth At bedtime For Allergies 1 TAB 2023 Active 2023 20240 30365 0 At bedtime By Mouth False Timolol maleate 0.25 % eye drops [generic] 1 drop Both Eyes Twice daily For glaucoma 1 drop 2023 Active 2023 57473 84881 5 Twice daily Both Eyes False Alendronate 35 mg tablet [generic] 35mg By Mouth Every week For SIADH 35mg 2023 Active 2023 91929 87663 5 Every week By Mouth False Lantus Solostar U-100 Insulin 100 unit/mL (3 mL) subcutaneou s pen 18 units Subcutaneous Every morning For DIABETES 18 units 08/25 Inactiv e 2023 23170 28068 0 Every morning Subcut aneous False Lantus Solostar U-100 Insulin 100 unit/mL (3 mL) subcutaneou s pen 18 units Subcutaneous Every morning For DIABETES 18 units 2023 Active 2023 83745 0 Every morning Subcut aneous False Linezolid 600 mg tablet [generic] 600 mg By Mouth Every 12 hours For MRSA INFECTION L BKA 600 mg 2023 Active 2023 32867 10328 1 Every 12 hours By Mouth False [...] one-time order For Diabetes 2023 Active 2023 61701 98598 9 4 times a day Subcut aneous False Cefpodoxime 200 mg tablet [generic] 400 mg By Mouth Twice daily For MRSA INFECTION L BKA 400 mg 2023 Active 2023 45151 75588 0 Twice daily By Mouth False Brimonidine 0.1 % eye drops [generic] 1 drop Both Eyes Twice daily For glaucoma 1 drop 2023 Active 2023 91452 87808 0 Twice daily Both Eyes False Metoprolol succinate ER 50 mg tablet,exte nded release 24 hr [generic] 50 mg By Mouth Once daily HOLD FOR SBP <100, or pulse <60 For HTN 50 mg 2023 Active 2023 90683 32937 1 Once daily By Mouth False Amlodipine 2.5 mg tablet [generic] 2.5 mg By Mouth Once daily For HTN 2.5 mg 2023 Active 2023 50838 94791 5 Once daily By Mouth False Docusate sodium 100 mg capsule [generic] 100mg By Mouth Twice daily as needed For constipation HOLD FOR LOOSE STOOLS 100mg 2023 Active 2023 41350 71502 1 Twice daily as needed By Mouth False Atorvastati n 40 mg tablet [generic] 40mg By Mouth Once daily For HDL 40mg 08/26 Inactiv e 2023 37466 94885 5 Once daily By Mouth False Tylenol 325 mg tablet 2 tabs By Mouth Every 4 hours as needed For Pain DO NOT EXCEED 3000 MG APAP/24 Hours 2 tabs 2023 Active 2023 32673 51819 0 Every 4 hours as needed By Mouth False Tylenol 325 mg tablet 2 tabs By Mouth Every 4 hours as needed For Fever >100 DO NOT EXCEED 3000 MG APAP/24 Hours 2 tabs 2023 Active 2023 41062 94015 0 Every 4 hours as needed By Mouth False Dulcolax (bisacodyl) 10 mg rectal suppository One Suppository per rectum PRN if Milk of Magnisia ineffective. Give on day 5 of no BM 1 sup 2023 Active 2023 85525 64233 1 Daily as needed Rectal False Fleet Enema 19 gram-7 gram/118 mL Administer per rectum PRN one time if dulcolax suppository not effective. Give on day 6 of no BM 1 2023 Active 2023 68325 58941 6 Daily as needed Rectal False Dextrose 50 % in water (D50W) intravenous solution [generic] Dextrose 50% evonne 20-50 ml (slow push) Intravenous if Glucagon not effective after 15 minutes. CALL 911 for ED Evaluation. 50% evonne 2023 Active 2023 09354 56224 9 Intrav enous False Glucagon (HCl) Emergency Kit 1 mg solution for injection Administer Glucagon 1 mg Intramuscular if 15 minutes after GLucose Gel is administered Glucose remains less than 70 1 mg 2023 Active 2023 13334 70243 2 Intram uscula r False Glucose Gel 40 % oral gel [Dextrose] PRN If resident is unable to swallow (with or without symptoms) and Glucose results less than 70 give GLucose 40% Gel 1 tube orally - Recheck Glucose 15 minutes after administratio n. 1 tube 2023 Active 2023 38073 64424 8 By Mouth False Milk of Magnesia 400 mg/5 mL oral suspension [Magnesium hydroxide] PRN 30ml By Mouth Daily as needed for constipation one time daily if no BM, on day 4 of no BM (PRN refer to instructions) For Constipation 30 mL 2023 Active 2023 59003 69607 6 Daily as needed By Mouth False Atorvastati n 40 mg tablet [generic] 08/26 Inactiv e 2023 46667 22672 5 Atorvastati n 40 mg tablet [generic] 40mg By Mouth Once daily For HDL 40mg 2023 Active 2023 06362 62812 5 Once daily By Mouth False MediHoney HCS 4 1/2in X 4 1/2in bandage Cleanse area with NSS, apply medihoney hydrocolloid dressing, non adherent dressing, kerlix secure with paper tape daily. For wound stage III 2023 Active 2023 08337 84854 1 Once daily Topica l False VITAL SIGNS Date Time Diastolic blood pressure Systolic blood pressure Body height Body weight Temperature SpO2 Blood Sugar Pulse Respirations 06015 004 28466 8 67.00 mm[Hg] - Sitting 145.00 mm[Hg] - Sitting 98.50 Forehead Scan 96.00 % 81.00/ min 16.00/min 004 14086 2 67.00 mm[Hg] - Sitting 145.00 mm[Hg] - Sitting 98.50 Tympanic 81.00/ min 16.00/min 55130 004 55858 5 56.00 mm[Hg] - Sitting 142.00 mm[Hg] - Sitting 136.40 NI 100.20 Tympanic 96.00 % 92.00/ min 18.00/min 94369 004 33905 6 77374 004 07070 4 143.00 mg/dL 80002 004 77680 0 97.80 Tympanic 34436 005 33950 7 60.00 mm[Hg] - Sitting 140.00 mm[Hg] - Sitting 98.00 Tympanic 84.00/ min 18.00/min 97206 005 42615 0 63.00 mm[Hg] - Sitting 141.00 mm[Hg] - Sitting 98.20 Tympanic 92.00 % 63.00/ min 16.00/min 70939 005 10795 8 69.00 mm[Hg] - Sitting 106.00 mm[Hg] - Sitting 97.20 Tympanic 45346 005 05436 1 367.00 mg/dL 96357 005 19906 2 97.20 Tympanic 60713 005 14469 4 97.20 Tympanic 50519 005 66841 0 69.00 mm[Hg] - Sitting 106.00 mm[Hg] - Sitting 69.00/ min 81888 005 84338 3 452.00 mg/dL 36468 005 15500 3 452.00 mg/dL
--- OUTSIDE RECORDS SUMMARY | 2024-10-03 11:26 | External Medical Summary | Continuity Of Care Document ---
Author Name Unknown Address [address] [address] Organization [facility] () Care Team Providers Care Md Pediatric Allergist Name Role Phone DO Machado Amy Primary Care Provider [phone] Allergies Allergy Reaction Start Date End Date [...] one-time order For Diabetes 2023 Active 2023 29955 11665 9 4 times a day Subcut aneous False Aspirin 325 mg tablet [generic] 325 By Mouth Twice daily For Anticoagulati on 325 09/25 Active 2023 18966 94712 1 Twice daily By Mouth False Ferrous sulfate 325 mg (65 mg iron) tablet [generic] 325 By Mouth Once daily For anemia 325 2023 Active 2023 26068 62829 5 Once daily By Mouth False Linezolid 600 mg tablet [generic] 600 mg By Mouth Every 12 hours For MRSA INFECTION L BKA 600 mg 08/25 Inactiv e 2023 68551 63624 1 Every 12 hours By Mouth False Cefpodoxime 200 mg tablet [generic] 400 mg By Mouth Twice daily For MRSA INFECTION L BKA 400 mg 08/31 Active 2023 05784 29318 0 Twice daily By Mouth False Coenzyme Q10 100 mg tablet [generic] 100 mg By Mouth Once daily For SUPP 100 mg 2023 Active 2023 67134 74096 0 Once daily By Mouth False Levothyroxi ne 50 mcg tablet [generic] 50mcg By Mouth Once daily For hypothyroidis m 50mcg 2023 Active 2023 83000 35079 0 Once daily By Mouth False One A Day Men Complete 240 mcg-25 mcg-300 mcg tablet 1 tab By Mouth Once daily For supplement 1 tab 2023 Active 2023 68566 70596 1 Once daily By Mouth False Cholecalcif adalberto (vitamin D3) 50 mcg (2,000 unit) tablet [generic] 1 TAB By Mouth Once daily For SUPP 1 TAB 2023 Active 2023 67127 12214 1 Once daily By Mouth False Cetirizine 10 mg tablet [generic] 1 TAB By Mouth At bedtime For Allergies 1 TAB 2023 Active 2023 93622 15800 0 At bedtime By Mouth False Timolol maleate 0.25 % eye drops [generic] 1 drop Both Eyes Twice daily For glaucoma 1 drop 2023 Active 2023 63328 76371 5 Twice daily Both Eyes False Alendronate 35 mg tablet [generic] 35mg By Mouth Every week For SIADH 35mg 2023 Active 2023 70916 98085 5 Every week By Mouth False Lantus Solostar U-100 Insulin 100 unit/mL (3 mL) subcutaneou s pen 18 units Subcutaneous Every morning For DIABETES 18 units 08/25 Inactiv e 2023 77032 62089 0 Every morning Subcut aneous False Lantus Solostar U-100 Insulin 100 unit/mL (3 mL) subcutaneou s pen 18 units Subcutaneous Every morning For DIABETES 18 units 2023 Active 2023 70641 08601 0 Every morning Subcut aneous False Linezolid 600 mg tablet [generic] 600 mg By Mouth Every 12 hours For MRSA INFECTION L BKA 600 mg 2023 Active 2023 96690 47856 1 Every 12 hours By Mouth False VITAL SIGNS Date Time Diastolic blood pressure Systolic blood pressure Body height Body weight Temperature SpO2 Blood Sugar Pulse Respirations 8 67.00 mm[Hg] - Sitting 145.00 mm[Hg] - Sitting 98.50 Forehead Scan 96.00 % 81.00/ min 16.00/min 60539 2 67.00 mm[Hg] - Sitting 145.00 mm[Hg] - Sitting 98.50 Tympanic 81.00/ min 16.00/min 84632 5 56.00 mm[Hg] - Sitting 142.00 mm[Hg] - Sitting 136.40 NI 100.20 Tympanic 96.00 % 92.00/ min 18.00/min
--- OUTSIDE RECORDS SUMMARY | 2024-10-03 11:26 | External Medical Summary | Continuity Of Care Document ---
Author Name Unknown Address [address] [address] Organization [facility] () Care Team Providers Care Wool Hat Forming Machine Tender Name Role Phone DO Machado Amy Primary Care Provider [phone] Allergies Allergy Reaction Start Date End Date [...] Day 3 0.1 mL 08/29 Active 2023 81313 31508 0 1 time Intrad ermal False Tubersol 5 tub. unit/0.1 mL intradermal injection solution [Tuberculin PPD] 0.1mL Intradermal 1 time For PPD 2nd Step Give 2nd Step PPD Day 1 and Read results Day 3 (schedule 7 days after 1st READ) 0.1mL 09/08 Active 2023 07094 54484 0 1 time Intrad ermal False Humalog [...] order For Diabetes 08/25 Inactiv e 2023 81325 55482 9 4 times a day Subcut aneous False Aspirin 325 mg tablet [generic] 325 By Mouth Twice daily For Anticoagulati on 325 09/25 Active 2023 76027 30840 1 Twice daily By Mouth False Ferrous sulfate 325 mg (65 mg iron) tablet [generic] 325 By Mouth Once daily For anemia 325 2023 Active 2023 17315 23116 5 Once daily By Mouth False Linezolid 600 mg tablet [generic] 600 mg By Mouth Every 12 hours For MRSA INFECTION L BKA 600 mg 08/25 Inactiv e 2023 66740 61395 1 Every 12 hours By Mouth False Cefpodoxime 200 mg tablet [generic] 400 mg By Mouth Twice daily For MRSA INFECTION L BKA 400 mg 08/25 Inactiv e 2023 32438 97785 0 Twice daily By Mouth False Coenzyme Q10 100 mg tablet [generic] 100 mg By Mouth Once daily For SUPP 100 mg 2023 Active 2023 48724 58188 0 Once daily By Mouth False Levothyroxi ne 50 mcg tablet [generic] 50mcg By Mouth Once daily For hypothyroidis m 50mcg 2023 Active 2023 89210 32326 0 Once daily By Mouth False One A Day Men Complete 240 mcg-25 mcg-300 mcg tablet 1 tab By Mouth Once daily For supplement 1 tab 2023 Active 2023 38630 77316 1 Once daily By Mouth False Cholecalcif adalberto (vitamin D3) 50 mcg (2,000 unit) tablet [generic] 1 TAB By Mouth Once daily For SUPP 1 TAB 2023 Active 2023 64482 58954 1 Once daily By Mouth False Cetirizine 10 mg tablet [generic] 1 TAB By Mouth At bedtime For Allergies 1 TAB 2023 Active 2023 53759 46746 0 At bedtime By Mouth False Timolol maleate 0.25 % eye drops [generic] 1 drop Both Eyes Twice daily For glaucoma 1 drop 2023 Active 2023 86702 25918 5 Twice daily Both Eyes False Alendronate 35 mg tablet [generic] 35mg By Mouth Every week For SIADH 35mg 2023 Active 2023 27884 27264 5 Every week By Mouth False Lantus Solostar U-100 Insulin 100 unit/mL (3 mL) subcutaneou s pen 18 units Subcutaneous Every morning For DIABETES 18 units 08/25 Inactiv e 2023 95119 27761 0 Every morning Subcut aneous False Lantus Solostar U-100 Insulin 100 unit/mL (3 mL) subcutaneou s pen 18 units Subcutaneous Every morning For DIABETES 18 units 2023 Active 2023 28475 0 Every morning Subcut aneous False Linezolid 600 mg tablet [generic] 600 mg By Mouth Every 12 hours For MRSA INFECTION L BKA 600 mg 2023 Active 2023 30647 17464 1 Every 12 hours By Mouth False [...] one-time order For Diabetes 2023 Active 2023 03468 90231 9 4 times a day Subcut aneous False Cefpodoxime 200 mg tablet [generic] 400 mg By Mouth Twice daily For MRSA INFECTION L BKA 400 mg 2023 Active 2023 11186 42008 0 Twice daily By Mouth False Brimonidine 0.1 % eye drops [generic] 1 drop Both Eyes Twice daily For glaucoma 1 drop 2023 Active 2023 15437 50283 0 Twice daily Both Eyes False Metoprolol succinate ER 50 mg tablet,exte nded release 24 hr [generic] 50 mg By Mouth Once daily HOLD FOR SBP <100, or pulse <60 For HTN 50 mg 2023 Active 2023 94022 35773 1 Once daily By Mouth False Amlodipine 2.5 mg tablet [generic] 2.5 mg By Mouth Once daily For HTN 2.5 mg 2023 Active 2023 47394 87021 5 Once daily By Mouth False Docusate sodium 100 mg capsule [generic] 100mg By Mouth Twice daily as needed For constipation HOLD FOR LOOSE STOOLS 100mg 2023 Active 2023 36948 04000 1 Twice daily as needed By Mouth False Atorvastati n 40 mg tablet [generic] 40mg By Mouth Once daily For HDL 40mg 2023 Active 2023 68757 66489 5 Once daily By Mouth False Tylenol 325 mg tablet 2 tabs By Mouth Every 4 hours as needed For Pain DO NOT EXCEED 3000 MG APAP/24 Hours 2 tabs 2023 Active 2023 85410 04075 0 Every 4 hours as needed By Mouth False Tylenol 325 mg tablet 2 tabs By Mouth Every 4 hours as needed For Fever >100 DO NOT EXCEED 3000 MG APAP/24 Hours 2 tabs 2023 Active 2023 79869 41430 0 Every 4 hours as needed By Mouth False Dulcolax (bisacodyl) 10 mg rectal suppository One Suppository per rectum PRN if Milk of Magnisia ineffective. Give on day 5 of no BM 1 sup 2023 Active 2023 69845 94538 1 Daily as needed Rectal False Fleet Enema 19 gram-7 gram/118 mL Administer per rectum PRN one time if dulcolax suppository not effective. Give on day 6 of no BM 1 2023 Active 2023 13926 07434 6 Daily as needed Rectal False Dextrose 50 % in water (D50W) intravenous solution [generic] Dextrose 50% evonne 20-50 ml (slow push) Intravenous if Glucagon not effective after 15 minutes. CALL 911 for ED Evaluation. 50% evonne 2023 Active 2023 67788 12163 9 Intrav enous False Glucagon (HCl) Emergency Kit 1 mg solution for injection Administer Glucagon 1 mg Intramuscular if 15 minutes after GLucose Gel is administered Glucose remains less than 70 1 mg 2023 Active 2023 39016 16094 2 Intram uscula r False Glucose Gel 40 % oral gel [Dextrose] PRN If resident is unable to swallow (with or without symptoms) and Glucose results less than 70 give GLucose 40% Gel 1 tube orally - Recheck Glucose 15 minutes after administratio n. 1 tube 2023 Active 2023 54420 72769 8 By Mouth False Milk of Magnesia 400 mg/5 mL oral suspension [Magnesium hydroxide] PRN 30ml By Mouth Daily as needed for constipation one time daily if no BM, on day 4 of no BM (PRN refer to instructions) For Constipation 30 mL 2023 Active 2023 84409 13732 6 Daily as needed By Mouth False VITAL SIGNS Date Time Diastolic blood pressure Systolic blood pressure Body height Body weight Temperature SpO2 Blood Sugar Pulse Respirations 35921 8 67.00 mm[Hg] - Sitting 145.00 mm[Hg] - Sitting 98.50 Forehead Scan 96.00 % 81.00/ min 16.00/min 45608 2 67.00 mm[Hg] - Sitting 145.00 mm[Hg] - Sitting 98.50 Tympanic 81.00/ min 16.00/min 81368 5 56.00 mm[Hg] - Sitting 142.00 mm[Hg] - Sitting 136.40 NI 100.20 Tympanic 96.00 % 92.00/ min 18.00/min
--- OUTSIDE RECORDS SUMMARY | 2024-10-03 11:26 | External Medical Summary | Continuity Of Care Document ---
Author Name Unknown Address [address] [address] Organization [facility] () Care Team Providers Care Psychiatry Resident Name Role Phone DO Machado Amy Primary Care Provider [phone] Allergies Allergy Reaction Start Date End Date [...] Day 3 0.1 mL 08/29 Active 2023 38939 65750 0 1 time Intrad ermal False Tubersol 5 tub. unit/0.1 mL intradermal injection solution [Tuberculin PPD] 0.1mL Intradermal 1 time For PPD 2nd Step Give 2nd Step PPD Day 1 and Read results Day 3 (schedule 7 days after 1st READ) 0.1mL 09/08 Active 2023 67165 07473 0 1 time Intrad ermal False Humalog [...] order For Diabetes 08/25 Inactiv e 2023 63089 73010 9 4 times a day Subcut aneous False Aspirin 325 mg tablet [generic] 325 By Mouth Twice daily For Anticoagulati on 325 09/25 Active 2023 37210 84413 1 Twice daily By Mouth False Ferrous sulfate 325 mg (65 mg iron) tablet [generic] 325 By Mouth Once daily For anemia 325 2023 Active 2023 07040 82759 5 Once daily By Mouth False Linezolid 600 mg tablet [generic] 600 mg By Mouth Every 12 hours For MRSA INFECTION L BKA 600 mg 08/25 Inactiv e 2023 87356 05598 1 Every 12 hours By Mouth False Cefpodoxime 200 mg tablet [generic] 400 mg By Mouth Twice daily For MRSA INFECTION L BKA 400 mg 08/25 Inactiv e 2023 77864 26653 0 Twice daily By Mouth False Coenzyme Q10 100 mg tablet [generic] 100 mg By Mouth Once daily For SUPP 100 mg 2023 Active 2023 25723 73810 0 Once daily By Mouth False Levothyroxi ne 50 mcg tablet [generic] 50mcg By Mouth Once daily For hypothyroidis m 50mcg 2023 Active 2023 53440 95486 0 Once daily By Mouth False One A Day Men Complete 240 mcg-25 mcg-300 mcg tablet 1 tab By Mouth Once daily For supplement 1 tab 2023 Active 2023 23102 24070 1 Once daily By Mouth False Cholecalcif adalberto (vitamin D3) 50 mcg (2,000 unit) tablet [generic] 1 TAB By Mouth Once daily For SUPP 1 TAB 2023 Active 2023 34772 21354 1 Once daily By Mouth False Cetirizine 10 mg tablet [generic] 1 TAB By Mouth At bedtime For Allergies 1 TAB 2023 Active 2023 43570 88214 0 At bedtime By Mouth False Timolol maleate 0.25 % eye drops [generic] 1 drop Both Eyes Twice daily For glaucoma 1 drop 2023 Active 2023 56379 55286 5 Twice daily Both Eyes False Alendronate 35 mg tablet [generic] 35mg By Mouth Every week For SIADH 35mg 2023 Active 2023 74307 76299 5 Every week By Mouth False Lantus Solostar U-100 Insulin 100 unit/mL (3 mL) subcutaneou s pen 18 units Subcutaneous Every morning For DIABETES 18 units 08/25 Inactiv e 2023 96933 98167 0 Every morning Subcut aneous False Lantus Solostar U-100 Insulin 100 unit/mL (3 mL) subcutaneou s pen 18 units Subcutaneous Every morning For DIABETES 18 units 2023 Active 2023 11476 0 Every morning Subcut aneous False Linezolid 600 mg tablet [generic] 600 mg By Mouth Every 12 hours For MRSA INFECTION L BKA 600 mg 2023 Active 2023 97395 10988 1 Every 12 hours By Mouth False [...] one-time order For Diabetes 2023 Active 2023 32698 84444 9 4 times a day Subcut aneous False Cefpodoxime 200 mg tablet [generic] 400 mg By Mouth Twice daily For MRSA INFECTION L BKA 400 mg 2023 Active 2023 80415 62171 0 Twice daily By Mouth False Brimonidine 0.1 % eye drops [generic] 1 drop Both Eyes Twice daily For glaucoma 1 drop 2023 Active 2023 39705 34294 0 Twice daily Both Eyes False Metoprolol succinate ER 50 mg tablet,exte nded release 24 hr [generic] 50 mg By Mouth Once daily HOLD FOR SBP <100, or pulse <60 For HTN 50 mg 2023 Active 2023 29343 51706 1 Once daily By Mouth False Amlodipine 2.5 mg tablet [generic] 2.5 mg By Mouth Once daily For HTN 2.5 mg 2023 Active 2023 24856 33439 5 Once daily By Mouth False Docusate sodium 100 mg capsule [generic] 100mg By Mouth Twice daily as needed For constipation HOLD FOR LOOSE STOOLS 100mg 2023 Active 2023 48362 18910 1 Twice daily as needed By Mouth False Atorvastati n 40 mg tablet [generic] 40mg By Mouth Once daily For HDL 40mg 2023 Active 2023 92038 70011 5 Once daily By Mouth False Tylenol 325 mg tablet 2 tabs By Mouth Every 4 hours as needed For Pain DO NOT EXCEED 3000 MG APAP/24 Hours 2 tabs 2023 Active 2023 18716 11355 0 Every 4 hours as needed By Mouth False Tylenol 325 mg tablet 2 tabs By Mouth Every 4 hours as needed For Fever >100 DO NOT EXCEED 3000 MG APAP/24 Hours 2 tabs 2023 Active 2023 89437 21031 0 Every 4 hours as needed By Mouth False Dulcolax (bisacodyl) 10 mg rectal suppository One Suppository per rectum PRN if Milk of Magnisia ineffective. Give on day 5 of no BM 1 sup 2023 Active 2023 32861 22929 1 Daily as needed Rectal False Fleet Enema 19 gram-7 gram/118 mL Administer per rectum PRN one time if dulcolax suppository not effective. Give on day 6 of no BM 1 2023 Active 2023 53130 08843 6 Daily as needed Rectal False Dextrose 50 % in water (D50W) intravenous solution [generic] Dextrose 50% evonne 20-50 ml (slow push) Intravenous if Glucagon not effective after 15 minutes. CALL 911 for ED Evaluation. 50% evonne 2023 Active 2023 12962 24674 9 Intrav enous False Glucagon (HCl) Emergency Kit 1 mg solution for injection Administer Glucagon 1 mg Intramuscular if 15 minutes after GLucose Gel is administered Glucose remains less than 70 1 mg 2023 Active 2023 97777 42252 2 Intram uscula r False Glucose Gel 40 % oral gel [Dextrose] PRN If resident is unable to swallow (with or without symptoms) and Glucose results less than 70 give GLucose 40% Gel 1 tube orally - Recheck Glucose 15 minutes after administratio n. 1 tube 2023 Active 2023 00835 74536 8 By Mouth False Milk of Magnesia 400 mg/5 mL oral suspension [Magnesium hydroxide] PRN 30ml By Mouth Daily as needed for constipation one time daily if no BM, on day 4 of no BM (PRN refer to instructions) For Constipation 30 mL 2023 Active 2023 72598 44403 6 Daily as needed By Mouth False VITAL SIGNS Date Time Diastolic blood pressure Systolic blood pressure Body height Body weight Temperature SpO2 Blood Sugar Pulse Respirations 28271 8 67.00 mm[Hg] - Sitting 145.00 mm[Hg] - Sitting 98.50 Forehead Scan 96.00 % 81.00/ min 16.00/min 44331 2 67.00 mm[Hg] - Sitting 145.00 mm[Hg] - Sitting 98.50 Tympanic 81.00/ min 16.00/min 66111 5 56.00 mm[Hg] - Sitting 142.00 mm[Hg] - Sitting 136.40 NI 100.20 Tympanic 96.00 % 92.00/ min 18.00/min
--- OUTSIDE RECORDS SUMMARY | 2024-10-03 11:26 | External Medical Summary | Continuity Of Care Document ---
Author Name Unknown Address [address] [address] Organization [facility] () Care Team Providers Care Dye Range Operator Cloth Name Role Phone DO Machado Amy Primary Care Provider [phone] Allergies Allergy Reaction Start Date End Date [...] Day 3 0.1 mL 08/29 Active 2023 80406 59716 0 1 time Intrad ermal False Tubersol 5 tub. unit/0.1 mL intradermal injection solution [Tuberculin PPD] 0.1mL Intradermal 1 time For PPD 2nd Step Give 2nd Step PPD Day 1 and Read results Day 3 (schedule 7 days after 1st READ) 0.1mL 09/08 Active 2023 73525 24046 0 1 time Intrad ermal False Humalog [...] order For Diabetes 08/25 Inactiv e 2023 42837 61492 9 4 times a day Subcut aneous False Aspirin 325 mg tablet [generic] 325 By Mouth Twice daily For Anticoagulati on 325 09/25 Active 2023 16249 59684 1 Twice daily By Mouth False Ferrous sulfate 325 mg (65 mg iron) tablet [generic] 325 By Mouth Once daily For anemia 325 2023 Active 2023 27530 57260 5 Once daily By Mouth False Linezolid 600 mg tablet [generic] 600 mg By Mouth Every 12 hours For MRSA INFECTION L BKA 600 mg 08/25 Inactiv e 2023 08850 81235 1 Every 12 hours By Mouth False Cefpodoxime 200 mg tablet [generic] 400 mg By Mouth Twice daily For MRSA INFECTION L BKA 400 mg 08/25 Inactiv e 2023 40766 10024 0 Twice daily By Mouth False Coenzyme Q10 100 mg tablet [generic] 100 mg By Mouth Once daily For SUPP 100 mg 2023 Active 2023 03635 70537 0 Once daily By Mouth False Levothyroxi ne 50 mcg tablet [generic] 50mcg By Mouth Once daily For hypothyroidis m 50mcg 2023 Active 2023 06401 75285 0 Once daily By Mouth False One A Day Men Complete 240 mcg-25 mcg-300 mcg tablet 1 tab By Mouth Once daily For supplement 1 tab 2023 Active 2023 88569 60451 1 Once daily By Mouth False Cholecalcif adalberto (vitamin D3) 50 mcg (2,000 unit) tablet [generic] 1 TAB By Mouth Once daily For SUPP 1 TAB 2023 Active 2023 25379 13234 1 Once daily By Mouth False Cetirizine 10 mg tablet [generic] 1 TAB By Mouth At bedtime For Allergies 1 TAB 2023 Active 2023 03282 74009 0 At bedtime By Mouth False Timolol maleate 0.25 % eye drops [generic] 1 drop Both Eyes Twice daily For glaucoma 1 drop 2023 Active 2023 27114 04262 5 Twice daily Both Eyes False Alendronate 35 mg tablet [generic] 35mg By Mouth Every week For SIADH 35mg 2023 Active 2023 34261 58446 5 Every week By Mouth False Lantus Solostar U-100 Insulin 100 unit/mL (3 mL) subcutaneou s pen 18 units Subcutaneous Every morning For DIABETES 18 units 08/25 Inactiv e 2023 42719 37227 0 Every morning Subcut aneous False Lantus Solostar U-100 Insulin 100 unit/mL (3 mL) subcutaneou s pen 18 units Subcutaneous Every morning For DIABETES 18 units 2023 Active 2023 44914 0 Every morning Subcut aneous False Linezolid 600 mg tablet [generic] 600 mg By Mouth Every 12 hours For MRSA INFECTION L BKA 600 mg 2023 Active 2023 72143 04435 1 Every 12 hours By Mouth False [...] one-time order For Diabetes 2023 Active 2023 06263 35168 9 4 times a day Subcut aneous False Cefpodoxime 200 mg tablet [generic] 400 mg By Mouth Twice daily For MRSA INFECTION L BKA 400 mg 2023 Active 2023 19476 32772 0 Twice daily By Mouth False Brimonidine 0.1 % eye drops [generic] 1 drop Both Eyes Twice daily For glaucoma 1 drop 2023 Active 2023 49974 24734 0 Twice daily Both Eyes False Metoprolol succinate ER 50 mg tablet,exte nded release 24 hr [generic] 50 mg By Mouth Once daily HOLD FOR SBP <100, or pulse <60 For HTN 50 mg 2023 Active 2023 63991 43669 1 Once daily By Mouth False Amlodipine 2.5 mg tablet [generic] 2.5 mg By Mouth Once daily For HTN 2.5 mg 2023 Active 2023 54622 07018 5 Once daily By Mouth False Docusate sodium 100 mg capsule [generic] 100mg By Mouth Twice daily as needed For constipation HOLD FOR LOOSE STOOLS 100mg 2023 Active 2023 21990 69756 1 Twice daily as needed By Mouth False Atorvastati n 40 mg tablet [generic] 40mg By Mouth Once daily For HDL 40mg 08/26 Inactiv e 2023 13034 23228 5 Once daily By Mouth False Tylenol 325 mg tablet 2 tabs By Mouth Every 4 hours as needed For Pain DO NOT EXCEED 3000 MG APAP/24 Hours 2 tabs 2023 Active 2023 87697 58613 0 Every 4 hours as needed By Mouth False Tylenol 325 mg tablet 2 tabs By Mouth Every 4 hours as needed For Fever >100 DO NOT EXCEED 3000 MG APAP/24 Hours 2 tabs 2023 Active 2023 25119 76065 0 Every 4 hours as needed By Mouth False Dulcolax (bisacodyl) 10 mg rectal suppository One Suppository per rectum PRN if Milk of Magnisia ineffective. Give on day 5 of no BM 1 sup 2023 Active 2023 63484 20655 1 Daily as needed Rectal False Fleet Enema 19 gram-7 gram/118 mL Administer per rectum PRN one time if dulcolax suppository not effective. Give on day 6 of no BM 1 2023 Active 2023 13875 23889 6 Daily as needed Rectal False Dextrose 50 % in water (D50W) intravenous solution [generic] Dextrose 50% evonne 20-50 ml (slow push) Intravenous if Glucagon not effective after 15 minutes. CALL 911 for ED Evaluation. 50% evonne 2023 Active 2023 42595 24025 9 Intrav enous False Glucagon (HCl) Emergency Kit 1 mg solution for injection Administer Glucagon 1 mg Intramuscular if 15 minutes after GLucose Gel is administered Glucose remains less than 70 1 mg 2023 Active 2023 86053 80821 2 Intram uscula r False Glucose Gel 40 % oral gel [Dextrose] PRN If resident is unable to swallow (with or without symptoms) and Glucose results less than 70 give GLucose 40% Gel 1 tube orally - Recheck Glucose 15 minutes after administratio n. 1 tube 2023 Active 2023 22114 69922 8 By Mouth False Milk of Magnesia 400 mg/5 mL oral suspension [Magnesium hydroxide] PRN 30ml By Mouth Daily as needed for constipation one time daily if no BM, on day 4 of no BM (PRN refer to instructions) For Constipation 30 mL 2023 Active 2023 96741 24868 6 Daily as needed By Mouth False Atorvastati n 40 mg tablet [generic] 08/26 Inactiv e 2023 17271 80551 5 Atorvastati n 40 mg tablet [generic] 40mg By Mouth Once daily For HDL 40mg 2023 Active 2023 64652 63273 5 Once daily By Mouth False Insulin aspart (U-100) 100 unit/mL (3 mL) subcutaneou s pen [generic] 15 units Subcutaneous 1 time For dm 15 units 08/27 Active 2023 28098 84753 5 1 time Subcut aneous False MediHoney HCS 4 1/2in X 4 1/2in bandage Cleanse area with NSS, apply one medihoney hydrocolloid dressing, non adherent dressing, kerlix secure with paper tape daily. For wound stage III 1 10/06/ 2024 00/00 /0000 Active 2023 40171 42512 1 Once daily Topica l False VITAL SIGNS Date Time Diastolic blood pressure Systolic blood pressure Body height Body weight Temperature SpO2 Blood Sugar Pulse Respirations 43206 8 67.00 mm[Hg] - Sitting 145.00 mm[Hg] - Sitting 98.50 Forehead Scan 96.00 % 81.00/ min 16.00/min 004 18309 2 67.00 mm[Hg] - Sitting 145.00 mm[Hg] - Sitting 98.50 Tympanic 81.00/ min 16.00/min 44627 004 62221 5 56.00 mm[Hg] - Sitting 142.00 mm[Hg] - Sitting 136.40 NI 100.20 Tympanic 96.00 % 92.00/ min 18.00/min 99349 004 61114 6 89086 004 01763 4 143.00 mg/dL 72954 004 01922 0 97.80 Tympanic 16434 005 44058 7 60.00 mm[Hg] - Sitting 140.00 mm[Hg] - Sitting 98.00 Tympanic 84.00/ min 18.00/min 34003 005 33960 0 63.00 mm[Hg] - Sitting 141.00 mm[Hg] - Sitting 98.20 Tympanic 92.00 % 63.00/ min 16.00/min 53530 005 89981 8 69.00 mm[Hg] - Sitting 106.00 mm[Hg] - Sitting 97.20 Tympanic 92541 005 82569 7 69.00/ min 16.00/min 38551 005 91182 1 367.00 mg/dL 20031 005 51044 2 97.20 Tympanic 41392 005 44774 4 97.20 Tympanic 33198 005 33162 0 69.00 mm[Hg] - Sitting 106.00 mm[Hg] - Sitting 69.00/ min 67118 005 48374 3 452.00 mg/dL 27041 005 10093 3 452.00 mg/dL
--- OUTSIDE RECORDS SUMMARY | 2024-10-03 11:26 | External Medical Summary | Continuity Of Care Document ---
Author Name Unknown Address [address] [address] Organization [facility] () Care Team Providers Care Cabinet Professional Name Role Phone DO Machado Amy Primary Care Provider [phone] Allergies Allergy Reaction Start Date End Date [...] order For Diabetes 08/25 Inactiv e 2023 65706 49201 9 4 times a day Subcut aneous False Aspirin 325 mg tablet [generic] 325 By Mouth Twice daily For Anticoagulati on 325 09/25 Active 2023 08754 37129 1 Twice daily By Mouth False Ferrous sulfate 325 mg (65 mg iron) tablet [generic] 325 By Mouth Once daily For anemia 325 2023 0000 0000 Active 2023 35399 02418 5 Once daily By Mouth False Linezolid 600 mg tablet [generic] 600 mg By Mouth Every 12 hours For MRSA INFECTION L BKA 600 mg 08/25 Inactiv e 2023 52531 64078 1 Every 12 hours By Mouth False Cefpodoxime 200 mg tablet [generic] 400 mg By Mouth Twice daily For MRSA INFECTION L BKA 400 mg 08/31 Active 2023 14257 29203 0 Twice daily By Mouth False Coenzyme Q10 100 mg tablet [generic] 100 mg By Mouth Once daily For SUPP 100 mg 2023 Active 2023 44540 59844 0 Once daily By Mouth False Levothyroxi ne 50 mcg tablet [generic] 50mcg By Mouth Once daily For hypothyroidis m 50mcg 2023 Active 2023 94246 12600 0 Once daily By Mouth False One A Day Men Complete 240 mcg-25 mcg-300 mcg tablet 1 tab By Mouth Once daily For supplement 1 tab 2023 Active 2023 66579 63087 1 Once daily By Mouth False Cholecalcif adalberto (vitamin D3) 50 mcg (2,000 unit) tablet [generic] 1 TAB By Mouth Once daily For SUPP 1 TAB 2023 Active 2023 03752 98955 1 Once daily By Mouth False Cetirizine 10 mg tablet [generic] 1 TAB By Mouth At bedtime For Allergies 1 TAB 2023 Active 2023 38009 97754 0 At bedtime By Mouth False Timolol maleate 0.25 % eye drops [generic] 1 drop Both Eyes Twice daily For glaucoma 1 drop 2023 Active 2023 33603 01597 5 Twice daily Both Eyes False Alendronate 35 mg tablet [generic] 35mg By Mouth Every week For SIADH 35mg 2023 Active 2023 53058 50150 5 Every week By Mouth False Lantus Solostar U-100 Insulin 100 unit/mL (3 mL) subcutaneou s pen 18 units Subcutaneous Every morning For DIABETES 18 units 08/25 Inactiv e 2023 37249 40548 0 Every morning Subcut aneous False Lantus Solostar U-100 Insulin 100 unit/mL (3 mL) subcutaneou s pen 18 units Subcutaneous Every morning For DIABETES 18 units 2023 Active 2023 08966 00395 0 Every morning Subcut aneous False Linezolid 600 mg tablet [generic] 600 mg By Mouth Every 12 hours For MRSA INFECTION L BKA 600 mg 2023 Active 2023 27378 01931 1 Every 12 hours By Mouth False [...] one-time order For Diabetes 2023 Active 2023 64643 36588 9 4 times a day Subcut aneous False VITAL SIGNS Date Time Diastolic blood pressure Systolic blood pressure Body height Body weight Temperature SpO2 Blood Sugar Pulse Respirations 66117 8 67.00 mm[Hg] - Sitting 145.00 mm[Hg] - Sitting 98.50 Forehead Scan 96.00 % 81.00/ min 16.00/min 85288 2 67.00 mm[Hg] - Sitting 145.00 mm[Hg] - Sitting 98.50 Tympanic 81.00/ min 16.00/min 60892 5 56.00 mm[Hg] - Sitting 142.00 mm[Hg] - Sitting 136.40 NI 100.20 Tympanic 96.00 % 92.00/ min 18.00/min
--- OUTSIDE RECORDS SUMMARY | 2024-10-03 11:26 | External Medical Summary | Continuity Of Care Document ---
Author Name Unknown Address [address] [address] Organization [facility] () Care Team Providers Care Cattle Examiner Name Role Phone DO Machado Amy Primary Care Provider [phone] Allergies Allergy Reaction Start Date End Date [...] order For Diabetes 08/25 Inactiv e 2023 92879 15890 9 4 times a day Subcut aneous False Aspirin 325 mg tablet [generic] 325 By Mouth Twice daily For Anticoagulati on 325 09/25 Active 2023 14870 43735 1 Twice daily By Mouth False Ferrous sulfate 325 mg (65 mg iron) tablet [generic] 325 By Mouth Once daily For anemia 325 2023 0000 0000 Active 2023 56692 44259 5 Once daily By Mouth False Linezolid 600 mg tablet [generic] 600 mg By Mouth Every 12 hours For MRSA INFECTION L BKA 600 mg 08/25 Inactiv e 2023 23455 50889 1 Every 12 hours By Mouth False Cefpodoxime 200 mg tablet [generic] 400 mg By Mouth Twice daily For MRSA INFECTION L BKA 400 mg 08/25 Inactiv e 2023 58846 20019 0 Twice daily By Mouth False Coenzyme Q10 100 mg tablet [generic] 100 mg By Mouth Once daily For SUPP 100 mg 2023 Active 2023 25038 88291 0 Once daily By Mouth False Levothyroxi ne 50 mcg tablet [generic] 50mcg By Mouth Once daily For hypothyroidis m 50mcg 2023 Active 2023 30180 65918 0 Once daily By Mouth False One A Day Men Complete 240 mcg-25 mcg-300 mcg tablet 1 tab By Mouth Once daily For supplement 1 tab 2023 Active 2023 19748 98903 1 Once daily By Mouth False Cholecalcif adalberto (vitamin D3) 50 mcg (2,000 unit) tablet [generic] 1 TAB By Mouth Once daily For SUPP 1 TAB 2023 Active 2023 60665 19537 1 Once daily By Mouth False Cetirizine 10 mg tablet [generic] 1 TAB By Mouth At bedtime For Allergies 1 TAB 2023 Active 2023 15769 10952 0 At bedtime By Mouth False Timolol maleate 0.25 % eye drops [generic] 1 drop Both Eyes Twice daily For glaucoma 1 drop 2023 Active 2023 15102 49792 5 Twice daily Both Eyes False Alendronate 35 mg tablet [generic] 35mg By Mouth Every week For SIADH 35mg 2023 Active 2023 37376 32178 5 Every week By Mouth False Lantus Solostar U-100 Insulin 100 unit/mL (3 mL) subcutaneou s pen 18 units Subcutaneous Every morning For DIABETES 18 units 08/25 Inactiv e 2023 74688 86542 0 Every morning Subcut aneous False Lantus Solostar U-100 Insulin 100 unit/mL (3 mL) subcutaneou s pen 18 units Subcutaneous Every morning For DIABETES 18 units 2023 Active 2023 31952 21149 0 Every morning Subcut aneous False Linezolid 600 mg tablet [generic] 600 mg By Mouth Every 12 hours For MRSA INFECTION L BKA 600 mg 2023 Active 2023 93752 90502 1 Every 12 hours By Mouth False [...] one-time order For Diabetes 2023 Active 2023 53999 43419 9 4 times a day Subcut aneous False Cefpodoxime 200 mg tablet [generic] 400 mg By Mouth Twice daily For MRSA INFECTION L BKA 400 mg 2023 Active 2023 16867 49002 0 Twice daily By Mouth False VITAL SIGNS Date Time Diastolic blood pressure Systolic blood pressure Body height Body weight Temperature SpO2 Blood Sugar Pulse Respirations 25158 8 67.00 mm[Hg] - Sitting 145.00 mm[Hg] - Sitting 98.50 Forehead Scan 96.00 % 81.00/ min 16.00/min 35676 2 67.00 mm[Hg] - Sitting 145.00 mm[Hg] - Sitting 98.50 Tympanic 81.00/ min 16.00/min 78863 5 56.00 mm[Hg] - Sitting 142.00 mm[Hg] - Sitting 136.40 NI 100.20 Tympanic 96.00 % 92.00/ min 18.00/min
--- OUTSIDE RECORDS SUMMARY | 2024-10-03 11:26 | External Medical Summary | Continuity Of Care Document ---
Author Name Unknown Address [address] [address] Organization [facility] () Care Team Providers Care Development Executive Name Role Phone DO Machado Amy Primary Care Provider [phone] Allergies Allergy Reaction Start Date End Date Status TRAMADOL Weakness Active AMOXICILLIN Nausea, Weakness Active AUGMENTIN Active Medications Medication Instructions Dosage Start Date End Date Status Order Date Drug Code Frequency Route of Admin Diagnosis Code Substitutions Allowed Tubersol 5 tub. unit/0.1 mL intradermal injection solution [Tuberculin PPD] 0.1 mL Intradermal 1 time For PPD Step 1 GIVE on Day 1 and read results Day 3 0.1 mL 08/29 Active 2023 41232 10101 0 1 time Intrad ermal False Tubersol 5 tub. unit/0.1 mL intradermal injection solution [Tuberculin PPD] 0.1mL Intradermal 1 time For PPD 2nd Step Give 2nd Step PPD Day 1 and Read results Day 3 (schedule 7 days after 1st READ) 0.1mL 09/08 Active 2023 35573 74181 0 1 time Intrad ermal False Humalog [...] order For Diabetes 08/25 Inactiv e 2023 73035 90540 9 4 times a day Subcut aneous False Aspirin 325 mg tablet [generic] 325 By Mouth Twice daily For Anticoagulati on 325 09/25 Active 2023 22759 33090 1 Twice daily By Mouth False Ferrous sulfate 325 mg (65 mg iron) tablet [generic] 325 By Mouth Once daily For anemia 325 2023 Active 2023 49508 11535 5 Once daily By Mouth False Linezolid 600 mg tablet [generic] 600 mg By Mouth Every 12 hours For MRSA INFECTION L BKA 600 mg 08/25 Inactiv e 2023 33984 77848 1 Every 12 hours By Mouth False Cefpodoxime 200 mg tablet [generic] 400 mg By Mouth Twice daily For MRSA INFECTION L BKA 400 mg 08/25 Inactiv e 2023 82558 09067 0 Twice daily By Mouth False Coenzyme Q10 100 mg tablet [generic] 100 mg By Mouth Once daily For SUPP 100 mg 2023 Active 2023 43286 92813 0 Once daily By Mouth False Levothyroxi ne 50 mcg tablet [generic] 50mcg By Mouth Once daily For hypothyroidis m 50mcg 2023 Active 2023 45901 10573 0 Once daily By Mouth False One A Day Men Complete 240 mcg-25 mcg-300 mcg tablet 1 tab By Mouth Once daily For supplement 1 tab 2023 Active 2023 13173 27475 1 Once daily By Mouth False Cholecalcif adalberto (vitamin D3) 50 mcg (2,000 unit) tablet [generic] 1 TAB By Mouth Once daily For SUPP 1 TAB 2023 Active 2023 93057 35947 1 Once daily By Mouth False Cetirizine 10 mg tablet [generic] 1 TAB By Mouth At bedtime For Allergies 1 TAB 2023 Active 2023 25469 28322 0 At bedtime By Mouth False Timolol maleate 0.25 % eye drops [generic] 1 drop Both Eyes Twice daily For glaucoma 1 drop 2023 Active 2023 57346 32920 5 Twice daily Both Eyes False Alendronate 35 mg tablet [generic] 35mg By Mouth Every week For SIADH 35mg 2023 Active 2023 03564 67009 5 Every week By Mouth False Lantus Solostar U-100 Insulin 100 unit/mL (3 mL) subcutaneou s pen 18 units Subcutaneous Every morning For DIABETES 18 units 08/25 Inactiv e 2023 62917 39077 0 Every morning Subcut aneous False Lantus Solostar U-100 Insulin 100 unit/mL (3 mL) subcutaneou s pen 18 units Subcutaneous Every morning For DIABETES 18 units 2023 Active 2023 18955 31727 0 Every morning Subcut aneous False Linezolid 600 mg tablet [generic] 600 mg By Mouth Every 12 hours For MRSA INFECTION L BKA 600 mg 2023 Active 2023 81540 59513 1 Every 12 hours By Mouth False [...] one-time order For Diabetes 2023 Active 2023 89481 77796 9 4 times a day Subcut aneous False Cefpodoxime 200 mg tablet [generic] 400 mg By Mouth Twice daily For MRSA INFECTION L BKA 400 mg 2023 Active 2023 73180 05554 0 Twice daily By Mouth False Brimonidine 0.1 % eye drops [generic] 1 drop Both Eyes Twice daily For glaucoma 1 drop 2023 Active 2023 09511 44164 0 Twice daily Both Eyes False Metoprolol succinate ER 50 mg tablet,exte nded release 24 hr [generic] 50 mg By Mouth Once daily HOLD FOR SBP <100, or pulse <60 For HTN 50 mg 2023 Active 2023 28299 02797 1 Once daily By Mouth False Amlodipine 2.5 mg tablet [generic] 2.5 mg By Mouth Once daily For HTN 2.5 mg 2023 Active 2023 15864 46750 5 Once daily By Mouth False Docusate sodium 100 mg capsule [generic] 100mg By Mouth Twice daily as needed For constipation HOLD FOR LOOSE STOOLS 100mg 2023 Active 2023 64237 43675 1 Twice daily as needed By Mouth False Atorvastati n 40 mg tablet [generic] 40mg By Mouth Once daily For HDL 40mg 2023 Active 2023 77037 47014 5 Once daily By Mouth False Tylenol 325 mg tablet 2 tabs By Mouth Every 4 hours as needed For Pain DO NOT EXCEED 3000 MG APAP/24 Hours 2 tabs 2023 Active 2023 68891 12094 0 Every 4 hours as needed By Mouth False Tylenol 325 mg tablet 2 tabs By Mouth Every 4 hours as needed For Fever >100 DO NOT EXCEED 3000 MG APAP/24 Hours 2 tabs 2023 Active 2023 99286 66558 0 Every 4 hours as needed By Mouth False Dulcolax (bisacodyl) 10 mg rectal suppository One Suppository per rectum PRN if Milk of Magnisia ineffective. Give on day 5 of no BM 1 sup 2023 Active 2023 09701 83786 1 Daily as needed Rectal False Fleet Enema 19 gram-7 gram/118 mL Administer per rectum PRN one time if dulcolax suppository not effective. Give on day 6 of no BM 1 2023 Active 2023 06740 43142 6 Daily as needed Rectal False Dextrose 50 % in water (D50W) intravenous solution [generic] Dextrose 50% evonne 20-50 ml (slow push) Intravenous if Glucagon not effective after 15 minutes. CALL 911 for ED Evaluation. 50% evonne 2023 Active 2023 44417 47162 9 Intrav enous False Glucagon (HCl) Emergency Kit 1 mg solution for injection Administer Glucagon 1 mg Intramuscular if 15 minutes after GLucose Gel is administered Glucose remains less than 70 1 mg 2023 Active 2023 74818 08602 2 Intram uscula r False Glucose Gel 40 % oral gel [Dextrose] PRN If resident is unable to swallow (with or without symptoms) and Glucose results less than 70 give GLucose 40% Gel 1 tube orally - Recheck Glucose 15 minutes after administratio n. 1 tube 2023 Active 2023 97102 42923 8 By Mouth False Milk of Magnesia 400 mg/5 mL oral suspension [Magnesium hydroxide] PRN 30ml By Mouth Daily as needed for constipation one time daily if no BM, on day 4 of no BM (PRN refer to instructions) For Constipation 30 mL 2023 Active 2023 87875 63829 6 Daily as needed By Mouth False VITAL SIGNS Date Time Diastolic blood pressure Systolic blood pressure Body height Body weight Temperature SpO2 Blood Sugar Pulse Respirations 31194 8 67.00 mm[Hg] - Sitting 145.00 mm[Hg] - Sitting 98.50 Forehead Scan 96.00 % 81.00/ min 16.00/min 46068 2 67.00 mm[Hg] - Sitting 145.00 mm[Hg] - Sitting 98.50 Tympanic 81.00/ min 16.00/min 89259 5 56.00 mm[Hg] - Sitting 142.00 mm[Hg] - Sitting 136.40 NI 100.20 Tympanic 96.00 % 92.00/ min 18.00/min 6 4 143.00 mg/dL 0 97.80 Tympanic
--- OUTSIDE RECORDS SUMMARY | 2024-10-03 11:26 | External Medical Summary | Continuity Of Care Document ---
Author Name Unknown Address [address] [address] Organization [facility] () Care Team Providers Care International Nurse Name Role Phone DO Machado Amy Primary Care Provider [phone] Allergies Allergy Reaction Start Date End Date [...] one-time order For Diabetes 2023 Active 2023 96009 21038 9 4 times a day Subcut aneous False Aspirin 325 mg tablet [generic] 325 By Mouth Twice daily For Anticoagulati on 325 09/25 Active 2023 25785 57084 1 Twice daily By Mouth False Ferrous sulfate 325 mg (65 mg iron) tablet [generic] 325 By Mouth Once daily For anemia 325 2023 Active 2023 05837 31364 5 Once daily By Mouth False Linezolid 600 mg tablet [generic] 600 mg By Mouth Every 12 hours For MRSA INFECTION L BKA 600 mg 09/06 Active 2023 28916 76905 1 Every 12 hours By Mouth False Cefpodoxime 200 mg tablet [generic] 400 mg By Mouth Twice daily For MRSA INFECTION L BKA 400 mg 08/31 Active 2023 86517 75652 0 Twice daily By Mouth False Coenzyme Q10 100 mg tablet [generic] 100 mg By Mouth Once daily For SUPP 100 mg 2023 Active 2023 83137 78535 0 Once daily By Mouth False Levothyroxi ne 50 mcg tablet [generic] 50mcg By Mouth Once daily For hypothyroidis m 50mcg 2023 Active 2023 15289 31125 0 Once daily By Mouth False One A Day Men Complete 240 mcg-25 mcg-300 mcg tablet 1 tab By Mouth Once daily For supplement 1 tab 2023 Active 2023 54162 20406 1 Once daily By Mouth False Cholecalcif adalberto (vitamin D3) 50 mcg (2,000 unit) tablet [generic] 1 TAB By Mouth Once daily For SUPP 1 TAB 2023 Active 2023 14359 04334 1 Once daily By Mouth False Cetirizine 10 mg tablet [generic] 1 TAB By Mouth At bedtime For Allergies 1 TAB 2023 Active 2023 92695 67872 0 At bedtime By Mouth False Timolol maleate 0.25 % eye drops [generic] 1 drop Both Eyes Twice daily For glaucoma 1 drop 2023 Active 2023 51950 03803 5 Twice daily Both Eyes False Alendronate 35 mg tablet [generic] 35mg By Mouth Every week For SIADH 35mg 2023 Active 2023 08137 04221 5 Every week By Mouth False Lantus Solostar U-100 Insulin 100 unit/mL (3 mL) subcutaneou s pen 18 units Subcutaneous Every morning For DIABETES 18 units 2023 Active 2023 00394 94794 0 Every morning Subcut aneous False VITAL SIGNS Date Time Diastolic blood pressure Systolic blood pressure Body height Body weight Temperature SpO2 Blood Sugar Pulse Respirations 49018 004 57732 8 67.00 mm[Hg] - Sitting 145.00 mm[Hg] - Sitting 98.50 Forehead Scan 96.00 % 81.00/ min 16.00/min 08449 2 67.00 mm[Hg] - Sitting 145.00 mm[Hg] - Sitting 98.50 Tympanic 81.00/ min 16.00/min 85015 5 56.00 mm[Hg] - Sitting 142.00 mm[Hg] - Sitting 136.40 NI 100.20 Tympanic 96.00 % 92.00/ min 18.00/min
--- OUTSIDE RECORDS SUMMARY | 2024-10-03 11:26 | External Medical Summary | Continuity Of Care Document ---
Author Name Unknown Address [address] [address] Organization [facility] () Care Team Providers Care Poultry Farm Worker Name Role Phone DO Machado Amy Primary Care Provider [phone] Allergies Allergy Reaction Start Date End Date [...] order For Diabetes 08/25 Inactiv e 2023 55166 04354 9 4 times a day Subcut aneous False Aspirin 325 mg tablet [generic] 325 By Mouth Twice daily For Anticoagulati on 325 09/25 Active 2023 06351 13216 1 Twice daily By Mouth False Ferrous sulfate 325 mg (65 mg iron) tablet [generic] 325 By Mouth Once daily For anemia 325 2023 0000 0000 Active 2023 52774 85954 5 Once daily By Mouth False Linezolid 600 mg tablet [generic] 600 mg By Mouth Every 12 hours For MRSA INFECTION L BKA 600 mg 08/25 Inactiv e 2023 25658 32679 1 Every 12 hours By Mouth False Cefpodoxime 200 mg tablet [generic] 400 mg By Mouth Twice daily For MRSA INFECTION L BKA 400 mg 08/25 Inactiv e 2023 85827 52087 0 Twice daily By Mouth False Coenzyme Q10 100 mg tablet [generic] 100 mg By Mouth Once daily For SUPP 100 mg 2023 Active 2023 38017 90096 0 Once daily By Mouth False Levothyroxi ne 50 mcg tablet [generic] 50mcg By Mouth Once daily For hypothyroidis m 50mcg 2023 Active 2023 64108 71463 0 Once daily By Mouth False One A Day Men Complete 240 mcg-25 mcg-300 mcg tablet 1 tab By Mouth Once daily For supplement 1 tab 2023 Active 2023 47299 15284 1 Once daily By Mouth False Cholecalcif adalberto (vitamin D3) 50 mcg (2,000 unit) tablet [generic] 1 TAB By Mouth Once daily For SUPP 1 TAB 2023 Active 2023 10856 86586 1 Once daily By Mouth False Cetirizine 10 mg tablet [generic] 1 TAB By Mouth At bedtime For Allergies 1 TAB 2023 Active 2023 69455 37335 0 At bedtime By Mouth False Timolol maleate 0.25 % eye drops [generic] 1 drop Both Eyes Twice daily For glaucoma 1 drop 2023 Active 2023 02081 37972 5 Twice daily Both Eyes False Alendronate 35 mg tablet [generic] 35mg By Mouth Every week For SIADH 35mg 2023 Active 2023 82688 85562 5 Every week By Mouth False Lantus Solostar U-100 Insulin 100 unit/mL (3 mL) subcutaneou s pen 18 units Subcutaneous Every morning For DIABETES 18 units 08/25 Inactiv e 2023 63116 00952 0 Every morning Subcut aneous False Lantus Solostar U-100 Insulin 100 unit/mL (3 mL) subcutaneou s pen 18 units Subcutaneous Every morning For DIABETES 18 units 2023 Active 2023 17894 07960 0 Every morning Subcut aneous False Linezolid 600 mg tablet [generic] 600 mg By Mouth Every 12 hours For MRSA INFECTION L BKA 600 mg 2023 Active 2023 63887 87113 1 Every 12 hours By Mouth False [...] one-time order For Diabetes 2023 Active 20232 76816 9 4 times a day Subcut aneous False Cefpodoxime 200 mg tablet [generic] 400 mg By Mouth Twice daily For MRSA INFECTION L BKA 400 mg 2023 Active 2023 28980 37911 0 Twice daily By Mouth False Brimonidine 0.1 % eye drops [generic] 1 drop Both Eyes Twice daily For glaucoma 1 drop 2023 Active 2023 41000 28749 0 Twice daily Both Eyes False Metoprolol succinate ER 50 mg tablet,exte nded release 24 hr [generic] 50 mg By Mouth Once daily HOLD FOR SBP <100, or pulse <60 For HTN 50 mg 2023 Active 2023 14387 12271 1 Once daily By Mouth False Amlodipine 2.5 mg tablet [generic] 2.5 mg By Mouth Once daily For HTN 2.5 mg 2023 Active 2023 72305 53289 5 Once daily By Mouth False Docusate sodium 100 mg capsule [generic] 100mg By Mouth Twice daily as needed For constipation HOLD FOR LOOSE STOOLS 100mg 2023 Active 2023 93762 48365 1 Twice daily as needed By Mouth False VITAL SIGNS Date Time Diastolic blood pressure Systolic blood pressure Body height Body weight Temperature SpO2 Blood Sugar Pulse Respirations 25898 8 67.00 mm[Hg] - Sitting 145.00 mm[Hg] - Sitting 98.50 Forehead Scan 96.00 % 81.00/ min 16.00/min 44418 2 67.00 mm[Hg] - Sitting 145.00 mm[Hg] - Sitting 98.50 Tympanic 81.00/ min 16.00/min 5 56.00 mm[Hg] - Sitting 142.00 mm[Hg] - Sitting 136.40 NI 100.20 Tympanic 96.00 % 92.00/ min 18.00/min
--- OUTSIDE RECORDS SUMMARY | 2024-10-03 11:26 | External Medical Summary | Continuity Of Care Document ---
Author Name Unknown Address [address] [address] Organization [facility] () Care Team Providers Care It Infrastructure Specialist Name Role Phone DO Machado Amy Primary Care Provider [phone] Allergies Allergy Reaction Start Date End Date [...] order For Diabetes 08/25 Inactiv e 2023 62308 10817 9 4 times a day Subcut aneous False Aspirin 325 mg tablet [generic] 325 By Mouth Twice daily For Anticoagulati on 325 09/25 Active 2023 34489 88357 1 Twice daily By Mouth False Ferrous sulfate 325 mg (65 mg iron) tablet [generic] 325 By Mouth Once daily For anemia 325 2023 0000 0000 Active 2023 06948 27093 5 Once daily By Mouth False Linezolid 600 mg tablet [generic] 600 mg By Mouth Every 12 hours For MRSA INFECTION L BKA 600 mg 08/25 Inactiv e 2023 53232 16067 1 Every 12 hours By Mouth False Cefpodoxime 200 mg tablet [generic] 400 mg By Mouth Twice daily For MRSA INFECTION L BKA 400 mg 08/25 Inactiv e 2023 42591 68353 0 Twice daily By Mouth False Coenzyme Q10 100 mg tablet [generic] 100 mg By Mouth Once daily For SUPP 100 mg 2023 Active 2023 49531 38766 0 Once daily By Mouth False Levothyroxi ne 50 mcg tablet [generic] 50mcg By Mouth Once daily For hypothyroidis m 50mcg 2023 Active 2023 74575 71385 0 Once daily By Mouth False One A Day Men Complete 240 mcg-25 mcg-300 mcg tablet 1 tab By Mouth Once daily For supplement 1 tab 2023 Active 2023 65686 61836 1 Once daily By Mouth False Cholecalcif adalberto (vitamin D3) 50 mcg (2,000 unit) tablet [generic] 1 TAB By Mouth Once daily For SUPP 1 TAB 2023 Active 2023 87703 13923 1 Once daily By Mouth False Cetirizine 10 mg tablet [generic] 1 TAB By Mouth At bedtime For Allergies 1 TAB 2023 Active 2023 92120 73120 0 At bedtime By Mouth False Timolol maleate 0.25 % eye drops [generic] 1 drop Both Eyes Twice daily For glaucoma 1 drop 2023 Active 2023 37228 24711 5 Twice daily Both Eyes False Alendronate 35 mg tablet [generic] 35mg By Mouth Every week For SIADH 35mg 2023 Active 2023 64817 95178 5 Every week By Mouth False Lantus Solostar U-100 Insulin 100 unit/mL (3 mL) subcutaneou s pen 18 units Subcutaneous Every morning For DIABETES 18 units 08/25 Inactiv e 2023 95275 12280 0 Every morning Subcut aneous False Lantus Solostar U-100 Insulin 100 unit/mL (3 mL) subcutaneou s pen 18 units Subcutaneous Every morning For DIABETES 18 units 2023 Active 2023 18420 42811 0 Every morning Subcut aneous False Linezolid 600 mg tablet [generic] 600 mg By Mouth Every 12 hours For MRSA INFECTION L BKA 600 mg 2023 Active 2023 96907 01117 1 Every 12 hours By Mouth False [...] one-time order For Diabetes 2023 Active 20232 48012 9 4 times a day Subcut aneous False Cefpodoxime 200 mg tablet [generic] 400 mg By Mouth Twice daily For MRSA INFECTION L BKA 400 mg 2023 Active 2023 22114 05693 0 Twice daily By Mouth False Brimonidine 0.1 % eye drops [generic] 1 drop Both Eyes Twice daily For glaucoma 1 drop 2023 Active 2023 60164 22406 0 Twice daily Both Eyes False Metoprolol succinate ER 50 mg tablet,exte nded release 24 hr [generic] 50 mg By Mouth Once daily HOLD FOR SBP <100, or pulse <60 For HTN 50 mg 2023 Active 2023 76316 22630 1 Once daily By Mouth False Amlodipine 2.5 mg tablet [generic] 2.5 mg By Mouth Once daily For HTN 2.5 mg 2023 Active 2023 20516 14463 5 Once daily By Mouth False Docusate sodium 100 mg capsule [generic] 100mg By Mouth Twice daily as needed For constipation HOLD FOR LOOSE STOOLS 100mg 2023 Active 2023 23724 16967 1 Twice daily as needed By Mouth False VITAL SIGNS Date Time Diastolic blood pressure Systolic blood pressure Body height Body weight Temperature SpO2 Blood Sugar Pulse Respirations 15826 8 67.00 mm[Hg] - Sitting 145.00 mm[Hg] - Sitting 98.50 Forehead Scan 96.00 % 81.00/ min 16.00/min 33948 2 67.00 mm[Hg] - Sitting 145.00 mm[Hg] - Sitting 98.50 Tympanic 81.00/ min 16.00/min 5 56.00 mm[Hg] - Sitting 142.00 mm[Hg] - Sitting 136.40 NI 100.20 Tympanic 96.00 % 92.00/ min 18.00/min
--- OUTSIDE RECORDS SUMMARY | 2024-10-03 11:27 | External Medical Summary | Continuity of Care Document ---
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/16/24 PAD (peripheral artery disease)(Discharge Diagnosis) - 08/16/24 Pressure ulcer of heel(Discharge Diagnosis) - 08/16/24 Hx of left BKA(Discharge Diagnosis) - 08/16/24 Discharge Disposition: Home or Self Care Attending [...] Start Date: 06/26/24 Status: Ordered Mental Status 08/16/24 Barriers to Learning one year None evide nt Mandatory Health Literacy Documentation Yes Health Literacy Communication Barriers N ever Primary Language German Problem List Condition Confirmation Course Effective Dates Status Health St atus Informant Ischemic necrosis of foot Confirmed Active PAD (peripheral artery disease) Confirmed Active Pressure ulcer of heel Confirmed Active Diagnosis Diagnosis Type Effective Dates Health Status Cl inical Service Informant Ischemic necrosis of foot Discharge Diagnosis 08/16/24 Non-Specified PAD (peripheral artery disease) Discharge Diagnosis 08/16/24 Non-Specified Open wound of right foot Discharge Diagnosis 08/16/24 Non-Specified Pressure ulcer of heel Discharge Diagnosis 08/16/24 Non-Specified Hx of left BKA Discharge Diagnosis 08/16/24 Non-Specified Procedures Procedure Date Related Diagnosis Body Site Status Amputation below-knee 1 07/04/24 C ompleted 1Left Vital Signs Most recent to oldest [Reference Range]: 1 Temperature [36.5-37.9 DegC] 36.6 DegC (08/16/24 1:07 PM) Heart Rate 72 bpm (08/16/24 1:07 PM) Respiratory Rate 18 br/min (08/16/24 1:07 PM) Blood Pressure 138/48mmHg (08/16/24 1:07 PM) Cuff Pulse Pressure 90 mmHg (08/16/24 1:07 PM) Social History Social History Type Response Smoking Status Never smoked cigaret luana Sex Male Sex Representation Male (finding) Ortho Outpt Note * Lucy Cruz: PERFORM, MODIFY MD Angelica, Marquis Rodríguez: MODIFY Event Display: Ortho Outpt Note Authored Date: [id number] Name:JUSTIN BARNES Patient Number:[id number] :1945 Date of Service:08/16/2024 CHIEF COMPLAINT: Follow-up s/p left BKA on DOS: 07/04/2024 and I&D left BKA stump infection DOS: 07/26/2024 HPI: Martha Junior presents today forfollow-up s/p left BKA and I&D procedure.He was seen by Sergey yesterday Dr. Dumont, infectious disease,who recommend3 more weeks of IV antibiotics. He has not had any drainage or other complications. He is scheduledwith the wound clinic on 08/18. Otherwise he is doing well but notes this has been a difficult process. He had a circulation testing done on the right leg and results did not indicate any necessary intervention. Hediscontinued Plavix and Eliquis but istaking baby Aspirinat this point per Dr. Farr. PHYSICAL EXAM: Focus on the left lower extremity: Knee ROM: 0 to 90 Left BKA wouldcompletely healed except for a small area anteriorly measuring 2 cm lemuel 1 cmarea anterolaterally. They appear shallow. There has been definite progress compared to previous.There isno erythema or drainage. Improved compared to last visit. Focus on the right lower extremity: 3-4 cm in diameterover heel and shows superficial good granulating base. No significant necrosis. It is tender. Right second toe has necrotic tissue at the tip. Attempted to debride the tissuewith patient's permission. Prepped with Betadine1 cm diameter eschar tip second toe sharply debrided with his permission with scissors. Distal phalanx exposed with good bleeding tissue. Foot swollen but no surrounding erythema no drainage. The bone was underneath the eschar. IMPRESSION: 79 year old male 1) 6 weeks s/p BKA and 3 weeks s/p I&D 2) Right second toe wound 3) Right heel pressure ulcer 4) Peripheral artery disease PLAN: Continue with antibiotics per recommendation frominfectious disease Follow-up with wound clinic as scheduled on 08/18/2024. Discussed I would like them to address the anterior and anterolateral portion of the stump woundas well as his right heel. For the right second toe recommend amputation. There is exposed bone. This isprobably [facility]. I think this willnot healgiven his health and I recommenda partialtoe amputation. Discussed options for treatment and given his history this is likely the best option for long-term healing and preventing progressive infection. Risks, benefits, and procedure were discussed. Surgical consent obtained for right second toe amputation.Possible surgery on Wednesday afternoon or early next week Follow-up with PA for pre-op and with me in 1 weekfor the leftBKA. ATTESTATION: I,Lucy Cruz, scribing for and in the presence of, Karlos Avina on this date,08/16/2024 13:08:55. Electronic Signature on File Electronically Reviewed/Signed by: Lucy Cruz Author Signature Dt/Tm:08/16/2024 02:44 PM Electronically Reviewed/Signed by: MD Lizzette Sanchez Signature Dt/Tm: 08/16/2024 05:39 PM Division of Sports Medicine [place] Patient Care team information Care Team Personnel Name: DO Quiroga Jessie L Position: Referring DIRECT Member Role: Primary Care Provider Address: [facility] [place] [facility] [address] [phone]
--- OUTSIDE RECORDS SUMMARY | 2024-10-03 11:27 | External Medical Summary | Continuity Of Care Document ---
Author Name Unknown Address [address] [address] Organization [facility] [place] () Care Team Providers Care Asbestos Brake Lining Finisher Helper Name Role Phone DO Machado Amy Primary Care Provider [phone] Allergies Allergy Reaction Start Date End Date [...] Day 3 0.1 mL 08/29 Active 2023 27364 20171 0 1 time Intrad ermal False Tubersol 5 tub. unit/0.1 mL intradermal injection solution [Tuberculin PPD] 0.1mL Intradermal 1 time For PPD 2nd Step Give 2nd Step PPD Day 1 and Read results Day 3 (schedule 7 days after 1st READ) 0.1mL 09/08 Active 2023 01008 50068 0 1 time Intrad ermal False Humalog [...] order For Diabetes 08/25 Inactiv e 2023 87190 75133 9 4 times a day Subcut aneous False Aspirin 325 mg tablet [generic] 325 By Mouth Twice daily For Anticoagulati on 325 09/25 Active 2023 20231 65690 1 Twice daily By Mouth False Ferrous sulfate 325 mg (65 mg iron) tablet [generic] 325 By Mouth Once daily For anemia 325 2023 Active 2023 17287 35056 5 Once daily By Mouth False Linezolid 600 mg tablet [generic] 600 mg By Mouth Every 12 hours For MRSA INFECTION L BKA 600 mg 08/25 Inactiv e 2023 35575 88180 1 Every 12 hours By Mouth False Cefpodoxime 200 mg tablet [generic] 400 mg By Mouth Twice daily For MRSA INFECTION L BKA 400 mg 08/25 Inactiv e 2023 56351 44953 0 Twice daily By Mouth False Coenzyme Q10 100 mg tablet [generic] 100 mg By Mouth Once daily For SUPP 100 mg 2023 Active 2023 72059 82663 0 Once daily By Mouth False Levothyroxi ne 50 mcg tablet [generic] 50mcg By Mouth Once daily For hypothyroidis m 50mcg 2023 Active 2023 83645 70462 0 Once daily By Mouth False One A Day Men Complete 240 mcg-25 mcg-300 mcg tablet 1 tab By Mouth Once daily For supplement 1 tab 2023 Active 2023 48063 80062 1 Once daily By Mouth False Cholecalcif adalberto (vitamin D3) 50 mcg (2,000 unit) tablet [generic] 1 TAB By Mouth Once daily For SUPP 1 TAB 2023 Active 2023 20465 72167 1 Once daily By Mouth False Cetirizine 10 mg tablet [generic] 1 TAB By Mouth At bedtime For Allergies 1 TAB 2023 Active 2023 19640 27665 0 At bedtime By Mouth False Timolol maleate 0.25 % eye drops [generic] 1 drop Both Eyes Twice daily For glaucoma 1 drop 2023 Active 2023 45175 99449 5 Twice daily Both Eyes False Alendronate 35 mg tablet [generic] 35mg By Mouth Every week For SIADH 35mg 2023 Active 2023 60172 71448 5 Every week By Mouth False Lantus Solostar U-100 Insulin 100 unit/mL (3 mL) subcutaneou s pen 18 units Subcutaneous Every morning For DIABETES 18 units 08/25 Inactiv e 2023 15400 81891 0 Every morning Subcut aneous False Lantus Solostar U-100 Insulin 100 unit/mL (3 mL) subcutaneou s pen 18 units Subcutaneous Every morning For DIABETES 18 units 2023 Active 2023 12656 0 Every morning Subcut aneous False Linezolid 600 mg tablet [generic] 600 mg By Mouth Every 12 hours For MRSA INFECTION L BKA 600 mg 2023 Active 2023 67301 56570 1 Every 12 hours By Mouth False [...] one-time order For Diabetes 2023 Active 2023 87376 60758 9 4 times a day Subcut aneous False Cefpodoxime 200 mg tablet [generic] 400 mg By Mouth Twice daily For MRSA INFECTION L BKA 400 mg 2023 Active 2023 74591 07598 0 Twice daily By Mouth False Brimonidine 0.1 % eye drops [generic] 1 drop Both Eyes Twice daily For glaucoma 1 drop 2023 Active 2023 84860 43649 0 Twice daily Both Eyes False Metoprolol succinate ER 50 mg tablet,exte nded release 24 hr [generic] 50 mg By Mouth Once daily HOLD FOR SBP <100, or pulse <60 For HTN 50 mg 2023 Active 2023 40475 87364 1 Once daily By Mouth False Amlodipine 2.5 mg tablet [generic] 2.5 mg By Mouth Once daily For HTN 2.5 mg 2023 Active 2023 30359 81952 5 Once daily By Mouth False Docusate sodium 100 mg capsule [generic] 100mg By Mouth Twice daily as needed For constipation HOLD FOR LOOSE STOOLS 100mg 2023 Active 2023 35751 74158 1 Twice daily as needed By Mouth False Atorvastati n 40 mg tablet [generic] 40mg By Mouth Once daily For HDL 40mg 2023 Active 2023 01413 88602 5 Once daily By Mouth False Tylenol 325 mg tablet 2 tabs By Mouth Every 4 hours as needed For Pain DO NOT EXCEED 3000 MG APAP/24 Hours 2 tabs 2023 Active 2023 90661 36895 0 Every 4 hours as needed By Mouth False Tylenol 325 mg tablet 2 tabs By Mouth Every 4 hours as needed For Fever >100 DO NOT EXCEED 3000 MG APAP/24 Hours 2 tabs 2023 Active 2023 29507 85973 0 Every 4 hours as needed By Mouth False Dulcolax (bisacodyl) 10 mg rectal suppository One Suppository per rectum PRN if Milk of Magnisia ineffective. Give on day 5 of no BM 1 sup 2023 Active 2023 08220 27628 1 Daily as needed Rectal False Fleet Enema 19 gram-7 gram/118 mL Administer per rectum PRN one time if dulcolax suppository not effective. Give on day 6 of no BM 1 2023 Active 2023 32815 34504 6 Daily as needed Rectal False Dextrose 50 % in water (D50W) intravenous solution [generic] Dextrose 50% evonne 20-50 ml (slow push) Intravenous if Glucagon not effective after 15 minutes. CALL 911 for ED Evaluation. 50% evonne 2023 Active 2023 70846 15254 9 Intrav enous False Glucagon (HCl) Emergency Kit 1 mg solution for injection Administer Glucagon 1 mg Intramuscular if 15 minutes after GLucose Gel is administered Glucose remains less than 70 1 mg 2023 Active 2023 01462 50626 2 Intram uscula r False Glucose Gel 40 % oral gel [Dextrose] PRN If resident is unable to swallow (with or without symptoms) and Glucose results less than 70 give GLucose 40% Gel 1 tube orally - Recheck Glucose 15 minutes after administratio n. 1 tube 2023 Active 2023 89799 44139 8 By Mouth False Milk of Magnesia 400 mg/5 mL oral suspension [Magnesium hydroxide] PRN 30ml By Mouth Daily as needed for constipation one time daily if no BM, on day 4 of no BM (PRN refer to instructions) For Constipation 30 mL 2023 Active 2023 52786 54096 6 Daily as needed By Mouth False VITAL SIGNS Date Time Diastolic blood pressure Systolic blood pressure Body height Body weight Temperature SpO2 Blood Sugar Pulse Respirations 42275 8 67.00 mm[Hg] - Sitting 145.00 mm[Hg] - Sitting 98.50 Forehead Scan 96.00 % 81.00/ min 16.00/min 67912 2 67.00 mm[Hg] - Sitting 145.00 mm[Hg] - Sitting 98.50 Tympanic 81.00/ min 16.00/min 38898 5 56.00 mm[Hg] - Sitting 142.00 mm[Hg] - Sitting 136.40 NI 100.20 Tympanic 96.00 % 92.00/ min 18.00/min
--- OUTSIDE RECORDS SUMMARY | 2024-10-03 11:27 | External Medical Summary | Continuity of Care Document ---
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 Discharge Disposition: Home or Self Care Attending Physician: MARCO Almaraz, Parviz Serna Referring Physician: MD Angelica, Marquis Rodríguez Allergies, [...] PM EDT Start Date: 06/26/24 Status: Ordered Problem List Condition Confirmation Course Effective Dates Status Health St atus Informant Ischemic necrosis of foot Confirmed Active PAD (peripheral artery disease) Confirmed Active Pressure ulcer of heel Confirmed Active Diagnosis Diagnosis Type Effective Dates Health Status Cl inical Service Informant Ischemic necrosis of foot Discharge Diagnosis 08/16/24 Procedures Procedure Date Related Diagnosis Body Site Status Amputation below-knee 1 07/04/24 C ompleted 1Left Social History Social History Type Response Smoking Status Never smoked cigaret luana Sex Male Sex Representation Male (finding) Patient Care team information Care Team Personnel Name: DO Quiroga Jessie L Position: Referring DIRECT Member Role: Primary Care Provider Address: [address] [place] [address]
--- OUTSIDE RECORDS SUMMARY | 2024-10-03 11:27 | External Medical Summary | Continuity Of Care Document ---
Author Name Unknown Address [address] [address] Organization [facility] () Care Team Providers Care Yarn Twister Name Role Phone DO Machado Amy Primary Care Provider [phone] Allergies Allergy Reaction Start Date End Date [...] Day 3 0.1 mL 08/29 Active 2023 46710 24580 0 1 time Intrad ermal False Tubersol 5 tub. unit/0.1 mL intradermal injection solution [Tuberculin PPD] 0.1mL Intradermal 1 time For PPD 2nd Step Give 2nd Step PPD Day 1 and Read results Day 3 (schedule 7 days after 1st READ) 0.1mL 09/08 Active 2023 74070 89260 0 1 time Intrad ermal False Humalog [...] order For Diabetes 08/25 Inactiv e 2023 02000 33244 9 4 times a day Subcut aneous False Aspirin 325 mg tablet [generic] 325 By Mouth Twice daily For Anticoagulati on 325 09/25 Active 2023 91015 89652 1 Twice daily By Mouth False Ferrous sulfate 325 mg (65 mg iron) tablet [generic] 325 By Mouth Once daily For anemia 325 2023 Active 2023 57547 97476 5 Once daily By Mouth False Linezolid 600 mg tablet [generic] 600 mg By Mouth Every 12 hours For MRSA INFECTION L BKA 600 mg 08/25 Inactiv e 2023 57860 49915 1 Every 12 hours By Mouth False Cefpodoxime 200 mg tablet [generic] 400 mg By Mouth Twice daily For MRSA INFECTION L BKA 400 mg 08/25 Inactiv e 2023 33559 48960 0 Twice daily By Mouth False Coenzyme Q10 100 mg tablet [generic] 100 mg By Mouth Once daily For SUPP 100 mg 2023 Active 2023 99094 05513 0 Once daily By Mouth False Levothyroxi ne 50 mcg tablet [generic] 50mcg By Mouth Once daily For hypothyroidis m 50mcg 2023 Active 2023 43102 22860 0 Once daily By Mouth False One A Day Men Complete 240 mcg-25 mcg-300 mcg tablet 1 tab By Mouth Once daily For supplement 1 tab 2023 Active 2023 97740 54463 1 Once daily By Mouth False Cholecalcif adalberto (vitamin D3) 50 mcg (2,000 unit) tablet [generic] 1 TAB By Mouth Once daily For SUPP 1 TAB 2023 Active 2023 09722 85751 1 Once daily By Mouth False Cetirizine 10 mg tablet [generic] 1 TAB By Mouth At bedtime For Allergies 1 TAB 2023 Active 2023 22631 56146 0 At bedtime By Mouth False Timolol maleate 0.25 % eye drops [generic] 1 drop Both Eyes Twice daily For glaucoma 1 drop 2023 Active 2023 49303 30444 5 Twice daily Both Eyes False Alendronate 35 mg tablet [generic] 35mg By Mouth Every week For SIADH 35mg 2023 Active 2023 05638 45189 5 Every week By Mouth False Lantus Solostar U-100 Insulin 100 unit/mL (3 mL) subcutaneou s pen 18 units Subcutaneous Every morning For DIABETES 18 units 08/25 Inactiv e 2023 09753 63742 0 Every morning Subcut aneous False Lantus Solostar U-100 Insulin 100 unit/mL (3 mL) subcutaneou s pen 18 units Subcutaneous Every morning For DIABETES 18 units 2023 Active 2023 31626 0 Every morning Subcut aneous False Linezolid 600 mg tablet [generic] 600 mg By Mouth Every 12 hours For MRSA INFECTION L BKA 600 mg 2023 Active 2023 96403 58501 1 Every 12 hours By Mouth False [...] one-time order For Diabetes 2023 Active 2023 15372 14891 9 4 times a day Subcut aneous False Cefpodoxime 200 mg tablet [generic] 400 mg By Mouth Twice daily For MRSA INFECTION L BKA 400 mg 2023 Active 2023 55890 56345 0 Twice daily By Mouth False Brimonidine 0.1 % eye drops [generic] 1 drop Both Eyes Twice daily For glaucoma 1 drop 2023 Active 2023 38496 91585 0 Twice daily Both Eyes False Metoprolol succinate ER 50 mg tablet,exte nded release 24 hr [generic] 50 mg By Mouth Once daily HOLD FOR SBP <100, or pulse <60 For HTN 50 mg 2023 Active 2023 36667 12964 1 Once daily By Mouth False Amlodipine 2.5 mg tablet [generic] 2.5 mg By Mouth Once daily For HTN 2.5 mg 2023 Active 2023 60307 87158 5 Once daily By Mouth False Docusate sodium 100 mg capsule [generic] 100mg By Mouth Twice daily as needed For constipation HOLD FOR LOOSE STOOLS 100mg 2023 Active 2023 35764 80935 1 Twice daily as needed By Mouth False Atorvastati n 40 mg tablet [generic] 40mg By Mouth Once daily For HDL 40mg 08/26 Inactiv e 2023 03693 04564 5 Once daily By Mouth False Tylenol 325 mg tablet 2 tabs By Mouth Every 4 hours as needed For Pain DO NOT EXCEED 3000 MG APAP/24 Hours 2 tabs 2023 Active 2023 82551 63640 0 Every 4 hours as needed By Mouth False Tylenol 325 mg tablet 2 tabs By Mouth Every 4 hours as needed For Fever >100 DO NOT EXCEED 3000 MG APAP/24 Hours 2 tabs 2023 Active 2023 24210 97553 0 Every 4 hours as needed By Mouth False Dulcolax (bisacodyl) 10 mg rectal suppository One Suppository per rectum PRN if Milk of Magnisia ineffective. Give on day 5 of no BM 1 sup 2023 Active 2023 21182 61447 1 Daily as needed Rectal False Fleet Enema 19 gram-7 gram/118 mL Administer per rectum PRN one time if dulcolax suppository not effective. Give on day 6 of no BM 1 2023 Active 2023 16119 73579 6 Daily as needed Rectal False Dextrose 50 % in water (D50W) intravenous solution [generic] Dextrose 50% evonne 20-50 ml (slow push) Intravenous if Glucagon not effective after 15 minutes. CALL 911 for ED Evaluation. 50% evonne 2023 Active 2023 30835 79709 9 Intrav enous False Glucagon (HCl) Emergency Kit 1 mg solution for injection Administer Glucagon 1 mg Intramuscular if 15 minutes after GLucose Gel is administered Glucose remains less than 70 1 mg 2023 Active 2023 52817 19186 2 Intram uscula r False Glucose Gel 40 % oral gel [Dextrose] PRN If resident is unable to swallow (with or without symptoms) and Glucose results less than 70 give GLucose 40% Gel 1 tube orally - Recheck Glucose 15 minutes after administratio n. 1 tube 2023 Active 2023 41071 10596 8 By Mouth False Milk of Magnesia 400 mg/5 mL oral suspension [Magnesium hydroxide] PRN 30ml By Mouth Daily as needed for constipation one time daily if no BM, on day 4 of no BM (PRN refer to instructions) For Constipation 30 mL 2023 Active 2023 89818 00174 6 Daily as needed By Mouth False Atorvastati n 40 mg tablet [generic] 08/26 Inactiv e 2023 85604 92214 5 Atorvastati n 40 mg tablet [generic] 40mg By Mouth Once daily For HDL 40mg 2023 Active 2023 63051 87633 5 Once daily By Mouth False VITAL SIGNS Date Time Diastolic blood pressure Systolic blood pressure Body height Body weight Temperature SpO2 Blood Sugar Pulse Respirations 62 8 67.00 mm[Hg] - Sitting 145.00 mm[Hg] - Sitting 98.50 Forehead Scan 96.00 % 81.00/ min 16.00/min 99957 2 67.00 mm[Hg] - Sitting 145.00 mm[Hg] - Sitting 98.50 Tympanic 81.00/ min 16.00/min 23 5 56.00 mm[Hg] - Sitting 142.00 mm[Hg] - Sitting 136.40 NI 100.20 Tympanic 96.00 % 92.00/ min 18.00/min 6 4 143.00 mg/dL 0 97.80 Tympanic 005 69832 7 60.00 mm[Hg] - Sitting 140.00 mm[Hg] - Sitting 98.00 Tympanic 84.00/ min 18.00/min
--- OUTSIDE RECORDS SUMMARY | 2024-10-03 11:27 | External Medical Summary | Continuity Of Care Document ---
Author Name Unknown Address [address] [address] Organization [facility] () Care Team Providers Care Loss Prevention Analyst Name Role Phone DO Machado Amy Primary Care Provider [phone] Allergies Allergy Reaction Start Date End Date [...] one-time order For Diabetes 2023 Active 2023 48467 15648 9 4 times a day Subcut aneous False Aspirin 325 mg tablet [generic] 325 By Mouth Twice daily For Anticoagulati on 325 09/25 Active 2023 72765 29874 1 Twice daily By Mouth False VITAL SIGNS Date Time Diastolic blood pressure Systolic blood pressure Body height Body weight Temperature SpO2 Blood Sugar Pulse Respirations 004 34894 8 67.00 mm[Hg] - Sitting 145.00 mm[Hg] - Sitting 98.50 Forehead Scan 96.00 % 81.00/ min 16.00/min 01247 004 02790 2 67.00 mm[Hg] - Sitting 145.00 mm[Hg] - Sitting 98.50 Tympanic 81.00/ min 16.00/min
--- OUTSIDE RECORDS SUMMARY | 2024-10-03 11:27 | External Medical Summary | Continuity Of Care Document ---
Author Name Unknown Address [address] [address] Organization [facility] () Care Team Providers Care Copy Holder Name Role Phone DO Machado Amy Primary Care Provider [phone] Allergies Allergy Reaction Start Date End Date [...] one-time order For Diabetes 2023 Active 2023 22918 74993 9 4 times a day Subcut aneous False Aspirin 325 mg tablet [generic] 325 By Mouth Twice daily For Anticoagulati on 325 09/25 Active 2023 82973 49240 1 Twice daily By Mouth False Ferrous sulfate 325 mg (65 mg iron) tablet [generic] 325 By Mouth Once daily For anemia 325 2023 Active 2023 36057 40437 5 Once daily By Mouth False Linezolid 600 mg tablet [generic] 600 mg By Mouth Every 12 hours For MRSA INFECTION L BKA 600 mg 09/06 Active 2023 83077 97027 1 Every 12 hours By Mouth False Cefpodoxime 200 mg tablet [generic] 400 mg By Mouth Twice daily For MRSA INFECTION L BKA 400 mg 08/31 Active 2023 46636 37394 0 Twice daily By Mouth False Coenzyme Q10 100 mg tablet [generic] 100 mg By Mouth Once daily For SUPP 100 mg 2023 Active 2023 88133 90708 0 Once daily By Mouth False Levothyroxi ne 50 mcg tablet [generic] 50mcg By Mouth Once daily For hypothyroidis m 50mcg 2023 Active 2023 31525 17049 0 Once daily By Mouth False One A Day Men Complete 240 mcg-25 mcg-300 mcg tablet 1 tab By Mouth Once daily For supplement 1 tab 2023 Active 2023 47649 05487 1 Once daily By Mouth False Cholecalcif adalberto (vitamin D3) 50 mcg (2,000 unit) tablet [generic] 1 TAB By Mouth Once daily For SUPP 1 TAB 2023 Active 2023 92011 60680 1 Once daily By Mouth False Cetirizine 10 mg tablet [generic] 1 TAB By Mouth At bedtime For Allergies 1 TAB 2023 Active 2023 30894 72459 0 At bedtime By Mouth False Timolol maleate 0.25 % eye drops [generic] 1 drop Both Eyes Twice daily For glaucoma 1 drop 2023 Active 2023 46789 10875 5 Twice daily Both Eyes False Alendronate 35 mg tablet [generic] 35mg By Mouth Every week For SIADH 35mg 2023 Active 2023 33455 52916 5 Every week By Mouth False Lantus Solostar U-100 Insulin 100 unit/mL (3 mL) subcutaneou s pen 18 units Subcutaneous Every morning For DIABETES 18 units 2023 Active 2023 76522 66134 0 Every morning Subcut aneous False VITAL SIGNS Date Time Diastolic blood pressure Systolic blood pressure Body height Body weight Temperature SpO2 Blood Sugar Pulse Respirations 96126 004 98172 8 67.00 mm[Hg] - Sitting 145.00 mm[Hg] - Sitting 98.50 Forehead Scan 96.00 % 81.00/ min 16.00/min 84883 2 67.00 mm[Hg] - Sitting 145.00 mm[Hg] - Sitting 98.50 Tympanic 81.00/ min 16.00/min 96227 5 56.00 mm[Hg] - Sitting 142.00 mm[Hg] - Sitting 136.40 NI 100.20 Tympanic 96.00 % 92.00/ min 18.00/min
--- OUTSIDE RECORDS SUMMARY | 2024-10-03 11:27 | External Medical Summary | Continuity Of Care Document ---
Author Name Unknown Address [address] [address] Organization [facility] () Care Team Providers Care Official Greeter Name Role Phone DO Machado Amy Primary Care Provider [phone] Allergies Allergy Reaction Start Date End Date [...] Day 3 0.1 mL 08/29 Active 2023 02248 27958 0 1 time Intrad ermal False Tubersol 5 tub. unit/0.1 mL intradermal injection solution [Tuberculin PPD] 0.1mL Intradermal 1 time For PPD 2nd Step Give 2nd Step PPD Day 1 and Read results Day 3 (schedule 7 days after 1st READ) 0.1mL 09/08 Active 2023 79372 20994 0 1 time Intrad ermal False Humalog [...] order For Diabetes 08/25 Inactiv e 2023 58086 73414 9 4 times a day Subcut aneous False Aspirin 325 mg tablet [generic] 325 By Mouth Twice daily For Anticoagulati on 325 09/25 Active 2023 09448 19940 1 Twice daily By Mouth False Ferrous sulfate 325 mg (65 mg iron) tablet [generic] 325 By Mouth Once daily For anemia 325 2023 Active 2023 08603 44567 5 Once daily By Mouth False Linezolid 600 mg tablet [generic] 600 mg By Mouth Every 12 hours For MRSA INFECTION L BKA 600 mg 08/25 Inactiv e 2023 31767 01624 1 Every 12 hours By Mouth False Cefpodoxime 200 mg tablet [generic] 400 mg By Mouth Twice daily For MRSA INFECTION L BKA 400 mg 08/25 Inactiv e 2023 49374 68426 0 Twice daily By Mouth False Coenzyme Q10 100 mg tablet [generic] 100 mg By Mouth Once daily For SUPP 100 mg 2023 Active 2023 77787 32012 0 Once daily By Mouth False Levothyroxi ne 50 mcg tablet [generic] 50mcg By Mouth Once daily For hypothyroidis m 50mcg 2023 Active 2023 82809 52998 0 Once daily By Mouth False One A Day Men Complete 240 mcg-25 mcg-300 mcg tablet 1 tab By Mouth Once daily For supplement 1 tab 2023 Active 2023 15135 90100 1 Once daily By Mouth False Cholecalcif adalberto (vitamin D3) 50 mcg (2,000 unit) tablet [generic] 1 TAB By Mouth Once daily For SUPP 1 TAB 2023 Active 2023 25878 20216 1 Once daily By Mouth False Cetirizine 10 mg tablet [generic] 1 TAB By Mouth At bedtime For Allergies 1 TAB 2023 Active 2023 22962 45632 0 At bedtime By Mouth False Timolol maleate 0.25 % eye drops [generic] 1 drop Both Eyes Twice daily For glaucoma 1 drop 2023 Active 2023 52315 48011 5 Twice daily Both Eyes False Alendronate 35 mg tablet [generic] 35mg By Mouth Every week For SIADH 35mg 2023 Active 2023 09758 64008 5 Every week By Mouth False Lantus Solostar U-100 Insulin 100 unit/mL (3 mL) subcutaneou s pen 18 units Subcutaneous Every morning For DIABETES 18 units 08/25 Inactiv e 2023 24407 42776 0 Every morning Subcut aneous False Lantus Solostar U-100 Insulin 100 unit/mL (3 mL) subcutaneou s pen 18 units Subcutaneous Every morning For DIABETES 18 units 2023 Active 2023 03237 0 Every morning Subcut aneous False Linezolid 600 mg tablet [generic] 600 mg By Mouth Every 12 hours For MRSA INFECTION L BKA 600 mg 2023 Active 2023 94158 07462 1 Every 12 hours By Mouth False [...] one-time order For Diabetes 2023 Active 2023 53346 72390 9 4 times a day Subcut aneous False Cefpodoxime 200 mg tablet [generic] 400 mg By Mouth Twice daily For MRSA INFECTION L BKA 400 mg 2023 Active 2023 35859 49431 0 Twice daily By Mouth False Brimonidine 0.1 % eye drops [generic] 1 drop Both Eyes Twice daily For glaucoma 1 drop 2023 Active 2023 72954 63678 0 Twice daily Both Eyes False Metoprolol succinate ER 50 mg tablet,exte nded release 24 hr [generic] 50 mg By Mouth Once daily HOLD FOR SBP <100, or pulse <60 For HTN 50 mg 2023 Active 2023 87969 38625 1 Once daily By Mouth False Amlodipine 2.5 mg tablet [generic] 2.5 mg By Mouth Once daily For HTN 2.5 mg 2023 Active 2023 09192 27776 5 Once daily By Mouth False Docusate sodium 100 mg capsule [generic] 100mg By Mouth Twice daily as needed For constipation HOLD FOR LOOSE STOOLS 100mg 2023 Active 2023 48366 53515 1 Twice daily as needed By Mouth False Atorvastati n 40 mg tablet [generic] 40mg By Mouth Once daily For HDL 40mg 2023 Active 2023 43186 89564 5 Once daily By Mouth False Tylenol 325 mg tablet 2 tabs By Mouth Every 4 hours as needed For Pain DO NOT EXCEED 3000 MG APAP/24 Hours 2 tabs 2023 Active 2023 61226 13374 0 Every 4 hours as needed By Mouth False Tylenol 325 mg tablet 2 tabs By Mouth Every 4 hours as needed For Fever >100 DO NOT EXCEED 3000 MG APAP/24 Hours 2 tabs 2023 Active 2023 93354 80509 0 Every 4 hours as needed By Mouth False Dulcolax (bisacodyl) 10 mg rectal suppository One Suppository per rectum PRN if Milk of Magnisia ineffective. Give on day 5 of no BM 1 sup 2023 Active 2023 16759 58776 1 Daily as needed Rectal False Fleet Enema 19 gram-7 gram/118 mL Administer per rectum PRN one time if dulcolax suppository not effective. Give on day 6 of no BM 1 2023 Active 2023 95946 39782 6 Daily as needed Rectal False Dextrose 50 % in water (D50W) intravenous solution [generic] Dextrose 50% evonne 20-50 ml (slow push) Intravenous if Glucagon not effective after 15 minutes. CALL 911 for ED Evaluation. 50% evonne 2023 Active 2023 87350 34838 9 Intrav enous False Glucagon (HCl) Emergency Kit 1 mg solution for injection Administer Glucagon 1 mg Intramuscular if 15 minutes after GLucose Gel is administered Glucose remains less than 70 1 mg 2023 Active 2023 15986 74857 2 Intram uscula r False Glucose Gel 40 % oral gel [Dextrose] PRN If resident is unable to swallow (with or without symptoms) and Glucose results less than 70 give GLucose 40% Gel 1 tube orally - Recheck Glucose 15 minutes after administratio n. 1 tube 2023 Active 2023 42713 54982 8 By Mouth False Milk of Magnesia 400 mg/5 mL oral suspension [Magnesium hydroxide] PRN 30ml By Mouth Daily as needed for constipation one time daily if no BM, on day 4 of no BM (PRN refer to instructions) For Constipation 30 mL 2023 Active 2023 09559 78626 6 Daily as needed By Mouth False VITAL SIGNS Date Time Diastolic blood pressure Systolic blood pressure Body height Body weight Temperature SpO2 Blood Sugar Pulse Respirations 18046 8 67.00 mm[Hg] - Sitting 145.00 mm[Hg] - Sitting 98.50 Forehead Scan 96.00 % 81.00/ min 16.00/min 58852 2 67.00 mm[Hg] - Sitting 145.00 mm[Hg] - Sitting 98.50 Tympanic 81.00/ min 16.00/min 07072 5 56.00 mm[Hg] - Sitting 142.00 mm[Hg] - Sitting 136.40 NI 100.20 Tympanic 96.00 % 92.00/ min 18.00/min
--- OUTSIDE RECORDS SUMMARY | 2024-10-03 11:27 | External Medical Summary | Continuity Of Care Document ---
Author Name Unknown Address [address] [address] Organization [facility] () Care Team Providers Care Intermodal Customer Service Name Role Phone DO Machado Amy Primary Care Provider [phone] Medications Medication Instructions Dosage Start Date End [...] Provider for one-time order For Diabetes 2023 00/00 /0000 Active 2023 32335 44547 9 4 times a day Subcut aneous False VITAL SIGNS Date Time Diastolic blood pressure Systolic blood pressure Body height Body weight Temperature SpO2 Blood Sugar Pulse Respirations 96967 8 67.00 mm[Hg] - Sitting 145.00 mm[Hg] - Sitting 98.50 Forehead Scan 96.00 % 81.00/ min 16.00/min 48017 2 67.00 mm[Hg] - Sitting 145.00 mm[Hg] - Sitting 98.50 Tympanic 81.00/ min 16.00/min
--- OUTSIDE RECORDS SUMMARY | 2024-10-03 11:27 | External Medical Summary | Continuity Of Care Document ---
Author Name Unknown Address [address] [address] Organization [facility] () Care Team Providers Care Demurrage Worker Name Role Phone DO Machado Amy Primary Care Provider [phone] Allergies Allergy Reaction Start Date End Date [...] one-time order For Diabetes 2023 Active 2023 09805 83830 9 4 times a day Subcut aneous False Aspirin 325 mg tablet [generic] 325 By Mouth Twice daily For Anticoagulati on 325 09/25 Active 2023 89799 47828 1 Twice daily By Mouth False Ferrous sulfate 325 mg (65 mg iron) tablet [generic] 325 By Mouth Once daily For anemia 325 2023 Active 2023 35748 40787 5 Once daily By Mouth False Linezolid 600 mg tablet [generic] 600 mg By Mouth Every 12 hours For MRSA INFECTION L BKA 600 mg 09/06 Active 2023 84562 91610 1 Every 12 hours By Mouth False Cefpodoxime 200 mg tablet [generic] 400 mg By Mouth Twice daily For MRSA INFECTION L BKA 400 mg 08/31 Active 2023 72288 41560 0 Twice daily By Mouth False Coenzyme Q10 100 mg tablet [generic] 100 mg By Mouth Once daily For SUPP 100 mg 2023 Active 2023 12338 26332 0 Once daily By Mouth False Levothyroxi ne 50 mcg tablet [generic] 50mcg By Mouth Once daily For hypothyroidis m 50mcg 2023 Active 2023 80724 25759 0 Once daily By Mouth False VITAL SIGNS Date Time Diastolic blood pressure Systolic blood pressure Body height Body weight Temperature SpO2 Blood Sugar Pulse Respirations 90210 8 67.00 mm[Hg] - Sitting 145.00 mm[Hg] - Sitting 98.50 Forehead Scan 96.00 % 81.00/ min 16.00/min 57478 2 67.00 mm[Hg] - Sitting 145.00 mm[Hg] - Sitting 98.50 Tympanic 81.00/ min 16.00/min 54223 5 56.00 mm[Hg] - Sitting 142.00 mm[Hg] - Sitting 136.40 NI 100.20 Tympanic 96.00 % 92.00/ min 18.00/min
--- OUTSIDE RECORDS SUMMARY | 2024-10-03 11:27 | External Medical Summary | Continuity Of Care Document ---
Author Name Unknown Address [address] [address] Organization [facility] () Care Team Providers Care Veterinary Medicine Doctor Name Role Phone DO Machado Amy Primary Care Provider [phone] Allergies Allergy Reaction Start Date End Date [...] Day 3 0.1 mL 08/29 Active 2023 18327 22059 0 1 time Intrad ermal False Tubersol 5 tub. unit/0.1 mL intradermal injection solution [Tuberculin PPD] 0.1mL Intradermal 1 time For PPD 2nd Step Give 2nd Step PPD Day 1 and Read results Day 3 (schedule 7 days after 1st READ) 0.1mL 09/08 Active 2023 04991 02849 0 1 time Intrad ermal False Humalog [...] order For Diabetes 08/25 Inactiv e 2023 25836 91626 9 4 times a day Subcut aneous False Aspirin 325 mg tablet [generic] 325 By Mouth Twice daily For Anticoagulati on 325 09/25 Active 2023 83108 43800 1 Twice daily By Mouth False Ferrous sulfate 325 mg (65 mg iron) tablet [generic] 325 By Mouth Once daily For anemia 325 2023 Active 2023 66538 99088 5 Once daily By Mouth False Linezolid 600 mg tablet [generic] 600 mg By Mouth Every 12 hours For MRSA INFECTION L BKA 600 mg 08/25 Inactiv e 2023 08537 69725 1 Every 12 hours By Mouth False Cefpodoxime 200 mg tablet [generic] 400 mg By Mouth Twice daily For MRSA INFECTION L BKA 400 mg 08/25 Inactiv e 2023 17297 30013 0 Twice daily By Mouth False Coenzyme Q10 100 mg tablet [generic] 100 mg By Mouth Once daily For SUPP 100 mg 2023 Active 2023 97885 30710 0 Once daily By Mouth False Levothyroxi ne 50 mcg tablet [generic] 50mcg By Mouth Once daily For hypothyroidis m 50mcg 2023 Active 2023 77967 49524 0 Once daily By Mouth False One A Day Men Complete 240 mcg-25 mcg-300 mcg tablet 1 tab By Mouth Once daily For supplement 1 tab 2023 Active 2023 90653 33081 1 Once daily By Mouth False Cholecalcif adalberto (vitamin D3) 50 mcg (2,000 unit) tablet [generic] 1 TAB By Mouth Once daily For SUPP 1 TAB 2023 Active 2023 27384 99479 1 Once daily By Mouth False Cetirizine 10 mg tablet [generic] 1 TAB By Mouth At bedtime For Allergies 1 TAB 2023 Active 2023 40608 04841 0 At bedtime By Mouth False Timolol maleate 0.25 % eye drops [generic] 1 drop Both Eyes Twice daily For glaucoma 1 drop 2023 Active 2023 64231 64829 5 Twice daily Both Eyes False Alendronate 35 mg tablet [generic] 35mg By Mouth Every week For SIADH 35mg 2023 Active 2023 40985 49615 5 Every week By Mouth False Lantus Solostar U-100 Insulin 100 unit/mL (3 mL) subcutaneou s pen 18 units Subcutaneous Every morning For DIABETES 18 units 08/25 Inactiv e 2023 87279 52265 0 Every morning Subcut aneous False Lantus Solostar U-100 Insulin 100 unit/mL (3 mL) subcutaneou s pen 18 units Subcutaneous Every morning For DIABETES 18 units 2023 Active 2023 28739 0 Every morning Subcut aneous False Linezolid 600 mg tablet [generic] 600 mg By Mouth Every 12 hours For MRSA INFECTION L BKA 600 mg 2023 Active 2023 31614 67087 1 Every 12 hours By Mouth False [...] one-time order For Diabetes 2023 Active 2023 66825 25083 9 4 times a day Subcut aneous False Cefpodoxime 200 mg tablet [generic] 400 mg By Mouth Twice daily For MRSA INFECTION L BKA 400 mg 2023 Active 2023 44692 46083 0 Twice daily By Mouth False Brimonidine 0.1 % eye drops [generic] 1 drop Both Eyes Twice daily For glaucoma 1 drop 2023 Active 2023 40546 43507 0 Twice daily Both Eyes False Metoprolol succinate ER 50 mg tablet,exte nded release 24 hr [generic] 50 mg By Mouth Once daily HOLD FOR SBP <100, or pulse <60 For HTN 50 mg 2023 Active 2023 04499 85030 1 Once daily By Mouth False Amlodipine 2.5 mg tablet [generic] 2.5 mg By Mouth Once daily For HTN 2.5 mg 2023 Active 2023 97055 34537 5 Once daily By Mouth False Docusate sodium 100 mg capsule [generic] 100mg By Mouth Twice daily as needed For constipation HOLD FOR LOOSE STOOLS 100mg 2023 Active 2023 90448 48744 1 Twice daily as needed By Mouth False Atorvastati n 40 mg tablet [generic] 40mg By Mouth Once daily For HDL 40mg 2023 Active 2023 27314 74265 5 Once daily By Mouth False Tylenol 325 mg tablet 2 tabs By Mouth Every 4 hours as needed For Pain DO NOT EXCEED 3000 MG APAP/24 Hours 2 tabs 2023 Active 2023 61009 85747 0 Every 4 hours as needed By Mouth False Tylenol 325 mg tablet 2 tabs By Mouth Every 4 hours as needed For Fever >100 DO NOT EXCEED 3000 MG APAP/24 Hours 2 tabs 2023 Active 2023 69083 43182 0 Every 4 hours as needed By Mouth False Dulcolax (bisacodyl) 10 mg rectal suppository One Suppository per rectum PRN if Milk of Magnisia ineffective. Give on day 5 of no BM 1 sup 2023 Active 2023 02094 26546 1 Daily as needed Rectal False Fleet Enema 19 gram-7 gram/118 mL Administer per rectum PRN one time if dulcolax suppository not effective. Give on day 6 of no BM 1 2023 Active 2023 90892 36741 6 Daily as needed Rectal False Dextrose 50 % in water (D50W) intravenous solution [generic] Dextrose 50% evonne 20-50 ml (slow push) Intravenous if Glucagon not effective after 15 minutes. CALL 911 for ED Evaluation. 50% evonne 2023 Active 2023 60155 42528 9 Intrav enous False Glucagon (HCl) Emergency Kit 1 mg solution for injection Administer Glucagon 1 mg Intramuscular if 15 minutes after GLucose Gel is administered Glucose remains less than 70 1 mg 2023 Active 2023 67440 67079 2 Intram uscula r False Glucose Gel 40 % oral gel [Dextrose] PRN If resident is unable to swallow (with or without symptoms) and Glucose results less than 70 give GLucose 40% Gel 1 tube orally - Recheck Glucose 15 minutes after administratio n. 1 tube 2023 Active 2023 57070 62433 8 By Mouth False Milk of Magnesia 400 mg/5 mL oral suspension [Magnesium hydroxide] PRN 30ml By Mouth Daily as needed for constipation one time daily if no BM, on day 4 of no BM (PRN refer to instructions) For Constipation 30 mL 2023 Active 2023 02285 68131 6 Daily as needed By Mouth False VITAL SIGNS Date Time Diastolic blood pressure Systolic blood pressure Body height Body weight Temperature SpO2 Blood Sugar Pulse Respirations 42117 8 67.00 mm[Hg] - Sitting 145.00 mm[Hg] - Sitting 98.50 Forehead Scan 96.00 % 81.00/ min 16.00/min 89644 2 67.00 mm[Hg] - Sitting 145.00 mm[Hg] - Sitting 98.50 Tympanic 81.00/ min 16.00/min 91749 5 56.00 mm[Hg] - Sitting 142.00 mm[Hg] - Sitting 136.40 NI 100.20 Tympanic 96.00 % 92.00/ min 18.00/min
--- OUTSIDE RECORDS SUMMARY | 2024-10-03 11:27 | External Medical Summary | Continuity Of Care Document ---
Author Name Unknown Address [address] [address] Organization [facility] () Care Team Providers Care Steeler Name Role Phone DO Machado Amy Primary Care Provider [phone] Allergies Allergy Reaction Start Date End Date [...] one-time order For Diabetes 2023 Active 2023 86462 26408 9 4 times a day Subcut aneous False Aspirin 325 mg tablet [generic] 325 By Mouth Twice daily For Anticoagulati on 325 09/25 Active 2023 78428 46699 1 Twice daily By Mouth False Ferrous sulfate 325 mg (65 mg iron) tablet [generic] 325 By Mouth Once daily For anemia 325 2023 Active 2023 09644 07312 5 Once daily By Mouth False VITAL SIGNS Date Time Diastolic blood pressure Systolic blood pressure Body height Body weight Temperature SpO2 Blood Sugar Pulse Respirations 28512 8 67.00 mm[Hg] - Sitting 145.00 mm[Hg] - Sitting 98.50 Forehead Scan 96.00 % 81.00/ min 16.00/min 85993 2 67.00 mm[Hg] - Sitting 145.00 mm[Hg] - Sitting 98.50 Tympanic 81.00/ min 16.00/min
--- OUTSIDE RECORDS SUMMARY | 2024-10-03 11:27 | External Medical Summary | Continuity Of Care Document ---
Author Name Unknown Address [address] [address] Organization [facility] () Care Team Providers Care Box Spring Maker Name Role Phone DO Machado Amy Primary Care Provider [phone] Allergies Allergy Reaction Start Date End Date [...] one-time order For Diabetes 2023 Active 2023 63045 20845 9 4 times a day Subcut aneous False Aspirin 325 mg tablet [generic] 325 By Mouth Twice daily For Anticoagulati on 325 09/25 Active 2023 37434 33617 1 Twice daily By Mouth False Ferrous sulfate 325 mg (65 mg iron) tablet [generic] 325 By Mouth Once daily For anemia 325 2023 Active 2023 53785 71638 5 Once daily By Mouth False Linezolid 600 mg tablet [generic] 600 mg By Mouth Every 12 hours For MRSA INFECTION L BKA 600 mg 09/06 Active 2023 38208 49558 1 Every 12 hours By Mouth False Cefpodoxime 200 mg tablet [generic] 400 mg By Mouth Twice daily For MRSA INFECTION L BKA 400 mg 08/31 Active 2023 82476 48867 0 Twice daily By Mouth False Coenzyme Q10 100 mg tablet [generic] 100 mg By Mouth Once daily For SUPP 100 mg 2023 Active 2023 33810 31998 0 Once daily By Mouth False Levothyroxi ne 50 mcg tablet [generic] 50mcg By Mouth Once daily For hypothyroidis m 50mcg 2023 Active 2023 56640 77348 0 Once daily By Mouth False One A Day Men Complete 240 mcg-25 mcg-300 mcg tablet 1 tab By Mouth Once daily For supplement 1 tab 2023 Active 2023 50667 41405 1 Once daily By Mouth False Cholecalcif adalberto (vitamin D3) 50 mcg (2,000 unit) tablet [generic] 1 TAB By Mouth Once daily For SUPP 1 TAB 2023 Active 2023 12865 07393 1 Once daily By Mouth False Cetirizine 10 mg tablet [generic] 1 TAB By Mouth At bedtime For Allergies 1 TAB 2023 Active 2023 48732 81630 0 At bedtime By Mouth False Timolol maleate 0.25 % eye drops [generic] 1 drop Both Eyes Twice daily For glaucoma 1 drop 2023 Active 2023 39401 55552 5 Twice daily Both Eyes False Alendronate 35 mg tablet [generic] 35mg By Mouth Every week For SIADH 35mg 2023 Active 2023 15269 25026 5 Every week By Mouth False Lantus Solostar U-100 Insulin 100 unit/mL (3 mL) subcutaneou s pen 18 units Subcutaneous Every morning For DIABETES 18 units 2023 Active 2023 37745 01015 0 Every morning Subcut aneous False VITAL SIGNS Date Time Diastolic blood pressure Systolic blood pressure Body height Body weight Temperature SpO2 Blood Sugar Pulse Respirations 21171 004 30026 8 67.00 mm[Hg] - Sitting 145.00 mm[Hg] - Sitting 98.50 Forehead Scan 96.00 % 81.00/ min 16.00/min 84755 2 67.00 mm[Hg] - Sitting 145.00 mm[Hg] - Sitting 98.50 Tympanic 81.00/ min 16.00/min 24554 5 56.00 mm[Hg] - Sitting 142.00 mm[Hg] - Sitting 136.40 NI 100.20 Tympanic 96.00 % 92.00/ min 18.00/min
--- OUTSIDE RECORDS SUMMARY | 2024-10-03 11:27 | External Medical Summary | Continuity Of Care Document ---
Author Name Unknown Address [address] [address] Organization [facility] () Care Team Providers Care Rn Bariatric Name Role Phone DO Machado Amy Primary Care Provider [phone] Medications Medication Instructions Dosage Start Date End [...] For Diabetes 2023 00/00 /0000 Active 2023 11269 63109 9 4 times a day Subcut aneous False Aspirin 325 mg tablet [generic] 325 By Mouth Twice daily For Anticoagulati on 325 09/25 Active 2023 03939 83286 1 Twice daily By Mouth False VITAL SIGNS Date Time Diastolic blood pressure Systolic blood pressure Body height Body weight Temperature SpO2 Blood Sugar Pulse Respirations 19970 8 67.00 mm[Hg] - Sitting 145.00 mm[Hg] - Sitting 98.50 Forehead Scan 96.00 % 81.00/ min 16.00/min 004 84797 2 67.00 mm[Hg] - Sitting 145.00 mm[Hg] - Sitting 98.50 Tympanic 81.00/ min 16.00/min
--- OUTSIDE RECORDS SUMMARY | 2024-10-03 11:27 | External Medical Summary | Continuity Of Care Document ---
Author Name Unknown Address [address] [address] Organization [facility] () Care Team Providers Care Bander Hand Name Role Phone DO Machado Amy Primary Care Provider [phone] Allergies Allergy Reaction Start Date End Date [...] Day 3 0.1 mL 08/29 Active 2023 76354 51542 0 1 time Intrad ermal False Tubersol 5 tub. unit/0.1 mL intradermal injection solution [Tuberculin PPD] 0.1mL Intradermal 1 time For PPD 2nd Step Give 2nd Step PPD Day 1 and Read results Day 3 (schedule 7 days after 1st READ) 0.1mL 09/08 Active 2023 95991 22093 0 1 time Intrad ermal False Humalog [...] order For Diabetes 08/25 Inactiv e 2023 86338 22869 9 4 times a day Subcut aneous False Aspirin 325 mg tablet [generic] 325 By Mouth Twice daily For Anticoagulati on 325 09/25 Active 2023 97476 72280 1 Twice daily By Mouth False Ferrous sulfate 325 mg (65 mg iron) tablet [generic] 325 By Mouth Once daily For anemia 325 2023 Active 2023 91009 87310 5 Once daily By Mouth False Linezolid 600 mg tablet [generic] 600 mg By Mouth Every 12 hours For MRSA INFECTION L BKA 600 mg 08/25 Inactiv e 2023 13896 12618 1 Every 12 hours By Mouth False Cefpodoxime 200 mg tablet [generic] 400 mg By Mouth Twice daily For MRSA INFECTION L BKA 400 mg 08/25 Inactiv e 2023 24514 23687 0 Twice daily By Mouth False Coenzyme Q10 100 mg tablet [generic] 100 mg By Mouth Once daily For SUPP 100 mg 2023 Active 2023 73078 50860 0 Once daily By Mouth False Levothyroxi ne 50 mcg tablet [generic] 50mcg By Mouth Once daily For hypothyroidis m 50mcg 2023 Active 2023 65570 57203 0 Once daily By Mouth False One A Day Men Complete 240 mcg-25 mcg-300 mcg tablet 1 tab By Mouth Once daily For supplement 1 tab 2023 Active 2023 96058 48804 1 Once daily By Mouth False Cholecalcif adalberto (vitamin D3) 50 mcg (2,000 unit) tablet [generic] 1 TAB By Mouth Once daily For SUPP 1 TAB 2023 Active 2023 38705 82353 1 Once daily By Mouth False Cetirizine 10 mg tablet [generic] 1 TAB By Mouth At bedtime For Allergies 1 TAB 2023 Active 2023 03444 19628 0 At bedtime By Mouth False Timolol maleate 0.25 % eye drops [generic] 1 drop Both Eyes Twice daily For glaucoma 1 drop 2023 Active 2023 83416 90426 5 Twice daily Both Eyes False Alendronate 35 mg tablet [generic] 35mg By Mouth Every week For SIADH 35mg 2023 Active 2023 69787 42247 5 Every week By Mouth False Lantus Solostar U-100 Insulin 100 unit/mL (3 mL) subcutaneou s pen 18 units Subcutaneous Every morning For DIABETES 18 units 08/25 Inactiv e 2023 77848 89835 0 Every morning Subcut aneous False Lantus Solostar U-100 Insulin 100 unit/mL (3 mL) subcutaneou s pen 18 units Subcutaneous Every morning For DIABETES 18 units 2023 Active 2023 01975 0 Every morning Subcut aneous False Linezolid 600 mg tablet [generic] 600 mg By Mouth Every 12 hours For MRSA INFECTION L BKA 600 mg 2023 Active 2023 84949 93949 1 Every 12 hours By Mouth False [...] one-time order For Diabetes 2023 Active 2023 89723 77198 9 4 times a day Subcut aneous False Cefpodoxime 200 mg tablet [generic] 400 mg By Mouth Twice daily For MRSA INFECTION L BKA 400 mg 2023 Active 2023 16864 93832 0 Twice daily By Mouth False Brimonidine 0.1 % eye drops [generic] 1 drop Both Eyes Twice daily For glaucoma 1 drop 2023 Active 2023 53815 84208 0 Twice daily Both Eyes False Metoprolol succinate ER 50 mg tablet,exte nded release 24 hr [generic] 50 mg By Mouth Once daily HOLD FOR SBP <100, or pulse <60 For HTN 50 mg 2023 Active 2023 86184 57525 1 Once daily By Mouth False Amlodipine 2.5 mg tablet [generic] 2.5 mg By Mouth Once daily For HTN 2.5 mg 2023 Active 2023 26051 78646 5 Once daily By Mouth False Docusate sodium 100 mg capsule [generic] 100mg By Mouth Twice daily as needed For constipation HOLD FOR LOOSE STOOLS 100mg 2023 Active 2023 76382 90670 1 Twice daily as needed By Mouth False Atorvastati n 40 mg tablet [generic] 40mg By Mouth Once daily For HDL 40mg 08/26 Inactiv e 2023 64673 63768 5 Once daily By Mouth False Tylenol 325 mg tablet 2 tabs By Mouth Every 4 hours as needed For Pain DO NOT EXCEED 3000 MG APAP/24 Hours 2 tabs 2023 Active 2023 18426 41814 0 Every 4 hours as needed By Mouth False Tylenol 325 mg tablet 2 tabs By Mouth Every 4 hours as needed For Fever >100 DO NOT EXCEED 3000 MG APAP/24 Hours 2 tabs 2023 Active 2023 81790 08568 0 Every 4 hours as needed By Mouth False Dulcolax (bisacodyl) 10 mg rectal suppository One Suppository per rectum PRN if Milk of Magnisia ineffective. Give on day 5 of no BM 1 sup 2023 Active 2023 11242 27191 1 Daily as needed Rectal False Fleet Enema 19 gram-7 gram/118 mL Administer per rectum PRN one time if dulcolax suppository not effective. Give on day 6 of no BM 1 2023 Active 2023 63493 22136 6 Daily as needed Rectal False Dextrose 50 % in water (D50W) intravenous solution [generic] Dextrose 50% evonne 20-50 ml (slow push) Intravenous if Glucagon not effective after 15 minutes. CALL 911 for ED Evaluation. 50% evonne 2023 Active 2023 87195 08507 9 Intrav enous False Glucagon (HCl) Emergency Kit 1 mg solution for injection Administer Glucagon 1 mg Intramuscular if 15 minutes after GLucose Gel is administered Glucose remains less than 70 1 mg 2023 Active 2023 54023 52583 2 Intram uscula r False Glucose Gel 40 % oral gel [Dextrose] PRN If resident is unable to swallow (with or without symptoms) and Glucose results less than 70 give GLucose 40% Gel 1 tube orally - Recheck Glucose 15 minutes after administratio n. 1 tube 2023 Active 2023 24659 82970 8 By Mouth False Milk of Magnesia 400 mg/5 mL oral suspension [Magnesium hydroxide] PRN 30ml By Mouth Daily as needed for constipation one time daily if no BM, on day 4 of no BM (PRN refer to instructions) For Constipation 30 mL 2023 Active 2023 54604 90203 6 Daily as needed By Mouth False Atorvastati n 40 mg tablet [generic] 08/26 Inactiv e 2023 63428 60289 5 Atorvastati n 40 mg tablet [generic] 40mg By Mouth Once daily For HDL 40mg 2023 Active 2023 77734 94328 5 Once daily By Mouth False MediHoney HCS 4 1/2in X 4 1/2in bandage Cleanse area with NSS, apply medihoney hydrocolloid dressing, non adherent dressing, kerlix secure with paper tape daily. For wound stage III 2023 Active 2023 04836 73452 1 Once daily Topica l False VITAL SIGNS Date Time Diastolic blood pressure Systolic blood pressure Body height Body weight Temperature SpO2 Blood Sugar Pulse Respirations 85966 004 83893 8 67.00 mm[Hg] - Sitting 145.00 mm[Hg] - Sitting 98.50 Forehead Scan 96.00 % 81.00/ min 16.00/min 46998 004 15800 2 67.00 mm[Hg] - Sitting 145.00 mm[Hg] - Sitting 98.50 Tympanic 81.00/ min 16.00/min 28117 004 09107 5 56.00 mm[Hg] - Sitting 142.00 mm[Hg] - Sitting 136.40 NI 100.20 Tympanic 96.00 % 92.00/ min 18.00/min 67555 004 03084 6 47159 004 67972 4 143.00 mg/dL 90474 004 80265 0 97.80 Tympanic 76793 005 74513 7 60.00 mm[Hg] - Sitting 140.00 mm[Hg] - Sitting 98.00 Tympanic 84.00/ min 18.00/min 31730 005 08167 0 63.00 mm[Hg] - Sitting 141.00 mm[Hg] - Sitting 98.20 Tympanic 92.00 % 63.00/ min 16.00/min 94515 005 89632 8 69.00 mm[Hg] - Sitting 106.00 mm[Hg] - Sitting 97.20 Tympanic 63325 005 23033 1 367.00 mg/dL 72225 005 46635 2 97.20 Tympanic 85595 005 10686 4 97.20 Tympanic 68704 005 10030 0 69.00 mm[Hg] - Sitting 106.00 mm[Hg] - Sitting 69.00/ min 93022 005 94803 3 452.00 mg/dL 53201 005 49826 3 452.00 mg/dL
--- OUTSIDE RECORDS SUMMARY | 2024-10-03 11:27 | External Medical Summary | Continuity Of Care Document ---
Author Name Unknown Address [address] [address] Organization [facility] () Care Team Providers Care Drill Hand Name Role Phone DO Machado Amy Primary Care Provider [phone] Allergies Allergy Reaction Start Date End Date [...] one-time order For Diabetes 2023 Active 2023 33776 94651 9 4 times a day Subcut aneous False Aspirin 325 mg tablet [generic] 325 By Mouth Twice daily For Anticoagulati on 325 09/25 Active 2023 76915 85502 1 Twice daily By Mouth False Ferrous sulfate 325 mg (65 mg iron) tablet [generic] 325 By Mouth Once daily For anemia 325 2023 Active 2023 32636 62915 5 Once daily By Mouth False VITAL SIGNS Date Time Diastolic blood pressure Systolic blood pressure Body height Body weight Temperature SpO2 Blood Sugar Pulse Respirations 55059 8 67.00 mm[Hg] - Sitting 145.00 mm[Hg] - Sitting 98.50 Forehead Scan 96.00 % 81.00/ min 16.00/min 25784 2 67.00 mm[Hg] - Sitting 145.00 mm[Hg] - Sitting 98.50 Tympanic 81.00/ min 16.00/min
--- NOTE | 2024-10-03 11:39 | Operative Report ---
Post Operative Report Pre & Post Diagnosis Operation Date: 10/03/24 09:20 Pre-Op Diagnosis: Ischemic Necrosis of Foot Post-Op Diagnosis: Ischemic Necrosis of Foot I identified the patient and participated in the time-out.: Yes Procedure Operation Date: 10/03/24 09:20 Actual Procedures p Right Second Toe Amputation(Right) - Marquis Dominguez MD Surgeon Marquis Dominguez MD Assisted Living Assistant Gege Paz PA-C; no fellow or resident available Estimated Blood Loss 3 Findings Consistent with Post-Op Diagnosis Specimens Right second toe Anesthesia Type MAC Regional Description of Procedure Patient was taken to the operating room and placed under IV sedation with a peripheral digital block of the right second toe. He was given 1 g of IV vancomycin and 1 g of IV Ancef preoperatively. Time out was performed. He was prepped and draped in routine sterile fashion. Is present during the entire case and assisted with positioning, tissue retraction, amputation and closure. Please see Dr. Dominguez's operative report for further details regarding today's procedure. Patient was awakened and transferred to the recovery room in stable condition I attest to the content of the Intraoperative Record and any orders documented therein. Any exceptions are noted below.
--- NOTE | 2024-10-03 11:49 | Fluoroscopy Report ---
FL toe RT 2V CLINICAL HISTORY: RIGHT SECOND TOE AMPUTATION COMPARISON STUDY: 08/18/2024 FLUOROSCOPY TIME: 2.4 seconds FLUOROSCOPY IMAGES: 1 EXPOSURE DOSE: 0.08 mGy FINDINGS: Prior amputation of the first distal phalanx. Interval amputation of the second toe at the level of the metatarsal phalangeal joint. No unexpected opaque foreign bodies. IMPRESSION: Fluoroscopic assistance as above. ACT 112: Negative or not required by law. Electronically signed by: Juan Lou M.D. 10/03/2024 11:47 AM
--- NOTE | 2024-10-03 11:49 | Anesthesiology Progress Note ---
Date of Service October 03, 2024 Anesthesia Post Procedure Vital Signs Vital Signs: Temp Pulse Pulse Resp BP Pulse Ox O2 Del Method 10/03/24 11:35 36.1 C L 76 14 144/67 H 99 Oxymask 10/03/24 08:08 36.7 C 68 20 141/57 H 98 Room Air O2 Flow Rate 10/03/24 11:35 6 10/03/24 08:08 Transfer of Care Handoff Completed per policy Notes Mental Status: alert / awake / arousable Patient Amnestic to Procedure: Yes Nausea / Vomiting: adequately controlled Pain: adequately controlled Airway Patency, RR, SpO2: stable & adequate BP & HR: stable & adequate Hydration State: stable & adequate Anesthetic Complications: no major complications apparent and Pt Satisfied with anesthetic care
--- NOTE | 2024-10-03 12:07 | Operative Report ---
Post Operative Report Pre & Post Diagnosis Operation Date: 10/03/24 09:20 Pre-Op Diagnosis: Failure of wound healing status post right foot second toe amputation Post-Op Diagnosis: Same I identified the patient and participated in the time-out.: Yes Procedure Operation Date: 10/03/24 09:20 Actual Procedures p Right Second Toe Amputation(Right) - Marquis Dominguez MD Surgeon Marquis Dominguez MD Ct Tech Gege Paz PA-C; no fellow or resident available, duarte almanza MS Estimated Blood Loss 3 Findings Consistent with Post-Op Diagnosis Specimens Right second toe for permanent specimen, culture of the right second toe for routine C&S Anesthesia Type MAC Regional Complications none Disposition Accompanied Patient To Recovery: No Disposition: Recovery Room Indications Nathen is 79 years old. He is diabetic. He has severe peripheral artery disease and diabetes. He had a right foot second toe distal amputation 6 weeks ago for ischemic necrosis. This wound unfortunately was discovered to not of healed last week. He is taken to the operating room for a revision amputation of the right foot second toe. Description of Procedure Informed consent. Patient identified. He identified the procedure site as the right foot second toe which I marked with my initials. A preoperative surgical timeout was performed. A preop dose of IV antibiotics was given. He was taken to the operating room positioned supine on the operating room table. A tourniquet was applied to the right thigh but not inflated. A bump was placed under the right hip. He has an ischemic wound consisting of a superficial eschar 1-1/2 to 2 cm in diameter over the posterior aspect of his heel. There was an open wound of the right second toe with protrusion of the proximal phalanx. There was no bleeding and the wound was opened and dried and crusted. No erythema or drainage. No purulence. The foot was scrubbed then prepped and draped with Betadine in the usual sterile fashion. DVT prophylaxis intraoperatively with mechanical devices. Postop early mobility and aspirin. Mechanical devices. 3 to 4 mm of the skin margin distally was excised back to healthy bleeding tissue. A longitudinal incision was made over the dorsal aspect of the toe back to the level of the MTP joint. Subperiosteal exposure of the proximal phalanx was performed and it was amputated through the MTP joint and sent as a specimen. The flexor tendons were released directly off of the bone. The flexor tendons were then identified pulled into the wound and amputated at the wound base and allowed to retract. The extensor tendon was dissected out and resected as well. Irrigation was performed. There was good bleeding tissue throughout the wound area. No purulence was noted. Unfortunately more skin could not be removed as we were right at the base of the webspace of the interval between the second and third toe. I placed 3 simple stitches [id number] to close the longitudinal division followed by 3 loosely approximated stitches to bring the remnant of the plantar flap anteriorly to close the amputation. Prior to closure a culture was obtained of the wound cavity. Copious irrigation was performed prior to closure and there was good punctate bleeding throughout which was controlled with pressure. Prior to the start of the procedure 1% lidocaine with epinephrine and half percent Marcaine were injected for digital block. Sedation was administered. The tourniquet was not inflated. The leg was cleaned with wet and dry sponges and a soft roll dressing was applied Xeroform 4 x 4's with fluffs between the toes and abundant padding over the heel and forefoot with the postop shoe. Jonathan wrap. Patient awakened from anesthesia brought difficulty and taken to recovery in stable condition. The resected bone was sent for specimen. Culture was obtained. Counts were correct and blood loss is estimated to be 3 cc. At the conclusion of the operation I spoke the patient's informed her my findings. Postop instructions were given. 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 He will continue with IV antibiotics and offloading of the foot. I attest to the content of the Intraoperative Record and any orders documented therein. Any exceptions are noted below.
[2024-10-03] MEDS ORDERED: TAMSULOSIN HCL 0.4 MG CAP PO PRN (13:00)
[2024-10-03] MEDS ORDERED: PHARMACY GLYCEMIC MGMT CONSULT PRN (13:00)
[2024-10-03] MEDS ORDERED: NALOXONE HCL 0.4 MG/1 ML VIAL/CARP IV PRN (13:00)
[2024-10-03] MEDS ORDERED: ONDANSETRON INJ 2 MG/ML 2 ML VIAL IV PRN (13:00)
[2024-10-03] MEDS ORDERED: VANCOMYCIN CONSULT ACTIVE PRN ×3 (13:00)
[2024-10-03] MEDS ORDERED: MAGNESIUM HYDROXIDE SUSP 30 ML UDC PO PRN (13:00)
[2024-10-03] MEDS ORDERED: bisacodyL 10 MG SUPP PR PRN (13:00)
[2024-10-03] MEDS ORDERED: GLUCOSE 10 TAB/TUBE PO PRN (14:00)
[2024-10-03] MEDS ORDERED: CARBOHYDRATES FOR HYPOGLYCEMIA PO PRN (14:00)
[2024-10-03] MEDS ORDERED: GLUCAGON FOR INJ 1 MG VIAL SQ PRN (14:00)
[2024-10-03] MEDS ORDERED: DEXTROSE 50% 50 ML SYRINGE IV PRN (14:00)
[2024-10-03] MEDS ORDERED: GLUCOSE 40% GEL 15 GM TUBE PO PRN (14:00)
--- NOTE | 2024-10-03 14:11 | Pharmacy Report ---
Pharmacy PK ABX Note - Date of Service October 03, 2024 - Assessment and Plan Assessment 79 year old M receiving vancomycin and cefepime for treatment of bone and joint infection. POD #0 right second toe amputation. Toe culture pending. Renal function stable. Day #1 of antimicrobial therapy. Plan Vancomycin * Loading dose: 1000 mg IV x 1 (pre op) * Maintenance dose: 1000 mg IV every 24 hours starting this afternoon * Regimen is predicted to achieve target AUC/SHIRA of 400-600 mg/L.hr * Will obtain a level after ~ 48h of therapy, or sooner if clinically indicated Pharmacy will continue to follow and will adjust dose/frequency as necessary. Thank you. Pharmacy has transitioned to AUC monitoring for vancomycin. AUC/SHIRA is the preferred PK/PD target and is associated with decreased risk of nephrotoxicity compared to traditional trough targets.
[2024-10-03] MEDS: INSULIN ASPART PER UNIT CHARGE SC SCH (14:13)
[2024-10-03] MEDS: LANTUS PER UNIT CHARGE SC ONE (14:15)
[2024-10-03] MEDS: amLODIPine BESYLATE 5 MG TAB PO SCH (14:15)
[2024-10-03] MEDS: CHOLECALCIFEROL 25 MCG (1000 UNITS) TAB PO SCH (14:16)
--- NOTE | 2024-10-03 14:17 | Pharmacy Report ---
Pharmacy Glycemic Short Note 2 - Date of Service October 03, 2024 - Glycemic Short BSG Results (Last 24 hours): 10/03/24 10/03/24 10/03/24 07:50 07:58 11:44 Glucose 277 H POC Glucose 287 H 238 H 10/03/24 13:15 Glucose POC Glucose 244 H OUTPATIENT ANTIDIABETIC REGIMEN: * Lantus 18 units SQ qAM * Novolog 3 units qAM, 3-5 units w/ lunch, and 4-10 units with dinner HbA1C: ___ ASSESSMENT: * Pt is a 79 year old male s/p toe amputation with a history of DM1 on insulin therapy @ home. Pharmacy consulted to assist with glycemic management. * BSGs high since admission 287-238mg/dL. * Receiving IV antibiotics and diet ordered. POD #0. * Will give a reduced dose of home Lantus now (~85% of home dose). Novolog 30/11 ACHS based upon previous admission parameters. PLAN FOR INPATIENT GLYCEMIC CONTROL: * Hold outpatient oral diabetes medications * Basal insulin * Lantus 15 units SQ X 1- reassess basal tomorrow * Bolus insulin * NovoLog per scale ACHS or Q6hrs while NPO * Goal Range: Low 110 mg/dL - High 140 mg/dL * Correction Factor: 30 mg/dL/unit * Nutritional / Prandial insulin per carb ratio of 1 unit per 11 grams CHO consumed
--- NOTE | 2024-10-03 14:51 | Consultation ---
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 S/P R 2nd toe amp - repeat 2/2 poor wound healing Hx of left BKA Recent Postop infection of residual limb with MRSA completed antibiotics: pain/wound management per ortho await wound cultures - continue perioperative antibiotics Hx SIADH: Stable, Na 133 Monitor Hx CAD/CABG/PAD: Hx carotid stenosis/HTN: Follows with vascular surgery Continue Toprol/amlodipine/Lipitor/ASA Hx DM1: Takes lispro and Lantus at home, glycemic consult placed, a1c in a.m. it was 7.7 in June 4 times daily BGM, continue to monitor appreciate glycemic pharmacy assistance Hx hypothyroidism: Continue levothyroxine Full code DVT prophylaxis: Defer to Surgeon Dispo: per primary I spent a total of 46 minutes reviewing notes, outpatient records, labs, medication, coordinating, documenting and providing care for this patient excluding time spent in the performance of separately billed services. Thank you for this consultation. We will follow the patient with you during their hospital stay. You can reach a member of the [facility] Hospitalist Team 14/06 via hospitalist role on tiger text. Pt was seen and examined in collaboration with Dr. Ledbetter, please see addendum Supervising Physician Co-Signing Physician Notes 79-year-old male with PMH of left BKA June 2024, SIADH, anemia, CAD/CABG, PAD, carotid stenosis, HTN, T1DM, CKD 3, hypothyroidism is seen as a medical consult after elective right second toe amputation secondary to failure of wound healing. He was getting antibiotic preoperatively for about 4 days as a prophylaxis, currently on IV antibiotic per orthopedics, await operative culture results. Postoperatively, he is hemodynamically stable, feels well, no complaints. PT/OT/DVT prophylaxis per primary team. On exam: GENERAL: Alert and oriented x3. NAD, on RA. HEENT: No pallor, no icterus. Pupils equal, round and reactive to light. Oral mucosa moist. NECK: No JVD, no neck masses. HEART: S1 and S2 heard. Regular rate and rhythm. No murmur, no gallop. RESPIRATORY SYSTEM: Normal AP diameter. No accessory muscle use. No wheezing, no crackles. ABDOMEN: Soft, bowel sounds present, nontender, no distention. CENTRAL NERVOUS SYSTEM: No facial droop. Speech is clear. Obeys simple commands. Moves extremities. EXTREMITIES: Lt BKA stump healthy, RLE w/ clean dressing w/o soakage. Distal NV status wnl x rle. I have seen and examined the patient and have discussed the case with the provider above. I agree with the assessment and plan as stated. Time spent: 15 min. History of Present Illness Requesting Physician: Dr. 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 Patient was recently hospitalized on 07/28/2024 s/p left BKA with a postop infection of stump. S/p left knee I&D, revision amputation left leg on 08/15. OR cultures were growing staph MRSA treated with IV Dapto. He was seen by ID who recommended Linezolid and Rocephin. He was further discharged on Cefpodoxime. He was discharged to [facility] on 08/25/24. Post operatively pt feels well. He denies pain. He states he has more pain in his residual limb. He denies f/c/s, chest pain, sob, n/v/d. He took his metoprolol this morning. His outpt records were reviewed. Hx obtained from pt himself. He states orthopedics placed him on prophylactic antibiotics prior to the procedure. He has completed his course of antibiotics with his left residual limb. He states he was having some constipation but this improved after routinely taking colace and senna. Allergies Allergy/AdvReac Type Severity Reaction Status Date / Time tramadol Allergy Severe horrible Verified 10/03/24 08:15 experience>muscle stiffness, low bs amoxicillin [From Augmentin] AdvReac Severe Vomiting Verified 10/03/24 08:15 clavulanic acid AdvReac Severe Vomiting Verified 10/03/24 08:15 [From Augmentin] codeine AdvReac Severe Vomiting Verified 10/03/24 08:15 sulfamethoxazole AdvReac Severe Vomiting Verified 10/03/24 08:15 [From Bactrim] trimethoprim [From Bactrim] AdvReac Severe Vomiting Verified 10/03/24 08:15 Home Medications Medication Instructions Recorded Confirmed Type atorvastatin 40 mg tablet (Lipitor) 40 mg PO 1700 08/24/19 10/03/24 History cholecalciferol (vitamin D3) 50 2,000 units PO 1200 #90 caps 08/24/19 10/03/24 History mcg (2,000 unit) capsule coenzyme Q10 100 mg capsule 100 mg PO QPM 08/24/19 10/03/24 History levothyroxine 50 mcg tablet 50 mcg PO QAM #90 tabs 08/24/19 10/03/24 History nxoaeljz-zunmaiew-ndclz acid 400 1 tab PO DAILY 08/24/19 10/03/24 History mcg-vit K 20 mcg-lycop 300 mcg tablet (One-A-Day Men's Multivitamin) alendronate 35 mg tablet 35 mg PO WK 05/22/24 10/03/24 History cetirizine 10 mg tablet (Allergy 10 mg PO QPM 05/22/24 10/03/24 History Relief (cetirizine)) insulin glargine 100 unit/mL 18 unit subcut QAM 05/22/24 10/03/24 History subcutaneous solution (Lantus U-100 Insulin) insulin lispro 100 unit/mL See Rx Instructions subcut .COMPLEX 05/22/24 10/03/24 History subcutaneous pen (Humalog KwikPen (U-100) Insulin) timolol 0.25 % eye drops 1 drp ophthalmic (eye) BID 05/22/24 10/03/24 History brimonidine 0.1 % eye drops 1 drp ophthalmic (eye) BID 06/27/24 10/03/24 History (Alphagan P) amlodipine 2.5 mg tablet 2.5 mg PO 1200 06/29/24 10/03/24 History metoprolol succinate 50 mg 50 mg PO QAM 06/29/24 10/03/24 History tablet,extended release 24 hr acetaminophen 500 mg tablet 1,000 mg (2 x 500 mg) PO Q8H PRN 07/07/24 10/03/24 Rx (Tylenol Extra Strength) pain #30 tabs docusate sodium 100 mg capsule 100 mg PO BID PRN Constipation 08/11/24 10/03/24 History ferrous sulfate 325 mg (65 mg 325 mg PO QAM #14 tabs 08/22/24 10/03/24 Rx iron) tablet,delayed release ProSource 1 ea PO DAILY 10/02/24 10/03/24 History aspirin 81 mg tablet,delayed 81 mg PO HS 10/02/24 10/03/24 History release cefpodoxime 100 mg tablet 200 mg PO BID 10/02/24 10/03/24 History doxycycline hyclate 100 mg tablet 100 mg PO BID 10/02/24 10/03/24 History nut.tx.gluc.intol,lac-free,soy 1 ea PO DAILY 10/02/24 10/03/24 History (Glucerna oral liquid) Patient History Medical History MRSA (methicillin resistant Staphylococcus aureus) with below the knee amputation (06/2024 and 07/2024) Neuropathy Anemia pt given 1 unit PRBCs during 07/25/24-07/28/24 hospital admission - pt unsure if 2nd infusion done Mitral regurgitation mild-mod per 03/2024 ECHO - [facility] Diabetic foot ulcers current: necrosis R 2nd toe and R heel would; following with wound care. 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; Discharged on DOAC (DOAC D/C at 08/11/24 vascular visit; pt to replace with [id number] daily) Chronic kidney disease stage 3 - no mfts Proliferative diabetic retinopathy Osteopenia CAD (coronary artery disease) s/p 4 vessel CABG 2004 [facility] Ashlie thyroiditis PVD (peripheral vascular disease) Type 1 diabetes IDDM Hyperlipidemia Hypertension Hypothyroidism Surgical History Amputation of toe of right foot - history of right partial big toe amputation - right 2nd toe amputation 08/18/24= Done under [facility] with LMA #4 (iGel) History of flexible sigmoidoscopy Hx of left BKA 07/04/24 S/P PICC central line placement no longer has History of amputation (07/26/24) I&D, left bka revision: LMA#4 iGel; pt remains on IV abx and following with wound care (due to stump infection) History of colonoscopy S/P eye surgery retinopexy bilateral laser surgery History of cataract surgery bilateral History of cardiac cath (09/2003) at [facility]. 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 Beliefs That Will Affect Care: None Current Living Situation: Spouse Other Information That Helps Us Care for You: No Feels Safe at Home: Yes Safety Concerns: Feels Safe At This Time Assistive Devices: Glasses, Walker and Wheelchair Review of Systems Review of Systems: All systems reviewed & are unremarkable except as noted in HPI & below Physical Exam Physical Exam: Constitutional: WD/WN, vitals as above, NAD, sitting up in bed, pleasant, conversing easily Head: Normocephalic, Atraumatic Eyes: PERRL, conjunctivae normal, anicteric sclerae ENMT: external ear and nose normal, oropharynx normal poor dentition Neck: trachea midline, no thyromegaly normal visual inspection Respiratory: normal respiratory effort, lungs clear to auscultation, no wheeze, rales, rhonchi. Normal insp/exp effort, no accessory muscle use Cardiovascular: RRR, no murmur, no edema, L BKA, compression dressing in place Vessels: no JVD or carotid bruit Chest: normal inspection of chest Abdomen: normal bowel sounds, soft, nontender, no hepatosplenomegaly Musculoskeletal: no cyanosis or clubbing, L BKA, R 2nd toe amp dressing CDI Skin: no rashes, warm and dry normal turgor Neurologic: no face palsy, no dysarthria CN's II-XI intact bilaterally and moves all extremities Psychiatric: A+Ox3, euthymic affect Lymphatic: no cervical or axillary lymphadenopathy : deferred Results & Data Vital Signs (Past 12 Hours) Vital Signs Temp Pulse Pulse Resp BP Pulse Ox O2 Del Method 10/03/24 13:58 36.5 C 69 16 147/67 H 100 Room Air 10/03/24 13:32 36.5 C 69 16 157/74 H 100 Room Air 10/03/24 13:02 36.5 C 69 16 159/65 H 100 Room Air 10/03/24 12:25 58 L 13 130/66 97 Room Air 10/03/24 12:10 62 20 131/59 L 98 Room Air 10/03/24 11:55 36.5 C 60 18 140/75 98 Room Air 10/03/24 11:45 65 16 151/63 H 99 Room Air 10/03/24 11:35 36.1 C L 76 14 144/67 H 99 Oxymask 10/03/24 08:08 36.7 C 68 20 141/57 H 98 Room Air O2 Flow Rate 10/03/24 13:58 10/03/24 13:32 10/03/24 13:02 10/03/24 12:25 10/03/24 12:10 10/03/24 11:55 10/03/24 11:45 10/03/24 11:35 6 10/03/24 08:08 Laboratory Results Short CBC 10/03/24 Range/Units 07:50 WBC 8.83 (4.8-10.8) K/ul Hgb 11.7 L (14.0-18.0) g/dl Hct 35.4 L (42.0-52.0) % Plt Count 293 (130-400) K/uL BMP 10/03/24 07:50 Sodium 133 L Potassium 4.2 Chloride 103 Carbon Dioxide 21 BUN 47 H Creatinine 1.17 Glucose 277 H Calcium 9.5 Diagnostic Findings Toe X-Ray 10/03/24 00:00 FL toe RT 2V CLINICAL HISTORY: RIGHT SECOND TOE AMPUTATION COMPARISON STUDY: 08/18/2024 FLUOROSCOPY TIME: 2.4 seconds FLUOROSCOPY IMAGES: 1 EXPOSURE DOSE: 0.08 mGy FINDINGS: Prior amputation of the first distal phalanx. Interval amputation of the second toe at the level of the metatarsal phalangeal joint. No unexpected opaque foreign bodies. IMPRESSION: Fluoroscopic assistance as above. ACT 112: Negative or not required by law. Electronically signed by: Juan Lou M.D. 10/03/2024 11:47 AM Medications Administered Current Inpatient Medications Acetaminophen (Acetaminophen 500 Mg Tab) 1,000 mg PO Q8H PRN PRN Reason: pain Stop: 11/02/24 12:59 Amlodipine Besylate (Amlodipine Besylate 5 Mg Tab) 2.5 mg PO Q24H LUIS MANUEL Stop: 11/02/24 13:59 Last Admin: 10/03/24 14:15 Dose: 2.5 mg Aspirin (Aspirin 81 Mg Ectab) 81 mg PO HS LUIS MANUEL Stop: 11/02/24 20:59 Atorvastatin Calcium (Atorvastatin 40 Mg Tab) 40 mg PO Q24H LUIS MANUEL Stop: 11/02/24 16:59 Bisacodyl (Bisacodyl 10 Mg Supp) 10 mg [place] DAILY PRN PRN Reason: Constipation Stop: 11/02/24 12:59 Brimonidine Tartrate (Brimonidine Tar 0.1% 75 Drops/5 Ml Btl) 1 drops OP BID LUIS MANUEL Stop: 11/02/24 20:59 Cetirizine HCl (Cetirizine Hcl 10 Mg Tablet) 10 mg PO QPM LUIS MANUEL Stop: 11/02/24 20:59 Dextrose (Dextrose 50% 50 Ml Syringe) 25 - 50 ml IV UD PRN; Protocol PRN Reason: Hypoglycemia Protocol Stop: 11/02/24 13:59 Docusate Sodium (Docusate Sodium 100 Mg Cap) 100 mg PO BID PRN PRN Reason: Constipation Stop: 11/02/24 12:59 Ferrous Sulfate (Ferrous Sulfate 325 Mg Tab) 325 mg PO QAM LUIS MANUEL Stop: 11/03/24 08:59 Glucagon (Glucagon For Inj 1 Mg Vial) 1 mg SQ UD PRN; Protocol PRN Reason: Hypoglycemia Protocol Stop: 11/02/24 13:59 Glucose (Glucose 40% Gel 15 Gm Tube) 15 - 30 gm PO UD PRN; Protocol PRN Reason: Hypoglycemia Protocol Stop: 11/02/24 13:59 Glucose (Glucose 10 Tab/Tube) 4 - 8 tab PO UD PRN; Protocol PRN Reason: Hypoglycemia Protocol Stop: 11/02/24 13:59 Cefepime HCl (Maxipime 2000mg) 2,000 mg in 20 mls @ 5 mls/min IV Q12H LUIS MANUEL; Protocol Stop: 11/14/24 13:59 Vancomycin HCl (Vancomycin Hcl) 1,000 mg in 270 mls @ 200 mls/hr IV Q24H LUIS MANUEL Stop: 11/14/24 15:59 Insulin Aspart (Insulin Aspart Per Unit Charge) 0 units SC ACHS LUIS MANUEL Stop: 11/02/24 13:59 Last Admin: 10/03/24 14:13 Dose: 4 units Levothyroxine Sodium (Levothyroxine Sodium 50 Mcg Tablet) 50 mcg PO DAILYBB [facility] Stop: 11/03/24 06:29 Magnesium Hydroxide (Magnesium Hydroxide Susp 30 Ml Udc) 30 ml PO Q6H PRN PRN Reason: Constipation Stop: 11/02/24 12:59 Metoprolol Succinate (Metoprolol Succ 50mg Ext Rel Tab) 50 mg PO QAM [facility] Stop: 11/03/24 08:59 Miscellaneous (Carbohydrates For Hypoglycemia ) 15 - 30 gm PO UD PRN PRN Reason: Hypoglycemia Treatment Stop: 11/02/24 13:59 Miscellaneous Information (Vancomycin Consult Active) 1 each N/A UD PRN PRN Reason: Consult Stop: 11/02/24 12:59 Miscellaneous Information (Pharmacy Glycemic Mgmt Consult) 1 each N/A UD PRN PRN Reason: Consult Stop: 11/02/24 12:59 Multivitamins/Minerals (Cerovite Adv Formula Tab) 1 tab PO DAILY [facility] Stop: 11/03/24 08:59 Naloxone HCl (Naloxone Hcl 0.4 Mg/1 Ml Vial/Carp) 0.1 mg IV Q5M PRN PRN Reason: Oversedation/Resp Depression Stop: 11/02/24 12:59 Nutritional Formula (Prosource No Carb 30 Ml/Pkt) 30 ml PO DAILY [facility] Stop: 11/03/24 08:59 Ondansetron HCl (Ondansetron Inj 2 Mg/Ml 2 Ml Vial) 4 mg IV Q6H PRN PRN Reason: Nausea And Vomiting Stop: 11/02/24 12:59 Senna/Docusate Sodium (Docusate Sodium/Senna 50/8.6mg Tab) 1 tab PO BID LUIS MANUEL Stop: 11/02/24 20:59 Tamsulosin HCl (Tamsulosin Hcl 0.4 Mg Cap) 0.4 mg PO QAM PRN PRN Reason: UNABLE to void Stop: 11/02/24 12:59 Timolol Maleate (Timolol Maleate 0.25% Op Soln 5 Ml Btl) 1 drops OP BID LUIS MANUEL Stop: 11/02/24 20:59 Vitamin D (Cholecalciferol 25 Mcg (1000 Units) Tab) 50 mcg PO Q24H LUIS MANUEL Stop: 11/02/24 13:59 Last Admin: 10/03/24 14:16 Dose: 50 mcg
[2024-10-03] MEDS: CEFEPIME 2000MG 2,000 MG/20 ML SYR IV SCH (15:21)
[2024-10-03] MEDS: ATORVASTATIN 40 MG TAB PO SCH (17:14)
[2024-10-03] MEDS ORDERED: NON-FORMULARY MEDICATION (Coenzyme Q10 100 mg capsule) PO SCH (21:00)
[2024-10-03] MEDS ORDERED: DEXTROSE 5% IV SCH (21:00)
[2024-10-03] MEDS ORDERED: VANCOMYCIN HCL IV SCH (21:00)
[2024-10-03] MEDS: TIMOLOL MALEATE 0.25% OP SOLN 5 ML BTL OP SCH (21:35)
[2024-10-03] MEDS: CETIRIZINE HCL 10 MG TABLET PO SCH (21:36)
[2024-10-03] MEDS: BRIMONIDINE TAR 0.1% 75 DROPS/5 ML BTL OP SCH (21:36)
[2024-10-03] MEDS: ASPIRIN 81 MG ECTAB PO SCH (21:36)
[2024-10-03] MEDS: DOCUSATE SODIUM/SENNA 50/8.6MG TAB PO SCH (21:46)
[2024-10-04] MEDS: INSULIN ASPART PER UNIT CHARGE SC SCH (03:31)
[2024-10-04] MEDS: LEVOTHYROXINE SODIUM 50 MCG TABLET PO SCH (05:33)
[2024-10-04 06:30] LABS: Hematocrit (blood only) 29.7 % (42.0-52.0); Hemoglobin 9.8 g/dl (14.0-18.0); Mean Corpuscular Hemoglobin 29.6 pg (25.0-34.0); Mean Corpuscular Volume 89.7 fL (80.0-100.0); Mean Platelet Volume 9.9 fL (9.4-12.4); Platelet Count 251 K/uL (130-400); RDW Coefficient of Variation 16.4 % (11.5-14.5); RDW Standard Deviation 54.1 fL (36.4-46.3); Red Blood Count 3.31 M/uL (4.70-6.10); White Blood Count 10.23 K/ul (4.8-10.8)
[2024-10-04 06:43] LABS: BUN Creatinine Ratio 35.2 (10-20); Calcium 8.9 mg/dl (8.6-10.3); Creatinine Clr Calc Pharmacy 34.8 ml/min; Potassium 4.2 mmol/L (3.5-5.1)
[2024-10-04 07:01] LABS: Estimated Average Glucose 166 mg/dl; Hemoglobin A1C 7.4 % (4.5-5.6)
[2024-10-04] MEDS: METOPROLOL SUCC 50MG EXT REL TAB PO SCH (08:06)
[2024-10-04] MEDS: FERROUS SULFATE 325 MG TAB PO SCH (08:06)
[2024-10-04] MEDS: CEROVITE ADV FORMULA TAB PO SCH (08:06)
[2024-10-04] MEDS: LANTUS PER UNIT CHARGE SC SCH (08:07)
[2024-10-04] MEDS: PROSOURCE NO CARB 30 ML/PKT PO SCH (08:39)
[2024-10-04] MEDS ORDERED: NON-FORMULARY MEDICATION (Nut.Tx.Gluc.Intol,Lac-Free,Soy [Glucerna] Liquid) PO SCH (09:00)
--- NOTE | 2024-10-04 09:27 | Orthopedic Progress Note ---
Date of Service October 04, 2024 Assessment & Plan (1) Status post amputation of toe of right foot: Plan: Findings discussed with patient. Recommend keeping pressure off the heel and offloading the foot.Culture growing out Serratia marcescens. He was on cefpo doxime for this previously. Consult with ID. Also spoke with Dr. Watson on [place] text about patient's elevated renal function today. Patient informed. I think he will need to stay here today to get the antibiotics and kidney function addressed. Aspirin for DVT prophylaxis. Labs noted. Eosinophils are back within normal limits. The toe grew out Serratia the last time. That is what is currently growing. Will stop the vancomycin and cefepime and resume ceftriaxone which was the previous antibiotic. (2) PAD (peripheral artery disease): Admission and Anticipated Discharge Date Admission Date: October 03, 2024 Subjective Mr. Gonzalez is resting comfortably in bed. He reports no problems. I discussed with him the results of the surgical procedure. Physical Exam Physical Exam: Dressing is clean and dry. Capillary refill in the exposed toes are less than 2 seconds. There is no significant swelling. His heel is elevated off the bed. Results & Data Vital Signs (Past 12 Hours) Vital Signs Temp Pulse Pulse Resp BP Pulse Ox O2 Del Method 10/04/24 08:05 Room Air 10/04/24 08:01 37.0 C 67 18 120/56 L 97 Room Air 10/04/24 03:02 36.7 C 68 16 112/57 L 97 Room Air 10/03/24 23:14 37.2 C 66 16 99/57 L 97 Room Air Laboratory Results Laboratory Results WBC 10.23 K/ul (4.8-10.8) 10/04/24 05:46 RBC 3.31 M/uL (4.70-6.10) L 10/04/24 05:46 Hgb 9.8 g/dl (14.0-18.0) L 10/04/24 05:46 Hct 29.7 % (42.0-52.0) L 10/04/24 05:46 MCV 89.7 fL (80.0-100.0) 10/04/24 05:46 MCH 29.6 pg (25.0-34.0) 10/04/24 05:46 MCHC 33.0 g/dL (32.0-36.0) 10/04/24 05:46 RDW Std Deviation 54.1 fL (36.4-46.3) H 10/04/24 05:46 RDW Coeff of Swetha 16.4 % (11.5-14.5) H 10/04/24 05:46 Plt Count 251 K/uL (130-400) 10/04/24 05:46 MPV 9.9 fL (9.4-12.4) 10/04/24 05:46 Immature Gran % (Auto) 0.2 % 10/03/24 07:50 Neut % (Auto) 55.8 % 10/03/24 07:50 Lymph % (Auto) 28.3 % 10/03/24 07:50 [place] % (Auto) 9.7 % 10/03/24 07:50 Eos % (Auto) 5.2 % 10/03/24 07:50 Baso % (Auto) 0.8 % 10/03/24 07:50 Neut # (Auto) 4.92 K/uL (1.40-6.50) 10/03/24 07:50 Lymph # (Auto) 2.50 K/uL (1.20-3.40) 10/03/24 07:50 [place] # (Auto) 0.86 K/uL (0.11-0.59) H 10/03/24 07:50 Eos # (Auto) 0.46 K/uL (0.00-0.50) 10/03/24 07:50 Baso # (Auto) 0.07 K/uL (0.00-0.20) 10/03/24 07:50 Immature Gran # (Auto) 0.02 K/uL (0.01-0.20) 10/03/24 07:50 Sodium 135 mmol/L (136-145) L 10/04/24 05:46 Potassium 4.2 mmol/L (3.5-5.1) 10/04/24 05:46 Chloride 105 mmol/L (98-107) 10/04/24 05:46 Carbon Dioxide 23 mmol/L (21-32) 10/04/24 05:46 Anion Gap 7 (3-11) 10/04/24 05:46 BUN 50 mg/dl (6-23) H 10/04/24 05:46 Creatinine 1.42 mg/dl (0.6-1.4) H 10/04/24 05:46 Est Cr Clr Drug Dosing 34.8 ml/min 10/04/24 05:46 eGFR 50.26 10/04/24 05:46 BUN/Creatinine Ratio 35.2 (10-20) H 10/04/24 05:46 Glucose 235 mg/dl (70-99(Fasting)) H 10/04/24 05:46 POC Glucose 250 mg/dl (70-99) H 10/04/24 07:20 Estimat Average Glucose 166 mg/dl 10/04/24 05:46 Hemoglobin A1c 7.4 % (4.5-5.6) H 10/04/24 05:46 Calcium 8.9 mg/dl (8.6-10.3) 10/04/24 05:46 Impressions
[2024-10-04] MEDS: SODIUM CHLORIDE 0.9% 1,000 ML IV ONE (10:20)
[2024-10-04] MEDS: cefTRIAXone SODIUM 1,000 MG/50 ML BAG IV SCH (10:21)
--- NOTE | 2024-10-04 10:57 | Infectious Disease Consult ---
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 He was seen in the office and second toe had eschar, which was debrided and underneath bone was exposed. S/p OR 10/03 and underwent right 2nd toe amputation at [facility], cx and path sent. Hes been afebrile, vss. WBC wnl. Cr up to 1.42 today. OR cx with S marcescens. OR path in process. Per ortho note, suspect all diseased bone is removed and need for treatment of SSTI. He as on vanc/cefepime that is now changed to CTX. ID consulted 10/04. Awaiting OR cx and path. Will direct abx accordingly. # Right second toe with poor wound healing s/p amputation 10/03 # Recent LE infections # h/p T1DM - f/u OR cx and path - continue on CTX - if no c/f residual OM, then plans to complete a short course of abx for c/f SSTI ID will continue to follow. If questions or concerns, contact via [employer] or Infectious Disease Call Center . Kelly Ariza MD [facility], Division of Infectious Diseases IDConnect: [phone] Consultation Information Consultation was provided via telemedicine using two-way real-time interactive telecommunication between the patient and the telemedicine provider. For the duration of the visit, the provider was performing the assessment from a different facility than the patient. This includesuse of bluetooth stethoscope forauscultationperformed by the telepresenter that the telemedicine provider can hear if described in the physical exam. Orbitread Operator contact information: Please call ID Connect Call Center . 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 He was seen in the office and second toe had eschar, which was debrided and underneath bone was exposed. He did not have any pain. S/p OR 10/03 and underwent right 2nd toe amputation at [facility], cx and path sent. Hes been afebrile, vss. WBC wnl. Cr up to 1.42 today. OR cx with S marcescens. OR path in process. Per ortho note, suspect all diseased bone is removed and need for treatment of SSTI. He as on vanc/cefepime that is now changed to CTX. ID consulted 10/04. On evaluation, patient reports that he has been feeling well. He had some ankle swelling recently but that had come down. No redness on his leg or toes. He had not had any fevers. No abdominal pain, vomiting, diarrhea. Allergies Allergy/AdvReac Type Severity Reaction Status Date / Time tramadol Allergy Severe horrible Verified 10/03/24 08:15 experience>muscle stiffness, low bs amoxicillin [From Augmentin] AdvReac Severe Vomiting Verified 10/03/24 08:15 clavulanic acid AdvReac Severe Vomiting Verified 10/03/24 08:15 [From Augmentin] codeine AdvReac Severe Vomiting Verified 10/03/24 08:15 sulfamethoxazole AdvReac Severe Vomiting Verified 10/03/24 08:15 [From Bactrim] trimethoprim [From Bactrim] AdvReac Severe Vomiting Verified 10/03/24 08:15 Home Medications Medication Instructions Recorded Confirmed Type atorvastatin 40 mg tablet (Lipitor) 40 mg PO 1700 08/24/19 10/03/24 History cholecalciferol (vitamin D3) 50 2,000 units PO 1200 #90 caps 08/24/19 10/03/24 History mcg (2,000 unit) capsule coenzyme Q10 100 mg capsule 100 mg PO QPM 08/24/19 10/03/24 History levothyroxine 50 mcg tablet 50 mcg PO QAM #90 tabs 08/24/19 10/03/24 History riocckbf-ulzuuwtx-ljwhx acid 400 1 tab PO DAILY 08/24/19 10/03/24 History mcg-vit K 20 mcg-lycop 300 mcg tablet (One-A-Day Men's Multivitamin) alendronate 35 mg tablet 35 mg PO WK 05/22/24 10/03/24 History cetirizine 10 mg tablet (Allergy 10 mg PO QPM 05/22/24 10/03/24 History Relief (cetirizine)) insulin glargine 100 unit/mL 18 unit subcut QAM 05/22/24 10/03/24 History subcutaneous solution (Lantus U-100 Insulin) insulin lispro 100 unit/mL See Rx Instructions subcut .COMPLEX 05/22/24 10/03/24 History subcutaneous pen (Humalog KwikPen (U-100) Insulin) timolol 0.25 % eye drops 1 drp ophthalmic (eye) BID 05/22/24 10/03/24 History brimonidine 0.1 % eye drops 1 drp ophthalmic (eye) BID 06/27/24 10/03/24 History (Alphagan P) amlodipine 2.5 mg tablet 2.5 mg PO 1200 06/29/24 10/03/24 History metoprolol succinate 50 mg 50 mg PO QAM 06/29/24 10/03/24 History tablet,extended release 24 hr acetaminophen 500 mg tablet 1,000 mg (2 x 500 mg) PO Q8H PRN 07/07/24 10/03/24 Rx (Tylenol Extra Strength) pain #30 tabs docusate sodium 100 mg capsule 100 mg PO BID PRN Constipation 08/11/24 10/03/24 History ferrous sulfate 325 mg (65 mg 325 mg PO QAM #14 tabs 08/22/24 10/03/24 Rx iron) tablet,delayed release [employer] 1 ea PO DAILY 10/02/24 10/03/24 History aspirin 81 mg tablet,delayed 81 mg PO HS 10/02/24 10/03/24 History release cefpodoxime 100 mg tablet 200 mg PO BID 10/02/24 10/03/24 History doxycycline hyclate 100 mg tablet 100 mg PO BID 10/02/24 10/03/24 History nut.tx.gluc.intol,lac-free,soy 1 ea PO DAILY 10/02/24 10/03/24 History (Glucerna oral liquid) Patient History Medical History 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; Discharged on DOAC (DOAC D/C at 08/11/24 vascular visit; pt to replace with [id number] daily) Chronic kidney disease stage 3 - no sample case porter Proliferative diabetic retinopathy Osteopenia CAD (coronary artery disease) s/p 4 vessel CABG 2004 [facility] Ashlie thyroiditis PVD (peripheral vascular disease) Type 1 diabetes IDDM Hyperlipidemia Hypertension Hypothyroidism Surgical History Amputation of toe of right foot - history of right partial big toe amputation - right 2nd toe amputation 08/18/24= Done under [facility] with LMA #4 (iGel) History of flexible sigmoidoscopy Hx of left BKA 07/04/24 S/P PICC central line placement no longer has History of amputation (07/26/24) I&D, left bka revision: LMA#4 iGel; pt remains on IV abx and following with wound care (due to stump infection) History of colonoscopy S/P eye surgery retinopexy bilateral laser surgery History of cataract surgery bilateral History of cardiac cath (09/2003) at [facility]. no stents Hx of CABG (10/11/03) CABG x 4 2002 [facility] Family History Father Gout Other No family history of adverse response to anesthesia Social History Smoking Status: Never smoker Second Hand Exposure: No; Do You Dip or Chew Tobacco: No; Tobacco Cessation Education Requested by Patient: No Hx Alcohol Use: No Hx Substance Use: No Preferred Language: Divehi Communication Ability: Effective Site Identification Specialist Required: No Beliefs That Will Affect Care: None Current Living Situation: Spouse Other Information That Helps Us Care for You: No Feels Safe at Home: Yes Safety Concerns: Feels Safe At This Time Assistive Devices: Glasses, Walker and Wheelchair Review of System 10-point review of systems reviewed and are negative except for as above. Physical Exam Physical Exam: General: Awake, alert, no acute distress HEENT: NC/AT, EOMI, mmm Neck: supple Lungs: respirations non-labored Heart: nl peripheral perfusion Abdomen: soft, NT/ND Ext: right leg with postop dressing Skin: no rash Neuro: moving all extremities Results & Data Vital Signs (Past 12 Hours) Vital Signs Temp Pulse Pulse Resp BP Pulse Ox O2 Del Method 10/04/24 08:05 Room Air 10/04/24 08:01 37.0 C 67 18 120/56 L 97 Room Air 10/04/24 03:02 36.7 C 68 16 112/57 L 97 Room Air 10/03/24 23:14 37.2 C 66 16 99/57 L 97 Room Air Laboratory Results Labs reviewed. Diagnostic Findings Imaging reviewed.
--- NOTE | 2024-10-04 14:13 | Pharmacy Report ---
Pharmacy Glycemic Short Note 2 - Date of Service October 04, 2024 - Glycemic Short BSG Results (Last 24 hours): 10/03/24 10/03/24 10/03/24 16:43 16:46 20:31 Glucose POC Glucose 325 H* 389 H* 182 H 10/04/24 10/04/24 10/04/24 05:46 07:20 11:35 Glucose 235 H POC Glucose 250 H 223 H OUTPATIENT ANTIDIABETIC REGIMEN: * Lantus 18 units SQ qAM * Novolog 3 units qAM, 3-5 units w/ lunch, and 4-10 units with dinner HbA1C: 7.4 ASSESSMENT: 10/04 * Patient received total of 37 units of insulin yesterday, of which 15 units were basal * Fasting BSG 235 mg/dL - will increase to outpatient dose of 18 units this AM * Anticipate BSGs to improve throughout the day, will loosen novolog with dinner 10/03 * Pt is a 79 year old male s/p toe amputation with a history of DM1 on insulin therapy @ home. Pharmacy consulted to assist with glycemic management. * BSGs high since admission 287-238mg/dL. * Receiving IV antibiotics and diet ordered. POD #0. * Will give a reduced dose of home Lantus now (~85% of home dose). Novolog / ACHS based upon previous admission parameters. PLAN FOR INPATIENT GLYCEMIC CONTROL: * Hold outpatient oral diabetes medications * Basal insulin * Lantus 18 units daily * Bolus insulin * NovoLog per scale ACHS or Q6hrs while NPO * Goal Range: Low 110 mg/dL - High 140 mg/dL * Correction Factor: 35 mg/dL/unit * Nutritional / Prandial insulin per carb ratio of 1 unit per 11 grams CHO consumed
[2024-10-04] MEDS: ACETAMINOPHEN 500 MG TAB PO PRN (15:12)
--- NOTE | 2024-10-04 17:49 | Hospitalist Progress Note ---
Date of Service October 04, 2024 Assessment & Plan (1) Status post amputation of toe of right foot: (2) PAD (peripheral artery disease): (3) Type 1 diabetes mellitus with complications: (4) Hypertension: Plan Patient is a 79 yr male with a past medical history of left below-knee amputation on 07/04/2024, SIADH, anemia, CAD/CABG, PAD, carotid stenosis, HTN, DM type I, CKD 3, hypothyroidism who presented to the hospital today for elective Right second toe amputation 2/2 failure of wound healing. Nonhealing diabetic foot wound S/P R 2nd toe amputation by Dr. Dominguez on 10/03/2024 H/O Left BKA Recent Postop infection of residual limb with MRSA Wound culture: Preliminary growing Serratia Pain/wound management per ortho IV Vanco, cefepime transition to Rocephin Appreciate infectious disease input Follow-up pathology report to rule out osteo Acute kidney injury Creatinine 1.4 today Vancomycin discontinued Monitor renal function Avoid nephrotoxic agents as able Continue IV fluids Chronic hyponatremia H/O SIADH Sodium 135 today Monitor Hx CAD/CABG/PAD: Hx carotid stenosis/HTN: Follows with vascular surgery Continue Toprol/amlodipine/Lipitor/ASA DM Type I Takes lispro and Lantus at home, glycemic consult placed, a1c in a.m. it was 7.7 in June 4 times daily BGM, continue to monitor Appreciate glycemic pharmacy assistance Continue insulin, adjust as needed Hypothyroidism: Continue levothyroxine DVT Px: As per primary team CODE STATUS Full code Admission and Anticipated Discharge Date Admission Date: October 04, 2024 Subjective Patient is seen and examined at bedside States having some discomfort of right foot at surgical site Denies any chest pain, dyspnea, nausea, vomiting, abdominal pain No other complaints Review of Systems Review of Systems: All systems reviewed & are unremarkable except as noted in Subjective Physical Exam Physical Exam: Physical Exam: Vitals signs as noted above General Appearance:Moderately built and nourished, no apparent distress Head: normocephalic, Atraumatic Eyes: normal inspection, EOMI Neck: supple, Trachea midline Respiratory/Chest: Normal breath sounds, CTA, No accessory muscle use Cardiovascular: S1, S2, No murmur Abdomen/GI:Soft, Non tender, Bowel sounds present Extremities/Musculoskeletal:normal inspection, L BKA, R foot surgical site in dressing Neurologic/Psych:AAOX3, grossly no focal neurological deficits Skin: normal color, warm Results & Data Results & Data Vital Signs (Past 12 Hours) Vital Signs Temp Pulse Pulse Resp BP Pulse Ox O2 Del Method 10/04/24 13:05 36.5 C 65 18 118/58 L 100 Room Air 10/04/24 11:36 37.2 C 64 16 112/64 98 Room Air 10/04/24 08:05 Room Air 10/04/24 08:01 37.0 C 67 18 120/56 L 97 Room Air Laboratory Results Short CBC 10/04/24 Range/Units 05:46 WBC 10.23 (4.8-10.8) K/ul Hgb 9.8 L (14.0-18.0) g/dl Hct 29.7 L (42.0-52.0) % Plt Count 251 (130-400) K/uL [facility] 10/04/24 05:46 Sodium 135 L Potassium 4.2 Chloride 105 Carbon Dioxide 23 BUN 50 H Creatinine 1.42 H Glucose 235 H Calcium 8.9
[2024-10-04] MEDS: DOCUSATE SODIUM 100 MG CAP PO PRN (20:49)
[2024-10-05 06:19] LABS: Hematocrit (blood only) 31.5 % (42.0-52.0); Hemoglobin 10.5 g/dl (14.0-18.0); Mean Corpuscular Hemoglobin 29.7 pg (25.0-34.0); Mean Corpuscular Hgb Conc 33.3 g/dL (32.0-36.0); Mean Platelet Volume 9.7 fL (9.4-12.4); Platelet Count 242 K/uL (130-400); RDW Standard Deviation 52.8 fL (36.4-46.3); Red Blood Count 3.54 M/uL (4.70-6.10); White Blood Count 12.24 K/ul (4.8-10.8)
[2024-10-05 06:40] LABS: BUN Creatinine Ratio 31.5 (10-20); Calcium 9.2 mg/dl (8.6-10.3); Creatinine Clr Calc Pharmacy 44.5 ml/min; Magnesium 1.8 mg/dl (1.7-2.4)
[2024-10-05 07:34] VITALS: RESP 16; TEMP 99; O2SAT 99
--- NOTE | 2024-10-05 09:20 | Infectious Disease Progress Nt ---
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 He was seen in the office and second toe had eschar, which was debrided and underneath bone was exposed. S/p OR 10/03 and underwent right 2nd toe amputation at [facility], cx and path sent. Hes been afebrile, vss. WBC wnl. Cr up to 1.42, now downtrended. OR cx with S marcescens. OR path in process. Per ortho note, suspect all diseased bone is removed and need for treatment of SSTI. He was on vanc/cefepime that was changed to CTX. ID consulted 10/04. Per Dr. Dominguez, all diseased bone is likely removed since entire proximal phalanx was taken out. Based on sensitivities, PO regimen should be adequate. Follow up path. # Right second toe with poor wound healing s/p amputation 10/03 # Recent LE infections # h/p T1DM - f/u OR path - continue on CTX - if plans for discharge, then can go home on cefpodoxime 400mg PO bid x 5-7 days for SSTI and f/u path report ID will continue to follow. If questions or concerns, contact via [employer] or Infectious Disease Call Center . Kelly Ariza MD [facility], Division of Infectious Diseases [employer]Connect: [phone] Admission and Anticipated Discharge Date Admission Date: October 04, 2024 Subjective This patient recommendation is based on a telemedicine consult request which was completed asynchronously through chart review and information provided by the primary physician. The patient was not seen or examined today. The evaluation is consultative in nature and all patient care and treatment decisions can either be accepted or rejected by the patient's primary hospital-based treating physician using their own independent medical judgment for their patient. Time Spent Reviewing Chart: 31+ minutes Results & Data Vital Signs (Past 12 Hours) Vital Signs Temp Pulse Resp BP BP Pulse Ox O2 Del Method 10/05/24 07:33 37.2 C 73 16 164/67 H 99 Room Air 10/05/24 06:58 36.8 C 101 H 18 125/83 91 Nasal Cannula O2 Flow Rate 10/05/24 07:33 10/05/24 06:58 4 Laboratory Results Labs reviewed.
--- NOTE | 2024-10-05 11:04 | Orthopedic Progress Note ---
Date of Service October 05, 2024 Assessment & Plan (1) Status post amputation of toe of right foot: Plan: POD 2 - s/p right 2nd toe amputation with Dr. Yang May be OOB with post op shoe on right foot. WBAT RLE with walker or sliding board for transfers to chair due to recent left knee BKA. PT/OT as ordered Ice to right foot as needed for swelling Elevate right foot to reduce swelling. Allowed for full ankle ROM as tolerated. Continue ASA 81 mg daily for DVT prophylaxis. Mildly elevated WBC - but no indications of infection. Nothing concerns with wounds currently.Findings discussed with patient. Will recheck CBC and PRP early next week as outpatient. Cultures growing Serratia Marcescens. Will plan for discharge home with Cefpodoxime 400mg BID x 14 days (per Dr. Yang) until his next appt with him. Patient understands and agrees with the plan. All questions answered. Follow up Wednesday as scheduled for dressing change. Plan for home today. Kidney function improved to normal today. Dr. Yang present for today's visit. Dr. Yang addendum: Serratia pansensitive except for tobramycin. I think skin and soft tissue. Unhealthy bone removed. Spoke with ID. Will discharge on cefpodoxime for 2 weeks. Renal function back to baseline however the white count has bumped up today. I will monitor this as an outpatient and recheck PRP and CBC on Wednesday. I will be out of town for 10 days starting tomorrow. Patient aware. (2) Pressure ulcer of right heel: Plan: Seen by Inpatient wound care nurse today Continue tracing wound edges with Betadine swab daily. Dressing changes daily and as needed Keep pressure off of heels Waffle boots ordered for right side. Post op shoe when out of bed for transfers Will need outpatient wound clinic appts. (3) PAD (peripheral artery disease): Admission and Anticipated Discharge Date Admission Date: October 04, 2024 Supervising Physician Co-Signing Physician Notes Subjective Patient resting in bed. No complaints of pain. Seen in conjunction with Inpatient Wound Care nurse. Feels well. Has been tolerating regular diet. Physical Exam Physical Exam: Dressing is clean and dry. Capillary refill in the exposed toes are less than 2 seconds. There is no significant swelling. His heel is elevated off the bed. Musculoskeletal: Exam of right foot: Post op dressings removed, incision clean, dry and intact. No active drainage. No edema or erythema or right 2nd toe. Normal diminished sensation. Dorsalis pedis pulse 1+. able to wiggle toes, cap refill <2 sec. Reapplied xeroform, 4x4's, kerlix and tish bandage with caution to not add any additional pressure. Right heel wound with dried eschar. Nontender to palpation. No underlying fluctuance or drainage. Traced wound edges with betadine and dry gauze applied. Results & Data Vital Signs (Past 12 Hours) Vital Signs Temp Pulse Resp BP BP Pulse Ox O2 Del Method 10/05/24 07:33 37.2 C 73 16 164/67 H 99 Room Air 10/05/24 06:58 36.8 C 101 H 18 125/83 91 Nasal Cannula O2 Flow Rate 10/05/24 07:33 10/05/24 06:58 4 Laboratory Results 10/03/24 11:16 Gram Stain - Final Toe,Right Second Aerobic and Anaerobic Culture - Preliminary Serratia marcescens 10/05/24 10/05/24 10/04/24 07:32 05:50 20:44 WBC 12.24 H RBC 3.54 L Hgb 10.5 L Hct 31.5 L MCV 89.0 MCH 29.7 MCHC 33.3 RDW Std Deviation 52.8 H RDW Coeff of Swetha 16.0 H Plt Count 242 MPV 9.7 Sodium 138 Potassium 4.0 Chloride 107 Carbon Dioxide 23 Anion Gap 8 BUN 35 H Creatinine 1.11 D Est Cr Clr Drug Dosing 44.5 eGFR 67.55 BUN/Creatinine Ratio 31.5 H Glucose 138 H POC Glucose 126 H 174 H Calcium 9.2 Magnesium 1.8 10/04/24 10/04/24 10/04/24 16:48 16:24 16:03 WBC RBC Hgb Hct MCV MCH MCHC RDW Std Deviation RDW Coeff of Swetha Plt Count MPV Sodium Potassium Chloride Carbon Dioxide Anion Gap BUN Creatinine Est Cr Clr Drug Dosing eGFR BUN/Creatinine Ratio Glucose POC Glucose 92 65 L* 61 L* Calcium Magnesium 10/04/24 11:35 WBC RBC Hgb Hct MCV MCH MCHC RDW Std Deviation RDW Coeff of Swetha Plt Count MPV Sodium Potassium Chloride Carbon Dioxide Anion Gap BUN Creatinine Est Cr Clr Drug Dosing eGFR BUN/Creatinine Ratio Glucose POC Glucose 223 H Calcium Magnesium
--- NOTE | 2024-10-05 11:24 | Discharge Summary ---
Date of Service October 05, 2024 Discharge Data Consultations 10/03/24 14:44 Consult Hospitalist Routine 10/04/24 09:24 Consult Infectious Diseases Routine Procedures Performed Operation Date: 10/03/24 09:20 Actual Procedures p Right Second Toe Amputation(Right) - Marquis Dominguez MD Hospital Course (1) Status post amputation of toe of right foot: Tre was kept in observation at [facility] after undergoing an elective right second toe amputation with Dr. Dominguez on October 03, 2024. His surgery was performed with IV sedation and a peripheral digital block. He was given IV Ancef prior to his surgery. He tolerated the procedure well without any intraoperative complications. Postoperatively he was allowed out of bed, weight-bear as tolerated with a postop shoe on the right foot. Due to his left below-knee amputation he is currently only doing transfers and may be transferring with the assistance of a walker. He was given Tylenol for postoperative pain control. He is neuropathic and has minimal pain. He was given his regular diet. Glycemic consult was placed for management of his diabetes. He was admitted to Dr. Dominguez service. He was started on IV vancomycin and cefepime after his procedure. An infectious disease consult was placed. Intraoperative cultures were obtained and grew out Serratia marcescens. This was his previous bacteria in the toe in the past. On postoperative day 1 he was noted to have little bit of kidney function changes so the hospitalist consult was placed. He was allowed out of bed for transfers to a chair as tolerated. PT and OT were ordered. He tolerated regular diet without any postoperative nausea or vomiting. On postoperative day 2 his dressing changed on his right foot. He was seen by the wound care nurse for his pressure ulcer on the right heel. Recommendations were continue to paint the edges of the wound with Betadine and redress. Per the infectious disease consultation and the sensitivities on his cultures we could discontinue the IV cefepime and vancomycin and start him on IV cefepime during his inpatient stay. Recommendations from infectious disease were that he could go home on his cefpodoxime 400 mg twice daily for 7 days once discharged. He had a postop shoe that way we wanted him to wear on the right foot. Encouraged ice and elevation. Did have a slight elevation of his white blood cell count on postop day 2, October 05, 2024 but no evidence of infection were identified. We will recheck his CBC and BMP on October 09 at his first outpatient appointment. Was determined that he was safe for discharge on October 05, 2024. He was discharged to his home in stable condition. Discharge instructions were reviewed with the patient and provided. Follow-up appointments were scheduled. His cefpodoxime was sent to his pharmacy. He knows to call with any problems, questions or concerns. (2) PAD (peripheral artery disease): (3) Pressure ulcer of right heel:
--- NOTE | 2024-10-05 11:42 | Hospitalist Progress Note ---
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 Nonhealing diabetic foot wound S/P R 2nd toe amputation by Dr. Dominguez on 10/03/2024 H/O Left BKA Recent Postop infection of residual limb with MRSA Wound culture: Preliminary growing Serratia Pain/wound management per ortho IV Vanco, cefepime transition to Rocephin>>cefpodoxime 400mg PO bid on discharge as recommended by ID Appreciate infectious disease input Follow-up pathology report to rule out osteo--currently pending Advised to follow-up with PCP on discharge Acute kidney injury--resolved Creatinine 1.1 today Vancomycin discontinued Monitor renal function Avoid nephrotoxic agents as able Received IV fluids Chronic hyponatremia H/O SIADH Sodium 138 today Monitor Hx CAD/CABG/PAD: Hx carotid stenosis/HTN: Follows with vascular surgery Continue Toprol/amlodipine/Lipitor/ASA DM Type I Takes lispro and Lantus at home, glycemic consult placed, a1c in a.m. it was 7.7 in June 4 times daily BGM, continue to monitor Appreciate glycemic pharmacy assistance Continue insulin, adjust as needed Hypothyroidism: Continue levothyroxine DVT Px: As per primary team CODE STATUS Full code Disposition As per primary team Admission and Anticipated Discharge Date Admission Date: October 04, 2024 Subjective Patient is seen and examined at bedside Foot pain in surgical site is controlled Had foot dressing change earlier today Denies any chest pain, dyspnea, nausea, vomiting, abdominal pain Plan to be discharged home today Review of Systems Review of Systems: All systems reviewed & are unremarkable except as noted in Subjective Physical Exam Physical Exam: Physical Exam: Vitals signs as noted above General Appearance:Moderately built and nourished, no apparent distress Head: normocephalic, Atraumatic Eyes: normal inspection, EOMI Neck: supple, Trachea midline Respiratory/Chest: Normal breath sounds, CTA, No accessory muscle use Cardiovascular: S1, S2, No murmur Abdomen/GI:Soft, Non tender, Bowel sounds present Extremities/Musculoskeletal:normal inspection, L BKA, R foot surgical site in dressing Neurologic/Psych:AAOX3, grossly no focal neurological deficits Skin: normal color, warm Results & Data Results & Data Vital Signs (Past 12 Hours) Vital Signs Temp Pulse Resp BP BP Pulse Ox O2 Del Method 10/05/24 07:33 37.2 C 73 16 164/67 H 99 Room Air 10/05/24 06:58 36.8 C 101 H 18 125/83 91 Nasal Cannula O2 Flow Rate 10/05/24 07:33 10/05/24 06:58 4 Laboratory Results Short CBC 10/05/24 Range/Units 05:50 WBC 12.24 H (4.8-10.8) K/ul Hgb 10.5 L (14.0-18.0) g/dl Hct 31.5 L (42.0-52.0) % Plt Count 242 (130-400) K/uL BMP 10/05/24 05:50 Sodium 138 Potassium 4.0 Chloride 107 Carbon Dioxide 23 BUN 35 H Creatinine 1.11 D Glucose 138 H Calcium 9.2
[2024-10-05 11:59] VITALS: BP 147/70; PULSE 71
== END 2024-10-05 14:22 | disposition home health service (06) | DRG 617 ==
LOC: ASU 07:24 → 3E 07:24